=== PATIENT | female | born 1965 | race Caucasian/White ===

== ENCOUNTER 2018-09-24 14:44 | Inpatient (IN) | payer SELFPAY ==
[2018-09-24] MEDS ORDERED: NA CHLORIDE 0.9% 1,000 ML ONE ×2 (15:12→19:22)
[2018-09-24] MEDS ORDERED: ONDANSETRON 4 MG/2 ML VIAL ONE ×2 (15:12→19:22)
[2018-09-24 15:22] LABS: Absolute Lymphocytes (CBC) 2.1 K/uL (0.7-4.9); Absolute Monocytes 0.4 K/uL (0.1-1.3); Absolute Neutrophil 9.5 K/uL (1.8-8.0); Basophils % 0.3 % (0-1.3); Eosinophils % 0.6 % (0-4.4); Hematocrit 41.5 % (36.0-45.0); Lymphocytes % 17.1 % (15.3-44.8); MPV 9.3 fL (7.6-11.3); Monocytes % 3.3 % (3.3-12.3); RBC Red Blood Cell Count 4.85 M/uL (3.86-4.86)
[2018-09-24 16:09] LABS: ALT/SGPT 73 U/L (12-78); AST/SGOT 48 U/L (15-37); Albumin 3.5 g/dL (3.4-5.0); Alkaline Phosphatase 233 U/L (45-117); BUN Blood Urea Nitrogen 11 mg/dL (7-18); Bicarbonate 27 mmol/L (21-32); Bilirubin Direct 0.2 mg/dL (0-0.2); Bilirubin Total 0.4 mg/dL (0.2-1.0); Glucose Level 387 mg/dL (74-106); Lipase 3653 U/L (73-393); Potassium 3.9 mmol/L (3.5-5.1); Protein, Total 8.1 g/dL (6.4-8.2); Sodium Level 139 mmol/L (136-145)
[2018-09-24] MEDS ORDERED: MORPHINE 4 MG/ML SYR ONE (16:24)
[2018-09-24] MEDS ORDERED: PROMETHAZINE 25 MG/ML VIAL ONE (16:44)
--- NOTE | 2018-09-24 18:29 | EDPHYS ---
Physician Documentation [facility] Name: Sunita Donohue Age: 52 yrs Sex: Female : 1965 Arrival Date: 09/24/2018 Time: 14:47 Bed 30 Private MD: ED Physician Graham Mccartney HPI: 09/24 15:29 This 52 yrs old Female presents to ER via Ambulatory with complaints of rn Abdominal Pain, Vomiting. 15:29 The patient presents to the emergency department with nausea, vomiting, diarrhea, rn abdominal pain. Onset: The symptoms/episode began/occurred this morning. Possible causes: unknown. The symptoms are aggravated by nothing. The symptoms are alleviated by nothing. Associated signs and symptoms: Pertinent positives: abdominal pain, diarrhea, nausea, vomiting. Severity of symptoms: At their worst the symptoms were moderate in the emergency department the symptoms are unchanged. The patient has not experienced similar symptoms in the past. The patient has not recently seen a physician. Historical: - Allergies: 15:06 No Known Allergies; ph - Home Meds: 15:16 lisinopril 20 mg Oral tab 1 tab once daily [Active]; rv - PMHx: 15:06 Diabetes - NIDDM; Hypertension; ph - PSHx: 15:06 Tubal ligation; ph - Immunization history:: Adult Immunizations unknown. - Social history:: Smoking status: Patient/guardian denies using tobacco. - Ebola Screening: : No symptoms or risks identified at this time. - Family history:: not pertinent. - Hospitalizations: : No recent hospitalization is reported. ROS: 15:38 Constitutional: Negative for fever, chills, and weight loss, Eyes: Negative for injury, rn pain, redness, and discharge, Neck: Negative for injury, pain, and swelling, Cardiovascular: Negative for chest pain, palpitations, and edema, Respiratory: Negative for shortness of breath, cough, wheezing, and pleuritic chest pain, Abdomen/GI: Negative for constipation, MS/Extremity: Negative for injury and deformity, Skin: Negative for injury, rash, and discoloration, Neuro: Negative for headache, weakness, numbness, tingling, and seizure. Exam: 15:38 Constitutional: This is a well developed, well nourished patient who is awake, alert, rn holding emesis bag and stomach Head/Face: Normocephalic, atraumatic. Eyes: Pupils equal round and reactive to light, extra-ocular motions intact. Lids and lashes normal. Conjunctiva and sclera are non-icteric and not injected. Cornea within normal limits. Periorbital areas with no swelling, redness, or edema. Cardiovascular: Regular rate and rhythm, No pulse deficits. Respiratory: Lungs have equal breath sounds bilaterally, clear to auscultation, No increased work of breathing, no retractions or nasal flaring. Abdomen/GI: soft, mild epigastric tenderness, no rebound Skin: Warm, dry with normal turgor. Normal color with no rashes, no lesions, and no evidence of cellulitis. MS/ Extremity: Pulses equal, no cyanosis. Neurovascular intact. Full, normal range of motion. Equal circumference. Neuro: Awake and alert, GCS 15, oriented to person, place, time, and situation. Cranial nerves II-XII grossly intact. Motor strength 5/5 in all extremities. Sensory grossly intact. Cerebellar exam normal. Vital Signs: 15:06 BP 139 / 73; Pulse 66; Resp 22; Temp 98.2(O); Pulse Ox 99% on R/A; Weight 90.72 kg; ph Height 5 ft. 4 in. (162.56 cm); Pain 10/10; 15:34 BP 145 / 66; Pulse 73; Resp 18 S; Pulse Ox 100% on R/A; rv 16:00 BP 143 / 68; Pulse 75; Resp 17 S; Pulse Ox 100% on R/A; rv 16:38 BP 139 / 65; Pulse 81; Resp 18 S; Pulse Ox 99% on R/A; rv 17:00 BP 141 / 74; Pulse 79; Resp 18; Pulse Ox 100% on R/A; rv 18:00 BP 145 / 75; Pulse 81; Resp 18 S; Pulse Ox 97% on R/A; rv 20:31 BP 138 / 72; Pulse 86; Resp 18; Pulse Ox 100% on R/A; rv 15:06 Body Mass Index 34.33 (90.72 kg, 162.56 cm) ph MDM: 14:57 Patient medically screened. rn 18:23 Data reviewed: vital signs, nurses notes. Counseling: I had a detailed discussion with tw4 the patient and/or guardian regarding: the historical points, exam findings, and any diagnostic results supporting the discharge/admit diagnosis. Physician consultation: Karli Perez MD was called at 18:22, was contacted at 18:22, regarding admission, patient's condition, need to evaluate the patient as soon as possible, and will see patient in inpatient room. 09/24 15:04 Order name: Basic Metabolic Panel rn 09/24 15:04 Order name: CBC with Diff; Complete Time: 16:09 rn 09/24 15:04 Order name: Hepatic Function rn 09/24 15:04 Order name: Lipase rn 09/24 16:42 Order name: Urine Dipstick--Ancillary (enter results) 09/24 16:50 Order name: Urine --Ancillary (enter results) 09/24 15:04 Order name: US Abdomen Limited rn 09/24 15:04 Order name: CT Abd/Pelvis - W/Contrast rn 09/24 18:33 Order name: Triglycerides Level EDNM 09/24 20:01 Order name: Triglycerides Level [facility] 09/24 15:04 Order name: IV Saline Lock; Complete Time: 15:13 rn 09/24 15:04 Order name: Labs collected and sent; Complete Time: 15:13 rn 09/24 15:04 Order name: EKG; Complete Time: 15:07 rn 09/24 15:04 Order name: EKG - Nurse/Tech; Complete Time: 15:12 rn Administered Medications: 15:10 Drug: Zofran 4 mg Route: IVP; Site: right antecubital; rv 16:43 Follow up: Response: Nausea unchanged rv 15:10 Drug: NS 0.9% 1000 ml Route: IV; Rate: 1000 ml; Site: right antecubital; rv 16:43 Follow up: IV Status: Completed infusion rv 16:17 Drug: morphine 4 mg Route: IVP; Site: right antecubital; rv 16:43 Follow up: Response: Pain is decreased rv 16:43 Drug: Phenergan 12.5 mg Route: IVP; Site: right antecubital; rv 20:30 Follow up: Response: Nausea unchanged rv 19:16 Drug: NS 0.9% 1000 ml Route: IV; Rate: 1 bolus; Site: right antecubital; rv 20:29 Follow up: IV Status: Completed infusion rv 19:16 Drug: Zofran 4 mg Route: IVP; Site: right antecubital; rv 20:29 Follow up: Response: Nausea is decreased rv Disposition: 09/24/18 18:28 Hospitalization ordered by Karli Perez for Inpatient Admission. Preliminary diagnosis is Acute pancreatitis, unspecified. - Bed requested for Telemetry/MedSurg (Inpatient). - Status is Inpatient Admission. rv - Condition is Stable. - Problem is new. - Symptoms have improved. UTI on Admission? No Signatures: Dispatcher [employer] EDMS Johanny reyes Graham Roland MD MD rn Hall, Patricia, RN RN Carson Hilliard MD MD tw4 Spencer Rivera RN RN rv Corrections: (The following items were deleted from the chart) 18:47 18:28 Hospitalization Ordered by Karli Perez MD for Inpatient Admission. Preliminary bd diagnosis is Acute pancreatitis, unspecified. Bed requested for Telemetry/MedSurg (Inpatient). Status is Inpatient Admission. Condition is Stable. Problem is new. Symptoms have improved. UTI on Admission? No. tw4 20:43 18:47 09/24/2018 18:28 Hospitalization Ordered by Karli Perez MD for Inpatient rv Admission. Preliminary diagnosis is Acute pancreatitis, unspecified. Bed requested for Telemetry/MedSurg (Inpatient). Status is Inpatient Admission. Condition is Stable. Problem is new. Symptoms have improved. UTI on Admission? No. bd
--- NOTE | 2018-09-24 18:29 | ER ---
Nurse's Notes [facility] Name: Sunita Donohue Age: 52 yrs Sex: Female : 1965 Arrival Date: 09/24/2018 Time: 14:47 Bed 30 Private MD: Diagnosis: Acute pancreatitis, unspecified Presentation: 09/24 15:03 Presenting complaint: Patient states: N/V and abdominal pain since this morning, c/o ph pain in umbilical region, also reports diarrhea yesterday, denies fever or chills. Transition of care: patient was not received from another setting of care. Onset of symptoms was September 24, 2018. Risk Assessment: Do you want to hurt yourself or someone else? Patient reports no desire to harm self or others. Initial Sepsis Screen: Does the patient meet any 2 criteria? No. Patient's initial sepsis screen is negative. Does the patient have a suspected source of infection? No. Patient's initial sepsis screen is negative. Care prior to arrival: None. 15:03 Method Of Arrival: Ambulatory ph 15:03 Acuity: RIKI 3 ph Historical: - Allergies: 15:06 No Known Allergies; ph - Home Meds: 15:16 lisinopril 20 mg Oral tab 1 tab once daily [Active]; rv - PMHx: 15:06 Diabetes - NIDDM; Hypertension; ph - PSHx: 15:06 Tubal ligation; ph - Immunization history:: Adult Immunizations unknown. - Social history:: Smoking status: Patient/guardian denies using tobacco. - Ebola Screening: : No symptoms or risks identified at this time. - Family history:: not pertinent. - Hospitalizations: : No recent hospitalization is reported. Screenin:15 Abuse screen: Denies threats or abuse. Denies injuries from another. Nutritional rv screening: No deficits noted. Tuberculosis screening: No symptoms or risk factors identified. Fall Risk None identified. Assessment: 15:14 General: Appears in no apparent distress. uncomfortable, Behavior is calm, cooperative. rv Pain: Complains of pain in abdomen. Neuro: Level of Consciousness is awake, alert, obeys commands, Oriented to person, place, time, situation. Cardiovascular: Capillary refill < 3 seconds. Respiratory: Airway is patent. GI: Bowel sounds present X 4 quads. Abd is soft in epigastric area Abdomen is tender to palpation. : No signs and/or symptoms were reported regarding the genitourinary system. EENT: No signs and/or symptoms were reported regarding the EENT system. Derm: Skin is intact. Musculoskeletal: No signs and/or symptoms reported regarding the musculoskeletal system. 16:45 Reassessment: Patient appears in no apparent distress at this time. pain is decreased. rv patient still with nausea. 18:05 Reassessment: Patient appears in no apparent distress at this time. awaiting ct scan. rv Vital Signs: 15:06 BP 139 / 73; Pulse 66; Resp 22; Temp 98.2(O); Pulse Ox 99% on R/A; Weight 90.72 kg; ph Height 5 ft. 4 in. (162.56 cm); Pain 10/10; 15:34 BP 145 / 66; Pulse 73; Resp 18 S; Pulse Ox 100% on R/A; rv 16:00 BP 143 / 68; Pulse 75; Resp 17 S; Pulse Ox 100% on R/A; rv 16:38 BP 139 / 65; Pulse 81; Resp 18 S; Pulse Ox 99% on R/A; rv 17:00 BP 141 / 74; Pulse 79; Resp 18; Pulse Ox 100% on R/A; rv 18:00 BP 145 / 75; Pulse 81; Resp 18 S; Pulse Ox 97% on R/A; rv 20:31 BP 138 / 72; Pulse 86; Resp 18; Pulse Ox 100% on R/A; rv 15:06 Body Mass Index 34.33 (90.72 kg, 162.56 cm) ph ED Course: 14:47 Patient arrived in ED. mr 14:57 Graham Mccartney MD is Attending Physician. rn 15:05 Triage completed. ph 15:06 Arm band placed on Patient placed in an exam room, on a stretcher, on pulse oximetry. ph 15:10 Inserted saline lock: 18 gauge in right antecubital area, using aseptic technique. rv Blood collected. 15:13 Basic Metabolic Panel Sent. rv 15:13 CBC with Diff Sent. rv 15:13 Hepatic Function Sent. rv 15:13 Lipase Sent. rv 15:13 US Abdomen Limited Sent. rv 15:14 EKG done, by driver service technician. reviewed by Graham Mccartney MD. at1 15:15 Patient has correct armband on for positive identification. Bed in low position. Call rv light in reach. Side rails up X 1. Adult w/ patient. Pulse ox on. NIBP on. 15:19 US Abdomen Limited In Process Unspecified. EDMS 18:[address] sj 18:17 CT completed. Patient tolerated procedure well. Patient moved back from CT. vm2 18:17 CT Abd/Pelvis - W/Contrast In Process Unspecified. EDMS 18:27 Karli Perez MD is Hospitalizing Provider. tw4 20:31 No provider procedures requiring assistance completed. Patient admitted, IV remains in rv place. intact. Administered Medications: 15:10 Drug: Zofran 4 mg Route: IVP; Site: right antecubital; rv 16:43 Follow up: Response: Nausea unchanged rv 15:10 Drug: NS 0.9% 1000 ml Route: IV; Rate: 1000 ml; Site: right antecubital; rv 16:43 Follow up: IV Status: Completed infusion rv 16:17 Drug: morphine 4 mg Route: IVP; Site: right antecubital; rv 16:43 Follow up: Response: Pain is decreased rv 16:43 Drug: Phenergan 12.5 mg Route: IVP; Site: right antecubital; rv 20:30 Follow up: Response: Nausea unchanged rv 19:16 Drug: NS 0.9% 1000 ml Route: IV; Rate: 1 bolus; Site: right antecubital; rv 20:29 Follow up: IV Status: Completed infusion rv 19:16 Drug: Zofran 4 mg Route: IVP; Site: right antecubital; rv 20:29 Follow up: Response: Nausea is decreased rv Outcome: 18:28 Decision to Hospitalize by Provider. tw4 20:32 Admitted to Med/surg accompanied by tech, via wheelchair, room 209, with chart, Report rv called to SAMARA TYLER 20:32 Condition: good 20:32 Instructed on the need for admit. 20:43 Patient left the ED. rv Signatures: Dispatcher [employer] EDDE Leija, Gely RamirezShabana Roman, MD MD rn Gonzales, Amanda, channel marketing specialist EKG Tat1 Meagn Isaac RN RN Any Mata 2 Carson Hilliard MD MD tw4 Spencer Rivera, RN RN rv
--- NOTE | 2018-09-24 18:32 | RAD REPORT ---
EXAM DESCRIPTION: CT - Abdomen Pelvis W Contrast - 09/24/2018 6:17 pm CLINICAL HISTORY: Abdominal pain with vomiting COMPARISON: 2016 TECHNIQUE: Computed axial tomography of the abdomen pelvis was obtained. 100 cc Isovue-300 was admin istered intravenously. Oral contrast was given All CT scans are performed using dose optimization technique as appropriate and may include automated exposure control or mA/KV adjustment according to patient size. FINDINGS: Fatty liver Moderate stranding is present within the fat adjacent to the pancreas. A pseudocyst is not seen. A sm all amount of ill-defined peripancreatic fluid is present. . There is no evidence of diverticulitis. Small umbilical hernia IMPRESSION: Moderate pancreatitis.
--- NOTE | 2018-09-24 18:33 | RAD REPORT ---
EXAM DESCRIPTION: US - Abdomen Exam Limited - 09/24/2018 3:20 pm CLINICAL HISTORY: Abdominal pain. COMPARISON: None. FINDINGS: The gallbladder wall is not thickened. A gallstone is not seen. The biliary tree is normal caliber. IMPRESSION: Unremarkable gallbladder ultrasound.
--- NOTE | 2018-09-24 19:38 | EKG ---
Test Date: 2018-09-24 Test Time: 15:06:31 Business Continuity Specialist: MIGDALIA MEASUREMENT RESULTS: Intervals: Rate: 67 [place]: 158 QRSD: 90 QT: 436 QTc: 460 [place]: P: 48 [place]: 158 QRS: 43 T: 36 INTERPRETIVE STATEMENTS: Normal sinus rhythm Normal ECG Compared to ECG 04/19/2017 20:05:24 No significant changes Electronically Signed On 09-24-18 19:37:14 CARAMEL CUTTER HELPER by Juaquin Oliveira
[2018-09-24 20:03] LABS: Urine Blood TRACE (NEG); Urine Glucose 2+ (NEG); Urine Protein NEGATIVE (NEG); Urine Specific Gravity 1.015 (1.005-1.030); Urine pH 6.5 (5.0-7.0)
[2018-09-24 20:03] LABS: Urine Specific Gravity 1.015 (1.005-1.030)
[2018-09-24] MEDS ORDERED: MORPHINE 2 MG/ML SYR IV PRN (21:31)
--- NOTE | 2018-09-24 21:41 | P.HP ---
Certification for Inpatient Patient admitted to: Inpatient With expected LOS: >2 Midnights Practitioner: I am a practitioner with admitting privileges, knowledge of patient current condition, hospital course, and medical plan of care. Services: Services provided to patient in accordance with Admission requirements found in Title 42 Section 412.3 of the Code of Federal Regulations Patient History Date of Service: 09/24/18 Reason for admission: acute pancreatitis History of Present Illness: Ms Donohue is a 52 yeas old woman with history of DM II, HTN, who start a couple of days ago with some nausea and vomiting. This morning she start complaining of severe abdominal pain, localized in epigastric area, radiated to left upper quadrant, 10/10 of intensity. N/V got worse today. No history of fever but has had chills. She has never had this kind of pain in the past. She does not drink alcohol. Lab work remarkable for leukocytosis with elevated lipase. CT abd/pelvis consistent with acute pancreatitis. Abd US is negative for cholelithiasis, biliary tree with normal caliber, normal gallbladder. Allergies No Known Allergy (Uncoded 09/24/18 21:33) Unknown No Known Al Allergy (Uncoded 04/18/17 18:14) Unknown No Known All Allergy (Uncoded 04/19/17 23:26) Unknown Home medications list reviewed: Yes Home Medications: Lisinopril 20 mg PO DAILY 09/24/18 - Past Medical/Surgical History -: HTN -: diabetes mellitus II -: tubal ligation - Family History Family History: Reviewed- Non-Contributory - Social History Smoking Status: Former smoker Alcohol use: No CD- Drugs: No Place of Residence: Home Review of Systems 10-point ROS is otherwise unremarkable Physical Examination - Vital Signs Temperature: 98.8 F Blood Pressure: 138/72 Pulse: 86 Respirations: 18 Pulse Ox (%): 97 - Physical Exam General: Alert, In no apparent distress HEENT: Atraumatic, PERRLA, Mucous membr. moist/pink, EOMI, Sclerae nonicteric Neck: Supple, 2+ carotid pulse no bruit, No LAD, Without JVD or thyroid abnormality Respiratory: Clear to auscultation bilaterally, Normal air movement Cardiovascular: Regular rate/rhythm, Normal S1 S2 Gastrointestinal: Normal bowel sounds, Tenderness (epigastric area) Musculoskeletal: No tenderness Integumentary: No rashes Neurological: Normal speech, Normal strength at 5/5 x4 extr, Normal tone, Normal affect Lymphatics: No axilla or inguinal lymphadenopathy - Studies Laboratory Data (last 24 hrs) 09/24/18 15:10: WBC 12.1 H, Hgb 13.7, Hct 41.5, Plt Count 258 09/24/18 15:10: Sodium 139, Potassium 3.9, BUN 11, Creatinine 0.69, Glucose 387 H, Total Bilirubin 0.4, AST 48 H, ALT 73, Alkaline Phosphatase 233 H, Triglycerides 163 H, Lipase 3653 H Assessment and Plan - Problems (Diagnosis) (1) Acute pancreatitis Current Visit: Yes Status: Acute Qualifiers: Pancreatitis type: idiopathic Acute pancreatitis complication: no infection or necrosis Qualified Code(s): K85.00 - Idiopathic acute pancreatitis without necrosis or infection (2) HTN (hypertension) Current Visit: Yes Status: Acute Qualifiers: Hypertension type: essential hypertension Qualified Code(s): I10 - Essential (primary) hypertension (3) Diabetes mellitus Current Visit: Yes Status: Acute Qualifiers: Diabetes mellitus type: type 2 Diabetes mellitus long-term insulin use: without long term care social worker use Diabetes mellitus complication status: with unspecified complications Qualified Code(s): E11.8 - Type 2 diabetes mellitus with unspecified complications - Plan The patient will be admitted to the hospital due to acute pancreatitis. She has elevated but relatively low triglycerides to induce pancreatitis, no obvious gallstones, no alcohol intake history. Etiology is not clear at this point. Will continue with IV fluids, bowel rest, pain medication, repeat lab work in AM. - Advance Directives Does patient have a Living Will: No Does patient have a Durable POA for Healthcare: No - Code Status/Comfort Care Code Status Assessed: Yes Code Status: Full Code
[2018-09-24] MEDS: NA CHLORIDE 0.9% 1,000 ML IV SCH (22:05)
[2018-09-24] MEDS: MORPHINE 4 MG/ML SYR IV PRN (22:31)
[2018-09-25] MEDS: INSULIN -REGULAR HUMAN 50 UNIT/0.5 ML ML SQ SCH ×4 (00:36→18:00)
[2018-09-25] MEDS: ONDANSETRON 4 MG/2 ML VIAL IV PRN ×5 (00:37→23:08)
[2018-09-25 01:13] LABS: Urine Appearance CLEAR; Urine Bilirubin NEGATIVE (NEG); Urine Blood TRACE (NEG); Urine Color YELLOW; Urine Glucose 3+ (NEG); Urine Protein NEGATIVE (NEG); Urine Specific Gravity >=1.030 (1.005-1.030); Urine pH 5.5 (5.0-7.0)
[2018-09-25 01:18] LABS: Urine Microscopic Reflex ORDER UMIC
[2018-09-25 01:57] LABS: Urine Bacteria <20 /HPF (<20); Urine Culture Reflex Order NOT NEEDED; Urine RBC <5 /HPF (NONE SEEN)
[2018-09-25] MEDS: MORPHINE 4 MG/ML SYR IV PRN ×4 (05:41→22:42)
[2018-09-25] MEDS: NA CHLORIDE 0.9% 1,000 ML IV SCH ×4 (05:42→23:45)
[2018-09-25 06:16] LABS: Absolute Lymphocytes (CBC) 1.9 K/uL (0.7-4.9); Absolute Monocytes 0.4 K/uL (0.1-1.3); Absolute Neutrophil 7.6 K/uL (1.8-8.0); Basophils % 0.2 % (0-1.3); Eosinophils % 0.2 % (0-4.4); Hematocrit 39.1 % (36.0-45.0); Lymphocytes % 18.7 % (15.3-44.8); Monocytes % 4.1 % (3.3-12.3); RBC Red Blood Cell Count 4.56 M/uL (3.86-4.86)
[2018-09-25 06:48] LABS: ALT/SGPT 59 U/L (12-78); AST/SGOT 31 U/L (15-37); Alkaline Phosphatase 190 U/L (45-117); BUN Blood Urea Nitrogen 10 mg/dL (7-18); Bicarbonate 27 mmol/L (21-32); Bilirubin Total 0.4 mg/dL (0.2-1.0); Glucose Level 247 mg/dL (74-106); Lipase 2039 U/L (73-393); Magnesium 1.8 mg/dL (1.8-2.4); Potassium 3.8 mmol/L (3.5-5.1); Protein, Total 7.2 g/dL (6.4-8.2); Sodium Level 140 mmol/L (136-145)
[2018-09-25] MEDS ORDERED: MAGNESIUM SULFATE 1 gm IVPB 1 GM/100 ML BAG IV ONE (08:00)
[2018-09-25] MEDS: ENOXAPARIN 40 MG/0.4 ML SQ SCH (08:46)
[2018-09-25] MEDS: LISINOPRIL 20 MG TAB PO SCH (08:51)
[2018-09-25] MEDS ORDERED: INFLUENZA VACCINE (for 3y+) 0.5 ML DOSE IMVAC ONE (09:00)
[2018-09-25] MEDS ORDERED: KCL 20 MEQ/100 mL IVPB 20 MEQ/100 ML BAG IV SCH (09:00)
[2018-09-25] MEDS: NYSTATIN 500,000 UNIT/5 ML UDC PO SCH ×4 (10:09→20:42)
--- NOTE | 2018-09-25 12:31 | PN ---
Date of Progress Note: 09/25/2018 Subjective: The patient is seen and examined. Chart reviewed, and case discussed with RN. Family at the bedside. Treatment plan explained. All questions were answered. The patient states that she continues to have some nausea. No significant amount of vomiting. Does report some abdominal pain. Medications: List reviewed. Physical Examination: Vital Signs: Temperature 98.5, heart rate 82, blood pressure 179/81, respirations 16, O2 of 98% on room air. General: Awake, alert, oriented x3. An ill-appearing obese female. CV: S1, S2. Peripheral pulses present. No murmurs. Respiratory: Moving air well bilaterally. No wheezing or stridor. Gastrointestinal: Abdomen is soft. Tenderness to palpation in the epigastric region. No guarding or rigidity. Bowel sounds positive. Extremities: No clubbing, cyanosis, or edema. Neuro: Cranial nerves 2 through 12 intact grossly. No focal neurological deficit. Speech is normal. Laboratory Data: Sodium 140, potassium 3.8, chloride 108, CO2 of 27, BUN 10, creatinine 0.57, glucose 247, calcium 8.3, magnesium 1.8, albumin 3, lipase 2039. WBC 10, H and H 12.9 and 39.1, platelets 239, neutrophils 76%. Assessment: A 52-year-old female with: 1. Acute pancreatitis, likely idiopathic. No infection or necrosis. CT scan consistent with pancreatitis. Ultrasound is negative for any gallbladder issues or stones. We will continue with IV fluids, pain medications. We will start on clear liquid diet. 2. Essential hypertension, stable. We will adjust medications. 3. Diabetes mellitus type 2 without long-term use of insulin with hyperglycemia. The patient has not been taking any medications, did not see any doctor. The patient was counseled. We will need diabetic education and diabetic supplies. thoroughbred horse farm manager informed, she will provide resources to the patient. 4. Obesity, BMI 31. 5. Noncompliance, intentional. 6. Thrush: nystatin Plan: We will continue to monitor lipase levels. Advanced diet as tolerated. Likely discharge in the next 24 to 48 hours once the pain is improved and tolerating diet. /MODTrevon Voice ID: [id number] Report ID: [id number] [facility]ALKap[facility]
[2018-09-26] MEDS: INSULIN -REGULAR HUMAN 50 UNIT/0.5 ML ML SQ SCH ×6 (00:34→23:39)
[2018-09-26] MEDS: NA CHLORIDE 0.9% 1,000 ML IV SCH ×3 (06:03→21:32)
[2018-09-26] MEDS: MORPHINE 4 MG/ML SYR IV PRN ×4 (06:09→23:38)
[2018-09-26] MEDS: ONDANSETRON 4 MG/2 ML VIAL IV PRN ×3 (06:09→17:46)
[2018-09-26 06:22] LABS: BUN Blood Urea Nitrogen 7 mg/dL (7-18); Bicarbonate 23 mmol/L (21-32); Glucose Level 166 mg/dL (74-106); Lipase 267 U/L (73-393); Magnesium 1.9 mg/dL (1.8-2.4); Potassium 3.4 mmol/L (3.5-5.1); Sodium Level 139 mmol/L (136-145)
[2018-09-26] MEDS: KCL 20 MEQ/100 mL IVPB 20 MEQ/100 ML BAG IV SCH ×2 (08:36→11:21)
[2018-09-26] MEDS: NYSTATIN 500,000 UNIT/5 ML UDC PO SCH ×4 (08:37→21:32)
[2018-09-26] MEDS: ENOXAPARIN 40 MG/0.4 ML SQ SCH (08:37)
[2018-09-26] MEDS: LISINOPRIL 20 MG TAB PO SCH ×2 (08:43→13:48)
--- NOTE | 2018-09-26 13:32 | RAD REPORT ---
EXAM DESCRIPTION: MRI - Cholangiogram - 09/26/2018 1:23 pm CLINICAL HISTORY: Abdominal pain, nausea and vomiting COMPARISON: CT study September 24, abdomen ultrasound September 24 TECHNIQUE: Axial and coronal heavily T2 weighted sequences were obtained. Coronal T2 HASTE fat satur ation static and coronal multiplane reconstruction imaging generated and reviewed. Horizontal and vida tical axis rotational views obtained using maximum intensity projection (MIP) protocol. FINDINGS: No gallbladder abnormality identified. Biliary tree is normal size at 5- 6 mm maximum diam eter. No duct stone identifiable. No stricture, mass or suspicious finding identifiable. Pancreatic d uct is not visualized. IMPRESSION: Unremarkable MRCP examination.
--- NOTE | 2018-09-26 13:45 | RAD REPORT ---
EXAM DESCRIPTION: RAD - Chest Pa And Lat (2 Views) - 09/26/2018 1:34 pm CLINICAL HISTORY: Abdominal pain, smoking history, nausea and vomiting COMPARISON: April 2017 TECHNIQUE: PA and lateral views of the chest were obtained. FINDINGS: The lungs are clear. Heart size is normal and central vasculature is within normal limit s. No pleural effusion or pneumothorax seen. No acute bony finding noted. No aortic abnormality. IMPRESSION: No acute cardiopulmonary process. No significant interval changes.
[2018-09-26] MEDS: METOCLOPRAMIDE 10 MG/2mL INJ IV PRN ×2 (15:45→23:38)
--- NOTE | 2018-09-26 16:32 | PN ---
Date of Progress Note: 09/26/2018 Subjective: The patient is seen and examined. Chart reviewed and case discussed with RN. The patient states her nausea and vomiting have improved, yesterday was unable to tolerate clear liquids. Medications: List reviewed. Physical Examination: Vital Signs: Temperature 97.3, heart rate 79, blood pressure 119/59, respirations 18, O2 98% on room air. General: Awake, alert, oriented x3. Some distress due to pain, ill-appearing, older than stated age, obese female. CV: S1, S2. Regular rate and rhythm. Peripheral pulses present. Respiratory: Moving air well bilaterally. No wheezing or stridor. Gastrointestinal: Abdomen is soft. Mild tenderness to palpation in the epigastric region, however, improved. No distention. No rebound or guarding. Bowel sounds are positive. Extremities: No clubbing, cyanosis, or edema. Neurologic: Nonfocal. Laboratory Data: Sodium 139, potassium 3.4, chloride 108, CO2 23, BUN 7, creatinine 0.39, glucose 156. Hemoglobin A1c 13.3%. Calcium is 8, lipase 267. Assessment: A 52-year-old female with: 1. Acute pancreatitis, likely idiopathic. CT scan did not show any infection or necrosis. GI has been consulted. Lipase is normalized. The patient's symptoms are improving. We will start on clear liquid diet. Continue IV fluids and pain medications. 2. Diabetes mellitus type 2 without long-term use of insulin with hyperglycemia, uncontrolled. Hemoglobin A1c is 13%. Continue with sliding scale insulin and monitor Accu-Cheks. The patient to be set up with diabetic education as an outpatient. 3. Essential hypertension, stable. 4. Obesity, BMI 31. 5. Noncompliance, intentional. 6. Thrush. We will continue nystatin swish and swallow. 7. Gastrointestinal and deep venous thrombosis prophylaxis with Lovenox. 8. Hypokalemia: replace and monitor. Plan: Start on clear liquid diet and advance as tolerated. We will anticipate discharge in the next 24 hours if continues to improve. Appreciate GI recommendations. ADDENDUM: Patient continues to have vomiting despite zofran. Likely has diabetic gastroparesis. Trial of reglan. SA/MODL Voice ID: [id number] Report ID: [id number] [facility]
[2018-09-27] MEDS ORDERED: D50W 25 GM/50 ML SYRINGE IV PRN (00:15)
[2018-09-27] MEDS ORDERED: GLUCAGON 1 MG/VIAL IM PRN (00:15)
[2018-09-27] MEDS: NA CHLORIDE 0.9% 1,000 ML IV SCH ×4 (03:36→20:49)
[2018-09-27 04:59] LABS: BUN Blood Urea Nitrogen 6 mg/dL (7-18); Bicarbonate 25 mmol/L (21-32); Glucose Level 122 mg/dL (74-106); Lipase 141 U/L (73-393); Potassium 3.4 mmol/L (3.5-5.1); Sodium Level 142 mmol/L (136-145)
[2018-09-27] MEDS: INSULIN -REGULAR HUMAN 50 UNIT/0.5 ML ML SQ SCH ×4 (07:30→20:51)
[2018-09-27] MEDS: METOCLOPRAMIDE 10 MG/2mL INJ IV PRN (08:22)
[2018-09-27] MEDS: MORPHINE 4 MG/ML SYR IV PRN ×2 (08:22→20:50)
[2018-09-27] MEDS: NYSTATIN 500,000 UNIT/5 ML UDC PO SCH ×4 (09:00→20:50)
[2018-09-27] MEDS ORDERED: POTASSIUM CL SA 10 MEQ TAB PO ONE ×2 (09:00→17:00)
[2018-09-27] MEDS: LISINOPRIL 20 MG TAB PO SCH (09:01)
[2018-09-27] MEDS: ENOXAPARIN 40 MG/0.4 ML SQ SCH (09:01)
[2018-09-27] MEDS: ONDANSETRON 4 MG/2 ML VIAL IV PRN (10:03)
[2018-09-27] MEDS: METOCLOPRAMIDE 10 MG/2mL INJ IV SCH ×3 (12:33→20:50)
--- NOTE | 2018-09-27 18:11 | P.PN ---
Subjective Date of Service: 09/27/18 Chief Complaint: acute pancreatitis Subjective: Improving (Pancreatitis largely resolved with normal lipase and no abdominal pain now. But still with N/V and HgbA1c elevated at 13.3. Reglan started at 5 mg IV tid.) Review of Systems 10-point ROS is otherwise unremarkable Gastrointestinal: Nausea, Vomiting Physical Examination - Vital Signs Temperature: 98.7 F Blood Pressure: 191/88 Pulse: 89 Respirations: 18 Pulse Ox (%): 96 - Physical Exam General: Alert, In no apparent distress, Oriented x3, Cooperative, Disheveled HEENT: Atraumatic, Normocephalic, PERRLA, EOMI Neck: Supple Respiratory: Normal air movement Cardiovascular: Normal pulses, Regular rate/rhythm Gastrointestinal: Soft and benign, No tenderness, No rebound, No guarding Neurological: Normal speech, Normal strength at 5/5 x4 extr Assessment And Plan - Current Problems (Diagnosis) (1) Epigastric abdominal pain Current Visit: Yes Status: Acute Comment: Resolved. (2) Nausea & vomiting Current Visit: Yes Status: Acute Comment: Possibly due to DM gastroparesis. (3) Obesity Current Visit: Yes Status: Acute (4) Weight loss Current Visit: Yes Status: Acute Comment: 15 lbs in one month, unexplained. Needs MMG, pap smear. (5) Acute pancreatitis Onset Date: 09/25/18 Current Visit: Yes Status: Acute Comment: Resolved. Qualifiers: Pancreatitis type: idiopathic Acute pancreatitis complication: no infection or necrosis Qualified Code(s): K85.00 - Idiopathic acute pancreatitis without necrosis or infection (6) Diabetes mellitus Onset Date: 09/25/18 Current Visit: Yes Status: Acute Comment: HgbA1c elevated at 13.3 Qualifiers: Diabetes mellitus type: type 2 Diabetes mellitus residential insulin use: without residential use Diabetes mellitus complication status: with unspecified complications Qualified Code(s): E11.8 - Type 2 diabetes mellitus with unspecified complications (7) HTN (hypertension) Onset Date: 09/25/18 Current Visit: Yes Status: Acute Qualifiers: Hypertension type: essential hypertension Qualified Code(s): I10 - Essential (primary) hypertension - Plan REC: 1) Increase Reglan from 5 to 10 mg IV qac/qhs 2) Zofran scheduled 3) DM diet and increase exercise
--- NOTE | 2018-09-27 18:53 | PN ---
Date of Progress Note: 09/27/2018 Subjective: The patient is seen and examined. Chart reviewed, and case discussed with RN. The patient is still having significant amount of nausea and vomiting, unable to keep any of her food down. Pain is well controlled. Medications: List reviewed. Physical Examination: Vital Signs: Temperature 98, heart rate 81, blood pressure 136/73, respirations 18, O2 of 98% on room air. General: Awake, alert, oriented x3. Some mild distress. Appears older than stated age. An obese female. CV: S1, S2. Sinus rhythm. Rhythm regular rate. No murmurs. Respiratory: Moving air well bilaterally. No wheezing or stridor. Gastrointestinal: Abdomen is soft. Mild tenderness to palpation in the epigastric region. No rebound or guarding. Nondistended. Positive bowel sounds. Extremities: No clubbing, cyanosis, or edema. Neurologic: Nonfocal. Laboratory Data: Sodium 142, potassium 3.4, chloride 111, CO2 of 25, BUN 6, creatinine 0.37, glucose 122, calcium 8.2, lipase 141. MRCP shows unremarkable findings. No stone or stricture. Assessment: A 52-year-old female with: 1. Acute pancreatitis, likely idiopathic. CT scan, ultrasound, and magnetic resonance cholangiopancreatography negative for any ductal dilatation. CT scan did show pancreatitis without any infection or necrosis. Lipase is normalized. The patient's pain is improved, however, unable to tolerate a diet, which may be more related to her diabetes and gastroparesis. 2. Diabetes mellitus type 2 without long-term use of insulin with hyperglycemia, uncontrolled. Hemoglobin A1c 13%. We will continue with sliding scale insulin. Add long-acting insulin. 3. Hypokalemia, replace. 4. Diabetic gastroparesis. We will add Reglan with meals scheduled. 5. Obesity, BMI 31. 6. Noncompliance, intentional. 7. Thrush. Nystatin swish and swallow. 8. Gastrointestinal and deep venous thrombosis prophylaxis, PPI and Lovenox. 9. Intractable N/V: anti-emetics Plan: Trial of Reglan. The patient is still unable to tolerate her diet. We will discharge once the patient is able to tolerate diet and improved clinically. SA/MODL Voice ID: [id number] Report ID: [id number] MTDKapil
[2018-09-28] MEDS: MORPHINE 4 MG/ML SYR IV PRN ×2 (03:28→08:30)
[2018-09-28] MEDS: ONDANSETRON 4 MG/2 ML VIAL IV PRN ×2 (03:28→14:44)
[2018-09-28] MEDS: NA CHLORIDE 0.9% 1,000 ML IV SCH ×4 (04:38→20:35)
[2018-09-28 05:29] LABS: Magnesium 1.9 mg/dL (1.8-2.4); Potassium 3.1 mmol/L (3.5-5.1)
[2018-09-28] MEDS: ENOXAPARIN 40 MG/0.4 ML SQ SCH (08:29)
[2018-09-28] MEDS: KCL 20 MEQ/100 mL IVPB 20 MEQ/100 ML BAG IV SCH ×3 (08:29→11:56)
[2018-09-28] MEDS: METOCLOPRAMIDE 10 MG/2mL INJ IV SCH ×4 (08:29→20:36)
[2018-09-28] MEDS: NYSTATIN 500,000 UNIT/5 ML UDC PO SCH ×4 (08:29→20:36)
[2018-09-28] MEDS: INSULIN -REGULAR HUMAN 50 UNIT/0.5 ML ML SQ SCH ×4 (08:29→20:45)
[2018-09-28] MEDS: LISINOPRIL 20 MG TAB PO SCH (08:30)
--- NOTE | 2018-09-28 14:40 | PN ---
Date of Progress Note: 09/28/2018 Subjective: Patient is seen and examined. Chart reviewed and case was discussed with RN and Dr. Eugenio vernon. The patient continues to have significant amount of nausea and vomiting. Not able to tolerate any of her food. Does report some mild pain. Medication: List reviewed. Physical Examination: Vital Signs: Temperature 97.9, heart rate 150/75, respirations 18, O2 97% on room air, heart rate 75 . General: Awake, alert, oriented x3. Appears older than stated age. Obese female. CV: S1, S2. Regular rate and rhythm. Peripheral pulses present. Respiratory: Moving air well bilaterally. No wheezing or stridor. Gastrointestinal: Abdomen is soft. Mild tenderness to palpation. No rebound or guarding. Positive bowel sounds. No masses. No hepatosplenomegaly. Extremities: No clubbing, cyanosis, or edema. Neurologic: Nonfocal. Laboratory Data: Potassium 3.1, magnesium 1.9. Lipase 103. Assessment And Plan: A 52-year-old female with, 1.Acute pancreatitis, likely idiopathic. Lipase has normalized. Significantly improved. Still has some pain. We will discontinue morphine, switch to p.o. pain medications. Continue IV fluids. Ferdinand reciate Dr. Mendes's input. 2.Intractable nausea and vomiting, likely related to diabetic gastroparesis. Reglan dose has been i ncreased to 10 mg IV with meals. Continue Zofran alternatively. We will encourage patient to increa se p.o. intake. 3.Hypokalemia. Replace and monitor. 4.Diabetes mellitus type 2 with long-term use of insulin with hyperglycemia. Continue sliding scale insulin. Monitor Accu-Cheks. 5.Obesity, BMI 31. Counseled. 6.Weight loss, likely secondary to untreated diabetes. The patient is unable to utilize sugar and c irculating in the bloodstream causing neuropathy, nephropathy, etc. The patient was counseled regard ing obtaining cancer screenings including Pap smear, mammogram, and colon cancer screening. The CA19 -9 is pending. Chest x-ray is clear. 7.Noncompliance, intentional. 8.Thrush, improved. Continue nystatin. 9.Diabetic gastroparesis. Reglan dose increased. 10.Gastrointestinal and deep venous thrombosis prophylaxis addressed. /NEAL Voice ID: [id number] Report ID: [id number]
--- NOTE | 2018-09-28 16:24 | P.PN ---
Subjective Date of Service: 09/28/18 Chief Complaint: acute pancreatitis, N/V Subjective: No new changes (N/V unchanged though Reglan increased from 5 to 10 mg. Pancreatitis resolved with normal lipase. She reports occasional MICHELET pain today. Obese with recent 15 lbs weight loss.) Review of Systems 10-point ROS is otherwise unremarkable Gastrointestinal: Nausea, Vomiting, Abdominal Pain Physical Examination - Vital Signs Temperature: 98.7 F Blood Pressure: 178/83 Pulse: 76 Respirations: 18 Pulse Ox (%): 96 - Physical Exam General: Alert, In no apparent distress, Oriented x3, Cooperative HEENT: Atraumatic, Normocephalic, PERRLA, EOMI Neck: Supple Respiratory: Normal air movement Cardiovascular: Normal pulses Gastrointestinal: Soft and benign, No tenderness, No rebound, No guarding Neurological: Normal speech, Normal strength at 5/5 x4 extr Assessment And Plan - Current Problems (Diagnosis) (1) Epigastric abdominal pain Current Visit: Yes Status: Acute Comment: Occasional (2) Nausea & vomiting Current Visit: Yes Status: Acute Comment: Possibly due to DM gastroparesis, but not responsive to increased Reglan dose 5 to 10 mg (3) Obesity Current Visit: Yes Status: Acute (4) Weight loss Current Visit: Yes Status: Acute Comment: 15 lbs in one month, unexplained. Needs MMG, pap smear. (5) Acute pancreatitis Onset Date: 09/25/18 Current Visit: Yes Status: Acute Comment: Resolved. Qualifiers: Pancreatitis type: idiopathic Acute pancreatitis complication: no infection or necrosis Qualified Code(s): K85.00 - Idiopathic acute pancreatitis without necrosis or infection (6) Diabetes mellitus Onset Date: 09/25/18 Current Visit: Yes Status: Acute Comment: HgbA1c elevated at 13.3 Qualifiers: Diabetes mellitus type: type 2 Diabetes mellitus distribution estimator insulin use: without distribution estimator use Diabetes mellitus complication status: with unspecified complications Qualified Code(s): E11.8 - Type 2 diabetes mellitus with unspecified complications (7) HTN (hypertension) Onset Date: 09/25/18 Current Visit: Yes Status: Acute Qualifiers: Hypertension type: essential hypertension Qualified Code(s): I10 - Essential (primary) hypertension - Plan REC: 1) EGD in AM 2) DM diet and increase exercise
[2018-09-28] MEDS: HYDROCODONE/APAP 5/325 MG TAB PO PRN (19:35)
[2018-09-29] MEDS: HYDROCODONE/APAP 5/325 MG TAB PO PRN ×2 (04:34→18:59)
[2018-09-29] MEDS: ONDANSETRON 4 MG/2 ML VIAL IV PRN ×2 (04:34→13:43)
[2018-09-29 05:48] LABS: ALT/SGPT 43 U/L (12-78); AST/SGOT 23 U/L (15-37); Albumin 2.9 g/dL (3.4-5.0); Alkaline Phosphatase 195 U/L (45-117); BUN Blood Urea Nitrogen 5 mg/dL (7-18); Bicarbonate 19 mmol/L (21-32); Bilirubin Total 0.6 mg/dL (0.2-1.0); Glucose Level 138 mg/dL (74-106); Potassium 3.1 mmol/L (3.5-5.1); Protein, Total 7.5 g/dL (6.4-8.2); Sodium Level 137 mmol/L (136-145)
[2018-09-29 05:57] LABS: Absolute Lymphocytes (CBC) 3.1 K/uL (0.7-4.9); Absolute Monocytes 0.6 K/uL (0.1-1.3); Basophils % 0.6 % (0-1.3); Eosinophils % 1.5 % (0-4.4); Hematocrit 39.2 % (36.0-45.0); Lymphocytes % 28.6 % (15.3-44.8); MPV 8.9 fL (7.6-11.3); Monocytes % 5.5 % (3.3-12.3); RBC Red Blood Cell Count 4.69 M/uL (3.86-4.86)
[2018-09-29] MEDS: NYSTATIN 500,000 UNIT/5 ML UDC PO SCH ×4 (08:09→21:11)
[2018-09-29] MEDS: METOCLOPRAMIDE 10 MG/2mL INJ IV SCH ×4 (08:10→21:11)
[2018-09-29] MEDS: INSULIN -REGULAR HUMAN 50 UNIT/0.5 ML ML SQ SCH ×4 (08:10→21:00)
[2018-09-29] MEDS: LISINOPRIL 20 MG TAB PO SCH (08:11)
[2018-09-29] MEDS: NA CHLORIDE 0.9% 1,000 ML IV SCH ×4 (08:11→21:12)
[2018-09-29] MEDS ORDERED: KCL 20 MEQ/100 mL IVPB 20 MEQ/100 ML BAG IV SCH (09:00)
[2018-09-29] MEDS ORDERED: HYDRALAZINE HCL 20 MG/ML VIAL IV PRN (13:25)
--- NOTE | 2018-09-29 14:26 | PN ---
Date of Progress Note: 09/29/2018 Subjective: The patient seen and examined. Chart reviewed and case discussed with RN and Dr. Mendes . The patient unable to tolerate any of her diet, Dr. Mendes recommended schedule for EGD this kirit bautista. Medications: List reviewed. Physical Examination: Vital Signs: Temperature 97.9, heart rate 80, blood pressure 192/87, respirations 20, O2 97% on room air. General: Awake, alert, oriented x3. Some mild distress, ill-appearing, older than stated age. Obes e female. CV: S1 and S2. Regular rate and rhythm. Peripheral pulses present. Respiratory: Moving air well bilaterally. No wheezing. Gastrointestinal: Abdomen is soft. Tenderness to palpation. No rebound or guarding. No masses. N o hepatosplenomegaly. Bowel sounds present. Extremities: No clubbing, cyanosis, or edema. Neurologic: Nonfocal. Laboratory Data: Sodium 137, potassium 3.1 and repeat potassium is 3.5, chloride 106, CO2 19, BUN 5, creatinine 0.36, glucose 138, calcium 8.6. CA19-9 is pending. GGT is 150. WBC 11, H and H 13.1 an d 39.2, platelets 294. Assessment And Plan: A 52-year-old female with: 1.Acute pancreatitis, likely idiopathic. MRCP is negative. No biliary tree abnormality. Triglycer ides obtained, improving. Lipase is normalized. Appreciate Dr. Mendes's input. Unable to tolerate diet, however. 2.Intractable nausea and vomiting. Perhaps related to diabetic gastroparesis or blockage. The nimesh ent is going for EGD today. We will continue with Reglan with meals. 3.Hypokalemia. Replace and monitor secondary to above. 4.Diabetes mellitus type 2 with long-term use of insulin with hyperglycemia. Continue sliding scale insulin. We will monitor blood glucose levels. 5.Obesity, BMI 31. 6.Weight loss unintentional, likely secondary to untreated diabetes. CA19-9 is pending. The patien t will need cancer screening as an outpatient. 7.Noncompliance, intentional. 8.Thrush, improved. 9.Diabetic gastroparesis. Continue Reglan. 10.Elevated blood pressure without diagnosis of hypertension. We will add p.r.n. medications. 11.Gastrointestinal and deep venous thrombosis prophylaxis addressed. Plan: Follow up on EGD results. /NEAL Voice ID: [id number] Report ID: [id number]
[2018-09-29] MEDS ORDERED: LIDOCAINE 1% MPF 5 ML VIAL ONE (17:36)
[2018-09-29] MEDS ORDERED: PROPOFOL 200 MG/20 ML VIAL IV ONE (17:36)
[2018-09-29] MEDS: ONDANSETRON 4 MG/2 ML VIAL IV SCH (18:46)
[2018-09-29] MEDS: PANTOPRAZOLE 40MG TABLET PO SCH (18:47)
--- NOTE | 2018-09-29 19:24 | ENDO RPT ---
[address], [address] EGD PROCEDURE REPORT EXAM DATE: 09/29/2018 PATIENT NAME: Sunita Donohue MR#: [id number] BIRTHDATE: 1965 ATTENDING: Toñito Mendes Dr STATUS: inpatient TRANSPORT ANALYST: Danya Dunlap and Clari Tobar RN INDICATIONS: The patient is a 52 yr old Female here for an EGD due to nausea and vomiting and mid epigastric abdominal pain PROCEDURE PERFORMED: EGD with biopsy MEDICATIONS: Per Anesthesia. TOPICAL ANESTHETIC: none CONSENT: The patient understands the risks and benefits of the procedure and understands that these risks include, but are not limited to: sedation, allergic reaction, infection, perforation and/or bleeding. Alternative means of evaluation and treatment include, among others: physical exam, x-rays, and/or surgical intervention. The patient elects to proceed with this endoscopic procedure. DESCRIPTION OF PROCEDURE: During intra-op preparation period all mechanical medical equipment was checked for proper function. Hand hygiene and appropriate measures for infection prevention was taken. Procedure, possible complications, and alternatives including but not limited to the possibility of bleeding, perforation, tear, infection, sepsis, need for surgery, need for blood transfusion, and anesthesia related complications were explained to the patient. After the risks, benefits and alternatives of the procedure were thoroughly explained, Informed consent was verified, confirmed and timeout was successfully executed by the treatment team. The patient was placed in the left lateral position. The patient was anesthetized with topical anesthesia. Through the anesthetized oropharyngeal area, the scope was passed without any difficulty. The Pentax EG-[id number] ([id number]) endoscope was introduced through the mouth and advanced to the third portion of the duodenum. Retroflexed views revealed a small hiatal hernia. The gastroscope was then slowly withdrawn and removed. LA Class C esophagitis was found in the lower esophagus. A small hiatal hernia was found Mild gastritis was found in the body and the antrum of the stomach. Multiple biopsies were obtained and sent to pathology. Multiple erosions were found in the antrum. Duodenitis was found in the descending duodenum. ADVERSE EVENTS: There were no complications. IMPRESSIONS: 1. LA Class C esophagitis in the lower esophagus 2. Small hiatal hernia 3. Mild gastritis in the body and the antrum of the stomach, s/p biopsies 4. Multiple ( 10) erosions with associated specks of dark heme in the antrum 5. Duodenitis in the descending duodenum RECOMMENDATIONS: 1. await biopsy results 2. acid suppression therapy REPEAT EXAM: Toñito Mendes Dr eSigned: Toñito Mendes Dr 09/29/2018 6:11 PM cc: CPT CODES: ICD9 CODES: PATIENT NAME: Sunita Donohue MR#: [id number]
--- NOTE | 2018-09-29 22:41 | CON ---
Date of Consultation: 09/26/2018 Reason For Consultation: Acute pancreatitis with midepigastric pain, nausea, vomiting. History Of Present Illness: The patient is a 52-year-old white female with history of diabetes, hype rtension, who came to the hospital with midepigastric pain with nausea and vomiting, found to have ac iqugmiut pancreatitis. The patient stated pain is in the mid epigastric, left upper quadrant, right upper quadrant area with 10/10 intensity, now down to 8/10, with persistent nausea, vomiting. The patient states she lost 15 pounds over the past month for unexplained reasons. She is a former smoker. Her last mammogram and Pap smear were plus 2 to 5 years ago and has not had that repeated. She denies a ny fevers, chills. Triglycerides have been normal. Ultrasound has been unremarkable. She has no hi story of alcohol abuse. No gallstones noted on imaging of the abdomen. No trauma, infection, or oth er likely causes of pancreatitis noted as of yet. Past Medical History: Significant for diabetes, hypertension, obesity. She has a tubal ligation as well. Home Medications: Include lisinopril. Allergies: NKDA. Social History: She is single, 3 kids. Quit tobacco in 2002. No alcohol. Family History: Father alive with diabetes, hypertension. Mother alive with diabetes, hypertension. Mother is Andria Donohue. Physical Examination: Vital Signs: The patient is 5 feet 4 inches, 185 pounds. BMI of 32 kg/m2. She has a temperature of 97.3 degrees Fahrenheit, pulse 79, respirations 18, blood pressure 119/59, O2 saturation 95%. HEENT: Normocephalic, atraumatic. Anicteric. Pupils equal, round, and reactive to light. Extraocu lar movements intact. Oropharynx is clear. Neck: Supple. No masses. Lungs: Respirations clear to auscultation bilaterally. Cardiac: Regular rate and rhythm. No gallops or rubs. Abdomen: Positive bowel sounds. Soft, nondistended, obese. Midepigastric pain extending to the rig ht and left upper quadrants. No peritoneal or Kumar signs. Some slight guarding. No rebound. Extremities: No clubbing, cyanosis, or edema. 2+ pulses. Neuro: Alert and oriented x3, grossly nonfocal. 5/5 motor strength. Sensation intact to light touc h. Laboratory Data: The patient yesterday had a white count of 10.0, down from 12.1; hemoglobin of 12.9 ; hematocrit 39.1; MCV of 86; platelet count of 239; polys of 77%; lymphocytes 19%; monocytes 4%. Th e patient has a sodium of 139, potassium 3.4, chloride 108, bicarb 23, BUN 7, creatinine 0.4, glucose 166. Hemoglobin A1c of 13.3, calcium 8.0, magnesium 1.9, lipase 267 , lipase on admission was 2039 with an AST of 31, ALT 59, alkaline phosphatase 190, total protein 7.2, albumin 3.0. Urina lysis 3+ glucose, 3+ ketones, trace blood, negative leukocyte esterase, negative nitrite. Negative w noel blood cells, bacteria, and squamous epithelial cells. Ultrasound of the abdomen was unremarkable. No gallstones, Normal gallbladder with normal biliary tr ee and normal gallbladder wall. CT abdomen and pelvis reveals moderate pancreatitis and fatty liver. Impression: Acute pancreatitis, etiology unclear. The patient has lost 15 pounds over the past alfredo h which has been unexplained. She is a former smoker. Her last mammogram and Pap smear were anywher e from 2 to 5 years ago. She does have midepigastric pain 10/10 maximum, now down to 8/10 with nause a, vomiting. No fevers, chills. Ultrasound of abdomen did not reveal gallstones. She has no histor y of alcohol. No trauma or infection, and with normal triglycerides at 163. Therefore, no clear raiza ology for pancreatitis is noted, but it is interesting she has lost 15 pounds over the past month, wh ich is unexplained in a former smoker. So, we need to investigate the reasons for that, and possible microlithiasis or crystals in bile fluid may be inducing pancreatitis. Recommendations: 1.IV fluids. 2.P.r.n. pain medications and antiemetics. 3.Check MRCP, CA-19-9. 4.Check mammogram, Pap smear. 5.Check chest x-ray. MADIHA/NEAL Voice ID: [id number] Report ID: [id number]
[2018-09-30] MEDS: ONDANSETRON 4 MG/2 ML VIAL IV SCH ×2 (00:02→06:41)
[2018-09-30] MEDS: HYDROCODONE/APAP 5/325 MG TAB PO PRN ×2 (00:02→06:41)
[2018-09-30] MEDS: NA CHLORIDE 0.9% 1,000 ML IV SCH (01:44)
[2018-09-30 06:57] LABS: BUN Blood Urea Nitrogen 6 mg/dL (7-18); Bicarbonate 24 mmol/L (21-32); Glucose Level 139 mg/dL (74-106); Potassium 3.4 mmol/L (3.5-5.1); Sodium Level 140 mmol/L (136-145)
[2018-09-30] MEDS: INSULIN -REGULAR HUMAN 50 UNIT/0.5 ML ML SQ SCH (07:30)
[2018-09-30] MEDS ORDERED: KCL 20 MEQ/100 mL IVPB 20 MEQ/100 ML BAG IV SCH (08:00)
[2018-09-30] MEDS: KCL 20 MEQ/100 mL IVPB 20 MEQ/100 ML BAG IV SCH ×2 (08:40→11:56)
[2018-09-30] MEDS: LISINOPRIL 20 MG TAB PO SCH (08:40)
[2018-09-30] MEDS: NYSTATIN 500,000 UNIT/5 ML UDC PO SCH (08:40)
[2018-09-30] MEDS: METOCLOPRAMIDE 10 MG/2mL INJ IV SCH (08:41)
[2018-09-30] MEDS: PANTOPRAZOLE 40MG TABLET PO SCH (08:41)
[2018-09-30] MEDS ORDERED: LOPERAMIDE HCL 2 MG CAPSULE PO STA (11:35)
--- NOTE | 2018-10-01 05:07 | DS ---
Date of Discharge: 09/30/2018 Consultants: Dr. Mendes with GI. Procedures: Endoscopy on 09/29/2018, results showing esophagitis, gastritis, gastric ulcers within 1 0 with some dark heme, duodenitis. Admitting Diagnoses: 1.Acute pancreatitis. 2.Essential hypertension. 3.Diabetes mellitus type 2, without long-term use of insulin, with hyperglycemia. Discharge Diagnoses: 1.Acute pancreatitis without infection or necrosis, likely idiopathic, resolved. 2.Intractable nausea and vomiting, resolved. 3.Hypokalemia, replaced. 4.Diabetes mellitus type 2 with long-term use of insulin, with hyperglycemia. 5.Obesity, body mass index 31. 6.Diabetic gastroparesis, on Reglan. 7.Unintentional weight loss, likely secondary to untreated diabetes, CA-19-9 elevated. 8.Noncompliance, intentional. 9.Thrush, treated with nystatin. 10.Essential hypertension, uncontrolled. Hospital Course: The patient is a 52-year-old female, does not follow with a physician, has history of diabetes, hypertension, comes in with nausea and vomiting. CT scan showed acute pancreatitis. Sh e had some elevated lipase levels, and WBC count was elevated. The patient was started on IV fluids, pain medications. Lipase level trended down with conservative management. There was no infection o r necrosis. The patient's MRCP was done, which did not show any biliary tree abnormality. She was s een by Dr. Mendes with GI. She did have some intractable nausea and vomiting, which was thought to b e due to her diabetic gastroparesis. The patient does have a hemoglobin A1c of 13.3%, has not been t aking her medications. Overall, the patient did well over the course of the hospital stay. Her path ology report is pending. The patient was counseled regarding her diabetes and hypertension. She was given a list of primary care physicians in the area. 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 She understands t he importance of continuing on her medications. The patient was also counseled to continue with and obtain cancer screening including mammography, Pap smear, and colonoscopy. The patient did report so me unintentional weight loss, which was likely secondary to untreated diabetes. However, CA-19-9 was high. This is a nonspecific marker in the absence of any masses. She again will need screening col onoscopy as she has 50. On her esophagogastroduodenoscopy, she was found to have multiple ulcers, ga stritis, esophagitis, and duodenitis. She will be given a PPI trial for 1 month and will need to be reassessed by GI for continued use and will need repeat EGD to ensure that these ulcers have healed. The patient was then cleared for discharge. She was able to tolerate her diet. She was able to amb ulate without difficulty. Medications: As per medication reconciliation list. Followup: Follow up with primary care physician in 1 week. Follow up with GI, Dr. Mendes, in 2 week s. Return to ER for worsening condition. Diet: Diabetic. Activity: As tolerated. Physical Examination: General: Awake, alert, oriented x3. No acute distress. Obese female. CV: S1, S2. No murmurs. Respiratory: Moving air well bilaterally. No wheezing. Gastrointestinal: Abdomen is soft, nontender, nondistended. Positive bowel sounds. Extremities: No clubbing, cyanosis, or edema. Neurologic: Nonfocal. Total time spent discharging the patient was 35 minutes. /NEAL Voice ID: [id number] Report ID: [id number]
== END 2018-09-30 12:38 | disposition home or self-care (01) | DRG 439 ==
LOC: ER 14:44 → ERHOLD 18:29 → 2ND 20:30
PROVIDERS: ADMIT Family Medicine; ATTEND Family Medicine
PROC: 0DB78ZX Excision of Stomach, Pylorus, Via Natural or Artificial Opening Endoscopic, Diagnostic (ICD-10-PCS; 2018-09-29)
PROC: 0DB68ZX Excision of Stomach, Via Natural or Artificial Opening Endoscopic, Diagnostic (ICD-10-PCS; principal; 2018-09-29 13:00)
DX: K85.00 Idiopathic acute pancreatitis without necrosis or infection (principal); B37.0 Candidal stomatitis; K25.3 Acute gastric ulcer without hemorrhage or perforation; E87.6 Hypokalemia; E11.43 Type 2 diabetes mellitus with diabetic autonomic (poly)neuropathy; E11.65 Type 2 diabetes mellitus with hyperglycemia; K31.84 Gastroparesis; Z79.4 Long term (current) use of insulin; E66.9 Obesity, unspecified; Z68.31 Body mass index [BMI] 31.0-31.9, adult; R63.4 Abnormal weight loss; Z91.128 Patient's intentional underdosing of medication regimen for other reason; I10 Essential (primary) hypertension; K29.70 Gastritis, unspecified, without bleeding; K20.9 Esophagitis, unspecified; K29.80 Duodenitis without bleeding; R11.2 Nausea with vomiting, unspecified; K44.9 Diaphragmatic hernia without obstruction or gangrene; Z87.891 Personal history of nicotine dependence; K76.0 Fatty (change of) liver, not elsewhere classified
CPT/HCPCS: 36415; 71046; 74177; 74181; 76705; 80048; 80053; 80076; 81003; 81015; 81025; 82962; 82977; 83036; 83690; 83735; 84132; 84478; 85025; 86301; 88305; 88312; 93005; 96361; 96374; 96375; 99285; G0008; J0360; J1650; J2405; J2550; J2704; J2765; J3475; J7030; Q2035; Q9967

== ENCOUNTER 2018-10-19 22:58 | Emergency (ER) | payer SELFPAY ==
[2018-10-19] MEDS ORDERED: METOCLOPRAMIDE 10 MG/2mL INJ ONE (23:36)
[2018-10-19] MEDS ORDERED: NA CHLORIDE 0.9% 1,000 ML ONE (23:36)
[2018-10-19 23:37] LABS: Absolute Lymphocytes (CBC) 2.8 K/uL (0.7-4.9); Absolute Monocytes 0.5 K/uL (0.1-1.3); Basophils % 0.6 % (0-1.3); Eosinophils % 2.7 % (0-4.4); Hematocrit 41.9 % (36.0-45.0); Lymphocytes % 29.3 % (15.3-44.8); Monocytes % 4.9 % (3.3-12.3); RBC Red Blood Cell Count 5.01 M/uL (3.86-4.86)
[2018-10-19 23:48] LABS: ALT/SGPT 60 U/L (12-78); AST/SGOT 39 U/L (15-37); Albumin 3.7 g/dL (3.4-5.0); Alkaline Phosphatase 189 U/L (45-117); BUN Blood Urea Nitrogen 17 mg/dL (7-18); Bicarbonate 24 mmol/L (21-32); Bilirubin Direct 0.2 mg/dL (0-0.2); Bilirubin Total 0.7 mg/dL (0.2-1.0); Glucose Level 258 mg/dL (74-106); Lipase 97 U/L (73-393); Potassium 3.6 mmol/L (3.5-5.1); Protein, Total 8.4 g/dL (6.4-8.2); Sodium Level 136 mmol/L (136-145)
--- NOTE | 2018-10-20 00:16 | ER ---
Nurse's Notes [facility] Name: Sunita Donoheu Age: 52 yrs Sex: Female : 1965 Arrival Date: 10/19/2018 Time: 23:01 Bed 5 Private MD: Diagnosis: Gastroparesis;Nausea and vomiting Presentation: 10/19 23:01 Presenting complaint: EMS states: Abdominal pain since Sunday, with N/V, diarrhea that lp1 began yesterday; Patient states diagnosed with gastroparesis and released from hospital on 09/30/18. Transition of care: patient was not received from another setting of care. Onset of symptoms was October 19, 2018. Risk Assessment: Do you want to hurt yourself or someone else? Patient reports no desire to harm self or others. Initial Sepsis Screen: Does the patient meet any 2 criteria? No. Patient's initial sepsis screen is negative. Does the patient have a suspected source of infection? No. Patient's initial sepsis screen is negative. Care prior to arrival: None. 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 - Social history:: Smoking status: Patient/guardian denies using tobacco. - Ebola Screening: : No symptoms or risks identified at this time. Screenin:07 Abuse screen: Denies threats or abuse. Denies injuries from another. Nutritional lp1 screening: No deficits noted. Tuberculosis screening: No symptoms or risk factors identified. Fall Risk None identified. Assessment: 23:10 General: Appears uncomfortable, Behavior is calm, cooperative. Pain: Complains of pain ed1 in left upper quadrant Pain does not radiate. Pain currently is 8 out of 10 on a pain scale. Pain began 2-3 days ago. Is continuous. Neuro: Level of Consciousness is awake, alert, obeys commands, Oriented to person, place, time, situation. Cardiovascular: Denies chest pain, Heart tones S1 S2 present. Respiratory: Airway is patent Respiratory effort is even, unlabored, Respiratory pattern is regular, symmetrical, Breath sounds are clear bilaterally. GI: Abdomen is non-distended, Bowel sounds present X 4 quads. Abd is soft and non tender X 4 quads. Reports diarrhea, nausea, vomiting. : No signs and/or symptoms were reported regarding the genitourinary system. EENT: No signs and/or symptoms were reported regarding the EENT system. Derm: Skin is intact, is healthy with good turgor, Skin is dry, Skin is normal, Skin temperature is warm. Musculoskeletal: Circulation, motion, and sensation intact. 10/20 00:07 Reassessment: Patient appears in no apparent distress at this time. No changes from ed1 previously documented assessment. Patient and/or family updated on plan of care and expected duration. Pain level reassessed. Patient is alert, oriented x 3, equal unlabored respirations, skin warm/dry/pink. Patient states symptoms have not improved. Vital Signs: 10/19 23:05 BP 150 / 88; Pulse 88; Resp 18; Temp 97(TE); Pulse Ox 98% on R/A; Weight 82.55 kg; lp1 Height 5 ft. 4 in. (162.56 cm); Pain 8/10; 10/20 00:07 BP 161 / 82; Pulse 76; Resp 17; Pulse Ox 100% on R/A; Pain 8/10; ed1 10/19 23:05 Body Mass Index 31.24 (82.55 kg, 162.56 cm) lp1 ED Course: 10/19 23:01 Patient arrived in ED. ds1 23:04 Gilson Prescott PA is PHCP. jr8 23:04 Toan Esparza MD is Attending Physician. jr8 23:04 Aurelia Charles RN is Primary Nurse. ed1 23:04 Initial lab(s) drawn, by me, held in ED. Inserted saline lock: 20 gauge in right ed1 forearm, using aseptic technique. Blood collected. 23:05 Triage completed. lp1 23:05 Arm band placed on left wrist. lp1 23:08 Patient has correct armband on for positive identification. Placed in gown. Bed in low lp1 position. Pulse ox on. NIBP on. 02 00:14 Toñito Mendes MD is Referral Physician. jr8 00:22 No provider procedures requiring assistance completed. IV discontinued, intact, ed1 bleeding controlled, No redness/swelling at site. Pressure dressing applied. Administered Medications: 10/19 23:40 Drug: NS 0.9% 1000 ml Route: IV; Rate: 1000 ml; Site: right forearm; ed1 10/20 00:23 Follow up: IV Status: Completed infusion; IV Intake: 1000ml ed1 10/19 23:40 Drug: Reglan 10 mg Route: IVP; Site: right forearm; ed1 10/20 00:23 Follow up: Response: No adverse reaction; Nausea is decreased ed1 Point of Care Testing: Blood Glucose: 10/19 23:05 Blood Glucose: 265 mg/dL; lp1 Ranges: Intake: 10/20 00:23 IV: 1000ml; Total: 1000ml. ed1 Outcome: 00:14 Discharge ordered by . jr8 00:22 Discharged to home ambulatory. ed1 00:22 Condition: good 00:22 Discharge instructions given to patient, Instructed on discharge instructions, follow up and referral plans. medication usage, Demonstrated understanding of instructions, follow-up care, medications, Prescriptions given X 1. 00:24 Patient left the ED. ed1 Signatures: Marilin Hudson ds1 Aurelia Charles, RN RN ed1 Ingrid Leon RN RN lp1 Gilson Prescott PA PA jr8
--- NOTE | 2018-10-20 00:17 | EDPHYS ---
Physician Documentation [facility] Name: Sunita Donohue Age: 52 yrs Sex: Female : 1965 Arrival Date: 10/19/2018 Time: 23:01 Bed 5 Private MD: ED Physician Toan Esparza HPI: 10/19 23:19 This 52 yrs old Female presents to ER via EMS with complaints of Abdominal jr8 Pain. 23:19 The patient presents with abdominal pain in the upper abdomen. Onset: The jr8 symptoms/episode began/occurred gradually, 1 week(s) ago, and became worse and became persistent. The symptoms do not radiate. Associated signs and symptoms: Pertinent positives: nausea, vomiting, and diarrhea. The symptoms are described as crampy. Modifying factors: The symptoms are alleviated by nothing, the symptoms are aggravated by food. Severity of pain: At its worst the pain was moderate in the emergency department the pain is unchanged. It is unknown whether or not the patient has had similar symptoms in the past. The patient has been recently seen by a physician:. Patient had been d/c'd from hospital about a month ago for similar symptoms. Diagnosed with gastroparesis and pancreatitis. Started to have similar symptoms again this week that are not going away. Now unable to tolerate fluids and food . 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 - Social history:: Smoking status: Patient/guardian denies using tobacco. - Ebola Screening: : No symptoms or risks identified at this time. ROS: 23:19 Eyes: Negative for injury, pain, redness, and discharge, ENT: Negative for injury, jr8 pain, and discharge, Neck: Negative for injury, pain, and swelling, Cardiovascular: Negative for chest pain, palpitations, and edema, Respiratory: Negative for shortness of breath, cough, wheezing, and pleuritic chest pain, Back: Negative for injury and pain, MS/Extremity: Negative for injury and deformity, Skin: Negative for injury, rash, and discoloration, Neuro: Negative for headache, weakness, numbness, tingling, and seizure. 23:19 Abdomen/GI: Positive for abdominal pain, nausea, vomiting, and diarrhea, Negative for abdominal distension, anorexia, dysphagia, hematemesis, black/tarry stool, rectal pain, rectal bleeding, bowel incontinence, flatulence. Exam: 23:19 Eyes: Pupils equal round and reactive to light, extra-ocular motions intact. Lids and jr8 lashes normal. Conjunctiva and sclera are non-icteric and not injected. Cornea within normal limits. Periorbital areas with no swelling, redness, or edema. ENT: Nares patent. No nasal discharge, no septal abnormalities noted. Tympanic membranes are normal and external auditory canals are clear. Oropharynx with no redness, swelling, or masses, exudates, or evidence of obstruction, uvula midline. Mucous membranes moist. Neck: Trachea midline, no thyromegaly or masses palpated, and no cervical lymphadenopathy. Supple, full range of motion without nuchal rigidity, or vertebral point tenderness. No Meningismus. Cardiovascular: Regular rate and rhythm with a normal S1 and S2. No gallops, murmurs, or rubs. Normal PMI, no JVD. No pulse deficits. Respiratory: Lungs have equal breath sounds bilaterally, clear to auscultation and percussion. No rales, rhonchi or wheezes noted. No increased work of breathing, no retractions or nasal flaring. Back: No spinal tenderness. No costovertebral tenderness. Full range of motion. Skin: Warm, dry with normal turgor. Normal color with no rashes, no lesions, and no evidence of cellulitis. MS/ Extremity: Pulses equal, no cyanosis. Neurovascular intact. Full, normal range of motion. Neuro: Awake and alert, GCS 15, oriented to person, place, time, and situation. Cranial nerves II-XII grossly intact. Motor strength 5/5 in all extremities. Sensory grossly intact. Cerebellar exam normal. Normal gait. 23:19 Abdomen/GI: Inspection: abdomen appears normal, Bowel sounds: active, all quadrants, Palpation: soft, in all quadrants, mild abdominal tenderness, in the left upper quadrant, mass, is not appreciated, rebound tenderness, is not appreciated, voluntary guarding, is not appreciated, involuntary guarding, is not appreciated, no appreciated organomegaly, Indicators: McBurney's point is not tender, Kumar's sign is negative, Rovsing's sign is negative, Liver: tenderness, is not appreciated. Vital Signs: 23:05 BP 150 / 88; Pulse 88; Resp 18; Temp 97(TE); Pulse Ox 98% on R/A; Weight 82.55 kg; lp1 Height 5 ft. 4 in. (162.56 cm); Pain 8/10; 10/20 00:07 BP 161 / 82; Pulse 76; Resp 17; Pulse Ox 100% on R/A; Pain 8/10; ed1 10/19 23:05 Body Mass Index 31.24 (82.55 kg, 162.56 cm) lp1 MDM: 10/19 23:04 Patient medically screened. jr8 10/20 00:13 Data reviewed: vital signs, nurses notes, lab test result(s), and as a result, I will jr8 discharge patient. Data interpreted: Pulse oximetry: on room air is 100 %. Interpretation: normal. Counseling: I had a detailed discussion with the patient and/or guardian regarding: the historical points, exam findings, and any diagnostic results supporting the discharge/admit diagnosis, lab results, the need for outpatient follow up, a band nailer, to return to the emergency department if symptoms worsen or persist or if there are any questions or concerns that arise at home. Response to treatment: the patient's symptoms have resolved after treatment, patient is well hydrated. ED course: No vomiting while in ED . 10/19 23:15 Order name: Basic Metabolic Panel; Complete Time: 23:49 jr8 10/19 23:15 Order name: CBC with Diff; Complete Time: 23:49 jr8 10/19 23:15 Order name: Creatinine for Radiology; Complete Time: 23:49 jr8 10/19 23:15 Order name: Hepatic Function; Complete Time: 23:49 jr8 10/19 23:15 Order name: Lipase; Complete Time: 23:49 jr8 10/19 23:15 Order name: IV Saline Lock; Complete Time: 23:17 jr8 10/19 23:15 Order name: Labs collected and sent; Complete Time: 23: Administered Medications: 10/19 23:40 Drug: NS 0.9% 1000 ml Route: IV; Rate: 1000 ml; Site: right forearm; ed1 10/20 00:23 Follow up: IV Status: Completed infusion; IV Intake: 1000ml ed1 10/19 23:40 Drug: Reglan 10 mg Route: IVP; Site: right forearm; ed1 10/20 00:23 Follow up: Response: No adverse reaction; Nausea is decreased ed1 Point of Care Testing: Blood Glucose: 10/19 23:05 Blood Glucose: 265 mg/dL; lp1 Ranges: Critical Glucose Levels:Adult <50 mg/dl or >400 mg/dl <40 mg/dl or >180 mg/dl Disposition: 10/20 01:39 Co-signature as Attending Physician, Toan Esparza MD I agree with the assessment and kdr plan of care. Disposition: 10/20/18 00:14 Discharged to Home. Impression: Gastroparesis, Nausea and vomiting. - Condition is Stable. - Discharge Instructions: Nausea and Vomiting, Adult, Gastroparesis. - Prescriptions for Reglan 10 mg Oral Tablet - take 1 tablet by ORAL route every 6 hours take 30 minutes before meals and at bedtime; 20 tablet. - Medication Reconciliation Form, Thank You Letter, Antibiotic Education, Prescription Opioid Use form. - Follow up: Toñito Mendes MD; When: 2 - 3 days; Reason: Recheck today's complaints, Continuance of care, Re-evaluation by your physician. - Problem is new. - Symptoms have improved. Signatures: Dispatcher [employer] EDOR Toan Esparza MD MD kdr Aurelia Charles RN RN ed1 Ingrid Leon RN RN lp1 Gilson Prescott PA PA jr8 Corrections: (The following items were deleted from the chart) 00:24 00:14 10/20/2018 00:14 Discharged to Home. Impression: Gastroparesis; Nausea and ed1 vomiting. Condition is Stable. Forms are Medication Reconciliation Form, Thank You Letter, Antibiotic Education, Prescription Opioid Use. Follow up: Toñito Mendes; When: 2 - 3 days; Reason: Recheck today's complaints, Continuance of care, Re-evaluation by your physician. Problem is new. Symptoms have improved. jr8
== END 2018-10-20 00:24 | disposition home or self-care (01) ==
LOC: ER 22:58
DX: K31.84 Gastroparesis (principal); E11.43 Type 2 diabetes mellitus with diabetic autonomic (poly)neuropathy; I10 Essential (primary) hypertension
CPT/HCPCS: 36415; 80048; 80076; 82962; 83690; 85025; 96361; 96374; 99284; J2765; J7030

== ENCOUNTER 2018-12-14 11:47 | Emergency (ER) | payer SELFPAY ==
--- OUTSIDE RECORDS SUMMARY | 2018-12-14 11:48 | XMS REPORT ---
:1965 [facility] Address [address] [place] [address] [address] [place] [address] Care Team Providers Name Role Phone Unavailable Unavailable Unavailable Problems This patient has no known problems. Allergies, Adverse Reactions, Alerts This patient has no known allergies or adverse reactions. Medications This patient has no known medications.
[2018-12-14 12:18] LABS: Absolute Lymphocytes (CBC) 2.2 K/uL (0.7-4.9); Absolute Monocytes 0.5 K/uL (0.1-1.3); Absolute Neutrophil 10.2 K/uL (1.8-8.0); Basophils % 0.6 % (0-1.3); Eosinophils % 0.5 % (0-4.4); Lymphocytes % 16.7 % (15.3-44.8); MPV 9.1 fL (7.6-11.3); Monocytes % 3.7 % (3.3-12.3); RBC Red Blood Cell Count 5.15 M/uL (3.86-4.86)
[2018-12-14 12:35] LABS: Albumin 4.1 g/dL (3.4-5.0); Bilirubin Direct 0.2 mg/dL (0-0.2); Bilirubin Total 0.9 mg/dL (0.2-1.0); Protein, Total 9.2 g/dL (6.4-8.2)
[2018-12-14] MEDS ORDERED: FENTANYL CITR 100 MCG/2 ML ONE (12:51)
[2018-12-14] MEDS ORDERED: PROMETHAZINE 25 MG/ML VIAL ONE (12:51)
[2018-12-14] MEDS ORDERED: NA CHLORIDE 0.9% 1,000 ML ONE (12:51)
--- NOTE | 2018-12-14 13:24 | RAD REPORT ---
EXAM DESCRIPTION: US - Abdomen Exam Limited - 12/14/2018 12:53 pm CLINICAL HISTORY: Abdominal pain. COMPARISON: September 2018 FINDINGS: The gallbladder wall is not thickened. A gallstone is not seen. The biliary tree is normal caliber. Fatty liver IMPRESSION: Unremarkable gallbladder ultrasound.
--- NOTE | 2018-12-14 14:00 | RAD REPORT ---
EXAM DESCRIPTION: CT - Stone Protocol - 12/14/2018 1:49 pm CLINICAL HISTORY: Abdominal pain. Vomiting COMPARISON: September 2018 TECHNIQUE: Computed axial tomography of the abdomen pelvis was obtained without oral or IV contrast. Lack of IV and oral contrast limits evaluation of solid organs, bowel, and vessels. Coronal reformat delaney images were obtained and reviewed. All CT scans are performed using dose optimization technique as appropriate and may include automated exposure control or mA/KV adjustment according to patient size. FINDINGS: 1 millimeter left renal calculus. No hydronephrosis. A right renal calculus is not seen. U reteral calculus is not visualized. A bladder calculus is not noted. Mild right renal cortical thinni ng may be secondary prior inflammation Prominent caudate lobe of the liver may indicate chronic disease. Spleen, pancreas and adrenals appear grossly normal There is no evidence of diverticulitis. The appendix appears normal Small umbilical hernia IMPRESSION: Tiny nonobstructing left renal calculus
--- NOTE | 2018-12-14 14:32 | ER ---
Nurse's Notes [facility] Name: Sunita Donohue Age: 53 yrs Sex: Female : 1965 Arrival Date: 12/14/2018 Time: 11:48 Bed 7 Private MD: Diagnosis: Urinary tract infection, site not specified;Unspecified abdominal pain;Nausea Presentation: 12/14 11:48 Presenting complaint: Patient states: nausea/vomiting and epigastric pain that began aa5 . Pt states "I haven't had diarrhea since Sunday". 11:48 Transition of care: patient was not received from another setting of care. Onset of aa5 symptoms was December 2018. Risk Assessment: Do you want to hurt yourself or someone else? Patient reports no desire to harm self or others. Initial Sepsis Screen: Does the patient meet any 2 criteria? No. Patient's initial sepsis screen is negative. Does the patient have a suspected source of infection? No. Patient's initial sepsis screen is negative. Care prior to arrival: Glucose check: 220. 11:48 Method Of Arrival: EMS: [facility] aa5 11:48 Acuity: RIKI 3 aa5 Triage Assessment: 11:50 General: Appears in no apparent distress. uncomfortable, obese, Behavior is bp cooperative, appropriate for age, anxious. GI: Abdomen is non-distended. 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 - Ebola Screening: : No symptoms or risks identified at this time. - Social history:: Smoking status: Patient/guardian denies using tobacco. Screenin:54 Abuse screen: Denies threats or abuse. Nutritional screening: No deficits noted. aa5 Tuberculosis screening: No symptoms or risk factors identified. Fall Risk None identified. Assessment: 11:30 General: Appears uncomfortable, Behavior is calm, cooperative. Pain: Complains of pain aa5 in epigastric area Pain does not radiate. Pain currently is 9 out of 10 on a pain scale. Quality of pain is described as crampy, sharp, Pain began 2-3 days ago. Is continuous. Neuro: Level of Consciousness is awake, alert, obeys commands, Oriented to person, place, time, situation. Cardiovascular: Heart tones S1 S2 present Rhythm is regular. Respiratory: Airway is patent Respiratory effort is even, unlabored, Respiratory pattern is regular, symmetrical, Breath sounds are clear bilaterally. GI: Abdomen is round non-distended, Bowel sounds present X 4 quads. Abd is soft X 4 quads Abd is non tender in right lower quadrant and left lower quadrant Abdomen is tender to palpation in epigastric area, right upper quadrant and left upper quadrant Reports nausea, vomiting. : No signs and/or symptoms were reported regarding the genitourinary system. EENT: No signs and/or symptoms were reported regarding the EENT system. Derm: Skin is pink, warm \\T\\ dry. Musculoskeletal: Range of motion: intact in all extremities. 12:40 Reassessment: Patient is alert, oriented x 3, equal unlabored respirations, skin aa5 warm/dry/pink. US at bedside . 13:15 Reassessment: Patient and/or family updated on plan of care and expected duration. Pain aa5 level reassessed. Patient is alert, oriented x 3, equal unlabored respirations, skin warm/dry/pink. 14:00 Reassessment: Patient and/or family updated on plan of care and expected duration. Pain aa5 level reassessed. Patient is alert, oriented x 3, equal unlabored respirations, skin warm/dry/pink. Pain: Pain currently is 6 out of 10 on a pain scale. 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 . 15:14 Reassessment: PT D/C HOME VIA W/C, DX WITH UTI. bp Vital Signs: 11:48 BP 167 / 97; Pulse 93; Resp 16 S; Temp 98.5(O); Pulse Ox 98% on R/A; aa5 12:52 BP 148 / 88; Pulse 87; Resp 20 S; Pulse Ox 98% on R/A; aa5 13:15 BP 164 / 82; Pulse 88; Resp 16 S; Pulse Ox 97% on R/A; aa5 14:00 BP 174 / 88; Pulse 89; Resp 16 S; Pulse Ox 97% on R/A; aa5 15:00 BP 167 / 88; Pulse 87; Resp 16; Pulse Ox 98% ; bp ED Course: 11:48 Patient arrived in ED. aa5 11:48 Arm band placed on Patient placed in an exam room, on a stretcher. aa5 11:48 Patient has correct armband on for positive identification. Placed in gown. Bed in low aa5 position. Call light in reach. Side rails up X2. 11:50 Triage completed. aa5 11:55 Peir Peters FNP-C is PHCP. snw 11:55 Zack Velásquez MD is Attending Physician. snw 12:00 Rey Dodd RN is Primary Nurse. bp 12:00 Initial lab(s) drawn, by me, sent to lab. Inserted saline lock: 20 gauge in right aa5 antecubital area, using aseptic technique. Blood collected. 12:03 Primary Nurse role handed off by Rey Dodd RN aa5 12:03 Carmela Jane RN is Primary Nurse. aa5 12:03 Carmela Jane RN is Primary Nurse. aa5 12:52 Ultrasound completed. Patient tolerated well. sg3 12:54 US Abdomen Limited In Process Unspecified. EDMS 13:36 CT completed. Patient tolerated procedure well. Patient moved to CT. Patient moved back mw3 from CT. 13:50 CT Stone Protocol In Process Unspecified. EDMS 14:20 Straight cath inserted, using sterile technique, 16 Fr. Specimen obtained. Returned aa5 cloudy urine. Patient tolerated well. 15:14 No provider procedures requiring assistance completed. IV discontinued, intact, bp bleeding controlled, No redness/swelling at site. Pressure dressing applied. Administered Medications: 12:40 Drug: NS 0.9% 1000 ml Route: IV; Rate: 125 ml/hr; Site: right antecubital; aa5 14:30 Follow up: IV Status: Infusion continued aa5 12:40 Drug: Phenergan 6.25 mg Route: IVP; Site: right antecubital; aa5 12:50 Follow up: Response: No adverse reaction aa5 12:42 Drug: fentaNYL (PF) 25 mcg Route: IVP; Site: right antecubital; aa5 12:50 Follow up: Response: No adverse reaction aa5 14:30 Drug: Rocephin 1 grams Route: IV; Rate: calculated rate; Site: right antecubital; aa5 15:17 Follow up: IV Status: Completed infusion; IV Intake: 20ml bp Intake: 12:00 IV: 1000ml; Total: 1000ml. bp 15:17 IV: 20ml; Total: 1020ml. bp Output: 14:20 Urine: 110ml (Straight Cath); Total: 110ml. aa5 Outcome: 14:32 Discharge ordered by . matt 15:16 Discharged to home via wheelchair, with family. bp 15:16 Condition: stable 15:16 Discharge instructions given to patient, Instructed on discharge instructions, follow up and referral plans. medication usage, Demonstrated understanding of instructions, follow-up care, medications, Prescriptions given X 2. 15:18 Patient left the ED. bp Signatures: Dispatcher [employer] EDMS Peri Peters, COMMUNITY SERVICE PATROL OFFICER-C COMMUNITY SERVICE PATROL OFFICER-Csnw Carmela Jane RN RN aa5 Rey Dodd RN RN bp Torie Merrill sg3 Nathaly Albrecht mw3 Corrections: (The following items were deleted from the chart) 11:50 11:48 Care prior to arrival: None. aa5 aa5
--- NOTE | 2018-12-14 14:32 | EDPHYS ---
Physician Documentation [facility] Name: Sunita Donohue Age: 53 yrs Sex: Female : 1965 Arrival Date: 12/14/2018 Time: 11:48 Bed 7 Private MD: ED Physician Zack Velásquez HPI: 12/14 12:38 This 53 yrs old Female presents to ER via EMS with complaints of snw Nausea/Vomiting, Abdominal Pain. 12:38 The patient presents to the emergency department with nausea, vomiting. Onset: The snw symptoms/episode began/occurred gradually, today. Possible causes: unknown. Associated signs and symptoms: Pertinent positives: nausea, vomiting. Severity of symptoms: At their worst the symptoms were mild moderate. The patient has experienced similar episodes in the past. It is unknown whether or not the patient has recently seen a physician. 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 - Ebola Screening: : No symptoms or risks identified at this time. - Social history:: Smoking status: Patient/guardian denies using tobacco. ROS: 12:37 Constitutional: Negative for fever, chills, and weight loss, Eyes: Negative for injury, snw pain, redness, and discharge, ENT: Negative for injury, pain, and discharge, Neck: Negative for injury, pain, and swelling, Cardiovascular: Negative for chest pain, palpitations, and edema, Respiratory: Negative for shortness of breath, cough, wheezing, and pleuritic chest pain, Back: Negative for injury and pain, : Negative for injury, bleeding, discharge, and swelling, MS/Extremity: Negative for injury and deformity, Skin: Negative for injury, rash, and discoloration, Neuro: Negative for headache, weakness, numbness, tingling, and seizure. 12:37 Abdomen/GI: Positive for abdominal pain, nausea. Exam: 12:36 Constitutional: This is a well developed, well nourished patient who is awake, alert, snw and in no acute distress. Head/Face: Normocephalic, atraumatic. Eyes: Pupils equal round and reactive to light, extra-ocular motions intact. Lids and lashes normal. Conjunctiva and sclera are non-icteric and not injected. Cornea within normal limits. Periorbital areas with no swelling, redness, or edema. ENT: Nares patent. No nasal discharge, no septal abnormalities noted. Tympanic membranes are normal and external auditory canals are clear. Oropharynx with no redness, swelling, or masses, exudates, or evidence of obstruction, uvula midline. Mucous membranes moist. Neck: Trachea midline, no thyromegaly or masses palpated, and no cervical lymphadenopathy. Supple, full range of motion without nuchal rigidity, or vertebral point tenderness. No Meningismus. Chest/axilla: Normal chest wall appearance and motion. Nontender with no deformity. No lesions are appreciated. Cardiovascular: Regular rate and rhythm with a normal S1 and S2. No gallops, murmurs, or rubs. Normal PMI, no JVD. No pulse deficits. Respiratory: Lungs have equal breath sounds bilaterally, clear to auscultation and percussion. No rales, rhonchi or wheezes noted. No increased work of breathing, no retractions or nasal flaring. Back: No spinal tenderness. No costovertebral tenderness. Full range of motion. Skin: Warm, dry with normal turgor. Normal color with no rashes, no lesions, and no evidence of cellulitis. MS/ Extremity: Pulses equal, no cyanosis. Neurovascular intact. Full, normal range of motion. Neuro: Awake and alert, GCS 15, oriented to person, place, time, and situation. Cranial nerves II-XII grossly intact. Motor strength 5/5 in all extremities. Sensory grossly intact. Cerebellar exam normal. Normal gait. 12:36 Abdomen/GI: Inspection: abdomen appears normal, Bowel sounds: normal, Palpation: soft, in all quadrants, moderate abdominal tenderness, in the epigastric area. Vital Signs: 11:48 BP 167 / 97; Pulse 93; Resp 16 S; Temp 98.5(O); Pulse Ox 98% on R/A; aa5 12:52 BP 148 / 88; Pulse 87; Resp 20 S; Pulse Ox 98% on R/A; aa5 13:15 BP 164 / 82; Pulse 88; Resp 16 S; Pulse Ox 97% on R/A; aa5 14:00 BP 174 / 88; Pulse 89; Resp 16 S; Pulse Ox 97% on R/A; aa5 15:00 BP 167 / 88; Pulse 87; Resp 16; Pulse Ox 98% ; bp MDM: 11:55 Patient medically screened. snw 14:40 Data reviewed: vital signs, nurses notes. Data interpreted: Pulse oximetry: on room air snw is 97 %. Interpretation: normal. Counseling: I had a detailed discussion with the patient and/or guardian regarding: the historical points, exam findings, and any diagnostic results supporting the discharge/admit diagnosis, the presence of at least one elevated blood pressure reading (>120/80) during this emergency department visit, lab results, radiology results, the need for outpatient follow up, to return to the emergency department if symptoms worsen or persist or if there are any questions or concerns that arise at home. Special discussion: Based on the patient's Hx, exam, and Dx evaluation, there is no indication for emergent surgery or inpatient Tx. It is understood by the patient/guardian that if the Sx's persist or worsen they need to return immediately for re-evaluation. I have referred the patient to see his PCP for further evaluation of high blood pressure. Based on the history and exam findings, there is no indication for further emergent testing or inpatient evaluation. I discussed with the patient/guardian the need to see the primary care provider for further evaluation of the symptoms. 12/14 11:57 Order name: Basic Metabolic Panel; Complete Time: 12:48 snw 12/14 11:57 Order name: CBC with Diff; Complete Time: 12:26 w 12/14 11:57 Order name: Creatinine for Radiology; Complete Time: 12:36 snw 12/14 11:57 Order name: Hepatic Function; Complete Time: 12:48 snw 12/14 11:57 Order name: Lipase; Complete Time: 12:48 snw 12/14 11:57 Order name: Urine Culture w 12/14 11:57 Order name: Urine Microscopic Only; Complete Time: 14:59 snw 12/14 11:57 Order name: US Abdomen Limited; Complete Time: 13:25 snw 12/14 13:27 Order name: CT Stone Protocol; Complete Time: 14:02 w 12/14 14:23 Order name: Urine Dipstick--Ancillary (enter results); Complete Time: 14:50 eb 12/14 11:57 Order name: IV Saline Lock; Complete Time: 12:02 snw 12/14 11:57 Order name: Labs collected and sent; Complete Time: 12:02 w 12/14 11:57 Order name: Urine Dipstick-Ancillary (obtain specimen); Complete Time: 14:22 snw 12/14 14:22 Order name: Straight Cath - Urine; Complete Time: 14:22 ss Administered Medications: 12:40 Drug: NS 0.9% 1000 ml Route: IV; Rate: 125 ml/hr; Site: right antecubital; aa5 14:30 Follow up: IV Status: Infusion continued aa5 12:40 Drug: Phenergan 6.25 mg Route: IVP; Site: right antecubital; aa5 12:50 Follow up: Response: No adverse reaction aa5 12:42 Drug: fentaNYL (PF) 25 mcg Route: IVP; Site: right antecubital; aa5 12:50 Follow up: Response: No adverse reaction aa5 14:30 Drug: Rocephin 1 grams Route: IV; Rate: calculated rate; Site: right antecubital; aa5 15:17 Follow up: IV Status: Completed infusion; IV Intake: 20ml bp Disposition: 12/14/18 14:32 Discharged to Home. Impression: Urinary tract infection, site not specified, Unspecified abdominal pain, Nausea. - Condition is Stable. - Discharge Instructions: Abdominal Pain, Adult, Hypertension, Nausea, Adult, Urinary Tract Infection, Adult, Rehydration, Adult. - Prescriptions for Macrobid 100 mg Oral Capsule - take 1 capsule by ORAL route every 12 hours for 10 days; 20 capsule. promethazine 25 mg Oral Tablet - take 1 tablet by ORAL route every 6 hours As needed; 20 tablet. - Work release form, Medication Reconciliation Form, Thank You Letter, Antibiotic Education, Prescription Opioid Use form. - Follow up: Private Physician; When: 2 - 3 days; Reason: Recheck today's complaints, Continuance of care, Re-evaluation by your physician. Follow up: Emergency Department; When: As needed; Reason: Worsening of condition. Addendum: 12/16/2018 08:02 Co-signature as Attending Physician, Zack Velásquez MD Available for consultation at p s1 all times. . Signatures: Dispatcher [employer] EDMS Peri Peters, FLORIST'S DECORATOR-C FLORIST'S DECORATOR-Csnw Carmela Jane, RN RN aa5 Amanda Delgado RN RN ss Rey Dodd RN RN bp Zack Velásquez MD MD ps1 Corrections: (The following items were deleted from the chart) 12/14 15:18 14:32 12/14/2018 14:32 Discharged to Home. Impression: Urinary tract infection, site bp not specified; Unspecified abdominal pain; Nausea. Condition is Stable. Forms are Medication Reconciliation Form, Thank You Letter, Antibiotic Education, Prescription Opioid Use. Follow up: Private Physician; When: 2 - 3 days; Reason: Recheck today's complaints, Continuance of care, Re-evaluation by your physician. Follow up: Emergency Department; When: As needed; Reason: Worsening of condition. snw
[2018-12-14] MEDS ORDERED: CEFTRIAXONE/SWI 1gm 1 GM/10 ML SYR ONE (14:35)
[2018-12-14 14:49] LABS: Urine Blood 2+ (NEG); Urine Glucose NEGATIVE (NEG); Urine Protein 2+ (NEG); Urine Specific Gravity 1.025 (1.005-1.030); Urine pH 5.5 (5.0-7.0)
[2018-12-14 14:53] LABS: Urine Bacteria LOADED /HPF (<20); Urine RBC <5 /HPF (NONE SEEN)
[2018-12-14 14:54] LABS: Urine Culture Reflex Order NOT NEEDED
--- NOTE | 2018-12-16 05:56 | EKG ---
Test Date: 2018-12-14 Test Time: 11:59:55 Patent Solicitor: GISELA MEASUREMENT RESULTS: Intervals: Rate: 87 HI: 140 QRSD: 80 QT: 386 QTc: 464 [place]: P: 62 HI: 140 QRS: 47 T: 14 INTERPRETIVE STATEMENTS: Normal sinus rhythm Normal ECG Compared to ECG 09/24/2018 15:06:31 No significant changes Electronically Signed On 12-16-18 05:56:12 CDT by Kendall Dillon
== END 2018-12-14 15:18 | disposition home or self-care (01) ==
LOC: ER 11:47
DX: R11.2 Nausea with vomiting, unspecified (principal); N39.0 Urinary tract infection, site not specified; I11.0 Hypertensive heart disease with heart failure; I50.9 Heart failure, unspecified; E11.9 Type 2 diabetes mellitus without complications; Z79.4 Long term (current) use of insulin
CPT/HCPCS: 36415; 51702; 74176; 76377; 76705; 80048; 80076; 81003; 81015; 83690; 85025; 87077; 87086; 87088; 87186; 93005; 96361; 96365; 96375; 99284; J0696; J2550; J3010; J7030; Q9967

== ENCOUNTER 2021-09-05 14:05 | Emergency (ER) | payer OTHER, SELFPAY ==
[2021-09-05 16:10] LABS: SARS-COV-2 RT PCR NEGATIVE (NEGATIVE)
--- NOTE | 2021-09-05 16:17 | EDPHYS ---
Physician Documentation [facility] Name: Sunita Donohue Age: 55 yrs Sex: Female : 1965 Arrival Date: 09/05/2021 Time: 14:06 Bed Waiting Private MD: JOSE C Physician Sanchez Mclean HPI: 09/05 15:32 This 55 yrs old Female presents to ER via Ambulatory with complaints of r/o covid. kb 15:32 The patient or guardian reports cough, that is intermittent, described as mild. Onset: kb The symptoms/episode began/occurred 2 day(s) ago. Severity of symptoms: At their worst the symptoms were mild, in the emergency department the symptoms are unchanged. Modifying factors: The symptoms are alleviated by nothing, the symptoms are aggravated by nothing. Associated signs and symptoms: Pertinent positives: rhinorrhea, sore throat, Pertinent negatives: chest pain, diarrhea, ear ache, fever, nausea, vomiting. The patient has not experienced similar symptoms in the past. The patient has not recently seen a physician. 15:33 cough, shortness of breath, runny nose and sore throat for 2 days. Son positive for kb covid. Historical: - Allergies: 15:08 No Known Allergies; iw - PMHx: 15:08 CHF; Gastroparesis; Hypertension; Diabetes - IDDM; iw - PSHx: 15:08 Ligation of fallopian tube; iw - Immunization history:: Adult Immunizations up to date, Client reports receiving the 2nd dose of the Covid vaccine. - Social history:: Smoking status: Patient reports the use of cigarette tobacco products, smokes one-half pack cigarettes per day. ROS: 15:32 Constitutional: Negative for fever, chills, and weight loss. kb 15:32 ENT: Positive for rhinorrhea, sore throat. 15:32 Respiratory: Positive for cough, shortness of breath. 15:32 All other systems are negative. Exam: 15:32 Constitutional: This is a well developed, well nourished patient who is awake, alert, kb and in no acute distress. Head/Face: Normocephalic, atraumatic. ENT: Moist Mucous membranes Cardiovascular: Regular rate and rhythm with a normal S1 and S2. No gallops, murmurs, or rubs. No pulse deficits. Respiratory: Respirations even and unlabored. No increased work of breathing. Talking in full sentences Skin: Warm, dry with normal turgor. Normal color. MS/ Extremity: Pulses equal, no cyanosis. Neurovascular intact. Full, normal range of motion. Neuro: Awake and alert, GCS 15, oriented to person, place, time, and situation. Moves all extremities. Normal gait. Psych: Awake, alert, with orientation to person, place and time. Behavior, mood, and affect are within normal limits. Vital Signs: 15:06 BP 132 / 78; Pulse 90; Resp 20; Temp 99.2; Pulse Ox 100% ; Weight 77.11 kg; Height 5 iw ft. 4 in. (162.56 cm); Pain 0/10; 15:06 Body Mass Index 29.18 (77.11 kg, 162.56 cm) iw MDM: 15:04 Patient medically screened. kb 15:32 Data reviewed: vital signs, nurses notes. Data interpreted: Pulse oximetry: on room air kb is 100 %. Interpretation: normal. 16:16 Counseling: I had a detailed discussion with the patient and/or guardian regarding: the kb historical points, exam findings, and any diagnostic results supporting the discharge/admit diagnosis, lab results, the need for outpatient follow up, a family practitioner, to return to the emergency department if symptoms worsen or persist or if there are any questions or concerns that arise at home. 09/05 15:09 Order name: COVID-19/FLU A+B (Document "Date of Onset" if Symptomatic); Complete Time: iw 16:16 Administered Medications: No medications were administered Disposition: 09/06 08:45 Co-signature as Attending Physician, Sanchez Mclean MD I agree with the assessment and huey plan of care. Disposition Summary: 09/05/21 16:16 Discharge Ordered Location: Home kb Condition: Stable kb Diagnosis - Acute upper respiratory infection, unspecified kb Followup: kb - With: Emergency Department - When: As needed - Reason: Worsening of condition Followup: kb - With: Private Physician - When: 2 - 3 days - Reason: Recheck today's complaints, Continuance of care, Re-evaluation by your physician Discharge Instructions: - Discharge Summary Sheet kb - Upper Respiratory Infection, Adult, [id number] kb - Viral Respiratory Infection, [id number] kb Forms: - Medication Reconciliation Form kb - Thank You Letter kb - Antibiotic Education kb - Prescription Opioid Use kb Signatures: Dispatcher [employer] Betty Pratt, DONOR SERVICES MANAGER-C DONOR SERVICES MANAGER-Ckb Sanchez Mclean MD MD cha Williams, Irene, RN RN iw
--- NOTE | 2021-09-05 16:17 | ER ---
Nurse's Notes [facility] Name: Sunita Donohue Age: 55 yrs Sex: Female : 1965 Arrival Date: 09/05/2021 Time: 14:06 Bed Waiting Private MD: Diagnosis: Acute upper respiratory infection, unspecified Presentation: 09/05 15:06 Chief complaint: Patient states: cough, shortness of breath, runny nose and sore throat iw for 2 days. Son tested positive. Ebola Screen: Patient negative for fever greater than or equal to 101.5 degrees Fahrenheit, and additional compatible Ebola Virus Disease symptoms Patient denies exposure to infectious person. Patient denies travel to an Ebola-affected area in the 21 days before illness onset. No symptoms or risks identified at this time. Risk Assessment: Do you want to hurt yourself or someone else? Patient reports no desire to harm self or others. Onset of symptoms was September 03, 2021. 15:06 Method Of Arrival: Ambulatory iw 15:06 Acuity: RIKI 4 iw 15:06 Coronavirus screen: Vaccine status: Patient reports receiving the 2nd dose of the covid iw vaccine. Initial Sepsis Screen: Does the patient meet any 2 criteria? No. Patient's initial sepsis screen is negative. Does the patient have a suspected source of infection? No. Patient's initial sepsis screen is negative. Triage Assessment: 15:08 General: Appears in no apparent distress. comfortable, Behavior is calm, cooperative. iw Pain: Denies pain. Historical: - Allergies: 15:08 No Known Allergies; iw - PMHx: 15:08 CHF; Gastroparesis; Hypertension; Diabetes - IDDM; iw - PSHx: 15:08 Ligation of fallopian tube; iw - Immunization history:: Adult Immunizations up to date, Client reports receiving the 2nd dose of the Covid vaccine. - Social history:: Smoking status: Patient reports the use of cigarette tobacco products, smokes one-half pack cigarettes per day. Vital Signs: 15:06 BP 132 / 78; Pulse 90; Resp 20; Temp 99.2; Pulse Ox 100% ; Weight 77.11 kg; Height 5 iw ft. 4 in. (162.56 cm); Pain 0/10; 15:06 Body Mass Index 29.18 (77.11 kg, 162.56 cm) iw ED Course: 14:06 Patient arrived in ED. as 15:04 Betty Atkinson FNP-C is [facility]. kb 15:04 Sanchez Mclean MD is Attending Physician. kb 15:07 Triage completed. iw 15:09 Arm band placed on left wrist. iw 16:20 Jennifer Harp, RN is Primary Nurse. iw Administered Medications: No medications were administered Outcome: 16:16 Discharge ordered by . kb 16:20 Patient left the ED. iw Signatures: Betty Atkinson FNP-C FNP-Sonya Villegas as Jennifer Harp, RN RN iw
[2021-09-05 16:45] VITALS: BP 132/78; TEMP 99.2; O2SAT 100
== END 2021-09-05 16:20 | disposition home or self-care (01) ==
LOC: ER 14:05
DX: J06.9 Acute upper respiratory infection, unspecified (principal); Z20.822 Contact with and (suspected) exposure to COVID-19; F17.210 Nicotine dependence, cigarettes, uncomplicated; I10 Essential (primary) hypertension
CPT/HCPCS: 0240U; 99281

== ENCOUNTER 2021-11-02 12:01 | Inpatient (IN) | payer OTHER ==
--- OUTSIDE RECORDS SUMMARY | 2021-11-02 12:05 | XMS REPORT | Continuity of Care Document ---
:1965 Author Organization [facility] t Address [address] [place] [address] Care Team Providers Name Role Phone PCP, DOES NOT HAVE A Primary Care Physician Unavailable Hernandez ROMAN Attending Clinician Unavailable Hernandez Florian Attending Clinician Doctor Unassigned, Name Attending Clinician Unavailable Murali Madrigal DO Attending Clinician Visit, Nurse Attending Clinician Unavailable FAN Attending Clinician Unavailable Pcp, Does Not Have A Attending Clinician FAN Admitting Clinician Unavailable Payers Payer Name Policy Type Policy Number Effective Date Expiration Date Elder KIMBALL [id number] 2020 PLUS CLASSIC/VALUE 00:00:00 Problems Condition Condition Condition Status Onset Resolution Last Treating Co mments Source Name Details Category Date Date Treatment Clinician Date Nausea and Nausea and Disease Active U nivers vomiting vomiting 4-19 ity of 00:00: [address] Acute Acute Disease Active Univers gastroente gastroente 4-18 it y of ritis ritis 00:00: [address] ANTHONY (acute ANTHONY (acute Disease Active U nivers kidney kidney 3-19 ity of injury) injury) 00:00: [address] DKA DKA Disease Active Univers (diabetic (diabetic 2-18 ity of ketoacidos [place] [address] [place] [address] Screening Screening Disease Active Overview: Univers for STD for STD 9-29 ICD10 ity of (sexually (sexually 00:00: Diagnosis [place] transmitte transmitte 00 Term Me dical d disease) d disease) 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 Utility Essential Essential Disease Active Overview: [facility] hypertensi hypertensi 06-01 ICD10 it y of on on 00:00: Diagnosis [place] 00 Term Medical 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 Utility Need for Need for Disease Active Unive rs Tdap Tdap 06-01 ity of vaccinatio vaccinatio 00:[place] n n 00 Medical Branch Type 2 Type 2 Disease Active Overview: [facility] s diabetes diabetes 06-01 ICD10 ity of mellitus mellitus 00:00: Diagnosis [place] without without 00 Term Medical complicati complicati 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 ons ons Utility Obesity Obesity Disease Active Overview: Univ ers 06-01 ICD10 ity of 00:00: Diagnosis [place] 00 Term Medical 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 Utility Yeast Yeast Disease Active Univers infection infection 06-01 ity of of the of the 00:00: [place] vagina vagina 00 Medical Branch Allergies, Adverse Reactions, Alerts Allergy Allergy Status Severity Reaction(s) Onset Inactive Treating Comm ents Source Name Type Date Date Clinician NO KNOWN Drug Active Univers ALLERGIE Class ity of S [facility] Social History Social Habit Start Date Stop Date Quantity Comments Source Exposure to Not sure [facility] SARS-CoV-2 [facility] (event) Branch Tobacco use and 2020-12-24 2020-12-24 Never used Universit y of exposure 00:00:00 00:00:00 [facility] Alcohol intake 2020-12-24 2020-12-24 Current University of 00:00:00 00:00:00 non-drinker of [facility] alcohol Branch (finding) History of 2004-09-03 Smoker [facility] tobacco use 00:00:00 [facility] Sex Assigned At [birth year] Universit y of 00:00:00 00:00:00 [facility] Smoking Status Start Date Stop Date Source Former smoker 2020-12-24 00:00:00 2020-12-24 00:00:00 Universi ty of [facility] Medications Ordered Filled Start Stop Current Ordering Indication Dosage Frequency Signature Comments Components Source Medication Medication Date Date Medication? Clinician (SIG) Name Name clotrimazol Yes [id number] 1{appli Insert 1 Univers e 1 % 4-23 cator} Applicator ity of vaginal 00:00: into [place] cream 00 vagina at Medical bedtime. [place] clotrimazol Yes [id number] 1{appli Insert 1 Univers e 1 % 4-23 cator} Applicator ity of vaginal 00:00: into [place] cream 00 vagina at Medical bedtime. Branch fluconazole 2020- No [id number] 150mg Take 1 Univers (DIFLUCAN) 4-23 05-16 tablet by ity of 150 mg 00:00: 04:59 mouth [place] tablet 00 :00 weekly for Medical 4 doses. Branch fluconazole 2020- No [id number] 150mg Take 1 Univers (DIFLUCAN) 4-23 05-16 tablet by ity of 150 mg 00:00: 04:59 mouth [place] tablet 00 :00 weekly for Medical 4 doses. [place] JARDIANCE Yes Univers 3-05 ity of 00:00: [place] 00 [facility] lisinopriL Yes Univers 10 mg 3-05 ity of tablet 00:00: [place] [facility] JARDIANCE 0 Yes Univers 3-05 ity of 00:00: [place] 00 Medical [place] lisinopriL 0 Yes Univers 10 mg 3-05 ity of tablet 00:00: [place] 00 [facility] clotrimazol 0 Yes [id number] 1{appli Insert 1 Univers e 1 % 6-24 cator} Applicator ity of vaginal 00:00: into [place] cream 00 vagina at Medical bedtime. [place] clotrimazol Yes [id number] 1{appli Insert 1 Univers e 1 % 6-24 cator} Applicator ity of vaginal 00:00: into [place] cream 00 vagina at Medical bedtime. [place] clotrimazol Yes [id number] 1{appli Insert 1 Univers e 1 % 6-24 cator} Applicator ity of vaginal 00:00: into [place] cream 00 vagina at Medical bedtime. [place] clotrimazol Yes [id number] 1{appli Insert 1 Univers e 1 % 6-24 cator} Applicator ity of vaginal 00:00: into [place] cream 00 vagina at Medical bedtime. Branch clotrimazol Yes [id number] 1{appli Insert 1 Univers e 1 % 6-24 cator} Applicator ity of vaginal 00:00: into [place] cream 00 vagina at Medical bedtime. [place] clotrimazol Yes [id number] 1{appli Insert 1 Univers e 1 % 6-24 cator} Applicator ity of vaginal 00:00: into [place] cream 00 vagina at Medical bedtime. [place] fluconazole 2020- No [id number] 150mg Take 1 Univers (DIFLUCAN) 02-24-25 tablet by ity of 150 mg 00:00: 04:59 [place] tablet 00 :00 now for 1 Medical dose. [place] fluconazole 2019- No [id number] 150mg Take 1 Univers (DIFLUCAN) 02-2425 tablet by ity of 150 mg 00:00: 04:59 [place] tablet 00 :00 now for 1 Medical dose. [place] clotrimazol Yes [id number] 1{appli Insert 1 Univers e 1 % 5-18 cator} Applicator ity of vaginal 00:00: into [place] cream 00 vagina at Medical bedtime. [place] clotrimazol Yes [id number] 1{appli Insert 1 Univers e 1 % 5-18 cator} Applicator ity of vaginal 00:00: into [place] cream 00 vagina at Medical bedtime. [place] clotrimazol Yes [id number] 1{appli Insert 1 Univers e 1 % 5-18 cator} Applicator ity of vaginal 00:00: into [place] cream 00 vagina at Medical bedtime. [place] clotrimazol Yes [id number] 1{appli Insert 1 Univers e 1 % 5-18 cator} Applicator ity of vaginal 00:00: into [place] cream 00 vagina at Medical bedtime. [place] clotrimazol Yes [id number] 1{appli Insert 1 Univers e 1 % 5-18 cator} Applicator ity of vaginal 00:00: into [place] cream 00 vagina at Medical bedtime. [place] clotrimazol Yes [id number] 1{appli Insert 1 Univers e 1 % 5-18 cator} Applicator ity of vaginal 00:00: into [place] cream 00 vagina at Medical bedtime. Branch clotrimazol 2020- No [id number] 1{appli Insert 1 Univers e 1 % 512-24 cator} Applicator ity o f vaginal 00:00: 00:00 into [place] cream 00 :00 vagina at Medical bedtime. Branch clotrimazol 2020- No [id number] 1{appli Insert 1 Univers e 1 % 512-24 cator} Applicator ity o f vaginal 00:00: 00:00 into [place] cream 00 :00 vagina at Medical bedtime. Branch azithromyci Yes [id number] 250mg Take 1 Univers n 4-25 tablet by ity of (ZITHROMAX 00:00: mouth [place] Z-KANNAN) 250 00 SEE-INSTRU Med ical mg tablet CTIONS. Branch Take 500 mg day 1, then 250 mg days 2 to 5. albuterol Yes [id number] 2{puff} Inhale 2 Univers 90 4-25 Puffs ity of mcg/actuati 00:00: every 4 [place] on inhaler 00 (four) Medical hours as Branch needed for Wheezing or Shortness of Breath. predniSONE 2019- Yes [id number] 10mg Take 1 U nivers 10 mg 4-25 tablet by ity of tablet 00:00: mouth [place] 00 daily. Medical Branch azithromyci Yes [id number] 250mg Take 1 Univers n 4-25 tablet by ity of (ZITHROMAX 00:00: mouth [place] Z-KANNAN) 250 00 SEE-INSTRU Med ical mg tablet CTIONS. Branch Take 500 mg day 1, then 250 mg days 2 to 5. albuterol 2019- Yes [id number] 2{puff} Inhale 2 Univers 90 4-25 Puffs ity of mcg/actuati 00:00: every 4 [place] on inhaler 00 (four) Medical hours as Branch needed for Wheezing or Shortness of Breath. predniSONE 2020-0 Yes [id number] 10mg Take 1 U nivers 10 mg 4-25 tablet by ity of tablet 00:00: mouth [place] 00 daily. Medical Branch azithromyci Yes [id number] 250mg Take 1 Univers n 4-25 tablet by ity of (ZITHROMAX 00:00: mouth [place] Z-KANNAN) 250 00 SEE-INSTRU Med ical mg tablet CTIONS. Branch Take 500 mg day 1, then 250 mg days 2 to 5. albuterol 2020-0 Yes [id number] 2{puff} Inhale 2 Univers 90 4-25 Puffs ity of mcg/actuati 00:00: every 4 [place] on inhaler 00 (four) Medical hours as Branch needed for Wheezing or Shortness of Breath. predniSONE 2020-0 Yes [id number] 10mg Take 1 U nivers 10 mg 4-25 tablet by ity of tablet 00:00: mouth [place] 00 daily. Medical Branch azithromyci 2020-0 Yes [id number] 250mg Take 1 Univers n 4-25 tablet by ity of (ZITHROMAX 00:00: mouth [place] Z-KANNAN) 250 00 SEE-INSTRU Med ical mg tablet CTIONS. Branch Take 500 mg day 1, then 250 mg days 2 to 5. albuterol 2020-0 Yes [id number] 2{puff} Inhale 2 Univers 90 4-25 Puffs ity of mcg/actuati 00:00: every 4 [place] on inhaler 00 (four) Medical hours as Branch needed for Wheezing or Shortness of Breath. predniSONE 2020-0 Yes [id number] 10mg Take 1 U nivers 10 mg 4-25 tablet by ity of tablet 00:00: mouth [place] 00 daily. Medical Branch albuterol 2020-0 Yes [id number] 2{puff} Inhale 2 Univers 90 4-25 Puffs ity of mcg/actuati 00:00: every 4 [place] on inhaler 00 (four) Medical hours as Branch needed for Wheezing or Shortness of Breath. albuterol 2020-0 Yes [id number] 2{puff} Inhale 2 Univers 90 4-25 Puffs ity of mcg/actuati 00:00: every 4 [place] on inhaler 00 (four) Medical hours as Branch needed for Wheezing or Shortness of Breath. azithromyci 2020-0 Yes [id number] 250mg Take 1 Univers n 4-25 tablet by ity of (ZITHROMAX 00:00: mouth [place] Z-KANNAN) 250 00 SEE-INSTRU Med ical mg tablet CTIONS. Branch Take 500 mg day 1, then 250 mg days 2 to 5. albuterol 2020-0 Yes [id number] 2{puff} Inhale 2 Univers 90 4-25 Puffs ity of mcg/actuati 00:00: every 4 [place] on inhaler 00 (four) Medical hours as Branch needed for Wheezing or Shortness of Breath. predniSONE 2020-0 Yes [id number] 10mg Take 1 U nivers 10 mg 4-25 tablet by ity of tablet 00:00: mouth [place] 00 daily. Medical Branch azithromyci 2020-0 Yes [id number] 250mg Take 1 Univers n 4-25 tablet by ity of (ZITHROMAX 00:00: mouth [place] Z-KANNAN) 250 00 SEE-INSTRU Med ical mg tablet CTIONS. Branch Take 500 mg day 1, then 250 mg days 2 to 5. albuterol 2020-0 Yes [id number] 2{puff} Inhale 2 Univers 90 4-25 Puffs ity of mcg/actuati 00:00: every 4 [place] on inhaler 00 (four) Medical hours as Branch needed for Wheezing or Shortness of Breath. predniSONE 2020-0 Yes [id number] 10mg Take 1 U nivers 10 mg 4-25 tablet by ity of tablet 00:00: mouth [place] 00 daily. Medical Branch azithromyci 2019-0 Yes [id number] 250mg Take 1 Univers n 4-25 tablet by ity of (ZITHROMAX 00:00: mouth [place] Z-KANNAN) 250 00 SEE-INSTRU Med ical mg tablet CTIONS. Branch Take 500 mg day 1, then 250 mg days 2 to 5. albuterol 2020-0 Yes [id number] 2{puff} Inhale 2 Univers 90 4-25 Puffs ity of mcg/actuati 00:00: every 4 [place] on inhaler 00 (four) Medical hours as Branch needed for Wheezing or Shortness of Breath. predniSONE 2020-0 Yes [id number] 10mg Take 1 U nivers 10 mg 4-25 tablet by ity of tablet 00:00: mouth [place] 00 daily. Medical Branch azithromyci 2020-0 2021- No [id number] 250mg Take 1 Univers n 4-25 04-23 tablet by ity of (ZITHROMAX 00:00: 00:00 mouth [place] Z-KANNAN) 250 00 :00 SEE-INSTRU Med ical mg tablet CTIONS. Branch Take 500 mg day 1, then 250 mg days 2 to 5. predniSONE 2020- No [id number] 10mg Take 1 Univers 10 mg 4-25 04-23 tablet by ity of tablet 00:00: 00:00 mouth [place] 00 :00 daily. Medical Branch azithromyci 2020- No [id number] 250mg Take 1 Univers n 4-25 04-23 tablet by ity of (ZITHROMAX 00:00: 00:00 mouth [place] Z-KANNAN) 250 00 :00 SEE-INSTRU Med ical mg tablet CTIONS. Branch Take 500 mg day 1, then 250 mg days 2 to 5. predniSONE 2020- No [id number] 10mg Take 1 Univers 10 mg 4-25 -23 tablet by ity of tablet 00:00: 00:00 mouth [place] 00 :00 daily. Medical Branch metoclopram 2018-0 Yes [id number] 10mg Take 1 Univers stephany HCl 10 4-20 tablet by ity of mg tablet 00:00: mouth [place] 00 every 6 Medical (six) Branch hours as needed for Nausea and Vomiting (N/V). metoclopram 2019-0 Yes [id number] 10mg Take 1 Univers stephany HCl 10 4-20 tablet by ity of mg tablet 00:00: mouth [place] 00 every 6 Medical (six) Branch hours as needed for Nausea and Vomiting (N/V). metoclopram 2019-0 Yes [id number] 10mg Take 1 Univers stephany HCl 10 4-20 tablet by ity of mg tablet 00:00: mouth [place] 00 every 6 Medical (six) Branch hours as needed for Nausea and Vomiting (N/V). metoclopram 2019-0 Yes [id number] 10mg Take 1 Univers stephany HCl 10 4-20 tablet by ity of mg tablet 00:00: mouth [place] 00 every 6 Medical (six) Branch hours as needed for Nausea and Vomiting (N/V). metoclopram 2019-0 Yes [id number] 10mg Take 1 Univers stephany HCl 10 4-20 tablet by ity of mg tablet 00:00: mouth [place] 00 every 6 Medical (six) Branch hours as needed for Nausea and Vomiting (N/V). metoclopram 2019-0 Yes [id number] 10mg Take 1 Univers stephany HCl 10 4-20 tablet by ity of mg tablet 00:00: mouth [place] 00 every 6 Medical (six) Branch hours as needed for Nausea and Vomiting (N/V). metoclopram 2019-0 Yes [id number] 10mg Take 1 Univers stephany HCl 10 4-20 tablet by ity of mg tablet 00:00: mouth [place] 00 every 6 Medical (six) Branch hours as needed for Nausea and Vomiting (N/V). metoclopram 2019-0 Yes [id number] 10mg Take 1 Univers stephany HCl 10 4-20 tablet by ity of mg tablet 00:00: mouth [place] 00 every 6 Medical (six) Branch hours as needed for Nausea and Vomiting (N/V). metoclopram 2019-0 Yes [id number] 10mg Take 1 Univers stephany HCl 10 4-20 tablet by ity of mg tablet 00:00: mouth [place] 00 every 6 Medical (six) Branch hours as needed for Nausea and Vomiting (N/V). metoclopram 2018-0 Yes [id number] 10mg Take 1 Univers stephany HCl 10 4-20 tablet by ity of mg tablet 00:00: mouth [place] 00 every 6 Medical (six) Branch hours as needed for Nausea and Vomiting (N/V). lactobacill Yes [id number] 1{tbl} Take 1 Univers us 3-21 tablet by ity of acidophilus 00:00: mouth 2 [place] 25 million 00 (two) Medical cell -100 times Branch mg captab daily. lactobacill Yes [id number] 1{tbl} Take 1 Univers us 3-21 tablet by ity of acidophilus 00:00: mouth 2 [place] 25 million 00 (two) Medical cell -100 times Branch mg captab daily. lactobacill 2019-0 Yes [id number] 1{tbl} Take 1 Univers us 3-21 tablet by ity of acidophilus 00:00: mouth 2 [place] 25 million 00 (two) Medical cell -100 times Branch mg captab daily. lactobacill 2019-0 Yes [id number] 1{tbl} Take 1 Univers us 3-21 tablet by ity of acidophilus 00:00: mouth 2 [place] 25 million 00 (two) Medical cell -100 times Branch mg captab daily. lactobacill Yes [id number] 1{tbl} Take 1 Univers us 3-21 tablet by ity of acidophilus 00:00: mouth 2 [place] 25 million 00 (two) Medical cell -100 times Branch mg captab daily. lactobacill 0 Yes [id number] 1{tbl} Take 1 Univers us 3-21 tablet by ity of acidophilus 00:00: mouth 2 [place] 25 million 00 (two) Medical cell -100 times Branch mg captab daily. lactobacill 2018- Yes [id number] 1{tbl} Take 1 Univers us 3-21 tablet by ity of acidophilus 00:00: mouth 2 [place] 25 million 00 (two) Medical cell -100 times Branch mg captab daily. lactobacill Yes [id number] 1{tbl} Take 1 Univers us 3-21 tablet by ity of acidophilus 00:00: mouth 2 [place] 25 million 00 (two) Medical cell -100 times Branch mg captab daily. lactobacill Yes [id number] 1{tbl} Take 1 Univers us 3-21 tablet by ity of acidophilus 00:00: mouth 2 [place] 25 million 00 (two) Medical cell -100 times Branch mg captab daily. lactobacill Yes [id number] 1{tbl} Take 1 Univers us 3-21 tablet by ity of acidophilus 00:00: mouth 2 [place] 25 million 00 (two) Medical cell -100 times Branch mg captab daily. aspirin 81 2018- Yes [id number] 81mg Take 1 Univers mg chewable 2-21 tablet by ity of tablet 00:00: mouth [place] 00 daily. Medical Branch pantoprazol 2019-0 Yes [id number] 40mg Take 1 Univers e 40 mg EC 2-21 tablet by ity of tablet 00:00: mouth [place] 00 daily. Medical Branch aspirin 81 2018-0 Yes [id number] 81mg Take 1 Univers mg chewable 2-21 tablet by ity of tablet 00:00: mouth [place] 00 daily. Medical Branch pantoprazol 2019-0 Yes [id number] 40mg Take 1 Univers e 40 mg EC 2-21 tablet by ity of tablet 00:00: mouth [place] 00 daily. [facility] Branch aspirin 81 2019-0 Yes [id number] 81mg Take 1 Univers mg chewable 2-21 tablet by ity of tablet 00:00: mouth [place] 00 daily. Medical Branch pantoprazol 2019-0 Yes [id number] 40mg Take 1 Univers e 40 mg EC 2-21 tablet by ity of tablet 00:00: mouth [place] 00 daily. Medical Branch aspirin 81 2019-0 Yes [id number] 81mg Take 1 Univers mg chewable 2-21 tablet by ity of tablet 00:00: mouth [place] 00 daily. Medical Branch pantoprazol 2019-0 Yes [id number] 40mg Take 1 Univers e 40 mg EC 2-21 tablet by ity of tablet 00:00: mouth [place] 00 daily. Medical Branch aspirin 81 2018-0 Yes [id number] 81mg Take 1 Univers mg chewable 2-21 tablet by ity of tablet 00:00: mouth [place] 00 daily. Medical Branch pantoprazol 2019-0 Yes [id number] 40mg Take 1 Univers e 40 mg EC 2-21 tablet by ity of tablet 00:00: mouth [place] 00 daily. Medical Branch aspirin 81 2018-0 Yes [id number] 81mg Take 1 Univers mg chewable 2-21 tablet by ity of tablet 00:00: mouth [place] 00 daily. Medical Branch pantoprazol 2018-0 Yes [id number] 40mg Take 1 Univers e 40 mg EC 2-21 tablet by ity of tablet 00:00: mouth [place] 00 daily. Medical Branch aspirin 81 2018-0 Yes [id number] 81mg Take 1 Univers mg chewable 2-21 tablet by ity of tablet 00:00: mouth [place] 00 daily. Medical Branch pantoprazol 2019-0 Yes [id number] 40mg Take 1 Univers e 40 mg EC 2-21 tablet by ity of tablet 00:00: mouth [place] 00 daily. Medical Branch aspirin 81 2019-0 Yes [id number] 81mg Take 1 Univers mg chewable 2-21 tablet by ity of tablet 00:00: mouth [place] 00 daily. Medical Branch pantoprazol 2019-0 Yes [id number] 40mg Take 1 Univers e 40 mg EC 2-21 tablet by ity of tablet 00:00: mouth [place] 00 daily. Medical Branch aspirin 81 2019-0 Yes [id number] 81mg Take 1 Univers mg chewable 2-21 tablet by ity of tablet 00:00: mouth [place] 00 daily. Medical Branch pantoprazol 2019-0 Yes [id number] 40mg Take 1 Univers e 40 mg EC 2-21 tablet by ity of tablet 00:00: mouth [place] 00 daily. Medical Branch aspirin 81 2019-0 Yes [id number] 81mg Take 1 Univers mg chewable 2-21 tablet by ity of tablet 00:00: mouth [place] 00 daily. Medical Branch pantoprazol 2019-0 Yes [id number] 40mg Take 1 Univers e 40 mg EC 2-21 tablet by ity of tablet 00:00: mouth [place] 00 daily. Medical Branch insulin NPH 2018-0 Yes [id number] 14U inject 14 Univers 100 unit/mL 2-20 Units ity of injection 00:00: under the [place] 00 skin every Medical morning. Branch insulin NPH 0 Yes [id number] 10U inject 10 Univers 100 unit/mL 2-20 Units ity of injection 00:00: under the [place] 00 skin every Medical evening. Branch metoclopram 0 Yes [id number] 10mg Take 1 Univers stephany HCl 10 2-20 tablet by ity of mg tablet 00:00: mouth [place] 00 every 6 Medical (six) Branch hours as needed for Nausea and Vomiting (N/V). insulin Yes [id number] Use as Uni vers syringe-nee 2-20 directed ity of dle U-100 1 00:00: [place] ml (INSULIN 00 Medical SYRINGE) 1 Branch mL 29 gauge x 1/2" Syrg metformin 2018-0 Yes [id number] 750mg Take 1 Univers ER 750 mg 2-20 tablet by ity o f 24 hr 00:00: mouth [place] tablet 00 daily with Medical breakfast. Branch atorvastati 2018-0 Yes [id number] 40mg Take 1 Univers n 40 mg 2-20 tablet by ity of tablet 00:00: mouth at [place] 00 bedtime. Medical Branch insulin NPH 0 Yes [id number] 14U inject 14 Univers 100 unit/mL 2-20 Units ity of injection 00:00: under the [place] 00 skin every Medical morning. Branch insulin NPH 0 Yes [id number] 10U inject 10 Univers 100 unit/mL 2-20 Units ity of injection 00:00: under the [place] 00 skin every Medical evening. Branch metoclopram 0 Yes [id number] 10mg Take 1 Univers stephany HCl 10 2-20 tablet by ity of mg tablet 00:00: mouth [place] 00 every 6 Medical (six) Branch hours as needed for Nausea and Vomiting (N/V). insulin 2019-0 Yes [id number] Use as Uni vers syringe-nee 2-20 directed ity of dle U-100 1 00:00: [place] ml (INSULIN 00 Medical SYRINGE) 1 Branch mL 29 gauge x 1/2" Syrg metformin 2018-0 Yes [id number] 750mg Take 1 Univers ER 750 mg 2-20 tablet by ity o f 24 hr 00:00: mouth [place] tablet 00 daily with Medical breakfast. Branch atorvastati 2018-0 Yes [id number] 40mg Take 1 Univers n 40 mg 2-20 tablet by ity of tablet 00:00: mouth at [place] 00 bedtime. Medical Branch insulin NPH 2018-0 Yes [id number] 14U inject 14 Univers 100 unit/mL 2-20 Units ity of injection 00:00: under the [place] 00 skin every Medical morning. Branch insulin NPH 0 Yes [id number] 10U inject 10 Univers 100 unit/mL 2-20 Units ity of injection 00:00: under the [place] 00 skin every Medical evening. Branch metoclopram 0 Yes [id number] 10mg Take 1 Univers stephany HCl 10 2-20 tablet by ity of mg tablet 00:00: mouth [place] 00 every 6 Medical (six) Branch hours as needed for Nausea and Vomiting (N/V). insulin 2018-0 Yes [id number] Use as Uni vers syringe-nee 2-20 directed ity of dle U-100 1 00:00: [place] ml (INSULIN 00 Medical SYRINGE) 1 Branch mL 29 gauge x 1/2" Syrg metformin 2018-0 Yes [id number] 750mg Take 1 Univers ER 750 mg 2-20 tablet by ity o f 24 hr 00:00: mouth [place] tablet 00 daily with Medical breakfast. Branch atorvastati 2019-0 Yes [id number] 40mg Take 1 Univers n 40 mg 2-20 tablet by ity of tablet 00:00: mouth at [place] 00 bedtime. Medical Branch insulin NPH 2018-0 Yes [id number] 14U inject 14 Univers 100 unit/mL 2-20 Units ity of injection 00:00: under the [place] 00 skin every Medical morning. Branch insulin NPH 2018-0 Yes [id number] 10U inject 10 Univers 100 unit/mL 2-20 Units ity of injection 00:00: under the [place] 00 skin every Medical evening. Branch metoclopram 2018- Yes [id number] 10mg Take 1 Univers stephany HCl 10 2-20 tablet by ity of mg tablet 00:00: mouth [place] 00 every 6 Medical (six) Branch hours as needed for Nausea and Vomiting (N/V). insulin Yes [id number] Use as Uni vers syringe-nee 2-20 directed ity of dle U-100 1 00:00: [place] ml (INSULIN 00 Medical SYRINGE) 1 Branch mL 29 gauge x 1/2" Syrg metformin Yes [id number] 750mg Take 1 Univers ER 750 mg 2-20 tablet by ity o f 24 hr 00:00: mouth [place] tablet 00 daily with Medical breakfast. Branch atorvastati Yes [id number] 40mg Take 1 Univers n 40 mg 2-20 tablet by ity of tablet 00:00: mouth at [place] 00 bedtime. Medical Branch insulin NPH 2018- Yes [id number] 14U inject 14 Univers 100 unit/mL 2-20 Units ity of injection 00:00: under the [place] 00 skin every Medical morning. Branch metoclopram Yes [id number] 10mg Take 1 Univers stephany HCl 10 2-20 tablet by ity of mg tablet 00:00: mouth [place] 00 every 6 Medical (six) Branch hours as needed for Nausea and Vomiting (N/V). insulin 2018- Yes [id number] Use as Uni vers syringe-nee 2-20 directed ity of dle U-100 1 00:00: [place] ml (INSULIN 00 Medical SYRINGE) 1 Branch mL 29 gauge x 1/2" Syrg metformin 2018- Yes [id number] 750mg Take 1 Univers ER 750 mg 2-20 tablet by ity o f 24 hr 00:00: mouth [place] tablet 00 daily with Medical breakfast. Branch atorvastati 2018- Yes [id number] 40mg Take 1 Univers n 40 mg 2-20 tablet by ity of tablet 00:00: mouth at [place] 00 bedtime. Medical Branch insulin NPH 2018- Yes [id number] 14U inject 14 Univers 100 unit/mL 2-20 Units ity of injection 00:00: under the [place] 00 skin every Medical morning. Branch metoclopram 2018- Yes [id number] 10mg Take 1 Univers stephany HCl 10 2-20 tablet by ity of mg tablet 00:00: mouth [place] 00 every 6 Medical (six) Branch hours as needed for Nausea and Vomiting (N/V). insulin 0 Yes [id number] Use as Uni vers syringe-nee 2-20 directed ity of dle U-100 1 00:00: [place] ml (INSULIN 00 Medical SYRINGE) 1 Branch mL 29 gauge x 1/2" Syrg metformin 2018-0 Yes [id number] 750mg Take 1 Univers ER 750 mg 2-20 tablet by ity o f 24 hr 00:00: mouth [place] tablet 00 daily with Medical breakfast. Branch atorvastati Yes [id number] 40mg Take 1 Univers n 40 mg 2-20 tablet by ity of tablet 00:00: mouth at [place] 00 bedtime. Medical Branch insulin NPH 0 Yes [id number] 14U inject 14 [facility] 100 unit/mL 2-20 Units ity of injection 00:00: under the [place] 00 skin every Medical morning. Branch insulin NPH Yes [id number] 10U inject 10 [facility] 100 unit/mL 2-20 Units ity of injection 00:00: under the [place] 00 skin every Medical evening. Branch metoclopram Yes [id number] 10mg Take 1 Univers stephany HCl 10 2-20 tablet by ity of mg tablet 00:00: mouth [place] 00 every 6 Medical (six) Branch hours as needed for Nausea and Vomiting (N/V). insulin 0 Yes [id number] Use as Uni vers syringe-nee 2-20 directed ity of dle U-100 1 00:00: [place] ml (INSULIN 00 Medical SYRINGE) 1 Branch mL 29 gauge x 1/2" Syrg metformin 2018-0 Yes [id number] 750mg Take 1 [facility] ER 750 mg 2-20 tablet by ity o f 24 hr 00:00: mouth [place] tablet 00 daily with Medical breakfast. Branch atorvastati 0 Yes [id number] 40mg Take 1 Univers n 40 mg 2-20 tablet by ity of tablet 00:00: mouth at [place] 00 bedtime. Medical Branch insulin NPH Yes [id number] 14U inject 14 [facility] 100 unit/mL 2-20 Units ity of injection 00:00: under the [place] 00 skin every Medical morning. Branch insulin NPH Yes [id number] 10U inject 10 [facility] 100 unit/mL 2-20 Units ity of injection 00:00: under the [place] 00 skin every Medical evening. Branch metoclopram 2018- Yes [id number] 10mg Take 1 [facility] stephany HCl 10 2-20 tablet by ity of mg tablet 00:00: mouth [place] 00 every 6 Medical (six) Branch hours as needed for Nausea and Vomiting (N/V). insulin 2018- Yes [id number] Use as Uni vers syringe-nee 2-20 directed ity of dle U-100 1 00:00: [place] ml (INSULIN 00 Medical SYRINGE) 1 Branch mL 29 gauge x 1/2" Syrg metformin Yes [id number] 750mg Take 1 [facility] ER 750 mg 2-20 tablet by ity o f 24 hr 00:00: mouth [place] tablet 00 daily with Medical breakfast. Branch atorvastati Yes [id number] 40mg Take 1 Univers n 40 mg 2-20 tablet by ity of tablet 00:00: mouth at [place] 00 bedtime. Medical Branch insulin NPH Yes [id number] 14U inject 14 [facility] 100 unit/mL 2-20 Units ity of injection 00:00: under the [place] 00 skin every Medical morning. Branch insulin NPH Yes [id number] 10U inject 10 [facility] 100 unit/mL 2-20 Units ity of injection 00:00: under the [place] 00 skin every Medical evening. Branch metoclopram Yes [id number] 10mg Take 1 [facility] stephany HCl 10 2-20 tablet by ity of mg tablet 00:00: mouth [place] 00 every 6 Medical (six) Branch hours as needed for Nausea and Vomiting (N/V). insulin Yes [id number] Use as Uni vers syringe-nee 2-20 directed ity of dle U-100 1 00:00: [place] ml (INSULIN 00 Medical SYRINGE) 1 Branch mL 29 gauge x 1/2" Syrg metformin 2018-0 Yes [id number] 750mg Take 1 [facility] ER 750 mg 2-20 tablet by ity o f 24 hr 00:00: mouth [place] tablet 00 daily with Medical breakfast. Branch atorvastati Yes [id number] 40mg Take 1 [facility] n 40 mg 2-20 tablet by ity of tablet 00:00: mouth at [place] 00 bedtime. Medical Branch insulin NPH Yes [id number] 14U inject 14 [facility] 100 unit/mL 2-20 Units ity of injection 00:00: under the [place] 00 skin every Medical morning. Branch insulin NPH Yes [id number] 10U inject 10 [facility] 100 unit/mL 2-20 Units ity of injection 00:00: under the [place] 00 skin every Medical evening. Branch metoclopram Yes [id number] 10mg Take 1 Univers stephany HCl 10 2-20 tablet by ity of mg tablet 00:00: mouth [place] 00 every 6 Medical (six) Branch hours as needed for Nausea and Vomiting (N/V). insulin Yes [id number] Use as Uni vers syringe-nee 2-20 directed ity of dle U-100 1 00:00: [place] ml (INSULIN 00 Medical SYRINGE) 1 Branch mL 29 gauge x 1/2" Syrg metformin Yes [id number] 750mg Take 1 [facility] ER 750 mg 2-20 tablet by ity o f 24 hr 00:00: mouth [place] tablet 00 daily with Medical breakfast. [place] atorvastati Yes [id number] 40mg Take 1 Univers n 40 mg 2-20 tablet by ity of tablet 00:00: mouth at [place] 00 bedtime. [facility] insulin NPH 2020- No [id number] 10U inject 10 [facility] 100 unit/mL 2-20 04-23 Units ity of injection 00:00: 00:00 under the [place] 00 :00 skin every Medical evening. [place] insulin NPH 2020- No [id number] 10U inject 10 [facility] 100 unit/mL 2-20 04-23 Units ity of injection 00:00: 00:00 [place] :00 skin every Medical evening. [place] clotrimazol Yes [id number] 1{appli Insert 1 Univers e 06-01 cator} Applicator ity of (CLOTRIMAZO 00:00: into [place] LE-7) 1 % 00 vagina at Medic al vaginal bedtime. [place] cream clotrimazol Yes [id number] 1{appli Insert 1 Univers e 06-01 cator} Applicator ity of (CLOTRIMAZO 00:00: into [place] LE-7) 1 % 00 vagina at Medic al vaginal bedtime. Branch cream clotrimazol Yes [id number] 1{appli Insert 1 Univers e 06-01 cator} Applicator ity of (CLOTRIMAZO 00:00: into [place] LE-7) 1 % 00 vagina at Medic al vaginal bedtime. Branch cream clotrimazol Yes [id number] 1{appli Insert 1 Univers e 06-01 cator} Applicator ity of (CLOTRIMAZO 00:00: into [place] LE-7) 1 % 00 vagina at Medic al vaginal bedtime. Branch cream clotrimazol Yes [id number] 1{appli Insert 1 Univers e 06-01 cator} Applicator ity of (CLOTRIMAZO 00:00: into [place] LE-7) 1 % 00 vagina at Medic al vaginal bedtime. Branch cream clotrimazol Yes [id number] 1{appli Insert 1 Univers e 06-01 cator} Applicator ity of (CLOTRIMAZO 00:00: into [place] LE-7) 1 % 00 vagina at Medic al vaginal bedtime. Branch cream clotrimazol Yes [id number] 1{appli Insert 1 Univers e 06-01 cator} Applicator ity of (CLOTRIMAZO 00:00: into [place] LE-7) 1 % 00 vagina at Medic al vaginal bedtime. Branch cream clotrimazol Yes [id number] 1{appli Insert 1 Univers e 06-01 cator} Applicator ity of (CLOTRIMAZO 00:00: into [place] LE-7) 1 % 00 vagina at Medic al vaginal bedtime. Branch cream clotrimazol Yes [id number] 1{appli Insert 1 Univers e 06-01 cator} Applicator ity of (CLOTRIMAZO 00:00: into [place] LE-7) 1 % 00 vagina at Medic al vaginal bedtime. Branch cream clotrimazol Yes [id number] 1{appli Insert 1 Univers e 06-01 cator} Applicator ity of (CLOTRIMAZO 00:00: into [place] LE-7) 1 % 00 vagina at Medic al vaginal bedtime. Branch cream Immunizations Ordered Filled Immunization Date Status Comments Sourc e Immunization Name Name TDAP 2015-06-01 Completed University of 00:00:00 [place] [facility] TDAP 2015-06-01 Completed University of 00:00:00 [place] [facility] TDAP 2015-06-01 Completed [facility] of 00:00:00 [place] [facility] TDAP 2015-06-01 Completed University of 00:00:00 [place] [facility] TDAP 2015-06-01 Completed University of 00:00:00 [place] [facility] TDAP 2015-06-01 Completed University of 00:00:00 [place] [facility] Tdap 2015-06-01 Completed University of 00:00:00 [place] [facility] Tdap 2015-06-01 Completed University of 00:00:00 [place] [facility] Tdap 2015-06-01 Completed University of 00:00:00 [place] [facility] Tdap 2015-06-01 Completed University of 00:00:00 [facility] Vital Signs Vital Name Observation Time Observation Value Comments Source Systolic blood 2020-12-24 14:35:00 126 mm[Hg] Univer sity of pressure [facility] Diastolic blood 2020-12-24 14:35:00 79 mm[Hg] Unive rsity of [facility] Heart rate 2020-12-24 14:35:00 72 /min [facility] Body temperature 2020-12-24 14:35:00 37.28 [facility] Respiratory rate 2020-12-24 14:35:00 16 /min [facility] Body height 2020-12-24 14:35:00 162.6 cm [facility] Body weight 2020-12-24 14:35:00 81.103 kg [facility] BMI 2020-12-24 14:35:00 30.69 kg/m2 [facility] Systolic blood 2020-02-25 18:20:00 139 mm[Hg] Univer sity of pressure [facility] Diastolic blood 2020-02-25 18:20:00 87 mm[Hg] Unive rsity of pressure [facility] Heart rate 2020-02-25 18:20:00 88 /min [facility] Body temperature 2020-02-25 18:20:00 37 [facility] Respiratory rate 2020-02-25 18:20:00 16 /min Univ ersity of [facility] Body height 2020-02-25 18:20:00 162.6 cm Universi ty of [facility] Body weight 2020-02-25 18:20:00 84.879 kg Universi ty of [facility] Branch BMI 2020-02-25 18:20:00 32.12 kg/m2 Universi ty of [facility] Heart rate 2020-01-19 19:44:00 89 /min Universi ty of [facility] Body temperature 2020-01-19 19:44:00 36.5 Joanna Univ ersity of [facility] Respiratory rate 2020-01-19 19:44:00 16 /min Univ ersity of [facility] Body height 2020-01-19 19:44:00 162.6 cm Universi ty of [facility] Body weight 2020-01-19 19:44:00 83.604 kg Universi ty of [facility] BMI 2020-01-19 19:44:00 31.64 kg/m2 Universi ty of [facility] Systolic blood 2020-01-19 19:44:00 132 mm[Hg] Univer sity of pressure [facility] Diastolic blood 2020-01-19 19:44:00 88 mm[Hg] Unive rsity of pressure [facility] Procedures Procedure Date / Time Performing Clinician Source Performed ASSIGNMENT OF BENEFITS 2020-12-24 14:09:37 Doctor Unassigned, No [facility] Branch BCCS-RELATED 2020-01-16 05:01:00 Doctor Unassigned, No [facility] DOCUMENTATION [facility] Encounters Start End Encounter Admission Attending Care Care Encounter Source Date/Time Date/Time Type Type Clinicians Facility Department ID 2021-01-04 2021-01-04 Outpatient R AKINSIPE, [facility] [id number] 3P-20 Univers 13:45:00 13:45:00 MAGDALENA [id number] sylvia o cm [facility] 2021-01-04 2021-01-04 Outpatient R AKINSIPE, [facility] [id number] Univers 13:45:00 13:45:00 MAGDALENA ward o cm [facility] 2020-12-24 2020-12-24 Office Akinjavier, [facility] [id number] Univers 09:16:09 10:04:56 Visit Magdalena Ng PACKAGING OPERATOR [id number] ity of [facility] [id number] [place] MATERNAL [id number] Med ical & CHILD [address] [place] [address] 2020-12-24 2020-12-24 Outpatient R NAVIN, [facility] [id number] 3P-20 Univers 09:00:00 09:00:00 MAGDALENA [id number] sylvia o [facility] 2020-12-24 2020-12-24 Outpatient R NAVIN, [facility] [id number] Univers 09:00:00 09:00:00 MAGDALENA nevarezy o [facility] 2020-12-24 2020-12-24 Orders Doctor CHRIS [id number] Univers 00:00:00 00:00:00 Only Unassigned, ELLEN [id number] ity of [place] [facility] [id number] [place] [phone] [address] 2020-11-16 2020-11-16 Patient [facility] [id number] Univers 00:00:00 00:00:00 Outreach Leandro PRIMARY [id number] i ty of [facility] [id number] [place] [id number] [address] 2020-05-27 2020-05-27 Outpatient R NAVIN, [facility] [id number] 3P-20 Univers 08:15:00 08:15:00 MAGDALENA [id number] geriy o [facility] 2020-05-27 2020-05-27 Outpatient R NAVIN, [facility] [id number] Univers 08:15:00 08:15:00 MAGDALENA nevarezy o [facility] 2020-05-27 2020-05-27 Outpatient R NAVIN, [facility] [id number] Univers 08:15:00 08:15:00 MAGDALENA nevarezy o [facility] 2020-05-27 2020-05-27 Outpatient R [facility] [id number] Univers 07:45:00 07:45:00 ity of [facility] 2020-02-25 2020-02-25 [facility] [id number] Univers 13:05:53 13:56:05 Visit Magdalena Ng PACKAGING OPERATOR [id number] ity of [facility] [id number] [place] as MATERNAL [id number] [facility] & CHILD [address] [place] [address] 2020-02-25 2020-02-25 Outpatient R AKINSIPE, [facility] [id number] 3P-20 Univers 13:15:00 13:15:00 MAGDALENA [id number] ity o f [facility] 2020-02-25 2020-02-25 Outpatient R AKINSIPE, [facility] [id number] Univers 13:15:00 13:15:00 MAGDALENA ity o [facility] 2020-02-25 2020-02-25 Outpatient R AKINSIPE, [facility] [id number] Univers 13:15:00 13:15:00 MAGDALENA ity o [facility] 2020-02-25 2020-02-25 Outpatient R AKINSIPE, [facility] [id number] Univers 13:15:00 13:15:00 MAGDALENA ward o [facility] 2020-01-19 2020-01-19 Nurse Visit, [facility] Nurse [facility] [id number] Univers 14:11:10 14:26:10 Visit Magdalena Roman PACKAGING OPERATOR [id number]. 10 ity of [facility] [id number] [place] MATERNAL [id number] [facility] & [address] 2020-01-19 2020-01-19 [facility] [id number] Univers 08:10:27 11:02:57 ne Visit Magdalena C PACKAGING OPERATOR [id number] ity of [facility] [id number] [place] MATERNAL [id number] [facility] & CHILD [address] [place] [address] 2020-01-19 2020-01-19 Outpatient R AKINSIPE, [facility] [id number] 3P-20 Univers 10:45:00 10:45:00 MAGDALENA [id number] ity o [facility] 2020-01-19 2020-01-19 Outpatient R NAVIN [facility] [id number] Univers 10:45:00 10:45:00 MAGDALENA ward o f [facility] 2020-01-19 2020-01-19 Outpatient R NAVIN [facility] [id number] Univers 10:45:00 10:45:00 MAGDALENA ward o f [facility] 2020-01-16 2020-01-16 Orders Doctor CHRIS [id number] Univers 00:00:00 00:00:00 Only Unassigned, ELLEN [id number] ity of [place] [facility] [id number] [place] [phone] [address] 2019-12-27 2019-12-27 Emergency X FAN [facility] ERT [id number] Univers 10:42:28 13:30:00 MARYBEL ward of [facility] 2019-12-19 2019-12-19 Telephone Pcp, [facility] [id number] Univers 00:00:00 00:00:00 Patient PACKAGING OPERATOR [id number] it y of [place] Not [id number] MATERNAL [id number] Med ical & CHILD [address] [place] [address] Results This patient has no known results.
--- NOTE | 2021-11-02 12:31 | RAD REPORT ---
EXAM DESCRIPTION: CT - Ct Stroke Brain Wo Cont - 11/02/2021 12:23 pm CLINICAL HISTORY: CONFUSED COMPARISON: HEAD BRAIN W O CONTRAST dated 07/04/2013 TECHNIQUE: All CT scans are performed using dose optimization technique as appropriate and may inclu de automated exposure control or mA/KV adjustment according to patient size. FINDINGS: No intracranial hemorrhage, hydrocephalus or extra-axial fluid collection.Remote appearing left base basal ganglia lacunar infarct. Circumferential thickening right maxillary sinus. The calvarium is intact. IMPRESSION: No acute intracranial abnormality.
[2021-11-02 12:40] LABS: Absolute Lymphocytes (CBC) 3.5 K/uL (0.7-4.9); Hematocrit 43.6 % (36.0-45.0); Lymphocytes % 34.3 % (15.3-44.8); MPV 8.8 fL (7.6-11.3)
[2021-11-02 12:46] LABS: Protime INR 1.03
[2021-11-02 13:00] LABS: Albumin 3.8 g/dL (3.4-5.0); Bilirubin Direct 0.1 mg/dL (0-0.2); Bilirubin Total 0.6 mg/dL (0.2-1.0); Potassium 4.1 mmol/L (3.5-5.1); Protein, Total 8.1 g/dL (6.4-8.2)
[2021-11-02 13:07] LABS: Urine Blood 2+ (Negative); Urine Glucose 2+ (Negative); Urine Protein 1+ (Negative); Urine Specific Gravity >=1.030 (1.005-1.030); Urine pH 5.5 (5.0-7.0)
--- NOTE | 2021-11-02 13:15 | RAD REPORT ---
EXAM DESCRIPTION: RAD - Chest Single View - 11/02/2021 12:33 pm CLINICAL HISTORY: CONGESTION Chest pain. COMPARISON: Chest Pa And Lat (2 Views) dated 09/26/2018; Chest Single View dated 04/19/2017; CHEST PA AND LAT 2 VIEW dated 07/04/2013; CHEST PA AND LAT 2 VIEW dated 03/05/2011 FINDINGS: Portable technique limits examination quality. The lungs are grossly clear. The heart is normal in size. No displaced fractures. IMPRESSION: No acute intrathoracic process suspected.
[2021-11-02 13:20] LABS: Urine Specific Gravity/Preg >1.030 (1.005-1.030)
[2021-11-02 13:27] LABS: Barbiturates NEGATIVE (NEGATIVE); Benzodiazepines NEGATIVE (NEGATIVE); Cocaine NEGATIVE (NEGATIVE); METHAMPHETAM NEGATIVE (NEGATIVE); Methadone NEGATIVE (NEGATIVE); Opiates NEGATIVE (NEGATIVE); Phencyclidine NEGATIVE (NEGATIVE); THC Cannibis NEGATIVE (NEGATIVE)
[2021-11-02] MEDS ORDERED: ASPIRIN 325 MG TAB ONE (13:57)
--- NOTE | 2021-11-02 14:29 | ER ---
Nurse's Notes [facility] Name: Sunita Donohue Age: 55 yrs Sex: Female : 1965 Arrival Date: 11/02/2021 Time: 12:09 Bed 26 Private MD: Diagnosis: Weakness-Right upper and lower extremities Presentation: 11/02 12:15 Chief complaint: Patient states: left sided weakness since Sunday worsening x2 days, jg9 slurred speech and disorientation reported earlier by friend-that has resolved. Coronavirus screen: Vaccine status: Patient reports receiving the 2nd dose of the covid vaccine. Tok3n. Ebola Screen: Patient negative for fever greater than or equal to 101.5 degrees Fahrenheit, and additional compatible Ebola Virus Disease symptoms Patient denies exposure to infectious person. Patient denies travel to an Ebola-affected area in the 21 days before illness onset. Pre-hospital glucose is not applicable to this patient. Initial Sepsis Screen: Does the patient meet any 2 criteria? No. Patient's initial sepsis screen is negative. Does the patient have a suspected source of infection? No. Patient's initial sepsis screen is negative. Risk Assessment: Do you want to hurt yourself or someone else? Patient reports no desire to harm self or others. Onset of symptoms was October 31, 2021 at 00:00. 12:15 Method Of Arrival: Wheelchair jg9 12:15 Acuity: RIKI 2 jg9 Triage Assessment: 12:15 The onset of the patients symptoms was more than six hours ago. General: Appears in no jg9 apparent distress. Behavior is calm, cooperative. Pain: Denies pain. Neuro: Reports weakness in right hand, right foot, right arm and right leg. 12:46 The onset of the patients symptoms was more than six hours ago. jg9 12:46 The onset of the patients symptoms was. jg9 13:33 The onset of the patients symptoms was November 01, 2021 at 17:00. lr4 FINANCIAL INTERN: 12:43 LMP N/A - Post-menopause jg9 Stroke Activation: Physician: Stroke Attending; Name: ; Notified At: ; Arrived At: Physician: Chief Stroke Resident; Name: ; Notified At: ; Arrived At: Physician: Stroke Resident; Name: ; Notified At: ; Arrived At: Physician: ED Attending; Name: alzahri; Notified At: 12:15; Arrived At: 12:15 Physician: ED Resident; Name: ; Notified At: ; Arrived At: Historical: - Allergies: 12:40 No Known Allergies; jg9 - Home Meds: 13:15 lisinopril 20 mg Oral tab 1 tab once daily [Active]; Metformin Oral [Active]; lr4 - PMHx: 12:40 CHF; Diabetes - IDDM; Gastroparesis; Hypertension; jg9 13:15 Diabetes - NIDDM; lr4 - PSHx: 13:15 Ligation of fallopian tube; lr4 - Immunization history:: Adult Immunizations Client reports receiving the 2nd dose of the Covid vaccine, Pneumococcal vaccine is not up to date, Flu vaccine is up to date. - Social history:: Smoking status: Patient reports the use of cigarette tobacco products, smokes one-half pack cigarettes per day. - Family history:: not pertinent. Screenin:41 Abuse screen: Denies threats or abuse. Denies injuries from another. Nutritional jg9 screening: No deficits noted. Tuberculosis screening: No symptoms or risk factors identified. Fall Risk Fall in past 12 months (25 points). No secondary diagnosis (0 pts). Assessment: 12:15 VAN Scoring: Arm Drift: Minor drift Visual Disturbance: No visual disturbance noted. jg9 Aphasia: No aphasia noted. Neglect: No neglect noted. 12:16 Reassessment: Pt to CT now VIA wheelchair. ss 13:13 The patient has not been NPO before screening. The patient is alert, and able to follow lr4 commands. The patient exhibits slurred or garbled speech. The patient is not exhibiting difficulty speaking. The patient does not exhibit difficulty understanding words. The patient is able to swallow own secretions with no drooling or need for suction. Patient tolerated one teaspoon of water. No drooling, immediate coughing, gurgling, or clearing of the throat was noted. The patient tolerated 90mL of water. No drooling, immediate coughing, gurgling, or clearing of the throat was noted. The patient passed the bedside swallow screening. Oral medications may be given as ordered. Contact Physician for further diet orders. Provider notified of bedside swallow screening results: Sophia Steinberg MD. T-PA (Activase) Screening: Contraindications: Patient reports onset of signs and symptoms of stroke greater than 6 hours ago: Yes. 13:16 Reassessment: No changes from previously documented assessment. General: Appears in no lr4 apparent distress. comfortable, Behavior is calm, cooperative, appropriate for age. 20:43 General: Attempted to call report twice, the line is busy. 5 Vital Signs: 12:15 BP 105 / 69; Pulse 73; Resp 17 S; Temp 97.3(TE); Pulse Ox 98% on R/A; Weight 76.2 kg jg9 (R); Height 5 ft. 4 in. (162.56 cm) (R); 14:11 BP 126 / 65; Pulse 63; Resp 18; Pulse Ox 100% on R/A; lr4 15:15 BP 132 / 99; Pulse 69; Resp 18; Pulse Ox 96% on R/A; ss7 16:00 BP 133 / 70; Pulse 79; Resp 18; Pulse Ox 96% on R/A; ss7 17:00 BP 123 / 63; Pulse 67; Resp 18; Pulse Ox 100% on R/A; ss7 18:30 BP 147 / 79; Pulse 70; Resp 18; Pulse Ox 99% on R/A; ss7 21:06 BP 147 / 79; Pulse 69; Resp 16; Pulse Ox 98% on R/A; sm5 12:15 Body Mass Index 28.84 (76.20 kg, 162.56 cm) jg9 NIH Stroke Scale Scores: 12:15 NIHSS Score: 4 jg9 13:16 NIHSS Score: 6 lr4 ED Course: 12:09 Patient arrived in ED. kz 12:16 Sophia Steinberg MD is Attending Physician. ma2 12:24 CT Stroke Brain w/o Contrast In Process Unspecified. EDMS 12:33 Stroke CXR 1 View In Process Unspecified. EDMS 12:37 Elaine Camarena, RN is Primary Nurse. jg9 12:40 Triage completed. jg9 12:46 Arm band placed on right wrist. jg9 13:10 Rosangela Jeong, NAYELI is Primary Nurse. lr4 13:10 Urine --Ancillary (enter results) Sent. lr4 13:11 UDS Sent. lr4 13:13 Inserted saline lock: 20 gauge in right forearm, using aseptic technique. lr4 13:14 Patient has correct armband on for positive identification. Bed in low position. Call lr4 light in reach. Side rails up X2. Adult w/ patient. flight coordinator on. Pulse ox on. NIBP on. Door closed. Noise minimized. 13:34 No provider procedures requiring assistance completed. lr4 14:28 Prince Zarco MD is Hospitalizing Provider. ma2 18:32 COVID-19 SARS RT PCR (Document "Date of Onset" if Symptomatic) Sent. lr4 20:46 Pto to room 206 via wheelchair with all personal effects, vss, resp even and unlabored, sm5 transport pending nurse call back. 21:06 Report given to naldo Gonzalez awaiting transport to room in [facility]. ss7 Administered Medications: 13:58 Drug: Aspirin 325 mg Route: PO; lr4 15:03 Follow up: Response: No adverse reaction lr4 Point of Care Testing: Blood Glucose: 13:12 Blood Glucose: 114 mg/dL; lr4 Ranges: Outcome: 14:28 Decision to Hospitalize by Provider. ma2 21:05 Condition: stable sm5 21:07 Patient left the ED. sm5 NIH Stroke Scale - NIH Stroke Score Date: 11/02/2021 Time: 12:15 Total Score = 4 1a. Level of Consciousness (LOC) - 0(Alert) 1b. Level of Consciousness (LOC) (Month \\T\\ Age) - 0(Both) 1c. LOC Commands (Open \\T\\ Closes Eyes/Toggler) - 0(Both) 2. Best Gaze (Lateral Gaze Paresis) - 0(Normal) 3. Visual Field Loss - 0(No visual loss) 4. Facial Palsy - 0(Normal) 5a. Left Arm: Motor (10-second hold) - 0(No drift) 5b. Right Arm: Motor (10-second hold) - 2(Drift, some effort against gravity) 6a. Left Leg: Motor (5-second hold - always test supine) - 0(No drift) 6b. Right Leg: Motor (5-second hold - always test supine) - 2(Drift, some effort against gravity) 7. Limb Ataxia (finger/nose \\T\\ heel/hein - test with eyes open) - 0(Absent) 8. Sensory Loss (pinprick arms/legs/face) - 0(Normal) 9. Best Language: Aphasia (description/naming/reading) - 0(No aphasia) 10. Dysarthria (speech clarity - read or repeat words) - 0(Normal) 11. Extinction and Inattention (visual/tactile/auditory/spatial/personal) - 0(No abnormality) Initials: jg9 NIH Stroke Scale - NIH Stroke Score Date: 11/02/2021 Time: 13:16 Total Score = 6 1a. Level of Consciousness (LOC) - 0(Alert) 1b. Level of Consciousness (LOC) (Month \\T\\ Age) - 0(Both) 1c. LOC Commands (Open \\T\\ Closes Eyes/Toggler) - 0(Both) 2. Best Gaze (Lateral Gaze Paresis) - 0(Normal) 3. Visual Field Loss - 0(No visual loss) 4. Facial Palsy - 1(Minor Paralysis) 5a. Left Arm: Motor (10-second hold) - 0(No drift) 5b. Right Arm: Motor (10-second hold) - 1(Drift) 6a. Left Leg: Motor (5-second hold - always test supine) - 0(No drift) 6b. Right Leg: Motor (5-second hold - always test supine) - 2(Drift, some effort against gravity) 7. Limb Ataxia (finger/nose \\T\\ heel/hein - test with eyes open) - 1(Present in one limb) 8. Sensory Loss (pinprick arms/legs/face) - 0(Normal) 9. Best Language: Aphasia (description/naming/reading) - 0(No aphasia) 10. Dysarthria (speech clarity - read or repeat words) - 1(Mild to Moderate) 11. Extinction and Inattention (visual/tactile/auditory/spatial/personal) - 0(No abnormality) Initials: lr4 Signatures: Dispatcher [employer] EDMS Amanda Delgado, RN Sophia Moore MD MD co2 Torie Tamayo RN RN sm5 Elaine Camarena RN RN jg9 Mary Rushing RN RN ss7 Rosangela Jeong RN RN lr4 Lizett Aguero
--- NOTE | 2021-11-02 14:29 | EDPHYS ---
Physician Documentation [facility] Name: Sunita Donohue Age: 55 yrs Sex: Female : 1965 Arrival Date: 11/02/2021 Time: 12:09 Bed 26 Private MD: ED Physician Sophia Steinberg HPI: 11/02 14:25 This 55 yrs old Female presents to ER via Wheelchair with complaints of Weakness - ma2 right side. 14:25 The patient presents to the emergency department with weakness of the. Onset: The ma2 symptoms/episode began/occurred gradually, 3 day(s) ago. Associated signs and symptoms: Pertinent negatives: dizziness, headache, neck stiffness, paresthesias, syncope, loss of vision. 55-year-old female with gradual right-sided weakness for 3 days, patient said that she never had that before. Has history of CHF diabetes hypertension. No headache or facial symptoms.. 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 - Social history:: Smoking status: Patient reports the use of cigarette tobacco products, smokes one-half pack cigarettes per day. - Family history:: not pertinent. ROS: 14:25 Constitutional: Negative for fever, chills, and weight loss. ma2 14:25 All other systems are negative. Exam: 14:25 Constitutional: This is a well developed, well nourished patient who is awake, alert, ma2 and in no acute distress. ENT: Nares patent. No nasal discharge, no septal abnormalities noted. Tympanic membranes are normal and external auditory canals are clear. Oropharynx with no redness, swelling, or masses, exudates, or evidence of obstruction, uvula midline. Mucous membranes moist. Neck: Trachea midline, no thyromegaly or masses palpated, and no cervical lymphadenopathy. Supple, full range of motion without nuchal rigidity, or vertebral point tenderness. No Meningismus. Chest/axilla: Normal chest wall appearance and motion. Nontender with no deformity. No lesions are appreciated. Cardiovascular: Regular rate and rhythm with a normal S1 and S2. No gallops, murmurs, or rubs. Normal PMI, no JVD. No pulse deficits. Respiratory: Lungs have equal breath sounds bilaterally, clear to auscultation and percussion. No rales, rhonchi or wheezes noted. No increased work of breathing, no retractions or nasal flaring. Abdomen/GI: Soft, non-tender, with normal bowel sounds. No distension or tympany. No guarding or rebound. No evidence of tenderness throughout. Back: No spinal tenderness. No costovertebral tenderness. Full range of motion. Skin: Warm, dry with normal turgor. Normal color with no rashes, no lesions, and no evidence of cellulitis. MS/ Extremity: Pulses equal, no cyanosis. Neurovascular intact. Full, normal range of motion. Neuro: Strength is 3 out of 5 on both right upper and lower extremity, otherwise wake and alert, GCS 15, oriented to person, place, time, and situation. Cranial nerves II-XII grossly intact. Motor strength 5/5 in both left upper and lower extremities. Sensory grossly intact. Cerebellar exam normal. Normal gait. Vital Signs: 12:15 BP 105 / 69; Pulse 73; Resp 17 S; Temp 97.3(TE); Pulse Ox 98% on R/A; Weight 76.2 kg jg9 (R); Height 5 ft. 4 in. (162.56 cm) (R); 14:11 BP 126 / 65; Pulse 63; Resp 18; Pulse Ox 100% on R/A; lr4 15:15 BP 132 / 99; Pulse 69; Resp 18; Pulse Ox 96% on R/A; ss7 16:00 BP 133 / 70; Pulse 79; Resp 18; Pulse Ox 96% on R/A; ss7 17:00 BP 123 / 63; Pulse 67; Resp 18; Pulse Ox 100% on R/A; ss7 18:30 BP 147 / 79; Pulse 70; Resp 18; Pulse Ox 99% on R/A; ss7 21:06 BP 147 / 79; Pulse 69; Resp 16; Pulse Ox 98% on R/A; sm5 12:15 Body Mass Index 28.84 (76.20 kg, 162.56 cm) jg9 NIH Stroke Scale Scores: 12:15 NIHSS Score: 4 jg9 13:16 NIHSS Score: 6 lr4 MDM: 12:17 Patient medically screened. [facility] 14:25 Data reviewed: vital signs, nurses notes. Counseling: I had a detailed discussion with maSwetha the patient and/or guardian regarding: the historical points, exam findings, and any diagnostic results supporting the discharge/admit diagnosis, the presence of at least one elevated blood pressure reading (>120/80) during this emergency department visit, the need for outpatient follow up. Response to treatment: the patient's symptoms have markedly improved after treatment. ED course: Discussed with Dr. Richey, he advised this is unlikely acute stroke as patient had gradual symptom of weakness over 3 days, and CT head is unremarkable. He will see the patient. Advised to admit patient.. 11/02 12:19 Order name: Amylase, Serum; Complete Time: 13:16 ma2 11/02 12:19 Order name: Basic Metabolic Panel; Complete Time: 13:16 ma2 11/02 12:19 Order name: CBC with Diff; Complete Time: 13:16 ma2 11/02 12:19 Order name: Ckmb; Complete Time: 13:16 ma2 11/02 12:19 Order name: Hepatic Function; Complete Time: 13:16 ma2 11/02 12:19 Order name: Lipase; Complete Time: 13:16 ma2 11/02 12:19 Order name: Magnesium; Complete Time: 13:16 ma2 11/02 12:19 Order name: Protime (+inr); Complete Time: 13:16 ma2 11/02 12:19 Order name: Ptt, Activated; Complete Time: 13:16 ma2 11/02 12:19 Order name: UDS; Complete Time: 13:55 ma2 11/02 12:58 Order name: Glucose, Ancillary Testing; Complete Time: 13:16 EDMS 11/02 13:07 Order name: Urine Dipstick-Ancillary; Complete Time: 13:16 EDMS 11/02 13:09 Order name: Urine --Ancillary (enter results); Complete Time: 13:55 11/02 18:16 Order name: COVID-19 SARS RT PCR (Document "Date of Onset" if Symptomatic) bd 11/02 12:19 Order name: CT Stroke Brain w/o Contrast; Complete Time: 13:16 nc2 11/02 12:19 Order name: Stroke CXR 1 View; Complete Time: 13:16 nc2 11/02 12:19 Order name: EKG; Complete Time: 12:19 nc2 11/02 12:19 Order name: Accucheck; Complete Time: 13:10 nc2 11/02 12:19 Order name: Cardiac monitoring; Complete Time: 13:10 nc2 11/02 12:19 Order name: EKG - Nurse/Tech; Complete Time: 13:10 nc2 11/02 12:19 Order name: IV Saline Lock; Complete Time: 13:10 nc2 11/02 12:19 Order name: Labs collected and sent; Complete Time: 13:10 nc2 11/02 12:19 Order name: NPO; Complete Time: 13:10 nc2 11/02 12:19 Order name: O2 Per Protocol; Complete Time: 13:10 nc2 11/02 12:19 Order name: O2 Sat Monitoring; Complete Time: 13:11 nc2 11/02 12:19 Order name: Stroke Swallow Screen; Complete Time: 13:11 nc2 11/02 15:31 Order name: Physical Therapy Consult [facility] 11/02 15:31 Order name: Echo with Doppler [facility] 11/02 20:19 Order name: SARS-COV-2 RT PCR [facility] Administered Medications: 13:58 Drug: Aspirin 325 mg Route: PO; lr4 15:03 Follow up: Response: No adverse reaction lr4 Point of Care Testing: Blood Glucose: 13:12 Blood Glucose: 114 mg/dL; lr4 Ranges: Critical Glucose Levels:Adult <50 mg/dl or >400 mg/dl <40 mg/dl or >180 mg/dl Disposition Summary: 11/02/21 14:28 Hospitalization Ordered Hospitalization Status: Inpatient Admission [facility] Provider: Prince laverne Zarco Location: Telemetry/MedSur (Inpatient) ma2 Condition: Stable ma2 Problem: new ma2 Symptoms: are unchanged nc2 Bed/Room Type: Standard [facility] Room Assignment: 206(11/02/21 20:06) cg Diagnosis - Weakness - Right upper and lower extremities [facility] Forms: - Medication Reconciliation Form ma2 - SBAR form nc2 NIH Stroke Scale - NIH Stroke Score Date: 11/02/2021 Time: 12:15 Total Score = 4 1a. Level of Consciousness (LOC) - 0(Alert) 1b. Level of Consciousness (LOC) (Month \\T\\ Age) - 0(Both) 1c. LOC Commands (Open \\T\\ Closes Eyes/Defensive Driving Instructor) - 0(Both) 2. Best Gaze (Lateral Gaze Paresis) - 0(Normal) 3. Visual Field Loss - 0(No visual loss) 4. Facial Palsy - 0(Normal) 5a. Left Arm: Motor (10-second hold) - 0(No drift) 5b. Right Arm: Motor (10-second hold) - 2(Drift, some effort against gravity) 6a. Left Leg: Motor (5-second hold - always test supine) - 0(No drift) 6b. Right Leg: Motor (5-second hold - always test supine) - 2(Drift, some effort against gravity) 7. Limb Ataxia (finger/nose \\T\\ heel/hein - test with eyes open) - 0(Absent) 8. Sensory Loss (pinprick arms/legs/face) - 0(Normal) 9. Best Language: Aphasia (description/naming/reading) - 0(No aphasia) 10. Dysarthria (speech clarity - read or repeat words) - 0(Normal) 11. Extinction and Inattention (visual/tactile/auditory/spatial/personal) - 0(No abnormality) Initials: jg9 NIH Stroke Scale - NIH Stroke Score Date: 11/02/2021 Time: 13:16 Total Score = 6 1a. Level of Consciousness (LOC) - 0(Alert) 1b. Level of Consciousness (LOC) (Month \\T\\ Age) - 0(Both) 1c. LOC Commands (Open \\T\\ Closes Eyes/Defensive Driving Instructor) - 0(Both) 2. Best Gaze (Lateral Gaze Paresis) - 0(Normal) 3. Visual Field Loss - 0(No visual loss) 4. Facial Palsy - 1(Minor Paralysis) 5a. Left Arm: Motor (10-second hold) - 0(No drift) 5b. Right Arm: Motor (10-second hold) - 1(Drift) 6a. Left Leg: Motor (5-second hold - always test supine) - 0(No drift) 6b. Right Leg: Motor (5-second hold - always test supine) - 2(Drift, some effort against gravity) 7. Limb Ataxia (finger/nose \\T\\ heel/hein - test with eyes open) - 1(Present in one limb) 8. Sensory Loss (pinprick arms/legs/face) - 0(Normal) 9. Best Language: Aphasia (description/naming/reading) - 0(No aphasia) 10. Dysarthria (speech clarity - read or repeat words) - 1(Mild to Moderate) 11. Extinction and Inattention (visual/tactile/auditory/spatial/personal) - 0(No abnormality) Initials: lr4 Signatures: Dispatcher [employer] Missy Schmidt, RN RN Sophia Dias MD MD ma2 Elaine Camarena RN RN jg9 Rosangela Jeong RN RN lr4 Corrections: (The following items were deleted from the chart) 20:06 14:28 laverne ingram
--- NOTE | 2021-11-02 15:27 | P.HP ---
Certification for Inpatient Patient admitted to: Observation With expected LOS: <2 Midnights Practitioner: I am a practitioner with admitting privileges, knowledge of patient current condition, hospital course, and medical plan of care. Services: Services provided to patient in accordance with Admission requirements found in Title 42 Section 412.3 of the Code of Federal Regulations Patient History Date of Service: 11/02/21 Reason for admission: R sided weakness History of Present Illness: Patient is a 55 year old female with a PMH of HTN, TYPE II diabetes mellitus and CHF. She presents to the ER accompanied by her sister for evaluation of weakness. Patient is reporting an acute onset of right sided upper and lower extremity weakness. Her symptoms started less than 24 hours prior to presentation. Sister suspect that her speech was slurred today. This is the reason why they decided to present to the ER. Denies any history of recent falls. Allergies No Known Allergy (Uncoded 09/24/18 21:33) Unknown No Known Al Allergy (Uncoded 04/18/17 18:14) Unknown No Known All Allergy (Uncoded 04/19/17 23:26) Unknown Home Medications: Metformin HCl 500 mg PO DAILY #30 tablet 09/27/18 Metoclopramide HCl [Reglan] 5 mg PO TIDWM #60 tablet 09/27/18 lisinopriL [Lisinopril] 20 mg PO DAILY #30 tablet 09/27/18 Pantoprazole [Protonix Tab*] 40 mg PO BIDAC #60 tab 09/30/18 - Past Medical/Surgical History Diabetic: Yes -: HTN -: diabetes mellitus II -: tubal ligation - Family History Mother -: Hypertension, Diabetes Father -: Hypertension, Diabetes - Social History Alcohol use: No CD- Drugs: No Caffeine use: Yes Physical Examination - Physical Exam General: Alert, In no apparent distress, Cooperative HEENT: Atraumatic, Normocephalic Neck: Supple Respiratory: Clear to auscultation bilaterally, Normal air movement Cardiovascular: No edema, Regular rate/rhythm, Normal S1 S2 Gastrointestinal: Soft and benign, Non-distended Neurological: Normal affect, Other (Right-sided weakness) - Studies Laboratory Data (last 24 hrs) 11/02/21 12:30: PT 11.9, INR 1.03, APTT 33.5 11/02/21 12:30: WBC 10.20, Hgb 14.5, Hct 43.6, Plt Count 356 11/02/21 12:30: Sodium 139, Potassium 4.1, BUN 32 H, Creatinine 0.74, Glucose 146 H, Magnesium 2.0, Total Bilirubin 0.6, AST 25, ALT 36, Alkaline Phosphatase 122 H, Amylase 43, Lipase 50 L Assessment and Plan - Problems (Diagnosis) (1) Diabetes mellitus Onset Date: 09/25/18 Current Visit: No Status: Acute Qualifiers: Diabetes mellitus type: type 2 Diabetes mellitus [facility] insulin use: without [facility] use Diabetes mellitus complication status: with unspecified complications (2) HTN (hypertension) Onset Date: 09/25/18 Current Visit: No Status: Acute Qualifiers: Hypertension type: essential hypertension Qualified Code(s): I10 - Essential (primary) hypertension (3) Obesity Current Visit: No Status: Acute - Advance Directives Does patient have a Living Will: No Does patient have a Durable POA for Healthcare: No Physician Review Additional Text: Assessment Patient is a 55-year-old female who is currently being admitted for stroke work-up after she presented with acute onset of right-sided weakness. Her CT head was unremarkable for acute stroke. Right-sided weakness Hypertension Type 2 diabetes mellitus Hyperlipidemia Plan: Admit under observation with telemetry I will obtain a brain MRI and carotid Doppler Also obtain a 2D echo Follow-up lipid panel and hemoglobin A1c PT/OT ordered Patient can be discharged tomorrow if above work-up is negative.
[2021-11-02] MEDS ORDERED: GLUCAGON 1 MG/VIAL IM PRN (21:24)
[2021-11-02] MEDS ORDERED: D50W 25 GM/50 ML SYRINGE IV PRN (21:24)
[2021-11-02 22:18] VITALS: BMI 29.0
[2021-11-03] MEDS: INSULIN -REGULAR HUMAN 50 UNIT/0.5 ML ML SQ SCH ×4 (07:30→20:44)
[2021-11-03] MEDS ORDERED: INFLUENZA VACCINE (for 6+ mo) 0.5 ML DOSE IMVAC ONE (08:00)
[2021-11-03] MEDS ORDERED: PNEUMOCOCCAL VACCINE 0.5 ML IMVAC ONE (08:00)
--- NOTE | 2021-11-03 08:25 | RAD REPORT ---
EXAM DESCRIPTION: US - CP - 11/03/2021 12:11 am CLINICAL HISTORY: r/o cva Headache, drowsiness COMPARISON: No comparisons TECHNIQUE: Real-time sonographic evaluation of both carotid systems was performed. Doppler interroga tion was performed with waveform tracing bilaterally. FINDINGS: Normal high resistance waveforms are noted in both external carotid arteries. The common c arotid arteries and internal carotid arteries show normal low resistance waveforms. Soft plaque is no delaney right mid common carotid artery extending to right distal common carotid artery. Soft plaque is a lso noted left mid to distal common carotid artery. Mild to moderate mixed plaque is seen in both carotid bulbs. Peak systolic and end diastolic velocity values and the ICA/CCA ratios are in the non-hemodynamically significant range. Antegrade flow seen in both vertebral arteries. IMPRESSION: Mild to moderate mixed plaque is seen both carotid bulbs. No evidence of a hemodynamically significant stenosis.
--- NOTE | 2021-11-03 08:30 | RAD REPORT ---
EXAM DESCRIPTION: MRI - Brain Wo Cont - 11/03/2021 7:43 am CLINICAL HISTORY: r/o cva Headache, drowsiness, CVA symptomology COMPARISON: Ct Stroke Brain Wo Cont dated 11/02/2021 TECHNIQUE: Multi-sequence, multiplanar MR imaging of the brain was performed without contrast. FINDINGS: No intracranial hemorrhage, hydrocephalus or extra-axial fluid collections. No edema or sh ift of midline structures. No findings to suspect brain mass.Several small old infarcts are noted ant erior basal ganglia. There is nonhemorrhagic 8 x 7 mm acute infarct noted in the lisandra. Midline structures are normally formed. Mild fluid is seen in both mastoid air cells. IMPRESSION: 8 x 7 mm acute infarct is noted in the lisandra, just to the left of midline. No hemorrhage or midline shift is evident.
[2021-11-03] MEDS: HOME MED 1 EA UNK (Dapagliflozin Propanediol [Farxiga] 5 MG Tablet) PO SCH (09:00)
[2021-11-03] MEDS ORDERED: HOME MED 1 EA UNK (Omeprazole [Omeprazole] 20 MG Capsule.Dr) PO SCH (09:00)
[2021-11-03] MEDS: ASPIRIN EC 81 MG TAB PO SCH (09:32)
[2021-11-03] MEDS: PANTOPRAZOLE 40MG TABLET PO SCH (09:32)
[2021-11-03 12:29] VITALS: O2SAT 16
--- NOTE | 2021-11-03 12:31 | P.PN ---
Subjective Date of Service: 11/03/21 Primary Care Provider: Jordy Chief Complaint: R sided weakness Subjective: No new changes (Patient has difficulty ambulating with a walker) Review of Systems 10-point ROS is otherwise unremarkable General: Weakness Physical Examination - Vital Signs Temperature: 97.0 F Blood Pressure: 157/79 Pulse: 67 Respirations: 14 Pulse Ox (%): 100 - Physical Exam General: Alert, In no apparent distress HEENT: Atraumatic, PERRLA, EOMI Neck: Supple, JVD not distended Respiratory: Clear to auscultation bilaterally, Normal air movement Cardiovascular: Regular rate/rhythm, Normal S1 S2 Gastrointestinal: Normal bowel sounds, No tenderness Musculoskeletal: No tenderness Integumentary: No rashes Neurological: Normal speech, Normal tone, Normal affect Lymphatics: No axilla or inguinal lymphadenopathy - Studies Laboratory Data (last 24 hrs) 11/03/21 05:37: Triglycerides 100, Cholesterol 211 H, HDL Cholesterol 35 L, Cholesterol/HDL Ratio 6.03 11/02/21 12:30: PT 11.9, INR 1.03, APTT 33.5 11/02/21 12:30: WBC 10.20, Hgb 14.5, Hct 43.6, Plt Count 356 11/02/21 12:30: Sodium 139, Potassium 4.1, BUN 32 H, Creatinine 0.74, Glucose 146 H, Magnesium 2.0, Total Bilirubin 0.6, AST 25, ALT 36, Alkaline Phosphatase 122 H, Amylase 43, Lipase 50 L Assessment And Plan - Current Problems (Diagnosis) (1) CVA (cerebral vascular accident) Current Visit: Yes Status: Acute Plan: left lisandra stroke. She is not ambulating well. The patient is to be seen by Dr. Richey. Will consult social media executive. She had difficulty ambulating the length of the hallway. Will see about in patient vs outpatient rehab. Qualifiers: Laterality of affected vessel: left (2) Diabetes mellitus Onset Date: 09/25/18 Current Visit: No Status: Acute Plan: restart farxiga and start a sliding scale. She is on a diabetic diet. Qualifiers: Diabetes mellitus type: type 2 Diabetes mellitus intermediate insulin use: without intermediate use Diabetes mellitus complication status: with unspecified complications (3) HTN (hypertension) Onset Date: 09/25/18 Current Visit: No Status: Acute Plan: restart home medications. Consider doc and arbs Qualifiers: Hypertension type: primary hypertension Qualified Code(s): I10 - Essential (primary) hypertension Discharge Plan: Home Plan to discharge in: 24 Hours - Code Status/Comfort Care Code Status Assessed: No Physician Review: Patient Assessed, Agree with Above Assessment and Plan Critical Care: No Time Spent Managing PTS Care (In Minutes): 20
[2021-11-03] MEDS ORDERED: D50W 25 GM/50 ML SYRINGE IV PRN (12:32)
[2021-11-03] MEDS ORDERED: GLUCAGON 1 MG/VIAL IM PRN (12:32)
[2021-11-03] MEDS ORDERED: D10W 250 ML IV PRN (12:43)
[2021-11-03] MEDS: CLOPIDOGREL 75 MG TABLET PO SCH (13:08)
[2021-11-03] MEDS: FOLIC ACID 1 MG TABLET PO SCH (13:08)
[2021-11-03] MEDS ORDERED: ATORVASTATIN 80 MG TAB PO SCH (21:00)
[2021-11-03] MEDS ORDERED: BISMUTH SUBSALICYL 262MG/15ML-240 ML BTL PO PRN (21:12)
[2021-11-03] MEDS ORDERED: ACETAMINOPHEN 500 MG TAB PO PRN (21:12)
--- NOTE | 2021-11-04 00:27 | CON ---
Reason For Consultation: Consultation called because of stroke. History Of Present Illness: Ms. Donohue is a 55-year-old right-handed patient with hyperte nsion, dyslipidemia, and diabetes mellitus who comes to [facility] after onset of right-side d weakness in the upper and lower extremities earlier this week, around Sunday, but she did not come to the hospital until actually more than 24 hours after onset of symptoms. She did have along with the weakness, slurred speech and some difficulty getting some words out. At [facility], she had a head CT scan done at 12:23 p.m. Her arrival time in the emergency room was 12:09 p.m. and ons et of her symptoms was around 2 days prior to coming to the hospital. Head CT scan, however, did not show any acute ischemic or hemorrhagic changes. Her subsequent brain MRI done today, the following day, shows an 8 x 7 mm acute infarct in the left midline pontine region. There is no hemorrhagic tra nsformation. Carotid artery ultrasound shows [id number] mixed plaque in both carotid bulbs, bu t no evidence of hemodynamically significant stenosis. She has not had a MRA of the head and neck. In terms of her deficits, she still has some persistent right upper and lower extremity weakness, whi ch has improved. She was evaluated earlier by Physical Therapy and was able to transfer independentl y, but did require a rolling walker due to a tendency to fall towards the right side. The physical t herapist did recommend inpatient rehabilitation as the patient is a high fall risk. She was treated from her admission with aspirin 81 mg daily, Plavix 75 mg daily, Lipitor 80 mg at bed time, folic acid 1 mg daily, and DVT prophylaxis. Past Medical History: As noted. Allergies: NO KNOWN DRUG ALLERGIES. Home Medications: Metformin 500 mg daily, Reglan 5 mg 3 times daily, lisinopril 20 mg daily, Protoni x 40 mg twice daily. Family History: Hypertension and diabetes in mother. Father also with hypertension and diabetes. Social History: The patient denies alcohol, tobacco, or IV drug use. Review of Systems: Aside from mentioned above, she denies recent fevers, chills, nausea, vomiting, myalgias, arthralgias , headache, weight change, rash, psychiatric complaints, or gastrointestinal or genitourinary issues. Physical Examination: Vital Signs: Blood pressure 136/68, pulse 69, respiratory rate 14-16, temperature 97.4, oxygen satur ation 98% on room air. Weight 168 pounds, height 5 feet 4 inches, BMI 29. General: Ms. Donohue is resting in bed. She is in no acute distress. HEENT: She is normocephalic, atraumatic. Sclerae anicteric. Oropharynx pink and moist. Neck: Supple. Chest: Clear. Heart: Regular. Extremities: No clubbing, cyanosis, or edema. Neurological: She is alert and oriented to person, place, time, and situation. She has no expressiv e or receptive aphasia. She has mild difficulty with lingual and guttural sounds. She does have sub tle weakness of the right nasolabial fold with good excursions. In terms of motor, she has at least 4/5 strength in the right upper and lower extremity compared to 5/5 on the left. Sensation is intact in upper and lower extremities. Coordination intact except for a slight tendency towards dysmetria in the right upper and lower extremities. Gait, she has a tendency to fall to the right when ambulat ing. Assessment: Ms. Donohue is a 55-year-old patient with a left of midline pontine infarct who has resi dual deficits of right-sided weakness, incoordination, unsteady gait, along with mild dysarthria. Sh e was cleared by swallow evaluation at bedside. She has risk factors of hypertension, diabetes, and dyslipidemia. Plan: 1.Aggressive inpatient rehabilitation. 2.Continue medications as indicated of aspirin, Plavix, folic acid, and statin. 3.The patient is instructed on modifications in diet and exercise to decrease the risk of additional strokes. 4.She will be followed in hospital in the rehabilitation unit, if accepted. LILLIAM/NEAL Voice ID: [id number] Report ID: [id number]
[2021-11-04 05:21] LABS: Absolute Lymphocytes (CBC) 4.3 K/uL (0.7-4.9); Hematocrit 40.3 % (36.0-45.0); Lymphocytes % 47.2 % (15.3-44.8); MPV 9.2 fL (7.6-11.3); RBC Red Blood Cell Count 4.69 M/uL (3.86-4.86)
[2021-11-04 05:49] LABS: BUN Blood Urea Nitrogen 31 mg/dL (7-18); Bicarbonate 25 mmol/L (21-32); Glucose Level 163 mg/dL (74-106); HDL Cholesterol 37 mg/dL (40-60); LDL Cholesterol, Calculated 152 (<130); Sodium Level 139 mmol/L (136-145)
--- NOTE | 2021-11-04 06:58 | ECHO ---
HEIGHT: 5 ft 4 in WEIGHT: 168 lb 12.8 oz DATE OF STUDY: 11/03/[address]: Prince Becca Zarco MD 2-DIMENSIONAL: YES M.MODE: YES DOPPLER: YES COLOR FLOW: YES TDS: NO PORTABLE: NO DEFINITY: NO BUBBLE STUDY: NO DIAGNOSIS: CEREBRAL VASCULAR ACCIDENT CARDIAC HISTORY: CATHERIZATION: NO SURGERY: NO PROSTHETIC VALVE: NO PACEMAKER: NO MEASUREMENTS (cm) DIASTOLIC (NORMALS) SYSTOLIC (NORMALS) IVSd 1.0 (0.6-1.2) LA Diam 2.9 (1.9-4.0) LVEF 60% LVIDd 4.5 (3.5-5.7) LVIDs 3.1 (2.0-3.5) %FS 32% LVPWd 1.1 (0.6-1.2) Ao Diam 2.9 (2.0-3.7) 2 DIMENSIONAL ASSESSMENT: RIGHT ATRIUM: NORMAL LEFT ATRIUM: NORMAL RIGHT VENTRICLE: NORMAL LEFT VENTRICLE: NORMAL TRICUSPID VALVE: NORMAL MITRAL VALVE: NORMAL PULMONIC VALVE: NORMAL AORTIC VALVE: NORMAL PERICARDIAL EFFUSION: NONE AORTIC ROOT: NORMAL LEFT VENTRICULAR WALL MOTION: NORMAL. DOPPLER/COLOR FLOW: MILD AORTIC REGURGITATION, MILD TRICUSPID REGURGITAITON. COMMENTS: NORMAL LEFT VENTRICULAR EJECTION FRACTION 55-60%. NORAML WALL MOTION. MILD AORTIC REGURGITATION, MILD TRICUSPID REGURGITATION. TECHNOLOGIST: ROMELIA FRITZ
[2021-11-04] MEDS: INSULIN -REGULAR HUMAN 50 UNIT/0.5 ML ML SQ SCH ×3 (07:30→16:21)
[2021-11-04] MEDS: ASPIRIN EC 81 MG TAB PO SCH (08:45)
[2021-11-04] MEDS: PANTOPRAZOLE 40MG TABLET PO SCH (08:45)
[2021-11-04] MEDS: CLOPIDOGREL 75 MG TABLET PO SCH (08:45)
[2021-11-04] MEDS: FOLIC ACID 1 MG TABLET PO SCH (08:45)
[2021-11-04] MEDS: HOME MED 1 EA UNK (Dapagliflozin Propanediol [Farxiga] 5 MG Tablet) PO SCH (08:46)
[2021-11-04] MEDS ORDERED: METFORMIN HCL 750 MG PO SCH (09:00)
--- NOTE | 2021-11-04 11:45 | P.PN ---
Subjective Date of Service: 11/04/21 Primary Care Provider: Jordy Chief Complaint: R sided weakness Subjective: Ambulating (was able to walk farther with PT today), Improving Review of Systems 10-point ROS is otherwise unremarkable General: Weakness Physical Examination - Vital Signs Temperature: 97.0 F Blood Pressure: 111/70 Pulse: 59 Respirations: 18 Pulse Ox (%): 97 - Physical Exam General: Alert, In no apparent distress HEENT: Atraumatic, PERRLA, EOMI Neck: Supple, JVD not distended Respiratory: Clear to auscultation bilaterally, Normal air movement Cardiovascular: Regular rate/rhythm, Normal S1 S2 Gastrointestinal: Normal bowel sounds, No tenderness Musculoskeletal: No tenderness Integumentary: No rashes Neurological: Normal speech, Normal tone, Normal affect Lymphatics: No axilla or inguinal lymphadenopathy Assessment And Plan - Current Problems (Diagnosis) (1) CVA (cerebral vascular accident) Current Visit: Yes Status: Acute Plan: left lisandra stroke. She is not ambulating well. The patient is to be seen by Dr. Richey. Will consult social services technician. She had difficulty ambulating the length of the hallway. Will see about in patient vs outpatient rehab. 3/4 Plans for placement vs outpatient rehab. Will await notes from PT and social services technician. Continue asa, statin, ACEI. Qualifiers: Laterality of affected vessel: left (2) Diabetes mellitus Onset Date: 09/25/18 Current Visit: No Status: Acute Plan: restart farxiga and start a sliding scale. She is on a diabetic diet. 3/4 Continue metformin and farxiga. Start low dose insulin. consider ozempic as an outpatient Qualifiers: Diabetes mellitus type: type 2 Diabetes mellitus supervisor intermediates insulin use: without care home use Diabetes mellitus complication status: with unspecified complications (3) HTN (hypertension) Onset Date: 09/25/18 Current Visit: No Status: Acute Plan: restart home medications. Consider doc and arbs Qualifiers: Hypertension type: primary hypertension Qualified Code(s): I10 - Essential (primary) hypertension Discharge Plan: Home Plan to discharge in: 24 Hours - Code Status/Comfort Care Code Status Assessed: No Physician Review: Patient Assessed, Agree with Above Assessment and Plan Critical Care: No Time Spent Managing PTS Care (In Minutes): 25
[2021-11-04 17:32] VITALS: BP 112/73; TEMP 97.1
[2021-11-05] MEDS ORDERED: METFORMIN HCL 750 MG PO SCH (08:00)
[2021-11-05] MEDS ORDERED: HOME MED 1 EA UNK (Dapagliflozin Propanediol [Farxiga] 5 MG Tablet) PO SCH (09:00)
[2021-11-05] MEDS ORDERED: lisinopriL 5 MG TAB PO SCH (09:00)
[2021-11-05] MEDS ORDERED: INSULIN GLARGINE 100 UNIT/ML SQ SCH (09:00)
--- NOTE | 2021-11-05 11:00 | P.DS ---
Admission Date: 11/03/21 Discharge Date: 11/04/21 Primary Care Provider: Jordy Disposition: ROUTINE DISCHARGE Discharge Condition: GOOD Reason for Admission: R sided weakness - Problems (1) CVA (cerebral vascular accident) Status: Acute Qualifiers: Laterality of affected vessel: left (2) Diabetes mellitus Onset Date: 09/25/18 Status: Acute Qualifiers: Diabetes mellitus type: type 2 Diabetes mellitus terminal gauger insulin use: w ithout terminal gauger use Diabetes mellitus complication status: with unspecified complications (3) HTN (hypertension) Onset Date: 09/25/18 Status: Acute Qualifiers: Hypertension type: primary hypertension Qualified Code(s): I10 - Essential (primary) hypertension Brief History of Present Illness: Patient was admitted with weakness. Was found to have a left pontine stroke and was admitted to the hospital. Please see the Hospitalist note for the full H& P. Hospital Course: Patient was admitted with weakness. She had a normal CT. However MRI showed a small Pontine stroke. She was started on statin, ACEI, aspirin. Her weakness improved with PT. She chose to go home. disussed the patient with Dr Richey. Would have her follow up in the office Vital Signs/Physical Exam: Temp Pulse Resp BP Pulse Ox 97.1 F 65 18 112/73 99 11/04/21 16:00 11/04/21 16:00 11/04/21 16:00 11/04/21 16:00 11/04/21 16:00 General: Alert, In no apparent distress HEENT: Atraumatic, PERRLA, EOMI Neck: Supple, JVD not distended Respiratory: Clear to auscultation bilaterally, Normal air movement Cardiovascular: Regular rate/rhythm, Normal S1 S2 Gastrointestinal: Normal bowel sounds, No tenderness Musculoskeletal: No tenderness Integumentary: No rashes Neurological: Normal speech, Normal tone, Normal affect Lymphatics: No axilla or inguinal lymphadenopathy Laboratory Data at Discharge: WBC 9.20 K/uL (4.3-10.9) 11/04/21 05:09 Hgb 13.5 g/dL (12.0-15.0) 11/04/21 05:09 Hct 40.3 % (36.0-45.0) 11/04/21 05:09 Plt Count 311 K/uL (152-406) 11/04/21 05:09 PT 11.9 SECONDS (9.5-12.5) 11/02/21 12:30 INR 1.03 11/02/21 12:30 APTT 33.5 SECONDS (24.3-36.9) 11/02/21 12:30 Sodium 139 mmol/L (136-145) 11/04/21 05:09 Potassium 4.0 mmol/L (3.5-5.1) 11/04/21 05:09 BUN 31 mg/dL (7-18) H 11/04/21 05:09 Creatinine 0.60 mg/dL (0.55-1.3) 11/04/21 05:09 Glucose 163 mg/dL (74-106) H 11/04/21 05:09 Magnesium 2.0 mg/dL (1.8-2.4) 11/02/21 12:30 Total Bilirubin 0.6 mg/dL (0.2-1.0) 11/02/21 12:30 AST 25 U/L (15-37) 11/02/21 12:30 ALT 36 U/L (12-78) 11/02/21 12:30 Alkaline Phosphatase 122 U/L (45-117) H 11/02/21 12:30 Triglycerides Cancelled 11/04/21 06:00 Cholesterol Cancelled 11/04/21 06:00 HDL Cholesterol Cancelled 11/04/21 06:00 Cholesterol/HDL Ratio Cancelled 11/04/21 06:00 Amylase 43 U/L (25-115) 11/02/21 12:30 Lipase 50 U/L (73-393) L 11/02/21 12:30 Home Medications: Dapagliflozin Propanediol [Farxiga] 5 mg PO DAILY 11/03/21 Metformin HCl [Metformin HCl ER] 750 mg PO DAILY 11/03/21 Omeprazole 20 mg PO DAILY 11/03/21 Aspirin [Aspirin EC] 81 mg PO BEDTIME 90 Days #90 tablet. 11/04/21 Atorvastatin Calcium [Lipitor] 40 mg PO BEDTIME 90 Days #90 tablet 11/04/21 Folic Acid 1 mg PO DAILY 90 Days #90 tablet 11/04/21 Lisinopril [Zestril] 2.5 mg PO DAILY 90 Days #90 tablet 11/04/21 New Medications: Aspirin [Aspirin EC] 81 mg PO BEDTIME 90 Days #90 tablet. Folic Acid 1 mg PO DAILY 90 Days #90 tablet Atorvastatin Calcium [Lipitor] 40 mg PO BEDTIME 90 Days #90 tablet Lisinopril [Zestril] 2.5 mg PO DAILY 90 Days #90 tablet Diet: ADA Activity: Ad amalia Followup: Jim Richey MD [ASSOCIATE-ACTIVE - CAN ADMIT] - 1-2 Weeks (Call to schedule appointment) Michael Spence MD [Primary Care Provider] - 1 Week (Call to schedule appointment) Physician Review: Patient Assessed, Agree with Above Assessment and Plan Time spent managing pt's care (in minutes): 30
== END 2021-11-04 18:10 | disposition home or self-care (01) | DRG 65 ==
LOC: ER 12:01 → ERHOLD 15:43 → 2ND 20:44 → OBSVTOIN 11-03 08:49
PROVIDERS: ADMIT Internal Medicine; ATTEND Internal Medicine
DX: I63.9 Cerebral infarction, unspecified (principal); I69.351 Hemiplegia and hemiparesis following cerebral infarction affecting right dominant side; I10 Essential (primary) hypertension; E11.8 Type 2 diabetes mellitus with unspecified complications; E66.9 Obesity, unspecified; E78.5 Hyperlipidemia, unspecified; F17.210 Nicotine dependence, cigarettes, uncomplicated; I69.322 Dysarthria following cerebral infarction; R29.704 NIHSS score 4; R47.81 Slurred speech; Z68.29 Body mass index [BMI] 29.0-29.9, adult; Z79.899 Other long term (current) drug therapy; Z98.51 Tubal ligation status; Z79.82 Long term (current) use of aspirin; Z79.84 Long term (current) use of oral hypoglycemic drugs; Z20.822 Contact with and (suspected) exposure to COVID-19
CPT/HCPCS: 36415; 70450; 70551; 71045; 80048; 80061; 80076; 80307; 81003; 81025; 82150; 82553; 82947; 83036; 83690; 83735; 84443; 85025; 85610; 85730; 93005; 93306; 93880; 97110; 97112; 97116; 97161; 97530; 99284; G0378; U0003

== ENCOUNTER 2022-07-25 11:41 | Emergency (ER) | payer OTHER ==
--- OUTSIDE RECORDS SUMMARY | 2022-07-25 11:52 | XMS REPORT | Continuity of Care Document ---
:1965 Author Organization [facility] t Address [address] [place] [address] Care Team Providers Name Role Phone MUSA HOLDEN Primary Care Physician Unavailable LINWOOD MORTON Attending Clinician Unavailable NEFTALI LEVI Attending Clinician Unavailable Neftali Levi Attending Clinician ALIZA TONEY Attending Clinician Unavailable Aliza Toney Attending Clinician Britney Guzmán Attending Clinician BRITNEY GUZMÁN Attending Clinician Unavailable JUANA RODRIGUEZ Attending Clinician Unavailable Juana Rodriguez DO Attending Clinician MUSA HOLDEN Attending Clinician Unavailable Musa Florian Attending Clinician [phone] Doctor Unassigned, [place] Attending Clinician Unavailable Leandro Madrigal DO Attending Clinician Visit, [facility] Nurse Attending Clinician Unavailable MARYBEL CHAVIRA Attending Clinician Unavailable Pcp, Patient Does Not Have A Attending Clinician [phone] TRACEY GARCIA Admitting Clinician Unavailable Tracey Garcia Admitting Clinician MAX GUADALUPE Admitting Clinician Unavailable Max Guadalupe Admitting Clinician JUANA RODRIGUEZ Admitting Clinician Unavailable MARYBEL CHAVIRA Admitting Clinician Unavailable Payers Payer Name Policy Type Policy Number Effective Date Expiration Date S reji [employer] MEDICARE [id number] 2021 ADVANTAGE PPO 00:00:00 [employer] GOLD PLS [id number] 2021 HMO 00:00:00 [place]ICAID OF [place] [id number] 2022 00:00:00 [facility] JIGAR [id number] 2020 PLUS CLASSIC/VALUE 00:00:00 Problems Condition Condition Condition Status Onset Resolution Last Treating Co mments Source Name Details Category Date Date Treatment Clinician Date POSSIBLE POSSIBLE Diagnosis Active 2021-092022-07-05 Memoria PERFORATED PERFORATED 0-21 21:52:00 l ESOPHAGUS ESOPHAGUS 00:00: Herm alberto Active 00 06/23/2022 [facility] GI BLEED GI BLEED Diagnosis Active 2021-092022-06-21 Memoria UPPER UPPER 0-19 04:10:00 l Active 00:00: [place] 06/21/2022 [facility] UPPER UPPER Diagnosis Active 2021-092022-06-30 Mem oria GASTROINTE GASTROINTE 0-19 21:46:00 l STINAL STINAL 00:00: [place] BLEED;ESOP BLEED;ESOP 00 HAGEAL HAGEAL Active 06/21/2022 [facility] VOMITING VOMITING Diagnosis Active 2021-092022-07-04 Memoria BLOOD BLOOD 0-18 21:48:00 l Active 00:00: [place] 06/20/[address] [place] [address] Nausea and Nausea and Disease Active 2019- U nivers vomiting vomiting 4-19 ity of 00:00: [address] Acute Acute Disease Active 2019-0 Univers gastroente gastroente 4-18 it y of ritis ritis 00:00: [place] 00 Medical Branch ANTHONY (acute ANTHONY (acute Disease Active U nivers kidney kidney 3-19 ity of injury) injury) 00:00: [place] 00 Medical Branch DKA DKA Disease Active Univers (diabetic (diabetic 2-18 ity of ketoacidos [place]etoac[place] is[place] is[place] 00 Medical [place] Screening Screening Disease Active Overview: Univers for STD for STD 06-01 Formattin ity o f (sexually (sexually 00:00: [place] of this [place] transmitte transmitte 00 note Me dical d disease) d disease) might be Branch different from the original. ICD10 Diagnosis Term [place] Opener Utility Essential Essential Disease Active Overview: Univers hypertensi hypertensi 06-01 Formattin ity of on on 00:00: g of this [place] 00 note Medical might be Branch different from the original. ICD10 Diagnosis Term [place] Opener Utility Need for Need for Disease Active Unive rs Tdap Tdap 06-01 ity of vaccin[place] vaccin[place] 00 [place] Type 2 Type 2 Disease Active Overview: Univer s diabetes diabetes 06-01 Formattin ity of mellitus mellitus 00:00: g of this [place] as without without 00 note Medical complicati complicati might be Branch ons ons different from the original. ICD10 Diagnosis Term [place] Opener Utility Obesity Obesity Disease Active Overview: Univ ers 06-01 Formattin ity of 00:00: g of this [place] 00 note Medical might be Branch different from the original. ICD10 Diagnosis Term [place] Opener Utility Yeast Yeast Disease Active Univers infection infection 06-01 ity of of the of the 00:00: [place] vagina vagina 00 Medical Branch Acute Acute Problem Active 2022-07-04 Yung ami posthemorr posthemorr 22:14:18 l hagic hagic [place] anemia anemia (disorder) (disorder) Active Problem 07/04/2022 [facility], [facility] Acute Acute Problem Active 2022-07-04 Yung ami urinary urinary 22:14:18 l tract tract [place] infection infection (disorder) (disorder) Active Problem 07/04/2022 [facility], [facility] Diabetes Diabetes Problem Active 2022-07-04 Memoria mellitus mellitus 22:14:18 l (disorder) (disorder) [place] r[place] Active Problem 07/04/2022 [facility] Hypokalemi Hypokalem Problem Active 2022-07-04 Memoria a ia 22:14:18 l (disorder) (disorder) [place] Active Problem 07/04/2022 [facility] Hypophosph Hypophosp Problem Active 2022-07-04 Memoria atemia hatemia 22:14:18 l (disorder) (disorder) [place] Active Problem 07/04/2022 [facility] Moderate Moderate Problem Active 2022-07-04 Memoria protein-ca protein-ca 22:14:18 l christie Oshea malnutriti malnutriti on (weight on (weight for age for age 60-74% of 60-74% of standard) standard) (disorder) (disorder) Active Problem 07/04/2022 [facility] ILLNESS, ILLNESS, Diagnosis Active 2022-06-21 Memoria UNSPECIFIE UNSPECIFIE 04:10:00 l D D Active Day[place] [facility] GASTROINTE GASTROINT Diagnosis Active 2022-06-30 Memoria STINAL ESTINAL 21:46:00 l HEMORRHAGE HEMORRHAGE He rmann , , UNSPECIFIE UNSPECIFIE D D Active [facility] OTHER OTHER Diagnosis Active 2022-06-30 Mem oria SPECIFIED SPECIFIED 21:46:00 l DISEASE OF DISEASE OF He rmann ESOPHAGUS ESOPHAGUS Active [facility] Illness Illness Diagnosis 2022-06-25 Memoria (finding) (finding) 22:47:29 l Diagnosis [place] 06/25/2022 [facility] Allergies, Adverse Reactions, Alerts Allergy Allergy Status Severity Reaction(s) Onset Inactive Treating Comm ents Source Name Type Date Date Clinician NO KNOWN Drug Active Iris ALLERGRONI ward of [facility] Social History Social Habit Start Date Stop Date Quantity Comments Source Social History 2022-06-21 2022-06-21 [facility] Olegario ermalberto 08:35:01 08:35:01 Exposure to 2022-04-07 2022-04-17 Not sure University of SARS-CoV-2 00:00:00 16:10:00 [facility] (event) [place] Alcohol intake 2022-04-17 2022-04-17 0 /d [facility] 00:00:00 00:00:00 [facility] Tobacco use and 2015-06-01 2015-06-01 Smokeless tobacco Un iversity of exposure 00:00:00 00:00:00 non-user [facility] History of 2004-09-03 Cigarette Smoker [facility] of tobacco use 00:00:00 [facility] Sex [birth year] At [birth year] Universit y of 00:00:00 00:00:00 [facility] Smoking Status Start Date Stop Date Source Tobacco smoking status 2022-06-21 08:34:33 Darvin Oshea Ex-smoker 2015-06-01 00:00:00 2015-06-01 00:00:00 [facility] Medications Ordered Filled Start Stop Current Ordering Indication Dosage Frequency Signature Comments Components Source Medication Medication Date Date Medication? Clinician (SIG) Name Name acetaminoph 2021-09 Yes 1,000 mg = Memoria en 500 mg 0-30 2 tab, PO, l oral 18:54: Q6H, PRN [place] tablet. 00 Fever, X 10 day, # 80 tab, 0 Refill(s), Pharmacy: [facility], 162.56, cm, 06/23/22 15:26:00 CDT, Height, 69.001, kg, 06/23/22 15:26:00 CDT, Weight methocarbam 2021-09 Yes 500 mg = 1 Memoria ol 500 mg 0-30 tab, PO, l oral tablet 18:49: TID, X 14 H ermann 00 day, # 42 tab, 0 Refill(s), Pharmacy: [facility], 162.56, cm, 06/23/22 15:26:00 CDT, Height, 69.001, kg, 06/23/22 15:26:00 CDT, Weight ceFAZolin 2 2021-09 Yes IV, Memori a g/20 mL 0-29 Q8H-06, 0 l intravenous 21:18: Refill(s) H ermann solution 00 folic acid 2021-09 Yes 1 mg = 1 Mem oria 1 mg oral 0-29 tab, PO, l tablet 21:18: Daily, # [place] 00 90 tab, 0 Refill(s), Pharmacy: [facility], 162.56, cm, 06/23/22 15:26:00 CDT, Height, 69.001, kg, 06/23/22 15:26:00 CDT, Weight pantoprazol 2021-09 Yes 40 mg = 1 M emoria e 40 mg 0-29 tab, PO, l oral 21:18: Daily, # [place] enteric 00 90 tab, 0 coated Refill(s), tablet Pharmacy: [facility], 162.56, cm, 06/23/22 15:26:00 CDT, Height, 69.001, kg, 06/23/22 15:26:00 CDT, Weight Adult 2021-09 Yes Notes: Memoria Parenteral 0-24 Must use l Nutrition 03:00: 1.2 micron [place] Custom - 00 filter AND Peripheral Lipids (PPN not should not TPN) 2,000 be mL administer ed to patients who are allergic to soy, fish, egg or peanuts. Dextrose 2021-09 Yes 12.5 gm, Memor ia 50% Syringe 0-23 25 mL, l (D50W) 20:52: Route: IVP, Drug Form: INJ, Dosing Weight 69.001, kg, PRN, PRN Blood Glucose Results, Start date: 06/25/22 15:52:00 CDT, Duration: 30 day, Stop date: 07/25/22 14:51:00 BOOKS BINDER, 0 glucagon 2021-09 Yes 1 mg, Memoria 0-23 Route: IM, l 20:52: Drug form: PDR/INJ, PRN, Dosing Weight 69.001, kg, PRN Blood Glucose Results, Start date: 06/25/22 15:52:00 CDT, Duration: 30 day, Stop date: 07/25/22 14:51:00 BOOKS BINDER, 0 insulin 2021-09 Yes Notes: Memoria lispro 0-23 (Same as: l 20:52: Humalog) Roll in palms of hands gently; Do not shake vigorously . WASTE: F/P - Black; E - Municipal Trash Bin Stable for 28 days at room temperatur e. Expires in days from ____Date potassium 2021-09 No Notes: Memori a chloride 0-23 (Same as: l 13:00: KCL) [place] 00 Infuse over 2 hours. Adult 2021-09 No 1 mL, Memoria Parenteral 0-23 Rate: l Nutrition 03:00: Titrate, Herm alberto Standard - Dosing Peripheral Weight (PPN not 69.001, TPN) 1 mL kg, Route: IV, Total Volume: 1 mL, Start Date: 06/24/22 22:00:00 CDT, Duration: 24 hr, Stop date: 06/25/22 21:59:00 CDT, Replace Every: 24 hr Adult 2021-09 No 1 mL, Memoria Parenteral 0-23 Rate: l Nutrition 03:00: Titrate, Herm alberto Custom - Dosing Peripheral Weight (PPN not 69.001, TPN) 1 mL kg, Route: IV, Total Volume: 1 mL, Start Date: 06/24/22 22:00:00 CDT, Duration: 24 hr, Stop date: 06/25/22 21:59:00 CDT, Replace Every: 24 hr Adult 2021-09 No Notes: Memoria Parenteral 0-23 Must use l Nutrition 03:00: 1.2 micron [place] r[place] Custom - filter AND Peripheral Lipids (PPN not should not TPN) 2,000 be mL administer ed to patients who are allergic to soy, fish, egg or peanuts. vancomycin 2021-09 Yes 2000 mg: Me moria 0-22 infuse l 23:00: over 2.5 [place] 00 hours For adult patients only: Round to nearest 250 mg per Medical Staff approval MEDICATION WASTE Product Size: 1000 mg Product Wasted: ___ mg D5LR 1,000 2021-09 No 1,000 mL, Me moria mL 0-22 Rate: 100 l 18:52: ml/hr, Infuse over: 10 hr, Route: IV, Dosing Weight 69.001 kg, Total Volume: 1,000, Start date: 06/24/22 13:52:00 CDT, Duration: 30 day, Stop date: 07/24/22 13:51:00 BOOKS BINDER, BSA: 1.78 m2, 0 D5W 1,000 2021-09 No 1,000 mL, Mem oria mL 0-22 Rate: 125 l 18:09: ml/hr, Infuse over: 8 hr, Route: IV, Dosing Weight 69.001 kg, Total Volume: 1,000, Start date: 06/24/22 13:09:00 CDT, Duration: 30 day, Stop date: 07/24/22 13:08:00 BOOKS BINDER, BSA: 1.78 m2, 0 potassium 2021-09 No Notes: Memori a chloride 0-22 (Same as: l 14:00: KCL) [place] 00 Infuse over 2 hours. folic acid 2021-09 Yes Notes: Memor ia + Sodium 0-22 (Same as: l Chloride 14:00: Folvite) [place] nn 0.9% IV 50 00 mL polyethylen 2021-09 Yes Notes: Yung ami e glycol 0-22 Dissolve l 3350 14:00: in 8 oz of water or juice. (Same as: Miralax) Dilaudid 2021-09 Yes Notes: Memoria 0-22 Same as: l 13:46: Dilaudid [place] 00 Adult 2021-09 No 1 mL, Memoria Parenteral 0-22 Rate: l Nutrition 13:11: Titrate, Herm Dosing Peripheral Weight (PPN not 69.001, TPN) 1 mL kg, Route: IV, Total Volume: 1 mL, Start Date: 06/24/22 8:11:00 CDT, Duration: 24 hr, Stop date: 06/25/22 8:10:00 CDT vancomycin 2021-09 No 2000 mg: Me moria 0-22 infuse l 11:00: over 2.5 [place] 00 hours senna 2021-09 Yes Notes: Memoria 0-22 (Same as: l 02:00: Senokot) Reglan 2021-09 Yes Notes: Memoria 0-21 (Same as: l 23:00: Reglan) cefepime + 2021-09 Yes Notes: Memor ia sterile 0-21 (Same As: l water 10 mL 21:00: Maxipime) H erm MEDICATION WASTE Product Size: 1000 mg Product Wasted: ___ mg Flagyl 2021-09 Yes Notes: Memoria 0-21 (Same as: l 21:00: Flagyl) [place] Avoid alcohol. vancomycin 2021-09 No 2000 mg: Me moria + Sodium 0-21 infuse l Chloride 21:00: over 2.5 [place] nn 0.9% IV 250 00 hours For mL adult patients only: Round to nearest 250 mg per Medical Staff approval MEDICATION WASTE Product Size: 1000 mg Product Wasted: ___ mg Vancomycin 2021-09 Yes Notes: Memor ia Pharmacy 0-21 Vancomycin l Dosing 20:27: Pharmacy [place] Consult 14 Dosing Protocol PHARMAC Y USE ONLY Note: This is not a medication order. This is a consultati on order. Lactated 2021-09 No 1,000 mL, Yung ami Ringers IV 0-21 Rate: 100 l 1,000 mL 20:23: ml/hr, [place] 00 Infuse over: 10 hr, Route: IV, Dosing Weight 69.001 kg, Total Volume: 1,000, Start date: 06/23/22 15:23:00 CDT, Duration: 2 day, Stop date: 06/25/22 15:22:00 CDT, BSA: 1.78 m2, 0 pantoprazol 2021-09 Yes Notes: For Memoria e additive 0-21 IV push l 80 mg + 20:21: reconstitu Herm alberto Sodium 00 te with 10 Chloride ml 0.9% 0.9% IV 100 sodium mL chloride and push over 2 minutes. (Same as: Protonix) Dextrose 2021-09 Yes 12.5 gm, Memor ia 50% Syringe 0-21 25 mL, l (D50W) 20:18: Route: [place] 00 IVP, Drug Form: INJ, Dosing Weight 69.001, kg, PRN, PRN Blood Glucose Results, Start date: 06/23/22 15:18:00 CDT, Duration: 30 day, Stop date: 07/23/22 14:17:00 BOOKS BINDER, 0 glucagon 2021-09 Yes 1 mg, Memoria 0-21 Route: IM, l 20:18: Drug form: [place] 00 PDR/INJ, PRN, Dosing Weight 69.001, kg, PRN Blood Glucose Results, Start date: 06/23/22 15:18:00 CDT, Duration: 30 day, Stop date: 07/23/22 14:17:00 BOOKS BINDER, 0 ondansetron 2021-09 Yes Notes: Yung ami 0-21 (Same as: l 20:18: Zofran) [place] MEDICATION WASTE Product Size: 4 mg Product Wasted: ___ mg melatonin 2021-09 Yes Notes: Memori a 0-21 (Same as: l 20:18: Melatonin) [place] fluconazole 2021-09 Yes 200 mg = Me moria 0-21 100 mL, l 15:15: IV, [place] 00 [id number], 0 Refill(s) metFORMIN 2021-09 Yes 750 mg = 1 Me moria 750 mg oral 0-19 tab, PO, l tablet, 08:47: Daily, [place] extended 00 with release evening meal, # 30 tab, 0 Refill(s) Saline 2021-09 No Notes: Memoria Flush 0.9% 0-19 (Same as: l 03:29: BD [place] 00 Posiflush) pantoprazol 2021-09 No Notes: For Memoria e 0-19 IV push l 03:29: reconstitu [place] 00 te with 10 ml 0.9% sodium chloride and push over 2 minutes. (Same as: Protonix) pantoprazol 2021-09 No Notes: For Memoria e additive 0-19 IV push l 80 mg + 03:29: reconstitu Herm alberto Sodium 00 te with 10 Chloride ml 0.9% 0.9% IV 100 sodium mL chloride and push over 2 minutes. (Same as: Protonix) octreotide 2021-09 No Notes: Memor ia 0-19 (Same As: l 03:29: SandoSTATI [place] 00 N). Refrigerat e. MEDICATION WASTE Product Size: 100 microgram Product Wasted: ___ microgram octreotide 2021-09 No 99 mL, Memor ia 500 0-19 Rate: 10 l microgram + 03:29: ml/hr, Herm alberto Sodium 00 Infuse Chloride over: 10 0.9% IV 99 hr, Route: mL IV, Dosing Weight 77.273 kg, Total Volume: 100 mL, Start date: 06/20/22 22:29:00 CDT, Duration: 72 hr, Stop date: 06/23/22 22:28:00 CDT, BSA: 1.89 m2, 0 ondansetron 2021-09 No Notes: Yung ami 0-19 (Same as: l 02:08: Zofran) [place] 00 MEDICATION WASTE Product Size: 4 mg Product Wasted: ___ mg ondansetron No 4mg 4 mg, Slow Univers (ZOFRAN 04-17 IV Push, ity of (PF)) 23:00: 23:46 ONCE, 1 [place] injection 4 00 :00 dose, On Medi lamine mg [facility] 04/17/22 at 1800, LISA morpHINE (4 No 4mg 4 mg, Slow Univers mg/mL) 04-17 IV Push, ity of injection 4 23:00: 23:50 [place]CE, 1 [place] mg 00 :00 dose, On Medical [facility] 04/17/22 at 1800, STAT NaCl 0.9% 1000mL at 999 Uni vers (NS) bolus 04-17 mL/hr, ity of infusion 22:45: 23:45 1,000 mL, [place] as 1,000 mL 00 :00 IV Medical Infusion, Branch ONCE, 1 dose, On [facility] 04/17/22 at 1745, LISA ketorolac 30mg 30 mg, Unive rs (TORADOL) 04-17 Slow IV ity of injection 22:15: 22:13 Push, [place] 30 mg 00 :00 ONCE, 1 Medical dose, On Branch [facility] 04/17/22 at 1715, LISA clotrimazol Yes [id number] 1{appli Insert 1 Univers e 1 % 4-23 cator} Applicator ity of vaginal 00:00: into [place] cream 00 vagina at Medical bedtime. [place] clotrimazol Yes [id number] 1{appli Insert 1 Univers e 1 % 4-23 cator} Applicator ity of vaginal 00:00: into [place] cream 00 vagina at Medical bedtime. [place] clotrimazol Yes [id number] 1{appli Insert 1 Univers e 1 % 4-23 cator} Applicator ity of vaginal 00:00: into [place] cream 00 vagina at Medical bedtime. Branch fluconazole 2020- No [id number] 150mg Take 1 Univers (DIFLUCAN) 4-23 05-16 tablet by ity of 150 mg 00:00: 04:59 mouth [place] tablet 00 :00 weekly for Medical 4 doses. Branch fluconazole 2020- No [id number] 150mg Take 1 Univers (DIFLUCAN) 4-23 05-16 tablet by ity of 150 mg 00:00: 04:59 mouth [place] tablet 00 :00 weekly for Medical 4 doses. Branch JARDIANCE Yes Univers 3-05 ity of 00:00: [place] 00 Medical Branch lisinopriL 2020-0 Yes Univers 10 mg 3-05 ity of tablet 00:00: [place] [facility] Branch JARDIANCE 2020-0 Yes Univers 3-05 ity of 00:00: [place] 00 Medical Branch lisinopriL 2020-0 Yes Univers 10 mg 3-05 ity of tablet 00:00: [place] Medical Branch JARDIANCE 2020-0 Yes Univers 3-05 ity of 00:00: [place] 00 Medical Branch lisinopriL 2020-0 Yes Univers 10 mg 3-05 ity of tablet 00:00: [place] 00 [facility] Branch clotrimazol 2019-0 Yes [id number] 1{appli Insert 1 Univers e 1 % 6-24 cator} Applicator ity of vaginal 00:00: into [place] cream 00 vagina at Medical bedtime. Branch clotrimazol 2019-0 Yes [id number] 1{appli Insert 1 Univers e 1 % 6-24 cator} Applicator ity of vaginal 00:00: into [place] cream 00 vagina at Medical bedtime. Branch clotrimazol 2019-0 Yes [id number] 1{appli Insert 1 Univers e 1 % 6-24 cator} Applicator ity of vaginal 00:00: into [place] cream 00 vagina at Medical bedtime. Branch clotrimazol 0 Yes [id number] 1{appli Insert 1 Univers e 1 % 6-24 cator} Applicator ity of vaginal 00:00: into [place] cream 00 vagina at Medical bedtime. Branch clotrimazol 0 Yes [id number] 1{appli Insert 1 Univers e 1 % 6-24 cator} Applicator ity of vaginal 00:00: into [place] cream 00 vagina at Medical bedtime. [place] clotrimazol Yes [id number] 1{appli Insert 1 Univers e 1 % 6-24 cator} Applicator ity of vaginal 00:00: into [place] cream 00 vagina at Medical bedtime. Branch clotrimazol Yes [id number] 1{appli Insert 1 Univers e 1 % 6-24 cator} Applicator ity of vaginal 00:00: into [place] cream 00 vagina at Medical bedtime. Branch fluconazole 2020- No [id number] 150mg Take 1 Univers (DIFLUCAN) 02-24-25 tablet by ity of 150 mg 00:00: 04:59 mouth [place] tablet 00 :00 now for 1 Medical dose. [place] fluconazole 2020- No [id number] 150mg Take 1 Univers (DIFLUCAN) 02-24-25 tablet by ity of 150 mg 00:00: 04:59 mouth [place] tablet 00 :00 now for 1 Medical dose. [place] clotrimazol Yes [id number] 1{appli Insert 1 Univers e 1 % 5-18 cator} Applicator ity of vaginal 00:00: into [place] cream 00 vagina at Medical bedtime. [place] clotrimazol Yes [id number] 1{appli Insert 1 Univers e 1 % 5-18 cator} Applicator ity of vaginal 00:00: into [place] cream 00 vagina at Medical bedtime. [place] clotrimazol Yes [id number] 1{appli Insert 1 Univers e 1 % 5-18 cator} Applicator ity of vaginal 00:00: into [place] cream 00 vagina at Medical bedtime. [place] clotrimazol Yes [id number] 1{appli Insert 1 Univers e 1 % 5-18 cator} Applicator ity of vaginal 00:00: into [place] cream 00 vagina at Medical bedtime. [place] clotrimazol Yes [id number] 1{appli Insert 1 Univers e 1 % 5-18 cator} Applicator ity of vaginal 00:00: into [place] cream 00 vagina at Medical bedtime. Branch clotrimazol Yes [id number] 1{appli Insert 1 Univers e 1 % 5-18 cator} Applicator ity of vaginal 00:00: into [place] cream 00 vagina at Medical bedtime. Branch clotrimazol 2020- No [id number] 1{appli Insert 1 Univers e 1 % 5-18 04-23 cator} Applicator ity o f vaginal 00:00: 00:00 into [place] cream 00 :00 vagina at Medical bedtime. Branch clotrimazol 2020- No [id number] 1{appli Insert 1 Univers e 1 % 5-18 -23 cator} Applicator ity o f vaginal 00:00: 00:00 into [place] cream 00 :00 vagina at Medical bedtime. Branch azithromyci Yes [id number] 250mg Take 1 Univers n 4-25 tablet by ity of (ZITHROMAX 00:00: mouth [place] Z-KANNAN) 250 00 SEE-INSTRU Med ical mg tablet CTIONS. Branch Take 500 mg day 1, then 250 mg days 2 to 5. albuterol Yes [id number] 2{puff} Inhale 2 Univers 90 4-25 Puffs ity of mcg/actuati 00:00: every 4 [place] on inhaler 00 (four) Medical hours as Branch needed for Wheezing or Shortness of Breath. predniSONE Yes [id number] 10mg Take 1 U nivers 10 mg 4-25 tablet by ity of tablet 00:00: mouth [place] 00 daily. Medical Branch azithromyci Yes [id number] 250mg Take 1 Univers n 4-25 tablet by ity of (ZITHROMAX 00:00: mouth [place] Z-KANNAN) 250 00 SEE-INSTRU Med ical mg tablet CTIONS. Branch Take 500 mg day 1, then 250 mg days 2 to 5. albuterol Yes [id number] 2{puff} Inhale 2 Univers 90 4-25 Puffs ity of mcg/actuati 00:00: every 4 [place] as on inhaler 00 (four) Medical hours as Branch needed for Wheezing or Shortness of Breath. predniSONE 2020- Yes [id number] 10mg Take 1 U nivers 10 mg 4-25 tablet by ity of tablet 00:00: mouth [place] 00 daily. Medical Branch azithromyci 2020-0 Yes [id number] 250mg Take 1 Univers n 4-25 tablet by ity of (ZITHROMAX 00:00: mouth [place] Z-KANNAN) 250 00 SEE-INSTRU Med ical mg tablet CTIONS. Branch Take 500 mg day 1, then 250 mg days 2 to 5. albuterol 2020-0 Yes [id number] 2{puff} Inhale 2 Univers 90 4-25 Puffs ity of mcg/actuati 00:00: every 4 [place] on inhaler 00 (four) Medical hours as Branch needed for Wheezing or Shortness of Breath. predniSONE 2020-0 Yes [id number] 10mg Take 1 U nivers 10 mg 4-25 tablet by ity of tablet 00:00: mouth [place] 00 daily. Medical Branch azithromyci 2020-0 Yes [id number] 250mg Take 1 Univers n 4-25 tablet by ity of (ZITHROMAX 00:00: mouth [place] Z-KANNAN) 250 00 SEE-INSTRU Med ical mg tablet CTIONS. Branch Take 500 mg day 1, then 250 mg days 2 to 5. albuterol 2020-0 Yes [id number] 2{puff} Inhale 2 Univers 90 4-25 Puffs ity of mcg/actuati 00:00: every 4 [place] on inhaler 00 (four) Medical hours as Branch needed for Wheezing or Shortness of Breath. predniSONE 2020-0 Yes [id number] 10mg Take 1 U nivers 10 mg 4-25 tablet by ity of tablet 00:00: mouth [place] 00 daily. Medical Branch albuterol 2020-0 Yes [id number] 2{puff} Inhale 2 Univers 90 4-25 Puffs ity of mcg/actuati 00:00: every 4 [place] as on inhaler 00 (four) Medical hours as Branch needed for Wheezing or Shortness of Breath. albuterol 2020-0 Yes [id number] 2{puff} Inhale 2 Univers 90 4-25 Puffs ity of mcg/actuati 00:00: every 4 [place] as on inhaler 00 (four) Medical hours as Branch needed for Wheezing or Shortness of Breath. albuterol 2020-0 Yes [id number] 2{puff} Inhale 2 Univers 90 4-25 Puffs ity of mcg/actuati 00:00: every 4 [place] as on inhaler 00 (four) Medical hours as Branch needed for Wheezing or Shortness of Breath. azithromyci 2020-0 Yes [id number] 250mg Take 1 Univers n 4-25 tablet by ity of (ZITHROMAX 00:00: mouth [place] Z-KANNAN) 250 00 SEE-INSTRU Med ical mg tablet CTIONS. Branch Take 500 mg day 1, then 250 mg days 2 to 5. albuterol 2020-0 Yes [id number] 2{puff} Inhale 2 Univers 90 4-25 Puffs ity of mcg/actuati 00:00: every 4 [place] as on inhaler 00 (four) Medical hours as Branch needed for Wheezing or Shortness of Breath. predniSONE 2020-0 Yes [id number] 10mg Take 1 U nivers 10 mg 4-25 tablet by ity of tablet 00:00: mouth [place] 00 daily. Medical Branch azithromyci 2020-0 Yes [id number] 250mg Take 1 [facility] n 4-25 tablet by ity of (ZITHROMAX 00:00: mouth [place] Z-KANNAN) 250 00 SEE-INSTRU Med ical mg tablet CTIONS. Branch Take 500 mg day 1, then 250 mg days 2 to 5. albuterol 2020-0 Yes [id number] 2{puff} Inhale 2 [facility] 90 4-25 Puffs ity of mcg/actuati 00:00: every 4 [place] on inhaler 00 (four) Medical hours as Branch needed for Wheezing or Shortness of Breath. predniSONE 2020-0 Yes [id number] 10mg Take 1 U nivers 10 mg 4-25 tablet by ity of tablet 00:00: mouth [place] 00 daily. Medical Branch azithromyci 2020-0 Yes [id number] 250mg Take 1 [facility] n 4-25 tablet by ity of (ZITHROMAX 00:00: mouth [place] Z-KANNAN) 250 00 SEE-INSTRU Med ical mg tablet CTIONS. Branch Take 500 mg day 1, then 250 mg days 2 to 5. albuterol 2020-0 Yes [id number] 2{puff} Inhale 2 [facility] 90 4-25 Puffs ity of mcg/actuati 00:00: every 4 [place] on inhaler 00 (four) Medical hours as Branch needed for Wheezing or Shortness of Breath. predniSONE Yes [id number] 10mg Take 1 U nivers 10 mg 4-25 tablet by ity of tablet 00:00: mouth [place] 00 daily. Medical Branch azithromyci 2020- No [id number] 250mg Take 1 [facility] n 4-25 04-23 tablet by ity of (ZITHROMAX 00:00: 00:00 mouth [place] Z-KANNAN) 250 00 :00 SEE-INSTRU Med ical mg tablet CTIONS. Branch Take 500 mg day 1, then 250 mg days 2 to 5. predniSONE 2020- No [id number] 10mg Take 1 [facility] 10 mg 4-25 04-23 tablet by ity of tablet 00:00: 00:00 mouth [place] 00 :00 daily. Medical Branch azithromyci 2020- No [id number] 250mg Take 1 [facility] n 4-25 04-23 tablet by ity of (ZITHROMAX 00:00: 00:00 mouth [place] Z-KANNAN) 250 00 :00 SEE-INSTRU Med ical mg tablet CTIONS. Branch Take 500 mg day 1, then 250 mg days 2 to 5. predniSONE 2020- No [id number] 10mg Take 1 [facility] 10 mg 4-25 04-23 tablet by ity of tablet 00:00: 00:00 mouth [place] 00 :00 daily. Medical Branch metoclopram Yes [id number] 10mg Take 1 [facility] stephany HCl 10 4-20 tablet by ity of mg tablet 00:00: mouth [place] 00 every 6 Medical (six) Branch hours as needed for Nausea and Vomiting (N/V). metoclopram Yes [id number] 10mg Take 1 [facility] stephany HCl 10 4-20 tablet by ity of mg tablet 00:00: mouth [place] 00 every 6 Medical (six) Branch hours as needed for Nausea and Vomiting (N/V). metoclopram Yes [id number] 10mg Take 1 [facility] stephany HCl 10 4-20 tablet by ity of mg tablet 00:00: mouth [place] 00 every 6 Medical (six) Branch hours as needed for Nausea and Vomiting (N/V). metoclopram 2018- Yes [id number] 10mg Take 1 [facility] stephany HCl 10 4-20 tablet by ity of mg tablet 00:00: mouth [place] 00 every 6 Medical (six) Branch hours as needed for Nausea and Vomiting (N/V). metoclopram 2019-0 Yes [id number] 10mg Take 1 [facility] stephany HCl 10 4-20 tablet by ity of mg tablet 00:00: mouth [place] 00 every 6 Medical (six) Branch hours as needed for Nausea and Vomiting (N/V). metoclopram 2019-0 Yes [id number] 10mg Take 1 [facility] stephany HCl 10 4-20 tablet by ity of mg tablet 00:00: mouth [place] 00 every 6 Medical (six) Branch hours as needed for Nausea and Vomiting (N/V). metoclopram 2019-0 Yes [id number] 10mg Take 1 [facility] stephany HCl 10 4-20 tablet by ity of mg tablet 00:00: mouth [place] 00 every 6 Medical (six) Branch hours as needed for Nausea and Vomiting (N/V). metoclopram 2019-0 Yes [id number] 10mg Take 1 [facility] stephany HCl 10 4-20 tablet by ity of mg tablet 00:00: mouth [place] 00 every 6 Medical (six) Branch hours as needed for Nausea and Vomiting (N/V). metoclopram 2019-0 Yes [id number] 10mg Take 1 [facility] stephany HCl 10 4-20 tablet by ity of mg tablet 00:00: mouth [place] 00 every 6 Medical (six) Branch hours as needed for Nausea and Vomiting (N/V). metoclopram 2019-0 Yes [id number] 10mg Take 1 [facility] stephany HCl 10 4-20 tablet by ity of mg tablet 00:00: mouth [place] 00 every 6 Medical (six) Branch hours as needed for Nausea and Vomiting (N/V). metoclopram 2019-0 Yes [id number] 10mg Take 1 [facility] stephany HCl 10 4-20 tablet by ity of mg tablet 00:00: mouth [place] 00 every 6 Medical (six) Branch hours as needed for Nausea and Vomiting (N/V). lactobacill 2019-0 Yes [id number] 1{tbl} Take 1 [facility] us 3-21 tablet by ity of acidophilus 00:00: mouth 2 [place] as 25 million 00 (two) Medical cell -100 times Branch mg captab daily. lactobacill 2019-0 Yes [id number] 1{tbl} Take 1 [facility] us 3-21 tablet by ity of acidophilus 00:00: mouth 2 [place] as 25 million 00 (two) Medical cell -100 times Branch mg captab daily. lactobacill Yes [id number] 1{tbl} Take 1 [facility] us 3-21 tablet by ity of acidophilus 00:00: mouth 2 [place] as 25 million 00 (two) Medical cell -100 times Branch mg captab daily. lactobacill Yes [id number] 1{tbl} Take 1 [facility] us 3-21 tablet by ity of acidophilus 00:00: mouth 2 [place] as 25 million 00 (two) Medical cell -100 times Branch mg captab daily. lactobacill Yes [id number] 1{tbl} Take 1 [facility] us 3-21 tablet by ity of acidophilus 00:00: mouth 2 [place] 25 million 00 (two) Medical cell -100 times Branch mg captab daily. lactobacill Yes [id number] 1{tbl} Take 1 [facility] us 3-21 tablet by ity of acidophilus 00:00: mouth 2 [place] 25 million 00 (two) Medical cell -100 times Branch mg captab daily. lactobacill Yes [id number] 1{tbl} Take 1 [facility] us 3-21 tablet by ity of acidophilus 00:00: mouth 2 [place] 25 million 00 (two) Medical cell -100 times Branch mg captab daily. lactobacill Yes [id number] 1{tbl} Take 1 [facility] us 3-21 tablet by ity of acidophilus 00:00: mouth 2 [place] 25 million 00 (two) Medical cell -100 times Branch mg captab daily. lactobacill Yes [id number] 1{tbl} Take 1 [facility] us 3-21 tablet by ity of acidophilus 00:00: mouth 2 [place] 25 million 00 (two) Medical cell -100 times Branch mg captab daily. lactobacill Yes [id number] 1{tbl} Take 1 [facility] us 3-21 tablet by ity of acidophilus 00:00: mouth 2 [place] 25 million 00 (two) Medical cell -100 times Branch mg captab daily. lactobacill Yes [id number] 1{tbl} Take 1 [facility] us 3-21 tablet by ity of acidophilus 00:00: mouth 2 [place] 25 million 00 (two) Medical cell -100 times Branch mg captab daily. aspirin 81 2018-0 Yes [id number] 81mg Take 1 [facility] mg chewable 2-21 tablet by ity of tablet 00:00: mouth [place] 00 daily. Medical Branch pantoprazol 2019-0 Yes [id number] 40mg Take 1 [facility] e 40 mg EC 2-21 tablet by ity of tablet 00:00: mouth [place] 00 daily. Medical Branch aspirin 81 2018-0 Yes [id number] 81mg Take 1 [facility] mg chewable 2-21 tablet by ity of tablet 00:00: mouth [place] 00 daily. Medical Branch pantoprazol 2019- Yes [id number] 40mg Take 1 [facility] e 40 mg EC 2-21 tablet by ity of tablet 00:00: mouth [place] 00 daily. Medical Branch aspirin 81 2018-0 Yes [id number] 81mg Take 1 [facility] mg chewable 2-21 tablet by ity of tablet 00:00: mouth [place] 00 daily. Medical Branch pantoprazol 2019- Yes [id number] 40mg Take 1 [facility] e 40 mg EC 2-21 tablet by ity of tablet 00:00: mouth [place] 00 daily. Medical Branch aspirin 81 2018- Yes [id number] 81mg Take 1 [facility] mg chewable 2-21 tablet by ity of tablet 00:00: mouth [place] 00 daily. Medical Branch pantoprazol 2019-0 Yes [id number] 40mg Take 1 [facility] e 40 mg EC 2-21 tablet by ity of tablet 00:00: mouth [place] 00 daily. Medical Branch aspirin 81 2018-0 Yes [id number] 81mg Take 1 [facility] mg chewable 2-21 tablet by ity of tablet 00:00: mouth [place] 00 daily. Medical Branch pantoprazol 2019-0 Yes [id number] 40mg Take 1 [facility] e 40 mg EC 2-21 tablet by ity of tablet 00:00: mouth [place] 00 daily. Medical Branch aspirin 81 2019-0 Yes [id number] 81mg Take 1 [facility] mg chewable 2-21 tablet by ity of tablet 00:00: mouth [place] 00 daily. Medical Branch pantoprazol 2019-0 Yes [id number] 40mg Take 1 [facility] e 40 mg EC 2-21 tablet by ity of tablet 00:00: mouth [place] 00 daily. Medical Branch aspirin 81 2018- Yes [id number] 81mg Take 1 [facility] mg chewable 2-21 tablet by ity of tablet 00:00: mouth [place] 00 daily. Medical Branch pantoprazol Yes [id number] 40mg Take 1 [facility] e 40 mg EC 2-21 tablet by ity of tablet 00:00: mouth [place] 00 daily. Medical Branch aspirin 81 0 Yes [id number] 81mg Take 1 [facility] mg chewable 2-21 tablet by ity of tablet 00:00: mouth [place] 00 daily. Medical Branch pantoprazol Yes [id number] 40mg Take 1 [facility] e 40 mg EC 2-21 tablet by ity of tablet 00:00: mouth [place] 00 daily. Medical Branch aspirin 81 Yes [id number] 81mg Take 1 [facility] mg chewable 2-21 tablet by ity of tablet 00:00: mouth [place] 00 daily. Medical Branch pantoprazol Yes [id number] 40mg Take 1 [facility] e 40 mg EC 2-21 tablet by ity of tablet 00:00: mouth [place] 00 daily. Medical Branch aspirin 81 Yes [id number] 81mg Take 1 [facility] mg chewable 2-21 tablet by ity of tablet 00:00: mouth [place] 00 daily. Medical Branch pantoprazol Yes [id number] 40mg Take 1 [facility] e 40 mg EC 2-21 tablet by ity of tablet 00:00: mouth [place] 00 daily. Medical Branch aspirin 81 0 Yes [id number] 81mg Take 1 [facility] mg chewable 2-21 tablet by ity of tablet 00:00: mouth [place] 00 daily. Medical Branch pantoprazol Yes [id number] 40mg Take 1 [facility] e 40 mg EC 2-21 tablet by ity of tablet 00:00: mouth [place] 00 daily. Medical Branch insulin NPH Yes [id number] 14U inject 14 [facility] 100 unit/mL 2-20 Units ity of injection 00:00: under the [place] as 00 skin every Medical morning. Branch insulin NPH Yes [id number] 10U inject 10 [facility] 100 unit/mL 2-20 Units ity of injection 00:00: under the [place] as 00 skin every Medical evening. Branch metoclopram Yes [id number] 10mg Take 1 [facility] stephany HCl 10 2-20 tablet by ity of mg tablet 00:00: mouth [place] 00 every 6 Medical (six) Branch hours as needed for Nausea and Vomiting (N/V). insulin 2018-0 Yes [id number] Use as Uni vers syringe-nee 2-20 directed ity of dle U-100 1 00:00: [place] ml (INSULIN 00 Medical SYRINGE) 1 Branch mL 29 gauge x 1/2" Syrg metformin 2018-0 Yes [id number] 750mg Take 1 [facility] ER 750 mg 2-20 tablet by ity o f 24 hr 00:00: mouth [place] tablet 00 daily with Medical breakfast. Branch atorvastati 0 Yes [id number] 40mg Take 1 [facility] n 40 mg 2-20 tablet by ity of tablet 00:00: mouth at [place] 00 bedtime. Medical Branch insulin NPH 0 Yes [id number] 14U inject 14 [facility] 100 unit/mL 2-20 Units ity of injection 00:00: under the [place] 00 skin every Medical morning. Branch insulin NPH Yes [id number] 10U inject 10 [facility] 100 unit/mL 2-20 Units ity of injection 00:00: under the [place] 00 skin every Medical evening. Branch metoclopram 0 Yes [id number] 10mg Take 1 [facility] stephany HCl 10 2-20 tablet by ity of mg tablet 00:00: mouth [place] 00 every 6 Medical (six) Branch hours as needed for Nausea and Vomiting (N/V). insulin 0 Yes [id number] Use as [facility] vers syringe-nee 2-20 directed ity of dle U-100 1 00:00: [place] ml (INSULIN 00 Medical SYRINGE) 1 Branch mL 29 gauge x 1/2" Syrg metformin 0 Yes [id number] 750mg Take 1 [facility] ER 750 mg 2-20 tablet by ity o f 24 hr 00:00: mouth [place] tablet 00 daily with Medical breakfast. Branch atorvastati 0 Yes [id number] 40mg Take 1 [facility] n 40 mg 2-20 tablet by ity of tablet 00:00: mouth at [place] 00 bedtime. Medical Branch insulin NPH 0 Yes [id number] 14U inject 14 [facility] 100 unit/mL 2-20 Units ity of injection 00:00: under the [place] 00 skin every Medical morning. Branch insulin NPH 0 Yes [id number] 10U inject 10 [facility] 100 unit/mL 2-20 Units ity of injection 00:00: under the [place] 00 skin every Medical evening. Branch metoclopram Yes [id number] 10mg Take 1 [facility] stephany HCl 10 2-20 tablet by ity of mg tablet 00:00: mouth [place] 00 every 6 Medical (six) Branch hours as needed for Nausea and Vomiting (N/V). insulin Yes [id number] Use as [facility] vers syringe-nee 2-20 directed ity of dle U-100 1 00:00: [place] ml (INSULIN 00 Medical SYRINGE) 1 Branch mL 29 gauge x 1/2" Syrg metformin 2018- Yes [id number] 750mg Take 1 [facility] ER 750 mg 2-20 tablet by ity o f 24 hr 00:00: mouth [place] tablet 00 daily with Medical breakfast. Branch atorvastati Yes [id number] 40mg Take 1 [facility] n 40 mg 2-20 tablet by ity of tablet 00:00: mouth at [place] 00 bedtime. Medical Branch insulin NPH Yes [id number] 14U inject 14 [facility] 100 unit/mL 2-20 Units ity of injection 00:00: under the [place] 00 skin every Medical morning. Branch insulin NPH Yes [id number] 10U inject 10 [facility] 100 unit/mL 2-20 Units ity of injection 00:00: under the [place] 00 skin every Medical evening. Branch metoclopram Yes [id number] 10mg Take 1 [facility] stephany HCl 10 2-20 tablet by ity of mg tablet 00:00: mouth [place] 00 every 6 Medical (six) Branch hours as needed for Nausea and Vomiting (N/V). insulin Yes [id number] Use as [facility] vers syringe-nee 2-20 directed ity of dle U-100 1 00:00: [place] ml (INSULIN 00 Medical SYRINGE) 1 Branch mL 29 gauge x 1/2" Syrg metformin 2018-0 Yes [id number] 750mg Take 1 [facility] ER 750 mg 2-20 tablet by ity o f 24 hr 00:00: mouth [place] tablet 00 daily with Medical breakfast. Branch atorvastati Yes [id number] 40mg Take 1 [facility] n 40 mg 2-20 tablet by ity of tablet 00:00: mouth at [place] 00 bedtime. Medical Branch insulin NPH Yes [id number] 14U inject 14 [facility] 100 unit/mL 2-20 Units ity of injection 00:00: under the [place] 00 skin every Medical morning. Branch metoclopram Yes [id number] 10mg Take 1 [facility] stephany HCl 10 2-20 tablet by ity of mg tablet 00:00: mouth [place] 00 every 6 Medical (six) Branch hours as needed for Nausea and Vomiting (N/V). insulin Yes [id number] Use as [facility] vers syringe-nee 2-20 directed ity of dle U-100 1 00:00: [place] ml (INSULIN 00 Medical SYRINGE) 1 Branch mL 29 gauge x 1/2" Syrg metformin Yes [id number] 750mg Take 1 [facility] ER 750 mg 2-20 tablet by ity o f 24 hr 00:00: mouth [place] tablet 00 daily with Medical breakfast. Branch atorvastati Yes [id number] 40mg Take 1 [facility] n 40 mg 2-20 tablet by ity of tablet 00:00: mouth at [place] 00 bedtime. Medical Branch insulin NPH Yes [id number] 14U inject 14 [facility] 100 unit/mL 2-20 Units ity of injection 00:00: under the [place] 00 skin every Medical morning. Branch metoclopram Yes [id number] 10mg Take 1 [facility] stephany HCl 10 2-20 tablet by ity of mg tablet 00:00: mouth [place] 00 every 6 Medical (six) Branch hours as needed for Nausea and Vomiting (N/V). insulin Yes [id number] Use as [facility] vers syringe-nee 2-20 directed ity of dle U-100 1 00:00: [place] ml (INSULIN 00 Medical SYRINGE) 1 Branch mL 29 gauge x 1/2" Syrg metformin Yes [id number] 750mg Take 1 [facility] ER 750 mg 2-20 tablet by ity o f 24 hr 00:00: mouth [place] tablet 00 daily with Medical breakfast. Branch atorvastati Yes [id number] 40mg Take 1 [facility] n 40 mg 2-20 tablet by ity of tablet 00:00: mouth at [place] 00 bedtime. Medical Branch insulin NPH Yes [id number] 14U inject 14 [facility] 100 unit/mL 2-20 Units ity of injection 00:00: under the [place] 00 skin every Medical morning. Branch insulin NPH Yes [id number] 14U inject 14 [facility] 100 unit/mL 2-20 Units ity of injection 00:00: under the [place] 00 skin every Medical morning. Branch metoclopram Yes [id number] 10mg Take 1 [facility] stephany HCl 10 2-20 tablet by ity of mg tablet 00:00: mouth [place] 00 every 6 Medical (six) Branch hours as needed for Nausea and Vomiting (N/V). insulin Yes [id number] Use as [facility] vers syringe-nee 2-20 directed ity of dle U-100 1 00:00: [place] ml (INSULIN 00 Medical SYRINGE) 1 Branch mL 29 gauge x 1/2" Syrg metformin 2018- Yes [id number] 750mg Take 1 [facility] ER 750 mg 2-20 tablet by ity o f 24 hr 00:00: mouth [place] tablet 00 daily with Medical breakfast. Branch atorvastati Yes [id number] 40mg Take 1 [facility] n 40 mg 2-20 tablet by ity of tablet 00:00: mouth at [place] 00 bedtime. Medical Branch insulin NPH Yes [id number] 10U inject 10 [facility] 100 unit/mL 2-20 Units ity of injection 00:00: under the [place] 00 skin every Medical evening. Branch metoclopram Yes [id number] 10mg Take 1 [facility] stephany HCl 10 2-20 tablet by ity of mg tablet 00:00: mouth [place] 00 every 6 Medical (six) Branch hours as needed for Nausea and Vomiting (N/V). insulin Yes [id number] Use as [facility] vers syringe-nee 2-20 directed ity of dle U-100 1 00:00: [place] ml (INSULIN 00 Medical SYRINGE) 1 Branch mL 29 gauge x 1/2" Syrg metformin 2018-0 Yes [id number] 750mg Take 1 [facility] ER 750 mg 2-20 tablet by ity o f 24 hr 00:00: mouth [place] tablet 00 daily with Medical breakfast. Branch atorvastati 2018-0 Yes [id number] 40mg Take 1 [facility] n 40 mg 2-20 tablet by ity of tablet 00:00: mouth at [place] 00 bedtime. Medical Branch insulin NPH Yes [id number] 14U inject 14 [facility] 100 unit/mL 2-20 Units ity of injection 00:00: under the [place] 00 skin every Medical morning. Branch insulin NPH 2018-0 Yes [id number] 10U inject 10 [facility] 100 unit/mL 2-20 Units ity of injection 00:00: under the [place] 00 skin every Medical evening. Branch metoclopram 2019-0 Yes [id number] 10mg Take 1 [facility] stephany HCl 10 2-20 tablet by ity of mg tablet 00:00: mouth [place] 00 every 6 Medical (six) Branch hours as needed for Nausea and Vomiting (N/V). insulin 2018-0 Yes [id number] Use as [facility] vers syringe-nee 2-20 directed ity of dle U-100 1 00:00: [place] ml (INSULIN 00 Medical SYRINGE) 1 Branch mL 29 gauge x 1/2" Syrg metformin 2018-0 Yes [id number] 750mg Take 1 [facility] ER 750 mg 2-20 tablet by ity o f 24 hr 00:00: mouth [place] tablet 00 daily with Medical breakfast. Branch atorvastati Yes [id number] 40mg Take 1 [facility] n 40 mg 2-20 tablet by ity of tablet 00:00: mouth at [place] 00 bedtime. Medical Branch insulin NPH 2018-0 Yes [id number] 14U inject 14 [facility] 100 unit/mL 2-20 Units ity of injection 00:00: under the [place] 00 skin every Medical morning. Branch insulin NPH 2018-0 Yes [id number] 10U inject 10 [facility] 100 unit/mL 2-20 Units ity of injection 00:00: under the [place] 00 skin every Medical evening. Branch metoclopram 2018-0 Yes [id number] 10mg Take 1 [facility] stephany HCl 10 2-20 tablet by ity of mg tablet 00:00: mouth [place] 00 every 6 Medical (six) Branch hours as needed for Nausea and Vomiting (N/V). insulin 2018-0 Yes [id number] Use as [facility] vers syringe-nee 2-20 directed ity of dle U-100 1 00:00: [place] ml (INSULIN 00 Medical SYRINGE) 1 Branch mL 29 gauge x 1/2" Syrg metformin 2019-0 Yes [id number] 750mg Take 1 [facility] ER 750 mg 2-20 tablet by ity o f 24 hr 00:00: mouth [place] tablet 00 daily with Medical breakfast. Branch atorvastati 2019-0 Yes [id number] 40mg Take 1 [facility] n 40 mg 2-20 tablet by ity of tablet 00:00: mouth at [place] 00 bedtime. Medical Branch insulin NPH Yes [id number] 14U inject 14 [facility] 100 unit/mL 2-20 Units ity of injection 00:00: under the [place] 00 skin every Medical morning. Branch insulin NPH Yes [id number] 10U inject 10 [facility] 100 unit/mL 2-20 Units ity of injection 00:00: under the [place] 00 skin every Medical evening. Branch metoclopram Yes [id number] 10mg Take 1 [facility] stephany HCl 10 2-20 tablet by ity of mg tablet 00:00: mouth [place] 00 every 6 Medical (six) Branch hours as needed for Nausea and Vomiting (N/V). insulin Yes [id number] Use as [facility] vers syringe-nee 2-20 directed ity of dle U-100 1 00:00: [place] ml (INSULIN 00 Medical SYRINGE) 1 Branch mL 29 gauge x 1/2" Syrg metformin Yes [id number] 750mg Take 1 [facility] ER 750 mg 2-20 tablet by ity o f 24 hr 00:00: mouth [place] tablet 00 daily with Medical breakfast. Branch atorvastati Yes [id number] 40mg Take 1 [facility] n 40 mg 2-20 tablet by ity of tablet 00:00: mouth at [place] 00 bedtime. Medical Branch insulin NPH 2020- No [id number] 10U inject 10 [facility] 100 unit/mL 2-20 04-23 Units ity of injection 00:00: 00:00 under the [place] 00 :00 skin every Medical evening. Branch insulin NPH 2020- No [id number] 10U inject 10 [facility] 100 unit/mL 2-20 04-23 Units ity of injection 00:00: 00:00 under the [place] 00 :00 skin every Medical evening. Branch clotrimazol Yes [id number] 1{appli Insert 1 [facility] e 06-01 cator} Applicator ity of (CLOTRIMAZO 00:00: into [place] LE-7) 1 % 00 vagina at Medic al vaginal bedtime. [place] cream clotrimazol Yes [id number] 1{appli Insert 1 [facility] e 06-01 cator} Applicator ity of (CLOTRIMAZO 00:00: into [place] LE-7) 1 % 00 vagina at Medic al vaginal bedtime. Branch cream clotrimazol Yes [id number] 1{appli Insert 1 [facility] e 06-01 cator} Applicator ity of (CLOTRIMAZO 00:00: into [place] LE-7) 1 % 00 vagina at Medic al vaginal bedtime. Branch cream clotrimazol Yes [id number] 1{appli Insert 1 [facility] e 06-01 cator} Applicator ity of (CLOTRIMAZO 00:00: into [place] LE-7) 1 % 00 vagina at Medic al vaginal bedtime. Branch cream clotrimazol Yes [id number] 1{appli Insert 1 [facility] e 06-01 cator} Applicator ity of (CLOTRIMAZO 00:00: into [place] LE-7) 1 % 00 vagina at Medic al vaginal bedtime. Branch cream clotrimazol Yes [id number] 1{appli Insert 1 [facility] e 06-01 cator} Applicator ity of (CLOTRIMAZO 00:00: into [place] LE-7) 1 % 00 vagina at Medic al vaginal bedtime. Branch cream clotrimazol Yes [id number] 1{appli Insert 1 [facility] e 06-01 cator} Applicator ity of (CLOTRIMAZO 00:00: into [place] LE-7) 1 % 00 vagina at Medic al vaginal bedtime. Branch cream clotrimazol Yes [id number] 1{appli Insert 1 [facility] e 06-01 cator} Applicator ity of (CLOTRIMAZO 00:00: into [place] LE-7) 1 % 00 vagina at Medic al vaginal bedtime. Branch cream clotrimazol Yes [id number] 1{appli Insert 1 [facility] e 06-01 cator} Applicator ity of (CLOTRIMAZO 00:00: into [place] LE-7) 1 % 00 vagina at Medic al vaginal bedtime. Branch cream clotrimazol Yes [id number] 1{appli Insert 1 [facility] e 06-01 cator} Applicator ity of (CLOTRIMAZO 00:00: into [place] LE-7) 1 % 00 vagina at Medic al vaginal bedtime. Branch cream clotrimazol 2015-0 Yes [id number] 1{appli Insert [address] [facility] e 06-01 cator} Applicator ity of (CLOTRIMAZO 00:00: into [place] LE-7) 1 % 00 vagina at Medic al vaginal bedtime. Branch cream Immunizations Ordered Filled Immunization Date Status Comments Sour e Immunization Name Name [facility] 2015-06-01 Completed [facility] 00:00:00 [facility] [place] [facility] 2015-06-01 Completed [facility] 00:00:00 [facility] [place] [facility] 2015-06-01 Completed [facility] 00[facility]00:00 [facility] [place] [facility] 2015-06-01 Completed [facility] of 00:00:00 [facility] [place] [facility] 2015-06-01 Completed [facility] of 00:00:00 [facility] [place] [facility] 2015-06-01 Completed [facility] of 00:00:00 [facility] [place] [facility] 2015-06-01 Completed [facility] of 00:00:00 [facility] 2015-06-01 Completed [facility] of 00:00:00 [facility] 2015-06-01 Completed [facility] of 00:00:00 [facility] 2015-06-01 Completed [facility] of 00:00:00 [facility] 2015-06-01 Completed [facility] of 00:00:00 [facility] Vital Signs Vital Name Observation Time Observation Value Comments Source Systolic blood 2022-04-17 21:30:00 108 mm[Hg] Univer sity of pressure [facility] Diastolic blood 2022-04-17 21:30:00 77 mm[Hg] Unive rsity of pressure [facility] Heart rate 2022-04-17 21:30:00 74 /min [facility] Respiratory rate 2022-04-17 21:30:00 24 /min [facility] Oxygen saturation in 2022-04-17 21:30:00 97 /min [facility] Arterial blood by [facility] Pulse oximetry Branch Body temperature 2022-04-17 21:14:00 37.33 [facility] 2022-04-17 21:14:00 162.6 cm [facility] Body weight 2022-04-17 21:14:00 78.472 kg [facility] BMI 2022-04-17 21:14:00 29.70 kg/m2 [facility] [place] [facility] Systolic blood 2020-12-24 14:35:00 126 mm[Hg] Univer sity of pressure [place] [facility] Diastolic blood 2020-12-24 14:35:00 79 mm[Hg] Unive rsity of pressure [place] [facility] Heart rate 2020-12-24 14:35:00 72 /min [facility] [place] [facility] Body temperature 2020-12-24 14:35:00 37.28 Joanna [facility] [place] [facility] Respiratory rate 2020-12-24 14:35:00 16 /min [facility] [place] [facility] Body height 2020-12-24 14:35:00 162.6 cm [facility] [place] [facility] Body weight 2020-12-24 14:35:00 81.103 kg [facility] [place] [facility] BMI 2020-12-24 14:35:00 30.69 kg/m2 [facility] [place] [facility] Systolic blood 2020-02-25 18:20:00 139 mm[Hg] Univer sity of pressure [place] [facility] Diastolic blood 2020-02-25 18:20:00 87 mm[Hg] Unive rsity of pressure [place] [facility] Heart rate 2020-02-25 18:20:00 88 /min [facility] Body temperature 2020-02-25 18:20:00 37 Joanna [facility] Respiratory rate 2020-02-25 18:20:00 16 /min [facility] Body height 2020-02-25 18:20:00 162.6 cm [facility] Body weight 2020-02-25 18:20:00 84.879 kg [facility] BMI 2020-02-25 18:20:00 32.12 kg/m2 [facility] Heart rate 2020-01-19 19:44:00 89 /min [facility] Body temperature 2020-01-19 19:44:00 36.5 Joanna [facility] Respiratory rate 2020-01-19 19:44:00 16 /min [facility] Body height 2020-01-19 19:44:00 162.6 cm [facility] Body weight 2020-01-19 19:44:00 83.604 kg [facility] BMI 2020-01-19 19:44:00 31.64 kg/m2 [facility] Systolic blood 2020-01-19 19:44:00 132 mm[Hg] [facility] Diastolic blood 2020-01-19 19:44:00 88 mm[Hg] Unive rsity of pressure [facility] Heart Rate 2022-07-02 16:41:41 [facility] Temperature Oral (F) 2022-07-02 16:41:35 99.3 F [facility] Systolic (mm Hg) 2022-07-02 16:41:28 [facility] [place] Diastolic (mm Hg) 2022-07-02 16:41:28 [facility] [place] Temperature Oral (F) 2022-06-30 21:00:00 97.7 F [facility] Systolic (mm Hg) 2022-06-26 04:00:00 [facility] [place] Diastolic (mm Hg) 2022-06-26 04:00:00 [facility] Respitory Rate 2022-06-26 04:00:00 [facility] [place] Respitory Rate 2022-06-26 03:00:00 [facility] Systolic (mm Hg) 2022-06-26 03:00:00 [facility] [place] Diastolic (mm Hg) 2022-06-26 03:00:00 [facility] Respitory Rate 2022-06-26 02:00:00 [facility] [place] Systolic (mm Hg) 2022-06-26 02:00:00 [facility] [place] Diastolic (mm Hg) 2022-06-26 02:00:00 [facility] Temperature Oral (F) 2022-06-25 21:00:00 97.2 F [facility] Temperature Oral (F) 2022-06-25 17:05:00 97.8 F [facility] Temperature Oral (F) 2022-06-25 13:19:00 97.9 F [facility] Height 2022-06-23 20:26:00 162.56 cm [facility] Weight 2022-06-23 20:26:00 [facility] Height 2022-06-23 19:00:00 5 [ft_i] [facility] Weight 2022-06-23 19:00:00 [facility] BMI Calculated 2022-06-23 19:00:00 [facility] Heart Rate 2022-06-23 16:07:59 [facility] Systolic (mm Hg) 2022-06-23 16:07:38 [facility] [place] Diastolic (mm Hg) 2022-06-23 16:07:38 [facility] Temperature Oral (F) 2022-06-23 16:07:36 99.1 F [facility] Temperature Oral (F) 2022-06-21 21:10:00 97.8 F [facility] Height 2022-06-21 08:42:00 5 [ft_i] [facility] Weight 2022-06-21 08:42:00 [facility] BMI Calculated 2022-06-21 08:42:00 [facility] Systolic (mm Hg) 2022-06-21 06:59:00 [facility] [place] Diastolic (mm Hg) 2022-06-21 06:59:00 [facility] [place] Respitory Rate 2022-06-21 06:59:00 [facility] Respitory Rate 2022-06-21 06:00:00 [facility] [place] Systolic (mm Hg) 2022-06-21 06:00:00 [facility] Diastolic (mm Hg) 2022-06-21 06:00:00 [facility] [place] Respitory Rate 2022-06-21 05:00:00 [facility] [place] Systolic (mm Hg) 2022-06-21 05:00:00 [facility] Diastolic (mm Hg) 2022-06-21 05:00:00 [facility] Heart Rate 2022-06-21 02:58:00 [facility] Heart Rate 2022-06-21 00:55:00 [facility] Height 2022-06-21 00:32:00 162.56 cm [facility] BMI Calculated 2022-06-21 00:32:00 [facility] Weight 2022-06-21 00:32:00 [facility] Temperature Oral (F) 2022-06-21 00:32:00 98.5 F [facility] Heart Rate 2022-06-21 00:32:00 [facility] Procedures Procedure Date / Time Performing Clinician Source Performed XR CHEST 1 VW 2022-04-17 22:08:00 Juana Rodriguez [facility] TROPONIN I 2022-04-17 21:50:00 Juana Rodriguez [facility] COMP. METABOLIC PANEL 2022-04-17 21:50:00 Juana Rodriguez Uni [facility] ([id number]) [facility] CBC WITH DIFF 2022-04-17 21:50:00 Juana Rodriguez [facility] LACTIC ACID WHOLE BLOOD 2022-04-17 21:50:00 Juana Rodriguez U [facility] ASSIGNMENT OF BENEFITS 2020-12-24 14:09:37 Doctor Unassigned, No [facility] Name [facility] BCCS-RELATED 2020-01-16 05:01:00 Doctor Unassigned, No [facility] DOCUMENTATION Name [facility] Surgery [facility] Encounters Start End Encounter Admission Attending Care Care Encounter Source Date/Time Date/Time Type Type Clinicians Facility Department ID 2022-07-24 Outpatient [facility] [id number] [place] 11:32:56 [id number] [facility] 2022-07-19 Outpatient [facility] [id number] [place] 16:06:29 [id number] [facility] 2022-08-07 2022-08-07 Outpatient [facility] [id number] [place] 11:00:00 [facility]:00:00 [facility] 2022-06-23 2022-07-02 Inpatient [facility] [id number] Memoria 19:30:00 20:45:00 islvana Oshea 94 l [facility] 2022-06-23 2022-07-02 Inpatient U [facility] MED [id number] [facility] 14:30:00 15:45:00 NEFTALI 2022-06-23 2022-07-02 Outpatient Mary [facility] [id number] 14:30:00 15:45:00 Neftlai Lopes 2022-06-21 2022-06-23 Inpatient [facility] [id number] Memoria 08:19:00 19:00:00 silvana Oshea 92 l [facility] 2022-06-232022-06-23 Outpatient Mary [facility] [id number] 14:30:00 14:30:00 Neftali 94 Moses 2022-06-21 2022-06-23 Inpatient U [facility] MED [id number] MHNW 03:19:00 14:00:00 ALIZA 2022-06-21 2022-06-23 [facility] [id number] 03:19:00 14:00:00 Aliza 92 Shireen 2022-06-21 2022-06-21 Emergency [facility] [id number] Memoria 00:31:51 07:22:00 [place] [address] l [facility] 2022-06-20 2022-06-21 Outpatient Iheme, Britney MHPL MHPL [id number] 19:31:51 02:22:00 U 00 2022-06-20 2022-06-21 Outpatient Iheme, Britney MHPL MHPL [id number] 19:31:51 02:22:00 U 00 2022-06-20 2022-06-21 Emergency E IHEME, BRITNEY MHBL MHBL [id number] MHBL 19:31:00 02:22:00 2022-04-17 2022-04-17 Emergency X MICHAEL [facility] ERT [id number] Univers 16:08:00 19:03:00 JUANA ward [facility] 2022-04-17 2022-04-17 Emergency [facility] [id number] Univers 16:08:00 19:03:00 [address] [id number] [facility] [id number] [facility] [phone] [place] [address] Branch 2021-01-04 2021-01-04 Outpatient R NAVIN [facility] [id number] Univers 13:45:00 13:45:00 MUSA pabon [facility] 2020-12-24 2020-12-24 Office [facility] [id number] Univers 09:16:09 10:04:56 Visit Musa Ng GELATIN [employer] [id number] ity of [facility] [id number] Farooq as MATERNAL [phone] Med ical & CHILD [facility] 2020-12-24 2020-12-24 Outpatient R NAVIN, [facility] [id number] Univers 09:00:00 09:00:00 MUSA donnelly f [facility] 2020-12-24 2020-12-24 Orders Doctor CHRIS [id number] Univers 00:00:00 00:00:00 Only Unassigned, ELLEN [id number] ity of [place] [facility] [id number] [place]q as [phone] [address] 2020-11-16 2020-11-16 Patient Rohan [facility] [id number] Univers 00:00:00 00:00:00 [facility] [id number] i ty of [facility] [id number] [place] [phone] Ct dical [address] [place] [address] 2020-05-27 2020-05-27 Outpatient R NAVIN, [facility] [id number] Univers 08:15:00 08:15:00 MUSA pabon [facility] 2020-05-27 2020-05-27 Outpatient R AKINGIAPE, [facility] [id number] Univers 08:15:00 08:15:00 MUSA pabon [facility] 2020-05-27 2020-05-27 Outpatient R [facility] [id number] Univers 07:45:00 07:45:00 ity of [facility] 2020-02-25 2020-02-25 Office [facility] [id number] Univers 13:05:53 13:56:05 Visit Musa Ng [employer] [id number] ity [facility] [id number] Farooq as MATERNAL [phone] [facility] ical & CHILD 107 [facility] 2020-02-25 2020-02-25 Outpatient R AKINDANIELA, [facility] [id number] Univers 13:15:00 13:15:00 MUSA pabon [facility] 2020-02-25 2020-02-25 Outpatient R NAVIN, [facility] [id number] Univers 13:15:00 13:15:00 MUSA pabon [facility] 2020-02-25 2020-02-25 Outpatient R NAVIN, [facility] [id number] Univers 13:15:00 13:15:00 MUSA donnelly [facility] 2020-01-19 2020-01-19 [facility] [id number] .[id number] Univers 14:11:10 14:26:10 Visit Musa Holden Hernandez [employer] 350.1.13. 10 ity of [facility] [id number] Farooq as MATERNAL [phone] [facility] ical & CHILD [address] [place] [address] 2020-01-19 2020-01-19 Telemedici [facility] [id number] Univers 08:10:27 11:02:57 ne Visit Musa Ng [employer] [id number] ity [facility] [id number] Farooq as MATERNAL [phone] [facility] & CHILD [address] [place] [address] 2020-01-19 2020-01-19 Outpatient R NAVIN, [facility] [id number] Univers 10:45:00 10:45:00 MUSA donnelly [facility] 2020-01-19 2020-01-19 Outpatient R NAVIN, [facility] [id number] Univers 10:45:00 10:45:00 MUSA donnelly [facility] 2020-01-16 2020-01-16 Orders Doctor CHRIS [id number] Univers 00:00:00 00:00:00 Only Unassigned, ELLEN [id number] ity of [facility] [id number] Farooq as [phone] [address] 2019-12-27 2019-12-27 Emergency X FAN [facility] ERT [id number] Univers 10:42:28 13:30:00 MARYBEL ward [facility] 2019-12-19 2019-12-19 Telephone Pcp, [facility] [id number] Univers 00:00:00 00:00:00 Patient GELATIN [employer] [id number] it y of Does Not REGIONAL [id number] Matthew nielson Have A MATERNAL [phone] Med ical & CHILD [address] [place] [address] Results Test Description Test Time Test Comments Results Result Comments Source POINT OF CARE 2022-07-02 16:40:00 Test Item Value Reference Range Interpretation Comme nts Glucose POC (test code = Glucose POC) 180 70-99 [facility]2022-10-30 16:40:00 Test Item Value Reference Range Interpretation Comments Gluc POC Comment 1 (test code Notified RN/MD = Gluc POC Comment 1) [facility]64 10:15:00 Test Item Value Reference Range Interpretation Comments Glucose Lvl (test code = Glucose Lvl) 141 70-99 [facility]SnnbhhaDGVBKEUWF3722-02-28 10:15:00 Test Item Value Reference Range Interpretation Comments BUN (test code = BUN) 12 7-22 [facility]PwqesljTIVAYLOAI2269-97-96 10:15:00 Test Item Value Reference Range Interpretation Comments Creatinine Lvl (test code = Creatinine 0.42 0.50-1.40 Lvl) [facility]HhanceoADNBWNILO2017-78-92 10:15:00 Test Item Value Reference Range Interpretation Comments Sodium Lvl (test code = Sodium Lvl) 135 135-145 [facility]YggymiiXFHCLUCIP0976-90-47 10:15:00 Test Item Value Reference Range Interpretation Comments Potassium Lvl (test code = Potassium 4.2 3.5-5.1 Lvl) [facility] HospitalWnczdptQCLOERTQN1200-41-82 10:15:00 Test Item Value Reference Range Interpretation Comments Chloride Lvl (test code = Chloride Lvl) 101 95-109 [facility] HospitalAcprujgQNRRJOFLE0865-66-31 10:15:00 Test Item Value Reference Range Interpretation Comments CO2 (test code = CO2) 30 24-32 [facility] HospitalTcvwjdmJPZIZXSVI9031-98-57 10:15:00 Test Item Value Reference Range Interpretation Comments AGAP (test code = AGAP) 8.2 10.0-20.0 [facility] HospitalRcpjowqSKJLHLUUQ6193-45-19 10:15:00 Test Item Value Reference Range Interpretation Comments Calcium Lvl (test code = Calcium Lvl) 8.9 8.5-10.5 [place] 119502-10-30 10:15:00 Test Item Value Reference Range Interpretation Comments eGFR (test code = eGFR) 116 [facility] HospitalOnrsnqxKDCHYVAYH1119-69-07 10:15:00 Test Item Value Reference Range Interpretation Comments Magnesium Lvl (test code = Magnesium 1.9 1.8-2.4 Lvl) [facility] HospitalFdbrkhoACWQOBYVT1298-29-57 10:15:00 Test Item Value Reference Range Interpretation Comments Phosphorus (test code = Phosphorus) 4.2 2.5-4.5 [facility] HospitalZmpgujmEEPCPBUTX6647-86-53 10:15:00 Test Item Value Reference Range Interpretation Comments Ca Ion WB (test code = Ca Ion WB) 1.23 1.05-1.25 [place] 119502-10-30 10:15:00 Test Item Value Reference Range Interpretation Comments Ca Ion at pH 7.4 WB (test code = Ca Ion 1.19 1.05-1.25 at pH 7.4 WB) [facility]jerczEWDVJKMLVI7099-33-42 10:15:00 Test Item Value Reference Range Interpretation Comments WBC (test code = WBC) 10.9 3.7-10.4 [facility] HospitalAoclejrFNIIUCYERV5318-84-60 10:15:00 Test Item Value Reference Range Interpretation Comments RBC (test code = RBC) 2.89 4.20-5.40 [place] 646402-10-30 10:15:00 Test Item Value Reference Range Interpretation Comments Hgb (test code = Hgb) 8.2 12.0-16.0 [place] 646402-10-30 10:15:00 Test Item Value Reference Range Interpretation Comments Hct (test code = Hct) 24.5 36.0-48.0 [place] [address]-10-30 10:15:00 Test Item Value Reference Range Interpretation Comments MCV (test code = MCV) 84.7 80.0-98.0 [place] [address]-10-30 10:15:00 Test Item Value Reference Range Interpretation Comments MCH (test code = MCH) 28.4 pg 27.0-31.0 [facility] HospitalThaiqbrAPHOAAOCLA7029-76-29 10:15:00 Test Item Value Reference Range Interpretation Comments MCHC (test code = MCHC) 33.5 32.0-36.0 [place] 646402-10-30 10:15:00 Test Item Value Reference Range Interpretation Comments RDW (test code = RDW) 13.5 11.5-14.5 [place] 646402-10-30 10:15:00 Test Item Value Reference Range Interpretation Comments Platelet (test code = Platelet) 459 133-450 [place] 646402-10-30 10:15:00 Test Item Value Reference Range Interpretation Comments MPV (test code = MPV) 8.1 7.4-10.4 [place] 646402-10-30 10:15:00 Test Item Value Reference Range Interpretation Comments Segs (test code = Segs) 59.9 45.0-75.0 [place] 646402-10-30 10:15:00 Test Item Value Reference Range Interpretation Comments Lymphocytes (test code = Lymphocytes) 31.3 20.0-40.0 [place] 646402-10-30 10:15:00 Test Item Value Reference Range Interpretation Comments Monocytes (test code = Monocytes) 4.9 2.0-12.0 [facility] HospitalSbczpcwZIFFZGAYER6375-21-62 10:15:00 Test Item Value Reference Range Interpretation Comments Eosinophils (test code = 3.3 See_Comment [A utomated message] The Eosinophils) system which ge nerated this result tra nsmitted reference range : <=4.0. The reference r kyle was not used to int erpret this result as normal/abnormal . [facility] HospitalMfopzbnXWPPTCUOGK1955-06-26 10:15:00 Test Item Value Reference Range Interpretation Comments Basophils (test code = 0.6 See_Comment [Aut omated message] The Basophils) system which ge nerated this result tra nsmitted reference range : <=1.0. The reference r kyle was not used to int erpret this result as normal/abnormal . [place] 646402-10-30 10:15:00 Test Item Value Reference Range Interpretation Comments Neutrophils # (test code = Neutrophils 6.5 1.5-8.1 #) [facility] HospitalBesjudkYMYUAOIPMZ3443-98-93 10:15:00 Test Item Value Reference Range Interpretation Comments Lymphocytes # (test code = Lymphocytes 3.4 1.0-5.5 #) [facility] HospitalPwuukbrJNUJVHXXQO8608-56-87 10:15:00 Test Item Value Reference Range Interpretation Comments Monocytes # (test code 0.5 See_Comment [Aut omated message] The = Monocytes #) system which generated this result tra nsmitted reference range : <=0.8. The reference r kyle was not used to int erpret this result as normal/abnormal . [facility] HospitalQiyooodWKFFZGAKKU3759-08-60 10:15:00 Test Item Value Reference Range Interpretation Comments Eosinophils # (test code 0.4 See_Comment [A utomated message] The = Eosinophils #) system whic h generated this result tra nsmitted reference range : <=0.5. The reference r kyle was not used to int erpret this result as normal/abnormal . [facility] HospitalTxskyzuSYXOPDNHIS1576-82-08 10:15:00 Test Item Value Reference Range Interpretation Comments Basophils # (test code 0.1 See_Comment [Aut omated message] The = Basophils #) system which generated this result tra nsmitted reference range : <=0.2. The reference r kyle was not used to int erpret this result as normal/abnormal . [facility] CenterKoaizrtNAQMMP5945-91-12 16:38:43 Test Item Value Reference Range Interpretation Comments RADRPT (test code = EXAM: MRI CERVICAL SPINE RADRPT) WITHOUT AND WITH CONTRASTDATE: 06/30/2022INDICATION: - infection.COMPARISON: NoneTECHNIQUE: Multiplanar, multisequence, precontrast and postcontrast MR imaging of the cervical spine.IV contrast: Refer to clinical technologist documentationFINDINGS: Numbering: There are 7 cervical, nonrib-bearing vertebrae.Alignment: Grade 1 retrolisthesis of C6 on C7.Bones: Within normal limits for age. No edema or aggressive osseous lesion. Vertebral body heights are maintained.Spinal cord: Normal in size and signal.Disc: Multilevel disc height and signal loss in keeping with degenerative disc disease.Individual levels:Craniocervical junction: Intact.C2-C3: Bilateral uncovertebral hypertrophy and mild facet arthropathy. No neural foraminal or spinal canal stenosis.C3-C4: Bilateral uncovertebral hypertrophy and mild facet arthropathy results in mild bilateral neural foraminal stenosis.C4-C5: Central disc osteophyte complex indents the anterior thecal sac. This results in mild spinal canal stenosis. No neural foraminal stenosis.C5-C6: Disc osteophyte complex, bilateral uncovertebral hypertrophy, and mild facet arthropathy. Disc osteophyte complex indents the anterior thecal sac resulting in mild spinal canal stenosis. No neural foraminal stenosis.C6-C7: Grade 1 retrolisthesis of C6 on C7. There is a disc osteophyte complex and bilateral uncovertebral hypertrophy resulting in anterior effacement of the thecal sac. Moderate right neural foraminal stenosis. Mild left neural foraminal stenosis. Moderate spinal canal stenosis.C7-T1: No significant spinal canal or foraminal narrowing.Other: The included soft tissues are unremarkable. The normal T2 hypointense flow voids of the larger arteries in the neck are maintained.Postcontrast: No pathologic intramedullary or leptomeningeal enhancement.IMPRESSION:1. No evidence of infection of the cervical spine.2. Moderate spinal canal stenosis C6/C7. Mild spinal canal stenosis C4-C5 and C5-C6. Most pronounced degenerative changes are seen at C5-C6 level with disc osteophyte complex contacting/slightly deforming the ventral cord margin. No convincing cord signal abnormality is noted. The subtle T2 hyperintensity seen in the sagittal image at C5-C6 and C6-C7 levels are not corroborated on the axial images, presumably artifactual. No abnormal cord enhancement.3. Moderate right neural foraminal stenosis C6-C7 [facility] CenterBiaoplgLTRFMG4583-83-90 07:33:51 Test Item Value Reference Range Interpretation Comments RADRPT (test code = EXAM: XR THORACIC SPINE 2 RADRPT) VIEWSDATE: 06/30/2022 19:25INDICATION: - uprights. PainCOMPARISON: MRI from July 29, 2022TECHNIQUE: AP and lateral radiographs of the thoracic spineIMPRESSION: * The wedge which compression deformity wedge compression deformity seen involving T12 with focal kyphosis. Vertebral augmentation at this level is again seen.* No significant change since previous examination* Multilevel diffuse degenerative changes are present. [facility] CenterZfbkoloYNCAYC0874-48-14 19:34:11 Test Item Value Reference Range Interpretation Comments RADRPT (test code EXAM: XR CHEST 1 VIEWDATE: = RADRPT) 06/29/2022 12:24INDICATION: Line Placement - RUE PICC line placementCOMPARISON: June 26, 2022TECHNIQUE: AP chestIMPRESSION: Interval placement of left PICC it is tip projecting over the cavoatrial junction.The cardiomediastinal silhouette is normal in size for technique. Mild bibasilar platelike atelectasis, otherwise the lungs are clear. No definitive pleural effusions. No pneumothorax in this portable radiograph. Osseous structures are unchanged. [facility] CenterMlekkudFMOBNNPUXJ6799-78-02 05:23:00 Test Item Value Reference Range Interpretation Comments C-REACTIVE PROTEIN (test code = 22.5 C-REACTIVE PROTEIN) [facility] CenterAsmfpeuWVFDZNUVGW0060-35-82 23:15:00 Test Item Value Reference Range Interpretation Comments Sed Rate (test code = 90 See_Comment [Auto mated message] The Sed Rate) system which KLab nerated this result transmit delaney reference range : <=20. The reference range was not used to interpr et this result as kiarra l/abnormal. [facility]hamUxrgaqkOZTAUP1122-33-27 14:43:31 Test Item Value Reference Range Interpretation Comments RADRPT (test code = EXAM: MRI THORACIC SPINE RADRPT) WITHOUT AND WITH CONTRASTEXAM: MRI LUMBAR SPINE WITHOUT AND WITH CONTRASTDATE: 06/27/2022INDICATION: - Recent Surgery, Possible infection, rule out of abscess.COMPARISON: CT CAP performed at outside facility 06/20/2022.TECHNIQUE: Multisequence, multiplanar, pre and postcontrast MR images were obtained through the thoracic and lumbar spine.IV contrast: See technologist noteFINDINGS: Standard numbering with 12 thoracic and 5 lumbar type vertebral bodies.THORACIC SPINE:Alignment: The normal kyphosis is preserved.Bones: Compression deformity of T12 with postprocedural changes of kyphoplasty. There is increased T2W signal along the inferior aspect of T11 and throughout T12. There is corresponding decreased T1W signal in these regions and avid contrast enhancement. There is also associated adjacent intradiscal fluid collection and perivertebral soft tissue swelling, in keeping with discitis/osteomyelitis. Vertebral body heights are otherwise maintained.Spinal cord: Normal in size and signal.Individual levels: 0.7 cm perineural cyst at the right neural foramen at T7 (series 801, image 27). Multilevel anterior disc osteophyte complex formation throughout the thoracic spine. No disc herniation, spinal canal stenosis, or neural foraminal narrowing.LUMBAR SPINE:Alignment: Normal.Bones: No marrow edema. No aggressive osseous lesion. Vertebral body heights are maintained.Conus medullaris: Normal in size and signal. Terminates at a normal level.Cauda equina: The cauda equina nerve roots are normal.Individual levels: No disc herniation, spinal canal stenosis, or neural foraminal narrowing.Other: Small right pleural effusion and trace left pleural effusion.Postcontrast: There is contrast enhancement within the epidural space at T11-T12 and in the surrounding paraspinal soft tissues and along the posterior elements.IMPRESSION: 1. Discitis-osteomyelitis at T11-T12 with ventral epidural inflammatory phlegmon and prevertebral soft tissue swelling, resulting in mild spinal canal stenosis. No cord compression or cord signal abnormalities.2. Compression deformity with postprocedural changes of kyphoplasty at T12.3. Small right and trace left pleural effusions.4. Diffuse esophageal wall thickening, improved since the prior CT 06/20/2022 although comparison is limited due to differences in technique.Critical finding of discitis-osteomyelitis at T11-12 with paraspinous extension was communicated to and acknowledged by Dr. Lozoya via telephone at 06/28/2022 10:15 by Gerald Pop MD [facility] CenterJonafhkRHFZGR5282-11-46 14:43:31 Test Item Value Reference Range Interpretation Comments RADRPT (test code = EXAM: MRI THORACIC SPINE RADRPT) WITHOUT AND WITH CONTRASTEXAM: MRI LUMBAR SPINE WITHOUT AND WITH CONTRASTDATE: 06/27/2022INDICATION: - Recent Surgery, Possible infection, rule out of abscess.COMPARISON: CT CAP performed at outside facility 06/20/2022.TECHNIQUE: Multisequence, multiplanar, pre and postcontrast MR images were obtained through the thoracic and lumbar spine.IV contrast: See technologist noteFINDINGS: Standard numbering with 12 thoracic and 5 lumbar type vertebral bodies.THORACIC SPINE:Alignment: The normal kyphosis is preserved.Bones: Compression deformity of T12 with postprocedural changes of kyphoplasty. There is increased T2W signal along the inferior aspect of T11 and throughout T12. There is corresponding decreased T1W signal in these regions and avid contrast enhancement. There is also associated adjacent intradiscal fluid collection and perivertebral soft tissue swelling, in keeping with discitis/osteomyelitis. Vertebral body heights are otherwise maintained.Spinal cord: Normal in size and signal.Individual levels: 0.7 cm perineural cyst at the right neural foramen at T7 (series 801, image 27). Multilevel anterior disc osteophyte complex formation throughout the thoracic spine. No disc herniation, spinal canal stenosis, or neural foraminal narrowing.LUMBAR SPINE:Alignment: Normal.Bones: No marrow edema. No aggressive osseous lesion. Vertebral body heights are maintained.Conus medullaris: Normal in size and signal. Terminates at a normal level.Cauda equina: The cauda equina nerve roots are normal.Individual levels: No disc herniation, spinal canal stenosis, or neural foraminal narrowing.Other: Small right pleural effusion and trace left pleural effusion.Postcontrast: There is contrast enhancement within the epidural space at T11-T12 and in the surrounding paraspinal soft tissues and along the posterior elements.IMPRESSION: 1. Discitis-osteomyelitis at T11-T12 with ventral epidural inflammatory phlegmon and prevertebral soft tissue swelling, resulting in mild spinal canal stenosis. No cord compression or cord signal abnormalities.2. Compression deformity with postprocedural changes of kyphoplasty at T12.3. Small right and trace left pleural effusions.4. Diffuse esophageal wall thickening, improved since the prior CT 06/20/2022 although comparison is limited due to differences in technique.Critical finding of discitis-osteomyelitis at T11-12 with paraspinous extension was communicated to and acknowledged by Dr. Lozoya via telephone at 06/28/2022 10:15 by Gerald Pop MD [facility]2022-10-25 11:00:00 Test Item Value Reference Range Interpretation Comments Gluc POC Comment 2 (test code = Sent to lab Gluc POC Comment 2) [facility] CenterGnllekvKDVCVR7755-06-59 18:45:51 Test Item Value Reference Range Interpretation Comments RADRPT (test code = EXAM: XR ABDOMEN 2 RADRPT) VIEWSEXAM: CHEST 1 VIEWDATE: 06/26/2022 at 1305 hours INDICATION: - Abdominal pain and shortness of breath ADDITIONAL INFORMATION: None.COMPARISON: * Radiograph abdomen of 06/23/2022 at 1556 hours* Radiograph chest of 06/23/2022 at 1556 hours* Fluoroscopy upper GI of 06/22/2022 at 1653 hours. TECHNIQUE: Upright and supine abdominal radiographs, and a single frontal view of the chest.FINDINGS: Lines, tubes and hardware: EKG leads overlie the patient.Lungs and pleura: Pulmonary vascularity is normal. Scattered platelike atelectasis is present. The costophrenic sulci are sharp without effusion. No pneumothorax is identified.Heart and mediastinum: The heart size is normal. Vascular calcifications are present at the aorta. Abdomen and bowel: Enteric contrast material is present within normal caliber bowel. No free air. No differential air fluid levels.Bones and soft tissues: Regional skeleton and lower thoracic vertebroplasty are unchanged.IMPRESSION: 1. No abdominal abnormalities.2. Hardware as above. [facility]Jhk[facility]lXORLFMEYG9890[facility]41-34 16:44:00 Test Item Value Reference Range Interpretation Comments POC V Source (test code = POC V Source) BRUNA [place] 119502-10-24 16:44:00 Test Item Value Reference Range Interpretation Comments POC V Temp (test code = POC V Temp) 37.0 [facility] HospitalOnkfmvsRNHRKRICY6256-00-41 16:44:00 Test Item Value Reference Range Interpretation Comments POC V Ion Ca (test code = POC V Ion Ca) 1.20 1.05-1.25 [facility] HospitalNqijaosWOHOVOMLW8433-55-90 16:44:00 Test Item Value Reference Range Interpretation Comments POC V K (test code = POC V K) 4.0 3.5-5.1 [place] 119502-10-24 16:44:00 Test Item Value Reference Range Interpretation Comments POC V Na (test code = POC V Na) 130 135-145 [facility] HospitalMsaciszCLMGNPLYR0765-72-49 16:44:00 Test Item Value Reference Range Interpretation Comments POC V LA (test code = POC V LA) 1.1 0.5-2.2 [facility] HospitalQpxsruzQSZHINGYN1992-59-12 16:44:00 Test Item Value Reference Range Interpretation Comments POC V pH (test code = POC V pH) 7.41 1 7.28-7.42 [place] 119502-10-24 16:44:00 Test Item Value Reference Range Interpretation Comments POC V PCO2 (test code = POC V PCO2) 40 38-52 [facility] HospitalVhnobdbGYUPYKXDG1335-61-39 16:44:00 Test Item Value Reference Range Interpretation Comments POC V PO2 (test code = POC V PO2) 41 20-49 [facility] HospitalFahjrzqFDIQQJMGB2054-01-89 16:44:00 Test Item Value Reference Range Interpretation Comments POC V HCO3 (test code = POC V HCO3) 25 22-26 [facility] HospitalWiaacbtGBFVJJZHN4961-11-37 16:44:00 Test Item Value Reference Range Interpretation Comments POC V BE (test code = POC V BE) 1 -2-2 [facility] HospitalQbwaijdDXCGKAZWZ6648-99-27 16:44:00 Test Item Value Reference Range Interpretation Comments POC V O2 Sat (calc) (test code = POC V 76.8 40.0-70.0 O2 Sat (calc)) [facility] HospitalUfgnxqbIPWYWQKIZ8583-53-53 16:44:00 Test Item Value Reference Range Interpretation Comments POC V Hgb Tot (test code = POC V Hgb 9.6 12.0-16.0 Tot) [facility] HospitalQqaewkrVWKQANBVZ7625-41-32 16:44:00 Test Item Value Reference Range Interpretation Comments POC V Glu (test code = POC V Glu) 185 70-99 [facility] HospitalYezrnslTCWULIPAZ5460-66-63 16:44:00 Test Item Value Reference Range Interpretation Comments POC V Hct (calc) (test code = POC V Hct 29.0 36.0-48.0 (calc)) [facility] HospitalAcqaakqLXQZVDDQM0582-04-06 16:44:00 Test Item Value Reference Range Interpretation Comments POC V Cl (test code = POC V Cl) 100 95-109 [facility] HospitalMryfwvaXXBTBXSOH6035-53-11 16:44:00 Test Item Value Reference Range Interpretation Comments POC V Ca Ion at pH 7.4 (test code = POC 1.20 1.05-1.25 V Ca Ion at pH 7.4) [facility] HospitalUebcwaaQDISKJSIZ7719-31-36 09:27:00 Test Item Value Reference Range Interpretation Comments Vancomycin AUC (test code = Vancomycin 13.5 AUC) [facility]QmhpbquDCDECVVXCP5402-48-43 03:00:00 Test Item Value Reference Range Interpretation Comments Hgb (test code = Hgb) 7.6 12.0-16.0 [facility] HospitalGhbvxizKEYXZVWBXG8828-09-64 03:00:00 Test Item Value Reference Range Interpretation Comments Hct (test code = Hct) 23.1 36.0-48.0 [facility] CenterCulture: [id number] 15:20:00 Test Item Value Reference Range Interpretation Comments Culture: Blood (test code No Growth At 5 Days = Culture: Blood) [place] 806342-10-23 09:39:00 Test Item Value Reference Range Interpretation Comments Glucose Lvl (test code = Glucose Lvl) 150 70-99 [facility]2022-10-23 09:39:00 Test Item Value Reference Range Interpretation Comments BUN (test code = BUN) 9 7-22 [place] 806342-10-23 09:39:00 Test Item Value Reference Range Interpretation Comments Creatinine Lvl (test code = Creatinine 0.42 0.50-1.40 Lvl) [facility]2022-10-23 09:39:00 Test Item Value Reference Range Interpretation Comments Sodium Lvl (test code = Sodium Lvl) 134 135-145 [facility]2022-10-23 09:39:00 Test Item Value Reference Range Interpretation Comments Potassium Lvl (test code = Potassium 3.3 3.5-5.1 Lvl) [facility]2022-10-23 09:39:00 Test Item Value Reference Range Interpretation Comments Chloride Lvl (test code = Chloride Lvl) 102 95-109 [facility]2022-10-23 09:39:00 Test Item Value Reference Range Interpretation Comments CO2 (test code = CO2) 25 24-32 [facility]2022-10-23 09:39:00 Test Item Value Reference Range Interpretation Comments Calcium Lvl (test code = Calcium Lvl) 8.7 8.5-10.5 [place] 806342-10-23 09:39:00 Test Item Value Reference Range Interpretation Comments AGAP (test code = AGAP) 10.3 10.0-20.0 [place] 806342-10-23 09:39:00 Test Item Value Reference Range Interpretation Comments eGFR (test code = eGFR) 116 [facility]2022-10-23 09:39:00 Test Item Value Reference Range Interpretation Comments Magnesium Lvl (test code = Magnesium 1.9 1.8-2.4 Lvl) [place] 806342-10-23 09:39:00 Test Item Value Reference Range Interpretation Comments Phosphorus (test code = Phosphorus) 2.6 2.5-4.5 [place] [address]-10-23 09:39:00 Test Item Value Reference Range Interpretation Comments Segs (test code = Segs) 68.1 45.0-75.0 [place] 646402-10-23 09:39:00 Test Item Value Reference Range Interpretation Comments Lymphocytes (test code = Lymphocytes) 20.4 20.0-40.0 [place] [address]-10-23 09:39:00 Test Item Value Reference Range Interpretation Comments Monocytes (test code = Monocytes) 6.7 2.0-12.0 [place] [address]-10-23 09:39:00 Test Item Value Reference Range Interpretation Comments Eosinophils (test code = 4.1 See_Comment [A utomated message] The Eosinophils) system which ge nerated this result tra nsmitted reference range : <=4.0. The reference r kyle was not used to int erpret this result as normal/abnormal . [place] [address]-10-23 09:39:00 Test Item Value Reference Range Interpretation Comments Basophils (test code = 0.7 See_Comment [Aut omated message] The Basophils) system which ge nerated this result tra nsmitted reference range : <=1.0. The reference r kyle was not used to int erpret this result as normal/abnormal . [place] 646402-10-23 09:39:00 Test Item Value Reference Range Interpretation Comments Neutrophils # (test code = Neutrophils 6.7 1.5-8.1 #) [place] [address]-10-23 09:39:00 Test Item Value Reference Range Interpretation Comments Lymphocytes # (test code = Lymphocytes 2.0 1.0-5.5 #) [place] [address]-10-23 09:39:00 Test Item Value Reference Range Interpretation Comments Monocytes # (test code 0.7 See_Comment [Aut omated message] The = Monocytes #) system which generated this result tra nsmitted reference range : <=0.8. The reference r kyle was not used to int erpret this result as normal/abnormal . [place] [address]-10-23 09:39:00 Test Item Value Reference Range Interpretation Comments Eosinophils # (test code 0.4 See_Comment [A utomated message] The = Eosinophils #) system whic h generated this result tra nsmitted reference range : <=0.5. The reference r kyle was not used to int erpret this result as normal/abnormal . [facility] HospitalTyptixdTFVMTDDSXK2979-82-94 09:39:00 Test Item Value Reference Range Interpretation Comments Basophils # (test code 0.1 See_Comment [Aut omated message] The = Basophils #) system which generated this result tra nsmitted reference range : <=0.2. The reference r kyle was not used to int erpret this result as normal/abnormal . [facility] HospitalJklbwfuJSGZFIJHAT0801-29-12 09:39:00 Test Item Value Reference Range Interpretation Comments WBC (test code = WBC) 9.9 3.7-10.4 [place] 646402-10-23 09:39:00 Test Item Value Reference Range Interpretation Comments RBC (test code = RBC) 3.05 4.20-5.40 [facility] HospitalSbyjuonZLIIYWEPQX3471-55-79 09:39:00 Test Item Value Reference Range Interpretation Comments Hgb (test code = Hgb) 8.5 12.0-16.0 [facility] HospitalRufkcnpEPGGGWZICJ0450-57-66 09:39:00 Test Item Value Reference Range Interpretation Comments Hct (test code = Hct) 25.6 36.0-48.0 [facility] HospitalLqvpscsTWQNCFACQX7541-15-05 09:39:00 Test Item Value Reference Range Interpretation Comments MCV (test code = MCV) 83.9 80.0-98.0 [facility] HospitalGmsyjhbOJBIUDPGFR3626-07-84 09:39:00 Test Item Value Reference Range Interpretation Comments MCH (test code = MCH) 27.9 pg 27.0-31.0 [facility] HospitalWtbepgwEVZRMYSDWP4461-16-00 09:39:00 Test Item Value Reference Range Interpretation Comments MCHC (test code = MCHC) 33.2 32.0-36.0 [facility] HospitalKmulbpsHKKBKMWYVO5513-76-08 09:39:00 Test Item Value Reference Range Interpretation Comments RDW (test code = RDW) 12.6 11.5-14.5 [place] 646402-10-23 09:39:00 Test Item Value Reference Range Interpretation Comments Platelet (test code = Platelet) 358 133-450 [facility] HospitalIoqldutBNRJSEDOQA2303-51-37 09:39:00 Test Item Value Reference Range Interpretation Comments MPV (test code = MPV) 8.1 7.4-10.4 [place] 469342-10-23 09:39:00 Test Item Value Reference Range Interpretation Comments Ca Ion WB (test code = Ca Ion WB) 1.11 1.05-1.25 [place] 469342-10-23 09:39:00 Test Item Value Reference Range Interpretation Comments Ca Ion at pH 7.4 WB (test code = Ca Ion 1.13 1.05-1.25 at pH 7.4 WB) [place] 646402-10-23 04:10:00 Test Item Value Reference Range Interpretation Comments Hgb (test code = Hgb) 9.1 12.0-16.0 [place] [address]-10-23 04:10:00 Test Item Value Reference Range Interpretation Comments Hct (test code = Hct) 27.1 36.0-48.0 [place] 806342-10-22 08:53:00 Test Item Value Reference Range Interpretation Comments Glucose Lvl (test code = Glucose Lvl) 93 70-99 [place] 806342-10-22 08:53:00 Test Item Value Reference Range Interpretation Comments BUN (test code = BUN) 12 - [place] 806342-10-22 08:53:00 Test Item Value Reference Range Interpretation Comments Creatinine Lvl (test code = Creatinine 0.36 0.50-1.40 Lvl) [place] 806342-10-22 08:53:00 Test Item Value Reference Range Interpretation Comments Sodium Lvl (test code = Sodium Lvl) 137 135-145 [place] 806342-10-22 08:53:00 Test Item Value Reference Range Interpretation Comments Potassium Lvl (test code = Potassium 3.4 3.5-5.1 Lvl) [place] 806342-10-22 08:53:00 Test Item Value Reference Range Interpretation Comments Chloride Lvl (test code = Chloride Lvl) 105 95-109 [place] 806342-10-22 08:53:00 Test Item Value Reference Range Interpretation Comments CO2 (test code = CO2) 22 24-32 [place] 806342-10-22 08:53:00 Test Item Value Reference Range Interpretation Comments Calcium Lvl (test code = Calcium Lvl) 8.4 8.5-10.5 [place] [address]-10-22 08:53:00 Test Item Value Reference Range Interpretation Comments AGAP (test code = AGAP) 13.4 10.0-20.0 [place] [address]-10-22 08:53:00 Test Item Value Reference Range Interpretation Comments eGFR (test code = eGFR) 120 [place] [address]-10-22 08:53:00 Test Item Value Reference Range Interpretation Comments Magnesium Lvl (test code = Magnesium 2.0 1.8-2.4 Lvl) [place] [address]-10-22 08:53:00 Test Item Value Reference Range Interpretation Comments Phosphorus (test code = Phosphorus) 2.9 2.5-4.5 [place] [address]-10-22 08:53:00 Test Item Value Reference Range Interpretation Comments Segs (test code = Segs) 65.7 45.0-75.0 [place] [address]-10-22 08:53:00 Test Item Value Reference Range Interpretation Comments Lymphocytes (test code = Lymphocytes) 25.5 20.0-40.0 [address]10-22 08:53:00 Test Item Value Reference Range Interpretation Comments Monocytes (test code = Monocytes) 5.3 2.0-12.0 [place] [address]-10-22 08:53:00 Test Item Value Reference Range Interpretation Comments Eosinophils (test code = 3.1 See_Comment [A utomated message] The Eosinophils) system which ge nerated this result tra nsmitted reference range : <=4.0. The reference r kyle was not used to int erpret this result as normal/abnormal . [place] [address]-10-22 08:53:00 Test Item Value Reference Range Interpretation Comments Basophils (test code = 0.4 See_Comment [Aut omated message] The Basophils) system which ge nerated this result tra nsmitted reference range : <=1.0. The reference r kyle was not used to int erpret this result as normal/abnormal . [place] [address]-10-22 08:53:00 Test Item Value Reference Range Interpretation Comments Neutrophils # (test code = Neutrophils 7.1 1.5-8.1 #) [facility] HospitalNlimltbXNKRTHNTIS0936-57-54 08:53:00 Test Item Value Reference Range Interpretation Comments Lymphocytes # (test code = Lymphocytes 2.8 1.0-5.5 #) [facility] HospitalLceebmeKOGDYAWKML2860-09-26 08:53:00 Test Item Value Reference Range Interpretation Comments Monocytes # (test code 0.6 See_Comment [Aut omated message] The = Monocytes #) system which generated this result tra nsmitted reference range : <=0.8. The reference r kyle was not used to int erpret this result as normal/abnormal . [place] 646402-10-22 08:53:00 Test Item Value Reference Range Interpretation Comments Eosinophils # (test code 0.3 See_Comment [A utomated message] The = Eosinophils #) system whic h generated this result tra nsmitted reference range : <=0.5. The reference r kyle was not used to int erpret this result as normal/abnormal . [facility] HospitalLblgqnwANWXNLCCND0022-19-79 08:53:00 Test Item Value Reference Range Interpretation Comments WBC (test code = WBC) 10.8 3.7-10.4 [place] 646402-10-22 08:53:00 Test Item Value Reference Range Interpretation Comments RBC (test code = RBC) 2.80 4.20-5.40 [facility] HospitalLprbazhPUZTMUFUMR8022-06-22 08:53:00 Test Item Value Reference Range Interpretation Comments MCV (test code = MCV) 84.6 80.0-98.0 [facility] HospitalXmjpdrgWCESQICUGE4408-26-87 08:53:00 Test Item Value Reference Range Interpretation Comments MCH (test code = MCH) 28.1 pg 27.0-31.0 [place] 646402-10-22 08:53:00 Test Item Value Reference Range Interpretation Comments MCHC (test code = MCHC) 33.2 32.0-36.0 [place] 646402-10-22 08:53:00 Test Item Value Reference Range Interpretation Comments RDW (test code = RDW) 12.6 11.5-14.5 [place] 646402-10-22 08:53:00 Test Item Value Reference Range Interpretation Comments Platelet (test code = Platelet) 330 133-450 [place] 646402-10-22 08:53:00 Test Item Value Reference Range Interpretation Comments MPV (test code = MPV) 8.1 7.4-10.4 [facility] T[facility]CAKM7380[facility] 08:53:00 Test Item Value Reference Range Interpretation Comments Ca Ion WB (test code = Ca Ion WB) 1.17 1.05-1.25 [facility]2022-10-22 08:53:00 Test Item Value Reference Range Interpretation Comments Ca Ion at pH 7.4 WB (test code = Ca Ion 1.17 1.05-1.25 at pH 7.4 WB) [facility] CenterNtnibqbINDYVGFMXD9260-84-14 08:53:00 Test Item Value Reference Range Interpretation Comments Vancomycin AUC (test code = Vancomycin 16.5 AUC) [facility]: Ryxfv0334-67-55 04:19:00 Test Item Value Reference Range Interpretation Comments Culture: Urine (test code No Growth; Holding = Culture: Urine) [facility]: Aqiil7793-08-78 04:19:00 Test Item Value Reference Range Interpretation Comments Culture: Urine (test code = No Growth Culture: Urine) [facility]2022-10-21 23:09:00 Test Item Value Reference Range Interpretation Comments Vitamin B12 Lvl (test code = Vitamin 276 B12 Lvl) [facility]2022-10-21 23:09:00 Test Item Value Reference Range Interpretation Comments Folate Lvl (test code = Folate Lvl) 3.7 [facility]2022-10-21 23:09:00 Test Item Value Reference Range Interpretation Comments Ferritin Lvl (test code = Ferritin Lvl) 108 5-204 [facility]2022-10-21 23:09:00 Test Item Value Reference Range Interpretation Comments Iron (test code = Iron) 26 [facility]2022-10-21 23:09:00 Test Item Value Reference Range Interpretation Comments TIBC (test code = TIBC) 198 [facility]2022-10-21 23:09:00 Test Item Value Reference Range Interpretation Comments % Satur Fe (test code = % Satur Fe) 13 [facility] HFQOU8074-05-15 23:09:00 Test Item Value Reference Range Interpretation Comments Glucose Lvl (test code = Glucose Lvl) 98 70-99 [facility]2022-10-21 23:09:00 Test Item Value Reference Range Interpretation Comments BUN (test code = BUN) 12 7-22 [place] 806342-10-21 23:09:00 Test Item Value Reference Range Interpretation Comments Creatinine Lvl (test code = Creatinine 0.39 0.50-1.40 Lvl) [facility]2022-10-21 23:09:00 Test Item Value Reference Range Interpretation Comments Sodium Lvl (test code = Sodium Lvl) 134 135-145 [place] 806342-10-21 23:09:00 Test Item Value Reference Range Interpretation Comments Potassium Lvl (test code = Potassium 3.5 3.5-5.1 Lvl) [facility]2022-10-21 23:09:00 Test Item Value Reference Range Interpretation Comments Chloride Lvl (test code = Chloride Lvl) 102 95-109 [place] 806342-10-21 23:09:00 Test Item Value Reference Range Interpretation Comments CO2 (test code = CO2) 23 24-32 [place] 806342-10-21 23:09:00 Test Item Value Reference Range Interpretation Comments AGAP (test code = AGAP) 12.5 10.0-20.0 [place] 806342-10-21 23:09:00 Test Item Value Reference Range Interpretation Comments Calcium Lvl (test code = Calcium Lvl) 9.2 8.5-10.5 [facility]2022-10-21 23:09:00 Test Item Value Reference Range Interpretation Comments eGFR (test code = eGFR) 118 [facility]2022-10-21 23:09:00 Test Item Value Reference Range Interpretation Comments Magnesium Lvl (test code = Magnesium 2.0 1.8-2.4 Lvl) [facility]2022-10-21 23:09:00 Test Item Value Reference Range Interpretation Comments Phosphorus (test code = Phosphorus) 2.5 2.5-4.5 [place] 806342-10-21 23:09:00 Test Item Value Reference Range Interpretation Comments Total Protein (test code = Total 6.5 6.4-8.4 Protein) [facility]2022-10-21 23:09:00 Test Item Value Reference Range Interpretation Comments Albumin Lvl (test code = Albumin Lvl) 2.2 3.5-5.0 [place] [address]-10-21 23:09:00 Test Item Value Reference Range Interpretation Comments Globulin (test code = Globulin) 4.3 2.7-4.2 [place] [address]-10-21 23:09:00 Test Item Value Reference Range Interpretation Comments A/G Ratio (test code = A/G Ratio) 0.5 1 0.7-1.6 [place] [address]-10-21 23:09:00 Test Item Value Reference Range Interpretation Comments ALT (test code = ALT) 10 See_Comment [Auto mated message] The system which ge nerated this result transmit delaney reference range : <=65. The reference range was not used to interpr et this result as kiarra l/abnormal. [place] [address]-10-21 23:09:00 Test Item Value Reference Range Interpretation Comments AST (test code = AST) 8 See_Comment [Auto mated message] The system which ge nerated this result transmit delaney reference range : <=37. The reference range was not used to interpr et this result as kiarra l/abnormal. [place] 07[address]-10-21 23:09:00 Test Item Value Reference Range Interpretation Comments Alk Phos (test code = Alk Phos) 105 39-136 [place] [address]-10-21 23:09:00 Test Item Value Reference Range Interpretation Comments Bili Total (test code = Bili Total) 0.3 0.2-1.3 [place] [address]-10-21 23:09:00 Test Item Value Reference Range Interpretation Comments Bili Direct (test code no gt See_Comment [Aut omated message] The = Bili Direct) system which generated this result tra nsmitted reference range : <=0.3. The reference r kyle was not used to int erpret this result as kiarra l/abnormal. [facility] CenterChatterfly [id number] 23:09:00 Test Item Value Reference Range Interpretation Comments Bili Indirect Unable to See_Comment [Automated (test code = Bili Calculate message] T he system Indirect) which generated this result transmitted reference range : <=1.0. The reference range was not used to interpret this result as normal/abnormal . [facility] DdqwucoRBESDSYSQ8457-05-71 23:09:00 Test Item Value Reference Range Interpretation Comments Total Protein (test code = Total 6.5 6.4-8.4 Protein) [facility]OqtyfuhGOYVDDGCC1277-83-89 23:09:00 Test Item Value Reference Range Interpretation Comments Albumin Lvl (test code = Albumin Lvl) 2.2 3.5-5.0 [facility] CenterTaezuuqSGFDRDGXS9242-83-33 23:09:00 Test Item Value Reference Range Interpretation Comments Globulin (test code = Globulin) 4.3 2.7-4.2 [facility] CenterClsczxdERECGTJNG2243-29-27 23:09:00 Test Item Value Reference Range Interpretation Comments A/G Ratio (test code = A/G Ratio) 0.5 1 0.7-1.6 [facility] CenterKmcharoLWJQQAFAY6557-81-65 23:09:00 Test Item Value Reference Range Interpretation Comments ALT (test code = ALT) 10 See_Comment [Auto mated message] The system which ge nerated this result transmit delaney reference range : <=65. The reference range was not used to interpr et this result as kiarra l/abnormal. [facility] GwihmtoJQDUGWPNT8188-35-26 23:09:00 Test Item Value Reference Range Interpretation Comments AST (test code = AST) 8 See_Comment [Auto mated message] The system which ge nerated this result transmit delaney reference range : <=37. The reference range was not used to interpr et this result as kiarra l/abnormal. [facility] NsgiethNBBWFSQUZ9255-77-03 23:09:00 Test Item Value Reference Range Interpretation Comments Alk Phos (test code = Alk Phos) 105 39-136 [facility] CenterLvtysttCEAYPFFEL0921-54-35 23:09:00 Test Item Value Reference Range Interpretation Comments Bili Total (test code = Bili Total) 0.3 0.2-1.3 [facility] CenterEoxfqwqDFZQHYAIK3782-90-78 23:09:00 Test Item Value Reference Range Interpretation Comments Bili Direct (test code no gt See_Comment [Aut omated message] The = Bili Direct) system which generated this result tra nsmitted reference range : <=0.3. The reference r kyle was not used to int erpret this result as kiarra l/abnormal. [facility]CkgdkzsASKTAUBDR1321-98-34 23:09:00 Test Item Value Reference Range Interpretation Comments Bili Indirect Unable to See_Comment [Automated (test code = Bili Calculate message] T he system Indirect) which generated this result transmitted reference range : <=1.0. The reference range was not used to interpret this result as normal/abnormal . [facility] HospitalLcswklyYLQYXBQPW6193-99-02 23:09:00 Test Item Value Reference Range Interpretation Comments Vitamin B12 Lvl (test code = Vitamin [phone] B12 Lvl) [facility] HospitalJsocmwrZVIFJCDLB0718-99-72 23:09:00 Test Item Value Reference Range Interpretation Comments Folate Lvl (test code = Folate Lvl) 3.7 [facility] HospitalVmojrdmWKUSMCOFL0436-81-27 23:09:00 Test Item Value Reference Range Interpretation Comments Ferritin Lvl (test code = Ferritin Lvl) 108 5-204 [facility] HospitalMjmlbhgUKEWSQGZW6712-98-23 23:09:00 Test Item Value Reference Range Interpretation Comments Iron (test code = Iron) 26 45-160 [facility] HospitalAhqsixzLSXSGAYDH4479-86-72 23:09:00 Test Item Value Reference Range Interpretation Comments TIBC (test code = TIBC) 198 250-450 [facility] HospitalLvcivzvOACIQAGYY1040-96-02 23:09:00 Test Item Value Reference Range Interpretation Comments % Satur Fe (test code = % Satur Fe) 13 16-45 [facility] HospitalMzsespwTERXIWADOJ8806-03-92 23:09:00 Test Item Value Reference Range Interpretation Comments Segs (test code = Segs) 68.9 45.0-75.0 [facility] HospitalHbwqmasTPWRPFWIVX3135-35-84 23:09:00 Test Item Value Reference Range Interpretation Comments Lymphocytes (test code = Lymphocytes) 22.4 20.0-40.0 [facility] HospitalDdobuufODFERIIHTC1971-10-55 23:09:00 Test Item Value Reference Range Interpretation Comments Monocytes (test code = Monocytes) 5.7 2.0-12.0 [facility] HospitalGppjxbrOAPUZFJEMX3653-68-09 23:09:00 Test Item Value Reference Range Interpretation Comments Eosinophils (test code = 2.6 See_Comment [A utomated message] The Eosinophils) system which ge nerated this result tra nsmitted reference range : <=4.0. The reference r kyle was not used to int erpret this result as normal/abnormal . [facility] HospitalIjxuekhCKAOOMMLJS4045-08-65 23:09:00 Test Item Value Reference Range Interpretation Comments Basophils (test code = 0.4 See_Comment [Aut omated message] The Basophils) system which ge nerated this result tra nsmitted reference range : <=1.0. The reference r kyle was not used to int erpret this result as normal/abnormal . [facility] HospitalTygmgnuEJGGIYKYLE8563-84-44 23:09:00 Test Item Value Reference Range Interpretation Comments Neutrophils # (test code = Neutrophils 8.7 1.5-8.1 #) [facility] HospitalTcmvnzyMLSFLLKIUG1667-19-43 23:09:00 Test Item Value Reference Range Interpretation Comments Lymphocytes # (test code = Lymphocytes 2.8 1.0-5.5 #) [facility] HospitalFljosnnLPLXSHXXUG1460-49-74 23:09:00 Test Item Value Reference Range Interpretation Comments Monocytes # (test code 0.7 See_Comment [Aut omated message] The = Monocytes #) system which generated this result tra nsmitted reference range : <=0.8. The reference r kyle was not used to int erpret this result as normal/abnormal . [facility] HospitalCawbyzwVWAAGKNDSX9254-89-68 23:09:00 Test Item Value Reference Range Interpretation Comments Eosinophils # (test code 0.3 See_Comment [A utomated message] The = Eosinophils #) system whic h generated this result tra nsmitted reference range : <=0.5. The reference r kyle was not used to int erpret this result as normal/abnormal . [facility] HospitalKpptfhbVWXXBZIUCO6759-99-93 23:09:00 Test Item Value Reference Range Interpretation Comments WBC (test code = WBC) 12.6 3.7-10.4 [place] 646402-10-21 23:09:00 Test Item Value Reference Range Interpretation Comments RBC (test code = RBC) 3.13 4.20-5.40 [place] 646402-10-21 23:09:00 Test Item Value Reference Range Interpretation Comments MCV (test code = MCV) 85.6 80.0-98.0 [place] 646402-10-21 23:09:00 Test Item Value Reference Range Interpretation Comments MCH (test code = MCH) 27.2 pg 27.0-31.0 [place] 646402-10-21 23:09:00 Test Item Value Reference Range Interpretation Comments MCHC (test code = MCHC) 31.8 32.0-36.0 [facility] HospitalTxpxtdoGDXOOHIRZB1962-24-80 23:09:00 Test Item Value Reference Range Interpretation Comments RDW (test code = RDW) 12.4 11.5-14.5 [facility] HospitalPaaaewhSOPYYUQQQQ9348-90-54 23:09:00 Test Item Value Reference Range Interpretation Comments Platelet (test code = Platelet) 373 133-450 [facility] HospitalNxazzcdWYKDXWYCYO5728-86-36 23:09:00 Test Item Value Reference Range Interpretation Comments MPV (test code = MPV) 8.2 7.4-10.4 [facility]:SUSC:PT:ISOLATE:ORDQN:[id number] 23:09:00 Test Item Value Reference Range Interpretation Comments Culture: Blood Aerobic Bottle: (test code = Staphylococcus epidermidis Culture: Blood) . Critical Results Called To: Gabe Cantu [facility] [place]: 06/25/2022 06:39 Called By: YAKOV Read Back Ok . Critical Results Called To: DR. LOZOYA AND Paolo CHRISTIAN RN At: 06/25/2022 07:20 Called By: ELIAS Read Back Ok [facility]woodIP[facility]EM:SUSC:PT:ISOLATE:ORDQN:[id number] 23:09:00 Test Item Value Reference Range Interpretation Comments Staphylococcus Staphylococcus epidermidis (test code epidermidis = Staphylococcus epidermidis) [facility] HospitalUmzvcimWLTRKPRNPO4071-29-73 23:09:00 Test Item Value Reference Range Interpretation Comments HIV Ag/Ab 4th Gen Negative *NA*(06/23/22 (test code = HIV 6:09 PM) Ag/Ab 4th Gen) [facility] HospitalGatgftwLBSXRNWYXM9039-40-93 23:09:00 Test Item Value Reference Range Interpretation Comments RPR (test code = RPR) Non Reactive (06/23/22 6:09 PM) [facility] HospitalOydxsvfGRPMMZZOGT7323-63-24 23:09:00 Test Item Value Reference Range Interpretation Comments Hep A IgM (test code = Hep A NON-REACTIVE IgM) [facility] HospitalPgupllfQGOJJXUNUY8029-43-11 23:09:00 Test Item Value Reference Range Interpretation Comments Hep Bs Ag (test code = Hep Bs NON-REACTIVE Ag) [facility] HospitalOtpkqyaJTDAEQAVGD1769-73-40 23:09:00 Test Item Value Reference Range Interpretation Comments Hep B Core IgM (test code = Hep NON-REACTIVE B Core IgM) [facility] CenterMjsqdmkJNKVASVQZO9835-68-68 23:09:00 Test Item Value Reference Range Interpretation Comments Hep C Ab (test code = Hep C Ab) NON-REACTIVE [facility] CenterVktqejkJVSWEIPWYA9029-89-76 23:09:00 Test Item Value Reference Range Interpretation Comments Hep Signal to Cut-Off (test code = Hep 0.07 1 Signal to Cut-Off) [facility] HospitalHpariteRZAOEQKWWW5595-48-06 23:09:00 Test Item Value Reference Range Interpretation Comments HIV Ag/Ab 4th Gen Negative *NA*(06/23/22 (test code = HIV 6:09 PM) Ag/Ab 4th Gen) [facility] HospitalMrpsvimMUXEALPYRR9521-33-77 23:09:00 Test Item Value Reference Range Interpretation Comments RPR (test code = RPR) Non Reactive (06/23/22 6:09 PM) [facility] CenterCulture: [id number] 23:09:00 Test Item Value Reference Range Interpretation Comments Culture: Blood Anaerobic Bottle: (test code = Staphylococcus epidermidis Culture: Blood) , Refer To Culture # [id number] for call notification. [facility] HospitalTunwqoyWSBUAZJHBQ6048-94-86 21:40:00 Test Item Value Reference Range Interpretation Comments Coronavirus (COVID-19) Not Detected NORMAN (test code = (06/23/22 4:40 PM) Coronavirus (COVID-19) NORMAN) [facility] HospitalJdahwclFQAOIHYRVL0727-63-36 21:40:00 Test Item Value Reference Range Interpretation Comments Coronavirus (COVID-19) Not Detected NORMAN (test code = (06/23/22 4:40 PM) Coronavirus (COVID-19) NORMAN) [facility] AND [id number] 21:40:00 Test Item Value Reference Range Interpretation Comments UA Color (test code = Yellow *NA*(06/23/22 UA Color) 4:40 PM) [facility] AND [id number] 21:40:00 Test Item Value Reference Range Interpretation Comments UA Turbidity (test code Slight *ABN*(06/23/22 = UA Turbidity) 4:40 PM) [facility] AND [id number] 21:40:00 Test Item Value Reference Range Interpretation Comments UA Spec Grav (test code = UA Spec 1.018 1 Grav) [facility] AND [id number] 21:40:00 Test Item Value Reference Range Interpretation Comments UA pH (test code = UA pH) 7.0 1 5.0-8.0 [facility] AND [id number] 21:40:00 Test Item Value Reference Range Interpretation Comments UA Protein (test code = UA Negative mg/dL Protein) [facility] AND [id number] 21:40:00 Test Item Value Reference Range Interpretation Comments UA Glucose (test code = UA Negative mg/dL Glucose) [facility] AND [id number] 21:40:00 Test Item Value Reference Range Interpretation Comments UA Ketones (test code = UA Ketones) 20 mg/dL [facility] AND [id number] 21:40:00 Test Item Value Reference Range Interpretation Comments UA Bili (test code = Negative *NA*(06/23/22 UA Bili) 4:40 PM) [facility] AND [id number] 21:40:00 Test Item Value Reference Range Interpretation Comments UA Blood (test code = Negative (06/23/22 4:40 UA Blood) PM) [facility] AND [id number] 21:40:00 Test Item Value Reference Range Interpretation Comments UA Urobilinogen (test code = UA no gt 0.1-1.0 Urobilinogen) [facility] AND [id number] 21:40:00 Test Item Value Reference Range Interpretation Comments UA Nitrite (test code Negative (06/23/22 4:40 = UA Nitrite) PM) [facility] AND [id number] 21:40:00 Test Item Value Reference Range Interpretation Comments UA Leuk Est (test code Small *ABN*(06/23/22 = UA Leuk Est) 4:40 PM) [facility] AND [id number] 21:40:00 Test Item Value Reference Range Interpretation Comments UA Sq Epi (test code = UA Sq Epi) Many /LPF [facility] AND [id number] 21:40:00 Test Item Value Reference Range Interpretation Comments UA WBC (test code = 26 See_Comment [Automa delaney message] The UA WBC) system which ge nerated this result transmit delaney reference range : <=5. The reference range was not used to interpr et this result as kiarra l/abnormal. [facility] [id number] 21:40:00 Test Item Value Reference Range Interpretation Comments UA RBC (test code = 5 See_Comment [Automa delaney message] The UA RBC) system which ge nerated this result transmit delaney reference range : <=2. The reference range was not used to interpr et this result as kiarra l/abnormal. [facility] [id number] 21:40:00 Test Item Value Reference Range Interpretation Comments UA Color (test code = Yellow *NA*(06/23/22 UA Color) 4:40 PM) [facility] [id number] 21:40:00 Test Item Value Reference Range Interpretation Comments UA Turbidity (test code Slight *ABN*(06/23/22 = UA Turbidity) 4:40 PM) [facility] AND [id number] 21:40:00 Test Item Value Reference Range Interpretation Comments UA Spec Grav (test code = UA Spec 1.018 1 Grav) [facility] AND [id number] 21:40:00 Test Item Value Reference Range Interpretation Comments UA pH (test code = UA pH) 7.0 1 5.0-8.0 [facility] [id number] 21:40:00 Test Item Value Reference Range Interpretation Comments UA Protein (test code = UA Negative mg/dL Protein) [facility] AND [id number] 21:40:00 Test Item Value Reference Range Interpretation Comments UA Glucose (test code = UA Negative mg/dL Glucose) [facility] [id number] 21:40:00 Test Item Value Reference Range Interpretation Comments UA Ketones (test code = UA Ketones) 20 mg/dL [facility] AND [id number] 21:40:00 Test Item Value Reference Range Interpretation Comments UA Bili (test code = Negative *NA*(06/23/22 UA Bili) 4:40 PM) [facility] AND [id number] 21:40:00 Test Item Value Reference Range Interpretation Comments UA Blood (test code = Negative (06/23/22 4:40 UA Blood) PM) [facility] AND [id number] 21:40:00 Test Item Value Reference Range Interpretation Comments UA Urobilinogen (test code = UA no gt 0.1-1.0 Urobilinogen) [facility] AND [id number] 21:40:00 Test Item Value Reference Range Interpretation Comments UA Nitrite (test code Negative (06/23/22 4:40 = UA Nitrite) PM) [facility] AND [id number] 21:40:00 Test Item Value Reference Range Interpretation Comments UA Leuk Est (test code Small *ABN*(06/23/22 = UA Leuk Est) 4:40 PM) [facility] AND [id number] 21:40:00 Test Item Value Reference Range Interpretation Comments UA Sq Epi (test code = UA Sq Epi) Many /LPF [facility] AND [id number] 21:40:00 Test Item Value Reference Range Interpretation Comments UA WBC (test code = 26 See_Comment [Automa delaney message] The UA WBC) system which ge nerated this result transmit delaney reference range : <=5. The reference range was not used to interpr et this result as kiarra l/abnormal. [facility] Oswaldo AND [id number] 21:40:00 Test Item Value Reference Range Interpretation Comments UA RBC (test code = 5 See_Comment [Automa delaney message] The UA RBC) system which ge nerated this result transmit delaney reference range : <=2. The reference range was not used to interpr et this result as kiarra l/abnormal. [facility] CenterXzdhsflMKICUX5732-92-69 21:33:15 Test Item Value Reference Range Interpretation Comments RADRPT (test code EXAM: XR ABDOMEN 1 = RADRPT) VIEWDATE: 06/23/2022 15:24 INDICATION: - perforationCOMPARISON: Upper GI series dated 06/22/2022 TECHNIQUE: AP abdomen. Exam quality limited by body habitus.FINDINGS: Lines, tubes and hardware: Telemetry leads overlie the visualized thorax and abdomen. Postoperative changes from prior vertebroplasty present at T11-T12.Lower thorax: Unremarkable where visible.Abdomen and bowel: The bowel appears normal in caliber. Oral contrast and stool are identified within the ascending colon. No subdiaphragmatic air or contrast extravasation to suggest perforation. Phleboliths present within the pelvis..Bones and soft tissues: No acute abnormality. Moderate degenerative changes.IMPRESSION: 1. Nonobstructive bowel gas pattern. Evaluation for free air limited on supine abdominal radiograph.2. Oral contrast and stool are identified within the ascending colon. No pathologic dilation of the bowel loops.3. Hardware as above. [place] [id number] 21:22:43 Test Item Value Reference Range Interpretation Comments RADRPT (test code EXAM: XR CHEST 1 VIEWDATE: = RADRPT) 06/23/2022 15:24INDICATION: - PNACOMPARISON: June 20, 2022TECHNIQUE: AP chestIMPRESSION: The cardiomediastinal silhouette is normal in size. Calcifications in the aortic knob. No pleural effusions or pneumothorax. The lungs are clear. 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 Degenerative changes along the thoracic spine. [place] [id number] 11:58:38 Test Item Value Reference Range Interpretation Comments RADRPT (test code PROCEDURE INFORMATION: = RADRPT) Exam: FL Upper Gastrointestinal Tract without KUB Exam date and time: 06/22/2022 4:53 PM Age: 56 years old Clinical indication: /r/o esophageal leak TECHNIQUE: Imaging protocol: Radiologic examination, gastrointestinal tract, upper with or without delayed images, without KUB. Guided with fluoroscopy. COMPARISON: CHEST ABDOMEN PELVIS W CONTRAST CT 06/20/2022 9:15 PM RADIATION DOSE METRICS: Fluoroscopy time (seconds): seconds= 39 Number of fluoro spot images: images= 14 Reference air kerma (IRVIN): 17.49 mGy FINDINGS: In the semi-erect supine position, dilute Omnipaque was ingested and multiple digital images were obtained.The upper cervical esophagus appears normal. Beginning at the level of the aortic arch, there is minimal opacification of the remainder of the esophagus which appears dilated with apparent large intraluminal filling defect. This corresponds to the hemorrhagic clot noted at endoscopy.Small amount of contrast bypasses this area to minimally opacify the stomach.No mediastinal contrast extravasation.IMPRESSION: Grossly abnormal esophagus. See above.Findings discussed with Dr. Salcedo.Toñito Weiss MD On 06/23/2022 06:57:24; [id number] [facility]2022-10-21 11:00:00 Test Item Value Reference Range Interpretation Comments Glucose POC (test code = Glucose POC) 140 70-99 [place] [id number] 11:00:00 Test Item Value Reference Range Interpretation Comments Gluc POC Comment 1 (test code Notified RN/MD = Gluc POC Comment 1) [place] [id number] 11:00:00 Test Item Value Reference Range Interpretation Comments Gluc POC Comment 2 (test code = Cleaned Meter Gluc POC Comment 2) [facility]egzdhkAGTJZACUZ4145-41-33 08:40:00 Test Item Value Reference Range Interpretation Comments Phosphorus (test code = Phosphorus) 1.7 2.5-4.5 [place] 119502-10-21 08:40:00 Test Item Value Reference Range Interpretation Comments Magnesium Lvl (test code = Magnesium 1.8 1.8-2.4 Lvl) [facility] HospitalHyqgiokLKGUEWEEB5992-22-99 08:40:00 Test Item Value Reference Range Interpretation Comments Glucose Lvl (test code = Glucose Lvl) 155 70-99 [place] [address]-10-21 08:40:00 Test Item Value Reference Range Interpretation Comments BUN (test code = BUN) 10 7-22 [facility] HospitalItroastVDMDUQNPS1448-45-39 08:40:00 Test Item Value Reference Range Interpretation Comments Creatinine Lvl (test code = Creatinine 0.41 0.50-1.40 Lvl) [facility] HospitalZqndzuaEYQNSYBTA9325-74-36 08:40:00 Test Item Value Reference Range Interpretation Comments Sodium Lvl (test code = Sodium Lvl) 135 135-145 [facility] HospitalQketoecFQKFUHXRR2811-42-23 08:40:00 Test Item Value Reference Range Interpretation Comments Potassium Lvl (test code = Potassium 3.1 3.5-5.1 Lvl) [facility] HospitalGksveatTAYFGQXEY9589-17-42 08:40:00 Test Item Value Reference Range Interpretation Comments Chloride Lvl (test code = Chloride Lvl) 103 95-109 [place] 119502-10-21 08:40:00 Test Item Value Reference Range Interpretation Comments CO2 (test code = CO2) 24 24-32 [place] 119502-10-21 08:40:00 Test Item Value Reference Range Interpretation Comments Calcium Lvl (test code = Calcium Lvl) 8.1 8.5-10.5 [place] 119502-10-21 08:40:00 Test Item Value Reference Range Interpretation Comments AGAP (test code = AGAP) 11.1 10.0-20.0 [place] 119502-10-21 08:40:00 Test Item Value Reference Range Interpretation Comments eGFR (test code = eGFR) 117 [facility] HospitalWhutorhXISBPAZPVI4028-89-35 08:40:00 Test Item Value Reference Range Interpretation Comments Hgb (test code = Hgb) 8.5 12.0-16.0 [place] 646402-10-21 08:40:00 Test Item Value Reference Range Interpretation Comments Hct (test code = Hct) 25.6 36.0-48.0 [place] 646402-10-21 08:40:00 Test Item Value Reference Range Interpretation Comments WBC (test code = WBC) 15.4 3.7-10.4 [place] 646402-10-21 08:40:00 Test Item Value Reference Range Interpretation Comments RBC (test code = RBC) 3.02 4.20-5.40 [facility] HospitalMomvsdiCPVWERSNKS0914-14-41 08:40:00 Test Item Value Reference Range Interpretation Comments MCV (test code = MCV) 84.7 80.0-98.0 [place] 646402-10-21 08:40:00 Test Item Value Reference Range Interpretation Comments MCH (test code = MCH) 28.6 pg 27.0-31.0 [facility] HospitalKzrimhxPCWAKFYRBB3541-39-69 08:40:00 Test Item Value Reference Range Interpretation Comments MCHC (test code = MCHC) 33.7 32.0-36.0 [facility] HospitalQujmwzhANXHECSDFJ0767-96-26 08:40:00 Test Item Value Reference Range Interpretation Comments RDW (test code = RDW) 12.4 11.5-14.5 [place] 646402-10-21 08:40:00 Test Item Value Reference Range Interpretation Comments Platelet (test code = Platelet) 378 133-450 [facility] HospitalMoxlvmuHBZXRAYYMS0437-78-06 08:40:00 Test Item Value Reference Range Interpretation Comments MPV (test code = MPV) 8.0 7.4-10.4 [place] 646402-10-21 08:40:00 Test Item Value Reference Range Interpretation Comments Segs (test code = Segs) 67.3 45.0-75.0 [place] 646402-10-21 08:40:00 Test Item Value Reference Range Interpretation Comments Lymphocytes (test code = Lymphocytes) 25.2 20.0-40.0 [place] 229[address]-10-21 08:40:00 Test Item Value Reference Range Interpretation Comments Monocytes (test code = Monocytes) 4.2 2.0-12.0 [place] [address]-10-21 08:40:00 Test Item Value Reference Range Interpretation Comments Eosinophils (test code = 2.8 See_Comment [A utomated message] The Eosinophils) system which ge nerated this result tra nsmitted reference range : <=4.0. The reference r kyle was not used to int erpret this result as normal/abnormal . [place] [address]-10-21 08:40:00 Test Item Value Reference Range Interpretation Comments Basophils (test code = 0.5 See_Comment [Aut omated message] The Basophils) system which ge nerated this result tra nsmitted reference range : <=1.0. The reference r kyle was not used to int erpret this result as normal/abnormal . [place] [id number] 08:40:00 Test Item Value Reference Range Interpretation Comments Neutrophils # (test code = Neutrophils 10.3 1.5-8.1 #) [place] [address]-10-21 08:40:00 Test Item Value Reference Range Interpretation Comments Lymphocytes # (test code = Lymphocytes 3.9 1.0-5.5 #) [place] [address]-10-21 08:40:00 Test Item Value Reference Range Interpretation Comments Monocytes # (test code 0.6 See_Comment [Aut omated message] The = Monocytes #) system which generated this result tra nsmitted reference range : <=0.8. The reference r kyle was not used to int erpret this result as normal/abnormal . [place] [address]-10-21 08:40:00 Test Item Value Reference Range Interpretation Comments Eosinophils # (test code 0.4 See_Comment [A utomated message] The = Eosinophils #) system whic h generated this result tra nsmitted reference range : <=0.5. The reference r kyle was not used to int erpret this result as normal/abnormal . [facility] [id number] 08:40:00 Test Item Value Reference Range Interpretation Comments Basophils # (test code 0.1 See_Comment [Aut omated message] The = Basophils #) system which generated this result tra nsmitted reference range : <=0.2. The reference r kyle was not used to int erpret this result as normal/abnormal . [id number] 17:06:00 Test Item Value Reference Range Interpretation Comments Trig (test code = Trig) 94 [facility]annaannTOBRAMYCIN:SUSC:PT:ISOLATE:ORDQN:[id number] 15:03:00 Test Item Value Reference Range Interpretation Comments Culture: Urine (test >100,000 CFU/mL code = Culture: Escherichia coli Urine) [facility] JoannaannTOBRAMYCIN:SUSC:PT:ISOLATE:ORDQN:[id number] 15:03:00 Test Item Value Reference Range Interpretation Comments Escherichia coli (test code Escherichia coli = Escherichia coli) [facility] [id number] 15:03:00 Test Item Value Reference Range Interpretation Comments UA Color (test code = Yellow *NA*(06/22/22 UA Color) 10:03 AM) [facility] AND [id number] 15:03:00 Test Item Value Reference Range Interpretation Comments UA Turbidity (test code Slight Cloudy = UA Turbidity) (06/22/22 10:03 AM) [facility] [id number] 15:03:00 Test Item Value Reference Range Interpretation Comments UA Spec Grav (test code = UA Spec 1.020 1 Grav) [facility] AND [id number] 15:03:00 Test Item Value Reference Range Interpretation Comments UA pH (test code = UA pH) 6.0 1 5.0-8.0 [facility] [id number] 15:03:00 Test Item Value Reference Range Interpretation Comments UA Protein (test code Negative (06/22/22 = UA Protein) 10:03 AM) [facility] [id number] 15:03:00 Test Item Value Reference Range Interpretation Comments UA Glucose (test code Negative (06/22/22 = UA Glucose) 10:03 AM) [facility] [id number] 15:03:00 Test Item Value Reference Range Interpretation Comments UA Ketones (test code Negative *NA*(06/22/22 = UA Ketones) 10:03 AM) [facility] [id number] 15:03:00 Test Item Value Reference Range Interpretation Comments UA Bili (test code = Negative *NA*(06/22/22 UA Bili) 10:03 AM) [facility] [id number] 15:03:00 Test Item Value Reference Range Interpretation Comments UA Blood (test code = Negative (06/22/22 10:03 UA Blood) AM) [facility] [id number] 15:03:00 Test Item Value Reference Range Interpretation Comments UA Urobilinogen (test code = UA 0.2 0.1-1.0 Urobilinogen) [facility] [id number] 15:03:00 Test Item Value Reference Range Interpretation Comments UA Nitrite (test code Negative (06/22/22 = UA Nitrite) 10:03 AM) [facility] [id number] 15:03:00 Test Item Value Reference Range Interpretation Comments UA Leuk Est (test Moderate *ABN*(06/22/22 code = UA Leuk Est) 10:03 AM) [facility] [id number] 15:03:00 Test Item Value Reference Range Interpretation Comments UA Sq Epi (test code = None Seen (06/22/22 UA Sq Epi) 10:03 AM) [facility] [id number] 15:03:00 Test Item Value Reference Range Interpretation Comments UA WBC (test code = UA WBC) 21-50 /HPF [facility] [id number] 15:03:00 Test Item Value Reference Range Interpretation Comments UA RBC (test None Seen See_Comment [Automated mes taj] code = UA RBC) (06/22/22 10:03 The system which AM) generated this result transmitted ref erence range: <=2. The reference range was not used to int erpret this result as normal/abnormal . [facility] [id number] 15:03:00 Test Item Value Reference Range Interpretation Comments UA Bacteria (test code = UA Many /HPF Bacteria) [facility] [id number] 15:03:00 Test Item Value Reference Range Interpretation Comments UA Mucus (test code = None Seen (06/22/22 UA Mucus) 10:03 AM) [facility] [id number] 02:44:00 Test Item Value Reference Range Interpretation Comments S. aureus (test code = Not Detected (06/21/22 S. aureus) 9:44 PM) [facility] [id number] 02:44:00 Test Item Value Reference Range Interpretation Comments S. epidermidis (test Detected code = S. epidermidis) *ABN*(06/21/22 9:44 PM) [facility]annHILE[facility]ULAR [id number] 02:44:00 Test Item Value Reference Range Interpretation Comments S. lugdunensis (test Not Detected code = S. lugdunensis) (06/21/22 9:44 PM) [facility]ann[facility]LE[facility] [id number] 02:44:00 Test Item Value Reference Range Interpretation Comments S. anginosus grp (test Not Detected (06/21/22 code = S. anginosus 9:44 PM) grp) [facility]ann[facility]LE[facility] [id number] 02:44:00 Test Item Value Reference Range Interpretation Comments S. agalactiae (test code Not Detected = S. agalactiae) (06/21/22 9:44 PM) [facility] [id number] 02:44:00 Test Item Value Reference Range Interpretation Comments S. pneumoniae (test code Not Detected = S. pneumoniae) (06/21/22 9:44 PM) [facility]ann[facility]LE[facility] [id number] 02:44:00 Test Item Value Reference Range Interpretation Comments S. pyogenes (test code Not Detected (06/21/22 = S. pyogenes) 9:44 PM) [facility]annHILE[facility] [id number] 02:44:00 Test Item Value Reference Range Interpretation Comments E. faecalis (test code Not Detected (06/21/22 = E. faecalis) 9:44 PM) [facility] [id number] 02:44:00 Test Item Value Reference Range Interpretation Comments E. faecium (test code Not Detected (06/21/22 = E. faecium) 9:44 PM) [facility] [id number] 02:44:00 Test Item Value Reference Range Interpretation Comments Staphylococcus spp. (test Detected code = Staphylococcus *ABN*(06/21/22 9:44 spp.) PM) [facility] [id number] 02:44:00 Test Item Value Reference Range Interpretation Comments Streptococcus spp. (test Not Detected code = Streptococcus (06/21/22 9:44 PM) spp.) [facility] [id number] 02:44:00 Test Item Value Reference Range Interpretation Comments Listeria spp. (test Not Detected (06/21/22 code = Listeria spp.) 9:44 PM) [facility] [id number] 02:44:00 Test Item Value Reference Range Interpretation Comments mecA Methicillin Not Detected Resistance (test code = (06/21/22 9:44 PM) mecA Methicillin Resistance) [facility] [id number] 02:44:00 Test Item Value Reference Range Interpretation Comments Neela Vancomycin Not Detected Resistance (test code = (06/21/22 9:44 PM) Neela Vancomycin Resistance) [facility] [id number] 02:44:00 Test Item Value Reference Range Interpretation Comments vanB Vancomycin Not Detected Resistance (test code = (06/21/22 9:44 PM) vanB Vancomycin Resistance) [facility] [id number] 02:44:00 Test Item Value Reference Range Interpretation Comments Culture: Blood Staphylococcus species, not (test code = aureus, not S. lugdunensis, Culture: Blood) DETECTED by Verigene nucleic acid test. . Aerobic Bottle: Staphylococcus epidermidis . Critical Results Called To: Rochelle@ DN6N At: 06/23/2022 08:15 Called By: MS Read Back Ok [facility] CenterannStaphylococcus [id number] 02:44:00 Test Item Value Reference Range Interpretation Comments Staphylococcus Staphylococcus epidermidis (test code epidermidis = Staphylococcus epidermidis) [facility] Center[facility]: [id number] 02:22:00 Test Item Value Reference Range Interpretation Comments Culture: Blood (test code No Growth At 3 Days = Culture: Blood) [facility] BANK [id number] 10:05:00 Test Item Value Reference Range Interpretation Comments ABO/Rh (test code = ABO/Rh) O POS [facility] [employer] [facility] [id number] 10:05:00 Test Item Value Reference Range Interpretation Comments Antibody Scrn (test Negative (06/21/22 code = Antibody Scrn) 5:05 AM) [facility] AND [id number] 05:51:00 Test Item Value Reference Range Interpretation Comments Occult Bld Stl (test Negative (06/21/22 code = Occult Bld Stl) 12:51 AM) [facility] AND [id number] 05:51:00 Test Item Value Reference Range Interpretation Comments Occult Bld Stl (test Negative (06/21/22 code = Occult Bld Stl) 12:51 AM) [facility] [employer] [id number] 03:57:00 Test Item Value Reference Range Interpretation Comments Glucose Lvl (test code = Glucose Lvl) 182 70-99 [facility] [employer] [id number] 03:57:00 Test Item Value Reference Range Interpretation Comments BUN (test code = BUN) 16 7-22 [facility] [employer] [id number] 03:57:00 Test Item Value Reference Range Interpretation Comments Creatinine Lvl (test code = Creatinine 0.59 0.50-1.40 Lvl) [facility] [employer] [id number] 03:57:00 Test Item Value Reference Range Interpretation Comments Sodium Lvl (test code = Sodium Lvl) 136 135-145 [facility] [employer] [id number] 03:57:00 Test Item Value Reference Range Interpretation Comments Potassium Lvl (test code = Potassium 3.7 3.5-5.1 Lvl) [facility] [employer] [id number] 03:57:00 Test Item Value Reference Range Interpretation Comments Chloride Lvl (test code = Chloride Lvl) 96 95-109 [facility] [employer] [id number] 03:57:00 Test Item Value Reference Range Interpretation Comments CO2 (test code = CO2) 34 24-32 [facility] [employer] [id number] 03:57:00 Test Item Value Reference Range Interpretation Comments Calcium Lvl (test code = Calcium Lvl) 9.5 8.5-10.5 [facility] [employer] [id number] 03:57:00 Test Item Value Reference Range Interpretation Comments Total Protein (test code = Total 8.4 6.4-8.4 Protein) [facility] CenterDecide.com [id number] 03:57:00 Test Item Value Reference Range Interpretation Comments Albumin Lvl (test code = Albumin Lvl) 2.6 3.5-5.0 [facility] [employer] [id number] 03:57:00 Test Item Value Reference Range Interpretation Comments ALT (test code = ALT) 21 See_Comment [Auto mated message] The system which ge nerated this result transmit delaney reference range : <=65. The reference range was not used to interpr et this result as kiarra l/abnormal. [facility] [employer] [id number] 03:57:00 Test Item Value Reference Range Interpretation Comments AST (test code = AST) 13 See_Comment [Auto mated message] The system which ge nerated this result transmit delaney reference range : <=37. The reference range was not used to interpr et this result as kiarra l/abnormal. [facility] [employer] [id number] 03:57:00 Test Item Value Reference Range Interpretation Comments Alk Phos (test code = Alk Phos) 171 39-136 [facility] [employer] [id number] 03:57:00 Test Item Value Reference Range Interpretation Comments Bili Total (test code = Bili Total) 0.3 0.2-1.3 [facility] [employer] [id number] 03:57:00 Test Item Value Reference Range Interpretation Comments AGAP (test code = AGAP) 9.7 10.0-20.0 [facility] [employer] [id number] 03:57:00 Test Item Value Reference Range Interpretation Comments B/C Ratio (test code = B/C Ratio) 27 1 6-25 [facility] [employer] [id number] 03:57:00 Test Item Value Reference Range Interpretation Comments Globulin (test code = Globulin) 5.8 2.7-4.2 [facility] [employer] [id number] 03:57:00 Test Item Value Reference Range Interpretation Comments A/G Ratio (test code = A/G Ratio) 0.4 1 0.7-1.6 [facility] [employer] [id number] 03:57:00 Test Item Value Reference Range Interpretation Comments eGFR (test code = eGFR) 107 [facility]wPDQQECWHF5899-51-27 03:57:00 Test Item Value Reference Range Interpretation Comments Glucose Lvl (test code = Glucose Lvl) 182 70-99 [facility] [id number] 03:57:00 Test Item Value Reference Range Interpretation Comments BUN (test code = BUN) 16 7-22 [facility] HospitalHllvuzsNDPYVGXJF9505-05-01 03:57:00 Test Item Value Reference Range Interpretation Comments Creatinine Lvl (test code = Creatinine 0.59 0.50-1.40 Lvl) [facility] [id number] 03:57:00 Test Item Value Reference Range Interpretation Comments Sodium Lvl (test code = Sodium Lvl) 136 135-145 [facility] HospitalQxhnzpnMYDYIABPB5980-43-25 03:57:00 Test Item Value Reference Range Interpretation Comments Potassium Lvl (test code = Potassium 3.7 3.5-5.1 Lvl) [facility] Ho[id number] 03:57:00 Test Item Value Reference Range Interpretation Comments Chloride Lvl (test code = Chloride Lvl) 96 95-109 [facility] HospitalOshoumtPWDZZQKVI3086-25-70 03:57:00 Test Item Value Reference Range Interpretation Comments CO2 (test code = CO2) 34 24-32 [facility] H[id number] 03:57:00 Test Item Value Reference Range Interpretation Comments Calcium Lvl (test code = Calcium Lvl) 9.5 8.5-10.5 [facility] HospitalSvrdlewGUMDOYIUC1814-85-18 03:57:00 Test Item Value Reference Range Interpretation Comments Total Protein (test code = Total 8.4 6.4-8.4 Protein) [facility] HospitalMebhmlgTNLBSPUSH1402-37-22 03:57:00 Test Item Value Reference Range Interpretation Comments Albumin Lvl (test code = Albumin Lvl) 2.6 3.5-5.0 [facility] HospitalJliwqgtAUVSSFMMG5414-52-73 03:57:00 Test Item Value Reference Range Interpretation Comments ALT (test code = ALT) 21 See_Comment [Auto mated message] The system which ge nerated this result transmit delaney reference range : <=65. The reference range was not used to interpr et this result as kiarra l/abnormal. [facility] HospitalSkihvsvROBLYODDO0361-66-90 03:57:00 Test Item Value Reference Range Interpretation Comments AST (test code = AST) 13 See_Comment [Auto mated message] The system which ge nerated this result transmit delaney reference range : <=37. The reference range was not used to interpr et this result as kiarra l/abnormal. [facility] CenterKbkmqprUJMERGEDP3386-94-28 03:57:00 Test Item Value Reference Range Interpretation Comments Alk Phos (test code = Alk Phos) 171 39-136 [facility] CenterXvgehzcIQQXILRFE1130-71-86 03:57:00 Test Item Value Reference Range Interpretation Comments Bili Total (test code = Bili Total) 0.3 0.2-1.3 [facility] CenterWdoqeauKWEGPEQGW0068-44-39 03:57:00 Test Item Value Reference Range Interpretation Comments AGAP (test code = AGAP) 9.7 10.0-20.0 [facility] [id number] 03:57:00 Test Item Value Reference Range Interpretation Comments B/C Ratio (test code = B/C Ratio) 27 1 6-25 [facility] CenterRpdojbcTSVNTDNCT0689-63-18 03:57:00 Test Item Value Reference Range Interpretation Comments Globulin (test code = Globulin) 5.8 2.7-4.2 [facility] [id number] 03:57:00 Test Item Value Reference Range Interpretation Comments A/G Ratio (test code = A/G Ratio) 0.4 1 0.7-1.6 [facility] CenterDxngpjxSLNOSDXYX8539-51-45 03:57:00 Test Item Value Reference Range Interpretation Comments eGFR (test code = eGFR) 107 [facility] CenterHtmnvrxYOYXYQTJPL7004-63-29 03:57:00 Test Item Value Reference Range Interpretation Comments PT (test code = PT) 13.8 s 12.0-14.7 [facility] CenterUwzdeulDOVBPVMMPH5433-71-02 03:57:00 Test Item Value Reference Range Interpretation Comments INR (test code = INR) 1.07 1 0.85-1.17 [facility] CenterUxjwzvnGYEAQJLAWI3315-59-39 03:57:00 Test Item Value Reference Range Interpretation Comments PTT (test code = PTT) 29.4 s 22.9-35.8 [facility] CenterDphuiguJUOFLGAHSS5605-68-73 03:57:00 Test Item Value Reference Range Interpretation Comments PT (test code = PT) 13.8 s 12.0-14.7 [facility]IkyskxwMGUXYLAUNR7940-02-93 03:57:00 Test Item Value Reference Range Interpretation Comments INR (test code = INR) 1.07 1 0.85-1.17 [facility] HospitalEupbhjaAAFRCWPYEY5342-67-92 03:57:00 Test Item Value Reference Range Interpretation Comments PTT (test code = PTT) 29.4 s 22.9-35.8 [facility] [id number] 02:57:46 Test Item Value Reference Range Interpretation Comments RADRPT (test code Radiation Dose CTDIVOL = 0 = RADRPT) (mGy): DLP = 853.1 (mGy-cm)PROCEDURE INFORMATION: Exam: CT Chest With Contrast; Diagnostic Exam date and time: 06/20/2022 9:15 PM Age: 56 years old Clinical indication: Nausea and vomiting; Cough; Additional info: /hemoptysis, cough, nausea TECHNIQUE: Imaging protocol: Diagnostic computed tomography of the chest with contrast. Radiation optimization: All CT scans at this facility use at least one of these dose optimization techniques: automated exposure control; mA and/or kV adjustment per patient size (includes targeted exams where dose is matched to clinical indication); or iterative reconstruction. Contrast material: OMNI 350; Contrast volume: 85 ml; Contrast route: INTRAVENOUS (IV); COMPARISON: CHEST 1VIEW DX 06/20/2022 8:28 PM RADIATION DOSE METRICS: Total DLP (mGy-cm): 853.1 FINDINGS: Lungs: No consolidation. No masses. Pleural spaces: Unremarkable. No pneumothorax. No pleural effusion. Heart: No cardiomegaly. No pericardial effusion. Mediastinal space: Marked circumferential wall thickening seen diffusely in the esophagus, compressing the lumen. Mild edematous changes surround the esophagus. Lymph nodes: No enlarged lymph nodes. Vasculature: Unremarkable. No aortic aneurysm. Bones/joints: Vertebral cement augmentation changes of T12. Remaining osseous structures appear grossly unremarkable. Soft tissues: Within normal limits. No detected fluid collection. MS OCEDURE INFORMATION: Exam: CT Abdomen And Pelvis With Contrast Exam date and time: 06/20/2022 9:15 PM Age: 56 years old Clinical indication: Nausea and vomiting; Cough; Additional info: /hemoptysis, cough, nausea TECHNIQUE: Imaging protocol: Computed tomography of the abdomen and pelvis with contrast. Radiation optimization: All CT scans at this facility use at least one of these dose optimization techniques: automated exposure control; mA and/or kV adjustment per patient size (includes targeted exams where dose is matched to clinical indication); or iterative reconstruction. Contrast material: OMNI 350; Contrast volume: 85 ml; Contrast route: INTRAVENOUS (IV); COMPARISON: CHEST 1VIEW DX 06/20/2022 8:28 PM RADIATION DOSE METRICS: Total DLP (mGy-cm): 853.1 FINDINGS: Liver: Contours appear normal. Gallbladder and bile ducts: No radiodense gallstones. No pericholecystic fluid. No detected ductal dilatation. Pancreas: No surrounding inflammation. Spleen: Diffusely lobular contours and heterogeneous parenchyma. Adrenal glands: No detected lesions. Kidneys and ureters: Kidneys normal in size and contour. No renal stones. Visualized portions of bilateral collecting systems demonstrate no hydronephrosis. Distal ureters not well assessed, but no obvious calcifications along the expected courses. Stomach and bowel: No obstructive or inflammatory pattern detected. Appendix: No inflammatory changes. Intraperitoneal space: No detected organized fluid collection. No free air. Vasculature: Hgpz-rz-nxoyplzj aortic atherosclerosis. No aneurysmal dilatation. Lymph nodes: No pathologically enlarged lymph nodes detected. Urinary bladder: Mild amount of air present in the anterior urinary bladder lumen. Reproductive: Uterus and bilateral ovaries appear grossly normal in size and contour. Bones/joints: No detected acute or aggressive bone abnormality. Soft tissues: Tiny fat filled midline umbilical hernia without inflammation of the herniated fat. Otherwise unremarkable. IM PRESSION: CT Chest With Contrast; Diagnostic Marked circumferential wall thickening seen diffusely in the esophagus, compressing the lumen. Mild edematous changes surround the esophagus. Please evaluate clinically. If indicated, further assessment of the esophageal mucosa can be performed with endoscopy. CT Abdomen And Pelvis With Contrast 1. Mild amount of air present in the anterior urinary bladder lumen. If there has not been a recent history of catheterization, findings are concerning for gas-forming organism. 2. Nonspecific changes of the spleen, including heterogeneous parenchymal appearance and lobulated contours. Findings appear chronic in nature. Please evaluate clinically. Dontae Croft MD On 06/20/2022 21:57:25; [id number] [facility] NilvgvqFTZVJEXZIY3017-03-62 02:33:00 Test Item Value Reference Range Interpretation Comments Coronavirus (COVID-19) Not Detected NORMAN (test code = (06/20/22 9:33 PM) Coronavirus (COVID-19) NORMAN) [facility] CenterSfdyautSJJYPSDZXF9544-73-05 02:33:00 Test Item Value Reference Range Interpretation Comments Coronavirus (COVID-19) Not Detected NORMAN (test code = (06/20/22 9:33 PM) Coronavirus (COVID-19) NORMAN) [facility] CenterZquaenvNOEOWZ8493-66-75 02:07:43 Test Item Value Reference Range Interpretation Comments RADRPT (test code PROCEDURE INFORMATION: = RADRPT) Exam: XR Chest Exam date and time: 06/20/2022 8:28 PM Age: 56 years old Clinical indication: /cp; Chest pain. TECHNIQUE: Imaging protocol: Radiologic exam of the chest. Views: 1 view. COMPARISON: No relevant prior studies available. FINDINGS: Lungs: Well inflated without consolidation. Pleural spaces: Unremarkable. No pleural effusion. No pneumothorax. Heart/Mediastinum: Normal without cardiomegaly or mass. Bones/joints: No acute osseous abnormality. IMPRESSION: No acute cardiopulmonary findings. Kwadwo Tran MD On 06/20/2022 21:06:20; [id number] [facility] [employer] [id number] 00:50:00 Test Item Value Reference Range Interpretation Comments ABO/Rh (test code = ABO/Rh) O POS [employer] [id number] 00:50:00 Test Item Value Reference Range Interpretation Comments Antibody Scrn (test Negative (06/20/22 code = Antibody Scrn) 7:50 PM) [facility] [id number] 00:50:00 Test Item Value Reference Range Interpretation Comments ABO/Rh (test code = ABO/Rh) O POS [place] [id number] 00:50:00 Test Item Value Reference Range Interpretation Comments Antibody Scrn (test Negative (06/20/22 code = Antibody Scrn) 7:50 PM) [facility] [employer] [id number] 00:50:00 Test Item Value Reference Range Interpretation Comments Glucose Lvl (test code = Glucose Lvl) 154 70-99 [place] [id number] 00:50:00 Test Item Value Reference Range Interpretation Comments BUN (test code = BUN) 18 7-22 [facility]2022-10-19 00:50:00 Test Item Value Reference Range Interpretation Comments Creatinine Lvl (test code = Creatinine 0.65 0.50-1.40 Lvl) [facility]2022-10-19 00:50:00 Test Item Value Reference Range Interpretation Comments Sodium Lvl (test code = Sodium Lvl) 137 135-145 [place] [id number] 00:50:00 Test Item Value Reference Range Interpretation Comments Potassium Lvl (test code = Potassium 3.9 3.5-5.1 Lvl) [facility]2022-10-19 00:50:00 Test Item Value Reference Range Interpretation Comments Chloride Lvl (test code = Chloride Lvl) 99 95-109 [facility]2022-10-19 00:50:00 Test Item Value Reference Range Interpretation Comments CO2 (test code = CO2) 31 24-32 [place] [id number] 00:50:00 Test Item Value Reference Range Interpretation Comments Calcium Lvl (test code = Calcium Lvl) 9.9 8.5-10.5 [facility]2022-10-19 00:50:00 Test Item Value Reference Range Interpretation Comments Total Protein (test code = Total 9.0 6.4-8.4 Protein) [place] [id number] 00:50:00 Test Item Value Reference Range Interpretation Comments Albumin Lvl (test code = Albumin Lvl) 2.6 3.5-5.0 [place] [id number] 00:50:00 Test Item Value Reference Range Interpretation Comments ALT (test code = ALT) 23 See_Comment [Auto mated message] The system which ge nerated this result transmit delaney reference range : <=65. The reference range was not used to interpr et this result as kiarra l/abnormal. [place] [id number] 00:50:00 Test Item Value Reference Range Interpretation Comments AST (test code = AST) 26 See_Comment [Auto mated message] The system which ge nerated this result transmit delaney reference range : <=37. The reference range was not used to interpr et this result as kiarra l/abnormal. [facility] [id number] 00:50:00 Test Item Value Reference Range Interpretation Comments Alk Phos (test code = Alk Phos) 181 39-136 [facility]2022-10-19 00:50:00 Test Item Value Reference Range Interpretation Comments Bili Total (test code = Bili Total) 0.4 0.2-1.3 [facility]2022-10-19 00:50:00 Test Item Value Reference Range Interpretation Comments AGAP (test code = AGAP) 10.9 10.0-20.0 [facility]2022-10-19 00:50:00 Test Item Value Reference Range Interpretation Comments B/C Ratio (test code = B/C Ratio) 28 1 6-25 [facility]2022-10-19 00:50:00 Test Item Value Reference Range Interpretation Comments Globulin (test code = Globulin) 6.4 2.7-4.2 [facility] [id number] 00:50:00 Test Item Value Reference Range Interpretation Comments A/G Ratio (test code = A/G Ratio) 0.4 1 0.7-1.6 [facility] [id number] 00:50:00 Test Item Value Reference Range Interpretation Comments eGFR (test code = eGFR) 105 [facility]76 00:50:00 Test Item Value Reference Range Interpretation Comments S Preg (test code = S Negative *NA*(06/20/22 Preg) 7:50 PM) [facility] CenterEebtxsdAYONQPQQHOOZL1801-16-70 00:50:00 Test Item Value Reference Range Interpretation Comments S Preg (test code = S Negative *NA*(06/20/22 Preg) 7:50 PM) [facility]WbwieaaLIRFMKUMXQ6059-80-57 00:50:00 Test Item Value Reference Range Interpretation Comments WBC (test code = WBC) 16.9 3.7-10.4 [facility] HospitalIaxchcxUVZNDCPAGX1671-66-94 00:50:00 Test Item Value Reference Range Interpretation Comments RBC (test code = RBC) 4.52 4.20-5.40 [facility] HospitalYawystoITCXACIYJV1168-17-36 00:50:00 Test Item Value Reference Range Interpretation Comments Hgb (test code = Hgb) 13.0 12.0-16.0 [facility] HospitalAfnblkwWJMDXFZZCN8082-04-63 00:50:00 Test Item Value Reference Range Interpretation Comments Hct (test code = Hct) 39.0 36.0-48.0 [facility] HospitalLzggeatVUPZDBVIHZ9341-26-37 00:50:00 Test Item Value Reference Range Interpretation Comments MCV (test code = MCV) 86.1 80.0-98.0 [facility] HospitalTqqlvpcPUEMAWFWUB5235-31-06 00:50:00 Test Item Value Reference Range Interpretation Comments MCH (test code = MCH) 28.7 pg 27.0-31.0 [facility] HospitalTqbbkcvBOQDLQZLRT6201-98-04 00:50:00 Test Item Value Reference Range Interpretation Comments MCHC (test code = MCHC) 33.3 32.0-36.0 [facility] HospitalEwapyfcSZRNVMFFBD4412-90-20 00:50:00 Test Item Value Reference Range Interpretation Comments RDW (test code = RDW) 12.8 11.5-14.5 [facility] H[id number] 00:50:00 Test Item Value Reference Range Interpretation Comments Platelet (test code = Platelet) 488 133-450 [facility] HospitalSsvakvrRSUKXTDYCC5996-83-97 00:50:00 Test Item Value Reference Range Interpretation Comments MPV (test code = MPV) 8.3 7.4-10.4 [facility] HospitalZrraxpiMCBBYZEUYN8692-40-04 00:50:00 Test Item Value Reference Range Interpretation Comments Segs (test code = Segs) 72.4 45.0-75.0 [facility] HospitalGfzjuvbVOPMIYGSGR6239-19-33 00:50:00 Test Item Value Reference Range Interpretation Comments Lymphocytes (test code = Lymphocytes) 19.8 20.0-40.0 [facility] HospitalZgsvgobYXUUQAHZNY5183-48-40 00:50:00 Test Item Value Reference Range Interpretation Comments Monocytes (test code = Monocytes) 6.4 2.0-12.0 [facility] HospitalHddpbgnKMJDGXXYYK7666-08-44 00:50:00 Test Item Value Reference Range Interpretation Comments Eosinophils (test code = 0.9 See_Comment [A utomated message] The Eosinophils) system which ge nerated this result tra nsmitted reference range : <=4.0. The reference r kyle was not used to int erpret this result as normal/abnormal . [facility] HospitalBvtxiomSZZPLUSVJU8838-89-61 00:50:00 Test Item Value Reference Range Interpretation Comments Basophils (test code = 0.5 See_Comment [Aut omated message] The Basophils) system which ge nerated this result tra nsmitted reference range : <=1.0. The reference r kyle was not used to int erpret this result as normal/abnormal . [facility] HospitalXhjualrYYVFCITRZQ3167-29-10 00:50:00 Test Item Value Reference Range Interpretation Comments Neutrophils # (test code = Neutrophils 12.2 1.5-8.1 #) [facility] HospitalNzyadnpHSISESSCKS4464-36-31 00:50:00 Test Item Value Reference Range Interpretation Comments Lymphocytes # (test code = Lymphocytes 3.4 1.0-5.5 #) [facility] HospitalFvjvxrdLTUOHSFOYQ7775-53-90 00:50:00 Test Item Value Reference Range Interpretation Comments Monocytes # (test code 1.1 See_Comment [Aut omated message] The = Monocytes #) system which generated this result tra nsmitted reference range : <=0.8. The reference r kyle was not used to int erpret this result as normal/abnormal . [facility] HospitalHzzvjsvBUQPJBJJPG3048-29-62 00:50:00 Test Item Value Reference Range Interpretation Comments Eosinophils # (test code 0.2 See_Comment [A utomated message] The = Eosinophils #) system whic h generated this result tra nsmitted reference range : <=0.5. The reference r kyle was not used to int erpret this result as normal/abnormal . [facility] HospitalKtaisukOVXESIECUD7252-85-12 00:50:00 Test Item Value Reference Range Interpretation Comments Basophils # (test code 0.1 See_Comment [Aut omated message] The = Basophils #) system which generated this result tra nsmitted reference range : <=0.2. The reference r kyle was not used to int erpret this result as normal/abnormal . [facility] HospitalPtyyeniQMSVQJOFOK0514-27-77 00:50:00 Test Item Value Reference Range Interpretation Comments WBC (test code = WBC) 16.9 3.7-10.4 [facility] HospitalYnqzaneTIYHRSOPZA3615-80-88 00:50:00 Test Item Value Reference Range Interpretation Comments RBC (test code = RBC) 4.52 4.20-5.40 [facility]NynlkyuFQXEDPLBQJ5904-96-96 00:50:00 Test Item Value Reference Range Interpretation Comments Hgb (test code = Hgb) 13.0 12.0-16.0 [facility] HospitalEjypzxzKSQBAAPYKN7289-71-48 00:50:00 Test Item Value Reference Range Interpretation Comments Hct (test code = Hct) 39.0 36.0-48.0 [facility] HospitalRoijvfeSOBNUHMKVT3004-65-17 00:50:00 Test Item Value Reference Range Interpretation Comments MCV (test code = MCV) 86.1 80.0-98.0 [facility] HospitalFrtbynpTBITBSETZX9405-68-99 00:50:00 Test Item Value Reference Range Interpretation Comments MCH (test code = MCH) 28.7 pg 27.0-31.0 [facility] HospitalMqhzgbkUANDWIBHIW2405-23-70 00:50:00 Test Item Value Reference Range Interpretation Comments MCHC (test code = MCHC) 33.3 32.0-36.0 [facility] HospitalSfzznkkHTSBFYEFPC8324-47-10 00:50:00 Test Item Value Reference Range Interpretation Comments RDW (test code = RDW) 12.8 11.5-14.5 [facility] HospitalSxendgjRRDHBJRVIJ1962-16-86 00:50:00 Test Item Value Reference Range Interpretation Comments Platelet (test code = Platelet) 488 133-450 [facility] HospitalHmwfycrUOUGEBBYPO8186-58-25 00:50:00 Test Item Value Reference Range Interpretation Comments MPV (test code = MPV) 8.3 7.4-10.4 [facility] HospitalKvfrpmeFECPJBOIDY0661-50-78 00:50:00 Test Item Value Reference Range Interpretation Comments PT (test code = PT) 13.5 s 12.0-14.7 [facility] HospitalHvioggwAODVXDRKPF6283-91-27 00:50:00 Test Item Value Reference Range Interpretation Comments INR (test code = INR) 1.04 1 0.85-1.17 [facility] HospitalGucudkqLEAYRVCHWW8843-92-15 00:50:00 Test Item Value Reference Range Interpretation Comments PTT (test code = PTT) 31.2 s 22.9-35.8 [facility] HospitalFlqaynwEWROANXYZY2912-47-44 00:50:00 Test Item Value Reference Range Interpretation Comments Segs (test code = Segs) 72.4 45.0-75.0 [place] [id number] 00:50:00 Test Item Value Reference Range Interpretation Comments Lymphocytes (test code = Lymphocytes) 19.8 20.0-40.0 [facility] HospitalWyknagjVQUTQAWGFO4912-49-96 00:50:00 Test Item Value Reference Range Interpretation Comments Monocytes (test code = Monocytes) 6.4 2.0-12.0 [facility] HospitalLskqtbdQLAQSPQDMM4223-18-75 00:50:00 Test Item Value Reference Range Interpretation Comments Eosinophils (test code = 0.9 See_Comment [A utomated message] The Eosinophils) system which ge nerated this result tra nsmitted reference range : <=4.0. The reference r kyle was not used to int erpret this result as normal/abnormal . [facility] HospitalYpaaioxMMZTZFZFTD5157-88-78 00:50:00 Test Item Value Reference Range Interpretation Comments Basophils (test code = 0.5 See_Comment [Aut omated message] The Basophils) system which ge nerated this result tra nsmitted reference range : <=1.0. The reference r kyle was not used to int erpret this result as normal/abnormal . [facility] HospitalNbcmemaHTMWULRDGP3251-07-91 00:50:00 Test Item Value Reference Range Interpretation Comments Neutrophils # (test code = Neutrophils 12.2 1.5-8.1 #) [facility] HospitalBrznqiuORATQYTMXA5673-92-10 00:50:00 Test Item Value Reference Range Interpretation Comments Lymphocytes # (test code = Lymphocytes 3.4 1.0-5.5 #) [facility] HospitalNavpnzlCUFSTFSQXV2569-38-62 00:50:00 Test Item Value Reference Range Interpretation Comments Monocytes # (test code 1.1 See_Comment [Aut omated message] The = Monocytes #) system which generated this result tra nsmitted reference range : <=0.8. The reference r kyle was not used to int erpret this result as normal/abnormal . [facility] HospitalNzweldlWUKHTAOBNR1021-03-34 00:50:00 Test Item Value Reference Range Interpretation Comments Eosinophils # (test code 0.2 See_Comment [A utomated message] The = Eosinophils #) system whic h generated this result tra nsmitted reference range : <=0.5. The reference r kyle was not used to int erpret this result as normal/abnormal . [facility] HospitalUvgussbEULIHBEPDQ4683-31-23 00:50:00 Test Item Value Reference Range Interpretation Comments Basophils # (test code 0.1 See_Comment [Aut omated message] The = Basophils #) system which generated this result tra nsmitted reference range : <=0.2. The reference r kyle was not used to int erpret this result as normal/abnormal . Rich Oshea
[2022-07-25] MEDS ORDERED: NA CHLORIDE 0.9% 1,000 ML ONE (12:25)
[2022-07-25] MEDS ORDERED: MORPHINE 4 MG/ML SYR ONE (12:25)
[2022-07-25] MEDS ORDERED: ONDANSETRON 4 MG/2 ML VIAL ONE (12:25)
[2022-07-25 12:57] LABS: Absolute Lymphocytes (CBC) 2.8 K/uL (0.7-4.9); Hematocrit 41.1 % (36.0-45.0); Lymphocytes % 12.8 % (15.3-44.8); MCV 83.6 fL (80-100); MPV 9.2 fL (7.6-11.3); RBC Red Blood Cell Count 4.91 M/uL (3.86-4.86)
[2022-07-25 13:11] LABS: Albumin 2.8 g/dL (3.4-5.0); Bilirubin Total 0.5 mg/dL (0.2-1.0); Potassium 3.7 mmol/L (3.5-5.1); Protein, Total 7.4 g/dL (6.4-8.2)
--- NOTE | 2022-07-25 15:00 | RAD REPORT ---
EXAM DESCRIPTION: US - Abdomen Exam Limited - 07/25/2022 2:51 pm CLINICAL HISTORY: ABD PAIN COMPARISON: Stone Protocol dated 12/14/2018 FINDINGS: The gallbladder demonstrates sludge with no shadowing stones No pericholecystic fluid or g allbladder wall thickening. The common bile duct is normal measuring 4 mm. The liver demonstrates no findings of intrahepatic biliary dilatation. IMPRESSION: Gallbladder sludge. No sonographic evidence of cholecystitis or biliary ductal dilatatio n.
[2022-07-25 15:48] LABS: Blood Morphology Comment NOT SEEN (NOT SEEN); Platelet Estimate INCR
--- NOTE | 2022-07-25 16:01 | ER ---
Nurse's Notes [facility] Name: Sunita Donohue Age: 56 yrs Sex: Female : 1965 Arrival Date: 07/25/2022 Time: 11:46 Bed 23 Private MD: Michael Spence Diagnosis: Nausea with vomiting, unspecified;Diarrhea, unspecified;Elevated white blood cell count Presentation: 07/25 11:58 Chief complaint: Patient states: N/V/D X 1 month - hasn't eaten since Sunday. Spinal ld1 cement done by Dr. Ramirez 1 month ago. Coronavirus screen: At this time, the client does not indicate any symptoms associated with coronavirus-19. Ebola Screen: No symptoms or risks identified at this time. Initial Sepsis Screen: Does the patient meet any 2 criteria? No. Patient's initial sepsis screen is negative. Does the patient have a suspected source of infection? No. Patient's initial sepsis screen is negative. Risk Assessment: Do you want to hurt yourself or someone else? Patient reports no desire to harm self or others. Onset of symptoms was July 25, 2022. 11:58 Method Of Arrival: Wheelchair ld1 11:58 Acuity: RIKI 3 ld1 Triage Assessment: 12:00 General: Appears in no apparent distress. comfortable, Behavior is calm, cooperative, ld1 appropriate for age. Pain: Complains of pain in back Pain does not radiate. Pain currently is 7 out of 10 on a pain scale. EENT: No signs and/or symptoms were reported regarding the EENT system. Neuro: Level of Consciousness is awake, alert, obeys commands, Oriented to person, place, time, situation, Appropriate for age. Cardiovascular: Capillary refill < 3 seconds Patient's skin is warm and dry. Respiratory: Airway is patent Respiratory effort is even, unlabored. GI: Abdomen is flat, non-distended, Reports diarrhea, nausea. : No signs and/or symptoms were reported regarding the genitourinary system. Derm: No signs and/or symptoms reported regarding the dermatologic system. Musculoskeletal: No signs and/or symptoms reported regarding the musculoskeletal system. 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 - Social history:: Smoking status: Patient denies any tobacco usage or history of. Patient/guardian denies using alcohol. Screenin:17 Abuse screen: Denies threats or abuse. Denies injuries from another. Nutritional eh3 screening: No deficits noted. Tuberculosis screening: No symptoms or risk factors identified. Fall Risk IV access (20 points). Ambulatory Aid- None/Bed Rest/Nurse Assist (0 pts). Gait- Weak (10 pts.). Total Rose Fall Scale indicates Low Risk Score (25-44 pts). Fall prevention measures have been instituted. Side Rails Up X 2 Placed close to Nursing Station Frequent Obs/Assesments occuring Family Present and informed to notify staff if they need to leave bedside As available Patient and Family Educated on Fall Prevention Program and strategies. Assessment: 12:17 General: Appears in no apparent distress. uncomfortable, Behavior is calm, cooperative, eh3 appropriate for age. Pain: Complains of pain in thoracic area, lumbar area, left mid back and right mid back Pain currently is 7 out of 10 on a pain scale. Neuro: Level of Consciousness is awake, alert, obeys commands, Oriented to person, place, time, situation. Cardiovascular: Capillary refill < 3 seconds Patient's skin is warm and dry. Respiratory: Airway is patent Respiratory effort is even, unlabored, Respiratory pattern is regular, symmetrical. GI: Abdomen is round non-distended, Last meal was July 21, 2022. Bowel sounds present X 4 quads. GI: Reports diarrhea, nausea. : No signs and/or symptoms were reported regarding the genitourinary system. EENT: No signs and/or symptoms were reported regarding the EENT system. Derm: No signs and/or symptoms reported regarding the dermatologic system. Musculoskeletal: No signs and/or symptoms reported regarding the musculoskeletal system. Circulation, motion, and sensation intact. Range of motion: intact in all extremities. 13:30 Reassessment: Patient appears in no apparent distress at this time. Patient and/or eh3 family updated on plan of care and expected duration. Pain level reassessed. Patient is alert, oriented x 3, equal unlabored respirations, skin warm/dry/pink. 14:30 Reassessment: Pt out of room for ultrasound at this time. eh3 15:15 Reassessment: Patient appears in no apparent distress at this time. Patient and/or eh3 family updated on plan of care and expected duration. Pain level reassessed. Patient is alert, oriented x 3, equal unlabored respirations, skin warm/dry/pink. 16:15 Reassessment: Patient appears in no apparent distress at this time. Patient and/or eh3 family updated on plan of care and expected duration. Pain level reassessed. Patient is alert, oriented x 3, equal unlabored respirations, skin warm/dry/pink. Vital Signs: 11:58 BP 112 / 77; Pulse 113; Resp 18; Temp 97.8(TE); Pulse Ox 97% on R/A; Weight 65.77 kg; ld1 Height 5 ft. 4 in. (162.56 cm); Pain 7/10; 12:45 BP 114 / 84; Pulse 92; Resp 18; Pulse Ox 98% on R/A; eh3 13:30 BP 121 / 68; Pulse 88; Resp 16; Pulse Ox 98% on R/A; eh3 15:15 BP 126 / 85; Pulse 91; Resp 18; Pulse Ox 100% on R/A; eh3 16:15 BP 122 / 78; Pulse 95; Resp 18; Pulse Ox 99% on R/A; eh3 11:58 Body Mass Index 24.89 (65.77 kg, 162.56 cm) ld1 ED Course: 11:46 Patient arrived in ED. mr 11:47 Michael Spence MD is Private Physician. mr 11:47 Betty Atkinson FNP-C is PHCP. kb 11:47 Edgardo Masters MD is Attending Physician. kb 11:48 Betty Atkinson FNP-C is PHCP. kb 11:48 Edgardo Masters MD is Attending Physician. kb 12:00 Triage completed. ld1 12:00 Arm band placed on right wrist. ld1 12:16 Aziza Isaac, RN is Primary Nurse. eh3 12:17 Patient has correct armband on for positive identification. Bed in low position. Call eh3 light in reach. Side rails up X2. Adult w/ patient. Pulse ox on. NIBP on. Door closed. Noise minimized. Lights dimmed. Warm blanket given. Pillow given. 12:17 Inserted saline lock: 20 gauge in right antecubital area, using aseptic technique. eh3 Blood collected. 14:52 US Abdomen Limited In Process Unspecified. EDMS 15:44 Diet: Patient given water. Tolerated well. eh3 16:51 No provider procedures requiring assistance completed. IV discontinued, intact, eh3 bleeding controlled, No redness/swelling at site. Pressure dressing applied. Administered Medications: 12:20 Drug: NS 0.9% 1000 ml Route: IV; Rate: 1 bolus; Site: right antecubital; eh3 13:43 Follow up: IV Status: Completed infusion; IV Intake: 1000ml eh3 12:22 Drug: Zofran (Ondansetron) 4 mg Route: IVP; Site: right antecubital; eh3 13:44 Follow up: Response: Nausea unchanged eh3 12:24 Drug: morphine 4 mg Route: IVP; Infused Over: 4 mins; Site: right antecubital; eh3 13:44 Follow up: Response: Pain is decreased eh3 17:10 Drug: Zofran (Ondansetron) 4 mg Route: IVP; Site: right antecubital; eh3 17:16 Follow up: Response: No adverse reaction eh3 Medication: 16:51 VIS not applicable for this client. eh3 Intake: 13:43 IV: 1000ml; Total: 1000ml. eh3 Outcome: 16:01 Discharge ordered by MD. lemus 17:17 Discharged to home via wheelchair, with family. eh3 17:17 Condition: stable 17:17 Discharge instructions given to patient, family, Instructed on discharge instructions, follow up and referral plans. medication usage, Demonstrated understanding of instructions, follow-up care, medications, Prescriptions given X 1. 17:17 Patient left the ED. eh3 Signatures: Dispatcher [employer] EDMS Betty Atkinson, [place] JASSO-Celine LindseyaGely mr Bobbi Ingram RN RN ld1 Aziza Isaac RN RN eh3 Corrections: (The following items were deleted from the chart) 13:45 13:15 Reassessment: Patient appears in no apparent distress at this time. Patient eh3 and/or family updated on plan of care and expected duration. Pain level reassessed. Patient is alert, oriented x 3, equal unlabored respirations, skin warm/dry/pink. eh3 15:22 14:30 Reassessment: Patient appears in no apparent distress at this time. Patient eh3 and/or family updated on plan of care and expected duration. Pain level reassessed. Patient is alert, oriented x 3, equal unlabored respirations, skin warm/dry/pink. eh3
--- NOTE | 2022-07-25 16:01 | EDPHYS ---
Physician Documentation [facility] Name: Sunita Donohue Age: 56 yrs Sex: Female : 1965 Arrival Date: 07/25/2022 Time: 11:46 Bed 23 Private MD: Michael Spence ED Physician Edgardo Masters HPI: 07/25 16:11 This 56 yrs old Female presents to ER via Wheelchair with complaints of kb Vomiting/Diarrhea. 16:11 The patient presents to the emergency department with nausea, vomiting, diarrhea. kb Onset: The symptoms/episode began/occurred 1 month(s) ago. Possible causes: unknown. The symptoms are aggravated by nothing. The symptoms are alleviated by nothing. Associated signs and symptoms: Pertinent positives: diarrhea, nausea, vomiting, Pertinent negatives: fever. Severity of symptoms: At their worst the symptoms were moderate in the emergency department the symptoms are unchanged. The patient has not experienced similar symptoms in the past. The patient has not recently seen a physician. Pt reports n/v/d since having back surgery 1 month ago. States her home health nurse recommended she come to the ER for rehab placement so that is what prompted her visit today. Reports she is infusing an antibiotic through PICC 3 times per day and it makes her nauseated.. [employer]: 12:00 LMP N/A - Post-menopause ld1 Historical: - Allergies: 12:00 No Known Allergies; ld1 - Home Meds: 12:00 lisinopril 20 mg Oral tab 1 tab once daily [Active]; ld1 - PMHx: 12:00 CHF; Diabetes - IDDM; Diabetes - NIDDM; Gastroparesis; Hypertension; ld1 - PSHx: 12:00 Ligation of fallopian tube; ld1 - Immunization history:: Adult Immunizations up to date, Client reports receiving the 2nd dose of the Covid vaccine. - Social history:: Smoking status: Patient denies any tobacco usage or history of. Patient/guardian denies using alcohol. ROS: 16:10 Constitutional: Negative for fever, chills, and weight loss. kb 16:10 Abdomen/GI: Positive for nausea, vomiting, and diarrhea, Negative for abdominal pain. 16:10 All other systems are negative. Exam: 16:10 Constitutional: This is a well developed, well nourished patient who is awake, alert, kb and in no acute distress. Head/Face: Normocephalic, atraumatic. ENT: Moist Mucous membranes Cardiovascular: Regular rate and rhythm with a normal S1 and S2. No gallops, murmurs, or rubs. No pulse deficits. Respiratory: Respirations even and unlabored. No increased work of breathing. Talking in full sentences Skin: Warm, dry with normal turgor. Normal color. MS/ Extremity: Pulses equal, no cyanosis. Neurovascular intact. Full, normal range of motion. Neuro: Awake and alert, GCS 15, oriented to person, place, time, and situation. Moves all extremities. Normal gait. 16:10 Abdomen/GI: Inspection: abdomen appears normal, Bowel sounds: normal, Palpation: soft, in all quadrants, mild abdominal tenderness, in the right upper quadrant. Vital Signs: 11:58 BP 112 / 77; Pulse 113; Resp 18; Temp 97.8(TE); Pulse Ox 97% on R/A; Weight 65.77 kg; ld1 Height 5 ft. 4 in. (162.56 cm); Pain 7/10; 12:45 BP 114 / 84; Pulse 92; Resp 18; Pulse Ox 98% on R/A; eh3 13:30 BP 121 / 68; Pulse 88; Resp 16; Pulse Ox 98% on R/A; eh3 15:15 BP 126 / 85; Pulse 91; Resp 18; Pulse Ox 100% on R/A; eh3 16:15 BP 122 / 78; Pulse 95; Resp 18; Pulse Ox 99% on R/A; eh3 11:58 Body Mass Index 24.89 (65.77 kg, 162.56 cm) ld1 MDM: 11:59 Patient medically screened. kb 16:08 Data reviewed: vital signs, nurses notes. Data interpreted: Pulse oximetry: on room air kb is 100 %. Interpretation: normal. Counseling: I had a detailed discussion with the patient and/or guardian regarding: the historical points, exam findings, and any diagnostic results supporting the discharge/admit diagnosis, lab results, radiology results, the need for outpatient follow up, a family practitioner, to return to the emergency department if symptoms worsen or persist or if there are any questions or concerns that arise at home. ED course: Spoke with Dr Spence regarding pt. Recommends pt follow up with him in office to determine appropriate placement. Pt tolerating po intake. Pt educated to plan of care. Verbal understanding received. . 07/25 12:00 Order name: CBC with Diff; Complete Time: 15:55 kb 07/25 12:00 Order name: CMP; Complete Time: 13:15 kb 07/25 12:00 Order name: Lipase; Complete Time: 13:15 kb 07/25 13:03 Order name: Manual Differential; Complete Time: 15:55 EDMS 07/25 13:22 Order name: US Abdomen Limited; Complete Time: 15:06 kb 07/25 12:00 Order name: IV Saline Lock; Complete Time: 12:47 kb 07/25 12:00 Order name: Labs collected and sent; Complete Time: 12:47 kb 07/25 15:06 Order name: PO challenge; Complete Time: 15:44 kb Administered Medications: 12:20 Drug: NS 0.9% 1000 ml Route: IV; Rate: 1 bolus; Site: right antecubital; eh3 13:43 Follow up: IV Status: Completed infusion; IV Intake: 1000ml eh3 12:22 Drug: Zofran (Ondansetron) 4 mg Route: IVP; Site: right antecubital; eh3 13:44 Follow up: Response: Nausea unchanged eh3 12:24 Drug: morphine 4 mg Route: IVP; Infused Over: 4 mins; Site: right antecubital; eh3 13:44 Follow up: Response: Pain is decreased eh3 17:10 Drug: Zofran (Ondansetron) 4 mg Route: IVP; Site: right antecubital; eh3 17:16 Follow up: Response: No adverse reaction eh3 Disposition: 16:17 Co-signature as Attending Physician, Edgardo Masters MD I agree with the assessment and rt plan of care. Disposition Summary: 07/25/22 16:01 Discharge Ordered Location: Home kb Condition: Stable kb Diagnosis - Nausea with vomiting, unspecified kb - Diarrhea, unspecified kb - Elevated white blood cell count kb Followup: kb - With: Emergency Department - When: As needed - Reason: Worsening of condition Followup: kb - With: Private Physician - When: 2 - 3 days - Reason: Recheck today's complaints, Continuance of care, Re-evaluation by your physician Discharge Instructions: - Discharge Summary Sheet kb - Nausea and Vomiting, Adult, [id number] kb - Diarrhea, Adult, [id number] kb Forms: - Medication Reconciliation Form kb - Thank You Letter kb - Antibiotic Education kb - Prescription Opioid Use kb Prescriptions: - Zofran 4 mg Oral Tablet - take 1 tablet by ORAL route every 8 hours As needed; 20 tablet; Refills: 0, kb Product Selection Permitted Signatures: Dispatcher [employer] EDMS Betty Atkinson, [place] JASSO-Bobbi Mercado RN RN ld1 Aziza Isaac RN RN eh3 Edgardo Masters MD MD rt Corrections: (The following items were deleted from the chart) 17:05 16:08 ED course: Spoke with Dr Spence regarding pt. Recommends pt follow up with him in kb office to determine appropriate placement. Pt tolerating po intake. Pt educated to plan of care. Verbal understanding received. . kb 17:06 16:11 Pt reports n/v/d since having back surgery 1 month ago. States her home health kb nurse recommended she come to the ER for rehab placement so that is what prompted her visit today. kb
[2022-07-25 17:23] VITALS: TEMP 97.8
[2022-07-25 17:28] VITALS: BP 122/78; O2SAT 99
== END 2022-07-25 17:17 | disposition home or self-care (01) ==
LOC: ER 11:41
DX: R11.2 Nausea with vomiting, unspecified (principal); D72.829 Elevated white blood cell count, unspecified; R19.7 Diarrhea, unspecified; E11.9 Type 2 diabetes mellitus without complications; I10 Essential (primary) hypertension
CPT/HCPCS: 96361; 85025; 36415; 83690; 80053; 76705; 96375; 96374; 99284; J7030; J2405

== ENCOUNTER 2022-08-19 12:13 | Inpatient (IN) | payer OTHER ==
[2022-08-19] MEDS ORDERED: FAMOTIDINE 20 MG/2 ML VIAL IV ONE (12:24)
[2022-08-19] MEDS ORDERED: NA CHLORIDE 0.9% 1,000 ML ONE (12:25)
--- OUTSIDE RECORDS SUMMARY | 2022-08-19 12:28 | XMS REPORT | Continuity of Care Document ---
:1965 Author Organization [facility] t Address [address] [place] [address] Care Team Providers Name Role Phone MUSA HOLDEN Primary Care Physician Unavailable LINWOOD MORTON Attending Clinician Unavailable Neftali Levi Attending Clinician NEFTALI LEVI Attending Clinician Unavailable Aliza Toney Attending Clinician ALIZA TONEY Attending Clinician Unavailable Britney Guzmán Attending Clinician BRITNEY GUZMÁN Attending Clinician Unavailable JUANA RODRIGUEZ Attending Clinician Unavailable Juana Rodriguez DO Attending Clinician MUSA HOLDEN Attending Clinician Unavailable Musa Florian Attending Clinician [phone] Doctor Unassigned, [place] Attending Clinician Unavailable Leandro Madrigal DO Attending Clinician Visit, [facility] Nurse Attending Clinician Unavailable MARYBEL CHAVIRA Attending Clinician Unavailable Pcp, Patient Does Not Have A Attending Clinician [phone] Tracey Garcia Admitting Clinician TRACEY GARCIA Admitting Clinician Unavailable Max Guadalupe Admitting Clinician MAX GUADALUPE Admitting Clinician Unavailable JUANA RODRIGUEZ Admitting Clinician Unavailable MARYBEL CHAVIRA Admitting Clinician Unavailable Payers Payer Name Policy Type Policy Number Effective Date Expiration Date S ourxochitl [employer] MEDICARE [id number] 2021 ADVANTAGE PPO 00:00:00 [employer] GOLD PLS [id number] 2021 HMO 00:00:00 MEDICAID OF [place] [id number] 2022 00:00:00 WELLCARE JIGAR [id number] 2020 PLUS CLASSIC/VALUE 00:00:00 Problems Condition Condition Condition Status Onset Resolution Last Treating Co mments Source Name Details Category Date Date Treatment Clinician Date POSSIBLE POSSIBLE Diagnosis Active 2021-092022-07-05 Memoria PERFORATED PERFORATED 0-21 21:52:00 l ESOPHAGUS ESOPHAGUS 00:00: Herm alberto Active 00 06/23/2022 [facility] UPPER UPPER Diagnosis Active 2021-092022-06-30 Mem oria GASTROINTE GASTROINTE 0-19 21:46:00 l STINAL STINAL 00:00: [place] BLEED;ESOP BLEED;ESOP 00 HAGEAL HAGEAL Active 06/21/2022 [facility] GI BLEED GI BLEED Diagnosis Active 2021-092022-06-21 Memoria UPPER UPPER 0-19 04:10:00 l Active 00:00: [place] 06/21/2022 [facility] VOMITING VOMITING Diagnosis Active 2021-092022-07-04 Memoria BLOOD BLOOD 0-18 21:48:00 l Active 00:00: [place] 06/20/[address] [place] [address] Nausea and Nausea and Disease Active 2019-0 U nivers vomiting vomiting 4-19 ity of 00:00: [address] Acute Acute Disease Active 2019-0 Univers gastroente gastroente 4-18 it y of ritis ritis 00:00: [address] ANTHONY (acute ANTHONY (acute Disease Active U nivers kidney kidney 3-19 ity of injury) injury) 00:00: 00 Medical Branch DKA DKA Disease Active Univers (diabetic (diabetic 2-18 ity of ketoacidos ketoacidos [place] is[place] 00 [facility] Type 2 Type 2 Disease Active Overview: Univer s diabetes diabetes 06-01 Formattin ity of mellitus mellitus 00:00: g of this [place] as without without 00 note Medical complicati complicati might be Branch ons ons different from the original. ICD10 Diagnosis Term Recharger Utility Obesity Obesity Disease Active Overview: Univ ers 06-01 Formattin ity of 00:00: g of this note Medical might be Branch different from the original. ICD10 Diagnosis Term Recharger Utility Yeast Yeast Disease Active Univers infection infection 06-01 ity of of the of the 00:00: [place] vagina vagina 00 Medical Branch Screening Screening Disease Active Overview: Univers for STD for STD 06-01 Formattin ity o f (sexually (sexually 00:00: g of this [place] transmitte transmitte 00 note Me dical d disease) d disease) might be Branch different from the original. ICD10 Diagnosis Term Recharger Utility Essential Essential Disease Active Overview: Univers hypertensi hypertensi 06-01 Formattin ity of on on 00:00: g of this 00 note Medical might be Branch different from the original. ICD10 Diagnosis Term Recharger Utility Need for Need for Disease Active Unive rs Tdap Tdap 06-01 ity of vaccin[place] 00 [facility] [place] Acute Acute Problem Active 2022-07-04 Memor ia posthemorr posthemorr 22:14:18 l hagic hagic [place] anemia anemia (disorder) (disorder) Active Problem 07/04/2022 [facility], Gabe Gómez [facility] Acute Acute Problem Active 2022-07-04 Memor ia urinary urinary 22:14:18 l tract tract [place] infection infection (disorder) (disorder) Active Problem 07/04/2022 [facility], Gabe Gómez [facility] Diabetes Diabetes Problem Active 2022-07-04 Memoria mellitus mellitus 22:14:18 l (disorder) (disorder) He rmann Active Problem 07/04/2022 [facility], RicoM [facility] Hypokalemi Hypokalem Problem Active 2022-07-04 Memoria a ia 22:14:18 l (disorder) (disorder) He rmann Active Problem 07/04/2022 [facility], Rico,M [facility] Hypophosph Hypophosp Problem Active 2022-07-04 Memoria atemia hatemia 22:14:18 l (disorder) (disorder) He rmann Active Problem 07/04/2022 [facility], Rico,M [facility] Moderate Moderate Problem Active 2022-07-04 Memoria protein-ca protein-ca 22:14:18 l christieyessenia Oshea malnutriti malnutriti on (weight on (weight for age for age 60-74% of 60-74% of standard) standard) (disorder) (disorder) Active Problem 07/04/2022 [facility] ILLNESS, ILLNESS, Diagnosis Active 2022-06-21 Memoria UNSPECIFIE UNSPECIFIE 04:10:00 l D D Active Day[place] [facility] GASTROINTE Diagnosis Active 2022-06-30 Memoria STINAL GASTROINTE 21:46:00 l HEMORRHAGE STINAL Brock n , HEMORRHAGE UNSPECIFIE , D UNSPECIFIE D Active [facility] OTHER OTHER Diagnosis Active 2022-06-30 Mem oria SPECIFIED SPECIFIED 21:46:00 l DISEASE OF DISEASE OF He [facility] ESOPHAGUS ESOPHAGUS Active [facility] Illness Illness Diagnosis 2022-06-25 Memoria (finding) (finding) 22:47:29 l Diagnosis [place] 06/25/2022 [facility] Allergies, Adverse Reactions, Alerts Allergy Allergy Status Severity Reaction(s) Onset Inactive Treating Comm ents Source Name Type Date Date Clinician NO KNOWN Drug Active Univers ALLERGIE Davey ity of S [facility] Branch Social History Social Habit Start Date Stop Date Quantity Comments Source Social History 2022-06-21 2022-06-21 [facility] javid 08:35:01 08:35:01 Exposure to 2022-04-07 2022-04-17 Not sure [facility]-CoV-2 00:00:00 16:10:00 [facility] (event) Branch Alcohol intake 2022-04-17 2022-04-17 0 /d University of 00:00:00 00:00:00 [facility] Tobacco use and 2015-06-01 2015-06-01 Smokeless tobacco Un iversity of exposure 00:00:00 00:00:00 non-user [facility] History of 2004-09-03 Cigarette Smoker [facility] of tobacco use 00:00:00 [facility] Sex Ass[birth year] At [birth year] Universit y of 00:00:00 00:00:00 [facility] Smoking Status Start Date Stop Date Source Tobacco smoking status 2022-06-21 08:34:33 Memor miguel ángel Marshallann Ex-smoker 2015-06-01 00:00:00 2015-06-01 00:00:00 [facility] Medications Ordered Filled Start Stop Current Ordering Indication Dosage Frequency Signature Comments Components Source Medication Medication Date Date Medication? Clinician (SIG) Name Name [facility] 2021-09 Yes 1,000 mg = Memoria en 500 mg 0-30 2 tab, PO, l oral 18:54: Q6H, PRN [place] tablet. 00 Fever, X 10 day, # 80 tab, 0 Refill(s), Pharmacy: [facility], 162.56, cm, 06/23/22 15:26:00 CDT, Height, 69.001, kg, 06/23/22 15:26:00 CDT, Weight acetaminoph 2021-09 Yes 1,000 mg = Memoria en 500 mg 0-30 2 tab, PO, l oral 18:54: Q6H, PRN [place] tablet. 00 Fever, X 10 day, # 80 tab, 0 Refill(s), Pharmacy: [facility], 162.56, cm, 06/23/22 15:26:00 CDT, Height, 69.001, kg, 06/23/22 15:26:00 CDT, Weight methocarbam 2021-09 Yes 500 mg = 1 Memoria ol 500 mg 0-30 tab, PO, l oral tablet 18:49: TID, X 14 H ermann 00 day, # 42 tab, 0 Refill(s), Pharmacy: [facility], 162.56, cm, 06/23/22 15:26:00 CDT, Height, 69.001, kg, 06/23/22 15:26:00 CDT, Weight methocarbam 2021-09 Yes 500 mg = 1 Memoria ol 500 mg 0-30 tab, PO, l oral tablet 18:49: TID, X 14 H ermann day, # 42 tab, 0 Refill(s), Pharmacy: [facility], 162.56, cm, 06/23/22 15:26:00 CDT, Height, 69.001, kg, 06/23/22 15:26:00 CDT, Weight ceFAZolin 2 2021-09 Yes IV, Memori a g/20 mL 0-29 Q8H-06, 0 l intravenous 21:18: Refill(s) H ermann solution 00 folic acid 2021-09 Yes 1 mg = 1 Mem oria 1 mg oral 0-29 tab, PO, l tablet 21:18: Daily, # [place] 00 90 tab, 0 Refill(s), Pharmacy: [facility], 162.56, cm, 06/23/22 15:26:00 CDT, Height, 69.001, kg, 06/23/22 15:26:00 CDT, Weight pantoprazol 2021-09 Yes 40 mg = 1 M emoria e 40 mg 0-29 tab, PO, l oral 21:18: Daily, # [place] enteric 00 90 tab, 0 coated Refill(s), tablet Pharmacy: [facility], 162.56, cm, 06/23/22 15:26:00 CDT, Height, 69.001, kg, 06/23/22 15:26:00 CDT, Weight ceFAZolin 2 2021-09 Yes IV, Memori a g/20 mL 0-29 Q8H-06, 0 l intravenous 21:18: Refill(s) H ermann solution 00 folic acid 2021-09 Yes 1 mg = 1 Mem oria 1 mg oral 0-29 tab, PO, l tablet 21:18: Daily, # [place] 00 90 tab, 0 Refill(s), Pharmacy: [facility], 162.56, cm, 06/23/22 15:26:00 CDT, Height, 69.001, kg, 06/23/22 15:26:00 CDT, Weight pantoprazol 2021-09 Yes 40 mg = 1 M emoria e 40 mg 0-29 tab, PO, l oral 21:18: Daily, # [place] enteric 00 90 tab, 0 coated Refill(s), tablet Pharmacy: [facility], 162.56, cm, 06/23/22 15:26:00 CDT, Height, 69.001, kg, 06/23/22 15:26:00 CDT, Weight Adult 2021-09 Yes Notes: Memoria Parenteral 0-24 Must use l Nutrition 03:00: 1.2 micron He rmann Custom - 00 filter AND Peripheral Lipids (PPN not should not TPN) 2,000 be mL administer ed to patients who are allergic to soy, fish, egg or peanuts. Adult 2021-09 Yes Notes: Memoria Parenteral 0-24 [...] Duration: 30 day, Stop date: 07/25/22 14:51:00 DRUG WORKER, 0 glucagon 2021-09 Yes 1 mg, Memoria 0-23 Route: IM, l 20:52: Drug form: PDR/INJ, PRN, Dosing Weight 69.001, kg, PRN Blood Glucose Results, Start date: 06/25/22 15:52:00 CDT, Duration: 30 day, Stop date: 07/25/22 14:51:00 DRUG WORKER, 0 insulin 2021-09 Yes Notes: Memoria lispro 0-23 (Same as: l 20:52: Humalog) Roll in palms of hands gently; Do not shake vigorously . WASTE: F/P - Black; E - Municipal Trash Bin Stable for 28 days at room temperatur e. Expires in days from ____Date Dextrose 2021-09 Yes 12.5 gm, Memor ia 50% Syringe 0-23 25 mL, l (D50W) 20:52: Route: [place] 00 IVP, Drug Form: INJ, Dosing Weight 69.001, kg, PRN, PRN Blood Glucose Results, Start date: 06/25/22 15:52:00 CDT, Duration: 30 day, Stop date: 07/25/22 14:51:00 DRUG WORKER, 0 glucagon 2021-09 Yes 1 mg, Memoria 0-23 Route: IM, l 20:52: Drug form: [place] 00 PDR/INJ, PRN, Dosing Weight 69.001, kg, PRN Blood Glucose Results, Start date: 06/25/22 15:52:00 CDT, Duration: 30 day, Stop date: 07/25/22 14:51:00 DRUG WORKER, 0 insulin 2021-09 Yes Notes: Memoria lispro 0-23 (Same as: l 20:52: Humalog) [place] 00 Roll in palms of hands gently; Do not shake vigorously . WASTE: F/P - Black; E - Municipal Trash Bin Stable for 28 days at room temperatur e. Expires in days from ____Date potassium 2021-09 No Notes: Memori a chloride 0-23 (Same as: l 13:00: KCL) [place] 00 Infuse over 2 hours. potassium 2021-09 No Notes: Memori a chloride 0-23 (Same as: l 13:00: KCL) [place] 00 Infuse over 2 hours. Adult 2021-09 No 1 mL, Memoria Parenteral 0-23 Rate: l Nutrition 03:00: Titrate, Herm alberto Dosing Peripheral Weight (PPN not 69.001, TPN) 1 mL kg, Route: IV, Total Volume: 1 mL, Start Date: 06/24/22 22:00:00 CDT, Duration: 24 hr, Stop date: 06/25/22 21:59:00 CDT, Replace Every: 24 hr Adult 2021-09 No 1 mL, Memoria Parenteral 0-23 Rate: l Nutrition 03:00: Titrate, Herm alberto Custom - 00 Dosing Peripheral Weight (PPN not 69.001, TPN) [...] allergic to soy, fish, egg or peanuts. Adult 2021-09 No 1 mL, Memoria Parenteral 0-23 Rate: l Nutrition 03:00: Titrate, Herm alberto Standard - 00 Dosing Peripheral Weight (PPN not 69.001, TPN) 1 mL kg, Route: IV, Total Volume: 1 mL, Start Date: 06/24/22 22:00:00 CDT, Duration: 24 hr, Stop date: 06/25/22 21:59:00 CDT, Replace Every: 24 hr Adult 2021-09 No 1 mL, Memoria Parenteral 0-23 Rate: l Nutrition 03:00: Titrate, Herm alberto Custom - 00 Dosing Peripheral Weight (PPN not 69.001, TPN) [...] moria 0-22 infuse l 23:00: over 2.5 [place] 00 hours For adult patients only: Round to nearest 250 mg per Medical Staff approval MEDICATION WASTE Product Size: 1000 mg Product Wasted: ___ mg vancomycin 2021-09 Yes 2000 mg: Me moria 0-22 infuse l 23:00: over 2.5 [place] 00 hours For adult patients only: Round to nearest 250 mg per Medical Staff approval MEDICATION WASTE Product Size: 1000 mg Product Wasted: ___ mg D5LR 1,000 2021-09 No 1,000 mL, Me moria mL 0-22 Rate: 100 l 18:52: ml/hr, [place] 00 Infuse over: 10 hr, Route: IV, Dosing Weight 69.001 kg, Total Volume: 1,000, Start date: 06/24/22 13:52:00 CDT, Duration: 30 day, Stop date: 07/24/22 13:51:00 DRUG WORKER, BSA: 1.78 m2, 0 D5LR 1,000 2021-09 No 1,000 mL, Me moria mL 0-22 Rate: 100 l 18:52: ml/hr, [place] 00 Infuse over: 10 hr, Route: IV, Dosing Weight 69.001 kg, Total Volume: 1,000, Start date: 06/24/22 13:52:00 CDT, Duration: 30 day, Stop date: 07/24/22 13:51:00 DRUG WORKER, BSA: 1.78 m2, 0 D5W 1,000 2021-09 No 1,000 mL, Mem oria mL 0-22 Rate: 125 l 18:09: ml/hr, [place] 00 Infuse over: 8 hr, Route: IV, Dosing Weight 69.001 kg, Total Volume: 1,000, Start date: 06/24/22 13:09:00 CDT, Duration: 30 day, Stop date: 07/24/22 13:08:00 DRUG WORKER, BSA: 1.78 m2, 0 D5W 1,000 2021-09 No 1,000 mL, Mem oria mL 0-22 Rate: 125 l 18:09: ml/hr, [place] 00 Infuse over: 8 hr, Route: IV, Dosing Weight 69.001 kg, Total Volume: 1,000, Start date: 06/24/22 13:09:00 CDT, Duration: 30 day, Stop date: 07/24/22 13:08:00 DRUG WORKER, BSA: 1.78 m2, 0 potassium 2021-09 No Notes: Memori a chloride 0-22 (Same as: l 14:00: KCL) [place] 00 Infuse over 2 hours. folic acid 2021-09 Yes Notes: Memor ia + Sodium 0-22 (Same as: l Chloride 14:00: Folvite) Monica nn 0.9% IV 50 00 mL polyethylen 2021-09 Yes Notes: Yung ami e glycol 0-22 Dissolve l 3350 14:00: in 8 oz of [place] 00 water or juice. (Same as: Miralax) potassium 2021-09 No Notes: Memori a chloride 0-22 (Same as: l 14:00: KCL) [place] 00 Infuse over 2 hours. folic acid 2021-09 Yes Notes: Memor ia + Sodium 0-22 (Same as: l Chloride 14:00: Folvite) Monica nn 0.9% IV 50 00 mL polyethylen 2021-09 Yes Notes: Yung ami e glycol 0-22 Dissolve l 3350 14:00: in 8 oz of [place] 00 water or juice. (Same as: Miralax) Dilaudid 2021-09 Yes Notes: Memoria 0-22 Same as: l 13:46: Dilaudid [place] 00 Dilaudid 2021-09 Yes Notes: Memoria 0-22 Same as: l 13:46: Dilaudid [place] 00 Adult 2021-09 No 1 mL, Memoria Parenteral 0-22 Rate: l Nutrition 13:11: Titrate, Herm alberto Standard - 00 Dosing Peripheral Weight (PPN not 69.001, TPN) 1 mL kg, Route: IV, Total Volume: 1 mL, Start Date: 06/24/22 8:11:00 CDT, Duration: 24 hr, Stop date: 06/25/22 8:10:00 CDT Adult 2021-09 No 1 mL, Memoria Parenteral 0-22 Rate: l Nutrition 13:11: Titrate, Herm alberto Standard - 00 Dosing Peripheral Weight (PPN not 69.001, TPN) 1 mL kg, Route: IV, Total Volume: 1 mL, Start Date: 06/24/22 8:11:00 CDT, Duration: 24 hr, Stop date: 06/25/22 8:10:00 CDT vancomycin 2021-09 mg: Me moria 0-22 infuse l 11:00: over 2.5 [place] 00 hours vancomycin 2021-09 No 2000 mg: Me moria 0-22 infuse l 11:00: over 2.5 [place] 00 hours senna 2021-09 Yes Notes: Memoria 0-22 (Same as: l 02:00: Senokot) [place] 00 senna 2021-09 Yes Notes: Memoria 0-22 (Same as: l 02:00: Senokot) Reglan 2021-09 Yes Notes: Memoria 0-21 (Same as: l 23:00: Reglan) [place] 00 Reglan 2021-09 Yes Notes: Memoria 0-21 (Same as: l 23:00: Reglan) cefepime + 2021-09 Yes Notes: Memor ia sterile 0-21 (Same As: l water 10 mL 21:00: Maxipime) H MEDICATION WASTE Product Size: 1000 mg Product Wasted: ___ mg Flagyl 2021-09 Yes Notes: Memoria 0-21 (Same as: l 21:00: Flagyl) Avoid alcohol. vancomycin 2021-09 No 2000 mg: Me moria + Sodium 0-21 infuse l Chloride 21:00: over 2.5 [place] nn 0.9% IV 250 00 hours For mL adult patients only: Round to nearest 250 mg per Medical Staff approval MEDICATION WASTE Product Size: 1000 mg Product Wasted: ___ mg cefepime + 2021-09 Yes Notes: Memor ia sterile 0-21 (Same As: l water 10 mL 21:00: Maxipime) MEDICATION WASTE Product Size: 1000 mg Product Wasted: ___ mg Flagyl 2021-09 Yes Notes: Memoria 0-21 (Same as: l 21:00: Flagyl) Avoid alcohol. vancomycin 2021-09 No 2000 mg: Me moria + Sodium 0-21 infuse l Chloride 21:00: over 2.5 [place] nn 0.9% IV 250 00 hours For mL adult patients only: Round to nearest 250 mg per Medical Staff approval MEDICATION WASTE Product Size: 1000 mg Product Wasted: ___ mg Vancomycin 2021-09 Yes Notes: Memor ia Pharmacy 0-21 Vancomycin l Dosing 20:27: Pharmacy [place] Consult 14 Dosing Protocol PHARMAC Y USE ONLY Note: This is not a medication order. This is a consultati on order. Vancomycin 2021-09 Yes Notes: Memor ia Pharmacy 0-21 Vancomycin l Dosing 20:27: Pharmacy [place] Consult 14 Dosing Protocol PHARMAC Y USE ONLY Note: This is not a medication order. This is a consultati on order. Lactated 2021-09 No 1,000 mL, Yung ami Ringers IV 0-21 Rate: 100 l 1,000 mL 20:23: ml/hr, [place] 00 Infuse over: 10 hr, Route: IV, Dosing Weight 69.001 kg, Total Volume: 1,000, Start date: 06/23/22 15:23:00 CDT, Duration: 2 day, Stop date: 06/25/22 15:22:00 CDT, BSA: 1.78 m2, 0 Lactated 2021-09 No 1,000 mL, Yung ami Ringers IV 0-21 Rate: 100 l 1,000 mL 20:23: ml/hr, [place] 00 Infuse over: 10 hr, Route: IV, [...] 2 minutes. (Same as: Protonix) pantoprazol 2021-09 Yes Notes: For Memoria e additive 0-21 IV push l 80 mg + 20:21: reconstitu Herm alberto Sodium 00 te with 10 Chloride ml 0.9% 0.9% IV 100 sodium mL chloride and push over 2 minutes. (Same as: Protonix) Dextrose 2021-09 Yes 12.5 gm, Memor ia 50% Syringe 0-21 25 mL, l (D50W) 20:18: Route: [place] 00 IVP, Drug Form: INJ, Dosing Weight 69.001, kg, PRN, PRN Blood Glucose Results, Start date: 06/23/22 15:18:00 CDT, Duration: 30 day, Stop date: 07/23/22 14:17:00 DRUG WORKER, 0 glucagon 2021-09 Yes 1 mg, Memoria 0-21 Route: IM, l 20:18: Drug form: [place] 00 PDR/INJ, PRN, Dosing Weight 69.001, kg, PRN Blood Glucose Results, Start date: 06/23/22 15:18:00 CDT, Duration: 30 day, Stop date: 07/23/22 14:17:00 DRUG WORKER, 0 ondansetron 2021-09 Yes Notes: Yung ami 0-21 (Same as: l 20:18: Zofran) MEDICATION WASTE Product Size: 4 mg Product Wasted: ___ mg melatonin 2021-09 Yes Notes: Memori a 0-21 (Same as: l 20:18: Melatonin) Dextrose 2021-09 Yes 12.5 gm, Memor ia 50% Syringe 0-21 25 mL, l (D50W) 20:18: Route: IVP, Drug Form: INJ, Dosing Weight 69.001, kg, PRN, PRN Blood Glucose Results, Start date: 06/23/22 15:18:00 CDT, Duration: 30 day, Stop date: 07/23/22 14:17:00 DRUG WORKER, 0 glucagon 2021-09 Yes 1 mg, Memoria 0-21 Route: IM, l 20:18: Drug form: PDR/INJ, PRN, Dosing Weight 69.001, kg, PRN Blood Glucose Results, Start date: 06/23/22 15:18:00 CDT, Duration: 30 day, Stop date: 07/23/22 14:17:00 DRUG WORKER, 0 ondansetron 2021-09 Yes Notes: Yung ami 0-21 (Same as: l 20:18: Zofran) MEDICATION WASTE Product Size: 4 mg Product Wasted: ___ mg melatonin 2021-09 Yes Notes: Memori a 0-21 (Same as: l 20:18: Melatonin) fluconazole 2021-09 Yes 200 mg = Me moria 0-21 100 mL, l 15:15: IV, [place] 00 [id number], 0 Refill(s) fluconazole 2021-09 Yes 200 mg = Me moria 0-21 100 mL, l 15:15: IV, [place] 00 [id number], 0 Refill(s) metFORMIN 2021-09 Yes 750 mg = 1 Me moria 750 mg oral 0-19 tab, PO, l tablet, 08:47: Daily, [place] extended 00 with release evening meal, # 30 tab, 0 Refill(s) metFORMIN 2021-09 Yes 750 mg = 1 Me moria 750 mg oral 0-19 tab, PO, l tablet, 08:47: Daily, [place] extended 00 with release evening meal, # 30 tab, 0 Refill(s) Saline 2021-09 No Notes: Memoria Flush 0.9% 0-19 (Same as: l 03:29: BD [place] 00 Posiflush) pantoprazol 2021-09 No Notes: For [...] ia 0-19 (Same As: l 03:29: SandoSTATI [place] 00 N). Refrigerat e. MEDICATION WASTE Product [...] 06/23/22 22:28:00 CDT, BSA: 1.89 m2, 0 Saline 2021-09 No Notes: Memoria Flush 0.9% 0-19 (Same as: l 03:29: BD [place] 00 Posiflush) pantoprazol 2021-09 No Notes: For [...] ia 0-19 (Same As: l 03:29: SandoSTATI [place] 00 N). Refrigerat e. MEDICATION WASTE Product [...] 0-19 (Same as: l 02:08: Zofran) [place] MEDICATION WASTE Product Size: 4 mg Product Wasted: ___ mg ondansetron 2021-09 No Notes: Yung ami 0-19 (Same as: l 02:08: Zofran) [place] MEDICATION WASTE Product Size: 4 mg Product Wasted: ___ mg ondansetron No 4mg 4 mg, Slow Univers (ZOFRAN 04-17 IV Push, ity of (PF)) 23:00: 23:46 ONCE, 1 [place] injection 4 00 :00 dose, On Medi lamine mg Mon Branch 04/17/22 at 1800, LISA morpHINE (4 2022-0 2022- No 4mg 4 mg, Slow Univers mg/mL) 04-17 IV Push, ity of injection 4 23:00: 23:50 ONCE, 1 [place] mg 00 :00 dose, On Medical Mon Branch 04/17/22 at 1800, STAT NaCl 0.9% No 1000mL at 999 Uni vers (NS) bolus 04-17 mL/hr, ity of infusion 22:45: 23:45 1,000 mL, Farooq as 1,000 mL 00 :00 IV Medical Infusion, Branch ONCE, 1 dose, On [facility] 04/17/22 at 1745, LISA ketorolac No 30mg 30 mg, Unive rs (TORADOL) 04-17 Slow IV ity of injection 22:15: 22:13 Push, [place] 30 mg 00 :00 ONCE, 1 Medical dose, On Branch [facility] 04/17/22 at 1715, LISA clotrimazol Yes [id number] 1{appli Insert 1 Univers e 1 % 4-23 cator} Applicator ity of vaginal 00:00: into [place] cream 00 vagina at Medical bedtime. [place] clotrimazol Yes [id number] 1{appli Insert 1 Univers e 1 % 4-23 cator} Applicator ity of vaginal 00:00: into [place] cream 00 vagina at Medical bedtime. [place] clotrimazol Yes [id number] 1{appli Insert 1 Univers e 1 % 4-23 cator} Applicator ity of vaginal 00:00: into [place] cream 00 vagina at Medical bedtime. Branch fluconazole 2020- No [id number] 150mg Take 1 Univers (DIFLUCAN) - 05-16 tablet by ity of 150 mg 00:00: 04:59 mouth [place] tablet 00 :00 weekly for Medical 4 doses. Branch fluconazole 2020- No [id number] 150mg Take 1 Univers (DIFLUCAN) 4-23 05-16 tablet by ity of 150 mg 00:00: 04:59 mouth [place] tablet 00 :00 weekly for Medical 4 doses. Branch JARDIANCE Yes Univers 3-05 ity of 00:00: [place] 00 Medical Branch lisinopriL Yes Univers 10 mg 3-05 ity of tablet 00:00: [place] [facility] JARDIANCE 0 Yes Univers 3-05 ity of 00:00: Medical Branch lisinopriL 0 Yes Univers 10 mg 3-05 ity of tablet 00:00: Medical Branch JARDIANCE 0 Yes Univers 3-05 ity of 00:00: Medical Branch lisinopriL Yes Univers 10 mg 3-05 ity of tablet 00:00: Medical Branch clotrimazol Yes [id number] 1{appli Insert 1 Univers e 1 % 6-24 cator} Applicator ity of vaginal 00:00: into [place] cream 00 vagina at Medical bedtime. [place] clotrimazol Yes [id number] 1{appli Insert 1 Univers e 1 % 6-24 cator} Applicator ity of vaginal 00:00: into [place] cream 00 vagina at Medical bedtime. [place] clotrimazol Yes [id number] 1{appli Insert 1 Univers e 1 % 6-24 cator} Applicator ity of vaginal 00:00: into [place] cream 00 vagina at Medical bedtime. [place] clotrimazol Yes [id number] 1{appli Insert 1 Univers e 1 % 6-24 cator} Applicator ity of vaginal 00:00: into [place] cream 00 vagina at Medical bedtime. [place] clotrimazol Yes [id number] 1{appli Insert 1 Univers e 1 % 6-24 cator} Applicator ity of vaginal 00:00: into [place] cream 00 vagina at Medical bedtime. [place] clotrimazol Yes [id number] 1{appli Insert 1 Univers e 1 % 6-24 cator} Applicator ity of vaginal 00:00: into [place] cream 00 vagina at Medical bedtime. [place] clotrimazol Yes [id number] 1{appli Insert 1 [facility] e 1 % 6-24 cator} Applicator ity of vaginal 00:00: into [place] cream 00 vagina at Medical bedtime. [place] fluconazole 2020- No [id number] 150mg Take 1 [facility] (DIFLUCAN) 6-24 06-25 tablet by ity of 150 mg 00:00: 04:59 [place] tablet 00 :00 now for 1 Medical dose. [place] fluconazole 2020- No [id number] 150mg Take 1 [facility] (DIFLUCAN) 02-24-25 tablet by ity of 150 mg 00:00: 04:59 mouth [place] tablet 00 :00 now for 1 Medical dose. [place] clotrimazol Yes [id number] 1{appli Insert 1 [facility] e 1 % 5-18 cator} Applicator ity of vaginal 00:00: into [place] cream 00 vagina at Medical bedtime. [place] clotrimazol Yes [id number] 1{appli Insert 1 [facility] e 1 % 5-18 cator} Applicator ity of vaginal 00:00: into [place] cream 00 vagina at Medical bedtime. [place] clotrimazol Yes [id number] 1{appli Insert 1 [facility] e 1 % 5-18 cator} Applicator ity of vaginal 00:00: into [place] cream 00 vagina at Medical bedtime. [place] clotrimazol Yes [id number] 1{appli Insert 1 [facility] e 1 % 5-18 cator} Applicator ity of vaginal 00:00: into [place] cream 00 vagina at Medical bedtime. [place] clotrimazol Yes [id number] 1{appli Insert 1 [facility] e 1 % 5-18 cator} Applicator ity of vaginal 00:00: into [place] cream 00 vagina at Medical bedtime. [place] clotrimazol Yes [id number] 1{appli Insert 1 [facility] e 1 % 5-18 cator} Applicator ity of vaginal 00:00: into [place] cream 00 vagina at Medical bedtime. [place] clotrimazol 2020- No [id number] 1{appli Insert 1 [facility] e 1 % 5-18 04-23 cator} Applicator ity o f vaginal 00:00: 00:00 into [place] cream 00 :00 vagina at Medical bedtime. [place] clotrimazol 2020- No [id number] 1{appli Insert 1 [facility] e 1 % 5-18 04-23 cator} Applicator ity o f vaginal 00:00: 00:00 into [place] cream 00 :00 vagina at Medical bedtime. Branch azithromyci 2020-0 Yes [id number] 250mg Take 1 [facility] n 4-25 tablet by ity of (ZITHROMAX 00:00: mouth [place] Z-KANNAN) 250 00 SEE-INSTRU Med ical mg tablet CTIONS. Branch Take 500 mg day 1, then 250 mg days 2 to 5. albuterol 2020-0 Yes [id number] 2{puff} Inhale 2 [facility] 90 4-25 Puffs ity of mcg/actuati 00:00: every 4 [place] inhaler 00 (four) Medical hours as Branch needed for Wheezing or Shortness of Breath. predniSONE 2020-0 Yes [id number] 10mg Take 1 [facility] nivers 10 mg 4-25 tablet by ity of tablet 00:00: mouth [place] 00 daily. Medical Branch azithromyci 2020-0 Yes [id number] 250mg Take 1 [facility] n 4-25 tablet by ity of (ZITHROMAX 00:00: mouth [place] Z-KANNAN) 250 00 SEE-INSTRU Med ical mg tablet CTIONS. Branch Take 500 mg day 1, then 250 mg days 2 to 5. albuterol 2020-0 Yes [id number] 2{puff} Inhale 2 [facility] 90 4-25 Puffs ity of mcg/actuati 00:00: every 4 [place] inhaler 00 (four) Medical hours as Branch needed for Wheezing or Shortness of Breath. predniSONE 2020-0 Yes [id number] 10mg Take 1 U nivers 10 mg 4-25 tablet by ity of tablet 00:00: mouth [place] 00 daily. Medical Branch azithromyci 2020-0 Yes [id number] 250mg Take 1 [facility] n 4-25 tablet by ity of (ZITHROMAX 00:00: mouth [place] Z-KANNAN) 250 00 SEE-INSTRU Med ical mg tablet CTIONS. Branch Take 500 mg day 1, then 250 mg days 2 to 5. albuterol 2020-0 Yes [id number] 2{puff} Inhale 2 [facility] 90 4-25 Puffs ity of mcg/actuati 00:00: every 4 [place] inhaler 00 (four) Medical hours as Branch needed for Wheezing or Shortness of Breath. predniSONE 2020-0 Yes [id number] 10mg Take 1 U nivers 10 mg 4-25 tablet by ity of tablet 00:00: mouth [place] 00 daily. Medical Branch azithromyci 2020-0 Yes [id number] 250mg Take 1 [facility] n 4-25 tablet by ity of (ZITHROMAX 00:00: mouth [place] Z-KANNAN) 250 00 SEE-INSTRU Med ical mg tablet CTIONS. Branch Take 500 mg day 1, then 250 mg days 2 to 5. albuterol 2020-0 Yes [id number] 2{puff} Inhale 2 [facility] 90 4-25 Puffs ity of mcg/actuati 00:00: every 4 [place] inhaler 00 (four) Medical hours as Branch needed for Wheezing or Shortness of Breath. predniSONE 2020-0 Yes [id number] 10mg Take 1 U nivers 10 mg 4-25 tablet by ity of tablet 00:00: mouth [place] 00 daily. Medical Branch albuterol 2019-0 Yes [id number] 2{puff} Inhale 2 [facility] 90 4-25 Puffs ity of mcg/actuati 00:00: every 4 [place] inhaler 00 (four) Medical hours as Branch needed for Wheezing or Shortness of Breath. albuterol 2019-0 Yes [id number] 2{puff} Inhale 2 [facility] 90 4-25 Puffs ity of mcg/actuati 00:00: every 4 [place] inhaler 00 (four) Medical hours as Branch needed for Wheezing or Shortness of Breath. albuterol 2019-0 Yes [id number] 2{puff} Inhale 2 [facility] 90 4-25 Puffs ity of mcg/actuati 00:00: every 4 [place] inhaler 00 (four) Medical hours as Branch needed for Wheezing or Shortness of Breath. azithromyci 2020-0 Yes [id number] 250mg Take 1 [facility] n 4-25 tablet by ity of (ZITHROMAX 00:00: mouth [place] Z-KANNAN) 250 00 SEE-INSTRU Med ical mg tablet CTIONS. Branch Take 500 mg day 1, then 250 mg days 2 to 5. albuterol 2020-0 Yes [id number] 2{puff} Inhale 2 [facility] 90 4-25 Puffs ity of mcg/actuati 00:00: every 4 [place] inhaler 00 (four) Medical hours as Branch needed for Wheezing or Shortness of Breath. predniSONE 2020-0 Yes [id number] 10mg Take 1 U nivers 10 mg 4-25 tablet by ity of tablet 00:00: mouth [place] 00 daily. Medical Branch azithromyci 2020-0 Yes [id number] 250mg Take 1 [facility] n 4-25 tablet by ity of (ZITHROMAX 00:00: mouth [place] Z-KANNAN) 250 00 SEE-INSTRU Med ical mg tablet CTIONS. Branch Take 500 mg day 1, then 250 mg days 2 to 5. albuterol 2020-0 Yes [id number] 2{puff} Inhale 2 [facility] 90 4-25 Puffs ity of mcg/actuati 00:00: every 4 [place] inhaler 00 (four) Medical hours as Branch needed for Wheezing or Shortness of Breath. predniSONE 2020-0 Yes [id number] 10mg Take 1 U nivers 10 mg 4-25 tablet by ity of tablet 00:00: mouth [place] 00 daily. Medical Branch azithromyci 2020-0 Yes [id number] 250mg Take 1 [facility] n 4-25 tablet by ity of (ZITHROMAX 00:00: mouth [place] Z-KANNAN) 250 00 SEE-INSTRU Med ical mg tablet CTIONS. Branch Take 500 mg day 1, then 250 mg days 2 to 5. albuterol 2020-0 Yes [id number] 2{puff} Inhale 2 [facility] 90 4-25 Puffs ity of mcg/actuati 00:00: every 4 [place] inhaler 00 (four) Medical hours as Branch needed for Wheezing or Shortness of Breath. predniSONE 2020-0 Yes [id number] 10mg Take 1 U nivers 10 mg 4-25 tablet by ity of tablet 00:00: mouth [place] 00 daily. Medical Branch azithromyci 2020-0 2020- No [id number] 250mg Take 1 [facility] n 4-25 04-23 tablet by ity of (ZITHROMAX 00:00: 00:00 mouth [place] Z-KANNAN) 250 00 :00 SEE-INSTRU Med ical mg tablet CTIONS. Branch Take 500 mg day 1, then 250 mg days 2 to 5. predniSONE 2020-0 2020- No [id number] 10mg Take 1 [facility] 10 mg 4-25 04-23 tablet by ity of tablet 00:00: 00:00 mouth [place] 00 :00 daily. Medical Branch azithromyci 2019-2020- No [id number] 250mg Take 1 [facility] n 4-25 04-23 tablet by ity of (ZITHROMAX 00:00: 00:00 mouth [place] Z-KANNAN) 250 00 :00 SEE-INSTRU Med ical mg tablet CTIONS. Branch Take 500 mg day 1, then 250 mg days 2 to 5. predniSONE 2019-2020- No [id number] 10mg Take 1 [facility] 10 mg 4-25 04-23 tablet by ity of tablet 00:00: 00:00 [facility] 00 :00 daily. Medical Branch metoclopram 2018- Yes [id number] 10mg Take 1 [facility] stephany HCl 10 4-20 tablet by ity of mg tablet 00:00: mouth [place] 00 every 6 Medical (six) Branch hours as needed for Nausea and Vomiting (N/V). metoclopram 2019- Yes [id number] 10mg Take 1 [facility] stephany HCl 10 4-20 tablet by ity of mg tablet 00:00: [facility] 00 every 6 Medical (six) Branch hours as needed for Nausea and Vomiting (N/V). metoclopram 2019-0 Yes [id number] 10mg Take 1 [facility] stephany HCl 10 4-20 tablet by ity of mg tablet 00:00: mouth [place] 00 every 6 Medical (six) Branch hours as needed for Nausea and Vomiting (N/V). metoclopram 2019-0 Yes [id number] 10mg Take 1 [facility] stephany HCl 10 4-20 tablet by ity of mg tablet 00:00: [facility] 00 every 6 Medical (six) Branch hours as needed for Nausea and Vomiting (N/V). metoclopram 2019-0 Yes [id number] 10mg Take 1 [facility] stephany HCl 10 4-20 tablet by ity of mg tablet 00:00: mouth [place] 00 every 6 Medical (six) Branch hours as needed for Nausea and Vomiting (N/V). metoclopram 2019-0 Yes [id number] 10mg Take 1 [facility] stephany HCl 10 4-20 tablet by ity of mg tablet 00:00: mouth [place] 00 every 6 Medical (six) Branch hours as needed for Nausea and Vomiting (N/V). metoclopram 2019-0 Yes [id number] 10mg Take 1 [facility] stephany HCl 10 4-20 tablet by ity of mg tablet 00:00: mouth [place] 00 every 6 Medical (six) Branch hours as needed for Nausea and Vomiting (N/V). metoclopram 2019-0 Yes [id number] 10mg Take 1 [facility] stephany HCl 10 4-20 tablet by ity of mg tablet 00:00: mouth [place] 00 every 6 Medical (six) Branch hours as needed for Nausea and Vomiting (N/V). metoclopram 2019-0 Yes [id number] 10mg Take 1 [facility] stephany HCl 10 4-20 tablet by ity of mg tablet 00:00: mouth [place] 00 every 6 Medical (six) Branch hours as needed for Nausea and Vomiting (N/V). metoclopram 2019-0 Yes [id number] 10mg Take 1 [facility] stephany HCl 10 4-20 tablet by ity of mg tablet 00:00: mouth [place] 00 every 6 Medical (six) Branch hours as needed for Nausea and Vomiting (N/V). metoclopram 2019-0 Yes [id number] 10mg Take 1 [facility] stephany HCl 10 4-20 tablet by ity of mg tablet 00:00: mouth [place] 00 every 6 Medical (six) Branch hours as needed for Nausea and Vomiting (N/V). lactobacill 2019- Yes [id number] 1{tbl} Take 1 [facility] us 3-21 tablet by ity of acidophilus 00:00: mouth 2 [place] 25 million 00 (two) Medical cell -100 times Branch mg captab daily. lactobacill 2019-0 Yes [id number] 1{tbl} Take 1 [facility] us 3-21 tablet by ity of acidophilus 00:00: mouth 2 [place] 25 million 00 (two) Medical cell -100 times Branch mg captab daily. lactobacill 2019-0 Yes [id number] 1{tbl} Take 1 [facility] us 3-21 tablet by ity of acidophilus 00:00: mouth 2 [place] 25 million 00 (two) Medical cell -100 times Branch mg captab daily. lactobacill 2019-0 Yes [id number] 1{tbl} Take 1 [facility] us 3-21 tablet by ity of acidophilus 00:00: mouth 2 [place] 25 million 00 (two) Medical cell -100 times Branch mg captab daily. lactobacill 2019-0 Yes [id number] 1{tbl} Take 1 [facility] us 3-21 tablet by ity of acidophilus 00:00: mouth 2 [place] 25 million 00 (two) Medical cell -100 times Branch mg captab daily. lactobacill Yes [id number] 1{tbl} Take 1 [facility] us 3-21 tablet by ity of acidophilus 00:00: mouth 2 [place] 25 million 00 (two) Medical cell -100 times Branch mg captab daily. lactobacill Yes [id number] 1{tbl} Take 1 [facility] us 3-21 tablet by ity of acidophilus 00:00: mouth 2 [place] 25 million 00 (two) Medical cell -100 times Branch mg captab daily. lactobacill Yes [id number] 1{tbl} Take 1 [facility] us 3-21 tablet by ity of acidophilus 00:00: mouth 2 [place] 25 million 00 (two) Medical cell -100 times Branch mg captab daily. lactobacill Yes [id number] 1{tbl} Take 1 [facility] us 3-21 tablet by ity of acidophilus 00:00: mouth 2 [place] 25 million 00 (two) Medical cell -100 times Branch mg captab daily. lactobacill Yes [id number] 1{tbl} Take 1 [facility] us 3-21 tablet by ity of acidophilus 00:00: mouth 2 [place] 25 million 00 (two) Medical cell -100 times Branch mg captab daily. lactobacill Yes [id number] 1{tbl} Take 1 [facility] us 3-21 tablet by ity of acidophilus 00:00: mouth 2 [place] 25 million 00 (two) Medical cell -100 times Branch mg captab daily. aspirin 81 2018- Yes [id number] 81mg Take 1 [facility] mg chewable 2-21 tablet by ity of tablet 00:00: mouth [place] 00 daily. Medical Branch pantoprazol 2018- Yes [id number] 40mg Take 1 [facility] e 40 mg EC 2-21 tablet by ity of tablet 00:00: mouth [place] 00 daily. Medical Branch aspirin 81 2018-0 Yes [id number] 81mg Take 1 [facility] mg chewable 2-21 tablet by ity of tablet 00:00: mouth [place] 00 daily. Medical Branch pantoprazol 2019- Yes [id number] 40mg Take 1 [facility] e 40 mg EC 2-21 tablet by ity of tablet 00:00: mouth [place] 00 daily. Medical Branch aspirin 81 2019-0 Yes [id number] 81mg Take 1 [facility] mg chewable 2-21 tablet by ity of tablet 00:00: mouth [place] 00 daily. Medical Branch pantoprazol 2019-0 Yes [id number] 40mg Take 1 [facility] e 40 mg EC 2-21 tablet by ity of tablet 00:00: mouth [place] 00 daily. Medical Branch aspirin 81 2019-0 Yes [id number] 81mg Take 1 [facility] mg chewable 2-21 tablet by ity of tablet 00:00: mouth [place] 00 daily. Medical Branch pantoprazol 2019-0 Yes [id number] 40mg Take 1 [facility] e 40 mg EC 2-21 tablet by ity of tablet 00:00: mouth [place] 00 daily. Medical Branch aspirin 81 2019-0 Yes [id number] 81mg Take 1 [facility] mg chewable 2-21 tablet by ity of tablet 00:00: mouth [place] 00 daily. Medical Branch pantoprazol 2019-0 Yes [id number] 40mg Take 1 [facility] e 40 mg EC 2-21 tablet by ity of tablet 00:00: mouth [place] 00 daily. Medical Branch aspirin 81 2019-0 Yes [id number] 81mg Take 1 [facility] mg chewable 2-21 tablet by ity of tablet 00:00: mouth [place] 00 daily. Medical Branch pantoprazol 2019-0 Yes [id number] 40mg Take 1 [facility] e 40 mg EC 2-21 tablet by ity of tablet 00:00: mouth [place] 00 daily. Medical Branch aspirin 81 2019-0 Yes [id number] 81mg Take 1 [facility] mg chewable 2-21 tablet by ity of tablet 00:00: mouth [place] 00 daily. Medical Branch pantoprazol 2019-0 Yes [id number] 40mg Take 1 [facility] e 40 mg EC 2-21 tablet by ity of tablet 00:00: mouth [place] 00 daily. Medical Branch aspirin 81 2019-0 Yes [id number] 81mg Take 1 [facility] mg chewable 2-21 tablet by ity of tablet 00:00: mouth [place] 00 daily. Medical Branch pantoprazol 2019-0 Yes [id number] 40mg Take 1 [facility] e 40 mg EC 2-21 tablet by ity of tablet 00:00: mouth [place] 00 daily. Medical Branch aspirin 81 2019-0 Yes [id number] 81mg Take 1 [facility] mg chewable 2-21 tablet by ity of tablet 00:00: mouth [place] 00 daily. Medical Branch pantoprazol Yes [id number] 40mg Take 1 [facility] e 40 mg EC 2-21 tablet by ity of tablet 00:00: mouth [place] 00 daily. Medical Branch aspirin 81 0 Yes [id number] 81mg Take 1 [facility] mg chewable 2-21 tablet by ity of tablet 00:00: mouth [place] 00 daily. Medical Branch pantoprazol Yes [id number] 40mg Take 1 [facility] e 40 mg EC 2-21 tablet by ity of tablet 00:00: mouth [place] 00 daily. Medical Branch aspirin 81 Yes [id number] 81mg Take 1 [facility] mg chewable 2-21 tablet by ity of tablet 00:00: mouth [place] 00 daily. Medical Branch pantoprazol Yes [id number] 40mg Take 1 [facility] e 40 mg EC 2-21 tablet by ity of tablet 00:00: mouth [place] 00 daily. Medical Branch insulin NPH Yes [id number] 14U inject 14 [facility] 100 unit/mL 2-20 Units ity of injection 00:00: under the [place] 00 skin every Medical morning. Branch insulin NPH Yes [id number] 10U inject 10 [facility] 100 unit/mL 2-20 Units ity of injection 00:00: under the [place] 00 skin every Medical evening. Branch metoclopram Yes [id number] 10mg Take 1 [facility] stephany HCl 10 2-20 tablet by ity of mg tablet 00:00: mouth [place] 00 every 6 Medical (six) Branch hours as needed for Nausea and Vomiting (N/V). insulin Yes [id number] Use as Uni vers syringe-nee 2-20 directed ity of dle U-100 1 00:00: [place] ml (INSULIN 00 Medical SYRINGE) 1 Branch mL 29 gauge x 1/2" Syrg metformin Yes [id number] 750mg Take 1 [facility] ER 750 mg 2-20 tablet by ity o f 24 hr 00:00: mouth [place] tablet 00 daily with Medical breakfast. Branch atorvastati Yes [id number] 40mg Take 1 [facility] n 40 mg 2-20 tablet by ity of tablet 00:00: mouth at [place] 00 bedtime. Medical Branch insulin NPH Yes [id number] 14U inject 14 [facility] 100 unit/mL 2-20 Units ity of injection 00:00: under the [place] 00 skin every Medical morning. Branch insulin NPH Yes [id number] 10U inject 10 [facility] 100 unit/mL 2-20 Units ity of injection 00:00: under the [place] 00 skin every Medical evening. Branch metoclopram Yes [id number] 10mg Take 1 [facility] stephany HCl 10 2-20 tablet by ity of mg tablet 00:00: mouth [place] 00 every 6 Medical (six) Branch hours as needed for Nausea and Vomiting (N/V). insulin Yes [id number] Use as [facility] vers syringe-nee 2-20 directed ity of dle U-100 1 00:00: [place] ml (INSULIN 00 Medical SYRINGE) 1 Branch mL 29 gauge x 1/2" Syrg metformin 2018-0 Yes [id number] 750mg Take 1 [facility] ER 750 mg 2-20 tablet by ity o f 24 hr 00:00: mouth [place] tablet 00 daily with Medical breakfast. Branch atorvastati Yes [id number] 40mg Take 1 [facility] n 40 mg 2-20 tablet by ity of tablet 00:00: mouth at [place] 00 bedtime. Medical Branch insulin NPH Yes [id number] 14U inject 14 [facility] 100 unit/mL 2-20 Units ity of injection 00:00: under the [place] 00 skin every Medical morning. Branch insulin NPH Yes [id number] 10U inject 10 [facility] 100 unit/mL 2-20 Units ity of injection 00:00: under the [place] 00 skin every Medical evening. Branch metoclopram Yes [id number] 10mg Take 1 [facility] stephany HCl 10 2-20 tablet by ity of mg tablet 00:00: mouth [place] 00 every 6 Medical (six) Branch hours as needed for Nausea and Vomiting (N/V). insulin 2018- Yes [id number] Use as [facility] vers syringe-nee 2-20 directed ity of dle U-100 1 00:00: [place] ml (INSULIN 00 Medical SYRINGE) 1 Branch mL 29 gauge x 1/2" Syrg metformin 2018-0 Yes [id number] 750mg Take 1 [facility] ER 750 mg 2-20 tablet by ity o f 24 hr 00:00: mouth [place] tablet 00 daily with Medical breakfast. Branch atorvastati Yes [id number] 40mg Take 1 [facility] n 40 mg 2-20 tablet by ity of tablet 00:00: mouth at [place] 00 bedtime. Medical Branch insulin NPH Yes [id number] 14U inject 14 [facility] 100 unit/mL 2-20 Units ity of injection 00:00: under the [place] 00 skin every Medical morning. Branch insulin NPH Yes [id number] 10U inject 10 [facility] 100 unit/mL 2-20 Units ity of injection 00:00: under the [place] 00 skin every Medical evening. Branch metoclopram Yes [id number] 10mg Take 1 [facility] stephany HCl 10 2-20 tablet by ity of mg tablet 00:00: mouth [place] 00 every 6 Medical (six) Branch hours as needed for Nausea and Vomiting (N/V). insulin Yes [id number] Use as [facility] vers syringe-nee 2-20 directed ity of dle U-100 1 00:00: [place] ml (INSULIN 00 Medical SYRINGE) 1 Branch mL 29 gauge x 1/2" Syrg metformin 2018- Yes [id number] 750mg Take 1 [facility] ER 750 mg 2-20 tablet by ity o f 24 hr 00:00: mouth [place] tablet 00 daily with Medical breakfast. Branch atorvastati Yes [id number] 40mg Take 1 [facility] n 40 mg 2-20 tablet by ity of tablet 00:00: mouth at [place] 00 bedtime. Medical Branch insulin NPH Yes [id number] 14U inject 14 [facility] 100 unit/mL 2-20 Units ity of injection 00:00: under the [place] 00 skin every Medical morning. Branch metoclopram Yes [id number] 10mg Take 1 [facility] stephany HCl 10 2-20 tablet by ity of mg tablet 00:00: mouth [place] 00 every 6 Medical (six) Branch hours as needed for Nausea and Vomiting (N/V). insulin 2018- Yes [id number] Use as [facility] vers syringe-nee 2-20 directed ity of dle U-100 1 00:00: [place] ml (INSULIN 00 Medical SYRINGE) 1 Branch mL 29 gauge x 1/2" Syrg metformin 2018-0 Yes [id number] 750mg Take 1 [facility] ER 750 mg 2-20 tablet by ity o f 24 hr 00:00: mouth [place] tablet 00 daily with Medical breakfast. Branch atorvastati 2019-0 Yes [id number] 40mg Take 1 [facility] n 40 mg 2-20 tablet by ity of tablet 00:00: mouth at [place] 00 bedtime. Medical Branch insulin NPH 2018-0 Yes [id number] 14U inject 14 [facility] 100 unit/mL 2-20 Units ity of injection 00:00: under the [place] 00 skin every Medical morning. Branch metoclopram 2018-0 Yes [id number] 10mg Take 1 [facility] stephany HCl 10 2-20 tablet by ity of mg tablet 00:00: mouth [place] 00 every 6 Medical (six) Branch hours as needed for Nausea and Vomiting (N/V). insulin 2018- Yes [id number] Use as [facility] vers syringe-nee 2-20 directed ity of dle U-100 1 00:00: [place] ml (INSULIN 00 Medical SYRINGE) 1 Branch mL 29 gauge x 1/2" Syrg metformin 2018-0 Yes [id number] 750mg Take 1 [facility] ER 750 mg 2-20 tablet by ity o f 24 hr 00:00: mouth [place] tablet 00 daily with Medical breakfast. Branch atorvastati 0 Yes [id number] 40mg Take 1 [facility] n 40 mg 2-20 tablet by ity of tablet 00:00: mouth at [place] 00 bedtime. Medical Branch insulin NPH 2018-0 Yes [id number] 14U inject 14 [facility] 100 unit/mL 2-20 Units ity of injection 00:00: under the [place] 00 skin every Medical morning. Branch insulin NPH 2018-0 Yes [id number] 14U inject 14 [facility] 100 unit/mL 2-20 Units ity of injection 00:00: under the [place] 00 skin every Medical morning. Branch metoclopram 2018-0 Yes [id number] 10mg Take 1 [facility] stephany HCl 10 2-20 tablet by ity of mg tablet 00:00: mouth [place] 00 every 6 Medical (six) Branch hours as needed for Nausea and Vomiting (N/V). insulin 2018-0 Yes [id number] Use as [facility] vers syringe-nee 2-20 directed ity of dle U-100 1 00:00: [place] ml (INSULIN 00 Medical SYRINGE) 1 Branch mL 29 gauge x 1/2" Syrg metformin 2018-0 Yes [id number] 750mg Take 1 [facility] ER 750 mg 2-20 tablet by ity o f 24 hr 00:00: mouth [place] tablet 00 daily with Medical breakfast. Branch atorvastati Yes [id number] 40mg Take 1 [facility] n 40 mg 2-20 tablet by ity of tablet 00:00: mouth at [place] 00 bedtime. Medical Branch insulin NPH Yes [id number] 10U inject 10 [facility] 100 unit/mL 2-20 Units ity of injection 00:00: under the [place] 00 skin every Medical evening. Branch metoclopram Yes [id number] 10mg Take 1 [facility] stephany HCl 10 2-20 tablet by ity of mg tablet 00:00: mouth [place] 00 every 6 Medical (six) Branch hours as needed for Nausea and Vomiting (N/V). insulin Yes [id number] Use as [facility] vers syringe-nee 2-20 directed ity of dle U-100 1 00:00: [place] ml (INSULIN 00 Medical SYRINGE) 1 Branch mL 29 gauge x 1/2" Syrg metformin Yes [id number] 750mg Take 1 [facility] ER 750 mg 2-20 tablet by ity o f 24 hr 00:00: mouth [place] tablet 00 daily with Medical breakfast. Branch atorvastati Yes [id number] 40mg Take 1 [facility] n 40 mg 2-20 tablet by ity of tablet 00:00: mouth at [place] 00 bedtime. Medical Branch insulin NPH Yes [id number] 14U inject 14 [facility] 100 unit/mL 2-20 Units ity of injection 00:00: under the [place] 00 skin every Medical morning. Branch insulin NPH Yes [id number] 10U inject 10 [facility] 100 unit/mL 2-20 Units ity of injection 00:00: under the [place] 00 skin every Medical evening. Branch metoclopram Yes [id number] 10mg Take 1 [facility] stephany HCl 10 2-20 tablet by ity of mg tablet 00:00: mouth [place] 00 every 6 Medical (six) Branch hours as needed for Nausea and Vomiting (N/V). insulin Yes [id number] Use as [facility] vers syringe-nee 2-20 directed ity of dle U-100 1 00:00: [place] ml (INSULIN 00 Medical SYRINGE) 1 Branch mL 29 gauge x 1/2" Syrg metformin 2018- Yes [id number] 750mg Take 1 [facility] ER 750 mg 2-20 tablet by ity o f 24 hr 00:00: mouth [place] tablet 00 daily with Medical breakfast. Branch atorvastati 2019-0 Yes [id number] 40mg Take 1 [facility] n 40 mg 2-20 tablet by ity of tablet 00:00: mouth at [place] 00 bedtime. Medical Branch insulin NPH 0 Yes [id number] 14U inject 14 [facility] 100 unit/mL 2-20 Units ity of injection 00:00: under the [place] 00 skin every Medical morning. Branch insulin NPH Yes [id number] 10U inject 10 [facility] 100 unit/mL 2-20 Units ity of injection 00:00: under the [place] 00 skin every Medical evening. Branch metoclopram Yes [id number] 10mg Take 1 [facility] stephany HCl 10 2-20 tablet by ity of mg tablet 00:00: mouth [place] 00 every 6 Medical (six) Branch hours as needed for Nausea and Vomiting (N/V). insulin Yes [id number] Use as [facility] vers syringe-nee 2-20 directed ity of dle U-100 1 00:00: [place] ml (INSULIN 00 Medical SYRINGE) 1 Branch mL 29 gauge x 1/2" Syrg metformin 2018-0 Yes [id number] 750mg Take 1 [facility] ER 750 mg 2-20 tablet by ity o f 24 hr 00:00: mouth [place] tablet 00 daily with Medical breakfast. Branch atorvastati 2018-0 Yes [id number] 40mg Take 1 [facility] n 40 mg 2-20 tablet by ity of tablet 00:00: mouth at [place] 00 bedtime. Medical Branch insulin NPH Yes [id number] 14U inject 14 [facility] 100 unit/mL 2-20 Units ity of injection 00:00: under the [place] 00 skin every Medical morning. Branch insulin NPH 0 Yes [id number] 10U inject 10 [facility] 100 unit/mL 2-20 Units ity of injection 00:00: under the [place] 00 skin every Medical evening. Branch metoclopram Yes [id number] 10mg Take 1 [facility] stephany HCl 10 2-20 tablet by ity of mg tablet 00:00: mouth [place] 00 every 6 Medical (six) Branch hours as needed for Nausea and Vomiting (N/V). insulin Yes [id number] Use as [facility] vers syringe-nee 2-20 directed ity of dle U-100 1 00:00: [place] ml (INSULIN 00 Medical SYRINGE) 1 Branch mL 29 gauge x 1/2" Syrg metformin Yes [id number] 750mg Take 1 [facility] ER 750 mg 2-20 tablet by ity o f 24 hr 00:00: mouth [place] tablet 00 daily with Medical breakfast. Branch atorvastati Yes [id number] 40mg Take 1 Univers n 40 mg 2-20 tablet by ity of tablet 00:00: mouth at [place] 00 bedtime. Medical Branch insulin NPH 2020- No [id number] 10U inject 10 Univers 100 unit/mL 2-20 04-23 Units ity of injection 00:00[place] :[place] skin every Medical evening. [place] insulin NPH 2020- No [id number] 10U inject 10 Univers 100 unit/mL 2-20 04-23 Units ity of injection 00:00[place] skin every Medical evening. [place] clotrimazol Yes [id number] 1{appli Insert 1 Univers e 06-01 cator} Applicator ity of (CLOTRIMAZO 00:00: into [place] LE-7) 1 % 00 vagina at Medic al vaginal bedtime. [place] cream clotrimazol Yes [id number] 1{appli Insert 1 Univers e 06-01 cator} Applicator ity of (CLOTRIMAZO 00:00: into [place] LE-7) 1 % 00 vagina at Medic al vaginal bedtime. [place] cream clotrimazol Yes [id number] 1{appli Insert 1 Univers e 06-01 cator} Applicator ity of (CLOTRIMAZO 00:00: into [place] LE-7) 1 % 00 vagina at Medic al vaginal bedtime. [place] cream clotrimazol Yes [id number] 1{appli Insert 1 Univers e 06-01 cator} Applicator ity of (CLOTRIMAZO 00:00: into [place] LE-7) 1 % 00 vagina at Medic al vaginal bedtime. [place] cream clotrimazol Yes [id number] 1{appli Insert 1 Univers e 06-01 cator} Applicator ity of (CLOTRIMAZO 00:00: into [place] LE-7) 1 % 00 vagina at Medic al vaginal bedtime. Branch cream clotrimazol Yes [id number] 1{appli Insert 1 Univers e 06-01 cator} Applicator ity of (CLOTRIMAZO 00:00: into [place] LE-7) 1 % 00 vagina at Medic al vaginal bedtime. Branch cream clotrimazol Yes [id number] 1{appli Insert 1 Univers e 06-01 cator} Applicator ity of (CLOTRIMAZO 00:00: into [place] LE-7) 1 % 00 vagina at Medic al vaginal bedtime. Branch cream clotrimazol Yes [id number] 1{appli Insert 1 Univers e 06-01 cator} Applicator ity of (CLOTRIMAZO 00:00: into [place] LE-7) 1 % 00 vagina at Medic al vaginal bedtime. Branch cream clotrimazol Yes [id number] 1{appli Insert 1 Univers 06-01 cator} Applicator ity of (CLOTRIMAZO 00:00: into [place] LE-7) 1 % 00 vagina at Medic al vaginal bedtime. Branch cream clotrimazol Yes [id number] 1{appli Insert 1 Univers e 06-01 cator} Applicator ity of (CLOTRIMAZO 00:00: into [place] LE-7) 1 % 00 vagina at Medic al vaginal bedtime. Branch cream clotrimazol Yes [id number] 1{appli Insert 1 Univers e 06-01 cator} Applicator ity of (CLOTRIMAZO 00:00: into [place] LE-7) 1 % 00 vagina at Medic al vaginal bedtime. Branch cream Immunizations Ordered Filled Immunization Date Status Comments [facility] e Immunization Name Name TDAP 2015-06-01 Completed [facility] 00:00:00 [facility] TDAP 2015-06-01 Completed [facility] 00:00:00 [facility] TDAP 2015-06-01 Completed University 00:00:00 [facility] TDAP 2015-06-01 Completed [facility] 00:00:00 [facility] TDAP 2015-06-01 Completed University of 00:00:00 [place] [facility] TDAP 2015-06-01 Completed University of 00:00:00 [place] [facility] TDAP 2015-06-01 Completed University of 00:00:00 [place] [facility] Tdap 2015-06-01 Completed University of 00:00:00 [place] [facility] Tdap 2015-06-01 Completed University of 00:00:00 [place] [facility] Tdap 2015-06-01 Completed University of 00:00:00 [place] [facility] Tdap 2015-06-01 Completed University of 00:00:00 [facility] Vital Signs Vital Name Observation Time Observation Value Comments Source Systolic blood 2022-04-17 21:30:00 108 mm[Hg] Univer sity of pressure [facility] Diastolic blood 2022-04-17 21:30:00 77 mm[Hg] Unive rsity of pressure [facility] Heart rate 2022-04-17 21:30:00 74 /min [facility] Respiratory rate 2022-04-17 21:30:00 24 /min [facility] saturation in 2022-04-17 21:30:00 97 /min [facility] Arterial blood by [facility] Pulse oximetry [place] Body temperature 2022-04-17 21:14:[address] [facility] Body height 2022-04-17 21:14:[address] [facility] Body weight 2022-04-17 21:14:[address] [facility] BMI 2022-04-17 21:14:00 29.70 kg/m2 [facility] Systolic blood 2020-12-24 14:35:00 126 mm[Hg] Univer sity of pressure [facility] Diastolic blood 2020-12-24 14:35:00 79 mm[Hg] Unive rsity of pressure [facility] Heart rate 2020-12-24 14:35:00 72 /min [facility] Body temperature 2020-12-24 14:35:00 37.28 Joanna [facility] Respiratory rate 2020-12-24 14:35:00 16 /min [facility] Body height 2020-12-24 14:35:[address] [facility] Body weight 2020-12-24 14:35:00 81.103 kg [facility] [place] [facility] BMI 2020-12-24 14:35:00 30.69 kg/m2 [facility] [place] [facility] Systolic blood 2020-02-25 18:20:00 139 mm[Hg] Univer sity of pressure [place] [facility] Diastolic blood 2020-02-25 18:20:00 87 mm[Hg] Unive rsity of pressure [place] [facility] Heart rate 2020-02-25 18:20:00 88 /min [facility] [place] [facility] Body temperature 2020-02-25 18:20:00 37 Joanna Univ ersity [facility] [place] [facility] Respiratory rate 2020-02-25 18:20:00 16 /min Univ ersity [facility] [place] [facility] Body height 2020-02-25 18:20:00 162.6 cm [facility] [place] [facility] Body weight 2020-02-25 18:20:00 84.879 kg [facility] [place] [facility] BMI 2020-02-25 18:20:00 32.12 kg/m2 [facility] [place] [facility] Heart rate 2020-01-19 19:44:00 89 /min [facility] [place] [facility] Body temperature 2020-01-19 19:44:00 36.5 Joanna Univ ersity [facility] [place] [facility] Respiratory rate 2020-01-19 19:44:00 16 /min Univ ersity [facility] [place] [facility] Body height 2020-01-19 19:44:00 162.6 cm [facility] [place] [facility] Body weight 2020-01-19 19:44:00 83.604 kg [facility] [place] [facility] BMI 2020-01-19 19:44:00 31.64 kg/m2 [facility] [place] [facility] Systolic blood 2020-01-19 19:44:00 132 mm[Hg] Univer sity of pressure [place] [facility] Diastolic blood 2020-01-19 19:44:00 88 mm[Hg] Unive rsity of pressure [place] [facility] Heart Rate 2022-07-02 16:41:41 [facility] [place] Temperature Oral (F) 2022-07-02 16:41:35 99.3 F [facility] Systolic (mm Hg) 2022-07-02 16:41:28 [facility] Diastolic (mm Hg) 2022-07-02 16:41:28 Mem o[facility] [place] Temperature Oral (F) 2022-06-30 21:00:00 97.7 F [facility] Systolic (mm Hg) 2022-06-26 04:00:00 Yung rial [facility] Diastolic (mm Hg) 2022-06-26 04:00:00 Mem orial [place] Respitory Rate 2022-06-26 04:00:00 [facility] [place] Respitory Rate 2022-06-26 03:00:00 Memori al [facility] Systolic (mm Hg) 2022-06-26 03:00:00 Yung rial [place] Diastolic (mm Hg) 2022-06-26 03:00:00 Mem orial [place] Respitory Rate 2022-06-26 02:00:00 [facility] [place] Systolic (mm Hg) 2022-06-26 02:00:00 Yung rial [place] Diastolic (mm Hg) 2022-06-26 02:00:00 Mem [facility] [place] Temperature Oral (F) 2022-06-25 21:00:00 97.2 F [facility] [place] Temperature Oral (F) 2022-06-25 17:05:00 97.8 F [facility] Temperature Oral (F) 2022-06-25 13:19:00 97.9 F [facility] Height 2022-06-23 20:26:00 162.56 cm [facility] [place] Weight 2022-06-23 20:26:00 [facility] [place] Height 2022-06-23 19:00:00 5 [ft_i] [facility] Weight 2022-06-23 19:00:00 [facility] [place] BMI Calculated 2022-06-23 19:00:00 [facility] [place] Heart Rate 2022-06-23 16:07:59 [facility] Systolic (mm Hg) 2022-06-23 16:07:38 Yung rial [facility] Diastolic (mm Hg) 2022-06-23 16:07:38 Mem [facility] [place] Temperature Oral (F) 2022-06-23 16:07:36 99.1 F [facility] Temperature Oral (F) 2022-06-21 21:10:00 97.8 F [facility] Height 2022-06-21 08:42:00 5 [ft_i] [facility] Weight 2022-06-21 08:42:00 [facility] BMI Calculated 2022-06-21 08:42:00 [facility] [place] Systolic (mm Hg) 2022-06-21 06:59:00 Yung rial [place] Diastolic (mm Hg) 2022-06-21 06:59:00 [facility] [place] Respitory Rate 2022-06-21 06:59:00 Memori al [facility] Respitory Rate 2022-06-21 06:00:00 [facility] [place] Systolic (mm Hg) 2022-06-21 06:00:00 Yung rial [place] Diastolic (mm Hg) 2022-06-21 06:00:00 [facility] [place] Respitory Rate 2022-06-21 05:00:00 [facility] [place] Systolic (mm Hg) 2022-06-21 05:00:00 Yung rial [place] Diastolic (mm Hg) 2022-06-21 05:00:00 [facility] [place] Heart Rate 2022-06-21 02:58:00 [facility] [place] Heart Rate 2022-06-21 00:55:00 [facility] [place] Height 2022-06-21 00:32:00 162.56 cm [facility] BMI Calculated 2022-06-21 00:32:00 Memori al [facility] Weight 2022-06-21 00:32:00 [facility] [place] Temperature Oral (F) 2022-06-21 00:32:00 98.5 F [facility] Heart Rate 2022-06-21 00:32:00 [facility] Procedure Date / Time Performing Clinician Source Performed XR CHEST 1 VW 2022-04-17 22:08:00 Juana Rodriguez [facility] TROPONIN I 2022-04-17 21:50:00 Juana Rodriguez [facility] COMP. METABOLIC PANEL 2022-04-17 21:50:00 Juana Rodriguez [facility] ([id number]) [facility] CBC WITH DIFF 2022-04-17 21:50:00 Juana Rodriguez [facility] LACTIC ACID WHOLE BLOOD 2022-04-17 21:50:00 Juana Rodriguez [facility] ASSIGNMENT OF BENEFITS 2020-12-24 14:09:37 Doctor Unassigned, No [facility] Name Medical Branch BCCS-RELATED 2020-01-16 05:01:00 Doctor Unassigned, No [facility] DOCUMENTATION Name Medical [place] [facility] [place] [facility] Encounters Start End Encounter Admission Attending Care Care Encounter Source Date/Time Date/Time Type Type Clinicians Facility Department ID 2022-08-07 Outpatient [facility] [id number] [place] 08:32:58 [id number] [facility] 2022-07-24 Outpatient [facility] [id number] [place] 11:32:56 [id number] [facility] 2022-07-19 Outpatient [facility] [id number] [place] 16:06:29 [id number] [facility] 2022-08-07 2022-08-07 Outpatient PRAVEEN [facility] [id number] [place] 11:00:00 11:00:00 [facility] 2022-06-23 2022-07-02 Inpatient nullFlavo [facility] [id number] Memoria 19:30:00 20:45:00 [place] 94 l [facility] 2022-06-23 2022-07-02 Inpatient nullFlavo [facility] [id number] Memoria 19:30:00 20:45:00 r [place] 94 [facility] 2022-06-23 2022-07-02 Outpatient [facility] [id number] 14:30:00 15:45:00 Neftali Lopes 2022-06-23 2022-07-02 Inpatient MARY [facility] MED [id number] [facility] 14:30:00 15:45:00 NEFTALI 2022-06-21 2022-06-23 Inpatient nullFlavo [facility] [id number] Memoria 08:19:00 19:00:00 [place] 92 l [facility] 2022-06-21 2022-06-23 Inpatient nullFlavo [facility] [id number] Memoria 08:19:00 19:00:00 r Dayo 92 l [facility] 2022-06-23 2022-06-23 Outpatient Mary [facility] [id number] 14:30:00 14:30:00 Neftali 94 [place] 2022-06-21 2022-06-23 Outpatient Shanw [facility] [id number] 03:19:00 14:00:00 Aliza 92 Shireen 2022-06-21 2022-06-23 Inpatient [id number] [facility] 03:19:00 14:00:00 ALIZA 2022-06-21 2022-06-21 Emergency nullFlavo [facility] [id number] Memoria 00:31:51 07:22:00 [place] 00 l [facility] 2022-06-21 2022-06-21 Emergency trihealthFlavo [facility] [id number] Memoria 00:31:51 07:22:00 r [place] 00 l [facility] 2022-06-20 2022-06-21 Outpatient Iheme, Britney [facility] [id number] 19:31:51 02:22:00 U 00 2022-06-20 2022-06-21 Outpatient Iheme, Britney [facility]PL MHPL [id number] 19:31:51 02:22:00 U 00 2022-06-20 2022-06-21 Emergency E IHEME, BRITNEY MHBL MHBL [id number] MHBL 19:31:00 02:22:00 2022-04-17 2022-04-17 Emergency [facility] [id number] Univers 16:08:00 19:03:00 JUANA ward [facility] [place] [facility] 2022-04-17 2022-04-17 [facility] [id number] Univers 16:08:00 19:03:00 Ju[address] [facility] [id number] [facility] [id number] [facility] [phone] [place] [id number] Branch 2021-01-04 2021-01-04 Outpatient R NAVIN, [facility] [id number] Univers 13:45:00 13:45:00 MUSA pabon [facility] 2020-12-24 2020-12-24 Office Navin, [facility] [id number] Univers 09:16:09 10:04:56 Visit Musa Ng [employer]ICA [employer] [employer]ER [id number] ity [facility] [id number] [place] as MATERNAL [phone] Med ical & CHILD [address] [facility] [place] [place] 2020-12-24 2020-12-24 Outpatient R AKINDANIELA, [facility] [id number] Univers 09:00:00 09:00:00 MUSA nevarezy o f [facility] 2020-12-24 2020-12-24 Orders Doctor CHRIS [id number] Univers 00:00:00 00:00:00 Only Unassigned, ELLEN [id number] ity of [facility] [id number] [place] as [phone] [address] 2020-11-16 2020-11-16 Patient Rohan [facility] [id number] Univers 00:00:00 00:00:00 Outreach [facility] [id number] i ty [facility] [id number] [place] [phone] Or dic[address] 2020-05-27 2020-05-27 Outpatient R AKINSIPE, [facility] [id number] Univers 08:15:00 08:15:00 MUSA ward o f [facility] 2020-05-27 2020-05-27 [facility] [id number] Univers 08:15:00 08:15:00 MUSA ward o f [facility] 2020-05-27 2020-05-27 Outpatient R [facility] [id number] Univers 07:45:00 07:45:00 ity of [facility] 2020-02-25 2020-02-25 Office [facility], [facility] [id number] Univers 13:05:53 13:56:05 Visit Musa Ng [employer] [id number] ity [facility] [id number] [place] as MATERNAL [phone] [facility] ical & CHILD [address] [place] [address] 2020-02-25 2020-02-25 Outpatient R AKINSIPE, [facility] [id number] Univers 13:15:00 13:15:00 MUSA nevarezy o f [facility] 2020-02-25 2020-02-25 Outpatient R NAVIN [facility] [id number] Univers 13:15:00 13:15:00 MUSA ward o cm [facility] 2020-02-25 2020-02-25 Outpatient R NAVIN [facility] [id number] Univers 13:15:00 13:15:00 MUSA ward o cm [facility] 2020-01-19 2020-01-19 Nurse Visit, Ang-Rmchp Nurse [facility] [id number] Univers 14:11:10 14:26:10 Visit Musa Holden Hernandez [employer] [id number]. 10 ity of [facility] [id number] [place] as MATERNAL [phone] [facility] ical & CHILD [address] [place] [address] 2020-01-19 2020-01-19 [facility]ici [facility] [id number] Univers 08:10:27 11:02:57 ne Visit Musa Hernandez [employer] [id number] ity of [facility] [id number] [place] as MATERNAL [phone] [facility] & [address] 2020-01-19 2020-01-19 Outpatient R NAVIN [facility] [id number] Univers 10:45:00 10:45:00 MUSA pabon [facility] 2020-01-19 2020-01-19 Outpatient R NAVIN [facility] [id number] Univers 10:45:00 10:45:00 MUSA pabon [facility] 2020-01-16 2020-01-16 Orders Doctor CHRIS [id number] Univers 00:00:00 00:00:00 Only Unassigned, ELLEN [id number] [facility] [id number] [place] as [phone] [address] 2019-12-27 2019-12-27 Emergency X FAN [facility] ERT [id number] Univers 10:42:28 13:30:00 MARYBEL ward of [facility] 2019-12-19 2019-12-19 Telephone Pcp, [facility] [id number] Univers 00:00:00 00:00:00 Patient [employer] [id number] it y of Does Not REGIONAL [id number] [place] n[place]son Have A MATERNAL [phone] [facility] ical & CHILD [address] [place] [address] Results Test Description Test Time Test Comments Results Result Comments Source POINT OF CARE 2022-07-02 16:40:00 Test Item Value Reference Range Interpretation Comme nts Glucose POC (test code = Glucose POC) 180 70-99 [facility]2022-10-30 16:40:00 Test Item Value Reference Range Interpretation Comments Gluc POC Comment 1 (test code Notified RN/MD = Gluc POC Comment 1) [facility]2022-10-30 16:40:00 Test Item Value Reference Range Interpretation Comments Glucose POC (test code = Glucose POC) 180 70-99 [facility]2022-10-30 16:40:00 Test Item Value Reference Range Interpretation Comments Gluc POC Comment 1 (test code Notified RN/MD = Gluc POC Comment 1) [facility]COF[facility]CL8350-86-67 10:15:00 Test Item Value Reference Range Interpretation Comments Glucose Lvl (test code = Glucose Lvl) 141 70-99 [facility] CenterKaiscjlYSRSDPJCB8759-41-75 10:15:00 Test Item Value Reference Range Interpretation Comments BUN (test code = BUN) 12 7-22 [facility] CenterUpuekupZCUEAEYJM0323-78-36 10:15:00 Test Item Value Reference Range Interpretation Comments Creatinine Lvl (test code = Creatinine 0.42 0.50-1.40 Lvl) [facility] CenterNytgemhTUBYUBKMT1953-02-04 10:15:00 Test Item Value Reference Range Interpretation Comments Sodium Lvl (test code = Sodium Lvl) 135 135-145 [facility] CenterYdxicaaRYVIJAVXP2471-75-80 10:15:00 Test Item Value Reference Range Interpretation Comments Potassium Lvl (test code = Potassium 4.2 3.5-5.1 Lvl) [facility] CenterRkqeuavROLFMARKS6222-90-20 10:15:00 Test Item Value Reference Range Interpretation Comments Chloride Lvl (test code = Chloride Lvl) 101 95-109 [facility] CenterRfiqkhaFJEGHLBZW4966-36-88 10:15:00 Test Item Value Reference Range Interpretation Comments CO2 (test code = CO2) 30 24-32 [facility] CenterWrcznylFPWHVHKEV3712-41-81 10:15:00 Test Item Value Reference Range Interpretation Comments AGAP (test code = AGAP) 8.2 10.0-20.0 [facility] CenterJggpanlKQZESHAMH8406-76-91 10:15:00 Test Item Value Reference Range Interpretation Comments Calcium Lvl (test code = Calcium Lvl) 8.9 8.5-10.5 [facility] CenterNebqypxTQAGIQOZI6406-20-51 10:15:00 Test Item Value Reference Range Interpretation Comments eGFR (test code = eGFR) 116 [facility] CenterWtxfpyxKVYVGLDOW0294-76-57 10:15:00 Test Item Value Reference Range Interpretation Comments Magnesium Lvl (test code = Magnesium 1.9 1.8-2.4 Lvl) [facility] CenterOqpeqymAQQRFUHSR8383-25-33 10:15:00 Test Item Value Reference Range Interpretation Comments Phosphorus (test code = Phosphorus) 4.2 2.5-4.5 [facility] CenterQrqkjkeJAZLHZUWS9070-10-38 10:15:00 Test Item Value Reference Range Interpretation Comments Ca Ion WB (test code = Ca Ion WB) 1.23 1.05-1.25 [facility] CenterAiojpfxYKRHZWMKX1009-06-84 10:15:00 Test Item Value Reference Range Interpretation Comments Ca Ion at pH 7.4 WB (test code = Ca Ion 1.19 1.05-1.25 at pH 7.4 WB) [facility] [place] [facility] CenterWympllnOQOXULFCVA1144-48-37 10:15:00 Test Item Value Reference Range Interpretation Comments WBC (test code = WBC) 10.9 3.7-10.4 [facility] [place] [facility] CenterMazwnlcHZOHNMNTTP6518-87-83 10:15:00 Test Item Value Reference Range Interpretation Comments RBC (test code = RBC) 2.89 4.20-5.40 [facility] [place] [facility] CenterZcuvgjtAONHNTPEEL6256-51-32 10:15:00 Test Item Value Reference Range Interpretation Comments Hgb (test code = Hgb) 8.2 12.0-16.0 [place] 676052-10-30 10:15:00 Test Item Value Reference Range Interpretation Comments Hct (test code = Hct) 24.5 36.0-48.0 [facility] [place] [facility] CenterHuynflxAWPVGYVXDF5048-52-25 10:15:00 Test Item Value Reference Range Interpretation Comments MCV (test code = MCV) 84.7 80.0-98.0 [facility] [place] [facility] CenterRppkpvkUKQIDDCJIS1579-61-40 10:15:00 Test Item Value Reference Range Interpretation Comments MCH (test code = MCH) 28.4 pg 27.0-31.0 [facility] [place] [facility] CenterPkxvpdiOOGJKKZREJ7334-39-40 10:15:00 Test Item Value Reference Range Interpretation Comments MCHC (test code = MCHC) 33.5 32.0-36.0 [facility] [place] [facility] CenterXcmkvchNRMQHFECHS3546-46-82 10:15:00 Test Item Value Reference Range Interpretation Comments RDW (test code = RDW) 13.5 11.5-14.5 [facility] [place] [facility] CenterLxkqxabXMURVIMSIU8524-21-61 10:15:00 Test Item Value Reference Range Interpretation Comments Platelet (test code = Platelet) 459 133-450 [facility] [place] [facility] CenterAzjogcrTDOYXBOKYW8923-47-58 10:15:00 Test Item Value Reference Range Interpretation Comments MPV (test code = MPV) 8.1 7.4-10.4 [facility] [place] [facility] CenterGzibhdnRPQTFHTRXV0764-65-65 10:15:00 Test Item Value Reference Range Interpretation Comments Segs (test code = Segs) 59.9 45.0-75.0 [facility] [place] [facility] CenterZpthxsnBWUZOJFUPH7701-13-75 10:15:00 Test Item Value Reference Range Interpretation Comments Lymphocytes (test code = Lymphocytes) 31.3 20.0-40.0 [facility] [place] [facility] CenterUufdmwcMVEYZLMJPC2845-80-76 10:15:00 Test Item Value Reference Range Interpretation Comments Monocytes (test code = Monocytes) 4.9 2.0-12.0 [facility] [place] [facility] CenterGayfqqcXVEARCSEJE6284-83-97 10:15:00 Test Item Value Reference Range Interpretation Comments Eosinophils (test code = 3.3 See_Comment [A utomated message] The Eosinophils) system which ge nerated this result tra nsmitted reference range : <=4.0. The reference r kyle was not used to int erpret this result as normal/abnormal . [facility] [place] [facility] CenterOdoxpbnTYLOQFQBEK7393-06-14 10:15:00 Test Item Value Reference Range Interpretation Comments Basophils (test code = 0.6 See_Comment [Aut omated message] The Basophils) system which ge nerated this result tra nsmitted reference range : <=1.0. The reference r kyle was not used to int erpret this result as normal/abnormal . [place] [address]-10-30 10:15:00 Test Item Value Reference Range Interpretation Comments Neutrophils # (test code = Neutrophils 6.5 1.5-8.1 #) [facility] [place] [facility] CenterTwlwluiPTGAONCQIP5272-53-05 10:15:00 Test Item Value Reference Range Interpretation Comments Lymphocytes # (test code = Lymphocytes 3.4 1.0-5.5 #) [facility] [place] [facility] CenterQxvqljlXWVLJFPRSZ5353-91-43 10:15:00 Test Item Value Reference Range Interpretation Comments Monocytes # (test code 0.5 See_Comment [Aut omated message] The = Monocytes #) system which generated this result tra nsmitted reference range : <=0.8. The reference r kyle was not used to int erpret this result as normal/abnormal . [facility] [place] [facility] CenterXylnefpLRFKAHCEWB4694-64-03 10:15:00 Test Item Value Reference Range Interpretation Comments Eosinophils # (test code 0.4 See_Comment [A utomated message] The = Eosinophils #) system whic h generated this result tra nsmitted reference range : <=0.5. The reference r kyle was not used to int erpret this result as normal/abnormal . [facility] [place] [facility] CenterUivbkleOBVFFKWJZZ5610-69-82 10:15:00 Test Item Value Reference Range Interpretation Comments Basophils # (test code 0.1 See_Comment [Aut omated message] The = Basophils #) system which generated this result tra nsmitted reference range : <=0.2. The reference r kyle was not used to int erpret this result as normal/abnormal . [facility]KqheaiuXCPUHDZRO6477-40-70 10:15:00 Test Item Value Reference Range Interpretation Comments Glucose Lvl (test code = Glucose Lvl) 141 70-99 [facility] CenterGtvtgsvCYOBNHYBF3608-88-86 10:15:00 Test Item Value Reference Range Interpretation Comments BUN (test code = BUN) 12 7-22 [facility] CenterUkkthzdSVEGEIYEK5604-74-52 10:15:00 Test Item Value Reference Range Interpretation Comments Creatinine Lvl (test code = Creatinine 0.42 0.50-1.40 Lvl) [facility] CenterRhfrpicWYVIPMCOA4157-59-65 10:15:00 Test Item Value Reference Range Interpretation Comments Sodium Lvl (test code = Sodium Lvl) 135 135-145 [facility] CenterKciyxyoOBBDIPEFV0502-07-66 10:15:00 Test Item Value Reference Range Interpretation Comments Potassium Lvl (test code = Potassium 4.2 3.5-5.1 Lvl) [facility] CenterNecjmzwLVNRYSEFB6190-00-84 10:15:00 Test Item Value Reference Range Interpretation Comments Chloride Lvl (test code = Chloride Lvl) 101 95-109 [facility] CenterNpwqltjRLXRCTRAL7420-74-66 10:15:00 Test Item Value Reference Range Interpretation Comments CO2 (test code = CO2) 30 24-32 [facility] CenterUqztoqzGUSCUJMPW5286-84-25 10:15:00 Test Item Value Reference Range Interpretation Comments AGAP (test code = AGAP) 8.2 10.0-20.0 [facility] CenterZomqwqxJBTJGKRIA4774-60-59 10:15:00 Test Item Value Reference Range Interpretation Comments Calcium Lvl (test code = Calcium Lvl) 8.9 8.5-10.5 [facility] CenterQbunlwcWQICSLSTE5386-75-53 10:15:00 Test Item Value Reference Range Interpretation Comments eGFR (test code = eGFR) 116 [facility] CenterRxrdbwhKJQTULKHH6434-57-38 10:15:00 Test Item Value Reference Range Interpretation Comments Magnesium Lvl (test code = Magnesium 1.9 1.8-2.4 Lvl) [facility] CenterBwpieguCBIWWXZDM9260-19-07 10:15:00 Test Item Value Reference Range Interpretation Comments Phosphorus (test code = Phosphorus) 4.2 2.5-4.5 [facility] CenterLjvigirYZVCIWGXX4271-19-96 10:15:00 Test Item Value Reference Range Interpretation Comments Ca Ion WB (test code = Ca Ion WB) 1.23 1.05-1.25 [facility] CenterXwywwtqQHSYQTCNI5862-24-57 10:15:00 Test Item Value Reference Range Interpretation Comments Ca Ion at pH 7.4 WB (test code = Ca Ion 1.19 1.05-1.25 at pH 7.4 WB) [facility] CenterPfqztrvRDVHACVORK1851-69-34 10:15:00 Test Item Value Reference Range Interpretation Comments WBC (test code = WBC) 10.9 3.7-10.4 [facility] CenterKsrnpiyXQLGNNMQTS8095-01-09 10:15:00 Test Item Value Reference Range Interpretation Comments RBC (test code = RBC) 2.89 4.20-5.40 [facility] CenterOysshyjYNJTMFWIOW6869-59-17 10:15:00 Test Item Value Reference Range Interpretation Comments Hgb (test code = Hgb) 8.2 12.0-16.0 [facility] CenterNxzfobdXYUJEIMTKW6436-66-87 10:15:00 Test Item Value Reference Range Interpretation Comments Hct (test code = Hct) 24.5 36.0-48.0 [facility] CenterUuieomuNAICFOELEJ3342-97-21 10:15:00 Test Item Value Reference Range Interpretation Comments MCV (test code = MCV) 84.7 80.0-98.0 [facility] CenterHtdhvexZQTCABNUXZ9755-78-16 10:15:00 Test Item Value Reference Range Interpretation Comments MCH (test code = MCH) 28.4 pg 27.0-31.0 [facility] CenterLcqhwryMFQAZONHCR9298-99-03 10:15:00 Test Item Value Reference Range Interpretation Comments MCHC (test code = MCHC) 33.5 32.0-36.0 [facility] CenterUlilqmsSHQNBIBFLB3743-19-20 10:15:00 Test Item Value Reference Range Interpretation Comments RDW (test code = RDW) 13.5 11.5-14.5 [facility] CenterLkxpsfzAHIXGTGHAL1293-25-56 10:15:00 Test Item Value Reference Range Interpretation Comments Platelet (test code = Platelet) 459 133-450 [facility] CenterCqfpwueSNOAUSHGRI8847-05-96 10:15:00 Test Item Value Reference Range Interpretation Comments MPV (test code = MPV) 8.1 7.4-10.4 [facility] CenterTvhpboaIWTTRXMCQG0430-73-51 10:15:00 Test Item Value Reference Range Interpretation Comments Segs (test code = Segs) 59.9 45.0-75.0 [facility] CenterLmupfbuAIQHQUTJFV0934-48-50 10:15:00 Test Item Value Reference Range Interpretation Comments Lymphocytes (test code = Lymphocytes) 31.3 20.0-40.0 [place] 676052-10-30 10:15:00 Test Item Value Reference Range Interpretation Comments Monocytes (test code = Monocytes) 4.9 2.0-12.0 [place] 676052-10-30 10:15:00 Test Item Value Reference Range Interpretation Comments Eosinophils (test code = 3.3 See_Comment [A utomated message] The Eosinophils) system which ge nerated this result tra nsmitted reference range : <=4.0. The reference r kyle was not used to int erpret this result as normal/abnormal . [facility] CenterZwdlutdWMLTWBACNF5352-02-82 10:15:00 Test Item Value Reference Range Interpretation Comments Basophils (test code = 0.6 See_Comment [Aut omated message] The Basophils) system which ge nerated this result tra nsmitted reference range : <=1.0. The reference r kyle was not used to int erpret this result as normal/abnormal . [facility] CenterLiavlwqNWRXKBVAFG5059-33-80 10:15:00 Test Item Value Reference Range Interpretation Comments Neutrophils # (test code = Neutrophils 6.5 1.5-8.1 #) [facility] CenterRrirgusHNTRMPSXCN3528-53-76 10:15:00 Test Item Value Reference Range Interpretation Comments Lymphocytes # (test code = Lymphocytes 3.4 1.0-5.5 #) [facility] CenterZsccerpGQRQPMTZTL2905-12-91 10:15:00 Test Item Value Reference Range Interpretation Comments Monocytes # (test code 0.5 See_Comment [Aut omated message] The = Monocytes #) system which generated this result tra nsmitted reference range : <=0.8. The reference r kyle was not used to int erpret this result as normal/abnormal . [facility] CenterTpgtlgyAUTCZCMIEG1249-05-07 10:15:00 Test Item Value Reference Range Interpretation Comments Eosinophils # (test code 0.4 See_Comment [A utomated message] The = Eosinophils #) system whic h generated this result tra nsmitted reference range : <=0.5. The reference r kyle was not used to int erpret this result as normal/abnormal . [facility] CenterIxdkllhOUHAPVHACU6830-32-55 10:15:00 Test Item Value Reference Range Interpretation Comments Basophils # (test code 0.1 See_Comment [Aut omated message] The = Basophils #) system which generated this result tra nsmitted reference range : <=0.2. The reference r kyle was not used to int erpret this result as normal/abnormal . [place] 73326022-10-29 16:38:43 Test Item Value Reference Range Interpretation Comments RADRPT (test code = EXAM: MRI CERVICAL SPINE RADRPT) WITHOUT AND WITH CONTRASTDATE: 06/30/2022INDICATION: - infection.COMPARISON: NoneTECHNIQUE: Multiplanar, multisequence, precontrast and postcontrast MR imaging of the cervical spine.IV contrast: Refer to electrical engineering technologist documentationFINDINGS: Numbering: There are 7 cervical, [...] enhancement.3. Moderate right neural foraminal stenosis C6-C7 [facility]CzueqquOBCYMU5227-39-68 16:38:43 Test Item Value Reference Range Interpretation Comments RADRPT (test code = EXAM: MRI CERVICAL SPINE RADRPT) WITHOUT AND WITH CONTRASTDATE: 06/30/2022INDICATION: - infection.COMPARISON: NoneTECHNIQUE: Multiplanar, multisequence, precontrast and postcontrast MR imaging of the cervical spine.IV contrast: Refer to electrical engineering technologist documentationFINDINGS: Numbering: There are 7 cervical, [...] enhancement.3. Moderate right neural foraminal stenosis C6-C7 [facility]JyegqyjCWWMGY8270-89-45 07:33:51 Test Item Value Reference Range Interpretation [...] examination* Multilevel diffuse degenerative changes are present. [facility]DzmmnwjLVAVVT0814-16-[facility] 07:33:51 Test Item Value Reference Range Interpretation [...] examination* Multilevel diffuse degenerative changes are present. [facility] HospitalVsaocyiYHYMBG6633-04-19 19:34:11 Test Item Value Reference Range Interpretation [...] this portable radiograph. Osseous structures are unchanged. [facility] HospitalUbwsjxhNHFUDD3529-82-17 19:34:11 Test Item Value Reference Range Interpretation [...] this portable radiograph. Osseous structures are unchanged. [facility]burgDhnspoiTBNNSAWRXG8010-27-76 05:23:00 Test Item Value Reference Range Interpretation Comments C-REACTIVE PROTEIN (test code = 22.5 C-REACTIVE PROTEIN) [facility]burgHrmnfqkEXQZAORNHM4624-98-41 05:23:00 Test Item Value Reference Range Interpretation Comments C-REACTIVE PROTEIN (test code = 22.5 C-REACTIVE PROTEIN) [facility]KnsonvwQBPTOBBBMQ0985-90-34 23:15:00 Test Item Value Reference Range Interpretation Comments Sed Rate (test code = 90 See_Comment [Auto mated message] The Sed Rate) system which [employer] nerated this result transmit delaney reference range : <=20. The reference range was not used to interpr et this result as kiarra l/abnormal. [facility] CenterZhayizzQOSLOTELPA1858-18-96 23:15:00 Test Item Value Reference Range Interpretation Comments Sed Rate (test code = 90 See_Comment [Auto mated message] The Sed Rate) system which [employer] nerated this result transmit delaney reference range : <=20. The reference range was not used to interpr et this result as kiarra l/abnormal. [place] 73326022-10-26 14:43:31 Test Item Value Reference Range Interpretation [...] at 06/28/2022 10:15 by Gerald Pop MD [facility] HospitalLejtwnzZEYUIN5441-06-19 14:43:31 Test Item Value Reference Range Interpretation [...] at 06/28/2022 10:15 by Gerald Pop MD [facility] HospitalXzpxksmJJKEIK0666-13-39 14:43:31 Test Item Value Reference Range Interpretation [...] at 06/28/2022 10:15 by Gerald Pop [facility]burgVjcizagDVZWJQ3168-46-01 14:43:31 Test Item Value Reference Range Interpretation [...] at 06/28/2022 10:15 by Gerald Pop MD [facility]2022-10-25 11:00:00 Test Item Value Reference Range Interpretation Comments Gluc POC Comment 2 (test code = Sent to lab Gluc POC Comment 2) [facility]2022-10-25 11:00:00 Test Item Value Reference Range Interpretation Comments Gluc POC Comment 2 (test code = Sent to lab Gluc POC Comment 2) [place] 73326022-10-24 18:45:51 Test Item Value Reference Range Interpretation [...] 1. No abdominal abnormalities.2. Hardware as above. [place] 73326022-10-24 18:45:51 Test Item Value Reference Range Interpretation [...] 1. No abdominal abnormalities.2. Hardware as above. [facility] CenterSwboxuxKPWZXOIRF8851-70-87 16:44:00 Test Item Value Reference Range Interpretation Comments POC V Hct (calc) (test code = POC V Hct 29.0 36.0-48.0 (calc)) [facility] CenterHviqmkqLSVNZWFBX6221-75-65 16:44:00 Test Item Value Reference Range Interpretation Comments POC V Cl (test code = POC V Cl) 100 95-109 [facility] CenterQdllmoeKVOLIIPHP4751-27-95 16:44:00 Test Item Value Reference Range Interpretation Comments POC V Ca Ion at pH 7.4 (test code = POC 1.20 1.05-1.25 V Ca Ion at pH 7.4) [facility] CenterTjneqswUSMHRBLYC7644-08-80 16:44:00 Test Item Value Reference Range Interpretation Comments POC V Source (test code = POC V Source) BRUNA [facility] CenterIlfcbxsWTBSLIGWS9042-49-29 16:44:00 Test Item Value Reference Range Interpretation Comments POC V Temp (test code = POC V Temp) 37.0 [place] 610982-10-24 16:44:00 Test Item Value Reference Range Interpretation Comments POC V Ion Ca (test code = POC V Ion Ca) 1.20 1.05-1.25 [facility] CenterBrqjtvfOZDRSMCTY0769-81-37 16:44:00 Test Item Value Reference Range Interpretation Comments POC V K (test code = POC V K) 4.0 3.5-5.1 [facility] CenterIkxkiqwFDZOMIXQR7158-46-64 16:44:00 Test Item Value Reference Range Interpretation Comments POC V Na (test code = POC V Na) 130 135-145 [facility] CenterXsuunohQLPMYRLRV0222-53-96 16:44:00 Test Item Value Reference Range Interpretation Comments POC V LA (test code = POC V LA) 1.1 0.5-2.2 [facility] CenterZrdyqxiYINPROBMC8789-35-47 16:44:00 Test Item Value Reference Range Interpretation Comments POC V pH (test code = POC V pH) 7.41 1 7.28-7.42 [facility] CenterQgfzeobUPRUYZTZR8646-24-98 16:44:00 Test Item Value Reference Range Interpretation Comments POC V PCO2 (test code = POC V PCO2) 40 38-52 [facility] CenterGkynziaROPPGAABR0670-98-67 16:44:00 Test Item Value Reference Range Interpretation Comments POC V PO2 (test code = POC V PO2) 41 20-49 [facility] CenterPkgtlbgBWPQSLXJB0892-96-71 16:44:00 Test Item Value Reference Range Interpretation Comments POC V HCO3 (test code = POC V HCO3) 25 22-26 [facility] CenterMioksuaTVFTEJERH2524-38-47 16:44:00 Test Item Value Reference Range Interpretation Comments POC V BE (test code = POC V BE) 1 -2-2 [facility] CenterUigrvbyCVYZONYOU3255-08-84 16:44:00 Test Item Value Reference Range Interpretation Comments POC V O2 Sat (calc) (test code = POC V 76.8 40.0-70.0 O2 Sat (calc)) [facility] CenterPipcsfmYZSYRFJUN4710-45-46 16:44:00 Test Item Value Reference Range Interpretation Comments POC V Hgb Tot (test code = POC V Hgb 9.6 12.0-16.0 Tot) [facility] CenterXzynssyMXALSIRLU5779-04-13 16:44:00 Test Item Value Reference Range Interpretation Comments POC V Glu (test code = POC V Glu) 185 70-99 [facility] CenterEkaxiobNWWEHOBDB1471-99-65 16:44:00 Test Item Value Reference Range Interpretation Comments POC V Hct (calc) (test code = POC V Hct 29.0 36.0-48.0 (calc)) [facility] CenterAwjqhegBYEEDJVSO3416-80-65 16:44:00 Test Item Value Reference Range Interpretation Comments POC V Cl (test code = POC V Cl) 100 95-109 [facility] CenterRilhjpzDAVWXJMJH0384-10-31 16:44:00 Test Item Value Reference Range Interpretation Comments POC V Ca Ion at pH 7.4 (test code = POC 1.20 1.05-1.25 V Ca Ion at pH 7.4) [facility] CenterWzjvrwwUSTDOTEHX8132-48-01 16:44:00 Test Item Value Reference Range Interpretation Comments POC V Source (test code = POC V Source) BRUNA [facility] CenterWcnkkwvHUPOLCMIQ4288-33-30 16:44:00 Test Item Value Reference Range Interpretation Comments POC V Temp (test code = POC V Temp) 37.0 [facility] CenterEkekwssIVPQZMZOW9741-39-27 16:44:00 Test Item Value Reference Range Interpretation Comments POC V Ion Ca (test code = POC V Ion Ca) 1.20 1.05-1.25 [facility] CenterYsywkckWEBHICYBA2405-73-05 16:44:00 Test Item Value Reference Range Interpretation Comments POC V K (test code = POC V K) 4.0 3.5-5.1 [facility] CenterCqwglubEJZUJYLOQ9179-35-60 16:44:00 Test Item Value Reference Range Interpretation Comments POC V Na (test code = POC V Na) 130 135-145 [facility] CenterKhgtlbcIIKKIFEHD3337-70-77 16:44:00 Test Item Value Reference Range Interpretation Comments POC V LA (test code = POC V LA) 1.1 0.5-2.2 [facility] CenterRghswhlEWOCYPBNN6775-93-87 16:44:00 Test Item Value Reference Range Interpretation Comments POC V pH (test code = POC V pH) 7.41 1 7.28-7.42 [facility] CenterLnwaywoWAURBQVNP4998-23-46 16:44:00 Test Item Value Reference Range Interpretation Comments POC V PCO2 (test code = POC V PCO2) 40 38-52 [facility] CenterAgukevsMZGFISEBW2710-33-67 16:44:00 Test Item Value Reference Range Interpretation Comments POC V PO2 (test code = POC V PO2) 41 20-49 [facility] CenterBwkfzhrHADNGPAPB5536-25-61 16:44:00 Test Item Value Reference Range Interpretation Comments POC V HCO3 (test code = POC V HCO3) 25 22-26 [facility] CenterFuhrkwpCNBDDSNWP1988-78-54 16:44:00 Test Item Value Reference Range Interpretation Comments POC V BE (test code = POC V BE) 1 -2-2 [facility] CenterYobpxlsLMUPPDMST0253-84-79 16:44:00 Test Item Value Reference Range Interpretation Comments POC V O2 Sat (calc) (test code = POC V 76.8 40.0-70.0 O2 Sat (calc)) [facility] CenterMxaktdmGXIQFUGTT2063-30-42 16:44:00 Test Item Value Reference Range Interpretation Comments POC V Hgb Tot (test code = POC V Hgb 9.6 12.0-16.0 Tot) [facility] CenterCumzvduBQFFHCGNL9790-79-80 16:44:00 Test Item Value Reference Range Interpretation Comments POC V Glu (test code = POC V Glu) 185 70-99 [facility] CenterCakmhkeFXLBYBFEV2022-12-43 09:27:00 Test Item Value Reference Range Interpretation Comments Vancomycin AUC (test code = Vancomycin 13.5 AUC) [facility] CenterOjtstbzYXMEVRWMT0709-58-56 09:27:00 Test Item Value Reference Range Interpretation Comments Vancomycin AUC (test code = Vancomycin 13.5 AUC) [facility] CenterPqmlaamGKWZGGYIEV0964-29-44 03:00:00 Test Item Value Reference Range Interpretation Comments Hgb (test code = Hgb) 7.6 12.0-16.0 [facility] CenterVjbwcrjVTOEPKKPSV0493-24-30 03:00:00 Test Item Value Reference Range Interpretation Comments Hct (test code = Hct) 23.1 36.0-48.0 [facility] CenterWuwpiwfCENCOJQTCE8485-79-48 03:00:00 Test Item Value Reference Range Interpretation Comments Hgb (test code = Hgb) 7.6 12.0-16.0 [facility] CenterKheufrgXQWTEFRRPG3856-24-23 03:00:00 Test Item Value Reference Range Interpretation Comments Hct (test code = Hct) 23.1 36.0-48.0 [facility]: Yrvvy4482-56-59 15:20:00 Test Item Value Reference Range Interpretation Comments Culture: Blood (test code No Growth At 5 Days = Culture: Blood) [facility] Odsqt0712-57-49 15:20:00 Test Item Value Reference Range Interpretation Comments Culture: Blood (test code No Growth At 5 Days = Culture: Blood) [facility] MTUUN6668-29-69 09:39:00 Test Item Value Reference Range Interpretation Comments Glucose Lvl (test code = Glucose Lvl) 150 70-99 [facility]2022-10-23 09:39:00 Test Item Value Reference Range Interpretation Comments BUN (test code = BUN) 9 03-24 [facility]2022-10-23 09:39:00 Test Item Value Reference Range Interpretation Comments Creatinine Lvl (test code = Creatinine 0.42 0.50-1.40 Lvl) [facility]2022-10-23 09:39:00 Test Item Value Reference Range Interpretation Comments Sodium Lvl (test code = Sodium Lvl) 134 135-145 [place] 172312-10-23 09:39:00 Test Item Value Reference Range Interpretation Comments Glucose Lvl (test code = Glucose Lvl) 150 70-99 [facility]2022-10-23 09:39:00 Test Item Value Reference Range Interpretation Comments BUN (test code = BUN) 9 03-24 [facility]2022-10-23 09:39:00 Test Item Value Reference Range Interpretation Comments Creatinine Lvl (test code = Creatinine 0.42 0.50-1.40 Lvl) [facility]2022-10-23 09:39:00 Test Item Value Reference Range Interpretation Comments Potassium Lvl (test code = Potassium 3.3 3.5-5.1 Lvl) [facility]2022-10-23 09:39:00 Test Item Value Reference Range Interpretation Comments Sodium Lvl (test code = Sodium Lvl) 134 135-145 [place] 172312-10-23 09:39:00 Test Item Value Reference Range Interpretation Comments Potassium Lvl (test code = Potassium 3.3 3.5-5.1 Lvl) [facility]2022-10-23 09:39:00 Test Item Value Reference Range Interpretation Comments Chloride Lvl (test code = Chloride Lvl) 102 95-109 [facility]2022-10-23 09:39:00 Test Item Value Reference Range Interpretation Comments CO2 (test code = CO2) 25 24-32 [place] 172312-10-23 09:39:00 Test Item Value Reference Range Interpretation Comments Calcium Lvl (test code = Calcium Lvl) 8.7 8.5-10.5 [place] 172312-10-23 09:39:00 Test Item Value Reference Range Interpretation Comments AGAP (test code = AGAP) 10.3 10.0-20.0 [address]10-23 09:39:00 Test Item Value Reference Range Interpretation Comments eGFR (test code = eGFR) 116 [place] [address]-10-23 09:39:00 Test Item Value Reference Range Interpretation Comments Magnesium Lvl (test code = Magnesium 1.9 1.8-2.4 Lvl) [place] [address]-10-23 09:39:00 Test Item Value Reference Range Interpretation Comments Phosphorus (test code = Phosphorus) 2.6 2.5-4.5 [place] [address]-10-23 09:39:00 Test Item Value Reference Range Interpretation Comments Segs (test code = Segs) 68.1 45.0-75.0 [address]10-23 09:39:00 Test Item Value Reference Range Interpretation Comments Chloride Lvl (test code = Chloride Lvl) 102 95-109 [place] [address]-10-23 09:39:00 Test Item Value Reference Range Interpretation Comments Lymphocytes (test code = Lymphocytes) 20.4 20.0-40.0 [address]10-23 09:39:00 Test Item Value Reference Range Interpretation Comments Monocytes (test code = Monocytes) 6.7 2.0-12.0 [place] [address]-10-23 09:39:00 Test Item Value Reference Range Interpretation Comments Eosinophils (test code = 4.1 See_Comment [A utomated message] The Eosinophils) system which ge nerated this result tra nsmitted reference range : <=4.0. The reference r kyle was not used to int erpret this result as normal/abnormal . [place] [address]-10-23 09:39:00 Test Item Value Reference Range Interpretation Comments Basophils (test code = 0.7 See_Comment [Aut omated message] The Basophils) system which ge nerated this result tra nsmitted reference range : <=1.0. The reference r kyle was not used to int erpret this result as normal/abnormal . [place] [address]-10-23 09:39:00 Test Item Value Reference Range Interpretation Comments Neutrophils # (test code = Neutrophils 6.7 1.5-8.1 #) [place] 676052-10-23 09:39:00 Test Item Value Reference Range Interpretation Comments Lymphocytes # (test code = Lymphocytes 2.0 1.0-5.5 #) [place] 676052-10-23 09:39:00 Test Item Value Reference Range Interpretation Comments Monocytes # (test code 0.7 See_Comment [Aut omated message] The = Monocytes #) system which generated this result tra nsmitted reference range : <=0.8. The reference r kyle was not used to int erpret this result as normal/abnormal . [place] [address]-10-23 09:39:00 Test Item Value Reference Range Interpretation Comments Eosinophils # (test code 0.4 See_Comment [A utomated message] The = Eosinophils #) system whic h generated this result tra nsmitted reference range : <=0.5. The reference r kyle was not used to int erpret this result as normal/abnormal . [facility] CenterTwvlyebXMOHOOFFRZ5440-31-15 09:39:00 Test Item Value Reference Range Interpretation Comments Basophils # (test code 0.1 See_Comment [Aut omated message] The = Basophils #) system which generated this result tra nsmitted reference range : <=0.2. The reference r kyle was not used to int erpret this result as normal/abnormal . [facility] CenterPgmcrtxOTHZQQWVPI9976-65-92 09:39:00 Test Item Value Reference Range Interpretation Comments WBC (test code = WBC) 9.9 3.7-10.4 [facility]2022-10-23 09:39:00 Test Item Value Reference Range Interpretation Comments CO2 (test code = CO2) 25 24-32 [place] [address]-10-23 09:39:00 Test Item Value Reference Range Interpretation Comments RBC (test code = RBC) 3.05 4.20-5.40 [place] [address]-10-23 09:39:00 Test Item Value Reference Range Interpretation Comments Hgb (test code = Hgb) 8.5 12.0-16.0 [place] [address]-10-23 09:39:00 Test Item Value Reference Range Interpretation Comments Hct (test code = Hct) 25.6 36.0-48.0 [place] [address]-10-23 09:39:00 Test Item Value Reference Range Interpretation Comments MCV (test code = MCV) 83.9 80.0-98.0 [facility] [facility] C[id number] 09:39:00 Test Item Value Reference Range Interpretation Comments MCH (test code = MCH) 27.9 pg 27.0-31.0 [facility] CenterFmqkiukNHXFSDNBOB9143-43-07 09:39:00 Test Item Value Reference Range Interpretation Comments MCHC (test code = MCHC) 33.2 32.0-36.0 [facility] CenterVfomtkuQFYOXLYWJV3457-60-83 09:39:00 Test Item Value Reference Range Interpretation Comments RDW (test code = RDW) 12.6 11.5-14.5 [facility] CenterQxlmbylGUMJHRZVBU6387-67-19 09:39:00 Test Item Value Reference Range Interpretation Comments Platelet (test code = Platelet) 358 133-450 [facility] CenterLdnxeejXPGZETNCSZ2708-46-78 09:39:00 Test Item Value Reference Range Interpretation Comments MPV (test code = MPV) 8.1 7.4-10.[address] [facility]2022-10-23 09:39:00 Test Item Value Reference Range Interpretation Comments Ca Ion WB (test code = Ca Ion WB) 1.11 1.05-1.25 [facility]2022-10-23 09:39:00 Test Item Value Reference Range Interpretation Comments Calcium Lvl (test code = Calcium Lvl) 8.7 8.5-10.[address] [facility]2022-10-23 09:39:00 Test Item Value Reference Range Interpretation Comments Ca Ion at pH 7.4 WB (test code = Ca Ion 1.13 1.05-1.25 at pH 7.4 WB) [facility]2022-10-23 09:39:00 Test Item Value Reference Range Interpretation Comments AGAP (test code = AGAP) 10.3 10.0-20.0 [facility]2022-10-23 09:39:00 Test Item Value Reference Range Interpretation Comments eGFR (test code = eGFR) 116 [facility]2022-10-23 09:39:00 Test Item Value Reference Range Interpretation Comments Magnesium Lvl (test code = Magnesium 1.9 1.8-2.4 Lvl) [address]10-23 09:39:00 Test Item Value Reference Range Interpretation Comments Phosphorus (test code = Phosphorus) 2.6 2.5-4.5 [place] [address]-10-23 09:39:00 Test Item Value Reference Range Interpretation Comments Segs (test code = Segs) 68.1 45.0-75.0 [place] [address]-10-23 09:39:00 Test Item Value Reference Range Interpretation Comments Lymphocytes (test code = Lymphocytes) 20.4 20.0-40.0 [place] [address]-10-23 09:39:00 Test Item Value Reference Range Interpretation Comments Monocytes (test code = Monocytes) 6.7 2.0-12.0 [place] [address]-10-23 09:39:00 Test Item Value Reference Range Interpretation Comments Eosinophils (test code = 4.1 See_Comment [A utomated message] The Eosinophils) system which ge nerated this result tra nsmitted reference range : <=4.0. The reference r kyle was not used to int erpret this result as normal/abnormal . [place] [address]-10-23 09:39:00 Test Item Value Reference Range Interpretation Comments Basophils (test code = 0.7 See_Comment [Aut omated message] The Basophils) system which ge nerated this result tra nsmitted reference range : <=1.0. The reference r kyle was not used to int erpret this result as normal/abnormal . [place] [address]-10-23 09:39:00 Test Item Value Reference Range Interpretation Comments Neutrophils # (test code = Neutrophils 6.7 1.5-8.1 #) [place] [address]-10-23 09:39:00 Test Item Value Reference Range Interpretation Comments Lymphocytes # (test code = Lymphocytes 2.0 1.0-5.5 #) [place] [address]-10-23 09:39:00 Test Item Value Reference Range Interpretation Comments Monocytes # (test code 0.7 See_Comment [Aut omated message] The = Monocytes #) system which generated this result tra nsmitted reference range : <=0.8. The reference r kyle was not used to int erpret this result as normal/abnormal . [place] [address]-10-23 09:39:00 Test Item Value Reference Range Interpretation Comments Eosinophils # (test code 0.4 See_Comment [A utomated message] The = Eosinophils #) system whic h generated this result tra nsmitted reference range : <=0.5. The reference r kyle was not used to int erpret this result as normal/abnormal . [facility] CenterVtwqrlcXVZSUOTFIF6465-30-84 09:39:00 Test Item Value Reference Range Interpretation Comments Basophils # (test code 0.1 See_Comment [Aut omated message] The = Basophils #) system which generated this result tra nsmitted reference range : <=0.2. The reference r kyle was not used to int erpret this result as normal/abnormal . [facility] CenterDugyhlsELWZKXGVEF0436-15-33 09:39:00 Test Item Value Reference Range Interpretation Comments WBC (test code = WBC) 9.9 3.7-10.4 [facility] CenterVtzbdvpRYXPZQUCTO5223-63-69 09:39:00 Test Item Value Reference Range Interpretation Comments RBC (test code = RBC) 3.05 4.20-5.40 [facility] CenterIelqhbaIPBZUHHZNN1574-98-26 09:39:00 Test Item Value Reference Range Interpretation Comments Hgb (test code = Hgb) 8.5 12.0-16.0 [facility] CenterBaokybnAJCHHFUQOA0420-00-18 09:39:00 Test Item Value Reference Range Interpretation Comments Hct (test code = Hct) 25.6 36.0-48.0 [facility] CenterUxxvhdoHAZZRUXSUI2131-45-53 09:39:00 Test Item Value Reference Range Interpretation Comments MCV (test code = MCV) 83.9 80.0-98.0 [facility] CenterCupqiblTRYAITBUJL5805-47-34 09:39:00 Test Item Value Reference Range Interpretation Comments MCH (test code = MCH) 27.9 pg 27.0-31.0 [facility] CenterUczvatmVRPYZASBFX9090-08-26 09:39:00 Test Item Value Reference Range Interpretation Comments MCHC (test code = MCHC) 33.2 32.0-36.0 [facility] CenterOjeardpXFIMTRYIJQ3318-11-04 09:39:00 Test Item Value Reference Range Interpretation Comments RDW (test code = RDW) 12.6 11.5-14.5 [facility] CenterHzovakbIANYDFZTGT9750-69-71 09:39:00 Test Item Value Reference Range Interpretation Comments Platelet (test code = Platelet) 358 133-450 [place] 676052-10-23 09:39:00 Test Item Value Reference Range Interpretation Comments MPV (test code = MPV) 8.1 7.4-10.[address] [facility]2022-10-23 09:39:00 Test Item Value Reference Range Interpretation Comments Ca Ion WB (test code = Ca Ion WB) 1.11 1.05-1.25 [place] 534192-10-23 09:39:00 Test Item Value Reference Range Interpretation Comments Ca Ion at pH 7.4 WB (test code = Ca Ion 1.13 1.05-1.25 at pH 7.4 WB) [place] 676052-10-23 04:10:00 Test Item Value Reference Range Interpretation Comments Hgb (test code = Hgb) 9.1 12.0-16.0 [place] [address]-10-23 04:10:00 Test Item Value Reference Range Interpretation Comments Hct (test code = Hct) 27.1 36.0-48.0 [place] [address]-10-23 04:10:00 Test Item Value Reference Range Interpretation Comments Hgb (test code = Hgb) 9.1 12.0-16.0 [place] [address]-10-23 04:10:00 Test Item Value Reference Range Interpretation Comments Hct (test code = Hct) 27.1 36.0-48.0 [facility]2022-10-22 08:53:00 Test Item Value Reference Range Interpretation Comments Glucose Lvl (test code = Glucose Lvl) 93 70-99 [place] 172312-10-22 08:53:00 Test Item Value Reference Range Interpretation Comments BUN (test code = BUN) 12 7-22 [place] 172312-10-22 08:53:00 Test Item Value Reference Range Interpretation Comments Creatinine Lvl (test code = Creatinine 0.36 0.50-1.40 Lvl) [place] 172312-10-22 08:53:00 Test Item Value Reference Range Interpretation Comments Sodium Lvl (test code = Sodium Lvl) 137 135-145 [place] 172312-10-22 08:53:00 Test Item Value Reference Range Interpretation Comments Potassium Lvl (test code = Potassium 3.4 3.5-5.1 Lvl) [place] 172312-10-22 08:53:00 Test Item Value Reference Range Interpretation Comments Chloride Lvl (test code = Chloride Lvl) 105 95-109 [place] 172312-10-22 08:53:00 Test Item Value Reference Range Interpretation Comments CO2 (test code = CO2) 22 24-32 [place] 172312-10-22 08:53:00 Test Item Value Reference Range Interpretation Comments Calcium Lvl (test code = Calcium Lvl) 8.4 8.5-10.5 [place] 172312-10-22 08:53:00 Test Item Value Reference Range Interpretation Comments AGAP (test code = AGAP) 13.4 10.0-20.0 [place] 172312-10-22 08:53:00 Test Item Value Reference Range Interpretation Comments eGFR (test code = eGFR) 120 [place] 172312-10-22 08:53:00 Test Item Value Reference Range Interpretation Comments Magnesium Lvl (test code = Magnesium 2.0 1.8-2.4 Lvl) [place] 172312-10-22 08:53:00 Test Item Value Reference Range Interpretation Comments Phosphorus (test code = Phosphorus) 2.9 2.5-4.5 [place] 676052-10-22 08:53:00 Test Item Value Reference Range Interpretation Comments Segs (test code = Segs) 65.7 45.0-75.0 [place] 676052-10-22 08:53:00 Test Item Value Reference Range Interpretation Comments Lymphocytes (test code = Lymphocytes) 25.5 20.0-40.0 [place] [address]-10-22 08:53:00 Test Item Value Reference Range Interpretation Comments Monocytes (test code = Monocytes) 5.3 2.0-12.0 [place] [address]-10-22 08:53:00 Test Item Value Reference Range Interpretation Comments Eosinophils (test code = 3.1 See_Comment [A utomated message] The Eosinophils) system which ge nerated this result tra nsmitted reference range : <=4.0. The reference r kyle was not used to int erpret this result as normal/abnormal . [place] 676052-10-22 08:53:00 Test Item Value Reference Range Interpretation Comments Basophils (test code = 0.4 See_Comment [Aut omated message] The Basophils) system which ge nerated this result tra nsmitted reference range : <=1.0. The reference r kyle was not used to int erpret this result as normal/abnormal . [place] 676052-10-22 08:53:00 Test Item Value Reference Range Interpretation Comments Neutrophils # (test code = Neutrophils 7.1 1.5-8.1 #) [place] 676052-10-22 08:53:00 Test Item Value Reference Range Interpretation Comments Lymphocytes # (test code = Lymphocytes 2.8 1.0-5.5 #) [place] 676052-10-22 08:53:00 Test Item Value Reference Range Interpretation Comments Monocytes # (test code 0.6 See_Comment [Aut omated message] The = Monocytes #) system which generated this result tra nsmitted reference range : <=0.8. The reference r kyle was not used to int erpret this result as normal/abnormal . [place] 676052-10-22 08:53:00 Test Item Value Reference Range Interpretation Comments Eosinophils # (test code 0.3 See_Comment [A utomated message] The = Eosinophils #) system whic h generated this result tra nsmitted reference range : <=0.5. The reference r kyle was not used to int erpret this result as normal/abnormal . [place] 676052-10-22 08:53:00 Test Item Value Reference Range Interpretation Comments WBC (test code = WBC) 10.8 3.7-10.4 [place] [address]-10-22 08:53:00 Test Item Value Reference Range Interpretation Comments RBC (test code = RBC) 2.80 4.20-5.40 [place] [address]-10-22 08:53:00 Test Item Value Reference Range Interpretation Comments MCV (test code = MCV) 84.6 80.0-98.0 [place] [address]-10-22 08:53:00 Test Item Value Reference Range Interpretation Comments MCH (test code = MCH) 28.1 pg 27.0-31.0 [place] 676052-10-22 08:53:00 Test Item Value Reference Range Interpretation Comments MCHC (test code = MCHC) 33.2 32.0-36.0 [place] 676052-10-22 08:53:00 Test Item Value Reference Range Interpretation Comments RDW (test code = RDW) 12.6 11.5-14.5 [place] 676052-10-22 08:53:00 Test Item Value Reference Range Interpretation Comments Platelet (test code = Platelet) 330 133-450 [facility] CenterJkczckmETLQSGGZRO2226-11-17 08:53:00 Test Item Value Reference Range Interpretation Comments MPV (test code = MPV) 8.1 7.4-10.4 [facility] [id number] 08:53:00 Test Item Value Reference Range Interpretation Comments Ca Ion WB (test code = Ca Ion WB) 1.17 1.05-1.[address] [facility]2022-10-22 08:53:00 Test Item Value Reference Range Interpretation Comments Ca Ion at pH 7.4 WB (test code = Ca Ion 1.17 1.05-1.25 at pH 7.4 WB) [facility]OjhkfnfQUKQBHGXKJ4352-82-04 08:53:00 Test Item Value Reference Range Interpretation Comments Vancomycin AUC (test code = Vancomycin 16.5 AUC) [facility]2022-10-22 08:53:00 Test Item Value Reference Range Interpretation Comments Glucose Lvl (test code = Glucose Lvl) 93 70-99 [facility]2022-10-22 08:53:00 Test Item Value Reference Range Interpretation Comments BUN (test code = BUN) 12 -22 [place] 172312-10-22 08:53:00 Test Item Value Reference Range Interpretation Comments Creatinine Lvl (test code = Creatinine 0.36 0.50-1.40 Lvl) [facility]2022-10-22 08:53:00 Test Item Value Reference Range Interpretation Comments Sodium Lvl (test code = Sodium Lvl) 137 135-145 [facility]2022-10-22 08:53:00 Test Item Value Reference Range Interpretation Comments Potassium Lvl (test code = Potassium 3.4 3.5-5.1 Lvl) [facility]2022-10-22 08:53:00 Test Item Value Reference Range Interpretation Comments Chloride Lvl (test code = Chloride Lvl) 105 95-109 [place] 172312-10-22 08:53:00 Test Item Value Reference Range Interpretation Comments CO2 (test code = CO2) 22 24-32 [place] 172312-10-22 08:53:00 Test Item Value Reference Range Interpretation Comments Calcium Lvl (test code = Calcium Lvl) 8.4 8.5-10.5 [place] 172312-10-22 08:53:00 Test Item Value Reference Range Interpretation Comments AGAP (test code = AGAP) 13.4 10.0-20.0 [place] 172312-10-22 08:53:00 Test Item Value Reference Range Interpretation Comments eGFR (test code = eGFR) 120 [place] 172312-10-22 08:53:00 Test Item Value Reference Range Interpretation Comments Magnesium Lvl (test code = Magnesium 2.0 1.8-2.4 Lvl) [place] 172312-10-22 08:53:00 Test Item Value Reference Range Interpretation Comments Phosphorus (test code = Phosphorus) 2.9 2.5-4.5 [place] [address]-10-22 08:53:00 Test Item Value Reference Range Interpretation Comments Segs (test code = Segs) 65.7 45.0-75.0 [place] [address]-10-22 08:53:00 Test Item Value Reference Range Interpretation Comments Lymphocytes (test code = Lymphocytes) 25.5 20.0-40.0 [place] 676052-10-22 08:53:00 Test Item Value Reference Range Interpretation Comments Monocytes (test code = Monocytes) 5.3 2.0-12.0 [place] [address]-10-22 08:53:00 Test Item Value Reference Range Interpretation Comments Eosinophils (test code = 3.1 See_Comment [A utomated message] The Eosinophils) system which ge nerated this result tra nsmitted reference range : <=4.0. The reference r kyle was not used to int erpret this result as normal/abnormal . [place] 676052-10-22 08:53:00 Test Item Value Reference Range Interpretation Comments Basophils (test code = 0.4 See_Comment [Aut omated message] The Basophils) system which ge nerated this result tra nsmitted reference range : <=1.0. The reference r kyle was not used to int erpret this result as normal/abnormal . [place] 676052-10-22 08:53:00 Test Item Value Reference Range Interpretation Comments Neutrophils # (test code = Neutrophils 7.1 1.5-8.1 #) [place] 676052-10-22 08:53:00 Test Item Value Reference Range Interpretation Comments Lymphocytes # (test code = Lymphocytes 2.8 1.0-5.5 #) [place] [address]-10-22 08:53:00 Test Item Value Reference Range Interpretation Comments Monocytes # (test code 0.6 See_Comment [Aut omated message] The = Monocytes #) system which generated this result tra nsmitted reference range : <=0.8. The reference r kyle was not used to int erpret this result as normal/abnormal . [place] 676052-10-22 08:53:00 Test Item Value Reference Range Interpretation Comments Eosinophils # (test code 0.3 See_Comment [A utomated message] The = Eosinophils #) system whic h generated this result tra nsmitted reference range : <=0.5. The reference r kyle was not used to int erpret this result as normal/abnormal . [facility] CenterSkanfljCFMDPFQNJH6329-56-60 08:53:00 Test Item Value Reference Range Interpretation Comments WBC (test code = WBC) 10.8 3.7-10.4 [place] 676052-10-22 08:53:00 Test Item Value Reference Range Interpretation Comments RBC (test code = RBC) 2.80 4.20-5.40 [place] [address]-10-22 08:53:00 Test Item Value Reference Range Interpretation Comments MCV (test code = MCV) 84.6 80.0-98.0 [place] 676052-10-22 08:53:00 Test Item Value Reference Range Interpretation Comments MCH (test code = MCH) 28.1 pg 27.0-31.0 [place] 676052-10-22 08:53:00 Test Item Value Reference Range Interpretation Comments MCHC (test code = MCHC) 33.2 32.0-36.0 [place] [address]-10-22 08:53:00 Test Item Value Reference Range Interpretation Comments RDW (test code = RDW) 12.6 11.5-14.5 [facility] CenterIggtynyCEQNBAEOIV4655-64-68 08:53:00 Test Item Value Reference Range Interpretation Comments Platelet (test code = Platelet) 330 133-450 [facility] CenterDthmnyxNYWJGWVJQU2933-37-73 08:53:00 Test Item Value Reference Range Interpretation Comments MPV (test code = MPV) 8.1 7.4-10.[address] [facility]2022-10-22 08:53:00 Test Item Value Reference Range Interpretation Comments Ca Ion WB (test code = Ca Ion WB) 1.17 1.05-1.[address] [facility]2022-10-22 08:53:00 Test Item Value Reference Range Interpretation Comments Ca Ion at pH 7.4 WB (test code = Ca Ion 1.17 1.05-1.25 at pH 7.4 WB) [facility]AmemihsUVRKOCHYOI9092-78-52 08:53:00 Test Item Value Reference Range Interpretation Comments Vancomycin AUC (test code = Vancomycin 16.5 AUC) [facility]: [id number] 04:19:00 Test Item Value Reference Range Interpretation Comments Culture: Urine (test code No Growth; Holding = Culture: Urine) [facility]: [id number] 04:19:00 Test Item Value Reference Range Interpretation Comments Culture: Urine (test code = No Growth Culture: Urine) [facility]: [id number] 04:19:00 Test Item Value Reference Range Interpretation Comments Culture: Urine (test code No Growth; Holding = Culture: Urine) [facility]: [id number] 04:19:00 Test Item Value Reference Range Interpretation Comments Culture: Urine (test code = No Growth Culture: Urine) [facility]2022-10-21 23:09:00 Test Item Value Reference Range Interpretation Comments Vitamin B12 Lvl (test code = Vitamin 276 B12 Lvl) [facility]2022-10-21 23:09:00 Test Item Value Reference Range Interpretation Comments Folate Lvl (test code = Folate Lvl) 3.7 [facility]2022-10-21 23:09:00 Test Item Value Reference Range Interpretation Comments Ferritin Lvl (test code = Ferritin Lvl) 108 5-204 [place] 368912-10-21 23:09:00 Test Item Value Reference Range Interpretation Comments Iron (test code = Iron) 26 [place] 368912-10-21 23:09:00 Test Item Value Reference Range Interpretation Comments TIBC (test code = TIBC) 198 [place] 368912-10-21 23:09:00 Test Item Value Reference Range Interpretation Comments % Satur Fe (test code = % Satur Fe) 13 [facility]2022-10-21 23:09:00 Test Item Value Reference Range Interpretation Comments Glucose Lvl (test code = Glucose Lvl) 98 70-99 [place] 172312-10-21 23:09:00 Test Item Value Reference Range Interpretation Comments BUN (test code = BUN) 12 7-22 [place] 172312-10-21 23:09:00 Test Item Value Reference Range Interpretation Comments Creatinine Lvl (test code = Creatinine 0.39 0.50-1.40 Lvl) [place] 172312-10-21 23:09:00 Test Item Value Reference Range Interpretation Comments Sodium Lvl (test code = Sodium Lvl) 134 135-145 [place] 172312-10-21 23:09:00 Test Item Value Reference Range Interpretation Comments Potassium Lvl (test code = Potassium 3.5 3.5-5.1 Lvl) [place] 172312-10-21 23:09:00 Test Item Value Reference Range Interpretation Comments Chloride Lvl (test code = Chloride Lvl) 102 95-109 [place] 172312-10-21 23:09:00 Test Item Value Reference Range Interpretation Comments CO2 (test code = CO2) 23 24-32 [place] 172312-10-21 23:09:00 Test Item Value Reference Range Interpretation Comments AGAP (test code = AGAP) 12.5 10.0-20.0 [place] 172312-10-21 23:09:00 Test Item Value Reference Range Interpretation Comments Calcium Lvl (test code = Calcium Lvl) 9.2 8.5-10.5 [place] 172312-10-21 23:09:00 Test Item Value Reference Range Interpretation Comments eGFR (test code = eGFR) 118 [place] 172312-10-21 23:09:00 Test Item Value Reference Range Interpretation Comments Magnesium Lvl (test code = Magnesium 2.0 1.8-2.4 Lvl) [place] [address]-10-21 23:09:00 Test Item Value Reference Range Interpretation Comments Phosphorus (test code = Phosphorus) 2.5 2.5-4.5 [place] 172312-10-21 23:09:00 Test Item Value Reference Range Interpretation Comments Total Protein (test code = Total 6.5 6.4-8.4 Protein) [place] 172312-10-21 23:09:00 Test Item Value Reference Range Interpretation Comments Albumin Lvl (test code = Albumin Lvl) 2.2 3.5-5.0 [place] [address]-10-21 23:09:00 Test Item Value Reference Range Interpretation Comments Globulin (test code = Globulin) 4.3 2.7-4.2 [place] 172312-10-21 23:09:00 Test Item Value Reference Range Interpretation Comments A/G Ratio (test code = A/G Ratio) 0.5 1 0.7-1.6 [place] [address]-10-21 23:09:00 Test Item Value Reference Range Interpretation Comments ALT (test code = ALT) 10 See_Comment [Auto mated message] The system which ge nerated this result transmit delaney reference range : <=65. The reference range was not used to interpr et this result as kiarra l/abnormal. [place] [address]-10-21 23:09:00 Test Item Value Reference Range Interpretation Comments AST (test code = AST) 8 See_Comment [Auto mated message] The system which ge nerated this result transmit delaney reference range : <=37. The reference range was not used to interpr et this result as kiarra l/abnormal. [place] [address]-10-21 23:09:00 Test Item Value Reference Range Interpretation Comments Alk Phos (test code = Alk Phos) 105 39-136 [place] 172312-10-21 23:09:00 Test Item Value Reference Range Interpretation Comments Bili Total (test code = Bili Total) 0.3 0.2-1.3 [facility] [employer] [id number] 23:09:00 Test Item Value Reference Range Interpretation Comments Bili Direct (test code no gt See_Comment [Aut omated message] The = Bili Direct) system which generated this result tra nsmitted reference range : <=0.3. The reference r kyle was not used to int erpret this result as kiarra l/abnormal. [facility] [id number] 23:09:00 Test Item Value Reference Range Interpretation Comments Bili Indirect Unable to See_Comment [Automated (test code = Bili Calculate message] T he system Indirect) which generated this result transmitted reference range : <=1.0. The reference range was not used to interpret this result as normal/abnormal . [facility] CenterJuovpxhXHLKVPNPT3761-45-79 23:09:00 Test Item Value Reference Range Interpretation Comments Total Protein (test code = Total 6.5 6.4-8.4 Protein) [facility] CenterAbyhdcqGNPXCQHXE2687-61-03 23:09:00 Test Item Value Reference Range Interpretation Comments Albumin Lvl (test code = Albumin Lvl) 2.2 3.5-5.0 [facility] CenterAlmkbdoUJOLJZLDC4917-18-60 23:09:00 Test Item Value Reference Range Interpretation Comments Globulin (test code = Globulin) 4.3 2.7-4.2 [facility] CenterNunicwaKDOUEJQHA0997-93-64 23:09:00 Test Item Value Reference Range Interpretation Comments A/G Ratio (test code = A/G Ratio) 0.5 1 0.7-1.6 [facility] CenterAlcnemtOZTFFWYBR3787-72-52 23:09:00 Test Item Value Reference Range Interpretation Comments ALT (test code = ALT) 10 See_Comment [Auto mated message] The system which ge nerated this result transmit delaney reference range : <=65. The reference range was not used to interpr et this result as kiarra l/abnormal. [facility] XtkdddmDXVCPFDOA6869-27-17 23:09:00 Test Item Value Reference Range Interpretation Comments AST (test code = AST) 8 See_Comment [Auto mated message] The system which ge nerated this result transmit delaney reference range : <=37. The reference range was not used to interpr et this result as kiarra l/abnormal. [facility] JfnlwxiYCSGXQTCF8786-25-62 23:09:00 Test Item Value Reference Range Interpretation Comments Alk Phos (test code = Alk Phos) 105 39-136 [facility]HbgepmsVPOHFDRLX5863-77-97 23:09:00 Test Item Value Reference Range Interpretation Comments Bili Total (test code = Bili Total) 0.3 0.2-1.3 [facility] CenterZhnculfJUZKDFSMG1387-41-72 23:09:00 Test Item Value Reference Range Interpretation Comments Bili Direct (test code no gt See_Comment [Aut omated message] The = Bili Direct) system which generated this result tra nsmitted reference range : <=0.3. The reference r kyle was not used to int erpret this result as kiarra l/abnormal. [facility] CenterGjrithcBLEAYHMYW3795-69-82 23:09:00 Test Item Value Reference Range Interpretation Comments Bili Indirect Unable to See_Comment [Automated (test code = Bili Calculate message] T he system Indirect) which generated this result transmitted reference range : <=1.0. The reference range was not used to interpret this result as normal/abnormal . [facility] CenterUvdzgqlZKNLBSPKO5377-87-58 23:09:00 Test Item Value Reference Range Interpretation Comments Vitamin B12 Lvl (test code = Vitamin 906 227-1515 B12 Lvl) [facility] CenterDxivcxzJBHYOKUFQ8595-79-19 23:09:00 Test Item Value Reference Range Interpretation Comments Folate Lvl (test code = Folate Lvl) 3.7 [facility] CenterDexnzvaFBMAHEXMT2698-97-89 23:09:00 Test Item Value Reference Range Interpretation Comments Ferritin Lvl (test code = Ferritin Lvl) 108 5-204 [facility] CenterZlmqfkxFCDEWNLMO9600-79-03 23:09:00 Test Item Value Reference Range Interpretation Comments Iron (test code = Iron) 26 45-160 [facility] CenterDriklibPAMBIMJXM9709-20-09 23:09:00 Test Item Value Reference Range Interpretation Comments TIBC (test code = TIBC) 198 250-450 [facility] CenterPsfwfekABWSVBVLI8130-70-38 23:09:00 Test Item Value Reference Range Interpretation Comments % Satur Fe (test code = % Satur Fe) 13 16-45 [facility] CenterSlayupwXRULXDJYYG3470-92-59 23:09:00 Test Item Value Reference Range Interpretation Comments Segs (test code = Segs) 68.9 45.0-75.0 [facility] CenterNfwtydjGDZVDUGFQH2247-49-63 23:09:00 Test Item Value Reference Range Interpretation Comments Lymphocytes (test code = Lymphocytes) 22.4 20.0-40.0 [place] 676052-10-21 23:09:00 Test Item Value Reference Range Interpretation Comments Monocytes (test code = Monocytes) 5.7 2.0-12.0 [place] 676052-10-21 23:09:00 Test Item Value Reference Range Interpretation Comments Eosinophils (test code = 2.6 See_Comment [A utomated message] The Eosinophils) system which ge nerated this result tra nsmitted reference range : <=4.0. The reference r kyle was not used to int erpret this result as normal/abnormal . [place] 676052-10-21 23:09:00 Test Item Value Reference Range Interpretation Comments Basophils (test code = 0.4 See_Comment [Aut omated message] The Basophils) system which ge nerated this result tra nsmitted reference range : <=1.0. The reference r kyle was not used to int erpret this result as normal/abnormal . [facility] CenterRmvvpdfMRFXYDDERP7231-54-35 23:09:00 Test Item Value Reference Range Interpretation Comments Neutrophils # (test code = Neutrophils 8.7 1.5-8.1 #) [place] 676052-10-21 23:09:00 Test Item Value Reference Range Interpretation Comments Lymphocytes # (test code = Lymphocytes 2.8 1.0-5.5 #) [place] 676052-10-21 23:09:00 Test Item Value Reference Range Interpretation Comments Monocytes # (test code 0.7 See_Comment [Aut omated message] The = Monocytes #) system which generated this result tra nsmitted reference range : <=0.8. The reference r kyle was not used to int erpret this result as normal/abnormal . [place] 676052-10-21 23:09:00 Test Item Value Reference Range Interpretation Comments Eosinophils # (test code 0.3 See_Comment [A utomated message] The = Eosinophils #) system whic h generated this result tra nsmitted reference range : <=0.5. The reference r kyle was not used to int erpret this result as normal/abnormal . [place] 676052-10-21 23:09:00 Test Item Value Reference Range Interpretation Comments WBC (test code = WBC) 12.6 3.7-10.4 [facility]PzhigxbFFGJQHHPCD8060-99-48 23:09:00 Test Item Value Reference Range Interpretation Comments RBC (test code = RBC) 3.13 4.20-5.40 [facility] HospitalAhunrhzKFROIJZKUA6006-88-96 23:09:00 Test Item Value Reference Range Interpretation Comments MCV (test code = MCV) 85.6 80.0-98.0 [facility] HospitalRwuuytgBRLPNWLGKZ5512-59-59 23:09:00 Test Item Value Reference Range Interpretation Comments MCH (test code = MCH) 27.2 pg 27.0-31.0 [facility] HospitalEwrmaqaQDPYZCXLBM9064-97-67 23:09:00 Test Item Value Reference Range Interpretation Comments MCHC (test code = MCHC) 31.8 32.0-36.0 [facility] HospitalTsvtznaWQKXARPXDE3129-24-75 23:09:00 Test Item Value Reference Range Interpretation Comments RDW (test code = RDW) 12.4 11.5-14.5 [facility] HospitalQrlsxzsBEJRPKSGYW2357-18-92 23:09:00 Test Item Value Reference Range Interpretation Comments Platelet (test code = Platelet) 373 133-450 [facility] CenterMqnovquJYPLEKUKRH2573-32-34 23:09:00 Test Item Value Reference Range Interpretation Comments MPV (test code = MPV) 8.2 7.4-10.4 [facility]IM[facility]:SUSC:PT:ISOLATE:ORDQN:[id number] 23:09:00 Test Item Value Reference Range Interpretation Comments Culture: Blood Aerobic Bottle: (test code = Staphylococcus epidermidis Culture: Blood) . Critical Results Called To: Gabe NORMAN At: 06/25/2022 06:39 Called By: YAKOV Read Back Ok . Critical Results Called To: DR. LOZOYA AND Paolo CHRISTIAN RN At: 06/25/2022 07:20 Called By: ELIAS Read Back Ok [facility]annIMIPENEM:SUSC:PT:ISOLATE:ORDQN:[id number] 23:09:00 Test Item Value Reference Range Interpretation Comments Staphylococcus Staphylococcus epidermidis (test code epidermidis = Staphylococcus epidermidis) [facility]burgMxlmqerIFVHEYYDRD1583-20-53 23:09:00 Test Item Value Reference Range Interpretation Comments HIV Ag/Ab 4th Gen Negative *NA*(06/23/22 (test code = HIV 6:09 PM) Ag/Ab 4th Gen) [facility]VnfubjpUZMYWGDUDJ5779-44-88 23:09:00 Test Item Value Reference Range Interpretation Comments RPR (test code = RPR) Non Reactive (06/23/22 6:09 PM) [facility]viewJldegcdIGQFVRBRVO4838-17-69 23:09:00 Test Item Value Reference Range Interpretation Comments Hep A IgM (test code = Hep A NON-REACTIVE IgM) [facility] LongviewApsyhgzKWIFLUTUUX6042-15-36 23:09:00 Test Item Value Reference Range Interpretation Comments Hep Bs Ag (test code = Hep Bs NON-REACTIVE Ag) [facility]burgLjocdvtPAWPDHWYSF5745-91-27 23:09:00 Test Item Value Reference Range Interpretation Comments Hep B Core IgM (test code = Hep NON-REACTIVE B Core IgM) [facility]viewPxesrxfVNRHVQTKAV6342-48-49 23:09:00 Test Item Value Reference Range Interpretation Comments Hep C Ab (test code = Hep C Ab) NON-REACTIVE [facility]viewEgzumxxBKXVVFFBGJ6871-38-32 23:09:00 Test Item Value Reference Range Interpretation Comments Hep Signal to Cut-Off (test code = Hep 0.07 1 Signal to Cut-Off) [facility] LongviewGulpoqmQVIITENIXG3606-74-71 23:09:00 Test Item Value Reference Range Interpretation Comments HIV Ag/Ab 4th Gen Negative *NA*(06/23/22 (test code = HIV 6:09 PM) Ag/Ab 4th Gen) [facility]viewMypuipuKEKEDEUPAH6638-91-19 23:09:00 Test Item Value Reference Range Interpretation Comments RPR (test code = RPR) Non Reactive (06/23/22 6:09 PM) [facility]burg[facility]: Avttc7637-14-02 23:09:00 Test Item Value Reference Range Interpretation Comments Culture: Blood Anaerobic Bottle: (test code = Staphylococcus epidermidis Culture: Blood) , Refer To Culture # [phone] for call notification. [facility]2022-10-21 23:09:00 Test Item Value Reference Range Interpretation Comments Vitamin B12 Lvl (test code = Vitamin 276 B12 Lvl) [facility]2022-10-21 23:09:00 Test Item Value Reference Range Interpretation Comments Folate Lvl (test code = Folate Lvl) 3.7 [facility]2022-10-21 23:09:00 Test Item Value Reference Range Interpretation Comments Ferritin Lvl (test code = Ferritin Lvl) 108 5-204 [facility]2022-10-21 23:09:00 Test Item Value Reference Range Interpretation Comments Iron (test code = Iron) 26 [facility]2022-10-21 23:09:00 Test Item Value Reference Range Interpretation Comments TIBC (test code = TIBC) 198 [place] 368912-10-21 23:09:00 Test Item Value Reference Range Interpretation Comments % Satur Fe (test code = % Satur Fe) 13 [facility]2022-10-21 23:09:00 Test Item Value Reference Range Interpretation Comments Glucose Lvl (test code = Glucose Lvl) 98 70-99 [facility]2022-10-21 23:09:00 Test Item Value Reference Range Interpretation Comments BUN (test code = BUN) 12 7-22 [facility]2022-10-21 23:09:00 Test Item Value Reference Range Interpretation Comments Creatinine Lvl (test code = Creatinine 0.39 0.50-1.40 Lvl) [facility]2022-10-21 23:09:00 Test Item Value Reference Range Interpretation Comments Sodium Lvl (test code = Sodium Lvl) 134 135-145 [facility]2022-10-21 23:09:00 Test Item Value Reference Range Interpretation Comments Potassium Lvl (test code = Potassium 3.5 3.5-5.1 Lvl) [facility]2022-10-21 23:09:00 Test Item Value Reference Range Interpretation Comments Chloride Lvl (test code = Chloride Lvl) 102 95-109 [place] 172312-10-21 23:09:00 Test Item Value Reference Range Interpretation Comments CO2 (test code = CO2) 23 24-32 [facility]2022-10-21 23:09:00 Test Item Value Reference Range Interpretation Comments AGAP (test code = AGAP) 12.5 10.0-20.0 [place] 172312-10-21 23:09:00 Test Item Value Reference Range Interpretation Comments Calcium Lvl (test code = Calcium Lvl) 9.2 8.5-10.5 [place] 172312-10-21 23:09:00 Test Item Value Reference Range Interpretation Comments eGFR (test code = eGFR) 118 [place] [address]-10-21 23:09:00 Test Item Value Reference Range Interpretation Comments Magnesium Lvl (test code = Magnesium 2.0 1.8-2.4 Lvl) [place] [address]-10-21 23:09:00 Test Item Value Reference Range Interpretation Comments Phosphorus (test code = Phosphorus) 2.5 2.5-4.5 [place] [address]-10-21 23:09:00 Test Item Value Reference Range Interpretation Comments Total Protein (test code = Total 6.5 6.4-8.4 Protein) [place] [address]-10-21 23:09:00 Test Item Value Reference Range Interpretation Comments Albumin Lvl (test code = Albumin Lvl) 2.2 3.5-5.0 [place] [address]-10-21 23:09:00 Test Item Value Reference Range Interpretation Comments Globulin (test code = Globulin) 4.3 2.7-4.2 [place] [address]-10-21 23:09:00 Test Item Value Reference Range Interpretation Comments A/G Ratio (test code = A/G Ratio) 0.5 1 0.7-1.6 [place] [address]-10-21 23:09:00 Test Item Value Reference Range Interpretation Comments ALT (test code = ALT) 10 See_Comment [Auto mated message] The system which ge nerated this result transmit delaney reference range : <=65. The reference range was not used to interpr et this result as kiarra l/abnormal. [place] 172312-10-21 23:09:00 Test Item Value Reference Range Interpretation Comments AST (test code = AST) 8 See_Comment [Auto mated message] The system which ge nerated this result transmit delaney reference range : <=37. The reference range was not used to interpr et this result as kiarra l/abnormal. [place] [address]-10-21 23:09:00 Test Item Value Reference Range Interpretation Comments Alk Phos (test code = Alk Phos) 105 39-136 [place] 172312-10-21 23:09:00 Test Item Value Reference Range Interpretation Comments Bili Total (test code = Bili Total) 0.3 0.2-1.3 [facility] [employer] [id number] 23:09:00 Test Item Value Reference Range Interpretation Comments Bili Direct (test code no gt See_Comment [Aut omated message] The = Bili Direct) system which generated this result tra nsmitted reference range : <=0.3. The reference r kyle was not used to int erpret this result as kiarra l/abnormal. [facility] [employer] [id number] 23:09:00 Test Item Value Reference Range Interpretation Comments Bili Indirect Unable to See_Comment [Automated (test code = Bili Calculate message] T he system Indirect) which generated this result transmitted reference range : <=1.0. The reference range was not used to interpret this result as normal/abnormal . [facility] JcegvbyQYIJDXMDJ9719-05-36 23:09:00 Test Item Value Reference Range Interpretation Comments Total Protein (test code = Total 6.5 6.4-8.4 Protein) [facility] CenterJrwsodkTEDDVSZWF7268-23-63 23:09:00 Test Item Value Reference Range Interpretation Comments Albumin Lvl (test code = Albumin Lvl) 2.2 3.5-5.0 [facility] NdbisldIWPWZOIYR5001-93-43 23:09:00 Test Item Value Reference Range Interpretation Comments Globulin (test code = Globulin) 4.3 2.7-4.2 [facility] PznzxdzZTPSHNOHJ5981-21-94 23:09:00 Test Item Value Reference Range Interpretation Comments A/G Ratio (test code = A/G Ratio) 0.5 1 0.7-1.6 [facility] CenterEeymrcfVGIJKDXZW1007-51-90 23:09:00 Test Item Value Reference Range Interpretation Comments ALT (test code = ALT) 10 See_Comment [Auto mated message] The system which ge nerated this result transmit delaney reference range : <=65. The reference range was not used to interpr et this result as kiarra l/abnormal. [facility] EriqhbcBGDDAHCWZ9927-32-02 23:09:00 Test Item Value Reference Range Interpretation Comments AST (test code = AST) 8 See_Comment [Auto mated message] The system which ge nerated this result transmit delaney reference range : <=37. The reference range was not used to interpr et this result as kiarra l/abnormal. [facility] CenterImttaqmLANWQGGEH9609-77-47 23:09:00 Test Item Value Reference Range Interpretation Comments Alk Phos (test code = Alk Phos) 105 39-136 [facility] CenterQxingnmGSQVHBPNE9513-96-20 23:09:00 Test Item Value Reference Range Interpretation Comments Bili Total (test code = Bili Total) 0.3 0.2-1.3 [facility] CenterKqpskkiXUHCOUBWQ1955-22-41 23:09:00 Test Item Value Reference Range Interpretation Comments Bili Direct (test code no gt See_Comment [Aut omated message] The = Bili Direct) system which generated this result tra nsmitted reference range : <=0.3. The reference r kyle was not used to int erpret this result as kiarra l/abnormal. [facility] CenterNzxalfiQHASLQRSI6134-00-37 23:09:00 Test Item Value Reference Range Interpretation Comments Bili Indirect Unable to See_Comment [Automated (test code = Bili Calculate message] T he system Indirect) which generated this result transmitted reference range : <=1.0. The reference range was not used to interpret this result as normal/abnormal . [facility] CenterTcsesnpAZRHCKOUJ5078-53-28 23:09:00 Test Item Value Reference Range Interpretation Comments Vitamin B12 Lvl (test code = Vitamin [phone] B12 Lvl) [facility] CenterQncrtfyBOFDTAHQU1230-79-62 23:09:00 Test Item Value Reference Range Interpretation Comments Folate Lvl (test code = Folate Lvl) 3.7 [facility] CenterWanjwnrBRXXBDOSP7777-23-47 23:09:00 Test Item Value Reference Range Interpretation Comments Ferritin Lvl (test code = Ferritin Lvl) 108 5-204 [facility] CenterTncaaifVXETTAGQV7252-50-86 23:09:00 Test Item Value Reference Range Interpretation Comments Iron (test code = Iron) 26 45-160 [facility] CenterHeuzvqxAZEVQVYAS3425-69-77 23:09:00 Test Item Value Reference Range Interpretation Comments TIBC (test code = TIBC) 198 250-450 [facility] CenterUghwyayDZBSQSLWR2240-72-98 23:09:00 Test Item Value Reference Range Interpretation Comments % Satur Fe (test code = % Satur Fe) 13 16-45 [facility] CenterOncwdmbFSKCMFXTAA1977-45-25 23:09:00 Test Item Value Reference Range Interpretation Comments Segs (test code = Segs) 68.9 45.0-75.0 [facility] CenterLnehascPZFNVOXMGM1185-10-04 23:09:00 Test Item Value Reference Range Interpretation Comments Lymphocytes (test code = Lymphocytes) 22.4 20.0-40.0 [facility] CenterJiyviqcJLAPZLPMJZ9774-45-57 23:09:00 Test Item Value Reference Range Interpretation Comments Monocytes (test code = Monocytes) 5.7 2.0-12.0 [facility] CenterDfxbhifQKSUHCAZKO5796-43-30 23:09:00 Test Item Value Reference Range Interpretation Comments Eosinophils (test code = 2.6 See_Comment [A utomated message] The Eosinophils) system which ge nerated this result tra nsmitted reference range : <=4.0. The reference r kyle was not used to int erpret this result as normal/abnormal . [facility] CenterLdstsdsBNLEQXFXDX2817-58-36 23:09:00 Test Item Value Reference Range Interpretation Comments Basophils (test code = 0.4 See_Comment [Aut omated message] The Basophils) system which ge nerated this result tra nsmitted reference range : <=1.0. The reference r kyle was not used to int erpret this result as normal/abnormal . [facility] CenterDeuyzjgVIOJNQUPHN9261-32-96 23:09:00 Test Item Value Reference Range Interpretation Comments Neutrophils # (test code = Neutrophils 8.7 1.5-8.1 #) [facility] CenterHkiblbeRCNAJDZQOC8681-41-94 23:09:00 Test Item Value Reference Range Interpretation Comments Lymphocytes # (test code = Lymphocytes 2.8 1.0-5.5 #) [facility] CenterAafjhxrXUOMLZZOEG3520-87-48 23:09:00 Test Item Value Reference Range Interpretation Comments Monocytes # (test code 0.7 See_Comment [Aut omated message] The = Monocytes #) system which generated this result tra nsmitted reference range : <=0.8. The reference r kyle was not used to int erpret this result as normal/abnormal . [facility] CenterXdfrnffIZOKZVUNIC1309-08-06 23:09:00 Test Item Value Reference Range Interpretation Comments Eosinophils # (test code 0.3 See_Comment [A utomated message] The = Eosinophils #) system whic h generated this result tra nsmitted reference range : <=0.5. The reference r kyle was not used to int erpret this result as normal/abnormal . [place] 676052-10-21 23:09:00 Test Item Value Reference Range Interpretation Comments WBC (test code = WBC) 12.6 3.7-10.4 [facility] CenterFcbkhqeATKIPJUSXB2023-03-49 23:09:00 Test Item Value Reference Range Interpretation Comments RBC (test code = RBC) 3.13 4.20-5.40 [facility] CenterOwdobjzRVGLLHZMAO5394-32-58 23:09:00 Test Item Value Reference Range Interpretation Comments MCV (test code = MCV) 85.6 80.0-98.0 [facility] CenterRluotztCQNXMXUDHO0031-81-55 23:09:00 Test Item Value Reference Range Interpretation Comments MCH (test code = MCH) 27.2 pg 27.0-31.0 [facility] CenterFatzrteECKHAWYQMJ7967-36-78 23:09:00 Test Item Value Reference Range Interpretation Comments MCHC (test code = MCHC) 31.8 32.0-36.0 [facility] CenterPzenvsoDGSFUMBPIO8235-07-71 23:09:00 Test Item Value Reference Range Interpretation Comments RDW (test code = RDW) 12.4 11.5-14.5 [facility] HospitalYzvwnjjINBNKXDIIL3315-48-37 23:09:00 Test Item Value Reference Range Interpretation Comments Platelet (test code = Platelet) 373 133-450 [facility] CenterHuwdlrkGHFMCYMLNC2037-32-01 23:09:00 Test Item Value Reference Range Interpretation Comments MPV (test code = MPV) 8.2 7.4-10.4 [facility]burgIMIPENEM:SUSC:PT:ISOLATE:ORDQN:[id number] 23:09:00 Test Item Value Reference Range Interpretation Comments Culture: Blood Aerobic Bottle: (test code = Staphylococcus epidermidis Culture: Blood) . Critical Results Called To: Gabe CHONG At: 06/25/2022 06:39 Called By: YAKOV Read Back Ok . Critical Results Called To: DR. LOZOYA AND Paolo CHRISTIAN RN At: 06/25/2022 07:20 Called By: ELIAS Read Back Ok [facility]burgIMIPENEM:SUSC:PT:ISOLATE:ORDQN:[id number] 23:09:00 Test Item Value Reference Range Interpretation Comments Staphylococcus Staphylococcus epidermidis (test code epidermidis = Staphylococcus epidermidis) [facility]inburgSdvrzzgOLFTWROLCY5901-42-70 23:09:00 Test Item Value Reference Range Interpretation Comments HIV Ag/Ab 4th Gen Negative *NA*(06/23/22 (test code = HIV 6:09 PM) Ag/Ab 4th Gen) [facility]viewQbetcieXDBGNVKNUL1765-19-10 23:09:00 Test Item Value Reference Range Interpretation Comments RPR (test code = RPR) Non Reactive (06/23/22 6:09 PM) [facility] LongviewXecofinRWKZDJFILX2645-92-49 23:09:00 Test Item Value Reference Range Interpretation Comments Hep A IgM (test code = Hep A NON-REACTIVE IgM) [facility] LongviewLjlebauMTYQHUBCCY6999-68-93 23:09:00 Test Item Value Reference Range Interpretation Comments Hep Bs Ag (test code = Hep Bs NON-REACTIVE Ag) [facility] LongviewLxwtovnVMFUDEICJX9001-49-64 23:09:00 Test Item Value Reference Range Interpretation Comments Hep B Core IgM (test code = Hep NON-REACTIVE B Core IgM) [facility] LongviewEcnvcpbCBEHLGINMG7980-03-01 23:09:00 Test Item Value Reference Range Interpretation Comments Hep C Ab (test code = Hep C Ab) NON-REACTIVE [facility] LongviewGivaddkYLOZBGCBQZ4592-22-21 23:09:00 Test Item Value Reference Range Interpretation Comments Hep Signal to Cut-Off (test code = Hep 0.07 1 Signal to Cut-Off) [facility] LongviewLtlcbrmQPDBRSJVHZ1204-34-85 23:09:00 Test Item Value Reference Range Interpretation Comments HIV Ag/Ab 4th Gen Negative *NA*(06/23/22 (test code = HIV 6:09 PM) Ag/Ab 4th Gen) [facility] LongviewDnqdnhzNZDUJCMLDS5159-16-20 23:09:00 Test Item Value Reference Range Interpretation Comments RPR (test code = RPR) Non Reactive (06/23/22 6:09 PM) [facility]: Ymfye1179-29-59 23:09:00 Test Item Value Reference Range Interpretation Comments Culture: Blood Anaerobic Bottle: (test code = Staphylococcus epidermidis Culture: Blood) , Refer To Culture # [phone] for call notification. [facility] LongviewImnzhnuGSZVERIIFP4133-46-74 21:40:00 Test Item Value Reference Range Interpretation Comments Coronavirus (COVID-19) Not Detected NORMAN (test code = (06/23/22 4:40 PM) Coronavirus (COVID-19) NORMAN) [address]10-21 21:40:00 Test Item Value Reference Range Interpretation Comments Coronavirus (COVID-19) Not Detected NORMAN (test code = (06/23/22 4:40 PM) Coronavirus (COVID-19) NORMAN) [employer] AND IOUWE8108-67-12 21:40:00 Test Item Value Reference Range Interpretation Comments UA Color (test code = Yellow *NA*(06/23/22 UA Color) 4:40 PM) [facility] [id number] 21:40:00 Test Item Value Reference Range Interpretation Comments UA Turbidity (test code Slight *ABN*(06/23/22 = UA Turbidity) 4:40 PM) [facility] [id number] 21:40:00 Test Item Value Reference Range Interpretation Comments UA Spec Grav (test code = UA Spec 1.018 1 Grav) [facility] AND [id number] 21:40:00 Test Item Value Reference Range Interpretation Comments UA pH (test code = UA pH) 7.0 1 5.0-8.0 [facility] [id number] 21:40:00 Test Item Value Reference Range Interpretation Comments UA Protein (test code = UA Negative mg/dL Protein) [facility] [id number] 21:40:00 Test Item Value Reference Range Interpretation Comments UA Glucose (test code = UA Negative mg/dL Glucose) [facility] AND [id number] 21:40:00 Test Item Value Reference Range Interpretation Comments UA Ketones (test code = UA Ketones) 20 mg/dL [facility] AND [id number] 21:40:00 Test Item Value Reference Range Interpretation Comments UA Bili (test code = Negative *NA*(06/23/22 UA Bili) 4:40 PM) [facility] [id number] 21:40:00 Test Item Value Reference Range Interpretation Comments UA Blood (test code = Negative (06/23/22 4:40 UA Blood) PM) [facility] [id number] 21:40:00 Test Item Value Reference Range Interpretation Comments UA Urobilinogen (test code = UA no gt 0.1-1.0 Urobilinogen) [facility] [id number] 21:40:00 Test Item Value Reference Range Interpretation Comments UA Nitrite (test code Negative (06/23/22 4:40 = UA Nitrite) PM) [facility] [id number] 21:40:00 Test Item Value Reference Range Interpretation Comments UA Leuk Est (test code Small *ABN*(06/23/22 = UA Leuk Est) 4:40 PM) [facility] [id number] 21:40:00 Test Item Value Reference Range Interpretation Comments UA Sq Epi (test code = UA Sq Epi) Many /LPF [facility] [id number] 21:40:00 Test Item Value Reference Range Interpretation Comments UA WBC (test code = 26 See_Comment [Automa delaney message] The UA WBC) system which ge nerated this result transmit delaney reference range : <=5. The reference range was not used to interpr et this result as kiarra l/abnormal. [facility] [id number] 21:40:00 Test Item Value Reference Range Interpretation Comments UA RBC (test code = 5 See_Comment [Automa delaney message] The UA RBC) system which ge nerated this result transmit delaney reference range : <=2. The reference range was not used to interpr et this result as kiarra l/abnormal. [facility] [id number] 21:40:00 Test Item Value Reference Range Interpretation Comments UA Color (test code = Yellow *NA*(06/23/22 UA Color) 4:40 PM) [facility] [id number] 21:40:00 Test Item Value Reference Range Interpretation Comments UA Turbidity (test code Slight *ABN*(06/23/22 = UA Turbidity) 4:40 PM) [facility] [id number] 21:40:00 Test Item Value Reference Range Interpretation Comments UA Spec Grav (test code = UA Spec 1.018 1 Grav) [facility] [id number] 21:40:00 Test Item Value Reference Range Interpretation Comments UA pH (test code = UA pH) 7.0 1 5.0-8.0 [facility] [id number] 21:40:00 Test Item Value Reference Range Interpretation Comments UA Protein (test code = UA Negative mg/dL Protein) [facility] [id number] 21:40:00 Test Item Value Reference Range Interpretation Comments UA Glucose (test code = UA Negative mg/dL Glucose) [facility] AND [id number] 21:40:00 Test Item Value Reference Range Interpretation Comments UA Ketones (test code = UA Ketones) 20 mg/dL [facility] AND [id number] 21:40:00 Test Item Value Reference Range Interpretation Comments UA Bili (test code = Negative *NA*(06/23/22 UA Bili) 4:40 PM) [facility] AND [id number] 21:40:00 Test Item Value Reference Range Interpretation Comments UA Blood (test code = Negative (06/23/22 4:40 UA Blood) PM) [facility] AND [id number] 21:40:00 Test Item Value Reference Range Interpretation Comments UA Urobilinogen (test code = UA no gt 0.1-1.0 Urobilinogen) [facility] AND [id number] 21:40:00 Test Item Value Reference Range Interpretation Comments UA Nitrite (test code Negative (06/23/22 4:40 = UA Nitrite) PM) [facility] AND [id number] 21:40:00 Test Item Value Reference Range Interpretation Comments UA Leuk Est (test code Small *ABN*(06/23/22 = UA Leuk Est) 4:40 PM) [facility] AND [id number] 21:40:00 Test Item Value Reference Range Interpretation Comments UA Sq Epi (test code = UA Sq Epi) Many /LPF [facility] AND [id number] 21:40:00 Test Item Value Reference Range Interpretation Comments UA WBC (test code = 26 See_Comment [Automa delaney message] The UA WBC) system which ge nerated this result transmit delaney reference range : <=5. The reference range was not used to interpr et this result as kiarra l/abnormal. [facility] AND [id number] 21:40:00 Test Item Value Reference Range Interpretation Comments UA RBC (test code = 5 See_Comment [Automa delaney message] The UA RBC) system which ge nerated this result transmit delaney reference range : <=2. The reference range was not used to interpr et this result as kiarra l/abnormal. [id number] 21:40:00 Test Item Value Reference Range Interpretation Comments Coronavirus (COVID-19) Not Detected NORMAN (test code = (06/23/22 4:40 PM) Coronavirus (COVID-19) NORMAN) [id number] 21:40:00 Test Item Value Reference Range Interpretation Comments Coronavirus (COVID-19) Not Detected NORMAN (test code = (06/23/22 4:40 PM) Coronavirus (COVID-19) NORMAN) [facility] AND [id number] 21:40:00 Test Item Value Reference Range Interpretation Comments UA Color (test code = Yellow *NA*(06/23/22 UA Color) 4:40 PM) [facility] AND [id number] 21:40:00 Test Item Value Reference Range Interpretation Comments UA Turbidity (test code Slight *ABN*(06/23/22 = UA Turbidity) 4:40 PM) [facility] AND [id number] 21:40:00 Test Item Value Reference Range Interpretation Comments UA Spec Grav (test code = UA Spec 1.018 1 Grav) [facility] AND [id number] 21:40:00 Test Item Value Reference Range Interpretation Comments UA pH (test code = UA pH) 7.0 1 5.0-8.0 [facility] AND [id number] 21:40:00 Test Item Value Reference Range Interpretation Comments UA Protein (test code = UA Negative mg/dL Protein) [facility] AND [id number] 21:40:00 Test Item Value Reference Range Interpretation Comments UA Glucose (test code = UA Negative mg/dL Glucose) [facility] AND [id number] 21:40:00 Test Item Value Reference Range Interpretation Comments UA Ketones (test code = UA Ketones) 20 mg/dL [facility] AND [id number] 21:40:00 Test Item Value Reference Range Interpretation Comments UA Bili (test code = Negative *NA*(06/23/22 UA Bili) 4:40 PM) [facility] AND [id number] 21:40:00 Test Item Value Reference Range Interpretation Comments UA Blood (test code = Negative (06/23/22 4:40 UA Blood) PM) [facility] [id number] 21:40:00 Test Item Value Reference Range Interpretation Comments UA Urobilinogen (test code = UA no gt 0.1-1.0 Urobilinogen) [facility] [id number] 21:40:00 Test Item Value Reference Range Interpretation Comments UA Nitrite (test code Negative (06/23/22 4:40 = UA Nitrite) PM) [facility] [id number] 21:40:00 Test Item Value Reference Range Interpretation Comments UA Leuk Est (test code Small *ABN*(06/23/22 = UA Leuk Est) 4:40 PM) [facility] [id number] 21:40:00 Test Item Value Reference Range Interpretation Comments UA Sq Epi (test code = UA Sq Epi) Many /LPF [facility] [id number] 21:40:00 Test Item Value Reference Range Interpretation Comments UA WBC (test code = 26 See_Comment [Automa delaney message] The UA WBC) system which ge nerated this result transmit delaney reference range : <=5. The reference range was not used to interpr et this result as kiarra l/abnormal. [facility] [id number] 21:40:00 Test Item Value Reference Range Interpretation Comments UA RBC (test code = 5 See_Comment [Automa delaney message] The UA RBC) system which ge nerated this result transmit delaney reference range : <=2. The reference range was not used to interpr et this result as kiarra l/abnormal. [facility] [id number] 21:40:00 Test Item Value Reference Range Interpretation Comments UA Color (test code = Yellow *NA*(06/23/22 UA Color) 4:40 PM) [facility] [id number] 21:40:00 Test Item Value Reference Range Interpretation Comments UA Turbidity (test code Slight *ABN*(06/23/22 = UA Turbidity) 4:40 PM) [facility] [id number] 21:40:00 Test Item Value Reference Range Interpretation Comments UA Spec Grav (test code = UA Spec 1.018 1 Grav) [facility] [id number] 21:40:00 Test Item Value Reference Range Interpretation Comments UA pH (test code = UA pH) 7.0 1 5.0-8.0 [facility] AND [id number] 21:40:00 Test Item Value Reference Range Interpretation Comments UA Protein (test code = UA Negative mg/dL Protein) [facility] AND [id number] 21:40:00 Test Item Value Reference Range Interpretation Comments UA Glucose (test code = UA Negative mg/dL Glucose) [facility] AND [id number] 21:40:00 Test Item Value Reference Range Interpretation Comments UA Ketones (test code = UA Ketones) 20 mg/dL [facility] AND [id number] 21:40:00 Test Item Value Reference Range Interpretation Comments UA Bili (test code = Negative *NA*(06/23/22 UA Bili) 4:40 PM) [facility] AND [id number] 21:40:00 Test Item Value Reference Range Interpretation Comments UA Blood (test code = Negative (06/23/22 4:40 UA Blood) PM) [facility] AND [id number] 21:40:00 Test Item Value Reference Range Interpretation Comments UA Urobilinogen (test code = UA no gt 0.1-1.0 Urobilinogen) [facility] AND [id number] 21:40:00 Test Item Value Reference Range Interpretation Comments UA Nitrite (test code Negative (06/23/22 4:40 = UA Nitrite) PM) [facility] AND [id number] 21:40:00 Test Item Value Reference Range Interpretation Comments UA Leuk Est (test code Small *ABN*(06/23/22 = UA Leuk Est) 4:40 PM) [facility] AND [id number] 21:40:00 Test Item Value Reference Range Interpretation Comments UA Sq Epi (test code = UA Sq Epi) Many /LPF [facility] AND [id number] 21:40:00 Test Item Value Reference Range Interpretation Comments UA WBC (test code = 26 See_Comment [Automa delaney message] The UA WBC) system which ge nerated this result transmit delaney reference range : <=5. The reference range was not used to interpr et this result as kiarra l/abnormal. [facility] [id number] 21:40:00 Test Item Value Reference Range Interpretation Comments UA RBC (test code = 5 See_Comment [Automa delaney message] The UA RBC) system which ge nerated this result transmit delaney reference range : <=2. The reference range was not used to interpr et this result as kiarra l/abnormal. [place] [id number] 21:33:15 Test Item Value Reference Range Interpretation [...] of the bowel loops.3. Hardware as above. [place] [id number] 21:33:15 Test Item Value Reference Range Interpretation [...] of the bowel loops.3. Hardware as above. [id number] 21:22:43 Test Item Value Reference Range Interpretation Comments RADRPT (test code EXAM: XR CHEST 1 VIEWDATE: = RADRPT) 06/23/2022 15:24INDICATION: - PNACOMPARISON: June 20, 2022TECHNIQUE: AP chestIMPRESSION: The cardiomediastinal silhouette is normal in size. Calcifications in the aortic knob. No pleural effusions or pneumothorax. The lungs are clear. 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 Degenerative changes along the thoracic spine. [id number] 21:22:43 Test Item Value Reference Range Interpretation Comments RADRPT (test code EXAM: XR CHEST 1 VIEWDATE: = RADRPT) 06/23/2022 15:24INDICATION: - PNACOMPARISON: June 20, 2022TECHNIQUE: AP chestIMPRESSION: The cardiomediastinal silhouette is normal in size. Calcifications in the aortic knob. No pleural effusions or pneumothorax. The lungs are clear. 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 Degenerative changes along the thoracic spine. [facility]burgIebmactPMYPMH0752-01-87 11:58:38 Test Item Value Reference Range Interpretation [...] abnormal esophagus. See above.Findings discussed with Dr. Josephine Weiss MD On 06/23/2022 06:57:24; [id number] [facility] [id number] 11:58:38 Test Item Value Reference Range Interpretation [...] abnormal esophagus. See above.Findings discussed with Dr. Josephine Weiss MD On 06/23/2022 06:57:24; [id number] [facility]2022-10-21 11:00:00 Test Item Value Reference Range Interpretation Comments Glucose POC (test code = Glucose POC) 140 70-99 [facility]2022-10-21 11:00:00 Test Item Value Reference Range Interpretation Comments Gluc POC Comment 1 (test code Notified RN/MD = Gluc POC Comment 1) [facility]2022-10-21 11:00:00 Test Item Value Reference Range Interpretation Comments Gluc POC Comment 2 (test code = Cleaned Meter Gluc POC Comment 2) [place] 94[address]-10-21 11:00:00 Test Item Value Reference Range Interpretation Comments Glucose POC (test code = Glucose POC) 140 70-99 [place] 688322-10-21 11:00:00 Test Item Value Reference Range Interpretation Comments Gluc POC Comment 1 (test code Notified RN/MD = Gluc POC Comment 1) [place] 688322-10-21 11:00:00 Test Item Value Reference Range Interpretation Comments Gluc POC Comment 2 (test code = Cleaned Meter Gluc POC Comment 2) [facility]DhtokvbHQBNKCFTS7846-08-[facility] 08:40:00 Test Item Value Reference Range Interpretation Comments Phosphorus (test code = Phosphorus) 1.7 2.5-4.5 [place] 610982-10-21 08:40:00 Test Item Value Reference Range Interpretation Comments Magnesium Lvl (test code = Magnesium 1.8 1.8-2.4 Lvl) [place] [address]-10-21 08:40:00 Test Item Value Reference Range Interpretation Comments Glucose Lvl (test code = Glucose Lvl) 155 70-99 [place] [address]-10-21 08:40:00 Test Item Value Reference Range Interpretation Comments BUN (test code = BUN) 10 7-22 [place] 610982-10-21 08:40:00 Test Item Value Reference Range Interpretation Comments Creatinine Lvl (test code = Creatinine 0.41 0.50-1.40 Lvl) [facility] [id number] 08:40:00 Test Item Value Reference Range Interpretation Comments Sodium Lvl (test code = Sodium Lvl) 135 135-145 [place] 610982-10-21 08:40:00 Test Item Value Reference Range Interpretation Comments Potassium Lvl (test code = Potassium 3.1 3.5-5.1 Lvl) [place] [address]-10-21 08:40:00 Test Item Value Reference Range Interpretation Comments Chloride Lvl (test code = Chloride Lvl) 103 95-109 [place] 610982-10-21 08:40:00 Test Item Value Reference Range Interpretation Comments CO2 (test code = CO2) 24 24-32 [place] 610982-10-21 08:40:00 Test Item Value Reference Range Interpretation Comments Calcium Lvl (test code = Calcium Lvl) 8.1 8.5-10.5 [facility] CenterEdxhilgSTKAPGDYB3394-04-12 08:40:00 Test Item Value Reference Range Interpretation Comments AGAP (test code = AGAP) 11.1 10.0-20.0 [facility] CenterVkifebwTHJHJXIMS8070-33-41 08:40:00 Test Item Value Reference Range Interpretation Comments eGFR (test code = eGFR) 117 [facility] CenterTajopgwSETBOJPVKW8010-31-79 08:40:00 Test Item Value Reference Range Interpretation Comments Hgb (test code = Hgb) 8.5 12.0-16.0 [place] 676052-10-21 08:40:00 Test Item Value Reference Range Interpretation Comments Hct (test code = Hct) 25.6 36.0-48.0 [facility] CenterVkcdhyeJMIIDLKNUF5331-05-00 08:40:00 Test Item Value Reference Range Interpretation Comments WBC (test code = WBC) 15.4 3.7-10.4 [facility] CenterHspjuhzNXXCYCGFFR8108-36-05 08:40:00 Test Item Value Reference Range Interpretation Comments RBC (test code = RBC) 3.02 4.20-5.40 [facility] CenterGpqpolvEZTCPJKBAK3669-98-40 08:40:00 Test Item Value Reference Range Interpretation Comments MCV (test code = MCV) 84.7 80.0-98.0 [facility] CenterLdvcbpyCPJELPUTSX0350-54-61 08:40:00 Test Item Value Reference Range Interpretation Comments MCH (test code = MCH) 28.6 pg 27.0-31.0 [facility] CenterYhimtlfCXEOVNRHGA0780-00-89 08:40:00 Test Item Value Reference Range Interpretation Comments MCHC (test code = MCHC) 33.7 32.0-36.0 [facility] CenterPcpeeqyCZWFWOVMZO1048-26-32 08:40:00 Test Item Value Reference Range Interpretation Comments RDW (test code = RDW) 12.4 11.5-14.5 [place] 676052-10-21 08:40:00 Test Item Value Reference Range Interpretation Comments Platelet (test code = Platelet) 378 133-450 [facility] CenterWmltlgnPBXRQZFMHA4003-43-54 08:40:00 Test Item Value Reference Range Interpretation Comments MPV (test code = MPV) 8.0 7.4-10.4 [facility] CenterBideuasRUSUODQIYU5878-82-71 08:40:00 Test Item Value Reference Range Interpretation Comments Segs (test code = Segs) 67.3 45.0-75.0 [place] 676052-10-21 08:40:00 Test Item Value Reference Range Interpretation Comments Lymphocytes (test code = Lymphocytes) 25.2 20.0-40.0 [place] 676052-10-21 08:40:00 Test Item Value Reference Range Interpretation Comments Monocytes (test code = Monocytes) 4.2 2.0-12.0 [place] [address]-10-21 08:40:00 Test Item Value Reference Range Interpretation Comments Eosinophils (test code = 2.8 See_Comment [A utomated message] The Eosinophils) system which ge nerated this result tra nsmitted reference range : <=4.0. The reference r kyle was not used to int erpret this result as normal/abnormal . [place] [address]-10-21 08:40:00 Test Item Value Reference Range Interpretation Comments Basophils (test code = 0.5 See_Comment [Aut omated message] The Basophils) system which ge nerated this result tra nsmitted reference range : <=1.0. The reference r kyle was not used to int erpret this result as normal/abnormal . [place] 676052-10-21 08:40:00 Test Item Value Reference Range Interpretation Comments Neutrophils # (test code = Neutrophils 10.3 1.5-8.1 #) [place] [address]-10-21 08:40:00 Test Item Value Reference Range Interpretation Comments Lymphocytes # (test code = Lymphocytes 3.9 1.0-5.5 #) [place] [address]-10-21 08:40:00 Test Item Value Reference Range Interpretation Comments Monocytes # (test code 0.6 See_Comment [Aut omated message] The = Monocytes #) system which generated this result tra nsmitted reference range : <=0.8. The reference r kyle was not used to int erpret this result as normal/abnormal . [place] [address]-10-21 08:40:00 Test Item Value Reference Range Interpretation Comments Eosinophils # (test code 0.4 See_Comment [A utomated message] The = Eosinophils #) system whic h generated this result tra nsmitted reference range : <=0.5. The reference r kyle was not used to int erpret this result as normal/abnormal . [facility] CenterCcblvhuXTCMOZVHWL7200-71-37 08:40:00 Test Item Value Reference Range Interpretation Comments Basophils # (test code 0.1 See_Comment [Aut omated message] The = Basophils #) system which generated this result tra nsmitted reference range : <=0.2. The reference r kyle was not used to int erpret this result as normal/abnormal . [facility] CenterYzavymrQTYFNVGWU1475-40-76 08:40:00 Test Item Value Reference Range Interpretation Comments Phosphorus (test code = Phosphorus) 1.7 2.5-4.5 [place] 610982-10-21 08:40:00 Test Item Value Reference Range Interpretation Comments Magnesium Lvl (test code = Magnesium 1.8 1.8-2.4 Lvl) [place] 610982-10-21 08:40:00 Test Item Value Reference Range Interpretation Comments Glucose Lvl (test code = Glucose Lvl) 155 70-99 [facility] CenterZqfscyrSVALQIOTB9741-77-32 08:40:00 Test Item Value Reference Range Interpretation Comments BUN (test code = BUN) 10 7-22 [place] 610982-10-21 08:40:00 Test Item Value Reference Range Interpretation Comments Creatinine Lvl (test code = Creatinine 0.41 0.50-1.40 Lvl) [place] 610982-10-21 08:40:00 Test Item Value Reference Range Interpretation Comments Sodium Lvl (test code = Sodium Lvl) 135 135-145 [facility] CenterBzexxkmZPCJKUQQU6917-59-29 08:40:00 Test Item Value Reference Range Interpretation Comments Potassium Lvl (test code = Potassium 3.1 3.5-5.1 Lvl) [facility] CenterZsfchzlFIFMFADDC1676-24-17 08:40:00 Test Item Value Reference Range Interpretation Comments Chloride Lvl (test code = Chloride Lvl) 103 95-109 [place] 610982-10-21 08:40:00 Test Item Value Reference Range Interpretation Comments CO2 (test code = CO2) 24 24-32 [place] 610982-10-21 08:40:00 Test Item Value Reference Range Interpretation Comments Calcium Lvl (test code = Calcium Lvl) 8.1 8.5-10.5 [facility] CenterSzouaysMHHISXHGS5711-84-72 08:40:00 Test Item Value Reference Range Interpretation Comments AGAP (test code = AGAP) 11.1 10.0-20.0 [place] 610982-10-21 08:40:00 Test Item Value Reference Range Interpretation Comments eGFR (test code = eGFR) 117 [facility] CenterXigqeamFDSDNTNVPZ0765-10-99 08:40:00 Test Item Value Reference Range Interpretation Comments Hgb (test code = Hgb) 8.5 12.0-16.0 [facility] CenterQxtoeymWGBHKXPBVR5384-37-00 08:40:00 Test Item Value Reference Range Interpretation Comments Hct (test code = Hct) 25.6 36.0-48.0 [facility] CenterLlglovdTWFFMKLKRZ2252-95-95 08:40:00 Test Item Value Reference Range Interpretation Comments WBC (test code = WBC) 15.4 3.7-10.4 [facility] CenterFsryyxzVASZYWDTJO2174-77-76 08:40:00 Test Item Value Reference Range Interpretation Comments RBC (test code = RBC) 3.02 4.20-5.40 [facility] CenterXfgtzbmTNSRWDZPSE2877-68-42 08:40:00 Test Item Value Reference Range Interpretation Comments MCV (test code = MCV) 84.7 80.0-98.0 [facility] CenterBibgcllMKOYJXCDZD7110-65-46 08:40:00 Test Item Value Reference Range Interpretation Comments MCH (test code = MCH) 28.6 pg 27.0-31.0 [facility] CenterImuhoonZNRQZVRRUT6692-18-49 08:40:00 Test Item Value Reference Range Interpretation Comments MCHC (test code = MCHC) 33.7 32.0-36.0 [facility] [facility] [id number] 08:40:00 Test Item Value Reference Range Interpretation Comments RDW (test code = RDW) 12.4 11.5-14.5 [place] [id number] 08:40:00 Test Item Value Reference Range Interpretation Comments Platelet (test code = Platelet) 378 133-450 [facility] CenterDitaaezUCNWLGEXKR1689-18-15 08:40:00 Test Item Value Reference Range Interpretation Comments MPV (test code = MPV) 8.0 7.4-10.4 [facility] [id number] 08:40:00 Test Item Value Reference Range Interpretation Comments Segs (test code = Segs) 67.3 45.0-75.0 [place] [address]-10-21 08:40:00 Test Item Value Reference Range Interpretation Comments Lymphocytes (test code = Lymphocytes) 25.2 20.0-40.0 [place] [address]-10-21 08:40:00 Test Item Value Reference Range Interpretation Comments Monocytes (test code = Monocytes) 4.2 2.0-12.0 [place] [address]-10-21 08:40:00 Test Item Value Reference Range Interpretation Comments Eosinophils (test code = 2.8 See_Comment [A utomated message] The Eosinophils) system which ge nerated this result tra nsmitted reference range : <=4.0. The reference r kyle was not used to int erpret this result as normal/abnormal . [place] [address]-10-21 08:40:00 Test Item Value Reference Range Interpretation Comments Basophils (test code = 0.5 See_Comment [Aut omated message] The Basophils) system which ge nerated this result tra nsmitted reference range : <=1.0. The reference r kyle was not used to int erpret this result as normal/abnormal . [place] [address]-10-21 08:40:00 Test Item Value Reference Range Interpretation Comments Neutrophils # (test code = Neutrophils 10.3 1.5-8.1 #) [place] [address]-10-21 08:40:00 Test Item Value Reference Range Interpretation Comments Lymphocytes # (test code = Lymphocytes 3.9 1.0-5.5 #) [place] [address]-10-21 08:40:00 Test Item Value Reference Range Interpretation Comments Monocytes # (test code 0.6 See_Comment [Aut omated message] The = Monocytes #) system which generated this result tra nsmitted reference range : <=0.8. The reference r kyle was not used to int erpret this result as normal/abnormal . [place] [address]-10-21 08:40:00 Test Item Value Reference Range Interpretation Comments Eosinophils # (test code 0.4 See_Comment [A utomated message] The = Eosinophils #) system wh h generated this result tra nsmitted reference range : <=0.5. The reference r kyle was not used to int erpret this result as normal/abnormal . [facility] [id number] 08:40:00 Test Item Value Reference Range Interpretation Comments Basophils # (test code 0.1 See_Comment [Aut omated message] The = Basophils #) system which generated this result tra nsmitted reference range : <=0.2. The reference r kyle was not used to int erpret this result as normal/abnormal . [facility] [id number] 17:06:00 Test Item Value Reference Range Interpretation Comments Trig (test code = Trig) 94 [facility] [id number] 17:06:00 Test Item Value Reference Range Interpretation Comments Trig (test code = Trig) 94 [facility]TOBRAMYCIN:SUSC:PT:ISOLATE:ORDQN:[id number] 15:03:00 Test Item Value Reference Range Interpretation Comments Culture: Urine (test >100,000 CFU/mL code = Culture: Escherichia coli Urine) [facility] JoannaannTOBRAMYCIN:SUSC:PT:ISOLATE:ORDQN:[id number] 15:03:00 Test Item Value Reference Range Interpretation Comments Escherichia coli (test code Escherichia coli = Escherichia coli) [facility] [id number] 15:03:00 Test Item Value Reference Range Interpretation Comments UA Color (test code = Yellow *NA*(06/22/22 UA Color) 10:03 AM) [facility] [id number] 15:03:00 Test Item Value Reference Range Interpretation Comments UA Turbidity (test code Slight Cloudy = UA Turbidity) (06/22/22 10:03 AM) [facility] [id number] 15:03:00 Test Item Value Reference Range Interpretation Comments UA Spec Grav (test code = UA Spec 1.020 1 Grav) [facility] [id number] 15:03:00 Test Item Value Reference Range Interpretation Comments UA pH (test code = UA pH) 6.0 1 5.0-8.0 [facility] [id number] 15:03:00 Test Item Value Reference Range Interpretation Comments UA Protein (test code Negative (06/22/22 = UA Protein) 10:03 AM) [facility] [id number] 15:03:00 Test Item Value Reference Range Interpretation Comments UA Glucose (test code Negative (06/22/22 = UA Glucose) 10:03 AM) [facility] [id number] 15:03:00 Test Item Value Reference Range Interpretation Comments UA Ketones (test code Negative *NA*(06/22/22 = UA Ketones) 10:03 AM) [facility] [id number] 15:03:00 Test Item Value Reference Range Interpretation Comments UA Bili (test code = Negative *NA*(06/22/22 UA Bili) 10:03 AM) [facility] [id number] 15:03:00 Test Item Value Reference Range Interpretation Comments UA Blood (test code = Negative (06/22/22 10:03 UA Blood) AM) [facility] [id number] 15:03:00 Test Item Value Reference Range Interpretation Comments UA Urobilinogen (test code = UA 0.2 0.1-1.0 Urobilinogen) [facility] [id number] 15:03:00 Test Item Value Reference Range Interpretation Comments UA Nitrite (test code Negative (06/22/22 = UA Nitrite) 10:03 AM) [facility] [id number] 15:03:00 Test Item Value Reference Range Interpretation Comments UA Leuk Est (test Moderate *ABN*(06/22/22 code = UA Leuk Est) 10:03 AM) [facility] [id number] 15:03:00 Test Item Value Reference Range Interpretation Comments UA Sq Epi (test code = None Seen (06/22/22 UA Sq Epi) 10:03 AM) [facility] [id number] 15:03:00 Test Item Value Reference Range Interpretation Comments UA WBC (test code = UA WBC) 21-50 /HPF [facility] [id number] 15:03:00 Test Item Value Reference Range Interpretation Comments UA RBC (test None Seen See_Comment [Automated mes taj] code = UA RBC) (06/22/22 10:03 The system which AM) generated this result transmitted ref erence range: <=2. The reference range was not used to int erpret this result as normal/abnormal . [facility] [id number] 15:03:00 Test Item Value Reference Range Interpretation Comments UA Bacteria (test code = UA Many /HPF Bacteria) [facility] [id number] 15:03:00 Test Item Value Reference Range Interpretation Comments UA Mucus (test code = None Seen (06/22/22 UA Mucus) 10:03 AM) [facility]annTOBRAMYCIN:SUSC:PT:ISOLATE:ORDQN:[id number] 15:03:00 Test Item Value Reference Range Interpretation Comments Culture: Urine (test >100,000 CFU/mL code = Culture: Escherichia coli Urine) [facility]annTOBRAMYCIN:SUSC:PT:ISOLATE:ORDQN:[id number] 15:03:00 Test Item Value Reference Range Interpretation Comments Escherichia coli (test code Escherichia coli = Escherichia coli) [facility] [id number] 15:03:00 Test Item Value Reference Range Interpretation Comments UA Color (test code = Yellow *NA*(06/22/22 UA Color) 10:03 AM) [facility] [id number] 15:03:00 Test Item Value Reference Range Interpretation Comments UA Turbidity (test code Slight Cloudy = UA Turbidity) (06/22/22 10:03 AM) [facility] [id number] 15:03:00 Test Item Value Reference Range Interpretation Comments UA Spec Grav (test code = UA Spec 1.020 1 Grav) [facility] [id number] 15:03:00 Test Item Value Reference Range Interpretation Comments UA pH (test code = UA pH) 6.0 1 5.0-8.0 [facility] [id number] 15:03:00 Test Item Value Reference Range Interpretation Comments UA Protein (test code Negative (06/22/22 = UA Protein) 10:03 AM) [facility] [id number] 15:03:00 Test Item Value Reference Range Interpretation Comments UA Glucose (test code Negative (06/22/22 = UA Glucose) 10:03 AM) [facility] [id number] 15:03:00 Test Item Value Reference Range Interpretation Comments UA Ketones (test code Negative *NA*(06/22/22 = UA Ketones) 10:03 AM) [facility] [id number] 15:03:00 Test Item Value Reference Range Interpretation Comments UA Bili (test code = Negative *NA*(06/22/22 UA Bili) 10:03 AM) [facility] [id number] 15:03:00 Test Item Value Reference Range Interpretation Comments UA Blood (test code = Negative (06/22/22 10:03 UA Blood) AM) [facility] [id number] 15:03:00 Test Item Value Reference Range Interpretation Comments UA Urobilinogen (test code = UA 0.2 0.1-1.0 Urobilinogen) [facility] [id number] 15:03:00 Test Item Value Reference Range Interpretation Comments UA Nitrite (test code Negative (06/22/22 = UA Nitrite) 10:03 AM) [facility] [id number] 15:03:00 Test Item Value Reference Range Interpretation Comments UA Leuk Est (test Moderate *ABN*(06/22/22 code = UA Leuk Est) 10:03 AM) [facility] [id number] 15:03:00 Test Item Value Reference Range Interpretation Comments UA Sq Epi (test code = None Seen (06/22/22 UA Sq Epi) 10:03 AM) [facility] [id number] 15:03:00 Test Item Value Reference Range Interpretation Comments UA WBC (test code = UA WBC) 21-50 /HPF [facility] [id number] 15:03:00 Test Item Value Reference Range Interpretation Comments UA RBC (test None Seen See_Comment [Automated mes taj] code = UA RBC) (06/22/22 10:03 The system which AM) generated this result transmitted ref erence range: <=2. The reference range was not used to int erpret this result as normal/abnormal . [facility] [id number] 15:03:00 Test Item Value Reference Range Interpretation Comments UA Bacteria (test code = UA Many /HPF Bacteria) [facility] [id number] 15:03:00 Test Item Value Reference Range Interpretation Comments UA Mucus (test code = None Seen (06/22/22 UA Mucus) 10:03 AM) [facility]LE[facility] [id number] 02:44:00 Test Item Value Reference Range Interpretation Comments S. aureus (test code = Not Detected (06/21/22 S. aureus) 9:44 PM) [facility]2022-10-20 02:44:00 Test Item Value Reference Range Interpretation Comments S. epidermidis (test Detected code = S. epidermidis) *ABN*(06/21/22 9:44 PM) [facility]2022-10-20 02:44:00 Test Item Value Reference Range Interpretation Comments S. lugdunensis (test Not Detected code = S. lugdunensis) (06/21/22 9:44 PM) [facility]2022-10-20 02:44:00 Test Item Value Reference Range Interpretation Comments S. anginosus grp (test Not Detected (06/21/22 code = S. anginosus 9:44 PM) grp) [facility]2022-10-20 02:44:00 Test Item Value Reference Range Interpretation Comments S. agalactiae (test code Not Detected = S. agalactiae) (06/21/22 9:44 PM) [facility]2022-10-20 02:44:00 Test Item Value Reference Range Interpretation Comments S. pneumoniae (test code Not Detected = S. pneumoniae) (06/21/22 9:44 PM) [facility]2022-10-20 02:44:00 Test Item Value Reference Range Interpretation Comments S. pyogenes (test code Not Detected (06/21/22 = S. pyogenes) 9:44 PM) [facility]2022-10-20 02:44:00 Test Item Value Reference Range Interpretation Comments E. faecalis (test code Not Detected (06/21/22 = E. faecalis) 9:44 PM) [facility]2022-10-20 02:44:00 Test Item Value Reference Range Interpretation Comments E. faecium (test code Not Detected (06/21/22 = E. faecium) 9:44 PM) [facility]2022-10-20 02:44:00 Test Item Value Reference Range Interpretation Comments Staphylococcus spp. (test Detected code = Staphylococcus *ABN*(06/21/22 9:44 spp.) PM) [facility] [id number] 02:44:00 Test Item Value Reference Range Interpretation Comments Streptococcus spp. (test Not Detected code = Streptococcus (06/21/22 9:44 PM) spp.) [facility]annILLECULAR [id number] 02:44:00 Test Item Value Reference Range Interpretation Comments Listeria spp. (test Not Detected (06/21/22 code = Listeria spp.) 9:44 PM) [facility]IL[facility] [id number] 02:44:00 Test Item Value Reference Range Interpretation Comments mecA Methicillin Not Detected Resistance (test code = (06/21/22 9:44 PM) mecA Methicillin Resistance) [facility]IL[facility] [id number] 02:44:00 Test Item Value Reference Range Interpretation Comments Neela Vancomycin Not Detected Resistance (test code = (06/21/22 9:44 PM) Neela Vancomycin Resistance) [facility] [id number] 02:44:00 Test Item Value Reference Range Interpretation Comments vanB Vancomycin Not Detected Resistance (test code = (06/21/22 9:44 PM) vanB Vancomycin Resistance) [facility] [id number] 02:44:00 Test Item Value Reference Range Interpretation Comments Culture: Blood Staphylococcus species, not (test code = aureus, not S. lugdunensis, Culture: Blood) DETECTED by [employer] nucleic acid test. . Aerobic Bottle: Staphylococcus epidermidis . Critical Results Called To: Rochelle@ DN6N At: 06/23/2022 08:15 Called By: MS Read Back Ok [facility]annSt[facility] [id number] 02:44:00 Test Item Value Reference Range Interpretation Comments Staphylococcus Staphylococcus epidermidis (test code epidermidis = Staphylococcus epidermidis) [facility]annMOLE[facility]ULAR [id number] 02:44:00 Test Item Value Reference Range Interpretation Comments S. aureus (test code = Not Detected (06/21/22 S. aureus) 9:44 PM) [facility] [id number] 02:44:00 Test Item Value Reference Range Interpretation Comments S. epidermidis (test Detected code = S. epidermidis) *ABN*(06/21/22 9:44 PM) [facility]2022-10-20 02:44:00 Test Item Value Reference Range Interpretation Comments S. lugdunensis (test Not Detected code = S. lugdunensis) (06/21/22 9:44 PM) [facility]2022-10-20 02:44:00 Test Item Value Reference Range Interpretation Comments S. anginosus grp (test Not Detected (06/21/22 code = S. anginosus 9:44 PM) grp) [facility]2022-10-20 02:44:00 Test Item Value Reference Range Interpretation Comments S. agalactiae (test code Not Detected = S. agalactiae) (06/21/22 9:44 PM) [facility]2022-10-20 02:44:00 Test Item Value Reference Range Interpretation Comments S. pneumoniae (test code Not Detected = S. pneumoniae) (06/21/22 9:44 PM) [place] [id number] 02:44:00 Test Item Value Reference Range Interpretation Comments S. pyogenes (test code Not Detected (06/21/22 = S. pyogenes) 9:44 PM) [facility]2022-10-20 02:44:00 Test Item Value Reference Range Interpretation Comments E. faecalis (test code Not Detected (06/21/22 = E. faecalis) 9:44 PM) [facility]2022-10-20 02:44:00 Test Item Value Reference Range Interpretation Comments E. faecium (test code Not Detected (06/21/22 = E. faecium) 9:44 PM) [place] [id number] 02:44:00 Test Item Value Reference Range Interpretation Comments Staphylococcus spp. (test Detected code = Staphylococcus *ABN*(06/21/22 9:44 spp.) PM) [facility]2022-10-20 02:44:00 Test Item Value Reference Range Interpretation Comments Streptococcus spp. (test Not Detected code = Streptococcus (06/21/22 9:44 PM) spp.) [facility]2022-10-20 02:44:00 Test Item Value Reference Range Interpretation Comments Listeria spp. (test Not Detected (06/21/22 code = Listeria spp.) 9:44 PM) [facility] [id number] 02:44:00 Test Item Value Reference Range Interpretation Comments mecA Methicillin Not Detected Resistance (test code = (06/21/22 9:44 PM) mecA Methicillin Resistance) [facility] [id number] 02:44:00 Test Item Value Reference Range Interpretation Comments Neela Vancomycin Not Detected Resistance (test code = (06/21/22 9:44 PM) Neela Vancomycin Resistance) [facility] [id number] 02:44:00 Test Item Value Reference Range Interpretation Comments vanB Vancomycin Not Detected Resistance (test code = (06/21/22 9:44 PM) vanB Vancomycin Resistance) [facility]: [id number] 02:44:00 Test Item Value Reference Range Interpretation Comments Culture: Blood Staphylococcus species, not (test code = aureus, not S. lugdunensis, Culture: Blood) DETECTED by [employer] nucleic acid test. . Aerobic Bottle: Staphylococcus epidermidis . Critical Results Called To: Rochelle@ DN6N At: 06/23/2022 08:15 Called By: MS Read Back Ok [facility] CenterannStaphylococcus [id number] 02:44:00 Test Item Value Reference Range Interpretation Comments Staphylococcus Staphylococcus epidermidis (test code epidermidis = Staphylococcus epidermidis) [facility]: [id number] 02:22:00 Test Item Value Reference Range Interpretation Comments Culture: Blood (test code No Growth At 3 Days = Culture: Blood) [facility]: [id number] 02:22:00 Test Item Value Reference Range Interpretation Comments Culture: Blood (test code No Growth At 3 Days = Culture: Blood) [facility] CenterNetProspexPlurality [facility] [id number] 10:05:00 Test Item Value Reference Range Interpretation Comments ABO/Rh (test code = ABO/Rh) O POS [facility] [employer] [id number] 10:05:00 Test Item Value Reference Range Interpretation Comments Antibody Scrn (test Negative (06/21/22 code = Antibody Scrn) 5:05 AM) [facility] CenterGrovac [id number] 10:05:00 Test Item Value Reference Range Interpretation Comments ABO/Rh (test code = ABO/Rh) O POS [facility] B[facility] [id number] 10:05:00 Test Item Value Reference Range Interpretation Comments Antibody Scrn (test Negative (06/21/22 code = Antibody Scrn) 5:05 AM) [facility] AND [id number] 05:51:00 Test Item Value Reference Range Interpretation Comments Occult Bld Stl (test Negative (06/21/22 code = Occult Bld Stl) 12:51 AM) [facility] AND [id number] 05:51:00 Test Item Value Reference Range Interpretation Comments Occult Bld Stl (test Negative (06/21/22 code = Occult Bld Stl) 12:51 AM) [facility] AND [id number] 05:51:00 Test Item Value Reference Range Interpretation Comments Occult Bld Stl (test Negative (06/21/22 code = Occult Bld Stl) 12:51 AM) [facility] AND [id number] 05:51:00 Test Item Value Reference Range Interpretation Comments Occult Bld Stl (test Negative (06/21/22 code = Occult Bld Stl) 12:51 AM) [facility] [employer] [id number] 03:57:00 Test Item Value Reference Range Interpretation Comments Glucose Lvl (test code = Glucose Lvl) 182 70-99 [facility] CenterEquityZen [id number] 03:57:00 Test Item Value Reference Range Interpretation Comments BUN (test code = BUN) 16 7-22 [facility] CenterEquityZen [id number] 03:57:00 Test Item Value Reference Range Interpretation Comments Creatinine Lvl (test code = Creatinine 0.59 0.50-1.40 Lvl) [facility] CenterEquityZ[facility] [id number] 03:57:00 Test Item Value Reference Range Interpretation Comments Sodium Lvl (test code = Sodium Lvl) 136 135-145 [facility] CenterEquityZ[facility] [id number] 03:57:00 Test Item Value Reference Range Interpretation Comments Potassium Lvl (test code = Potassium 3.7 3.5-5.1 Lvl) [facility] Center[facility]ity[facility] [id number] 03:57:00 Test Item Value Reference Range Interpretation Comments Chloride Lvl (test code = Chloride Lvl) 96 95-109 [place] [id number] 03:57:00 Test Item Value Reference Range Interpretation Comments CO2 (test code = CO2) 34 24-32 [place] 172312-10-19 03:57:00 Test Item Value Reference Range Interpretation Comments Calcium Lvl (test code = Calcium Lvl) 9.5 8.5-10.5 [place] 172312-10-19 03:57:00 Test Item Value Reference Range Interpretation Comments Total Protein (test code = Total 8.4 6.4-8.4 Protein) [place] [address]-10-19 03:57:00 Test Item Value Reference Range Interpretation Comments Albumin Lvl (test code = Albumin Lvl) 2.6 3.5-5.0 [facility] CenterNetProspexCHRISTINA [place] [id number] 03:57:00 Test Item Value Reference Range Interpretation Comments ALT (test code = ALT) 21 See_Comment [Auto mated message] The system which ge nerated this result transmit delaney reference range : <=65. The reference range was not used to interpr et this result as kiarra l/abnormal. [facility] [id number] 03:57:00 Test Item Value Reference Range Interpretation Comments AST (test code = AST) 13 See_Comment [Auto mated message] The system which ge nerated this result transmit delaney reference range : <=37. The reference range was not used to interpr et this result as kiarra l/abnormal. [place] 172312-10-19 03:57:00 Test Item Value Reference Range Interpretation Comments Alk Phos (test code = Alk Phos) 171 39-136 [facility] [id number] 03:57:00 Test Item Value Reference Range Interpretation Comments Bili Total (test code = Bili Total) 0.3 0.2-1.3 [place] [address]-10-19 03:57:00 Test Item Value Reference Range Interpretation Comments AGAP (test code = AGAP) 9.7 10.0-20.0 [place] [address]-10-19 03:57:00 Test Item Value Reference Range Interpretation Comments B/C Ratio (test code = B/C Ratio) 27 1 6-25 [facility] [id number] 03:57:00 Test Item Value Reference Range Interpretation Comments Globulin (test code = Globulin) 5.8 2.7-4.2 [facility]2022-10-19 03:57:00 Test Item Value Reference Range Interpretation Comments A/G Ratio (test code = A/G Ratio) 0.4 1 0.7-1.6 [facility]2022-10-19 03:57:00 Test Item Value Reference Range Interpretation Comments eGFR (test code = eGFR) 107 [facility] CenterZokkgweBPHTSLMNG1429-04-66 03:57:00 Test Item Value Reference Range Interpretation Comments Glucose Lvl (test code = Glucose Lvl) 182 70-99 [place] [id number] 03:57:00 Test Item Value Reference Range Interpretation Comments BUN (test code = BUN) 16 7-22 [facility] [id number] 03:57:00 Test Item Value Reference Range Interpretation Comments Creatinine Lvl (test code = Creatinine 0.59 0.50-1.40 Lvl) [facility] [id number] 03:57:00 Test Item Value Reference Range Interpretation Comments Sodium Lvl (test code = Sodium Lvl) 136 135-145 [facility] CenterDoerpmkALSLIEDEF6300-63-44 03:57:00 Test Item Value Reference Range Interpretation Comments Potassium Lvl (test code = Potassium 3.7 3.5-5.1 Lvl) [facility] [id number] 03:57:00 Test Item Value Reference Range Interpretation Comments Chloride Lvl (test code = Chloride Lvl) 96 95-109 [facility] CenterMaubfljNICLYPGJW9502-45-94 03:57:00 Test Item Value Reference Range Interpretation Comments CO2 (test code = CO2) 34 24-32 [facility] CenterQdycdboFXYTLLXTT8286-95-37 03:57:00 Test Item Value Reference Range Interpretation Comments Calcium Lvl (test code = Calcium Lvl) 9.5 8.5-10.5 [facility] CenterIplbhcrZQSEIWYSD8196-46-26 03:57:00 Test Item Value Reference Range Interpretation Comments Total Protein (test code = Total 8.4 6.4-8.4 Protein) [facility] CenterSyuedifYQTCITPTE6934-52-89 03:57:00 Test Item Value Reference Range Interpretation Comments Albumin Lvl (test code = Albumin Lvl) 2.6 3.5-5.0 [facility]ouezjXEPGKTTYC3348-69-34 03:57:00 Test Item Value Reference Range Interpretation Comments ALT (test code = ALT) 21 See_Comment [Auto mated message] The system which ge nerated this result transmit delaney reference range : <=65. The reference range was not used to interpr et this result as kiarra l/abnormal. [facility] HwpooynSKIKYQTPT8680-97-31 03:57:00 Test Item Value Reference Range Interpretation Comments AST (test code = AST) 13 See_Comment [Auto mated message] The system which ge nerated this result transmit delaney reference range : <=37. The reference range was not used to interpr et this result as kiarra l/abnormal. [facility] RpugnjyGDBLIXRZG9281-82-92 03:57:00 Test Item Value Reference Range Interpretation Comments Alk Phos (test code = Alk Phos) 171 39-136 [facility] AxfjhksBKGWZALKS9286-21-96 03:57:00 Test Item Value Reference Range Interpretation Comments Bili Total (test code = Bili Total) 0.3 0.2-1.3 [facility] HusyjznNFQQWVCQN7799-93-77 03:57:00 Test Item Value Reference Range Interpretation Comments AGAP (test code = AGAP) 9.7 10.0-20.0 [facility] GjbzgwdYKFUDKDZI2313-23-91 03:57:00 Test Item Value Reference Range Interpretation Comments B/C Ratio (test code = B/C Ratio) 27 1 6-25 [facility] XkcwqjaQMMXJLNCM6788-47-98 03:57:00 Test Item Value Reference Range Interpretation Comments Globulin (test code = Globulin) 5.8 2.7-4.2 [facility] UwjmcpvXRRVZPLXX0530-97-81 03:57:00 Test Item Value Reference Range Interpretation Comments A/G Ratio (test code = A/G Ratio) 0.4 1 0.7-1.6 [facility] DjdvpkkEJEHZHGBB2334-97-00 03:57:00 Test Item Value Reference Range Interpretation Comments eGFR (test code = eGFR) 107 [facility] ZbgomqpQHHWFFAFSB5057-33-75 03:57:00 Test Item Value Reference Range Interpretation Comments PT (test code = PT) 13.8 s 12.0-14.7 [facility] RphrqseGPTRJAMTGD6497-71-78 03:57:00 Test Item Value Reference Range Interpretation Comments INR (test code = INR) 1.07 1 0.85-1.17 [place] [address]-10-19 03:57:00 Test Item Value Reference Range Interpretation Comments PTT (test code = PTT) 29.4 s 22.9-35.8 [place] [address]-10-19 03:57:00 Test Item Value Reference Range Interpretation Comments PT (test code = PT) 13.8 s 12.0-14.7 [place] [address]-10-19 03:57:00 Test Item Value Reference Range Interpretation Comments INR (test code = INR) 1.07 1 0.85-1.17 [place] [address]-10-19 03:57:00 Test Item Value Reference Range Interpretation Comments PTT (test code = PTT) 29.4 s 22.9-35.8 [place] 172312-10-19 03:57:00 Test Item Value Reference Range Interpretation Comments Glucose Lvl (test code = Glucose Lvl) 182 70-99 [place] 172312-10-19 03:57:00 Test Item Value Reference Range Interpretation Comments BUN (test code = BUN) 16 7-22 [place] [address]-10-19 03:57:00 Test Item Value Reference Range Interpretation Comments Creatinine Lvl (test code = Creatinine 0.59 0.50-1.40 Lvl) [facility]2022-10-19 03:57:00 Test Item Value Reference Range Interpretation Comments Sodium Lvl (test code = Sodium Lvl) 136 135-145 [place] 172312-10-19 03:57:00 Test Item Value Reference Range Interpretation Comments Potassium Lvl (test code = Potassium 3.7 3.5-5.1 Lvl) [place] 172312-10-19 03:57:00 Test Item Value Reference Range Interpretation Comments Chloride Lvl (test code = Chloride Lvl) 96 95-109 [place] 172312-10-19 03:57:00 Test Item Value Reference Range Interpretation Comments CO2 (test code = CO2) 34 24-32 [place] 172312-10-19 03:57:00 Test Item Value Reference Range Interpretation Comments Calcium Lvl (test code = Calcium Lvl) 9.5 8.5-10.5 [place] 172312-10-19 03:57:00 Test Item Value Reference Range Interpretation Comments Total Protein (test code = Total 8.4 6.4-8.4 Protein) [facility] RKQWC0862-68-13 03:57:00 Test Item Value Reference Range Interpretation Comments Albumin Lvl (test code = Albumin Lvl) 2.6 3.5-5.0 [facility] [id number] 03:57:00 Test Item Value Reference Range Interpretation Comments ALT (test code = ALT) 21 See_Comment [Auto mated message] The system which ge nerated this result transmit delaney reference range : <=65. The reference range was not used to interpr et this result as kiarra l/abnormal. [facility] [employer] [id number] 03:57:00 Test Item Value Reference Range Interpretation Comments AST (test code = AST) 13 See_Comment [Auto mated message] The system which ge nerated this result transmit delaney reference range : <=37. The reference range was not used to interpr et this result as kiarra l/abnormal. [facility] [employer] [id number] 03:57:00 Test Item Value Reference Range Interpretation Comments Alk Phos (test code = Alk Phos) 171 39-136 [facility] [employer] [id number] 03:57:00 Test Item Value Reference Range Interpretation Comments Bili Total (test code = Bili Total) 0.3 0.2-1.3 [facility] [employer] [id number] 03:57:00 Test Item Value Reference Range Interpretation Comments AGAP (test code = AGAP) 9.7 10.0-20.0 [facility] [employer] [id number] 03:57:00 Test Item Value Reference Range Interpretation Comments B/C Ratio (test code = B/C Ratio) 27 1 6-25 [facility] [employer] [id number] 03:57:00 Test Item Value Reference Range Interpretation Comments Globulin (test code = Globulin) 5.8 2.7-4.2 [facility] [employer] [id number] 03:57:00 Test Item Value Reference Range Interpretation Comments A/G Ratio (test code = A/G Ratio) 0.4 1 0.7-1.6 [facility] [employer] [id number] 03:57:00 Test Item Value Reference Range Interpretation Comments eGFR (test code = eGFR) 107 [facility] CenterHfymohuPAPGRFOXR3227-98-76 03:57:00 Test Item Value Reference Range Interpretation Comments Glucose Lvl (test code = Glucose Lvl) 182 70-99 [place] [address]-10-19 03:57:00 Test Item Value Reference Range Interpretation Comments BUN (test code = BUN) 16 7-22 [place] 610982-10-19 03:57:00 Test Item Value Reference Range Interpretation Comments Creatinine Lvl (test code = Creatinine 0.59 0.50-1.40 Lvl) [facility] CenterBvtzbzqRUVUIZPPE9728-25-75 03:57:00 Test Item Value Reference Range Interpretation Comments Sodium Lvl (test code = Sodium Lvl) 136 135-145 [facility] CenterZuyuhibUUULFAEFL2483-40-20 03:57:00 Test Item Value Reference Range Interpretation Comments Potassium Lvl (test code = Potassium 3.7 3.5-5.1 Lvl) [facility] CenterOcelmcbFSIMHBSQH3080-38-82 03:57:00 Test Item Value Reference Range Interpretation Comments Chloride Lvl (test code = Chloride Lvl) 96 95-109 [facility] CenterQjlzlxfRCVOKIIYH9876-40-09 03:57:00 Test Item Value Reference Range Interpretation Comments CO2 (test code = CO2) 34 24-32 [facility] CenterEumodckEZXSKVJHS5008-01-49 03:57:00 Test Item Value Reference Range Interpretation Comments Calcium Lvl (test code = Calcium Lvl) 9.5 8.5-10.5 [facility] CenterGmexlmvYQIAKYQLW7252-97-48 03:57:00 Test Item Value Reference Range Interpretation Comments Total Protein (test code = Total 8.4 6.4-8.4 Protein) [facility] CenterAdrrltxVACAVODXX5652-51-31 03:57:00 Test Item Value Reference Range Interpretation Comments Albumin Lvl (test code = Albumin Lvl) 2.6 3.5-5.0 [facility] CenterNdrgaccWESOOEEAL8054-18-50 03:57:00 Test Item Value Reference Range Interpretation Comments ALT (test code = ALT) 21 See_Comment [Auto mated message] The system which ge nerated this result transmit delaney reference range : <=65. The reference range was not used to interpr et this result as kiarra l/abnormal. [facility] CenterJypjnplAPKGPQSMY3503-24-89 03:57:00 Test Item Value Reference Range Interpretation Comments AST (test code = AST) 13 See_Comment [Auto mated message] The system which ge nerated this result transmit delaney reference range : <=37. The reference range was not used to interpr et this result as kiarra l/abnormal. [facility] CenterTrwqzflPFOLLGBVN4168-66-90 03:57:00 Test Item Value Reference Range Interpretation Comments Alk Phos (test code = Alk Phos) 171 39-136 [facility] CenterHvxzqgjHDNZIUFPY0875-62-10 03:57:00 Test Item Value Reference Range Interpretation Comments Bili Total (test code = Bili Total) 0.3 0.2-1.3 [facility] CenterSxqiwfrRPQIYKAFQ6917-95-17 03:57:00 Test Item Value Reference Range Interpretation Comments AGAP (test code = AGAP) 9.7 10.0-20.0 [facility] CenterQgtcasjBBSJUDOKK5129-44-72 03:57:00 Test Item Value Reference Range Interpretation Comments B/C Ratio (test code = B/C Ratio) 27 1 6-25 [facility] CenterHactgsjAFUJGZGGS7016-10-77 03:57:00 Test Item Value Reference Range Interpretation Comments Globulin (test code = Globulin) 5.8 2.7-4.2 [facility] CenterBgaxidkEMDMGXRMM3069-22-22 03:57:00 Test Item Value Reference Range Interpretation Comments A/G Ratio (test code = A/G Ratio) 0.4 1 0.7-1.6 [facility] CenterNjubpvfDDHWUSAGC4432-11-44 03:57:00 Test Item Value Reference Range Interpretation Comments eGFR (test code = eGFR) 107 [facility]YflogdjTTSLHXDOUA6543-32-26 03:57:00 Test Item Value Reference Range Interpretation Comments PT (test code = PT) 13.8 s 12.0-14.7 [facility] CenterJwqotupCUDAYGADQU3582-94-60 03:57:00 Test Item Value Reference Range Interpretation Comments INR (test code = INR) 1.07 1 0.85-1.17 [facility] CenterGrubdhxRTFEOPTIZL7936-29-50 03:57:00 Test Item Value Reference Range Interpretation Comments PTT (test code = PTT) 29.4 s 22.9-35.8 [facility] CenterGimhrgpUCBAANMEPB9295-54-75 03:57:00 Test Item Value Reference Range Interpretation Comments PT (test code = PT) 13.8 s 12.0-14.7 [facility] HospitalCaoyfucVLYWGZFBRX8907-38-34 03:57:00 Test Item Value Reference Range Interpretation Comments INR (test code = INR) 1.07 1 0.85-1.17 [facility] CenterVgogoquFQLCZYWYAL2225-67-11 03:57:00 Test Item Value Reference Range Interpretation Comments PTT (test code = PTT) 29.4 s 22.9-35.8 [place] 73326022-10-19 02:57:46 Test Item Value Reference Range Interpretation [...] organized fluid collection. No free air. Vasculature: Axcb-fr-hlibgbuo aortic atherosclerosis. No aneurysmal dilatation. Lymph nodes: [...] clinically. Dontae Croft MD On 06/20/2022 21:57:25; [id number] [facility] CenterIqhvkacSPCAJI8326-35-27 02:57:46 Test Item Value Reference Range Interpretation [...] organized fluid collection. No free air. Vasculature: Glns-mq-sotiraem aortic atherosclerosis. No aneurysmal dilatation. Lymph nodes: [...] clinically. Dontae Croft MD On 06/20/2022 21:57:25; [id number] [place] 125182-10-19 02:33:00 Test Item Value Reference Range Interpretation Comments Coronavirus (COVID-19) Not Detected NORMAN (test code = (06/20/22 9:33 PM) Coronavirus (COVID-19) NORMAN) [facility]kesoibKJITJYIKPI4229-53-36 02:33:00 Test Item Value Reference Range Interpretation Comments Coronavirus (COVID-19) Not Detected NORMAN (test code = (06/20/22 9:33 PM) Coronavirus (COVID-19) NORMAN) [facility]viewKkaypqtHNHMIZTMLM9696-51-23 02:33:00 Test Item Value Reference Range Interpretation Comments Coronavirus (COVID-19) Not Detected NORMAN (test code = (06/20/22 9:33 PM) Coronavirus (COVID-19) NORMAN) [facility]viewInkwptiVQDGELEFOE4295-64-24 02:33:00 Test Item Value Reference Range Interpretation Comments Coronavirus (COVID-19) Not Detected NORMAN (test code = (06/20/22 9:33 PM) Coronavirus (COVID-19) NORMAN) [place] 73326022-10-19 02:07:43 Test Item Value Reference Range Interpretation [...] findings. Kwadwo Tran MD On 06/20/2022 21:06:20; [id number] [place] 73326022-10-19 02:07:43 Test Item Value Reference Range Interpretation [...] findings. Kwadwo Tran MD On 06/20/2022 21:06:20; [id number] [facility] [employer] [id number] 00:50:00 Test Item Value Reference Range Interpretation Comments ABO/Rh (test code = ABO/Rh) O POS [facility] [employer] [id number] 00:50:00 Test Item Value Reference Range Interpretation Comments Antibody Scrn (test Negative (06/20/22 code = Antibody Scrn) 7:50 PM) [facility] [employer] HGLIXEW1444-83-00 00:50:00 Test Item Value Reference Range Interpretation Comments ABO/Rh (test code = ABO/Rh) O POS [employer] [id number] 00:50:00 Test Item Value Reference Range Interpretation Comments Antibody Scrn (test Negative (06/20/22 code = Antibody Scrn) 7:50 PM) [employer] [id number] 00:50:00 Test Item Value Reference Range Interpretation Comments Glucose Lvl (test code = Glucose Lvl) 154 70-99 [employer] [id number] 00:50:00 Test Item Value Reference Range Interpretation Comments BUN (test code = BUN) 18 7-22 [employer] [id number] 00:50:00 Test Item Value Reference Range Interpretation Comments Creatinine Lvl (test code = Creatinine 0.65 0.50-1.40 Lvl) [employer]2022-10-19 00:50:00 Test Item Value Reference Range Interpretation Comments Sodium Lvl (test code = Sodium Lvl) 137 135-145 [employer]2022-10-19 00:50:00 Test Item Value Reference Range Interpretation Comments Potassium Lvl (test code = Potassium 3.9 3.5-5.1 Lvl) [employer]2022-10-19 00:50:00 Test Item Value Reference Range Interpretation Comments Chloride Lvl (test code = Chloride Lvl) 99 95-109 [employer]2022-10-19 00:50:00 Test Item Value Reference Range Interpretation Comments CO2 (test code = CO2) 31 24-32 [employer]2022-10-19 00:50:00 Test Item Value Reference Range Interpretation Comments Calcium Lvl (test code = Calcium Lvl) 9.9 8.5-10.5 [employer] WKMED7317-97-66 00:50:00 Test Item Value Reference Range Interpretation Comments Total Protein (test code = Total 9.0 6.4-8.4 Protein) [facility] [id number] 00:50:00 Test Item Value Reference Range Interpretation Comments Albumin Lvl (test code = Albumin Lvl) 2.6 3.5-5.0 [facility] [employer] [id number] 00:50:00 Test Item Value Reference Range Interpretation Comments ALT (test code = ALT) 23 See_Comment [Auto mated message] The system which ge nerated this result transmit delaney reference range : <=65. The reference range was not used to interpr et this result as kiarra l/abnormal. [facility] [employer] [id number] 00:50:00 Test Item Value Reference Range Interpretation Comments AST (test code = AST) 26 See_Comment [Auto mated message] The system which ge nerated this result transmit delaney reference range : <=37. The reference range was not used to interpr et this result as kiarra l/abnormal. [facility] [employer] [id number] 00:50:00 Test Item Value Reference Range Interpretation Comments Alk Phos (test code = Alk Phos) 181 39-136 [facility] [employer] [id number] 00:50:00 Test Item Value Reference Range Interpretation Comments Bili Total (test code = Bili Total) 0.4 0.2-1.3 [facility] [employer] [id number] 00:50:00 Test Item Value Reference Range Interpretation Comments AGAP (test code = AGAP) 10.9 10.0-20.0 [facility] [employer] [id number] 00:50:00 Test Item Value Reference Range Interpretation Comments B/C Ratio (test code = B/C Ratio) 28 1 6-25 [facility] [employer] [id number] 00:50:00 Test Item Value Reference Range Interpretation Comments Globulin (test code = Globulin) 6.4 2.7-4.2 [facility] [employer] [id number] 00:50:00 Test Item Value Reference Range Interpretation Comments A/G Ratio (test code = A/G Ratio) 0.4 1 0.7-1.6 [facility] [employer] [id number] 00:50:00 Test Item Value Reference Range Interpretation Comments eGFR (test code = eGFR) 105 [facility]VeiwlfjRLQFPUHBY3098-85-64 00:50:00 Test Item Value Reference Range Interpretation Comments S Preg (test code = S Negative *NA*(06/20/22 Preg) 7:50 PM) [facility]ZtukoabOERNCZYCORUAD4943-54-84 00:50:00 Test Item Value Reference Range Interpretation Comments S Preg (test code = S Negative *NA*(06/20/22 Preg) 7:50 PM) [facility]burgXjgwtpxUWQCIEZGUT8972-46-02 00:50:00 Test Item Value Reference Range Interpretation Comments WBC (test code = WBC) 16.9 3.7-10.4 [facility] CenterTrgkbrsWOTGOARSLC8997-81-85 00:50:00 Test Item Value Reference Range Interpretation Comments RBC (test code = RBC) 4.52 4.20-5.40 [facility] CenterOthxarqMDOQOETZGB9966-22-23 00:50:00 Test Item Value Reference Range Interpretation Comments Hgb (test code = Hgb) 13.0 12.0-16.0 [facility] HospitalPmsmgwbWUWCCPYVQX9858-51-04 00:50:00 Test Item Value Reference Range Interpretation Comments Hct (test code = Hct) 39.0 36.0-48.0 [facility] HospitalVwxynzuWHDRCFSARJ3435-87-96 00:50:00 Test Item Value Reference Range Interpretation Comments MCV (test code = MCV) 86.1 80.0-98.0 [facility] HospitalRyxpetfCCOJAVAMNU8986-99-54 00:50:00 Test Item Value Reference Range Interpretation Comments MCH (test code = MCH) 28.7 pg 27.0-31.0 [facility]burgYtssdolTZKBXMZAKY9645-74-64 00:50:00 Test Item Value Reference Range Interpretation Comments MCHC (test code = MCHC) 33.3 32.0-36.0 [facility] HospitalSvlgaalNQVJQCXYVV7664-68-77 00:50:00 Test Item Value Reference Range Interpretation Comments RDW (test code = RDW) 12.8 11.5-14.5 [facility] HospitalMnuxcpmJEHCZQBTTO2678-80-61 00:50:00 Test Item Value Reference Range Interpretation Comments Platelet (test code = Platelet) 488 133-450 [facility]burgLpabjzkGLIGWOLAXJ5875-02-40 00:50:00 Test Item Value Reference Range Interpretation Comments MPV (test code = MPV) 8.3 7.4-10.4 [facility] CenterBykgviqLPAXSEREAZ2110-41-62 00:50:00 Test Item Value Reference Range Interpretation Comments Segs (test code = Segs) 72.4 45.0-75.0 [facility] CenterPdyniweBAXBNGWQNV8209-49-97 00:50:00 Test Item Value Reference Range Interpretation Comments Lymphocytes (test code = Lymphocytes) 19.8 20.0-40.0 [facility] CenterRdbdzssIAYYYTBYUW1965-02-93 00:50:00 Test Item Value Reference Range Interpretation Comments Monocytes (test code = Monocytes) 6.4 2.0-12.0 [facility] CenterWrstastYABMKOYPWH2517-19-77 00:50:00 Test Item Value Reference Range Interpretation Comments Eosinophils (test code = 0.9 See_Comment [A utomated message] The Eosinophils) system which ge nerated this result tra nsmitted reference range : <=4.0. The reference r kyle was not used to int erpret this result as normal/abnormal . [facility] CenterYwvwfokBOQZQGASNM5126-64-50 00:50:00 Test Item Value Reference Range Interpretation Comments Basophils (test code = 0.5 See_Comment [Aut omated message] The Basophils) system which ge nerated this result tra nsmitted reference range : <=1.0. The reference r kyle was not used to int erpret this result as normal/abnormal . [facility] CenterYavwxwkZVHYPKTLGB5256-52-21 00:50:00 Test Item Value Reference Range Interpretation Comments Neutrophils # (test code = Neutrophils 12.2 1.5-8.1 #) [facility] CenterWktyzwcWRMEHQMFSW2787-92-92 00:50:00 Test Item Value Reference Range Interpretation Comments Lymphocytes # (test code = Lymphocytes 3.4 1.0-5.5 #) [facility] CenterEzwyglgIQFCCUFVYZ5601-66-57 00:50:00 Test Item Value Reference Range Interpretation Comments Monocytes # (test code 1.1 See_Comment [Aut omated message] The = Monocytes #) system which generated this result tra nsmitted reference range : <=0.8. The reference r kyle was not used to int erpret this result as normal/abnormal . [facility] CenterCklxzpeLCNHBUYUSI4345-81-99 00:50:00 Test Item Value Reference Range Interpretation Comments Eosinophils # (test code 0.2 See_Comment [A utomated message] The = Eosinophils #) system whic h generated this result tra nsmitted reference range : <=0.5. The reference r kyle was not used to int erpret this result as normal/abnormal . [facility] CenterNiovdxdMWASWZDSFM8564-72-74 00:50:00 Test Item Value Reference Range Interpretation Comments Basophils # (test code 0.1 See_Comment [Aut omated message] The = Basophils #) system which generated this result tra nsmitted reference range : <=0.2. The reference r kyle was not used to int erpret this result as normal/abnormal . [facility] CenterMrgqsjeHDBPETVESV4557-58-60 00:50:00 Test Item Value Reference Range Interpretation Comments WBC (test code = WBC) 16.9 3.7-10.4 [facility] CenterYpbvghyUTECIVMMEH1833-98-64 00:50:00 Test Item Value Reference Range Interpretation Comments RBC (test code = RBC) 4.52 4.20-5.40 [facility] CenterDreomcgQIDIQAWPQD6676-55-82 00:50:00 Test Item Value Reference Range Interpretation Comments Hgb (test code = Hgb) 13.0 12.0-16.0 [facility] CenterKjbmrylMESCYWJWPL8809-60-04 00:50:00 Test Item Value Reference Range Interpretation Comments Hct (test code = Hct) 39.0 36.0-48.0 [facility] CenterNkevivjEMJHRGTDVX6748-25-62 00:50:00 Test Item Value Reference Range Interpretation Comments MCV (test code = MCV) 86.1 80.0-98.0 [facility] CenterRactbbaZLNOUNHTYA8964-51-56 00:50:00 Test Item Value Reference Range Interpretation Comments MCH (test code = MCH) 28.7 pg 27.0-31.0 [facility] CenterWqmiqpdKWPYPYRQBO6121-58-13 00:50:00 Test Item Value Reference Range Interpretation Comments MCHC (test code = MCHC) 33.3 32.0-36.0 [facility] CenterCxkhezgSICUFLWKGX6037-30-61 00:50:00 Test Item Value Reference Range Interpretation Comments RDW (test code = RDW) 12.8 11.5-14.5 [facility] HospitalSplpkdvJWGCYRSBQO8110-61-86 00:50:00 Test Item Value Reference Range Interpretation Comments Platelet (test code = Platelet) 488 133-450 [place] 676052-10-19 00:50:00 Test Item Value Reference Range Interpretation Comments MPV (test code = MPV) 8.3 7.4-10.4 [facility] CenterMkqwmqmRHWNVFEHOE5492-43-08 00:50:00 Test Item Value Reference Range Interpretation Comments PT (test code = PT) 13.5 s 12.0-14.7 [facility] CenterDktfnxpUDWFSYXKQU2640-50-49 00:50:00 Test Item Value Reference Range Interpretation Comments INR (test code = INR) 1.04 1 0.85-1.17 [place] [address]-10-19 00:50:00 Test Item Value Reference Range Interpretation Comments PTT (test code = PTT) 31.2 s 22.9-35.8 [place] 676052-10-19 00:50:00 Test Item Value Reference Range Interpretation Comments Segs (test code = Segs) 72.4 45.0-75.0 [facility] CenterCzpopijBHPOWZVEKW1666-87-54 00:50:00 Test Item Value Reference Range Interpretation Comments Lymphocytes (test code = Lymphocytes) 19.8 20.0-40.0 [facility] CenterJnwlvbiKGJDBCZSYG7443-00-73 00:50:00 Test Item Value Reference Range Interpretation Comments Monocytes (test code = Monocytes) 6.4 2.0-12.0 [facility] [facility]QhkfzcsUZIFLEWFIN1542-69-64 00:50:00 Test Item Value Reference Range Interpretation Comments Eosinophils (test code = 0.9 See_Comment [A utomated message] The Eosinophils) system which ge nerated this result tra nsmitted reference range : <=4.0. The reference r kyle was not used to int erpret this result as normal/abnormal . [facility] CenterHrpdydfKXRBMVANFD6017-44-84 00:50:00 Test Item Value Reference Range Interpretation Comments Basophils (test code = 0.5 See_Comment [Aut omated message] The Basophils) system which ge nerated this result tra nsmitted reference range : <=1.0. The reference r kyle was not used to int erpret this result as normal/abnormal . [facility] CenterWrysbkvRDAISEJRCZ8597-90-92 00:50:00 Test Item Value Reference Range Interpretation Comments Neutrophils # (test code = Neutrophils 12.2 1.5-8.1 #) [facility] CenterHatxmvlRBVJIEMUXB5711-67-65 00:50:00 Test Item Value Reference Range Interpretation Comments Lymphocytes # (test code = Lymphocytes 3.4 1.0-5.5 #) [facility]pvvmpVDIXPQWCMU3638-97-29 00:50:00 Test Item Value Reference Range Interpretation Comments Monocytes # (test code 1.1 See_Comment [Aut omated message] The = Monocytes #) system which generated this result tra nsmitted reference range : <=0.8. The reference r kyle was not used to int erpret this result as normal/abnormal . [facility] CenterIjcdmemYTLWAPUQQP0428-15-81 00:50:00 Test Item Value Reference Range Interpretation Comments Eosinophils # (test code 0.2 See_Comment [A utomated message] The = Eosinophils #) system whic h generated this result tra nsmitted reference range : <=0.5. The reference r kyle was not used to int erpret this result as normal/abnormal . [facility]burgYpeveicOZWLHSLAUP0779-42-82 00:50:00 Test Item Value Reference Range Interpretation Comments Basophils # (test code 0.1 See_Comment [Aut omated message] The = Basophils #) system which generated this result tra nsmitted reference range : <=0.2. The reference r kyle was not used to int erpret this result as normal/abnormal . [employer] [id number] 00:50:00 Test Item Value Reference Range Interpretation Comments ABO/Rh (test code = ABO/Rh) O POS [facility] [employer] [id number] 00:50:00 Test Item Value Reference Range Interpretation Comments Antibody Scrn (test Negative (06/20/22 code = Antibody Scrn) 7:50 PM) [facility] [employer] [id number] 00:50:00 Test Item Value Reference Range Interpretation Comments ABO/Rh (test code = ABO/Rh) O POS [employer] [id number] 00:50:00 Test Item Value Reference Range Interpretation Comments Antibody Scrn (test Negative (06/20/22 code = Antibody Scrn) 7:50 PM) [facility] [employer]2022-10-19 00:50:00 Test Item Value Reference Range Interpretation Comments Glucose Lvl (test code = Glucose Lvl) 154 70-99 [facility] [employer]2022-10-19 00:50:00 Test Item Value Reference Range Interpretation Comments BUN (test code = BUN) 18 7-22 [facility]2022-10-19 00:50:00 Test Item Value Reference Range Interpretation Comments Creatinine Lvl (test code = Creatinine 0.65 0.50-1.40 Lvl) [facility]2022-10-19 00:50:00 Test Item Value Reference Range Interpretation Comments Sodium Lvl (test code = Sodium Lvl) 137 135-145 [facility]2022-10-19 00:50:00 Test Item Value Reference Range Interpretation Comments Potassium Lvl (test code = Potassium 3.9 3.5-5.1 Lvl) [facility]2022-10-19 00:50:00 Test Item Value Reference Range Interpretation Comments Chloride Lvl (test code = Chloride Lvl) 99 95-109 [facility]2022-10-19 00:50:00 Test Item Value Reference Range Interpretation Comments CO2 (test code = CO2) 31 24-32 [facility]2022-10-19 00:50:00 Test Item Value Reference Range Interpretation Comments Calcium Lvl (test code = Calcium Lvl) 9.9 8.5-10.5 [facility]2022-10-19 00:50:00 Test Item Value Reference Range Interpretation Comments Total Protein (test code = Total 9.0 6.4-8.4 Protein) [facility]2022-10-19 00:50:00 Test Item Value Reference Range Interpretation Comments Albumin Lvl (test code = Albumin Lvl) 2.6 3.5-5.0 [place] 172312-10-19 00:50:00 Test Item Value Reference Range Interpretation Comments ALT (test code = ALT) 23 See_Comment [Auto mated message] The system which ge nerated this result transmit delaney reference range : <=65. The reference range was not used to interpr et this result as kiarra l/abnormal. [facility] [id number] 00:50:00 Test Item Value Reference Range Interpretation Comments AST (test code = AST) 26 See_Comment [Auto mated message] The system which ge nerated this result transmit delaney reference range : <=37. The reference range was not used to interpr et this result as kiarra l/abnormal. [facility] [id number] 00:50:00 Test Item Value Reference Range Interpretation Comments Alk Phos (test code = Alk Phos) 181 39-136 [facility] [id number] 00:50:00 Test Item Value Reference Range Interpretation Comments Bili Total (test code = Bili Total) 0.4 0.2-1.3 [facility] [id number] 00:50:00 Test Item Value Reference Range Interpretation Comments AGAP (test code = AGAP) 10.9 10.0-20.0 [facility] [id number] 00:50:00 Test Item Value Reference Range Interpretation Comments B/C Ratio (test code = B/C Ratio) 28 1 6-25 [facility] [id number] 00:50:00 Test Item Value Reference Range Interpretation Comments Globulin (test code = Globulin) 6.4 2.7-4.2 [facility] [id number] 00:50:00 Test Item Value Reference Range Interpretation Comments A/G Ratio (test code = A/G Ratio) 0.4 1 0.7-1.6 [facility] [id number] 00:50:00 Test Item Value Reference Range Interpretation Comments eGFR (test code = eGFR) 105 [facility]LmvjnfxNKHKIOCRR0254-86-24 00:50:00 Test Item Value Reference Range Interpretation Comments S Preg (test code = S Negative *NA*(06/20/22 Preg) 7:50 PM) [facility]WiomuowLHRKLWVMMHSUS4564-64-79 00:50:00 Test Item Value Reference Range Interpretation Comments S Preg (test code = S Negative *NA*(06/20/22 Preg) 7:50 PM) [facility] CenterNqvoorqOXSCKFYVWA1856-95-84 00:50:00 Test Item Value Reference Range Interpretation Comments WBC (test code = WBC) 16.9 3.7-10.4 [facility]burgDoaoavzPVFNBGEATP0897-08-68 00:50:00 Test Item Value Reference Range Interpretation Comments RBC (test code = RBC) 4.52 4.20-5.40 [facility] CenterUolcdcqKWUQKUQJRT9304-75-11 00:50:00 Test Item Value Reference Range Interpretation Comments Hgb (test code = Hgb) 13.0 12.0-16.0 [facility] CenterOcxhgaoSRNURKPNBP2489-82-65 00:50:00 Test Item Value Reference Range Interpretation Comments Hct (test code = Hct) 39.0 36.0-48.0 [facility] CenterRbmedilBSFEFKOOIH9752-22-82 00:50:00 Test Item Value Reference Range Interpretation Comments MCV (test code = MCV) 86.1 80.0-98.0 [facility] CenterGnkqzxrXIRNOURVUU3103-99-13 00:50:00 Test Item Value Reference Range Interpretation Comments MCH (test code = MCH) 28.7 pg 27.0-31.0 [facility] CenterNynogryLZABYHEXBD1178-80-94 00:50:00 Test Item Value Reference Range Interpretation Comments MCHC (test code = MCHC) 33.3 32.0-36.0 [facility] CenterGdeylkwZPOZBWJTOZ6089-57-55 00:50:00 Test Item Value Reference Range Interpretation Comments RDW (test code = RDW) 12.8 11.5-14.5 [facility] CenterNfrgilxFUTRYCGOIO8038-02-56 00:50:00 Test Item Value Reference Range Interpretation Comments Platelet (test code = Platelet) 488 133-450 [facility] CenterWnrdrylWCEIPXEPDM9006-87-07 00:50:00 Test Item Value Reference Range Interpretation Comments MPV (test code = MPV) 8.3 7.4-10.4 [facility] CenterCodsyyuNUOWRBQPUO6038-30-97 00:50:00 Test Item Value Reference Range Interpretation Comments Segs (test code = Segs) 72.4 45.0-75.0 [facility] CenterUyptebmMUPUQGJRYS0945-21-32 00:50:00 Test Item Value Reference Range Interpretation Comments Lymphocytes (test code = Lymphocytes) 19.8 20.0-40.0 [facility] CenterWebznmnPLPOYJSYTF6000-64-98 00:50:00 Test Item Value Reference Range Interpretation Comments Monocytes (test code = Monocytes) 6.4 2.0-12.0 [facility] CenterLmorjqdRNYEEIIEHT3288-37-46 00:50:00 Test Item Value Reference Range Interpretation Comments Eosinophils (test code = 0.9 See_Comment [A utomated message] The Eosinophils) system which ge nerated this result tra nsmitted reference range : <=4.0. The reference r kyle was not used to int erpret this result as normal/abnormal . [facility] CenterIslzhjvWMEJVCMYHA8692-43-47 00:50:00 Test Item Value Reference Range Interpretation Comments Basophils (test code = 0.5 See_Comment [Aut omated message] The Basophils) system which ge nerated this result tra nsmitted reference range : <=1.0. The reference r kyle was not used to int erpret this result as normal/abnormal . [facility] CenterLhfxkyoNFZFJEQMCO4221-81-74 00:50:00 Test Item Value Reference Range Interpretation Comments Neutrophils # (test code = Neutrophils 12.2 1.5-8.1 #) [facility] CenterFilnfufNTVREKUSYD8494-36-65 00:50:00 Test Item Value Reference Range Interpretation Comments Lymphocytes # (test code = Lymphocytes 3.4 1.0-5.5 #) [facility] CenterHzmqpzeEBXUTBHWLE8198-79-49 00:50:00 Test Item Value Reference Range Interpretation Comments Monocytes # (test code 1.1 See_Comment [Aut omated message] The = Monocytes #) system which generated this result tra nsmitted reference range : <=0.8. The reference r kyle was not used to int erpret this result as normal/abnormal . [facility] CenterCqojwawCIFABJQREL6180-85-92 00:50:00 Test Item Value Reference Range Interpretation Comments Eosinophils # (test code 0.2 See_Comment [A utomated message] The = Eosinophils #) system whic h generated this result tra nsmitted reference range : <=0.5. The reference r kyle was not used to int erpret this result as normal/abnormal . [facility] CenterIukqbziRYBCXRNEKE8450-60-79 00:50:00 Test Item Value Reference Range Interpretation Comments Basophils # (test code 0.1 See_Comment [Aut omated message] The = Basophils #) system which generated this result tra nsmitted reference range : <=0.2. The reference r kyle was not used to int erpret this result as normal/abnormal . [facility] CenterTycwtxpYWKIMTTAIL1247-15-47 00:50:00 Test Item Value Reference Range Interpretation Comments WBC (test code = WBC) 16.9 3.7-10.4 [facility] CenterRwnkzybUPLXJRHVRZ3785-35-51 00:50:00 Test Item Value Reference Range Interpretation Comments RBC (test code = RBC) 4.52 4.20-5.40 [facility] CenterIqzcfjuFYATMLLSAF3247-98-08 00:50:00 Test Item Value Reference Range Interpretation Comments Hgb (test code = Hgb) 13.0 12.0-16.0 [facility] CenterSxivatrZKENBOKMPH7659-17-24 00:50:00 Test Item Value Reference Range Interpretation Comments Hct (test code = Hct) 39.0 36.0-48.0 [facility] CenterQtvkmtgOTCFYPCLUJ8551-32-60 00:50:00 Test Item Value Reference Range Interpretation Comments MCV (test code = MCV) 86.1 80.0-98.0 [facility] CenterPaotgrhTYKSVAXPTG3556-57-99 00:50:00 Test Item Value Reference Range Interpretation Comments MCH (test code = MCH) 28.7 pg 27.0-31.0 [facility] CenterHumtkkgNUJYAGRYXH8941-36-55 00:50:00 Test Item Value Reference Range Interpretation Comments MCHC (test code = MCHC) 33.3 32.0-36.0 [facility] CenterLkejdpoUEJYPXKECJ7933-65-08 00:50:00 Test Item Value Reference Range Interpretation Comments RDW (test code = RDW) 12.8 11.5-14.5 [facility] CenterAbrddrnOMAFCZHNUN7316-81-27 00:50:00 Test Item Value Reference Range Interpretation Comments Platelet (test code = Platelet) 488 133-450 [facility] CenterLiwgczaIKCGVFWMEQ6013-60-07 00:50:00 Test Item Value Reference Range Interpretation Comments MPV (test code = MPV) 8.3 7.4-10.4 [facility] CenterFwcchykYXMLSAVPOW0040-22-62 00:50:00 Test Item Value Reference Range Interpretation Comments PT (test code = PT) 13.5 s 12.0-14.7 [facility] CenterCdpvdjfQDQAPWOEVW6432-74-85 00:50:00 Test Item Value Reference Range Interpretation Comments INR (test code = INR) 1.04 1 0.85-1.17 [facility] CenterEbnbexaWGWMJUFEWQ8729-48-28 00:50:00 Test Item Value Reference Range Interpretation Comments PTT (test code = PTT) 31.2 s 22.9-35.8 [facility] CenterFxwhnepPDOLGPEEFM5741-59-08 00:50:00 Test Item Value Reference Range Interpretation Comments Segs (test code = Segs) 72.4 45.0-75.0 [place] 676052-10-19 00:50:00 Test Item Value Reference Range Interpretation Comments Lymphocytes (test code = Lymphocytes) 19.8 20.0-40.0 [place] 676052-10-19 00:50:00 Test Item Value Reference Range Interpretation Comments Monocytes (test code = Monocytes) 6.4 2.0-12.0 [facility] CenterMtkdepoSFVYGEXUQA8614-87-99 00:50:00 Test Item Value Reference Range Interpretation Comments Eosinophils (test code = 0.9 See_Comment [A utomated message] The Eosinophils) system which ge nerated this result tra nsmitted reference range : <=4.0. The reference r kyle was not used to int erpret this result as normal/abnormal . [facility] CenterFqvygkbXRODBNLNBB7499-09-10 00:50:00 Test Item Value Reference Range Interpretation Comments Basophils (test code = 0.5 See_Comment [Aut omated message] The Basophils) system which ge nerated this result tra nsmitted reference range : <=1.0. The reference r kyle was not used to int erpret this result as normal/abnormal . [facility] CenterRcarhazDGBCKPZOPM4907-42-26 00:50:00 Test Item Value Reference Range Interpretation Comments Neutrophils # (test code = Neutrophils 12.2 1.5-8.1 #) [facility] CenterXtvvdowLVGEIYQMKJ4615-45-45 00:50:00 Test Item Value Reference Range Interpretation Comments Lymphocytes # (test code = Lymphocytes 3.4 1.0-5.5 #) [facility] CenterQhmawnoAJZVMXJOTL9818-36-41 00:50:00 Test Item Value Reference Range Interpretation Comments Monocytes # (test code 1.1 See_Comment [Aut omated message] The = Monocytes #) system which generated this result tra nsmitted reference range : <=0.8. The reference r kyle was not used to int erpret this result as normal/abnormal . [facility] CenterCnacuupKIWXFMTXVE1773-35-22 00:50:00 Test Item Value Reference Range Interpretation Comments Eosinophils # (test code 0.2 See_Comment [A utomated message] The = Eosinophils #) system whic h generated this result tra nsmitted reference range : <=0.5. The reference r kyle was not used to int erpret this result as normal/abnormal . [facility] CenterUllhfxzHOCRVAGNNJ9780-96-77 00:50:00 Test Item Value Reference Range Interpretation Comments Basophils # (test code 0.1 See_Comment [Aut omated message] The = Basophils #) system which generated this result tra nsmitted reference range : <=0.2. The reference r kyle was not used to int erpret this result as normal/abnormal . [facility]
[2022-08-19 12:34] LABS: Hematocrit 34.7 % (36.0-45.0); Lymphocytes % 38.7 % (15.3-44.8); MCV 82.8 fL (80-100); RBC Red Blood Cell Count 4.19 M/uL (3.86-4.86)
[2022-08-19 12:50] LABS: Albumin 2.6 g/dL (3.4-5.0); Bilirubin Total 0.6 mg/dL (0.2-1.0); Potassium 3.5 mmol/L (3.5-5.1); Protein, Total 6.5 g/dL (6.4-8.2)
--- NOTE | 2022-08-19 13:34 | RAD REPORT ---
EXAM DESCRIPTION: CT - Abdomen Pelvis W Contrast - 08/19/2022 1:05 pm CLINICAL HISTORY: Abdominal pain/vomiting COMPARISON: 2018 TECHNIQUE: Computed axial tomography of the abdomen pelvis was obtained. 100 cc Isovue-300 was admin istered intravenously. Oral contrast was not requested which limits evaluation of bowel and appendix All CT scans are performed using dose optimization technique as appropriate and may include automated exposure control or mA/KV adjustment according to patient size. FINDINGS: Fatty liver Pancreas, adrenals and kidneys are unremarkable. 1 centimeter splenic cyst. Several low-density areas within the spleen reaching the periphery. The spleen has decreased in size since the prior exam. There is retraction of the splenic capsule. Th is is most likely secondary to old splenic infarction. Low-density within the periphery of the distal splenic artery compatible with thrombus Normal appendix. No evidence of diverticulitis. No adnexal mass. Retroverted uterus. Bladder wall appears thickened. This could be secondary to incomplete distention or inflammation Cement has been placed into a T12 vertebral body fracture. Osteolysis isurrounds the cement. Retropul nanda of bone results in approximately 45% narrowing of the thecal sac. 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 Several additional low-density areas within the spleen could be acute or chronic infarct.
[2022-08-19 15:26] LABS: Urine Blood 1+ (Negative); Urine Glucose Negative (Negative); Urine Protein Trace (Negative); Urine Specific Gravity 1.015 (1.005-1.030)
[2022-08-19] MEDS ORDERED: CIPROFLOXACIN 400mg IV 400 MG/200 ML BAG IV ONE (15:32)
[2022-08-19 15:37] LABS: Urine Bacteria <20 /HPF (<20); Urine Mucus 1+ /HPF (None Seen); Urine RBC >50 /HPF (None Seen)
--- NOTE | 2022-08-19 15:59 | EDPHYS ---
Physician Documentation [facility] Name: Sunita Donohue Age: 56 yrs Sex: Female : 1965 Arrival Date: 08/19/2022 Time: 12:16 Bed 4 Private MD: ED Physician Graham Mccartney HPI: 08/19 13:46 This 56 yrs old Female presents to ER via EMS with complaints of nausea/vomiting. rn 13:46 The patient presents to the emergency department with nausea, vomiting. Onset: The rn symptoms/episode began/occurred 4 day(s) ago. Possible causes: unknown. The symptoms are aggravated by nothing. The symptoms are alleviated by nothing. Associated signs and symptoms: Pertinent positives: constipation, nausea, vomiting, Pertinent negatives: fever, GI bleeding. Severity of symptoms: At their worst the symptoms were moderate in the emergency department the symptoms are unchanged. The patient has experienced similar episodes in the past. The patient has not recently seen a physician. Pt reports nausea/vomiting for 4 days, felt weak, called 911 and passed out when stood up. No fall or trauma, caught by EMS. Reports chronic back pain but denies acute abd or flank pain. No fever. No blood in stool or emesis. Reports chronic back pain and also reports "here a lot" for abdominal complaints. . 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 - Social history:: Smoking status: Patient reports the use of cigarette tobacco products, denies chronic smoking, but will smoke occasionally. - Family history:: not pertinent. - Hospitalizations: : No recent hospitalization is reported. ROS: 13:46 Constitutional: Negative for fever, chills, and weight loss, Eyes: Negative for injury, rn pain, redness, and discharge, Neck: Negative for injury, pain, and swelling, Cardiovascular: Negative for chest pain, palpitations, and edema, Respiratory: Negative for shortness of breath, cough, wheezing, and pleuritic chest pain, Abdomen/GI: Negative for abdominal pain, diarrhea Back: Negative for injury MS/Extremity: Negative for injury and deformity, Skin: Negative for injury, rash, and discoloration, Neuro: Negative for headache, weakness, numbness, tingling, and seizure. Exam: 13:04 ECG was reviewed by the Attending Physician. rn 13:46 Constitutional: This is a well developed, well nourished patient who is awake, alert, rn and in no acute distress. Head/Face: Normocephalic, atraumatic. ENT: dry MM Neck: Trachea midline, no thyromegaly or masses palpated, and no cervical lymphadenopathy. Supple, full range of motion without nuchal rigidity, or vertebral point tenderness. No Meningismus. Chest/axilla: Normal chest wall appearance and motion. Nontender with no deformity. No lesions are appreciated. Cardiovascular: Regular rate and rhythm. No pulse deficits. Respiratory: No increased work of breathing, no retractions or nasal flaring. Abdomen/GI: Soft, non-tender, no peritoneal signs Back: No spinal tenderness. Skin: Warm, dry MS/ Extremity: Pulses equal, no cyanosis. Neuro: Awake and alert, GCS 15 Vital Signs: 12:21 BP 132 / 73; Pulse 97; Resp 18 S; Temp 98.7(O); Pulse Ox 99% on R/A; Weight 63.5 kg jd3 (R); Height 5 ft. 4 in. (162.56 cm) (R); Pain 7/10; 12:43 BP 124 / 91; Pulse 92; Resp 15; Pulse Ox 99% on R/A; hb 13:42 BP 159 / 86; Pulse 98; Resp 15 S; Pulse Ox 100% on R/A; hb 14:42 BP 135 / 81; Pulse 93; Resp 18 S; Pulse Ox 97% on R/A; hb 15:49 BP 161 / 90; Pulse 90; Resp 14 S; Pulse Ox 100% on R/A; hb 18:25 BP 167 / 88; Pulse 94; Resp 17 S; Pulse Ox 99% on R/A; kc6 20:23 BP 168 / 91; Pulse 93; Resp 13; Pulse Ox 98% on R/A; ll3 12:21 Body Mass Index 24.03 (63.50 kg, 162.56 cm) jd3 MDM: 12:16 Patient medically screened. rn 15:55 Differential diagnosis: diverticulitis, viral gastroenteritis, gastroenteritis, UTI, rn dehydration, syncope. Data reviewed: vital signs, nurses notes, lab test result(s), radiologic studies, CT scan, and as a result, I will admit patient. Counseling: I had a detailed discussion with the patient and/or guardian regarding: the historical points, exam findings, and any diagnostic results supporting the discharge/admit diagnosis, lab results, radiology results, the need for further work-up and treatment in the hospital. Response to treatment: the patient's symptoms have mildly improved after treatment, and as a result, I will admit patient. Admission orders: after a detailed discussion of the patient's condition and case, the admit orders are written by me. ED course: Pt still feels bad, very nauseated when trying to PO challenge, 4+ ketones in urine, +UTI, will admit for abx and further care. . 08/19 12:18 Order name: CBC with Diff; Complete Time: 13:42 rn 08/19 12:18 Order name: CMP; Complete Time: 13:42 rn 08/19 12:18 Order name: Lipase; Complete Time: 13:42 rn 08/19 12:18 Order name: Urine Microscopic Only; Complete Time: 15:52 rn 08/19 15:26 Order name: Urine Dipstick-Ancillary; Complete Time: 15:52 EDME 08/19 15:40 Order name: Urine Culture [facility] 08/19 12:18 Order name: CT Abd/Pelvis - IV Contrast Only; Complete Time: 13:42 rn 08/19 12:18 Order name: EKG; Complete Time: 12:19 rn 17 18:23 Order name: SARS RAPID eb 08/19 19:03 Order name: SARS-COV-2 Antigen Rapid [facility] 08/19 12:18 Order name: IV Saline Lock; Complete Time: 12:21 rn 08/19 12:18 Order name: Labs collected and sent; Complete Time: 12:30 rn 08/19 12:18 Order name: Urine Dipstick-Ancillary (obtain specimen); Complete Time: 15:27 rn 08/19 12:18 Order name: EKG - Nurse/Tech; Complete Time: 12:40 rn 08/19 12:18 Order name: Cardiac monitoring; Complete Time: 12:21 rn 08/19 12:18 Order name: O2 Sat Monitoring; Complete Time: 12:21 rn EC:04 Rate is 90 beats/min. Rhythm is regular. QRS [place] is Normal. ID interval is normal. QRS rn interval is normal. QT interval is prolonged at 484 msec. No Q waves. T waves are Normal. No ST changes noted. Clinical impression: NSR w/ Non-specific ST/T Changes. Interpreted by me. Reviewed by me. Administered Medications: 12:30 Drug: NS 0.9% 1000 ml Route: IV; Rate: 1 bolus; Site: right antecubital; hb 13:30 Follow up: Response: No adverse reaction; IV Status: Completed infusion; IV Intake: hb 1000ml 12:30 Drug: Pepcid (famotidine) 20 mg Route: IVP; Site: right antecubital; hb 13:30 Follow up: Response: No adverse reaction hb 15:36 Drug: Cipro (ciprofloxacin) 400 mg Volume: 200 ml; Route: IVPB; Infused Over: 60 mins; hb Site: right antecubital; 18:26 Follow up: Response: No adverse reaction; IV Status: Completed infusion kc6 16:45 Drug: Phenergan (promethazine) 12.5 mg Route: IVP; Site: right antecubital; kc6 18:26 Follow up: Response: No adverse reaction; Nausea is decreased kc6 Disposition Summary: 08/19/22 15:59 Hospitalization Ordered Hospitalization Status: Observation rn Provider: Michael Spence rn Location: Telemetry/MedSurg (observation) rn Condition: Stable rn Problem: new rn Symptoms: have improved rn Bed/Room Type: Standard rn Room Assignment: 220(08/19/22 19:43) mw Diagnosis - UTI/ Urinary tract infection, site not specified rn - Intractable vomiting rn - Syncope rn - Dehydration rn Forms: - Medication Reconciliation Form rn - SBAR form rn Signatures: Dispatcher [employer] Nidhi Montez RN RN Graham Mccartney MD MD rn Baxter, Heather, RN RN Loy Matamoros RN RN jd3 Campbell, Kaitlyn, RN RN kc6 Corrections: (The following items were deleted from the chart) 19:43 15:59 rn mw
--- NOTE | 2022-08-19 15:59 | ER ---
Nurse's Notes [facility] Name: Sunita Donohue Age: 56 yrs Sex: Female : 1965 Arrival Date: 08/19/2022 Time: 12:16 Bed 4 Private MD: Diagnosis: UTI/ Urinary tract infection, site not specified;Intractable vomiting;Syncope;Dehydration Presentation: 08/19 12:18 Chief complaint: EMS states: "pt is reporting nausea and vomiting since Sunday. she jd3 stood up to go to our EMS stretcher and she passed out for about 15 sec. we gave 250 bolus and started a 20 G IV to her right AC. we gave 4 mg of Zofran. she os reporting back pain as well.". Coronavirus screen: At this time, the client does not indicate any symptoms associated with coronavirus-19. Ebola Screen: No symptoms or risks identified at this time. Initial Sepsis Screen: Does the patient meet any 2 criteria? No. Patient's initial sepsis screen is negative. Does the patient have a suspected source of infection? No. Patient's initial sepsis screen is negative. Risk Assessment: Do you want to hurt yourself or someone else? Patient reports no desire to harm self or others. Onset of symptoms was August 16, 2022. 12:18 Method Of Arrival: EMS: [place] [id number] 12:18 Acuity: RIKI 3 jd3 12:20 Risk Assessment: Do you want to hurt yourself or someone else? Patient reports no kc6 desire to harm self or others. 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 - Social history:: Smoking status: Patient reports the use of cigarette tobacco products, denies chronic smoking, but will smoke occasionally. - Family history:: not pertinent. - Hospitalizations: : No recent hospitalization is reported. Screenin:17 [facility] ED Fall Risk Assessment (Adult) History of falling in the last 3 months, kc6 including since admission Yes- physiologic fall (2 pts) Confusion or Disorientation No (0 pts) Intoxicated or Sedated No (0 pts) Impaired Gait No (0 pts) Mobility Assist Device Used No (0 pt) Altered Elimination No (0 pt) Score/Fall Risk Level 0 - 2 = Low Risk Oriented to surroundings, Maintained a safe environment, Educated pt \\T\\ family on fall prevention, incl call for assistance when getting out of bed, Assessed \\T\\ reinforced patient's understanding of fall precautions, Provided non-skid footwear, Hourly rounding (assess needs \\T\\ fall precautionary measures) done, Used ambulatory aids as needed (educated on \\T\\ assisted with), Used gait belt as appropriate. Abuse screen: Denies threats or abuse. Denies injuries from another. Nutritional screening: No deficits noted. Tuberculosis screening: No symptoms or risk factors identified. 20:23 Humpty Dumpty Scale Fall Assessment Tool (age< 18yrs) Age 13 years and above (1 pt). ll3 Fall Risk No fall in past 12 months (0 pts). No secondary diagnosis (0 pts). IV access (20 points). Ambulatory Aid- None/Bed Rest/Nurse Assist (0 pts). Gait- Normal/Bed Rest/Wheelchair (0 pts) Mental Status- Oriented to own ability (0 pts). Total Rose Fall Scale indicates No Risk (0-24 pts). Assessment: 12:17 General: Appears in no apparent distress. comfortable, Behavior is calm, cooperative, kc6 appropriate for age. Pain: Complains of pain in back Pain does not radiate. Pain currently is 7 out of 10 on a pain scale. Quality of pain is described as aching, dull, Pain began gradually, Is chronic, Alleviated by rest, Aggravated by increased activity, repositioning, Also complains of no other associated symptoms. Neuro: Tom Agitation-Sedation Scale (RASS): 0 - Alert and Calm Level of Consciousness is awake, alert, obeys commands, Oriented to person, place, time, situation, Appropriate for age. Cardiovascular: Heart tones S1 S2 present Capillary refill < 3 seconds. Respiratory: Airway is patent Trachea midline Respiratory effort is even, unlabored, Respiratory pattern is regular, symmetrical, Breath sounds are clear bilaterally. GI: Abdomen is flat, non-distended, Last BM was August 12, 2022. Bowel sounds present X 4 quads. Reports nausea, vomiting, since Sunday Patient currently denies diarrhea. : No signs and/or symptoms were reported regarding the genitourinary system. EENT: No signs and/or symptoms were reported regarding the EENT system. Derm: No signs and/or symptoms reported regarding the dermatologic system. Skin is intact, Skin is pink, warm \\T\\ dry. Musculoskeletal: No signs and/or symptoms reported regarding the musculoskeletal system. Circulation, motion, and sensation intact. Capillary refill < 3 seconds, Range of motion: intact in all extremities. 13:17 Reassessment: Patient appears in no apparent distress at this time. No changes from hb previously documented assessment. Patient and/or family updated on plan of care and expected duration. Pain level reassessed. Patient is alert, oriented x 3, equal unlabored respirations, skin warm/dry/pink. 14:17 Reassessment: Patient appears in no apparent distress at this time. No changes from hb previously documented assessment. Patient and/or family updated on plan of care and expected duration. Pain level reassessed. Patient is alert, oriented x 3, equal unlabored respirations, skin warm/dry/pink. 15:17 Reassessment: Patient appears in no apparent distress at this time. No changes from hb previously documented assessment. Patient and/or family updated on plan of care and expected duration. Pain level reassessed. Patient is alert, oriented x 3, equal unlabored respirations, skin warm/dry/pink. 16:17 Reassessment: Patient appears in no apparent distress at this time. No changes from kc6 previously documented assessment. Patient and/or family updated on plan of care and expected duration. Pain level reassessed. Patient is alert, oriented x 3, equal unlabored respirations, skin warm/dry/pink. 17:17 Reassessment: Patient appears in no apparent distress at this time. No changes from kc6 previously documented assessment. Patient and/or family updated on plan of care and expected duration. Pain level reassessed. Patient is alert, oriented x 3, equal unlabored respirations, skin warm/dry/pink. 18:17 Reassessment: Patient appears in no apparent distress at this time. No changes from kc6 previously documented assessment. Patient and/or family updated on plan of care and expected duration. Pain level reassessed. Patient is alert, oriented x 3, equal unlabored respirations, skin warm/dry/pink. Vital Signs: 12:21 BP 132 / 73; Pulse 97; Resp 18 S; Temp 98.7(O); Pulse Ox 99% on R/A; Weight 63.5 kg jd3 (R); Height 5 ft. 4 in. (162.56 cm) (R); Pain 7/10; 12:43 BP 124 / 91; Pulse 92; Resp 15; Pulse Ox 99% on R/A; hb 13:42 BP 159 / 86; Pulse 98; Resp 15 S; Pulse Ox 100% on R/A; hb 14:42 BP 135 / 81; Pulse 93; Resp 18 S; Pulse Ox 97% on R/A; hb 15:49 BP 161 / 90; Pulse 90; Resp 14 S; Pulse Ox 100% on R/A; hb 18:25 BP 167 / 88; Pulse 94; Resp 17 S; Pulse Ox 99% on R/A; kc6 20:23 BP 168 / 91; Pulse 93; Resp 13; Pulse Ox 98% on R/A; ll3 12:21 Body Mass Index 24.03 (63.50 kg, 162.56 cm) jd3 ED Course: 12:16 Patient arrived in ED. 6 12:16 Graham Mccartney MD is Attending Physician. rn 12:16 Alissa Moulton RN is Primary Nurse. kc6 12:20 Arm band placed on. kc6 12:20 Patient has correct armband on for positive identification. Bed in low position. Call [facility] light in reach. Side rails up X2. 12:21 Triage completed. jd3 12:22 Maintain EMS IV. Dressing intact. Good blood return noted. Site clean \\T\\ dry. Gauge \\T\\ mary 3 site: 20 G noted to right AC. 13:07 CT Abd/Pelvis - IV Contrast Only In Process Unspecified. EDMS 15:27 Urine Microscopic Only Sent. hb 15:58 Michael Spence MD is Hospitalizing Provider. rn 16:18 No provider procedures requiring assistance completed. Patient admitted, IV remains in kc6 place. Administered Medications: 12:30 Drug: NS 0.9% 1000 ml Route: IV; Rate: 1 bolus; Site: right antecubital; hb 13:30 Follow up: Response: No adverse reaction; IV Status: Completed infusion; IV Intake: hb 1000ml 12:30 Drug: Pepcid (famotidine) 20 mg Route: IVP; Site: right antecubital; hb 13:30 Follow up: Response: No adverse reaction hb 15:36 Drug: Cipro (ciprofloxacin) 400 mg Volume: 200 ml; Route: IVPB; Infused Over: 60 mins; hb Site: right antecubital; 18:26 Follow up: Response: No adverse reaction; IV Status: Completed infusion kc6 16:45 Drug: Phenergan (promethazine) 12.5 mg Route: IVP; Site: right antecubital; kc6 18:26 Follow up: Response: No adverse reaction; Nausea is decreased kc6 Medication: 12:54 VIS not applicable for this client. hb Intake: 13:30 IV: 1000ml; Total: 1000ml. hb Outcome: 15:59 Decision to Hospitalize by Provider. rn 16:19 Condition: stable kc6 16:19 Instructed on the need for admit. 20:23 Admitted to Med/surg accompanied by tech, via wheelchair, room 220. ll3 20:23 Condition: stable 20:23 Instructed on the need for admit. 20:24 Patient left the ED. ll3 Signatures: Dispatcher [employer] EDGraham Capone MD MD rn Baxter, Heather, RN RN hb Davies, Jonathon, RN RN jd3 Loubet, Lynsea, RN RN ll3 Alissa Moulton RN RN kc6
[2022-08-19] MEDS ORDERED: ONDANSETRON 4 MG/2 ML VIAL ONE (16:34)
[2022-08-19] MEDS ORDERED: PROMETHAZINE INJ 25 MG/ML AMP ONE (16:39)
[2022-08-19 19:03] LABS: SARS-CoV-2 Antigen Rapid Res Negative (Negative)
--- NOTE | 2022-08-19 19:44 | P.HP ---
Certification for Inpatient Patient admitted to: Inpatient With expected LOS: >2 Midnights Patient will require the following post-hospital care: None Practitioner: I am a practitioner with admitting privileges, knowledge of patient current condition, hospital course, and medical plan of care. 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 She has a history of dm2, htn, She is very non compliant with her medication Specifically her insulin. She has recently been on a 6 week course of cefazolin. The patient states there was an infection in all her orgins. We have not recieved the records from [facility] yet. The patient has been having nausea and vomiting for the past 3 days. Her home health nurse called us yesterday. Called the patient. States she was not able to eat. Stopped taking her insulin. She was directed to come to the ER Yesterday. She came today. Was found to have a uti. Will admit her for treatment Allergies No Known Allergies Allergy (Unverified 11/03/21 07:18) Home Medications: Dapagliflozin Propanediol [Farxiga] 5 mg PO DAILY 11/03/21 Metformin HCl [Metformin HCl ER] 750 mg PO DAILY 11/03/21 Omeprazole 20 mg PO DAILY 11/03/21 Aspirin [Aspirin EC] 81 mg PO BEDTIME 90 Days #90 tablet. 11/04/21 Atorvastatin Calcium [Lipitor] 40 mg PO BEDTIME 90 Days #90 tablet 11/04/21 Folic Acid 1 mg PO DAILY 90 Days #90 tablet 11/04/21 Lisinopril [Zestril] 2.5 mg PO DAILY 90 Days #90 tablet 11/04/21 - Past Medical/Surgical History Diabetic: Yes -: HTN -: diabetes mellitus II -: tubal ligation - Family History Mother -: Hypertension, Diabetes Father -: Hypertension, Diabetes - Social History Alcohol use: No CD- Drugs: No Caffeine use: Yes Review of Systems 10-point ROS is otherwise unremarkable General: Malaise Gastrointestinal: Nausea, Vomiting Physical Examination - Physical Exam General: Alert, In no apparent distress HEENT: Atraumatic, PERRLA, Mucous membr. moist/pink, EOMI, Sclerae nonicteric Neck: Supple, 2+ carotid pulse no bruit, No LAD, Without JVD or thyroid abnormality Respiratory: Clear to auscultation bilaterally, Normal air movement Cardiovascular: Regular rate/rhythm, Normal S1 S2 Gastrointestinal: Normal bowel sounds, No tenderness Musculoskeletal: No tenderness Integumentary: No rashes Neurological: Normal gait, Normal speech, Normal strength at 5/5 x4 extr, Normal tone, Normal affect Lymphatics: No axilla or inguinal lymphadenopathy - Studies Laboratory Data (last 24 hrs) 08/19/22 12:27: Sodium 136, Potassium 3.5, BUN 21 H, Creatinine 0.62, Glucose 100, Total Bilirubin 0.6, AST 18, ALT 18, Alkaline Phosphatase 108, Lipase 75 08/19/22 12:27: WBC 10.30, Hgb 11.1 L, Hct 34.7 L, Plt Count 487 H Assessment and Plan - Problems (Diagnosis) (1) UTI (urinary tract infection) Current Visit: Yes Status: Acute Plan: will treat this as a complicated uti. Start her on levaquin. Will await cultures before discharging the patient Qualifiers: Urinary tract infection type: acute cystitis (2) Diabetes mellitus Onset Date: 09/25/18 Current Visit: No Status: Acute Plan: start her on low dose insulin and sliding scale. 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 Adjust as necessary Qualifiers: Hypertension type: primary hypertension Qualified Code(s): I10 - Essential (primary) hypertension (4) Bipolar 1 disorder, depressed Current Visit: Yes Status: Chronic Plan: Patient has a long history of drug abuse and non compliance with her medications. She normally asks for pain medications in the office. Will start with prn alprazolam while she is inpatient Discharge Plan: Home Plan to discharge in: Greater than 2 days - Advance Directives Does patient have a Living Will: No Does patient have a Durable POA for Healthcare: No - Code Status/Comfort Care Code Status Assessed: Yes Code Status: Full Code Physician Review: Patient Assessed, Agree with Above Assessment and Plan Critical Care: No Time Spent Managing Pts Care (In Minutes): 50
[2022-08-19] MEDS ORDERED: D50W 25 GM/50 ML SYRINGE IV PRN (19:49)
[2022-08-19] MEDS ORDERED: GLUCAGON 1 MG/VIAL IM PRN (19:49)
[2022-08-19] MEDS ORDERED: ONDANSETRON 4 MG/2 ML VIAL IV PRN (20:22)
[2022-08-19] MEDS ORDERED: NA CHLORIDE 0.9% 1,000 ML IV SCH (20:22)
[2022-08-19] MEDS ORDERED: Levofloxacin 750mg IV 750 MG/150 ML BAG IV SCH (20:22)
[2022-08-19] MEDS: INSULIN -REGULAR HUMAN 50 UNIT/0.5 ML ML SQ SCH (21:00)
[2022-08-19] MEDS ORDERED: D10W 125 ML IV PRN (21:11)
[2022-08-19] MEDS: NA CHLORIDE 0.9% 1,000 ML IV SCH (21:24)
[2022-08-19] MEDS: ATORVASTATIN 40 MG TAB PO SCH (21:41)
[2022-08-19] MEDS: Levofloxacin500mg IV 500 MG/100 ML BAG IV SCH (21:41)
[2022-08-19] MEDS: ALPRAZOLAM 0.25 MG TABLET PO PRN (21:42)
[2022-08-19] MEDS: ASPIRIN EC 81 MG TAB PO SCH (21:42)
[2022-08-20 04:11] LABS: Absolute Lymphocytes (CBC) 4.1 K/uL (0.7-4.9); Hematocrit 31.7 % (36.0-45.0); Lymphocytes % 42.2 % (15.3-44.8); MCV 82.3 fL (80-100); MPV 8.5 fL (7.6-11.3); RBC Red Blood Cell Count 3.85 M/uL (3.86-4.86)
[2022-08-20 04:26] LABS: Albumin 2.3 g/dL (3.4-5.0); Bilirubin Total 0.6 mg/dL (0.2-1.0); Potassium 3.2 mmol/L (3.5-5.1); Protein, Total 5.8 g/dL (6.4-8.2)
[2022-08-20] MEDS: INSULIN -REGULAR HUMAN 50 UNIT/0.5 ML ML SQ SCH ×4 (07:30→21:21)
[2022-08-20] MEDS: ONDANSETRON 4 MG/2 ML VIAL IV PRN ×2 (07:50→18:39)
[2022-08-20] MEDS: PANTOPRAZOLE 40MG TABLET PO SCH (07:50)
[2022-08-20] MEDS: FOLIC ACID 1 MG TABLET PO SCH (07:50)
[2022-08-20] MEDS: NA CHLORIDE 0.9% 1,000 ML IV SCH (07:52)
--- NOTE | 2022-08-20 08:41 | P.PN ---
Subjective Date of Service: 08/20/22 Primary Care Provider: Jordy Chief Complaint: UTI Subjective: No new changes Review of Systems 10-point ROS is otherwise unremarkable Gastrointestinal: Nausea Physical Examination - Vital Signs Temperature: 97.6 F Blood Pressure: 175/84 Pulse: 94 Respirations: 18 Pulse Ox (%): 97 - Physical Exam General: Alert, In no apparent distress HEENT: Atraumatic, PERRLA, EOMI Neck: Supple, JVD not distended Respiratory: Clear to auscultation bilaterally, Normal air movement Cardiovascular: Regular rate/rhythm, Normal S1 S2 Gastrointestinal: Normal bowel sounds, No tenderness Musculoskeletal: No tenderness Integumentary: No rashes Neurological: Normal speech, Normal tone, Normal affect Lymphatics: No axilla or inguinal lymphadenopathy - Studies Laboratory Data (last 24 hrs) 08/19/22 12:27: Sodium 136, Potassium 3.5, BUN 21 H, Creatinine 0.62, Glucose 100, Total Bilirubin 0.6, AST 18, ALT 18, Alkaline Phosphatase 108, Lipase 75 08/19/22 12:27: WBC 10.30, Hgb 11.1 L, Hct 34.7 L, Plt Count 487 H Assessment And Plan - Current Problems (Diagnosis) (1) UTI (urinary tract infection) Current Visit: Yes Status: Acute Plan: will treat this as a complicated uti. Start her on levaquin. Will await cultures before discharging the patient Qualifiers: Urinary tract infection type: acute cystitis (2) Diabetes mellitus Onset Date: 09/25/18 Current Visit: No Status: Acute Plan: start her on low dose insulin and sliding scale. ADA diet Qualifiers: Diabetes mellitus type: type 2 Diabetes mellitus longterm insulin use: without continuous churn buttermaker use Diabetes mellitus complication status: without complication Qualified Code(s): E11.9 - Type 2 diabetes mellitus without complications (3) HTN (hypertension) Onset Date: 09/25/18 Current Visit: No Status: Acute Plan: restart her home meds. Adjust as necessary Qualifiers: Hypertension type: primary hypertension Qualified Code(s): I10 - Essential (primary) hypertension (4) Bipolar 1 disorder, depressed Current Visit: Yes Status: Chronic Plan: Patient has a long history of drug abuse and non compliance with her medications. She normally asks for pain medications in the office. Will start with prn alprazolam while she is inpatient Discharge Plan: Home Plan to discharge in: 48 Hours - Code Status/Comfort Care Code Status Assessed: No Physician Review: Patient Assessed, Agree with Above Assessment and Plan Critical Care: No Time Spent Managing PTS Care (In Minutes): 20
[2022-08-20] MEDS ORDERED: lisinopriL 5 MG TAB PO SCH (09:00)
[2022-08-20] MEDS: lisinopriL 5 MG TAB PO SCH (10:49)
--- NOTE | 2022-08-20 15:51 | EKG ---
Test Date: 2022-08-19 Test Time: 12:35:21 Marketing Development Manager: HB MEASUREMENT RESULTS: Intervals: Rate: 90 NV: 148 QRSD: 88 QT: 396 QTc: 484 [place]: P: 55 NV: 148 QRS: 65 T: 19 INTERPRETIVE STATEMENTS: Normal sinus rhythm Nonspecific ST abnormality Prolonged QT Abnormal ECG Compared to ECG 11/02/2021 12:35:35 ST (T wave) deviation now present Prolonged QT interval now present Electronically Signed On 08-20-22 15:50:29 ESCROW ASSISTANT by Trell Aquino
[2022-08-20] MEDS: ENOXAPARIN 40 MG/0.4 ML SQ SCH (16:31)
[2022-08-20] MEDS: ATORVASTATIN 40 MG TAB PO SCH (20:09)
[2022-08-20] MEDS: ASPIRIN EC 81 MG TAB PO SCH (20:09)
[2022-08-20] MEDS: ALPRAZOLAM 0.25 MG TABLET PO PRN (20:09)
[2022-08-20] MEDS: Levofloxacin500mg IV 500 MG/100 ML BAG IV SCH (20:11)
[2022-08-20] MEDS: ACETAMINOPHEN 500 MG TAB PO PRN (21:21)
[2022-08-21] MEDS: NA CHLORIDE 0.9% 1,000 ML IV SCH ×2 (00:31→15:35)
[2022-08-21] MEDS ORDERED: NA CHLORIDE 0.9% 250 ML IV ONE (01:02)
[2022-08-21 06:39] LABS: Absolute Lymphocytes (CBC) 3.9 K/uL (0.7-4.9); Hematocrit 28.7 % (36.0-45.0); Lymphocytes % 47.8 % (15.3-44.8); MCV 82.3 fL (80-100); MPV 7.9 fL (7.6-11.3); RBC Red Blood Cell Count 3.49 M/uL (3.86-4.86)
[2022-08-21] MEDS: ACETAMINOPHEN 500 MG TAB PO PRN (06:54)
[2022-08-21 07:00] LABS: Bilirubin Total 0.3 mg/dL (0.2-1.0); Potassium 3.3 mmol/L (3.5-5.1)
[2022-08-21] MEDS: INSULIN -REGULAR HUMAN 50 UNIT/0.5 ML ML SQ SCH ×4 (07:30→21:00)
--- NOTE | 2022-08-21 08:12 | P.PN ---
Subjective Date of Service: 08/21/22 Primary Care Provider: Jordy Chief Complaint: UTI Subjective: No new changes Review of Systems 10-point ROS is otherwise unremarkable Gastrointestinal: Abdominal Pain, Constipation Physical Examination - Vital Signs Temperature: 97.2 F Blood Pressure: 101/55 Pulse: 77 Respirations: 18 Pulse Ox (%): 98 - Physical Exam General: Alert, In no apparent distress HEENT: Atraumatic, PERRLA, EOMI Neck: Supple, JVD not distended Respiratory: Clear to auscultation bilaterally, Normal air movement Cardiovascular: Regular rate/rhythm, Normal S1 S2 Gastrointestinal: Normal bowel sounds, No tenderness Musculoskeletal: No tenderness Integumentary: No rashes Neurological: Normal speech, Normal tone, Normal affect Lymphatics: No axilla or inguinal lymphadenopathy - Studies Microbiology Data (last 24 hrs): 08/19/22 15:24 Clean Catch Urine [place] Count - Final >100,000 CFU/ML. 08/19/22 15:24 Clean Catch Urine - Final Escherichia Coli Esbl Assessment And Plan - Current Problems (Diagnosis) (1) UTI (urinary tract infection) Current Visit: Yes Status: Acute Plan: will treat this as a complicated uti. Start her on levaquin. Will await cultures before discharging the patient 08/21 has esbl e coli. Will start her on meropenem in house. We can send her home on bactrim and nitrofurantin. Both of which she is sensitive to. Qualifiers: Urinary tract infection type: acute cystitis (2) Diabetes mellitus Onset Date: 09/25/18 Current Visit: No Status: Acute Plan: start her on low dose insulin and sliding scale. ADA diet Qualifiers: Diabetes mellitus type: type 2 Diabetes mellitus intermediate manager insulin use: without detention use Diabetes mellitus complication status: without c omplication Qualified Code(s): E11.9 - Type 2 diabetes mellitus without complications (3) HTN (hypertension) Onset Date: 09/25/18 Current Visit: No Status: Acute Plan: restart her home meds. Adjust as necessary Qualifiers: Hypertension type: primary hypertension Qualified Code(s): I10 - Essential (primary) hypertension (4) Bipolar 1 disorder, depressed Current Visit: Yes Status: Chronic Plan: Patient has a long history of drug abuse and non compliance with her medications. She normally asks for pain medications in the office. Will start with prn alprazolam while she is inpatient (5) Constipation Current Visit: Yes Status: Acute Plan: will start her on docusate. Will have have her ambulated by PT. the patient is asking for pain meds. Which would worsen constipation. Her back pain would improve with movement. However she has taken the sick role for a long time. Patient participation in her care is lacking Qualifiers: Constipation type: unspecified constipation type Qualified Code(s): K59.00 - Constipation, unspecified Discharge Plan: Home Plan to discharge in: 24 Hours - Code Status/Comfort Care Code Status Assessed: No Physician Review: Patient Assessed, Agree with Above Assessment and Plan Critical Care: No Time Spent Managing PTS Care (In Minutes): 25
[2022-08-21] MEDS: PANTOPRAZOLE 40MG TABLET PO SCH (08:52)
[2022-08-21] MEDS: lisinopriL 5 MG TAB PO SCH (08:52)
[2022-08-21] MEDS: FOLIC ACID 1 MG TABLET PO SCH (08:52)
[2022-08-21] MEDS: DOCUSATE NA 100 MG CAP PO SCH ×2 (08:53→19:59)
[2022-08-21] MEDS ORDERED: Meropenem 500 MG in NA CHLORIDE 0.9% 100 ML IV SCH (09:00)
[2022-08-21] MEDS: ONDANSETRON 4 MG/2 ML VIAL IV PRN ×2 (09:46→16:12)
[2022-08-21] MEDS: TRAMADOL 37.5mg/APAP 325mg PER TAB PO PRN (16:12)
[2022-08-21] MEDS: Meropenem 1,000 MG in NA CHLORIDE 0.9% 100 ML IV SCH (16:12)
[2022-08-21] MEDS: ENOXAPARIN 40 MG/0.4 ML SQ SCH (16:13)
[2022-08-21] MEDS: ASPIRIN EC 81 MG TAB PO SCH (19:59)
[2022-08-21] MEDS: ATORVASTATIN 40 MG TAB PO SCH (19:59)
[2022-08-22] MEDS: Meropenem 1,000 MG in NA CHLORIDE 0.9% 100 ML IV SCH ×3 (00:12→17:30)
[2022-08-22 06:17] LABS: Absolute Lymphocytes (CBC) 3.6 K/uL (0.7-4.9); Hematocrit 29.2 % (36.0-45.0); Lymphocytes % 56.2 % (15.3-44.8); MCV 82.3 fL (80-100); MPV 8.4 fL (7.6-11.3); RBC Red Blood Cell Count 3.55 M/uL (3.86-4.86)
[2022-08-22 06:24] LABS: Bilirubin Total 0.2 mg/dL (0.2-1.0); Potassium 3.2 mmol/L (3.5-5.1)
[2022-08-22] MEDS: INSULIN -REGULAR HUMAN 50 UNIT/0.5 ML ML SQ SCH ×4 (07:30→21:00)
[2022-08-22] MEDS: lisinopriL 5 MG TAB PO SCH (09:56)
[2022-08-22] MEDS: PANTOPRAZOLE 40MG TABLET PO SCH (09:56)
[2022-08-22] MEDS: FOLIC ACID 1 MG TABLET PO SCH (09:57)
[2022-08-22] MEDS: DOCUSATE NA 100 MG CAP PO SCH ×2 (09:57→20:59)
--- NOTE | 2022-08-22 12:14 | P.PN ---
Subjective Date of Service: 08/22/22 Primary Care Provider: Jordy Chief Complaint: UTI Subjective: No new changes Review of Systems 10-point ROS is otherwise unremarkable General: Weakness Physical Examination - Vital Signs Temperature: 97.0 F Blood Pressure: 147/65 Pulse: 76 Respirations: 14 Pulse Ox (%): 99 - Physical Exam General: Alert, In no apparent distress HEENT: Atraumatic, PERRLA, EOMI Neck: Supple, JVD not distended Respiratory: Clear to auscultation bilaterally, Normal air movement Cardiovascular: Regular rate/rhythm, Normal S1 S2 Gastrointestinal: Normal bowel sounds, No tenderness Musculoskeletal: No tenderness Integumentary: No rashes Neurological: Normal speech, Normal tone, Normal affect Lymphatics: No axilla or inguinal lymphadenopathy - Studies Microbiology Data (last 24 hrs): 08/19/22 15:24 Clean Catch Urine [place] Count - Final >100,000 CFU/ML. 08/19/22 15:24 Clean Catch Urine - Final Escherichia Coli Esbl Assessment And Plan - Current Problems (Diagnosis) (1) UTI (urinary tract infection) Current Visit: Yes Status: Acute Plan: will treat this as a complicated uti. Start her on levaquin. Will await cultures before discharging the patient 08/21 has esbl e coli. Will start her on meropenem in house. We can send her home on bactrim and nitrofurantin. Both of which she is sensitive to. day 2 of meropene m Qualifiers: Urinary tract infection type: acute cystitis (2) Diabetes mellitus Onset Date: 09/25/18 Current Visit: No Status: Acute Plan: start her on low dose insulin and sliding scale. ADA diet Qualifiers: Diabetes mellitus type: type 2 Diabetes mellitus terminal superintendent insulin use: without terminal superintendent use Diabetes mellitus complication status: without complication Qualified Code(s): E11.9 - Type 2 diabetes mellitus without complications (3) HTN (hypertension) Onset Date: 09/25/18 Current Visit: No Status: Acute Plan: restart her home meds. Adjust as necessary Qualifiers: Hypertension type: primary hypertension Qualified Code(s): I10 - Essential (primary) hypertension (4) Bipolar 1 disorder, depressed Current Visit: Yes Status: Chronic Plan: Patient has a long history of drug abuse and non compliance with her medications. She normally asks for pain medications in the office. Will start with prn alprazolam while she is inpatient (5) Constipation Current Visit: Yes Status: Acute Plan: will start her on docusate. Will have have her ambulated by PT. the patient is asking for pain meds. Which would worsen constipation. Her back pain would improve with movement. However she has taken the sick role for a long time. Patient participation in her care is lacking Qualifiers: Constipation type: unspecified constipation type Qualified Code(s): K59.00 - Constipation, unspecified Discharge Plan: Home Plan to discharge in: 24 Hours - Code Status/Comfort Care Code Status Assessed: No Physician Review: Patient Assessed, Agree with Above Assessment and Plan Critical Care: No Time Spent Managing PTS Care (In Minutes): 20
[2022-08-22] MEDS: NA CHLORIDE 0.9% 1,000 ML IV SCH ×2 (14:40→20:58)
[2022-08-22] MEDS: ENOXAPARIN 40 MG/0.4 ML SQ SCH (17:00)
[2022-08-22] MEDS: ASPIRIN EC 81 MG TAB PO SCH (20:59)
[2022-08-22] MEDS: ATORVASTATIN 40 MG TAB PO SCH (20:59)
[2022-08-22] MEDS: TRAMADOL 37.5mg/APAP 325mg PER TAB PO PRN (21:06)
[2022-08-23 01:06] VITALS: BMI 23.8
[2022-08-23 01:07] VITALS: TEMP 97.3
[2022-08-23] MEDS: Meropenem 1,000 MG in NA CHLORIDE 0.9% 100 ML IV SCH ×2 (01:10→08:58)
[2022-08-23] MEDS: NA CHLORIDE 0.9% 1,000 ML IV SCH (04:00)
[2022-08-23] MEDS: ONDANSETRON 4 MG/2 ML VIAL IV PRN (05:01)
[2022-08-23] MEDS: INSULIN -REGULAR HUMAN 50 UNIT/0.5 ML ML SQ SCH ×2 (07:30→12:18)
[2022-08-23 08:09] VITALS: BP 142/78
--- NOTE | 2022-08-23 08:14 | P.PN ---
Subjective Date of Service: 08/23/22 Primary Care Provider: Jordy Chief Complaint: UTI Subjective: No new changes Review of Systems 10-point ROS is otherwise unremarkable Physical Examination - Vital Signs Temperature: 97.3 F Blood Pressure: 142/78 Pulse: 77 Respirations: 16 Pulse Ox (%): 97 - Physical Exam General: Alert, In no apparent distress HEENT: Atraumatic, PERRLA, EOMI Neck: Supple, JVD not distended Respiratory: Clear to auscultation bilaterally, Normal air movement Cardiovascular: Regular rate/rhythm, Normal S1 S2 Gastrointestinal: Normal bowel sounds, No tenderness Musculoskeletal: No tenderness Integumentary: No rashes Neurological: Normal speech, Normal tone, Normal affect Lymphatics: No axilla or inguinal lymphadenopathy Assessment And Plan - Current Problems (Diagnosis) (1) UTI (urinary tract infection) Current Visit: Yes Status: Acute Plan: will treat this as a complicated uti. Start her on levaquin. Will await cultures before discharging the patient 08/21 has esbl e coli. Will start her on meropenem in house. We can send her home on bactrim and nitrofurantin. Both of which she is sensitive to. day 3 of meropenem Qualifiers: Urinary tract infection type: acute cystitis (2) Diabetes mellitus Onset Date: 09/25/18 Current Visit: No Status: Acute Plan: start her on low dose insulin and sliding scale. ADA diet Qualifiers: Diabetes mellitus type: type 2 Diabetes mellitus chief engineer insulin use: without chief engineer use Diabetes mellitus complication status: without complication Qualified Code(s): E11.9 - Type 2 diabetes mellitus without complications (3) HTN (hypertension) Onset Date: 09/25/18 Current Visit: No Status: Acute Plan: restart her home meds. Adjust as necessary Qualifiers: Hypertension type: primary hypertension Qualified Code(s): I10 - Essential (primary) hypertension (4) Bipolar 1 disorder, depressed Current Visit: Yes Status: Chronic Plan: Patient has a long history of drug abuse and non compliance with her medications. She normally asks for pain medications in the office. Will start with prn alprazolam while she is inpatient (5) Constipation Current Visit: Yes Status: Acute Plan: will start her on docusate. Will have have her ambulated by PT. the patient is asking for pain meds. Which would worsen constipation. Her back pain would improve with movement. However she has taken the sick role for a long time. Patient participation in her care is lacking Qualifiers: Constipation type: unspecified constipation type Qualified Code(s): K59.00 - Constipation, unspecified Discharge Plan: Home Plan to discharge in: 24 Hours - Code Status/Comfort Care Code Status Assessed: No Physician Review: Patient Assessed, Agree with Above Assessment and Plan Critical Care: No Time Spent Managing PTS Care (In Minutes): 20
[2022-08-23] MEDS ORDERED: NA CHLORIDE 0.9% 100 ML ONE (08:24)
[2022-08-23] MEDS ORDERED: Meropenem 1000 MG/VIAL IV ONE (08:34)
[2022-08-23] MEDS: DOCUSATE NA 100 MG CAP PO SCH (08:57)
[2022-08-23] MEDS: FOLIC ACID 1 MG TABLET PO SCH (08:58)
[2022-08-23] MEDS: lisinopriL 5 MG TAB PO SCH (08:58)
[2022-08-23] MEDS: PANTOPRAZOLE 40MG TABLET PO SCH (08:58)
--- NOTE | 2022-08-23 09:51 | P.DS ---
Admission Date: 08/19/22 Discharge Date: 08/23/22 Primary Care Provider: Jordy Disposition: ROUTINE DISCHARGE Discharge Condition: GOOD Reason for Admission: UTI - Problems (1) UTI (urinary tract infection) Current Visit: Yes Status: Acute Qualifiers: Urinary tract infection type: acute cystitis (2) Diabetes mellitus Onset Date: 09/25/18 Current Visit: No Status: Acute Qualifiers: Diabetes mellitus type: type 2 Diabetes mellitus intermediate teacher insulin use: without intermediate teacher use Diabetes mellitus complication status: without complication Qualified Code(s): E11.9 - Type 2 diabetes mellitus without complications (3) HTN (hypertension) Onset Date: 09/25/18 Current Visit: No Status: Acute Qualifiers: Hypertension type: primary hypertension Qualified Code(s): I10 - Essential (primary) hypertension (4) Bipolar 1 disorder, depressed Current Visit: Yes Status: Chronic (5) Constipation Current Visit: Yes Status: Acute Qualifiers: Constipation type: unspecified constipation type Qualified Code(s): K59.00 - Constipation, unspecified Brief History of Present Illness: Office patient of [facility]. She has a history of dm2, htn, She is very non compliant with her medication Specifically her insulin. She has recently been on a 6 week course of cefazolin. The patient states there was an infection in all her orgins. We have not recieved the records from [facility] yet. The patient has been having nausea and vomiting for the past 3 days. Her home health nurse called us yesterday. Called the patient. States she was not able to eat. Stopped taking her insulin. She was directed to come to the ER Yesterday. She came today. Was found to have a uti. Will admit her for treatment Hospital Course: Patient was admitted for UTI. She was found to have ESBL E coli. Started on meropenem. Was sensitive to bactrim and nitrofurantin. The patient family wondered about sNF. The patient is non compliant with her self care. Such as administering her insulin. Had a conversation with her son about her not being very mobile or good at taking her meds at home. He has 2 small children and has difficulty caring for her. I have heard this from both her mother and sister as well. The patient was assessed for sNF. Was not accepted by insurance. We will send her home with home health Vital Signs/Physical Exam: Temp Pulse Resp BP Pulse Ox 97.3 F 77 16 142/78 H 97 08/23/22 08:13 08/23/22 08:13 08/23/22 08:13 08/23/22 08:13 08/23/22 08:13 General: Alert, In no apparent distress HEENT: Atraumatic, PERRLA, EOMI Neck: Supple, JVD not distended Respiratory: Clear to auscultation bilaterally, Normal air movement Cardiovascular: Regular rate/rhythm, Normal S1 S2 Gastrointestinal: Normal bowel sounds, No tenderness Musculoskeletal: No tenderness Integumentary: No rashes Neurological: Normal speech, Normal tone, Normal affect Lymphatics: No axilla or inguinal lymphadenopathy Laboratory Data at Discharge: WBC 6.40 K/uL (4.3-10.9) 08/22/22 05:46 Hgb 9.4 g/dL (12.0-15.0) L 08/22/22 05:46 Hct 29.2 % (36.0-45.0) L 08/22/22 05:46 Plt Count 334 K/uL (152-406) 08/22/22 05:46 Sodium 140 mmol/L (136-145) 08/22/22 05:46 Potassium 3.2 mmol/L (3.5-5.1) L 08/22/22 05:46 BUN 8 mg/dL (7-18) 08/22/22 05:46 Creatinine 0.36 mg/dL (0.55-1.02) L 08/22/22 05:46 Glucose 151 mg/dL (74-106) H 08/22/22 05:46 Total Bilirubin 0.2 mg/dL (0.2-1.0) 08/22/22 05:46 AST 31 U/L (15-37) 08/22/22 05:46 ALT 24 U/L (13-56) 08/22/22 05:46 Alkaline Phosphatase 115 U/L (45-117) D 08/22/22 05:46 Lipase 75 U/L (73-393) 08/19/22 12:27 Home Medications: Folic Acid 1 mg PO DAILY 08/19/22 Insulin Glargine,Hum.rec.anlog [Yolie Kat] 28 unit SQ DAILY 08/19/22 Metformin HCl [Metformin HCl ER] 750 mg PO DAILY 08/19/22 Pantoprazole [Protonix Tab*] 40 mg PO DAILY 08/19/22 Semaglutide [Ozempic] 0.5 mg pe SQ EVERY 7TH DAY 08/19/22 Nitrofurantoin Macrocrystal [Macrodantin] 100 mg PO BID 5 Days #10 tab 08/23/22 Smz./Tmp. [Bactrim Ds 800 MG/160 MG] 1 tab PO BID 5 Days #10 tab 08/23/22 New Medications: Smz./Tmp. [Bactrim Ds 800 MG/160 MG] 1 tab PO BID 5 Days #10 tab Nitrofurantoin Macrocrystal [Macrodantin] 100 mg PO BID 5 Days #10 tab Diet: ADA Activity: Ad amalia Followup: Michael Spence MD [Primary Care Provider] - Physician Review: Patient Assessed, Agree with Above Assessment and Plan Time spent managing pt's care (in minutes): 40
[2022-08-23 10:17] VITALS: O2SAT 97
== END 2022-08-23 12:41 | disposition home health service (06) | DRG 690 ==
LOC: ER 12:13 → ERHOLD 17:24 → 2ND 19:45
PROVIDERS: ADMIT Internal Medicine; ATTEND Internal Medicine
DX: N30.00 Acute cystitis without hematuria (principal); Z16.12 Extended spectrum beta lactamase (ESBL) resistance; E11.43 Type 2 diabetes mellitus with diabetic autonomic (poly)neuropathy; K31.84 Gastroparesis; F19.19 Other psychoactive substance abuse with unspecified psychoactive substance-induced disorder; E86.0 Dehydration; B96.20 Unspecified Escherichia coli [E. coli] as the cause of diseases classified elsewhere; F31.9 Bipolar disorder, unspecified; R11.10 Vomiting, unspecified; K59.00 Constipation, unspecified; R55 Syncope and collapse
CPT/HCPCS: 36415; 74177; 80053; 81003; 81015; 82947; 83036; 83690; 85025; 87077; 87086; 87088; 87186; 87811; 93005; 96361; 96365; 96366; 96375; 97116; 97161; 97530; 99285; J0744; J1650; J1815; J2185; J2405; J2550; J7030; J7050; Q9967

== ENCOUNTER 2022-10-22 10:46 | Emergency (ER) | payer OTHER ==
[2022-10-22] MEDS ORDERED: NA CHLORIDE 0.9% 1,000 ML ONE (11:04)
[2022-10-22] MEDS ORDERED: FAMOTIDINE 20 MG/2 ML VIAL IV ONE (11:04)
[2022-10-22 11:22] LABS: Absolute Lymphocytes (CBC) 3.5 K/uL (0.7-4.9); Hematocrit 42.6 % (36.0-45.0); Lymphocytes % 24.8 % (15.3-44.8); MCV 82.1 fL (80-100); MPV 8.6 fL (7.6-11.3); RBC Red Blood Cell Count 5.19 M/uL (3.86-4.86)
--- OUTSIDE RECORDS SUMMARY | 2022-10-22 11:22 | XMS REPORT | Continuity of Care Document ---
:1965 Author Organization [facility] t Address [address] [place] [address] Care Team Providers Name Role Phone MUSA HOLDEN Primary Care Physician Unavailable JACKSON RODRIGUEZ Attending Clinician Unavailable ZEKE BETTENCOURT Attending Clinician Unavailable NEETU HUERTA Attending Clinician Unavailable RADHIKA SAENZ Attending Clinician Unavailable ALEENA KAPOOR Attending Clinician Unavailable CORAZON LÓPEZ Attending Clinician Unavailable FRANCOIS SOLER Attending Clinician Unavailable LAB90 Attending Clinician Unavailable MD BRENNAN Attending Clinician Unavailable LINWOOD MORTON Attending Clinician Unavailable Neftali Levi Attending Clinician NEFTALI LEVI Attending Clinician Unavailable ALIZA TONEY Attending Clinician Unavailable Aliza Toney Attending Clinician YAHAIRA SALCEDO Attending Clinician Unavailable Britney Guzmán Attending Clinician BRITNEY GUZMÁN Attending Clinician Unavailable JUANA RODRIGUEZ Attending Clinician Unavailable Juana Rodriguez DO Attending Clinician MUSA HOLDEN Attending Clinician Unavailable Musa Florian Attending Clinician [phone] Doctor Unassigned, [place] Attending Clinician Unavailable Leandro Madrigal DO Attending Clinician Visit, [facility] Nurse Attending Clinician Unavailable MARYBEL CHAVIRA Attending Clinician Unavailable Pcp, Patient Does Not Have A Attending Clinician [phone] Tracey Garcia Admitting Clinician TRACEY GARCIA Admitting Clinician Unavailable MAX GUADALUPE Admitting Clinician Unavailable Max Guadalupe Admitting Clinician JUANA RODRIGUEZ Admitting Clinician Unavailable MARYBEL CHAVIRA Admitting Clinician Unavailable Payers Payer Name Policy Type Policy Number Effective Date Expiration Date S ource [employer] MEDICARE [id number] 2021 ADVANTAGE PPO 00:00:00 HU[employer]NA MA GOLD 7 [id number] 2022 PLUS 33 D-SNP OA 00:00:00 HUMANA GOLD PLS [id number] 2021 HMO 00:00:00 MEDICAID OF [place] [id number] 2022 00:00:00 [facility] JIGAR [id number] 2020 PLUS CLASSIC/VALUE 00:00:00 Problems Condition Condition Condition Status Onset Resolution Last Treating Co mments Source Name Details Category Date Date Treatment Clinician Date Chronic Chronic Disease Active Rachna bilateral bilateral 1-11 Seyb old low back low back 00:00: - pain pain 00 Externa without without l sciatica sciatica Type 2 Type 2 Disease Active Rachna diabetes diabetes 1-11 Seybol d mellitus mellitus 00:00: - with with 00 Externa hyperglyce hyperglyce l dwight, with dwight, with long-term long-term current current use of use of insulin insulin Primary Primary Disease Active Rachna hypertensi hypertensi 1-11 Se ybold on on 00:00: - 00 Externa l Gastroesop Gastroesop Disease Active K elsey hageal hageal - Sey[place] reflux reflux 00:00: - disease disease 00 Externa without without l esophagiti esophagiti s s 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 Seybol d residual residual 00:00: - deficit deficit 00 Externa l History of History of Disease Active K elsey spinal spinal 1- Seybold fracture fracture 00:00: - 00 Externa l History of History of Disease Active K elsey osteomyeli osteomyeli - Se ybold tis tis 00:00: - 00 Externa l POSSIBLE POSSIBLE Diagnosis Active 2021-092022-07-05 Memoria PERFORATED PERFORATED 0-21 21:52:00 l ESOPHAGUS ESOPHAGUS 00:00: Herm alberto Active 00 06/23/2022 [facility] [place] [facility] UPPER UPPER Diagnosis Active 2021-092022-06-30 Mem oria GASTROINTE GASTROINTE 0-19 21:46:00 l STINAL STINAL 00:00: Dayo BLEED;ESOP BLEED;ESOP 00 HAGEAL HAGEAL Active 06/21/[address] [facility] GI BLEED GI BLEED Diagnosis Active 2021-092022-06-21 Memoria UPPER UPPER 0-19 04:10:00 l Active 00:00: [place] 06/21/[address] [facility] VOMITING VOMITING Diagnosis Active 2021-092022-07-04 Memoria BLOOD BLOOD 0-18 21:48:00 l Active 00:00: Dayo 06/20/[address] [place] [address] Nausea and Nausea and Disease Active 2019- U nivers vomiting vomiting 4-19 ity of 00:00: [place] [address] [facility] Acute Acute Disease Active 2018- Univers gastroente gastroente 4-18 it y of ritis ritis 00:00: [place] [address] [facility] ANTHONY (acute ANTHONY (acute Disease Active 2019- U nivers kidney kidney 3-19 ity of injury) injury) 00:00: [place] [address] [facility] Branch DKA DKA Disease Active 2018- Univers (diabetic (diabetic 2-18 ity of [place] is[place] 00 [facility] Screening Screening Disease Active Overview: Univers for STD for STD 06-01 Formattin ity o f (sexually (sexually 00:00: g of this [place] transmitte transmitte 00 note Me dical d disease) d disease) might be Branch different from the original. ICD10 Diagnosis Term Structures Mechanic Utility Essential Essential Disease Active Overview: Univers hypertensi hypertensi 06-01 Formattin ity of on on 00:00: g of this [place] 00 note Medical might be Branch different from the original. ICD10 Diagnosis Term Structures Mechanic Utility Need for Need for Disease Active [...] different from the original. ICD10 Diagnosis Term Structures Mechanic Utility Obesity Obesity Disease Active Overview: Univ ers 06-01 Formattin ity of 00:00: g of this [place] 00 note Medical might be Branch different from the original. ICD10 Diagnosis Term Structures Mechanic Utility Yeast Yeast Disease Active Univers infection infection 06-01 ity of of the of the 00:00: [place] vagina vagina 00 Medical Branch Acute Acute Problem Active 2022-07-04 Memor ia posthemorr posthemorr 22:14:18 l hagic hagic [place] anemia anemia (disorder) (disorder) Active Problem 07/04/2022 [facility] [place] [facility] Acute Acute Problem Active 2022-07-04 Memor ia urinary urinary 22:14:18 l tract tract [place] infection infection (disorder) (disorder) Active Problem 07/04/2022 [facility] [place] [facility], [facility] Diabetes Diabetes Problem Active 2022-07-04 Memoria mellitus mellitus 22:14:18 l (disorder) (disorder) He rmann Active Problem 07/04/2022 [facility], [facility] Hypokalemi Hypokalem Problem Active 2022-07-04 Memoria a ia 22:14:18 l (disorder) (disorder) He rmann Active Problem 07/04/2022 [facility] [place] [facility], [place],[facility] Hypophosph Hypophosp Problem Active 2022-07-04 Memoria atemia hatemia 22:14:18 l (disorder) (disorder) He rmann Active Problem 07/04/2022 [facility] [place] [facility], [place],[facility] Moderate Moderate Problem Active 2022-07-04 Memoria protein-ca protein-ca 22:14:18 l christie Oshea malnutriti malnutriti on (weight on (weight for age for age 60-74% of 60-74% of standard) standard) (disorder) (disorder) Active Problem 07/04/2022 [facility] [place] [facility] ILLNESS, ILLNESS, Diagnosis Active 2022-06-21 Memoria UNSPECIFIE UNSPECIFIE 04:10:00 l D D Active Dayo [facility] GASTROINTE GASTROINT Diagnosis Active 2022-06-30 Memoria STINAL ESTINAL 21:46:00 l HEMORRHAGE HEMORRHAGE He rmann , , UNSPECIFIE UNSPECIFIE D D Active [facility] OTHER OTHER Diagnosis Active 2022-06-30 Mem oria SPECIFIED SPECIFIED 21:46:00 l DISEASE OF DISEASE OF He ann ESOPHAGUS ESOPHAGUS Active [facility] Illness Illness Diagnosis 2022-06-25 Memoria (finding) (finding) 22:47:29 l Diagnosis Dayo 06/25/[address] [facility] Allergies, Adverse Reactions, Alerts Allergy Allergy Status Severity Reaction(s) Onset Inactive Treating Comm ents Source Name Type Date Date Clinician NO KNOWN Drug Active Univers ALLERGIE Class ity of S [facility] Social History Social Habit Start Date Stop Date Quantity Comments Source Alcohol intake 2022-09-21 2022-09-21 Lifetime Rachna Loepz bold - 00:00:00 00:00:00 non-drinker External (finding) Tobacco use and 2022-09-13 2022-09-13 Smokeless tobacco Myron Campbellold - exposure 00:00:00 00:00:00 non-user External Social History 2022-06-21 2022-06-21 [facility] Olegario javid 08:35:01 08:35:01 Exposure to 2022-04-07 2022-04-17 Not sure University SARS-CoV-2 00:00:00 16:10:00 [facility] (event) Branch History of 2004-09-03 Cigarette Smoker [facility] of tobacco use 00:00:00 [facility] Sex Ass[birth year] At [birth year] Rachna Se ybold - 00:00:00 00:00:00 External Smoking Status Start Date Stop Date Source Never smoked tobacco Rachna Seyb old - External Tobacco smoking status 2022-06-21 08:34:33 Damontiffany Oshea Ex-smoker 2015-06-01 00:00:00 2015-06-01 00:00:00 [facility] of [facility] Medications Ordered Filled Start Stop Current Ordering Indication Dosage Frequency Signature Comments Components Source Medication Medication Date Date Medication? Clinician (SIG) Name Name Meloxicam Yes [id number] 15mg Take 1 K elsey 15 MG oral 1-31 tablet (15 Sey bold Tablet 00:00: mg total) - 00 by mouth Externa daily l Nitrofurant 2022- Yes [id number] 100mg Take 1 Rachna oin Monohyd 09-22 capsule Seyb old Macro 100 00:00: 05:59 (100 mg - MG oral 00 :00 total) by Externa Capsule mouth 2 l times daily for 5 days Insulin Yes [id number] 28U Inject 28 K elsey Glargine, 2 1-11 units into Se ybold Unit Dial, 00:00: the skin - (Toujeo Max 00 daily Externa SoloStar) l 300 UNIT/ML subcutaneou s Solution Pen-injecto r Tramadol Yes [id number] 50mg Q.5D Take 1 Ke lsey HCl 50 MG 1-11 tablet (50 Seyb old oral Tablet 00:00: mg total) - 00 by mouth 2 Externa times l daily as needed for pain Ondansetron Yes [id number] 4mg Q.[id number] Take 1 Rachna HCl 4 MG 1-11 [id number] tablet (4 Seybold oral Tablet 00:00: 3D mg total) - 00 by mouth Externa every 8 l hours as needed for nausea Insulin Yes [id number] 28U Inject 28 K elsey Glargine, 2 1-11 units into Se ybold Unit Dial, 00:00: the skin - (Toujeo Max 00 daily Externa SoloStar) l 300 UNIT/ML subcutaneou s Solution Pen-injecto r Tramadol 2022-0 Yes [id number] 50mg Q.5D Take 1 Ke lsey HCl 50 MG 1-11 tablet (50 Seyb old oral Tablet 00:00: mg total) - 00 by mouth 2 Externa times l daily as needed for pain Ondansetron 2022-0 Yes [id number] 4mg Q.[id number] Take 1 Rachna HCl 4 MG 1-11 [id number] tablet (4 Seybold oral Tablet 00:00: 3D mg total) - 00 by mouth Externa every 8 l hours as needed for nausea Insulin 2022-0 Yes [id number] 28U Inject 28 K elsey Glargine, 2 1-11 units into Se ybold Unit Dial, 00:00: the skin - (Toujeo Max 00 daily Externa SoloStar) l 300 UNIT/ML subcutaneou s Solution Pen-injecto r Tramadol 2022-0 Yes [id number] 50mg Q.5D Take 1 Ke lsey HCl 50 MG 1-11 tablet (50 Seyb old oral Tablet 00:00: mg total) - 00 by mouth 2 Externa times l daily as needed for pain Ondansetron 2022-0 Yes [id number] 4mg Q.[id number] Take 1 Rachna HCl 4 MG 1-11 [id number] tablet (4 Seybold oral Tablet 00:00: 3D mg total) - 00 by mouth Externa every 8 l hours as needed for nausea Insulin 2022-0 Yes [id number] 28U Inject 28 K elsey Glargine, 2 1-11 units into Se ybold Unit Dial, 00:00: the skin - (Toujeo Max 00 daily Externa SoloStar) l 300 UNIT/ML subcutaneou s Solution Pen-injecto r Tramadol 2022-0 Yes [id number] 50mg Q.5D Take 1 Ke lsey HCl 50 MG 1-11 tablet (50 Seyb old oral Tablet 00:00: mg total) - 00 by mouth 2 Externa times l daily as needed for pain Ondansetron 2022-0 Yes [id number] 4mg Q.[id number] Take 1 Rachna HCl 4 MG 09-13 [id number] tablet (4 Seybold oral Tablet 00:00: 3D mg total) - 00 by mouth Externa every 8 l hours as needed for nausea Lisinopril 2021-09 Yes 20mg Take 20 mg K elsey 20 MG oral 04 by mouth Seybo ld Tablet 00:00: daily - Externa l Lisinopril 2021-09 Yes 20mg Take 20 mg K elsey 20 MG oral 04 by mouth Seybo ld Tablet 00:00: daily - Externa l Lisinopril 2021-09 Yes 20mg Take 20 mg K elsey 20 MG oral 04 by mouth Seybo ld Tablet 00:00: daily Externa l Lisinopril 2021-09 Yes 20mg Take 20 mg K elsey 20 MG oral 04 by mouth Seybo ld Tablet 00:00: daily - Externa l Toujeo Max 2021-09- No 28U Inject 28 K elsey SoloStar 09-06-11 units into Seyb old 300 UNIT/ML 00:00: 00:00 the skin - subcutaneou 00 :00 once Externa s Solution l Pen-injecto r acetaminoph 2021-09 Yes 1,000 mg = Memoria en 500 mg 0-30 2 tab, PO, l oral 18:54: Q6H, PRN [place] tablet. 00 Fever, X 10 day, # 80 tab, 0 Refill(s), Pharmacy: [facility], 162.56, cm, 06/23/22 15:26:00 CDT, Height, 69.001, kg, 06/23/22 15:26:00 CDT, Weight acetaminoph 2021-09 Yes 1,000 mg = Memoria en 500 mg 0-30 2 tab, PO, l oral 18:54: Q6H, PRN Dayo tablet. 00 Fever, X 10 day, # 80 tab, 0 Refill(s), Pharmacy: [facility], 162.56, cm, 06/23/22 15:26:00 CDT, Height, 69.001, kg, 06/23/22 15:26:00 CDT, Weight acetaminoph 2022-1 Yes 1,000 mg = Memoria en 500 mg 0-30 2 tab, PO, l oral 18:54: Q6H, PRN [place] tablet. 00 Fever, X 10 day, # 80 tab, 0 Refill(s), Pharmacy: [facility], 162.56, cm, 06/23/22 15:26:00 CDT, Height, 69.001, kg, 06/23/22 15:26:00 CDT, Weight acetaminoph 2021-09 Yes 1,000 mg = Memoria en 500 mg 0-30 2 tab, PO, l oral 18:54: Q6H, PRN Dayo tablet. 00 Fever, X 10 day, # 80 tab, 0 Refill(s), Pharmacy: [facility], 162.56, cm, 06/23/22 15:26:00 CDT, Height, 69.001, kg, 06/23/22 15:26:00 CDT, Weight acetaminoph 2021-09 Yes 1,000 mg = Memoria en 500 mg 0-30 2 tab, PO, l oral 18:54: Q6H, PRN Dayo tablet. 00 Fever, X 10 day, # 80 tab, 0 Refill(s), Pharmacy: [facility], 162.56, cm, 06/23/22 15:26:00 CDT, Height, 69.001, kg, 06/23/22 15:26:00 CDT, Weight acetaminoph 2021-09 Yes 1,000 mg = Memoria en 500 mg 0-30 2 tab, PO, l oral 18:54: Q6H, PRN Dayo tablet. 00 Fever, X 10 day, # 80 tab, 0 Refill(s), Pharmacy: [facility], 162.56, cm, 06/23/22 15:26:00 CDT, Height, 69.001, kg, 06/23/22 15:26:00 CDT, Weight acetaminoph 2021-09 Yes 1,000 mg = Memoria en 500 mg 0-30 2 tab, PO, l oral 18:54: Q6H, PRN Dayo tablet. 00 Fever, X 10 day, # 80 tab, 0 Refill(s), Pharmacy: [facility], 162.56, cm, 06/23/22 15:26:00 CDT, Height, 69.001, kg, 06/23/22 15:26:00 CDT, Weight methocarbam 2021-09 Yes 500 mg = 1 Memoria ol 500 mg 0-30 tab, PO, l oral tablet 18:49: TID, X 14 H ermann 00 day, # 42 tab, 0 Refill(s), Pharmacy: [facility], 162.56, cm, 06/23/22 15:26:00 CDT, Height, 69.001, kg, 06/23/22 15:26:00 CDT, Weight methocarbam 2021-09 Yes 500 mg = 1 Memoria ol 500 mg 0-30 tab, PO, l oral tablet 18:49: TID, X 14 H ermann 00 day, # 42 tab, 0 Refill(s), Pharmacy: [facility], 162.56, cm, 06/23/22 15:26:00 CDT, Height, 69.001, kg, 06/23/22 15:26:00 CDT, Weight methocarbam 2021-09 Yes 500 mg = 1 Memoria ol 500 mg 0-30 tab, PO, l oral tablet 18:49: TID, X 14 H ermann 00 day, # 42 tab, 0 Refill(s), Pharmacy: [facility], 162.56, cm, 06/23/22 15:26:00 CDT, Height, 69.001, kg, 06/23/22 15:26:00 CDT, Weight methocarbam 2021-09 Yes 500 mg = 1 Memoria ol 500 mg 0-30 tab, PO, l oral tablet 18:49: TID, X 14 H ermann 00 day, # 42 tab, 0 Refill(s), Pharmacy: [facility], 162.56, cm, 06/23/22 15:26:00 CDT, Height, 69.001, kg, 06/23/22 15:26:00 CDT, Weight methocarbam 2021-09 Yes 500 mg = 1 Memoria ol 500 mg 0-30 tab, PO, l oral tablet 18:49: TID, X 14 H ermann 00 day, # 42 tab, 0 Refill(s), Pharmacy: [facility], 162.56, cm, 06/23/22 15:26:00 CDT, Height, 69.001, kg, 06/23/22 15:26:00 CDT, Weight methocarbam 2021-09 Yes 500 mg = 1 Memoria ol 500 mg 0-30 tab, PO, l oral tablet 18:49: TID, X 14 H erm day, # 42 tab, 0 Refill(s), Pharmacy: [facility], 162.56, cm, 06/23/22 15:26:00 CDT, Height, 69.001, kg, 06/23/22 15:26:00 CDT, Weight methocarbam 2021-09 Yes 500 mg = 1 Memoria ol 500 mg 0-30 tab, PO, l oral tablet 18:49: TID, X 14 H erm day, # 42 tab, 0 Refill(s), Pharmacy: [facility], 162.56, cm, 06/23/22 15:26:00 CDT, Height, 69.001, kg, 06/23/22 15:26:00 CDT, Weight ceFAZolin 2 2021-09 Yes IV, Memori a g/20 mL 0-29 Q8H-06, 0 l intravenous 21:18: Refill(s) H ermann 00 folic acid 2021-09 Yes 1 mg = 1 Mem oria 1 mg oral 0-29 tab, PO, l tablet 21:18: Daily, # Dayo 00 90 tab, 0 Refill(s), Pharmacy: [facility], 162.56, cm, 06/23/22 15:26:00 CDT, Height, 69.001, kg, 06/23/22 15:26:00 CDT, Weight pantoprazol 2021-09 Yes 40 mg = 1 M emoria e 40 mg 0-29 tab, PO, l oral 21:18: Daily, # Hewitt enteric 00 90 tab, 0 coated Refill(s), tablet Pharmacy: [facility], 162.56, cm, 06/23/22 15:26:00 CDT, Height, 69.001, kg, 06/23/22 15:26:00 CDT, Weight ceFAZolin 2 2021-09 Yes IV, Memori a g/20 mL 0-29 Q8H-06, 0 l intravenous 21:18: Refill(s) H ermann solution 00 folic acid 2021-09 Yes 1 mg = 1 Mem oria 1 mg oral 0-29 tab, PO, l tablet 21:18: Daily, # Dayo 00 90 tab, 0 Refill(s), Pharmacy: [facility], 162.56, cm, 06/23/22 15:26:00 CDT, Height, 69.001, kg, 06/23/22 15:26:00 CDT, Weight pantoprazol 2021-09 Yes 40 mg = 1 M emoria e 40 mg 0-29 tab, PO, l oral 21:18: Daily, # Hew[place] enteric 00 90 tab, 0 coated Refill(s), tablet Pharmacy: [facility], 162.56, cm, 06/23/22 15:26:00 CDT, Height, 69.001, kg, 06/23/22 15:26:00 CDT, Weight ceFAZolin 2 2021-09 Yes IV, Memori a g/20 mL 0-29 Q8H-06, 0 l intravenous 21:18: Refill(s) H ermann solution folic acid 2021-09 Yes 1 mg = 1 Mem oria 1 mg oral 0-29 tab, PO, l tablet 21:18: Daily, # Hewitt 00 90 tab, 0 Refill(s), Pharmacy: [facility], 162.56, cm, 06/23/22 15:26:00 CDT, Height, 69.001, kg, 06/23/22 15:26:00 CDT, Weight pantoprazol 2021-09 Yes 40 mg = 1 M emoria e 40 mg 0-29 tab, PO, l oral 21:18: Daily, # [place] enteric 00 90 tab, 0 coated Refill(s), tablet Pharmacy: [facility], 162.56, cm, 06/23/22 15:26:00 CDT, Height, 69.001, kg, 06/23/22 15:26:00 CDT, Weight ceFAZolin 2 2021-09 Yes IV, Memori a g/20 mL 0-29 Q8H-06, 0 l intravenous 21:18: Refill(s) H ermann solution 00 folic acid 2021-09 Yes 1 mg = 1 Mem oria 1 mg oral 0-29 tab, PO, l tablet 21:18: Daily, # Dayo 00 90 tab, 0 Refill(s), Pharmacy: [facility], 162.56, cm, 06/23/22 15:26:00 CDT, Height, 69.001, kg, 06/23/22 15:26:00 CDT, Weight ceFAZolin 2 2021-09 Yes IV, Memori a g/20 mL 0-29 Q8H-06, 0 l intravenous 21:18: Refill(s) H ermann solution 00 folic acid 2021-09 Yes 1 mg = 1 Mem oria 1 mg oral 0-29 tab, PO, l tablet 21:18: Daily, # Hewitt 00 90 tab, 0 Refill(s), Pharmacy: [facility], 162.56, cm, 06/23/22 15:26:00 CDT, Height, 69.001, kg, 06/23/22 15:26:00 CDT, Weight pantoprazol 2021-09 Yes 40 mg = 1 M emoria e 40 mg 0-29 tab, PO, l oral 21:18: Daily, # Dayo enteric 00 90 tab, 0 coated Refill(s), tablet Pharmacy: [facility], 162.56, cm, 06/23/22 15:26:00 CDT, Height, 69.001, kg, 06/23/22 15:26:00 CDT, Weight pantoprazol 2021-09 Yes 40 mg = 1 M emoria e 40 mg 0-29 tab, PO, l oral 21:18: Daily, # [place] enteric 00 90 tab, 0 coated Refill(s), tablet Pharmacy: [facility], 162.56, cm, 06/23/22 15:26:00 CDT, Height, 69.001, kg, 06/23/22 15:26:00 CDT, Weight ceFAZolin 2 2021-09 Yes IV, Memori a g/20 mL 0-29 Q8H-06, 0 l intravenous 21:18: Refill(s) H ermann solution 00 folic acid 2021-09 Yes 1 mg = 1 Mem oria 1 mg oral 0-29 tab, PO, l tablet 21:18: Daily, # Hewitt 00 90 tab, 0 Refill(s), Pharmacy: [facility], 162.56, cm, 06/23/22 15:26:00 CDT, Height, 69.001, kg, 06/23/22 15:26:00 CDT, Weight pantoprazol 2021-09 Yes 40 mg = 1 M emoria e 40 mg 0-29 tab, PO, l oral 21:18: Daily, # Hew[place] enteric 00 90 tab, 0 coated Refill(s), tablet Pharmacy: [facility], 162.56, cm, 06/23/22 15:26:00 CDT, Height, 69.001, kg, 06/23/22 15:26:00 CDT, Weight ceFAZolin 2 2021-09 Yes IV, Memori a g/20 mL 0-29 Q8H-06, 0 l intravenous 21:18: Refill(s) H ermann solution folic acid 2021-09 Yes 1 mg = 1 Mem oria 1 mg oral 0-29 tab, PO, l tablet 21:18: Daily, # Hewitt 00 90 tab, 0 Refill(s), Pharmacy: [facility], 162.56, cm, 06/23/22 15:26:00 CDT, Height, 69.001, kg, 06/23/22 15:26:00 CDT, Weight pantoprazol 2021-09 Yes 40 mg = 1 M emoria e 40 mg 0-29 tab, PO, l oral 21:18: Daily, # Dayo enteric 00 90 tab, 0 coated Refill(s), tablet Pharmacy: [facility], 162.56, cm, 06/23/22 15:26:00 CDT, Height, 69.001, kg, 06/23/22 15:26:00 CDT, Weight Folic Acid 2021-09 Yes 1mg Take 1 mg Ke lsey 1 MG oral 0-29 by mouth Seybol d tablet 00:00: daily - 00 Externa l Pantoprazol 2021-09 Yes 40mg Take 40 mg Rachna e Sodium 40 0-29 by mouth Seyb old MG oral 00:00: daily - Tablet 00 Externa Delayed l Response Folic Acid 2021-09 Yes 1mg Take 1 mg Ke lsey 1 MG oral 0-29 by mouth Seybol d tablet 00:00: daily - 00 Externa l Pantoprazol 2021-09 Yes 40mg Take 40 mg Rachna e Sodium 40 0-29 by mouth Seyb old MG oral 00:00: daily - Tablet Externa Delayed l Response Folic Acid 2021-09 Yes 1mg Take 1 mg Ke lsey 1 MG oral 0-29 by mouth Seybol d tablet 00:00: daily 00 Externa l Pantoprazol 2021-09 Yes 40mg Take 40 mg Rachna e Sodium 40 0-29 by mouth Seyb old MG oral 00:00: daily - Tablet Externa Delayed l Response Folic Acid 2021-09 Yes 1mg Take 1 mg Ke lsey 1 MG oral 0-29 by mouth Seybol d tablet 00:00: daily Externa l Pantoprazol 2021-09 Yes 40mg Take 40 mg Rachna e Sodium 40 0-29 by mouth Seyb old MG oral 00:00: daily - Tablet 00 Externa Delayed l Response Adult 2021-09 Yes Notes: Memoria Parenteral 0-24 Must use l Nutrition 03:00: 1.2 micron He [employer] Custom - 00 filter AND Peripheral Lipids [...] Duration: 30 day, Stop date: 07/25/22 14:51:00 COMMODITY ANALYST, 0 glucagon 2021-09 Yes 1 mg, Memoria 0-23 Route: IM, l 20:52: Drug form: PDR/INJ, PRN, Dosing Weight 69.001, kg, PRN Blood Glucose Results, Start date: 06/25/22 15:52:00 CDT, Duration: 30 day, Stop date: 07/25/22 14:51:00 COMMODITY ANALYST, 0 insulin 2021-09 Yes Notes: Memoria lispro 0-23 (Same as: l 20:52: Humalog) Roll in palms of hands gently; Do not shake vigorously . WASTE: F/P - Black; E - Municipal Trash Bin Stable for 28 days at room temperatur e. 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 ANALYST, 0 glucagon 2021-09 Yes 1 mg, Memoria 0-23 Route: IM, l 20:52: Drug form: Hewitt 00 PDR/INJ, PRN, Dosing Weight 69.001, kg, PRN Blood Glucose Results, Start date: 06/25/22 15:52:00 CDT, Duration: 30 day, Stop date: 07/25/22 14:51:00 COMMODITY ANALYST, 0 insulin 2021-09 Yes Notes: Memoria lispro 0-23 (Same as: l 20:52: Humalog) Roll in palms of hands gently; Do not shake vigorously . WASTE: F/P - Black; E - Municipal Trash Bin Stable for 28 days at room temperatur e. 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 ANALYST, 0 glucagon 2021-09 Yes 1 mg, Memoria 0-23 Route: IM, l 20:52: Drug form: Hewitt 00 PDR/INJ, PRN, Dosing Weight 69.001, kg, PRN Blood Glucose Results, Start date: 06/25/22 15:52:00 CDT, Duration: 30 day, Stop date: 07/25/22 14:51:00 COMMODITY ANALYST, 0 insulin 2021-09 Yes Notes: Memoria lispro [...] Duration: 30 day, Stop date: 07/25/22 14:51:00 COMMODITY ANALYST, 0 glucagon 2021-09 Yes 1 mg, Memoria 0-23 Route: IM, l 20:52: Drug form: [place] 00 PDR/INJ, PRN, Dosing Weight 69.001, kg, PRN Blood Glucose Results, Start date: 06/25/22 15:52:00 CDT, Duration: 30 day, Stop date: 07/25/22 14:51:00 COMMODITY ANALYST, 0 insulin 2021-09 Yes Notes: Memoria lispro [...] 0-23 25 mL, l (D50W) 20:52: Route: [place] 00 IVP, Drug Form: INJ, Dosing Weight 69.001, kg, PRN, PRN Blood Glucose Results, Start date: 06/25/22 15:52:00 CDT, Duration: 30 day, Stop date: 07/25/22 14:51:00 COMMODITY ANALYST, 0 glucagon 2021-09 Yes 1 mg, Memoria 0-23 Route: IM, l 20:52: Drug form: [place] 00 PDR/INJ, PRN, Dosing Weight 69.001, kg, PRN Blood Glucose Results, Start date: 06/25/22 15:52:00 CDT, Duration: 30 day, Stop date: 07/25/22 14:51:00 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 WASTE: F/P - Black; E - Municipal Trash Bin Stable for 28 days at room temperatur e. 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 WASTE: F/P - Black; E - Municipal Trash Bin Stable for 28 days at room temperatur e. Expires in days from ____Date potassium 2021-09 No Notes: Memori a chloride 0-23 (Same as: l 13:00: KCL) [place] 00 Infuse over 2 hours. potassium 2021-09 No Notes: Memori a chloride 0-23 (Same as: l 13:00: KCL) [place] 00 Infuse over 2 hours. potassium 2021-09 No Notes: Memori a chloride 0-23 (Same as: l 13:00: KCL) [place] 00 Infuse over 2 hours. potassium 2021-09 No Notes: Memori a chloride 0-23 (Same as: l 13:00: KCL) [place] 00 Infuse over 2 hours. potassium 2021-09 No Notes: Memori a chloride 0-23 (Same as: l 13:00: KCL) [place] 00 Infuse over 2 hours. potassium 2021-09 No Notes: Memori a chloride 0-23 (Same as: l 13:00: KCL) [place] 00 Infuse over 2 hours. potassium 2021-09 No Notes: [facility]ori a chloride 0-23 (Same as: l 13:00: KCL) [place] 00 Infuse over 2 hours. Adult 2021-09 No 1 mL, Memoria Parenteral 0-23 Rate: l Nutrition 03:00: Titrate, Herm alebrto Dosing Peripheral Weight (PPN not 69.001, TPN) [...] 22:00:00 CDT, Duration: 24 hr, Stop date: 06/25/22:59:00 CDT, Replace Every: 24 hr Adult 2021-09 [...] 22:00:00 CDT, Duration: 24 hr, Stop date: 06/25/22:59:00 CDT, Replace Every: 24 hr Adult 2021-09 [...] moria 0-22 infuse l 23:00: over 2.5 [place] 00 hours For adult patients only: Round to nearest 250 mg per Medical Staff approval MEDICATION WASTE Product Size: 1000 mg Product Wasted: ___ mg vancomycin 2021-09 Yes 2000 mg: Me moria 0-22 infuse l 23:00: over 2.5 [place] 00 hours For adult patients only: Round to nearest 250 mg per Medical Staff approval MEDICATION WASTE Product Size: 1000 mg Product Wasted: ___ mg vancomycin 2021-09 Yes 2000 mg: Me moria 0-22 infuse l 23:00: over 2.5 [place] 00 hours For adult patients only: Round to nearest 250 mg per Medical Staff approval MEDICATION WASTE Product Size: 1000 mg Product Wasted: ___ mg vancomycin 2021-09 Yes 2000 mg: Me moria 0-22 infuse l 23:00: over 2.5 [place] 00 hours For adult patients only: Round to nearest 250 mg per Medical Staff approval MEDICATION WASTE Product Size: 1000 mg Product Wasted: ___ mg vancomycin 2021-09 Yes 2000 mg: Me moria 0-22 infuse l 23:00: over 2.5 [place] 00 hours For adult patients only: Round to nearest 250 mg per Medical Staff approval MEDICATION WASTE Product Size: 1000 mg Product Wasted: ___ mg vancomycin 2021-09 Yes 2000 mg: Me moria 0-22 infuse l 23:00: over 2.5 [place] 00 hours For adult patients only: Round to nearest 250 mg per Medical Staff approval MEDICATION WASTE Product Size: 1000 mg Product Wasted: ___ mg vancomycin 2021-09 Yes 2000 mg: Me moria 0-22 infuse l 23:00: over 2.5 [place] 00 hours For adult patients only: Round to nearest 250 mg per Medical Staff approval MEDICATION WASTE Product Size: 1000 mg Product Wasted: ___ mg D5LR 1,000 2021-09 No 1,000 mL, Me moria mL 0-22 Rate: 100 l 18:52: ml/hr, [place] 00 Infuse over: 10 hr, Route: IV, Dosing Weight 69.001 kg, Total Volume: 1,000, Start date: 06/24/22 13:52:00 CDT, Duration: 30 day, Stop date: 07/24/22 13:51:00 COMMODITY ANALYST, BSA: 1.78 m2, 0 D5LR 1,000 2021-09 No 1,000 mL, Me moria mL 0-22 Rate: 100 l 18:52: ml/hr, [place] 00 Infuse over: 10 hr, Route: IV, Dosing Weight 69.001 kg, Total Volume: 1,000, Start date: 06/24/22 13:52:00 CDT, Duration: 30 day, Stop date: 07/24/22 13:51:00 COMMODITY ANALYST, BSA: 1.78 m2, 0 D5LR 1,000 2021-09 No 1,000 mL, Me moria mL 0-22 Rate: 100 l 18:52: ml/hr, [place] 00 Infuse over: 10 hr, Route: IV, Dosing Weight 69.001 kg, Total Volume: 1,000, Start date: 06/24/22 13:52:00 CDT, Duration: 30 day, Stop date: 07/24/22 13:51:00 COMMODITY ANALYST, BSA: 1.78 m2, 0 D5LR 1,000 2021-09 No 1,000 mL, Me moria mL 0-22 Rate: 100 l 18:52: ml/hr, [place] 00 Infuse over: 10 hr, Route: IV, Dosing Weight 69.001 kg, Total Volume: 1,000, Start date: 06/24/22 13:52:00 CDT, Duration: 30 day, Stop date: 07/24/22 13:51:00 COMMODITY ANALYST, BSA: 1.78 m2, 0 D5LR 1,000 2021-09 No 1,000 mL, Me moria mL 0-22 Rate: 100 l 18:52: ml/hr, [place] 00 Infuse over: 10 hr, Route: IV, Dosing Weight 69.001 kg, Total Volume: 1,000, Start date: 06/24/22 13:52:00 CDT, Duration: 30 day, Stop date: 07/24/22 13:51:00 COMMODITY ANALYST, BSA: 1.78 m2, 0 D5LR 1,000 2021-09 No 1,000 mL, Me moria mL 0-22 Rate: 100 l 18:52: ml/hr, [place] 00 Infuse over: 10 hr, Route: IV, Dosing Weight 69.001 kg, Total Volume: 1,000, Start date: 06/24/22 13:52:00 CDT, Duration: 30 day, Stop date: 07/24/22 13:51:00 COMMODITY ANALYST, BSA: 1.78 m2, 0 D5LR 1,000 2021-09 No 1,000 mL, Me moria mL 0-22 Rate: 100 l 18:52: ml/hr, [place] 00 Infuse over: 10 hr, Route: IV, Dosing Weight 69.001 kg, Total Volume: 1,000, Start date: 06/24/22 13:52:00 CDT, Duration: 30 day, Stop date: 07/24/22 13:51:00 COMMODITY ANALYST, BSA: 1.78 m2, 0 D5W 1,000 2021- No 1,000 mL, Mem oria mL 0-22 Rate: 125 l 18:09: ml/hr, [place] 00 Infuse over: 8 hr, Route: IV, Dosing Weight 69.001 kg, Total Volume: 1,000, Start date: 06/24/22 13:09:00 CDT, Duration: 30 day, Stop date: 07/24/22 13:08:00 COMMODITY ANALYST, BSA: 1.78 m2, 0 D5W 1,000 2021- No 1,000 mL, Mem oria mL 0-22 Rate: 125 l 18:09: ml/hr, [place] 00 Infuse over: 8 hr, Route: IV, Dosing Weight 69.001 kg, Total Volume: 1,000, Start date: 06/24/22 13:09:00 CDT, Duration: 30 day, Stop date: 07/24/22 13:08:00 COMMODITY ANALYST, BSA: 1.78 m2, 0 D5W 1,000 2021-09 No 1,000 mL, Mem oria mL 0-22 Rate: 125 l 18:09: ml/hr, [place] 00 Infuse over: 8 hr, Route: IV, Dosing Weight 69.001 kg, Total Volume: 1,000, Start date: 06/24/22 13:09:00 CDT, Duration: 30 day, Stop date: 07/24/22 13:08:00 COMMODITY ANALYST, BSA: 1.78 m2, 0 D5W 1,000 2021-09 No 1,000 mL, Mem oria mL 0-22 Rate: 125 l 18:09: ml/hr, [place] 00 Infuse over: 8 hr, Route: IV, Dosing Weight 69.001 kg, Total Volume: 1,000, Start date: 06/24/22 13:09:00 CDT, Duration: 30 day, Stop date: 07/24/22 13:08:00 COMMODITY ANALYST, BSA: 1.78 m2, 0 D5W 1,000 2021-09 No 1,000 mL, Mem oria mL 0-22 Rate: 125 l 18:09: ml/hr, [place] 00 Infuse over: 8 hr, Route: IV, Dosing Weight 69.001 kg, Total Volume: 1,000, Start date: 06/24/22 13:09:00 CDT, Duration: 30 day, Stop date: 07/24/22 13:08:00 COMMODITY ANALYST, BSA: 1.78 m2, 0 D5W 1,000 2021-09 No 1,000 mL, Mem oria mL 0-22 Rate: 125 l 18:09: ml/hr, [place] 00 Infuse over: 8 hr, Route: IV, Dosing Weight 69.001 kg, Total Volume: 1,000, Start date: 06/24/22 13:09:00 CDT, Duration: 30 day, Stop date: 07/24/22 13:08:00 COMMODITY ANALYST, BSA: 1.78 m2, 0 D5W 1,000 2021-09 No 1,000 mL, Mem oria mL 0-22 Rate: 125 l 18:09: ml/hr, [place] 00 Infuse over: 8 hr, Route: IV, Dosing Weight 69.001 kg, Total Volume: 1,000, Start date: 06/24/22 13:09:00 CDT, Duration: 30 day, Stop date: 07/24/22 13:08:00 COMMODITY ANALYST, BSA: 1.78 m2, 0 potassium 2021-09 No Notes: Memori a chloride 0-22 (Same as: l 14:00: KCL) [place] 00 Infuse over 2 hours. folic acid 2021-09 Yes Notes: Memor ia + Sodium 0-22 (Same as: l Chloride 14:00: Folvite) Monica nn 0.9% IV 50 00 mL polyethylen 2021-09 Yes Notes: Yung ami e glycol 0-22 Dissolve l 3350 14:00: in 8 oz of [place] 00 water or juice. (Same as: Miralax) potassium 2021-09 No Notes: Memori a chloride 0-22 (Same as: l 14:00: KCL) [place] 00 Infuse over 2 hours. folic acid 2021-09 Yes Notes: Memor ia + Sodium 0-22 (Same as: l Chloride 14:00: Folvite) Monica nn 0.9% IV 50 00 mL polyethylen 2021-09 Yes Notes: Yung ami e glycol 0-22 Dissolve l 3350 14:00: in 8 oz of [place] 00 water or juice. (Same as: Miralax) [...] l 3350 14:00: in 8 oz of [place] 00 water or juice. (Same as: Miralax) [...] chloride 0-22 (Same as: l 14:00: KCL) [place] 00 Infuse over 2 hours. folic acid 2021-09 Yes Notes: Memor ia + Sodium 0-22 (Same as: l Chloride 14:00: Folvite) Monica nn 0.9% IV 50 00 mL polyethylen 2021-09 Yes Notes: Yung ami e glycol 0-22 Dissolve l 3350 14:00: in 8 oz of [place] 00 water or juice. (Same as: Miralax) potassium 2021-09 No Notes: Memori a chloride 0-22 (Same as: l 14:00: KCL) [place] 00 Infuse over 2 hours. folic acid [...] chloride 0-22 (Same as: l 14:00: KCL) [place] 00 Infuse over 2 hours. folic acid 2021-09 Yes Notes: Memor ia + Sodium 0-22 (Same as: l Chloride 14:00: Folvite) Monica nn 0.9% IV 50 00 mL polyethylen 2021-09 Yes Notes: Yung ami e glycol 0-22 Dissolve l 3350 14:00: in 8 oz of [place] 00 water or juice. (Same as: Miralax) Dilaudid 2021-09 Yes Notes: Memoria 0-22 Same as: l 13:46: Dilaudid [place] 00 Dilaudid 2021-09 Yes Notes: Memoria 0-22 Same as: l 13:46: Dilaudid [place] 00 Dilaudid 2021-09 Yes Notes: Memoria 0-22 Same as: l 13:46: Dilaudid [place] 00 Dilaudid 2021-09 Yes Notes: Memoria 0-22 Same as: l 13:46: Dilaudid [place] 00 Dilaudid 2021-09 Yes Notes: Memoria 0-22 Same as: l 13:46: Dilaudid [place] 00 Dilaudid 2021-09 Yes Notes: Memoria 0-22 Same as: l 13:46: Dilaudid [place] 00 Dilaudid 2021-09 Yes Notes: Memoria 0-22 Same as: l 13:46: Dilaudid [place] 00 Adult 2021-09 No 1 mL, Memoria [...] moria 0-22 infuse l 11:00: over 2.5 [place] 00 hours vancomycin 2021-09 No 2000 mg: Me moria 0-22 infuse l 11:00: over 2.5 [place] 00 hours vancomycin 2021-09 No 2000 mg: Me moria 0-22 infuse l 11:00: over 2.5 [place] 00 hours vancomycin 2021-09 No 2000 mg: Me moria 0-22 infuse l 11:00: over 2.5 [place] 00 hours vancomycin 2021-09 No 2000 mg: Me moria 0-22 infuse l 11:00: over 2.5 [place] 00 hours vancomycin 2021-09 No 2000 mg: Me moria 0-22 infuse l 11:00: over 2.5 [place] 00 hours senna 2021-09 Yes Notes: Memoria 0-22 (Same as: l 02:00: Senokot) [place] 00 senna 2021-09 Yes Notes: Memoria 0-22 (Same as: l 02:00: Senokot) [place] 00 senna 2021-09 Yes Notes: Memoria 0-22 (Same as: l 02:00: Senokot) [place] 00 senna 2021-09 Yes Notes: Memoria 0-22 (Same as: l 02:00: Senokot) senna 2021-09 Yes Notes: Memoria 0-22 (Same as: l 02:00: Senokot) [place] 00 senna 2021-09 Yes Notes: Memoria 0-22 (Same as: l 02:00: Senokot) [place] 00 senna 2021-09 Yes Notes: Memoria 0-22 (Same as: l 02:00: Senokot) [place] 00 Reglan 2021-09 Yes Notes: Memoria 0-21 (Same as: l 23:00: Reglan) [place] 00 Reglan 2021-09 Yes Notes: Memoria 0-21 (Same as: l 23:00: Reglan) [place] 00 Reglan 2021-09 Yes Notes: Memoria 0-21 (Same as: l 23:00: Reglan) [place] 00 Reglan 2021-09 Yes Notes: Memoria 0-21 (Same as: l 23:00: Reglan) [place] 00 Reglan 2021-09 Yes Notes: Memoria 0-21 (Same as: l 23:00: Reglan) [place] 00 Reglan 2021-09 Yes Notes: Memoria 0-21 (Same as: l 23:00: Reglan) [place] 00 Reglan 2021-09 Yes Notes: Memoria 0-21 (Same as: l 23:00: Reglan) cefepime + 2021-09 Yes Notes: Memor ia sterile 0-21 (Same As: l water 10 mL 21:00: Maxipime) H ermann 00 MEDICATION WASTE Product Size: 1000 mg Product [...] l water 10 mL 21:00: Maxipime) H ermann 00 MEDICATION WASTE Product Size: 1000 mg Product Wasted: ___ mg Flagyl 2021-09 Yes Notes: Memoria 0-21 (Same as: l 21:00: Flagyl) Avoid alcohol. vancomycin 2021-09 No 2001 mg: Me moria + Sodium 0-21 infuse l Chloride 21:00: over 2.5 Monica nn 0.9% IV 250 00 hours For mL adult patients only: Round to nearest 250 mg per Medical Staff approval MEDICATION WASTE Product Size: 1000 mg Product Wasted: ___ mg cefepime + 2021-09 Yes Notes: Memor ia sterile 0-21 (Same As: l water 10 mL 21:00: Maxipime) H ermann 00 MEDICATION WASTE Product Size: 1000 mg Product [...] Memoria 0-21 (Same as: l 21:00: Flagyl) [place] 00 Avoid alcohol. vancomycin 2021-09 No 2000 mg: [...] Memoria 0-21 (Same as: l 21:00: Flagyl) Dayo 00 Avoid alcohol. vancomycin 2021-09 No 2000 mg: Me moria + Sodium 0-21 infuse l Chloride 21:00: over 2.5 Monica nn 0.9% IV 250 00 hours For mL adult patients only: Round to nearest 250 mg per Medical Staff approval MEDICATION WASTE Product Size: 1000 mg Product Wasted: ___ mg Vancomycin 2021-09 Yes Notes: [facility] Pharmacy 0-21 Vancomycin l Dosing 20:27: Pharmacy [facility] Consult 14 Dosing Protocol PHARMAC Y USE ONLY Note: This is not a medication order. This is a consultati on order. Vancomycin 2021-09 Yes Notes: [facility] 0-21 Vancomycin l Dosing 20:27: Pharmacy [facility] Consult 14 Dosing Protocol PHARMAC Y USE ONLY Note: This is not a medication order. This is a consultati on order. Vancomycin 2021-09 Yes Notes: [facility] 0-21 Vancomycin l Dosing 20:27: Pharmacy [place] Consult 14 Dosing Protocol PHARMAC Y USE ONLY Note: This is not a medication order. This is a consultati on order. Vancomycin 2021-09 Yes Notes: [facility] 0-21 Vancomycin l Dosing 20:27: Pharmacy [place] Consult 14 Dosing Protocol PHARMAC Y USE ONLY Note: This is not a medication order. This is a consultati on order. Vancomycin 2021-09 Yes Notes: [facility] 0-21 Vancomycin l Dosing 20:27: Pharmacy [place] Consult 14 Dosing Protocol PHARMAC Y USE ONLY Note: This is not a medication order. This is a consultati on order. Vancomycin 2021-09 Yes Notes: [facility] 0-21 Vancomycin l Dosing 20:27: Pharmacy [place] Consult 14 Dosing Protocol PHARMAC Y USE ONLY Note: This is not a medication order. This is a consultati on order. Vancomycin 2021-09 Yes Notes: [facility] 0-21 Vancomycin l Dosing 20:27: Pharmacy [place] Consult 14 Dosing Protocol PHARMAC Y USE [...] Rate: 100 l 1,000 mL 20:23: ml/hr, [place] 00 Infuse over: 10 hr, Route: IV, [...] Rate: 100 l 1,000 mL 20:23: ml/hr, [place] 00 Infuse over: 10 hr, Route: IV, [...] 0-21 25 mL, l (D50W) 20:18: Route: [place] 00 IVP, Drug Form: INJ, Dosing Weight 69.001, kg, PRN, PRN Blood Glucose Results, Start date: 06/23/22 15:18:00 CDT, Duration: 30 day, Stop date: 07/23/22 14:17:00 COMMODITY ANALYST, 0 glucagon 2021-09 Yes 1 mg, Memoria 0-21 Route: IM, l 20:18: Drug form: [place] PDR/INJ, PRN, Dosing Weight 69.001, kg, PRN Blood Glucose Results, Start date: 06/23/22 15:18:00 CDT, Duration: 30 day, Stop date: 07/23/22 14:17:00 COMMODITY ANALYST, 0 ondansetron 2021-09 Yes Notes: Yung ami [...] Duration: 30 day, Stop date: 07/23/22 14:17:00 COMMODITY ANALYST, 0 glucagon 2021-09 Yes 1 mg, Memoria 0-21 Route: IM, l 20:18: Drug form: PDR/INJ, PRN, Dosing Weight 69.001, kg, PRN Blood Glucose Results, Start date: 06/23/22 15:18:00 CDT, Duration: 30 day, Stop date: 07/23/22 14:17:00 COMMODITY ANALYST, 0 ondansetron 2021-09 Yes Notes: Yung ami [...] Duration: 30 day, Stop date: 07/23/22 14:17:00 COMMODITY ANALYST, 0 glucagon 2021-09 Yes 1 mg, Memoria 0-21 Route: IM, l 20:18: Drug form: [place] 00 PDR/INJ, PRN, Dosing Weight 69.001, kg, PRN Blood Glucose Results, Start date: 06/23/22 15:18:00 CDT, Duration: 30 day, Stop date: 07/23/22 14:17:00 COMMODITY ANALYST, 0 ondansetron 2021-09 Yes Notes: Yung ami 0-21 (Same as: l 20:18: Zofran) MEDICATION WASTE Product Size: 4 mg Product Wasted: ___ mg melatonin 2021-09 Yes Notes: Memori a 0-21 (Same as: l 20:18: Melatonin) Dextrose 2021-09 Yes 12.5 gm, Memor ia 50% Syringe 0-21 25 mL, l (D50W) 20:18: Route: [place]o IVP, Drug Form: INJ, Dosing Weight 69.001, kg, PRN, PRN Blood Glucose Results, Start date: 06/23/22 15:18:00 CDT, Duration: 30 day, Stop date: 07/23/22 14:17:00 COMMODITY ANALYST, 0 glucagon 2021-09 Yes 1 mg, Memoria 0-21 Route: IM, l 20:18: Drug form: [place] 00 PDR/INJ, PRN, Dosing Weight 69.001, kg, PRN Blood Glucose Results, Start date: 06/23/22 15:18:00 CDT, Duration: 30 day, Stop date: 07/23/22 14:17:00 COMMODITY ANALYST, 0 ondansetron 2021-09 Yes Notes: Yung ami [...] Duration: 30 day, Stop date: 07/23/22 14:17:00 COMMODITY ANALYST, 0 glucagon 2021-09 Yes 1 mg, Memoria 0-21 Route: IM, l 20:18: Drug form: [place] 00 PDR/INJ, PRN, Dosing Weight 69.001, kg, PRN Blood Glucose Results, Start date: 06/23/22 15:18:00 CDT, Duration: 30 day, Stop date: 07/23/22 14:17:00 COMMODITY ANALYST, 0 ondansetron 2021-09 Yes Notes: Yung ami [...] Duration: 30 day, Stop date: 07/23/22 14:17:00 COMMODITY ANALYST, 0 glucagon 2021-09 Yes 1 mg, Memoria 0-21 Route: IM, l 20:18: Drug form: [place] 00 PDR/INJ, PRN, Dosing Weight 69.001, kg, PRN Blood Glucose Results, Start date: 06/23/22 15:18:00 CDT, Duration: 30 day, Stop date: 07/23/22 14:17:00 COMMODITY ANALYST, 0 ondansetron 2021-09 Yes Notes: Yung ami [...] Duration: 30 day, Stop date: 07/23/22 14:17:00 COMMODITY ANALYST, 0 glucagon 2021-09 Yes 1 mg, Memoria 0-21 Route: IM, l 20:18: Drug form: PDR/INJ, PRN, Dosing Weight 69.001, kg, PRN Blood Glucose Results, Start date: 06/23/22 15:18:00 CDT, Duration: 30 day, Stop date: 07/23/22 14:17:00 COMMODITY ANALYST, 0 ondansetron 2021-09 Yes Notes: Yung ami 0-21 (Same as: l 20:18: Zofran) MEDICATION WASTE Product Size: 4 mg Product Wasted: ___ mg melatonin 2021-09 Yes Notes: Memori a 0-21 (Same as: l 20:18: Melatonin) fluconazole 2021-09 Yes 200 mg = Me moria 0-21 100 mL, l 15:15: IV, [id number], 0 Refill(s) fluconazole 2021-09 Yes 200 mg = Me moria 0-21 100 mL, l 15:15: IV, [id number], 0 Refill(s) fluconazole 2021-09 Yes 200 mg = Me moria 0-21 100 mL, l 15:15: IV, [id number], 0 Refill(s) fluconazole 2021-09 Yes 200 mg = Me moria 0-21 100 mL, l 15:15: IV, [id number], 0 Refill(s) fluconazole 2021-09 Yes 200 mg = Me moria 0-21 100 mL, l 15:15: IV, [id number], 0 Refill(s) fluconazole 2021-09 Yes 200 mg = Me moria 0-21 100 mL, l 15:15: IV, [id number], 0 Refill(s) fluconazole 2021-09 Yes 200 mg = Me moria 0-21 100 mL, l 15:15: IV, [id number], 0 Refill(s) metFORMIN 2021-09 Yes 750 mg = 1 Me moria 750 mg oral 0-19 tab, PO, l tablet, 08:47: Daily, extended with release evening meal, # 30 tab, 0 Refill(s) metFORMIN 2021-09 Yes 750 mg = 1 Me moria 750 mg oral 0-19 tab, PO, l tablet, 08:47: Daily, with release evening meal, # 30 tab, 0 Refill(s) metFORMIN 2021-09 Yes 750 mg = 1 Me moria 750 mg oral 0-19 tab, PO, l tablet, 08:47: Daily, Dayo with release evening meal, # 30 tab, 0 Refill(s) metFORMIN 2021-09 Yes 750 mg = 1 Me moria 750 mg oral 0-19 tab, PO, l tablet, 08:47: Daily, Dayo with release evening meal, # 30 tab, 0 Refill(s) metFORMIN 2021-09 Yes 750 mg = 1 Me moria 750 mg oral 0-19 tab, PO, l tablet, 08:47: Daily, with release evening meal, # 30 tab, 0 Refill(s) metFORMIN 2021-09 Yes 750 mg = 1 Me moria 750 mg oral 0-19 tab, PO, l tablet, 08:47: Daily, with release evening meal, # 30 tab, 0 Refill(s) metFORMIN 2021-09 Yes 750 mg = 1 Me moria 750 mg oral 0-19 tab, PO, l tablet, 08:47: Daily, with release evening meal, # 30 tab, 0 Refill(s) Saline 2021-09 No Notes: Memoria Flush 0.9% 0-19 (Same as: l 03:29: BD Posiflush) pantoprazol 2021-09 No Notes: For Memoria e 0-19 IV push l 03:29: reconstitu te with 10 ml 0.9% sodium chloride [...] ia 0-19 (Same As: l 03:29: SandoSTATI [place] 00 N). Refrigerat e. MEDICATION WASTE Product [...] e 0-19 IV push l 03:29: reconstitu [place] 00 te with 10 ml 0.9% sodium chloride and push over 2 minutes. (Same as: Protonix) pantoprazol 2021-09 No Notes: For Memoria e additive 0-19 IV push l 80 mg + 03:29: reconstitu Herm alebrto Sodium 00 te with 10 Chloride ml [...] e 0-19 IV push l 03:29: reconstitu [place] 00 te with 10 ml 0.9% sodium [...] ia 0-19 (Same As: l 03:29: SandoSTATI [place] 00 N). Refrigerat e. MEDICATION WASTE Product [...] e 0-19 IV push l 03:29: reconstitu [place] 00 te with 10 ml 0.9% sodium [...] ia 0-19 (Same As: l 03:29: SandoSTATI [place] 00 N). Refrigerat e. MEDICATION WASTE Product [...] 0.9% 0-19 (Same as: l 03:29: BD [place] 00 Posiflush) pantoprazol 2021-09 No Notes: For Memoria e 0-19 IV push l 03:29: reconstitu [place]o 00 te with 10 ml 0.9% sodium chloride and push over 2 minutes. (Same as: Protonix) Saline 2021-09 No Notes: Memoria Flush 0.9% [...] 06/23/22 22:28:00 CDT, BSA: 1.89 m2, 0 pantoprazol 2021-09 No Notes: For Memoria e [...] No Notes: Yung ami 0-19 (Same as: 02:08: Zo) Dayo 00 MEDICATION WASTE Product Size: 4 mg Product Wasted: ___ mg ondansetron 2021-09 No Notes: Yung ami 0-19 (Same as: l 02:08: Zofran) [place]o 00 MEDICATION WASTE Product Size: 4 mg Product Wasted: ___ mg ondansetron 2021-09 No Notes: Yung ami 0-19 (Same as: l 02:08: Zofr) [place] 00 MEDICATION WASTE Product Size: 4 [...] ami 0-19 (Same as: l 02:08: Zofran) [place] 00 MEDICATION WASTE Product Size: 4 mg Product Wasted: ___ mg Metformin 2021-09 Yes 750mg Take 750 Lalo sey HCl ER 750 0-19 mg by Seybold MG oral 00:00: mouth - TABLET SR 00 daily Externa 24 HR l Metformin 2021-09 Yes 750mg Take 750 Lalo sey HCl ER 750 0-19 mg by Seybold MG oral 00:00: mouth - TABLET SR 00 daily Externa 24 HR l Metformin 2021-09 Yes 750mg Take 750 Lalo sey HCl ER 750 0-19 mg by Seybold MG oral 00:00: mouth - TABLET SR daily Externa 24 HR l Metformin 2021-09 Yes 750mg Take 750 Lalo sey HCl ER 750 0-19 mg by Seybold MG oral 00:00: mouth - TABLET SR 00 daily Externa 24 HR l ondansetron No 4mg 4 mg, Slow Univers (ZOFRAN 04-17 IV Push, ity of (PF)) 23:00: 23:46 ONCE, 1 [place] injection 4 00 :00 dose, On Medi lamine mg [facility] 04/17/22 at 1800, LISA morpHINE (4 No 4mg 4 mg, Slow Univers mg/mL) 04-17 IV Push, ity of injection 4 23:00: 23:50 [place]CE[place] 1 [place] 00 :00 dose, On Medical [facility] 04/17/22 at 1800, STAT NaCl 0.9% No 1000mL at 999 Uni vers (NS) bolus 04-17 mL/hr, ity of infusion 22:45: 23:45 1,000 mL, [place] as 1,000 mL 00 :00 IV Medical Infusion, Branch ONCE, 1 dose, On [facility] 04/17/22 at 1745, LISA ketorolac No 30mg 30 mg, Unive rs (TORADOL) 04-17 Slow IV ity of injection 22:15: 22:13 Push, [place] 30 mg 00 :00 ONCE, 1 Medical dose, On [place] 04/17/22 at 1715, LISA clotrimazol Yes [id number] 1{appli Insert 1 Univers e 1 % 4-23 cator} Applicator ity of vaginal 00:00: into [place] cream 00 vagina at Medical bedtime. [place] clotrimazol Yes [id number] 1{appli Insert 1 Univers e 1 % 4-23 cator} Applicator ity of vaginal 00:00: into [place] cream 00 vagina at Medical bedtime. [place] clotrimazol Yes [id number] 1{appli Insert 1 Univers e 1 % 4-23 cator} Applicator ity of vaginal 00:00: into [place] cream 00 vagina at Medical bedtime. [place] fluconazole 2020- No [id number] 150mg Take 1 Univers (DIFLUCAN) 4-23 05-16 tablet by ity of 150 mg 00:00: 04:59 mouth [place] tablet 00 :00 weekly for Medical 4 doses. [place] fluconazole 2020- No [id number] 150mg Take 1 [facility] (DIFLUCAN) 4-23 05-16 tablet by ity of 150 mg 00:00: 04:59 mouth [place] tablet 00 :00 weekly for Medical 4 doses. [place] JARDIANCE Yes Univers 3-05 ity of 00:00: [place] [facility] lisinopriL Yes Univers 10 mg 3-05 ity of tablet 00:00: [place] [facility] JARDIANCE 0 Yes Univers 3-05 ity of 00:00: [place] [facility] lisinopriL Yes Univers 10 mg 3-05 ity of tablet 00:00: [place] [facility] JARDIANCE 0 Yes Univers 3-05 ity of 00:00: [place] [facility] lisinopriL Yes [facility] 10 mg 3-05 ity of tablet 00:00: [place] [facility] clotrimazol Yes [id number] 1{appli Insert 1 Univers e 1 % 6-24 cator} Applicator ity of vaginal 00:00: into [place] cream 00 vagina at Medical bedtime. [place] clotrimazol Yes [id number] 1{appli Insert 1 Univers e 1 % 6-24 cator} Applicator ity of vaginal 00:00: into [place] cream 00 vagina at Medical bedtime. Branch clotrimazol 0 Yes [id number] 1{appli Insert 1 [facility] e 1 % 6-24 cator} Applicator ity of vaginal 00:00: into [place] cream 00 vagina at Medical bedtime. Branch clotrimazol Yes [id number] 1{appli Insert 1 [facility] e 1 % 6-24 cator} Applicator ity of vaginal 00:00: into [place] cream 00 vagina at Medical bedtime. Branch clotrimazol Yes [id number] 1{appli Insert 1 [facility] e 1 % 6-24 cator} Applicator ity of vaginal 00:00: into [place] cream 00 vagina at Medical bedtime. Branch clotrimazol Yes [id number] 1{appli Insert 1 [facility] e 1 % 6-24 cator} Applicator ity of vaginal 00:00: into [place] cream 00 vagina at Medical bedtime. Branch clotrimazol Yes [id number] 1{appli Insert 1 [facility] e 1 % 6-24 cator} Applicator ity of vaginal 00:00: into [place] cream 00 vagina at Medical bedtime. Branch fluconazole 2020- No [id number] 150mg Take 1 [facility] (DIFLUCAN) 6-24 06-25 tablet by ity of 150 mg 00:00: 04:59 mouth [place] tablet 00 :00 now for 1 Medical dose. [place] fluconazole 2020- No [id number] 150mg Take 1 [facility] (DIFLUCAN) 6-24 06-25 tablet by ity of 150 mg 00:00: 04:59 mouth [place] tablet 00 :00 now for 1 Medical dose. Branch clotrimazol Yes [id number] 1{appli Insert 1 [facility] e 1 % 5-18 cator} Applicator ity of vaginal 00:00: into [place] cream 00 vagina at Medical bedtime. [place] clotrimazol Yes [id number] 1{appli Insert 1 [facility] e 1 % 5-18 cator} Applicator ity of vaginal 00:00: into [place] cream 00 vagina at Medical bedtime. Branch clotrimazol Yes [id number] 1{appli Insert 1 [facility] e 1 % 5-18 cator} Applicator ity of vaginal 00:00: into [place] cream 00 vagina at Medical bedtime. Branch clotrimazol Yes [id number] 1{appli Insert 1 [facility] e 1 % 5-18 cator} Applicator ity of vaginal 00:00: into [place] cream 00 vagina at Medical bedtime. Branch clotrimazol Yes [id number] 1{appli Insert 1 [facility] e 1 % 5-18 cator} Applicator ity of vaginal 00:00: into [place] cream 00 vagina at Medical bedtime. [place] clotrimazol Yes [id number] 1{appli Insert 1 [facility] e 1 % 5-18 cator} Applicator ity of vaginal 00:00: into [place] cream 00 vagina at Medical bedtime. [place] clotrimazol 2020- No [id number] 1{appli Insert 1 [facility] e 1 % 5-18 04-23 cator} Applicator ity o f vaginal 00:00: 00:00 into [place] cream 00 :00 vagina at Medical bedtime. [place] clotrimazol 2020- No [id number] 1{appli Insert 1 [facility] e 1 % 5-18 04-23 cator} Applicator ity o f vaginal 00:00: 00:00 into [place] cream 00 :00 vagina at Medical bedtime. [place] azithromyci Yes [id number] 250mg Take 1 [facility] n 4-25 tablet by ity of (ZITHROMAX 00:00: mouth [place] Z-KANNAN) 250 00 SEE-INSTRU Med ical mg tablet CTIONS. Branch Take 500 mg day 1, then 250 mg days 2 to 5. albuterol Yes [id number] 2{puff} Inhale 2 [facility] 90 4-25 Puffs ity of mcg/actuati 00:00: every 4 [place] inhaler 00 (four) Medical hours as Branch needed for Wheezing or Shortness of Breath. predniSONE Yes [id number] 10mg Take 1 U nivers 10 mg 4-25 tablet by ity of tablet 00:00: mouth [place] 00 daily. Medical Branch azithromyci Yes [id number] 250mg Take 1 [facility] n 4-25 tablet by ity of (ZITHROMAX 00:00: mouth [place] Z-KANNAN) 250 00 SEE-INSTRU Med ical mg tablet CTIONS. Branch Take 500 mg day 1, then 250 mg days 2 to 5. albuterol 2020-0 Yes [id number] 2{puff} Inhale 2 [facility] 90 4-25 Puffs ity of mcg/actuati 00:00: every 4 [place] inhaler 00 (four) Medical hours as Branch needed for Wheezing or Shortness of Breath. predniSONE 2020-0 Yes [id number] 10mg Take 1 U nivers 10 mg 4-25 tablet by ity of tablet 00:00: mouth [place] 00 daily. Medical Branch azithromyci 2020-0 Yes [id number] 250mg Take 1 [facility] n 4-25 tablet by ity of (ZITHROMAX 00:00: mouth [place] Z-KANNAN) 250 00 SEE-INSTRU Med ical mg tablet CTIONS. Branch Take 500 mg day 1, then 250 mg days 2 to 5. albuterol 2020-0 Yes [id number] 2{puff} Inhale 2 [facility] 90 4-25 Puffs ity of mcg/actuati 00:00: every 4 [place] inhaler 00 (four) Medical hours as Branch needed for Wheezing or Shortness of Breath. predniSONE 2020-0 Yes [id number] 10mg Take 1 U nivers 10 mg 4-25 tablet by ity of tablet 00:00: mouth [place] 00 daily. Medical Branch azithromyci 2020-0 Yes [id number] 250mg Take 1 [facility] n 4-25 tablet by ity of (ZITHROMAX 00:00: mouth [place] Z-KANNAN) 250 00 SEE-INSTRU Med ical mg tablet CTIONS. Branch Take 500 mg day 1, then 250 mg days 2 to 5. albuterol 2020-0 Yes [id number] 2{puff} Inhale 2 [facility] 90 4-25 Puffs ity of mcg/actuati 00:00: every 4 [place] inhaler 00 (four) Medical hours as Branch needed for Wheezing or Shortness of Breath. predniSONE 2020-0 Yes [id number] 10mg Take 1 U nivers 10 mg 4-25 tablet by ity of tablet 00:00: mouth [place] 00 daily. Medical Branch albuterol 2020-0 Yes [id number] 2{puff} Inhale 2 [facility] 90 4-25 Puffs ity of mcg/actuati 00:00: every 4 [place] on inhaler 00 (four) Medical hours as Branch needed for Wheezing or Shortness of Breath. albuterol 2019-0 Yes [id number] 2{puff} Inhale 2 [facility] 90 4-25 Puffs ity of mcg/actuati 00:00: every 4 [place] inhaler 00 (four) Medical hours as Branch needed for Wheezing or Shortness of Breath. albuterol 2019-0 Yes [id number] 2{puff} Inhale 2 [facility] 90 4-25 Puffs ity of mcg/actuati 00:00: every 4 [place] inhaler 00 (four) Medical hours as Branch needed for Wheezing or Shortness of Breath. azithromyci 2020-0 Yes [id number] 250mg Take 1 [facility] n 4-25 tablet by ity of (ZITHROMAX 00:00: mouth [place] Z-KANNAN) 250 00 SEE-INSTRU Med ical mg tablet CTIONS. Branch Take 500 mg day 1, then 250 mg days 2 to 5. albuterol 2019-0 Yes [id number] 2{puff} Inhale 2 [facility] 90 4-25 Puffs ity of mcg/actuati 00:00: every 4 [place] on inhaler 00 (four) Medical hours as Branch needed for Wheezing or Shortness of Breath. predniSONE 2020-0 Yes [id number] 10mg Take 1 U nivers 10 mg 4-25 tablet by ity of tablet 00:00: mouth [place] 00 daily. Medical Branch azithromyci 2020-0 Yes [id number] 250mg Take 1 [facility] n 4-25 tablet by ity of (ZITHROMAX 00:00: mouth [place] Z-KANNAN) 250 00 SEE-INSTRU Med ical mg tablet CTIONS. Branch Take 500 mg day 1, then 250 mg days 2 to 5. albuterol 2020-0 Yes [id number] 2{puff} Inhale 2 [facility] 90 4-25 Puffs ity of mcg/actuati 00:00: every 4 [place] on inhaler 00 (four) Medical hours as Branch needed for Wheezing or Shortness of Breath. predniSONE 2020-0 Yes [id number] 10mg Take 1 U nivers 10 mg 4-25 tablet by ity of tablet 00:00: mouth [place] 00 daily. Medical Branch azithromyci Yes [id number] 250mg Take 1 [facility] n 4-25 tablet by ity of (ZITHROMAX 00:00: mouth [place] Z-KANNAN) 250 00 SEE-INSTRU Med ical mg tablet CTIONS. Branch Take 500 mg day 1, then 250 mg days 2 to 5. albuterol Yes [id number] 2{puff} Inhale 2 [facility] 90 4-25 Puffs ity of mcg/actuati 00:00: every 4 [place] on inhaler 00 (four) Medical hours as Branch needed for Wheezing or Shortness of Breath. predniSONE Yes [id number] 10mg Take 1 U nivers 10 mg 4-25 tablet by ity of tablet 00:00: mouth [place] 00 daily. Medical Branch azithromyci 2020- No [id number] 250mg Take 1 [facility] n 4-25 04-23 tablet by ity of (ZITHROMAX 00:00: 00:00 mouth [place] Z-KANNAN) 250 00 :00 SEE-INSTRU Med ical mg tablet CTIONS. Branch Take 500 mg day 1, then 250 mg days 2 to 5. predniSONE 2020- No [id number] 10mg Take 1 [facility] 10 mg 4-25 04-23 tablet by ity of tablet 00:00: 00:00 mouth [place] 00 :00 daily. Medical Branch azithromyci 2020- No [id number] 250mg Take 1 [facility] n 4-25 04-23 tablet by ity of (ZITHROMAX 00:00: 00:00 mouth [place] Z-KANNAN) 250 00 :00 SEE-INSTRU Med ical mg tablet CTIONS. Branch Take 500 mg day 1, then 250 mg days 2 to 5. predniSONE 2020- No [id number] 10mg Take 1 [facility] 10 mg 4-25 04-23 tablet by ity of tablet 00:00: 00:00 mouth [place] 00 :00 daily. Medical Branch metoclopram Yes [id number] 10mg Take 1 [facility] stephany HCl 10 4-20 tablet by ity of mg tablet 00:00: mouth [place] 00 every 6 Medical (six) Branch hours as needed for Nausea and Vomiting (N/V). metoclopram 2019-0 Yes [id number] 10mg Take 1 [facility] stephany HCl 10 4-20 tablet by ity of mg tablet 00:00: mouth [place] 00 every 6 Medical (six) Branch hours as needed for Nausea and Vomiting (N/V). metoclopram 2019-0 Yes [id number] 10mg Take 1 [facility] stephany HCl 10 4-20 tablet by ity of mg tablet 00:00: mouth [place] 00 every 6 Medical (six) Branch hours as needed for Nausea and Vomiting (N/V). metoclopram 2019-0 Yes [id number] 10mg Take 1 [facility] stephany HCl 10 4-20 tablet by ity of mg tablet 00:00: mouth [place] 00 every 6 Medical (six) Branch hours as needed for Nausea and Vomiting (N/V). metoclopram 2019-0 Yes [id number] 10mg Take 1 [facility] stephany HCl 10 4-20 tablet by ity of mg tablet 00:00: mouth [place] 00 every 6 Medical (six) Branch hours as needed for Nausea and Vomiting (N/V). metoclopram 2019-0 Yes [id number] 10mg Take 1 [facility] stephany HCl 10 4-20 tablet by ity of mg tablet 00:00: mouth [place] 00 every 6 Medical (six) Branch hours as needed for Nausea and Vomiting (N/V). metoclopram 2019-0 Yes [id number] 10mg Take 1 [facility] stephany HCl 10 4-20 tablet by ity of mg tablet 00:00: mouth [place] 00 every 6 Medical (six) Branch hours as needed for Nausea and Vomiting (N/V). metoclopram 2019-0 Yes [id number] 10mg Take 1 [facility] stephany HCl 10 4-20 tablet by ity of mg tablet 00:00: mouth [place] 00 every 6 Medical (six) Branch hours as needed for Nausea and Vomiting (N/V). metoclopram 2019-0 Yes [id number] 10mg Take 1 [facility] stephany HCl 10 4-20 tablet by ity of mg tablet 00:00: mouth [place] 00 every 6 Medical (six) Branch hours as needed for Nausea and Vomiting (N/V). metoclopram 2019-0 Yes [id number] 10mg Take 1 [facility] stephany HCl 10 4-20 tablet by ity of mg tablet 00:00: mouth [place] 00 every 6 Medical (six) Branch hours as needed for Nausea and Vomiting (N/V). metoclopram 2019- Yes [id number] 10mg Take 1 [facility] stephany HCl 10 4-20 tablet by ity of mg tablet 00:00: mouth [place] 00 every 6 Medical (six) Branch hours as needed for Nausea and Vomiting (N/V). lactobacill Yes [id number] 1{tbl} Take 1 [facility] us 3-21 tablet by ity of acidophilus 00:00: mouth 2 [place] 25 million 00 (two) Medical cell -100 times Branch mg captab daily. lactobacill Yes [id number] 1{tbl} Take 1 [facility] us 3-21 tablet by ity of acidophilus 00:00: mouth 2 [place] 25 million 00 (two) Medical cell -100 times Branch mg captab daily. lactobacill Yes [id number] 1{tbl} Take 1 [facility] us 3-21 tablet by ity of acidophilus 00:00: mouth 2 [place] 25 million 00 (two) Medical cell -100 times Branch mg captab daily. lactobacill Yes [id number] 1{tbl} Take 1 [facility] us 3-21 tablet by ity of acidophilus 00:00: mouth 2 [place] 25 million 00 (two) Medical cell -100 times Branch mg captab daily. lactobacill Yes [id number] 1{tbl} Take 1 [facility] us 3-21 tablet by ity of acidophilus 00:00: mouth 2 [place] 25 million 00 (two) Medical cell -100 times Branch mg captab daily. lactobacill Yes [id number] 1{tbl} Take 1 [facility] us 3-21 tablet by ity of acidophilus 00:00: mouth 2 [place] 25 million 00 (two) Medical cell -100 times Branch mg captab daily. lactobacill Yes [id number] 1{tbl} Take 1 [facility] us 3-21 tablet by ity of acidophilus 00:00: mouth 2 [place] 25 million 00 (two) Medical cell -100 times Branch mg captab daily. lactobacill Yes [id number] 1{tbl} Take 1 [facility] us 3-21 tablet by ity of acidophilus 00:00: mouth 2 [place] 25 million 00 (two) Medical cell -100 times Branch mg captab daily. lactobacill 2019-0 Yes [id number] 1{tbl} Take 1 [facility] us 3-21 tablet by ity of acidophilus 00:00: mouth 2 [place] 25 million 00 (two) Medical cell -100 times Branch mg captab daily. lactobacill 2018-0 Yes [id number] 1{tbl} Take 1 [facility] us 3-21 tablet by ity of acidophilus 00:00: mouth 2 [place] 25 million 00 (two) Medical cell -100 times Branch mg captab daily. lactobacill 2018-0 Yes [id number] 1{tbl} Take 1 [facility] us 3-21 tablet by ity of acidophilus 00:00: mouth 2 [place] 25 million 00 (two) Medical cell -100 times Branch mg captab daily. aspirin 81 2018-0 Yes [id number] 81mg Take 1 [facility] mg chewable 2-21 tablet by ity of tablet 00:00: mouth [place] 00 daily. Medical Branch pantoprazol 2018-0 Yes [id number] 40mg Take 1 [facility] e 40 mg EC 2-21 tablet by ity of tablet 00:00: mouth [place] 00 daily. Medical Branch aspirin 81 2018-0 Yes [id number] 81mg Take 1 [facility] mg chewable 2-21 tablet by ity of tablet 00:00: mouth [place] 00 daily. Medical Branch pantoprazol 2019-0 Yes [id number] 40mg Take 1 [facility] e 40 mg EC 2-21 tablet by ity of tablet 00:00: mouth [place] 00 daily. Medical Branch aspirin 81 2018-0 Yes [id number] 81mg Take 1 [facility] mg chewable 2-21 tablet by ity of tablet 00:00: mouth [place] 00 daily. Medical Branch pantoprazol 2019-0 Yes [id number] 40mg Take 1 [facility] e 40 mg EC 2-21 tablet by ity of tablet 00:00: mouth [place] 00 daily. Medical Branch aspirin 81 2019-0 Yes [id number] 81mg Take 1 [facility] mg chewable 2-21 tablet by ity of tablet 00:00: mouth [place] 00 daily. Medical Branch pantoprazol 2019-0 Yes [id number] 40mg Take 1 [facility] e 40 mg EC 2-21 tablet by ity of tablet 00:00: mouth [place] 00 daily. Medical Branch aspirin 81 2018-0 Yes [id number] 81mg Take 1 [facility] mg chewable 2-21 tablet by ity of tablet 00:00: mouth [place] 00 daily. Medical Branch pantoprazol 2018-0 Yes [id number] 40mg Take 1 [facility] e 40 mg EC 2-21 tablet by ity of tablet 00:00: mouth [place] 00 daily. Medical Branch aspirin 81 2019-0 Yes [id number] 81mg Take 1 [facility] mg chewable 2-21 tablet by ity of tablet 00:00: mouth [place] 00 daily. Medical Branch pantoprazol 2018-0 Yes [id number] 40mg Take 1 [facility] e 40 mg EC 2-21 tablet by ity of tablet 00:00: mouth [place] 00 daily. Medical Branch aspirin 81 2018-0 Yes [id number] 81mg Take 1 [facility] mg chewable 2-21 tablet by ity of tablet 00:00: mouth [place] 00 daily. Medical Branch pantoprazol 2018-0 Yes [id number] 40mg Take 1 [facility] e 40 mg EC 2-21 tablet by ity of tablet 00:00: mouth [place] 00 daily. Medical Branch aspirin 81 2018-0 Yes [id number] 81mg Take 1 [facility] mg chewable 2-21 tablet by ity of tablet 00:00: mouth [place] 00 daily. Medical Branch pantoprazol 2018-0 Yes [id number] 40mg Take 1 [facility] e 40 mg EC 2-21 tablet by ity of tablet 00:00: mouth [place] 00 daily. Medical Branch aspirin 81 2018-0 Yes [id number] 81mg Take 1 [facility] mg chewable 2-21 tablet by ity of tablet 00:00: mouth [place] 00 daily. Medical Branch pantoprazol 2018-0 Yes [id number] 40mg Take 1 [facility] e 40 mg EC 2-21 tablet by ity of tablet 00:00: mouth [place] 00 daily. Medical Branch aspirin 81 2018-0 Yes [id number] 81mg Take 1 [facility] mg chewable 2-21 tablet by ity of tablet 00:00: mouth [place] 00 daily. Medical Branch pantoprazol 2019-0 Yes [id number] 40mg Take 1 [facility] e 40 mg EC 2-21 tablet by ity of tablet 00:00: mouth [place] 00 daily. Medical Branch aspirin 81 2018-0 Yes [id number] 81mg Take 1 [facility] mg chewable 2-21 tablet by ity of tablet 00:00: mouth [place] 00 daily. Medical Branch pantoprazol 2018-0 Yes [id number] 40mg Take 1 [facility] e 40 mg EC 2-21 tablet by ity of tablet 00:00: mouth [place] 00 daily. Medical Branch insulin NPH 0 Yes [id number] 14U inject 14 [facility] 100 unit/mL 2-20 Units ity of injection 00:00: under the [place] 00 skin every Medical morning. Branch insulin NPH 0 Yes [id number] 10U inject 10 [facility] 100 unit/mL 2-20 Units ity of injection 00:00: under the [place] 00 skin every Medical evening. Branch metoclopram Yes [id number] 10mg Take 1 [facility] stephany HCl 10 2-20 tablet by ity of mg tablet 00:00: mouth [place] 00 every 6 Medical (six) Branch hours as needed for Nausea and Vomiting (N/V). insulin 2018- Yes [id number] Use as Uni vers syringe-nee 2-20 directed ity of dle U-100 1 00:00: [place] ml (INSULIN 00 Medical SYRINGE) 1 Branch mL 29 gauge x 1/2" Syrg metformin Yes [id number] 750mg Take 1 [facility] ER 750 mg 2-20 tablet by ity o f 24 hr 00:00: mouth [place] tablet 00 daily with Medical breakfast. Branch atorvastati Yes [id number] 40mg Take 1 [facility] n 40 mg 2-20 tablet by ity of tablet 00:00: mouth at [place] 00 bedtime. [facility] Branch insulin NPH Yes [id number] 14U inject 14 [facility] 100 unit/mL 2-20 Units ity of injection 00:00: under the [place] 00 skin every Medical morning. Branch insulin NPH Yes [id number] 10U inject 10 [facility] 100 unit/mL 2-20 Units ity of injection 00:00: under the [place] 00 skin every Medical evening. Branch metoclopram Yes [id number] 10mg Take 1 [facility] stephany HCl 10 2-20 tablet by ity of mg tablet 00:00: mouth [place] 00 every 6 Medical (six) Branch hours as needed for Nausea and Vomiting (N/V). insulin Yes [id number] Use as [facility] vers syringe-nee 2-20 directed ity of dle U-100 1 00:00: [place] ml (INSULIN 00 Medical SYRINGE) 1 Branch mL 29 gauge x 1/2" Syrg metformin 2018-0 Yes [id number] 750mg Take 1 [facility] ER 750 mg 2-20 tablet by ity o f 24 hr 00:00: mouth [place] tablet 00 daily with Medical breakfast. Branch atorvastati 2019-0 Yes [id number] 40mg Take 1 [facility] n 40 mg 2-20 tablet by ity of tablet 00:00: mouth at [place] 00 bedtime. Medical Branch insulin NPH 2019-0 Yes [id number] 14U inject 14 [facility] 100 unit/mL 2-20 Units ity of injection 00:00: under the [place] 00 skin every Medical morning. Branch insulin NPH 2018-0 Yes [id number] 10U inject 10 [facility] 100 unit/mL 2-20 Units ity of injection 00:00: under the [place] 00 skin every Medical evening. Branch metoclopram 2018-0 Yes [id number] 10mg Take 1 [facility] stephany HCl 10 2-20 tablet by ity of mg tablet 00:00: mouth [place] 00 every 6 Medical (six) Branch hours as needed for Nausea and Vomiting (N/V). insulin 2018- Yes [id number] Use as [facility] vers syringe-nee 2-20 directed ity of dle U-100 1 00:00: [place] ml (INSULIN 00 Medical SYRINGE) 1 Branch mL 29 gauge x 1/2" Syrg metformin 2018-0 Yes [id number] 750mg Take 1 [facility] ER 750 mg 2-20 tablet by ity o f 24 hr 00:00: mouth [place] tablet 00 daily with Medical breakfast. Branch atorvastati 2019-0 Yes [id number] 40mg Take 1 [facility] n 40 mg 2-20 tablet by ity of tablet 00:00: mouth at [place] 00 bedtime. Medical Branch insulin NPH 2019-0 Yes [id number] 14U inject 14 [facility] 100 unit/mL 2-20 Units ity of injection 00:00: under the [place] 00 skin every Medical morning. Branch insulin NPH 2018-0 Yes [id number] 10U inject 10 [facility] 100 unit/mL 2-20 Units ity of injection 00:00: under the [place] 00 skin every Medical evening. Branch metoclopram 2019-0 Yes [id number] 10mg Take 1 [facility] stephany HCl 10 2-20 tablet by ity of mg tablet 00:00: mouth [place] 00 every 6 Medical (six) Branch hours as needed for Nausea and Vomiting (N/V). insulin 2018-0 Yes [id number] Use as [facility] vers syringe-nee 2-20 directed ity of dle U-100 1 00:00: [place] ml (INSULIN 00 Medical SYRINGE) 1 Branch mL 29 gauge x 1/2" Syrg metformin 2018-0 Yes [id number] 750mg Take 1 [facility] ER 750 mg 2-20 tablet by ity o f 24 hr 00:00: mouth [place] tablet 00 daily with Medical breakfast. Branch atorvastati Yes [id number] 40mg Take 1 [facility] n 40 mg 2-20 tablet by ity of tablet 00:00: mouth at [place] 00 bedtime. Medical Branch insulin NPH Yes [id number] 14U inject 14 [facility] 100 unit/mL 2-20 Units ity of injection 00:00: under the [place] 00 skin every Medical morning. Branch metoclopram Yes [id number] 10mg Take 1 [facility] stephany HCl 10 2-20 tablet by ity of mg tablet 00:00: mouth [place] 00 every 6 Medical (six) Branch hours as needed for Nausea and Vomiting (N/V). insulin Yes [id number] Use as [facility] vers syringe-nee 2-20 directed ity of dle U-100 1 00:00: [place] ml (INSULIN 00 Medical SYRINGE) 1 Branch mL 29 gauge x 1/2" Syrg metformin 2018- Yes [id number] 750mg Take 1 [facility] ER 750 mg 2-20 tablet by ity o f 24 hr 00:00: mouth [place] tablet 00 daily with Medical breakfast. Branch atorvastati Yes [id number] 40mg Take 1 [facility] n 40 mg 2-20 tablet by ity of tablet 00:00: mouth at [place] 00 bedtime. Medical Branch insulin NPH Yes [id number] 14U inject 14 [facility] 100 unit/mL 2-20 Units ity of injection 00:00: under the [place] 00 skin every Medical morning. Branch metoclopram Yes [id number] 10mg Take 1 [facility] stephany HCl 10 2-20 tablet by ity of mg tablet 00:00: mouth [place] 00 every 6 Medical (six) Branch hours as needed for Nausea and Vomiting (N/V). insulin 2018- Yes [id number] Use as [facility] vers syringe-nee 2-20 directed ity of dle U-100 1 00:00: [place] ml (INSULIN 00 Medical SYRINGE) 1 Branch mL 29 gauge x 1/2" Syrg metformin 2019-0 Yes [id number] 750mg Take 1 [facility] ER 750 mg 2-20 tablet by ity o f 24 hr 00:00: mouth [place] tablet 00 daily with Medical breakfast. Branch atorvastati 2018-0 Yes [id number] 40mg Take 1 [facility] n 40 mg 2-20 tablet by ity of tablet 00:00: mouth at [place] 00 bedtime. Medical Branch insulin NPH 2018- Yes [id number] 14U inject 14 [facility] 100 unit/mL 2-20 Units ity of injection 00:00: under the [place] 00 skin every Medical morning. Branch insulin NPH Yes [id number] 14U inject 14 [facility] 100 unit/mL 2-20 Units ity of injection 00:00: under the [place] 00 skin every Medical morning. Branch metoclopram Yes [id number] 10mg Take 1 [facility] stephany HCl 10 2-20 tablet by ity of mg tablet 00:00: mouth [place] 00 every 6 Medical (six) Branch hours as needed for Nausea and Vomiting (N/V). insulin Yes [id number] Use as [facility] vers syringe-nee 2-20 directed ity of dle U-100 1 00:00: [place] ml (INSULIN 00 Medical SYRINGE) 1 Branch mL 29 gauge x 1/2" Syrg metformin 2018-0 Yes [id number] 750mg Take 1 [facility] ER 750 mg 2-20 tablet by ity o f 24 hr 00:00: mouth [place] tablet 00 daily with Medical breakfast. Branch atorvastati 2018-0 Yes [id number] 40mg Take 1 [facility] n 40 mg 2-20 tablet by ity of tablet 00:00: mouth at [place] 00 bedtime. Medical Branch insulin NPH Yes [id number] 10U inject 10 [facility] 100 unit/mL 2-20 Units ity of injection 00:00: under the [place] 00 skin every Medical evening. Branch metoclopram 2018-0 Yes [id number] 10mg Take 1 [facility] stephany HCl 10 2-20 tablet by ity of mg tablet 00:00: mouth [place] 00 every 6 Medical (six) Branch hours as needed for Nausea and Vomiting (N/V). insulin 2018- Yes [id number] Use as [facility] vers syringe-nee 2-20 directed ity of dle U-100 1 00:00: [place] ml (INSULIN 00 Medical SYRINGE) 1 Branch mL 29 gauge x 1/2" Syrg metformin 2019-0 Yes [id number] 750mg Take 1 [facility] ER 750 mg 2-20 tablet by ity o f 24 hr 00:00: mouth [place] tablet 00 daily with Medical breakfast. Branch atorvastati 2018- Yes [id number] 40mg Take 1 [facility] n 40 mg 2-20 tablet by ity of tablet 00:00: mouth at [place] 00 bedtime. Medical Branch insulin NPH Yes [id number] 14U inject 14 [facility] 100 unit/mL 2-20 Units ity of injection 00:00: under the [place] 00 skin every Medical morning. Branch insulin NPH Yes [id number] 10U inject 10 [facility] 100 unit/mL 2-20 Units ity of injection 00:00: under the [place] 00 skin every Medical evening. Branch metoclopram Yes [id number] 10mg Take 1 [facility] stephany HCl 10 2-20 tablet by ity of mg tablet 00:00: mouth [place] 00 every 6 Medical (six) Branch hours as needed for Nausea and Vomiting (N/V). insulin Yes [id number] Use as [facility] vers syringe-nee 2-20 directed ity of dle U-100 1 00:00: [place] ml (INSULIN 00 Medical SYRINGE) 1 Branch mL 29 gauge x 1/2" Syrg metformin 2018-0 Yes [id number] 750mg Take 1 [facility] ER 750 mg 2-20 tablet by ity o f 24 hr 00:00: mouth [place] tablet 00 daily with Medical breakfast. Branch atorvastati Yes [id number] 40mg Take 1 [facility] n 40 mg 2-20 tablet by ity of tablet 00:00: mouth at [place] 00 bedtime. Medical Branch insulin NPH Yes [id number] 14U inject 14 [facility] 100 unit/mL 2-20 Units ity of injection 00:00: under the [place] 00 skin every Medical morning. Branch insulin NPH Yes [id number] 10U inject 10 [facility] 100 unit/mL 2-20 Units ity of injection 00:00: under the [place] 00 skin every Medical evening. Branch metoclopram Yes [id number] 10mg Take 1 [facility] stephany HCl 10 2-20 tablet by ity of mg tablet 00:00: mouth [place] 00 every 6 Medical (six) Branch hours as needed for Nausea and Vomiting (N/V). insulin Yes [id number] Use as Uni vers syringe-nee 2-20 directed ity of dle U-100 1 00:00: [place] ml (INSULIN 00 Medical SYRINGE) 1 Branch mL 29 gauge x 1/2" Syrg metformin Yes [id number] 750mg Take 1 Univers ER 750 mg 2-20 tablet by ity o f 24 hr 00:00: mouth [place] tablet 00 daily with Medical breakfast. Branch atorvastati Yes [id number] 40mg Take 1 Univers n 40 mg 2-20 tablet by ity of tablet 00:00: mouth at [place] 00 bedtime. Medical Branch insulin NPH Yes [id number] 14U inject 14 Univers 100 unit/mL 2-20 Units ity of injection 00:00: under the [place] 00 skin every Medical morning. Branch insulin NPH Yes [id number] 10U inject 10 Univers 100 unit/mL 2-20 Units ity of injection 00:00: under the [place] 00 skin every Medical evening. Branch metoclopram Yes [id number] 10mg Take 1 Univers stephany HCl 10 2-20 tablet by ity of mg tablet 00:00: mouth [place] 00 every 6 Medical (six) Branch hours as needed for Nausea and Vomiting (N/V). insulin Yes [id number] Use as Uni vers syringe-nee 2-20 directed ity of dle U-100 1 00:00: [place] ml (INSULIN 00 Medical SYRINGE) 1 Branch mL 29 gauge x 1/2" Syrg metformin Yes [id number] 750mg Take 1 Univers ER 750 mg 2-20 tablet by ity o f 24 hr 00:00: mouth [place] tablet 00 daily with Medical breakfast. Branch atorvastati Yes [id number] 40mg Take 1 Univers n 40 mg 2-20 tablet by ity of tablet 00:00: mouth at [place] 00 bedtime. Medical Branch insulin NPH 1- No [id number] 10U inject 10 Univers 100 unit/mL 2-20 04-23 Units ity of injection 00:00: 00:[place] 00 :00 skin every Medical evening. [place] insulin NPH 2021- No [id number] 10U inject 10 Univers 100 unit/mL 2-20 04-23 Units ity of injection 00:00: [place] :[place] skin every Medical evening. Branch clotrimazol Yes [id number] 1{appli Insert 1 Univers e 06-01 cator} Applicator ity of (CLOTRIMAZO 00:00: into [place] LE-7) 1 % 00 vagina at Medic al vaginal bedtime. [place] cream clotrimazol Yes [id number] 1{appli Insert 1 Univers e 06-01 cator} Applicator ity of (CLOTRIMAZO 00:00: into [place] LE-7) 1 % 00 vagina at Medic al vaginal bedtime. [place] cream clotrimazol Yes [id number] 1{appli Insert 1 Univers e 06-01 cator} Applicator ity of (CLOTRIMAZO 00:00: into [place] LE-7) 1 % 00 vagina at Medic al vaginal bedtime. [place] cream clotrimazol Yes [id number] 1{appli Insert 1 Univers e 06-01 cator} Applicator ity of (CLOTRIMAZO 00:00: into [place] LE-7) 1 % 00 vagina at Medic al vaginal bedtime. [place] cream clotrimazol Yes [id number] 1{appli Insert 1 Univers e 06-01 cator} Applicator ity of (CLOTRIMAZO 00:00: into [place] LE-7) 1 % 00 vagina at Medic al vaginal bedtime. [place] cream clotrimazol Yes [id number] 1{appli Insert 1 Univers e 06-01 cator} Applicator ity of (CLOTRIMAZO 00:00: into [place] LE-7) 1 % 00 vagina at Medic al vaginal bedtime. [place] cream clotrimazol Yes [id number] 1{appli Insert 1 Univers e 06-01 cator} Applicator ity of (CLOTRIMAZO 00:00: into [place] LE-7) 1 % 00 vagina at Medic al vaginal bedtime. [place] cream clotrimazol Yes [id number] 1{appli Insert 1 Univers e 06-01 cator} Applicator ity of (CLOTRIMAZO 00:00: into [place] LE-7) 1 % 00 vagina at Medic al vaginal bedtime. Branch cream clotrimazol Yes [id number] 1{appli Insert [address] [facility] e 06-01 cator} Applicator ity of (CLOTRIMAZO 00:00: into [place] LE-7) 1 % 00 vagina at Medic al vaginal bedtime. Branch cream clotrimazol Yes [id number] 1{appli Insert [address] [facility] e 06-01 cator} Applicator ity of (CLOTRIMAZO 00:00: into [place] LE-7) 1 % 00 vagina at Medic al vaginal bedtime. Branch cream clotrimazol Yes [id number] 1{appli Insert [address] [facility] e 06-01 cator} Applicator ity of (CLOTRIMAZO 00:00: into [place] LE-7) 1 % 00 vagina at Medic al vaginal bedtime. Branch cream Immunizations Ordered Filled Immunization Date Status Comments [facility] e Immunization Name Name Influenza, 2018-09-25 Completed Rachna Castañeda - Seasonal, 00:00:00 External Injectable, Preservative Free Influenza, 2018-09-25 Completed Rachna Cantu Seasonal, 00:00:00 External Injectable, Preservative Free Influenza, 2018-09-25 Completed Rachna Cantu Seasonal, 00:00:00 External Injectable, Preservative Free Influenza, 2018-09-25 Completed Rachna Cantu Seasonal, 00:00:00 External Injectable, Preservative Free Tdap- (Boostrix, 2015-06-01 Completed Rachna evansbogenesis - Adacel) 00:00:00 External Tdap- (Boostrix, 2015-06-01 Completed Rachna evansbogenesis - Adacel) 00:00:00 External Tdap- (Boostrix, 2015-06-01 Completed Rachna riley - Adacel) 00:00:00 External Tdap- (Boostrix, 2015-06-01 Completed Rachna riley - Adacel) 00:00:00 External TDAP 2015-06-01 Completed [facility] 00:00:00 [facility] TDAP 2015-06-01 Completed [facility] 00:00:00 [facility] TDAP 2015-06-01 Completed University of 00:00:00 [place] [facility] TDAP 2015-06-01 Completed University of 00:00:00 [place] [facility] TDAP 2015-06-01 Completed University of 00:00:00 [place] [facility] TDAP 2015-06-01 Completed University of 00:00:00 [place] [facility] TDAP 2015-06-01 Completed University of 00:00:00 [place] [facility] Tdap 2015-06-01 Completed University of 00:00:00 [place] [facility] Tdap 2015-06-01 Completed University of 00:00:00 [place] [facility] Tdap 2015-06-01 Completed University of 00:00:00 [facility] Tdap 2015-06-01 Completed University of 00:00:00 [facility] Vital Signs Vital Name Observation Time Observation Value Comments Source Body height 2022-09-21 19:22:00 162.6 cm Rachna Elder cristinabold - External Systolic blood 2022-09-13 21:37:00 140 mm[Hg] Rachna Seybold - pressure External Diastolic blood 2022-09-13 21:37:00 79 mm[Hg] Tyrone esparza Seybold - pressure External Heart rate 2022-09-13 21:37:00 84 /min Rachna Elder evansbold - External Body temperature 2022-09-13 21:37:00 37.06 Joanna Trinh evans Seybold - External Respiratory rate 2022-09-13 21:37:00 14 /min Trinh evans Seybold - External Body height 2022-09-13 21:37:00 162.6 cm Rachna Elder eybold - External Body weight 2022-09-13 21:37:00 58.786 kg Rachna Elder eybold - External BMI 2022-09-13 21:37:00 22.25 kg/m2 Rachna Elder eybold - External Oxygen saturation in 2022-09-13 21:37:00 99 /min Rachna Castañeda - Arterial blood by External Pulse oximetry Systolic blood 2022-04-17 21:30:00 108 mm[Hg] Univer sity of pressure [facility] Diastolic blood 2022-04-17 21:30:00 77 mm[Hg] Unive rsity of pressure [facility] Heart rate 2022-04-17 21:30:00 74 /min Universi ty of [place] [facility] Respiratory rate 2022-04-17 21:30:00 24 /min Univ ersity of [facility] Oxygen saturation in 2022-04-17 21:30:00 97 /min University Arterial blood by [facility] Pulse oximetry Branch Body temperature 2022-04-17 21:14:00 37.33 Joanna Univ ersity of [facility] Body height 2022-04-17 21:14:00 162.6 cm Universi ty of [place] [facility] Body weight 2022-04-17 21:14:00 78.472 kg Universi ty of [place] [facility] BMI 2022-04-17 21:14:00 29.70 kg/m2 Universi ty of [facility] Systolic blood 2020-12-24 14:35:00 126 mm[Hg] Univer sity of pressure [place] [facility] Diastolic blood 2020-12-24 14:35:00 79 mm[Hg] Unive rsity of pressure [facility] Heart rate 2020-12-24 14:35:00 72 /min Universi ty of [facility] Body temperature 2020-12-24 14:35:00 37.28 Joanna Univ ersity of [facility] Respiratory rate 2020-12-24 14:35:00 16 /min Univ ersity of [facility] Body height 2020-12-24 14:35:00 162.6 cm Universi ty of [place] [facility] Body weight 2020-12-24 14:35:00 81.103 kg Universi ty of [place] [facility] BMI 2020-12-24 14:35:00 30.69 kg/m2 Universi ty of [place] [facility] Systolic blood 2020-02-25 18:20:00 139 mm[Hg] Univer sity of pressure [facility] Diastolic blood 2020-02-25 18:20:00 87 mm[Hg] Unive rsity of pressure [facility] Heart rate 2020-02-25 18:20:00 88 /min Universi ty of [place] [facility] Body temperature 2020-02-25 18:20:00 37 Joanna Univ ersity of [place] [facility] Respiratory rate 2020-02-25 18:20:00 16 /min Univ ersity of [facility] Body height 2020-02-25 18:20:00 162.6 cm Universi ty [facility] [place] [facility] Body weight 2020-02-25 18:20:[address] [facility] BMI 2020-02-25 18:20:00 32.12 kg/m2 [facility] Heart rate 2020-01-19 19:44:00 89 /min [facility] Body temperature 2020-01-19 19:44:00 36.5 Joanna [facility] Respiratory rate 2020-01-19 19:44:00 16 /min [facility] Body height 2020-01-19 19:44:[address] [facility] Body weight 2020-01-19 19:44:[address] [facility] BMI 2020-01-19 19:44:00 31.64 kg/m2 [facility] Systolic blood 2020-01-19 19:44:00 132 mm[Hg] [facility] Di[facility] blood 2020-01-19 19:44:00 88 mm[Hg] [place] [facility] 2022-07-02 16:41:41 [facility] Temperature Oral (F) 2022-07-02 16:41:35 99.3 F [facility] Systolic (mm Hg) 2022-07-02 16:41:28 Yung [facility] Diastolic (mm Hg) 2022-07-02 16:41:28 Mem orial [facility] Temperature Oral (F) 2022-06-30 21:00:00 97.7 F [facility] Systolic (mm Hg) 2022-06-26 04:00:00 Yung [facility] Diastolic (mm Hg) 2022-06-26 04:00:00 Mem orial [facility] Respitory Rate 2022-06-26 04:00:00 Memori al [facility] Respitory Rate 2022-06-26 03:00:00 Memori al [facility] Systolic (mm Hg) 2022-06-26 03:00:00 Yung [facility] Diastolic (mm Hg) 2022-06-26 03:00:00 Mem [facility] Respitory Rate 2022-06-26 02:00:00 Memori al [facility] Systolic (mm Hg) 2022-06-26 02:00:00 Yung [facility] Diastolic (mm Hg) 2022-06-26 02:00:00 Mem [facility] Temperature Oral (F) 2022-06-25 21:00:00 97.2 F [facility] Temperature Oral (F) 2022-06-25 17:05:00 97.8 F [facility] Temperature Oral (F) 2022-06-25 13:19:00 97.9 F [facility] Height 2022-06-23 20:26:00 162.56 cm [facility] Weight 2022-06-23 20:26:00 [facility] Height 2022-06-23 19:00:00 5 [ft_i] [facility] Weight 2022-06-23 19:00:00 [facility] BMI Calculated 2022-06-23 19:00:00 [facility] Heart Rate 2022-06-23 16:07:59 [facility] Systolic (mm Hg) 2022-06-23 16:07:38 Yung [facility] Diastolic (mm Hg) 2022-06-23 16:07:38 Mem [facility] Temperature Oral (F) 2022-06-23 16:07:36 99.1 F [facility] Temperature Oral (F) 2022-06-21 21:10:00 97.8 F [facility] Height 2022-06-21 08:42:00 5 [ft_i] [facility] Weight 2022-06-21 08:42:00 [facility] BMI Calculated 2022-06-21 08:42:00 Memori al [facility] Systolic (mm Hg) 2022-06-21 06:59:00 Yung rial [facility] Diastolic (mm Hg) 2022-06-21 06:59:00 Mem [facility] Respitory Rate 2022-06-21 06:59:00 Memori [facility] Respitory Rate 2022-06-21 06:00:00 Memori [facility] Systolic (mm Hg) 2022-06-21 06:00:00 Yung rial [facility] Diastolic (mm Hg) 2022-06-21 06:00:00 Mem orial [facility] Respitory Rate 2022-06-21 05:00:00 Memori al [facility] Systolic (mm Hg) 2022-06-21 05:00:00 Yung [facility] Diastolic (mm Hg) 2022-06-21 05:00:00 Mem [facility] Heart Rate 2022-06-21 02:58:00 [facility] Dayo Heart Rate 2022-06-21 00:55:00 [facility] Dayo Height 2022-06-21 00:32:00 162.56 [facility] Calculated 2022-06-21 00:32:00 Toya al [facility] Weight 2022-06-21 00:32:00 [facility] Temperature Oral (F) 2022-06-21 00:32:00 98.5 F [facility] Heart Rate 2022-06-21 00:32:00 [facility] Procedures Procedure Date / Time Performing Clinician Source Performed XR CHEST 1 VW 2022-04-17 22:08:00 Juana Rodriguez [facility] TROPONIN I 2022-04-17 21:50:00 Juana Rodriguez [facility] COMP. METABOLIC PANEL 2022-04-17 21:50:00 Juana Rodriguez [facility] ([id number]) [facility] CBC WITH DIFF 2022-04-17 21:50:00 Juana Rodriguez [facility] LACTIC ACID WHOLE BLOOD 2022-04-17 21:50:00 Juana Rodriguez [facility] ASSIGNMENT OF BENEFITS 2020-12-24 14:09:37 Doctor Unassigned, No [facility] BCCS-RELATED 2020-01-16 05:01:00 Doctor Unassigned, No [facility] DOCUMENTATION Name [facility] Surgery [facility] Encounters Start End Encounter Admission Attending Care Care Encounter Source Date/Time Date/Time Type Type Clinicians Facility Department ID 2022-10-05 Outpatient [facility] [id number] [place] 10:08:58 [id number] [facility] 2022-08-07 Outpatient [facility] [id number] [place] 08:32:58 [id number] [facility] 2022-07-24 Outpatient [facility] [id number] [place] 11:32:56 [id number] [facility] 2022-07-19 Outpatient [facility] [id number] [place] 16:06:29 [id number] [facility] 2022-11-21 2022-11-21 Outpatient RACHNA RODRIGUEZ RACHNA [id number] Rachna 10:00:00 10:00:00 AHMED Seybol d 2022-11-13 2022-11-13 Outpatient ZEKE BETTENCOURT RACHNA GORMAN [id number] Rachna 09:30:00 09:30:00 Seybol d 2022-11-02 2022-11-02 Outpatient DEANNA RACHNA GORMAN [id number] Rachna 10:00:00 10:00:00 NEETU Seybol d 2022-10-24 2022-10-24 Outpatient JHONGABRIELAOSRACHNA [id number] Rachna 09:45:00 09:45:00 RADHIKA Seybo ld 2022-10-20 2022-10-20 Outpatient PRERACHNA FUENTES [id number] Rachna 00:00:00 00:00:00 ALEENA Seybol d 2022-10-17 2022-10-17 Outpatient MICHAEL RACHNA GORMAN [id number] Rachna 09:30:00 09:30:00 AHMED Seybol d 2022-10-03 2022-10-03 Outpatient MARIBELRACHNA LEUNG [id number] Rachna 11:00:00 11:00:00 CORAZON Seybol d 2022-10-03 2022-10-03 Outpatient PREZARACHNA Friedman [id number] Rachna 00:00:00 00:00:00 ALEENA Seybol d 2022-09-28 2022-09-28 Outpatient PRERACHNA FUENTES [id number] Rachna 00:00:00 00:00:00 ALEENA Seybol d 2022-09-27 2022-09-27 Outpatient PREZARAHCNA Friedman [id number] Rachna 00:00:00 00:00:00 ALEENA Seybol d 2022-09-22 2022-09-22 Outpatient HOBRACHNA SCHNEIDER [id number] Rachna 10:45:00 10:45:00 CHRISTOPHRODERICK Se ybold 2022-09-22 2022-09-22 Outpatient PREZARACHNA Friedman [id number] Rachna 00:00:00 00:00:00 ALEENA Seybol d 2022-09-22 2022-09-22 Outpatient PREZASRACHNA RACHNA [id number] Rachna 00:00:00 00:00:00 ALEENA Seybol d 2022-09-21 2022-09-21 Outpatient RACHNA HUERTA RACHNA [id number] Rachna 13:30:00 13:30:00 NEETU Seybol d 2022-09-21 2022-09-21 Outpatient LAB90 RACHNA GORMAN [id number] Rachna 09:35:00 09:35:00 Seybol d 2022-09-21 2022-09-21 Outpatient ISSACSEYONTrevon RACHNA GORMAN [id number] Rachna 00:00:00 00:00:00 MD FRANCESCO Seybol d 2022-09-20 2022-09-20 Outpatient PREZAS RACHNA GORMAN [id number] Rachna 00:00:00 00:00:00 ALEENA Seybol d 2022-09-14 2022-09-14 Outpatient MICHAEL RACHNA GORMAN [id number] Rachna 00:00:00 00:00:00 AHMED Seybol d 2022-09-14 2022-09-14 Outpatient PREZAS RACHNA GORMAN [id number] Rachna 00:00:00 00:00:00 ALEENA Seybol d 2022-09-13 2022-09-13 Outpatient PREZAElder RACHNA GORMAN [id number] Rachna 15:45:00 15:45:00 ALEENA Seybol d 2022-08-07 2022-08-07 Outpatient [facility] [id number] [place] 11:00:00 11:00:00 [facility] 2022-06-23 2022-07-02 Inpatient nullFlavo [facility] [id number] Memoria 19:30:00 20:45:00 [facility] 94 [facility] 2022-06-23 2022-07-02 Inpatient nullFlavo [facility] [id number] Memoria 19:30:00 20:45:00 [facility] 94 [facility] 2022-06-23 2022-07-02 [facility] [id number] 14:30:00 15:45:[address] 2022-06-23 2022-07-02 Inpatient U [facility] MED [id number] [facility] 14:30:00 15:45:00 NEFTALI 2022-06-21 2022-06-23 Inpatient nullFlavo [facility] [id number] Memoria 08:19:00 19:00:00 r Dayo 92 l [facility] 2022-06-21 2022-06-23 Inpatient nullFlavo [facility] [id number] Memoria 08:19:00 19:00:00 r Dayo 92 l [facility] 2022-06-23 2022-06-23 Outpatient Mary [facility] [id number] 14:30:00 14:30:00 Neftali Tonia Moses 2022-06-21 2022-06-23 Inpatient U [facility] [id number] [facility] 03:19:00 14:00:00 ALIZA 2022-06-21 2022-06-23 [address] [facility] [id number] 03:19:00 14:00:00 Aliza 92 Shireen 2022-06-21 2022-06-21 Outpatient [facility] [id number] [place] 12:30:00 12:30:00 YAHAIRA Zurita 2022-06-21 2022-06-21 Emergency nullFlavo [facility] [id number] Memoria 00:31:51 07:22:00 r Dayo 00 l [facility] 2022-06-21 2022-06-21 Emergency nullFlavo [facility] [id number] Memoria 00:31:51 07:22:00 r Dayo 00 l [facility] 2022-06-20 2022-06-21 Outpatient Iheme, Britney [facility] MHPL [id number] 19:31:51 02:22:00 U 00 2022-06-20 2022-06-21 Outpatient Iheme, Britney [facility]PL [facility]PL [id number] 19:31:51 02:22:00 U 00 2022-06-20 2022-06-21 Emergency E IHEME, BRITNEY MHBL MHBL [id number] MHBL 19:31:00 02:22:00 2022-04-17 2022-04-17 Emergency X MICHAEL MIMB ERT [id number] Univers 16:08:00 19:03:00 JUANA ward of [facility] 2022-04-17 2022-04-17 [facility] [id number] Univers 16:08:00 19:03:[address] [id number] ity of [id number] [id number] [facility] 084 [place] 2021-01-04 2021-01-04 Outpatient R NAVIN, [facility] [id number] Univers 13:45:00 13:45:00 MUSA pabon [facility] 2020-12-24 2020-12-24 [facility] [id number] Univers 09:16:09 10:04:56 Visit Musa Ng IT COMPLIANCE MANAGER [id number] ity [facility] [id number] [place] MATERNAL [phone] Med ical & CHILD [address] [place] [address] 2020-12-24 2020-12-24 Outpatient R NAVIN, [facility] [id number] Univers 09:00:00 09:00:00 MUSA pabon [facility] 2020-12-24 2020-12-24 Orders Doctor CHRIS [id number] Univers 00:00:00 00:00:00 Only Unassigned, ELLEN [id number] ity of [place] [facility] [id number] [place] [phone] [facility] 009 Branch 2020-11-16 2020-11-16 Patient Rohan [facility] [id number] Univers 00:00:00 00:00:00 Outreach Leandro GRAY [id number] i ty of [facility] [id number] [phone] [address] 2020-05-27 2020-05-27 Outpatient R AKINDANIELA, [facility] [id number] Univers 08:15:00 08:15:00 MUSA pabon [facility] 2020-05-27 2020-05-27 Outpatient R AKINDANIELA, [facility] [id number] Univers 08:15:00 08:15:00 MUSA ward o f [facility] 2020-05-27 2020-05-27 Outpatient R [facility] [id number] Univers 07:45:00 07:45:00 ity of [facility] 2020-02-25 2020-02-25 Office Janinejhongalen, [facility] [id number] Univers 13:05:53 13:56:05 Visit Musa C IT COMPLIANCE MANAGER [id number] ity of [facility] [id number] [place] MATERNAL [phone] [facility] & CHILD [address] [place] [address] 2020-02-25 2020-02-25 Outpatient R NAVIN, [facility] [id number] Univers 13:15:00 13:15:00 MUSA ward o [facility] [place] 2020-02-25 2020-02-25 Outpatient R AKINSIPE, [facility] [id number] Univers 13:15:00 13:15:00 MUSA ward o [facility] [place] 2020-02-25 2020-02-25 Outpatient R JANINESIGALEN, [facility] [id number] Univers 13:15:00 13:15:00 MUSA ward o [facility] [place] 2020-01-19 2020-01-19 Nurse Visit, Ang-Rmchp Nurse [facility] [id number] Univers 14:11:10 14:26:10 Visit Musa Holden IT COMPLIANCE MANAGER [id number]. 10 ity of [facility] [id number] [place] MATERNAL [id number] [facility] & CHILD [address] [place] [address] 2020-01-19 2020-01-19 [facility] [id number] Univers 08:10:27 11:02:57 ne Visit Musa C IT COMPLIANCE MANAGER [id number] ity of [facility] [id number] [place] MATERNAL [id number] [facility] ical & CHILD [address] [place] [address] 2020-01-19 2020-01-19 Outpatient R NAVIN, [facility] [id number] Univers 10:45:00 10:45:00 MUSA ward o f [facility] 2020-01-19 2020-01-19 Outpatient R NAVIN, [facility] [id number] Univers 10:45:00 10:45:00 MUSA geriy o f [facility] 2020-01-16 2020-01-16 Orders Doctor CHRIS [id number] Univers 00:00:00 00:00:00 Only Unassigned, ELLEN [id number] ity of [place] [facility] [id number] [place] [id number] [address] 2019-12-27 2019-12-27 Emergency X FAN, [facility] ERT [id number] Univers 10:42:28 13:30:00 MARYBEL [facility] 2019-12-19 2019-12-19 Telephone Pcp, [facility] [id number] Univers 00:00:00 00:00:00 Patient IT COMPLIANCE MANAGER [id number] it y of [id number]NAL [phone] Med ical & CHILD 107 [facility] Results Test Description Test Time Test Comments Results Result Comments Source POINT OF CARE 2022-07-02 16:40:00 Test Item Value Reference Range Interpretation Comme nts Glucose POC (test code = Glucose POC) 180 [facility]2022-10-30 16:40:00 Test Item Value Reference Range Interpretation Comments Gluc POC Comment 1 (test code Notified RN/MD = Gluc POC Comment 1) [facility]2022-10-30 16:40:00 Test Item Value Reference Range Interpretation Comments Glucose POC (test code = Glucose POC) 180 70- [facility]2022-10-30 16:40:00 Test Item Value Reference Range Interpretation Comments Gluc POC Comment 1 (test code Notified RN/MD = Gluc POC Comment 1) [facility]2022-10-30 16:40:00 Test Item Value Reference Range Interpretation Comments Glucose POC (test code = Glucose POC) 180 70- [place] [id number] 16:40:00 Test Item Value Reference Range Interpretation Comments Gluc POC Comment 1 (test code Notified RN/MD = Gluc POC Comment 1) [place] 013132-10-30 16:40:00 Test Item Value Reference Range Interpretation Comments Glucose POC (test code = Glucose POC) 180 [place] [address]-10-30 16:40:00 Test Item Value Reference Range Interpretation Comments Gluc POC Comment 1 (test code Notified RN/MD = Gluc POC Comment 1) [place] 013132-10-30 16:40:00 Test Item Value Reference Range Interpretation Comments Glucose POC (test code = Glucose POC) 180 [place] 777[address]-10-30 16:40:00 Test Item Value Reference Range Interpretation Comments Gluc POC Comment 1 (test code Notified RN/MD = Gluc POC Comment 1) [place] [id number] 16:40:00 Test Item Value Reference Range Interpretation Comments Glucose POC (test code = Glucose POC) 180 [place] 013132-10-30 16:40:00 Test Item Value Reference Range Interpretation Comments Gluc POC Comment 1 (test code Notified RN/MD = Gluc POC Comment 1) [place] 013132-10-30 16:40:00 Test Item Value Reference Range Interpretation Comments Glucose POC (test code = Glucose POC) [address] [place] 013132-10-30 16:40:00 Test Item Value Reference Range Interpretation Comments Gluc POC Comment 1 (test code Notified RN/MD = Gluc POC Comment 1) [place] 286112-10-30 10:15:00 Test Item Value Reference Range Interpretation Comments Glucose Lvl (test code = Glucose Lvl) 141 [place] 286112-10-30 10:15:00 Test Item Value Reference Range Interpretation Comments BUN (test code = BUN) 12 03-24 [place] 286112-10-30 10:15:00 Test Item Value Reference Range Interpretation Comments Creatinine Lvl (test code = Creatinine 0.42 0.50-1.40 Lvl) [place] 286112-10-30 10:15:00 Test Item Value Reference Range Interpretation Comments Sodium Lvl (test code = Sodium Lvl) 135 135-145 [facility]TdusarmSGDTCCTCT9991-64-78 10:15:00 Test Item Value Reference Range Interpretation Comments Potassium Lvl (test code = Potassium 4.2 3.5-5.1 Lvl) [facility] HospitalVuxvoibDENMEESCY8653-14-15 10:15:00 Test Item Value Reference Range Interpretation Comments Chloride Lvl (test code = Chloride Lvl) 101 95-109 [facility] HospitalLtkjnjbZNGSPNAFQ2820-56-59 10:15:00 Test Item Value Reference Range Interpretation Comments CO2 (test code = CO2) 30 24-32 [facility] HospitalPukgezyUPLLDLMER1716-89-17 10:15:00 Test Item Value Reference Range Interpretation Comments AGAP (test code = AGAP) 8.2 10.0-20.0 [facility] HospitalIrcqrsrRIOZYZFSD6643-98-86 10:15:00 Test Item Value Reference Range Interpretation Comments Calcium Lvl (test code = Calcium Lvl) 8.9 8.5-10.5 [facility] HospitalKxqtrbzGRRXMJUTN1637-58-82 10:15:00 Test Item Value Reference Range Interpretation Comments eGFR (test code = eGFR) 116 [facility] HospitalOozyalhHEOAGFQMD3574-26-06 10:15:00 Test Item Value Reference Range Interpretation Comments Magnesium Lvl (test code = Magnesium 1.9 1.8-2.4 Lvl) [facility] HospitalZibrojiKZCNOULJC2939-20-15 10:15:00 Test Item Value Reference Range Interpretation Comments Phosphorus (test code = Phosphorus) 4.2 2.5-4.5 [facility] HospitalThguddpRUQGXVXTK4847-95-62 10:15:00 Test Item Value Reference Range Interpretation Comments Ca Ion WB (test code = Ca Ion WB) 1.23 1.05-1.25 [facility] HospitalCmzjbmrVOPLPSVLU8296-08-84 10:15:00 Test Item Value Reference Range Interpretation Comments Ca Ion at pH 7.4 WB (test code = Ca Ion 1.19 1.05-1.25 at pH 7.4 WB) [facility] HospitalBkmwjwdXVTAUESFME0607-88-07 10:15:00 Test Item Value Reference Range Interpretation Comments WBC (test code = WBC) 10.9 3.7-10.4 [facility] HospitalNioyznsVPBJEZOHNP2717-17-27 10:15:00 Test Item Value Reference Range Interpretation Comments RBC (test code = RBC) 2.89 4.20-5.40 [facility] HospitalEhxxestUNYGJTIPPB2428-95-19 10:15:00 Test Item Value Reference Range Interpretation Comments Hgb (test code = Hgb) 8.2 12.0-16.0 [facility] HospitalEqfcrkwZNNUXOTQCI9565-95-50 10:15:00 Test Item Value Reference Range Interpretation Comments Hct (test code = Hct) 24.5 36.0-48.0 [facility] HospitalVnkbhzvUJCZRJRVBC5365-67-33 10:15:00 Test Item Value Reference Range Interpretation Comments MCV (test code = MCV) 84.7 80.0-98.0 [facility] HospitalXpbzeevDOJZOMDRQK5672-22-28 10:15:00 Test Item Value Reference Range Interpretation Comments MCH (test code = MCH) 28.4 pg 27.0-31.0 [facility] HospitalWdzjsvwGBEMRZDMIK2645-68-17 10:15:00 Test Item Value Reference Range Interpretation Comments MCHC (test code = MCHC) 33.5 32.0-36.0 [facility] HospitalGizjurrCTFQAAVPVG5389-19-84 10:15:00 Test Item Value Reference Range Interpretation Comments RDW (test code = RDW) 13.5 11.5-14.5 [facility] HospitalJjlklhuYWNWBHGEFN9556-14-62 10:15:00 Test Item Value Reference Range Interpretation Comments Platelet (test code = Platelet) 459 370-450 [facility] HospitalMwqwdokRHEECCFADL6337-66-40 10:15:00 Test Item Value Reference Range Interpretation Comments MPV (test code = MPV) 8.1 7.4-10.4 [place] 587612-10-30 10:15:00 Test Item Value Reference Range Interpretation Comments Segs (test code = Segs) 59.9 45.0-75.0 [facility] HospitalTubgidgIDQRRIECAS7724-82-84 10:15:00 Test Item Value Reference Range Interpretation Comments Lymphocytes (test code = Lymphocytes) 31.3 20.0-40.0 [place] 587612-10-30 10:15:00 Test Item Value Reference Range Interpretation Comments Monocytes (test code = Monocytes) 4.9 2.0-12.0 [place] 587612-10-30 10:15:00 Test Item Value Reference Range Interpretation Comments Eosinophils (test code = 3.3 See_Comment [A utomated message] The Eosinophils) system which ge nerated this result tra nsmitted reference range : <=4.0. The reference r kyle was not used to int erpret this result as normal/abnormal . [facility] HospitalNmftwzxKBRQGJPXAD7541-40-20 10:15:00 Test Item Value Reference Range Interpretation Comments Basophils (test code = 0.6 See_Comment [Aut omated message] The Basophils) system which ge nerated this result tra nsmitted reference range : <=1.0. The reference r kyle was not used to int erpret this result as normal/abnormal . [facility] HospitalMnnbelyCITFMQGFXF0070-66-28 10:15:00 Test Item Value Reference Range Interpretation Comments Neutrophils # (test code = Neutrophils 6.5 1.5-8.1 #) [facility] HospitalOccenhgECOCZQXDTA8991-51-67 10:15:00 Test Item Value Reference Range Interpretation Comments Lymphocytes # (test code = Lymphocytes 3.4 1.0-5.5 #) [facility] HospitalHyasifyRJSQPOMSMG8009-42-38 10:15:00 Test Item Value Reference Range Interpretation Comments Monocytes # (test code 0.5 See_Comment [Aut omated message] The = Monocytes #) system which generated this result tra nsmitted reference range : <=0.8. The reference r kyle was not used to int erpret this result as normal/abnormal . [facility] HospitalPlcsapoFBJREUMGZN2908-78-26 10:15:00 Test Item Value Reference Range Interpretation Comments Eosinophils # (test code 0.4 See_Comment [A utomated message] The = Eosinophils #) system ic h generated this result tra nsmitted reference range : <=0.5. The reference r kyle was not used to int erpret this result as normal/abnormal . [facility] HospitalHacjtbcWTKXMZULPQ1670-12-81 10:15:00 Test Item Value Reference Range Interpretation Comments Basophils # (test code 0.1 See_Comment [Aut omated message] The = Basophils #) system which generated this result tra nsmitted reference range : <=0.2. The reference r kyle was not used to int erpret this result as normal/abnormal . [facility] HospitalZtpxlgaTWPYBWJSP1601-92-82 10:15:00 Test Item Value Reference Range Interpretation Comments Glucose Lvl (test code = Glucose Lvl) 141 70-99 [facility] HospitalQjntaciPKIKIDSBH0098-23-87 10:15:00 Test Item Value Reference Range Interpretation Comments BUN (test code = BUN) 12 7-22 [facility] HospitalPkiooghXXQYVUZPH5848-01-79 10:15:00 Test Item Value Reference Range Interpretation Comments Creatinine Lvl (test code = Creatinine 0.42 0.50-1.40 Lvl) [facility] HospitalLgtonqjFJWLHSSUJ8854-78-31 10:15:00 Test Item Value Reference Range Interpretation Comments Sodium Lvl (test code = Sodium Lvl) 135 135-145 [facility] HospitalUmklxwgGHRCWSCBE5129-09-93 10:15:00 Test Item Value Reference Range Interpretation Comments Potassium Lvl (test code = Potassium 4.2 3.5-5.1 Lvl) [facility] HospitalHvcozcqVBONSJGOA9740-86-13 10:15:00 Test Item Value Reference Range Interpretation Comments Chloride Lvl (test code = Chloride Lvl) 101 95-109 [facility] HospitalKfxhbsmTFQJSOLRZ4935-75-31 10:15:00 Test Item Value Reference Range Interpretation Comments CO2 (test code = CO2) 30 24-32 [facility] HospitalBchzwbmHBQHVLTBM0496-26-63 10:15:00 Test Item Value Reference Range Interpretation Comments AGAP (test code = AGAP) 8.2 10.0-20.0 [facility] HospitalZeundmvAGKEQGUDL5467-06-21 10:15:00 Test Item Value Reference Range Interpretation Comments Calcium Lvl (test code = Calcium Lvl) 8.9 8.5-10.5 [facility] HospitalMzmjxteTGAYRWPPE8165-52-77 10:15:00 Test Item Value Reference Range Interpretation Comments eGFR (test code = eGFR) 116 [facility] HospitalIlbbmnhYJEUFQNJH2523-59-61 10:15:00 Test Item Value Reference Range Interpretation Comments Magnesium Lvl (test code = Magnesium 1.9 1.8-2.4 Lvl) [facility] HospitalVollihpGHAWEIEHK2012-80-87 10:15:00 Test Item Value Reference Range Interpretation Comments Phosphorus (test code = Phosphorus) 4.2 2.5-4.5 [facility] HospitalVqhqousQYTACJLZX2077-42-37 10:15:00 Test Item Value Reference Range Interpretation Comments Ca Ion WB (test code = Ca Ion WB) 1.23 1.05-1.25 [facility] HospitalJbqmoywUWZDSQEDM9266-53-99 10:15:00 Test Item Value Reference Range Interpretation Comments Ca Ion at pH 7.4 WB (test code = Ca Ion 1.19 1.05-1.25 at pH 7.4 WB) [facility] HospitalRhqzakqRAEUYHMTXN2155-00-31 10:15:00 Test Item Value Reference Range Interpretation Comments WBC (test code = WBC) 10.9 3.7-10.4 [facility] HospitalEcrrwjuKDOUVUIZMW4121-55-14 10:15:00 Test Item Value Reference Range Interpretation Comments RBC (test code = RBC) 2.89 4.20-5.40 [facility] HospitalCxbepwkIUTOIJDYOH1652-77-52 10:15:00 Test Item Value Reference Range Interpretation Comments Hgb (test code = Hgb) 8.2 12.0-16.0 [facility] HospitalHkiiitrOZWYHJWYLA8424-50-92 10:15:00 Test Item Value Reference Range Interpretation Comments Hct (test code = Hct) 24.5 36.0-48.0 [facility] HospitalVvhgeulZCNIHSNDJU4444-85-84 10:15:00 Test Item Value Reference Range Interpretation Comments MCV (test code = MCV) 84.7 80.0-98.0 [facility] HospitalTzknnkgKQYPKXIXGW4121-50-10 10:15:00 Test Item Value Reference Range Interpretation Comments MCH (test code = MCH) 28.4 pg 27.0-31.0 [facility] HospitalUpjbesfVRKZYBEYYC7037-77-79 10:15:00 Test Item Value Reference Range Interpretation Comments MCHC (test code = MCHC) 33.5 32.0-36.0 [facility] HospitalUdbquciJJJCXVBGQT1076-59-21 10:15:00 Test Item Value Reference Range Interpretation Comments RDW (test code = RDW) 13.5 11.5-14.5 [facility] HospitalNcixxdcHBOENTFSKH2711-74-99 10:15:00 Test Item Value Reference Range Interpretation Comments Platelet (test code = Platelet) 459 982-450 [facility] HospitalTssegurTSHPVDERSQ5066-85-02 10:15:00 Test Item Value Reference Range Interpretation Comments MPV (test code = MPV) 8.1 7.4-10.4 [place] 587612-10-30 10:15:00 Test Item Value Reference Range Interpretation Comments Segs (test code = Segs) 59.9 45.0-75.0 [facility] HospitalYfshfipGVPUBMGYRD3173-18-52 10:15:00 Test Item Value Reference Range Interpretation Comments Lymphocytes (test code = Lymphocytes) 31.3 20.0-40.0 [place] [address]-10-30 10:15:00 Test Item Value Reference Range Interpretation Comments Monocytes (test code = Monocytes) 4.9 2.0-12.0 [place] [address]-10-30 10:15:00 Test Item Value Reference Range Interpretation Comments Eosinophils (test code = 3.3 See_Comment [A utomated message] The Eosinophils) system which ge nerated this result tra nsmitted reference range : <=4.0. The reference r kyle was not used to int erpret this result as normal/abnormal . [place] [address]-10-30 10:15:00 Test Item Value Reference Range Interpretation Comments Basophils (test code = 0.6 See_Comment [Aut omated message] The Basophils) system which ge nerated this result tra nsmitted reference range : <=1.0. The reference r kyle was not used to int erpret this result as normal/abnormal . [place] 587612-10-30 10:15:00 Test Item Value Reference Range Interpretation Comments Neutrophils # (test code = Neutrophils 6.5 1.5-8.1 #) [place] [address]-10-30 10:15:00 Test Item Value Reference Range Interpretation Comments Lymphocytes # (test code = Lymphocytes 3.4 1.0-5.5 #) [place] 587612-10-30 10:15:00 Test Item Value Reference Range Interpretation Comments Monocytes # (test code 0.5 See_Comment [Aut omated message] The = Monocytes #) system which generated this result tra nsmitted reference range : <=0.8. The reference r kyle was not used to int erpret this result as normal/abnormal . [place] [address]-10-30 10:15:00 Test Item Value Reference Range Interpretation Comments Eosinophils # (test code 0.4 See_Comment [A utomated message] The = Eosinophils #) system whic h generated this result tra nsmitted reference range : <=0.5. The reference r kyle was not used to int erpret this result as normal/abnormal . [place] 587612-10-30 10:15:00 Test Item Value Reference Range Interpretation Comments Basophils # (test code 0.1 See_Comment [Aut omated message] The = Basophils #) system which generated this result tra nsmitted reference range : <=0.2. The reference r kyle was not used to int erpret this result as normal/abnormal . [facility] HospitalPmdvpcgUAKEUUMAD5946-45-58 10:15:00 Test Item Value Reference Range Interpretation Comments Glucose Lvl (test code = Glucose Lvl) 141 70-99 [facility] HospitalXhonsxiMDPMUKIQC5882-64-58 10:15:00 Test Item Value Reference Range Interpretation Comments BUN (test code = BUN) 12 7-22 [facility] HospitalPfizvrvNARGBOOFF7107-14-79 10:15:00 Test Item Value Reference Range Interpretation Comments Creatinine Lvl (test code = Creatinine 0.42 0.50-1.40 Lvl) [facility] HospitalRihumsfZLHVEKOFC5433-09-96 10:15:00 Test Item Value Reference Range Interpretation Comments Sodium Lvl (test code = Sodium Lvl) 135 135-145 [facility] HospitalIvfwtnmPYVEHSCDZ0078-09-71 10:15:00 Test Item Value Reference Range Interpretation Comments Potassium Lvl (test code = Potassium 4.2 3.5-5.1 Lvl) [facility] HospitalAdngthvMYPLWTCBM7372-69-39 10:15:00 Test Item Value Reference Range Interpretation Comments Chloride Lvl (test code = Chloride Lvl) 101 95-109 [facility] HospitalHmkhwtsPWNHLMBGS9410-23-89 10:15:00 Test Item Value Reference Range Interpretation Comments CO2 (test code = CO2) 30 24-32 [facility] HospitalEjwxjkdWHSHEHMRK8097-35-94 10:15:00 Test Item Value Reference Range Interpretation Comments AGAP (test code = AGAP) 8.2 10.0-20.0 [facility] HospitalWjezfsyTIGWMIIZW4851-50-30 10:15:00 Test Item Value Reference Range Interpretation Comments Calcium Lvl (test code = Calcium Lvl) 8.9 8.5-10.5 [facility] HospitalWodbyjxKVGDBHIJL2396-19-68 10:15:00 Test Item Value Reference Range Interpretation Comments eGFR (test code = eGFR) 116 [facility] HospitalVztkixzZGQUANIJR2032-78-17 10:15:00 Test Item Value Reference Range Interpretation Comments Magnesium Lvl (test code = Magnesium 1.9 1.8-2.4 Lvl) [facility] HospitalLejjogaLMHTYGUFQ5042-35-05 10:15:00 Test Item Value Reference Range Interpretation Comments Phosphorus (test code = Phosphorus) 4.2 2.5-4.5 [facility] HospitalUpqdmmfQXLNSAZSZ7614-42-06 10:15:00 Test Item Value Reference Range Interpretation Comments Ca Ion WB (test code = Ca Ion WB) 1.23 1.05-1.25 [facility] HospitalKdukodiGGKDRZSCI4652-18-19 10:15:00 Test Item Value Reference Range Interpretation Comments Ca Ion at pH 7.4 WB (test code = Ca Ion 1.19 1.05-1.25 at pH 7.4 WB) [facility] HospitalEokmwuvMGKELZYCBG6837-00-90 10:15:00 Test Item Value Reference Range Interpretation Comments WBC (test code = WBC) 10.9 3.7-10.4 [facility] HospitalYuakkkkJENLBQEZAA4040-81-27 10:15:00 Test Item Value Reference Range Interpretation Comments RBC (test code = RBC) 2.89 4.20-5.40 [facility] HospitalFqafaxdXEANZMJRJV4519-91-48 10:15:00 Test Item Value Reference Range Interpretation Comments Hgb (test code = Hgb) 8.2 12.0-16.0 [facility] HospitalXglzmvfXJAHTWUKRN7244-57-25 10:15:00 Test Item Value Reference Range Interpretation Comments Hct (test code = Hct) 24.5 36.0-48.0 [facility] HospitalHhrsuqqVYTZJYLGHM8392-02-11 10:15:00 Test Item Value Reference Range Interpretation Comments MCV (test code = MCV) 84.7 80.0-98.0 [facility] HospitalYbxypfnCDUHJDNPWA7456-64-19 10:15:00 Test Item Value Reference Range Interpretation Comments MCH (test code = MCH) 28.4 pg 27.0-31.0 [facility] HospitalFfixjriTSHOVRCBWY1129-86-72 10:15:00 Test Item Value Reference Range Interpretation Comments MCHC (test code = MCHC) 33.5 32.0-36.0 [facility] HospitalUaqhfnfDNNCYGSIQO6591-45-45 10:15:00 Test Item Value Reference Range Interpretation Comments RDW (test code = RDW) 13.5 11.5-14.5 [facility] HospitalOpziwtoCYBPGUPCEE0621-26-91 10:15:00 Test Item Value Reference Range Interpretation Comments Platelet (test code = Platelet) 459 579-450 [facility] HospitalYcnsojtWRUPIJEKAB9434-47-42 10:15:00 Test Item Value Reference Range Interpretation Comments MPV (test code = MPV) 8.1 7.4-10.4 [place] 587612-10-30 10:15:00 Test Item Value Reference Range Interpretation Comments Segs (test code = Segs) 59.9 45.0-75.0 [place] 587612-10-30 10:15:00 Test Item Value Reference Range Interpretation Comments Lymphocytes (test code = Lymphocytes) 31.3 20.0-40.0 [place] 587612-10-30 10:15:00 Test Item Value Reference Range Interpretation Comments Monocytes (test code = Monocytes) 4.9 2.0-12.0 [place] [address]-10-30 10:15:00 Test Item Value Reference Range Interpretation Comments Eosinophils (test code = 3.3 See_Comment [A utomated message] The Eosinophils) system which ge nerated this result tra nsmitted reference range : <=4.0. The reference r kyle was not used to int erpret this result as normal/abnormal . [place] 587612-10-30 10:15:00 Test Item Value Reference Range Interpretation Comments Basophils (test code = 0.6 See_Comment [Aut omated message] The Basophils) system which ge nerated this result tra nsmitted reference range : <=1.0. The reference r kyle was not used to int erpret this result as normal/abnormal . [facility] HospitalDbsolcsQUFUUTBPRB7900-37-09 10:15:00 Test Item Value Reference Range Interpretation Comments Neutrophils # (test code = Neutrophils 6.5 1.5-8.1 #) [place] 587612-10-30 10:15:00 Test Item Value Reference Range Interpretation Comments Lymphocytes # (test code = Lymphocytes 3.4 1.0-5.5 #) [place] [address]-10-30 10:15:00 Test Item Value Reference Range Interpretation Comments Monocytes # (test code 0.5 See_Comment [Aut omated message] The = Monocytes #) system which generated this result tra nsmitted reference range : <=0.8. The reference r kyle was not used to int erpret this result as normal/abnormal . [place] [address]-10-30 10:15:00 Test Item Value Reference Range Interpretation Comments Eosinophils # (test code 0.4 See_Comment [A utomated message] The = Eosinophils #) system whic h generated this result tra nsmitted reference range : <=0.5. The reference r kyle was not used to int erpret this result as normal/abnormal . [facility] HospitalBlvaeccHUCDQQBPWU7877-32-56 10:15:00 Test Item Value Reference Range Interpretation Comments Basophils # (test code 0.1 See_Comment [Aut omated message] The = Basophils #) system which generated this result tra nsmitted reference range : <=0.2. The reference r kyle was not used to int erpret this result as normal/abnormal . [facility] HospitalPzmkdjqBCHKNWEQQ2077-63-12 10:15:00 Test Item Value Reference Range Interpretation Comments Glucose Lvl (test code = Glucose Lvl) 141 70-99 [facility] HospitalAhjtbhwXBXCMDPNM0749-94-07 10:15:00 Test Item Value Reference Range Interpretation Comments BUN (test code = BUN) 12 7-22 [facility] HospitalGkjhiuuJRJTHFALG5963-06-88 10:15:00 Test Item Value Reference Range Interpretation Comments Creatinine Lvl (test code = Creatinine 0.42 0.50-1.40 Lvl) [facility] HospitalRkeleuaTIWYZKWDG3810-27-97 10:15:00 Test Item Value Reference Range Interpretation Comments Sodium Lvl (test code = Sodium Lvl) 135 135-145 [facility] HospitalTewozeiWKTGHQJTV8809-52-57 10:15:00 Test Item Value Reference Range Interpretation Comments Potassium Lvl (test code = Potassium 4.2 3.5-5.1 Lvl) [facility] HospitalXfdntumJEODKEJQC9796-02-14 10:15:00 Test Item Value Reference Range Interpretation Comments Chloride Lvl (test code = Chloride Lvl) 101 95-109 [facility] HospitalRfbflcnMECJJZFNO0316-78-20 10:15:00 Test Item Value Reference Range Interpretation Comments CO2 (test code = CO2) 30 24-32 [facility] HospitalKzskoleMSXTIQGIU8307-25-78 10:15:00 Test Item Value Reference Range Interpretation Comments AGAP (test code = AGAP) 8.2 10.0-20.0 [facility] HospitalFleijnjIWDRRNMZY2499-61-35 10:15:00 Test Item Value Reference Range Interpretation Comments Calcium Lvl (test code = Calcium Lvl) 8.9 8.5-10.5 [facility] HospitalZmekyjzJQDQUGDVD5302-09-84 10:15:00 Test Item Value Reference Range Interpretation Comments eGFR (test code = eGFR) 116 [facility] HospitalDhceigxAJOLQUMQB5422-34-07 10:15:00 Test Item Value Reference Range Interpretation Comments Magnesium Lvl (test code = Magnesium 1.9 1.8-2.4 Lvl) [facility] HospitalImeliiiRIETCTOPA3997-30-10 10:15:00 Test Item Value Reference Range Interpretation Comments Phosphorus (test code = Phosphorus) 4.2 2.5-4.5 [facility] HospitalCzyxurwEIZKGQRQN2126-73-92 10:15:00 Test Item Value Reference Range Interpretation Comments Ca Ion WB (test code = Ca Ion WB) 1.23 1.05-1.25 [facility] HospitalPtnmtoaJVYENFTMF6568-13-32 10:15:00 Test Item Value Reference Range Interpretation Comments Ca Ion at pH 7.4 WB (test code = Ca Ion 1.19 1.05-1.25 at pH 7.4 WB) [facility] HospitalGdoycxmZGPSAJFXTI1938-88-57 10:15:00 Test Item Value Reference Range Interpretation Comments WBC (test code = WBC) 10.9 3.7-10.4 [facility] HospitalEkloykdAQJMHWJYVL3011-24-90 10:15:00 Test Item Value Reference Range Interpretation Comments RBC (test code = RBC) 2.89 4.20-5.40 [facility] HospitalHedlfdsLELYICITSJ2764-61-97 10:15:00 Test Item Value Reference Range Interpretation Comments Hgb (test code = Hgb) 8.2 12.0-16.0 [facility] HospitalOetrrrxZAGMQEKNKE0676-54-65 10:15:00 Test Item Value Reference Range Interpretation Comments Hct (test code = Hct) 24.5 36.0-48.0 [facility] HospitalFzyluyyIQLZLIYTLV2915-71-35 10:15:00 Test Item Value Reference Range Interpretation Comments MCV (test code = MCV) 84.7 80.0-98.0 [place] 587612-10-30 10:15:00 Test Item Value Reference Range Interpretation Comments MCH (test code = MCH) 28.4 pg 27.0-31.0 [facility] HospitalBhsnyoxYSZPOHRZUN1049-81-57 10:15:00 Test Item Value Reference Range Interpretation Comments MCHC (test code = MCHC) 33.5 32.0-36.0 [facility] HospitalDptyqknLUKIYACCUK7437-59-43 10:15:00 Test Item Value Reference Range Interpretation Comments RDW (test code = RDW) 13.5 11.5-14.5 [place] 587612-10-30 10:15:00 Test Item Value Reference Range Interpretation Comments Platelet (test code = Platelet) 459 133450 [place] 587612-10-30 10:15:00 Test Item Value Reference Range Interpretation Comments MPV (test code = MPV) 8.1 7.4-10.4 [place] 587612-10-30 10:15:00 Test Item Value Reference Range Interpretation Comments Segs (test code = Segs) 59.9 45.0-75.0 [place] 587612-10-30 10:15:00 Test Item Value Reference Range Interpretation Comments Lymphocytes (test code = Lymphocytes) 31.3 20.0-40.0 [place] 587612-10-30 10:15:00 Test Item Value Reference Range Interpretation Comments Monocytes (test code = Monocytes) 4.9 2.0-12.0 [place] 587612-10-30 10:15:00 Test Item Value Reference Range Interpretation Comments Eosinophils (test code = 3.3 See_Comment [A utomated message] The Eosinophils) system which ge nerated this result tra nsmitted reference range : <=4.0. The reference r kyle was not used to int erpret this result as normal/abnormal . [place] [facility]bjadriWEAGNTNMHH6128-09-57 10:15:00 Test Item Value Reference Range Interpretation Comments Basophils (test code = 0.6 See_Comment [Aut omated message] The Basophils) system which ge nerated this result tra nsmitted reference range : <=1.0. The reference r kyle was not used to int erpret this result as normal/abnormal . [facility]NznahpqMBFFTHZZNA3618-14-59 10:15:00 Test Item Value Reference Range Interpretation Comments Neutrophils # (test code = Neutrophils 6.5 1.5-8.1 #) [place] 587612-10-30 10:15:00 Test Item Value Reference Range Interpretation Comments Lymphocytes # (test code = Lymphocytes 3.4 1.0-5.5 #) [place] 587612-10-30 10:15:00 Test Item Value Reference Range Interpretation Comments Monocytes # (test code 0.5 See_Comment [Aut omated message] The = Monocytes #) system which generated this result tra nsmitted reference range : <=0.8. The reference r kyle was not used to int erpret this result as normal/abnormal . [facility]PgdxslrIUVUGUWYGR3223-23-53 10:15:00 Test Item Value Reference Range Interpretation Comments Eosinophils # (test code 0.4 See_Comment [A utomated message] The = Eosinophils #) system whic h generated this result tra nsmitted reference range : <=0.5. The reference r kyle was not used to int erpret this result as normal/abnormal . [facility] CenterVpmuknfLATSGOOEZF0938-89-07 10:15:00 Test Item Value Reference Range Interpretation Comments Basophils # (test code 0.1 See_Comment [Aut omated message] The = Basophils #) system which generated this result tra nsmitted reference range : <=0.2. The reference r kyle was not used to int erpret this result as normal/abnormal . [facility] CenterRsiiiouQBWNRVHAY9711-53-27 10:15:00 Test Item Value Reference Range Interpretation Comments Glucose Lvl (test code = Glucose Lvl) 141 70-99 [facility] CenterAodhgidJMOWOVFSJ3651-40-54 10:15:00 Test Item Value Reference Range Interpretation Comments BUN (test code = BUN) 12 7-22 [facility] CenterRukgvxrQVIEFQDCM9525-37-35 10:15:00 Test Item Value Reference Range Interpretation Comments Creatinine Lvl (test code = Creatinine 0.42 0.50-1.40 Lvl) [facility] CenterJixcnelOPYNBKUKP1400-15-68 10:15:00 Test Item Value Reference Range Interpretation Comments Sodium Lvl (test code = Sodium Lvl) 135 135-145 [facility] CenterWionfwqOXYGTCWXT2034-02-40 10:15:00 Test Item Value Reference Range Interpretation Comments Potassium Lvl (test code = Potassium 4.2 3.5-5.1 Lvl) [facility] CenterMyytldgZRCBBVFQP3470-44-30 10:15:00 Test Item Value Reference Range Interpretation Comments Chloride Lvl (test code = Chloride Lvl) 101 95-109 [facility] CenterZhdtrflAHBJCQWJR2208-17-59 10:15:00 Test Item Value Reference Range Interpretation Comments CO2 (test code = CO2) 30 24-32 [facility] CenterXhqhcokHARWBWTXG3291-15-16 10:15:00 Test Item Value Reference Range Interpretation Comments AGAP (test code = AGAP) 8.2 10.0-20.0 [place] 286112-10-30 10:15:00 Test Item Value Reference Range Interpretation Comments Calcium Lvl (test code = Calcium Lvl) 8.9 8.5-10.5 [place] 286112-10-30 10:15:00 Test Item Value Reference Range Interpretation Comments eGFR (test code = eGFR) 116 [facility]OnitnvfQWPBKPQOY4236-71-43 10:15:00 Test Item Value Reference Range Interpretation Comments Magnesium Lvl (test code = Magnesium 1.9 1.8-2.4 Lvl) [facility] HospitalHesvvewFQXBPXBHJ8310-85-64 10:15:00 Test Item Value Reference Range Interpretation Comments Phosphorus (test code = Phosphorus) 4.2 2.5-4.5 [facility] HospitalObkyjebGQDBNFXEQ3965-60-27 10:15:00 Test Item Value Reference Range Interpretation Comments Ca Ion WB (test code = Ca Ion WB) 1.23 1.05-1.25 [place] 286112-10-30 10:15:00 Test Item Value Reference Range Interpretation Comments Ca Ion at pH 7.4 WB (test code = Ca Ion 1.19 1.05-1.25 at pH 7.4 WB) [facility] HospitalWizitypZMMWGGEKGW3346-32-54 10:15:00 Test Item Value Reference Range Interpretation Comments WBC (test code = WBC) 10.9 3.7-10.4 [facility] HospitalNvxylutXYZJPXMEHY1855-38-58 10:15:00 Test Item Value Reference Range Interpretation Comments RBC (test code = RBC) 2.89 4.20-5.40 [place] 587612-10-30 10:15:00 Test Item Value Reference Range Interpretation Comments Hgb (test code = Hgb) 8.2 12.0-16.0 [place] [address]-10-30 10:15:00 Test Item Value Reference Range Interpretation Comments Hct (test code = Hct) 24.5 36.0-48.0 [place] 587612-10-30 10:15:00 Test Item Value Reference Range Interpretation Comments MCV (test code = MCV) 84.7 80.0-98.0 [place] 587612-10-30 10:15:00 Test Item Value Reference Range Interpretation Comments MCH (test code = MCH) 28.4 pg 27.0-31.0 [place] 587612-10-30 10:15:00 Test Item Value Reference Range Interpretation Comments MCHC (test code = MCHC) 33.5 32.0-36.0 [facility] HospitalYxmxgzrYAIYYTMOWJ5000-68-93 10:15:00 Test Item Value Reference Range Interpretation Comments RDW (test code = RDW) 13.5 11.5-14.5 [facility] HospitalUwjtnrzHLBIGQMNVB0438-21-95 10:15:00 Test Item Value Reference Range Interpretation Comments Platelet (test code = Platelet) 459 133-450 [facility] HospitalQdbiopvUEGBGIVKYA9393-68-52 10:15:00 Test Item Value Reference Range Interpretation Comments MPV (test code = MPV) 8.1 7.4-10.4 [place] 587612-10-30 10:15:00 Test Item Value Reference Range Interpretation Comments Segs (test code = Segs) 59.9 45.0-75.0 [facility] HospitalYjkdxauYAVQAUQLYE3149-29-44 10:15:00 Test Item Value Reference Range Interpretation Comments Lymphocytes (test code = Lymphocytes) 31.3 20.0-40.0 [place] 587612-10-30 10:15:00 Test Item Value Reference Range Interpretation Comments Monocytes (test code = Monocytes) 4.9 2.0-12.0 [facility] HospitalRzkmvrnKQXCVZTUGP7991-05-04 10:15:00 Test Item Value Reference Range Interpretation Comments Eosinophils (test code = 3.3 See_Comment [A utomated message] The Eosinophils) system which ge nerated this result tra nsmitted reference range : <=4.0. The reference r kyle was not used to int erpret this result as normal/abnormal . [facility] HospitalLgdidhyJWLBFYWHMM1382-21-57 10:15:00 Test Item Value Reference Range Interpretation Comments Basophils (test code = 0.6 See_Comment [Aut omated message] The Basophils) system which ge nerated this result tra nsmitted reference range : <=1.0. The reference r kyle was not used to int erpret this result as normal/abnormal . [place] 587612-10-30 10:15:00 Test Item Value Reference Range Interpretation Comments Neutrophils # (test code = Neutrophils 6.5 1.5-8.1 #) [facility] HospitalErqbkzsLTCPBEIWWR8982-08-15 10:15:00 Test Item Value Reference Range Interpretation Comments Lymphocytes # (test code = Lymphocytes 3.4 1.0-5.5 #) [facility] HospitalWgeafkbGRCSYWULAD3105-75-27 10:15:00 Test Item Value Reference Range Interpretation Comments Monocytes # (test code 0.5 See_Comment [Aut omated message] The = Monocytes #) system which generated this result tra nsmitted reference range : <=0.8. The reference r kyle was not used to int erpret this result as normal/abnormal . [facility] HospitalDszumwkBSNGXDEVUH8121-66-78 10:15:00 Test Item Value Reference Range Interpretation Comments Eosinophils # (test code 0.4 See_Comment [A utomated message] The = Eosinophils #) system whic h generated this result tra nsmitted reference range : <=0.5. The reference r kyle was not used to int erpret this result as normal/abnormal . [facility] HospitalIuxsxwvOSWZLBIKDM6715-79-77 10:15:00 Test Item Value Reference Range Interpretation Comments Basophils # (test code 0.1 See_Comment [Aut omated message] The = Basophils #) system which generated this result tra nsmitted reference range : <=0.2. The reference r kyle was not used to int erpret this result as normal/abnormal . [facility] HospitalAzzsmgbXWWRKLIKO1266-79-41 10:15:00 Test Item Value Reference Range Interpretation Comments Glucose Lvl (test code = Glucose Lvl) 141 70-99 [facility] HospitalCtxepcwDICXHNSVK1610-96-40 10:15:00 Test Item Value Reference Range Interpretation Comments BUN (test code = BUN) 12 7-22 [facility] HospitalOwewpdnHJDOPXTOC7931-87-16 10:15:00 Test Item Value Reference Range Interpretation Comments Creatinine Lvl (test code = Creatinine 0.42 0.50-1.40 Lvl) [facility] HospitalMyaejtfOEXLZRAVW1201-07-93 10:15:00 Test Item Value Reference Range Interpretation Comments Sodium Lvl (test code = Sodium Lvl) 135 135-145 [facility] HospitalUxgzztmQRAMFQWPF3888-07-78 10:15:00 Test Item Value Reference Range Interpretation Comments Potassium Lvl (test code = Potassium 4.2 3.5-5.1 Lvl) [facility] HospitalBkedskuKXZWXUUNO2876-18-81 10:15:00 Test Item Value Reference Range Interpretation Comments Chloride Lvl (test code = Chloride Lvl) 101 95-109 [facility] HospitalKqfxrrxYMIMUOYMB3436-64-43 10:15:00 Test Item Value Reference Range Interpretation Comments CO2 (test code = CO2) 30 24-32 [facility] HospitalZqbweahIKLRMURJQ5788-65-25 10:15:00 Test Item Value Reference Range Interpretation Comments AGAP (test code = AGAP) 8.2 10.0-20.0 [facility] HospitalJqdqxhvIEOPZVQMK6534-00-76 10:15:00 Test Item Value Reference Range Interpretation Comments Calcium Lvl (test code = Calcium Lvl) 8.9 8.5-10.5 [facility] HospitalEhnbovbHLICDQUDF0099-52-73 10:15:00 Test Item Value Reference Range Interpretation Comments eGFR (test code = eGFR) 116 [facility] HospitalPfsjrxxRHKEFDCBA5221-58-99 10:15:00 Test Item Value Reference Range Interpretation Comments Magnesium Lvl (test code = Magnesium 1.9 1.8-2.4 Lvl) [facility] HospitalVbmcsavXDULPVSQM4222-10-24 10:15:00 Test Item Value Reference Range Interpretation Comments Phosphorus (test code = Phosphorus) 4.2 2.5-4.5 [facility] HospitalOynftvgRNNFAKTPJ8250-25-44 10:15:00 Test Item Value Reference Range Interpretation Comments Ca Ion WB (test code = Ca Ion WB) 1.23 1.05-1.25 [facility] HospitalJxmcnqmMXEVFCENA1990-40-51 10:15:00 Test Item Value Reference Range Interpretation Comments Ca Ion at pH 7.4 WB (test code = Ca Ion 1.19 1.05-1.25 at pH 7.4 WB) [facility] HospitalAmqtveoJJAGIPAXND1397-31-80 10:15:00 Test Item Value Reference Range Interpretation Comments WBC (test code = WBC) 10.9 3.7-10.4 [facility] HospitalIlnjqqqWUAVVMBDXV0768-24-42 10:15:00 Test Item Value Reference Range Interpretation Comments RBC (test code = RBC) 2.89 4.20-5.40 [facility] HospitalOcodzwzDHAZGOJXQR5081-60-31 10:15:00 Test Item Value Reference Range Interpretation Comments Hgb (test code = Hgb) 8.2 12.0-16.0 [facility] HospitalHabvuimFAAMNFZLIC4772-99-85 10:15:00 Test Item Value Reference Range Interpretation Comments Hct (test code = Hct) 24.5 36.0-48.0 [facility] HospitalIlflhviNGKOEAGNYD6450-12-65 10:15:00 Test Item Value Reference Range Interpretation Comments MCV (test code = MCV) 84.7 80.0-98.0 [place] 587612-10-30 10:15:00 Test Item Value Reference Range Interpretation Comments MCH (test code = MCH) 28.4 pg 27.0-31.0 [facility] HospitalDjheqwqSQJWYGWXXZ8732-27-94 10:15:00 Test Item Value Reference Range Interpretation Comments MCHC (test code = MCHC) 33.5 32.0-36.0 [facility] HospitalYihdvhiBADWEULYPU1575-55-42 10:15:00 Test Item Value Reference Range Interpretation Comments RDW (test code = RDW) 13.5 11.5-14.5 [facility] HospitalZycvhqbASZDLOEJWJ8637-43-71 10:15:00 Test Item Value Reference Range Interpretation Comments Platelet (test code = Platelet) 459 133450 [facility] HospitalIcjvmjcZLGJZZZZZQ3089-77-28 10:15:00 Test Item Value Reference Range Interpretation Comments MPV (test code = MPV) 8.1 7.4-10.4 [facility] HospitalSnhggfiWUHAVSNIFE6510-78-03 10:15:00 Test Item Value Reference Range Interpretation Comments Segs (test code = Segs) 59.9 45.0-75.0 [facility] HospitalHlnkipfJGGHCOINBM8755-04-23 10:15:00 Test Item Value Reference Range Interpretation Comments Lymphocytes (test code = Lymphocytes) 31.3 20.0-40.0 [facility] HospitalFbyennkFJKHMMUTOD0776-28-09 10:15:00 Test Item Value Reference Range Interpretation Comments Monocytes (test code = Monocytes) 4.9 2.0-12.0 [place] 587612-10-30 10:15:00 Test Item Value Reference Range Interpretation Comments Eosinophils (test code = 3.3 See_Comment [A utomated message] The Eosinophils) system which ge nerated this result tra nsmitted reference range : <=4.0. The reference r kyle was not used to int erpret this result as normal/abnormal . [facility] HospitalSofhxcmVYBOHNGZHH6965-98-02 10:15:00 Test Item Value Reference Range Interpretation Comments Basophils (test code = 0.6 See_Comment [Aut omated message] The Basophils) system which ge nerated this result tra nsmitted reference range : <=1.0. The reference r kyle was not used to int erpret this result as normal/abnormal . [facility] HospitalKwldgqiTYLVZQBYHW8135-89-37 10:15:00 Test Item Value Reference Range Interpretation Comments Neutrophils # (test code = Neutrophils 6.5 1.5-8.1 #) [facility] HospitalKoezhylJLATQZSFTO4899-35-31 10:15:00 Test Item Value Reference Range Interpretation Comments Lymphocytes # (test code = Lymphocytes 3.4 1.0-5.5 #) [facility] HospitalDbtoqlhRMVTFLNQLC6845-30-67 10:15:00 Test Item Value Reference Range Interpretation Comments Monocytes # (test code 0.5 See_Comment [Aut omated message] The = Monocytes #) system which generated this result tra nsmitted reference range : <=0.8. The reference r kyle was not used to int erpret this result as normal/abnormal . [facility] HospitalIcguwpeQFMFIKVXQM3575-54-73 10:15:00 Test Item Value Reference Range Interpretation Comments Eosinophils # (test code 0.4 See_Comment [A utomated message] The = Eosinophils #) system whic h generated this result tra nsmitted reference range : <=0.5. The reference r kyle was not used to int erpret this result as normal/abnormal . [facility] HospitalDviyxzeBWMQQLMFEB2561-84-44 10:15:00 Test Item Value Reference Range Interpretation Comments Basophils # (test code 0.1 See_Comment [Aut omated message] The = Basophils #) system which generated this result tra nsmitted reference range : <=0.2. The reference r kyle was not used to int erpret this result as normal/abnormal . [facility] HospitalYktituwZLWKMAYRH9119-42-35 10:15:00 Test Item Value Reference Range Interpretation Comments Glucose Lvl (test code = Glucose Lvl) 141 70-99 [facility] HospitalUzqcigxYENPPZVVX2731-49-16 10:15:00 Test Item Value Reference Range Interpretation Comments BUN (test code = BUN) 12 7-22 [facility] HospitalFbdjyqgBBNXJWHRW7363-68-46 10:15:00 Test Item Value Reference Range Interpretation Comments Creatinine Lvl (test code = Creatinine 0.42 0.50-1.40 Lvl) [facility] HospitalJdxcegjOZLEZXZAT8805-09-48 10:15:00 Test Item Value Reference Range Interpretation Comments Sodium Lvl (test code = Sodium Lvl) 135 135-145 [facility] HospitalWzeqgqeTOLBQMXBN8264-33-14 10:15:00 Test Item Value Reference Range Interpretation Comments Potassium Lvl (test code = Potassium 4.2 3.5-5.1 Lvl) [facility] HospitalWqhbwtqEGSHHZYES0319-75-28 10:15:00 Test Item Value Reference Range Interpretation Comments Chloride Lvl (test code = Chloride Lvl) 101 95-109 [facility] HospitalYbcrkdfYGQPPEEQV6722-00-91 10:15:00 Test Item Value Reference Range Interpretation Comments CO2 (test code = CO2) 30 24-32 [facility] HospitalDdmkwvaJITCEQEBW6156-69-62 10:15:00 Test Item Value Reference Range Interpretation Comments AGAP (test code = AGAP) 8.2 10.0-20.0 [facility] HospitalJieeuaeMSIZTLGMI3583-65-07 10:15:00 Test Item Value Reference Range Interpretation Comments Calcium Lvl (test code = Calcium Lvl) 8.9 8.5-10.5 [facility] HospitalCfxmirmITGQMBKOL1105-52-76 10:15:00 Test Item Value Reference Range Interpretation Comments eGFR (test code = eGFR) 116 [facility] HospitalIdtpgckRULOBWMVZ8032-01-62 10:15:00 Test Item Value Reference Range Interpretation Comments Magnesium Lvl (test code = Magnesium 1.9 1.8-2.4 Lvl) [facility] HospitalFizebhvVYZYRDRBG5839-36-80 10:15:00 Test Item Value Reference Range Interpretation Comments Phosphorus (test code = Phosphorus) 4.2 2.5-4.5 [facility] HospitalZguzlnvUGNIPKKVI6562-94-02 10:15:00 Test Item Value Reference Range Interpretation Comments Ca Ion WB (test code = Ca Ion WB) 1.23 1.05-1.25 [facility] HospitalDlhnuzbNCWYRNQMI6666-20-21 10:15:00 Test Item Value Reference Range Interpretation Comments Ca Ion at pH 7.4 WB (test code = Ca Ion 1.19 1.05-1.25 at pH 7.4 WB) [facility] HospitalHhkajmoEJFWNMZKHQ5700-24-24 10:15:00 Test Item Value Reference Range Interpretation Comments WBC (test code = WBC) 10.9 3.7-10.4 [facility] HospitalJedmorzHQDBWFNYGG7453-40-25 10:15:00 Test Item Value Reference Range Interpretation Comments RBC (test code = RBC) 2.89 4.20-5.40 [facility] HospitalQncbhroJYAETGRRRG3609-36-01 10:15:00 Test Item Value Reference Range Interpretation Comments Hgb (test code = Hgb) 8.2 12.0-16.0 [facility] HospitalTkbiifeHOLYQBHVYI0383-69-76 10:15:00 Test Item Value Reference Range Interpretation Comments Hct (test code = Hct) 24.5 36.0-48.0 [facility] HospitalVfhkkwhXSISUHUIZD4501-99-16 10:15:00 Test Item Value Reference Range Interpretation Comments MCV (test code = MCV) 84.7 80.0-98.0 [facility] HospitalNkwkwwaIXDHGUEMAO8666-24-43 10:15:00 Test Item Value Reference Range Interpretation Comments MCH (test code = MCH) 28.4 pg 27.0-31.0 [facility] HospitalYgqgwdjDXSKFDFRAF0527-05-78 10:15:00 Test Item Value Reference Range Interpretation Comments MCHC (test code = MCHC) 33.5 32.0-36.0 [facility] HospitalMmlaptuQTYQCCHJVE6414-02-07 10:15:00 Test Item Value Reference Range Interpretation Comments RDW (test code = RDW) 13.5 11.5-14.5 [facility] HospitalMfwfwltCLFJLALUEC6345-94-15 10:15:00 Test Item Value Reference Range Interpretation Comments Platelet (test code = Platelet) 459 965-450 [facility] HospitalPqppytrJDBBEHIYWM1851-24-41 10:15:00 Test Item Value Reference Range Interpretation Comments MPV (test code = MPV) 8.1 7.4-10.4 [facility] HospitalAdtulrkRKEQNZIWOS9253-09-81 10:15:00 Test Item Value Reference Range Interpretation Comments Segs (test code = Segs) 59.9 45.0-75.0 [place] 587612-10-30 10:15:00 Test Item Value Reference Range Interpretation Comments Lymphocytes (test code = Lymphocytes) 31.3 20.0-40.0 [place] 587612-10-30 10:15:00 Test Item Value Reference Range Interpretation Comments Monocytes (test code = Monocytes) 4.9 2.0-12.0 [place] 587612-10-30 10:15:00 Test Item Value Reference Range Interpretation Comments Eosinophils (test code = 3.3 See_Comment [A utomated message] The Eosinophils) system which ge nerated this result tra nsmitted reference range : <=4.0. The reference r kyle was not used to int erpret this result as normal/abnormal . [facility] HospitalYghdywmIDSKOBNKMV6479-73-74 10:15:00 Test Item Value Reference Range Interpretation Comments Basophils (test code = 0.6 See_Comment [Aut omated message] The Basophils) system which ge nerated this result tra nsmitted reference range : <=1.0. The reference r kyle was not used to int erpret this result as normal/abnormal . [facility] HospitalXdyvlsdDYQFRNFOAO8081-79-34 10:15:00 Test Item Value Reference Range Interpretation Comments Neutrophils # (test code = Neutrophils 6.5 1.5-8.1 #) [place] 587612-10-30 10:15:00 Test Item Value Reference Range Interpretation Comments Lymphocytes # (test code = Lymphocytes 3.4 1.0-5.5 #) [facility] HospitalZvwurnzTEMIDZAFPD5919-61-55 10:15:00 Test Item Value Reference Range Interpretation Comments Monocytes # (test code 0.5 See_Comment [Aut omated message] The = Monocytes #) system which generated this result tra nsmitted reference range : <=0.8. The reference r kyle was not used to int erpret this result as normal/abnormal . [facility] HospitalXxsxusjPPMEWXMDVC5310-04-75 10:15:00 Test Item Value Reference Range Interpretation Comments Eosinophils # (test code 0.4 See_Comment [A utomated message] The = Eosinophils #) system whic h generated this result tra nsmitted reference range : <=0.5. The reference r kyle was not used to int erpret this result as normal/abnormal . [facility] HospitalKgcxwobTFOQMWZABW8788-88-68 10:15:00 Test Item Value Reference Range Interpretation Comments Basophils # (test code 0.1 See_Comment [Aut omated message] The = Basophils #) system which generated this result tra nsmitted reference range : <=0.2. The reference r kyle was not used to int erpret this result as normal/abnormal . [place] 46645022-10-29 16:38:43 Test Item Value Reference Range Interpretation Comments RADRPT (test code = EXAM: MRI CERVICAL SPINE RADRPT) WITHOUT AND WITH CONTRASTDATE: 06/30/2022INDICATION: - infection.COMPARISON: NoneTECHNIQUE: Multiplanar, multisequence, precontrast and postcontrast MR imaging of the cervical spine.IV contrast: Refer to polysomnography technologist documentationFINDINGS: Numbering: There are 7 cervical, [...] enhancement.3. Moderate right neural foraminal stenosis C6-C7 [facility] CenterAioounsWYZKYK4403-94-63 16:38:43 Test Item Value Reference Range Interpretation Comments RADRPT (test code = EXAM: MRI CERVICAL SPINE RADRPT) WITHOUT AND WITH CONTRASTDATE: 06/30/2022INDICATION: - infection.COMPARISON: NoneTECHNIQUE: Multiplanar, multisequence, precontrast and postcontrast MR imaging of the cervical spine.IV contrast: Refer to polysomnography technologist documentationFINDINGS: Numbering: There are 7 cervical, [...] enhancement.3. Moderate right neural foraminal stenosis C6-C7 [facility] WaenjiaJDIWSN6827-13-73 16:38:43 Test Item Value Reference Range Interpretation Comments RADRPT (test code = EXAM: MRI CERVICAL SPINE RADRPT) WITHOUT AND WITH CONTRASTDATE: 06/30/2022INDICATION: - infection.COMPARISON: NoneTECHNIQUE: Multiplanar, multisequence, precontrast and postcontrast MR imaging of the cervical spine.IV contrast: Refer to polysomnography technologist documentationFINDINGS: Numbering: There are 7 cervical, [...] enhancement.3. Moderate right neural foraminal stenosis C6-C7 [facility] CenterFabzelqWKISPW5752-19-57 16:38:43 Test Item Value Reference Range Interpretation Comments RADRPT (test code = EXAM: MRI CERVICAL SPINE RADRPT) WITHOUT AND WITH CONTRASTDATE: 06/30/2022INDICATION: - infection.COMPARISON: NoneTECHNIQUE: Multiplanar, multisequence, precontrast and postcontrast MR imaging of the cervical spine.IV contrast: Refer to polysomnography technologist documentationFINDINGS: Numbering: There are 7 cervical, [...] enhancement.3. Moderate right neural foraminal stenosis C6-C7 [facility] HospitalYzqiqrlQFSHJV4697-77-07 16:38:43 Test Item Value Reference Range Interpretation Comments RADRPT (test code = EXAM: MRI CERVICAL SPINE RADRPT) WITHOUT AND WITH CONTRASTDATE: 06/30/2022INDICATION: - infection.COMPARISON: NoneTECHNIQUE: Multiplanar, multisequence, precontrast and postcontrast MR imaging of the cervical spine.IV contrast: Refer to polysomnography technologist documentationFINDINGS: Numbering: There are 7 cervical, [...] enhancement.3. Moderate right neural foraminal stenosis C6-C7 [facility] HospitalLrpggrvXCHGGZ6154-23-07 16:38:43 Test Item Value Reference Range Interpretation Comments RADRPT (test code = EXAM: MRI CERVICAL SPINE RADRPT) WITHOUT AND WITH CONTRASTDATE: 06/30/2022INDICATION: - infection.COMPARISON: NoneTECHNIQUE: Multiplanar, multisequence, precontrast and postcontrast MR imaging of the cervical spine.IV contrast: Refer to polysomnography technologist documentationFINDINGS: Numbering: There are 7 cervical, [...] enhancement.3. Moderate right neural foraminal stenosis C6-C7 [facility] HospitalGdhkewcADBTJP7213-78-78 16:38:43 Test Item Value Reference Range Interpretation Comments RADRPT (test code = EXAM: MRI CERVICAL SPINE RADRPT) WITHOUT AND WITH CONTRASTDATE: 06/30/2022INDICATION: - infection.COMPARISON: NoneTECHNIQUE: Multiplanar, multisequence, precontrast and postcontrast MR imaging of the cervical spine.IV contrast: Refer to polysomnography technologist documentationFINDINGS: Numbering: There are 7 cervical, [...] enhancement.3. Moderate right neural foraminal stenosis C6-C7 [facility] CenterBmixrvdBJFYPZ3732-76-30 07:33:51 Test Item Value Reference Range Interpretation [...] examination* Multilevel diffuse degenerative changes are present. [facility] CenterPvcorfvAAEMTY2184-97-35 07:33:51 Test Item Value Reference Range Interpretation [...] examination* Multilevel diffuse degenerative changes are present. [facility] CenterHihgyjaAEPTMU8210-46-83 07:33:51 Test Item Value Reference Range Interpretation [...] examination* Multilevel diffuse degenerative changes are present. [facility] HospitalEuablmpRAOJNF5984-80-25 07:33:51 Test Item Value Reference Range Interpretation [...] examination* Multilevel diffuse degenerative changes are present. [facility] HospitalAlrxxccYHJUYR0743-77-02 07:33:51 Test Item Value Reference Range Interpretation [...] examination* Multilevel diffuse degenerative changes are present. [facility] HospitalHwmhwptJZVHHU1292-18-34 07:33:51 Test Item Value Reference Range Interpretation [...] examination* Multilevel diffuse degenerative changes are present. [facility] HospitalGoyewzdWMEWEW3317-55-45 07:33:51 Test Item Value Reference Range Interpretation [...] examination* Multilevel diffuse degenerative changes are present. [facility] HospitalHfquraxJRNOVN0639-49-60 19:34:11 Test Item Value Reference Range Interpretation [...] this portable radiograph. Osseous structures are unchanged. [facility] HospitalHtjjjksVMJBXF7802-99-67 19:34:11 Test Item Value Reference Range Interpretation [...] this portable radiograph. Osseous structures are unchanged. [facility] HospitalCdtusrpVVCFML2698-13-89 19:34:11 Test Item Value Reference Range Interpretation [...] this portable radiograph. Osseous structures are unchanged. [facility] HospitalCdhwarvFZJNJX0953-99-07 19:34:11 Test Item Value Reference Range Interpretation [...] this portable radiograph. Osseous structures are unchanged. [facility] HospitalRgdtcirWFNAIX5896-73-21 19:34:11 Test Item Value Reference Range Interpretation [...] this portable radiograph. Osseous structures are unchanged. [place] 46645022-10-27 19:34:11 Test Item Value Reference Range Interpretation [...] this portable radiograph. Osseous structures are unchanged. [place] 46645022-10-27 19:34:11 Test Item Value Reference Range Interpretation [...] this portable radiograph. Osseous structures are unchanged. [facility] CenterUsmhvpaXODSQRSBRG4724-04-44 05:23:00 Test Item Value Reference Range Interpretation Comments C-REACTIVE PROTEIN (test code = 22.5 C-REACTIVE PROTEIN) [facility] CenterQdfcpdnQVGZCUVJOU6949-91-72 05:23:00 Test Item Value Reference Range Interpretation Comments C-REACTIVE PROTEIN (test code = 22.5 C-REACTIVE PROTEIN) [facility] CenterGhxvoatMJSKUFXBUV1280-35-82 05:23:00 Test Item Value Reference Range Interpretation Comments C-REACTIVE PROTEIN (test code = 22.5 C-REACTIVE PROTEIN) [facility] CenterJoxotzoLJLXCPHNDX5092-97-72 05:23:00 Test Item Value Reference Range Interpretation Comments C-REACTIVE PROTEIN (test code = 22.5 C-REACTIVE PROTEIN) [facility] CenterXdhcwdxDYWIPDBFUB5389-66-24 05:23:00 Test Item Value Reference Range Interpretation Comments C-REACTIVE PROTEIN (test code = 22.5 C-REACTIVE PROTEIN) [address]10-27 05:23:00 Test Item Value Reference Range Interpretation Comments C-REACTIVE PROTEIN (test code = 22.5 C-REACTIVE PROTEIN) [address]10-27 05:23:00 Test Item Value Reference Range Interpretation Comments C-REACTIVE PROTEIN (test code = 22.5 C-REACTIVE PROTEIN) [address]10-26 23:15:00 Test Item Value Reference Range Interpretation Comments Sed Rate (test code = 90 See_Comment [Auto mated message] The Sed Rate) system which ge nerated this result transmit delaney reference range : <=20. The reference range was not used to interpr et this result as kiarra l/abnormal. [address]10-26 23:15:00 Test Item Value Reference Range Interpretation Comments Sed Rate (test code = 90 See_Comment [Auto mated message] The Sed Rate) system which ge nerated this result transmit delaney reference range : <=20. The reference range was not used to interpr et this result as kiarra l/abnormal. [address]10-26 23:15:00 Test Item Value Reference Range Interpretation Comments Sed Rate (test code = 90 See_Comment [Auto mated message] The Sed Rate) system which ge nerated this result transmit delaney reference range : <=20. The reference range was not used to interpr et this result as kiarra l/abnormal. [address]10-26 23:15:00 Test Item Value Reference Range Interpretation Comments Sed Rate (test code = 90 See_Comment [Auto mated message] The Sed Rate) system which ge nerated this result transmit delaney reference range : <=20. The reference range was not used to interpr et this result as kiarra l/abnormal. [address]10-26 23:15:00 Test Item Value Reference Range Interpretation Comments Sed Rate (test code = 90 See_Comment [Auto mated message] The Sed Rate) system which ge nerated this result transmit delaney reference range : <=20. The reference range was not used to interpr et this result as kiarra l/abnormal. [place] [address]-26 23:15:00 Test Item Value Reference Range Interpretation Comments Sed Rate (test code = 90 See_Comment [Auto mated message] The Sed Rate) system which ge nerated this result transmit delaney reference range : <=20. The reference range was not used to interpr et this result as kiarra l/abnormal. [facility] CenterJztfhtfSYJYVFZJLN3964-28-59 23:15:00 Test Item Value Reference Range Interpretation Comments Sed Rate (test code = 90 See_Comment [Auto mated message] The Sed Rate) system which ge nerated this result transmit delaney reference range : <=20. The reference range was not used to interpr et this result as kiarra l/abnormal. [facility] CenterZwaxnaaLMGEHH8374-08-13 14:43:31 Test Item Value Reference Range Interpretation [...] at 06/28/2022 10:15 by Gerald Pop MD [facility] HospitalChtafouQGXONU4206-70-47 14:43:31 Test Item Value Reference Range Interpretation [...] at 06/28/2022 10:15 by Gerald Pop MD [facility] HospitalDnldyfnPRTJNN7770-61-27 14:43:31 Test Item Value Reference Range Interpretation [...] at 06/28/2022 10:15 by Gerald Pop MD [facility] HospitalMdhclgoSCKTHP7238-05-29 14:43:31 Test Item Value Reference Range Interpretation [...] at 06/28/2022 10:15 by Gerald Pop MD [facility] HospitalRutvybsLJGQZM9244-77-29 14:43:31 Test Item Value Reference Range Interpretation [...] at 06/28/2022 10:15 by Gerald Pop MD [facility] HospitalLwsgtxsWWJHQG0591-84-99 14:43:31 Test Item Value Reference Range Interpretation [...] at 06/28/2022 10:15 by Gerald Pop MD [facility] HospitalGbtvdxkQKAHST0301-95-54 14:43:31 Test Item Value Reference Range Interpretation [...] at 06/28/2022 10:15 by Gerald Pop MD [facility] HospitalTmqgqzoKAIYUQ9870-50-23 14:43:31 Test Item Value Reference Range Interpretation [...] at 06/28/2022 10:15 by Gerald Pop MD [facility] HospitalGmvjechDBLCYY9657-82-77 14:43:31 Test Item Value Reference Range Interpretation [...] at 06/28/2022 10:15 by Gerald Pop MD [facility] HospitalZdiwaaxJVSKBV7644-54-89 14:43:31 Test Item Value Reference Range Interpretation [...] at 06/28/2022 10:15 by Gerald Pop MD [facility] HospitalMxarnwlBRUAIH6241-69-20 14:43:31 Test Item Value Reference Range Interpretation [...] at 06/28/2022 10:15 by Gerald Pop MD [facility] CenterTqznohmMIRYOM1337-11-95 14:43:31 Test Item Value Reference Range Interpretation [...] at 06/28/2022 10:15 by Gerald Pop MD [facility] HospitalCibmuefIKAFUO8851-57-11 14:43:31 Test Item Value Reference Range Interpretation [...] at 06/28/2022 10:15 by [facility] CenterAgcestzPNCPBS2160-82-20 14:43:31 Test Item Value Reference Range Interpretation [...] at 06/28/2022 10:15 by Gerald Pop MD [place] 013132-10-25 11:00:00 Test Item Value Reference Range Interpretation Comments Gluc POC Comment 2 (test code = Sent to lab Gluc POC Comment 2) [place] [address]-10-25 11:00:00 Test Item Value Reference Range Interpretation Comments Gluc POC Comment 2 (test code = Sent to lab Gluc POC Comment 2) [facility]2022-10-25 11:00:00 Test Item Value Reference Range Interpretation Comments Gluc POC Comment 2 (test code = Sent to lab Gluc POC Comment 2) [place] 013132-10-25 11:00:00 Test Item Value Reference Range Interpretation Comments Gluc POC Comment 2 (test code = Sent to lab Gluc POC Comment 2) [place] 013132-10-25 11:00:00 Test Item Value Reference Range Interpretation Comments Gluc POC Comment 2 (test code = Sent to lab Gluc POC Comment 2) [place] 013132-10-25 11:00:00 Test Item Value Reference Range Interpretation Comments Gluc POC Comment 2 (test code = Sent to lab Gluc POC Comment 2) [place] 013132-10-25 11:00:00 Test Item Value Reference Range Interpretation Comments Gluc POC Comment 2 (test code = Sent to lab Gluc POC Comment 2) [place] [id number] 18:45:51 Test Item Value Reference Range Interpretation [...] 1. No abdominal abnormalities.2. Hardware as above. [facility] HospitalAepmdacGRKBGW1317-78-86 18:45:51 Test Item Value Reference Range Interpretation [...] 1. No abdominal abnormalities.2. Hardware as above. [facility] HospitalRazsvjmTIQQXB9248-94-04 18:45:51 Test Item Value Reference Range Interpretation [...] 1. No abdominal abnormalities.2. Hardware as above. [facility] HospitalMknnegaLNJYOU3154-93-64 18:45:51 Test Item Value Reference Range Interpretation [...] 1. No abdominal abnormalities.2. Hardware as above. [facility] HospitalZbixtdzXQFXKJ9058-92-53 18:45:51 Test Item Value Reference Range Interpretation [...] 1. No abdominal abnormalities.2. Hardware as above. [facility] HospitalNzicfxnVDBJDO7186-86-04 18:45:51 Test Item Value Reference Range Interpretation [...] 1. No abdominal abnormalities.2. Hardware as above. [facility] HospitalObreidvNGFAGX0218-75-40 18:45:51 Test Item Value Reference Range Interpretation [...] 1. No abdominal abnormalities.2. Hardware as above. [facility]HzmqlwvXXUYQISJC4398-32-94 16:44:00 Test Item Value Reference Range Interpretation Comments POC V Source (test code = POC V Source) BRUNA [facility] HospitalTsghyepUWUULHGVL4410-93-65 16:44:00 Test Item Value Reference Range Interpretation Comments POC V Temp (test code = POC V Temp) 37.0 [facility] HospitalLppvekvUHIAFZAEA3799-19-39 16:44:00 Test Item Value Reference Range Interpretation Comments POC V Ion Ca (test code = POC V Ion Ca) 1.20 1.05-1.25 [facility] HospitalMsasxqkSDIRPQLFA2932-94-50 16:44:00 Test Item Value Reference Range Interpretation Comments POC V K (test code = POC V K) 4.0 3.5-5.1 [facility] HospitalDvarjftCPPOHKRHY6698-49-88 16:44:00 Test Item Value Reference Range Interpretation Comments POC V Na (test code = POC V Na) 130 135-145 [place] 286112-10-24 16:44:00 Test Item Value Reference Range Interpretation Comments POC V LA (test code = POC V LA) 1.1 0.5-2.2 [facility] HospitalQgklxreCZVCGJTUW8812-87-72 16:44:00 Test Item Value Reference Range Interpretation Comments POC V pH (test code = POC V pH) 7.41 1 7.28-7.42 [facility] HospitalYavvmsuSFGLOSNXU3479-83-27 16:44:00 Test Item Value Reference Range Interpretation Comments POC V PCO2 (test code = POC V PCO2) 40 38-52 [facility] HospitalUedsqabUPUFXLVXH1270-69-42 16:44:00 Test Item Value Reference Range Interpretation Comments POC V PO2 (test code = POC V PO2) 41 20-49 [facility] HospitalXtxkzgpKZHLPTILB6587-54-94 16:44:00 Test Item Value Reference Range Interpretation Comments POC V HCO3 (test code = POC V HCO3) 25 22-26 [facility] HospitalUphkaitRDREBPPVA7209-15-62 16:44:00 Test Item Value Reference Range Interpretation Comments POC V BE (test code = POC V BE) 1 -2-2 [facility] HospitalHmcddgvOZWVHPEUR5360-38-73 16:44:00 Test Item Value Reference Range Interpretation Comments POC V O2 Sat (calc) (test code = POC V 76.8 40.0-70.0 O2 Sat (calc)) [facility] HospitalUqxhjgoUKYAHWPQC5603-76-48 16:44:00 Test Item Value Reference Range Interpretation Comments POC V Hgb Tot (test code = POC V Hgb 9.6 12.0-16.0 Tot) [facility] HospitalWktlyyfVDLIUVSLO4990-62-52 16:44:00 Test Item Value Reference Range Interpretation Comments POC V Glu (test code = POC V Glu) 185 70-99 [facility] HospitalVauxkjkAOBIHQMDY8687-15-63 16:44:00 Test Item Value Reference Range Interpretation Comments POC V Hct (calc) (test code = POC V Hct 29.0 36.0-48.0 (calc)) [facility] HospitalOgkxweeRMDJMBQPP3225-77-14 16:44:00 Test Item Value Reference Range Interpretation Comments POC V Cl (test code = POC V Cl) 100 95-109 [facility] HospitalWvzgmvjDAQIPHACU6236-84-35 16:44:00 Test Item Value Reference Range Interpretation Comments POC V Ca Ion at pH 7.4 (test code = POC 1.20 1.05-1.25 V Ca Ion at pH 7.4) [facility] HospitalBsatyfyLBNBGOSKC3338-09-01 16:44:00 Test Item Value Reference Range Interpretation Comments POC V Source (test code = POC V Source) BRUNA [facility] HospitalBjetydgAWLEWDLTW2179-65-41 16:44:00 Test Item Value Reference Range Interpretation Comments POC V Temp (test code = POC V Temp) 37.0 [facility] HospitalLbvdbmiNVZKLPXZW6485-21-12 16:44:00 Test Item Value Reference Range Interpretation Comments POC V Ion Ca (test code = POC V Ion Ca) 1.20 1.05-1.25 [facility] HospitalEljvjclXDFFWLGOR5841-44-10 16:44:00 Test Item Value Reference Range Interpretation Comments POC V K (test code = POC V K) 4.0 3.5-5.1 [facility] HospitalHmjllofPWXQBGZXK3160-02-23 16:44:00 Test Item Value Reference Range Interpretation Comments POC V Source (test code = POC V Source) [facility]2022-10-24 16:44:00 Test Item Value Reference Range Interpretation Comments POC V Temp (test code = POC V Temp) 37.0 [facility] HospitalDegmxxjPWVEQODLG6081-04-76 16:44:00 Test Item Value Reference Range Interpretation Comments POC V Ion Ca (test code = POC V Ion Ca) 1.20 1.05-1.25 [facility] HospitalGcibobqIOBPQMZFM6729-17-31 16:44:00 Test Item Value Reference Range Interpretation Comments POC V K (test code = POC V K) 4.0 3.5-5.1 [facility] HospitalKydtpfmJJXMQMARQ5353-32-54 16:44:00 Test Item Value Reference Range Interpretation Comments POC V Na (test code = POC V Na) 130 135-145 [facility] HospitalSflsxvsXBXNYIMZW2070-21-85 16:44:00 Test Item Value Reference Range Interpretation Comments POC V LA (test code = POC V LA) 1.1 0.5-2.2 [facility] HospitalSurnjiwHFHVXIJQG8547-58-78 16:44:00 Test Item Value Reference Range Interpretation Comments POC V pH (test code = POC V pH) 7.41 1 7.28-7.42 [facility] HospitalZbxffvlDCKGTLEOY8250-06-37 16:44:00 Test Item Value Reference Range Interpretation Comments POC V Na (test code = POC V Na) 130 135-145 [facility] HospitalRwbkhhrTCTYALOLK9254-13-63 16:44:00 Test Item Value Reference Range Interpretation Comments POC V PCO2 (test code = POC V PCO2) 40 38-52 [place] [address]-10-24 16:44:00 Test Item Value Reference Range Interpretation Comments POC V PO2 (test code = POC V PO2) 41 20-49 [facility] HospitalYoigohwEDDCAIBOC9500-74-16 16:44:00 Test Item Value Reference Range Interpretation Comments POC V HCO3 (test code = POC V HCO3) 25 22-26 [facility] HospitalAobntunIWXQKXQMV1990-82-97 16:44:00 Test Item Value Reference Range Interpretation Comments POC V BE (test code = POC V BE) 1 -2-2 [facility] HospitalHteafiwIQTQYOSTM7037-40-20 16:44:00 Test Item Value Reference Range Interpretation Comments POC V O2 Sat (calc) (test code = POC V 76.8 40.0-70.0 O2 Sat (calc)) [facility] HospitalSdzddakVRUSEKDXO7772-00-05 16:44:00 Test Item Value Reference Range Interpretation Comments POC V Hgb Tot (test code = POC V Hgb 9.6 12.0-16.0 Tot) [facility] HospitalRzlosfeATBLQSCDU6666-52-26 16:44:00 Test Item Value Reference Range Interpretation Comments POC V Glu (test code = POC V Glu) 185 70-99 [facility] HospitalDxpebyqYKDTXSQKD5538-48-64 16:44:00 Test Item Value Reference Range Interpretation Comments POC V Hct (calc) (test code = POC V Hct 29.0 36.0-48.0 (calc)) [facility] HospitalAvbsivlVFVIZYIWJ6857-15-04 16:44:00 Test Item Value Reference Range Interpretation Comments POC V Cl (test code = POC V Cl) 100 95-109 [facility] HospitalNhdwqxxGLRGKYBWT1578-39-86 16:44:00 Test Item Value Reference Range Interpretation Comments POC V Ca Ion at pH 7.4 (test code = POC 1.20 1.05-1.25 V Ca Ion at pH 7.4) [facility] HospitalAmqmsrxNBFZRVUEX5659-40-39 16:44:00 Test Item Value Reference Range Interpretation Comments POC V LA (test code = POC V LA) 1.1 0.5-2.2 [facility] HospitalGfwttdrWSLQPXIBJ7420-60-43 16:44:00 Test Item Value Reference Range Interpretation Comments POC V pH (test code = POC V pH) 7.41 1 7.28-7.42 [facility] HospitalOytbhqkWYSEZPSFS5809-84-50 16:44:00 Test Item Value Reference Range Interpretation Comments POC V PCO2 (test code = POC V PCO2) 40 38-52 [facility] HospitalLbhbxkrMGIMMJMBP1804-77-26 16:44:00 Test Item Value Reference Range Interpretation Comments POC V PO2 (test code = POC V PO2) 41 20-49 [facility] HospitalHjgnxroVRCWPUUSR1086-70-17 16:44:00 Test Item Value Reference Range Interpretation Comments POC V HCO3 (test code = POC V HCO3) 25 22-26 [facility] HospitalGlwuqwkNGMINRPDV2040-53-26 16:44:00 Test Item Value Reference Range Interpretation Comments POC V BE (test code = POC V BE) 1 -2-2 [facility] HospitalHjxoclwIRESTJHFL7570-35-16 16:44:00 Test Item Value Reference Range Interpretation Comments POC V O2 Sat (calc) (test code = POC V 76.8 40.0-70.0 O2 Sat (calc)) [facility] HospitalBmzllbsKFRAZOSBX4417-30-80 16:44:00 Test Item Value Reference Range Interpretation Comments POC V Hgb Tot (test code = POC V Hgb 9.6 12.0-16.0 Tot) [facility] HospitalWwzxqevFXEPJEPLZ8060-82-85 16:44:00 Test Item Value Reference Range Interpretation Comments POC V Glu (test code = POC V Glu) 185 70-99 [facility] HospitalGezwnuzTHQTBRBTP1019-15-41 16:44:00 Test Item Value Reference Range Interpretation Comments POC V Hct (calc) (test code = POC V Hct 29.0 36.0-48.0 (calc)) [facility] HospitalZwvxosnGZXBUJWQZ0033-37-05 16:44:00 Test Item Value Reference Range Interpretation Comments POC V Cl (test code = POC V Cl) 100 95-109 [facility] HospitalVbeykrcACWOMXOYW8387-56-14 16:44:00 Test Item Value Reference Range Interpretation Comments POC V Ca Ion at pH 7.4 (test code = POC 1.20 1.05-1.25 V Ca Ion at pH 7.4) [facility] HospitalHopcmbqEZDPBAWHR2999-00-13 16:44:00 Test Item Value Reference Range Interpretation Comments POC V Source (test code = POC V Source) BRUNA [facility] HospitalYmyejaeRGIGJRFWL0891-24-04 16:44:00 Test Item Value Reference Range Interpretation Comments POC V Temp (test code = POC V Temp) 37.0 [facility] HospitalMoadnzcHTCJKIVZE0535-04-60 16:44:00 Test Item Value Reference Range Interpretation Comments POC V Ion Ca (test code = POC V Ion Ca) 1.20 1.05-1.25 [facility] HospitalMcrcsfxCGQUGFLGP3641-32-30 16:44:00 Test Item Value Reference Range Interpretation Comments POC V K (test code = POC V K) 4.0 3.5-5.1 [facility] HospitalKujcvggJUUIFPRYM0950-67-46 16:44:00 Test Item Value Reference Range Interpretation Comments POC V Na (test code = POC V Na) 130 135-145 [facility] HospitalEqlfgyeRSCYVKABY3831-67-63 16:44:00 Test Item Value Reference Range Interpretation Comments POC V LA (test code = POC V LA) 1.1 0.5-2.2 [facility] HospitalKaugndcDUPEYPSQW8235-59-93 16:44:00 Test Item Value Reference Range Interpretation Comments POC V pH (test code = POC V pH) 7.41 1 7.28-7.42 [facility] HospitalNionjbdURRQLQTIB8637-95-65 16:44:00 Test Item Value Reference Range Interpretation Comments POC V PCO2 (test code = POC V PCO2) 40 38-52 [facility] HospitalIhmsezqYTDONOJHE0257-31-09 16:44:00 Test Item Value Reference Range Interpretation Comments POC V PO2 (test code = POC V PO2) 41 20-49 [facility] HospitalYznyhzcVRSLGLNMU1643-14-57 16:44:00 Test Item Value Reference Range Interpretation Comments POC V HCO3 (test code = POC V HCO3) 25 22-26 [facility] HospitalHjpjouzUBJAZNHEJ8610-14-11 16:44:00 Test Item Value Reference Range Interpretation Comments POC V BE (test code = POC V BE) 1 -2-2 [facility] HospitalLnwvmtmGIEXHDCFW1882-40-45 16:44:00 Test Item Value Reference Range Interpretation Comments POC V O2 Sat (calc) (test code = POC V 76.8 40.0-70.0 O2 Sat (calc)) [facility] HospitalAmdnswzADHHDLNZG9435-89-61 16:44:00 Test Item Value Reference Range Interpretation Comments POC V Hgb Tot (test code = POC V Hgb 9.6 12.0-16.0 Tot) [facility] HospitalGusajlyUOSSRSRXP4045-41-36 16:44:00 Test Item Value Reference Range Interpretation Comments POC V Glu (test code = POC V Glu) 185 70-99 [place] 286112-10-24 16:44:00 Test Item Value Reference Range Interpretation Comments POC V Hct (calc) (test code = POC V Hct 29.0 36.0-48.0 (calc)) [facility] HospitalJherytaYEOAYMBKI3742-43-32 16:44:00 Test Item Value Reference Range Interpretation Comments POC V Cl (test code = POC V Cl) 100 95-109 [facility] HospitalVdvvhdySBFFSBQCG7635-71-64 16:44:00 Test Item Value Reference Range Interpretation Comments POC V Ca Ion at pH 7.4 (test code = POC 1.20 1.05-1.25 V Ca Ion at pH 7.4) [facility] HospitalCqossqsBXRWFANLE3768-39-72 16:44:00 Test Item Value Reference Range Interpretation Comments POC V Source (test code = POC V Source) BRUNA [facility] HospitalAivmbptRNBZUUDPK5946-87-11 16:44:00 Test Item Value Reference Range Interpretation Comments POC V Temp (test code = POC V Temp) 37.0 [facility] HospitalRzlbvcrYKISGRRXK6832-46-43 16:44:00 Test Item Value Reference Range Interpretation Comments POC V Ion Ca (test code = POC V Ion Ca) 1.20 1.05-1.25 [facility] HospitalItsuioaGQQWZNDRG1571-64-16 16:44:00 Test Item Value Reference Range Interpretation Comments POC V K (test code = POC V K) 4.0 3.5-5.1 [place] 286112-10-24 16:44:00 Test Item Value Reference Range Interpretation Comments POC V Na (test code = POC V Na) 130 135-145 [facility] HospitalElprhhsIBZVIDLJD6791-54-90 16:44:00 Test Item Value Reference Range Interpretation Comments POC V LA (test code = POC V LA) 1.1 0.5-2.2 [facility] HospitalGunrvfyKDKVDCLNO2265-86-35 16:44:00 Test Item Value Reference Range Interpretation Comments POC V pH (test code = POC V pH) 7.41 1 7.28-7.42 [facility] HospitalTqzxmniWMURJEVOI3464-53-88 16:44:00 Test Item Value Reference Range Interpretation Comments POC V PCO2 (test code = POC V PCO2) 40 38-52 [facility]RgpvxoqBTUUVHRYV8461-73-32 16:44:00 Test Item Value Reference Range Interpretation Comments POC V PO2 (test code = POC V PO2) 41 20-49 [facility] HospitalBabxsinQZOJTTWTB6377-47-53 16:44:00 Test Item Value Reference Range Interpretation Comments POC V HCO3 (test code = POC V HCO3) 25 22-26 [facility] HospitalMnuqvfjTAUDGXATS5359-64-84 16:44:00 Test Item Value Reference Range Interpretation Comments POC V BE (test code = POC V BE) 1 -2-2 [facility] HospitalYvaggryWPXJCZUGJ5638-75-55 16:44:00 Test Item Value Reference Range Interpretation Comments POC V O2 Sat (calc) (test code = POC V 76.8 40.0-70.0 O2 Sat (calc)) [facility] HospitalYleqmkvLOMYAEVZD8193-76-29 16:44:00 Test Item Value Reference Range Interpretation Comments POC V Hgb Tot (test code = POC V Hgb 9.6 12.0-16.0 Tot) [facility] HospitalPzclbiwMUULKBZYQ4270-00-72 16:44:00 Test Item Value Reference Range Interpretation Comments POC V Glu (test code = POC V Glu) 185 70-99 [facility] HospitalImulyskCZSBORGOO0735-52-97 16:44:00 Test Item Value Reference Range Interpretation Comments POC V Hct (calc) (test code = POC V Hct 29.0 36.0-48.0 (calc)) [facility] HospitalRjqylbtLORNNWYWK2053-05-01 16:44:00 Test Item Value Reference Range Interpretation Comments POC V Cl (test code = POC V Cl) 100 95-109 [facility] HospitalMrrqnovVQLUMKLZH4723-52-14 16:44:00 Test Item Value Reference Range Interpretation Comments POC V Ca Ion at pH 7.4 (test code = POC 1.20 1.05-1.25 V Ca Ion at pH 7.4) [facility] HospitalPqfogrsEPSPUWPJW5861-50-64 16:44:00 Test Item Value Reference Range Interpretation Comments POC V Source (test code = POC V Source) BRUNA [facility] HospitalFadxgjzKFINKSQWL0850-57-07 16:44:00 Test Item Value Reference Range Interpretation Comments POC V Temp (test code = POC V Temp) 37.0 [facility] HospitalSwyzpuqCEKSXUQRG8893-49-30 16:44:00 Test Item Value Reference Range Interpretation Comments POC V Ion Ca (test code = POC V Ion Ca) 1.20 1.05-1.25 [facility] HospitalNlusmbsDBIFVCIGT4379-39-49 16:44:00 Test Item Value Reference Range Interpretation Comments POC V K (test code = POC V K) 4.0 3.5-5.1 [facility] HospitalHtpaapgERSSVXXVI6248-40-46 16:44:00 Test Item Value Reference Range Interpretation Comments POC V Na (test code = POC V Na) 130 135-145 [facility] HospitalYlmslnuBJEVYXODO6031-89-66 16:44:00 Test Item Value Reference Range Interpretation Comments POC V LA (test code = POC V LA) 1.1 0.5-2.2 [facility] HospitalJsbyehkLAJYBYIAD6493-63-32 16:44:00 Test Item Value Reference Range Interpretation Comments POC V pH (test code = POC V pH) 7.41 1 7.28-7.42 [facility] HospitalMdtvbntHIMGFMURP4520-38-75 16:44:00 Test Item Value Reference Range Interpretation Comments POC V PCO2 (test code = POC V PCO2) 40 38-52 [facility] HospitalGlmhcczMDNWLLMAT6299-85-66 16:44:00 Test Item Value Reference Range Interpretation Comments POC V PO2 (test code = POC V PO2) 41 20-49 [facility] HospitalBaskpqwPROQINRFJ2344-51-94 16:44:00 Test Item Value Reference Range Interpretation Comments POC V HCO3 (test code = POC V HCO3) 25 22-26 [facility] HospitalPwbphngDVQYMXJXA1796-99-57 16:44:00 Test Item Value Reference Range Interpretation Comments POC V BE (test code = POC V BE) 1 -2-2 [facility] HospitalAukyjqsRDCOEZOTV9990-22-64 16:44:00 Test Item Value Reference Range Interpretation Comments POC V O2 Sat (calc) (test code = POC V 76.8 40.0-70.0 O2 Sat (calc)) [facility] HospitalNnwtcxrLLZYTSQWD6775-01-17 16:44:00 Test Item Value Reference Range Interpretation Comments POC V Hgb Tot (test code = POC V Hgb 9.6 12.0-16.0 Tot) [facility] HospitalOqfyhtgGWDKIMPGF5945-98-47 16:44:00 Test Item Value Reference Range Interpretation Comments POC V Glu (test code = POC V Glu) 185 70-99 [facility] HospitalVurtimjFGVVENLBE8667-53-27 16:44:00 Test Item Value Reference Range Interpretation Comments POC V Hct (calc) (test code = POC V Hct 29.0 36.0-48.0 (calc)) [facility] HospitalEzdhwtoKTTWKPLXH7042-81-63 16:44:00 Test Item Value Reference Range Interpretation Comments POC V Cl (test code = POC V Cl) 100 95-109 [facility] HospitalEsuilkqVFDNMXMCI4697-63-37 16:44:00 Test Item Value Reference Range Interpretation Comments POC V Ca Ion at pH 7.4 (test code = POC 1.20 1.05-1.25 V Ca Ion at pH 7.4) [facility] HospitalUanaplnCMGSSUVYW6109-17-81 16:44:00 Test Item Value Reference Range Interpretation Comments POC V Source (test code = POC V Source) BRUNA [facility] HospitalNavqdphDKLKXSVVT2049-83-59 16:44:00 Test Item Value Reference Range Interpretation Comments POC V Temp (test code = POC V Temp) 37.0 [facility] HospitalFshabgkEBXWRXAYF8143-03-52 16:44:00 Test Item Value Reference Range Interpretation Comments POC V Ion Ca (test code = POC V Ion Ca) 1.20 1.05-1.25 [facility] HospitalDdomfqrQDPHBXNDW3204-67-23 16:44:00 Test Item Value Reference Range Interpretation Comments POC V K (test code = POC V K) 4.0 3.5-5.1 [facility] HospitalHywpwwxQPDRBQFWV7136-26-41 16:44:00 Test Item Value Reference Range Interpretation Comments POC V Na (test code = POC V Na) 130 135-145 [facility] HospitalLianmuaBKQHFWLKO4101-61-72 16:44:00 Test Item Value Reference Range Interpretation Comments POC V LA (test code = POC V LA) 1.1 0.5-2.2 [facility] HospitalLbapxxaZDUADQAUJ4318-53-90 16:44:00 Test Item Value Reference Range Interpretation Comments POC V pH (test code = POC V pH) 7.41 1 7.28-7.42 [facility] HospitalUglkmbpLBNGIFDLF4686-96-95 16:44:00 Test Item Value Reference Range Interpretation Comments POC V PCO2 (test code = POC V PCO2) 40 38-52 [facility] HospitalLbgkiewVQBLUNHHZ3462-57-45 16:44:00 Test Item Value Reference Range Interpretation Comments POC V PO2 (test code = POC V PO2) 41 20-49 [facility] HospitalHkaccxpCRUAPZROT3448-58-81 16:44:00 Test Item Value Reference Range Interpretation Comments POC V HCO3 (test code = POC V HCO3) 25 22-26 [facility] HospitalDlvlkebZVEEJTPNN2483-80-93 16:44:00 Test Item Value Reference Range Interpretation Comments POC V BE (test code = POC V BE) 1 -2-2 [facility] HospitalLlalwnkWVUTXCLFH5792-58-25 16:44:00 Test Item Value Reference Range Interpretation Comments POC V O2 Sat (calc) (test code = POC V 76.8 40.0-70.0 O2 Sat (calc)) [facility] HospitalPrnlufmOJFAIULMS5043-18-55 16:44:00 Test Item Value Reference Range Interpretation Comments POC V Hgb Tot (test code = POC V Hgb 9.6 12.0-16.0 Tot) [facility] HospitalNonmgouXBZSCICHG4567-72-92 16:44:00 Test Item Value Reference Range Interpretation Comments POC V Glu (test code = POC V Glu) 185 70-99 [facility] HospitalLpraikiEHBXUSTAM6356-68-73 16:44:00 Test Item Value Reference Range Interpretation Comments POC V Hct (calc) (test code = POC V Hct 29.0 36.0-48.0 (calc)) [facility] HospitalAgylkqoPVACLYXCE6816-44-20 16:44:00 Test Item Value Reference Range Interpretation Comments POC V Cl (test code = POC V Cl) 100 95-109 [facility] HospitalUsewnquUTLKUQQMV5768-50-34 16:44:00 Test Item Value Reference Range Interpretation Comments POC V Ca Ion at pH 7.4 (test code = POC 1.20 1.05-1.25 V Ca Ion at pH 7.4) [facility] HospitalWcjmiawZOADUTLGD5173-31-22 09:27:00 Test Item Value Reference Range Interpretation Comments Vancomycin AUC (test code = Vancomycin 13.5 AUC) [facility] HospitalWyhuwuqRANVHTEAD6327-19-81 09:27:00 Test Item Value Reference Range Interpretation Comments Vancomycin AUC (test code = Vancomycin 13.5 AUC) [facility] HospitalUbwkkbeKUENVXYDL0262-32-68 09:27:00 Test Item Value Reference Range Interpretation Comments Vancomycin AUC (test code = Vancomycin 13.5 AUC) [facility] HospitalVfcadwyTIIOAMFYB3908-72-14 09:27:00 Test Item Value Reference Range Interpretation Comments Vancomycin AUC (test code = Vancomycin 13.5 AUC) [facility] HospitalHvxtiakWYRRBEEAH7184-87-40 09:27:00 Test Item Value Reference Range Interpretation Comments Vancomycin AUC (test code = Vancomycin 13.5 AUC) [place] 286112-10-24 09:27:00 Test Item Value Reference Range Interpretation Comments Vancomycin AUC (test code = Vancomycin 13.5 AUC) [facility] HospitalUnozpdmOPXOXZSYC8411-38-61 09:27:00 Test Item Value Reference Range Interpretation Comments Vancomycin AUC (test code = Vancomycin 13.5 AUC) [facility]QujldzdWFFNJCWEEJ6536-35-55 03:00:00 Test Item Value Reference Range Interpretation Comments Hgb (test code = Hgb) 7.6 12.0-16.0 [place] 587612-10-24 03:00:00 Test Item Value Reference Range Interpretation Comments Hct (test code = Hct) 23.1 36.0-48.0 [facility] HospitalKztwmqjGGAWVKEFVL3946-29-10 03:00:00 Test Item Value Reference Range Interpretation Comments Hgb (test code = Hgb) 7.6 12.0-16.0 [facility] HospitalFfvetgpFEJHPKGIJH5789-73-53 03:00:00 Test Item Value Reference Range Interpretation Comments Hct (test code = Hct) 23.1 36.0-48.0 [facility] HospitalExmfppuCRKNAHMXXS3469-92-62 03:00:00 Test Item Value Reference Range Interpretation Comments Hgb (test code = Hgb) 7.6 12.0-16.0 [facility] HospitalJkjfyvlMLKQHQMWQH1482-77-10 03:00:00 Test Item Value Reference Range Interpretation Comments Hct (test code = Hct) 23.1 36.0-48.0 [facility] HospitalRjnlodxJVVAKJTNNX7653-42-62 03:00:00 Test Item Value Reference Range Interpretation Comments Hgb (test code = Hgb) 7.6 12.0-16.0 [facility] HospitalQlylomaJEIYMVDSOI2232-75-72 03:00:00 Test Item Value Reference Range Interpretation Comments Hct (test code = Hct) 23.1 36.0-48.0 [facility] HospitalTlornjvURFIFTLKVV4778-35-46 03:00:00 Test Item Value Reference Range Interpretation Comments Hgb (test code = Hgb) 7.6 12.0-16.0 [facility] HospitalMsyaysqERZCYQFEOS8725-99-56 03:00:00 Test Item Value Reference Range Interpretation Comments Hct (test code = Hct) 23.1 36.0-48.0 [place] 587612-10-24 03:00:00 Test Item Value Reference Range Interpretation Comments Hgb (test code = Hgb) 7.6 12.0-16.0 [facility]W4084[facility] 03:00:00 Test Item Value Reference Range Interpretation Comments Hct (test code = Hct) 23.1 36.0-48.0 [facility]EmtquicZCYXBPYQUP0456-78-09 03:00:00 Test Item Value Reference Range Interpretation Comments Hgb (test code = Hgb) 7.6 12.0-16.0 [facility] HospitalXadbtqcWGYXFHJKPJ2011-57-50 03:00:00 Test Item Value Reference Range Interpretation Comments Hct (test code = Hct) 23.1 36.0-48.0 [facility]: Mltfw7311-34-00 15:20:00 Test Item Value Reference Range Interpretation Comments Culture: Blood (test code No Growth At 5 Days = Culture: Blood) [facility]: Iwzuz2175-72-03 15:20:00 Test Item Value Reference Range Interpretation Comments Culture: Blood (test code No Growth At 5 Days = Culture: Blood) [facility]: Ldofg1185-80-73 15:20:00 Test Item Value Reference Range Interpretation Comments Culture: Blood (test code No Growth At 5 Days = Culture: Blood) [facility]: Iyngj7265-30-81 15:20:00 Test Item Value Reference Range Interpretation Comments Culture: Blood (test code No Growth At 5 Days = Culture: Blood) [facility]: Zvtqe9756-96-39 15:20:00 Test Item Value Reference Range Interpretation Comments Culture: Blood (test code No Growth At 5 Days = Culture: Blood) [facility]: Ndrtm2975-32-58 15:20:00 Test Item Value Reference Range Interpretation Comments Culture: Blood (test code No Growth At 5 Days = Culture: Blood) [facility]: Npmii6244-10-19 15:20:00 Test Item Value Reference Range Interpretation Comments Culture: Blood (test code No Growth At 5 Days = Culture: Blood) [facility] HospitalOmzwvooWLPJBKANQZ6117-78-45 09:39:00 Test Item Value Reference Range Interpretation Comments MCH (test code = MCH) 27.9 pg 27.0-31.0 [facility] HospitalCmdwhwyOAXRUJEWZQ1071-37-48 09:39:00 Test Item Value Reference Range Interpretation Comments MCHC (test code = MCHC) 33.2 32.0-36.0 [place] [address]-10-23 09:39:00 Test Item Value Reference Range Interpretation Comments RDW (test code = RDW) 12.6 11.5-14.5 [place] [address]-10-23 09:39:00 Test Item Value Reference Range Interpretation Comments Platelet (test code = Platelet) 358 133-450 [place] [address]-10-23 09:39:00 Test Item Value Reference Range Interpretation Comments MPV (test code = MPV) 8.1 7.4-10.[address]10-23 09:39:00 Test Item Value Reference Range Interpretation Comments Ca Ion WB (test code = Ca Ion WB) 1.11 1.05-1.[address]10-23 09:39:00 Test Item Value Reference Range Interpretation Comments Ca Ion at pH 7.4 WB (test code = Ca Ion 1.13 1.05-1.25 at pH 7.4 WB) [place] 604762-10-23 09:39:00 Test Item Value Reference Range Interpretation Comments Glucose Lvl (test code = Glucose Lvl) 150 70-99 [place] 604762-10-23 09:39:00 Test Item Value Reference Range Interpretation Comments BUN (test code = BUN) 9 7-22 [place] 604762-10-23 09:39:00 Test Item Value Reference Range Interpretation Comments Creatinine Lvl (test code = Creatinine 0.42 0.50-1.40 Lvl) [place] 604762-10-23 09:39:00 Test Item Value Reference Range Interpretation Comments Sodium Lvl (test code = Sodium Lvl) 134 135-145 [place] 604762-10-23 09:39:00 Test Item Value Reference Range Interpretation Comments Potassium Lvl (test code = Potassium 3.3 3.5-5.1 Lvl) [place] 604762-10-23 09:39:00 Test Item Value Reference Range Interpretation Comments Chloride Lvl (test code = Chloride Lvl) 102 95-109 [place] 604762-10-23 09:39:00 Test Item Value Reference Range Interpretation Comments CO2 (test code = CO2) 25 24-32 [place] 604762-10-23 09:39:00 Test Item Value Reference Range Interpretation Comments Calcium Lvl (test code = Calcium Lvl) 8.7 8.5-10.5 [place] [address]-10-23 09:39:00 Test Item Value Reference Range Interpretation Comments AGAP (test code = AGAP) 10.3 10.0-20.0 [place] 604762-10-23 09:39:00 Test Item Value Reference Range Interpretation Comments eGFR (test code = eGFR) 116 [place] [address]-10-23 09:39:00 Test Item Value Reference Range Interpretation Comments Magnesium Lvl (test code = Magnesium 1.9 1.8-2.4 Lvl) [place] 604762-10-23 09:39:00 Test Item Value Reference Range Interpretation Comments Phosphorus (test code = Phosphorus) 2.6 2.5-4.5 [place] 587612-10-23 09:39:00 Test Item Value Reference Range Interpretation Comments Segs (test code = Segs) 68.1 45.0-75.0 [place] [address]-10-23 09:39:00 Test Item Value Reference Range Interpretation Comments Lymphocytes (test code = Lymphocytes) 20.4 20.0-40.0 [place] [address]-10-23 09:39:00 Test Item Value Reference Range Interpretation Comments Monocytes (test code = Monocytes) 6.7 2.0-12.0 [place] [address]-10-23 09:39:00 Test Item Value Reference Range Interpretation Comments Eosinophils (test code = 4.1 See_Comment [A utomated message] The Eosinophils) system which nerated this result tra nsmitted reference range : <=4.0. The reference r kyle was not used to int erpret this result as normal/abnormal . [place] [address]-10-23 09:39:00 Test Item Value Reference Range Interpretation Comments Basophils (test code = 0.7 See_Comment [Aut omated message] The Basophils) system which ge nerated this result tra nsmitted reference range : <=1.0. The reference r kyle was not used to int erpret this result as normal/abnormal . [place] [address]-10-23 09:39:00 Test Item Value Reference Range Interpretation Comments Neutrophils # (test code = Neutrophils 6.7 1.5-8.1 #) [facility] HospitalNkrkyolJLZGEDKCST4419-37-23 09:39:00 Test Item Value Reference Range Interpretation Comments Lymphocytes # (test code = Lymphocytes 2.0 1.0-5.5 #) [place] 587612-10-23 09:39:00 Test Item Value Reference Range Interpretation Comments Monocytes # (test code 0.7 See_Comment [Aut omated message] The = Monocytes #) system which generated this result tra nsmitted reference range : <=0.8. The reference r kyle was not used to int erpret this result as normal/abnormal . [place] 587612-10-23 09:39:00 Test Item Value Reference Range Interpretation Comments Eosinophils # (test code 0.4 See_Comment [A utomated message] The = Eosinophils #) system whic h generated this result tra nsmitted reference range : <=0.5. The reference r kyle was not used to int erpret this result as normal/abnormal . [facility] HospitalAtnkhikQOXYFOWFQU5826-23-57 09:39:00 Test Item Value Reference Range Interpretation Comments Basophils # (test code 0.1 See_Comment [Aut omated message] The = Basophils #) system which generated this result tra nsmitted reference range : <=0.2. The reference r kyle was not used to int erpret this result as normal/abnormal . [place] 587612-10-23 09:39:00 Test Item Value Reference Range Interpretation Comments WBC (test code = WBC) 9.9 3.7-10.4 [place] [address]-10-23 09:39:00 Test Item Value Reference Range Interpretation Comments RBC (test code = RBC) 3.05 4.20-5.40 [place] [address]-10-23 09:39:00 Test Item Value Reference Range Interpretation Comments Hgb (test code = Hgb) 8.5 12.0-16.0 [place] [address]-10-23 09:39:00 Test Item Value Reference Range Interpretation Comments Hct (test code = Hct) 25.6 36.0-48.0 [place] [address]-10-23 09:39:00 Test Item Value Reference Range Interpretation Comments MCV (test code = MCV) 83.9 80.0-98.0 [place] 587612-10-23 09:39:00 Test Item Value Reference Range Interpretation Comments MCH (test code = MCH) 27.9 pg 27.0-31.0 [facility] HospitalNecvmulYIBKEIKNRR3994-38-88 09:39:00 Test Item Value Reference Range Interpretation Comments MCHC (test code = MCHC) 33.2 32.0-36.0 [place] 587612-10-23 09:39:00 Test Item Value Reference Range Interpretation Comments RDW (test code = RDW) 12.6 11.5-14.5 [place] 587612-10-23 09:39:00 Test Item Value Reference Range Interpretation Comments Platelet (test code = Platelet) 358 752-450 [facility] HospitalQxlrkbkWNBPXSIULA8212-20-68 09:39:00 Test Item Value Reference Range Interpretation Comments MPV (test code = MPV) 8.1 7.4-10.4 [facility]PARATHY[facility]ID BBVSQHX0051-70-95 09:39:00 Test Item Value Reference Range Interpretation Comments Ca Ion WB (test code = Ca Ion WB) 1.11 1.05-1.25 [facility]2022-10-23 09:39:00 Test Item Value Reference Range Interpretation Comments Glucose Lvl (test code = Glucose Lvl) 150 70-99 [facility]2022-10-23 09:39:00 Test Item Value Reference Range Interpretation Comments BUN (test code = BUN) 9 7-22 [place] 604762-10-23 09:39:00 Test Item Value Reference Range Interpretation Comments Creatinine Lvl (test code = Creatinine 0.42 0.50-1.40 Lvl) [facility]2022-10-23 09:39:00 Test Item Value Reference Range Interpretation Comments Sodium Lvl (test code = Sodium Lvl) 134 135-145 [facility]2022-10-23 09:39:00 Test Item Value Reference Range Interpretation Comments Potassium Lvl (test code = Potassium 3.3 3.5-5.1 Lvl) [place] 604762-10-23 09:39:00 Test Item Value Reference Range Interpretation Comments Chloride Lvl (test code = Chloride Lvl) 102 95-109 [facility]2022-10-23 09:39:00 Test Item Value Reference Range Interpretation Comments CO2 (test code = CO2) 25 24-32 [facility] CenterPARATHYROID PPBESAW0938-70-80 09:39:00 Test Item Value Reference Range Interpretation Comments Ca Ion at pH 7.4 WB (test code = Ca Ion 1.13 1.05-1.25 at pH 7.4 WB) [facility]2022-10-23 09:39:00 Test Item Value Reference Range Interpretation Comments Calcium Lvl (test code = Calcium Lvl) 8.7 8.5-10.5 [facility]2022-10-23 09:39:00 Test Item Value Reference Range Interpretation Comments AGAP (test code = AGAP) 10.3 10.0-20.0 [facility]2022-10-23 09:39:00 Test Item Value Reference Range Interpretation Comments eGFR (test code = eGFR) 116 [facility]2022-10-23 09:39:00 Test Item Value Reference Range Interpretation Comments Magnesium Lvl (test code = Magnesium 1.9 1.8-2.4 Lvl) [facility]2022-10-23 09:39:00 Test Item Value Reference Range Interpretation Comments Phosphorus (test code = Phosphorus) 2.6 2.5-4.5 [facility] HospitalVkazcygLFTBCQTMOA3818-17-21 09:39:00 Test Item Value Reference Range Interpretation Comments Segs (test code = Segs) 68.1 45.0-75.0 [facility] HospitalLqopzdhAIRVBUKXCE5722-98-78 09:39:00 Test Item Value Reference Range Interpretation Comments Lymphocytes (test code = Lymphocytes) 20.4 20.0-40.0 [place] [address]-10-23 09:39:00 Test Item Value Reference Range Interpretation Comments Monocytes (test code = Monocytes) 6.7 2.0-12.0 [place] [address]-10-23 09:39:00 Test Item Value Reference Range Interpretation Comments Eosinophils (test code = 4.1 See_Comment [A utomated message] The Eosinophils) system which ge nerated this result tra nsmitted reference range : <=4.0. The reference r kyle was not used to int erpret this result as normal/abnormal . [place] [address]-10-23 09:39:00 Test Item Value Reference Range Interpretation Comments Basophils (test code = 0.7 See_Comment [Aut omated message] The Basophils) system which ge nerated this result tra nsmitted reference range : <=1.0. The reference r kyle was not used to int erpret this result as normal/abnormal . [place] 587612-10-23 09:39:00 Test Item Value Reference Range Interpretation Comments Neutrophils # (test code = Neutrophils 6.7 1.5-8.1 #) [place] [address]-10-23 09:39:00 Test Item Value Reference Range Interpretation Comments Lymphocytes # (test code = Lymphocytes 2.0 1.0-5.5 #) [place] 587612-10-23 09:39:00 Test Item Value Reference Range Interpretation Comments Monocytes # (test code 0.7 See_Comment [Aut omated message] The = Monocytes #) system which generated this result tra nsmitted reference range : <=0.8. The reference r kyle was not used to int erpret this result as normal/abnormal . [place] 587612-10-23 09:39:00 Test Item Value Reference Range Interpretation Comments Eosinophils # (test code 0.4 See_Comment [A utomated message] The = Eosinophils #) system whic h generated this result tra nsmitted reference range : <=0.5. The reference r kyle was not used to int erpret this result as normal/abnormal . [facility] HospitalOityjfdNWMNXQFARB1734-13-09 09:39:00 Test Item Value Reference Range Interpretation Comments Basophils # (test code 0.1 See_Comment [Aut omated message] The = Basophils #) system which generated this result tra nsmitted reference range : <=0.2. The reference r kyle was not used to int erpret this result as normal/abnormal . [place] 587612-10-23 09:39:00 Test Item Value Reference Range Interpretation Comments WBC (test code = WBC) 9.9 3.7-10.4 [place] 587612-10-23 09:39:00 Test Item Value Reference Range Interpretation Comments RBC (test code = RBC) 3.05 4.20-5.40 [place] [address]-10-23 09:39:00 Test Item Value Reference Range Interpretation Comments Hgb (test code = Hgb) 8.5 12.0-16.0 [place] [address]-10-23 09:39:00 Test Item Value Reference Range Interpretation Comments Hct (test code = Hct) 25.6 36.0-48.0 [facility] HospitalJqhkoqxEKHEZDXMDP5010-92-51 09:39:00 Test Item Value Reference Range Interpretation Comments MCV (test code = MCV) 83.9 80.0-98.0 [place] 587612-10-23 09:39:00 Test Item Value Reference Range Interpretation Comments MCH (test code = MCH) 27.9 pg 27.0-31.0 [facility] HospitalRoempwlBSOSRRVADY8440-77-02 09:39:00 Test Item Value Reference Range Interpretation Comments MCHC (test code = MCHC) 33.2 32.0-36.0 [facility] [facility]OP7272-43-49 09:39:00 Test Item Value Reference Range Interpretation Comments RDW (test code = RDW) 12.6 11.5-14.5 [place] 587612-10-23 09:39:00 Test Item Value Reference Range Interpretation Comments Platelet (test code = Platelet) 358 133-450 [facility]NWLL[facility]9470[facility]69-39 09:39:00 Test Item Value Reference Range Interpretation Comments MPV (test code = MPV) 8.1 7.4-10.4 [facility]2022-10-23 09:39:00 Test Item Value Reference Range Interpretation Comments Ca Ion WB (test code = Ca Ion WB) 1.11 1.05-1.25 [place] 854862-10-23 09:39:00 Test Item Value Reference Range Interpretation Comments Ca Ion at pH 7.4 WB (test code = Ca Ion 1.13 1.05-1.25 at pH 7.4 WB) [place] 604762-10-23 09:39:00 Test Item Value Reference Range Interpretation Comments Glucose Lvl (test code = Glucose Lvl) 150 70-99 [facility]2022-10-23 09:39:00 Test Item Value Reference Range Interpretation Comments BUN (test code = BUN) 9 7-22 [place] 604762-10-23 09:39:00 Test Item Value Reference Range Interpretation Comments Creatinine Lvl (test code = Creatinine 0.42 0.50-1.40 Lvl) [place] [address]-10-23 09:39:00 Test Item Value Reference Range Interpretation Comments Sodium Lvl (test code = Sodium Lvl) 134 135-145 [place] 604762-10-23 09:39:00 Test Item Value Reference Range Interpretation Comments Potassium Lvl (test code = Potassium 3.3 3.5-5.1 Lvl) [place] 604762-10-23 09:39:00 Test Item Value Reference Range Interpretation Comments Chloride Lvl (test code = Chloride Lvl) 102 95-109 [place] 604762-10-23 09:39:00 Test Item Value Reference Range Interpretation Comments CO2 (test code = CO2) 25 24-32 [place] 604762-10-23 09:39:00 Test Item Value Reference Range Interpretation Comments Calcium Lvl (test code = Calcium Lvl) 8.7 8.5-10.5 [place] 604762-10-23 09:39:00 Test Item Value Reference Range Interpretation Comments AGAP (test code = AGAP) 10.3 10.0-20.0 [place] 604762-10-23 09:39:00 Test Item Value Reference Range Interpretation Comments eGFR (test code = eGFR) 116 [place] [address]-10-23 09:39:00 Test Item Value Reference Range Interpretation Comments Magnesium Lvl (test code = Magnesium 1.9 1.8-2.4 Lvl) [place] 604762-10-23 09:39:00 Test Item Value Reference Range Interpretation Comments Phosphorus (test code = Phosphorus) 2.6 2.5-4.5 [place] [address]-10-23 09:39:00 Test Item Value Reference Range Interpretation Comments Segs (test code = Segs) 68.1 45.0-75.0 [place] [address]-10-23 09:39:00 Test Item Value Reference Range Interpretation Comments Lymphocytes (test code = Lymphocytes) 20.4 20.0-40.0 [place] [address]-10-23 09:39:00 Test Item Value Reference Range Interpretation Comments Monocytes (test code = Monocytes) 6.7 2.0-12.0 [place] [address]-10-23 09:39:00 Test Item Value Reference Range Interpretation Comments Eosinophils (test code = 4.1 See_Comment [A utomated message] The Eosinophils) system which ge nerated this result tra nsmitted reference range : <=4.0. The reference r kyle was not used to int erpret this result as normal/abnormal . [place] [address]-10-23 09:39:00 Test Item Value Reference Range Interpretation Comments Basophils (test code = 0.7 See_Comment [Aut omated message] The Basophils) system which ge nerated this result tra nsmitted reference range : <=1.0. The reference r kyle was not used to int erpret this result as normal/abnormal . [place] [address]-10-23 09:39:00 Test Item Value Reference Range Interpretation Comments Neutrophils # (test code = Neutrophils 6.7 1.5-8.1 #) [address]10-23 09:39:00 Test Item Value Reference Range Interpretation Comments Lymphocytes # (test code = Lymphocytes 2.0 1.0-5.5 #) [address]10-23 09:39:00 Test Item Value Reference Range Interpretation Comments Monocytes # (test code 0.7 See_Comment [Aut omated message] The = Monocytes #) system which generated this result tra nsmitted reference range : <=0.8. The reference r kyle was not used to int erpret this result as normal/abnormal . [place] [address]-10-23 09:39:00 Test Item Value Reference Range Interpretation Comments Eosinophils # (test code 0.4 See_Comment [A utomated message] The = Eosinophils #) system whic h generated this result tra nsmitted reference range : <=0.5. The reference r kyle was not used to int erpret this result as normal/abnormal . [place] [address]-10-23 09:39:00 Test Item Value Reference Range Interpretation Comments Basophils # (test code 0.1 See_Comment [Aut omated message] The = Basophils #) system which generated this result tra nsmitted reference range : <=0.2. The reference r kyle was not used to int erpret this result as normal/abnormal . [facility]PzhegewAOKMEDBJUV9094-72-40 09:39:00 Test Item Value Reference Range Interpretation Comments WBC (test code = WBC) 9.9 3.7-10.4 [place] 587612-10-23 09:39:00 Test Item Value Reference Range Interpretation Comments RBC (test code = RBC) 3.05 4.20-5.40 [place] 587612-10-23 09:39:00 Test Item Value Reference Range Interpretation Comments Hgb (test code = Hgb) 8.5 12.0-16.0 [place] 587612-10-23 09:39:00 Test Item Value Reference Range Interpretation Comments Hct (test code = Hct) 25.6 36.0-48.0 [facility] HospitalCmlsnyvNLIUKJWYJC3374-77-56 09:39:00 Test Item Value Reference Range Interpretation Comments MCV (test code = MCV) 83.9 80.0-98.0 [place] 587612-10-23 09:39:00 Test Item Value Reference Range Interpretation Comments MCH (test code = MCH) 27.9 pg 27.0-31.0 [facility] HospitalNautvczMWHKNVSNGK8315-64-50 09:39:00 Test Item Value Reference Range Interpretation Comments MCHC (test code = MCHC) 33.2 32.0-36.0 [facility] HospitalJlvaunyIKLECOHBDZ2736-91-81 09:39:00 Test Item Value Reference Range Interpretation Comments RDW (test code = RDW) 12.6 11.5-14.5 [place] 587612-10-23 09:39:00 Test Item Value Reference Range Interpretation Comments Platelet (test code = Platelet) 358 133-450 [facility] HospitalWknvyjqIYOLJRQEUH8450-89-09 09:39:00 Test Item Value Reference Range Interpretation Comments MPV (test code = MPV) 8.1 7.4-10.4 [facility]PAR[facility] DGJFWYR4365-82-02 09:39:00 Test Item Value Reference Range Interpretation Comments Ca Ion WB (test code = Ca Ion WB) 1.11 1.05-1.25 [facility]ATHY[facility] BYUCPAD4115-31-90 09:39:00 Test Item Value Reference Range Interpretation Comments Ca Ion at pH 7.4 WB (test code = Ca Ion 1.13 1.05-1.25 at pH 7.4 WB) [place] 604762-10-23 09:39:00 Test Item Value Reference Range Interpretation Comments Glucose Lvl (test code = Glucose Lvl) 150 70-99 [place] 604762-10-23 09:39:00 Test Item Value Reference Range Interpretation Comments BUN (test code = BUN) 9 7-22 [place] 604762-10-23 09:39:00 Test Item Value Reference Range Interpretation Comments Creatinine Lvl (test code = Creatinine 0.42 0.50-1.40 Lvl) [place] 604762-10-23 09:39:00 Test Item Value Reference Range Interpretation Comments Sodium Lvl (test code = Sodium Lvl) 134 135-145 [place] 604762-10-23 09:39:00 Test Item Value Reference Range Interpretation Comments Potassium Lvl (test code = Potassium 3.3 3.5-5.1 Lvl) [place] 604762-10-23 09:39:00 Test Item Value Reference Range Interpretation Comments Chloride Lvl (test code = Chloride Lvl) 102 95-109 [place] 604762-10-23 09:39:00 Test Item Value Reference Range Interpretation Comments CO2 (test code = CO2) 25 24-32 [place] 604762-10-23 09:39:00 Test Item Value Reference Range Interpretation Comments Calcium Lvl (test code = Calcium Lvl) 8.7 8.5-10.5 [place] 604762-10-23 09:39:00 Test Item Value Reference Range Interpretation Comments AGAP (test code = AGAP) 10.3 10.0-20.0 [place] 604762-10-23 09:39:00 Test Item Value Reference Range Interpretation Comments eGFR (test code = eGFR) 116 [place] 604762-10-23 09:39:00 Test Item Value Reference Range Interpretation Comments Magnesium Lvl (test code = Magnesium 1.9 1.8-2.4 Lvl) [place] 604762-10-23 09:39:00 Test Item Value Reference Range Interpretation Comments Phosphorus (test code = Phosphorus) 2.6 2.5-4.5 [facility]150[facility]27 09:39:00 Test Item Value Reference Range Interpretation Comments Segs (test code = Segs) 68.1 45.0-75.0 [place] [address]-10-23 09:39:00 Test Item Value Reference Range Interpretation Comments Lymphocytes (test code = Lymphocytes) 20.4 20.0-40.0 [place] [address]-10-23 09:39:00 Test Item Value Reference Range Interpretation Comments Monocytes (test code = Monocytes) 6.7 2.0-12.0 [place] [address]-10-23 09:39:00 Test Item Value Reference Range Interpretation Comments Eosinophils (test code = 4.1 See_Comment [A utomated message] The Eosinophils) system which ge nerated this result tra nsmitted reference range : <=4.0. The reference r kyle was not used to int erpret this result as normal/abnormal . [place] [address]-10-23 09:39:00 Test Item Value Reference Range Interpretation Comments Basophils (test code = 0.7 See_Comment [Aut omated message] The Basophils) system which ge nerated this result tra nsmitted reference range : <=1.0. The reference r kyle was not used to int erpret this result as normal/abnormal . [place] 587612-10-23 09:39:00 Test Item Value Reference Range Interpretation Comments Neutrophils # (test code = Neutrophils 6.7 1.5-8.1 #) [place] [address]-10-23 09:39:00 Test Item Value Reference Range Interpretation Comments Lymphocytes # (test code = Lymphocytes 2.0 1.0-5.5 #) [place] [address]-10-23 09:39:00 Test Item Value Reference Range Interpretation Comments Monocytes # (test code 0.7 See_Comment [Aut omated message] The = Monocytes #) system which generated this result tra nsmitted reference range : <=0.8. The reference r kyle was not used to int erpret this result as normal/abnormal . [place] [address]-10-23 09:39:00 Test Item Value Reference Range Interpretation Comments Eosinophils # (test code 0.4 See_Comment [A utomated message] The = Eosinophils #) system whic h generated this result tra nsmitted reference range : <=0.5. The reference r kyle was not used to int erpret this result as normal/abnormal . [facility] HospitalYwfpkbaPDHFDFPIMI6721-18-37 09:39:00 Test Item Value Reference Range Interpretation Comments Basophils # (test code 0.1 See_Comment [Aut omated message] The = Basophils #) system which generated this result tra nsmitted reference range : <=0.2. The reference r kyle was not used to int erpret this result as normal/abnormal . [facility] HospitalYlinvpbGOSSMGKZKC7957-06-41 09:39:00 Test Item Value Reference Range Interpretation Comments WBC (test code = WBC) 9.9 3.7-10.4 [facility] HospitalXmxljtyZGYEYCJEIN2258-84-73 09:39:00 Test Item Value Reference Range Interpretation Comments RBC (test code = RBC) 3.05 4.20-5.40 [facility] HospitalMzznonnHWYEXSYULY0095-87-27 09:39:00 Test Item Value Reference Range Interpretation Comments Hgb (test code = Hgb) 8.5 12.0-16.0 [facility] HospitalKwmskxiSWPULNDPPV2795-41-93 09:39:00 Test Item Value Reference Range Interpretation Comments Hct (test code = Hct) 25.6 36.0-48.0 [facility] HospitalFetraiiCEGBNUAEUJ6498-14-89 09:39:00 Test Item Value Reference Range Interpretation Comments MCV (test code = MCV) 83.9 80.0-98.0 [facility] HospitalFqjcvxmRFJVRFDPEE5921-57-64 09:39:00 Test Item Value Reference Range Interpretation Comments MCH (test code = MCH) 27.9 pg 27.0-31.0 [facility] HospitalEzwnjzvINPTXSLLRZ3744-91-88 09:39:00 Test Item Value Reference Range Interpretation Comments MCHC (test code = MCHC) 33.2 32.0-36.0 [facility] HospitalRsoabxfLRHNBDYRVS5940-16-51 09:39:00 Test Item Value Reference Range Interpretation Comments RDW (test code = RDW) 12.6 11.5-14.5 [facility] HospitalRzdaaerEUHDKROGPG2174-38-56 09:39:00 Test Item Value Reference Range Interpretation Comments Platelet (test code = Platelet) 358 133-450 [facility] HospitalHjuyogfKSSKVDBEVB7029-57-61 09:39:00 Test Item Value Reference Range Interpretation Comments MPV (test code = MPV) 8.1 7.4-10.4 [place] 854862-10-23 09:39:00 Test Item Value Reference Range Interpretation Comments Ca Ion WB (test code = Ca Ion WB) 1.11 1.05-1.25 [place] 854862-10-23 09:39:00 Test Item Value Reference Range Interpretation Comments Ca Ion at pH 7.4 WB (test code = Ca Ion 1.13 1.05-1.25 at pH 7.4 WB) [place] 604762-10-23 09:39:00 Test Item Value Reference Range Interpretation Comments Glucose Lvl (test code = Glucose Lvl) 150 70-99 [place] 604762-10-23 09:39:00 Test Item Value Reference Range Interpretation Comments BUN (test code = BUN) 9 7-22 [place] 604762-10-23 09:39:00 Test Item Value Reference Range Interpretation Comments Creatinine Lvl (test code = Creatinine 0.42 0.50-1.40 Lvl) [place] 604762-10-23 09:39:00 Test Item Value Reference Range Interpretation Comments Sodium Lvl (test code = Sodium Lvl) 134 135-145 [place] 604762-10-23 09:39:00 Test Item Value Reference Range Interpretation Comments Potassium Lvl (test code = Potassium 3.3 3.5-5.1 Lvl) [facility]2022-10-23 09:39:00 Test Item Value Reference Range Interpretation Comments Chloride Lvl (test code = Chloride Lvl) 102 95-109 [facility]2022-10-23 09:39:00 Test Item Value Reference Range Interpretation Comments CO2 (test code = CO2) 25 24-32 [place] 604762-10-23 09:39:00 Test Item Value Reference Range Interpretation Comments Calcium Lvl (test code = Calcium Lvl) 8.7 8.5-10.5 [place] 604762-10-23 09:39:00 Test Item Value Reference Range Interpretation Comments AGAP (test code = AGAP) 10.3 10.0-20.0 [place] 604762-10-23 09:39:00 Test Item Value Reference Range Interpretation Comments eGFR (test code = eGFR) 116 [place] 604762-10-23 09:39:00 Test Item Value Reference Range Interpretation Comments Magnesium Lvl (test code = Magnesium 1.9 1.8-2.4 Lvl) [facility]2022-10-23 09:39:00 Test Item Value Reference Range Interpretation Comments Phosphorus (test code = Phosphorus) 2.6 2.5-4.5 [place] [address]-10-23 09:39:00 Test Item Value Reference Range Interpretation Comments Segs (test code = Segs) 68.1 45.0-75.0 [place] [address]-10-23 09:39:00 Test Item Value Reference Range Interpretation Comments Lymphocytes (test code = Lymphocytes) 20.4 20.0-40.0 [place] [address]-10-23 09:39:00 Test Item Value Reference Range Interpretation Comments Monocytes (test code = Monocytes) 6.7 2.0-12.0 [place] [address]-10-23 09:39:00 Test Item Value Reference Range Interpretation Comments Eosinophils (test code = 4.1 See_Comment [A utomated message] The Eosinophils) system which ge nerated this result tra nsmitted reference range : <=4.0. The reference r kyle was not used to int erpret this result as normal/abnormal . [facility] HospitalVyqpadoCGURAMMQZW4604-63-97 09:39:00 Test Item Value Reference Range Interpretation Comments Basophils (test code = 0.7 See_Comment [Aut omated message] The Basophils) system which ge nerated this result tra nsmitted reference range : <=1.0. The reference r kyle was not used to int erpret this result as normal/abnormal . [place] 587612-10-23 09:39:00 Test Item Value Reference Range Interpretation Comments Neutrophils # (test code = Neutrophils 6.7 1.5-8.1 #) [place] [address]-10-23 09:39:00 Test Item Value Reference Range Interpretation Comments Lymphocytes # (test code = Lymphocytes 2.0 1.0-5.5 #) [place] [address]-10-23 09:39:00 Test Item Value Reference Range Interpretation Comments Monocytes # (test code 0.7 See_Comment [Aut omated message] The = Monocytes #) system which generated this result tra nsmitted reference range : <=0.8. The reference r kyle was not used to int erpret this result as normal/abnormal . [facility] HospitalRuxaxlmGVWXXVIQOC2379-00-56 09:39:00 Test Item Value Reference Range Interpretation Comments Eosinophils # (test code 0.4 See_Comment [A utomated message] The = Eosinophils #) system whic h generated this result tra nsmitted reference range : <=0.5. The reference r kyle was not used to int erpret this result as normal/abnormal . [facility] HospitalLbclcbwMZEXQCIZEO4692-45-22 09:39:00 Test Item Value Reference Range Interpretation Comments Basophils # (test code 0.1 See_Comment [Aut omated message] The = Basophils #) system which generated this result tra nsmitted reference range : <=0.2. The reference r kyle was not used to int erpret this result as normal/abnormal . [facility] HospitalMcdmzhpLTMRCNDLXP4827-46-61 09:39:00 Test Item Value Reference Range Interpretation Comments WBC (test code = WBC) 9.9 3.7-10.4 [place] 587612-10-23 09:39:00 Test Item Value Reference Range Interpretation Comments RBC (test code = RBC) 3.05 4.20-5.40 [facility] HospitalQfhvxqwPDFQSJTNUZ9719-58-55 09:39:00 Test Item Value Reference Range Interpretation Comments Hgb (test code = Hgb) 8.5 12.0-16.0 [place] 587612-10-23 09:39:00 Test Item Value Reference Range Interpretation Comments Hct (test code = Hct) 25.6 36.0-48.0 [place] 587612-10-23 09:39:00 Test Item Value Reference Range Interpretation Comments MCV (test code = MCV) 83.9 80.0-98.0 [place] [address]-10-23 09:39:00 Test Item Value Reference Range Interpretation Comments MCH (test code = MCH) 27.9 pg 27.0-31.0 [facility] HospitalUvikgcpYTLVHZCGLR1855-13-95 09:39:00 Test Item Value Reference Range Interpretation Comments MCHC (test code = MCHC) 33.2 32.0-36.0 [place] 587612-10-23 09:39:00 Test Item Value Reference Range Interpretation Comments RDW (test code = RDW) 12.6 11.5-14.5 [place] [address]-10-23 09:39:00 Test Item Value Reference Range Interpretation Comments Platelet (test code = Platelet) 358 133-450 [place] 587612-10-23 09:39:00 Test Item Value Reference Range Interpretation Comments MPV (test code = MPV) 8.1 7.4-10.4 [place] 854862-10-23 09:39:00 Test Item Value Reference Range Interpretation Comments Ca Ion WB (test code = Ca Ion WB) 1.11 1.05-1.25 [place] [address]-10-23 09:39:00 Test Item Value Reference Range Interpretation Comments Ca Ion at pH 7.4 WB (test code = Ca Ion 1.13 1.05-1.25 at pH 7.4 WB) [place] 604762-10-23 09:39:00 Test Item Value Reference Range Interpretation Comments Glucose Lvl (test code = Glucose Lvl) 150 70-99 [place] 604762-10-23 09:39:00 Test Item Value Reference Range Interpretation Comments BUN (test code = BUN) 9 7-22 [place] [address]-10-23 09:39:00 Test Item Value Reference Range Interpretation Comments Creatinine Lvl (test code = Creatinine 0.42 0.50-1.40 Lvl) [place] 604762-10-23 09:39:00 Test Item Value Reference Range Interpretation Comments Sodium Lvl (test code = Sodium Lvl) 134 135-145 [place] 604762-10-23 09:39:00 Test Item Value Reference Range Interpretation Comments Potassium Lvl (test code = Potassium 3.3 3.5-5.1 Lvl) [place] 604762-10-23 09:39:00 Test Item Value Reference Range Interpretation Comments Chloride Lvl (test code = Chloride Lvl) 102 95-109 [place] 604762-10-23 09:39:00 Test Item Value Reference Range Interpretation Comments CO2 (test code = CO2) 25 24-32 [place] 604762-10-23 09:39:00 Test Item Value Reference Range Interpretation Comments Calcium Lvl (test code = Calcium Lvl) 8.7 8.5-10.5 [address]10-23 09:39:00 Test Item Value Reference Range Interpretation Comments AGAP (test code = AGAP) 10.3 10.0-20.0 [place] [address]-10-23 09:39:00 Test Item Value Reference Range Interpretation Comments eGFR (test code = eGFR) 116 [place] [address]-10-23 09:39:00 Test Item Value Reference Range Interpretation Comments Magnesium Lvl (test code = Magnesium 1.9 1.8-2.4 Lvl) [address]10-23 09:39:00 Test Item Value Reference Range Interpretation Comments Phosphorus (test code = Phosphorus) 2.6 2.5-4.5 [place] [address]-10-23 09:39:00 Test Item Value Reference Range Interpretation Comments Segs (test code = Segs) 68.1 45.0-75.0 [address]10-23 09:39:00 Test Item Value Reference Range Interpretation Comments Lymphocytes (test code = Lymphocytes) 20.4 20.0-40.[address]10-23 09:39:00 Test Item Value Reference Range Interpretation Comments Monocytes (test code = Monocytes) 6.7 2.0-12.0 [place] [address]-10-23 09:39:00 Test Item Value Reference Range Interpretation Comments Eosinophils (test code = 4.1 See_Comment [A utomated message] The Eosinophils) system which ge nerated this result tra nsmitted reference range : <=4.0. The reference r kyle was not used to int erpret this result as normal/abnormal . [place] [address]-10-23 09:39:00 Test Item Value Reference Range Interpretation Comments Basophils (test code = 0.7 See_Comment [Aut omated message] The Basophils) system which ge nerated this result tra nsmitted reference range : <=1.0. The reference r kyle was not used to int erpret this result as normal/abnormal . [place] [address]-10-23 09:39:00 Test Item Value Reference Range Interpretation Comments Neutrophils # (test code = Neutrophils 6.7 1.5-8.1 #) [place] [address]-10-23 09:39:00 Test Item Value Reference Range Interpretation Comments Lymphocytes # (test code = Lymphocytes 2.0 1.0-5.5 #) [place] 587612-10-23 09:39:00 Test Item Value Reference Range Interpretation Comments Monocytes # (test code 0.7 See_Comment [Aut omated message] The = Monocytes #) system which generated this result tra nsmitted reference range : <=0.8. The reference r kyle was not used to int erpret this result as normal/abnormal . [place] [address]-10-23 09:39:00 Test Item Value Reference Range Interpretation Comments Eosinophils # (test code 0.4 See_Comment [A utomated message] The = Eosinophils #) system whic h generated this result tra nsmitted reference range : <=0.5. The reference r kyle was not used to int erpret this result as normal/abnormal . [place] [address]-10-23 09:39:00 Test Item Value Reference Range Interpretation Comments Basophils # (test code 0.1 See_Comment [Aut omated message] The = Basophils #) system which generated this result tra nsmitted reference range : <=0.2. The reference r kyle was not used to int erpret this result as normal/abnormal . [place] 587612-10-23 09:39:00 Test Item Value Reference Range Interpretation Comments WBC (test code = WBC) 9.9 3.7-10.4 [place] [address]-10-23 09:39:00 Test Item Value Reference Range Interpretation Comments RBC (test code = RBC) 3.05 4.20-5.40 [place] [address]-10-23 09:39:00 Test Item Value Reference Range Interpretation Comments Hgb (test code = Hgb) 8.5 12.0-16.0 [place] [address]-10-23 09:39:00 Test Item Value Reference Range Interpretation Comments Hct (test code = Hct) 25.6 36.0-48.0 [place] [address]-10-23 09:39:00 Test Item Value Reference Range Interpretation Comments MCV (test code = MCV) 83.9 80.0-98.0 [place] [address]-10-23 09:39:00 Test Item Value Reference Range Interpretation Comments MCH (test code = MCH) 27.9 pg 27.0-31.0 [place] [address]-10-23 09:39:00 Test Item Value Reference Range Interpretation Comments MCHC (test code = MCHC) 33.2 32.0-36.0 [place] 587612-10-23 09:39:00 Test Item Value Reference Range Interpretation Comments RDW (test code = RDW) 12.6 11.5-14.5 [place] [address]-10-23 09:39:00 Test Item Value Reference Range Interpretation Comments Platelet (test code = Platelet) 358 133-450 [place] 587612-10-23 09:39:00 Test Item Value Reference Range Interpretation Comments MPV (test code = MPV) 8.1 7.4-10.4 [facility] QGEEJUW3785-35-96 09:39:00 Test Item Value Reference Range Interpretation Comments Ca Ion WB (test code = Ca Ion WB) 1.11 1.05-1.25 [place] [address]-10-23 09:39:00 Test Item Value Reference Range Interpretation Comments Ca Ion at pH 7.4 WB (test code = Ca Ion 1.13 1.05-1.25 at pH 7.4 WB) [place] 604762-10-23 09:39:00 Test Item Value Reference Range Interpretation Comments Glucose Lvl (test code = Glucose Lvl) 150 70-99 [place] 604762-10-23 09:39:00 Test Item Value Reference Range Interpretation Comments BUN (test code = BUN) 9 7-22 [place] 604762-10-23 09:39:00 Test Item Value Reference Range Interpretation Comments Creatinine Lvl (test code = Creatinine 0.42 0.50-1.40 Lvl) [place] 604762-10-23 09:39:00 Test Item Value Reference Range Interpretation Comments Sodium Lvl (test code = Sodium Lvl) 134 135-145 [place] 604762-10-23 09:39:00 Test Item Value Reference Range Interpretation Comments Potassium Lvl (test code = Potassium 3.3 3.5-5.1 Lvl) [place] 604762-10-23 09:39:00 Test Item Value Reference Range Interpretation Comments Chloride Lvl (test code = Chloride Lvl) 102 95-109 [place] 604762-10-23 09:39:00 Test Item Value Reference Range Interpretation Comments CO2 (test code = CO2) 25 24-32 [place] 604762-10-23 09:39:00 Test Item Value Reference Range Interpretation Comments Calcium Lvl (test code = Calcium Lvl) 8.7 8.5-10.5 [place] 604762-10-23 09:39:00 Test Item Value Reference Range Interpretation Comments AGAP (test code = AGAP) 10.3 10.0-20.0 [place] 604762-10-23 09:39:00 Test Item Value Reference Range Interpretation Comments eGFR (test code = eGFR) 116 [place] 604762-10-23 09:39:00 Test Item Value Reference Range Interpretation Comments Magnesium Lvl (test code = Magnesium 1.9 1.8-2.4 Lvl) [place] 604762-10-23 09:39:00 Test Item Value Reference Range Interpretation Comments Phosphorus (test code = Phosphorus) 2.6 2.5-4.5 [place] [address]-10-23 09:39:00 Test Item Value Reference Range Interpretation Comments Segs (test code = Segs) 68.1 45.0-75.0 [place] [address]-10-23 09:39:00 Test Item Value Reference Range Interpretation Comments Lymphocytes (test code = Lymphocytes) 20.4 20.0-40.0 [place] [address]-10-23 09:39:00 Test Item Value Reference Range Interpretation Comments Monocytes (test code = Monocytes) 6.7 2.0-12.0 [place] [address]-10-23 09:39:00 Test Item Value Reference Range Interpretation Comments Eosinophils (test code = 4.1 See_Comment [A utomated message] The Eosinophils) system which ge nerated this result tra nsmitted reference range : <=4.0. The reference r kyle was not used to int erpret this result as normal/abnormal . [place] [address]-10-23 09:39:00 Test Item Value Reference Range Interpretation Comments Basophils (test code = 0.7 See_Comment [Aut omated message] The Basophils) system which ge nerated this result tra nsmitted reference range : <=1.0. The reference r kyle was not used to int erpret this result as normal/abnormal . [place] 587612-10-23 09:39:00 Test Item Value Reference Range Interpretation Comments Neutrophils # (test code = Neutrophils 6.7 1.5-8.1 #) [place] 587612-10-23 09:39:00 Test Item Value Reference Range Interpretation Comments Lymphocytes # (test code = Lymphocytes 2.0 1.0-5.5 #) [place] [address]-10-23 09:39:00 Test Item Value Reference Range Interpretation Comments Monocytes # (test code 0.7 See_Comment [Aut omated message] The = Monocytes #) system which generated this result tra nsmitted reference range : <=0.8. The reference r kyle was not used to int erpret this result as normal/abnormal . [place] [address]-10-23 09:39:00 Test Item Value Reference Range Interpretation Comments Eosinophils # (test code 0.4 See_Comment [A utomated message] The = Eosinophils #) system whic h generated this result tra nsmitted reference range : <=0.5. The reference r kyle was not used to int erpret this result as normal/abnormal . [place] [address]-10-23 09:39:00 Test Item Value Reference Range Interpretation Comments Basophils # (test code 0.1 See_Comment [Aut omated message] The = Basophils #) system which generated this result tra nsmitted reference range : <=0.2. The reference r kyle was not used to int erpret this result as normal/abnormal . [place] 587612-10-23 09:39:00 Test Item Value Reference Range Interpretation Comments WBC (test code = WBC) 9.9 3.7-10.4 [place] [address]-10-23 09:39:00 Test Item Value Reference Range Interpretation Comments RBC (test code = RBC) 3.05 4.20-5.40 [place] [address]-10-23 09:39:00 Test Item Value Reference Range Interpretation Comments Hgb (test code = Hgb) 8.5 12.0-16.0 [place] [address]-10-23 09:39:00 Test Item Value Reference Range Interpretation Comments Hct (test code = Hct) 25.6 36.0-48.0 [facility]oz[facility]th[facility]UVOUVHMPF8217-48-07 09:39:00 Test Item Value Reference Range Interpretation Comments MCV (test code = MCV) 83.9 80.0-98.0 [place] 587612-10-23 04:10:00 Test Item Value Reference Range Interpretation Comments Hgb (test code = Hgb) 9.1 12.0-16.0 [place] [address]-10-23 04:10:00 Test Item Value Reference Range Interpretation Comments Hct (test code = Hct) 27.1 36.0-48.0 [facility]AlcjgviKUWMFJLWQA4508-30-64 04:10:00 Test Item Value Reference Range Interpretation Comments Hgb (test code = Hgb) 9.1 12.0-16.0 [facility] HospitalClesidaOTZDNTOHBT4944-44-24 04:10:00 Test Item Value Reference Range Interpretation Comments Hct (test code = Hct) 27.1 36.0-48.0 [facility] HospitalUczlyuvVGJVHLHLES1297-57-09 04:10:00 Test Item Value Reference Range Interpretation Comments Hgb (test code = Hgb) 9.1 12.0-16.0 [facility] HospitalWvnhofzKEBPHSCGUY4562-30-96 04:10:00 Test Item Value Reference Range Interpretation Comments Hct (test code = Hct) 27.1 36.0-48.0 [facility] HospitalZgjwhzsECDCNFEJBO7268-01-67 04:10:00 Test Item Value Reference Range Interpretation Comments Hgb (test code = Hgb) 9.1 12.0-16.0 [facility] HospitalBddhbvbNXJBMWTRCC9863-18-09 04:10:00 Test Item Value Reference Range Interpretation Comments Hct (test code = Hct) 27.1 36.0-48.0 [facility] HospitalHdsqsxqPHBZTWNWRQ8363-80-93 04:10:00 Test Item Value Reference Range Interpretation Comments Hgb (test code = Hgb) 9.1 12.0-16.0 [place] [address]-10-23 04:10:00 Test Item Value Reference Range Interpretation Comments Hct (test code = Hct) 27.1 36.0-48.0 [place] 587612-10-23 04:10:00 Test Item Value Reference Range Interpretation Comments Hgb (test code = Hgb) 9.1 12.0-16.0 [place] [address]-10-23 04:10:00 Test Item Value Reference Range Interpretation Comments Hct (test code = Hct) 27.1 36.0-48.0 [place] 587612-10-23 04:10:00 Test Item Value Reference Range Interpretation Comments Hgb (test code = Hgb) 9.1 12.0-16.0 [place] [address]-10-23 04:10:00 Test Item Value Reference Range Interpretation Comments Hct (test code = Hct) 27.1 36.0-48.0 [place] 604762-10-22 08:53:00 Test Item Value Reference Range Interpretation Comments Glucose Lvl (test code = Glucose Lvl) 93 70-99 [place] 604762-10-22 08:53:00 Test Item Value Reference Range Interpretation Comments BUN (test code = BUN) 12 -22 [place] 604762-10-22 08:53:00 Test Item Value Reference Range Interpretation Comments Creatinine Lvl (test code = Creatinine 0.36 0.50-1.40 Lvl) [facility]2022-10-22 08:53:00 Test Item Value Reference Range Interpretation Comments Sodium Lvl (test code = Sodium Lvl) 137 135-145 [facility]2022-10-22 08:53:00 Test Item Value Reference Range Interpretation Comments Potassium Lvl (test code = Potassium 3.4 3.5-5.1 Lvl) [place] [address]762-10-22 08:53:00 Test Item Value Reference Range Interpretation Comments Chloride Lvl (test code = Chloride Lvl) 105 95-109 [place] 604762-10-22 08:53:00 Test Item Value Reference Range Interpretation Comments CO2 (test code = CO2) 22 24-32 [facility]2022-10-22 08:53:00 Test Item Value Reference Range Interpretation Comments Calcium Lvl (test code = Calcium Lvl) 8.4 8.5-10.5 [place] 604762-10-22 08:53:00 Test Item Value Reference Range Interpretation Comments AGAP (test code = AGAP) 13.4 10.0-20.0 [address]10-22 08:53:00 Test Item Value Reference Range Interpretation Comments eGFR (test code = eGFR) 120 [place] [address]-10-22 08:53:00 Test Item Value Reference Range Interpretation Comments Magnesium Lvl (test code = Magnesium 2.0 1.8-2.4 Lvl) [address]10-22 08:53:00 Test Item Value Reference Range Interpretation Comments Phosphorus (test code = Phosphorus) 2.9 2.5-4.5 [address]10-22 08:53:00 Test Item Value Reference Range Interpretation Comments Segs (test code = Segs) 65.7 45.0-75.0 [address]10-22 08:53:00 Test Item Value Reference Range Interpretation Comments Lymphocytes (test code = Lymphocytes) 25.5 20.0-40.0 [address]10-22 08:53:00 Test Item Value Reference Range Interpretation Comments Monocytes (test code = Monocytes) 5.3 2.0-12.0 [address]10-22 08:53:00 Test Item Value Reference Range Interpretation Comments Eosinophils (test code = 3.1 See_Comment [A utomated message] The Eosinophils) system which ge nerated this result tra nsmitted reference range : <=4.0. The reference r kyle was not used to int erpret this result as normal/abnormal . [place] [address]-10-22 08:53:00 Test Item Value Reference Range Interpretation Comments Basophils (test code = 0.4 See_Comment [Aut omated message] The Basophils) system which ge nerated this result tra nsmitted reference range : <=1.0. The reference r kyle was not used to int erpret this result as normal/abnormal . [place] [address]-10-22 08:53:00 Test Item Value Reference Range Interpretation Comments Neutrophils # (test code = Neutrophils 7.1 1.5-8.1 #) [address]10-22 08:53:00 Test Item Value Reference Range Interpretation Comments Lymphocytes # (test code = Lymphocytes 2.8 1.0-5.5 #) [address]10-22 08:53:00 Test Item Value Reference Range Interpretation Comments Monocytes # (test code 0.6 See_Comment [Aut omated message] The = Monocytes #) system which generated this result tra nsmitted reference range : <=0.8. The reference r kyle was not used to int erpret this result as normal/abnormal . [facility]UEMURXPOBZ9137[facility] 08:53:00 Test Item Value Reference Range Interpretation Comments Eosinophils # (test code 0.3 See_Comment [A utomated message] The = Eosinophils #) system whic h generated this result tra nsmitted reference range : <=0.5. The reference r kyle was not used to int erpret this result as normal/abnormal . [facility]FtcbwqwHJIWFIERXN7359-09-81 08:53:00 Test Item Value Reference Range Interpretation Comments WBC (test code = WBC) 10.8 3.7-10.4 [facility]ZlimdauBDHFVYOQKD1871-30-96 08:53:00 Test Item Value Reference Range Interpretation Comments RBC (test code = RBC) 2.80 4.20-5.40 [facility]VgugtwcQITXOXSRBK8655-78-11 08:53:00 Test Item Value Reference Range Interpretation Comments MCV (test code = MCV) 84.6 80.0-98.0 [facility]ZqebsyfNWCLDCFNOM6003-62-44 08:53:00 Test Item Value Reference Range Interpretation Comments MCH (test code = MCH) 28.1 pg 27.0-31.0 [facility] CenterNpwsmsoTXVOMYPVDI1278-13-98 08:53:00 Test Item Value Reference Range Interpretation Comments MCHC (test code = MCHC) 33.2 32.0-36.0 [facility]AbmranmHJCTMDWQWJ8869-12-21 08:53:00 Test Item Value Reference Range Interpretation Comments RDW (test code = RDW) 12.6 11.5-14.5 [facility] CenterMlygxkiCJUWIEUZLP3923-95-77 08:53:00 Test Item Value Reference Range Interpretation Comments Platelet (test code = Platelet) 330 133-450 [facility] CenterLdohwwoLXONXUMRBC0127-63-03 08:53:00 Test Item Value Reference Range Interpretation Comments MPV (test code = MPV) 8.1 7.4-10.4 [facility] CenterPARATHYROID GFCMFOI2630-09-04 08:53:00 Test Item Value Reference Range Interpretation Comments Ca Ion WB (test code = Ca Ion WB) 1.17 1.05-1.25 [facility] CenterPARATHYROID SZJIUMR6971-79-75 08:53:00 Test Item Value Reference Range Interpretation Comments Ca Ion at pH 7.4 WB (test code = Ca Ion 1.17 1.05-1.25 at pH 7.4 WB) [facility] CenterWzcdbsdDJZZCMOIFJ7762-76-72 08:53:00 Test Item Value Reference Range Interpretation Comments Vancomycin AUC (test code = Vancomycin 16.5 AUC) [facility]2022-10-22 08:53:00 Test Item Value Reference Range Interpretation Comments Glucose Lvl (test code = Glucose Lvl) 93 70-99 [place] [address]762-10-22 08:53:00 Test Item Value Reference Range Interpretation Comments Glucose Lvl (test code = Glucose Lvl) 93 70-99 [facility]2022-10-22 08:53:00 Test Item Value Reference Range Interpretation Comments BUN (test code = BUN) 12 03-24 [facility]2022-10-22 08:53:00 Test Item Value Reference Range Interpretation Comments Creatinine Lvl (test code = Creatinine 0.36 0.50-1.40 Lvl) [facility]2022-10-22 08:53:00 Test Item Value Reference Range Interpretation Comments Sodium Lvl (test code = Sodium Lvl) 137 135-145 [facility]2022-10-22 08:53:00 Test Item Value Reference Range Interpretation Comments Potassium Lvl (test code = Potassium 3.4 3.5-5.1 Lvl) [facility]2022-10-22 08:53:00 Test Item Value Reference Range Interpretation Comments Chloride Lvl (test code = Chloride Lvl) 105 95-109 [place] 604762-10-22 08:53:00 Test Item Value Reference Range Interpretation Comments CO2 (test code = CO2) 22 24-32 [place] 604762-10-22 08:53:00 Test Item Value Reference Range Interpretation Comments Calcium Lvl (test code = Calcium Lvl) 8.4 8.5-10.5 [facility]2022-10-22 08:53:00 Test Item Value Reference Range Interpretation Comments AGAP (test code = AGAP) 13.4 10.0-20.0 [place] [address]-10-22 08:53:00 Test Item Value Reference Range Interpretation Comments eGFR (test code = eGFR) 120 [place] [address]762-10-22 08:53:00 Test Item Value Reference Range Interpretation Comments Magnesium Lvl (test code = Magnesium 2.0 1.8-2.4 Lvl) [place] [address]762-10-22 08:53:00 Test Item Value Reference Range Interpretation Comments BUN (test code = BUN) 12 7-22 [place] [address]-10-22 08:53:00 Test Item Value Reference Range Interpretation Comments Phosphorus (test code = Phosphorus) 2.9 2.5-4.5 [place] [address]-10-22 08:53:00 Test Item Value Reference Range Interpretation Comments Segs (test code = Segs) 65.7 45.0-75.0 [place] [address]-10-22 08:53:00 Test Item Value Reference Range Interpretation Comments Lymphocytes (test code = Lymphocytes) 25.5 20.0-40.0 [place] [address]-10-22 08:53:00 Test Item Value Reference Range Interpretation Comments Monocytes (test code = Monocytes) 5.3 2.0-12.0 [place] [address]-10-22 08:53:00 Test Item Value Reference Range Interpretation Comments Eosinophils (test code = 3.1 See_Comment [A utomated message] The Eosinophils) system which ge nerated this result tra nsmitted reference range : <=4.0. The reference r kyle was not used to int erpret this result as normal/abnormal . [place] [address]-10-22 08:53:00 Test Item Value Reference Range Interpretation Comments Basophils (test code = 0.4 See_Comment [Aut omated message] The Basophils) system which ge nerated this result tra nsmitted reference range : <=1.0. The reference r kyle was not used to int erpret this result as normal/abnormal . [place] [address]-10-22 08:53:00 Test Item Value Reference Range Interpretation Comments Neutrophils # (test code = Neutrophils 7.1 1.5-8.1 #) [place] [address]-10-22 08:53:00 Test Item Value Reference Range Interpretation Comments Lymphocytes # (test code = Lymphocytes 2.8 1.0-5.5 #) [place] 587612-10-22 08:53:00 Test Item Value Reference Range Interpretation Comments Monocytes # (test code 0.6 See_Comment [Aut omated message] The = Monocytes #) system which generated this result tra nsmitted reference range : <=0.8. The reference r kyle was not used to int erpret this result as normal/abnormal . [place] 587612-10-22 08:53:00 Test Item Value Reference Range Interpretation Comments Eosinophils # (test code 0.3 See_Comment [A utomated message] The = Eosinophils #) system whic h generated this result tra nsmitted reference range : <=0.5. The reference r kyle was not used to int erpret this result as normal/abnormal . [facility]2022-10-22 08:53:00 Test Item Value Reference Range Interpretation Comments Creatinine Lvl (test code = Creatinine 0.36 0.50-1.40 Lvl) [place] 587612-10-22 08:53:00 Test Item Value Reference Range Interpretation Comments WBC (test code = WBC) 10.8 3.7-10.4 [place] [address]-10-22 08:53:00 Test Item Value Reference Range Interpretation Comments RBC (test code = RBC) 2.80 4.20-5.40 [place] 587612-10-22 08:53:00 Test Item Value Reference Range Interpretation Comments MCV (test code = MCV) 84.6 80.0-98.0 [place] [address]-10-22 08:53:00 Test Item Value Reference Range Interpretation Comments MCH (test code = MCH) 28.1 pg 27.0-31.0 [place] [address]-10-22 08:53:00 Test Item Value Reference Range Interpretation Comments MCHC (test code = MCHC) 33.2 32.0-36.0 [place] [address]-10-22 08:53:00 Test Item Value Reference Range Interpretation Comments RDW (test code = RDW) 12.6 11.5-14.5 [place] [address]-10-22 08:53:00 Test Item Value Reference Range Interpretation Comments Platelet (test code = Platelet) 330 133-450 [facility] CenterCtoqfsmEMKHDWSNST6970-06-35 08:53:00 Test Item Value Reference Range Interpretation Comments MPV (test code = MPV) 8.1 7.4-10.4 [facility]RO[facility] UHFNULD4160-86-74 08:53:00 Test Item Value Reference Range Interpretation Comments Ca Ion WB (test code = Ca Ion WB) 1.17 1.05-1.25 [facility] HospitalROID AUZJFPW7871-86-77 08:53:00 Test Item Value Reference Range Interpretation Comments Ca Ion at pH 7.4 WB (test code = Ca Ion 1.17 1.05-1.25 at pH 7.4 WB) [facility]2022-10-22 08:53:00 Test Item Value Reference Range Interpretation Comments Sodium Lvl (test code = Sodium Lvl) 137 135-145 [facility] CenterVoecrlcPHXVYHBTWM3305-64-88 08:53:00 Test Item Value Reference Range Interpretation Comments Vancomycin AUC (test code = Vancomycin 16.5 AUC) [facility]2022-10-22 08:53:00 Test Item Value Reference Range Interpretation Comments Potassium Lvl (test code = Potassium 3.4 3.5-5.1 Lvl) [facility]2022-10-22 08:53:00 Test Item Value Reference Range Interpretation Comments Chloride Lvl (test code = Chloride Lvl) 105 95-109 [facility]2022-10-22 08:53:00 Test Item Value Reference Range Interpretation Comments CO2 (test code = CO2) 22 24-32 [place] 604762-10-22 08:53:00 Test Item Value Reference Range Interpretation Comments Calcium Lvl (test code = Calcium Lvl) 8.4 8.5-10.5 [facility]2022-10-22 08:53:00 Test Item Value Reference Range Interpretation Comments AGAP (test code = AGAP) 13.4 10.0-20.0 [place] 604762-10-22 08:53:00 Test Item Value Reference Range Interpretation Comments eGFR (test code = eGFR) 120 [place] 604762-10-22 08:53:00 Test Item Value Reference Range Interpretation Comments Magnesium Lvl (test code = Magnesium 2.0 1.8-2.4 Lvl) [facility]2022-10-22 08:53:00 Test Item Value Reference Range Interpretation Comments Phosphorus (test code = Phosphorus) 2.9 2.5-4.5 [place] 587612-10-22 08:53:00 Test Item Value Reference Range Interpretation Comments Segs (test code = Segs) 65.7 45.0-75.0 [place] 587612-10-22 08:53:00 Test Item Value Reference Range Interpretation Comments Lymphocytes (test code = Lymphocytes) 25.5 20.0-40.0 [place] [address]-10-22 08:53:00 Test Item Value Reference Range Interpretation Comments Monocytes (test code = Monocytes) 5.3 2.0-12.0 [place] 587612-10-22 08:53:00 Test Item Value Reference Range Interpretation Comments Eosinophils (test code = 3.1 See_Comment [A utomated message] The Eosinophils) system which ge nerated this result tra nsmitted reference range : <=4.0. The reference r kyle was not used to int erpret this result as normal/abnormal . [facility] HospitalBzyttbyNOKQGJTSBB2292-90-30 08:53:00 Test Item Value Reference Range Interpretation Comments Basophils (test code = 0.4 See_Comment [Aut omated message] The Basophils) system which ge nerated this result tra nsmitted reference range : <=1.0. The reference r kyle was not used to int erpret this result as normal/abnormal . [facility] HospitalGlfforeVBHNSYWFUR2184-50-04 08:53:00 Test Item Value Reference Range Interpretation Comments Neutrophils # (test code = Neutrophils 7.1 1.5-8.1 #) [place] [address]-10-22 08:53:00 Test Item Value Reference Range Interpretation Comments Lymphocytes # (test code = Lymphocytes 2.8 1.0-5.5 #) [place] [address]-10-22 08:53:00 Test Item Value Reference Range Interpretation Comments Monocytes # (test code 0.6 See_Comment [Aut omated message] The = Monocytes #) system which generated this result tra nsmitted reference range : <=0.8. The reference r kyle was not used to int erpret this result as normal/abnormal . [place] [address]-10-22 08:53:00 Test Item Value Reference Range Interpretation Comments Eosinophils # (test code 0.3 See_Comment [A utomated message] The = Eosinophils #) system whic h generated this result tra nsmitted reference range : <=0.5. The reference r kyle was not used to int erpret this result as normal/abnormal . [place] 587612-10-22 08:53:00 Test Item Value Reference Range Interpretation Comments WBC (test code = WBC) 10.8 3.7-10.4 [place] [address]-10-22 08:53:00 Test Item Value Reference Range Interpretation Comments RBC (test code = RBC) 2.80 4.20-5.40 [place] 587612-10-22 08:53:00 Test Item Value Reference Range Interpretation Comments MCV (test code = MCV) 84.6 80.0-98.0 [place] 587612-10-22 08:53:00 Test Item Value Reference Range Interpretation Comments MCH (test code = MCH) 28.1 pg 27.0-31.0 [place] 587612-10-22 08:53:00 Test Item Value Reference Range Interpretation Comments MCHC (test code = MCHC) 33.2 32.0-36.0 [place] 587612-10-22 08:53:00 Test Item Value Reference Range Interpretation Comments RDW (test code = RDW) 12.6 11.5-14.5 [place] 587612-10-22 08:53:00 Test Item Value Reference Range Interpretation Comments Platelet (test code = Platelet) 330 133-450 [facility] HospitalFhsghaxZCKWKFHRYL6856-02-18 08:53:00 Test Item Value Reference Range Interpretation Comments MPV (test code = MPV) 8.1 7.4-10.4 [facility] CenterPARATHYROID KTSNVYJ4090-13-29 08:53:00 Test Item Value Reference Range Interpretation Comments Ca Ion WB (test code = Ca Ion WB) 1.17 1.05-1.25 [facility] CenterPARATHYROID JKUORRD8023-66-11 08:53:00 Test Item Value Reference Range Interpretation Comments Ca Ion at pH 7.4 WB (test code = Ca Ion 1.17 1.05-1.25 at pH 7.4 WB) [facility] CenterNomhuzuXXPMBLMKWC9493-91-18 08:53:00 Test Item Value Reference Range Interpretation Comments Vancomycin AUC (test code = Vancomycin 16.5 AUC) [place] [address]762-10-22 08:53:00 Test Item Value Reference Range Interpretation Comments Glucose Lvl (test code = Glucose Lvl) 93 70-99 [place] 604762-10-22 08:53:00 Test Item Value Reference Range Interpretation Comments BUN (test code = BUN) 12 7-22 [place] 604762-10-22 08:53:00 Test Item Value Reference Range Interpretation Comments Creatinine Lvl (test code = Creatinine 0.36 0.50-1.40 Lvl) [place] 604762-10-22 08:53:00 Test Item Value Reference Range Interpretation Comments Sodium Lvl (test code = Sodium Lvl) 137 135-145 [place] 604762-10-22 08:53:00 Test Item Value Reference Range Interpretation Comments Potassium Lvl (test code = Potassium 3.4 3.5-5.1 Lvl) [facility]2022-10-22 08:53:00 Test Item Value Reference Range Interpretation Comments Chloride Lvl (test code = Chloride Lvl) 105 95-109 [facility]2022-10-22 08:53:00 Test Item Value Reference Range Interpretation Comments CO2 (test code = CO2) 22 24-32 [place] 604762-10-22 08:53:00 Test Item Value Reference Range Interpretation Comments Calcium Lvl (test code = Calcium Lvl) 8.4 8.5-10.5 [place] 604762-10-22 08:53:00 Test Item Value Reference Range Interpretation Comments AGAP (test code = AGAP) 13.4 10.0-20.0 [place] 604762-10-22 08:53:00 Test Item Value Reference Range Interpretation Comments eGFR (test code = eGFR) 120 [place] 604762-10-22 08:53:00 Test Item Value Reference Range Interpretation Comments Magnesium Lvl (test code = Magnesium 2.0 1.8-2.4 Lvl) [place] 604762-10-22 08:53:00 Test Item Value Reference Range Interpretation Comments Phosphorus (test code = Phosphorus) 2.9 2.5-4.5 [place] 587612-10-22 08:53:00 Test Item Value Reference Range Interpretation Comments Segs (test code = Segs) 65.7 45.0-75.0 [place] 587612-10-22 08:53:00 Test Item Value Reference Range Interpretation Comments Lymphocytes (test code = Lymphocytes) 25.5 20.0-40.0 [place] [address]-10-22 08:53:00 Test Item Value Reference Range Interpretation Comments Monocytes (test code = Monocytes) 5.3 2.0-12.0 [place] [address]-10-22 08:53:00 Test Item Value Reference Range Interpretation Comments Eosinophils (test code = 3.1 See_Comment [A utomated message] The Eosinophils) system which ge nerated this result tra nsmitted reference range : <=4.0. The reference r kyle was not used to int erpret this result as normal/abnormal . [place] [address]-10-22 08:53:00 Test Item Value Reference Range Interpretation Comments Basophils (test code = 0.4 See_Comment [Aut omated message] The Basophils) system which ge nerated this result tra nsmitted reference range : <=1.0. The reference r kyle was not used to int erpret this result as normal/abnormal . [place] 587612-10-22 08:53:00 Test Item Value Reference Range Interpretation Comments Neutrophils # (test code = Neutrophils 7.1 1.5-8.1 #) [place] 587612-10-22 08:53:00 Test Item Value Reference Range Interpretation Comments Lymphocytes # (test code = Lymphocytes 2.8 1.0-5.5 #) [place] [address]-10-22 08:53:00 Test Item Value Reference Range Interpretation Comments Monocytes # (test code 0.6 See_Comment [Aut omated message] The = Monocytes #) system which generated this result tra nsmitted reference range : <=0.8. The reference r kyle was not used to int erpret this result as normal/abnormal . [place] [address]-10-22 08:53:00 Test Item Value Reference Range Interpretation Comments Eosinophils # (test code 0.3 See_Comment [A utomated message] The = Eosinophils #) system whic h generated this result tra nsmitted reference range : <=0.5. The reference r kyle was not used to int erpret this result as normal/abnormal . [facility]JJSFRHUN4536[facility]-38 08:53:00 Test Item Value Reference Range Interpretation Comments WBC (test code = WBC) 10.8 3.7-10.4 [facility]JhqoqfhBXCQUTFHMC6694-16-05 08:53:00 Test Item Value Reference Range Interpretation Comments RBC (test code = RBC) 2.80 4.20-5.40 [facility] HospitalTncxsgrANEFMUJUJO2079-47-78 08:53:00 Test Item Value Reference Range Interpretation Comments MCV (test code = MCV) 84.6 80.0-98.0 [facility] HospitalRfnurksEZQZKCCMDR9031-74-45 08:53:00 Test Item Value Reference Range Interpretation Comments MCH (test code = MCH) 28.1 pg 27.0-31.0 [facility] HospitalYffzqxhVQHGJBSSIE1328-69-04 08:53:00 Test Item Value Reference Range Interpretation Comments MCHC (test code = MCHC) 33.2 32.0-36.0 [facility] HospitalDhbeevfYMODKTTWLJ5109-90-19 08:53:00 Test Item Value Reference Range Interpretation Comments RDW (test code = RDW) 12.6 11.5-14.5 [facility] HospitalGbuehbhAAZNWPHNCW0913-12-09 08:53:00 Test Item Value Reference Range Interpretation Comments Platelet (test code = Platelet) 330 133-450 [facility] HospitalCqvcvcdCOWTIXOSNT5281-38-38 08:53:00 Test Item Value Reference Range Interpretation Comments MPV (test code = MPV) 8.1 7.4-10.4 [facility] CenterPARATHYROID YLPGCVA2472-66-55 08:53:00 Test Item Value Reference Range Interpretation Comments Ca Ion WB (test code = Ca Ion WB) 1.17 1.05-1.25 [facility] CenterPARATHYROID PLFAGGD6836-13-49 08:53:00 Test Item Value Reference Range Interpretation Comments Ca Ion at pH 7.4 WB (test code = Ca Ion 1.17 1.05-1.25 at pH 7.4 WB) [facility] CenterRpfuvflXTNEMRUNDU6615-09-75 08:53:00 Test Item Value Reference Range Interpretation Comments Vancomycin AUC (test code = Vancomycin 16.5 AUC) [facility]2022-10-22 08:53:00 Test Item Value Reference Range Interpretation Comments Glucose Lvl (test code = Glucose Lvl) 93 70-99 [place] 604762-10-22 08:53:00 Test Item Value Reference Range Interpretation Comments BUN (test code = BUN) 12 7-22 [place] 604762-10-22 08:53:00 Test Item Value Reference Range Interpretation Comments Creatinine Lvl (test code = Creatinine 0.36 0.50-1.40 Lvl) [facility]2022-10-22 08:53:00 Test Item Value Reference Range Interpretation Comments Sodium Lvl (test code = Sodium Lvl) 137 135-145 [place] 604762-10-22 08:53:00 Test Item Value Reference Range Interpretation Comments Potassium Lvl (test code = Potassium 3.4 3.5-5.1 Lvl) [place] 604762-10-22 08:53:00 Test Item Value Reference Range Interpretation Comments Chloride Lvl (test code = Chloride Lvl) 105 95-109 [place] 604762-10-22 08:53:00 Test Item Value Reference Range Interpretation Comments CO2 (test code = CO2) 22 24-32 [place] 604762-10-22 08:53:00 Test Item Value Reference Range Interpretation Comments Calcium Lvl (test code = Calcium Lvl) 8.4 8.5-10.5 [facility]2022-10-22 08:53:00 Test Item Value Reference Range Interpretation Comments AGAP (test code = AGAP) 13.4 10.0-20.0 [place] 604762-10-22 08:53:00 Test Item Value Reference Range Interpretation Comments eGFR (test code = eGFR) 120 [facility]2022-10-22 08:53:00 Test Item Value Reference Range Interpretation Comments Magnesium Lvl (test code = Magnesium 2.0 1.8-2.4 Lvl) [facility]2022-10-22 08:53:00 Test Item Value Reference Range Interpretation Comments Phosphorus (test code = Phosphorus) 2.9 2.5-4.5 [facility]ertcyuBACYDGGJVN2878-63-28 08:53:00 Test Item Value Reference Range Interpretation Comments Segs (test code = Segs) 65.7 45.0-75.0 [place] [address]-10-22 08:53:00 Test Item Value Reference Range Interpretation Comments Lymphocytes (test code = Lymphocytes) 25.5 20.0-40.0 [place] [address]-10-22 08:53:00 Test Item Value Reference Range Interpretation Comments Monocytes (test code = Monocytes) 5.3 2.0-12.0 [place] [address]-10-22 08:53:00 Test Item Value Reference Range Interpretation Comments Eosinophils (test code = 3.1 See_Comment [A utomated message] The Eosinophils) system which ge nerated this result tra nsmitted reference range : <=4.0. The reference r kyle was not used to int erpret this result as normal/abnormal . [place] [address]-10-22 08:53:00 Test Item Value Reference Range Interpretation Comments Basophils (test code = 0.4 See_Comment [Aut omated message] The Basophils) system which ge nerated this result tra nsmitted reference range : <=1.0. The reference r kyle was not used to int erpret this result as normal/abnormal . [place] 587612-10-22 08:53:00 Test Item Value Reference Range Interpretation Comments Neutrophils # (test code = Neutrophils 7.1 1.5-8.1 #) [place] [address]-10-22 08:53:00 Test Item Value Reference Range Interpretation Comments Lymphocytes # (test code = Lymphocytes 2.8 1.0-5.5 #) [place] [address]-10-22 08:53:00 Test Item Value Reference Range Interpretation Comments Monocytes # (test code 0.6 See_Comment [Aut omated message] The = Monocytes #) system which generated this result tra nsmitted reference range : <=0.8. The reference r kyle was not used to int erpret this result as normal/abnormal . [place] [address]-10-22 08:53:00 Test Item Value Reference Range Interpretation Comments Eosinophils # (test code 0.3 See_Comment [A utomated message] The = Eosinophils #) system whic h generated this result tra nsmitted reference range : <=0.5. The reference r kyle was not used to int erpret this result as normal/abnormal . [facility] CenterKsmlgstJIHJZRPSFB8229-22-98 08:53:00 Test Item Value Reference Range Interpretation Comments WBC (test code = WBC) 10.8 3.7-10.4 [facility] CenterQbzmgoiGDEFLIYSWP6340-89-31 08:53:00 Test Item Value Reference Range Interpretation Comments RBC (test code = RBC) 2.80 4.20-5.40 [facility]IcryfppPOVKZUNFCM7462-67-61 08:53:00 Test Item Value Reference Range Interpretation Comments MCV (test code = MCV) 84.6 80.0-98.0 [facility] CenterWqnorvsATBAHSMMQQ7916-79-83 08:53:00 Test Item Value Reference Range Interpretation Comments MCH (test code = MCH) 28.1 pg 27.0-31.0 [facility] CenterUpczjsfUSOZGJVNES5761-68-49 08:53:00 Test Item Value Reference Range Interpretation Comments MCHC (test code = MCHC) 33.2 32.0-36.0 [facility] CenterIxneepyQQNCHXAKWH7328-45-14 08:53:00 Test Item Value Reference Range Interpretation Comments RDW (test code = RDW) 12.6 11.5-14.5 [facility] CenterEjavxfaBYPOXAGIHJ0429-91-48 08:53:00 Test Item Value Reference Range Interpretation Comments Platelet (test code = Platelet) 330 133-450 [facility] CenterSgyxsozGHDYLJJZWZ8317-53-80 08:53:00 Test Item Value Reference Range Interpretation Comments MPV (test code = MPV) 8.1 7.4-10.4 [facility]annPARATHYROID JRYXWIX1093-35-21 08:53:00 Test Item Value Reference Range Interpretation Comments Ca Ion WB (test code = Ca Ion WB) 1.17 1.05-1.25 [facility] CenterannPARATHYROID TUZNFST5195-75-70 08:53:00 Test Item Value Reference Range Interpretation Comments Ca Ion at pH 7.4 WB (test code = Ca Ion 1.17 1.05-1.25 at pH 7.4 WB) [facility] CenterCxvfqzuCOSFXYCOQQ3276-15-83 08:53:00 Test Item Value Reference Range Interpretation Comments Vancomycin AUC (test code = Vancomycin 16.5 AUC) [facility] CenterCHEM IDEVZ0723-26-49 08:53:00 Test Item Value Reference Range Interpretation Comments Glucose Lvl (test code = Glucose Lvl) 93 70-99 [place] 604762-10-22 08:53:00 Test Item Value Reference Range Interpretation Comments BUN (test code = BUN) 12 7-22 [place] 604762-10-22 08:53:00 Test Item Value Reference Range Interpretation Comments Creatinine Lvl (test code = Creatinine 0.36 0.50-1.40 Lvl) [place] 604762-10-22 08:53:00 Test Item Value Reference Range Interpretation Comments Sodium Lvl (test code = Sodium Lvl) 137 135-145 [place] 604762-10-22 08:53:00 Test Item Value Reference Range Interpretation Comments Potassium Lvl (test code = Potassium 3.4 3.5-5.1 Lvl) [facility]2022-10-22 08:53:00 Test Item Value Reference Range Interpretation Comments Chloride Lvl (test code = Chloride Lvl) 105 95-109 [place] 604762-10-22 08:53:00 Test Item Value Reference Range Interpretation Comments CO2 (test code = CO2) 22 24-32 [place] 604762-10-22 08:53:00 Test Item Value Reference Range Interpretation Comments Calcium Lvl (test code = Calcium Lvl) 8.4 8.5-10.5 [place] 604762-10-22 08:53:00 Test Item Value Reference Range Interpretation Comments AGAP (test code = AGAP) 13.4 10.0-20.0 [place] 604762-10-22 08:53:00 Test Item Value Reference Range Interpretation Comments eGFR (test code = eGFR) 120 [place] 604762-10-22 08:53:00 Test Item Value Reference Range Interpretation Comments Magnesium Lvl (test code = Magnesium 2.0 1.8-2.4 Lvl) [facility]2022-10-22 08:53:00 Test Item Value Reference Range Interpretation Comments Phosphorus (test code = Phosphorus) 2.9 2.5-4.5 [place] 587612-10-22 08:53:00 Test Item Value Reference Range Interpretation Comments Segs (test code = Segs) 65.7 45.0-75.0 [place] 587612-10-22 08:53:00 Test Item Value Reference Range Interpretation Comments Lymphocytes (test code = Lymphocytes) 25.5 20.0-40.0 [place] 587612-10-22 08:53:00 Test Item Value Reference Range Interpretation Comments Monocytes (test code = Monocytes) 5.3 2.0-12.0 [place] 587612-10-22 08:53:00 Test Item Value Reference Range Interpretation Comments Eosinophils (test code = 3.1 See_Comment [A utomated message] The Eosinophils) system which ge nerated this result tra nsmitted reference range : <=4.0. The reference r kyle was not used to int erpret this result as normal/abnormal . [place] 587612-10-22 08:53:00 Test Item Value Reference Range Interpretation Comments Basophils (test code = 0.4 See_Comment [Aut omated message] The Basophils) system which ge nerated this result tra nsmitted reference range : <=1.0. The reference r kyle was not used to int erpret this result as normal/abnormal . [facility] HospitalCgkyqqpGSAEHMZKVF5725-25-84 08:53:00 Test Item Value Reference Range Interpretation Comments Neutrophils # (test code = Neutrophils 7.1 1.5-8.1 #) [place] 587612-10-22 08:53:00 Test Item Value Reference Range Interpretation Comments Lymphocytes # (test code = Lymphocytes 2.8 1.0-5.5 #) [place] 587612-10-22 08:53:00 Test Item Value Reference Range Interpretation Comments Monocytes # (test code 0.6 See_Comment [Aut omated message] The = Monocytes #) system which generated this result tra nsmitted reference range : <=0.8. The reference r kyle was not used to int erpret this result as normal/abnormal . [place] 587612-10-22 08:53:00 Test Item Value Reference Range Interpretation Comments Eosinophils # (test code 0.3 See_Comment [A utomated message] The = Eosinophils #) system whic h generated this result tra nsmitted reference range : <=0.5. The reference r kyle was not used to int erpret this result as normal/abnormal . [place] 587612-10-22 08:53:00 Test Item Value Reference Range Interpretation Comments WBC (test code = WBC) 10.8 3.7-10.4 [place] [address]-10-22 08:53:00 Test Item Value Reference Range Interpretation Comments RBC (test code = RBC) 2.80 4.20-5.40 [place] 587612-10-22 08:53:00 Test Item Value Reference Range Interpretation Comments MCV (test code = MCV) 84.6 80.0-98.0 [place] 587612-10-22 08:53:00 Test Item Value Reference Range Interpretation Comments MCH (test code = MCH) 28.1 pg 27.0-31.0 [place] 587612-10-22 08:53:00 Test Item Value Reference Range Interpretation Comments MCHC (test code = MCHC) 33.2 32.0-36.0 [place] 587612-10-22 08:53:00 Test Item Value Reference Range Interpretation Comments RDW (test code = RDW) 12.6 11.5-14.5 [place] 587612-10-22 08:53:00 Test Item Value Reference Range Interpretation Comments Platelet (test code = Platelet) 330 133-450 [facility] HospitalDvhnwtfIBHRCINZRJ1853-37-45 08:53:00 Test Item Value Reference Range Interpretation Comments MPV (test code = MPV) 8.1 7.4-10.4 [facility] CenterPARATHYROID ZPRELGP4490-13-68 08:53:00 Test Item Value Reference Range Interpretation Comments Ca Ion WB (test code = Ca Ion WB) 1.17 1.05-1.25 [facility]ROID YEIPZFA0804-26-79 08:53:00 Test Item Value Reference Range Interpretation Comments Ca Ion at pH 7.4 WB (test code = Ca Ion 1.17 1.05-1.25 at pH 7.4 WB) [facility] CenterXgqxrnaBIVPETBPPK7130-96-38 08:53:00 Test Item Value Reference Range Interpretation Comments Vancomycin AUC (test code = Vancomycin 16.5 AUC) [facility]2022-10-22 08:53:00 Test Item Value Reference Range Interpretation Comments Glucose Lvl (test code = Glucose Lvl) 93 70-99 [place] 604762-10-22 08:53:00 Test Item Value Reference Range Interpretation Comments BUN (test code = BUN) 12 7-22 [place] 604762-10-22 08:53:00 Test Item Value Reference Range Interpretation Comments Creatinine Lvl (test code = Creatinine 0.36 0.50-1.40 Lvl) [place] 604762-10-22 08:53:00 Test Item Value Reference Range Interpretation Comments Sodium Lvl (test code = Sodium Lvl) 137 135-145 [place] 604762-10-22 08:53:00 Test Item Value Reference Range Interpretation Comments Potassium Lvl (test code = Potassium 3.4 3.5-5.1 Lvl) [place] 604762-10-22 08:53:00 Test Item Value Reference Range Interpretation Comments Chloride Lvl (test code = Chloride Lvl) 105 95-109 [place] 604762-10-22 08:53:00 Test Item Value Reference Range Interpretation Comments CO2 (test code = CO2) 22 24-32 [place] 604762-10-22 08:53:00 Test Item Value Reference Range Interpretation Comments Calcium Lvl (test code = Calcium Lvl) 8.4 8.5-10.5 [place] 604762-10-22 08:53:00 Test Item Value Reference Range Interpretation Comments AGAP (test code = AGAP) 13.4 10.0-20.0 [place] 604762-10-22 08:53:00 Test Item Value Reference Range Interpretation Comments eGFR (test code = eGFR) 120 [place] 604762-10-22 08:53:00 Test Item Value Reference Range Interpretation Comments Magnesium Lvl (test code = Magnesium 2.0 1.8-2.4 Lvl) [place] 604762-10-22 08:53:00 Test Item Value Reference Range Interpretation Comments Phosphorus (test code = Phosphorus) 2.9 2.5-4.5 [place] 587612-10-22 08:53:00 Test Item Value Reference Range Interpretation Comments Segs (test code = Segs) 65.7 45.0-75.0 [place] 587612-10-22 08:53:00 Test Item Value Reference Range Interpretation Comments Lymphocytes (test code = Lymphocytes) 25.5 20.0-40.0 [place] 587612-10-22 08:53:00 Test Item Value Reference Range Interpretation Comments Monocytes (test code = Monocytes) 5.3 2.0-12.0 [place] [address]-10-22 08:53:00 Test Item Value Reference Range Interpretation Comments Eosinophils (test code = 3.1 See_Comment [A utomated message] The Eosinophils) system which ge nerated this result tra nsmitted reference range : <=4.0. The reference r kyle was not used to int erpret this result as normal/abnormal . [place] [address]-10-22 08:53:00 Test Item Value Reference Range Interpretation Comments Basophils (test code = 0.4 See_Comment [Aut omated message] The Basophils) system which ge nerated this result tra nsmitted reference range : <=1.0. The reference r kyle was not used to int erpret this result as normal/abnormal . [place] [address]-10-22 08:53:00 Test Item Value Reference Range Interpretation Comments Neutrophils # (test code = Neutrophils 7.1 1.5-8.1 #) [address]10-22 08:53:00 Test Item Value Reference Range Interpretation Comments Lymphocytes # (test code = Lymphocytes 2.8 1.0-5.5 #) [place] [address]-10-22 08:53:00 Test Item Value Reference Range Interpretation Comments Monocytes # (test code 0.6 See_Comment [Aut omated message] The = Monocytes #) system which generated this result tra nsmitted reference range : <=0.8. The reference r kyle was not used to int erpret this result as normal/abnormal . [place] [address]-10-22 08:53:00 Test Item Value Reference Range Interpretation Comments Eosinophils # (test code 0.3 See_Comment [A utomated message] The = Eosinophils #) system whic h generated this result tra nsmitted reference range : <=0.5. The reference r kyle was not used to int erpret this result as normal/abnormal . [place] [address]-10-22 08:53:00 Test Item Value Reference Range Interpretation Comments WBC (test code = WBC) 10.8 3.7-10.4 [place] [address]-10-22 08:53:00 Test Item Value Reference Range Interpretation Comments RBC (test code = RBC) 2.80 4.20-5.40 [facility] CenterVoasnngJKRHNLRSFJ4710-89-10 08:53:00 Test Item Value Reference Range Interpretation Comments MCV (test code = MCV) 84.6 80.0-98.0 [facility]WsdodchJXSKRMHKJP3246-09-80 08:53:00 Test Item Value Reference Range Interpretation Comments MCH (test code = MCH) 28.1 pg 27.0-31.0 [facility] CenterAakxiasKVYZMWWBXQ6233-62-54 08:53:00 Test Item Value Reference Range Interpretation Comments MCHC (test code = MCHC) 33.2 32.0-36.0 [facility] CenterZhkzxguFTNHNUMKVU3685-67-15 08:53:00 Test Item Value Reference Range Interpretation Comments RDW (test code = RDW) 12.6 11.5-14.5 [facility] CenterFihfnvkNAUBVBEQTD1211-50-25 08:53:00 Test Item Value Reference Range Interpretation Comments Platelet (test code = Platelet) 330 133-450 [facility] CenterBcbmyakYWFXDSXUPO9163-92-67 08:53:00 Test Item Value Reference Range Interpretation Comments MPV (test code = MPV) 8.1 7.4-10.4 [facility] CenterPARATHYROID VTXJANA6943-45-30 08:53:00 Test Item Value Reference Range Interpretation Comments Ca Ion WB (test code = Ca Ion WB) 1.17 1.05-1.25 [facility] CenterPARWEILL [facility] MED[facility] CENTERROID SPRTCOW5122-37-16 08:53:00 Test Item Value Reference Range Interpretation Comments Ca Ion at pH 7.4 WB (test code = Ca Ion 1.17 1.05-1.25 at pH 7.4 WB) [facility] CenterIbachetMDGMDHYHGK7523-30-31 08:53:00 Test Item Value Reference Range Interpretation Comments Vancomycin AUC (test code = Vancomycin 16.5 AUC) [facility]: [id number] 04:19:00 Test Item Value Reference Range Interpretation Comments Culture: Urine (test code No Growth; Holding = Culture: Urine) [facility] [id number] 04:19:00 Test Item Value Reference Range Interpretation Comments Culture: Urine (test code = No Growth Culture: Urine) [facility] [id number] 04:19:00 Test Item Value Reference Range Interpretation Comments Culture: Urine (test code No Growth; Holding = Culture: Urine) [facility]: [id number] 04:19:00 Test Item Value Reference Range Interpretation Comments Culture: Urine (test code = No Growth Culture: Urine) [facility]: [id number] 04:19:00 Test Item Value Reference Range Interpretation Comments Culture: Urine (test code No Growth; Holding = Culture: Urine) [facility] [id number] 04:19:00 Test Item Value Reference Range Interpretation Comments Culture: Urine (test code = No Growth Culture: Urine) [facility]: [id number] 04:19:00 Test Item Value Reference Range Interpretation Comments Culture: Urine (test code No Growth; Holding = Culture: Urine) [facility]: [id number] 04:19:00 Test Item Value Reference Range Interpretation Comments Culture: Urine (test code = No Growth Culture: Urine) [facility]: [id number] 04:19:00 Test Item Value Reference Range Interpretation Comments Culture: Urine (test code No Growth; Holding = Culture: Urine) [facility]: [id number] 04:19:00 Test Item Value Reference Range Interpretation Comments Culture: Urine (test code = No Growth Culture: Urine) [facility]: [id number] 04:19:00 Test Item Value Reference Range Interpretation Comments Culture: Urine (test code No Growth; Holding = Culture: Urine) [facility] [id number] 04:19:00 Test Item Value Reference Range Interpretation Comments Culture: Urine (test code = No Growth Culture: Urine) [facility]: [id number] 04:19:00 Test Item Value Reference Range Interpretation Comments Culture: Urine (test code No Growth; Holding = Culture: Urine) [facility]: [id number] 04:19:00 Test Item Value Reference Range Interpretation Comments Culture: Urine (test code = No Growth Culture: Urine) [facility]2022-10-21 23:09:00 Test Item Value Reference Range Interpretation Comments Vitamin B12 Lvl (test code = Vitamin 276 B12 Lvl) [facility]2022-10-21 23:09:00 Test Item Value Reference Range Interpretation Comments Folate Lvl (test code = Folate Lvl) 3.7 [facility]2022-10-21 23:09:00 Test Item Value Reference Range Interpretation Comments Ferritin Lvl (test code = Ferritin Lvl) 108 5-204 [facility]2022-10-21 23:09:00 Test Item Value Reference Range Interpretation Comments Iron (test code = Iron) 26 [facility]2022-10-21 23:09:00 Test Item Value Reference Range Interpretation Comments TIBC (test code = TIBC) 198 [facility]2022-10-21 23:09:00 Test Item Value Reference Range Interpretation Comments % Satur Fe (test code = % Satur Fe) 13 [facility] [facility] 23:09:00 Test Item Value Reference Range Interpretation Comments Glucose Lvl (test code = Glucose Lvl) 98 70-99 [facility]2022-10-21 23:09:00 Test Item Value Reference Range Interpretation Comments BUN (test code = BUN) 12 7-22 [facility]2022-10-21 23:09:00 Test Item Value Reference Range Interpretation Comments Creatinine Lvl (test code = Creatinine 0.39 0.50-1.40 Lvl) [facility]2022-10-21 23:09:00 Test Item Value Reference Range Interpretation Comments Sodium Lvl (test code = Sodium Lvl) 134 135-145 [facility]2022-10-21 23:09:00 Test Item Value Reference Range Interpretation Comments Potassium Lvl (test code = Potassium 3.5 3.5-5.1 Lvl) [facility]2022-10-21 23:09:00 Test Item Value Reference Range Interpretation Comments Chloride Lvl (test code = Chloride Lvl) 102 95-109 [facility]2022-10-21 23:09:00 Test Item Value Reference Range Interpretation Comments CO2 (test code = CO2) 23 24-32 [facility]2022-10-21 23:09:00 Test Item Value Reference Range Interpretation Comments AGAP (test code = AGAP) 12.5 10.0-20.0 [place] 604762-10-21 23:09:00 Test Item Value Reference Range Interpretation Comments Calcium Lvl (test code = Calcium Lvl) 9.2 8.5-10.5 [place] [address]-10-21 23:09:00 Test Item Value Reference Range Interpretation Comments eGFR (test code = eGFR) 118 [place] 604762-10-21 23:09:00 Test Item Value Reference Range Interpretation Comments Magnesium Lvl (test code = Magnesium 2.0 1.8-2.4 Lvl) [place] 604762-10-21 23:09:00 Test Item Value Reference Range Interpretation Comments Phosphorus (test code = Phosphorus) 2.5 2.5-4.5 [facility] [id number] 23:09:00 Test Item Value Reference Range Interpretation Comments Total Protein (test code = Total 6.5 6.4-8.4 Protein) [place] 604762-10-21 23:09:00 Test Item Value Reference Range Interpretation Comments Albumin Lvl (test code = Albumin Lvl) 2.2 3.5-5.0 [facility] [id number] 23:09:00 Test Item Value Reference Range Interpretation Comments Globulin (test code = Globulin) 4.3 2.7-4.2 [facility] [id number] 23:09:00 Test Item Value Reference Range Interpretation Comments A/G Ratio (test code = A/G Ratio) 0.5 1 0.7-1.6 [place] [address]-10-21 23:09:00 Test Item Value Reference Range Interpretation Comments ALT (test code = ALT) 10 See_Comment [Auto mated message] The system which Moonbasa nerated this result transmit delaney reference range : <=65. The reference range was not used to interpr et this result as kiarra l/abnormal. [facility] [id number] 23:09:00 Test Item Value Reference Range Interpretation Comments AST (test code = AST) 8 See_Comment [Auto mated message] The system which ge nerated this result transmit delaney reference range : <=37. The reference range was not used to interpr et this result as kiarra l/abnormal. [facility] [address] [id number] 23:09:00 Test Item Value Reference Range Interpretation Comments Alk Phos (test code = Alk Phos) 105 39-136 [facility]2022-10-21 23:09:00 Test Item Value Reference Range Interpretation Comments Bili Total (test code = Bili Total) 0.3 0.2-1.3 [place] 604762-10-21 23:09:00 Test Item Value Reference Range Interpretation Comments Bili Direct (test code no gt See_Comment [Aut omated message] The = Bili Direct) system which generated this result tra nsmitted reference range : <=0.3. The reference r kyle was not used to int erpret this result as kiarra l/abnormal. [facility] [id number] 23:09:00 Test Item Value Reference Range Interpretation Comments Bili Indirect Unable to See_Comment [Automated (test code = Bili Calculate message] T he system Indirect) which generated this result transmitted reference range : <=1.0. The reference range was not used to interpret this result as normal/abnormal . [facility] CenterArfgniyONJLHOUUQ2294-33-49 23:09:00 Test Item Value Reference Range Interpretation Comments Total Protein (test code = Total 6.5 6.4-8.4 Protein) [place] [address]-10-21 23:09:00 Test Item Value Reference Range Interpretation Comments Albumin Lvl (test code = Albumin Lvl) 2.2 3.5-5.0 [place] [address]-10-21 23:09:00 Test Item Value Reference Range Interpretation Comments Globulin (test code = Globulin) 4.3 2.7-4.2 [place] [address]-10-21 23:09:00 Test Item Value Reference Range Interpretation Comments A/G Ratio (test code = A/G Ratio) 0.5 1 0.7-1.6 [place] [address]-10-21 23:09:00 Test Item Value Reference Range Interpretation Comments ALT (test code = ALT) 10 See_Comment [Auto mated message] The system which ge nerated this result transmit delaney reference range : <=65. The reference range was not used to interpr et this result as kiarra l/abnormal. [facility] CenterDzllqtuTAFYIHIKG4350-85-63 23:09:00 Test Item Value Reference Range Interpretation Comments AST (test code = AST) 8 See_Comment [Auto mated message] The system which ge nerated this result transmit delaney reference range : <=37. The reference range was not used to interpr et this result as kiarra l/abnormal. [facility] CenterIhlkpocMGCCFJWGE5247-54-81 23:09:00 Test Item Value Reference Range Interpretation Comments Alk Phos (test code = Alk Phos) 105 39-136 [facility]IkprpqtEJRXCTTOC0185-82-54 23:09:00 Test Item Value Reference Range Interpretation Comments Bili Total (test code = Bili Total) 0.3 0.2-1.3 [facility] HospitalCpzyvksOWYCBHWAG1724-47-46 23:09:00 Test Item Value Reference Range Interpretation Comments Bili Direct (test code no gt See_Comment [Aut omated message] The = Bili Direct) system which generated this result tra nsmitted reference range : <=0.3. The reference r kyle was not used to int erpret this result as kiarra l/abnormal. [facility] CenterXeluhiwOGDDSWHWV7480-65-51 23:09:00 Test Item Value Reference Range Interpretation Comments Bili Indirect Unable to See_Comment [Automated (test code = Bili Calculate message] T he system Indirect) which generated this result transmitted reference range : <=1.0. The reference range was not used to interpret this result as normal/abnormal . [facility] CenterWdaklvlUMTVJGRJJ4626-48-63 23:09:00 Test Item Value Reference Range Interpretation Comments Vitamin B12 Lvl (test code = Vitamin [phone] B12 Lvl) [facility] HospitalEuepasaLDAACSVLG0819-84-35 23:09:00 Test Item Value Reference Range Interpretation Comments Folate Lvl (test code = Folate Lvl) 3.7 [facility] CenterJchrsqoZDZLCNYLH9969-13-60 23:09:00 Test Item Value Reference Range Interpretation Comments Ferritin Lvl (test code = Ferritin Lvl) 108 5-204 [facility] CenterMfyzqzsPGEFUFUIW9200-37-54 23:09:00 Test Item Value Reference Range Interpretation Comments Iron (test code = Iron) 26 45-160 [facility] CenterQbrghyvRXGLHXSQG0043-28-11 23:09:00 Test Item Value Reference Range Interpretation Comments TIBC (test code = TIBC) 198 250-450 [facility] HospitalOaimykwMLRLYCJSU4971-08-44 23:09:00 Test Item Value Reference Range Interpretation Comments % Satur Fe (test code = % Satur Fe) 13 16-45 [facility] HospitalVozulamWVFKPYTONE2487-04-97 23:09:00 Test Item Value Reference Range Interpretation Comments Segs (test code = Segs) 68.9 45.0-75.0 [facility] HospitalGnuhcpdNMJZGMQBYI1523-98-04 23:09:00 Test Item Value Reference Range Interpretation Comments Lymphocytes (test code = Lymphocytes) 22.4 20.0-40.0 [place] 587612-10-21 23:09:00 Test Item Value Reference Range Interpretation Comments Monocytes (test code = Monocytes) 5.7 2.0-12.0 [place] 587612-10-21 23:09:00 Test Item Value Reference Range Interpretation Comments Eosinophils (test code = 2.6 See_Comment [A utomated message] The Eosinophils) system which ge nerated this result tra nsmitted reference range : <=4.0. The reference r kyle was not used to int erpret this result as normal/abnormal . [facility] HospitalJoqeefnPDHCVVIDFZ2699-09-78 23:09:00 Test Item Value Reference Range Interpretation Comments Basophils (test code = 0.4 See_Comment [Aut omated message] The Basophils) system which ge nerated this result tra nsmitted reference range : <=1.0. The reference r kyle was not used to int erpret this result as normal/abnormal . [facility] HospitalTbbwocxMYRMZKHWSM7377-31-45 23:09:00 Test Item Value Reference Range Interpretation Comments Neutrophils # (test code = Neutrophils 8.7 1.5-8.1 #) [place] 587612-10-21 23:09:00 Test Item Value Reference Range Interpretation Comments Lymphocytes # (test code = Lymphocytes 2.8 1.0-5.5 #) [place] 587612-10-21 23:09:00 Test Item Value Reference Range Interpretation Comments Monocytes # (test code 0.7 See_Comment [Aut omated message] The = Monocytes #) system which generated this result tra nsmitted reference range : <=0.8. The reference r kyle was not used to int erpret this result as normal/abnormal . [facility] HospitalXsrbcgyDGNVAHCVKO5352-37-07 23:09:00 Test Item Value Reference Range Interpretation Comments Eosinophils # (test code 0.3 See_Comment [A utomated message] The = Eosinophils #) system whic h generated this result tra nsmitted reference range : <=0.5. The reference r kyle was not used to int erpret this result as normal/abnormal . [facility] HospitalVoweeopKXPSSCPNXS4831-85-02 23:09:00 Test Item Value Reference Range Interpretation Comments WBC (test code = WBC) 12.6 3.7-10.4 [facility] HospitalDfomnlfDFTNXJAMBN3452-77-77 23:09:00 Test Item Value Reference Range Interpretation Comments RBC (test code = RBC) 3.13 4.20-5.40 [place] 587612-10-21 23:09:00 Test Item Value Reference Range Interpretation Comments MCV (test code = MCV) 85.6 80.0-98.0 [facility] HospitalYpdohunXNEKSWAPVS4577-02-58 23:09:00 Test Item Value Reference Range Interpretation Comments MCH (test code = MCH) 27.2 pg 27.0-31.0 [facility] HospitalPbonoczMPUIAUYWFE8524-46-27 23:09:00 Test Item Value Reference Range Interpretation Comments MCHC (test code = MCHC) 31.8 32.0-36.0 [facility] HospitalSxmtsamFMTITJKVBB0794-05-52 23:09:00 Test Item Value Reference Range Interpretation Comments RDW (test code = RDW) 12.4 11.5-14.5 [facility] HospitalOkvzarfZGLDCRGFUX5688-02-30 23:09:00 Test Item Value Reference Range Interpretation Comments Platelet (test code = Platelet) 373 133-450 [facility] HospitalWwazewtOPFXFZLOHC8369-01-18 23:09:00 Test Item Value Reference Range Interpretation Comments MPV (test code = MPV) 8.2 7.4-10.4 [facility] CenterIMIPENEM:SUSC:PT:ISOLATE:ORDQN:[id number] 23:09:00 Test Item Value Reference Range Interpretation Comments Culture: Blood Aerobic Bottle: (test code = Staphylococcus epidermidis Culture: Blood) . Critical Results Called To: Gabe CHONG At: 06/25/2022 06:39 Called By: YAKOV Read Back Ok . Critical Results Called To: DR. LOZOYA AND Paolo CHRISTIAN RN At: 06/25/2022 07:20 Called By: ELIAS Read Back Ok [facility] CenterIMIPENEM:SUSC:PT:ISOLATE:ORDQN:[id number] 23:09:00 Test Item Value Reference Range Interpretation Comments Staphylococcus Staphylococcus epidermidis (test code epidermidis = Staphylococcus epidermidis) [facility] CenterLaizjkvOFUSZNOCOL4198-51-36 23:09:00 Test Item Value Reference Range Interpretation Comments HIV Ag/Ab 4th Gen Negative *NA*(06/23/22 (test code = HIV 6:09 PM) Ag/Ab 4th Gen) [facility] CenterElgbestLDBBWMYKWL5043-55-23 23:09:00 Test Item Value Reference Range Interpretation Comments RPR (test code = RPR) Non Reactive (06/23/22 6:09 PM) [facility] CenterCbipgcdXYHGBAJENH7840-65-29 23:09:00 Test Item Value Reference Range Interpretation Comments Hep A IgM (test code = Hep A NON-REACTIVE IgM) [facility] CenterXbanzfnZILQYSITBR2690-40-19 23:09:00 Test Item Value Reference Range Interpretation Comments Hep Bs Ag (test code = Hep Bs NON-REACTIVE Ag) [facility] CenterTkqsidaOVKGQHFHLP7468-54-66 23:09:00 Test Item Value Reference Range Interpretation Comments Hep B Core IgM (test code = Hep NON-REACTIVE B Core IgM) [facility] CenterLpvqpxdEGYJQNAVUR2126-46-00 23:09:00 Test Item Value Reference Range Interpretation Comments Hep C Ab (test code = Hep C Ab) NON-REACTIVE [facility] CenterJlylxzbQJLVQKPNZH1148-27-83 23:09:00 Test Item Value Reference Range Interpretation Comments Hep Signal to Cut-Off (test code = Hep 0.07 1 Signal to Cut-Off) [facility] CenterBvhjuzxWPTFLMCLLP6641-74-59 23:09:00 Test Item Value Reference Range Interpretation Comments HIV Ag/Ab 4th Gen Negative *NA*(06/23/22 (test code = HIV 6:09 PM) Ag/Ab 4th Gen) [facility] CenterKfcqxbhUBIUTVUORZ2676-45-46 23:09:00 Test Item Value Reference Range Interpretation Comments RPR (test code = RPR) Non Reactive (06/23/22 6:09 PM) [facility] CenterCulture: [id number] 23:09:00 Test Item Value Reference Range Interpretation Comments Culture: Blood Anaerobic Bottle: (test code = Staphylococcus epidermidis Culture: Blood) , Refer To Culture # [phone] for call notification. [facility] HTRUF8632-06-41 23:09:00 Test Item Value Reference Range Interpretation Comments Vitamin B12 Lvl (test code = Vitamin 276 B12 Lvl) [place] 153112-10-21 23:09:00 Test Item Value Reference Range Interpretation Comments Folate Lvl (test code = Folate Lvl) 3.7 [place] 153112-10-21 23:09:00 Test Item Value Reference Range Interpretation Comments Ferritin Lvl (test code = Ferritin Lvl) 108 5-204 [place] 153112-10-21 23:09:00 Test Item Value Reference Range Interpretation Comments Iron (test code = Iron) 26 [place] 153112-10-21 23:09:00 Test Item Value Reference Range Interpretation Comments TIBC (test code = TIBC) 198 [place] 153112-10-21 23:09:00 Test Item Value Reference Range Interpretation Comments % Satur Fe (test code = % Satur Fe) 13 [place] 604762-10-21 23:09:00 Test Item Value Reference Range Interpretation Comments Glucose Lvl (test code = Glucose Lvl) 98 70-99 [place] 604762-10-21 23:09:00 Test Item Value Reference Range Interpretation Comments BUN (test code = BUN) 12 7-22 [place] 604762-10-21 23:09:00 Test Item Value Reference Range Interpretation Comments Creatinine Lvl (test code = Creatinine 0.39 0.50-1.40 Lvl) [place] 604762-10-21 23:09:00 Test Item Value Reference Range Interpretation Comments Sodium Lvl (test code = Sodium Lvl) 134 135-145 [place] 604762-10-21 23:09:00 Test Item Value Reference Range Interpretation Comments Potassium Lvl (test code = Potassium 3.5 3.5-5.1 Lvl) [place] 604762-10-21 23:09:00 Test Item Value Reference Range Interpretation Comments Chloride Lvl (test code = Chloride Lvl) 102 95-109 [place] 604762-10-21 23:09:00 Test Item Value Reference Range Interpretation Comments CO2 (test code = CO2) 23 24-32 [place] 604762-10-21 23:09:00 Test Item Value Reference Range Interpretation Comments AGAP (test code = AGAP) 12.5 10.0-20.0 [place] 604762-10-21 23:09:00 Test Item Value Reference Range Interpretation Comments Calcium Lvl (test code = Calcium Lvl) 9.2 8.5-10.5 [place] 604762-10-21 23:09:00 Test Item Value Reference Range Interpretation Comments eGFR (test code = eGFR) 118 [place] 604762-10-21 23:09:00 Test Item Value Reference Range Interpretation Comments Magnesium Lvl (test code = Magnesium 2.0 1.8-2.4 Lvl) [place] [address]-10-21 23:09:00 Test Item Value Reference Range Interpretation Comments Phosphorus (test code = Phosphorus) 2.5 2.5-4.5 [place] 604762-10-21 23:09:00 Test Item Value Reference Range Interpretation Comments Total Protein (test code = Total 6.5 6.4-8.4 Protein) [place] 604762-10-21 23:09:00 Test Item Value Reference Range Interpretation Comments Albumin Lvl (test code = Albumin Lvl) 2.2 3.5-5.0 [place] [address]-10-21 23:09:00 Test Item Value Reference Range Interpretation Comments Globulin (test code = Globulin) 4.3 2.7-4.2 [place] 604762-10-21 23:09:00 Test Item Value Reference Range Interpretation Comments A/G Ratio (test code = A/G Ratio) 0.5 1 0.7-1.6 [place] [address]-10-21 23:09:00 Test Item Value Reference Range Interpretation Comments ALT (test code = ALT) 10 See_Comment [Auto mated message] The system which ge nerated this result transmit delaney reference range : <=65. The reference range was not used to interpr et this result as kiarra l/abnormal. [place] [address]-10-21 23:09:00 Test Item Value Reference Range Interpretation Comments AST (test code = AST) 8 See_Comment [Auto mated message] The system which ge nerated this result transmit delaney reference range : <=37. The reference range was not used to interpr et this result as kiarra l/abnormal. [facility] Centermy[facility]Club[facility] [id number] 23:09:00 Test Item Value Reference Range Interpretation Comments Alk Phos (test code = Alk Phos) 105 39-136 [facility] [place] [address] [id number] 23:09:00 Test Item Value Reference Range Interpretation Comments Bili Total (test code = Bili Total) 0.3 0.2-1.3 [facility] [place] [address] [id number] 23:09:00 Test Item Value Reference Range Interpretation Comments Bili Direct (test code no gt See_Comment [Aut omated message] The = Bili Direct) system which generated this result tra nsmitted reference range : <=0.3. The reference r kyle was not used to int erpret this result as kiarra l/abnormal. [facility] [place] [address] [id number] 23:09:00 Test Item Value Reference Range Interpretation Comments Bili Indirect Unable to See_Comment [Automated (test code = Bili Calculate message] T he system Indirect) which generated this result transmitted reference range : <=1.0. The reference range was not used to interpret this result as normal/abnormal . [facility] [place] LqsxshtRHJALYBXQ7960-71-36 23:09:00 Test Item Value Reference Range Interpretation Comments Total Protein (test code = Total 6.5 6.4-8.4 Protein) [facility] CenterGpiqzqzTTXIJTUNH9527-74-55 23:09:00 Test Item Value Reference Range Interpretation Comments Albumin Lvl (test code = Albumin Lvl) 2.2 3.5-5.0 [facility] CenterAnhfsbgXKHGLMUVU1464-01-89 23:09:00 Test Item Value Reference Range Interpretation Comments Globulin (test code = Globulin) 4.3 2.7-4.2 [facility] CenterJkcketgYRNEWLOZI3408-53-25 23:09:00 Test Item Value Reference Range Interpretation Comments A/G Ratio (test code = A/G Ratio) 0.5 1 0.7-1.6 [facility] CenterRrloyvdHUIIBYZSP9686-88-62 23:09:00 Test Item Value Reference Range Interpretation Comments ALT (test code = ALT) 10 See_Comment [Auto mated message] The system which ge nerated this result transmit delaney reference range : <=65. The reference range was not used to interpr et this result as kiarra l/abnormal. [facility] IslyxqfPNHISVVIN2330-68-36 23:09:00 Test Item Value Reference Range Interpretation Comments AST (test code = AST) 8 See_Comment [Auto mated message] The system which ge nerated this result transmit delaney reference range : <=37. The reference range was not used to interpr et this result as kiarra l/abnormal. [facility] CenterSyjhqvyTMSBYJPUU1748-22-01 23:09:00 Test Item Value Reference Range Interpretation Comments Alk Phos (test code = Alk Phos) 105 39-136 [facility] HospitalBilyyvwDFPXNTGEW1971-86-95 23:09:00 Test Item Value Reference Range Interpretation Comments Bili Total (test code = Bili Total) 0.3 0.2-1.3 [facility] CenterRinwurhVSCKGDOEZ2609-81-62 23:09:00 Test Item Value Reference Range Interpretation Comments Bili Direct (test code no gt See_Comment [Aut omated message] The = Bili Direct) system which generated this result tra nsmitted reference range : <=0.3. The reference r kyle was not used to int erpret this result as kiarra l/abnormal. [facility] CenterKuuzawgOOQPVVNQX6680-90-81 23:09:00 Test Item Value Reference Range Interpretation Comments Bili Indirect Unable to See_Comment [Automated (test code = Bili Calculate message] T he system Indirect) which generated this result transmitted reference range : <=1.0. The reference range was not used to interpret this result as normal/abnormal . [facility] CenterHigmacgQBYDGLRDI7714-88-23 23:09:00 Test Item Value Reference Range Interpretation Comments Vitamin B12 Lvl (test code = Vitamin 424 776-1089 B12 Lvl) [facility] CenterLghbohvXOPENMLED1986-04-28 23:09:00 Test Item Value Reference Range Interpretation Comments Folate Lvl (test code = Folate Lvl) 3.7 [facility] CenterGbndzflSITXRCDUR7258-11-30 23:09:00 Test Item Value Reference Range Interpretation Comments Ferritin Lvl (test code = Ferritin Lvl) 108 5-204 [facility] CenterBatvpyqONPALBLIW4046-65-17 23:09:00 Test Item Value Reference Range Interpretation Comments Iron (test code = Iron) 26 45-160 [facility] CenterQqjslfhJEFDMQAEG6597-90-17 23:09:00 Test Item Value Reference Range Interpretation Comments TIBC (test code = TIBC) 198 250-450 [facility] HospitalBdlwpvmXDHFQUOVN4407-54-58 23:09:00 Test Item Value Reference Range Interpretation Comments % Satur Fe (test code = % Satur Fe) 13 16-45 [facility] HospitalOlhvmznMFWNJFXRTD8343-99-31 23:09:00 Test Item Value Reference Range Interpretation Comments Segs (test code = Segs) 68.9 45.0-75.0 [place] 587612-10-21 23:09:00 Test Item Value Reference Range Interpretation Comments Lymphocytes (test code = Lymphocytes) 22.4 20.0-40.0 [place] 587612-10-21 23:09:00 Test Item Value Reference Range Interpretation Comments Monocytes (test code = Monocytes) 5.7 2.0-12.0 [facility] HospitalSkltckhQIJGPBZCSY6923-78-63 23:09:00 Test Item Value Reference Range Interpretation Comments Eosinophils (test code = 2.6 See_Comment [A utomated message] The Eosinophils) system which ge nerated this result tra nsmitted reference range : <=4.0. The reference r kyle was not used to int erpret this result as normal/abnormal . [facility] HospitalNhcesfkZUYHOWRAPP0414-82-31 23:09:00 Test Item Value Reference Range Interpretation Comments Basophils (test code = 0.4 See_Comment [Aut omated message] The Basophils) system which ge nerated this result tra nsmitted reference range : <=1.0. The reference r kyle was not used to int erpret this result as normal/abnormal . [facility] HospitalZsgtboqRVWPPYJZIE6560-14-01 23:09:00 Test Item Value Reference Range Interpretation Comments Neutrophils # (test code = Neutrophils 8.7 1.5-8.1 #) [facility] HospitalKayzjcySKVERACBSQ5377-68-17 23:09:00 Test Item Value Reference Range Interpretation Comments Lymphocytes # (test code = Lymphocytes 2.8 1.0-5.5 #) [place] 587612-10-21 23:09:00 Test Item Value Reference Range Interpretation Comments Monocytes # (test code 0.7 See_Comment [Aut omated message] The = Monocytes #) system which generated this result tra nsmitted reference range : <=0.8. The reference r kyle was not used to int erpret this result as normal/abnormal . [facility] HospitalVtkvzszLEHHFQDXGR5750-77-04 23:09:00 Test Item Value Reference Range Interpretation Comments Eosinophils # (test code 0.3 See_Comment [A utomated message] The = Eosinophils #) system [employer] h generated this result tra nsmitted reference range : <=0.5. The reference r kyle was not used to int erpret this result as normal/abnormal . [facility] HospitalLobtoetNOEXRKVFKI0325-08-30 23:09:00 Test Item Value Reference Range Interpretation Comments WBC (test code = WBC) 12.6 3.7-10.4 [facility] HospitalLyfigccISURQBEVOD4700-27-43 23:09:00 Test Item Value Reference Range Interpretation Comments RBC (test code = RBC) 3.13 4.20-5.40 [facility] HospitalIutipstYOUTQXAROX7764-26-32 23:09:00 Test Item Value Reference Range Interpretation Comments MCV (test code = MCV) 85.6 80.0-98.0 [facility]FtwxzwtVDPVVUKOEM4067-53-74 23:09:00 Test Item Value Reference Range Interpretation Comments MCH (test code = MCH) 27.2 pg 27.0-31.0 [facility] HospitalEnnpxioMXTEGJEPZD0891-04-43 23:09:00 Test Item Value Reference Range Interpretation Comments MCHC (test code = MCHC) 31.8 32.0-36.0 [facility] HospitalIbokzqxCVSVZUHHDH2665-77-71 23:09:00 Test Item Value Reference Range Interpretation Comments RDW (test code = RDW) 12.4 11.5-14.5 [facility] CenterVqpepuwZESBOYEIBT0675-25-29 23:09:00 Test Item Value Reference Range Interpretation Comments Platelet (test code = Platelet) 373 133-450 [facility] HospitalVeessoeFKAHURHSSV7479-08-55 23:09:00 Test Item Value Reference Range Interpretation Comments MPV (test code = MPV) 8.2 7.4-10.4 [facility]annIMIPENEM:SUSC:PT:ISOLATE:ORDQN:[id number] 23:09:00 Test Item Value Reference Range Interpretation Comments Culture: Blood Aerobic Bottle: (test code = Staphylococcus epidermidis Culture: Blood) . Critical Results Called To: Gabe CHONG At: 06/25/2022 06:39 Called By: YAKOV Read Back Ok . Critical Results Called To: DR. LOZOYA AND Paolo CHRISTIAN RN At: 06/25/2022 07:20 Called By: ELIAS Read Back Ok [facility]annIMIPENEM:SUSC:PT:ISOLATE:ORDQN:[id number] 23:09:00 Test Item Value Reference Range Interpretation Comments Staphylococcus Staphylococcus epidermidis (test code epidermidis = Staphylococcus epidermidis) [facility] CenterAeifzgqKBOLZTBPSC2641-70-94 23:09:00 Test Item Value Reference Range Interpretation Comments HIV Ag/Ab 4th Gen Negative *NA*(06/23/22 (test code = HIV 6:09 PM) Ag/Ab 4th Gen) [facility] CenterPyesqbvERPFSNNPFE8441-56-55 23:09:00 Test Item Value Reference Range Interpretation Comments RPR (test code = RPR) Non Reactive (06/23/22 6:09 PM) [facility] CenterKeefiesKRMEABLIBL3772-19-46 23:09:00 Test Item Value Reference Range Interpretation Comments Hep A IgM (test code = Hep A NON-REACTIVE IgM) [facility] CenterOgzljiqLPBYKENMYU9138-38-85 23:09:00 Test Item Value Reference Range Interpretation Comments Hep Bs Ag (test code = Hep Bs NON-REACTIVE Ag) [facility] CenterDhnexenIAEDHMZJUR6327-76-47 23:09:00 Test Item Value Reference Range Interpretation Comments Hep B Core IgM (test code = Hep NON-REACTIVE B Core IgM) [facility] CenterLswejytISZULADAEW3222-18-84 23:09:00 Test Item Value Reference Range Interpretation Comments Hep C Ab (test code = Hep C Ab) NON-REACTIVE [facility] CenterMsxmyqlHWARUNWDYI7672-13-52 23:09:00 Test Item Value Reference Range Interpretation Comments Hep Signal to Cut-Off (test code = Hep 0.07 1 Signal to Cut-Off) [facility] CenterZaxzdfbCBQTTYKWFY2136-52-37 23:09:00 Test Item Value Reference Range Interpretation Comments HIV Ag/Ab 4th Gen Negative *NA*(06/23/22 (test code = HIV 6:09 PM) Ag/Ab 4th Gen) [facility] CenterNmajimtFUGVVQEGSY8796-48-76 23:09:00 Test Item Value Reference Range Interpretation Comments RPR (test code = RPR) Non Reactive (06/23/22 6:09 PM) [facility] CenterCulture: [id number] 23:09:00 Test Item Value Reference Range Interpretation Comments Culture: Blood Anaerobic Bottle: (test code = Staphylococcus epidermidis Culture: Blood) , Refer To Culture # [id number] for call notification. [facility]2022-10-21 23:09:00 Test Item Value Reference Range Interpretation Comments Vitamin B12 Lvl (test code = Vitamin 276 B12 Lvl) [facility]2022-10-21 23:09:00 Test Item Value Reference Range Interpretation Comments Folate Lvl (test code = Folate Lvl) 3.7 [place] 153112-10-21 23:09:00 Test Item Value Reference Range Interpretation Comments Ferritin Lvl (test code = Ferritin Lvl) 108 5-204 [place] 153112-10-21 23:09:00 Test Item Value Reference Range Interpretation Comments Iron (test code = Iron) 26 [facility]2022-10-21 23:09:00 Test Item Value Reference Range Interpretation Comments TIBC (test code = TIBC) 198 [facility]2022-10-21 23:09:00 Test Item Value Reference Range Interpretation Comments % Satur Fe (test code = % Satur Fe) 13 [facility]2022-10-21 23:09:00 Test Item Value Reference Range Interpretation Comments Glucose Lvl (test code = Glucose Lvl) 98 70-99 [place] 604762-10-21 23:09:00 Test Item Value Reference Range Interpretation Comments BUN (test code = BUN) 12 7-22 [place] 604762-10-21 23:09:00 Test Item Value Reference Range Interpretation Comments Creatinine Lvl (test code = Creatinine 0.39 0.50-1.40 Lvl) [facility]2022-10-21 23:09:00 Test Item Value Reference Range Interpretation Comments Sodium Lvl (test code = Sodium Lvl) 134 135-145 [place] 604762-10-21 23:09:00 Test Item Value Reference Range Interpretation Comments Potassium Lvl (test code = Potassium 3.5 3.5-5.1 Lvl) [place] 604762-10-21 23:09:00 Test Item Value Reference Range Interpretation Comments Chloride Lvl (test code = Chloride Lvl) 102 95-109 [place] 604762-10-21 23:09:00 Test Item Value Reference Range Interpretation Comments CO2 (test code = CO2) 23 24-32 [place] 604762-10-21 23:09:00 Test Item Value Reference Range Interpretation Comments AGAP (test code = AGAP) 12.5 10.0-20.0 [place] 604762-10-21 23:09:00 Test Item Value Reference Range Interpretation Comments Calcium Lvl (test code = Calcium Lvl) 9.2 8.5-10.5 [facility]2022-10-21 23:09:00 Test Item Value Reference Range Interpretation Comments eGFR (test code = eGFR) 118 [facility]2022-10-21 23:09:00 Test Item Value Reference Range Interpretation Comments Magnesium Lvl (test code = Magnesium 2.0 1.8-2.4 Lvl) [facility]2022-10-21 23:09:00 Test Item Value Reference Range Interpretation Comments Phosphorus (test code = Phosphorus) 2.5 2.5-4.5 [facility]2022-10-21 23:09:00 Test Item Value Reference Range Interpretation Comments Vitamin B12 Lvl (test code = Vitamin 276 B12 Lvl) [facility]2022-10-21 23:09:00 Test Item Value Reference Range Interpretation Comments Folate Lvl (test code = Folate Lvl) 3.7 [facility]2022-10-21 23:09:00 Test Item Value Reference Range Interpretation Comments Ferritin Lvl (test code = Ferritin Lvl) 108 5-204 [facility]2022-10-21 23:09:00 Test Item Value Reference Range Interpretation Comments Iron (test code = Iron) 26 [facility]2022-10-21 23:09:00 Test Item Value Reference Range Interpretation Comments TIBC (test code = TIBC) 198 [facility]2022-10-21 23:09:00 Test Item Value Reference Range Interpretation Comments % Satur Fe (test code = % Satur Fe) 13 [facility]2022-10-21 23:09:00 Test Item Value Reference Range Interpretation Comments Glucose Lvl (test code = Glucose Lvl) 98 70-99 [facility]2022-10-21 23:09:00 Test Item Value Reference Range Interpretation Comments BUN (test code = BUN) 12 7-22 [place] 604762-10-21 23:09:00 Test Item Value Reference Range Interpretation Comments Total Protein (test code = Total 6.5 6.4-8.4 Protein) [facility]2022-10-21 23:09:00 Test Item Value Reference Range Interpretation Comments Creatinine Lvl (test code = Creatinine 0.39 0.50-1.40 Lvl) [facility]2022-10-21 23:09:00 Test Item Value Reference Range Interpretation Comments Sodium Lvl (test code = Sodium Lvl) 134 135-145 [place] 604762-10-21 23:09:00 Test Item Value Reference Range Interpretation Comments Potassium Lvl (test code = Potassium 3.5 3.5-5.1 Lvl) [facility] CenterSeenWATAUGA MEDICAL CENTERVDTQQ7243-32-88 23:09:00 Test Item Value Reference Range Interpretation Comments Chloride Lvl (test code = Chloride Lvl) 102 95-109 [facility]2022-10-21 23:09:00 Test Item Value Reference Range Interpretation Comments CO2 (test code = CO2) 23 24-32 [place] 604762-10-21 23:09:00 Test Item Value Reference Range Interpretation Comments AGAP (test code = AGAP) 12.5 10.0-20.0 [place] 604762-10-21 23:09:00 Test Item Value Reference Range Interpretation Comments Calcium Lvl (test code = Calcium Lvl) 9.2 8.5-10.5 [facility] CenterSeenWATAUGA MEDICAL CENTEROEEEW9158-27-83 23:09:00 Test Item Value Reference Range Interpretation Comments eGFR (test code = eGFR) 118 [facility]2022-10-21 23:09:00 Test Item Value Reference Range Interpretation Comments Magnesium Lvl (test code = Magnesium 2.0 1.8-2.4 Lvl) [facility]2022-10-21 23:09:00 Test Item Value Reference Range Interpretation Comments Phosphorus (test code = Phosphorus) 2.5 2.5-4.5 [facility] CenterBobber [facility] Corporation [id number] 23:09:00 Test Item Value Reference Range Interpretation Comments Albumin Lvl (test code = Albumin Lvl) 2.2 3.5-5.0 [facility] CenterBobber Interactive Corporation [id number] 23:09:00 Test Item Value Reference Range Interpretation Comments Total Protein (test code = Total 6.5 6.4-8.4 Protein) [place] 604762-10-21 23:09:00 Test Item Value Reference Range Interpretation Comments Albumin Lvl (test code = Albumin Lvl) 2.2 3.5-5.[address]10-21 23:09:00 Test Item Value Reference Range Interpretation Comments Globulin (test code = Globulin) 4.3 2.7-4.[address]10-21 23:09:00 Test Item Value Reference Range Interpretation Comments A/G Ratio (test code = A/G Ratio) 0.5 1 0.7-1.[address]10-21 23:09:00 Test Item Value Reference Range Interpretation Comments ALT (test code = ALT) 10 See_Comment [Auto mated message] The system which ge nerated this result transmit delaney reference range : <=65. The reference range was not used to interpr et this result as kiarra l/abnormal. [facility] CentermyShavingClub.com [id number] 23:09:00 Test Item Value Reference Range Interpretation Comments AST (test code = AST) 8 See_Comment [Auto mated message] The system which ge nerated this result transmit delaney reference range : <=37. The reference range was not used to interpr et this result as kiarra l/abnormal. [facility] CentermyShavingClub.com FCJYL7055-40-24 23:09:00 Test Item Value Reference Range Interpretation Comments Alk Phos (test code = Alk Phos) 105 39-136 [facility] CentermyShavingClub.com TRFJT9131-83-10 23:09:00 Test Item Value Reference Range Interpretation Comments Bili Total (test code = Bili Total) 0.3 0.2-1.3 [facility] CentermyShavingClub[facility]com [id number] 23:09:00 Test Item Value Reference Range Interpretation Comments Bili Direct (test code no gt See_Comment [Aut omated message] The = Bili Direct) system which generated this result tra nsmitted reference range : <=0.3. The reference r kyle was not used to int erpret this result as kiarra l/abnormal. [facility] CenterBob[facility] Corporation [id number] 23:09:00 Test Item Value Reference Range Interpretation Comments Bili Indirect Unable to See_Comment [Automated (test code = Bili Calculate message] T he system Indirect) which generated this result transmitted reference range : <=1.0. The reference range was not used to interpret this result as normal/abnormal . [facility]2022-10-21 23:09:00 Test Item Value Reference Range Interpretation Comments Globulin (test code = Globulin) 4.3 2.7-4.2 [facility] HospitalHwqrhstGRXDXVXBY9385-40-62 23:09:00 Test Item Value Reference Range Interpretation Comments Total Protein (test code = Total 6.5 6.4-8.4 Protein) [facility] HospitalNlwqwekAXJTRNELJ4842-72-23 23:09:00 Test Item Value Reference Range Interpretation Comments Albumin Lvl (test code = Albumin Lvl) 2.2 3.5-5.0 [facility] HospitalBqpiuacWYNBXRAJP4345-35-32 23:09:00 Test Item Value Reference Range Interpretation Comments Globulin (test code = Globulin) 4.3 2.7-4.2 [facility] HospitalKovsvdfCWBKBODLV2240-94-58 23:09:00 Test Item Value Reference Range Interpretation Comments A/G Ratio (test code = A/G Ratio) 0.5 1 0.7-1.6 [facility] HospitalYstuklwEPRIJJAOA5634-85-77 23:09:00 Test Item Value Reference Range Interpretation Comments ALT (test code = ALT) 10 See_Comment [Auto mated message] The system which ge nerated this result transmit delaney reference range : <=65. The reference range was not used to interpr et this result as kiarra l/abnormal. [facility] HospitalQvlbfraSDORWINIK6255-61-82 23:09:00 Test Item Value Reference Range Interpretation Comments AST (test code = AST) 8 See_Comment [Auto mated message] The system which ge nerated this result transmit delaney reference range : <=37. The reference range was not used to interpr et this result as kiarra l/abnormal. [facility] CenterNzhxdpxQGSWEIITR9353-66-81 23:09:00 Test Item Value Reference Range Interpretation Comments Alk Phos (test code = Alk Phos) 105 39-136 [facility] HospitalMamrfvfKSINFCJSQ0533-01-08 23:09:00 Test Item Value Reference Range Interpretation Comments Bili Total (test code = Bili Total) 0.3 0.2-1.3 [facility] HospitalAsvstneJKLYCHOAY8786-89-74 23:09:00 Test Item Value Reference Range Interpretation Comments Bili Direct (test code no gt See_Comment [Aut omated message] The = Bili Direct) system which generated this result tra nsmitted reference range : <=0.3. The reference r kyle was not used to int erpret this result as kiarra l/abnormal. [facility] HospitalAvhwcjqKSTEJBURY1597-83-59 23:09:00 Test Item Value Reference Range Interpretation Comments Bili Indirect Unable to See_Comment [Automated (test code = Bili Calculate message] T he system Indirect) which generated this result transmitted reference range : <=1.0. The reference range was not used to interpret this result as normal/abnormal . [facility]2022-10-21 23:09:00 Test Item Value Reference Range Interpretation Comments A/G Ratio (test code = A/G Ratio) 0.5 1 0.7-1.6 [facility] HospitalTlniblyLPHDUZQLV5482-30-59 23:09:00 Test Item Value Reference Range Interpretation Comments Vitamin B12 Lvl (test code = Vitamin 414 079-1745 B12 Lvl) [facility] HospitalZntixhcQGYEEFGSY7731-23-80 23:09:00 Test Item Value Reference Range Interpretation Comments Folate Lvl (test code = Folate Lvl) 3.7 [place] 286112-10-21 23:09:00 Test Item Value Reference Range Interpretation Comments Ferritin Lvl (test code = Ferritin Lvl) 108 5-204 [facility] HospitalRxqqfqrFSVKHTLFY6261-41-38 23:09:00 Test Item Value Reference Range Interpretation Comments Iron (test code = Iron) 26 45-160 [facility] HospitalJnuschpDORAOYZLD9343-50-71 23:09:00 Test Item Value Reference Range Interpretation Comments TIBC (test code = TIBC) 198 250-450 [facility] HospitalFkrzohlFTXYOACIT0583-80-66 23:09:00 Test Item Value Reference Range Interpretation Comments % Satur Fe (test code = % Satur Fe) 13 16-45 [facility] HospitalHfirqewAWCOBJWGFM7561-18-62 23:09:00 Test Item Value Reference Range Interpretation Comments Segs (test code = Segs) 68.9 45.0-75.0 [facility] HospitalZzoxnewKMRKDRJXLO1578-74-52 23:09:00 Test Item Value Reference Range Interpretation Comments Lymphocytes (test code = Lymphocytes) 22.4 20.0-40.0 [facility] HospitalZxxlsuePPCJZRAFET1476-65-31 23:09:00 Test Item Value Reference Range Interpretation Comments Monocytes (test code = Monocytes) 5.7 2.0-12.0 [place] 587612-10-21 23:09:00 Test Item Value Reference Range Interpretation Comments Eosinophils (test code = 2.6 See_Comment [A utomated message] The Eosinophils) system which ge nerated this result tra nsmitted reference range : <=4.0. The reference r kyle was not used to int erpret this result as normal/abnormal . [facility]2022-10-21 23:09:00 Test Item Value Reference Range Interpretation Comments ALT (test code = ALT) 10 See_Comment [Auto mated message] The system which ge nerated this result transmit delaney reference range : <=65. The reference range was not used to interpr et this result as kiarra l/abnormal. [place] [address]-10-21 23:09:00 Test Item Value Reference Range Interpretation Comments Basophils (test code = 0.4 See_Comment [Aut omated message] The Basophils) system which ge nerated this result tra nsmitted reference range : <=1.0. The reference r kyle was not used to int erpret this result as normal/abnormal . [place] [address]-10-21 23:09:00 Test Item Value Reference Range Interpretation Comments Neutrophils # (test code = Neutrophils 8.7 1.5-8.1 #) [place] [address]-10-21 23:09:00 Test Item Value Reference Range Interpretation Comments Lymphocytes # (test code = Lymphocytes 2.8 1.0-5.5 #) [place] [address]-10-21 23:09:00 Test Item Value Reference Range Interpretation Comments Monocytes # (test code 0.7 See_Comment [Aut omated message] The = Monocytes #) system which generated this result tra nsmitted reference range : <=0.8. The reference r kyle was not used to int erpret this result as normal/abnormal . [place] [address]-10-21 23:09:00 Test Item Value Reference Range Interpretation Comments Eosinophils # (test code 0.3 See_Comment [A utomated message] The = Eosinophils #) system whic h generated this result tra nsmitted reference range : <=0.5. The reference r kyle was not used to int erpret this result as normal/abnormal . [facility] CenterYgrjqacEYRDYHXNAK0750-59-80 23:09:00 Test Item Value Reference Range Interpretation Comments WBC (test code = WBC) 12.6 3.7-10.4 [facility]YblnvbbHQFKEAPZOQ1016-57-19 23:09:00 Test Item Value Reference Range Interpretation Comments RBC (test code = RBC) 3.13 4.20-5.40 [facility] CenterXmnkgwmMGEDSAYTTB2337-08-85 23:09:00 Test Item Value Reference Range Interpretation Comments MCV (test code = MCV) 85.6 80.0-98.0 [facility] CenterEnifnyjMUHXJTLIWZ0552-45-71 23:09:00 Test Item Value Reference Range Interpretation Comments MCH (test code = MCH) 27.2 pg 27.0-31.0 [facility] CenterCqgvtxjNCNOTYYJFU6172-57-51 23:09:00 Test Item Value Reference Range Interpretation Comments MCHC (test code = MCHC) 31.8 32.0-36.0 [facility]2022-10-21 23:09:00 Test Item Value Reference Range Interpretation Comments AST (test code = AST) 8 See_Comment [Auto mated message] The system which ge nerated this result transmit delaney reference range : <=37. The reference range was not used to interpr et this result as kiarra l/abnormal. [facility] HospitalQuzvruhJSETVDOZXL9578-48-80 23:09:00 Test Item Value Reference Range Interpretation Comments RDW (test code = RDW) 12.4 11.5-14.5 [facility] CenterJsrmhicOWTFHWJDKP0658-69-78 23:09:00 Test Item Value Reference Range Interpretation Comments Platelet (test code = Platelet) 373 133-450 [facility] CenterYxeaydkYFVJANOEHG7492-60-79 23:09:00 Test Item Value Reference Range Interpretation Comments MPV (test code = MPV) 8.2 7.4-10.4 [facility] CenterIPENEM:SUSC:PT:ISOLATE:ORDQN:[id number] 23:09:00 Test Item Value Reference Range Interpretation Comments Culture: Blood Aerobic Bottle: (test code = Staphylococcus epidermidis Culture: Blood) . Critical Results Called To: Gabe CHONG At: 06/25/2022 06:39 Called By: CJB Read Back Ok . Critical Results Called To: DR. LOZOYA AND AChanel CHRISTIAN RN At: 06/25/2022 07:20 Called By: ELIAS Read Back Ok [facility] CenterIPENEM:SUSC:PT:ISOLATE:ORDQN:[id number] 23:09:00 Test Item Value Reference Range Interpretation Comments Staphylococcus Staphylococcus epidermidis (test code epidermidis = Staphylococcus epidermidis) [facility] CenterAqvcpcaJHDIDPKEWO5621-00-95 23:09:00 Test Item Value Reference Range Interpretation Comments HIV Ag/Ab 4th Gen Negative *NA*(06/23/22 (test code = HIV 6:09 PM) Ag/Ab 4th Gen) [facility] CenterHjlfpmdUOTQWJQKXD7797-86-73 23:09:00 Test Item Value Reference Range Interpretation Comments RPR (test code = RPR) Non Reactive (06/23/22 6:09 PM) [facility] CenterDnmcitmAXUQARFLBF4887-06-53 23:09:00 Test Item Value Reference Range Interpretation Comments Hep A IgM (test code = Hep A NON-REACTIVE IgM) [facility] CenterUqbsszyIQCAPNBKLT2685-37-96 23:09:00 Test Item Value Reference Range Interpretation Comments Hep Bs Ag (test code = Hep Bs NON-REACTIVE Ag) [facility] CenterCumhokqYRDCJCVRAN5596-61-56 23:09:00 Test Item Value Reference Range Interpretation Comments Hep B Core IgM (test code = Hep NON-REACTIVE B Core IgM) [facility]2022-10-21 23:09:00 Test Item Value Reference Range Interpretation Comments Alk Phos (test code = Alk Phos) 105 39-136 [facility] CenterBoaltxyYBYKBFWVKZ7296-85-88 23:09:00 Test Item Value Reference Range Interpretation Comments Hep C Ab (test code = Hep C Ab) NON-REACTIVE [facility] CenterTxainxmOCPWNJEVPB6370-70-55 23:09:00 Test Item Value Reference Range Interpretation Comments Hep Signal to Cut-Off (test code = Hep 0.07 1 Signal to Cut-Off) [facility] CenterEvvdzpuLHTIPIFDEO4956-50-37 23:09:00 Test Item Value Reference Range Interpretation Comments HIV Ag/Ab 4th Gen Negative *NA*(06/23/22 (test code = HIV 6:09 PM) Ag/Ab 4th Gen) [facility] CenterOfbqatwPASXXRJXOP9680-85-20 23:09:00 Test Item Value Reference Range Interpretation Comments RPR (test code = RPR) Non Reactive (06/23/22 6:09 PM) [facility] Ccnuh1260-67-56 23:09:00 Test Item Value Reference Range Interpretation Comments Culture: Blood Anaerobic Bottle: (test code = Staphylococcus epidermidis Culture: Blood) , Refer To Culture # [id number] for call notification. [facility] UOKAN8802-71-99 23:09:00 Test Item Value Reference Range Interpretation Comments Bili Total (test code = Bili Total) 0.3 0.2-1.3 [facility]2022-10-21 23:09:00 Test Item Value Reference Range Interpretation Comments Bili Direct (test code no gt See_Comment [Aut omated message] The = Bili Direct) system which generated this result tra nsmitted reference range : <=0.3. The reference r kyle was not used to int erpret this result as kiarra l/abnormal. [facility]2022-10-21 23:09:00 Test Item Value Reference Range Interpretation Comments Bili Indirect Unable to See_Comment [Automated (test code = Bili Calculate message] T he system Indirect) which generated this result transmitted reference range : <=1.0. The reference range was not used to interpret this result as normal/abnormal . [facility] HospitalNretyliNZDOCOJVH6613-67-89 23:09:00 Test Item Value Reference Range Interpretation Comments Total Protein (test code = Total 6.5 6.4-8.4 Protein) [facility] HospitalFoajvfiYZLUZWAZL3203-45-17 23:09:00 Test Item Value Reference Range Interpretation Comments Albumin Lvl (test code = Albumin Lvl) 2.2 3.5-5.0 [facility] HospitalKttemmaRLDAINXHV0913-16-57 23:09:00 Test Item Value Reference Range Interpretation Comments Globulin (test code = Globulin) 4.3 2.7-4.2 [facility] HospitalDedwqkjHAXWFLQFO4656-20-68 23:09:00 Test Item Value Reference Range Interpretation Comments A/G Ratio (test code = A/G Ratio) 0.5 1 0.7-1.6 [facility] HospitalEdqzplzRTAAUDYUC4911-06-93 23:09:00 Test Item Value Reference Range Interpretation Comments ALT (test code = ALT) 10 See_Comment [Auto mated message] The system which ge nerated this result transmit delaney reference range : <=65. The reference range was not used to interpr et this result as kiarra l/abnormal. [facility] CenterXwhiohwDHPILDCIN9396-32-73 23:09:00 Test Item Value Reference Range Interpretation Comments AST (test code = AST) 8 See_Comment [Auto mated message] The system which ge nerated this result transmit delaney reference range : <=37. The reference range was not used to interpr et this result as kiarra l/abnormal. [facility] CenterImnfhrmHMOIHAIPB6082-67-60 23:09:00 Test Item Value Reference Range Interpretation Comments Alk Phos (test code = Alk Phos) 105 39-136 [facility] HospitalGsdeiciYSOLFNTNN5329-50-30 23:09:00 Test Item Value Reference Range Interpretation Comments Bili Total (test code = Bili Total) 0.3 0.2-1.3 [facility] HospitalEvfbyozFCZQUCBFJ3488-38-48 23:09:00 Test Item Value Reference Range Interpretation Comments Bili Direct (test code no gt See_Comment [Aut omated message] The = Bili Direct) system which generated this result tra nsmitted reference range : <=0.3. The reference r kyle was not used to int erpret this result as kiarra l/abnormal. [facility] CenterFqwpllvTAFZUNAZT2822-61-75 23:09:00 Test Item Value Reference Range Interpretation Comments Bili Indirect Unable to See_Comment [Automated (test code = Bili Calculate message] T he system Indirect) which generated this result transmitted reference range : <=1.0. The reference range was not used to interpret this result as normal/abnormal . [facility] CenterAriywhdUVCJVQEGV8950-06-66 23:09:00 Test Item Value Reference Range Interpretation Comments Vitamin B12 Lvl (test code = Vitamin 215 751-1725 B12 Lvl) [facility] HospitalBtxyoibAVRCIWVZY4490-76-41 23:09:00 Test Item Value Reference Range Interpretation Comments Folate Lvl (test code = Folate Lvl) 3.7 [facility] HospitalAunizliJAYLNFYPH0774-26-76 23:09:00 Test Item Value Reference Range Interpretation Comments Ferritin Lvl (test code = Ferritin Lvl) 108 5-204 [facility] HospitalJleanjgQNNHSJMDB2908-19-70 23:09:00 Test Item Value Reference Range Interpretation Comments Iron (test code = Iron) 26 45-160 [facility] HospitalGhtlttgITGVZDLUP0402-21-77 23:09:00 Test Item Value Reference Range Interpretation Comments TIBC (test code = TIBC) 198 250-450 [facility] HospitalIyuocosDXGMQJFSU5444-80-71 23:09:00 Test Item Value Reference Range Interpretation Comments % Satur Fe (test code = % Satur Fe) 13 16-45 [facility]XcmctmxVDVGZESGWH5771-23-32 23:09:00 Test Item Value Reference Range Interpretation Comments Segs (test code = Segs) 68.9 45.0-75.0 [facility] HospitalDgxtlirWSKADRWRYQ0403-40-08 23:09:00 Test Item Value Reference Range Interpretation Comments Lymphocytes (test code = Lymphocytes) 22.4 20.0-40.0 [facility] HospitalPefugikYAPABRYRHB3510-57-54 23:09:00 Test Item Value Reference Range Interpretation Comments Monocytes (test code = Monocytes) 5.7 2.0-12.0 [facility] HospitalWzlqainXNRBUOOUCX1205-98-94 23:09:00 Test Item Value Reference Range Interpretation Comments Eosinophils (test code = 2.6 See_Comment [A utomated message] The Eosinophils) system which ge nerated this result tra nsmitted reference range : <=4.0. The reference r kyle was not used to int erpret this result as normal/abnormal . [facility] HospitalAzpsqdjGZEOTYVGKJ4774-29-20 23:09:00 Test Item Value Reference Range Interpretation Comments Basophils (test code = 0.4 See_Comment [Aut omated message] The Basophils) system which ge nerated this result tra nsmitted reference range : <=1.0. The reference r kyle was not used to int erpret this result as normal/abnormal . [facility] HospitalPloojsjJXLGOWCTGQ1360-22-81 23:09:00 Test Item Value Reference Range Interpretation Comments Neutrophils # (test code = Neutrophils 8.7 1.5-8.1 #) [facility] HospitalGszqrayXUWPRUOGIL0463-81-43 23:09:00 Test Item Value Reference Range Interpretation Comments Lymphocytes # (test code = Lymphocytes 2.8 1.0-5.5 #) [facility] HospitalUpalvkdBJTRNHRSIW6638-49-99 23:09:00 Test Item Value Reference Range Interpretation Comments Monocytes # (test code 0.7 See_Comment [Aut omated message] The = Monocytes #) system which generated this result tra nsmitted reference range : <=0.8. The reference r kyle was not used to int erpret this result as normal/abnormal . [place] 587612-10-21 23:09:00 Test Item Value Reference Range Interpretation Comments Eosinophils # (test code 0.3 See_Comment [A utomated message] The = Eosinophils #) system [employer] h generated this result tra nsmitted reference range : <=0.5. The reference r kyle was not used to int erpret this result as normal/abnormal . [facility] HospitalZvqwijiBLXINGOTDI8244-74-01 23:09:00 Test Item Value Reference Range Interpretation Comments WBC (test code = WBC) 12.6 3.7-10.4 [facility] HospitalHhyadszSQNRKUMVMU0171-00-52 23:09:00 Test Item Value Reference Range Interpretation Comments RBC (test code = RBC) 3.13 4.20-5.40 [facility] HospitalZlyjfcrCGGRERPLFQ5332-46-09 23:09:00 Test Item Value Reference Range Interpretation Comments MCV (test code = MCV) 85.6 80.0-98.0 [facility] HospitalNbjldsaBYGKWHDNYU6299-86-68 23:09:00 Test Item Value Reference Range Interpretation Comments MCH (test code = MCH) 27.2 pg 27.0-31.0 [facility] HospitalQylqwncHMUZLAEEAJ8051-60-74 23:09:00 Test Item Value Reference Range Interpretation Comments MCHC (test code = MCHC) 31.8 32.0-36.0 [facility] HospitalJgwhaeeQSPIRNNAGH3709-69-73 23:09:00 Test Item Value Reference Range Interpretation Comments RDW (test code = RDW) 12.4 11.5-14.5 [facility] HospitalWudeiedVIDITLBPQN8443-74-23 23:09:00 Test Item Value Reference Range Interpretation Comments Platelet (test code = Platelet) 373 133-450 [facility] HospitalEnxpfskGCVTCSYUTU2720-78-69 23:09:00 Test Item Value Reference Range Interpretation Comments MPV (test code = MPV) 8.2 7.4-10.4 [facility]IPENEM:SUSC:PT:ISOLATE:ORDQN:[id number] 23:09:00 Test Item Value Reference Range Interpretation Comments Culture: Blood Aerobic Bottle: (test code = Staphylococcus epidermidis Culture: Blood) . Critical Results Called To: Gabe CHONG At: 06/25/2022 06:39 Called By: CJB Read Back Ok . Critical Results Called To: DR. LOZOYA ALEXIS CHRISTIAN RN At: 06/25/2022 07:20 Called By: ELIAS Read Back Ok [facility]IPENEM:SUSC:PT:ISOLATE:ORDQN:[id number] 23:09:00 Test Item Value Reference Range Interpretation Comments Staphylococcus Staphylococcus epidermidis (test code epidermidis = Staphylococcus epidermidis) [facility] CenterMqqrdvoNWSTOQVIJD4438-84-74 23:09:00 Test Item Value Reference Range Interpretation Comments HIV Ag/Ab 4th Gen Negative *NA*(06/23/22 (test code = HIV 6:09 PM) Ag/Ab 4th Gen) [facility] CenterBzggvciKOCBUQSRTW5206-60-06 23:09:00 Test Item Value Reference Range Interpretation Comments RPR (test code = RPR) Non Reactive (06/23/22 6:09 PM) [facility] CenterBwgmnweUTEKNCURPR5093-67-18 23:09:00 Test Item Value Reference Range Interpretation Comments Hep A IgM (test code = Hep A NON-REACTIVE IgM) [facility]2022-10-21 23:09:00 Test Item Value Reference Range Interpretation Comments Vitamin B12 Lvl (test code = Vitamin 276 B12 Lvl) [facility]2022-10-21 23:09:00 Test Item Value Reference Range Interpretation Comments Folate Lvl (test code = Folate Lvl) 3.7 [facility]2022-10-21 23:09:00 Test Item Value Reference Range Interpretation Comments Ferritin Lvl (test code = Ferritin Lvl) 108 5-204 [facility]2022-10-21 23:09:00 Test Item Value Reference Range Interpretation Comments Iron (test code = Iron) 26 [facility]2022-10-21 23:09:00 Test Item Value Reference Range Interpretation Comments TIBC (test code = TIBC) 198 [facility]2022-10-21 23:09:00 Test Item Value Reference Range Interpretation Comments % Satur Fe (test code = % Satur Fe) 13 [facility]2022-10-21 23:09:00 Test Item Value Reference Range Interpretation Comments Glucose Lvl (test code = Glucose Lvl) 98 70-99 [facility]2022-10-21 23:09:00 Test Item Value Reference Range Interpretation Comments BUN (test code = BUN) 12 - [facility]2022-10-21 23:09:00 Test Item Value Reference Range Interpretation Comments Creatinine Lvl (test code = Creatinine 0.39 0.50-1.40 Lvl) [facility] CenterWdphihvEVVJFNECXD3746-11-43 23:09:00 Test Item Value Reference Range Interpretation Comments Hep Bs Ag (test code = Hep Bs NON-REACTIVE Ag) [facility]2022-10-21 23:09:00 Test Item Value Reference Range Interpretation Comments Sodium Lvl (test code = Sodium Lvl) 134 135-145 [place] 604762-10-21 23:09:00 Test Item Value Reference Range Interpretation Comments Potassium Lvl (test code = Potassium 3.5 3.5-5.1 Lvl) [facility] CentermySh[facility]Club[facility] GNLJW4025-10-51 23:09:00 Test Item Value Reference Range Interpretation Comments Chloride Lvl (test code = Chloride Lvl) 102 95-109 [facility] Centerm[facility] TFUQF8494-43-66 23:09:00 Test Item Value Reference Range Interpretation Comments CO2 (test code = CO2) 23 24-32 [place] 604762-10-21 23:09:00 Test Item Value Reference Range Interpretation Comments AGAP (test code = AGAP) 12.5 10.0-20.0 [facility]erm[facility] HPBBW4549-66-07 23:09:00 Test Item Value Reference Range Interpretation Comments Calcium Lvl (test code = Calcium Lvl) 9.2 8.5-10.5 [facility]erm[facility] [id number] 23:09:00 Test Item Value Reference Range Interpretation Comments eGFR (test code = eGFR) 118 [place] 604762-10-21 23:09:00 Test Item Value Reference Range Interpretation Comments Magnesium Lvl (test code = Magnesium 2.0 1.8-2.4 Lvl) [facility]2022-10-21 23:09:00 Test Item Value Reference Range Interpretation Comments Phosphorus (test code = Phosphorus) 2.5 2.5-4.5 [place] 604762-10-21 23:09:00 Test Item Value Reference Range Interpretation Comments Total Protein (test code = Total 6.5 6.4-8.4 Protein) [facility] CenterTkddjniPKOWITUVNU4605-55-17 23:09:00 Test Item Value Reference Range Interpretation Comments Hep B Core IgM (test code = Hep NON-REACTIVE B Core IgM) [place] 604762-10-21 23:09:00 Test Item Value Reference Range Interpretation Comments Albumin Lvl (test code = Albumin Lvl) 2.2 3.5-5.0 [facility]2022-10-21 23:09:00 Test Item Value Reference Range Interpretation Comments Globulin (test code = Globulin) 4.3 2.7-4.2 [facility] [id number] 23:09:00 Test Item Value Reference Range Interpretation Comments A/G Ratio (test code = A/G Ratio) 0.5 1 0.7-1.6 [facility] [id number] 23:09:00 Test Item Value Reference Range Interpretation Comments ALT (test code = ALT) 10 See_Comment [Auto mated message] The system which ge nerated this result transmit delaney reference range : <=65. The reference range was not used to interpr et this result as kiarra l/abnormal. [facility] [id number] 23:09:00 Test Item Value Reference Range Interpretation Comments AST (test code = AST) 8 See_Comment [Auto mated message] The system which ge nerated this result transmit delaney reference range : <=37. The reference range was not used to interpr et this result as kiarra l/abnormal. [facility] [id number] 23:09:00 Test Item Value Reference Range Interpretation Comments Alk Phos (test code = Alk Phos) 105 39-136 [facility] [id number] 23:09:00 Test Item Value Reference Range Interpretation Comments Bili Total (test code = Bili Total) 0.3 0.2-1.3 [facility] [id number] 23:09:00 Test Item Value Reference Range Interpretation Comments Bili Direct (test code no gt See_Comment [Aut omated message] The = Bili Direct) system which generated this result tra nsmitted reference range : <=0.3. The reference r kyle was not used to int erpret this result as kiarra l/abnormal. [facility] CenterBobber Interactive Corporation [id number] 23:09:00 Test Item Value Reference Range Interpretation Comments Bili Indirect Unable to See_Comment [Automated (test code = Bili Calculate message] T he system Indirect) which generated this result transmitted reference range : <=1.0. The reference range was not used to interpret this result as normal/abnormal . [facility] CenterRwmfwkbBBEZEOLKM9120-97-07 23:09:00 Test Item Value Reference Range Interpretation Comments Total Protein (test code = Total 6.5 6.4-8.4 Protein) [facility] CenterYmshxwiSWZJCGIRXW6472-45-44 23:09:00 Test Item Value Reference Range Interpretation Comments Hep C Ab (test code = Hep C Ab) NON-REACTIVE [facility] CenterAexcnpdMPBBXHJZM2638-71-77 23:09:00 Test Item Value Reference Range Interpretation Comments Albumin Lvl (test code = Albumin Lvl) 2.2 3.5-5.0 [facility] CenterDrxnqejCNRVZECFX7611-11-11 23:09:00 Test Item Value Reference Range Interpretation Comments Globulin (test code = Globulin) 4.3 2.7-4.2 [facility] HospitalFqrywzbVGKJAVKPM5166-31-56 23:09:00 Test Item Value Reference Range Interpretation Comments A/G Ratio (test code = A/G Ratio) 0.5 1 0.7-1.6 [facility] HospitalJiobshhUDNSWZQGV1774-79-97 23:09:00 Test Item Value Reference Range Interpretation Comments ALT (test code = ALT) 10 See_Comment [Auto mated message] The system which ge nerated this result transmit delaney reference range : <=65. The reference range was not used to interpr et this result as kiarra l/abnormal. [facility] CenterOrfmxeuVJQLMBLEL3304-18-21 23:09:00 Test Item Value Reference Range Interpretation Comments AST (test code = AST) 8 See_Comment [Auto mated message] The system which ge nerated this result transmit delaney reference range : <=37. The reference range was not used to interpr et this result as kiarra l/abnormal. [facility] CenterAjhzaqvXTVZLUPKS0758-05-97 23:09:00 Test Item Value Reference Range Interpretation Comments Alk Phos (test code = Alk Phos) 105 39-136 [facility] HospitalTxlzbugYLLXVBFCN6733-03-74 23:09:00 Test Item Value Reference Range Interpretation Comments Bili Total (test code = Bili Total) 0.3 0.2-1.3 [facility] CenterBquxyrxUVZOXPBWF5087-73-86 23:09:00 Test Item Value Reference Range Interpretation Comments Bili Direct (test code no gt See_Comment [Aut omated message] The = Bili Direct) system which generated this result tra nsmitted reference range : <=0.3. The reference r kyle was not used to int erpret this result as kiarra l/abnormal. [facility] HospitalSaempesHCXSSDBWL7621-58-17 23:09:00 Test Item Value Reference Range Interpretation Comments Bili Indirect Unable to See_Comment [Automated (test code = Bili Calculate message] T he system Indirect) which generated this result transmitted reference range : <=1.0. The reference range was not used to interpret this result as normal/abnormal . [facility] HospitalNhygbjgETNJVESQR6952-88-08 23:09:00 Test Item Value Reference Range Interpretation Comments Vitamin B12 Lvl (test code = Vitamin 891 129-8984 B12 Lvl) [facility] CenterOfdypclCTMPDBGMUQ3791-69-77 23:09:00 Test Item Value Reference Range Interpretation Comments Hep Signal to Cut-Off (test code = Hep 0.07 1 Signal to Cut-Off) [facility] HospitalKrnfhicXAIMRTTFC7390-54-24 23:09:00 Test Item Value Reference Range Interpretation Comments Folate Lvl (test code = Folate Lvl) 3.7 [facility] HospitalCkqpcngDWPFTBNHQ5986-94-15 23:09:00 Test Item Value Reference Range Interpretation Comments Ferritin Lvl (test code = Ferritin Lvl) 108 5-204 [facility] HospitalXbkxaosZQFWYZRSF4309-90-24 23:09:00 Test Item Value Reference Range Interpretation Comments Iron (test code = Iron) 26 45-160 [facility] HospitalQtfvvffKJXWOWSSY9657-35-75 23:09:00 Test Item Value Reference Range Interpretation Comments TIBC (test code = TIBC) 198 250-450 [facility] HospitalAgsouczKNSXOINOE4214-51-68 23:09:00 Test Item Value Reference Range Interpretation Comments % Satur Fe (test code = % Satur Fe) 13 16-45 [facility] HospitalAgcxrzxFNJQUZNXPW4125-73-11 23:09:00 Test Item Value Reference Range Interpretation Comments Segs (test code = Segs) 68.9 45.0-75.0 [place] 587612-10-21 23:09:00 Test Item Value Reference Range Interpretation Comments Lymphocytes (test code = Lymphocytes) 22.4 20.0-40.0 [facility] HospitalPjlvqzoCXVUJZYOSK7178-77-10 23:09:00 Test Item Value Reference Range Interpretation Comments Monocytes (test code = Monocytes) 5.7 2.0-12.0 [facility] HospitalMekmuqiAGQRVOCRYE6000-26-01 23:09:00 Test Item Value Reference Range Interpretation Comments Eosinophils (test code = 2.6 See_Comment [A utomated message] The Eosinophils) system which ge nerated this result tra nsmitted reference range : <=4.0. The reference r kyle was not used to int erpret this result as normal/abnormal . [facility] HospitalEueajkvSBDVUTVRUM9809-81-52 23:09:00 Test Item Value Reference Range Interpretation Comments Basophils (test code = 0.4 See_Comment [Aut omated message] The Basophils) system which ge nerated this result tra nsmitted reference range : <=1.0. The reference r kyle was not used to int erpret this result as normal/abnormal . [facility] CenterFpwdbkrXMTKGBRQEJ6215-98-41 23:09:00 Test Item Value Reference Range Interpretation Comments HIV Ag/Ab 4th Gen Negative *NA*(06/23/22 (test code = HIV 6:09 PM) Ag/Ab 4th Gen) [place] 587612-10-21 23:09:00 Test Item Value Reference Range Interpretation Comments Neutrophils # (test code = Neutrophils 8.7 1.5-8.1 #) [facility] HospitalTsteiplQESVKRWGES5191-12-17 23:09:00 Test Item Value Reference Range Interpretation Comments Lymphocytes # (test code = Lymphocytes 2.8 1.0-5.5 #) [facility] HospitalPbdofbcCSOXBDWTQJ4946-61-83 23:09:00 Test Item Value Reference Range Interpretation Comments Monocytes # (test code 0.7 See_Comment [Aut omated message] The = Monocytes #) system which generated this result tra nsmitted reference range : <=0.8. The reference r kyle was not used to int erpret this result as normal/abnormal . [facility] HospitalFpddlprENPYGKDVSE9540-87-87 23:09:00 Test Item Value Reference Range Interpretation Comments Eosinophils # (test code 0.3 See_Comment [A utomated message] The = Eosinophils #) system whic h generated this result tra nsmitted reference range : <=0.5. The reference r kyle was not used to int erpret this result as normal/abnormal . [facility] HospitalNfqxwwxAJIXSLZEUS4031-14-32 23:09:00 Test Item Value Reference Range Interpretation Comments WBC (test code = WBC) 12.6 3.7-10.4 [facility]FlewhhqIRPICLEYAA2804-02-57 23:09:00 Test Item Value Reference Range Interpretation Comments RBC (test code = RBC) 3.13 4.20-5.40 [facility] HospitalOpnmkauAWQDSDWCFU1768-84-35 23:09:00 Test Item Value Reference Range Interpretation Comments MCV (test code = MCV) 85.6 80.0-98.0 [facility] HospitalZbkhfroQAACRDCTON7776-79-90 23:09:00 Test Item Value Reference Range Interpretation Comments MCH (test code = MCH) 27.2 pg 27.0-31.0 [facility] HospitalGbkezyxQAPQZFKMPB8376-74-87 23:09:00 Test Item Value Reference Range Interpretation Comments MCHC (test code = MCHC) 31.8 32.0-36.0 [facility] HospitalJkcuydcKIBYMTGVWW3430-53-87 23:09:00 Test Item Value Reference Range Interpretation Comments RDW (test code = RDW) 12.4 11.5-14.5 [facility] CenterHtfafceCXOIGNRPIP4577-31-53 23:09:00 Test Item Value Reference Range Interpretation Comments RPR (test code = RPR) Non Reactive (06/23/22 6:09 PM) [facility] HospitalXrlsayzMAPVZAHGRS2037-73-46 23:09:00 Test Item Value Reference Range Interpretation Comments Platelet (test code = Platelet) 373 133-450 [facility] HospitalNfwniphYHODMRGPKF6853-91-80 23:09:00 Test Item Value Reference Range Interpretation Comments MPV (test code = MPV) 8.2 7.4-10.4 [facility]IPENEM:SUSC:PT:ISOLATE:ORDQN:[id number] 23:09:00 Test Item Value Reference Range Interpretation Comments Culture: Blood Aerobic Bottle: (test code = Staphylococcus epidermidis Culture: Blood) . Critical Results Called To: Gabe CHONG At: 06/25/2022 06:39 Called By: YAKOV Read Back Ok . Critical Results Called To: DR. LOZOYA AND Paolo CHRISTIAN RN At: 06/25/2022 07:20 Called By: ELIAS Read Back Ok [facility]IPENEM:SUSC:PT:ISOLATE:ORDQN:[id number] 23:09:00 Test Item Value Reference Range Interpretation Comments Staphylococcus Staphylococcus epidermidis (test code epidermidis = Staphylococcus epidermidis) [facility] CenterYwyceqpRTNZDTLPNF8029-27-86 23:09:00 Test Item Value Reference Range Interpretation Comments HIV Ag/Ab 4th Gen Negative *NA*(06/23/22 (test code = HIV 6:09 PM) Ag/Ab 4th Gen) [facility] CenterFrqypweMDQDAAITZQ5435-14-20 23:09:00 Test Item Value Reference Range Interpretation Comments RPR (test code = RPR) Non Reactive (06/23/22 6:09 PM) [facility] CenterSbenczwDATKCUNGWE9747-59-39 23:09:00 Test Item Value Reference Range Interpretation Comments Hep A IgM (test code = Hep A NON-REACTIVE IgM) [facility] CenterPfdnpqqSWOADCFMTD3232-77-60 23:09:00 Test Item Value Reference Range Interpretation Comments Hep Bs Ag (test code = Hep Bs NON-REACTIVE Ag) [facility] CenterDnaguenPCWSCRBNJZ3417-61-20 23:09:00 Test Item Value Reference Range Interpretation Comments Hep B Core IgM (test code = Hep NON-REACTIVE B Core IgM) [facility] CenterSurazdjATAYKHSQJW6615-24-56 23:09:00 Test Item Value Reference Range Interpretation Comments Hep C Ab (test code = Hep C Ab) NON-REACTIVE [facility] [id number] 23:09:00 Test Item Value Reference Range Interpretation Comments Culture: Blood Anaerobic Bottle: (test code = Staphylococcus epidermidis Culture: Blood) , Refer To Culture # [phone] for call notification. [facility] CenterPutzmirTVDPFMTATS0675-68-12 23:09:00 Test Item Value Reference Range Interpretation Comments Hep Signal to Cut-Off (test code = Hep 0.07 1 Signal to Cut-Off) [facility] CenterQocxphdASJMDDOQFI0260-26-18 23:09:00 Test Item Value Reference Range Interpretation Comments HIV Ag/Ab 4th Gen Negative *NA*(06/23/22 (test code = HIV 6:09 PM) Ag/Ab 4th Gen) [facility] CenterEdlabueQLFOTDTLHS4331-43-22 23:09:00 Test Item Value Reference Range Interpretation Comments RPR (test code = RPR) Non Reactive (06/23/22 6:09 PM) [facility]allt[facility]: [id number] 23:09:00 Test Item Value Reference Range Interpretation Comments Culture: Blood Anaerobic Bottle: (test code = Staphylococcus epidermidis Culture: Blood) , Refer To Culture # [id number] for call notification. [facility]2022-10-21 23:09:00 Test Item Value Reference Range Interpretation Comments Vitamin B12 Lvl (test code = Vitamin 276 B12 Lvl) [facility]2022-10-21 23:09:00 Test Item Value Reference Range Interpretation Comments Folate Lvl (test code = Folate Lvl) 3.7 [place] 153112-10-21 23:09:00 Test Item Value Reference Range Interpretation Comments Ferritin Lvl (test code = Ferritin Lvl) 108 5-204 [facility]2022-10-21 23:09:00 Test Item Value Reference Range Interpretation Comments Iron (test code = Iron) 26 [facility]2022-10-21 23:09:00 Test Item Value Reference Range Interpretation Comments TIBC (test code = TIBC) 198 [facility]2022-10-21 23:09:00 Test Item Value Reference Range Interpretation Comments % Satur Fe (test code = % Satur Fe) 13 [facility]2022-10-21 23:09:00 Test Item Value Reference Range Interpretation Comments Glucose Lvl (test code = Glucose Lvl) 98 70-99 [facility]2022-10-21 23:09:00 Test Item Value Reference Range Interpretation Comments BUN (test code = BUN) 12 7-22 [facility]2022-10-21 23:09:00 Test Item Value Reference Range Interpretation Comments Creatinine Lvl (test code = Creatinine 0.39 0.50-1.40 Lvl) [facility]2022-10-21 23:09:00 Test Item Value Reference Range Interpretation Comments Sodium Lvl (test code = Sodium Lvl) 134 135-145 [facility]2022-10-21 23:09:00 Test Item Value Reference Range Interpretation Comments Potassium Lvl (test code = Potassium 3.5 3.5-5.1 Lvl) [place] 604762-10-21 23:09:00 Test Item Value Reference Range Interpretation Comments Chloride Lvl (test code = Chloride Lvl) 102 95-109 [place] 604762-10-21 23:09:00 Test Item Value Reference Range Interpretation Comments CO2 (test code = CO2) 23 24-32 [place] 604762-10-21 23:09:00 Test Item Value Reference Range Interpretation Comments AGAP (test code = AGAP) 12.5 10.0-20.0 [place] 604762-10-21 23:09:00 Test Item Value Reference Range Interpretation Comments Calcium Lvl (test code = Calcium Lvl) 9.2 8.5-10.5 [place] 604762-10-21 23:09:00 Test Item Value Reference Range Interpretation Comments eGFR (test code = eGFR) 118 [place] 604762-10-21 23:09:00 Test Item Value Reference Range Interpretation Comments Magnesium Lvl (test code = Magnesium 2.0 1.8-2.4 Lvl) [place] 604762-10-21 23:09:00 Test Item Value Reference Range Interpretation Comments Phosphorus (test code = Phosphorus) 2.5 2.5-4.5 [place] 604762-10-21 23:09:00 Test Item Value Reference Range Interpretation Comments Total Protein (test code = Total 6.5 6.4-8.4 Protein) [place] 604762-10-21 23:09:00 Test Item Value Reference Range Interpretation Comments Albumin Lvl (test code = Albumin Lvl) 2.2 3.5-5.0 [place] 604762-10-21 23:09:00 Test Item Value Reference Range Interpretation Comments Globulin (test code = Globulin) 4.3 2.7-4.2 [place] 604762-10-21 23:09:00 Test Item Value Reference Range Interpretation Comments A/G Ratio (test code = A/G Ratio) 0.5 1 0.7-1.6 [place] [address]-10-21 23:09:00 Test Item Value Reference Range Interpretation Comments ALT (test code = ALT) 10 See_Comment [Auto mated message] The system which ge nerated this result transmit delaney reference range : <=65. The reference range was not used to interpr et this result as kiarra l/abnormal. [place] 604762-10-21 23:09:00 Test Item Value Reference Range Interpretation Comments AST (test code = AST) 8 See_Comment [Auto mated message] The system which ge nerated this result transmit delaney reference range : <=37. The reference range was not used to interpr et this result as kiarra l/abnormal. [facility] [address] [id number] 23:09:00 Test Item Value Reference Range Interpretation Comments Alk Phos (test code = Alk Phos) 105 39-136 [facility] [address] [id number] 23:09:00 Test Item Value Reference Range Interpretation Comments Bili Total (test code = Bili Total) 0.3 0.2-1.3 [facility] [address] [id number] 23:09:00 Test Item Value Reference Range Interpretation Comments Bili Direct (test code no gt See_Comment [Aut omated message] The = Bili Direct) system which generated this result tra nsmitted reference range : <=0.3. The reference r kyle was not used to int erpret this result as kiarra l/abnormal. [facility] [address] [id number] 23:09:00 Test Item Value Reference Range Interpretation Comments Bili Indirect Unable to See_Comment [Automated (test code = Bili Calculate message] T he system Indirect) which generated this result transmitted reference range : <=1.0. The reference range was not used to interpret this result as normal/abnormal . [facility] KozwybcSENLJKSCD4255-94-82 23:09:00 Test Item Value Reference Range Interpretation Comments Total Protein (test code = Total 6.5 6.4-8.4 Protein) [facility]rz[facility]vbkMXSDSXGAU3650-71-99 23:09:00 Test Item Value Reference Range Interpretation Comments Albumin Lvl (test code = Albumin Lvl) 2.2 3.5-5.0 [facility] AymwsucPKIDGMCDS2936-13-07 23:09:00 Test Item Value Reference Range Interpretation Comments Globulin (test code = Globulin) 4.3 2.7-4.2 [facility] JikicnlVFEFWMIUT1439-01-22 23:09:00 Test Item Value Reference Range Interpretation Comments A/G Ratio (test code = A/G Ratio) 0.5 1 0.7-1.6 [facility] CenterIqwxtkrOIVRWMTQK0917-68-17 23:09:00 Test Item Value Reference Range Interpretation Comments ALT (test code = ALT) 10 See_Comment [Auto mated message] The system which ge nerated this result transmit delaney reference range : <=65. The reference range was not used to interpr et this result as kiarra l/abnormal. [facility] CefqaqoDQQCUJFGT6091-04-70 23:09:00 Test Item Value Reference Range Interpretation Comments AST (test code = AST) 8 See_Comment [Auto mated message] The system which ge nerated this result transmit delaney reference range : <=37. The reference range was not used to interpr et this result as kiarra l/abnormal. [facility] DercnvqBWCLIRPDW8858-50-91 23:09:00 Test Item Value Reference Range Interpretation Comments Alk Phos (test code = Alk Phos) 105 39-136 [facility] CenterAifnwosFDNZAFNVU0417-83-25 23:09:00 Test Item Value Reference Range Interpretation Comments Bili Total (test code = Bili Total) 0.3 0.2-1.3 [facility] JngtnwfVHTGYRFFR0209-06-20 23:09:00 Test Item Value Reference Range Interpretation Comments Bili Direct (test code no gt See_Comment [Aut omated message] The = Bili Direct) system which generated this result tra nsmitted reference range : <=0.3. The reference r kyle was not used to int erpret this result as kiarra l/abnormal. [facility] UezgzieLYTBYGPHN0003-47-57 23:09:00 Test Item Value Reference Range Interpretation Comments Bili Indirect Unable to See_Comment [Automated (test code = Bili Calculate message] T he system Indirect) which generated this result transmitted reference range : <=1.0. The reference range was not used to interpret this result as normal/abnormal . [facility] RfjrtbvBYZBUGOMM3177-38-50 23:09:00 Test Item Value Reference Range Interpretation Comments Vitamin B12 Lvl (test code = Vitamin 559 346-3765 B12 Lvl) [facility] CenterInidpueKTUOPKZOV9491-88-79 23:09:00 Test Item Value Reference Range Interpretation Comments Folate Lvl (test code = Folate Lvl) 3.7 [facility] YamwqjvLSEHTPAUR9758-08-82 23:09:00 Test Item Value Reference Range Interpretation Comments Ferritin Lvl (test code = Ferritin Lvl) 108 5-204 [facility] CenterLwazzveWIUEUZVQO5465-65-83 23:09:00 Test Item Value Reference Range Interpretation Comments Iron (test code = Iron) 26 45-160 [facility]PolljqkGDHJRUOIO3406-70-84 23:09:00 Test Item Value Reference Range Interpretation Comments TIBC (test code = TIBC) 198 250-450 [facility] HospitalDuvjhklPWLMOTSAV2137-43-48 23:09:00 Test Item Value Reference Range Interpretation Comments % Satur Fe (test code = % Satur Fe) 13 16-45 [facility]TjseycqCGNWLXQCOP5892-62-02 23:09:00 Test Item Value Reference Range Interpretation Comments Segs (test code = Segs) 68.9 45.0-75.0 [facility] HospitalBybdihqZNHZALSJSN9220-10-58 23:09:00 Test Item Value Reference Range Interpretation Comments Lymphocytes (test code = Lymphocytes) 22.4 20.0-40.0 [facility] HospitalAytjlbcHFXDFQIFMH5594-30-71 23:09:00 Test Item Value Reference Range Interpretation Comments Monocytes (test code = Monocytes) 5.7 2.0-12.0 [facility] HospitalVvkybzzZEBHJKNDLB5566-69-36 23:09:00 Test Item Value Reference Range Interpretation Comments Eosinophils (test code = 2.6 See_Comment [A utomated message] The Eosinophils) system which ge nerated this result tra nsmitted reference range : <=4.0. The reference r kyle was not used to int erpret this result as normal/abnormal . [facility] HospitalNskktikFBWRFBFKHE9414-27-61 23:09:00 Test Item Value Reference Range Interpretation Comments Basophils (test code = 0.4 See_Comment [Aut omated message] The Basophils) system which ge nerated this result tra nsmitted reference range : <=1.0. The reference r kyle was not used to int erpret this result as normal/abnormal . [facility] HospitalMaprbrdGHPCWOVQEX4526-82-86 23:09:00 Test Item Value Reference Range Interpretation Comments Neutrophils # (test code = Neutrophils 8.7 1.5-8.1 #) [facility] HospitalYfzilhiGOHZMERYDS7407-26-97 23:09:00 Test Item Value Reference Range Interpretation Comments Lymphocytes # (test code = Lymphocytes 2.8 1.0-5.5 #) [facility] HospitalJetitxeQHZRTPWLCT1949-07-62 23:09:00 Test Item Value Reference Range Interpretation Comments Monocytes # (test code 0.7 See_Comment [Aut omated message] The = Monocytes #) system which generated this result tra nsmitted reference range : <=0.8. The reference r klye was not used to int erpret this result as normal/abnormal . [facility] HospitalTrrvxlzLQFDFSYQMM5290-77-32 23:09:00 Test Item Value Reference Range Interpretation Comments Eosinophils # (test code 0.3 See_Comment [A utomated message] The = Eosinophils #) system [employer]com[employer] h generated this result tra nsmitted reference range : <=0.5. The reference r kyle was not used to int erpret this result as normal/abnormal . [facility] HospitalTjfatwyZINQSSJUZZ6629-44-90 23:09:00 Test Item Value Reference Range Interpretation Comments WBC (test code = WBC) 12.6 3.7-10.4 [facility] HospitalVofjhtfJHLOUWTZZE0719-36-02 23:09:00 Test Item Value Reference Range Interpretation Comments RBC (test code = RBC) 3.13 4.20-5.40 [facility] HospitalQjmgmeaFYANQAPOZX1881-63-03 23:09:00 Test Item Value Reference Range Interpretation Comments MCV (test code = MCV) 85.6 80.0-98.0 [facility]HB[facility]UTVFDJ5384[facility]40[facility]39 23:09:00 Test Item Value Reference Range Interpretation Comments MCH (test code = MCH) 27.2 pg 27.0-31.0 [facility]DliplvxPUXKJNIWWM9844-53-45 23:09:00 Test Item Value Reference Range Interpretation Comments MCHC (test code = MCHC) 31.8 32.0-36.0 [facility] HospitalDwmxwzbCSTHLCRTOC4846-21-00 23:09:00 Test Item Value Reference Range Interpretation Comments RDW (test code = RDW) 12.4 11.5-14.5 [facility] HospitalBzszhupTPWXQGNKQE1595-83-56 23:09:00 Test Item Value Reference Range Interpretation Comments Platelet (test code = Platelet) 373 133-450 [facility] HospitalGxukixlCRIXMQZYMF7867-76-94 23:09:00 Test Item Value Reference Range Interpretation Comments MPV (test code = MPV) 8.2 7.4-10.4 [facility]IPENEM:SUSC:PT:ISOLATE:ORDQN:[id number] 23:09:00 Test Item Value Reference Range Interpretation Comments Culture: Blood Aerobic Bottle: (test code = Staphylococcus epidermidis Culture: Blood) . Critical Results Called To: Gabe Cantu [facility] [place]: [place]25[place] 06:39 Called By: YAKOV Read Back Ok . Critical Results Called To: DR. LOZOYA AND Paolo CHRISTIAN RN At: 06/25/2022 07:20 Called By: ELIAS Read Back Ok [facility]IP[facility]USC:PT:ISOLATE:ORDQN:[id number] 23:09:00 Test Item Value Reference Range Interpretation Comments Staphylococcus Staphylococcus epidermidis (test code epidermidis = Staphylococcus epidermidis) [facility] CenterEzycrkxYGMTHZIBHZ2492-37-54 23:09:00 Test Item Value Reference Range Interpretation Comments HIV Ag/Ab 4th Gen Negative *NA*(06/23/22 (test code = HIV 6:09 PM) Ag/Ab 4th Gen) [facility] CenterKqwprusANUKBFUWUU2113-37-89 23:09:00 Test Item Value Reference Range Interpretation Comments RPR (test code = RPR) Non Reactive (06/23/22 6:09 PM) [facility] CenterBiifjieRZMRKFVXPU3009-90-98 23:09:00 Test Item Value Reference Range Interpretation Comments Hep A IgM (test code = Hep A NON-REACTIVE IgM) [facility] CenterEuormdsYAOWZCBVVQ8475-50-56 23:09:00 Test Item Value Reference Range Interpretation Comments Hep Bs Ag (test code = Hep Bs NON-REACTIVE Ag) [facility] CenterSzjysmwIPJBFUOZRN4312-68-37 23:09:00 Test Item Value Reference Range Interpretation Comments Hep B Core IgM (test code = Hep NON-REACTIVE B Core IgM) [facility] CenterRcpnvheUSZHXDZVYA6796-29-99 23:09:00 Test Item Value Reference Range Interpretation Comments Hep C Ab (test code = Hep C Ab) NON-REACTIVE [facility] CenterAifoongRGOLQPTHGK3998-72-10 23:09:00 Test Item Value Reference Range Interpretation Comments Hep Signal to Cut-Off (test code = Hep 0.07 1 Signal to Cut-Off) [facility] CenterOnhbgzvNXMMFMFWPP5423-49-43 23:09:00 Test Item Value Reference Range Interpretation Comments HIV Ag/Ab 4th Gen Negative *NA*(06/23/22 (test code = HIV 6:09 PM) Ag/Ab 4th Gen) [facility] CenterGiyqvtnVNLAQALCUL1516-82-02 23:09:00 Test Item Value Reference Range Interpretation Comments RPR (test code = RPR) Non Reactive (06/23/22 6:09 PM) [facility] CenterCulture: [id number] 23:09:00 Test Item Value Reference Range Interpretation Comments Culture: Blood Anaerobic Bottle: (test code = Staphylococcus epidermidis Culture: Blood) , Refer To Culture # [id number] for call notification. [facility]2022-10-21 23:09:00 Test Item Value Reference Range Interpretation Comments Vitamin B12 Lvl (test code = Vitamin 276 B12 Lvl) [facility]2022-10-21 23:09:00 Test Item Value Reference Range Interpretation Comments Folate Lvl (test code = Folate Lvl) 3.7 [place] 153112-10-21 23:09:00 Test Item Value Reference Range Interpretation Comments Ferritin Lvl (test code = Ferritin Lvl) 108 5-204 [facility]2022-10-21 23:09:00 Test Item Value Reference Range Interpretation Comments Iron (test code = Iron) 26 [facility]2022-10-21 23:09:00 Test Item Value Reference Range Interpretation Comments TIBC (test code = TIBC) 198 [facility]2022-10-21 23:09:00 Test Item Value Reference Range Interpretation Comments % Satur Fe (test code = % Satur Fe) 13 [facility]2022-10-21 23:09:00 Test Item Value Reference Range Interpretation Comments Glucose Lvl (test code = Glucose Lvl) 98 70-99 [facility]2022-10-21 23:09:00 Test Item Value Reference Range Interpretation Comments BUN (test code = BUN) 12 7-22 [facility]2022-10-21 23:09:00 Test Item Value Reference Range Interpretation Comments Creatinine Lvl (test code = Creatinine 0.39 0.50-1.40 Lvl) [facility]2022-10-21 23:09:00 Test Item Value Reference Range Interpretation Comments Sodium Lvl (test code = Sodium Lvl) 134 135-145 [facility]2022-10-21 23:09:00 Test Item Value Reference Range Interpretation Comments Potassium Lvl (test code = Potassium 3.5 3.5-5.1 Lvl) [facility]2022-10-21 23:09:00 Test Item Value Reference Range Interpretation Comments Chloride Lvl (test code = Chloride Lvl) 102 95-109 [place] 604762-10-21 23:09:00 Test Item Value Reference Range Interpretation Comments CO2 (test code = CO2) 23 24-32 [place] 604762-10-21 23:09:00 Test Item Value Reference Range Interpretation Comments AGAP (test code = AGAP) 12.5 10.0-20.0 [place] 604762-10-21 23:09:00 Test Item Value Reference Range Interpretation Comments Calcium Lvl (test code = Calcium Lvl) 9.2 8.5-10.5 [place] 604762-10-21 23:09:00 Test Item Value Reference Range Interpretation Comments eGFR (test code = eGFR) 118 [place] 604762-10-21 23:09:00 Test Item Value Reference Range Interpretation Comments Magnesium Lvl (test code = Magnesium 2.0 1.8-2.4 Lvl) [place] 604762-10-21 23:09:00 Test Item Value Reference Range Interpretation Comments Phosphorus (test code = Phosphorus) 2.5 2.5-4.5 [place] 604762-10-21 23:09:00 Test Item Value Reference Range Interpretation Comments Total Protein (test code = Total 6.5 6.4-8.4 Protein) [place] 604762-10-21 23:09:00 Test Item Value Reference Range Interpretation Comments Albumin Lvl (test code = Albumin Lvl) 2.2 3.5-5.0 [place] 604762-10-21 23:09:00 Test Item Value Reference Range Interpretation Comments Globulin (test code = Globulin) 4.3 2.7-4.2 [facility] CentermyShavingClub.[facility] AUVTD8906-23-55 23:09:00 Test Item Value Reference Range Interpretation Comments A/G Ratio (test code = A/G Ratio) 0.5 1 0.7-1.6 [place] 604762-10-21 23:09:00 Test Item Value Reference Range Interpretation Comments ALT (test code = ALT) 10 See_Comment [Auto mated message] The system which ge nerated this result transmit delaney reference range : <=65. The reference range was not used to interpr et this result as kiarra l/abnormal. [facility] CentermyShavingClub.[facility] OLIMZ9605-89-90 23:09:00 Test Item Value Reference Range Interpretation Comments AST (test code = AST) 8 See_Comment [Auto mated message] The system which ge nerated this result transmit delaney reference range : <=37. The reference range was not used to interpr et this result as kiarra l/abnormal. [facility] [address] QCXGX0190-54-05 23:09:00 Test Item Value Reference Range Interpretation Comments Alk Phos (test code = Alk Phos) 105 39-136 [facility] CenterBob[facility] Corporation NWWUJ8918-11-06 23:09:00 Test Item Value Reference Range Interpretation Comments Bili Total (test code = Bili Total) 0.3 0.2-1.3 [facility] CenterBob[facility] Corporation YSKWP9009-74-57 23:09:00 Test Item Value Reference Range Interpretation Comments Bili Direct (test code no gt See_Comment [Aut omated message] The = Bili Direct) system which generated this result tra nsmitted reference range : <=0.3. The reference r kyle was not used to int erpret this result as kiarra l/abnormal. [facility] [address] NLKUQ3285-94-40 23:09:00 Test Item Value Reference Range Interpretation Comments Bili Indirect Unable to See_Comment [Automated (test code = Bili Calculate message] T he system Indirect) which generated this result transmitted reference range : <=1.0. The reference range was not used to interpret this result as normal/abnormal . [facility] CenterIrhdlifOBVCNFORN7272-84-68 23:09:00 Test Item Value Reference Range Interpretation Comments Total Protein (test code = Total 6.5 6.4-8.4 Protein) [facility] CenterHpxiclaEOOOUWIKA2617-06-31 23:09:00 Test Item Value Reference Range Interpretation Comments Albumin Lvl (test code = Albumin Lvl) 2.2 3.5-5.0 [facility] CenterZzcpgtkOQOELKWZX5575-03-46 23:09:00 Test Item Value Reference Range Interpretation Comments Globulin (test code = Globulin) 4.3 2.7-4.2 [facility] CenterJvwpykfTNQHHFWXM8422-82-57 23:09:00 Test Item Value Reference Range Interpretation Comments A/G Ratio (test code = A/G Ratio) 0.5 1 0.7-1.6 [facility] CenterSindyibFZEUKYDBI9970-57-91 23:09:00 Test Item Value Reference Range Interpretation Comments ALT (test code = ALT) 10 See_Comment [Auto mated message] The system which ge nerated this result transmit delaney reference range : <=65. The reference range was not used to interpr et this result as kiarra l/abnormal. [facility] IothhidKRDMFXPKX4323-00-53 23:09:00 Test Item Value Reference Range Interpretation Comments AST (test code = AST) 8 See_Comment [Auto mated message] The system which ge nerated this result transmit delaney reference range : <=37. The reference range was not used to interpr et this result as kiarra l/abnormal. [facility] YxccdgnKTHYPTZWP3634-75-33 23:09:00 Test Item Value Reference Range Interpretation Comments Alk Phos (test code = Alk Phos) 105 39-136 [facility] CenterBmnewhqONZMWODLW1035-19-20 23:09:00 Test Item Value Reference Range Interpretation Comments Bili Total (test code = Bili Total) 0.3 0.2-1.3 [facility] GjvesayIDKFJNPHC9467-15-74 23:09:00 Test Item Value Reference Range Interpretation Comments Bili Direct (test code no gt See_Comment [Aut omated message] The = Bili Direct) system which generated this result tra nsmitted reference range : <=0.3. The reference r kyle was not used to int erpret this result as kiarra l/abnormal. [facility] HgieeblFXYVTSQMH1756-96-68 23:09:00 Test Item Value Reference Range Interpretation Comments Bili Indirect Unable to See_Comment [Automated (test code = Bili Calculate message] T he system Indirect) which generated this result transmitted reference range : <=1.0. The reference range was not used to interpret this result as normal/abnormal . [facility] RndphekSKBQUSHQV4328-99-89 23:09:00 Test Item Value Reference Range Interpretation Comments Vitamin B12 Lvl (test code = Vitamin 759 736-9375 B12 Lvl) [facility] CenterMztlylzILOEQXVBO0721-28-02 23:09:00 Test Item Value Reference Range Interpretation Comments Folate Lvl (test code = Folate Lvl) 3.7 [facility] CenterJuteqajRLMTTPHQX4539-94-50 23:09:00 Test Item Value Reference Range Interpretation Comments Ferritin Lvl (test code = Ferritin Lvl) 108 5-204 [facility] CenterDhybfncPGPPVGWZO5767-50-33 23:09:00 Test Item Value Reference Range Interpretation Comments Iron (test code = Iron) 26 45-160 [facility] HospitalEodvobgIUBEYOENY9726-40-93 23:09:00 Test Item Value Reference Range Interpretation Comments TIBC (test code = TIBC) 198 250-450 [facility] HospitalNpufpmoXATEXWIOQ4989-23-09 23:09:00 Test Item Value Reference Range Interpretation Comments % Satur Fe (test code = % Satur Fe) 13 16-45 [facility] HospitalTirnxuaPEOSNTLJGV7189-07-29 23:09:00 Test Item Value Reference Range Interpretation Comments Segs (test code = Segs) 68.9 45.0-75.0 [place] 587612-10-21 23:09:00 Test Item Value Reference Range Interpretation Comments Lymphocytes (test code = Lymphocytes) 22.4 20.0-40.0 [id number] 23:09:00 Test Item Value Reference Range Interpretation Comments Monocytes (test code = Monocytes) 5.7 2.0-12.0 [place] [id number] 23:09:00 Test Item Value Reference Range Interpretation Comments Eosinophils (test code = 2.6 See_Comment [A utomated message] The Eosinophils) system which ge nerated this result tra nsmitted reference range : <=4.0. The reference r kyle was not used to int erpret this result as normal/abnormal . [facility] Hos[id number] 23:09:00 Test Item Value Reference Range Interpretation Comments Basophils (test code = 0.4 See_Comment [Aut omated message] The Basophils) system which ge nerated this result tra nsmitted reference range : <=1.0. The reference r kyle was not used to int erpret this result as normal/abnormal . [facility] HospitalSddhvbhTRHAPLLEXR7163-15-04 23:09:00 Test Item Value Reference Range Interpretation Comments Neutrophils # (test code = Neutrophils 8.7 1.5-8.1 #) [place] [id number] 23:09:00 Test Item Value Reference Range Interpretation Comments Lymphocytes # (test code = Lymphocytes 2.8 1.0-5.5 #) [facility] H[id number] 23:09:00 Test Item Value Reference Range Interpretation Comments Monocytes # (test code 0.7 See_Comment [Aut omated message] The = Monocytes #) system which generated this result tra nsmitted reference range : <=0.8. The reference r kyle was not used to int erpret this result as normal/abnormal . [facility] HospitalHpklfrwWNHWIDHBOH4011-87-18 23:09:00 Test Item Value Reference Range Interpretation Comments Eosinophils # (test code 0.3 See_Comment [A utomated message] The = Eosinophils #) system whic h generated this result tra nsmitted reference range : <=0.5. The reference r kyle was not used to int erpret this result as normal/abnormal . [facility] HospitalQguuzwmSXDOLKMQAI6113-15-55 23:09:00 Test Item Value Reference Range Interpretation Comments WBC (test code = WBC) 12.6 3.7-10.4 [facility] HospitalCrwnzfaSFJCJDJUKA0438-53-27 23:09:00 Test Item Value Reference Range Interpretation Comments RBC (test code = RBC) 3.13 4.20-5.40 [facility] HospitalOfbmujxMFXFGMIQAY2893-75-04 23:09:00 Test Item Value Reference Range Interpretation Comments MCV (test code = MCV) 85.6 80.0-98.0 [facility] HospitalOttrswpBMQAXROZHD3124-84-41 23:09:00 Test Item Value Reference Range Interpretation Comments MCH (test code = MCH) 27.2 pg 27.0-31.0 [facility] HospitalCzipynkNPEYWMJBHE0595-22-57 23:09:00 Test Item Value Reference Range Interpretation Comments MCHC (test code = MCHC) 31.8 32.0-36.0 [facility] HospitalTnwezipLOVHVFEXZK7373-49-05 23:09:00 Test Item Value Reference Range Interpretation Comments RDW (test code = RDW) 12.4 11.5-14.5 [facility] HospitalMprdtttTYWNQHRMJT7424-43-20 23:09:00 Test Item Value Reference Range Interpretation Comments Platelet (test code = Platelet) 373 133-450 [facility] HospitalWovjqgyKUNIHGWNUH2070-26-29 23:09:00 Test Item Value Reference Range Interpretation Comments MPV (test code = MPV) 8.2 7.4-10.4 [facility]PT:ISOLATE:ORDQN:[id number] 23:09:00 Test Item Value Reference Range Interpretation Comments Culture: Blood Aerobic Bottle: (test code = Staphylococcus epidermidis Culture: Blood) . Critical Results Called To: Gabe NORMAN At: 06/25/2022 06:39 Called By: YAKOV Read Back Ok . Critical Results Called To: DR. LOZOYA AND Paolo CHRISTIAN RN At: 06/25/2022 07:20 Called By: ELIAS Read Back Ok [facility]IP[facility]USC:PT:ISOLATE:ORDQN:[id number] 23:09:00 Test Item Value Reference Range Interpretation Comments Staphylococcus Staphylococcus epidermidis (test code epidermidis = Staphylococcus epidermidis) [facility] CenterExnjledOZNOBWGWZS9232-25-06 23:09:00 Test Item Value Reference Range Interpretation Comments HIV Ag/Ab 4th Gen Negative *NA*(06/23/22 (test code = HIV 6:09 PM) Ag/Ab 4th Gen) [facility] CenterLtkcjykTXIVBQIMOP6819-85-57 23:09:00 Test Item Value Reference Range Interpretation Comments RPR (test code = RPR) Non Reactive (06/23/22 6:09 PM) [facility] CenterMlvckfhJFNDFAILCM2456-75-17 23:09:00 Test Item Value Reference Range Interpretation Comments Hep A IgM (test code = Hep A NON-REACTIVE IgM) [facility] CenterMlrbuxuJRZYZAWEJC8368-07-72 23:09:00 Test Item Value Reference Range Interpretation Comments Hep Bs Ag (test code = Hep Bs NON-REACTIVE Ag) [facility] C[id number] 23:09:00 Test Item Value Reference Range Interpretation Comments Hep B Core IgM (test code = Hep NON-REACTIVE B Core IgM) [facility] CenterTzdlaogEGYWLHXTXD9981-61-10 23:09:00 Test Item Value Reference Range Interpretation Comments Hep C Ab (test code = Hep C Ab) NON-REACTIVE [facility] CenterPyskiiyCQPWQCJXLT7441-62-83 23:09:00 Test Item Value Reference Range Interpretation Comments Hep Signal to Cut-Off (test code = Hep 0.07 1 Signal to Cut-Off) [facility] CenterSppjkwiDMPOHEGNBI2939-71-51 23:09:00 Test Item Value Reference Range Interpretation Comments HIV Ag/Ab 4th Gen Negative *NA*(06/23/22 (test code = HIV 6:09 PM) Ag/Ab 4th Gen) [facility] CenterJcriicqCEIEXKZXOI9477-09-06 23:09:00 Test Item Value Reference Range Interpretation Comments RPR (test code = RPR) Non Reactive (06/23/22 6:09 PM) [facility] [id number] 23:09:00 Test Item Value Reference Range Interpretation Comments Culture: Blood Anaerobic Bottle: (test code = Staphylococcus epidermidis Culture: Blood) , Refer To Culture # [phone] for call notification. [facility] CenterTfmvovlWTRWOCQBIE2390-09-68 21:40:00 Test Item Value Reference Range Interpretation Comments Coronavirus (COVID-19) Not Detected NORMAN (test code = (06/23/22 4:40 PM) Coronavirus (COVID-19) NORMAN) [facility] CenterWbhrifzJMWGXYVVHT6302-65-53 21:40:00 Test Item Value Reference Range Interpretation Comments Coronavirus (COVID-19) Not Detected NORMAN (test code = (06/23/22 4:40 PM) Coronavirus (COVID-19) NORMAN) [facility] AND [id number] 21:40:00 Test Item Value Reference Range Interpretation Comments UA Color (test code = Yellow *NA*(06/23/22 UA Color) 4:40 PM) [facility] AND [id number] 21:40:00 Test Item Value Reference Range Interpretation Comments UA Turbidity (test code Slight *ABN*(06/23/22 = UA Turbidity) 4:40 PM) [facility] AND [id number] 21:40:00 Test Item Value Reference Range Interpretation Comments UA Spec Grav (test code = UA Spec 1.018 1 Grav) [facility] AND [id number] 21:40:00 Test Item Value Reference Range Interpretation Comments UA pH (test code = UA pH) 7.0 1 5.0-8.0 [facility] AND [id number] 21:40:00 Test Item Value Reference Range Interpretation Comments UA Protein (test code = UA Negative mg/dL Protein) [facility] AND [id number] 21:40:00 Test Item Value Reference Range Interpretation Comments UA Glucose (test code = UA Negative mg/dL Glucose) [facility] AND [id number] 21:40:00 Test Item Value Reference Range Interpretation Comments UA Ketones (test code = UA Ketones) 20 mg/dL [facility] AND [id number] 21:40:00 Test Item Value Reference Range Interpretation Comments UA Bili (test code = Negative *NA*(06/23/22 UA Bili) 4:40 PM) [facility] [id number] 21:40:00 Test Item Value Reference Range Interpretation Comments UA Blood (test code = Negative (06/23/22 4:40 UA Blood) PM) [facility] [id number] 21:40:00 Test Item Value Reference Range Interpretation Comments UA Urobilinogen (test code = UA no gt 0.1-1.0 Urobilinogen) [facility] [id number] 21:40:00 Test Item Value Reference Range Interpretation Comments UA Nitrite (test code Negative (06/23/22 4:40 = UA Nitrite) PM) [facility] [id number] 21:40:00 Test Item Value Reference Range Interpretation Comments UA Leuk Est (test code Small *ABN*(06/23/22 = UA Leuk Est) 4:40 PM) [facility] [id number] 21:40:00 Test Item Value Reference Range Interpretation Comments UA Sq Epi (test code = UA Sq Epi) Many /LPF [facility] [id number] 21:40:00 Test Item Value Reference Range Interpretation Comments UA WBC (test code = 26 See_Comment [Automa delaney message] The UA WBC) system which ge nerated this result transmit delaney reference range : <=5. The reference range was not used to interpr et this result as kiarra l/abnormal. [facility] [id number] 21:40:00 Test Item Value Reference Range Interpretation Comments UA RBC (test code = 5 See_Comment [Automa delaney message] The UA RBC) system which ge nerated this result transmit delaney reference range : <=2. The reference range was not used to interpr et this result as kiarra l/abnormal. [facility] [id number] 21:40:00 Test Item Value Reference Range Interpretation Comments UA Color (test code = Yellow *NA*(06/23/22 UA Color) 4:40 PM) [facility] [id number] 21:40:00 Test Item Value Reference Range Interpretation Comments UA Turbidity (test code Slight *ABN*(06/23/22 = UA Turbidity) 4:40 PM) [facility] [id number] 21:40:00 Test Item Value Reference Range Interpretation Comments UA Spec Grav (test code = UA Spec 1.018 1 Grav) [facility] AND [id number] 21:40:00 Test Item Value Reference Range Interpretation Comments UA pH (test code = UA pH) 7.0 1 5.0-8.0 [facility] AND [id number] 21:40:00 Test Item Value Reference Range Interpretation Comments UA Protein (test code = UA Negative mg/dL Protein) [facility] AND [id number] 21:40:00 Test Item Value Reference Range Interpretation Comments UA Glucose (test code = UA Negative mg/dL Glucose) [facility] AND [id number] 21:40:00 Test Item Value Reference Range Interpretation Comments UA Ketones (test code = UA Ketones) 20 mg/dL [facility] AND [id number] 21:40:00 Test Item Value Reference Range Interpretation Comments UA Bili (test code = Negative *NA*(06/23/22 UA Bili) 4:40 PM) [facility] AND [id number] 21:40:00 Test Item Value Reference Range Interpretation Comments UA Blood (test code = Negative (06/23/22 4:40 UA Blood) PM) [facility] AND [id number] 21:40:00 Test Item Value Reference Range Interpretation Comments UA Urobilinogen (test code = UA no gt 0.1-1.0 Urobilinogen) [facility] AND [id number] 21:40:00 Test Item Value Reference Range Interpretation Comments UA Nitrite (test code Negative (06/23/22 4:40 = UA Nitrite) PM) [facility] AND [id number] 21:40:00 Test Item Value Reference Range Interpretation Comments UA Leuk Est (test code Small *ABN*(06/23/22 = UA Leuk Est) 4:40 PM) [facility] AND [id number] 21:40:00 Test Item Value Reference Range Interpretation Comments UA Sq Epi (test code = UA Sq Epi) Many /LPF [facility] AND [id number] 21:40:00 Test Item Value Reference Range Interpretation Comments UA WBC (test code = 26 See_Comment [Automa delaney message] The UA WBC) system which ge nerated this result transmit delaney reference range : <=5. The reference range was not used to interpr et this result as kiarra l/abnormal. [facility] [id number] 21:40:00 Test Item Value Reference Range Interpretation Comments UA RBC (test code = 5 See_Comment [Automa delaney message] The UA RBC) system which ge nerated this result transmit delaney reference range : <=2. The reference range was not used to interpr et this result as kiarra l/abnormal. [facility] C[id number] 21:40:00 Test Item Value Reference Range Interpretation Comments Coronavirus (COVID-19) Not Detected NORMAN (test code = (06/23/22 4:40 PM) Coronavirus (COVID-19) NORMAN) [facility] Ce[id number] 21:40:00 Test Item Value Reference Range Interpretation Comments Coronavirus (COVID-19) Not Detected NORMAN (test code = (06/23/22 4:40 PM) Coronavirus (COVID-19) NORMAN) [facility] AND [id number] 21:40:00 Test Item Value Reference Range Interpretation Comments UA Color (test code = Yellow *NA*(06/23/22 UA Color) 4:40 PM) [facility] AND [id number] 21:40:00 Test Item Value Reference Range Interpretation Comments UA Turbidity (test code Slight *ABN*(06/23/22 = UA Turbidity) 4:40 PM) [facility] AND [id number] 21:40:00 Test Item Value Reference Range Interpretation Comments UA Spec Grav (test code = UA Spec 1.018 1 Grav) [facility] AND [id number] 21:40:00 Test Item Value Reference Range Interpretation Comments UA pH (test code = UA pH) 7.0 1 5.0-8.0 [facility] AND [id number] 21:40:00 Test Item Value Reference Range Interpretation Comments UA Protein (test code = UA Negative mg/dL Protein) [facility] AND [id number] 21:40:00 Test Item Value Reference Range Interpretation Comments UA Glucose (test code = UA Negative mg/dL Glucose) [facility] AND [id number] 21:40:00 Test Item Value Reference Range Interpretation Comments UA Ketones (test code = UA Ketones) 20 mg/dL [facility] [id number] 21:40:00 Test Item Value Reference Range Interpretation Comments UA Bili (test code = Negative *NA*(06/23/22 UA Bili) 4:40 PM) [facility] [id number] 21:40:00 Test Item Value Reference Range Interpretation Comments UA Blood (test code = Negative (06/23/22 4:40 UA Blood) PM) [facility] [id number] 21:40:00 Test Item Value Reference Range Interpretation Comments UA Urobilinogen (test code = UA no gt 0.1-1.0 Urobilinogen) [facility] AND [id number] 21:40:00 Test Item Value Reference Range Interpretation Comments UA Nitrite (test code Negative (06/23/22 4:40 = UA Nitrite) PM) [facility] AND [id number] 21:40:00 Test Item Value Reference Range Interpretation Comments UA Leuk Est (test code Small *ABN*(06/23/22 = UA Leuk Est) 4:40 PM) [facility] AND [id number] 21:40:00 Test Item Value Reference Range Interpretation Comments UA Sq Epi (test code = UA Sq Epi) Many /LPF [facility] AND [id number] 21:40:00 Test Item Value Reference Range Interpretation Comments UA WBC (test code = 26 See_Comment [Automa delaney message] The UA WBC) system which ge nerated this result transmit delaney reference range : <=5. The reference range was not used to interpr et this result as kiarra l/abnormal. [facility] [id number] 21:40:00 Test Item Value Reference Range Interpretation Comments UA RBC (test code = 5 See_Comment [Automa delaney message] The UA RBC) system which ge nerated this result transmit delaney reference range : <=2. The reference range was not used to interpr et this result as kiarra l/abnormal. [facility] [id number] 21:40:00 Test Item Value Reference Range Interpretation Comments UA Color (test code = Yellow *NA*(06/23/22 UA Color) 4:40 PM) [facility] AND [id number] 21:40:00 Test Item Value Reference Range Interpretation Comments UA Turbidity (test code Slight *ABN*(06/23/22 = UA Turbidity) 4:40 PM) [facility] AND [id number] 21:40:00 Test Item Value Reference Range Interpretation Comments UA Spec Grav (test code = UA Spec 1.018 1 Grav) [facility] AND [id number] 21:40:00 Test Item Value Reference Range Interpretation Comments UA pH (test code = UA pH) 7.0 1 5.0-8.0 [facility] AND [id number] 21:40:00 Test Item Value Reference Range Interpretation Comments UA Protein (test code = UA Negative mg/dL Protein) [facility] AND [id number] 21:40:00 Test Item Value Reference Range Interpretation Comments UA Glucose (test code = UA Negative mg/dL Glucose) [facility] AND [id number] 21:40:00 Test Item Value Reference Range Interpretation Comments UA Ketones (test code = UA Ketones) 20 mg/dL [facility] AND [id number] 21:40:00 Test Item Value Reference Range Interpretation Comments UA Bili (test code = Negative *NA*(06/23/22 UA Bili) 4:40 PM) [facility] AND [id number] 21:40:00 Test Item Value Reference Range Interpretation Comments UA Blood (test code = Negative (06/23/22 4:40 UA Blood) PM) [facility] AND [id number] 21:40:00 Test Item Value Reference Range Interpretation Comments UA Urobilinogen (test code = UA no gt 0.1-1.0 Urobilinogen) [facility] AND [id number] 21:40:00 Test Item Value Reference Range Interpretation Comments UA Nitrite (test code Negative (06/23/22 4:40 = UA Nitrite) PM) [facility] AND [id number] 21:40:00 Test Item Value Reference Range Interpretation Comments UA Leuk Est (test code Small *ABN*(06/23/22 = UA Leuk Est) 4:40 PM) [facility] [id number] 21:40:00 Test Item Value Reference Range Interpretation Comments UA Sq Epi (test code = UA Sq Epi) Many /LPF [facility] [id number] 21:40:00 Test Item Value Reference Range Interpretation Comments UA WBC (test code = 26 See_Comment [Automa delnaey message] The UA WBC) system which ge nerated this result transmit delaney reference range : <=5. The reference range was not used to interpr et this result as kiarra l/abnormal. [facility] [id number] 21:40:00 Test Item Value Reference Range Interpretation Comments UA RBC (test code = 5 See_Comment [Automa delaney message] The UA RBC) system which ge nerated this result transmit delaney reference range : <=2. The reference range was not used to interpr et this result as kiarra l/abnormal. [facility] [id number] 21:40:00 Test Item Value Reference Range Interpretation Comments Coronavirus (COVID-19) Not Detected NORMAN (test code = (06/23/22 4:40 PM) Coronavirus (COVID-19) NORMAN) [facility] [id number] 21:40:00 Test Item Value Reference Range Interpretation Comments Coronavirus (COVID-19) Not Detected NORMAN (test code = (06/23/22 4:40 PM) Coronavirus (COVID-19) NORMAN) [facility] [id number] 21:40:00 Test Item Value Reference Range Interpretation Comments UA Color (test code = Yellow *NA*(06/23/22 UA Color) 4:40 PM) [facility] [id number] 21:40:00 Test Item Value Reference Range Interpretation Comments UA Turbidity (test code Slight *ABN*(06/23/22 = UA Turbidity) 4:40 PM) [facility] [id number] 21:40:00 Test Item Value Reference Range Interpretation Comments UA Spec Grav (test code = UA Spec 1.018 1 Grav) [facility] [id number] 21:40:00 Test Item Value Reference Range Interpretation Comments UA pH (test code = UA pH) 7.0 1 5.0-8.0 [facility] [id number] 21:40:00 Test Item Value Reference Range Interpretation Comments UA Protein (test code = UA Negative mg/dL Protein) [facility] AND [id number] 21:40:00 Test Item Value Reference Range Interpretation Comments UA Glucose (test code = UA Negative mg/dL Glucose) [facility] AND [id number] 21:40:00 Test Item Value Reference Range Interpretation Comments UA Ketones (test code = UA Ketones) 20 mg/dL [facility] AND [id number] 21:40:00 Test Item Value Reference Range Interpretation Comments UA Bili (test code = Negative *NA*(06/23/22 UA Bili) 4:40 PM) [facility] AND [id number] 21:40:00 Test Item Value Reference Range Interpretation Comments UA Blood (test code = Negative (06/23/22 4:40 UA Blood) PM) [facility] AND [id number] 21:40:00 Test Item Value Reference Range Interpretation Comments UA Urobilinogen (test code = UA no gt 0.1-1.0 Urobilinogen) [facility] AND [id number] 21:40:00 Test Item Value Reference Range Interpretation Comments UA Nitrite (test code Negative (06/23/22 4:40 = UA Nitrite) PM) [facility] AND [id number] 21:40:00 Test Item Value Reference Range Interpretation Comments UA Leuk Est (test code Small *ABN*(06/23/22 = UA Leuk Est) 4:40 PM) [facility] AND [id number] 21:40:00 Test Item Value Reference Range Interpretation Comments UA Sq Epi (test code = UA Sq Epi) Many /LPF [facility] AND [id number] 21:40:00 Test Item Value Reference Range Interpretation Comments UA WBC (test code = 26 See_Comment [Automa delaney message] The UA WBC) system which ge nerated this result transmit delaney reference range : <=5. The reference range was not used to interpr et this result as kiarra l/abnormal. [facility] AND [id number] 21:40:00 Test Item Value Reference Range Interpretation Comments UA RBC (test code = 5 See_Comment [Automa delaney message] The UA RBC) system which ge nerated this result transmit delaney reference range : <=2. The reference range was not used to interpr et this result as kiarra l/abnormal. [facility] AND [id number] 21:40:00 Test Item Value Reference Range Interpretation Comments UA Color (test code = Yellow *NA*(06/23/22 UA Color) 4:40 PM) [facility] AND [id number] 21:40:00 Test Item Value Reference Range Interpretation Comments UA Turbidity (test code Slight *ABN*(06/23/22 = UA Turbidity) 4:40 PM) [facility] AND [id number] 21:40:00 Test Item Value Reference Range Interpretation Comments UA Spec Grav (test code = UA Spec 1.018 1 Grav) [facility] AND [id number] 21:40:00 Test Item Value Reference Range Interpretation Comments UA pH (test code = UA pH) 7.0 1 5.0-8.0 [facility] AND [id number] 21:40:00 Test Item Value Reference Range Interpretation Comments UA Protein (test code = UA Negative mg/dL Protein) [facility] AND [id number] 21:40:00 Test Item Value Reference Range Interpretation Comments UA Glucose (test code = UA Negative mg/dL Glucose) [facility] AND [id number] 21:40:00 Test Item Value Reference Range Interpretation Comments UA Ketones (test code = UA Ketones) 20 mg/dL [facility] AND [id number] 21:40:00 Test Item Value Reference Range Interpretation Comments UA Bili (test code = Negative *NA*(06/23/22 UA Bili) 4:40 PM) [facility] AND [id number] 21:40:00 Test Item Value Reference Range Interpretation Comments UA Blood (test code = Negative (06/23/22 4:40 UA Blood) PM) [facility] AND [id number] 21:40:00 Test Item Value Reference Range Interpretation Comments UA Urobilinogen (test code = UA no gt 0.1-1.0 Urobilinogen) [facility] AND [id number] 21:40:00 Test Item Value Reference Range Interpretation Comments UA Nitrite (test code Negative (06/23/22 4:40 = UA Nitrite) PM) [facility] AND [id number] 21:40:00 Test Item Value Reference Range Interpretation Comments UA Leuk Est (test code Small *ABN*(06/23/22 = UA Leuk Est) 4:40 PM) [facility] AND [id number] 21:40:00 Test Item Value Reference Range Interpretation Comments UA Sq Epi (test code = UA Sq Epi) Many /LPF [facility] AND [id number] 21:40:00 Test Item Value Reference Range Interpretation Comments UA WBC (test code = 26 See_Comment [Automa delaney message] The UA WBC) system which ge nerated this result transmit delaney reference range : <=5. The reference range was not used to interpr et this result as kiarra l/abnormal. [facility] AND [id number] 21:40:00 Test Item Value Reference Range Interpretation Comments UA RBC (test code = 5 See_Comment [Automa delaney message] The UA RBC) system which ge nerated this result transmit delaney reference range : <=2. The reference range was not used to interpr et this result as kiarra l/abnormal. [facility] [id number] 21:40:00 Test Item Value Reference Range Interpretation Comments Coronavirus (COVID-19) Not Detected NORMAN (test code = (06/23/22 4:40 PM) Coronavirus (COVID-19) NORMAN) [id number] 21:40:00 Test Item Value Reference Range Interpretation Comments Coronavirus (COVID-19) Not Detected NORMAN (test code = (06/23/22 4:40 PM) Coronavirus (COVID-19) NORMAN) [facility] AND [id number] 21:40:00 Test Item Value Reference Range Interpretation Comments UA Color (test code = Yellow *NA*(06/23/22 UA Color) 4:40 PM) [facility] AND [id number] 21:40:00 Test Item Value Reference Range Interpretation Comments UA Turbidity (test code Slight *ABN*(06/23/22 = UA Turbidity) 4:40 PM) [facility] AND [id number] 21:40:00 Test Item Value Reference Range Interpretation Comments UA Spec Grav (test code = UA Spec 1.018 1 Grav) [facility] AND [id number] 21:40:00 Test Item Value Reference Range Interpretation Comments UA pH (test code = UA pH) 7.0 1 5.0-8.0 [facility] [id number] 21:40:00 Test Item Value Reference Range Interpretation Comments Coronavirus (COVID-19) Not Detected NORMAN (test code = (06/23/22 4:40 PM) Coronavirus (COVID-19) NORMAN) [facility] AND [id number] 21:40:00 Test Item Value Reference Range Interpretation Comments UA Protein (test code = UA Negative mg/dL Protein) [facility] AND [id number] 21:40:00 Test Item Value Reference Range Interpretation Comments UA Glucose (test code = UA Negative mg/dL Glucose) [facility] AND [id number] 21:40:00 Test Item Value Reference Range Interpretation Comments UA Ketones (test code = UA Ketones) 20 mg/dL [facility] AND [id number] 21:40:00 Test Item Value Reference Range Interpretation Comments UA Bili (test code = Negative *NA*(06/23/22 UA Bili) 4:40 PM) [facility] AND [id number] 21:40:00 Test Item Value Reference Range Interpretation Comments UA Blood (test code = Negative (06/23/22 4:40 UA Blood) PM) [facility] AND [id number] 21:40:00 Test Item Value Reference Range Interpretation Comments UA Urobilinogen (test code = UA no gt 0.1-1.0 Urobilinogen) [facility] AND [id number] 21:40:00 Test Item Value Reference Range Interpretation Comments UA Nitrite (test code Negative (06/23/22 4:40 = UA Nitrite) PM) [facility] [id number] 21:40:00 Test Item Value Reference Range Interpretation Comments UA Leuk Est (test code Small *ABN*(06/23/22 = UA Leuk Est) 4:40 PM) [facility] AND [id number] 21:40:00 Test Item Value Reference Range Interpretation Comments UA Sq Epi (test code = UA Sq Epi) Many /LPF [facility] [id number] 21:40:00 Test Item Value Reference Range Interpretation Comments UA WBC (test code = 26 See_Comment [Automa delaney message] The UA WBC) system which ge nerated this result transmit delaney reference range : <=5. The reference range was not used to interpr et this result as kiarra l/abnormal. [facility] [id number] 21:40:00 Test Item Value Reference Range Interpretation Comments Coronavirus (COVID-19) Not Detected NORMAN (test code = (06/23/22 4:40 PM) Coronavirus (COVID-19) NORMAN) [facility] AND [id number] 21:40:00 Test Item Value Reference Range Interpretation Comments UA RBC (test code = 5 See_Comment [Automa delaney message] The UA RBC) system which ge nerated this result transmit delaney reference range : <=2. The reference range was not used to interpr et this result as kiarra l/abnormal. [facility] AND [id number] 21:40:00 Test Item Value Reference Range Interpretation Comments UA Color (test code = Yellow *NA*(06/23/22 UA Color) 4:40 PM) [facility] [id number] 21:40:00 Test Item Value Reference Range Interpretation Comments UA Turbidity (test code Slight *ABN*(06/23/22 = UA Turbidity) 4:40 PM) [facility] [id number] 21:40:00 Test Item Value Reference Range Interpretation Comments UA Spec Grav (test code = UA Spec 1.018 1 Grav) [facility] [id number] 21:40:00 Test Item Value Reference Range Interpretation Comments UA pH (test code = UA pH) 7.0 1 5.0-8.0 [facility] [id number] 21:40:00 Test Item Value Reference Range Interpretation Comments UA Protein (test code = UA Negative mg/dL Protein) [facility] [id number] 21:40:00 Test Item Value Reference Range Interpretation Comments UA Glucose (test code = UA Negative mg/dL Glucose) [facility] [id number] 21:40:00 Test Item Value Reference Range Interpretation Comments UA Ketones (test code = UA Ketones) 20 mg/dL [facility] [id number] 21:40:00 Test Item Value Reference Range Interpretation Comments UA Bili (test code = Negative *NA*(06/23/22 UA Bili) 4:40 PM) [facility] [id number] 21:40:00 Test Item Value Reference Range Interpretation Comments UA Blood (test code = Negative (06/23/22 4:40 UA Blood) PM) [facility] [id number] 21:40:00 Test Item Value Reference Range Interpretation Comments UA Color (test code = Yellow *NA*(06/23/22 UA Color) 4:40 PM) [facility] AND [id number] 21:40:00 Test Item Value Reference Range Interpretation Comments UA Urobilinogen (test code = UA no gt 0.1-1.0 Urobilinogen) [facility] AND [id number] 21:40:00 Test Item Value Reference Range Interpretation Comments UA Nitrite (test code Negative (06/23/22 4:40 = UA Nitrite) PM) [facility] AND [id number] 21:40:00 Test Item Value Reference Range Interpretation Comments UA Leuk Est (test code Small *ABN*(06/23/22 = UA Leuk Est) 4:40 PM) [facility] AND [id number] 21:40:00 Test Item Value Reference Range Interpretation Comments UA Sq Epi (test code = UA Sq Epi) Many /LPF [facility] AND [id number] 21:40:00 Test Item Value Reference Range Interpretation Comments UA WBC (test code = 26 See_Comment [Automa delaney message] The UA WBC) system which ge nerated this result transmit delaney reference range : <=5. The reference range was not used to interpr et this result as kiarra l/abnormal. [facility] [id number] 21:40:00 Test Item Value Reference Range Interpretation Comments UA RBC (test code = 5 See_Comment [Automa delaney message] The UA RBC) system which ge nerated this result transmit delaney reference range : <=2. The reference range was not used to interpr et this result as kiarra l/abnormal. [facility] [id number] 21:40:00 Test Item Value Reference Range Interpretation Comments UA Turbidity (test code Slight *ABN*(06/23/22 = UA Turbidity) 4:40 PM) [facility] AND [id number] 21:40:00 Test Item Value Reference Range Interpretation Comments UA Spec Grav (test code = UA Spec 1.018 1 Grav) [facility] AND [id number] 21:40:00 Test Item Value Reference Range Interpretation Comments UA pH (test code = UA pH) 7.0 1 5.0-8.0 [facility] AND [id number] 21:40:00 Test Item Value Reference Range Interpretation Comments UA Protein (test code = UA Negative mg/dL Protein) [facility] AND [id number] 21:40:00 Test Item Value Reference Range Interpretation Comments UA Glucose (test code = UA Negative mg/dL Glucose) [facility] AND [id number] 21:40:00 Test Item Value Reference Range Interpretation Comments UA Ketones (test code = UA Ketones) 20 mg/dL [facility] AND [id number] 21:40:00 Test Item Value Reference Range Interpretation Comments UA Bili (test code = Negative *NA*(06/23/22 UA Bili) 4:40 PM) [facility] AND [id number] 21:40:00 Test Item Value Reference Range Interpretation Comments UA Blood (test code = Negative (06/23/22 4:40 UA Blood) PM) [facility] AND [id number] 21:40:00 Test Item Value Reference Range Interpretation Comments UA Urobilinogen (test code = UA no gt 0.1-1.0 Urobilinogen) [facility] AND [id number] 21:40:00 Test Item Value Reference Range Interpretation Comments UA Nitrite (test code Negative (06/23/22 4:40 = UA Nitrite) PM) [facility] AND [id number] 21:40:00 Test Item Value Reference Range Interpretation Comments UA Leuk Est (test code Small *ABN*(06/23/22 = UA Leuk Est) 4:40 PM) [facility] AND [id number] 21:40:00 Test Item Value Reference Range Interpretation Comments UA Sq Epi (test code = UA Sq Epi) Many /LPF [facility] AND [id number] 21:40:00 Test Item Value Reference Range Interpretation Comments UA WBC (test code = 26 See_Comment [Automa delaney message] The UA WBC) system which ge nerated this result transmit delaney reference range : <=5. The reference range was not used to interpr et this result as kiarra l/abnormal. [facility] AND [id number] 21:40:00 Test Item Value Reference Range Interpretation Comments UA RBC (test code = 5 See_Comment [Automa delaney message] The UA RBC) system which ge nerated this result transmit delaney reference range : <=2. The reference range was not used to interpr et this result as kiarra l/abnormal. [facility] AND [id number] 21:40:00 Test Item Value Reference Range Interpretation Comments UA Color (test code = Yellow *NA*(06/23/22 UA Color) 4:40 PM) [facility] AND [id number] 21:40:00 Test Item Value Reference Range Interpretation Comments UA Turbidity (test code Slight *ABN*(06/23/22 = UA Turbidity) 4:40 PM) [facility] AND [id number] 21:40:00 Test Item Value Reference Range Interpretation Comments UA Spec Grav (test code = UA Spec 1.018 1 Grav) [facility] AND [id number] 21:40:00 Test Item Value Reference Range Interpretation Comments UA pH (test code = UA pH) 7.0 1 5.0-8.0 [facility] AND [id number] 21:40:00 Test Item Value Reference Range Interpretation Comments UA Protein (test code = UA Negative mg/dL Protein) [facility] AND [id number] 21:40:00 Test Item Value Reference Range Interpretation Comments UA Glucose (test code = UA Negative mg/dL Glucose) [facility] AND [id number] 21:40:00 Test Item Value Reference Range Interpretation Comments UA Ketones (test code = UA Ketones) 20 mg/dL [facility] AND [id number] 21:40:00 Test Item Value Reference Range Interpretation Comments UA Bili (test code = Negative *NA*(06/23/22 UA Bili) 4:40 PM) [facility] AND [id number] 21:40:00 Test Item Value Reference Range Interpretation Comments UA Blood (test code = Negative (06/23/22 4:40 UA Blood) PM) [facility] AND [id number] 21:40:00 Test Item Value Reference Range Interpretation Comments UA Urobilinogen (test code = UA no gt 0.1-1.0 Urobilinogen) [facility] AND [id number] 21:40:00 Test Item Value Reference Range Interpretation Comments UA Nitrite (test code Negative (06/23/22 4:40 = UA Nitrite) PM) [facility] AND [id number] 21:40:00 Test Item Value Reference Range Interpretation Comments UA Leuk Est (test code Small *ABN*(06/23/22 = UA Leuk Est) 4:40 PM) [facility] AND [id number] 21:40:00 Test Item Value Reference Range Interpretation Comments UA Sq Epi (test code = UA Sq Epi) Many /LPF [facility] AND [id number] 21:40:00 Test Item Value Reference Range Interpretation Comments UA WBC (test code = 26 See_Comment [Automa delaney message] The UA WBC) system which ge nerated this result transmit delaney reference range : <=5. The reference range was not used to interpr et this result as kiarra l/abnormal. [facility] AND [id number] 21:40:00 Test Item Value Reference Range Interpretation Comments UA RBC (test code = 5 See_Comment [Automa delaney message] The UA RBC) system which ge nerated this result transmit delaney reference range : <=2. The reference range was not used to interpr et this result as kiarra l/abnormal. [facility] [id number] 21:40:00 Test Item Value Reference Range Interpretation Comments Coronavirus (COVID-19) Not Detected NORMAN (test code = (06/23/22 4:40 PM) Coronavirus (COVID-19) NORMAN) [facility] [id number] 21:40:00 Test Item Value Reference Range Interpretation Comments Coronavirus (COVID-19) Not Detected NORMAN (test code = (06/23/22 4:40 PM) Coronavirus (COVID-19) NORMAN) [facility] AND [id number] 21:40:00 Test Item Value Reference Range Interpretation Comments UA Color (test code = Yellow *NA*(06/23/22 UA Color) 4:40 PM) [facility] AND [id number] 21:40:00 Test Item Value Reference Range Interpretation Comments UA Turbidity (test code Slight *ABN*(06/23/22 = UA Turbidity) 4:40 PM) [facility] AND [id number] 21:40:00 Test Item Value Reference Range Interpretation Comments UA Spec Grav (test code = UA Spec 1.018 1 Grav) [facility] AND [id number] 21:40:00 Test Item Value Reference Range Interpretation Comments UA pH (test code = UA pH) 7.0 1 5.0-8.0 [facility] AND [id number] 21:40:00 Test Item Value Reference Range Interpretation Comments UA Protein (test code = UA Negative mg/dL Protein) [facility] AND [id number] 21:40:00 Test Item Value Reference Range Interpretation Comments UA Glucose (test code = UA Negative mg/dL Glucose) [facility] AND [id number] 21:40:00 Test Item Value Reference Range Interpretation Comments UA Ketones (test code = UA Ketones) 20 mg/dL [facility] AND [id number] 21:40:00 Test Item Value Reference Range Interpretation Comments UA Bili (test code = Negative *NA*(06/23/22 UA Bili) 4:40 PM) [facility] AND [id number] 21:40:00 Test Item Value Reference Range Interpretation Comments UA Blood (test code = Negative (06/23/22 4:40 UA Blood) PM) [facility] AND [id number] 21:40:00 Test Item Value Reference Range Interpretation Comments UA Urobilinogen (test code = UA no gt 0.1-1.0 Urobilinogen) [facility] AND [id number] 21:40:00 Test Item Value Reference Range Interpretation Comments UA Nitrite (test code Negative (06/23/22 4:40 = UA Nitrite) PM) [facility] AND [id number] 21:40:00 Test Item Value Reference Range Interpretation Comments UA Leuk Est (test code Small *ABN*(06/23/22 = UA Leuk Est) 4:40 PM) [facility] AND [id number] 21:40:00 Test Item Value Reference Range Interpretation Comments UA Sq Epi (test code = UA Sq Epi) Many /LPF [facility] AND [id number] 21:40:00 Test Item Value Reference Range Interpretation Comments UA WBC (test code = 26 See_Comment [Automa delaney message] The UA WBC) system which ge nerated this result transmit delaney reference range : <=5. The reference range was not used to interpr et this result as kiarra l/abnormal. [facility] [id number] 21:40:00 Test Item Value Reference Range Interpretation Comments UA RBC (test code = 5 See_Comment [Automa delaney message] The UA RBC) system which ge nerated this result transmit delaney reference range : <=2. The reference range was not used to interpr et this result as kiarra l/abnormal. [facility] AND [id number] 21:40:00 Test Item Value Reference Range Interpretation Comments UA Color (test code = Yellow *NA*(06/23/22 UA Color) 4:40 PM) [facility] AND [id number] 21:40:00 Test Item Value Reference Range Interpretation Comments UA Turbidity (test code Slight *ABN*(06/23/22 = UA Turbidity) 4:40 PM) [facility] AND [id number] 21:40:00 Test Item Value Reference Range Interpretation Comments UA Spec Grav (test code = UA Spec 1.018 1 Grav) [facility] AND [id number] 21:40:00 Test Item Value Reference Range Interpretation Comments UA pH (test code = UA pH) 7.0 1 5.0-8.0 [facility] AND [id number] 21:40:00 Test Item Value Reference Range Interpretation Comments UA Protein (test code = UA Negative mg/dL Protein) [facility] AND [id number] 21:40:00 Test Item Value Reference Range Interpretation Comments UA Glucose (test code = UA Negative mg/dL Glucose) [facility] AND [id number] 21:40:00 Test Item Value Reference Range Interpretation Comments UA Ketones (test code = UA Ketones) 20 mg/dL [facility] AND [id number] 21:40:00 Test Item Value Reference Range Interpretation Comments UA Bili (test code = Negative *NA*(06/23/22 UA Bili) 4:40 PM) [facility] AND [id number] 21:40:00 Test Item Value Reference Range Interpretation Comments UA Blood (test code = Negative (06/23/22 4:40 UA Blood) PM) [facility] AND [id number] 21:40:00 Test Item Value Reference Range Interpretation Comments UA Urobilinogen (test code = UA no gt 0.1-1.0 Urobilinogen) [facility] AND [id number] 21:40:00 Test Item Value Reference Range Interpretation Comments UA Nitrite (test code Negative (06/23/22 4:40 = UA Nitrite) PM) [facility] AND [id number] 21:40:00 Test Item Value Reference Range Interpretation Comments UA Leuk Est (test code Small *ABN*(06/23/22 = UA Leuk Est) 4:40 PM) [facility] AND [id number] 21:40:00 Test Item Value Reference Range Interpretation Comments UA Sq Epi (test code = UA Sq Epi) Many /LPF [facility] AND [id number] 21:40:00 Test Item Value Reference Range Interpretation Comments UA WBC (test code = 26 See_Comment [Automa delaney message] The UA WBC) system which ge nerated this result transmit delaney reference range : <=5. The reference range was not used to interpr et this result as kiarra l/abnormal. [facility] AND [id number] 21:40:00 Test Item Value Reference Range Interpretation Comments UA RBC (test code = 5 See_Comment [Automa delaney message] The UA RBC) system which ge nerated this result transmit delaney reference range : <=2. The reference range was not used to interpr et this result as kiarra l/abnormal. [facility] [id number] 21:40:00 Test Item Value Reference Range Interpretation Comments Coronavirus (COVID-19) Not Detected NORMAN (test code = (06/23/22 4:40 PM) Coronavirus (COVID-19) NORMAN) [facility] [id number] 21:40:00 Test Item Value Reference Range Interpretation Comments Coronavirus (COVID-19) Not Detected NORMAN (test code = (06/23/22 4:40 PM) Coronavirus (COVID-19) NORMAN) [facility] [id number] 21:40:00 Test Item Value Reference Range Interpretation Comments UA Color (test code = Yellow *NA*(06/23/22 UA Color) 4:40 PM) [facility] [id number] 21:40:00 Test Item Value Reference Range Interpretation Comments UA Turbidity (test code Slight *ABN*(06/23/22 = UA Turbidity) 4:40 PM) [facility] [id number] 21:40:00 Test Item Value Reference Range Interpretation Comments UA Spec Grav (test code = UA Spec 1.018 1 Grav) [facility] [id number] 21:40:00 Test Item Value Reference Range Interpretation Comments UA pH (test code = UA pH) 7.0 1 5.0-8.0 [facility] [id number] 21:40:00 Test Item Value Reference Range Interpretation Comments UA Protein (test code = UA Negative mg/dL Protein) [facility] [id number] 21:40:00 Test Item Value Reference Range Interpretation Comments UA Glucose (test code = UA Negative mg/dL Glucose) [facility] [id number] 21:40:00 Test Item Value Reference Range Interpretation Comments UA Ketones (test code = UA Ketones) 20 mg/dL [facility] [id number] 21:40:00 Test Item Value Reference Range Interpretation Comments UA Bili (test code = Negative *NA*(06/23/22 UA Bili) 4:40 PM) [facility] [id number] 21:40:00 Test Item Value Reference Range Interpretation Comments UA Blood (test code = Negative (06/23/22 4:40 UA Blood) PM) [facility] [id number] 21:40:00 Test Item Value Reference Range Interpretation Comments UA Urobilinogen (test code = UA no gt 0.1-1.0 Urobilinogen) [facility] [id number] 21:40:00 Test Item Value Reference Range Interpretation Comments UA Nitrite (test code Negative (06/23/22 4:40 = UA Nitrite) PM) [facility] [id number] 21:40:00 Test Item Value Reference Range Interpretation Comments UA Leuk Est (test code Small *ABN*(06/23/22 = UA Leuk Est) 4:40 PM) [facility] [id number] 21:40:00 Test Item Value Reference Range Interpretation Comments UA Sq Epi (test code = UA Sq Epi) Many /LPF [facility] AND [id number] 21:40:00 Test Item Value Reference Range Interpretation Comments UA WBC (test code = 26 See_Comment [Automa delaney message] The UA WBC) system which ge nerated this result transmit delaney reference range : <=5. The reference range was not used to interpr et this result as kiarra l/abnormal. [facility] AND [id number] 21:40:00 Test Item Value Reference Range Interpretation Comments UA RBC (test code = 5 See_Comment [Automa delaney message] The UA RBC) system which ge nerated this result transmit delaney reference range : <=2. The reference range was not used to interpr et this result as kiarra l/abnormal. [facility] AND [id number] 21:40:00 Test Item Value Reference Range Interpretation Comments UA Color (test code = Yellow *NA*(06/23/22 UA Color) 4:40 PM) [facility] [id number] 21:40:00 Test Item Value Reference Range Interpretation Comments UA Turbidity (test code Slight *ABN*(06/23/22 = UA Turbidity) 4:40 PM) [facility] [id number] 21:40:00 Test Item Value Reference Range Interpretation Comments UA Spec Grav (test code = UA Spec 1.018 1 Grav) [facility] AND [id number] 21:40:00 Test Item Value Reference Range Interpretation Comments UA pH (test code = UA pH) 7.0 1 5.0-8.0 [facility] AND [id number] 21:40:00 Test Item Value Reference Range Interpretation Comments UA Protein (test code = UA Negative mg/dL Protein) [facility] [id number] 21:40:00 Test Item Value Reference Range Interpretation Comments UA Glucose (test code = UA Negative mg/dL Glucose) [facility] AND [id number] 21:40:00 Test Item Value Reference Range Interpretation Comments UA Ketones (test code = UA Ketones) 20 mg/dL [facility] [id number] 21:40:00 Test Item Value Reference Range Interpretation Comments UA Bili (test code = Negative *NA*(06/23/22 UA Bili) 4:40 PM) [facility] AND [id number] 21:40:00 Test Item Value Reference Range Interpretation Comments UA Blood (test code = Negative (06/23/22 4:40 UA Blood) PM) [facility] AND [id number] 21:40:00 Test Item Value Reference Range Interpretation Comments UA Urobilinogen (test code = UA no gt 0.1-1.0 Urobilinogen) [facility] AND [id number] 21:40:00 Test Item Value Reference Range Interpretation Comments UA Nitrite (test code Negative (06/23/22 4:40 = UA Nitrite) PM) [facility] AND [id number] 21:40:00 Test Item Value Reference Range Interpretation Comments UA Leuk Est (test code Small *ABN*(06/23/22 = UA Leuk Est) 4:40 PM) [facility] AND [id number] 21:40:00 Test Item Value Reference Range Interpretation Comments UA Sq Epi (test code = UA Sq Epi) Many /LPF [facility] AND [id number] 21:40:00 Test Item Value Reference Range Interpretation Comments UA WBC (test code = 26 See_Comment [Automa delaney message] The UA WBC) system which ge nerated this result transmit delaney reference range : <=5. The reference range was not used to interpr et this result as kiarra l/abnormal. [facility] AND [id number] 21:40:00 Test Item Value Reference Range Interpretation Comments UA RBC (test code = 5 See_Comment [Automa delaney message] The UA RBC) system which ge nerated this result transmit delaney reference range : <=2. The reference range was not used to interpr et this result as kiarra l/abnormal. [facility]TckjdmzRONMOQ7016-81-36 21:33:15 Test Item Value Reference Range Interpretation [...] of the bowel loops.3. Hardware as above. [facility] HospitalMioodsvRLVRLQ4053-22-82 21:33:15 Test Item Value Reference Range Interpretation [...] of the bowel loops.3. Hardware as above. [facility] HospitalRdjklicHTOSFY2668-85-53 21:33:15 Test Item Value Reference Range Interpretation [...] of the bowel loops.3. Hardware as above. [facility] HospitalGahaesxPRRCXH1144-50-49 21:33:15 Test Item Value Reference Range Interpretation [...] of the bowel loops.3. Hardware as above. [facility] HospitalHrzonkuYTDACO7384-71-33 21:33:15 Test Item Value Reference Range Interpretation [...] of the bowel loops.3. Hardware as above. [place] [address]-10-21 21:33:15 Test Item Value Reference Range Interpretation [...] of the bowel loops.3. Hardware as above. [facility] HospitalBzqtihgXJSBBG3270-31-86 21:33:15 Test Item Value Reference Range Interpretation [...] of the bowel loops.3. Hardware as above. [facility] HospitalWuvuianKKHGFX0403-11-18 21:22:43 Test Item Value Reference Range Interpretation Comments RADRPT (test code EXAM: XR CHEST 1 VIEWDATE: = RADRPT) 06/23/2022 15:24INDICATION: - PNACOMPARISON: June 20, 2022TECHNIQUE: AP chestIMPRESSION: The cardiomediastinal silhouette is normal in size. Calcifications in the aortic knob. No pleural effusions or pneumothorax. The lungs are clear. 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 Degenerative changes along the thoracic spine. [facility] HospitalCrgezhsUXYVYQ4102-08-04 21:22:43 Test Item Value Reference Range Interpretation Comments RADRPT (test code EXAM: XR CHEST 1 VIEWDATE: = RADRPT) 06/23/2022 15:24INDICATION: - PNACOMPARISON: June 20, 2022TECHNIQUE: AP chestIMPRESSION: The cardiomediastinal silhouette is normal in size. Calcifications in the aortic knob. No pleural effusions or pneumothorax. The lungs are clear. 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 Degenerative changes along the thoracic spine. [facility] HospitalHeknzfbKOIIKM4943-88-82 21:22:43 Test Item Value Reference Range Interpretation Comments RADRPT (test code EXAM: XR CHEST 1 VIEWDATE: = RADRPT) 06/23/2022 15:24INDICATION: - PNACOMPARISON: June 20, 2022TECHNIQUE: AP chestIMPRESSION: The cardiomediastinal silhouette is normal in size. Calcifications in the aortic knob. No pleural effusions or pneumothorax. The lungs are clear. 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 Degenerative changes along the thoracic spine. [facility] CenterJpwwmhkIPLRXO2503-73-03 21:22:43 Test Item Value Reference Range Interpretation Comments RADRPT (test code EXAM: XR CHEST 1 VIEWDATE: = RADRPT) 06/23/2022 15:24INDICATION: - PNACOMPARISON: June 20, 2022TECHNIQUE: AP chestIMPRESSION: The cardiomediastinal silhouette is normal in size. Calcifications in the aortic knob. No pleural effusions or pneumothorax. The lungs are clear. 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 Degenerative changes along the thoracic spine. [facility] HospitalAqvuqnnJUPFJF5493-38-17 21:22:43 Test Item Value Reference Range Interpretation Comments RADRPT (test code EXAM: XR CHEST 1 VIEWDATE: = RADRPT) 06/23/2022 15:24INDICATION: - PNACOMPARISON: June 20, 2022TECHNIQUE: AP chestIMPRESSION: The cardiomediastinal silhouette is normal in size. Calcifications in the aortic knob. No pleural effusions or pneumothorax. The lungs are clear. 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 Degenerative changes along the thoracic spine. [facility] CenterHhlbzmdPSYIJU4015-59-38 21:22:43 Test Item Value Reference Range Interpretation Comments RADRPT (test code EXAM: XR CHEST 1 VIEWDATE: = RADRPT) 06/23/2022 15:24INDICATION: - PNACOMPARISON: June 20, 2022TECHNIQUE: AP chestIMPRESSION: The cardiomediastinal silhouette is normal in size. Calcifications in the aortic knob. No pleural effusions or pneumothorax. The lungs are clear. 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 Degenerative changes along the thoracic spine. [facility] CenterGzsxhzhOTWQZQ4953-02-00 21:22:43 Test Item Value Reference Range Interpretation Comments RADRPT (test code EXAM: XR CHEST 1 VIEWDATE: = RADRPT) 06/23/2022 15:24INDICATION: - PNACOMPARISON: June 20, 2022TECHNIQUE: AP chestIMPRESSION: The cardiomediastinal silhouette is normal in size. Calcifications in the aortic knob. No pleural effusions or pneumothorax. The lungs are clear. 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 Degenerative changes along the thoracic spine. [facility] CenterEcpafqiKLGJUF5253-44-57 11:58:38 Test Item Value Reference Range Interpretation [...] Salcedo.Toñito Weiss MD On 06/23/2022 06:57:24; [id number] [facility] CenterZetuiwjBSRRSO9628-09-67 11:58:38 Test Item Value Reference Range Interpretation [...] Josephine Weiss MD On 06/23/2022 06:57:24; VR-[id number] [facility] HospitalBjyuwmpKRZNDH1521-80-20 11:58:38 Test Item Value Reference Range Interpretation [...] Salcedo.Toñito Weiss MD On 06/23/2022 06:57:24; [id number] [facility] HospitalKibntsjEFSTER4662-92-85 11:58:38 Test Item Value Reference Range Interpretation [...] Salcedo.Toñito Weiss MD On 06/23/2022 06:57:24; VR-[id number] [facility] HospitalPtdydsxZKMTBD8879-79-49 11:58:38 Test Item Value Reference Range Interpretation [...] Salcedo.Toñito Weiss MD On 06/23/2022 06:57:24; VR[facility][id number] [facility] CenterFhydxiqMWWCYC1122-79-78 11:58:38 Test Item Value Reference Range Interpretation [...] Salcedo.Toñito Weiss MD On 06/23/2022 06:57:24; VR-[id number] [facility] CenterJgviltkNFMMXT8329-52-43 11:58:38 Test Item Value Reference Range Interpretation [...] Salcedo.Toñito Weiss MD On 06/23/2022 06:57:24; [id number] [place] [address]-10-21 11:00:00 Test Item Value Reference Range Interpretation Comments Glucose POC (test code = Glucose POC) 140 70-99 [place] 013132-10-21 11:00:00 Test Item Value Reference Range Interpretation Comments Gluc POC Comment 1 (test code Notified RN/MD = Gluc POC Comment 1) [place] [address]-10-21 11:00:00 Test Item Value Reference Range Interpretation Comments Gluc POC Comment 2 (test code = Cleaned Meter Gluc POC Comment 2) [place] 013132-10-21 11:00:00 Test Item Value Reference Range Interpretation Comments Glucose POC (test code = Glucose POC) 140 70-99 [place] 013132-10-21 11:00:00 Test Item Value Reference Range Interpretation Comments Gluc POC Comment 1 (test code Notified RN/MD = Gluc POC Comment 1) [place] 013132-10-21 11:00:00 Test Item Value Reference Range Interpretation Comments Gluc POC Comment 2 (test code = Cleaned Meter Gluc POC Comment 2) [place] 013132-10-21 11:00:00 Test Item Value Reference Range Interpretation Comments Glucose POC (test code = Glucose POC) 140 70-99 [place] [address]-10-21 11:00:00 Test Item Value Reference Range Interpretation Comments Gluc POC Comment 1 (test code Notified RN/MD = Gluc POC Comment 1) [place] 013132-10-21 11:00:00 Test Item Value Reference Range Interpretation Comments Gluc POC Comment 2 (test code = Cleaned Meter Gluc POC Comment 2) [place] 013132-10-21 11:00:00 Test Item Value Reference Range Interpretation Comments Glucose POC (test code = Glucose POC) 140 70-99 [address]10-21 11:00:00 Test Item Value Reference Range Interpretation Comments Gluc POC Comment 1 (test code Notified RN/MD = Gluc POC Comment 1) [place] 013132-10-21 11:00:00 Test Item Value Reference Range Interpretation Comments Gluc POC Comment 2 (test code = Cleaned Meter Gluc POC Comment 2) [place] 013132-10-21 11:00:00 Test Item Value Reference Range Interpretation Comments Glucose POC (test code = Glucose POC) 140 70-99 [place] 013132-10-21 11:00:00 Test Item Value Reference Range Interpretation Comments Gluc POC Comment 1 (test code Notified RN/MD = Gluc POC Comment 1) [place] [address]-10-21 11:00:00 Test Item Value Reference Range Interpretation Comments Gluc POC Comment 2 (test code = Cleaned Meter Gluc POC Comment 2) [place] 013132-10-21 11:00:00 Test Item Value Reference Range Interpretation Comments Glucose POC (test code = Glucose POC) 140 70-99 [place] 013132-10-21 11:00:00 Test Item Value Reference Range Interpretation Comments Gluc POC Comment 1 (test code Notified RN/MD = Gluc POC Comment 1) [place] 013132-10-21 11:00:00 Test Item Value Reference Range Interpretation Comments Gluc POC Comment 2 (test code = Cleaned Meter Gluc POC Comment 2) [place] 013132-10-21 11:00:00 Test Item Value Reference Range Interpretation Comments Glucose POC (test code = Glucose POC) 140 70-99 [place] 013132-10-21 11:00:00 Test Item Value Reference Range Interpretation Comments Gluc POC Comment 1 (test code Notified RN/MD = Gluc POC Comment 1) [place] 013132-10-21 11:00:00 Test Item Value Reference Range Interpretation Comments Gluc POC Comment 2 (test code = Cleaned Meter Gluc POC Comment 2) [place] [address]-10-21 08:40:00 Test Item Value Reference Range Interpretation Comments Phosphorus (test code = Phosphorus) 1.7 2.5-4.5 [place] 286112-10-21 08:40:00 Test Item Value Reference Range Interpretation Comments Magnesium Lvl (test code = Magnesium 1.8 1.8-2.4 Lvl) [facility]YsctcarRDRRYAZXT3903-79-18 08:40:00 Test Item Value Reference Range Interpretation Comments Glucose Lvl (test code = Glucose Lvl) 155 70-99 [facility] HospitalTuqecaxDPGFQUZBP9664-99-39 08:40:00 Test Item Value Reference Range Interpretation Comments BUN (test code = BUN) 10 7-22 [facility] HospitalAophhnpWHZPAIOTE8654-59-12 08:40:00 Test Item Value Reference Range Interpretation Comments Creatinine Lvl (test code = Creatinine 0.41 0.50-1.40 Lvl) [facility] HospitalPdexihzKZJLMPFMK6503-89-94 08:40:00 Test Item Value Reference Range Interpretation Comments Sodium Lvl (test code = Sodium Lvl) 135 135-145 [facility] HospitalMcncmunNIDPQQEGQ3330-73-87 08:40:00 Test Item Value Reference Range Interpretation Comments Potassium Lvl (test code = Potassium 3.1 3.5-5.1 Lvl) [facility] HospitalXfgpdczTTHZXKMIE6723-50-15 08:40:00 Test Item Value Reference Range Interpretation Comments Chloride Lvl (test code = Chloride Lvl) 103 95-109 [facility] HospitalMdachfzVVRCXEGFO4405-85-77 08:40:00 Test Item Value Reference Range Interpretation Comments CO2 (test code = CO2) 24 24-32 [facility] HospitalBruwvjzBNQIOGIAW5079-32-89 08:40:00 Test Item Value Reference Range Interpretation Comments Calcium Lvl (test code = Calcium Lvl) 8.1 8.5-10.5 [facility] HospitalTtcrhixNDHMRSZIG9981-83-87 08:40:00 Test Item Value Reference Range Interpretation Comments AGAP (test code = AGAP) 11.1 10.0-20.0 [facility] HospitalJwpzqbcIZLDMBHTE2907-79-19 08:40:00 Test Item Value Reference Range Interpretation Comments eGFR (test code = eGFR) 117 [facility] HospitalCvpfyolKDTEHIJHTF5597-18-86 08:40:00 Test Item Value Reference Range Interpretation Comments Hgb (test code = Hgb) 8.5 12.0-16.0 [place] 587612-10-21 08:40:00 Test Item Value Reference Range Interpretation Comments Hct (test code = Hct) 25.6 36.0-48.0 [facility] HospitalYxnrmvwKOSKURKBOJ2405-33-95 08:40:00 Test Item Value Reference Range Interpretation Comments WBC (test code = WBC) 15.4 3.7-10.4 [place] 587612-10-21 08:40:00 Test Item Value Reference Range Interpretation Comments RBC (test code = RBC) 3.02 4.20-5.40 [place] 587612-10-21 08:40:00 Test Item Value Reference Range Interpretation Comments MCV (test code = MCV) 84.7 80.0-98.0 [place] 587612-10-21 08:40:00 Test Item Value Reference Range Interpretation Comments MCH (test code = MCH) 28.6 pg 27.0-31.0 [place] 587612-10-21 08:40:00 Test Item Value Reference Range Interpretation Comments MCHC (test code = MCHC) 33.7 32.0-36.0 [place] 587612-10-21 08:40:00 Test Item Value Reference Range Interpretation Comments RDW (test code = RDW) 12.4 11.5-14.5 [place] 587612-10-21 08:40:00 Test Item Value Reference Range Interpretation Comments Platelet (test code = Platelet) 378 133-450 [facility] HospitalJgkxxxeOOHOFGIOXP0285-92-26 08:40:00 Test Item Value Reference Range Interpretation Comments MPV (test code = MPV) 8.0 7.4-10.4 [place] 587612-10-21 08:40:00 Test Item Value Reference Range Interpretation Comments Segs (test code = Segs) 67.3 45.0-75.0 [place] 587612-10-21 08:40:00 Test Item Value Reference Range Interpretation Comments Lymphocytes (test code = Lymphocytes) 25.2 20.0-40.0 [place] 587612-10-21 08:40:00 Test Item Value Reference Range Interpretation Comments Monocytes (test code = Monocytes) 4.2 2.0-12.0 [place] [address]-10-21 08:40:00 Test Item Value Reference Range Interpretation Comments Eosinophils (test code = 2.8 See_Comment [A utomated message] The Eosinophils) system which ge nerated this result tra nsmitted reference range : <=4.0. The reference r kyle was not used to int erpret this result as normal/abnormal . [facility] HospitalCfjaenfEZVWATLWBF9665-26-08 08:40:00 Test Item Value Reference Range Interpretation Comments Basophils (test code = 0.5 See_Comment [Aut omated message] The Basophils) system which ge nerated this result tra nsmitted reference range : <=1.0. The reference r kyle was not used to int erpret this result as normal/abnormal . [place] 587612-10-21 08:40:00 Test Item Value Reference Range Interpretation Comments Neutrophils # (test code = Neutrophils 10.3 1.5-8.1 #) [facility] HospitalFiictlsMUWDLXXWEP3371-44-02 08:40:00 Test Item Value Reference Range Interpretation Comments Lymphocytes # (test code = Lymphocytes 3.9 1.0-5.5 #) [facility] HospitalWvvtcytTFPAHSUMLG0776-21-67 08:40:00 Test Item Value Reference Range Interpretation Comments Monocytes # (test code 0.6 See_Comment [Aut omated message] The = Monocytes #) system which generated this result tra nsmitted reference range : <=0.8. The reference r kyle was not used to int erpret this result as normal/abnormal . [facility] HospitalTdlzubjLGWHWMNTOL8001-63-62 08:40:00 Test Item Value Reference Range Interpretation Comments Eosinophils # (test code 0.4 See_Comment [A utomated message] The = Eosinophils #) system whic h generated this result tra nsmitted reference range : <=0.5. The reference r kyle was not used to int erpret this result as normal/abnormal . [facility] HospitalJohqsloNXVQELHLUU3253-83-79 08:40:00 Test Item Value Reference Range Interpretation Comments Basophils # (test code 0.1 See_Comment [Aut omated message] The = Basophils #) system which generated this result tra nsmitted reference range : <=0.2. The reference r kyle was not used to int erpret this result as normal/abnormal . [place] 286112-10-21 08:40:00 Test Item Value Reference Range Interpretation Comments Phosphorus (test code = Phosphorus) 1.7 2.5-4.5 [place] 286112-10-21 08:40:00 Test Item Value Reference Range Interpretation Comments Magnesium Lvl (test code = Magnesium 1.8 1.8-2.4 Lvl) [facility] HospitalAqrdwiqRUQKXTDER6128-98-72 08:40:00 Test Item Value Reference Range Interpretation Comments Glucose Lvl (test code = Glucose Lvl) 155 70-99 [place] [address]-10-21 08:40:00 Test Item Value Reference Range Interpretation Comments BUN (test code = BUN) 10 7-22 [place] 286112-10-21 08:40:00 Test Item Value Reference Range Interpretation Comments Creatinine Lvl (test code = Creatinine 0.41 0.50-1.40 Lvl) [place] 286112-10-21 08:40:00 Test Item Value Reference Range Interpretation Comments Sodium Lvl (test code = Sodium Lvl) 135 135-145 [place] 286112-10-21 08:40:00 Test Item Value Reference Range Interpretation Comments Potassium Lvl (test code = Potassium 3.1 3.5-5.1 Lvl) [place] 286112-10-21 08:40:00 Test Item Value Reference Range Interpretation Comments Chloride Lvl (test code = Chloride Lvl) 103 95-109 [place] 286112-10-21 08:40:00 Test Item Value Reference Range Interpretation Comments CO2 (test code = CO2) 24 24-32 [place] 286112-10-21 08:40:00 Test Item Value Reference Range Interpretation Comments Calcium Lvl (test code = Calcium Lvl) 8.1 8.5-10.5 [place] 286112-10-21 08:40:00 Test Item Value Reference Range Interpretation Comments AGAP (test code = AGAP) 11.1 10.0-20.0 [place] 286112-10-21 08:40:00 Test Item Value Reference Range Interpretation Comments eGFR (test code = eGFR) 117 [place] 587612-10-21 08:40:00 Test Item Value Reference Range Interpretation Comments Hgb (test code = Hgb) 8.5 12.0-16.0 [place] 587612-10-21 08:40:00 Test Item Value Reference Range Interpretation Comments Hct (test code = Hct) 25.6 36.0-48.0 [place] 587612-10-21 08:40:00 Test Item Value Reference Range Interpretation Comments WBC (test code = WBC) 15.4 3.7-10.4 [facility] HospitalLlryyegMJXGPLLXCQ8677-77-98 08:40:00 Test Item Value Reference Range Interpretation Comments RBC (test code = RBC) 3.02 4.20-5.40 [facility] HospitalRyhffhoOMUJNOSICL2881-79-78 08:40:00 Test Item Value Reference Range Interpretation Comments MCV (test code = MCV) 84.7 80.0-98.0 [facility] HospitalCotbvcpRDTKSQVYBT9909-12-82 08:40:00 Test Item Value Reference Range Interpretation Comments MCH (test code = MCH) 28.6 pg 27.0-31.0 [facility] HospitalJqblqvuSQPBGAQGPU2844-51-58 08:40:00 Test Item Value Reference Range Interpretation Comments MCHC (test code = MCHC) 33.7 32.0-36.0 [facility] HospitalPhjxyenVYOVLNOOWE9934-23-78 08:40:00 Test Item Value Reference Range Interpretation Comments RDW (test code = RDW) 12.4 11.5-14.5 [facility] HospitalKhdowiwOLISSNWHLS5871-90-61 08:40:00 Test Item Value Reference Range Interpretation Comments Platelet (test code = Platelet) 378 133-450 [facility] HospitalGshvpedTXUYMSNVCK6511-18-03 08:40:00 Test Item Value Reference Range Interpretation Comments MPV (test code = MPV) 8.0 7.4-10.4 [facility] HospitalVoeobqgRNRINRFUCT2228-05-66 08:40:00 Test Item Value Reference Range Interpretation Comments Segs (test code = Segs) 67.3 45.0-75.0 [facility] HospitalMyicssxSJZPRRMWYZ7801-00-95 08:40:00 Test Item Value Reference Range Interpretation Comments Lymphocytes (test code = Lymphocytes) 25.2 20.0-40.0 [place] 587612-10-21 08:40:00 Test Item Value Reference Range Interpretation Comments Monocytes (test code = Monocytes) 4.2 2.0-12.0 [place] 587612-10-21 08:40:00 Test Item Value Reference Range Interpretation Comments Eosinophils (test code = 2.8 See_Comment [A utomated message] The Eosinophils) system which ge nerated this result tra nsmitted reference range : <=4.0. The reference r klye was not used to int erpret this result as normal/abnormal . [place] [address]-10-21 08:40:00 Test Item Value Reference Range Interpretation Comments Basophils (test code = 0.5 See_Comment [Aut omated message] The Basophils) system which ge nerated this result tra nsmitted reference range : <=1.0. The reference r kyle was not used to int erpret this result as normal/abnormal . [place] 587612-10-21 08:40:00 Test Item Value Reference Range Interpretation Comments Neutrophils # (test code = Neutrophils 10.3 1.5-8.1 #) [place] 587612-10-21 08:40:00 Test Item Value Reference Range Interpretation Comments Lymphocytes # (test code = Lymphocytes 3.9 1.0-5.5 #) [place] 587612-10-21 08:40:00 Test Item Value Reference Range Interpretation Comments Monocytes # (test code 0.6 See_Comment [Aut omated message] The = Monocytes #) system which generated this result tra nsmitted reference range : <=0.8. The reference r kyle was not used to int erpret this result as normal/abnormal . [place] 587612-10-21 08:40:00 Test Item Value Reference Range Interpretation Comments Eosinophils # (test code 0.4 See_Comment [A utomated message] The = Eosinophils #) system whic h generated this result tra nsmitted reference range : <=0.5. The reference r kyle was not used to int erpret this result as normal/abnormal . [facility] HospitalPovtuapCIDOWANOFK3409-00-30 08:40:00 Test Item Value Reference Range Interpretation Comments Basophils # (test code 0.1 See_Comment [Aut omated message] The = Basophils #) system which generated this result tra nsmitted reference range : <=0.2. The reference r kyle was not used to int erpret this result as normal/abnormal . [place] 286112-10-21 08:40:00 Test Item Value Reference Range Interpretation Comments Phosphorus (test code = Phosphorus) 1.7 2.5-4.5 [place] 286112-10-21 08:40:00 Test Item Value Reference Range Interpretation Comments Magnesium Lvl (test code = Magnesium 1.8 1.8-2.4 Lvl) [place] [address]-10-21 08:40:00 Test Item Value Reference Range Interpretation Comments Glucose Lvl (test code = Glucose Lvl) 155 70-99 [place] 286112-10-21 08:40:00 Test Item Value Reference Range Interpretation Comments BUN (test code = BUN) 10 7-22 [place] 286112-10-21 08:40:00 Test Item Value Reference Range Interpretation Comments Creatinine Lvl (test code = Creatinine 0.41 0.50-1.40 Lvl) [facility] HospitalJunrvgrKJHUCPYVS4878-66-79 08:40:00 Test Item Value Reference Range Interpretation Comments Sodium Lvl (test code = Sodium Lvl) 135 135-145 [place] 286112-10-21 08:40:00 Test Item Value Reference Range Interpretation Comments Potassium Lvl (test code = Potassium 3.1 3.5-5.1 Lvl) [facility] HospitalVnlzocfHUMYYQMPT8667-30-68 08:40:00 Test Item Value Reference Range Interpretation Comments Chloride Lvl (test code = Chloride Lvl) 103 95-109 [facility] HospitalDvpzmmmKQLJFFUII8644-78-79 08:40:00 Test Item Value Reference Range Interpretation Comments CO2 (test code = CO2) 24 24-32 [facility] HospitalKdatuxsTPDTAWJRH8178-20-70 08:40:00 Test Item Value Reference Range Interpretation Comments Calcium Lvl (test code = Calcium Lvl) 8.1 8.5-10.5 [place] 286112-10-21 08:40:00 Test Item Value Reference Range Interpretation Comments AGAP (test code = AGAP) 11.1 10.0-20.0 [place] 286112-10-21 08:40:00 Test Item Value Reference Range Interpretation Comments eGFR (test code = eGFR) 117 [facility] HospitalSgqgcipNLKHILSLLL0062-56-39 08:40:00 Test Item Value Reference Range Interpretation Comments Hgb (test code = Hgb) 8.5 12.0-16.0 [place] 587612-10-21 08:40:00 Test Item Value Reference Range Interpretation Comments Hct (test code = Hct) 25.6 36.0-48.0 [place] 587612-10-21 08:40:00 Test Item Value Reference Range Interpretation Comments WBC (test code = WBC) 15.4 3.7-10.4 [place] [address]-10-21 08:40:00 Test Item Value Reference Range Interpretation Comments RBC (test code = RBC) 3.02 4.20-5.40 [place] [address]-10-21 08:40:00 Test Item Value Reference Range Interpretation Comments MCV (test code = MCV) 84.7 80.0-98.0 [place] 66519-10-21 08:40:00 Test Item Value Reference Range Interpretation Comments MCH (test code = MCH) 28.6 pg 27.0-31.0 [place] [address]-10-21 08:40:00 Test Item Value Reference Range Interpretation Comments MCHC (test code = MCHC) 33.7 32.0-36.0 [place] 587612-10-21 08:40:00 Test Item Value Reference Range Interpretation Comments RDW (test code = RDW) 12.4 11.5-14.5 [place] [address]-10-21 08:40:00 Test Item Value Reference Range Interpretation Comments Platelet (test code = Platelet) 378 133-450 [place] 587612-10-21 08:40:00 Test Item Value Reference Range Interpretation Comments MPV (test code = MPV) 8.0 7.4-10.4 [place] 587612-10-21 08:40:00 Test Item Value Reference Range Interpretation Comments Segs (test code = Segs) 67.3 45.0-75.0 [place] 587612-10-21 08:40:00 Test Item Value Reference Range Interpretation Comments Lymphocytes (test code = Lymphocytes) 25.2 20.0-40.0 [place] [address]-10-21 08:40:00 Test Item Value Reference Range Interpretation Comments Monocytes (test code = Monocytes) 4.2 2.0-12.0 [place] [address]-10-21 08:40:00 Test Item Value Reference Range Interpretation Comments Eosinophils (test code = 2.8 See_Comment [A utomated message] The Eosinophils) system which ge nerated this result tra nsmitted reference range : <=4.0. The reference r kyle was not used to int erpret this result as normal/abnormal . [place] 587612-10-21 08:40:00 Test Item Value Reference Range Interpretation Comments Basophils (test code = 0.5 See_Comment [Aut omated message] The Basophils) system which ge nerated this result tra nsmitted reference range : <=1.0. The reference r kyle was not used to int erpret this result as normal/abnormal . [place] 587612-10-21 08:40:00 Test Item Value Reference Range Interpretation Comments Neutrophils # (test code = Neutrophils 10.3 1.5-8.1 #) [facility]ouDBANYRBUZR2842-91-32 08:40:00 Test Item Value Reference Range Interpretation Comments Lymphocytes # (test code = Lymphocytes 3.9 1.0-5.5 #) [facility]QfrhfzfDVVKDNIWMW8555-93-23 08:40:00 Test Item Value Reference Range Interpretation Comments Monocytes # (test code 0.6 See_Comment [Aut omated message] The = Monocytes #) system which generated this result tra nsmitted reference range : <=0.8. The reference r kyle was not used to int erpret this result as normal/abnormal . [facility] HospitalHelhqcyZGSNSHLDXC4454-20-76 08:40:00 Test Item Value Reference Range Interpretation Comments Eosinophils # (test code 0.4 See_Comment [A utomated message] The = Eosinophils #) system whic h generated this result tra nsmitted reference range : <=0.5. The reference r kyle was not used to int erpret this result as normal/abnormal . [facility] HospitalIzgpynkZMPYKRAFLC6758-99-70 08:40:00 Test Item Value Reference Range Interpretation Comments Basophils # (test code 0.1 See_Comment [Aut omated message] The = Basophils #) system which generated this result tra nsmitted reference range : <=0.2. The reference r kyle was not used to int erpret this result as normal/abnormal . [facility]SektwmuARBEWPDUW2531-88-47 08:40:00 Test Item Value Reference Range Interpretation Comments Phosphorus (test code = Phosphorus) 1.7 2.5-4.5 [place] 286112-10-21 08:40:00 Test Item Value Reference Range Interpretation Comments Magnesium Lvl (test code = Magnesium 1.8 1.8-2.4 Lvl) [place] 286112-10-21 08:40:00 Test Item Value Reference Range Interpretation Comments Glucose Lvl (test code = Glucose Lvl) 155 70-99 [facility] HospitalZtzcdgjYPNXMTGTG2316-14-12 08:40:00 Test Item Value Reference Range Interpretation Comments BUN (test code = BUN) 10 7-22 [facility] HospitalKfxikggHLBHLQKBU3343-43-77 08:40:00 Test Item Value Reference Range Interpretation Comments Creatinine Lvl (test code = Creatinine 0.41 0.50-1.40 Lvl) [facility] HospitalHewpireFARFFHOIK2480-83-19 08:40:00 Test Item Value Reference Range Interpretation Comments Sodium Lvl (test code = Sodium Lvl) 135 135-145 [place] 286112-10-21 08:40:00 Test Item Value Reference Range Interpretation Comments Potassium Lvl (test code = Potassium 3.1 3.5-5.1 Lvl) [facility] HospitalLmsrgfySUHQGHQFP6725-72-31 08:40:00 Test Item Value Reference Range Interpretation Comments Chloride Lvl (test code = Chloride Lvl) 103 95-109 [facility] HospitalVfdzyfuSUGVXTNUJ8015-70-67 08:40:00 Test Item Value Reference Range Interpretation Comments CO2 (test code = CO2) 24 24-32 [facility] HospitalVvxvuuaMXOATUTZF1137-77-81 08:40:00 Test Item Value Reference Range Interpretation Comments Calcium Lvl (test code = Calcium Lvl) 8.1 8.5-10.5 [facility] HospitalLrjwsqtAEHJNCQFE5984-06-90 08:40:00 Test Item Value Reference Range Interpretation Comments AGAP (test code = AGAP) 11.1 10.0-20.0 [facility] HospitalUaoxwuqZRXDTXGST8761-37-76 08:40:00 Test Item Value Reference Range Interpretation Comments eGFR (test code = eGFR) 117 [facility] HospitalFjxkadgJVUQRYHOIX1127-26-15 08:40:00 Test Item Value Reference Range Interpretation Comments Hgb (test code = Hgb) 8.5 12.0-16.0 [place] 587612-10-21 08:40:00 Test Item Value Reference Range Interpretation Comments Hct (test code = Hct) 25.6 36.0-48.0 [place] 587612-10-21 08:40:00 Test Item Value Reference Range Interpretation Comments WBC (test code = WBC) 15.4 3.7-10.4 [place] 587612-10-21 08:40:00 Test Item Value Reference Range Interpretation Comments RBC (test code = RBC) 3.02 4.20-5.40 [place] 587612-10-21 08:40:00 Test Item Value Reference Range Interpretation Comments MCV (test code = MCV) 84.7 80.0-98.0 [place] 587612-10-21 08:40:00 Test Item Value Reference Range Interpretation Comments MCH (test code = MCH) 28.6 pg 27.0-31.0 [place] 587612-10-21 08:40:00 Test Item Value Reference Range Interpretation Comments MCHC (test code = MCHC) 33.7 32.0-36.0 [place] 587612-10-21 08:40:00 Test Item Value Reference Range Interpretation Comments RDW (test code = RDW) 12.4 11.5-14.5 [facility] HospitalWkqmnnkCNADWPPNEU4843-87-70 08:40:00 Test Item Value Reference Range Interpretation Comments Platelet (test code = Platelet) 378 133-450 [facility] HospitalEjvsfyiDZGKADXNVP7332-80-26 08:40:00 Test Item Value Reference Range Interpretation Comments MPV (test code = MPV) 8.0 7.4-10.4 [facility] HospitalUvnzggdROGOHUPJUG2355-99-57 08:40:00 Test Item Value Reference Range Interpretation Comments Segs (test code = Segs) 67.3 45.0-75.0 [facility] HospitalJnxkmueNFDDOBMOCT3101-42-01 08:40:00 Test Item Value Reference Range Interpretation Comments Lymphocytes (test code = Lymphocytes) 25.2 20.0-40.0 [place] 587612-10-21 08:40:00 Test Item Value Reference Range Interpretation Comments Monocytes (test code = Monocytes) 4.2 2.0-12.0 [place] [address]-10-21 08:40:00 Test Item Value Reference Range Interpretation Comments Eosinophils (test code = 2.8 See_Comment [A utomated message] The Eosinophils) system which ge nerated this result tra nsmitted reference range : <=4.0. The reference r kyle was not used to int erpret this result as normal/abnormal . [facility] HospitalGidhagtRTEZOCUJAL4381-57-53 08:40:00 Test Item Value Reference Range Interpretation Comments Basophils (test code = 0.5 See_Comment [Aut omated message] The Basophils) system which ge nerated this result tra nsmitted reference range : <=1.0. The reference r kyle was not used to int erpret this result as normal/abnormal . [place] [address]-10-21 08:40:00 Test Item Value Reference Range Interpretation Comments Neutrophils # (test code = Neutrophils 10.3 1.5-8.1 #) [place] 587612-10-21 08:40:00 Test Item Value Reference Range Interpretation Comments Lymphocytes # (test code = Lymphocytes 3.9 1.0-5.5 #) [place] 587612-10-21 08:40:00 Test Item Value Reference Range Interpretation Comments Monocytes # (test code 0.6 See_Comment [Aut omated message] The = Monocytes #) system which generated this result tra nsmitted reference range : <=0.8. The reference r kyle was not used to int erpret this result as normal/abnormal . [place] [address]-10-21 08:40:00 Test Item Value Reference Range Interpretation Comments Eosinophils # (test code 0.4 See_Comment [A utomated message] The = Eosinophils #) system whic h generated this result tra nsmitted reference range : <=0.5. The reference r kyle was not used to int erpret this result as normal/abnormal . [place] [address]-10-21 08:40:00 Test Item Value Reference Range Interpretation Comments Basophils # (test code 0.1 See_Comment [Aut omated message] The = Basophils #) system which generated this result tra nsmitted reference range : <=0.2. The reference r kyle was not used to int erpret this result as normal/abnormal . [place] 286112-10-21 08:40:00 Test Item Value Reference Range Interpretation Comments Phosphorus (test code = Phosphorus) 1.7 2.5-4.5 [place] 286112-10-21 08:40:00 Test Item Value Reference Range Interpretation Comments Magnesium Lvl (test code = Magnesium 1.8 1.8-2.4 Lvl) [place] 8[address]-10-21 08:40:00 Test Item Value Reference Range Interpretation Comments Glucose Lvl (test code = Glucose Lvl) 155 70-99 [facility] HospitalXaetoyeHZCAZKCIW2055-91-95 08:40:00 Test Item Value Reference Range Interpretation Comments BUN (test code = BUN) 10 7-22 [place] 286112-10-21 08:40:00 Test Item Value Reference Range Interpretation Comments Creatinine Lvl (test code = Creatinine 0.41 0.50-1.40 Lvl) [facility] HospitalXfxbbphAGMOOOGAY2384-61-63 08:40:00 Test Item Value Reference Range Interpretation Comments Sodium Lvl (test code = Sodium Lvl) 135 135-145 [place] 8[address]-10-21 08:40:00 Test Item Value Reference Range Interpretation Comments Potassium Lvl (test code = Potassium 3.1 3.5-5.1 Lvl) [facility] HospitalWswzvrvPKNSVEVIE4423-03-11 08:40:00 Test Item Value Reference Range Interpretation Comments Chloride Lvl (test code = Chloride Lvl) 103 95-109 [place] 286112-10-21 08:40:00 Test Item Value Reference Range Interpretation Comments CO2 (test code = CO2) 24 24-32 [place] 286112-10-21 08:40:00 Test Item Value Reference Range Interpretation Comments Calcium Lvl (test code = Calcium Lvl) 8.1 8.5-10.5 [facility] HospitalYvkxaeeDUWUPHLHB8165-58-07 08:40:00 Test Item Value Reference Range Interpretation Comments AGAP (test code = AGAP) 11.1 10.0-20.0 [facility] HospitalInkrjdyUHEBRAANF2777-38-91 08:40:00 Test Item Value Reference Range Interpretation Comments eGFR (test code = eGFR) 117 [place] 587612-10-21 08:40:00 Test Item Value Reference Range Interpretation Comments Hgb (test code = Hgb) 8.5 12.0-16.0 [place] [address]-10-21 08:40:00 Test Item Value Reference Range Interpretation Comments Hct (test code = Hct) 25.6 36.0-48.0 [place] 587612-10-21 08:40:00 Test Item Value Reference Range Interpretation Comments WBC (test code = WBC) 15.4 3.7-10.4 [place] 587612-10-21 08:40:00 Test Item Value Reference Range Interpretation Comments RBC (test code = RBC) 3.02 4.20-5.40 [place] 587612-10-21 08:40:00 Test Item Value Reference Range Interpretation Comments MCV (test code = MCV) 84.7 80.0-98.0 [place] [address]-10-21 08:40:00 Test Item Value Reference Range Interpretation Comments MCH (test code = MCH) 28.6 pg 27.0-31.0 [place] [address]-10-21 08:40:00 Test Item Value Reference Range Interpretation Comments MCHC (test code = MCHC) 33.7 32.0-36.0 [place] [address]-10-21 08:40:00 Test Item Value Reference Range Interpretation Comments RDW (test code = RDW) 12.4 11.5-14.5 [place] [address]-10-21 08:40:00 Test Item Value Reference Range Interpretation Comments Platelet (test code = Platelet) 378 133-450 [place] 587612-10-21 08:40:00 Test Item Value Reference Range Interpretation Comments MPV (test code = MPV) 8.0 7.4-10.4 [place] [address]-10-21 08:40:00 Test Item Value Reference Range Interpretation Comments Segs (test code = Segs) 67.3 45.0-75.0 [place] [address]-10-21 08:40:00 Test Item Value Reference Range Interpretation Comments Lymphocytes (test code = Lymphocytes) 25.2 20.0-40.0 [place] [address]-10-21 08:40:00 Test Item Value Reference Range Interpretation Comments Monocytes (test code = Monocytes) 4.2 2.0-12.0 [place] [address]-10-21 08:40:00 Test Item Value Reference Range Interpretation Comments Eosinophils (test code = 2.8 See_Comment [A utomated message] The Eosinophils) system which ge nerated this result tra nsmitted reference range : <=4.0. The reference r kyle was not used to int erpret this result as normal/abnormal . [place] 587612-10-21 08:40:00 Test Item Value Reference Range Interpretation Comments Basophils (test code = 0.5 See_Comment [Aut omated message] The Basophils) system which ge nerated this result tra nsmitted reference range : <=1.0. The reference r kyle was not used to int erpret this result as normal/abnormal . [facility] HospitalOfahvskZAEBFBNZKF9518-00-91 08:40:00 Test Item Value Reference Range Interpretation Comments Neutrophils # (test code = Neutrophils 10.3 1.5-8.1 #) [facility] HospitalNejohfaVTUWLDZIUA6882-73-55 08:40:00 Test Item Value Reference Range Interpretation Comments Lymphocytes # (test code = Lymphocytes 3.9 1.0-5.5 #) [facility] HospitalPkrogabENPNGVFXZY5270-69-30 08:40:00 Test Item Value Reference Range Interpretation Comments Monocytes # (test code 0.6 See_Comment [Aut omated message] The = Monocytes #) system which generated this result tra nsmitted reference range : <=0.8. The reference r kyle was not used to int erpret this result as normal/abnormal . [facility] HospitalCcregxmMPMLQEKWRU0217-85-16 08:40:00 Test Item Value Reference Range Interpretation Comments Eosinophils # (test code 0.4 See_Comment [A utomated message] The = Eosinophils #) system whic h generated this result tra nsmitted reference range : <=0.5. The reference r kyle was not used to int erpret this result as normal/abnormal . [facility] HospitalZgwyqmwTLPISKNAHV5832-25-72 08:40:00 Test Item Value Reference Range Interpretation Comments Basophils # (test code 0.1 See_Comment [Aut omated message] The = Basophils #) system which generated this result tra nsmitted reference range : <=0.2. The reference r kyle was not used to int erpret this result as normal/abnormal . [facility]MzcztuhZLHFTQNCE5138-82-14 08:40:00 Test Item Value Reference Range Interpretation Comments Phosphorus (test code = Phosphorus) 1.7 2.5-4.5 [place] 286112-10-21 08:40:00 Test Item Value Reference Range Interpretation Comments Magnesium Lvl (test code = Magnesium 1.8 1.8-2.4 Lvl) [facility] HospitalTzrqflmNWYBMTGLO9248-55-10 08:40:00 Test Item Value Reference Range Interpretation Comments Glucose Lvl (test code = Glucose Lvl) 155 70-99 [place] 8[address]-10-21 08:40:00 Test Item Value Reference Range Interpretation Comments BUN (test code = BUN) 10 7-22 [facility] HospitalFnnvyylXLZAVSOGJ9729-87-66 08:40:00 Test Item Value Reference Range Interpretation Comments Creatinine Lvl (test code = Creatinine 0.41 0.50-1.40 Lvl) [facility] HospitalGssgyvlFCGXDXOEH0790-40-77 08:40:00 Test Item Value Reference Range Interpretation Comments Sodium Lvl (test code = Sodium Lvl) 135 135-145 [place] 286112-10-21 08:40:00 Test Item Value Reference Range Interpretation Comments Potassium Lvl (test code = Potassium 3.1 3.5-5.1 Lvl) [facility] HospitalDtfubmxENPIOCKYR6386-23-48 08:40:00 Test Item Value Reference Range Interpretation Comments Chloride Lvl (test code = Chloride Lvl) 103 95-109 [facility] HospitalBgagiihAQSCLTKKL5912-93-19 08:40:00 Test Item Value Reference Range Interpretation Comments CO2 (test code = CO2) 24 24-32 [place] 286112-10-21 08:40:00 Test Item Value Reference Range Interpretation Comments Calcium Lvl (test code = Calcium Lvl) 8.1 8.5-10.5 [facility] HospitalPqktyjgRZVZDRYKM2356-65-08 08:40:00 Test Item Value Reference Range Interpretation Comments AGAP (test code = AGAP) 11.1 10.0-20.0 [facility] HospitalBqiwyzvBLGCVJZGT3608-47-21 08:40:00 Test Item Value Reference Range Interpretation Comments eGFR (test code = eGFR) 117 [facility] HospitalOdsoxvvMWIDTDSWVF3228-46-82 08:40:00 Test Item Value Reference Range Interpretation Comments Hgb (test code = Hgb) 8.5 12.0-16.0 [place] [address]-10-21 08:40:00 Test Item Value Reference Range Interpretation Comments Hct (test code = Hct) 25.6 36.0-48.0 [place] 587612-10-21 08:40:00 Test Item Value Reference Range Interpretation Comments WBC (test code = WBC) 15.4 3.7-10.4 [place] 587612-10-21 08:40:00 Test Item Value Reference Range Interpretation Comments RBC (test code = RBC) 3.02 4.20-5.40 [facility] HospitalYgmgucxTRFDCGVNWM8352-22-03 08:40:00 Test Item Value Reference Range Interpretation Comments MCV (test code = MCV) 84.7 80.0-98.0 [place] 587612-10-21 08:40:00 Test Item Value Reference Range Interpretation Comments MCH (test code = MCH) 28.6 pg 27.0-31.0 [place] 587612-10-21 08:40:00 Test Item Value Reference Range Interpretation Comments MCHC (test code = MCHC) 33.7 32.0-36.0 [place] 587612-10-21 08:40:00 Test Item Value Reference Range Interpretation Comments RDW (test code = RDW) 12.4 11.5-14.5 [place] 587612-10-21 08:40:00 Test Item Value Reference Range Interpretation Comments Platelet (test code = Platelet) 378 133-450 [facility] HospitalZzpowuhARBZITPUCX2818-61-50 08:40:00 Test Item Value Reference Range Interpretation Comments MPV (test code = MPV) 8.0 7.4-10.4 [place] 587612-10-21 08:40:00 Test Item Value Reference Range Interpretation Comments Segs (test code = Segs) 67.3 45.0-75.0 [facility] HospitalFcqhvupMZJHLLEOIN6712-27-37 08:40:00 Test Item Value Reference Range Interpretation Comments Lymphocytes (test code = Lymphocytes) 25.2 20.0-40.0 [place] 587612-10-21 08:40:00 Test Item Value Reference Range Interpretation Comments Monocytes (test code = Monocytes) 4.2 2.0-12.0 [place] [address]-10-21 08:40:00 Test Item Value Reference Range Interpretation Comments Eosinophils (test code = 2.8 See_Comment [A utomated message] The Eosinophils) system which ge nerated this result tra nsmitted reference range : <=4.0. The reference r kyle was not used to int erpret this result as normal/abnormal . [place] 587612-10-21 08:40:00 Test Item Value Reference Range Interpretation Comments Basophils (test code = 0.5 See_Comment [Aut omated message] The Basophils) system which ge nerated this result tra nsmitted reference range : <=1.0. The reference r kyle was not used to int erpret this result as normal/abnormal . [place] [address]-10-21 08:40:00 Test Item Value Reference Range Interpretation Comments Neutrophils # (test code = Neutrophils 10.3 1.5-8.1 #) [place] 587612-10-21 08:40:00 Test Item Value Reference Range Interpretation Comments Lymphocytes # (test code = Lymphocytes 3.9 1.0-5.5 #) [place] [address]-10-21 08:40:00 Test Item Value Reference Range Interpretation Comments Monocytes # (test code 0.6 See_Comment [Aut omated message] The = Monocytes #) system which generated this result tra nsmitted reference range : <=0.8. The reference r kyle was not used to int erpret this result as normal/abnormal . [place] [address]-10-21 08:40:00 Test Item Value Reference Range Interpretation Comments Eosinophils # (test code 0.4 See_Comment [A utomated message] The = Eosinophils #) system whic h generated this result tra nsmitted reference range : <=0.5. The reference r kyle was not used to int erpret this result as normal/abnormal . [place] [address]-10-21 08:40:00 Test Item Value Reference Range Interpretation Comments Basophils # (test code 0.1 See_Comment [Aut omated message] The = Basophils #) system which generated this result tra nsmitted reference range : <=0.2. The reference r kyle was not used to int erpret this result as normal/abnormal . [place] 8[address]-10-21 08:40:00 Test Item Value Reference Range Interpretation Comments Phosphorus (test code = Phosphorus) 1.7 2.5-4.5 [place] [address]-10-21 08:40:00 Test Item Value Reference Range Interpretation Comments Magnesium Lvl (test code = Magnesium 1.8 1.8-2.4 Lvl) [place] 8[address]-10-21 08:40:00 Test Item Value Reference Range Interpretation Comments Glucose Lvl (test code = Glucose Lvl) 155 70-99 [place] 8[address]-10-21 08:40:00 Test Item Value Reference Range Interpretation Comments BUN (test code = BUN) 10 7-22 [facility] HospitalTukkaczNMEFRHYAS1338-38-06 08:40:00 Test Item Value Reference Range Interpretation Comments Creatinine Lvl (test code = Creatinine 0.41 0.50-1.40 Lvl) [facility] HospitalVhpdmenAPYITMQLI2712-42-00 08:40:00 Test Item Value Reference Range Interpretation Comments Sodium Lvl (test code = Sodium Lvl) 135 135-145 [facility] HospitalTtkappvSCNHANENW4926-69-37 08:40:00 Test Item Value Reference Range Interpretation Comments Potassium Lvl (test code = Potassium 3.1 3.5-5.1 Lvl) [facility] HospitalFdpdikaJKJFJUHEX3909-48-34 08:40:00 Test Item Value Reference Range Interpretation Comments Chloride Lvl (test code = Chloride Lvl) 103 95-109 [facility] HospitalQzbkdlkZSJLIKZJS4759-82-59 08:40:00 Test Item Value Reference Range Interpretation Comments CO2 (test code = CO2) 24 24-32 [facility] HospitalJkwnmqdKOTIJVTMZ3312-71-55 08:40:00 Test Item Value Reference Range Interpretation Comments Calcium Lvl (test code = Calcium Lvl) 8.1 8.5-10.5 [facility] HospitalJojoesuAZIIDOEKW5066-68-13 08:40:00 Test Item Value Reference Range Interpretation Comments AGAP (test code = AGAP) 11.1 10.0-20.0 [facility] HospitalUowwooeZYXGWCUGZ1367-95-05 08:40:00 Test Item Value Reference Range Interpretation Comments eGFR (test code = eGFR) 117 [facility] HospitalGhrksmfGILLCDIVJF6935-69-40 08:40:00 Test Item Value Reference Range Interpretation Comments Hgb (test code = Hgb) 8.5 12.0-16.0 [place] 587612-10-21 08:40:00 Test Item Value Reference Range Interpretation Comments Hct (test code = Hct) 25.6 36.0-48.0 [place] 587612-10-21 08:40:00 Test Item Value Reference Range Interpretation Comments WBC (test code = WBC) 15.4 3.7-10.4 [facility] HospitalLyftfgvPOYGPTLGQE5465-83-62 08:40:00 Test Item Value Reference Range Interpretation Comments RBC (test code = RBC) 3.02 4.20-5.40 [place] 587612-10-21 08:40:00 Test Item Value Reference Range Interpretation Comments MCV (test code = MCV) 84.7 80.0-98.0 [place] [address]-10-21 08:40:00 Test Item Value Reference Range Interpretation Comments MCH (test code = MCH) 28.6 pg 27.0-31.0 [place] [address]-10-21 08:40:00 Test Item Value Reference Range Interpretation Comments MCHC (test code = MCHC) 33.7 32.0-36.0 [place] [address]-10-21 08:40:00 Test Item Value Reference Range Interpretation Comments RDW (test code = RDW) 12.4 11.5-14.5 [place] 587612-10-21 08:40:00 Test Item Value Reference Range Interpretation Comments Platelet (test code = Platelet) 378 133-450 [place] 587612-10-21 08:40:00 Test Item Value Reference Range Interpretation Comments MPV (test code = MPV) 8.0 7.4-10.4 [place] [address]-10-21 08:40:00 Test Item Value Reference Range Interpretation Comments Segs (test code = Segs) 67.3 45.0-75.0 [place] [address]-10-21 08:40:00 Test Item Value Reference Range Interpretation Comments Lymphocytes (test code = Lymphocytes) 25.2 20.0-40.0 [place] [address]-10-21 08:40:00 Test Item Value Reference Range Interpretation Comments Monocytes (test code = Monocytes) 4.2 2.0-12.0 [place] [address]-10-21 08:40:00 Test Item Value Reference Range Interpretation Comments Eosinophils (test code = 2.8 See_Comment [A utomated message] The Eosinophils) system which ge nerated this result tra nsmitted reference range : <=4.0. The reference r kyle was not used to int erpret this result as normal/abnormal . [place] [address]-10-21 08:40:00 Test Item Value Reference Range Interpretation Comments Basophils (test code = 0.5 See_Comment [Aut omated message] The Basophils) system which ge nerated this result tra nsmitted reference range : <=1.0. The reference r kyle was not used to int erpret this result as normal/abnormal . [id number] 08:40:00 Test Item Value Reference Range Interpretation Comments Neutrophils # (test code = Neutrophils 10.3 1.5-8.1 #) [id number] 08:40:00 Test Item Value Reference Range Interpretation Comments Lymphocytes # (test code = Lymphocytes 3.9 1.0-5.5 #) [facility] H[id number] 08:40:00 Test Item Value Reference Range Interpretation Comments Monocytes # (test code 0.6 See_Comment [Aut omated message] The = Monocytes #) system which generated this result tra nsmitted reference range : <=0.8. The reference r kyle was not used to int erpret this result as normal/abnormal . [id number] 08:40:00 Test Item Value Reference Range Interpretation Comments Eosinophils # (test code 0.4 See_Comment [A utomated message] The = Eosinophils #) system whic h generated this result tra nsmitted reference range : <=0.5. The reference r kyle was not used to int erpret this result as normal/abnormal . [facility] H[id number] 08:40:00 Test Item Value Reference Range Interpretation Comments Basophils # (test code 0.1 See_Comment [Aut omated message] The = Basophils #) system which generated this result tra nsmitted reference range : <=0.2. The reference r kyle was not used to int erpret this result as normal/abnormal . [id number] 17:06:00 Test Item Value Reference Range Interpretation Comments Trig (test code = Trig) 94 [facility] [id number] 17:06:00 Test Item Value Reference Range Interpretation Comments Trig (test code = Trig) 94 [facility] H[id number] 17:06:00 Test Item Value Reference Range Interpretation Comments Trig (test code = Trig) 94 [facility] Ho[id number] 17:06:00 Test Item Value Reference Range Interpretation Comments Trig (test code = Trig) 94 [facility] Hospi[id number] 17:06:00 Test Item Value Reference Range Interpretation Comments Trig (test code = Trig) 94 [facility] [id number] 17:06:00 Test Item Value Reference Range Interpretation Comments Trig (test code = Trig) 94 [facility] [id number] 17:06:00 Test Item Value Reference Range Interpretation Comments Trig (test code = Trig) 94 [facility]TOBR[facility]YC[facility]C:PT:ISOLATE:ORDQN:[id number] 15:03:00 Test Item Value Reference Range Interpretation Comments Culture: Urine (test >100,000 CFU/mL code = Culture: Escherichia coli Urine) [facility]TOBRAMYCIN:[facility]USC:PT:ISOLATE:ORDQN:[id number] 15:03:00 Test Item Value Reference Range Interpretation Comments Escherichia coli (test code Escherichia coli = Escherichia coli) [facility] [id number] 15:03:00 Test Item Value Reference Range Interpretation Comments UA Color (test code = Yellow *NA*(06/22/22 UA Color) 10:03 AM) [facility] [id number] 15:03:00 Test Item Value Reference Range Interpretation Comments UA Turbidity (test code Slight Cloudy = UA Turbidity) (06/22/22 10:03 AM) [facility] [id number] 15:03:00 Test Item Value Reference Range Interpretation Comments UA Spec Grav (test code = UA Spec 1.020 1 Grav) [facility] [id number] 15:03:00 Test Item Value Reference Range Interpretation Comments UA pH (test code = UA pH) 6.0 1 5.0-8.0 [facility] [id number] 15:03:00 Test Item Value Reference Range Interpretation Comments UA Protein (test code Negative (06/22/22 = UA Protein) 10:03 AM) [facility] [id number] 15:03:00 Test Item Value Reference Range Interpretation Comments UA Glucose (test code Negative (06/22/22 = UA Glucose) 10:03 AM) [facility] [id number] 15:03:00 Test Item Value Reference Range Interpretation Comments UA Ketones (test code Negative *NA*(06/22/22 = UA Ketones) 10:03 AM) [facility] [id number] 15:03:00 Test Item Value Reference Range Interpretation Comments UA Bili (test code = Negative *NA*(06/22/22 UA Bili) 10:03 AM) [facility] [id number] 15:03:00 Test Item Value Reference Range Interpretation Comments UA Blood (test code = Negative (06/22/22 10:03 UA Blood) AM) [facility] [id number] 15:03:00 Test Item Value Reference Range Interpretation Comments UA Urobilinogen (test code = UA 0.2 0.1-1.0 Urobilinogen) [facility] [id number] 15:03:00 Test Item Value Reference Range Interpretation Comments UA Nitrite (test code Negative (06/22/22 = UA Nitrite) 10:03 AM) [facility] [id number] 15:03:00 Test Item Value Reference Range Interpretation Comments UA Leuk Est (test Moderate *ABN*(06/22/22 code = UA Leuk Est) 10:03 AM) [facility] [id number] 15:03:00 Test Item Value Reference Range Interpretation Comments UA Sq Epi (test code = None Seen (06/22/22 UA Sq Epi) 10:03 AM) [facility] [id number] 15:03:00 Test Item Value Reference Range Interpretation Comments UA WBC (test code = UA WBC) 21-50 /HPF [facility] [id number] 15:03:00 Test Item Value Reference Range Interpretation Comments UA RBC (test None Seen See_Comment [Automated mes taj] code = UA RBC) (06/22/22 10:03 The system which AM) generated this result transmitted ref erence range: <=2. The reference range was not used to int erpret this result as normal/abnormal . [facility] [id number] 15:03:00 Test Item Value Reference Range Interpretation Comments UA Bacteria (test code = UA Many /HPF Bacteria) [facility] [id number] 15:03:00 Test Item Value Reference Range Interpretation Comments UA Mucus (test code = None Seen (06/22/22 UA Mucus) 10:03 AM) [facility]TOBRAMYCIN:SUSC:PT:ISOLATE:ORDQN:[id number] 15:03:00 Test Item Value Reference Range Interpretation Comments Culture: Urine (test >100,000 CFU/mL code = Culture: Escherichia coli Urine) [facility] OsheaTOBRAMYCIN:SUSC:PT:ISOLATE:ORDQN:[id number] 15:03:00 Test Item Value Reference Range Interpretation Comments Escherichia coli (test code Escherichia coli = Escherichia coli) [facility] [id number] 15:03:00 Test Item Value Reference Range Interpretation Comments UA Color (test code = Yellow *NA*(06/22/22 UA Color) 10:03 AM) [facility] [id number] 15:03:00 Test Item Value Reference Range Interpretation Comments UA Turbidity (test code Slight Cloudy = UA Turbidity) (06/22/22 10:03 AM) [facility] [id number] 15:03:00 Test Item Value Reference Range Interpretation Comments UA Spec Grav (test code = UA Spec 1.020 1 Grav) [facility] [id number] 15:03:00 Test Item Value Reference Range Interpretation Comments UA pH (test code = UA pH) 6.0 1 5.0-8.0 [facility] [id number] 15:03:00 Test Item Value Reference Range Interpretation Comments UA Protein (test code Negative (06/22/22 = UA Protein) 10:03 AM) [facility] [id number] 15:03:00 Test Item Value Reference Range Interpretation Comments UA Glucose (test code Negative (06/22/22 = UA Glucose) 10:03 AM) [facility] [id number] 15:03:00 Test Item Value Reference Range Interpretation Comments UA Ketones (test code Negative *NA*(06/22/22 = UA Ketones) 10:03 AM) [facility] [id number] 15:03:00 Test Item Value Reference Range Interpretation Comments UA Bili (test code = Negative *NA*(06/22/22 UA Bili) 10:03 AM) [facility] [id number] 15:03:00 Test Item Value Reference Range Interpretation Comments UA Blood (test code = Negative (06/22/22 10:03 UA Blood) AM) [facility] [id number] 15:03:00 Test Item Value Reference Range Interpretation Comments UA Urobilinogen (test code = UA 0.2 0.1-1.0 Urobilinogen) [facility] [id number] 15:03:00 Test Item Value Reference Range Interpretation Comments UA Nitrite (test code Negative (06/22/22 = UA Nitrite) 10:03 AM) [facility] [id number] 15:03:00 Test Item Value Reference Range Interpretation Comments UA Leuk Est (test Moderate *ABN*(06/22/22 code = UA Leuk Est) 10:03 AM) [facility] [id number] 15:03:00 Test Item Value Reference Range Interpretation Comments UA Sq Epi (test code = None Seen (06/22/22 UA Sq Epi) 10:03 AM) [facility] [id number] 15:03:00 Test Item Value Reference Range Interpretation Comments UA WBC (test code = UA WBC) 21-50 /HPF [facility] [id number] 15:03:00 Test Item Value Reference Range Interpretation Comments UA RBC (test None Seen See_Comment [Automated mes taj] code = UA RBC) (06/22/22 10:03 The system which AM) generated this result transmitted ref erence range: <=2. The reference range was not used to int erpret this result as normal/abnormal . [facility] [id number] 15:03:00 Test Item Value Reference Range Interpretation Comments UA Bacteria (test code = UA Many /HPF Bacteria) [facility] [id number] 15:03:00 Test Item Value Reference Range Interpretation Comments UA Mucus (test code = None Seen (06/22/22 UA Mucus) 10:03 AM) [facility]TOBRAMYCIN:SUSC:PT:ISOLATE:ORDQN:[id number] 15:03:00 Test Item Value Reference Range Interpretation Comments Culture: Urine (test >100,000 CFU/mL code = Culture: Escherichia coli Urine) [facility]TOBRAMYCIN:SUSC:PT:ISOLATE:ORDQN:[id number] 15:03:00 Test Item Value Reference Range Interpretation Comments Escherichia coli (test code Escherichia coli = Escherichia coli) [facility] [id number] 15:03:00 Test Item Value Reference Range Interpretation Comments UA Color (test code = Yellow *NA*(06/22/22 UA Color) 10:03 AM) [facility] [id number] 15:03:00 Test Item Value Reference Range Interpretation Comments UA Turbidity (test code Slight Cloudy = UA Turbidity) (06/22/22 10:03 AM) [facility] [id number] 15:03:00 Test Item Value Reference Range Interpretation Comments UA Spec Grav (test code = UA Spec 1.020 1 Grav) [facility] [id number] 15:03:00 Test Item Value Reference Range Interpretation Comments UA pH (test code = UA pH) 6.0 1 5.0-8.0 [facility] [id number] 15:03:00 Test Item Value Reference Range Interpretation Comments UA Protein (test code Negative (06/22/22 = UA Protein) 10:03 AM) [facility] [id number] 15:03:00 Test Item Value Reference Range Interpretation Comments UA Glucose (test code Negative (06/22/22 = UA Glucose) 10:03 AM) [facility] [id number] 15:03:00 Test Item Value Reference Range Interpretation Comments UA Ketones (test code Negative *NA*(06/22/22 = UA Ketones) 10:03 AM) [facility] [id number] 15:03:00 Test Item Value Reference Range Interpretation Comments UA Bili (test code = Negative *NA*(06/22/22 UA Bili) 10:03 AM) [facility] [id number] 15:03:00 Test Item Value Reference Range Interpretation Comments UA Blood (test code = Negative (06/22/22 10:03 UA Blood) AM) [facility] [id number] 15:03:00 Test Item Value Reference Range Interpretation Comments UA Urobilinogen (test code = UA 0.2 0.1-1.0 Urobilinogen) [facility] [id number] 15:03:00 Test Item Value Reference Range Interpretation Comments UA Nitrite (test code Negative (06/22/22 = UA Nitrite) 10:03 AM) [facility] [id number] 15:03:00 Test Item Value Reference Range Interpretation Comments UA Leuk Est (test Moderate *ABN*(06/22/22 code = UA Leuk Est) 10:03 AM) [facility] [id number] 15:03:00 Test Item Value Reference Range Interpretation Comments UA Sq Epi (test code = None Seen (06/22/22 UA Sq Epi) 10:03 AM) [facility] [id number] 15:03:00 Test Item Value Reference Range Interpretation Comments UA WBC (test code = UA WBC) 21-50 /HPF [facility] [id number] 15:03:00 Test Item Value Reference Range Interpretation Comments UA RBC (test None Seen See_Comment [Automated mes taj] code = UA RBC) (06/22/22 10:03 The system which AM) generated this result transmitted ref erence range: <=2. The reference range was not used to int erpret this result as normal/abnormal . [facility] [id number] 15:03:00 Test Item Value Reference Range Interpretation Comments UA Bacteria (test code = UA Many /HPF Bacteria) [facility] [id number] 15:03:00 Test Item Value Reference Range Interpretation Comments UA Mucus (test code = None Seen (06/22/22 UA Mucus) 10:03 AM) [facility]TOBRAMYCIN:SUSC:PT:ISOLATE:ORDQN:[id number] 15:03:00 Test Item Value Reference Range Interpretation Comments Culture: Urine (test >100,000 CFU/mL code = Culture: Escherichia coli Urine) [facility]TOBRAMYCIN:SUSC:PT:ISOLATE:ORDQN:[id number] 15:03:00 Test Item Value Reference Range Interpretation Comments Escherichia coli (test code Escherichia coli = Escherichia coli) [facility] [id number] 15:03:00 Test Item Value Reference Range Interpretation Comments UA Color (test code = Yellow *NA*(06/22/22 UA Color) 10:03 AM) [facility] [id number] 15:03:00 Test Item Value Reference Range Interpretation Comments UA Turbidity (test code Slight Cloudy = UA Turbidity) (06/22/22 10:03 AM) [facility] [id number] 15:03:00 Test Item Value Reference Range Interpretation Comments UA Spec Grav (test code = UA Spec 1.020 1 Grav) [facility] [id number] 15:03:00 Test Item Value Reference Range Interpretation Comments UA pH (test code = UA pH) 6.0 1 5.0-8.0 [facility] [id number] 15:03:00 Test Item Value Reference Range Interpretation Comments UA Protein (test code Negative (06/22/22 = UA Protein) 10:03 AM) [facility] [id number] 15:03:00 Test Item Value Reference Range Interpretation Comments UA Glucose (test code Negative (06/22/22 = UA Glucose) 10:03 AM) [facility] [id number] 15:03:00 Test Item Value Reference Range Interpretation Comments UA Ketones (test code Negative *NA*(06/22/22 = UA Ketones) 10:03 AM) [facility] [id number] 15:03:00 Test Item Value Reference Range Interpretation Comments UA Bili (test code = Negative *NA*(06/22/22 UA Bili) 10:03 AM) [facility] [id number] 15:03:00 Test Item Value Reference Range Interpretation Comments UA Blood (test code = Negative (06/22/22 10:03 UA Blood) AM) [facility] [id number] 15:03:00 Test Item Value Reference Range Interpretation Comments UA Urobilinogen (test code = UA 0.2 0.1-1.0 Urobilinogen) [facility] [id number] 15:03:00 Test Item Value Reference Range Interpretation Comments UA Nitrite (test code Negative (06/22/22 = UA Nitrite) 10:03 AM) [facility] [id number] 15:03:00 Test Item Value Reference Range Interpretation Comments UA Leuk Est (test Moderate *ABN*(06/22/22 code = UA Leuk Est) 10:03 AM) [facility] [id number] 15:03:00 Test Item Value Reference Range Interpretation Comments UA Sq Epi (test code = None Seen (06/22/22 UA Sq Epi) 10:03 AM) [facility] [id number] 15:03:00 Test Item Value Reference Range Interpretation Comments UA WBC (test code = UA WBC) 21-50 /HPF [facility] [id number] 15:03:00 Test Item Value Reference Range Interpretation Comments UA RBC (test None Seen See_Comment [Automated mes taj] code = UA RBC) (06/22/22 10:03 The system which AM) generated this result transmitted ref erence range: <=2. The reference range was not used to int erpret this result as normal/abnormal . [facility] [id number] 15:03:00 Test Item Value Reference Range Interpretation Comments UA Bacteria (test code = UA Many /HPF Bacteria) [facility] [id number] 15:03:00 Test Item Value Reference Range Interpretation Comments UA Mucus (test code = None Seen (06/22/22 UA Mucus) 10:03 AM) [facility]TOBRAMYCIN:SUSC:PT:ISOLATE:ORDQN:[id number] 15:03:00 Test Item Value Reference Range Interpretation Comments Culture: Urine (test >100,000 CFU/mL code = Culture: Escherichia coli Urine) [facility]TOBRAMYCIN:[facility]USC:PT:ISOLATE:ORDQN:[id number] 15:03:00 Test Item Value Reference Range Interpretation Comments Escherichia coli (test code Escherichia coli = Escherichia coli) [facility] [id number] 15:03:00 Test Item Value Reference Range Interpretation Comments UA Color (test code = Yellow *NA*(06/22/22 UA Color) 10:03 AM) [facility] [id number] 15:03:00 Test Item Value Reference Range Interpretation Comments UA Turbidity (test code Slight Cloudy = UA Turbidity) (06/22/22 10:03 AM) [facility] [id number] 15:03:00 Test Item Value Reference Range Interpretation Comments UA Spec Grav (test code = UA Spec 1.020 1 Grav) [facility] [id number] 15:03:00 Test Item Value Reference Range Interpretation Comments UA pH (test code = UA pH) 6.0 1 5.0-8.0 [facility] [id number] 15:03:00 Test Item Value Reference Range Interpretation Comments UA Protein (test code Negative (06/22/22 = UA Protein) 10:03 AM) [facility] [id number] 15:03:00 Test Item Value Reference Range Interpretation Comments UA Glucose (test code Negative (06/22/22 = UA Glucose) 10:03 AM) [facility] [id number] 15:03:00 Test Item Value Reference Range Interpretation Comments UA Ketones (test code Negative *NA*(06/22/22 = UA Ketones) 10:03 AM) [facility] [id number] 15:03:00 Test Item Value Reference Range Interpretation Comments UA Bili (test code = Negative *NA*(06/22/22 UA Bili) 10:03 AM) [facility] [id number] 15:03:00 Test Item Value Reference Range Interpretation Comments UA Blood (test code = Negative (06/22/22 10:03 UA Blood) AM) [facility] [id number] 15:03:00 Test Item Value Reference Range Interpretation Comments UA Urobilinogen (test code = UA 0.2 0.1-1.0 Urobilinogen) [facility] [id number] 15:03:00 Test Item Value Reference Range Interpretation Comments UA Nitrite (test code Negative (06/22/22 = UA Nitrite) 10:03 AM) [facility] [id number] 15:03:00 Test Item Value Reference Range Interpretation Comments UA Leuk Est (test Moderate *ABN*(06/22/22 code = UA Leuk Est) 10:03 AM) [facility] [id number] 15:03:00 Test Item Value Reference Range Interpretation Comments UA Sq Epi (test code = None Seen (06/22/22 UA Sq Epi) 10:03 AM) [facility] [id number] 15:03:00 Test Item Value Reference Range Interpretation Comments UA WBC (test code = UA WBC) 21-50 /HPF [facility] [id number] 15:03:00 Test Item Value Reference Range Interpretation Comments UA RBC (test None Seen See_Comment [Automated mes taj] code = UA RBC) (06/22/22 10:03 The system which AM) generated this result transmitted ref erence range: <=2. The reference range was not used to int erpret this result as normal/abnormal . [facility] [id number] 15:03:00 Test Item Value Reference Range Interpretation Comments UA Bacteria (test code = UA Many /HPF Bacteria) [facility] [id number] 15:03:00 Test Item Value Reference Range Interpretation Comments UA Mucus (test code = None Seen (06/22/22 UA Mucus) 10:03 AM) [facility]TOBRAMYCIN:SUSC:PT:ISOLATE:ORDQN:[id number] 15:03:00 Test Item Value Reference Range Interpretation Comments Culture: Urine (test >100,000 CFU/mL code = Culture: Escherichia coli Urine) [facility]TOBRAMYCIN:SUSC:PT:ISOLATE:ORDQN:[id number] 15:03:00 Test Item Value Reference Range Interpretation Comments Escherichia coli (test code Escherichia coli = Escherichia coli) [facility] [id number] 15:03:00 Test Item Value Reference Range Interpretation Comments UA Color (test code = Yellow *NA*(06/22/22 UA Color) 10:03 AM) [facility] [id number] 15:03:00 Test Item Value Reference Range Interpretation Comments UA Turbidity (test code Slight Cloudy = UA Turbidity) (06/22/22 10:03 AM) [facility] [id number] 15:03:00 Test Item Value Reference Range Interpretation Comments UA Spec Grav (test code = UA Spec 1.020 1 Grav) [facility] [id number] 15:03:00 Test Item Value Reference Range Interpretation Comments UA pH (test code = UA pH) 6.0 1 5.0-8.0 [facility] [id number] 15:03:00 Test Item Value Reference Range Interpretation Comments UA Protein (test code Negative (06/22/22 = UA Protein) 10:03 AM) [facility] [id number] 15:03:00 Test Item Value Reference Range Interpretation Comments UA Glucose (test code Negative (06/22/22 = UA Glucose) 10:03 AM) [facility] [id number] 15:03:00 Test Item Value Reference Range Interpretation Comments UA Ketones (test code Negative *NA*(06/22/22 = UA Ketones) 10:03 AM) [facility] [id number] 15:03:00 Test Item Value Reference Range Interpretation Comments UA Bili (test code = Negative *NA*(06/22/22 UA Bili) 10:03 AM) [facility] [id number] 15:03:00 Test Item Value Reference Range Interpretation Comments UA Blood (test code = Negative (06/22/22 10:03 UA Blood) AM) [facility] [id number] 15:03:00 Test Item Value Reference Range Interpretation Comments UA Urobilinogen (test code = UA 0.2 0.1-1.0 Urobilinogen) [facility] [id number] 15:03:00 Test Item Value Reference Range Interpretation Comments UA Nitrite (test code Negative (06/22/22 = UA Nitrite) 10:03 AM) [facility] [id number] 15:03:00 Test Item Value Reference Range Interpretation Comments UA Leuk Est (test Moderate *ABN*(06/22/22 code = UA Leuk Est) 10:03 AM) [facility] [id number] 15:03:00 Test Item Value Reference Range Interpretation Comments UA Sq Epi (test code = None Seen (06/22/22 UA Sq Epi) 10:03 AM) [facility] [id number] 15:03:00 Test Item Value Reference Range Interpretation Comments UA WBC (test code = UA WBC) 21-50 /HPF [facility] [id number] 15:03:00 Test Item Value Reference Range Interpretation Comments UA RBC (test None Seen See_Comment [Automated mes taj] code = UA RBC) (06/22/22 10:03 The system which AM) generated this result transmitted ref erence range: <=2. The reference range was not used to int erpret this result as normal/abnormal . [facility] [id number] 15:03:00 Test Item Value Reference Range Interpretation Comments UA Bacteria (test code = UA Many /HPF Bacteria) [facility] [id number] 15:03:00 Test Item Value Reference Range Interpretation Comments UA Mucus (test code = None Seen (06/22/22 UA Mucus) 10:03 AM) [facility]TOBRAMYCIN:SUSC:PT:ISOLATE:ORDQN:[id number] 15:03:00 Test Item Value Reference Range Interpretation Comments Culture: Urine (test >100,000 CFU/mL code = Culture: Escherichia coli Urine) [facility]TOBRAMYCIN:SUSC:PT:ISOLATE:ORDQN:[id number] 15:03:00 Test Item Value Reference Range Interpretation Comments Escherichia coli (test code Escherichia coli = Escherichia coli) [facility] [id number] 15:03:00 Test Item Value Reference Range Interpretation Comments UA Color (test code = Yellow *NA*(06/22/22 UA Color) 10:03 AM) [facility] [id number] 15:03:00 Test Item Value Reference Range Interpretation Comments UA Turbidity (test code Slight Cloudy = UA Turbidity) (06/22/22 10:03 AM) [facility] [id number] 15:03:00 Test Item Value Reference Range Interpretation Comments UA Spec Grav (test code = UA Spec 1.020 1 Grav) [facility] [id number] 15:03:00 Test Item Value Reference Range Interpretation Comments UA pH (test code = UA pH) 6.0 1 5.0-8.0 [facility] [id number] 15:03:00 Test Item Value Reference Range Interpretation Comments UA Protein (test code Negative (06/22/22 = UA Protein) 10:03 AM) [facility] [id number] 15:03:00 Test Item Value Reference Range Interpretation Comments UA Glucose (test code Negative (06/22/22 = UA Glucose) 10:03 AM) [facility] [id number] 15:03:00 Test Item Value Reference Range Interpretation Comments UA Ketones (test code Negative *NA*(06/22/22 = UA Ketones) 10:03 AM) [facility] [id number] 15:03:00 Test Item Value Reference Range Interpretation Comments UA Bili (test code = Negative *NA*(06/22/22 UA Bili) 10:03 AM) [facility] [id number] 15:03:00 Test Item Value Reference Range Interpretation Comments UA Blood (test code = Negative (06/22/22 10:03 UA Blood) AM) [facility] [id number] 15:03:00 Test Item Value Reference Range Interpretation Comments UA Urobilinogen (test code = UA 0.2 0.1-1.0 Urobilinogen) [facility] [id number] 15:03:00 Test Item Value Reference Range Interpretation Comments UA Nitrite (test code Negative (06/22/22 = UA Nitrite) 10:03 AM) [facility] [id number] 15:03:00 Test Item Value Reference Range Interpretation Comments UA Leuk Est (test Moderate *ABN*(06/22/22 code = UA Leuk Est) 10:03 AM) [facility] [id number] 15:03:00 Test Item Value Reference Range Interpretation Comments UA Sq Epi (test code = None Seen (06/22/22 UA Sq Epi) 10:03 AM) [facility] [id number] 15:03:00 Test Item Value Reference Range Interpretation Comments UA WBC (test code = UA WBC) 21-50 /HPF [facility] [id number] 15:03:00 Test Item Value Reference Range Interpretation Comments UA RBC (test None Seen See_Comment [Automated mes taj] code = UA RBC) (06/22/22 10:03 The system which AM) generated this result transmitted ref erence range: <=2. The reference range was not used to int erpret this result as normal/abnormal . [facility] [id number] 15:03:00 Test Item Value Reference Range Interpretation Comments UA Bacteria (test code = UA Many /HPF Bacteria) [facility] [id number] 15:03:00 Test Item Value Reference Range Interpretation Comments UA Mucus (test code = None Seen (06/22/22 UA Mucus) 10:03 AM) [facility]2022-10-20 02:44:00 Test Item Value Reference Range Interpretation Comments S. aureus (test code = Not Detected (06/21/22 S. aureus) 9:44 PM) [facility]2022-10-20 02:44:00 Test Item Value Reference Range Interpretation Comments S. epidermidis (test Detected code = S. epidermidis) *ABN*(06/21/22 9:44 PM) [facility]2022-10-20 02:44:00 Test Item Value Reference Range Interpretation Comments S. lugdunensis (test Not Detected code = S. lugdunensis) (06/21/22 9:44 PM) [facility]2022-10-20 02:44:00 Test Item Value Reference Range Interpretation Comments S. anginosus grp (test Not Detected (06/21/22 code = S. anginosus 9:44 PM) grp) [facility]2022-10-20 02:44:00 Test Item Value Reference Range Interpretation Comments S. agalactiae (test code Not Detected = S. agalactiae) (06/21/22 9:44 PM) [facility]2022-10-20 02:44:00 Test Item Value Reference Range Interpretation Comments S. pneumoniae (test code Not Detected = S. pneumoniae) (06/21/22 9:44 PM) [facility]2022-10-20 02:44:00 Test Item Value Reference Range Interpretation Comments S. pyogenes (test code Not Detected (06/21/22 = S. pyogenes) 9:44 PM) [facility]2022-10-20 02:44:00 Test Item Value Reference Range Interpretation Comments E. faecalis (test code Not Detected (06/21/22 = E. faecalis) 9:44 PM) [facility]2022-10-20 02:44:00 Test Item Value Reference Range Interpretation Comments E. faecium (test code Not Detected (06/21/22 = E. faecium) 9:44 PM) [facility]LE[facility]SA[facility] [id number] 02:44:00 Test Item Value Reference Range Interpretation Comments Staphylococcus spp. (test Detected code = Staphylococcus *ABN*(06/21/22 9:44 spp.) PM) [facility] [id number] 02:44:00 Test Item Value Reference Range Interpretation Comments Streptococcus spp. (test Not Detected code = Streptococcus (06/21/22 9:44 PM) spp.) [facility]annPRLE[facility] [id number] 02:44:00 Test Item Value Reference Range Interpretation Comments Listeria spp. (test Not Detected (06/21/22 code = Listeria spp.) 9:44 PM) [facility] [id number] 02:44:00 Test Item Value Reference Range Interpretation Comments mecA Methicillin Not Detected Resistance (test code = (06/21/22 9:44 PM) mecA Methicillin Resistance) [facility] [id number] 02:44:00 Test Item Value Reference Range Interpretation Comments Neela Vancomycin Not Detected Resistance (test code = (06/21/22 9:44 PM) Neela Vancomycin Resistance) [facility] [id number] 02:44:00 Test Item Value Reference Range Interpretation Comments vanB Vancomycin Not Detected Resistance (test code = (06/21/22 9:44 PM) vanB Vancomycin Resistance) [facility] CenterCulture: [id number] 02:44:00 Test Item Value Reference Range Interpretation Comments Culture: Blood Staphylococcus species, not (test code = aureus, not S. lugdunensis, Culture: Blood) DETECTED by [employer] nucleic acid test. . Aerobic Bottle: Staphylococcus epidermidis . Critical Results Called To: Rochelle@ [facility]6N At: 06/23/2022 08:15 Called By: MS Read Back Ok [facility]annSt[facility] [id number] 02:44:00 Test Item Value Reference Range Interpretation Comments Staphylococcus Staphylococcus epidermidis (test code epidermidis = Staphylococcus epidermidis) [facility]ann[facility] [id number] 02:44:00 Test Item Value Reference Range Interpretation Comments S. aureus (test code = Not Detected (06/21/22 S. aureus) 9:44 PM) [facility] [id number] 02:44:00 Test Item Value Reference Range Interpretation Comments S. epidermidis (test Detected code = S. epidermidis) *ABN*(06/21/22 9:44 PM) [facility]2022-10-20 02:44:00 Test Item Value Reference Range Interpretation Comments S. lugdunensis (test Not Detected code = S. lugdunensis) (06/21/22 9:44 PM) [facility]2022-10-20 02:44:00 Test Item Value Reference Range Interpretation Comments S. anginosus grp (test Not Detected (06/21/22 code = S. anginosus 9:44 PM) grp) [facility]2022-10-20 02:44:00 Test Item Value Reference Range Interpretation Comments S. agalactiae (test code Not Detected = S. agalactiae) (06/21/22 9:44 PM) [facility]2022-10-20 02:44:00 Test Item Value Reference Range Interpretation Comments S. pneumoniae (test code Not Detected = S. pneumoniae) (06/21/22 9:44 PM) [facility]2022-10-20 02:44:00 Test Item Value Reference Range Interpretation Comments S. pyogenes (test code Not Detected (06/21/22 = S. pyogenes) 9:44 PM) [facility]2022-10-20 02:44:00 Test Item Value Reference Range Interpretation Comments E. faecalis (test code Not Detected (06/21/22 = E. faecalis) 9:44 PM) [facility]2022-10-20 02:44:00 Test Item Value Reference Range Interpretation Comments E. faecium (test code Not Detected (06/21/22 = E. faecium) 9:44 PM) [facility]2022-10-20 02:44:00 Test Item Value Reference Range Interpretation Comments Staphylococcus spp. (test Detected code = Staphylococcus *ABN*(06/21/22 9:44 spp.) PM) [facility]2022-10-20 02:44:00 Test Item Value Reference Range Interpretation Comments Streptococcus spp. (test Not Detected code = Streptococcus (06/21/22 9:44 PM) spp.) [facility]2022-10-20 02:44:00 Test Item Value Reference Range Interpretation Comments Listeria spp. (test Not Detected (06/21/22 code = Listeria spp.) 9:44 PM) [facility]LE[facility] [id number] 02:44:00 Test Item Value Reference Range Interpretation Comments mecA Methicillin Not Detected Resistance (test code = (06/21/22 9:44 PM) mecA Methicillin Resistance) [facility] [id number] 02:44:00 Test Item Value Reference Range Interpretation Comments Neela Vancomycin Not Detected Resistance (test code = (06/21/22 9:44 PM) Neela Vancomycin Resistance) [facility] [id number] 02:44:00 Test Item Value Reference Range Interpretation Comments vanB Vancomycin Not Detected Resistance (test code = (06/21/22 9:44 PM) vanB Vancomycin Resistance) [facility] CenterCulture: [id number] 02:44:00 Test Item Value Reference Range Interpretation Comments Culture: Blood Staphylococcus species, not (test code = aureus, not S. lugdunensis, Culture: Blood) DETECTED by [employer] nucleic acid test. . Aerobic Bottle: Staphylococcus epidermidis . Critical Results Called To: Rochelle@ DN6N At: 06/23/2022 08:15 Called By: MS Read Back Ok [facility]annStaphylococcus [id number] 02:44:00 Test Item Value Reference Range Interpretation Comments Staphylococcus Staphylococcus epidermidis (test code epidermidis = Staphylococcus epidermidis) [facility] [id number] 02:44:00 Test Item Value Reference Range Interpretation Comments S. aureus (test code = Not Detected (06/21/22 S. aureus) 9:44 PM) [facility] [id number] 02:44:00 Test Item Value Reference Range Interpretation Comments S. epidermidis (test Detected code = S. epidermidis) *ABN*(06/21/22 9:44 PM) [facility] [id number] 02:44:00 Test Item Value Reference Range Interpretation Comments S. lugdunensis (test Not Detected code = S. lugdunensis) (06/21/22 9:44 PM) [facility]ann[facility]ULAR [id number] 02:44:00 Test Item Value Reference Range Interpretation Comments S. anginosus grp (test Not Detected (06/21/22 code = S. anginosus 9:44 PM) grp) [facility]2022-10-20 02:44:00 Test Item Value Reference Range Interpretation Comments S. agalactiae (test code Not Detected = S. agalactiae) (06/21/22 9:44 PM) [facility]2022-10-20 02:44:00 Test Item Value Reference Range Interpretation Comments S. pneumoniae (test code Not Detected = S. pneumoniae) (06/21/22 9:44 PM) [facility]2022-10-20 02:44:00 Test Item Value Reference Range Interpretation Comments S. pyogenes (test code Not Detected (06/21/22 = S. pyogenes) 9:44 PM) [facility]2022-10-20 02:44:00 Test Item Value Reference Range Interpretation Comments E. faecalis (test code Not Detected (06/21/22 = E. faecalis) 9:44 PM) [place] [id number] 02:44:00 Test Item Value Reference Range Interpretation Comments E. faecium (test code Not Detected (06/21/22 = E. faecium) 9:44 PM) [facility]2022-10-20 02:44:00 Test Item Value Reference Range Interpretation Comments Staphylococcus spp. (test Detected code = Staphylococcus *ABN*(06/21/22 9:44 spp.) PM) [facility]2022-10-20 02:44:00 Test Item Value Reference Range Interpretation Comments Streptococcus spp. (test Not Detected code = Streptococcus (06/21/22 9:44 PM) spp.) [facility]2022-10-20 02:44:00 Test Item Value Reference Range Interpretation Comments Listeria spp. (test Not Detected (06/21/22 code = Listeria spp.) 9:44 PM) [place] [id number] 02:44:00 Test Item Value Reference Range Interpretation Comments mecA Methicillin Not Detected Resistance (test code = (06/21/22 9:44 PM) mecA Methicillin Resistance) [place] [id number] 02:44:00 Test Item Value Reference Range Interpretation Comments Neela Vancomycin Not Detected Resistance (test code = (06/21/22 9:44 PM) Neela Vancomycin Resistance) [facility]annMOLE[facility]ULAR [id number] 02:44:00 Test Item Value Reference Range Interpretation Comments vanB Vancomycin Not Detected Resistance (test code = (06/21/22 9:44 PM) vanB Vancomycin Resistance) [facility] CenterCulture: [id number] 02:44:00 Test Item Value Reference Range Interpretation Comments Culture: Blood Staphylococcus species, not (test code = aureus, not S. lugdunensis, Culture: Blood) DETECTED by Bio[employer] Technologiesigene nucleic acid test. . Aerobic Bottle: Staphylococcus epidermidis . Critical Results Called To: Rochelle@ DNN At: 06/23/2022 08:15 Called By: MS Read Back Ok [facility]annStaphylococcus [id number] 02:44:00 Test Item Value Reference Range Interpretation Comments Staphylococcus Staphylococcus epidermidis (test code epidermidis = Staphylococcus epidermidis) [facility] [id number] 02:44:00 Test Item Value Reference Range Interpretation Comments S. aureus (test code = Not Detected (06/21/22 S. aureus) 9:44 PM) [facility]annMO[facility] [id number] 02:44:00 Test Item Value Reference Range Interpretation Comments S. epidermidis (test Detected code = S. epidermidis) *ABN*(06/21/22 9:44 PM) [facility]annPRLE[facility]ULAR [id number] 02:44:00 Test Item Value Reference Range Interpretation Comments S. lugdunensis (test Not Detected code = S. lugdunensis) (06/21/22 9:44 PM) [facility]annMO[facility] [id number] 02:44:00 Test Item Value Reference Range Interpretation Comments S. anginosus grp (test Not Detected (06/21/22 code = S. anginosus 9:44 PM) grp) [facility]annPRLECOHIO[facility] [id number] 02:44:00 Test Item Value Reference Range Interpretation Comments S. agalactiae (test code Not Detected = S. agalactiae) (06/21/22 9:44 PM) [place] [id number] 02:44:00 Test Item Value Reference Range Interpretation Comments S. pneumoniae (test code Not Detected = S. pneumoniae) (06/21/22 9:44 PM) [place] [id number] 02:44:00 Test Item Value Reference Range Interpretation Comments S. pyogenes (test code Not Detected (06/21/22 = S. pyogenes) 9:44 PM) [address]20 02:44:00 Test Item Value Reference Range Interpretation Comments E. faecalis (test code Not Detected (06/21/22 = E. faecalis) 9:44 PM) [place] [id number] 02:44:00 Test Item Value Reference Range Interpretation Comments E. faecium (test code Not Detected (06/21/22 = E. faecium) 9:44 PM) [address]20 02:44:00 Test Item Value Reference Range Interpretation Comments Staphylococcus spp. (test Detected code = Staphylococcus *ABN*(06/21/22 9:44 spp.) PM) [place] [id number] 02:44:00 Test Item Value Reference Range Interpretation Comments Streptococcus spp. (test Not Detected code = Streptococcus (06/21/22 9:44 PM) spp.) [place] [id number] 02:44:00 Test Item Value Reference Range Interpretation Comments Listeria spp. (test Not Detected (06/21/22 code = Listeria spp.) 9:44 PM) [place] [id number] 02:44:00 Test Item Value Reference Range Interpretation Comments mecA Methicillin Not Detected Resistance (test code = (06/21/22 9:44 PM) mecA Methicillin Resistance) [address]20 02:44:00 Test Item Value Reference Range Interpretation Comments Neela Vancomycin Not Detected Resistance (test code = (06/21/22 9:44 PM) Neela Vancomycin Resistance) [address]20 02:44:00 Test Item Value Reference Range Interpretation Comments vanB Vancomycin Not Detected Resistance (test code = (06/21/22 9:44 PM) vanB Vancomycin Resistance) [facility] [id number] 02:44:00 Test Item Value Reference Range Interpretation Comments Culture: Blood Staphylococcus species, not (test code = aureus, not S. lugdunensis, Culture: Blood) DETECTED by [employer] nucleic acid test. . Aerobic Bottle: Staphylococcus epidermidis . Critical Results Called To: Rochelle@ DN6N At: 06/23/2022 08:15 Called By: MS Read Back Ok [facility]annStaphylococcus [id number] 02:44:00 Test Item Value Reference Range Interpretation Comments Staphylococcus Staphylococcus epidermidis (test code epidermidis = Staphylococcus epidermidis) [facility]annMOLE[facility]ULAR [id number] 02:44:00 Test Item Value Reference Range Interpretation Comments S. aureus (test code = Not Detected (06/21/22 S. aureus) 9:44 PM) [facility] [id number] 02:44:00 Test Item Value Reference Range Interpretation Comments S. epidermidis (test Detected code = S. epidermidis) *ABN*(06/21/22 9:44 PM) [facility]annPRLE[facility]ULAR [id number] 02:44:00 Test Item Value Reference Range Interpretation Comments S. lugdunensis (test Not Detected code = S. lugdunensis) (06/21/22 9:44 PM) [facility]ann[facility]ULAR [id number] 02:44:00 Test Item Value Reference Range Interpretation Comments S. anginosus grp (test Not Detected (06/21/22 code = S. anginosus 9:44 PM) grp) [facility] [id number] 02:44:00 Test Item Value Reference Range Interpretation Comments S. agalactiae (test code Not Detected = S. agalactiae) (06/21/22 9:44 PM) [facility] [id number] 02:44:00 Test Item Value Reference Range Interpretation Comments S. pneumoniae (test code Not Detected = S. pneumoniae) (06/21/22 9:44 PM) [facility] [id number] 02:44:00 Test Item Value Reference Range Interpretation Comments S. pyogenes (test code Not Detected (06/21/22 = S. pyogenes) 9:44 PM) [place] [id number] 02:44:00 Test Item Value Reference Range Interpretation Comments E. faecalis (test code Not Detected (06/21/22 = E. faecalis) 9:44 PM) [address]10-20 02:44:00 Test Item Value Reference Range Interpretation Comments E. faecium (test code Not Detected (06/21/22 = E. faecium) 9:44 PM) [place] [id number] 02:44:00 Test Item Value Reference Range Interpretation Comments Staphylococcus spp. (test Detected code = Staphylococcus *ABN*(06/21/22 9:44 spp.) PM) [address]20 02:44:00 Test Item Value Reference Range Interpretation Comments Streptococcus spp. (test Not Detected code = Streptococcus (06/21/22 9:44 PM) spp.) [place] [id number] 02:44:00 Test Item Value Reference Range Interpretation Comments Listeria spp. (test Not Detected (06/21/22 code = Listeria spp.) 9:44 PM) [place] [id number] 02:44:00 Test Item Value Reference Range Interpretation Comments mecA Methicillin Not Detected Resistance (test code = (06/21/22 9:44 PM) mecA Methicillin Resistance) [address]20 02:44:00 Test Item Value Reference Range Interpretation Comments Neela Vancomycin Not Detected Resistance (test code = (06/21/22 9:44 PM) Neela Vancomycin Resistance) [place] [id number] 02:44:00 Test Item Value Reference Range Interpretation Comments vanB Vancomycin Not Detected Resistance (test code = (06/21/22 9:44 PM) vanB Vancomycin Resistance) [facility] CenterCulture: [id number] 02:44:00 Test Item Value Reference Range Interpretation Comments Culture: Blood Staphylococcus species, not (test code = aureus, not S. lugdunensis, Culture: Blood) DETECTED by [employer] nucleic acid test. . Aerobic Bottle: Staphylococcus epidermidis . Critical Results Called To: Rochelle@ DN6N At: 06/23/2022 08:15 Called By: MS Read Back Ok [facility] HermannStaphylococcus [id number] 02:44:00 Test Item Value Reference Range Interpretation Comments Staphylococcus Staphylococcus epidermidis (test code epidermidis = Staphylococcus epidermidis) [facility] [id number] 02:44:00 Test Item Value Reference Range Interpretation Comments S. aureus (test code = Not Detected (06/21/22 S. aureus) 9:44 PM) [facility] HermannMOLECULAR [id number] 02:44:00 Test Item Value Reference Range Interpretation Comments S. epidermidis (test Detected code = S. epidermidis) *ABN*(06/21/22 9:44 PM) [facility] [id number] 02:44:00 Test Item Value Reference Range Interpretation Comments S. lugdunensis (test Not Detected code = S. lugdunensis) (06/21/22 9:44 PM) [facility]ann[facility] [id number] 02:44:00 Test Item Value Reference Range Interpretation Comments S. anginosus grp (test Not Detected (06/21/22 code = S. anginosus 9:44 PM) grp) [facility]annMO[facility] [id number] 02:44:00 Test Item Value Reference Range Interpretation Comments S. agalactiae (test code Not Detected = S. agalactiae) (06/21/22 9:44 PM) [facility]annMOLE[facility]ULAR [id number] 02:44:00 Test Item Value Reference Range Interpretation Comments S. pneumoniae (test code Not Detected = S. pneumoniae) (06/21/22 9:44 PM) [facility] HermannMOLECULAR [id number] 02:44:00 Test Item Value Reference Range Interpretation Comments S. pyogenes (test code Not Detected (06/21/22 = S. pyogenes) 9:44 PM) [facility] [id number] 02:44:00 Test Item Value Reference Range Interpretation Comments E. faecalis (test code Not Detected (06/21/22 = E. faecalis) 9:44 PM) [facility] HermannMOLECULAR [id number] 02:44:00 Test Item Value Reference Range Interpretation Comments E. faecium (test code Not Detected (06/21/22 = E. faecium) 9:44 PM) [facility]LECOHIO[facility] [id number] 02:44:00 Test Item Value Reference Range Interpretation Comments Staphylococcus spp. (test Detected code = Staphylococcus *ABN*(06/21/22 9:44 spp.) PM) [facility] [id number] 02:44:00 Test Item Value Reference Range Interpretation Comments Streptococcus spp. (test Not Detected code = Streptococcus (06/21/22 9:44 PM) spp.) [facility]2022-10-20 02:44:00 Test Item Value Reference Range Interpretation Comments Listeria spp. (test Not Detected (06/21/22 code = Listeria spp.) 9:44 PM) [facility]2022-10-20 02:44:00 Test Item Value Reference Range Interpretation Comments mecA Methicillin Not Detected Resistance (test code = (06/21/22 9:44 PM) mecA Methicillin Resistance) [facility]2022-10-20 02:44:00 Test Item Value Reference Range Interpretation Comments Neela Vancomycin Not Detected Resistance (test code = (06/21/22 9:44 PM) Neela Vancomycin Resistance) [facility]2022-10-20 02:44:00 Test Item Value Reference Range Interpretation Comments vanB Vancomycin Not Detected Resistance (test code = (06/21/22 9:44 PM) vanB Vancomycin Resistance) [facility] CenterCulture: [id number] 02:44:00 Test Item Value Reference Range Interpretation Comments Culture: Blood Staphylococcus species, not (test code = aureus, not S. lugdunensis, Culture: Blood) DETECTED by [employer] nucleic acid test. . Aerobic Bottle: Staphylococcus epidermidis . Critical Results Called To: Rochelle@ DN6N At: 06/23/2022 08:15 Called By: MS Read Back Ok [facility]ann[facility] [id number] 02:44:00 Test Item Value Reference Range Interpretation Comments Staphylococcus Staphylococcus epidermidis (test code epidermidis = Staphylococcus epidermidis) [facility] [id number] 02:44:00 Test Item Value Reference Range Interpretation Comments S. aureus (test code = Not Detected (06/21/22 S. aureus) 9:44 PM) [place] [id number] 02:44:00 Test Item Value Reference Range Interpretation Comments S. epidermidis (test Detected code = S. epidermidis) *ABN*(06/21/22 9:44 PM) [facility]2022-10-20 02:44:00 Test Item Value Reference Range Interpretation Comments S. lugdunensis (test Not Detected code = S. lugdunensis) (06/21/22 9:44 PM) [facility]2022-10-20 02:44:00 Test Item Value Reference Range Interpretation Comments S. anginosus grp (test Not Detected (06/21/22 code = S. anginosus 9:44 PM) grp) [facility]2022-10-20 02:44:00 Test Item Value Reference Range Interpretation Comments S. agalactiae (test code Not Detected = S. agalactiae) (06/21/22 9:44 PM) [facility]2022-10-20 02:44:00 Test Item Value Reference Range Interpretation Comments S. pneumoniae (test code Not Detected = S. pneumoniae) (06/21/22 9:44 PM) [facility]2022-10-20 02:44:00 Test Item Value Reference Range Interpretation Comments S. pyogenes (test code Not Detected (06/21/22 = S. pyogenes) 9:44 PM) [facility]2022-10-20 02:44:00 Test Item Value Reference Range Interpretation Comments E. faecalis (test code Not Detected (06/21/22 = E. faecalis) 9:44 PM) [facility]2022-10-20 02:44:00 Test Item Value Reference Range Interpretation Comments E. faecium (test code Not Detected (06/21/22 = E. faecium) 9:44 PM) [facility]2022-10-20 02:44:00 Test Item Value Reference Range Interpretation Comments Staphylococcus spp. (test Detected code = Staphylococcus *ABN*(06/21/22 9:44 spp.) PM) [facility]2022-10-20 02:44:00 Test Item Value Reference Range Interpretation Comments Streptococcus spp. (test Not Detected code = Streptococcus (06/21/22 9:44 PM) spp.) [facility]annMOLE[facility]ULAR [id number] 02:44:00 Test Item Value Reference Range Interpretation Comments Listeria spp. (test Not Detected (06/21/22 code = Listeria spp.) 9:44 PM) [facility] [id number] 02:44:00 Test Item Value Reference Range Interpretation Comments mecA Methicillin Not Detected Resistance (test code = (06/21/22 9:44 PM) mecA Methicillin Resistance) [facility]annPRLECULAR [id number] 02:44:00 Test Item Value Reference Range Interpretation Comments Neela Vancomycin Not Detected Resistance (test code = (06/21/22 9:44 PM) Neela Vancomycin Resistance) [facility]annPRLECOH[facility] [id number] 02:44:00 Test Item Value Reference Range Interpretation Comments vanB Vancomycin Not Detected Resistance (test code = (06/21/22 9:44 PM) vanB Vancomycin Resistance) [facility] [id number] 02:44:00 Test Item Value Reference Range Interpretation Comments Culture: Blood Staphylococcus species, not (test code = aureus, not S. lugdunensis, Culture: Blood) DETECTED by Verigene nucleic acid test. . Aerobic Bottle: Staphylococcus epidermidis . Critical Results Called To: Rochelle@ DN6N At: 06/23/2022 08:15 Called By: MS Read Back Ok [facility]annStaphylococcus [id number] 02:44:00 Test Item Value Reference Range Interpretation Comments Staphylococcus Staphylococcus epidermidis (test code epidermidis = Staphylococcus epidermidis) [facility]annCulture: [id number] 02:22:00 Test Item Value Reference Range Interpretation Comments Culture: Blood (test code No Growth At 3 Days = Culture: Blood) [facility] HermannCulture: [id number] 02:22:00 Test Item Value Reference Range Interpretation Comments Culture: Blood (test code No Growth At 3 Days = Culture: Blood) [facility] HermannCulture: [id number] 02:22:00 Test Item Value Reference Range Interpretation Comments Culture: Blood (test code No Growth At 3 Days = Culture: Blood) [facility] HermannCulture: [id number] 02:22:00 Test Item Value Reference Range Interpretation Comments Culture: Blood (test code No Growth At 3 Days = Culture: Blood) [facility]: [id number] 02:22:00 Test Item Value Reference Range Interpretation Comments Culture: Blood (test code No Growth At 3 Days = Culture: Blood) [facility]: [id number] 02:22:00 Test Item Value Reference Range Interpretation Comments Culture: Blood (test code No Growth At 3 Days = Culture: Blood) [facility]: [id number] 02:22:00 Test Item Value Reference Range Interpretation Comments Culture: Blood (test code No Growth At 3 Days = Culture: Blood) [facility] [employer] [id number] 10:05:00 Test Item Value Reference Range Interpretation Comments ABO/Rh (test code = ABO/Rh) O POS [facility] [employer] [id number] 10:05:00 Test Item Value Reference Range Interpretation Comments Antibody Scrn (test Negative (06/21/22 code = Antibody Scrn) 5:05 AM) [facility] [employer] [id number] 10:05:00 Test Item Value Reference Range Interpretation Comments ABO/Rh (test code = ABO/Rh) O POS [facility] [employer] [id number] 10:05:00 Test Item Value Reference Range Interpretation Comments Antibody Scrn (test Negative (06/21/22 code = Antibody Scrn) 5:05 AM) [facility] [employer] [id number] 10:05:00 Test Item Value Reference Range Interpretation Comments ABO/Rh (test code = ABO/Rh) O POS [facility] [employer] [id number] 10:05:00 Test Item Value Reference Range Interpretation Comments Antibody Scrn (test Negative (06/21/22 code = Antibody Scrn) 5:05 AM) [facility] [employer] [id number] 10:05:00 Test Item Value Reference Range Interpretation Comments ABO/Rh (test code = ABO/Rh) O POS [facility] [employer] [id number] 10:05:00 Test Item Value Reference Range Interpretation Comments Antibody Scrn (test Negative (06/21/22 code = Antibody Scrn) 5:05 AM) [facility] [employer] [id number] 10:05:00 Test Item Value Reference Range Interpretation Comments ABO/Rh (test code = ABO/Rh) O POS [facility] [id number] 10:05:00 Test Item Value Reference Range Interpretation Comments Antibody Scrn (test Negative (06/21/22 code = Antibody Scrn) 5:05 AM) [facility] [id number] 10:05:00 Test Item Value Reference Range Interpretation Comments ABO/Rh (test code = ABO/Rh) O POS [facility] [id number] 10:05:00 Test Item Value Reference Range Interpretation Comments Antibody Scrn (test Negative (06/21/22 code = Antibody Scrn) 5:05 AM) [facility] [id number] 10:05:00 Test Item Value Reference Range Interpretation Comments ABO/Rh (test code = ABO/Rh) O POS [facility] [id number] 10:05:00 Test Item Value Reference Range Interpretation Comments Antibody Scrn (test Negative (06/21/22 code = Antibody Scrn) 5:05 AM) [facility] AND [id number] 05:51:00 Test Item Value Reference Range Interpretation Comments Occult Bld Stl (test Negative (06/21/22 code = Occult Bld Stl) 12:51 AM) [facility] AND [id number] 05:51:00 Test Item Value Reference Range Interpretation Comments Occult Bld Stl (test Negative (06/21/22 code = Occult Bld Stl) 12:51 AM) [facility] AND [id number] 05:51:00 Test Item Value Reference Range Interpretation Comments Occult Bld Stl (test Negative (06/21/22 code = Occult Bld Stl) 12:51 AM) [facility] AND [id number] 05:51:00 Test Item Value Reference Range Interpretation Comments Occult Bld Stl (test Negative (06/21/22 code = Occult Bld Stl) 12:51 AM) [facility] AND [id number] 05:51:00 Test Item Value Reference Range Interpretation Comments Occult Bld Stl (test Negative (06/21/22 code = Occult Bld Stl) 12:51 AM) [facility] [id number] 05:51:00 Test Item Value Reference Range Interpretation Comments Occult Bld Stl (test Negative (06/21/22 code = Occult Bld Stl) 12:51 AM) [facility] [id number] 05:51:00 Test Item Value Reference Range Interpretation Comments Occult Bld Stl (test Negative (06/21/22 code = Occult Bld Stl) 12:51 AM) [facility] [id number] 05:51:00 Test Item Value Reference Range Interpretation Comments Occult Bld Stl (test Negative (06/21/22 code = Occult Bld Stl) 12:51 AM) [facility] [id number] 05:51:00 Test Item Value Reference Range Interpretation Comments Occult Bld Stl (test Negative (06/21/22 code = Occult Bld Stl) 12:51 AM) [facility] [id number] 05:51:00 Test Item Value Reference Range Interpretation Comments Occult Bld Stl (test Negative (06/21/22 code = Occult Bld Stl) 12:51 AM) [facility] [id number] 05:51:00 Test Item Value Reference Range Interpretation Comments Occult Bld Stl (test Negative (06/21/22 code = Occult Bld Stl) 12:51 AM) [facility] [id number] 05:51:00 Test Item Value Reference Range Interpretation Comments Occult Bld Stl (test Negative (06/21/22 code = Occult Bld Stl) 12:51 AM) [facility] [id number] 05:51:00 Test Item Value Reference Range Interpretation Comments Occult Bld Stl (test Negative (06/21/22 code = Occult Bld Stl) 12:51 AM) [facility] [id number] 05:51:00 Test Item Value Reference Range Interpretation Comments Occult Bld Stl (test Negative (06/21/22 code = Occult Bld Stl) 12:51 AM) [facility]ann[facility]M [id number] 03:57:00 Test Item Value Reference Range Interpretation Comments Glucose Lvl (test code = Glucose Lvl) 182 70-99 [place] [address]-10-19 03:57:00 Test Item Value Reference Range Interpretation Comments BUN (test code = BUN) 16 7-[address]10-19 03:57:00 Test Item Value Reference Range Interpretation Comments Creatinine Lvl (test code = Creatinine 0.59 0.50-1.40 Lvl) [address]10-19 03:57:00 Test Item Value Reference Range Interpretation Comments Sodium Lvl (test code = Sodium Lvl) 136 135-145 [place] [address]-10-19 03:57:00 Test Item Value Reference Range Interpretation Comments Potassium Lvl (test code = Potassium 3.7 3.5-5.1 Lvl) [address]10-19 03:57:00 Test Item Value Reference Range Interpretation Comments Chloride Lvl (test code = Chloride Lvl) 96 95-[address]10-19 03:57:00 Test Item Value Reference Range Interpretation Comments CO2 (test code = CO2) 34 24-32 [place] [address]-10-19 03:57:00 Test Item Value Reference Range Interpretation Comments Calcium Lvl (test code = Calcium Lvl) 9.5 8.5-10.5 [place] [address]-10-19 03:57:00 Test Item Value Reference Range Interpretation Comments Total Protein (test code = Total 8.4 6.4-8.4 Protein) [place] [address]-19 03:57:00 Test Item Value Reference Range Interpretation Comments Albumin Lvl (test code = Albumin Lvl) 2.6 3.5-5.0 [place] [address]-10-19 03:57:00 Test Item Value Reference Range Interpretation Comments ALT (test code = ALT) 21 See_Comment [Auto mated message] The system which ge nerated this result transmit delaney reference range : <=65. The reference range was not used to interpr et this result as kiarra l/abnormal. [place] [address]-19 03:57:00 Test Item Value Reference Range Interpretation Comments AST (test code = AST) 13 See_Comment [Auto mated message] The system which ge nerated this result transmit delaney reference range : <=37. The reference range was not used to interpr et this result as kiarra l/abnormal. [facility]2022-10-19 03:57:00 Test Item Value Reference Range Interpretation Comments Alk Phos (test code = Alk Phos) 171 39-136 [facility]2022-10-19 03:57:00 Test Item Value Reference Range Interpretation Comments Bili Total (test code = Bili Total) 0.3 0.2-1.3 [facility]2022-10-19 03:57:00 Test Item Value Reference Range Interpretation Comments AGAP (test code = AGAP) 9.7 10.0-20.0 [facility]2022-10-19 03:57:00 Test Item Value Reference Range Interpretation Comments B/C Ratio (test code = B/C Ratio) 27 1 6-25 [facility]2022-10-19 03:57:00 Test Item Value Reference Range Interpretation Comments Globulin (test code = Globulin) 5.8 2.7-4.2 [facility]2022-10-19 03:57:00 Test Item Value Reference Range Interpretation Comments A/G Ratio (test code = A/G Ratio) 0.4 1 0.7-1.6 [place] 604762-10-19 03:57:00 Test Item Value Reference Range Interpretation Comments eGFR (test code = eGFR) 107 [facility]bdskkfLEVEGWCCF4011-77-34 03:57:00 Test Item Value Reference Range Interpretation Comments Glucose Lvl (test code = Glucose Lvl) 182 70-99 [facility] HospitalXbwsjkdIKDYZKURK0824-62-20 03:57:00 Test Item Value Reference Range Interpretation Comments BUN (test code = BUN) 16 7-22 [place] 286112-10-19 03:57:00 Test Item Value Reference Range Interpretation Comments Creatinine Lvl (test code = Creatinine 0.59 0.50-1.40 Lvl) [facility]XwxlsdxKFAVBYVYP8871-99-02 03:57:00 Test Item Value Reference Range Interpretation Comments Sodium Lvl (test code = Sodium Lvl) 136 135-145 [facility] HospitalKzoczhyDCREVDOSD8596-97-63 03:57:00 Test Item Value Reference Range Interpretation Comments Potassium Lvl (test code = Potassium 3.7 3.5-5.1 Lvl) [place] 286112-10-19 03:57:00 Test Item Value Reference Range Interpretation Comments Chloride Lvl (test code = Chloride Lvl) 96 95-109 [facility] CenterDfgrnobIWGQDQFRK6281-34-58 03:57:00 Test Item Value Reference Range Interpretation Comments CO2 (test code = CO2) 34 24-32 [facility] CenterIwcwlpyZVSQJMXCS8291-36-54 03:57:00 Test Item Value Reference Range Interpretation Comments Calcium Lvl (test code = Calcium Lvl) 9.5 8.5-10.5 [facility] CenterXjmqpncSZNBGAYSV0542-34-88 03:57:00 Test Item Value Reference Range Interpretation Comments Total Protein (test code = Total 8.4 6.4-8.4 Protein) [facility] CenterDhjugcwBRSWAOPVS9753-88-72 03:57:00 Test Item Value Reference Range Interpretation Comments Albumin Lvl (test code = Albumin Lvl) 2.6 3.5-5.0 [facility] CenterTwypgabKWTMVFVDA4148-90-26 03:57:00 Test Item Value Reference Range Interpretation Comments ALT (test code = ALT) 21 See_Comment [Auto mated message] The system which ge nerated this result transmit delaney reference range : <=65. The reference range was not used to interpr et this result as kiarra l/abnormal. [facility] CenterBctpmsqZQNJLAGGS8234-63-98 03:57:00 Test Item Value Reference Range Interpretation Comments AST (test code = AST) 13 See_Comment [Auto mated message] The system which ge nerated this result transmit delaney reference range : <=37. The reference range was not used to interpr et this result as kiarra l/abnormal. [facility] [id number] 03:57:00 Test Item Value Reference Range Interpretation Comments Alk Phos (test code = Alk Phos) 171 39-136 [facility] CenterZoiodszBBUJZOIGP9236-12-89 03:57:00 Test Item Value Reference Range Interpretation Comments Bili Total (test code = Bili Total) 0.3 0.2-1.3 [facility] CenterQxasetaUNNXLCNWV0041-40-48 03:57:00 Test Item Value Reference Range Interpretation Comments AGAP (test code = AGAP) 9.7 10.0-20.0 [facility] CenterMwuhnawNKCNMFFTM3924-81-76 03:57:00 Test Item Value Reference Range Interpretation Comments B/C Ratio (test code = B/C Ratio) 27 1 6-25 [place] [address]-10-19 03:57:00 Test Item Value Reference Range Interpretation Comments Globulin (test code = Globulin) 5.8 2.7-4.2 [place] [address]-10-19 03:57:00 Test Item Value Reference Range Interpretation Comments A/G Ratio (test code = A/G Ratio) 0.4 1 0.7-1.6 [place] [address]-10-19 03:57:00 Test Item Value Reference Range Interpretation Comments eGFR (test code = eGFR) 107 [place] [address]-10-19 03:57:00 Test Item Value Reference Range Interpretation Comments PT (test code = PT) 13.8 s 12.0-14.7 [place] [address]-10-19 03:57:00 Test Item Value Reference Range Interpretation Comments INR (test code = INR) 1.07 1 0.85-1.17 [place] [address]-10-19 03:57:00 Test Item Value Reference Range Interpretation Comments PTT (test code = PTT) 29.4 s 22.9-35.8 [place] [address]-10-19 03:57:00 Test Item Value Reference Range Interpretation Comments PT (test code = PT) 13.8 s 12.0-14.7 [place] [address]-10-19 03:57:00 Test Item Value Reference Range Interpretation Comments INR (test code = INR) 1.07 1 0.85-1.17 [place] [address]-10-19 03:57:00 Test Item Value Reference Range Interpretation Comments PTT (test code = PTT) 29.4 s 22.9-35.8 [place] 604762-10-19 03:57:00 Test Item Value Reference Range Interpretation Comments Glucose Lvl (test code = Glucose Lvl) 182 70-99 [place] 604762-10-19 03:57:00 Test Item Value Reference Range Interpretation Comments BUN (test code = BUN) 16 7-22 [place] 604762-10-19 03:57:00 Test Item Value Reference Range Interpretation Comments Creatinine Lvl (test code = Creatinine 0.59 0.50-1.40 Lvl) [place] 604762-10-19 03:57:00 Test Item Value Reference Range Interpretation Comments Sodium Lvl (test code = Sodium Lvl) 136 135-145 [facility] [id number] 03:57:00 Test Item Value Reference Range Interpretation Comments Potassium Lvl (test code = Potassium 3.7 3.5-5.1 Lvl) [place] 604762-10-19 03:57:00 Test Item Value Reference Range Interpretation Comments Chloride Lvl (test code = Chloride Lvl) 96 95-109 [facility] [id number] 03:57:00 Test Item Value Reference Range Interpretation Comments CO2 (test code = CO2) 34 24-32 [facility] [id number] 03:57:00 Test Item Value Reference Range Interpretation Comments Calcium Lvl (test code = Calcium Lvl) 9.5 8.5-10.5 [facility] [id number] 03:57:00 Test Item Value Reference Range Interpretation Comments Total Protein (test code = Total 8.4 6.4-8.4 Protein) [facility] [id number] 03:57:00 Test Item Value Reference Range Interpretation Comments Albumin Lvl (test code = Albumin Lvl) 2.6 3.5-5.0 [facility] CenterBob[facility] Corporation [id number] 03:57:00 Test Item Value Reference Range Interpretation Comments ALT (test code = ALT) 21 See_Comment [Auto mated message] The system which ge nerated this result transmit delaney reference range : <=65. The reference range was not used to interpr et this result as kiarra l/abnormal. [facility] [id number] 03:57:00 Test Item Value Reference Range Interpretation Comments AST (test code = AST) 13 See_Comment [Auto mated message] The system which ge nerated this result transmit delaney reference range : <=37. The reference range was not used to interpr et this result as kiarra l/abnormal. [facility] [id number] 03:57:00 Test Item Value Reference Range Interpretation Comments Alk Phos (test code = Alk Phos) 171 39-136 [facility] [id number] 03:57:00 Test Item Value Reference Range Interpretation Comments Bili Total (test code = Bili Total) 0.3 0.2-1.3 [place] 604762-10-19 03:57:00 Test Item Value Reference Range Interpretation Comments AGAP (test code = AGAP) 9.7 10.0-20.0 [place] 604762-10-19 03:57:00 Test Item Value Reference Range Interpretation Comments B/C Ratio (test code = B/C Ratio) 27 1 6-25 [place] 604762-10-19 03:57:00 Test Item Value Reference Range Interpretation Comments Globulin (test code = Globulin) 5.8 2.7-4.2 [place] 604762-10-19 03:57:00 Test Item Value Reference Range Interpretation Comments A/G Ratio (test code = A/G Ratio) 0.4 1 0.7-1.6 [place] 604762-10-19 03:57:00 Test Item Value Reference Range Interpretation Comments eGFR (test code = eGFR) 107 [place] 286112-10-19 03:57:00 Test Item Value Reference Range Interpretation Comments Glucose Lvl (test code = Glucose Lvl) 182 70-99 [place] [address]-10-19 03:57:00 Test Item Value Reference Range Interpretation Comments BUN (test code = BUN) 16 7-22 [facility] HospitalFhifeooHQZSHAUPR6946-33-67 03:57:00 Test Item Value Reference Range Interpretation Comments Creatinine Lvl (test code = Creatinine 0.59 0.50-1.40 Lvl) [facility] HospitalMankwcrVLGDVXFVS6220-61-69 03:57:00 Test Item Value Reference Range Interpretation Comments Sodium Lvl (test code = Sodium Lvl) 136 135-145 [facility] HospitalXohqddkPXESYGVNU3141-95-74 03:57:00 Test Item Value Reference Range Interpretation Comments Potassium Lvl (test code = Potassium 3.7 3.5-5.1 Lvl) [place] 286112-10-19 03:57:00 Test Item Value Reference Range Interpretation Comments Chloride Lvl (test code = Chloride Lvl) 96 95-109 [place] 286112-10-19 03:57:00 Test Item Value Reference Range Interpretation Comments CO2 (test code = CO2) 34 24-32 [place] 286112-10-19 03:57:00 Test Item Value Reference Range Interpretation Comments Calcium Lvl (test code = Calcium Lvl) 9.5 8.5-10.5 [facility] YgpkdwcFCGKGJLKM8364-09-76 03:57:00 Test Item Value Reference Range Interpretation Comments Total Protein (test code = Total 8.4 6.4-8.4 Protein) [facility] CenterPdyntkzCMRJNFNHD3767-97-68 03:57:00 Test Item Value Reference Range Interpretation Comments Albumin Lvl (test code = Albumin Lvl) 2.6 3.5-5.0 [facility] CenterGnxsjfmHJIDDBEYE9499-42-16 03:57:00 Test Item Value Reference Range Interpretation Comments ALT (test code = ALT) 21 See_Comment [Auto mated message] The system which ge nerated this result transmit delaney reference range : <=65. The reference range was not used to interpr et this result as kiarra l/abnormal. [facility] CenterPvsbdltJHJHWPGIA6644-50-25 03:57:00 Test Item Value Reference Range Interpretation Comments AST (test code = AST) 13 See_Comment [Auto mated message] The system which ge nerated this result transmit delaney reference range : <=37. The reference range was not used to interpr et this result as kiarra l/abnormal. [facility] SirilxgIOIBHEBXM2060-43-69 03:57:00 Test Item Value Reference Range Interpretation Comments Alk Phos (test code = Alk Phos) 171 39-136 [facility] CenterUmvqluwTCPXEAGBM4630-17-11 03:57:00 Test Item Value Reference Range Interpretation Comments Bili Total (test code = Bili Total) 0.3 0.2-1.3 [facility] CenterDrrnulyFXPVZEGUY2338-79-68 03:57:00 Test Item Value Reference Range Interpretation Comments AGAP (test code = AGAP) 9.7 10.0-20.0 [facility] CenterPgsxbznKIZWUJYYB0008-95-37 03:57:00 Test Item Value Reference Range Interpretation Comments B/C Ratio (test code = B/C Ratio) 27 1 6-25 [facility] CenterWubiritNYURQFCBN8183-71-41 03:57:00 Test Item Value Reference Range Interpretation Comments Globulin (test code = Globulin) 5.8 2.7-4.2 [facility] VzofsrfWETJNWDLD1567-48-86 03:57:00 Test Item Value Reference Range Interpretation Comments A/G Ratio (test code = A/G Ratio) 0.4 1 0.7-1.6 [place] [address]-10-19 03:57:00 Test Item Value Reference Range Interpretation Comments eGFR (test code = eGFR) 107 [place] [address]-10-19 03:57:00 Test Item Value Reference Range Interpretation Comments PT (test code = PT) 13.8 s 12.0-14.7 [place] [address]-10-19 03:57:00 Test Item Value Reference Range Interpretation Comments INR (test code = INR) 1.07 1 0.85-1.17 [place] [address]-10-19 03:57:00 Test Item Value Reference Range Interpretation Comments PTT (test code = PTT) 29.4 s 22.9-35.[address]10-19 03:57:00 Test Item Value Reference Range Interpretation Comments PT (test code = PT) 13.8 s 12.0-14.[address]10-19 03:57:00 Test Item Value Reference Range Interpretation Comments INR (test code = INR) 1.07 1 0.85-1.[address]10-19 03:57:00 Test Item Value Reference Range Interpretation Comments PTT (test code = PTT) 29.4 s 22.9-35.8 [place] [address]-10-19 03:57:00 Test Item Value Reference Range Interpretation Comments Glucose Lvl (test code = Glucose Lvl) 182 70-99 [place] [address]-10-19 03:57:00 Test Item Value Reference Range Interpretation Comments BUN (test code = BUN) 16 7-22 [place] [address]-10-19 03:57:00 Test Item Value Reference Range Interpretation Comments Creatinine Lvl (test code = Creatinine 0.59 0.50-1.40 Lvl) [place] 604762-10-19 03:57:00 Test Item Value Reference Range Interpretation Comments Sodium Lvl (test code = Sodium Lvl) 136 135-145 [place] 604762-10-19 03:57:00 Test Item Value Reference Range Interpretation Comments Potassium Lvl (test code = Potassium 3.7 3.5-5.1 Lvl) [place]762-10-19 03:57:00 Test Item Value Reference Range Interpretation Comments Chloride Lvl (test code = Chloride Lvl) 96 95-109 [facility] [address] [id number] 03:57:00 Test Item Value Reference Range Interpretation Comments CO2 (test code = CO2) 34 24-32 [facility] [id number] 03:57:00 Test Item Value Reference Range Interpretation Comments Calcium Lvl (test code = Calcium Lvl) 9.5 8.5-10.5 [facility] [address] [id number] 03:57:00 Test Item Value Reference Range Interpretation Comments Total Protein (test code = Total 8.4 6.4-8.4 Protein) [facility] [address] [id number] 03:57:00 Test Item Value Reference Range Interpretation Comments Albumin Lvl (test code = Albumin Lvl) 2.6 3.5-5.0 [facility] [address] [id number] 03:57:00 Test Item Value Reference Range Interpretation Comments ALT (test code = ALT) 21 See_Comment [Auto mated message] The system which ge nerated this result transmit delaney reference range : <=65. The reference range was not used to interpr et this result as kiarra l/abnormal. [facility] [address] [id number] 03:57:00 Test Item Value Reference Range Interpretation Comments AST (test code = AST) 13 See_Comment [Auto mated message] The system which ge nerated this result transmit delaney reference range : <=37. The reference range was not used to interpr et this result as kiarra l/abnormal. [facility] [address] [id number] 03:57:00 Test Item Value Reference Range Interpretation Comments Alk Phos (test code = Alk Phos) 171 39-136 [facility] [address] [id number] 03:57:00 Test Item Value Reference Range Interpretation Comments Bili Total (test code = Bili Total) 0.3 0.2-1.3 [facility] [address] [id number] 03:57:00 Test Item Value Reference Range Interpretation Comments AGAP (test code = AGAP) 9.7 10.0-20.0 [facility] [address] [id number] 03:57:00 Test Item Value Reference Range Interpretation Comments B/C Ratio (test code = B/C Ratio) 27 1 6-25 [place] [address]-10-19 03:57:00 Test Item Value Reference Range Interpretation Comments Globulin (test code = Globulin) 5.8 2.7-4.2 [place] 604762-10-19 03:57:00 Test Item Value Reference Range Interpretation Comments A/G Ratio (test code = A/G Ratio) 0.4 1 0.7-1.6 [place] [address]-10-19 03:57:00 Test Item Value Reference Range Interpretation Comments eGFR (test code = eGFR) 107 [place] [address]-10-19 03:57:00 Test Item Value Reference Range Interpretation Comments Glucose Lvl (test code = Glucose Lvl) 182 70-99 [place] 286112-10-19 03:57:00 Test Item Value Reference Range Interpretation Comments BUN (test code = BUN) 16 7-22 [place] 286112-10-19 03:57:00 Test Item Value Reference Range Interpretation Comments Creatinine Lvl (test code = Creatinine 0.59 0.50-1.40 Lvl) [facility] HospitalGxmboicONMFDKIJL1312-47-66 03:57:00 Test Item Value Reference Range Interpretation Comments Sodium Lvl (test code = Sodium Lvl) 136 135-145 [place] 286112-10-19 03:57:00 Test Item Value Reference Range Interpretation Comments Potassium Lvl (test code = Potassium 3.7 3.5-5.1 Lvl) [place] 286112-10-19 03:57:00 Test Item Value Reference Range Interpretation Comments Chloride Lvl (test code = Chloride Lvl) 96 95-109 [place] [address]-10-19 03:57:00 Test Item Value Reference Range Interpretation Comments CO2 (test code = CO2) 34 24-32 [place] [address]-10-19 03:57:00 Test Item Value Reference Range Interpretation Comments Calcium Lvl (test code = Calcium Lvl) 9.5 8.5-10.5 [place] 286112-10-19 03:57:00 Test Item Value Reference Range Interpretation Comments Total Protein (test code = Total 8.4 6.4-8.4 Protein) [facility] HospitalPfwgkwyRWHICJSKQ2521-72-78 03:57:00 Test Item Value Reference Range Interpretation Comments Albumin Lvl (test code = Albumin Lvl) 2.6 3.5-5.0 [facility] ZnmlgazLANZMBRVU6863-14-51 03:57:00 Test Item Value Reference Range Interpretation Comments ALT (test code = ALT) 21 See_Comment [Auto mated message] The system which ge nerated this result transmit delaney reference range : <=65. The reference range was not used to interpr et this result as kiarra l/abnormal. [facility] ChvdezhELSCCLGYA1529-09-18 03:57:00 Test Item Value Reference Range Interpretation Comments AST (test code = AST) 13 See_Comment [Auto mated message] The system which ge nerated this result transmit delaney reference range : <=37. The reference range was not used to interpr et this result as kiarra l/abnormal. [facility] KhtjgixYHBSNRTRZ7436-69-85 03:57:00 Test Item Value Reference Range Interpretation Comments Alk Phos (test code = Alk Phos) 171 39-136 [facility] NwymycwIVWOZDMIW3737-61-16 03:57:00 Test Item Value Reference Range Interpretation Comments Bili Total (test code = Bili Total) 0.3 0.2-1.3 [facility] FuumrnaIGIPHPEYV9335-66-22 03:57:00 Test Item Value Reference Range Interpretation Comments AGAP (test code = AGAP) 9.7 10.0-20.0 [facility] BfdfcrrOKTTEHSDS6144-85-67 03:57:00 Test Item Value Reference Range Interpretation Comments B/C Ratio (test code = B/C Ratio) 27 1 6-25 [facility] HepcnmsCGYIGPWXG1868-04-08 03:57:00 Test Item Value Reference Range Interpretation Comments Globulin (test code = Globulin) 5.8 2.7-4.2 [facility] QpfukwcUHRPXIMVA3180-70-15 03:57:00 Test Item Value Reference Range Interpretation Comments A/G Ratio (test code = A/G Ratio) 0.4 1 0.7-1.6 [facility] KvnzqusPDHGGJNQL1090-70-63 03:57:00 Test Item Value Reference Range Interpretation Comments eGFR (test code = eGFR) 107 [facility] BrlqiemBEVUBAMNNV9440-56-95 03:57:00 Test Item Value Reference Range Interpretation Comments PT (test code = PT) 13.8 s 12.0-14.7 [facility] WxmfrwnSCDTHSRRPI9986-16-20 03:57:00 Test Item Value Reference Range Interpretation Comments INR (test code = INR) 1.07 1 0.85-1.[address]10-19 03:57:00 Test Item Value Reference Range Interpretation Comments PTT (test code = PTT) 29.4 s 22.9-35.8 [place] [address]-10-19 03:57:00 Test Item Value Reference Range Interpretation Comments PT (test code = PT) 13.8 s 12.0-14.[address]10-19 03:57:00 Test Item Value Reference Range Interpretation Comments INR (test code = INR) 1.07 1 0.85-1.[address]10-19 03:57:00 Test Item Value Reference Range Interpretation Comments PTT (test code = PTT) 29.4 s 22.9-35.[address]10-19 03:57:00 Test Item Value Reference Range Interpretation Comments Glucose Lvl (test code = Glucose Lvl) 182 70-99 [place] [address]-10-19 03:57:00 Test Item Value Reference Range Interpretation Comments BUN (test code = BUN) 16 7-22 [place] [address]-10-19 03:57:00 Test Item Value Reference Range Interpretation Comments Creatinine Lvl (test code = Creatinine 0.59 0.50-1.40 Lvl) [place] [address]-10-19 03:57:00 Test Item Value Reference Range Interpretation Comments Sodium Lvl (test code = Sodium Lvl) 136 135-145 [place] [address]-10-19 03:57:00 Test Item Value Reference Range Interpretation Comments Potassium Lvl (test code = Potassium 3.7 3.5-5.1 Lvl) [place] [address]-10-19 03:57:00 Test Item Value Reference Range Interpretation Comments Chloride Lvl (test code = Chloride Lvl) 96 95-109 [place] 604762-10-19 03:57:00 Test Item Value Reference Range Interpretation Comments CO2 (test code = CO2) 34 24-32 [place] 604762-10-19 03:57:00 Test Item Value Reference Range Interpretation Comments Calcium Lvl (test code = Calcium Lvl) 9.5 8.5-10.5 [facility] [id number] 03:57:00 Test Item Value Reference Range Interpretation Comments Total Protein (test code = Total 8.4 6.4-8.4 Protein) [facility] [id number] 03:57:00 Test Item Value Reference Range Interpretation Comments Albumin Lvl (test code = Albumin Lvl) 2.6 3.5-5.0 [facility] [id number] 03:57:00 Test Item Value Reference Range Interpretation Comments ALT (test code = ALT) 21 See_Comment [Auto mated message] The system which ge nerated this result transmit delaney reference range : <=65. The reference range was not used to interpr et this result as kiarra l/abnormal. [facility] [address] [id number] 03:57:00 Test Item Value Reference Range Interpretation Comments AST (test code = AST) 13 See_Comment [Auto mated message] The system which ge nerated this result transmit delaney reference range : <=37. The reference range was not used to interpr et this result as kiarra l/abnormal. [facility] [address] [id number] 03:57:00 Test Item Value Reference Range Interpretation Comments Alk Phos (test code = Alk Phos) 171 39-136 [facility] [address] [id number] 03:57:00 Test Item Value Reference Range Interpretation Comments Bili Total (test code = Bili Total) 0.3 0.2-1.3 [facility] [address] [id number] 03:57:00 Test Item Value Reference Range Interpretation Comments AGAP (test code = AGAP) 9.7 10.0-20.0 [facility] [address] [id number] 03:57:00 Test Item Value Reference Range Interpretation Comments B/C Ratio (test code = B/C Ratio) 27 1 6-25 [facility] [address] [id number] 03:57:00 Test Item Value Reference Range Interpretation Comments Globulin (test code = Globulin) 5.8 2.7-4.2 [facility] [address] [id number] 03:57:00 Test Item Value Reference Range Interpretation Comments A/G Ratio (test code = A/G Ratio) 0.4 1 0.7-1.6 [facility]2022-10-19 03:57:00 Test Item Value Reference Range Interpretation Comments eGFR (test code = eGFR) 107 [place] [address]-10-19 03:57:00 Test Item Value Reference Range Interpretation Comments Glucose Lvl (test code = Glucose Lvl) 182 70-99 [place] [address]-10-19 03:57:00 Test Item Value Reference Range Interpretation Comments BUN (test code = BUN) 16 7-22 [place] [address]-10-19 03:57:00 Test Item Value Reference Range Interpretation Comments Creatinine Lvl (test code = Creatinine 0.59 0.50-1.40 Lvl) [place] 286112-10-19 03:57:00 Test Item Value Reference Range Interpretation Comments Sodium Lvl (test code = Sodium Lvl) 136 135-145 [place] 286112-10-19 03:57:00 Test Item Value Reference Range Interpretation Comments Potassium Lvl (test code = Potassium 3.7 3.5-5.1 Lvl) [facility] HospitalPaouyrfQUXESOFPO7156-91-07 03:57:00 Test Item Value Reference Range Interpretation Comments Chloride Lvl (test code = Chloride Lvl) 96 95-109 [place] [address]-10-19 03:57:00 Test Item Value Reference Range Interpretation Comments CO2 (test code = CO2) 34 24-32 [place] [address]-10-19 03:57:00 Test Item Value Reference Range Interpretation Comments Calcium Lvl (test code = Calcium Lvl) 9.5 8.5-10.5 [facility] HospitalHxobdqpJPEEDTIIT5449-82-35 03:57:00 Test Item Value Reference Range Interpretation Comments Total Protein (test code = Total 8.4 6.4-8.4 Protein) [place] [address]-10-19 03:57:00 Test Item Value Reference Range Interpretation Comments Albumin Lvl (test code = Albumin Lvl) 2.6 3.5-5.0 [facility] HospitalWlacfxxACROBVKGK8282-27-04 03:57:00 Test Item Value Reference Range Interpretation Comments ALT (test code = ALT) 21 See_Comment [Auto mated message] The system which ge nerated this result transmit delaney reference range : <=65. The reference range was not used to interpr et this result as kiarra l/abnormal. [facility] HospitalJuwpsviQFCEGVQFK2954-69-42 03:57:00 Test Item Value Reference Range Interpretation Comments AST (test code = AST) 13 See_Comment [Auto mated message] The system which ge nerated this result transmit delaney reference range : <=37. The reference range was not used to interpr et this result as kiarra l/abnormal. [facility] HospitalTdmbbhrUTZXXCWTV1098-92-80 03:57:00 Test Item Value Reference Range Interpretation Comments Alk Phos (test code = Alk Phos) 171 39-136 [facility] HospitalRfgombfBBXEORNHI1686-07-28 03:57:00 Test Item Value Reference Range Interpretation Comments Bili Total (test code = Bili Total) 0.3 0.2-1.3 [facility] HospitalKcueymhZQWKKMHUW1335-54-43 03:57:00 Test Item Value Reference Range Interpretation Comments AGAP (test code = AGAP) 9.7 10.0-20.0 [facility] HospitalGmmnadoDDFBNFETV6139-04-27 03:57:00 Test Item Value Reference Range Interpretation Comments B/C Ratio (test code = B/C Ratio) 27 1 6-25 [facility] CenterQcpzdprNUTRBFDQT3426-87-96 03:57:00 Test Item Value Reference Range Interpretation Comments Globulin (test code = Globulin) 5.8 2.7-4.2 [facility] HospitalZtnivipATFKIFDWT0568-18-67 03:57:00 Test Item Value Reference Range Interpretation Comments A/G Ratio (test code = A/G Ratio) 0.4 1 0.7-1.6 [facility] HospitalUzjjquaSSRTSCXEE8153-35-13 03:57:00 Test Item Value Reference Range Interpretation Comments eGFR (test code = eGFR) 107 [facility]UrbzrleKCFKJLVLDU9131-54-33 03:57:00 Test Item Value Reference Range Interpretation Comments PT (test code = PT) 13.8 s 12.0-14.7 [facility] CenterJzfesruKJQMNWEODO1029-44-31 03:57:00 Test Item Value Reference Range Interpretation Comments INR (test code = INR) 1.07 1 0.85-1.17 [facility] CenterLhuaplsVLEBJVIHUM9580-09-73 03:57:00 Test Item Value Reference Range Interpretation Comments PTT (test code = PTT) 29.4 s 22.9-35.8 [facility] CenterYmvfhzmICEPDOVKWT0060-24-58 03:57:00 Test Item Value Reference Range Interpretation Comments PT (test code = PT) 13.8 s 12.0-14.7 [place] [address]-10-19 03:57:00 Test Item Value Reference Range Interpretation Comments INR (test code = INR) 1.07 1 0.85-1.17 [place] [address]-10-19 03:57:00 Test Item Value Reference Range Interpretation Comments PTT (test code = PTT) 29.4 s 22.9-35.8 [place] [address]-10-19 03:57:00 Test Item Value Reference Range Interpretation Comments Glucose Lvl (test code = Glucose Lvl) 182 70-99 [place] 604762-10-19 03:57:00 Test Item Value Reference Range Interpretation Comments BUN (test code = BUN) 16 7-22 [place] [address]-10-19 03:57:00 Test Item Value Reference Range Interpretation Comments Creatinine Lvl (test code = Creatinine 0.59 0.50-1.40 Lvl) [place] 604762-10-19 03:57:00 Test Item Value Reference Range Interpretation Comments Sodium Lvl (test code = Sodium Lvl) 136 135-145 [place] 604762-10-19 03:57:00 Test Item Value Reference Range Interpretation Comments Potassium Lvl (test code = Potassium 3.7 3.5-5.1 Lvl) [place] 604762-10-19 03:57:00 Test Item Value Reference Range Interpretation Comments Chloride Lvl (test code = Chloride Lvl) 96 95-109 [place] 604762-10-19 03:57:00 Test Item Value Reference Range Interpretation Comments CO2 (test code = CO2) 34 24-32 [place] 604762-10-19 03:57:00 Test Item Value Reference Range Interpretation Comments Calcium Lvl (test code = Calcium Lvl) 9.5 8.5-10.5 [place] 604762-10-19 03:57:00 Test Item Value Reference Range Interpretation Comments Total Protein (test code = Total 8.4 6.4-8.4 Protein) [place] 604762-10-19 03:57:00 Test Item Value Reference Range Interpretation Comments Albumin Lvl (test code = Albumin Lvl) 2.6 3.5-5.0 [facility] [address] [id number] 03:57:00 Test Item Value Reference Range Interpretation Comments ALT (test code = ALT) 21 See_Comment [Auto mated message] The system which ge nerated this result transmit delaney reference range : <=65. The reference range was not used to interpr et this result as kiarra l/abnormal. [facility] [address] [id number] 03:57:00 Test Item Value Reference Range Interpretation Comments AST (test code = AST) 13 See_Comment [Auto mated message] The system which ge nerated this result transmit delaney reference range : <=37. The reference range was not used to interpr et this result as kiarra l/abnormal. [facility] [address] [id number] 03:57:00 Test Item Value Reference Range Interpretation Comments Alk Phos (test code = Alk Phos) 171 39-136 [facility] [address] [id number] 03:57:00 Test Item Value Reference Range Interpretation Comments Bili Total (test code = Bili Total) 0.3 0.2-1.3 [facility] [address] PMQMD9647-01-32 03:57:00 Test Item Value Reference Range Interpretation Comments AGAP (test code = AGAP) 9.7 10.0-20.0 [facility] [address] TIPXJ7626-91-01 03:57:00 Test Item Value Reference Range Interpretation Comments B/C Ratio (test code = B/C Ratio) 27 1 6-25 [facility] [address] [id number] 03:57:00 Test Item Value Reference Range Interpretation Comments Globulin (test code = Globulin) 5.8 2.7-4.2 [facility] [address] [id number] 03:57:00 Test Item Value Reference Range Interpretation Comments A/G Ratio (test code = A/G Ratio) 0.4 1 0.7-1.6 [facility] [address] [id number] 03:57:00 Test Item Value Reference Range Interpretation Comments eGFR (test code = eGFR) 107 [facility] TcxkzsiIROBAYXXY1206-84-69 03:57:00 Test Item Value Reference Range Interpretation Comments Glucose Lvl (test code = Glucose Lvl) 182 70-99 [facility] OrrglrgOJHICSBKV2061-07-98 03:57:00 Test Item Value Reference Range Interpretation Comments BUN (test code = BUN) 16 7-22 [place] [address]-10-19 03:57:00 Test Item Value Reference Range Interpretation Comments Creatinine Lvl (test code = Creatinine 0.59 0.50-1.40 Lvl) [place] [address]-10-19 03:57:00 Test Item Value Reference Range Interpretation Comments Sodium Lvl (test code = Sodium Lvl) 136 135-145 [place] 286112-10-19 03:57:00 Test Item Value Reference Range Interpretation Comments Potassium Lvl (test code = Potassium 3.7 3.5-5.1 Lvl) [place] [address]-10-19 03:57:00 Test Item Value Reference Range Interpretation Comments Chloride Lvl (test code = Chloride Lvl) 96 95-109 [place] 286112-10-19 03:57:00 Test Item Value Reference Range Interpretation Comments CO2 (test code = CO2) 34 24-32 [place] 286112-10-19 03:57:00 Test Item Value Reference Range Interpretation Comments Calcium Lvl (test code = Calcium Lvl) 9.5 8.5-10.5 [facility] HospitalJqrpimlZANYTGSGY3088-44-00 03:57:00 Test Item Value Reference Range Interpretation Comments Total Protein (test code = Total 8.4 6.4-8.4 Protein) [facility] HospitalLfixxsvNBYHHHISI4357-59-97 03:57:00 Test Item Value Reference Range Interpretation Comments Albumin Lvl (test code = Albumin Lvl) 2.6 3.5-5.0 [place] [address]-10-19 03:57:00 Test Item Value Reference Range Interpretation Comments ALT (test code = ALT) 21 See_Comment [Auto mated message] The system which ge nerated this result transmit delaney reference range : <=65. The reference range was not used to interpr et this result as kiarra l/abnormal. [place] [address]-10-19 03:57:00 Test Item Value Reference Range Interpretation Comments AST (test code = AST) 13 See_Comment [Auto mated message] The system which ge nerated this result transmit delaney reference range : <=37. The reference range was not used to interpr et this result as kiarra l/abnormal. [place] [address]-10-19 03:57:00 Test Item Value Reference Range Interpretation Comments Alk Phos (test code = Alk Phos) 171 39-136 [facility] HospitalRbvrdrmILEFJOTUG7966-28-36 03:57:00 Test Item Value Reference Range Interpretation Comments Bili Total (test code = Bili Total) 0.3 0.2-1.3 [facility] HospitalBkuhneiKDSLMKQJZ1184-65-55 03:57:00 Test Item Value Reference Range Interpretation Comments AGAP (test code = AGAP) 9.7 10.0-20.0 [facility] HospitalJelklskPIAPDLUZX9356-70-10 03:57:00 Test Item Value Reference Range Interpretation Comments B/C Ratio (test code = B/C Ratio) 27 1 6-25 [facility] HospitalXcnxctzAONXAUALX0447-11-13 03:57:00 Test Item Value Reference Range Interpretation Comments Globulin (test code = Globulin) 5.8 2.7-4.2 [facility] HospitalInyhxooPZQCHNDAA4694-94-27 03:57:00 Test Item Value Reference Range Interpretation Comments A/G Ratio (test code = A/G Ratio) 0.4 1 0.7-1.6 [place] [address]-10-19 03:57:00 Test Item Value Reference Range Interpretation Comments eGFR (test code = eGFR) 107 [facility]WiynoyaYGMVFEYRHN0372-19-74 03:57:00 Test Item Value Reference Range Interpretation Comments PT (test code = PT) 13.8 s 12.0-14.7 [facility]SdltowkNKLSXJLPNM8459-79-17 03:57:00 Test Item Value Reference Range Interpretation Comments INR (test code = INR) 1.07 1 0.85-1.17 [facility]XgglxsiGRVRZSFFOK0841-32-53 03:57:00 Test Item Value Reference Range Interpretation Comments PTT (test code = PTT) 29.4 s 22.9-35.8 [place] [address]-10-19 03:57:00 Test Item Value Reference Range Interpretation Comments PT (test code = PT) 13.8 s 12.0-14.7 [place] [address]-10-19 03:57:00 Test Item Value Reference Range Interpretation Comments INR (test code = INR) 1.07 1 0.85-1.17 [place] 587612-10-19 03:57:00 Test Item Value Reference Range Interpretation Comments PTT (test code = PTT) 29.4 s 22.9-35.8 [place] 604762-10-19 03:57:00 Test Item Value Reference Range Interpretation Comments Glucose Lvl (test code = Glucose Lvl) 182 70-99 [place] 604762-10-19 03:57:00 Test Item Value Reference Range Interpretation Comments BUN (test code = BUN) 16 7-22 [place] 604762-10-19 03:57:00 Test Item Value Reference Range Interpretation Comments Creatinine Lvl (test code = Creatinine 0.59 0.50-1.40 Lvl) [place] 604762-10-19 03:57:00 Test Item Value Reference Range Interpretation Comments Sodium Lvl (test code = Sodium Lvl) 136 135-145 [facility]2022-10-19 03:57:00 Test Item Value Reference Range Interpretation Comments Potassium Lvl (test code = Potassium 3.7 3.5-5.1 Lvl) [place] 604762-10-19 03:57:00 Test Item Value Reference Range Interpretation Comments Chloride Lvl (test code = Chloride Lvl) 96 95-109 [place] 604762-10-19 03:57:00 Test Item Value Reference Range Interpretation Comments CO2 (test code = CO2) 34 24-32 [place] 604762-10-19 03:57:00 Test Item Value Reference Range Interpretation Comments Calcium Lvl (test code = Calcium Lvl) 9.5 8.5-10.5 [facility]2022-10-19 03:57:00 Test Item Value Reference Range Interpretation Comments Total Protein (test code = Total 8.4 6.4-8.4 Protein) [place] 604762-10-19 03:57:00 Test Item Value Reference Range Interpretation Comments Albumin Lvl (test code = Albumin Lvl) 2.6 3.5-5.0 [place] 604762-10-19 03:57:00 Test Item Value Reference Range Interpretation Comments ALT (test code = ALT) 21 See_Comment [Auto mated message] The system which ge nerated this result transmit delaney reference range : <=65. The reference range was not used to interpr et this result as kiarra l/abnormal. [place] [address]-10-19 03:57:00 Test Item Value Reference Range Interpretation Comments AST (test code = AST) 13 See_Comment [Auto mated message] The system which ge nerated this result transmit delaney reference range : <=37. The reference range was not used to interpr et this result as kiarra l/abnormal. [facility]2022-10-19 03:57:00 Test Item Value Reference Range Interpretation Comments Alk Phos (test code = Alk Phos) 171 39-136 [facility] INSQN4687-49-05 03:57:00 Test Item Value Reference Range Interpretation Comments Bili Total (test code = Bili Total) 0.3 0.2-1.3 [facility]2022-10-19 03:57:00 Test Item Value Reference Range Interpretation Comments AGAP (test code = AGAP) 9.7 10.0-20.0 [facility]2022-10-19 03:57:00 Test Item Value Reference Range Interpretation Comments B/C Ratio (test code = B/C Ratio) 27 1 6-25 [facility]2022-10-19 03:57:00 Test Item Value Reference Range Interpretation Comments Globulin (test code = Globulin) 5.8 2.7-4.2 [facility]2022-10-19 03:57:00 Test Item Value Reference Range Interpretation Comments A/G Ratio (test code = A/G Ratio) 0.4 1 0.7-1.6 [facility]2022-10-19 03:57:00 Test Item Value Reference Range Interpretation Comments eGFR (test code = eGFR) 107 [facility]OzyckvoSYTJGNOSD6850-56-43 03:57:00 Test Item Value Reference Range Interpretation Comments Glucose Lvl (test code = Glucose Lvl) 182 70-99 [facility] HospitalDtnpvmpLVITWYWIQ1884-01-98 03:57:00 Test Item Value Reference Range Interpretation Comments BUN (test code = BUN) 16 7-22 [facility] HospitalQeirfeuSMKIVAOAU8623-98-83 03:57:00 Test Item Value Reference Range Interpretation Comments Creatinine Lvl (test code = Creatinine 0.59 0.50-1.40 Lvl) [facility] HospitalYkftabvKOHGWCYJR5522-99-31 03:57:00 Test Item Value Reference Range Interpretation Comments Sodium Lvl (test code = Sodium Lvl) 136 135-145 [facility]XnjyfuzPOJQBOAXE2881-71-38 03:57:00 Test Item Value Reference Range Interpretation Comments Potassium Lvl (test code = Potassium 3.7 3.5-5.1 Lvl) [facility] CenterCzgsamrNHDPKMWNN0705-90-32 03:57:00 Test Item Value Reference Range Interpretation Comments Chloride Lvl (test code = Chloride Lvl) 96 95-109 [facility] CenterCmvgdvmIXJWAQPEZ5064-74-14 03:57:00 Test Item Value Reference Range Interpretation Comments CO2 (test code = CO2) 34 24-32 [facility] CenterCbvvxmfUHLGAJELK3017-04-83 03:57:00 Test Item Value Reference Range Interpretation Comments Calcium Lvl (test code = Calcium Lvl) 9.5 8.5-10.5 [facility] CenterUvaocqmVFGUDCVML7070-09-07 03:57:00 Test Item Value Reference Range Interpretation Comments Total Protein (test code = Total 8.4 6.4-8.4 Protein) [facility]XhgwqpmVIGLSIDLM9487-80-91 03:57:00 Test Item Value Reference Range Interpretation Comments Albumin Lvl (test code = Albumin Lvl) 2.6 3.5-5.0 [facility] CenterKnfhotyVATPLWTBU3963-99-55 03:57:00 Test Item Value Reference Range Interpretation Comments ALT (test code = ALT) 21 See_Comment [Auto mated message] The system which Moonbasa nerated this result transmit delaney reference range : <=65. The reference range was not used to interpr et this result as kiarra l/abnormal. [facility] CenterLbiagnyBATIVVUAP2041-32-74 03:57:00 Test Item Value Reference Range Interpretation Comments AST (test code = AST) 13 See_Comment [Auto mated message] The system which ge nerated this result transmit delaney reference range : <=37. The reference range was not used to interpr et this result as kiarra l/abnormal. [facility] CenterYkwpgoeSQVACHQHT8888-60-26 03:57:00 Test Item Value Reference Range Interpretation Comments Alk Phos (test code = Alk Phos) 171 39-136 [facility] CenterMxhhglkZIKDBKGBY0520-54-66 03:57:00 Test Item Value Reference Range Interpretation Comments Bili Total (test code = Bili Total) 0.3 0.2-1.3 [facility] CenterPbvnvdhRGDKAUNHT5634-02-98 03:57:00 Test Item Value Reference Range Interpretation Comments AGAP (test code = AGAP) 9.7 10.0-20.0 [place] [address]-10-19 03:57:00 Test Item Value Reference Range Interpretation Comments B/C Ratio (test code = B/C Ratio) 27 1 6-25 [place] [address]-10-19 03:57:00 Test Item Value Reference Range Interpretation Comments Globulin (test code = Globulin) 5.8 2.7-4.2 [place] [address]-10-19 03:57:00 Test Item Value Reference Range Interpretation Comments A/G Ratio (test code = A/G Ratio) 0.4 1 0.7-1.6 [place] [address]-10-19 03:57:00 Test Item Value Reference Range Interpretation Comments eGFR (test code = eGFR) 107 [facility] HospitalKkbdljsYDHEONGEYB0334-70-64 03:57:00 Test Item Value Reference Range Interpretation Comments PT (test code = PT) 13.8 s 12.0-14.7 [facility] HospitalFfqeglaALXBMQQUEZ1650-78-67 03:57:00 Test Item Value Reference Range Interpretation Comments INR (test code = INR) 1.07 1 0.85-1.17 [facility] HospitalSksmgqaTWGRGDDNYC8259-91-94 03:57:00 Test Item Value Reference Range Interpretation Comments PTT (test code = PTT) 29.4 s 22.9-35.8 [facility] HospitalZqxxpgbGJKEBRBAHW1027-03-44 03:57:00 Test Item Value Reference Range Interpretation Comments PT (test code = PT) 13.8 s 12.0-14.7 [place] [address]-10-19 03:57:00 Test Item Value Reference Range Interpretation Comments INR (test code = INR) 1.07 1 0.85-1.17 [place] [address]-10-19 03:57:00 Test Item Value Reference Range Interpretation Comments PTT (test code = PTT) 29.4 s 22.9-35.8 [facility]2022-10-19 03:57:00 Test Item Value Reference Range Interpretation Comments Glucose Lvl (test code = Glucose Lvl) 182 70-99 [facility]2022-10-19 03:57:00 Test Item Value Reference Range Interpretation Comments BUN (test code = BUN) 16 7-22 [place] 604762-10-19 03:57:00 Test Item Value Reference Range Interpretation Comments Creatinine Lvl (test code = Creatinine 0.59 0.50-1.40 Lvl) [place] 604762-10-19 03:57:00 Test Item Value Reference Range Interpretation Comments Sodium Lvl (test code = Sodium Lvl) 136 135-145 [place] 604762-10-19 03:57:00 Test Item Value Reference Range Interpretation Comments Potassium Lvl (test code = Potassium 3.7 3.5-5.1 Lvl) [place] [address]-10-19 03:57:00 Test Item Value Reference Range Interpretation Comments Chloride Lvl (test code = Chloride Lvl) 96 95-109 [place] 604762-10-19 03:57:00 Test Item Value Reference Range Interpretation Comments CO2 (test code = CO2) 34 24-32 [place] 604762-10-19 03:57:00 Test Item Value Reference Range Interpretation Comments Calcium Lvl (test code = Calcium Lvl) 9.5 8.5-10.5 [place] 604762-10-19 03:57:00 Test Item Value Reference Range Interpretation Comments Total Protein (test code = Total 8.4 6.4-8.4 Protein) [place] 604762-10-19 03:57:00 Test Item Value Reference Range Interpretation Comments Albumin Lvl (test code = Albumin Lvl) 2.6 3.5-5.0 [place] 604762-10-19 03:57:00 Test Item Value Reference Range Interpretation Comments ALT (test code = ALT) 21 See_Comment [Auto mated message] The system which ge nerated this result transmit delaney reference range : <=65. The reference range was not used to interpr et this result as kiarra l/abnormal. [facility] YDIMW3610-93-49 03:57:00 Test Item Value Reference Range Interpretation Comments AST (test code = AST) 13 See_Comment [Auto mated message] The system which ge nerated this result transmit delaney reference range : <=37. The reference range was not used to interpr et this result as kiarra l/abnormal. [facility] ODGHU2669-27-30 03:57:00 Test Item Value Reference Range Interpretation Comments Alk Phos (test code = Alk Phos) 171 39-136 [facility]2022-10-19 03:57:00 Test Item Value Reference Range Interpretation Comments Bili Total (test code = Bili Total) 0.3 0.2-1.3 [place] 604762-10-19 03:57:00 Test Item Value Reference Range Interpretation Comments AGAP (test code = AGAP) 9.7 10.0-20.0 [facility]2022-10-19 03:57:00 Test Item Value Reference Range Interpretation Comments B/C Ratio (test code = B/C Ratio) 27 1 6-25 [place] 604762-10-19 03:57:00 Test Item Value Reference Range Interpretation Comments Globulin (test code = Globulin) 5.8 2.7-4.2 [facility]2022-10-19 03:57:00 Test Item Value Reference Range Interpretation Comments A/G Ratio (test code = A/G Ratio) 0.4 1 0.7-1.6 [facility]2022-10-19 03:57:00 Test Item Value Reference Range Interpretation Comments eGFR (test code = eGFR) 107 [facility] HospitalMlgiklmSQIEHQPKE2807-93-39 03:57:00 Test Item Value Reference Range Interpretation Comments Glucose Lvl (test code = Glucose Lvl) 182 70-99 [place] 286112-10-19 03:57:00 Test Item Value Reference Range Interpretation Comments BUN (test code = BUN) 16 7-22 [place] 286112-10-19 03:57:00 Test Item Value Reference Range Interpretation Comments Creatinine Lvl (test code = Creatinine 0.59 0.50-1.40 Lvl) [facility] HospitalJmockasGKPREUOPA4211-27-88 03:57:00 Test Item Value Reference Range Interpretation Comments Sodium Lvl (test code = Sodium Lvl) 136 135-145 [facility] HospitalFpjmhsfMZMQIOCLN2127-77-17 03:57:00 Test Item Value Reference Range Interpretation Comments Potassium Lvl (test code = Potassium 3.7 3.5-5.1 Lvl) [place] 286112-10-19 03:57:00 Test Item Value Reference Range Interpretation Comments Chloride Lvl (test code = Chloride Lvl) 96 95-109 [facility] CenterZiemayzQTEDCGWNL7812-94-65 03:57:00 Test Item Value Reference Range Interpretation Comments CO2 (test code = CO2) 34 24-32 [facility] CenterAxprhrhZUDMCIFEY3858-82-84 03:57:00 Test Item Value Reference Range Interpretation Comments Calcium Lvl (test code = Calcium Lvl) 9.5 8.5-10.5 [facility] CenterTkxvxqtLTWOOVBUX1423-95-48 03:57:00 Test Item Value Reference Range Interpretation Comments Total Protein (test code = Total 8.4 6.4-8.4 Protein) [facility] HospitalUlgbipnQZTLNESRI8635-93-98 03:57:00 Test Item Value Reference Range Interpretation Comments Albumin Lvl (test code = Albumin Lvl) 2.6 3.5-5.0 [facility] CenterJdvghwgFOABDNQSU5521-36-08 03:57:00 Test Item Value Reference Range Interpretation Comments ALT (test code = ALT) 21 See_Comment [Auto mated message] The system which ge nerated this result transmit delaney reference range : <=65. The reference range was not used to interpr et this result as kiarra l/abnormal. [facility] CenterDtannufQDZLNDHIE9235-79-98 03:57:00 Test Item Value Reference Range Interpretation Comments AST (test code = AST) 13 See_Comment [Auto mated message] The system which ge nerated this result transmit delaney reference range : <=37. The reference range was not used to interpr et this result as kiarra l/abnormal. [facility] CenterFtolqbpRCJZFGELU6137-70-16 03:57:00 Test Item Value Reference Range Interpretation Comments Alk Phos (test code = Alk Phos) 171 39-136 [facility] CenterXhxxcnsQURJJBBWO2756-65-05 03:57:00 Test Item Value Reference Range Interpretation Comments Bili Total (test code = Bili Total) 0.3 0.2-1.3 [facility] CenterXlzvlzeIIWRMNXEU2463-05-04 03:57:00 Test Item Value Reference Range Interpretation Comments AGAP (test code = AGAP) 9.7 10.0-20.0 [facility] CenterOtdrlynQIGYLNLZR8481-58-44 03:57:00 Test Item Value Reference Range Interpretation Comments B/C Ratio (test code = B/C Ratio) 27 1 6-25 [facility] CenterJhasyyiIVYTBCGPG8334-65-64 03:57:00 Test Item Value Reference Range Interpretation Comments Globulin (test code = Globulin) 5.8 2.7-4.2 [facility] CenterRtqulzqYBPIGEPZG0171-49-28 03:57:00 Test Item Value Reference Range Interpretation Comments A/G Ratio (test code = A/G Ratio) 0.4 1 0.7-1.6 [facility] HospitalWzysistVLNPFZFLJ5125-63-81 03:57:00 Test Item Value Reference Range Interpretation Comments eGFR (test code = eGFR) 107 [facility] HospitalScinvjoGGZJFXDGKF7828-09-24 03:57:00 Test Item Value Reference Range Interpretation Comments PT (test code = PT) 13.8 s 12.0-14.7 [facility]etWCLYEYYTNF4642-64-94 03:57:00 Test Item Value Reference Range Interpretation Comments INR (test code = INR) 1.07 1 0.85-1.17 [facility]JpituxlUGBOACOMMU5116-31-37 03:57:00 Test Item Value Reference Range Interpretation Comments PTT (test code = PTT) 29.4 s 22.9-35.8 [facility] HospitalEgmcoatGNBVPQVGBV5057-56-16 03:57:00 Test Item Value Reference Range Interpretation Comments PT (test code = PT) 13.8 s 12.0-14.7 [facility] HospitalPshdfroRUHKCHHQNJ7641-13-63 03:57:00 Test Item Value Reference Range Interpretation Comments INR (test code = INR) 1.07 1 0.85-1.17 [facility] HospitalZkuptoeEOOOHPKPMI7268-46-73 03:57:00 Test Item Value Reference Range Interpretation Comments PTT (test code = PTT) 29.4 s 22.9-35.8 [place] 46645022-10-19 02:57:46 Test Item Value Reference Range Interpretation [...] Within normal limits. No detected fluid collection. NE OCEDURE INFORMATION: Exam: CT Abdomen And Pelvis [...] organized fluid collection. No free air. Vasculature: Tqyw-od-exikrtov aortic atherosclerosis. No aneurysmal dilatation. Lymph nodes: [...] clinically. Dontae Croft MD On 06/20/2022 21:57:25; [id number] [facility] HospitalBisqotgCZWPZY0914-58-83 02:57:46 Test Item Value Reference Range Interpretation [...] Within normal limits. No detected fluid collection. NE OCEDURE INFORMATION: Exam: CT Abdomen And Pelvis [...] organized fluid collection. No free air. Vasculature: Yqwv-un-hqknwqyy aortic atherosclerosis. No aneurysmal dilatation. Lymph nodes: [...] clinically. Dontae Croft MD On 06/20/2022 21:57:25; [id number] [facility] CenterSpeiemsGQPGPB4536-48-23 02:57:46 Test Item Value Reference Range Interpretation [...] Within normal limits. No detected fluid collection. NE OCEDURE INFORMATION: Exam: CT Abdomen And Pelvis [...] organized fluid collection. No free air. Vasculature: Ngar-pq-wrmnndso aortic atherosclerosis. No aneurysmal dilatation. Lymph nodes: [...] clinically. Dontae Croft MD On 06/20/2022 21:57:25; [id number] [facility] CenterBzzdfwoPCDFOW8861-30-62 02:57:46 Test Item Value Reference Range Interpretation [...] Within normal limits. No detected fluid collection. NE OCEDURE INFORMATION: Exam: CT Abdomen And Pelvis [...] organized fluid collection. No free air. Vasculature: Ujjo-sq-yioazqjw aortic atherosclerosis. No aneurysmal dilatation. Lymph nodes: [...] clinically. Dontae Croft MD On 06/20/2022 21:57:25; [id number] [facility] CenterJeimpkhKFKGEW7662-80-09 02:57:46 Test Item Value Reference Range Interpretation [...] Within normal limits. No detected fluid collection. NE OCEDURE INFORMATION: Exam: CT Abdomen And Pelvis [...] organized fluid collection. No free air. Vasculature: Khis-lh-vdrzaxgl aortic atherosclerosis. No aneurysmal dilatation. Lymph nodes: [...] clinically. Dontae Croft MD On 06/20/2022 21:57:25; [id number] [facility] CenterPnsfbscYFKLJK6935-58-06 02:57:46 Test Item Value Reference Range Interpretation [...] Within normal limits. No detected fluid collection. NE OCEDURE INFORMATION: Exam: CT Abdomen And Pelvis [...] organized fluid collection. No free air. Vasculature: Narq-yh-apbjcbaf aortic atherosclerosis. No aneurysmal dilatation. Lymph nodes: [...] clinically. Dontae Croft MD On 06/20/2022 21:57:25; [id number] [facility] CenterNfuljmjOLJLLX3068-31-26 02:57:46 Test Item Value Reference Range Interpretation [...] Within normal limits. No detected fluid collection. NE OCEDURE INFORMATION: Exam: CT Abdomen And Pelvis [...] organized fluid collection. No free air. Vasculature: Xxbt-bn-dtdsiqmr aortic atherosclerosis. No aneurysmal dilatation. Lymph nodes: [...] clinically. Dontae Croft MD On 06/20/2022 21:57:25; [id number] [facility] CenterExgwojkJJCQNHNCIY3392-49-85 02:33:00 Test Item Value Reference Range Interpretation Comments Coronavirus (COVID-19) Not Detected NORMAN (test code = (06/20/22 9:33 PM) Coronavirus (COVID-19) NORMAN) [place] 871662-10-19 02:33:00 Test Item Value Reference Range Interpretation Comments Coronavirus (COVID-19) Not Detected NORMAN (test code = (06/20/22 9:33 PM) Coronavirus (COVID-19) NORMAN) [facility] CenterKtwmaudNHZJJRHMXD6138-45-07 02:33:00 Test Item Value Reference Range Interpretation Comments Coronavirus (COVID-19) Not Detected NORMAN (test code = (06/20/22 9:33 PM) Coronavirus (COVID-19) NORMAN) [place] 871662-10-19 02:33:00 Test Item Value Reference Range Interpretation Comments Coronavirus (COVID-19) Not Detected NORMAN (test code = (06/20/22 9:33 PM) Coronavirus (COVID-19) NORMAN) [place] [address]-10-19 02:33:00 Test Item Value Reference Range Interpretation Comments Coronavirus (COVID-19) Not Detected NORMAN (test code = (06/20/22 9:33 PM) Coronavirus (COVID-19) NORMAN) [place] [address]-10-19 02:33:00 Test Item Value Reference Range Interpretation Comments Coronavirus (COVID-19) Not Detected NORMAN (test code = (06/20/22 9:33 PM) Coronavirus (COVID-19) NORMAN) [address]10-19 02:33:00 Test Item Value Reference Range Interpretation Comments Coronavirus (COVID-19) Not Detected NORMAN (test code = (06/20/22 9:33 PM) Coronavirus (COVID-19) NORMAN) [place] [address]-10-19 02:33:00 Test Item Value Reference Range Interpretation Comments Coronavirus (COVID-19) Not Detected NORMAN (test code = (06/20/22 9:33 PM) Coronavirus (COVID-19) NORMAN) [address]10-19 02:33:00 Test Item Value Reference Range Interpretation Comments Coronavirus (COVID-19) Not Detected NORMAN (test code = (06/20/22 9:33 PM) Coronavirus (COVID-19) NORMAN) [place] [address]-10-19 02:33:00 Test Item Value Reference Range Interpretation Comments Coronavirus (COVID-19) Not Detected NORMAN (test code = (06/20/22 9:33 PM) Coronavirus (COVID-19) NORMAN) [place] [address]-10-19 02:33:00 Test Item Value Reference Range Interpretation Comments Coronavirus (COVID-19) Not Detected NORMAN (test code = (06/20/22 9:33 PM) Coronavirus (COVID-19) NORMAN) [place] [address]-10-19 02:33:00 Test Item Value Reference Range Interpretation Comments Coronavirus (COVID-19) Not Detected NORMAN (test code = (06/20/22 9:33 PM) Coronavirus (COVID-19) NORMAN) [facility] CenterYlljoniHFXYMUDDAY2389-91-07 02:33:00 Test Item Value Reference Range Interpretation Comments Coronavirus (COVID-19) Not Detected NORMAN (test code = (06/20/22 9:33 PM) Coronavirus (COVID-19) NORMAN) [facility] CenterOgbgsmsCANCBIFZFP1892-01-88 02:33:00 Test Item Value Reference Range Interpretation Comments Coronavirus (COVID-19) Not Detected NORMAN (test code = (06/20/22 9:33 PM) Coronavirus (COVID-19) NORMAN) [place] 46645022-10-19 02:07:43 Test Item Value Reference Range Interpretation [...] findings. Kwadwo Tran MD On 06/20/2022 21:06:20; [id number] [place] 46645022-10-19 02:07:43 Test Item Value Reference Range Interpretation [...] findings. Kwadwo Tran MD On 06/20/2022 21:06:20; [id number] [place] 46645022-10-19 02:07:43 Test Item Value Reference Range Interpretation [...] findings. Kwadwo Tran MD On 06/20/2022 21:06:20; [id number] [facility] HospitalZgaprmzCCNBSQ0063-24-36 02:07:43 Test Item Value Reference Range Interpretation [...] findings. Kwadwo Tran MD On 06/20/2022 21:06:20; [id number] [facility] HospitalImttfefMQQACV8193-97-11 02:07:43 Test Item Value Reference Range Interpretation [...] findings. Kwadwo Tran MD On 06/20/2022 21:06:20; [id number] [facility] HospitalGrzvyfpYIFIVS8570-33-80 02:07:43 Test Item Value Reference Range Interpretation [...] findings. Kwadwo Tran MD On 06/20/2022 21:06:20; [id number] [facility] HospitalYdjgvzsVNZOOT4327-90-98 02:07:43 Test Item Value Reference Range Interpretation [...] findings. Kwadwo Tran MD On 06/20/2022 21:06:20; [id number] [facility] HospitalVowdqnfUVQDZWFJGT0214-49-10 00:50:00 Test Item Value Reference Range Interpretation Comments Monocytes # (test code 1.1 See_Comment [Aut omated message] The = Monocytes #) system which generated this result tra nsmitted reference range : <=0.8. The reference r kyle was not used to int erpret this result as normal/abnormal . [facility] HospitalTyxqgzqQODLHFDZXE0455-35-60 00:50:00 Test Item Value Reference Range Interpretation Comments Eosinophils # (test code 0.2 See_Comment [A utomated message] The = Eosinophils #) system ic h generated this result tra nsmitted reference range : <=0.5. The reference r kyle was not used to int erpret this result as normal/abnormal . [facility] HospitalOutkqehJXXDWQTVYU0432-39-31 00:50:00 Test Item Value Reference Range Interpretation Comments Basophils # (test code 0.1 See_Comment [Aut omated message] The = Basophils #) system which generated this result tra nsmitted reference range : <=0.2. The reference r kyle was not used to int erpret this result as normal/abnormal . [facility] HospitalRooptzpODFHNETMJC8526-88-68 00:50:00 Test Item Value Reference Range Interpretation Comments WBC (test code = WBC) 16.9 3.7-10.4 [id number] 00:50:00 Test Item Value Reference Range Interpretation Comments RBC (test code = RBC) 4.52 4.20-5.40 [facility]FxwtjvoEVHDXPNPAC8359-66-44 00:50:00 Test Item Value Reference Range Interpretation Comments Hgb (test code = Hgb) 13.0 12.0-16.0 [facility] HospitalBjplbiySCJQELGZEE5917-33-70 00:50:00 Test Item Value Reference Range Interpretation Comments Hct (test code = Hct) 39.0 36.0-48.0 [facility] HospitalGutnhzoMMFFRCLIMD9762-86-54 00:50:00 Test Item Value Reference Range Interpretation Comments MCV (test code = MCV) 86.1 80.0-98.0 [facility] HospitalXyvvnrwZPRLIFMFPH7223-57-74 00:50:00 Test Item Value Reference Range Interpretation Comments MCH (test code = MCH) 28.7 pg 27.0-31.0 [facility] HospitalMlihccaMCJSPOGUXP4732-80-85 00:50:00 Test Item Value Reference Range Interpretation Comments MCHC (test code = MCHC) 33.3 32.0-36.0 [facility] HospitalNhmffehABSFFGEGHD2296-66-37 00:50:00 Test Item Value Reference Range Interpretation Comments RDW (test code = RDW) 12.8 11.5-14.5 [facility] HospitalJanvsazNNQTSRHSIX2325-69-12 00:50:00 Test Item Value Reference Range Interpretation Comments Platelet (test code = Platelet) 488 133-450 [facility] HospitalOkeekkkTRGUIBHBDY1917-52-93 00:50:00 Test Item Value Reference Range Interpretation Comments MPV (test code = MPV) 8.3 7.4-10.4 [facility] HospitalSiaremiKSDIWNLPBP4690-47-87 00:50:00 Test Item Value Reference Range Interpretation Comments PT (test code = PT) 13.5 s 12.0-14.7 [facility] HospitalEmrdnrmMQKPUMYEPH2199-51-19 00:50:00 Test Item Value Reference Range Interpretation Comments INR (test code = INR) 1.04 1 0.85-1.17 [facility] HospitalXdraemqENPLIOSBOQ4529-21-37 00:50:00 Test Item Value Reference Range Interpretation Comments PTT (test code = PTT) 31.2 s 22.9-35.8 [facility] HospitalBnuvkhiJQVCCZACRS3299-22-32 00:50:00 Test Item Value Reference Range Interpretation Comments Segs (test code = Segs) 72.4 45.0-75.0 [facility] HospitalUhwzcgsSMWSGYXCOW4536-45-33 00:50:00 Test Item Value Reference Range Interpretation Comments Lymphocytes (test code = Lymphocytes) 19.8 20.0-40.0 [facility] HospitalIwzjhsjNQZPAXBSQD5031-77-51 00:50:00 Test Item Value Reference Range Interpretation Comments Monocytes (test code = Monocytes) 6.4 2.0-12.0 [facility] HospitalFxmchbiGNMIINYYSI0876-21-45 00:50:00 Test Item Value Reference Range Interpretation Comments Eosinophils (test code = 0.9 See_Comment [A utomated message] The Eosinophils) system which ge nerated this result tra nsmitted reference range : <=4.0. The reference r kyle was not used to int erpret this result as normal/abnormal . [facility] HospitalJruiufpHXFKUROMDN6783-88-69 00:50:00 Test Item Value Reference Range Interpretation Comments Basophils (test code = 0.5 See_Comment [Aut omated message] The Basophils) system which ge nerated this result tra nsmitted reference range : <=1.0. The reference r kyle was not used to int erpret this result as normal/abnormal . [facility] HospitalIvxnkmlAIJMCAUMAE1895-12-14 00:50:00 Test Item Value Reference Range Interpretation Comments Neutrophils # (test code = Neutrophils 12.2 1.5-8.1 #) [facility] HospitalHxlyeyiSJZIHTUYGH7539-23-80 00:50:00 Test Item Value Reference Range Interpretation Comments Lymphocytes # (test code = Lymphocytes 3.4 1.0-5.5 #) [facility] HospitalJkmxlnhTJJWOMQBTA3273-06-83 00:50:00 Test Item Value Reference Range Interpretation Comments Monocytes # (test code 1.1 See_Comment [Aut omated message] The = Monocytes #) system which generated this result tra nsmitted reference range : <=0.8. The reference r kyle was not used to int erpret this result as normal/abnormal . [facility] JqnwousJMXFAFKIFY4358-30-91 00:50:00 Test Item Value Reference Range Interpretation Comments Eosinophils # (test code 0.2 See_Comment [A utomated message] The = Eosinophils #) system whic h generated this result tra nsmitted reference range : <=0.5. The reference r kyle was not used to int erpret this result as normal/abnormal . [facility] NyehynlWUMXWRRRSV2692-40-14 00:50:00 Test Item Value Reference Range Interpretation Comments Basophils # (test code 0.1 See_Comment [Aut omated message] The = Basophils #) system which generated this result tra nsmitted reference range : <=0.2. The reference r kyle was not used to int erpret this result as normal/abnormal . [facility] [employer] [id number] 00:50:00 Test Item Value Reference Range Interpretation Comments ABO/Rh (test code = ABO/Rh) O POS [facility] [employer] [id number] 00:50:00 Test Item Value Reference Range Interpretation Comments Antibody Scrn (test Negative (06/20/22 code = Antibody Scrn) 7:50 PM) [facility] [employer] [id number] 00:50:00 Test Item Value Reference Range Interpretation Comments ABO/Rh (test code = ABO/Rh) O POS [facility] [employer] [id number] 00:50:00 Test Item Value Reference Range Interpretation Comments Antibody Scrn (test Negative (06/20/22 code = Antibody Scrn) 7:50 PM) [employer] [id number] 00:50:00 Test Item Value Reference Range Interpretation Comments Glucose Lvl (test code = Glucose Lvl) 154 70-99 [facility] [employer] [id number] 00:50:00 Test Item Value Reference Range Interpretation Comments BUN (test code = BUN) 18 7-22 [facility]2022-10-19 00:50:00 Test Item Value Reference Range Interpretation Comments Creatinine Lvl (test code = Creatinine 0.65 0.50-1.40 Lvl) [facility] [id number] 00:50:00 Test Item Value Reference Range Interpretation Comments Sodium Lvl (test code = Sodium Lvl) 137 135-145 [facility] [id number] 00:50:00 Test Item Value Reference Range Interpretation Comments Potassium Lvl (test code = Potassium 3.9 3.5-5.1 Lvl) [facility] [id number] 00:50:00 Test Item Value Reference Range Interpretation Comments Chloride Lvl (test code = Chloride Lvl) 99 95-109 [facility] [id number] 00:50:00 Test Item Value Reference Range Interpretation Comments CO2 (test code = CO2) 31 24-32 [facility] [id number] 00:50:00 Test Item Value Reference Range Interpretation Comments Calcium Lvl (test code = Calcium Lvl) 9.9 8.5-10.5 [facility] [id number] 00:50:00 Test Item Value Reference Range Interpretation Comments Total Protein (test code = Total 9.0 6.4-8.4 Protein) [facility] [id number] 00:50:00 Test Item Value Reference Range Interpretation Comments Albumin Lvl (test code = Albumin Lvl) 2.6 3.5-5.0 [facility] [id number] 00:50:00 Test Item Value Reference Range Interpretation Comments ALT (test code = ALT) 23 See_Comment [Auto mated message] The system which ge nerated this result transmit delaney reference range : <=65. The reference range was not used to interpr et this result as kiarra l/abnormal. [facility] [id number] 00:50:00 Test Item Value Reference Range Interpretation Comments AST (test code = AST) 26 See_Comment [Auto mated message] The system which ge nerated this result transmit delaney reference range : <=37. The reference range was not used to interpr et this result as kiarra l/abnormal. [facility] [id number] 00:50:00 Test Item Value Reference Range Interpretation Comments Alk Phos (test code = Alk Phos) 181 39-136 [facility] [id number] 00:50:00 Test Item Value Reference Range Interpretation Comments Bili Total (test code = Bili Total) 0.4 0.2-1.3 [facility]2022-10-19 00:50:00 Test Item Value Reference Range Interpretation Comments AGAP (test code = AGAP) 10.9 10.0-20.0 [facility]2022-10-19 00:50:00 Test Item Value Reference Range Interpretation Comments B/C Ratio (test code = B/C Ratio) 28 1 6-25 [facility]2022-10-19 00:50:00 Test Item Value Reference Range Interpretation Comments Globulin (test code = Globulin) 6.4 2.7-4.2 [facility]2022-10-19 00:50:00 Test Item Value Reference Range Interpretation Comments A/G Ratio (test code = A/G Ratio) 0.4 1 0.7-1.6 [facility]2022-10-19 00:50:00 Test Item Value Reference Range Interpretation Comments eGFR (test code = eGFR) 105 [facility]WT[facility]31 00:50:00 Test Item Value Reference Range Interpretation Comments S Preg (test code = S Negative *NA*(06/20/22 Preg) 7:50 PM) [facility]LiqbqboIHHNSUACUDJDM5419-96-37 00:50:00 Test Item Value Reference Range Interpretation Comments S Preg (test code = S Negative *NA*(06/20/22 Preg) 7:50 PM) [facility] HospitalFxjhlypDWAXWNNENI2958-50-16 00:50:00 Test Item Value Reference Range Interpretation Comments WBC (test code = WBC) 16.9 3.7-10.4 [place] 587612-10-19 00:50:00 Test Item Value Reference Range Interpretation Comments RBC (test code = RBC) 4.52 4.20-5.40 [place] [id number] 00:50:00 Test Item Value Reference Range Interpretation Comments Hgb (test code = Hgb) 13.0 12.0-16.0 [place] 587612-10-19 00:50:00 Test Item Value Reference Range Interpretation Comments Hct (test code = Hct) 39.0 36.0-48.0 [facility] HospitalFzcmpqjJVRPFFTFDR6857-26-85 00:50:00 Test Item Value Reference Range Interpretation Comments MCV (test code = MCV) 86.1 80.0-98.0 [facility] HospitalZvabgoyGURCPXQGSN5167-08-28 00:50:00 Test Item Value Reference Range Interpretation Comments MCH (test code = MCH) 28.7 pg 27.0-31.0 [facility] HospitalMxecfyfRJWPKSZRIX6748-85-57 00:50:00 Test Item Value Reference Range Interpretation Comments MCHC (test code = MCHC) 33.3 32.0-36.0 [facility] HospitalNbhyjxyWXLUIBWNPZ1656-37-96 00:50:00 Test Item Value Reference Range Interpretation Comments RDW (test code = RDW) 12.8 11.5-14.5 [facility] HospitalCewxdxvVHNPGXZWES8984-54-66 00:50:00 Test Item Value Reference Range Interpretation Comments Platelet (test code = Platelet) 488 133-450 [facility] HospitalFterfwlDOEJUQNJZH7643-23-67 00:50:00 Test Item Value Reference Range Interpretation Comments MPV (test code = MPV) 8.3 7.4-10.4 [facility] HospitalEnerpfpHKXNOFAOBH6800-39-87 00:50:00 Test Item Value Reference Range Interpretation Comments Segs (test code = Segs) 72.4 45.0-75.0 [facility] HospitalChszvulCTBPPRDOTB0714-33-97 00:50:00 Test Item Value Reference Range Interpretation Comments Lymphocytes (test code = Lymphocytes) 19.8 20.0-40.0 [facility] HospitalDkvhuhrKDDLXESVFX4468-13-70 00:50:00 Test Item Value Reference Range Interpretation Comments Monocytes (test code = Monocytes) 6.4 2.0-12.0 [facility] HospitalGzuiwcrOOKJHSGNFJ3808-06-63 00:50:00 Test Item Value Reference Range Interpretation Comments Eosinophils (test code = 0.9 See_Comment [A utomated message] The Eosinophils) system which ge nerated this result tra nsmitted reference range : <=4.0. The reference r kyle was not used to int erpret this result as normal/abnormal . [facility] HospitalPokjsckRHAFMLQMMC5783-29-73 00:50:00 Test Item Value Reference Range Interpretation Comments Basophils (test code = 0.5 See_Comment [Aut omated message] The Basophils) system which ge nerated this result tra nsmitted reference range : <=1.0. The reference r kyle was not used to int erpret this result as normal/abnormal . [facility] HospitalXiojbpcTCCBYMZAXU7479-20-90 00:50:00 Test Item Value Reference Range Interpretation Comments Neutrophils # (test code = Neutrophils 12.2 1.5-8.1 #) [facility] HospitalWeehfdmOHPEVUOMTH0005-13-90 00:50:00 Test Item Value Reference Range Interpretation Comments Lymphocytes # (test code = Lymphocytes 3.4 1.0-5.5 #) [facility] HospitalXcuohrqEETIXAWEWI9781-42-81 00:50:00 Test Item Value Reference Range Interpretation Comments Monocytes # (test code 1.1 See_Comment [Aut omated message] The = Monocytes #) system which generated this result tra nsmitted reference range : <=0.8. The reference r kyle was not used to int erpret this result as normal/abnormal . [facility] HospitalYudygwyWKVDRUPIAG9782-01-83 00:50:00 Test Item Value Reference Range Interpretation Comments Eosinophils # (test code 0.2 See_Comment [A utomated message] The = Eosinophils #) system whic h generated this result tra nsmitted reference range : <=0.5. The reference r kyle was not used to int erpret this result as normal/abnormal . [facility] HospitalKrtsyqlAKYTSSSJQQ9786-24-53 00:50:00 Test Item Value Reference Range Interpretation Comments Basophils # (test code 0.1 See_Comment [Aut omated message] The = Basophils #) system which generated this result tra nsmitted reference range : <=0.2. The reference r kyle was not used to int erpret this result as normal/abnormal . [facility] HospitalDzpifzyQZLCGEWIYZ4196-32-18 00:50:00 Test Item Value Reference Range Interpretation Comments WBC (test code = WBC) 16.9 3.7-10.4 [facility] HospitalAlpbpcgQIGKQMBTJZ1785-25-23 00:50:00 Test Item Value Reference Range Interpretation Comments RBC (test code = RBC) 4.52 4.20-5.40 [facility] HospitalQaztjuhOMJQFGWBAI6594-88-86 00:50:00 Test Item Value Reference Range Interpretation Comments Hgb (test code = Hgb) 13.0 12.0-16.0 [place] 587612-10-19 00:50:00 Test Item Value Reference Range Interpretation Comments Hct (test code = Hct) 39.0 36.0-48.0 [facility] HospitalQshmcncSKQFYCYBZB0506-09-47 00:50:00 Test Item Value Reference Range Interpretation Comments MCV (test code = MCV) 86.1 80.0-98.0 [facility] HospitalMjbvzvkFQMYQSCLIB4810-04-57 00:50:00 Test Item Value Reference Range Interpretation Comments MCH (test code = MCH) 28.7 pg 27.0-31.0 [facility] HospitalDdgrgtdYQHXMVXAZL1704-41-50 00:50:00 Test Item Value Reference Range Interpretation Comments MCHC (test code = MCHC) 33.3 32.0-36.0 [facility] HospitalMnupombABOUAVILEX4325-17-85 00:50:00 Test Item Value Reference Range Interpretation Comments RDW (test code = RDW) 12.8 11.5-14.5 [facility] HospitalDpnjipxRKCWUDTYIX5410-86-96 00:50:00 Test Item Value Reference Range Interpretation Comments Platelet (test code = Platelet) 488 133-450 [facility] HospitalEcsemfvXPQVOSWJKM1686-39-76 00:50:00 Test Item Value Reference Range Interpretation Comments MPV (test code = MPV) 8.3 7.4-10.4 [facility] HospitalOedgkapNXRFOQKFRB0340-78-66 00:50:00 Test Item Value Reference Range Interpretation Comments PT (test code = PT) 13.5 s 12.0-14.7 [facility] HospitalPrreinjZWSHNBSWXK2818-74-17 00:50:00 Test Item Value Reference Range Interpretation Comments INR (test code = INR) 1.04 1 0.85-1.17 [facility] HospitalTrgdugkGUUCTXPUUD7454-27-47 00:50:00 Test Item Value Reference Range Interpretation Comments PTT (test code = PTT) 31.2 s 22.9-35.8 [facility] HospitalQyisbchOIKXWDMKWQ3500-01-16 00:50:00 Test Item Value Reference Range Interpretation Comments Segs (test code = Segs) 72.4 45.0-75.0 [facility] HospitalLpljzcoSPSKNLMILE6644-01-83 00:50:00 Test Item Value Reference Range Interpretation Comments Lymphocytes (test code = Lymphocytes) 19.8 20.0-40.0 [facility] HospitalKfztwmtOOEQRTWVWK5559-88-78 00:50:00 Test Item Value Reference Range Interpretation Comments Monocytes (test code = Monocytes) 6.4 2.0-12.0 [place] 587612-10-19 00:50:00 Test Item Value Reference Range Interpretation Comments Eosinophils (test code = 0.9 See_Comment [A utomated message] The Eosinophils) system which ge nerated this result tra nsmitted reference range : <=4.0. The reference r kyle was not used to int erpret this result as normal/abnormal . [facility] HospitalInyhizaTMEOCQMCXL6894-91-50 00:50:00 Test Item Value Reference Range Interpretation Comments Basophils (test code = 0.5 See_Comment [Aut omated message] The Basophils) system which ge nerated this result tra nsmitted reference range : <=1.0. The reference r kyle was not used to int erpret this result as normal/abnormal . [facility] HospitalTfunpvcXQUGELGFCP1229-91-86 00:50:00 Test Item Value Reference Range Interpretation Comments Neutrophils # (test code = Neutrophils 12.2 1.5-8.1 #) [facility] HospitalPrziczvQFADULGIXO7599-31-17 00:50:00 Test Item Value Reference Range Interpretation Comments Lymphocytes # (test code = Lymphocytes 3.4 1.0-5.5 #) [facility] HospitalQhhvxivSLUGMTXARM2482-61-52 00:50:00 Test Item Value Reference Range Interpretation Comments Monocytes # (test code 1.1 See_Comment [Aut omated message] The = Monocytes #) system which generated this result tra nsmitted reference range : <=0.8. The reference r kyle was not used to int erpret this result as normal/abnormal . [facility] HospitalVxnmquwNLAYXZKSZO2653-59-66 00:50:00 Test Item Value Reference Range Interpretation Comments Eosinophils # (test code 0.2 See_Comment [A utomated message] The = Eosinophils #) system [facility] generated this result tra nsmitted reference range : <=0.5. The reference r kyle was not used to int erpret this result as normal/abnormal . [facility] HospitalJyopperTMOCYSQNNK1445-73-74 00:50:00 Test Item Value Reference Range Interpretation Comments Basophils # (test code 0.1 See_Comment [Aut omated message] The = Basophils #) system which generated this result tra nsmitted reference range : <=0.2. The reference r kyle was not used to int erpret this result as normal/abnormal . [facility] ZJMNBXP5232-63-83 00:50:00 Test Item Value Reference Range Interpretation Comments ABO/Rh (test code = ABO/Rh) O POS [facility] [employer] HJGJYQN8825-38-84 00:50:00 Test Item Value Reference Range Interpretation Comments Antibody Scrn (test Negative (06/20/22 code = Antibody Scrn) 7:50 PM) [facility] [employer] [id number] 00:50:00 Test Item Value Reference Range Interpretation Comments ABO/Rh (test code = ABO/Rh) O POS [facility] [employer] [id number] 00:50:00 Test Item Value Reference Range Interpretation Comments Antibody Scrn (test Negative (06/20/22 code = Antibody Scrn) 7:50 PM) [employer] [id number] 00:50:00 Test Item Value Reference Range Interpretation Comments Glucose Lvl (test code = Glucose Lvl) 154 70-99 [facility] [employer] [id number] 00:50:00 Test Item Value Reference Range Interpretation Comments BUN (test code = BUN) 18 7-22 [facility] [employer] [id number] 00:50:00 Test Item Value Reference Range Interpretation Comments Creatinine Lvl (test code = Creatinine 0.65 0.50-1.40 Lvl) [employer] [id number] 00:50:00 Test Item Value Reference Range Interpretation Comments Sodium Lvl (test code = Sodium Lvl) 137 135-145 [facility] [employer] [id number] 00:50:00 Test Item Value Reference Range Interpretation Comments Potassium Lvl (test code = Potassium 3.9 3.5-5.1 Lvl) [facility] [employer] [id number] 00:50:00 Test Item Value Reference Range Interpretation Comments Chloride Lvl (test code = Chloride Lvl) 99 95-109 [employer] [id number] 00:50:00 Test Item Value Reference Range Interpretation Comments CO2 (test code = CO2) 31 24-32 [facility] [employer] [id number] 00:50:00 Test Item Value Reference Range Interpretation Comments Calcium Lvl (test code = Calcium Lvl) 9.9 8.5-10.5 [facility] [employer] [id number] 00:50:00 Test Item Value Reference Range Interpretation Comments Total Protein (test code = Total 9.0 6.4-8.4 Protein) [facility] [employer] [id number] 00:50:00 Test Item Value Reference Range Interpretation Comments Albumin Lvl (test code = Albumin Lvl) 2.6 3.5-5.0 [facility] [employer] [id number] 00:50:00 Test Item Value Reference Range Interpretation Comments ALT (test code = ALT) 23 See_Comment [Auto mated message] The system which ge nerated this result transmit delaney reference range : <=65. The reference range was not used to interpr et this result as kiarra l/abnormal. [facility] [employer] [id number] 00:50:00 Test Item Value Reference Range Interpretation Comments AST (test code = AST) 26 See_Comment [Auto mated message] The system which ge nerated this result transmit delaney reference range : <=37. The reference range was not used to interpr et this result as kiarra l/abnormal. [facility] [employer] [id number] 00:50:00 Test Item Value Reference Range Interpretation Comments Alk Phos (test code = Alk Phos) 181 39-136 [facility] [employer] [id number] 00:50:00 Test Item Value Reference Range Interpretation Comments Bili Total (test code = Bili Total) 0.4 0.2-1.3 [facility] [employer] [id number] 00:50:00 Test Item Value Reference Range Interpretation Comments AGAP (test code = AGAP) 10.9 10.0-20.0 [facility] [employer] [id number] 00:50:00 Test Item Value Reference Range Interpretation Comments B/C Ratio (test code = B/C Ratio) 28 1 6-25 [facility] [employer] [id number] 00:50:00 Test Item Value Reference Range Interpretation Comments Globulin (test code = Globulin) 6.4 2.7-4.2 [facility] [employer] [id number] 00:50:00 Test Item Value Reference Range Interpretation Comments A/G Ratio (test code = A/G Ratio) 0.4 1 0.7-1.6 [facility] [employer] [id number] 00:50:00 Test Item Value Reference Range Interpretation Comments eGFR (test code = eGFR) 105 [facility] EoakfwqBABXQIKBL7144-39-98 00:50:00 Test Item Value Reference Range Interpretation Comments S Preg (test code = S Negative *NA*(06/20/22 Preg) 7:50 PM) [facility]vvupkdRXCNTKIYBFHHT0635-26-28 00:50:00 Test Item Value Reference Range Interpretation Comments S Preg (test code = S Negative *NA*(06/20/22 Preg) 7:50 PM) [facility] HospitalIsoqikeJHZUCHXNFP1371-47-86 00:50:00 Test Item Value Reference Range Interpretation Comments WBC (test code = WBC) 16.9 3.7-10.4 [facility] HospitalGvirzrgNCMUUDUYEU4450-20-18 00:50:00 Test Item Value Reference Range Interpretation Comments RBC (test code = RBC) 4.52 4.20-5.40 [facility] HospitalVgukoebHQHNIKEDQZ1493-71-34 00:50:00 Test Item Value Reference Range Interpretation Comments Hgb (test code = Hgb) 13.0 12.0-16.0 [place] [facility]AknunupJOWNDAXFXS7328-00-34 00:50:00 Test Item Value Reference Range Interpretation Comments Hct (test code = Hct) 39.0 36.0-48.0 [facility]AhgtcdhHMQFGQFMJM8989-73-79 00:50:00 Test Item Value Reference Range Interpretation Comments MCV (test code = MCV) 86.1 80.0-98.0 [facility] HospitalFpkxfmzHGJAQLMBNU8309-04-20 00:50:00 Test Item Value Reference Range Interpretation Comments MCH (test code = MCH) 28.7 pg 27.0-31.0 [facility] HospitalMctfvdoUBKYKABGZG3715-09-11 00:50:00 Test Item Value Reference Range Interpretation Comments MCHC (test code = MCHC) 33.3 32.0-36.0 [facility] HospitalWswhbonDPMYOGSPEB4710-44-06 00:50:00 Test Item Value Reference Range Interpretation Comments RDW (test code = RDW) 12.8 11.5-14.5 [facility] HospitalBuyfgxeRSZYGFJJXD9804-60-17 00:50:00 Test Item Value Reference Range Interpretation Comments Platelet (test code = Platelet) 488 133-450 [facility] HospitalVtafoymVKTGOJTLPJ7751-39-91 00:50:00 Test Item Value Reference Range Interpretation Comments MPV (test code = MPV) 8.3 7.4-10.4 [facility] HospitalPodsjmfKMAUSAMGID6161-39-86 00:50:00 Test Item Value Reference Range Interpretation Comments Segs (test code = Segs) 72.4 45.0-75.0 [facility] HospitalDtcakpeDZVFRWWAGC7096-89-80 00:50:00 Test Item Value Reference Range Interpretation Comments Lymphocytes (test code = Lymphocytes) 19.8 20.0-40.0 [facility] HospitalOcmtzqhEIHEEFGZXJ7203-96-03 00:50:00 Test Item Value Reference Range Interpretation Comments Monocytes (test code = Monocytes) 6.4 2.0-12.0 [facility] HospitalAdqhqqsZKZTYNFPRZ9889-87-76 00:50:00 Test Item Value Reference Range Interpretation Comments Eosinophils (test code = 0.9 See_Comment [A utomated message] The Eosinophils) system which ge nerated this result tra nsmitted reference range : <=4.0. The reference r kyle was not used to int erpret this result as normal/abnormal . [facility] HospitalUzefxbjDQGCWINBKO6946-20-33 00:50:00 Test Item Value Reference Range Interpretation Comments Basophils (test code = 0.5 See_Comment [Aut omated message] The Basophils) system which ge nerated this result tra nsmitted reference range : <=1.0. The reference r kyle was not used to int erpret this result as normal/abnormal . [facility] HospitalKxipcxxVUTLBBYYWP1492-76-51 00:50:00 Test Item Value Reference Range Interpretation Comments Neutrophils # (test code = Neutrophils 12.2 1.5-8.1 #) [facility] HospitalFecbgrzRTWPSXRIWD5573-31-77 00:50:00 Test Item Value Reference Range Interpretation Comments Lymphocytes # (test code = Lymphocytes 3.4 1.0-5.5 #) [facility] HospitalPlhatsbXPKKAFFIYC7661-11-47 00:50:00 Test Item Value Reference Range Interpretation Comments Monocytes # (test code 1.1 See_Comment [Aut omated message] The = Monocytes #) system which generated this result tra nsmitted reference range : <=0.8. The reference r kyle was not used to int erpret this result as normal/abnormal . [facility] HospitalKwjokugLYJUFYPXOY2896-08-12 00:50:00 Test Item Value Reference Range Interpretation Comments Eosinophils # (test code 0.2 See_Comment [A utomated message] The = Eosinophils #) system whic h generated this result tra nsmitted reference range : <=0.5. The reference r kyle was not used to int erpret this result as normal/abnormal . [facility] HospitalAzkywxjZFEBXYHFVE5217-18-65 00:50:00 Test Item Value Reference Range Interpretation Comments Basophils # (test code 0.1 See_Comment [Aut omated message] The = Basophils #) system which generated this result tra nsmitted reference range : <=0.2. The reference r kyle was not used to int erpret this result as normal/abnormal . [facility] HospitalXwqbvjyDBESYBGCDB9354-43-85 00:50:00 Test Item Value Reference Range Interpretation Comments WBC (test code = WBC) 16.9 3.7-10.4 [facility] HospitalFcoutvnDDFKTCSPXE5136-66-86 00:50:00 Test Item Value Reference Range Interpretation Comments RBC (test code = RBC) 4.52 4.20-5.40 [facility] HospitalVhxaftwTNFBLJDHAM1647-22-82 00:50:00 Test Item Value Reference Range Interpretation Comments Hgb (test code = Hgb) 13.0 12.0-16.0 [facility] HospitalWplcpuxZTDUFGOQVN5678-71-18 00:50:00 Test Item Value Reference Range Interpretation Comments Hct (test code = Hct) 39.0 36.0-48.0 [facility] HospitalZweelfvMDPIYNHFKZ7475-94-56 00:50:00 Test Item Value Reference Range Interpretation Comments MCV (test code = MCV) 86.1 80.0-98.0 [facility] HospitalYhwpwbgUBICCZAPVX1548-03-24 00:50:00 Test Item Value Reference Range Interpretation Comments MCH (test code = MCH) 28.7 pg 27.0-31.0 [facility] HospitalWnpvdsqMIWMSHPGCX4120-38-52 00:50:00 Test Item Value Reference Range Interpretation Comments MCHC (test code = MCHC) 33.3 32.0-36.0 [facility] HospitalQoftfpdOJJJIVCWCC6167-28-01 00:50:00 Test Item Value Reference Range Interpretation Comments RDW (test code = RDW) 12.8 11.5-14.5 [facility] HospitalOohexhiGWGJLXEZAF9426-82-40 00:50:00 Test Item Value Reference Range Interpretation Comments Platelet (test code = Platelet) 488 133-450 [facility] HospitalTanjrygYHUSKJFLJW5902-39-94 00:50:00 Test Item Value Reference Range Interpretation Comments MPV (test code = MPV) 8.3 7.4-10.4 [facility] HospitalCxwotfcRSYPWCDBPB1483-34-14 00:50:00 Test Item Value Reference Range Interpretation Comments PT (test code = PT) 13.5 s 12.0-14.7 [facility] HospitalNtenndpDAGUSHITMH6508-30-57 00:50:00 Test Item Value Reference Range Interpretation Comments INR (test code = INR) 1.04 1 0.85-1.17 [facility] HospitalZrsmiknQNXQHCULYP7746-28-49 00:50:00 Test Item Value Reference Range Interpretation Comments PTT (test code = PTT) 31.2 s 22.9-35.8 [facility] HospitalZpubyqjSUCPOKBPVG5331-85-86 00:50:00 Test Item Value Reference Range Interpretation Comments Segs (test code = Segs) 72.4 45.0-75.0 [facility] HospitalJjvddosFGBEUYLQPO5744-40-26 00:50:00 Test Item Value Reference Range Interpretation Comments Lymphocytes (test code = Lymphocytes) 19.8 20.0-40.0 [facility] HospitalMlrcabzIRGWBBQASF8483-78-09 00:50:00 Test Item Value Reference Range Interpretation Comments Monocytes (test code = Monocytes) 6.4 2.0-12.0 [facility] HospitalPtjwsqkFWKYYRBEFQ4982-76-12 00:50:00 Test Item Value Reference Range Interpretation Comments Eosinophils (test code = 0.9 See_Comment [A utomated message] The Eosinophils) system which ge nerated this result tra nsmitted reference range : <=4.0. The reference r kyle was not used to int erpret this result as normal/abnormal . [facility] HospitalCaeugkgPYHPSCDHQJ0056-81-88 00:50:00 Test Item Value Reference Range Interpretation Comments Basophils (test code = 0.5 See_Comment [Aut omated message] The Basophils) system which ge nerated this result tra nsmitted reference range : <=1.0. The reference r kyle was not used to int erpret this result as normal/abnormal . [facility] HospitalQfjejqhDOXTKJUMCP3546-08-21 00:50:00 Test Item Value Reference Range Interpretation Comments Neutrophils # (test code = Neutrophils 12.2 1.5-8.1 #) [facility] HospitalRusurflBQAZPGENXX8555-32-64 00:50:00 Test Item Value Reference Range Interpretation Comments Lymphocytes # (test code = Lymphocytes 3.4 1.0-5.5 #) [facility]:50:00 Test Item Value Reference Range Interpretation Comments Monocytes # (test code 1.1 See_Comment [Aut omated message] The = Monocytes #) system which generated this result tra nsmitted reference range : <=0.8. The reference r kyle was not used to int erpret this result as normal/abnormal . [facility]HqfkcmeVUSIBGJZZE4291-86-67 00:50:00 Test Item Value Reference Range Interpretation Comments Eosinophils # (test code 0.2 See_Comment [A utomated message] The = Eosinophils #) system whic h generated this result tra nsmitted reference range : <=0.5. The reference r kyle was not used to int erpret this result as normal/abnormal . [facility] YxdahdyOJXJDHGPLU9071-99-25 00:50:00 Test Item Value Reference Range Interpretation Comments Basophils # (test code 0.1 See_Comment [Aut omated message] The = Basophils #) system which generated this result tra nsmitted reference range : <=0.2. The reference r kyle was not used to int erpret this result as normal/abnormal . [facility] [employer] UCVHSPR1931-03-36 00:50:00 Test Item Value Reference Range Interpretation Comments ABO/Rh (test code = ABO/Rh) O POS [facility] [employer] UHFVUDQ8228-16-19 00:50:00 Test Item Value Reference Range Interpretation Comments Antibody Scrn (test Negative (06/20/22 code = Antibody Scrn) 7:50 PM) [facility] [employer] [id number] 00:50:00 Test Item Value Reference Range Interpretation Comments ABO/Rh (test code = ABO/Rh) O POS [facility] [employer] [id number] 00:50:00 Test Item Value Reference Range Interpretation Comments Antibody Scrn (test Negative (06/20/22 code = Antibody Scrn) 7:50 PM) [employer] QQLVB3453-15-11 00:50:00 Test Item Value Reference Range Interpretation Comments Glucose Lvl (test code = Glucose Lvl) 154 70-99 [facility]2022-10-19 00:50:00 Test Item Value Reference Range Interpretation Comments BUN (test code = BUN) 18 7-22 [facility]2022-10-19 00:50:00 Test Item Value Reference Range Interpretation Comments Creatinine Lvl (test code = Creatinine 0.65 0.50-1.40 Lvl) [facility] TTJMZ9025-05-14 00:50:00 Test Item Value Reference Range Interpretation Comments Sodium Lvl (test code = Sodium Lvl) 137 135-145 [facility] [id number] 00:50:00 Test Item Value Reference Range Interpretation Comments Potassium Lvl (test code = Potassium 3.9 3.5-5.1 Lvl) [facility] [id number] 00:50:00 Test Item Value Reference Range Interpretation Comments Chloride Lvl (test code = Chloride Lvl) 99 95-109 [facility] [employer] [id number] 00:50:00 Test Item Value Reference Range Interpretation Comments CO2 (test code = CO2) 31 24-32 [facility] [id number] 00:50:00 Test Item Value Reference Range Interpretation Comments Calcium Lvl (test code = Calcium Lvl) 9.9 8.5-10.5 [facility] [id number] 00:50:00 Test Item Value Reference Range Interpretation Comments Total Protein (test code = Total 9.0 6.4-8.4 Protein) [facility] [employer] [id number] 00:50:00 Test Item Value Reference Range Interpretation Comments Albumin Lvl (test code = Albumin Lvl) 2.6 3.5-5.0 [facility] [id number] 00:50:00 Test Item Value Reference Range Interpretation Comments ALT (test code = ALT) 23 See_Comment [Auto mated message] The system which ge nerated this result transmit delaney reference range : <=65. The reference range was not used to interpr et this result as kiarra l/abnormal. [facility] [employer] [id number] 00:50:00 Test Item Value Reference Range Interpretation Comments AST (test code = AST) 26 See_Comment [Auto mated message] The system which ge nerated this result transmit delaney reference range : <=37. The reference range was not used to interpr et this result as kiarra l/abnormal. [facility] [employer] [id number] 00:50:00 Test Item Value Reference Range Interpretation Comments Alk Phos (test code = Alk Phos) 181 39-136 [facility]2022-10-19 00:50:00 Test Item Value Reference Range Interpretation Comments Bili Total (test code = Bili Total) 0.4 0.2-1.3 [facility]2022-10-19 00:50:00 Test Item Value Reference Range Interpretation Comments AGAP (test code = AGAP) 10.9 10.0-20.0 [facility]2022-10-19 00:50:00 Test Item Value Reference Range Interpretation Comments B/C Ratio (test code = B/C Ratio) 28 1 6-25 [facility]2022-10-19 00:50:00 Test Item Value Reference Range Interpretation Comments Globulin (test code = Globulin) 6.4 2.7-4.2 [facility]2022-10-19 00:50:00 Test Item Value Reference Range Interpretation Comments A/G Ratio (test code = A/G Ratio) 0.4 1 0.7-1.6 [place] 604762-10-19 00:50:00 Test Item Value Reference Range Interpretation Comments eGFR (test code = eGFR) 105 [facility]YlmozcfDDGRIZRCR3456-98-80 00:50:00 Test Item Value Reference Range Interpretation Comments S Preg (test code = S Negative *NA*(06/20/22 Preg) 7:50 PM) [facility]SvwcwqtKROQMSKLYPZZE3464-51-54 00:50:00 Test Item Value Reference Range Interpretation Comments S Preg (test code = S Negative *NA*(06/20/22 Preg) 7:50 PM) [place] 587612-10-19 00:50:00 Test Item Value Reference Range Interpretation Comments WBC (test code = WBC) 16.9 3.7-10.4 [facility] HospitalRgbpjwrDLCBBEDSOO9469-23-31 00:50:00 Test Item Value Reference Range Interpretation Comments RBC (test code = RBC) 4.52 4.20-5.40 [facility] HospitalCdwzysfPVTZBVXVJU6015-13-98 00:50:00 Test Item Value Reference Range Interpretation Comments Hgb (test code = Hgb) 13.0 12.0-16.0 [place] 587612-10-19 00:50:00 Test Item Value Reference Range Interpretation Comments Hct (test code = Hct) 39.0 36.0-48.0 [facility] HospitalSriqcgaSTJVKFJSKS6055-37-14 00:50:00 Test Item Value Reference Range Interpretation Comments MCV (test code = MCV) 86.1 80.0-98.0 [facility] HospitalAavwqcfUQXAASTTXQ1596-20-83 00:50:00 Test Item Value Reference Range Interpretation Comments MCH (test code = MCH) 28.7 pg 27.0-31.0 [facility] HospitalGzsnbjrTMOJDDKGIJ4648-75-72 00:50:00 Test Item Value Reference Range Interpretation Comments MCHC (test code = MCHC) 33.3 32.0-36.0 [facility] HospitalRdvrmpgMUFFYLCDKX3042-00-12 00:50:00 Test Item Value Reference Range Interpretation Comments RDW (test code = RDW) 12.8 11.5-14.5 [facility] HospitalPmvvswjHNTAWCTWTH8281-98-84 00:50:00 Test Item Value Reference Range Interpretation Comments Platelet (test code = Platelet) 488 133-450 [facility] HospitalNudgonjLQZVIGTYHI8546-65-35 00:50:00 Test Item Value Reference Range Interpretation Comments MPV (test code = MPV) 8.3 7.4-10.4 [facility] HospitalCgwubgrSPWWDZWJJN2898-33-98 00:50:00 Test Item Value Reference Range Interpretation Comments Segs (test code = Segs) 72.4 45.0-75.0 [facility] HospitalCvlsbvcCDRSWCOGQP8709-02-90 00:50:00 Test Item Value Reference Range Interpretation Comments Lymphocytes (test code = Lymphocytes) 19.8 20.0-40.0 [facility] HospitalRduohqiHIPRYRORLE0834-33-15 00:50:00 Test Item Value Reference Range Interpretation Comments Monocytes (test code = Monocytes) 6.4 2.0-12.0 [place] 587612-10-19 00:50:00 Test Item Value Reference Range Interpretation Comments Eosinophils (test code = 0.9 See_Comment [A utomated message] The Eosinophils) system which ge nerated this result tra nsmitted reference range : <=4.0. The reference r kyle was not used to int erpret this result as normal/abnormal . [facility] HospitalHscewrxQMOZTJEAWF5838-74-34 00:50:00 Test Item Value Reference Range Interpretation Comments Basophils (test code = 0.5 See_Comment [Aut omated message] The Basophils) system which ge nerated this result tra nsmitted reference range : <=1.0. The reference r kyle was not used to int erpret this result as normal/abnormal . [facility] HospitalPozkxryRJXFBSDOAM1217-39-42 00:50:00 Test Item Value Reference Range Interpretation Comments Neutrophils # (test code = Neutrophils 12.2 1.5-8.1 #) [facility] HospitalMsfwjiuQZTBBIIYCH8334-66-90 00:50:00 Test Item Value Reference Range Interpretation Comments Lymphocytes # (test code = Lymphocytes 3.4 1.0-5.5 #) [facility] HospitalHiabhqtNUSYMPARJP6482-87-16 00:50:00 Test Item Value Reference Range Interpretation Comments Monocytes # (test code 1.1 See_Comment [Aut omated message] The = Monocytes #) system which generated this result tra nsmitted reference range : <=0.8. The reference r kyle was not used to int erpret this result as normal/abnormal . [facility] HospitalCbanohfCVMZMSPWBG5999-33-17 00:50:00 Test Item Value Reference Range Interpretation Comments Eosinophils # (test code 0.2 See_Comment [A utomated message] The = Eosinophils #) system whic h generated this result tra nsmitted reference range : <=0.5. The reference r kyle was not used to int erpret this result as normal/abnormal . [facility] HospitalGixikzaRFSKFICBQL6587-28-73 00:50:00 Test Item Value Reference Range Interpretation Comments Basophils # (test code 0.1 See_Comment [Aut omated message] The = Basophils #) system which generated this result tra nsmitted reference range : <=0.2. The reference r kyle was not used to int erpret this result as normal/abnormal . [facility] HospitalQrepijuIMXWTNLNBS7886-26-73 00:50:00 Test Item Value Reference Range Interpretation Comments WBC (test code = WBC) 16.9 3.7-10.4 [facility] HospitalRcmrwavJCUFPAYGBA4029-03-88 00:50:00 Test Item Value Reference Range Interpretation Comments RBC (test code = RBC) 4.52 4.20-5.40 [facility] HospitalTuxplfvTCVWGLUFHN3577-95-59 00:50:00 Test Item Value Reference Range Interpretation Comments Hgb (test code = Hgb) 13.0 12.0-16.0 [place] 587612-10-19 00:50:00 Test Item Value Reference Range Interpretation Comments Hct (test code = Hct) 39.0 36.0-48.0 [facility] HospitalUeoynktMHMNBVAZYI3955-09-99 00:50:00 Test Item Value Reference Range Interpretation Comments MCV (test code = MCV) 86.1 80.0-98.0 [facility] HospitalCojldkeEGMFTDPVVM3865-65-02 00:50:00 Test Item Value Reference Range Interpretation Comments MCH (test code = MCH) 28.7 pg 27.0-31.0 [facility] HospitalPmawlbpQZJXWJHKKA9097-99-70 00:50:00 Test Item Value Reference Range Interpretation Comments MCHC (test code = MCHC) 33.3 32.0-36.0 [facility] HospitalCatmxzpXFJRVOFNRI7369-74-49 00:50:00 Test Item Value Reference Range Interpretation Comments RDW (test code = RDW) 12.8 11.5-14.5 [facility] HospitalZqhxtlzEANGUQLAGM2351-53-14 00:50:00 Test Item Value Reference Range Interpretation Comments Platelet (test code = Platelet) 488 133-450 [facility] HospitalLeeqgprMSMUPOLFCM7589-45-30 00:50:00 Test Item Value Reference Range Interpretation Comments MPV (test code = MPV) 8.3 7.4-10.4 [facility] HospitalFxfgnjdFYXEKCGSIK7446-73-99 00:50:00 Test Item Value Reference Range Interpretation Comments PT (test code = PT) 13.5 s 12.0-14.7 [facility] HospitalKhjnvrxVOFEAJJGYO4691-58-85 00:50:00 Test Item Value Reference Range Interpretation Comments INR (test code = INR) 1.04 1 0.85-1.17 [facility] HospitalCruxxeqACXPFNJJGQ3936-86-11 00:50:00 Test Item Value Reference Range Interpretation Comments PTT (test code = PTT) 31.2 s 22.9-35.8 [facility] HospitalZrbgspaEUTAWTZYWV9492-18-11 00:50:00 Test Item Value Reference Range Interpretation Comments Segs (test code = Segs) 72.4 45.0-75.0 [facility] HospitalJfjkxkrQMGNRXRFDQ6654-85-64 00:50:00 Test Item Value Reference Range Interpretation Comments Lymphocytes (test code = Lymphocytes) 19.8 20.0-40.0 [facility] HospitalYnlwvemHUWXGQTAAF4327-91-00 00:50:00 Test Item Value Reference Range Interpretation Comments Monocytes (test code = Monocytes) 6.4 2.0-12.0 [facility] HospitalHqeaczmJQDWCAUISI9450-37-28 00:50:00 Test Item Value Reference Range Interpretation Comments Eosinophils (test code = 0.9 See_Comment [A utomated message] The Eosinophils) system which ge nerated this result tra nsmitted reference range : <=4.0. The reference r kyle was not used to int erpret this result as normal/abnormal . [facility] HospitalIczifcwLZUUUREVSG2963-05-04 00:50:00 Test Item Value Reference Range Interpretation Comments Basophils (test code = 0.5 See_Comment [Aut omated message] The Basophils) system which ge nerated this result tra nsmitted reference range : <=1.0. The reference r kyle was not used to int erpret this result as normal/abnormal . [facility] HospitalRcqbiuzZDWAUOJCXW0961-67-32 00:50:00 Test Item Value Reference Range Interpretation Comments Neutrophils # (test code = Neutrophils 12.2 1.5-8.1 #) [facility] HospitalDtipnhqTSLNWOECCW0414-39-66 00:50:00 Test Item Value Reference Range Interpretation Comments Lymphocytes # (test code = Lymphocytes 3.4 1.0-5.5 #) [facility] HospitalPyvkjdtPQCCRPFTUU3246-29-91 00:50:00 Test Item Value Reference Range Interpretation Comments Monocytes # (test code 1.1 See_Comment [Aut omated message] The = Monocytes #) system which generated this result tra nsmitted reference range : <=0.8. The reference r kyle was not used to int erpret this result as normal/abnormal . [facility] HospitalAzndqvdGHVOLZWQWY8117-51-42 00:50:00 Test Item Value Reference Range Interpretation Comments Eosinophils # (test code 0.2 See_Comment [A utomated message] The = Eosinophils #) system whic h generated this result tra nsmitted reference range : <=0.5. The reference r kyle was not used to int erpret this result as normal/abnormal . [place] 587612-10-19 00:50:00 Test Item Value Reference Range Interpretation Comments Basophils # (test code 0.1 See_Comment [Aut omated message] The = Basophils #) system which generated this result tra nsmitted reference range : <=0.2. The reference r kyle was not used to int erpret this result as normal/abnormal . [facility] [employer] GGSSSVN2836-48-82 00:50:00 Test Item Value Reference Range Interpretation Comments ABO/Rh (test code = ABO/Rh) O POS [facility] [employer] RGFBDYC9731-55-90 00:50:00 Test Item Value Reference Range Interpretation Comments Antibody Scrn (test Negative (06/20/22 code = Antibody Scrn) 7:50 PM) [facility] [employer] [id number] 00:50:00 Test Item Value Reference Range Interpretation Comments ABO/Rh (test code = ABO/Rh) O POS [facility] [employer] [id number] 00:50:00 Test Item Value Reference Range Interpretation Comments Antibody Scrn (test Negative (06/20/22 code = Antibody Scrn) 7:50 PM) [employer] PXWCJ6897-29-21 00:50:00 Test Item Value Reference Range Interpretation Comments Glucose Lvl (test code = Glucose Lvl) 154 70-99 [employer] BSNQV7370-44-51 00:50:00 Test Item Value Reference Range Interpretation Comments BUN (test code = BUN) 18 7-22 [facility] [employer] [id number] 00:50:00 Test Item Value Reference Range Interpretation Comments Creatinine Lvl (test code = Creatinine 0.65 0.50-1.40 Lvl) [employer] XGHEQ8374-10-51 00:50:00 Test Item Value Reference Range Interpretation Comments Sodium Lvl (test code = Sodium Lvl) 137 135-145 [facility]2022-10-19 00:50:00 Test Item Value Reference Range Interpretation Comments Potassium Lvl (test code = Potassium 3.9 3.5-5.1 Lvl) [facility]2022-10-19 00:50:00 Test Item Value Reference Range Interpretation Comments Chloride Lvl (test code = Chloride Lvl) 99 95-109 [employer] OZWGF1770-21-60 00:50:00 Test Item Value Reference Range Interpretation Comments CO2 (test code = CO2) 31 24-32 [place] [id number] 00:50:00 Test Item Value Reference Range Interpretation Comments Calcium Lvl (test code = Calcium Lvl) 9.9 8.5-10.5 [facility] [place]2022-10-19 00:50:00 Test Item Value Reference Range Interpretation Comments Total Protein (test code = Total 9.0 6.4-8.4 Protein) [facility] [address] [id number] 00:50:00 Test Item Value Reference Range Interpretation Comments Albumin Lvl (test code = Albumin Lvl) 2.6 3.5-5.0 [facility] [address] [id number] 00:50:00 Test Item Value Reference Range Interpretation Comments ALT (test code = ALT) 23 See_Comment [Auto mated message] The system which ge nerated this result transmit delaney reference range : <=65. The reference range was not used to interpr et this result as kiarra l/abnormal. [facility] [address] [id number] 00:50:00 Test Item Value Reference Range Interpretation Comments AST (test code = AST) 26 See_Comment [Auto mated message] The system which ge nerated this result transmit delaney reference range : <=37. The reference range was not used to interpr et this result as kiarra l/abnormal. [facility] [address] [id number] 00:50:00 Test Item Value Reference Range Interpretation Comments Alk Phos (test code = Alk Phos) 181 39-136 [facility] [address] [id number] 00:50:00 Test Item Value Reference Range Interpretation Comments Bili Total (test code = Bili Total) 0.4 0.2-1.3 [facility] [address] [id number] 00:50:00 Test Item Value Reference Range Interpretation Comments AGAP (test code = AGAP) 10.9 10.0-20.0 [facility] [address] [id number] 00:50:00 Test Item Value Reference Range Interpretation Comments B/C Ratio (test code = B/C Ratio) 28 1 6-25 [facility] [address] [id number] 00:50:00 Test Item Value Reference Range Interpretation Comments Globulin (test code = Globulin) 6.4 2.7-4.2 [facility] [address] [id number] 00:50:00 Test Item Value Reference Range Interpretation Comments A/G Ratio (test code = A/G Ratio) 0.4 1 0.7-1.6 [facility] [address] [id number] 00:50:00 Test Item Value Reference Range Interpretation Comments eGFR (test code = eGFR) 105 [facility]FsjbkgkXHMXBPYNT8211-48-62 00:50:00 Test Item Value Reference Range Interpretation Comments S Preg (test code = S Negative *NA*(06/20/22 Preg) 7:50 PM) [facility]uvnZQWRGWBZHQPNK0359-71-37 00:50:00 Test Item Value Reference Range Interpretation Comments S Preg (test code = S Negative *NA*(06/20/22 Preg) 7:50 PM) [facility] CenterConzbcyKVXVCEIGSY0546-29-77 00:50:00 Test Item Value Reference Range Interpretation Comments WBC (test code = WBC) 16.9 3.7-10.4 [facility]minfypEYOPYVWDWS5597-04-38 00:50:00 Test Item Value Reference Range Interpretation Comments RBC (test code = RBC) 4.52 4.20-5.40 [facility] CenterRldvlfwGGCVJQKGDT3247-13-38 00:50:00 Test Item Value Reference Range Interpretation Comments Hgb (test code = Hgb) 13.0 12.0-16.0 [facility] HospitalUjbtlcqRNUBEXWFVE2951-22-91 00:50:00 Test Item Value Reference Range Interpretation Comments Hct (test code = Hct) 39.0 36.0-48.0 [facility] CenterZvumzhfNEXEDSRGWI0548-55-56 00:50:00 Test Item Value Reference Range Interpretation Comments MCV (test code = MCV) 86.1 80.0-98.0 [facility] CenterIdywuhrOKJRIDXSDG1377-45-27 00:50:00 Test Item Value Reference Range Interpretation Comments MCH (test code = MCH) 28.7 pg 27.0-31.0 [facility] CenterGinefnlKRMSPAZVIB8435-53-24 00:50:00 Test Item Value Reference Range Interpretation Comments MCHC (test code = MCHC) 33.3 32.0-36.0 [facility] CenterCxugudzFGJWQDZILX2703-75-06 00:50:00 Test Item Value Reference Range Interpretation Comments RDW (test code = RDW) 12.8 11.5-14.5 [facility] CenterMwfvnbvYTPTJGSGJX2951-12-28 00:50:00 Test Item Value Reference Range Interpretation Comments Platelet (test code = Platelet) 488 133-450 [facility] CenterWbcxgvmSYHMTHTLQP0460-16-00 00:50:00 Test Item Value Reference Range Interpretation Comments MPV (test code = MPV) 8.3 7.4-10.4 [facility] HospitalSeavdmmLIZNXRUYKJ5082-05-70 00:50:00 Test Item Value Reference Range Interpretation Comments Segs (test code = Segs) 72.4 45.0-75.0 [facility] HospitalYujzzviPEQJSUBFRD3756-78-43 00:50:00 Test Item Value Reference Range Interpretation Comments Lymphocytes (test code = Lymphocytes) 19.8 20.0-40.0 [facility] HospitalVizcpybFJKBPBKDKV6831-36-37 00:50:00 Test Item Value Reference Range Interpretation Comments Monocytes (test code = Monocytes) 6.4 2.0-12.0 [facility] HospitalPhdbhftHUVJADIVRB4455-08-86 00:50:00 Test Item Value Reference Range Interpretation Comments Eosinophils (test code = 0.9 See_Comment [A utomated message] The Eosinophils) system which ge nerated this result tra nsmitted reference range : <=4.0. The reference r kyle was not used to int erpret this result as normal/abnormal . [facility] HospitalZicyiuoIBIKDNVRAU8206-26-38 00:50:00 Test Item Value Reference Range Interpretation Comments Basophils (test code = 0.5 See_Comment [Aut omated message] The Basophils) system which ge nerated this result tra nsmitted reference range : <=1.0. The reference r kyle was not used to int erpret this result as normal/abnormal . [facility] HospitalYigmqaoHMCQWSCGSI1224-54-53 00:50:00 Test Item Value Reference Range Interpretation Comments Neutrophils # (test code = Neutrophils 12.2 1.5-8.1 #) [facility] HospitalRsvyedlWNHZTWEIJG0101-67-92 00:50:00 Test Item Value Reference Range Interpretation Comments Lymphocytes # (test code = Lymphocytes 3.4 1.0-5.5 #) [facility] HospitalWezwazcPYKWDFFCBT7644-99-43 00:50:00 Test Item Value Reference Range Interpretation Comments Monocytes # (test code 1.1 See_Comment [Aut omated message] The = Monocytes #) system which generated this result tra nsmitted reference range : <=0.8. The reference r kyle was not used to int erpret this result as normal/abnormal . [facility] HospitalUukwfflNCGEOQHJGO3638-41-19 00:50:00 Test Item Value Reference Range Interpretation Comments Eosinophils # (test code 0.2 See_Comment [A utomated message] The = Eosinophils #) system whic h generated this result tra nsmitted reference range : <=0.5. The reference r kyle was not used to int erpret this result as normal/abnormal . [facility] HospitalEsvsbhkZIEILHGGJH3568-07-05 00:50:00 Test Item Value Reference Range Interpretation Comments Basophils # (test code 0.1 See_Comment [Aut omated message] The = Basophils #) system which generated this result tra nsmitted reference range : <=0.2. The reference r kyle was not used to int erpret this result as normal/abnormal . [facility] HospitalChimgzzATYXDSFRYD8963-73-42 00:50:00 Test Item Value Reference Range Interpretation Comments WBC (test code = WBC) 16.9 3.7-10.4 [facility] HospitalNurhtnvXDALOCOBIA5170-36-98 00:50:00 Test Item Value Reference Range Interpretation Comments RBC (test code = RBC) 4.52 4.20-5.40 [facility] HospitalWdoszquLYCAAGZAPF4298-50-08 00:50:00 Test Item Value Reference Range Interpretation Comments Hgb (test code = Hgb) 13.0 12.0-16.0 [facility] HospitalKvfffyfOCVRUYLDWW7150-96-03 00:50:00 Test Item Value Reference Range Interpretation Comments Hct (test code = Hct) 39.0 36.0-48.0 [facility] HospitalMisstdvNETIXZNVQP9989-60-96 00:50:00 Test Item Value Reference Range Interpretation Comments MCV (test code = MCV) 86.1 80.0-98.0 [facility] HospitalAohjoksLLRTJXLTMW5621-58-52 00:50:00 Test Item Value Reference Range Interpretation Comments MCH (test code = MCH) 28.7 pg 27.0-31.0 [facility] HospitalSksqpsnVARFKYHWKY6776-92-82 00:50:00 Test Item Value Reference Range Interpretation Comments MCHC (test code = MCHC) 33.3 32.0-36.0 [facility] HospitalImeoquiEBTZBDJEWX8226-92-20 00:50:00 Test Item Value Reference Range Interpretation Comments RDW (test code = RDW) 12.8 11.5-14.5 [facility] HospitalUqlfkewZRTJIWUOFW6655-12-10 00:50:00 Test Item Value Reference Range Interpretation Comments Platelet (test code = Platelet) 488 133-450 [facility] HospitalEcmslvrVRMAZOFFPF0418-00-35 00:50:00 Test Item Value Reference Range Interpretation Comments MPV (test code = MPV) 8.3 7.4-10.4 [facility] HospitalOpvadjvEQFRZKJKCN3699-93-30 00:50:00 Test Item Value Reference Range Interpretation Comments PT (test code = PT) 13.5 s 12.0-14.7 [facility] HospitalLoejeilXTOMLHBPAB4349-62-79 00:50:00 Test Item Value Reference Range Interpretation Comments INR (test code = INR) 1.04 1 0.85-1.17 [facility] HospitalHhnzzzgHXLJAWCHYC6896-75-84 00:50:00 Test Item Value Reference Range Interpretation Comments PTT (test code = PTT) 31.2 s 22.9-35.8 [facility] HospitalAarzqkhHHZQOLWXMZ9479-95-54 00:50:00 Test Item Value Reference Range Interpretation Comments Segs (test code = Segs) 72.4 45.0-75.0 [facility] HospitalLcvnshbUFHJNNCNXL1726-22-37 00:50:00 Test Item Value Reference Range Interpretation Comments Lymphocytes (test code = Lymphocytes) 19.8 20.0-40.0 [facility] HospitalQymcbkiOVAOWGSFHL2657-78-27 00:50:00 Test Item Value Reference Range Interpretation Comments Monocytes (test code = Monocytes) 6.4 2.0-12.0 [facility] HospitalKqcmwhyRILPNPXIOC0032-75-44 00:50:00 Test Item Value Reference Range Interpretation Comments Eosinophils (test code = 0.9 See_Comment [A utomated message] The Eosinophils) system which ge nerated this result tra nsmitted reference range : <=4.0. The reference r kyle was not used to int erpret this result as normal/abnormal . [facility] HospitalKemlzqyHOCRZAKXTB0445-44-70 00:50:00 Test Item Value Reference Range Interpretation Comments Basophils (test code = 0.5 See_Comment [Aut omated message] The Basophils) system which ge nerated this result tra nsmitted reference range : <=1.0. The reference r kyle was not used to int erpret this result as normal/abnormal . [facility] HospitalIqnymjzOYTQERFRLA0938-38-22 00:50:00 Test Item Value Reference Range Interpretation Comments Neutrophils # (test code = Neutrophils 12.2 1.5-8.1 #) [facility] HospitalEwpiemwRJRISTZQPI4053-72-24 00:50:00 Test Item Value Reference Range Interpretation Comments Lymphocytes # (test code = Lymphocytes 3.4 1.0-5.5 #) [facility] YrszfmmLRLLSHTVIX5431-96-52 00:50:00 Test Item Value Reference Range Interpretation Comments Monocytes # (test code 1.1 See_Comment [Aut omated message] The = Monocytes #) system which generated this result tra nsmitted reference range : <=0.8. The reference r kyle was not used to int erpret this result as normal/abnormal . [facility] NtohfogBXADFDPMGG3498-73-85 00:50:00 Test Item Value Reference Range Interpretation Comments Eosinophils # (test code 0.2 See_Comment [A utomated message] The = Eosinophils #) system whic h generated this result tra nsmitted reference range : <=0.5. The reference r kyle was not used to int erpret this result as normal/abnormal . [facility] ClmatbtQPCPSMLFZM1139-48-84 00:50:00 Test Item Value Reference Range Interpretation Comments Basophils # (test code 0.1 See_Comment [Aut omated message] The = Basophils #) system which generated this result tra nsmitted reference range : <=0.2. The reference r kyle was not used to int erpret this result as normal/abnormal . [employer] QFEWKKR9353-71-56 00:50:00 Test Item Value Reference Range Interpretation Comments ABO/Rh (test code = ABO/Rh) O POS [employer] [id number] 00:50:00 Test Item Value Reference Range Interpretation Comments Antibody Scrn (test Negative (06/20/22 code = Antibody Scrn) 7:50 PM) [employer] [id number] 00:50:00 Test Item Value Reference Range Interpretation Comments ABO/Rh (test code = ABO/Rh) O POS [employer] [id number] 00:50:00 Test Item Value Reference Range Interpretation Comments Antibody Scrn (test Negative (06/20/22 code = Antibody Scrn) 7:50 PM) [employer] ITSZW7458-04-12 00:50:00 Test Item Value Reference Range Interpretation Comments Glucose Lvl (test code = Glucose Lvl) 154 70-99 [facility] [address] [id number] 00:50:00 Test Item Value Reference Range Interpretation Comments BUN (test code = BUN) 18 7-22 [place] 604762-10-19 00:50:00 Test Item Value Reference Range Interpretation Comments Creatinine Lvl (test code = Creatinine 0.65 0.50-1.40 Lvl) [facility]2022-10-19 00:50:00 Test Item Value Reference Range Interpretation Comments Sodium Lvl (test code = Sodium Lvl) 137 135-145 [place] 604762-10-19 00:50:00 Test Item Value Reference Range Interpretation Comments Potassium Lvl (test code = Potassium 3.9 3.5-5.1 Lvl) [place] 604762-10-19 00:50:00 Test Item Value Reference Range Interpretation Comments Chloride Lvl (test code = Chloride Lvl) 99 95-109 [place] 604762-10-19 00:50:00 Test Item Value Reference Range Interpretation Comments CO2 (test code = CO2) 31 24-32 [place] 604762-10-19 00:50:00 Test Item Value Reference Range Interpretation Comments Calcium Lvl (test code = Calcium Lvl) 9.9 8.5-10.5 [place] 604762-10-19 00:50:00 Test Item Value Reference Range Interpretation Comments Total Protein (test code = Total 9.0 6.4-8.4 Protein) [facility]2022-10-19 00:50:00 Test Item Value Reference Range Interpretation Comments Albumin Lvl (test code = Albumin Lvl) 2.6 3.5-5.0 [place] 604762-10-19 00:50:00 Test Item Value Reference Range Interpretation Comments ALT (test code = ALT) 23 See_Comment [Auto mated message] The system which ge nerated this result transmit delaney reference range : <=65. The reference range was not used to interpr et this result as kiarra l/abnormal. [place] 604762-10-19 00:50:00 Test Item Value Reference Range Interpretation Comments AST (test code = AST) 26 See_Comment [Auto mated message] The system which ge nerated this result transmit delaney reference range : <=37. The reference range was not used to interpr et this result as kiarra l/abnormal. [facility] MXJWS2557-16-34 00:50:00 Test Item Value Reference Range Interpretation Comments Alk Phos (test code = Alk Phos) 181 39-136 [facility] LHBJG5943-71-17 00:50:00 Test Item Value Reference Range Interpretation Comments Bili Total (test code = Bili Total) 0.4 0.2-1.3 [facility] FVIQS4797-14-24 00:50:00 Test Item Value Reference Range Interpretation Comments AGAP (test code = AGAP) 10.9 10.0-20.0 [facility] XUTJN4401-11-60 00:50:00 Test Item Value Reference Range Interpretation Comments B/C Ratio (test code = B/C Ratio) 28 1 6-25 [facility] VKRLI3581-93-09 00:50:00 Test Item Value Reference Range Interpretation Comments Globulin (test code = Globulin) 6.4 2.7-4.2 [facility] [id number] 00:50:00 Test Item Value Reference Range Interpretation Comments A/G Ratio (test code = A/G Ratio) 0.4 1 0.7-1.6 [facility] [id number] 00:50:00 Test Item Value Reference Range Interpretation Comments eGFR (test code = eGFR) 105 [facility]VdvjmopHJNWUSPAN1346-42-49 00:50:00 Test Item Value Reference Range Interpretation Comments S Preg (test code = S Negative *NA*(06/20/22 Preg) 7:50 PM) [place] 18740022-10-19 00:50:00 Test Item Value Reference Range Interpretation Comments S Preg (test code = S Negative *NA*(06/20/22 Preg) 7:50 PM) [facility] CenterCuvgburNQXAPMFYAJ0571-65-49 00:50:00 Test Item Value Reference Range Interpretation Comments WBC (test code = WBC) 16.9 3.7-10.4 [facility] HospitalSuzliksDROCCRESFB6751-42-28 00:50:00 Test Item Value Reference Range Interpretation Comments RBC (test code = RBC) 4.52 4.20-5.40 [facility] HospitalObcufukWIVANYPWHU4962-51-30 00:50:00 Test Item Value Reference Range Interpretation Comments Hgb (test code = Hgb) 13.0 12.0-16.0 [place] 587612-10-19 00:50:00 Test Item Value Reference Range Interpretation Comments Hct (test code = Hct) 39.0 36.0-48.0 [facility] HospitalWpogxdvPZEXHRHSVG4017-37-36 00:50:00 Test Item Value Reference Range Interpretation Comments MCV (test code = MCV) 86.1 80.0-98.0 [facility] HospitalTwivhadQYRNHONHXK1802-51-34 00:50:00 Test Item Value Reference Range Interpretation Comments MCH (test code = MCH) 28.7 pg 27.0-31.0 [facility] HospitalYjnjwsxEUWYJWSZOX7115-30-01 00:50:00 Test Item Value Reference Range Interpretation Comments MCHC (test code = MCHC) 33.3 32.0-36.0 [facility] HospitalUhqshcuGXPVQALFWX8157-44-72 00:50:00 Test Item Value Reference Range Interpretation Comments RDW (test code = RDW) 12.8 11.5-14.5 [facility] HospitalYtlhjdrDNSWAKXNCH4094-38-05 00:50:00 Test Item Value Reference Range Interpretation Comments Platelet (test code = Platelet) 488 133-450 [facility] HospitalXjqcbntSSKNKFOZAO2104-84-18 00:50:00 Test Item Value Reference Range Interpretation Comments MPV (test code = MPV) 8.3 7.4-10.4 [facility] HospitalKqrdaxlDHLTAXDQZE9884-52-09 00:50:00 Test Item Value Reference Range Interpretation Comments Segs (test code = Segs) 72.4 45.0-75.0 [facility] HospitalCykvuzbFNDACYTLVH9427-26-31 00:50:00 Test Item Value Reference Range Interpretation Comments Lymphocytes (test code = Lymphocytes) 19.8 20.0-40.0 [facility] HospitalUwakndiJGKQLEDXLX6939-21-70 00:50:00 Test Item Value Reference Range Interpretation Comments Monocytes (test code = Monocytes) 6.4 2.0-12.0 [facility] HospitalWpcueqkVRQSWCZLXM0038-21-42 00:50:00 Test Item Value Reference Range Interpretation Comments Eosinophils (test code = 0.9 See_Comment [A utomated message] The Eosinophils) system which ge nerated this result tra nsmitted reference range : <=4.0. The reference r kyle was not used to int erpret this result as normal/abnormal . [facility] HospitalSxifslxOQHLAPFYWW8281-80-95 00:50:00 Test Item Value Reference Range Interpretation Comments Basophils (test code = 0.5 See_Comment [Aut omated message] The Basophils) system which ge nerated this result tra nsmitted reference range : <=1.0. The reference r kyle was not used to int erpret this result as normal/abnormal . [facility] HospitalYtuqkidAXAHPOTIYE6377-06-54 00:50:00 Test Item Value Reference Range Interpretation Comments Neutrophils # (test code = Neutrophils 12.2 1.5-8.1 #) [facility] HospitalLdmvhjtUSKBGIRWWD7761-97-60 00:50:00 Test Item Value Reference Range Interpretation Comments Lymphocytes # (test code = Lymphocytes 3.4 1.0-5.5 #) [facility] HospitalClvpjaaMFRLHOFRNK6305-63-74 00:50:00 Test Item Value Reference Range Interpretation Comments Monocytes # (test code 1.1 See_Comment [Aut omated message] The = Monocytes #) system which generated this result tra nsmitted reference range : <=0.8. The reference r kyle was not used to int erpret this result as normal/abnormal . [facility] HospitalTrywnptFLXDRBGUOF8723-47-99 00:50:00 Test Item Value Reference Range Interpretation Comments Eosinophils # (test code 0.2 See_Comment [A utomated message] The = Eosinophils #) system whic h generated this result tra nsmitted reference range : <=0.5. The reference r kyle was not used to int erpret this result as normal/abnormal . [facility] HospitalTpyzoudESDNXPRWDJ8643-89-22 00:50:00 Test Item Value Reference Range Interpretation Comments Basophils # (test code 0.1 See_Comment [Aut omated message] The = Basophils #) system which generated this result tra nsmitted reference range : <=0.2. The reference r kyle was not used to int erpret this result as normal/abnormal . [facility] HospitalUdndrteFHVIOIROAP4954-00-38 00:50:00 Test Item Value Reference Range Interpretation Comments WBC (test code = WBC) 16.9 3.7-10.4 [facility] HospitalDpughhkBQXBFQDYYC5671-54-65 00:50:00 Test Item Value Reference Range Interpretation Comments RBC (test code = RBC) 4.52 4.20-5.40 [facility] HospitalQxvwydmOZLNXLOFTG3843-03-49 00:50:00 Test Item Value Reference Range Interpretation Comments Hgb (test code = Hgb) 13.0 12.0-16.0 [facility]QbvochgFQGXAHGGSD0303-11-92 00:50:00 Test Item Value Reference Range Interpretation Comments Hct (test code = Hct) 39.0 36.0-48.0 [facility] CenterByhniuzBCQBWHFBOT2817-51-61 00:50:00 Test Item Value Reference Range Interpretation Comments MCV (test code = MCV) 86.1 80.0-98.0 [facility] CenterGbweyvqQATKOYYDYM1803-25-90 00:50:00 Test Item Value Reference Range Interpretation Comments MCH (test code = MCH) 28.7 pg 27.0-31.0 [facility] CenterZqyuyivEVWONSZAIU4845-28-57 00:50:00 Test Item Value Reference Range Interpretation Comments MCHC (test code = MCHC) 33.3 32.0-36.0 [facility] CenterHnmczvzOUMBAIHMDM3786-91-90 00:50:00 Test Item Value Reference Range Interpretation Comments RDW (test code = RDW) 12.8 11.5-14.5 [facility] HospitalRngwqvaFPQBWEXLBC2676-19-46 00:50:00 Test Item Value Reference Range Interpretation Comments Platelet (test code = Platelet) 488 133-450 [facility] HospitalEnzkjbsJNGQAKBXIU6792-82-35 00:50:00 Test Item Value Reference Range Interpretation Comments MPV (test code = MPV) 8.3 7.4-10.4 [facility] HospitalJxyrdhoHAUOLIBWKB5263-11-65 00:50:00 Test Item Value Reference Range Interpretation Comments PT (test code = PT) 13.5 s 12.0-14.7 [facility] HospitalLudoxsyKFIEJOKGGY0363-02-12 00:50:00 Test Item Value Reference Range Interpretation Comments INR (test code = INR) 1.04 1 0.85-1.17 [facility] CenterYfmpnboJHXXFHYMJO0871-06-58 00:50:00 Test Item Value Reference Range Interpretation Comments PTT (test code = PTT) 31.2 s 22.9-35.8 [facility] CenterDpliynpFYQWBCLHTD6352-67-14 00:50:00 Test Item Value Reference Range Interpretation Comments Segs (test code = Segs) 72.4 45.0-75.0 [facility] CenterHuwknlpBLDDVLRPVI1260-96-62 00:50:00 Test Item Value Reference Range Interpretation Comments Lymphocytes (test code = Lymphocytes) 19.8 20.0-40.0 [place] 587612-10-19 00:50:00 Test Item Value Reference Range Interpretation Comments Monocytes (test code = Monocytes) 6.4 2.0-12.0 [facility] HospitalQfzggfpPMPSSDRRSQ9340-81-52 00:50:00 Test Item Value Reference Range Interpretation Comments Eosinophils (test code = 0.9 See_Comment [A utomated message] The Eosinophils) system which ge nerated this result tra nsmitted reference range : <=4.0. The reference r kyle was not used to int erpret this result as normal/abnormal . [place] [address]-10-19 00:50:00 Test Item Value Reference Range Interpretation Comments Basophils (test code = 0.5 See_Comment [Aut omated message] The Basophils) system which ge nerated this result tra nsmitted reference range : <=1.0. The reference r kyle was not used to int erpret this result as normal/abnormal . [facility] HospitalIupbqfmHIHFHAANFB0984-47-04 00:50:00 Test Item Value Reference Range Interpretation Comments Neutrophils # (test code = Neutrophils 12.2 1.5-8.1 #) [facility] HospitalEtbsycaCAFCCCSSGK5072-08-56 00:50:00 Test Item Value Reference Range Interpretation Comments Lymphocytes # (test code = Lymphocytes 3.4 1.0-5.5 #) [facility] HospitalUycqgtxTUVBZIDOSK7684-37-02 00:50:00 Test Item Value Reference Range Interpretation Comments Monocytes # (test code 1.1 See_Comment [Aut omated message] The = Monocytes #) system which generated this result tra nsmitted reference range : <=0.8. The reference r kyle was not used to int erpret this result as normal/abnormal . [place] [address]-10-19 00:50:00 Test Item Value Reference Range Interpretation Comments Eosinophils # (test code 0.2 See_Comment [A utomated message] The = Eosinophils #) system whic h generated this result tra nsmitted reference range : <=0.5. The reference r kyle was not used to int erpret this result as normal/abnormal . [place] 587612-10-19 00:50:00 Test Item Value Reference Range Interpretation Comments Basophils # (test code 0.1 See_Comment [Aut omated message] The = Basophils #) system which generated this result tra nsmitted reference range : <=0.2. The reference r kyle was not used to int erpret this result as normal/abnormal . [employer] [id number] 00:50:00 Test Item Value Reference Range Interpretation Comments ABO/Rh (test code = ABO/Rh) O POS [facility] [employer] [id number] 00:50:00 Test Item Value Reference Range Interpretation Comments Antibody Scrn (test Negative (06/20/22 code = Antibody Scrn) 7:50 PM) [facility] [employer] [id number] 00:50:00 Test Item Value Reference Range Interpretation Comments ABO/Rh (test code = ABO/Rh) O POS [employer] [id number] 00:50:00 Test Item Value Reference Range Interpretation Comments Antibody Scrn (test Negative (06/20/22 code = Antibody Scrn) 7:50 PM) [employer] [id number] 00:50:00 Test Item Value Reference Range Interpretation Comments Glucose Lvl (test code = Glucose Lvl) 154 70-99 [facility] [employer] [id number] 00:50:00 Test Item Value Reference Range Interpretation Comments BUN (test code = BUN) 18 7-22 [employer] [id number] 00:50:00 Test Item Value Reference Range Interpretation Comments Creatinine Lvl (test code = Creatinine 0.65 0.50-1.40 Lvl) [employer] [id number] 00:50:00 Test Item Value Reference Range Interpretation Comments Sodium Lvl (test code = Sodium Lvl) 137 135-145 [facility]2022-10-19 00:50:00 Test Item Value Reference Range Interpretation Comments Potassium Lvl (test code = Potassium 3.9 3.5-5.1 Lvl) [facility]2022-10-19 00:50:00 Test Item Value Reference Range Interpretation Comments Chloride Lvl (test code = Chloride Lvl) 99 95-109 [facility]2022-10-19 00:50:00 Test Item Value Reference Range Interpretation Comments CO2 (test code = CO2) 31 24-32 [facility] [employer] [id number] 00:50:00 Test Item Value Reference Range Interpretation Comments Calcium Lvl (test code = Calcium Lvl) 9.9 8.5-10.5 [facility] [employer] [id number] 00:50:00 Test Item Value Reference Range Interpretation Comments Total Protein (test code = Total 9.0 6.4-8.4 Protein) [facility] [id number] 00:50:00 Test Item Value Reference Range Interpretation Comments Albumin Lvl (test code = Albumin Lvl) 2.6 3.5-5.0 [facility] [employer] [id number] 00:50:00 Test Item Value Reference Range Interpretation Comments ALT (test code = ALT) 23 See_Comment [Auto mated message] The system which ge nerated this result transmit delaney reference range : <=65. The reference range was not used to interpr et this result as kiarra l/abnormal. [facility] [employer] [id number] 00:50:00 Test Item Value Reference Range Interpretation Comments AST (test code = AST) 26 See_Comment [Auto mated message] The system which ge nerated this result transmit delaney reference range : <=37. The reference range was not used to interpr et this result as kiarra l/abnormal. [facility] [employer] [id number] 00:50:00 Test Item Value Reference Range Interpretation Comments Alk Phos (test code = Alk Phos) 181 39-136 [facility] [employer] [id number] 00:50:00 Test Item Value Reference Range Interpretation Comments Bili Total (test code = Bili Total) 0.4 0.2-1.3 [facility] [employer] [id number] 00:50:00 Test Item Value Reference Range Interpretation Comments AGAP (test code = AGAP) 10.9 10.0-20.0 [facility] [employer] [id number] 00:50:00 Test Item Value Reference Range Interpretation Comments B/C Ratio (test code = B/C Ratio) 28 1 6-25 [facility] [employer] [id number] 00:50:00 Test Item Value Reference Range Interpretation Comments Globulin (test code = Globulin) 6.4 2.7-4.2 [facility] [employer] [id number] 00:50:00 Test Item Value Reference Range Interpretation Comments A/G Ratio (test code = A/G Ratio) 0.4 1 0.7-1.6 [facility]CHE[facility] [id number] 00:50:00 Test Item Value Reference Range Interpretation Comments eGFR (test code = eGFR) 105 [facility] CenterLhwghsoKECQYCQYQ3341-95-38 00:50:00 Test Item Value Reference Range Interpretation Comments S Preg (test code = S Negative *NA*(06/20/22 Preg) 7:50 PM) [facility] CenterNawhxakIOCOWPLSCWGJN5812-44-31 00:50:00 Test Item Value Reference Range Interpretation Comments S Preg (test code = S Negative *NA*(06/20/22 Preg) 7:50 PM) [facility] CenterDnrxibdFMAIFOQZIF7126-28-42 00:50:00 Test Item Value Reference Range Interpretation Comments WBC (test code = WBC) 16.9 3.7-10.4 [facility] CenterRigynvyRFVJJRJXHX2442-08-19 00:50:00 Test Item Value Reference Range Interpretation Comments RBC (test code = RBC) 4.52 4.20-5.40 [facility] CenterAzyukqnGREBOATOGB9739-84-90 00:50:00 Test Item Value Reference Range Interpretation Comments Hgb (test code = Hgb) 13.0 12.0-16.0 [facility] CenterBfllnnyAWFVOYYMEC2976-31-96 00:50:00 Test Item Value Reference Range Interpretation Comments Hct (test code = Hct) 39.0 36.0-48.0 [facility] CenterOlpkkatBXABEBLOHQ0040-61-30 00:50:00 Test Item Value Reference Range Interpretation Comments MCV (test code = MCV) 86.1 80.0-98.0 [facility] CenterRcbarybURHIVNTTMC4295-43-66 00:50:00 Test Item Value Reference Range Interpretation Comments MCH (test code = MCH) 28.7 pg 27.0-31.0 [facility] CenterPykobrdCFOWTPWOMQ2009-08-65 00:50:00 Test Item Value Reference Range Interpretation Comments MCHC (test code = MCHC) 33.3 32.0-36.0 [facility] CenterEncopyrRTLNOIQXXM2304-56-32 00:50:00 Test Item Value Reference Range Interpretation Comments RDW (test code = RDW) 12.8 11.5-14.5 [facility] CenterNgtyhkpCJWWADHUCJ4662-50-64 00:50:00 Test Item Value Reference Range Interpretation Comments Platelet (test code = Platelet) 488 133-450 [facility] CenterVlnahouAQMONTBBPG0854-93-93 00:50:00 Test Item Value Reference Range Interpretation Comments MPV (test code = MPV) 8.3 7.4-10.4 [facility] HospitalXhwjbbzAXVZTJPMRD5332-47-08 00:50:00 Test Item Value Reference Range Interpretation Comments Segs (test code = Segs) 72.4 45.0-75.0 [facility] HospitalAzvlsudSLVFCPZBSI8302-65-05 00:50:00 Test Item Value Reference Range Interpretation Comments Lymphocytes (test code = Lymphocytes) 19.8 20.0-40.0 [facility] CenterNddliqwUSWUUQPRCA4676-53-35 00:50:00 Test Item Value Reference Range Interpretation Comments Monocytes (test code = Monocytes) 6.4 2.0-12.0 [facility] HospitalIjxaqovNHZAVAFEPN7961-06-64 00:50:00 Test Item Value Reference Range Interpretation Comments Eosinophils (test code = 0.9 See_Comment [A utomated message] The Eosinophils) system which nerated this result tra nsmitted reference range : <=4.0. The reference r kyle was not used to int erpret this result as normal/abnormal . [facility] CenterZylhmpiJFRDRMXPRQ3315-82-40 00:50:00 Test Item Value Reference Range Interpretation Comments Basophils (test code = 0.5 See_Comment [Aut omated message] The Basophils) system which ge nerated this result tra nsmitted reference range : <=1.0. The reference r kyle was not used to int erpret this result as normal/abnormal . [facility] CenterEoafvsrOVBIREEXYR0136-13-37 00:50:00 Test Item Value Reference Range Interpretation Comments Neutrophils # (test code = Neutrophils 12.2 1.5-8.1 #) [facility] CenterMkjmndkZBZXNLBCMU9393-80-10 00:50:00 Test Item Value Reference Range Interpretation Comments Lymphocytes # (test code = Lymphocytes 3.4 1.0-5.5 #) [facility] [employer] [id number] 00:50:00 Test Item Value Reference Range Interpretation Comments ABO/Rh (test code = ABO/Rh) O POS [facility] [employer] [id number] 00:50:00 Test Item Value Reference Range Interpretation Comments Antibody Scrn (test Negative (06/20/22 code = Antibody Scrn) 7:50 PM) [facility] [employer] [id number] 00:50:00 Test Item Value Reference Range Interpretation Comments ABO/Rh (test code = ABO/Rh) O POS [facility] [employer] [id number] 00:50:00 Test Item Value Reference Range Interpretation Comments Antibody Scrn (test Negative (06/20/22 code = Antibody Scrn) 7:50 PM) [facility] [employer] [id number] 00:50:00 Test Item Value Reference Range Interpretation Comments Glucose Lvl (test code = Glucose Lvl) 154 70-99 [facility] [employer] [id number] 00:50:00 Test Item Value Reference Range Interpretation Comments BUN (test code = BUN) 18 7-22 [facility] [employer]2022-10-19 00:50:00 Test Item Value Reference Range Interpretation Comments Creatinine Lvl (test code = Creatinine 0.65 0.50-1.40 Lvl) [facility] [employer]2022-10-19 00:50:00 Test Item Value Reference Range Interpretation Comments Sodium Lvl (test code = Sodium Lvl) 137 135-145 [facility] [employer] [id number] 00:50:00 Test Item Value Reference Range Interpretation Comments Potassium Lvl (test code = Potassium 3.9 3.5-5.1 Lvl) [facility] [employer] [id number] 00:50:00 Test Item Value Reference Range Interpretation Comments Chloride Lvl (test code = Chloride Lvl) 99 95-109 [facility] [employer] [id number] 00:50:00 Test Item Value Reference Range Interpretation Comments CO2 (test code = CO2) 31 24-32 [facility] [employer] [id number] 00:50:00 Test Item Value Reference Range Interpretation Comments Calcium Lvl (test code = Calcium Lvl) 9.9 8.5-10.5 [facility] [employer] [id number] 00:50:00 Test Item Value Reference Range Interpretation Comments Total Protein (test code = Total 9.0 6.4-8.4 Protein) [facility] [employer] [id number] 00:50:00 Test Item Value Reference Range Interpretation Comments Albumin Lvl (test code = Albumin Lvl) 2.6 3.5-5.0 [facility] [employer]2022-10-19 00:50:00 Test Item Value Reference Range Interpretation Comments ALT (test code = ALT) 23 See_Comment [Auto mated message] The system which ge nerated this result transmit delaney reference range : <=65. The reference range was not used to interpr et this result as kiarra l/abnormal. [facility] [employer] [id number] 00:50:00 Test Item Value Reference Range Interpretation Comments AST (test code = AST) 26 See_Comment [Auto mated message] The system which ge nerated this result transmit delaney reference range : <=37. The reference range was not used to interpr et this result as kiarra l/abnormal. [facility] [employer] [id number] 00:50:00 Test Item Value Reference Range Interpretation Comments Alk Phos (test code = Alk Phos) 181 39-136 [facility] [place]2022-10-19 00:50:00 Test Item Value Reference Range Interpretation Comments Bili Total (test code = Bili Total) 0.4 0.2-1.3 [facility] [employer]2022-10-19 00:50:00 Test Item Value Reference Range Interpretation Comments AGAP (test code = AGAP) 10.9 10.0-20.0 [facility] [place]2022-10-19 00:50:00 Test Item Value Reference Range Interpretation Comments B/C Ratio (test code = B/C Ratio) 28 1 6-25 [facility] [employer] [id number] 00:50:00 Test Item Value Reference Range Interpretation Comments Globulin (test code = Globulin) 6.4 2.7-4.2 [facility] [place]2022-10-19 00:50:00 Test Item Value Reference Range Interpretation Comments A/G Ratio (test code = A/G Ratio) 0.4 1 0.7-1.6 [facility] [place]2022-10-19 00:50:00 Test Item Value Reference Range Interpretation Comments eGFR (test code = eGFR) 105 [facility] [id number] 00:50:00 Test Item Value Reference Range Interpretation Comments S Preg (test code = S Negative *NA*(06/20/22 Preg) 7:50 PM) [facility] CenterGgepcatAWIMARDJTRLTW3088-52-24 00:50:00 Test Item Value Reference Range Interpretation Comments S Preg (test code = S Negative *NA*(06/20/22 Preg) 7:50 PM) [facility] HospitalBluveoxBGQYDYVGJP5790-23-64 00:50:00 Test Item Value Reference Range Interpretation Comments WBC (test code = WBC) 16.9 3.7-10.4 [facility] HospitalWpndzolQNEAHQITGR7924-92-62 00:50:00 Test Item Value Reference Range Interpretation Comments RBC (test code = RBC) 4.52 4.20-5.40 [facility] HospitalKvkyhgvVIIHDFOKJE2766-63-47 00:50:00 Test Item Value Reference Range Interpretation Comments Hgb (test code = Hgb) 13.0 12.0-16.0 [facility] HospitalGgkehzcCQRXXWRKUX6365-88-35 00:50:00 Test Item Value Reference Range Interpretation Comments Hct (test code = Hct) 39.0 36.0-48.0 [facility] HospitalKyodcplFUSYCMGWKJ3763-29-97 00:50:00 Test Item Value Reference Range Interpretation Comments MCV (test code = MCV) 86.1 80.0-98.0 [facility] HospitalVdbzqdcTLYDBUYUAL5795-82-88 00:50:00 Test Item Value Reference Range Interpretation Comments MCH (test code = MCH) 28.7 pg 27.0-31.0 [facility] HospitalYipwvyeTFXWGWSSJQ1998-44-05 00:50:00 Test Item Value Reference Range Interpretation Comments MCHC (test code = MCHC) 33.3 32.0-36.0 [facility] HospitalYnqhrnuGNNOZXURTA9916-84-58 00:50:00 Test Item Value Reference Range Interpretation Comments RDW (test code = RDW) 12.8 11.5-14.5 [facility] HospitalFoyknilGTXPEHJQUF1457-38-43 00:50:00 Test Item Value Reference Range Interpretation Comments Platelet (test code = Platelet) 488 133-450 [facility] HospitalZkwrqbwYIJUDXNXJB6056-64-04 00:50:00 Test Item Value Reference Range Interpretation Comments MPV (test code = MPV) 8.3 7.4-10.4 [facility] HospitalQgzcgfdHWKINBGFAM2652-78-92 00:50:00 Test Item Value Reference Range Interpretation Comments Segs (test code = Segs) 72.4 45.0-75.0 [facility] HospitalBilluqrUSBFZBFOFM0317-12-82 00:50:00 Test Item Value Reference Range Interpretation Comments Lymphocytes (test code = Lymphocytes) 19.8 20.0-40.0 [facility] HospitalOiggvtyTRWYEEIZNB1259-16-20 00:50:00 Test Item Value Reference Range Interpretation Comments Monocytes (test code = Monocytes) 6.4 2.0-12.0 [facility] HospitalDtuwexnVUAKEXDSGO0349-77-52 00:50:00 Test Item Value Reference Range Interpretation Comments Eosinophils (test code = 0.9 See_Comment [A utomated message] The Eosinophils) system which ge nerated this result tra nsmitted reference range : <=4.0. The reference r kyle was not used to int erpret this result as normal/abnormal . [facility] HospitalXrjayjgXKVZYUMBFA2128-57-74 00:50:00 Test Item Value Reference Range Interpretation Comments Basophils (test code = 0.5 See_Comment [Aut omated message] The Basophils) system which ge nerated this result tra nsmitted reference range : <=1.0. The reference r kyle was not used to int erpret this result as normal/abnormal . [facility] HospitalJjgqrxvGOXPXNDKSZ9015-13-74 00:50:00 Test Item Value Reference Range Interpretation Comments Neutrophils # (test code = Neutrophils 12.2 1.5-8.1 #) [facility] HospitalOjphxftXYJDAIDGCR3031-59-44 00:50:00 Test Item Value Reference Range Interpretation Comments Lymphocytes # (test code = Lymphocytes 3.4 1.0-5.5 #) [facility] HospitalRnnchmePUPKFYLSBU3160-13-07 00:50:00 Test Item Value Reference Range Interpretation Comments Monocytes # (test code 1.1 See_Comment [Aut omated message] The = Monocytes #) system which generated this result tra nsmitted reference range : <=0.8. The reference r kyle was not used to int erpret this result as normal/abnormal . [facility] HospitalYaukhyiQRPMDFSMSI3555-71-91 00:50:00 Test Item Value Reference Range Interpretation Comments Eosinophils # (test code 0.2 See_Comment [A utomated message] The = Eosinophils #) system whic h generated this result tra nsmitted reference range : <=0.5. The reference r kyle was not used to int erpret this result as normal/abnormal . [facility] HospitalYnzhaojIBBDOHCYUI4796-51-83 00:50:00 Test Item Value Reference Range Interpretation Comments Basophils # (test code 0.1 See_Comment [Aut omated message] The = Basophils #) system which generated this result tra nsmitted reference range : <=0.2. The reference r kyle was not used to int erpret this result as normal/abnormal . [facility] HospitalAeldetkYUKSGFBBYH6544-50-23 00:50:00 Test Item Value Reference Range Interpretation Comments WBC (test code = WBC) 16.9 3.7-10.4 [facility] HospitalYdcyfxwITXIPKQTOZ5758-98-88 00:50:00 Test Item Value Reference Range Interpretation Comments RBC (test code = RBC) 4.52 4.20-5.40 [facility] HospitalVfrioolFGXLOOTKAS3717-87-81 00:50:00 Test Item Value Reference Range Interpretation Comments Hgb (test code = Hgb) 13.0 12.0-16.0 [facility] HospitalNlpwzvjIDGGXYRPMZ7280-52-63 00:50:00 Test Item Value Reference Range Interpretation Comments Hct (test code = Hct) 39.0 36.0-48.0 [place] 587612-10-19 00:50:00 Test Item Value Reference Range Interpretation Comments MCV (test code = MCV) 86.1 80.0-98.0 [facility] HospitalMawpivmULXHWFNNZJ5864-14-42 00:50:00 Test Item Value Reference Range Interpretation Comments MCH (test code = MCH) 28.7 pg 27.0-31.0 [facility] HospitalStavwivJDZQAZXGFM5108-12-87 00:50:00 Test Item Value Reference Range Interpretation Comments MCHC (test code = MCHC) 33.3 32.0-36.0 [facility] HospitalTvmaeovPCJYAUGGWY3637-07-21 00:50:00 Test Item Value Reference Range Interpretation Comments RDW (test code = RDW) 12.8 11.5-14.5 [facility] HospitalGsqyeskDSFVMUAUNE0281-22-99 00:50:00 Test Item Value Reference Range Interpretation Comments Platelet (test code = Platelet) 488 133-450 [facility] HospitalVmtoafuNNBMWWQMTU1057-55-87 00:50:00 Test Item Value Reference Range Interpretation Comments MPV (test code = MPV) 8.3 7.4-10.4 [facility] HospitalRcmryuhJDRRIDIYTP0683-96-85 00:50:00 Test Item Value Reference Range Interpretation Comments PT (test code = PT) 13.5 s 12.0-14.7 [facility] HospitalUhxpfloROTVWXCQJR6780-68-69 00:50:00 Test Item Value Reference Range Interpretation Comments INR (test code = INR) 1.04 1 0.85-1.17 [facility] HospitalIzcdrmrPENHUFUQDF8587-01-32 00:50:00 Test Item Value Reference Range Interpretation Comments PTT (test code = PTT) 31.2 s 22.9-35.8 [facility] HospitalJieqvlxKIKYFILACN2041-75-04 00:50:00 Test Item Value Reference Range Interpretation Comments Segs (test code = Segs) 72.4 45.0-75.0 [facility] HospitalCisbokkSHPWHYKUBS6628-52-64 00:50:00 Test Item Value Reference Range Interpretation Comments Lymphocytes (test code = Lymphocytes) 19.8 20.0-40.0 [facility] HospitalEarhmbnZLYQZOWGLK3336-58-73 00:50:00 Test Item Value Reference Range Interpretation Comments Monocytes (test code = Monocytes) 6.4 2.0-12.0 [facility] HospitalAkmfmwgQADFYXIARP7074-15-51 00:50:00 Test Item Value Reference Range Interpretation Comments Eosinophils (test code = 0.9 See_Comment [A utomated message] The Eosinophils) system which ge nerated this result tra nsmitted reference range : <=4.0. The reference r kyle was not used to int erpret this result as normal/abnormal . [facility] HospitalIwtgxnlZZBEKPITUB3880-91-40 00:50:00 Test Item Value Reference Range Interpretation Comments Basophils (test code = 0.5 See_Comment [Aut omated message] The Basophils) system which ge nerated this result tra nsmitted reference range : <=1.0. The reference r kyle was not used to int erpret this result as normal/abnormal . [facility] HospitalJhlfftcRPJNDQIYHL6212-49-87 00:50:00 Test Item Value Reference Range Interpretation Comments Neutrophils # (test code = Neutrophils 12.2 1.5-8.1 #) [facility] HospitalRfdcwecFAIMEUJLSA7206-10-36 00:50:00 Test Item Value Reference Range Interpretation Comments Lymphocytes # (test code = Lymphocytes 3.4 1.0-5.5 #) [facility] HospitalWuvccchHGHVMCTUMO4972-44-79 00:50:00 Test Item Value Reference Range Interpretation Comments Monocytes # (test code 1.1 See_Comment [Aut omated message] The = Monocytes #) system which generated this result tra nsmitted reference range : <=0.8. The reference r kyle was not used to int erpret this result as normal/abnormal . [facility] HospitalFzkwlyiFUTYGWTVTA7616-75-20 00:50:00 Test Item Value Reference Range Interpretation Comments Eosinophils # (test code 0.2 See_Comment [A utomated message] The = Eosinophils #) system whic h generated this result tra nsmitted reference range : <=0.5. The reference r kyle was not used to int erpret this result as normal/abnormal . [facility] HospitalAswbydfHFACCXXEWY9792-42-10 00:50:00 Test Item Value Reference Range Interpretation Comments Basophils # (test code 0.1 See_Comment [Aut omated message] The = Basophils #) system which generated this result tra nsmitted reference range : <=0.2. The reference r kyle was not used to int erpret this result as normal/abnormal . [facility]
[2022-10-22 11:39] LABS: Albumin 3.8 g/dL (3.4-5.0); Bilirubin Total 0.8 mg/dL (0.2-1.0); Potassium 3.4 mmol/L (3.5-5.1); Protein, Total 8.5 g/dL (6.4-8.2)
--- NOTE | 2022-10-22 12:16 | RAD REPORT ---
EXAM DESCRIPTION: CT - Abdomen Pelvis W Contrast - 10/22/2022 11:57 am CLINICAL HISTORY: Abdominal pain/constipation COMPARISON: 2021 TECHNIQUE: Computed axial tomography of the abdomen pelvis was obtained. 100 cc Isovue-300 was admin istered intravenously. Oral contrast was not requested which limits evaluation of bowel and appendix All CT scans are performed using dose optimization technique as appropriate and may include automated exposure control or mA/KV adjustment according to patient size. FINDINGS: Liver, pancreas, adrenals and kidneys are unremarkable Spleen contains areas of fibrosis and capsular retraction secondary to old infarcts. An acute infarct ion is not seen. No evidence of diverticulitis. Normal appendix. No adnexal mass. Osteomyelitis is surrounding cement which has been placed into the T12 vertebral body without signifi cant change. Old compression fracture with retropulsion of bone resulting in an approximately 45% shante rowing of the thecal sac. This is without significant change. Small umbilical hernia Mild amount stool within the colon IMPRESSION: Moderate amount stool within the colon. Oldl splenic infarcts.
--- NOTE | 2022-10-22 12:31 | ER ---
Nurse's Notes [facility] Name: Sunita Donohue Age: 56 yrs Sex: Female : 1965 Arrival Date: 10/22/2022 Time: 10:47 Bed 4 Private MD: Diagnosis: Nausea with vomiting, unspecified;Constipation Presentation: 10/22 10:50 Chief complaint: EMS states: N/V x 1 week. Coronavirus screen: Client presents with at hb least one sign or symptom that may indicate coronavirus-19. Standard/surgical mask placed on the client. Provider contacted for isolation considerations. Ebola Screen: No symptoms or risks identified at this time. Initial Sepsis Screen: Does the patient meet any 2 criteria? No. Patient's initial sepsis screen is negative. Does the patient have a suspected source of infection? No. Patient's initial sepsis screen is negative. Risk Assessment: Do you want to hurt yourself or someone else? Patient reports no desire to harm self or others. Onset of symptoms was October 15, 2022. 10:50 Method Of Arrival: EMS: [facility] hb 10:50 Acuity: RIKI 3 hb 10:51 Care prior to arrival: Medication(s) given: Normal saline infusion, zofran 4 mg, IV hb initiated. 22 GA, in the right antecubital area, Glucose check: 137. Triage Assessment: 10:52 General: Appears in no apparent distress. Behavior is calm, cooperative. Pain: Denies hb pain. EENT: No signs and/or symptoms were reported regarding the EENT system. Neuro: Level of Consciousness is awake, alert, obeys commands, Oriented to person, place, situation. Cardiovascular: Patient's skin is warm and dry. Respiratory: Respiratory effort is even, unlabored, Respiratory pattern is regular, symmetrical. GI: Reports nausea, vomiting. : No signs and/or symptoms were reported regarding the genitourinary system. Derm: Skin is pink, warm \T\ dry. Musculoskeletal: No signs and/or symptoms reported regarding the musculoskeletal system. 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 - Social history:: Smoking status: . Screenin:53 [facility] ED Fall Risk Assessment (Adult) Score/Fall Risk Level 0 - 2 = Low Risk hb Oriented to surroundings, Maintained a safe environment, Educated pt \T\ family on fall prevention, incl call for assistance when getting out of bed. Abuse screen: Denies threats or abuse. Denies injuries from another. Nutritional screening: No deficits noted. Tuberculosis screening: No symptoms or risk factors identified. Assessment: 10:53 General: See triage assessment. hb 12:16 Reassessment: Patient appears in no apparent distress at this time. No changes from hb previously documented assessment. Patient and/or family updated on plan of care and expected duration. Pain level reassessed. 12:28 Reassessment: Water provided for PO challenge. hb Vital Signs: 10:50 BP 123 / 98; Pulse 86; Resp 16; Temp 98.1; Pulse Ox 100% on R/A; Weight 65.77 kg; hb Height 5 ft. 4 in. (162.56 cm); Pain 0/10; 12:16 BP 158 / 90; Pulse 87; Resp 15; Pulse Ox 97% on R/A; hb 10:50 Body Mass Index 24.89 (65.77 kg, 162.56 cm) hb ED Course: 10:47 Patient arrived in ED. hb 10:50 [facility]elle[facility] 7 10:50 Toan Esparza MD is Attending Physician. 7 10:52 Triage completed. hb 10:53 Arm band placed on. hb 10:56 Genevieve Ferguson, RN is Primary Nurse. hb 11:00 Patient has correct armband on for positive identification. hb 11:07 Inserted saline lock: 20 gauge in left antecubital area, using aseptic technique. 6 13:28 No provider procedures requiring assistance completed. IV discontinued, intact, hb bleeding controlled, No redness/swelling at site. Administered Medications: 11:18 Drug: NS 0.9% 1000 ml Route: IV; Rate: 1 bolus; Site: right antecubital; ll1 11:19 Drug: Pepcid (famotidine) 20 mg Route: IVP; Site: right antecubital; ll1 12:44 Follow up: Response: No adverse reaction ll1 Medication: 10:53 VIS not applicable for this client. hb Outcome: 12:31 Discharge ordered by MD. biggs 13:28 Discharged to home ambulatory. hb 13:28 Condition: stable 13:28 Discharge instructions given to patient, Instructed on discharge instructions, follow up and referral plans. medication usage, Demonstrated understanding of instructions, follow-up care, medications, Prescriptions given X 2. 13:28 Patient left the ED. hb Signatures: Genevieve Ferguson RN RN Sarah Hahn Lynsay, RN RN ll1 Elaine Tellez, HUMAN PROJECTILE HUMAN PROJECTILE Yaneth Bateman6 Corrections: (The following items were deleted from the chart) 10:52 10:50 Care prior to arrival: Medication(s) given: Normal saline infusion, zofran 4 mg, hb IV initiated. 22 GA, in the right antecubital area, Glucose check: 137 hb 13:28 13:06 intiated a transfer with P[facility] from the [facility] at the request eb of the patient/ eb 13: 13:11 per Porsche she will have to check with her bed coordinator and will call us back ebeb
--- NOTE | 2022-10-22 12:31 | EDPHYS ---
Physician Documentation [facility] Name: Sunita Donohue Age: 56 yrs Sex: Female : 1965 Arrival Date: 10/22/2022 Time: 10:47 Bed 4 Private MD: ED Physician Toan Esparza HPI: 10/22 10:47 This 56 yrs old Female presents to ER via Unassigned with complaints of Nausea/Vomiting.jh7 10:47 The patient presents to the emergency department with nausea, vomiting. Onset: The jh7 symptoms/episode began/occurred 1 week(s) ago. Associated signs and symptoms: Pertinent positives: constipation, Pertinent negatives: abdominal pain, belching, diarrhea, dysuria, fever. Patient reports nausea and vomiting for 1 week worsening this morning. She also reports no bowel movement for 1 week. Denies any abdominal pain. EMS reports Zofran 4 mg IV was given in route. History of hypertension, GERD, and diabetes. Denies any allergies. Reports Dr. Lee is her PCP. 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 - Social history:: Smoking status: . ROS: 10:47 Constitutional: Negative for fever, chills, and weight loss, Eyes: Negative for injury, jh7 pain, redness, and discharge, Neck: Negative for injury, pain, and swelling, Cardiovascular: Negative for chest pain, palpitations, and edema, Respiratory: Negative for shortness of breath, cough, wheezing, and pleuritic chest pain, Back: Negative for injury and pain, MS/Extremity: Negative for injury and deformity, Skin: Negative for injury, rash, and discoloration, Neuro: Negative for headache, weakness, numbness, tingling, and seizure. 10:47 Abdomen/GI: Positive for nausea and vomiting, constipation, Negative for abdominal pain, diarrhea. 10:47 All other systems are negative. Exam: 10:47 Constitutional: This is a well developed, well nourished patient who is awake, alert, jh7 and in no acute distress. Head/Face: Normocephalic, atraumatic. Eyes: Pupils equal round and reactive to light, extra-ocular motions intact. Lids and lashes normal. Conjunctiva and sclera are non-icteric and not injected. Cornea within normal limits. Periorbital areas with no swelling, redness, or edema. Neck: Trachea midline, no thyromegaly or masses palpated, and no cervical lymphadenopathy. Supple, full range of motion without nuchal rigidity, or vertebral point tenderness. No Meningismus. Cardiovascular: Regular rate and rhythm with a normal S1 and S2. No gallops, murmurs, or rubs. Normal PMI, no JVD. No pulse deficits. Respiratory: Lungs have equal breath sounds bilaterally, clear to auscultation and percussion. No rales, rhonchi or wheezes noted. No increased work of breathing, no retractions or nasal flaring. Abdomen/GI: Soft, non-tender, with normal bowel sounds. No distension or tympany. No guarding or rebound. No evidence of tenderness throughout. Back: No spinal tenderness. No costovertebral tenderness. Full range of motion. Skin: Warm, dry with normal turgor. Normal color with no rashes, no lesions, and no evidence of cellulitis. MS/ Extremity: Pulses equal, no cyanosis. Neurovascular intact. Full, normal range of motion. Neuro: Awake and alert, GCS 15, oriented to person, place, time, and situation. Motor strength 5/5 in all extremities. Sensory grossly intact. Normal gait. 11:07 ECG was reviewed by the Attending Physician. [facility] Vital Signs: 10:50 BP 123 / 98; Pulse 86; Resp 16; Temp 98.1; Pulse Ox 100% on R/A; Weight 65.77 kg; hb Height 5 ft. 4 in. (162.56 cm); Pain 0/10; 12:16 BP 158 / 90; Pulse 87; Resp 15; Pulse Ox 97% on R/A; hb 10:50 Body Mass Index 24.89 (65.77 kg, 162.56 cm) MDM: 10:50 Patient medically screened. [facility] 12:40 Differential diagnosis: gastritis, cholecystitis, pancreatitis, viral gastroenteritis, [facility] Small bowel obstruction. Data reviewed: vital signs, nurses notes, lab test result(s), EKG, radiologic studies, CT scan. Consideration of Admission/Observation Escalation of care including admission/observation considered. Patient significantly improved after nausea and fluids were given, negative CT scan, patient passed p.o. challenge. I considered the following discharge prescriptions or medication management in the emergency department Medications were administered in the Emergency Department. See MAR. Independent interpretation of the following test(s) in the Emergency Department EKG: See my EKG interpretation above. Care significantly affected by the following chronic conditions: Diabetes, Hypertension, Congestive Heart Failure. Counseling: I had a detailed discussion with the patient and/or guardian regarding: the historical points, exam findings, and any diagnostic results supporting the discharge/admit diagnosis, to return to the emergency department if symptoms worsen or persist or if there are any questions or concerns that arise at home. 12:40 ED course: The patient reports that she usually has only 1 bowel movement a week and [facility] that this is normal for her. Agreed to start stool softeners.. 10/22 10:50 Order name: CBC with Diff [facility] 10/22 10:50 Order name: CMP [facility] 10/22 10:50 Order name: Lipase [facility] 10/22 10:50 Order name: Urine Microscopic Only [facility] 10/22 10:54 Order name: Troponin High Sensitivity [facility] 10/22 11:26 Order name: CBC with Automated Diff; Complete Time: 11:31 [facility] 10/22 10:50 Order name: CT Abd/Pelvis - IV Contrast Only [facility] 10/22 11:39 Order name: Comprehensive Metabolic Panel; Complete Time: 11:44 [facility] 10/22 11:39 Order name: Lipase; Complete Time: 11:44 [facility] 10/22 12:08 Order name: Troponin High Sensitivity; Complete Time: 12:23 [facility] 10/22 12:16 Order name: CT; Complete Time: 12:23 [facility] 10/22 13:09 Order name: Glucose, Ancillary Testing; Complete Time: 14:10 [facility] 10/22 10:50 Order name: IV Saline Lock; Complete Time: 11:07 [facility] 10/22 10:50 Order name: Labs collected and sent; Complete Time: 11:18 [facility] 10/22 10:54 Order name: EKG - Nurse/Tech; Complete Time: 11:07 7 10/22 12:28 Order name: PO challenge; Complete Time: 12:28 hb 10/22 12:30 Order name: Recheck Blood Sugar; Complete Time: 12:59 7 EC:07 Rate is 83 beats/min. Rhythm is regular. QRS [place] is Normal. HI interval is normal at 7 138 msec. QRS interval is normal at 82 msec. QT interval is prolonged at 410 msec. No Q waves. T waves are Normal. No ST changes noted. Clinical impression: Normal sinus rhythm with prolonged QT. Administered Medications: 11:18 Drug: NS 0.9% 1000 ml Route: IV; Rate: 1 bolus; Site: right antecubital; 1 11:19 Drug: Pepcid (famotidine) 20 mg Route: IVP; Site: right antecubital; 1 12:44 Follow up: Response: No adverse reaction [facility] Disposition: 13:39 Co-signature as Attending Physician, Toan Esparza MD I agree with the assessment and kdr plan of care. Disposition Summary: 10/22/22 12:31 Discharge Ordered Location: Home [facility] Problem: an ongoing problem [facility] Symptoms: have improved [facility] Condition: Stable [facility] Diagnosis - Nausea with vomiting, unspecified [facility] - Constipation [facility] Followup: [facility] - With: Private Physician - When: 2 - 3 days - Reason: Recheck today's complaints Discharge Instructions: - Discharge Summary Sheet [facility] - Nausea and Vomiting, Adult [facility] - Chronic Constipation [facility] Forms: - Medication Reconciliation Form [facility] - Thank You Letter [facility] Prescriptions: - Colace 100 mg Oral Tablet - take 1 tablet by ORAL route every 12 hours; 14 tablet; Refills: 0, Product [facility] Selection Permitted - ondansetron 4 mg Oral - take 4 milligrams by SUBLINGUAL route every 8 hours; 15 tablet; Refills: 0, jh7 Product Selection Permitted Signatures: Dispatcher [employer] Toan Chavarria MD MD kdr Baxter, Heather RN RN Nikkie Centeno RN RN [facility] Elaine Tellez, PALEONTOLOGY TEACHER PALEONTOLOGY TEACHER [facility]
[2022-10-22 14:03] VITALS: BP 158/90; O2SAT 97
[2022-10-22 14:05] VITALS: TEMP 98.1
--- NOTE | 2022-10-23 12:37 | EKG ---
Test Date: 2022-10-22 Test Time: 11:07:29 Teaching Dietitian: WANDY MEASUREMENT RESULTS: Intervals: Rate: 83 LA: 138 QRSD: 82 QT: 410 QTc: 481 Cowley: P: 23 LA: 138 QRS: 39 T: 43 INTERPRETIVE STATEMENTS: Normal sinus rhythm Prolonged QT Abnormal ECG Compared to ECG 08/19/2022 12:35:21 ST (T wave) deviation no longer present Electronically Signed On 10-23-22 12:35:41 USABILITY ARCHITECT by Trell Aquino
== END 2022-10-22 13:28 | disposition home or self-care (01) ==
LOC: ER 10:46
DX: R11.2 Nausea with vomiting, unspecified (principal); K59.00 Constipation, unspecified; E11.9 Type 2 diabetes mellitus without complications; I10 Essential (primary) hypertension
CPT/HCPCS: 93005; 85025; 36415; 82947; 84484; 83690; 80053; 74177; 96374; 99284; Q9967; J7030

== ENCOUNTER 2023-03-12 09:37 | Inpatient (IN) | payer OTHER ==
[2023-03-12 10:11] LABS: Absolute Lymphocytes (CBC) 4.4 K/uL (0.7-4.9); Hematocrit 32.9 % (36.0-45.0); Lymphocytes % 43.4 % (15.3-44.8); MCV 82.6 fL (80-100); MPV 8.4 fL (7.6-11.3); RBC Red Blood Cell Count 3.98 M/uL (3.86-4.86)
--- NOTE | 2023-03-12 10:30 | RAD REPORT ---
EXAM DESCRIPTION: CT - Ct Stroke Brain Wo Cont - 03/12/2023 10:12 am CLINICAL HISTORY: STROKE ALERT COMPARISON: Ct Stroke Brain Wo Cont dated 11/02/2021; HEAD BRAIN W O CONTRAST dated 07/04/2013; Neck An chery dated 03/12/2023; Head angio dated 03/12/2023 TECHNIQUE: Noncontrast head CT images were obtained without IV contrast. Multiplanar reformats were generated and reviewed. All CT scans are performed using dose optimization technique as appropriate and may include automated exposure control or mA/KV adjustment according to patient size. FINDINGS: No intracranial hemorrhage, mass, or edema. Midline structures are unremarkable. Normal ventricular caliber for age. Stable focus of hypoattenuation in the left basal ganglia region, may relate to a small remote infarc t. Alfredo-white matter differentiation is preserved, without evidence of acute infarct. No abnormal ext ra-axial fluid collections. Mastoid air cells and visualized portions of the paranasal sinuses are clear. No acute bony findings. IMPRESSION: No evidence of an acute intracranial process. The findings were communicated to Graham Mccartney on 03/12/2023 at 10:24 hours.
[2023-03-12 10:31] LABS: Magnesium 2.3 mg/dL (1.6-2.4)
--- NOTE | 2023-03-12 10:34 | RAD REPORT ---
EXAM DESCRIPTION: CT - Head angio - 03/12/2023 10:12 am CLINICAL HISTORY: WEAKNESS COMPARISON: Ct Stroke Brain Wo Cont dated 03/12/2023; Ct Stroke Brain Wo Cont dated 11/02/2021; Neck An chery dated 03/12/2023 TECHNIQUE: Axial CT angiography images of the head was performed with multiplanar and maximum intens ity projection reconstructions. Images performed following intravenous administration of 100mL Isovue 370. All CT scans are performed using dose optimization technique as appropriate and may include automated exposure control or mA/KV adjustment according to patient size. FINDINGS: Asymmetric at least moderate burden of mixed density atherosclerotic plaque along the left carotid artery Peter segment. Dense atherosclerotic calcified plaque with up to severe narrowing carolyn ng the left cavernous ICA, and moderate similar changes on the right with mild stenosis. No evidence of large vessel occlusion. There is a diminutive appearance of the left proximal P1, however the dist al vessel opacifies normally. No evidence of aneurysm or dissection flap is detected. No other flow-l imiting stenosis or vascular malformation identified. Antegrade flow is seen in the vertebral arteries. Vertebral arteries are patent, with a dominant righ t vertebral artery. Right PICA is not visualized, and may be diminutive. The visualized dural venous sinuses are grossly patent. IMPRESSION: Atherosclerotic calcifications with moderate to severe stenosis along the left Ratliff th rough cavernous ICA. No evidence of large vessel occlusion or other flow-limiting stenosis. The findings were communicated to Graham Mccartney on 03/12/2023 at 10:24 hours.
[2023-03-12 10:36] LABS: Protime INR 0.95
--- NOTE | 2023-03-12 10:43 | RAD REPORT ---
EXAM DESCRIPTION: CT - Neck Angio - 03/12/2023 10:12 am CLINICAL HISTORY: LUE weak COMPARISON: No comparisons TECHNIQUE: Axial CT angiography images of the head was performed with multiplanar and maximum intens ity projection reconstructions. Images performed following intravenous administration of 100mL Isovue 370. All CT scans are performed using dose optimization technique as appropriate and may include automated exposure control or mA/KV adjustment according to patient size. Quantification of carotid stenosis, if any, is performed according to NASCET criteria. FINDINGS: A left aortic arch is identified with normal three vessel configuration of the great vesse ls. No significant flow abnormality is seen of the common carotid bilaterally. No significant stenosis is identified involving the cervical segments of both internal carotid arteri es. Normal flow is seen within both vertebral arteries. Variant origin of the left vertebral artery, jr sing as the third vessel from the arch. IMPRESSION: No significant flow abnormality of the neck vessels is identified. CAROTID STENOSIS REFERENCE USING NASCET CRITERIA: % ICA stenosis = (1 - narrowest ICA diameter/diameter of distal cervical ICA) x 100. Mild - <50% stenosis. Moderate - 50-69% stenosis. Severe - 70-94% stenosis. Near occlusion - 95-99% stenosis. Occluded - 100% stenosis.
--- NOTE | 2023-03-12 11:11 | EDPHYS ---
Physician Documentation [facility] Name: Sunita Donohue Age: 57 yrs Sex: Female : 1965 Arrival Date: 03/12/2023 Time: 09:37 Bed 3 Private MD: ED Physician rGaham Mccartney HPI: 03/12 10:08 This 57 yrs old Female presents to ER via Ambulatory with complaints of S/S of Possible rn Stroke. 10:08 The patient's problem is reported as weakness, in the left upper extremity. Onset: The rn symptoms/episode began/occurred yesterday. The symptoms are alleviated by nothing. The symptoms are aggravated by standing, walking. Associated signs and symptoms: Pertinent positives: dizziness, weakness, Pertinent negatives: abdominal pain, chest pain, confusion, diaphoresis, headache. Severity of symptoms: At their worst the symptoms were moderate in the emergency department the symptoms have improved. The patient has not experienced similar symptoms in the past. The patient has not recently seen a physician. Pt reports yesterday around 1400 sister noticed "seizure activity", patient without hx of seizures. No head injury. Around same time patient began to notice dizziness, "walking wobbly", and left arm weakness and tingling. 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 NO fever. No chest pain.. Historical: - Allergies: 09:58 No Known Allergies; ld1 - PMHx: 09:58 CHF; Diabetes - IDDM; Diabetes - NIDDM; Gastroparesis; Hypertension; ld1 - PSHx: 09:58 Ligation of fallopian tube; ld1 - Immunization history:: Adult Immunizations up to date, Client reports receiving the 2nd dose of the Covid vaccine. - Social history:: Smoking status: Patient reports the use of cigarette tobacco products, denies chronic smoking, but will smoke occasionally, Patient/guardian denies using alcohol. - Family history:: not pertinent. - Hospitalizations: : No recent hospitalization is reported. ROS: 10:08 Constitutional: Negative for fever, chills, and weight loss, Eyes: Negative for injury, rn pain, redness, and discharge, Neck: Negative for injury, pain, and swelling, Cardiovascular: Negative for chest pain, palpitations, and edema, Respiratory: Negative for shortness of breath, cough, wheezing, and pleuritic chest pain, Abdomen/GI: Negative for abdominal pain, nausea, vomiting, diarrhea, and constipation, Back: Negative for injury and pain, MS/Extremity: Negative for injury and deformity, Skin: Negative for injury, rash, and discoloration, Neuro: + LUE weakness and numbness Exam: 10:00 ECG was reviewed by the Attending Physician. rn 10:08 Constitutional: This is a well developed, well nourished patient who is awake, alert, rn and in no acute distress. Head/Face: Normocephalic, atraumatic. Neck: Trachea midline, no masses palpated. No Meningismus. Cardiovascular: Regular rate and rhythm. No pulse deficits. Respiratory: No increased work of breathing, no retractions or nasal flaring. Abdomen/GI: soft, non-tender Skin: Warm, dry MS/ Extremity: Pulses equal, no cyanosis. Neuro: Awake and alert, GCS 15, oriented to person, place, time, and situation. Cranial nerves II-XII grossly intact. + drift with LUE. Decreased sensation to touch LUE. Gait not tested. Vital Signs: 09:56 BP 125 / 66; Pulse 77; Resp 13; Temp 98.1(O); Pulse Ox 95% on R/A; Weight 88.5 kg; ld1 Height 5 ft. 3 in. ; Pain 0/10; 10:53 Pulse 74; Resp 18; Pulse Ox 97% on R/A; ld1 10:54 BP 119 / 52; ld1 09:56 Body Mass Index 34.56 (88.50 kg, 160.02 cm) ld1 09:56 Pain Scale: Adult ld1 NIH Stroke Scale Scores: 09:59 NIHSS Score: 2 ld1 MDM: 09:42 Patient medically screened. rn 11:09 Differential diagnosis: CVA, TIA, metabolic disorder. Data reviewed: vital signs, rn nurses notes, lab test result(s), EKG, radiologic studies, CT scan, plain films, and as a result, I will admit patient. Consideration of Admission/Observation Patient was admitted/placed on observation. Escalation of care including admission/observation considered. Management of patient was discussed with the following: Hospitalist: . Counseling: I had a detailed discussion with the patient and/or guardian regarding: the historical points, exam findings, and any diagnostic results supporting the discharge/admit diagnosis, lab results, radiology results, the need for further work-up and treatment in the hospital. Response to treatment: There is no appreciated change of the patient's symptoms at this time, and as a result, I will admit patient. 03/12 09:55 Order name: Basic Metabolic Panel; Complete Time: 11:00 rn 03/12 09:55 Order name: CBC with Diff; Complete Time: 11:00 rn 03/12 09:55 Order name: High Sensitivity Troponin; Complete Time: :00 rn 03/12 09:55 Order name: Magnesium; Complete Time: 11: rn 03/12 09:55 Order name: Protime (+inr); Complete Time: :00 rn 03/12 09:55 Order name: Ptt, Activated; Complete Time: : rn 03/12 11:24 Order name: CREATININE WHOLE BLOOD; Complete Time: 11:46 [facility] 03/12 09:55 Order name: CT Stroke Brain w/o Contrast; Complete Time: 11:00 rn 03/12 09:55 Order name: Stroke CXR 1 View; Complete Time: 12:18 rn 03/12 09:55 Order name: Head Angio CT; Complete Time: 11:00 rn 03/12 09:55 Order name: Neck Angio CT; Complete Time: :00 rn 03/12 16:02 Order name: MRI EDNE 03/12 09:55 Order name: EKG; Complete Time: 09:55 rn 03/12 13:53 Order name: 60g Consistent Carbohydrate (ADA 1800/2000) EDNE 03/12 09:55 Order name: Accucheck; Complete Time: 09:56 rn 03/12 09:55 Order name: Cardiac monitoring; Complete Time: 09:55 rn 03/12 09:55 Order name: EKG - Nurse/Tech; Complete Time: 09:55 rn 03/12 09:55 Order name: IV Saline Lock; Complete Time: 09:55 rn 03/12 09:55 Order name: Labs collected and sent; Complete Time: 09:55 rn 03/12 09:55 Order name: NPO; Complete Time: 09:55 rn 03/12 09:55 Order name: O2 Per Protocol; Complete Time: 09:56 rn 03/12 09:55 Order name: O2 Sat Monitoring; Complete Time: 09:56 rn 03/12 09:55 Order name: Stroke Swallow Screen; Complete Time: 09:56 rn EC:00 Rate is 75 beats/min. Rhythm is regular. QRS [place] is Normal. CA interval is normal. QRS rn interval is normal. QT interval is normal. No Q waves. T waves are Normal. Clinical impression: Normal ECG. Interpreted by me. Reviewed by me. Administered Medications: 11:35 Drug: Aspirin PO 325 mg Route: PO; ld1 11:35 Drug: foLIC Acid IVPB 1 mg Route: IVPB; Site: left antecubital; ld1 Disposition Summary: 03/12/23 11:11 Hospitalization Ordered Hospitalization Status: Inpatient Admission rn Provider: Eduardo Mccartney rn Location: Telemetry/MedSurg (Inpatient) rn Condition: Stable rn Problem: new rn Symptoms: are unchanged rn Bed/Room Type: Standard rn Room Assignment: 211(03/12/23 14:02) em1 Diagnosis - Weakness rn - Paresthesia of skin rn - Cerebral infarction, unspecified rn Forms: - Medication Reconciliation Form rn - SBAR form rn NIH Stroke Scale - NIH Stroke Score Date: 03/12/2023 Time: 09:59 Total Score = 2 10. Dysarthria (speech clarity - read or repeat words) - 0(Normal) 11. Extinction and Inattention (visual/tactile/auditory/spatial/personal) - 0(No abnormality) 1a. Level of Consciousness (LOC) - 0(Alert) 1b. Level of Consciousness (LOC) (Month \\T\\ Age) - 0(Both) 1c. LOC Commands (Open \\T\\ Closes Eyes/Horticultural Nursery Assistant) - 0(Both) 2. Best Gaze (Lateral Gaze Paresis) - 0(Normal) 3. Visual Field Loss - 0(No visual loss) 4. Facial Palsy - 0(Normal) 5a. Left Arm: Motor (10-second hold) - 1(Drift) 5b. Right Arm: Motor (10-second hold) - 0(No drift) 6a. Left Leg: Motor (5-second hold - always test supine) - 0(No drift) 6b. Right Leg: Motor (5-second hold - always test supine) - 0(No drift) 7. Limb Ataxia (finger/nose \\T\\ heel/hein - test with eyes open) - 0(Absent) 8. Sensory Loss (pinprick arms/legs/face) - 1(Mild to moderate loss) 9. Best Language: Aphasia (description/naming/reading) - 0(No aphasia) Initials: ld1 Signatures: Dispatcher [employer] Graham Lr MD MD rn Martinez, Eric em1 Bobbi Rm RN RN ld1 Corrections: (The following items were deleted from the chart) 14:02 11:11 [email or web address] em1
--- NOTE | 2023-03-12 11:11 | ER ---
Nurse's Notes [facility] Name: Sunita Donohue Age: 57 yrs Sex: Female : 1965 Arrival Date: 03/12/2023 Time: 09:37 Bed 3 Private MD: Diagnosis: Weakness;Paresthesia of skin;Cerebral infarction, unspecified Presentation: 03/12 09:56 Chief complaint: Patient states: 1300 03/11/23 - sister asked patient "are you having a ld1 seizure." C/O possible stroke - left arm weakness, left hand numbness, impaired gait - "Stumbling around.". Coronavirus screen: At this time, the client does not indicate any symptoms associated with coronavirus-19. Ebola Screen: No symptoms or risks identified at this time. No acute neurological deficit is noted. The patients blood glucose was checked before arriving to the hospital and was found to be normal. Initial Sepsis Screen: Does the patient meet any 2 criteria? No. Patient's initial sepsis screen is negative. Does the patient have a suspected source of infection? No. Patient's initial sepsis screen is negative. Risk Assessment: Do you want to hurt yourself or someone else? Patient reports no desire to harm self or others. Onset of symptoms was March 12, 2023. 09:56 Method Of Arrival: Ambulatory ld1 09:56 Acuity: RIKI 3 ld1 Triage Assessment: 09:58 The onset of the patients symptoms was March 11, 2023 at 13:00. General: Appears in no ld1 apparent distress. comfortable, Behavior is calm, cooperative, appropriate for age. Pain: Denies pain. EENT: No signs and/or symptoms were reported regarding the EENT system. Neuro: Level of Consciousness is awake, alert, obeys commands, Oriented to person, place, time, situation, Reports dizziness, headache numbness. Cardiovascular: Capillary refill < 3 seconds Patient's skin is warm and dry. Cardiovascular: Rhythm is sinus rhythm. Respiratory: Airway is patent Respiratory effort is even, unlabored. GI: Abdomen is flat, non-distended. : No signs and/or symptoms were reported regarding the genitourinary system. Derm: No signs and/or symptoms reported regarding the dermatologic system. Musculoskeletal: No signs and/or symptoms reported regarding the musculoskeletal system. Stroke Activation: Symptom onset > 6 hours Physician: Stroke Attending; Name: ; Notified At: ; Arrived At: Physician: Chief Stroke Resident; Name: ; Notified At: ; Arrived At: Physician: Stroke Resident; Name: ; Notified At: ; Arrived At: Physician: ED Attending; Name: ; Notified At: ; Arrived At: Physician: ED Resident; Name: ; Notified At: ; Arrived At: Historical: - Allergies: 09:58 No Known Allergies; ld1 - PMHx: 09:58 CHF; Diabetes - IDDM; Diabetes - NIDDM; Gastroparesis; Hypertension; ld1 - PSHx: 09:58 Ligation of fallopian tube; ld1 - Immunization history:: Adult Immunizations up to date, Client reports receiving the 2nd dose of the Covid vaccine. - Social history:: Smoking status: Patient reports the use of cigarette tobacco products, denies chronic smoking, but will smoke occasionally, Patient/guardian denies using alcohol. - Family history:: not pertinent. - Hospitalizations: : No recent hospitalization is reported. Screenin:59 [facility] ED Fall Risk Assessment (Adult) History of falling in the last 3 months, ld1 including since admission No falls in past 3 months (0 pts). Abuse screen: Denies threats or abuse. Denies injuries from another. Nutritional screening: No deficits noted. Tuberculosis screening: No symptoms or risk factors identified. Assessment: 09:59 VAN Scoring: Arm Drift: Minor drift Visual Disturbance: No visual disturbance noted. ld1 Aphasia: No aphasia noted. Neglect: No neglect noted. TNKase (Tenecteplase) Screening: Indications: Treatment will start within 4.5 hours onset of symptoms: No. Reassessment: See triage assessment. Vital Signs: 09:56 BP 125 / 66; Pulse 77; Resp 13; Temp 98.1(O); Pulse Ox 95% on R/A; Weight 88.5 kg; ld1 Height 5 ft. 3 in. ; Pain 0/10; 10:53 Pulse 74; Resp 18; Pulse Ox 97% on R/A; ld1 10:54 BP 119 / 52; ld1 09:56 Body Mass Index 34.56 (88.50 kg, 160.02 cm) ld1 09:56 Pain Scale: Adult ld1 NIH Stroke Scale Scores: 09:59 NIHSS Score: 2 ld1 ED Course: 09:41 Patient arrived in ED. 09:41 Graham Mccartney MD is Attending Physician. rn 09:55 Bobbi Rm RN is Primary Nurse. ld1 09:58 Triage completed. ld1 09:58 Arm band placed on right wrist. EKG completed in triage. Results shown to MD. ld1 09:59 Patient has correct armband on for positive identification. Placed in gown. Bed in low ld1 position. Call light in reach. Side rails up X2. nurse monitoring on. Pulse ox on. NIBP on. Door closed. Noise minimized. Warm blanket given. 09:59 No provider procedures requiring assistance completed. ld1 10:01 Inserted saline lock: 20 gauge in right forearm, using aseptic technique. Blood ds4 collected. 10:13 CT Stroke Brain w/o Contrast In Process Unspecified. EDMS 10:[address] In Process Unspecified. EDMS 10:[address] In Process Unspecified. EDMS 10:20 Stroke CXR 1 View In Process Unspecified. EDMS 11:10 Eduardo Mccartney MD is Hospitalizing Provider. rn 16:02 Patient admitted, IV remains in place. ld1 Administered Medications: 11:35 Drug: Aspirin PO 325 mg Route: PO; ld1 11:35 Drug: foLIC Acid IVPB 1 mg Route: IVPB; Site: left antecubital; ld1 Medication: 09:59 VIS not applicable for this client. ld1 Outcome: 11:11 Decision to Hospitalize by Provider. rn 16:02 Admitted to Med/surg accompanied by tech, via wheelchair, with chart. ld1 16:02 Condition: stable 16:02 Instructed on the need for admit. 16:02 Patient left the ED. ld1 NIH Stroke Scale - NIH Stroke Score Date: 03/12/2023 Time: 09:59 Total Score = 2 10. Dysarthria (speech clarity - read or repeat words) - 0(Normal) 11. Extinction and Inattention (visual/tactile/auditory/spatial/personal) - 0(No abnormality) 1a. Level of Consciousness (LOC) - 0(Alert) 1b. Level of Consciousness (LOC) (Month \\T\\ Age) - 0(Both) 1c. LOC Commands (Open \\T\\ Closes Eyes/Environmental Field Office Manager) - 0(Both) 2. Best Gaze (Lateral Gaze Paresis) - 0(Normal) 3. Visual Field Loss - 0(No visual loss) 4. Facial Palsy - 0(Normal) 5a. Left Arm: Motor (10-second hold) - 1(Drift) 5b. Right Arm: Motor (10-second hold) - 0(No drift) 6a. Left Leg: Motor (5-second hold - always test supine) - 0(No drift) 6b. Right Leg: Motor (5-second hold - always test supine) - 0(No drift) 7. Limb Ataxia (finger/nose \\T\\ heel/hein - test with eyes open) - 0(Absent) 8. Sensory Loss (pinprick arms/legs/face) - 1(Mild to moderate loss) 9. Best Language: Aphasia (description/naming/reading) - 0(No aphasia) Initials: ld1 Signatures: Dispatcher [employer] Gely Huerta Roman, MD MD rn Swanson, Donovan ds4 Bobbi Rm RN RN ld1
[2023-03-12] MEDS ORDERED: ASPIRIN 81 MG CHEWABLE TABLET ONE (11:40)
[2023-03-12] MEDS ORDERED: FOLIC ACID 5 MG/ML VIAL ONE (11:41)
--- NOTE | 2023-03-12 12:15 | RAD REPORT ---
EXAM DESCRIPTION: RADChest Single View03/12/2023 10:19 am CLINICAL HISTORY: left arm weakness/numb COMPARISON: Chest Single View dated 11/02/2021; Chest Pa And Lat (2 Views) dated 09/26/2018; Chest Sing le View dated 04/19/2017; CHEST PA AND LAT 2 VIEW dated 07/04/2013 TECHNIQUE: Portable AP view of the chest. FINDINGS: The lungs are clear. No pneumothorax or effusion. The cardiomediastinal contours are unre markable. IMPRESSION: No acute cardiopulmonary process.
[2023-03-12] MEDS ORDERED: TRAMADOL HCL 50 MG TAB PO PRN (13:49)
[2023-03-12] MEDS ORDERED: ACETAMINOPHEN 325 MG TABLET PO PRN (13:49)
[2023-03-12] MEDS ORDERED: ONDANSETRON 4 MG/2 ML VIAL IV PRN (14:43)
[2023-03-12] MEDS ORDERED: D50W 25 GM/50 ML SYRINGE IV PRN (14:49)
[2023-03-12] MEDS ORDERED: GLUCAGON 1 MG/VIAL IM PRN (14:49)
[2023-03-12] MEDS ORDERED: D10W 125 ML IV PRN (14:59)
--- NOTE | 2023-03-12 15:02 | P.HP ---
Certification for Inpatient Patient admitted to: Inpatient With expected LOS: >2 Midnights Patient will require the following post-hospital care: None Practitioner: I am a practitioner with admitting privileges, knowledge of patient current condition, hospital course, and medical plan of care. Services: Services provided to patient in accordance with Admission requirements found in Title 42 Section 412.3 of the Code of Federal Regulations Patient History Date of Service: 03/12/23 History of Present Illness: Patient is a 57-year-old female with a past medical history significant for DM 2, hypertension, DM 2, GERD with a past medical history significant for left- sided weakness, left hand numbness and difficulty speaking onset yesterday. Patient is a poor historian and unable to provide accurate history. Patient reported that she has back surgery and since patient has surgery, patient has been having poor gait. Family reported that patient had seizure-like activity yesterday when he went for lunch. Patient denies any other signs and symptoms. Symptoms are aggravated or relieved by nothing. Patient decided to present to the hospital due to worsening symptoms. Allergies No Known Allergies Allergy (Verified 08/19/22 20:44) Home Medications: Folic Acid 1 mg PO DAILY 08/19/22 Insulin Glargine,Hum.rec.anlog [Toujeo Solostar] 28 unit SQ DAILY 08/19/22 Metformin HCl [Metformin HCl ER] 750 mg PO DAILY 08/19/22 Pantoprazole [Protonix Tab*] 40 mg PO DAILY 08/19/22 Semaglutide [Ozempic] 0.5 mg pe SQ EVERY 7TH DAY 08/19/22 Nitrofurantoin Macrocrystal [Macrodantin] 100 mg PO BID 5 Days #10 tab 08/23/22 Smz./Tmp. [Bactrim Ds 800 MG/160 MG] 1 tab PO BID 5 Days #10 tab 08/23/22 - Past Medical/Surgical History Diabetic: Yes -: HTN -: diabetes mellitus II -: tubal ligation - Family History Mother -: Hypertension, Diabetes Father -: Hypertension, Diabetes - Social History Smoking Status: Former smoker Alcohol use: No CD- Drugs: No Caffeine use: No Place of Residence: Home Review of Systems General: Weakness Eyes: Unremarkable ENT: Unremarkable Respiratory: Unremarkable Cardiovascular: Unremarkable Gastrointestinal: Unremarkable Genitourinary: Unremarkable Musculoskeletal: Other (Poor gait ) Integumentary: Unremarkable Neurological: Weakness, Numbness Lymphatics: Unremarkable Physical Examination - Physical Exam General: Alert, In no apparent distress, Oriented x3, Cooperative HEENT: Atraumatic, PERRLA, Mucous membr. moist/pink, EOMI, Sclerae nonicteric Neck: Supple, 2+ carotid pulse no bruit, No LAD, Without JVD or thyroid abnormality Respiratory: Clear to auscultation bilaterally, Normal air movement Cardiovascular: No edema, Regular rate/rhythm, Normal S1 S2 Capillary refill: <2 Seconds Gastrointestinal: Normal bowel sounds, Non-distended, No tenderness Musculoskeletal: No clubbing, No swelling, No tenderness Integumentary: No rashes, No significant lesion Neurological: Normal speech, Normal tone, Normal affect, Abnormal gait, Abnormal strength (Left sided weakness) Lymphatics: No axilla or inguinal lymphadenopathy - Studies Laboratory Data (last 24 hrs) 03/12/23 09:58: PT 10.4, INR 0.95, APTT 30.2 03/12/23 09:58: WBC 10.00, Hgb 10.2 L, Hct 32.9 L, Plt Count 421 H 03/12/23 09:58: Sodium 134 L, Potassium 5.0, BUN 20 H, Creatinine 1.03 H, Glucose 164 H, Magnesium 2.3 Assessment and Plan - Plan --Left-sided weakness\left hand paresthesias. CT head does not indicate any acute intracranial abnormality. MRI brain pending for further evaluation. PT eval and treat. Continue supportive care. --Elevated [id number]. Will trend serial troponins. Cardiology consulted. Continue aspirin and folic acid. --DM2 with hyperglycemia. BS monitoring with sliding scale insulin. Continue insulin glargine. --Hypertension. We will allow permissive hypertension pending resolution of MRI brain. We will continue to monitor blood pressure levels. -- GERD. Continue Protonix. --Class I obesity. Likely secondary to excess calories intake. Patient counseled on weight reduction, diet and exercise therapy. -- DVT prophylaxis with Lovenox subQ. Discharge Plan: Home Plan to discharge in: Greater than 2 days - Advance Directives Does patient have a Living Will: No Does patient have a Durable POA for Healthcare: No - Code Status/Comfort Care Code Status Assessed: Yes Physician Review: Patient Assessed, Agree with Above Assessment and Plan Critical Care: No
--- NOTE | 2023-03-12 16:02 | RAD REPORT ---
EXAM DESCRIPTION: MRI - Brain Wo Cont - 03/12/2023 3:37 pm CLINICAL HISTORY: R O CVA COMPARISON: Brain Wo Cont dated 11/03/2021 TECHNIQUE: Sagittal T1-weighted images were obtained along with PD/heavily T2-weighted and T2-FLAIR images. Axial DWI and ADC mapping sequences were also obtained along with coronal heavily T2-weighted images were obtained. FINDINGS: No intracranial hemorrhage, mass or acute infarction. There is no edema or shift of midlin e structures. No extra-axial fluid collections. Signal voids are seen as a normal finding in the quinn r intracranial vessels. No significant white matter disease. Small remote bilateral basal ganglia lac unar infarcts. Remote left pontine infarct. Mild chronic small vessel ischemic changes. Mastoid air cells and paranasal sinuses are clear. IMPRESSION: No acute intracranial abnormality. Specifically, no evidence of acute infarct. Sequela o f small remote infarcts.
[2023-03-12] MEDS: INSULIN -REGULAR HUMAN 50 UNIT/0.5 ML ML SQ SCH ×2 (16:30→21:00)
[2023-03-12 16:59] VITALS: BMI 29.2
[2023-03-12 17:39] LABS: Magnesium 2.3 mg/dL (1.6-2.4); Phosphorus 4.6 mg/dL (2.5-4.9); Thyroid Stimulating Hormone 0.919 uIU/mL (0.358-3.740)
--- NOTE | 2023-03-12 17:51 | CON ---
Date of Consultation: 03/12/2023 Reason For Consultation: Elevated troponin. History Of Present Illness: A 57-year-old female. Apparently, she has history of diabetes, hyperten nanda, presented with left-sided weakness and left hand numbness and slurred speech. Denies having an y chest pain. There is no shortness of breath, nausea, vomiting, diarrhea. Troponin was slightly el evated, hence I was consulted. Past Medical History: As outlined above in the HPI. Medications: Refer to reconciliation sheet for detailed list. Allergies: NO KNOWN DRUG ALLERGIES. Family History: No premature coronary artery disease or cancer. Social History: She is an ex-smoker. Does not drink or use any drugs. Review of Systems: All systems reviewed and they were negative except what mentioned in HPI. Physical Examination: Vital Signs: Reviewed. Head and Neck: Pupils are equal, reactive to light. No JVD. No cervical lymphadenopathy. Neck is supple. Thyroid is not enlarged. Lungs: Clear to auscultation bilaterally. No rhonchi, wheezing, or crackles. No accessory muscle u se. Heart: Irregular. No extra sounds. Abdomen: Soft, nontender. Bowel sounds positive. No organomegaly. No masses or hernia. No rigidi ty or rebound. Extremities: No clubbing or cyanosis. Intact pulses. Skin: No rash. Neurologic: Alert, awake, oriented x3. Mild weakness on the left side. Lymph Nodes: No cervical or axillary lymphadenopathy. Investigations: Troponin is 239 first set. Creatinine is 1.03 and hemoglobin is 10.2. Assessment And Recommendations: 1.Elevated troponin with no chest pain. The patient is not a very good historian. Trend 2 more set s of troponin and we will decide on treatment accordingly. Agree with aspirin for now and once the p atient is clinically stable from the possible stroke situation, recommend to obtain a stress test and please obtain an echocardiogram to further evaluate. 2.Hypertension. Blood pressure is controlled. Continue home medications. Thank you for the consult. /NEAL Voice ID: [id number] Report ID: [id number]
[2023-03-12] MEDS: FOLIC ACID 1 MG TABLET PO SCH (18:32)
[2023-03-12] MEDS: ASPIRIN 81 MG CHEWABLE TABLET PO SCH (18:32)
[2023-03-12 19:01] LABS: Specific Gravity > 1.030 (1.005-1.030); Urine Bacteria <20 /HPF (<20); Urine Bilirubin NEGATIVE (Negative); Urine Blood Negative (Negative); Urine Clarity Clear (Clear); Urine Color Light-Yellow (Yellow); Urine Crystals Unidentified Few /HPF (None Seen); Urine Glucose NEGATIVE (Negative); Urine Mucus Slight /HPF (None Seen); Urine Protein NEGATIVE (Negative); Urine RBC <5 /HPF (None Seen); Urine Urobilinogen Normal (Normal); Urine pH 6.5 (5.0-7.0)
--- NOTE | 2023-03-12 20:30 | P.PN ---
Date of Service: 03/13/23 Subjective: ROS: 10 point ROS as noted above, otherwise negative Physical Exam: Gen: Alert, NAD, AOx3 HEENT: normal conjunctiva, sclera anicteric CV: regular rate & rhythm, no edema Pulm: non-labored respirations on room air, clear bilaterally Abd: soft, non-tender, non-distended MSK: no joint tenderness Neuro: normal speech, normal affect, Left sided weakness Problem List: 1. Left-sided weakness\left hand paresthesias 2. Elevated troponin 3. DM2 with hyperglycemia 4. Hypertension 5. GERD 6. Class I obesity PLAN MRI brain (03/12): No acute intracranial abnormality. Specifically, no evidence of acute infarct. Sequela of small remote infarcts. PT eval and treat. trend troponins. Cardiology consulted. Continue aspirin and folic acid. Continue insulin glargine. SSI Continue home medications. Continue Protonix. Patient counseled on weight reduction, diet and exercise therapy. VTE: Lovenox sq
[2023-03-13 04:15] LABS: Absolute Lymphocytes (CBC) 3.9 K/uL (0.7-4.9); Hematocrit 31.4 % (36.0-45.0); Lymphocytes % 46.2 % (15.3-44.8); MPV 8.7 fL (7.6-11.3); RBC Red Blood Cell Count 3.82 M/uL (3.86-4.86)
[2023-03-13 05:12] LABS: Potassium 4.9 mEq/L (3.5-5.1)
[2023-03-13] MEDS: INSULIN -REGULAR HUMAN 50 UNIT/0.5 ML ML SQ SCH ×4 (07:30→20:52)
[2023-03-13] MEDS: ENOXAPARIN 40 MG/0.4 ML SQ SCH (11:08)
[2023-03-13] MEDS: FOLIC ACID 1 MG TABLET PO SCH (11:09)
[2023-03-13] MEDS: ASPIRIN 81 MG CHEWABLE TABLET PO SCH (11:09)
--- NOTE | 2023-03-13 20:26 | EKG ---
Test Date: 2023-03-12 Test Time: 09:56:06 President Practicing Urologist: EVANGELINA MEASUREMENT RESULTS: Intervals: Rate: 75 MT: 152 QRSD: 88 QT: 388 QTc: 433 [place]: P: 26 MT: 152 QRS: 82 T: 35 INTERPRETIVE STATEMENTS: Normal sinus rhythm Normal ECG Compared to ECG 10/22/2022 11:07:29 Prolonged QT interval no longer present Electronically Signed On 03-13-23 20:23:54 CDT by Juaquin Oliveira
[2023-03-14 06:34] LABS: Absolute Lymphocytes (CBC) 3.2 K/uL (0.7-4.9); Hematocrit 34.2 % (36.0-45.0); Lymphocytes % 43.3 % (15.3-44.8); MCV 81.6 fL (80-100); MPV 8.5 fL (7.6-11.3)
[2023-03-14 06:46] LABS: Potassium 4.9 mEq/L (3.5-5.1)
[2023-03-14] MEDS: INSULIN -REGULAR HUMAN 50 UNIT/0.5 ML ML SQ SCH (08:15)
[2023-03-14] MEDS: ENOXAPARIN 40 MG/0.4 ML SQ SCH (08:16)
[2023-03-14] MEDS: FOLIC ACID 1 MG TABLET PO SCH (08:16)
[2023-03-14] MEDS: ASPIRIN 81 MG CHEWABLE TABLET PO SCH (08:16)
[2023-03-14] MEDS ORDERED: REGADENOSON 0.4 MG/5 ML SYR IV ONE (08:24)
--- NOTE | 2023-03-14 11:14 | RAD REPORT ---
EXAM DESCRIPTION: NM - Rest Stress Cardiac Imaging - 03/14/2023 10:56 am CLINICAL HISTORY: CP COMPARISON: REST STRESS CARDIAC dated 03/08/2011 TECHNIQUE: The patient was administered approximately 10.5 mCi of Tc 99m Sestamibi prior to resting SPECT imaging of the heart. The patient was then administered approximately 30.8 mCi of Tc 99m Sestam ibi following exercise or pharmacologic stress. Multiplanar SPECT images were reviewed. FINDINGS: Large fixed defects involving the inferior and septal hart, the apex, as well as the late ral wall lower aspect adjacent to the inferior wall throughout its apical to basal segments. Adjacent small regions of anterior wall apical to mid segments demonstrating a defect on the rest but not the stress images, likely artifactual. No convincing regions of reversible ischemia. Hypokinesia involving the apex, inferior wall, and septal wall. The end diastolic volume is 101 ml, the end systolic volume is 61 ml, and the ejection fraction is 39 %. IMPRESSION: Large regions of fixed defect suggestive of prior infarcts involving the inferior and se ptal hart, the apex, and the lower aspect of the lateral wall. Associated hypokinesia of the inferio r and septal hart. No convincing evidence of stress-induced ischemia. Small regions of anterior wall apical to mid segme nt demonstrate loss of uptake on the rest images, likely of artifactual nature. Decreased left ventricular ejection fraction, 39%.
[2023-03-14 11:29] VITALS: BP 146/68; TEMP 97.3
[2023-03-14 13:42] VITALS: O2SAT 100
--- NOTE | 2023-03-14 23:14 | PN ---
Date of Progress Note: 03/14/2023 Subjective: Seen by bedside, doing well. No chest pain. Stress test was negative for ischemia. Review of Systems: No chest pain, shortness of breath, orthopnea, cough. No nausea, vomiting, diarrhea. All other syst ems reviewed are negative. Physical Examination: Vital signs: Reviewed. Head and Neck: Pupils are equal, reactive to light. Intact eye movements. No JVD. No cervical lymphadenopathy. Neck is supple. Thyroid is not enlarged. Lungs: Clear to auscultation bilaterally. No rhonchi, wheezing, or crackles. No accessory muscle u se. Heart: Regular rate and rhythm. No extra sounds. Abdomen: Soft, nontender. Bowel sounds positive. No organomegaly. No tenderness to rebound. Extremities: No edema, clubbing, cyanosis. Intact pulses. Skin: No rash. Neurologic: Alert, awake, oriented x3. No acute focal deficits appreciated. Investigations: Stress test was negative for acute ischemia. Assessment And Plan: 1.Elevated troponin. No chest pain and negative stress test. This is demand ischemia. No further workup is needed. 2.Hypertension. Blood pressure is controlled. Continue current therapy. Cardiology will sign off. The patient can be followed up as an outpatient. /NEAL Voice ID: [id number] Report ID: [id number]
--- NOTE | 2023-03-15 06:51 | TREADPHA ---
DX: ELEVATED TROPONIN Date of Study: 03/14/2023 Ht: 5' 4 " Wt: 170 lb 0 oz Consulting Physician: WM MEDICATIONS: TYLENOL, ASPIRIN, DEXTROSE, LOVENOX, FOLIC ACID, GLUCAGEN, NOVOLIN-R, ZOFRAN, ULTRAM HISTORY: 57 YEAR OLD FEMALE WITH COMPLAINTS OF WEAKNESS. HISTORY OF DIABETES MELLITUS, HYPERTENSION, HYPERLIPIDEMIA, BACK PAIN. NON SMOKER, NON DRINKER. PHYSICIAL EXAMINATION: RESTING B.P.: 115/70 RESTING H.R.: 78 RESTING EKG: NORMAL SINUS RHYTHM PROTOCOL: PHARMACOLOGIC EXERCISE TIME: 3:30 B.P. AT PEAK STRESS: 94/58 IMPRESSION: LEXISCAN INJECTED FOLLOWED BY CARDIOLITE PER PROTOCOL. SEE NUCLEAR MEDICINE REPORT. NO SUPRAVENTRICULAR TACHYCARDIA, VENTRICULAR TACHYCARDIA, PREMATURE ATRIAL COMPLEXES, PREMATURE VENTRICULAR COMPLEXES. PATIENT REPORTS NO CHEST PAIN. NO ELECTROCARDIOGRAM CHANGES OF ISCHEMIA WITH LEXISCAN.
== END 2023-03-14 13:44 | disposition home or self-care (01) | DRG 57 ==
LOC: ER 09:37 → ERHOLD 13:48 → 2ND 15:34
PROVIDERS: ADMIT Hospitalist; ATTEND Hospitalist
DX: I69.354 Hemiplegia and hemiparesis following cerebral infarction affecting left non-dominant side (principal); I24.8 Other forms of acute ischemic heart disease; I10 Essential (primary) hypertension; E11.65 Type 2 diabetes mellitus with hyperglycemia; E66.09 Other obesity due to excess calories; F17.210 Nicotine dependence, cigarettes, uncomplicated; R29.702 NIHSS score 2; R47.81 Slurred speech; R20.2 Paresthesia of skin; Z98.51 Tubal ligation status; K21.9 Gastro-esophageal reflux disease without esophagitis; Z79.4 Long term (current) use of insulin; Z68.29 Body mass index [BMI] 29.0-29.9, adult; Z79.84 Long term (current) use of oral hypoglycemic drugs; Z79.899 Other long term (current) drug therapy
CPT/HCPCS: 36415; 70450; 70496; 70498; 70551; 71045; 78452; 80048; 80061; 81001; 82565; 82947; 83036; 83735; 84100; 84439; 84443; 84484; 85025; 85610; 85730; 93005; 93017; 96374; 97116; 97161; 99285; A9500; J1650; J1815; J2785; Q9967

== ENCOUNTER 2023-05-15 23:18 | Emergency (ER) | payer OTHER ==
[2023-05-16 01:21] LABS: Absolute Lymphocytes (CBC) 3.4 K/uL (0.7-4.9); Hematocrit 31.3 % (36.0-45.0); Lymphocytes % 40.9 % (15.3-44.8); MCV 81.4 fL (80-100); MPV 9.3 fL (7.6-11.3); Platelets 285 thou/uL (152-406); Protime INR 1.1; RBC Red Blood Cell Count 3.85 M/uL (3.86-4.86)
[2023-05-16 01:32] LABS: Potassium 3.8 mEq/L (3.5-5.1)
--- NOTE | 2023-05-16 02:18 | EDPHYS ---
Physician Documentation [facility] Name: Sunita Donohue Age: 57 yrs Sex: Female : 1965 Arrival Date: 05/15/2023 Time: 23:18 Bed 6 Private MD: ED Physician Jason Jeong HPI: 05/15 23:25 This 57 yrs old Female presents to ER via Unassigned with complaints of Nose sp4 Bleed. Historical: - Allergies: 05/16 00:01 No Known Allergies; as6 - PMHx: 00:01 CHF; Diabetes - IDDM; Diabetes - NIDDM; Gastroparesis; Hypertension; as6 - PSHx: 00:01 Ligation of fallopian tube; as6 - Immunization history:: Client reports receiving the 2nd dose of the Covid vaccine, pfizer. - Social history:: Smoking status: Patient denies any tobacco usage or history of. Vital Signs: 05/15 23:59 BP 127 / 82; Pulse 74; Resp 18 S; Temp 97.5(TE); Pulse Ox 95% on R/A; Weight 84.37 kg as6 (R); Height 5 ft. 4 in. (R); Pain 8/10; 05/16 01:00 BP 167 / 82; Pulse 66; Resp 18 S; Pulse Ox 99% on R/A; ha1 02:00 BP 160 / 67; Pulse 64; Resp 18 S; Pulse Ox 98% on R/A; ha1 05/15 23:59 Body Mass Index 31.93 (84.37 kg, 162.56 cm) as6 05/15 23:59 Pain Scale: Adult as6 MDM: 05/15 23:34 Patient medically screened. sp4 05/16 02:12 ED course: CT report - TECHNIQUE: Images were obtained in axial, sagittal, and coronal sp4 planes. This exam was performed according to our departmental dose-optimization program which includes use of Automated Exposure Control, adjustment of the mA and/or kV according to patient size and/or use of iterative reconstruction technique. FINDINGS: Comminuted displaced left nasal bone fractures. Fracture anterior maxillary spine. Deformity nasal septum. No orbital fractures bilaterally. Mucosal thickening superior maxillary antra bilaterally. Diaphragmatic arch is intact bilaterally. No airfluid levels paranasal sinuses. Pterygoid plates are intact bilaterally. No mandibular fractures. Patient is edentulous. No abnormality visualized intracranial structures. Sclerotic changes right mastoid air cells possibly chronic inflammation. IMPRESSION: Comminuted displaced fractures left nasal bone with additional fracture anterior maxillary spine. No additional fractures seen. . 02:16 Differential diagnosis: nasal fracture, trauma, sinusitis, epistaxis r/t trauma, sp4 spontaneous epistaxis. Data reviewed: vital signs, nurses notes, old medical records, lab test result(s), radiologic studies, CT scan. Consideration of Admission/Observation Escalation of care including admission/observation considered. ED course: Nasal fractures by CT -nondisplaced nasal fractures will likely heal up by themselves. We will advised to avoid additional nasal injury. Follow-up patient cannot recall if she has had any nasal injury but there are definitely nasal fractures by CAT scan. Will prescribe as needed tramadol and ibuprofen.. 05/15 23:34 Order name: Basic Metabolic Panel; Complete Time: 02:16 sp4 05/15 23:34 Order name: CBC with Diff; Complete Time: 02:16 sp4 05/15 23:34 Order name: PT-INR; Complete Time: 02:16 sp4 05/15 23:34 Order name: CT Facial Bones W/O Con sp4 05/15 23:34 Order name: IV Saline Lock; Complete Time: 01:13 sp4 05/15 23:34 Order name: Labs collected and sent; Complete Time: 01:13 sp4 Administered Medications: No medications were administered Disposition Summary: 05/16/23 02:18 Discharge Ordered Location: Home sp4 Problem: new sp4 Symptoms: have improved sp4 Condition: Stable sp4 Diagnosis - Fracture of nasal bones sp4 - Epistaxis sp4 Followup: sp4 - With: Jaqueline Friedman MD - When: 7 - 10 days - Reason: Recheck today's complaints Discharge Instructions: - Discharge Summary Sheet sp4 - Nosebleed, Adult, [id number] sp4 Forms: - Patient Portal Instructions sp4 Prescriptions: - Tramadol 50 mg Oral Tablet - take 1 tablet by ORAL route every 8 hours as needed; 12 tablet; Refills: 0, sp4 Product Selection Permitted Signatures: Dispatcher [employer] Louis Torre RN RN as6 Jason Jeong MD MD sp4
--- NOTE | 2023-05-16 02:18 | ER ---
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 Coronavirus as6 screen: At this time, the client does not indicate any symptoms associated with coronavirus-19. Ebola Screen: No symptoms or risks identified at this time. Initial Sepsis Screen: Does the patient meet any 2 criteria? No. Patient's initial sepsis screen is negative. Does the patient have a suspected source of infection? No. Patient's initial sepsis screen is negative. Risk Assessment: Do you want to hurt yourself or someone else? Patient reports no desire to harm self or others. Onset of symptoms was May 16, 2023. 00:02 Acuity: RIKI 4 as6 00:02 Method Of Arrival: Ambulatory as6 Historical: - Allergies: 00:01 No Known Allergies; as6 - PMHx: 00:01 CHF; Diabetes - IDDM; Diabetes - NIDDM; Gastroparesis; Hypertension; as6 - PSHx: 00:01 Ligation of fallopian tube; as6 - Immunization history:: Client reports receiving the 2nd dose of the Covid vaccine, pfizer. - Social history:: Smoking status: Patient denies any tobacco usage or history of. Screenin/12 23:53 [facility] ED Fall Risk Assessment (Adult) History of falling in the last 3 months, ha1 including since admission No falls in past 3 months (0 pts) Confusion or Disorientation No (0 pts) Intoxicated or Sedated No (0 pts) Impaired Gait Yes (1 pt) Mobility Assist Device Used Yes (1 pt) Altered Elimination No (0 pt) Score/Fall Risk Level 3 or more points = High Risk Oriented to surroundings, Maintained a safe environment, Hourly rounding (assess needs \T\ fall precautionary measures) done, Used ambulatory aids as needed (educated on \T\ assisted with). Abuse screen: Denies threats or abuse. Denies injuries from another. Nutritional screening: No deficits noted. Tuberculosis screening: No symptoms or risk factors identified. Assessment: 05/16 00:15 General: Appears comfortable, Behavior is calm, cooperative. Pain: Complains of pain in ha1 back Pain does not radiate. Pain currently is 4 out of 10 on a pain scale. Neuro: Level of Consciousness is awake, alert, obeys commands, Oriented to person, place, time, situation. Cardiovascular: Patient's skin is warm and dry. Respiratory: Airway is patent Respiratory effort is even, unlabored, Respiratory pattern is regular, symmetrical. EENT: Nares are clear Reports nose bleeding . Derm: Skin is pink, warm \T\ dry. Musculoskeletal: Circulation, motion, and sensation intact. Range of motion: intact in all extremities. 01:15 Reassessment: Patient and/or family updated on plan of care and expected duration. Pain ha1 level reassessed. Patient is alert, oriented x 3, equal unlabored respirations, skin warm/dry/pink. Vital Signs: 05/15 23:59 BP 127 / 82; Pulse 74; Resp 18 S; Temp 97.5(TE); Pulse Ox 95% on R/A; Weight 84.37 kg as6 (R); Height 5 ft. 4 in. (R); Pain 8/10; 05/16 01:00 BP 167 / 82; Pulse 66; Resp 18 S; Pulse Ox 99% on R/A; ha1 02:00 BP 160 / 67; Pulse 64; Resp 18 S; Pulse Ox 98% on R/A; ha1 05/15 23:59 Body Mass Index 31.93 (84.37 kg, 162.56 cm) as6 05/15 23:59 Pain Scale: Adult as6 ED Course: 05/15 23:23 Patient arrived in ED. es 23:25 Jason Jeong MD is Attending Physician. sp4 23:53 Patient has correct armband on for positive identification. Bed in low position. Call ha1 light in reach. Side rails up X 1. Adult w/ patient. 23:59 Arm band placed on. as6 05/16 00:03 Triage completed. as6 00:31 CT Facial Bones W/O Con In Process Unspecified. EDMS 00:50 Missed attempt(s): 20 gauge in right antecubital area. ha1 01:11 No provider procedures requiring assistance completed. Inserted saline lock: 22 gauge ha1 in left forearm, using aseptic technique. Blood collected. 02:17 Jaqueline Friedman MD is Referral Physician. sp4 02:37 Provided Education on: Follow up with Dr. Friedman. how to prevent nose bleed . ha1 02:37 IV discontinued, intact, bleeding controlled, No redness/swelling at site. Pressure ha1 dressing applied. Administered Medications: No medications were administered Medication: 02:37 VIS not applicable for this client. ha1 Outcome: 02:18 Discharge ordered by . sp4 02:37 Discharged to home ambulatory. ha1 02:37 Condition: stable 02:37 Discharge instructions given to patient, family, Instructed on discharge instructions, follow up and referral plans. medication usage, Demonstrated understanding of instructions, follow-up care, medications, Prescriptions given X 1. 02:39 Patient left the ED. ha1 Signatures: Dispatcher [employer] Betsey Galindo Ashby, RN RN as6 Anahy Lowry RN RN ha1 Jason Jeong MD MD sp4
[2023-05-16 04:00] VITALS: TEMP 97.5
[2023-05-16 04:02] VITALS: BP 167/82; O2SAT 99
--- NOTE | 2023-05-16 13:13 | RAD REPORT ---
EXAM DESCRIPTION: CT - Facial Bones W/ Mpr - 05/16/2023 6:52 am CLINICAL HISTORY: 57 years Female facial pain, nose bleed COMPARISON: CT scan of the brain dated March 12, 2023 TECHNIQUE: Images were obtained in axial, sagittal, and coronal planes. This exam was performed according to our departmental dose-optimization program which includes use of Automated Exposure Control, adjustment of the mA and/or kV according to patient size and/or use of iterative reconstruction technique. FINDINGS: Comminuted displaced left nasal bone fractures. Fracture anterior maxillary spine. Deformi ty nasal septum. No orbital fractures bilaterally. Mucosal thickening superior maxillary antra bilaterally. Diaphragma tic arch is intact bilaterally. No air-fluid levels paranasal sinuses. Pterygoid plates are intact bilaterally. No mandibular fractures. Patient is edentulous. No abnormality visualized intracranial structures. Sclerotic changes right mastoid air cells possibly chronic inflammation. IMPRESSION: Comminuted displaced fractures left nasal bone with additional fracture anterior maxilla ry spine. No additional fractures seen. Electronically signed by: Starla Corona MD 05/16/2023 12:45 AM CDT Due to temporary technical issues with the PACS/Fluency reporting system, reports are being signed by the in house radiologist without review as a courtesy to ensure prompt reporting. The interpreting r adiologist is fully responsible for the content of the report.
== END 2023-05-16 02:39 | disposition home or self-care (01) ==
LOC: ER 23:18
DX: S02.2XXA Fracture of nasal bones, initial encounter for closed fracture (principal); R04.0 Epistaxis; I10 Essential (primary) hypertension; E11.9 Type 2 diabetes mellitus without complications
CPT/HCPCS: 36415; 70486; 76377; 80048; 85025; 85610; 99284

== ENCOUNTER 2023-07-15 21:27 | Emergency (ER) | payer OTHER ==
--- NOTE | 2023-07-15 21:53 | EDPHYS ---
Physician Documentation [facility] Name: Sunita Donohue Age: 57 yrs Sex: Female : 1965 Arrival Date: 07/15/2023 Time: 21:27 Bed 12 Private MD: Gene Lee ED Physician Sanam Harrison HPI: 07/15 21:49 This 57 yrs old Female presents to ER via Unassigned with complaints of pt says that sp3 she has a spot on right leg. thinks it might be something wrong. 21:49 This 57 yrs old Female presents to ER via Unassigned with complaints of redness on sp3 right ankle. 21:49 57-year-old female with a history of chronic pain, hyperlipidemia presents to the ED sp3 with chief complaint area of redness/pimple on her right foot/ankle for "several days". Patient denies any trauma, fever, injury, other spots or rashes anywhere on her body, bleeding, or any other signs or symptoms on ROS at this time. . Historical: - PMHx: 21:55 CHF; Gastroparesis; Hypertension; Diabetes - NIDDM; acid reflux (Diabetes - NIDDM); pf1 Chronic back pain; - PSHx: 21:55 Ligation of fallopian tube; back surgery; pf1 - Immunization history:: Adult Immunizations up to date, Client reports receiving the 2nd dose of the Covid vaccine, Last tetanus immunization: > 10 years ago Flu vaccine is not up to date. - Social history:: Smoking status: Patient denies any tobacco usage or history of. Patient/guardian denies using alcohol, street drugs. ROS: 21:50 Constitutional: Negative for fever, chills, and weight loss, Eyes: Negative for injury, sp3 pain, redness, and discharge, ENT: Negative for injury, pain, and discharge, Neck: Negative for injury, pain, and swelling, Cardiovascular: Negative for chest pain, palpitations, and edema, Respiratory: Negative for shortness of breath, cough, wheezing, and pleuritic chest pain, Abdomen/GI: Negative for abdominal pain, nausea, vomiting, diarrhea, and constipation, Back: Negative for injury and pain, : Negative for injury, bleeding, discharge, and swelling, MS/Extremity: Negative for injury and deformity, Neuro: Negative for headache, weakness, numbness, tingling, and seizure, Psych: Negative for depression, anxiety, suicide ideation, homicidal ideation, and hallucinations, Allergy/Immunology: Negative for hives, rash, and allergies, Endocrine: Negative for neck swelling, polydipsia, polyuria, polyphagia, and marked weight changes, Hematologic/Lymphatic: Negative for swollen nodes, abnormal bleeding, and unusual bruising, 21:50 All other systems are negative, Exam: 21:50 Constitutional: This is a well developed, well nourished patient who is awake, alert, sp3 and in no acute distress. Head/Face: Normocephalic, atraumatic. Eyes: Pupils equal round and reactive to light, extra-ocular motions intact. Lids and lashes normal. Conjunctiva and sclera are non-icteric and not injected. Cornea within normal limits. Periorbital areas with no swelling, redness, or edema. Neck: Trachea midline, no thyromegaly or masses palpated, and no cervical lymphadenopathy. Supple, full range of motion without nuchal rigidity, or vertebral point tenderness. No Meningismus. Chest/axilla: Normal chest wall appearance and motion. Nontender with no deformity. No lesions are appreciated. Cardiovascular: Regular rate and rhythm with a normal S1 and S2. No gallops, murmurs, or rubs. Normal PMI, no JVD. No pulse deficits. Respiratory: Lungs have equal breath sounds bilaterally, clear to auscultation and percussion. No rales, rhonchi or wheezes noted. No increased work of breathing, no retractions or nasal flaring. Abdomen/GI: Soft, non-tender, with normal bowel sounds. No distension or tympany. No guarding or rebound. No evidence of tenderness throughout. Back: No spinal tenderness. No costovertebral tenderness. Full range of motion. MS/ Extremity: Pulses equal, no cyanosis. Neurovascular intact. Full, normal range of motion. Neuro: Awake and alert, GCS 15, oriented to person, place, time, and situation. Cranial nerves II-XII grossly intact. Motor strength 5/5 in all extremities. Sensory grossly intact. Cerebellar exam normal. Normal gait. Psych: Awake, alert, with orientation to person, place and time. Behavior, mood, and affect are within normal limits. 21:50 Skin: 4 mm x 4 mm area of redness on the right medial ankle consistent with resolving folliculitis/pimple. No intervention required.. Vital Signs: 21:52 BP 155 / 59; Pulse 65; Resp 16; Temp 97.7; Pulse Ox 97% on R/A; Weight 79.83 kg; Height pf1 5 ft. 4 in. ; Pain 0/10; 21:52 Body Mass Index 30.21 (79.83 kg, 162.56 cm) pf1 21:52 Pain Scale: Adult pf1 MDM: 21:51 Data reviewed: vital signs, nurses notes, old medical records. ED course: 57-year-old sp3 female with this area of erythema on the right ankle. There is no sloughing and no signs of ongoing infection. No intervention required in the ED at this time and she will follow-up with her PCP.. 21:52 Patient medically screened. sp3 Administered Medications: No medications were administered Disposition Summary: 07/15/23 21:52 Discharge Ordered Notes: Location: Home sp3 Condition: Stable sp3 Diagnosis - Dry skin/rash sp3 Followup: sp3 - With: Private Physician - When: Upon discharge from the Emergency Department - Reason: Continuance of care Discharge Instructions: - Discharge Summary Sheet sp3 - Rash, Adult sp3 Forms: - Medication Reconciliation Form sp3 - Thank You Letter sp3 - Antibiotic Education sp3 - Prescription Opioid Use sp3 - Patient Portal Instructions sp3 - Leadership Thank You Letter sp3 Signatures: Sanam Harrison MD MD sp3 Ana Hinton RN RN pf1
--- NOTE | 2023-07-15 22:04 | ER ---
Nurse's Notes [facility] Name: Sunita Donohue Age: 57 yrs Sex: Female : 1965 Arrival Date: 07/15/2023 Time: 21:27 Bed 12 Private MD: Gene Lee Diagnosis: Dry skin/rash Presentation: 07/15 21:52 Chief complaint: Patient states: sore to right medial ankle,onset 3 days. No redness pf1 noted or swelling. Patient denies any itching. 21:52 Coronavirus screen: Vaccine status: Patient reports receiving the 2nd dose of the covid pf1 vaccine. pfizere Client denies travel out of the [place] in the last 14 days. At this time, the client does not indicate any symptoms associated with coronavirus-19. Ebola Screen: Patient negative for fever greater than or equal to 101.5 degrees Fahrenheit, and additional compatible Ebola Virus Disease symptoms. Initial Sepsis Screen: Does the patient meet any 2 criteria? No. Patient's initial sepsis screen is negative. Does the patient have a suspected source of infection? No. Patient's initial sepsis screen is negative. Risk Assessment: Do you want to hurt yourself or someone else? Patient reports no desire to harm self or others. 21:52 Method Of Arrival: Wheelchair pf1 21:52 Acuity: RIKI 5 pf1 Historical: - PMHx: 21:55 CHF; Gastroparesis; Hypertension; Diabetes - NIDDM; acid reflux (Diabetes - NIDDM); pf1 Chronic back pain; - PSHx: 21:55 Ligation of fallopian tube; back surgery; pf1 - Immunization history:: Adult Immunizations up to date, Client reports receiving the 2nd dose of the Covid vaccine, Last tetanus immunization: > 10 years ago Flu vaccine is not up to date. - Social history:: Smoking status: Patient denies any tobacco usage or history of. Patient/guardian denies using alcohol, street drugs. Screenin:00 [facility] ED Fall Risk Assessment (Adult) History of falling in the last 3 months, pf1 including since admission No falls in past 3 months (0 pts) Confusion or Disorientation No (0 pts) Intoxicated or Sedated No (0 pts) Impaired Gait No (0 pts) Mobility Assist Device Used No (0 pt) Altered Elimination No (0 pt) Score/Fall Risk Level 0 - 2 = Low Risk Oriented to surroundings, Maintained a safe environment, Educated pt \T\ family on fall prevention, incl call for assistance when getting out of bed, Assessed \T\ reinforced patient's understanding of fall precautions, Provided non-skid footwear, Hourly rounding (assess needs \T\ fall precautionary measures) done, Used ambulatory aids as needed (educated on \T\ assisted with), Used gait belt as appropriate. 22:00 Abuse screen: Denies threats or abuse. Nutritional screening: No deficits noted. pf1 Tuberculosis screening: No symptoms or risk factors identified. Assessment: 21:55 General: Appears in no apparent distress. comfortable, well groomed, well developed, pf1 Behavior is calm, cooperative, appropriate for age, quiet. 21:55 Pain: Denies pain. Neuro: No deficits noted. Level of Consciousness is awake, alert, pf1 obeys commands, Oriented to person, place, time, situation. Cardiovascular: No deficits noted. Capillary refill < 3 seconds Patient's skin is warm and dry. Respiratory: No deficits noted. Airway is patent Respiratory effort is even, unlabored, Respiratory pattern is regular, symmetrical. GI: No deficits noted. No signs and/or symptoms were reported involving the gastrointestinal system. : No deficits noted. No signs and/or symptoms were reported regarding the genitourinary system. EENT: No deficits noted. No signs and/or symptoms were reported regarding the EENT system. Derm: Reports small sore to right medial ankle region. Vital Signs: 21:52 BP 155 / 59; Pulse 65; Resp 16; Temp 97.7; Pulse Ox 97% on R/A; Weight 79.83 kg; Height pf1 5 ft. 4 in. ; Pain 0/10; 21:52 Body Mass Index 30.21 (79.83 kg, 162.56 cm) pf1 21:52 Pain Scale: Adult pf1 ED Course: 21:33 Patient arrived in ED. gm2 21:35 Gene Lee DO is Private Physician. gm2 21:40 Sanam Harrison MD is Attending Physician. sp3 21:55 Triage completed. pf1 21:55 Patient has correct armband on for positive identification. Bed in low position. Call pf1 light in reach. 21:55 Arm band placed on right wrist. pf1 22:00 Provided Education on: follow up. pf1 22:00 No provider procedures requiring assistance completed. pf1 22:00 Patient did not have IV access during this emergency room visit. pf1 Administered Medications: No medications were administered Medication: 22:00 VIS not applicable for this client. pf1 Outcome: 21:52 Discharge ordered by . sp3 22:03 Discharged to home via wheelchair, with family, pf1 22:03 Condition: unchanged 22:03 Discharge instructions given to patient, Instructed on discharge instructions, follow up and referral plans. Demonstrated understanding of instructions, follow-up care, 22:03 Patient left the ED. pf1 Signatures: Sanam Harrison MD MD sp3 Ana Hinton RN RN pf1 Denise King [facility]
[2023-07-15 22:22] VITALS: BP 155/59; TEMP 97.7; O2SAT 97
--- OUTSIDE RECORDS SUMMARY | 2023-07-15 22:27 | XMS REPORT | Continuity of Care Document ---
:1965 Author Organization [facility] t Address [address] [facility] [address] [place] [address] Care Team Providers Name Role Phone GENE LEE Primary Care Physician Unavailable RADU SULLIVAN Attending Clinician Unavailable MITCHELL AYERS Attending Clinician Unavailable REESE HERNANDEZ Attending Clinician Unavailable PEACE LEE Attending Clinician Unavailable GENE LEE Attending Clinician Unavailable MAGO BARRETT Attending Clinician Unavailable TAMARA ALAMO Attending Clinician Unavailable Jyoti RUDD, Chance Tolentino Attending Clinician Unavailable Marlee Botello MD Attending Clinician Unavailable Tamara Alamo MD Attending Clinician TAMARA ALAMO Attending Clinician Unavailable ZEKE SIMENTAL Attending Clinician Unavailable EDISON ASTUDILLO Attending Clinician Unavailable Natasha Chappell MD Attending Clinician Tonia RUDD, Fiona Jimenez Attending Clinician [phone] Freedom Steven Attending Clinician [phone] MARLEE BOTELLO Attending Clinician Unavailable ZOLTAN RAY Attending Clinician Unavailable Zoltan Ray MD Attending Clinician NATASHA CHAPPELL Attending Clinician Unavailable Radu Sullivan MD Attending Clinician Unavailable ROSARIO PEREZ Attending Clinician Unavailable Lizbet RUDD, Zac Argueta Attending Clinician MD BRENNAN Attending Clinician Unavailable LEA ANDERSON Attending Clinician Unavailable RADU SULLIVAN Attending Clinician Unavailable LAB90 Attending Clinician Unavailable STANFORD LANCE Attending Clinician Unavailable LAB39 Attending Clinician Unavailable RAJNI OSUNA Attending Clinician Unavailable KOLE BURRIS Attending Clinician Unavailable LESLI JONES Attending Clinician Unavailable RASHAAD MCKINNEY Attending Clinician Unavailable SONIA ROSA Attending Clinician Unavailable 1, OPTICAL COHERENCE TOMOGRAPHY Attending Clinician Unavailashwin Telles MD, Fabien Hudson Attending Clinician Doctor Unassigned, [place] Attending Clinician Unavailable JAMES ROSA Attending Clinician Unavailable MICHELLE SILVA Attending Clinician Unavailable Leonor RUDD, Malorie Garcia N Attending Clinician [phone] NEETU HUERTA Attending Clinician Unavailable SANTINO HURTADO Attending Clinician Unavailable MILADY PAZ Attending Clinician Unavailable MOLLY ROSS Attending Clinician Unavailable KAMILA FORDE Attending Clinician Unavailable DAYA SADLER Attending Clinician Unavailable RADHIKA SAENZ Attending Clinician Unavailable JACKSON RODRIGUEZ Attending Clinician Unavailable LAB45 Attending Clinician Unavailable RAGHAV TAYLOR Attending Clinician Unavailable LAB78 Attending Clinician Unavailable CORAZON LÓPEZ Attending Clinician Unavailable FRANCOIS SOLER Attending Clinician Unavailable LINWOOD MORTON Attending Clinician Unavailable Neftali Hernandez Attending Clinician NEFTALI HERNANDEZ Attending Clinician Unavailable Aliza Escobar Attending Clinician ALIZA ESCOBAR Attending Clinician Unavailable YAHAIRA SALCEDO Attending Clinician Unavailable Britney Guzmán Attending Clinician BRITNEY GUZMÁN Attending Clinician Unavailable JUANA RODRIGUEZ Attending Clinician Unavailable Juana Rodriguez DO Attending Clinician MUSA HOLDEN Attending Clinician Unavailable Musa Florian Attending Clinician Leandro Madrigal DO Attending Clinician Visit, [facility] Nurse Attending Clinician Unavailable MARYBEL CHAVIRA Attending Clinician Unavailable Pcp, Patient Does Not Have A Attending Clinician [phone] RADU SULLIVAN Admitting Clinician Unavailable MARLEE BOTELLO Admitting Clinician Unavailable ZOLTAN RAY Admitting Clinician Unavailable Tracey Garcia Admitting Clinician TRACEY GARCIA Admitting Clinician Unavailable Max Puentes Admitting Clinician MAX PUENTES Admitting Clinician Unavailable JUANA RODRIGUEZ Admitting Clinician Unavailable MARYBEL CHAVIRA Admitting Clinician Unavailable Payers Payer Name Policy Type Policy Number Effective Date Expiration Date S reji HUMANA MEDICARE [id number] 2021 ADV 00:00:00 [place]ID [place] [id number] 2023 00:00:00 HUMANA MEDICARE [id number] 2021 ADVANTAGE PPO 00:00:00 HUMANA PERFECTO LAUREANO 7 [id number] 2022 PLUS 33 D-SNP OA 00:00:00 MEDICAID-NHIC 6 [id number] 2021 00:00:00 KLEL LAUREANO PLS [id number] 2021 HMO 00:00:00 MEDICAID [place] [id number] 2022 00:00:00 WELLCARE FAROOQAMIE [id number] 2020 PLUS CLASSIC/VALUE 00:00:00 Problems Condition Condition Condition Status Onset Resolution Last Treating Co mments Source Name Details Category Date Date Treatment Clinician Date History of History of Disease Active 2022-09 Radha henry back back 09-09 [facility] surgery surgery 00:00: - 00 Externa l Other Other Disease Active 2022-09 Rachna specified specified 09-09 Seyb old anemias anemias 00:00: - 00 Externa l Type 2 Type 2 Disease Recurre 2022-[address] [facility] diabetes diabetes nce 0-28 [facility] mellitus mellitus 00:00: Medica l 00 Center Hematemesi Hematemesi Disease Active 2022-[address] [facility] 0-28 [facility] 00[facility] Center HTN HTN Disease Active 2022-[address] [facility] [address] (hypertens (hypertens 0-28 Karlie kes ion) ion) 00:00: Medical 00 Center GIB GIB Disease Active 2022-[address] [facility] [address] (gastroint (gastroint 0-28 Karlie kes estinal estinal 00:00: Medical bleeding) bleeding) 00 Cent er T12 T12 Disease Recurre 2022-[address] [facility] compressio compressio nce 0-17 Karlie kes n fracture n fracture 00:00: Me dical 00 Center 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 0-17 [facility] deformity deformity 00:00: Medi lamine of spine of spine 00 Center Spinal Spinal Disease Active 2022-09 Rachna stenosis, stenosis, 0-10 Seyb old thoracic thoracic 00:00: - region region 00 Externa l Cord Cord Disease Active 2022-09 Rachna compressio compressio 0-10 Se ybold n (multi n (multi 00:00: - HCC) HCC) 00 Externa l Class 1 Class 1 Disease Active 2022-09 Rachna obesity obesity 0-10 Seybold due to due to 00:00: - excess excess 00 Externa calories calories l with with serious serious comorbidit comorbidit y and body y and body mass index mass index (BMI) of (BMI) of 30.0 to 30.0 to 30.9 in 30.9 in adult adult Immunodefi Immunodefi Disease Active Radha henry ciency due ciency due 05-29 Se ybold to to 00:00: - conditions conditions 00 Ex terna classified classified l elsewhere elsewhere (multi (multi HCC) HCC) 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-29 Se ybold rative rative 00:00: - diabetic diabetic 00 Supervisor Mending a retinopath retinopath l y of both y of both eyes eyes associated associated with type with type 2 diabetes 2 diabetes mellitus mellitus (multi (multi HCC) HCC) Diabetic Diabetic Disease Active Kelse y macular macular 9-26 Seybold edema of edema of 00:00: - right eye right eye 00 Exte rna (multi (multi l HCC) HCC) DM type 2 DM type 2 Disease Active Jeromy sey with with 8-10 [facility]bold diabetic diabetic 00:00: - mixed mixed 00 Externa hyperlipid hyperlipid l emia emia (multi (multi HCC) HCC) Bladder Bladder Disease Active Overview: Trinh ey prolapse, prolapse, 5-24 Formattin S eybold female, female, 00:00: g of this - acquired acquired 00 note Supervisor Mending a might be l different from the original. Urology Dr. 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 5-09 Se ybold tis (multi tis (multi 00:00: - HCC) [facility]) 00 Externa l Blurry Blurry Disease Active Rachna vision, vision, 3-22 Seybold bilateral bilateral 00:00: - 00 Externa l Vitamin D Vitamin D Disease Active Jeromy sey deficiency deficiency 3-22 Se ybold 00:00: - 00 Externa l Elevated Elevated Disease Active Kelse y alkaline alkaline 3-15 Seybol d phosphatas phosphatas 00:00: - e level e level 00 Externa l Chronic Chronic Disease Active Rachna bilateral bilateral 1-11 Seyb old low back low back 00:00: - pain pain 00 Externa without without l sciatica sciatica Type 2 Type 2 Disease Active Rachna diabetes diabetes 1-11 Seybol d mellitus mellitus 00:00: - with with 00 Externa hyperglyce hyperglyce l dwight, with dwight, with long-term long-term current current use of use of insulin insulin (multi (multi HCC) HCC) Primary Primary Disease Active Rachna hypertensi hypertensi 1-11 Se ybold on on 00:00: - 00 Externa l Gastroesop Gastroesop Disease Active K elsey hageal hageal 1-11 Seybold reflux reflux 00:00: - disease disease 00 Externa without without l esophagiti esophagiti s s 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 -11 Seybol d residual residual 00:00: - deficit deficit 00 Externa l History of History of Disease Active K elsey spinal spinal 1- Seybold fracture fracture 00:00: - 00 Externa l History of History of Disease Active K elsey osteomyeli osteomyeli -11 Se ybold tis tis 00:00: - 00 Externa l POSSIBLE POSSIBLE Diagnosis Active 2021-092022-07-05 Memoria PERFORATED PERFORATED 0-21 21:52:00 l ESOPHAGUS ESOPHAGUS 00:00: Herm malorie Active 00 06/23/2022 [facility] [place] UPPER UPPER Diagnosis Active 2021-092022-06-30 Mem oria GASTROINTE GASTROINTE 0-19 21:46:00 l STINAL STINAL 00:00: Dayo BLEED;ESOP BLEED;ESOP 00 HAGEAL HAGEAL Active 06/21/2022 [facility] GI BLEED GI BLEED Diagnosis Active 2021-092022-06-21 Memoria UPPER UPPER 0-19 04:10:00 l Active 00:00: [place] 06/21/2022 [facility] [place] [facility] VOMITING VOMITING Diagnosis Active 2021-092022-07-04 Memoria BLOOD BLOOD 0-18 21:48:00 l Active 00:00: Dayo 06/20/[address] [place] [address] Nausea and Nausea and Disease Active 2019 U nivers vomiting vomiting 4-19 ity of 00:00: [place] [address] Medical Branch Acute Acute Disease Active Univers gastroente gastroente 4-18 it y of ritis ritis 00:00: [place] [address] Medical Branch ANTHONY (acute ANTHONY (acute Disease Active 2018- U nivers kidney kidney 3-19 ity of injury) injury) 00:00: [place] [address] Medical Branch DKA DKA Disease Active Univers [...] different from the original. 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 Yeast Yeast Disease Active Univers infection infection 06-01 ity of of the of the 00:00: [place] vagina vagina 00 Medical Branch Acute Acute Problem Active 2022-07-04 Memor ia posthemorr posthemorr 22:14:18 l hagic hagic Dyao anemia anemia (disorder) (disorder) Active Problem 07/04/2022 [facility] [place] Acute Acute Problem Active 2022-07-04 Memor ia urinary urinary 22:14:18 l tract tract Dayo infection infection (disorder) (disorder) Active Problem 07/04/2022 [facility] [place] Diabetes Diabetes Problem Active 2022-07-04 Memoria mellitus mellitus 22:14:18 l (disorder) (disorder) He rmann Active Problem 07/04/2022 [facility] [place] Hypokalemi Hypokalem Problem Active 2022-07-04 Memoria a ia 22:14:18 l (disorder) (disorder) He rmann Active Problem 07/04/2022 [facility] [place] Hypophosph Hypophosp Problem Active 2022-07-04 Memoria atemia hatemia 22:14:18 l (disorder) (disorder) He rmann Active Problem 07/04/2022 [facility] [place] [place] Moderate Moderate Problem Active 2022-07-04 Memoria protein-ca protein-ca 22:14:18 l christie christie Oshea malnutriti malnutriti on (weight on (weight for age for age 60-74% of 60-74% of standard) standard) (disorder) (disorder) Active Problem 07/04/2022 [facility] [place] GASTROINTE GASTROINT Diagnosis Active 2022-06-30 Memoria STINAL ESTINAL 21:46:00 l HEMORRHAGE HEMORRHAGE He rmann , , UNSPECIFIE UNSPECIFIE D D Active [facility] OTHER OTHER Diagnosis Active 2022-06-30 Mem oria SPECIFIED SPECIFIED 21:46:00 l DISEASE OF DISEASE OF He rmann ESOPHAGUS ESOPHAGUS Active [facility] ILLNESS, ILLNESS, Diagnosis Active 2022-06-21 Memoria UNSPECIFIE UNSPECIFIE 04:10:00 l D D Active [facility] Illness Illness Diagnosis 2022-06-25 Memoria (finding) (finding) 22:47:29 l Diagnosis Dayo 06/25/2022 [facility] Allergies, Adverse Reactions, Alerts Allergy Allergy Status Severity Reaction(s) Onset Inactive Treating Comm ents Source Name Type Date Date Clinician No Known No Known Active Memori a Medicati Medicati l on on [place] Allergie Allergie s s NO KNOWN Drug Active Univers ALLERGIE Class ity of S [facility] NO KNOWN Allergy Active [facility] Social History Social Habit Start Date Stop Date Quantity Comments Source Sexual orientation 2023-07-[address] [facility] 12:55:38 (finding) Medical Center History of tobacco Cigarette Smoker [facility] use Medical Center History SDOH [facility] Transport [facility]Med [facility] Gender identity [facility] Alcohol intake 2023-07-02 2023-07-[address] Ramya es 00:00:00 00:00:00 non-drinker Medical Dorcas r (finding) History of Social 2023-07-02 2023-07-[address] [facility] function 00:00:00 00:00:00 Medical Center History SDOH 2023-06-20 2023-06-20 2 AUNDREA Moreno Transport Med 00:00:00 00:00:[address] Exposure to 2023-06-09 2023-06-19 Not sure AUNDREA Moreno SARS-CoV-2 (event) 00:00:00 06:50:00 [facility] Cigarettes smoked 2023-06-18 2023-06-[address] [facility] current (pack per 00:00:00 00:00:00 Medical Center day) - Reported Tobacco use and 2023-06-18 2023-06-18 Sm[address]eless [address] [facility] exposure 00:00:00 00:00:00 non-user Medical Center Education - What 2023-06-12 2023-06-12 High school Rachna Castañeda - is the highest 00:00:00 00:00:00 graduate External level of school you have completed or the highest degree you have received? Social History 2022-06-21 2022-06-21 [facility] Olegario javid 08:35:01 08:35:01 Sex [birth year] At [birth year] F AUNDREA Strongs 00:00:00 00:00:00 [facility] Smoking Status Start Date Stop Date Source Ex-smoker 2023-06-18 00:00:00 2023-06-18 00:00:00 [facility] Never smoked tobacco Rachna betancourt - External Tobacco smoking status 2022-06-21 08:34:33 Darvin Oshea Medications Ordered Filled Start Stop Current Ordering Indication Dosage Frequency Signature Comments Components Source Medication Medication Date Date Medication? Clinician (SIG) Name Name Tramadol 2022-09 Yes 50mg [id number] Take 1 K elsey HCl 09-09 [id number] tablet (50 Sey bold (ULTRAM) 50 15:03: 3D mg total) - MG oral 29 by mouth Externa Tablet every 8 l hours as needed for pain. BD Veo 2022-09- No USE Rachna Insulin 09-09 DIRECTED 4 Seybo ld Syringe U/F 14:57: 00:00 TIMES - 31G X 15 :00 DAILY Externa 15" 0.3 NEEDED l ML does not apply Misc ASPIRIN 81 2022-09- No 1{tbl} Take 1 Ke lsey OR 09-09 tablet by Seybold 14:57: 00:00 mouth - 11 :00 daily Externa l Insulin 2022-09 Yes [id number] 40U Inject 40 K elsey Glargine, 2 -07 units into Se ybold Unit Dial, 00:00: the skin - (Toujeo Max 00 daily. Supervisor Mending a SoloStar) l 300 UNIT/ML subcutaneou s Solution Pen-injecto r Insulin 2022-09- No [id number] 6U Inject 6 K elsey Glargine, 2 09-09 units into S eybold Unit Dial, 00:00: 00:00 the skin - (Toujeo Max 00 :00 daily. Supervisor Mending a SoloStar) l 300 UNIT/ML subcutaneou s Solution Pen-injecto r glipiZIDE 5 2022-09- No 5mg Take 1 Jeromy sey MG oral 09-08 tablet (5 Seybol d Tablet 00:00: 00:00 mg total) - 00 :00 by mouth Externa daily l (before a meal). Gabapentin 2022-09 Yes 300mg Take 1 Trinh ey 300 MG oral 1-02 capsule Seybo ld Capsule 12:39: (300 mg - 10 total) by Externa mouth 3 l times daily. Gabapentin 2022-09 Yes 300mg Take 1 Trinh ey 300 MG oral 1-02 capsule Seybo ld Capsule 12:39: (300 mg - 10 total) by Externa mouth 3 l times daily. Baclofen 10 2022-09 Yes 10mg Take 1 Trinh ey MG oral 1-02 tablet (10 Seybol d Tablet 12:38: mg total) - 55 by mouth 3 Externa times l daily. Baclofen 10 2022-09 Yes 10mg Take 1 Trinh ey MG oral 1-02 tablet (10 Seybol d Tablet 12:38: mg total) - 55 by mouth 3 Externa times l daily. Ondansetron 2022-09 Yes 4mg [id number] Take 1 Racnha (ZOFRAN) 4 - [id number] tablet (4 Seybold MG oral 12:38: 3D mg total) - TABLET 29 by mouth Externa DISPERSIBLE every 8 l hours as needed for nausea. ASPIRIN 81 2022-09 Yes 1{tbl} Take 1 Jeromy sey OR -02 tablet by Seybold 12:38: mouth - 29 daily Externa l Ondansetron 2022-09 Yes 4mg [id number] Take 1 Rachna (ZOFRAN) 4 - [id number] tablet (4 Seybold MG oral 12:38: 3D mg total) - TABLET 29 by mouth Externa DISPERSIBLE every 8 l hours as needed for nausea. atorvastati 2022-09 Yes 40mg QD Take [address] [facility] n (LIPITOR) 1-02 tablet (40 Karlie kes 40 MG 12:03: mg total) Medical tablet 18 by mouth Center daily. pantoprazol 2022-09 Yes 40mg QD Take [address] [facility] [facility] e 1-02 tablet (40 [facility] (PROTONIX) 12:03: mg total) Me dical 40 MG 18 by mouth Center tablet daily. folic acid 2022-09 Yes 1mg QD Take 1 [facility]I S t (FOLVITE) 1 - tablet (1 Ramya es MG tablet 12:03: mg total) Med ical 18 by mouth Center daily. atorvastati 2022-09 Yes 40mg QD Take [address] [facility] n (LIPITOR) 1-02 tablet (40 Karlie kes 40 MG 12:03: mg total) Medical tablet 18 by mouth Center daily. pantoprazol 2022-09 Yes 40mg QD Take [address] [facility] e 1-02 tablet (40 [facility] (PROTONIX) 12:03: mg total) Me dical 40 MG 18 by mouth Center tablet daily. folic acid 2022-09 Yes 1mg QD Take 1 [facility] t (FOLVITE) 1 -02 tablet (1 Ramya es MG tablet 12:03: mg total) Med ical 18 by mouth Center daily. atorvastati 2022-09 Yes 40mg QD Take [address] [facility] n (LIPITOR) 1-02 tablet (40 Karlie kes 40 MG 12:03: mg total) Medical tablet 18 by mouth Center daily. pantoprazol 2022-09 Yes 40mg QD Take [address] [facility] [facility] e 1-02 tablet (40 [facility] (PROTONIX) 12:03: mg total) Me dical 40 MG 18 by mouth Center tablet daily. folic acid 2022-09 Yes 1mg QD Take 1 [facility] t (FOLVITE) 1 1-02 tablet (1 Ramya es MG tablet 12:03: mg total) Med ical 18 by mouth Center daily. insulin 2022-09- Yes 5U Inject 5 [facility] t lispro 09-04 12-02 Units [facility] (HumaLOG) 00:00: 23:59 subcutaneo M edical 100 unit/mL 00 :00 usly 3 Center injection (three) times daily before meals for 30 days Medium dose insulin sliding scale. If BS is greater than 400, give 12 units and call physician. insulin NPH 2022-09- Yes 15U Inject [address] (HumuLIN N) 09-04 12-02 Units [facility] 100 unit/mL 00:00: 23:59 subcutaneo Medical injection 00 :00 usly 2 Center (two) times daily before meals for 30 days Use as directed. insulin 2022-09- Yes 5U Inject 5 [facility] t lispro 09-04 12-02 Units [facility] (HumaLOG) 00:00: 23:59 subcutaneo M edical 100 unit/mL 00 :00 usly 3 Center injection (three) times daily before meals for 30 days Medium dose insulin sliding scale. If BS is greater than 400, give 12 units and call physician. insulin NPH 2022-09- Yes 15U Inject [address] (HumuLIN N) 09-04 12-02 Units [facility] 100 unit/mL 00:00: 23:59 subcutaneo Medical injection 00 :00 usly 2 Center (two) times daily before meals for 30 days Use as directed. insulin 2022-09- Yes 5U Inject 5 [facility] t lispro 09-04 12-02 Units [facility] (HumaLOG) 00:00: 23:59 subcutaneo M edical 100 unit/mL 00 :00 usly 3 Center injection (three) times daily before meals for 30 days Medium dose insulin sliding scale. If BS is greater than 400, give 12 units and call physician. insulin NPH 2022-09- Yes 15U Inject [address] (HumuLIN N) 09-04 12-02 Units [facility] 100 unit/mL 00:00: 23:59 subcutaneo Medical injection 00 :00 usly 2 Center (two) times daily before meals for 30 days Use as directed. Insulin 2022-09- No 15U Inject 15 Trinh ey NPH, 09-04 units into ybold Human,, 00:00: 00:00 the skin - Isophane, 00 :00 in the Externa 100 UNIT/ML morning l subcutaneou and 15 s units in Suspension the evening. Inject before meals. insulin NPH 2022-09- No Use as [facility] (HumuLIN N) 09-03 directed. Karlie kes 100 unit/mL 00:00: 00:00 Medic al injection 00 :00 Center insulin NPH 2022-09- No Use as [facility] (HumuLIN N) 09-03 directed. Karlie kes 100 unit/mL 00:00: 00:00 Medic al injection 00 :00 Center insulin NPH 2022-09- No Use as [facility] (HumuLIN N) 09-03 directed. Karlie kes 100 unit/mL 00:00: 00:00 Medic al injection 00 :00 Center lisinopriL 2022-09- No 40mg QD Take [address] [facility] (PRINIVIL,Z 0-30 10-30 tablet (40 L ukes ESTRIL) 40 08:42: 00:00 mg total) M edical MG tablet 54 :00 by mouth Center daily. aspirin 81 2022-09- No 81mg QD Take [address] MG EC 0-30 10-30 tablet (81 [facility] tablet 08:42: 00:00 mg total) Medic al 54 :00 by mouth Center daily. lisinopriL 2022-09- No 40mg QD Take [address] [facility] (PRINIVIL,Z 0-30 10-30 tablet (40 L ukes ESTRIL) 40 08:42: 00:00 mg total) M edical MG tablet 54 :00 by mouth Center daily. aspirin 81 2022-09- No 81mg QD Take [address] MG EC 0-30 10-30 tablet (81 [facility] tablet 08:42: 00:00 mg total) Medic al 54 :00 by mouth Center daily. lisinopriL 2022-09- No 40mg QD Take [address] [facility] (PRINIVIL,Z 0-30 10-30 tablet (40 L ukes ESTRIL) 40 08:42: 00:00 mg total) M edical MG tablet 54 :00 by mouth Center daily. aspirin 81 2022-09 No 81mg QD Take [address] [facility] MG EC 07-02 tablet (81 [facility] tablet 08:42: 00:00 mg total) Medic al 54 :00 by mouth Center daily. acetaminoph 2022-09 No 1000mg 1,000 mg, Univers en 06-30 Oral, ity of (TYLENOL) 11:30: 10:24 ONCE, 1 [place] tablet 00 :00 dose, On Medical 1,000 mg [facility] 06/30/23 at 0630, Routine vancomycin 2022-09 No 15mg/kg 1,250 mg Univers 1,250 mg in 06-30 (rounded ity of NaCl 0.9% 10:30: 11:16 from [place] () 250 mL 00 :00 1,177.5 mg Me dical VIAL-MATE = 15 mg/kg Bran ch IV ?78.5 kg), piggyback IV Piggyback, ONCE, 1 dose, On 06/30/23 at 0530, Administer over 90 Minutes, 250 mL
Reas on for Anti-Infec tive: Documented Infection& lt;br>Docu mented Infection Site: Urine
D uration of Therapy: Other (see Comments) ceFEPIme 2022-09 No 1000mg 1,000 mg, U nivers (MAXIPIME) 06-30 IV ity of injection 09:45: 09:46 Piggyback, [place] 1,000 mg 00 :00 ONCE, 1 Medical dose, On Branch [facility] 06/30/23 at 0445, LISA
Re ason for Anti-Infec tive: Documented Infection< br>Documen delaney Infection Site: Wound
D uration of Therapy: Other (see Comments) pantoprazol 2022-09 No 80mg 80 mg, IV Univers e 06-30 Push, ity of (PROTONIX) 09:00: 08:47 ONCE, 1 Farooq as 80 mg in 00 :00 dose, On Medical NaCl 0.9% [facility] (NS) 20 mL 06/30/23 syringe at 0400, Administer over 2 Minutes, 20 mL iopamidol 2022-09- No [id number] 100mL 100 mL, Univers (ISOVUE 0-28 10-28 Intravenou ity o f 370-500 mL) 06:00: 06:00 s, ONCE, 1 [place] injection 00 :00 dose, On Medica l 100 mL Sat Branch 06/30/23 at 0100, Routine Lidocaine 4 2022-09- Yes 2{patch Place 2 Rachna % apply 0-26 12-26 } patches Seybold externally 00:00: 05:59 onto the - Patch 00 :00 skin every Externa 24 hours. l Sennosides- 2022-09- Yes 2{tbl} Take 2 K elsey Docusate 0-26 12-26 tablets by Seyb old Sodium 00:00: 05:59 mouth - 8.6-50 MG 00 :00 daily with Exte rna oral Tablet lunch. l lidocaine 2022-09- Yes 2{patch Q24H Place [address] (LIDODERM) 0-26 12-25 } patches [facility] 4 % patch 00:00: 23:59 onto the Med ical 00 :00 skin daily Center for 60 days Apply to back at site of pain. Do not place directly over surgical sites. lidocaine 2022-09- Yes 2{patch Q24H Place [address] (LIDODERM) 0-26 12-25 } patches [facility] 4 % patch 00:00: 23:59 onto the Med ical 00 :00 skin daily Center for 60 days Apply to back at site of pain. Do not place directly over surgical sites. lidocaine 2022-09- Yes 2{patch Q24H Place [address] (LIDODERM) 0-26 12-25 } patches [facility] 4 % patch 00:00: 23:59 onto the Med ical 00 :00 skin daily Center for 60 days Apply to back at site of pain. Do not place directly over surgical sites. Lidocaine 4 2022-09- No 2{patch Place 2 Rachna % apply 0-26 11-07 } patches [facility] externally 00:00: 00:00 onto the - Patch 00 :00 skin every Externa 24 hours. l Sennosides- 2022-09- No 2{tbl} Take 2 K elsey Docusate 0-26 11-07 tablets by Seyb old Sodium 00:00: 00:00 mouth - 8.6-50 MG 00 :00 daily with Exte rna oral Tablet lunch. l senna-docus 2022-09- No 2{tbl} Take [address] ate 0-26 10-30 tablets by [facility] (SENOKOT S) 00:00: 00:00 mouth Medi lamine 8.6-50 mg 00 :00 daily with Cent er per tablet lunch for 60 days Hold if more than 1 bowel movement per day or diarrhea. senna-docus 2022-09- No 2{tbl} Take [address] ate 0-26 10-30 tablets by [facility] (SENOKOT S) 00:00: 00:00 mouth Medi lamine 8.6-50 mg 00 :00 daily with Cent er per tablet lunch for 60 days Hold if more than 1 bowel movement per day or diarrhea. senna-docus 2022-09- No 2{tbl} Take [address] ate 0-26 10-30 tablets by [facility] (SENOKOT S) 00:00: 00:00 mouth Medi lamine 8.6-50 mg 00 :00 daily with Cent er per tablet lunch for 60 days Hold if more than 1 bowel movement per day or diarrhea. lidocaine 2022-09 No 2{patch Q24H Place [address] (LIDODERM) 0-26 10-25 } patches [facility] 4 % patch 00:00: 00:00 onto the Med ical 00 :00 skin daily Center for 60 days Apply to back at site of pain. Do not place directly over surgical sites.. senna-docus 2022-09- No 2{tbl} Take [address] ate 0-26 10-25 tablets by [facility] (SENOKOT S) 00:00: 00:00 mouth Medi lamine 8.6-50 mg 00 :00 daily with Cent er per tablet lunch for 60 days Hold if more than 1 bowel movement per day or diarrhea.. lidocaine 2022-09- No 2{patch Q24H Place [address] (LIDODERM) 0-26 10-25 } patches [facility] 4 % patch 00:00: 00:00 onto the Med ical 00 :00 skin daily Center for 60 days Apply to back at site of pain. Do not place directly over surgical sites.. senna-docus 2022-09- No 2{tbl} Take [address] ate 0-26 10-25 tablets by [facility] (SENOKOT S) 00:00: 00:00 mouth Medi lamine 8.6-50 mg 00 :00 daily with Cent er per tablet lunch for 60 days Hold if more than 1 bowel movement per day or diarrhea.. lidocaine 2022-09- No 2{patch Q24H Place [address] (LIDODERM) 0-26 10-25 } patches [facility] 4 % patch 00:00: 00:00 onto the Med ical 00 :00 skin daily Center for 60 days Apply to back at site of pain. Do not place directly over surgical sites.. senna-docus 2022-09- No 2{tbl} Take [address] ate 0-26 10-25 tablets by [facility] (SENOKOT S) 00:00: 00:00 mouth Medi lamine 8.6-50 mg 00 :00 daily with Cent er per tablet lunch for 60 days Hold if more than 1 bowel movement per day or diarrhea.. baclofen 2022-09- No 10mg [id number] Take [address] [facility] (LIORESAL) 0-25 10-25 [id number] tablet (10 [facility] 10 MG 21:51: 00:00 3D mg total) Medica l tablet 04 :00 by mouth 3 Center (three) times daily. baclofen 2022-09- No 10mg Q.[id number] Take [address] [facility] (LIORESAL) 0-25 10-25 [id number] tablet (10 [facility] 10 MG 21:51: 00:00 3D mg total) Medica l tablet 04 :00 by mouth 3 Center (three) times daily. baclofen 2022-09- No 10mg Q.[id number] Take [address] [facility] (LIORESAL) 0-25 10-25 [id number] tablet (10 [facility] 10 MG 21:51: 00:00 3D mg total) Medica l tablet 04 :00 by mouth 3 Center (three) times daily. gabapentin 2022-09- No 400mg Q.[id number] Take [address] [facility] (NEURONTIN) 0-25 10-25 [id number] capsule [facility] 400 MG 14:21: 00:00 3D (400 mg Medical capsule 54 :00 total) by Center mouth 3 (three) times daily. glipiZIDE 2022-09- No [facility]mg Take 1 [facility] (GLUCOTROL[facility] 0-25 10-25 tablet (5 Karlie kes 5 MG tablet 14:21: 00:00 mg total) Medical 54 :00 by mouth Center daily with dinner. insulin 2022-09- No QD Inject [facility] glargine 0-25 10-25 subcutaneo [facility] U-300 conc 14:21: 00:00 usly daily Medical ([place] 54 :00 42 units. Center [facility] U-300 Insulin) 300 unit/mL (1.5 mL) syringe traMADoL 2022-09 No 50mg Take [address] [facility] (ULTRAM) 50 0-25 10-25 tablet (50 L ukes mg tablet 14:21: 00:00 mg total) Me dical 54 :00 by mouth Center every 6 (six) hours as needed for Pain. gabapentin 2022-09 No 400mg Q.[id number] Take [address] [facility] (NEURONTIN) 0-25 10-25 [id number] capsule [facility] 400 MG 14:21: 00:00 3D (400 mg Medical capsule 54 :00 total) by Center mouth 3 (three) times daily. glipiZIDE 2022-09 No 5mg Take 1 [facility] (GLUCOTROL) 0-25 10-25 tablet (5 Karlie kes 5 MG tablet 14:21: 00:00 mg total) Medical 54 :00 by mouth Center daily with dinner. insulin 2022-09- No QD Inject [facility] glargine 0-25 10-25 subcutaneo [facility] U-300 conc 14:21: 00:00 usly daily Medical ([place] 54 :00 42 units. Center [facility] U-300 Insulin) 300 unit/mL (1.5 mL) syringe traMADoL 2022-09 No 50mg Take [address] [facility] (ULTRAM) 50 0-25 10-25 tablet (50 L ukes mg tablet 14:21: 00:00 mg total) Me dical 54 :00 by mouth Center every 6 (six) hours as needed for Pain. gabapentin 2022-09- No 400mg Q.[id number] Take [address] [facility] (NEURONTIN) 0-25 10-25 [id number] capsule [facility] 400 MG 14:21: 00:00 3D (400 mg Medical capsule 54 :00 total) by Center mouth 3 (three) times daily. glipiZIDE 2022-09- No 5mg Take 1 [facility] (GLUCOTROL) 0-25 10-25 tablet (5 Karlie kes 5 MG tablet 14:21: 00:00 mg total) Medical 54 :00 by mouth Center daily with dinner. insulin 2022-09- No QD Inject [facility] glargine 0-25 10-25 subcutaneo [facility] U-300 conc 14:21: 00:00 usly daily Medical ([place] 54 :00 42 units. Center [facility] U-300 Insulin) 300 unit/mL (1.5 mL) syringe traMADoL 2022-09- No 50mg Take [address] [facility] (ULTRAM) 50 0-25 10-25 tablet (50 L [facility] mg tablet 14:21: 00:00 mg total) Me dical 54 :00 by mouth Center every 6 (six) hours as needed for Pain. Menthol-Met 2022-09- Yes 1g Apply 1 g Rachna hyl 0-25 12-25 topically [facility] Salicylate 00:00: 05:59 in the - (Muscle 00 :00 morning Externa Rub) 10-15 and 1 g in l % apply the externally evening. Cream Apply before meals. Apply to areas of pain. gabapentin 2022-09- Yes 300mg Q.[id number] Take [address] [facility] (NEURONTIN) 0-25 12-24 [id number] capsule [facility] 300 MG 00:00: 23:59 3D (300 mg Medical capsule 00 :00 total) by Center mouth 3 (three) times daily for 60 days .. gabapentin 2022-09- Yes 300mg Q.[id number] Take [address] [facility] (NEURONTIN) 0-25 12-24 [id number] capsule [facility] 300 MG 00:00: 23:59 3D (300 mg Medical capsule 00 :00 total) by Center mouth 3 (three) times daily for 60 days .. gabapentin 2022-09- Yes 300mg Q.[id number] Take [address] [facility] (NEURONTIN) 0-25 12-24 [id number] [facility] 300 MG 00:00: 23:59 3D (300 mg Medical capsule 00 :00 total) by Center mouth 3 (three) times daily for 60 days .. Bisacodyl 2022-09- Yes 10mg QD Apply 1 Trinh ey 10 MG 0-25 11-25 suppositor [facility] rectal 00:00: 05:59 y (10 mg - Suppository 00 :00 total) Supervisor Mending a rectally l daily as needed for constipati on. Insulin 2022-09- Yes 1U Inject 1 Kelse y Lispro 0-25 11-25 unit into [facility] (HUMALOG) 00:00: 05:59 the skin 4 - 100 unit/mL 00 :00 times Externa SQ daily l injection (before meals and nightly) Medium dose sliding scale. Polyethylen 2022-09- Yes 17g Take 17 g Rachna e Glycol 0-25 -25 by mouth 2 Seyb old 3350 17 g 00:00: 05:59 times - oral Pack 00 :00 daily. Externa l baclofen 2022-09- Yes 10mg Q.[id number] Take [address] [facility] (LIORESAL) 0-25 11-24 [id number] tablet (10 [facility] 10 MG 00:00: 23:59 3D mg total) Medica l tablet 00 :00 by mouth 3 Center (three) times daily for 30 days Hold dose if pt is very drowsy or lethargic. bisacodyL 2022-09- Yes 10mg Place [address] [facility] (DULCOLAX) 0-25 11-24 suppositor Karlie kes 10 mg 00:00: 23:59 y (10 mg Medical suppository 00 :00 total) Center rectally daily as needed (constipat ion or if no bowel movent in the prior 3 days.) for up to 30 days .. insulin 2022-09- Yes 1U [address] [facility] syringe-nee 0-25 11-24 Miscellane L ukes dle U-100 00:00: 23:59 ous route Me dical 0.3 mL 31 00 :00 4 (four) Center gauge x times 15/64" Syrg daily as needed for up to 30 days As needed for insulin administra tion.. polyethylen 2022-09- Yes 17g Q.5D Take [address] [facility] e glycol 0-25 11-24 by mouth 2 [facility] (GLYCOLAX) 00:00: 23:59 (two) Medic al 17 gram 00 :00 times Center packet daily for 30 days Hold if more than 1 bowel movement per day or diarrhea. baclofen 2022-09- Yes 10mg Q.[id number] Take [address] [facility] (LIORESAL) 0-25 11-24 [id number] tablet (10 [facility] 10 MG 00:00: 23:59 3D mg total) Medica l tablet 00 :00 by mouth 3 Center (three) times daily for 30 days Hold dose if pt is very drowsy or lethargic. bisacodyL 2022-09- Yes 10mg Place [address] [facility] (DULCOLAX) 0-25 -24 suppositor Karlie kes 10 mg 00:00: 23:59 y (10 mg Medical suppository 00 :00 total) Center rectally daily as needed (constipat ion or if no bowel movent in the prior 3 days.) for up to 30 days .. insulin 2022-09- Yes 1U [address] [facility] syringe-nee 0-25 11-24 Miscellane L ukes dle U-100 00:00: 23:59 ous route Me dical 0.3 mL 31 00 :00 4 (four) Center gauge x times 15/64" Syrg daily as needed for up to 30 days As needed for insulin administra tion.. polyethylen 2022-09- Yes 17g Q.5D Take [address] [facility] e glycol 0-25 11-24 by mouth 2 [facility] (GLYCOLAX) 00:00: 23:59 (two) Medic al 17 gram 00 :00 times Center packet daily for 30 days Hold if more than 1 bowel movement per day or diarrhea. baclofen 2022-09- Yes 10mg Q.[id number] Take [address] [facility] (LIORESAL) 0-25 11-24 [id number] tablet (10 [facility] 10 MG 00:00: 23:59 3D mg total) Medica l tablet 00 :00 by mouth 3 Center (three) times daily for 30 days Hold dose if pt is very drowsy or lethargic. bisacodyL 2022-09- Yes 10mg Place [address] [facility] (DULCOLAX) 0-07-27 suppositor Karlie kes 10 mg 00:00: 23:59 y (10 mg Medical suppository 00 :00 total) Center rectally daily as needed (constipat ion or if no bowel movent in the prior 3 days.) for up to 30 days .. insulin 2022-09- Yes 1U [address] [facility] syringe-nee 0-07-27 Miscellane L ukes dle U-100 00:00: 23:59 ous route Me dical 0.3 mL 31 00 :00 4 (four) Center gauge x times 15/64" Syrg daily as needed for up to 30 days As needed for insulin administra tion.. polyethylen 2022-09- Yes 17g Q.5D Take [address] [facility] e glycol 0-07-27 by mouth 2 [facility] (GLYCOLAX) 00:00: 23:59 (two) Medic al 17 gram 00 :00 times Center packet daily for 30 days Hold if more than 1 bowel movement per day or diarrhea. Acetaminoph 2022-09- Yes 650mg Take 2 Ke lsey en 0-28 07-09 tablets [facility] (TYLENOL) 00:00: 05:59 (650 mg - 325 MG oral 00 :00 total) by Ext azeb Tablet mouth 3 l tablet times daily x14 days. acetaminoph 2022-09- No 650mg Q.[id number] Take [address] [facility] en 0-25 - [id number] tablets [facility] (TYLENOL) 00:00: 23:59 3D (650 mg Medi lamine 325 MG 00 :00 total) by Center tablet mouth 3 (three) times daily for 14 days .. acetaminoph 2022-09- No 650mg Q.[id number] Take [address] [facility] en 0-25 07-11 [id number] tablets [facility] (TYLENOL) 00:00: 23:59 3D (650 mg Medi lamine 325 MG 00 :00 total) by Center tablet mouth 3 (three) times daily for 14 days .. acetaminoph 2022-09- No 650mg Q.[id number] Take [address] [facility] en 0-07-11 [id number] tablets [facility] (TYLENOL) 00:00: 23:59 3D (650 mg Medi lamine 325 MG 00 :00 total) by Center tablet mouth 3 (three) times daily for 14 days .. Acetaminoph 2022-09- No 650mg Take 2 Ke lsey en 07-10 tablets [facility] (TYLENOL) 00:00: 00:00 (650 mg - 325 MG oral 00 :00 total) by Ext azeb Tablet mouth 3 l tablet times daily x14 days. Bisacodyl 2022-09- No 10mg QD Apply 1 Trinh ey 10 MG 07-10 suppositor [facility] rectal 00:00: 00:00 y (10 mg - Suppository 00 :00 total) Supervisor Mending a rectally l daily as needed for constipati on. Insulin 2022-09- No 1U Inject 1 Kelse y Lispro 07-10 unit into [facility] (HUMALOG) 00:00: 00:00 the skin 4 - 100 unit/mL 00 :00 times Externa SQ daily l injection (before meals and nightly) Medium dose sliding scale. Menthol-Met 2022-09- No 1g Apply 1 g Rachna hyl -07-10 topically [facility] Salicylate 00:00: 00:00 in the - (Muscle 00 :00 morning Externa Rub) 10-15 and 1 g in l % apply the externally evening. Cream Apply before meals. Apply to areas of pain. Polyethylen 2022-09- No 17g Take 17 g Rachna e Glycol -07-10 by mouth 2 Seyb old 3350 17 g 00:00: 00:00 times - oral Pack 00 :00 daily. Externa l insulin 2022-09- No 0U Inject [facility] lispro 0-25 07-05 0-12 [facility] (HumaLOG) 00:00: 00:00 subcutaneo M edical 100 unit/mL 00 :00 usly 4 Center injection (four) times daily before meals and nightly for 30 days Medium dose insulin sliding scale. If BS is greater than 400, give 12 units and call physician. insulin 2022-09- No 0U Inject [facility] lispro 0-25 11-02 0-12 [facility] (HumaLOG) 00:00: 00:00 subcutaneo M edical 100 unit/mL 00 :00 usly 4 Center injection (four) times daily before meals and nightly for 30 days Medium dose insulin sliding scale. If BS is greater than 400, give 12 units and call physician. insulin 2022-09- No 0U Inject [facility] lispro 0-25 11-02 0-12 [facility] (HumaLOG) 00:00: 00:00 subcutaneo M edical 100 unit/mL 00 :00 usly 4 Center injection (four) times daily before meals and nightly for 30 days Medium dose insulin sliding scale. If BS is greater than 400, give 12 units and call physician. hydrALAZINE 2022-09- No 10mg Take [address] [facility] (APRESOLINE 0-07-04 tablet (10 L ukes ) 10 MG 00:00: 00:00 mg total) Medi lamine tablet 00 :00 by mouth 3 Center (three) times daily as needed (Systolic blood pressure over 170.) for up to 30 days .. oxyCODONE 2022-09 No 10mg Take 1 [facility] (OXY-IR) 10 0-07-04 tablet (10 L ukes mg tablet 00:00: 00:00 mg total) Me dical 00 :00 by mouth Center every 6 (six) hours as needed (see instructio ns) for up to 21 days Take 1 tablet (10 mg) PRN for severe pain. Take 0.5 tablet (5mg) PRN for moderate pain. Hold dose if pt is very drowsy or is lethargic. Max Daily Amount: 40 mg insulin 2022-09- No 6U QD Inject 6 [facility] glargine 0-25 11- Units [facility] U-300 conc 00:00: 00:00 [facility] ([place] Max 00 :00 usly Center U-300 nightly [facility]) for 30 300 unit/mL days .. (3 mL) syringe hydrALAZINE 2022-09 No 10mg Take [address] [facility] (APRESOLINE 0-25 11-01 tablet (10 L ukes ) 10 MG 00:00: 00:00 mg total) Medi lamine tablet 00 :00 by mouth 3 Center (three) times daily as needed (Systolic blood pressure over 170.) for up to 30 days .. oxyCODONE 2022-09- No 10mg Take 1 [facility] (OXY-IR) 10 0-25 11-01 tablet (10 L ukes mg tablet 00:00: 00:00 mg total) Me dical 00 :00 by mouth Center every 6 (six) hours as needed (see instructio ns) for up to 21 days Take 1 tablet (10 mg) PRN for severe pain. Take 0.5 tablet (5mg) PRN for moderate pain. Hold dose if pt is very drowsy or is lethargic. Max Daily Amount: 40 mg insulin 2022-09- No 6U QD Inject 6 [facility] glargine 0-25 11-01 [facility] conc [facility] Max 00 :00 usly Center U-300 nightly [facility]) for 30 300 unit/mL days .. (3 mL) syringe hydrALAZINE 2022-09- No 10mg Take [address] [facility] (APRESOLINE 0-25 11-01 tablet (10 L ukes ) 10 MG 00:00: 00:00 mg total) Medi lamine tablet 00 :00 by mouth 3 Center (three) times daily as needed (Systolic blood pressure over 170.) for up to 30 days .. oxyCODONE 2022-09- No 10mg Take 1 [facility] (OXY-IR) 10 0-25 11- tablet (10 L ukes mg tablet 00:00: 00:00 mg total) Me dical 00 :00 by mouth Center every 6 (six) hours as needed (see instructio ns) for up to 21 days Take 1 tablet (10 mg) PRN for severe pain. Take 0.5 tablet (5mg) PRN for moderate pain. Hold dose if pt is very drowsy or is lethargic. Max Daily Amount: 40 mg insulin 2022-09- No 6U QD Inject 6 [facility] glargine 0-25 11-01 [facility] U-300 conc 00:00[facility] 00[facility] ([place] Max 00 :00 usly Center U-300 nightly [facility]Star) for 30 300 unit/mL days .. (3 mL) syringe methyl 2022-09- No 1g Apply 1 g [facility] salicylate- 0-25 10-30 topically Karlie kes menthol 00:00: 00:00 2 (two) Medica l 15-10 % 00 :00 times Center Crea daily before meals for 60 days Apply to areas of pain. Do not apply directly to surgical wounds. ondansetron 2022-09- No 4mg Take [address] [facility] (ZOFRAN-ODT 0-25 10-30 tablet (4 Kalrie kes ) 4 MG 00:00: 00:00 mg total) Medic al disintegrat 00 :00 by mouth Cent er ing tablet every 8 (eight) hours as needed (nausea or vomitting) for up to 30 days .. methyl 2022-09- No 1g Apply 1 g [facility] salicylate- 0-25 10-30 topically Karlie kes menthol 00:00: 00:00 2 (two) Medica l 15-10 % 00 :00 times Center Crea daily before meals for 60 days Apply to areas of pain. Do not apply directly to surgical wounds. ondansetron 2022-09- No 4mg Take [address] [facility] (ZOFRAN-ODT 0-25 10-30 tablet (4 Karlie kes ) 4 MG 00:00: 00:00 mg total) Medic al disintegrat 00 :00 by mouth Cent er ing tablet every 8 (eight) hours as needed (nausea or vomitting) for up to 30 days .. methyl 2022-09- No 1g Apply 1 g [facility] salicylate- 0-25 10-30 topically Karlie kes menthol 00:00: 00:00 2 (two) Medica l 15-10 % 00 :00 times Center Crea daily before meals for 60 days Apply to areas of pain. Do not apply directly to surgical wounds. ondansetron 2022-09- No 4mg Take [address] [facility] (ZOFRAN-ODT 0-25 10-30 tablet (4 Karlie kes ) 4 MG 00:00: 00:00 mg total) Medic al disintegrat 00 :00 by mouth Cent er ing tablet every 8 (eight) hours as needed (nausea or vomitting) for up to 30 days .. baclofen 2022-09- No 10mg Q.[id number] Take [address] [facility] (LIORESAL) 0-25 10-25 [id number] tablet (10 [facility] 10 MG 00:00: 00:00 3D mg total) Medica l tablet 00 :00 by mouth 3 Center (three) times daily for 30 days Hold dose if pt is very drowsy or lethargic. . gabapentin 2022-09- No 300mg Q.[id number] Take [address] [facility] (NEURONTIN) 0-25 10-25 [id number] capsule [facility] 300 MG 00:00: 00:00 3D (300 mg Medical capsule 00 :00 total) by Center mouth 3 (three) times daily for 60 days. hydrALAZINE 2022-09- No 10mg Take [address] [facility] (APRESOLINE 0-25 10-25 tablet (10 L ukes ) 10 MG 00:00: 00:00 mg total) Medi lamine tablet 00 :00 by mouth 3 Center (three) times daily as needed (Systolic blood pressure over 170.) for up to 30 days . bisacodyL 2022-09- No 10mg Place [address] [facility] (DULCOLAX) 0-25 10-25 suppositor Karlie kes 10 mg 00:00: 00:00 y (10 mg Medical suppository 00 :00 total) Center rectally daily as needed (constipat ion or if no bowel movent in the prior 3 days.) for up to 30 days. insulin 2022-09- No 0U Inject [facility] lispro 0-25 10-25 0-12 [facility] (HumaLOG) 00:00: 00:00 subcutaneo M edical 100 unit/mL 00 :00 usly 4 Center injection (four) times daily before meals and nightly for 30 days Medium dose insulin sliding scale. If BS is greater than 400, give 12 units and call physician. . insulin 2022-09- No 1U [address] [facility] syringe-nee 0-25 10-25 Miscellane L ukes dle U-100 00:00: 00:00 ous route Me dical 0.3 mL 31 00 :00 4 (four) Center gauge x times 15/64" Syrg daily as needed for up to 30 days As needed for insulin administra tion. polyethylen 2022-09 No 17g Q.5D Take [address] [facility] e glycol 0-25 10-25 by mouth 2 [facility] (GLYCOLAX) 00:00: 00:00 (two) Medic al 17 gram 00 :00 times Center packet daily for 30 days Hold if more than 1 bowel movement per day or diarrhea.. methyl 2022-09- No 1g Apply 1 g [facility] salicylate- 0-25 10-25 topically Karlie kes menthol 00:00: 00:00 2 (two) Medica l 15-10 % 00 :00 times Center Crea daily before meals for 60 days Apply to areas of pain. Do not apply directly to surgical wounds.. ondansetron 2022-09 No 4mg Take [address] [facility] (ZOFRAN-ODT 0-25 10-25 tablet (4 Karlie kes ) 4 MG 00:00: 00:00 mg total) Medic al disintegrat 00 :00 by mouth Cent er ing tablet every 8 (eight) hours as needed (nausea or vomitting) for up to 30 days. oxyCODONE 2022-09 No 10mg Take 1 [facility] (OXY-IR) 10 0-25 10-25 tablet (10 L ukes mg tablet 00:00: 00:00 mg total) Me dical 00 :00 by mouth Center every 6 (six) hours as needed (see instructio ns) for up to 21 days Take 1 tablet (10 mg) PRN for severe pain. Take 0.5 tablet (5mg) PRN for moderate pain. Hold dose if pt is very drowsy or is lethargic. . Max Daily Amount: 40 mg acetaminoph 2022-09 No 650mg Q.[id number] Take [address] [facility] en 0-25 10-25 [id number] tablets [facility] (TYLENOL) 00:00: 00:00 3D (650 mg Medi lamine 325 MG 00 :00 total) by Center tablet mouth 3 (three) times daily for 14 days. insulin 2022-09- No 6U QD Inject 6 [facility] glargine 0-25 10-25 [facility] U-300 conc 00:00: 00:00 subcutaneo Medical ([place] Max 00 :00 usly Center U-300 nightly [facility]) for 30 300 unit/mL days. (3 mL) syringe baclofen 2022-09- No 10mg Q.[id number] Take [address] [facility] (LIORESAL) 0-25 10-25 [id number] tablet (10 [facility] 10 MG 00:00: 00:00 3D mg total) Medica l tablet 00 :00 by mouth 3 Center (three) times daily for 30 days Hold dose if pt is very drowsy or lethargic. . gabapentin 2022-09- No 300mg Q.[id number] Take [address] [facility] (NEURONTIN) 0-25 10-25 [id number] capsule [facility] 300 MG 00:00: 00:00 3D (300 mg Medical capsule 00 :00 total) by Center mouth 3 (three) times daily for 60 days. hydrALAZINE 2022-09- No 10mg Take [address] [facility] (APRESOLINE 0-25 10-25 tablet (10 L ukes ) 10 MG 00:00: 00:00 mg total) Medi lamine tablet 00 :00 by mouth 3 Center (three) times daily as needed (Systolic blood pressure over 170.) for up to 30 days . bisacodyL 2022-09- No 10mg Place [address] [facility] (DULCOLAX) 0-25 10-25 suppositor Karlie kes 10 mg 00:00: 00:00 y (10 mg Medical suppository 00 :00 total) Center rectally daily as needed (constipat ion or if no bowel movent in the prior 3 days.) for up to 30 days. insulin 2022-09- No 0U Inject [facility] lispro 0-25 10-25 0-12 [facility] (HumaLOG) 00:00: 00:00 subcutaneo M edical 100 unit/mL 00 :00 usly 4 Center injection (four) times daily before meals and nightly for 30 days Medium dose insulin sliding scale. If BS is greater than 400, give 12 units and call physician. . insulin 2022-09- No 1U [address] [facility] syringe-nee 0-25 10-25 Miscellane L ukes dle U-100 00:00: 00:00 ous route Me dical 0.3 mL 31 00 :00 4 (four) Center gauge x times 15/64" Syrg daily as needed for up to 30 days As needed for insulin administra tion. polyethylen 2022-09- No 17g Q.5D Take [address] [facility] e glycol 0-25 10-25 by mouth 2 [facility] (GLYCOLAX) 00:00: 00:00 (two) Medic al 17 gram 00 :00 times Center packet daily for 30 days Hold if more than 1 bowel movement per day or diarrhea.. methyl 2022-09 No 1g Apply 1 g [facility] salicylate- 0-25 10-25 topically Karlie kes menthol 00:00: 00:00 2 (two) Medica l 15-10 % 00 :00 times Center Crea daily before meals for 60 days Apply to areas of pain. Do not apply directly to surgical wounds.. ondansetron 2022-09- No 4mg Take [address] [facility] (ZOFRAN-ODT 0-25 10-25 tablet (4 Karlie kes ) 4 MG 00:00: 00:00 mg total) Medic al disintegrat 00 :00 by mouth Cent er ing tablet every 8 (eight) hours as needed (nausea or vomitting) for up to 30 days. oxyCODONE 2022-09- No 10mg Take 1 [facility] (OXY-IR) 10 0-25 10-25 tablet (10 L ukes mg tablet 00:00: 00:00 mg total) Me dical 00 :00 by mouth Center every 6 (six) hours as needed (see instructio ns) for up to 21 days Take 1 tablet (10 mg) PRN for severe pain. Take 0.5 tablet (5mg) PRN for moderate pain. Hold dose if pt is very drowsy or is lethargic. . Max Daily Amount: 40 mg acetaminoph 2022-09- No 650mg Q.[id number] Take [address] [facility] en 0-25 10-25 [id number] tablets [facility] (TYLENOL) 00:00: 00:00 3D (650 mg Medi lamine 325 MG 00 :00 total) by Center tablet mouth 3 (three) times daily for 14 days. insulin 2022-09- No 6U QD Inject 6 [facility] glargine 0-25 10-25 [facility] U-300 conc 00:00: 00[facility] ([place] Max 00 :00 usly Center U-300 nightly [facility]) for 30 300 unit/mL days. (3 mL) syringe baclofen 2022-09- No 10mg Q.[id number] Take [address] [facility] (LIORESAL) 0-25 10-25 [id number] tablet (10 [facility] 10 MG 00:00: 00:00 3D mg total) Medica l tablet 00 :00 by mouth 3 Center (three) times daily for 30 days Hold dose if pt is very drowsy or lethargic. . gabapentin 2022-09- No 300mg Q.[id number] Take [address] [facility] (NEURONTIN) 0-25 10-25 [id number] capsule [facility] 300 MG 00:00: 00:00 3D (300 mg Medical capsule 00 :00 total) by Center mouth 3 (three) times daily for 60 days. hydrALAZINE 2022-09- No 10mg Take [address] [facility] (APRESOLINE 0-25 10-25 tablet (10 L ukes ) 10 MG 00:00: 00:00 mg total) Medi lamine tablet 00 :00 by mouth 3 Center (three) times daily as needed (Systolic blood pressure over 170.) for up to 30 days . bisacodyL 2022-09- No 10mg Place [address] [facility] (DULCOLAX) 0-25 10-25 suppositor Karlie kes 10 mg 00:00: 00:00 y (10 mg Medical suppository 00 :00 total) Center rectally daily as needed (constipat ion or if no bowel movent in the prior 3 days.) for up to 30 days. insulin 2022-09- No 0U Inject [facility] lispro 0-25 10-25 0-12 [facility] (Huma[facility]) 00:[facility]: 00[facility]00 [facility] unit/mL 00 :00 usly 4 Center injection (four) times daily before meals and nightly for 30 days Medium dose insulin sliding scale. If BS is greater than 400, give 12 units and call physician. . insulin 2022-09- No 1U [address] [facility] syringe-nee 0-25 10-25 Miscellane L ukes dle U-100 00:00: 00:00 ous route Me dical 0.3 mL 31 00 :00 4 (four) Center gauge x times 15/64" Syrg daily as needed for up to 30 days As needed for insulin administra tion. polyethylen 2022-09- No 17g Q.5D Take [address] [facility] glycol 0-25 10-25 by mouth 2 [facility] (GLYCOLAX) 00:00: 00:00 (two) Medic al 17 gram 00 :00 times Center packet daily for 30 days Hold if more than 1 bowel movement per day or diarrhea.. methyl 2022-09- No 1g Apply 1 [facility] salicylate- 0-25 10-25 topically Karlie kes menthol 00:00: 00:00 2 (two) Medica l 15-10 % 00 :00 times Center Crea daily before meals for 60 days Apply to areas of pain. Do not apply directly to surgical wounds.. ondansetron 2022-09- No 4mg Take [address] [facility] (ZOFRAN-ODT 0-25 10-25 tablet (4 Karlie kes ) 4 MG 00:00: 00:00 mg total) Medic al disintegrat 00 :00 by mouth Cent er ing tablet every 8 (eight) hours as needed (nausea or vomitting) for up to 30 days. oxyCODONE 2022-09- No 10mg Take [facility] (OXY-IR) 10 0-25 10-25 tablet (10 L ukes mg tablet 00:00: 00:00 mg total) Me dical 00 :00 by mouth Center every 6 (six) hours as needed (see instructio ns) for up to 21 days Take 1 tablet (10 mg) PRN for severe pain. Take 0.5 tablet (5mg) PRN for moderate pain. Hold dose if pt is very drowsy or is lethargic. . Max Daily Amount: 40 mg acetaminoph 2022-09- No 650mg Q.[id number] Take [address] [facility] en 0-25 10-25 [id number] tablets [facility] (TYLENOL) 00:00: 00:00 3D (650 mg Medi lamine 325 MG 00 :00 total) by Center tablet mouth 3 (three) times daily for 14 days. insulin 2022-09- No 6U QD Inject 6 [facility] glargine 0-25 10-25 [facility] U-300 conc 00:00: 00:00 subcutaneo Medical ([place]jeo Max 00 :00 usly Center U-300 nightly SoloStar) for 30 300 unit/mL days. (3 mL) syringe glipiZIDE 2022-09 Yes 5mg Take [address] [facility] (GLUCOTROL) 0-18 tablet (5 Ramya es 5 MG tablet 09:30: mg total) M edical 44 by mouth Center daily with dinner. atorvastati 2022-09 Yes 40mg QD Take [address] [facility] (LIPITOR) 0-17 tablet (40 Karlie kes 40 MG 21:51: mg total) Medical tablet 28 by mouth Center daily. pantoprazol 2022-09 Yes 40mg QD Take [address] [facility] 0-17 tablet (40 [facility] (PROTONIX) 21:51: mg total) Me dical 40 MG 28 by mouth Center tablet daily. baclofen 2022-09 Yes 10mg Q.[id number] Take [address] (LIORESAL) 0-17 [id number] tablet (10 [facility] 10 MG 21:51: 3D mg total) Medical tablet 28 by mouth 3 Center (three) times daily. folic acid 2022-09 Yes 1mg QD Take 1 [facility] (FOLVITE) 1 0-17 tablet (1 Ramya es MG tablet 21:51: mg total) Med ical 28 by mouth Center daily. gabapentin 2022-09 Yes 400mg Q.[id number] Take [address] [facility] (NEURONTIN) 0-17 [id number] capsule [facility] 400 MG 21:51: 3D (400 mg Medical capsule 28 total) by Center mouth 3 (three) times daily. insulin 2022-09 Yes QD Inject [facility] glargine 0-17 [facility]aneo [facility] U-300 conc 21:51: usly daily M edical (Toujeo 28 42 units. Center [facility]Star U-300 Insulin) 300 unit/mL (1.5 mL) syringe traMADoL 2022-09 Yes 50mg Take [address] [facility] (ULTRAM) 50 0-17 tablet (50 Karlie kes mg tablet 21:51: mg total) Med ical 28 by mouth Center every 6 (six) hours as needed for Pain. lisinopriL 2022-09 Yes 40mg QD Take 1 [facility] (PRINIVIL,Z 0-17 tablet (40 Karlie kes ESTRIL) 40 21:51: mg total) Me dical MG tablet 28 by mouth Center daily. Bevacizumab 2022-09- No [id number] 1.25mg Rachna (AVASTIN) 0-16 10-16 Seybold 100 mg/4 mL 15:00: 14:54 - - Physician 00 :00 Externa Administere l d (J9035) Bevacizumab 2022-09- No [id number] 1.25mg 1.25 mg, Rachna (AVASTIN) 0-16 06-18 Physician Seyb old 100 mg/4 mL 15:00: 14:54 Administer - - Physician 00 :00 ed, ONCE, Ext azeb Administere 1 dose, On l d (J9035) 06/18/23 at 1000 ASPIRIN 81 2022-09 Yes 1{tbl} Take 1 Jeromy sey OR 0-16 tablet by Seybold 09:40: mouth - 27 daily Externa l ASPIRIN 81 2022-09 Yes 1{tbl} Take 1 Jeromy sey OR 0-10 tablet by Seybold 14:53: mouth - 34 daily Externa l Insulin 2022-09 Yes [id number] 42U Inject 42 K elsey Glargine, 2 0-10 units into Se ybold Unit Dial, 00:00: the skin - (Toujeo Max 00 daily. Supervisor Mending a SoloStar) l 300 UNIT/ML subcutaneou s Solution Pen-injecto r Insulin 2022-09 Yes [id number] 42U Inject 42 K elsey Glargine, 2 0-10 units into Se ybold Unit Dial, 00:00: the skin - (Toujeo Max 00 daily. Supervisor Mending a SoloStar) l 300 UNIT/ML subcutaneou s Solution Pen-injecto r glipiZIDE 5 2022-09 Yes [id number] 5mg Take 1 Rachna MG oral 0-10 tablet (5 Seybold Tablet 00:00: mg total) - 00 by mouth Externa daily l (before a meal). Insulin 2022-09 Yes [id number] 42U Inject 42 K elsey Glargine, 2 0-10 units into Se ybold Unit Dial, 00:00: the skin - (Toujeo Max 00 daily. Supervisor Mending a SoloStar) l 300 UNIT/ML subcutaneou s Solution Pen-injecto r Insulin 2022-09- No [id number] 42U Inject 42 Rachna Glargine, 2 0-10 11-07 units into S eybold Unit Dial, 00:00: 00:00 the skin - (Toujeo Max 00 :00 daily. Supervisor Mending a SoloStar) l 300 UNIT/ML subcutaneou s Solution Pen-injecto r ASPIRIN 81 Yes 1{tbl} Take 1 Jeromy sey OR 9-26 tablet by Seybold 09:39: mouth - 30 daily Externa l Continuous Yes [id number] Check with Rachna Blood Gluc 9-26 dexcom Seybold Identity Management Developer 00:00: sensors. - (Dexcom G7 00 Externa Identity Management Developer) l does not apply Device Continuous 0 Yes [id number] Change K elsey Blood Gluc 9-26 every 10 Seybo ld Sensor 00:00: days. - (Dexcom G7 00 Externa Sensor) l does not apply Misc Insulin Yes [id number] 38U Inject 38 K elsey Glargine, 2 9-26 units into Se ybold Unit Dial, 00:00: the skin - (Toujeo Max 00 daily. Supervisor Mending a SoloStar) l 300 UNIT/ML subcutaneou s Solution Pen-injecto r Continuous 0 Yes [id number] Check with Rachna Blood Gluc 9-26 dexcom Seybold Identity Management Developer 00:00: sensors. - (Dexcom G7 00 Externa Identity Management Developer) l does not apply Device Continuous 2022-0 Yes [id number] Change K elsey Blood Gluc 9-26 every 10 Seybo ld Sensor 00:00: days. - (Dexcom G7 00 Externa Sensor) l does not apply Misc Continuous 2022-0 Yes [id number] Check with Rachna Blood Gluc 9-26 dexcom Seybold Identity Management Developer 00:00: sensors. - (Dexcom G7 00 Externa Identity Management Developer) l does not apply Device Continuous 3-0 Yes [id number] Change K elsey Blood Gluc 9- every 10 Seybo ld Sensor 00:00: days. - (Dexcom G7 00 Externa Sensor) l does not apply Misc Continuous 2022-0 Yes [id number] Check with Rachna Blood Gluc 05-29 dexcom Seybold Identity Management Developer 00:00: sensors. - (Dexcom G7 00 Externa Identity Management Developer) l does not apply Device Continuous 2022-0 Yes [id number] Change K elsey Blood Gluc - every 10 Seybo ld Sensor 00:00: days. - (Dexcom G7 00 Externa Sensor) l does not apply Misc Continuous 2022-0 Yes [id number] Check with Rachna Blood Gluc 05-29 dexcom Seybold Identity Management Developer 00:00: sensors. - (Dexcom G7 00 Externa Identity Management Developer) l does not apply Device Continuous 2022-0 Yes [id number] Change K elsey Blood Gluc 9- every 10 Seybo ld Sensor 00:00: days. - (Dexcom G7 00 Externa Sensor) l does not apply Misc Insulin 2022-0 3- No [id number] 38U Inject 38 Rachna Glargine, 2 05-29 10-10 units into S eybold Unit Dial, 00:00: 00:00 the skin - (Toujeo Max 00 :00 daily. Supervisor Mending a SoloStar) l 300 UNIT/ML subcutaneou s Solution Pen-injecto r Continuous 2022- No [id number] Check with Rachna Blood Gluc -05-29 dexcom Seybol d Identity Management Developer 00:00: 00:00 sensors. - (Dexcom G7 00 :00 Externa Identity Management Developer) l does not apply Device Continuous 3-0 2023- No [id number] Change Rachna Blood Gluc -29 05- every 10 Seyb old Sensor 00:00: 00:00 days. - (Dexcom G7 00 :00 Externa Sensor) l does not apply Misc Nitrofurant 2022-0 Yes 100mg Take 1 Jeromy sey oin Monohyd 9-22 capsule Seybo ld Macro 100 00:00: (100 mg - MG oral 00 total) by Externa Capsule mouth 2 l times daily. Nitrofurant 2023-0 2023- No 100mg Take 1 Ke lsey oin Monohyd 05-25 10-10 capsule Seyb old Macro 100 00:00: 00:00 (100 mg - MG oral 00 :00 total) by Externa Capsule mouth 2 l times daily. Baclofen Yes 2 tablets K elsey MG oral - p.o. 3 Seybold Tablet 00:00: times - 00 daily as Externa needed l muscle spasms and pain. Baclofen 10 Yes 2 tablets K elsey MG oral - p.o. 3 Seybold Tablet 00:00: times - 00 daily as Externa needed l muscle spasms and pain. Baclofen Yes 2 tablets K elsey MG oral 05-24 p.o. 3 Seybold Tablet 00:00: times - 00 daily as Externa needed l muscle spasms and pain. Bevacizumab 2022- No [id number] 1.25mg Rachna (AVASTIN) 05-23 Seybold 100 mg/4 mL 15:00: 15:12 - - Physician 00 :00 Externa Administere l d (J9035) Bevacizumab 2022- No [id number] 1.25mg 1.25 mg, Rachna (AVASTIN) 05-23 Physician Seyb old 100 mg/4 mL 15:00: 15:12 Administer - - Physician 00 :00 ed, ONCE, Ext azeb Administere 1 dose, On l d (J9035) Sun05/23/23 at 1000 Bevacizumab 2022- No [id number] 1.25mg Rachna (AVASTIN) 05-23 Seybold 100 mg/4 mL 15:00: 15:12 - - Physician 00 :00 Externa Administere l d (J9035) Bevacizumab 2022- No [id number] 1.25mg 1.25 mg, Rachna (AVASTIN) 05-23 Physician Seyb old 100 mg/4 mL 15:00: 15:12 Administer - - Physician 00 :00 ed, ONCE, Ext azeb Administere 1 dose, On l d (J9035) Sun05/23/23 at 1000 ASPIRIN 81 Yes 1{tbl} Take 1 Jeromy sey OR 9-20 tablet by Seybold 10:10: mouth - 36 daily Externa l ASPIRIN 81 2022-0 Yes 1{tbl} Take 1 Jeromy sey OR 9-20 tablet by Seybold 10:10: mouth - 36 daily Externa l Gabapentin 2023-0 Yes [id number] 400mg Take 1 Rachna 400 MG oral 9-18 capsule Seybo ld Capsule 00:00: (400 mg - 00 total) by Externa mouth 3 l times daily. Gabapentin 2023-0 Yes [id number] 400mg Take 1 Rachna 400 MG oral 9-18 capsule Seybo ld Capsule 00:00: (400 mg - 00 total) by Externa mouth 3 l times daily. Gabapentin 2023-0 Yes [id number] 400mg Take 1 Rachna 400 MG oral 9-18 capsule Seybo ld Capsule 00:00: (400 mg - 00 total) by Externa mouth 3 l times daily. Gabapentin 2023-0 Yes [id number] 400mg Take 1 Rachna 400 MG oral 9-18 capsule Seybo ld Capsule 00:00: (400 mg - 00 total) by Externa mouth 3 l times daily. Gabapentin 3-0 Yes [id number] 400mg Take 1 Rachna 400 MG oral 9-18 capsule Seybo ld Capsule 00:00: (400 mg - 00 total) by Externa mouth 3 l times daily. ASPIRIN 81 2022-0 Yes 1{tbl} Take 1 Jeromy sey OR 9-07 tablet by Seybold 10:31: mouth - 56 daily Externa l ASPIRIN 81 2022-0 Yes 1{tbl} Take 1 Jeromy sey OR 9-07 tablet by Seybold 10:31: mouth - 56 daily Externa l ESTRADIOL 2022-0 Yes Apply a Kelse y VAGINAL 0.1 9-07 finger tip Se ybold MG/GM 00:00: amount to - vaginal 00 the Externa Cream vaginal l 3x/week. ESTRADIOL 2022-0 Yes Apply a Kelse y VAGINAL 0.1 9-07 finger tip Se ybold MG/GM 00:00: amount to - vaginal 00 the Externa Cream vaginal l 3x/week. ESTRADIOL 2023-0 Yes Apply a Kelse y VAGINAL 0.1 9-07 finger tip Se ybold MG/GM 00:00: amount to - vaginal 00 the Externa Cream vaginal l 3x/week. ESTRADIOL Yes Apply a Kelse y VAGINAL 0.1 9-07 finger tip Se ybold MG/GM 00:00: amount to - vaginal 00 the Externa Cream vaginal l 3x/week. ESTRADIOL 2022-0 Yes Apply a Kelse y VAGINAL 0.1 9-07 finger tip Se ybold MG/GM 00:00: amount to - vaginal 00 the Externa Cream vaginal l 3x/week. ESTRADIOL 2022-0 Yes Apply a Kelse y VAGINAL 0.1 9-07 finger tip Se ybold MG/GM 00:00: amount to - vaginal 00 the Externa Cream vaginal l 3x/week. ESTRADIOL 2022-0 Yes Apply a Kelse y VAGINAL 0.1 9-07 finger tip Se ybold MG/GM 00:00: amount to - vaginal 00 the Externa Cream vaginal l 3x/week. Aspirin-Emeterio 2022- No Take by Myron scott icylamide-C 05-08 mouth Seybol d affeine (BC 10:48: 00:00 - HEADACHE 25 :00 Externa POWDER OR) l Acetaminoph 2022- No 500mg Q.25D Take 1 K elsey en 05-0805 tablet Seybold (TYLENOL) 10:48: 00:00 (500 mg - 500 MG oral 25 :00 total) by Ext azeb Tablet mouth l every 6 hours as needed for pain. Insulin Yes 30U Inject 30 Kelse y Glargine, 2 9-05 units into Se ybold Unit Dial, 00:00: the skin - (Toujeo Max 00 daily. Supervisor Mending a SoloStar) l 300 UNIT/ML subcutaneou s Solution Pen-injecto r Insulin Yes 30U Inject 30 Kelse y Glargine, 2 9-05 units into Se ybold Unit Dial, 00:00: the skin - (Toujeo Max 00 daily. Supervisor Mending a SoloStar) l 300 UNIT/ML subcutaneou s Solution Pen-injecto r Insulin Yes 30U Inject 30 Kelse y Glargine, 2 9-05 units into Se ybold Unit Dial, 00:00: the skin - (Toujeo Max 00 daily. Supervisor Mending a SoloStar) l 300 UNIT/ML subcutaneou s Solution Pen-injecto r Insulin 0 Yes 30U Inject 30 Kelse y Glargine, 2 9-05 units into Se ybold Unit Dial, 00:00: the skin - (Toujeo Max 00 daily. Supervisor Mending a SoloStar) l 300 UNIT/ML subcutaneou s Solution Pen-injecto r Insulin 0 Yes 30U Inject 30 Kelse y Glargine, 2 9-05 units into Se ybold Unit Dial, 00:00: the skin - (Toujeo Max 00 daily. Supervisor Mending a SoloStar) l 300 UNIT/ML subcutaneou s Solution Pen-injecto r Insulin 2022- No 30U Inject 30 Trinh ey Glargine, 2 9-05 09-26 units into S eybold Unit Dial, 00:00: 00:00 the skin - (Toujeo Max 00 :00 daily. Supervisor Mending a SoloStar) l 300 UNIT/ML subcutaneou s Solution Pen-injecto r Cefpodoxime 0 2022- No 200mg Take 1 Ke lsey Proxetil 04-29 09-05 tablet Seybold 200 MG oral 00:00: 00:00 (200 mg - Tablet 00 :00 total) by Externa mouth 2 l times daily for 7 days. Bevacizumab 0 2022- No [id number] 1.25mg Rachna (AVASTIN) 04-25 Seybold 100 mg/4 mL 15:00: 14:51 - - Physician 00 :00 Externa Administere l d (J9035) Bevacizumab 2022-0 2022- No [id number] 1.25mg 1.25 mg, Rachna (AVASTIN) 04-25 Physician Seyb old 100 mg/4 mL 15:00: 14:51 Administer - - Physician 00 :00 ed, ONCE, Ext azeb Administere 1 dose, On l d (J9035) 04/25/23 at 1000 ASPIRIN 81 Yes 1{tbl} Take 1 Jeromy sey OR 04-25 tablet by Seybold 13:31: mouth - 49 daily Externa l Aspirin-Emeterio Yes Take by Jeromy sey icylamide-C 8-23 mouth Seybold affeine ( 13:31: - HEADACHE 49 Externa POWDER OR) l Acetaminoph 2023-0 Yes 500mg Q.25D Take 1 Ke lsey en 8-23 tablet Seybold (TYLENOL) 13:31: (500 mg - 500 MG oral 49 total) by Ext azeb Tablet mouth l every 6 hours as needed for pain. ASPIRIN 81 2022-0 Yes 1{tbl} Take 1 Jeromy sey OR 8-23 tablet by Seybold 13:31: mouth - 49 daily Externa l ASPIRIN 81 2022-0 Yes 1{tbl} Take 1 Jeromy sey OR 8-23 tablet by Seybold 11:31: mouth - 54 daily Externa l Aspirin-Emeterio 2022-0 Yes Take by Jeromy sey icylamide-C 8-23 mouth Seybold affeine ( 11:31: - HEADACHE 54 Externa POWDER OR) l Acetaminoph 2023-0 Yes 500mg Q.25D Take 1 Ke lsey en 8-23 tablet Seybold (TYLENOL) 11:31: (500 mg - 500 MG oral 54 total) by Ext azeb Tablet mouth l every 6 hours as needed for pain. ASPIRIN 81 2022-0 Yes 1{tbl} Take 1 Jeromy sey OR 8-23 tablet by Seybold 09:05: mouth - 50 daily Externa l Aspirin-Emeterio 2022-0 Yes Take by Jeromy sey icylamide-C 8-23 mouth Seybold affeine ( 09:05: - HEADACHE 50 Externa POWDER OR) l Acetaminoph 2023-0 Yes 500mg Q.25D Take 1 Ke lsey en 8-23 tablet Seybold (TYLENOL) 09:05: (500 mg - 500 MG oral 50 total) by Ext azeb Tablet mouth l every 6 hours as needed for pain. Insulin Pen 2022-0 Yes [id number] 1{each} 1 each by Rachna Needle (Pen 8-18 3 does not Seyb old [place]) 00:00: apply - 31G X 5 MM 00 route Externa does not daily l apply Misc Insulin Pen 2023-0 Yes [id number] 1{each} 1 each by Rachna Needle (Pen 8-18 3 does not Seyb old [place]) 00:00: apply - 31G X 5 MM 00 route Externa does not daily l apply Misc Insulin Pen 2023-0 Yes [id number] 1{each} 1 each by Rachna Needle (Pen 8-18 3 does not Seyb old [place]) 00:00: apply - 31G X 5 MM 00 route Externa does not daily l apply Misc Insulin Pen 2023-0 Yes [id number] 1{each} 1 each by Rachna Needle (Pen 8-18 3 does not Seyb old [place]) 00:00: apply - 31G X 5 MM 00 route Externa does not daily l apply Misc Insulin Pen 2023-0 Yes [id number] 1{each} 1 each by Rachna Needle (Pen 8-18 3 does not Seyb old [place]) 00:00: apply - 31G X 5 MM 00 route Externa does not daily l apply Misc Insulin Pen 2023-0 Yes [id number] 1{each} 1 each by Rachna Needle (Pen 8-18 3 does not Seyb old [place]) 00:00: apply - 31G X 5 MM 00 route Externa does not daily l apply Misc Insulin Pen 2023-0 Yes [id number] 1{each} 1 each by Rachna Needle (Pen 8-18 3 does not Seyb old [place]) 00:00: apply - 31G X 5 MM 00 route Externa does not daily l apply Misc Insulin Pen 2023-0 Yes [id number] 1{each} 1 each by Rachna Needle (Pen 8-18 3 does not Seyb old [place]) 00:00: apply - 31G X 5 MM 00 route Externa does not daily l apply Misc Insulin Pen 2023-0 Yes [id number] 1{each} 1 each by Rachna Needle (Pen 8-18 3 does not Seyb old [place]) 00:00: apply - 31G X 5 MM 00 route Externa does not daily l apply Misc Insulin Pen 2023-0 Yes [id number] 1{each} 1 each by Rachna Needle (Pen 8-18 3 does not Seyb old [place]) 00:00: apply - 31G X 5 MM 00 route Externa does not daily l apply Misc Insulin Pen 2023-0 Yes [id number] 1{each} 1 each by Rachna Needle (Pen 8-18 3 does not Seyb old [place]) 00:00: apply - 31G X 5 MM 00 route Externa does not daily l apply Misc Insulin Pen 2022-0 Yes [id number] 1{each} 1 each by Rachna Needle (Pen 8-18 3 does not Seyb old [place]) 00:00: apply - 31G X 5 MM 00 route Externa does not daily l apply Misc Insulin Pen 2022-0 Yes [id number] 1{each} 1 each by Rachna Needle (Pen 8-18 3 does not Seyb old [place]) 00:00: apply - 31G X 5 MM 00 route Externa does not daily l apply Misc Insulin 0 Yes [id number] 28U Inject 28 K elsey Glargine, 2 8-17 units into Se ybold Unit Dial, 00:00: the skin - (Toujeo Max 00 daily Externa SoloStar) l 300 UNIT/ML subcutaneou s Solution Pen-injecto r Insulin 0 Yes [id number] 28U Inject 28 K elsey Glargine, 2 8-17 units into Se ybold Unit Dial, 00:00: the skin - (Toujeo Max 00 daily Externa SoloStar) l 300 UNIT/ML subcutaneou s Solution Pen-injecto r Insulin 0 Yes [id number] 28U Inject 28 K elsey Glargine, 2 8-17 units into Se ybold Unit Dial, 00:00: the skin - (Toujeo Max 00 daily Externa SoloStar) l 300 UNIT/ML subcutaneou s Solution Pen-injecto r Insulin 2022-0 2022- No [id number] 28U Inject 28 Rachna Glargine, 2 8-17 09-05 units into S eybold Unit Dial, 00:00: 00:00 the skin - (Toujeo Max 00 :00 daily Externa SoloStar) l 300 UNIT/ML subcutaneou s Solution Pen-injecto r ASPIRIN 81 0 Yes 1{tbl} Take 1 Jeromy sey OR 8-10 tablet by Seybold 11:25: mouth - 33 daily Externa l Aspirin-Emeterio 0 Yes Take by Jeromy sey icylamide-C 8-10 mouth Seybold affeine (BC 11:25: - HEADACHE 33 Externa POWDER OR) l Acetaminoph 0 Yes 500mg Q.25D Take 1 Ke lsey en 8-10 tablet Seybold (TYLENOL) 11:25: (500 mg - 500 MG oral 33 total) by Ext azeb Tablet mouth l every 6 hours as needed for pain Atorvastati 0 Yes 40mg Take 1 Trinh ey n Calcium 8-03 tablet (40 Seyb old 40 MG oral 00:00: mg total) - Tablet 00 by mouth Externa at bedtime l Atorvastati 2022-0 Yes 40mg Take 1 Trinh ey n Calcium 8-03 tablet (40 Seyb old 40 MG oral 00:00: mg total) - Tablet 00 by mouth Externa at bedtime l Atorvastati 2022-0 Yes 40mg Take 1 Trinh ey n Calcium 8-03 tablet (40 Seyb old 40 MG oral 00:00: mg total) - Tablet 00 by mouth Externa at bedtime l Atorvastati 0 Yes 40mg Take 1 Trinh ey n Calcium 8-03 tablet (40 Seyb old 40 MG oral 00:00: mg total) - Tablet 00 by mouth Externa at bedtime l Atorvastati 0 Yes 40mg Take 1 Trinh ey n Calcium 8-03 tablet (40 Seyb old 40 MG oral 00:00: mg total) - Tablet 00 by mouth Externa at bedtime l Atorvastati 2022-0 Yes 40mg Take 1 Trinh ey n Calcium 8-03 tablet (40 Seyb old 40 MG oral 00:00: mg total) - Tablet 00 by mouth Externa at bedtime l Atorvastati 2022-0 Yes 40mg Take 1 Trinh ey n Calcium 8-03 tablet (40 Seyb old 40 MG oral 00:00: mg total) - Tablet 00 by mouth Externa at bedtime l Atorvastati 2022-0 Yes 40mg Take 1 Trinh ey n Calcium 8-03 tablet (40 Seyb old 40 MG oral 00:00: mg total) - Tablet 00 by mouth Externa at bedtime l Atorvastati 2022-0 Yes 40mg Take 1 Trinh ey n Calcium 8-03 tablet (40 Seyb old 40 MG oral 00:00: mg total) - Tablet 00 by mouth Externa at bedtime l Atorvastati 2022-0 Yes 40mg Take 1 Rtinh ey n Calcium 8-03 tablet (40 Seyb old 40 MG oral 00:00: mg total) - Tablet 00 by mouth Externa at bedtime l Atorvastati 2023-0 Yes 40mg Take 1 Trinh ey n Calcium 8-03 tablet (40 Seyb old 40 MG oral 00:00: mg total) - Tablet 00 by mouth Externa at bedtime l Atorvastati 2023-0 Yes 40mg Take 1 Trinh ey n Calcium 8-03 tablet (40 Seyb old 40 MG oral 00:00: mg total) - Tablet 00 by mouth Externa at bedtime l Atorvastati 2023-0 Yes 40mg Take 1 Trinh ey n Calcium 8-03 tablet (40 Seyb old 40 MG oral 00:00: mg total) - Tablet 00 by mouth Externa at bedtime l Atorvastati 2023-0 Yes 40mg Take 1 Trinh ey n Calcium 8-03 tablet (40 Seyb old 40 MG oral 00:00: mg total) - Tablet 00 by mouth Externa at bedtime l Folic Acid 2023-0 Yes [id number] 1mg Take 1 Rachna 1 MG oral 7-10 tablet (1 Seybo ld tablet 00:00: mg total) - 00 by mouth Externa daily l Pantoprazol 2023-0 Yes [id number] 40mg Take 1 Rachna e Sodium 40 7-10 tablet (40 Se ybold MG oral 00:00: mg total) - Tablet 00 by mouth Externa Delayed daily l Response Folic Acid 2023-0 Yes [id number] 1mg Take 1 Rachna 1 MG oral 7-10 tablet (1 Seybo ld tablet 00:00: mg total) - 00 by mouth Externa daily l Pantoprazol 2023-0 Yes [id number] 40mg Take 1 Rachna e Sodium 40 7-10 tablet (40 Se ybold MG oral 00:00: mg total) - Tablet 00 by mouth Externa Delayed daily l Response Folic Acid 2023-0 Yes [id number] 1mg Take 1 Rachna 1 MG oral 7-10 tablet (1 Seybo ld tablet 00:00: mg total) - 00 by mouth Externa daily l Pantoprazol 2023-0 Yes [id number] 40mg Take 1 Rachna e Sodium 40 7-10 tablet (40 Se ybold MG oral 00:00: mg total) - Tablet 00 by mouth Externa Delayed daily l Response Folic Acid 2023-0 Yes [id number] 1mg Take 1 Rachna 1 MG oral 7-10 tablet (1 Seybo ld tablet 00:00: mg total) - 00 by mouth Externa daily l Pantoprazol 2023-0 Yes [id number] 40mg Take 1 Rachna e Sodium 40 7-10 tablet (40 Se ybold MG oral 00:00: mg total) - Tablet 00 by mouth Externa Delayed daily l Response Folic Acid 2023-0 Yes [id number] 1mg Take 1 Rachna 1 MG oral 7-10 tablet (1 Seybo ld tablet 00:00: mg total) - 00 by mouth Externa daily l Pantoprazol 2023-0 Yes [id number] 40mg Take 1 Rachna e Sodium 40 7-10 tablet (40 Se ybold MG oral 00:00: mg total) - Tablet 00 by mouth Externa Delayed daily l Response Tramadol 3-0 Yes 50mg 1 tablet Kelse y HCl 7-10 (50 mg Seybold (ULTRAM) 50 00:00: total). - MG oral 00 Externa Tablet l Folic Acid 3-0 Yes [id number] 1mg Take 1 Rachna 1 MG oral 7-10 tablet (1 Seybo ld tablet 00:00: mg total) - 00 by mouth Externa daily l Pantoprazol 2023-0 Yes [id number] 40mg Take 1 Rachna e Sodium 40 7-10 tablet (40 Se ybold MG oral 00:00: mg total) - Tablet 00 by mouth Externa Delayed daily l Response Folic Acid 2023-0 Yes [id number] 1mg Take 1 Rachna 1 MG oral 7-10 tablet (1 Seybo ld tablet 00:00: mg total) - 00 by mouth Externa daily l Pantoprazol 2023-0 Yes [id number] 40mg Take 1 Rachna e Sodium 40 7-10 tablet (40 Se ybold MG oral 00:00: mg total) - Tablet 00 by mouth Externa Delayed daily l Response Folic Acid 2023-0 Yes [id number] 1mg Take 1 Rachna 1 MG oral 7-10 tablet (1 Seybo ld tablet 00:00: mg total) - 00 by mouth Externa daily l Pantoprazol 2023-0 Yes [id number] 40mg Take 1 Rachna e Sodium 40 7-10 tablet (40 Se ybold MG oral 00:00: mg total) - Tablet 00 by mouth Externa Delayed daily l Response Folic Acid 2023-0 Yes [id number] 1mg Take 1 Rachna 1 MG oral 7-10 tablet (1 Seybo ld tablet 00:00: mg total) - 00 by mouth Externa daily l Pantoprazol 2023-0 Yes [id number] 40mg Take 1 Rachna e Sodium 40 7-10 tablet (40 Se ybold MG oral 00:00: mg total) - Tablet 00 by mouth Externa Delayed daily l Response Folic Acid 2023-0 Yes [id number] 1mg Take 1 Rachna 1 MG oral 7-10 tablet (1 Seybo ld tablet 00:00: mg total) - 00 by mouth Externa daily l Pantoprazol 2023-0 Yes [id number] 40mg Take 1 Rachna e Sodium 40 7-10 tablet (40 Se ybold MG oral 00:00: mg total) - Tablet 00 by mouth Externa Delayed daily l Response Folic Acid 2023-0 Yes [id number] 1mg Take 1 Rachna 1 MG oral 7-10 tablet (1 Seybo ld tablet 00:00: mg total) - 00 by mouth Externa daily l Pantoprazol 2023-0 Yes [id number] 40mg Take 1 Rachna e Sodium 40 7-10 tablet (40 Se ybold MG oral 00:00: mg total) - Tablet 00 by mouth Externa Delayed daily l Response Folic Acid 2023-0 Yes [id number] 1mg Take 1 Rachna 1 MG oral 7-10 tablet (1 Seybo ld tablet 00:00: mg total) - 00 by mouth Externa daily l Pantoprazol 2023-0 Yes [id number] 40mg Take 1 Rachna e Sodium 40 7-10 tablet (40 Se ybold MG oral 00:00: mg total) - Tablet 00 by mouth Externa Delayed daily l Response Folic Acid 2023-0 Yes [id number] 1mg Take 1 Rachna 1 MG oral 7-10 tablet (1 Seybo ld tablet 00:00: mg total) - 00 by mouth Externa daily l Pantoprazol 2023-0 Yes [id number] 40mg Take 1 Rachna e Sodium 40 7-10 tablet (40 Se ybold MG oral 00:00: mg total) - Tablet 00 by mouth Externa Delayed daily l Response Folic Acid Yes [id number] 1mg Take 1 Rachna 1 MG oral 7-10 tablet (1 Seybo ld tablet 00:00: mg total) - 00 by mouth Externa daily l Pantoprazol Yes [id number] 40mg Take 1 Rachna e Sodium 40 7-10 tablet (40 Se ybold MG oral 00:00: mg total) - Tablet 00 by mouth Externa Delayed daily l Response Tramadol 2022- No 50mg 1 tablet Trinh ey HCl 03-12-05 (50 mg Seybold (ULTRAM) 50 00:00: 00:00 total). - MG oral 00 :00 Externa Tablet l Blood 2022- No [id number] Use as Kelse y Pressure 03-12 08-10 instructed Seyb old Monitor 00:00: 00:00 , once - does not 00 :00 daily Externa apply Kit l Gentamicin 2022- No [id number] 80mg Rachna Sulfate 02-21 07 Seybold (GARAMYCIN) 16:15: 16:23 - 40 mg/mL 00 :00 Externa l Gentamicin 2022- No [id number] 80mg Urology Rachna Sulfate 02-21 07 Prophylaxi Seybo ld (GARAMYCIN) 16:15: 16:23 s - 40 mg/mL 00 :00 Medication Exter na ? l Yes
80 mg, intramuscu lar, ONCE, On Sun02/21/23 at 1115, For 1 dose
In ject deeply into a large muscle mass. Do not use solutions prepared from commercial ly available premixed solutions for IM administra tion. Withdraw appropriat e dose directly from the vial of solution for injection. No dilution necessary.
TRIMETHOPRI Yes 1{tbl} Take 1 Ke lsey M-SULFAMETH - tablet by John lynn OXAZOLE 00:00: mouth - (Bactrim 00 every 12 Externa DS) 800-160 hours l MG oral Tablet Ondansetron Yes [id number] 4mg Q.[id number] Take 1 Rachna HCl 4 MG -20 [id number] tablet (4 Seybold oral Tablet 00:00: 3D mg total) - 00 by mouth Externa every 8 l hours as needed for nausea Ondansetron 2023-0 Yes [id number] 4mg Q.[id number] Take 1 Rachna HCl 4 MG 6-20 [id number] tablet (4 Seybold oral Tablet 00:00: 3D mg total) - 00 by mouth Externa every 8 l hours as needed for nausea Ondansetron 2023-0 Yes [id number] 4mg Q.[id number] Take 1 Rachna HCl 4 MG 6-20 [id number] tablet (4 Seybold oral Tablet 00:00: 3D mg total) - 00 by mouth Externa every 8 l hours as needed for nausea Ondansetron 3-0 Yes [id number] 4mg Q.[id number] Take 1 Rachna HCl 4 MG 6-20 [id number] tablet (4 Seybold oral Tablet 00:00: 3D mg total) - 00 by mouth Externa every 8 l hours as needed for nausea Ondansetron 3-0 Yes [id number] 4mg Q.[id number] Take 1 Rachna HCl 4 MG 6-20 [id number] tablet (4 Seybold oral Tablet 00:00: 3D mg total) - 00 by mouth Externa every 8 l hours as needed for nausea Ondansetron 3-0 2023- No [id number] 4mg Q.[id number] Take 1 Rachna HCl 4 MG 6-20 09-05 [id number] tablet (4 Seybold oral Tablet 00:00: 00:00 3D mg total) - 00 :00 by mouth Externa every 8 l hours as needed for nausea Gabapentin 3-0 Yes [id number] 400mg Take 1 Rachna 400 MG oral 6-14 capsule Seybo ld Capsule 00:00: (400 mg - 00 total) by Externa mouth 3 l times daily Baclofen 10 2022-0 Yes Half to 1 K elsey MG oral 6-14 tablet Seybold Tablet 00:00: p.o. 3 - 00 times Externa daily as l needed muscle spasms and pain Gabapentin 3-0 Yes [id number] 400mg Take 1 Rachna 400 MG oral 6-14 capsule Seybo ld Capsule 00:00: (400 mg - 00 total) by Externa mouth 3 l times daily Baclofen 10 Yes Half to 1 K elsey MG oral 6-14 tablet Seybold Tablet 00:00: p.o. 3 - 00 times Externa daily as l needed muscle spasms and pain Gabapentin 2022-0 Yes [id number] 400mg Take 1 Rachna 400 MG oral 6-14 capsule Seybo ld Capsule 00:00: (400 mg - 00 total) by Externa mouth 3 l times daily Baclofen 10 Yes Half to 1 K elsey MG oral 6-14 tablet Seybold Tablet 00:00: p.o. 3 - 00 times Externa daily as l needed muscle spasms and pain Gabapentin 0 Yes [id number] 400mg Take 1 Rachna 400 MG oral 6-14 capsule Seybo ld Capsule 00:00: (400 mg - 00 total) by Externa mouth 3 l times daily Baclofen 10 Yes Half to 1 K elsey MG oral 6-14 tablet Seybold Tablet 00:00: p.o. 3 - 00 times Externa daily as l needed muscle spasms and pain Gabapentin 0 Yes [id number] 400mg Take 1 Rachna 400 MG oral 6-14 capsule Seybo ld Capsule 00:00: (400 mg - 00 total) by Externa mouth 3 l times daily Baclofen Yes Half to 1 K elsey MG oral 6-14 tablet Seybold Tablet 00:00: p.o. 3 - 00 times Externa daily as l needed muscle spasms and pain Gabapentin 2022-0 Yes [id number] 400mg Take 1 Rachna 400 MG oral 6-14 capsule Seybo ld Capsule 00:00: (400 mg - 00 total) by Externa mouth 3 l times daily Baclofen 10 Yes Half to 1 K elsey MG oral 6-14 tablet Seybold Tablet 00:00: p.o. 3 - 00 times Externa daily as l needed muscle spasms and pain Gabapentin 2022-0 Yes [id number] 400mg Take 1 Rachna 400 MG oral 6-14 capsule Seybo ld Capsule 00:00: (400 mg - 00 total) by Externa mouth 3 l times daily Baclofen 10 Yes Half to 1 K elsey MG oral 6-14 tablet Seybold Tablet 00:00: p.o. 3 - 00 times Externa daily as l needed muscle spasms and pain Gabapentin Yes [id number] 400mg Take 1 Rachna 400 MG oral 6-14 capsule Seybo ld Capsule 00:00: (400 mg - 00 total) by Externa mouth 3 l times daily Baclofen 10 Yes Half to 1 K elsey MG oral 6-14 tablet Seybold Tablet 00:00: p.o. 3 - 00 times Externa daily as l needed muscle spasms and pain Gabapentin Yes [id number] 400mg Take 1 Rachna 400 MG oral 6-14 capsule Seybo ld Capsule 00:00: (400 mg - 00 total) by Externa mouth 3 l times daily Baclofen 10 Yes Half to 1 K elsey MG oral 6-14 tablet Seybold Tablet 00:00: p.o. 3 - 00 times Externa daily as l needed muscle spasms and pain Baclofen 10 Yes Half to 1 K elsey MG oral 6-14 tablet Seybold Tablet 00:00: p.o. 3 - 00 times Externa daily as l needed muscle spasms and pain Baclofen 10 Yes Half to 1 K elsey MG oral 6-14 tablet Seybold Tablet 00:00: p.o. 3 - 00 times Externa daily as l needed muscle spasms and pain TRIMETHOPRI Yes 1{tbl} Take 1 Ke lsey M-SULFAMETH 5-24 tablet by John bold OXAZOLE 00:00: mouth - (Bactrim 00 every 12 Externa DS) 800-160 hours l MG oral Tablet Blood Yes [id number] 1{each} 1 each by Rachna Glucose 01-24 does not Seybold Monitoring 00:00: apply - Suppl 00 route Externa (Accu-Chek daily Use l Guide Me) as w/Device directed does not once apply Kit daily. OneTouch Yes [id number] 1{each} 1 each by Rachna Delica 01-24 does not Seybold Lancets 30G 00:00: apply - does not 00 route Externa apply Misc daily Use l as directed once daily Glucose Yes [id number] Use as Trinh ey Blood in 5-24 directed Seybold vitro Strip 00:00: once - 00 daily. Externa Acuu-Check l Guide to go with meter TRIMETHOPRI 2022-0 Yes 1{tbl} Take 1 Ke lsey M-SULFAMETH 01-24 tablet by John lynn OXAZOLE 00:00: mouth - (Bactrim 00 every 12 Externa DS) 800-160 hours l MG oral Tablet Blood 2022-0 Yes [id number] 1{each} 1 each by Rachna Glucose 01-24 does not Seybold Monitoring 00:00: apply - Suppl 00 route Externa (Accu-Chek daily Use l Guide Me) as w/Device directed does not once apply Kit daily. OneTouch 2022-0 Yes [id number] 1{each} 1 each by Rachna Roblero 01-24 does not Seybold Lancets 30G 00:00: apply - does not 00 route Externa apply Misc daily Use l as directed once daily Glucose 2022-0 Yes [id number] Use as Trinh ey Blood in 01-24 directed Seybold vitro Strip 00:00: once - 00 daily. Externa Acuu-Check l Guide to go with meter Blood 2022-0 Yes [id number] 1{each} 1 each by Rachna Glucose 01-24 does not Seybold Monitoring 00:00: apply - Suppl 00 route Externa (Accu-Chek daily Use l Guide Me) as w/Device directed does not once apply Kit daily. OneTouch 2022-0 Yes [id number] 1{each} 1 each by Rachna Roblero 01-24 does not Seybold Lancets 30G 00:00: apply - does not 00 route Externa apply Misc daily Use l as directed once daily Glucose 2022-0 Yes [id number] Use as Trinh ey Blood in 01-24 directed Seybold vitro Strip 00:00: once - 00 daily. Externa Acuu-Check l Guide to go with meter Glucose 2022-0 Yes [id number] 1{each} 1 each by Rachna Moeller in 01-22 other Seybold vitro Strip 00:00: route - 00 daily Use Externa as l directed once daily, Uses a [employer] [employer] meter, DX: E11.65 Glucose 2022-0 Yes [id number] 1{each} 1 each by Rachna Moeller in 01-22 other Seybold vitro Strip 00:00: route - 00 daily Use Externa as l directed once daily, Uses a [employer] Classic meter, DX: E11.65 Tramadol Yes [id number] 50mg QD Take 1 Ke lsey HCl 5-19 tablet (50 Seybold (ULTRAM) 50 00:00: mg total) - MG oral 00 by mouth Externa Tablet daily as l needed for pain Tramadol Yes [id number] 50mg QD Take 1 Ke lsey HCl 5-19 tablet (50 Seybold (ULTRAM) 50 00:00: mg total) - MG oral 00 by mouth Externa Tablet daily as l needed for pain Tramadol Yes [id number] 50mg QD Take 1 Ke lsey HCl 5-19 tablet (50 Seybold (ULTRAM) 50 00:00: mg total) - MG oral 00 by mouth Externa Tablet daily as l needed for pain Tramadol Yes [id number] 50mg QD Take 1 Ke lsey HCl 5-19 tablet (50 Seybold (ULTRAM) 50 00:00: mg total) - MG oral 00 by mouth Externa Tablet daily as l needed for pain Tramadol Yes [id number] 50mg QD Take 1 Ke lsey HCl 5-19 tablet (50 Seybold (ULTRAM) 50 00:00: mg total) - MG oral 00 by mouth Externa Tablet daily as l needed for pain Tramadol Yes [id number] 50mg QD Take 1 Ke lsey HCl 5-19 tablet (50 Seybold (ULTRAM) 50 00:00: mg total) - MG oral 00 by mouth Externa Tablet daily as l needed for pain Tramadol Yes [id number] 50mg QD Take 1 Ke lsey HCl 5-19 tablet (50 Seybold (ULTRAM) 50 00:00: mg total) - MG oral 00 by mouth Externa Tablet daily as l needed for pain Tramadol 2022- Yes [id number] 50mg QD Take 1 Ke lsey HCl 5-19 tablet (50 Seybold (ULTRAM) 50 00:00: mg total) - MG oral 00 by mouth Externa Tablet daily as l needed for pain Tramadol Yes [id number] 50mg QD Take 1 Ke lsey HCl 5-19 tablet (50 Seybold (ULTRAM) 50 00:00: mg total) - MG oral 00 by mouth Externa Tablet daily as l needed for pain Tramadol Yes [id number] 50mg QD Take 1 Ke lsey HCl 5-19 tablet (50 Seybold (ULTRAM) 50 00:00: mg total) - MG oral 00 by mouth Externa Tablet daily as l needed for pain Tramadol Yes [id number] 50mg QD Take 1 Ke lsey HCl 5-19 tablet (50 Seybold (ULTRAM) 50 00:00: mg total) - MG oral 00 by mouth Externa Tablet daily as l needed for pain Tramadol Yes [id number] 50mg QD Take 1 Ke lsey HCl 5-19 tablet (50 Seybold (ULTRAM) 50 00:00: mg total) - MG oral 00 by mouth Externa Tablet daily as l needed for pain Tramadol Yes [id number] 50mg QD Take 1 Ke lsey HCl 5-19 tablet (50 Seybold (ULTRAM) 50 00:00: mg total) - MG oral 00 by mouth Externa Tablet daily as l needed for pain Tramadol Yes [id number] 50mg QD Take 1 Ke lsey HCl 5-19 tablet (50 Seybold (ULTRAM) 50 00:00: mg total) - MG oral 00 by mouth Externa Tablet daily as l needed for pain Tramadol 0 Yes [id number] 50mg QD Take 1 Ke lsey HCl 5-19 tablet (50 Seybold (ULTRAM) 50 00:00: mg total) - MG oral 00 by mouth Externa Tablet daily as l needed for pain Tramadol Yes [id number] 50mg QD Take 1 Ke lsey HCl 5-19 tablet (50 Seybold (ULTRAM) 50 00:00: mg total) - MG oral 00 by mouth Externa Tablet daily as l needed for pain Gabapentin 2022-0 Yes [id number] 400mg Take 1 Rachna 400 MG oral 5-12 capsule Seybo ld Capsule 00:00: (400 mg - 00 total) by Externa mouth 3 l times daily Gabapentin 2022-0 Yes [id number] 400mg Take 1 Rachna 400 MG oral 5-12 capsule Seybo ld Capsule 00:00: (400 mg - 00 total) by Externa mouth 3 l times daily Gabapentin 2022-0 Yes [id number] 400mg Take 1 Rachna 400 MG oral 5-12 capsule Seybo ld Capsule 00:00: (400 mg - 00 total) by Externa mouth 3 l times daily Gabapentin 2022-0 2023- No [id number] 400mg Take 1 Rachna 400 MG oral 5-12 06-13 capsule Seyb old Capsule 00:00: 00:00 (400 mg - 00 :00 total) by Externa mouth 3 l times daily Meloxicam 2022-0 Yes [id number] 15mg Take 1 K elsey 15 MG oral 5-09 tablet (15 Sey bold Tablet 00:00: mg total) - 00 by mouth Externa daily l Cholecalcif 2022-0 Yes [id number] Take 1 Rachna zach 5-09 capsule Seybold (Vitamin D) 00:00: (2,000 - 50 MCG 00 units Externa (1999) total) by l oral mouth Capsule daily Gabapentin 2022-0 Yes [id number] 400mg Take 1 Rachna 400 MG oral 5-09 capsule Seybo ld Capsule 00:00: (400 mg - 00 total) by Externa mouth 3 l times daily Meloxicam 2022-0 Yes [id number] 15mg Take 1 K elsey 15 MG oral 5-09 tablet (15 Sey bold Tablet 00:00: mg total) - 00 by mouth Externa daily l Cholecalcif 2022-0 Yes [id number] Take 1 Rachna zach 5-09 capsule Seybold (Vitamin D) 00:00: (2,000 - 50 MCG 00 units Externa (1999 UT) total) by l oral mouth Capsule daily Meloxicam 2022-0 Yes [id number] 15mg Take 1 K elsey 15 MG oral 5-09 tablet (15 Sey bold Tablet 00:00: mg total) - 00 by mouth Externa daily l Cholecalcif 2022-0 Yes [id number] Take 1 Rachna zach 5-09 capsule Seybold (Vitamin D) 00:00: (2,000 - 50 MCG 00 units Externa (1999) total) by l oral mouth Capsule daily Meloxicam 2022-0 Yes [id number] 15mg Take 1 K elsey 15 MG oral 5-09 tablet (15 Sey bold Tablet 00:00: mg total) - 00 by mouth Externa daily l Cholecalcif 2022-0 Yes [id number] Take 1 Rachna zach 5-09 capsule Seybold (Vitamin D) 00:00: (2,000 - 50 MCG 00 units Externa (1999) total) by l oral mouth Capsule daily Meloxicam Yes [id number] 15mg Take 1 K elsey 15 MG oral 5-09 tablet (15 Sey bold Tablet 00:00: mg total) - 00 by mouth Externa daily l Cholecalcif 2022-0 Yes [id number] Take 1 Rachna zach 5-09 capsule Seybold (Vitamin D) 00:00: (2,000 - 50 MCG 00 units Externa (1999 UT) total) by l oral mouth Capsule daily Meloxicam 0 Yes [id number] 15mg Take 1 K elsey 15 MG oral 5-09 tablet (15 Sey bold Tablet 00:00: mg total) - 00 by mouth Externa daily l Gabapentin 0 2022- No [id number] 300mg Take 1 Rachna 300 MG oral 5-09 05-09 capsule Seyb old Capsule 00:00: 00:00 (300 mg - 00 :00 total) by Externa mouth 3 l times daily 1 po q HS x 7 days, then 1 po BID x 7 days, then 1 po TID Gabapentin 0 2022- No [id number] 300mg Take 1 Rachna 300 MG oral 5-09 05-09 capsule Seyb old Capsule 00:00: 00:00 (300 mg - 00 :00 total) by Externa mouth 3 l times daily Sod 0 2022- No [id number] 160mL Take 160 Ke lsey Picosulfate 4-24 05-09 mL by Seybol d -Mag Ox-Cit 00:00: 00:00 mouth once - Acd 00 :00 for 1 dose Externa 10-3.5-12 l MG-GM -GM/160ML oral Solution Doxycycline 0 2022- No [id number] 100mg Take 1 Rachna Hyclate 100 4-20 06-02 capsule Seyb old MG oral 00:00: 04:59 (100 mg - Capsule 00 :00 total) by Externa mouth 2 l times daily Doxycycline 2022-0 2022- No [id number] 100mg Take 1 Rachna Hyclate 100 4-20 - capsule Seyb old MG oral 00:: 04:59 (100 mg - Capsule 00 :00 total) by Externa mouth 2 l times daily Doxycycline 2022-0 3- No [id number] 100mg Take 1 Rachna Hyclate 100 4-20 - capsule Seyb old MG oral 00:: 04:59 (100 mg - Capsule 00 :00 total) by Externa mouth 2 l times daily Doxycycline 2022-0 2022- No [id number] 100mg Take 1 Rachna Hyclate 100 -20 - capsule Seyb old MG oral 00:: 04:59 (100 mg - Capsule 00 :00 total) by Externa mouth 2 l times daily Doxycycline 2022-0 2022- No [id number] 100mg Take 1 Rachna Hyclate 100 -20 - capsule Seyb old MG oral 00:: 04:59 (100 mg - Capsule 00 :00 total) by Externa mouth 2 l times daily Ondansetron 2022-0 Yes [id number] 4mg Q.[id number] Take 1 Rachna HCl 4 MG 3-31 [id number] tablet (4 Seybold oral Tablet 00:00: 3D mg total) - 00 by mouth Externa every 8 l hours as needed for nausea Ondansetron 2022-0 3- No [id number] 4mg Q.[id number] Take 1 Rachna HCl 4 MG 3-31 05-09 [id number] tablet (4 Seybold oral Tablet 00:00: 00:00 3D mg total) - 00 :00 by mouth Externa every 8 l hours as needed for nausea Oxybutynin 2022-0 Yes [id number] 10mg Take 1 Rachna Chloride 10 3-30 tablet (10 Se ybold MG oral 00:00: mg total) - TABLET SR 00 by mouth Supervisor Mending a 24 HR daily l Oxybutynin 2022-0 Yes [id number] 10mg Take 1 Rachna Chloride 10 3-30 tablet (10 Se ybold MG oral 00:00: mg total) - TABLET SR 00 by mouth Supervisor Mending a 24 HR daily l Oxybutynin 2022-0 Yes [id number] 10mg Take 1 Rachna Chloride 10 3-30 tablet (10 Se ybold MG oral 00:00: mg total) - TABLET SR 00 by mouth Supervisor Mending a 24 HR daily l Oxybutynin 2023-0 Yes [id number] 10mg Take 1 Rachna Chloride 10 3-30 tablet (10 Se ybold MG oral 00:00: mg total) - TABLET SR 00 by mouth Supervisor Mending a 24 HR daily l Oxybutynin 2023-0 Yes [id number] 10mg Take 1 Rachna Chloride 10 3-30 tablet (10 Se ybold MG oral 00:00: mg total) - TABLET SR 00 by mouth Supervisor Mending a 24 HR daily l Oxybutynin 2023-0 Yes [id number] 10mg Take 1 Rachna Chloride 10 3-30 tablet (10 Se ybold MG oral 00:00: mg total) - TABLET SR 00 by mouth Supervisor Mending a 24 HR daily l Oxybutynin 2023-0 Yes [id number] 10mg Take 1 Rachna Chloride 10 3-30 tablet (10 Se ybold MG oral 00:00: mg total) - TABLET SR 00 by mouth Supervisor Mending a 24 HR daily l Oxybutynin 2023-0 Yes [id number] 10mg Take 1 Rachna Chloride 10 3-30 tablet (10 Se ybold MG oral 00:00: mg total) - TABLET SR 00 by mouth Supervisor Mending a 24 HR daily l Lisinopril 2023-0 Yes [id number] 40mg Take 1 K elsey 40 MG oral 3-22 tablet (40 Sey bold Tablet 00:00: mg total) - 00 by mouth Externa daily l Lisinopril 2023-0 Yes [id number] 40mg Take 1 K elsey 40 MG oral 3-22 tablet (40 Sey bold Tablet 00:00: mg total) - 00 by mouth Externa daily l Lisinopril 2023-0 Yes [id number] 40mg Take 1 K elsey 40 MG oral 3-22 tablet (40 Sey bold Tablet 00:00: mg total) - 00 by mouth Externa daily l Lisinopril 2023-0 Yes [id number] 40mg Take 1 K elsey 40 MG oral 3-22 tablet (40 Sey bold Tablet 00:00: mg total) - 00 by mouth Externa daily l Lisinopril 2023-0 Yes [id number] 40mg Take 1 K elsey 40 MG oral 3-22 tablet (40 Sey bold Tablet 00:00: mg total) - 00 by mouth Externa daily l Lisinopril 2023-0 Yes [id number] 40mg Take 1 K elsey 40 MG oral 3-22 tablet (40 Sey bold Tablet 00:00: mg total) - 00 by mouth Externa daily l Lisinopril 2023-0 Yes [id number] 40mg Take 1 K elsey 40 MG oral 3-22 tablet (40 Sey bold Tablet 00:00: mg total) - 00 by mouth Externa daily l Lisinopril 2023-0 Yes [id number] 40mg Take 1 K elsey 40 MG oral 3-22 tablet (40 Sey bold Tablet 00:00: mg total) - 00 by mouth Externa daily l Lisinopril 2023-0 Yes [id number] 40mg Take 1 K elsey 40 MG oral 3-22 tablet (40 Sey bold Tablet 00:00: mg total) - 00 by mouth Externa daily l Lisinopril 2023-0 Yes [id number] 40mg Take 1 K elsey 40 MG oral 3-22 tablet (40 Sey bold Tablet 00:00: mg total) - 00 by mouth Externa daily l Lisinopril 2023-0 Yes [id number] 40mg Take 1 K elsey 40 MG oral 3-22 tablet (40 Sey bold Tablet 00:00: mg total) - 00 by mouth Externa daily l Lisinopril 2023-0 Yes [id number] 40mg Take 1 K elsey 40 MG oral 3-22 tablet (40 Sey bold Tablet 00:00: mg total) - 00 by mouth Externa daily l Lisinopril 2023-0 Yes [id number] 40mg Take 1 K elsey 40 MG oral 3-22 tablet (40 Sey bold Tablet 00:00: mg total) - 00 by mouth Externa daily l Lisinopril 2023-0 Yes [id number] 40mg Take 1 K elsey 40 MG oral 3-22 tablet (40 Sey bold Tablet 00:00: mg total) - 00 by mouth Externa daily l Lisinopril 2023-0 Yes [id number] 40mg Take 1 K elsey 40 MG oral 3-22 tablet (40 Sey bold Tablet 00:00: mg total) - 00 by mouth Externa daily l Lisinopril 2023-0 Yes [id number] 40mg Take 1 K elsey 40 MG oral 3-22 tablet (40 Sey bold Tablet 00:00: mg total) - 00 by mouth Externa daily l Lisinopril 3-0 Yes [id number] 40mg Take 1 K elsey 40 MG oral 3-22 tablet (40 Sey bold Tablet 00:00: mg total) - 00 by mouth Externa daily l Lisinopril 2023-0 Yes [id number] 40mg Take 1 K elsey 40 MG oral 3-22 tablet (40 Sey bold Tablet 00:00: mg total) - 00 by mouth Externa daily l Lisinopril 2023-0 Yes [id number] 40mg Take 1 K elsey 40 MG oral 3-22 tablet (40 Sey bold Tablet 00:00: mg total) - 00 by mouth Externa daily l Lisinopril 3-0 Yes [id number] 40mg Take 1 K elsey 40 MG oral 3-22 tablet (40 Sey bold Tablet 00:00: mg total) - 00 by mouth Externa daily l Lisinopril 3-0 Yes [id number] 40mg Take 1 K elsey 40 MG oral 3-22 tablet (40 Sey bold Tablet 00:00: mg total) - 00 by mouth Externa daily l Lorazepam 2022-0 Yes [id number] Take half Rachna (Ativan) 1 3-21 tablet 30 Seyb old MG oral 00:00: min prior - Tablet 00 to MRI, Externa then ever l 30 min as needed up to three times. Do not combine with narcotics or other benzodiaze pines, do not drive. Lorazepam 2022-0 Yes [id number] Take half Rachna (Ativan) 1 3-21 tablet 30 Seyb old MG oral 00:00: min prior - Tablet 00 to MRI, Externa then ever l 30 min as needed up to three times. Do not combine with narcotics or other benzodiaze pines, do not drive. Lorazepam 2022-0 Yes [id number] Take half Rachna (Ativan) 1 3-21 tablet 30 Seyb old MG oral 00:00: min prior - Tablet 00 to MRI, Externa then ever l 30 min as needed up to three times. Do not combine with narcotics or other benzodiaze pines, do not drive. Lorazepam 2022- No [id number] Take half Rachna (Ativan) 1 3-21 05-09 tablet 30 Sey bold MG oral 00:00: 00:00 min prior - Tablet 00 :00 to MRI, Externa then ever l 30 min as needed up to three times. Do not combine with narcotics or other benzodiaze pines, do not drive. Vitamin D, Yes [id number] Take 1 Rachna Ergocalcife 3-16 capsule Seybo ld rol, 1.25 00:00: (50,000 - MG (95295 00 units Externa UT) oral total) by l Capsule mouth once a week Vitamin D, Yes [id number] Take 1 Rachna Ergocalcife 3-16 capsule Seybo ld rol, 1.25 00:00: (50,000 - MG (09649 00 units Externa UT) oral total) by l Capsule mouth once a week Vitamin D, Yes [id number] Take 1 Rachna Ergocalcife 3-16 capsule Seybo ld rol, 1.25 00:00: (50,000 - MG (13565 00 units Externa UT) oral total) by l Capsule mouth once a week Vitamin D, Yes [id number] Take 1 Rachna Ergocalcife 3-16 capsule Seybo ld rol, 1.25 00:00: (50,000 - MG (28942 00 units Externa UT) oral total) by l Capsule mouth once a week Vitamin D, 2022- No [id number] Take 1 Rachna Ergocalcife 3-16 -09 capsule Seyb old rol, 1.25 00:00: 00:00 (50,000 - MG (96679 00 :00 units Externa UT) oral total) by l Capsule mouth once a week Insulin Yes [id number] 28U Inject 28 K elsey Glargine, 2 3-15 units into Se ybold Unit Dial, 00:00: the skin - (Toujeo Max 00 daily Externa SoloStar) l 300 UNIT/ML subcutaneou s Solution Pen-injecto r Meloxicam 2023-0 Yes [id number] 15mg Take 1 K elsey 15 MG oral 3-15 tablet (15 Sey bold Tablet 00:00: mg total) - 00 by mouth Externa daily l Tramadol 2022-0 Yes [id number] 50mg Q.5D Take 1 Ke lsey HCl 3-15 tablet (50 Seybold (ULTRAM) 50 00:00: mg total) - MG oral 00 by mouth 2 Supervisor Mending a Tablet times l daily as needed for pain Meloxicam 0 Yes [id number] 15mg Take 1 K elsey 15 MG oral 3-15 tablet (15 Sey bold Tablet 00:00: mg total) - 00 by mouth Externa daily l Tramadol 2022-0 Yes [id number] 50mg Q.5D Take 1 Ke lsey HCl 3-15 tablet (50 Seybold (ULTRAM) 50 00:00: mg total) - MG oral 00 by mouth 2 Supervisor Mending a Tablet times l daily as needed for pain Insulin 0 Yes [id number] 28U Inject 28 K elsey Glargine, 2 3-15 units into Se ybold Unit Dial, 00:00: the skin - (Toujeo Max 00 daily Externa SoloStar) l 300 UNIT/ML subcutaneou s Solution Pen-injecto r Meloxicam 2022-0 Yes [id number] 15mg Take 1 K elsey 15 MG oral 3-15 tablet (15 Sey bold Tablet 00:00: mg total) - 00 by mouth Externa daily l Tramadol 2022-0 Yes [id number] 50mg Q.5D Take 1 Ke lsey HCl 3-15 tablet (50 Seybold (ULTRAM) 50 00:00: mg total) - MG oral 00 by mouth 2 Supervisor Mending a Tablet times l daily as needed for pain Insulin 2022-0 Yes [id number] Inject 28 K elsey Glargine, 2 3-15 units into Se ybold Unit Dial, 00:00: the skin - (Toujeo Max 00 daily Externa SoloStar) l 300 UNIT/ML subcutaneou s Solution Pen-injecto r Meloxicam 2022-0 Yes [id number] 15mg Take 1 K elsey 15 MG oral 3-15 tablet (15 Sey bold Tablet 00:00: mg total) - 00 by mouth Externa daily l Tramadol Yes [id number] 50mg Q.5D Take 1 Ke lsey HCl 3-15 tablet (50 Seybold (ULTRAM) 50 00:00: mg total) - MG oral 00 by mouth 2 Supervisor Mending a Tablet times l daily as needed for pain Insulin Yes [id number] 28U Inject 28 K elsey Glargine, 2 3-15 units into [facility] Unit Dial, 00:00: the skin - (Toujeo Max 00 daily Externa SoloStar) l 300 UNIT/ML subcutaneou s Solution Pen-injecto r Meloxicam Yes [id number] 15mg Take 1 K elsey 15 MG oral 3-15 tablet (15 Sey bold Tablet 00:00: mg total) - 00 by mouth Externa daily l Tramadol Yes [id number] 50mg Q.5D Take 1 Ke lsey HCl 3-15 tablet (50 Seybold (ULTRAM) 50 00:00: mg total) - MG oral 00 by mouth 2 Supervisor Mending a Tablet times l daily as needed for pain Insulin Yes [id number] 28U Inject 28 K elsey Glargine, 2 3-15 units into Se [facility] Unit Dial, 00:00: the skin - (Toujeo Max daily Externa SoloStar) l 300 UNIT/ML subcutaneou s Solution Pen-injecto r Insulin Yes [id number] 28U Inject 28 K elsey Glargine, 2 3-15 units into [facility] Unit Dial, 00:00: the skin - (Toujeo Max 00 daily Externa SoloStar) l 300 UNIT/ML subcutaneou s Solution Pen-injecto r Insulin Yes [id number] 28U Inject 28 K elsey Glargine, 2 3-15 units into Se [facility] Unit Dial, 00:00: the skin - (Toujeo Max 00 daily Externa SoloStar) l 300 UNIT/ML subcutaneou s Solution Pen-injecto r Insulin Yes [id number] 28U Inject 28 K elsey Glargine, 2 3-15 units into Se [facility] Unit Dial, 00:00: the skin - (Toujeo Max 00 daily Externa SoloStar) l 300 UNIT/ML subcutaneou s Solution Pen-injecto r Insulin 0 Yes [id number] 28U Inject 28 K elsey Glargine, 2 3-15 units into Se [facility] Unit Dial, 00:00: the skin - (Toujeo Max 00 daily Externa SoloStar) l 300 UNIT/ML subcutaneou s Solution Pen-injecto r Insulin Yes [id number] 28U Inject 28 K elsey Glargine, 2 3-15 units into [facility] Unit Dial, 00:00: the skin - (Toujeo Max 00 daily Externa SoloStar) l 300 UNIT/ML subcutaneou s Solution Pen-injecto r Insulin Yes [id number] 28U Inject 28 K elsey Glargine, 2 3-15 units into [facility] Unit Dial, 00:00: the skin - (Toujeo Max 00 daily Externa SoloStar) l 300 UNIT/ML subcutaneou s Solution Pen-injecto r Insulin Yes [id number] 28U Inject 28 K elsey Glargine, 2 3-15 units into [facility] Unit Dial, 00:00: the skin - (Toujeo Max 00 daily Externa SoloStar) l 300 UNIT/ML subcutaneou s Solution Pen-injecto r Meloxicam 2022- No [id number] 15mg Take 1 Rachna 15 MG oral 3-15 05-09 tablet (15 Se [facility] Tablet 00:00: 00:00 mg total) - 00 :00 by mouth Externa daily l TRIMETHOPRI 2022- No [id number] 1{tbl} Take 1 Rachna M-SULFAMETH 3-15 05-09 tablet by Se [facility] OXAZOLE 00:00: 00:00 mouth 2 - (BACTRIM 00 :00 times Externa DS) 800-160 daily for l MG oral 7 days Tablet Tramadol 2022- No [id number] 50mg Q.5D Take 1 K elsey HCl 3-15 05-09 tablet (50 Seybold (ULTRAM) 50 00:00: 00:00 mg total) - MG oral 00 :00 by mouth 2 Supervisor Mending a Tablet times l daily as needed for pain TRIMETHOPRI 2022- No [id number] 1{tbl} Take 1 Rachna M-SULFAMETH 3-15 - tablet by Se [facility] OXAZOLE 00:00: 04:59 mouth 2 - (BACTRIM 00 :00 times Externa DS) 800-160 daily for l MG oral 7 days Tablet TRIMETHOPRI 2022- No [id number] 1{tbl} Take 1 Rachna M-SULFAMETH 3-15 - tablet by Se [facility] OXAZOLE 00:00: 04:59 mouth 2 - (BACTRIM 00 :00 times Externa DS) 800-160 daily for l MG oral 7 days Tablet TRIMETHOPRI 2022- No [id number] 1{tbl} Take 1 Rachna M-SULFAMETH 3-15 11-23 tablet by Se [facility] OXAZOLE 00:00: 04:59 mouth 2 - (BACTRIM 00 :00 times Externa DS) 800-160 daily for l MG oral 7 days Tablet Tramadol 2022- No [id number] 50mg Q.5D Take 1 K elsey HCl 3-15 11-15 tablet (50 Sey[facility] (ULTRAM) 50 00:00: 00:00 mg total) - MG oral 00 :00 by mouth 2 Supervisor Mending a Tablet times l daily as needed for pain Gabapentin Yes 1 po q HS Ke lsey 300 MG oral 3-13 x 7 days, Sey bold Capsule 00:00: then 1 po - 00 BID x 7 Externa days, then l 1 po TID Gabapentin 2022-0 Yes 1 po q HS Ke lsey 300 MG oral 3-13 x 7 days, Sey bold Capsule 00:00: then 1 po - 00 BID x 7 Externa days, then l 1 po TID Gabapentin 2022-0 Yes 1 po q HS Ke lsey 300 MG oral 3-13 x 7 days, Sey bold Capsule 00:00: then 1 po - 00 BID x 7 Externa days, then l 1 po TID Gabapentin 2022-0 Yes 1 po q HS Ke lsey 300 MG oral 3-13 x 7 days, Sey bold Capsule 00:00: then 1 po - 00 BID x 7 Externa days, then l 1 po TID Gabapentin 2022-0 Yes 1 po q HS Ke lsey 300 MG oral 3-13 x 7 days, Sey bold Capsule 00:00: then 1 po - 00 BID x 7 Externa days, then l 1 po TID Gabapentin 2022-0 Yes 1 po q HS Ke lsey 300 MG oral 3-13 x 7 days, Sey bold Capsule 00:00: then 1 po - 00 BID x 7 Externa days, then l 1 po TID Gabapentin 2022-0 2023- No 1 po q HS K elsey 300 MG oral 3-13 05-09 x 7 days, Se [facility] Capsule 00:00: 00:00 then 1 po - 00 :00 BID x 7 Externa days, then l 1 po TID Gabapentin 2022-0 2023- No 1 po q HS K elsey 300 MG oral 3-13 03-13 x 7 days, Se [facility] Capsule 00:00: 00:00 then 1 po - 00 :00 BID x 7 Externa days, then l 1 po TID Folic Acid 2022-0 Yes [id number] 1mg Take 1 Rachna 1 MG oral 3-02 tablet (1 Seybo ld tablet 00:00: mg total) - 00 by mouth Externa daily l Ondansetron 2022-0 Yes [id number] 4mg Q.[id number] Take 1 Rachna HCl 4 MG 3-02 [id number] tablet (4 Sey[facility] oral Tablet 00:00: 3D mg total) - 00 by mouth Externa every 8 l hours as needed for nausea Pantoprazol 2022-0 Yes [id number] 40mg Take 1 Rachna e Sodium 40 3-02 tablet (40 Se [facility] MG oral 00:00: mg total) - Tablet 00 by mouth Externa Delayed daily l Response Folic Acid 2022-0 Yes [id number] 1mg Take 1 Rachna 1 MG oral 3-02 tablet (1 Seybo ld tablet 00:00: mg total) - 00 by mouth Externa daily l Ondansetron 2022-0 Yes [id number] 4mg Q.[id number] Take 1 Rachna HCl 4 MG 3-02 [id number] tablet (4 Sey[facility] oral Tablet 00:00: 3D mg total) - 00 by mouth Externa every 8 l hours as needed for nausea Pantoprazol 2022-0 Yes [id number] 40mg Take 1 Rachna e Sodium 40 3-02 tablet (40 Se [facility] MG oral 00:00: mg total) - Tablet 00 by mouth Externa Delayed daily l Response Folic Acid 2023-0 Yes [id number] 1mg Take 1 Rachna 1 MG oral 3-02 tablet (1 Seybo ld tablet 00:00: mg total) - 00 by mouth Externa daily l Ondansetron 2023-0 Yes [id number] 4mg Q.[id number] Take 1 Rachna HCl 4 MG 3-02 [id number] tablet (4 Sey[facility] oral Tablet 00:00: 3D mg total) - 00 by mouth Externa every 8 l hours as needed for nausea Pantoprazol 3-0 Yes [id number] 40mg Take 1 Rachna e Sodium 40 3-02 tablet (40 Se [facility] MG oral 00:00: mg total) - Tablet 00 by mouth Externa Delayed daily l Response Folic Acid 3-0 Yes [id number] 1mg Take 1 Rachna 1 MG oral 3-02 tablet (1 Seybo ld tablet 00:00: mg total) - 00 by mouth Externa daily l Ondansetron 3-0 Yes [id number] 4mg Q.[id number] Take 1 Rachna HCl 4 MG 3-02 [id number] tablet (4 Sey[facility] oral Tablet 00:00: 3D mg total) - 00 by mouth Externa every 8 l hours as needed for nausea Pantoprazol 2023-0 Yes [id number] 40mg Take 1 Rachna e Sodium 40 3-02 tablet (40 Se [facility] MG oral 00:00: mg total) - Tablet 00 by mouth Externa Delayed daily l Response Folic Acid 3-0 Yes [id number] 1mg Take 1 Rachna 1 MG oral 3-02 tablet (1 Seybo ld tablet 00:00: mg total) - 00 by mouth Externa daily l Ondansetron 2023-0 Yes [id number] 4mg Q.[id number] Take 1 Rachna HCl 4 MG 3-02 [id number] tablet (4 Sey[facility] oral Tablet 00:00: 3D mg total) - 00 by mouth Externa every 8 l hours as needed for nausea Pantoprazol 2023-0 Yes [id number] 40mg Take 1 Rachna e Sodium 40 3-02 tablet (40 Se [facility] MG oral 00:00: mg total) - Tablet 00 by mouth Externa Delayed daily l Response Folic Acid 2023-0 Yes [id number] 1mg Take 1 Rachna 1 MG oral 3-02 tablet (1 Seybo ld tablet 00:00: mg total) - 00 by mouth Externa daily l Ondansetron 3-0 Yes [id number] 4mg Q.[id number] Take 1 Rachna HCl 4 MG 3-02 [id number] tablet (4 Sey[facility] oral Tablet 00:00: 3D mg total) - 00 by mouth Externa every 8 l hours as needed for nausea Pantoprazol 2023-0 Yes [id number] 40mg Take 1 Rachna e Sodium 40 3-02 tablet (40 Se [facility] MG oral 00:00: mg total) - Tablet 00 by mouth Externa Delayed daily l Response Folic Acid 3-0 Yes [id number] 1mg Take 1 Rachna 1 MG oral 3-02 tablet (1 Seybo ld tablet 00:00: mg total) - 00 by mouth Externa daily l Pantoprazol 3-0 Yes [id number] 40mg Take 1 Rachna e Sodium 40 3-02 tablet (40 Se [facility] MG oral 00:00: mg total) - Tablet 00 by mouth Externa Delayed daily l Response Folic Acid 3-0 Yes [id number] 1mg Take 1 Rachna 1 MG oral 3-02 tablet (1 Seybo ld tablet 00:00: mg total) - 00 by mouth Externa daily l Pantoprazol 2023-0 Yes [id number] 40mg Take 1 Rachna e Sodium 40 3-02 tablet (40 Se [facility] MG oral 00:00: mg total) - Tablet 00 by mouth Externa Delayed daily l Response Folic Acid 3-0 Yes [id number] 1mg Take 1 Rachna 1 MG oral 3-02 tablet (1 Seybo ld tablet 00:00: mg total) - 00 by mouth Externa daily l Pantoprazol 2023-0 Yes [id number] 40mg Take 1 Rachna e Sodium 40 3-02 tablet (40 Se [facility] MG oral 00:00: mg total) - Tablet 00 by mouth Externa Delayed daily l Response Folic Acid 2023-0 Yes [id number] 1mg Take 1 Rachna 1 MG oral 3-02 tablet (1 Seybo ld tablet 00:00: mg total) - 00 by mouth Externa daily l Pantoprazol 2023-0 Yes [id number] 40mg Take 1 Rachna e Sodium 40 3-02 tablet (40 Se [facility] MG oral 00:00: mg total) - Tablet 00 by mouth Externa Delayed daily l Response Folic Acid 2022-0 Yes [id number] 1mg Take 1 Rachna 1 MG oral 3-02 tablet (1 Seybo ld tablet 00:00: mg total) - 00 by mouth Externa daily l Pantoprazol 3-0 Yes [id number] 40mg Take 1 Rachna e Sodium 40 3-02 tablet (40 Se [facility] MG oral 00:00: mg total) - Tablet 00 by mouth Externa Delayed daily l Response Folic Acid 2022-0 Yes [id number] 1mg Take 1 Rachna 1 MG oral 3-02 tablet (1 Seybo ld tablet 00:00: mg total) - 00 by mouth Externa daily l Pantoprazol 3-0 Yes [id number] 40mg Take 1 Rachna e Sodium 40 3-02 tablet (40 Se [facility] MG oral 00:00: mg total) - Tablet 00 by mouth Externa Delayed daily l Response Folic Acid 2022-0 Yes [id number] 1mg Take 1 Rachna 1 MG oral 3-02 tablet (1 Seybo ld tablet 00:00: mg total) - 00 by mouth Externa daily l Pantoprazol 3-0 Yes [id number] 40mg Take 1 Rachna e Sodium 40 3-02 tablet (40 Se [facility] MG oral 00:00: mg total) - Tablet 00 by mouth Externa Delayed daily l Response Sod 2022-0 2022- No [id number] 160mL Take 160 Ke lsey Picosulfate 3-02 05-09 mL by Seybol d -Mag Ox-Cit 00:00: 00:00 mouth once - Acd 00 :00 for 1 dose Externa 10-3.5-12 l MG-GM -GM/160ML oral Solution Sod 2022- No [id number] 160mL Take 160 Ke lsey Picosulfate 3-02 03-16 mL by Seybol d -Mag Ox-Cit 00:00: 04:59 mouth once - Acd 00 :00 for 1 dose Externa 10-3.5-12 l MG-GM -GM/160ML oral Solution Sod 2022- No [id number] 160mL Take 160 Ke lsey Picosulfate 11-02- mL by Seybol d -Mag Ox-Cit 00:00: 05:59 mouth once - Acd 00 :00 for 1 dose Externa 10-3.5-12 l MG-GM -GM/160ML oral Solution Na 2022- No [id number] Instructio K elsey Sulfate-K 11-02- ns Seybold Sulfate-Mg 00:00: 00:00 provided - Sulf 00 :00 to Externa (SUPREP patient. l BOWEL PREP Follow KIT) instructio 17.5-3.13-1 ns .6 GM/177ML provided oral by Solution provider. Pantoprazol 2022- No [id number] 40mg Take 1 Rachna e Sodium 40 11-02 tablet (40 S eybold MG oral 00:00: 00:00 mg total) - Tablet 00 :00 by mouth Externa Delayed daily l Response Ondansetron 2022- No [id number] 4mg Q.78067729 Take 1 Rachna HCl 4 MG 11-02 [id number] tablet (4 Sey[facility] oral Tablet 00:00: 00:00 3D mg total) - 00 :00 by mouth Externa every 8 l hours as needed for nausea Folic Acid 2022- No [id number] 1mg Take 1 Rachna 1 MG oral 11-02 tablet (1 Seyb old tablet 00:00: 00:00 mg total) - 00 :00 by mouth Externa daily l Na 2022- No [id number] Instructio K elsey Sulfate-K 11-02- ns Seybold Sulfate-Mg 00:00: 00:00 provided - Sulf 00 :00 to Externa (SUPREP patient. l BOWEL PREP Follow KIT) instructio 17.5-3.13-1 ns .6 GM/177ML provided oral by Solution provider. Tramadol Yes [id number] 50mg Q.5D Take 1 Ke lsey HCl 2-21 tablet (50 Seybold (ULTRAM) 50 00:00: mg total) - MG oral 00 by mouth 2 Supervisor Mending a Tablet times l daily as needed for pain Tramadol Yes [id number] 50mg Q.5D Take 1 Ke lsey HCl 2-21 tablet (50 Seybold (ULTRAM) 50 00:00: mg total) - MG oral 00 by mouth 2 Supervisor Mending a Tablet times l daily as needed for pain Tramadol 0 Yes [id number] 50mg Q.5D Take 1 Ke lsey HCl 2-21 tablet (50 Seybold (ULTRAM) 50 00:00: mg total) - MG oral 00 by mouth 2 Supervisor Mending a Tablet times l daily as needed for pain Tramadol 0 2022- No [id number] 50mg Q.5D Take 1 K elsey HCl 2-21 03-15 tablet (50 Seybold (ULTRAM) 50 00:00: 00:00 mg total) - MG oral 00 :00 by mouth 2 Supervisor Mending a Tablet times l daily as needed for pain Meloxicam 0 Yes [id number] 15mg Take 1 K elsey 15 MG oral 1-31 tablet (15 Sey bold Tablet 00:00: mg total) - 00 by mouth Externa daily l Meloxicam 0 Yes [id number] 15mg Take 1 K elsey 15 MG oral 1-31 tablet (15 Sey bold Tablet 00:00: mg total) - 00 by mouth Externa daily l Meloxicam 2022-0 Yes [id number] 15mg Take 1 K elsey 15 MG oral 1-31 tablet (15 Sey bold Tablet 00:00: mg total) - 00 by mouth Externa daily l Meloxicam 2022-0 Yes [id number] 15mg Take 1 K elsey 15 MG oral 1-31 tablet (15 Sey bold Tablet 00:00: mg total) - 00 by mouth Externa daily l Meloxicam 2022-0 2022- No [id number] 15mg Take 1 Rachan 15 MG oral 1-31 03-15 tablet (15 Se [facility] Tablet 00:00: 00:00 mg total) - 00 :00 by mouth Externa daily l Tramadol 2022-0 2022- No [id number] 50mg Q.5D Take 1 K elsey HCl 1-31 02-21 tablet (50 Seybold (ULTRAM) 50 00:00: 00:00 mg total) - MG oral 00 :00 by mouth 2 Supervisor Mending a Tablet times l daily as needed for pain Nitrofurant 0 2022- No [id number] 100mg Take 1 Rachna oin Monohyd 1-20 03-15 capsule Seyb old Macro 100 00:00: 00:00 (100 mg - MG oral 00 :00 total) by Externa Capsule mouth 2 l times daily for 5 days Nitrofurant 0 2022- No [id number] 100mg Take 1 Rachna oin Monohyd 1-20 01-26 capsule Seyb old Macro 100 00:00: 05:59 (100 mg - MG oral 00 :00 total) by Externa Capsule mouth 2 l times daily for 5 days Insulin Yes [id number] 28U Inject 28 K elsey Glargine, 2 1-11 units into [facility] Unit Dial, 00:00: the skin - (Toujeo Max 00 daily Externa SoloStar) l 300 UNIT/ML subcutaneou s Solution Pen-injecto r Ondansetron Yes [id number] 4mg Q.[id number] Take 1 Rachna HCl 4 MG 1-11 [id number] tablet (4 Seybold oral Tablet 00:00: 3D mg total) - 00 by mouth Externa every 8 l hours as needed for nausea Insulin Yes [id number] 28U Inject 28 K elsey Glargine, 2 1-11 units into Se [facility] Unit Dial, 00:00: the skin - (Toujeo Max 00 daily Externa SoloStar) l 300 UNIT/ML subcutaneou s Solution Pen-injecto r Insulin Yes [id number] 28U Inject 28 K elsey Glargine, 2 1-11 units into Se [facility] Unit Dial, 00:00: the skin - (Toujeo Max 00 daily Externa SoloStar) l 300 UNIT/ML subcutaneou s Solution Pen-injecto r Insulin Yes [id number] 28U Inject 28 K elsey Glargine, 2 1-11 units into Se [facility] Unit Dial, 00:00: the skin - (Toujeo Max 00 daily Externa SoloStar) l 300 UNIT/ML subcutaneou s Solution Pen-injecto r Tramadol Yes [id number] 50mg Q.5D Take 1 Ke lsey HCl 50 MG 1-11 tablet (50 Seyb old oral Tablet 00:00: mg total) - 00 by mouth 2 Externa times l daily as needed for pain Ondansetron 2022-0 Yes [id number] 4mg Q.[id number] Take 1 Rachna HCl 4 MG 1-11 [id number] tablet (4 Seybold oral Tablet 00:00: 3D mg total) - 00 by mouth Externa every 8 l hours as needed for nausea Insulin 2022-0 Yes [id number] 28U Inject 28 K elsey Glargine, 2 1-11 units into Se [facility] Unit Dial, 00:00: the skin - (Toujeo Max 00 daily Externa SoloStar) l 300 UNIT/ML subcutaneou s Solution Pen-injecto r Tramadol 2022-0 Yes [id number] 50mg Q.5D Take 1 Ke lsey HCl 50 MG 1-11 tablet (50 Seyb old oral Tablet 00:00: mg total) - 00 by mouth 2 Externa times l daily as needed for pain Ondansetron 2022-0 Yes [id number] 4mg Q.60122214 Take 1 Rachna HCl 4 MG 1-11 [id number] tablet (4 Seybold oral Tablet 00:00: 3D mg total) - 00 by mouth Externa every 8 l hours as needed for nausea Insulin 2022-0 Yes [id number] 28U Inject 28 K elsey Glargine, 2 1-11 units into Se [facility] Unit Dial, 00:00: the skin - (Toujeo Max 00 daily Externa SoloStar) l 300 UNIT/ML subcutaneou s Solution Pen-injecto r Tramadol 2022-0 Yes [id number] 50mg Q.5D Take 1 Ke lsey HCl 50 MG 1-11 tablet (50 Seyb old oral Tablet 00:00: mg total) - 00 by mouth 2 Externa times l daily as needed for pain Ondansetron 2022-0 Yes [id number] 4mg Q.[id number] Take 1 Rachna HCl 4 MG 1-11 [id number] tablet (4 Seybold oral Tablet 00:00: 3D mg total) - 00 by mouth Externa every 8 l hours as needed for nausea Insulin 2022-0 Yes [id number] 28U Inject 28 K elsey Glargine, 2 1-11 units into Se [facility]bold Unit Dial, 00:00: the skin - (Toujeo Max 00 daily Externa SoloStar) l 300 UNIT/ML subcutaneou s Solution Pen-injecto r Tramadol Yes [id number] 50mg Q.5D Take 1 Ke lsey HCl 50 MG -11 tablet (50 Seyb old oral Tablet 00:00: mg total) - 00 by mouth 2 Externa times l daily as needed for pain Ondansetron Yes [id number] 4mg Q.[id number] Take 1 Rachna HCl 4 MG -11 [id number] tablet (4 Seybold oral Tablet 00:00: 3D mg total) - 00 by mouth Externa every 8 l hours as needed for nausea Insulin 2022- No [id number] 28U Inject 28 Rachna Glargine, 2 1-11 03-15 units into S eybold Unit Dial, 00:00: 00:00 the skin - (Toujeo Max 00 :00 daily Externa SoloStar) l 300 UNIT/ML subcutaneou s Solution Pen-injecto r Ondansetron 2022- No [id number] 4mg Q.87196164 Take 1 Rachna HCl 4 MG -11 03-02 [id number] tablet (4 Seybold oral Tablet 00:00: 00:00 3D mg total) - 00 :00 by mouth Externa every 8 l hours as needed for nausea Pantoprazol 2021-09 Yes 40mg 2 tablets K elsey e Sodium 20 -17 (40 mg Seybol d MG oral 00:00: total). - Tablet 00 Externa Delayed l Response Pantoprazol 2021-09- No 40mg 2 tablets Rachna e Sodium 20 2-17 09-05 (40 mg Seybo ld MG oral 00:00: 00:00 total). - Tablet 00 :00 Externa Delayed l Response Lisinopril 2021-09 Yes 20mg Take 20 mg K elsey 20 MG oral 1-04 by mouth Seybo ld Tablet 00:00: daily - 00 Externa l Lisinopril 2021-09 Yes 20mg Take 20 mg K elsey 20 MG oral 1-04 by mouth Seybo ld Tablet 00:00: daily - 00 Externa l Lisinopril 2021-09 Yes 20mg Take 20 mg K elsey 20 MG oral 1-04 by mouth Seybo ld Tablet 00:00: daily Externa l Lisinopril 2021-09 Yes 20mg Take 20 mg K elsey 20 MG oral 1-04 by mouth Seybo ld Tablet 00:00: daily Externa l Lisinopril 2021-09 Yes 20mg Take 20 mg K elsey 20 MG oral 1-04 by mouth Seybo ld Tablet 00:00: daily - 00 Externa l Lisinopril 2021-09 Yes 20mg Take 20 mg K elsey 20 MG oral 1-04 by mouth Seybo ld Tablet 00:00: daily Externa l Lisinopril 2021-09 Yes 20mg Take 20 mg K elsey 20 MG oral 1-04 by mouth Seybo ld Tablet 00:00: daily Externa l Lisinopril 2021-09 Yes 20mg Take 20 mg K elsey 20 MG oral 1-04 by mouth Seybo ld Tablet 00:00: daily Externa l Lisinopril 2021-09 Yes 20mg Take 20 mg K elsey 20 MG oral 1-04 by mouth Seybo ld Tablet 00:00: daily Externa l Lisinopril 2021-09- No 20mg Take 20 mg Rachna 20 MG oral 1-04 -22 by mouth Seyb old Tablet 00:00: 00:00 daily - 00 :00 Externa l Toujeo Max 2021-09- No 28U Inject 28 K elsey SoloStar 04 01-11 units into Seyb old 300 UNIT/ML 00:00: 00:00 the skin - subcutaneou 00 :00 once Externa s Solution l Pen-injecto r acetaminoph 2021-09 Yes 1,000 mg = Memoria en 500 mg 0-30 2 tab, PO, l oral 18:54: Q6H, PRN [place] tablet. 00 Fever, X 10 day, # 80 tab, 0 Refill(s), Pharmacy: [id number], 162.56, cm, 06/23/22 15:26:00 CDT, Height, 69.001, kg, 06/23/22 15:26:00 CDT, Weight methocarbam 2021-09 Yes 500 mg = 1 Memoria ol 500 mg 0-30 tab, PO, l oral tablet 18:49: TID, X 14 H ermann day, # 42 tab, 0 Refill(s), Pharmacy: [id number], 162.56, cm, 06/23/22 15:26:00 CDT, Height, 69.001, kg, 06/23/22 15:26:00 CDT, Weight ceFAZolin 2 2021-09 Yes IV, Memori a g/20 mL 0-29 Q8H-06, 0 l intravenous 21:18: Refill(s) H ermann folic acid 2021-09 Yes 1 mg = 1 Mem oria 1 mg oral 0-29 tab, PO, l tablet 21:18: Daily, # Dayo 00 90 tab, 0 Refill(s), Pharmacy: [id number], 162.56, cm, 06/23/22 15:26:00 CDT, Height, 69.001, kg, 06/23/22 15:26:00 CDT, Weight pantoprazol 2021-09 Yes 40 mg = 1 M emoria e 40 mg 0-29 tab, PO, l oral 21:18: Daily, # [place] enteric 00 90 tab, 0 coated Refill(s), tablet Pharmacy: [id number], 162.56, cm, 06/23/22 15:26:00 CDT, Height, 69.001, kg, 06/23/22 15:26:00 CDT, Weight Pantoprazol 2021-09 Yes 40mg Take 40 mg [...] 00:00: daily - 00 Externa l Pantoprazol 2021-09- No 40mg Take 40 mg Rachna e Sodium 40 0-29 03-02 by mouth Sey bold MG oral 00:00: 00:00 daily - Tablet 00 :00 Externa Delayed l Response Folic Acid 2021-09- No 1mg Take 1 mg K elsey 1 MG oral 0-29 03-02 by mouth Seybo ld tablet 00:00: 00:00 daily - 00 :00 Externa l Adult 2021-09 Yes Notes: Memoria Parenteral 0-24 Must use l Nutrition 03:00: 1.2 micron He ann filter AND Peripheral Lipids (PPN not should [...] Duration: 30 day, Stop date: 07/25/22 14:51:00 COMMUNICATIONS OPERATOR, 0 glucagon 2021-09 Yes 1 mg, Memoria 0-23 Route: IM, l 20:52: Drug form: Dayo 00 PDR/INJ, PRN, Dosing Weight 69.001, kg, PRN Blood Glucose Results, Start date: 06/25/22 15:52:00 CDT, Duration: 30 day, Stop date: 07/25/22 14:51:00 COMMUNICATIONS OPERATOR, 0 insulin 2021-09 Yes Notes: Memoria lispro 0-23 (Same as: l 20:52: Humalog) Roll in palms of hands gently; Do not shake vigorously . WASTE: F/P - Black; E - Municipal Trash Bin Stable for 28 days at room temperatur e. Expires in days from ____Date potassium 2021-09 No Notes: Memori a chloride 0-23 (Same as: l 13:00: KCL) Infuse over 2 hours. Adult 2021-09 No 1 mL, Memoria Parenteral 0-23 Rate: l Nutrition 03:00: Titrate, Herm malorie Standard - Dosing Peripheral Weight (PPN not 69.001, TPN) 1 mL kg, Route: IV, Total Volume: 1 mL, Start Date: 06/24/22 22:00:00 CDT, Duration: 24 hr, Stop date: 06/25/22 21:59:00 CDT, Replace Every: 24 hr Adult 2021-09 No 1 mL, Memoria Parenteral 0-23 Rate: l Nutrition 03:00: Titrate, Herm malorie Custom - 00 Dosing Peripheral Weight (PPN [...] moria 0-22 infuse l 23:00: over 2.5 [place] 00 hours For adult patients only: Round [...] Duration: 30 day, Stop date: 07/24/22 13:51:00 COMMUNICATIONS OPERATOR, BSA: 1.78 m2, 0 D5W 1,000 2021-09 No 1,000 mL, Mem oria mL 0-22 Rate: 125 l 18:09: ml/hr, Dayo 00 Infuse over: 8 hr, Route: IV, Dosing Weight 69.001 kg, Total Volume: 1,000, Start date: 06/24/22 13:09:00 CDT, Duration: 30 day, Stop date: 07/24/22 13:08:00 COMMUNICATIONS OPERATOR, BSA: 1.78 m2, 0 potassium 2021-09 No [...] 0-22 Rate: l Nutrition 13:11: Titrate, Herm malorie Dosing Peripheral Weight (PPN not 69.001, TPN) 1 mL kg, Route: IV, Total Volume: 1 mL, Start Date: 06/24/22 8:11:00 CDT, Duration: 24 hr, Stop date: 06/25/22 8:10:00 CDT vancomycin 2021-09 No 2000 mg: Me moria 0-22 infuse l 11:00: over 2.5 Dayo 00 hours senna 2021-09 Yes Notes: Memoria 0-22 (Same as: l 02:00: Senokot) Dayo 00 Reglan 2021-09 Yes Notes: Memoria 0-21 (Same as: l 23:00: Reglan) [place] cefepime + 2021-09 Yes Notes: Memor ia sterile 0-21 (Same As: l water 10 mL 21:00: Maxipime) H ermann 00 MEDICATION WASTE Product Size: 1000 mg Product Wasted: ___ mg Flagyl 2021-09 Yes Notes: Memoria 0-21 (Same as: l 21:00: Flagyl) [place] Avoid alcohol. vancomycin 2021-09 No 2000 mg: Me moria + Sodium 0-21 infuse l Chloride 21:00: over 2.5 Monica nn 0.9% IV 250 00 hours For mL adult patients only: Round to nearest 250 mg per Medical Staff approval MEDICATION WASTE Product Size: 1000 mg Product Wasted: ___ mg Vancomycin 2021-09 Yes Notes: [facility]- Vancomycin l Dosing 20:27: Pharmacy Dayo Consult [...] l 80 mg + 20:21: reconstitu Herm malorie Sodium 00 te with 10 Chloride ml 0.9% 0.9% IV 100 sodium mL chloride and push over 2 minutes. 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, 0 ondansetron 2021-09 Yes Notes: Yung ami 0-21 (Same as: l 20:18: Zofran) MEDICATION WASTE Product Size: 4 mg Product Wasted: ___ mg melatonin 2021-09 Yes Notes: [facility] a 0-21 (Same as: l 20:18: Melatonin) fluconazole 2021-09 Yes 200 mg = Me moria 0-21 100 mL, l 15:15: IV, [id number], 0 Refill(s) metFORMIN 2021-09 Yes 750 mg = 1 Me moria 750 mg oral 0-19 tab, PO, l tablet, 08:47: Daily, 00 with release evening meal, # 30 tab, 0 Refill(s) Saline 2021-09 No Notes: [facility] Flush 0.9% 0-19 (Same as: l 03:29: BD Posiflush) pantoprazol 2021-09 No Notes: For Memoria e 0-19 IV push l 03:29: reconstitu [place] te with 10 ml 0.9% sodium chloride and push over 2 minutes. (Same as: Protonix) pantoprazol 2021-09 No Notes: For [facility]oria e additive 0-19 IV push l 80 mg + 03:29: reconstitu [facility] malorie Sodium 00 te with 10 Chloride ml [...] 10 l microgram + 03:29: ml/hr, Herm malorie Sodium Infuse Chloride over: 10 0.9% IV 99 [...] mg Metformin 2021-09 Yes 750mg Take 750 Jeromy sey HCl ER 750 0-19 mg by [place] MG oral 00:00: mouth - TABLET SR 00 daily Externa 24 HR l Metformin 2021-09 Yes 750mg Take 750 [place] sey HCl ER 750 0-19 mg by [place] MG oral 00:00: mouth - TABLET SR 00 daily Externa 24 HR l Metformin 2021-09 Yes 750mg Take 750 [place] sey HCl ER 750 0-19 mg by [place] MG oral 00:00: mouth - TABLET SR 00 daily Externa 24 HR l Metformin 2021-09 Yes 750mg Take 750 [place] sey HCl ER 750 0-19 mg by [place] MG oral 00:00: mouth - TABLET SR 00 daily Externa 24 HR l Metformin 2021-09 No 750mg Take 750 [place] HCl ER 750 0-19 02-21 mg by [place] MG oral 00:00: 00:00 mouth - TABLET SR 00 :00 daily Externa 24 HR l ondansetron No 4mg 4 mg, Slow [facility] (ZOFRAN 8-15 08-15 IV Push, ity of (PF)) 23:00: 23:46 ONCE, 1 [place] injection 4 00 :00 dose, On Medi lamine mg Mon Branch 04/17/22 at 1800, LISA morpHINE (4 2021- No 4mg 4 mg, Slow [facility] mg/mL) 04-17 IV Push, ity of injection 4 23:00: 23:50 ONCE, 1 [place] mg 00 :00 dose, On Medical Mon Branch 04/17/22 at 1800, STAT NaCl 0.9% 2021- No 1000mL at 999 Uni vers (NS) bolus 04-17 mL/hr, ity of infusion 22:45: 23:45 1,000 mL, [place] 1,000 mL 00 :00 IV Medical Infusion, Branch ONCE, 1 dose, On [facility] 04/17/22 at 1745, LISA ketorolac No 30mg 30 mg, Unive rs (TORADOL) 04-17 Slow IV ity of injection 22:15: 22:13 Push, [place] 30 mg 00 :00 ONCE, 1 Medical dose, On Branch [facility] 04/17/22 at 1715, LISA clotrimazol Yes [id number] 1{appli Insert 1 Univers e 1 % 4-23 cator} Applicator ity of vaginal 00:00: into [place] cream 00 vagina at Medical bedtime. [place] clotrimazol Yes [id number] 1{appli Insert 1 Univers e 1 % 4-23 cator} Applicator ity of vaginal 00:00: into [place] cream 00 vagina at Medical bedtime. [place] clotrimazol Yes [id number] 1{appli Insert 1 Univers e 1 % 4-23 cator} Applicator ity of vaginal 00:00: into [place] cream 00 vagina at Medical bedtime. [place] clotrimazol Yes [id number] 1{appli Insert 1 Univers e 1 % 4-23 cator} Applicator ity of vaginal 00:00: into [place] cream 00 vagina at Medical bedtime. [place] clotrimazol Yes [id number] 1{appli Insert 1 Univers e 1 % 4-23 cator} Applicator ity of vaginal 00:00: into [place] cream 00 vagina at Medical bedtime. Branch clotrimazol Yes [id number] 1{appli Insert 1 Univers e 1 % 4-23 cator} Applicator ity of vaginal 00:00: into [place] cream 00 vagina at Medical bedtime. Branch clotrimazol Yes [id number] 1{appli Insert 1 Univers e 1 % 4-23 cator} Applicator ity of vaginal 00:00: into [place] cream 00 vagina at Medical bedtime. Branch fluconazole 2020- No [id number] 150mg Take 1 [facility] (DIFLUCAN) 4-23 05-16 tablet by ity of 150 mg 00:00: 04:59 mouth [place] tablet 00 :00 weekly for Medical 4 doses. Branch fluconazole 2020- No [id number] 150mg Take 1 Univers (DIFLUCAN) 4-23 05-16 tablet by ity of 150 mg 00:00: 04:59 mouth [place] tablet 00 :00 weekly for Medical 4 doses. Branch JARDIANCE 0 Yes Univers 3-05 ity of 00:00: Medical Branch lisinopriL 0 Yes Univers 10 mg 3-05 ity of tablet 00:00: Medical Branch JARDIANCE 0 Yes Univers 3-05 ity of 00:00: Medical Branch lisinopriL 0 Yes [facility] 10 mg 3-05 ity of tablet 00:00: Medical Branch JARDIANCE 2020-0 Yes Univers 3-05 ity of 00:00: Medical Branch lisinopriL 2020-0 Yes [facility] 10 mg 3-05 ity of tablet 00:00: Medical Branch JARDIANCE 2020-0 Yes Univers 3-05 ity of 00:00: Medical Branch lisinopriL 2020-0 Yes [facility] 10 mg 3-05 ity of tablet 00:00: Medical Branch JARDIANCE 2020-0 Yes Univers 3-05 ity of 00:00: Medical Branch lisinopriL 2020-0 Yes [facility] 10 mg 3-05 ity of tablet 00:00: Medical Branch JARDIANCE 2020-0 Yes Univers 3-05 ity of 00:00: Medical Branch lisinopriL 2020-0 Yes [facility] 10 mg 3-05 ity of tablet 00:00: Medical Branch JARDIANCE 2020-0 Yes Univers 3-05 ity of 00:00: Medical Branch lisinopriL 2020-0 Yes Univers 10 mg 3-05 ity of tablet 00:00: [facility] clotrimazol 0 Yes [id number] 1{appli Insert 1 Univers e 1 % 6-24 cator} Applicator ity of vaginal 00:00: into [place] cream 00 vagina at Medical bedtime. [place] clotrimazol Yes [id number] 1{appli Insert 1 Univers e 1 % 6-24 cator} Applicator ity of vaginal 00:00: into [place] cream 00 vagina at Medical bedtime. [place] clotrimazol Yes [id number] 1{appli Insert 1 Univers e 1 % 6-24 cator} Applicator ity of vaginal 00:00: into [place] cream 00 vagina at Medical bedtime. [place] clotrimazol Yes [id number] 1{appli Insert 1 Univers e 1 % 6-24 cator} Applicator ity of vaginal 00:00: into [place] cream 00 vagina at Medical bedtime. [place] clotrimazol Yes [id number] 1{appli Insert 1 Univers e 1 % 6-24 cator} Applicator ity of vaginal 00:00: into [place] cream 00 vagina at Medical bedtime. [place] clotrimazol Yes [id number] 1{appli Insert 1 Univers e 1 % 6-24 cator} Applicator ity of vaginal 00:00: into [place] cream 00 vagina at Medical bedtime. [place] clotrimazol Yes [id number] 1{appli Insert 1 Univers e 1 % 6-24 cator} Applicator ity of vaginal 00:00: into [place] cream 00 vagina at Medical bedtime. [place] clotrimazol Yes [id number] 1{appli Insert 1 Univers e 1 % 6-24 cator} Applicator ity of vaginal 00:00: into [place] cream 00 vagina at Medical bedtime. [place] clotrimazol Yes [id number] 1{appli Insert 1 Univers e 1 % 6-24 cator} Applicator ity of vaginal 00:00: into [place] cream 00 vagina at Medical bedtime. [place] clotrimazol 0 Yes [id number] 1{appli Insert 1 Univers e 1 % 6-24 cator} Applicator ity of vaginal 00:00: into [place] cream 00 vagina at Medical bedtime. [place] clotrimazol Yes [id number] 1{appli Insert 1 Univers e 1 % 6-24 cator} Applicator ity of vaginal 00:00: into [place] cream 00 vagina at Medical bedtime. [place] fluconazole 2020- No [id number] 150mg Take 1 Univers (DIFLUCAN) 6-24 02-25 tablet by ity of 150 mg 00:00: 04:59 mouth [place] tablet 00 :00 now for 1 Medical dose. [place] fluconazole 2019- No [id number] 150mg Take 1 Univers (DIFLUCAN) 02-24-25 tablet by ity of 150 mg 00:00: 04:59 mouth [place] tablet 00 :00 now for 1 Medical dose. [place] clotrimazol Yes [id number] 1{appli Insert 1 Univers e 1 % 5-18 cator} Applicator ity of vaginal 00:00: into [place] cream 00 vagina at Medical bedtime. [place] clotrimazol Yes [id number] 1{appli Insert 1 Univers e 1 % 5-18 cator} Applicator ity of vaginal 00:00: into [place] cream 00 vagina at Medical bedtime. [place] clotrimazol 0 Yes [id number] 1{appli Insert 1 Univers e 1 % 5-18 cator} Applicator ity of vaginal 00:00: into [place] cream 00 vagina at Medical bedtime. [place] clotrimazol 0 Yes [id number] 1{appli Insert 1 Univers e 1 % 5-18 cator} Applicator ity of vaginal 00:00: into [place] cream 00 vagina at Medical bedtime. [place] clotrimazol Yes [id number] 1{appli Insert 1 Univers e 1 % 5-18 cator} Applicator ity of vaginal 00:00: into [place] cream 00 vagina at Medical bedtime. [place] clotrimazol Yes [id number] 1{appli Insert 1 Univers e 1 % 5-18 cator} Applicator ity of vaginal 00:00: into [place] cream 00 vagina at Medical bedtime. Branch clotrimazol 2020- No [id number] 1{appli Insert 1 Univers e 1 % 5-18 23 cator} Applicator ity o f vaginal 00:00: 00:00 into [place] cream 00 :00 vagina at Medical bedtime. Branch clotrimazol 2020- No [id number] 1{appli Insert 1 Univers e 1 % 5-18 12-24 cator} Applicator ity o f vaginal 00:00: 00:00 into [place] cream 00 :00 vagina at Medical bedtime. Branch azithromyci Yes [id number] 250mg Take 1 Univers n 4-25 tablet by ity of (ZITHROMAX 00:00: mouth [place] Z-KANNAN) 250 00 SEE-INSTRU Med ical mg tablet CTIONS. Branch Take 500 mg day 1, then 250 mg days 2 to 5. albuterol Yes [id number] 2{puff} Inhale 2 Univers 90 4-25 Puffs ity of mcg/actuati 00:00: every 4 [place] on inhaler 00 (four) Medical hours as Branch needed for Wheezing or Shortness of Breath. predniSONE Yes [id number] 10mg Take 1 U nivers 10 mg 4-25 tablet by ity of tablet 00:00: mouth [place] 00 daily. Medical Branch azithromyci Yes [id number] 250mg Take 1 Univers n 4-25 tablet by ity of (ZITHROMAX 00:00: mouth [place] Z-KANNAN) 250 00 SEE-INSTRU Med ical mg tablet CTIONS. Branch Take 500 mg day 1, then 250 mg days 2 to 5. albuterol Yes [id number] 2{puff} Inhale 2 Univers 90 4-25 Puffs ity of mcg/actuati 00:00: every 4 [place] on inhaler 00 (four) Medical hours as Branch needed for Wheezing or Shortness of Breath. predniSONE 2020-0 Yes [id number] 10mg Take 1 U nivers 10 mg 4-25 tablet by ity of tablet 00:00: mouth [place] 00 daily. Medical Branch azithromyci 2020-0 Yes [id number] 250mg Take 1 Univers n 4-25 tablet by ity of (ZITHROMAX 00:00: mouth [place] Z-KANNAN) 250 00 SEE-INSTRU Med ical mg tablet CTIONS. Branch Take 500 mg day 1, then 250 mg days 2 to 5. albuterol 2020-0 Yes [id number] 2{puff} Inhale 2 Univers 90 4-25 Puffs ity of mcg/actuati 00:00: every 4 [place] on inhaler 00 (four) Medical hours as Branch needed for Wheezing or Shortness of Breath. predniSONE 2020-0 Yes [id number] 10mg Take 1 U nivers 10 mg 4-25 tablet by ity of tablet 00:00: mouth [place] 00 daily. Medical Branch azithromyci 2020-0 Yes [id number] 250mg Take 1 Univers n 4-25 tablet by ity of (ZITHROMAX 00:00: mouth [place] Z-KANNAN) 250 00 SEE-INSTRU Med ical mg tablet CTIONS. Branch Take 500 mg day 1, then 250 mg days 2 to 5. albuterol 2020-0 Yes [id number] 2{puff} Inhale 2 Univers 90 4-25 Puffs ity of mcg/actuati 00:00: every 4 [place] on inhaler 00 (four) Medical hours as Branch needed for Wheezing or Shortness of Breath. predniSONE 2020-0 Yes [id number] 10mg Take 1 U nivers 10 mg 4-25 tablet by ity of tablet 00:00: mouth [place] 00 daily. Medical Branch albuterol 2020-0 Yes [id number] 2{puff} Inhale 2 Univers 90 4-25 Puffs ity of mcg/actuati 00:00: every 4 [place] on inhaler 00 (four) Medical hours as Branch needed for Wheezing or Shortness of Breath. albuterol 2020-0 Yes [id number] 2{puff} Inhale 2 [facility] 90 4-25 Puffs ity of mcg/actuati 00:00: every 4 [place] on inhaler 00 (four) Medical hours as Branch needed for Wheezing or Shortness of Breath. albuterol 2020-0 Yes [id number] 2{puff} Inhale 2 Univers 90 4-25 Puffs ity of mcg/actuati 00:00: every 4 [place] on inhaler 00 (four) Medical hours as Branch needed for Wheezing or Shortness of Breath. albuterol 2020-0 Yes [id number] 2{puff} Inhale 2 Univers 90 4-25 Puffs ity of mcg/actuati 00:00: every 4 [place] on inhaler 00 (four) Medical hours as Branch needed for Wheezing or Shortness of Breath. albuterol 2019-0 Yes [id number] 2{puff} Inhale 2 Univers 90 4-25 Puffs ity of mcg/actuati 00:00: every 4 [place] on inhaler 00 (four) Medical hours as Branch needed for Wheezing or Shortness of Breath. albuterol 2019-0 Yes [id number] 2{puff} Inhale 2 Univers 90 4-25 Puffs ity of mcg/actuati 00:00: every 4 [place] on inhaler 00 (four) Medical hours as Branch needed for Wheezing or Shortness of Breath. albuterol 2019-0 Yes [id number] 2{puff} Inhale 2 Univers 90 4-25 Puffs ity of mcg/actuati 00:00: every 4 [place] on inhaler 00 (four) Medical hours as Branch needed for Wheezing or Shortness of Breath. azithromyci 2019-0 Yes [id number] 250mg Take 1 Univers n 4-25 tablet by ity of (ZITHROMAX 00:00: mouth [place] Z-KANNAN) 250 00 SEE-INSTRU Med ical mg tablet CTIONS. Branch Take 500 mg day 1, then 250 mg days 2 to 5. albuterol 2019-0 Yes [id number] 2{puff} Inhale 2 Univers 90 4-25 Puffs ity of mcg/actuati 00:00: every 4 [place] on inhaler 00 (four) Medical hours as Branch needed for Wheezing or Shortness of Breath. predniSONE 2020-0 Yes [id number] 10mg Take 1 U nivers 10 mg 4-25 tablet by ity of tablet 00:00: mouth [place] 00 daily. Medical Branch azithromyci 2020-0 Yes [id number] 250mg Take 1 Univers n 4-25 tablet by ity of (ZITHROMAX 00:00: mouth [place] Z-KANNAN) 250 00 SEE-INSTRU Med ical mg tablet CTIONS. Branch Take 500 mg day 1, then 250 mg days 2 to 5. albuterol 2020-0 Yes [id number] 2{puff} Inhale 2 Univers 90 4-25 Puffs ity of mcg/actuati 00:00: every 4 [place] on inhaler 00 (four) Medical hours as Branch needed for Wheezing or Shortness of Breath. predniSONE Yes [id number] 10mg Take 1 U nivers 10 mg 4-25 tablet by ity of tablet 00:00: mouth [place] 00 daily. Medical Branch azithromyci Yes [id number] 250mg Take 1 Univers n 4-25 tablet by ity of (ZITHROMAX 00:00: mouth [place] Z-KANNAN) 250 00 SEE-INSTRU Med ical mg tablet CTIONS. Branch Take 500 mg day 1, then 250 mg days 2 to 5. albuterol Yes [id number] 2{puff} Inhale 2 Univers 90 4-25 Puffs ity of mcg/actuati 00:00: every 4 [place] on inhaler 00 (four) Medical hours as Branch needed for Wheezing or Shortness of Breath. predniSONE Yes [id number] 10mg Take 1 U nivers 10 mg 4-25 tablet by ity of tablet 00:00: mouth [place] 00 daily. Medical Branch azithromyci 2020- No [id number] 250mg Take 1 Univers n 4-25 04-23 tablet by ity of (ZITHROMAX 00:00: 00:00 mouth [place] Z-KANNAN) 250 00 :00 SEE-INSTRU Med ical mg tablet CTIONS. Branch Take 500 mg day 1, then 250 mg days 2 to 5. predniSONE 2020- No [id number] 10mg Take 1 Univers 10 mg 4-25 04-23 tablet by ity of tablet 00:00: 00:00 mouth [place] 00 :00 daily. Medical Branch azithromyci 2020- No [id number] 250mg Take 1 Univers n 4-25 04-23 tablet by ity of (ZITHROMAX 00:00: 00:00 mouth [place] Z-KANNAN) 250 00 :00 SEE-INSTRU Med ical mg tablet CTIONS. Branch Take 500 mg day 1, then 250 mg days 2 to 5. predniSONE 2020- No [id number] 10mg Take 1 Univers 10 mg 4-25 04-23 tablet by ity of tablet 00:00: 00:00 mouth [place] 00 :00 daily. Medical Branch metoclopram 2019-0 Yes [id number] 10mg Take 1 Univers stephany HCl 10 4-20 tablet by ity of mg tablet 00:00: mouth [place] 00 every 6 Medical (six) Branch hours as needed for Nausea and Vomiting (N/V). metoclopram 2019-0 Yes [id number] 10mg Take 1 Univers stephany HCl 10 4-20 tablet by ity of mg tablet 00:00: mouth [place] 00 every 6 Medical (six) Branch hours as needed for Nausea and Vomiting (N/V). metoclopram 2019-0 Yes [id number] 10mg Take 1 Univers stephany HCl 10 4-20 tablet by ity of mg tablet 00:00: mouth [place] 00 every 6 Medical (six) Branch hours as needed for Nausea and Vomiting (N/V). metoclopram 2019-0 Yes [id number] 10mg Take 1 Univers stephany HCl 10 4-20 tablet by ity of mg tablet 00:00: mouth [place] 00 every 6 Medical (six) Branch hours as needed for Nausea and Vomiting (N/V). metoclopram 2019-0 Yes [id number] 10mg Take 1 Univers stephany HCl 10 4-20 tablet by ity of mg tablet 00:00: mouth [place] 00 every 6 Medical (six) Branch hours as needed for Nausea and Vomiting (N/V). metoclopram 2019-0 Yes [id number] 10mg Take 1 Univers stephany HCl 10 4-20 tablet by ity of mg tablet 00:00: mouth [place] 00 every 6 Medical (six) Branch hours as needed for Nausea and Vomiting (N/V). metoclopram 2019-0 Yes [id number] 10mg Take 1 Univers stephany HCl 10 4-20 tablet by ity of mg tablet 00:00: mouth [place] 00 every 6 Medical (six) Branch hours as needed for Nausea and Vomiting (N/V). metoclopram 2019-0 Yes [id number] 10mg Take 1 Univers stephany HCl 10 4-20 tablet by ity of mg tablet 00:00: mouth [place] 00 every 6 Medical (six) Branch hours as needed for Nausea and Vomiting (N/V). metoclopram 2019-0 Yes [id number] 10mg Take 1 Univers stephany HCl 10 4-20 tablet by ity of mg tablet 00:00: mouth [place] 00 every 6 Medical (six) Branch hours as needed for Nausea and Vomiting (N/V). metoclopram 2019-0 Yes [id number] 10mg Take 1 Univers stephany HCl 10 4-20 tablet by ity of mg tablet 00:00: mouth [place] 00 every 6 Medical (six) Branch hours as needed for Nausea and Vomiting (N/V). metoclopram 2019-0 Yes [id number] 10mg Take 1 Univers stephany HCl 10 4-20 tablet by ity of mg tablet 00:00: mouth [place] 00 every 6 Medical (six) Branch hours as needed for Nausea and Vomiting (N/V). metoclopram 2019-0 Yes [id number] 10mg Take 1 Univers stephany HCl 10 4-20 tablet by ity of mg tablet 00:00: mouth [place] 00 every 6 Medical (six) Branch hours as needed for Nausea and Vomiting (N/V). metoclopram 2019-0 Yes [id number] 10mg Take 1 Univers stephany HCl 10 4-20 tablet by ity of mg tablet 00:00: mouth [place] 00 every 6 Medical (six) Branch hours as needed for Nausea and Vomiting (N/V). metoclopram 2019-0 Yes [id number] 10mg Take 1 Univers stephany HCl 10 4-20 tablet by ity of mg tablet 00:00: mouth [place] 00 every 6 Medical (six) Branch hours as needed for Nausea and Vomiting (N/V). metoclopram 2019-0 Yes [id number] 10mg Take 1 Univers stephany HCl 10 4-20 tablet by ity of mg tablet 00:00: mouth [place] 00 every 6 Medical (six) Branch hours as needed for Nausea and Vomiting (N/V). lactobacill 2019-0 Yes [id number] 1{tbl} Take 1 Univers us 3-21 tablet by ity of acidophilus 00:00: mouth 2 [place] 25 million 00 (two) Medical cell -100 times Branch mg captab daily. lactobacill 2019-0 Yes [id number] 1{tbl} Take 1 Univers us 3-21 tablet by ity of acidophilus 00:00: mouth 2 [place] 25 million 00 (two) Medical cell -100 times Branch mg captab daily. lactobacill 2019-0 Yes [id number] 1{tbl} Take 1 [facility] us 3-21 tablet by ity of acidophilus 00:00: mouth 2 [place] 25 million 00 (two) Medical cell -100 times Branch mg captab daily. lactobacill 2018- Yes [id number] 1{tbl} Take 1 [facility] us 3-21 tablet by ity of acidophilus 00:00: mouth 2 [place] 25 million 00 (two) Medical cell -100 times Branch mg captab daily. lactobacill 2018- Yes [id number] 1{tbl} Take 1 [facility] us 3-21 tablet by ity of acidophilus 00:00: mouth 2 [place] 25 million 00 (two) Medical cell -100 times Branch mg captab daily. lactobacill 2018- Yes [id number] 1{tbl} Take 1 [facility] us 3-21 tablet by ity of acidophilus 00:00: mouth 2 [place] 25 million 00 (two) Medical cell -100 times Branch mg captab daily. lactobacill Yes [id number] 1{tbl} Take 1 [facility] us 3-21 tablet by ity of acidophilus 00:00: mouth 2 [place] 25 million 00 (two) Medical cell -100 times Branch mg captab daily. lactobacill Yes [id number] 1{tbl} Take 1 [facility] us 3-21 tablet by ity of acidophilus 00:00: mouth 2 [place] 25 million 00 (two) Medical cell -100 times Branch mg captab daily. lactobacill 2018- Yes [id number] 1{tbl} Take 1 [facility] us 3-21 tablet by ity of acidophilus 00:00: mouth 2 [place] 25 million 00 (two) Medical cell -100 times Branch mg captab daily. lactobacill Yes [id number] 1{tbl} Take 1 [facility] us 3-21 tablet by ity of acidophilus 00:00: mouth 2 [place] 25 million 00 (two) Medical cell -100 times Branch mg captab daily. lactobacill 2018-0 Yes [id number] 1{tbl} Take 1 [facility] us 3-21 tablet by ity of acidophilus 00:00: mouth 2 [place] 25 million 00 (two) Medical cell -100 times Branch mg captab daily. lactobacill 2018- Yes [id number] 1{tbl} Take 1 [facility] us 3-21 tablet by ity of acidophilus 00:00: mouth 2 [place] 25 million 00 (two) Medical cell -100 times Branch mg captab daily. lactobacill 2018-0 Yes [id number] 1{tbl} Take 1 [facility] us 3-21 tablet by ity of acidophilus 00:00: mouth 2 [place] 25 million 00 (two) Medical cell -100 times Branch mg captab daily. lactobacill 2018-0 Yes [id number] 1{tbl} Take 1 [facility] us 3-21 tablet by ity of acidophilus 00:00: mouth 2 [place] 25 million 00 (two) Medical cell -100 times Branch mg captab daily. lactobacill 2018-0 Yes [id number] 1{tbl} Take 1 Univers us 3-21 tablet by ity of acidophilus 00:00: mouth 2 [place] 25 million 00 (two) Medical cell -100 times Branch mg captab daily. aspirin 81 2018-0 Yes [id number] 81mg Take 1 [facility] mg chewable 2-21 tablet by ity of tablet 00:00: mouth [place] 00 daily. Medical Branch pantoprazol 2018-0 Yes [id number] 40mg Take 1 [facility] e 40 mg EC 2-21 tablet by ity of tablet 00:00: mouth [place] 00 daily. Medical Branch aspirin 81 2018-0 Yes [id number] 81mg Take 1 [facility] mg chewable 2-21 tablet by ity of tablet 00:00: mouth [place] 00 daily. Medical Branch pantoprazol 2018-0 Yes [id number] 40mg Take 1 [facility] e 40 mg EC 2-21 tablet by ity of tablet 00:00: mouth [place] 00 daily. Medical Branch aspirin 81 2018-0 Yes [id number] 81mg Take 1 [facility] mg chewable 2-21 tablet by ity of tablet 00:00: mouth [place] 00 daily. Medical Branch pantoprazol 2019-0 Yes [id number] 40mg Take 1 [facility] e 40 mg EC 2-21 tablet by ity of tablet 00:00: mouth [place] 00 daily. Medical Branch aspirin 81 2018-0 Yes [id number] 81mg Take 1 Univers mg chewable 2-21 tablet by ity of tablet 00:00: mouth [place] 00 daily. [facility] Branch pantoprazol 2019-0 Yes [id number] 40mg Take 1 Univers e 40 mg EC 2-21 tablet by ity of tablet 00:00: mouth [place] 00 daily. Medical Branch aspirin 81 2019-0 Yes [id number] 81mg Take 1 [facility] mg chewable 2-21 tablet by ity of tablet 00:00: mouth [place] 00 daily. Medical Branch pantoprazol 2019-0 Yes [id number] 40mg Take 1 [facility] e 40 mg EC 2-21 tablet by ity of tablet 00:00: mouth [place] 00 daily. Medical Branch aspirin 81 2019-0 Yes [id number] 81mg Take 1 [facility] mg chewable 2-21 tablet by ity of tablet 00:00: mouth [place] 00 daily. Medical Branch pantoprazol 2019-0 Yes [id number] 40mg Take 1 [facility] e 40 mg EC 2-21 tablet by ity of tablet 00:00: mouth [place] 00 daily. Medical Branch aspirin 81 2019-0 Yes [id number] 81mg Take 1 [facility] mg chewable 2-21 tablet by ity of tablet 00:00: mouth [place] 00 daily. Medical Branch pantoprazol 2019-0 Yes [id number] 40mg Take 1 [facility] e 40 mg EC 2-21 tablet by ity of tablet 00:00: mouth [place] 00 daily. Medical Branch aspirin 81 2019-0 Yes [id number] 81mg Take 1 [facility] mg chewable 2-21 tablet by ity of tablet 00:00: mouth [place] 00 daily. Medical Branch pantoprazol 2019-0 Yes [id number] 40mg Take 1 [facility] e 40 mg EC 2-21 tablet by ity of tablet 00:00: mouth [place] 00 daily. Medical Branch aspirin 81 2019-0 Yes [id number] 81mg Take 1 [facility] mg chewable 2-21 tablet by ity of tablet 00:00: mouth [place] 00 daily. Medical Branch pantoprazol 2019-0 Yes [id number] 40mg Take 1 [facility] e 40 mg EC 2-21 tablet by ity of tablet 00:00: mouth [place] 00 daily. Medical Branch aspirin 81 2019-0 Yes [id number] 81mg Take 1 [facility] mg chewable 2-21 tablet by ity of tablet 00:00: mouth [place] 00 daily. Medical Branch pantoprazol 2019-0 Yes [id number] 40mg Take 1 [facility] e 40 mg EC 2-21 tablet by ity of tablet 00:00: mouth [place] 00 daily. Medical Branch aspirin 81 2019-0 Yes [id number] 81mg Take 1 [facility] mg chewable 2-21 tablet by ity of tablet 00:00: mouth [place] 00 daily. Medical Branch pantoprazol 2018-0 Yes [id number] 40mg Take 1 [facility] e 40 mg EC 2-21 tablet by ity of tablet 00:00: mouth [place] 00 daily. Medical Branch aspirin 81 2018-0 Yes [id number] 81mg Take 1 [facility] mg chewable 2-21 tablet by ity of tablet 00:00: mouth [place] 00 daily. Medical Branch pantoprazol Yes [id number] 40mg Take 1 [facility] e 40 mg EC 2-21 tablet by ity of tablet 00:00: mouth [place] 00 daily. Medical Branch aspirin 81 0 Yes [id number] 81mg Take 1 [facility] mg chewable 2-21 tablet by ity of tablet 00:00: mouth [place] 00 daily. Medical Branch pantoprazol Yes [id number] 40mg Take 1 [facility] e 40 mg EC 2-21 tablet by ity of tablet 00:00: mouth [place] 00 daily. Medical Branch aspirin 81 Yes [id number] 81mg Take 1 [facility] mg chewable 2-21 tablet by ity of tablet 00:00: mouth [place] 00 daily. Medical Branch pantoprazol Yes [id number] 40mg Take 1 [facility] e 40 mg EC 2-21 tablet by ity of tablet 00:00: mouth [place] 00 daily. Medical Branch aspirin 81 2018-0 Yes [id number] 81mg Take 1 [facility] mg chewable 2-21 tablet by ity of tablet 00:00: mouth [place] 00 daily. Medical Branch pantoprazol 2018- Yes [id number] 40mg Take 1 [facility] e 40 mg EC 2-21 tablet by ity of tablet 00:00: mouth [place] 00 daily. Medical Branch insulin NPH Yes [id number] 14U inject 14 [facility] 100 unit/mL 2-20 Units ity of injection 00:00: under the [place] 00 skin every Medical morning. Branch insulin NPH Yes [id number] 10U inject 10 [facility] 100 unit/mL 2-20 Units ity of injection 00:00: under the [place] 00 skin every Medical evening. Branch metoclopram Yes [id number] 10mg Take 1 [facility] stephany HCl 10 2-20 tablet by ity of mg tablet 00:00: mouth [place] 00 every 6 Medical (six) Branch hours as needed for Nausea and Vomiting (N/V). insulin 2018-0 Yes [id number] Use as Uni vers syringe-nee 2-20 directed ity of dle U-100 1 00:00: [place] ml (INSULIN 00 Medical SYRINGE) 1 Branch mL 29 gauge x 1/2" Syrg metformin 2018-0 Yes [id number] 750mg Take 1 [facility] ER 750 mg 2-20 tablet by ity o f 24 hr 00:00: mouth [place] tablet 00 daily with Medical breakfast. Branch atorvastati Yes [id number] 40mg Take 1 [facility] n 40 mg 2-20 tablet by ity of tablet 00:00: mouth at [place] 00 bedtime. Medical Branch insulin NPH Yes [id number] 14U inject 14 [facility] 100 unit/mL 2-20 Units ity of injection 00:00: under the [place] 00 skin every Medical morning. Branch insulin NPH Yes [id number] 10U inject 10 [facility] 100 unit/mL 2-20 Units ity of injection 00:00: under the [place] 00 skin every Medical evening. Branch metoclopram Yes [id number] 10mg Take 1 [facility] stephany HCl 10 2-20 tablet by ity of mg tablet 00:00: mouth [place] 00 every 6 Medical (six) Branch hours as needed for Nausea and Vomiting (N/V). insulin Yes [id number] Use as Uni vers syringe-nee 2-20 directed ity of dle U-100 1 00:00: [place] ml (INSULIN 00 Medical SYRINGE) 1 Branch mL 29 gauge x 1/2" Syrg metformin 2018-0 Yes [id number] 750mg Take 1 [facility] ER 750 mg 2-20 tablet by ity o f 24 hr 00:00: mouth [place] tablet 00 daily with Medical breakfast. Branch atorvastati Yes [id number] 40mg Take 1 [facility] n 40 mg 2-20 tablet by ity of tablet 00:00: mouth at [place] 00 bedtime. Medical Branch insulin NPH Yes [id number] 14U inject 14 [facility] 100 unit/mL 2-20 Units ity of injection 00:00: under the [place] 00 skin every Medical morning. Branch insulin NPH Yes [id number] 10U inject 10 [facility] 100 unit/mL 2-20 Units ity of injection 00:00: under the [place] 00 skin every Medical evening. Branch metoclopram Yes [id number] 10mg Take 1 [facility] stephany HCl 10 2-20 tablet by ity of mg tablet 00:00: mouth [place] 00 every 6 Medical (six) Branch hours as needed for Nausea and Vomiting (N/V). insulin Yes [id number] Use as Uni vers syringe-nee 2-20 directed ity of dle U-100 1 00:00: [place] ml (INSULIN 00 Medical SYRINGE) 1 Branch mL 29 gauge x 1/2" Syrg metformin Yes [id number] 750mg Take 1 [facility] ER 750 mg 2-20 tablet by ity o f 24 hr 00:00: mouth [place] tablet 00 daily with Medical breakfast. Branch atorvastati Yes [id number] 40mg Take 1 [facility] n 40 mg 2-20 tablet by ity of tablet 00:00: mouth at [place] 00 bedtime. Medical Branch insulin NPH Yes [id number] 14U inject 14 [facility] 100 unit/mL 2-20 Units ity of injection 00:00: under the [place] 00 skin every Medical morning. Branch insulin NPH Yes [id number] 10U inject 10 [facility] 100 unit/mL 2-20 Units ity of injection 00:00: under the [place] 00 skin every Medical evening. Branch metoclopram Yes [id number] 10mg Take 1 [facility] stephany HCl 10 2-20 tablet by ity of mg tablet 00:00: mouth [place] 00 every 6 Medical (six) Branch hours as needed for Nausea and Vomiting (N/V). insulin Yes [id number] Use as Uni vers syringe-nee 2-20 directed ity of dle U-100 1 00:00: [place] ml (INSULIN 00 Medical SYRINGE) 1 Branch mL 29 gauge x 1/2" Syrg metformin 2018-0 Yes [id number] 750mg Take 1 [facility] ER 750 mg 2-20 tablet by ity o f 24 hr 00:00: mouth [place] tablet 00 daily with Medical breakfast. Branch atorvastati Yes [id number] 40mg Take 1 [facility] n 40 mg 2-20 tablet by ity of tablet 00:00: mouth at [place] 00 bedtime. Medical Branch insulin NPH Yes [id number] 14U inject 14 [facility] 100 unit/mL 2-20 Units ity of injection 00:00: under the [place] 00 skin every Medical morning. Branch metoclopram Yes [id number] 10mg Take 1 [facility] stephany HCl 10 2-20 tablet by ity of mg tablet 00:00: mouth [place] 00 every 6 Medical (six) Branch hours as needed for Nausea and Vomiting (N/V). insulin Yes [id number] Use as [facility] vers syringe-nee 2-20 directed ity of dle U-100 1 00:00: [place] ml (INSULIN 00 Medical SYRINGE) 1 Branch mL 29 gauge x 1/2" Syrg metformin Yes [id number] 750mg Take 1 [facility] ER 750 mg 2-20 tablet by ity o f 24 hr 00:00: mouth [place] tablet 00 daily with Medical breakfast. Branch atorvastati Yes [id number] 40mg Take 1 [facility] n 40 mg 2-20 tablet by ity of tablet 00:00: mouth at [place] 00 bedtime. Medical Branch insulin NPH Yes [id number] 14U inject 14 [facility] 100 unit/mL 2-20 Units ity of injection 00:00: under the [place] 00 skin every Medical morning. Branch metoclopram Yes [id number] 10mg Take 1 [facility] stephany HCl 10 2-20 tablet by ity of mg tablet 00:00: mouth [place] 00 every 6 Medical (six) Branch hours as needed for Nausea and Vomiting (N/V). insulin Yes [id number] Use as [facility] vers syringe-nee 2-20 directed ity of dle U-100 1 00:00: [place] ml (INSULIN 00 Medical SYRINGE) 1 Branch mL 29 gauge x 1/2" Syrg metformin Yes [id number] 750mg Take 1 [facility] ER 750 mg 2-20 tablet by ity o f 24 hr 00:00: mouth [place] tablet 00 daily with Medical breakfast. Branch atorvastati Yes [id number] 40mg Take 1 [facility] n 40 mg 2-20 tablet by ity of tablet 00:00: mouth at [place] 00 bedtime. Medical Branch insulin NPH Yes [id number] 14U inject 14 [facility] 100 unit/mL 2-20 Units ity of injection 00:00: under the [place] 00 skin every Medical morning. Branch insulin NPH Yes [id number] 14U inject 14 [facility] 100 unit/mL 2-20 Units ity of injection 00:00: under the [place] 00 skin every Medical morning. Branch metoclopram 0 Yes [id number] 10mg Take 1 [facility] stephany HCl 10 2-20 tablet by ity of mg tablet 00:00: mouth [place] 00 every 6 Medical (six) Branch hours as needed for Nausea and Vomiting (N/V). insulin 2018- Yes [id number] Use as [facility] vers syringe-nee 2-20 directed ity of dle U-100 1 00:00: [place] ml (INSULIN 00 Medical SYRINGE) 1 Branch mL 29 gauge x 1/2" Syrg metformin Yes [id number] 750mg Take 1 [facility] ER 750 mg 2-20 tablet by ity o f 24 hr 00:00: mouth [place] tablet 00 daily with Medical breakfast. Branch atorvastati Yes [id number] 40mg Take 1 [facility] n 40 mg 2-20 tablet by ity of tablet 00:00: mouth at [place] 00 bedtime. Medical Branch insulin NPH 0 Yes [id number] 10U inject 10 [facility] 100 unit/mL 2-20 Units ity of injection 00:00: under the [place] as 00 skin every Medical evening. Branch metoclopram Yes [id number] 10mg Take 1 [facility] stephany HCl 10 2-20 tablet by ity of mg tablet 00:00: mouth [place] 00 every 6 Medical (six) Branch hours as needed for Nausea and Vomiting (N/V). insulin NPH 2018- Yes [id number] 14U inject 14 [facility] 100 unit/mL 2-20 Units ity of injection 00:00: under the [place] 00 skin every Medical morning. Branch metoclopram Yes [id number] 10mg Take 1 [facility] stephany HCl 10 2-20 tablet by ity of mg tablet 00:00: mouth [place] 00 every 6 Medical (six) Branch hours as needed for Nausea and Vomiting (N/V). insulin 2018-0 Yes [id number] Use as [facility] vers syringe-nee 2-20 directed ity of dle U-100 1 00:00: [place] ml (INSULIN 00 Medical SYRINGE) 1 Branch mL 29 gauge x 1/2" Syrg metformin 2018-0 Yes [id number] 750mg Take 1 [facility] ER 750 mg 2-20 tablet by ity o f 24 hr 00:00: mouth [place] tablet 00 daily with Medical breakfast. Branch atorvastati 2018-0 Yes [id number] 40mg Take 1 [facility] n 40 mg 2-20 tablet by ity of tablet 00:00: mouth at [place] 00 bedtime. Medical Branch insulin 2019-0 Yes [id number] Use as [facility] vers syringe-nee 2-20 directed ity of dle U-100 1 00:00: [place] ml (INSULIN 00 Medical SYRINGE) 1 Branch mL 29 gauge x 1/2" Syrg metformin 2018-0 Yes [id number] 750mg Take 1 [facility] ER 750 mg 2-20 tablet by ity o f 24 hr 00:00: mouth [place] tablet 00 daily with Medical breakfast. Branch insulin NPH Yes [id number] 14U inject 14 [facility] 100 unit/mL 2-20 Units ity of injection 00:00: under the [place] 00 skin every Medical morning. Branch metoclopram Yes [id number] 10mg Take 1 [facility] stephany HCl 10 2-20 tablet by ity of mg tablet 00:00: mouth [place] 00 every 6 Medical (six) Branch hours as needed for Nausea and Vomiting (N/V). insulin Yes [id number] Use as [facility] vers syringe-nee 2-20 directed ity of dle U-100 1 00:00: [place] ml (INSULIN 00 Medical SYRINGE) 1 Branch mL 29 gauge x 1/2" Syrg metformin 2018-0 Yes [id number] 750mg Take 1 [facility] ER 750 mg 2-20 tablet by ity o f 24 hr 00:00: mouth [place] tablet 00 daily with Medical breakfast. Branch atorvastati 2018-0 Yes [id number] 40mg Take 1 [facility] n 40 mg 2-20 tablet by ity of tablet 00:00: mouth at [place] 00 bedtime. Medical Branch atorvastati 0 Yes [id number] 40mg Take 1 [facility] n 40 mg 2-20 tablet by ity of tablet 00:00: mouth at [place] 00 bedtime. Medical Branch insulin NPH 2018-0 Yes [id number] 14U inject 14 [facility] 100 unit/mL 2-20 Units ity of injection 00:00: under the [place] 00 skin every Medical morning. Branch metoclopram 2018- Yes [id number] 10mg Take 1 [facility] stephany HCl 10 2-20 tablet by ity of mg tablet 00:00: mouth [place] 00 every 6 Medical (six) Branch hours as needed for Nausea and Vomiting (N/V). insulin 2018-0 Yes [id number] Use as [facility] vers syringe-nee 2-20 directed ity of dle U-100 1 00:00: [place] ml (INSULIN 00 Medical SYRINGE) 1 Branch mL 29 gauge x 1/2" Syrg metformin 2018-0 Yes [id number] 750mg Take 1 [facility] ER 750 mg 2-20 tablet by ity o f 24 hr 00:00: mouth [place] tablet 00 daily with Medical breakfast. Branch atorvastati Yes [id number] 40mg Take 1 [facility] n 40 mg 2-20 tablet by ity of tablet 00:00: mouth at [place] 00 bedtime. Medical Branch insulin NPH Yes [id number] 14U inject 14 [facility] 100 unit/mL 2-20 Units ity of injection 00:00: under the [place] 00 skin every Medical morning. Branch metoclopram Yes [id number] 10mg Take 1 [facility] stephany HCl 10 2-20 tablet by ity of mg tablet 00:00: mouth [place] 00 every 6 Medical (six) Branch hours as needed for Nausea and Vomiting (N/V). insulin Yes [id number] Use as [facility] vers syringe-nee 2-20 directed ity of dle U-100 1 00:00: [place] ml (INSULIN 00 Medical SYRINGE) 1 Branch mL 29 gauge x 1/2" Syrg metformin 2018-0 Yes [id number] 750mg Take 1 [facility] ER 750 mg 2-20 tablet by ity o f 24 hr 00:00: mouth [place] tablet 00 daily with Medical breakfast. Branch atorvastati Yes [id number] 40mg Take 1 [facility] n 40 mg 2-20 tablet by ity of tablet 00:00: mouth at [place] 00 bedtime. Medical Branch insulin NPH 2018- Yes [id number] 14U inject 14 [facility] 100 unit/mL 2-20 Units ity of injection 00:00: under the [place] 00 skin every Medical morning. Branch insulin NPH Yes [id number] 10U inject 10 [facility] 100 unit/mL 2-20 Units ity of injection 00:00: under the [place] 00 skin every Medical evening. Branch metoclopram Yes [id number] 10mg Take 1 [facility] stephany HCl 10 2-20 tablet by ity of mg tablet 00:00: mouth [place] 00 every 6 Medical (six) Branch hours as needed for Nausea and Vomiting (N/V). insulin Yes [id number] Use as [facility] vers syringe-nee 2-20 directed ity of dle U-100 1 00:00: [place] ml (INSULIN 00 Medical SYRINGE) 1 Branch mL 29 gauge x 1/2" Syrg metformin 2018- Yes [id number] 750mg Take 1 [facility] ER 750 mg 2-20 tablet by ity o f 24 hr 00:00: mouth [place] tablet 00 daily with Medical breakfast. Branch atorvastati Yes [id number] 40mg Take 1 [facility] n 40 mg 2-20 tablet by ity of tablet 00:00: mouth at [place] 00 bedtime. Medical Branch insulin NPH Yes [id number] 14U inject 14 [facility] 100 unit/mL 2-20 Units ity of injection 00:00: under the [place] 00 skin every Medical morning. Branch insulin NPH Yes [id number] 10U inject 10 [facility] 100 unit/mL 2-20 Units ity of injection 00:00: under the [place] 00 skin every Medical evening. Branch metoclopram Yes [id number] 10mg Take 1 [facility] stephany HCl 10 2-20 tablet by ity of mg tablet 00:00: mouth [place] 00 every 6 Medical (six) Branch hours as needed for Nausea and Vomiting (N/V). insulin Yes [id number] Use as [facility] vers syringe-nee 2-20 directed ity of dle U-100 1 00:00: [place] ml (INSULIN 00 Medical SYRINGE) 1 Branch mL 29 gauge x 1/2" Syrg metformin 2018-0 Yes [id number] 750mg Take 1 [facility] ER 750 mg 2-20 tablet by ity o f 24 hr 00:00: mouth [place] tablet 00 daily with Medical breakfast. Branch atorvastati Yes [id number] 40mg Take 1 [facility] n 40 mg 2-20 tablet by ity of tablet 00:00: mouth at [place] 00 bedtime. Medical Branch insulin NPH Yes [id number] 14U inject 14 [facility] 100 unit/mL 2-20 Units ity of injection 00:00: under the [place] 00 skin every Medical morning. Branch insulin NPH Yes [id number] 10U inject 10 [facility] 100 unit/mL 2-20 Units ity of injection 00:00: under the [place] 00 skin every Medical evening. Branch metoclopram Yes [id number] 10mg Take 1 [facility] stephany HCl 10 2-20 tablet by ity of mg tablet 00:00: mouth [place] 00 every 6 Medical (six) Branch hours as needed for Nausea and Vomiting (N/V). insulin Yes [id number] Use as [facility] vers syringe-nee 2-20 directed ity of dle U-100 1 00:00: [place] ml (INSULIN 00 Medical SYRINGE) 1 Branch mL 29 gauge x 1/2" Syrg metformin Yes [id number] 750mg Take 1 [facility] ER 750 mg 2-20 tablet by ity o f 24 hr 00:00: mouth [place] tablet 00 daily with Medical breakfast. Branch atorvastati Yes [id number] 40mg Take 1 [facility] n 40 mg 2-20 tablet by ity of tablet 00:00: mouth at [place] 00 bedtime. Medical Branch insulin NPH 2020- No [id number] 10U inject 10 [facility] 100 unit/mL 2-20 04-23 Units ity of injection 00:00: 00:00 under the [place] 00 :00 skin every Medical evening. Branch insulin NPH 2020- No [id number] 10U inject 10 [facility] 100 unit/mL 2-20 04-23 Units ity of injection 00:00: 00:00 under the [place] 00 :00 skin every Medical evening. Branch clotrimazol Yes [id number] 1{appli Insert 1 Univers e 06-01 cator} Applicator ity of (CLOTRIMAZO 00:00: into [place] LE-7) 1 % 00 vagina at Medic al vaginal bedtime. [place] cream clotrimazol Yes [id number] 1{appli Insert 1 [facility] e 06-01 cator} Applicator ity of (CLOTRIMAZO 00:00: into [place] LE-7) 1 % 00 vagina at Medic al vaginal bedtime. [place] cream clotrimazol Yes [id number] 1{appli Insert 1 Univers e 06-01 cator} Applicator ity of (CLOTRIMAZO 00:00: into [place] LE-7) 1 % 00 vagina at Medic al vaginal bedtime. Branch cream clotrimazol Yes [id number] 1{appli Insert 1 [facility] e 06-01 cator} Applicator ity of (CLOTRIMAZO 00:00: into [place] LE-7) 1 % 00 vagina at Medic al vaginal bedtime. Branch cream clotrimazol Yes [id number] 1{appli Insert 1 [facility] e 06-01 cator} Applicator ity of (CLOTRIMAZO 00:00: into [place] LE-7) 1 % 00 vagina at Medic al vaginal bedtime. Branch cream clotrimazol Yes [id number] 1{appli Insert 1 [facility] e 06-01 cator} Applicator ity of (CLOTRIMAZO 00:00: into [place] LE-7) 1 % 00 vagina at Medic al vaginal bedtime. Branch cream clotrimazol Yes [id number] 1{appli Insert 1 [facility] e 06-01 cator} Applicator ity of (CLOTRIMAZO 00:00: into [place] LE-7) 1 % 00 vagina at Medic al vaginal bedtime. Branch cream clotrimazol Yes [id number] 1{appli Insert 1 [facility] e 06-01 cator} Applicator ity of (CLOTRIMAZO 00:00: into [place] LE-7) 1 % 00 vagina at Medic al vaginal bedtime. Branch cream clotrimazol Yes [id number] 1{appli Insert 1 [facility] e 06-01 cator} Applicator ity of (CLOTRIMAZO 00:00: into [place] LE-7) 1 % 00 vagina at Medic al vaginal bedtime. Branch cream clotrimazol Yes [id number] 1{appli Insert 1 [facility] e 06-01 cator} Applicator ity of (CLOTRIMAZO 00:00: into [place] LE-7) 1 % 00 vagina at Medic al vaginal bedtime. Branch cream clotrimazol Yes [id number] 1{appli Insert 1 [facility] e 06-01 cator} Applicator ity of (CLOTRIMAZO 00:00: into [place] LE-7) 1 % 00 vagina at Medic al vaginal bedtime. Branch cream clotrimazol Yes [id number] 1{appli Insert 1 [facility] e 06-01 cator} Applicator ity of (CLOTRIMAZO 00:00: into [place] LE-7) 1 % 00 vagina at Medic al vaginal bedtime. Branch cream clotrimazol Yes [id number] 1{appli Insert 1 [facility] e 06-01 cator} Applicator ity of (CLOTRIMAZO 00:00: into [place] LE-7) 1 % 00 vagina at Medic al vaginal bedtime. Branch cream clotrimazol Yes [id number] 1{appli Insert 1 [facility] e 06-01 cator} Applicator ity of (CLOTRIMAZO 00:00: into [place] LE-7) 1 % 00 vagina at Medic al vaginal bedtime. Branch cream clotrimazol Yes [id number] 1{appli Insert 1 [facility] e 06-01 cator} Applicator ity of (CLOTRIMAZO 00:00: into [place] LE-7) 1 % 00 vagina at Medic al vaginal bedtime. Branch cream Immunizations Ordered Filled Date Status Comments Source Immunization Name Immunization Name Influenza, 2018-09-25 Completed Rachna Castañeda - Seasonal, 00:00:00 External Injectable, Preservative Free Influenza, 2018-09-25 Completed Rachna Castañeda - Seasonal, 00:00:00 External Injectable, Preservative Free Influenza, 2018-09-25 Completed Rachna Cantu Seasonal, 00:00:00 External Injectable, Preservative Free Influenza, 2018-09-25 Completed Rachna Castañeda - Seasonal, 00:00:00 External Injectable, Preservative Free Influenza, 2018-09-25 Completed Rachna Castañeda - Seasonal, 00:00:00 External Injectable, Preservative Free Influenza, 2018-09-25 Completed Rachna Cantu Seasonal, 00:00:00 External Injectable, Preservative Free Influenza, 2018-09-25 Completed Rachna Castañeda - Seasonal, 00:00:00 External Injectable, Preservative Free Influenza, 2018-09-25 Completed Rachna Castañeda - Seasonal, 00:00:00 External Injectable, Preservative Free Influenza, 2018-09-25 Completed Rachna Seybold - Seasonal, 00:00:00 External Injectable, Preservative Free Influenza, 2018-09-25 Completed Rachna Castañeda - Seasonal, 00:00:00 External Injectable, Preservative Free Influenza, 2018-09-25 Completed Rachna Campbellold - Seasonal, 00:00:00 External Injectable, Preservative Free Influenza, 2018-09-25 Completed Rachna Clayybold - Seasonal, 00:00:00 External Injectable, Preservative Free Influenza, 2018-09-25 Completed Rachna Campbellold - Seasonal, 00:00:00 External Injectable, Preservative Free Influenza, 2018-09-25 Completed Rachna Castañeda - Seasonal, 00:00:00 External Injectable, Preservative Free Influenza, 2018-09-25 Completed Rachna Castañeda - Seasonal, 00:00:00 External Injectable, Preservative Free Influenza, 2018-09-25 Completed Rachna Campbellold - Seasonal, 00:00:00 External Injectable, Preservative Free Influenza, 2018-09-25 Completed Rachna Castañeda - Seasonal, 00:00:00 External Injectable, Preservative Free Influenza, 2018-09-25 Completed Rachna Clayybold - Seasonal, 00:00:00 External Injectable, Preservative Free Influenza, 2018-09-25 Completed Rachna Castañeda - Seasonal, 00:00:00 External Injectable, Preservative Free Influenza, 2018-09-25 Completed Rachna Clayybold - Seasonal, 00:00:00 External Injectable, Preservative Free Influenza, 2018-09-25 Completed Rachna Castañeda - Seasonal, 00:00:00 External Injectable, Preservative Free Influenza, 2018-09-25 Completed Rachna Castañeda - Seasonal, 00:00:00 External Injectable, Preservative Free Influenza, 2018-09-25 Completed Rachna Castañeda - Seasonal, 00:00:00 External Injectable, Preservative Free Influenza, 2018-09-25 Completed Rachna Castañeda - Seasonal, 00:00:00 External Injectable, Preservative Free Influenza, 2018-09-25 Completed Rachna Clayybold - Seasonal, 00:00:00 External Injectable, Preservative Free Tdap- (Boostrix, 2015-06-01 Completed Rachna Ramirez) 00:00:00 External Tdap- (Boostrix, 2015-06-01 Completed Rachna S eybold - Adacel) 00:00:00 External Tdap- (Boostrix, 2015-06-01 Completed Rachna S eybold - Adacel) 00:00:00 External Tdap- (Boostrix, 2015-06-01 Completed Rachna S eybold - Adacel) 00:00:00 External Tdap- (Boostrix, 2015-06-01 Completed Rachna S eybold - Adacel) 00:00:00 External Tdap- (Boostrix, 2015-06-01 Completed Rachna S eybold - Adacel) 00:00:00 External Tdap- (Boostrix, 2015-06-01 Completed Rachna S eybold - Adacel) 00:00:00 External Tdap- (Boostrix, 2015-06-01 Completed Rachna S eybold - Adacel) 00:00:00 External Tdap- (Boostrix, 2015-06-01 Completed Rachna S eybold - Adacel) 00:00:00 External Tdap- (Boostrix, 2015-06-01 Completed Rachna S eybold - Adacel) 00:00:00 External Tdap- (Boostrix, 2015-06-01 Completed Rachna S eybold - Adacel) 00:00:00 External Tdap- (Boostrix, 2015-06-01 Completed Rachna S eybold - Adacel) 00:00:00 External Tdap- (Boostrix, 2015-06-01 Completed Rachna S eybold - Adacel) 00:00:00 External Tdap- (Boostrix, 2015-06-01 Completed Rachna S eybold - Adacel) 00:00:00 External Tdap- (Boostrix, 2015-06-01 Completed Rachna S eybold - Adacel) 00:00:00 External Tdap- (Boostrix, 2015-06-01 Completed Rachna S eybold - Adacel) 00:00:00 External Tdap- (Boostrix, 2015-06-01 Completed Rachna S eybold - Adacel) 00:00:00 External Tdap- (Boostrix, 2015-06-01 Completed Rachna S eybold - Adacel) 00:00:00 External Tdap- (Boostrix, 2015-06-01 Completed Rachna Friedman eybold - Adacel) 00:00:00 External Tdap- (Boostrix, 2015-06-01 Completed Rachna Friedman eybold - Adacel) 00:00:00 External Tdap- (Boostrix, 2015-06-01 Completed Rachna Friedman eybold - Adacel) 00:00:00 External Tdap- (Boostrix, 2015-06-01 Completed Rachna Friedman eybold - Adacel) 00:00:00 External Tdap- (Boostrix, 2015-06-01 Completed Rachna Friedman eybold - Adacel) 00:00:00 External Tdap- (Boostrix, 2015-06-01 Completed Rachna Friedman eybold - Adacel) 00:00:00 External Tdap- (Boostrix, 2015-06-01 Completed Rachna Friedman eybold - Adacel) 00:00:00 External TDAP 2015-06-01 Completed [facility] of 00:00:00 [facility] TDAP 2015-06-01 Completed University of 00:00:00 [facility] TDAP 2015-06-01 Completed University of 00:00:00 [facility] TDAP 2015-06-01 Completed University of 00:00:00 [facility] TDAP 2015-06-01 Completed University of 00:00:00 [facility] TDAP 2015-06-01 Completed University of 00:00:00 [facility] TDAP 2015-06-01 Completed University of 00:00:00 [facility] TDAP 2015-06-01 Completed University of 00:00:00 [facility] TDAP 2015-06-01 Completed University of 00:00:00 [facility] TDAP 2015-06-01 Completed University of 00:00:00 [facility] Tdap 2015-06-01 Completed University of 00:00:00 [facility] Tdap 2015-06-01 Completed University of 00:00:00 [facility] Tdap 2015-06-01 Completed University of 00:00:00 [facility] Tdap 2015-06-01 Completed University of 00:00:00 [facility] Influenza, Unknown Completed Rachna Castañeda - Seasonal, External Injectable, Preservative Free Tdap- (Boostrix, Unknown Completed Rachna evansbold - Adacel) External Influenza, Unknown Completed Rachna Securtisold - Seasonal, External Injectable, Preservative Free Tdap- (Boostrix, Unknown Completed Rachna S eybold - Adacel) External Influenza, Unknown Completed Rachna Seybold - Seasonal, External Injectable, Preservative Free Tdap- (Boostrix, Unknown Completed Rachna S eybold - Adacel) External Influenza, Unknown Completed Rachna Seybold - Seasonal, External Injectable, Preservative Free Tdap- (Boostrix, Unknown Completed Rachna S eybold - Adacel) External Influenza, Unknown Completed Rachna ybold - Seasonal, External Injectable, Preservative Free Tdap- (Boostrix, Unknown Completed Rachna S eybold - Adacel) External Influenza, Unknown Completed Rachna Seybold - Seasonal, External Injectable, Preservative Free Tdap- (Boostrix, Unknown Completed Rachna S eybold - Adacel) External Influenza, Unknown Completed Rachna curtisold - Seasonal, External Injectable, Preservative Free Tdap- (Boostrix, Unknown Completed Rachna S eybold - Adacel) External TDAP Unknown Completed [facility] Vital Signs Vital Name Observation Time Observation Value Comments Source WEIGHT 2023-07-02 08:00:00 77.6 kg WEIGHT 2023-07-02 08:00:00 77.6 kg WEIGHT 2023-07-02 08:00:00 77.6 kg Systolic blood 2023-06-30 10:30:00 102 mm[Hg] [facility] pressure [facility] Diastolic blood 2023-06-30 10:30:00 64 mm[Hg] [facility] [place] [facility] [place] Heart rate 2023-06-30 10:30:00 85 /min [facility] Respiratory rate 2023-06-30 10:30:00 21 /min [facility] Oxygen saturation in 2023-06-30 10:30:00 98 /min [facility] Arterial blood by [place] [facility] Pulse oximetry [place] Body temperature 2023-06-30 10:21:00 37.89 Joanna [facility] Body height 2023-06-30 03:23:00 160 cm [facility] Body weight 2023-06-30 03:23:00 78.472 kg [facility] BMI 2023-06-30 03:23:00 30.65 kg/m2 [facility] HEIGHT 2023-06-19 06:45:00 162.6 cm WEIGHT 2023-06-19 06:45:00 77.565 kg HEIGHT 2023-06-18 13:23:00 162.6 cm WEIGHT 2023-06-18 13:23:00 81.194 kg HEIGHT 2023-06-19 06:45:00 162.6 cm WEIGHT 2023-06-19 06:45:00 77.565 kg HEIGHT 2023-06-18 13:23:00 162.6 cm WEIGHT 2023-06-18 13:23:00 81.194 kg HEIGHT 2023-06-19 06:45:00 162.6 cm WEIGHT 2023-06-19 06:45:00 77.565 kg HEIGHT 2023-06-18 13:23:00 162.6 cm WEIGHT 2023-06-18 13:23:00 81.194 kg Systolic blood 2023-06-12 19:51:00 132 mm[Hg] Rachna Clayybold - pressure External Diastolic blood 2023-06-12 19:51:00 83 mm[Hg] Tyrone Castañeda - pressure External Heart rate 2023-06-12 19:51:00 72 /min Rachna evansbogenesis - External Respiratory rate 2023-06-12 19:51:00 20 /min Trinh Castañeda - External Body height 2023-06-12 19:51:00 162.6 cm Rachna evansbogenesis - External Body weight 2023-06-12 19:51:00 81.194 kg Rachna Friedman eybold - External BMI 2023-06-12 19:51:00 30.73 kg/m2 Rachna evansbogenesis - External Oxygen saturation in 2023-06-12 19:51:00 99 /min Rachna Castañeda - Arterial blood by External Pulse oximetry Systolic blood 2023-05-29 15:04:00 143 mm[Hg] Rachna Clayybold - pressure External Diastolic blood 2023-05-29 15:04:00 83 mm[Hg] Tyrone esparza Seybold - pressure External Heart rate 2023-05-29 15:04:00 76 /min Rachna Friedman eybold - External Body temperature 2023-05-29 15:04:00 36.67 Joanna Trinh ey Seybold - External Respiratory rate 2023-05-29 15:04:00 18 /min Trinh evans Seybold - External Body height 2023-05-29 15:04:00 162.6 cm Rachna Friedman eybold - External Body weight 2023-05-29 15:04:00 82.555 kg Rachna Friedman eybold - External BMI 2023-05-29 15:04:00 31.24 kg/m2 Rachna Friedman eybold - External Systolic blood 2023-05-10 15:29:00 112 mm[Hg] Rachna Seybold - pressure External Diastolic blood 2023-05-10 15:29:00 70 mm[Hg] Jeromyse y Seybold - pressure External Heart rate 2023-05-10 15:29:00 72 /min Rachna Friedman eybold - External Body temperature 2023-05-10 15:29:00 37.39 Joanna Trinh ey Seybold - External Respiratory rate 2023-05-10 15:29:00 18 /min Trinh evans Seybold - External Body height 2023-05-10 15:29:00 162.6 cm Rachna Friedman eybold - External Body weight 2023-05-10 15:29:00 84.369 kg Rachna Friedman eybold - External BMI 2023-05-10 15:29:00 31.93 kg/m2 Rachna Friedman eybold - External Systolic blood 2023-05-08 15:47:00 113 mm[Hg] Rachna Seybold - pressure External Diastolic blood 2023-05-08 15:47:00 74 mm[Hg] Jeromyse y Seybold - pressure External Heart rate 2023-05-08 15:47:00 87 /min Rachna Friedman eybold - External Body temperature 2023-05-08 15:47:00 36.61 Joanna Trinh ey Seybold - External Respiratory rate 2023-05-08 15:47:00 15 /min Trinh evans Seybold - External Body height 2023-05-08 15:47:00 162.6 cm Rachna Friedman eybold - External Body weight 2023-05-08 15:47:00 84.369 kg Rachna Friedman eybold - External BMI 2023-05-08 15:47:00 31.93 kg/m2 Rachna Friedman eybold - External Oxygen saturation in 2023-05-08 15:47:00 99 /min Rachna Clayybsreafin - Arterial blood by External Pulse oximetry Systolic blood 2023-04-25 18:25:00 144 mm[Hg] Rachna Seybold - pressure External Diastolic blood 2023-04-25 18:25:00 72 mm[Hg] Jeromyse y Seybold - pressure External Respiratory rate 2023-04-25 18:25:00 18 /min Trinh ey Seybold - External Body height 2023-04-25 18:25:00 162.6 cm Rachna Friedman eybold - External Systolic blood 2023-04-25 16:29:00 110 mm[Hg] Rachna Seybold - pressure External Diastolic blood 2023-04-25 16:29:00 72 mm[Hg] Tyrone y Seybold - pressure External Heart rate 2023-04-25 16:29:00 76 /min Rachna Friedman eybold - External Body temperature 2023-04-25 16:29:00 37.28 Joanna Trinh ey Seybold - External Systolic blood 2023-04-12 16:22:00 132 mm[Hg] Rachna Seybold - pressure External Diastolic blood 2023-04-12 16:22:00 66 mm[Hg] Tyrone y Seybold - pressure External Heart rate 2023-04-12 16:22:00 83 /min Rachna Friedman eybold - External Body temperature 2023-04-12 16:22:00 36.83 Joanna Trinh ey Seybold - External Respiratory rate 2023-04-12 16:22:00 20 /min Trinh evans Seybold - External Body height 2023-04-12 16:22:00 162.6 cm Rachna Friedman eybold - External Body weight 2023-04-12 16:22:00 77.111 kg Rachna Friedman eybold - External BMI 2023-04-12 16:22:00 29.18 kg/m2 Rachna Friedman eybold - External Oxygen saturation in 2023-04-12 16:22:00 98 /min Rachna Seybold - Arterial blood by External Pulse oximetry Systolic blood 2023-02-21 15:46:00 128 mm[Hg] Rachna Seybold - pressure External Diastolic blood 2023-02-21 15:46:00 83 mm[Hg] Kelse y Seybold - pressure External Heart rate 2023-02-21 15:46:00 87 /min Rachna S eybold - External Body temperature 2023-02-21 15:46:00 37.11 Joanna Trinh ey Seybold - External Respiratory rate 2023-02-21 15:46:00 18 /min Trinh ey Seybold - External Body height 2023-02-21 15:46:00 162.6 cm Rachna Friedman eybold - External Body weight 2023-02-21 15:46:00 79.833 kg Rachna S eybold - External BMI 2023-02-21 15:46:00 30.21 kg/m2 Rachna S eybold - External Body height 2023-02-14 15:32:00 162.6 cm Rachna S eybold - External Body weight 2023-02-14 15:32:00 79.833 kg Rachna Friedman eybold - External BMI 2023-02-14 15:32:00 30.21 kg/m2 Rachna S eybold - External Systolic blood 2023-01-30 14:48:00 133 mm[Hg] Rachna Seybold - pressure External Diastolic blood 2023-01-30 14:48:00 75 mm[Hg] Tyrone y Seybold - pressure External Heart rate 2023-01-30 14:48:00 77 /min Rachna S eybold - External Body temperature 2023-01-30 14:48:00 36.94 Joanna Trinh ey Seybold - External Respiratory rate 2023-01-30 14:48:00 16 /min Trinh evans Seybold - External Body height 2023-01-30 14:48:00 162.6 cm Rachna S eybold - External Body weight 2023-01-30 14:48:00 79.652 kg Rachna S eybold - External BMI 2023-01-30 14:48:00 30.14 kg/m2 Rachna Friedman eybold - External Oxygen saturation in 2023-01-30 14:48:00 97 /min Rachna Seybold - Arterial blood by External Pulse oximetry Systolic blood 2023-01-24 16:31:00 130 mm[Hg] Rachna Seybold - pressure External Diastolic blood 2023-01-24 16:31:00 80 mm[Hg] Kelse y Seybold - pressure External Heart rate 2023-01-24 16:31:00 85 /min Rachna S eybold - External Body temperature 2023-01-24 16:31:00 36.67 Joanna Trinh ey Seybold - External Respiratory rate 2023-01-24 16:31:00 18 /min Trinh ey Seybold - External Body height 2023-01-24 16:31:00 162.6 cm Rachna S eybold - External Body weight 2023-01-24 16:31:00 66.679 kg Rachna S eybold - External BMI 2023-01-24 16:31:00 25.23 kg/m2 Rachna S eybold - External Systolic blood 2023-01-09 19:34:00 138 mm[Hg] Rachna Seybold - pressure External Diastolic blood 2023-01-09 19:34:00 78 mm[Hg] Jeromyse y Seybold - pressure External Heart rate 2023-01-09 05:00:00 79 /min Rachna S eybold - External Body temperature 2023-01-09 05:00:00 36.56 Joanna Trinh ey Seybold - External Respiratory rate 2023-01-09 05:00:00 14 /min Trinh ey Seybold - External Body height 2023-01-09 05:00:00 162.6 cm Rachna S eybold - External Body weight 2023-01-09 05:00:00 66.679 kg Rachna S eybold - External BMI 2023-01-09 05:00:00 25.23 kg/m2 Rachna S eybold - External Oxygen saturation in 2023-01-09 05:00:00 99 /min Rachna Seybold - Arterial blood by External Pulse oximetry Systolic blood 2022-12-21 14:46:00 120 mm[Hg] Rachna Seybold - pressure External Diastolic blood 2022-12-21 14:46:00 80 mm[Hg] Kelse y Seybold - pressure External Heart rate 2022-12-21 14:46:00 88 /min Rachna S eybold - External Body temperature 2022-12-21 14:46:00 36.78 Joanna Trinh ey Seybold - External Respiratory rate 2022-12-21 14:46:00 16 /min Trinh ey Seybold - External Body height 2022-12-21 14:46:00 162.6 cm Rachna S eybold - External Body weight 2022-12-21 14:46:00 67.087 kg Rachna S eybold - External BMI 2022-12-21 14:46:00 25.39 kg/m2 Rachna S eybold - External Oxygen saturation in 2022-12-21 14:46:00 98 /min Rachna Castañeda - Arterial blood by External Pulse oximetry Systolic blood 2022-11-30 13:53:00 130 mm[Hg] Rachna Seybold - pressure External Diastolic blood 2022-11-30 13:53:00 86 mm[Hg] Jeromyse y Seybold - pressure External Heart rate 2022-11-30 13:53:00 76 /min Rachna S eybold - External Body temperature 2022-11-30 13:53:00 37.17 Joanna Trinh ey Seybold - External Respiratory rate 2022-11-30 13:53:00 18 /min Trinh ey Seybold - External Body height 2022-11-30 13:53:00 162.6 cm Rachna S eybold - External Body weight 2022-11-30 13:53:00 73.483 kg Rachna S eybold - External BMI 2022-11-30 13:53:00 27.81 kg/m2 Rachna S eybold - External Systolic blood 2022-11-22 16:25:00 160 mm[Hg] Rachna Seybold - pressure External Diastolic blood 2022-11-22 16:25:00 88 mm[Hg] Jeromyse y Seybold - pressure External Heart rate 2022-11-22 16:25:00 76 /min Rachna S eybold - External Body temperature 2022-11-22 16:25:00 36.61 Joanna Trinh ey Seybold - External Respiratory rate 2022-11-22 16:25:00 14 /min Trinh ey Seybold - External Body height 2022-11-22 16:25:00 162.6 cm Rachna Friedman eybold - External Body weight 2022-11-22 16:25:00 76.658 kg Rachna S eybold - External BMI 2022-11-22 16:25:00 29.01 kg/m2 Rachna S eybold - External Oxygen saturation in 2022-11-22 16:25:00 99 /min Rachna Seybold - Arterial blood by External Pulse oximetry Systolic blood 2022-11-21 14:41:00 142 mm[Hg] Rachna Seybold - pressure External Diastolic blood 2022-11-21 14:41:00 86 mm[Hg] Jeromyse y Seybold - pressure External Heart rate 2022-11-21 14:41:00 80 /min Rachna Friedman eybold - External Respiratory rate 2022-11-21 14:41:00 16 /min Trinh ey Seybold - External Body height 2022-11-21 14:41:00 162.6 cm Rachna Friedman eybold - External Body weight 2022-11-21 14:41:00 76.658 kg Rachna Friedman eybold - External BMI 2022-11-21 14:41:00 29.01 kg/m2 Rachna Friedman eybold - External Systolic blood 2022-11-15 14:25:00 145 mm[Hg] Rachna Seybold - pressure External Diastolic blood 2022-11-15 14:25:00 87 mm[Hg] Tyrone y Seybold - pressure External Heart rate 2022-11-15 14:25:00 100 /min Rachna S eybold - External Body temperature 2022-11-15 14:25:00 36.94 Joanna Trinh ey Seybold - External Respiratory rate 2022-11-15 14:25:00 14 /min Trinh ey Seybold - External Body height 2022-11-15 14:25:00 162.6 cm Rachna S eybold - External Body weight 2022-11-15 14:25:00 73.483 kg Rachna S eybold - External BMI 2022-11-15 14:25:00 27.81 kg/m2 Rachna S eybold - External Oxygen saturation in 2022-11-15 14:25:00 99 /min Rachna Seybold - Arterial blood by External Pulse oximetry Body height 2022-11-13 14:15:00 162.6 cm Rachna Friedman eybold - External Body weight 2022-11-13 14:15:00 70.308 kg Rachna Friedman eybold - External BMI 2022-11-13 14:15:00 26.61 kg/m2 Rachna Friedman eybold - External Systolic blood 2022-11-02 15:53:00 140 mm[Hg] Rachna Seybold - pressure External Diastolic blood 2022-11-02 15:53:00 92 mm[Hg] Jeromyse y Seybold - pressure External Heart rate 2022-11-02 15:53:00 74 /min Rachna Friedman eybold - External Body temperature 2022-11-02 15:53:00 37.06 Joanna Trinh ey Seybold - External Respiratory rate 2022-11-02 15:53:00 20 /min Trinh evans Seybold - External Body height 2022-11-02 15:53:00 162.6 cm Rachna Friedman eybold - External Body weight 2022-11-02 15:53:00 69.4 kg Rachna Friedman eybold - External BMI 2022-11-02 15:53:00 26.26 kg/m2 Rachna Friedman eybold - External Systolic blood 2022-10-24 15:43:00 124 mm[Hg] Rachna Seybold - pressure External Diastolic blood 2022-10-24 15:43:00 89 mm[Hg] Tyrone y Seybold - pressure External Heart rate 2022-10-24 15:43:00 96 /min Rachna Friedman eybold - External Body temperature 2022-10-24 15:43:00 36.61 Joanna Trinh ey Seybold - External Respiratory rate 2022-10-24 15:43:00 18 /min Trinh evans Seybold - External Body height 2022-10-24 15:43:00 162.6 cm Rachna Friedman eybold - External Body weight 2022-10-24 15:43:00 66.225 kg Rachna Friedman eybold - External BMI 2022-10-24 15:43:00 25.06 kg/m2 Rachna Friedman eybold - External Body height 2022-09-21 19:22:00 162.6 cm Rachna Friedman eybold - External Systolic blood 2022-09-13 21:37:00 140 mm[Hg] Rachna Seybold - pressure External Diastolic blood 2022-09-13 21:37:00 79 mm[Hg] Tyrone y Seybold - pressure External Heart rate 2022-09-13 21:37:00 84 /min Rachna Friedman eybold - External Body temperature 2022-09-13 21:37:00 37.06 Joanna Trinh evans Seybold - External Respiratory rate 2022-09-13 21:37:00 14 /min Trinh evans Seybold - External Body height 2022-09-13 21:37:00 162.6 cm Rachna Friedman eybold - External Body weight 2022-09-13 21:37:00 58.786 kg Rachna evansbold - External BMI 2022-09-13 21:37:00 22.25 kg/m2 Rachna evansbold - External Oxygen saturation in 2022-09-13 21:37:00 99 /min Rachna Castañeda - Arterial blood by External Pulse oximetry Systolic blood 2022-04-17 21:30:00 108 mm[Hg] Univer sity of pressure [facility] Diastolic blood 2022-04-17 21:30:00 77 mm[Hg] Unive rsity of [facility] Heart rate 2022-04-17 21:30:00 74 /min [facility] Respiratory rate 2022-04-17 21:30:00 24 /[facility] 2022-04-17 21:30:00 97 /min [facility] Arterial blood by [facility] Pulse oximetry Branch Body temperature 2022-04-17 21:14:00 37.33 Joanna [facility] Body height 2022-04-17 21:14:00 162.6 cm [facility] Body weight 2022-04-17 21:14:00 78.472 kg [facility] BMI 2022-04-17 21:14:00 29.70 kg/m2 [facility] Systolic blood 2020-12-24 14:35:00 126 mm[Hg] Univer sity of pressure [facility] Diastolic blood 2020-12-24 14:35:00 79 mm[Hg] Unive rsity of pressure [facility] Heart rate 2020-12-24 14:35:00 72 /min [facility] Body temperature 2020-12-24 14:35:00 37.28 Joanna [facility] Respiratory rate 2020-12-24 14:35:00 16 /min [facility] Body height 2020-12-24 14:35:00 162.6 cm [facility] Body weight 2020-12-24 14:35:00 81.103 kg [facility] BMI 2020-12-24 14:35:00 30.69 kg/m2 [facility] Systolic blood 2020-02-25 18:20:00 139 mm[Hg] Univer sity of pressure [facility] Diastolic blood 2020-02-25 18:20:00 87 mm[Hg] Unive rsity of pressure [facility] Heart rate 2020-02-25 18:20:00 88 /min [facility] Body temperature 2020-02-25 18:20:00 37 Joanna [facility] Respiratory rate 2020-02-25 18:20:00 16 /min [facility] Body height 2020-02-25 18:20:00 162.6 cm [facility] Body weight 2020-02-25 18:20:00 84.879 kg [facility] BMI 2020-02-25 18:20:00 32.12 kg/m2 [facility] Heart rate 2020-01-19 19:44:00 89 /min [facility] Body temperature 2020-01-19 19:44:00 36.5 Joanna [facility] Respiratory rate 2020-01-19 19:44:00 16 /min [facility] Body height 2020-01-19 19:44:00 162.6 cm [facility] Body weight 2020-01-19 19:44:00 83.604 kg [facility] BMI 2020-01-19 19:44:00 31.64 kg/m2 [facility] Systolic blood 2020-01-19 19:44:00 132 mm[Hg] Univer sity of pressure [facility] Diastolic blood 2020-01-19 19:44:00 88 mm[Hg] Unive rsity of pressure [facility] Heart rate 2023-07-05 08:02:23 77 /min [facility] Respiratory rate 2023-07-05 08:02:23 17 /min [facility] Oxygen saturation in 2023-07-05 08:02:23 96 /min [facility] Arterial blood by Medical Ce [facility]ter Pulse oximetry Body temperature 2023-07-05 08:01:25 36.94 Joanna [facility] Systolic blood 2023-07-05 08:01:15 124 mm[Hg] [facility] Diastolic blood 2023-07-05 08:01:15 53 mm[Hg] [facility] Body weight 2023-07-02 08:00:00 77.6 kg [facility] BMI 2023-07-02 08:00:00 29.37 kg/m2 [facility] Heart rate 2023-06-26 13:00:00 65 /min [facility] Systolic blood 2023-06-26 11:35:00 103 mm[Hg] [facility] Diastolic blood 2023-06-26 11:35:00 56 mm[Hg] [facility] Respiratory rate 2023-06-26 11:35:00 18 /min [facility] Oxygen saturation in 2023-06-26 11:35:00 95 /min [facility] Arterial blood by Medical Ce [facility]ter Pulse oximetry Body temperature 2023-06-26 11:29:00 36.39 Joanna [facility] Body height 2023-06-19 06:45:00 162.6 cm [facility] Body weight 2023-06-19 06:45:00 77.565 kg [facility] BMI 2023-06-19 06:45:00 29.35 kg/m2 [facility] Heart Rate 2022-07-02 16:41:41 [facility] Temperature Oral (F) 2022-07-02 16:41:35 99.3 F [facility] Systolic (mm Hg) 2022-07-02 16:41:28 [facility] Diastolic (mm Hg) 2022-07-02 16:41:28 [facility] Temperature Oral (F) 2022-06-30 21:00:00 97.7 F [facility] Systolic (mm Hg) 2022-06-26 04:00:00 [facility] Diastolic (mm Hg) 2022-06-26 04:00:00 [facility] Respitory Rate 2022-06-26 04:00:00 [facility] Respitory Rate 2022-06-26 03:00:00 [facility] Systolic (mm Hg) 2022-06-26 03:00:00 [facility] Diastolic (mm Hg) 2022-06-26 03:00:00 [facility] Respitory Rate 2022-06-26 02:00:00 [facility] Systolic (mm Hg) 2022-06-26 02:00:00 [facility]ung [facility] Diastolic (mm Hg) 2022-06-26 02:00:00 [facility] Temperature Oral (F) 2022-06-25 21:00:00 97.2 F [facility] Temperature Oral (F) 2022-06-25 17:05:00 97.8 F [facility] Temperature Oral (F) 2022-06-25 13:19:00 97.9 F [facility] Height 2022-06-23 20:26:00 162.56 cm [facility] Weight 2022-06-23 20:26:00 [facility] Height 2022-06-23 19:00:00 5 [ft_i] [facility] Weight 2022-06-23 19:00:00 [facility] BMI Calculated 2022-06-23 19:00:00 [facility] Heart Rate 2022-06-23 16:07:59 [facility] Systolic (mm Hg) 2022-06-23 16:07:38 [facility] Diastolic (mm Hg) 2022-06-23 16:07:38 [facility] Temperature Oral (F) 2022-06-23 16:07:36 99.1 F [facility] Temperature Oral (F) 2022-06-21 21:10:00 97.8 F [facility] Height 2022-06-21 08:42:00 5 [ft_i] [facility] Weight 2022-06-21 08:42:00 [facility] BMI Calculated 2022-06-21 08:42:00 [facility] Respitory Rate 2022-06-21 06:59:00 [facility] Systolic (mm Hg) 2022-06-21 06:59:00 [facility] Diastolic (mm Hg) 2022-06-21 06:59:00 [facility] Respitory Rate 2022-06-21 06:00:00 [facility] Systolic (mm Hg) 2022-06-21 06:00:00 [facility] Diastolic (mm Hg) 2022-06-21 06:00:00 [facility] Respitory Rate 2022-06-21 05:00:00 [facility] Systolic (mm Hg) 2022-06-21 05:00:00 [facility] Diastolic (mm Hg) 2022-06-21 05:00:00 [facility] Heart Rate 2022-06-21 02:58:00 [facility] Heart Rate 2022-06-21 00:55:00 [facility] Height 2022-06-21 00:32:00 162.56 cm [facility] BMI Calculated 2022-06-21 00:32:00 [facility] Weight 2022-06-21 00:32:00 [facility] Heart Rate 2022-06-21 00:32:00 [facility] Temperature Oral (F) 2022-06-21 00:32:00 98.5 F [facility] Procedures Procedure Date / Time Performing Clinician Source Performed POCT-GLUCOSE METER 2023-07-05 08:00:00 Jasmeet [facility] POCT-GLUCOSE METER 2023-07-04 20:35:00 [facility] POCT-GLUCOSE METER 2023-07-04 17:45:00 Jasmeet [facility] POCT-GLUCOSE METER 2023-07-04 12:02:00 [facility] POCT-GLUCOSE METER 2023-07-04 08:03:00 [facility] CBC (HEMOGRAM ONLY) 2023-07-04 04:52:00 [facility] BASIC METABOLIC PANEL 2023-07-04 04:52:00 [facility] POCT-GLUCOSE METER 2023-07-03 22:11:00 [facility] POCT-GLUCOSE METER 2023-07-03 17:41:00 [facility] XR CHEST 1 VIEW PORTABLE / 2023-07-03 16:51:00 [facility] BEDSIDE Center SARS-COV2/INFLUENZA A&B 2023-07-03 15:08:00 [facility] RT-PCR Center POCT-GLUCOSE METER 2023-07-03 11:26:00 [facility] MISCELLANEOUS LAB ORDER 2023-07-03 10:55:00 [facility] POCT-GLUCOSE METER 2023-07-03 08:31:00 [facility] POCT-GLUCOSE METER 2023-07-02 21:10:00 [facility] POCT-GLUCOSE METER 2023-07-02 16:59:00 [facility] POCT-GLUCOSE METER 2023-07-02 11:09:00 [facility] REPORT OF PROCEDURE - 2023-07-02 09:59:17 Natasha Chappell [facility] ENDOSCOPY URL Center POCT-GLUCOSE METER 2023-07-02 08:15:00 Marlee Botello [facility] URINALYSIS W/ MICROSCOPIC 2023-07-02 04:41:00 [facility] CBC W/PLT COUNT & AUTO 2023-07-02 04:35:00 [facility] BASIC METABOLIC PANEL 2023-07-02 04:35:00 [facility] CBC W/PLT COUNT & AUTO 2023-07-02 04:35:00 [facility] POCT-GLUCOSE METER 2023-07-01 21:03:00 [facility] POCT-GLUCOSE METER 2023-07-01 17:13:00 [facility] HEMOGLOBIN AND HEMATOCRIT 2023-07-01 15:26:00 [facility] POCT-GLUCOSE METER 2023-07-01 12:33:00 [facility] POCT-GLUCOSE METER 2023-07-01 09:44:00 [facility] POCT-GLUCOSE METER 2023-07-01 08:37:00 [facility] TISSUE EXAM 2023-07-01 08:14:00 Natasha Chappell [facility] EGD 2023-07-01 08:00:00 Natasha Chappell [facility] (ESOPHAGOGASTRODUODENOSCOP Cente r Y) CBC W/PLT COUNT & AUTO 2023-07-01 05:00:00 [facility] BASIC METABOLIC PANEL 2023-07-01 05:00:00 [facility] CBC W/PLT COUNT & AUTO 2023-07-01 05:00:00 [facility] POCT-GLUCOSE METER 2023-06-30 20:59:00 [facility] HEMOGLOBIN AND HEMATOCRIT 2023-06-30 19:38:00 [facility] BASIC METABOLIC PANEL 2023-06-30 12:41:00 [facility] HEPATIC FUNCTION PANEL 2023-06-30 12:41:00 [facility] CBC W/PLT COUNT & AUTO 2023-06-30 12:41:00 [facility] CBC W/PLT COUNT & AUTO 2023-06-30 12:41:00 [facility] POCT-GLUCOSE METER 2023-06-30 12:34:00 [facility] XR CHEST 1 VW 2023-06-30 08:42:37 Zoltan Ray [facility] LACTIC ACID WHOLE BLOOD 2023-06-30 08:32:00 Zoltan Ray [facility] BLOOD CULTURE SCREEN 2023-06-30 07:38:00 Zoltan Ray [facility] HEMOGLOBIN 2023-06-30 07:38:00 Zoltan Ray [facility] URINALYSIS 2023-06-30 07:38:00 Zoltan Ray [facility] ABORH CONFIRMATION (LAB 2023-06-30 05:56:00 Zoltan Ray [facility] ONLY) Medical [place] CT ANGIOGRAM 2023-06-30 05:00:24 Zoltan Ray [facility] ABDOMEN/PELVIS [facility] ASSIGNMENT OF BENEFITS 2023-06-30 03:56:25 Doctor Unassigned, [facility] [place] CONSENT/REFUSAL FOR 2023-06-30 03:56:02 Doctor Unassigned, [facility] DIAGNOSIS AND TREATMENT [facility] LIPASE 2023-06-30 03:23:00 Zoltan Ray [facility] COMP. METABOLIC PANEL 2023-06-30 03:23:00 Zoltan Ray [facility] ([id number]) [facility] [facility] CBC WITH DIFF 2023-06-30 03:23:00 Zoltan Ray [facility] PROTHROMBIN TIME / INR 2023-06-30 03:23:00 Zoltan Ray [facility] HB ABO GROUPING 2023-06-30 03:23:00 Zoltan Ray [facility] CBC W/PLT COUNT & AUTO 2023-06-28 09:31:00 [facility] BASIC METABOLIC PANEL 2023-06-28 09:31:00 [facility], [facility] CBC W/PLT COUNT & AUTO 2023-06-28 09:31:00 [facility] POCT-GLUCOSE METER 2023-06-28 08:36:00 [facility] POCT-[facility]SE [facility]ER 2023-06-27 21:08:00 [facility], [facility] [place] POCT-GLUCOSE METER 2023-06-27 17:17:00 [facility] POCT-GLUCOSE METER 2023-06-27 12:37:00 [facility], [facility] [place] POCT-GLUCOSE METER 2023-06-27 07:10:00 [facility], [facility] [place] POCT-GLUCOSE METER 2023-06-26 22:32:00 [facility] POCT-GLUCOSE METER 2023-06-26 17:02:00 [facility], [facility] CT LUMBAR SPINE WITHOUT IV 2023-06-26 15:50:00 [facility], [facility] CONTRAST [facility] CT THORACIC SPINE WITHOUT 2023-06-26 15:50:00 [facility], [facility] IV CONTRAST [facility] POCT-GLUCOSE METER 2023-06-26 10:49:00 [facility] MISCELLANEOUS LAB ORDER 2023-06-26 09:57:00 Marlee Yu CH I [facility] POCT-GLUCOSE METER 2023-06-26 07:52:00 [facility], [facility] POCT-GLUCOSE METER 2023-06-25 21:01:00 [facility] 2023-06-25 17:23:00 [facility] HIGH SENSITIVITY TROPONIN 2023-06-25 08:36:00 [facility]SE [facility]ER 2023-06-25 07:13:00 [facility] HIGH SENSITIVITY TROPONIN 2023-06-25 00:20:00 [facility]BD[facility]EN/PELVIS WITH IV 2023-06-24 23:43:32 Flaco Devi [facility] POCT-GLUCOSE METER 2023-06-24 23:06:00 [facility] LIPASE 2023-06-24 18:37:00 Marito [facility] HEPATIC FUNCTION PANEL 2023-06-24 18:37:00 Marito [facility] POCT-GLUCOSE METER 2023-06-24 17:15:00 [facility] HIGH SENSITIVITY TROPONIN 2023-06-24 16:31:00 [facility] 2023-06-24 14:51:53 En [facility] ECG 12-LEAD 2023-06-24 14:51:53 Unknown, Hl7 [facility] ECG 12-LEAD 2023-06-24 14:51:53 Unknown, 7 [facility] ECG 12-LEAD 2023-06-24 14:49:59 Unknown, 7 [facility] ECG 12-LEAD 2023-06-24 14:49:59 Unknown, 7 [facility] XR ABDOMEN/KUB 1 VIEW 2023-06-24 14:04:37 Flaco Devi [facility] CBC W/PLT COUNT & AUTO 2023-06-24 13:05:00 [facility] BASIC METABOLIC PANEL 2023-06-24 13:05:00 [facility] CBC W/PLT COUNT & AUTO 2023-06-24 13:05:00 [facility] POCT-GLUCOSE METER 2023-06-24 11:44:00 [facility] POCT-[facility]UCOSE METER 2023-06-24 07:16:00 [facility] POCT-GLUCOSE METER 2023-06-23 19:47:00 [facility] POCT-GLUCOSE METER 2023-06-23 16:47:00 [facility] POCT-GLUCOSE METER 2023-06-23 11:39:00 [facility] POCT-GLUCOSE METER 2023-06-23 07:52:00 [facility] XR LUMBAR SPINE 2 OR 3 2023-06-23 06:35:00 Michael [facility] POCT-GLUCOSE METER 2023-06-22 21:18:00 [facility] POCT-GLUCOSE METER 2023-06-22 16:57:00 [facility] POCT-GLUCOSE METER 2023-06-22 11:44:00 [facility] POCT-GLUCOSE METER 2023-06-22 07:42:00 [facility] BASIC METABOLIC PANEL 2023-06-22 05:03:00 Michael [facility] CBC (HEMOGRAM ONLY) 2023-06-22 05:03:00 Michael [facility] POCT-GLUCOSE METER 2023-06-21 21:59:00 [facility] POCT-GLUCOSE METER 2023-06-21 19:03:00 [facility] BLOOD GAS, ARTERIAL 2023-06-21 15:47:00 Charles Perezalex [facility] POCT-GLUCOSE METER 2023-06-21 08:41:00 [facility] POCT-GLUCOSE METER 2023-06-21 07:23:00 [facility] POCT-GLUCOSE METER 2023-06-21 05:26:00 [facility] BASIC METABOLIC PANEL 2023-06-21 04:03:00 [facility] CBC (HEMOGRAM ONLY) 2023-06-21 04:03:00 [facility] PREPARE RBC 2023-06-20 23:55:00 [facility] POCT-GLUCOSE METER 2023-06-20 23:50:00 [facility] POCT-GLUCOSE METER 2023-06-20 23:17:00 [facility] POCT-GLUCOSE METER 2023-06-20 05:29:00 [facility] BASIC METABOLIC PANEL 2023-06-20 05:24:00 [facility] CBC (HEMOGRAM ONLY) 2023-06-20 05:24:00 [facility] POCT-GLUCOSE METER 2023-06-19 15:48:00 [facility] TRANSFUSE LEUKO-REDUCED 2023-06-19 13:42:00 Darci [place] RED BLOOD CELLS Center [place] FLUORO NON-SPECIFIC UP 2023-06-19 13:30:00 [facility] TO 1 HOUR [facility] TRANSFUSE LEUKO-REDUCED 2023-06-19 13:17:00 Darci [place] RED BLOOD CELLS Center RRL CRITICAL LABS 2023-06-19 12:38:55 Zac Somers [facility] (ABG,NA,K,H&H,GLUCOSE) [place] CALCIUM, IONIZED 2023-06-19 12:38:55 Hafkin, Zac [facility] BLOOD GAS, ARTERIAL 2023-06-19 12:38:55 LizbetZac [facility] SODIUM NA-STAT LAB 2023-06-19 12:38:55 Lizbet [facility] POTASSIUM-STAT LAB 2023-06-19 12:38:55 Lizbet [facility] GLUCOSE-STAT LAB 2023-06-19 12:38:55 Lizbet [facility] HGB/HCT (H&H) - STAT LAB 2023-06-19 12:38:55 Lizbet [facility] CALCIUM, IONIZED 2023-06-19 10:08:20 [facility] RRL CRITICAL LABS 2023-06-19 10:08:16 [facility] (ABG,NA,K,H&H,GLUCOSE) [facility] BLOOD GAS, ARTERIAL 2023-06-19 10:08:16 [facility] SODIUM NA-STAT LAB 2023-06-19 10:08:16 [facility] POTASSIUM-STAT LAB 2023-06-19 10:08:16 [facility] GLUCOSE-STAT LAB 2023-06-19 10:08:16 [facility] HGB/HCT (H&H) - STAT LAB 2023-06-19 10:08:16 [facility] [place] [place] FLUORO NON-SPECIFIC UP 2023-06-19 09:40:00 [facility] TO 1 HOUR [facility] CALCIUM, IONIZED 2023-06-19 08:18:32 [facility] RRL CRITICAL LABS 2023-06-19 08:18:29 [facility] (ABG,NA,K,H&H,GLUCOSE) [facility] BLOOD GAS, ARTERIAL 2023-06-19 08:18:29 [facility] SODIUM NA-STAT LAB 2023-06-19 08:18:29 Ropper, [facility] POTASSIUM-STAT LAB 2023-06-19 08:18:29 [facility] GLUCOSE-STAT LAB 2023-06-19 08:18:29 [facility]H&H) - STAT LAB 2023-06-19 08:18:29 [facility] [place] ABORH, MANUAL 2023-06-19 08:08:00 Anh Fisher [facility] PROCEDURE W/ C-ARM 2023-06-19 07:30:00 [facility] NEUROPHYSIOLOGIC 2023-06-19 07:30:00 [facility] MONITORING, [facility], [facility]ARD[facility], 2023-06-19 07:30:00 [facility] [place] SPINAL [facility] FUSION, SPINE, POSTERIOR 2023-06-19 07:30:00 [facility] APPROACH, FOR DEFORMITY [facility] REPAIR CORPECTOMY, SPINE, 2023-06-19 07:30:00 [facility] THORACIC [facility] Center INSERTION, INTERVERTEBRAL 2023-06-19 07:30:00 [facility] BIOMEDICAL DEVICE, SPINE, [facility] LUMBAR OPEN REDUCTION, SPINE, 2023-06-19 07:30:00 [facility] THORACIC [facility] PROCEDURE, USING FRAMELESS 2023-06-19 07:30:00 [facility] STEREOTAXY [facility] FUSION, SPINE, POSTERIOR 2023-06-19 07:15:00 [facility] APPROACH, FOR DEFORMITY [facility] REPAIR CORPECTOMY, SPINE, 2023-06-19 07:15:00 Ropper [facility] THORACIC, WITH FUSION [facility] INSERTION, HARDWARE, 2023-06-19 07:15:00 [facility] [place] SPINAL [facility] Center INSERTION, INTERVERTEBRAL 2023-06-19 07:15:00 [facility], [facility] BIOMEDICAL DEVICE, SPINE, [facility] LUMBAR OPEN REDUCTION, SPINE, 2023-06-19 07:15:00 [facility] THORACIC [facility] PROCEDURE, USING FRAMELESS 2023-06-19 07:15:00 [facility] STEREOTAXY [facility] PROCEDURE W/ C-ARM 2023-06-19 07:15:00 [facility] NEUROPHYSIOLOGIC 2023-06-19 07:15:00 [facility] MONITORING, INTRAOPERATIVE Ning Wue r POCT , URINE 2023-06-19 07:07:00 Zac Somers CH I [facility] TYPE AND SCREEN, AUTOMATED 2023-06-19 07:03:00 [facility] POCT-GLUCOSE METER 2023-06-19 07:01:00 [facility] TRANSPLANT/EXT PROVIDER 2023-04-18 05:01:00 Doctor Unassigned, U [facility] URINALYSIS NONAUTO W/O 2022-11-15 14:59:50 Gene Lee Seybold - SCOPE External LUMBAR SPINE 2 VIEWS 2022-11-13 15:37:23 Zeke Simental Seybold - External LUMBAR SPINE 2022-11-13 15:36:31 Zeke Simental ld - FLEX/EXTENSION ONLY External PELVIS 2022-11-13 15:35:46 Zeke Simental ld - External XR CHEST 1 VW 2022-04-17 22:08:00 Juana Rodriguez [facility] TROPONIN I 2022-04-17 21:50:00 Juana Rodriguez [facility] COMP. METABOLIC PANEL 2022-04-17 21:50:00 Juana Rodriguez [facility] ([id number]) [facility] CBC WITH DIFF 2022-04-17 21:50:00 Juana Rodriguez [facility] LACTIC ACID WHOLE BLOOD 2022-04-17 21:50:00 Juana Rodriguez [facility] ASSIGNMENT OF BENEFITS 2020-12-24 14:09:37 Doctor Unassigned, [facility] BCCS-RELATED DOCUMENTATION 2020-01-16 05:01:00 Doctor Unassigned , [facility] Plan of Care Planned Activity Planned Date Details Comments Source Future Scheduled 2025-06-01 DTAP/TDAP/TD VACCINES ([address] [facility] 00:00:00 - Td or Tdap) [code = Medica l Center DTAP/TDAP/TD VACCINES (2 - Td or Tdap)] Future Scheduled 2025-06-01 DTAP/TDAP/TD VACCINES ([address] [facility] 00:00:00 - Td or Tdap) [code = Medica l Center DTAP/TDAP/TD VACCINES (2 - Td or Tdap)] Future Scheduled 2025-06-01 DTAP/TDAP/TD VACCINES ([address] [facility] 00:00:00 - Td or Tdap) [code = Medica l Center DTAP/TDAP/TD VACCINES (2 - Td or Tdap)] Future Scheduled 2025-06-01 DTAP/TDAP/TD VACCINES ([address] [facility] 00:00:00 - Td or Tdap) [code = Medica l Center DTAP/TDAP/TD VACCINES (2 - Td or Tdap)] Future Scheduled 2025-06-01 DTAP/TDAP/TD VACCINES ([address] [facility] 00:00:00 - Td or Tdap) [code = Medica l Center DTAP/TDAP/TD VACCINES (2 - Td or Tdap)] Future Scheduled 2024-06-[address] [facility] 00:00:00 Counseling and Screening Med ical Center (12+) [code = Tobacco Cessation Counseling and Screening (12+)] Future Scheduled 2024-06-[address] [facility] 00:00:00 Counseling and Screening Med ical Center (12+) [code = Tobacco Cessation Counseling and Screening (12+)] Future Scheduled 2024-06-[address] [facility] 00:00:00 Counseling and Screening Med ical Center (12+) [code = Tobacco Cessation Counseling and Screening (12+)] Future Scheduled 2024-06-[address] [facility] 00:00:00 Counseling and Screening Med ical Center (12+) [code = Tobacco Cessation Counseling and Screening (12+)] Future Scheduled 2023-06-[address] [facility]00 measurement (procedure) [facility] Center [code = 36189108] Future Scheduled 2023-06-[address] [facility] 00:[facility]:00 measurement (procedure) [facility] [code = 21997697] Future Scheduled 2023-06-[address] [facility] 00:00:00 measurement (procedure) [facility] Center [code = 62857386] Future Scheduled 2023-06-[address] [facility] 00:00:00 measurement (procedure) [facility]i [facility]amine Center [code = 96315598] Future Scheduled 2023-05-04 Influenza Vaccine (#1) [facility] [code = Influenza Vaccine Me dical Center (#1)] Future Scheduled 2023-05-04 Influenza Vaccine (#1) [facility] 00:00:00 [code = Influenza Vaccine Me dical Center (#1)] Future Scheduled 2023-05-04 Influenza Vaccine (#1) [facility] 00:00:00 [code = Influenza Vaccine Me dical Center (#1)] Future Scheduled 2023-05-04 Influenza Vaccine (#1) [facility] 00:00:00 [code = Influenza Vaccine Me dical Center (#1)] Future Scheduled 2023-05-04 Influenza Vaccine (#1) [facility] 00:00:00 [code = Influenza Vaccine Me dical Center (#1)] Future Scheduled 2022-09-[address] [facility] 00:00:00 (12+) [code = DEPRESSION Med ical Center SCREENING (12+)] Future Scheduled 2022-06-04 MEDICARE ANNUAL WELLNESS [facility] 00:00:00 (YEAR 2 or FIRST YEAR if Med ical Center no IPPE) [code = MEDICARE ANNUAL WELLNESS (YEAR 2 or FIRST YEAR if no IPPE)] Future Scheduled 2022-06-04 MEDICARE ANNUAL WELLNESS [facility] 00:00:00 (YEAR 2 or FIRST YEAR if Med ical Center no IPPE) [code = MEDICARE ANNUAL WELLNESS (YEAR 2 or FIRST YEAR if no IPPE)] Future Scheduled 2022-06-04 MEDICARE ANNUAL WELLNESS [facility] 00:00:00 (YEAR 2 or FIRST YEAR if Med ical Center no IPPE) [code = MEDICARE ANNUAL WELLNESS (YEAR 2 or FIRST YEAR if no IPPE)] Future Scheduled 2022-06-04 MEDICARE ANNUAL WELLNESS [facility] 00:00:00 (YEAR 2 or FIRST YEAR if Med ical Center no IPPE) [code = MEDICARE ANNUAL WELLNESS (YEAR 2 or FIRST YEAR if no IPPE)] Future Scheduled 2022-06-04 MEDICARE ANNUAL WELLNESS [facility] 00:00:00 (YEAR 2 or FIRST YEAR if Med ical Center no IPPE) [code = MEDICARE ANNUAL WELLNESS (YEAR 2 or FIRST YEAR if no IPPE)] Future Scheduled 2021-10-21 Lipid panel (procedure) [facility] 00:00:00 [code = [id number]] Medical Ce nter Future Scheduled 2021-10-21 Lipid panel (procedure) [facility] 00:00:00 [code = 86274277] Medical Ce nter Future Scheduled 2021-10-21 Lipid panel (procedure) [facility] 00:00:00 [code = 60046123] Medical Ce nter Future Scheduled 2021-10-21 Lipid panel (procedure) [facility] 00:00:00 [code = 63390304] Medical Ce nter Future Scheduled 2017-11-09 SHINGLES VACCINES ([address] [facility] 00:00:00 2) [code = SHINGLES Medical Center VACCINES (1 of 2)] Future Scheduled 2017-11-09 SHINGLES VACCINES ([address] [facility] 00:00:00 2) [code = SHINGLES Medical Center VACCINES (1 of 2)] Future Scheduled 2017-11-09 Screening for malignant [facility] 00:00:00 neoplasm of lung Medical [facility] ter (procedure) [code = 622543061] Future Scheduled 2017-11-09 SHINGLES VACCINES ([address] [facility] 00:00:00 2) [code = SHINGLES Medical Center VACCINES (1 of 2)] Future Scheduled 2017-11-09 Screening for malignant [facility] 00:00:00 neoplasm of lung Medical [facility] (procedure) [code = 179651819] Future Scheduled 2017-11-09 SHINGLES VACCINES ([address] [facility] 00:00:00 2) [code = SHINGLES Medical Center VACCINES (1 of 2)] Future Scheduled 2017-11-09 Screening for malignant [facility] 00:00:00 neoplasm of lung Medical [facility] (procedure) [code = 034733623] Future Scheduled 2017-11-09 SHINGLES VACCINES ([address] [facility] 00:00:00 2) [code = SHINGLES Medical Center VACCINES (1 of 2)] Future Scheduled 2012-11-09 Lipid panel (procedure) [facility] 00:00:00 [code = 22104861] Medical Ce nter Future Scheduled 1988-11-09 Screening for malignant [facility] 00:00:00 neoplasm of cervix Medical C enter (procedure) [code = 042470151] Future Scheduled 1988-11-09 Screening for malignant [facility] 00:00:00 neoplasm of cervix Medical C enter (procedure) [code = 969149229] Future Scheduled 1988-11-09 Screening for malignant [facility] 00:00:00 neoplasm of cervix Medical C enter (procedure) [code = 371746072] Future Scheduled 1988-11-09 Screening for malignant [facility] 00:00:00 neoplasm of cervix Medical C enter (procedure) [code = 857031807] Future Scheduled 1988-11-09 Screening for malignant [facility] 00:00:00 neoplasm of cervix Medical C enter (procedure) [code = 480212494] Future Scheduled 1985-11-09 HEPATITIS C [facility]CREENING [facility]00 [code = HEPATITIS C Medical Center SCREENING] Future Scheduled 1985-11-09 HEPATITIS C [facility]CRE[facility]ING [facility] 00:00:00 [code = HEPATITIS C Medical Center SCREENING] Future Scheduled 1985-11-09 HEPATITIS C [facility]CRE[facility]ING [facility] 00:00:00 [code = HEPATITIS C Medical Center SCREENING] Future Scheduled 1985-11-09 HEPATITIS C [facility]CRE[facility]ING [facility] 00:00:00 [code = HEPATITIS C Medical Center SCREENING] Future Scheduled 1985-11-09 HEPATITIS C [facility]CRE[facility]ING [facility] 00:00:00 [code = HEPATITIS C Medical Center SCREENING] Future Scheduled 1982-11-[address] [facility] 00:[facility]:00 virus screening [facility] Cent [facility] (procedure) [code = 983390658] Future Scheduled 1982-11-[address] [facility] 00:00:00 virus screening Medical Cent er (procedure) [code = 588680217] Future Scheduled 1982-11-[address] [facility] 00:00:00 virus screening Medical Cent er (procedure) [code = 099600512] Future Scheduled 1982-11-[address] [facility] 00:00:00 virus screening Medical Cent er (procedure) [code = 124488245] Future Scheduled 1982-11-[address] [facility] 00:00:00 virus screening Medical Cent er (procedure) [code = 146447817] Future Scheduled [address] [facility] 00:00:00 Counseling and Screening [facility] (12+) [code = Tobacco Cessation Counseling and Screening (12+)] Future Scheduled 1977-11-09 DIABETIC EYE EXAM [code = [facility] 00:00:00 DIABETIC EYE EXAM] Medical C enter Future Scheduled 1977-11-09 Diabetic foot examination [facility] 00:00:00 (regime/therapy) [code = Med ical Center 262312701] Future Scheduled 1977-11-09 Urine screening for [facility] 00:00:00 protein (procedure) [code [facility] = 306512262] Future Scheduled 1977-11-09 DIABETIC EYE EXAM [code = [facility] 00:00:00 DIABETIC EYE EXAM] Medical C enter Future Scheduled 1977-11-09 Diabetic foot examination [facility] 00:00:00 (regime/therapy) [code = Med ical Center 578016379] Future Scheduled 1977-11-09 Urine screening for [facility] 00:00:00 protein (procedure) [code Al [facility]ical Center = 992532089] Future Scheduled 1977-11-09 DIABETIC EYE EXAM [code = [facility] 00:00:00 DIABETIC EYE EXAM] Medical C enter Future Scheduled 1977-11-09 Diabetic foot examination [facility] 00:00:00 (regime/therapy) [code = Med ical Center 264642690] Future Scheduled 1977-11-09 Urine screening for [facility] 00:00:00 protein (procedure) [code Al dical Center = 080308366] Future Scheduled 1977-11-09 DIABETIC EYE EXAM [code = [facility] 00:00:00 DIABETIC EYE EXAM] Medical C enter Future Scheduled 1977-11-09 Diabetic foot examination [facility] 00:00:00 (regime/therapy) [code = Med ical Center 138540765] Future Scheduled 1977-11-09 Urine screening for [facility] 00:00:00 protein (procedure) [code [facility] = 213675359] Future Scheduled 1973-11-09 Pneumococcal Vaccine: [facility] 00:[facility]:00 0-64 Years (1 - PCV) Medical Center [code = Pneumococcal Vaccine: 0-64 Years (1 - PCV)] Future Scheduled 1973-11-09 Pneumococcal Vaccine: [facility] 00:00:00 0-64 Years (1 - PCV) Medical Center [code = Pneumococcal Vaccine: 0-64 Years (1 - PCV)] Future Scheduled 1973-11-09 Pneumococcal Vaccine: [facility] 00:00:00 0-64 Years (1 - PCV) Medical Center [code = Pneumococcal Vaccine: 0-64 Years (1 - PCV)] Future Scheduled 1973-11-09 Pneumococcal Vaccine: [facility] 00:00:00 0-64 Years (1 - PCV) Medical Center [code = Pneumococcal Vaccine: 0-64 Years (1 - PCV)] Future Scheduled 1968-05-12 COVID-19 VACCINE (#1) [facility]:00 [code = COVID-19 VACCINE Med ical Center (#1)] Future Scheduled 1968-05-12 COVID-19 VACCINE (#1) [facility] 00:00:00 [code = COVID-19 VACCINE Med ical Center (#1)] Future Scheduled 1968-05-12 COVID-19 VACCINE (#1) [facility] 00:00:00 [code = COVID-19 VACCINE Med ical Center (#1)] Future Scheduled 1968-05-12 COVID-19 VACCINE (#1) [facility] 00:00:00 [code = COVID-19 VACCINE Med ical Center (#1)] Future Scheduled 1968-05-12 COVID-19 VACCINE (#1) [facility] 00:00:00 [code = COVID-19 VACCINE Med [facility] (#1)] Future Scheduled 1967 Screening for malignant [facility] 00:00:00 neoplasm of breast Medical C enter (procedure) [code = 484655709] Future Scheduled 1967 CT Colonography (combo) [facility] 00:00:00 [code = CT Colonography [facility] (combo)] Future Scheduled 1967 Screening for malignant [facility] 00:00:00 neoplasm of colon Medical Ce nter (procedure) [code = 866261148] Future Scheduled 1967 Screening for malignant [facility] 00:00:00 neoplasm of colon Medical Ce nter (procedure) [code = 339193304] Future Scheduled 1967 Screening for malignant [facility] 00:00:00 neoplasm of colon Medical Ce nter (procedure) [code = 566170925] Future Scheduled 1967 Screening for malignant [facility] 00:00:00 neoplasm of colon Medical Ce nter (procedure) [code = 198485070] Future Scheduled 1967 Sigmoidoscopy [code = [facility] Sigmoidoscopy] Medical Cente r Future Scheduled 1967 Screening for malignant [facility] 00:00:00 neoplasm of breast Medical C enter (procedure) [code = 160720119] Future Scheduled 1967 CT Colonography (combo) [facility] 00:00:00 [code = CT Colonography [facility] (combo)] Future Scheduled 1967 Screening for malignant [facility] 00:00:00 neoplasm of colon Medical Ce nter (procedure) [code = 005414125] Future Scheduled 1967 Screening for malignant [facility] 00:00:00 neoplasm of colon Medical Ce nter (procedure) [code = 280233881] Future Scheduled 1967 Screening for malignant [facility] 00:00:00 neoplasm of colon Medical Ce nter (procedure) [code = 738389655] Future Scheduled 1967 Screening for malignant [facility] 00:00:00 neoplasm of colon Medical Ce nter (procedure) [code = 942928614] Future Scheduled 1967 Sigmoidoscopy [code = [facility] Sigmoidoscopy] Medical Brycee r Future Scheduled 1967 Screening for malignant [facility] 00:00:00 neoplasm of breast Medical C enter (procedure) [code = 862908811] Future Scheduled 1967 CT Colonography (combo) [facility] 00:00:00 [code = CT Colonography [facility] (combo)] Future Scheduled 1967 Screening for malignant [facility] 00:00:00 neoplasm of colon Medical Ce nter (procedure) [code = 095875906] Future Scheduled 1967 Screening for malignant [facility] 00:00:00 neoplasm of colon Medical Ce nter (procedure) [code = 105881201] Future Scheduled 1967 Screening for malignant [facility] 00:00:00 neoplasm of colon Medical Ce nter (procedure) [code = 891890621] Future Scheduled 1967 Screening for malignant [facility] 00:00:00 neoplasm of colon Medical Ce nter (procedure) [code = 096830179] Future Scheduled 1967 Sigmoidoscopy [code = [facility] S[facility]oscopy] Medical Brycee r Future Scheduled 1967 Screening for malignant [facility] 00:00:00 neoplasm of breast Medical C enter (procedure) [code = 538779244] Future Scheduled 1967 CT Colonography (combo) [facility] 00:00:00 [code = CT Colonography [facility] (combo)] Future Scheduled 1967 Screening for malignant [facility] 00:00:00 neoplasm of colon Medical Ce nter (procedure) [code = 999558606] Future Scheduled 1967 Screening for malignant [facility] 00:00:00 neoplasm of colon Medical Ce nter (procedure) [code = 317099733] Future Scheduled 1967 Screening for malignant [facility] 00:00:00 neoplasm of colon Medical Ce nter (procedure) [code = 757754729] Future Scheduled 1967 Screening for malignant [facility] 00:00:00 neoplasm of colon Medical Ce nter (procedure) [code = 327646154] Future Scheduled 1967 Sigmoidoscopy [code = [facility]] Medical Cente r Future Scheduled 1967 Screening for malignant [facility] 00:00:00 neoplasm of breast Medical C enter (procedure) [code = 788356087] Future Scheduled 1967 CT Colonography (combo) [facility] 00:00:00 [code = CT Colonography [facility] (combo)] Future Scheduled 1967 Screening for malignant [facility] 00:00:00 neoplasm of colon Medical Ce nter (procedure) [code = 656280764] Future Scheduled 1967 Screening for malignant [facility] 00:00:00 neoplasm of colon Medical Ce nter (procedure) [code = 709753969] Future Scheduled 1967 Screening for malignant [facility] 00:00:00 neoplasm of colon Medical Ce nter (procedure) [code = 551513389] Future Scheduled 1967 Screening for malignant [facility] 00:00:00 neoplasm of colon Medical Ce nter (procedure) [code = 705339855] Future Scheduled 1967 Sigmoidoscopy [code = [facility] S[facility]oscopy] Medical Cente r Encounters Start End Encounter Admission Attending Care Care Encounter Source Date/Time Date/Time Type Type Clinicians Facility Department ID 2023-06-26 Inpatient EL ROPPER, [facility] [id number] [facility] 15:44:18 RADU 2023-06-24 Inpatient EL ROPPER, [facility] [id number] SLE 21:49:23 RADU 2022-10-05 Outpatient [facility] [id number] [place] 10:08:58 [id number] [facility] 2022-08-07 Outpatient [facility] [id number] [place] 08:32:58 [id number] [facility] 2022-07-24 Outpatient [facility] [id number] [place] 11:32:56 [id number] [facility] 2022-07-19 Outpatient [facility] [id number] [place] 16:06:29 [id number] [facility] 2023-11-01 2023-11-01 Outpatient RACHNA AYERSSEY [id number] [place] 10:00:00 10:00:00 MITCHELL Seybol d 2023-09-21 2023-09-21 Outpatient MARY RACHNA GORMAN [id number] [place] 15:15:00 15:15:00 REESE Seybol d 2023-09-10 2023-09-10 Outpatient UDOETUK RACHNA GORMAN [id number] [place] 15:10:00 15:10:00 PEACE Seybol d 2023-09-04 2023-09-04 Outpatient MARYRACHNA [id number] [place] 13:45:00 13:45:00 REESE Seybol d 2023-07-27 2023-07-27 Outpatient MARY RACHNA GORMAN [id number] [place] 09:45:00 09:45:00 REESE Seybol d 2023-07-19 2023-07-19 Outpatient RACHNA LEE [id number] [place] 11:30:00 11:30:00 GENE Seybol d 2023-07-18 2023-07-18 Outpatient UDLEXHalUK RACHNA GORMAN [id number] [place] 09:30:00 09:30:00 PEACE Seybol d 2023-07-11 2023-07-11 Outpatient PRERACHNA FUENTES [id number] [place] 00:00:00 00:00:00 GENE Seybol d 2023-07-10 2023-07-10 Outpatient RACHNA LEE [id number] [place] 15:00:00 15:00:00 GENE Seybol d 2023-07-10 2023-07-10 Outpatient PRERACHNA FUENTES [id number] [place] 15:00:00 15:00:00 GENE Seybol d 2023-07-09 2023-07-09 Outpatient RACHNA BARRETT [id number] [place] 15:00:00 15:00:00 MAGO Seybol d 2023-07-09 2023-07-09 Outpatient RACHNA LEE [id number] [place] 00:00:00 00:00:00 GENE Seybol d 2023-06-30 2023-07-05 Inpatient ER TAMARA ALAMO [facility] Gastro [id number] [facility] 07:09:00 12:03:00 2023-06-30 2023-07-05 [facility] Chance Montes [facility] [id number] 07:09:00 12:03:00 Encounter Marlee Botello [facility], [facility] 2023-06-30 2023-07-05 [facility] Chance Montes [facility] [id number] 07:09:00 12:03:00 Encounter Melissajuliánluan Marlee Abdelrahman [facility] 2023-07-05 2023-07-05 Outpatient TAMARA ALAMO RACHNA GORMAN [id number] Rachna 00:00:00 00:00:00 Seybol d 2023-07-05 2023-07-05 Outpatient RACHNA GORMAN [id number] [place] 00:00:00 00:00:00 Seybol d 2023-07-05 2023-07-05 Outpatient RACHNA LEE [id number] [place] 00:00:00 00:00:00 GENE Seybol d 2023-07-04 2023-07-04 Outpatient ZEKE SIMENTAL RACHNA GORMAN [id number] Rachna 00:00:00 00:00:00 Seybol d 2023-07-03 2023-07-03 Outpatient EL TAMARA ALAMO [facility] [id number] SLE 15:46:47 15:46:47 2023-07-03 2023-07-03 Outpatient RACHNA GORMAN [id number] [place] 00:00:00 00:00:00 Seybol d 2023-07-03 2023-07-03 Outpatient RACHNA ASTUDILLO [id number] [place] 00:00:00 00:00:00 EDISON Seybol d 2023-07-01 2023-07-01 Surgery Misti [facility] [id number] 08:00[facility]00 09[facility]00[facility] 2023-07-01 Surgery Misti [facility] [id number] 08:00:00 09:00:00 Natasha Dick [facility] 2023-07-01 2023-07-01 [facility]esthesia [facility] [id number] [facility] 08:05:00 08:31:00 Event [facility] 2023-07-01 2023-07-01 [facility] [id number] [facility] 08:05:00 08:31:00 Event Macey [facility] 2023-07-01 2023-07-01 Outpatient SERGIO GORMAN [id number] Rachna 00:00:00 00:00:00 , MARLEE dick 2023-06-29 2023-06-30 Emergency X YARIMA, [facility] ERT [id number] Univers 22:23:00 06:15:00 [facility] 2023-06-29 2023-06-30 Emergency [facility] [id number] Univers 22:23:00 06:15:00 [facility] [id number] ity [facility] [id number] [facility] [id number] [address] 2023-06-30 2023-06-30 Outpatient RACHNA CHAPPELL [id number] [place]achna 00:00:00 00:00:00 NATASHA dick 2023-06-19 2023-06-[address] [facility], [facility] Surgery [id number] SLE 06:11:00 12:10:00 RADU 2023-06-19 2023-06-28 Day [facility] [id number] 06:11:00 12:10:00 Encounter Radu [facility] 2023-06-19 2023-06-28 [facility] [id number] 06:11:00 12:10:00 Encounter [facility] 2023-06-28 2023-06-28 Outpatient KAYLEEElderRACHNA [id number] [place] 00:00:00 00:00:00 GENE Seybol d 2023-06-28 2023-06-28 Outpatient RACHNA GORMAN [id number] [place] 00:00:00 00:00:00 Seybol d 2023-06-28 2023-06-28 Outpatient CHRISRACHNA [id number] [place]achna 00:00:00 00:00:00 STEEVEN Seybol d 2023-06-27 2023-06-27 Outpatient ZEKE SIMENTAL RACHNA GORMAN [id number] Rachna 11:00:00 11:00:00 Seybol d 2023-06-26 2023-06-26 Inpatient EL ROPPER, [facility] [id number] [facility] 15:43:39 23:59:00 [facility] 2023-06-26 2023-06-26 Day [facility] [id number] 13:55:00 23:59:00 Encounter [facility] 2023-06-26 2023-06-26 Day [facility] [id number] 13:55:00 23:59:00 Encounter [facility] 2023-06-26 2023-06-26 Outpatient EL ROPPER, [facility] [id number] [facility] 00:00:00 00:00:00 [facility] 2023-06-24 2023-06-24 Outpatient EL ROPPER, [facility] [id number] [facility] 12:27:34 12:27:34 [facility] 2023-06-24 2023-06-24 Orders [facility] [id number] 00:00:00 00:00:00 [facility] 2023-06-24 2023-06-24 Orders [facility] [id number] 00:00:00 00:00:00 Only [facility] 2023-06-23 2023-06-23 Outpatient EL ROPPER, [facility] [id number] [facility] 05:36:56 05:36:56 RADU 2023-06-21 2023-06-21 Outpatient RACHNA PEREZ RACHNA [id number] Rachna 00:00:00 00:00:00 ROSARIO valarie dick 2023-06-20 2023-06-20 Outpatient JESUS RACHNA GORMAN [id number] Rachna 09:20:00 09:20:00 PEACE dick 2023-06-19 2023-06-19 Surgery Ropper, [facility] [id number] 07:30:00 15:20:00 [facility] 2023-06-19 2023-06-19 Surgery Ropper, [facility] [id number] 07:30:00 15:20:00 [facility] 2023-06-19 2023-06-19 Anesthesia Hafkin, [facility] [id number] 07:30:00 15:14:00 Event [facility] 2023-06-19 2023-06-19 Anesthesia Hafkin, [facility] [id number] 07:30:00 15:14:00 Event [facility] 2023-06-19 2023-06-19 Outpatient EL ROPPER, [facility] [id number] [facility] 10:22:49 10:22:49 [facility] 2023-06-19 2023-06-19 Outpatient EL ROPPER, [facility] [id number] [facility] 10:09:45 10:09:45 [facility] 2023-06-19 2023-06-19 Outpatient EL ROPPER, [facility] [id number] [facility] 10:09:45 10:09:45 [facility] 2023-06-19 2023-06-19 Outpatient EL ROPPER, [facility] [id number] [facility] 10:09:45 10:09:45 [facility] 2023-06-19 2023-06-19 Outpatient EL ROPPER, [facility] [id number] [facility] 10:09:45 10:09:45 [facility] 2023-06-19 2023-06-[address] [facility] [id number] [facility] 00:00:00 [facility] 2023-06-19 2023-06-[address] [facility] [id number] [facility] 00:[facility] 00:00:00 [facility] 2023-06-18 2023-06-18 Outpatient RACHNA LEE [id number] Rachna 09:40:00 09:40:00 PEACE Seybol d 2023-06-18 2023-06-18 Outpatient ARIAS WALTERS [facility] [id number] [facility] 00:00:00 00:00:00 RADU 2023-06-18 2023-06-18 Outpatient LUKE GORMAN [id number] Rachna 00:00:00 00:00:00 MD FRANCESCO Seybol d 2023-06-18 2023-06-18 Outpatient RACHNA GORMAN [id number] [place]na 00:00:00 00:00:00 Seybol d 2023-06-18 2023-06-[address] [facility] [id number] [facility] 00:[facility]00 00:00:00 [facility] 2023-06-18 2023-06-[address] [facility] [id number] [facility] 00:00:00 [facility] 2023-06-16 2023-06-16 Outpatient RACHNA HERNANDEZ [id number] [place] 00:00:00 00:00:00 REESE Seybol d 2023-06-16 2023-06-16 Outpatient RACHNA LEE [id number] [place] 00:00:00 00:00:00 GENE Seybol d 2023-06-14 2023-06-14 Outpatient RACHNA ANDERSON [id number] [place] 14:30:00 14:30:00 JALAJA Seybol d 2023-06-14 2023-06-14 Outpatient RACHNA LEE [id number] [place] 00:00:00 00:00:00 GENE Seybol d 2023-06-14 2023-06-14 Outpatient RACHNA GORMAN [id number] [place]na 00:00:00 00:00:00 Seybol d 2023-06-14 2023-06-14 Outpatient NATE RACHNA GORMAN [id number] [place] 00:00:00 00:00:00 RADU Seyb old 2023-06-12 2023-06-12 Outpatient LAB90 RACHNA GORMAN [id number] [place]na 15:30:00 15:30:00 Seybol d 2023-06-12 2023-06-12 Outpatient PREZARACHNA Friedman [id number] [place]na 15:00:00 15:00:00 GENE Seybol d 2023-06-09 2023-06-09 Outpatient RACHNA HERNANDEZ [id number] [place] 00:00:00 00:00:00 REESE Seybol d 2023-06-09 2023-06-09 Outpatient PREZASRACHNA [id number] [place] 00:00:00 00:00:00 GENE Seybol d 2023-06-05 2023-06-05 Outpatient PREZASRACHNA [id number] [place]na 11:15:00 11:15:00 GENE Seybol d 2023-06-05 2023-06-05 Outpatient RACHNA GORMAN [id number] [place] 00:00:00 00:00:00 Seybol d 2023-06-05 2023-06-05 Outpatient MYJEROMYSEYSHARIFTrevon GORMAN [id number] Rachna 00:00:00 00:00:00 MD FRANCESCO Seybol d 2023-06-02 2023-06-02 Outpatient RACHNA HERNANDEZ [id number] [place] 00:00:00 00:00:00 REESE Seybol d 2023-06-02 2023-06-02 Outpatient PREZARACHNA Friedman [id number] [place] 00:00:00 00:00:00 GENE Seybol d 2023-06-01 2023-06-01 Outpatient RACHNA GORMAN [id number] [place]na 00:00:00 00:00:00 Seybol d 2023-05-29 2023-05-29 Outpatient RACHNA HERNANDEZ [id number] [place]na 10:15:00 10:15:00 REESE Seybol d 2023-05-26 2023-05-26 Outpatient PREZAS, RACHNA GORMAN [id number] [place] 00:00:00 00:00:00 GENE Seybol d 2023-05-25 2023-05-25 Outpatient IGWALARACHNA [id number] [place]achna 00:00:00 00:00:00 STANFORD Seyb old 2023-05-24 2023-05-24 Outpatient SIMENTAL, ZEKE GORMAN [id number] Rachna 00:00:00 00:00:00 Seybol d 2023-05-24 2023-05-24 Outpatient SIMENTAL, ZEKE GORMAN [id number] [place]achna 00:00:00 00:00:00 Seybol d 2023-05-23 2023-05-23 Outpatient LAB39 RACHNA GORMAN [id number] [place]achna 10:55:00 10:55:00 Seybol d 2023-05-23 2023-05-23 Outpatient UDOETUK, RACHNA GORMAN [id number] Rachna 10:20:00 10:20:00 PEACE Seybol d 2023-05-23 2023-05-23 Outpatient RACHNA GORMAN [id number] [place]achna 00:00:00 00:00:00 Seybol d 2023-05-22 2023-05-22 Outpatient PREZASRACHNA [id number] [place]achna 00:00:00 00:00:00 GENE Seybol d 2023-05-21 2023-05-21 Outpatient SIMENTAL, ZEKE GORMAN [id number] Rachna 00:00:00 00:00:00 Seybol d 2023-05-20 2023-05-20 Outpatient PREZASRACHNA [id number] [place]achna 00:00:00 00:00:00 GENE Seybol d 2023-05-20 2023-05-20 Outpatient OSUNARACHNA [id number] [place] 00:00:00 00:00:00 RAJNI Seybol d 2023-05-18 2023-05-18 Outpatient RACHNA GORMAN [id number] [place]na 00:00:00 00:00:00 Seybol d 2023-05-16 2023-05-16 Outpatient PREZARACHNA Friedman [id number] [place]na 00:00:00 00:00:00 GENE Seybol d 2023-05-13 2023-05-13 Outpatient PREZARACHNA Friedman [id number] [place]na 00:00:00 00:00:00 GENE Seybol d 2023-05-11 2023-05-11 Outpatient RACHNA BURRIS [id number] Rachna 14:30:00 14:30:00 KOLE Seybol d 2023-05-10 2023-05-10 Outpatient OSUNARACHNA MENSAH [id number] Rachna 10:20:00 10:20:00 RAJNI Seybol d 2023-05-08 2023-05-08 Outpatient PREZASRACHNA [id number] [place]na 11:00:00 11:00:00 GENE Seybol d 2023-05-08 2023-05-08 Outpatient PREZARACHNA Friedman [id number] [place] 00:00:00 00:00:00 GENE Seybol d 2023-05-04 2023-05-04 Outpatient PREZARACHNA Friedman [id number] [place] 00:00:00 00:00:00 GENE Seybol d 2023-04-27 2023-04-27 Outpatient RACHNA JONES [id number] [place]achna 11:00:00 11:00:00 LESLI Seybol d 2023-04-27 2023-04-27 Outpatient PREZARACHNA Friedman [id number] [place] 00:00:00 00:00:00 GENE Seybol d 2023-04-26 2023-04-26 Outpatient RACHNA MCKINNEY [id number] [place]na 11:00:00 11:00:00 RASHAAD Seybol d 2023-04-26 2023-04-26 Outpatient PREZARACHNA Friedman [id number] [place] 00:00:00 00:00:00 GENE Seybol d 2023-04-25 2023-04-25 Outpatient NATE RACHNA GORMAN [id number] [place]achna 14:45:00 14:45:00 RADU Seyb old 2023-04-25 2023-04-25 Outpatient LAB39 RACHNA GORMAN [id number] [place]na 14:15:00 14:15:00 Seybol d 2023-04-25 2023-04-25 Outpatient MOE RACHNA GORMAN [id number] [place] 11:30:00 11:30:00 SONIA Seybo ld 2023-04-25 2023-04-25 Outpatient UDJAIME RACHNA GORMAN [id number] [place]na 09:20:00 09:20:00 PEACE Seybol d 2023-04-25 2023-04-25 Outpatient 1, OPTICAL RACHNA GORMAN [id number] Rachna 09:10:00 09:10:00 Seybol d 2023-04-25 2023-04-25 Outpatient RACHNA LEE [id number] [place]na 00:00:00 00:00:00 GENE Seybol d 2023-04-23 2023-04-23 Outpatient RACHNA LEE [id number] [place]na 00:00:00 00:00:00 GENE Seybol d 2023-04-20 2023-04-20 Outpatient RACHNA LEE [id number] [place] 00:00:00 00:00:00 GENE Seybol d 2023-04-20 2023-04-20 Outpatient RACHNA LEE [id number] [place]na 00:00:00 00:00:00 GENE Seybol d 2023-04-19 2023-04-19 Outpatient RACHNA LEE [id number] [place] 00:00:00 00:00:00 GENE Seybol d 2023-04-19 2023-04-19 Telephone ALBIN Telles [id number] Univers 00:00:00 00:00:00 Fabien Hudson MULTISPEC [id number] ity of [place] [id number] [facility] [id number] [address] [facility] 2023-04-18 2023-04-18 Orders Doctor PEREZ [id number] Univers 00:00:00 00:00:00 Only Unassigned, ELLEN [id number] ity of [facility] [id number] [facility] [id number] [address] 2023-04-13 2023-04-13 Outpatient RACHNA GORMAN [id number] [place]achna 09:30:00 09:30:00 Seybol d 2023-04-13 2023-04-13 Outpatient RACHNA GORMAN [id number] [place]achna 09:00:00 09:00:00 Seybol d 2023-04-13 2023-04-13 Outpatient RACHNA MCKINNEY [id number] [place]na 00:00:00 00:00:00 RASHAAD Seybol d 2023-04-12 2023-04-12 Outpatient RACHNA LEE [id number] [place]na 11:15:00 11:15:00 GENE Seybol d 2023-04-11 2023-04-11 Outpatient RACHNA ROSA [id number] [place]na 09:30:00 09:30:00 JAMES Seybol d 2023-04-11 2023-04-11 Outpatient RACHNA SILVA [id number] [place]na 00:00:00 00:00:00 MICHELLE Seybol d 2023-04-06 2023-04-06 Outpatient RACHNA LEE [id number] [place]na 00:00:00 00:00:00 GENE Seybol d 2023-04-05 2023-04-05 Telephone [facility] [id number] [facility] 00:00:00 00:00:00 Malorie roberts [id number] ity of [facility] [id number] [facility] [id number] [facility] AND MONSE [address] [facility] 2023-04-04 2023-04-04 Outpatient RACHNA LEE [id number] [place]achna 00:00:00 00:00:00 GENE Seybol d 2023-04-04 2023-04-04 Outpatient PREZAS RACHNA GORMAN [id number] [place] 00:00:00 00:00:00 GENE Seybol d 2023-03-26 2023-03-26 Outpatient SIMENTALZEKE RACHNA GORMAN [id number] Rachna 00:00:00 00:00:00 Seybol d 2023-03-26 2023-03-26 Outpatient RACHNA GORMAN [id number] [place] 00:00:00 00:00:00 Seybol d 2023-03-26 2023-03-26 Outpatient RACHNA GORMAN [id number] [place]na 00:00:00 00:00:00 Seybol d 2023-03-23 2023-03-23 Outpatient SIMENTAL, AARONDelonGilberto RACHNA GORMAN [id number] Rachna 00:00:00 00:00:00 Seybol d 2023-03-22 2023-03-22 Outpatient DEANNARACHNA [id number] [place]na 11:00:00 11:00:00 NEETU Seybol d 2023-03-20 2023-03-20 Outpatient RACHNA GORMAN [id number] [place] 00:00:00 00:00:00 Seybol d 2023-03-14 2023-03-14 Outpatient PREZASRACHNA [id number] [place]achna 00:00:00 00:00:00 GENE Seybol d 2023-03-14 2023-03-14 Outpatient RACHNA GORMAN [id number] [place]na 00:00:00 00:00:00 Seybol d 2023-03-13 2023-03-13 Outpatient PREZASRACHNA [id number] [place] 11:15:00 11:15:00 GENE Seybol d 2023-03-13 2023-03-13 Outpatient SIMENTALAARONMICHELLE GORMAN [id number] Rachna 00:00:00 00:00:00 Seybol d 2023-03-12 2023-03-12 Outpatient PREZARACHNA Friedman [id number] [place]achna 00:00:00 00:00:00 GENE Seybol d 2023-03-12 2023-03-12 Outpatient PREZAS, RACHNA GORMAN [id number] [place]achna 00:00:00 00:00:00 GENE Seybol d 2023-03-12 2023-03-12 Outpatient DEANNA RACHNA GORMAN [id number] [place]achna 00:00:00 00:00:00 NEETU Seybol d 2023-03-07 2023-03-07 Outpatient SIMENTALZEKE RACHNA PINZONSEY [id number] Rachna 10:30:00 10:30:00 Seybol d 2023-03-02 2023-03-02 Outpatient DEANNA RACHNA GORMAN [id number] Rachna 13:00:00 13:00:00 NEETU Seybol d 2023-02-26 2023-02-26 Outpatient DEANNARACHNA SYLVESTER [id number] Rachna 00:00:00 00:00:00 NEETU Seybol d 2023-02-22 2023-02-22 Outpatient MYKELSEYONL RACHNA GORMAN [id number] Rachna 00:00:00 00:00:00 MD FRANCESCO Seybol d 2023-02-21 2023-02-21 Outpatient LAB39 RACHNA GORMAN [id number] [place]achna 11:35:00 11:35:00 Seybol d 2023-02-21 2023-02-21 Outpatient RACHNA HURTADO [id number] Rachna 10:40:00 10:40:00 SANTINO Seybol d 2023-02-21 2023-02-21 Outpatient RACHNA LEE [id number] [place]achna 00:00:00 00:00:00 GENE Seybol d 2023-02-20 2023-02-20 Outpatient LAB90 RACHNA GORMAN [id number] [place]achna 11:35:00 11:35:00 Seybol d 2023-02-20 2023-02-20 Outpatient RACHNA HURTADO [id number] Rachna 00:00:00 00:00:00 SANTINO Seybol d 2023-02-20 2023-02-20 Outpatient RACHNA HURTADO [id number] Rachna 00:00:00 00:00:00 SANTINO Seybol d 2023-02-20 2023-02-20 Outpatient PREZAS, RACHNA GORMAN [id number] [place]achna 00:00:00 00:00:00 GENE Seybol d 2023-02-19 2023-02-19 Outpatient PREZAS, RACHNA GORMAN [id number] [place]achna 00:00:00 00:00:00 GENE Seybol d 2023-02-19 2023-02-19 Outpatient MYKELSEYONL RACHNA GORMAN [id number] [place] 00:00:00 00:00:00 FRANCESCO MD Seybol d 2023-02-19 2023-02-19 Outpatient PREZAS, RACHNA GORMAN [id number] [place] 00:00:00 00:00:00 GENE Seybol d 2023-02-15 2023-02-15 Outpatient PREZAS, RACHNA GORMAN [id number] [place] 00:00:00 00:00:00 GENE Seybol d 2023-02-15 2023-02-15 Outpatient PREZAS, RACHNA GORMAN [id number] [place] 00:00:00 00:00:00 GENE Seybol d 2023-02-14 2023-02-14 Outpatient SIMENTAL, MEIYU RACHNA GORMAN [id number] [place] 10:30:00 10:30:00 Seybol d 2023-02-14 2023-02-14 Outpatient ROPPER, RACHNA GORMAN [id number] [place] 00:00:00 00:00:00 RADU Seyb old 2023-02-13 2023-02-13 Outpatient PREZAS, RACHNA GORMAN [id number] [place] 00:00:00 00:00:00 GENE Seybol d 2023-02-12 2023-02-12 Outpatient PREZAS, RACNHA GORMAN [id number] [place] 00:00:00 00:00:00 GENE Seybol d 2023-02-09 2023-02-09 Outpatient PREZAS, RACHNA GORMAN [id number] [place] 14:15:00 14:15:00 GENE Seybol d 2023-02-09 2023-02-09 Outpatient PREZAS, RACHNA GORMAN [id number] [place] 00:00:00 00:00:00 GENE Seybol d 2023-02-08 2023-02-08 Outpatient RACHNA ROSA [id number] [place] 15:10:00 15:10:00 JAMES Seybol d 2023-02-08 2023-02-08 Outpatient DEANNARACHNA [id number] [place] 10:00:00 10:00:00 NEETU Seybol d 2023-02-07 2023-02-07 Outpatient PRERACHNA FUENTES [id number] [place] 00:00:00 00:00:00 GENE Seybol d 2023-02-02 2023-02-02 Outpatient PREZARACHNA Friedman [id number] [place] 00:00:00 00:00:00 GENE Seybol d 2023-02-02 2023-02-02 Outpatient PANRACHNA LUTHER [id number] [place] 00:00:00 00:00:00 SANTINO Seybol d 2023-01-31 2023-01-31 Outpatient RACHNA LEE [id number] [place] 00:00:00 00:00:00 GENE Seybol d 2023-01-30 2023-01-30 Outpatient MILADY PAZ RACHNA GORMAN [id number] [place] 10:00:00 10:00:00 Seybol d 2023-01-29 2023-01-29 Outpatient PRERACHNA FUENTES [id number] [place] 00:00:00 00:00:00 GENE Seybol d 2023-01-24 2023-01-24 Outpatient RACHNA HURTADO [id number] [place] 11:20:00 11:20:00 SANTINO Seybol d 2023-01-24 2023-01-24 Outpatient PRERACHNA FUENTES [id number] [place] 00:00:00 00:00:00 GENE Seybol d 2023-01-24 2023-01-24 Outpatient RACHNA HURTADO [id number] [place] 00:00:00 00:00:00 SANTINO Seybol d 2023-01-24 2023-01-24 Outpatient RACHNA LEE [id number] [place] 00:00:00 00:00:00 GENE Seybol d 2023-01-24 2023-01-24 Outpatient PREZARACHNA Friedman [id number] [place] 00:00:00 00:00:00 GENE Seybol d 2023-01-22 2023-01-22 Outpatient PREZARACHNA Friedman [id number] [place] 00:00:00 00:00:00 GENE Seybol d 2023-01-22 2023-01-22 Outpatient RACHNA GORMAN [id number] [place] 00:00:00 00:00:00 Seybol d 2023-01-19 2023-01-19 Outpatient PRERACHNA FUENTES [id number] [place] 00:00:00 00:00:00 GENE Seybol d 2023-01-19 2023-01-19 Outpatient PRERACHNA FUENTES [id number] [place] 00:00:00 00:00:00 GENE Seybol d 2023-01-19 2023-01-19 Outpatient PREZASRACHNA [id number] [place] 00:00:00 00:00:00 GENE Seybol d 2023-01-18 2023-01-18 Outpatient RACHNA ROSS [id number] [place] 14:00:00 14:00:00 MOLLY Seybol d 2023-01-18 2023-01-18 Outpatient 1, OPTICAL RACHNA GORMAN [id number] [place] 10:50:00 10:50:00 Seybol d 2023-01-18 2023-01-18 Outpatient RACHNA FORDE [id number] [place] 10:40:00 10:40:00 KAMILA Seybol d 2023-01-18 2023-01-18 Outpatient RACHNA LEE [id number] [place] 00:00:00 00:00:00 PEACE Seybol d 2023-01-15 2023-01-15 Outpatient RACHNA GORMAN [id number] [place] 00:00:00 00:00:00 Seybol d 2023-01-15 2023-01-15 Outpatient RACHNA LEE [id number] [place] 00:00:00 00:00:00 GENE Seybol d 2023-01-11 2023-01-11 Outpatient CANMONIKRACHNA Friedman [id number] [place] 00:00:00 00:00:00 GENE Seybol d 2023-01-09 2023-01-09 Outpatient LAB90 RACHNA GORMAN [id number] [place] 14:45:00 14:45:00 Seybol d 2023-01-09 2023-01-09 Outpatient KAYLEERACHNA Friedman [id number] [place] 13:45:00 13:45:00 GENE Seybol d 2023-01-09 2023-01-09 Outpatient RACHNA SADLER [id number] [place] 00:00:00 00:00:00 DAYA Seybol d 2023-01-02 2023-01-02 Outpatient RACHNA GORMAN [id number] [place] 00:00:00 00:00:00 Seybol d 2022-12-28 2022-12-28 Outpatient RACHNA ROSA [id number] [place] 11:45:00 11:45:00 JAMES Seybol d 2022-12-26 2022-12-26 Outpatient RACHNA SAENZ [id number] [place] 11:00:00 11:00:00 RADHIKA Seybo ld 2022-12-25 2022-12-25 Outpatient RACHNA HUERTA [id number] [place] 11:00:00 11:00:00 NEETU Seybol d 2022-12-25 2022-12-25 Outpatient RACHNA HUERTA [id number] [place] 00:00:00 00:00:00 NEETU Seybol d 2022-12-25 2022-12-25 Outpatient MYRACHNAONTrevon GORMAN [id number] [place] 00:00:00 00:00:00 MD FRANCESCO Seybol d 2022-12-21 2022-12-21 Outpatient LAB39 RACHNA GORMAN [id number] [place] 11:15:00 11:15:00 Seybol d 2022-12-21 2022-12-21 Outpatient MILADY PAZ [id number] [place] 10:00:00 10:00:00 Seybol d 2022-12-18 2022-12-18 Outpatient LUKE RACHNA PINZONSEY [id number] [place] 00:00:00 00:00:00 MD FRANCESCO Seybol d 2022-12-13 2022-12-13 Outpatient RACHNA LEE [id number] [place] 09:45:00 09:45:00 GENE Seybol d 2022-12-12 2022-12-12 Outpatient RACHNA SULLIVAN [id number] [place] 00:00:00 00:00:00 RADU Seyb old 2022-12-11 2022-12-11 Outpatient RACHNA GORMAN [id number] [place] 10:30:00 10:30:00 Seybol d 2022-12-11 2022-12-11 Outpatient RACHNA SAENZ [id number] [place] 00:00:00 00:00:00 RADHIKA Seybo ld 2022-12-01 2022-12-01 Outpatient RACHNA LEE [id number] [place] 00:00:00 00:00:00 GENE Seybol d 2022-11-30 2022-11-30 Outpatient RACHNA ROSA [id number] [place] 09:10:00 09:10:00 JAMES Seybol d 2022-11-22 2022-11-22 Outpatient LAB90 RACHNA GORMAN [id number] [place] 11:55:00 11:55:00 Seybol d 2022-11-22 2022-11-22 Outpatient RACHNA LEE [id number] [place] 11:00:00 11:00:00 GENE Seybol d 2022-11-21 2022-11-21 Outpatient RACHNA GORMAN [id number] [place] 11:40:00 11:40:00 Seybol d 2022-11-21 2022-11-21 Outpatient RACHNA RODRIGUEZ [id number] [place] 10:00:00 10:00:00 AHMED Seybol d 2022-11-20 2022-11-20 Outpatient RACHNA SAENZ [id number] [place] 00:00:00 00:00:00 RADHIKA Seybo ld 2022-11-16 2022-11-16 Outpatient CANMONIKElder RACHNA GORMAN [id number] [place] 00:00:00 00:00:00 GENE Seybol d 2022-11-15 2022-11-15 Outpatient LAB90 RACHNA GORMAN [id number] [place] 10:05:00 10:05:00 Seybol d 2022-11-15 2022-11-15 Outpatient EMELIA RACHNA GORMAN [id number] [place] 09:30:00 09:30:00 GENE Seybol d 2022-11-14 2022-11-14 Outpatient RACHNA LEE [id number] [place] 00:00:00 00:00:00 GENE Seybol d 2022-11-13 2022-11-13 Outpatient LAB45 RACHNA GORMAN [id number] [place] 10:50:00 10:50:00 Seybol d 2022-11-13 2022-11-13 Outpatient RACHNA GORMAN [id number] [place] 10:30:00 10:30:00 Seybol d 2022-11-13 2022-11-13 Outpatient RACHNA GORMAN [id number] [place] 10:25:00 10:25:00 Seybol d 2022-11-13 2022-11-13 Outpatient RACHNA GORMAN [id number] [place] 10:20:00 10:20:00 Seybol d 2022-11-13 2022-11-13 Outpatient ZEKE SIMENTAL [id number] [place] 09:30:00 09:30:00 Seybol d 2022-11-03 2022-11-03 Outpatient RACHNA HUERTA [id number] [place] 00:00:00 00:00:00 NEETU Seybol d 2022-11-03 2022-11-03 Outpatient RACHNA GORMAN [id number] [place] 00:00:00 00:00:00 Seybol d 2022-11-03 2022-11-03 Outpatient LUKE GORMAN [id number] [place] 00:00:00 00:00:00 MD FRANCESCO Seybol d 2022-11-02 2022-11-02 Outpatient RACHNA TAYLOR [id number] [place] 11:15:00 11:15:00 GREATER Seybol d 2022-11-02 2022-11-02 Outpatient LAB78 RACHNA GORMAN [id number] [place] 10:45:00 10:45:00 Seybol d 2022-11-02 2022-11-02 Outpatient DEANNARACHNA SYLVESTER [id number] [place] 10:00:00 10:00:00 NEETU Seybol d 2022-10-24 2022-10-24 Outpatient RACHNA GORMAN [id number] [place] 10:55:00 10:55:00 Seybol d 2022-10-24 2022-10-24 Outpatient RACHNA SAENZ [id number] [place] 09:45:00 09:45:00 RADHIKA Seybo ld 2022-10-20 2022-10-20 Outpatient RACHNA LEE [id number] [place] 00:00:00 00:00:00 GENE Seybol d 2022-10-17 2022-10-17 Outpatient RACHNA RODRIGUEZ [id number] [place] 09:30:00 09:30:00 AHMED Seybol d 2022-10-03 2022-10-03 Outpatient RACHNA LÓPEZ [id number] [place] 11:00:00 11:00:00 CORAZON Seybol d 2022-10-03 2022-10-03 Outpatient RACHNA LEE [id number] [place] 00:00:00 00:00:00 GENE Seybol d 2022-09-28 2022-09-28 Outpatient RACHNA LEE [id number] [place] 00:00:00 00:00:00 GENE Seybol d 2022-09-27 2022-09-27 Outpatient RACHNA LEE [id number] [place] 00:00:00 00:00:00 GENE Seybol d 2022-09-22 2022-09-22 Outpatient RACHNA SOLER [id number] [place] 10:45:00 10:45:00 FRANCOIS Se ybold 2022-09-22 2022-09-22 Outpatient PREZAElder RACHNA GORMAN [id number] [place] 00:00:00 00:00:00 GENE Seybol d 2022-09-22 2022-09-22 Outpatient PREZAElder RACHNA GORMAN [id number] [place] 00:00:00 00:00:00 GENE Seybol d 2022-09-21 2022-09-21 Outpatient DEANNA RACHNA GORMAN [id number] [place] 13:30:00 13:30:00 NEETU Seybol d 2022-09-21 2022-09-21 Outpatient LAB90 RACHNA GORMAN [id number] [place] 09:35:00 09:35:00 Seybol d 2022-09-21 2022-09-21 Outpatient MYJEROMYSEYONL RACHNA GORMAN [id number] [place] 00:00:00 00:00:00 MD FRANCESCO Seybol d 2022-09-20 2022-09-20 Outpatient PREZAS RACHNA GORMAN [id number] [place] 00:00:00 00:00:00 GENE Seybol d 2022-09-14 2022-09-14 Outpatient MICHAEL RACHNA GORMAN [id number] [place] 00:00:00 00:00:00 AHMED Seybol d 2022-09-14 2022-09-14 Outpatient PREZAElder RACHNA GORMAN [id number] [place] 00:00:00 00:00:00 GENE Seybol d 2022-09-13 2022-09-13 Outpatient PREZAS RACHNA GORMAN [id number] [place] 15:45:00 15:45:00 GENE Seybol d 2022-08-07 2022-08-07 Outpatient [facility] [id number] [place] 11:00:00 11:00:00 [facility] 2022-06-23 2022-07-02 Inpatient nullFlavo [facility] [id number] Memoria 19:30:00 20:45:[address] 2022-06-23 2022-07-02 Inpatient nullFlavo [facility] [id number] Memoria 19:30:00 20:45:00 r Dayo 94 l [facility] 2022-06-23 2022-07-02 Outpatient Mary [facility] [id number] 14:30:00 15:45:00 Neftali 94 [place] 2022-06-23 2022-07-02 Inpatient U [facility] [id number] 14:30:00 15:45:00 NEFTALI 2022-06-21 2022-06-23 Inpatient nullFlavo [facility] [id number] Memoria 08:19:00 19:00:00 r [place] 92 l [facility] 2022-06-21 2022-06-23 Inpatient nullFlavo [facility] [id number] Memoria 08:19:00 19:00:00 r Dayo 92 l [facility] 2022-06-23 2022-06-23 Outpatient Mary [facility] [id number] 14:30:00 14:30:00 Neftali 94 [place] 2022-06-21 2022-06-[address] [facility] [id number] 03:19:00 14:00:00 Aliza 92 Shireen 2022-06-21 2022-06-23 Inpatient Gilberto LUCIOSHAWN [facility] [id number] [facility] 03:19:00 14:00:00 ALIZA 2022-06-21 2022-06-21 Outpatient [facility] [id number] [place] 12:30:00 12:30:[facility] 2022-06-21 Emergency nullFlavo [facility] [id number] Memoria 00:31:51 07:22:[address] [facility] 2022-06-21 2022-06-21 Emergency nullFlavo [facility] [id number] Memoria 00:31:51 07:22:[address] [facility] 2022-06-20 2022-06-21 Outpatient Iheme, Britney MHPL MHPL [id number] 19:31:51 02:22:00 U 00 2022-06-20 2022-06-21 Outpatient Iheme, Britney MHPL MHPL [id number] 19:31:51 02:22:00 U 00 2022-06-20 2022-06-21 Emergency E IHCLIVE, BRITNEY MHBL MHBL [id number] MHBL 19:31:00 02:22:00 2022-04-17 2022-04-17 Emergency X MICHAEL [facility] ERT [id number] Univers 16:08:00 19:03:00 JUANA ward of [facility] 2022-04-17 2022-04-17 [facility] [id number] [facility] 16:08:00 19:03:00 Juana Snyder BOLINAS 350.1.13.10 [place] [id number] [facility] 084 [place] 2021-01-04 2021-01-04 Outpatient R NAVIN [facility] [id number] Univers 13:45:00 13:45:00 MUSA pabon [facility] 2020-12-24 2020-12-24 Office [facility] [id number] Univers 09:16:09 10:04:56 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 350.1.13.10 ity of [facility] 4.2.7.2.686 Farooq as MATERNAL [id number] Med ical & CHILD [address] [place] [address] 2020-12-24 2020-12-24 Outpatient R NAVIN [facility] [id number] Univers 09:00:00 09:00:00 MUSA pabon [facility] 2020-12-24 2020-12-24 Orders Doctor CHRIS [id number] [id number] Univers 00:00:00 00:00:00 Only Unassigned, ELLEN 350.1.13.10 ity of [place] [facility] 4.2.7.2.686 [place]ooq as [phone] [facility] [address] [place] 2020-11-16 2020-11-16 Patient Rohan [facility] 1.2.840.114 [id number] Univers 00:00:00 00:00:00 Outreach Leandro [facility] 350.1.13.10 i ty of [facility] [place]2.7.2.[place] [id number] [address] 2020-05-27 2020-05-27 Outpatient R AKINSIPE, [facility] [id number] Univers 08:15:00 08:15:00 MUSA ity o f [facility] 2020-05-27 2020-05-27 Outpatient R AKINSIPE, [facility] [id number] Univers 08:15:00 08:15:00 MUSA ity o [facility] 2020-05-27 2020-05-27 Outpatient R [facility] [id number] Univers 07:45:00 07:45:00 ity of [facility] 2020-02-25 2020-02-25 Office Akinsipe, [facility] [id number] Univers 13:05:53 13:56:05 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 350.1.13.10 ity of [facility] 4.2.7.2.686 [place] as MATERNAL [id number] [facility] ical & CHILD [address] [place] [address] 2020-02-25 2020-02-25 Outpatient R AKINSIPE, [facility] [id number] Univers 13:15:00 13:15:00 MUSA ity o [facility] 2020-02-25 2020-02-25 Outpatient R AKINSIPE, [facility] [id number] Univers 13:15:00 13:15:00 MUSA ity o [facility] 2020-02-25 2020-02-25 Outpatient R AKINSIPE, [facility] [id number] Univers 13:15:00 13:15:00 MUSA ity o [facility] 2020-01-19 2020-01-19 Nurse Visit, Ang-Rmchp Nurse [facility] 1.2 .840.114 [id number] Univers 14:11:10 14:26:10 Visit Musa Holden 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 350.1.13. 10 ity of [facility] 4.2.7.2.686 [place] as MATERNAL [id number] [facility] ical & CHILD [address] [place] [address] 2020-01-19 2020-01-19 Telemedici Navin [facility] 1.2.840.114 [id number] Univers 08:10:27 11:02:57 ne 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 350.1.13.10 ity of REGIONAL 4.2.7.2.686 [place]q as MATERNAL [id number] [facility] & [address] 2020-01-19 2020-01-19 Outpatient R [facility] [id number] Univers 10:45:00 10:45:00 MUSA ity o f [facility] 2020-01-19 2020-01-19 Outpatient R [facility] [id number] Univers 10:45:00 10:45:00 MUSA ity o f [facility] 2020-01-16 2020-01-16 Orders Doctor CHRIS 1.2.840.114 [id number] Univers 00:00:00 00:00:00 Only Unassigned, ELLEN 350.1.13.10 ity of [place] [facility] 4.2.7.2.686 [place]q as [id number] [address] 2019-12-27 2019-12-27 Emergency X CHAVIRA, [facility] ERT [id number] Univers 10:42:28 13:30:00 MARYBEL [facility] 2019-12-19 2019-12-19 Telephone Pcp, [facility] [id number] Univers 00:00:00 00:00:00 Patient 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 350.1.13.10 it y of Does Not [place] MATERNAL [id number] [facility] & CHILD [address] [place] [address] Results Test Description Test Time Test Comments Results Result Sour e Comments arvind auris 2023-07-[address] [facility] screening 00:16:41 [id number] Medical 3 12:16 AM Center [facility] NON-INTERFACED REFERENCE LABS arvind auris 2023-07-[address] [facility] screening 00:16:41 [id number] Medical 3 12:16 AM Center CSTSLE NON-INTERFACED REFERENCE LABS arvind auris 2023-07-[address] [facility] screening 00:16:41 [id number] Medical 3 12:16 AM Center [facility] NON-INTERFACED REFER[facility] LABS POC-Glucose meter 2023-07-05 08:11:18 Test Item Value Reference Range Interpretation Comme nts POC-Glucose Meter (test code = 264 mg/dL 70-110 H : [facility] 67[address] [facility] 1538) [facility], [facility] 30: Do All Operator/Techni pawan ID = [id number] for Phil Glover a Lab Interpretation (test code = Abnormal 89443-0) [facility] [id number] 08:11:18 Test Item Value Reference Range Interpretation Comments POC-Glucose Meter (test 264 mg/dL 70-110 H : TE STED AT [facility] code = 1538) [address] [place] [address], [facility] 30: Do All Operator/Techni pawan ID = [id number] for Linda Gloverl a Lab Interpretation (test Abnormal code = 44250-9) [facility]-Glucose [id number] 08:11:18 Test Item Value Reference Range Interpretation Comments POC-Glucose Meter (test 264 mg/dL 70-110 H : TE STED AT [facility] code = 1538) [address] [place] [address], [facility] 30: Do All Operator/Techni pawan ID = [id number] for Linda Gloverl a Lab Interpretation (test Abnormal code = 10278-9) [facility] [id number] 08:11:18 Test Item Value Reference Range Interpretation Comments POC-GLUCOSE METER 264 mg/dL 70-110 H : TESTED A T [facility] 6720 (BEAKER) (test code = [facility], 1538) 86057: Do All Operator/Techni pawan ID = [id number] for Inez Barnes POCT-GLUCOSE [id number] 22:02:55 Test Item Value Reference Range Interpretation Comments POC-GLUCOSE METER 315 mg/dL 70-110 H : TESTED A T [facility] 6720 (BEAKER) (test code = [facility], 1538) 44380: Do All Operator/Techni pawan ID = [id number] for ASYA BATEMANIA POCT-GLUCOSE [id number] 17:56:37 Test Item Value Reference Range Interpretation Comments POC-GLUCOSE METER 205 mg/dL 70-110 H : TESTED A T [facility] 6720 (BEAKER) (test code = [facility], 1538) 06041: Do All Operator/Techni pawan ID = [id number] for Inez Barnes POCT-GLUCOSE [id number] 12:13:34 Test Item Value Reference Range Interpretation Comments POC-GLUCOSE METER 248 mg/dL 70-110 H : TESTED A T [facility] 6720 (BEAKER) (test code = [facility], 1538) 18946: Do All Operator/Techni pawan ID = [id number] for Inez Barnes POCT-GLUCOSE [id number] 08:15:29 Test Item Value Reference Range Interpretation Comments POC-GLUCOSE METER 226 mg/dL 70-110 H : TESTED A T [facility] 6720 (BEAKER) (test code = [facility], 1538) 67169: Do All Operator/Techni pawan ID = [id number] for Inez Barnes BASIC METABOLIC [id number] 06:15:38 Test Item Value Reference Range Interpretation Comments SODIUM (BEAKER) 138 meq/L 136-145 (test code = 381) POTASSIUM 3.8 meq/L 3.5-5.1 (BEAKER) (test code = 379) CHLORIDE (BEAKER) 104 meq/L 98-107 (test code = 382) CO2 (BEAKER) 24 meq/L 22-29 (test code = 355) BLOOD UREA 13 mg/dL 7-21 NITROGEN (BEAKER) (test code = 354) CREATININE 0.69 mg/dL 0.57-1.25 (BEAKER) (test code = 358) GLUCOSE RANDOM 241 mg/dL 70-105 H (BEAKER) (test code = 652) CALCIUM (BEAKER) 8.9 mg/dL 8.4-10.2 (test code = 697) EGFR (BEAKER) 102 Interpretatio n of eGFR (test code = mL/min/1.73 values Stage De scription 1092) sq m Result G1 Leilani l or high >=90 G2 Mildly decreased 60-89 G3a Mildl y to moderately 45-5 9 G3b Moderately to s everely 30-44 G4 Severl y decreased 15-29 G5 Kidney failure <15Reported eGF R is based on the CKD-EPI 2020 equation that d oes not use a race coefficientEsti mated GFR is not as accur ate as Creatinine Stacey galoce in predicting glom erular filtration rate . Estimated GFR is not appl icable for dialysis patien ts Do All Operator ID - ADMINCBC (HEMOGRAM ONLY)2023-07-04 05:40:27 Test Item Value Reference Range Interpretation Comments WHITE BLOOD CELL COUNT (BEAKER) 10.5 K/ L 3.5-10.5 (test code = 775) RED BLOOD CELL COUNT (BEAKER) 3.52 M/ L 3.93-5.22 L (test code = 761) HEMOGLOBIN (BEAKER) (test code = 9.2 GM/DL 11.2-15.7 L 410) HEMATOCRIT (BEAKER) (test code = 30.8 % 34.1-44.9 L 411) MEAN CORPUSCULAR VOLUME (BEAKER) 88 fL 79-95 (test code = 753) MEAN CORPUSCULAR HEMOGLOBIN 26.1 pg 25.6-32.2 (BEAKER) (test code = 751) MEAN CORPUSCULAR HEMOGLOBIN CONC 29.9 GM/DL 32.2-35.5 L (BEAKER) (test code = 752) RED CELL DISTRIBUTION WIDTH 14.7 % 11.7-14.4 H (BEAKER) (test code = 412) PLATELET COUNT (BEAKER) (test 463 K/CU MM 150-450 H code = 756) MEAN PLATELET VOLUME (BEAKER) 10.5 fL 9.4-12.3 (test code = 754) NUCLEATED RED BLOOD CELLS 0 /100 WBC 0-0 (BEAKER) (test code = 413) XR CHEST 1 VIEW PORTABLE / [id number] 02:08:14 [facility] : 1965 Sex: FEXAM: XR CHEST 1 VIEW PORTABLE / BEDSIDECLINICAL: Low grade FeverCOMPARISON: None.FINDINGS:The lungs are underinflated resulting in vascular crowding andsubsegmental atelectasis. There is no focal consolidation. No sizableeffusion or pneumothorax. No evidence of overt pulmonary edema. Thecardiac silhouette and mediastinal contours are within normal limits. Noacute bony abnormality. Partially seen thoracolumbar fusion hardware.IMPRESSION:No acute process.Electronically Signed By: Cassia Purcell302:10 CDTWorkstation Name: [id number] 22:24:18 Test Item Value Reference Range Interpretation Comments POC-GLUCOSE METER 296 mg/dL 70-110 H : TESTED A T [facility] 6720 (&TV [facility]EN[facility]) (test code = [facility], 1538) 49850: Do All Operator/Techni pawan ID = [id number] for [place] RBAJAL, ARIEL POCT-GLUCOSE [id number] 17:52:54 Test Item Value Reference Range Interpretation Comments POC-GLUCOSE METER 194 mg/dL 70-110 H : [facility] ([employer]) (test code = [facility], 1538) 18163: Do All Operator/Techni pawan ID = [id number] for Leif [place] Tissue [id number] 17:29:33 Test Item Value Reference Range Interpretation Comments Case Report (test code Surgical Pathology = 104) Report Case: [id number] Authorizing Provider: Natasha Chappell MD Collected: 07/01/2023 08:14 AM Ordering Location: [address] Received: 07/02/2023 09:26 AM Service Pathologist: Claribel Ziegler MD Specimen: Biopsy, Esophagus, bx DIAGNOSIS (test code = [id number] 3220) FuZzEwMzNcZnRuYmpcdWMx IHtccnRmMVxlcGljMTAyMD kfHI2lbYnzhEf8pKljIUFp zbS0eIWaWAigt8xeSFR3p4 gpdojlOCAtNGadDy3aeRHv wAblIxIfXYYvEFo1nH70BW NyqF9zoJZdUDz9EDYblRUw bcBxLaGnDTGnzRGwtBX9OK GgER9kqkinRQroNLwfGVTm flH8OIVbpDPxM0GmNGRbKO 4fjdzwLSV0KPqvCBUrNEB1 EdErPADeb1Uriqb3YsOezO FyZFxwbGFpblxmczIwIEVz q9VeOLq3wafeoi3ogQsuMR CayA5iy2q1SNHezcy2COVm XBIFwCJqcV68gsUnwYUpe6 Vco8u4jAFybpQbzBomeIJc L1XqrHMdBXOuj7shY4mkNA Eauf6miKRweAB3TWUsgtr0 LOFlYNGZB9AsrGFvMQZ1lq hoUPE9nLFizYOjr6LfSNwf tTtxiz6jcD99YXT6aZ2adK WrVTGcpWdmp0rsZW9cRVF5 o8IxLNKsBRhcETLaxGDqsL iekfDlOBdio5WpUIcvLMDm YA7qaYqaGPSdPQ1eXMHuQ9 imeX6ewcb5ShJbXNQyQwL0 RXQanbU9Aty1KPIpFVloo0 fmp9CbSLKmIUg2pLeeAlPg ZXVhp3bzabNaJaCaZYJlIR AeFIFezRLbU090y7adp8ie mjHklCC7IIAhNNC1MUcxqn QytqZ7DNfkzOCjVbY0TNoi tlVpKSzgqbYcofJbFlr2FW WhQ205NOX2dIvfh7zwMSA8 QQUuNWPnEiVkGo1mnIXvX5 76SLMgGTVPIRNnnLy4ZEEc xzMaygKduZTVd979Q690a6 ydEPTewlWclEiGklomz9xf J224ANTzlHDdtsVyUiYgCX DxiSSktRW4FSNjIK3othvf DYpkXWanTYSddzR7IWKcaF DvY8CxCBKoLX0egxxjSVB6 IZrcJZAkAZB7OrQtLRXwg1 Vynck1DaRmmy0nsk71RNP0 c8LtpBumTVK6JNT2UgPvSi 1oaQXfYPXvRB5pChTozOEx ZAYzwz13nEyqMAhuGMT8SH CovzDxo1Pvy4lzTjHlvcUv O4ojO8VbZNFqFTVjDQJxJq UsosJzq6Wxy4BdgDSavEb6 x3hbPGNvNULkuTppy3vkUJ G8ESQeuJXtM7vnjQ7eNHHg TY8rnxnve6hlYSbrOHdtUW GslPL0ngA0FXOlaWIoA8Nl oB1vCBDiTMnxTOOffvj2Td HbMt4kqMTxwWhxHJujTzui YWdlXHBnbmNvbnRccGduZG VjXHBsYWluXHBsYWluXGYw XGZzMjRccWxcbGFuZzEwMz NcaGljaFxmMVxkYmNoXGYx GBljI6bmGpIoEwIcVhb1TG XorGZqKCFeFpc8PMSmvKVe HSCKfEvvvD5yLNNzpZzarT 1olIM4IPQfncUaoLFExZ0a QKXQfL7tKlC0MFNnJnj9HS M6XbCwaXZodO9= COMMENT (test code = o7apwJAwXMWwqYMlWJZpZ9 3352) gzfmWxPDGnnZBnJ3Uqdaku NMobNT0dZC9zyWhjgPBfiV TlRMWvSoDxy6swh343qAJv c9maUSREsicnrNs3xUseL1 8ck6X9GyenE96gkIGvYES2 XRRpELTvxHRdLOYuWBK4BK HupFLlV6gqDHUxFI7beqkw NHleRPtjHBPrqWA0EIMkcD ZiB1LsQQOxYOwaVUPfnrd5 XhDgUy9opXPwwFnqNYuhVP JkXHBsYWluXGZzMjAgVGhl IDNcLQ1dC77deGBpoaWie6 L1AOyrsqTwDHHoDPjzYI0q DZfvqtOrDGEsS3Jcv12zMW itwdAxZYtosTedNCXelJ8d o5OztO8ckZY7pUIaEJezG1 2vp7qcHnujTRW5 CPT Code(s) (test code s3woxYBoGVBzuMYyWTTmP3 = 5558) atksAoUOTlxNYrE3Fgalmt CIepQK5iDS5vaOsuaGAqeS VkIXJwMbEof5dir337qUXg k4vgZQIRggznyOe7tXtyD6 8tf2C0DpxuI87hkTWnZVC0 ZYWwCHPazJUpVQHvXBD7AX ImbIQjI0zdYIGoRJ0zatib HMpnIXyjLRYcpVG0EIZatQ KqT5SfNFUpWKwzZXGvxth1 PwImIr3ykYErgCvvSFqsIY JkXHBsYWluXGZzMjAgODgz MDVccGFyfQ== CLINICAL HISTORY (test g8xyrRTzMYBwvZDhFUFlH7 code = 3357) oyqiUfVENacEVwY4Bertdx IZvbEK3aUE8jjOuloCEhcP FuNHKvLjBmd6kue422oWKr l3ftJQWByihjoAq6sBgxF3 9ro3G6WkvyB91nlQClHUH3 RGZjMOIscSHhREObHCU0IR GzmXFeB0xoLNMqKW2fhdyz OOdzBFfaYSPvhVW6LXYelM VwV8JjCTEsEFzqFLYtpql7 MjVeCo3fmJTgtSoxORkbHS JkXHBsYWluXGZzMjAgSGVt YXRlbWVzaXNccGFyfQ== GROSS DESCRIPTION (test j1gazXUxFTSjrUUXHATmPV code = [id number]) LtRB0mgVknwDl0lOvaZJKt ziL6qWKxPIqeu3osAUY8r3 qnvaEFCeplEBMoGW6eQNna RJViUH5pUnCcZYGuGqEcEQ BhcGVydzEyMjQwXHBhcGVy dIV2GMFeEF2bysjtKTgbKG xbKICjjuD5GKSkzFNnC1Zv BGOtYI0xhkbrLLE2CDRHPh cdXo1rmNDeaDmeLdLqNmQt YXJzZXQwXGZuaWwgQXJpYW h3mK5MFnolD35up6H9Phd8 ADKaEMDvJ3MmYP7lGHGnsO IfH22WFglrVKM3TAJREydb DwodqZtnn8CccSYvWQWrKK xcaWQgNTEwMDAgXFxkYiBP NtTpEyOtEPQaRmR6IVXkCF z6EHbgEfSCAYU3CRS5LIDc QOs6WXtbFQxtuHRqTNRsEJ CfAUEtNKdbpwZ3s7ptLRAu vMZyVEO8CErxk7jtRWtcGB N1RRNbZwLlHSOfSG8FXuEw XGC0NII9PIu1NoU7NVc0EW BPVlMgIiAgMzczMjkwMTgi ZFm6QDu4LLdKPdP2ZizlLq hxXLYeFBE5TQWiNQz3FVNu XFxzcyAzIFxcZmwgXFxuY3 1ccGFyZCANClxwbGFpblxm pqNoKUIfIEXqb7IdpNiwLQ SxgFwaF7NsQHZtooACCsbz WQLvCX0OSSCjMXzvWXGeSb UowHUcE4mdJFOoI27pk1ME m1IrBW2HDIp5mtYwcmxarR 2dJLJafrMeKRpoO6AxICZg LjFuRdAjUNj2POGvyE9qNj 9zpFFqsD5ofDNuLOshMVG9 oGKeZDFtCIRrPDVeFH51IQ dCNHMgbmFtZSwgbWVkaWNh bCByZWNvcmQgbnVtYmVyIG BcHHBvyLiaIxJzMTp7P5Cm x1WhJSl7maDjqUUdDCYbMz QvaNOxSnXtlNFxVuThD13i nTEtVKMmIsOqnGlrx6IeOV BaYEkqEG60LGX6hKikwSCe aqWacLEafSC5SMLhrT3soA 61axJmikQMBI5ttIVgZZ3H XHBhciANClxzYTMwXGVwaW NEs2ExVHYMTfoeZdYrHbCr OyDJuSvrbiHVqor8PSccNA MsIFBBLCBIVCAoQVNDUCkN SuwyhNhoSjLdhWSsTlY9NP RvnAKvEOP9XW4irLazBWXa L3EqZ6LwulB4SHMhfhQKTj hkPEBdPJ4IaX== MICROSCOPIC DESCRIPTION s4ssqCGuNUDhwAFsYGDjI3 (test code = 3371) eocjUbBDRdnINlU8Cawkss NIvtFO3xYF2ygHgrqHLvnY ZxFFPhDwRoz5pct371wDSj d2hsPSXVyteiwZi3xAkiW0 1jt7B8DbwmX50mwKMuDSU4 DLInSXZpkESsADTvUCI9FE BqkXRnW4yjKWWdHP6ooxch QKunYEwuEUPoyBI5KQEgvH DpA3LaZSCeRPmfOFQpztm0 GpUhWz9cmMOtlUlsURxyKC JkXHBsYWluXGZzMjAgUGVy As0tvRVlWAMqaf5= Gross assessment was [facility] performed at (test [facility], = 2777) Department of Pathology, [address] [place] [id number], Technical component was [facility] performed at ([facility], = 2777) Department of Pathology, [address] [place] [phone], Professional component [facility] was performed at ([facility], code = 2779) Department of Pathology, [address] [place] [id number], [id number] 17:29:33 Test Item Value Reference Range Interpretation Comments Case Report (test code Surgical Pathology = 104) Report Case: [id number] Authorizing Provider: Natasha Chappell MD Collected: 07/01/2023 08:14 AM Ordering Location: [address] Received: 07/02/2023 09:26 AM Service Pathologist: Claribel Ziegler MD Specimen: Biopsy, Esophagus, bx DIAGNOSIS (test code = [id number]) FuZzEwMzNcZnRuYmpcdWMx IHtccnRmMVxlcGljMTAyMD gtUN0wtFldfKo0pJgwEQYu iaK6pIZtSSfci8gdYMO8z0 yqpfimZJDyTFubPm8tuXOy kWcjShZrFTQiSBb8eA23KN VozW7woRYuINd3IYPftJGb hyEqBsEiJVDkrDKiiMM6GC FlPU7wtdqgTXhsEGasNJOw edZ8SCSqyFDrN6YzJXZjHR 8bhblyXXY3QTktVJRzTCE6 XqWzRQLep4Zxdtn4AyRpqE FyZFxwbGFpblxmczIwIEVz u3UaDPc6wbjemf0zdGoiDW NnlC1lt2x6HITpjiy0UWTw NEVRoREenU36elYbwJZzx6 Nki7s3eCEcprKkqSdheISk R6QkvRPnLEUoo1vsN0arWD Bkmi5wqSDmtOB8PKDbrej4 QJKcSBQUS7CoyPTsGZC6zr zkJLM5uSEgyTGgn1WvOCgx fWvytg7ztW79OXV4vO1hnU XzMOHatNsia2jiSD7hGAK3 m6IfQJWmQLdpLODgqOMmiH tjqiQmGRooo7LvJFjcMQZg RJ9zxUtuTGMkXX9qFJCzE6 nmzA8vuhy2PdXzKYYjXsL8 QJVossY6Gkw6PIQsXZxzw9 apv4UjMOCgILj3yIzhHiFd SJQkm9oxzeEzSxVqELKbBK ToXPZulYFdD858b5okj7hu quQimHS4IAIeQTL0ROycqa LyagH7NXgnlIUcJsJ9CQtv ujWhDCwsttIpylZrXjl3DY QeP984ZFP2oMija1fcUIB7 BTIuLQNjJmQtRk1aoLToE0 61MVInSTDHDZTudEo7KAIf byZluvUijPNMd108W964z7 jgWLVvicNihQxTcixqn3ig Z960LXIqlHFtpwAkUlMyZZ IfvMZuxOA7EKCdMM2omfco MSryBQrvRNQimnF4AXNjfD QcM2OgTOHfCX5oaevfLDS6 WIwyIUJfRIZ0QwPjDSYhp0 Fegui7MdGvqi6ain92ISA3 h5JklMxbFYA8JWY2IeVaIj 0ekMZkHQJlGP6nFsOaoQIk HLPvgs03yUdeUBccSBY1SF WcwdLru7Kps9faSoBsywSv G6luT4BsFGPgKZXtOOLmCx LxaoVrb9Sbv0OxkIGfbVq3 b1xwEOGiOJTseWfiq3ujMK J0LXSlrNDzY7ldxP8uCGQz SU1haosdm6iuMGqyJJugXV VowPC5rkP5JFQjbXLjZ7Jn bZ6zGJQpBFgwGLIikcy8Sx UhHw1ceNLfhGjvHOheSbxq YWdlXHBnbmNvbnRccGduZG VjXHBsYWluXHBsYWluXGYw XGZzMjRccWxcbGFuZzEwMz NcaGljaFxmMVxkYmNoXGYx GIdgL4xxLcIwQaKcCyz6AU CjaJLqTWIkWxc0QYNbaEKe EDAQrSaskH5zQPJxgIeuwR 2ljKR0AXEajlSuoHAEfD1j GPZUxJ2oHoQ1KIKpPfs4FX D1YoMwuOTuwO5= COMMENT (test code = m2atuBGtMCBreSMiXTGaQ9 3359) lycfIhKSEevFJbM6Xzdquv KSdrUL5aQE2ydIecsFZeiC QxUWRkFlXck3olt382aDRw u9ldHDVKladjwAu9gCemV4 0yo3N5GwipE47cjZGoQHE8 QCOfEZJsbPVpSFIyHGF8LD OieTRoI4wjAWDvJO4rexzl XJxcHNqeVRDmmPP4ZREnbS UoP2GuGKBoRKxpFVKkspp2 KwNmZl5huIYlhRwtPGwkCV JkXHBsYWluXGZzMjAgVGhl ROPkLW1mG14djHYfbkPwe1 W6LZashdMvVTLiSTxlDB1y KFlrkbGvRTWsD6Kca72qGF qyhiSjZKdtnDkkTARkhQ5b r3XsaK6yoNU1wZCkHYfrA3 2gi0rzYbodYFF3 CPT Code(s) (test code i8vvzFVeTEJjzPLqMDWyD2 = 3357) ymprOoQZVteBUqO5Evrtkl SOquMJ2rXP5pxAipwSRybB KsVKEeVpOou6ihl316pLZc l7hzPZHWfyixkBs9hAfjJ7 0me3O5FzdpD49tpEHgXJO7 CZUjZJXmtAKbALJtZUP8NF YyvGJkZ5uvUSKeVW9jynci ZLopJHvnENJtaZR3AGAqeH WrZ0PpMFCrHZurGEHnfyy3 UaOoJw4yvSZrgCdiEKdbFS JkXHBsYWluXGZzMjAgODgz MDVccGFyfQ== CLINICAL HISTORY (test n9iqiOVlPEGxvOZaMZAkG5 code = 3356) jilbCdFPLieXXaQ4Dmykht PYvgXX4yJF2hwHdsuQOhxC UgSMWvCoUhj9oct537yFDw w7llNFHZmuapnQu4oIjtM0 2ih2D4DqurG91laNTgOCD8 IAFrEJLnzUQtJTYbNBA7BM PigSQwW2rjOHHkFE9jjfph MHqgJZyuAWQemMC4BVWqzO VlZ2AiLTTiUXwzADQfydn8 NcAqUj1xrMNoxIoyFRgpHD JkXHBsYWluXGZzMjAgSGVt YXRlbWVzaXNccGFyfQ== GROSS DESCRIPTION (test d8ztpRGgVHNlqKXYEKYeRA code = [id number]) GfZC5fyQzuwCs9pRptLGKe pkK1aRHsROexe8oaVOK3w2 gyshZMQpzcWZKoEU8hGZan BABmIK4rCqLaNGTaYbCsST BhcGVydzEyMjQwXHBhcGVy mPZ6GAEkRI5hgtukNQcvRH zmFQZgqyQ9BBPiuGEvQ3Mq MJYsCT2lokozLNQ3OSXLHx dhCb6szMHdhKgzEaVkFtHr YXJzZXQwXGZuaWwgQXJpYW r7hC7ZSffwC03od0C7Ncw1 TURbEZZfB6LsSN9uCBGcoZ HkR81HYryhLWN5PEKLLxde DjibxKzhl2AhdGOxKSCeSI xcaWQgNTEwMDAgXFxkYiBP StGiEfNvBBVwOsM1UKBmPT h1JJjqFiGCTZB6VQG5GEAt ZRu1XLxcMPjotXZhSRWcNI EwZVPzCGmqdyB7n5sfRAYr iFTuIPN8HKvrm8uxZAhkON C5HYZcIbBaTOTmTQ0NXtUe JRW8EMD5OHh4LpD0KDx0XA BPVlMgIiAgMzczMjkwMTgi DTv0AXx5OLiAOgH7ZhfoYh aaECAsPJX0JXIvICj6NCCu XFxzcyAzIFxcZmwgXFxuY3 1ccGFyZCANClxwbGFpblxm fbOzOOQtGQXxs9FqaDuzDY JwvWyjG2LsYVUicyMNVlmd LBSwNN2ZCFSxFUyrZVGjRn ArfUBnG1waIHWlN85ek2AF f3RhDX1AOFg3nwDnkacvtK 7kNEGzrzNyKVctF0AjMDIa PtAmJvIeCLs8DGFsxS3rFw 5auRBnuE3ngZBeTRtlOFX8 yRIlXKRbZGXuIWOdLI95XI dCNHMgbmFtZSwgbWVkaWNh bCByZWNvcmQgbnVtYmVyIG SjSCCiuSdbRaDrQVl4K5Wq b0OkCRj3irWjuIIsJNMiKa OrxFZtQwYliHFtXzCkG01d nATuGXUzZgXgfGpvv6VsQB JgONqvWE60QPI3eYztyJGw tzQieLZokCO7SALkmF2hyN 87flQonuXCDR5ubPFcFE7Y XHBhciANClxzYTMwXGVwaW ZMd3IlHZHYVybgRoUiXcZm AoDEoJlfpiSGbcn7TCuaNP MsIFBBLCBIVCAoQVNDUCkN IlalrXtmVpTcrWVhMfQ6OL KhkETnBOM7PC8rtCryPLAl L8NkC3RwuqU1ESYmkoUXZx hiRIApOY5EcZ== MICROSCOPIC DESCRIPTION k2qovJXqXFMqpXToOVTaE2 (test code = 3371) bhbvVrMZKczBNxE4Xobiid EIiuVY7mSR0tpNyhjOCkzS DiSGRqZsZyc5wfv428uXTi e6ovPRZHiqjrsTi7lKtcE0 7vs8E4IrhrJ90dvYBmMEH9 LQSgJEVskWBfNGNbNEJ3OL BaxTIoB8gqHITbFR5ssvye GWovPNlpKMOvcVK1JLThpD JjE4DcTLXtXGpvUUPnevc4 YdFwVd0sqOKmqObaSXizPI JkXHBsYWluXGZzMjAgUGVy Ay1wsGIeBUIbuu2= Gross assessment was [facility] performed at ([facility], = 2777) Department of Pathology, [address] [place] [address], Technical component was [facility] performed at ([facility], = 0228) Department of Pathology, [address] [place] [address], Professional component [facility] was performed at [facility] code = 2779) Department of Pathology, [address] [place] [address], [place] [address], [facility] [id number] 17:29:33 Test Item Value Reference Range Interpretation Comments Case Report (test code Surgical Pathology = 104) Report Case: [id number] Authorizing Provider: Natasha Chappell MD Collected: 07/01/2023 08:14 AM Ordering Location: [address] Received: 07/02/2023 09:26 AM Service Pathologist: Claribel Ziegler MD Specimen: Biopsy, Esophagus, bx DIAGNOSIS (test code = d1lxgQJuXRMek7zhLBGbcR 3220) FuZzEwMzNcZnRuYmpcdWMx IHtccnRmMVxlcGljMTAyMD bnKV3jcXvjvGw0hKccDKEt dsK5zNCzCZerc8ftPFI1m0 tulfweQMNcXUgmJf5aqGGs dAhuDzJbEXIzXIa9mG31MI GrnZ7zoXXtEGv1FQPqwYCe qdXoEpPqFHJhtQUdwYW6EL HuZS1hkoxvCGdmJNydQNBf hkU7MFZofNXwE7QqNZOwIT 4exaujWAT6ZYpuGWJnEJD2 YtMfYLUfb3Yrhfv6YxXkqT FyZFxwbGFpblxmczIwIEVz e5RjKQk9rcfkjb9gkIbxBQ CojX6vz6s0EJMvgjz4XQGb DQRHrZAuxW60dmGtsREfm2 Gct3c0xUQkkgCosYrkbRTp Z3QqxXDeNZVjd5wgB0hvXB Rqcx7lvBCgdWP2ABKbuwa7 OZVgDQNCW6AlvGOaSXW6fl sgOBT7bPSloJOtb9KkIBwn kAeydj0thX46DSB0pF3hiA RpIOAwaAnbg6jaVH7wIZI6 h6MqCUQhZIfiMJSwvNExrN tjmfEmWXngi9HlYWeyLBSc MW1kqJnmKIXkDS6mSLCaZ9 ivvK7ihte4XzQuXPYxRaQ9 HVFiweW8Vqz1LUJkCWmkh6 lpk5UbDWQhDIu3mRsrPmPf HIJdq1simpOsNpBoNNYfGZ ZfIZCtoBJgL303z2ciu4tc guOkgFO4KKWuYBC3SQonhu EwvoV6QRzfhCMtZbT0CLnu ggGoVMxhymBdgjRcZqw6XM IeS482ZNC9qQbzi3tdRJT0 LOAoWIMmTqXwTp8qyXMkF1 30ORGdEHXDANXqgKp3GGEr smXbpsAttLEXx596F728h2 osRIEuoxLhvVuOuyaks1iq P584FRAtsFJyilLxMiBbKZ CeuPLwuCU2IOSpER7zmreh HBxtZZsoGKHkqvB0PDMtsQ EfE7YoLHHlSE2iuptcSME3 BKohBSEpPAP6MmKrQQRxe3 Wdjxh6WqEywl1piy21RVB8 m6WfaPdaBAL9RSU6QcQyLp 2jaXMuKHBkMW3sHwNgrGCb WQKpvx25lItkTNiwXXD3EZ IwojKof6Vha6aoAyGchaDo X7vbI8RsWSUjHGRiNWSdCl YiybMlk1Rjn2EpzGWpfNk6 s2wmSCQnKRMeiCkxy0vnSX Q2WUHteJVlA4spkT0mBNTs DN0pwpwcx3ptCTtbYJdbWE JvoIS7etY9CFVmoLKrC6Ar oN3uMBAbUEnjBOEukmd7Ou BxCn4ggZTogCnxEJdoBtur YWdlXHBnbmNvbnRccGduZG VjXHBsYWluXHBsYWluXGYw XGZzMjRccWxcbGFuZzEwMz NcaGljaFxmMVxkYmNoXGYx NNjqC5wpCxCsNoBxJyp1SC QtvMVcJDTfEyt1OJDrsXYp JMENoPvfkR5aVYDdfMuscY 3szMS5EBSpxeYlmLADsC2l QZEAhT1uJvG3CDYzYpr4ZR L9BtKibJOfdE6= COMMENT (test code = m6vyzNVeVHQrpEPmZKAyO0 1969) dimjIgGHVntDGxH3Jzmdbw KYefQS6gIE3tnTxgxATkgI RkYOWyWtEvd0oog395pRZc t0cmLPTCqxgbqGi3xSulQ8 5ko5E3HthyU11mnRHfAPB9 PACvZZAirYQgSMBmWUR4MI XkuJNnA4hwYMCsMF1jqqgq DRdnZVjqSZOehVO0TLFtlD PxR0VgQZYwJUktVFIzfhk6 PlJgHj5heTMdoRhkRDwgWD JkXHBsYWluXGZzMjAgVGhl IROgXD2pH82voRYihzOyb2 V3OWlyhqUtSYIdMMncUO0v RQrxagZeVHBtS0Vjr70iPV nohqWuVJxtcHpzJQViqP7d u3QcgY0zcQT0dTQfNFpaX4 2oz1fmBivxTMN1 CPT Code(s) (test code m2wjwDXeQSZecUMaWCRqT8 = 6317) pnkePuSPUguTGxA8Iaywzw FXbgDE0hND4qyZiitEPutH RzKHQmOzMhq2krd104eDRb f8jcEENBmzgfaVd6bOgoT1 5uw6Y1AaeeX98idNXxZOX2 CKFlZSVrpMZnEWFdSMD3CK EgyNEdE3lgVBUrOH9afpes LDodABcvXASmeYV9QPPunM QtV0KzPQVgQCvlKDBbuhk8 MbOoKf3mbDAqwMnlCVluQF JkXHBsYWluXGZzMjAgODgz MDVccGFyfQ== CLINICAL HISTORY (test q9onzFBtMEFuhJFjMFQyL3 code = 3356) bcguRpBRXosAHiG6Cnhmvu PYujJZ7iGR4msTipcRTtqS KhZVJmYlFeg4nhb544sWPh d6rmBTUNbtgyuSf5cEkiJ9 2dm8M6VtvzP27btFRmKDB3 ACQqWKAkuNHyPNPtQAG6BI RdyIJmL2ecFHRyVQ9elihe HRpaLHzrQLXqmFR9IEBazJ TxL0VpXODhFOqtMBCcujf1 JgYiRz4ynAPjeBptBTglBD JkXHBsYWluXGZzMjAgSGVt YXRlbWVzaXNccGFyfQ== GROSS DESCRIPTION (test h2mxaNRyWHLloTVRBMNbEH code = 3938264228) CqCM8gzNgglHs6qBokKPRd fjI7gJApZMser5ukQSN4u3 xyhmBRFyygTPAqBL3tXBif PSHfAP2rRuAuZYXyBqUoKZ BhcGVydzEyMjQwXHBhcGVy iLQ4JIItOJ2kaghdNNclAL hrDCKkipI9ILJohTTfN8Ny WXUtEN6zgvyoZHM0UZOFSl hqJi1huSBlrVoeHtFcLzVa YXJzZXQwXGZuaWwgQXJpYW u4fA0XMtmhJ98gn8O1Fao8 LYEqMZWlO8VbLD2eSOXixA DwM54HAugkOBC6SUMHMazn DxhehWfdu2QbmDDbIRCgLD xcaWQgNTEwMDAgXFxkYiBP XoPsHfGoYMJeCrX3ACLzQF l4DQlcJgXAWRB0VZE4EJAh NRj7VBumOVsfiLVhSBLzBH RuWOUsRQelmhZ1p1iuWVIu fJFtHPP3MFcaw7drZThyRN G3TJJfQwCiCLBhWO2ZQcIg CJQ8PLS0VBq6CqO2NYh4KE BPVlMgIiAgMzczMjkwMTgi OHh4PGr7ECwOCwX0LjgjWl gjAMLeIKK6NHQaXVj7JHUz XFxzcyAzIFxcZmwgXFxuY3 1ccGFyZCANClxwbGFpblxm kuXxRKFjTPIsm7MtqTkbKQ UynMizM7PyJHTjraFEBnnv KCDwAG0QDVGjEJsnBZPfUy OxfLZaL0amWCJeV48fz5JD q3SjCD6YWNg7flShbmqpeA 3nLSSxgdQbNDnsA8BoXRPm BaKaHgQwVRp2KHPnvB8sLe 3mfVGhyD8vqEZmTXdzYSZ2 bVSeJTRpFOWvZFXjNB76WG dCNHMgbmFtZSwgbWVkaWNh bCByZWNvcmQgbnVtYmVyIG HoRNQhoQhxJcKgMJs7C5Jy d2PcRXi6bwNtoSOjAYFcNf LckKXmEqHtlNKkHlImZ99d aOGlMXBwPzLpzPclp3NnQD WsOGinYC00WXW6rEgllMIh vqZsrUEtfZV7BMBwtU5cqM 99tzSxrgYYUU9azFQvLJ4A XHBhciANClxzYTMwXGVwaW AHv0PcVKOSYwolSvKxKhMy IlGYtEwtwrZUuxx2ZEmaJZ MsIFBBLCBIVCAoQVNDUCkN HtydwKqhRqOxoONkXfY7OT AqcSKxJZQ1AL6dvAnsMDHp X1FiG7VwdoE3IONshkEKTe mxRLJvUT5TtT== MICROSCOPIC DESCRIPTION s9teuRCkENNonZWwGKMjY1 (test code = 3371) dnqnSbOSKeuVQtX6Bdqzgt TSzsYT0cOY5wvYlnkTErbI TuWXUjPjAfe8mrn456yRJi e7gyKBNDongkxDs6sIohK9 9ts3V2UhncT86aqMNtCPA0 UUDxFZNpwYJsGQYgNGS7ZU WvoMQyY8enZEBaHU3ucaij UYjjVTooLPOxvRS8WHGhzK TqP6XtTSGqHRgdRFAkbyn0 QqTpTg1wtEPfzNnuWShvWQ JkXHBsYWluXGZzMjAgUGVy Mu9knLIzISLhjq7= Gross assessment was [facility] performed at ([facility], = 8587) Department of Pathology, [address] [place] [address], Technical component was [facility] performed at ([facility], = 2162) Department of Pathology, [address] [place], [place] [address], Professional component [facility] was performed at ([facility], code = 2779) Department of Pathology, [address] [place], [place] [address], [facility] [id number] 17:29:33Surgical Pathology Report Case: [id number] Authorizing Provider: Natasha Chappell MD Collected: 07/01/2023 08:14 AM Ordering Location: [address] Received: 07/02/2023 09:26 AM Service Pathologist: Claribel Ziegler MD Specimen: Biopsy, Esophagus, bx Esophagus, nodule, biopsy: - Squamous mucosa with no significant pathologic abnormality - Scant gastric type mucosa with no intestinal metaplasia or dysplasia Signing Pathologist Direct Phone Line: [phone] signed by Claribel Ziegler MD on 07/03/2023 at 5:29 PMThe endoscopic report was reviewed. Level sections were examined to support the diagnosis.[id number]. Biopsy, EsophagusReceived in formalin labeled with the patient's name, medical record number and "esophagus" is a 0.2 x 0.1 x 0.1 cm kaplan soft tissue fragment, which is submitted in toto in A1.TOMMY Gomez, HT (ASC)PerformedUCSF Medical Center, Department of Pathology, [address] [place] [address], [facility], [facility] of [facility], [address] [place] [address], [facility], Department of Pathology, [address] [place] [address], BFUB-CoV2/Influenza A&B [id number] 15:57:44 Test Item Value Reference Interpretation Comments Range SARS-COV2/RT-PCR Negative Negative The SARS-Co V-2 (test code = target nucleic 26371-8) acids are not detected in thi s specimen. Negat edil results do not preclude SARS-C oV-2 infection and should not be u sed as the sole bas is for patient management decisions. Nega tive results must be combined with clinical observations, patient history , and epidemiolog ical information. A false negative result may occu r if a specimen is improperly collected, transported or handled. This S ARS CoV-2 test is a rapid, real-irais e RT-PCR test intended for e qualitative detection of nucleic acid fr om SARS-CoV-2 in a nasopharyngeal swab specimen [facility] from individual s suspected of COVID-19 by the ir healthcare provider. Influenza A RT-PCR Negative Negative The Flu A target (test code = [place] [address]-5) not detected in this specimen. Influenza B RT-PCR Negative Negative The Flu B target (test code = [place] [address]-8) not detected in this specimen. ALEXUS (test code = The presence of ALEXUS) SARS-CoV-2/FLU/RSV viral nucleic acids cannot rule out co-infections or disease caused by other viral or bacterial pathogens. As with any molecular test, mutations within the target regions of the Xpert Xpress SARS-CoV-2/Flu/RSV test could affect primer and/or probe binding resulting in failure to detect the presence of virus or the virus being detected less predictably. False negative results may occur if the virus is present at levels below the analytical limit of detection in this specimen. This Xpert Xpress SARS-CoV-2/Flu/RSV test is a rapid, real-time RT-PCR test intended for the qualitative detection of nucleic acid from Xpert Xpress SARS-CoV-2/Flu/RSV in a nasopharyngeal swab specimen collected from individuals suspected of Xpert Xpress SARS-CoV-2/Flu/RSV by their healthcare provider. Results from [facility] Xpert Xpress SARS-CoV-2/Flu/RSV test should be correlated with the clinical history, epidemiological data, and other data available to the clinician evaluating the patient. Viral nucleic acid may persist in vivo, independent of virus viability. Detection of analyte target(s) does not imply that the corresponding virus(es) are infectious or are the causative agents for clinical symptoms. This test has not been Food and Drug Administration (FDA) cleared or approved and has been authorized by FDA under an Emergency Use Authorization (EUA). This EUA will be effective until the declaration that circumstances exist justifying the authorization of the emergency use of in vitro diagnostic tests for detection and/or diagnosis of COVID-19 is terminated under Section 564(b)(2) of the Act or the EUA is revoked under Section 564(g) of the Act. Fact Sheet for Healthcare Providers:https://w [employer]Docu ments/Xpert%20Xpres s%20SARS%20CoV-2/Fa ct%20Sheets/302-390 2%34KTKI-BQR-1%20HE ALTHCARE%20PROVIDER S%20FACT%20SHEET.pd f Fact Sheet for Healthcare Patients:https://[employer]/Docum ents/Xpert%20Xpress %20SARS%20Cov-2/Fac t%20Sheets/302-3801 %25ZRFC-ZTD-2%20PAT IENT%20FACT%20SHEET .pdf Lab Interpretation Normal (test code = 38728-5) [facility]Influenza A&B [id number] 15:57:44 Test Item Value Reference Interpretation Comments Range SARS-COV2/RT-PCR Negative Negative The SARS-Co V-2 (test code = target nucleic 47747-2) acids are not detected in thi s specimen. Negat edil results do not preclude SARS-C oV-2 infection and should not be u sed as the sole bas is for patient management decisions. Nega tive results must be combined with clinical observations, patient history , and epidemiolog ical information. A false negative result may occu r if a specimen is improperly collected, transported or handled. This S ARS CoV-2 test is a rapid, real-irais e RT-PCR test intended for e qualitative detection of nucleic acid fr om SARS-CoV-2 in a nasopharyngeal swab specimen [facility] from individual s suspected of COVID-19 by the healthcare provider. Influenza A RT-PCR Negative Negative The Flu A target (test code = [place] [address]-0) not detected in this specimen. Influenza B RT-PCR Negative Negative The Flu B target (test code = [place] [address]-2) not detected in this specimen. ALEXUS (test code = The presence of ALEXUS) SARS-CoV-2/FLU/RSV viral nucleic acids cannot rule out co-infections or disease caused by other viral or bacterial pathogens. As with any molecular test, mutations within the target regions of the Xpert Xpress SARS-CoV-2/Flu/RSV test could affect primer and/or probe binding resulting in failure to detect the presence of virus or the virus being detected less predictably. False negative results may occur if the virus is present at levels below the analytical limit of detection in this specimen. This Xpert Xpress SARS-CoV-2/Flu/RSV test is a rapid, real-time RT-PCR test intended for the qualitative detection of nucleic acid from Xpert Xpress SARS-CoV-2/Flu/RSV in a nasopharyngeal swab specimen collected from individuals suspected of Xpert Xpress SARS-CoV-2/Flu/RSV by their healthcare provider. Results from [facility] Xpert Xpress SARS-CoV-2/Flu/RSV test should be correlated with the clinical history, epidemiological data, and other data available to the clinician evaluating the patient. Viral nucleic acid may persist in vivo, independent of virus viability. Detection of analyte target(s) does not imply that the corresponding virus(es) are infectious or are the causative agents for clinical symptoms. This test has not been Food and Drug Administration (FDA) cleared or approved and has been authorized by FDA under an Emergency Use Authorization (EUA). This EUA will be effective until the declaration that circumstances exist justifying the authorization of the emergency use of in vitro diagnostic tests for detection and/or diagnosis of COVID-19 is terminated under Section 564(b)(2) of the Act or the EUA is revoked under Section 564(g) of the Act. Fact Sheet for Healthcare Providers:https://w [employer]/Docu ments/Xpert%20Xpres s%20SARS%20CoV-2/Fa ct%20Sheets/302-390 2%75HEWT-SHF-3%20HE ALTHCARE%20PROVIDER S%20FACT%20SHEET.pd f Fact Sheet for Healthcare Patients:https://[employer]/Docum ents/Xpert%20Xpress %20SARS%20Cov-2/Fac t%20Sheets/302-3801 %95GGNA-OHH-5%20PAT IENT%20FACT%20SHEET .pdf Lab Interpretation Normal (test code = 95616-6) [facility]B [id number] 15:57:44 Test Item Value Reference Interpretation Comments Range SARS-COV2/RT-PCR Negative Negative The SARS-Co V-2 (test code = target nucleic 25638-4) acids are not detected in thi s specimen. Negat edil results do not preclude SARS-C oV-2 infection and should not be u sed as the sole bas is for patient management decisions. Nega tive results must be combined with clinical observations, patient history , and epidemiolog ical information. A false negative result may occu r if a specimen is improperly collected, transported or handled. This S ARS CoV-2 test is a rapid, real-irais e RT-PCR test intended for th e qualitative detection of nucleic acid fr om SARS-CoV-2 in a nasopharyngeal swab specimen colle delaney from individual s suspected of COVID-19 by the ir healthcare provider. Influenza A RT-PCR Negative Negative The Flu A target (test code = [place] [address]-5) not detected in this specimen. Influenza B RT-PCR Negative Negative The Flu B target (test code = [place] [address]-3) not detected in this specimen. ALEXUS (test code = The presence of ALEXUS) SARS-CoV-2/FLU/RSV viral nucleic acids cannot rule out co-infections or disease caused by other viral or bacterial pathogens. As with any molecular test, mutations within the target regions of the Xpert Xpress SARS-CoV-2/Flu/RSV test could affect primer and/or probe binding resulting in failure to detect the presence of virus or the virus being detected less predictably. False negative results may occur if the virus is present at levels below the analytical limit of detection in this specimen. This Xpert Xpress SARS-CoV-2/Flu/RSV test is a rapid, real-time RT-PCR test intended for the qualitative detection of nucleic acid from Xpert Xpress SARS-CoV-2/Flu/RSV in a nasopharyngeal swab specimen collected from individuals suspected of Xpert Xpress SARS-CoV-2/Flu/RSV by their healthcare provider. Results from [facility] Xpert Xpress SARS-CoV-2/Flu/RSV test should be correlated with the clinical history, epidemiological data, and other data available to the clinician evaluating the patient. Viral nucleic acid may persist in vivo, independent of virus viability. Detection of analyte target(s) does not imply that the corresponding virus(es) are infectious or are the causative agents for clinical symptoms. This test has not been Food and Drug Administration (FDA) cleared or approved and has been authorized by FDA under an Emergency Use Authorization (EUA). This EUA will be effective until the declaration that circumstances exist justifying the authorization of the emergency use of in vitro diagnostic tests for detection and/or diagnosis of COVID-19 is terminated under Section 564(b)(2) of the Act or the EUA is revoked under Section 564(g) of the Act. Fact Sheet for Healthcare Providers:https://w [employer]/Docu ments/Xpert%20Xpres s%20SARS%20CoV-2/Fa ct%20Sheets/302-390 2%73PGDV-OHX-3%20HE ALTHCARE%20PROVIDER S%20FACT%20SHEET.pd f Fact Sheet for Healthcare Patients:https://ww [employer]/Docum ents/Xpert%20Xpress %20SARS%20Cov-2/Fac t%20Sheets/302-3801 %43JMTY-CCU-7%20PAT IENT%20FACT%20SHEET .pdf Lab Interpretation Normal (test code = 13120-8) [facility] A&B [id number] 15:57:44 Test Item Value Reference Range Interpretation Comments SARS-COV2/RT-PCR Negative Negative The SARS-Co V-2 target (test code = nucleic acids a re not 9369112) detected in thi s specimen. Negat edil results do not preclude SARS-CoV-2 infe ction and should not be u sed as the sole basis for patient management deci sions. Negative result s must be combined with c linical observations, p atient history, and epidemiological information. A false negative result may occur if a specimen i s improperly meenu ected, transported or handled. This SARS CoV-2 test is a rapid, real-irais e RT-PCR test intended f or the qualitative det ection of nucleic acid fr om SARS-CoV-2 in a nasopharyngeal swab specimen collec delaney from individuals stan pected of COVID-19 by the [facility] ider. INFLUENZA A RT-PCR Negative Negative The Flu A target nucleic (test code = acids are not d etected in 19101007) this specimen. INFLUENZA B RT-PCR Negative Negative The Flu B target nucleic (test code = acids are not d etected in 19101008) this specimen. The presence of SARS-CoV-2/FLU/RSV viral nucleic acids cannot rule out co- infections or disease caused by other viral or bacterial pathogens. As with any molecular test, mutations within the target regions of the Xpert Xpress SARS-CoV-2/Flu/RSV test could affect primer and/or probe binding resulting in failure to detect the presence of virus or the virus being detected less predictably. False negative results may occur if the virus is present at levels below the analytical limit of detection in thisspecimen.This Xpert Xpress SARS-CoV-2/Flu/RSV test is a rapid, real-time RT-PCR test intended for the qualitative detection of nucleic acid from Xpert Xpress SARS-CoV-2/Flu/RSV in a nasopharyngeal swabspecimen collected from individuals suspected of Xpert Xpress SARS-CoV-2/Flu/RSV by their healthcareprovider. Results from [facility] Xpert Xpress SARS-CoV-2/Flu/RSV test should be correlated with the clinical history, epidemiological data, and other data available to the clinician evaluating the patient. Viral nucleic acid may persist in vivo, independent of virus viability. Detection of analyte target(s)does not imply that the corresponding virus(es) are infectious or are the causative agents for clinical symptoms.This test has not been Food and Drug Administration (FDA) cleared or approved and has been authorized by FDA under an Emergency Use Authorization (EUA). This EUA will be effective until thedeclaration that circumstances exist justifying the authorization of the emergency use of in vitro diagnostic tests for detection and/or diagnosis of COVID-19 is terminated under Section 564(b)(2) of the Act or the EUA is revoked under Section 564(g) of the Act.Fact Sheet for Healthcare Providers:https ://www.[employer]Documents/Xpert%20Xpress%20SARS%20CoV-2/Fact%20Sheets/302-390 2%31ZLAZ-HPJ-5%20HEALTHCARE%20PROVIDERS%20FACT%20SHEET.pdfFact Sheet for Healthcare Patients:https://www.[employer]Docum ents/Xpert%20Xpress%20SARS%20Cov-2/Fact%20Sheets/[id number]%08EYSY-NAF-0%20PATIENT %20FACT%20SHEET.pdfPOCT-GLUCOSE [id number] 11:43:12 Test Item Value Reference Range Interpretation Comments POC-GLUCOSE METER 274 mg/dL 70-110 H : TESTED A T [facility] 6720 (NeuroNation.de) (test code = [place], [facility]) [address]: Do All Operator/Techni pawan ID = [id number] for Faizan ckerLeif POCT-GLUCOSE [id number] 08:43:13 Test Item Value Reference Range Interpretation Comments POC-GLUCOSE METER 220 mg/dL 70-110 H : TESTED A T [facility] 6720 (BEAKER) (test code = [facility], [facility]) 133[address]: Do All Operator/Techni pawan ID = [id number] for Faizan cker, Monikaie POCT-GLUCOSE [id number] 21:23:53 Test Item Value Reference Range Interpretation Comments POC-GLUCOSE METER 240 mg/dL 70-110 H : TESTED A T [facility] 6720 (BEAKER) (test code = [facility], [facility]) [address]: Do All Operator/Techni pawan ID = [id number] for [place] RBAJAL, ARIEL POCT-GLUCOSE [id number] 17:15:27 Test Item Value Reference Range Interpretation Comments POC-GLUCOSE METER 184 mg/dL 70-110 H : TESTED A T [facility] 6720 (BEAKER) (test code = [facility], [facility]) 289[address]: Do All Operator/Techni pawan ID = [id number] for Co ok, Marilyn POCT-GLUCOSE [id number] 11:20:48 Test Item Value Reference Range Interpretation Comments POC-GLUCOSE METER 175 mg/dL 70-110 H : TESTED A T [facility] 6720 (BEAKER) (test code = [facility], [facility]) [address]: Do All Operator/Techni pawan ID = [id number] for Co ok, Marilyn POCT-GLUCOSE [id number] 08:27:03 Test Item Value Reference Range Interpretation Comments POC-GLUCOSE METER 184 mg/dL 70-110 H : TESTED A T [facility] 6720 (BEAKER) (test code = [facility], [facility]) 75434: Do All Operator/Techni pawan ID = [id number] for Co ok, Marilyn Urinalysis w/ [id number] 05:56:00 Test Item Value Reference Range Interpretation Comments Color, UA (test code Yellow = 5778-6) Clarity, UA (test Hazy code = 5767-9) Specific [place], UA 1.027 1.001-1.035 (test code = 5811-5) pH, UA (test code = 7.0 5.0-8.0 5803-2) Protein, UA (test 20 mg/dL Negative A code = 43288-5) Glucose, UA (test Negative Negative code = 365) Ketones, UA (test Negative Negative code = 2514-8) Bilirubin, UA (test Negative Negative code = 36904-2) Blood, UA (test code Negative Negative = 73074-6) Nitrite, UA (test Negative Negative code = 5802-4) Leukocytes, UA (test Moderate Negative A code = 5799-2) Urobilinogen, UA 0.2-1.0 H (test code = 80551-4) RBC, UA (test code = 2 See_Comment [Autom ated 15113-2) message] The system which generated this result transmit delaney reference range : /HPF. The reference range was not used to interpret this result as normal/abnormal . WBC, UA (test code = 31 See_Comment [Autom ated 5821-4) message] The system which generated this result transmit delaney reference range : /HPF. The reference range was not used to interpret this result as normal/abnormal . Bacteria, UA (test Rare code = 96216-9) Squam Epithel, UA 3 See_Comment [Automate d (test code = 26370-1) messag e] The system which generated this result transmit delaney reference range : /HPF. The reference range was not used to interpret this result as normal/abnormal . Specimen Source (test Urine, Voided code = 2795) ALEXUS (test code = ALEXUS) Do All Operator ID - [auto]Do All Operator ID - tech Lab Interpretation Abnormal (test code = 41624-7) [facility] [id number] 05:56:00 Test Item Value Reference Range Interpretation Comments Color, UA (test code Yellow = 5778-6) Clarity, UA (test Hazy code = 5767-9) Specific [place], UA 1.027 1.001-1.035 (test code = 5811-5) pH, UA (test code = 7.0 5.0-8.0 5803-2) Protein, UA (test 20 mg/dL Negative A code = 55740-8) Glucose, UA (test Negative Negative code = 365) Ketones, UA (test Negative Negative code = 2514-8) Bilirubin, UA (test Negative Negative code = 58187-5) Blood, UA (test code Negative Negative = 60078-2) Nitrite, UA (test Negative Negative code = 5802-4) Leukocytes, UA (test Moderate Negative A code = 5799-2) Urobilinogen, UA 0.2-1.0 H (test code = 51214-2) RBC, UA (test code = 2 See_Comment [Autom ated 46871-4) message] The system which generated this result transmit delaney reference range : /HPF. The reference range was not used to interpret this result as normal/abnormal . WBC, UA (test code = 31 See_Comment [Autom ated 5821-4) message] The system which generated this result transmit delaney reference range : /HPF. The reference range was not used to interpret this result as normal/abnormal . Bacteria, UA (test Rare code = 71355-0) Squam Epithel, UA 3 See_Comment [Automate d (test code = 19934-7) messag e] The system which generated this result transmit delaney reference range : /HPF. The reference range was not used to interpret this result as normal/abnormal . Specimen Source (test Urine, Voided code = 2795) ALEXUS (test code = ALEXUS) Do All Operator ID - [auto]Do All Operator ID - tech Lab Interpretation Abnormal (test code = 56828-7) [facility] [id number] 05:56:00 Test Item Value Reference Range Interpretation Comments Color, UA (test code Yellow = 5778-6) Clarity, UA (test Hazy code = 5767-9) Specific [place], UA 1.027 1.001-1.035 (test code = 5811-5) pH, UA (test code = 7.0 5.0-8.0 5803-2) Protein, UA (test 20 mg/dL Negative A code = 83798-4) Glucose, UA (test Negative Negative code = 365) Ketones, UA (test Negative Negative code = 2514-8) Bilirubin, UA (test Negative Negative code = 57615-3) Blood, UA (test code Negative Negative = 69916-9) Nitrite, UA (test Negative Negative code = 5802-4) Leukocytes, UA (test Moderate Negative A code = 5799-2) Urobilinogen, UA 0.2-1.0 H (test code = 65801-8) RBC, UA (test code = 2 See_Comment [Autom ated 32732-2) message] The system which generated this result transmit delaney reference range : /HPF. The reference range was not used to interpret this result as normal/abnormal . WBC, UA (test code = 31 See_Comment [Autom ated 5821-4) message] The system which generated this result transmit delaney reference range : /HPF. The reference range was not used to interpret this result as normal/abnormal . Bacteria, UA (test Rare code = 61291-4) Squam Epithel, UA 3 See_Comment [Automate d (test code = 30493-9) messag e] The system which generated this result transmit delaney reference range : /HPF. The reference range was not used to interpret this result as normal/abnormal . Specimen Source (test Urine, Voided code = 2795) ALEXUS (test code = ALEXUS) Do All Operator ID - [auto]Do All Operator ID - tech Lab Interpretation Abnormal (test code = 01372-1) [facility] [id number] 05:56:00 Test Item Value Reference Range Interpretation Comments COLOR (BEAKER) (test code = Yellow 470) CLARITY (BEAKER) (test code = Hazy 469) SPECIFIC GRAVITY UA (BEAKER) 1.027 1.001-1.035 (test code = 468) PH UA (BEAKER) (test code = 7.0 5.0-8.0 467) PROTEIN UA (BEAKER) (test code 20 mg/dL Negative A = 464) GLUCOSE UA (BEAKER) (test code Negative Negative = 365) KETONES UA (BEAKER) (test code Negative Negative = 371) BILIRUBIN UA (BEAKER) (test Negative Negative code = 462) BLOOD UA (BEAKER) (test code = Negative Negative 461) NITRITE UA (BEAKER) (test code Negative Negative = 465) LEUKOCYTE ESTERASE UA (BEAKER) Moderate Negative A (test code = 466) UROBILINOGEN UA (BEAKER) (test > 0.2-1.0 H code = 463) RBC UA (BEAKER) (test code = 2 /HPF 519) WBC UA (BEAKER) (test code = 31 /HPF 520) BACTERIA (BEAKER) (test code = Rare 517) SQUAMOUS EPITHELIAL (BEAKER) 3 /HPF (test code = 516) SOURCE(BEAKER) (test code = Urine, Voided 0146) Do All Operator ID - [auto]Do All Operator ID - techBASIC METABOLIC [id number] 05:38:00 Test Item Value Reference Range Interpretation Comments SODIUM (BEAKER) 139 meq/L 136-145 (test code = 381) POTASSIUM 4.6 meq/L 3.5-5.1 (BEAKER) (test code = 379) CHLORIDE (BEAKER) 106 meq/L 98-107 (test code = 382) CO2 (BEAKER) 26 meq/L 22-29 (test code = 355) BLOOD UREA 18 mg/dL 7-21 NITROGEN (BEAKER) (test code = 354) CREATININE 0.73 mg/dL 0.57-1.25 (BEAKER) (test code = 358) GLUCOSE RANDOM 208 mg/dL 70-105 H (BEAKER) (test code = 652) CALCIUM (BEAKER) 8.4 mg/dL 8.4-10.2 (test code = 697) EGFR (BEAKER) 97 Interpretatio n of eGFR (test code = mL/min/1.73 values Stage De scription 1092) sq m Result G1 Leilani l or high >=90 G2 Mildly decreased 60-89 G3a Mildl y to moderately 45-5 9 G3b Moderately to s everely 30-44 G4 Severl y decreased 15-29 G5 Kidney failure <15Reported eGF R is based on the CKD-EPI 1 equation that d oes not use a race coefficientEsti mated GFR is not as accur ate as Creatinine Stacey betancourt in predicting glom erular filtration rate . Estimated GFR is not appl icable for dialysis patien ts Do All Operator ID - SARAH WCBC W/PLT COUNT & AUTO [id number] 05:05:52 Test Item Value Reference Range Interpretation Comments WHITE BLOOD CELL COUNT 11.2 K/ L 3.5-10.5 H (BEAKER) (test code = 775) RED BLOOD CELL COUNT 3.35 M/ L 3.93-5.22 L (BEAKER) (test code = 761) HEMOGLOBIN (BEAKER) 9.0 GM/DL 11.2-15.7 L (test code = 410) HEMATOCRIT (BEAKER) 30.1 % 34.1-44.9 L (test code = 411) MEAN CORPUSCULAR 90 fL 79-95 Discordant MCV VOLUME (BEAKER) (test result s compared to code = 753) previous result s; clinical correl ation required. MEAN CORPUSCULAR 26.9 pg 25.6-32.2 HEMOGLOBIN (BEAKER) (test code = 751) MEAN CORPUSCULAR 29.9 GM/DL 32.2-35.5 L HEMOGLOBIN CONC (BEAKER) (test code = 752) RED CELL DISTRIBUTION 15.0 % 11.7-14.4 H WIDTH (BEAKER) (test code = 412) PLATELET COUNT 452 K/CU MM 150-450 H (BEAKER) (test code = 756) MEAN PLATELET VOLUME 10.3 fL 9.4-12.3 (BEAKER) (test code = 754) NUCLEATED RED BLOOD 0 /100 WBC 0-0 CELLS (BEAKER) (test code = 413) NEUTROPHILS RELATIVE 60 % PERCENT (BEAKER) (test code = 429) LYMPHOCYTES RELATIVE 29 % PERCENT (BEAKER) (test code = 430) MONOCYTES RELATIVE 8 % PERCENT (BEAKER) (test code = 431) EOSINOPHILS RELATIVE 3 % PERCENT (BEAKER) (test code = 432) BASOPHILS RELATIVE 0 % PERCENT (BEAKER) (test code = 437) NEUTROPHILS ABSOLUTE 6.67 K/ L 1.56-6.13 H COUNT (BEAKER) (test code = 670) LYMPHOCYTES ABSOLUTE 3.22 K/ L 1.18-3.74 COUNT (BEAKER) (test code = 414) MONOCYTES ABSOLUTE 0.89 K/ L 0.24-0.36 H COUNT (BEAKER) (test code = 415) EOSINOPHILS ABSOLUTE 0.31 K/ L 0.04-0.36 COUNT (BEAKER) (test code = 416) BASOPHILS ABSOLUTE 0.04 K/ L 0.01-0.08 COUNT (BEAKER) (test code = 417) IMMATURE 0.40 % 0.00-1.00 GRANULOCYTES-RELATIVE PERCENT (BEAKER) (test code = 2801) POCT-GLUCOSE [id number] 21:25:32 Test Item Value Reference Range Interpretation Comments POC-GLUCOSE METER 188 mg/dL 70-110 H : TESTED A T [facility] 6720 (BEAKER) (test code = [facility], 153) [address]: Do All Operator/Techni pawan ID = [id number] for IRVIN BATEMAN POCT-GLUCOSE [id number] 17:24:54 Test Item Value Reference Range Interpretation Comments POC-GLUCOSE METER 179 mg/dL 70-110 H : TESTED A T [facility] 6720 (BEAKER) (test code = [facility], 153) [address]: Do All Operator/Techni pawan ID = [id number] for Pa til, Fernando HEMOGLOBIN AND [id number] 15:39:16 Test Item Value Reference Range Interpretation Comments HEMOGLOBIN (BEAKER) (test code = 8.3 GM/DL 11.2-15.7 L 410) HEMATOCRIT (BEAKER) (test code = 27.4 % 34.1-44.9 L 411) Do All Operator ID - [id number]-GLUCOSE [id number] 12:44:54 Test Item Value Reference Range Interpretation Comments POC-GLUCOSE METER 245 mg/dL 70-110 H : TESTED A T [facility] 6720 (BEAKER) (test code = [facility], 153) [address]: Do All Operator/Techni pawan ID = [id number] for Pa til, Fernando POCT-GLUCOSE [id number] 09:55:52 Test Item Value Reference Range Interpretation Comments POC-GLUCOSE METER 145 mg/dL 70-110 H : TESTED A T [facility] 6720 (BEAKER) (test code = [facility], 153) 168[address]: Do All Operator/Techni pawan ID = [id number] for Pa til, Fernando POCT-GLUCOSE [id number] 08:48:48 Test Item Value Reference Range Interpretation Comments POC-GLUCOSE METER 151 mg/dL 70-110 H : TESTED A T [facility] 6720 (BEAKER) (test code = [facility], 153) [address]: Do All Operator/Techni pawan ID = [id number] for PU A, MADELINE BASIC METABOLIC [id number] 05:39:42 Test Item Value Reference Range Interpretation Comments SODIUM (BEAKER) 138 meq/L 136-145 (test code = 381) POTASSIUM 4.1 meq/L 3.5-5.1 Specimen slight ly (BEAKER) (test hemolyzed code = 379) CHLORIDE (BEAKER) 104 meq/L 98-107 (test code = 382) CO2 (BEAKER) 26 meq/L 22-29 (test code = 355) BLOOD UREA 23 mg/dL 7-21 H NITROGEN (BEAKER) (test code = 354) CREATININE 0.70 mg/dL 0.57-1.25 Specimen slight ly (BEAKER) (test hemolyzed code = 358) GLUCOSE RANDOM 163 mg/dL 70-105 H (BEAKER) (test code = 652) CALCIUM (BEAKER) 8.5 mg/dL 8.4-10.2 (test code = 697) EGFR (BEAKER) 102 Interpretatio n of eGFR (test code = mL/min/1.73 values Stage De scription 1092) sq m Result G1 Leilani l or high >=90 G2 Mildly decreased 60-89 G3a Mildl y to moderately 45-5 9 G3b Moderately to s everely 30-44 G4 Severl y decreased 15-29 G5 Kidney failure <15Reported eGF R is based on the CKD-EPI 2020 equation that d oes not use a race coefficientEsti mated GFR is not as accur ate as Creatinine Stacey serafin in predicting glom erular filtration rate . Estimated GFR is not appl icable for dialysis patien ts Do All Operator ID - ADMINCBC W/PLT COUNT & AUTO [id number] 05:14:34 Test Item Value Reference Range Interpretation Comments WHITE BLOOD CELL COUNT (BEAKER) 11.8 K/ L 3.5-10.5 H (test code = 775) RED BLOOD CELL COUNT (BEAKER) 3.46 M/ L 3.93-5.22 L (test code = 761) HEMOGLOBIN (BEAKER) (test code = 9.3 GM/DL 11.2-15.7 L 410) HEMATOCRIT (BEAKER) (test code = 29.8 % 34.1-44.9 L 411) MEAN CORPUSCULAR VOLUME (BEAKER) 86 fL 79-95 (test code = 753) MEAN CORPUSCULAR HEMOGLOBIN 26.9 pg 25.6-32.2 (BEAKER) (test code = 751) MEAN CORPUSCULAR HEMOGLOBIN CONC 31.2 GM/DL 32.2-35.5 L (BEAKER) (test code = 752) RED CELL DISTRIBUTION WIDTH 15.5 % 11.7-14.4 H (BEAKER) (test code = 412) PLATELET COUNT (BEAKER) (test 379 K/CU MM 150-450 code = 756) MEAN PLATELET VOLUME (BEAKER) 10.1 fL 9.4-12.3 (test code = 754) NUCLEATED RED BLOOD CELLS 0 /100 WBC 0-0 (BEAKER) (test code = 413) NEUTROPHILS RELATIVE PERCENT 60 % (BEAKER) (test code = 429) LYMPHOCYTES RELATIVE PERCENT 30 % (BEAKER) (test code = 430) MONOCYTES RELATIVE PERCENT 8 % (BEAKER) (test code = 431) EOSINOPHILS RELATIVE PERCENT 2 % (BEAKER) (test code = 432) BASOPHILS RELATIVE PERCENT 0 % (BEAKER) (test code = 437) NEUTROPHILS ABSOLUTE COUNT 7.01 K/ L 1.56-6.13 H (BEAKER) (test code = 670) LYMPHOCYTES ABSOLUTE COUNT 3.48 K/ L 1.18-3.74 (BEAKER) (test code = 414) MONOCYTES ABSOLUTE COUNT (BEAKER) 0.94 K/ L 0.24-0.36 H (test code = 415) EOSINOPHILS ABSOLUTE COUNT 0.27 K/ L 0.04-0.36 (BEAKER) (test code = 416) BASOPHILS ABSOLUTE COUNT (BEAKER) 0.05 K/ L 0.01-0.08 (test code = 417) IMMATURE GRANULOCYTES-RELATIVE 0.30 % 0.00-1.00 PERCENT (BEAKER) (test code = 2801) POCT-GLUCOSE [id number] 21:18:31 Test Item Value Reference Range Interpretation Comments POC-GLUCOSE METER 243 mg/dL 70-110 H : TESTED A T [facility] 6720 (BEAKER) (test code = [place], 1538) [address]: Do All Operator/Techni pawan ID = [id number] for ASYA BATEMANIA HEMOGLOBIN AND [id number] 20:28:10 Test Item Value Reference Range Interpretation Comments HEMOGLOBIN (BEAKER) (test code = 9.9 GM/DL 11.2-15.7 L 410) HEMATOCRIT (BEAKER) (test code = 32.3 % 34.1-44.9 L 411) Do All Operator ID - [id number] METABOLIC [id number] 13:22:42 Test Item Value Reference Range Interpretation Comments SODIUM (BEAKER) 139 meq/L 136-145 (test code = 381) POTASSIUM 4.4 meq/L 3.5-5.1 (BEAKER) (test code = 379) CHLORIDE (BEAKER) 102 meq/L 98-107 (test code = 382) CO2 (BEAKER) 31 meq/L 22-29 H (test code = 355) BLOOD UREA 22 mg/dL 7-21 H NITROGEN (BEAKER) (test code = 354) CREATININE 0.78 mg/dL 0.57-1.25 (BEAKER) (test code = 358) GLUCOSE RANDOM 156 mg/dL 70-105 H (BEAKER) (test code = 652) CALCIUM (BEAKER) 8.8 mg/dL 8.4-10.2 (test code = 697) EGFR (BEAKER) 90 Interpretatio n of eGFR (test code = mL/min/1.73 values Stage De scription 1092) sq m Result G1 Norm al or high >=90 G2 Mildly decreased 60-89 G3a Mildl y to moderately 45-5 9 G3b Moderately to s everely 30-44 G4 Severl y decreased 15-29 G5 Kidne y failure <15Reported eGF R is based on the CKD-EPI 2020 equation that d oes not use a race coefficientEsti mated GFR is not as accur ate as Creatinine Stacey serafin in predicting glom erular filtration rate . Estimated GFR is not appl icable for dialysis patien ts Do All Operator ID - MANDI [facility] FUNCTION [id number] 13:22:42 Test Item Value Reference Range Interpretation Comments TOTAL PROTEIN (BEAKER) (test code = 6.9 gm/dL 6.0-8.3 770) ALBUMIN (BEAKER) (test code = 1145) 3.4 g/dL 3.5-5.0 L BILIRUBIN TOTAL (BEAKER) (test code 0.6 mg/dL 0.2-1.2 = 377) BILIRUBIN DIRECT (BEAKER) (test 0.3 mg/dL 0.1-0.5 code = 706) ALKALINE PHOSPHATASE (BEAKER) (test 145 U/L 40-150 code = 346) AST (SGOT) (BEAKER) (test code = 12 U/L 5-34 353) ALT (SGPT) (BEAKER) (test code = 17 U/L 6-55 347) Do All Operator ID - MANDI WCBC W/PLT COUNT & AUTO [id number] 13:01:39 Test Item Value Reference Range Interpretation Comments WHITE BLOOD CELL COUNT (BEAKER) 13.8 K/ L 3.5-10.5 H (test code = 775) RED BLOOD CELL COUNT (BEAKER) 3.67 M/ L 3.93-5.22 L (test code = 761) HEMOGLOBIN (BEAKER) (test code = 10.2 GM/DL 11.2-15.7 L 410) HEMATOCRIT (BEAKER) (test code = 32.6 % 34.1-44.9 L 411) MEAN CORPUSCULAR VOLUME (BEAKER) 89 fL 79-95 (test code = 753) MEAN CORPUSCULAR HEMOGLOBIN 27.8 pg 25.6-32.2 (BEAKER) (test code = 751) MEAN CORPUSCULAR HEMOGLOBIN CONC 31.3 GM/DL 32.2-35.5 L (BEAKER) (test code = 752) RED CELL DISTRIBUTION WIDTH 15.4 % 11.7-14.4 H (BEAKER) (test code = 412) PLATELET COUNT (BEAKER) (test 432 K/CU MM 150-450 code = 756) MEAN PLATELET VOLUME (BEAKER) 10.3 fL 9.4-12.3 (test code = 754) NUCLEATED RED BLOOD CELLS 0 /100 WBC 0-0 (BEAKER) (test code = 413) NEUTROPHILS RELATIVE PERCENT 71 % (BEAKER) (test code = 429) LYMPHOCYTES RELATIVE PERCENT 20 % (BEAKER) (test code = 430) MONOCYTES RELATIVE PERCENT 7 % (BEAKER) (test code = 431) EOSINOPHILS RELATIVE PERCENT 1 % (BEAKER) (test code = 432) BASOPHILS RELATIVE PERCENT 0 % (BEAKER) (test code = 437) NEUTROPHILS ABSOLUTE COUNT 9.77 K/ L 1.56-6.13 H (BEAKER) (test code = 670) LYMPHOCYTES ABSOLUTE COUNT 2.79 K/ L 1.18-3.74 (BEAKER) (test code = 414) MONOCYTES ABSOLUTE COUNT (BEAKER) 1.01 K/ L 0.24-0.36 H (test code = 415) EOSINOPHILS ABSOLUTE COUNT 0.12 K/ L 0.04-0.36 (BEAKER) (test code = 416) BASOPHILS ABSOLUTE COUNT (BEAKER) 0.05 K/ L 0.01-0.08 (test code = 417) IMMATURE GRANULOCYTES-RELATIVE 0.50 % 0.00-1.00 PERCENT (BEAKER) (test code = 2801) POCT-GLUCOSE [id number] 12:46:03 Test Item Value Reference Range Interpretation Comments POC-GLUCOSE METER 153 mg/dL 70-110 H : TESTED A T [facility] 6720 (BEAKER) (test code = [facility], 1538) [address]: Do All Operator/Techni pawan ID = [id number] for Inez Barnes [id number] 07:54:42 Test Item Value Reference Range Interpretation Comments HGB (test code = 718-7) 10.5 g/dL 11.6-15.0 L Lab Interpretation (test code = Abnormal 87551-0) [facility] Only)2023-06-30 06:27:00 Test Item Value Reference Range Interpretation Comments ABO & RH (test code = 20) O Positive [facility] HospitalProthrombin Time / [id number] 04:31:47 Test Item Value Reference Range Interpretation Comments PROTIME PATIENT (test 13.0 See_Comment [Auto mated message] code = 5964-2) The system [email or web address] generated this result transmitted ref erence range: 12.0 - 1 4.7 Seconds. The re ference range was not u sed to interpret this result as normal/abnor mal. INR (test code = 6301-6) 1.0 Nor mal INR <1.1; Warfarin Therap eutic range 2.0 to 3. 0 or 2.5 to 3.5, dep ending upon the indica tions. Lab Interpretation (test Normal code = 09822-9) [facility]. METABOLIC PANEL (27372)2023-06-30 04:12:08 Test Item Value Reference Range Interpretation Comments NA (test code = 130 mmol/L 135-145 L 1242921587) K (test code = 3.9 mmol/L 3.5-5.0 3348761830) CL (test code = 98 mmol/L 98-108 5087251937) CO2 TOTAL (test code = 27 mmol/L 23-31 4710968348) AGAP (test code = 5 2-16 6799062858) BUN (test code = 16 mg/dL 7-23 3199074331) GLUCOSE (test code = 156 mg/dL 70-110 H 5758993661) CREATININE (test code = 0.48 mg/dL 0.50-1.04 L 5259775737) TOTAL BILI (test code = 0.7 mg/dL 0.1-1.6 8020991361) CALCIUM (test code = 9.1 mg/dL 8.6-10.6 3042568400) T PROTEIN (test code = 7.6 g/dL 6.3-8.2 8419757858) ALBUMIN (test code = 3.8 g/dL 3.5-5.0 5373627231) ALK PHOS (test code = 158 U/L 34-122 H 9686498416) ALTv (test code = 26 U/L 5-35 2-6) AST(SGOT) (test code = 20 U/L 13-40 2537237254) eGFR (test code = 134.3 mL/min/1.73m2 0446745858) ALEXUS (test code = ALEXUS) Association of Glomerular Filtration Rate (GFR) and Staging of Kidney Disease* + --+ --+ ------+| GFR (mL/min/1.73 m2) ?| With Kidney Damage ?| ?Without Kidney Damage+ --------+ --------+ +| ?>90 ?| ?Stage one ?| ? Normal ?+ ---+ ---+ -------+| ?60-89 ?| ?Stage two ?| ? Decreased GFR ? + --+ --+ ------+| ?30-59 ?| ?Stage three ?| ? Stage three ? + --+ --+ ------+| ?15-29 ?| ?Stage four ? | ? Stage four ?+ ---+ ---+ -------+| ?<15 (or dialysis) ? ?| ?Stage five ? | ? Stage five ?+ ---+ ---+ -------+ *Each stage assumes the associated GFR level has been in effect for at least three months. ?Stages 1 to 5, with or without kidney disease, indicate chronic kidney disease. Notes: Determination of stages one and two (with eGFR >59mL/min/1.73 m2) requires estimation of kidney damage for at least three months as defined by structural or functional abnormalities of the kidney, manifested by either:Pathological abnormalities or Markers of kidney damage (including abnormalities in the composition of the blood or urine or abnormalities in imaging tests). Lab Interpretation Abnormal (test code = 85992-4) [facility] Test Item Value Reference Range Interpretation Comments LIPASE (test code = 1920453051) 17 U/L 0-220 Lab Interpretation (test code = Normal 37307-8) [facility] [id number] 03:57:10 Test Item Value Reference Range Interpretation Comments WBC (test code = 15.96 See_Comment H [Automated 6690-2) message] The system which generated this result transmit delaney reference range : 4.30 - 11.10 10*3/?L. The reference range was not used to interpret this result as normal/abnormal . RBC (test code = 3.89 See_Comment L [Automated 789-8) message] The system which generated this result transmit delaney reference range : 3.93 - 5.25 10*6/?L. The reference range was not used to interpret this result as normal/abnormal . HGB (test code = 10.8 g/dL 11.6-15.0 L 718-7) HCT (test code = 33.3 % 35.7-45.2 L 4544-3) MCV (test code = 85.6 fL 80.6-95.5 787-2) MCH (test code = 27.8 pg 25.9-32.8 785-6) MCHC (test code = 32.4 g/dL 31.6-35.1 786-4) RDW-SD (test code = 47.2 fL 39.0-49.9 24083-7) RDW-CV (test code = 15.1 % 12.0-15.5 788-0) PLT (test code = 477 See_Comment H [Automated 777-3) message] The system which generated this result transmit delaney reference range : 166 - 358 10*3/ ?L. The reference range was not u sed to interpret th is result as normal/abnormal . MPV (test code = 10.5 fL 9.5-12.9 00475-4) NRBC/100 WBC (test 0.0 See_Comment [Automat ed code = [id number]) message] The system which generated this result transmit delaney reference range : 0.0 - 10.0 /100 WBCs. The reference range was not used to interpret this result as normal/abnormal . NRBC x10^3 (test code See_Comment [Auto mated = [id number]) message] The system which generated this result transmit delaney reference range : 10*3/?L. The reference range was not used to interpret this result as normal/abnormal . GRAN MAT (NEUT) % 74.2 % (test code = 770-8) IMM GRAN % (test code 0.60 % = 3519128274) LYMPH % (test code = 17.9 % 736-9) MONO % (test code = 6.7 % 5905-5) EOS % (test code = 0.3 % 713-8) BASO % (test code = 0.3 % 706-2) GRAN MAT x10^3(ANC) 11.85 10*3/uL 1.88-7.09 H (test code = 4044041563) IMM GRAN x10^3 (test 0.10 10*3/uL 0.00-0.06 H code = 7819324484) LYMPH x10^3 (test code 2.85 10*3/uL 1.32-3.29 = 731-0) MONO x10^3 (test code 1.07 10*3/uL 0.33-0.92 H = 742-7) EOS x10^3 (test code = 0.04 10*3/uL 0.03-0.39 711-2) BASO x10^3 (test code 0.05 10*3/uL 0.01-0.07 = 704-7) Lab Interpretation Abnormal (test code = 85360-4) [facility] - ONCE [id number] 03:53:00 Test Item Value Reference Range Interpretation Comments ABO & RH (test code = 20) O Positive IAT (test code = 1185) Negative [facility]OL[facility] [id number] 10:06:40 Test Item Value Reference Range Interpretation Comments SODIUM (BEAKER) 136 meq/L 136-145 (test code = 381) POTASSIUM 4.4 meq/L 3.5-5.1 (BEAKER) (test code = 379) CHLORIDE (BEAKER) 103 meq/L 98-107 (test code = 382) CO2 (BEAKER) 29 meq/L 22-29 (test code = 355) BLOOD UREA 15 mg/dL 7-21 NITROGEN (BEAKER) (test code = 354) CREATININE 0.64 mg/dL 0.57-1.25 (BEAKER) (test code = 358) GLUCOSE RANDOM 179 mg/dL 70-105 H (BEAKER) (test code = 652) CALCIUM (BEAKER) 8.5 mg/dL 8.4-10.2 (test code = 697) EGFR (BEAKER) 104 Interpretatio n of eGFR (test code = mL/min/1.73 values Stage De scription 1092) sq m Result G1 Leilani l or high >=90 G2 Mildly decreased 60-89 G3a Mildl y to moderately 45-5 9 G3b Moderately to s everely 30-44 G4 Severl y decreased 15-29 G5 Kidney failure <15Reported eGF R is based on the CKD-EPI 2020 equation that d oes not use a race coefficientEsti mated GFR is not as accur ate as Creatinine Stacey serafin in predicting glom erular filtration rate . Estimated GFR is not appl icable for dialysis patien ts Do All Operator ID - ADMINCBC W/PLT COUNT & AUTO [id number] 09:45:35 Test Item Value Reference Range Interpretation Comments WHITE BLOOD CELL COUNT (BEAKER) 10.0 K/ L 3.5-10.5 (test code = 775) RED BLOOD CELL COUNT (BEAKER) 3.50 M/ L 3.93-5.22 L (test code = 761) HEMOGLOBIN (BEAKER) (test code = 9.4 GM/DL 11.2-15.7 L 410) HEMATOCRIT (BEAKER) (test code = 30.4 % 34.1-44.9 L 411) MEAN CORPUSCULAR VOLUME (BEAKER) 87 fL 79-95 (test code = 753) MEAN CORPUSCULAR HEMOGLOBIN 26.9 pg 25.6-32.2 (BEAKER) (test code = 751) MEAN CORPUSCULAR HEMOGLOBIN CONC 30.9 GM/DL 32.2-35.5 L (BEAKER) (test code = 752) RED CELL DISTRIBUTION WIDTH 15.0 % 11.7-14.4 H (BEAKER) (test code = 412) PLATELET COUNT (BEAKER) (test 388 K/CU MM 150-450 code = 756) MEAN PLATELET VOLUME (BEAKER) 10.1 fL 9.4-12.3 (test code = 754) NUCLEATED RED BLOOD CELLS 0 /100 WBC 0-0 (BEAKER) (test code = 413) NEUTROPHILS RELATIVE PERCENT 65 % (BEAKER) (test code = 429) LYMPHOCYTES RELATIVE PERCENT 25 % (BEAKER) (test code = 430) MONOCYTES RELATIVE PERCENT 7 % (BEAKER) (test code = 431) EOSINOPHILS RELATIVE PERCENT 4 % (BEAKER) (test code = 432) BASOPHILS RELATIVE PERCENT 1 % (BEAKER) (test code = 437) NEUTROPHILS ABSOLUTE COUNT 6.43 K/ L 1.56-6.13 H (BEAKER) (test code = 670) LYMPHOCYTES ABSOLUTE COUNT 2.45 K/ L 1.18-3.74 (BEAKER) (test code = 414) MONOCYTES ABSOLUTE COUNT (BEAKER) 0.66 K/ L 0.24-0.36 H (test code = 415) EOSINOPHILS ABSOLUTE COUNT 0.35 K/ L 0.04-0.36 (BEAKER) (test code = 416) BASOPHILS ABSOLUTE COUNT (BEAKER) 0.06 K/ L 0.01-0.08 (test code = 417) IMMATURE GRANULOCYTES-RELATIVE 0.30 % 0.00-1.00 PERCENT (BEAKER) (test code = 2801) POCT-GLUCOSE [id number] 08:48:02 Test Item Value Reference Range Interpretation Comments POC-GLUCOSE METER 164 mg/dL 70-110 H : TESTED A T [facility] 6720 (BEAKER) (test code = [facility], 1538) 95042: Do All Operator/Techni pawan ID = [id number] for An Paola dao POCT-GLUCOSE [id number] 21:19:44 Test Item Value Reference Range Interpretation Comments POC-GLUCOSE METER 163 mg/dL 70-110 H : TESTED A T [facility] 6720 (BEAKER) (test code = [facility], 1538) 19996: Do All Operator/Techni pawan ID = [id number] for Nidhi Turner POCT-GLUCOSE [id number] 17:33:32 Test Item Value Reference Range Interpretation Comments POC-GLUCOSE METER 161 mg/dL 70-110 H : TESTED A T [facility] 6720 (BEAKER) (test code = [facility], 1538) 22963: Do All Operator/Techni pawan ID = [id number] for Um eh, Akumbu POCT-GLUCOSE [id number] 12:50:06 Test Item Value Reference Range Interpretation Comments POC-GLUCOSE METER 181 mg/dL 70-110 H : TESTED A T [facility] 6720 (BEAKER) (test code = [facility], 1538) 91132: Do All Operator/Techni pawan ID = [id number] for Um eh, Akumbu POCT-GLUCOSE [id number] 07:24:41 Test Item Value Reference Range Interpretation Comments POC-GLUCOSE METER 127 mg/dL 70-110 H : TESTED A T [facility] 6720 (BEAKER) (test code = [facility], 1538) 42681: Do All Operator/Techni pawan ID = [id number] for Um eh, Akumbu POCT-GLUCOSE [id number] 22:44:39 Test Item Value Reference Range Interpretation Comments POC-GLUCOSE METER 152 mg/dL 70-110 H : TESTED A T [facility] 6720 (BEAKER) (test code = [facility], 1538) 89142: Do All Operator/Techni pawan ID = [id number] for SANJAY LAMAS CT LUMBAR SPINE WITHOUT IV [id number] 17:22:04 [facility] 1965 Sex: FCTTHORACIC SPINE WITHOUT IV CONTRAST, CT LUMBAR SPINE WITHOUT IVCONTRASTINDICATION: Unlisted Reason for Examback pain post T11-L2 LAMINECTOMIES,T11,T12 POSTERIOR COLUMNOSTEOTOMIES,T9-L3 SEGMENTAL FIXATION,T9-L3 POSTEROLATERAL FUSION WITHALLOGRAFT,T12 COSTOTRANSVERSECTOMY FOR ANTERIOR T11--L1 ARTHRODESIS, OPENREDUCTION AND INTERNAL FIXATION 12 FRACTURETECHNIQUE: Axial, coronal, and sagittal noncontrast CT images of thethoracic and lumbar spine were obtained. COMPARISON: 06/24/2023 CT abdomen pelvisFINDINGS:Thoracic spine:Again seen are postoperative changes from posterior fusion at T9-L3 withinterpedicular screws and posterior interlocking rods. Bone graftmaterial seen posteriorly.Severe loss of height of the T12 vertebral body with 0.8 cm retropulsionis noted, status post kyphoplasty. Partial resection of the L94lapcpqijg body spinous process and T11-T12 laminectomies. Surgicalcement is noted in the superior aspect of the T12 vertebral body. Sclerotic changes with erosion of the inferior T11 vertebral bodies alsonoted.The spinal cord is normal in caliber. Mild to moderate spondylosis and facet arthropathy are present withinthe spine.Surgical catheters are seen in the posterior thoracic soft tissues, witha catheter extending to the laminectomy site.Lumbar spine:The vertebral bodies have normal height and alignment.Paraspinal soft tissue stuctures are unremarkable.Evaluation of the individual levels demonstrates:L1/L2: No significant spinal canal stenosis or neural foraminalnarrowing.L2/L3: No significant spinal canal stenosis or neural foraminalnarrowing.L3/L4: No significant spinal canal stenosis or neural foraminalnarrowing.L4/L5: No significant spinal canal stenosis or neural foraminalnarrowing.L5/S1: No significant spinal canal stenosis or neural foraminalnarrowing.IMPRESSION:1. Erosivechanges centered at the T11-T12 level, which may bepostoperative in nature. However, discitis-osteomyelitis is notexcluded. MRI of the thoracic spine with and without contrast can beconsidered for further evaluation.2. Postoperative changes from T9 through L3 posterior fusion, T11 andT12 laminectomies, and kyphoplasty changes at T12, with severe loss ofheight and retropulsion at T12. Electronically Signed By: Bonifacio Diana 17:24 CDTWorkstation Name: [id number] THORACIC SPINE WITHOUT IV [id number] 17:22:04 [facility] : 1965 Sex: FCTTHORACIC SPINE WITHOUT IV CONTRAST, CT LUMBAR SPINE WITHOUT IVCONTRASTINDICATION: Unlisted Reason for Examback pain post T11-L2 LAMINECTOMIES,T11,T12 POSTERIOR COLUMNOSTEOTOMIES,T9-L3 SEGMENTAL FIXATION,T9-L3 POSTEROLATERAL FUSION WITHALLOGRAFT,T12 COSTOTRANSVERSECTOMY FOR ANTERIOR T11--L1 ARTHRODESIS, OPENREDUCTION AND INTERNAL FIXATION 12 FRACTURETECHNIQUE: Axial, coronal, and sagittal noncontrast CT images of thethoracic and lumbar spine were obtained. COMPARISON: 06/24/2023 CT abdomen pelvisFINDINGS:Thoracic spine:Again seen are postoperative changes from posterior fusion at T9-L3 withinterpedicular screws and posterior interlocking rods. Bone graftmaterial seen posteriorly.Severe loss of height of the T12 vertebral body with 0.8 cm retropulsionis noted, status post kyphoplasty. Partial resection of the V22dhrflwifq body spinous process and T11-T12 laminectomies. Surgicalcement is noted in the superior aspect of the T12 vertebral body. Sclerotic changes with erosion of the inferior T11 vertebral bodies alsonoted.The spinal cord is normal in caliber. Mild to moderate spondylosis and facet arthropathy are present withinthe spine.Surgical catheters are seen in the posterior thoracic soft tissues, witha catheter extending to the laminectomy site.Lumbar spine:The vertebral bodies have normal height and alignment.Paraspinal soft tissue stuctures are unremarkable.Evaluation of the individual levels demonstrates:L1/L2: No significant spinal canal stenosis or neural foraminalnarrowing.L2/L3: No significant spinal canal stenosis or neural foraminalnarrowing.L3/L4: No significant spinal canal stenosis or neural foraminalnarrowing.L4/L5: No significant spinal canal stenosis or neural foraminalnarrowing.L5/S1: No significant spinal canal stenosis or neural foraminalnarrowing.IMPRESSION:1. Erosivechanges centered at the T11-T12 level, which may bepostoperative in nature. However, discitis-osteomyelitis is notexcluded. MRI of the thoracic spine with and without contrast can beconsidered for further evaluation.2. Postoperative changes from T9 through L3 posterior fusion, T11 andT12 laminectomies, and kyphoplasty changes at T12, with severe loss ofheight and retropulsion at T12. Electronically Signed By: Bonifacio Diana 17:24 CDTWorkstation Name: [id number] METER 2023-06-26 17:15:58 Test Item Value Reference Range Interpretation Comments POC-GLUCOSE METER 225 mg/dL 70-110 H : [facility] ([employer]) (test code = [facility] Michaud [facility], 1538) 61087: Do All Operator/Techni pawan ID = [id number] for Um eh, Akumbu POC-Glucose [id number] 11:05:54 Test Item Value Reference Range Interpretation Comments POC-Glucose Meter (test 174 mg/dL 70-110 H : TE STED AT [facility] code = 1538) 6720 [facility], 770 30: Do All Operator/Techni pawan ID = [id number] for Umeh, Akumbu Lab Interpretation (test Abnormal code = 88390-1) [facility] [id number] 11:05:54 Test Item Value Reference Range Interpretation Comments POC-GLUCOSE METER 174 mg/dL 70-110 H : TESTED A T [facility] 6720 (BEAKER) (test code = [facility], 1538) 65939: Do All Operator/Techni pawan ID = [id number] for Um eh, Akumbu POCT-GLUCOSE [id number] 08:12:18 Test Item Value Reference Range Interpretation Comments POC-GLUCOSE METER 178 mg/dL 70-110 H : TESTED A T [facility] 6720 (BEAKER) (test code = [facility], 1538) 18150: Do All Operator/Techni pawan ID = [id number] for Um eh, Akumbu POCT-GLUCOSE [id number] 21:14:05 Test Item Value Reference Range Interpretation Comments POC-GLUCOSE METER 257 mg/dL 70-110 H : TESTED A T [facility] 6720 (BEAKER) (test code = [facility], 1538) 24617: Do All Operator/Techni pawan ID = [id number] for SANJAY LAMAS POCT-GLUCOSE [id number] 17:37:11 Test Item Value Reference Range Interpretation Comments POC-GLUCOSE METER 247 mg/dL 70-110 H : TESTED A T [facility] 6720 (BEAKER) (test code = [facility], 1538) 72787: Do All Operator/Techni pawan ID = [id number] for Um eh, Akumbu HIGH SENSITIVITY TROPONIN [id number] 09:10:28 Test Item Value Reference Range Interpretation Comments HIGH SENSITIVITY TROPONIN I (test 31 pg/ml <=17 H code = 5670744) Do All Operator ID - ADMINThe ORTHODONTIC ASSISTANT STAT High Sensitivity Troponin-I results should be used in conjunction with other diagnostic information such as ECG, clinical observations and information, and patientsymptoms to aid in the diagnosis of WI. POCT-GLUCOSE [id number] 07:26:42 Test Item Value Reference Range Interpretation Comments POC-GLUCOSE METER 143 mg/dL 70-110 H : TESTED A T [facility] 6720 (BEAKER) (test code = [facility], 1538) 85477: Do All Operator/Techni pawan ID = [id number] for EVIN SOLIMAN HIGH SENSITIVITY TROPONIN [id number] 01:15:07 Test Item Value Reference Range Interpretation Comments HIGH SENSITIVITY TROPONIN I (test 32 pg/ml <=17 H code = 6679169) Do All Operator ID - ADMINThe ORTHODONTIC ASSISTANT STAT High Sensitivity Troponin-I results should be used in conjunction with other diagnostic information such as ECG, clinical observations and information, and patientsymptoms to aid in the diagnosis of [place]. CT ABDOMEN/PELVIS WITH IV [id number] 00:10:02 [facility] : 1965 Sex: FTECHNIQUE: CT of the abdomen and pelvis WITH intravenous contrast andWITHOUT oral contrast. Dose modulation, iterative reconstruction, and/orweight-based adjustment of the mA/kV was utilized to reduce theradiation dose to as low as reasonably achievable.INDICATION: Bowel obstruction suspected.COMPARISON:KUB from earlier today.FINDINGS:LOWER THORAX: Unremarkable.HEPATOBILIARY: The caudate lobe is enlarged. No focal hepatic lesions.Gallbladder is unremarkable. No biliary ductal dilatation.SPLEEN: No splenomegaly. A hypodensity in the spleen measures 1.4 cm andis indeterminate. 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 The pancreas isatrophic.ADRENALS: No adrenal nodules.KIDNEY S/URETERS: No hydronephrosis, stones, or masses.PELVIC ORGANS/BLADDER: The bladder is decompressed by a catheter.PERITONEUM/RETROPERITONEUM: No free air or fluid.LYMPH NODES: No lymphadenopathy.VESSELS: Moderate aortoiliac atherosclerotic calcification.GI TRACT: No distention or wall thickening. The ap pendix is normal.BONES AND SOFT TISSUES: Recent posterior fusion from T9 through L3 withtranspedicular screws and a connecting rods. Prior compression deformityof T12 with moderate retropulsion. Interval laminectomy at T11 and T12.Surgical catheters in the soft tissues superficial to the lumbar spine.The gas in the 70s tissues of the left pelvis is most consistent withrecent medication injection.IMPRESSION:1. No acute abnormality in the abdomen or pelvis.2. The enlargement of the caudate lobe is concerning for chronicparenchymal liver disease. A MR of the abdomen with and withoutintravenous contrast with elastography is recommended for furtherevaluation on a nonemergent basis.3. A 1.4 cm hypodensity in the spleen is indeterminate. This can befurther evaluated on the MR of the abdomen with and without intravenouscontrast as well.Electronically Signed By: Brian Valles06/25/2023 00:13 CDTWorkstation Name: [id number] 23:18:33 Test Item Value Reference Range Interpretation Comments POC-GLUCOSE METER 184 mg/dL 70-110 H : TESTED A T [facility] 6720 (BEAKER) (test code = [facility], 1538) 20955: Do All Operator/Techni pawan ID = [id number] for MICHAEL MA [id number] 19:06:00 Test Item Value Reference Range Interpretation Comments LIPASE (BEAKER) (test code = 749) < U/L 8-78 L Do All Operator ID - MARCOHEPATIC FUNCTION [id number] 19:05:13 Test Item Value Reference Range Interpretation Comments TOTAL PROTEIN (BEAKER) (test code = 6.9 gm/dL 6.0-8.3 770) ALBUMIN (BEAKER) (test code = 1145) 3.4 g/dL 3.5-5.0 L BILIRUBIN TOTAL (BEAKER) (test code 0.5 mg/dL 0.2-1.2 = 377) BILIRUBIN DIRECT (BEAKER) (test 0.3 mg/dL 0.1-0.5 code = 706) ALKALINE PHOSPHATASE (BEAKER) (test 142 U/L 40-150 code = 346) AST (SGOT) (BEAKER) (test code = 23 U/L 5-34 353) ALT (SGPT) (BEAKER) (test code = 37 U/L 6-55 347) Do All Operator ID - MARCOPOCT-GLUCOSE [id number] 17:27:43 Test Item Value Reference Range Interpretation Comments POC-GLUCOSE METER 198 mg/dL 70-110 H : TESTED A T [facility] 6720 (BEAKER) (test code = [facility] Michaud [facility], 1538) 37798: Do All Operator/Techni pawan ID = [id number] for EVIN SOLIMAN HIGH SENSITIVITY TROPONIN [id number] 17:04:36 Test Item Value Reference Range Interpretation Comments HIGH SENSITIVITY TROPONIN I (test 41 pg/ml <=17 H code = 8442685) Do All Operator ID - ADMINThe ORTHODONTIC ASSISTANT STAT High Sensitivity Troponin-I results should be used in conjunction with other diagnostic information such as ECG, clinical observations and information, and patientsymptoms to aid in the diagnosis of WI. XR ABDOMEN/KUB 1 VIEW [id number] 14:55:14 [facility] 1965 Sex: FTECHNIQUE: XR ABDOMEN/KUB 1 VIEW PORTABLEINDICATION: N/V with bile like substance.COMPARISON: None.FINDINGS:Moderate amount of stool within the ascending and proximal transversecolon. No specific evidencefor bowel obstruction. Thoracolumbar spinalfixation hardware is present. Supine radiographs are insensitive fordetection of free intraperitoneal air.IMPRESSION:Moderate amount of stool within the proximal colon. No specific evidencefor bowel obstruction.Electronically Signed By: Leander Benitez06/24/2023 14:57 CDTWorkstation Name: [id number] METABOLIC [id number] 13:41:33 Test Item Value Reference Range Interpretation Comments SODIUM (BEAKER) 141 meq/L 136-145 (test code = 381) POTASSIUM 4.1 meq/L 3.5-5.1 (BEAKER) (test code = 379) CHLORIDE (BEAKER) 106 meq/L 98-107 (test code = 382) CO2 (BEAKER) 24 meq/L 22-29 (test code = 355) BLOOD UREA 12 mg/dL 7-21 NITROGEN (BEAKER) (test code = 354) CREATININE 0.58 mg/dL 0.57-1.25 (BEAKER) (test code = 358) GLUCOSE RANDOM 180 mg/dL 70-105 H (BEAKER) (test code = 652) CALCIUM (BEAKER) 8.8 mg/dL 8.4-10.2 (test code = 697) EGFR (BEAKER) 107 Interpretatio n of eGFR (test code = mL/min/1.73 values Stage De scription 1092) sq m Result G1 Leilani l or high >=90 G2 Mildly decreased 60-89 G3a Mildl y to moderately 45-5 9 G3b Moderately to s everely 30-44 G4 Severl y decreased 15-29 G5 Kidney failure <15Reported eGF R is based on the CKD-EPI 2020 equation that d oes not use a race coefficientEsti mated GFR is not as accur ate as Creatinine Stacey serafin in predicting glom erular filtration rate . Estimated GFR is not appl icable for dialysis patien ts Do All Operator ID - ADMINCBC W/PLT COUNT & AUTO [id number] 13:20:42 Test Item Value Reference Range Interpretation Comments WHITE BLOOD CELL COUNT (BEAKER) 11.8 K/ L 3.5-10.5 H (test code = 775) RED BLOOD CELL COUNT (BEAKER) 3.64 M/ L 3.93-5.22 L (test code = 761) HEMOGLOBIN (BEAKER) (test code = 10.0 GM/DL 11.2-15.7 L 410) HEMATOCRIT (BEAKER) (test code = 32.0 % 34.1-44.9 L 411) MEAN CORPUSCULAR VOLUME (BEAKER) 88 fL 79-95 (test code = 753) MEAN CORPUSCULAR HEMOGLOBIN 27.5 pg 25.6-32.2 (BEAKER) (test code = 751) MEAN CORPUSCULAR HEMOGLOBIN CONC 31.3 GM/DL 32.2-35.5 L (BEAKER) (test code = 752) RED CELL DISTRIBUTION WIDTH 14.9 % 11.7-14.4 H (BEAKER) (test code = 412) PLATELET COUNT (BEAKER) (test 249 K/CU MM 150-450 code = 756) MEAN PLATELET VOLUME (BEAKER) 10.6 fL 9.4-12.3 (test code = 754) NUCLEATED RED BLOOD CELLS 0 /100 WBC 0-0 (BEAKER) (test code = 413) NEUTROPHILS RELATIVE PERCENT 76 % (BEAKER) (test code = 429) LYMPHOCYTES RELATIVE PERCENT 17 % (BEAKER) (test code = 430) MONOCYTES RELATIVE PERCENT 5 % (BEAKER) (test code = 431) EOSINOPHILS RELATIVE PERCENT 1 % (BEAKER) (test code = 432) BASOPHILS RELATIVE PERCENT 0 % (BEAKER) (test code = 437) NEUTROPHILS ABSOLUTE COUNT 8.93 K/ L 1.56-6.13 H (BEAKER) (test code = 670) LYMPHOCYTES ABSOLUTE COUNT 1.97 K/ L 1.18-3.74 (BEAKER) (test code = 414) MONOCYTES ABSOLUTE COUNT (BEAKER) 0.64 K/ L 0.24-0.36 H (test code = 415) EOSINOPHILS ABSOLUTE COUNT 0.15 K/ L 0.04-0.36 (BEAKER) (test code = 416) BASOPHILS ABSOLUTE COUNT (BEAKER) 0.03 K/ L 0.01-0.08 (test code = 417) IMMATURE GRANULOCYTES-RELATIVE 0.30 % 0.00-1.00 PERCENT (BEAKER) (test code = 2801) POCT-GLUCOSE [id number] 11:56:29 Test Item Value Reference Range Interpretation Comments POC-GLUCOSE METER 154 mg/dL 70-110 H : TESTED A T [facility] 6720 (BEAKER) (test code = [facility], 1538) 79891: Do All Operator/Techni pawan ID = [id number] for MA RTINEZ, EVIN POCT-GLUCOSE [id number] 07:30:19 Test Item Value Reference Range Interpretation Comments POC-GLUCOSE METER 149 mg/dL 70-110 H : TESTED A T [facility] 6720 (BEAKER) (test code = [facility], 1538) 98864: Do All Operator/Techni pawan ID = [id number] for MA RTINEZ, EVIN XR LUMBAR SPINE 2 OR 3 [id number] 02:18:20 [facility] 1965 Sex: FCLINICAL HISTORY: post opCOMPARISON: None.FINDINGS:2 upright images of a portion of the thoracic and lumbar spine aresubmitted.Assuming there are 12 rib-bearing levels and that kyphoplasty cement ispresent in the T12 vertebral level, there is transpedicular screw andposterior donovan fixation hardware from T9 through L3. The hardware appearsperipherally positioned.Surgical drains are present in the posterior paraspinal soft tissues. Electronically Signed By: Mark Cruz06/24/2023 02:20 CDTWorkstation Name: [id number] 19:58:32 Test Item Value Reference Range Interpretation Comments POC-GLUCOSE METER 161 mg/dL 70-110 H : TESTED A T [facility] 6720 ([employer]) (test code = [facility], 153) 47685: Do All Operator/Techni pawan ID = [id number] for GR AHAM, SHARON POCT-GLUCOSE [id number] 17:14:53 Test Item Value Reference Range Interpretation Comments POC-GLUCOSE METER 157 mg/dL 70-110 H : TESTED A T [facility] 6720 ([employer]) (test code = [facility], 1538) 09912: Do All Operator/Techni pawan ID = [id number] for RO DGERS, JAMECA POCT-GLUCOSE [id number] 11:50:40 Test Item Value Reference Range Interpretation Comments POC-GLUCOSE METER 193 mg/dL 70-110 H : TESTED A T [facility] 6720 ([employer]) (test code = [facility], 1538) 09017: Do All Operator/Techni pawan ID = [id number] for RO DGERS, JAMECA POCT-GLUCOSE [id number] 08:03:39 Test Item Value Reference Range Interpretation Comments POC-GLUCOSE METER 158 mg/dL 70-110 H : TESTED A T [facility] 6720 (BEAKER) (test code = [facility], 1538) 09448: Do All Operator/Techni pawan ID = [id number] for AYAD DGMIKO HOWARD POCT-GLUCOSE [id number] 21:29:37 Test Item Value Reference Range Interpretation Comments POC-GLUCOSE METER 130 mg/dL 70-110 H : TESTED A T [facility] 6720 (BEAKER) (test code = [facility], [facility]8) 37846: Do All Operator/Techni pawan ID = [id number] for UL LATTIL, FORD POCT-GLUCOSE [id number] 19:27:28 Test Item Value Reference Range Interpretation Comments POC-GLUCOSE METER 176 mg/dL 70-110 H : TESTED A T [facility] 6720 (BEAKER) (test code = [facility], [facility]8) 29717: Do All Operator/Techni pawan ID = [id number] for RO DGANITA, GUILHERMEECA POCT-GLUCOSE [id number] 12:17:39 Test Item Value Reference Range Interpretation Comments POC-GLUCOSE METER 138 mg/dL 70-110 H : TESTED A T [facility] 6720 (BEAKER) (test code = [facility], [facility]8) 16922: Do All Operator/Techni pawan ID = [id number] for AYAD DGGUILHERME HOWARDECA POCT-GLUCOSE [id number] 08:02:09 Test Item Value Reference Range Interpretation Comments POC-GLUCOSE METER 138 mg/dL 70-110 H : TESTED A T [facility] 6720 (BEAKER) (test code = [facility], [facility]8) [address]: Do All Operator/Techni pawan ID = [id number] for RO DGERS, GUILHERMEECA BASIC METABOLIC [id number] 05:59:09 Test Item Value Reference Range Interpretation Comments SODIUM (BEAKER) 142 meq/L 136-145 (test code = 381) POTASSIUM 3.7 meq/L 3.5-5.1 (BEAKER) (test code = 379) CHLORIDE (BEAKER) 113 meq/L 98-107 H (test code = 382) CO2 (BEAKER) 23 meq/L 22-29 (test code = 355) BLOOD UREA 20 mg/dL 7-21 NITROGEN (BEAKER) (test code = 354) CREATININE 0.60 mg/dL 0.57-1.25 (BEAKER) (test code = 358) GLUCOSE RANDOM 121 mg/dL 70-105 H (BEAKER) (test code = 652) CALCIUM (BEAKER) 8.3 mg/dL 8.4-10.2 L (test code = 697) EGFR (BEAKER) 106 Interpretatio n of eGFR (test code = mL/min/1.73 values Stage De scription 1092) sq m Result G1 Leilani l or high >=90 G2 Mildly decreased 60-89 G3a Mildl y to moderately 45-5 9 G3b Moderately to s everely 30-44 G4 Severl y decreased 15-29 G5 Kidney failure <15Reported eGF R is based on the CKD-EPI 2020 equation that d oes not use a race coefficientEsti mated GFR is not as accur ate as Creatinine Stacey serafin in predicting glom erular filtration rate . Estimated GFR is not appl icable for dialysis patien ts Do All Operator ID - MARCOCBC (HEMOGRAM ONLY)2023-06-22 05:41:34 Test Item Value Reference Range Interpretation Comments WHITE BLOOD CELL COUNT (BEAKER) 10.3 K/ L 3.5-10.5 (test code = 775) RED BLOOD CELL COUNT (BEAKER) 3.46 M/ L 3.93-5.22 L (test code = 761) HEMOGLOBIN (BEAKER) (test code = 9.2 GM/DL 11.2-15.7 L 410) HEMATOCRIT (BEAKER) (test code = 30.1 % 34.1-44.9 L 411) MEAN CORPUSCULAR VOLUME (BEAKER) 87 fL 79-95 (test code = 753) MEAN CORPUSCULAR HEMOGLOBIN 26.6 pg 25.6-32.2 (BEAKER) (test code = 751) MEAN CORPUSCULAR HEMOGLOBIN CONC 30.6 GM/DL 32.2-35.5 L (BEAKER) (test code = 752) RED CELL DISTRIBUTION WIDTH 15.6 % 11.7-14.4 H (BEAKER) (test code = 412) PLATELET COUNT (BEAKER) (test 160 K/CU MM 150-450 code = 756) MEAN PLATELET VOLUME (BEAKER) 11.6 fL 9.4-12.3 (test code = 754) NUCLEATED RED BLOOD CELLS 0 /100 WBC 0-0 (BEAKER) (test code = 413) POCT-GLUCOSE [id number] 22:10:42 Test Item Value Reference Range Interpretation Comments POC-GLUCOSE METER 171 mg/dL 70-110 H : TESTED A T [facility] 6720 (BEAKER) (test code = [place], 1538) [address]: Do All Operator/Techni pawan ID = [id number] for SANJAY LAMAS POCT-GLUCOSE [id number] 19:15:14 Test Item Value Reference Range Interpretation Comments POC-GLUCOSE METER 158 mg/dL 70-110 H : TESTED A T [facility] 6720 (BEAKER) (test code = [facility], 1538) [address]: Do All Operator/Techni pawan ID = [id number] for Danny mei (contract)[facility] Blood gas, [id number] 16:02:44 Test Item Value Reference Range Interpretation Comments pH, Arterial (test code 7.43 7.35-7.45 = 2744-1) pCO2, Arterial (test 35 See_Comment [Autom ated code = 2019-8) message] The system which generated this result transmitted reference range : 35 - 45 mm Hg. The reference range was not used to interpret this result as normal/abnormal . pO2, Arterial (test 68 See_Comment L [Automa delaney code = 2703-7) message] The system which generated this result transmitted reference range : 80 - 90 mm Hg. The reference range was not used to interpret this result as normal/abnormal . O2 Sat, Arterial (test 94.8 % 96.0-97.0 L code = 2708-6) HCO3, Arterial (test 23 mmol/L 21-29 code = 1960-4) Base Excess, Arterial -1.0 mmol/L -2.0-3.0 (test code = 1925-7) Patient Temperature 36.3 (test code = 8310-5) FIO2 (test code = 1819) 21.0 Lab Interpretation Abnormal (test code = 35529-7) [facility] [id number] 16:02:44 Test Item Value Reference Range Interpretation Comments pH, Arterial (test code 7.43 7.35-7.45 = 2744-1) pCO2, Arterial (test 35 See_Comment [Autom ated code = 2019) message] The system which generated this result transmitted reference range : 35 - 45 mm Hg. The reference range was not used to interpret this result as normal/abnormal . pO2, Arterial (test 68 See_Comment L [Automa delaney code = 2703-7) message] The system which generated this result transmitted reference range : 80 - 90 mm Hg. The reference range was not used to interpret this result as normal/abnormal . O2 Sat, Arterial (test 94.8 % 96.0-97.0 L code = 2708-6) HCO3, Arterial (test 23 mmol/L 21-29 code = 1960-4) Base Excess, Arterial -1.0 mmol/L -2.0-3.0 (test code = 1925-7) Patient Temperature 36.3 (test code = 8310-5) FIO2 (test code = 1819) 21.0 Lab Interpretation Abnormal (test code = 34273-3) [facility] [id number] 16:02:44 Test Item Value Reference Range Interpretation Comments pH, Arterial (test code 7.43 7.35-7.45 = 2744-1) pCO2, Arterial (test 35 See_Comment [Autom ated code = 2019-04) message] The system which generated this result transmitted reference range : 35 - 45 mm Hg. The reference range was not used to interpret this result as normal/abnormal . pO2, Arterial (test 68 See_Comment L [Automa delaney code = 2703-7) message] The system which generated this result transmitted reference range : 80 - 90 mm Hg. The reference range was not used to interpret this result as normal/abnormal . O2 Sat, Arterial (test 94.8 % 96.0-97.0 L code = 2708-6) HCO3, Arterial (test 23 mmol/L 21-29 code = 1960-4) Base Excess, Arterial -1.0 mmol/L -2.0-3.0 (test code = 1925-7) Patient Temperature 36.3 (test code = 8310-5) FIO2 (test code = 1819) 21.0 Lab Interpretation Abnormal (test code = 32965-6) [facility] gas, [id number] 16:02:44 Test Item Value Reference Range Interpretation Comments pH, Arterial (test code 7.43 7.35-7.45 = 2744-1) pCO2, Arterial (test 35 See_Comment [Autom ated code = 2019-) message] The system which generated this result transmitted reference range : 35 - 45 mm Hg. The reference range was not used to interpret this result as normal/abnormal . pO2, Arterial (test 68 See_Comment L [Automa delaney code = 2703-7) message] The system which generated this result transmitted reference range : 80 - 90 mm Hg. The reference range was not used to interpret this result as normal/abnormal . O2 Sat, Arterial (test 94.8 % 96.0-97.0 L code = 2708-6) HCO3, Arterial (test 23 mmol/L 21-29 code = 1960-4) Base Excess, Arterial -1.0 mmol/L -2.0-3.0 (test code = 1925-7) Patient Temperature 36.3 (test code = 8310-5) FIO2 (test code = 1819) 21.0 Lab Interpretation Abnormal (test code = 82130-1) [facility], [id number] 16:02:44 Test Item Value Reference Range Interpretation Comments PH ARTERIAL (BEAKER) (test code = 7.43 7.35-7.45 383) PCO2 ARTERIAL (BEAKER) (test code 35 mm Hg 35-45 = 384) PO2 ARTERIAL (BEAKER) (test code 68 mm Hg 80-90 L = 385) O2 SATURATION ARTERIAL (BEAKER) 94.8 % 96.0-97.0 L (test code = 386) HCO3 ARTERIAL (BEAKER) (test code 23 mmol/L 21-29 = 388) BASE EXCESS ARTERIAL (BEAKER) -1.0 mmol/L -2.0-3.0 (test code = 387) PATIENT TEMPERATURE (BEAKER) 36.3 (test code = 1818) FIO2 (BEAKER) (test code = 1819) 21.0 POCT-GLUCOSE [id number] 08:53:16 Test Item Value Reference Range Interpretation Comments POC-GLUCOSE METER 89 mg/dL 70-110 : TESTED A T [facility] 6720 (BEAKER) (test code = [facility], 1538) [address]: Do All Operator/Techni pawan ID = [id number] for Edin esparza (contract)Morales POCT-GLUCOSE [id number] 07:34:47 Test Item Value Reference Range Interpretation Comments POC-GLUCOSE METER 81 mg/dL 70-110 : TESTED A T [facility] 6720 (BEAKER) (test code = [facility], 1538) [address]: Do All Operator/Techni pawan ID = [id number] for Aziza Moseley POCT-GLUCOSE [id number] 05:38:21 Test Item Value Reference Range Interpretation Comments POC-GLUCOSE METER 87 mg/dL 70-110 : TESTED A T [facility] 6720 (BEAKER) (test code = [facility], 153) [address]: Do All Operator/Techni pawan ID = [id number] for DARCY UDL BASIC METABOLIC [id number] 05:14:41 Test Item Value Reference Range Interpretation Comments SODIUM (BEAKER) 141 meq/L 136-145 (test code = 381) POTASSIUM 3.7 meq/L 3.5-5.1 (BEAKER) (test code = 379) CHLORIDE (BEAKER) 113 meq/L 98-107 H (test code = 382) CO2 (BEAKER) 22 meq/L 22-29 (test code = 355) BLOOD UREA 26 mg/dL 7-21 H NITROGEN (BEAKER) (test code = 354) CREATININE 0.84 mg/dL 0.57-1.25 (BEAKER) (test code = 358) GLUCOSE RANDOM 99 mg/dL 70-105 (BEAKER) (test code = 652) CALCIUM (BEAKER) 8.0 mg/dL 8.4-10.2 L (test code = 697) EGFR (BEAKER) 82 Interpretatio n of eGFR (test code = mL/min/1.73 values Stage De scription 1092) sq m Result G1 Leilani l or high >=90 G2 Mildly decreased 60-89 G3a Mildl y to moderately 45-5 9 G3b Moderately to s everely 30-44 G4 Severl y decreased 15-29 G5 Kidney failure <15Reported eGF R is based on the CKD-EPI 2020 equation that d oes not use a race coefficientEsti mated GFR is not as accur ate as Creatinine Stacey betancourt in predicting glom erular filtration rate . Estimated GFR is not appl icable for dialysis patien ts Do All Operator ID - emCBC (HEMOGRAM ONLY)2023-06-21 04:55:13 Test Item Value Reference Range Interpretation Comments WHITE BLOOD CELL COUNT (BEAKER) 11.9 K/ L 3.5-10.5 H (test code = 775) RED BLOOD CELL COUNT (BEAKER) 3.38 M/ L 3.93-5.22 L (test code = 761) HEMOGLOBIN (BEAKER) (test code = 9.1 GM/DL 11.2-15.7 L 410) HEMATOCRIT (BEAKER) (test code = 29.6 % 34.1-44.9 L 411) MEAN CORPUSCULAR VOLUME (BEAKER) 88 fL 79-95 (test code = 753) MEAN CORPUSCULAR HEMOGLOBIN 26.9 pg 25.6-32.2 (BEAKER) (test code = 751) MEAN CORPUSCULAR HEMOGLOBIN CONC 30.7 GM/DL 32.2-35.5 L (BEAKER) (test code = 752) RED CELL DISTRIBUTION WIDTH 15.9 % 11.7-14.4 H (BEAKER) (test code = 412) PLATELET COUNT (BEAKER) (test 185 K/CU MM 150-450 code = 756) MEAN PLATELET VOLUME (BEAKER) 11.8 fL 9.4-12.3 (test code = 754) NUCLEATED RED BLOOD CELLS 0 /100 WBC 0-0 (BEAKER) (test code = 413) POCT-GLUCOSE [id number] 00:02:01 Test Item Value Reference Range Interpretation Comments POC-GLUCOSE METER 70 mg/dL 70-110 : TESTED A T [facility] 6720 (BEAKER) (test code = [place], 1538) [address]: Do All Operator/Techni pawan ID = [id number] for SANJAY PARTIDA [id number] 23:55:00 Test Item Value Reference Range Interpretation Comments CROSSMATCH (test code = 2264) COMPATIBLE Unit ABO (test code = O Pos 2830874) UNIT NUMBER (test code = [id number] 934-0) Status (test code = 2744343) TX_TIMEINCHART Blood Bank Product (test code RED BLOOD CELLS = 2263) PRODUCT CODE (test code = F4964H06 933-2) [facility] [id number] 23:55:00 Test Item Value Reference Range Interpretation Comments CROSSMATCH (test code = 2264) COMPATIBLE Unit ABO (test code = O Pos 7169478) UNIT NUMBER (test code = [id number] 934-0) Status (test code = 9386564) TX_TIMEINCHART Blood Bank Product (test code RED BLOOD CELLS = 2263) PRODUCT CODE (test code = T2717E72 933-2) [facility] Hospital[facility] [id number] 23:55:00 Test Item Value Reference Range Interpretation Comments CROSSMATCH (test code = 2264) COMPATIBLE Unit ABO (test code = O Pos 6314430) UNIT NUMBER (test code = [id number] 934-0) Status (test code = 5293210) [facility] Blood [facility] Product (test code RED BLOOD CELLS = 2263) PRODUCT CODE (test code = T3547W30 933-2) [facility] [id number] 23:55:00 Test Item Value Reference Range Interpretation Comments CROSSMATCH (test code = 2264) COMPATIBLE Unit ABO (test code = O Pos 2175975) UNIT NUMBER (test code = [id number] 934-0) Status (test code = 4442782) TX_TIMEINCHART Blood Bank Product (test code RED BLOOD CELLS = 2263) PRODUCT CODE (test code = D8010M20 933-2) [facility] HospitalPO[facility] [id number] 23:28:42 Test Item Value Reference Range Interpretation Comments POC-GLUCOSE METER 59 mg/dL 70-110 L : TESTED A T [facility] 6720 (BEAKER) (test code = [place], 1538) [address]: Do All Operator/Techni pawan ID = [id number] for SANJAY PARTIDA BASIC METABOLIC [id number] 06:27:24 Test Item Value Reference Range Interpretation Comments SODIUM (BEAKER) 142 meq/L 136-145 (test code = 381) POTASSIUM 3.8 meq/L 3.5-5.1 (BEAKER) (test code = 379) CHLORIDE (BEAKER) 112 meq/L 98-107 H (test code = 382) CO2 (BEAKER) 21 meq/L 22-29 L (test code = 355) BLOOD UREA 14 mg/dL 7-21 NITROGEN (BEAKER) (test code = 354) CREATININE 0.66 mg/dL 0.57-1.25 (BEAKER) (test code = 358) GLUCOSE RANDOM 144 mg/dL 70-105 H (BEAKER) (test code = 652) CALCIUM (BEAKER) 9.0 mg/dL 8.4-10.2 (test code = 697) EGFR (BEAKER) 104 Interpretatio n of eGFR (test code = mL/min/1.73 values Stage De scription 1092) sq m Result G1 Leilani l or high >=90 G2 Mildly decreased 60-89 G3a Mildl y to moderately 45-5 9 G3b Moderately to s everely 30-44 G4 Severl y decreased 15-29 G5 Kidne y failure <15Reported eGF R is based on the CKD-EPI 2020 equation that d oes not use a race coefficientEsti mated GFR is not as accur ate as Creatinine Stacey serafin in predicting glom erular filtration rate . Estimated GFR is not appl icable for dialysis patien ts Do All Operator ID - BSCBC (HEMOGRAM ONLY)2023-06-20 05:53:33 Test Item Value Reference Range Interpretation Comments WHITE BLOOD CELL COUNT (BEAKER) 14.2 K/ L 3.5-10.5 H (test code = 775) RED BLOOD CELL COUNT (BEAKER) 4.03 M/ L 3.93-5.22 (test code = 761) HEMOGLOBIN (BEAKER) (test code = 10.9 GM/DL 11.2-15.7 L 410) HEMATOCRIT (BEAKER) (test code = 34.1 % 34.1-44.9 411) MEAN CORPUSCULAR VOLUME (BEAKER) 85 fL 79-95 (test code = 753) MEAN CORPUSCULAR HEMOGLOBIN 27.0 pg 25.6-32.2 (BEAKER) (test code = 751) MEAN CORPUSCULAR HEMOGLOBIN CONC 32.0 GM/DL 32.2-35.5 L (BEAKER) (test code = 752) RED CELL DISTRIBUTION WIDTH 15.0 % 11.7-14.4 H (BEAKER) (test code = 412) PLATELET COUNT (BEAKER) (test 231 K/CU MM 150-450 code = 756) MEAN PLATELET VOLUME (BEAKER) 11.1 fL 9.4-12.3 (test code = 754) NUCLEATED RED BLOOD CELLS 0 /100 WBC 0-0 (BEAKER) (test code = 413) POCT-GLUCOSE [id number] 05:43:12 Test Item Value Reference Range Interpretation Comments POC-GLUCOSE METER 134 mg/dL 70-110 H : TESTED A T [facility] 6720 (BEAKER) (test code = [facility], 1538) [address]: Do All Operator/Techni pawan ID = [id number] for DL SLOAN POCT-GLUCOSE [id number] 16:00:14 Test Item Value Reference Range Interpretation Comments POC-GLUCOSE METER 222 mg/dL 70-110 H : TESTED A T [facility] 6720 (BEAKER) (test code = [facility], 1538) [address]: Do All Operator/Techni pawan ID = [id number] for Pedrito Cutler [place] FLUORO NON-SPECIFIC UP TO 1 [id number] 15:13:52 [facility] 1965 Sex: FThis is a non- reportable study with no Radiologist dictation. Please refer to your PACS to review images, or Doc Flowsheets for documentation on studies without images. Calcium, [id number] 12:59:00 Test Item Value Reference Range Interpretation Comments Calcium, Ion (test code = 1993-11) 1.15 mmol/L 1.12-1.27 pH, Blood (test code = 43284-3) 7.39 [facility] HospitalCal[facility], [id number] 12:59:00 Test Item Value Reference Range Interpretation Comments Calcium, Ion (test code = 1993-11) 1.15 mmol/L 1.12-1.27 pH, Blood (test code = 91432-6) 7.39 [facility] HospitalCal[facility], [id number] 12:59:00 Test Item Value Reference Range Interpretation Comments Calcium, Ion (test code = 1993-11) 1.15 mmol/L 1.12-1.27 pH, Blood (test code = 97116-0) 7.39 [facility]Cal[facility], [id number] 12:59:00 Test Item Value Reference Range Interpretation Comments Calcium, Ion (test code = 1993-11) 1.15 mmol/L 1.12-1.27 pH, Blood (test code = 53525-4) 7.39 [facility] HospitalCALCIUM, [id number] 12:59:00 Test Item Value Reference Range Interpretation Comments CALCIUM IONIZED (BEAKER) (test 1.15 mmol/L 1.12-1.27 code = 698) PH, BLOOD (BEAKER) (test code = 7.39 1810) BLOOD GAS, [id number] 12:58:22 Test Item Value Reference Range Interpretation Comments PH ARTERIAL (BEAKER) (test code = 7.38 7.35-7.45 383) PCO2 ARTERIAL (BEAKER) (test code 30 mm Hg 35-45 L = 384) PO2 ARTERIAL (BEAKER) (test code 252 mm Hg 80-90 H = 385) O2 SATURATION ARTERIAL (BEAKER) 99.6 % 96.0-97.0 H (test code = 386) HCO3 ARTERIAL (BEAKER) (test code 17 mmol/L 21-29 L = 388) BASE EXCESS ARTERIAL (BEAKER) -6.9 mmol/L -2.0-3.0 L (test code = 387) PATIENT TEMPERATURE (BEAKER) 37.7 (test code = 1818) FIO2 (BEAKER) (test code = 1819) 50.0 HGB/HCT (H&H)-Stat [id number] 12:58:11 Test Item Value Reference Range Interpretation Comments Hemoglobin (test code = 8.4 See_Comment L [Au tomated message] 718-7) The system ParAccel generated this result transmitted ref erence range: 12.0 - 1 5.0 GM/DL. The refe rence range was not u sed to interpret this result as normal/abnor mal. Hematocrit (test code = 25.0 % 36.0-45.0 L 4544-3) Lab Interpretation (test Abnormal code = 94591-2) [facility]Stat [id number] 12:58:11 Test Item Value Reference Range Interpretation Comments Hemoglobin (test code = 8.4 See_Comment L [Au tomated message] 718-7) The system [employer] generated this result transmitted ref erence range: 12.0 - 1 5.0 GM/DL. The refe rence range was not u sed to interpret this result as normal/abnor mal. Hematocrit (test code = 25.0 % 36.0-45.0 L 4544-3) Lab Interpretation (test Abnormal code = 59177-6) [facility]Stat [id number] 12:58:11 Test Item Value Reference Range Interpretation Comments Hemoglobin (test code = 8.4 See_Comment L [Au tomated message] 718-7) The system [employer] generated this result transmitted ref erence range: 12.0 - 1 5.0 GM/DL. The refe rence range was not u sed to interpret this result as normal/abnor mal. Hematocrit (test code = 25.0 % 36.0-45.0 L 4544-3) Lab Interpretation (test Abnormal code = 71018-0) [facility]Stat [id number] 12:58:11 Test Item Value Reference Range Interpretation Comments Hemoglobin (test code = 8.4 See_Comment L [Au tomated message] 718-7) The system [employer] generated this result transmitted ref erence range: 12.0 - 1 5.0 GM/DL. The refe rence range was not u sed to interpret this result as normal/abnor mal. Hematocrit (test code = 25.0 % 36.0-45.0 L 4544-3) Lab Interpretation (test Abnormal code = 08174-5) [facility] - STAT [id number] 12:58:11 Test Item Value Reference Range Interpretation Comments HEMOGLOBIN (BEAKER) (test code = 8.4 GM/DL 12.0-15.0 L 410) HEMATOCRIT (BEAKER) (test code = 25.0 % 36.0-45.0 L 411) Glucose-Stat [id number] 12:58:04 Test Item Value Reference Range Interpretation Comments Glucose (test code = 2345-7) 167 mg/dL 70-110 H Lab Interpretation (test code = Abnormal 68206-8) [facility] [id number] 12:58:04 Test Item Value Reference Range Interpretation Comments Sodium (test code = 2951-2) 143 meq/L 136-145 Lab Interpretation (test code = Normal 32962-6) [facility] HospitalPotassium-Stat [id number] 12:58:04 Test Item Value Reference Range Interpretation Comments Potassium (test code = 2823-3) 3.7 meq/L 3.6-5.5 Lab Interpretation (test code = Normal 77987-7) [facility] HospitalGlucose-Stat [id number] 12:58:04 Test Item Value Reference Range Interpretation Comments Glucose (test code = 2345-7) 167 mg/dL 70-110 H Lab Interpretation (test code = Abnormal 83428-6) [facility] [id number] 12:58:04 Test Item Value Reference Range Interpretation Comments Sodium (test code = 2951-2) 143 meq/L 136-145 Lab Interpretation (test code = Normal 12151-1) [facility]Potassium-Stat [id number] 12:58:04 Test Item Value Reference Range Interpretation Comments Potassium (test code = 2823-3) 3.7 meq/L 3.6-5.5 Lab Interpretation (test code = Normal 02364-2) [facility] HospitalGlucose-Stat [id number] 12:58:04 Test Item Value Reference Range Interpretation Comments Glucose (test code = 2345-7) 167 mg/dL 70-110 H Lab Interpretation (test code = Abnormal 65708-3) [facility] [id number] 12:58:04 Test Item Value Reference Range Interpretation Comments Sodium (test code = 2951-2) 143 meq/L 136-145 Lab Interpretation (test code = Normal 58632-0) [facility]Potassium-Stat [id number] 12:58:04 Test Item Value Reference Range Interpretation Comments Potassium (test code = 2823-3) 3.7 meq/L 3.6-5.5 Lab Interpretation (test code = Normal 81779-5) [facility] HospitalGlucose-Stat [id number] 12:58:04 Test Item Value Reference Range Interpretation Comments Glucose (test code = 2345-7) 167 mg/dL 70-110 H Lab Interpretation (test code = Abnormal 59114-6) [facility] [id number] 12:58:04 Test Item Value Reference Range Interpretation Comments Sodium (test code = 2951-2) 143 meq/L 136-145 Lab Interpretation (test code = Normal 24082-2) [facility] HospitalPotassium-Stat [id number] 12:58:04 Test Item Value Reference Range Interpretation Comments Potassium (test code = 2823-3) 3.7 meq/L 3.6-5.5 Lab Interpretation (test code = Normal 34387-3) [facility] HospitalGLUCOSE-STAT [id number] 12:58:04 Test Item Value Reference Range Interpretation Comments GLUCOSE RANDOM (BEAKER) (test code 167 mg/dL 70-110 H = 652) SODIUM NA-STAT [id number] 12:58:04 Test Item Value Reference Range Interpretation Comments SODIUM (BEAKER) (test code = 381) 143 meq/L 136-145 POTASSIUM-STAT [id number] 12:58:04 Test Item Value Reference Range Interpretation Comments POTASSIUM (BEAKER) (test code = 3.7 meq/L 3.6-5.5 379) CALCIUM, [id number] 10:38:10 Test Item Value Reference Range Interpretation Comments CALCIUM IONIZED (BEAKER) (test 1.18 mmol/L 1.12-1.27 code = 698) PH, BLOOD (BEAKER) (test code = 7.35 1810) BLOOD GAS, [id number] 10:36:56 Test Item Value Reference Range Interpretation Comments PH ARTERIAL (BEAKER) (test code = 7.37 7.35-7.45 383) PCO2 ARTERIAL (BEAKER) (test code 34 mm Hg 35-45 L = 384) PO2 ARTERIAL (BEAKER) (test code 258 mm Hg 80-90 H = 385) O2 SATURATION ARTERIAL (BEAKER) 99.6 % 96.0-97.0 H (test code = 386) HCO3 ARTERIAL (BEAKER) (test code 19 mmol/L 21-29 L = 388) BASE EXCESS ARTERIAL (BEAKER) -5.7 mmol/L -2.0-3.0 L (test code = 387) PATIENT TEMPERATURE (BEAKER) 35.9 (test code = 1818) FIO2 (BEAKER) (test code = 1819) 50.0 HGB/HCT (H&H) - STAT [id number] 10:36:50 Test Item Value Reference Range Interpretation Comments HEMOGLOBIN (BEAKER) (test code = 9.5 GM/DL 12.0-15.0 L 410) HEMATOCRIT (BEAKER) (test code = 28.0 % 36.0-45.0 L 411) FL FLUORO NON-SPECIFIC UP TO 1 [id number] 10:33:30 [facility] : 1965 Sex: FThis is a non- reportable study with no Radiologist dictation. Please refer to your PACS to review images, or Doc Flowsheets for documentation on studies without images. POTASSIUM-STAT [id number] 10:33:11 Test Item Value Reference Range Interpretation Comments POTASSIUM (BEAKER) (test code = 3.6 meq/L 3.6-5.5 379) GLUCOSE-STAT [id number] 10:33:10 Test Item Value Reference Range Interpretation Comments GLUCOSE RANDOM (BEAKER) (test code 144 mg/dL 70-110 H = 652) SODIUM NA-STAT [id number] 10:33:10 Test Item Value Reference Range Interpretation Comments SODIUM (BEAKER) (test code = 381) 143 meq/L 136-145 CALCIUM, [id number] 08:35:45 Test Item Value Reference Range Interpretation Comments CALCIUM IONIZED (BEAKER) (test 1.10 mmol/L 1.12-1.27 L code = 698) PH, BLOOD (BEAKER) (test code = 7.40 1810) BLOOD GAS, [id number] 08:35:04 Test Item Value Reference Range Interpretation Comments PH ARTERIAL (BEAKER) (test code = 7.42 7.35-7.45 383) PCO2 ARTERIAL (BEAKER) (test code 33 mm Hg 35-45 L = 384) PO2 ARTERIAL (BEAKER) (test code 253 mm Hg 80-90 H = 385) O2 SATURATION ARTERIAL (BEAKER) 99.6 % 96.0-97.0 H (test code = 386) HCO3 ARTERIAL (BEAKER) (test code 21 mmol/L 21-29 = 388) BASE EXCESS ARTERIAL (BEAKER) -3.2 mmol/L -2.0-3.0 L (test code = 387) PATIENT TEMPERATURE (BEAKER) 36.1 (test code = 1818) FIO2 (BEAKER) (test code = 1819) 50.0 HGB/HCT (H&H) - STAT [id number] 08:34:57 Test Item Value Reference Range Interpretation Comments HEMOGLOBIN (BEAKER) (test code = 10.6 GM/DL 12.0-15.0 L 410) HEMATOCRIT (BEAKER) (test code = 31.0 % 36.0-45.0 L 411) POTASSIUM-STAT [id number] 08:34:36 Test Item Value Reference Range Interpretation Comments POTASSIUM (BEAKER) (test code = 3.8 meq/L 3.6-5.5 379) GLUCOSE-STAT [id number] 08:34:36 Test Item Value Reference Range Interpretation Comments GLUCOSE RANDOM (BEAKER) (test code 122 mg/dL 70-110 H = 652) SODIUM NA-STAT COU2030-25-03 08:34:35 Test Item Value Reference Range Interpretation Comments SODIUM (BEAKER) (test code = 381) 141 meq/L 136-145 POCT-GLUCOSE [id number] 07:20:01 Test Item Value Reference Range Interpretation Comments POC-GLUCOSE METER 119 mg/dL 70-110 H : TESTED A T [facility] 6720 (BEAKER) (test code = BRADLEY DAVISON, 1538) 43316: Do All Operator/Techni pawan ID = [id number] for Sa rsoza, Gemma POCT , [id number] 07:07:00 Test Item Value Reference Range Interpretation Comments Test Urine, POC (test Negative code = 5243001) Control line present?, POC (test Yes code = 5788882) Background clear?, POC (test code Yes = 1221121) UPT Cassette Lot #, POC (test code 927196 = 7011238) UPT Cassette Expiration Date, POC 2024-11-08 (test code = 5431372) [id number]07:00 Test Item Value Reference Range Interpretation Comments Test Urine, POC (test Negative code = 5321955) Control line present?, POC (test Yes code = 6287996) Background clear?, POC (test code Yes = 3926295) UPT Cassette Lot #, POC (test code 774507 = 3921123) UPT Cassette Expiration Date, POC 2024-11-08 (test code = 6427290) [facility] [id number] 07:07:00 Test Item Value Reference Range Interpretation Comments Test Urine, POC (test Negative code = 1635941) Control line present?, POC (test Yes code = 0742657) Background clear?, POC (test code Yes = 0311986) UPT Cassette Lot #, POC (test code 547058 = 0619423) UPT Cassette Expiration Date, POC 2024-11-08 (test code = 7510530) [facility] [id number] 07:07:00 Test Item Value Reference Range Interpretation Comments Test Urine, POC (test Negative code = 7683355) Control line present?, POC (test Yes code = 4795901) Background clear?, POC (test code Yes = 7216436) UPT Cassette Lot #, POC (test code 175503 = 0676197) UPT Cassette Expiration Date, POC 2024-11-08 (test code = 2776278) [facility] [id number] 00:00:00 Test Item Value Reference Range Interpretation Comments UD KETONES (test code = 5 mg/dL 5-160 164786) UD GLUCOSE (test code = neg 100-2000 727342) UD PROTEIN (test code = 471324) UD LEUKOCYTES (test large Trace - Large @ 2 code = 531067) min. UD NITRITE (test code = neg Neg. - Pos. @ 60 399945) sec. UD UROBILINOGEN (test 0.2 mg/dL 0.2-8 code = 533445) UD PH (test code = 5.0 See_Comment [Automat ed 893323) message] The sy stem which generated this result transmitted reference range : 5.0 - 8.5 @ 60 sec.. The refer ence range was not u sed to interpret th is result as normal/abnormal . UD BLOOD (test code = large Neg. - Large @ 60 525845) sec. UD SPECIFIC GRAVITY 1.030 See_Comment [Automa delaney (test code = 382267) message ] The system which generated this result transmitted reference range : 1.000 - 1.030 @ 45 sec.. The refer ence range was not u sed to interpret th is result as normal/abnormal . UD BILIRUBIN (test code neg Neg. - Large @ 45 = 191168) sec. Lab Interpretation Abnormal (test code = 88478-8) Rachna Castañeda [facility]2022-10-30 16:40:00 Test Item Value Reference Range Interpretation Comments Glucose POC (test code = Glucose POC) 180 70-99 [place] 234982-10-30 16:40:00 Test Item Value Reference Range Interpretation Comments Gluc POC Comment 1 (test code Notified RN/MD = Gluc POC Comment 1) [place] 234982-10-30 16:40:00 Test Item Value Reference Range Interpretation Comments Glucose POC (test code = Glucose POC) 180 70- [place] 234982-10-30 16:40:00 Test Item Value Reference Range Interpretation Comments Gluc POC Comment 1 (test code Notified RN/MD = Gluc POC Comment 1) [place] 234982-10-30 16:40:00 Test Item Value Reference Range Interpretation Comments Glucose POC (test code = Glucose POC) 180 70 [place] 234982-10-30 16:40:00 Test Item Value Reference Range Interpretation Comments Gluc POC Comment 1 (test code Notified RN/MD = Gluc POC Comment 1) [place] 234982-10-30 16:40:00 Test Item Value Reference Range Interpretation Comments Glucose POC (test code = Glucose POC) 180 70 [place] 234982-10-30 16:40:00 Test Item Value Reference Range Interpretation Comments Gluc POC Comment 1 (test code Notified RN/MD = Gluc POC Comment 1) [place] 234982-10-30 16:40:00 Test Item Value Reference Range Interpretation Comments Glucose POC (test code = Glucose POC) 180 70- [place] 234982-10-30 16:40:00 Test Item Value Reference Range Interpretation Comments Gluc POC Comment 1 (test code Notified RN/MD = Gluc POC Comment 1) [place] 234982-10-30 16:40:00 Test Item Value Reference Range Interpretation Comments Glucose POC (test code = Glucose POC) 180 70- [place] 234982-10-30 16:40:00 Test Item Value Reference Range Interpretation Comments Gluc POC Comment 1 (test code Notified RN/MD = Gluc POC Comment 1) [place] 234982-10-30 16:40:00 Test Item Value Reference Range Interpretation Comments Glucose POC (test code = Glucose POC) 180 70- [place] 234982-10-30 16:40:00 Test Item Value Reference Range Interpretation Comments Gluc POC Comment 1 (test code Notified RN/MD = Gluc POC Comment 1) [place] 234982-10-30 16:40:00 Test Item Value Reference Range Interpretation Comments Glucose POC (test code = Glucose POC) 180 70 [place] 234982-10-30 16:40:00 Test Item Value Reference Range Interpretation Comments Gluc POC Comment 1 (test code Notified RN/MD = Gluc POC Comment 1) [place] 234982-10-30 16:40:00 Test Item Value Reference Range Interpretation Comments Glucose POC (test code = Glucose POC) 180 70 [place] 234982-10-30 16:40:00 Test Item Value Reference Range Interpretation Comments Gluc POC Comment 1 (test code Notified RN/MD = Gluc POC Comment 1) [place] 234982-10-30 16:40:00 Test Item Value Reference Range Interpretation Comments Glucose POC (test code = Glucose POC) 180 [place] 234982-10-30 16:40:00 Test Item Value Reference Range Interpretation Comments Gluc POC Comment 1 (test code Notified RN/MD = Gluc POC Comment 1) [place] 234982-10-30 16:40:00 Test Item Value Reference Range Interpretation Comments Glucose POC (test code = Glucose POC) 180 [place] 234982-10-30 16:40:00 Test Item Value Reference Range Interpretation Comments Gluc POC Comment 1 (test code Notified RN/MD = Gluc POC Comment 1) [place] 234982-10-30 16:40:00 Test Item Value Reference Range Interpretation Comments Glucose POC (test code = Glucose POC) 180 70 [facility]2022-10-30 16:40:00 Test Item Value Reference Range Interpretation Comments Gluc POC Comment 1 (test code Notified RN/MD = Gluc POC Comment 1) [place] 234982-10-30 16:40:00 Test Item Value Reference Range Interpretation Comments Glucose POC (test code = Glucose POC) 180 [place] 234982-10-30 16:40:00 Test Item Value Reference Range Interpretation Comments Gluc POC Comment 1 (test code Notified RN/MD = Gluc POC Comment 1) [place] 234982-10-30 16:40:00 Test Item Value Reference Range Interpretation Comments Glucose POC (test code = Glucose POC) 180 [facility]2022-10-30 16:40:00 Test Item Value Reference Range Interpretation Comments Gluc POC Comment 1 (test code Notified RN/MD = Gluc POC Comment 1) [facility]2022-10-30 16:40:00 Test Item Value Reference Range Interpretation Comments Glucose POC (test code = Glucose POC) 180 [facility]2022-10-30 16:40:00 Test Item Value Reference Range Interpretation Comments Gluc POC Comment 1 (test code Notified RN/MD = Gluc POC Comment 1) [facility]2022-10-30 16:40:00 Test Item Value Reference Range Interpretation Comments Glucose POC (test code = Glucose POC) 180 [facility]2022-10-30 16:40:00 Test Item Value Reference Range Interpretation Comments Gluc POC Comment 1 (test code Notified RN/MD = Gluc POC Comment 1) [facility]2022-10-30 16:40:00 Test Item Value Reference Range Interpretation Comments Glucose POC (test code = Glucose POC) 180 [facility]2022-10-30 16:40:00 Test Item Value Reference Range Interpretation Comments Gluc POC Comment 1 (test code Notified RN/MD = Gluc POC Comment 1) [facility]2022-10-30 16:40:00 Test Item Value Reference Range Interpretation Comments Glucose POC (test code = Glucose POC) 180 [facility]2022-10-30 16:40:00 Test Item Value Reference Range Interpretation Comments Gluc POC Comment 1 (test code Notified RN/MD = Gluc POC Comment 1) [place] 234982-10-30 16:40:00 Test Item Value Reference Range Interpretation Comments Glucose POC (test code = Glucose POC) 180 [facility]2022-10-30 16:40:00 Test Item Value Reference Range Interpretation Comments Gluc POC Comment 1 (test code Notified RN/MD = Gluc POC Comment 1) [facility]2022-10-30 16:40:00 Test Item Value Reference Range Interpretation Comments Glucose POC (test code = Glucose POC) 180 [place] 234982-10-30 16:40:00 Test Item Value Reference Range Interpretation Comments Gluc POC Comment 1 (test code Notified RN/MD = Gluc POC Comment 1) [place] 234982-10-30 16:40:00 Test Item Value Reference Range Interpretation Comments Glucose POC (test code = Glucose POC) 180 70- [place] 234982-10-30 16:40:00 Test Item Value Reference Range Interpretation Comments Gluc POC Comment 1 (test code Notified RN/MD = Gluc POC Comment 1) [place] 234982-10-30 16:40:00 Test Item Value Reference Range Interpretation Comments Glucose POC (test code = Glucose POC) 180 70 [place] 234982-10-30 16:40:00 Test Item Value Reference Range Interpretation Comments Gluc POC Comment 1 (test code Notified RN/MD = Gluc POC Comment 1) [place] 234982-10-30 16:40:00 Test Item Value Reference Range Interpretation Comments Glucose POC (test code = Glucose POC) 180 [place] 234982-10-30 16:40:00 Test Item Value Reference Range Interpretation Comments Gluc POC Comment 1 (test code Notified RN/MD = Gluc POC Comment 1) [place] 234982-10-30 16:40:00 Test Item Value Reference Range Interpretation Comments Glucose POC (test code = Glucose POC) 180 70 [place] 234982-10-30 16:40:00 Test Item Value Reference Range Interpretation Comments Gluc POC Comment 1 (test code Notified RN/MD = Gluc POC Comment 1) [place] 234982-10-30 16:40:00 Test Item Value Reference Range Interpretation Comments Glucose POC (test code = Glucose POC) 180 70 [place] 234982-10-30 16:40:00 Test Item Value Reference Range Interpretation Comments Gluc POC Comment 1 (test code Notified RN/MD = Gluc POC Comment 1) [place] 234982-10-30 16:40:00 Test Item Value Reference Range Interpretation Comments Glucose POC (test code = Glucose POC) 180 70 [place] 234982-10-30 16:40:00 Test Item Value Reference Range Interpretation Comments Gluc POC Comment 1 (test code Notified RN/MD = Gluc POC Comment 1) [place] 234982-10-30 16:40:00 Test Item Value Reference Range Interpretation Comments Glucose POC (test code = Glucose POC) 180 70 [place] 234982-10-30 16:40:00 Test Item Value Reference Range Interpretation Comments Gluc POC Comment 1 (test code Notified RN/MD = Gluc POC Comment 1) [place] 234982-10-30 16:40:00 Test Item Value Reference Range Interpretation Comments Glucose POC (test code = Glucose POC) 180 70 [place] 234982-10-30 16:40:00 Test Item Value Reference Range Interpretation Comments Gluc POC Comment 1 (test code Notified RN/MD = Gluc POC Comment 1) [place] 234982-10-30 16:40:00 Test Item Value Reference Range Interpretation Comments Glucose POC (test code = Glucose POC) 180 [place] 234982-10-30 16:40:00 Test Item Value Reference Range Interpretation Comments Gluc POC Comment 1 (test code Notified RN/MD = Gluc POC Comment 1) [facility]2022-10-30 16:40:00 Test Item Value Reference Range Interpretation Comments Glucose POC (test code = Glucose POC) 180 70 [facility]2022-10-30 16:40:00 Test Item Value Reference Range Interpretation Comments Gluc POC Comment 1 (test code Notified RN/MD = Gluc POC Comment 1) [place] 234982-10-30 16:40:00 Test Item Value Reference Range Interpretation Comments Glucose POC (test code = Glucose POC) 180 70 [facility]2022-10-30 16:40:00 Test Item Value Reference Range Interpretation Comments Gluc POC Comment 1 (test code Notified RN/MD = Gluc POC Comment 1) [place] 234982-10-30 16:40:00 Test Item Value Reference Range Interpretation Comments Glucose POC (test code = Glucose POC) 180 70 [place] 234982-10-30 16:40:00 Test Item Value Reference Range Interpretation Comments Gluc POC Comment 1 (test code Notified RN/MD = Gluc POC Comment 1) [place] 234982-10-30 16:40:00 Test Item Value Reference Range Interpretation Comments Glucose POC (test code = Glucose POC) 180 [place] 234982-10-30 16:40:00 Test Item Value Reference Range Interpretation Comments Gluc POC Comment 1 (test code Notified RN/MD = Gluc POC Comment 1) [place] 234982-10-30 16:40:00 Test Item Value Reference Range Interpretation Comments Glucose POC (test code = Glucose POC) 180 [facility]2022-10-30 16:40:00 Test Item Value Reference Range Interpretation Comments Gluc POC Comment 1 (test code Notified RN/MD = Gluc POC Comment 1) [place] 234982-10-30 16:40:00 Test Item Value Reference Range Interpretation Comments Glucose POC (test code = Glucose POC) 180 [place] 234982-10-30 16:40:00 Test Item Value Reference Range Interpretation Comments Gluc POC Comment 1 (test code Notified RN/MD = Gluc POC Comment 1) [facility]2022-10-30 16:40:00 Test Item Value Reference Range Interpretation Comments Glucose POC (test code = Glucose POC) 180 [facility]2022-10-30 16:40:00 Test Item Value Reference Range Interpretation Comments Gluc POC Comment 1 (test code Notified RN/MD = Gluc POC Comment 1) [facility]2022-10-30 16:40:00 Test Item Value Reference Range Interpretation Comments Glucose POC (test code = Glucose POC) 180 [facility]2022-10-30 16:40:00 Test Item Value Reference Range Interpretation Comments Gluc POC Comment 1 (test code Notified RN/MD = Gluc POC Comment 1) [place] 234982-10-30 16:40:00 Test Item Value Reference Range Interpretation Comments Glucose POC (test code = Glucose POC) 180 [place] 234982-10-30 16:40:00 Test Item Value Reference Range Interpretation Comments Gluc POC Comment 1 (test code Notified RN/MD = Gluc POC Comment 1) [place] 234982-10-30 16:40:00 Test Item Value Reference Range Interpretation Comments Glucose POC (test code = Glucose POC) 180 [place] 768[address]-10-30 16:40:00 Test Item Value Reference Range Interpretation Comments Gluc POC Comment 1 (test code Notified RN/MD = Gluc POC Comment 1) [place] 234982-10-30 16:40:00 Test Item Value Reference Range Interpretation Comments Glucose POC (test code = Glucose POC) 180 70 [place] 234982-10-30 16:40:00 Test Item Value Reference Range Interpretation Comments Gluc POC Comment 1 (test code Notified RN/MD = Gluc POC Comment 1) [place] 234982-10-30 16:40:00 Test Item Value Reference Range Interpretation Comments Glucose POC (test code = Glucose POC) 180 [place] 234982-10-30 16:40:00 Test Item Value Reference Range Interpretation Comments Gluc POC Comment 1 (test code Notified RN/MD = Gluc POC Comment 1) [place] 234982-10-30 16:40:00 Test Item Value Reference Range Interpretation Comments Glucose POC (test code = Glucose POC) 180 [place] 234982-10-30 16:40:00 Test Item Value Reference Range Interpretation Comments Gluc POC Comment 1 (test code Notified RN/MD = Gluc POC Comment 1) [place] 234982-10-30 16:40:00 Test Item Value Reference Range Interpretation Comments Glucose POC (test code = Glucose POC) 180 [place] 234982-10-30 16:40:00 Test Item Value Reference Range Interpretation Comments Gluc POC Comment 1 (test code Notified RN/MD = Gluc POC Comment 1) [place] 234982-10-30 16:40:00 Test Item Value Reference Range Interpretation Comments Glucose POC (test code = Glucose POC) 180 [place] 234982-10-30 16:40:00 Test Item Value Reference Range Interpretation Comments Gluc POC Comment 1 (test code Notified RN/MD = Gluc POC Comment 1) [place] 234982-10-30 16:40:00 Test Item Value Reference Range Interpretation Comments Glucose POC (test code = Glucose POC) 180 [place] 234982-10-30 16:40:00 Test Item Value Reference Range Interpretation Comments Gluc POC Comment 1 (test code Notified RN/MD = Gluc POC Comment 1) [place] 234982-10-30 16:40:00 Test Item Value Reference Range Interpretation Comments Glucose POC (test code = Glucose POC) 180 70- [place] 234982-10-30 16:40:00 Test Item Value Reference Range Interpretation Comments Gluc POC Comment 1 (test code Notified RN/MD = Gluc POC Comment 1) [place] 234982-10-30 16:40:00 Test Item Value Reference Range Interpretation Comments Glucose POC (test code = Glucose POC) 180 70 [place] 234982-10-30 16:40:00 Test Item Value Reference Range Interpretation Comments Gluc POC Comment 1 (test code Notified RN/MD = Gluc POC Comment 1) [place] 234982-10-30 16:40:00 Test Item Value Reference Range Interpretation Comments Glucose POC (test code = Glucose POC) 180 70 [place] 234982-10-30 16:40:00 Test Item Value Reference Range Interpretation Comments Gluc POC Comment 1 (test code Notified RN/MD = Gluc POC Comment 1) [facility]2022-10-30 16:40:00 Test Item Value Reference Range Interpretation Comments Glucose POC (test code = Glucose POC) 180 70 [place] 234982-10-30 16:40:00 Test Item Value Reference Range Interpretation Comments Gluc POC Comment 1 (test code Notified RN/MD = Gluc POC Comment 1) [place] 234982-10-30 16:40:00 Test Item Value Reference Range Interpretation Comments Glucose POC (test code = Glucose POC) 180 70- [facility]2022-10-30 16:40:00 Test Item Value Reference Range Interpretation Comments Gluc POC Comment 1 (test code Notified RN/MD = Gluc POC Comment 1) [place] 234982-10-30 16:40:00 Test Item Value Reference Range Interpretation Comments Glucose POC (test code = Glucose POC) 180 70 [place] 234982-10-30 16:40:00 Test Item Value Reference Range Interpretation Comments Gluc POC Comment 1 (test code Notified RN/MD = Gluc POC Comment 1) [place] 234982-10-30 16:40:00 Test Item Value Reference Range Interpretation Comments Glucose POC (test code = Glucose POC) 180 [place] 234982-10-30 16:40:00 Test Item Value Reference Range Interpretation Comments Gluc POC Comment 1 (test code Notified RN/MD = Gluc POC Comment 1) [place] 234982-10-30 16:40:00 Test Item Value Reference Range Interpretation Comments Glucose POC (test code = Glucose POC) 180 [facility]2022-10-30 16:40:00 Test Item Value Reference Range Interpretation Comments Gluc POC Comment 1 (test code Notified RN/MD = Gluc POC Comment 1) [facility]2022-10-30 16:40:00 Test Item Value Reference Range Interpretation Comments Glucose POC (test code = Glucose POC) 180 [facility]2022-10-30 16:40:00 Test Item Value Reference Range Interpretation Comments Gluc POC Comment 1 (test code Notified RN/MD = Gluc POC Comment 1) [facility]2022-10-30 16:40:00 Test Item Value Reference Range Interpretation Comments Glucose POC (test code = Glucose POC) 180 [facility]2022-10-30 16:40:00 Test Item Value Reference Range Interpretation Comments Gluc POC Comment 1 (test code Notified RN/MD = Gluc POC Comment 1) [facility]2022-10-30 16:40:00 Test Item Value Reference Range Interpretation Comments Glucose POC (test code = Glucose POC) 180 [facility]2022-10-30 16:40:00 Test Item Value Reference Range Interpretation Comments Gluc POC Comment 1 (test code Notified RN/MD = Gluc POC Comment 1) [place] 234982-10-30 16:40:00 Test Item Value Reference Range Interpretation Comments Glucose POC (test code = Glucose POC) 180 [facility]2022-10-30 16:40:00 Test Item Value Reference Range Interpretation Comments Gluc POC Comment 1 (test code Notified RN/MD = Gluc POC Comment 1) [facility]2022-10-30 16:40:00 Test Item Value Reference Range Interpretation Comments Glucose POC (test code = Glucose POC) 180 [place] 234982-10-30 16:40:00 Test Item Value Reference Range Interpretation Comments Gluc POC Comment 1 (test code Notified RN/MD = Gluc POC Comment 1) [place] 234982-10-30 16:40:00 Test Item Value Reference Range Interpretation Comments Glucose POC (test code = Glucose POC) 180 [place] 234982-10-30 16:40:00 Test Item Value Reference Range Interpretation Comments Gluc POC Comment 1 (test code Notified RN/MD = Gluc POC Comment 1) [place] 234982-10-30 16:40:00 Test Item Value Reference Range Interpretation Comments Glucose POC (test code = Glucose POC) 180 [place] 234982-10-30 16:40:00 Test Item Value Reference Range Interpretation Comments Gluc POC Comment 1 (test code Notified RN/MD = Gluc POC Comment 1) [place] 234982-10-30 16:40:00 Test Item Value Reference Range Interpretation Comments Glucose POC (test code = Glucose POC) 180 [place] 234982-10-30 16:40:00 Test Item Value Reference Range Interpretation Comments Gluc POC Comment 1 (test code Notified RN/MD = Gluc POC Comment 1) [place] 234982-10-30 16:40:00 Test Item Value Reference Range Interpretation Comments Glucose POC (test code = Glucose POC) 180 [place] 234982-10-30 16:40:00 Test Item Value Reference Range Interpretation Comments Gluc POC Comment 1 (test code Notified RN/MD = Gluc POC Comment 1) [place] 234982-10-30 16:40:00 Test Item Value Reference Range Interpretation Comments Glucose POC (test code = Glucose POC) 180 [place] 234982-10-30 16:40:00 Test Item Value Reference Range Interpretation Comments Gluc POC Comment 1 (test code Notified RN/MD = Gluc POC Comment 1) [place] 234982-10-30 16:40:00 Test Item Value Reference Range Interpretation Comments Glucose POC (test code = Glucose POC) 180 [place] 234982-10-30 16:40:00 Test Item Value Reference Range Interpretation Comments Gluc POC Comment 1 (test code Notified RN/MD = Gluc POC Comment 1) [place] 234982-10-30 16:40:00 Test Item Value Reference Range Interpretation Comments Glucose POC (test code = Glucose POC) 180 70- [place] 234982-10-30 16:40:00 Test Item Value Reference Range Interpretation Comments Gluc POC Comment 1 (test code Notified RN/MD = Gluc POC Comment 1) [place] 234982-10-30 16:40:00 Test Item Value Reference Range Interpretation Comments Glucose POC (test code = Glucose POC) 180 70 [place] 234982-10-30 16:40:00 Test Item Value Reference Range Interpretation Comments Gluc POC Comment 1 (test code Notified RN/MD = Gluc POC Comment 1) [place] 234982-10-30 16:40:00 Test Item Value Reference Range Interpretation Comments Glucose POC (test code = Glucose POC) 180 70 [place] 234982-10-30 16:40:00 Test Item Value Reference Range Interpretation Comments Gluc POC Comment 1 (test code Notified RN/MD = Gluc POC Comment 1) [place] 234982-10-30 16:40:00 Test Item Value Reference Range Interpretation Comments Glucose POC (test code = Glucose POC) 180 70- [place] 234982-10-30 16:40:00 Test Item Value Reference Range Interpretation Comments Gluc POC Comment 1 (test code Notified RN/MD = Gluc POC Comment 1) [place] 234982-10-30 16:40:00 Test Item Value Reference Range Interpretation Comments Glucose POC (test code = Glucose POC) 180 70- [place] 234982-10-30 16:40:00 Test Item Value Reference Range Interpretation Comments Gluc POC Comment 1 (test code Notified RN/MD = Gluc POC Comment 1) [place] 234982-10-30 16:40:00 Test Item Value Reference Range Interpretation Comments Glucose POC (test code = Glucose POC) 180 70- [place] 234982-10-30 16:40:00 Test Item Value Reference Range Interpretation Comments Gluc POC Comment 1 (test code Notified RN/MD = Gluc POC Comment 1) [place] 234982-10-30 16:40:00 Test Item Value Reference Range Interpretation Comments Glucose POC (test code = Glucose POC) 180 [place] 234982-10-30 16:40:00 Test Item Value Reference Range Interpretation Comments Gluc POC Comment 1 (test code Notified RN/MD = Gluc POC Comment 1) [place] 234982-10-30 16:40:00 Test Item Value Reference Range Interpretation Comments Glucose POC (test code = Glucose POC) 180 [facility]2022-10-30 16:40:00 Test Item Value Reference Range Interpretation Comments Gluc POC Comment 1 (test code Notified RN/MD = Gluc POC Comment 1) [place] 234982-10-30 16:40:00 Test Item Value Reference Range Interpretation Comments Glucose POC (test code = Glucose POC) 180 [facility]2022-10-30 16:40:00 Test Item Value Reference Range Interpretation Comments Gluc POC Comment 1 (test code Notified RN/MD = Gluc POC Comment 1) [facility]2022-10-30 16:40:00 Test Item Value Reference Range Interpretation Comments Glucose POC (test code = Glucose POC) 180 [facility]2022-10-30 16:40:00 Test Item Value Reference Range Interpretation Comments Gluc POC Comment 1 (test code Notified RN/MD = Gluc POC Comment 1) [facility]2022-10-30 16:40:00 Test Item Value Reference Range Interpretation Comments Glucose POC (test code = Glucose POC) 180 [facility]2022-10-30 16:40:00 Test Item Value Reference Range Interpretation Comments Gluc POC Comment 1 (test code Notified RN/MD = Gluc POC Comment 1) [place] 234982-10-30 16:40:00 Test Item Value Reference Range Interpretation Comments Glucose POC (test code = Glucose POC) 180 [place] 234982-10-30 16:40:00 Test Item Value Reference Range Interpretation Comments Gluc POC Comment 1 (test code Notified RN/MD = Gluc POC Comment 1) [place] 234982-10-30 16:40:00 Test Item Value Reference Range Interpretation Comments Glucose POC (test code = Glucose POC) 180 [place] 234982-10-30 16:40:00 Test Item Value Reference Range Interpretation Comments Gluc POC Comment 1 (test code Notified RN/MD = Gluc POC Comment 1) [place] 234982-10-30 16:40:00 Test Item Value Reference Range Interpretation Comments Glucose POC (test code = Glucose POC) 180 70- [place] 234982-10-30 16:40:00 Test Item Value Reference Range Interpretation Comments Gluc POC Comment 1 (test code Notified RN/MD = Gluc POC Comment 1) [place] 234982-10-30 16:40:00 Test Item Value Reference Range Interpretation Comments Glucose POC (test code = Glucose POC) 180 [place] 234982-10-30 16:40:00 Test Item Value Reference Range Interpretation Comments Gluc POC Comment 1 (test code Notified RN/MD = Gluc POC Comment 1) [place] 234982-10-30 16:40:00 Test Item Value Reference Range Interpretation Comments Glucose POC (test code = Glucose POC) 180 [place] 234982-10-30 16:40:00 Test Item Value Reference Range Interpretation Comments Gluc POC Comment 1 (test code Notified RN/MD = Gluc POC Comment 1) [place] 234982-10-30 16:40:00 Test Item Value Reference Range Interpretation Comments Glucose POC (test code = Glucose POC) 180 70 [place] 234982-10-30 16:40:00 Test Item Value Reference Range Interpretation Comments Gluc POC Comment 1 (test code Notified RN/MD = Gluc POC Comment 1) [place] 234982-10-30 16:40:00 Test Item Value Reference Range Interpretation Comments Glucose POC (test code = Glucose POC) 180 70 [place] 234982-10-30 16:40:00 Test Item Value Reference Range Interpretation Comments Gluc POC Comment 1 (test code Notified RN/MD = Gluc POC Comment 1) [place] 234982-10-30 16:40:00 Test Item Value Reference Range Interpretation Comments Glucose POC (test code = Glucose POC) 180 70 [place] 234982-10-30 16:40:00 Test Item Value Reference Range Interpretation Comments Gluc POC Comment 1 (test code Notified RN/MD = Gluc POC Comment 1) [place] 234982-10-30 16:40:00 Test Item Value Reference Range Interpretation Comments Glucose POC (test code = Glucose POC) 180 70 [place] 234982-10-30 16:40:00 Test Item Value Reference Range Interpretation Comments Gluc POC Comment 1 (test code Notified RN/MD = Gluc POC Comment 1) [place] 234982-10-30 16:40:00 Test Item Value Reference Range Interpretation Comments Glucose POC (test code = Glucose POC) 180 [place] 234982-10-30 16:40:00 Test Item Value Reference Range Interpretation Comments Glucose POC (test code = Glucose POC) 180 [place] 234982-10-30 16:40:00 Test Item Value Reference Range Interpretation Comments Gluc POC Comment 1 (test code Notified RN/MD = Gluc POC Comment 1) [place] 234982-10-30 16:40:00 Test Item Value Reference Range Interpretation Comments Gluc POC Comment 1 (test code Notified RN/MD = Gluc POC Comment 1) [place] 234982-10-30 16:40:00 Test Item Value Reference Range Interpretation Comments Glucose POC (test code = Glucose POC) 180 [place] 234982-10-30 16:40:00 Test Item Value Reference Range Interpretation Comments Gluc POC Comment 1 (test code Notified RN/MD = Gluc POC Comment 1) [place] 234982-10-30 16:40:00 Test Item Value Reference Range Interpretation Comments Glucose POC (test code = Glucose POC) 180 [place] 234982-10-30 16:40:00 Test Item Value Reference Range Interpretation Comments Gluc POC Comment 1 (test code Notified RN/MD = Gluc POC Comment 1) [place] 234982-10-30 16:40:00 Test Item Value Reference Range Interpretation Comments Glucose POC (test code = Glucose POC) 180 [place] 234982-10-30 16:40:00 Test Item Value Reference Range Interpretation Comments Gluc POC Comment 1 (test code Notified RN/MD = Gluc POC Comment 1) [place] 234982-10-30 16:40:00 Test Item Value Reference Range Interpretation Comments Glucose POC (test code = Glucose POC) 180 70 [facility]2022-10-30 16:40:00 Test Item Value Reference Range Interpretation Comments Gluc POC Comment 1 (test code Notified RN/MD = Gluc POC Comment 1) [place] 234982-10-30 16:40:00 Test Item Value Reference Range Interpretation Comments Glucose POC (test code = Glucose POC) 180 [facility]2022-10-30 16:40:00 Test Item Value Reference Range Interpretation Comments Gluc POC Comment 1 (test code Notified RN/MD = Gluc POC Comment 1) [facility]2022-10-30 16:40:00 Test Item Value Reference Range Interpretation Comments Glucose POC (test code = Glucose POC) 180 [place] 234982-10-30 16:40:00 Test Item Value Reference Range Interpretation Comments Gluc POC Comment 1 (test code Notified RN/MD = Gluc POC Comment 1) [facility]2022-10-30 16:40:00 Test Item Value Reference Range Interpretation Comments Glucose POC (test code = Glucose POC) 180 70 [facility]2022-10-30 16:40:00 Test Item Value Reference Range Interpretation Comments Gluc POC Comment 1 (test code Notified RN/MD = Gluc POC Comment 1) [facility] 10:15:00 Test Item Value Reference Range Interpretation Comments Basophils # (test code = Basophils #) 0.1 <=0.2 [facility] CenterTfqdkbiEBQSLNMLP0153-70-77 10:15:00 Test Item Value Reference Range Interpretation Comments Glucose Lvl (test code = Glucose Lvl) 141 70 [facility] CenterCzgwsmaIGZWRMLTV5166-54-51 10:15:00 Test Item Value Reference Range Interpretation Comments BUN (test code = BUN) 12 7-22 [facility] CenterCbhyujaZLMOCUPWZ0067-44-43 10:15:00 Test Item Value Reference Range Interpretation Comments Creatinine Lvl (test code = Creatinine 0.42 0.50-1.40 Lvl) [facility] CenterPjvvwdhYVSNDZNQU0827-29-42 10:15:00 Test Item Value Reference Range Interpretation Comments Sodium Lvl (test code = Sodium Lvl) 135 135-145 [place] 223672-10-30 10:15:00 Test Item Value Reference Range Interpretation Comments Potassium Lvl (test code = Potassium 4.2 3.5-5.1 Lvl) [facility] CenterNdfvhgmUUZRWZPPV7593-12-96 10:15:00 Test Item Value Reference Range Interpretation Comments Chloride Lvl (test code = Chloride Lvl) 101 95-109 [facility] CenterEaatgydVIVNSTMEW9812-78-64 10:15:00 Test Item Value Reference Range Interpretation Comments CO2 (test code = CO2) 30 24-32 [facility] CenterIfkfqjiFCMJZGEFF1572-06-75 10:15:00 Test Item Value Reference Range Interpretation Comments AGAP (test code = AGAP) 8.2 10.0-20.0 [facility] CenterTxtzzrqTNFSLVQKA2856-85-03 10:15:00 Test Item Value Reference Range Interpretation Comments Calcium Lvl (test code = Calcium Lvl) 8.9 8.5-10.5 [facility] CenterGyhpxtdJXSHBIZTE4605-88-52 10:15:00 Test Item Value Reference Range Interpretation Comments eGFR (test code = eGFR) 116 [facility] CenterBmgbrrzZWQITGKFJ4437-21-32 10:15:00 Test Item Value Reference Range Interpretation Comments Magnesium Lvl (test code = Magnesium 1.9 1.8-2.4 Lvl) [facility] CenterLvpnmwlASXLLZANX4978-45-11 10:15:00 Test Item Value Reference Range Interpretation Comments Phosphorus (test code = Phosphorus) 4.2 2.5-4.5 [facility] CenterGjekvmiDWEMJJDAJ0612-34-50 10:15:00 Test Item Value Reference Range Interpretation Comments Ca Ion WB (test code = Ca Ion WB) 1.23 1.05-1.25 [facility] CenterLhrasdcUCSFLLSGD4815-47-71 10:15:00 Test Item Value Reference Range Interpretation Comments Ca Ion at pH 7.4 WB (test code = Ca Ion 1.19 1.05-1.25 at pH 7.4 WB) [facility]CtyupcjSAIBXSTCEG1972-04-43 10:15:00 Test Item Value Reference Range Interpretation Comments WBC (test code = WBC) 10.9 3.7-10.4 [facility] HospitalYclbyrpAVMONMJFMC5339-06-96 10:15:00 Test Item Value Reference Range Interpretation Comments RBC (test code = RBC) 2.89 4.20-5.40 [facility] HospitalBnajvqlWREJZQGLET7342-45-63 10:15:00 Test Item Value Reference Range Interpretation Comments Hgb (test code = Hgb) 8.2 12.0-16.0 [facility] HospitalLqbwdlgRMELYHNDXC5175-14-43 10:15:00 Test Item Value Reference Range Interpretation Comments Hct (test code = Hct) 24.5 36.0-48.0 [facility] HospitalLeisczeTQHFPTKZZT8075-34-13 10:15:00 Test Item Value Reference Range Interpretation Comments MCV (test code = MCV) 84.7 80.0-98.0 [facility] HospitalQbemymyGCQQVBMJMJ0225-85-97 10:15:00 Test Item Value Reference Range Interpretation Comments MCH (test code = MCH) 28.4 pg 27.0-31.0 [facility] HospitalCeosjpbZSKMMWIPQJ4526-20-38 10:15:00 Test Item Value Reference Range Interpretation Comments MCHC (test code = MCHC) 33.5 32.0-36.0 [facility] HospitalWpvnlfkNGDBLUFJPQ4253-57-83 10:15:00 Test Item Value Reference Range Interpretation Comments RDW (test code = RDW) 13.5 11.5-14.5 [facility] HospitalOzzsgukLYGRPAKOEF9728-54-42 10:15:00 Test Item Value Reference Range Interpretation Comments Platelet (test code = Platelet) 459 133-450 [facility] HospitalKrwtudrGOFMAGFNPF1520-43-35 10:15:00 Test Item Value Reference Range Interpretation Comments MPV (test code = MPV) 8.1 7.4-10.4 [facility] HospitalKludtnbWKFZYOWTHJ3511-59-86 10:15:00 Test Item Value Reference Range Interpretation Comments Segs (test code = Segs) 59.9 45.0-75.0 [facility] HospitalEbywsumZVVDXIPAAW5183-33-54 10:15:00 Test Item Value Reference Range Interpretation Comments Lymphocytes (test code = Lymphocytes) 31.3 20.0-40.0 [place] 406462-10-30 10:15:00 Test Item Value Reference Range Interpretation Comments Monocytes (test code = Monocytes) 4.9 2.0-12.0 [place] 406462-10-30 10:15:00 Test Item Value Reference Range Interpretation Comments Eosinophils (test code = Eosinophils) 3.3 <=4.0 [facility] HospitalAihujypXEIWGBLSJR7616-50-16 10:15:00 Test Item Value Reference Range Interpretation Comments Basophils (test code = Basophils) 0.6 <=1.0 [facility] HospitalKfxelwrFEIRQPPUVW0151-02-93 10:15:00 Test Item Value Reference Range Interpretation Comments Neutrophils # (test code = Neutrophils 6.5 1.5-8.1 #) [facility] HospitalXeobgeeJJHCUFVPPJ2775-73-35 10:15:00 Test Item Value Reference Range Interpretation Comments Lymphocytes # (test code = Lymphocytes 3.4 1.0-5.5 #) [facility] HospitalMcezvxwCFEVFUQVJC2015-05-82 10:15:00 Test Item Value Reference Range Interpretation Comments Monocytes # (test code = Monocytes #) 0.5 <=0.8 [place] 406462-10-30 10:15:00 Test Item Value Reference Range Interpretation Comments Eosinophils # (test code = Eosinophils 0.4 <=0.5 #) [facility] CenterRkdfmkbVKWWGCKCZ4593-14-17 10:15:00 Test Item Value Reference Range Interpretation Comments Glucose Lvl (test code = Glucose Lvl) 141 70-99 [facility] CenterNulchfqXATQHTXIX8589-50-79 10:15:00 Test Item Value Reference Range Interpretation Comments BUN (test code = BUN) 12 7-22 [facility] CenterClobmssZWLZICBQF5287-14-31 10:15:00 Test Item Value Reference Range Interpretation Comments Creatinine Lvl (test code = Creatinine 0.42 0.50-1.40 Lvl) [facility] CenterCtaivdqAPVYCRWPG3457-04-95 10:15:00 Test Item Value Reference Range Interpretation Comments Sodium Lvl (test code = Sodium Lvl) 135 135-145 [facility] CenterPammjkzUPLJDBHNP4409-49-00 10:15:00 Test Item Value Reference Range Interpretation Comments Potassium Lvl (test code = Potassium 4.2 3.5-5.1 Lvl) [facility] CenterGjdumluSHMHUCKAN9474-18-48 10:15:00 Test Item Value Reference Range Interpretation Comments Chloride Lvl (test code = Chloride Lvl) 101 95-109 [facility] CenterRprxhztDEFVIJWMK2979-47-80 10:15:00 Test Item Value Reference Range Interpretation Comments CO2 (test code = CO2) 30 24-32 [facility] CenterIcgqgbbXZRQDBOEE8047-69-24 10:15:00 Test Item Value Reference Range Interpretation Comments AGAP (test code = AGAP) 8.2 10.0-20.0 [facility] CenterIpycenzGZLFPTRHC1709-27-08 10:15:00 Test Item Value Reference Range Interpretation Comments Calcium Lvl (test code = Calcium Lvl) 8.9 8.5-10.5 [facility] CenterInzfvahOCKKTWOOP7802-47-58 10:15:00 Test Item Value Reference Range Interpretation Comments eGFR (test code = eGFR) 116 [facility] CenterVelrojhFGNSJRUVW2859-78-59 10:15:00 Test Item Value Reference Range Interpretation Comments Magnesium Lvl (test code = Magnesium 1.9 1.8-2.4 Lvl) [facility] CenterIqwhbmaACMRKNPPE6767-95-48 10:15:00 Test Item Value Reference Range Interpretation Comments Phosphorus (test code = Phosphorus) 4.2 2.5-4.5 [facility] CenterRpcrjjnLWMSREDJU5005-96-98 10:15:00 Test Item Value Reference Range Interpretation Comments Ca Ion WB (test code = Ca Ion WB) 1.23 1.05-1.25 [facility] CenterUcxnnvxHFMHAJOYO8903-40-00 10:15:00 Test Item Value Reference Range Interpretation Comments Ca Ion at pH 7.4 WB (test code = Ca Ion 1.19 1.05-1.25 at pH 7.4 WB) [facility] HospitalOmmykorDIPOQYAKYA5834-79-78 10:15:00 Test Item Value Reference Range Interpretation Comments WBC (test code = WBC) 10.9 3.7-10.4 [facility] HospitalVnkrlcbFUFBPCKBSH6773-72-26 10:15:00 Test Item Value Reference Range Interpretation Comments RBC (test code = RBC) 2.89 4.20-5.40 [facility] HospitalBwtnyvnTZZYTMXFZQ7852-22-76 10:15:00 Test Item Value Reference Range Interpretation Comments Hgb (test code = Hgb) 8.2 12.0-16.0 [facility] HospitalSkwqpssHLRHKRAXPM0140-53-49 10:15:00 Test Item Value Reference Range Interpretation Comments Hct (test code = Hct) 24.5 36.0-48.0 [facility] HospitalMzmqauiYQKHRHLQMT3814-99-14 10:15:00 Test Item Value Reference Range Interpretation Comments MCV (test code = MCV) 84.7 80.0-98.0 [place] 406462-10-30 10:15:00 Test Item Value Reference Range Interpretation Comments MCH (test code = MCH) 28.4 pg 27.0-31.0 [facility] HospitalZbmncfhZLDFDEUILM4879-37-78 10:15:00 Test Item Value Reference Range Interpretation Comments MCHC (test code = MCHC) 33.5 32.0-36.0 [place] 406462-10-30 10:15:00 Test Item Value Reference Range Interpretation Comments RDW (test code = RDW) 13.5 11.5-14.5 [place] 406462-10-30 10:15:00 Test Item Value Reference Range Interpretation Comments Platelet (test code = Platelet) 459 133-450 [place] 406462-10-30 10:15:00 Test Item Value Reference Range Interpretation Comments MPV (test code = MPV) 8.1 7.4-10.4 [place] 406462-10-30 10:15:00 Test Item Value Reference Range Interpretation Comments Segs (test code = Segs) 59.9 45.0-75.0 [place] 406462-10-30 10:15:00 Test Item Value Reference Range Interpretation Comments Lymphocytes (test code = Lymphocytes) 31.3 20.0-40.0 [place] 406462-10-30 10:15:00 Test Item Value Reference Range Interpretation Comments Monocytes (test code = Monocytes) 4.9 2.0-12.0 [facility] HospitalAhdmhiyVSYGSXSNID3139-62-76 10:15:00 Test Item Value Reference Range Interpretation Comments Eosinophils (test code = 3.3 See_Comment [A utomated message] The Eosinophils) system which ge nerated this result tra nsmitted reference range : <=4.0. The reference r kyle was not used to int erpret this result as normal/abnormal . [place] 406462-10-30 10:15:00 Test Item Value Reference Range Interpretation Comments Basophils (test code = 0.6 See_Comment [Aut omated message] The Basophils) system which ge nerated this result tra nsmitted reference range : <=1.0. The reference r kyle was not used to int erpret this result as normal/abnormal . [place] 406462-10-30 10:15:00 Test Item Value Reference Range Interpretation Comments Neutrophils # (test code = Neutrophils 6.5 1.5-8.1 #) [facility] HospitalIrtspscJGMQZQNOMT3223-48-39 10:15:00 Test Item Value Reference Range Interpretation Comments Lymphocytes # (test code = Lymphocytes 3.4 1.0-5.5 #) [facility] HospitalMucwqbiPWACSEGBVU6808-00-75 10:15:00 Test Item Value Reference Range Interpretation Comments Monocytes # (test code 0.5 See_Comment [Aut omated message] The = Monocytes #) system which generated this result tra nsmitted reference range : <=0.8. The reference r kyle was not used to int erpret this result as normal/abnormal . [facility] HospitalFladozzOZVJEONTBQ5491-23-80 10:15:00 Test Item Value Reference Range Interpretation Comments Eosinophils # (test code 0.4 See_Comment [A utomated message] The = Eosinophils #) system whic h generated this result tra nsmitted reference range : <=0.5. The reference r kyle was not used to int erpret this result as normal/abnormal . [facility] HospitalFlcaenbAYBGQOZAVV8347-23-60 10:15:00 Test Item Value Reference Range Interpretation Comments Basophils # (test code 0.1 See_Comment [Aut omated message] The = Basophils #) system which generated this result tra nsmitted reference range : <=0.2. The reference r kyle was not used to int erpret this result as normal/abnormal . [facility] CenterSmmcvjeXHVJRRHYN9874-77-86 10:15:00 Test Item Value Reference Range Interpretation Comments Glucose Lvl (test code = Glucose Lvl) 141 70-99 [facility] CenterKcxbbvcWCXVAAJIY1952-47-10 10:15:00 Test Item Value Reference Range Interpretation Comments BUN (test code = BUN) 12 7-22 [place] 223672-10-30 10:15:00 Test Item Value Reference Range Interpretation Comments Creatinine Lvl (test code = Creatinine 0.42 0.50-1.40 Lvl) [facility] CenterKzpmsgnCDOLPURTZ9499-44-98 10:15:00 Test Item Value Reference Range Interpretation Comments Sodium Lvl (test code = Sodium Lvl) 135 135-145 [facility] CenterMfyorisZAFGYZCSP1885-22-42 10:15:00 Test Item Value Reference Range Interpretation Comments Potassium Lvl (test code = Potassium 4.2 3.5-5.1 Lvl) [facility] CenterHqkydemAYZRXIBXU2782-96-84 10:15:00 Test Item Value Reference Range Interpretation Comments Chloride Lvl (test code = Chloride Lvl) 101 95-109 [facility] CenterMrlqhqePPOXUNVVN0031-90-83 10:15:00 Test Item Value Reference Range Interpretation Comments CO2 (test code = CO2) 30 24-32 [facility] CenterUmrqivfSOONFFQYH7067-63-25 10:15:00 Test Item Value Reference Range Interpretation Comments AGAP (test code = AGAP) 8.2 10.0-20.0 [facility] CenterVcvlfxkNEZYHHCAE4145-80-56 10:15:00 Test Item Value Reference Range Interpretation Comments Calcium Lvl (test code = Calcium Lvl) 8.9 8.5-10.5 [facility] CenterCzpvlhqMFJDRPEVP2736-20-50 10:15:00 Test Item Value Reference Range Interpretation Comments eGFR (test code = eGFR) 116 [facility] CenterAkgfgueITVNXFZCB4594-52-41 10:15:00 Test Item Value Reference Range Interpretation Comments Magnesium Lvl (test code = Magnesium 1.9 1.8-2.4 Lvl) [facility] CenterIspjcdtRYODNWINP5512-24-59 10:15:00 Test Item Value Reference Range Interpretation Comments Phosphorus (test code = Phosphorus) 4.2 2.5-4.5 [facility] CenterNiplcewJDZGXFNWK5754-53-75 10:15:00 Test Item Value Reference Range Interpretation Comments Ca Ion WB (test code = Ca Ion WB) 1.23 1.05-1.25 [facility] CenterTyjygmlVGPKRYNSQ8916-59-98 10:15:00 Test Item Value Reference Range Interpretation Comments Ca Ion at pH 7.4 WB (test code = Ca Ion 1.19 1.05-1.25 at pH 7.4 WB) [facility] HospitalPokkfgnVQUNYFJJYP7908-31-03 10:15:00 Test Item Value Reference Range Interpretation Comments WBC (test code = WBC) 10.9 3.7-10.4 [facility] HospitalQjeaywuQQXXPGGCKM7632-27-38 10:15:00 Test Item Value Reference Range Interpretation Comments RBC (test code = RBC) 2.89 4.20-5.40 [facility] HospitalIvoyiicCRCXMZSZPL5550-25-85 10:15:00 Test Item Value Reference Range Interpretation Comments Hgb (test code = Hgb) 8.2 12.0-16.0 [facility] HospitalQjbhdjcYHKEQTMHJP9437-62-53 10:15:00 Test Item Value Reference Range Interpretation Comments Hct (test code = Hct) 24.5 36.0-48.0 [place] 406462-10-30 10:15:00 Test Item Value Reference Range Interpretation Comments MCV (test code = MCV) 84.7 80.0-98.0 [place] 406462-10-30 10:15:00 Test Item Value Reference Range Interpretation Comments MCH (test code = MCH) 28.4 pg 27.0-31.0 [place] 406462-10-30 10:15:00 Test Item Value Reference Range Interpretation Comments MCHC (test code = MCHC) 33.5 32.0-36.0 [place] 406462-10-30 10:15:00 Test Item Value Reference Range Interpretation Comments RDW (test code = RDW) 13.5 11.5-14.5 [place] 406462-10-30 10:15:00 Test Item Value Reference Range Interpretation Comments Platelet (test code = Platelet) 459 147-450 [facility] HospitalPxxmjrhOWDPSUFSGH5133-61-55 10:15:00 Test Item Value Reference Range Interpretation Comments MPV (test code = MPV) 8.1 7.4-10.4 [place] 406462-10-30 10:15:00 Test Item Value Reference Range Interpretation Comments Segs (test code = Segs) 59.9 45.0-75.0 [place] 406462-10-30 10:15:00 Test Item Value Reference Range Interpretation Comments Lymphocytes (test code = Lymphocytes) 31.3 20.0-40.0 [place] 406462-10-30 10:15:00 Test Item Value Reference Range Interpretation Comments Monocytes (test code = Monocytes) 4.9 2.0-12.0 [place] 406462-10-30 10:15:00 Test Item Value Reference Range Interpretation Comments Eosinophils (test code = 3.3 See_Comment [A utomated message] The Eosinophils) system which ge nerated this result tra nsmitted reference range : <=4.0. The reference r kyle was not used to int erpret this result as normal/abnormal . [place] 406462-10-30 10:15:00 Test Item Value Reference Range Interpretation Comments Basophils (test code = 0.6 See_Comment [Aut omated message] The Basophils) system which ge nerated this result tra nsmitted reference range : <=1.0. The reference r kyle was not used to int erpret this result as normal/abnormal . [facility] HospitalGtfhyfxONAIHIDMMN8720-97-74 10:15:00 Test Item Value Reference Range Interpretation Comments Neutrophils # (test code = Neutrophils 6.5 1.5-8.1 #) [facility] HospitalMpuokfxKFYCCVGYAN6261-25-73 10:15:00 Test Item Value Reference Range Interpretation Comments Lymphocytes # (test code = Lymphocytes 3.4 1.0-5.5 #) [facility] HospitalRsjtjmkCHHKFIAHTG2063-09-13 10:15:00 Test Item Value Reference Range Interpretation Comments Monocytes # (test code 0.5 See_Comment [Aut omated message] The = Monocytes #) system which generated this result tra nsmitted reference range : <=0.8. The reference r kyle was not used to int erpret this result as normal/abnormal . [facility]CyjcxbpWGCYQPDNOR9571-82-32 10:15:00 Test Item Value Reference Range Interpretation Comments Eosinophils # (test code 0.4 See_Comment [A utomated message] The = Eosinophils #) system whic h generated this result tra nsmitted reference range : <=0.5. The reference r kyle was not used to int erpret this result as normal/abnormal . [facility] HospitalFtwtplmPINHMLCHOT6810-60-98 10:15:00 Test Item Value Reference Range Interpretation Comments Basophils # (test code 0.1 See_Comment [Aut omated message] The = Basophils #) system which generated this result tra nsmitted reference range : <=0.2. The reference r kyle was not used to int erpret this result as normal/abnormal . [facility] CenterZfjuhktJVWRJGXZS9324-49-49 10:15:00 Test Item Value Reference Range Interpretation Comments Glucose Lvl (test code = Glucose Lvl) 141 70-99 [facility] CenterOuxovgiXCIKOJTZG7917-08-92 10:15:00 Test Item Value Reference Range Interpretation Comments BUN (test code = BUN) 12 7-22 [facility] CenterJrfysqySOIHTXLVY6628-68-98 10:15:00 Test Item Value Reference Range Interpretation Comments Creatinine Lvl (test code = Creatinine 0.42 0.50-1.40 Lvl) [facility] CenterUbvnbseMUMEAHIEQ8216-50-90 10:15:00 Test Item Value Reference Range Interpretation Comments Sodium Lvl (test code = Sodium Lvl) 135 135-145 [facility] CenterHurzxauCHGOIAZKY1166-85-37 10:15:00 Test Item Value Reference Range Interpretation Comments Potassium Lvl (test code = Potassium 4.2 3.5-5.1 Lvl) [facility] CenterSnzkacaOFPYDUTLU6610-16-27 10:15:00 Test Item Value Reference Range Interpretation Comments Chloride Lvl (test code = Chloride Lvl) 101 95-109 [facility] CenterCaseaqhEVBFIOQNQ9234-77-82 10:15:00 Test Item Value Reference Range Interpretation Comments CO2 (test code = CO2) 30 24-32 [facility] CenterTnaofzgTVZUZYYZM7269-50-26 10:15:00 Test Item Value Reference Range Interpretation Comments AGAP (test code = AGAP) 8.2 10.0-20.0 [facility] CenterOjanoboOUHYVNZCV6992-28-01 10:15:00 Test Item Value Reference Range Interpretation Comments Calcium Lvl (test code = Calcium Lvl) 8.9 8.5-10.5 [facility] CenterAjxbqyhHOEWVJWEQ0621-86-73 10:15:00 Test Item Value Reference Range Interpretation Comments eGFR (test code = eGFR) 116 [facility] CenterEpdvumiBTTIGBETC0484-95-67 10:15:00 Test Item Value Reference Range Interpretation Comments Magnesium Lvl (test code = Magnesium 1.9 1.8-2.4 Lvl) [facility] CenterUxajgfeGTTSTGRRL0124-15-83 10:15:00 Test Item Value Reference Range Interpretation Comments Phosphorus (test code = Phosphorus) 4.2 2.5-4.5 [facility] CenterHkqxtkePMQKGFCPA0065-94-24 10:15:00 Test Item Value Reference Range Interpretation Comments Ca Ion WB (test code = Ca Ion WB) 1.23 1.05-1.25 [facility] CenterCkbwktvFYCIKYRFE0754-15-38 10:15:00 Test Item Value Reference Range Interpretation Comments Ca Ion at pH 7.4 WB (test code = Ca Ion 1.19 1.05-1.25 at pH 7.4 WB) [facility] HospitalTqflfxrQHHQGPAQJC5633-88-02 10:15:00 Test Item Value Reference Range Interpretation Comments WBC (test code = WBC) 10.9 3.7-10.4 [facility] HospitalHthrlygVYOWKYQMKP2392-12-84 10:15:00 Test Item Value Reference Range Interpretation Comments RBC (test code = RBC) 2.89 4.20-5.40 [place] 406462-10-30 10:15:00 Test Item Value Reference Range Interpretation Comments Hgb (test code = Hgb) 8.2 12.0-16.0 [facility] HospitalMliuxcfWNDUKCRITM4119-82-09 10:15:00 Test Item Value Reference Range Interpretation Comments Hct (test code = Hct) 24.5 36.0-48.0 [facility] HospitalMxltswcEQEONYUPFF8564-29-13 10:15:00 Test Item Value Reference Range Interpretation Comments MCV (test code = MCV) 84.7 80.0-98.0 [facility] HospitalMacinhhGDGCAAJOSM4768-40-71 10:15:00 Test Item Value Reference Range Interpretation Comments MCH (test code = MCH) 28.4 pg 27.0-31.0 [facility] HospitalVvjfscoFNHYZLXTRX1896-43-85 10:15:00 Test Item Value Reference Range Interpretation Comments MCHC (test code = MCHC) 33.5 32.0-36.0 [facility] HospitalIfcsydrIJDVVGJTDH3553-46-58 10:15:00 Test Item Value Reference Range Interpretation Comments RDW (test code = RDW) 13.5 11.5-14.5 [facility] HospitalNnkzujzPSKQAYBLEO5549-39-57 10:15:00 Test Item Value Reference Range Interpretation Comments Platelet (test code = Platelet) 459 133-450 [facility] HospitalKrwrrwjRBZNMYFEXW2159-69-76 10:15:00 Test Item Value Reference Range Interpretation Comments MPV (test code = MPV) 8.1 7.4-10.4 [facility] HospitalJgtnwugDHXAESDVLP3362-78-51 10:15:00 Test Item Value Reference Range Interpretation Comments Segs (test code = Segs) 59.9 45.0-75.0 [facility] HospitalQlwaprhFSTNDQDTYH8880-66-41 10:15:00 Test Item Value Reference Range Interpretation Comments Lymphocytes (test code = Lymphocytes) 31.3 20.0-40.0 [facility] HospitalVnhizvvODHQGCIJXF2927-56-59 10:15:00 Test Item Value Reference Range Interpretation Comments Monocytes (test code = Monocytes) 4.9 2.0-12.0 [place] 406462-10-30 10:15:00 Test Item Value Reference Range Interpretation Comments Eosinophils (test code = 3.3 See_Comment [A utomated message] The Eosinophils) system which ge nerated this result tra nsmitted reference range : <=4.0. The reference r kyle was not used to int erpret this result as normal/abnormal . [facility] HospitalPqbswtkZVFKSSEHXU9539-91-43 10:15:00 Test Item Value Reference Range Interpretation Comments Basophils (test code = 0.6 See_Comment [Aut omated message] The Basophils) system which ge nerated this result tra nsmitted reference range : <=1.0. The reference r kyle was not used to int erpret this result as normal/abnormal . [facility] HospitalZgbxdrpXFIIBZFOWJ8112-66-26 10:15:00 Test Item Value Reference Range Interpretation Comments Neutrophils # (test code = Neutrophils 6.5 1.5-8.1 #) [facility] HospitalSgipoliNRKCTEZVNN4236-90-94 10:15:00 Test Item Value Reference Range Interpretation Comments Lymphocytes # (test code = Lymphocytes 3.4 1.0-5.5 #) [facility] HospitalDmqrulpIFFWRQLHQW5387-44-66 10:15:00 Test Item Value Reference Range Interpretation Comments Monocytes # (test code 0.5 See_Comment [Aut omated message] The = Monocytes #) system which generated this result tra nsmitted reference range : <=0.8. The reference r kyle was not used to int erpret this result as normal/abnormal . [facility] HospitalBszmrrkYQNCWWNPKW8284-65-10 10:15:00 Test Item Value Reference Range Interpretation Comments Eosinophils # (test code 0.4 See_Comment [A utomated message] The = Eosinophils #) system whic h generated this result tra nsmitted reference range : <=0.5. The reference r kyle was not used to int erpret this result as normal/abnormal . [facility] HospitalPmxfigtSCCFXOSXBZ8301-13-33 10:15:00 Test Item Value Reference Range Interpretation Comments Basophils # (test code 0.1 See_Comment [Aut omated message] The = Basophils #) system which generated this result tra nsmitted reference range : <=0.2. The reference r kyle was not used to int erpret this result as normal/abnormal . [facility] CenterDurcirfOBZBEWVYQ6707-76-44 10:15:00 Test Item Value Reference Range Interpretation Comments Glucose Lvl (test code = Glucose Lvl) 141 70-99 [facility] CenterHgrkencRKWVZMQEH0776-49-90 10:15:00 Test Item Value Reference Range Interpretation Comments BUN (test code = BUN) 12 7-22 [facility] CenterSkjchyiNYXIGPDJA9138-89-77 10:15:00 Test Item Value Reference Range Interpretation Comments Creatinine Lvl (test code = Creatinine 0.42 0.50-1.40 Lvl) [facility] CenterSfzlbfeHQWBVDZUN7443-07-62 10:15:00 Test Item Value Reference Range Interpretation Comments Sodium Lvl (test code = Sodium Lvl) 135 135-145 [facility] CenterDgmcvhfGYSUYFRYF4533-55-56 10:15:00 Test Item Value Reference Range Interpretation Comments Potassium Lvl (test code = Potassium 4.2 3.5-5.1 Lvl) [facility] CenterDmujlzjVKSNBICJI1966-82-15 10:15:00 Test Item Value Reference Range Interpretation Comments Chloride Lvl (test code = Chloride Lvl) 101 95-109 [facility] CenterEvuezgiJUKDWWBCU9868-69-29 10:15:00 Test Item Value Reference Range Interpretation Comments CO2 (test code = CO2) 30 24-32 [facility] CenterJkljvxaOTVEUCYZH0035-96-56 10:15:00 Test Item Value Reference Range Interpretation Comments AGAP (test code = AGAP) 8.2 10.0-20.0 [facility] CenterXxabbiuYXKGWEXAV9550-09-61 10:15:00 Test Item Value Reference Range Interpretation Comments Calcium Lvl (test code = Calcium Lvl) 8.9 8.5-10.5 [facility] CenterWsuycdkRJWDNTHJK8061-04-74 10:15:00 Test Item Value Reference Range Interpretation Comments eGFR (test code = eGFR) 116 [facility] CenterBexatvpYNKTDYHFE0055-26-48 10:15:00 Test Item Value Reference Range Interpretation Comments Magnesium Lvl (test code = Magnesium 1.9 1.8-2.4 Lvl) [facility] CenterCniykxxFGVRMSMXU1205-24-40 10:15:00 Test Item Value Reference Range Interpretation Comments Phosphorus (test code = Phosphorus) 4.2 2.5-4.5 [facility] CenterRhbwxehYXETHRFFY0949-67-23 10:15:00 Test Item Value Reference Range Interpretation Comments Ca Ion WB (test code = Ca Ion WB) 1.23 1.05-1.25 [facility] CenterHwsfjnlQYKBCWJQL8924-71-49 10:15:00 Test Item Value Reference Range Interpretation Comments Ca Ion at pH 7.4 WB (test code = Ca Ion 1.19 1.05-1.25 at pH 7.4 WB) [facility] HospitalYjmniwkYAGYGGSMOO4708-55-57 10:15:00 Test Item Value Reference Range Interpretation Comments WBC (test code = WBC) 10.9 3.7-10.4 [facility] HospitalJagujxqTMOZTCHPYO7331-02-80 10:15:00 Test Item Value Reference Range Interpretation Comments RBC (test code = RBC) 2.89 4.20-5.40 [facility] HospitalMhotydiOWIRDZCCXN1166-95-16 10:15:00 Test Item Value Reference Range Interpretation Comments Hgb (test code = Hgb) 8.2 12.0-16.0 [facility] HospitalKghxprrVZACRBHBYV7934-77-79 10:15:00 Test Item Value Reference Range Interpretation Comments Hct (test code = Hct) 24.5 36.0-48.0 [facility] HospitalPymgcyeLWDFBPHOXA3904-46-59 10:15:00 Test Item Value Reference Range Interpretation Comments MCV (test code = MCV) 84.7 80.0-98.0 [facility] HospitalHxuqutkJVVVRDGQHX7105-82-66 10:15:00 Test Item Value Reference Range Interpretation Comments MCH (test code = MCH) 28.4 pg 27.0-31.0 [facility] HospitalPujebraZUQODNKNVH2970-49-43 10:15:00 Test Item Value Reference Range Interpretation Comments MCHC (test code = MCHC) 33.5 32.0-36.0 [facility] HospitalXnfsuokTQZZQCMUHF8653-29-48 10:15:00 Test Item Value Reference Range Interpretation Comments RDW (test code = RDW) 13.5 11.5-14.5 [facility] HospitalBzljutpYDLNGWXHMX0322-85-84 10:15:00 Test Item Value Reference Range Interpretation Comments Platelet (test code = Platelet) 459 789-450 [facility] HospitalIvvpgkcVKVFNVPYIC9192-06-15 10:15:00 Test Item Value Reference Range Interpretation Comments MPV (test code = MPV) 8.1 7.4-10.4 [facility] HospitalIhasjljDYMCQQUMNU9857-15-42 10:15:00 Test Item Value Reference Range Interpretation Comments Segs (test code = Segs) 59.9 45.0-75.0 [facility] HospitalBvdahooXFISAXJBTX1719-00-87 10:15:00 Test Item Value Reference Range Interpretation Comments Lymphocytes (test code = Lymphocytes) 31.3 20.0-40.0 [place] 406462-10-30 10:15:00 Test Item Value Reference Range Interpretation Comments Monocytes (test code = Monocytes) 4.9 2.0-12.0 [place] 406462-10-30 10:15:00 Test Item Value Reference Range Interpretation Comments Eosinophils (test code = 3.3 See_Comment [A utomated message] The Eosinophils) system which ge nerated this result tra nsmitted reference range : <=4.0. The reference r kyle was not used to int erpret this result as normal/abnormal . [place] [address]-10-30 10:15:00 Test Item Value Reference Range Interpretation Comments Basophils (test code = 0.6 See_Comment [Aut omated message] The Basophils) system which ge nerated this result tra nsmitted reference range : <=1.0. The reference r kyle was not used to int erpret this result as normal/abnormal . [place] 406462-10-30 10:15:00 Test Item Value Reference Range Interpretation Comments Neutrophils # (test code = Neutrophils 6.5 1.5-8.1 #) [place] 406462-10-30 10:15:00 Test Item Value Reference Range Interpretation Comments Lymphocytes # (test code = Lymphocytes 3.4 1.0-5.5 #) [place] 406462-10-30 10:15:00 Test Item Value Reference Range Interpretation Comments Monocytes # (test code 0.5 See_Comment [Aut omated message] The = Monocytes #) system which generated this result tra nsmitted reference range : <=0.8. The reference r kyle was not used to int erpret this result as normal/abnormal . [place] 406462-10-30 10:15:00 Test Item Value Reference Range Interpretation Comments Eosinophils # (test code 0.4 See_Comment [A utomated message] The = Eosinophils #) system whic h generated this result tra nsmitted reference range : <=0.5. The reference r kyle was not used to int erpret this result as normal/abnormal . [place] 406462-10-30 10:15:00 Test Item Value Reference Range Interpretation Comments Basophils # (test code 0.1 See_Comment [Aut omated message] The = Basophils #) system which generated this result tra nsmitted reference range : <=0.2. The reference r kyle was not used to int erpret this result as normal/abnormal . [facility] CenterHgqnugvTSSOYEVXF1840-53-84 10:15:00 Test Item Value Reference Range Interpretation Comments Glucose Lvl (test code = Glucose Lvl) 141 70-99 [facility] CenterTdimrjrKRLKBBEKJ0259-66-18 10:15:00 Test Item Value Reference Range Interpretation Comments BUN (test code = BUN) 12 7-22 [facility] CenterIeorzgqQAJMQVVWN8517-54-43 10:15:00 Test Item Value Reference Range Interpretation Comments Creatinine Lvl (test code = Creatinine 0.42 0.50-1.40 Lvl) [facility] CenterWczlotiPMPBNGOVV7904-08-09 10:15:00 Test Item Value Reference Range Interpretation Comments Sodium Lvl (test code = Sodium Lvl) 135 135-145 [facility] CenterCvdekpbCAMZYPJUL8476-36-75 10:15:00 Test Item Value Reference Range Interpretation Comments Potassium Lvl (test code = Potassium 4.2 3.5-5.1 Lvl) [facility] CenterYxwxrbuOKASUDJBJ2599-14-89 10:15:00 Test Item Value Reference Range Interpretation Comments Chloride Lvl (test code = Chloride Lvl) 101 95-109 [facility] CenterUgwfwrtKJBXVMXYA9724-63-51 10:15:00 Test Item Value Reference Range Interpretation Comments CO2 (test code = CO2) 30 24-32 [facility] CenterOrzjhesRLZBQHGHH3808-65-94 10:15:00 Test Item Value Reference Range Interpretation Comments AGAP (test code = AGAP) 8.2 10.0-20.0 [facility] CenterAwjdqceDPCGSKIIL4002-22-69 10:15:00 Test Item Value Reference Range Interpretation Comments Calcium Lvl (test code = Calcium Lvl) 8.9 8.5-10.5 [facility] CenterIcunvdlWBXFDGRHZ4652-46-44 10:15:00 Test Item Value Reference Range Interpretation Comments eGFR (test code = eGFR) 116 [facility] CenterHlcghtdQWCDBOAKS1745-05-92 10:15:00 Test Item Value Reference Range Interpretation Comments Magnesium Lvl (test code = Magnesium 1.9 1.8-2.4 Lvl) [facility] CenterJthzcqcFOIWRLZXQ2396-08-07 10:15:00 Test Item Value Reference Range Interpretation Comments Phosphorus (test code = Phosphorus) 4.2 2.5-4.5 [facility] CenterFpfsimsGDKYQKFEB2664-49-19 10:15:00 Test Item Value Reference Range Interpretation Comments Ca Ion WB (test code = Ca Ion WB) 1.23 1.05-1.25 [facility] CenterPnsjnbjPCBWFTHJB5295-80-92 10:15:00 Test Item Value Reference Range Interpretation Comments Ca Ion at pH 7.4 WB (test code = Ca Ion 1.19 1.05-1.25 at pH 7.4 WB) [facility] HospitalKxahfgfDXRRGOIQVZ9081-27-13 10:15:00 Test Item Value Reference Range Interpretation Comments WBC (test code = WBC) 10.9 3.7-10.4 [facility] HospitalUpznmqnSEFZMRLLHE7552-88-34 10:15:00 Test Item Value Reference Range Interpretation Comments RBC (test code = RBC) 2.89 4.20-5.40 [facility] HospitalFkiuvgoBDXRIESLYJ1538-67-11 10:15:00 Test Item Value Reference Range Interpretation Comments Hgb (test code = Hgb) 8.2 12.0-16.0 [place] 406462-10-30 10:15:00 Test Item Value Reference Range Interpretation Comments Hct (test code = Hct) 24.5 36.0-48.0 [facility] HospitalWykkptqLTQNHOZRRU4837-27-05 10:15:00 Test Item Value Reference Range Interpretation Comments MCV (test code = MCV) 84.7 80.0-98.0 [facility] HospitalAhzdzcwCDLMFQYPXX6468-07-38 10:15:00 Test Item Value Reference Range Interpretation Comments MCH (test code = MCH) 28.4 pg 27.0-31.0 [facility] HospitalVfztaizWGCXCGSTAZ5154-62-39 10:15:00 Test Item Value Reference Range Interpretation Comments MCHC (test code = MCHC) 33.5 32.0-36.0 [place] 406462-10-30 10:15:00 Test Item Value Reference Range Interpretation Comments RDW (test code = RDW) 13.5 11.5-14.5 [place] 406462-10-30 10:15:00 Test Item Value Reference Range Interpretation Comments Platelet (test code = Platelet) 451 475-450 [facility] HospitalJdpqrhrOSEIZDGMKN7755-66-44 10:15:00 Test Item Value Reference Range Interpretation Comments MPV (test code = MPV) 8.1 7.4-10.4 [place] 406462-10-30 10:15:00 Test Item Value Reference Range Interpretation Comments Segs (test code = Segs) 59.9 45.0-75.0 [facility] HospitalHqztyqgVLIRZLKJYD1030-31-94 10:15:00 Test Item Value Reference Range Interpretation Comments Lymphocytes (test code = Lymphocytes) 31.3 20.0-40.0 [place] 406462-10-30 10:15:00 Test Item Value Reference Range Interpretation Comments Monocytes (test code = Monocytes) 4.9 2.0-12.0 [place] 406462-10-30 10:15:00 Test Item Value Reference Range Interpretation Comments Eosinophils (test code = 3.3 See_Comment [A utomated message] The Eosinophils) system which ge nerated this result tra nsmitted reference range : <=4.0. The reference r kyle was not used to int erpret this result as normal/abnormal . [place] 406462-10-30 10:15:00 Test Item Value Reference Range Interpretation Comments Basophils (test code = 0.6 See_Comment [Aut omated message] The Basophils) system which ge nerated this result tra nsmitted reference range : <=1.0. The reference r kyle was not used to int erpret this result as normal/abnormal . [facility] HospitalHdjvxwrRQDLJRYJTE4406-89-31 10:15:00 Test Item Value Reference Range Interpretation Comments Neutrophils # (test code = Neutrophils 6.5 1.5-8.1 #) [place] 406462-10-30 10:15:00 Test Item Value Reference Range Interpretation Comments Lymphocytes # (test code = Lymphocytes 3.4 1.0-5.5 #) [place] [address]-10-30 10:15:00 Test Item Value Reference Range Interpretation Comments Monocytes # (test code 0.5 See_Comment [Aut omated message] The = Monocytes #) system which generated this result tra nsmitted reference range : <=0.8. The reference r kyle was not used to int erpret this result as normal/abnormal . [facility] HospitalOodijeyNSCGTDEAIM4228-00-58 10:15:00 Test Item Value Reference Range Interpretation Comments Eosinophils # (test code 0.4 See_Comment [A utomated message] The = Eosinophils #) system whic h generated this result tra nsmitted reference range : <=0.5. The reference r kyle was not used to int erpret this result as normal/abnormal . [facility]MgoicttOJIOQWNNJR2767-88-70 10:15:00 Test Item Value Reference Range Interpretation Comments Basophils # (test code 0.1 See_Comment [Aut omated message] The = Basophils #) system which generated this result tra nsmitted reference range : <=0.2. The reference r kyle was not used to int erpret this result as normal/abnormal . [facility] CenterCpexgwoUPXTYWDLN0040-42-51 10:15:00 Test Item Value Reference Range Interpretation Comments Glucose Lvl (test code = Glucose Lvl) 141 70-99 [facility] CenterZaopytvOFWJMJVEO4748-99-25 10:15:00 Test Item Value Reference Range Interpretation Comments BUN (test code = BUN) 12 7-22 [facility] CenterQgsnhfxFMKJECLOG9297-07-60 10:15:00 Test Item Value Reference Range Interpretation Comments Creatinine Lvl (test code = Creatinine 0.42 0.50-1.40 Lvl) [facility] CenterUqbfmthDQFWBPCHO5652-14-98 10:15:00 Test Item Value Reference Range Interpretation Comments Sodium Lvl (test code = Sodium Lvl) 135 135-145 [facility] CenterArnczfiUFSDHSMMQ6712-05-15 10:15:00 Test Item Value Reference Range Interpretation Comments Potassium Lvl (test code = Potassium 4.2 3.5-5.1 Lvl) [facility] CenterSzunfisTQBDKYBNY9710-20-63 10:15:00 Test Item Value Reference Range Interpretation Comments Chloride Lvl (test code = Chloride Lvl) 101 95-109 [facility] CenterXliinkvKQVUEUQAH3190-81-13 10:15:00 Test Item Value Reference Range Interpretation Comments CO2 (test code = CO2) 30 24-32 [facility] CenterSlmsgzoPCTGXHCLE2111-57-06 10:15:00 Test Item Value Reference Range Interpretation Comments AGAP (test code = AGAP) 8.2 10.0-20.0 [facility] CenterBsoylyrXTEWEVVGN2111-62-14 10:15:00 Test Item Value Reference Range Interpretation Comments Calcium Lvl (test code = Calcium Lvl) 8.9 8.5-10.5 [facility] CenterDupyhrwULVAIICUP5403-34-59 10:15:00 Test Item Value Reference Range Interpretation Comments eGFR (test code = eGFR) 116 [facility] CenterPfsxfveSBPSJZJOP6995-04-40 10:15:00 Test Item Value Reference Range Interpretation Comments Magnesium Lvl (test code = Magnesium 1.9 1.8-2.4 Lvl) [facility] CenterSuctptyOXCZUXYLE3967-99-09 10:15:00 Test Item Value Reference Range Interpretation Comments Phosphorus (test code = Phosphorus) 4.2 2.5-4.5 [facility] CenterUhzxmudZPSKOXWPL8059-16-65 10:15:00 Test Item Value Reference Range Interpretation Comments Ca Ion WB (test code = Ca Ion WB) 1.23 1.05-1.25 [facility] CenterOpupajdUYGBIIBRF4578-07-02 10:15:00 Test Item Value Reference Range Interpretation Comments Ca Ion at pH 7.4 WB (test code = Ca Ion 1.19 1.05-1.25 at pH 7.4 WB) [facility] HospitalYwxvfjeOXHGMPXLXF8467-29-12 10:15:00 Test Item Value Reference Range Interpretation Comments WBC (test code = WBC) 10.9 3.7-10.4 [facility] HospitalRkddljhXADAASPVXQ4092-19-28 10:15:00 Test Item Value Reference Range Interpretation Comments RBC (test code = RBC) 2.89 4.20-5.40 [facility] HospitalAhzqkueZJQFANFVNY9581-25-30 10:15:00 Test Item Value Reference Range Interpretation Comments Hgb (test code = Hgb) 8.2 12.0-16.0 [facility] HospitalMkkjyfzXCHORFSIWZ1762-73-81 10:15:00 Test Item Value Reference Range Interpretation Comments Hct (test code = Hct) 24.5 36.0-48.0 [facility] HospitalQuhiheqEGZOWQQBQW0396-14-77 10:15:00 Test Item Value Reference Range Interpretation Comments MCV (test code = MCV) 84.7 80.0-98.0 [place] 406462-10-30 10:15:00 Test Item Value Reference Range Interpretation Comments MCH (test code = MCH) 28.4 pg 27.0-31.0 [facility] HospitalFmhdauwHBOLFFMRKB1890-74-37 10:15:00 Test Item Value Reference Range Interpretation Comments MCHC (test code = MCHC) 33.5 32.0-36.0 [facility] HospitalTwilgxiESJCZLTCTL3182-16-90 10:15:00 Test Item Value Reference Range Interpretation Comments RDW (test code = RDW) 13.5 11.5-14.5 [place] 406462-10-30 10:15:00 Test Item Value Reference Range Interpretation Comments Platelet (test code = Platelet) 459 133450 [place] 406462-10-30 10:15:00 Test Item Value Reference Range Interpretation Comments MPV (test code = MPV) 8.1 7.4-10.4 [place] 406462-10-30 10:15:00 Test Item Value Reference Range Interpretation Comments Segs (test code = Segs) 59.9 45.0-75.0 [place] 406462-10-30 10:15:00 Test Item Value Reference Range Interpretation Comments Lymphocytes (test code = Lymphocytes) 31.3 20.0-40.0 [place] 406462-10-30 10:15:00 Test Item Value Reference Range Interpretation Comments Monocytes (test code = Monocytes) 4.9 2.0-12.0 [place] 406462-10-30 10:15:00 Test Item Value Reference Range Interpretation Comments Eosinophils (test code = 3.3 See_Comment [A utomated message] The Eosinophils) system which ge nerated this result tra nsmitted reference range : <=4.0. The reference r kyle was not used to int erpret this result as normal/abnormal . [facility]SnrhrufKJXCTEPJBR5179-73-08 10:15:00 Test Item Value Reference Range Interpretation Comments Basophils (test code = 0.6 See_Comment [Aut omated message] The Basophils) system which ge nerated this result tra nsmitted reference range : <=1.0. The reference r kyle was not used to int erpret this result as normal/abnormal . [facility] HospitalYogawwwEOGSIFSPKO4029-04-98 10:15:00 Test Item Value Reference Range Interpretation Comments Neutrophils # (test code = Neutrophils 6.5 1.5-8.1 #) [place] 406462-10-30 10:15:00 Test Item Value Reference Range Interpretation Comments Lymphocytes # (test code = Lymphocytes 3.4 1.0-5.5 #) [place] 406462-10-30 10:15:00 Test Item Value Reference Range Interpretation Comments Monocytes # (test code 0.5 See_Comment [Aut omated message] The = Monocytes #) system which generated this result tra nsmitted reference range : <=0.8. The reference r kyle was not used to int erpret this result as normal/abnormal . [facility] CenterFazksenOIXEVZDFZJ0466-64-24 10:15:00 Test Item Value Reference Range Interpretation Comments Eosinophils # (test code 0.4 See_Comment [A utomated message] The = Eosinophils #) system whic h generated this result tra nsmitted reference range : <=0.5. The reference r kyle was not used to int erpret this result as normal/abnormal . [facility]HjrbgwnWEEANOWRMQ7693-76-31 10:15:00 Test Item Value Reference Range Interpretation Comments Basophils # (test code 0.1 See_Comment [Aut omated message] The = Basophils #) system which generated this result tra nsmitted reference range : <=0.2. The reference r kyle was not used to int erpret this result as normal/abnormal . [facility] HospitalUqsixugYFPYRPARB8484-08-48 10:15:00 Test Item Value Reference Range Interpretation Comments Glucose Lvl (test code = Glucose Lvl) 141 70-99 [facility] CenterVkxeetsTLXRMRPLN4776-44-98 10:15:00 Test Item Value Reference Range Interpretation Comments BUN (test code = BUN) 12 7-22 [facility] HospitalNvptmqbCUTUSVEPW8029-15-21 10:15:00 Test Item Value Reference Range Interpretation Comments Creatinine Lvl (test code = Creatinine 0.42 0.50-1.40 Lvl) [facility] CenterNxrgqjzMAFPGNZGJ0856-22-54 10:15:00 Test Item Value Reference Range Interpretation Comments Sodium Lvl (test code = Sodium Lvl) 135 135-145 [facility] HospitalCrcvtssTISDDTYMY8398-73-19 10:15:00 Test Item Value Reference Range Interpretation Comments Potassium Lvl (test code = Potassium 4.2 3.5-5.1 Lvl) [facility] HospitalZbyprauJYCVTFRQR9976-07-36 10:15:00 Test Item Value Reference Range Interpretation Comments Chloride Lvl (test code = Chloride Lvl) 101 95-109 [facility] HospitalMqakgzwCPVHYQHFH4981-10-84 10:15:00 Test Item Value Reference Range Interpretation Comments CO2 (test code = CO2) 30 24-32 [facility] CenterQvtskewPPDWBCSOL3254-39-00 10:15:00 Test Item Value Reference Range Interpretation Comments AGAP (test code = AGAP) 8.2 10.0-20.0 [place] 223672-10-30 10:15:00 Test Item Value Reference Range Interpretation Comments Calcium Lvl (test code = Calcium Lvl) 8.9 8.5-10.5 [place] 223672-10-30 10:15:00 Test Item Value Reference Range Interpretation Comments eGFR (test code = eGFR) 116 [facility] CenterSuiokcqEMMLLZPSZ2571-69-02 10:15:00 Test Item Value Reference Range Interpretation Comments Magnesium Lvl (test code = Magnesium 1.9 1.8-2.4 Lvl) [facility] CenterPaottovDTRAFOGKG3752-85-14 10:15:00 Test Item Value Reference Range Interpretation Comments Phosphorus (test code = Phosphorus) 4.2 2.5-4.5 [facility] CenterCagriegUNJWUULAO5083-04-69 10:15:00 Test Item Value Reference Range Interpretation Comments Ca Ion WB (test code = Ca Ion WB) 1.23 1.05-1.25 [place] 223672-10-30 10:15:00 Test Item Value Reference Range Interpretation Comments Ca Ion at pH 7.4 WB (test code = Ca Ion 1.19 1.05-1.25 at pH 7.4 WB) [facility] HospitalWadpfozJABYBMTMUP4627-13-40 10:15:00 Test Item Value Reference Range Interpretation Comments WBC (test code = WBC) 10.9 3.7-10.4 [place] 406462-10-30 10:15:00 Test Item Value Reference Range Interpretation Comments RBC (test code = RBC) 2.89 4.20-5.40 [place] 406462-10-30 10:15:00 Test Item Value Reference Range Interpretation Comments Hgb (test code = Hgb) 8.2 12.0-16.0 [place] [address]-10-30 10:15:00 Test Item Value Reference Range Interpretation Comments Hct (test code = Hct) 24.5 36.0-48.0 [place] 406462-10-30 10:15:00 Test Item Value Reference Range Interpretation Comments MCV (test code = MCV) 84.7 80.0-98.0 [place] 406462-10-30 10:15:00 Test Item Value Reference Range Interpretation Comments MCH (test code = MCH) 28.4 pg 27.0-31.0 [facility] HospitalFjmmvuvZYIYNLKNRE4347-66-05 10:15:00 Test Item Value Reference Range Interpretation Comments MCHC (test code = MCHC) 33.5 32.0-36.0 [place] 406462-10-30 10:15:00 Test Item Value Reference Range Interpretation Comments RDW (test code = RDW) 13.5 11.5-14.5 [facility] HospitalWsxjzxtJKQXJIBOZY3101-68-15 10:15:00 Test Item Value Reference Range Interpretation Comments Platelet (test code = Platelet) 459 133-450 [place] 406462-10-30 10:15:00 Test Item Value Reference Range Interpretation Comments MPV (test code = MPV) 8.1 7.4-10.4 [place] 406462-10-30 10:15:00 Test Item Value Reference Range Interpretation Comments Segs (test code = Segs) 59.9 45.0-75.0 [place] 406462-10-30 10:15:00 Test Item Value Reference Range Interpretation Comments Lymphocytes (test code = Lymphocytes) 31.3 20.0-40.0 [place] 406462-10-30 10:15:00 Test Item Value Reference Range Interpretation Comments Monocytes (test code = Monocytes) 4.9 2.0-12.0 [facility] HospitalJrduiszUQOIGUGMMV4367-11-94 10:15:00 Test Item Value Reference Range Interpretation Comments Eosinophils (test code = 3.3 See_Comment [A utomated message] The Eosinophils) system which ge nerated this result tra nsmitted reference range : <=4.0. The reference r kyle was not used to int erpret this result as normal/abnormal . [facility] HospitalPyazgmlRISBEAUABH7173-12-11 10:15:00 Test Item Value Reference Range Interpretation Comments Basophils (test code = 0.6 See_Comment [Aut omated message] The Basophils) system which ge nerated this result tra nsmitted reference range : <=1.0. The reference r kyle was not used to int erpret this result as normal/abnormal . [place] 406462-10-30 10:15:00 Test Item Value Reference Range Interpretation Comments Neutrophils # (test code = Neutrophils 6.5 1.5-8.1 #) [facility] HospitalUgziyzsJKGBZSBAJN5379-74-65 10:15:00 Test Item Value Reference Range Interpretation Comments Lymphocytes # (test code = Lymphocytes 3.4 1.0-5.5 #) [facility] HospitalWwzyidwFRMKQVLPFJ4951-19-57 10:15:00 Test Item Value Reference Range Interpretation Comments Monocytes # (test code 0.5 See_Comment [Aut omated message] The = Monocytes #) system which generated this result tra nsmitted reference range : <=0.8. The reference r kyle was not used to int erpret this result as normal/abnormal . [facility] HospitalTpesysmRGKRWUKXYF3465-80-84 10:15:00 Test Item Value Reference Range Interpretation Comments Eosinophils # (test code 0.4 See_Comment [A utomated message] The = Eosinophils #) system whic h generated this result tra nsmitted reference range : <=0.5. The reference r kyle was not used to int erpret this result as normal/abnormal . [facility] HospitalVwywsjbLTZOITDWQH1078-17-34 10:15:00 Test Item Value Reference Range Interpretation Comments Basophils # (test code 0.1 See_Comment [Aut omated message] The = Basophils #) system which generated this result tra nsmitted reference range : <=0.2. The reference r kyle was not used to int erpret this result as normal/abnormal . [facility] CenterOsltvkpKLQLXIRBP0944-29-74 10:15:00 Test Item Value Reference Range Interpretation Comments Glucose Lvl (test code = Glucose Lvl) 141 70-99 [facility] CenterTtepapvESRHATOSJ2767-60-38 10:15:00 Test Item Value Reference Range Interpretation Comments BUN (test code = BUN) 12 7-22 [place] 223672-10-30 10:15:00 Test Item Value Reference Range Interpretation Comments Creatinine Lvl (test code = Creatinine 0.42 0.50-1.40 Lvl) [facility] CenterFnalkjyMKNDHOFUL6552-59-98 10:15:00 Test Item Value Reference Range Interpretation Comments Sodium Lvl (test code = Sodium Lvl) 135 135-145 [place] 223672-10-30 10:15:00 Test Item Value Reference Range Interpretation Comments Potassium Lvl (test code = Potassium 4.2 3.5-5.1 Lvl) [facility] CenterBlrpucaCAOQDFOOW8831-21-88 10:15:00 Test Item Value Reference Range Interpretation Comments Chloride Lvl (test code = Chloride Lvl) 101 95-109 [facility] CenterYgtzuusTIMDAXOGK6659-75-79 10:15:00 Test Item Value Reference Range Interpretation Comments CO2 (test code = CO2) 30 24-32 [place] 223672-10-30 10:15:00 Test Item Value Reference Range Interpretation Comments AGAP (test code = AGAP) 8.2 10.0-20.0 [facility] CenterIgratyqLMHGSKJYE3466-34-03 10:15:00 Test Item Value Reference Range Interpretation Comments Calcium Lvl (test code = Calcium Lvl) 8.9 8.5-10.5 [facility] CenterOvzmrxpZMNNRBSIJ4934-07-20 10:15:00 Test Item Value Reference Range Interpretation Comments eGFR (test code = eGFR) 116 [facility] CenterUbxtmidUKZDCGYPR9747-07-49 10:15:00 Test Item Value Reference Range Interpretation Comments Magnesium Lvl (test code = Magnesium 1.9 1.8-2.4 Lvl) [facility] CenterKrgdxkdSACJKDFTK5627-26-90 10:15:00 Test Item Value Reference Range Interpretation Comments Phosphorus (test code = Phosphorus) 4.2 2.5-4.5 [facility] CenterOmmplbiNFUIMARHC7660-09-77 10:15:00 Test Item Value Reference Range Interpretation Comments Ca Ion WB (test code = Ca Ion WB) 1.23 1.05-1.25 [facility] CenterDbrbifdVGWSLDIEV4734-97-91 10:15:00 Test Item Value Reference Range Interpretation Comments Ca Ion at pH 7.4 WB (test code = Ca Ion 1.19 1.05-1.25 at pH 7.4 WB) [facility] HospitalLkmgvqnPVNIGLMAIL3836-43-97 10:15:00 Test Item Value Reference Range Interpretation Comments WBC (test code = WBC) 10.9 3.7-10.4 [facility] HospitalCjhyvzjAJYSXRZUYX5153-09-78 10:15:00 Test Item Value Reference Range Interpretation Comments RBC (test code = RBC) 2.89 4.20-5.40 [place] 406462-10-30 10:15:00 Test Item Value Reference Range Interpretation Comments Hgb (test code = Hgb) 8.2 12.0-16.0 [facility] HospitalNvrjzsrERTVPCPUHE6349-00-99 10:15:00 Test Item Value Reference Range Interpretation Comments Hct (test code = Hct) 24.5 36.0-48.0 [place] 406462-10-30 10:15:00 Test Item Value Reference Range Interpretation Comments MCV (test code = MCV) 84.7 80.0-98.0 [place] 406462-10-30 10:15:00 Test Item Value Reference Range Interpretation Comments MCH (test code = MCH) 28.4 pg 27.0-31.0 [place] 406462-10-30 10:15:00 Test Item Value Reference Range Interpretation Comments MCHC (test code = MCHC) 33.5 32.0-36.0 [place] 406462-10-30 10:15:00 Test Item Value Reference Range Interpretation Comments RDW (test code = RDW) 13.5 11.5-14.5 [place] 406462-10-30 10:15:00 Test Item Value Reference Range Interpretation Comments Platelet (test code = Platelet) 459 133-450 [facility] HospitalNqcdytkJSYDTKULQD5099-10-51 10:15:00 Test Item Value Reference Range Interpretation Comments MPV (test code = MPV) 8.1 7.4-10.4 [facility] HospitalAcvogisEXCAMIVYBH0463-51-92 10:15:00 Test Item Value Reference Range Interpretation Comments Segs (test code = Segs) 59.9 45.0-75.0 [facility] HospitalElimahdHDTZAOQIBP7292-48-37 10:15:00 Test Item Value Reference Range Interpretation Comments Lymphocytes (test code = Lymphocytes) 31.3 20.0-40.0 [place] 406462-10-30 10:15:00 Test Item Value Reference Range Interpretation Comments Monocytes (test code = Monocytes) 4.9 2.0-12.0 [place] [address]-10-30 10:15:00 Test Item Value Reference Range Interpretation Comments Eosinophils (test code = 3.3 See_Comment [A utomated message] The Eosinophils) system which ge nerated this result tra nsmitted reference range : <=4.0. The reference r kyle was not used to int erpret this result as normal/abnormal . [facility] HospitalHubdixaJFUGBAJLIA8402-27-38 10:15:00 Test Item Value Reference Range Interpretation Comments Basophils (test code = 0.6 See_Comment [Aut omated message] The Basophils) system which ge nerated this result tra nsmitted reference range : <=1.0. The reference r kyle was not used to int erpret this result as normal/abnormal . [facility] HospitalDhmqydqDVQIEHVJKX0339-93-91 10:15:00 Test Item Value Reference Range Interpretation Comments Neutrophils # (test code = Neutrophils 6.5 1.5-8.1 #) [facility] HospitalXayahmaYQUWJZIUGI5780-92-14 10:15:00 Test Item Value Reference Range Interpretation Comments Lymphocytes # (test code = Lymphocytes 3.4 1.0-5.5 #) [facility] HospitalPnlahebYCRJFAVTGL1699-54-01 10:15:00 Test Item Value Reference Range Interpretation Comments Monocytes # (test code 0.5 See_Comment [Aut omated message] The = Monocytes #) system which generated this result tra nsmitted reference range : <=0.8. The reference r kyle was not used to int erpret this result as normal/abnormal . [facility] HospitalRijeqnqGAYKGZYKWC4851-25-13 10:15:00 Test Item Value Reference Range Interpretation Comments Eosinophils # (test code 0.4 See_Comment [A utomated message] The = Eosinophils #) system whic h generated this result tra nsmitted reference range : <=0.5. The reference r kyle was not used to int erpret this result as normal/abnormal . [facility] HospitalVggejmpPCUZAPXRTE4494-23-49 10:15:00 Test Item Value Reference Range Interpretation Comments Basophils # (test code 0.1 See_Comment [Aut omated message] The = Basophils #) system which generated this result tra nsmitted reference range : <=0.2. The reference r kyle was not used to int erpret this result as normal/abnormal . [facility] CenterOiptxrpSSATRJAFM3891-36-31 10:15:00 Test Item Value Reference Range Interpretation Comments Glucose Lvl (test code = Glucose Lvl) 141 70-99 [facility] CenterUacvtmsJTWGIHFPT9873-69-76 10:15:00 Test Item Value Reference Range Interpretation Comments BUN (test code = BUN) 12 7-22 [facility] CenterDezzdhxAGISYSOXO2477-56-92 10:15:00 Test Item Value Reference Range Interpretation Comments Creatinine Lvl (test code = Creatinine 0.42 0.50-1.40 Lvl) [facility] CenterMrscspiBCQJTHHXS1288-69-35 10:15:00 Test Item Value Reference Range Interpretation Comments Sodium Lvl (test code = Sodium Lvl) 135 135-145 [facility] CenterObvipvdRRUWLHPFY0327-84-33 10:15:00 Test Item Value Reference Range Interpretation Comments Potassium Lvl (test code = Potassium 4.2 3.5-5.1 Lvl) [facility] CenterIsdtodtLKXZOBQLQ7558-09-52 10:15:00 Test Item Value Reference Range Interpretation Comments Chloride Lvl (test code = Chloride Lvl) 101 95-109 [facility] CenterAsyhwmgWILRTQAFI3306-89-25 10:15:00 Test Item Value Reference Range Interpretation Comments CO2 (test code = CO2) 30 24-32 [facility] CenterNiqqgeaFYYLQIYJT7604-63-78 10:15:00 Test Item Value Reference Range Interpretation Comments AGAP (test code = AGAP) 8.2 10.0-20.0 [facility] CenterSuydnvxGAICYONJR4833-22-20 10:15:00 Test Item Value Reference Range Interpretation Comments Calcium Lvl (test code = Calcium Lvl) 8.9 8.5-10.5 [facility] CenterIurlyhrKYTWGQYFJ5964-03-96 10:15:00 Test Item Value Reference Range Interpretation Comments eGFR (test code = eGFR) 116 [facility] CenterKpsvkgzZDQSBEKFY6090-34-56 10:15:00 Test Item Value Reference Range Interpretation Comments Magnesium Lvl (test code = Magnesium 1.9 1.8-2.4 Lvl) [facility] CenterNmjmkcmXCANBGKMV2373-24-62 10:15:00 Test Item Value Reference Range Interpretation Comments Phosphorus (test code = Phosphorus) 4.2 2.5-4.5 [facility] CenterAcfuwlfWDBPSNLME5579-51-70 10:15:00 Test Item Value Reference Range Interpretation Comments Ca Ion WB (test code = Ca Ion WB) 1.23 1.05-1.25 [facility] CenterAmbphjpYRQFGYHRV8168-80-63 10:15:00 Test Item Value Reference Range Interpretation Comments Ca Ion at pH 7.4 WB (test code = Ca Ion 1.19 1.05-1.25 at pH 7.4 WB) [facility] HospitalTfhcxeuBSLAZOYPPM5240-63-37 10:15:00 Test Item Value Reference Range Interpretation Comments WBC (test code = WBC) 10.9 3.7-10.4 [facility] HospitalVaunireGSVFYFQOZO0461-29-79 10:15:00 Test Item Value Reference Range Interpretation Comments RBC (test code = RBC) 2.89 4.20-5.40 [facility] HospitalNobbccjBFPDNLAPTO6748-28-44 10:15:00 Test Item Value Reference Range Interpretation Comments Hgb (test code = Hgb) 8.2 12.0-16.0 [facility] HospitalYjpemvwHSPVUFKMFK6438-29-48 10:15:00 Test Item Value Reference Range Interpretation Comments Hct (test code = Hct) 24.5 36.0-48.0 [facility] HospitalOkedtqzVOHEMEUTCL6207-27-64 10:15:00 Test Item Value Reference Range Interpretation Comments MCV (test code = MCV) 84.7 80.0-98.0 [facility] HospitalTbxsswqFWMGBBDWZZ1125-53-56 10:15:00 Test Item Value Reference Range Interpretation Comments MCH (test code = MCH) 28.4 pg 27.0-31.0 [facility] HospitalNlcdcfnFZDCJJTIBJ1362-66-19 10:15:00 Test Item Value Reference Range Interpretation Comments MCHC (test code = MCHC) 33.5 32.0-36.0 [facility] HospitalGkmfhzcEIQVTDVNQG2778-05-58 10:15:00 Test Item Value Reference Range Interpretation Comments RDW (test code = RDW) 13.5 11.5-14.5 [facility] HospitalVxdqkrmEXOJEHDXVR4049-85-91 10:15:00 Test Item Value Reference Range Interpretation Comments Platelet (test code = Platelet) 459 975-450 [facility] HospitalGpujdwwZRLLJJKCXX2282-26-09 10:15:00 Test Item Value Reference Range Interpretation Comments MPV (test code = MPV) 8.1 7.4-10.4 [place] 406462-10-30 10:15:00 Test Item Value Reference Range Interpretation Comments Segs (test code = Segs) 59.9 45.0-75.0 [place] 406462-10-30 10:15:00 Test Item Value Reference Range Interpretation Comments Lymphocytes (test code = Lymphocytes) 31.3 20.0-40.0 [place] 406462-10-30 10:15:00 Test Item Value Reference Range Interpretation Comments Monocytes (test code = Monocytes) 4.9 2.0-12.0 [place] 406462-10-30 10:15:00 Test Item Value Reference Range Interpretation Comments Eosinophils (test code = 3.3 See_Comment [A utomated message] The Eosinophils) system which ge nerated this result tra nsmitted reference range : <=4.0. The reference r kyle was not used to int erpret this result as normal/abnormal . [place] 406462-10-30 10:15:00 Test Item Value Reference Range Interpretation Comments Basophils (test code = 0.6 See_Comment [Aut omated message] The Basophils) system which ge nerated this result tra nsmitted reference range : <=1.0. The reference r kyle was not used to int erpret this result as normal/abnormal . [facility] HospitalMtqodonQCNWDMXZCI2710-35-54 10:15:00 Test Item Value Reference Range Interpretation Comments Neutrophils # (test code = Neutrophils 6.5 1.5-8.1 #) [place] 406462-10-30 10:15:00 Test Item Value Reference Range Interpretation Comments Lymphocytes # (test code = Lymphocytes 3.4 1.0-5.5 #) [place] 406462-10-30 10:15:00 Test Item Value Reference Range Interpretation Comments Monocytes # (test code 0.5 See_Comment [Aut omated message] The = Monocytes #) system which generated this result tra nsmitted reference range : <=0.8. The reference r kyle was not used to int erpret this result as normal/abnormal . [facility] HospitalUgrkrpeZHKMOMYIZE8042-90-92 10:15:00 Test Item Value Reference Range Interpretation Comments Eosinophils # (test code 0.4 See_Comment [A utomated message] The = Eosinophils #) system whic h generated this result tra nsmitted reference range : <=0.5. The reference r kyle was not used to int erpret this result as normal/abnormal . [facility] HospitalFmqjjqsWYHWPZAZMG0780-30-61 10:15:00 Test Item Value Reference Range Interpretation Comments Basophils # (test code 0.1 See_Comment [Aut omated message] The = Basophils #) system which generated this result tra nsmitted reference range : <=0.2. The reference r kyle was not used to int erpret this result as normal/abnormal . [facility] CenterVyprcgpSUCGJJCPX7293-84-76 10:15:00 Test Item Value Reference Range Interpretation Comments Glucose Lvl (test code = Glucose Lvl) 141 70-99 [facility] CenterGprwlmaIAHQYCBOH8463-30-79 10:15:00 Test Item Value Reference Range Interpretation Comments BUN (test code = BUN) 12 7-22 [facility] CenterOawhsrvBIHKGCFCJ7423-13-45 10:15:00 Test Item Value Reference Range Interpretation Comments Creatinine Lvl (test code = Creatinine 0.42 0.50-1.40 Lvl) [facility] CenterBbpnjvbIDOPZILGP1932-95-07 10:15:00 Test Item Value Reference Range Interpretation Comments Sodium Lvl (test code = Sodium Lvl) 135 135-145 [facility] CenterFrvwkodUHKPQIJAO0293-54-30 10:15:00 Test Item Value Reference Range Interpretation Comments Potassium Lvl (test code = Potassium 4.2 3.5-5.1 Lvl) [facility] CenterFqacaoqTZRLIVTQP2717-03-17 10:15:00 Test Item Value Reference Range Interpretation Comments Chloride Lvl (test code = Chloride Lvl) 101 95-109 [facility] CenterRywimlcFLMJGXCBE8610-89-16 10:15:00 Test Item Value Reference Range Interpretation Comments CO2 (test code = CO2) 30 24-32 [facility] CenterOgkdqtgNNBVFWQCA4010-67-90 10:15:00 Test Item Value Reference Range Interpretation Comments AGAP (test code = AGAP) 8.2 10.0-20.0 [facility] CenterSiycjikPKDBUQFDZ7994-28-24 10:15:00 Test Item Value Reference Range Interpretation Comments Calcium Lvl (test code = Calcium Lvl) 8.9 8.5-10.5 [facility] CenterXucecbvUDOAFBUJS8770-23-16 10:15:00 Test Item Value Reference Range Interpretation Comments eGFR (test code = eGFR) 116 [facility] CenterWsruxhiKLVNZUAFP7601-82-45 10:15:00 Test Item Value Reference Range Interpretation Comments Magnesium Lvl (test code = Magnesium 1.9 1.8-2.4 Lvl) [facility] CenterIeytftsHVHMKMUWW5819-75-93 10:15:00 Test Item Value Reference Range Interpretation Comments Phosphorus (test code = Phosphorus) 4.2 2.5-4.5 [facility] CenterRweeqbpHUZKSOYKG0407-25-59 10:15:00 Test Item Value Reference Range Interpretation Comments Ca Ion WB (test code = Ca Ion WB) 1.23 1.05-1.25 [facility] CenterOscsvwjXTKRWWMOK5525-65-35 10:15:00 Test Item Value Reference Range Interpretation Comments Ca Ion at pH 7.4 WB (test code = Ca Ion 1.19 1.05-1.25 at pH 7.4 WB) [facility] HospitalAsrsowpKKDAMZEAAO5491-82-47 10:15:00 Test Item Value Reference Range Interpretation Comments WBC (test code = WBC) 10.9 3.7-10.4 [facility] HospitalCbkyzchLTFWIVDEXT3982-71-26 10:15:00 Test Item Value Reference Range Interpretation Comments RBC (test code = RBC) 2.89 4.20-5.40 [facility] HospitalOxyfvmsIILIPTDTGQ5957-40-92 10:15:00 Test Item Value Reference Range Interpretation Comments Hgb (test code = Hgb) 8.2 12.0-16.0 [place] 406462-10-30 10:15:00 Test Item Value Reference Range Interpretation Comments Hct (test code = Hct) 24.5 36.0-48.0 [place] 406462-10-30 10:15:00 Test Item Value Reference Range Interpretation Comments MCV (test code = MCV) 84.7 80.0-98.0 [facility] HospitalSkbxvxcTTHIXLZPKO4571-02-85 10:15:00 Test Item Value Reference Range Interpretation Comments MCH (test code = MCH) 28.4 pg 27.0-31.0 [facility] HospitalMcblqswNUWBYMDPGE1431-98-60 10:15:00 Test Item Value Reference Range Interpretation Comments MCHC (test code = MCHC) 33.5 32.0-36.0 [place] 406462-10-30 10:15:00 Test Item Value Reference Range Interpretation Comments RDW (test code = RDW) 13.5 11.5-14.5 [place] 406462-10-30 10:15:00 Test Item Value Reference Range Interpretation Comments Platelet (test code = Platelet) 459 687-450 [facility] HospitalYvxumgbGAOSCHYOVS1349-65-92 10:15:00 Test Item Value Reference Range Interpretation Comments MPV (test code = MPV) 8.1 7.4-10.4 [place] 406462-10-30 10:15:00 Test Item Value Reference Range Interpretation Comments Segs (test code = Segs) 59.9 45.0-75.0 [facility] HospitalEbvcpubVXAUIZJJLV4522-73-95 10:15:00 Test Item Value Reference Range Interpretation Comments Lymphocytes (test code = Lymphocytes) 31.3 20.0-40.0 [facility] HospitalSkpticsPFROHNLOWR9765-16-67 10:15:00 Test Item Value Reference Range Interpretation Comments Monocytes (test code = Monocytes) 4.9 2.0-12.0 [place] 406462-10-30 10:15:00 Test Item Value Reference Range Interpretation Comments Eosinophils (test code = 3.3 See_Comment [A utomated message] The Eosinophils) system which ge nerated this result tra nsmitted reference range : <=4.0. The reference r kyle was not used to int erpret this result as normal/abnormal . [facility] HospitalQmrsfwuAVDKXOKLWC8414-46-37 10:15:00 Test Item Value Reference Range Interpretation Comments Basophils (test code = 0.6 See_Comment [Aut omated message] The Basophils) system which ge nerated this result tra nsmitted reference range : <=1.0. The reference r kyle was not used to int erpret this result as normal/abnormal . [facility] HospitalOmwxibmTNCPMJVTMD2374-93-73 10:15:00 Test Item Value Reference Range Interpretation Comments Neutrophils # (test code = Neutrophils 6.5 1.5-8.1 #) [facility] HospitalCwpijisGKIEVTDGGK6221-35-90 10:15:00 Test Item Value Reference Range Interpretation Comments Lymphocytes # (test code = Lymphocytes 3.4 1.0-5.5 #) [facility] HospitalIfqvsfuMMOQIVEPWB6538-32-66 10:15:00 Test Item Value Reference Range Interpretation Comments Monocytes # (test code 0.5 See_Comment [Aut omated message] The = Monocytes #) system which generated this result tra nsmitted reference range : <=0.8. The reference r kyle was not used to int erpret this result as normal/abnormal . [facility] HospitalNnelidlZSKNDVSKYM0229-91-97 10:15:00 Test Item Value Reference Range Interpretation Comments Eosinophils # (test code 0.4 See_Comment [A utomated message] The = Eosinophils #) system whic h generated this result tra nsmitted reference range : <=0.5. The reference r kyle was not used to int erpret this result as normal/abnormal . [facility] HospitalEsxgszvUTXSPSKLMW2172-87-78 10:15:00 Test Item Value Reference Range Interpretation Comments Basophils # (test code 0.1 See_Comment [Aut omated message] The = Basophils #) system which generated this result tra nsmitted reference range : <=0.2. The reference r kyle was not used to int erpret this result as normal/abnormal . [facility] CenterSqtlrrpFSVEKDWHX2993-76-58 10:15:00 Test Item Value Reference Range Interpretation Comments Glucose Lvl (test code = Glucose Lvl) 141 70-99 [facility] CenterNgwmppqKQEKSRIVX4174-99-71 10:15:00 Test Item Value Reference Range Interpretation Comments BUN (test code = BUN) 12 7-22 [facility] CenterZfjibllLMZMEHJYH1396-96-25 10:15:00 Test Item Value Reference Range Interpretation Comments Creatinine Lvl (test code = Creatinine 0.42 0.50-1.40 Lvl) [facility] CenterNgxpmedSDERPYPQN6437-61-82 10:15:00 Test Item Value Reference Range Interpretation Comments Sodium Lvl (test code = Sodium Lvl) 135 135-145 [facility] CenterRpcafbzNVZTPLOUR3585-24-87 10:15:00 Test Item Value Reference Range Interpretation Comments Potassium Lvl (test code = Potassium 4.2 3.5-5.1 Lvl) [facility] CenterTvfbjymSIJMBRZAC7056-64-86 10:15:00 Test Item Value Reference Range Interpretation Comments Chloride Lvl (test code = Chloride Lvl) 101 95-109 [facility] CenterBvkvcfxYAYGIWIOW1839-41-58 10:15:00 Test Item Value Reference Range Interpretation Comments CO2 (test code = CO2) 30 24-32 [facility] CenterSzxpaviLZJQKRMBW6409-02-39 10:15:00 Test Item Value Reference Range Interpretation Comments AGAP (test code = AGAP) 8.2 10.0-20.0 [facility] CenterRiubskaRHXFXSSOU6080-17-24 10:15:00 Test Item Value Reference Range Interpretation Comments Calcium Lvl (test code = Calcium Lvl) 8.9 8.5-10.5 [facility] CenterPjudxzfPKSCCNNTK1070-70-10 10:15:00 Test Item Value Reference Range Interpretation Comments eGFR (test code = eGFR) 116 [facility] CenterDkwxequVBNGXBZDI9710-52-46 10:15:00 Test Item Value Reference Range Interpretation Comments Magnesium Lvl (test code = Magnesium 1.9 1.8-2.4 Lvl) [facility] CenterMweljpgKTTAFMSLR5910-31-93 10:15:00 Test Item Value Reference Range Interpretation Comments Phosphorus (test code = Phosphorus) 4.2 2.5-4.5 [facility] CenterRmgsbstOWXPXWGNZ2489-80-91 10:15:00 Test Item Value Reference Range Interpretation Comments Ca Ion WB (test code = Ca Ion WB) 1.23 1.05-1.25 [facility] CenterEaqksytXYNUECXNN2034-87-15 10:15:00 Test Item Value Reference Range Interpretation Comments Ca Ion at pH 7.4 WB (test code = Ca Ion 1.19 1.05-1.25 at pH 7.4 WB) [facility] HospitalMvsrgxkAHUDNHWCDR1538-28-61 10:15:00 Test Item Value Reference Range Interpretation Comments WBC (test code = WBC) 10.9 3.7-10.4 [facility] HospitalYdhsyscMTKQMKMCLC3554-49-01 10:15:00 Test Item Value Reference Range Interpretation Comments RBC (test code = RBC) 2.89 4.20-5.40 [facility] HospitalAudawoxCDDQLEHTRY6203-24-77 10:15:00 Test Item Value Reference Range Interpretation Comments Hgb (test code = Hgb) 8.2 12.0-16.0 [facility] HospitalEqkptwbBPOFMIUBBT4155-06-11 10:15:00 Test Item Value Reference Range Interpretation Comments Hct (test code = Hct) 24.5 36.0-48.0 [facility] HospitalGhxdhajTVFZQIUMLQ6971-31-37 10:15:00 Test Item Value Reference Range Interpretation Comments MCV (test code = MCV) 84.7 80.0-98.0 [facility] HospitalAlxkbbhKBRLCRJRGD6024-43-97 10:15:00 Test Item Value Reference Range Interpretation Comments MCH (test code = MCH) 28.4 pg 27.0-31.0 [facility] HospitalCvxhzeaEAVTLWESZR4872-14-02 10:15:00 Test Item Value Reference Range Interpretation Comments MCHC (test code = MCHC) 33.5 32.0-36.0 [facility] HospitalIzjitpmXYCBGKDKVG7497-87-98 10:15:00 Test Item Value Reference Range Interpretation Comments RDW (test code = RDW) 13.5 11.5-14.5 [facility] HospitalZdfrejwXCGTIOPMSP0955-53-65 10:15:00 Test Item Value Reference Range Interpretation Comments Platelet (test code = Platelet) 455 191-994 [facility] HospitalIdmuemxZZSBOWKYRY5696-66-68 10:15:00 Test Item Value Reference Range Interpretation Comments MPV (test code = MPV) 8.1 7.4-10.4 [facility] HospitalQbtiuzrUUSQPQSZSG5066-00-32 10:15:00 Test Item Value Reference Range Interpretation Comments Segs (test code = Segs) 59.9 45.0-75.0 [facility] HospitalNzwemxxQZUBLOXHYP3458-50-43 10:15:00 Test Item Value Reference Range Interpretation Comments Lymphocytes (test code = Lymphocytes) 31.3 20.0-40.0 [facility] HospitalRmmplelRVBPEIFOKO6574-92-44 10:15:00 Test Item Value Reference Range Interpretation Comments Monocytes (test code = Monocytes) 4.9 2.0-12.0 [facility] HospitalEyzeumhVWSWPMMDVR9549-67-12 10:15:00 Test Item Value Reference Range Interpretation Comments Eosinophils (test code = 3.3 See_Comment [A utomated message] The Eosinophils) system which ge nerated this result tra nsmitted reference range : <=4.0. The reference r kyle was not used to int erpret this result as normal/abnormal . [facility] HospitalIqtiwwwPGSEVORUMY3300-14-07 10:15:00 Test Item Value Reference Range Interpretation Comments Basophils (test code = 0.6 See_Comment [Aut omated message] The Basophils) system which ge nerated this result tra nsmitted reference range : <=1.0. The reference r kyle was not used to int erpret this result as normal/abnormal . [facility] HospitalQgkgeqqOBPSOMEZAU0918-59-65 10:15:00 Test Item Value Reference Range Interpretation Comments Neutrophils # (test code = Neutrophils 6.5 1.5-8.1 #) [facility] HospitalCnpybdgMARXNKMTJE4069-51-43 10:15:00 Test Item Value Reference Range Interpretation Comments Lymphocytes # (test code = Lymphocytes 3.4 1.0-5.5 #) [place] 406462-10-30 10:15:00 Test Item Value Reference Range Interpretation Comments Monocytes # (test code 0.5 See_Comment [Aut omated message] The = Monocytes #) system which generated this result tra nsmitted reference range : <=0.8. The reference r kyle was not used to int erpret this result as normal/abnormal . [place] 406462-10-30 10:15:00 Test Item Value Reference Range Interpretation Comments Eosinophils # (test code 0.4 See_Comment [A utomated message] The = Eosinophils #) system whic h generated this result tra nsmitted reference range : <=0.5. The reference r kyle was not used to int erpret this result as normal/abnormal . [facility] HospitalYzmaseiSSJMOAQNOP4511-52-79 10:15:00 Test Item Value Reference Range Interpretation Comments Basophils # (test code 0.1 See_Comment [Aut omated message] The = Basophils #) system which generated this result tra nsmitted reference range : <=0.2. The reference r kyle was not used to int erpret this result as normal/abnormal . [facility] CenterFcxwdplSTBBSPYQF0972-27-76 10:15:00 Test Item Value Reference Range Interpretation Comments Glucose Lvl (test code = Glucose Lvl) 141 70-99 [facility] CenterCbvoyafMTZQMEWOP9022-55-45 10:15:00 Test Item Value Reference Range Interpretation Comments BUN (test code = BUN) 12 7-22 [facility] CenterYaltidiZHJWPMNOU2289-73-99 10:15:00 Test Item Value Reference Range Interpretation Comments Creatinine Lvl (test code = Creatinine 0.42 0.50-1.40 Lvl) [facility] CenterTjgymvvDNQVPSVOW6094-11-30 10:15:00 Test Item Value Reference Range Interpretation Comments Sodium Lvl (test code = Sodium Lvl) 135 135-145 [facility] CenterUvoakktRUWOJKMHF4785-27-90 10:15:00 Test Item Value Reference Range Interpretation Comments Potassium Lvl (test code = Potassium 4.2 3.5-5.1 Lvl) [facility] CenterGccyfrkUWHLOGGWP3572-75-45 10:15:00 Test Item Value Reference Range Interpretation Comments Chloride Lvl (test code = Chloride Lvl) 101 95-109 [facility] CenterRbwrgzmSFADMKJPR9104-03-51 10:15:00 Test Item Value Reference Range Interpretation Comments CO2 (test code = CO2) 30 24-32 [facility] CenterRzzrrurKNBKCBVLM9850-80-81 10:15:00 Test Item Value Reference Range Interpretation Comments AGAP (test code = AGAP) 8.2 10.0-20.0 [facility] CenterJwkbqaaYWGFTVZMH6757-47-88 10:15:00 Test Item Value Reference Range Interpretation Comments Calcium Lvl (test code = Calcium Lvl) 8.9 8.5-10.5 [facility] CenterXkihfnqMTJWRSQNT1469-60-22 10:15:00 Test Item Value Reference Range Interpretation Comments eGFR (test code = eGFR) 116 [facility] CenterAdrlcmsFKGKIGXDW9707-01-55 10:15:00 Test Item Value Reference Range Interpretation Comments Magnesium Lvl (test code = Magnesium 1.9 1.8-2.4 Lvl) [facility] CenterTofxlwuSJVBQXXTW7649-46-16 10:15:00 Test Item Value Reference Range Interpretation Comments Phosphorus (test code = Phosphorus) 4.2 2.5-4.5 [facility] CenterVgxecgaBISZAMTKT0017-58-47 10:15:00 Test Item Value Reference Range Interpretation Comments Ca Ion WB (test code = Ca Ion WB) 1.23 1.05-1.25 [facility] CenterXsoalckOQQYKXUES1614-72-36 10:15:00 Test Item Value Reference Range Interpretation Comments Ca Ion at pH 7.4 WB (test code = Ca Ion 1.19 1.05-1.25 at pH 7.4 WB) [facility] HospitalKivrlipEPNNOCEIST4646-89-62 10:15:00 Test Item Value Reference Range Interpretation Comments WBC (test code = WBC) 10.9 3.7-10.4 [facility] HospitalEbmigwbIXCRCMOBMH4227-92-57 10:15:00 Test Item Value Reference Range Interpretation Comments RBC (test code = RBC) 2.89 4.20-5.40 [facility] HospitalRpcdcdzHZMKUOCUXP1113-08-86 10:15:00 Test Item Value Reference Range Interpretation Comments Hgb (test code = Hgb) 8.2 12.0-16.0 [facility] HospitalBxrbehcNCICXJZOZR1355-51-03 10:15:00 Test Item Value Reference Range Interpretation Comments Hct (test code = Hct) 24.5 36.0-48.0 [facility] HospitalBidaqfnSGFWVQZLOC8162-49-17 10:15:00 Test Item Value Reference Range Interpretation Comments MCV (test code = MCV) 84.7 80.0-98.0 [place] 406462-10-30 10:15:00 Test Item Value Reference Range Interpretation Comments MCH (test code = MCH) 28.4 pg 27.0-31.0 [facility] HospitalCarmwchWAJQJKGSWU3421-17-75 10:15:00 Test Item Value Reference Range Interpretation Comments MCHC (test code = MCHC) 33.5 32.0-36.0 [place] [address]-10-30 10:15:00 Test Item Value Reference Range Interpretation Comments RDW (test code = RDW) 13.5 11.5-14.5 [place] 406462-10-30 10:15:00 Test Item Value Reference Range Interpretation Comments Platelet (test code = Platelet) 459 133-450 [place] 406462-10-30 10:15:00 Test Item Value Reference Range Interpretation Comments MPV (test code = MPV) 8.1 7.4-10.4 [place] 406462-10-30 10:15:00 Test Item Value Reference Range Interpretation Comments Segs (test code = Segs) 59.9 45.0-75.0 [place] 406462-10-30 10:15:00 Test Item Value Reference Range Interpretation Comments Lymphocytes (test code = Lymphocytes) 31.3 20.0-40.0 [place] 406462-10-30 10:15:00 Test Item Value Reference Range Interpretation Comments Monocytes (test code = Monocytes) 4.9 2.0-12.0 [place] 406462-10-30 10:15:00 Test Item Value Reference Range Interpretation Comments Eosinophils (test code = 3.3 See_Comment [A utomated message] The Eosinophils) system which ge nerated this result tra nsmitted reference range : <=4.0. The reference r kyle was not used to int erpret this result as normal/abnormal . [facility] HospitalElhbtrqQHNLZOGFSS4790-98-43 10:15:00 Test Item Value Reference Range Interpretation Comments Basophils (test code = 0.6 See_Comment [Aut omated message] The Basophils) system which ge nerated this result tra nsmitted reference range : <=1.0. The reference r kyle was not used to int erpret this result as normal/abnormal . [facility] HospitalTlpmdrxZDXITLDRJX8926-67-50 10:15:00 Test Item Value Reference Range Interpretation Comments Neutrophils # (test code = Neutrophils 6.5 1.5-8.1 #) [place] 406462-10-30 10:15:00 Test Item Value Reference Range Interpretation Comments Lymphocytes # (test code = Lymphocytes 3.4 1.0-5.5 #) [place] 406462-10-30 10:15:00 Test Item Value Reference Range Interpretation Comments Monocytes # (test code 0.5 See_Comment [Aut omated message] The = Monocytes #) system which generated this result tra nsmitted reference range : <=0.8. The reference r kyle was not used to int erpret this result as normal/abnormal . [facility] HospitalFegpdhqYKKRTNZHLR9704-40-25 10:15:00 Test Item Value Reference Range Interpretation Comments Eosinophils # (test code 0.4 See_Comment [A utomated message] The = Eosinophils #) system whic h generated this result tra nsmitted reference range : <=0.5. The reference r kyle was not used to int erpret this result as normal/abnormal . [facility] HospitalJizeojjFQGOPJDEHG1347-32-80 10:15:00 Test Item Value Reference Range Interpretation Comments Basophils # (test code 0.1 See_Comment [Aut omated message] The = Basophils #) system which generated this result tra nsmitted reference range : <=0.2. The reference r kyle was not used to int erpret this result as normal/abnormal . [facility] CenterLuaqlhdHFQUQBXXD8468-67-25 10:15:00 Test Item Value Reference Range Interpretation Comments Glucose Lvl (test code = Glucose Lvl) 141 70-99 [facility] CenterLqinkmrTPUSIQXFX7768-77-07 10:15:00 Test Item Value Reference Range Interpretation Comments BUN (test code = BUN) 12 7-22 [facility] CenterXjocgmxVBFRZMHQA3233-38-73 10:15:00 Test Item Value Reference Range Interpretation Comments Creatinine Lvl (test code = Creatinine 0.42 0.50-1.40 Lvl) [facility] CenterLvtawhwYVLVYSUGK4320-59-92 10:15:00 Test Item Value Reference Range Interpretation Comments Sodium Lvl (test code = Sodium Lvl) 135 135-145 [facility] CenterUwbyqehGIQOXXUOK1901-32-73 10:15:00 Test Item Value Reference Range Interpretation Comments Potassium Lvl (test code = Potassium 4.2 3.5-5.1 Lvl) [facility] CenterAvcykewSPPJJUGVT1321-25-55 10:15:00 Test Item Value Reference Range Interpretation Comments Chloride Lvl (test code = Chloride Lvl) 101 95-109 [facility] CenterUcknglgJBEMFPNIP0764-13-45 10:15:00 Test Item Value Reference Range Interpretation Comments CO2 (test code = CO2) 30 24-32 [facility] CenterSrylakbWVCXVCAYV2515-40-67 10:15:00 Test Item Value Reference Range Interpretation Comments AGAP (test code = AGAP) 8.2 10.0-20.0 [facility] CenterNhrymnfUXCVZEJAK7696-08-21 10:15:00 Test Item Value Reference Range Interpretation Comments Calcium Lvl (test code = Calcium Lvl) 8.9 8.5-10.5 [facility] CenterSchoxpuWYRYFVTPL6724-22-86 10:15:00 Test Item Value Reference Range Interpretation Comments eGFR (test code = eGFR) 116 [facility] CenterTcraswoURGZRJIJJ8954-69-70 10:15:00 Test Item Value Reference Range Interpretation Comments Magnesium Lvl (test code = Magnesium 1.9 1.8-2.4 Lvl) [facility] CenterPuxsydvWNIUBRJUV8269-72-96 10:15:00 Test Item Value Reference Range Interpretation Comments Phosphorus (test code = Phosphorus) 4.2 2.5-4.5 [facility] CenterGcrlbnyAKQGQRNOP1412-72-91 10:15:00 Test Item Value Reference Range Interpretation Comments Ca Ion WB (test code = Ca Ion WB) 1.23 1.05-1.25 [facility] CenterYbsnuxyGEGGREQXV3127-35-57 10:15:00 Test Item Value Reference Range Interpretation Comments Ca Ion at pH 7.4 WB (test code = Ca Ion 1.19 1.05-1.25 at pH 7.4 WB) [facility] HospitalQwfgagkCVCSBZOLHS1167-25-03 10:15:00 Test Item Value Reference Range Interpretation Comments WBC (test code = WBC) 10.9 3.7-10.4 [facility] HospitalHsctpoqKASONAFPRS6223-32-73 10:15:00 Test Item Value Reference Range Interpretation Comments RBC (test code = RBC) 2.89 4.20-5.40 [facility] HospitalWnzarnqDNXBGKUANQ2747-38-60 10:15:00 Test Item Value Reference Range Interpretation Comments Hgb (test code = Hgb) 8.2 12.0-16.0 [place] 406462-10-30 10:15:00 Test Item Value Reference Range Interpretation Comments Hct (test code = Hct) 24.5 36.0-48.0 [facility] HospitalCfnzyntBVCAQFGKHE5764-45-01 10:15:00 Test Item Value Reference Range Interpretation Comments MCV (test code = MCV) 84.7 80.0-98.0 [facility] HospitalJjqkzmmFBDWMOMKEK3758-32-99 10:15:00 Test Item Value Reference Range Interpretation Comments MCH (test code = MCH) 28.4 pg 27.0-31.0 [facility] HospitalFbykgufSJFDXGJKFA9255-08-37 10:15:00 Test Item Value Reference Range Interpretation Comments MCHC (test code = MCHC) 33.5 32.0-36.0 [facility] HospitalSmspenuXTJHDTCVRY4841-31-11 10:15:00 Test Item Value Reference Range Interpretation Comments RDW (test code = RDW) 13.5 11.5-14.5 [facility] HospitalTddthmjHJWHRRQUSK1562-81-75 10:15:00 Test Item Value Reference Range Interpretation Comments Platelet (test code = Platelet) 459 133-450 [facility] HospitalSslkqsjFFBVAZJFOV7401-91-06 10:15:00 Test Item Value Reference Range Interpretation Comments MPV (test code = MPV) 8.1 7.4-10.4 [facility] HospitalTkysnuvFQFAVPKATT4472-03-61 10:15:00 Test Item Value Reference Range Interpretation Comments Segs (test code = Segs) 59.9 45.0-75.0 [facility] HospitalFffiezmFHKZMRZRXB0308-42-46 10:15:00 Test Item Value Reference Range Interpretation Comments Lymphocytes (test code = Lymphocytes) 31.3 20.0-40.0 [facility] HospitalXonigajDOJBEAHTHH0224-45-31 10:15:00 Test Item Value Reference Range Interpretation Comments Monocytes (test code = Monocytes) 4.9 2.0-12.0 [facility] HospitalSvybkutNBRFMVJXDS2557-65-94 10:15:00 Test Item Value Reference Range Interpretation Comments Eosinophils (test code = 3.3 See_Comment [A utomated message] The Eosinophils) system which ge nerated this result tra nsmitted reference range : <=4.0. The reference r kyle was not used to int erpret this result as normal/abnormal . [facility] HospitalTswyualXEAHEBSPEL9326-02-36 10:15:00 Test Item Value Reference Range Interpretation Comments Basophils (test code = 0.6 See_Comment [Aut omated message] The Basophils) system which ge nerated this result tra nsmitted reference range : <=1.0. The reference r kyle was not used to int erpret this result as normal/abnormal . [facility] HospitalPrwikdkDBMIXECSUN7397-35-12 10:15:00 Test Item Value Reference Range Interpretation Comments Neutrophils # (test code = Neutrophils 6.5 1.5-8.1 #) [facility] HospitalFyvfouiDBIGMZSJUW1994-27-48 10:15:00 Test Item Value Reference Range Interpretation Comments Lymphocytes # (test code = Lymphocytes 3.4 1.0-5.5 #) [facility] HospitalRmliobvMYYYIAWFQM1244-27-20 10:15:00 Test Item Value Reference Range Interpretation Comments Monocytes # (test code 0.5 See_Comment [Aut omated message] The = Monocytes #) system which generated this result tra nsmitted reference range : <=0.8. The reference r kyle was not used to int erpret this result as normal/abnormal . [facility] HospitalEorwluqGBMVATAOYH6032-07-20 10:15:00 Test Item Value Reference Range Interpretation Comments Eosinophils # (test code 0.4 See_Comment [A utomated message] The = Eosinophils #) system whic h generated this result tra nsmitted reference range : <=0.5. The reference r kyle was not used to int erpret this result as normal/abnormal . [facility] HospitalNoxlyrtFTKCTXAIYH8826-67-28 10:15:00 Test Item Value Reference Range Interpretation Comments Basophils # (test code 0.1 See_Comment [Aut omated message] The = Basophils #) system which generated this result tra nsmitted reference range : <=0.2. The reference r kyle was not used to int erpret this result as normal/abnormal . [facility] CenterAexvgtpPEGAYZDAP8270-39-75 10:15:00 Test Item Value Reference Range Interpretation Comments Glucose Lvl (test code = Glucose Lvl) 141 70-99 [facility] CenterSigquqoUHTJAMPRQ9622-16-18 10:15:00 Test Item Value Reference Range Interpretation Comments BUN (test code = BUN) 12 7-22 [facility] CenterKreopvnRMDHTZTEG6431-62-98 10:15:00 Test Item Value Reference Range Interpretation Comments Creatinine Lvl (test code = Creatinine 0.42 0.50-1.40 Lvl) [facility] CenterCpmmpqeFZYYQQJGY1227-49-67 10:15:00 Test Item Value Reference Range Interpretation Comments Sodium Lvl (test code = Sodium Lvl) 135 135-145 [facility] CenterLryyblfHMRVVWSVY8996-04-50 10:15:00 Test Item Value Reference Range Interpretation Comments Potassium Lvl (test code = Potassium 4.2 3.5-5.1 Lvl) [facility] CenterFxrasncMZXNHSGSE7140-33-64 10:15:00 Test Item Value Reference Range Interpretation Comments Chloride Lvl (test code = Chloride Lvl) 101 95-109 [place] 223672-10-30 10:15:00 Test Item Value Reference Range Interpretation Comments CO2 (test code = CO2) 30 24-32 [facility] CenterCzwfxycVSUWGZSRU2471-70-83 10:15:00 Test Item Value Reference Range Interpretation Comments AGAP (test code = AGAP) 8.2 10.0-20.0 [facility] CenterYixywxoTDWMLPIZW5312-16-05 10:15:00 Test Item Value Reference Range Interpretation Comments Calcium Lvl (test code = Calcium Lvl) 8.9 8.5-10.5 [facility] CenterEegzhoxUJEAGNBJL8754-97-56 10:15:00 Test Item Value Reference Range Interpretation Comments eGFR (test code = eGFR) 116 [facility] CenterFgvtztkNZIIAHGVS5913-67-51 10:15:00 Test Item Value Reference Range Interpretation Comments Magnesium Lvl (test code = Magnesium 1.9 1.8-2.4 Lvl) [facility] CenterSlsvurmEHNFLHSZX0952-59-13 10:15:00 Test Item Value Reference Range Interpretation Comments Phosphorus (test code = Phosphorus) 4.2 2.5-4.5 [facility] CenterMsapwhdUGIFFUQUZ1192-79-87 10:15:00 Test Item Value Reference Range Interpretation Comments Ca Ion WB (test code = Ca Ion WB) 1.23 1.05-1.25 [facility] CenterHnbjqyrHHQJQSWBN2485-84-69 10:15:00 Test Item Value Reference Range Interpretation Comments Ca Ion at pH 7.4 WB (test code = Ca Ion 1.19 1.05-1.25 at pH 7.4 WB) [facility]RafcjybPQYAKQNOFA0110-74-63 10:15:00 Test Item Value Reference Range Interpretation Comments WBC (test code = WBC) 10.9 3.7-10.4 [facility] HospitalLovikglMYSGOZELVC7499-81-12 10:15:00 Test Item Value Reference Range Interpretation Comments RBC (test code = RBC) 2.89 4.20-5.40 [facility] HospitalKhzucpuARQEBDZOUP2278-92-97 10:15:00 Test Item Value Reference Range Interpretation Comments Hgb (test code = Hgb) 8.2 12.0-16.0 [facility] HospitalLirhompBMLVRUUKKO7478-00-04 10:15:00 Test Item Value Reference Range Interpretation Comments Hct (test code = Hct) 24.5 36.0-48.0 [facility] HospitalGvmdxptDCSBZFXWSP0153-28-20 10:15:00 Test Item Value Reference Range Interpretation Comments MCV (test code = MCV) 84.7 80.0-98.0 [facility] HospitalQiemzfxPYELATHRNK6936-62-77 10:15:00 Test Item Value Reference Range Interpretation Comments MCH (test code = MCH) 28.4 pg 27.0-31.0 [facility] HospitalYytscjrHLVMBHAVIB9369-60-39 10:15:00 Test Item Value Reference Range Interpretation Comments MCHC (test code = MCHC) 33.5 32.0-36.0 [facility] HospitalTdajzcaWDFHIBOQAH2168-77-02 10:15:00 Test Item Value Reference Range Interpretation Comments RDW (test code = RDW) 13.5 11.5-14.5 [facility] HospitalIqcyxlqVXEWGJYKNB1854-09-72 10:15:00 Test Item Value Reference Range Interpretation Comments Platelet (test code = Platelet) 459 133-450 [facility] HospitalLvszibpWCEZHTBGXG7636-39-00 10:15:00 Test Item Value Reference Range Interpretation Comments MPV (test code = MPV) 8.1 7.4-10.4 [facility] HospitalWoafvovNOYUJKNKGL9450-92-08 10:15:00 Test Item Value Reference Range Interpretation Comments Segs (test code = Segs) 59.9 45.0-75.0 [facility] HospitalRsgkbfeHFDLVOIBLK4157-46-55 10:15:00 Test Item Value Reference Range Interpretation Comments Lymphocytes (test code = Lymphocytes) 31.3 20.0-40.0 [facility] HospitalQzmxkezZKAYULHVLF8943-37-72 10:15:00 Test Item Value Reference Range Interpretation Comments Monocytes (test code = Monocytes) 4.9 2.0-12.0 [place] 406462-10-30 10:15:00 Test Item Value Reference Range Interpretation Comments Eosinophils (test code = 3.3 See_Comment [A utomated message] The Eosinophils) system which ge nerated this result tra nsmitted reference range : <=4.0. The reference r kyle was not used to int erpret this result as normal/abnormal . [facility] HospitalTaoeyetQEPUCGKPHF4271-52-18 10:15:00 Test Item Value Reference Range Interpretation Comments Basophils (test code = 0.6 See_Comment [Aut omated message] The Basophils) system which ge nerated this result tra nsmitted reference range : <=1.0. The reference r kyle was not used to int erpret this result as normal/abnormal . [facility] HospitalZhlvemgEHJIUQKJMA4321-95-63 10:15:00 Test Item Value Reference Range Interpretation Comments Neutrophils # (test code = Neutrophils 6.5 1.5-8.1 #) [facility] HospitalVbpuetlGHFITGJZZB5388-24-98 10:15:00 Test Item Value Reference Range Interpretation Comments Lymphocytes # (test code = Lymphocytes 3.4 1.0-5.5 #) [facility] HospitalNhxjppsOAPZYMBIHE2915-71-41 10:15:00 Test Item Value Reference Range Interpretation Comments Monocytes # (test code 0.5 See_Comment [Aut omated message] The = Monocytes #) system which generated this result tra nsmitted reference range : <=0.8. The reference r kyle was not used to int erpret this result as normal/abnormal . [facility] HospitalBldnmeuOCHXCMIJMN2893-58-74 10:15:00 Test Item Value Reference Range Interpretation Comments Eosinophils # (test code 0.4 See_Comment [A utomated message] The = Eosinophils #) system whic h generated this result tra nsmitted reference range : <=0.5. The reference r kyle was not used to int erpret this result as normal/abnormal . [facility] HospitalRcbztcuEZMLGMQWFA2525-30-08 10:15:00 Test Item Value Reference Range Interpretation Comments Basophils # (test code 0.1 See_Comment [Aut omated message] The = Basophils #) system which generated this result tra nsmitted reference range : <=0.2. The reference r kyle was not used to int erpret this result as normal/abnormal . [facility] CenterDnicuswRMNTDPJKL4618-53-77 10:15:00 Test Item Value Reference Range Interpretation Comments Glucose Lvl (test code = Glucose Lvl) 141 70-99 [facility] CenterHvlfqeoXHPYRCLVM9242-88-00 10:15:00 Test Item Value Reference Range Interpretation Comments BUN (test code = BUN) 12 7-22 [facility] CenterMtykqvfHMLCTGPWH9297-84-50 10:15:00 Test Item Value Reference Range Interpretation Comments Creatinine Lvl (test code = Creatinine 0.42 0.50-1.40 Lvl) [facility] CenterYxcqxdlNFHGHRBXC3361-04-23 10:15:00 Test Item Value Reference Range Interpretation Comments Sodium Lvl (test code = Sodium Lvl) 135 135-145 [facility] CenterYrofncjPQJHYGBDE6503-88-19 10:15:00 Test Item Value Reference Range Interpretation Comments Potassium Lvl (test code = Potassium 4.2 3.5-5.1 Lvl) [facility] CenterBwnhbqkASDFXRLXK0381-87-84 10:15:00 Test Item Value Reference Range Interpretation Comments Chloride Lvl (test code = Chloride Lvl) 101 95-109 [facility] CenterUosfyehKJAVIPDYC7567-79-59 10:15:00 Test Item Value Reference Range Interpretation Comments CO2 (test code = CO2) 30 24-32 [facility] CenterIicfzdrWYSZONPBB5202-51-91 10:15:00 Test Item Value Reference Range Interpretation Comments AGAP (test code = AGAP) 8.2 10.0-20.0 [facility] CenterArocpygPRQLOOJDN2941-58-06 10:15:00 Test Item Value Reference Range Interpretation Comments Calcium Lvl (test code = Calcium Lvl) 8.9 8.5-10.5 [facility] CenterHkxiftfCIESUYPYG3007-48-88 10:15:00 Test Item Value Reference Range Interpretation Comments eGFR (test code = eGFR) 116 [facility] CenterOiddtulGFEJDIZHO9469-81-71 10:15:00 Test Item Value Reference Range Interpretation Comments Magnesium Lvl (test code = Magnesium 1.9 1.8-2.4 Lvl) [facility] CenterPhamcjcJGAWNOSBT8521-59-91 10:15:00 Test Item Value Reference Range Interpretation Comments Phosphorus (test code = Phosphorus) 4.2 2.5-4.5 [facility] CenterIakhfmhAKOGMVRUY7494-37-97 10:15:00 Test Item Value Reference Range Interpretation Comments Ca Ion WB (test code = Ca Ion WB) 1.23 1.05-1.25 [facility] CenterMkdjwgqSTSJNGJBI7480-33-35 10:15:00 Test Item Value Reference Range Interpretation Comments Ca Ion at pH 7.4 WB (test code = Ca Ion 1.19 1.05-1.25 at pH 7.4 WB) [facility] HospitalTkwrivnAUJFAPFFMN7895-06-26 10:15:00 Test Item Value Reference Range Interpretation Comments WBC (test code = WBC) 10.9 3.7-10.4 [facility] HospitalVlmhfmsEJESXVSTPW6700-66-20 10:15:00 Test Item Value Reference Range Interpretation Comments RBC (test code = RBC) 2.89 4.20-5.40 [facility] HospitalDuktjccHNWFNDFWPI2538-35-73 10:15:00 Test Item Value Reference Range Interpretation Comments Hgb (test code = Hgb) 8.2 12.0-16.0 [facility] HospitalGktxzpsJBYRVHHUUT7966-02-13 10:15:00 Test Item Value Reference Range Interpretation Comments Hct (test code = Hct) 24.5 36.0-48.0 [facility] HospitalGruwdruUZHCZBJEDX3529-68-56 10:15:00 Test Item Value Reference Range Interpretation Comments MCV (test code = MCV) 84.7 80.0-98.0 [facility] HospitalGxbimdrTIQZVRHZVD1349-45-53 10:15:00 Test Item Value Reference Range Interpretation Comments MCH (test code = MCH) 28.4 pg 27.0-31.0 [facility] HospitalQluhwjhHQMYWALGMW0816-12-90 10:15:00 Test Item Value Reference Range Interpretation Comments MCHC (test code = MCHC) 33.5 32.0-36.0 [facility] HospitalVngvuolVJISSXNQHD4707-22-97 10:15:00 Test Item Value Reference Range Interpretation Comments RDW (test code = RDW) 13.5 11.5-14.5 [place] 406462-10-30 10:15:00 Test Item Value Reference Range Interpretation Comments Platelet (test code = Platelet) 458 614-450 [facility] HospitalMxsiggzOXWZWPHMXW5419-24-61 10:15:00 Test Item Value Reference Range Interpretation Comments MPV (test code = MPV) 8.1 7.4-10.4 [facility] HospitalGljiwhgEYFMOAPCKU5365-47-28 10:15:00 Test Item Value Reference Range Interpretation Comments Segs (test code = Segs) 59.9 45.0-75.0 [place] 406462-10-30 10:15:00 Test Item Value Reference Range Interpretation Comments Lymphocytes (test code = Lymphocytes) 31.3 20.0-40.0 [place] 406462-10-30 10:15:00 Test Item Value Reference Range Interpretation Comments Monocytes (test code = Monocytes) 4.9 2.0-12.0 [facility] HospitalVngggzmCJDZQGUFPV1788-11-03 10:15:00 Test Item Value Reference Range Interpretation Comments Eosinophils (test code = 3.3 See_Comment [A utomated message] The Eosinophils) system which ge nerated this result tra nsmitted reference range : <=4.0. The reference r kyle was not used to int erpret this result as normal/abnormal . [facility] HospitalYpujgvkMYNFNEGPNY0847-03-59 10:15:00 Test Item Value Reference Range Interpretation Comments Basophils (test code = 0.6 See_Comment [Aut omated message] The Basophils) system which ge nerated this result tra nsmitted reference range : <=1.0. The reference r kyle was not used to int erpret this result as normal/abnormal . [facility] HospitalKqdjawvBKJZICTVBA2605-94-45 10:15:00 Test Item Value Reference Range Interpretation Comments Neutrophils # (test code = Neutrophils 6.5 1.5-8.1 #) [facility] HospitalPvhlnjlZEWVGJBFXA4763-12-33 10:15:00 Test Item Value Reference Range Interpretation Comments Lymphocytes # (test code = Lymphocytes 3.4 1.0-5.5 #) [facility] HospitalJkketbmREBEGEBMJB8945-05-30 10:15:00 Test Item Value Reference Range Interpretation Comments Monocytes # (test code 0.5 See_Comment [Aut omated message] The = Monocytes #) system which generated this result tra nsmitted reference range : <=0.8. The reference r kyle was not used to int erpret this result as normal/abnormal . [facility] HospitalUlqowvcNFTEXOZUVC6189-65-34 10:15:00 Test Item Value Reference Range Interpretation Comments Eosinophils # (test code 0.4 See_Comment [A utomated message] The = Eosinophils #) system whic h generated this result tra nsmitted reference range : <=0.5. The reference r kyle was not used to int erpret this result as normal/abnormal . [facility] HospitalYanoairPIMWBGDZVI1947-83-50 10:15:00 Test Item Value Reference Range Interpretation Comments Basophils # (test code 0.1 See_Comment [Aut omated message] The = Basophils #) system which generated this result tra nsmitted reference range : <=0.2. The reference r kyle was not used to int erpret this result as normal/abnormal . [facility] CenterPftmizkFPDCIBOBA5419-00-69 10:15:00 Test Item Value Reference Range Interpretation Comments Glucose Lvl (test code = Glucose Lvl) 141 70-99 [facility] CenterBjsmzfoJVUEAICQC8338-54-58 10:15:00 Test Item Value Reference Range Interpretation Comments BUN (test code = BUN) 12 7-22 [facility] CenterNemwxxsASOXMDSKZ7683-50-89 10:15:00 Test Item Value Reference Range Interpretation Comments Creatinine Lvl (test code = Creatinine 0.42 0.50-1.40 Lvl) [facility] CenterUcnfhcmWOYPEFNXD2334-43-25 10:15:00 Test Item Value Reference Range Interpretation Comments Sodium Lvl (test code = Sodium Lvl) 135 135-145 [facility] CenterGklrmajHJXXCOWTI0599-60-79 10:15:00 Test Item Value Reference Range Interpretation Comments Potassium Lvl (test code = Potassium 4.2 3.5-5.1 Lvl) [facility] CenterSbppercOQQSEYJAH2198-35-64 10:15:00 Test Item Value Reference Range Interpretation Comments Chloride Lvl (test code = Chloride Lvl) 101 95-109 [facility] CenterDjgfiptJUAOBLMAC0888-09-56 10:15:00 Test Item Value Reference Range Interpretation Comments CO2 (test code = CO2) 30 24-32 [facility] CenterTasvwwjFFMZVHFEB3233-71-25 10:15:00 Test Item Value Reference Range Interpretation Comments AGAP (test code = AGAP) 8.2 10.0-20.0 [facility] CenterFfsoxjgXELVOIOVQ8043-65-81 10:15:00 Test Item Value Reference Range Interpretation Comments Calcium Lvl (test code = Calcium Lvl) 8.9 8.5-10.5 [facility] CenterTemrucmPRRYLIRCG6429-97-73 10:15:00 Test Item Value Reference Range Interpretation Comments eGFR (test code = eGFR) 116 [facility] CenterVdykbpyFQPROLARN9820-41-07 10:15:00 Test Item Value Reference Range Interpretation Comments Magnesium Lvl (test code = Magnesium 1.9 1.8-2.4 Lvl) [facility] CenterCaahxxoQHQTJNJPS6170-98-12 10:15:00 Test Item Value Reference Range Interpretation Comments Phosphorus (test code = Phosphorus) 4.2 2.5-4.5 [facility] CenterHwgvgzoGVXJMIATS8532-66-56 10:15:00 Test Item Value Reference Range Interpretation Comments Ca Ion WB (test code = Ca Ion WB) 1.23 1.05-1.25 [facility] CenterBikntlyITDLSHEXK6285-09-73 10:15:00 Test Item Value Reference Range Interpretation Comments Ca Ion at pH 7.4 WB (test code = Ca Ion 1.19 1.05-1.25 at pH 7.4 WB) [facility] HospitalEiwdpvpDUXEHJPRJY9756-21-09 10:15:00 Test Item Value Reference Range Interpretation Comments WBC (test code = WBC) 10.9 3.7-10.4 [facility] HospitalLjnkxjmRHPXQDMOLA4979-94-19 10:15:00 Test Item Value Reference Range Interpretation Comments RBC (test code = RBC) 2.89 4.20-5.40 [facility] HospitalScqakcoBWIJVHTHFG6389-59-92 10:15:00 Test Item Value Reference Range Interpretation Comments Hgb (test code = Hgb) 8.2 12.0-16.0 [facility] HospitalVfmeorvDZOAEYRDWH6920-58-83 10:15:00 Test Item Value Reference Range Interpretation Comments Hct (test code = Hct) 24.5 36.0-48.0 [facility] HospitalHlgmgsmTDPYLQYLFX9517-73-91 10:15:00 Test Item Value Reference Range Interpretation Comments MCV (test code = MCV) 84.7 80.0-98.0 [facility] HospitalOlfabxeDPEGUUBLZL2473-80-19 10:15:00 Test Item Value Reference Range Interpretation Comments MCH (test code = MCH) 28.4 pg 27.0-31.0 [facility] HospitalRcoqadbIOGWHWGYEB4477-77-07 10:15:00 Test Item Value Reference Range Interpretation Comments MCHC (test code = MCHC) 33.5 32.0-36.0 [facility] HospitalZrtiovaBPIFZXSKWH0813-26-07 10:15:00 Test Item Value Reference Range Interpretation Comments RDW (test code = RDW) 13.5 11.5-14.5 [facility] HospitalAjandkrRHKJWGWIFX5336-39-01 10:15:00 Test Item Value Reference Range Interpretation Comments Platelet (test code = Platelet) 459 733-450 [facility] HospitalShzshgmCZNQHJKPMO3460-63-19 10:15:00 Test Item Value Reference Range Interpretation Comments MPV (test code = MPV) 8.1 7.4-10.4 [facility] HospitalTmeywjiWTKHRKGOMV7060-42-09 10:15:00 Test Item Value Reference Range Interpretation Comments Segs (test code = Segs) 59.9 45.0-75.0 [place] 406462-10-30 10:15:00 Test Item Value Reference Range Interpretation Comments Lymphocytes (test code = Lymphocytes) 31.3 20.0-40.0 [place] 406462-10-30 10:15:00 Test Item Value Reference Range Interpretation Comments Monocytes (test code = Monocytes) 4.9 2.0-12.0 [place] 406462-10-30 10:15:00 Test Item Value Reference Range Interpretation Comments Eosinophils (test code = 3.3 See_Comment [A utomated message] The Eosinophils) system which ge nerated this result tra nsmitted reference range : <=4.0. The reference r kyle was not used to int erpret this result as normal/abnormal . [place] 406462-10-30 10:15:00 Test Item Value Reference Range Interpretation Comments Basophils (test code = 0.6 See_Comment [Aut omated message] The Basophils) system which ge nerated this result tra nsmitted reference range : <=1.0. The reference r kyle was not used to int erpret this result as normal/abnormal . [facility] HospitalKsidcnkBVZHJHCPLD5764-91-72 10:15:00 Test Item Value Reference Range Interpretation Comments Neutrophils # (test code = Neutrophils 6.5 1.5-8.1 #) [place] 406462-10-30 10:15:00 Test Item Value Reference Range Interpretation Comments Lymphocytes # (test code = Lymphocytes 3.4 1.0-5.5 #) [place] 406462-10-30 10:15:00 Test Item Value Reference Range Interpretation Comments Monocytes # (test code 0.5 See_Comment [Aut omated message] The = Monocytes #) system which generated this result tra nsmitted reference range : <=0.8. The reference r kyle was not used to int erpret this result as normal/abnormal . [facility] HospitalUcdlczgUQFKBLPFOC3368-23-03 10:15:00 Test Item Value Reference Range Interpretation Comments Eosinophils # (test code 0.4 See_Comment [A utomated message] The = Eosinophils #) system [facility] h generated this result tra nsmitted reference range : <=0.5. The reference r kyle was not used to int erpret this result as normal/abnormal . [facility]AuoconpNUBSYXCUUR3528-42-07 10:15:00 Test Item Value Reference Range Interpretation Comments Basophils # (test code 0.1 See_Comment [Aut omated message] The = Basophils #) system which generated this result tra nsmitted reference range : <=0.2. The reference r kyle was not used to int erpret this result as normal/abnormal . [facility] CenterPdudimaHEAWICTJT7323-59-37 10:15:00 Test Item Value Reference Range Interpretation Comments Glucose Lvl (test code = Glucose Lvl) 141 70-99 [facility] CenterDllmlgpZYSTGQOMK1805-36-07 10:15:00 Test Item Value Reference Range Interpretation Comments BUN (test code = BUN) 12 7-22 [facility] CenterRtdnczgXUIGJYSBP0622-47-65 10:15:00 Test Item Value Reference Range Interpretation Comments Creatinine Lvl (test code = Creatinine 0.42 0.50-1.40 Lvl) [facility] CenterXcqnqrqWISKDBRYQ8799-27-09 10:15:00 Test Item Value Reference Range Interpretation Comments Sodium Lvl (test code = Sodium Lvl) 135 135-145 [facility] CenterDpfirhqOHRGNGLED3158-45-86 10:15:00 Test Item Value Reference Range Interpretation Comments Potassium Lvl (test code = Potassium 4.2 3.5-5.1 Lvl) [facility] CenterXitftsaPHNGPQAQA5359-55-39 10:15:00 Test Item Value Reference Range Interpretation Comments Chloride Lvl (test code = Chloride Lvl) 101 95-109 [facility] CenterSmbbjqkFDCTNUESH5224-43-33 10:15:00 Test Item Value Reference Range Interpretation Comments CO2 (test code = CO2) 30 24-32 [facility] CenterSujteyaAREFPZPGG1325-70-94 10:15:00 Test Item Value Reference Range Interpretation Comments AGAP (test code = AGAP) 8.2 10.0-20.0 [facility] CenterMgvnvytBHILRHFDJ4064-10-97 10:15:00 Test Item Value Reference Range Interpretation Comments Calcium Lvl (test code = Calcium Lvl) 8.9 8.5-10.5 [facility] CenterZmqcdkxGOUYYEDWU6945-04-58 10:15:00 Test Item Value Reference Range Interpretation Comments eGFR (test code = eGFR) 116 [facility] CenterEwmjxwiYQVKTEQVS4023-78-50 10:15:00 Test Item Value Reference Range Interpretation Comments Magnesium Lvl (test code = Magnesium 1.9 1.8-2.4 Lvl) [facility] CenterNhrssmtJNMUWHKMM1915-03-48 10:15:00 Test Item Value Reference Range Interpretation Comments Phosphorus (test code = Phosphorus) 4.2 2.5-4.5 [facility] CenterLnwmmuwZSIBXPDPD0049-45-41 10:15:00 Test Item Value Reference Range Interpretation Comments Ca Ion WB (test code = Ca Ion WB) 1.23 1.05-1.25 [facility] CenterTvgizrtIPQRZGIPM2570-44-99 10:15:00 Test Item Value Reference Range Interpretation Comments Ca Ion at pH 7.4 WB (test code = Ca Ion 1.19 1.05-1.25 at pH 7.4 WB) [facility] HospitalWvthdhwTSNIYLWXZV1289-10-06 10:15:00 Test Item Value Reference Range Interpretation Comments WBC (test code = WBC) 10.9 3.7-10.4 [facility] HospitalNezyejqIRDUEYSLNM5020-06-95 10:15:00 Test Item Value Reference Range Interpretation Comments RBC (test code = RBC) 2.89 4.20-5.40 [facility] HospitalFmvagenVAHVBKIBOL1461-78-83 10:15:00 Test Item Value Reference Range Interpretation Comments Hgb (test code = Hgb) 8.2 12.0-16.0 [facility] HospitalNjswzchQBPELRMPWM0565-97-84 10:15:00 Test Item Value Reference Range Interpretation Comments Hct (test code = Hct) 24.5 36.0-48.0 [facility] HospitalMtnkmleYSMDVTAGVK3052-54-88 10:15:00 Test Item Value Reference Range Interpretation Comments MCV (test code = MCV) 84.7 80.0-98.0 [facility] HospitalTgdusbuDMLBGHWCNB9734-99-38 10:15:00 Test Item Value Reference Range Interpretation Comments MCH (test code = MCH) 28.4 pg 27.0-31.0 [facility] HospitalDafztwkLQOAEJLQHE8056-28-43 10:15:00 Test Item Value Reference Range Interpretation Comments MCHC (test code = MCHC) 33.5 32.0-36.0 [place] 406462-10-30 10:15:00 Test Item Value Reference Range Interpretation Comments RDW (test code = RDW) 13.5 11.5-14.5 [facility] HospitalRuwhpnoNYQOZVMKCN4373-80-57 10:15:00 Test Item Value Reference Range Interpretation Comments Platelet (test code = Platelet) 459 958-489 [facility] HospitalKvrvtbcDGYHPFDCTK0309-19-10 10:15:00 Test Item Value Reference Range Interpretation Comments MPV (test code = MPV) 8.1 7.4-10.4 [place] 406462-10-30 10:15:00 Test Item Value Reference Range Interpretation Comments Segs (test code = Segs) 59.9 45.0-75.0 [place] 406462-10-30 10:15:00 Test Item Value Reference Range Interpretation Comments Lymphocytes (test code = Lymphocytes) 31.3 20.0-40.0 [place] 406462-10-30 10:15:00 Test Item Value Reference Range Interpretation Comments Monocytes (test code = Monocytes) 4.9 2.0-12.0 [place] 406462-10-30 10:15:00 Test Item Value Reference Range Interpretation Comments Eosinophils (test code = 3.3 See_Comment [A utomated message] The Eosinophils) system which ge nerated this result tra nsmitted reference range : <=4.0. The reference r kyle was not used to int erpret this result as normal/abnormal . [facility]XagqbykTMUYQIZOZT9529-45-87 10:15:00 Test Item Value Reference Range Interpretation Comments Basophils (test code = 0.6 See_Comment [Aut omated message] The Basophils) system which ge nerated this result tra nsmitted reference range : <=1.0. The reference r kyle was not used to int erpret this result as normal/abnormal . [facility] HospitalYdempprZCLMPTIRJN5330-95-71 10:15:00 Test Item Value Reference Range Interpretation Comments Neutrophils # (test code = Neutrophils 6.5 1.5-8.1 #) [facility] HospitalXgqjtsgFMJYCDWCIQ2964-11-74 10:15:00 Test Item Value Reference Range Interpretation Comments Lymphocytes # (test code = Lymphocytes 3.4 1.0-5.5 #) [facility] HospitalUcxeuqjDNXPGRPTGW5554-30-77 10:15:00 Test Item Value Reference Range Interpretation Comments Monocytes # (test code 0.5 See_Comment [Aut omated message] The = Monocytes #) system which generated this result tra nsmitted reference range : <=0.8. The reference r kyle was not used to int erpret this result as normal/abnormal . [facility] HospitalBlvkkcqXFIVGSVZGD3132-07-06 10:15:00 Test Item Value Reference Range Interpretation Comments Eosinophils # (test code 0.4 See_Comment [A utomated message] The = Eosinophils #) system whic h generated this result tra nsmitted reference range : <=0.5. The reference r kyle was not used to int erpret this result as normal/abnormal . [facility] HospitalUmiijzhGCJBISPGGV1186-71-07 10:15:00 Test Item Value Reference Range Interpretation Comments Basophils # (test code 0.1 See_Comment [Aut omated message] The = Basophils #) system which generated this result tra nsmitted reference range : <=0.2. The reference r kyle was not used to int erpret this result as normal/abnormal . [facility]UtzeylgNJXCLZYBA5204-04-40 10:15:00 Test Item Value Reference Range Interpretation Comments Glucose Lvl (test code = Glucose Lvl) 141 70-99 [facility] CenterJcagcuxDZSRFOGBP2842-06-52 10:15:00 Test Item Value Reference Range Interpretation Comments BUN (test code = BUN) 12 7-22 [facility] CenterUrxpdruVRMWZZBTF5110-28-18 10:15:00 Test Item Value Reference Range Interpretation Comments Creatinine Lvl (test code = Creatinine 0.42 0.50-1.40 Lvl) [facility] CenterFdzwsrvKPYFZFRGK5488-50-41 10:15:00 Test Item Value Reference Range Interpretation Comments Sodium Lvl (test code = Sodium Lvl) 135 135-145 [facility] CenterMaozbkiMNEKNXRPP9293-74-99 10:15:00 Test Item Value Reference Range Interpretation Comments Potassium Lvl (test code = Potassium 4.2 3.5-5.1 Lvl) [facility] CenterUkcmobeMEIFSKGYV0436-97-65 10:15:00 Test Item Value Reference Range Interpretation Comments Chloride Lvl (test code = Chloride Lvl) 101 95-109 [facility] CenterAogooouHTPLJFATP3380-53-08 10:15:00 Test Item Value Reference Range Interpretation Comments CO2 (test code = CO2) 30 24-32 [facility] CenterWdiltbrRDNKXKDUT4316-96-57 10:15:00 Test Item Value Reference Range Interpretation Comments AGAP (test code = AGAP) 8.2 10.0-20.0 [facility] CenterPbwuvftWNCBDIUGD2998-75-94 10:15:00 Test Item Value Reference Range Interpretation Comments Calcium Lvl (test code = Calcium Lvl) 8.9 8.5-10.5 [facility] CenterQbjixxlSAVNOPMPE5810-66-77 10:15:00 Test Item Value Reference Range Interpretation Comments eGFR (test code = eGFR) 116 [facility] CenterRimnxijMOHONTHXP7338-94-42 10:15:00 Test Item Value Reference Range Interpretation Comments Magnesium Lvl (test code = Magnesium 1.9 1.8-2.4 Lvl) [facility] CenterJyoaayxFEJQAUZBU4542-66-57 10:15:00 Test Item Value Reference Range Interpretation Comments Phosphorus (test code = Phosphorus) 4.2 2.5-4.5 [place] 223672-10-30 10:15:00 Test Item Value Reference Range Interpretation Comments Ca Ion WB (test code = Ca Ion WB) 1.23 1.05-1.25 [facility] CenterXikjgdbYSLFSBHRN9625-50-10 10:15:00 Test Item Value Reference Range Interpretation Comments Ca Ion at pH 7.4 WB (test code = Ca Ion 1.19 1.05-1.25 at pH 7.4 WB) [facility] HospitalFrwixcvQVWAYPJXIF2608-34-89 10:15:00 Test Item Value Reference Range Interpretation Comments WBC (test code = WBC) 10.9 3.7-10.4 [facility] HospitalMsweatwDZPLVZGTLH0501-69-91 10:15:00 Test Item Value Reference Range Interpretation Comments RBC (test code = RBC) 2.89 4.20-5.40 [place] 406462-10-30 10:15:00 Test Item Value Reference Range Interpretation Comments Hgb (test code = Hgb) 8.2 12.0-16.0 [place] 406462-10-30 10:15:00 Test Item Value Reference Range Interpretation Comments Hct (test code = Hct) 24.5 36.0-48.0 [place] 406462-10-30 10:15:00 Test Item Value Reference Range Interpretation Comments MCV (test code = MCV) 84.7 80.0-98.0 [place] [address]-10-30 10:15:00 Test Item Value Reference Range Interpretation Comments MCH (test code = MCH) 28.4 pg 27.0-31.0 [place] 406462-10-30 10:15:00 Test Item Value Reference Range Interpretation Comments MCHC (test code = MCHC) 33.5 32.0-36.0 [place] 406462-10-30 10:15:00 Test Item Value Reference Range Interpretation Comments RDW (test code = RDW) 13.5 11.5-14.5 [place] 406462-10-30 10:15:00 Test Item Value Reference Range Interpretation Comments Platelet (test code = Platelet) 459 133-450 [place] 406462-10-30 10:15:00 Test Item Value Reference Range Interpretation Comments MPV (test code = MPV) 8.1 7.4-10.4 [place] 406462-10-30 10:15:00 Test Item Value Reference Range Interpretation Comments Segs (test code = Segs) 59.9 45.0-75.0 [place] 406462-10-30 10:15:00 Test Item Value Reference Range Interpretation Comments Lymphocytes (test code = Lymphocytes) 31.3 20.0-40.0 [place] 406462-10-30 10:15:00 Test Item Value Reference Range Interpretation Comments Monocytes (test code = Monocytes) 4.9 2.0-12.0 [facility] HospitalCitanotKTPXRUKOZN1108-28-31 10:15:00 Test Item Value Reference Range Interpretation Comments Eosinophils (test code = 3.3 See_Comment [A utomated message] The Eosinophils) system which ge nerated this result tra nsmitted reference range : <=4.0. The reference r kyle was not used to int erpret this result as normal/abnormal . [facility] HospitalMwzcxkgYUKGJMMTMI9842-13-81 10:15:00 Test Item Value Reference Range Interpretation Comments Basophils (test code = 0.6 See_Comment [Aut omated message] The Basophils) system which ge nerated this result tra nsmitted reference range : <=1.0. The reference r kyle was not used to int erpret this result as normal/abnormal . [facility] HospitalHbnlmyiXHETPDZIJJ6239-02-53 10:15:00 Test Item Value Reference Range Interpretation Comments Neutrophils # (test code = Neutrophils 6.5 1.5-8.1 #) [facility] HospitalWiiwkruKBWMGEKAIF9118-25-93 10:15:00 Test Item Value Reference Range Interpretation Comments Lymphocytes # (test code = Lymphocytes 3.4 1.0-5.5 #) [facility] HospitalNbolqmcMGCJCESONA1021-38-80 10:15:00 Test Item Value Reference Range Interpretation Comments Monocytes # (test code 0.5 See_Comment [Aut omated message] The = Monocytes #) system which generated this result tra nsmitted reference range : <=0.8. The reference r kyle was not used to int erpret this result as normal/abnormal . [facility] HospitalTsakhmqRZZUQRZQIR2791-15-82 10:15:00 Test Item Value Reference Range Interpretation Comments Eosinophils # (test code 0.4 See_Comment [A utomated message] The = Eosinophils #) system whic h generated this result tra nsmitted reference range : <=0.5. The reference r kyle was not used to int erpret this result as normal/abnormal . [facility] HospitalPhigmmtZBCWHWXELQ1725-19-87 10:15:00 Test Item Value Reference Range Interpretation Comments Basophils # (test code 0.1 See_Comment [Aut omated message] The = Basophils #) system which generated this result tra nsmitted reference range : <=0.2. The reference r kyle was not used to int erpret this result as normal/abnormal . [facility] CenterGbpimwjFVSNIWHAF0652-66-16 10:15:00 Test Item Value Reference Range Interpretation Comments Glucose Lvl (test code = Glucose Lvl) 141 70-99 [facility] CenterObyhcpcUCTVBWUAE2485-07-56 10:15:00 Test Item Value Reference Range Interpretation Comments BUN (test code = BUN) 12 7-22 [facility] CenterCzgzhatRJZJMLOJW6540-85-56 10:15:00 Test Item Value Reference Range Interpretation Comments Creatinine Lvl (test code = Creatinine 0.42 0.50-1.40 Lvl) [facility] CenterPgqevgiSJADNMGFB1445-43-19 10:15:00 Test Item Value Reference Range Interpretation Comments Sodium Lvl (test code = Sodium Lvl) 135 135-145 [facility] CenterUlvwemfQOGXQMSBL0113-78-26 10:15:00 Test Item Value Reference Range Interpretation Comments Potassium Lvl (test code = Potassium 4.2 3.5-5.1 Lvl) [facility] CenterIzpvjbvBBELWRMHD9698-42-91 10:15:00 Test Item Value Reference Range Interpretation Comments Chloride Lvl (test code = Chloride Lvl) 101 95-109 [facility] CenterXwcqyrtCCJWZIKBY0264-47-39 10:15:00 Test Item Value Reference Range Interpretation Comments CO2 (test code = CO2) 30 24-32 [facility] CenterKviqorgOJMVTEFXQ0787-29-48 10:15:00 Test Item Value Reference Range Interpretation Comments AGAP (test code = AGAP) 8.2 10.0-20.0 [facility] CenterShscwphYXTVACHSY0956-28-57 10:15:00 Test Item Value Reference Range Interpretation Comments Calcium Lvl (test code = Calcium Lvl) 8.9 8.5-10.5 [facility] CenterZatbhldOHTXCUXEM0843-32-37 10:15:00 Test Item Value Reference Range Interpretation Comments eGFR (test code = eGFR) 116 [facility] CenterAcnoskbHRSPKDTJA7808-96-38 10:15:00 Test Item Value Reference Range Interpretation Comments Magnesium Lvl (test code = Magnesium 1.9 1.8-2.4 Lvl) [facility] CenterJpppvovGTRRFQYUK2461-55-84 10:15:00 Test Item Value Reference Range Interpretation Comments Phosphorus (test code = Phosphorus) 4.2 2.5-4.5 [facility] CenterTatkjryVHKNUHYSL6280-19-44 10:15:00 Test Item Value Reference Range Interpretation Comments Ca Ion WB (test code = Ca Ion WB) 1.23 1.05-1.25 [facility] CenterLppwfetPIDIKQDGQ4744-65-08 10:15:00 Test Item Value Reference Range Interpretation Comments Ca Ion at pH 7.4 WB (test code = Ca Ion 1.19 1.05-1.25 at pH 7.4 WB) [facility] HospitalMbqkaqaTLRWFAIGLY9312-32-67 10:15:00 Test Item Value Reference Range Interpretation Comments WBC (test code = WBC) 10.9 3.7-10.4 [facility] HospitalCqnppilRKPKCBDBVE6223-44-67 10:15:00 Test Item Value Reference Range Interpretation Comments RBC (test code = RBC) 2.89 4.20-5.40 [facility] HospitalZfajzpfZRSZKDHYSB1540-54-39 10:15:00 Test Item Value Reference Range Interpretation Comments Hgb (test code = Hgb) 8.2 12.0-16.0 [facility] HospitalGwgeyusIEGYDBUOJN8223-36-88 10:15:00 Test Item Value Reference Range Interpretation Comments Hct (test code = Hct) 24.5 36.0-48.0 [facility] HospitalSximasyPSJUMJAUWM7633-07-91 10:15:00 Test Item Value Reference Range Interpretation Comments MCV (test code = MCV) 84.7 80.0-98.0 [place] 406462-10-30 10:15:00 Test Item Value Reference Range Interpretation Comments MCH (test code = MCH) 28.4 pg 27.0-31.0 [place] 406462-10-30 10:15:00 Test Item Value Reference Range Interpretation Comments MCHC (test code = MCHC) 33.5 32.0-36.0 [facility] HospitalYnlezxjQGIKZOOGYY2371-72-33 10:15:00 Test Item Value Reference Range Interpretation Comments RDW (test code = RDW) 13.5 11.5-14.5 [place] 406462-10-30 10:15:00 Test Item Value Reference Range Interpretation Comments Platelet (test code = Platelet) 459 775-450 [place] 406462-10-30 10:15:00 Test Item Value Reference Range Interpretation Comments MPV (test code = MPV) 8.1 7.4-10.4 [place] 406462-10-30 10:15:00 Test Item Value Reference Range Interpretation Comments Segs (test code = Segs) 59.9 45.0-75.0 [place] [address]-10-30 10:15:00 Test Item Value Reference Range Interpretation Comments Lymphocytes (test code = Lymphocytes) 31.3 20.0-40.0 [place] 406462-10-30 10:15:00 Test Item Value Reference Range Interpretation Comments Monocytes (test code = Monocytes) 4.9 2.0-12.0 [place] 406462-10-30 10:15:00 Test Item Value Reference Range Interpretation Comments Eosinophils (test code = 3.3 See_Comment [A utomated message] The Eosinophils) system which ge nerated this result tra nsmitted reference range : <=4.0. The reference r kyle was not used to int erpret this result as normal/abnormal . [place] [address]-10-30 10:15:00 Test Item Value Reference Range Interpretation Comments Basophils (test code = 0.6 See_Comment [Aut omated message] The Basophils) system which ge nerated this result tra nsmitted reference range : <=1.0. The reference r kyle was not used to int erpret this result as normal/abnormal . [place] 406462-10-30 10:15:00 Test Item Value Reference Range Interpretation Comments Neutrophils # (test code = Neutrophils 6.5 1.5-8.1 #) [facility] HospitalByksskxCCKGKEOLMH5629-50-08 10:15:00 Test Item Value Reference Range Interpretation Comments Lymphocytes # (test code = Lymphocytes 3.4 1.0-5.5 #) [place] 406462-10-30 10:15:00 Test Item Value Reference Range Interpretation Comments Monocytes # (test code 0.5 See_Comment [Aut omated message] The = Monocytes #) system which generated this result tra nsmitted reference range : <=0.8. The reference r kyle was not used to int erpret this result as normal/abnormal . [place] 406462-10-30 10:15:00 Test Item Value Reference Range Interpretation Comments Eosinophils # (test code 0.4 See_Comment [A utomated message] The = Eosinophils #) system whic h generated this result tra nsmitted reference range : <=0.5. The reference r kyle was not used to int erpret this result as normal/abnormal . [facility] HospitalRamnkrsAMHEDKUWNU2116-91-80 10:15:00 Test Item Value Reference Range Interpretation Comments Basophils # (test code 0.1 See_Comment [Aut omated message] The = Basophils #) system which generated this result tra nsmitted reference range : <=0.2. The reference r kyle was not used to int erpret this result as normal/abnormal . [facility] CenterBvnasmoPATEJSJTM7285-66-21 10:15:00 Test Item Value Reference Range Interpretation Comments Glucose Lvl (test code = Glucose Lvl) 141 70-99 [facility] CenterJsghfxpRDRJAMQIG1176-64-64 10:15:00 Test Item Value Reference Range Interpretation Comments BUN (test code = BUN) 12 7-22 [facility] CenterAbyfjldFQDZSDZZF8916-58-38 10:15:00 Test Item Value Reference Range Interpretation Comments Creatinine Lvl (test code = Creatinine 0.42 0.50-1.40 Lvl) [facility] CenterFybloasNPLFTQLUP3564-80-05 10:15:00 Test Item Value Reference Range Interpretation Comments Sodium Lvl (test code = Sodium Lvl) 135 135-145 [facility] CenterJscyhqnVTPTJYNDV3478-39-09 10:15:00 Test Item Value Reference Range Interpretation Comments Potassium Lvl (test code = Potassium 4.2 3.5-5.1 Lvl) [facility] CenterYgynwkxTUSDCULOE7673-97-94 10:15:00 Test Item Value Reference Range Interpretation Comments Chloride Lvl (test code = Chloride Lvl) 101 95-109 [facility] CenterFujgkydUROBSPBKA5960-11-65 10:15:00 Test Item Value Reference Range Interpretation Comments CO2 (test code = CO2) 30 24-32 [facility] CenterQrrhmfnIBTLCJLMX5404-18-44 10:15:00 Test Item Value Reference Range Interpretation Comments AGAP (test code = AGAP) 8.2 10.0-20.0 [facility] CenterYsrecohVHWITWREK3111-10-95 10:15:00 Test Item Value Reference Range Interpretation Comments Calcium Lvl (test code = Calcium Lvl) 8.9 8.5-10.5 [facility] CenterRxxbereLUSVYWQNO5855-00-82 10:15:00 Test Item Value Reference Range Interpretation Comments eGFR (test code = eGFR) 116 [facility] CenterYuhbaajQBHJXUMRM3211-06-41 10:15:00 Test Item Value Reference Range Interpretation Comments Magnesium Lvl (test code = Magnesium 1.9 1.8-2.4 Lvl) [facility] CenterGhfhzfyHQDCUEJBB2706-12-07 10:15:00 Test Item Value Reference Range Interpretation Comments Phosphorus (test code = Phosphorus) 4.2 2.5-4.5 [facility] CenterZmwnoykBCLCBQYFP3921-21-63 10:15:00 Test Item Value Reference Range Interpretation Comments Ca Ion WB (test code = Ca Ion WB) 1.23 1.05-1.25 [facility] CenterVxwimacOOSNLPEOB8805-72-00 10:15:00 Test Item Value Reference Range Interpretation Comments Ca Ion at pH 7.4 WB (test code = Ca Ion 1.19 1.05-1.25 at pH 7.4 WB) [facility] HospitalWlrvetnQZMNNUXXYI9759-22-27 10:15:00 Test Item Value Reference Range Interpretation Comments WBC (test code = WBC) 10.9 3.7-10.4 [facility] HospitalSjymwwuKEHDMZTFDG0706-82-67 10:15:00 Test Item Value Reference Range Interpretation Comments RBC (test code = RBC) 2.89 4.20-5.40 [place] 406462-10-30 10:15:00 Test Item Value Reference Range Interpretation Comments Hgb (test code = Hgb) 8.2 12.0-16.0 [facility] HospitalLaactvhHVHCSGUPXW9139-83-74 10:15:00 Test Item Value Reference Range Interpretation Comments Hct (test code = Hct) 24.5 36.0-48.0 [place] 406462-10-30 10:15:00 Test Item Value Reference Range Interpretation Comments MCV (test code = MCV) 84.7 80.0-98.0 [place] 406462-10-30 10:15:00 Test Item Value Reference Range Interpretation Comments MCH (test code = MCH) 28.4 pg 27.0-31.0 [facility] HospitalGykgumcMYUDJQJSIF1019-18-46 10:15:00 Test Item Value Reference Range Interpretation Comments MCHC (test code = MCHC) 33.5 32.0-36.0 [facility] HospitalOpfkbxmCANKZWURMM9564-23-93 10:15:00 Test Item Value Reference Range Interpretation Comments RDW (test code = RDW) 13.5 11.5-14.5 [place] 406462-10-30 10:15:00 Test Item Value Reference Range Interpretation Comments Platelet (test code = Platelet) 459 896-450 [facility] HospitalGdpknkqTYOEVWIHWZ4761-72-15 10:15:00 Test Item Value Reference Range Interpretation Comments MPV (test code = MPV) 8.1 7.4-10.4 [place] 406462-10-30 10:15:00 Test Item Value Reference Range Interpretation Comments Segs (test code = Segs) 59.9 45.0-75.0 [facility] HospitalCmbmenjMCSXXKOTRD9950-46-88 10:15:00 Test Item Value Reference Range Interpretation Comments Lymphocytes (test code = Lymphocytes) 31.3 20.0-40.0 [place] 406462-10-30 10:15:00 Test Item Value Reference Range Interpretation Comments Monocytes (test code = Monocytes) 4.9 2.0-12.0 [place] 406462-10-30 10:15:00 Test Item Value Reference Range Interpretation Comments Eosinophils (test code = 3.3 See_Comment [A utomated message] The Eosinophils) system which ge nerated this result tra nsmitted reference range : <=4.0. The reference r kyle was not used to int erpret this result as normal/abnormal . [facility] HospitalYycmkqhXEHFBIBIER6026-29-58 10:15:00 Test Item Value Reference Range Interpretation Comments Basophils (test code = 0.6 See_Comment [Aut omated message] The Basophils) system which ge nerated this result tra nsmitted reference range : <=1.0. The reference r kyle was not used to int erpret this result as normal/abnormal . [facility] HospitalSclddjyDFEXBNALVZ9751-53-95 10:15:00 Test Item Value Reference Range Interpretation Comments Neutrophils # (test code = Neutrophils 6.5 1.5-8.1 #) [facility] HospitalVhhwfxhRSBXYEAUMT7474-23-26 10:15:00 Test Item Value Reference Range Interpretation Comments Lymphocytes # (test code = Lymphocytes 3.4 1.0-5.5 #) [facility] HospitalItdovwvPQSQQDMSKV3290-28-79 10:15:00 Test Item Value Reference Range Interpretation Comments Monocytes # (test code 0.5 See_Comment [Aut omated message] The = Monocytes #) system which generated this result tra nsmitted reference range : <=0.8. The reference r kyle was not used to int erpret this result as normal/abnormal . [facility] HospitalWjxhdztONOFBSYNLN2957-67-50 10:15:00 Test Item Value Reference Range Interpretation Comments Eosinophils # (test code 0.4 See_Comment [A utomated message] The = Eosinophils #) system whic h generated this result tra nsmitted reference range : <=0.5. The reference r kyle was not used to int erpret this result as normal/abnormal . [facility] HospitalVbxliuzPJSIZZZBFM3502-27-07 10:15:00 Test Item Value Reference Range Interpretation Comments Basophils # (test code 0.1 See_Comment [Aut omated message] The = Basophils #) system which generated this result tra nsmitted reference range : <=0.2. The reference r kyle was not used to int erpret this result as normal/abnormal . [facility] CenterFydfyqgMIQNBFWJG8896-00-71 10:15:00 Test Item Value Reference Range Interpretation Comments Glucose Lvl (test code = Glucose Lvl) 141 70-99 [facility] CenterTshpvldEOLTGBPDZ0397-38-16 10:15:00 Test Item Value Reference Range Interpretation Comments BUN (test code = BUN) 12 7-22 [facility] CenterEzlvxydGMQBJFICU8136-07-74 10:15:00 Test Item Value Reference Range Interpretation Comments Creatinine Lvl (test code = Creatinine 0.42 0.50-1.40 Lvl) [facility] CenterGznrqtjGJKUGPLKN2456-41-10 10:15:00 Test Item Value Reference Range Interpretation Comments Sodium Lvl (test code = Sodium Lvl) 135 135-145 [facility] CenterUfwuiikQWKXEWMGQ9820-64-69 10:15:00 Test Item Value Reference Range Interpretation Comments Potassium Lvl (test code = Potassium 4.2 3.5-5.1 Lvl) [facility] CenterLkaemibXJUECKHVC9228-32-62 10:15:00 Test Item Value Reference Range Interpretation Comments Chloride Lvl (test code = Chloride Lvl) 101 95-109 [facility] CenterPnlimupWHWUDCZRF1789-85-13 10:15:00 Test Item Value Reference Range Interpretation Comments CO2 (test code = CO2) 30 24-32 [facility] CenterOczrwggRCFOEKRNC8028-05-21 10:15:00 Test Item Value Reference Range Interpretation Comments AGAP (test code = AGAP) 8.2 10.0-20.0 [facility] CenterJivugbhNTZKHXSOQ6737-72-25 10:15:00 Test Item Value Reference Range Interpretation Comments Calcium Lvl (test code = Calcium Lvl) 8.9 8.5-10.5 [facility] CenterGcyudvuJNWZILSBP9430-85-07 10:15:00 Test Item Value Reference Range Interpretation Comments eGFR (test code = eGFR) 116 [facility] CenterSxkhoddLOUMECGII6258-18-28 10:15:00 Test Item Value Reference Range Interpretation Comments Magnesium Lvl (test code = Magnesium 1.9 1.8-2.4 Lvl) [facility] CenterExiziwcOYTMWZAXE1696-80-72 10:15:00 Test Item Value Reference Range Interpretation Comments Phosphorus (test code = Phosphorus) 4.2 2.5-4.5 [facility] CenterNxelgjaXPJGRZWSG8145-24-51 10:15:00 Test Item Value Reference Range Interpretation Comments Ca Ion WB (test code = Ca Ion WB) 1.23 1.05-1.25 [facility] CenterXtcdpqdODWCGOYHG3632-79-49 10:15:00 Test Item Value Reference Range Interpretation Comments Ca Ion at pH 7.4 WB (test code = Ca Ion 1.19 1.05-1.25 at pH 7.4 WB) [facility] HospitalSfsirrbURIOXNQUAU8937-84-69 10:15:00 Test Item Value Reference Range Interpretation Comments WBC (test code = WBC) 10.9 3.7-10.4 [facility]LjmfqtvJDQUNMHLNA2979-45-71 10:15:00 Test Item Value Reference Range Interpretation Comments RBC (test code = RBC) 2.89 4.20-5.40 [facility] HospitalNuxkcokNHQMYJFXAP7423-93-63 10:15:00 Test Item Value Reference Range Interpretation Comments Hgb (test code = Hgb) 8.2 12.0-16.0 [facility] HospitalFvhhvxuDELOAQFKSB8811-07-47 10:15:00 Test Item Value Reference Range Interpretation Comments Hct (test code = Hct) 24.5 36.0-48.0 [facility] HospitalLblikoqRCLEEXZLOG6069-25-49 10:15:00 Test Item Value Reference Range Interpretation Comments MCV (test code = MCV) 84.7 80.0-98.0 [facility] HospitalYlfwgitIWJHKKZLUQ7722-08-93 10:15:00 Test Item Value Reference Range Interpretation Comments MCH (test code = MCH) 28.4 pg 27.0-31.0 [facility] HospitalEnzxyhvXZNKSFWINO9022-12-93 10:15:00 Test Item Value Reference Range Interpretation Comments MCHC (test code = MCHC) 33.5 32.0-36.0 [facility] HospitalMojjlvbJSJNNTOOLK2889-44-32 10:15:00 Test Item Value Reference Range Interpretation Comments RDW (test code = RDW) 13.5 11.5-14.5 [facility] HospitalTtyggsiSSZUUZEMZJ0675-14-94 10:15:00 Test Item Value Reference Range Interpretation Comments Platelet (test code = Platelet) 459 190-450 [facility] HospitalVbatcfpMLWOPPUSSN3631-94-88 10:15:00 Test Item Value Reference Range Interpretation Comments MPV (test code = MPV) 8.1 7.4-10.4 [facility] HospitalTibfqfuVDWTSIVVHJ3914-49-24 10:15:00 Test Item Value Reference Range Interpretation Comments Segs (test code = Segs) 59.9 45.0-75.0 [facility] HospitalChkaeycPTJFLSTQJM1330-76-16 10:15:00 Test Item Value Reference Range Interpretation Comments Lymphocytes (test code = Lymphocytes) 31.3 20.0-40.0 [place] [address]-10-30 10:15:00 Test Item Value Reference Range Interpretation Comments Monocytes (test code = Monocytes) 4.9 2.0-12.0 [place] [address]-10-30 10:15:00 Test Item Value Reference Range Interpretation Comments Eosinophils (test code = 3.3 See_Comment [A utomated message] The Eosinophils) system which ge nerated this result tra nsmitted reference range : <=4.0. The reference r kyle was not used to int erpret this result as normal/abnormal . [place] [address]-10-30 10:15:00 Test Item Value Reference Range Interpretation Comments Basophils (test code = 0.6 See_Comment [Aut omated message] The Basophils) system which ge nerated this result tra nsmitted reference range : <=1.0. The reference r kyle was not used to int erpret this result as normal/abnormal . [place] [address]-10-30 10:15:00 Test Item Value Reference Range Interpretation Comments Neutrophils # (test code = Neutrophils 6.5 1.5-8.1 #) [place] [address]-10-30 10:15:00 Test Item Value Reference Range Interpretation Comments Lymphocytes # (test code = Lymphocytes 3.4 1.0-5.5 #) [place] [address]-10-30 10:15:00 Test Item Value Reference Range Interpretation Comments Monocytes # (test code 0.5 See_Comment [Aut omated message] The = Monocytes #) system which generated this result tra nsmitted reference range : <=0.8. The reference r kyle was not used to int erpret this result as normal/abnormal . [place] [address]-10-30 10:15:00 Test Item Value Reference Range Interpretation Comments Eosinophils # (test code 0.4 See_Comment [A utomated message] The = Eosinophils #) system whic h generated this result tra nsmitted reference range : <=0.5. The reference r kyle was not used to int erpret this result as normal/abnormal . [place] [address]-10-30 10:15:00 Test Item Value Reference Range Interpretation Comments Basophils # (test code 0.1 See_Comment [Aut omated message] The = Basophils #) system which generated this result tra nsmitted reference range : <=0.2. The reference r kyle was not used to int erpret this result as normal/abnormal . [facility]FwfkkmkFBPVWZHGK8633-95-97 10:15:00 Test Item Value Reference Range Interpretation Comments Glucose Lvl (test code = Glucose Lvl) 141 70-99 [facility] CenterUfalgaxQBMETNWGZ5134-36-59 10:15:00 Test Item Value Reference Range Interpretation Comments BUN (test code = BUN) 12 7-22 [facility] CenterYpuhfmtUPYQDCCUW2890-36-31 10:15:00 Test Item Value Reference Range Interpretation Comments Creatinine Lvl (test code = Creatinine 0.42 0.50-1.40 Lvl) [facility] CenterGgsomnyKDVRXZSJT9659-23-83 10:15:00 Test Item Value Reference Range Interpretation Comments Sodium Lvl (test code = Sodium Lvl) 135 135-145 [facility] CenterRezbmzvSVUPUQAGM4838-19-67 10:15:00 Test Item Value Reference Range Interpretation Comments Potassium Lvl (test code = Potassium 4.2 3.5-5.1 Lvl) [facility] CenterSxkyodyGESALHMCH1258-01-22 10:15:00 Test Item Value Reference Range Interpretation Comments Chloride Lvl (test code = Chloride Lvl) 101 95-109 [facility] CenterMvbqszqOFTHPFFMO7333-19-42 10:15:00 Test Item Value Reference Range Interpretation Comments CO2 (test code = CO2) 30 24-32 [facility] CenterElvtuiwAAGKHQJYX2240-40-07 10:15:00 Test Item Value Reference Range Interpretation Comments AGAP (test code = AGAP) 8.2 10.0-20.0 [facility] CenterPryixxaERONARXLS6143-35-62 10:15:00 Test Item Value Reference Range Interpretation Comments Calcium Lvl (test code = Calcium Lvl) 8.9 8.5-10.5 [facility] CenterGngokakAGCQYSVPV0067-36-64 10:15:00 Test Item Value Reference Range Interpretation Comments eGFR (test code = eGFR) 116 [facility] CenterObvalkoRDLXYTFPL3852-39-25 10:15:00 Test Item Value Reference Range Interpretation Comments Magnesium Lvl (test code = Magnesium 1.9 1.8-2.4 Lvl) [facility] CenterEpgouelLSEVSZAER0993-22-14 10:15:00 Test Item Value Reference Range Interpretation Comments Phosphorus (test code = Phosphorus) 4.2 2.5-4.5 [place] 223672-10-30 10:15:00 Test Item Value Reference Range Interpretation Comments Ca Ion WB (test code = Ca Ion WB) 1.23 1.05-1.25 [facility] CenterGyukdzrRSYZQRREP6624-88-63 10:15:00 Test Item Value Reference Range Interpretation Comments Ca Ion at pH 7.4 WB (test code = Ca Ion 1.19 1.05-1.25 at pH 7.4 WB) [facility] HospitalLpklkwsFTSVTNGFLL4546-33-56 10:15:00 Test Item Value Reference Range Interpretation Comments WBC (test code = WBC) 10.9 3.7-10.4 [facility] HospitalTkdtihbQCVJBXVJXW4864-67-25 10:15:00 Test Item Value Reference Range Interpretation Comments RBC (test code = RBC) 2.89 4.20-5.40 [facility] HospitalVnrtliwMUAUSGEFBJ0735-90-61 10:15:00 Test Item Value Reference Range Interpretation Comments Hgb (test code = Hgb) 8.2 12.0-16.0 [facility] HospitalTokqoyjBQQUMMZLCW3701-13-43 10:15:00 Test Item Value Reference Range Interpretation Comments Hct (test code = Hct) 24.5 36.0-48.0 [facility] HospitalHcohhgvTHYWGZNULW1251-70-68 10:15:00 Test Item Value Reference Range Interpretation Comments MCV (test code = MCV) 84.7 80.0-98.0 [facility] HospitalFcbmxqoLDFWUUKFMT0994-88-36 10:15:00 Test Item Value Reference Range Interpretation Comments MCH (test code = MCH) 28.4 pg 27.0-31.0 [facility] HospitalNziohkbOMDOORQYBT4726-60-39 10:15:00 Test Item Value Reference Range Interpretation Comments MCHC (test code = MCHC) 33.5 32.0-36.0 [facility] HospitalTtpupnbHZGWZMUXIB4812-30-34 10:15:00 Test Item Value Reference Range Interpretation Comments RDW (test code = RDW) 13.5 11.5-14.5 [facility] HospitalVjqpqdvPGXXFXAPNW5034-13-62 10:15:00 Test Item Value Reference Range Interpretation Comments Platelet (test code = Platelet) 452 174-450 [facility] HospitalMqlwgydZYKMADKJJQ4415-51-91 10:15:00 Test Item Value Reference Range Interpretation Comments MPV (test code = MPV) 8.1 7.4-10.4 [place] 406462-10-30 10:15:00 Test Item Value Reference Range Interpretation Comments Segs (test code = Segs) 59.9 45.0-75.0 [place] 406462-10-30 10:15:00 Test Item Value Reference Range Interpretation Comments Lymphocytes (test code = Lymphocytes) 31.3 20.0-40.0 [place] 406462-10-30 10:15:00 Test Item Value Reference Range Interpretation Comments Monocytes (test code = Monocytes) 4.9 2.0-12.0 [place] [address]-10-30 10:15:00 Test Item Value Reference Range Interpretation Comments Eosinophils (test code = 3.3 See_Comment [A utomated message] The Eosinophils) system which ge nerated this result tra nsmitted reference range : <=4.0. The reference r kyle was not used to int erpret this result as normal/abnormal . [place] [address]-10-30 10:15:00 Test Item Value Reference Range Interpretation Comments Basophils (test code = 0.6 See_Comment [Aut omated message] The Basophils) system which ge nerated this result tra nsmitted reference range : <=1.0. The reference r kyle was not used to int erpret this result as normal/abnormal . [facility] HospitalHhnayviWXXBQQMJGU9391-31-06 10:15:00 Test Item Value Reference Range Interpretation Comments Neutrophils # (test code = Neutrophils 6.5 1.5-8.1 #) [facility] HospitalCymjultDOKFUHLNPL5479-69-11 10:15:00 Test Item Value Reference Range Interpretation Comments Lymphocytes # (test code = Lymphocytes 3.4 1.0-5.5 #) [place] 406462-10-30 10:15:00 Test Item Value Reference Range Interpretation Comments Monocytes # (test code 0.5 See_Comment [Aut omated message] The = Monocytes #) system which generated this result tra nsmitted reference range : <=0.8. The reference r kyle was not used to int erpret this result as normal/abnormal . [place] 406462-10-30 10:15:00 Test Item Value Reference Range Interpretation Comments Eosinophils # (test code 0.4 See_Comment [A utomated message] The = Eosinophils #) system whic h generated this result tra nsmitted reference range : <=0.5. The reference r kyle was not used to int erpret this result as normal/abnormal . [facility] HospitalWhjioiqMAFPOCGBJZ1200-73-03 10:15:00 Test Item Value Reference Range Interpretation Comments Basophils # (test code 0.1 See_Comment [Aut omated message] The = Basophils #) system which generated this result tra nsmitted reference range : <=0.2. The reference r kyle was not used to int erpret this result as normal/abnormal . [facility] CenterAogwopzVNLXWPDRG9228-66-27 10:15:00 Test Item Value Reference Range Interpretation Comments Glucose Lvl (test code = Glucose Lvl) 141 70-99 [facility] CenterWddyqidFYASUWMCO4688-56-57 10:15:00 Test Item Value Reference Range Interpretation Comments BUN (test code = BUN) 12 7-22 [facility] CenterFvzobvlHUAILSCKP7839-81-51 10:15:00 Test Item Value Reference Range Interpretation Comments Creatinine Lvl (test code = Creatinine 0.42 0.50-1.40 Lvl) [facility] CenterPfatwctFNBRJMLDD5464-57-31 10:15:00 Test Item Value Reference Range Interpretation Comments Sodium Lvl (test code = Sodium Lvl) 135 135-145 [facility] CenterSfviiuvKOSICLEYX3878-60-59 10:15:00 Test Item Value Reference Range Interpretation Comments Potassium Lvl (test code = Potassium 4.2 3.5-5.1 Lvl) [facility] CenterSnkmisqQCXQLVJLC6603-25-53 10:15:00 Test Item Value Reference Range Interpretation Comments Chloride Lvl (test code = Chloride Lvl) 101 95-109 [facility] CenterQtolnfsPJCOQXHDX2347-68-42 10:15:00 Test Item Value Reference Range Interpretation Comments CO2 (test code = CO2) 30 24-32 [facility] CenterRmwmcybUTGSEUUVB0989-89-97 10:15:00 Test Item Value Reference Range Interpretation Comments AGAP (test code = AGAP) 8.2 10.0-20.0 [facility] CenterHwbgopjRHTNOQLPN1399-08-81 10:15:00 Test Item Value Reference Range Interpretation Comments Calcium Lvl (test code = Calcium Lvl) 8.9 8.5-10.5 [facility] CenterSzzwngqYSCHTNPJO1799-69-15 10:15:00 Test Item Value Reference Range Interpretation Comments eGFR (test code = eGFR) 116 [facility] CenterSwfmnxzSESQXNPJZ0420-43-22 10:15:00 Test Item Value Reference Range Interpretation Comments Magnesium Lvl (test code = Magnesium 1.9 1.8-2.4 Lvl) [facility] CenterCiscnosNGNXYRIIY5118-77-36 10:15:00 Test Item Value Reference Range Interpretation Comments Phosphorus (test code = Phosphorus) 4.2 2.5-4.5 [facility] CenterZfnzqooMTWKYLLZL5419-58-61 10:15:00 Test Item Value Reference Range Interpretation Comments Ca Ion WB (test code = Ca Ion WB) 1.23 1.05-1.25 [facility] CenterThmpochFTWOKJSKM0630-01-50 10:15:00 Test Item Value Reference Range Interpretation Comments Ca Ion at pH 7.4 WB (test code = Ca Ion 1.19 1.05-1.25 at pH 7.4 WB) [facility] HospitalYxgudqsYBHUHCNIZY5115-89-98 10:15:00 Test Item Value Reference Range Interpretation Comments WBC (test code = WBC) 10.9 3.7-10.4 [facility] HospitalPmxctqiOQYHPIDRDH1249-99-51 10:15:00 Test Item Value Reference Range Interpretation Comments RBC (test code = RBC) 2.89 4.20-5.40 [place] 406462-10-30 10:15:00 Test Item Value Reference Range Interpretation Comments Hgb (test code = Hgb) 8.2 12.0-16.0 [place] 406462-10-30 10:15:00 Test Item Value Reference Range Interpretation Comments Hct (test code = Hct) 24.5 36.0-48.0 [place] 406462-10-30 10:15:00 Test Item Value Reference Range Interpretation Comments MCV (test code = MCV) 84.7 80.0-98.0 [place] 406462-10-30 10:15:00 Test Item Value Reference Range Interpretation Comments MCH (test code = MCH) 28.4 pg 27.0-31.0 [place] 406462-10-30 10:15:00 Test Item Value Reference Range Interpretation Comments MCHC (test code = MCHC) 33.5 32.0-36.0 [place] 406462-10-30 10:15:00 Test Item Value Reference Range Interpretation Comments RDW (test code = RDW) 13.5 11.5-14.5 [place] 406462-10-30 10:15:00 Test Item Value Reference Range Interpretation Comments Platelet (test code = Platelet) 459 133-450 [place] 406462-10-30 10:15:00 Test Item Value Reference Range Interpretation Comments MPV (test code = MPV) 8.1 7.4-10.4 [place] 406462-10-30 10:15:00 Test Item Value Reference Range Interpretation Comments Segs (test code = Segs) 59.9 45.0-75.0 [place] 406462-10-30 10:15:00 Test Item Value Reference Range Interpretation Comments Lymphocytes (test code = Lymphocytes) 31.3 20.0-40.0 [place] 406462-10-30 10:15:00 Test Item Value Reference Range Interpretation Comments Monocytes (test code = Monocytes) 4.9 2.0-12.0 [place] 406462-10-30 10:15:00 Test Item Value Reference Range Interpretation Comments Eosinophils (test code = 3.3 See_Comment [A utomated message] The Eosinophils) system which ge nerated this result tra nsmitted reference range : <=4.0. The reference r kyle was not used to int erpret this result as normal/abnormal . [facility] HospitalMbqvtcyGHOFZISYRF5488-95-62 10:15:00 Test Item Value Reference Range Interpretation Comments Basophils (test code = 0.6 See_Comment [Aut omated message] The Basophils) system which ge nerated this result tra nsmitted reference range : <=1.0. The reference r kyle was not used to int erpret this result as normal/abnormal . [facility] HospitalRgqdwtrOZMKUIWDGV0188-91-03 10:15:00 Test Item Value Reference Range Interpretation Comments Neutrophils # (test code = Neutrophils 6.5 1.5-8.1 #) [place] 406462-10-30 10:15:00 Test Item Value Reference Range Interpretation Comments Lymphocytes # (test code = Lymphocytes 3.4 1.0-5.5 #) [place] 406462-10-30 10:15:00 Test Item Value Reference Range Interpretation Comments Monocytes # (test code 0.5 See_Comment [Aut omated message] The = Monocytes #) system which generated this result tra nsmitted reference range : <=0.8. The reference r kyle was not used to int erpret this result as normal/abnormal . [facility] HospitalUvffuiiDMJHYDWKRD1323-20-82 10:15:00 Test Item Value Reference Range Interpretation Comments Eosinophils # (test code 0.4 See_Comment [A utomated message] The = Eosinophils #) system whic h generated this result tra nsmitted reference range : <=0.5. The reference r kyle was not used to int erpret this result as normal/abnormal . [facility] HospitalMthzkqbGKDNFGSAPE0260-27-52 10:15:00 Test Item Value Reference Range Interpretation Comments Basophils # (test code 0.1 See_Comment [Aut omated message] The = Basophils #) system which generated this result tra nsmitted reference range : <=0.2. The reference r kyle was not used to int erpret this result as normal/abnormal . [facility] CenterOneubvtBGLFRASOY6823-79-46 10:15:00 Test Item Value Reference Range Interpretation Comments Glucose Lvl (test code = Glucose Lvl) 141 70-99 [facility] CenterBxrgzmgOFUXWLFZJ4199-90-51 10:15:00 Test Item Value Reference Range Interpretation Comments BUN (test code = BUN) 12 7-22 [facility] CenterGastwfcWJWRIUUPZ6952-18-34 10:15:00 Test Item Value Reference Range Interpretation Comments Creatinine Lvl (test code = Creatinine 0.42 0.50-1.40 Lvl) [facility] CenterKxuejyxXVHHGXGCI6657-14-71 10:15:00 Test Item Value Reference Range Interpretation Comments Sodium Lvl (test code = Sodium Lvl) 135 135-145 [facility] CenterAlpjmkhGKRNMZNXL5320-80-67 10:15:00 Test Item Value Reference Range Interpretation Comments Potassium Lvl (test code = Potassium 4.2 3.5-5.1 Lvl) [facility] CenterRojbgyiPVEGRNCOO7029-81-75 10:15:00 Test Item Value Reference Range Interpretation Comments Chloride Lvl (test code = Chloride Lvl) 101 95-109 [facility] CenterBhtnoyqUZMLHEVEM4116-93-84 10:15:00 Test Item Value Reference Range Interpretation Comments CO2 (test code = CO2) 30 24-32 [facility] CenterSodffxcXJLETKCJT7082-47-81 10:15:00 Test Item Value Reference Range Interpretation Comments AGAP (test code = AGAP) 8.2 10.0-20.0 [place] 223672-10-30 10:15:00 Test Item Value Reference Range Interpretation Comments Calcium Lvl (test code = Calcium Lvl) 8.9 8.5-10.5 [place] 223672-10-30 10:15:00 Test Item Value Reference Range Interpretation Comments eGFR (test code = eGFR) 116 [facility] CenterJjefcxiAIVIYJRLK9885-41-55 10:15:00 Test Item Value Reference Range Interpretation Comments Magnesium Lvl (test code = Magnesium 1.9 1.8-2.4 Lvl) [facility] CenterLcknqqoAIUUDGVNP0630-49-53 10:15:00 Test Item Value Reference Range Interpretation Comments Phosphorus (test code = Phosphorus) 4.2 2.5-4.5 [facility] CenterOxhifnxPFHBWBPSK6745-35-86 10:15:00 Test Item Value Reference Range Interpretation Comments Ca Ion WB (test code = Ca Ion WB) 1.23 1.05-1.25 [facility] CenterGzpinytSPDQPEHIM9574-30-85 10:15:00 Test Item Value Reference Range Interpretation Comments Ca Ion at pH 7.4 WB (test code = Ca Ion 1.19 1.05-1.25 at pH 7.4 WB) [facility] HospitalRulcwkoYNTPMLNZNU3020-57-04 10:15:00 Test Item Value Reference Range Interpretation Comments WBC (test code = WBC) 10.9 3.7-10.4 [facility] HospitalBbcgknwQCSHBUUNWJ8945-40-94 10:15:00 Test Item Value Reference Range Interpretation Comments RBC (test code = RBC) 2.89 4.20-5.40 [place] 406462-10-30 10:15:00 Test Item Value Reference Range Interpretation Comments Hgb (test code = Hgb) 8.2 12.0-16.0 [place] 406462-10-30 10:15:00 Test Item Value Reference Range Interpretation Comments Hct (test code = Hct) 24.5 36.0-48.0 [place] 406462-10-30 10:15:00 Test Item Value Reference Range Interpretation Comments MCV (test code = MCV) 84.7 80.0-98.0 [place] 406462-10-30 10:15:00 Test Item Value Reference Range Interpretation Comments MCH (test code = MCH) 28.4 pg 27.0-31.0 [facility] HospitalBzchmtvSMJYMQLZSM7811-87-96 10:15:00 Test Item Value Reference Range Interpretation Comments MCHC (test code = MCHC) 33.5 32.0-36.0 [facility] HospitalOsyuqejZIJVQLIWBY5439-79-06 10:15:00 Test Item Value Reference Range Interpretation Comments RDW (test code = RDW) 13.5 11.5-14.5 [facility] HospitalMqascuzONSRCQJSIQ1160-93-14 10:15:00 Test Item Value Reference Range Interpretation Comments Platelet (test code = Platelet) 459 133-450 [place] 406462-10-30 10:15:00 Test Item Value Reference Range Interpretation Comments MPV (test code = MPV) 8.1 7.4-10.4 [place] 406462-10-30 10:15:00 Test Item Value Reference Range Interpretation Comments Segs (test code = Segs) 59.9 45.0-75.0 [place] 406462-10-30 10:15:00 Test Item Value Reference Range Interpretation Comments Lymphocytes (test code = Lymphocytes) 31.3 20.0-40.0 [place] 406462-10-30 10:15:00 Test Item Value Reference Range Interpretation Comments Monocytes (test code = Monocytes) 4.9 2.0-12.0 [facility] HospitalAyailvbTKXUZMMRCD5275-89-74 10:15:00 Test Item Value Reference Range Interpretation Comments Eosinophils (test code = 3.3 See_Comment [A utomated message] The Eosinophils) system which ge nerated this result tra nsmitted reference range : <=4.0. The reference r kyle was not used to int erpret this result as normal/abnormal . [facility] HospitalDeogjlxPZXVVPSEBD2789-97-86 10:15:00 Test Item Value Reference Range Interpretation Comments Basophils (test code = 0.6 See_Comment [Aut omated message] The Basophils) system which ge nerated this result tra nsmitted reference range : <=1.0. The reference r kyle was not used to int erpret this result as normal/abnormal . [place] 406462-10-30 10:15:00 Test Item Value Reference Range Interpretation Comments Neutrophils # (test code = Neutrophils 6.5 1.5-8.1 #) [facility] HospitalEtssfdyMBAUNPGEHV7287-06-65 10:15:00 Test Item Value Reference Range Interpretation Comments Lymphocytes # (test code = Lymphocytes 3.4 1.0-5.5 #) [facility] HospitalCrqlfspFKGPLXOTHX2577-28-41 10:15:00 Test Item Value Reference Range Interpretation Comments Monocytes # (test code 0.5 See_Comment [Aut omated message] The = Monocytes #) system which generated this result tra nsmitted reference range : <=0.8. The reference r kyle was not used to int erpret this result as normal/abnormal . [facility] HospitalCkcoomqODEAEGNOLA7959-87-11 10:15:00 Test Item Value Reference Range Interpretation Comments Eosinophils # (test code 0.4 See_Comment [A utomated message] The = Eosinophils #) system whic h generated this result tra nsmitted reference range : <=0.5. The reference r kyle was not used to int erpret this result as normal/abnormal . [facility] HospitalEennslyEPOJUVHEFG6819-45-75 10:15:00 Test Item Value Reference Range Interpretation Comments Basophils # (test code 0.1 See_Comment [Aut omated message] The = Basophils #) system which generated this result tra nsmitted reference range : <=0.2. The reference r kyle was not used to int erpret this result as normal/abnormal . [facility] CenterPcbdkqoKYROSTQZO8058-59-28 10:15:00 Test Item Value Reference Range Interpretation Comments Glucose Lvl (test code = Glucose Lvl) 141 70-99 [facility] CenterAcebspsBXKGTVJQM0294-96-58 10:15:00 Test Item Value Reference Range Interpretation Comments BUN (test code = BUN) 12 7-22 [facility] CenterVrwdgbsUQBFWZXJE4571-23-99 10:15:00 Test Item Value Reference Range Interpretation Comments Creatinine Lvl (test code = Creatinine 0.42 0.50-1.40 Lvl) [facility] CenterLiubanfRKNIBVVPN1549-28-84 10:15:00 Test Item Value Reference Range Interpretation Comments Sodium Lvl (test code = Sodium Lvl) 135 135-145 [place] 223672-10-30 10:15:00 Test Item Value Reference Range Interpretation Comments Potassium Lvl (test code = Potassium 4.2 3.5-5.1 Lvl) [facility] CenterHxwyyeaPDVINFDUE7462-56-91 10:15:00 Test Item Value Reference Range Interpretation Comments Chloride Lvl (test code = Chloride Lvl) 101 95-109 [facility] CenterAwnifqcSVZABWONJ5175-47-59 10:15:00 Test Item Value Reference Range Interpretation Comments CO2 (test code = CO2) 30 24-32 [facility] CenterXuwtgfwFPHUVKMMZ7461-19-32 10:15:00 Test Item Value Reference Range Interpretation Comments AGAP (test code = AGAP) 8.2 10.0-20.0 [facility] CenterLvgowvoTXOAPBMJH6391-84-10 10:15:00 Test Item Value Reference Range Interpretation Comments Calcium Lvl (test code = Calcium Lvl) 8.9 8.5-10.5 [facility] CenterPqsuhtiMMYWLRHTU7871-21-92 10:15:00 Test Item Value Reference Range Interpretation Comments eGFR (test code = eGFR) 116 [facility] CenterIpmvanuEJIBVXUWH9650-82-48 10:15:00 Test Item Value Reference Range Interpretation Comments Magnesium Lvl (test code = Magnesium 1.9 1.8-2.4 Lvl) [facility] CenterRccqtpmCWOZLGREF4087-61-44 10:15:00 Test Item Value Reference Range Interpretation Comments Phosphorus (test code = Phosphorus) 4.2 2.5-4.5 [facility] CenterJkgigzdELFDZKLGX6562-47-17 10:15:00 Test Item Value Reference Range Interpretation Comments Ca Ion WB (test code = Ca Ion WB) 1.23 1.05-1.25 [facility] CenterLxotlmbRBOQJIDWN9630-54-61 10:15:00 Test Item Value Reference Range Interpretation Comments Ca Ion at pH 7.4 WB (test code = Ca Ion 1.19 1.05-1.25 at pH 7.4 WB) [facility]RkxhkbxZYAONXVHSL1804-09-18 10:15:00 Test Item Value Reference Range Interpretation Comments WBC (test code = WBC) 10.9 3.7-10.4 [facility] HospitalGvpybazWWAZYULPVQ1232-56-82 10:15:00 Test Item Value Reference Range Interpretation Comments RBC (test code = RBC) 2.89 4.20-5.40 [facility] HospitalUfqnurpMNUXPKDRPP2833-38-01 10:15:00 Test Item Value Reference Range Interpretation Comments Hgb (test code = Hgb) 8.2 12.0-16.0 [facility] HospitalUwdhavnQJTYUKFKBU4369-89-19 10:15:00 Test Item Value Reference Range Interpretation Comments Hct (test code = Hct) 24.5 36.0-48.0 [place] 406462-10-30 10:15:00 Test Item Value Reference Range Interpretation Comments MCV (test code = MCV) 84.7 80.0-98.0 [place] 406462-10-30 10:15:00 Test Item Value Reference Range Interpretation Comments MCH (test code = MCH) 28.4 pg 27.0-31.0 [facility] HospitalNosthwsISHQOAEADZ0693-12-06 10:15:00 Test Item Value Reference Range Interpretation Comments MCHC (test code = MCHC) 33.5 32.0-36.0 [place] 406462-10-30 10:15:00 Test Item Value Reference Range Interpretation Comments RDW (test code = RDW) 13.5 11.5-14.5 [place] 406462-10-30 10:15:00 Test Item Value Reference Range Interpretation Comments Platelet (test code = Platelet) 452 335-894 [facility] HospitalQrdwuaiEJSCQXCUSV5918-57-43 10:15:00 Test Item Value Reference Range Interpretation Comments MPV (test code = MPV) 8.1 7.4-10.4 [place] 406462-10-30 10:15:00 Test Item Value Reference Range Interpretation Comments Segs (test code = Segs) 59.9 45.0-75.0 [place] 406462-10-30 10:15:00 Test Item Value Reference Range Interpretation Comments Lymphocytes (test code = Lymphocytes) 31.3 20.0-40.0 [place] 406462-10-30 10:15:00 Test Item Value Reference Range Interpretation Comments Monocytes (test code = Monocytes) 4.9 2.0-12.0 [place] 406462-10-30 10:15:00 Test Item Value Reference Range Interpretation Comments Eosinophils (test code = 3.3 See_Comment [A utomated message] The Eosinophils) system which ge nerated this result tra nsmitted reference range : <=4.0. The reference r kyle was not used to int erpret this result as normal/abnormal . [facility] HospitalFkimtmzAPBXJORBCT5999-30-53 10:15:00 Test Item Value Reference Range Interpretation Comments Basophils (test code = 0.6 See_Comment [Aut omated message] The Basophils) system which ge nerated this result tra nsmitted reference range : <=1.0. The reference r kyle was not used to int erpret this result as normal/abnormal . [facility] HospitalWlonficSHDOJKDZUP1539-20-33 10:15:00 Test Item Value Reference Range Interpretation Comments Neutrophils # (test code = Neutrophils 6.5 1.5-8.1 #) [facility] HospitalFmnevviYEGTKJRJES0250-84-16 10:15:00 Test Item Value Reference Range Interpretation Comments Lymphocytes # (test code = Lymphocytes 3.4 1.0-5.5 #) [facility] HospitalMbxaulqNFEAEIZVPL1964-55-85 10:15:00 Test Item Value Reference Range Interpretation Comments Monocytes # (test code 0.5 See_Comment [Aut omated message] The = Monocytes #) system which generated this result tra nsmitted reference range : <=0.8. The reference r kyle was not used to int erpret this result as normal/abnormal . [facility] HospitalMdagowkZIZPOTMVHT7811-35-37 10:15:00 Test Item Value Reference Range Interpretation Comments Eosinophils # (test code 0.4 See_Comment [A utomated message] The = Eosinophils #) system whic h generated this result tra nsmitted reference range : <=0.5. The reference r kyle was not used to int erpret this result as normal/abnormal . [facility] HospitalNzwyjxsOISUHUKNXT4796-19-89 10:15:00 Test Item Value Reference Range Interpretation Comments Basophils # (test code 0.1 See_Comment [Aut omated message] The = Basophils #) system which generated this result tra nsmitted reference range : <=0.2. The reference r kyle was not used to int erpret this result as normal/abnormal . [facility] CenterYpimcphTJJTABWQV8379-64-77 10:15:00 Test Item Value Reference Range Interpretation Comments Glucose Lvl (test code = Glucose Lvl) 141 70-99 [facility] CenterWlaffbcMLNDKSNVK9482-24-83 10:15:00 Test Item Value Reference Range Interpretation Comments BUN (test code = BUN) 12 7-22 [facility] CenterIasppggIQXCFOZWV4251-34-80 10:15:00 Test Item Value Reference Range Interpretation Comments Creatinine Lvl (test code = Creatinine 0.42 0.50-1.40 Lvl) [facility] CenterQvetodgTNURDUKXM5634-15-18 10:15:00 Test Item Value Reference Range Interpretation Comments Sodium Lvl (test code = Sodium Lvl) 135 135-145 [facility] CenterUfqoaxxMCKLYPNTD9829-46-65 10:15:00 Test Item Value Reference Range Interpretation Comments Potassium Lvl (test code = Potassium 4.2 3.5-5.1 Lvl) [facility] CenterQedgjwwUSWQHJSZZ1817-66-10 10:15:00 Test Item Value Reference Range Interpretation Comments Chloride Lvl (test code = Chloride Lvl) 101 95-109 [facility] CenterHkegrrkQYAYVLIZA7937-70-27 10:15:00 Test Item Value Reference Range Interpretation Comments CO2 (test code = CO2) 30 24-32 [facility] CenterAmvmmkqPMHUSJNNO1481-30-56 10:15:00 Test Item Value Reference Range Interpretation Comments AGAP (test code = AGAP) 8.2 10.0-20.0 [facility] CenterBcdlkfgOPCHFBQKU5170-37-57 10:15:00 Test Item Value Reference Range Interpretation Comments Calcium Lvl (test code = Calcium Lvl) 8.9 8.5-10.5 [facility] CenterAdytcydYNVGVNTBV4008-62-20 10:15:00 Test Item Value Reference Range Interpretation Comments eGFR (test code = eGFR) 116 [facility] CenterObgcvkfPYTKKSMJR6027-98-65 10:15:00 Test Item Value Reference Range Interpretation Comments Magnesium Lvl (test code = Magnesium 1.9 1.8-2.4 Lvl) [facility] CenterDcrbfylTIMUIZUXL7590-57-72 10:15:00 Test Item Value Reference Range Interpretation Comments Phosphorus (test code = Phosphorus) 4.2 2.5-4.5 [facility] CenterFfudrhsWDIKKAMQZ9464-00-72 10:15:00 Test Item Value Reference Range Interpretation Comments Ca Ion WB (test code = Ca Ion WB) 1.23 1.05-1.25 [facility] CenterJowxewoMXVHSHSIC7874-06-21 10:15:00 Test Item Value Reference Range Interpretation Comments Ca Ion at pH 7.4 WB (test code = Ca Ion 1.19 1.05-1.25 at pH 7.4 WB) [facility] HospitalUcssstuEETTMXDPVI0264-67-76 10:15:00 Test Item Value Reference Range Interpretation Comments WBC (test code = WBC) 10.9 3.7-10.4 [facility] HospitalNtayvfpNKQOIAHRZZ7209-49-17 10:15:00 Test Item Value Reference Range Interpretation Comments RBC (test code = RBC) 2.89 4.20-5.40 [facility] HospitalAzdqyolTUDZMJCZXD7560-13-50 10:15:00 Test Item Value Reference Range Interpretation Comments Hgb (test code = Hgb) 8.2 12.0-16.0 [facility] HospitalRvkkmbyYIVAPWSZKG6585-22-29 10:15:00 Test Item Value Reference Range Interpretation Comments Hct (test code = Hct) 24.5 36.0-48.0 [facility] HospitalWnwmwdsZWKOXSOOWD7642-82-19 10:15:00 Test Item Value Reference Range Interpretation Comments MCV (test code = MCV) 84.7 80.0-98.0 [facility] HospitalQwltzixDHWHDEZLUW4680-45-05 10:15:00 Test Item Value Reference Range Interpretation Comments MCH (test code = MCH) 28.4 pg 27.0-31.0 [facility] HospitalTixcljcPMSJKMMSJJ0532-15-52 10:15:00 Test Item Value Reference Range Interpretation Comments MCHC (test code = MCHC) 33.5 32.0-36.0 [facility] HospitalQqmhkwpKCYBBFMCJK2401-59-92 10:15:00 Test Item Value Reference Range Interpretation Comments RDW (test code = RDW) 13.5 11.5-14.5 [facility] HospitalDyxoskrCAHQDRDXTU4774-65-80 10:15:00 Test Item Value Reference Range Interpretation Comments Platelet (test code = Platelet) 459 133-450 [facility] HospitalVorolcpSZXYSUNRAT6130-24-23 10:15:00 Test Item Value Reference Range Interpretation Comments MPV (test code = MPV) 8.1 7.4-10.4 [facility] HospitalTqxidcuTUUVIZAWKX5816-32-13 10:15:00 Test Item Value Reference Range Interpretation Comments Segs (test code = Segs) 59.9 45.0-75.0 [place] 406462-10-30 10:15:00 Test Item Value Reference Range Interpretation Comments Lymphocytes (test code = Lymphocytes) 31.3 20.0-40.0 [place] 406462-10-30 10:15:00 Test Item Value Reference Range Interpretation Comments Monocytes (test code = Monocytes) 4.9 2.0-12.0 [place] 406462-10-30 10:15:00 Test Item Value Reference Range Interpretation Comments Eosinophils (test code = 3.3 See_Comment [A utomated message] The Eosinophils) system which ge nerated this result tra nsmitted reference range : <=4.0. The reference r kyle was not used to int erpret this result as normal/abnormal . [facility] HospitalHnzlhojUXUOESBZIJ6041-10-52 10:15:00 Test Item Value Reference Range Interpretation Comments Basophils (test code = 0.6 See_Comment [Aut omated message] The Basophils) system which ge nerated this result tra nsmitted reference range : <=1.0. The reference r kyle was not used to int erpret this result as normal/abnormal . [facility] HospitalUzpocgcKSSBYGUUXR9849-66-70 10:15:00 Test Item Value Reference Range Interpretation Comments Neutrophils # (test code = Neutrophils 6.5 1.5-8.1 #) [facility] HospitalEvpsynhLZVIHSIEPY6841-47-61 10:15:00 Test Item Value Reference Range Interpretation Comments Lymphocytes # (test code = Lymphocytes 3.4 1.0-5.5 #) [facility] HospitalXqwsdxdGQGFZTGWVY0088-92-30 10:15:00 Test Item Value Reference Range Interpretation Comments Monocytes # (test code 0.5 See_Comment [Aut omated message] The = Monocytes #) system which generated this result tra nsmitted reference range : <=0.8. The reference r kyle was not used to int erpret this result as normal/abnormal . [facility] HospitalIzplysgWPFUSXRAAC2393-90-57 10:15:00 Test Item Value Reference Range Interpretation Comments Eosinophils # (test code 0.4 See_Comment [A utomated message] The = Eosinophils #) system [facility] h generated this result tra nsmitted reference range : <=0.5. The reference r kyle was not used to int erpret this result as normal/abnormal . [facility] HospitalCmmgqhgFPTXBSAOKJ4691-28-19 10:15:00 Test Item Value Reference Range Interpretation Comments Basophils # (test code 0.1 See_Comment [Aut omated message] The = Basophils #) system which generated this result tra nsmitted reference range : <=0.2. The reference r kyle was not used to int erpret this result as normal/abnormal . [facility] CenterTgyuydqMOWDTJNSZ9418-10-27 10:15:00 Test Item Value Reference Range Interpretation Comments Glucose Lvl (test code = Glucose Lvl) 141 70-99 [facility] CenterQcylszqPOFVFVMFW1355-95-90 10:15:00 Test Item Value Reference Range Interpretation Comments BUN (test code = BUN) 12 7-22 [facility] CenterDiuydpsAWNTYPIOH7019-56-24 10:15:00 Test Item Value Reference Range Interpretation Comments Creatinine Lvl (test code = Creatinine 0.42 0.50-1.40 Lvl) [facility] CenterMjspkvnGJYCRAWJC7422-62-30 10:15:00 Test Item Value Reference Range Interpretation Comments Sodium Lvl (test code = Sodium Lvl) 135 135-145 [facility] CenterSyneoyvOPVZGKOGK1692-55-49 10:15:00 Test Item Value Reference Range Interpretation Comments Potassium Lvl (test code = Potassium 4.2 3.5-5.1 Lvl) [facility] CenterLwvwbdhJJTWVDURZ4350-55-12 10:15:00 Test Item Value Reference Range Interpretation Comments Chloride Lvl (test code = Chloride Lvl) 101 95-109 [facility] CenterXnobzkuJNUELXOSC9681-26-42 10:15:00 Test Item Value Reference Range Interpretation Comments CO2 (test code = CO2) 30 24-32 [facility] CenterLqktnmoTGJZDKONO3303-65-45 10:15:00 Test Item Value Reference Range Interpretation Comments AGAP (test code = AGAP) 8.2 10.0-20.0 [facility] CenterJwkfwgwIUGLNQAUK9880-73-61 10:15:00 Test Item Value Reference Range Interpretation Comments Calcium Lvl (test code = Calcium Lvl) 8.9 8.5-10.5 [facility] CenterDakgwpbTDVATGXVP0152-67-27 10:15:00 Test Item Value Reference Range Interpretation Comments eGFR (test code = eGFR) 116 [facility] CenterQxcgwrgKNCSAAMWZ6559-09-93 10:15:00 Test Item Value Reference Range Interpretation Comments Magnesium Lvl (test code = Magnesium 1.9 1.8-2.4 Lvl) [facility] CenterDkrnpiqIBXFTQEEV5537-36-24 10:15:00 Test Item Value Reference Range Interpretation Comments Phosphorus (test code = Phosphorus) 4.2 2.5-4.5 [facility] CenterCqpmwrjLMHXPTGOH9751-67-99 10:15:00 Test Item Value Reference Range Interpretation Comments Ca Ion WB (test code = Ca Ion WB) 1.23 1.05-1.25 [facility] CenterRkzvjzhFHQUZGPTY5367-98-22 10:15:00 Test Item Value Reference Range Interpretation Comments Ca Ion at pH 7.4 WB (test code = Ca Ion 1.19 1.05-1.25 at pH 7.4 WB) [facility] HospitalGywxzxaQQDETVIZYY2914-88-50 10:15:00 Test Item Value Reference Range Interpretation Comments WBC (test code = WBC) 10.9 3.7-10.4 [facility] HospitalKykgqsmXGXSKGCRWZ4233-78-47 10:15:00 Test Item Value Reference Range Interpretation Comments RBC (test code = RBC) 2.89 4.20-5.40 [facility] HospitalJbfueouKAEQUIICGT7003-19-26 10:15:00 Test Item Value Reference Range Interpretation Comments Hgb (test code = Hgb) 8.2 12.0-16.0 [facility] HospitalQblahzpHSTBVULNLR8726-11-42 10:15:00 Test Item Value Reference Range Interpretation Comments Hct (test code = Hct) 24.5 36.0-48.0 [facility] HospitalBknpoawPYYPMIPLRC1575-02-39 10:15:00 Test Item Value Reference Range Interpretation Comments MCV (test code = MCV) 84.7 80.0-98.0 [facility] HospitalMqiprreQOUUFAIXTI3697-71-35 10:15:00 Test Item Value Reference Range Interpretation Comments MCH (test code = MCH) 28.4 pg 27.0-31.0 [facility] HospitalMddmzzqYLCBFSZKUG2945-55-98 10:15:00 Test Item Value Reference Range Interpretation Comments MCHC (test code = MCHC) 33.5 32.0-36.0 [facility] HospitalBdmsuilMDZQSGCERL1952-35-87 10:15:00 Test Item Value Reference Range Interpretation Comments RDW (test code = RDW) 13.5 11.5-14.5 [facility] HospitalChlaqihYGHSNYDKZQ1210-85-61 10:15:00 Test Item Value Reference Range Interpretation Comments Platelet (test code = Platelet) 459 205-450 [facility] HospitalAsbgtlzFEWYLNYNRN7646-84-72 10:15:00 Test Item Value Reference Range Interpretation Comments MPV (test code = MPV) 8.1 7.4-10.4 [place] 406462-10-30 10:15:00 Test Item Value Reference Range Interpretation Comments Segs (test code = Segs) 59.9 45.0-75.0 [facility] HospitalNzgzorlGEJDBTXDFS1985-09-21 10:15:00 Test Item Value Reference Range Interpretation Comments Lymphocytes (test code = Lymphocytes) 31.3 20.0-40.0 [facility] HospitalJxmjeylRPXXLQJZEI1704-06-99 10:15:00 Test Item Value Reference Range Interpretation Comments Monocytes (test code = Monocytes) 4.9 2.0-12.0 [place] 406462-10-30 10:15:00 Test Item Value Reference Range Interpretation Comments Eosinophils (test code = 3.3 See_Comment [A utomated message] The Eosinophils) system which ge nerated this result tra nsmitted reference range : <=4.0. The reference r kyle was not used to int erpret this result as normal/abnormal . [facility] HospitalGnjmmwfCAAMGSUQLN8079-88-94 10:15:00 Test Item Value Reference Range Interpretation Comments Basophils (test code = 0.6 See_Comment [Aut omated message] The Basophils) system which ge nerated this result tra nsmitted reference range : <=1.0. The reference r kyle was not used to int erpret this result as normal/abnormal . [facility] HospitalCmmtpviUSXFXBGDYA3451-55-49 10:15:00 Test Item Value Reference Range Interpretation Comments Neutrophils # (test code = Neutrophils 6.5 1.5-8.1 #) [facility] HospitalRlrddqaVDLPKQQCRD9064-69-79 10:15:00 Test Item Value Reference Range Interpretation Comments Lymphocytes # (test code = Lymphocytes 3.4 1.0-5.5 #) [facility] HospitalRyisiypJIXUYMKNZR7502-13-89 10:15:00 Test Item Value Reference Range Interpretation Comments Monocytes # (test code 0.5 See_Comment [Aut omated message] The = Monocytes #) system which generated this result tra nsmitted reference range : <=0.8. The reference r kyle was not used to int erpret this result as normal/abnormal . [facility] HospitalSppfqxsHWEKOOMHXI2450-37-59 10:15:00 Test Item Value Reference Range Interpretation Comments Eosinophils # (test code 0.4 See_Comment [A utomated message] The = Eosinophils #) system whic h generated this result tra nsmitted reference range : <=0.5. The reference r kyle was not used to int erpret this result as normal/abnormal . [facility] HospitalJkgbsacVMGGNXDIGR6227-19-51 10:15:00 Test Item Value Reference Range Interpretation Comments Basophils # (test code 0.1 See_Comment [Aut omated message] The = Basophils #) system which generated this result tra nsmitted reference range : <=0.2. The reference r kyle was not used to int erpret this result as normal/abnormal . [facility] CenterOprwiftGDYJITIEM2088-07-54 10:15:00 Test Item Value Reference Range Interpretation Comments Glucose Lvl (test code = Glucose Lvl) 141 70-99 [facility] CenterLgjpdyuIWFKKUIYA0017-87-21 10:15:00 Test Item Value Reference Range Interpretation Comments BUN (test code = BUN) 12 7-22 [facility] CenterTbisvnuNBWICKMVO5737-42-36 10:15:00 Test Item Value Reference Range Interpretation Comments Creatinine Lvl (test code = Creatinine 0.42 0.50-1.40 Lvl) [facility] CenterHqlzqnlVYECASSGU6152-84-43 10:15:00 Test Item Value Reference Range Interpretation Comments Sodium Lvl (test code = Sodium Lvl) 135 135-145 [facility] CenterVsyfbciACQMRRVZG0412-78-09 10:15:00 Test Item Value Reference Range Interpretation Comments Potassium Lvl (test code = Potassium 4.2 3.5-5.1 Lvl) [facility] CenterEdatnnuOIXCHKCQJ2106-62-95 10:15:00 Test Item Value Reference Range Interpretation Comments Chloride Lvl (test code = Chloride Lvl) 101 95-109 [facility] CenterYexdlzhBRIMRZRAN5671-25-77 10:15:00 Test Item Value Reference Range Interpretation Comments CO2 (test code = CO2) 30 24-32 [facility] CenterEzqlvscBQAUGRZSO1660-45-17 10:15:00 Test Item Value Reference Range Interpretation Comments AGAP (test code = AGAP) 8.2 10.0-20.0 [facility] CenterXcfblsqADRQYMMHW8417-79-06 10:15:00 Test Item Value Reference Range Interpretation Comments Calcium Lvl (test code = Calcium Lvl) 8.9 8.5-10.5 [facility] CenterEiclfeqWYIOTVNFL0554-65-44 10:15:00 Test Item Value Reference Range Interpretation Comments eGFR (test code = eGFR) 116 [facility] CenterZdwzkdkAADVUYDDV6823-85-44 10:15:00 Test Item Value Reference Range Interpretation Comments Magnesium Lvl (test code = Magnesium 1.9 1.8-2.4 Lvl) [facility] CenterLxcpbmiAHCHHGATM4150-54-08 10:15:00 Test Item Value Reference Range Interpretation Comments Phosphorus (test code = Phosphorus) 4.2 2.5-4.5 [facility] CenterYbqgzsgMFMMTROQF1991-26-48 10:15:00 Test Item Value Reference Range Interpretation Comments Ca Ion WB (test code = Ca Ion WB) 1.23 1.05-1.25 [facility] CenterNjjmqhkTDAEGPCAJ2408-96-17 10:15:00 Test Item Value Reference Range Interpretation Comments Ca Ion at pH 7.4 WB (test code = Ca Ion 1.19 1.05-1.25 at pH 7.4 WB) [facility] HospitalLyrrrkaWWHBBYFAVW4529-31-72 10:15:00 Test Item Value Reference Range Interpretation Comments WBC (test code = WBC) 10.9 3.7-10.4 [facility] HospitalJkqinnkDDRYWZWSZM6276-21-15 10:15:00 Test Item Value Reference Range Interpretation Comments RBC (test code = RBC) 2.89 4.20-5.40 [facility] HospitalRwxevlyHYYFLXFMOS1419-91-83 10:15:00 Test Item Value Reference Range Interpretation Comments Hgb (test code = Hgb) 8.2 12.0-16.0 [facility] HospitalOctjehwSOMNMHWIOH2255-68-57 10:15:00 Test Item Value Reference Range Interpretation Comments Hct (test code = Hct) 24.5 36.0-48.0 [facility] HospitalEjjbuxeOYOKSJBPXC2026-55-81 10:15:00 Test Item Value Reference Range Interpretation Comments MCV (test code = MCV) 84.7 80.0-98.0 [facility] HospitalZbegxoqXCARBNHAJR3909-50-41 10:15:00 Test Item Value Reference Range Interpretation Comments MCH (test code = MCH) 28.4 pg 27.0-31.0 [facility] HospitalMkozfufGHKONVNTGT2173-40-78 10:15:00 Test Item Value Reference Range Interpretation Comments MCHC (test code = MCHC) 33.5 32.0-36.0 [facility] HospitalIyzsikuRMMOWYOPGA3975-12-16 10:15:00 Test Item Value Reference Range Interpretation Comments RDW (test code = RDW) 13.5 11.5-14.5 [facility] HospitalZoiqlncFVKQWOHXFK4372-95-93 10:15:00 Test Item Value Reference Range Interpretation Comments Platelet (test code = Platelet) 459 312-450 [facility] HospitalLlrpnviEYFPFXIZYS2721-56-03 10:15:00 Test Item Value Reference Range Interpretation Comments MPV (test code = MPV) 8.1 7.4-10.4 [facility] HospitalVoihempNJZZSKTELJ0604-90-01 10:15:00 Test Item Value Reference Range Interpretation Comments Segs (test code = Segs) 59.9 45.0-75.0 [facility] HospitalVyuyriuALLZEMYEBL1032-73-55 10:15:00 Test Item Value Reference Range Interpretation Comments Lymphocytes (test code = Lymphocytes) 31.3 20.0-40.0 [place] 406462-10-30 10:15:00 Test Item Value Reference Range Interpretation Comments Monocytes (test code = Monocytes) 4.9 2.0-12.0 [place] 406462-10-30 10:15:00 Test Item Value Reference Range Interpretation Comments Eosinophils (test code = 3.3 See_Comment [A utomated message] The Eosinophils) system which ge nerated this result tra nsmitted reference range : <=4.0. The reference r kyle was not used to int erpret this result as normal/abnormal . [facility] HospitalXawtirjFWJSHHZPOD3928-43-87 10:15:00 Test Item Value Reference Range Interpretation Comments Basophils (test code = 0.6 See_Comment [Aut omated message] The Basophils) system which ge nerated this result tra nsmitted reference range : <=1.0. The reference r ykle was not used to int erpret this result as normal/abnormal . [facility] HospitalNerlkblYCINFTBSNT1734-13-35 10:15:00 Test Item Value Reference Range Interpretation Comments Neutrophils # (test code = Neutrophils 6.5 1.5-8.1 #) [facility] [facility]12[facility]-74 10:15:00 Test Item Value Reference Range Interpretation Comments Lymphocytes # (test code = Lymphocytes 3.4 1.0-5.5 #) [place] 406462-10-30 10:15:00 Test Item Value Reference Range Interpretation Comments Monocytes # (test code 0.5 See_Comment [Aut omated message] The = Monocytes #) system which generated this result tra nsmitted reference range : <=0.8. The reference r kyle was not used to int erpret this result as normal/abnormal . [facility]JthkdbuWBZWNJMEOO0817-30-58 10:15:00 Test Item Value Reference Range Interpretation Comments Eosinophils # (test code 0.4 See_Comment [A utomated message] The = Eosinophils #) system whic h generated this result tra nsmitted reference range : <=0.5. The reference r kyle was not used to int erpret this result as normal/abnormal . [facility]vgiueuPZKPMPZKFW2907-36-32 10:15:00 Test Item Value Reference Range Interpretation Comments Basophils # (test code 0.1 See_Comment [Aut omated message] The = Basophils #) system which generated this result tra nsmitted reference range : <=0.2. The reference r kyle was not used to int erpret this result as normal/abnormal . [facility] UitjhlyTAPBQQTSY6762-35-10 10:15:00 Test Item Value Reference Range Interpretation Comments Glucose Lvl (test code = Glucose Lvl) 141 70-99 [facility] HospitalXfluueoUZWPWXEZU7625-13-08 10:15:00 Test Item Value Reference Range Interpretation Comments BUN (test code = BUN) 12 7-22 [facility] HospitalVzwxwudQDIIQBYJI9314-10-29 10:15:00 Test Item Value Reference Range Interpretation Comments Creatinine Lvl (test code = Creatinine 0.42 0.50-1.40 Lvl) [facility] HospitalTunvkmpDJWPAENBN1717-89-39 10:15:00 Test Item Value Reference Range Interpretation Comments Sodium Lvl (test code = Sodium Lvl) 135 135-145 [facility] HospitalUrxaaauOTGUAIUVU5500-15-22 10:15:00 Test Item Value Reference Range Interpretation Comments Potassium Lvl (test code = Potassium 4.2 3.5-5.1 Lvl) [facility] HospitalGakckqjWSXRBFAOW8916-81-32 10:15:00 Test Item Value Reference Range Interpretation Comments Chloride Lvl (test code = Chloride Lvl) 101 95-109 [facility] HospitalNugjlnaGLEBNDNQU1890-59-21 10:15:00 Test Item Value Reference Range Interpretation Comments CO2 (test code = CO2) 30 24-32 [facility] HospitalXuertvpYSDPCYFDG2334-78-31 10:15:00 Test Item Value Reference Range Interpretation Comments AGAP (test code = AGAP) 8.2 10.0-20.0 [facility] HospitalQppyobkRUXJFQUPZ9757-03-98 10:15:00 Test Item Value Reference Range Interpretation Comments Calcium Lvl (test code = Calcium Lvl) 8.9 8.5-10.5 [facility] CenterHavfbaxSGNZRPEKP8730-82-01 10:15:00 Test Item Value Reference Range Interpretation Comments eGFR (test code = eGFR) 116 [facility] CenterJvbnjxvFTBYPBOMR7017-58-86 10:15:00 Test Item Value Reference Range Interpretation Comments Magnesium Lvl (test code = Magnesium 1.9 1.8-2.4 Lvl) [facility] CenterQbnzbkqFKPMNORWV4084-43-86 10:15:00 Test Item Value Reference Range Interpretation Comments Phosphorus (test code = Phosphorus) 4.2 2.5-4.5 [facility] CenterHlviqkbFQEMIENFL9967-30-69 10:15:00 Test Item Value Reference Range Interpretation Comments Ca Ion WB (test code = Ca Ion WB) 1.23 1.05-1.25 [facility] CenterLyuqsnvUODSHQIBO1122-35-63 10:15:00 Test Item Value Reference Range Interpretation Comments Ca Ion at pH 7.4 WB (test code = Ca Ion 1.19 1.05-1.25 at pH 7.4 WB) [facility] HospitalWhprfyxYHEALBPEWY5552-94-70 10:15:00 Test Item Value Reference Range Interpretation Comments WBC (test code = WBC) 10.9 3.7-10.4 [facility] HospitalCsysjqeIYJPTZJITP4937-60-93 10:15:00 Test Item Value Reference Range Interpretation Comments RBC (test code = RBC) 2.89 4.20-5.40 [facility] HospitalEsuaqnfKIGURXCGZC6899-02-44 10:15:00 Test Item Value Reference Range Interpretation Comments Hgb (test code = Hgb) 8.2 12.0-16.0 [facility] HospitalByremdlKDDJCVLQMN9648-75-89 10:15:00 Test Item Value Reference Range Interpretation Comments Hct (test code = Hct) 24.5 36.0-48.0 [facility] HospitalPbylukaFSHSJEGXZC3831-10-32 10:15:00 Test Item Value Reference Range Interpretation Comments MCV (test code = MCV) 84.7 80.0-98.0 [facility] HospitalQmtlpxsMHFEWOZAJQ7889-00-56 10:15:00 Test Item Value Reference Range Interpretation Comments MCH (test code = MCH) 28.4 pg 27.0-31.0 [facility] HospitalKmulqmnEPDCYFKBEU5713-95-68 10:15:00 Test Item Value Reference Range Interpretation Comments MCHC (test code = MCHC) 33.5 32.0-36.0 [place] 406462-10-30 10:15:00 Test Item Value Reference Range Interpretation Comments RDW (test code = RDW) 13.5 11.5-14.5 [place] 406462-10-30 10:15:00 Test Item Value Reference Range Interpretation Comments Platelet (test code = Platelet) 459 133-450 [place] 406462-10-30 10:15:00 Test Item Value Reference Range Interpretation Comments MPV (test code = MPV) 8.1 7.4-10.4 [place] 406462-10-30 10:15:00 Test Item Value Reference Range Interpretation Comments Segs (test code = Segs) 59.9 45.0-75.0 [place] 406462-10-30 10:15:00 Test Item Value Reference Range Interpretation Comments Lymphocytes (test code = Lymphocytes) 31.3 20.0-40.0 [place] 406462-10-30 10:15:00 Test Item Value Reference Range Interpretation Comments Monocytes (test code = Monocytes) 4.9 2.0-12.0 [place] 406462-10-30 10:15:00 Test Item Value Reference Range Interpretation Comments Eosinophils (test code = 3.3 See_Comment [A utomated message] The Eosinophils) system which ge nerated this result tra nsmitted reference range : <=4.0. The reference r kyle was not used to int erpret this result as normal/abnormal . [facility] HospitalYmibxutWIWWVFAIOQ5546-55-28 10:15:00 Test Item Value Reference Range Interpretation Comments Basophils (test code = 0.6 See_Comment [Aut omated message] The Basophils) system which ge nerated this result tra nsmitted reference range : <=1.0. The reference r kyle was not used to int erpret this result as normal/abnormal . [place] 406462-10-30 10:15:00 Test Item Value Reference Range Interpretation Comments Neutrophils # (test code = Neutrophils 6.5 1.5-8.1 #) [place] 406462-10-30 10:15:00 Test Item Value Reference Range Interpretation Comments Lymphocytes # (test code = Lymphocytes 3.4 1.0-5.5 #) [place] 406462-10-30 10:15:00 Test Item Value Reference Range Interpretation Comments Monocytes # (test code 0.5 See_Comment [Aut omated message] The = Monocytes #) system which generated this result tra nsmitted reference range : <=0.8. The reference r kyle was not used to int erpret this result as normal/abnormal . [facility] HospitalHitstdeZKXXRXXVVA8761-23-43 10:15:00 Test Item Value Reference Range Interpretation Comments Eosinophils # (test code 0.4 See_Comment [A utomated message] The = Eosinophils #) system whic h generated this result tra nsmitted reference range : <=0.5. The reference r kyle was not used to int erpret this result as normal/abnormal . [facility] HospitalUytjeuqJIMQJXKXOE2082-92-87 10:15:00 Test Item Value Reference Range Interpretation Comments Basophils # (test code 0.1 See_Comment [Aut omated message] The = Basophils #) system which generated this result tra nsmitted reference range : <=0.2. The reference r kyle was not used to int erpret this result as normal/abnormal . [facility] CenterNtnittcMRYYUTRMS5493-99-52 10:15:00 Test Item Value Reference Range Interpretation Comments Glucose Lvl (test code = Glucose Lvl) 141 70-99 [facility] CenterIpuvhghAMDWUCGXZ8126-14-58 10:15:00 Test Item Value Reference Range Interpretation Comments BUN (test code = BUN) 12 7-22 [facility] CenterRvpntslPPNTXSODB1345-70-80 10:15:00 Test Item Value Reference Range Interpretation Comments Creatinine Lvl (test code = Creatinine 0.42 0.50-1.40 Lvl) [facility] CenterKrsvnjoYBHVNAAVY6233-17-61 10:15:00 Test Item Value Reference Range Interpretation Comments Sodium Lvl (test code = Sodium Lvl) 135 135-145 [facility] CenterTuclnwxVMTZVZOUG2803-89-44 10:15:00 Test Item Value Reference Range Interpretation Comments Potassium Lvl (test code = Potassium 4.2 3.5-5.1 Lvl) [facility] CenterUdbuvidBHCOXZHSI3265-84-21 10:15:00 Test Item Value Reference Range Interpretation Comments Chloride Lvl (test code = Chloride Lvl) 101 95-109 [facility] CenterCrlbbffRHLCRUEZJ5455-61-76 10:15:00 Test Item Value Reference Range Interpretation Comments CO2 (test code = CO2) 30 24-32 [facility] CenterVzvhhddGDCTRFTOM7566-48-27 10:15:00 Test Item Value Reference Range Interpretation Comments AGAP (test code = AGAP) 8.2 10.0-20.0 [place] 223672-10-30 10:15:00 Test Item Value Reference Range Interpretation Comments Calcium Lvl (test code = Calcium Lvl) 8.9 8.5-10.5 [facility] CenterTevxvxvEDDOFCOPY8003-91-11 10:15:00 Test Item Value Reference Range Interpretation Comments eGFR (test code = eGFR) 116 [facility] CenterTnmypxrBWNDDCZZW6582-90-86 10:15:00 Test Item Value Reference Range Interpretation Comments Magnesium Lvl (test code = Magnesium 1.9 1.8-2.4 Lvl) [facility] CenterUuqaohrQJXHTSFIH5981-46-58 10:15:00 Test Item Value Reference Range Interpretation Comments Phosphorus (test code = Phosphorus) 4.2 2.5-4.5 [facility] CenterSiomdgtAIFTXLLXO1397-28-86 10:15:00 Test Item Value Reference Range Interpretation Comments Ca Ion WB (test code = Ca Ion WB) 1.23 1.05-1.25 [place] 223672-10-30 10:15:00 Test Item Value Reference Range Interpretation Comments Ca Ion at pH 7.4 WB (test code = Ca Ion 1.19 1.05-1.25 at pH 7.4 WB) [facility] HospitalIlgpllzHEYWFERAVZ1774-51-30 10:15:00 Test Item Value Reference Range Interpretation Comments WBC (test code = WBC) 10.9 3.7-10.4 [facility] HospitalZgtomtcOVXXNKVLHN7613-84-06 10:15:00 Test Item Value Reference Range Interpretation Comments RBC (test code = RBC) 2.89 4.20-5.40 [place] [address]-10-30 10:15:00 Test Item Value Reference Range Interpretation Comments Hgb (test code = Hgb) 8.2 12.0-16.0 [place] [address]-10-30 10:15:00 Test Item Value Reference Range Interpretation Comments Hct (test code = Hct) 24.5 36.0-48.0 [place] 406462-10-30 10:15:00 Test Item Value Reference Range Interpretation Comments MCV (test code = MCV) 84.7 80.0-98.0 [place] 406462-10-30 10:15:00 Test Item Value Reference Range Interpretation Comments MCH (test code = MCH) 28.4 pg 27.0-31.0 [facility] HospitalClhoivlKLXIKDWKTW2948-01-35 10:15:00 Test Item Value Reference Range Interpretation Comments MCHC (test code = MCHC) 33.5 32.0-36.0 [facility] HospitalLwdyzwvPXNMACLWTW0007-18-73 10:15:00 Test Item Value Reference Range Interpretation Comments RDW (test code = RDW) 13.5 11.5-14.5 [place] 406462-10-30 10:15:00 Test Item Value Reference Range Interpretation Comments Platelet (test code = Platelet) 459 502-450 [facility] HospitalTlzerlsVMOUVDTKWD9664-33-22 10:15:00 Test Item Value Reference Range Interpretation Comments MPV (test code = MPV) 8.1 7.4-10.4 [facility] HospitalNojvmlxRMDFALIAZV1262-84-46 10:15:00 Test Item Value Reference Range Interpretation Comments Segs (test code = Segs) 59.9 45.0-75.0 [place] 406462-10-30 10:15:00 Test Item Value Reference Range Interpretation Comments Lymphocytes (test code = Lymphocytes) 31.3 20.0-40.0 [facility] HospitalFcchypmSLFXSEIBSU0420-98-31 10:15:00 Test Item Value Reference Range Interpretation Comments Monocytes (test code = Monocytes) 4.9 2.0-12.0 [place] 406462-10-30 10:15:00 Test Item Value Reference Range Interpretation Comments Eosinophils (test code = 3.3 See_Comment [A utomated message] The Eosinophils) system which ge nerated this result tra nsmitted reference range : <=4.0. The reference r kyle was not used to int erpret this result as normal/abnormal . [facility] HospitalXhcbkkhOMOQWMGQTA4353-43-44 10:15:00 Test Item Value Reference Range Interpretation Comments Basophils (test code = 0.6 See_Comment [Aut omated message] The Basophils) system which ge nerated this result tra nsmitted reference range : <=1.0. The reference r kyle was not used to int erpret this result as normal/abnormal . [place] 406462-10-30 10:15:00 Test Item Value Reference Range Interpretation Comments Neutrophils # (test code = Neutrophils 6.5 1.5-8.1 #) [facility] HospitalBipfnawGYEGWQDBKI5717-61-05 10:15:00 Test Item Value Reference Range Interpretation Comments Lymphocytes # (test code = Lymphocytes 3.4 1.0-5.5 #) [facility] HospitalTjihipgQJQTLFFXIH6986-44-79 10:15:00 Test Item Value Reference Range Interpretation Comments Monocytes # (test code 0.5 See_Comment [Aut omated message] The = Monocytes #) system which generated this result tra nsmitted reference range : <=0.8. The reference r kyle was not used to int erpret this result as normal/abnormal . [facility] HospitalDrppcmlNNSELVXFPH9968-70-01 10:15:00 Test Item Value Reference Range Interpretation Comments Eosinophils # (test code 0.4 See_Comment [A utomated message] The = Eosinophils #) system whic h generated this result tra nsmitted reference range : <=0.5. The reference r kyle was not used to int erpret this result as normal/abnormal . [facility] HospitalQfbhulsKBYVLKYEBZ1700-78-50 10:15:00 Test Item Value Reference Range Interpretation Comments Basophils # (test code 0.1 See_Comment [Aut omated message] The = Basophils #) system which generated this result tra nsmitted reference range : <=0.2. The reference r kyle was not used to int erpret this result as normal/abnormal . [facility] CenterJyqzoniZEZZJBDHK3119-02-80 10:15:00 Test Item Value Reference Range Interpretation Comments Glucose Lvl (test code = Glucose Lvl) 141 70-99 [facility] CenterEcooyfqZCQZTDTGU5463-09-54 10:15:00 Test Item Value Reference Range Interpretation Comments BUN (test code = BUN) 12 7-22 [facility] CenterGrsjzlrKIOKYDJUP7294-27-42 10:15:00 Test Item Value Reference Range Interpretation Comments Creatinine Lvl (test code = Creatinine 0.42 0.50-1.40 Lvl) [facility] CenterDxhkabcENYKACMFW5063-32-27 10:15:00 Test Item Value Reference Range Interpretation Comments Sodium Lvl (test code = Sodium Lvl) 135 135-145 [facility] CenterZkgtifbGEMZOUFHO6598-01-69 10:15:00 Test Item Value Reference Range Interpretation Comments Potassium Lvl (test code = Potassium 4.2 3.5-5.1 Lvl) [facility] CenterZlqiapyGTQYWVJUR6221-37-71 10:15:00 Test Item Value Reference Range Interpretation Comments Chloride Lvl (test code = Chloride Lvl) 101 95-109 [facility] CenterYtrjayfJPHNCUMMX2172-98-49 10:15:00 Test Item Value Reference Range Interpretation Comments CO2 (test code = CO2) 30 24-32 [facility] CenterWhetugzHMARHGSPN6344-91-15 10:15:00 Test Item Value Reference Range Interpretation Comments AGAP (test code = AGAP) 8.2 10.0-20.0 [facility] CenterJvavigcNUFCOOOJX1644-80-81 10:15:00 Test Item Value Reference Range Interpretation Comments Calcium Lvl (test code = Calcium Lvl) 8.9 8.5-10.5 [facility] CenterQrnldchBEOMLVRJN8750-77-87 10:15:00 Test Item Value Reference Range Interpretation Comments eGFR (test code = eGFR) 116 [facility] CenterBlytojhQMBBWDNJJ0919-23-15 10:15:00 Test Item Value Reference Range Interpretation Comments Magnesium Lvl (test code = Magnesium 1.9 1.8-2.4 Lvl) [facility] CenterUdnnndeYRCSOZXTD4040-44-20 10:15:00 Test Item Value Reference Range Interpretation Comments Phosphorus (test code = Phosphorus) 4.2 2.5-4.5 [facility] CenterRswihjmGQIVLLTQM2155-79-89 10:15:00 Test Item Value Reference Range Interpretation Comments Ca Ion WB (test code = Ca Ion WB) 1.23 1.05-1.25 [facility] CenterAoatnepVYIVYPSBM8828-47-72 10:15:00 Test Item Value Reference Range Interpretation Comments Ca Ion at pH 7.4 WB (test code = Ca Ion 1.19 1.05-1.25 at pH 7.4 WB) [facility] HospitalSgliytdFHPDLGNWIP8681-81-59 10:15:00 Test Item Value Reference Range Interpretation Comments WBC (test code = WBC) 10.9 3.7-10.4 [facility] HospitalCmeifgyEKGCPJCSVL8914-06-05 10:15:00 Test Item Value Reference Range Interpretation Comments RBC (test code = RBC) 2.89 4.20-5.40 [facility] HospitalXrmkymiJYVASWYWHH0740-97-92 10:15:00 Test Item Value Reference Range Interpretation Comments Hgb (test code = Hgb) 8.2 12.0-16.0 [facility] HospitalCrvtlcsZAXWKMDWQI1981-91-42 10:15:00 Test Item Value Reference Range Interpretation Comments Hct (test code = Hct) 24.5 36.0-48.0 [facility] HospitalLptnwabQTAPVKOVSM1161-93-55 10:15:00 Test Item Value Reference Range Interpretation Comments MCV (test code = MCV) 84.7 80.0-98.0 [facility] HospitalTcuenicPERHEEXKMO4227-80-39 10:15:00 Test Item Value Reference Range Interpretation Comments MCH (test code = MCH) 28.4 pg 27.0-31.0 [facility] HospitalRtfalfjGYRXGFJWJB1582-16-04 10:15:00 Test Item Value Reference Range Interpretation Comments MCHC (test code = MCHC) 33.5 32.0-36.0 [facility] HospitalNauivmtVDHTMREBYU7679-35-09 10:15:00 Test Item Value Reference Range Interpretation Comments RDW (test code = RDW) 13.5 11.5-14.5 [facility] HospitalSnmrjxzQRQVXWSALC7179-64-47 10:15:00 Test Item Value Reference Range Interpretation Comments Platelet (test code = Platelet) 459 133-450 [facility] HospitalMuzxcekVSMXEDKZNT7816-73-68 10:15:00 Test Item Value Reference Range Interpretation Comments MPV (test code = MPV) 8.1 7.4-10.4 [facility] HospitalOzqfmijEBVJKWKGHV4665-34-07 10:15:00 Test Item Value Reference Range Interpretation Comments Segs (test code = Segs) 59.9 45.0-75.0 [facility] HospitalVixnhckESHVRUAQFT4513-29-35 10:15:00 Test Item Value Reference Range Interpretation Comments Lymphocytes (test code = Lymphocytes) 31.3 20.0-40.0 [facility] HospitalKiqygjdWISWWJYQLD6286-48-77 10:15:00 Test Item Value Reference Range Interpretation Comments Monocytes (test code = Monocytes) 4.9 2.0-12.0 [facility] HospitalGvmyeegMQYDPIMFIE2886-97-31 10:15:00 Test Item Value Reference Range Interpretation Comments Eosinophils (test code = 3.3 See_Comment [A utomated message] The Eosinophils) system which ge nerated this result tra nsmitted reference range : <=4.0. The reference r kyle was not used to int erpret this result as normal/abnormal . [place] [address]-10-30 10:15:00 Test Item Value Reference Range Interpretation Comments Basophils (test code = 0.6 See_Comment [Aut omated message] The Basophils) system which ge nerated this result tra nsmitted reference range : <=1.0. The reference r kyle was not used to int erpret this result as normal/abnormal . [facility] HospitalAdlstkpQKCDAQNGZZ0792-56-82 10:15:00 Test Item Value Reference Range Interpretation Comments Neutrophils # (test code = Neutrophils 6.5 1.5-8.1 #) [facility] HospitalGmzkewlUAIUVNGHLE2608-35-23 10:15:00 Test Item Value Reference Range Interpretation Comments Lymphocytes # (test code = Lymphocytes 3.4 1.0-5.5 #) [facility] HospitalGyijsrnESWWJQGIXQ6792-49-08 10:15:00 Test Item Value Reference Range Interpretation Comments Monocytes # (test code 0.5 See_Comment [Aut omated message] The = Monocytes #) system which generated this result tra nsmitted reference range : <=0.8. The reference r kyle was not used to int erpret this result as normal/abnormal . [facility] HospitalAzkopamNPBHMXJWZX7870-33-40 10:15:00 Test Item Value Reference Range Interpretation Comments Eosinophils # (test code 0.4 See_Comment [A utomated message] The = Eosinophils #) system whic h generated this result tra nsmitted reference range : <=0.5. The reference r kyle was not used to int erpret this result as normal/abnormal . [facility] HospitalLhaqxnsETVEUSCAGI7080-90-89 10:15:00 Test Item Value Reference Range Interpretation Comments Basophils # (test code 0.1 See_Comment [Aut omated message] The = Basophils #) system which generated this result tra nsmitted reference range : <=0.2. The reference r kyle was not used to int erpret this result as normal/abnormal . [facility] CenterOqvmfqaDKVSFDAKB8525-99-78 10:15:00 Test Item Value Reference Range Interpretation Comments Glucose Lvl (test code = Glucose Lvl) 141 70-99 [facility] CenterHdzxbgoYAWUIXUHK2645-91-61 10:15:00 Test Item Value Reference Range Interpretation Comments BUN (test code = BUN) 12 7-22 [facility] CenterBevyqagCXUPYYTOQ1583-35-37 10:15:00 Test Item Value Reference Range Interpretation Comments Creatinine Lvl (test code = Creatinine 0.42 0.50-1.40 Lvl) [facility] CenterJiwlukyPAQJXKGVP9781-95-94 10:15:00 Test Item Value Reference Range Interpretation Comments Sodium Lvl (test code = Sodium Lvl) 135 135-145 [facility] CenterVqmprgvBKWPJJOKL8138-22-90 10:15:00 Test Item Value Reference Range Interpretation Comments Potassium Lvl (test code = Potassium 4.2 3.5-5.1 Lvl) [facility] CenterLbhbwblQXTTDQCNP6418-44-72 10:15:00 Test Item Value Reference Range Interpretation Comments Chloride Lvl (test code = Chloride Lvl) 101 95-109 [facility] CenterNkbvcmsXUBJEROFB5910-30-68 10:15:00 Test Item Value Reference Range Interpretation Comments CO2 (test code = CO2) 30 24-32 [facility] CenterDscktttGTMKVHRQJ9250-82-86 10:15:00 Test Item Value Reference Range Interpretation Comments AGAP (test code = AGAP) 8.2 10.0-20.0 [facility] CenterHspexhzJNXNUCRPF4040-66-65 10:15:00 Test Item Value Reference Range Interpretation Comments Calcium Lvl (test code = Calcium Lvl) 8.9 8.5-10.5 [facility] CenterTqopaebBFYRBXPDS5155-37-19 10:15:00 Test Item Value Reference Range Interpretation Comments eGFR (test code = eGFR) 116 [facility] CenterXojlopcPHEHUUHQA5984-31-37 10:15:00 Test Item Value Reference Range Interpretation Comments Magnesium Lvl (test code = Magnesium 1.9 1.8-2.4 Lvl) [facility] CenterAykmxchNVTCDPULC6576-32-00 10:15:00 Test Item Value Reference Range Interpretation Comments Phosphorus (test code = Phosphorus) 4.2 2.5-4.5 [facility] CenterFwqefozYNGOJIMBW4858-58-78 10:15:00 Test Item Value Reference Range Interpretation Comments Ca Ion WB (test code = Ca Ion WB) 1.23 1.05-1.25 [facility] CenterTgqlzjrPKQFMLHQQ4904-73-04 10:15:00 Test Item Value Reference Range Interpretation Comments Ca Ion at pH 7.4 WB (test code = Ca Ion 1.19 1.05-1.25 at pH 7.4 WB) [facility] HospitalPsenecfODFKGRJXKA1981-59-83 10:15:00 Test Item Value Reference Range Interpretation Comments WBC (test code = WBC) 10.9 3.7-10.4 [facility] HospitalRnwsnzvRBENCESRGR9420-40-87 10:15:00 Test Item Value Reference Range Interpretation Comments RBC (test code = RBC) 2.89 4.20-5.40 [facility] HospitalQvykbckVWNMZKPLWX0136-58-07 10:15:00 Test Item Value Reference Range Interpretation Comments Hgb (test code = Hgb) 8.2 12.0-16.0 [place] 406462-10-30 10:15:00 Test Item Value Reference Range Interpretation Comments Hct (test code = Hct) 24.5 36.0-48.0 [facility] HospitalIpmqzyuAXPUXKVWJP7714-20-91 10:15:00 Test Item Value Reference Range Interpretation Comments MCV (test code = MCV) 84.7 80.0-98.0 [facility] HospitalKfkijhiVSOXLZBMIV2633-68-42 10:15:00 Test Item Value Reference Range Interpretation Comments MCH (test code = MCH) 28.4 pg 27.0-31.0 [facility] HospitalCqyeonbNBKILEHJDE1973-27-02 10:15:00 Test Item Value Reference Range Interpretation Comments MCHC (test code = MCHC) 33.5 32.0-36.0 [facility]QrogaylTUJHNHCSTG9749-50-56 10:15:00 Test Item Value Reference Range Interpretation Comments RDW (test code = RDW) 13.5 11.5-14.5 [facility] HospitalZdgkttlOEVJIRNYFK1969-65-10 10:15:00 Test Item Value Reference Range Interpretation Comments Platelet (test code = Platelet) 457 104-450 [facility] HospitalMizwtumEBYZRBMJPX2609-62-85 10:15:00 Test Item Value Reference Range Interpretation Comments MPV (test code = MPV) 8.1 7.4-10.4 [facility] HospitalDgkkpvaFVMRIDLXPO3717-22-31 10:15:00 Test Item Value Reference Range Interpretation Comments Segs (test code = Segs) 59.9 45.0-75.0 [place] 406462-10-30 10:15:00 Test Item Value Reference Range Interpretation Comments Lymphocytes (test code = Lymphocytes) 31.3 20.0-40.0 [place] 406462-10-30 10:15:00 Test Item Value Reference Range Interpretation Comments Monocytes (test code = Monocytes) 4.9 2.0-12.0 [facility] HospitalHzbhnghLGOSKOCUQM0082-55-86 10:15:00 Test Item Value Reference Range Interpretation Comments Eosinophils (test code = 3.3 See_Comment [A utomated message] The Eosinophils) system which ge nerated this result tra nsmitted reference range : <=4.0. The reference r kyle was not used to int erpret this result as normal/abnormal . [facility] HospitalRmthkplAUWDQICRBQ2189-75-77 10:15:00 Test Item Value Reference Range Interpretation Comments Basophils (test code = 0.6 See_Comment [Aut omated message] The Basophils) system which ge nerated this result tra nsmitted reference range : <=1.0. The reference r kyle was not used to int erpret this result as normal/abnormal . [facility] HospitalWyjaqhfEDZNYFJKEA2792-16-58 10:15:00 Test Item Value Reference Range Interpretation Comments Neutrophils # (test code = Neutrophils 6.5 1.5-8.1 #) [facility] HospitalAbtxxieONBGZDTNBX5043-51-80 10:15:00 Test Item Value Reference Range Interpretation Comments Lymphocytes # (test code = Lymphocytes 3.4 1.0-5.5 #) [facility] HospitalWgdbmioTWNZVVPEMF0742-15-08 10:15:00 Test Item Value Reference Range Interpretation Comments Monocytes # (test code 0.5 See_Comment [Aut omated message] The = Monocytes #) system which generated this result tra nsmitted reference range : <=0.8. The reference r kyle was not used to int erpret this result as normal/abnormal . [facility] HospitalVibvwyiQVRYQJYOPZ2125-37-54 10:15:00 Test Item Value Reference Range Interpretation Comments Eosinophils # (test code 0.4 See_Comment [A utomated message] The = Eosinophils #) system whic h generated this result tra nsmitted reference range : <=0.5. The reference r kyle was not used to int erpret this result as normal/abnormal . [facility] HospitalEknwrxoVGPLMCACMK7291-59-06 10:15:00 Test Item Value Reference Range Interpretation Comments Basophils # (test code 0.1 See_Comment [Aut omated message] The = Basophils #) system which generated this result tra nsmitted reference range : <=0.2. The reference r kyle was not used to int erpret this result as normal/abnormal . [facility] CenterWmgydqkNLNEHJWKH7694-69-83 10:15:00 Test Item Value Reference Range Interpretation Comments Glucose Lvl (test code = Glucose Lvl) 141 70-99 [facility] CenterLzekwxsPLXLRFJBF6425-94-55 10:15:00 Test Item Value Reference Range Interpretation Comments BUN (test code = BUN) 12 7-22 [facility] CenterOkmvhznNJVUABKYE3895-63-52 10:15:00 Test Item Value Reference Range Interpretation Comments Creatinine Lvl (test code = Creatinine 0.42 0.50-1.40 Lvl) [facility] CenterLalvuslXZILYKQML0067-50-29 10:15:00 Test Item Value Reference Range Interpretation Comments Sodium Lvl (test code = Sodium Lvl) 135 135-145 [facility] CenterZpevmjxRGIQAMUQL2661-69-14 10:15:00 Test Item Value Reference Range Interpretation Comments Potassium Lvl (test code = Potassium 4.2 3.5-5.1 Lvl) [facility] CenterBtpjslqCWAHJAIZT7731-90-54 10:15:00 Test Item Value Reference Range Interpretation Comments Chloride Lvl (test code = Chloride Lvl) 101 95-109 [facility] CenterYuhdhbqKTFRJJXZB5047-71-43 10:15:00 Test Item Value Reference Range Interpretation Comments CO2 (test code = CO2) 30 24-32 [facility] CenterWblydflWDPRDKLDI1997-40-79 10:15:00 Test Item Value Reference Range Interpretation Comments AGAP (test code = AGAP) 8.2 10.0-20.0 [facility] CenterMhefhgtGPGBYHVDV5056-91-37 10:15:00 Test Item Value Reference Range Interpretation Comments Calcium Lvl (test code = Calcium Lvl) 8.9 8.5-10.5 [facility] CenterTzbooatQAWCUASNT8968-71-63 10:15:00 Test Item Value Reference Range Interpretation Comments eGFR (test code = eGFR) 116 [facility] CenterFbanrzqRNBQGFCGK3502-31-76 10:15:00 Test Item Value Reference Range Interpretation Comments Magnesium Lvl (test code = Magnesium 1.9 1.8-2.4 Lvl) [facility] CenterTpvogabAWTZGNJDS5594-35-11 10:15:00 Test Item Value Reference Range Interpretation Comments Phosphorus (test code = Phosphorus) 4.2 2.5-4.5 [facility] CenterLbcvuuiPPACFKCFQ4762-58-99 10:15:00 Test Item Value Reference Range Interpretation Comments Ca Ion WB (test code = Ca Ion WB) 1.23 1.05-1.25 [facility] CenterNcvbsnwWREMYKJZT6703-27-88 10:15:00 Test Item Value Reference Range Interpretation Comments Ca Ion at pH 7.4 WB (test code = Ca Ion 1.19 1.05-1.25 at pH 7.4 WB) [facility] HospitalAafcixjKZAFBUNDSL3653-07-21 10:15:00 Test Item Value Reference Range Interpretation Comments WBC (test code = WBC) 10.9 3.7-10.4 [facility] HospitalRwfnfmjXGBBHELHBK6647-48-31 10:15:00 Test Item Value Reference Range Interpretation Comments RBC (test code = RBC) 2.89 4.20-5.40 [facility] HospitalUxglzulLRNGHYBFYD3399-02-77 10:15:00 Test Item Value Reference Range Interpretation Comments Hgb (test code = Hgb) 8.2 12.0-16.0 [place] 406462-10-30 10:15:00 Test Item Value Reference Range Interpretation Comments Hct (test code = Hct) 24.5 36.0-48.0 [facility] HospitalOvcnmkdLBKCLQJECK7148-30-08 10:15:00 Test Item Value Reference Range Interpretation Comments MCV (test code = MCV) 84.7 80.0-98.0 [facility] HospitalPyswgltLCDDSBPXGG4003-01-98 10:15:00 Test Item Value Reference Range Interpretation Comments MCH (test code = MCH) 28.4 pg 27.0-31.0 [facility] HospitalEaampntLELXIOQTUG8180-51-48 10:15:00 Test Item Value Reference Range Interpretation Comments MCHC (test code = MCHC) 33.5 32.0-36.0 [facility] HospitalBeqpixmTOCJVTOVWC3874-29-92 10:15:00 Test Item Value Reference Range Interpretation Comments RDW (test code = RDW) 13.5 11.5-14.5 [facility] HospitalIaybefcWNAZWGCGVH5046-88-90 10:15:00 Test Item Value Reference Range Interpretation Comments Platelet (test code = Platelet) 459 133-450 [facility] HospitalRionyhfCODVQVDUGK6100-04-96 10:15:00 Test Item Value Reference Range Interpretation Comments MPV (test code = MPV) 8.1 7.4-10.4 [facility] HospitalCkhxknkEGZRLYVRIT7705-71-88 10:15:00 Test Item Value Reference Range Interpretation Comments Segs (test code = Segs) 59.9 45.0-75.0 [facility] HospitalDkyreyzYBJKUGFFZZ2000-63-82 10:15:00 Test Item Value Reference Range Interpretation Comments Lymphocytes (test code = Lymphocytes) 31.3 20.0-40.0 [facility] HospitalExgwwvtPLPPOEHRIH6060-25-51 10:15:00 Test Item Value Reference Range Interpretation Comments Monocytes (test code = Monocytes) 4.9 2.0-12.0 [facility] HospitalYoqherrSAJRJVUXBR4174-99-07 10:15:00 Test Item Value Reference Range Interpretation Comments Eosinophils (test code = 3.3 See_Comment [A utomated message] The Eosinophils) system which ge nerated this result tra nsmitted reference range : <=4.0. The reference r kyle was not used to int erpret this result as normal/abnormal . [facility] HospitalMfkkoxqYRPZCYJGKN5779-10-38 10:15:00 Test Item Value Reference Range Interpretation Comments Basophils (test code = 0.6 See_Comment [Aut omated message] The Basophils) system which ge nerated this result tra nsmitted reference range : <=1.0. The reference r kyle was not used to int erpret this result as normal/abnormal . [facility] HospitalGcpsbquBGUNOHSMFF4977-61-91 10:15:00 Test Item Value Reference Range Interpretation Comments Neutrophils # (test code = Neutrophils 6.5 1.5-8.1 #) [facility] HospitalFyxqjunESKLQUASLN2976-45-32 10:15:00 Test Item Value Reference Range Interpretation Comments Lymphocytes # (test code = Lymphocytes 3.4 1.0-5.5 #) [facility] HospitalOmxmvafSXUXANXTIS0326-61-38 10:15:00 Test Item Value Reference Range Interpretation Comments Monocytes # (test code 0.5 See_Comment [Aut omated message] The = Monocytes #) system which generated this result tra nsmitted reference range : <=0.8. The reference r kyle was not used to int erpret this result as normal/abnormal . [facility] HospitalQspfqntSTAVBPJIKU6340-33-09 10:15:00 Test Item Value Reference Range Interpretation Comments Eosinophils # (test code 0.4 See_Comment [A utomated message] The = Eosinophils #) system ic h generated this result tra nsmitted reference range : <=0.5. The reference r kyle was not used to int erpret this result as normal/abnormal . [facility] HospitalPmjlstcSATNASMTBJ7439-14-57 10:15:00 Test Item Value Reference Range Interpretation Comments Basophils # (test code 0.1 See_Comment [Aut omated message] The = Basophils #) system which generated this result tra nsmitted reference range : <=0.2. The reference r kyle was not used to int erpret this result as normal/abnormal . [facility] CenterCrwjkhkIHDQUNGBR2768-55-68 10:15:00 Test Item Value Reference Range Interpretation Comments Glucose Lvl (test code = Glucose Lvl) 141 70-99 [facility] CenterTdhhqegFYQYDIIAS0957-10-54 10:15:00 Test Item Value Reference Range Interpretation Comments BUN (test code = BUN) 12 7-22 [facility] CenterEenhsglKAMQWWFBD4348-21-47 10:15:00 Test Item Value Reference Range Interpretation Comments Creatinine Lvl (test code = Creatinine 0.42 0.50-1.40 Lvl) [facility] CenterOrlewjzDPZRKSZMN0291-52-69 10:15:00 Test Item Value Reference Range Interpretation Comments Sodium Lvl (test code = Sodium Lvl) 135 135-145 [facility] CenterUtuncqbDUMXWKIZT7072-51-91 10:15:00 Test Item Value Reference Range Interpretation Comments Potassium Lvl (test code = Potassium 4.2 3.5-5.1 Lvl) [facility] CenterUsfemhpJZLVSJSHY3715-97-71 10:15:00 Test Item Value Reference Range Interpretation Comments Chloride Lvl (test code = Chloride Lvl) 101 95-109 [facility] CenterHjddhhhSTXINGSNP0950-99-59 10:15:00 Test Item Value Reference Range Interpretation Comments CO2 (test code = CO2) 30 24-32 [facility] CenterVchkjfbASDBQRRES5203-51-30 10:15:00 Test Item Value Reference Range Interpretation Comments AGAP (test code = AGAP) 8.2 10.0-20.0 [facility] CenterGhybeybGRNUCCUUO8282-68-45 10:15:00 Test Item Value Reference Range Interpretation Comments Calcium Lvl (test code = Calcium Lvl) 8.9 8.5-10.5 [facility] CenterZjkthjzJNKUGCCJP8363-43-42 10:15:00 Test Item Value Reference Range Interpretation Comments eGFR (test code = eGFR) 116 [facility] CenterMpwdrpqYUHZUMJMM6702-65-92 10:15:00 Test Item Value Reference Range Interpretation Comments Magnesium Lvl (test code = Magnesium 1.9 1.8-2.4 Lvl) [facility] CenterQnhllqnDILSQUCIX1363-85-09 10:15:00 Test Item Value Reference Range Interpretation Comments Phosphorus (test code = Phosphorus) 4.2 2.5-4.5 [facility] CenterEmqhmsiDHDQQZAHR3579-53-53 10:15:00 Test Item Value Reference Range Interpretation Comments Ca Ion WB (test code = Ca Ion WB) 1.23 1.05-1.25 [facility] CenterVkfnrggDWAWTGHEJ2619-30-22 10:15:00 Test Item Value Reference Range Interpretation Comments Ca Ion at pH 7.4 WB (test code = Ca Ion 1.19 1.05-1.25 at pH 7.4 WB) [facility] HospitalYfwyexcWZIEEAMLOO6621-74-09 10:15:00 Test Item Value Reference Range Interpretation Comments WBC (test code = WBC) 10.9 3.7-10.4 [facility] HospitalHzfjwjlGUVWGSILKQ9484-06-45 10:15:00 Test Item Value Reference Range Interpretation Comments RBC (test code = RBC) 2.89 4.20-5.40 [facility] HospitalGxlscwxGQRSGUQBTE7365-56-23 10:15:00 Test Item Value Reference Range Interpretation Comments Hgb (test code = Hgb) 8.2 12.0-16.0 [facility] HospitalWieypbgCUUIGCCMHD5108-52-47 10:15:00 Test Item Value Reference Range Interpretation Comments Hct (test code = Hct) 24.5 36.0-48.0 [place] 406462-10-30 10:15:00 Test Item Value Reference Range Interpretation Comments MCV (test code = MCV) 84.7 80.0-98.0 [facility] HospitalIvtwbmxDKCXLXXSMH1722-51-28 10:15:00 Test Item Value Reference Range Interpretation Comments MCH (test code = MCH) 28.4 pg 27.0-31.0 [facility] HospitalZfkuxqiSXCGVOXOBI6396-13-15 10:15:00 Test Item Value Reference Range Interpretation Comments MCHC (test code = MCHC) 33.5 32.0-36.0 [facility] HospitalZsoazzoTRPUTMFDZS0565-55-56 10:15:00 Test Item Value Reference Range Interpretation Comments RDW (test code = RDW) 13.5 11.5-14.5 [facility] HospitalIwmlluzTUSLFMYPAR9938-34-28 10:15:00 Test Item Value Reference Range Interpretation Comments Platelet (test code = Platelet) 459 402-755 [facility] HospitalZsunmxoNJAEGVDBFJ9263-14-51 10:15:00 Test Item Value Reference Range Interpretation Comments MPV (test code = MPV) 8.1 7.4-10.4 [facility] HospitalBreprioUDHEPYRVBU8341-18-28 10:15:00 Test Item Value Reference Range Interpretation Comments Segs (test code = Segs) 59.9 45.0-75.0 [facility] HospitalSszmseyUUBHTWFNJR5726-97-26 10:15:00 Test Item Value Reference Range Interpretation Comments Lymphocytes (test code = Lymphocytes) 31.3 20.0-40.0 [place] 406462-10-30 10:15:00 Test Item Value Reference Range Interpretation Comments Monocytes (test code = Monocytes) 4.9 2.0-12.0 [facility] HospitalJuwlaeiMGYESLZDDW1832-25-38 10:15:00 Test Item Value Reference Range Interpretation Comments Eosinophils (test code = 3.3 See_Comment [A utomated message] The Eosinophils) system which ge nerated this result tra nsmitted reference range : <=4.0. The reference r kyle was not used to int erpret this result as normal/abnormal . [facility] HospitalGfnegfzSFWDUGWTQL2183-19-57 10:15:00 Test Item Value Reference Range Interpretation Comments Basophils (test code = 0.6 See_Comment [Aut omated message] The Basophils) system which ge nerated this result tra nsmitted reference range : <=1.0. The reference r kyle was not used to int erpret this result as normal/abnormal . [facility] HospitalKjpiyytEAMQNDPRHA3715-27-72 10:15:00 Test Item Value Reference Range Interpretation Comments Neutrophils # (test code = Neutrophils 6.5 1.5-8.1 #) [facility] HospitalDyycqcrPXXXZRLHOM6831-68-04 10:15:00 Test Item Value Reference Range Interpretation Comments Lymphocytes # (test code = Lymphocytes 3.4 1.0-5.5 #) [facility] HospitalSynmeqoFCPBVLKVMB6292-81-43 10:15:00 Test Item Value Reference Range Interpretation Comments Monocytes # (test code 0.5 See_Comment [Aut omated message] The = Monocytes #) system which generated this result tra nsmitted reference range : <=0.8. The reference r kyle was not used to int erpret this result as normal/abnormal . [facility] HospitalKparenbLPXTDEKDHD7357-57-76 10:15:00 Test Item Value Reference Range Interpretation Comments Eosinophils # (test code 0.4 See_Comment [A utomated message] The = Eosinophils #) system whic h generated this result tra nsmitted reference range : <=0.5. The reference r kyle was not used to int erpret this result as normal/abnormal . [facility] HospitalOoywzktDYRLQQFKPT4976-99-17 10:15:00 Test Item Value Reference Range Interpretation Comments Basophils # (test code 0.1 See_Comment [Aut omated message] The = Basophils #) system which generated this result tra nsmitted reference range : <=0.2. The reference r kyle was not used to int erpret this result as normal/abnormal . [facility] CenterDjvbolkYVSBATOOA3460-55-28 10:15:00 Test Item Value Reference Range Interpretation Comments Glucose Lvl (test code = Glucose Lvl) 141 70-99 [facility] CenterMbrcmbvZNFLSUVBR2013-97-78 10:15:00 Test Item Value Reference Range Interpretation Comments BUN (test code = BUN) 12 7-22 [facility] CenterFkfuoznLTGVRAMAG5022-43-71 10:15:00 Test Item Value Reference Range Interpretation Comments Creatinine Lvl (test code = Creatinine 0.42 0.50-1.40 Lvl) [facility] CenterFlklpvoQKTSMRBSH9399-34-69 10:15:00 Test Item Value Reference Range Interpretation Comments Sodium Lvl (test code = Sodium Lvl) 135 135-145 [facility] CenterHtxxtgcWIPFUWHMA1912-67-88 10:15:00 Test Item Value Reference Range Interpretation Comments Potassium Lvl (test code = Potassium 4.2 3.5-5.1 Lvl) [facility] CenterKomquvyDDNWXPRAJ7897-05-49 10:15:00 Test Item Value Reference Range Interpretation Comments Chloride Lvl (test code = Chloride Lvl) 101 95-109 [facility] CenterQyzdvzuBXWFBSSBJ4957-77-53 10:15:00 Test Item Value Reference Range Interpretation Comments CO2 (test code = CO2) 30 24-32 [facility] CenterSmasiebJZPHMBHXF0810-02-40 10:15:00 Test Item Value Reference Range Interpretation Comments AGAP (test code = AGAP) 8.2 10.0-20.0 [facility] CenterStufhguVRAVAYYEN8881-14-22 10:15:00 Test Item Value Reference Range Interpretation Comments Calcium Lvl (test code = Calcium Lvl) 8.9 8.5-10.5 [facility] CenterRfftdrxGJELBKRRS1188-04-94 10:15:00 Test Item Value Reference Range Interpretation Comments eGFR (test code = eGFR) 116 [facility] CenterLbtcirbANNZGMSEK8628-38-27 10:15:00 Test Item Value Reference Range Interpretation Comments Magnesium Lvl (test code = Magnesium 1.9 1.8-2.4 Lvl) [facility] CenterDamziwaWXDVMZNOJ5872-54-09 10:15:00 Test Item Value Reference Range Interpretation Comments Phosphorus (test code = Phosphorus) 4.2 2.5-4.5 [facility] CenterKcagrlbTZRAQFQTY9191-41-26 10:15:00 Test Item Value Reference Range Interpretation Comments Ca Ion WB (test code = Ca Ion WB) 1.23 1.05-1.25 [place] 223672-10-30 10:15:00 Test Item Value Reference Range Interpretation Comments Ca Ion at pH 7.4 WB (test code = Ca Ion 1.19 1.05-1.25 at pH 7.4 WB) [facility] HospitalBjlpgnyHKWQLYCLQA4254-31-56 10:15:00 Test Item Value Reference Range Interpretation Comments WBC (test code = WBC) 10.9 3.7-10.4 [facility] HospitalKwrjlnfTGQPQWZIZX5882-41-50 10:15:00 Test Item Value Reference Range Interpretation Comments RBC (test code = RBC) 2.89 4.20-5.40 [facility] HospitalIqmjxweBUDSWFEVBI8824-02-18 10:15:00 Test Item Value Reference Range Interpretation Comments Hgb (test code = Hgb) 8.2 12.0-16.0 [place] 406462-10-30 10:15:00 Test Item Value Reference Range Interpretation Comments Hct (test code = Hct) 24.5 36.0-48.0 [place] 406462-10-30 10:15:00 Test Item Value Reference Range Interpretation Comments MCV (test code = MCV) 84.7 80.0-98.0 [place] [address]-10-30 10:15:00 Test Item Value Reference Range Interpretation Comments MCH (test code = MCH) 28.4 pg 27.0-31.0 [place] 406462-10-30 10:15:00 Test Item Value Reference Range Interpretation Comments MCHC (test code = MCHC) 33.5 32.0-36.0 [facility] HospitalLdhqyopWBEXXZBYAP3752-26-39 10:15:00 Test Item Value Reference Range Interpretation Comments RDW (test code = RDW) 13.5 11.5-14.5 [place] 406462-10-30 10:15:00 Test Item Value Reference Range Interpretation Comments Platelet (test code = Platelet) 459 133-450 [facility] HospitalQkiwvnpOHNUINYYWB8380-34-24 10:15:00 Test Item Value Reference Range Interpretation Comments MPV (test code = MPV) 8.1 7.4-10.4 [facility] HospitalVrsephpAKDILCKMWG6243-09-93 10:15:00 Test Item Value Reference Range Interpretation Comments Segs (test code = Segs) 59.9 45.0-75.0 [place] 406462-10-30 10:15:00 Test Item Value Reference Range Interpretation Comments Lymphocytes (test code = Lymphocytes) 31.3 20.0-40.0 [facility] HospitalKtendyiIHYEWKMYBS7923-35-10 10:15:00 Test Item Value Reference Range Interpretation Comments Monocytes (test code = Monocytes) 4.9 2.0-12.0 [facility] HospitalVncemvtCNBUNGXZHN5508-31-97 10:15:00 Test Item Value Reference Range Interpretation Comments Eosinophils (test code = 3.3 See_Comment [A utomated message] The Eosinophils) system which ge nerated this result tra nsmitted reference range : <=4.0. The reference r kyle was not used to int erpret this result as normal/abnormal . [facility] HospitalOsdchqvPWDZUIOQWP0194-40-30 10:15:00 Test Item Value Reference Range Interpretation Comments Basophils (test code = 0.6 See_Comment [Aut omated message] The Basophils) system which ge nerated this result tra nsmitted reference range : <=1.0. The reference r kyle was not used to int erpret this result as normal/abnormal . [facility] HospitalWvnlrjlLZLEHZQMRZ0122-37-68 10:15:00 Test Item Value Reference Range Interpretation Comments Neutrophils # (test code = Neutrophils 6.5 1.5-8.1 #) [facility] HospitalGbbyzgrHQUCNVMJBH8216-90-58 10:15:00 Test Item Value Reference Range Interpretation Comments Lymphocytes # (test code = Lymphocytes 3.4 1.0-5.5 #) [facility] HospitalGjqddcvHMNMPTGXSC7594-26-62 10:15:00 Test Item Value Reference Range Interpretation Comments Monocytes # (test code 0.5 See_Comment [Aut omated message] The = Monocytes #) system which generated this result tra nsmitted reference range : <=0.8. The reference r kyle was not used to int erpret this result as normal/abnormal . [facility] HospitalNkwcutlYMFBNLJGLN0401-64-29 10:15:00 Test Item Value Reference Range Interpretation Comments Eosinophils # (test code 0.4 See_Comment [A utomated message] The = Eosinophils #) system whic h generated this result tra nsmitted reference range : <=0.5. The reference r kyle was not used to int erpret this result as normal/abnormal . [facility] HospitalQfbrtjvNWJSNQWAJX5725-42-34 10:15:00 Test Item Value Reference Range Interpretation Comments Basophils # (test code 0.1 See_Comment [Aut omated message] The = Basophils #) system which generated this result tra nsmitted reference range : <=0.2. The reference r kyle was not used to int erpret this result as normal/abnormal . [facility] CenterArkmsxpULFEZGMME3576-45-51 10:15:00 Test Item Value Reference Range Interpretation Comments Glucose Lvl (test code = Glucose Lvl) 141 70-99 [facility] CenterJwuzdliINOPLRYCQ8903-08-68 10:15:00 Test Item Value Reference Range Interpretation Comments BUN (test code = BUN) 12 7-22 [facility] CenterSxauhqsYIYTBFKNF8064-19-64 10:15:00 Test Item Value Reference Range Interpretation Comments Creatinine Lvl (test code = Creatinine 0.42 0.50-1.40 Lvl) [facility] CenterXmujyagHJCJTFHLV7809-76-86 10:15:00 Test Item Value Reference Range Interpretation Comments Sodium Lvl (test code = Sodium Lvl) 135 135-145 [facility] CenterQgohitiLENZPGSSY8494-95-65 10:15:00 Test Item Value Reference Range Interpretation Comments Potassium Lvl (test code = Potassium 4.2 3.5-5.1 Lvl) [facility] CenterKrfmqzvDQVZWUYLN8640-07-16 10:15:00 Test Item Value Reference Range Interpretation Comments Chloride Lvl (test code = Chloride Lvl) 101 95-109 [place] 223672-10-30 10:15:00 Test Item Value Reference Range Interpretation Comments CO2 (test code = CO2) 30 24-32 [facility] CenterOvukoegWLTVPLWAD8632-40-09 10:15:00 Test Item Value Reference Range Interpretation Comments AGAP (test code = AGAP) 8.2 10.0-20.0 [facility] CenterKhfdszsZOJONNPTR2740-61-18 10:15:00 Test Item Value Reference Range Interpretation Comments Calcium Lvl (test code = Calcium Lvl) 8.9 8.5-10.5 [facility] CenterKhktelxKYQMCFPOG7726-96-34 10:15:00 Test Item Value Reference Range Interpretation Comments eGFR (test code = eGFR) 116 [facility] CenterXtwvxfjRIVIOXBUO7326-58-51 10:15:00 Test Item Value Reference Range Interpretation Comments Magnesium Lvl (test code = Magnesium 1.9 1.8-2.4 Lvl) [facility] CenterQtzelsqMCDXJTGWQ5965-53-76 10:15:00 Test Item Value Reference Range Interpretation Comments Phosphorus (test code = Phosphorus) 4.2 2.5-4.5 [facility] CenterMphuivnOMLMDFJJI4187-28-85 10:15:00 Test Item Value Reference Range Interpretation Comments Ca Ion WB (test code = Ca Ion WB) 1.23 1.05-1.25 [facility] CenterNsnsbwqXURBSWEEE8445-76-01 10:15:00 Test Item Value Reference Range Interpretation Comments Ca Ion at pH 7.4 WB (test code = Ca Ion 1.19 1.05-1.25 at pH 7.4 WB) [facility] HospitalDurexxnBYOHRUJERE8082-14-50 10:15:00 Test Item Value Reference Range Interpretation Comments WBC (test code = WBC) 10.9 3.7-10.4 [facility] HospitalDhbgvioVLFHATNSQH5085-56-30 10:15:00 Test Item Value Reference Range Interpretation Comments RBC (test code = RBC) 2.89 4.20-5.40 [facility] HospitalDjtvkjjRWDTYSNEJY1116-58-58 10:15:00 Test Item Value Reference Range Interpretation Comments Hgb (test code = Hgb) 8.2 12.0-16.0 [place] 406462-10-30 10:15:00 Test Item Value Reference Range Interpretation Comments Hct (test code = Hct) 24.5 36.0-48.0 [facility] HospitalRybcslqAFDNDDYPOQ2278-42-47 10:15:00 Test Item Value Reference Range Interpretation Comments MCV (test code = MCV) 84.7 80.0-98.0 [facility] HospitalZscoonmVUNXFOIBPU0155-50-52 10:15:00 Test Item Value Reference Range Interpretation Comments MCH (test code = MCH) 28.4 pg 27.0-31.0 [facility] HospitalRamgqnrPLHRXFRKAA1039-32-81 10:15:00 Test Item Value Reference Range Interpretation Comments MCHC (test code = MCHC) 33.5 32.0-36.0 [facility] HospitalMpipmdoJQGIMNYFHJ9770-32-94 10:15:00 Test Item Value Reference Range Interpretation Comments RDW (test code = RDW) 13.5 11.5-14.5 [facility] HospitalJbezaodUNCHOTHPZX2740-14-20 10:15:00 Test Item Value Reference Range Interpretation Comments Platelet (test code = Platelet) 459 133-450 [facility] HospitalOcppyhcKUFCJWUYLB2303-41-82 10:15:00 Test Item Value Reference Range Interpretation Comments MPV (test code = MPV) 8.1 7.4-10.4 [facility] HospitalTkicklqGZATRMQDKL9269-74-13 10:15:00 Test Item Value Reference Range Interpretation Comments Segs (test code = Segs) 59.9 45.0-75.0 [facility] HospitalKdvqqfoUSCUKMJQHU7910-61-46 10:15:00 Test Item Value Reference Range Interpretation Comments Lymphocytes (test code = Lymphocytes) 31.3 20.0-40.0 [facility] HospitalMqrkecnPDDJQISVGP6208-55-08 10:15:00 Test Item Value Reference Range Interpretation Comments Monocytes (test code = Monocytes) 4.9 2.0-12.0 [place] [address]-10-30 10:15:00 Test Item Value Reference Range Interpretation Comments Eosinophils (test code = 3.3 See_Comment [A utomated message] The Eosinophils) system which ge nerated this result tra nsmitted reference range : <=4.0. The reference r kyle was not used to int erpret this result as normal/abnormal . [facility] HospitalQbemvqyNSYLFUTSDY6041-79-44 10:15:00 Test Item Value Reference Range Interpretation Comments Basophils (test code = 0.6 See_Comment [Aut omated message] The Basophils) system which ge nerated this result tra nsmitted reference range : <=1.0. The reference r kyle was not used to int erpret this result as normal/abnormal . [facility] HospitalYntefmyQNKFYVRKUG5652-03-23 10:15:00 Test Item Value Reference Range Interpretation Comments Neutrophils # (test code = Neutrophils 6.5 1.5-8.1 #) [facility] HospitalIzlezkrBNIBEFCAVD3295-93-00 10:15:00 Test Item Value Reference Range Interpretation Comments Lymphocytes # (test code = Lymphocytes 3.4 1.0-5.5 #) [facility] HospitalYfdzdqaMIYZMHRYEM5190-71-92 10:15:00 Test Item Value Reference Range Interpretation Comments Monocytes # (test code 0.5 See_Comment [Aut omated message] The = Monocytes #) system which generated this result tra nsmitted reference range : <=0.8. The reference r kyle was not used to int erpret this result as normal/abnormal . [facility] HospitalEcstudfQQMTURNIAW0259-70-41 10:15:00 Test Item Value Reference Range Interpretation Comments Eosinophils # (test code 0.4 See_Comment [A utomated message] The = Eosinophils #) system whic h generated this result tra nsmitted reference range : <=0.5. The reference r kyle was not used to int erpret this result as normal/abnormal . [facility] HospitalHqlmwlhVGZHGUTWHQ9497-25-78 10:15:00 Test Item Value Reference Range Interpretation Comments Basophils # (test code 0.1 See_Comment [Aut omated message] The = Basophils #) system which generated this result tra nsmitted reference range : <=0.2. The reference r kyle was not used to int erpret this result as normal/abnormal . [facility] CenterYcylvvzNDNHNXJZJ2277-41-73 10:15:00 Test Item Value Reference Range Interpretation Comments Glucose Lvl (test code = Glucose Lvl) 141 70-99 [facility] CenterLyzionqHORYFMHBX6062-67-33 10:15:00 Test Item Value Reference Range Interpretation Comments BUN (test code = BUN) 12 7-22 [place] 223672-10-30 10:15:00 Test Item Value Reference Range Interpretation Comments Creatinine Lvl (test code = Creatinine 0.42 0.50-1.40 Lvl) [facility] CenterUrdpactBCUGILUJO8409-53-52 10:15:00 Test Item Value Reference Range Interpretation Comments Sodium Lvl (test code = Sodium Lvl) 135 135-145 [facility] CenterCnpnfyeAKDFYJTKN4396-88-63 10:15:00 Test Item Value Reference Range Interpretation Comments Potassium Lvl (test code = Potassium 4.2 3.5-5.1 Lvl) [facility] CenterOwnccsaJZSAKXXPB2825-21-45 10:15:00 Test Item Value Reference Range Interpretation Comments Chloride Lvl (test code = Chloride Lvl) 101 95-109 [facility] CenterUwqrewdPYNPLFQOT7047-17-37 10:15:00 Test Item Value Reference Range Interpretation Comments CO2 (test code = CO2) 30 24-32 [facility] CenterQlqwctwRXNKBTVNG2792-66-33 10:15:00 Test Item Value Reference Range Interpretation Comments AGAP (test code = AGAP) 8.2 10.0-20.0 [facility] CenterBhfjtidSUGGPBOTP9326-18-75 10:15:00 Test Item Value Reference Range Interpretation Comments Calcium Lvl (test code = Calcium Lvl) 8.9 8.5-10.5 [facility] CenterKqtnrnhYNMFOBXJY3817-17-59 10:15:00 Test Item Value Reference Range Interpretation Comments eGFR (test code = eGFR) 116 [facility] CenterXjbjbkmOKWWSDUIN5011-91-57 10:15:00 Test Item Value Reference Range Interpretation Comments Magnesium Lvl (test code = Magnesium 1.9 1.8-2.4 Lvl) [facility] CenterAeumkbbLEYQESZRG4677-43-94 10:15:00 Test Item Value Reference Range Interpretation Comments Phosphorus (test code = Phosphorus) 4.2 2.5-4.5 [facility] CenterRxduzlgKKTOVLMWE8692-01-73 10:15:00 Test Item Value Reference Range Interpretation Comments Ca Ion WB (test code = Ca Ion WB) 1.23 1.05-1.25 [facility] CenterEsnchvoGVVSKMBLZ7542-76-88 10:15:00 Test Item Value Reference Range Interpretation Comments Ca Ion at pH 7.4 WB (test code = Ca Ion 1.19 1.05-1.25 at pH 7.4 WB) [facility] HospitalUhhvzlwUCQSJTODFP7183-00-47 10:15:00 Test Item Value Reference Range Interpretation Comments WBC (test code = WBC) 10.9 3.7-10.4 [facility] HospitalSgdgcdeSSPLSFDKDX8872-40-51 10:15:00 Test Item Value Reference Range Interpretation Comments RBC (test code = RBC) 2.89 4.20-5.40 [place] 406462-10-30 10:15:00 Test Item Value Reference Range Interpretation Comments Hgb (test code = Hgb) 8.2 12.0-16.0 [place] 406462-10-30 10:15:00 Test Item Value Reference Range Interpretation Comments Hct (test code = Hct) 24.5 36.0-48.0 [place] 406462-10-30 10:15:00 Test Item Value Reference Range Interpretation Comments MCV (test code = MCV) 84.7 80.0-98.0 [facility] HospitalZqrtdmdXHUUHYVQDZ1716-62-89 10:15:00 Test Item Value Reference Range Interpretation Comments MCH (test code = MCH) 28.4 pg 27.0-31.0 [facility] HospitalKptipeyMREVCCLTQP9267-41-68 10:15:00 Test Item Value Reference Range Interpretation Comments MCHC (test code = MCHC) 33.5 32.0-36.0 [facility] HospitalXwrkpewIGIZFWEMGX5786-53-80 10:15:00 Test Item Value Reference Range Interpretation Comments RDW (test code = RDW) 13.5 11.5-14.5 [facility] HospitalBwcnnlvZGXCLRLING6238-57-32 10:15:00 Test Item Value Reference Range Interpretation Comments Platelet (test code = Platelet) 459 133-450 [facility] HospitalRacyxcbIHWDMNGTAP1715-81-06 10:15:00 Test Item Value Reference Range Interpretation Comments MPV (test code = MPV) 8.1 7.4-10.4 [place] 406462-10-30 10:15:00 Test Item Value Reference Range Interpretation Comments Segs (test code = Segs) 59.9 45.0-75.0 [facility] HospitalUswasfvVJLJTSEACO7342-09-56 10:15:00 Test Item Value Reference Range Interpretation Comments Lymphocytes (test code = Lymphocytes) 31.3 20.0-40.0 [place] 406462-10-30 10:15:00 Test Item Value Reference Range Interpretation Comments Monocytes (test code = Monocytes) 4.9 2.0-12.0 [place] [address]-10-30 10:15:00 Test Item Value Reference Range Interpretation Comments Eosinophils (test code = 3.3 See_Comment [A utomated message] The Eosinophils) system which ge nerated this result tra nsmitted reference range : <=4.0. The reference r kyle was not used to int erpret this result as normal/abnormal . [facility] HospitalVdsgmesDDXRGKLXOI0742-88-94 10:15:00 Test Item Value Reference Range Interpretation Comments Basophils (test code = 0.6 See_Comment [Aut omated message] The Basophils) system which ge nerated this result tra nsmitted reference range : <=1.0. The reference r kyle was not used to int erpret this result as normal/abnormal . [facility] HospitalTlqcwjaIQAUBVKCHU4664-32-84 10:15:00 Test Item Value Reference Range Interpretation Comments Neutrophils # (test code = Neutrophils 6.5 1.5-8.1 #) [facility] HospitalAgjzhxbIWQLDSYNEJ9686-83-46 10:15:00 Test Item Value Reference Range Interpretation Comments Lymphocytes # (test code = Lymphocytes 3.4 1.0-5.5 #) [facility] HospitalOzztdfbHEGXHYLMXZ7261-21-70 10:15:00 Test Item Value Reference Range Interpretation Comments Monocytes # (test code 0.5 See_Comment [Aut omated message] The = Monocytes #) system which generated this result tra nsmitted reference range : <=0.8. The reference r kyle was not used to int erpret this result as normal/abnormal . [facility] HospitalCvbwoarMLMCTVLSYV9150-76-67 10:15:00 Test Item Value Reference Range Interpretation Comments Eosinophils # (test code 0.4 See_Comment [A utomated message] The = Eosinophils #) system whic h generated this result tra nsmitted reference range : <=0.5. The reference r kyle was not used to int erpret this result as normal/abnormal . [facility] HospitalXkelridHHVDVTMRTH4061-18-23 10:15:00 Test Item Value Reference Range Interpretation Comments Basophils # (test code 0.1 See_Comment [Aut omated message] The = Basophils #) system which generated this result tra nsmitted reference range : <=0.2. The reference r kyle was not used to int erpret this result as normal/abnormal . [facility] CenterFyihmkrNDAGJNCSR7810-10-02 10:15:00 Test Item Value Reference Range Interpretation Comments Glucose Lvl (test code = Glucose Lvl) 141 70-99 [facility] CenterNmbptwoKSSJUBQMR6432-31-02 10:15:00 Test Item Value Reference Range Interpretation Comments BUN (test code = BUN) 12 7-22 [facility] CenterMylvdmnXKWLRUQTS5390-71-42 10:15:00 Test Item Value Reference Range Interpretation Comments Creatinine Lvl (test code = Creatinine 0.42 0.50-1.40 Lvl) [facility] CenterQagdpydNFZXQJSLJ4983-39-38 10:15:00 Test Item Value Reference Range Interpretation Comments Sodium Lvl (test code = Sodium Lvl) 135 135-145 [facility] CenterBtpovnyCAHGUGWXL5871-11-00 10:15:00 Test Item Value Reference Range Interpretation Comments Potassium Lvl (test code = Potassium 4.2 3.5-5.1 Lvl) [facility] CenterRrdqyyuEQEVDSCOB6186-41-38 10:15:00 Test Item Value Reference Range Interpretation Comments Chloride Lvl (test code = Chloride Lvl) 101 95-109 [facility] CenterPhgapztVMCYLBRJB0742-53-74 10:15:00 Test Item Value Reference Range Interpretation Comments CO2 (test code = CO2) 30 24-32 [facility] CenterUlkypcuSDLPDMLNQ2077-96-69 10:15:00 Test Item Value Reference Range Interpretation Comments AGAP (test code = AGAP) 8.2 10.0-20.0 [facility] CenterDrjbealSXNLVEVOJ7246-26-64 10:15:00 Test Item Value Reference Range Interpretation Comments Calcium Lvl (test code = Calcium Lvl) 8.9 8.5-10.5 [facility] CenterZksagfpPZANWVTMR1084-77-87 10:15:00 Test Item Value Reference Range Interpretation Comments eGFR (test code = eGFR) 116 [facility] CenterZasxhrhNKJZRZIFP8266-69-06 10:15:00 Test Item Value Reference Range Interpretation Comments Magnesium Lvl (test code = Magnesium 1.9 1.8-2.4 Lvl) [facility] CenterIvizjsbSYJHLWJZZ7685-76-03 10:15:00 Test Item Value Reference Range Interpretation Comments Phosphorus (test code = Phosphorus) 4.2 2.5-4.5 [facility] CenterGanfjapGBZAXSBWX0581-40-85 10:15:00 Test Item Value Reference Range Interpretation Comments Ca Ion WB (test code = Ca Ion WB) 1.23 1.05-1.25 [facility] CenterCudbulkAYOAMYOFV5760-12-87 10:15:00 Test Item Value Reference Range Interpretation Comments Ca Ion at pH 7.4 WB (test code = Ca Ion 1.19 1.05-1.25 at pH 7.4 WB) [facility] HospitalXtwxqsbSJDTARXMTI1115-20-39 10:15:00 Test Item Value Reference Range Interpretation Comments WBC (test code = WBC) 10.9 3.7-10.4 [facility] HospitalAwlavbmCPKKKPKYYW0870-75-18 10:15:00 Test Item Value Reference Range Interpretation Comments RBC (test code = RBC) 2.89 4.20-5.40 [facility] HospitalJnmjnkmWHTSQKZLRW5018-80-24 10:15:00 Test Item Value Reference Range Interpretation Comments Hgb (test code = Hgb) 8.2 12.0-16.0 [facility] HospitalJjvcuedQEIXSBPFJK6622-96-80 10:15:00 Test Item Value Reference Range Interpretation Comments Hct (test code = Hct) 24.5 36.0-48.0 [facility] HospitalPafugvvVZHLHSJRWT9484-80-29 10:15:00 Test Item Value Reference Range Interpretation Comments MCV (test code = MCV) 84.7 80.0-98.0 [facility] HospitalPshbftnGQHFRDBQFZ7618-23-49 10:15:00 Test Item Value Reference Range Interpretation Comments MCH (test code = MCH) 28.4 pg 27.0-31.0 [facility] HospitalKdcbgnvUMDOKSKFPI0316-97-12 10:15:00 Test Item Value Reference Range Interpretation Comments MCHC (test code = MCHC) 33.5 32.0-36.0 [facility] HospitalElbthztYXNCNRQANB4457-82-25 10:15:00 Test Item Value Reference Range Interpretation Comments RDW (test code = RDW) 13.5 11.5-14.5 [facility] HospitalHrmzhfjABWSTKRTEB4704-71-00 10:15:00 Test Item Value Reference Range Interpretation Comments Platelet (test code = Platelet) 459 133-450 [facility] HospitalKlvxiozVTZOXANKAK2832-21-36 10:15:00 Test Item Value Reference Range Interpretation Comments MPV (test code = MPV) 8.1 7.4-10.4 [facility] HospitalQktsgfcKSDPIJQNAE1893-83-98 10:15:00 Test Item Value Reference Range Interpretation Comments Segs (test code = Segs) 59.9 45.0-75.0 [facility] HospitalQeneeloROHAQQPALW6330-07-26 10:15:00 Test Item Value Reference Range Interpretation Comments Lymphocytes (test code = Lymphocytes) 31.3 20.0-40.0 [facility] HospitalPmlkkutRDMOOEJODG5799-47-66 10:15:00 Test Item Value Reference Range Interpretation Comments Monocytes (test code = Monocytes) 4.9 2.0-12.0 [place] 406462-10-30 10:15:00 Test Item Value Reference Range Interpretation Comments Eosinophils (test code = 3.3 See_Comment [A utomated message] The Eosinophils) system which ge nerated this result tra nsmitted reference range : <=4.0. The reference r kyle was not used to int erpret this result as normal/abnormal . [place] 406462-10-30 10:15:00 Test Item Value Reference Range Interpretation Comments Basophils (test code = 0.6 See_Comment [Aut omated message] The Basophils) system which ge nerated this result tra nsmitted reference range : <=1.0. The reference r kyle was not used to int erpret this result as normal/abnormal . [place] 406462-10-30 10:15:00 Test Item Value Reference Range Interpretation Comments Neutrophils # (test code = Neutrophils 6.5 1.5-8.1 #) [place] 406462-10-30 10:15:00 Test Item Value Reference Range Interpretation Comments Lymphocytes # (test code = Lymphocytes 3.4 1.0-5.5 #) [place] 406462-10-30 10:15:00 Test Item Value Reference Range Interpretation Comments Monocytes # (test code 0.5 See_Comment [Aut omated message] The = Monocytes #) system which generated this result tra nsmitted reference range : <=0.8. The reference r kyle was not used to int erpret this result as normal/abnormal . [place] 406462-10-30 10:15:00 Test Item Value Reference Range Interpretation Comments Eosinophils # (test code 0.4 See_Comment [A utomated message] The = Eosinophils #) system whic h generated this result tra nsmitted reference range : <=0.5. The reference r kyle was not used to int erpret this result as normal/abnormal . [place] [address]-10-30 10:15:00 Test Item Value Reference Range Interpretation Comments Basophils # (test code 0.1 See_Comment [Aut omated message] The = Basophils #) system which generated this result tra nsmitted reference range : <=0.2. The reference r kyle was not used to int erpret this result as normal/abnormal . [facility] CenterLuundrrKFHSKEQZG8899-30-99 10:15:00 Test Item Value Reference Range Interpretation Comments Glucose Lvl (test code = Glucose Lvl) 141 70-99 [facility] CenterOpzwvgyWXRZRQKAW1336-76-36 10:15:00 Test Item Value Reference Range Interpretation Comments BUN (test code = BUN) 12 7-22 [facility] CenterJfymfkvROZTCBFGU2514-58-88 10:15:00 Test Item Value Reference Range Interpretation Comments Creatinine Lvl (test code = Creatinine 0.42 0.50-1.40 Lvl) [facility] CenterYlknbdgUUULDPXZO8719-15-51 10:15:00 Test Item Value Reference Range Interpretation Comments Sodium Lvl (test code = Sodium Lvl) 135 135-145 [facility] CenterIshyonfWYOYCMLXQ6195-84-38 10:15:00 Test Item Value Reference Range Interpretation Comments Potassium Lvl (test code = Potassium 4.2 3.5-5.1 Lvl) [facility] CenterAfukykxMHWWKNYIO8258-57-82 10:15:00 Test Item Value Reference Range Interpretation Comments Chloride Lvl (test code = Chloride Lvl) 101 95-109 [facility] CenterSzncmoiILZLGSUUB5779-92-42 10:15:00 Test Item Value Reference Range Interpretation Comments CO2 (test code = CO2) 30 24-32 [facility] CenterBcenoqcMTYUMICBZ7622-73-29 10:15:00 Test Item Value Reference Range Interpretation Comments AGAP (test code = AGAP) 8.2 10.0-20.0 [facility] CenterNscrvevTGKOJTVEB9202-10-07 10:15:00 Test Item Value Reference Range Interpretation Comments Calcium Lvl (test code = Calcium Lvl) 8.9 8.5-10.5 [facility] CenterOeywtnfZPCVMUQSR1315-13-92 10:15:00 Test Item Value Reference Range Interpretation Comments eGFR (test code = eGFR) 116 [facility] CenterPvkiwysNUVOTIYCJ7278-54-02 10:15:00 Test Item Value Reference Range Interpretation Comments Magnesium Lvl (test code = Magnesium 1.9 1.8-2.4 Lvl) [facility] CenterTmggzecPYHHQVKBR6390-35-94 10:15:00 Test Item Value Reference Range Interpretation Comments Phosphorus (test code = Phosphorus) 4.2 2.5-4.5 [facility] CenterHderxlrIYVYLRCVF7373-41-76 10:15:00 Test Item Value Reference Range Interpretation Comments Ca Ion WB (test code = Ca Ion WB) 1.23 1.05-1.25 [facility] CenterBjlzfjpAFUWECZIG3594-64-55 10:15:00 Test Item Value Reference Range Interpretation Comments Ca Ion at pH 7.4 WB (test code = Ca Ion 1.19 1.05-1.25 at pH 7.4 WB) [facility] HospitalUhmqachVMKTNBHEWN7929-48-86 10:15:00 Test Item Value Reference Range Interpretation Comments WBC (test code = WBC) 10.9 3.7-10.4 [facility] HospitalTgdkxmkMJQDCJPUGU4553-88-96 10:15:00 Test Item Value Reference Range Interpretation Comments RBC (test code = RBC) 2.89 4.20-5.40 [facility] HospitalUkbnsnmHSMTYBELPP6327-68-74 10:15:00 Test Item Value Reference Range Interpretation Comments Hgb (test code = Hgb) 8.2 12.0-16.0 [facility] HospitalYsmtkftFBWQMIIXMW0571-89-14 10:15:00 Test Item Value Reference Range Interpretation Comments Hct (test code = Hct) 24.5 36.0-48.0 [facility] HospitalTorrxojFQKEHIUWTH0607-90-85 10:15:00 Test Item Value Reference Range Interpretation Comments MCV (test code = MCV) 84.7 80.0-98.0 [facility] HospitalSqtnxgcCSDEJPZKGQ1881-96-21 10:15:00 Test Item Value Reference Range Interpretation Comments MCH (test code = MCH) 28.4 pg 27.0-31.0 [facility] HospitalMkcecitABBRKTYIEZ7657-28-42 10:15:00 Test Item Value Reference Range Interpretation Comments MCHC (test code = MCHC) 33.5 32.0-36.0 [facility] HospitalBuenelvXWJMJCEHYX4927-66-84 10:15:00 Test Item Value Reference Range Interpretation Comments RDW (test code = RDW) 13.5 11.5-14.5 [facility] HospitalEzosgduLJBVBYSAIP7435-02-40 10:15:00 Test Item Value Reference Range Interpretation Comments Platelet (test code = Platelet) 452 533-450 [facility] HospitalFfuohmbXHLTNEYDXT5147-07-75 10:15:00 Test Item Value Reference Range Interpretation Comments MPV (test code = MPV) 8.1 7.4-10.4 [place] 406462-10-30 10:15:00 Test Item Value Reference Range Interpretation Comments Segs (test code = Segs) 59.9 45.0-75.0 [place] 406462-10-30 10:15:00 Test Item Value Reference Range Interpretation Comments Lymphocytes (test code = Lymphocytes) 31.3 20.0-40.0 [place] 406462-10-30 10:15:00 Test Item Value Reference Range Interpretation Comments Monocytes (test code = Monocytes) 4.9 2.0-12.0 [place] 406462-10-30 10:15:00 Test Item Value Reference Range Interpretation Comments Eosinophils (test code = 3.3 See_Comment [A utomated message] The Eosinophils) system which ge nerated this result tra nsmitted reference range : <=4.0. The reference r kyle was not used to int erpret this result as normal/abnormal . [place] [address]-10-30 10:15:00 Test Item Value Reference Range Interpretation Comments Basophils (test code = 0.6 See_Comment [Aut omated message] The Basophils) system which ge nerated this result tra nsmitted reference range : <=1.0. The reference r kyle was not used to int erpret this result as normal/abnormal . [facility] HospitalEgirugvLWFTOCQFKR6263-30-71 10:15:00 Test Item Value Reference Range Interpretation Comments Neutrophils # (test code = Neutrophils 6.5 1.5-8.1 #) [place] 406462-10-30 10:15:00 Test Item Value Reference Range Interpretation Comments Lymphocytes # (test code = Lymphocytes 3.4 1.0-5.5 #) [place] 406462-10-30 10:15:00 Test Item Value Reference Range Interpretation Comments Monocytes # (test code 0.5 See_Comment [Aut omated message] The = Monocytes #) system which generated this result tra nsmitted reference range : <=0.8. The reference r kyle was not used to int erpret this result as normal/abnormal . [place] 406462-10-30 10:15:00 Test Item Value Reference Range Interpretation Comments Eosinophils # (test code 0.4 See_Comment [A utomated message] The = Eosinophils #) system whic h generated this result tra nsmitted reference range : <=0.5. The reference r kyle was not used to int erpret this result as normal/abnormal . [facility]RMYP8580[facility]59 10:15:00 Test Item Value Reference Range Interpretation Comments Basophils # (test code 0.1 See_Comment [Aut omated message] The = Basophils #) system which generated this result tra nsmitted reference range : <=0.2. The reference r kyle was not used to int erpret this result as normal/abnormal . [facility] CenterWoekcwkWWFUPTTWL7977-67-91 10:15:00 Test Item Value Reference Range Interpretation Comments Glucose Lvl (test code = Glucose Lvl) 141 70-99 [facility] CenterSawztpuTLZRKZGLA1313-63-07 10:15:00 Test Item Value Reference Range Interpretation Comments BUN (test code = BUN) 12 7-22 [facility] CenterJmryrcoTFROYXRLA2111-20-64 10:15:00 Test Item Value Reference Range Interpretation Comments Creatinine Lvl (test code = Creatinine 0.42 0.50-1.40 Lvl) [facility] CenterDtiscddEKTKEZLJW1582-07-26 10:15:00 Test Item Value Reference Range Interpretation Comments Sodium Lvl (test code = Sodium Lvl) 135 135-145 [facility] CenterTcawaauYVSAGLRKG4072-63-05 10:15:00 Test Item Value Reference Range Interpretation Comments Potassium Lvl (test code = Potassium 4.2 3.5-5.1 Lvl) [facility] CenterUozqximYEQDMMIBW8616-55-82 10:15:00 Test Item Value Reference Range Interpretation Comments Chloride Lvl (test code = Chloride Lvl) 101 95-109 [facility] CenterCnbqludSXGBJOOCL8902-81-61 10:15:00 Test Item Value Reference Range Interpretation Comments CO2 (test code = CO2) 30 24-32 [facility] CenterCywqmteJYOOCOGAS6545-81-87 10:15:00 Test Item Value Reference Range Interpretation Comments AGAP (test code = AGAP) 8.2 10.0-20.0 [facility] CenterYkfrlybQJJUJXEGY6334-73-11 10:15:00 Test Item Value Reference Range Interpretation Comments Calcium Lvl (test code = Calcium Lvl) 8.9 8.5-10.5 [facility] CenterUcraopgIBWBONUSJ2262-30-86 10:15:00 Test Item Value Reference Range Interpretation Comments eGFR (test code = eGFR) 116 [place] 223672-10-30 10:15:00 Test Item Value Reference Range Interpretation Comments Magnesium Lvl (test code = Magnesium 1.9 1.8-2.4 Lvl) [facility] CenterQiblitbAYILNBXUU1546-51-63 10:15:00 Test Item Value Reference Range Interpretation Comments Phosphorus (test code = Phosphorus) 4.2 2.5-4.5 [place] 223672-10-30 10:15:00 Test Item Value Reference Range Interpretation Comments Ca Ion WB (test code = Ca Ion WB) 1.23 1.05-1.25 [place] 223672-10-30 10:15:00 Test Item Value Reference Range Interpretation Comments Ca Ion at pH 7.4 WB (test code = Ca Ion 1.19 1.05-1.25 at pH 7.4 WB) [facility]HisnghzWALXRMOEJX1761-18-81 10:15:00 Test Item Value Reference Range Interpretation Comments WBC (test code = WBC) 10.9 3.7-10.4 [facility] HospitalJbxswvvNRDOUIPGUZ9841-27-58 10:15:00 Test Item Value Reference Range Interpretation Comments RBC (test code = RBC) 2.89 4.20-5.40 [place] 406462-10-30 10:15:00 Test Item Value Reference Range Interpretation Comments Hgb (test code = Hgb) 8.2 12.0-16.0 [place] 406462-10-30 10:15:00 Test Item Value Reference Range Interpretation Comments Hct (test code = Hct) 24.5 36.0-48.0 [place] 406462-10-30 10:15:00 Test Item Value Reference Range Interpretation Comments MCV (test code = MCV) 84.7 80.0-98.0 [place] [address]-10-30 10:15:00 Test Item Value Reference Range Interpretation Comments MCH (test code = MCH) 28.4 pg 27.0-31.0 [place] 406462-10-30 10:15:00 Test Item Value Reference Range Interpretation Comments MCHC (test code = MCHC) 33.5 32.0-36.0 [place] 406462-10-30 10:15:00 Test Item Value Reference Range Interpretation Comments RDW (test code = RDW) 13.5 11.5-14.5 [place] 406462-10-30 10:15:00 Test Item Value Reference Range Interpretation Comments Platelet (test code = Platelet) 459 133-450 [place] 406462-10-30 10:15:00 Test Item Value Reference Range Interpretation Comments MPV (test code = MPV) 8.1 7.4-10.4 [place] 406462-10-30 10:15:00 Test Item Value Reference Range Interpretation Comments Segs (test code = Segs) 59.9 45.0-75.0 [place] 406462-10-30 10:15:00 Test Item Value Reference Range Interpretation Comments Lymphocytes (test code = Lymphocytes) 31.3 20.0-40.0 [place] [address]-10-30 10:15:00 Test Item Value Reference Range Interpretation Comments Monocytes (test code = Monocytes) 4.9 2.0-12.0 [place] 406462-10-30 10:15:00 Test Item Value Reference Range Interpretation Comments Eosinophils (test code = 3.3 See_Comment [A utomated message] The Eosinophils) system which ge nerated this result tra nsmitted reference range : <=4.0. The reference r kyle was not used to int erpret this result as normal/abnormal . [facility] HospitalGcyvtdjPQUJYPLRYE7519-61-74 10:15:00 Test Item Value Reference Range Interpretation Comments Basophils (test code = 0.6 See_Comment [Aut omated message] The Basophils) system which ge nerated this result tra nsmitted reference range : <=1.0. The reference r kyle was not used to int erpret this result as normal/abnormal . [facility] HospitalEbdcmjkSDPPIOBBMT2602-79-60 10:15:00 Test Item Value Reference Range Interpretation Comments Neutrophils # (test code = Neutrophils 6.5 1.5-8.1 #) [place] 406462-10-30 10:15:00 Test Item Value Reference Range Interpretation Comments Lymphocytes # (test code = Lymphocytes 3.4 1.0-5.5 #) [place] 406462-10-30 10:15:00 Test Item Value Reference Range Interpretation Comments Monocytes # (test code 0.5 See_Comment [Aut omated message] The = Monocytes #) system which generated this result tra nsmitted reference range : <=0.8. The reference r kyle was not used to int erpret this result as normal/abnormal . [facility] HospitalFddhuirWGWYBNJOJA6402-29-29 10:15:00 Test Item Value Reference Range Interpretation Comments Eosinophils # (test code 0.4 See_Comment [A utomated message] The = Eosinophils #) system whic h generated this result tra nsmitted reference range : <=0.5. The reference r kyle was not used to int erpret this result as normal/abnormal . [facility] HospitalKmroqliGHYPXTRDYO7001-53-30 10:15:00 Test Item Value Reference Range Interpretation Comments Basophils # (test code 0.1 See_Comment [Aut omated message] The = Basophils #) system which generated this result tra nsmitted reference range : <=0.2. The reference r kyle was not used to int erpret this result as normal/abnormal . [facility] CenterOskvmjwJXSGMDKIV6049-37-65 10:15:00 Test Item Value Reference Range Interpretation Comments Glucose Lvl (test code = Glucose Lvl) 141 70-99 [facility] CenterFcrqdnxJMDRQWLXC7362-17-28 10:15:00 Test Item Value Reference Range Interpretation Comments BUN (test code = BUN) 12 7-22 [facility] CenterEaofjomNECWXEMLW2800-05-02 10:15:00 Test Item Value Reference Range Interpretation Comments Creatinine Lvl (test code = Creatinine 0.42 0.50-1.40 Lvl) [facility] CenterDyupbyzVCCMRYPOC5010-43-38 10:15:00 Test Item Value Reference Range Interpretation Comments Sodium Lvl (test code = Sodium Lvl) 135 135-145 [facility] CenterZtayehbYZXBNEPIC3613-30-73 10:15:00 Test Item Value Reference Range Interpretation Comments Potassium Lvl (test code = Potassium 4.2 3.5-5.1 Lvl) [facility] CenterPwfqzsiVEUUGVCAS6905-53-58 10:15:00 Test Item Value Reference Range Interpretation Comments Chloride Lvl (test code = Chloride Lvl) 101 95-109 [facility] CenterFqavmzlUKCVROKKN6340-21-91 10:15:00 Test Item Value Reference Range Interpretation Comments CO2 (test code = CO2) 30 24-32 [facility] CenterPkfiejyDKNBSHZTP6110-80-28 10:15:00 Test Item Value Reference Range Interpretation Comments AGAP (test code = AGAP) 8.2 10.0-20.0 [place] 223672-10-30 10:15:00 Test Item Value Reference Range Interpretation Comments Calcium Lvl (test code = Calcium Lvl) 8.9 8.5-10.5 [facility] CenterXfgzvmkTDZBGEUEF2949-30-94 10:15:00 Test Item Value Reference Range Interpretation Comments eGFR (test code = eGFR) 116 [facility] CenterGmvuozaPWFQHFVZJ8134-56-31 10:15:00 Test Item Value Reference Range Interpretation Comments Magnesium Lvl (test code = Magnesium 1.9 1.8-2.4 Lvl) [facility] CenterOynhsylVVXLBLYFI2902-20-48 10:15:00 Test Item Value Reference Range Interpretation Comments Phosphorus (test code = Phosphorus) 4.2 2.5-4.5 [facility] CenterGqcahndQVTILYFCL2434-83-35 10:15:00 Test Item Value Reference Range Interpretation Comments Ca Ion WB (test code = Ca Ion WB) 1.23 1.05-1.25 [facility] CenterXikrorpWIMTDUWDI2405-39-65 10:15:00 Test Item Value Reference Range Interpretation Comments Ca Ion at pH 7.4 WB (test code = Ca Ion 1.19 1.05-1.25 at pH 7.4 WB) [facility] HospitalSctxzxnLRBKBRGSGN3290-68-07 10:15:00 Test Item Value Reference Range Interpretation Comments WBC (test code = WBC) 10.9 3.7-10.4 [place] 406462-10-30 10:15:00 Test Item Value Reference Range Interpretation Comments RBC (test code = RBC) 2.89 4.20-5.40 [place] 406462-10-30 10:15:00 Test Item Value Reference Range Interpretation Comments Hgb (test code = Hgb) 8.2 12.0-16.0 [place] [address]-10-30 10:15:00 Test Item Value Reference Range Interpretation Comments Hct (test code = Hct) 24.5 36.0-48.0 [facility] HospitalIcryyopORCSQRZRPC8422-08-33 10:15:00 Test Item Value Reference Range Interpretation Comments MCV (test code = MCV) 84.7 80.0-98.0 [place] 406462-10-30 10:15:00 Test Item Value Reference Range Interpretation Comments MCH (test code = MCH) 28.4 pg 27.0-31.0 [facility] HospitalPomfpwyWNZJTDKEIT7468-07-72 10:15:00 Test Item Value Reference Range Interpretation Comments MCHC (test code = MCHC) 33.5 32.0-36.0 [facility] HospitalOhjbwckAFQRCEHYLQ0227-16-28 10:15:00 Test Item Value Reference Range Interpretation Comments RDW (test code = RDW) 13.5 11.5-14.5 [facility] HospitalDvozoiyIXQQMPWUMO1657-60-54 10:15:00 Test Item Value Reference Range Interpretation Comments Platelet (test code = Platelet) 459 133-450 [facility] HospitalPpnzkwcENMRVCOZPI7357-36-92 10:15:00 Test Item Value Reference Range Interpretation Comments MPV (test code = MPV) 8.1 7.4-10.4 [facility] HospitalQcbahdfAEHYSHBYWI2823-70-06 10:15:00 Test Item Value Reference Range Interpretation Comments Segs (test code = Segs) 59.9 45.0-75.0 [facility] HospitalTmgolplRTFZDUNFDX6982-42-24 10:15:00 Test Item Value Reference Range Interpretation Comments Lymphocytes (test code = Lymphocytes) 31.3 20.0-40.0 [facility] HospitalCfmoxirJOLOQVSUEQ9465-05-78 10:15:00 Test Item Value Reference Range Interpretation Comments Monocytes (test code = Monocytes) 4.9 2.0-12.0 [facility] HospitalDdqyihyQPZGZPXVFQ5654-21-23 10:15:00 Test Item Value Reference Range Interpretation Comments Eosinophils (test code = 3.3 See_Comment [A utomated message] The Eosinophils) system which ge nerated this result tra nsmitted reference range : <=4.0. The reference r kyle was not used to int erpret this result as normal/abnormal . [facility] HospitalLgpamhmGEQLVMIJOM5456-98-87 10:15:00 Test Item Value Reference Range Interpretation Comments Basophils (test code = 0.6 See_Comment [Aut omated message] The Basophils) system which ge nerated this result tra nsmitted reference range : <=1.0. The reference r kyle was not used to int erpret this result as normal/abnormal . [facility] HospitalRujsyavZFRMRRNYBV4011-04-11 10:15:00 Test Item Value Reference Range Interpretation Comments Neutrophils # (test code = Neutrophils 6.5 1.5-8.1 #) [place] 406462-10-30 10:15:00 Test Item Value Reference Range Interpretation Comments Lymphocytes # (test code = Lymphocytes 3.4 1.0-5.5 #) [facility] HospitalIsuvrblYLKTGTYMQQ5190-50-20 10:15:00 Test Item Value Reference Range Interpretation Comments Monocytes # (test code 0.5 See_Comment [Aut omated message] The = Monocytes #) system which generated this result tra nsmitted reference range : <=0.8. The reference r kyle was not used to int erpret this result as normal/abnormal . [facility] HospitalSpghyaiSJXEICZUJD2404-09-97 10:15:00 Test Item Value Reference Range Interpretation Comments Eosinophils # (test code 0.4 See_Comment [A utomated message] The = Eosinophils #) system whic h generated this result tra nsmitted reference range : <=0.5. The reference r kyle was not used to int erpret this result as normal/abnormal . [place] 406462-10-30 10:15:00 Test Item Value Reference Range Interpretation Comments Basophils # (test code 0.1 See_Comment [Aut omated message] The = Basophils #) system which generated this result tra nsmitted reference range : <=0.2. The reference r kyle was not used to int erpret this result as normal/abnormal . [facility] CenterLkmrsefHBDCJSKGD3188-54-06 10:15:00 Test Item Value Reference Range Interpretation Comments Glucose Lvl (test code = Glucose Lvl) 141 70-99 [facility] CenterVflkgkpJNFOPBZQQ4429-82-85 10:15:00 Test Item Value Reference Range Interpretation Comments BUN (test code = BUN) 12 7-22 [place] 223672-10-30 10:15:00 Test Item Value Reference Range Interpretation Comments Creatinine Lvl (test code = Creatinine 0.42 0.50-1.40 Lvl) [facility] CenterSqotfmwNYVFXDWNP6593-50-25 10:15:00 Test Item Value Reference Range Interpretation Comments Sodium Lvl (test code = Sodium Lvl) 135 135-145 [place] 223672-10-30 10:15:00 Test Item Value Reference Range Interpretation Comments Potassium Lvl (test code = Potassium 4.2 3.5-5.1 Lvl) [facility] CenterWvofmgjGMAFMBKPS6927-41-58 10:15:00 Test Item Value Reference Range Interpretation Comments Chloride Lvl (test code = Chloride Lvl) 101 95-109 [facility] CenterMlhtoiwFVIYLZZJL7479-71-22 10:15:00 Test Item Value Reference Range Interpretation Comments CO2 (test code = CO2) 30 24-32 [facility] CenterLkgccssYJPVMXFVF9883-64-65 10:15:00 Test Item Value Reference Range Interpretation Comments AGAP (test code = AGAP) 8.2 10.0-20.0 [facility] CenterBquwushVVWKOOBQM5250-90-01 10:15:00 Test Item Value Reference Range Interpretation Comments Calcium Lvl (test code = Calcium Lvl) 8.9 8.5-10.5 [facility] CenterWixcirsXLGOZZJBJ0631-81-95 10:15:00 Test Item Value Reference Range Interpretation Comments eGFR (test code = eGFR) 116 [facility] CenterHsppoauIEJSHJVGU3698-98-44 10:15:00 Test Item Value Reference Range Interpretation Comments Magnesium Lvl (test code = Magnesium 1.9 1.8-2.4 Lvl) [facility] CenterPuzitzzYAJHKDFTJ8384-81-65 10:15:00 Test Item Value Reference Range Interpretation Comments Phosphorus (test code = Phosphorus) 4.2 2.5-4.5 [facility] CenterHebndszMHGTPHDRY3322-49-85 10:15:00 Test Item Value Reference Range Interpretation Comments Ca Ion WB (test code = Ca Ion WB) 1.23 1.05-1.25 [facility] CenterMdmifvtCJJDXWAOP2061-15-79 10:15:00 Test Item Value Reference Range Interpretation Comments Ca Ion at pH 7.4 WB (test code = Ca Ion 1.19 1.05-1.25 at pH 7.4 WB) [facility] HospitalCazdxubWVDETUJTPC6783-38-00 10:15:00 Test Item Value Reference Range Interpretation Comments WBC (test code = WBC) 10.9 3.7-10.4 [facility] HospitalOiewbflJGJOFPONRE2122-16-55 10:15:00 Test Item Value Reference Range Interpretation Comments RBC (test code = RBC) 2.89 4.20-5.40 [facility] HospitalAlywxiiDIAATPLKPW6011-35-47 10:15:00 Test Item Value Reference Range Interpretation Comments Hgb (test code = Hgb) 8.2 12.0-16.0 [facility] HospitalHgspjcaGPERGGOVHE8898-66-59 10:15:00 Test Item Value Reference Range Interpretation Comments Hct (test code = Hct) 24.5 36.0-48.0 [place] 406462-10-30 10:15:00 Test Item Value Reference Range Interpretation Comments MCV (test code = MCV) 84.7 80.0-98.0 [place] 406462-10-30 10:15:00 Test Item Value Reference Range Interpretation Comments MCH (test code = MCH) 28.4 pg 27.0-31.0 [place] 406462-10-30 10:15:00 Test Item Value Reference Range Interpretation Comments MCHC (test code = MCHC) 33.5 32.0-36.0 [place] 406462-10-30 10:15:00 Test Item Value Reference Range Interpretation Comments RDW (test code = RDW) 13.5 11.5-14.5 [place] 406462-10-30 10:15:00 Test Item Value Reference Range Interpretation Comments Platelet (test code = Platelet) 452 388-450 [facility] HospitalTqbavnuPORXPMMVNW2240-74-11 10:15:00 Test Item Value Reference Range Interpretation Comments MPV (test code = MPV) 8.1 7.4-10.4 [place] 406462-10-30 10:15:00 Test Item Value Reference Range Interpretation Comments Segs (test code = Segs) 59.9 45.0-75.0 [place] 406462-10-30 10:15:00 Test Item Value Reference Range Interpretation Comments Lymphocytes (test code = Lymphocytes) 31.3 20.0-40.0 [place] 406462-10-30 10:15:00 Test Item Value Reference Range Interpretation Comments Monocytes (test code = Monocytes) 4.9 2.0-12.0 [place] [address]-10-30 10:15:00 Test Item Value Reference Range Interpretation Comments Eosinophils (test code = 3.3 See_Comment [A utomated message] The Eosinophils) system which ge nerated this result tra nsmitted reference range : <=4.0. The reference r kyle was not used to int erpret this result as normal/abnormal . [place] 406462-10-30 10:15:00 Test Item Value Reference Range Interpretation Comments Basophils (test code = 0.6 See_Comment [Aut omated message] The Basophils) system which ge nerated this result tra nsmitted reference range : <=1.0. The reference r kyle was not used to int erpret this result as normal/abnormal . [facility] HospitalTrrvyhdWKOCNDZVFQ5886-51-97 10:15:00 Test Item Value Reference Range Interpretation Comments Neutrophils # (test code = Neutrophils 6.5 1.5-8.1 #) [facility] HospitalBvlxlixAZAGUGWWHE0893-86-87 10:15:00 Test Item Value Reference Range Interpretation Comments Lymphocytes # (test code = Lymphocytes 3.4 1.0-5.5 #) [facility] HospitalAgyahpfXWBMDNJUDC3869-42-72 10:15:00 Test Item Value Reference Range Interpretation Comments Monocytes # (test code 0.5 See_Comment [Aut omated message] The = Monocytes #) system which generated this result tra nsmitted reference range : <=0.8. The reference r kyle was not used to int erpret this result as normal/abnormal . [facility] HospitalYiichnjTPXNDQGYQB6927-42-16 10:15:00 Test Item Value Reference Range Interpretation Comments Eosinophils # (test code 0.4 See_Comment [A utomated message] The = Eosinophils #) system whic h generated this result tra nsmitted reference range : <=0.5. The reference r kyle was not used to int erpret this result as normal/abnormal . [facility] HospitalDuqylkqQQGRPFSZZA9242-75-75 10:15:00 Test Item Value Reference Range Interpretation Comments Basophils # (test code 0.1 See_Comment [Aut omated message] The = Basophils #) system which generated this result tra nsmitted reference range : <=0.2. The reference r kyle was not used to int erpret this result as normal/abnormal . [facility] CenterBehxyegBKHBEQKGM5251-48-78 10:15:00 Test Item Value Reference Range Interpretation Comments Glucose Lvl (test code = Glucose Lvl) 141 70-99 [facility] CenterAnaosbgQDPCFKDQO0051-11-29 10:15:00 Test Item Value Reference Range Interpretation Comments BUN (test code = BUN) 12 7-22 [facility] CenterUiqzwvhPACEWKCBP5194-50-08 10:15:00 Test Item Value Reference Range Interpretation Comments Creatinine Lvl (test code = Creatinine 0.42 0.50-1.40 Lvl) [facility] CenterOispxiiQIWPBRTUT7594-25-15 10:15:00 Test Item Value Reference Range Interpretation Comments Sodium Lvl (test code = Sodium Lvl) 135 135-145 [facility] CenterXuksbeoXVCWXKZHH8854-25-50 10:15:00 Test Item Value Reference Range Interpretation Comments Potassium Lvl (test code = Potassium 4.2 3.5-5.1 Lvl) [facility] CenterXsvtrlvAIMZYEJBG2021-42-71 10:15:00 Test Item Value Reference Range Interpretation Comments Chloride Lvl (test code = Chloride Lvl) 101 95-109 [facility] CenterRtkinbjHYVSALNQY7671-28-71 10:15:00 Test Item Value Reference Range Interpretation Comments CO2 (test code = CO2) 30 24-32 [facility] CenterWneomjkVKBZNFQKZ0800-84-73 10:15:00 Test Item Value Reference Range Interpretation Comments AGAP (test code = AGAP) 8.2 10.0-20.0 [facility] CenterAgjfvgpIWWFMKBAP7052-81-71 10:15:00 Test Item Value Reference Range Interpretation Comments Calcium Lvl (test code = Calcium Lvl) 8.9 8.5-10.5 [facility] CenterHuxuwdgHQHMHCFGP2513-68-07 10:15:00 Test Item Value Reference Range Interpretation Comments eGFR (test code = eGFR) 116 [facility] CenterWumiuvcJAGCMWQOW4843-28-58 10:15:00 Test Item Value Reference Range Interpretation Comments Magnesium Lvl (test code = Magnesium 1.9 1.8-2.4 Lvl) [facility] CenterQjlqkakXMXGSPJNN0441-46-37 10:15:00 Test Item Value Reference Range Interpretation Comments Phosphorus (test code = Phosphorus) 4.2 2.5-4.5 [facility] CenterXxcotvcLIRDGCGJH6388-78-46 10:15:00 Test Item Value Reference Range Interpretation Comments Ca Ion WB (test code = Ca Ion WB) 1.23 1.05-1.25 [facility] CenterMgmafrxLGFLATWZZ1191-84-53 10:15:00 Test Item Value Reference Range Interpretation Comments Ca Ion at pH 7.4 WB (test code = Ca Ion 1.19 1.05-1.25 at pH 7.4 WB) [facility] HospitalSvrprkwIFHJKJSUWJ2568-51-11 10:15:00 Test Item Value Reference Range Interpretation Comments WBC (test code = WBC) 10.9 3.7-10.4 [facility] HospitalEmlsfrxCRDJPKLMUR0561-51-90 10:15:00 Test Item Value Reference Range Interpretation Comments RBC (test code = RBC) 2.89 4.20-5.40 [facility] HospitalDaotvkpCCLWYMOAAU1141-59-67 10:15:00 Test Item Value Reference Range Interpretation Comments Hgb (test code = Hgb) 8.2 12.0-16.0 [place] 406462-10-30 10:15:00 Test Item Value Reference Range Interpretation Comments Hct (test code = Hct) 24.5 36.0-48.0 [facility] HospitalVcwikjaGBDAVVUQZN2910-64-96 10:15:00 Test Item Value Reference Range Interpretation Comments MCV (test code = MCV) 84.7 80.0-98.0 [place] 406462-10-30 10:15:00 Test Item Value Reference Range Interpretation Comments MCH (test code = MCH) 28.4 pg 27.0-31.0 [facility] HospitalXzdhqdsZTTNHUGTGA5959-07-54 10:15:00 Test Item Value Reference Range Interpretation Comments MCHC (test code = MCHC) 33.5 32.0-36.0 [facility] HospitalHyyvdikMZVFIMZYYT6710-68-91 10:15:00 Test Item Value Reference Range Interpretation Comments RDW (test code = RDW) 13.5 11.5-14.5 [facility] HospitalUqvttofRIBKOXBWRX9996-31-77 10:15:00 Test Item Value Reference Range Interpretation Comments Platelet (test code = Platelet) 459 305-450 [facility] HospitalKwfeezxPWBOZKFONZ6534-47-52 10:15:00 Test Item Value Reference Range Interpretation Comments MPV (test code = MPV) 8.1 7.4-10.4 [place] 406462-10-30 10:15:00 Test Item Value Reference Range Interpretation Comments Segs (test code = Segs) 59.9 45.0-75.0 [facility] [facility]UBZC[facility]TOATU6763-99-95 10:15:00 Test Item Value Reference Range Interpretation Comments Lymphocytes (test code = Lymphocytes) 31.3 20.0-40.0 [facility]DmaatapGFRQRZJAJS8286-41-70 10:15:00 Test Item Value Reference Range Interpretation Comments Monocytes (test code = Monocytes) 4.9 2.0-12.0 [place] 406462-10-30 10:15:00 Test Item Value Reference Range Interpretation Comments Eosinophils (test code = 3.3 See_Comment [A utomated message] The Eosinophils) system which ge nerated this result tra nsmitted reference range : <=4.0. The reference r kyle was not used to int erpret this result as normal/abnormal . [facility] HospitalVvbdmlcCVYMXVNQLH9028-94-01 10:15:00 Test Item Value Reference Range Interpretation Comments Basophils (test code = 0.6 See_Comment [Aut omated message] The Basophils) system which ge nerated this result tra nsmitted reference range : <=1.0. The reference r kyle was not used to int erpret this result as normal/abnormal . [facility] HospitalZhyyvhsASAGZVTPCP6943-29-10 10:15:00 Test Item Value Reference Range Interpretation Comments Neutrophils # (test code = Neutrophils 6.5 1.5-8.1 #) [facility] HospitalUbrabcyJEEWJBSDTS0103-24-59 10:15:00 Test Item Value Reference Range Interpretation Comments Lymphocytes # (test code = Lymphocytes 3.4 1.0-5.5 #) [facility] HospitalCenjocbSFVGUPLGPP4805-13-51 10:15:00 Test Item Value Reference Range Interpretation Comments Monocytes # (test code 0.5 See_Comment [Aut omated message] The = Monocytes #) system which generated this result tra nsmitted reference range : <=0.8. The reference r kyle was not used to int erpret this result as normal/abnormal . [facility] HospitalSkgtmbkYHDNLNHHEC8155-39-20 10:15:00 Test Item Value Reference Range Interpretation Comments Eosinophils # (test code 0.4 See_Comment [A utomated message] The = Eosinophils #) system [facility] generated this result tra nsmitted reference range : <=0.5. The reference r kyle was not used to int erpret this result as normal/abnormal . [facility] HospitalEuimamwRHRLZQIGDR3078-94-35 10:15:00 Test Item Value Reference Range Interpretation Comments Basophils # (test code 0.1 See_Comment [Aut omated message] The = Basophils #) system which generated this result tra nsmitted reference range : <=0.2. The reference r kyle was not used to int erpret this result as normal/abnormal . [facility] CenterCjukagmFRXZJQYJJ1136-82-62 10:15:00 Test Item Value Reference Range Interpretation Comments Glucose Lvl (test code = Glucose Lvl) 141 70-99 [facility] CenterDurtwqqTKMKFVDHO5049-88-04 10:15:00 Test Item Value Reference Range Interpretation Comments BUN (test code = BUN) 12 7-22 [facility] CenterFpurxdnZGFNZIJKX7112-11-68 10:15:00 Test Item Value Reference Range Interpretation Comments Creatinine Lvl (test code = Creatinine 0.42 0.50-1.40 Lvl) [facility] CenterOfhedhdIXWNLMQMX8096-09-39 10:15:00 Test Item Value Reference Range Interpretation Comments Sodium Lvl (test code = Sodium Lvl) 135 135-145 [facility] CenterRsvmwljNBHMLEYHL4940-92-02 10:15:00 Test Item Value Reference Range Interpretation Comments Potassium Lvl (test code = Potassium 4.2 3.5-5.1 Lvl) [facility] CenterEcfbpjkVLSJYOHYS2698-14-96 10:15:00 Test Item Value Reference Range Interpretation Comments Chloride Lvl (test code = Chloride Lvl) 101 95-109 [facility] CenterQgjjoblCWRTXNWID5167-99-91 10:15:00 Test Item Value Reference Range Interpretation Comments CO2 (test code = CO2) 30 24-32 [facility] CenterKbmkrldKCAZSDFLI5466-14-45 10:15:00 Test Item Value Reference Range Interpretation Comments AGAP (test code = AGAP) 8.2 10.0-20.0 [facility] CenterLjihztlXPATUDVBG4797-76-57 10:15:00 Test Item Value Reference Range Interpretation Comments Calcium Lvl (test code = Calcium Lvl) 8.9 8.5-10.5 [facility] CenterVbfzwcjIMSDUPAPD7270-89-60 10:15:00 Test Item Value Reference Range Interpretation Comments eGFR (test code = eGFR) 116 [facility] CenterZwiyvnhZZJCBKTFM3439-27-12 10:15:00 Test Item Value Reference Range Interpretation Comments Magnesium Lvl (test code = Magnesium 1.9 1.8-2.4 Lvl) [facility] CenterVdmttaqSFHIBITTP8510-74-28 10:15:00 Test Item Value Reference Range Interpretation Comments Phosphorus (test code = Phosphorus) 4.2 2.5-4.5 [facility] CenterKlxoxqpQOKPQZDJM0663-34-01 10:15:00 Test Item Value Reference Range Interpretation Comments Ca Ion WB (test code = Ca Ion WB) 1.23 1.05-1.25 [facility] CenterLruodloPMAGGDYED2664-42-61 10:15:00 Test Item Value Reference Range Interpretation Comments Ca Ion at pH 7.4 WB (test code = Ca Ion 1.19 1.05-1.25 at pH 7.4 WB) [facility] HospitalYpooewuFBKVEFAAWD5621-48-57 10:15:00 Test Item Value Reference Range Interpretation Comments WBC (test code = WBC) 10.9 3.7-10.4 [facility] HospitalJxbqkeaNCMGGQKHSZ6367-93-99 10:15:00 Test Item Value Reference Range Interpretation Comments RBC (test code = RBC) 2.89 4.20-5.40 [facility] HospitalNlutdhjJPCVTACTKU2784-39-24 10:15:00 Test Item Value Reference Range Interpretation Comments Hgb (test code = Hgb) 8.2 12.0-16.0 [place] 406462-10-30 10:15:00 Test Item Value Reference Range Interpretation Comments Hct (test code = Hct) 24.5 36.0-48.0 [facility] HospitalTuuyaebGFJJWITGVC0891-02-07 10:15:00 Test Item Value Reference Range Interpretation Comments MCV (test code = MCV) 84.7 80.0-98.0 [facility] HospitalHqatdvyUEBAXGQPNR5008-39-98 10:15:00 Test Item Value Reference Range Interpretation Comments MCH (test code = MCH) 28.4 pg 27.0-31.0 [facility] HospitalOgihgvrYBIROZWCHH3038-78-09 10:15:00 Test Item Value Reference Range Interpretation Comments MCHC (test code = MCHC) 33.5 32.0-36.0 [facility] HospitalTbbrmohZPCCFEXMAC0807-28-45 10:15:00 Test Item Value Reference Range Interpretation Comments RDW (test code = RDW) 13.5 11.5-14.5 [facility] HospitalHhwvglqCFMGAXCUUY2750-07-25 10:15:00 Test Item Value Reference Range Interpretation Comments Platelet (test code = Platelet) 459 133-450 [facility] HospitalBqgmswjKKPSITTIRV7370-41-99 10:15:00 Test Item Value Reference Range Interpretation Comments MPV (test code = MPV) 8.1 7.4-10.4 [facility] HospitalImehnqaGTDIRSUCMQ6173-64-13 10:15:00 Test Item Value Reference Range Interpretation Comments Segs (test code = Segs) 59.9 45.0-75.0 [facility] HospitalShjtgknKZANTDSSHW1015-58-78 10:15:00 Test Item Value Reference Range Interpretation Comments Lymphocytes (test code = Lymphocytes) 31.3 20.0-40.0 [place] 406462-10-30 10:15:00 Test Item Value Reference Range Interpretation Comments Monocytes (test code = Monocytes) 4.9 2.0-12.0 [place] 406462-10-30 10:15:00 Test Item Value Reference Range Interpretation Comments Eosinophils (test code = 3.3 See_Comment [A utomated message] The Eosinophils) system which ge nerated this result tra nsmitted reference range : <=4.0. The reference r kyle was not used to int erpret this result as normal/abnormal . [place] 406462-10-30 10:15:00 Test Item Value Reference Range Interpretation Comments Basophils (test code = 0.6 See_Comment [Aut omated message] The Basophils) system which ge nerated this result tra nsmitted reference range : <=1.0. The reference r kyle was not used to int erpret this result as normal/abnormal . [facility] HospitalUwxenjcKXSDSBENXE8843-64-62 10:15:00 Test Item Value Reference Range Interpretation Comments Neutrophils # (test code = Neutrophils 6.5 1.5-8.1 #) [facility] HospitalXcxrvfsXTSLCGVYPB2673-22-42 10:15:00 Test Item Value Reference Range Interpretation Comments Lymphocytes # (test code = Lymphocytes 3.4 1.0-5.5 #) [place] 406462-10-30 10:15:00 Test Item Value Reference Range Interpretation Comments Monocytes # (test code 0.5 See_Comment [Aut omated message] The = Monocytes #) system which generated this result tra nsmitted reference range : <=0.8. The reference r kyle was not used to int erpret this result as normal/abnormal . [place] 406462-10-30 10:15:00 Test Item Value Reference Range Interpretation Comments Eosinophils # (test code 0.4 See_Comment [A utomated message] The = Eosinophils #) system whic h generated this result tra nsmitted reference range : <=0.5. The reference r kyle was not used to int erpret this result as normal/abnormal . [place] 406462-10-30 10:15:00 Test Item Value Reference Range Interpretation Comments Basophils # (test code 0.1 See_Comment [Aut omated message] The = Basophils #) system which generated this result tra nsmitted reference range : <=0.2. The reference r kyle was not used to int erpret this result as normal/abnormal . [facility] CenterAechrreCFLOCVGJA6622-63-96 10:15:00 Test Item Value Reference Range Interpretation Comments Glucose Lvl (test code = Glucose Lvl) 141 70-99 [facility] CenterFjussgxUJJRTEJXI6015-07-69 10:15:00 Test Item Value Reference Range Interpretation Comments BUN (test code = BUN) 12 7-22 [facility] CenterFhufgnkGAFIUOISQ0351-75-74 10:15:00 Test Item Value Reference Range Interpretation Comments Creatinine Lvl (test code = Creatinine 0.42 0.50-1.40 Lvl) [facility] CenterKkleipbSKNDKPYBU6460-95-59 10:15:00 Test Item Value Reference Range Interpretation Comments Sodium Lvl (test code = Sodium Lvl) 135 135-145 [facility] CenterZuyxijlMXHVVJTVE5169-51-56 10:15:00 Test Item Value Reference Range Interpretation Comments Potassium Lvl (test code = Potassium 4.2 3.5-5.1 Lvl) [facility] CenterLavksriZBPNPEHEM5046-78-52 10:15:00 Test Item Value Reference Range Interpretation Comments Chloride Lvl (test code = Chloride Lvl) 101 95-109 [facility] CenterDbyfabuBBONZLRNH0937-05-47 10:15:00 Test Item Value Reference Range Interpretation Comments CO2 (test code = CO2) 30 24-32 [facility] CenterPjxqvcbYKUMUCKSZ6190-95-81 10:15:00 Test Item Value Reference Range Interpretation Comments AGAP (test code = AGAP) 8.2 10.0-20.0 [facility] CenterVkyqwbhGFJZPOKRN8149-51-76 10:15:00 Test Item Value Reference Range Interpretation Comments Calcium Lvl (test code = Calcium Lvl) 8.9 8.5-10.5 [facility] CenterZkmmsynNHIWLZGEQ9010-49-97 10:15:00 Test Item Value Reference Range Interpretation Comments eGFR (test code = eGFR) 116 [facility] CenterFtczzhaKNTZVINDH4846-17-76 10:15:00 Test Item Value Reference Range Interpretation Comments Magnesium Lvl (test code = Magnesium 1.9 1.8-2.4 Lvl) [facility] CenterCddnegyEBSYJVDXR8028-18-71 10:15:00 Test Item Value Reference Range Interpretation Comments Phosphorus (test code = Phosphorus) 4.2 2.5-4.5 [facility] CenterNjrukkbTVKPOEHNT2216-48-62 10:15:00 Test Item Value Reference Range Interpretation Comments Ca Ion WB (test code = Ca Ion WB) 1.23 1.05-1.25 [facility] CenterKbwogdnGQDDINMTB7148-07-96 10:15:00 Test Item Value Reference Range Interpretation Comments Ca Ion at pH 7.4 WB (test code = Ca Ion 1.19 1.05-1.25 at pH 7.4 WB) [facility] HospitalTjigbvvFLXCYDSEJW6787-84-15 10:15:00 Test Item Value Reference Range Interpretation Comments WBC (test code = WBC) 10.9 3.7-10.4 [facility] HospitalFztvcmdJTKFZYETCW7469-87-48 10:15:00 Test Item Value Reference Range Interpretation Comments RBC (test code = RBC) 2.89 4.20-5.40 [facility] HospitalTnjrzoaUTAEJMNLJK4801-68-35 10:15:00 Test Item Value Reference Range Interpretation Comments Hgb (test code = Hgb) 8.2 12.0-16.0 [facility] HospitalNkquxqnAVJKEHANCH8337-73-84 10:15:00 Test Item Value Reference Range Interpretation Comments Hct (test code = Hct) 24.5 36.0-48.0 [facility] HospitalCzlgdwhUQLBPALRSN4869-59-61 10:15:00 Test Item Value Reference Range Interpretation Comments MCV (test code = MCV) 84.7 80.0-98.0 [facility] HospitalLoahxroOFGLZRBVPA0459-94-38 10:15:00 Test Item Value Reference Range Interpretation Comments MCH (test code = MCH) 28.4 pg 27.0-31.0 [facility] HospitalIvdimyuCQAAEPMHKB3448-60-93 10:15:00 Test Item Value Reference Range Interpretation Comments MCHC (test code = MCHC) 33.5 32.0-36.0 [facility] HospitalJpyaelwBTSHNOBIAK0587-07-87 10:15:00 Test Item Value Reference Range Interpretation Comments RDW (test code = RDW) 13.5 11.5-14.5 [facility] HospitalQdeifajDVZXSYDRSO1185-51-85 10:15:00 Test Item Value Reference Range Interpretation Comments Platelet (test code = Platelet) 135 134-560 [facility] HospitalSzwwjugSFNSPPMWNP3980-23-54 10:15:00 Test Item Value Reference Range Interpretation Comments MPV (test code = MPV) 8.1 7.4-10.4 [place] 406462-10-30 10:15:00 Test Item Value Reference Range Interpretation Comments Segs (test code = Segs) 59.9 45.0-75.0 [place] 406462-10-30 10:15:00 Test Item Value Reference Range Interpretation Comments Lymphocytes (test code = Lymphocytes) 31.3 20.0-40.0 [place] 406462-10-30 10:15:00 Test Item Value Reference Range Interpretation Comments Monocytes (test code = Monocytes) 4.9 2.0-12.0 [place] 406462-10-30 10:15:00 Test Item Value Reference Range Interpretation Comments Eosinophils (test code = 3.3 See_Comment [A utomated message] The Eosinophils) system which ge nerated this result tra nsmitted reference range : <=4.0. The reference r kyle was not used to int erpret this result as normal/abnormal . [facility] HospitalQslpvfvKUSPQBVRFM5523-27-02 10:15:00 Test Item Value Reference Range Interpretation Comments Basophils (test code = 0.6 See_Comment [Aut omated message] The Basophils) system which ge nerated this result tra nsmitted reference range : <=1.0. The reference r kyle was not used to int erpret this result as normal/abnormal . [facility] HospitalImsjqnuFNKCQHSHCK1853-06-17 10:15:00 Test Item Value Reference Range Interpretation Comments Neutrophils # (test code = Neutrophils 6.5 1.5-8.1 #) [facility] HospitalXxpavbyFTZFAWNCAD2931-45-40 10:15:00 Test Item Value Reference Range Interpretation Comments Lymphocytes # (test code = Lymphocytes 3.4 1.0-5.5 #) [place] 406462-10-30 10:15:00 Test Item Value Reference Range Interpretation Comments Monocytes # (test code 0.5 See_Comment [Aut omated message] The = Monocytes #) system which generated this result tra nsmitted reference range : <=0.8. The reference r kyle was not used to int erpret this result as normal/abnormal . [place] 406462-10-30 10:15:00 Test Item Value Reference Range Interpretation Comments Eosinophils # (test code 0.4 See_Comment [A utomated message] The = Eosinophils #) system whic h generated this result tra nsmitted reference range : <=0.5. The reference r kyle was not used to int erpret this result as normal/abnormal . [facility] HospitalJyndtlyFZIQYALOZR0239-97-84 10:15:00 Test Item Value Reference Range Interpretation Comments Basophils # (test code 0.1 See_Comment [Aut omated message] The = Basophils #) system which generated this result tra nsmitted reference range : <=0.2. The reference r kyle was not used to int erpret this result as normal/abnormal . [facility] CenterJrawxhrSIYRFTAVT5375-89-48 10:15:00 Test Item Value Reference Range Interpretation Comments Glucose Lvl (test code = Glucose Lvl) 141 70-99 [facility] CenterCuzgmqsWUXVMURFI7525-12-37 10:15:00 Test Item Value Reference Range Interpretation Comments BUN (test code = BUN) 12 7-22 [facility] CenterQengdxyWIBRBAPEM3430-87-66 10:15:00 Test Item Value Reference Range Interpretation Comments Creatinine Lvl (test code = Creatinine 0.42 0.50-1.40 Lvl) [facility] CenterRzwotkwDRWQLGKNC2518-74-26 10:15:00 Test Item Value Reference Range Interpretation Comments Sodium Lvl (test code = Sodium Lvl) 135 135-145 [facility] CenterWkuwchbFGYRWOSCM0080-69-53 10:15:00 Test Item Value Reference Range Interpretation Comments Potassium Lvl (test code = Potassium 4.2 3.5-5.1 Lvl) [facility] CenterEpqdvasBPRORSOKO2047-38-55 10:15:00 Test Item Value Reference Range Interpretation Comments Chloride Lvl (test code = Chloride Lvl) 101 95-109 [facility] CenterYhqfqgtVNPZUKHWQ2982-76-31 10:15:00 Test Item Value Reference Range Interpretation Comments CO2 (test code = CO2) 30 24-32 [facility] CenterDizediyTXOERZUKN9612-40-09 10:15:00 Test Item Value Reference Range Interpretation Comments AGAP (test code = AGAP) 8.2 10.0-20.0 [facility] CenterFdykbuxNMLUGXTOI7769-37-31 10:15:00 Test Item Value Reference Range Interpretation Comments Calcium Lvl (test code = Calcium Lvl) 8.9 8.5-10.5 [facility] CenterCvzjmfaBKXGSFRED5028-75-29 10:15:00 Test Item Value Reference Range Interpretation Comments eGFR (test code = eGFR) 116 [facility] CenterFywmsakQZWBKDNNO5072-51-52 10:15:00 Test Item Value Reference Range Interpretation Comments Magnesium Lvl (test code = Magnesium 1.9 1.8-2.4 Lvl) [facility] CenterXewcpsvWZQWPFVCZ2182-55-39 10:15:00 Test Item Value Reference Range Interpretation Comments Phosphorus (test code = Phosphorus) 4.2 2.5-4.5 [facility] CenterHqyuvsrWMKCEOEHX9609-29-78 10:15:00 Test Item Value Reference Range Interpretation Comments Ca Ion WB (test code = Ca Ion WB) 1.23 1.05-1.25 [facility] CenterNpjpjpsOBBRIUCRA5807-16-96 10:15:00 Test Item Value Reference Range Interpretation Comments Ca Ion at pH 7.4 WB (test code = Ca Ion 1.19 1.05-1.25 at pH 7.4 WB) [facility] HospitalWshhcowOAUCHISISV9135-23-42 10:15:00 Test Item Value Reference Range Interpretation Comments WBC (test code = WBC) 10.9 3.7-10.4 [facility] HospitalUafdxoeTEJREYIOSZ1892-26-40 10:15:00 Test Item Value Reference Range Interpretation Comments RBC (test code = RBC) 2.89 4.20-5.40 [facility] HospitalHljhfqfXLMEMZQJJK7414-67-70 10:15:00 Test Item Value Reference Range Interpretation Comments Hgb (test code = Hgb) 8.2 12.0-16.0 [facility] HospitalCcvxhoiFJJBLFNLCE5879-68-60 10:15:00 Test Item Value Reference Range Interpretation Comments Hct (test code = Hct) 24.5 36.0-48.0 [facility] HospitalQzrqqopQGIWIAZAKY9125-42-88 10:15:00 Test Item Value Reference Range Interpretation Comments MCV (test code = MCV) 84.7 80.0-98.0 [facility] HospitalPsqmkjxFEGXCTZFFW5367-71-91 10:15:00 Test Item Value Reference Range Interpretation Comments MCH (test code = MCH) 28.4 pg 27.0-31.0 [facility] HospitalSyjhdxdPDXSLATDOU1556-57-08 10:15:00 Test Item Value Reference Range Interpretation Comments MCHC (test code = MCHC) 33.5 32.0-36.0 [facility] CenterYmxqhwrXSAABCTGR6094-75-35 10:15:00 Test Item Value Reference Range Interpretation Comments Glucose Lvl (test code = Glucose Lvl) 141 70-99 [place] 406462-10-30 10:15:00 Test Item Value Reference Range Interpretation Comments RDW (test code = RDW) 13.5 11.5-14.5 [place] 406462-10-30 10:15:00 Test Item Value Reference Range Interpretation Comments Platelet (test code = Platelet) 459 133-450 [place] 406462-10-30 10:15:00 Test Item Value Reference Range Interpretation Comments MPV (test code = MPV) 8.1 7.4-10.4 [place] 406462-10-30 10:15:00 Test Item Value Reference Range Interpretation Comments Segs (test code = Segs) 59.9 45.0-75.0 [place] 406462-10-30 10:15:00 Test Item Value Reference Range Interpretation Comments Lymphocytes (test code = Lymphocytes) 31.3 20.0-40.0 [place] 406462-10-30 10:15:00 Test Item Value Reference Range Interpretation Comments Monocytes (test code = Monocytes) 4.9 2.0-12.0 [place] 406462-10-30 10:15:00 Test Item Value Reference Range Interpretation Comments Eosinophils (test code = 3.3 See_Comment [A utomated message] The Eosinophils) system which ge nerated this result tra nsmitted reference range : <=4.0. The reference r kyle was not used to int erpret this result as normal/abnormal . [facility] HospitalPgrboqwUGNATIGBTX7150-35-32 10:15:00 Test Item Value Reference Range Interpretation Comments Basophils (test code = 0.6 See_Comment [Aut omated message] The Basophils) system which ge nerated this result tra nsmitted reference range : <=1.0. The reference r kyle was not used to int erpret this result as normal/abnormal . [facility] HospitalKvhjrqoDTFIITMMNA1699-53-35 10:15:00 Test Item Value Reference Range Interpretation Comments Neutrophils # (test code = Neutrophils 6.5 1.5-8.1 #) [facility] HospitalGvmdqibPGTSCEFFAG9466-18-04 10:15:00 Test Item Value Reference Range Interpretation Comments Lymphocytes # (test code = Lymphocytes 3.4 1.0-5.5 #) [facility] CenterFxzwityGTJUONIIR4057-95-90 10:15:00 Test Item Value Reference Range Interpretation Comments BUN (test code = BUN) 12 7-22 [facility] HospitalQesgyveVLYYWAVVAZ4698-04-27 10:15:00 Test Item Value Reference Range Interpretation Comments Monocytes # (test code 0.5 See_Comment [Aut omated message] The = Monocytes #) system which generated this result tra nsmitted reference range : <=0.8. The reference r kyle was not used to int erpret this result as normal/abnormal . [facility] HospitalQnnpibkKLSVCRZSDF4877-90-86 10:15:00 Test Item Value Reference Range Interpretation Comments Eosinophils # (test code 0.4 See_Comment [A utomated message] The = Eosinophils #) system whic h generated this result tra nsmitted reference range : <=0.5. The reference r kyle was not used to int erpret this result as normal/abnormal . [facility] HospitalCdjctfiMKKLWEPMLA7260-56-17 10:15:00 Test Item Value Reference Range Interpretation Comments Basophils # (test code 0.1 See_Comment [Aut omated message] The = Basophils #) system which generated this result tra nsmitted reference range : <=0.2. The reference r kyle was not used to int erpret this result as normal/abnormal . [facility] CenterHikefgdDETWJYJOB0367-45-11 10:15:00 Test Item Value Reference Range Interpretation Comments Creatinine Lvl (test code = Creatinine 0.42 0.50-1.40 Lvl) [facility] CenterIlkfdwhNPSQPKWMU3485-58-96 10:15:00 Test Item Value Reference Range Interpretation Comments Sodium Lvl (test code = Sodium Lvl) 135 135-145 [facility] CenterWqbncjgRUJYAIFZJ0640-83-79 10:15:00 Test Item Value Reference Range Interpretation Comments Potassium Lvl (test code = Potassium 4.2 3.5-5.1 Lvl) [facility] CenterNwnjvioBAXDSBPWH9673-45-99 10:15:00 Test Item Value Reference Range Interpretation Comments Chloride Lvl (test code = Chloride Lvl) 101 95-109 [place] 223672-10-30 10:15:00 Test Item Value Reference Range Interpretation Comments CO2 (test code = CO2) 30 24-32 [place] 223672-10-30 10:15:00 Test Item Value Reference Range Interpretation Comments AGAP (test code = AGAP) 8.2 10.0-20.0 [facility] CenterSlzuszaEQKLCIHRF4207-43-49 10:15:00 Test Item Value Reference Range Interpretation Comments Calcium Lvl (test code = Calcium Lvl) 8.9 8.5-10.5 [facility] CenterZygnvinHXZUGPPXL6455-96-98 10:15:00 Test Item Value Reference Range Interpretation Comments eGFR (test code = eGFR) 116 [facility] CenterIrovlzkUEAEFBFAH8053-35-27 10:15:00 Test Item Value Reference Range Interpretation Comments Magnesium Lvl (test code = Magnesium 1.9 1.8-2.4 Lvl) [facility] CenterXgasgaeACTNYEQSF7132-02-37 10:15:00 Test Item Value Reference Range Interpretation Comments Phosphorus (test code = Phosphorus) 4.2 2.5-4.5 [facility] CenterQckkvkrPRGDERDLR4917-20-12 10:15:00 Test Item Value Reference Range Interpretation Comments Ca Ion WB (test code = Ca Ion WB) 1.23 1.05-1.25 [facility] CenterCabrmqhQXEXMWPZH9383-92-09 10:15:00 Test Item Value Reference Range Interpretation Comments Ca Ion at pH 7.4 WB (test code = Ca Ion 1.19 1.05-1.25 at pH 7.4 WB) [facility]GpkfrahREWDPRRDNH6243-60-60 10:15:00 Test Item Value Reference Range Interpretation Comments WBC (test code = WBC) 10.9 3.7-10.4 [facility] HospitalVexvlbnZUHGENQSEE7691-04-35 10:15:00 Test Item Value Reference Range Interpretation Comments RBC (test code = RBC) 2.89 4.20-5.40 [facility] HospitalZyaejqsHTLJQTEZDB9410-04-76 10:15:00 Test Item Value Reference Range Interpretation Comments Hgb (test code = Hgb) 8.2 12.0-16.0 [place] 406462-10-30 10:15:00 Test Item Value Reference Range Interpretation Comments Hct (test code = Hct) 24.5 36.0-48.0 [facility] HospitalHzsiciiFNXYTJHXNV9801-59-89 10:15:00 Test Item Value Reference Range Interpretation Comments MCV (test code = MCV) 84.7 80.0-98.0 [place] 406462-10-30 10:15:00 Test Item Value Reference Range Interpretation Comments MCH (test code = MCH) 28.4 pg 27.0-31.0 [facility] HospitalJpvomnuWNRMSFSRAO0443-96-29 10:15:00 Test Item Value Reference Range Interpretation Comments MCHC (test code = MCHC) 33.5 32.0-36.0 [facility] HospitalUubfulrAIZJQGUWSW2647-49-91 10:15:00 Test Item Value Reference Range Interpretation Comments RDW (test code = RDW) 13.5 11.5-14.5 [place] 406462-10-30 10:15:00 Test Item Value Reference Range Interpretation Comments Platelet (test code = Platelet) 459 133-450 [facility] HospitalYkxzclxRDUYBORCOI1667-60-79 10:15:00 Test Item Value Reference Range Interpretation Comments MPV (test code = MPV) 8.1 7.4-10.4 [facility] HospitalPlgobjuLCUMUXWSEY4865-83-75 10:15:00 Test Item Value Reference Range Interpretation Comments Segs (test code = Segs) 59.9 45.0-75.0 [facility] HospitalXkgxzowNRDITUBVPH3033-78-47 10:15:00 Test Item Value Reference Range Interpretation Comments Lymphocytes (test code = Lymphocytes) 31.3 20.0-40.0 [place] 406462-10-30 10:15:00 Test Item Value Reference Range Interpretation Comments Monocytes (test code = Monocytes) 4.9 2.0-12.0 [facility] HospitalCmgwaqwEJITHHZYTO1183-22-75 10:15:00 Test Item Value Reference Range Interpretation Comments Eosinophils (test code = 3.3 See_Comment [A utomated message] The Eosinophils) system which ge nerated this result tra nsmitted reference range : <=4.0. The reference r kyle was not used to int erpret this result as normal/abnormal . [facility] HospitalOxcxlenOIMZLVKIFJ7893-44-49 10:15:00 Test Item Value Reference Range Interpretation Comments Basophils (test code = 0.6 See_Comment [Aut omated message] The Basophils) system which ge nerated this result tra nsmitted reference range : <=1.0. The reference r kyle was not used to int erpret this result as normal/abnormal . [place] 406462-10-30 10:15:00 Test Item Value Reference Range Interpretation Comments Neutrophils # (test code = Neutrophils 6.5 1.5-8.1 #) [facility] HospitalIjagmkrDBNPCYGUJT4021-05-37 10:15:00 Test Item Value Reference Range Interpretation Comments Lymphocytes # (test code = Lymphocytes 3.4 1.0-5.5 #) [facility] HospitalLlsyyvsNNEXONSVQN9168-66-60 10:15:00 Test Item Value Reference Range Interpretation Comments Monocytes # (test code 0.5 See_Comment [Aut omated message] The = Monocytes #) system which generated this result tra nsmitted reference range : <=0.8. The reference r kyle was not used to int erpret this result as normal/abnormal . [facility] HospitalEmiwiqaYVNEDRXKIX0830-90-89 10:15:00 Test Item Value Reference Range Interpretation Comments Eosinophils # (test code 0.4 See_Comment [A utomated message] The = Eosinophils #) system whic h generated this result tra nsmitted reference range : <=0.5. The reference r kyle was not used to int erpret this result as normal/abnormal . [facility] HospitalBinxfbbUJQZYGPTFV4717-96-42 10:15:00 Test Item Value Reference Range Interpretation Comments Basophils # (test code 0.1 See_Comment [Aut omated message] The = Basophils #) system which generated this result tra nsmitted reference range : <=0.2. The reference r kyle was not used to int erpret this result as normal/abnormal . [facility] CenterEbnjrpbLLWHBLESL7495-55-90 10:15:00 Test Item Value Reference Range Interpretation Comments Glucose Lvl (test code = Glucose Lvl) 141 70-99 [facility] CenterMzgwycsAAZYABDWY1619-79-16 10:15:00 Test Item Value Reference Range Interpretation Comments BUN (test code = BUN) 12 7-22 [facility] CenterPtwszkaIZKMTBEPI8963-31-86 10:15:00 Test Item Value Reference Range Interpretation Comments Creatinine Lvl (test code = Creatinine 0.42 0.50-1.40 Lvl) [facility] CenterJpcwmzxOZLUUQXYR9697-26-02 10:15:00 Test Item Value Reference Range Interpretation Comments Sodium Lvl (test code = Sodium Lvl) 135 135-145 [facility] CenterNwmdfksLVHZFIUTF2731-77-77 10:15:00 Test Item Value Reference Range Interpretation Comments Potassium Lvl (test code = Potassium 4.2 3.5-5.1 Lvl) [facility] CenterEyjooaoLTIEVIGRN2107-25-28 10:15:00 Test Item Value Reference Range Interpretation Comments Chloride Lvl (test code = Chloride Lvl) 101 95-109 [facility] CenterAipxeomGVPTIWZEW8219-42-03 10:15:00 Test Item Value Reference Range Interpretation Comments CO2 (test code = CO2) 30 24-32 [facility] CenterEzwthtkVUVTQICZN7240-39-40 10:15:00 Test Item Value Reference Range Interpretation Comments AGAP (test code = AGAP) 8.2 10.0-20.0 [facility] CenterCxxmjcuBAEDKDBHG1468-34-46 10:15:00 Test Item Value Reference Range Interpretation Comments Calcium Lvl (test code = Calcium Lvl) 8.9 8.5-10.5 [facility] CenterLlpxkbhQFPUEKEGJ2550-58-66 10:15:00 Test Item Value Reference Range Interpretation Comments eGFR (test code = eGFR) 116 [facility] CenterPejivuyIVHFKRYXW1456-99-19 10:15:00 Test Item Value Reference Range Interpretation Comments Magnesium Lvl (test code = Magnesium 1.9 1.8-2.4 Lvl) [facility] CenterLpsgknmMLLFQFTXF9624-90-46 10:15:00 Test Item Value Reference Range Interpretation Comments Phosphorus (test code = Phosphorus) 4.2 2.5-4.5 [facility] CenterMzqjqjvVYQAXPPTM1601-21-85 10:15:00 Test Item Value Reference Range Interpretation Comments Ca Ion WB (test code = Ca Ion WB) 1.23 1.05-1.25 [facility] CenterCjycckpWABMTLYJV4747-12-33 10:15:00 Test Item Value Reference Range Interpretation Comments Ca Ion at pH 7.4 WB (test code = Ca Ion 1.19 1.05-1.25 at pH 7.4 WB) [facility] HospitalHvlnavuIZTQPHPAGP1926-97-20 10:15:00 Test Item Value Reference Range Interpretation Comments WBC (test code = WBC) 10.9 3.7-10.4 [facility] HospitalDbebijcMLKFGLMHCR4298-19-32 10:15:00 Test Item Value Reference Range Interpretation Comments RBC (test code = RBC) 2.89 4.20-5.40 [facility] HospitalQbobonqENWPLONOZL4971-75-12 10:15:00 Test Item Value Reference Range Interpretation Comments Hgb (test code = Hgb) 8.2 12.0-16.0 [facility] HospitalHbbazceWASUCKUXPO8166-51-69 10:15:00 Test Item Value Reference Range Interpretation Comments Hct (test code = Hct) 24.5 36.0-48.0 [facility] HospitalAgqdrhzLKLUECZDMH9433-87-12 10:15:00 Test Item Value Reference Range Interpretation Comments MCV (test code = MCV) 84.7 80.0-98.0 [facility] HospitalPgsdiznFLKRSGWKUL7343-72-18 10:15:00 Test Item Value Reference Range Interpretation Comments MCH (test code = MCH) 28.4 pg 27.0-31.0 [facility] HospitalDxwxahqLKYTTBNRIQ6404-56-06 10:15:00 Test Item Value Reference Range Interpretation Comments MCHC (test code = MCHC) 33.5 32.0-36.0 [facility] HospitalWthtpwrNPAZVEDOOY0738-88-69 10:15:00 Test Item Value Reference Range Interpretation Comments RDW (test code = RDW) 13.5 11.5-14.5 [facility] HospitalFjdmhfuUNJKOGHEZY1733-16-79 10:15:00 Test Item Value Reference Range Interpretation Comments Platelet (test code = Platelet) 459 133-450 [facility] HospitalAmyltobBOATNQLYEY7478-91-91 10:15:00 Test Item Value Reference Range Interpretation Comments MPV (test code = MPV) 8.1 7.4-10.4 [facility] HospitalFbtigrsWJGGCZJAPT9264-01-29 10:15:00 Test Item Value Reference Range Interpretation Comments Segs (test code = Segs) 59.9 45.0-75.0 [facility] HospitalDpngchaGEWYSUUVCM8220-47-33 10:15:00 Test Item Value Reference Range Interpretation Comments Lymphocytes (test code = Lymphocytes) 31.3 20.0-40.0 [place] 406462-10-30 10:15:00 Test Item Value Reference Range Interpretation Comments Monocytes (test code = Monocytes) 4.9 2.0-12.0 [place] 406462-10-30 10:15:00 Test Item Value Reference Range Interpretation Comments Eosinophils (test code = 3.3 See_Comment [A utomated message] The Eosinophils) system which ge nerated this result tra nsmitted reference range : <=4.0. The reference r kyle was not used to int erpret this result as normal/abnormal . [facility] HospitalGtbfoexWXSCFOUHVY4027-80-79 10:15:00 Test Item Value Reference Range Interpretation Comments Basophils (test code = 0.6 See_Comment [Aut omated message] The Basophils) system which ge nerated this result tra nsmitted reference range : <=1.0. The reference r kyle was not used to int erpret this result as normal/abnormal . [facility] HospitalIczcsvjCUCQWFXMAP3035-22-59 10:15:00 Test Item Value Reference Range Interpretation Comments Neutrophils # (test code = Neutrophils 6.5 1.5-8.1 #) [facility] HospitalFefourqZRQUDKGGQR9358-62-16 10:15:00 Test Item Value Reference Range Interpretation Comments Lymphocytes # (test code = Lymphocytes 3.4 1.0-5.5 #) [facility] HospitalVxatzbyBZJSRKTMWC6462-08-59 10:15:00 Test Item Value Reference Range Interpretation Comments Monocytes # (test code 0.5 See_Comment [Aut omated message] The = Monocytes #) system which generated this result tra nsmitted reference range : <=0.8. The reference r kyle was not used to int erpret this result as normal/abnormal . [facility] HospitalYnlajmrJHLMBNIMZN1525-36-06 10:15:00 Test Item Value Reference Range Interpretation Comments Eosinophils # (test code 0.4 See_Comment [A utomated message] The = Eosinophils #) system whic h generated this result tra nsmitted reference range : <=0.5. The reference r kyle was not used to int erpret this result as normal/abnormal . [facility] HospitalBoimjfmMGETAZGWBU1249-32-38 10:15:00 Test Item Value Reference Range Interpretation Comments Basophils # (test code 0.1 See_Comment [Aut omated message] The = Basophils #) system which generated this result tra nsmitted reference range : <=0.2. The reference r kyle was not used to int erpret this result as normal/abnormal . [facility] CenterRahpwfvMFBPBHJQI9910-10-03 10:15:00 Test Item Value Reference Range Interpretation Comments Glucose Lvl (test code = Glucose Lvl) 141 70-99 [facility] CenterIjmmrimGCQJFVIMM1010-89-20 10:15:00 Test Item Value Reference Range Interpretation Comments BUN (test code = BUN) 12 7-22 [facility] CenterLxguumbSITJOPOSV2907-35-30 10:15:00 Test Item Value Reference Range Interpretation Comments Creatinine Lvl (test code = Creatinine 0.42 0.50-1.40 Lvl) [facility] CenterPvnbbpnPVUHADSRK3808-78-45 10:15:00 Test Item Value Reference Range Interpretation Comments Sodium Lvl (test code = Sodium Lvl) 135 135-145 [facility] CenterWcysmelMFKCOGXRA9816-42-99 10:15:00 Test Item Value Reference Range Interpretation Comments Potassium Lvl (test code = Potassium 4.2 3.5-5.1 Lvl) [facility] CenterEectocdWPRRSFDZT9976-78-17 10:15:00 Test Item Value Reference Range Interpretation Comments Chloride Lvl (test code = Chloride Lvl) 101 95-109 [facility] CenterJumhksjARSPEYXUO5884-48-71 10:15:00 Test Item Value Reference Range Interpretation Comments CO2 (test code = CO2) 30 24-32 [facility] CenterCxhwnygIOVHFJMWY1026-85-56 10:15:00 Test Item Value Reference Range Interpretation Comments AGAP (test code = AGAP) 8.2 10.0-20.0 [facility] CenterKxetdjoIVDTGXPGB3674-45-31 10:15:00 Test Item Value Reference Range Interpretation Comments Calcium Lvl (test code = Calcium Lvl) 8.9 8.5-10.5 [facility] CenterIxngzvpNBEWHIDKO1386-17-37 10:15:00 Test Item Value Reference Range Interpretation Comments eGFR (test code = eGFR) 116 [facility] CenterJmfpyppNQZGXMNZG8808-73-86 10:15:00 Test Item Value Reference Range Interpretation Comments Magnesium Lvl (test code = Magnesium 1.9 1.8-2.4 Lvl) [facility] CenterRgeikqqAEDLITTAM2061-31-80 10:15:00 Test Item Value Reference Range Interpretation Comments Phosphorus (test code = Phosphorus) 4.2 2.5-4.5 [facility] CenterPaplzjdAFATYSWNV2604-27-98 10:15:00 Test Item Value Reference Range Interpretation Comments Ca Ion WB (test code = Ca Ion WB) 1.23 1.05-1.25 [facility] CenterSmsdtdjNTZNWXDMW3833-62-66 10:15:00 Test Item Value Reference Range Interpretation Comments Ca Ion at pH 7.4 WB (test code = Ca Ion 1.19 1.05-1.25 at pH 7.4 WB) [facility] HospitalPjajccmOEGXODKNBI5497-44-33 10:15:00 Test Item Value Reference Range Interpretation Comments WBC (test code = WBC) 10.9 3.7-10.4 [facility] HospitalSsmfwpaSHQNPGWUPQ0918-41-61 10:15:00 Test Item Value Reference Range Interpretation Comments RBC (test code = RBC) 2.89 4.20-5.40 [facility] HospitalCdaltpjPHVGBNKMTD3328-79-10 10:15:00 Test Item Value Reference Range Interpretation Comments Hgb (test code = Hgb) 8.2 12.0-16.0 [facility] HospitalQopcbuhXAYSLLKBJH2830-24-57 10:15:00 Test Item Value Reference Range Interpretation Comments Hct (test code = Hct) 24.5 36.0-48.0 [facility] HospitalHwnipkwDCLPKNDUAN7631-60-43 10:15:00 Test Item Value Reference Range Interpretation Comments MCV (test code = MCV) 84.7 80.0-98.0 [facility] HospitalLtopyjsPNCXIWMBEG4317-30-71 10:15:00 Test Item Value Reference Range Interpretation Comments MCH (test code = MCH) 28.4 pg 27.0-31.0 [facility] HospitalFdqbxfeOLAIUUINHJ7978-39-47 10:15:00 Test Item Value Reference Range Interpretation Comments MCHC (test code = MCHC) 33.5 32.0-36.0 [facility] HospitalSksehkzYHDVEPROPE6399-17-81 10:15:00 Test Item Value Reference Range Interpretation Comments RDW (test code = RDW) 13.5 11.5-14.5 [facility] HospitalRiqwbgdAGXCXOJCPF8250-28-86 10:15:00 Test Item Value Reference Range Interpretation Comments Platelet (test code = Platelet) 459 173-450 [facility] HospitalPcdgduhTBGYCSTUZE2707-83-75 10:15:00 Test Item Value Reference Range Interpretation Comments MPV (test code = MPV) 8.1 7.4-10.4 [facility] HospitalLxkepouSVNGWSNJGR7778-04-85 10:15:00 Test Item Value Reference Range Interpretation Comments Segs (test code = Segs) 59.9 45.0-75.0 [facility] HospitalCdbcrokAKXHNFWMBZ7936-39-90 10:15:00 Test Item Value Reference Range Interpretation Comments Lymphocytes (test code = Lymphocytes) 31.3 20.0-40.0 [facility] HospitalHgddeutLLJEWAXCTT9575-75-19 10:15:00 Test Item Value Reference Range Interpretation Comments Monocytes (test code = Monocytes) 4.9 2.0-12.0 [place] 406462-10-30 10:15:00 Test Item Value Reference Range Interpretation Comments Eosinophils (test code = 3.3 See_Comment [A utomated message] The Eosinophils) system which ge nerated this result tra nsmitted reference range : <=4.0. The reference r kyle was not used to int erpret this result as normal/abnormal . [facility] HospitalOposeqiHCJTRASSZM6598-87-77 10:15:00 Test Item Value Reference Range Interpretation Comments Basophils (test code = 0.6 See_Comment [Aut omated message] The Basophils) system which ge nerated this result tra nsmitted reference range : <=1.0. The reference r kyle was not used to int erpret this result as normal/abnormal . [facility] HospitalBsmuccwAODXJMJRQJ5350-67-88 10:15:00 Test Item Value Reference Range Interpretation Comments Neutrophils # (test code = Neutrophils 6.5 1.5-8.1 #) [facility] HospitalAftapzpTPIAJEEVIA4922-94-09 10:15:00 Test Item Value Reference Range Interpretation Comments Lymphocytes # (test code = Lymphocytes 3.4 1.0-5.5 #) [facility] HospitalDbczdqoXGUIMWRIKA5202-33-40 10:15:00 Test Item Value Reference Range Interpretation Comments Monocytes # (test code 0.5 See_Comment [Aut omated message] The = Monocytes #) system which generated this result tra nsmitted reference range : <=0.8. The reference r kyle was not used to int erpret this result as normal/abnormal . [facility] HospitalIgnsgpcCFYKGCRCEO2097-44-18 10:15:00 Test Item Value Reference Range Interpretation Comments Eosinophils # (test code 0.4 See_Comment [A utomated message] The = Eosinophils #) system whic h generated this result tra nsmitted reference range : <=0.5. The reference r kyle was not used to int erpret this result as normal/abnormal . [facility] HospitalZxwjapxTGKSPHYBNZ7396-05-51 10:15:00 Test Item Value Reference Range Interpretation Comments Basophils # (test code 0.1 See_Comment [Aut omated message] The = Basophils #) system which generated this result tra nsmitted reference range : <=0.2. The reference r kyle was not used to int erpret this result as normal/abnormal . [facility] CenterQmqhjadODVAGBHJB0139-85-78 10:15:00 Test Item Value Reference Range Interpretation Comments Glucose Lvl (test code = Glucose Lvl) 141 70-99 [facility] CenterUxtwmuuWEZAVBNKA4260-54-02 10:15:00 Test Item Value Reference Range Interpretation Comments BUN (test code = BUN) 12 7-22 [facility] CenterDwwgwrlSAWXYQHSL7427-32-77 10:15:00 Test Item Value Reference Range Interpretation Comments Creatinine Lvl (test code = Creatinine 0.42 0.50-1.40 Lvl) [facility] CenterCpmmdvrXEKHAPWIY8848-03-78 10:15:00 Test Item Value Reference Range Interpretation Comments Sodium Lvl (test code = Sodium Lvl) 135 135-145 [facility] CenterUklfigzHTWDABRUQ4790-56-39 10:15:00 Test Item Value Reference Range Interpretation Comments Potassium Lvl (test code = Potassium 4.2 3.5-5.1 Lvl) [facility] CenterPwfydxsOEUHHBWHX4617-61-35 10:15:00 Test Item Value Reference Range Interpretation Comments Chloride Lvl (test code = Chloride Lvl) 101 95-109 [facility] CenterOqowmlzKHGLQMIXX1808-78-54 10:15:00 Test Item Value Reference Range Interpretation Comments CO2 (test code = CO2) 30 24-32 [facility] CenterQfcvmzuQCVNYQTYC7995-85-58 10:15:00 Test Item Value Reference Range Interpretation Comments AGAP (test code = AGAP) 8.2 10.0-20.0 [facility] CenterUjeubiwROUZAAZNU3293-08-48 10:15:00 Test Item Value Reference Range Interpretation Comments Calcium Lvl (test code = Calcium Lvl) 8.9 8.5-10.5 [facility] CenterIoyzmnhVDWHVDMVI6405-55-78 10:15:00 Test Item Value Reference Range Interpretation Comments eGFR (test code = eGFR) 116 [facility] CenterBpdkydzILDOFTIIN3466-56-56 10:15:00 Test Item Value Reference Range Interpretation Comments Magnesium Lvl (test code = Magnesium 1.9 1.8-2.4 Lvl) [facility] CenterWsowxkbCCHCZWORW7095-51-87 10:15:00 Test Item Value Reference Range Interpretation Comments Phosphorus (test code = Phosphorus) 4.2 2.5-4.5 [facility] CenterIateyilIMQNJEKQK6173-22-51 10:15:00 Test Item Value Reference Range Interpretation Comments Ca Ion WB (test code = Ca Ion WB) 1.23 1.05-1.25 [facility] CenterOznlpghAUGPCYRFR8630-54-74 10:15:00 Test Item Value Reference Range Interpretation Comments Ca Ion at pH 7.4 WB (test code = Ca Ion 1.19 1.05-1.25 at pH 7.4 WB) [facility] HospitalOuvfexhPZKBHTCUVH4667-19-13 10:15:00 Test Item Value Reference Range Interpretation Comments WBC (test code = WBC) 10.9 3.7-10.4 [facility] HospitalEdjirraYDBCTLOCBO0099-56-67 10:15:00 Test Item Value Reference Range Interpretation Comments RBC (test code = RBC) 2.89 4.20-5.40 [facility] HospitalZgfaqcoAOZVAKDPYW3580-49-92 10:15:00 Test Item Value Reference Range Interpretation Comments Hgb (test code = Hgb) 8.2 12.0-16.0 [place] 406462-10-30 10:15:00 Test Item Value Reference Range Interpretation Comments Hct (test code = Hct) 24.5 36.0-48.0 [facility] HospitalOxqzhreRIDQQTUWJY5767-04-74 10:15:00 Test Item Value Reference Range Interpretation Comments MCV (test code = MCV) 84.7 80.0-98.0 [facility] HospitalBjmmqwhDFTSAZCPMU0949-90-05 10:15:00 Test Item Value Reference Range Interpretation Comments MCH (test code = MCH) 28.4 pg 27.0-31.0 [facility] HospitalBhvvscvIHMWJXQCWY6790-00-42 10:15:00 Test Item Value Reference Range Interpretation Comments MCHC (test code = MCHC) 33.5 32.0-36.0 [facility] HospitalMuboloiBMCUZJUSFY5532-28-15 10:15:00 Test Item Value Reference Range Interpretation Comments RDW (test code = RDW) 13.5 11.5-14.5 [facility] HospitalDdrtbmqFAMBCYSCHQ7615-39-41 10:15:00 Test Item Value Reference Range Interpretation Comments Platelet (test code = Platelet) 459 752-450 [facility] HospitalLzkwfvsQBTWDXJPBN5083-33-73 10:15:00 Test Item Value Reference Range Interpretation Comments MPV (test code = MPV) 8.1 7.4-10.4 [facility] HospitalWwlipcdGZCVYVENFI6103-69-60 10:15:00 Test Item Value Reference Range Interpretation Comments Segs (test code = Segs) 59.9 45.0-75.0 [facility] HospitalMyxwxucQYOXHJFLPR0328-51-03 10:15:00 Test Item Value Reference Range Interpretation Comments Lymphocytes (test code = Lymphocytes) 31.3 20.0-40.0 [facility] HospitalEfopnzkHUTOUVBCAM6437-19-67 10:15:00 Test Item Value Reference Range Interpretation Comments Monocytes (test code = Monocytes) 4.9 2.0-12.0 [facility] HospitalHvkqpxrHVJNFPJGGC4169-13-53 10:15:00 Test Item Value Reference Range Interpretation Comments Eosinophils (test code = 3.3 See_Comment [A utomated message] The Eosinophils) system which ge nerated this result tra nsmitted reference range : <=4.0. The reference r kyle was not used to int erpret this result as normal/abnormal . [facility] HospitalTbsefecTKGWMMIZUT5727-08-94 10:15:00 Test Item Value Reference Range Interpretation Comments Basophils (test code = 0.6 See_Comment [Aut omated message] The Basophils) system which ge nerated this result tra nsmitted reference range : <=1.0. The reference r kyle was not used to int erpret this result as normal/abnormal . [facility] HospitalTmdijfqPLPAERFMCN3711-86-87 10:15:00 Test Item Value Reference Range Interpretation Comments Neutrophils # (test code = Neutrophils 6.5 1.5-8.1 #) [facility] HospitalHdgidsbOCRNOOCEVP6968-10-30 10:15:00 Test Item Value Reference Range Interpretation Comments Lymphocytes # (test code = Lymphocytes 3.4 1.0-5.5 #) [facility] HospitalOpjmewvGPOCMKLGSU0314-37-02 10:15:00 Test Item Value Reference Range Interpretation Comments Monocytes # (test code 0.5 See_Comment [Aut omated message] The = Monocytes #) system which generated this result tra nsmitted reference range : <=0.8. The reference r kyle was not used to int erpret this result as normal/abnormal . [facility] HospitalTdnweeeFJUZABKSTQ6536-95-46 10:15:00 Test Item Value Reference Range Interpretation Comments Eosinophils # (test code 0.4 See_Comment [A utomated message] The = Eosinophils #) system whic h generated this result tra nsmitted reference range : <=0.5. The reference r kyle was not used to int erpret this result as normal/abnormal . [place] 406462-10-30 10:15:00 Test Item Value Reference Range Interpretation Comments Basophils # (test code 0.1 See_Comment [Aut omated message] The = Basophils #) system which generated this result tra nsmitted reference range : <=0.2. The reference r kyle was not used to int erpret this result as normal/abnormal . [facility]VlwlgeqLOQJVWFVI9047-39-92 10:15:00 Test Item Value Reference Range Interpretation Comments Glucose Lvl (test code = Glucose Lvl) 141 70-99 [facility] CenterWdoarypZYWOAUKVK7560-58-66 10:15:00 Test Item Value Reference Range Interpretation Comments BUN (test code = BUN) 12 7-22 [facility] CenterPhbbqcgPCJIRWBNH1423-72-15 10:15:00 Test Item Value Reference Range Interpretation Comments Creatinine Lvl (test code = Creatinine 0.42 0.50-1.40 Lvl) [facility] CenterUnfhvcrQTNMPSXFR0414-29-12 10:15:00 Test Item Value Reference Range Interpretation Comments Sodium Lvl (test code = Sodium Lvl) 135 135-145 [facility] CenterGlsdkyaLTNGDAYAM4081-95-58 10:15:00 Test Item Value Reference Range Interpretation Comments Potassium Lvl (test code = Potassium 4.2 3.5-5.1 Lvl) [facility] CenterJzwljxyAOOIKIKYK6176-53-24 10:15:00 Test Item Value Reference Range Interpretation Comments Chloride Lvl (test code = Chloride Lvl) 101 95-109 [facility] CenterSfodvmnXNWGKRDAN1690-32-44 10:15:00 Test Item Value Reference Range Interpretation Comments CO2 (test code = CO2) 30 24-32 [facility] CenterRojoibxFVHAIMMOG8977-85-98 10:15:00 Test Item Value Reference Range Interpretation Comments AGAP (test code = AGAP) 8.2 10.0-20.0 [place] 223672-10-30 10:15:00 Test Item Value Reference Range Interpretation Comments Calcium Lvl (test code = Calcium Lvl) 8.9 8.5-10.5 [facility] CenterLrdhlwbVKESXARZO0585-42-92 10:15:00 Test Item Value Reference Range Interpretation Comments eGFR (test code = eGFR) 116 [facility] CenterAmulbwwXGOSJEVJZ7794-56-64 10:15:00 Test Item Value Reference Range Interpretation Comments Magnesium Lvl (test code = Magnesium 1.9 1.8-2.4 Lvl) [facility] CenterDbaajavFVLVQLVCP1164-49-36 10:15:00 Test Item Value Reference Range Interpretation Comments Phosphorus (test code = Phosphorus) 4.2 2.5-4.5 [facility] CenterPgyirppKNUSSPIKD1138-96-32 10:15:00 Test Item Value Reference Range Interpretation Comments Ca Ion WB (test code = Ca Ion WB) 1.23 1.05-1.25 [facility] CenterVgjcofiADBUUECPS0983-90-92 10:15:00 Test Item Value Reference Range Interpretation Comments Ca Ion at pH 7.4 WB (test code = Ca Ion 1.19 1.05-1.25 at pH 7.4 WB) [facility]NoxmtyaXDQOMIGPGY7779-62-82 10:15:00 Test Item Value Reference Range Interpretation Comments WBC (test code = WBC) 10.9 3.7-10.4 [facility] HospitalEmlwpaaENFWSYTJOH3494-57-15 10:15:00 Test Item Value Reference Range Interpretation Comments RBC (test code = RBC) 2.89 4.20-5.40 [facility] HospitalGibxallCPWADGCMKB9794-31-69 10:15:00 Test Item Value Reference Range Interpretation Comments Hgb (test code = Hgb) 8.2 12.0-16.0 [facility] HospitalNqwvofwAZWZNKOELG8925-09-57 10:15:00 Test Item Value Reference Range Interpretation Comments Hct (test code = Hct) 24.5 36.0-48.0 [facility] HospitalAtcstbdSRJRCSBRNR9192-86-80 10:15:00 Test Item Value Reference Range Interpretation Comments MCV (test code = MCV) 84.7 80.0-98.0 [facility] HospitalBwyzpkyNVOVYBWQWA8746-06-75 10:15:00 Test Item Value Reference Range Interpretation Comments MCH (test code = MCH) 28.4 pg 27.0-31.0 [facility] HospitalItzujzuVLZZULVBIH4975-64-77 10:15:00 Test Item Value Reference Range Interpretation Comments MCHC (test code = MCHC) 33.5 32.0-36.0 [facility] HospitalAgvpqqsYLZGJTLOOB1705-36-78 10:15:00 Test Item Value Reference Range Interpretation Comments RDW (test code = RDW) 13.5 11.5-14.5 [facility] HospitalLsxhgzgTBYYAHXZXH4849-70-63 10:15:00 Test Item Value Reference Range Interpretation Comments Platelet (test code = Platelet) 459 133450 [facility] HospitalTiilslsJUBMKXYTOI0535-35-12 10:15:00 Test Item Value Reference Range Interpretation Comments MPV (test code = MPV) 8.1 7.4-10.4 [facility] HospitalQespvzjMGENKHIUWJ7606-16-02 10:15:00 Test Item Value Reference Range Interpretation Comments Segs (test code = Segs) 59.9 45.0-75.0 [facility] HospitalKwnbjzpFUEDKHUINR1580-28-40 10:15:00 Test Item Value Reference Range Interpretation Comments Lymphocytes (test code = Lymphocytes) 31.3 20.0-40.0 [place] 406462-10-30 10:15:00 Test Item Value Reference Range Interpretation Comments Monocytes (test code = Monocytes) 4.9 2.0-12.0 [facility] HospitalVwnkhbxAEEHVMBCZD6425-34-90 10:15:00 Test Item Value Reference Range Interpretation Comments Eosinophils (test code = 3.3 See_Comment [A utomated message] The Eosinophils) system which ge nerated this result tra nsmitted reference range : <=4.0. The reference r kyle was not used to int erpret this result as normal/abnormal . [facility] HospitalIczinvuJCYSYBKUTF6671-19-60 10:15:00 Test Item Value Reference Range Interpretation Comments Basophils (test code = 0.6 See_Comment [Aut omated message] The Basophils) system which ge nerated this result tra nsmitted reference range : <=1.0. The reference r kyle was not used to int erpret this result as normal/abnormal . [facility] HospitalMzkhqnmOBWKUZXFRA3574-45-69 10:15:00 Test Item Value Reference Range Interpretation Comments Neutrophils # (test code = Neutrophils 6.5 1.5-8.1 #) [facility] HospitalRadplzmXVIQTSWDMT5100-79-75 10:15:00 Test Item Value Reference Range Interpretation Comments Lymphocytes # (test code = Lymphocytes 3.4 1.0-5.5 #) [facility] HospitalSlokrjfYDYQBVRUWL7155-13-69 10:15:00 Test Item Value Reference Range Interpretation Comments Monocytes # (test code 0.5 See_Comment [Aut omated message] The = Monocytes #) system which generated this result tra nsmitted reference range : <=0.8. The reference r kyle was not used to int erpret this result as normal/abnormal . [facility] HospitalYttjkzjYCQHAAQEUR9314-77-19 10:15:00 Test Item Value Reference Range Interpretation Comments Eosinophils # (test code 0.4 See_Comment [A utomated message] The = Eosinophils #) system whic h generated this result tra nsmitted reference range : <=0.5. The reference r kyle was not used to int erpret this result as normal/abnormal . [facility] HospitalHfvnavkYBNVQNMSHR9623-86-31 10:15:00 Test Item Value Reference Range Interpretation Comments Basophils # (test code 0.1 See_Comment [Aut omated message] The = Basophils #) system which generated this result tra nsmitted reference range : <=0.2. The reference r kyle was not used to int erpret this result as normal/abnormal . [facility] CenterTguligmYJKXKPENG9988-03-79 10:15:00 Test Item Value Reference Range Interpretation Comments Glucose Lvl (test code = Glucose Lvl) 141 70-99 [facility] CenterMpssdvaCYCFOTCDG2912-31-20 10:15:00 Test Item Value Reference Range Interpretation Comments BUN (test code = BUN) 12 7-22 [facility] CenterDpukfxsGAYMHQFPY2662-32-86 10:15:00 Test Item Value Reference Range Interpretation Comments Creatinine Lvl (test code = Creatinine 0.42 0.50-1.40 Lvl) [facility] CenterFlzmskqCPAICLMOI9002-62-82 10:15:00 Test Item Value Reference Range Interpretation Comments Sodium Lvl (test code = Sodium Lvl) 135 135-145 [facility] CenterZsnnxvqNMSZJSTCT4708-40-60 10:15:00 Test Item Value Reference Range Interpretation Comments Potassium Lvl (test code = Potassium 4.2 3.5-5.1 Lvl) [facility] CenterEvbjeleHETRORWBG5610-25-18 10:15:00 Test Item Value Reference Range Interpretation Comments Chloride Lvl (test code = Chloride Lvl) 101 95-109 [facility] CenterSawseofDZNBSXGRA3358-48-46 10:15:00 Test Item Value Reference Range Interpretation Comments CO2 (test code = CO2) 30 24-32 [place] 223672-10-30 10:15:00 Test Item Value Reference Range Interpretation Comments AGAP (test code = AGAP) 8.2 10.0-20.0 [facility] CenterCggcawzRSSDIDEBX3957-87-41 10:15:00 Test Item Value Reference Range Interpretation Comments Calcium Lvl (test code = Calcium Lvl) 8.9 8.5-10.5 [facility] CenterLbqnfhaBKGBHLXIF3489-49-00 10:15:00 Test Item Value Reference Range Interpretation Comments eGFR (test code = eGFR) 116 [facility] CenterJixbcfeUNDRYQVPQ1352-92-74 10:15:00 Test Item Value Reference Range Interpretation Comments Magnesium Lvl (test code = Magnesium 1.9 1.8-2.4 Lvl) [facility] CenterBaiejkwTXKMICRAI7226-82-11 10:15:00 Test Item Value Reference Range Interpretation Comments Phosphorus (test code = Phosphorus) 4.2 2.5-4.5 [facility] CenterGrdmqzhBUDOTGJPV1325-92-42 10:15:00 Test Item Value Reference Range Interpretation Comments Ca Ion WB (test code = Ca Ion WB) 1.23 1.05-1.25 [place] 223672-10-30 10:15:00 Test Item Value Reference Range Interpretation Comments Ca Ion at pH 7.4 WB (test code = Ca Ion 1.19 1.05-1.25 at pH 7.4 WB) [facility] HospitalBazzgnbBJHREDQVNI5097-48-03 10:15:00 Test Item Value Reference Range Interpretation Comments WBC (test code = WBC) 10.9 3.7-10.4 [facility] HospitalIptlvoxNUQYRNQAZI0372-75-58 10:15:00 Test Item Value Reference Range Interpretation Comments RBC (test code = RBC) 2.89 4.20-5.40 [place] 406462-10-30 10:15:00 Test Item Value Reference Range Interpretation Comments Hgb (test code = Hgb) 8.2 12.0-16.0 [place] 406462-10-30 10:15:00 Test Item Value Reference Range Interpretation Comments Hct (test code = Hct) 24.5 36.0-48.0 [place] 406462-10-30 10:15:00 Test Item Value Reference Range Interpretation Comments MCV (test code = MCV) 84.7 80.0-98.0 [place] 406462-10-30 10:15:00 Test Item Value Reference Range Interpretation Comments MCH (test code = MCH) 28.4 pg 27.0-31.0 [place] 406462-10-30 10:15:00 Test Item Value Reference Range Interpretation Comments MCHC (test code = MCHC) 33.5 32.0-36.0 [place] 406462-10-30 10:15:00 Test Item Value Reference Range Interpretation Comments RDW (test code = RDW) 13.5 11.5-14.5 [place] 406462-10-30 10:15:00 Test Item Value Reference Range Interpretation Comments Platelet (test code = Platelet) 459 133-450 [place] 406462-10-30 10:15:00 Test Item Value Reference Range Interpretation Comments MPV (test code = MPV) 8.1 7.4-10.4 [place] 406462-10-30 10:15:00 Test Item Value Reference Range Interpretation Comments Segs (test code = Segs) 59.9 45.0-75.0 [place] 406462-10-30 10:15:00 Test Item Value Reference Range Interpretation Comments Lymphocytes (test code = Lymphocytes) 31.3 20.0-40.0 [place] 406462-10-30 10:15:00 Test Item Value Reference Range Interpretation Comments Monocytes (test code = Monocytes) 4.9 2.0-12.0 [facility] HospitalRmwmdxgOHQJQBTRSQ1301-75-31 10:15:00 Test Item Value Reference Range Interpretation Comments Eosinophils (test code = 3.3 See_Comment [A utomated message] The Eosinophils) system which ge nerated this result tra nsmitted reference range : <=4.0. The reference r kyle was not used to int erpret this result as normal/abnormal . [facility] HospitalZjzypstSBOYZLYZAZ4582-89-39 10:15:00 Test Item Value Reference Range Interpretation Comments Basophils (test code = 0.6 See_Comment [Aut omated message] The Basophils) system which ge nerated this result tra nsmitted reference range : <=1.0. The reference r kyle was not used to int erpret this result as normal/abnormal . [place] 406462-10-30 10:15:00 Test Item Value Reference Range Interpretation Comments Neutrophils # (test code = Neutrophils 6.5 1.5-8.1 #) [place] 406462-10-30 10:15:00 Test Item Value Reference Range Interpretation Comments Lymphocytes # (test code = Lymphocytes 3.4 1.0-5.5 #) [facility] HospitalSiclstvYDPFFUPSHS3567-58-54 10:15:00 Test Item Value Reference Range Interpretation Comments Monocytes # (test code 0.5 See_Comment [Aut omated message] The = Monocytes #) system which generated this result tra nsmitted reference range : <=0.8. The reference r kyle was not used to int erpret this result as normal/abnormal . [facility] HospitalBuxldhgTUMFVZHIXY2502-91-00 10:15:00 Test Item Value Reference Range Interpretation Comments Eosinophils # (test code 0.4 See_Comment [A utomated message] The = Eosinophils #) system whic h generated this result tra nsmitted reference range : <=0.5. The reference r kyle was not used to int erpret this result as normal/abnormal . [facility] HospitalEirpzmyIUMXUUMGMZ5790-62-14 10:15:00 Test Item Value Reference Range Interpretation Comments Basophils # (test code 0.1 See_Comment [Aut omated message] The = Basophils #) system which generated this result tra nsmitted reference range : <=0.2. The reference r kyle was not used to int erpret this result as normal/abnormal . [facility] CenterDfvlwxoQKWSRSAKO2691-47-00 10:15:00 Test Item Value Reference Range Interpretation Comments Glucose Lvl (test code = Glucose Lvl) 141 70-99 [facility] CenterGjifnhlNYUEPORRW8808-94-72 10:15:00 Test Item Value Reference Range Interpretation Comments BUN (test code = BUN) 12 7-22 [facility] CenterNvgitxfCSJKESJVM7463-43-48 10:15:00 Test Item Value Reference Range Interpretation Comments Creatinine Lvl (test code = Creatinine 0.42 0.50-1.40 Lvl) [facility] CenterFpvxazsWQITXPBUX9055-82-36 10:15:00 Test Item Value Reference Range Interpretation Comments Sodium Lvl (test code = Sodium Lvl) 135 135-145 [facility] CenterFjccywrNQXCGGZBX9982-24-14 10:15:00 Test Item Value Reference Range Interpretation Comments Potassium Lvl (test code = Potassium 4.2 3.5-5.1 Lvl) [facility] CenterCusgmzpNTOYIXMDM7612-46-30 10:15:00 Test Item Value Reference Range Interpretation Comments Chloride Lvl (test code = Chloride Lvl) 101 95-109 [facility] CenterFlrqboeSYYJORLSC6347-72-45 10:15:00 Test Item Value Reference Range Interpretation Comments CO2 (test code = CO2) 30 24-32 [facility] CenterAkodzgcXSDFQRSQG2000-97-34 10:15:00 Test Item Value Reference Range Interpretation Comments AGAP (test code = AGAP) 8.2 10.0-20.0 [place] 223672-10-30 10:15:00 Test Item Value Reference Range Interpretation Comments Calcium Lvl (test code = Calcium Lvl) 8.9 8.5-10.5 [facility] CenterUitetpgTBUXMCXBA7039-53-56 10:15:00 Test Item Value Reference Range Interpretation Comments eGFR (test code = eGFR) 116 [facility] CenterUaifyxlBPHQTDDQG4361-01-43 10:15:00 Test Item Value Reference Range Interpretation Comments Magnesium Lvl (test code = Magnesium 1.9 1.8-2.4 Lvl) [facility] CenterLnsvzonUJYPBUPGT7360-35-59 10:15:00 Test Item Value Reference Range Interpretation Comments Phosphorus (test code = Phosphorus) 4.2 2.5-4.5 [facility] CenterTeafoitWUZWXPBTO6308-87-22 10:15:00 Test Item Value Reference Range Interpretation Comments Ca Ion WB (test code = Ca Ion WB) 1.23 1.05-1.25 [facility] CenterHyrttmtBZSPYQXPI3609-32-15 10:15:00 Test Item Value Reference Range Interpretation Comments Ca Ion at pH 7.4 WB (test code = Ca Ion 1.19 1.05-1.25 at pH 7.4 WB) [facility] HospitalQzpkzznIQGSXUZTLE1827-16-68 10:15:00 Test Item Value Reference Range Interpretation Comments WBC (test code = WBC) 10.9 3.7-10.4 [facility] HospitalLswmqjrKTOZIWKDBT5335-00-88 10:15:00 Test Item Value Reference Range Interpretation Comments RBC (test code = RBC) 2.89 4.20-5.40 [facility] HospitalBwrnxygAFXPXRXOTE8994-57-05 10:15:00 Test Item Value Reference Range Interpretation Comments Hgb (test code = Hgb) 8.2 12.0-16.0 [place] 406462-10-30 10:15:00 Test Item Value Reference Range Interpretation Comments Hct (test code = Hct) 24.5 36.0-48.0 [facility] HospitalFuixabfTIKDAFSZER7776-96-89 10:15:00 Test Item Value Reference Range Interpretation Comments MCV (test code = MCV) 84.7 80.0-98.0 [place] 406462-10-30 10:15:00 Test Item Value Reference Range Interpretation Comments MCH (test code = MCH) 28.4 pg 27.0-31.0 [place] 406462-10-30 10:15:00 Test Item Value Reference Range Interpretation Comments MCHC (test code = MCHC) 33.5 32.0-36.0 [facility] HospitalTgauzlhTXKBQAVBCE1959-79-45 10:15:00 Test Item Value Reference Range Interpretation Comments RDW (test code = RDW) 13.5 11.5-14.5 [place] 406462-10-30 10:15:00 Test Item Value Reference Range Interpretation Comments Platelet (test code = Platelet) 459 696-450 [place] 406462-10-30 10:15:00 Test Item Value Reference Range Interpretation Comments MPV (test code = MPV) 8.1 7.4-10.4 [place] 406462-10-30 10:15:00 Test Item Value Reference Range Interpretation Comments Segs (test code = Segs) 59.9 45.0-75.0 [place] 406462-10-30 10:15:00 Test Item Value Reference Range Interpretation Comments Lymphocytes (test code = Lymphocytes) 31.3 20.0-40.0 [place] 406462-10-30 10:15:00 Test Item Value Reference Range Interpretation Comments Monocytes (test code = Monocytes) 4.9 2.0-12.0 [place] 406462-10-30 10:15:00 Test Item Value Reference Range Interpretation Comments Eosinophils (test code = 3.3 See_Comment [A utomated message] The Eosinophils) system which ge nerated this result tra nsmitted reference range : <=4.0. The reference r kyle was not used to int erpret this result as normal/abnormal . [facility] HospitalWsyaimaIKSJLIIWQW2591-45-88 10:15:00 Test Item Value Reference Range Interpretation Comments Basophils (test code = 0.6 See_Comment [Aut omated message] The Basophils) system which ge nerated this result tra nsmitted reference range : <=1.0. The reference r kyle was not used to int erpret this result as normal/abnormal . [facility] HospitalWssqxbuGVTQZVXQHL4318-86-24 10:15:00 Test Item Value Reference Range Interpretation Comments Neutrophils # (test code = Neutrophils 6.5 1.5-8.1 #) [facility] HospitalQfidbkqXLSATQCAOK2874-55-16 10:15:00 Test Item Value Reference Range Interpretation Comments Lymphocytes # (test code = Lymphocytes 3.4 1.0-5.5 #) [facility] HospitalIevnzseWFMIXXWLFF2882-23-40 10:15:00 Test Item Value Reference Range Interpretation Comments Monocytes # (test code 0.5 See_Comment [Aut omated message] The = Monocytes #) system which generated this result tra nsmitted reference range : <=0.8. The reference r kyle was not used to int erpret this result as normal/abnormal . [facility] HospitalRhdbaooDSQXJBWIEG9909-29-68 10:15:00 Test Item Value Reference Range Interpretation Comments Eosinophils # (test code 0.4 See_Comment [A utomated message] The = Eosinophils #) system whic h generated this result tra nsmitted reference range : <=0.5. The reference r kyle was not used to int erpret this result as normal/abnormal . [facility] HospitalQvmlwszBFEPLRZNKQ2910-85-07 10:15:00 Test Item Value Reference Range Interpretation Comments Basophils # (test code 0.1 See_Comment [Aut omated message] The = Basophils #) system which generated this result tra nsmitted reference range : <=0.2. The reference r kyle was not used to int erpret this result as normal/abnormal . [facility] CenterRvwklwzRXEXANQTR5661-24-02 10:15:00 Test Item Value Reference Range Interpretation Comments Glucose Lvl (test code = Glucose Lvl) 141 70-99 [facility] CenterZlmihlrHENVQLSGD0237-80-20 10:15:00 Test Item Value Reference Range Interpretation Comments BUN (test code = BUN) 12 7-22 [facility] CenterDwbkaiyGETFOOFZN7894-58-13 10:15:00 Test Item Value Reference Range Interpretation Comments Creatinine Lvl (test code = Creatinine 0.42 0.50-1.40 Lvl) [facility] CenterXfbkyiqUUTPNYATP5264-91-87 10:15:00 Test Item Value Reference Range Interpretation Comments Sodium Lvl (test code = Sodium Lvl) 135 135-145 [place] 223672-10-30 10:15:00 Test Item Value Reference Range Interpretation Comments Potassium Lvl (test code = Potassium 4.2 3.5-5.1 Lvl) [facility] CenterUfvarbvOYQKLQEPL8204-42-53 10:15:00 Test Item Value Reference Range Interpretation Comments Chloride Lvl (test code = Chloride Lvl) 101 95-109 [facility] CenterKflreleRONVLRGLN7291-44-50 10:15:00 Test Item Value Reference Range Interpretation Comments CO2 (test code = CO2) 30 24-32 [facility] CenterLxqgrkxUDTOWDTGJ0057-15-20 10:15:00 Test Item Value Reference Range Interpretation Comments AGAP (test code = AGAP) 8.2 10.0-20.0 [facility] CenterQhgctmqMVKLJSKIT4454-84-18 10:15:00 Test Item Value Reference Range Interpretation Comments Calcium Lvl (test code = Calcium Lvl) 8.9 8.5-10.5 [facility] CenterVwzmpyuVTYEKFHAW7306-03-70 10:15:00 Test Item Value Reference Range Interpretation Comments eGFR (test code = eGFR) 116 [facility] CenterUximmxmAMHFMOUFY8752-77-28 10:15:00 Test Item Value Reference Range Interpretation Comments Magnesium Lvl (test code = Magnesium 1.9 1.8-2.4 Lvl) [facility] CenterPsfhuuxNVLGMIAEI8979-98-98 10:15:00 Test Item Value Reference Range Interpretation Comments Phosphorus (test code = Phosphorus) 4.2 2.5-4.5 [facility] CenterKcpubtkLLEAKDZTM2173-65-53 10:15:00 Test Item Value Reference Range Interpretation Comments Ca Ion WB (test code = Ca Ion WB) 1.23 1.05-1.25 [facility] CenterWssxaeoNVKJDWHTK4619-58-22 10:15:00 Test Item Value Reference Range Interpretation Comments Ca Ion at pH 7.4 WB (test code = Ca Ion 1.19 1.05-1.25 at pH 7.4 WB) [facility] HospitalPdvserlYRWPGCNQPG5845-14-68 10:15:00 Test Item Value Reference Range Interpretation Comments WBC (test code = WBC) 10.9 3.7-10.4 [facility] HospitalFggzbwrGSDORECHOJ2233-54-53 10:15:00 Test Item Value Reference Range Interpretation Comments RBC (test code = RBC) 2.89 4.20-5.40 [facility] HospitalNaggmzuNLORYHNISQ0078-93-66 10:15:00 Test Item Value Reference Range Interpretation Comments Hgb (test code = Hgb) 8.2 12.0-16.0 [facility] HospitalAikpxddWDIVQUUHMD4022-12-28 10:15:00 Test Item Value Reference Range Interpretation Comments Hct (test code = Hct) 24.5 36.0-48.0 [facility] HospitalHsbqdlrYGIJIEXOSK0896-82-92 10:15:00 Test Item Value Reference Range Interpretation Comments MCV (test code = MCV) 84.7 80.0-98.0 [facility] HospitalRqalywiVDVHYJBBZR1224-49-15 10:15:00 Test Item Value Reference Range Interpretation Comments MCH (test code = MCH) 28.4 pg 27.0-31.0 [facility] HospitalYysqitdEUAYVSXRFJ7257-79-76 10:15:00 Test Item Value Reference Range Interpretation Comments MCHC (test code = MCHC) 33.5 32.0-36.0 [facility] HospitalXjpoddmIBURXVTTJB8909-80-22 10:15:00 Test Item Value Reference Range Interpretation Comments RDW (test code = RDW) 13.5 11.5-14.5 [facility] HospitalGieztsxOMAITGBDFT0627-33-05 10:15:00 Test Item Value Reference Range Interpretation Comments Platelet (test code = Platelet) 459 133-450 [facility] HospitalQouybkoIGWKBSNYJW9506-55-82 10:15:00 Test Item Value Reference Range Interpretation Comments MPV (test code = MPV) 8.1 7.4-10.4 [place] 406462-10-30 10:15:00 Test Item Value Reference Range Interpretation Comments Segs (test code = Segs) 59.9 45.0-75.0 [facility] HospitalXssjcoeYAQNBCWUUY1209-91-62 10:15:00 Test Item Value Reference Range Interpretation Comments Lymphocytes (test code = Lymphocytes) 31.3 20.0-40.0 [place] 406462-10-30 10:15:00 Test Item Value Reference Range Interpretation Comments Monocytes (test code = Monocytes) 4.9 2.0-12.0 [place] 406462-10-30 10:15:00 Test Item Value Reference Range Interpretation Comments Eosinophils (test code = 3.3 See_Comment [A utomated message] The Eosinophils) system which ge nerated this result tra nsmitted reference range : <=4.0. The reference r kyle was not used to int erpret this result as normal/abnormal . [facility]MdnypxpQKOOSJWQHL1923-44-51 10:15:00 Test Item Value Reference Range Interpretation Comments Basophils (test code = 0.6 See_Comment [Aut omated message] The Basophils) system which ge nerated this result tra nsmitted reference range : <=1.0. The reference r kyle was not used to int erpret this result as normal/abnormal . [facility] HospitalOlcqsfuUIZQITWBAG9134-21-34 10:15:00 Test Item Value Reference Range Interpretation Comments Neutrophils # (test code = Neutrophils 6.5 1.5-8.1 #) [facility] HospitalNxqkdqjYTUNGQPECL4417-87-40 10:15:00 Test Item Value Reference Range Interpretation Comments Lymphocytes # (test code = Lymphocytes 3.4 1.0-5.5 #) [place] 406462-10-30 10:15:00 Test Item Value Reference Range Interpretation Comments Monocytes # (test code 0.5 See_Comment [Aut omated message] The = Monocytes #) system which generated this result tra nsmitted reference range : <=0.8. The reference r kyle was not used to int erpret this result as normal/abnormal . [facility] HospitalCwmdxygPNVTJDUQEP6789-08-13 10:15:00 Test Item Value Reference Range Interpretation Comments Eosinophils # (test code 0.4 See_Comment [A utomated message] The = Eosinophils #) system whic h generated this result tra nsmitted reference range : <=0.5. The reference r kyle was not used to int erpret this result as normal/abnormal . [facility] HospitalYmjrigiAIETZNMIAH7130-21-64 10:15:00 Test Item Value Reference Range Interpretation Comments Basophils # (test code 0.1 See_Comment [Aut omated message] The = Basophils #) system which generated this result tra nsmitted reference range : <=0.2. The reference r kyle was not used to int erpret this result as normal/abnormal . [facility]VzjkglgXSCUZYVRX7425-56-55 10:15:00 Test Item Value Reference Range Interpretation Comments Glucose Lvl (test code = Glucose Lvl) 141 70-99 [facility] CenterLlmporrEVVCTOFOR7194-13-54 10:15:00 Test Item Value Reference Range Interpretation Comments BUN (test code = BUN) 12 7-22 [facility] CenterZbrnjuzFZXASTNJY1135-03-05 10:15:00 Test Item Value Reference Range Interpretation Comments Creatinine Lvl (test code = Creatinine 0.42 0.50-1.40 Lvl) [facility] CenterFtirzdvQRRQSIOZI9608-63-64 10:15:00 Test Item Value Reference Range Interpretation Comments Sodium Lvl (test code = Sodium Lvl) 135 135-145 [facility] CenterIgburceYBKTVTHSD8397-25-73 10:15:00 Test Item Value Reference Range Interpretation Comments Potassium Lvl (test code = Potassium 4.2 3.5-5.1 Lvl) [facility] CenterYacvpfoGBCTRJRVV4312-55-71 10:15:00 Test Item Value Reference Range Interpretation Comments Chloride Lvl (test code = Chloride Lvl) 101 95-109 [facility] CenterSzobrgeRLXWFBLEC9837-74-15 10:15:00 Test Item Value Reference Range Interpretation Comments CO2 (test code = CO2) 30 24-32 [facility] CenterPwyuwuiNMJCTEMWF5667-46-28 10:15:00 Test Item Value Reference Range Interpretation Comments AGAP (test code = AGAP) 8.2 10.0-20.0 [facility] CenterCwxmfreJZAAFDVHR1842-12-49 10:15:00 Test Item Value Reference Range Interpretation Comments Calcium Lvl (test code = Calcium Lvl) 8.9 8.5-10.5 [facility] CenterWjaivilXDUMYZVCY9614-56-30 10:15:00 Test Item Value Reference Range Interpretation Comments eGFR (test code = eGFR) 116 [facility] CenterJruhrzcYLFJJONOG6129-67-26 10:15:00 Test Item Value Reference Range Interpretation Comments Magnesium Lvl (test code = Magnesium 1.9 1.8-2.4 Lvl) [facility] CenterWvdhoabBPFQRJKKW4328-01-54 10:15:00 Test Item Value Reference Range Interpretation Comments Phosphorus (test code = Phosphorus) 4.2 2.5-4.5 [facility] CenterUiwgtamTVQHHLNRC4274-08-47 10:15:00 Test Item Value Reference Range Interpretation Comments Ca Ion WB (test code = Ca Ion WB) 1.23 1.05-1.25 [facility] CenterCitwzylXIBOBHYCQ7060-09-80 10:15:00 Test Item Value Reference Range Interpretation Comments Ca Ion at pH 7.4 WB (test code = Ca Ion 1.19 1.05-1.25 at pH 7.4 WB) [facility] HospitalHfpdijhGSRHDHZGPW9653-35-69 10:15:00 Test Item Value Reference Range Interpretation Comments WBC (test code = WBC) 10.9 3.7-10.4 [place] 406462-10-30 10:15:00 Test Item Value Reference Range Interpretation Comments RBC (test code = RBC) 2.89 4.20-5.40 [facility] HospitalLnfdxvhINAUFMBIMJ9151-11-35 10:15:00 Test Item Value Reference Range Interpretation Comments Hgb (test code = Hgb) 8.2 12.0-16.0 [place] [address]-10-30 10:15:00 Test Item Value Reference Range Interpretation Comments Hct (test code = Hct) 24.5 36.0-48.0 [place] 406462-10-30 10:15:00 Test Item Value Reference Range Interpretation Comments MCV (test code = MCV) 84.7 80.0-98.0 [place] 406462-10-30 10:15:00 Test Item Value Reference Range Interpretation Comments MCH (test code = MCH) 28.4 pg 27.0-31.0 [facility] HospitalRmdengnDFFXWVSDUX1892-33-08 10:15:00 Test Item Value Reference Range Interpretation Comments MCHC (test code = MCHC) 33.5 32.0-36.0 [facility] HospitalXxpynwgZWFNOYEUNT2869-63-25 10:15:00 Test Item Value Reference Range Interpretation Comments RDW (test code = RDW) 13.5 11.5-14.5 [facility] HospitalXsxjhqqWVSQCEVLNV0911-46-01 10:15:00 Test Item Value Reference Range Interpretation Comments Platelet (test code = Platelet) 459 548-450 [facility] HospitalEltyqnhMBHRNHBGAT8203-60-65 10:15:00 Test Item Value Reference Range Interpretation Comments MPV (test code = MPV) 8.1 7.4-10.4 [place] 406462-10-30 10:15:00 Test Item Value Reference Range Interpretation Comments Segs (test code = Segs) 59.9 45.0-75.0 [place] [address]-10-30 10:15:00 Test Item Value Reference Range Interpretation Comments Lymphocytes (test code = Lymphocytes) 31.3 20.0-40.0 [place] 406462-10-30 10:15:00 Test Item Value Reference Range Interpretation Comments Monocytes (test code = Monocytes) 4.9 2.0-12.0 [place] [address]-10-30 10:15:00 Test Item Value Reference Range Interpretation Comments Eosinophils (test code = 3.3 See_Comment [A utomated message] The Eosinophils) system which ge nerated this result tra nsmitted reference range : <=4.0. The reference r kyle was not used to int erpret this result as normal/abnormal . [place] [address]-10-30 10:15:00 Test Item Value Reference Range Interpretation Comments Basophils (test code = 0.6 See_Comment [Aut omated message] The Basophils) system which ge nerated this result tra nsmitted reference range : <=1.0. The reference r kyle was not used to int erpret this result as normal/abnormal . [place] [address]-10-30 10:15:00 Test Item Value Reference Range Interpretation Comments Neutrophils # (test code = Neutrophils 6.5 1.5-8.1 #) [place] 406462-10-30 10:15:00 Test Item Value Reference Range Interpretation Comments Lymphocytes # (test code = Lymphocytes 3.4 1.0-5.5 #) [place] 406462-10-30 10:15:00 Test Item Value Reference Range Interpretation Comments Monocytes # (test code 0.5 See_Comment [Aut omated message] The = Monocytes #) system which generated this result tra nsmitted reference range : <=0.8. The reference r kyle was not used to int erpret this result as normal/abnormal . [place] [address]-10-30 10:15:00 Test Item Value Reference Range Interpretation Comments Eosinophils # (test code 0.4 See_Comment [A utomated message] The = Eosinophils #) system wh h generated this result tra nsmitted reference range : <=0.5. The reference r kyle was not used to int erpret this result as normal/abnormal . [place] [address]-10-30 10:15:00 Test Item Value Reference Range Interpretation Comments Basophils # (test code 0.1 See_Comment [Aut omated message] The = Basophils #) system which generated this result tra nsmitted reference range : <=0.2. The reference r kyle was not used to int erpret this result as normal/abnormal . [facility] CenterXumalbkRLHTZYABT4457-64-33 10:15:00 Test Item Value Reference Range Interpretation Comments Glucose Lvl (test code = Glucose Lvl) 141 70-99 [facility] CenterSyvuxbrLCBQXVFVG4438-06-96 10:15:00 Test Item Value Reference Range Interpretation Comments BUN (test code = BUN) 12 7-22 [facility] CenterNykrkltLXDQYSSYU6843-46-49 10:15:00 Test Item Value Reference Range Interpretation Comments Creatinine Lvl (test code = Creatinine 0.42 0.50-1.40 Lvl) [facility] CenterXrgzldoZVJOAWEBF5236-51-40 10:15:00 Test Item Value Reference Range Interpretation Comments Sodium Lvl (test code = Sodium Lvl) 135 135-145 [facility] CenterPvtmhfoZAIONETNO7850-09-06 10:15:00 Test Item Value Reference Range Interpretation Comments Potassium Lvl (test code = Potassium 4.2 3.5-5.1 Lvl) [facility] CenterBuqigbzWWTRGQRDG6810-09-94 10:15:00 Test Item Value Reference Range Interpretation Comments Chloride Lvl (test code = Chloride Lvl) 101 95-109 [facility] CenterSwryfpkRQXBVFPGT1328-41-73 10:15:00 Test Item Value Reference Range Interpretation Comments CO2 (test code = CO2) 30 24-32 [facility] CenterRgtbtkzTXHDJKDGU0548-43-06 10:15:00 Test Item Value Reference Range Interpretation Comments AGAP (test code = AGAP) 8.2 10.0-20.0 [facility] CenterSmiusezIZCJDWQLL9642-05-02 10:15:00 Test Item Value Reference Range Interpretation Comments Calcium Lvl (test code = Calcium Lvl) 8.9 8.5-10.5 [facility] CenterWrlenwyRRKGVRAQN9682-82-94 10:15:00 Test Item Value Reference Range Interpretation Comments eGFR (test code = eGFR) 116 [facility] CenterYowkdszAHHKTMQVA8127-52-99 10:15:00 Test Item Value Reference Range Interpretation Comments Magnesium Lvl (test code = Magnesium 1.9 1.8-2.4 Lvl) [facility] CenterVyatixwNOOKOASGY8390-03-03 10:15:00 Test Item Value Reference Range Interpretation Comments Phosphorus (test code = Phosphorus) 4.2 2.5-4.5 [facility] CenterSzlvvroGSLCWXLXS0887-84-23 10:15:00 Test Item Value Reference Range Interpretation Comments Ca Ion WB (test code = Ca Ion WB) 1.23 1.05-1.25 [facility] CenterIkbkhceKTDUZICZC2305-63-90 10:15:00 Test Item Value Reference Range Interpretation Comments Ca Ion at pH 7.4 WB (test code = Ca Ion 1.19 1.05-1.25 at pH 7.4 WB) [facility] HospitalGrznhjjYALZSLOMSO6401-40-16 10:15:00 Test Item Value Reference Range Interpretation Comments WBC (test code = WBC) 10.9 3.7-10.4 [facility] HospitalGeiqsgaTKEOFHONQR6577-06-25 10:15:00 Test Item Value Reference Range Interpretation Comments RBC (test code = RBC) 2.89 4.20-5.40 [facility] HospitalDqjqbleFKAIYROSIA0656-39-93 10:15:00 Test Item Value Reference Range Interpretation Comments Hgb (test code = Hgb) 8.2 12.0-16.0 [facility] HospitalBwozgdfJIQNDPAJBG9801-41-28 10:15:00 Test Item Value Reference Range Interpretation Comments Hct (test code = Hct) 24.5 36.0-48.0 [facility] HospitalVknqkcyQZGEIEVDED9578-04-95 10:15:00 Test Item Value Reference Range Interpretation Comments MCV (test code = MCV) 84.7 80.0-98.0 [facility] HospitalRzyfcxeIOMAJHHNXB9895-38-13 10:15:00 Test Item Value Reference Range Interpretation Comments MCH (test code = MCH) 28.4 pg 27.0-31.0 [facility] HospitalXgckglwNEXLGICNOI2348-26-97 10:15:00 Test Item Value Reference Range Interpretation Comments MCHC (test code = MCHC) 33.5 32.0-36.0 [facility] HospitalBcfuwxcWBZMXZCTFP5023-89-87 10:15:00 Test Item Value Reference Range Interpretation Comments RDW (test code = RDW) 13.5 11.5-14.5 [facility] HospitalGyiqydsXAALHPVZOE6604-73-91 10:15:00 Test Item Value Reference Range Interpretation Comments Platelet (test code = Platelet) 255 167-316 [facility] HospitalAmjzxojTLZRFTRGEJ3067-98-72 10:15:00 Test Item Value Reference Range Interpretation Comments MPV (test code = MPV) 8.1 7.4-10.4 [facility] HospitalOhdrvurQCQKBFQUKL1517-01-91 10:15:00 Test Item Value Reference Range Interpretation Comments Segs (test code = Segs) 59.9 45.0-75.0 [place] 406462-10-30 10:15:00 Test Item Value Reference Range Interpretation Comments Lymphocytes (test code = Lymphocytes) 31.3 20.0-40.0 [place] 406462-10-30 10:15:00 Test Item Value Reference Range Interpretation Comments Monocytes (test code = Monocytes) 4.9 2.0-12.0 [place] 406462-10-30 10:15:00 Test Item Value Reference Range Interpretation Comments Eosinophils (test code = 3.3 See_Comment [A utomated message] The Eosinophils) system which ge nerated this result tra nsmitted reference range : <=4.0. The reference r kyle was not used to int erpret this result as normal/abnormal . [place] [address]-10-30 10:15:00 Test Item Value Reference Range Interpretation Comments Basophils (test code = 0.6 See_Comment [Aut omated message] The Basophils) system which ge nerated this result tra nsmitted reference range : <=1.0. The reference r kyle was not used to int erpret this result as normal/abnormal . [facility] HospitalKminhauEDQCOXYTSF7711-54-72 10:15:00 Test Item Value Reference Range Interpretation Comments Neutrophils # (test code = Neutrophils 6.5 1.5-8.1 #) [place] 406462-10-30 10:15:00 Test Item Value Reference Range Interpretation Comments Lymphocytes # (test code = Lymphocytes 3.4 1.0-5.5 #) [place] 406462-10-30 10:15:00 Test Item Value Reference Range Interpretation Comments Monocytes # (test code 0.5 See_Comment [Aut omated message] The = Monocytes #) system which generated this result tra nsmitted reference range : <=0.8. The reference r kyle was not used to int erpret this result as normal/abnormal . [place] [address]-10-30 10:15:00 Test Item Value Reference Range Interpretation Comments Eosinophils # (test code 0.4 See_Comment [A utomated message] The = Eosinophils #) system whic h generated this result tra nsmitted reference range : <=0.5. The reference r kyle was not used to int erpret this result as normal/abnormal . [facility] HospitalFgmewoeBIDEWDTKUA2150-89-08 10:15:00 Test Item Value Reference Range Interpretation Comments Basophils # (test code 0.1 See_Comment [Aut omated message] The = Basophils #) system which generated this result tra nsmitted reference range : <=0.2. The reference r kyle was not used to int erpret this result as normal/abnormal . [facility] CenterPmuuvfyOIIWZCQMJ2873-41-65 10:15:00 Test Item Value Reference Range Interpretation Comments Glucose Lvl (test code = Glucose Lvl) 141 70-99 [facility] CenterMzubjfnWDSWUJMIX1318-37-31 10:15:00 Test Item Value Reference Range Interpretation Comments BUN (test code = BUN) 12 7-22 [facility] CenterYdnhermJJDRTWHGJ8481-24-38 10:15:00 Test Item Value Reference Range Interpretation Comments Creatinine Lvl (test code = Creatinine 0.42 0.50-1.40 Lvl) [facility] CenterPmsckorVWEONGABJ4643-20-28 10:15:00 Test Item Value Reference Range Interpretation Comments Sodium Lvl (test code = Sodium Lvl) 135 135-145 [facility] CenterDyrrzepMUZEECBWW8873-01-02 10:15:00 Test Item Value Reference Range Interpretation Comments Potassium Lvl (test code = Potassium 4.2 3.5-5.1 Lvl) [facility] CenterYcgxzxaWQXZLUNES4728-09-36 10:15:00 Test Item Value Reference Range Interpretation Comments Chloride Lvl (test code = Chloride Lvl) 101 95-109 [facility] CenterUoiitxcYSBDSAOSP4757-25-71 10:15:00 Test Item Value Reference Range Interpretation Comments CO2 (test code = CO2) 30 24-32 [facility] CenterEvucrpzFFNGBAPYY8782-33-60 10:15:00 Test Item Value Reference Range Interpretation Comments AGAP (test code = AGAP) 8.2 10.0-20.0 [facility] CenterGwizkugZHAASMXEF2650-92-52 10:15:00 Test Item Value Reference Range Interpretation Comments Calcium Lvl (test code = Calcium Lvl) 8.9 8.5-10.5 [facility] CenterHwjdnzfLPSSDHDNS6662-36-28 10:15:00 Test Item Value Reference Range Interpretation Comments eGFR (test code = eGFR) 116 [facility] CenterSniwiujSSLHRUPLD2403-70-25 10:15:00 Test Item Value Reference Range Interpretation Comments Magnesium Lvl (test code = Magnesium 1.9 1.8-2.4 Lvl) [facility] CenterGmtvmdjQSIULIKKZ9743-65-68 10:15:00 Test Item Value Reference Range Interpretation Comments Phosphorus (test code = Phosphorus) 4.2 2.5-4.5 [facility] CenterNafztlbQYGQEVXRL0309-79-88 10:15:00 Test Item Value Reference Range Interpretation Comments Glucose Lvl (test code = Glucose Lvl) 141 70-99 [facility] CenterUchvzusMWYDUKTCC0924-12-89 10:15:00 Test Item Value Reference Range Interpretation Comments Ca Ion WB (test code = Ca Ion WB) 1.23 1.05-1.25 [facility] CenterZvrdftaPINFTWKDJ4008-40-00 10:15:00 Test Item Value Reference Range Interpretation Comments BUN (test code = BUN) 12 7-22 [facility] CenterEqlcabjXXJEXPXPP5217-42-39 10:15:00 Test Item Value Reference Range Interpretation Comments Creatinine Lvl (test code = Creatinine 0.42 0.50-1.40 Lvl) [facility] CenterUcnzstoBXRYYEVJN0903-97-74 10:15:00 Test Item Value Reference Range Interpretation Comments Sodium Lvl (test code = Sodium Lvl) 135 135-145 [facility] CenterSgwyyxlJNFGBHMCC2552-44-25 10:15:00 Test Item Value Reference Range Interpretation Comments Potassium Lvl (test code = Potassium 4.2 3.5-5.1 Lvl) [facility] CenterNpnzzucVADGQNRMF5385-56-37 10:15:00 Test Item Value Reference Range Interpretation Comments Chloride Lvl (test code = Chloride Lvl) 101 95-109 [facility] CenterHjsjrkdBYMWPYWHQ1967 10:15:00 Test Item Value Reference Range Interpretation Comments CO2 (test code = CO2) 30 24-32 [facility] CenterPkpybvkQNIIBBFHY0762-24-78 10:15:00 Test Item Value Reference Range Interpretation Comments AGAP (test code = AGAP) 8.2 10.0-20.0 [facility] CenterTykpwiyFQVFNQDKB1258-65-54 10:15:00 Test Item Value Reference Range Interpretation Comments Calcium Lvl (test code = Calcium Lvl) 8.9 8.5-10.5 [facility] CenterSdyjirhZWVACCXIH5941-39-76 10:15:00 Test Item Value Reference Range Interpretation Comments eGFR (test code = eGFR) 116 [facility] CenterDdhtewwVTOQHPOSN3406-24-46 10:15:00 Test Item Value Reference Range Interpretation Comments Magnesium Lvl (test code = Magnesium 1.9 1.8-2.4 Lvl) [facility] CenterQqgdotlVQLHJVWRX3395-86-73 10:15:00 Test Item Value Reference Range Interpretation Comments Ca Ion at pH 7.4 WB (test code = Ca Ion 1.19 1.05-1.25 at pH 7.4 WB) [facility] CenterIaehuwyAOUZHUJPZ2391-82-46 10:15:00 Test Item Value Reference Range Interpretation Comments Phosphorus (test code = Phosphorus) 4.2 2.5-4.5 [facility] CenterPocttcbSVKWJFKDR2093-74-30 10:15:00 Test Item Value Reference Range Interpretation Comments Ca Ion WB (test code = Ca Ion WB) 1.23 1.05-1.25 [facility] CenterMeljtwzCQGYEOPEQ6694-93-23 10:15:00 Test Item Value Reference Range Interpretation Comments Ca Ion at pH 7.4 WB (test code = Ca Ion 1.19 1.05-1.25 at pH 7.4 WB) [facility] HospitalIshijtwALRNUYOZBA5661-86-13 10:15:00 Test Item Value Reference Range Interpretation Comments WBC (test code = WBC) 10.9 3.7-10.4 [facility] HospitalMncmsxqTKASVMADWB5867-70-05 10:15:00 Test Item Value Reference Range Interpretation Comments RBC (test code = RBC) 2.89 4.20-5.40 [facility] HospitalGusddcuMSAUAMTEBS2785-10-00 10:15:00 Test Item Value Reference Range Interpretation Comments Hgb (test code = Hgb) 8.2 12.0-16.0 [place] 406462-10-30 10:15:00 Test Item Value Reference Range Interpretation Comments Hct (test code = Hct) 24.5 36.0-48.0 [place] 406462-10-30 10:15:00 Test Item Value Reference Range Interpretation Comments MCV (test code = MCV) 84.7 80.0-98.0 [place] [address]-10-30 10:15:00 Test Item Value Reference Range Interpretation Comments MCH (test code = MCH) 28.4 pg 27.0-31.0 [facility] HospitalUdfrbsfNPQSLYITUW1622-57-11 10:15:00 Test Item Value Reference Range Interpretation Comments MCHC (test code = MCHC) 33.5 32.0-36.0 [facility] HospitalCvwxlxsLXISVIQLEG5471-85-36 10:15:00 Test Item Value Reference Range Interpretation Comments WBC (test code = WBC) 10.9 3.7-10.4 [facility] HospitalTkoxuvaBFYXVNZJEI4532-57-29 10:15:00 Test Item Value Reference Range Interpretation Comments RDW (test code = RDW) 13.5 11.5-14.5 [facility] HospitalApddhvaPYNMGRUNIQ1679-80-29 10:15:00 Test Item Value Reference Range Interpretation Comments Platelet (test code = Platelet) 459 133-450 [facility] HospitalHdrurqqDFBWCJUXNQ9149-81-34 10:15:00 Test Item Value Reference Range Interpretation Comments MPV (test code = MPV) 8.1 7.4-10.4 [facility] HospitalEvhjiwqMESVKFZSZB6548-57-37 10:15:00 Test Item Value Reference Range Interpretation Comments Segs (test code = Segs) 59.9 45.0-75.0 [facility] HospitalFmtntsoMQJEJWFZXV6508-36-36 10:15:00 Test Item Value Reference Range Interpretation Comments Lymphocytes (test code = Lymphocytes) 31.3 20.0-40.0 [facility] HospitalAzlrxayHFQMXBHAAM7897-83-02 10:15:00 Test Item Value Reference Range Interpretation Comments Monocytes (test code = Monocytes) 4.9 2.0-12.0 [facility] HospitalJoluorfSBYTNAJAIJ8403-35-61 10:15:00 Test Item Value Reference Range Interpretation Comments Eosinophils (test code = 3.3 See_Comment [A utomated message] The Eosinophils) system which ge nerated this result tra nsmitted reference range : <=4.0. The reference r kyle was not used to int erpret this result as normal/abnormal . [facility] HospitalLjfcazzYHOYBCFWJR8536-16-83 10:15:00 Test Item Value Reference Range Interpretation Comments Basophils (test code = 0.6 See_Comment [Aut omated message] The Basophils) system which ge nerated this result tra nsmitted reference range : <=1.0. The reference r kyle was not used to int erpret this result as normal/abnormal . [facility] HospitalLedrimjHLDDBQXOPJ7694-09-08 10:15:00 Test Item Value Reference Range Interpretation Comments Neutrophils # (test code = Neutrophils 6.5 1.5-8.1 #) [facility] HospitalNcfkrjcIYUPWTOOCJ4286-86-80 10:15:00 Test Item Value Reference Range Interpretation Comments Lymphocytes # (test code = Lymphocytes 3.4 1.0-5.5 #) [facility] HospitalFakmortNYVWATABTI1761-93-16 10:15:00 Test Item Value Reference Range Interpretation Comments RBC (test code = RBC) 2.89 4.20-5.40 [place] 406462-10-30 10:15:00 Test Item Value Reference Range Interpretation Comments Monocytes # (test code 0.5 See_Comment [Aut omated message] The = Monocytes #) system which generated this result tra nsmitted reference range : <=0.8. The reference r kyle was not used to int erpret this result as normal/abnormal . [facility] HospitalAwtwnyaVMMFDOSRAB3124-78-14 10:15:00 Test Item Value Reference Range Interpretation Comments Eosinophils # (test code 0.4 See_Comment [A utomated message] The = Eosinophils #) system whic h generated this result tra nsmitted reference range : <=0.5. The reference r kyle was not used to int erpret this result as normal/abnormal . [facility] HospitalZorgmgpXWJRCRTSFZ6520-10-32 10:15:00 Test Item Value Reference Range Interpretation Comments Basophils # (test code 0.1 See_Comment [Aut omated message] The = Basophils #) system which generated this result tra nsmitted reference range : <=0.2. The reference r kyle was not used to int erpret this result as normal/abnormal . [facility]IkwtsojSUWLMOAOPX1033-18-96 10:15:00 Test Item Value Reference Range Interpretation Comments Hgb (test code = Hgb) 8.2 12.0-16.0 [place] 406462-10-30 10:15:00 Test Item Value Reference Range Interpretation Comments Hct (test code = Hct) 24.5 36.0-48.0 [place] 406462-10-30 10:15:00 Test Item Value Reference Range Interpretation Comments MCV (test code = MCV) 84.7 80.0-98.0 [place] 406462-10-30 10:15:00 Test Item Value Reference Range Interpretation Comments MCH (test code = MCH) 28.4 pg 27.0-31.0 [facility] HospitalYfcvcatPFMHGWBMTK0299-38-90 10:15:00 Test Item Value Reference Range Interpretation Comments MCHC (test code = MCHC) 33.5 32.0-36.0 [facility] HospitalWzoshweGXQHXFGPIE4231-21-50 10:15:00 Test Item Value Reference Range Interpretation Comments RDW (test code = RDW) 13.5 11.5-14.5 [facility] HospitalCepacewTQKWFCVPTJ7683-88-47 10:15:00 Test Item Value Reference Range Interpretation Comments Platelet (test code = Platelet) 459 133-450 [facility] HospitalUyucwcqFFSXMJMLFO7079-19-80 10:15:00 Test Item Value Reference Range Interpretation Comments MPV (test code = MPV) 8.1 7.4-10.4 [facility] HospitalGioyaznTMQUEBUDUN3494-17-42 10:15:00 Test Item Value Reference Range Interpretation Comments Segs (test code = Segs) 59.9 45.0-75.0 [facility] HospitalDcbntscXWTQBSIJTP5228-04-14 10:15:00 Test Item Value Reference Range Interpretation Comments Lymphocytes (test code = Lymphocytes) 31.3 20.0-40.0 [facility] HospitalIlqnpybKJYCKMWQEU7216-08-05 10:15:00 Test Item Value Reference Range Interpretation Comments Monocytes (test code = Monocytes) 4.9 2.0-12.0 [facility] HospitalFnlfdpnHVIEDAMUIP2730-66-43 10:15:00 Test Item Value Reference Range Interpretation Comments Eosinophils (test code = 3.3 See_Comment [A utomated message] The Eosinophils) system which ge nerated this result tra nsmitted reference range : <=4.0. The reference r kyle was not used to int erpret this result as normal/abnormal . [facility] HospitalRqauzrwCGDSBMRQAK4482-69-07 10:15:00 Test Item Value Reference Range Interpretation Comments Basophils (test code = 0.6 See_Comment [Aut omated message] The Basophils) system which ge nerated this result tra nsmitted reference range : <=1.0. The reference r kyle was not used to int erpret this result as normal/abnormal . [facility] HospitalEzveamyFNALGPUVNA8962-25-14 10:15:00 Test Item Value Reference Range Interpretation Comments Neutrophils # (test code = Neutrophils 6.5 1.5-8.1 #) [facility] HospitalZtayntaOGFRMPJSHP5820-95-55 10:15:00 Test Item Value Reference Range Interpretation Comments Lymphocytes # (test code = Lymphocytes 3.4 1.0-5.5 #) [facility] HospitalNcgofdrUXXKSHGTEM6497-54-25 10:15:00 Test Item Value Reference Range Interpretation Comments Monocytes # (test code 0.5 See_Comment [Aut omated message] The = Monocytes #) system which generated this result tra nsmitted reference range : <=0.8. The reference r kyle was not used to int erpret this result as normal/abnormal . [facility] HospitalDxdtfpbDJYXXCSDGV1935-74-61 10:15:00 Test Item Value Reference Range Interpretation Comments Eosinophils # (test code 0.4 See_Comment [A utomated message] The = Eosinophils #) system whic h generated this result tra nsmitted reference range : <=0.5. The reference r kyle was not used to int erpret this result as normal/abnormal . [place] 406462-10-30 10:15:00 Test Item Value Reference Range Interpretation Comments Basophils # (test code 0.1 See_Comment [Aut omated message] The = Basophils #) system which generated this result tra nsmitted reference range : <=0.2. The reference r kyle was not used to int erpret this result as normal/abnormal . [facility] CenterBxxeqvzSLOTHCOWV1119-51-51 10:15:00 Test Item Value Reference Range Interpretation Comments Glucose Lvl (test code = Glucose Lvl) 141 70-99 [facility] CenterMrnqcmgXKUVMBYOV7207-61-14 10:15:00 Test Item Value Reference Range Interpretation Comments BUN (test code = BUN) 12 7-22 [place] 223672-10-30 10:15:00 Test Item Value Reference Range Interpretation Comments Creatinine Lvl (test code = Creatinine 0.42 0.50-1.40 Lvl) [facility] CenterDmvjpsrVFXMWFSGO3476-86-85 10:15:00 Test Item Value Reference Range Interpretation Comments Sodium Lvl (test code = Sodium Lvl) 135 135-145 [place] 223672-10-30 10:15:00 Test Item Value Reference Range Interpretation Comments Potassium Lvl (test code = Potassium 4.2 3.5-5.1 Lvl) [facility] CenterEqucmlvGHKIZYSYF4016-44-85 10:15:00 Test Item Value Reference Range Interpretation Comments Chloride Lvl (test code = Chloride Lvl) 101 95-109 [facility] CenterIsnnrpqAWCXVPNGD2996-11-78 10:15:00 Test Item Value Reference Range Interpretation Comments CO2 (test code = CO2) 30 24-32 [facility] CenterMdwkwseXEBISIDEI1974-36-22 10:15:00 Test Item Value Reference Range Interpretation Comments AGAP (test code = AGAP) 8.2 10.0-20.0 [facility] CenterCbgzlyqPMRPNHKKS8600-84-41 10:15:00 Test Item Value Reference Range Interpretation Comments Calcium Lvl (test code = Calcium Lvl) 8.9 8.5-10.5 [facility] CenterFliaxevSTOAQVSSK2710-18-85 10:15:00 Test Item Value Reference Range Interpretation Comments eGFR (test code = eGFR) 116 [facility] CenterJsiakcyRJDEDFWBQ5560-54-56 10:15:00 Test Item Value Reference Range Interpretation Comments Magnesium Lvl (test code = Magnesium 1.9 1.8-2.4 Lvl) [facility] CenterJsupmggMGKFDMCOA4559-40-96 10:15:00 Test Item Value Reference Range Interpretation Comments Phosphorus (test code = Phosphorus) 4.2 2.5-4.5 [facility] CenterYungchjMSAAJWMMX8418-78-32 10:15:00 Test Item Value Reference Range Interpretation Comments Ca Ion WB (test code = Ca Ion WB) 1.23 1.05-1.25 [facility] CenterCitepekCXGJJUTSZ2093-66-91 10:15:00 Test Item Value Reference Range Interpretation Comments Ca Ion at pH 7.4 WB (test code = Ca Ion 1.19 1.05-1.25 at pH 7.4 WB) [facility] HospitalSpoyhvzTLINXBNIZE9097-45-87 10:15:00 Test Item Value Reference Range Interpretation Comments WBC (test code = WBC) 10.9 3.7-10.4 [facility] HospitalBonmdrmAXYFOVPNPL6846-45-15 10:15:00 Test Item Value Reference Range Interpretation Comments RBC (test code = RBC) 2.89 4.20-5.40 [facility] HospitalUqwkvgsMVHEPNLWDL6551-72-55 10:15:00 Test Item Value Reference Range Interpretation Comments Hgb (test code = Hgb) 8.2 12.0-16.0 [facility] HospitalIxsiucdWIXUYSUEFT4172-36-61 10:15:00 Test Item Value Reference Range Interpretation Comments Hct (test code = Hct) 24.5 36.0-48.0 [facility] HospitalApcelhdRXRGZEKXYQ5076-02-92 10:15:00 Test Item Value Reference Range Interpretation Comments MCV (test code = MCV) 84.7 80.0-98.0 [facility] HospitalArgntdkHOPIRMAZVQ0334-11-33 10:15:00 Test Item Value Reference Range Interpretation Comments MCH (test code = MCH) 28.4 pg 27.0-31.0 [facility] HospitalSfnhkksXDKUASNMNK6585-10-51 10:15:00 Test Item Value Reference Range Interpretation Comments MCHC (test code = MCHC) 33.5 32.0-36.0 [facility] HospitalMbfmeepRSWKPFOBJY1322-18-92 10:15:00 Test Item Value Reference Range Interpretation Comments RDW (test code = RDW) 13.5 11.5-14.5 [facility] HospitalJyzklouXABXMTBUYN3575-15-21 10:15:00 Test Item Value Reference Range Interpretation Comments Platelet (test code = Platelet) 455 298-071 [facility] HospitalUpnirniJJHAURMJDS3746-93-12 10:15:00 Test Item Value Reference Range Interpretation Comments MPV (test code = MPV) 8.1 7.4-10.4 [facility] HospitalMfrctgzWSEPMTTUQV9680-32-21 10:15:00 Test Item Value Reference Range Interpretation Comments Segs (test code = Segs) 59.9 45.0-75.0 [facility] HospitalPojgixsEVLYNPBINE1695-62-01 10:15:00 Test Item Value Reference Range Interpretation Comments Lymphocytes (test code = Lymphocytes) 31.3 20.0-40.0 [facility] HospitalJoiqhriUDHUROFXZM0064-56-31 10:15:00 Test Item Value Reference Range Interpretation Comments Monocytes (test code = Monocytes) 4.9 2.0-12.0 [facility] HospitalIlteqqpCJBXXFPFNM7193-30-24 10:15:00 Test Item Value Reference Range Interpretation Comments Eosinophils (test code = Eosinophils) 3.3 <=4.0 [facility] HospitalBxfxuzzPNRPFUNEXA6845-27-10 10:15:00 Test Item Value Reference Range Interpretation Comments Basophils (test code = Basophils) 0.6 <=1.0 [facility] HospitalAezjilxYYOZHMWESB0563-68-17 10:15:00 Test Item Value Reference Range Interpretation Comments Neutrophils # (test code = Neutrophils 6.5 1.5-8.1 #) [facility] HospitalDisjaadWPHBIUZSYC4851-31-63 10:15:00 Test Item Value Reference Range Interpretation Comments Lymphocytes # (test code = Lymphocytes 3.4 1.0-5.5 #) [facility] HospitalZabetjaZMWPVWMROJ0906-64-68 10:15:00 Test Item Value Reference Range Interpretation Comments Monocytes # (test code = Monocytes #) 0.5 <=0.8 [place] 406462-10-30 10:15:00 Test Item Value Reference Range Interpretation Comments Eosinophils # (test code = Eosinophils 0.4 <=0.5 #) [facility] HospitalMnblsezYLQDQNQUXJ8176-39-12 10:15:00 Test Item Value Reference Range Interpretation Comments Basophils # (test code = Basophils #) 0.1 <=0.2 [place] 223672-10-30 10:15:00 Test Item Value Reference Range Interpretation Comments Glucose Lvl (test code = Glucose Lvl) 141 70-99 [facility] CenterNeafikdUMOLBLCCE8501-36-24 10:15:00 Test Item Value Reference Range Interpretation Comments BUN (test code = BUN) 12 7-22 [facility] CenterQsjnuqzNWRBVAORU2462-01-24 10:15:00 Test Item Value Reference Range Interpretation Comments Creatinine Lvl (test code = Creatinine 0.42 0.50-1.40 Lvl) [facility] CenterWfroygvTPEPLWHXC3150-48-45 10:15:00 Test Item Value Reference Range Interpretation Comments Sodium Lvl (test code = Sodium Lvl) 135 135-145 [facility] CenterMwbqllpOHWXUIXHF8496-94-02 10:15:00 Test Item Value Reference Range Interpretation Comments Potassium Lvl (test code = Potassium 4.2 3.5-5.1 Lvl) [facility] CenterEgogyleIFQMRUJFV4809-39-25 10:15:00 Test Item Value Reference Range Interpretation Comments Chloride Lvl (test code = Chloride Lvl) 101 95-109 [facility] CenterLqforpfSPPAHVIJL3627-83-39 10:15:00 Test Item Value Reference Range Interpretation Comments CO2 (test code = CO2) 30 24-32 [facility] CenterYzivcklXSPNDKLVC8064-60-11 10:15:00 Test Item Value Reference Range Interpretation Comments AGAP (test code = AGAP) 8.2 10.0-20.0 [facility] CenterQgyfwpeFEILGJJZO5628-73-01 10:15:00 Test Item Value Reference Range Interpretation Comments Calcium Lvl (test code = Calcium Lvl) 8.9 8.5-10.5 [facility] CenterBlpymmkPOGYFRXFT6018-39-66 10:15:00 Test Item Value Reference Range Interpretation Comments eGFR (test code = eGFR) 116 [facility] CenterKeqevtjHTDOONXLS6147-39-91 10:15:00 Test Item Value Reference Range Interpretation Comments Magnesium Lvl (test code = Magnesium 1.9 1.8-2.4 Lvl) [facility] CenterSbuxnogBJJNZNFDZ2597-63-53 10:15:00 Test Item Value Reference Range Interpretation Comments Phosphorus (test code = Phosphorus) 4.2 2.5-4.5 [facility] CenterVpmbpilVDTTZWUQH8162-85-06 10:15:00 Test Item Value Reference Range Interpretation Comments Ca Ion WB (test code = Ca Ion WB) 1.23 1.05-1.25 [facility] CenterJuljotmCZTTSVUVD4344-21-92 10:15:00 Test Item Value Reference Range Interpretation Comments Ca Ion at pH 7.4 WB (test code = Ca Ion 1.19 1.05-1.25 at pH 7.4 WB) [facility] HospitalXkxcfqjZNOGVUBTSB9548-72-64 10:15:00 Test Item Value Reference Range Interpretation Comments WBC (test code = WBC) 10.9 3.7-10.4 [facility] HospitalNgsxtjdMJLQUAMLBB4917-23-67 10:15:00 Test Item Value Reference Range Interpretation Comments RBC (test code = RBC) 2.89 4.20-5.40 [place] 406462-10-30 10:15:00 Test Item Value Reference Range Interpretation Comments Hgb (test code = Hgb) 8.2 12.0-16.0 [place] 406462-10-30 10:15:00 Test Item Value Reference Range Interpretation Comments Hct (test code = Hct) 24.5 36.0-48.0 [place] 406462-10-30 10:15:00 Test Item Value Reference Range Interpretation Comments MCV (test code = MCV) 84.7 80.0-98.0 [place] 406462-10-30 10:15:00 Test Item Value Reference Range Interpretation Comments MCH (test code = MCH) 28.4 pg 27.0-31.0 [facility] HospitalSfjnizdHFVEAIVZPB3911-75-89 10:15:00 Test Item Value Reference Range Interpretation Comments MCHC (test code = MCHC) 33.5 32.0-36.0 [facility] HospitalMwkfdpaRBUGTRUWYD6244-87-30 10:15:00 Test Item Value Reference Range Interpretation Comments RDW (test code = RDW) 13.5 11.5-14.5 [facility] HospitalRbuflmqDWTYIXWWZS4459-74-10 10:15:00 Test Item Value Reference Range Interpretation Comments Platelet (test code = Platelet) 459 751-450 [facility] HospitalEknpzcbBOPHGAJXYN8911-46-16 10:15:00 Test Item Value Reference Range Interpretation Comments MPV (test code = MPV) 8.1 7.4-10.4 [place] 406462-10-30 10:15:00 Test Item Value Reference Range Interpretation Comments Segs (test code = Segs) 59.9 45.0-75.0 [facility] HospitalHjsyrfoHZPFZIODBT7437-92-01 10:15:00 Test Item Value Reference Range Interpretation Comments Lymphocytes (test code = Lymphocytes) 31.3 20.0-40.0 [facility] HospitalAztdqnaVBYIKVOROH5791-63-70 10:15:00 Test Item Value Reference Range Interpretation Comments Monocytes (test code = Monocytes) 4.9 2.0-12.0 [facility] HospitalHnczsobIUDDGRNNWN3635-71-42 10:15:00 Test Item Value Reference Range Interpretation Comments Eosinophils (test code = Eosinophils) 3.3 <=4.0 [facility] HospitalWyfgvurJQJSXCYSQP9326-09-90 10:15:00 Test Item Value Reference Range Interpretation Comments Basophils (test code = Basophils) 0.6 <=1.0 [facility] HospitalVgnarzrHDDNIOSIIJ7046-09-38 10:15:00 Test Item Value Reference Range Interpretation Comments Neutrophils # (test code = Neutrophils 6.5 1.5-8.1 #) [facility] HospitalNuvnfymLPYUYYXPKK3126-83-82 10:15:00 Test Item Value Reference Range Interpretation Comments Lymphocytes # (test code = Lymphocytes 3.4 1.0-5.5 #) [facility] HospitalNxfeqxnSULMAXXTHP8468-87-16 10:15:00 Test Item Value Reference Range Interpretation Comments Monocytes # (test code = Monocytes #) 0.5 <=0.8 [place] 406462-10-30 10:15:00 Test Item Value Reference Range Interpretation Comments Eosinophils # (test code = Eosinophils 0.4 <=0.5 #) [place] 406462-10-30 10:15:00 Test Item Value Reference Range Interpretation Comments Basophils # (test code = Basophils #) 0.1 <=0.2 [facility] CenterZkjphtuQDHQMWPYG9503-97-34 10:15:00 Test Item Value Reference Range Interpretation Comments Glucose Lvl (test code = Glucose Lvl) 141 70-99 [facility] CenterSyclvleHFBKSUESW1944-24-94 10:15:00 Test Item Value Reference Range Interpretation Comments BUN (test code = BUN) 12 7-22 [facility] CenterVwqommyKGGTTQOVI0874-09-59 10:15:00 Test Item Value Reference Range Interpretation Comments Creatinine Lvl (test code = Creatinine 0.42 0.50-1.40 Lvl) [facility] CenterHdlvhafFJAPRWJYB3912-75-23 10:15:00 Test Item Value Reference Range Interpretation Comments Sodium Lvl (test code = Sodium Lvl) 135 135-145 [facility] CenterJzpzlllDHEYDXGYU1775-20-13 10:15:00 Test Item Value Reference Range Interpretation Comments Potassium Lvl (test code = Potassium 4.2 3.5-5.1 Lvl) [facility] CenterGxwpacbOTTPXTLGU6957-07-76 10:15:00 Test Item Value Reference Range Interpretation Comments Chloride Lvl (test code = Chloride Lvl) 101 95-109 [facility] CenterXkiuvbbHROCGCCQY2814-65-74 10:15:00 Test Item Value Reference Range Interpretation Comments CO2 (test code = CO2) 30 24-32 [facility] CenterWwtqbzqTIPTOFAOY2306-00-79 10:15:00 Test Item Value Reference Range Interpretation Comments AGAP (test code = AGAP) 8.2 10.0-20.0 [facility] CenterSdkrjobLUYEOKUOC1290-45-83 10:15:00 Test Item Value Reference Range Interpretation Comments Calcium Lvl (test code = Calcium Lvl) 8.9 8.5-10.5 [facility] CenterKryiosdUIVAZIEGH4647-77-05 10:15:00 Test Item Value Reference Range Interpretation Comments eGFR (test code = eGFR) 116 [facility] CenterEuqjbchJTPFONCMB0958-15-28 10:15:00 Test Item Value Reference Range Interpretation Comments Magnesium Lvl (test code = Magnesium 1.9 1.8-2.4 Lvl) [facility] CenterJvarwxyCQUCQAVEB6282-94-69 10:15:00 Test Item Value Reference Range Interpretation Comments Phosphorus (test code = Phosphorus) 4.2 2.5-4.5 [facility] CenterVnvutyyMOTHWKWDX0864-23-08 10:15:00 Test Item Value Reference Range Interpretation Comments Ca Ion WB (test code = Ca Ion WB) 1.23 1.05-1.25 [facility] CenterCxcnzsvSWBLHUZPT1750-30-35 10:15:00 Test Item Value Reference Range Interpretation Comments Ca Ion at pH 7.4 WB (test code = Ca Ion 1.19 1.05-1.25 at pH 7.4 WB) [facility] HospitalQvftgzsLULTYYOKHN9005-46-14 10:15:00 Test Item Value Reference Range Interpretation Comments WBC (test code = WBC) 10.9 3.7-10.4 [facility] HospitalJpqnmyxZITXIYUSZK4940-63-46 10:15:00 Test Item Value Reference Range Interpretation Comments RBC (test code = RBC) 2.89 4.20-5.40 [facility] HospitalVhjvgxtNNDHOAKTVD6411-07-51 10:15:00 Test Item Value Reference Range Interpretation Comments Hgb (test code = Hgb) 8.2 12.0-16.0 [facility] HospitalIdfvfneWBICJGEBJO8613-51-59 10:15:00 Test Item Value Reference Range Interpretation Comments Hct (test code = Hct) 24.5 36.0-48.0 [facility] HospitalFnjhdccQIPWOAOTFL7104-06-43 10:15:00 Test Item Value Reference Range Interpretation Comments MCV (test code = MCV) 84.7 80.0-98.0 [facility] HospitalZywoknsBIMJXOFESE1993-36-40 10:15:00 Test Item Value Reference Range Interpretation Comments MCH (test code = MCH) 28.4 pg 27.0-31.0 [facility] HospitalNzfcmfzCRPXCELYDI1460-38-41 10:15:00 Test Item Value Reference Range Interpretation Comments MCHC (test code = MCHC) 33.5 32.0-36.0 [facility] HospitalIqvevtrUNCWWFQFSU2450-23-77 10:15:00 Test Item Value Reference Range Interpretation Comments RDW (test code = RDW) 13.5 11.5-14.5 [facility] HospitalOxmcydcCQAUHRMPTA4170-64-41 10:15:00 Test Item Value Reference Range Interpretation Comments Platelet (test code = Platelet) 459 824-450 [facility] HospitalZyxamerAZFFDUMMNZ0435-96-48 10:15:00 Test Item Value Reference Range Interpretation Comments MPV (test code = MPV) 8.1 7.4-10.4 [place] 406462-10-30 10:15:00 Test Item Value Reference Range Interpretation Comments Segs (test code = Segs) 59.9 45.0-75.0 [place] 406462-10-30 10:15:00 Test Item Value Reference Range Interpretation Comments Lymphocytes (test code = Lymphocytes) 31.3 20.0-40.0 [place] 406462-10-30 10:15:00 Test Item Value Reference Range Interpretation Comments Monocytes (test code = Monocytes) 4.9 2.0-12.0 [place] [address]-10-30 10:15:00 Test Item Value Reference Range Interpretation Comments Eosinophils (test code = Eosinophils) 3.3 <=4.0 [place] 406462-10-30 10:15:00 Test Item Value Reference Range Interpretation Comments Basophils (test code = Basophils) 0.6 <=1.0 [place] 406462-10-30 10:15:00 Test Item Value Reference Range Interpretation Comments Neutrophils # (test code = Neutrophils 6.5 1.5-8.1 #) [facility] HospitalQdtyysrUOFTWLSGRJ6377-02-60 10:15:00 Test Item Value Reference Range Interpretation Comments Lymphocytes # (test code = Lymphocytes 3.4 1.0-5.5 #) [facility] HospitalVgvquszOYELLSWGJM9324-72-94 10:15:00 Test Item Value Reference Range Interpretation Comments Monocytes # (test code = Monocytes #) 0.5 <=0.8 [place] 406462-10-30 10:15:00 Test Item Value Reference Range Interpretation Comments Eosinophils # (test code = Eosinophils 0.4 <=0.5 #) [facility] HospitalBpzzivzFUKSTBSLYL0984-81-18 10:15:00 Test Item Value Reference Range Interpretation Comments Basophils # (test code = Basophils #) 0.1 <=0.2 [place] 223672-10-30 10:15:00 Test Item Value Reference Range Interpretation Comments Glucose Lvl (test code = Glucose Lvl) 141 70-99 [facility] CenterSrvgxbsJSDRPVPCR1009-78-10 10:15:00 Test Item Value Reference Range Interpretation Comments BUN (test code = BUN) 12 7-22 [facility] CenterYzvilbiQHZMZSKVZ9092-36-76 10:15:00 Test Item Value Reference Range Interpretation Comments Creatinine Lvl (test code = Creatinine 0.42 0.50-1.40 Lvl) [facility] CenterMplvmdvFGOOOSKDJ5548-84-91 10:15:00 Test Item Value Reference Range Interpretation Comments Sodium Lvl (test code = Sodium Lvl) 135 135-145 [facility] CenterNdumfvsKHCUBFEIN3385-61-25 10:15:00 Test Item Value Reference Range Interpretation Comments Potassium Lvl (test code = Potassium 4.2 3.5-5.1 Lvl) [facility] CenterEedmxujJUMBQXJIH0788-40-95 10:15:00 Test Item Value Reference Range Interpretation Comments Chloride Lvl (test code = Chloride Lvl) 101 95-109 [facility] CenterWcmdxckVEKOFDHIZ8995-12-84 10:15:00 Test Item Value Reference Range Interpretation Comments CO2 (test code = CO2) 30 24-32 [facility] CenterXfzmjfxORBEGFAVN4626-41-29 10:15:00 Test Item Value Reference Range Interpretation Comments AGAP (test code = AGAP) 8.2 10.0-20.0 [facility] CenterTvbiqeqHVIZENMSQ8421-93-76 10:15:00 Test Item Value Reference Range Interpretation Comments Calcium Lvl (test code = Calcium Lvl) 8.9 8.5-10.5 [facility] CenterQssfpuxUHNSRGONE1061-56-57 10:15:00 Test Item Value Reference Range Interpretation Comments eGFR (test code = eGFR) 116 [facility] CenterPrddwweVANIVIUFL2958-80-97 10:15:00 Test Item Value Reference Range Interpretation Comments Magnesium Lvl (test code = Magnesium 1.9 1.8-2.4 Lvl) [facility] CenterYybyeuvKIWIWDFLU6796-96-04 10:15:00 Test Item Value Reference Range Interpretation Comments Phosphorus (test code = Phosphorus) 4.2 2.5-4.5 [facility] CenterYjlkxrkTAYFXZEWQ5067-83-51 10:15:00 Test Item Value Reference Range Interpretation Comments Ca Ion WB (test code = Ca Ion WB) 1.23 1.05-1.25 [facility] CenterSluprqcMTKGKFVFF0773-36-92 10:15:00 Test Item Value Reference Range Interpretation Comments Ca Ion at pH 7.4 WB (test code = Ca Ion 1.19 1.05-1.25 at pH 7.4 WB) [facility] HospitalGcwnypyKMRROHADWM2844-37-46 10:15:00 Test Item Value Reference Range Interpretation Comments WBC (test code = WBC) 10.9 3.7-10.4 [facility] HospitalUvcseonCDEKJCTWJU7726-10-16 10:15:00 Test Item Value Reference Range Interpretation Comments RBC (test code = RBC) 2.89 4.20-5.40 [facility] HospitalTucgxjyYBOAMWRJWA3172-54-09 10:15:00 Test Item Value Reference Range Interpretation Comments Hgb (test code = Hgb) 8.2 12.0-16.0 [place] 406462-10-30 10:15:00 Test Item Value Reference Range Interpretation Comments Hct (test code = Hct) 24.5 36.0-48.0 [facility] HospitalNsafoouUTIHUQEXMV0152-60-45 10:15:00 Test Item Value Reference Range Interpretation Comments MCV (test code = MCV) 84.7 80.0-98.0 [facility] HospitalOdukbfpOMUTADZXMA7189-90-80 10:15:00 Test Item Value Reference Range Interpretation Comments MCH (test code = MCH) 28.4 pg 27.0-31.0 [facility] HospitalSvbrgwyKKWAQNKDLZ1448-25-57 10:15:00 Test Item Value Reference Range Interpretation Comments MCHC (test code = MCHC) 33.5 32.0-36.0 [facility]EcdagtuHLSAFGZEZX0809-18-61 10:15:00 Test Item Value Reference Range Interpretation Comments RDW (test code = RDW) 13.5 11.5-14.5 [facility] HospitalLmdzgioLELXQAFRSG1953-72-01 10:15:00 Test Item Value Reference Range Interpretation Comments Platelet (test code = Platelet) 459 082-450 [facility] HospitalZivfavlUPYVXZGJON4656-65-62 10:15:00 Test Item Value Reference Range Interpretation Comments MPV (test code = MPV) 8.1 7.4-10.4 [facility] HospitalAibyljmWZWBZWOUFB8628-80-40 10:15:00 Test Item Value Reference Range Interpretation Comments Segs (test code = Segs) 59.9 45.0-75.0 [place] 406462-10-30 10:15:00 Test Item Value Reference Range Interpretation Comments Lymphocytes (test code = Lymphocytes) 31.3 20.0-40.0 [place] 406462-10-30 10:15:00 Test Item Value Reference Range Interpretation Comments Monocytes (test code = Monocytes) 4.9 2.0-12.0 [place] [address]-10-30 10:15:00 Test Item Value Reference Range Interpretation Comments Eosinophils (test code = Eosinophils) 3.3 <=4.0 [place] 406462-10-30 10:15:00 Test Item Value Reference Range Interpretation Comments Basophils (test code = Basophils) 0.6 <=1.0 [place] [address]-10-30 10:15:00 Test Item Value Reference Range Interpretation Comments Neutrophils # (test code = Neutrophils 6.5 1.5-8.1 #) [facility] HospitalMbuoperCIQQLKPHNS0094-18-87 10:15:00 Test Item Value Reference Range Interpretation Comments Lymphocytes # (test code = Lymphocytes 3.4 1.0-5.5 #) [facility] HospitalWvpsnbqYJTDTQWTHM9479-88-12 10:15:00 Test Item Value Reference Range Interpretation Comments Monocytes # (test code = Monocytes #) 0.5 <=0.8 [place] 406462-10-30 10:15:00 Test Item Value Reference Range Interpretation Comments Eosinophils # (test code = Eosinophils 0.4 <=0.5 #) [facility] HospitalDijkpadMRISBVEUGA7775-92-29 10:15:00 Test Item Value Reference Range Interpretation Comments Basophils # (test code = Basophils #) 0.1 <=0.2 [place] 223672-10-30 10:15:00 Test Item Value Reference Range Interpretation Comments Glucose Lvl (test code = Glucose Lvl) 141 70-99 [facility] CenterOjksczhBRDSOALZQ1289-00-41 10:15:00 Test Item Value Reference Range Interpretation Comments BUN (test code = BUN) 12 7-22 [place] 223672-10-30 10:15:00 Test Item Value Reference Range Interpretation Comments Creatinine Lvl (test code = Creatinine 0.42 0.50-1.40 Lvl) [facility] CenterStwqxqzIRZNFUBSW6050-36-53 10:15:00 Test Item Value Reference Range Interpretation Comments Sodium Lvl (test code = Sodium Lvl) 135 135-145 [place] 223672-10-30 10:15:00 Test Item Value Reference Range Interpretation Comments Potassium Lvl (test code = Potassium 4.2 3.5-5.1 Lvl) [facility] CenterRuhdiwdMHBEZZCLL4649-46-60 10:15:00 Test Item Value Reference Range Interpretation Comments Chloride Lvl (test code = Chloride Lvl) 101 95-109 [facility] CenterMcxtzjmHNRHXTPHW1069-84-90 10:15:00 Test Item Value Reference Range Interpretation Comments CO2 (test code = CO2) 30 24-32 [facility] CenterTclyiayXVZVXMVRZ9457-08-68 10:15:00 Test Item Value Reference Range Interpretation Comments AGAP (test code = AGAP) 8.2 10.0-20.0 [facility] CenterJsecdhhIVBTLSRZY7372-35-07 10:15:00 Test Item Value Reference Range Interpretation Comments Calcium Lvl (test code = Calcium Lvl) 8.9 8.5-10.5 [facility] CenterGbaybhtKTOLFLJIL8576-95-66 10:15:00 Test Item Value Reference Range Interpretation Comments eGFR (test code = eGFR) 116 [facility] CenterUxegvgcXCUCGMYGJ8963-35-82 10:15:00 Test Item Value Reference Range Interpretation Comments Magnesium Lvl (test code = Magnesium 1.9 1.8-2.4 Lvl) [facility] CenterGzurqarOHPBOIPKZ0506-30-49 10:15:00 Test Item Value Reference Range Interpretation Comments Phosphorus (test code = Phosphorus) 4.2 2.5-4.5 [facility] CenterSzberxsUXKLYIKSE9656-83-70 10:15:00 Test Item Value Reference Range Interpretation Comments Ca Ion WB (test code = Ca Ion WB) 1.23 1.05-1.25 [facility] CenterZqpeedlNDEFJWBOO6707-72-85 10:15:00 Test Item Value Reference Range Interpretation Comments Ca Ion at pH 7.4 WB (test code = Ca Ion 1.19 1.05-1.25 at pH 7.4 WB) [facility] HospitalEmazqgqETHPJIQSVQ6235-23-03 10:15:00 Test Item Value Reference Range Interpretation Comments WBC (test code = WBC) 10.9 3.7-10.4 [facility] HospitalLgbryepPIJDAKEGVV5231-91-57 10:15:00 Test Item Value Reference Range Interpretation Comments RBC (test code = RBC) 2.89 4.20-5.40 [facility] HospitalJolmdklASYGRBDLXN1171-94-03 10:15:00 Test Item Value Reference Range Interpretation Comments Hgb (test code = Hgb) 8.2 12.0-16.0 [facility] HospitalYqbambbRRLXBXGUDM0018-18-44 10:15:00 Test Item Value Reference Range Interpretation Comments Hct (test code = Hct) 24.5 36.0-48.0 [facility] HospitalAfjmtznXOLCXYZACN7931-77-29 10:15:00 Test Item Value Reference Range Interpretation Comments MCV (test code = MCV) 84.7 80.0-98.0 [facility] HospitalDbqigrrOHIMDYMDYG7141-39-15 10:15:00 Test Item Value Reference Range Interpretation Comments MCH (test code = MCH) 28.4 pg 27.0-31.0 [facility] HospitalRginomnEWLCKMBTWM7497-83-53 10:15:00 Test Item Value Reference Range Interpretation Comments MCHC (test code = MCHC) 33.5 32.0-36.0 [facility] HospitalWzasrvaKLHMOIADCC3454-49-83 10:15:00 Test Item Value Reference Range Interpretation Comments RDW (test code = RDW) 13.5 11.5-14.5 [facility] HospitalCuugyaeRBWDVBIFWS6360-29-77 10:15:00 Test Item Value Reference Range Interpretation Comments Platelet (test code = Platelet) 450 605-827 [facility] HospitalSiksttyIKYPVHOEMN5416-52-93 10:15:00 Test Item Value Reference Range Interpretation Comments MPV (test code = MPV) 8.1 7.4-10.4 [facility] HospitalOrvpeloVCSAVDSIVD7558-31-69 10:15:00 Test Item Value Reference Range Interpretation Comments Segs (test code = Segs) 59.9 45.0-75.0 [facility] HospitalJcrbrfkJAPGGMRRDA5048-66-59 10:15:00 Test Item Value Reference Range Interpretation Comments Lymphocytes (test code = Lymphocytes) 31.3 20.0-40.0 [facility] HospitalKgvsjwoAZATZBXNDW8700-34-42 10:15:00 Test Item Value Reference Range Interpretation Comments Monocytes (test code = Monocytes) 4.9 2.0-12.0 [facility] HospitalZlecivuJRRQDMBPOD1533-94-68 10:15:00 Test Item Value Reference Range Interpretation Comments Eosinophils (test code = Eosinophils) 3.3 <=4.0 [facility] HospitalXqkdfhlGKSXEGOSIL0165-77-44 10:15:00 Test Item Value Reference Range Interpretation Comments Basophils (test code = Basophils) 0.6 <=1.0 [facility] HospitalVeequteRZBTCVPAGR1428-77-78 10:15:00 Test Item Value Reference Range Interpretation Comments Neutrophils # (test code = Neutrophils 6.5 1.5-8.1 #) [facility] HospitalXqknphjGZPPDJOHZB0906-38-92 10:15:00 Test Item Value Reference Range Interpretation Comments Lymphocytes # (test code = Lymphocytes 3.4 1.0-5.5 #) [facility] HospitalMncysqaKVKUXCAZVZ2179-96-03 10:15:00 Test Item Value Reference Range Interpretation Comments Monocytes # (test code = Monocytes #) 0.5 <=0.8 [place] 406462-10-30 10:15:00 Test Item Value Reference Range Interpretation Comments Eosinophils # (test code = Eosinophils 0.4 <=0.5 #) [facility] HospitalJaxhykxITSBJFAZCQ3393-94-25 10:15:00 Test Item Value Reference Range Interpretation Comments Basophils # (test code = Basophils #) 0.1 <=0.2 [place] 223672-10-30 10:15:00 Test Item Value Reference Range Interpretation Comments Glucose Lvl (test code = Glucose Lvl) 141 70-99 [facility] CenterGfkirxfOBXOJIGMJ0054-01-94 10:15:00 Test Item Value Reference Range Interpretation Comments BUN (test code = BUN) 12 7-22 [facility] CenterVohqkvnODHOLIDAE6799-56-91 10:15:00 Test Item Value Reference Range Interpretation Comments Creatinine Lvl (test code = Creatinine 0.42 0.50-1.40 Lvl) [facility] CenterQlqtjxyGBEYLXAGC1577-92-78 10:15:00 Test Item Value Reference Range Interpretation Comments Sodium Lvl (test code = Sodium Lvl) 135 135-145 [facility] CenterFlnomgzSXHJRPWPG1608-15-86 10:15:00 Test Item Value Reference Range Interpretation Comments Potassium Lvl (test code = Potassium 4.2 3.5-5.1 Lvl) [facility] CenterMukrtuzPGBMOHXIE1823-40-39 10:15:00 Test Item Value Reference Range Interpretation Comments Chloride Lvl (test code = Chloride Lvl) 101 95-109 [facility] CenterXkpcgxsKFOUIDRET6347-76-56 10:15:00 Test Item Value Reference Range Interpretation Comments CO2 (test code = CO2) 30 24-32 [facility] CenterNfebmudQISOIKBRM6031-14-29 10:15:00 Test Item Value Reference Range Interpretation Comments AGAP (test code = AGAP) 8.2 10.0-20.0 [facility] CenterSwoihysILULLVKAD7527-63-25 10:15:00 Test Item Value Reference Range Interpretation Comments Calcium Lvl (test code = Calcium Lvl) 8.9 8.5-10.5 [facility] CenterUhtespjINRPKVKMD2777-48-99 10:15:00 Test Item Value Reference Range Interpretation Comments eGFR (test code = eGFR) 116 [facility] CenterKzsttsuPELEBGSHJ4091-64-09 10:15:00 Test Item Value Reference Range Interpretation Comments Magnesium Lvl (test code = Magnesium 1.9 1.8-2.4 Lvl) [facility] CenterDtnuyqkVHUSTHNYA6712-42-21 10:15:00 Test Item Value Reference Range Interpretation Comments Phosphorus (test code = Phosphorus) 4.2 2.5-4.5 [facility] CenterKmhdfshFRVSTPJER9506-59-16 10:15:00 Test Item Value Reference Range Interpretation Comments Ca Ion WB (test code = Ca Ion WB) 1.23 1.05-1.25 [facility] CenterGefriceWIBANUTCA9325-76-11 10:15:00 Test Item Value Reference Range Interpretation Comments Ca Ion at pH 7.4 WB (test code = Ca Ion 1.19 1.05-1.25 at pH 7.4 WB) [facility] HospitalWrcemkgEUPIZXUMRQ1154-37-73 10:15:00 Test Item Value Reference Range Interpretation Comments WBC (test code = WBC) 10.9 3.7-10.4 [facility] HospitalWqbujoqLGICPJXGUN8731-50-60 10:15:00 Test Item Value Reference Range Interpretation Comments RBC (test code = RBC) 2.89 4.20-5.40 [place] 406462-10-30 10:15:00 Test Item Value Reference Range Interpretation Comments Hgb (test code = Hgb) 8.2 12.0-16.0 [place] 406462-10-30 10:15:00 Test Item Value Reference Range Interpretation Comments Hct (test code = Hct) 24.5 36.0-48.0 [place] 406462-10-30 10:15:00 Test Item Value Reference Range Interpretation Comments MCV (test code = MCV) 84.7 80.0-98.0 [place] 406462-10-30 10:15:00 Test Item Value Reference Range Interpretation Comments MCH (test code = MCH) 28.4 pg 27.0-31.0 [facility] HospitalIgwtlinXGUODWKDSU6615-66-83 10:15:00 Test Item Value Reference Range Interpretation Comments MCHC (test code = MCHC) 33.5 32.0-36.0 [facility] HospitalFcnaoasQHDIIQFLLK9858-35-96 10:15:00 Test Item Value Reference Range Interpretation Comments RDW (test code = RDW) 13.5 11.5-14.5 [facility] HospitalZlmhzcuIKXZZEWRQD2299-37-14 10:15:00 Test Item Value Reference Range Interpretation Comments Platelet (test code = Platelet) 459 103-450 [facility] HospitalIhkevnaOLMZDRPTKJ0574-14-62 10:15:00 Test Item Value Reference Range Interpretation Comments MPV (test code = MPV) 8.1 7.4-10.4 [place] 406462-10-30 10:15:00 Test Item Value Reference Range Interpretation Comments Segs (test code = Segs) 59.9 45.0-75.0 [facility] HospitalNvdpqpiJXBRQNQBMJ8860-14-78 10:15:00 Test Item Value Reference Range Interpretation Comments Lymphocytes (test code = Lymphocytes) 31.3 20.0-40.0 [facility] HospitalJnwaqmbLEMCIWCAYN1893-39-52 10:15:00 Test Item Value Reference Range Interpretation Comments Monocytes (test code = Monocytes) 4.9 2.0-12.0 [facility] HospitalBzockqdPAIDFNNCPQ8155-30-90 10:15:00 Test Item Value Reference Range Interpretation Comments Eosinophils (test code = Eosinophils) 3.3 <=4.0 [facility] HospitalGbofknaKOPJGMZSHX9599-44-70 10:15:00 Test Item Value Reference Range Interpretation Comments Basophils (test code = Basophils) 0.6 <=1.0 [facility] HospitalOsouslbMWICUTXRSI1860-05-68 10:15:00 Test Item Value Reference Range Interpretation Comments Neutrophils # (test code = Neutrophils 6.5 1.5-8.1 #) [facility] HospitalOfbkvrlULZMXFMNSH3145-08-51 10:15:00 Test Item Value Reference Range Interpretation Comments Lymphocytes # (test code = Lymphocytes 3.4 1.0-5.5 #) [facility] HospitalJwzkvsrWRKOBOTSTN3659-43-30 10:15:00 Test Item Value Reference Range Interpretation Comments Monocytes # (test code = Monocytes #) 0.5 <=0.8 [place] 406462-10-30 10:15:00 Test Item Value Reference Range Interpretation Comments Eosinophils # (test code = Eosinophils 0.4 <=0.5 #) [place] 406462-10-30 10:15:00 Test Item Value Reference Range Interpretation Comments Basophils # (test code = Basophils #) 0.1 <=0.2 [facility] CenterVxfvyuiJFKLGYDQI8561-09-08 10:15:00 Test Item Value Reference Range Interpretation Comments Glucose Lvl (test code = Glucose Lvl) 141 70-99 [facility] CenterCzrhvxjKPZRKOOCA7109-43-54 10:15:00 Test Item Value Reference Range Interpretation Comments BUN (test code = BUN) 12 7-22 [facility] CenterYtcioxtAMQAHFYXD0041-85-42 10:15:00 Test Item Value Reference Range Interpretation Comments Creatinine Lvl (test code = Creatinine 0.42 0.50-1.40 Lvl) [facility] CenterPyfydipPQDBUVMHC2955-05-68 10:15:00 Test Item Value Reference Range Interpretation Comments Sodium Lvl (test code = Sodium Lvl) 135 135-145 [facility] CenterOkgyjtrLDWHNQRFK5698-70-60 10:15:00 Test Item Value Reference Range Interpretation Comments Potassium Lvl (test code = Potassium 4.2 3.5-5.1 Lvl) [facility] CenterJkaekulXUBWAFUML5945-98-50 10:15:00 Test Item Value Reference Range Interpretation Comments Chloride Lvl (test code = Chloride Lvl) 101 95-109 [facility] CenterWxxhckgEQODNVYYQ1650-19-90 10:15:00 Test Item Value Reference Range Interpretation Comments CO2 (test code = CO2) 30 24-32 [facility] CenterHxtnocaPOOREMQOU8029-59-90 10:15:00 Test Item Value Reference Range Interpretation Comments AGAP (test code = AGAP) 8.2 10.0-20.0 [facility] CenterBglbkcaPLIWABYTY8555-15-47 10:15:00 Test Item Value Reference Range Interpretation Comments Calcium Lvl (test code = Calcium Lvl) 8.9 8.5-10.5 [facility] CenterIijuzlsTCREMHEHD1135-64-75 10:15:00 Test Item Value Reference Range Interpretation Comments eGFR (test code = eGFR) 116 [facility] CenterOveesisQGXZLLGOL9561-97-33 10:15:00 Test Item Value Reference Range Interpretation Comments Magnesium Lvl (test code = Magnesium 1.9 1.8-2.4 Lvl) [facility] CenterSwjxiyeLHQXXNRQL7067-87-02 10:15:00 Test Item Value Reference Range Interpretation Comments Phosphorus (test code = Phosphorus) 4.2 2.5-4.5 [facility] CenterCzqftdrZECTFQVRK8273-83-90 10:15:00 Test Item Value Reference Range Interpretation Comments Ca Ion WB (test code = Ca Ion WB) 1.23 1.05-1.25 [facility] CenterMwtrmawFOTYNWLRF3871-27-29 10:15:00 Test Item Value Reference Range Interpretation Comments Ca Ion at pH 7.4 WB (test code = Ca Ion 1.19 1.05-1.25 at pH 7.4 WB) [facility] HospitalEzwdbwdRMZPQXIQOT1606-39-71 10:15:00 Test Item Value Reference Range Interpretation Comments WBC (test code = WBC) 10.9 3.7-10.4 [facility] HospitalWzfwjuoAYSAUNIIZS6275-64-18 10:15:00 Test Item Value Reference Range Interpretation Comments RBC (test code = RBC) 2.89 4.20-5.40 [facility] HospitalDduiiszEILQKVECEQ0824-71-80 10:15:00 Test Item Value Reference Range Interpretation Comments Hgb (test code = Hgb) 8.2 12.0-16.0 [facility] HospitalPmzsrxyBSKFWSRRRF7754-32-86 10:15:00 Test Item Value Reference Range Interpretation Comments Hct (test code = Hct) 24.5 36.0-48.0 [facility] HospitalBzmpvwcTTNOUIFDUG1111-30-79 10:15:00 Test Item Value Reference Range Interpretation Comments MCV (test code = MCV) 84.7 80.0-98.0 [facility] HospitalArjtazeUDEVAHLRGL6802-59-24 10:15:00 Test Item Value Reference Range Interpretation Comments MCH (test code = MCH) 28.4 pg 27.0-31.0 [facility] HospitalYninjfmAUMFFUVUGH1355-97-04 10:15:00 Test Item Value Reference Range Interpretation Comments MCHC (test code = MCHC) 33.5 32.0-36.0 [facility] HospitalUpzclmiYVJDTMNSIW9510-69-92 10:15:00 Test Item Value Reference Range Interpretation Comments RDW (test code = RDW) 13.5 11.5-14.5 [facility] HospitalSfjqdzqPLRARLJNCL6438-97-13 10:15:00 Test Item Value Reference Range Interpretation Comments Platelet (test code = Platelet) 459 496-450 [facility] HospitalKkoflrwLTZWYJCQFE4524-59-67 10:15:00 Test Item Value Reference Range Interpretation Comments MPV (test code = MPV) 8.1 7.4-10.4 [place] 406462-10-30 10:15:00 Test Item Value Reference Range Interpretation Comments Segs (test code = Segs) 59.9 45.0-75.0 [place] 406462-10-30 10:15:00 Test Item Value Reference Range Interpretation Comments Lymphocytes (test code = Lymphocytes) 31.3 20.0-40.0 [place] 406462-10-30 10:15:00 Test Item Value Reference Range Interpretation Comments Monocytes (test code = Monocytes) 4.9 2.0-12.0 [place] [address]-10-30 10:15:00 Test Item Value Reference Range Interpretation Comments Eosinophils (test code = Eosinophils) 3.3 <=4.0 [place] 406462-10-30 10:15:00 Test Item Value Reference Range Interpretation Comments Basophils (test code = Basophils) 0.6 <=1.0 [place] 406462-10-30 10:15:00 Test Item Value Reference Range Interpretation Comments Neutrophils # (test code = Neutrophils 6.5 1.5-8.1 #) [facility] HospitalBprzwcpJRRSKGKUJS1425-27-85 10:15:00 Test Item Value Reference Range Interpretation Comments Lymphocytes # (test code = Lymphocytes 3.4 1.0-5.5 #) [facility] HospitalGmxinntYLBSLIBLYV3012-63-93 10:15:00 Test Item Value Reference Range Interpretation Comments Monocytes # (test code = Monocytes #) 0.5 <=0.8 [place] 406462-10-30 10:15:00 Test Item Value Reference Range Interpretation Comments Eosinophils # (test code = Eosinophils 0.4 <=0.5 #) [facility] HospitalRmumnjeZUVZKFAZOR7202-70-33 10:15:00 Test Item Value Reference Range Interpretation Comments Basophils # (test code = Basophils #) 0.1 <=0.2 [place] 223672-10-30 10:15:00 Test Item Value Reference Range Interpretation Comments Glucose Lvl (test code = Glucose Lvl) 141 70-99 [facility] CenterGaeiftjAZIJAQJQY3184-36-87 10:15:00 Test Item Value Reference Range Interpretation Comments BUN (test code = BUN) 12 7-22 [facility] CenterHyckvmqNDMFEFHZO9988-59-09 10:15:00 Test Item Value Reference Range Interpretation Comments Creatinine Lvl (test code = Creatinine 0.42 0.50-1.40 Lvl) [facility] CenterOasuxogKUBVSZMZP7691-72-02 10:15:00 Test Item Value Reference Range Interpretation Comments Sodium Lvl (test code = Sodium Lvl) 135 135-145 [facility] CenterFeetkhtMEKJINPFE8413-86-85 10:15:00 Test Item Value Reference Range Interpretation Comments Potassium Lvl (test code = Potassium 4.2 3.5-5.1 Lvl) [facility] CenterIkrgnhfSGVIXDDAT0369-90-39 10:15:00 Test Item Value Reference Range Interpretation Comments Chloride Lvl (test code = Chloride Lvl) 101 95-109 [facility] CenterOjcyemeLDZGOOFKC0383-81-15 10:15:00 Test Item Value Reference Range Interpretation Comments CO2 (test code = CO2) 30 24-32 [facility] CenterWwgvgjyKKMJBXKNS7828-02-28 10:15:00 Test Item Value Reference Range Interpretation Comments AGAP (test code = AGAP) 8.2 10.0-20.0 [facility] CenterRxmdjgfGCILWWUUA0752-70-60 10:15:00 Test Item Value Reference Range Interpretation Comments Calcium Lvl (test code = Calcium Lvl) 8.9 8.5-10.5 [facility] CenterSlftapuNFUKAGUMI0355-30-66 10:15:00 Test Item Value Reference Range Interpretation Comments eGFR (test code = eGFR) 116 [facility] CenterFnpvtaiLKYCHADQF6022-29-08 10:15:00 Test Item Value Reference Range Interpretation Comments Magnesium Lvl (test code = Magnesium 1.9 1.8-2.4 Lvl) [facility] CenterMrftnhxPNUJRUTYS5847-52-80 10:15:00 Test Item Value Reference Range Interpretation Comments Phosphorus (test code = Phosphorus) 4.2 2.5-4.5 [facility] CenterSaxdodeXNTHDSQLM9570-02-33 10:15:00 Test Item Value Reference Range Interpretation Comments Ca Ion WB (test code = Ca Ion WB) 1.23 1.05-1.25 [facility] CenterTvtucwiSSBWNPUNP7575-82-86 10:15:00 Test Item Value Reference Range Interpretation Comments Ca Ion at pH 7.4 WB (test code = Ca Ion 1.19 1.05-1.25 at pH 7.4 WB) [facility] HospitalKfkstoxIBVUFXBANU3453-78-69 10:15:00 Test Item Value Reference Range Interpretation Comments WBC (test code = WBC) 10.9 3.7-10.4 [facility] HospitalHomcfxjCCTKQOSPPO6417-78-76 10:15:00 Test Item Value Reference Range Interpretation Comments RBC (test code = RBC) 2.89 4.20-5.40 [facility] HospitalYlbybnwMOVLVAZCBQ5566-30-00 10:15:00 Test Item Value Reference Range Interpretation Comments Hgb (test code = Hgb) 8.2 12.0-16.0 [place] 406462-10-30 10:15:00 Test Item Value Reference Range Interpretation Comments Hct (test code = Hct) 24.5 36.0-48.0 [facility] HospitalKwxyoypMTEUNNSUCP7540-31-93 10:15:00 Test Item Value Reference Range Interpretation Comments MCV (test code = MCV) 84.7 80.0-98.0 [facility] HospitalIzltnumYEKDSZKYNM6868-37-77 10:15:00 Test Item Value Reference Range Interpretation Comments MCH (test code = MCH) 28.4 pg 27.0-31.0 [facility] HospitalUpraakxOIWPYCASTX5766-49-61 10:15:00 Test Item Value Reference Range Interpretation Comments MCHC (test code = MCHC) 33.5 32.0-36.0 [facility] HospitalImfpfglCICGHQEOQY1575-97-17 10:15:00 Test Item Value Reference Range Interpretation Comments RDW (test code = RDW) 13.5 11.5-14.5 [facility] HospitalUngahwbGLZCWTBHAY1014-54-36 10:15:00 Test Item Value Reference Range Interpretation Comments Platelet (test code = Platelet) 459 025-450 [facility] HospitalNgqcktdOGRVIDTBUS0050-50-07 10:15:00 Test Item Value Reference Range Interpretation Comments MPV (test code = MPV) 8.1 7.4-10.4 [facility] HospitalOrdrdiiDZDFTXSUBT5194-36-76 10:15:00 Test Item Value Reference Range Interpretation Comments Segs (test code = Segs) 59.9 45.0-75.0 [place] 406462-10-30 10:15:00 Test Item Value Reference Range Interpretation Comments Lymphocytes (test code = Lymphocytes) 31.3 20.0-40.0 [place] 406462-10-30 10:15:00 Test Item Value Reference Range Interpretation Comments Monocytes (test code = Monocytes) 4.9 2.0-12.0 [place] [address]-10-30 10:15:00 Test Item Value Reference Range Interpretation Comments Eosinophils (test code = Eosinophils) 3.3 <=4.0 [place] 406462-10-30 10:15:00 Test Item Value Reference Range Interpretation Comments Basophils (test code = Basophils) 0.6 <=1.0 [place] [address]-10-30 10:15:00 Test Item Value Reference Range Interpretation Comments Neutrophils # (test code = Neutrophils 6.5 1.5-8.1 #) [facility] HospitalIplxdwzDOJPDDFMCR1419-78-52 10:15:00 Test Item Value Reference Range Interpretation Comments Lymphocytes # (test code = Lymphocytes 3.4 1.0-5.5 #) [facility] HospitalQlmevzuNWRAUKPPHY7621-44-44 10:15:00 Test Item Value Reference Range Interpretation Comments Monocytes # (test code = Monocytes #) 0.5 <=0.8 [place] 406462-10-30 10:15:00 Test Item Value Reference Range Interpretation Comments Eosinophils # (test code = Eosinophils 0.4 <=0.5 #) [facility]DoqouqiCYWUMYQLJC7038-93-80 10:15:00 Test Item Value Reference Range Interpretation Comments Basophils # (test code = Basophils #) 0.1 <=0.2 [place] 223672-10-30 10:15:00 Test Item Value Reference Range Interpretation Comments Glucose Lvl (test code = Glucose Lvl) 141 70-99 [facility]XbgmladLSRKNRPWI8061-21-21 10:15:00 Test Item Value Reference Range Interpretation Comments BUN (test code = BUN) 12 7-22 [place] 223672-10-30 10:15:00 Test Item Value Reference Range Interpretation Comments Creatinine Lvl (test code = Creatinine 0.42 0.50-1.40 Lvl) [facility] CenterLkgzpwiJQLYKDMMK8685-97-50 10:15:00 Test Item Value Reference Range Interpretation Comments Sodium Lvl (test code = Sodium Lvl) 135 135-145 [place] 223672-10-30 10:15:00 Test Item Value Reference Range Interpretation Comments Potassium Lvl (test code = Potassium 4.2 3.5-5.1 Lvl) [facility] CenterSwnrmsmRKABVNHEQ7289-29-15 10:15:00 Test Item Value Reference Range Interpretation Comments Chloride Lvl (test code = Chloride Lvl) 101 95-109 [facility] CenterSzaazgmKHYWMMFCL7740-82-77 10:15:00 Test Item Value Reference Range Interpretation Comments CO2 (test code = CO2) 30 24-32 [facility] CenterFtumdvyJPVXCGYSM0571-65-55 10:15:00 Test Item Value Reference Range Interpretation Comments AGAP (test code = AGAP) 8.2 10.0-20.0 [facility] CenterEujktiiULYCMBKMA2128-33-43 10:15:00 Test Item Value Reference Range Interpretation Comments Calcium Lvl (test code = Calcium Lvl) 8.9 8.5-10.5 [facility] CenterKfldwnzBPUSWFFBI7616-98-97 10:15:00 Test Item Value Reference Range Interpretation Comments eGFR (test code = eGFR) 116 [facility] CenterFiiztvaKPXSECMGK9044-84-49 10:15:00 Test Item Value Reference Range Interpretation Comments Magnesium Lvl (test code = Magnesium 1.9 1.8-2.4 Lvl) [facility] CenterZiagqyhHUEFQJWFH3998-21-81 10:15:00 Test Item Value Reference Range Interpretation Comments Phosphorus (test code = Phosphorus) 4.2 2.5-4.5 [facility] CenterGwvlvcjGZWNQWTDI2074-75-20 10:15:00 Test Item Value Reference Range Interpretation Comments Ca Ion WB (test code = Ca Ion WB) 1.23 1.05-1.25 [facility] CenterWbzuvetDDHOASELQ8436-78-25 10:15:00 Test Item Value Reference Range Interpretation Comments Ca Ion at pH 7.4 WB (test code = Ca Ion 1.19 1.05-1.25 at pH 7.4 WB) [facility] HospitalDbgpvwgDRNUEGCBUB1910-53-84 10:15:00 Test Item Value Reference Range Interpretation Comments WBC (test code = WBC) 10.9 3.7-10.4 [facility] HospitalGnngpbgTQXTVWIQSB2329-61-19 10:15:00 Test Item Value Reference Range Interpretation Comments RBC (test code = RBC) 2.89 4.20-5.40 [facility] HospitalSjobyfkKRZWQZIECB9724-50-38 10:15:00 Test Item Value Reference Range Interpretation Comments Hgb (test code = Hgb) 8.2 12.0-16.0 [facility] HospitalTbgyapkNXOFOGCKVC7522-99-21 10:15:00 Test Item Value Reference Range Interpretation Comments Hct (test code = Hct) 24.5 36.0-48.0 [facility] HospitalLgobzwoESCGXOVBGZ9556-25-24 10:15:00 Test Item Value Reference Range Interpretation Comments MCV (test code = MCV) 84.7 80.0-98.0 [facility] HospitalFmrichmYSOIIULCQQ1038-92-95 10:15:00 Test Item Value Reference Range Interpretation Comments MCH (test code = MCH) 28.4 pg 27.0-31.0 [facility] HospitalRzrrvhxVHCVQSSPGY6918-61-67 10:15:00 Test Item Value Reference Range Interpretation Comments MCHC (test code = MCHC) 33.5 32.0-36.0 [facility] HospitalPckshdyFSIFQIWSKM0338-99-73 10:15:00 Test Item Value Reference Range Interpretation Comments RDW (test code = RDW) 13.5 11.5-14.5 [facility] HospitalPlwrukySPHAGJVODL8252-47-74 10:15:00 Test Item Value Reference Range Interpretation Comments Platelet (test code = Platelet) 457 825-897 [facility] HospitalKondkqzKFJWITOHET0115-26-72 10:15:00 Test Item Value Reference Range Interpretation Comments MPV (test code = MPV) 8.1 7.4-10.4 [facility] HospitalGxasxvfXVJFHELRVI1510-10-30 10:15:00 Test Item Value Reference Range Interpretation Comments Segs (test code = Segs) 59.9 45.0-75.0 [facility] HospitalSfckkskPQOEKEHMKP3402-59-36 10:15:00 Test Item Value Reference Range Interpretation Comments Lymphocytes (test code = Lymphocytes) 31.3 20.0-40.0 [facility] HospitalFuubegxJFNLMNMFDP4346-07-49 10:15:00 Test Item Value Reference Range Interpretation Comments Monocytes (test code = Monocytes) 4.9 2.0-12.0 [facility] HospitalPbelhpqFDTXBDZDEU2800-45-12 10:15:00 Test Item Value Reference Range Interpretation Comments Eosinophils (test code = Eosinophils) 3.3 <=4.0 [facility] HospitalWxcdutnRIUMDFFNDA0716-96-65 10:15:00 Test Item Value Reference Range Interpretation Comments Basophils (test code = Basophils) 0.6 <=1.0 [facility] HospitalFskxpahIPCWQWYYXG1847-48-01 10:15:00 Test Item Value Reference Range Interpretation Comments Neutrophils # (test code = Neutrophils 6.5 1.5-8.1 #) [facility] HospitalSzorkdqUHTYEVSVTY9127-67-36 10:15:00 Test Item Value Reference Range Interpretation Comments Lymphocytes # (test code = Lymphocytes 3.4 1.0-5.5 #) [facility] HospitalWlbwupzUQOJBKFDLQ4459-93-18 10:15:00 Test Item Value Reference Range Interpretation Comments Monocytes # (test code = Monocytes #) 0.5 <=0.8 [place] 406462-10-30 10:15:00 Test Item Value Reference Range Interpretation Comments Eosinophils # (test code = Eosinophils 0.4 <=0.5 #) [facility] HospitalQqzxxqlQWJZTBBWCL6340-64-91 10:15:00 Test Item Value Reference Range Interpretation Comments Basophils # (test code = Basophils #) 0.1 <=0.2 [place] 223672-10-30 10:15:00 Test Item Value Reference Range Interpretation Comments Glucose Lvl (test code = Glucose Lvl) 141 70-99 [facility] CenterBqncrocRVBXOHKPD4641-70-08 10:15:00 Test Item Value Reference Range Interpretation Comments BUN (test code = BUN) 12 7-22 [facility] CenterZmllvxcSWGLMMPXX3833-89-12 10:15:00 Test Item Value Reference Range Interpretation Comments Creatinine Lvl (test code = Creatinine 0.42 0.50-1.40 Lvl) [facility] CenterCdfzznnGQNSLIBZF4141-62-35 10:15:00 Test Item Value Reference Range Interpretation Comments Sodium Lvl (test code = Sodium Lvl) 135 135-145 [facility] CenterArsziamNIECFLWMM3502-01-55 10:15:00 Test Item Value Reference Range Interpretation Comments Potassium Lvl (test code = Potassium 4.2 3.5-5.1 Lvl) [facility] CenterMwkewzuUTAYNZJBY6305-23-21 10:15:00 Test Item Value Reference Range Interpretation Comments Chloride Lvl (test code = Chloride Lvl) 101 95-109 [facility] CenterKwtncklOLFEGIAQW2415-14-00 10:15:00 Test Item Value Reference Range Interpretation Comments CO2 (test code = CO2) 30 24-32 [facility] CenterJnelkdnDBYLYIIZA7303-90-02 10:15:00 Test Item Value Reference Range Interpretation Comments AGAP (test code = AGAP) 8.2 10.0-20.0 [facility] CenterBlecsotNZHHKCHOV9136-40-48 10:15:00 Test Item Value Reference Range Interpretation Comments Calcium Lvl (test code = Calcium Lvl) 8.9 8.5-10.5 [facility] CenterEfhdevxKVJBBYSSI2654-31-63 10:15:00 Test Item Value Reference Range Interpretation Comments eGFR (test code = eGFR) 116 [facility] CenterXtffeumEVWCYNHWS8595-78-75 10:15:00 Test Item Value Reference Range Interpretation Comments Magnesium Lvl (test code = Magnesium 1.9 1.8-2.4 Lvl) [facility] CenterOrboeiyVLNLUACWR2058-52-41 10:15:00 Test Item Value Reference Range Interpretation Comments Phosphorus (test code = Phosphorus) 4.2 2.5-4.5 [facility] CenterTyuasmnKKBOSZWOY5544-17-83 10:15:00 Test Item Value Reference Range Interpretation Comments Ca Ion WB (test code = Ca Ion WB) 1.23 1.05-1.25 [facility] CenterScznbfmYAUONATFZ7822-47-95 10:15:00 Test Item Value Reference Range Interpretation Comments Ca Ion at pH 7.4 WB (test code = Ca Ion 1.19 1.05-1.25 at pH 7.4 WB) [facility] CenterZbguylrVOJEZHTUI2051-85-30 10:15:00 Test Item Value Reference Range Interpretation Comments Glucose Lvl (test code = Glucose Lvl) 141 70-99 [facility] CenterGeidpfbRTGJWFHLB8852-20-21 10:15:00 Test Item Value Reference Range Interpretation Comments BUN (test code = BUN) 12 7-22 [facility] CenterNyfnslnARRNWNKSW2446-46-70 10:15:00 Test Item Value Reference Range Interpretation Comments Creatinine Lvl (test code = Creatinine 0.42 0.50-1.40 Lvl) [facility] CenterKsdqlkxIALIWIGTX1794-58-86 10:15:00 Test Item Value Reference Range Interpretation Comments Sodium Lvl (test code = Sodium Lvl) 135 135-145 [facility] CenterAlydazaFWWXETCUS3786-02-29 10:15:00 Test Item Value Reference Range Interpretation Comments Potassium Lvl (test code = Potassium 4.2 3.5-5.1 Lvl) [facility] CenterOtuhgjyBTDMQAYUX6049-24-84 10:15:00 Test Item Value Reference Range Interpretation Comments Chloride Lvl (test code = Chloride Lvl) 101 95-109 [facility] CenterVpowaoyNEEJSFTQU6532-57-32 10:15:00 Test Item Value Reference Range Interpretation Comments CO2 (test code = CO2) 30 24-32 [place] 406462-10-30 10:15:00 Test Item Value Reference Range Interpretation Comments WBC (test code = WBC) 10.9 3.7-10.4 [facility] CenterEtoysklGYBUBYVDZ1735-49-08 10:15:00 Test Item Value Reference Range Interpretation Comments AGAP (test code = AGAP) 8.2 10.0-20.0 [facility] CenterTjrwftmWRZVPWNFU4079-40-40 10:15:00 Test Item Value Reference Range Interpretation Comments Calcium Lvl (test code = Calcium Lvl) 8.9 8.5-10.5 [facility] CenterOalmzqtEBLWRZSFR5134-58-01 10:15:00 Test Item Value Reference Range Interpretation Comments eGFR (test code = eGFR) 116 [facility] CenterCzzntkbOJZYSBHGT1136-21-02 10:15:00 Test Item Value Reference Range Interpretation Comments Magnesium Lvl (test code = Magnesium 1.9 1.8-2.4 Lvl) [facility] CenterHlgkfnlAYRKGYAQH8035-62-60 10:15:00 Test Item Value Reference Range Interpretation Comments Phosphorus (test code = Phosphorus) 4.2 2.5-4.5 [facility] CenterBakhovrMNQHBMOPK6243-23-33 10:15:00 Test Item Value Reference Range Interpretation Comments Ca Ion WB (test code = Ca Ion WB) 1.23 1.05-1.25 [facility] CenterKaznrqrJWTDOCVXG6940-72-96 10:15:00 Test Item Value Reference Range Interpretation Comments Ca Ion at pH 7.4 WB (test code = Ca Ion 1.19 1.05-1.25 at pH 7.4 WB) [facility] HospitalIukgneyHKZDOSTYXI4719-23-79 10:15:00 Test Item Value Reference Range Interpretation Comments WBC (test code = WBC) 10.9 3.7-10.4 [facility] HospitalCpqzfumFPEHYFJZJP4683-88-45 10:15:00 Test Item Value Reference Range Interpretation Comments RBC (test code = RBC) 2.89 4.20-5.40 [facility] HospitalTwyzfloWEYLKUZTDI2545-96-30 10:15:00 Test Item Value Reference Range Interpretation Comments Hgb (test code = Hgb) 8.2 12.0-16.0 [facility] HospitalJaaftnjJDNUMLJRKM5862-57-74 10:15:00 Test Item Value Reference Range Interpretation Comments RBC (test code = RBC) 2.89 4.20-5.40 [place] 406462-10-30 10:15:00 Test Item Value Reference Range Interpretation Comments Hct (test code = Hct) 24.5 36.0-48.0 [facility] HospitalPtxmmasVDCXDANDJQ4106-25-50 10:15:00 Test Item Value Reference Range Interpretation Comments MCV (test code = MCV) 84.7 80.0-98.0 [place] 406462-10-30 10:15:00 Test Item Value Reference Range Interpretation Comments MCH (test code = MCH) 28.4 pg 27.0-31.0 [facility] HospitalSswcflnZQQKREZWVV2566-08-24 10:15:00 Test Item Value Reference Range Interpretation Comments MCHC (test code = MCHC) 33.5 32.0-36.0 [facility] HospitalIhkvqwtCIBBKEYXCN8142-40-75 10:15:00 Test Item Value Reference Range Interpretation Comments RDW (test code = RDW) 13.5 11.5-14.5 [place] 406462-10-30 10:15:00 Test Item Value Reference Range Interpretation Comments Platelet (test code = Platelet) 459 355-450 [facility] HospitalGujsswvZHQVEBFMXZ7523-89-12 10:15:00 Test Item Value Reference Range Interpretation Comments MPV (test code = MPV) 8.1 7.4-10.4 [facility] HospitalFanghoxZNMLUYOPNU2069-82-67 10:15:00 Test Item Value Reference Range Interpretation Comments Segs (test code = Segs) 59.9 45.0-75.0 [facility] HospitalEjoxcwbNAYHKUYASZ2259-22-47 10:15:00 Test Item Value Reference Range Interpretation Comments Lymphocytes (test code = Lymphocytes) 31.3 20.0-40.0 [facility] HospitalBaivcfyKBFFJDJFYP9452-63-67 10:15:00 Test Item Value Reference Range Interpretation Comments Monocytes (test code = Monocytes) 4.9 2.0-12.0 [place] 406462-10-30 10:15:00 Test Item Value Reference Range Interpretation Comments Hgb (test code = Hgb) 8.2 12.0-16.0 [place] 406462-10-30 10:15:00 Test Item Value Reference Range Interpretation Comments Eosinophils (test code = Eosinophils) 3.3 <=4.0 [place] 406462-10-30 10:15:00 Test Item Value Reference Range Interpretation Comments Basophils (test code = Basophils) 0.6 <=1.0 [place] 406462-10-30 10:15:00 Test Item Value Reference Range Interpretation Comments Neutrophils # (test code = Neutrophils 6.5 1.5-8.1 #) [facility] HospitalWonblaqLEPTRBYFCO7746-46-87 10:15:00 Test Item Value Reference Range Interpretation Comments Lymphocytes # (test code = Lymphocytes 3.4 1.0-5.5 #) [facility] HospitalFulvrfjJMQZVRUHCQ1854-75-63 10:15:00 Test Item Value Reference Range Interpretation Comments Monocytes # (test code = Monocytes #) 0.5 <=0.8 [place] 406462-10-30 10:15:00 Test Item Value Reference Range Interpretation Comments Eosinophils # (test code = Eosinophils 0.4 <=0.5 #) [facility] HospitalRscnjjxVWEQHYNPOX9145-65-59 10:15:00 Test Item Value Reference Range Interpretation Comments Basophils # (test code = Basophils #) 0.1 <=0.2 [place] 406462-10-30 10:15:00 Test Item Value Reference Range Interpretation Comments Hct (test code = Hct) 24.5 36.0-48.0 [place] 406462-10-30 10:15:00 Test Item Value Reference Range Interpretation Comments MCV (test code = MCV) 84.7 80.0-98.0 [place] 406462-10-30 10:15:00 Test Item Value Reference Range Interpretation Comments MCH (test code = MCH) 28.4 pg 27.0-31.0 [place] 406462-10-30 10:15:00 Test Item Value Reference Range Interpretation Comments MCHC (test code = MCHC) 33.5 32.0-36.0 [place] 406462-10-30 10:15:00 Test Item Value Reference Range Interpretation Comments RDW (test code = RDW) 13.5 11.5-14.5 [place] 406462-10-30 10:15:00 Test Item Value Reference Range Interpretation Comments Platelet (test code = Platelet) 459 796-450 [facility] HospitalCafzklwMCCXQWBXOV4144-40-14 10:15:00 Test Item Value Reference Range Interpretation Comments MPV (test code = MPV) 8.1 7.4-10.4 [place] 406462-10-30 10:15:00 Test Item Value Reference Range Interpretation Comments Segs (test code = Segs) 59.9 45.0-75.0 [place] 406462-10-30 10:15:00 Test Item Value Reference Range Interpretation Comments Lymphocytes (test code = Lymphocytes) 31.3 20.0-40.0 [place] 406462-10-30 10:15:00 Test Item Value Reference Range Interpretation Comments Monocytes (test code = Monocytes) 4.9 2.0-12.0 [place] [address]-10-30 10:15:00 Test Item Value Reference Range Interpretation Comments Eosinophils (test code = 3.3 See_Comment [A utomated message] The Eosinophils) system which ge nerated this result tra nsmitted reference range : <=4.0. The reference r kyle was not used to int erpret this result as normal/abnormal . [place] 406462-10-30 10:15:00 Test Item Value Reference Range Interpretation Comments Basophils (test code = 0.6 See_Comment [Aut omated message] The Basophils) system which ge nerated this result tra nsmitted reference range : <=1.0. The reference r kyle was not used to int erpret this result as normal/abnormal . [facility] HospitalGsqklppIFQHXODAQY8315-35-74 10:15:00 Test Item Value Reference Range Interpretation Comments Neutrophils # (test code = Neutrophils 6.5 1.5-8.1 #) [place] 406462-10-30 10:15:00 Test Item Value Reference Range Interpretation Comments Lymphocytes # (test code = Lymphocytes 3.4 1.0-5.5 #) [place] [address]-10-30 10:15:00 Test Item Value Reference Range Interpretation Comments Monocytes # (test code 0.5 See_Comment [Aut omated message] The = Monocytes #) system which generated this result tra nsmitted reference range : <=0.8. The reference r kyle was not used to int erpret this result as normal/abnormal . [place] [address]-10-30 10:15:00 Test Item Value Reference Range Interpretation Comments Eosinophils # (test code 0.4 See_Comment [A utomated message] The = Eosinophils #) system whic h generated this result tra nsmitted reference range : <=0.5. The reference r kyle was not used to int erpret this result as normal/abnormal . [facility] HospitalPtjuetwCTEEWQNMJV8788-02-97 10:15:00 Test Item Value Reference Range Interpretation Comments Basophils # (test code 0.1 See_Comment [Aut omated message] The = Basophils #) system which generated this result tra nsmitted reference range : <=0.2. The reference r kyle was not used to int erpret this result as normal/abnormal . [facility] CenterZsnbeajXLKFDLOZL9955-05-79 10:15:00 Test Item Value Reference Range Interpretation Comments Glucose Lvl (test code = Glucose Lvl) 141 70-99 [facility] CenterZcuivfrOGOLEOFJN3056-29-08 10:15:00 Test Item Value Reference Range Interpretation Comments BUN (test code = BUN) 12 7-22 [facility] CenterKmvppopQBHPBGGPO8506-25-62 10:15:00 Test Item Value Reference Range Interpretation Comments Creatinine Lvl (test code = Creatinine 0.42 0.50-1.40 Lvl) [facility] CenterEgulvtoBLVQEBBPB5687-36-68 10:15:00 Test Item Value Reference Range Interpretation Comments Sodium Lvl (test code = Sodium Lvl) 135 135-145 [facility] CenterPlxhsdlXPWYTFSSH2059-89-76 10:15:00 Test Item Value Reference Range Interpretation Comments Potassium Lvl (test code = Potassium 4.2 3.5-5.1 Lvl) [facility] CenterZsdzfyyDMMAVHPPG6399-24-87 10:15:00 Test Item Value Reference Range Interpretation Comments Chloride Lvl (test code = Chloride Lvl) 101 95-109 [facility] CenterRrvbwmgFTEDVPHYK1420-47-20 10:15:00 Test Item Value Reference Range Interpretation Comments CO2 (test code = CO2) 30 24-32 [facility] CenterCdvprxrCNNPKFJQH8685-87-28 10:15:00 Test Item Value Reference Range Interpretation Comments AGAP (test code = AGAP) 8.2 10.0-20.0 [facility] CenterVuprtcrPYHCEPCIO2304-77-13 10:15:00 Test Item Value Reference Range Interpretation Comments Calcium Lvl (test code = Calcium Lvl) 8.9 8.5-10.5 [facility] CenterFvibtywNGNKTZCOG3546-98-87 10:15:00 Test Item Value Reference Range Interpretation Comments eGFR (test code = eGFR) 116 [facility] CenterJitdbbvPYVOEXQRB2804-33-04 10:15:00 Test Item Value Reference Range Interpretation Comments Magnesium Lvl (test code = Magnesium 1.9 1.8-2.4 Lvl) [facility] CenterXqrpdqmUBKRCDZTP3622-16-40 10:15:00 Test Item Value Reference Range Interpretation Comments Phosphorus (test code = Phosphorus) 4.2 2.5-4.5 [facility] CenterJapnmasCBAEYYADM2171-61-93 10:15:00 Test Item Value Reference Range Interpretation Comments Ca Ion WB (test code = Ca Ion WB) 1.23 1.05-1.25 [facility] CenterDxcykwyJVTSGGHOX8594-37-72 10:15:00 Test Item Value Reference Range Interpretation Comments Ca Ion at pH 7.4 WB (test code = Ca Ion 1.19 1.05-1.25 at pH 7.4 WB) [facility] HospitalEivikpzZITMQMVGCE3676-36-76 10:15:00 Test Item Value Reference Range Interpretation Comments WBC (test code = WBC) 10.9 3.7-10.4 [facility] HospitalGhkummmOTOWABGLAV8116-89-19 10:15:00 Test Item Value Reference Range Interpretation Comments RBC (test code = RBC) 2.89 4.20-5.40 [facility] HospitalWnqvtvzRIWYUCBRBC9055-05-09 10:15:00 Test Item Value Reference Range Interpretation Comments Hgb (test code = Hgb) 8.2 12.0-16.0 [facility] HospitalGtoemovONZTJRHUFK2506-71-18 10:15:00 Test Item Value Reference Range Interpretation Comments Hct (test code = Hct) 24.5 36.0-48.0 [facility] HospitalWzetnmrIUUPBAOUIP3001-15-76 10:15:00 Test Item Value Reference Range Interpretation Comments MCV (test code = MCV) 84.7 80.0-98.0 [place] 406462-10-30 10:15:00 Test Item Value Reference Range Interpretation Comments MCH (test code = MCH) 28.4 pg 27.0-31.0 [facility] HospitalYxajdaqRNNPHTHUEQ2410-03-31 10:15:00 Test Item Value Reference Range Interpretation Comments MCHC (test code = MCHC) 33.5 32.0-36.0 [facility] HospitalFekkkoaAPDNVSOIPY2220-45-90 10:15:00 Test Item Value Reference Range Interpretation Comments RDW (test code = RDW) 13.5 11.5-14.5 [facility] HospitalXkbvotoKRAFQMDFDA0300-23-19 10:15:00 Test Item Value Reference Range Interpretation Comments Platelet (test code = Platelet) 459 644-450 [facility] HospitalXwtukibPWEQOSKRHD2775-44-60 10:15:00 Test Item Value Reference Range Interpretation Comments MPV (test code = MPV) 8.1 7.4-10.4 [facility] HospitalUzcuuamORBKVMLZQF7846-93-24 10:15:00 Test Item Value Reference Range Interpretation Comments Segs (test code = Segs) 59.9 45.0-75.0 [facility] HospitalVkobxmwOXHHRVVXUI4027-26-70 10:15:00 Test Item Value Reference Range Interpretation Comments Lymphocytes (test code = Lymphocytes) 31.3 20.0-40.0 [facility] HospitalFehoveaIELVHBIOGB6520-55-36 10:15:00 Test Item Value Reference Range Interpretation Comments Monocytes (test code = Monocytes) 4.9 2.0-12.0 [facility] HospitalRssfoyoONHISDVZZM4697-59-18 10:15:00 Test Item Value Reference Range Interpretation Comments Eosinophils (test code = Eosinophils) 3.3 <=4.0 [facility] HospitalLeqgjvfITGYLXVKUB7640-17-37 10:15:00 Test Item Value Reference Range Interpretation Comments Basophils (test code = Basophils) 0.6 <=1.0 [facility] HospitalSgnkomyYNZBSTJCJT1769-30-91 10:15:00 Test Item Value Reference Range Interpretation Comments Neutrophils # (test code = Neutrophils 6.5 1.5-8.1 #) [facility] HospitalHqejfisIGTCLLYSOR0013-95-97 10:15:00 Test Item Value Reference Range Interpretation Comments Lymphocytes # (test code = Lymphocytes 3.4 1.0-5.5 #) [facility] HospitalZageqhdNRZSTGSVPG6953-94-85 10:15:00 Test Item Value Reference Range Interpretation Comments Monocytes # (test code = Monocytes #) 0.5 <=0.8 [place] 406462-10-30 10:15:00 Test Item Value Reference Range Interpretation Comments Eosinophils # (test code = Eosinophils 0.4 <=0.5 #) [facility] HospitalTwkfgbvHKDXNBJNLL4804-44-62 10:15:00 Test Item Value Reference Range Interpretation Comments Basophils # (test code = Basophils #) 0.1 <=0.2 [address]10-30 10:15:00 Test Item Value Reference Range Interpretation Comments Glucose Lvl (test code = Glucose Lvl) 141 70-99 [facility] CenterEukqyjyFJDGWYNTQ2960-45-01 10:15:00 Test Item Value Reference Range Interpretation Comments BUN (test code = BUN) 12 7-22 [facility] CenterHogckcpCOAUVPNKR1497-93-05 10:15:00 Test Item Value Reference Range Interpretation Comments Creatinine Lvl (test code = Creatinine 0.42 0.50-1.40 Lvl) [facility] CenterXfkyedsDZSDUBAYO1002-73-69 10:15:00 Test Item Value Reference Range Interpretation Comments Sodium Lvl (test code = Sodium Lvl) 135 135-145 [facility] CenterFbvdemoZEKDPQQPY1771-99-26 10:15:00 Test Item Value Reference Range Interpretation Comments Potassium Lvl (test code = Potassium 4.2 3.5-5.1 Lvl) [facility] CenterRfxatybQQVAUUGHM7650-45-66 10:15:00 Test Item Value Reference Range Interpretation Comments Chloride Lvl (test code = Chloride Lvl) 101 95-109 [facility] CenterEiraqzwWBGQLOZQY1943-15-80 10:15:00 Test Item Value Reference Range Interpretation Comments CO2 (test code = CO2) 30 24-32 [facility] CenterPxnqjvvIWBLWZJPD6131-76-09 10:15:00 Test Item Value Reference Range Interpretation Comments AGAP (test code = AGAP) 8.2 10.0-20.0 [facility] CenterGjsswbjZAVEOKNSN3510-59-99 10:15:00 Test Item Value Reference Range Interpretation Comments Calcium Lvl (test code = Calcium Lvl) 8.9 8.5-10.5 [facility] CenterAjtzjqgYRSKBCZBV5383-11-58 10:15:00 Test Item Value Reference Range Interpretation Comments eGFR (test code = eGFR) 116 [facility] CenterIfnxmoqZLSZWWVTZ8561-65-66 10:15:00 Test Item Value Reference Range Interpretation Comments Magnesium Lvl (test code = Magnesium 1.9 1.8-2.4 Lvl) [facility] CenterLiaejukQBDXXYACX7638-67-34 10:15:00 Test Item Value Reference Range Interpretation Comments Phosphorus (test code = Phosphorus) 4.2 2.5-4.5 [facility] CenterUpoapdzWXCSFMYFM0565-53-18 10:15:00 Test Item Value Reference Range Interpretation Comments Ca Ion WB (test code = Ca Ion WB) 1.23 1.05-1.25 [facility] CenterAbitoafSIDMFAIPT8903-05-39 10:15:00 Test Item Value Reference Range Interpretation Comments Ca Ion at pH 7.4 WB (test code = Ca Ion 1.19 1.05-1.25 at pH 7.4 WB) [facility]WvdcxugLZEEGYBBAW5097-41-73 10:15:00 Test Item Value Reference Range Interpretation Comments WBC (test code = WBC) 10.9 3.7-10.4 [facility] HospitalBdmxgzcYWDUWGSWNN9248-66-79 10:15:00 Test Item Value Reference Range Interpretation Comments RBC (test code = RBC) 2.89 4.20-5.40 [facility] HospitalVbijsshNKMIQMMEJG6358-76-30 10:15:00 Test Item Value Reference Range Interpretation Comments Hgb (test code = Hgb) 8.2 12.0-16.0 [facility] HospitalRflmfgfFYQEVEJSMR4939-34-53 10:15:00 Test Item Value Reference Range Interpretation Comments Hct (test code = Hct) 24.5 36.0-48.0 [facility] HospitalWklckstLBVEGDGXHA1412-05-01 10:15:00 Test Item Value Reference Range Interpretation Comments MCV (test code = MCV) 84.7 80.0-98.0 [facility] HospitalMrioiyyLGQOFCYLTA8513-71-27 10:15:00 Test Item Value Reference Range Interpretation Comments MCH (test code = MCH) 28.4 pg 27.0-31.0 [facility] HospitalBiinvblIWCIQAZPYM0539-03-44 10:15:00 Test Item Value Reference Range Interpretation Comments MCHC (test code = MCHC) 33.5 32.0-36.0 [facility] HospitalCzfnbvdYWGWNNYCNM3839-27-39 10:15:00 Test Item Value Reference Range Interpretation Comments RDW (test code = RDW) 13.5 11.5-14.5 [facility] HospitalRhlzljcCIYJFQPMIU2681-56-89 10:15:00 Test Item Value Reference Range Interpretation Comments Platelet (test code = Platelet) 459 903-450 [facility] HospitalUpnmbdbEHGMYRQNSK5187-19-88 10:15:00 Test Item Value Reference Range Interpretation Comments MPV (test code = MPV) 8.1 7.4-10.4 [facility] HospitalZdknefpZXSVZIJCYG4771-59-49 10:15:00 Test Item Value Reference Range Interpretation Comments Segs (test code = Segs) 59.9 45.0-75.0 [facility] HospitalExdzdvfHUEGKYXAAY0265-70-78 10:15:00 Test Item Value Reference Range Interpretation Comments Lymphocytes (test code = Lymphocytes) 31.3 20.0-40.0 [facility] HospitalUxsijglBPCFJZOLGJ7168-52-25 10:15:00 Test Item Value Reference Range Interpretation Comments Monocytes (test code = Monocytes) 4.9 2.0-12.0 [facility] HospitalJoxueuiPEBCIGAEQB5026-21-85 10:15:00 Test Item Value Reference Range Interpretation Comments Eosinophils (test code = Eosinophils) 3.3 <=4.0 [facility] HospitalUjsnshjHHZZEFGRMP4668-43-61 10:15:00 Test Item Value Reference Range Interpretation Comments Basophils (test code = Basophils) 0.6 <=1.0 [facility] HospitalXdfvzetGMFASCTREA3157-02-94 10:15:00 Test Item Value Reference Range Interpretation Comments Neutrophils # (test code = Neutrophils 6.5 1.5-8.1 #) [facility] HospitalHlezsiyEOXKXCGXOP4116-21-34 10:15:00 Test Item Value Reference Range Interpretation Comments Lymphocytes # (test code = Lymphocytes 3.4 1.0-5.5 #) [facility] HospitalQgrwbxyFQENJZUTDT3082-82-68 10:15:00 Test Item Value Reference Range Interpretation Comments Monocytes # (test code = Monocytes #) 0.5 <=0.8 [facility] HospitalNljidxtSBNXLHAXFA2417-21-43 10:15:00 Test Item Value Reference Range Interpretation Comments Eosinophils # (test code = Eosinophils 0.4 <=0.5 #) [facility] HospitalLonzoxhVAHRDWQPAU8200-91-39 10:15:00 Test Item Value Reference Range Interpretation Comments Basophils # (test code = Basophils #) 0.1 <=0.2 [place] 223672-10-30 10:15:00 Test Item Value Reference Range Interpretation Comments Glucose Lvl (test code = Glucose Lvl) 141 70-99 [facility] CenterYbwkomdUMFFTNIQZ9424-52-50 10:15:00 Test Item Value Reference Range Interpretation Comments BUN (test code = BUN) 12 7-22 [facility] CenterUmxqicsSFSANHPSC5974-37-24 10:15:00 Test Item Value Reference Range Interpretation Comments Creatinine Lvl (test code = Creatinine 0.42 0.50-1.40 Lvl) [facility] CenterXstacnoDCZILLBXW0628-54-94 10:15:00 Test Item Value Reference Range Interpretation Comments Sodium Lvl (test code = Sodium Lvl) 135 135-145 [facility] CenterTimllxzJCBFMZKGL9466-93-05 10:15:00 Test Item Value Reference Range Interpretation Comments Potassium Lvl (test code = Potassium 4.2 3.5-5.1 Lvl) [facility] CenterEmnzguyZITBRVVAC5036-76-78 10:15:00 Test Item Value Reference Range Interpretation Comments Chloride Lvl (test code = Chloride Lvl) 101 95-109 [facility] CenterWigvlfpDQKMZOHCE9780-10-61 10:15:00 Test Item Value Reference Range Interpretation Comments CO2 (test code = CO2) 30 24-32 [facility] CenterOzilageYBOGZRWTM4071-27-59 10:15:00 Test Item Value Reference Range Interpretation Comments AGAP (test code = AGAP) 8.2 10.0-20.0 [facility] CenterIbkxxtqEUAMLKRXF0124-15-57 10:15:00 Test Item Value Reference Range Interpretation Comments Calcium Lvl (test code = Calcium Lvl) 8.9 8.5-10.5 [facility] CenterIqvexobCBEDHOFBO7604-70-26 10:15:00 Test Item Value Reference Range Interpretation Comments eGFR (test code = eGFR) 116 [facility] CenterDuijwmjLFJIJJXMH9198-02-29 10:15:00 Test Item Value Reference Range Interpretation Comments Magnesium Lvl (test code = Magnesium 1.9 1.8-2.4 Lvl) [facility] CenterEdcqygyYTXBUSNIS0684-24-87 10:15:00 Test Item Value Reference Range Interpretation Comments Phosphorus (test code = Phosphorus) 4.2 2.5-4.5 [facility] CenterKlznznjUMMSSPNGG1390-14-87 10:15:00 Test Item Value Reference Range Interpretation Comments Ca Ion WB (test code = Ca Ion WB) 1.23 1.05-1.25 [facility] CenterLoacpsrESVJXVHDT2467-53-60 10:15:00 Test Item Value Reference Range Interpretation Comments Ca Ion at pH 7.4 WB (test code = Ca Ion 1.19 1.05-1.25 at pH 7.4 WB) [facility] HospitalMpyomoiDVUHKMIJAS9272-87-72 10:15:00 Test Item Value Reference Range Interpretation Comments WBC (test code = WBC) 10.9 3.7-10.4 [facility] HospitalKfftzywKNXCKSOPQJ0508-59-79 10:15:00 Test Item Value Reference Range Interpretation Comments RBC (test code = RBC) 2.89 4.20-5.40 [place] 406462-10-30 10:15:00 Test Item Value Reference Range Interpretation Comments Hgb (test code = Hgb) 8.2 12.0-16.0 [place] 406462-10-30 10:15:00 Test Item Value Reference Range Interpretation Comments Hct (test code = Hct) 24.5 36.0-48.0 [place] 406462-10-30 10:15:00 Test Item Value Reference Range Interpretation Comments MCV (test code = MCV) 84.7 80.0-98.0 [place] 406462-10-30 10:15:00 Test Item Value Reference Range Interpretation Comments MCH (test code = MCH) 28.4 pg 27.0-31.0 [facility] HospitalYmpmymqBUJCCPSRSD7858-76-09 10:15:00 Test Item Value Reference Range Interpretation Comments MCHC (test code = MCHC) 33.5 32.0-36.0 [facility] HospitalUnwjqxlZUDISIPQBR4178-08-80 10:15:00 Test Item Value Reference Range Interpretation Comments RDW (test code = RDW) 13.5 11.5-14.5 [place] 406462-10-30 10:15:00 Test Item Value Reference Range Interpretation Comments Platelet (test code = Platelet) 459 133-450 [facility] HospitalWswjzjbDZFOOEXIGE7523-98-23 10:15:00 Test Item Value Reference Range Interpretation Comments MPV (test code = MPV) 8.1 7.4-10.4 [place] 406462-10-30 10:15:00 Test Item Value Reference Range Interpretation Comments Segs (test code = Segs) 59.9 45.0-75.0 [place] 406462-10-30 10:15:00 Test Item Value Reference Range Interpretation Comments Lymphocytes (test code = Lymphocytes) 31.3 20.0-40.0 [place] 406462-10-30 10:15:00 Test Item Value Reference Range Interpretation Comments Monocytes (test code = Monocytes) 4.9 2.0-12.0 [place] [address]-10-30 10:15:00 Test Item Value Reference Range Interpretation Comments Eosinophils (test code = Eosinophils) 3.3 <=4.0 [place] 406462-10-30 10:15:00 Test Item Value Reference Range Interpretation Comments Basophils (test code = Basophils) 0.6 <=1.0 [place] 406462-10-30 10:15:00 Test Item Value Reference Range Interpretation Comments Neutrophils # (test code = Neutrophils 6.5 1.5-8.1 #) [facility] HospitalQiyrmzzNQLPOBMKXI0401-80-01 10:15:00 Test Item Value Reference Range Interpretation Comments Lymphocytes # (test code = Lymphocytes 3.4 1.0-5.5 #) [facility] HospitalVbresihTAAZPOLRAM7168-27-04 10:15:00 Test Item Value Reference Range Interpretation Comments Monocytes # (test code = Monocytes #) 0.5 <=0.8 [place] 406462-10-30 10:15:00 Test Item Value Reference Range Interpretation Comments Eosinophils # (test code = Eosinophils 0.4 <=0.5 #) [facility] HospitalHtbcrhnKUJFNVFDEM8063-01-17 10:15:00 Test Item Value Reference Range Interpretation Comments Basophils # (test code = Basophils #) 0.1 <=0.2 [place] 223672-10-30 10:15:00 Test Item Value Reference Range Interpretation Comments Glucose Lvl (test code = Glucose Lvl) 141 70-99 [facility] CenterDnyrvemIRERECOYL3331-97-94 10:15:00 Test Item Value Reference Range Interpretation Comments BUN (test code = BUN) 12 7-22 [facility] CenterDhzqxtwAKJPHVAGA4682-30-85 10:15:00 Test Item Value Reference Range Interpretation Comments Creatinine Lvl (test code = Creatinine 0.42 0.50-1.40 Lvl) [facility] CenterLjtbhqxNUKKGDHRS4963-53-25 10:15:00 Test Item Value Reference Range Interpretation Comments Sodium Lvl (test code = Sodium Lvl) 135 135-145 [facility] CenterSxrfjrtPAIHPAHHI3943-57-09 10:15:00 Test Item Value Reference Range Interpretation Comments Potassium Lvl (test code = Potassium 4.2 3.5-5.1 Lvl) [facility] CenterZiyuecaBZHPONAIH4320-03-43 10:15:00 Test Item Value Reference Range Interpretation Comments Chloride Lvl (test code = Chloride Lvl) 101 95-109 [place] 223672-10-30 10:15:00 Test Item Value Reference Range Interpretation Comments CO2 (test code = CO2) 30 24-32 [facility] CenterDrrmbuoZHKNBEPYX2039-65-94 10:15:00 Test Item Value Reference Range Interpretation Comments AGAP (test code = AGAP) 8.2 10.0-20.0 [facility] CenterVnjmlgsMWLMSBEVG9702-68-72 10:15:00 Test Item Value Reference Range Interpretation Comments Calcium Lvl (test code = Calcium Lvl) 8.9 8.5-10.5 [facility] CenterIejjokbXJVVRPPSS5341-52-40 10:15:00 Test Item Value Reference Range Interpretation Comments eGFR (test code = eGFR) 116 [facility] CenterJriepzaWAENJPQFY9292-13-96 10:15:00 Test Item Value Reference Range Interpretation Comments Magnesium Lvl (test code = Magnesium 1.9 1.8-2.4 Lvl) [facility] CenterQncsakmJXQYTBHOC9251-73-60 10:15:00 Test Item Value Reference Range Interpretation Comments Phosphorus (test code = Phosphorus) 4.2 2.5-4.5 [facility] CenterYdwxqskIIYROKKPY1429-93-39 10:15:00 Test Item Value Reference Range Interpretation Comments Ca Ion WB (test code = Ca Ion WB) 1.23 1.05-1.25 [facility] CenterBopamogDDRAMXVXM3815-20-83 10:15:00 Test Item Value Reference Range Interpretation Comments Ca Ion at pH 7.4 WB (test code = Ca Ion 1.19 1.05-1.25 at pH 7.4 WB) [facility] HospitalXgwztblXBTLWPFAET5900-94-25 10:15:00 Test Item Value Reference Range Interpretation Comments WBC (test code = WBC) 10.9 3.7-10.4 [place] 406462-10-30 10:15:00 Test Item Value Reference Range Interpretation Comments RBC (test code = RBC) 2.89 4.20-5.40 [facility] HospitalXaazwnjBBZEPAFOMN2422-15-77 10:15:00 Test Item Value Reference Range Interpretation Comments Hgb (test code = Hgb) 8.2 12.0-16.0 [place] 406462-10-30 10:15:00 Test Item Value Reference Range Interpretation Comments Hct (test code = Hct) 24.5 36.0-48.0 [facility] HospitalDgpijkxXRWNSOFLCJ1133-61-60 10:15:00 Test Item Value Reference Range Interpretation Comments MCV (test code = MCV) 84.7 80.0-98.0 [facility] HospitalDgeiadgMDGBHIPUGJ1387-10-36 10:15:00 Test Item Value Reference Range Interpretation Comments MCH (test code = MCH) 28.4 pg 27.0-31.0 [facility] HospitalVvlsgywPRXEEGRJRH8495-29-09 10:15:00 Test Item Value Reference Range Interpretation Comments MCHC (test code = MCHC) 33.5 32.0-36.0 [facility] HospitalPnushcwLZHKBWKAXF4244-47-61 10:15:00 Test Item Value Reference Range Interpretation Comments RDW (test code = RDW) 13.5 11.5-14.5 [facility] HospitalXqxysgbSXQQVWSPGM6426-57-25 10:15:00 Test Item Value Reference Range Interpretation Comments Platelet (test code = Platelet) 459 104-450 [facility] HospitalCctspctDZODVKZJBW5846-71-56 10:15:00 Test Item Value Reference Range Interpretation Comments MPV (test code = MPV) 8.1 7.4-10.4 [facility] HospitalRutyodqLGTASOVMWL3505-68-15 10:15:00 Test Item Value Reference Range Interpretation Comments Segs (test code = Segs) 59.9 45.0-75.0 [facility] HospitalHquahhmVSOKTLPCCA9880-44-37 10:15:00 Test Item Value Reference Range Interpretation Comments Lymphocytes (test code = Lymphocytes) 31.3 20.0-40.0 [facility] HospitalPzwqlzvAJBIUZNXOQ9378-97-52 10:15:00 Test Item Value Reference Range Interpretation Comments Monocytes (test code = Monocytes) 4.9 2.0-12.0 [place] 406462-10-30 10:15:00 Test Item Value Reference Range Interpretation Comments Eosinophils (test code = Eosinophils) 3.3 <=4.0 [place] 406462-10-30 10:15:00 Test Item Value Reference Range Interpretation Comments Basophils (test code = Basophils) 0.6 <=1.0 [place] 406462-10-30 10:15:00 Test Item Value Reference Range Interpretation Comments Neutrophils # (test code = Neutrophils 6.5 1.5-8.1 #) [facility] HospitalBxikxxdYMFVCOUHLC9994-61-56 10:15:00 Test Item Value Reference Range Interpretation Comments Lymphocytes # (test code = Lymphocytes 3.4 1.0-5.5 #) [facility] HospitalZloumqyIAOFECIYRS7257-97-47 10:15:00 Test Item Value Reference Range Interpretation Comments Monocytes # (test code = Monocytes #) 0.5 <=0.8 [facility] HospitalHzmeaumOCVXEHINTI8441-70-84 10:15:00 Test Item Value Reference Range Interpretation Comments Eosinophils # (test code = Eosinophils 0.4 <=0.5 #) [facility] HospitalCseztccYYWAQDBDEU4259-23-96 10:15:00 Test Item Value Reference Range Interpretation Comments Basophils # (test code = Basophils #) 0.1 <=0.2 [facility] CenterTkwnalaXJQWRWQNN8094-61-71 10:15:00 Test Item Value Reference Range Interpretation Comments Glucose Lvl (test code = Glucose Lvl) 141 70-99 [facility] CenterBedrvxtICUHGLNRT8055-99-32 10:15:00 Test Item Value Reference Range Interpretation Comments BUN (test code = BUN) 12 7-22 [facility] CenterOfjfnmvYWFJEBFXM3497-03-67 10:15:00 Test Item Value Reference Range Interpretation Comments Creatinine Lvl (test code = Creatinine 0.42 0.50-1.40 Lvl) [facility] CenterYjqxvzrESTHDGQST2121-12-38 10:15:00 Test Item Value Reference Range Interpretation Comments Sodium Lvl (test code = Sodium Lvl) 135 135-145 [facility] CenterCjqxylyMGBIYTDEY0055-60-55 10:15:00 Test Item Value Reference Range Interpretation Comments Potassium Lvl (test code = Potassium 4.2 3.5-5.1 Lvl) [facility] CenterQfpgmdvXHCZVICFE9335-95-96 10:15:00 Test Item Value Reference Range Interpretation Comments Chloride Lvl (test code = Chloride Lvl) 101 95-109 [facility] CenterCkthpycXXMGHEETV9960-64-62 10:15:00 Test Item Value Reference Range Interpretation Comments CO2 (test code = CO2) 30 24-32 [facility] CenterWyvqswcMDJDNMSFQ0737-84-80 10:15:00 Test Item Value Reference Range Interpretation Comments AGAP (test code = AGAP) 8.2 10.0-20.0 [facility] CenterZnfisbkUJKCNOHNF3820-68-32 10:15:00 Test Item Value Reference Range Interpretation Comments Calcium Lvl (test code = Calcium Lvl) 8.9 8.5-10.5 [facility] CenterGdkeuozBTRUUARUK6899-34-63 10:15:00 Test Item Value Reference Range Interpretation Comments eGFR (test code = eGFR) 116 [facility] CenterFidqaesLNAWTABOO6017-60-75 10:15:00 Test Item Value Reference Range Interpretation Comments Magnesium Lvl (test code = Magnesium 1.9 1.8-2.4 Lvl) [facility] CenterGlysvzbUCMXHRFAQ9148-71-66 10:15:00 Test Item Value Reference Range Interpretation Comments Phosphorus (test code = Phosphorus) 4.2 2.5-4.5 [facility] CenterRgdykmnCOXLIUSRK1072-31-30 10:15:00 Test Item Value Reference Range Interpretation Comments Ca Ion WB (test code = Ca Ion WB) 1.23 1.05-1.25 [facility] CenterIndbdfoLXDSZYAGE0512-76-08 10:15:00 Test Item Value Reference Range Interpretation Comments Ca Ion at pH 7.4 WB (test code = Ca Ion 1.19 1.05-1.25 at pH 7.4 WB) [facility] HospitalPexbjjfBWQUWFNNYF8926-68-39 10:15:00 Test Item Value Reference Range Interpretation Comments WBC (test code = WBC) 10.9 3.7-10.4 [facility] HospitalIkvqlcySPZKGWOZKA8804-94-98 10:15:00 Test Item Value Reference Range Interpretation Comments RBC (test code = RBC) 2.89 4.20-5.40 [facility] HospitalBgmeswqWOUNJIKSZN0568-74-49 10:15:00 Test Item Value Reference Range Interpretation Comments Hgb (test code = Hgb) 8.2 12.0-16.0 [facility] HospitalLlptvcwZSOBXPWMPW6611-45-58 10:15:00 Test Item Value Reference Range Interpretation Comments Hct (test code = Hct) 24.5 36.0-48.0 [facility] HospitalPtwenfaVGENBARYSB7083-66-62 10:15:00 Test Item Value Reference Range Interpretation Comments MCV (test code = MCV) 84.7 80.0-98.0 [place] 406462-10-30 10:15:00 Test Item Value Reference Range Interpretation Comments MCH (test code = MCH) 28.4 pg 27.0-31.0 [facility] HospitalOxhaimoEJSMEGMCIF9898-44-83 10:15:00 Test Item Value Reference Range Interpretation Comments MCHC (test code = MCHC) 33.5 32.0-36.0 [facility] HospitalRetkuyyIQQVJEHSJY6529-61-12 10:15:00 Test Item Value Reference Range Interpretation Comments RDW (test code = RDW) 13.5 11.5-14.5 [facility] HospitalAypjanaKGMDHJNVCH1550-46-46 10:15:00 Test Item Value Reference Range Interpretation Comments Platelet (test code = Platelet) 459 501-450 [facility] HospitalKfhmqtfQJCGTADKAZ1251-54-58 10:15:00 Test Item Value Reference Range Interpretation Comments MPV (test code = MPV) 8.1 7.4-10.4 [facility] HospitalMilandwTUJZKEWGVW6778-12-94 10:15:00 Test Item Value Reference Range Interpretation Comments Segs (test code = Segs) 59.9 45.0-75.0 [facility] HospitalSjgkaowVVLTNOJJPG7167-06-01 10:15:00 Test Item Value Reference Range Interpretation Comments Lymphocytes (test code = Lymphocytes) 31.3 20.0-40.0 [facility] HospitalDblvnvhGJJZBWMNBA2065-68-87 10:15:00 Test Item Value Reference Range Interpretation Comments Monocytes (test code = Monocytes) 4.9 2.0-12.0 [facility] HospitalSubunkcWHYFYPEKAW7292-66-68 10:15:00 Test Item Value Reference Range Interpretation Comments Eosinophils (test code = Eosinophils) 3.3 <=4.0 [facility] HospitalEefqvzhYXXPNKRZUU7221-40-68 10:15:00 Test Item Value Reference Range Interpretation Comments Basophils (test code = Basophils) 0.6 <=1.0 [facility] HospitalMxpqzueOIVWWMDZVN0529-86-03 10:15:00 Test Item Value Reference Range Interpretation Comments Neutrophils # (test code = Neutrophils 6.5 1.5-8.1 #) [facility] HospitalZmqdeiqNNCURRTWTZ4440-78-80 10:15:00 Test Item Value Reference Range Interpretation Comments Lymphocytes # (test code = Lymphocytes 3.4 1.0-5.5 #) [facility] HospitalSkcysgtSBKRYFQFEG2657-01-16 10:15:00 Test Item Value Reference Range Interpretation Comments Monocytes # (test code = Monocytes #) 0.5 <=0.8 [place] 406462-10-30 10:15:00 Test Item Value Reference Range Interpretation Comments Eosinophils # (test code = Eosinophils 0.4 <=0.5 #) [facility] HospitalKzfuysqBPOMVNLNYD7935-59-30 10:15:00 Test Item Value Reference Range Interpretation Comments Basophils # (test code = Basophils #) 0.1 <=0.2 [address]10-30 10:15:00 Test Item Value Reference Range Interpretation Comments Glucose Lvl (test code = Glucose Lvl) 141 70-99 [facility] CenterGjnvcuzHBKQEHWLR8171-32-84 10:15:00 Test Item Value Reference Range Interpretation Comments BUN (test code = BUN) 12 7-22 [facility] CenterVvbrimzFUDLILYDO9665-66-66 10:15:00 Test Item Value Reference Range Interpretation Comments Creatinine Lvl (test code = Creatinine 0.42 0.50-1.40 Lvl) [facility] CenterGdzqoroMGLYNBOSZ0565-74-96 10:15:00 Test Item Value Reference Range Interpretation Comments Sodium Lvl (test code = Sodium Lvl) 135 135-145 [facility] CenterZfcrzjbNVGXRBGEH6216-66-67 10:15:00 Test Item Value Reference Range Interpretation Comments Potassium Lvl (test code = Potassium 4.2 3.5-5.1 Lvl) [facility] CenterSwhwydbUSXZWWRHD5726-37-38 10:15:00 Test Item Value Reference Range Interpretation Comments Chloride Lvl (test code = Chloride Lvl) 101 95-109 [facility] CenterAcdhfgvTFOTAMYPT8170-21-49 10:15:00 Test Item Value Reference Range Interpretation Comments CO2 (test code = CO2) 30 24-32 [facility] CenterVuwmtspHDYXMGTRS9322-10-29 10:15:00 Test Item Value Reference Range Interpretation Comments AGAP (test code = AGAP) 8.2 10.0-20.0 [facility] CenterCibdlnvLCPNVXGVL3083-12-39 10:15:00 Test Item Value Reference Range Interpretation Comments Calcium Lvl (test code = Calcium Lvl) 8.9 8.5-10.5 [facility] CenterMasoxgjSWTQWCFBZ7352-30-60 10:15:00 Test Item Value Reference Range Interpretation Comments eGFR (test code = eGFR) 116 [facility] CenterGscisthONIHFQUXM5126-42-45 10:15:00 Test Item Value Reference Range Interpretation Comments Magnesium Lvl (test code = Magnesium 1.9 1.8-2.4 Lvl) [facility] CenterYwpavfoSTHULODJX5536-75-86 10:15:00 Test Item Value Reference Range Interpretation Comments Phosphorus (test code = Phosphorus) 4.2 2.5-4.5 [facility] CenterEvwdkagOYEOMPGGH0772-65-61 10:15:00 Test Item Value Reference Range Interpretation Comments Ca Ion WB (test code = Ca Ion WB) 1.23 1.05-1.25 [facility] CenterFsgzhgqXNYFOEEUW5052-29-03 10:15:00 Test Item Value Reference Range Interpretation Comments Ca Ion at pH 7.4 WB (test code = Ca Ion 1.19 1.05-1.25 at pH 7.4 WB) [facility]ZygzyxuFYHLPRPTWT9011-94-51 10:15:00 Test Item Value Reference Range Interpretation Comments WBC (test code = WBC) 10.9 3.7-10.4 [facility] HospitalVeiwmidCWLAMTEMGL0468-58-40 10:15:00 Test Item Value Reference Range Interpretation Comments RBC (test code = RBC) 2.89 4.20-5.40 [facility] HospitalPrqwgvxLLSMALGCSJ5527-97-68 10:15:00 Test Item Value Reference Range Interpretation Comments Hgb (test code = Hgb) 8.2 12.0-16.0 [facility] HospitalVihmwkcFEYZNBIGJY9197-75-16 10:15:00 Test Item Value Reference Range Interpretation Comments Hct (test code = Hct) 24.5 36.0-48.0 [facility] HospitalDaeqtxvDRFEBZWDJV0214-59-18 10:15:00 Test Item Value Reference Range Interpretation Comments MCV (test code = MCV) 84.7 80.0-98.0 [facility] HospitalAssrlaiOLZUECCYCQ8679-28-33 10:15:00 Test Item Value Reference Range Interpretation Comments MCH (test code = MCH) 28.4 pg 27.0-31.0 [facility] HospitalKnutiqzORIHAIMKRB7768-15-52 10:15:00 Test Item Value Reference Range Interpretation Comments MCHC (test code = MCHC) 33.5 32.0-36.0 [facility] HospitalXjadstqMWSHZOFEHP6176-67-77 10:15:00 Test Item Value Reference Range Interpretation Comments RDW (test code = RDW) 13.5 11.5-14.5 [facility] HospitalRfhokrvLAOMWRELVL8604-14-00 10:15:00 Test Item Value Reference Range Interpretation Comments Platelet (test code = Platelet) 459 148-450 [facility] HospitalGapwxfgSXUXKQXRMM0627-41-06 10:15:00 Test Item Value Reference Range Interpretation Comments MPV (test code = MPV) 8.1 7.4-10.4 [facility] HospitalPlnrvoxKOIBRVCSWW1077-92-11 10:15:00 Test Item Value Reference Range Interpretation Comments Segs (test code = Segs) 59.9 45.0-75.0 [facility] HospitalWzoxmoqINWSBAZDXX6557-98-36 10:15:00 Test Item Value Reference Range Interpretation Comments Lymphocytes (test code = Lymphocytes) 31.3 20.0-40.0 [facility] HospitalNtrmubwBMVANGDDWE8728-82-29 10:15:00 Test Item Value Reference Range Interpretation Comments Monocytes (test code = Monocytes) 4.9 2.0-12.0 [facility] HospitalOmwouqsPSRXSSEKOB1473-90-52 10:15:00 Test Item Value Reference Range Interpretation Comments Eosinophils (test code = Eosinophils) 3.3 <=4.0 [facility] HospitalHdjfdwwICVDRVMJAG7070-62-97 10:15:00 Test Item Value Reference Range Interpretation Comments Basophils (test code = Basophils) 0.6 <=1.0 [facility] HospitalMdjurbtGKSVJGUQXT2625-51-60 10:15:00 Test Item Value Reference Range Interpretation Comments Neutrophils # (test code = Neutrophils 6.5 1.5-8.1 #) [facility] HospitalYrrbbyyLGQARQQLQK7250-22-39 10:15:00 Test Item Value Reference Range Interpretation Comments Lymphocytes # (test code = Lymphocytes 3.4 1.0-5.5 #) [facility] HospitalOfadrvnDILCVAQCUX8698-38-50 10:15:00 Test Item Value Reference Range Interpretation Comments Monocytes # (test code = Monocytes #) 0.5 <=0.8 [facility] HospitalXcoocuoENKHKOYWVY2450-04-56 10:15:00 Test Item Value Reference Range Interpretation Comments Eosinophils # (test code = Eosinophils 0.4 <=0.5 #) [facility] HospitalRffetucJTSZZZOOSA3260-69-74 10:15:00 Test Item Value Reference Range Interpretation Comments Basophils # (test code = Basophils #) 0.1 <=0.2 [place] 223672-10-30 10:15:00 Test Item Value Reference Range Interpretation Comments Glucose Lvl (test code = Glucose Lvl) 141 70-99 [facility]BxsfmyqJUMGAXUFW9232-43-16 10:15:00 Test Item Value Reference Range Interpretation Comments BUN (test code = BUN) 12 7-22 [facility] CenterWlpfvkrYWTADKTNJ4863-14-43 10:15:00 Test Item Value Reference Range Interpretation Comments Creatinine Lvl (test code = Creatinine 0.42 0.50-1.40 Lvl) [facility] CenterTcrogpkKFGHMMHDZ1194-29-07 10:15:00 Test Item Value Reference Range Interpretation Comments Sodium Lvl (test code = Sodium Lvl) 135 135-145 [facility] CenterQgnvtheWRJVZUTWI8847-94-33 10:15:00 Test Item Value Reference Range Interpretation Comments Potassium Lvl (test code = Potassium 4.2 3.5-5.1 Lvl) [facility] CenterYfeyotuAQCIGMACQ1980-84-37 10:15:00 Test Item Value Reference Range Interpretation Comments Chloride Lvl (test code = Chloride Lvl) 101 95-109 [facility] CenterEhtnyhxBKFVFUGNO5703-03-34 10:15:00 Test Item Value Reference Range Interpretation Comments CO2 (test code = CO2) 30 24-32 [facility] CenterSeojqinUIKHZBOOA5693-34-41 10:15:00 Test Item Value Reference Range Interpretation Comments AGAP (test code = AGAP) 8.2 10.0-20.0 [facility] CenterOiukflwEZBZYIRAB0856-96-00 10:15:00 Test Item Value Reference Range Interpretation Comments Calcium Lvl (test code = Calcium Lvl) 8.9 8.5-10.5 [facility] CenterMsginbhWLTNDWYIN4200-16-82 10:15:00 Test Item Value Reference Range Interpretation Comments eGFR (test code = eGFR) 116 [facility] CenterXjnqhnqYZCMWVQSG3359-54-60 10:15:00 Test Item Value Reference Range Interpretation Comments Magnesium Lvl (test code = Magnesium 1.9 1.8-2.4 Lvl) [facility] CenterWxyffddNPEMOGIIT5605-80-08 10:15:00 Test Item Value Reference Range Interpretation Comments Phosphorus (test code = Phosphorus) 4.2 2.5-4.5 [facility] CenterBeehiarQLVIWPOND4993-16-09 10:15:00 Test Item Value Reference Range Interpretation Comments Ca Ion WB (test code = Ca Ion WB) 1.23 1.05-1.25 [facility] CenterOwgkiqmCWUVBNWHF1460-22-23 10:15:00 Test Item Value Reference Range Interpretation Comments Ca Ion at pH 7.4 WB (test code = Ca Ion 1.19 1.05-1.25 at pH 7.4 WB) [facility] HospitalQrkcomkKCVJDYPAUW5742-99-85 10:15:00 Test Item Value Reference Range Interpretation Comments WBC (test code = WBC) 10.9 3.7-10.4 [facility] HospitalKhevpipVAJAMXIAUC8586-45-49 10:15:00 Test Item Value Reference Range Interpretation Comments RBC (test code = RBC) 2.89 4.20-5.40 [place] 406462-10-30 10:15:00 Test Item Value Reference Range Interpretation Comments Hgb (test code = Hgb) 8.2 12.0-16.0 [place] 406462-10-30 10:15:00 Test Item Value Reference Range Interpretation Comments Hct (test code = Hct) 24.5 36.0-48.0 [place] 406462-10-30 10:15:00 Test Item Value Reference Range Interpretation Comments MCV (test code = MCV) 84.7 80.0-98.0 [place] 406462-10-30 10:15:00 Test Item Value Reference Range Interpretation Comments MCH (test code = MCH) 28.4 pg 27.0-31.0 [facility] HospitalWfwfwhmMLLXMDUOEK4445-33-11 10:15:00 Test Item Value Reference Range Interpretation Comments MCHC (test code = MCHC) 33.5 32.0-36.0 [facility] HospitalZixblulCBWWFELDDF2276-35-18 10:15:00 Test Item Value Reference Range Interpretation Comments RDW (test code = RDW) 13.5 11.5-14.5 [place] 406462-10-30 10:15:00 Test Item Value Reference Range Interpretation Comments Platelet (test code = Platelet) 459 133-450 [facility] HospitalPvwlnytBWSJTSFNMD6492-77-50 10:15:00 Test Item Value Reference Range Interpretation Comments MPV (test code = MPV) 8.1 7.4-10.4 [place] 406462-10-30 10:15:00 Test Item Value Reference Range Interpretation Comments Segs (test code = Segs) 59.9 45.0-75.0 [place] 406462-10-30 10:15:00 Test Item Value Reference Range Interpretation Comments Lymphocytes (test code = Lymphocytes) 31.3 20.0-40.0 [place] 406462-10-30 10:15:00 Test Item Value Reference Range Interpretation Comments Monocytes (test code = Monocytes) 4.9 2.0-12.0 [place] [address]-10-30 10:15:00 Test Item Value Reference Range Interpretation Comments Eosinophils (test code = Eosinophils) 3.3 <=4.0 [place] 406462-10-30 10:15:00 Test Item Value Reference Range Interpretation Comments Basophils (test code = Basophils) 0.6 <=1.0 [place] 406462-10-30 10:15:00 Test Item Value Reference Range Interpretation Comments Neutrophils # (test code = Neutrophils 6.5 1.5-8.1 #) [facility] HospitalAnomtpuJSLQXYZHGN5634-17-16 10:15:00 Test Item Value Reference Range Interpretation Comments Lymphocytes # (test code = Lymphocytes 3.4 1.0-5.5 #) [facility] HospitalHzmdqvrOCCIYXEIMT3909-58-11 10:15:00 Test Item Value Reference Range Interpretation Comments Monocytes # (test code = Monocytes #) 0.5 <=0.8 [place] 406462-10-30 10:15:00 Test Item Value Reference Range Interpretation Comments Eosinophils # (test code = Eosinophils 0.4 <=0.5 #) [facility] HospitalAzhyzxaLZAPBLIYDC8799-39-81 10:15:00 Test Item Value Reference Range Interpretation Comments Basophils # (test code = Basophils #) 0.1 <=0.2 [place] 223672-10-30 10:15:00 Test Item Value Reference Range Interpretation Comments Glucose Lvl (test code = Glucose Lvl) 141 70-99 [facility] CenterOzvmuhjJVOZQHHBU0050-12-52 10:15:00 Test Item Value Reference Range Interpretation Comments BUN (test code = BUN) 12 7-22 [facility] CenterVfqxckzENCKXEAZY0553-46-60 10:15:00 Test Item Value Reference Range Interpretation Comments Creatinine Lvl (test code = Creatinine 0.42 0.50-1.40 Lvl) [facility] CenterIjzsufwWCPDVUWNO7546-18-85 10:15:00 Test Item Value Reference Range Interpretation Comments Sodium Lvl (test code = Sodium Lvl) 135 135-145 [facility] CenterBtbwftiHAPUZURJL3855-36-79 10:15:00 Test Item Value Reference Range Interpretation Comments Potassium Lvl (test code = Potassium 4.2 3.5-5.1 Lvl) [facility] CenterFflpxzbXWPAOGAUK7187-49-94 10:15:00 Test Item Value Reference Range Interpretation Comments Chloride Lvl (test code = Chloride Lvl) 101 95-109 [place] 223672-10-30 10:15:00 Test Item Value Reference Range Interpretation Comments CO2 (test code = CO2) 30 24-32 [facility] CenterGvcnbneZAHQOTGDA3393-70-97 10:15:00 Test Item Value Reference Range Interpretation Comments AGAP (test code = AGAP) 8.2 10.0-20.0 [facility] CenterCqogsttHJCOWCJUH9196-37-37 10:15:00 Test Item Value Reference Range Interpretation Comments Calcium Lvl (test code = Calcium Lvl) 8.9 8.5-10.5 [facility] CenterOrufommNXCFUIFES2375-54-85 10:15:00 Test Item Value Reference Range Interpretation Comments eGFR (test code = eGFR) 116 [facility] CenterBvpajqgPOWIVEDBX0757-92-17 10:15:00 Test Item Value Reference Range Interpretation Comments Magnesium Lvl (test code = Magnesium 1.9 1.8-2.4 Lvl) [facility] CenterIbhrbkdCAXTAYXIU6668-06-38 10:15:00 Test Item Value Reference Range Interpretation Comments Phosphorus (test code = Phosphorus) 4.2 2.5-4.5 [facility] CenterZwubmlbHTIOQAYIF3528-38-67 10:15:00 Test Item Value Reference Range Interpretation Comments Ca Ion WB (test code = Ca Ion WB) 1.23 1.05-1.25 [facility] CenterMbycgxoFGAUEHPKF3373-15-04 10:15:00 Test Item Value Reference Range Interpretation Comments Ca Ion at pH 7.4 WB (test code = Ca Ion 1.19 1.05-1.25 at pH 7.4 WB) [facility] HospitalQxihrsoULUOYVHBCJ8579-08-69 10:15:00 Test Item Value Reference Range Interpretation Comments WBC (test code = WBC) 10.9 3.7-10.4 [place] 406462-10-30 10:15:00 Test Item Value Reference Range Interpretation Comments RBC (test code = RBC) 2.89 4.20-5.40 [facility] HospitalWtvwpowXZMSPQVGGW0873-99-54 10:15:00 Test Item Value Reference Range Interpretation Comments Hgb (test code = Hgb) 8.2 12.0-16.0 [place] 406462-10-30 10:15:00 Test Item Value Reference Range Interpretation Comments Hct (test code = Hct) 24.5 36.0-48.0 [facility] HospitalRacypjvFJMIKGDAQG3211-22-04 10:15:00 Test Item Value Reference Range Interpretation Comments MCV (test code = MCV) 84.7 80.0-98.0 [facility] HospitalIdkgnbmSTKQVXGYYA1140-56-01 10:15:00 Test Item Value Reference Range Interpretation Comments MCH (test code = MCH) 28.4 pg 27.0-31.0 [facility] HospitalLtorxymGIZGMASVII3585-08-54 10:15:00 Test Item Value Reference Range Interpretation Comments MCHC (test code = MCHC) 33.5 32.0-36.0 [facility] HospitalVoguzicYCNKQLXTFA9203-63-90 10:15:00 Test Item Value Reference Range Interpretation Comments RDW (test code = RDW) 13.5 11.5-14.5 [facility] HospitalUspzmljYDNLGQLBIX2815-74-72 10:15:00 Test Item Value Reference Range Interpretation Comments Platelet (test code = Platelet) 459 020-450 [facility] HospitalOikiqhkACRGPCUSNU6365-01-89 10:15:00 Test Item Value Reference Range Interpretation Comments MPV (test code = MPV) 8.1 7.4-10.4 [facility] HospitalRjmzbkqBKMCZUPRVK5282-94-34 10:15:00 Test Item Value Reference Range Interpretation Comments Segs (test code = Segs) 59.9 45.0-75.0 [facility] HospitalRbbwevzCQTRYTNNZZ5031-20-93 10:15:00 Test Item Value Reference Range Interpretation Comments Lymphocytes (test code = Lymphocytes) 31.3 20.0-40.0 [facility] HospitalMebylntCUOXQPSLJW0360-09-28 10:15:00 Test Item Value Reference Range Interpretation Comments Monocytes (test code = Monocytes) 4.9 2.0-12.0 [place] 406462-10-30 10:15:00 Test Item Value Reference Range Interpretation Comments Eosinophils (test code = Eosinophils) 3.3 <=4.0 [place] 406462-10-30 10:15:00 Test Item Value Reference Range Interpretation Comments Basophils (test code = Basophils) 0.6 <=1.0 [place] 406462-10-30 10:15:00 Test Item Value Reference Range Interpretation Comments Neutrophils # (test code = Neutrophils 6.5 1.5-8.1 #) [facility] HospitalPkymkjcFBVEFEZROS6657-34-32 10:15:00 Test Item Value Reference Range Interpretation Comments Lymphocytes # (test code = Lymphocytes 3.4 1.0-5.5 #) [facility] HospitalFzoqjjgREEQDOUBOZ7592-54-65 10:15:00 Test Item Value Reference Range Interpretation Comments Monocytes # (test code = Monocytes #) 0.5 <=0.8 [facility] HospitalDtcpvyzLBUYOOYOBX9816-36-74 10:15:00 Test Item Value Reference Range Interpretation Comments Eosinophils # (test code = Eosinophils 0.4 <=0.5 #) [facility] HospitalPtspgbsXPPGDOPJFQ5796-74-00 10:15:00 Test Item Value Reference Range Interpretation Comments Basophils # (test code = Basophils #) 0.1 <=0.2 [facility] CenterJkvwrklFQINSNTUQ3152-59-56 10:15:00 Test Item Value Reference Range Interpretation Comments Glucose Lvl (test code = Glucose Lvl) 141 70-99 [facility] CenterEcmefqaWHWLCJLXW9762-58-23 10:15:00 Test Item Value Reference Range Interpretation Comments BUN (test code = BUN) 12 7-22 [facility] CenterJhnwovqLKVYJUSDY9454-95-52 10:15:00 Test Item Value Reference Range Interpretation Comments Creatinine Lvl (test code = Creatinine 0.42 0.50-1.40 Lvl) [facility] CenterScuzqszJPUGWWIWF8245-24-96 10:15:00 Test Item Value Reference Range Interpretation Comments Sodium Lvl (test code = Sodium Lvl) 135 135-145 [facility] CenterFzuiojiHLAJZSGUR4117-23-45 10:15:00 Test Item Value Reference Range Interpretation Comments Potassium Lvl (test code = Potassium 4.2 3.5-5.1 Lvl) [facility] CenterUanitiaNBXFCSHRN1022-04-07 10:15:00 Test Item Value Reference Range Interpretation Comments Chloride Lvl (test code = Chloride Lvl) 101 95-109 [facility] CenterNqadqpgJJPSGQDZM0245-97-05 10:15:00 Test Item Value Reference Range Interpretation Comments CO2 (test code = CO2) 30 24-32 [facility] CenterXnpiwqxXXIQZFSKW6139-93-22 10:15:00 Test Item Value Reference Range Interpretation Comments AGAP (test code = AGAP) 8.2 10.0-20.0 [facility] CenterJetlzzjADCPGLRJB8705-02-49 10:15:00 Test Item Value Reference Range Interpretation Comments Calcium Lvl (test code = Calcium Lvl) 8.9 8.5-10.5 [facility] CenterZufgcagRFGADAJJT0486-97-01 10:15:00 Test Item Value Reference Range Interpretation Comments eGFR (test code = eGFR) 116 [facility] CenterXopbwnhKULDWMLBB6027-32-00 10:15:00 Test Item Value Reference Range Interpretation Comments Magnesium Lvl (test code = Magnesium 1.9 1.8-2.4 Lvl) [facility] CenterOgbigynWSAXVNBHX6272-83-96 10:15:00 Test Item Value Reference Range Interpretation Comments Phosphorus (test code = Phosphorus) 4.2 2.5-4.5 [facility] CenterKnujxsxBJUITNESU2949-27-45 10:15:00 Test Item Value Reference Range Interpretation Comments Ca Ion WB (test code = Ca Ion WB) 1.23 1.05-1.25 [facility] CenterCslnhmvAJTYFEHSW5043-18-70 10:15:00 Test Item Value Reference Range Interpretation Comments Ca Ion at pH 7.4 WB (test code = Ca Ion 1.19 1.05-1.25 at pH 7.4 WB) [facility] HospitalMkvmwekPVYBLHSJMX8383-37-77 10:15:00 Test Item Value Reference Range Interpretation Comments WBC (test code = WBC) 10.9 3.7-10.4 [facility] HospitalEavvumsKQVXPUUYBE5408-68-71 10:15:00 Test Item Value Reference Range Interpretation Comments RBC (test code = RBC) 2.89 4.20-5.40 [facility] HospitalQaaggkuNYGYGXGDHJ3587-47-58 10:15:00 Test Item Value Reference Range Interpretation Comments Hgb (test code = Hgb) 8.2 12.0-16.0 [facility] HospitalTqfacsaVDXZOQSKJP9042-87-18 10:15:00 Test Item Value Reference Range Interpretation Comments Hct (test code = Hct) 24.5 36.0-48.0 [facility] HospitalKlynckpVLFHCXBCRJ0564-74-68 10:15:00 Test Item Value Reference Range Interpretation Comments MCV (test code = MCV) 84.7 80.0-98.0 [place] 406462-10-30 10:15:00 Test Item Value Reference Range Interpretation Comments MCH (test code = MCH) 28.4 pg 27.0-31.0 [facility] HospitalIjclsboOBZEOVJPNJ8930-41-51 10:15:00 Test Item Value Reference Range Interpretation Comments MCHC (test code = MCHC) 33.5 32.0-36.0 [facility] HospitalTtfultjUUQKRNEWME5021-70-01 10:15:00 Test Item Value Reference Range Interpretation Comments RDW (test code = RDW) 13.5 11.5-14.5 [facility] HospitalZgewdndNMQXAHHJHT1468-03-86 10:15:00 Test Item Value Reference Range Interpretation Comments Platelet (test code = Platelet) 459 689-450 [facility] HospitalKxzueneSTLGRHWFYH2914-34-86 10:15:00 Test Item Value Reference Range Interpretation Comments MPV (test code = MPV) 8.1 7.4-10.4 [facility] HospitalVaozowsNOEFXQPUSP6000-37-46 10:15:00 Test Item Value Reference Range Interpretation Comments Segs (test code = Segs) 59.9 45.0-75.0 [facility] HospitalWgpaguuXDZGENEACN9745-31-04 10:15:00 Test Item Value Reference Range Interpretation Comments Lymphocytes (test code = Lymphocytes) 31.3 20.0-40.0 [facility] HospitalWkmrefjHVAPSTNRWL4394-67-65 10:15:00 Test Item Value Reference Range Interpretation Comments Monocytes (test code = Monocytes) 4.9 2.0-12.0 [facility] HospitalCzaswgcBGKBBCBYBV6634-64-03 10:15:00 Test Item Value Reference Range Interpretation Comments Eosinophils (test code = Eosinophils) 3.3 <=4.0 [facility] HospitalPybsalvNKSABCMLFI0843-21-28 10:15:00 Test Item Value Reference Range Interpretation Comments Basophils (test code = Basophils) 0.6 <=1.0 [facility] HospitalVxrngpdDWCMEQIXZY3525-34-10 10:15:00 Test Item Value Reference Range Interpretation Comments Neutrophils # (test code = Neutrophils 6.5 1.5-8.1 #) [facility] HospitalNbghtipPWIZECLPPQ1207-30-60 10:15:00 Test Item Value Reference Range Interpretation Comments Lymphocytes # (test code = Lymphocytes 3.4 1.0-5.5 #) [facility] HospitalUpslcahZIKUSQZJUP0158-84-45 10:15:00 Test Item Value Reference Range Interpretation Comments Monocytes # (test code = Monocytes #) 0.5 <=0.8 [place] 406462-10-30 10:15:00 Test Item Value Reference Range Interpretation Comments Eosinophils # (test code = Eosinophils 0.4 <=0.5 #) [facility] HospitalBwewmpyHPDZJROUKY0931-14-14 10:15:00 Test Item Value Reference Range Interpretation Comments Basophils # (test code = Basophils #) 0.1 <=0.2 [address]10-30 10:15:00 Test Item Value Reference Range Interpretation Comments Glucose Lvl (test code = Glucose Lvl) 141 70-99 [facility] CenterQcsbhwaKHMMFDHBR2396-81-55 10:15:00 Test Item Value Reference Range Interpretation Comments BUN (test code = BUN) 12 7-22 [facility] CenterTkbphlzSOGLUSHOR5264-74-87 10:15:00 Test Item Value Reference Range Interpretation Comments Creatinine Lvl (test code = Creatinine 0.42 0.50-1.40 Lvl) [facility] CenterEcjxwlzIGBRUQWSK2856-06-07 10:15:00 Test Item Value Reference Range Interpretation Comments Sodium Lvl (test code = Sodium Lvl) 135 135-145 [facility] CenterBayqhdpGMHPLTGGR2185-22-05 10:15:00 Test Item Value Reference Range Interpretation Comments Potassium Lvl (test code = Potassium 4.2 3.5-5.1 Lvl) [facility] CenterNpmfxhgTNPHZZMAD8798-23-93 10:15:00 Test Item Value Reference Range Interpretation Comments Chloride Lvl (test code = Chloride Lvl) 101 95-109 [facility] CenterBpaongfGICXDHFQF3395-59-94 10:15:00 Test Item Value Reference Range Interpretation Comments CO2 (test code = CO2) 30 24-32 [facility] CenterAzcreccTSXSSVKMM8714-93-41 10:15:00 Test Item Value Reference Range Interpretation Comments AGAP (test code = AGAP) 8.2 10.0-20.0 [facility] CenterTsyxiooJZEREPVMO3978-91-05 10:15:00 Test Item Value Reference Range Interpretation Comments Calcium Lvl (test code = Calcium Lvl) 8.9 8.5-10.5 [facility] CenterAyfljqxVEIUTDGFC6640-68-03 10:15:00 Test Item Value Reference Range Interpretation Comments eGFR (test code = eGFR) 116 [facility] CenterDyntoytDJRKNAQAS0033-83-20 10:15:00 Test Item Value Reference Range Interpretation Comments Magnesium Lvl (test code = Magnesium 1.9 1.8-2.4 Lvl) [facility] CenterNzkpkucUVONWYGMB9711-48-74 10:15:00 Test Item Value Reference Range Interpretation Comments Phosphorus (test code = Phosphorus) 4.2 2.5-4.5 [facility] CenterZmioqdjCGWLCGFDA8774-54-64 10:15:00 Test Item Value Reference Range Interpretation Comments Ca Ion WB (test code = Ca Ion WB) 1.23 1.05-1.25 [facility] CenterLmfxpaqUXHRTVCPD2859-49-89 10:15:00 Test Item Value Reference Range Interpretation Comments Ca Ion at pH 7.4 WB (test code = Ca Ion 1.19 1.05-1.25 at pH 7.4 WB) [facility] HospitalYbbnwswEMGOOBQOAT3227-99-55 10:15:00 Test Item Value Reference Range Interpretation Comments WBC (test code = WBC) 10.9 3.7-10.4 [facility] HospitalIdpzyecTJDELVCDHT9468-14-16 10:15:00 Test Item Value Reference Range Interpretation Comments RBC (test code = RBC) 2.89 4.20-5.40 [facility] HospitalIneaaygGGZESYNAKV9827-83-17 10:15:00 Test Item Value Reference Range Interpretation Comments Hgb (test code = Hgb) 8.2 12.0-16.0 [facility] HospitalJwulmorMCRWXGFCBR7085-57-71 10:15:00 Test Item Value Reference Range Interpretation Comments Hct (test code = Hct) 24.5 36.0-48.0 [facility] HospitalZjlyvtrVOIUPTEGZF2169-20-89 10:15:00 Test Item Value Reference Range Interpretation Comments MCV (test code = MCV) 84.7 80.0-98.0 [facility] HospitalBuqgaebCJZGHKEEJA5605-38-17 10:15:00 Test Item Value Reference Range Interpretation Comments MCH (test code = MCH) 28.4 pg 27.0-31.0 [facility] HospitalJfsmzpoBRKMTUKVSA7460-96-64 10:15:00 Test Item Value Reference Range Interpretation Comments MCHC (test code = MCHC) 33.5 32.0-36.0 [facility] HospitalKdgictkLLDOJMPZIV1093-35-20 10:15:00 Test Item Value Reference Range Interpretation Comments RDW (test code = RDW) 13.5 11.5-14.5 [facility] HospitalQkotuduFNFLSIHAIZ6354-96-75 10:15:00 Test Item Value Reference Range Interpretation Comments Platelet (test code = Platelet) 459 879-450 [facility] HospitalUexeqqwFOOJDAWDDP4988-51-96 10:15:00 Test Item Value Reference Range Interpretation Comments MPV (test code = MPV) 8.1 7.4-10.4 [facility]VxrlcktTLGMRZKWZI8560-27-03 10:15:00 Test Item Value Reference Range Interpretation Comments Segs (test code = Segs) 59.9 45.0-75.0 [facility] HospitalEcwdsxjLABXCYNWEF9149-26-57 10:15:00 Test Item Value Reference Range Interpretation Comments Lymphocytes (test code = Lymphocytes) 31.3 20.0-40.0 [facility] HospitalBbkwldcGIPAUOMBBV4180-88-45 10:15:00 Test Item Value Reference Range Interpretation Comments Monocytes (test code = Monocytes) 4.9 2.0-12.0 [facility] HospitalQrsmclmWIVABGQPIS6458-32-90 10:15:00 Test Item Value Reference Range Interpretation Comments Eosinophils (test code = 3.3 See_Comment [A utomated message] The Eosinophils) system which ge nerated this result tra nsmitted reference range : <=4.0. The reference r kyle was not used to int erpret this result as normal/abnormal . [facility] HospitalIvlihodPBBOBAOWRV5798-97-59 10:15:00 Test Item Value Reference Range Interpretation Comments Basophils (test code = 0.6 See_Comment [Aut omated message] The Basophils) system which ge nerated this result tra nsmitted reference range : <=1.0. The reference r kyle was not used to int erpret this result as normal/abnormal . [facility] HospitalBqeblwlQUUDMHSBBY7671-46-47 10:15:00 Test Item Value Reference Range Interpretation Comments Neutrophils # (test code = Neutrophils 6.5 1.5-8.1 #) [facility] HospitalLqsurxnEQVGDRNTOQ1238-59-44 10:15:00 Test Item Value Reference Range Interpretation Comments Lymphocytes # (test code = Lymphocytes 3.4 1.0-5.5 #) [place] 406462-10-30 10:15:00 Test Item Value Reference Range Interpretation Comments Monocytes # (test code 0.5 See_Comment [Aut omated message] The = Monocytes #) system which generated this result tra nsmitted reference range : <=0.8. The reference r kyle was not used to int erpret this result as normal/abnormal . [facility] HospitalUdemlwsJFTIPSWZEK3262-43-72 10:15:00 Test Item Value Reference Range Interpretation Comments Eosinophils # (test code 0.4 See_Comment [A utomated message] The = Eosinophils #) system [facility] h generated this result tra nsmitted reference range : <=0.5. The reference r kyle was not used to int erpret this result as normal/abnormal . [facility] HospitalTuyzuowRROOBAAHXP5075-26-57 10:15:00 Test Item Value Reference Range Interpretation Comments Basophils # (test code 0.1 See_Comment [Aut omated message] The = Basophils #) system which generated this result tra nsmitted reference range : <=0.2. The reference r kyle was not used to int erpret this result as normal/abnormal . [facility] CenterNmljekgBRTBRMVWE7773-78-60 10:15:00 Test Item Value Reference Range Interpretation Comments Glucose Lvl (test code = Glucose Lvl) 141 70-99 [facility] CenterUsnyfgiMVVKHATPE6894-06-49 10:15:00 Test Item Value Reference Range Interpretation Comments BUN (test code = BUN) 12 7-22 [facility] CenterTswrzxyLQZOWPNVZ2609 10:15:00 Test Item Value Reference Range Interpretation Comments Creatinine Lvl (test code = Creatinine 0.42 0.50-1.40 Lvl) [facility] CenterZezqxljAYWFPTXEH9321-49-56 10:15:00 Test Item Value Reference Range Interpretation Comments Sodium Lvl (test code = Sodium Lvl) 135 135-145 [facility] CenterCjimumtQYJZAXZQO8096-37-86 10:15:00 Test Item Value Reference Range Interpretation Comments Potassium Lvl (test code = Potassium 4.2 3.5-5.1 Lvl) [facility] CenterVyblzjzJGEMBIRAH5913-76-17 10:15:00 Test Item Value Reference Range Interpretation Comments Chloride Lvl (test code = Chloride Lvl) 101 95-109 [facility] CenterMtelyilLCQTHLXHD0774-73-44 10:15:00 Test Item Value Reference Range Interpretation Comments CO2 (test code = CO2) 30 24-32 [facility] CenterQozwfirTGASTEJSX1691-85-07 10:15:00 Test Item Value Reference Range Interpretation Comments AGAP (test code = AGAP) 8.2 10.0-20.0 [facility] CenterEdjpmcsFUSOLXTOU0989-54-43 10:15:00 Test Item Value Reference Range Interpretation Comments Calcium Lvl (test code = Calcium Lvl) 8.9 8.5-10.5 [facility] CenterZyvykyfKGEKNVPLM4078-36-63 10:15:00 Test Item Value Reference Range Interpretation Comments eGFR (test code = eGFR) 116 [facility] CenterAbescnzLZJZMQFDD5520-21-28 10:15:00 Test Item Value Reference Range Interpretation Comments Magnesium Lvl (test code = Magnesium 1.9 1.8-2.4 Lvl) [facility] CenterFvcwpysIHTLGKRRH0117-95-75 10:15:00 Test Item Value Reference Range Interpretation Comments Phosphorus (test code = Phosphorus) 4.2 2.5-4.5 [facility] CenterInsoquiXLIULNTGX1431-31-93 10:15:00 Test Item Value Reference Range Interpretation Comments Ca Ion WB (test code = Ca Ion WB) 1.23 1.05-1.25 [facility] CenterIwigndsGNVQQISJH9328-26-71 10:15:00 Test Item Value Reference Range Interpretation Comments Ca Ion at pH 7.4 WB (test code = Ca Ion 1.19 1.05-1.25 at pH 7.4 WB) [facility] HospitalTkdkpzcRDPFHIIRKY2822-58-91 10:15:00 Test Item Value Reference Range Interpretation Comments WBC (test code = WBC) 10.9 3.7-10.4 [facility] HospitalJbgvgatDSXFQXHVHA0025-57-48 10:15:00 Test Item Value Reference Range Interpretation Comments RBC (test code = RBC) 2.89 4.20-5.40 [facility] HospitalJfgxxzuFAQAUIIVUF4441-48-03 10:15:00 Test Item Value Reference Range Interpretation Comments Hgb (test code = Hgb) 8.2 12.0-16.0 [facility] HospitalBpiwwwnBROGKYJNRI3799-66-81 10:15:00 Test Item Value Reference Range Interpretation Comments Hct (test code = Hct) 24.5 36.0-48.0 [place] 406462-10-30 10:15:00 Test Item Value Reference Range Interpretation Comments MCV (test code = MCV) 84.7 80.0-98.0 [place] 406462-10-30 10:15:00 Test Item Value Reference Range Interpretation Comments MCH (test code = MCH) 28.4 pg 27.0-31.0 [facility] HospitalIqdrjguNFZREWSECF2622-49-49 10:15:00 Test Item Value Reference Range Interpretation Comments MCHC (test code = MCHC) 33.5 32.0-36.0 [place] 406462-10-30 10:15:00 Test Item Value Reference Range Interpretation Comments RDW (test code = RDW) 13.5 11.5-14.5 [facility] HospitalGuutgkjNYGGZCKCOS5765-11-79 10:15:00 Test Item Value Reference Range Interpretation Comments Platelet (test code = Platelet) 459 550-955 [facility] HospitalUepofwpQORYAZMGRW1576-97-06 10:15:00 Test Item Value Reference Range Interpretation Comments MPV (test code = MPV) 8.1 7.4-10.4 [facility] HospitalDztyhjxABDFLXUNWU6515-96-75 10:15:00 Test Item Value Reference Range Interpretation Comments Segs (test code = Segs) 59.9 45.0-75.0 [facility] HospitalZiivufrAVKDUODCIY6841-07-78 10:15:00 Test Item Value Reference Range Interpretation Comments Lymphocytes (test code = Lymphocytes) 31.3 20.0-40.0 [place] 406462-10-30 10:15:00 Test Item Value Reference Range Interpretation Comments Monocytes (test code = Monocytes) 4.9 2.0-12.0 [facility] HospitalNirawwpFPYFAAQMSW3932-23-35 10:15:00 Test Item Value Reference Range Interpretation Comments Eosinophils (test code = 3.3 See_Comment [A utomated message] The Eosinophils) system which ge nerated this result tra nsmitted reference range : <=4.0. The reference r kyle was not used to int erpret this result as normal/abnormal . [facility] HospitalPebizslFVQEJNQPUY6063-22-71 10:15:00 Test Item Value Reference Range Interpretation Comments Basophils (test code = 0.6 See_Comment [Aut omated message] The Basophils) system which ge nerated this result tra nsmitted reference range : <=1.0. The reference r kyle was not used to int erpret this result as normal/abnormal . [facility] HospitalFpcdpqpGOBQTNLPFF6683-16-81 10:15:00 Test Item Value Reference Range Interpretation Comments Neutrophils # (test code = Neutrophils 6.5 1.5-8.1 #) [facility] HospitalXyqlavbBCHKGETUML8304-90-18 10:15:00 Test Item Value Reference Range Interpretation Comments Lymphocytes # (test code = Lymphocytes 3.4 1.0-5.5 #) [place] 406462-10-30 10:15:00 Test Item Value Reference Range Interpretation Comments Monocytes # (test code 0.5 See_Comment [Aut omated message] The = Monocytes #) system which generated this result tra nsmitted reference range : <=0.8. The reference r kyle was not used to int erpret this result as normal/abnormal . [facility] HospitalYvzfupuCVMCPYDTIF1172-11-90 10:15:00 Test Item Value Reference Range Interpretation Comments Eosinophils # (test code 0.4 See_Comment [A utomated message] The = Eosinophils #) system whic h generated this result tra nsmitted reference range : <=0.5. The reference r kyle was not used to int erpret this result as normal/abnormal . [facility] HospitalLbnkhekXSYLYGAFOB6974-64-50 10:15:00 Test Item Value Reference Range Interpretation Comments Basophils # (test code 0.1 See_Comment [Aut omated message] The = Basophils #) system which generated this result tra nsmitted reference range : <=0.2. The reference r kyle was not used to int erpret this result as normal/abnormal . [facility] CenterYzlgfuqYTODGVISW0706-76-86 10:15:00 Test Item Value Reference Range Interpretation Comments Glucose Lvl (test code = Glucose Lvl) 141 70-99 [facility] CenterPqqfnaeMYQJHJQVF9158-87-13 10:15:00 Test Item Value Reference Range Interpretation Comments BUN (test code = BUN) 12 7-22 [facility] CenterWdoguuhQBMZHSQOI2127-88-59 10:15:00 Test Item Value Reference Range Interpretation Comments Creatinine Lvl (test code = Creatinine 0.42 0.50-1.40 Lvl) [facility] CenterLujtytjTHDJGIFRD0936-84-52 10:15:00 Test Item Value Reference Range Interpretation Comments Sodium Lvl (test code = Sodium Lvl) 135 135-145 [facility] CenterZtmsjnnZPMVRTQHK6903-31-41 10:15:00 Test Item Value Reference Range Interpretation Comments Potassium Lvl (test code = Potassium 4.2 3.5-5.1 Lvl) [facility] CenterItkkyruQEYCOCYAM0705-51-22 10:15:00 Test Item Value Reference Range Interpretation Comments Chloride Lvl (test code = Chloride Lvl) 101 95-109 [facility] CenterSiszdtdFEXRLKFVI8065-87-08 10:15:00 Test Item Value Reference Range Interpretation Comments CO2 (test code = CO2) 30 24-32 [facility] CenterVsabhfuZATRYZZUV9251-80-95 10:15:00 Test Item Value Reference Range Interpretation Comments AGAP (test code = AGAP) 8.2 10.0-20.0 [facility] CenterTpszcboVDAPGFYSA8668-36-70 10:15:00 Test Item Value Reference Range Interpretation Comments Calcium Lvl (test code = Calcium Lvl) 8.9 8.5-10.5 [facility] CenterCsuutdnYXITNPXHF4668-27-07 10:15:00 Test Item Value Reference Range Interpretation Comments eGFR (test code = eGFR) 116 [facility] CenterXmeppvbTHPHJEUEL2843-97-84 10:15:00 Test Item Value Reference Range Interpretation Comments Magnesium Lvl (test code = Magnesium 1.9 1.8-2.4 Lvl) [facility] CenterZtfcbwoJDNBHEILM9556-80-11 10:15:00 Test Item Value Reference Range Interpretation Comments Phosphorus (test code = Phosphorus) 4.2 2.5-4.5 [facility] CenterDpoejuvWFKRAHPOM3943-35-17 10:15:00 Test Item Value Reference Range Interpretation Comments Ca Ion WB (test code = Ca Ion WB) 1.23 1.05-1.25 [place] 223672-10-30 10:15:00 Test Item Value Reference Range Interpretation Comments Ca Ion at pH 7.4 WB (test code = Ca Ion 1.19 1.05-1.25 at pH 7.4 WB) [facility] HospitalKctimqrLVUQIRNCJA5358-34-50 10:15:00 Test Item Value Reference Range Interpretation Comments WBC (test code = WBC) 10.9 3.7-10.4 [facility] HospitalAwahqakVDTTKQVKEJ0647-27-65 10:15:00 Test Item Value Reference Range Interpretation Comments RBC (test code = RBC) 2.89 4.20-5.40 [facility] HospitalTfyjhynAHDAIOSWRJ4885-25-23 10:15:00 Test Item Value Reference Range Interpretation Comments Hgb (test code = Hgb) 8.2 12.0-16.0 [place] 406462-10-30 10:15:00 Test Item Value Reference Range Interpretation Comments Hct (test code = Hct) 24.5 36.0-48.0 [place] 406462-10-30 10:15:00 Test Item Value Reference Range Interpretation Comments MCV (test code = MCV) 84.7 80.0-98.0 [place] [address]-10-30 10:15:00 Test Item Value Reference Range Interpretation Comments MCH (test code = MCH) 28.4 pg 27.0-31.0 [facility] HospitalTajdobeUAHLONAZHW8604-08-89 10:15:00 Test Item Value Reference Range Interpretation Comments MCHC (test code = MCHC) 33.5 32.0-36.0 [place] 406462-10-30 10:15:00 Test Item Value Reference Range Interpretation Comments RDW (test code = RDW) 13.5 11.5-14.5 [place] 406462-10-30 10:15:00 Test Item Value Reference Range Interpretation Comments Platelet (test code = Platelet) 459 133-450 [place] 406462-10-30 10:15:00 Test Item Value Reference Range Interpretation Comments MPV (test code = MPV) 8.1 7.4-10.4 [place] 406462-10-30 10:15:00 Test Item Value Reference Range Interpretation Comments Segs (test code = Segs) 59.9 45.0-75.0 [place] 406462-10-30 10:15:00 Test Item Value Reference Range Interpretation Comments Lymphocytes (test code = Lymphocytes) 31.3 20.0-40.0 [place] 406462-10-30 10:15:00 Test Item Value Reference Range Interpretation Comments Monocytes (test code = Monocytes) 4.9 2.0-12.0 [facility] HospitalLbmbrxnZZRKSVVOVH6168-76-14 10:15:00 Test Item Value Reference Range Interpretation Comments Eosinophils (test code = 3.3 See_Comment [A utomated message] The Eosinophils) system which ge nerated this result tra nsmitted reference range : <=4.0. The reference r kyle was not used to int erpret this result as normal/abnormal . [facility] HospitalDpfkdraEIOIOAKLEW5611-51-94 10:15:00 Test Item Value Reference Range Interpretation Comments Basophils (test code = 0.6 See_Comment [Aut omated message] The Basophils) system which ge nerated this result tra nsmitted reference range : <=1.0. The reference r kyle was not used to int erpret this result as normal/abnormal . [facility] HospitalBttvbhzCYVMGNQQNU9991-39-30 10:15:00 Test Item Value Reference Range Interpretation Comments Neutrophils # (test code = Neutrophils 6.5 1.5-8.1 #) [facility] HospitalPijdvzzJWIAGBZJYX8238-73-59 10:15:00 Test Item Value Reference Range Interpretation Comments Lymphocytes # (test code = Lymphocytes 3.4 1.0-5.5 #) [facility] HospitalLbyostmABTUXOMVJQ9098-34-53 10:15:00 Test Item Value Reference Range Interpretation Comments Monocytes # (test code 0.5 See_Comment [Aut omated message] The = Monocytes #) system which generated this result tra nsmitted reference range : <=0.8. The reference r kyle was not used to int erpret this result as normal/abnormal . [facility] HospitalLhtzunqHDSBYTQDIH7342-83-54 10:15:00 Test Item Value Reference Range Interpretation Comments Eosinophils # (test code 0.4 See_Comment [A utomated message] The = Eosinophils #) system whic h generated this result tra nsmitted reference range : <=0.5. The reference r kyle was not used to int erpret this result as normal/abnormal . [facility] HospitalEfjqdajSSWNLJCXAA2952-93-50 10:15:00 Test Item Value Reference Range Interpretation Comments Basophils # (test code 0.1 See_Comment [Aut omated message] The = Basophils #) system which generated this result tra nsmitted reference range : <=0.2. The reference r kyle was not used to int erpret this result as normal/abnormal . [facility] CenterMluvaoaBZZVRCWYM0522-24-59 10:15:00 Test Item Value Reference Range Interpretation Comments Glucose Lvl (test code = Glucose Lvl) 141 70-99 [facility] CenterAuzivadYUXEGOEMH6396-09-90 10:15:00 Test Item Value Reference Range Interpretation Comments BUN (test code = BUN) 12 7-22 [place] 223672-10-30 10:15:00 Test Item Value Reference Range Interpretation Comments Creatinine Lvl (test code = Creatinine 0.42 0.50-1.40 Lvl) [facility] CenterSavxfujPWZQNGNOH4630-14-33 10:15:00 Test Item Value Reference Range Interpretation Comments Sodium Lvl (test code = Sodium Lvl) 135 135-145 [facility] CenterIkcfhqjBPLHQCKPK6510-98-77 10:15:00 Test Item Value Reference Range Interpretation Comments Potassium Lvl (test code = Potassium 4.2 3.5-5.1 Lvl) [facility] CenterTaykjgdYNXFGCLRS2165-97-56 10:15:00 Test Item Value Reference Range Interpretation Comments Chloride Lvl (test code = Chloride Lvl) 101 95-109 [place] 223672-10-30 10:15:00 Test Item Value Reference Range Interpretation Comments CO2 (test code = CO2) 30 24-32 [facility] CenterDmttsjeANPCQDFDG8723-23-50 10:15:00 Test Item Value Reference Range Interpretation Comments AGAP (test code = AGAP) 8.2 10.0-20.0 [facility] CenterAxtivkqIBEZMMPXQ5394-83-10 10:15:00 Test Item Value Reference Range Interpretation Comments Calcium Lvl (test code = Calcium Lvl) 8.9 8.5-10.5 [facility] CenterPaqqwonMAZZXVVDR6028-54-89 10:15:00 Test Item Value Reference Range Interpretation Comments eGFR (test code = eGFR) 116 [facility] CenterFcguvmkFIQXNLVJB3360-06-41 10:15:00 Test Item Value Reference Range Interpretation Comments Magnesium Lvl (test code = Magnesium 1.9 1.8-2.4 Lvl) [facility] CenterFbkvdgeOWCWVVEQT3937-09-21 10:15:00 Test Item Value Reference Range Interpretation Comments Phosphorus (test code = Phosphorus) 4.2 2.5-4.5 [facility] CenterJrcdzscXKIYSKQYP4548-18-76 10:15:00 Test Item Value Reference Range Interpretation Comments Ca Ion WB (test code = Ca Ion WB) 1.23 1.05-1.25 [facility] CenterZmarsbyIQPOZIBOD3496-33-69 10:15:00 Test Item Value Reference Range Interpretation Comments Ca Ion at pH 7.4 WB (test code = Ca Ion 1.19 1.05-1.25 at pH 7.4 WB) [facility] HospitalKobvoxrPLVHNOAGUT2513-71-12 10:15:00 Test Item Value Reference Range Interpretation Comments WBC (test code = WBC) 10.9 3.7-10.4 [facility] HospitalDjgsvbeVHGAZTLJAX9597-47-87 10:15:00 Test Item Value Reference Range Interpretation Comments RBC (test code = RBC) 2.89 4.20-5.40 [facility] HospitalFkhhisaWMORQBAJUX1594-10-97 10:15:00 Test Item Value Reference Range Interpretation Comments Hgb (test code = Hgb) 8.2 12.0-16.0 [facility] HospitalNukcfhnHTYISXVFFB1022-91-91 10:15:00 Test Item Value Reference Range Interpretation Comments Hct (test code = Hct) 24.5 36.0-48.0 [facility] HospitalNdwzwtzRBTGPTVFQX1418-62-35 10:15:00 Test Item Value Reference Range Interpretation Comments MCV (test code = MCV) 84.7 80.0-98.0 [place] 406462-10-30 10:15:00 Test Item Value Reference Range Interpretation Comments MCH (test code = MCH) 28.4 pg 27.0-31.0 [facility] HospitalNckpffbJCVTJRLIMR3797-67-46 10:15:00 Test Item Value Reference Range Interpretation Comments MCHC (test code = MCHC) 33.5 32.0-36.0 [place] 406462-10-30 10:15:00 Test Item Value Reference Range Interpretation Comments RDW (test code = RDW) 13.5 11.5-14.5 [facility] HospitalQzemohvQPPJMAJECZ6849-97-36 10:15:00 Test Item Value Reference Range Interpretation Comments Platelet (test code = Platelet) 459 109-450 [facility] HospitalXhbrqyrAUDGDBNSYM8562-35-28 10:15:00 Test Item Value Reference Range Interpretation Comments MPV (test code = MPV) 8.1 7.4-10.4 [place] 406462-10-30 10:15:00 Test Item Value Reference Range Interpretation Comments Segs (test code = Segs) 59.9 45.0-75.0 [place] 406462-10-30 10:15:00 Test Item Value Reference Range Interpretation Comments Lymphocytes (test code = Lymphocytes) 31.3 20.0-40.0 [place] 406462-10-30 10:15:00 Test Item Value Reference Range Interpretation Comments Monocytes (test code = Monocytes) 4.9 2.0-12.0 [place] [address]-10-30 10:15:00 Test Item Value Reference Range Interpretation Comments Eosinophils (test code = 3.3 See_Comment [A utomated message] The Eosinophils) system which ge nerated this result tra nsmitted reference range : <=4.0. The reference r kyle was not used to int erpret this result as normal/abnormal . [place] 406462-10-30 10:15:00 Test Item Value Reference Range Interpretation Comments Basophils (test code = 0.6 See_Comment [Aut omated message] The Basophils) system which ge nerated this result tra nsmitted reference range : <=1.0. The reference r kyle was not used to int erpret this result as normal/abnormal . [place] [address]-10-30 10:15:00 Test Item Value Reference Range Interpretation Comments Neutrophils # (test code = Neutrophils 6.5 1.5-8.1 #) [facility] HospitalOpyxoumGJIOLJUVTL3790-56-11 10:15:00 Test Item Value Reference Range Interpretation Comments Lymphocytes # (test code = Lymphocytes 3.4 1.0-5.5 #) [place] 406462-10-30 10:15:00 Test Item Value Reference Range Interpretation Comments Monocytes # (test code 0.5 See_Comment [Aut omated message] The = Monocytes #) system which generated this result tra nsmitted reference range : <=0.8. The reference r kyle was not used to int erpret this result as normal/abnormal . [place] [address]-10-30 10:15:00 Test Item Value Reference Range Interpretation Comments Eosinophils # (test code 0.4 See_Comment [A utomated message] The = Eosinophils #) system whic h generated this result tra nsmitted reference range : <=0.5. The reference r kyle was not used to int erpret this result as normal/abnormal . [facility] HospitalDddvyagCTEFBTBSNX7687-91-75 10:15:00 Test Item Value Reference Range Interpretation Comments Basophils # (test code 0.1 See_Comment [Aut omated message] The = Basophils #) system which generated this result tra nsmitted reference range : <=0.2. The reference r kyle was not used to int erpret this result as normal/abnormal . [facility] CenterDpqwimhSXNZUGIXT8237-18-38 10:15:00 Test Item Value Reference Range Interpretation Comments Glucose Lvl (test code = Glucose Lvl) 141 70-99 [place] 223672-10-30 10:15:00 Test Item Value Reference Range Interpretation Comments BUN (test code = BUN) 12 7-22 [place] 223672-10-30 10:15:00 Test Item Value Reference Range Interpretation Comments Creatinine Lvl (test code = Creatinine 0.42 0.50-1.40 Lvl) [facility] CenterKcdqncvUFJALXZXY1938-55-51 10:15:00 Test Item Value Reference Range Interpretation Comments Sodium Lvl (test code = Sodium Lvl) 135 135-145 [facility] CenterCeyyxpxFBXHBEGTE9178-78-07 10:15:00 Test Item Value Reference Range Interpretation Comments Potassium Lvl (test code = Potassium 4.2 3.5-5.1 Lvl) [facility] CenterWpvapuaRFXVRIDND9226-79-02 10:15:00 Test Item Value Reference Range Interpretation Comments Chloride Lvl (test code = Chloride Lvl) 101 95-109 [facility] CenterHteehliQHZYGDEXV2889-13-93 10:15:00 Test Item Value Reference Range Interpretation Comments CO2 (test code = CO2) 30 24-32 [facility] CenterCmxrzdhAGINLUFXK0718-54-03 10:15:00 Test Item Value Reference Range Interpretation Comments AGAP (test code = AGAP) 8.2 10.0-20.0 [facility] CenterUnwrvuqGBUUVQHRX4311-09-54 10:15:00 Test Item Value Reference Range Interpretation Comments Calcium Lvl (test code = Calcium Lvl) 8.9 8.5-10.5 [facility] CenterKeirrqwSVHRABBFP5971-52-58 10:15:00 Test Item Value Reference Range Interpretation Comments eGFR (test code = eGFR) 116 [facility] CenterBtyeijaMIGIXUQTX3980-46-07 10:15:00 Test Item Value Reference Range Interpretation Comments Magnesium Lvl (test code = Magnesium 1.9 1.8-2.4 Lvl) [facility] CenterKhrzegrPACHDPACF9739-43-49 10:15:00 Test Item Value Reference Range Interpretation Comments Phosphorus (test code = Phosphorus) 4.2 2.5-4.5 [facility] CenterVsuuytbLTZYJOOVL3347-68-53 10:15:00 Test Item Value Reference Range Interpretation Comments Ca Ion WB (test code = Ca Ion WB) 1.23 1.05-1.25 [facility] CenterDvkqiocCEGSLYESA8852-14-43 10:15:00 Test Item Value Reference Range Interpretation Comments Ca Ion at pH 7.4 WB (test code = Ca Ion 1.19 1.05-1.25 at pH 7.4 WB) [facility]MlbspbfZBDLLCSKJD6725-53-05 10:15:00 Test Item Value Reference Range Interpretation Comments WBC (test code = WBC) 10.9 3.7-10.4 [facility] HospitalDfyvisaJYKVVOLSLE6782-85-32 10:15:00 Test Item Value Reference Range Interpretation Comments RBC (test code = RBC) 2.89 4.20-5.40 [place] 406462-10-30 10:15:00 Test Item Value Reference Range Interpretation Comments Hgb (test code = Hgb) 8.2 12.0-16.0 [place] 406462-10-30 10:15:00 Test Item Value Reference Range Interpretation Comments Hct (test code = Hct) 24.5 36.0-48.0 [place] 406462-10-30 10:15:00 Test Item Value Reference Range Interpretation Comments MCV (test code = MCV) 84.7 80.0-98.0 [facility] HospitalHviqaqoDOETRKWNQJ8764-17-20 10:15:00 Test Item Value Reference Range Interpretation Comments MCH (test code = MCH) 28.4 pg 27.0-31.0 [facility] HospitalUokisnxXTAAYGZXIL8594-65-35 10:15:00 Test Item Value Reference Range Interpretation Comments MCHC (test code = MCHC) 33.5 32.0-36.0 [place] 406462-10-30 10:15:00 Test Item Value Reference Range Interpretation Comments RDW (test code = RDW) 13.5 11.5-14.5 [place] 406462-10-30 10:15:00 Test Item Value Reference Range Interpretation Comments Platelet (test code = Platelet) 459 133450 [facility] HospitalKbtvovhGZYFJZWFQX0268-53-47 10:15:00 Test Item Value Reference Range Interpretation Comments MPV (test code = MPV) 8.1 7.4-10.4 [place] [address]-10-30 10:15:00 Test Item Value Reference Range Interpretation Comments Segs (test code = Segs) 59.9 45.0-75.0 [facility] HospitalGraggjxWLHZZJUPFE5904-58-63 10:15:00 Test Item Value Reference Range Interpretation Comments Lymphocytes (test code = Lymphocytes) 31.3 20.0-40.0 [place] 406462-10-30 10:15:00 Test Item Value Reference Range Interpretation Comments Monocytes (test code = Monocytes) 4.9 2.0-12.0 [place] [address]-10-30 10:15:00 Test Item Value Reference Range Interpretation Comments Eosinophils (test code = 3.3 See_Comment [A utomated message] The Eosinophils) system which ge nerated this result tra nsmitted reference range : <=4.0. The reference r kyle was not used to int erpret this result as normal/abnormal . [facility] HospitalEjoukvbLHAZVTADIO1885-29-23 10:15:00 Test Item Value Reference Range Interpretation Comments Basophils (test code = 0.6 See_Comment [Aut omated message] The Basophils) system which ge nerated this result tra nsmitted reference range : <=1.0. The reference r kyle was not used to int erpret this result as normal/abnormal . [facility] HospitalBwhnfotPXRQYQWSRY9225-55-38 10:15:00 Test Item Value Reference Range Interpretation Comments Neutrophils # (test code = Neutrophils 6.5 1.5-8.1 #) [facility] HospitalMssjcgoGHNVWNLWHX8130-66-28 10:15:00 Test Item Value Reference Range Interpretation Comments Lymphocytes # (test code = Lymphocytes 3.4 1.0-5.5 #) [facility] HospitalBwslbsxKWFUWPKAOF9051-30-53 10:15:00 Test Item Value Reference Range Interpretation Comments Monocytes # (test code 0.5 See_Comment [Aut omated message] The = Monocytes #) system which generated this result tra nsmitted reference range : <=0.8. The reference r kyle was not used to int erpret this result as normal/abnormal . [facility] HospitalDlreaqqBFPVFFSLYI1620-87-17 10:15:00 Test Item Value Reference Range Interpretation Comments Eosinophils # (test code 0.4 See_Comment [A utomated message] The = Eosinophils #) system whic h generated this result tra nsmitted reference range : <=0.5. The reference r kyle was not used to int erpret this result as normal/abnormal . [facility] HospitalYnzcagtWIAFCHIPXQ0995-87-24 10:15:00 Test Item Value Reference Range Interpretation Comments Basophils # (test code 0.1 See_Comment [Aut omated message] The = Basophils #) system which generated this result tra nsmitted reference range : <=0.2. The reference r kyle was not used to int erpret this result as normal/abnormal . [facility] CenterZymdbrkYILXFYVNB0431-03-36 10:15:00 Test Item Value Reference Range Interpretation Comments Glucose Lvl (test code = Glucose Lvl) 141 70-99 [facility] CenterBgyktflCIVEJZPGX2686-82-09 10:15:00 Test Item Value Reference Range Interpretation Comments BUN (test code = BUN) 12 7-22 [facility] CenterOvklyevOYCSKKEXD3099-49-65 10:15:00 Test Item Value Reference Range Interpretation Comments Creatinine Lvl (test code = Creatinine 0.42 0.50-1.40 Lvl) [facility] CenterJzzysckNEKXCWWCM8695-08-77 10:15:00 Test Item Value Reference Range Interpretation Comments Sodium Lvl (test code = Sodium Lvl) 135 135-145 [facility] CenterNmtvprxTFZAEPUCG6131-93-21 10:15:00 Test Item Value Reference Range Interpretation Comments Potassium Lvl (test code = Potassium 4.2 3.5-5.1 Lvl) [facility] CenterLiqjldvFIJTZMXUS4578-44-96 10:15:00 Test Item Value Reference Range Interpretation Comments Chloride Lvl (test code = Chloride Lvl) 101 95-109 [facility] CenterPcgkyxqOXRIKLNZP1569-64-00 10:15:00 Test Item Value Reference Range Interpretation Comments CO2 (test code = CO2) 30 24-32 [facility] CenterCywyjopECTRRUTMD4539-82-74 10:15:00 Test Item Value Reference Range Interpretation Comments AGAP (test code = AGAP) 8.2 10.0-20.0 [facility] CenterUbpikfrJNDDMJTBS8841-80-53 10:15:00 Test Item Value Reference Range Interpretation Comments Calcium Lvl (test code = Calcium Lvl) 8.9 8.5-10.5 [facility] CenterRpogzccGRARYFYQA1390-03-75 10:15:00 Test Item Value Reference Range Interpretation Comments eGFR (test code = eGFR) 116 [facility] CenterCtezmogFDYJWTWFP3441-11-05 10:15:00 Test Item Value Reference Range Interpretation Comments Magnesium Lvl (test code = Magnesium 1.9 1.8-2.4 Lvl) [facility] CenterZcnygtcCYJVASNSD3119-44-36 10:15:00 Test Item Value Reference Range Interpretation Comments Phosphorus (test code = Phosphorus) 4.2 2.5-4.5 [facility] CenterYgnvdbeRLJJAFBPJ7424-78-15 10:15:00 Test Item Value Reference Range Interpretation Comments Ca Ion WB (test code = Ca Ion WB) 1.23 1.05-1.25 [facility] CenterGlrsysyVLNAISBYB9296-86-97 10:15:00 Test Item Value Reference Range Interpretation Comments Ca Ion at pH 7.4 WB (test code = Ca Ion 1.19 1.05-1.25 at pH 7.4 WB) [facility] HospitalYiaknfqTJRHISKSJT3445-22-36 10:15:00 Test Item Value Reference Range Interpretation Comments WBC (test code = WBC) 10.9 3.7-10.4 [facility] HospitalHrqrljtJLUAFUBZAH4348-49-35 10:15:00 Test Item Value Reference Range Interpretation Comments RBC (test code = RBC) 2.89 4.20-5.40 [facility] HospitalIsrelrpWBYVPXUQOW8707-81-88 10:15:00 Test Item Value Reference Range Interpretation Comments Hgb (test code = Hgb) 8.2 12.0-16.0 [facility] HospitalTruijhsKXKGYZYMWZ8012-53-11 10:15:00 Test Item Value Reference Range Interpretation Comments Hct (test code = Hct) 24.5 36.0-48.0 [facility] HospitalKyujyauXLKEBZSWDH6372-66-34 10:15:00 Test Item Value Reference Range Interpretation Comments MCV (test code = MCV) 84.7 80.0-98.0 [facility] HospitalNzwqvduSNWMJNDUEH7307-13-75 10:15:00 Test Item Value Reference Range Interpretation Comments MCH (test code = MCH) 28.4 pg 27.0-31.0 [facility] HospitalTrffjjaAQICMUQRRV4800-36-64 10:15:00 Test Item Value Reference Range Interpretation Comments MCHC (test code = MCHC) 33.5 32.0-36.0 [facility] HospitalVwywbjlIWYGMPUWDI6818-22-86 10:15:00 Test Item Value Reference Range Interpretation Comments RDW (test code = RDW) 13.5 11.5-14.5 [facility] HospitalYrqxwfkYSEFNBIIJS3647-58-84 10:15:00 Test Item Value Reference Range Interpretation Comments Platelet (test code = Platelet) 459 133-450 [facility] HospitalUleejdjYZOBDMEYJX3469-00-74 10:15:00 Test Item Value Reference Range Interpretation Comments MPV (test code = MPV) 8.1 7.4-10.4 [facility] HospitalDaplevwMTFQRMRSUP2732-64-33 10:15:00 Test Item Value Reference Range Interpretation Comments Segs (test code = Segs) 59.9 45.0-75.0 [facility] HospitalSaxsljaJEZAHHEKOE2740-17-32 10:15:00 Test Item Value Reference Range Interpretation Comments Lymphocytes (test code = Lymphocytes) 31.3 20.0-40.0 [facility] HospitalYcnplmzIAFBLIGSWJ2153-25-55 10:15:00 Test Item Value Reference Range Interpretation Comments Monocytes (test code = Monocytes) 4.9 2.0-12.0 [place] 406462-10-30 10:15:00 Test Item Value Reference Range Interpretation Comments Eosinophils (test code = 3.3 See_Comment [A utomated message] The Eosinophils) system which ge nerated this result tra nsmitted reference range : <=4.0. The reference r kyle was not used to int erpret this result as normal/abnormal . [place] [address]-10-30 10:15:00 Test Item Value Reference Range Interpretation Comments Basophils (test code = 0.6 See_Comment [Aut omated message] The Basophils) system which ge nerated this result tra nsmitted reference range : <=1.0. The reference r kyle was not used to int erpret this result as normal/abnormal . [place] 406462-10-30 10:15:00 Test Item Value Reference Range Interpretation Comments Neutrophils # (test code = Neutrophils 6.5 1.5-8.1 #) [place] [address]-10-30 10:15:00 Test Item Value Reference Range Interpretation Comments Lymphocytes # (test code = Lymphocytes 3.4 1.0-5.5 #) [place] [address]-10-30 10:15:00 Test Item Value Reference Range Interpretation Comments Monocytes # (test code 0.5 See_Comment [Aut omated message] The = Monocytes #) system which generated this result tra nsmitted reference range : <=0.8. The reference r kyle was not used to int erpret this result as normal/abnormal . [place] 406462-10-30 10:15:00 Test Item Value Reference Range Interpretation Comments Eosinophils # (test code 0.4 See_Comment [A utomated message] The = Eosinophils #) system whic h generated this result tra nsmitted reference range : <=0.5. The reference r kyle was not used to int erpret this result as normal/abnormal . [place] [address]-10-30 10:15:00 Test Item Value Reference Range Interpretation Comments Basophils # (test code 0.1 See_Comment [Aut omated message] The = Basophils #) system which generated this result tra nsmitted reference range : <=0.2. The reference r kyle was not used to int erpret this result as normal/abnormal . [facility] CenterFyzxbxcVAYESMEES3641-99-07 10:15:00 Test Item Value Reference Range Interpretation Comments Glucose Lvl (test code = Glucose Lvl) 141 70-99 [facility] CenterSwoajpoPBZTSHISR1588-51-11 10:15:00 Test Item Value Reference Range Interpretation Comments BUN (test code = BUN) 12 03-24 [facility] CenterGvgfnjjDWXSSWWGS4239-67-74 10:15:00 Test Item Value Reference Range Interpretation Comments Creatinine Lvl (test code = Creatinine 0.42 0.50-1.40 Lvl) [facility] CenterEtbrxheAKQVMKDNF8818-98-27 10:15:00 Test Item Value Reference Range Interpretation Comments Sodium Lvl (test code = Sodium Lvl) 135 135-145 [facility] CenterRoyvqrlIIEZAMWXP4533-89-37 10:15:00 Test Item Value Reference Range Interpretation Comments Glucose Lvl (test code = Glucose Lvl) 141 70-99 [facility] CenterPghaxhcRBYRRAITF5484-34-66 10:15:00 Test Item Value Reference Range Interpretation Comments BUN (test code = BUN) 12 03-24 [facility] CenterRpwntmwKDQZOJFAI7186-80-73 10:15:00 Test Item Value Reference Range Interpretation Comments Creatinine Lvl (test code = Creatinine 0.42 0.50-1.40 Lvl) [facility] CenterZkqfzkhPLZWRCJOQ6733-23-47 10:15:00 Test Item Value Reference Range Interpretation Comments Sodium Lvl (test code = Sodium Lvl) 135 135-145 [facility] CenterFsdeavqWCLKQEQAW8489-71-28 10:15:00 Test Item Value Reference Range Interpretation Comments Potassium Lvl (test code = Potassium 4.2 3.5-5.1 Lvl) [facility] CenterZipdazsAKHRYSKRQ8688-36-12 10:15:00 Test Item Value Reference Range Interpretation Comments Chloride Lvl (test code = Chloride Lvl) 101 95-109 [facility] CenterIvhybxjYARFUMIOV1524-98-57 10:15:00 Test Item Value Reference Range Interpretation Comments CO2 (test code = CO2) 30 24-32 [facility] CenterAoewxatLXBRJRKYD9212-32-82 10:15:00 Test Item Value Reference Range Interpretation Comments AGAP (test code = AGAP) 8.2 10.0-20.0 [facility] CenterNlseocxGHVYYHNHY6176-55-65 10:15:00 Test Item Value Reference Range Interpretation Comments Calcium Lvl (test code = Calcium Lvl) 8.9 8.5-10.5 [facility] CenterPcwlyxlJZOJRXRCX1748-58-57 10:15:00 Test Item Value Reference Range Interpretation Comments eGFR (test code = eGFR) 116 [facility] CenterBbyhvxfCELIPQYXS7312-43-61 10:15:00 Test Item Value Reference Range Interpretation Comments Magnesium Lvl (test code = Magnesium 1.9 1.8-2.4 Lvl) [facility] CenterQdqzrabTWUUPUUOQ0087-18-51 10:15:00 Test Item Value Reference Range Interpretation Comments Phosphorus (test code = Phosphorus) 4.2 2.5-4.5 [facility] CenterKjtninfKLCOIGVCN2482-77-38 10:15:00 Test Item Value Reference Range Interpretation Comments Ca Ion WB (test code = Ca Ion WB) 1.23 1.05-1.25 [facility] CenterIozalusBQOJFMDSB7125-95-84 10:15:00 Test Item Value Reference Range Interpretation Comments Ca Ion at pH 7.4 WB (test code = Ca Ion 1.19 1.05-1.25 at pH 7.4 WB) [facility] HospitalQluldwzUDUADZLCAG3287-43-95 10:15:00 Test Item Value Reference Range Interpretation Comments WBC (test code = WBC) 10.9 3.7-10.4 [facility] HospitalHlewtojXEUPGJAPLM2584-22-08 10:15:00 Test Item Value Reference Range Interpretation Comments RBC (test code = RBC) 2.89 4.20-5.40 [facility] HospitalLbueuuaBUKBHPBPGC0461-54-25 10:15:00 Test Item Value Reference Range Interpretation Comments Hgb (test code = Hgb) 8.2 12.0-16.0 [place] 406462-10-30 10:15:00 Test Item Value Reference Range Interpretation Comments Hct (test code = Hct) 24.5 36.0-48.0 [facility] HospitalRbneyimFIQUKLJZGT5221-52-00 10:15:00 Test Item Value Reference Range Interpretation Comments MCV (test code = MCV) 84.7 80.0-98.0 [place] 406462-10-30 10:15:00 Test Item Value Reference Range Interpretation Comments MCH (test code = MCH) 28.4 pg 27.0-31.0 [place] 406462-10-30 10:15:00 Test Item Value Reference Range Interpretation Comments MCHC (test code = MCHC) 33.5 32.0-36.0 [facility] HospitalTclnsitODVCRLEADE0875-81-84 10:15:00 Test Item Value Reference Range Interpretation Comments RDW (test code = RDW) 13.5 11.5-14.5 [facility] HospitalHzcpprpSFYVQMTGHA1525-16-29 10:15:00 Test Item Value Reference Range Interpretation Comments Platelet (test code = Platelet) 459 133-450 [place] 406462-10-30 10:15:00 Test Item Value Reference Range Interpretation Comments MPV (test code = MPV) 8.1 7.4-10.4 [place] 406462-10-30 10:15:00 Test Item Value Reference Range Interpretation Comments Segs (test code = Segs) 59.9 45.0-75.0 [facility] HospitalOfdfkztHGKROSJRRE6488-88-94 10:15:00 Test Item Value Reference Range Interpretation Comments Lymphocytes (test code = Lymphocytes) 31.3 20.0-40.0 [facility] HospitalZsroowxOIDQDRIOMV7246-91-87 10:15:00 Test Item Value Reference Range Interpretation Comments Monocytes (test code = Monocytes) 4.9 2.0-12.0 [facility] HospitalNawjtdjTHTELNKAXR2113-57-55 10:15:00 Test Item Value Reference Range Interpretation Comments Eosinophils (test code = 3.3 See_Comment [A utomated message] The Eosinophils) system which ge nerated this result tra nsmitted reference range : <=4.0. The reference r kyle was not used to int erpret this result as normal/abnormal . [facility] HospitalOnxzgeoCQTHNYWIEY1017-62-69 10:15:00 Test Item Value Reference Range Interpretation Comments Basophils (test code = 0.6 See_Comment [Aut omated message] The Basophils) system which ge nerated this result tra nsmitted reference range : <=1.0. The reference r kyle was not used to int erpret this result as normal/abnormal . [place] 406462-10-30 10:15:00 Test Item Value Reference Range Interpretation Comments Neutrophils # (test code = Neutrophils 6.5 1.5-8.1 #) [facility] HospitalUjsqivxWBDJTTDJIN5157-03-89 10:15:00 Test Item Value Reference Range Interpretation Comments Lymphocytes # (test code = Lymphocytes 3.4 1.0-5.5 #) [facility]XqxuacmKULRQNZFSC2254-89-72 10:15:00 Test Item Value Reference Range Interpretation Comments Monocytes # (test code 0.5 See_Comment [Aut omated message] The = Monocytes #) system which generated this result tra nsmitted reference range : <=0.8. The reference r kyle was not used to int erpret this result as normal/abnormal . [facility] CenterGgclwzsDAXGNLPYKL9516-19-94 10:15:00 Test Item Value Reference Range Interpretation Comments Eosinophils # (test code 0.4 See_Comment [A utomated message] The = Eosinophils #) system whic h generated this result tra nsmitted reference range : <=0.5. The reference r kyle was not used to int erpret this result as normal/abnormal . [facility] HospitalYgeihlpREZRYMZLSI1722-39-80 10:15:00 Test Item Value Reference Range Interpretation Comments Basophils # (test code 0.1 See_Comment [Aut omated message] The = Basophils #) system which generated this result tra nsmitted reference range : <=0.2. The reference r kyle was not used to int erpret this result as normal/abnormal . [facility] HospitalAydwnafPLYOOONXR8095-11-65 10:15:00 Test Item Value Reference Range Interpretation Comments Potassium Lvl (test code = Potassium 4.2 3.5-5.1 Lvl) [facility] HospitalLkiaaudFYHTISVNY7459-21-34 10:15:00 Test Item Value Reference Range Interpretation Comments Chloride Lvl (test code = Chloride Lvl) 101 95-109 [facility] HospitalRfeitoeAATGWYTXU5132-81-22 10:15:00 Test Item Value Reference Range Interpretation Comments CO2 (test code = CO2) 30 24-32 [facility] HospitalRgnxsewNOXVCVFFY8309-49-85 10:15:00 Test Item Value Reference Range Interpretation Comments AGAP (test code = AGAP) 8.2 10.0-20.0 [facility] HospitalIazedfqWTSQDLJWC7832-82-89 10:15:00 Test Item Value Reference Range Interpretation Comments Glucose Lvl (test code = Glucose Lvl) 141 70-99 [facility] HospitalBqxijklAFEQNKQAJ4383-10-21 10:15:00 Test Item Value Reference Range Interpretation Comments BUN (test code = BUN) 12 7-22 [facility] CenterNtozaryGKXRQGTCJ7290-26-48 10:15:00 Test Item Value Reference Range Interpretation Comments Creatinine Lvl (test code = Creatinine 0.42 0.50-1.40 Lvl) [facility] CenterNhgszuqOPYCZOTVV4165-10-53 10:15:00 Test Item Value Reference Range Interpretation Comments Calcium Lvl (test code = Calcium Lvl) 8.9 8.5-10.5 [facility] CenterGyjfxajLLDDGRYNW1391-62-97 10:15:00 Test Item Value Reference Range Interpretation Comments Sodium Lvl (test code = Sodium Lvl) 135 135-145 [facility] CenterHcrniirMCOIQZXIL9920-22-48 10:15:00 Test Item Value Reference Range Interpretation Comments Potassium Lvl (test code = Potassium 4.2 3.5-5.1 Lvl) [facility] CenterXrbndagFGHPAVJWU4274-89-44 10:15:00 Test Item Value Reference Range Interpretation Comments Chloride Lvl (test code = Chloride Lvl) 101 95-109 [facility] CenterEyrqsbfSVQZWQFET0074-77-58 10:15:00 Test Item Value Reference Range Interpretation Comments CO2 (test code = CO2) 30 24-32 [facility] CenterZlpgfhkAHMXTYRTS8062-32-82 10:15:00 Test Item Value Reference Range Interpretation Comments AGAP (test code = AGAP) 8.2 10.0-20.0 [facility] CenterYvfhquzZIZGEFOWT8126-92-19 10:15:00 Test Item Value Reference Range Interpretation Comments Calcium Lvl (test code = Calcium Lvl) 8.9 8.5-10.5 [facility] CenterYxbemyuUAIFKDWEV5040-29-57 10:15:00 Test Item Value Reference Range Interpretation Comments eGFR (test code = eGFR) 116 [facility] CenterViovuuxDNLJPSGRN4084-67-21 10:15:00 Test Item Value Reference Range Interpretation Comments Magnesium Lvl (test code = Magnesium 1.9 1.8-2.4 Lvl) [facility] CenterKqxzggcRPQIPFPXQ3766-63-01 10:15:00 Test Item Value Reference Range Interpretation Comments Phosphorus (test code = Phosphorus) 4.2 2.5-4.5 [facility] CenterQrpjdvxGVLQTKILV3709-15-60 10:15:00 Test Item Value Reference Range Interpretation Comments Ca Ion WB (test code = Ca Ion WB) 1.23 1.05-1.25 [facility] CenterMilepwzQYRQLHRRJ0386-01-61 10:15:00 Test Item Value Reference Range Interpretation Comments Ca Ion at pH 7.4 WB (test code = Ca Ion 1.19 1.05-1.25 at pH 7.4 WB) [facility] HospitalHtyelksGRDZAGEKHA3663-54-66 10:15:00 Test Item Value Reference Range Interpretation Comments WBC (test code = WBC) 10.9 3.7-10.4 [facility] HospitalZnpldpgYPPWBJUNIB8638-52-31 10:15:00 Test Item Value Reference Range Interpretation Comments RBC (test code = RBC) 2.89 4.20-5.40 [facility] HospitalJdqwpzqRLLDDGQRPC7697-82-81 10:15:00 Test Item Value Reference Range Interpretation Comments Hgb (test code = Hgb) 8.2 12.0-16.0 [place] 406462-10-30 10:15:00 Test Item Value Reference Range Interpretation Comments Hct (test code = Hct) 24.5 36.0-48.0 [facility] HospitalAwjvlrqVHMNVQNWZU1036-81-50 10:15:00 Test Item Value Reference Range Interpretation Comments MCV (test code = MCV) 84.7 80.0-98.0 [facility] HospitalPbqrepcAEMEJGWXGF8828-47-54 10:15:00 Test Item Value Reference Range Interpretation Comments MCH (test code = MCH) 28.4 pg 27.0-31.0 [facility] HospitalOhvsfklHPSJTHDOYQ7261-81-18 10:15:00 Test Item Value Reference Range Interpretation Comments MCHC (test code = MCHC) 33.5 32.0-36.0 [facility] HospitalZsdnbymDPFEJVXNOI1261-58-77 10:15:00 Test Item Value Reference Range Interpretation Comments RDW (test code = RDW) 13.5 11.5-14.5 [facility] HospitalQejvrhjUOUAWRCUEW1461-66-97 10:15:00 Test Item Value Reference Range Interpretation Comments Platelet (test code = Platelet) 459 553-450 [facility] HospitalEpwdkgmBHFLDRATTG7757-09-87 10:15:00 Test Item Value Reference Range Interpretation Comments MPV (test code = MPV) 8.1 7.4-10.4 [place] 406462-10-30 10:15:00 Test Item Value Reference Range Interpretation Comments Segs (test code = Segs) 59.9 45.0-75.0 [facility] HospitalAlrdsonYYJZWXKXJL2989-98-65 10:15:00 Test Item Value Reference Range Interpretation Comments Lymphocytes (test code = Lymphocytes) 31.3 20.0-40.0 [facility] HospitalZsiicyzFHWGZLEUOZ7435-86-11 10:15:00 Test Item Value Reference Range Interpretation Comments Monocytes (test code = Monocytes) 4.9 2.0-12.0 [place] 406462-10-30 10:15:00 Test Item Value Reference Range Interpretation Comments Eosinophils (test code = 3.3 See_Comment [A utomated message] The Eosinophils) system which ge nerated this result tra nsmitted reference range : <=4.0. The reference r kyle was not used to int erpret this result as normal/abnormal . [facility] HospitalZqmeawhNTUMUQXTXV7926-84-92 10:15:00 Test Item Value Reference Range Interpretation Comments Basophils (test code = 0.6 See_Comment [Aut omated message] The Basophils) system which ge nerated this result tra nsmitted reference range : <=1.0. The reference r kyle was not used to int erpret this result as normal/abnormal . [facility] HospitalPdffyvcFNPYIDEARU1294-80-47 10:15:00 Test Item Value Reference Range Interpretation Comments Neutrophils # (test code = Neutrophils 6.5 1.5-8.1 #) [facility]QulbualPFUJEJNXVG6186-32-87 10:15:00 Test Item Value Reference Range Interpretation Comments Lymphocytes # (test code = Lymphocytes 3.4 1.0-5.5 #) [facility] HospitalLnfugvoLLCRCCZFQZ9357-96-15 10:15:00 Test Item Value Reference Range Interpretation Comments Monocytes # (test code 0.5 See_Comment [Aut omated message] The = Monocytes #) system which generated this result tra nsmitted reference range : <=0.8. The reference r kyle was not used to int erpret this result as normal/abnormal . [facility] HospitalHpdddlnQCXOZJMOBE9839-94-15 10:15:00 Test Item Value Reference Range Interpretation Comments Eosinophils # (test code 0.4 See_Comment [A utomated message] The = Eosinophils #) system whic h generated this result tra nsmitted reference range : <=0.5. The reference r kyle was not used to int erpret this result as normal/abnormal . [facility] HospitalLtvlnfoHRNWTFJCZJ7096-51-76 10:15:00 Test Item Value Reference Range Interpretation Comments Basophils # (test code 0.1 See_Comment [Aut omated message] The = Basophils #) system which generated this result tra nsmitted reference range : <=0.2. The reference r kyle was not used to int erpret this result as normal/abnormal . [facility]BommcdpVHGXCVTIN9939-14-03 10:15:00 Test Item Value Reference Range Interpretation Comments eGFR (test code = eGFR) 116 [facility] CenterQyeuojvFSMTARNMZ2570-60-48 10:15:00 Test Item Value Reference Range Interpretation Comments Magnesium Lvl (test code = Magnesium 1.9 1.8-2.4 Lvl) [facility] CenterEdpajzmMGIDYSIJJ3804-32-52 10:15:00 Test Item Value Reference Range Interpretation Comments Phosphorus (test code = Phosphorus) 4.2 2.5-4.5 [facility] CenterTjpfymvEVAPTCUKQ3892-09-79 10:15:00 Test Item Value Reference Range Interpretation Comments Ca Ion WB (test code = Ca Ion WB) 1.23 1.05-1.25 [facility] CenterRskecjrRZTEBMNPX2561-66-82 10:15:00 Test Item Value Reference Range Interpretation Comments Glucose Lvl (test code = Glucose Lvl) 141 70-99 [facility] CenterPgngscxHYHKWGETS0098-80-90 10:15:00 Test Item Value Reference Range Interpretation Comments BUN (test code = BUN) 12 7-22 [facility] CenterImwbrpcSSJMTMSIB9191-52-60 10:15:00 Test Item Value Reference Range Interpretation Comments Creatinine Lvl (test code = Creatinine 0.42 0.50-1.40 Lvl) [facility] CenterQtsfoitXDPTMEJJT7078-75-71 10:15:00 Test Item Value Reference Range Interpretation Comments Sodium Lvl (test code = Sodium Lvl) 135 135-145 [facility] CenterLqmicorPFODWLCMU5263-95-14 10:15:00 Test Item Value Reference Range Interpretation Comments Potassium Lvl (test code = Potassium 4.2 3.5-5.1 Lvl) [facility] CenterQbmikuaKBJPKUWEO9781-43-11 10:15:00 Test Item Value Reference Range Interpretation Comments Chloride Lvl (test code = Chloride Lvl) 101 95-109 [facility] CenterYnrxlcyCGWBVYPPU6038-02-12 10:15:00 Test Item Value Reference Range Interpretation Comments CO2 (test code = CO2) 30 24-32 [facility] CenterCzjfzweARHYAKFBR1963-87-76 10:15:00 Test Item Value Reference Range Interpretation Comments AGAP (test code = AGAP) 8.2 10.0-20.0 [facility] CenterNyyenmuBTKRJEQEX9109-34-58 10:15:00 Test Item Value Reference Range Interpretation Comments Calcium Lvl (test code = Calcium Lvl) 8.9 8.5-10.5 [facility] CenterZljksxbYHTZFQTJA6369-60-74 10:15:00 Test Item Value Reference Range Interpretation Comments eGFR (test code = eGFR) 116 [facility] CenterCvueshdKCPSHEBOS9301-81-76 10:15:00 Test Item Value Reference Range Interpretation Comments Magnesium Lvl (test code = Magnesium 1.9 1.8-2.4 Lvl) [facility] CenterFfcppocODYSYAZCA7161-57-94 10:15:00 Test Item Value Reference Range Interpretation Comments Phosphorus (test code = Phosphorus) 4.2 2.5-4.5 [facility] CenterLsuriytUNLQPFWGK3221-13-89 10:15:00 Test Item Value Reference Range Interpretation Comments Ca Ion WB (test code = Ca Ion WB) 1.23 1.05-1.25 [facility] CenterJrlutooQUQIMESRO7876-83-32 10:15:00 Test Item Value Reference Range Interpretation Comments Ca Ion at pH 7.4 WB (test code = Ca Ion 1.19 1.05-1.25 at pH 7.4 WB) [facility] HospitalOruwqfwZHCKFFOKMV8933-82-87 10:15:00 Test Item Value Reference Range Interpretation Comments WBC (test code = WBC) 10.9 3.7-10.4 [facility] HospitalKmhrbvpNZXIJWCKYN6443-00-59 10:15:00 Test Item Value Reference Range Interpretation Comments RBC (test code = RBC) 2.89 4.20-5.40 [place] 406462-10-30 10:15:00 Test Item Value Reference Range Interpretation Comments Hgb (test code = Hgb) 8.2 12.0-16.0 [place] 406462-10-30 10:15:00 Test Item Value Reference Range Interpretation Comments Hct (test code = Hct) 24.5 36.0-48.0 [place] 406462-10-30 10:15:00 Test Item Value Reference Range Interpretation Comments MCV (test code = MCV) 84.7 80.0-98.0 [facility] HospitalXqoanmzFUQAVRKGVY8349-02-83 10:15:00 Test Item Value Reference Range Interpretation Comments MCH (test code = MCH) 28.4 pg 27.0-31.0 [facility] HospitalUbruarwYAJMOQRUAI1937-26-99 10:15:00 Test Item Value Reference Range Interpretation Comments MCHC (test code = MCHC) 33.5 32.0-36.0 [place] 406462-10-30 10:15:00 Test Item Value Reference Range Interpretation Comments RDW (test code = RDW) 13.5 11.5-14.5 [facility] HospitalKmjqefcVTOWCBTCBY0626-40-78 10:15:00 Test Item Value Reference Range Interpretation Comments Platelet (test code = Platelet) 459 133-450 [facility] HospitalXtkbyjjJRDEXDQTYD1797-99-72 10:15:00 Test Item Value Reference Range Interpretation Comments MPV (test code = MPV) 8.1 7.4-10.4 [facility] CenterPikuertOTGJKQAAF1945-54-34 10:15:00 Test Item Value Reference Range Interpretation Comments Ca Ion at pH 7.4 WB (test code = Ca Ion 1.19 1.05-1.25 at pH 7.4 WB) [facility] HospitalCdevzszASPNYTWALG0676-81-01 10:15:00 Test Item Value Reference Range Interpretation Comments Segs (test code = Segs) 59.9 45.0-75.0 [facility] HospitalGguuxlsAPGWUIAVKR6492-29-80 10:15:00 Test Item Value Reference Range Interpretation Comments Lymphocytes (test code = Lymphocytes) 31.3 20.0-40.0 [place] 406462-10-30 10:15:00 Test Item Value Reference Range Interpretation Comments Monocytes (test code = Monocytes) 4.9 2.0-12.0 [place] 406462-10-30 10:15:00 Test Item Value Reference Range Interpretation Comments Eosinophils (test code = 3.3 See_Comment [A utomated message] The Eosinophils) system which ge nerated this result tra nsmitted reference range : <=4.0. The reference r kyle was not used to int erpret this result as normal/abnormal . [facility] HospitalDuelsldBBBQOKWZAW1129-76-25 10:15:00 Test Item Value Reference Range Interpretation Comments Basophils (test code = 0.6 See_Comment [Aut omated message] The Basophils) system which ge nerated this result tra nsmitted reference range : <=1.0. The reference r kyle was not used to int erpret this result as normal/abnormal . [place] 406462-10-30 10:15:00 Test Item Value Reference Range Interpretation Comments Neutrophils # (test code = Neutrophils 6.5 1.5-8.1 #) [facility] HospitalUqqanqrHPNCEFJFEH6785-97-97 10:15:00 Test Item Value Reference Range Interpretation Comments Lymphocytes # (test code = Lymphocytes 3.4 1.0-5.5 #) [place] 406462-10-30 10:15:00 Test Item Value Reference Range Interpretation Comments Monocytes # (test code 0.5 See_Comment [Aut omated message] The = Monocytes #) system which generated this result tra nsmitted reference range : <=0.8. The reference r kyle was not used to int erpret this result as normal/abnormal . [place] 406462-10-30 10:15:00 Test Item Value Reference Range Interpretation Comments Eosinophils # (test code 0.4 See_Comment [A utomated message] The = Eosinophils #) system whic h generated this result tra nsmitted reference range : <=0.5. The reference r kyle was not used to int erpret this result as normal/abnormal . [facility] HospitalDawpynlSVGHGTBIJX8045-13-48 10:15:00 Test Item Value Reference Range Interpretation Comments Basophils # (test code 0.1 See_Comment [Aut omated message] The = Basophils #) system which generated this result tra nsmitted reference range : <=0.2. The reference r kyle was not used to int erpret this result as normal/abnormal . [facility] HospitalVcvlwdiUWPZPLFHRC8905-88-44 10:15:00 Test Item Value Reference Range Interpretation Comments WBC (test code = WBC) 10.9 3.7-10.4 [place] 406462-10-30 10:15:00 Test Item Value Reference Range Interpretation Comments RBC (test code = RBC) 2.89 4.20-5.40 [place] 406462-10-30 10:15:00 Test Item Value Reference Range Interpretation Comments Hgb (test code = Hgb) 8.2 12.0-16.0 [place] 406462-10-30 10:15:00 Test Item Value Reference Range Interpretation Comments Hct (test code = Hct) 24.5 36.0-48.0 [facility] CenterEhygvetBAIHHWUOG7106-41-56 10:15:00 Test Item Value Reference Range Interpretation Comments Glucose Lvl (test code = Glucose Lvl) 141 70-99 [facility] CenterDdtpxxtBVGKPVEVS4438-84-23 10:15:00 Test Item Value Reference Range Interpretation Comments BUN (test code = BUN) 12 7-22 [facility] CenterQgxhtezWNQBCKQYE6759-76-94 10:15:00 Test Item Value Reference Range Interpretation Comments Creatinine Lvl (test code = Creatinine 0.42 0.50-1.40 Lvl) [facility] CenterQybppgyPMBTAFSAP9473-74-10 10:15:00 Test Item Value Reference Range Interpretation Comments Sodium Lvl (test code = Sodium Lvl) 135 135-145 [facility] CenterSyxwsqwHGIPWQMAA8787-60-01 10:15:00 Test Item Value Reference Range Interpretation Comments Potassium Lvl (test code = Potassium 4.2 3.5-5.1 Lvl) [facility] CenterOaphjniHCLRUQDCG4222-35-58 10:15:00 Test Item Value Reference Range Interpretation Comments Chloride Lvl (test code = Chloride Lvl) 101 95-109 [facility] CenterXmivpjgXRHCVNCRB0749-29-15 10:15:00 Test Item Value Reference Range Interpretation Comments CO2 (test code = CO2) 30 24-32 [facility] CenterWcysykkIAZOYVKFC7226-04-02 10:15:00 Test Item Value Reference Range Interpretation Comments AGAP (test code = AGAP) 8.2 10.0-20.0 [facility] CenterGqufntdOKCEHDZSE4055-93-57 10:15:00 Test Item Value Reference Range Interpretation Comments Calcium Lvl (test code = Calcium Lvl) 8.9 8.5-10.5 [facility] CenterVjnbbssIPEUCXJMT7153-80-24 10:15:00 Test Item Value Reference Range Interpretation Comments eGFR (test code = eGFR) 116 [facility] CenterIjndzotOEGHHULRF1985-91-58 10:15:00 Test Item Value Reference Range Interpretation Comments Magnesium Lvl (test code = Magnesium 1.9 1.8-2.4 Lvl) [facility] CenterXmedfesVPVLIZPKE6399-27-55 10:15:00 Test Item Value Reference Range Interpretation Comments Phosphorus (test code = Phosphorus) 4.2 2.5-4.5 [facility] CenterCciplqzDWRJTSWPO2048-09-99 10:15:00 Test Item Value Reference Range Interpretation Comments Ca Ion WB (test code = Ca Ion WB) 1.23 1.05-1.25 [facility] CenterUhnkqpwZBFZGDODE2606-55-46 10:15:00 Test Item Value Reference Range Interpretation Comments Ca Ion at pH 7.4 WB (test code = Ca Ion 1.19 1.05-1.25 at pH 7.4 WB) [facility] HospitalLlevzzgHBKBHLTHRH8638-02-36 10:15:00 Test Item Value Reference Range Interpretation Comments WBC (test code = WBC) 10.9 3.7-10.4 [facility] HospitalNlgyjelDSSGJYZJSA1035-35-55 10:15:00 Test Item Value Reference Range Interpretation Comments RBC (test code = RBC) 2.89 4.20-5.40 [facility] HospitalAyspzavQMLFAOSRBM1427-70-81 10:15:00 Test Item Value Reference Range Interpretation Comments Hgb (test code = Hgb) 8.2 12.0-16.0 [facility] HospitalAmahhmpLDZTFWHPGH9858-87-68 10:15:00 Test Item Value Reference Range Interpretation Comments Hct (test code = Hct) 24.5 36.0-48.0 [facility] HospitalDymwzzoVEOTJCCIAJ2132-38-54 10:15:00 Test Item Value Reference Range Interpretation Comments MCV (test code = MCV) 84.7 80.0-98.0 [facility] HospitalUofzfstVNRVXTMMGY1398-78-07 10:15:00 Test Item Value Reference Range Interpretation Comments MCH (test code = MCH) 28.4 pg 27.0-31.0 [facility] HospitalMtamtycQTEPECDUPK4560-71-58 10:15:00 Test Item Value Reference Range Interpretation Comments MCHC (test code = MCHC) 33.5 32.0-36.0 [facility] HospitalWssrikqRMIBOQOBLO4259-73-34 10:15:00 Test Item Value Reference Range Interpretation Comments RDW (test code = RDW) 13.5 11.5-14.5 [facility] HospitalXidquveUAOMAVLVLS8222-31-09 10:15:00 Test Item Value Reference Range Interpretation Comments Platelet (test code = Platelet) 637 641-321 [facility] HospitalVbmeljiALSPKVNHVY0341-47-49 10:15:00 Test Item Value Reference Range Interpretation Comments MPV (test code = MPV) 8.1 7.4-10.4 [facility] HospitalMsedayrOINNUYQBWQ9635-32-96 10:15:00 Test Item Value Reference Range Interpretation Comments Segs (test code = Segs) 59.9 45.0-75.0 [place] 406462-10-30 10:15:00 Test Item Value Reference Range Interpretation Comments Lymphocytes (test code = Lymphocytes) 31.3 20.0-40.0 [place] 406462-10-30 10:15:00 Test Item Value Reference Range Interpretation Comments Monocytes (test code = Monocytes) 4.9 2.0-12.0 [place] 406462-10-30 10:15:00 Test Item Value Reference Range Interpretation Comments Eosinophils (test code = 3.3 See_Comment [A utomated message] The Eosinophils) system which ge nerated this result tra nsmitted reference range : <=4.0. The reference r kyle was not used to int erpret this result as normal/abnormal . [place] [address]-10-30 10:15:00 Test Item Value Reference Range Interpretation Comments Basophils (test code = 0.6 See_Comment [Aut omated message] The Basophils) system which ge nerated this result tra nsmitted reference range : <=1.0. The reference r kyle was not used to int erpret this result as normal/abnormal . [facility] HospitalLnlmakqRXOMXIIXFA4500-25-76 10:15:00 Test Item Value Reference Range Interpretation Comments Neutrophils # (test code = Neutrophils 6.5 1.5-8.1 #) [place] 406462-10-30 10:15:00 Test Item Value Reference Range Interpretation Comments Lymphocytes # (test code = Lymphocytes 3.4 1.0-5.5 #) [place] 406462-10-30 10:15:00 Test Item Value Reference Range Interpretation Comments Monocytes # (test code 0.5 See_Comment [Aut omated message] The = Monocytes #) system which generated this result tra nsmitted reference range : <=0.8. The reference r kyle was not used to int erpret this result as normal/abnormal . [place] [address]-10-30 10:15:00 Test Item Value Reference Range Interpretation Comments Eosinophils # (test code 0.4 See_Comment [A utomated message] The = Eosinophils #) system whic h generated this result tra nsmitted reference range : <=0.5. The reference r kyle was not used to int erpret this result as normal/abnormal . [facility] HospitalSkqsdmuXWEEJTINJQ4308-51-03 10:15:00 Test Item Value Reference Range Interpretation Comments Basophils # (test code 0.1 See_Comment [Aut omated message] The = Basophils #) system which generated this result tra nsmitted reference range : <=0.2. The reference r kyle was not used to int erpret this result as normal/abnormal . [facility] HospitalTzgrgcxVYODOULERB5099-05-16 10:15:00 Test Item Value Reference Range Interpretation Comments MCV (test code = MCV) 84.7 80.0-98.0 [facility] HospitalRaffimtYGNTWDZKCS3418-37-01 10:15:00 Test Item Value Reference Range Interpretation Comments MCH (test code = MCH) 28.4 pg 27.0-31.0 [facility] HospitalJvikbxuHDBKYFINAE7926-58-32 10:15:00 Test Item Value Reference Range Interpretation Comments MCHC (test code = MCHC) 33.5 32.0-36.0 [facility] HospitalRaqpyefKLBMNXTADZ1108-88-94 10:15:00 Test Item Value Reference Range Interpretation Comments RDW (test code = RDW) 13.5 11.5-14.5 [facility] HospitalQmwcnmnVPSPLRFYGP0181-90-77 10:15:00 Test Item Value Reference Range Interpretation Comments Platelet (test code = Platelet) 459 133-450 [facility] CenterZhwwuynUPZCDPRVW7431-71-64 10:15:00 Test Item Value Reference Range Interpretation Comments Glucose Lvl (test code = Glucose Lvl) 141 70-99 [facility] CenterLeyajubBZZJCMFCB1753-53-82 10:15:00 Test Item Value Reference Range Interpretation Comments BUN (test code = BUN) 12 7-22 [facility] CenterXbqtclxEKNDNJXZT6890-96-73 10:15:00 Test Item Value Reference Range Interpretation Comments Creatinine Lvl (test code = Creatinine 0.42 0.50-1.40 Lvl) [facility] CenterTzpyzbxXQCVNVAUD8484-26-28 10:15:00 Test Item Value Reference Range Interpretation Comments Sodium Lvl (test code = Sodium Lvl) 135 135-145 [facility] CenterCajfvmcGTRWVBBAY3830-04-30 10:15:00 Test Item Value Reference Range Interpretation Comments Potassium Lvl (test code = Potassium 4.2 3.5-5.1 Lvl) [facility] CenterPouasylWJXOZILZD0688-59-68 10:15:00 Test Item Value Reference Range Interpretation Comments Chloride Lvl (test code = Chloride Lvl) 101 95-109 [facility] CenterDvpxqtwLHUSAUZCY6665-96-27 10:15:00 Test Item Value Reference Range Interpretation Comments CO2 (test code = CO2) 30 24-32 [facility] CenterSmzrxjrDMZOKCYJK9111-86-78 10:15:00 Test Item Value Reference Range Interpretation Comments AGAP (test code = AGAP) 8.2 10.0-20.0 [facility] CenterAdzlekjQFBHEUTSU3556-74-66 10:15:00 Test Item Value Reference Range Interpretation Comments Calcium Lvl (test code = Calcium Lvl) 8.9 8.5-10.5 [facility] CenterHrdtgtuUBXCNTNMD1271-24-34 10:15:00 Test Item Value Reference Range Interpretation Comments eGFR (test code = eGFR) 116 [facility] CenterTvgwgxgABCLIBIDF2069-17-16 10:15:00 Test Item Value Reference Range Interpretation Comments Magnesium Lvl (test code = Magnesium 1.9 1.8-2.4 Lvl) [facility] CenterDooocktWMLGVABMC9786-01-93 10:15:00 Test Item Value Reference Range Interpretation Comments Phosphorus (test code = Phosphorus) 4.2 2.5-4.5 [facility] CenterVskmbnwVMPFDPKUW3984-72-57 10:15:00 Test Item Value Reference Range Interpretation Comments Ca Ion WB (test code = Ca Ion WB) 1.23 1.05-1.25 [facility] CenterYrytgsvBTJCCCFKA4504-91-16 10:15:00 Test Item Value Reference Range Interpretation Comments Ca Ion at pH 7.4 WB (test code = Ca Ion 1.19 1.05-1.25 at pH 7.4 WB) [facility] HospitalCxsdmdzKLOWCPATOT1041-22-66 10:15:00 Test Item Value Reference Range Interpretation Comments WBC (test code = WBC) 10.9 3.7-10.4 [facility] HospitalWmlptggWCQFHETDAA0731-80-08 10:15:00 Test Item Value Reference Range Interpretation Comments RBC (test code = RBC) 2.89 4.20-5.40 [facility] HospitalYgabysvWFCBORQOZX5175-89-28 10:15:00 Test Item Value Reference Range Interpretation Comments Hgb (test code = Hgb) 8.2 12.0-16.0 [place] 406462-10-30 10:15:00 Test Item Value Reference Range Interpretation Comments Hct (test code = Hct) 24.5 36.0-48.0 [place] 406462-10-30 10:15:00 Test Item Value Reference Range Interpretation Comments MCV (test code = MCV) 84.7 80.0-98.0 [place] 406462-10-30 10:15:00 Test Item Value Reference Range Interpretation Comments MCH (test code = MCH) 28.4 pg 27.0-31.0 [place] 406462-10-30 10:15:00 Test Item Value Reference Range Interpretation Comments MCHC (test code = MCHC) 33.5 32.0-36.0 [place] 406462-10-30 10:15:00 Test Item Value Reference Range Interpretation Comments RDW (test code = RDW) 13.5 11.5-14.5 [place] 406462-10-30 10:15:00 Test Item Value Reference Range Interpretation Comments Platelet (test code = Platelet) 459 133-450 [facility] HospitalKfccwvtCHDQQGDNWP0645-31-18 10:15:00 Test Item Value Reference Range Interpretation Comments MPV (test code = MPV) 8.1 7.4-10.4 [place] 406462-10-30 10:15:00 Test Item Value Reference Range Interpretation Comments Segs (test code = Segs) 59.9 45.0-75.0 [place] 406462-10-30 10:15:00 Test Item Value Reference Range Interpretation Comments Lymphocytes (test code = Lymphocytes) 31.3 20.0-40.0 [place] 406462-10-30 10:15:00 Test Item Value Reference Range Interpretation Comments Monocytes (test code = Monocytes) 4.9 2.0-12.0 [place] [address]-10-30 10:15:00 Test Item Value Reference Range Interpretation Comments Eosinophils (test code = 3.3 See_Comment [A utomated message] The Eosinophils) system which ge nerated this result tra nsmitted reference range : <=4.0. The reference r kyle was not used to int erpret this result as normal/abnormal . [facility] HospitalTnugpwlDLYCATMVRR0531-50-08 10:15:00 Test Item Value Reference Range Interpretation Comments Basophils (test code = 0.6 See_Comment [Aut omated message] The Basophils) system which ge nerated this result tra nsmitted reference range : <=1.0. The reference r kyle was not used to int erpret this result as normal/abnormal . [facility] HospitalPmpwnzgJERGKVIKNP2120-64-09 10:15:00 Test Item Value Reference Range Interpretation Comments Neutrophils # (test code = Neutrophils 6.5 1.5-8.1 #) [facility] HospitalKacciyhRIIYWBKRDZ1916-49-33 10:15:00 Test Item Value Reference Range Interpretation Comments Lymphocytes # (test code = Lymphocytes 3.4 1.0-5.5 #) [facility] HospitalDxwdefzQHNWFQLBYM6520-66-99 10:15:00 Test Item Value Reference Range Interpretation Comments Monocytes # (test code 0.5 See_Comment [Aut omated message] The = Monocytes #) system which generated this result tra nsmitted reference range : <=0.8. The reference r kyle was not used to int erpret this result as normal/abnormal . [facility] HospitalJciqtmaMLYOQMVGVL6516-69-37 10:15:00 Test Item Value Reference Range Interpretation Comments Eosinophils # (test code 0.4 See_Comment [A utomated message] The = Eosinophils #) system whic h generated this result tra nsmitted reference range : <=0.5. The reference r kyle was not used to int erpret this result as normal/abnormal . [facility] HospitalYjmphdaYMPOEECZSE3510-71-00 10:15:00 Test Item Value Reference Range Interpretation Comments Basophils # (test code 0.1 See_Comment [Aut omated message] The = Basophils #) system which generated this result tra nsmitted reference range : <=0.2. The reference r kyle was not used to int erpret this result as normal/abnormal . [facility] HospitalAvayxguNNIHCOWPDE8689-89-83 10:15:00 Test Item Value Reference Range Interpretation Comments MPV (test code = MPV) 8.1 7.4-10.4 [place] 406462-10-30 10:15:00 Test Item Value Reference Range Interpretation Comments Segs (test code = Segs) 59.9 45.0-75.0 [place] 406462-10-30 10:15:00 Test Item Value Reference Range Interpretation Comments Lymphocytes (test code = Lymphocytes) 31.3 20.0-40.0 [facility] HospitalNbtbtwpFQWBIKTTUM1146-33-41 10:15:00 Test Item Value Reference Range Interpretation Comments Monocytes (test code = Monocytes) 4.9 2.0-12.0 [facility] HospitalQbjflpwVOKNLVRWIV6312-94-30 10:15:00 Test Item Value Reference Range Interpretation Comments Eosinophils (test code = 3.3 See_Comment [A utomated message] The Eosinophils) system which ge nerated this result tra nsmitted reference range : <=4.0. The reference r kyle was not used to int erpret this result as normal/abnormal . [facility] CenterAdewshgFYZPYGHWM7824-71-78 10:15:00 Test Item Value Reference Range Interpretation Comments Glucose Lvl (test code = Glucose Lvl) 141 70-99 [facility] [facility]ZlnpkulPFPUVDCBC8403-95-21 10:15:00 Test Item Value Reference Range Interpretation Comments BUN (test code = BUN) 12 7-22 [facility] CenterJoixipnHIRWGCBOT5854-76-14 10:15:00 Test Item Value Reference Range Interpretation Comments Creatinine Lvl (test code = Creatinine 0.42 0.50-1.40 Lvl) [facility] CenterIqhgksvIRTKORVEP0427-17-31 10:15:00 Test Item Value Reference Range Interpretation Comments Sodium Lvl (test code = Sodium Lvl) 135 135-145 [facility] CenterUiqpvazLFSRPGYES5617-98-64 10:15:00 Test Item Value Reference Range Interpretation Comments Potassium Lvl (test code = Potassium 4.2 3.5-5.1 Lvl) [facility] CenterKdjvmirECZHFDZCE3086-50-50 10:15:00 Test Item Value Reference Range Interpretation Comments Chloride Lvl (test code = Chloride Lvl) 101 95-109 [facility] CenterTycivziXHNGPRXDR9853-18-23 10:15:00 Test Item Value Reference Range Interpretation Comments CO2 (test code = CO2) 30 24-32 [facility] CenterDfqfvgjMAJDAHLXP9947-03-64 10:15:00 Test Item Value Reference Range Interpretation Comments AGAP (test code = AGAP) 8.2 10.0-20.0 [facility] CenterIufwbjpZWAVEDEUN2679-48-00 10:15:00 Test Item Value Reference Range Interpretation Comments Calcium Lvl (test code = Calcium Lvl) 8.9 8.5-10.5 [place] 223672-10-30 10:15:00 Test Item Value Reference Range Interpretation Comments eGFR (test code = eGFR) 116 [facility] CenterKrctiibDOIQOJDZA6660-97-45 10:15:00 Test Item Value Reference Range Interpretation Comments Magnesium Lvl (test code = Magnesium 1.9 1.8-2.4 Lvl) [facility] CenterZtzklwoEMBAGLUGU0044-03-04 10:15:00 Test Item Value Reference Range Interpretation Comments Phosphorus (test code = Phosphorus) 4.2 2.5-4.5 [facility] CenterRwhdervYMEQNRPUU8670-92-60 10:15:00 Test Item Value Reference Range Interpretation Comments Ca Ion WB (test code = Ca Ion WB) 1.23 1.05-1.25 [facility] CenterEczdtekAWUZWLOJJ9985-51-86 10:15:00 Test Item Value Reference Range Interpretation Comments Ca Ion at pH 7.4 WB (test code = Ca Ion 1.19 1.05-1.25 at pH 7.4 WB) [facility]BvvfvviRYUWOGWPVM2844-49-97 10:15:00 Test Item Value Reference Range Interpretation Comments WBC (test code = WBC) 10.9 3.7-10.4 [facility] HospitalSrlnvfpHGCNOZYRIE2311-25-02 10:15:00 Test Item Value Reference Range Interpretation Comments RBC (test code = RBC) 2.89 4.20-5.40 [facility] HospitalPosezakDMHDIISSOP8645-53-38 10:15:00 Test Item Value Reference Range Interpretation Comments Hgb (test code = Hgb) 8.2 12.0-16.0 [facility] HospitalDjbbnlpFPHOENRGJR0578-19-32 10:15:00 Test Item Value Reference Range Interpretation Comments Hct (test code = Hct) 24.5 36.0-48.0 [facility] HospitalDnpssbcFSCJGSYUFM6488-04-57 10:15:00 Test Item Value Reference Range Interpretation Comments MCV (test code = MCV) 84.7 80.0-98.0 [facility] HospitalOscurryELNDSREURS7493-43-89 10:15:00 Test Item Value Reference Range Interpretation Comments MCH (test code = MCH) 28.4 pg 27.0-31.0 [facility] HospitalPisteitNJHLDDVKSO9596-98-29 10:15:00 Test Item Value Reference Range Interpretation Comments MCHC (test code = MCHC) 33.5 32.0-36.0 [place] 406462-10-30 10:15:00 Test Item Value Reference Range Interpretation Comments RDW (test code = RDW) 13.5 11.5-14.5 [place] 406462-10-30 10:15:00 Test Item Value Reference Range Interpretation Comments Platelet (test code = Platelet) 459 133-450 [place] 406462-10-30 10:15:00 Test Item Value Reference Range Interpretation Comments MPV (test code = MPV) 8.1 7.4-10.4 [place] 406462-10-30 10:15:00 Test Item Value Reference Range Interpretation Comments Segs (test code = Segs) 59.9 45.0-75.0 [place] 406462-10-30 10:15:00 Test Item Value Reference Range Interpretation Comments Lymphocytes (test code = Lymphocytes) 31.3 20.0-40.0 [place] 406462-10-30 10:15:00 Test Item Value Reference Range Interpretation Comments Monocytes (test code = Monocytes) 4.9 2.0-12.0 [facility] HospitalMwlfmljSWIRTEUOOA4207-10-56 10:15:00 Test Item Value Reference Range Interpretation Comments Eosinophils (test code = 3.3 See_Comment [A utomated message] The Eosinophils) system which ge nerated this result tra nsmitted reference range : <=4.0. The reference r kyle was not used to int erpret this result as normal/abnormal . [facility] HospitalEeahbvuRPDIAEARUS6085-38-56 10:15:00 Test Item Value Reference Range Interpretation Comments Basophils (test code = 0.6 See_Comment [Aut omated message] The Basophils) system which ge nerated this result tra nsmitted reference range : <=1.0. The reference r kyle was not used to int erpret this result as normal/abnormal . [place] 406462-10-30 10:15:00 Test Item Value Reference Range Interpretation Comments Neutrophils # (test code = Neutrophils 6.5 1.5-8.1 #) [place] 406462-10-30 10:15:00 Test Item Value Reference Range Interpretation Comments Lymphocytes # (test code = Lymphocytes 3.4 1.0-5.5 #) [place] 406462-10-30 10:15:00 Test Item Value Reference Range Interpretation Comments Monocytes # (test code 0.5 See_Comment [Aut omated message] The = Monocytes #) system which generated this result tra nsmitted reference range : <=0.8. The reference r kyle was not used to int erpret this result as normal/abnormal . [facility] HospitalTdgufgdJLJZVOBSPX3959-19-28 10:15:00 Test Item Value Reference Range Interpretation Comments Eosinophils # (test code 0.4 See_Comment [A utomated message] The = Eosinophils #) system whic h generated this result tra nsmitted reference range : <=0.5. The reference r kyle was not used to int erpret this result as normal/abnormal . [facility] HospitalGaknvpbMPRLTNMJAL8006-16-68 10:15:00 Test Item Value Reference Range Interpretation Comments Basophils # (test code 0.1 See_Comment [Aut omated message] The = Basophils #) system which generated this result tra nsmitted reference range : <=0.2. The reference r kyle was not used to int erpret this result as normal/abnormal . [facility] HospitalIumqtvtKIAJXYYCJH4473-12-56 10:15:00 Test Item Value Reference Range Interpretation Comments Basophils (test code = 0.6 See_Comment [Aut omated message] The Basophils) system which ge nerated this result tra nsmitted reference range : <=1.0. The reference r kyle was not used to int erpret this result as normal/abnormal . [facility] HospitalOddridkKXLMGKUVPA3948-03-92 10:15:00 Test Item Value Reference Range Interpretation Comments Neutrophils # (test code = Neutrophils 6.5 1.5-8.1 #) [facility] HospitalWlppiyoBCQWEQYBOL9750-22-07 10:15:00 Test Item Value Reference Range Interpretation Comments Lymphocytes # (test code = Lymphocytes 3.4 1.0-5.5 #) [place] 406462-10-30 10:15:00 Test Item Value Reference Range Interpretation Comments Monocytes # (test code 0.5 See_Comment [Aut omated message] The = Monocytes #) system which generated this result tra nsmitted reference range : <=0.8. The reference r kyle was not used to int erpret this result as normal/abnormal . [facility] CenterDpkuuhyPEBXFTXZY9576-73-38 10:15:00 Test Item Value Reference Range Interpretation Comments Glucose Lvl (test code = Glucose Lvl) 141 70-99 [facility] CenterQyqlcihKUEPFICIC3770-43-40 10:15:00 Test Item Value Reference Range Interpretation Comments BUN (test code = BUN) 12 7-22 [facility] CenterWuboltjAWKWFUMZH1617-88-79 10:15:00 Test Item Value Reference Range Interpretation Comments Creatinine Lvl (test code = Creatinine 0.42 0.50-1.40 Lvl) [facility] CenterLfxepqnVESPXPYWW3140-05-09 10:15:00 Test Item Value Reference Range Interpretation Comments Sodium Lvl (test code = Sodium Lvl) 135 135-145 [facility] CenterKmferbfVYMMFLFPP7081-52-03 10:15:00 Test Item Value Reference Range Interpretation Comments Potassium Lvl (test code = Potassium 4.2 3.5-5.1 Lvl) [facility] CenterWowglagWNVTPADJW6217-71-53 10:15:00 Test Item Value Reference Range Interpretation Comments Chloride Lvl (test code = Chloride Lvl) 101 95-109 [facility] CenterPogqbgrAEPCMTYTG4260-84-91 10:15:00 Test Item Value Reference Range Interpretation Comments CO2 (test code = CO2) 30 24-32 [facility] CenterTaulfwvGRWDDHUBC0120-66-28 10:15:00 Test Item Value Reference Range Interpretation Comments AGAP (test code = AGAP) 8.2 10.0-20.0 [facility]FjqrixaGNCBCJANMG8199-38-35 10:15:00 Test Item Value Reference Range Interpretation Comments Eosinophils # (test code 0.4 See_Comment [A utomated message] The = Eosinophils #) system whic h generated this result tra nsmitted reference range : <=0.5. The reference r kyle was not used to int erpret this result as normal/abnormal . [facility] CenterQtlgxjjRJKGABPJE8076-96-53 10:15:00 Test Item Value Reference Range Interpretation Comments Calcium Lvl (test code = Calcium Lvl) 8.9 8.5-10.5 [facility] CenterVyzpjrrEDUONANCN5322-36-85 10:15:00 Test Item Value Reference Range Interpretation Comments eGFR (test code = eGFR) 116 [facility] CenterRedkvmcRCYHOODCL2790-98-03 10:15:00 Test Item Value Reference Range Interpretation Comments Magnesium Lvl (test code = Magnesium 1.9 1.8-2.4 Lvl) [facility] CenterOcnjvjpZCGVQMGWT7257-05-60 10:15:00 Test Item Value Reference Range Interpretation Comments Phosphorus (test code = Phosphorus) 4.2 2.5-4.5 [facility] CenterUratkadYWEHHLCYX1749-99-68 10:15:00 Test Item Value Reference Range Interpretation Comments Ca Ion WB (test code = Ca Ion WB) 1.23 1.05-1.25 [facility] CenterYklbcliFIQYWJNFX3569-92-12 10:15:00 Test Item Value Reference Range Interpretation Comments Ca Ion at pH 7.4 WB (test code = Ca Ion 1.19 1.05-1.25 at pH 7.4 WB) [facility] HospitalQxjabeaNLAHVCCFKH0652-97-02 10:15:00 Test Item Value Reference Range Interpretation Comments WBC (test code = WBC) 10.9 3.7-10.4 [facility] HospitalDiecjywHSJPHTHEKW9480-76-21 10:15:00 Test Item Value Reference Range Interpretation Comments RBC (test code = RBC) 2.89 4.20-5.40 [facility] HospitalVqcnuxoSEYLZJSGYI7094-71-16 10:15:00 Test Item Value Reference Range Interpretation Comments Hgb (test code = Hgb) 8.2 12.0-16.0 [facility] HospitalJthkdwkBZVDCWNGPO5464-50-18 10:15:00 Test Item Value Reference Range Interpretation Comments Hct (test code = Hct) 24.5 36.0-48.0 [facility] HospitalIqqpezjWUWUAPPLIP4707-92-67 10:15:00 Test Item Value Reference Range Interpretation Comments MCV (test code = MCV) 84.7 80.0-98.0 [facility] HospitalSustecoPCDDIBRNWF8659-31-71 10:15:00 Test Item Value Reference Range Interpretation Comments MCH (test code = MCH) 28.4 pg 27.0-31.0 [facility] HospitalFrnwzceCNWSCFUZAF4546-92-69 10:15:00 Test Item Value Reference Range Interpretation Comments MCHC (test code = MCHC) 33.5 32.0-36.0 [facility] HospitalHigfilzLLJSJHICYQ3906-48-35 10:15:00 Test Item Value Reference Range Interpretation Comments RDW (test code = RDW) 13.5 11.5-14.5 [facility] HospitalPkfxacjVWUABFNTQH8063-12-37 10:15:00 Test Item Value Reference Range Interpretation Comments Platelet (test code = Platelet) 455 056-485 [facility] HospitalAspcfrvUNKBZYDTQV0845-65-69 10:15:00 Test Item Value Reference Range Interpretation Comments MPV (test code = MPV) 8.1 7.4-10.4 [facility] HospitalVkkiqdmHNCSEJXEFD8573-88-75 10:15:00 Test Item Value Reference Range Interpretation Comments Segs (test code = Segs) 59.9 45.0-75.0 [facility] HospitalCmspffgWXJSXJFFOR2003-24-67 10:15:00 Test Item Value Reference Range Interpretation Comments Lymphocytes (test code = Lymphocytes) 31.3 20.0-40.0 [facility] HospitalOupezypAMXKUKPFXU1661-84-81 10:15:00 Test Item Value Reference Range Interpretation Comments Monocytes (test code = Monocytes) 4.9 2.0-12.0 [facility] HospitalNxuxftdNJAOPVDFNP2571-82-06 10:15:00 Test Item Value Reference Range Interpretation Comments Eosinophils (test code = 3.3 See_Comment [A utomated message] The Eosinophils) system which ge nerated this result tra nsmitted reference range : <=4.0. The reference r kyle was not used to int erpret this result as normal/abnormal . [facility] HospitalZfrbanxTXTQNSMAFI0814-47-00 10:15:00 Test Item Value Reference Range Interpretation Comments Basophils (test code = 0.6 See_Comment [Aut omated message] The Basophils) system which ge nerated this result tra nsmitted reference range : <=1.0. The reference r kyle was not used to int erpret this result as normal/abnormal . [facility] HospitalVihcmljMJKZGLLYGR5098-24-10 10:15:00 Test Item Value Reference Range Interpretation Comments Neutrophils # (test code = Neutrophils 6.5 1.5-8.1 #) [facility] HospitalCjuqjioEOVDRMHTNI2166-84-47 10:15:00 Test Item Value Reference Range Interpretation Comments Lymphocytes # (test code = Lymphocytes 3.4 1.0-5.5 #) [place] 406462-10-30 10:15:00 Test Item Value Reference Range Interpretation Comments Monocytes # (test code 0.5 See_Comment [Aut omated message] The = Monocytes #) system which generated this result tra nsmitted reference range : <=0.8. The reference r kyle was not used to int erpret this result as normal/abnormal . [place] 406462-10-30 10:15:00 Test Item Value Reference Range Interpretation Comments Eosinophils # (test code 0.4 See_Comment [A utomated message] The = Eosinophils #) system whic h generated this result tra nsmitted reference range : <=0.5. The reference r kyle was not used to int erpret this result as normal/abnormal . [facility] HospitalHaufjkuDAMYEIZLPZ4021-96-72 10:15:00 Test Item Value Reference Range Interpretation Comments Basophils # (test code 0.1 See_Comment [Aut omated message] The = Basophils #) system which generated this result tra nsmitted reference range : <=0.2. The reference r kyle was not used to int erpret this result as normal/abnormal . [facility] HospitalCfekjjdPKSZUGTNZW4049-95-71 10:15:00 Test Item Value Reference Range Interpretation Comments Basophils # (test code 0.1 See_Comment [Aut omated message] The = Basophils #) system which generated this result tra nsmitted reference range : <=0.2. The reference r kyle was not used to int erpret this result as normal/abnormal . [place] [id number] 16:38:43 Test Item Value Reference Range Interpretation Comments RADRPT (test code = EXAM: MRI CERVICAL SPINE RADRPT) WITHOUT AND WITH CONTRASTDATE: 06/30/2022INDICATION: - infection.COMPARISON: NoneTECHNIQUE: Multiplanar, multisequence, precontrast and postcontrast MR imaging of the cervical spine.IV contrast: Refer to cytology technologist documentationFINDINGS: Numbering: There are 7 cervical, [...] enhancement.3. Moderate right neural foraminal stenosis C6-C7 [facility]wayLzoprqgZHFPTQ6123-71-99 16:38:43 Test Item Value Reference Range Interpretation Comments RADRPT (test code = EXAM: MRI CERVICAL SPINE RADRPT) WITHOUT AND WITH CONTRASTDATE: 06/30/2022INDICATION: - infection.COMPARISON: NoneTECHNIQUE: Multiplanar, multisequence, precontrast and postcontrast MR imaging of the cervical spine.IV contrast: Refer to cytology technologist documentationFINDINGS: Numbering: There are 7 cervical, [...] enhancement.3. Moderate right neural foraminal stenosis C6-C7 [facility] CenterYmilgokBSHJXC7517-43-84 16:38:43 Test Item Value Reference Range Interpretation Comments RADRPT (test code = EXAM: MRI CERVICAL SPINE RADRPT) WITHOUT AND WITH CONTRASTDATE: 06/30/2022INDICATION: - infection.COMPARISON: NoneTECHNIQUE: Multiplanar, multisequence, precontrast and postcontrast MR imaging of the cervical spine.IV contrast: Refer to cytology technologist documentationFINDINGS: Numbering: There are 7 cervical, [...] enhancement.3. Moderate right neural foraminal stenosis C6-C7 [facility] CenterAahehuwCBHEWD5494-24-11 16:38:43 Test Item Value Reference Range Interpretation Comments RADRPT (test code = EXAM: MRI CERVICAL SPINE RADRPT) WITHOUT AND WITH CONTRASTDATE: 06/30/2022INDICATION: - infection.COMPARISON: NoneTECHNIQUE: Multiplanar, multisequence, precontrast and postcontrast MR imaging of the cervical spine.IV contrast: Refer to cytology technologist documentationFINDINGS: Numbering: There are 7 cervical, [...] enhancement.3. Moderate right neural foraminal stenosis C6-C7 [facility] ParkwayCmxeegvPNWZNE3370-89-25 16:38:43 Test Item Value Reference Range Interpretation Comments RADRPT (test code = EXAM: MRI CERVICAL SPINE RADRPT) WITHOUT AND WITH CONTRASTDATE: 06/30/2022INDICATION: - infection.COMPARISON: NoneTECHNIQUE: Multiplanar, multisequence, precontrast and postcontrast MR imaging of the cervical spine.IV contrast: Refer to cytology technologist documentationFINDINGS: Numbering: There are 7 cervical, [...] enhancement.3. Moderate right neural foraminal stenosis C6-C7 [facility] ParkwayThpxbnwSGRWUY2614-91-51 16:38:43 Test Item Value Reference Range Interpretation Comments RADRPT (test code = EXAM: MRI CERVICAL SPINE RADRPT) WITHOUT AND WITH CONTRASTDATE: 06/30/2022INDICATION: - infection.COMPARISON: NoneTECHNIQUE: Multiplanar, multisequence, precontrast and postcontrast MR imaging of the cervical spine.IV contrast: Refer to cytology technologist documentationFINDINGS: Numbering: There are 7 cervical, [...] enhancement.3. Moderate right neural foraminal stenosis C6-C7 [facility] HospitalAmdqlltWXXDVP4207-46-72 16:38:43 Test Item Value Reference Range Interpretation Comments RADRPT (test code = EXAM: MRI CERVICAL SPINE RADRPT) WITHOUT AND WITH CONTRASTDATE: 06/30/2022INDICATION: - infection.COMPARISON: NoneTECHNIQUE: Multiplanar, multisequence, precontrast and postcontrast MR imaging of the cervical spine.IV contrast: Refer to cytology technologist documentationFINDINGS: Numbering: There are 7 cervical, [...] enhancement.3. Moderate right neural foraminal stenosis C6-C7 [facility] RqtihijPINAXG1871-28-00 16:38:43 Test Item Value Reference Range Interpretation Comments RADRPT (test code = EXAM: MRI CERVICAL SPINE RADRPT) WITHOUT AND WITH CONTRASTDATE: 06/30/2022INDICATION: - infection.COMPARISON: NoneTECHNIQUE: Multiplanar, multisequence, precontrast and postcontrast MR imaging of the cervical spine.IV contrast: Refer to cytology technologist documentationFINDINGS: Numbering: There are 7 cervical, [...] enhancement.3. Moderate right neural foraminal stenosis C6-C7 [facility] CenterOdcpritUWSBIG2963-50-38 16:38:43 Test Item Value Reference Range Interpretation Comments RADRPT (test code = EXAM: MRI CERVICAL SPINE RADRPT) WITHOUT AND WITH CONTRASTDATE: 06/30/2022INDICATION: - infection.COMPARISON: NoneTECHNIQUE: Multiplanar, multisequence, precontrast and postcontrast MR imaging of the cervical spine.IV contrast: Refer to cytology technologist documentationFINDINGS: Numbering: There are 7 cervical, [...] enhancement.3. Moderate right neural foraminal stenosis C6-C7 [facility] ParkwayZwkgdxsTAFTTA9128-24-20 16:38:43 Test Item Value Reference Range Interpretation Comments RADRPT (test code = EXAM: MRI CERVICAL SPINE RADRPT) WITHOUT AND WITH CONTRASTDATE: 06/30/2022INDICATION: - infection.COMPARISON: NoneTECHNIQUE: Multiplanar, multisequence, precontrast and postcontrast MR imaging of the cervical spine.IV contrast: Refer to cytology technologist documentationFINDINGS: Numbering: There are 7 cervical, [...] enhancement.3. Moderate right neural foraminal stenosis C6-C7 [facility] ParkwayQbasdaxMWSDSW2609-76-04 16:38:43 Test Item Value Reference Range Interpretation Comments RADRPT (test code = EXAM: MRI CERVICAL SPINE RADRPT) WITHOUT AND WITH CONTRASTDATE: 06/30/2022INDICATION: - infection.COMPARISON: NoneTECHNIQUE: Multiplanar, multisequence, precontrast and postcontrast MR imaging of the cervical spine.IV contrast: Refer to cytology technologist documentationFINDINGS: Numbering: There are 7 cervical, [...] enhancement.3. Moderate right neural foraminal stenosis C6-C7 [facility] ParkwayHcwutuiHNFKXK9633-47-63 16:38:43 Test Item Value Reference Range Interpretation Comments RADRPT (test code = EXAM: MRI CERVICAL SPINE RADRPT) WITHOUT AND WITH CONTRASTDATE: 06/30/2022INDICATION: - infection.COMPARISON: NoneTECHNIQUE: Multiplanar, multisequence, precontrast and postcontrast MR imaging of the cervical spine.IV contrast: Refer to cytology technologist documentationFINDINGS: Numbering: There are 7 cervical, [...] enhancement.3. Moderate right neural foraminal stenosis C6-C7 [facility] CenterQvtprkcBJQACR9448-80-75 16:38:43 Test Item Value Reference Range Interpretation Comments RADRPT (test code = EXAM: MRI CERVICAL SPINE RADRPT) WITHOUT AND WITH CONTRASTDATE: 06/30/2022INDICATION: - infection.COMPARISON: NoneTECHNIQUE: Multiplanar, multisequence, precontrast and postcontrast MR imaging of the cervical spine.IV contrast: Refer to cytology technologist documentationFINDINGS: Numbering: There are 7 cervical, [...] enhancement.3. Moderate right neural foraminal stenosis C6-C7 [facility] CenterXhpnsjwDWLUQA5265-69-66 16:38:43 Test Item Value Reference Range Interpretation Comments RADRPT (test code = EXAM: MRI CERVICAL SPINE RADRPT) WITHOUT AND WITH CONTRASTDATE: 06/30/2022INDICATION: - infection.COMPARISON: NoneTECHNIQUE: Multiplanar, multisequence, precontrast and postcontrast MR imaging of the cervical spine.IV contrast: Refer to cytology technologist documentationFINDINGS: Numbering: There are 7 cervical, [...] enhancement.3. Moderate right neural foraminal stenosis C6-C7 [facility] ParkwayFoxruibKSXHEI6581-42-49 16:38:43 Test Item Value Reference Range Interpretation Comments RADRPT (test code = EXAM: MRI CERVICAL SPINE RADRPT) WITHOUT AND WITH CONTRASTDATE: 06/30/2022INDICATION: - infection.COMPARISON: NoneTECHNIQUE: Multiplanar, multisequence, precontrast and postcontrast MR imaging of the cervical spine.IV contrast: Refer to cytology technologist documentationFINDINGS: Numbering: There are 7 cervical, [...] enhancement.3. Moderate right neural foraminal stenosis C6-C7 [facility]oTovzgycUNFGIL1423-08-43 16:38:43 Test Item Value Reference Range Interpretation Comments RADRPT (test code = EXAM: MRI CERVICAL SPINE RADRPT) WITHOUT AND WITH CONTRASTDATE: 06/30/2022INDICATION: - infection.COMPARISON: NoneTECHNIQUE: Multiplanar, multisequence, precontrast and postcontrast MR imaging of the cervical spine.IV contrast: Refer to cytology technologist documentationFINDINGS: Numbering: There are 7 cervical, [...] enhancement.3. Moderate right neural foraminal stenosis C6-C7 [facility] HospitalTmwbefpAWTAKY6724-54-86 16:38:43 Test Item Value Reference Range Interpretation Comments RADRPT (test code = EXAM: MRI CERVICAL SPINE RADRPT) WITHOUT AND WITH CONTRASTDATE: 06/30/2022INDICATION: - infection.COMPARISON: NoneTECHNIQUE: Multiplanar, multisequence, precontrast and postcontrast MR imaging of the cervical spine.IV contrast: Refer to cytology technologist documentationFINDINGS: Numbering: There are 7 cervical, [...] enhancement.3. Moderate right neural foraminal stenosis C6-C7 [facility] TariqPwjhixlOKMSDV7692-01-80 16:38:43 Test Item Value Reference Range Interpretation Comments RADRPT (test code = EXAM: MRI CERVICAL SPINE RADRPT) WITHOUT AND WITH CONTRASTDATE: 06/30/2022INDICATION: - infection.COMPARISON: NoneTECHNIQUE: Multiplanar, multisequence, precontrast and postcontrast MR imaging of the cervical spine.IV contrast: Refer to cytology technologist documentationFINDINGS: Numbering: There are 7 cervical, [...] enhancement.3. Moderate right neural foraminal stenosis C6-C7 [facility]wayUkoyxdbNUGQCK1878-86-03 16:38:43 Test Item Value Reference Range Interpretation Comments RADRPT (test code = EXAM: MRI CERVICAL SPINE RADRPT) WITHOUT AND WITH CONTRASTDATE: 06/30/2022INDICATION: - infection.COMPARISON: NoneTECHNIQUE: Multiplanar, multisequence, precontrast and postcontrast MR imaging of the cervical spine.IV contrast: Refer to cytology technologist documentationFINDINGS: Numbering: There are 7 cervical, [...] enhancement.3. Moderate right neural foraminal stenosis C6-C7 [facility] ParkwayBizkcctYFMIEK6803-53-92 16:38:43 Test Item Value Reference Range Interpretation Comments RADRPT (test code = EXAM: MRI CERVICAL SPINE RADRPT) WITHOUT AND WITH CONTRASTDATE: 06/30/2022INDICATION: - infection.COMPARISON: NoneTECHNIQUE: Multiplanar, multisequence, precontrast and postcontrast MR imaging of the cervical spine.IV contrast: Refer to cytology technologist documentationFINDINGS: Numbering: There are 7 cervical, [...] enhancement.3. Moderate right neural foraminal stenosis C6-C7 [facility] ParkwayEuhalvrWJXJGZ8116-48-01 16:38:43 Test Item Value Reference Range Interpretation Comments RADRPT (test code = EXAM: MRI CERVICAL SPINE RADRPT) WITHOUT AND WITH CONTRASTDATE: 06/30/2022INDICATION: - infection.COMPARISON: NoneTECHNIQUE: Multiplanar, multisequence, precontrast and postcontrast MR imaging of the cervical spine.IV contrast: Refer to cytology technologist documentationFINDINGS: Numbering: There are 7 cervical, [...] enhancement.3. Moderate right neural foraminal stenosis C6-C7 [facility] CenterZluyntcLQTCOG0665-25-57 16:38:43 Test Item Value Reference Range Interpretation Comments RADRPT (test code = EXAM: MRI CERVICAL SPINE RADRPT) WITHOUT AND WITH CONTRASTDATE: 06/30/2022INDICATION: - infection.COMPARISON: NoneTECHNIQUE: Multiplanar, multisequence, precontrast and postcontrast MR imaging of the cervical spine.IV contrast: Refer to cytology technologist documentationFINDINGS: Numbering: There are 7 cervical, [...] enhancement.3. Moderate right neural foraminal stenosis C6-C7 [facility] CenterIxdgrpnMMKRTK8223-18-12 16:38:43 Test Item Value Reference Range Interpretation Comments RADRPT (test code = EXAM: MRI CERVICAL SPINE RADRPT) WITHOUT AND WITH CONTRASTDATE: 06/30/2022INDICATION: - infection.COMPARISON: NoneTECHNIQUE: Multiplanar, multisequence, precontrast and postcontrast MR imaging of the cervical spine.IV contrast: Refer to cytology technologist documentationFINDINGS: Numbering: There are 7 cervical, [...] enhancement.3. Moderate right neural foraminal stenosis C6-C7 [facility] ParkwaySyppuosXOJDQS8996-81-57 16:38:43 Test Item Value Reference Range Interpretation Comments RADRPT (test code = EXAM: MRI CERVICAL SPINE RADRPT) WITHOUT AND WITH CONTRASTDATE: 06/30/2022INDICATION: - infection.COMPARISON: NoneTECHNIQUE: Multiplanar, multisequence, precontrast and postcontrast MR imaging of the cervical spine.IV contrast: Refer to cytology technologist documentationFINDINGS: Numbering: There are 7 cervical, [...] enhancement.3. Moderate right neural foraminal stenosis C6-C7 [facility]oUkbzoxoULGJNB7085-82-89 16:38:43 Test Item Value Reference Range Interpretation Comments RADRPT (test code = EXAM: MRI CERVICAL SPINE RADRPT) WITHOUT AND WITH CONTRASTDATE: 06/30/2022INDICATION: - infection.COMPARISON: NoneTECHNIQUE: Multiplanar, multisequence, precontrast and postcontrast MR imaging of the cervical spine.IV contrast: Refer to cytology technologist documentationFINDINGS: Numbering: There are 7 cervical, [...] enhancement.3. Moderate right neural foraminal stenosis C6-C7 [facility]LihlczeZWJJYZ7677-01-66 16:38:43 Test Item Value Reference Range Interpretation Comments RADRPT (test code = EXAM: MRI CERVICAL SPINE RADRPT) WITHOUT AND WITH CONTRASTDATE: 06/30/2022INDICATION: - infection.COMPARISON: NoneTECHNIQUE: Multiplanar, multisequence, precontrast and postcontrast MR imaging of the cervical spine.IV contrast: Refer to cytology technologist documentationFINDINGS: Numbering: There are 7 cervical, [...] Moderate right neural foraminal stenosis C6-C7 [facility]wvmnLHVZXG0950-30-04 16:38:43 Test Item Value Reference Range Interpretation Comments RADRPT (test code = EXAM: MRI CERVICAL SPINE RADRPT) WITHOUT AND WITH CONTRASTDATE: 06/30/2022INDICATION: - infection.COMPARISON: NoneTECHNIQUE: Multiplanar, multisequence, precontrast and postcontrast MR imaging of the cervical spine.IV contrast: Refer to cytology technologist documentationFINDINGS: Numbering: There are 7 cervical, [...] enhancement.3. Moderate right neural foraminal stenosis C6-C7 [facility] ZsfcawgDIIZLQ4705-03-77 16:38:43 Test Item Value Reference Range Interpretation Comments RADRPT (test code = EXAM: MRI CERVICAL SPINE RADRPT) WITHOUT AND WITH CONTRASTDATE: 06/30/2022INDICATION: - infection.COMPARISON: NoneTECHNIQUE: Multiplanar, multisequence, precontrast and postcontrast MR imaging of the cervical spine.IV contrast: Refer to cytology technologist documentationFINDINGS: Numbering: There are 7 cervical, [...] enhancement.3. Moderate right neural foraminal stenosis C6-C7 [facility]oWcqodfpNFTEZQ8266-73-22 16:38:43 Test Item Value Reference Range Interpretation Comments RADRPT (test code = EXAM: MRI CERVICAL SPINE RADRPT) WITHOUT AND WITH CONTRASTDATE: 06/30/2022INDICATION: - infection.COMPARISON: NoneTECHNIQUE: Multiplanar, multisequence, precontrast and postcontrast MR imaging of the cervical spine.IV contrast: Refer to cytology technologist documentationFINDINGS: Numbering: There are 7 cervical, [...] enhancement.3. Moderate right neural foraminal stenosis C6-C7 [facility] ParkwayDhjheciQUBSLZ2330-96-63 16:38:43 Test Item Value Reference Range Interpretation Comments RADRPT (test code = EXAM: MRI CERVICAL SPINE RADRPT) WITHOUT AND WITH CONTRASTDATE: 06/30/2022INDICATION: - infection.COMPARISON: NoneTECHNIQUE: Multiplanar, multisequence, precontrast and postcontrast MR imaging of the cervical spine.IV contrast: Refer to cytology technologist documentationFINDINGS: Numbering: There are 7 cervical, [...] enhancement.3. Moderate right neural foraminal stenosis C6-C7 [facility] ParkwayAweympiWYXTHH6546-79-38 16:38:43 Test Item Value Reference Range Interpretation Comments RADRPT (test code = EXAM: MRI CERVICAL SPINE RADRPT) WITHOUT AND WITH CONTRASTDATE: 06/30/2022INDICATION: - infection.COMPARISON: NoneTECHNIQUE: Multiplanar, multisequence, precontrast and postcontrast MR imaging of the cervical spine.IV contrast: Refer to cytology technologist documentationFINDINGS: Numbering: There are 7 cervical, [...] enhancement.3. Moderate right neural foraminal stenosis C6-C7 [facility] ParkwayKhsbpwlMWGCDI3504-79-92 16:38:43 Test Item Value Reference Range Interpretation Comments RADRPT (test code = EXAM: MRI CERVICAL SPINE RADRPT) WITHOUT AND WITH CONTRASTDATE: 06/30/2022INDICATION: - infection.COMPARISON: NoneTECHNIQUE: Multiplanar, multisequence, precontrast and postcontrast MR imaging of the cervical spine.IV contrast: Refer to cytology technologist documentationFINDINGS: Numbering: There are 7 cervical, [...] enhancement.3. Moderate right neural foraminal stenosis C6-C7 [facility] ParkwayTzemuhvDUCGSW0035-53-16 16:38:43 Test Item Value Reference Range Interpretation Comments RADRPT (test code = EXAM: MRI CERVICAL SPINE RADRPT) WITHOUT AND WITH CONTRASTDATE: 06/30/2022INDICATION: - infection.COMPARISON: NoneTECHNIQUE: Multiplanar, multisequence, precontrast and postcontrast MR imaging of the cervical spine.IV contrast: Refer to cytology technologist documentationFINDINGS: Numbering: There are 7 cervical, [...] enhancement.3. Moderate right neural foraminal stenosis C6-C7 [facility] ParkwayCltzemxHBKMUD6500-13-52 16:38:43 Test Item Value Reference Range Interpretation Comments RADRPT (test code = EXAM: MRI CERVICAL SPINE RADRPT) WITHOUT AND WITH CONTRASTDATE: 06/30/2022INDICATION: - infection.COMPARISON: NoneTECHNIQUE: Multiplanar, multisequence, precontrast and postcontrast MR imaging of the cervical spine.IV contrast: Refer to cytology technologist documentationFINDINGS: Numbering: There are 7 cervical, [...] enhancement.3. Moderate right neural foraminal stenosis C6-C7 [facility] CenterUgupkgmMGVVVT2436-01-13 16:38:43 Test Item Value Reference Range Interpretation Comments RADRPT (test code = EXAM: MRI CERVICAL SPINE RADRPT) WITHOUT AND WITH CONTRASTDATE: 06/30/2022INDICATION: - infection.COMPARISON: NoneTECHNIQUE: Multiplanar, multisequence, precontrast and postcontrast MR imaging of the cervical spine.IV contrast: Refer to cytology technologist documentationFINDINGS: Numbering: There are 7 cervical, [...] enhancement.3. Moderate right neural foraminal stenosis C6-C7 [facility] CenterQopahayXTBJKM8780-47-60 16:38:43 Test Item Value Reference Range Interpretation Comments RADRPT (test code = EXAM: MRI CERVICAL SPINE RADRPT) WITHOUT AND WITH CONTRASTDATE: 06/30/2022INDICATION: - infection.COMPARISON: NoneTECHNIQUE: Multiplanar, multisequence, precontrast and postcontrast MR imaging of the cervical spine.IV contrast: Refer to cytology technologist documentationFINDINGS: Numbering: There are 7 cervical, [...] enhancement.3. Moderate right neural foraminal stenosis C6-C7 [facility] ParkwayWgwnspmTLPARU5032-37-39 16:38:43 Test Item Value Reference Range Interpretation Comments RADRPT (test code = EXAM: MRI CERVICAL SPINE RADRPT) WITHOUT AND WITH CONTRASTDATE: 06/30/2022INDICATION: - infection.COMPARISON: NoneTECHNIQUE: Multiplanar, multisequence, precontrast and postcontrast MR imaging of the cervical spine.IV contrast: Refer to cytology technologist documentationFINDINGS: Numbering: There are 7 cervical, [...] enhancement.3. Moderate right neural foraminal stenosis C6-C7 [facility] OsheaVecoomzPCZYQE6590-84-68 16:38:43 Test Item Value Reference Range Interpretation Comments RADRPT (test code = EXAM: MRI CERVICAL SPINE RADRPT) WITHOUT AND WITH CONTRASTDATE: 06/30/2022INDICATION: - infection.COMPARISON: NoneTECHNIQUE: Multiplanar, multisequence, precontrast and postcontrast MR imaging of the cervical spine.IV contrast: Refer to cytology technologist documentationFINDINGS: Numbering: There are 7 cervical, [...] enhancement.3. Moderate right neural foraminal stenosis C6-C7 [facility] CenterDsebbirHDBZBQ4326-03-72 16:38:43 Test Item Value Reference Range Interpretation Comments RADRPT (test code = EXAM: MRI CERVICAL SPINE RADRPT) WITHOUT AND WITH CONTRASTDATE: 06/30/2022INDICATION: - infection.COMPARISON: NoneTECHNIQUE: Multiplanar, multisequence, precontrast and postcontrast MR imaging of the cervical spine.IV contrast: Refer to cytology technologist documentationFINDINGS: Numbering: There are 7 cervical, [...] enhancement.3. Moderate right neural foraminal stenosis C6-C7 [facility] CenterIrwytrgJIRZXR3657-56-83 16:38:43 Test Item Value Reference Range Interpretation Comments RADRPT (test code = EXAM: MRI CERVICAL SPINE RADRPT) WITHOUT AND WITH CONTRASTDATE: 06/30/2022INDICATION: - infection.COMPARISON: NoneTECHNIQUE: Multiplanar, multisequence, precontrast and postcontrast MR imaging of the cervical spine.IV contrast: Refer to cytology technologist documentationFINDINGS: Numbering: There are 7 cervical, [...] enhancement.3. Moderate right neural foraminal stenosis C6-C7 [facility] ParkwayYltwvmvJCSPWQ1728-09-74 16:38:43 Test Item Value Reference Range Interpretation Comments RADRPT (test code = EXAM: MRI CERVICAL SPINE RADRPT) WITHOUT AND WITH CONTRASTDATE: 06/30/2022INDICATION: - infection.COMPARISON: NoneTECHNIQUE: Multiplanar, multisequence, precontrast and postcontrast MR imaging of the cervical spine.IV contrast: Refer to cytology technologist documentationFINDINGS: Numbering: There are 7 cervical, [...] enhancement.3. Moderate right neural foraminal stenosis C6-C7 [facility] ParkwayValibylQSECDC6944-93-91 16:38:43 Test Item Value Reference Range Interpretation Comments RADRPT (test code = EXAM: MRI CERVICAL SPINE RADRPT) WITHOUT AND WITH CONTRASTDATE: 06/30/2022INDICATION: - infection.COMPARISON: NoneTECHNIQUE: Multiplanar, multisequence, precontrast and postcontrast MR imaging of the cervical spine.IV contrast: Refer to cytology technologist documentationFINDINGS: Numbering: There are 7 cervical, [...] enhancement.3. Moderate right neural foraminal stenosis C6-C7 [facility] ParkwayTihlztdIBGSVP6357-49-62 16:38:43 Test Item Value Reference Range Interpretation Comments RADRPT (test code = EXAM: MRI CERVICAL SPINE RADRPT) WITHOUT AND WITH CONTRASTDATE: 06/30/2022INDICATION: - infection.COMPARISON: NoneTECHNIQUE: Multiplanar, multisequence, precontrast and postcontrast MR imaging of the cervical spine.IV contrast: Refer to cytology technologist documentationFINDINGS: Numbering: There are 7 cervical, [...] enhancement.3. Moderate right neural foraminal stenosis C6-C7 [facility] ParkwayWdakoluWELCTG8854-79-72 16:38:43 Test Item Value Reference Range Interpretation Comments RADRPT (test code = EXAM: MRI CERVICAL SPINE RADRPT) WITHOUT AND WITH CONTRASTDATE: 06/30/2022INDICATION: - infection.COMPARISON: NoneTECHNIQUE: Multiplanar, multisequence, precontrast and postcontrast MR imaging of the cervical spine.IV contrast: Refer to cytology technologist documentationFINDINGS: Numbering: There are 7 cervical, [...] enhancement.3. Moderate right neural foraminal stenosis C6-C7 [facility] CenterUqomysdRWMSLF3857-65-48 16:38:43 Test Item Value Reference Range Interpretation Comments RADRPT (test code = EXAM: MRI CERVICAL SPINE RADRPT) WITHOUT AND WITH CONTRASTDATE: 06/30/2022INDICATION: - infection.COMPARISON: NoneTECHNIQUE: Multiplanar, multisequence, precontrast and postcontrast MR imaging of the cervical spine.IV contrast: Refer to cytology technologist documentationFINDINGS: Numbering: There are 7 cervical, [...] enhancement.3. Moderate right neural foraminal stenosis C6-C7 [facility] ParkwayCzfipetDZLVYY3948-74-08 16:38:43 Test Item Value Reference Range Interpretation Comments RADRPT (test code = EXAM: MRI CERVICAL SPINE RADRPT) WITHOUT AND WITH CONTRASTDATE: 06/30/2022INDICATION: - infection.COMPARISON: NoneTECHNIQUE: Multiplanar, multisequence, precontrast and postcontrast MR imaging of the cervical spine.IV contrast: Refer to cytology technologist documentationFINDINGS: Numbering: There are 7 cervical, [...] enhancement.3. Moderate right neural foraminal stenosis C6-C7 [facility] ParkwayOjjxmgzXCCSBB5243-93-75 16:38:43 Test Item Value Reference Range Interpretation Comments RADRPT (test code = EXAM: MRI CERVICAL SPINE RADRPT) WITHOUT AND WITH CONTRASTDATE: 06/30/2022INDICATION: - infection.COMPARISON: NoneTECHNIQUE: Multiplanar, multisequence, precontrast and postcontrast MR imaging of the cervical spine.IV contrast: Refer to cytology technologist documentationFINDINGS: Numbering: There are 7 cervical, [...] enhancement.3. Moderate right neural foraminal stenosis C6-C7 [facility] FicewrkJOUWKS5905-60-82 16:38:43 Test Item Value Reference Range Interpretation Comments RADRPT (test code = EXAM: MRI CERVICAL SPINE RADRPT) WITHOUT AND WITH CONTRASTDATE: 06/30/2022INDICATION: - infection.COMPARISON: NoneTECHNIQUE: Multiplanar, multisequence, precontrast and postcontrast MR imaging of the cervical spine.IV contrast: Refer to cytology technologist documentationFINDINGS: Numbering: There are 7 cervical, [...] enhancement.3. Moderate right neural foraminal stenosis C6-C7 [facility] HospitalTvjmsepKKCHZX8688-95-66 16:38:43 Test Item Value Reference Range Interpretation Comments RADRPT (test code = EXAM: MRI CERVICAL SPINE RADRPT) WITHOUT AND WITH CONTRASTDATE: 06/30/2022INDICATION: - infection.COMPARISON: NoneTECHNIQUE: Multiplanar, multisequence, precontrast and postcontrast MR imaging of the cervical spine.IV contrast: Refer to cytology technologist documentationFINDINGS: Numbering: There are 7 cervical, [...] enhancement.3. Moderate right neural foraminal stenosis C6-C7 [facility] CenterUoeqfhrQFIXNX9552-40-35 16:38:43 Test Item Value Reference Range Interpretation Comments RADRPT (test code = EXAM: MRI CERVICAL SPINE RADRPT) WITHOUT AND WITH CONTRASTDATE: 06/30/2022INDICATION: - infection.COMPARISON: NoneTECHNIQUE: Multiplanar, multisequence, precontrast and postcontrast MR imaging of the cervical spine.IV contrast: Refer to cytology technologist documentationFINDINGS: Numbering: There are 7 cervical, [...] enhancement.3. Moderate right neural foraminal stenosis C6-C7 [facility] CenterAuthmmlKFOQAD5246-84-23 16:38:43 Test Item Value Reference Range Interpretation Comments RADRPT (test code = EXAM: MRI CERVICAL SPINE RADRPT) WITHOUT AND WITH CONTRASTDATE: 06/30/2022INDICATION: - infection.COMPARISON: NoneTECHNIQUE: Multiplanar, multisequence, precontrast and postcontrast MR imaging of the cervical spine.IV contrast: Refer to cytology technologist documentationFINDINGS: Numbering: There are 7 cervical, [...] enhancement.3. Moderate right neural foraminal stenosis C6-C7 [facility] ParkwayIukbgaqHCTQFG8487-83-59 16:38:43 Test Item Value Reference Range Interpretation Comments RADRPT (test code = EXAM: MRI CERVICAL SPINE RADRPT) WITHOUT AND WITH CONTRASTDATE: 06/30/2022INDICATION: - infection.COMPARISON: NoneTECHNIQUE: Multiplanar, multisequence, precontrast and postcontrast MR imaging of the cervical spine.IV contrast: Refer to cytology technologist documentationFINDINGS: Numbering: There are 7 cervical, [...] enhancement.3. Moderate right neural foraminal stenosis C6-C7 [facility] ParkwaySwqjoguVPTNRP9612-25-10 16:38:43 Test Item Value Reference Range Interpretation Comments RADRPT (test code = EXAM: MRI CERVICAL SPINE RADRPT) WITHOUT AND WITH CONTRASTDATE: 06/30/2022INDICATION: - infection.COMPARISON: NoneTECHNIQUE: Multiplanar, multisequence, precontrast and postcontrast MR imaging of the cervical spine.IV contrast: Refer to cytology technologist documentationFINDINGS: Numbering: There are 7 cervical, [...] enhancement.3. Moderate right neural foraminal stenosis C6-C7 [facility] CenterSqqrcavHEISEK6933-06-43 16:38:43 Test Item Value Reference Range Interpretation Comments RADRPT (test code = EXAM: MRI CERVICAL SPINE RADRPT) WITHOUT AND WITH CONTRASTDATE: 06/30/2022INDICATION: - infection.COMPARISON: NoneTECHNIQUE: Multiplanar, multisequence, precontrast and postcontrast MR imaging of the cervical spine.IV contrast: Refer to cytology technologist documentationFINDINGS: Numbering: There are 7 cervical, [...] enhancement.3. Moderate right neural foraminal stenosis C6-C7 [facility] CenterNtxnwvtHLCSRA0145-51-49 16:38:43 Test Item Value Reference Range Interpretation Comments RADRPT (test code = EXAM: MRI CERVICAL SPINE RADRPT) WITHOUT AND WITH CONTRASTDATE: 06/30/2022INDICATION: - infection.COMPARISON: NoneTECHNIQUE: Multiplanar, multisequence, precontrast and postcontrast MR imaging of the cervical spine.IV contrast: Refer to cytology technologist documentationFINDINGS: Numbering: There are 7 cervical, [...] enhancement.3. Moderate right neural foraminal stenosis C6-C7 [facility] ParkwayUmajfnqWKSIEG7494-63-95 16:38:43 Test Item Value Reference Range Interpretation Comments RADRPT (test code = EXAM: MRI CERVICAL SPINE RADRPT) WITHOUT AND WITH CONTRASTDATE: 06/30/2022INDICATION: - infection.COMPARISON: NoneTECHNIQUE: Multiplanar, multisequence, precontrast and postcontrast MR imaging of the cervical spine.IV contrast: Refer to cytology technologist documentationFINDINGS: Numbering: There are 7 cervical, [...] enhancement.3. Moderate right neural foraminal stenosis C6-C7 [facility] ParkwayBqchnpnNOYMOD4147-19-71 16:38:43 Test Item Value Reference Range Interpretation Comments RADRPT (test code = EXAM: MRI CERVICAL SPINE RADRPT) WITHOUT AND WITH CONTRASTDATE: 06/30/2022INDICATION: - infection.COMPARISON: NoneTECHNIQUE: Multiplanar, multisequence, precontrast and postcontrast MR imaging of the cervical spine.IV contrast: Refer to cytology technologist documentationFINDINGS: Numbering: There are 7 cervical, [...] enhancement.3. Moderate right neural foraminal stenosis C6-C7 [facility] HospitalCqmfwccVWMMMP0998-64-67 16:38:43 Test Item Value Reference Range Interpretation Comments RADRPT (test code = EXAM: MRI CERVICAL SPINE RADRPT) WITHOUT AND WITH CONTRASTDATE: 06/30/2022INDICATION: - infection.COMPARISON: NoneTECHNIQUE: Multiplanar, multisequence, precontrast and postcontrast MR imaging of the cervical spine.IV contrast: Refer to cytology technologist documentationFINDINGS: Numbering: There are 7 cervical, [...] enhancement.3. Moderate right neural foraminal stenosis C6-C7 [facility] VignchpFGOKDX0166-75-96 16:38:43 Test Item Value Reference Range Interpretation Comments RADRPT (test code = EXAM: MRI CERVICAL SPINE RADRPT) WITHOUT AND WITH CONTRASTDATE: 06/30/2022INDICATION: - infection.COMPARISON: NoneTECHNIQUE: Multiplanar, multisequence, precontrast and postcontrast MR imaging of the cervical spine.IV contrast: Refer to cytology technologist documentationFINDINGS: Numbering: There are 7 cervical, [...] enhancement.3. Moderate right neural foraminal stenosis C6-C7 [facility] CenterYcexptaPGFHBL9474-05-92 16:38:43 Test Item Value Reference Range Interpretation Comments RADRPT (test code = EXAM: MRI CERVICAL SPINE RADRPT) WITHOUT AND WITH CONTRASTDATE: 06/30/2022INDICATION: - infection.COMPARISON: NoneTECHNIQUE: Multiplanar, multisequence, precontrast and postcontrast MR imaging of the cervical spine.IV contrast: Refer to cytology technologist documentationFINDINGS: Numbering: There are 7 cervical, [...] enhancement.3. Moderate right neural foraminal stenosis C6-C7 [facility] ParkwayTizzhxlWPKJHD3146-35-43 16:38:43 Test Item Value Reference Range Interpretation Comments RADRPT (test code = EXAM: MRI CERVICAL SPINE RADRPT) WITHOUT AND WITH CONTRASTDATE: 06/30/2022INDICATION: - infection.COMPARISON: NoneTECHNIQUE: Multiplanar, multisequence, precontrast and postcontrast MR imaging of the cervical spine.IV contrast: Refer to cytology technologist documentationFINDINGS: Numbering: There are 7 cervical, [...] enhancement.3. Moderate right neural foraminal stenosis C6-C7 [facility] ParkwayLdgagccGOPBON9162-20-45 16:38:43 Test Item Value Reference Range Interpretation Comments RADRPT (test code = EXAM: MRI CERVICAL SPINE RADRPT) WITHOUT AND WITH CONTRASTDATE: 06/30/2022INDICATION: - infection.COMPARISON: NoneTECHNIQUE: Multiplanar, multisequence, precontrast and postcontrast MR imaging of the cervical spine.IV contrast: Refer to cytology technologist documentationFINDINGS: Numbering: There are 7 cervical, [...] enhancement.3. Moderate right neural foraminal stenosis C6-C7 [facility] ParkwayAckhsasPDNXOO8809-43-46 16:38:43 Test Item Value Reference Range Interpretation Comments RADRPT (test code = EXAM: MRI CERVICAL SPINE RADRPT) WITHOUT AND WITH CONTRASTDATE: 06/30/2022INDICATION: - infection.COMPARISON: NoneTECHNIQUE: Multiplanar, multisequence, precontrast and postcontrast MR imaging of the cervical spine.IV contrast: Refer to cytology technologist documentationFINDINGS: Numbering: There are 7 cervical, [...] enhancement.3. Moderate right neural foraminal stenosis C6-C7 [facility] CenterXjekxwnVEEYFW7862-26-41 16:38:43 Test Item Value Reference Range Interpretation Comments RADRPT (test code = EXAM: MRI CERVICAL SPINE RADRPT) WITHOUT AND WITH CONTRASTDATE: 06/30/2022INDICATION: - infection.COMPARISON: NoneTECHNIQUE: Multiplanar, multisequence, precontrast and postcontrast MR imaging of the cervical spine.IV contrast: Refer to cytology technologist documentationFINDINGS: Numbering: There are 7 cervical, [...] enhancement.3. Moderate right neural foraminal stenosis C6-C7 [facility] CenterSyvlsgoHCAZKF5164-26-09 16:38:43 Test Item Value Reference Range Interpretation Comments RADRPT (test code = EXAM: MRI CERVICAL SPINE RADRPT) WITHOUT AND WITH CONTRASTDATE: 06/30/2022INDICATION: - infection.COMPARISON: NoneTECHNIQUE: Multiplanar, multisequence, precontrast and postcontrast MR imaging of the cervical spine.IV contrast: Refer to cytology technologist documentationFINDINGS: Numbering: There are 7 cervical, [...] enhancement.3. Moderate right neural foraminal stenosis C6-C7 [facility] CenterAljhsxlNOABCY0347-44-75 16:38:43 Test Item Value Reference Range Interpretation Comments RADRPT (test code = EXAM: MRI CERVICAL SPINE RADRPT) WITHOUT AND WITH CONTRASTDATE: 06/30/2022INDICATION: - infection.COMPARISON: NoneTECHNIQUE: Multiplanar, multisequence, precontrast and postcontrast MR imaging of the cervical spine.IV contrast: Refer to cytology technologist documentationFINDINGS: Numbering: There are 7 cervical, [...] enhancement.3. Moderate right neural foraminal stenosis C6-C7 [facility]NidbxazRAWOLY2282-11-50 16:38:43 Test Item Value Reference Range Interpretation Comments RADRPT (test code = EXAM: MRI CERVICAL SPINE RADRPT) WITHOUT AND WITH CONTRASTDATE: 06/30/2022INDICATION: - infection.COMPARISON: NoneTECHNIQUE: Multiplanar, multisequence, precontrast and postcontrast MR imaging of the cervical spine.IV contrast: Refer to cytology technologist documentationFINDINGS: Numbering: There are 7 cervical, [...] enhancement.3. Moderate right neural foraminal stenosis C6-C7 [facility]LstrzckSJTXMM0296-17-88 16:38:43 Test Item Value Reference Range Interpretation Comments RADRPT (test code = EXAM: MRI CERVICAL SPINE RADRPT) WITHOUT AND WITH CONTRASTDATE: 06/30/2022INDICATION: - infection.COMPARISON: NoneTECHNIQUE: Multiplanar, multisequence, precontrast and postcontrast MR imaging of the cervical spine.IV contrast: Refer to cytology technologist documentationFINDINGS: Numbering: There are 7 cervical, [...] enhancement.3. Moderate right neural foraminal stenosis C6-C7 Rich TariqGgdgjxcXUJKYE0273-46-73 16:38:43 Test Item Value Reference Range Interpretation Comments RADRPT (test code = EXAM: MRI CERVICAL SPINE RADRPT) WITHOUT AND WITH CONTRASTDATE: 06/30/2022INDICATION: - infection.COMPARISON: NoneTECHNIQUE: Multiplanar, multisequence, precontrast and postcontrast MR imaging of the cervical spine.IV contrast: Refer to cytology technologist documentationFINDINGS: Numbering: There are 7 cervical, [...] enhancement.3. Moderate right neural foraminal stenosis C6-C7 [facility]wayPsffylxMWOZSD6446-31-57 16:38:43 Test Item Value Reference Range Interpretation Comments RADRPT (test code = EXAM: MRI CERVICAL SPINE RADRPT) WITHOUT AND WITH CONTRASTDATE: 06/30/2022INDICATION: - infection.COMPARISON: NoneTECHNIQUE: Multiplanar, multisequence, precontrast and postcontrast MR imaging of the cervical spine.IV contrast: Refer to cytology technologist documentationFINDINGS: Numbering: There are 7 cervical, [...] enhancement.3. Moderate right neural foraminal stenosis C6-C7 [facility] ParkwayViiesacEAWUUK0224-17-82 16:38:43 Test Item Value Reference Range Interpretation Comments RADRPT (test code = EXAM: MRI CERVICAL SPINE RADRPT) WITHOUT AND WITH CONTRASTDATE: 06/30/2022INDICATION: - infection.COMPARISON: NoneTECHNIQUE: Multiplanar, multisequence, precontrast and postcontrast MR imaging of the cervical spine.IV contrast: Refer to cytology technologist documentationFINDINGS: Numbering: There are 7 cervical, [...] enhancement.3. Moderate right neural foraminal stenosis C6-C7 [facility] ParkwayJqvuagtPVXORX5478-29-71 16:38:43 Test Item Value Reference Range Interpretation Comments RADRPT (test code = EXAM: MRI CERVICAL SPINE RADRPT) WITHOUT AND WITH CONTRASTDATE: 06/30/2022INDICATION: - infection.COMPARISON: NoneTECHNIQUE: Multiplanar, multisequence, precontrast and postcontrast MR imaging of the cervical spine.IV contrast: Refer to cytology technologist documentationFINDINGS: Numbering: There are 7 cervical, [...] enhancement.3. Moderate right neural foraminal stenosis C6-C7 [facility] CenterJqvcbpwDWQRVK7998-59-25 16:38:43 Test Item Value Reference Range Interpretation Comments RADRPT (test code = EXAM: MRI CERVICAL SPINE RADRPT) WITHOUT AND WITH CONTRASTDATE: 06/30/2022INDICATION: - infection.COMPARISON: NoneTECHNIQUE: Multiplanar, multisequence, precontrast and postcontrast MR imaging of the cervical spine.IV contrast: Refer to cytology technologist documentationFINDINGS: Numbering: There are 7 cervical, [...] enhancement.3. Moderate right neural foraminal stenosis C6-C7 [facility] CenterNhgkxrfYQFEPN0764-88-27 16:38:43 Test Item Value Reference Range Interpretation Comments RADRPT (test code = EXAM: MRI CERVICAL SPINE RADRPT) WITHOUT AND WITH CONTRASTDATE: 06/30/2022INDICATION: - infection.COMPARISON: NoneTECHNIQUE: Multiplanar, multisequence, precontrast and postcontrast MR imaging of the cervical spine.IV contrast: Refer to cytology technologist documentationFINDINGS: Numbering: There are 7 cervical, [...] enhancement.3. Moderate right neural foraminal stenosis C6-C7 [facility] ParkwayZzjpwscLSCTDZ7943-88-86 16:38:43 Test Item Value Reference Range Interpretation Comments RADRPT (test code = EXAM: MRI CERVICAL SPINE RADRPT) WITHOUT AND WITH CONTRASTDATE: 06/30/2022INDICATION: - infection.COMPARISON: NoneTECHNIQUE: Multiplanar, multisequence, precontrast and postcontrast MR imaging of the cervical spine.IV contrast: Refer to cytology technologist documentationFINDINGS: Numbering: There are 7 cervical, [...] enhancement.3. Moderate right neural foraminal stenosis C6-C7 [facility]oEzryalfAXPNVN8798-85-89 16:38:43 Test Item Value Reference Range Interpretation Comments RADRPT (test code = EXAM: MRI CERVICAL SPINE RADRPT) WITHOUT AND WITH CONTRASTDATE: 06/30/2022INDICATION: - infection.COMPARISON: NoneTECHNIQUE: Multiplanar, multisequence, precontrast and postcontrast MR imaging of the cervical spine.IV contrast: Refer to cytology technologist documentationFINDINGS: Numbering: There are 7 cervical, [...] enhancement.3. Moderate right neural foraminal stenosis C6-C7 [facility] CenterExmvgjzYXYWUA2201-35-56 16:38:43 Test Item Value Reference Range Interpretation Comments RADRPT (test code = EXAM: MRI CERVICAL SPINE RADRPT) WITHOUT AND WITH CONTRASTDATE: 06/30/2022INDICATION: - infection.COMPARISON: NoneTECHNIQUE: Multiplanar, multisequence, precontrast and postcontrast MR imaging of the cervical spine.IV contrast: Refer to cytology technologist documentationFINDINGS: Numbering: There are 7 cervical, [...] enhancement.3. Moderate right neural foraminal stenosis C6-C7 [facility] CenterWmjgmydFYGBAB4698-40-77 16:38:43 Test Item Value Reference Range Interpretation Comments RADRPT (test code = EXAM: MRI CERVICAL SPINE RADRPT) WITHOUT AND WITH CONTRASTDATE: 06/30/2022INDICATION: - infection.COMPARISON: NoneTECHNIQUE: Multiplanar, multisequence, precontrast and postcontrast MR imaging of the cervical spine.IV contrast: Refer to cytology technologist documentationFINDINGS: Numbering: There are 7 cervical, [...] enhancement.3. Moderate right neural foraminal stenosis C6-C7 [facility] LfuroqdEPVSVW5080-33-42 16:38:43 Test Item Value Reference Range Interpretation Comments RADRPT (test code = EXAM: MRI CERVICAL SPINE RADRPT) WITHOUT AND WITH CONTRASTDATE: 06/30/2022INDICATION: - infection.COMPARISON: NoneTECHNIQUE: Multiplanar, multisequence, precontrast and postcontrast MR imaging of the cervical spine.IV contrast: Refer to cytology technologist documentationFINDINGS: Numbering: There are 7 cervical, [...] enhancement.3. Moderate right neural foraminal stenosis C6-C7 [facility]oGfaxljlSNPINH1781-68-80 16:38:43 Test Item Value Reference Range Interpretation Comments RADRPT (test code = EXAM: MRI CERVICAL SPINE RADRPT) WITHOUT AND WITH CONTRASTDATE: 06/30/2022INDICATION: - infection.COMPARISON: NoneTECHNIQUE: Multiplanar, multisequence, precontrast and postcontrast MR imaging of the cervical spine.IV contrast: Refer to cytology technologist documentationFINDINGS: Numbering: There are 7 cervical, [...] enhancement.3. Moderate right neural foraminal stenosis C6-C7 [facility] ParkwayBsmuptpHCOJMN7768-84-28 16:38:43 Test Item Value Reference Range Interpretation Comments RADRPT (test code = EXAM: MRI CERVICAL SPINE RADRPT) WITHOUT AND WITH CONTRASTDATE: 06/30/2022INDICATION: - infection.COMPARISON: NoneTECHNIQUE: Multiplanar, multisequence, precontrast and postcontrast MR imaging of the cervical spine.IV contrast: Refer to cytology technologist documentationFINDINGS: Numbering: There are 7 cervical, [...] enhancement.3. Moderate right neural foraminal stenosis C6-C7 [facility] ParkwayDausyivLEOJJM3451-07-52 16:38:43 Test Item Value Reference Range Interpretation Comments RADRPT (test code = EXAM: MRI CERVICAL SPINE RADRPT) WITHOUT AND WITH CONTRASTDATE: 06/30/2022INDICATION: - infection.COMPARISON: NoneTECHNIQUE: Multiplanar, multisequence, precontrast and postcontrast MR imaging of the cervical spine.IV contrast: Refer to cytology technologist documentationFINDINGS: Numbering: There are 7 cervical, [...] enhancement.3. Moderate right neural foraminal stenosis C6-C7 [facility] CenterJjjndzmJHIQOJ1170-36-59 16:38:43 Test Item Value Reference Range Interpretation Comments RADRPT (test code = EXAM: MRI CERVICAL SPINE RADRPT) WITHOUT AND WITH CONTRASTDATE: 06/30/2022INDICATION: - infection.COMPARISON: NoneTECHNIQUE: Multiplanar, multisequence, precontrast and postcontrast MR imaging of the cervical spine.IV contrast: Refer to cytology technologist documentationFINDINGS: Numbering: There are 7 cervical, [...] enhancement.3. Moderate right neural foraminal stenosis C6-C7 [facility] ParkwayZwozshoWSCOFY2809-29-68 16:38:43 Test Item Value Reference Range Interpretation Comments RADRPT (test code = EXAM: MRI CERVICAL SPINE RADRPT) WITHOUT AND WITH CONTRASTDATE: 06/30/2022INDICATION: - infection.COMPARISON: NoneTECHNIQUE: Multiplanar, multisequence, precontrast and postcontrast MR imaging of the cervical spine.IV contrast: Refer to cytology technologist documentationFINDINGS: Numbering: There are 7 cervical, [...] enhancement.3. Moderate right neural foraminal stenosis C6-C7 [facility] CenterZshozdgOMEHSW2539-11-88 16:38:43 Test Item Value Reference Range Interpretation Comments RADRPT (test code = EXAM: MRI CERVICAL SPINE RADRPT) WITHOUT AND WITH CONTRASTDATE: 06/30/2022INDICATION: - infection.COMPARISON: NoneTECHNIQUE: Multiplanar, multisequence, precontrast and postcontrast MR imaging of the cervical spine.IV contrast: Refer to cytology technologist documentationFINDINGS: Numbering: There are 7 cervical, [...] enhancement.3. Moderate right neural foraminal stenosis C6-C7 [facility] CenterYimsjjmENCNWH0933-14-35 16:38:43 Test Item Value Reference Range Interpretation Comments RADRPT (test code = EXAM: MRI CERVICAL SPINE RADRPT) WITHOUT AND WITH CONTRASTDATE: 06/30/2022INDICATION: - infection.COMPARISON: NoneTECHNIQUE: Multiplanar, multisequence, precontrast and postcontrast MR imaging of the cervical spine.IV contrast: Refer to cytology technologist documentationFINDINGS: Numbering: There are 7 cervical, [...] enhancement.3. Moderate right neural foraminal stenosis C6-C7 [facility] CenterUjvliexILUGSC6842-81-16 16:38:43 Test Item Value Reference Range Interpretation Comments RADRPT (test code = EXAM: MRI CERVICAL SPINE RADRPT) WITHOUT AND WITH CONTRASTDATE: 10/28/2022INDICATION: - infection.COMPARISON: NoneTECHNIQUE: Multiplanar, multisequence, precontrast and postcontrast MR imaging of the cervical spine.IV contrast: Refer to cytology technologist documentationFINDINGS: Numbering: There are 7 cervical, [...] enhancement.3. Moderate right neural foraminal stenosis C6-C7 [place] [id number] 16:38:43 Test Item Value Reference Range Interpretation Comments RADRPT (test code = EXAM: MRI CERVICAL SPINE RADRPT) WITHOUT AND WITH CONTRASTDATE: 06/30/2022INDICATION: - infection.COMPARISON: NoneTECHNIQUE: Multiplanar, multisequence, precontrast and postcontrast MR imaging of the cervical spine.IV contrast: Refer to cytology technologist documentationFINDINGS: Numbering: There are 7 cervical, [...] enhancement.3. Moderate right neural foraminal stenosis C6-C7 Rich TariqPzibwisXEDQZO4057-54-56 16:38:43 Test Item Value Reference Range Interpretation Comments RADRPT (test code = EXAM: MRI CERVICAL SPINE RADRPT) WITHOUT AND WITH CONTRASTDATE: 06/30/2022INDICATION: - infection.COMPARISON: NoneTECHNIQUE: Multiplanar, multisequence, precontrast and postcontrast MR imaging of the cervical spine.IV contrast: Refer to cytology technologist documentationFINDINGS: Numbering: There are 7 cervical, [...] enhancement.3. Moderate right neural foraminal stenosis C6-C7 [facility] ParkwaySrgvrcpENWJPV8371-62-03 16:38:43 Test Item Value Reference Range Interpretation Comments RADRPT (test code = EXAM: MRI CERVICAL SPINE RADRPT) WITHOUT AND WITH CONTRASTDATE: 06/30/2022INDICATION: - infection.COMPARISON: NoneTECHNIQUE: Multiplanar, multisequence, precontrast and postcontrast MR imaging of the cervical spine.IV contrast: Refer to cytology technologist documentationFINDINGS: Numbering: There are 7 cervical, [...] enhancement.3. Moderate right neural foraminal stenosis C6-C7 [facility] CenterZrywjikBVCFWE5431-19-13 16:38:43 Test Item Value Reference Range Interpretation Comments RADRPT (test code = EXAM: MRI CERVICAL SPINE RADRPT) WITHOUT AND WITH CONTRASTDATE: 06/30/2022INDICATION: - infection.COMPARISON: NoneTECHNIQUE: Multiplanar, multisequence, precontrast and postcontrast MR imaging of the cervical spine.IV contrast: Refer to cytology technologist documentationFINDINGS: Numbering: There are 7 cervical, [...] enhancement.3. Moderate right neural foraminal stenosis C6-C7 [facility] ParkwayXxbtvhvMXAWAJ6847-11-76 16:38:43 Test Item Value Reference Range Interpretation Comments RADRPT (test code = EXAM: MRI CERVICAL SPINE RADRPT) WITHOUT AND WITH CONTRASTDATE: 06/30/2022INDICATION: - infection.COMPARISON: NoneTECHNIQUE: Multiplanar, multisequence, precontrast and postcontrast MR imaging of the cervical spine.IV contrast: Refer to cytology technologist documentationFINDINGS: Numbering: There are 7 cervical, [...] enhancement.3. Moderate right neural foraminal stenosis C6-C7 [facility] ParkwayJmknbhiOAWALX1375-58-18 16:38:43 Test Item Value Reference Range Interpretation Comments RADRPT (test code = EXAM: MRI CERVICAL SPINE RADRPT) WITHOUT AND WITH CONTRASTDATE: 06/30/2022INDICATION: - infection.COMPARISON: NoneTECHNIQUE: Multiplanar, multisequence, precontrast and postcontrast MR imaging of the cervical spine.IV contrast: Refer to cytology technologist documentationFINDINGS: Numbering: There are 7 cervical, [...] enhancement.3. Moderate right neural foraminal stenosis C6-C7 [facility]oXqzybeoHNIXON0729-66-18 07:33:51 Test Item Value Reference Range Interpretation [...] examination* Multilevel diffuse degenerative changes are present. [facility]oWggllccNGTPCZ5613-71-11 07:33:51 Test Item Value Reference Range Interpretation [...] examination* Multilevel diffuse degenerative changes are present. [facility] ParkwaySggdhmaJYREDZ2145-50-91 07:33:51 Test Item Value Reference Range Interpretation [...] examination* Multilevel diffuse degenerative changes are present. [facility] ParkwayYawjjvwJCYEQF9747-84-35 07:33:51 Test Item Value Reference Range Interpretation [...] examination* Multilevel diffuse degenerative changes are present. [facility] ParkwayBfjkljeFWSFIW8871-63-82 07:33:51 Test Item Value Reference Range Interpretation [...] examination* Multilevel diffuse degenerative changes are present. [facility] ParkwayCjxkaaaMRVQNU2097-53-16 07:33:51 Test Item Value Reference Range Interpretation [...] examination* Multilevel diffuse degenerative changes are present. [facility] ParkwayUjhokfzVZREPJ1934-56-57 07:33:51 Test Item Value Reference Range Interpretation [...] examination* Multilevel diffuse degenerative changes are present. [facility] ParkwayAuxikggVKCSOJ7227-62-58 07:33:51 Test Item Value Reference Range Interpretation [...] examination* Multilevel diffuse degenerative changes are present. [facility] ParkwayYyemrrtELAAXN2619-55-33 07:33:51 Test Item Value Reference Range Interpretation [...] examination* Multilevel diffuse degenerative changes are present. [facility] ParkwayNjevpemVTNPCV1223-93-42 07:33:51 Test Item Value Reference Range Interpretation [...] examination* Multilevel diffuse degenerative changes are present. [facility] ParkwayKkrsxucRVBWXA6759-56-51 07:33:51 Test Item Value Reference Range Interpretation [...] examination* Multilevel diffuse degenerative changes are present. [facility] ParkwayHdqzwdzPXLCFF5162-99-92 07:33:51 Test Item Value Reference Range Interpretation [...] examination* Multilevel diffuse degenerative changes are present. [facility] ParkwayRxplmgeWFABTO9991-96-44 07:33:51 Test Item Value Reference Range Interpretation [...] examination* Multilevel diffuse degenerative changes are present. [facility] ParkwayUwgyydiCHYKAH3317-65-16 07:33:51 Test Item Value Reference Range Interpretation [...] examination* Multilevel diffuse degenerative changes are present. [facility]oNmylqmbFMOVVD8460-34-04 07:33:51 Test Item Value Reference Range Interpretation [...] examination* Multilevel diffuse degenerative changes are present. [facility]oAfpnhuqYFKRXW1352-94-26 07:33:51 Test Item Value Reference Range Interpretation [...] examination* Multilevel diffuse degenerative changes are present. [facility]oNdwpbqoOXKYDI0105-00-02 07:33:51 Test Item Value Reference Range Interpretation [...] examination* Multilevel diffuse degenerative changes are present. [facility]oIllozjvABLCIS1215-98-59 07:33:51 Test Item Value Reference Range Interpretation [...] examination* Multilevel diffuse degenerative changes are present. [facility]oSuwybpgDRCCNR9622-16-83 07:33:51 Test Item Value Reference Range Interpretation [...] examination* Multilevel diffuse degenerative changes are present. [facility] ParkwayWcadysuABXNEZ0046-67-04 07:33:51 Test Item Value Reference Range Interpretation [...] examination* Multilevel diffuse degenerative changes are present. [facility]oZwbybaiPCUAUW1715-85-66 07:33:51 Test Item Value Reference Range Interpretation [...] examination* Multilevel diffuse degenerative changes are present. [facility] ParkwayGontzxsYTDSOS9922-96-05 07:33:51 Test Item Value Reference Range Interpretation [...] examination* Multilevel diffuse degenerative changes are present. [facility] ParkwayBypyiajESFWLF1391-41-09 07:33:51 Test Item Value Reference Range Interpretation [...] examination* Multilevel diffuse degenerative changes are present. [facility] ParkwayOphbnglDDCBUG1610-99-82 07:33:51 Test Item Value Reference Range Interpretation [...] examination* Multilevel diffuse degenerative changes are present. [facility] ParkwayQjizqcfDNKYIC6573-28-78 07:33:51 Test Item Value Reference Range Interpretation [...] examination* Multilevel diffuse degenerative changes are present. [facility]oEwcqqvfANKUZK0556-29-63 07:33:51 Test Item Value Reference Range Interpretation [...] examination* Multilevel diffuse degenerative changes are present. [facility]oArqxgxyMFUDJH9009-01-28 07:33:51 Test Item Value Reference Range Interpretation [...] examination* Multilevel diffuse degenerative changes are present. [facility]oCnfgqtdJWXVZR2100-85-87 07:33:51 Test Item Value Reference Range Interpretation [...] examination* Multilevel diffuse degenerative changes are present. [facility]oKiojvhdWDTVHX3366-78-78 07:33:51 Test Item Value Reference Range Interpretation [...] examination* Multilevel diffuse degenerative changes are present. [facility]oMbhlkyyKMEMEK2898-53-17 07:33:51 Test Item Value Reference Range Interpretation [...] examination* Multilevel diffuse degenerative changes are present. [facility] ParkwayDtxyjfeSILTLP7778-27-65 07:33:51 Test Item Value Reference Range Interpretation [...] examination* Multilevel diffuse degenerative changes are present. [facility] ParkwayMqgkhokYFCXBA0169-83-99 07:33:51 Test Item Value Reference Range Interpretation [...] examination* Multilevel diffuse degenerative changes are present. [facility] ParkwayJbxdznlNLFZHS3063-92-13 07:33:51 Test Item Value Reference Range Interpretation [...] examination* Multilevel diffuse degenerative changes are present. [facility]oQcjxfiuLNOYLY2733-27-00 07:33:51 Test Item Value Reference Range Interpretation [...] examination* Multilevel diffuse degenerative changes are present. [facility]oAhosozfUZRVUN1122-64-78 07:33:51 Test Item Value Reference Range Interpretation [...] examination* Multilevel diffuse degenerative changes are present. [facility]oYjihpuqMSJCPU2285-86-15 07:33:51 Test Item Value Reference Range Interpretation [...] examination* Multilevel diffuse degenerative changes are present. [facility]oKotoxohIFKVCJ2450-11-59 07:33:51 Test Item Value Reference Range Interpretation [...] examination* Multilevel diffuse degenerative changes are present. [facility]oMuqqtbuXPZWXP6200-13-87 07:33:51 Test Item Value Reference Range Interpretation [...] examination* Multilevel diffuse degenerative changes are present. [facility]oHgdnurxFECFLZ1408-28-62 07:33:51 Test Item Value Reference Range Interpretation [...] examination* Multilevel diffuse degenerative changes are present. [facility]oQwpgmbeRNPBEI2430-69-51 07:33:51 Test Item Value Reference Range Interpretation [...] examination* Multilevel diffuse degenerative changes are present. [facility]oDpodookEUKPDK9781-56-75 07:33:51 Test Item Value Reference Range Interpretation [...] examination* Multilevel diffuse degenerative changes are present. [facility] ParkwayOoazixvDZRYNB2879-50-02 07:33:51 Test Item Value Reference Range Interpretation [...] examination* Multilevel diffuse degenerative changes are present. [facility] ParkwayStwtiqnZFNPGH4809-35-54 07:33:51 Test Item Value Reference Range Interpretation [...] examination* Multilevel diffuse degenerative changes are present. [facility] [facility]YanfeliFIPZNM0808-38-56 07:33:51 Test Item Value Reference Range Interpretation [...] examination* Multilevel diffuse degenerative changes are present. [facility]wayAlwdjteNBAWBU4747-75-26 07:33:51 Test Item Value Reference Range Interpretation [...] examination* Multilevel diffuse degenerative changes are present. [facility]wayFsawpacXWJHQV4740-55-04 07:33:51 Test Item Value Reference Range Interpretation [...] examination* Multilevel diffuse degenerative changes are present. [facility]wayDenvqxcIYPVMN8669-01-08 07:33:51 Test Item Value Reference Range Interpretation [...] examination* Multilevel diffuse degenerative changes are present. [facility]wayXruzhkiTGWGKM0604-85-65 07:33:51 Test Item Value Reference Range Interpretation [...] examination* Multilevel diffuse degenerative changes are present. [facility]wayYfcgdocFZGTLE8002-73-78 07:33:51 Test Item Value Reference Range Interpretation [...] examination* Multilevel diffuse degenerative changes are present. [facility]waySloesctINXCBF7241-83-60 07:33:51 Test Item Value Reference Range Interpretation [...] examination* Multilevel diffuse degenerative changes are present. [facility]wayGagwtbjUNZVAS4561-78-03 07:33:51 Test Item Value Reference Range Interpretation [...] examination* Multilevel diffuse degenerative changes are present. [facility]wayFkpsqjlTLIJEX3340-33-51 07:33:51 Test Item Value Reference Range Interpretation [...] examination* Multilevel diffuse degenerative changes are present. [facility]JhfnrjvEDRKPQ0506-17-22 07:33:51 Test Item Value Reference Range Interpretation [...] examination* Multilevel diffuse degenerative changes are present. [facility]oZjhgilsSUBTFT9822-92-51 07:33:51 Test Item Value Reference Range Interpretation [...] examination* Multilevel diffuse degenerative changes are present. [facility]oNnhheuoJBHVBT7317-91-44 07:33:51 Test Item Value Reference Range Interpretation [...] examination* Multilevel diffuse degenerative changes are present. [facility]oJxtcxjsQRVDGX9257-54-03 07:33:51 Test Item Value Reference Range Interpretation [...] examination* Multilevel diffuse degenerative changes are present. [facility] CenterYslojzmHYTJVS0196-86-04 07:33:51 Test Item Value Reference Range Interpretation [...] examination* Multilevel diffuse degenerative changes are present. [facility] CenterRfbcwthRCYOFD0801-06-37 07:33:51 Test Item Value Reference Range Interpretation [...] examination* Multilevel diffuse degenerative changes are present. [facility] CenterZvuplsxBIQRFU7958-32-45 07:33:51 Test Item Value Reference Range Interpretation [...] examination* Multilevel diffuse degenerative changes are present. [facility]oKdktsrbJNNICS7400-02-22 07:33:51 Test Item Value Reference Range Interpretation [...] examination* Multilevel diffuse degenerative changes are present. [facility]wayVibykwwUXCULV6730-65-48 07:33:51 Test Item Value Reference Range Interpretation [...] examination* Multilevel diffuse degenerative changes are present. [facility]wayBsjauzjPCVHUH9046-71-10 07:33:51 Test Item Value Reference Range Interpretation [...] examination* Multilevel diffuse degenerative changes are present. [facility]oCscqijzPPZHXP7992-50-63 07:33:51 Test Item Value Reference Range Interpretation [...] examination* Multilevel diffuse degenerative changes are present. [facility]wayTunclwwRDTPWM8401-57-53 07:33:51 Test Item Value Reference Range Interpretation [...] examination* Multilevel diffuse degenerative changes are present. [facility]wayJlyusrrDQCRDU3903-24-69 07:33:51 Test Item Value Reference Range Interpretation [...] examination* Multilevel diffuse degenerative changes are present. [facility]wayRwjeuxqBTUIDR2382-06-48 07:33:51 Test Item Value Reference Range Interpretation [...] examination* Multilevel diffuse degenerative changes are present. [facility]wayTutuvjeAHJPUQ1499-11-67 07:33:51 Test Item Value Reference Range Interpretation [...] examination* Multilevel diffuse degenerative changes are present. [facility]oFognqhqHNWHNO6832-85-62 07:33:51 Test Item Value Reference Range Interpretation [...] examination* Multilevel diffuse degenerative changes are present. [facility]wayFmikjsuAJQYNP3035-45-16 07:33:51 Test Item Value Reference Range Interpretation [...] examination* Multilevel diffuse degenerative changes are present. [facility]oGhjckheJSCPAR7203-82-33 07:33:51 Test Item Value Reference Range Interpretation [...] examination* Multilevel diffuse degenerative changes are present. [facility]oBxeyoecOJNJCP9663-01-39 07:33:51 Test Item Value Reference Range Interpretation [...] examination* Multilevel diffuse degenerative changes are present. [facility]wayJthoapkOUFRBZ9279-53-81 07:33:51 Test Item Value Reference Range Interpretation [...] examination* Multilevel diffuse degenerative changes are present. [facility]wayBzqooywUJFZNF0663-62-28 07:33:51 Test Item Value Reference Range Interpretation [...] examination* Multilevel diffuse degenerative changes are present. [facility]wayVtkeywgWMZEMC2527-97-33 07:33:51 Test Item Value Reference Range Interpretation [...] examination* Multilevel diffuse degenerative changes are present. [facility]wayDwhlvhqHIKHOY8733-48-12 07:33:51 Test Item Value Reference Range Interpretation [...] examination* Multilevel diffuse degenerative changes are present. [facility]oWjqxypbXNPJAN4702-83-15 07:33:51 Test Item Value Reference Range Interpretation [...] examination* Multilevel diffuse degenerative changes are present. [facility]oFmzywclVBADSC9973-05-42 07:33:51 Test Item Value Reference Range Interpretation [...] examination* Multilevel diffuse degenerative changes are present. [facility] CenterJmwruymLPLAXO9790-06-16 07:33:51 Test Item Value Reference Range Interpretation [...] examination* Multilevel diffuse degenerative changes are present. [facility]oGlxvnbzMMSHZX4433-77-67 07:33:51 Test Item Value Reference Range Interpretation [...] examination* Multilevel diffuse degenerative changes are present. [facility]oOwlgspaIADNXL7219-45-14 07:33:51 Test Item Value Reference Range Interpretation [...] examination* Multilevel diffuse degenerative changes are present. [facility]oGnlrqyyENASBN6141-51-37 07:33:51 Test Item Value Reference Range Interpretation [...] examination* Multilevel diffuse degenerative changes are present. [facility]oFguywfjBWLFLQ0271-80-44 07:33:51 Test Item Value Reference Range Interpretation [...] examination* Multilevel diffuse degenerative changes are present. [facility]oLgqswigLPNRWO8448-44-16 07:33:51 Test Item Value Reference Range Interpretation [...] examination* Multilevel diffuse degenerative changes are present. [facility]wayAjurxdnIKVGOE8923-41-72 07:33:51 Test Item Value Reference Range Interpretation [...] examination* Multilevel diffuse degenerative changes are present. [facility]wayYwhdmfyAHSRHG9755-52-11 07:33:51 Test Item Value Reference Range Interpretation [...] examination* Multilevel diffuse degenerative changes are present. [facility]wayOlenccpFMQBOG5477-81-93 07:33:51 Test Item Value Reference Range Interpretation [...] examination* Multilevel diffuse degenerative changes are present. [facility]wayZuhngiqFVKJIC3684-59-67 07:33:51 Test Item Value Reference Range Interpretation [...] examination* Multilevel diffuse degenerative changes are present. [facility]wayQkrwdvwZROASD7669-21-68 07:33:51 Test Item Value Reference Range Interpretation [...] examination* Multilevel diffuse degenerative changes are present. [facility]wayBygtpptPLUGCB0579-76-47 07:33:51 Test Item Value Reference Range Interpretation [...] examination* Multilevel diffuse degenerative changes are present. [facility]wayObvxkmeDFSSCS3980-56-54 07:33:51 Test Item Value Reference Range Interpretation [...] examination* Multilevel diffuse degenerative changes are present. [facility]oJplabrsCUKDGD8357-24-34 07:33:51 Test Item Value Reference Range Interpretation [...] examination* Multilevel diffuse degenerative changes are present. [facility]aredoLkbcklsQNRUXF5103-38-03 07:33:51 Test Item Value Reference Range Interpretation [...] examination* Multilevel diffuse degenerative changes are present. [facility]oBwkzpikVBCJWA1081-81-73 07:33:51 Test Item Value Reference Range Interpretation [...] examination* Multilevel diffuse degenerative changes are present. [facility]oUykvslxWVHYXH7863-96-11 19:34:11 Test Item Value Reference Range Interpretation [...] this portable radiograph. Osseous structures are unchanged. [facility]wayShxvkycYQGRMS6306-32-30 19:34:11 Test Item Value Reference Range Interpretation [...] this portable radiograph. Osseous structures are unchanged. [facility]wayFdtnpjpGUAUBT4994-47-51 19:34:11 Test Item Value Reference Range Interpretation [...] this portable radiograph. Osseous structures are unchanged. [facility]wayDlhfvyyYHWSHE7507-15-10 19:34:11 Test Item Value Reference Range Interpretation [...] this portable radiograph. Osseous structures are unchanged. [facility]wayEnqdpycNEOUWJ5440-75-18 19:34:11 Test Item Value Reference Range Interpretation [...] this portable radiograph. Osseous structures are unchanged. [facility]wayJqqqopgVTQCJO4229-33-17 19:34:11 Test Item Value Reference Range Interpretation [...] this portable radiograph. Osseous structures are unchanged. [facility]wayEjenycuHCAAMN4721-08-51 19:34:11 Test Item Value Reference Range Interpretation [...] this portable radiograph. Osseous structures are unchanged. [facility]wayNlocowjAIVPQM3992-69-77 19:34:11 Test Item Value Reference Range Interpretation [...] this portable radiograph. Osseous structures are unchanged. [facility]wayZonfsfsJOKTOB4797-68-68 19:34:11 Test Item Value Reference Range Interpretation [...] this portable radiograph. Osseous structures are unchanged. [facility]wayPyiorjsRAUSMS9904-50-72 19:34:11 Test Item Value Reference Range Interpretation [...] this portable radiograph. Osseous structures are unchanged. [place] [id number] 19:34:11 Test Item Value Reference Range Interpretation [...] this portable radiograph. Osseous structures are unchanged. [place] [id number] 19:34:11 Test Item Value Reference Range Interpretation [...] this portable radiograph. Osseous structures are unchanged. [place] [id number] 19:34:11 Test Item Value Reference Range Interpretation [...] this portable radiograph. Osseous structures are unchanged. [place] [id number] 19:34:11 Test Item Value Reference Range Interpretation [...] this portable radiograph. Osseous structures are unchanged. [place] [id number] 19:34:11 Test Item Value Reference Range Interpretation [...] this portable radiograph. Osseous structures are unchanged. [facility]wayMnjlldvXUMNPL0715-20-97 19:34:11 Test Item Value Reference Range Interpretation [...] this portable radiograph. Osseous structures are unchanged. [facility]wayPpssqqhAULRKB7154-59-37 19:34:11 Test Item Value Reference Range Interpretation [...] this portable radiograph. Osseous structures are unchanged. [facility]wayDxuyennZTLHSH9703-92-27 19:34:11 Test Item Value Reference Range Interpretation [...] this portable radiograph. Osseous structures are unchanged. [facility]wayCcatsrbETDAQH3985-30-50 19:34:11 Test Item Value Reference Range Interpretation [...] this portable radiograph. Osseous structures are unchanged. [facility]wayYelufswPTQGYT9431-59-67 19:34:11 Test Item Value Reference Range Interpretation [...] this portable radiograph. Osseous structures are unchanged. [facility]wayTshiqipPDITWY3407-67-94 19:34:11 Test Item Value Reference Range Interpretation [...] this portable radiograph. Osseous structures are unchanged. [place] [id number] 19:34:11 Test Item Value Reference Range Interpretation [...] this portable radiograph. Osseous structures are unchanged. [place] [id number] 19:34:11 Test Item Value Reference Range Interpretation [...] this portable radiograph. Osseous structures are unchanged. [place] [id number] 19:34:11 Test Item Value Reference Range Interpretation [...] this portable radiograph. Osseous structures are unchanged. [facility]wayVvjiyzdGZIVYW0749-04-00 19:34:11 Test Item Value Reference Range Interpretation [...] this portable radiograph. Osseous structures are unchanged. [place] [id number] 19:34:11 Test Item Value Reference Range Interpretation [...] this portable radiograph. Osseous structures are unchanged. [facility]wayUwflcceHIMTQF0989-94-32 19:34:11 Test Item Value Reference Range Interpretation [...] this portable radiograph. Osseous structures are unchanged. [facility]wayXoyranfCQWOVC9739-45-43 19:34:11 Test Item Value Reference Range Interpretation [...] this portable radiograph. Osseous structures are unchanged. [facility]wayQaxvhutYOLUCP8069-17-66 19:34:11 Test Item Value Reference Range Interpretation [...] this portable radiograph. Osseous structures are unchanged. [facility]wayCjlhjpyAKYKWU4435-94-62 19:34:11 Test Item Value Reference Range Interpretation [...] this portable radiograph. Osseous structures are unchanged. [place] [id number] 19:34:11 Test Item Value Reference Range Interpretation [...] this portable radiograph. Osseous structures are unchanged. [place] [id number] 19:34:11 Test Item Value Reference Range Interpretation [...] this portable radiograph. Osseous structures are unchanged. [place] [id number] 19:34:11 Test Item Value Reference Range Interpretation [...] this portable radiograph. Osseous structures are unchanged. [place] [id number] 19:34:11 Test Item Value Reference Range Interpretation [...] this portable radiograph. Osseous structures are unchanged. [place] [id number] 19:34:11 Test Item Value Reference Range Interpretation [...] this portable radiograph. Osseous structures are unchanged. [place] [id number] 19:34:11 Test Item Value Reference Range Interpretation [...] this portable radiograph. Osseous structures are unchanged. [place] [id number] 19:34:11 Test Item Value Reference Range Interpretation [...] this portable radiograph. Osseous structures are unchanged. [facility]wayPozqsjfZRQSDU6844-49-31 19:34:11 Test Item Value Reference Range Interpretation [...] this portable radiograph. Osseous structures are unchanged. [facility]wayHgelmrxLMEVLD0297-67-27 19:34:11 Test Item Value Reference Range Interpretation [...] this portable radiograph. Osseous structures are unchanged. [facility]wayGhpklpuZLJKXR3766-22-58 19:34:11 Test Item Value Reference Range Interpretation [...] this portable radiograph. Osseous structures are unchanged. [facility]wayVwjgmefJISOPF9468-34-24 19:34:11 Test Item Value Reference Range Interpretation [...] this portable radiograph. Osseous structures are unchanged. [facility]waySydanjmRXFYFP5015-67-32 19:34:11 Test Item Value Reference Range Interpretation [...] this portable radiograph. Osseous structures are unchanged. [facility]wayPdmkfysQBREMP2522-68-77 19:34:11 Test Item Value Reference Range Interpretation [...] this portable radiograph. Osseous structures are unchanged. [place] [id number] 19:34:11 Test Item Value Reference Range Interpretation [...] this portable radiograph. Osseous structures are unchanged. [place] [id number] 19:34:11 Test Item Value Reference Range Interpretation [...] this portable radiograph. Osseous structures are unchanged. [place] [id number] 19:34:11 Test Item Value Reference Range Interpretation [...] this portable radiograph. Osseous structures are unchanged. [facility]wayKahmogjHRIXLS0702-01-06 19:34:11 Test Item Value Reference Range Interpretation [...] this portable radiograph. Osseous structures are unchanged. [place] [id number] 19:34:11 Test Item Value Reference Range Interpretation [...] this portable radiograph. Osseous structures are unchanged. [place] [id number] 19:34:11 Test Item Value Reference Range Interpretation [...] this portable radiograph. Osseous structures are unchanged. [place] [id number] 19:34:11 Test Item Value Reference Range Interpretation [...] this portable radiograph. Osseous structures are unchanged. [facility]wayRwhilpcSAFBPN3729-22-45 19:34:11 Test Item Value Reference Range Interpretation [...] this portable radiograph. Osseous structures are unchanged. [facility]wayTewfqdkMGUHOD9977-44-63 19:34:11 Test Item Value Reference Range Interpretation [...] this portable radiograph. Osseous structures are unchanged. [facility]wayNyjfoqcCLXPWB4920-11-07 19:34:11 Test Item Value Reference Range Interpretation [...] this portable radiograph. Osseous structures are unchanged. [facility]wayWmgmrgjJHVJMW4996-88-11 19:34:11 Test Item Value Reference Range Interpretation [...] this portable radiograph. Osseous structures are unchanged. [facility]wayHtnjkxkHPUUUV2216-02-84 19:34:11 Test Item Value Reference Range Interpretation [...] this portable radiograph. Osseous structures are unchanged. [facility]wayMuhdvogJKWGXP9518-82-31 19:34:11 Test Item Value Reference Range Interpretation [...] this portable radiograph. Osseous structures are unchanged. [facility]wayYnsfaydQIUSIQ9137-10-51 19:34:11 Test Item Value Reference Range Interpretation [...] this portable radiograph. Osseous structures are unchanged. [facility]wayGaxnifcEQUWYN1677-05-50 19:34:11 Test Item Value Reference Range Interpretation [...] this portable radiograph. Osseous structures are unchanged. [facility]wayTpnznpoDVOVDZ1371-32-29 19:34:11 Test Item Value Reference Range Interpretation [...] this portable radiograph. Osseous structures are unchanged. [facility]wayJekwddpZJOXNF9544-72-36 19:34:11 Test Item Value Reference Range Interpretation [...] this portable radiograph. Osseous structures are unchanged. [place] [id number] 19:34:11 Test Item Value Reference Range Interpretation [...] this portable radiograph. Osseous structures are unchanged. [place] [id number] 19:34:11 Test Item Value Reference Range Interpretation [...] this portable radiograph. Osseous structures are unchanged. [facility]wayJklyjwbQLPVGY8149-64-29 19:34:11 Test Item Value Reference Range Interpretation [...] this portable radiograph. Osseous structures are unchanged. [facility]wayYlsganbEQKQDT2669-20-34 19:34:11 Test Item Value Reference Range Interpretation [...] this portable radiograph. Osseous structures are unchanged. [facility]wayRvmdjwnZICFXJ0368-97-33 19:34:11 Test Item Value Reference Range Interpretation [...] this portable radiograph. Osseous structures are unchanged. [facility]wayLnvqoizBKQNDH9979-25-02 19:34:11 Test Item Value Reference Range Interpretation [...] this portable radiograph. Osseous structures are unchanged. [facility]wayDvcrxzbKGNDLG5985-03-36 19:34:11 Test Item Value Reference Range Interpretation [...] this portable radiograph. Osseous structures are unchanged. [place] [id number] 19:34:11 Test Item Value Reference Range Interpretation [...] this portable radiograph. Osseous structures are unchanged. [facility]wayQyonhgzWSEUML6991-97-64 19:34:11 Test Item Value Reference Range Interpretation [...] this portable radiograph. Osseous structures are unchanged. [facility]wayIcgdafeDNFCCA6979-59-56 19:34:11 Test Item Value Reference Range Interpretation [...] this portable radiograph. Osseous structures are unchanged. [place] [id number] 19:34:11 Test Item Value Reference Range Interpretation [...] this portable radiograph. Osseous structures are unchanged. [place] [id number] 19:34:11 Test Item Value Reference Range Interpretation [...] this portable radiograph. Osseous structures are unchanged. [place] [id number] 19:34:11 Test Item Value Reference Range Interpretation [...] this portable radiograph. Osseous structures are unchanged. [facility]wayVphmeliBYJIVP4194-99-24 19:34:11 Test Item Value Reference Range Interpretation [...] this portable radiograph. Osseous structures are unchanged. [facility]wayMwsdqqwQOKEEZ8852-41-63 19:34:11 Test Item Value Reference Range Interpretation [...] this portable radiograph. Osseous structures are unchanged. [facility]wayMpggjyeXFQYWG5968-08-99 19:34:11 Test Item Value Reference Range Interpretation [...] this portable radiograph. Osseous structures are unchanged. [facility]wayQbohnoxEOUWMC2931-78-64 19:34:11 Test Item Value Reference Range Interpretation [...] this portable radiograph. Osseous structures are unchanged. [facility]wayKihkqzjQGACSV0036-10-72 19:34:11 Test Item Value Reference Range Interpretation [...] this portable radiograph. Osseous structures are unchanged. [facility]wayWsqdadyVNQNYV4684-14-39 19:34:11 Test Item Value Reference Range Interpretation [...] this portable radiograph. Osseous structures are unchanged. [place] [id number] 19:34:11 Test Item Value Reference Range Interpretation [...] this portable radiograph. Osseous structures are unchanged. [place] [id number] 19:34:11 Test Item Value Reference Range Interpretation [...] this portable radiograph. Osseous structures are unchanged. [place] [id number] 19:34:11 Test Item Value Reference Range Interpretation [...] this portable radiograph. Osseous structures are unchanged. [facility]wayIhnqcgsMYDMWO3202-13-75 19:34:11 Test Item Value Reference Range Interpretation [...] this portable radiograph. Osseous structures are unchanged. [place] [id number] 19:34:11 Test Item Value Reference Range Interpretation [...] this portable radiograph. Osseous structures are unchanged. [place] [id number] 19:34:11 Test Item Value Reference Range Interpretation [...] this portable radiograph. Osseous structures are unchanged. [place] [id number] 19:34:11 Test Item Value Reference Range Interpretation [...] this portable radiograph. Osseous structures are unchanged. [facility]wayTutaikfJAREPH7443-86-09 19:34:11 Test Item Value Reference Range Interpretation [...] this portable radiograph. Osseous structures are unchanged. [facility]wayQzlgqlpPZUWVO4673-04-01 19:34:11 Test Item Value Reference Range Interpretation [...] this portable radiograph. Osseous structures are unchanged. [facility] ParkwayYqsnccySFBJEM6999-70-61 19:34:11 Test Item Value Reference Range Interpretation [...] this portable radiograph. Osseous structures are unchanged. [facility] ParkwayEqufwtuBNLEDK9425-55-01 19:34:11 Test Item Value Reference Range Interpretation [...] this portable radiograph. Osseous structures are unchanged. [facility] ParkwayRjrwflnZWQFCI8537-48-30 19:34:11 Test Item Value Reference Range Interpretation [...] this portable radiograph. Osseous structures are unchanged. [facility] ParkwayWozystfUBFMDP4932-74-30 19:34:11 Test Item Value Reference Range Interpretation [...] this portable radiograph. Osseous structures are unchanged. [place] [id number] 19:34:11 Test Item Value Reference Range Interpretation [...] this portable radiograph. Osseous structures are unchanged. [facility]NinpifvQCIJIBCFKT4411-66-41 05:23:00 Test Item Value Reference Range Interpretation Comments C-REACTIVE PROTEIN (test code = 22.5 C-REACTIVE PROTEIN) [facility] CenterJjfqfpwCYRNSTAXCD1080-72-37 05:23:00 Test Item Value Reference Range Interpretation Comments C-REACTIVE PROTEIN (test code = 22.5 C-REACTIVE PROTEIN) [place] [id number] 05:23:00 Test Item Value Reference Range Interpretation Comments C-REACTIVE PROTEIN (test code = 22.5 C-REACTIVE PROTEIN) [facility] CenterXgtvdseCPSNWWFXCS5514-96-62 05:23:00 Test Item Value Reference Range Interpretation Comments C-REACTIVE PROTEIN (test code = 22.5 C-REACTIVE PROTEIN) [facility] CenterNvpdaofQHCLLFZKKX2003-29-10 05:23:00 Test Item Value Reference Range Interpretation Comments C-REACTIVE PROTEIN (test code = 22.5 C-REACTIVE PROTEIN) [place] [id number] 05:23:00 Test Item Value Reference Range Interpretation Comments C-REACTIVE PROTEIN (test code = 22.5 C-REACTIVE PROTEIN) [facility] CenterFnjyxkkBNPDZFRDHU4323-17-41 05:23:00 Test Item Value Reference Range Interpretation Comments C-REACTIVE PROTEIN (test code = 22.5 C-REACTIVE PROTEIN) [place] [address]-10-27 05:23:00 Test Item Value Reference Range Interpretation Comments C-REACTIVE PROTEIN (test code = 22.5 C-REACTIVE PROTEIN) [address]10-27 05:23:00 Test Item Value Reference Range Interpretation Comments C-REACTIVE PROTEIN (test code = 22.5 C-REACTIVE PROTEIN) [place] [address]-10-27 05:23:00 Test Item Value Reference Range Interpretation Comments C-REACTIVE PROTEIN (test code = 22.5 C-REACTIVE PROTEIN) [address]10-27 05:23:00 Test Item Value Reference Range Interpretation Comments C-REACTIVE PROTEIN (test code = 22.5 C-REACTIVE PROTEIN) [address]10-27 05:23:00 Test Item Value Reference Range Interpretation Comments C-REACTIVE PROTEIN (test code = 22.5 C-REACTIVE PROTEIN) [address]10-27 05:23:00 Test Item Value Reference Range Interpretation Comments C-REACTIVE PROTEIN (test code = 22.5 C-REACTIVE PROTEIN) [address]10-27 05:23:00 Test Item Value Reference Range Interpretation Comments C-REACTIVE PROTEIN (test code = 22.5 C-REACTIVE PROTEIN) [address]10-27 05:23:00 Test Item Value Reference Range Interpretation Comments C-REACTIVE PROTEIN (test code = 22.5 C-REACTIVE PROTEIN) [address]10-27 05:23:00 Test Item Value Reference Range Interpretation Comments C-REACTIVE PROTEIN (test code = 22.5 C-REACTIVE PROTEIN) [address]10-27 05:23:00 Test Item Value Reference Range Interpretation Comments C-REACTIVE PROTEIN (test code = 22.5 C-REACTIVE PROTEIN) [address]10-27 05:23:00 Test Item Value Reference Range Interpretation Comments C-REACTIVE PROTEIN (test code = 22.5 C-REACTIVE PROTEIN) [address]10-27 05:23:00 Test Item Value Reference Range Interpretation Comments C-REACTIVE PROTEIN (test code = 22.5 C-REACTIVE PROTEIN) [address]10-27 05:23:00 Test Item Value Reference Range Interpretation Comments C-REACTIVE PROTEIN (test code = 22.5 C-REACTIVE PROTEIN) [address]10-27 05:23:00 Test Item Value Reference Range Interpretation Comments C-REACTIVE PROTEIN (test code = 22.5 C-REACTIVE PROTEIN) [place] [address]-10-27 05:23:00 Test Item Value Reference Range Interpretation Comments C-REACTIVE PROTEIN (test code = 22.5 C-REACTIVE PROTEIN) [place] [address]-10-27 05:23:00 Test Item Value Reference Range Interpretation Comments C-REACTIVE PROTEIN (test code = 22.5 C-REACTIVE PROTEIN) [address]10-27 05:23:00 Test Item Value Reference Range Interpretation Comments C-REACTIVE PROTEIN (test code = 22.5 C-REACTIVE PROTEIN) [address]10-27 05:23:00 Test Item Value Reference Range Interpretation Comments C-REACTIVE PROTEIN (test code = 22.5 C-REACTIVE PROTEIN) [address]10-27 05:23:00 Test Item Value Reference Range Interpretation Comments C-REACTIVE PROTEIN (test code = 22.5 C-REACTIVE PROTEIN) [address]10-27 05:23:00 Test Item Value Reference Range Interpretation Comments C-REACTIVE PROTEIN (test code = 22.5 C-REACTIVE PROTEIN) [address]10-27 05:23:00 Test Item Value Reference Range Interpretation Comments C-REACTIVE PROTEIN (test code = 22.5 C-REACTIVE PROTEIN) [address]10-27 05:23:00 Test Item Value Reference Range Interpretation Comments C-REACTIVE PROTEIN (test code = 22.5 C-REACTIVE PROTEIN) [address]10-27 05:23:00 Test Item Value Reference Range Interpretation Comments C-REACTIVE PROTEIN (test code = 22.5 C-REACTIVE PROTEIN) [address]10-27 05:23:00 Test Item Value Reference Range Interpretation Comments C-REACTIVE PROTEIN (test code = 22.5 C-REACTIVE PROTEIN) [address]10-27 05:23:00 Test Item Value Reference Range Interpretation Comments C-REACTIVE PROTEIN (test code = 22.5 C-REACTIVE PROTEIN) [address]10-27 05:23:00 Test Item Value Reference Range Interpretation Comments C-REACTIVE PROTEIN (test code = 22.5 C-REACTIVE PROTEIN) [address]10-27 05:23:00 Test Item Value Reference Range Interpretation Comments C-REACTIVE PROTEIN (test code = 22.5 C-REACTIVE PROTEIN) [place] [address]-10-27 05:23:00 Test Item Value Reference Range Interpretation Comments C-REACTIVE PROTEIN (test code = 22.5 C-REACTIVE PROTEIN) [place] [address]-10-27 05:23:00 Test Item Value Reference Range Interpretation Comments C-REACTIVE PROTEIN (test code = 22.5 C-REACTIVE PROTEIN) [place] [address]-10-27 05:23:00 Test Item Value Reference Range Interpretation Comments C-REACTIVE PROTEIN (test code = 22.5 C-REACTIVE PROTEIN) [address]10-27 05:23:00 Test Item Value Reference Range Interpretation Comments C-REACTIVE PROTEIN (test code = 22.5 C-REACTIVE PROTEIN) [place] [address]-10-27 05:23:00 Test Item Value Reference Range Interpretation Comments C-REACTIVE PROTEIN (test code = 22.5 C-REACTIVE PROTEIN) [place] [address]-10-27 05:23:00 Test Item Value Reference Range Interpretation Comments C-REACTIVE PROTEIN (test code = 22.5 C-REACTIVE PROTEIN) [place] [address]-10-27 05:23:00 Test Item Value Reference Range Interpretation Comments C-REACTIVE PROTEIN (test code = 22.5 C-REACTIVE PROTEIN) [place] [address]-10-27 05:23:00 Test Item Value Reference Range Interpretation Comments C-REACTIVE PROTEIN (test code = 22.5 C-REACTIVE PROTEIN) [place] [address]-10-27 05:23:00 Test Item Value Reference Range Interpretation Comments C-REACTIVE PROTEIN (test code = 22.5 C-REACTIVE PROTEIN) [place] [address]-10-27 05:23:00 Test Item Value Reference Range Interpretation Comments C-REACTIVE PROTEIN (test code = 22.5 C-REACTIVE PROTEIN) [place] [address]-10-27 05:23:00 Test Item Value Reference Range Interpretation Comments C-REACTIVE PROTEIN (test code = 22.5 C-REACTIVE PROTEIN) [place] [address]-10-27 05:23:00 Test Item Value Reference Range Interpretation Comments C-REACTIVE PROTEIN (test code = 22.5 C-REACTIVE PROTEIN) [place] [address]-10-27 05:23:00 Test Item Value Reference Range Interpretation Comments C-REACTIVE PROTEIN (test code = 22.5 C-REACTIVE PROTEIN) [place] [address]-10-27 05:23:00 Test Item Value Reference Range Interpretation Comments C-REACTIVE PROTEIN (test code = 22.5 C-REACTIVE PROTEIN) [place] [address]-10-27 05:23:00 Test Item Value Reference Range Interpretation Comments C-REACTIVE PROTEIN (test code = 22.5 C-REACTIVE PROTEIN) [place] [address]-10-27 05:23:00 Test Item Value Reference Range Interpretation Comments C-REACTIVE PROTEIN (test code = 22.5 C-REACTIVE PROTEIN) [place] [address]-10-27 05:23:00 Test Item Value Reference Range Interpretation Comments C-REACTIVE PROTEIN (test code = 22.5 C-REACTIVE PROTEIN) [place] [address]-10-27 05:23:00 Test Item Value Reference Range Interpretation Comments C-REACTIVE PROTEIN (test code = 22.5 C-REACTIVE PROTEIN) [place] [address]-10-27 05:23:00 Test Item Value Reference Range Interpretation Comments C-REACTIVE PROTEIN (test code = 22.5 C-REACTIVE PROTEIN) [place] [address]-10-27 05:23:00 Test Item Value Reference Range Interpretation Comments C-REACTIVE PROTEIN (test code = 22.5 C-REACTIVE PROTEIN) [place] [address]-10-27 05:23:00 Test Item Value Reference Range Interpretation Comments C-REACTIVE PROTEIN (test code = 22.5 C-REACTIVE PROTEIN) [place] [address]-10-27 05:23:00 Test Item Value Reference Range Interpretation Comments C-REACTIVE PROTEIN (test code = 22.5 C-REACTIVE PROTEIN) [address]10-27 05:23:00 Test Item Value Reference Range Interpretation Comments C-REACTIVE PROTEIN (test code = 22.5 C-REACTIVE PROTEIN) [place] [address]-10-27 05:23:00 Test Item Value Reference Range Interpretation Comments C-REACTIVE PROTEIN (test code = 22.5 C-REACTIVE PROTEIN) [place] [address]-10-27 05:23:00 Test Item Value Reference Range Interpretation Comments C-REACTIVE PROTEIN (test code = 22.5 C-REACTIVE PROTEIN) [place] [address]-10-27 05:23:00 Test Item Value Reference Range Interpretation Comments C-REACTIVE PROTEIN (test code = 22.5 C-REACTIVE PROTEIN) [place] [address]-10-27 05:23:00 Test Item Value Reference Range Interpretation Comments C-REACTIVE PROTEIN (test code = 22.5 C-REACTIVE PROTEIN) [place] [address]-10-27 05:23:00 Test Item Value Reference Range Interpretation Comments C-REACTIVE PROTEIN (test code = 22.5 C-REACTIVE PROTEIN) [place] [address]-10-27 05:23:00 Test Item Value Reference Range Interpretation Comments C-REACTIVE PROTEIN (test code = 22.5 C-REACTIVE PROTEIN) [place] [address]-10-27 05:23:00 Test Item Value Reference Range Interpretation Comments C-REACTIVE PROTEIN (test code = 22.5 C-REACTIVE PROTEIN) [address]10-27 05:23:00 Test Item Value Reference Range Interpretation Comments C-REACTIVE PROTEIN (test code = 22.5 C-REACTIVE PROTEIN) [place] [address]-10-27 05:23:00 Test Item Value Reference Range Interpretation Comments C-REACTIVE PROTEIN (test code = 22.5 C-REACTIVE PROTEIN) [address]10-27 05:23:00 Test Item Value Reference Range Interpretation Comments C-REACTIVE PROTEIN (test code = 22.5 C-REACTIVE PROTEIN) [address]10-27 05:23:00 Test Item Value Reference Range Interpretation Comments C-REACTIVE PROTEIN (test code = 22.5 C-REACTIVE PROTEIN) [place] [address]-10-27 05:23:00 Test Item Value Reference Range Interpretation Comments C-REACTIVE PROTEIN (test code = 22.5 C-REACTIVE PROTEIN) [address]10-27 05:23:00 Test Item Value Reference Range Interpretation Comments C-REACTIVE PROTEIN (test code = 22.5 C-REACTIVE PROTEIN) [place] [address]-10-27 05:23:00 Test Item Value Reference Range Interpretation Comments C-REACTIVE PROTEIN (test code = 22.5 C-REACTIVE PROTEIN) [place] [address]-10-27 05:23:00 Test Item Value Reference Range Interpretation Comments C-REACTIVE PROTEIN (test code = 22.5 C-REACTIVE PROTEIN) [place] [address]-10-27 05:23:00 Test Item Value Reference Range Interpretation Comments C-REACTIVE PROTEIN (test code = 22.5 C-REACTIVE PROTEIN) [place] [address]-10-27 05:23:00 Test Item Value Reference Range Interpretation Comments C-REACTIVE PROTEIN (test code = 22.5 C-REACTIVE PROTEIN) [place] [address]-10-27 05:23:00 Test Item Value Reference Range Interpretation Comments C-REACTIVE PROTEIN (test code = 22.5 C-REACTIVE PROTEIN) [address]10-27 05:23:00 Test Item Value Reference Range Interpretation Comments C-REACTIVE PROTEIN (test code = 22.5 C-REACTIVE PROTEIN) [place] [address]-10-27 05:23:00 Test Item Value Reference Range Interpretation Comments C-REACTIVE PROTEIN (test code = 22.5 C-REACTIVE PROTEIN) [address]10-27 05:23:00 Test Item Value Reference Range Interpretation Comments C-REACTIVE PROTEIN (test code = 22.5 C-REACTIVE PROTEIN) [place] [address]-10-27 05:23:00 Test Item Value Reference Range Interpretation Comments C-REACTIVE PROTEIN (test code = 22.5 C-REACTIVE PROTEIN) [address]10-27 05:23:00 Test Item Value Reference Range Interpretation Comments C-REACTIVE PROTEIN (test code = 22.5 C-REACTIVE PROTEIN) [address]10-27 05:23:00 Test Item Value Reference Range Interpretation Comments C-REACTIVE PROTEIN (test code = 22.5 C-REACTIVE PROTEIN) [place] [address]-10-27 05:23:00 Test Item Value Reference Range Interpretation Comments C-REACTIVE PROTEIN (test code = 22.5 C-REACTIVE PROTEIN) [place] [address]-10-27 05:23:00 Test Item Value Reference Range Interpretation Comments C-REACTIVE PROTEIN (test code = 22.5 C-REACTIVE PROTEIN) [place] [address]-10-27 05:23:00 Test Item Value Reference Range Interpretation Comments C-REACTIVE PROTEIN (test code = 22.5 C-REACTIVE PROTEIN) [place] [address]-10-27 05:23:00 Test Item Value Reference Range Interpretation Comments C-REACTIVE PROTEIN (test code = 22.5 C-REACTIVE PROTEIN) [address]10-27 05:23:00 Test Item Value Reference Range Interpretation Comments C-REACTIVE PROTEIN (test code = 22.5 C-REACTIVE PROTEIN) [place] [address]-10-27 05:23:00 Test Item Value Reference Range Interpretation Comments C-REACTIVE PROTEIN (test code = 22.5 C-REACTIVE PROTEIN) [address]10-27 05:23:00 Test Item Value Reference Range Interpretation Comments C-REACTIVE PROTEIN (test code = 22.5 C-REACTIVE PROTEIN) [address]10-27 05:23:00 Test Item Value Reference Range Interpretation Comments C-REACTIVE PROTEIN (test code = 22.5 C-REACTIVE PROTEIN) [address]10-27 05:23:00 Test Item Value Reference Range Interpretation Comments C-REACTIVE PROTEIN (test code = 22.5 C-REACTIVE PROTEIN) [address]10-27 05:23:00 Test Item Value Reference Range Interpretation Comments C-REACTIVE PROTEIN (test code = 22.5 C-REACTIVE PROTEIN) [address]10-27 05:23:00 Test Item Value Reference Range Interpretation Comments C-REACTIVE PROTEIN (test code = 22.5 C-REACTIVE PROTEIN) [address]10-27 05:23:00 Test Item Value Reference Range Interpretation Comments C-REACTIVE PROTEIN (test code = 22.5 C-REACTIVE PROTEIN) [address]10-26 23:15:00 Test Item Value Reference Range Interpretation Comments Sed Rate (test code = Sed Rate) 90 <=20 [address]10-26 23:15:00 Test Item Value Reference Range Interpretation Comments Sed Rate (test code = 90 See_Comment [Auto mated message] The Sed Rate) system which ge nerated this result transmit delaney reference range : <=20. The reference range was not used to interpr et this result as leilani l/abnormal. [address]10-26 23:15:00 Test Item Value Reference Range Interpretation Comments Sed Rate (test code = 90 See_Comment [Auto mated message] The Sed Rate) system which ge nerated this result transmit delaney reference range : <=20. The reference range was not used to interpr et this result as leilani l/abnormal. [place] [address]-10-26 23:15:00 Test Item Value Reference Range Interpretation Comments Sed Rate (test code = 90 See_Comment [Auto mated message] The Sed Rate) system which ge nerated this result transmit delaney reference range : <=20. The reference range was not used to interpr et this result as leilani l/abnormal. [place] [address]-10-26 23:15:00 Test Item Value Reference Range Interpretation Comments Sed Rate (test code = 90 See_Comment [Auto mated message] The Sed Rate) system which ge nerated this result transmit delaney reference range : <=20. The reference range was not used to interpr et this result as leilani l/abnormal. [place] [address]-10-26 23:15:00 Test Item Value Reference Range Interpretation Comments Sed Rate (test code = 90 See_Comment [Auto mated message] The Sed Rate) system which ge nerated this result transmit delaney reference range : <=20. The reference range was not used to interpr et this result as leilani l/abnormal. [place] [address]-10-26 23:15:00 Test Item Value Reference Range Interpretation Comments Sed Rate (test code = 90 See_Comment [Auto mated message] The Sed Rate) system which ge nerated this result transmit delaney reference range : <=20. The reference range was not used to interpr et this result as leilani l/abnormal. [place] [address]-10-26 23:15:00 Test Item Value Reference Range Interpretation Comments Sed Rate (test code = 90 See_Comment [Auto mated message] The Sed Rate) system which ge nerated this result transmit delaney reference range : <=20. The reference range was not used to interpr et this result as leilani l/abnormal. [place] [address]-10-26 23:15:00 Test Item Value Reference Range Interpretation Comments Sed Rate (test code = 90 See_Comment [Auto mated message] The Sed Rate) system which ge nerated this result transmit delaney reference range : <=20. The reference range was not used to interpr et this result as leilani l/abnormal. [place] [address]-10-26 23:15:00 Test Item Value Reference Range Interpretation Comments Sed Rate (test code = 90 See_Comment [Auto mated message] The Sed Rate) system which ge nerated this result transmit delaney reference range : <=20. The reference range was not used to interpr et this result as leilani l/abnormal. [place] [address]-10-26 23:15:00 Test Item Value Reference Range Interpretation Comments Sed Rate (test code = 90 See_Comment [Auto mated message] The Sed Rate) system which ge nerated this result transmit delaney reference range : <=20. The reference range was not used to interpr et this result as leilani l/abnormal. [address]10-26 23:15:00 Test Item Value Reference Range Interpretation Comments Sed Rate (test code = 90 See_Comment [Auto mated message] The Sed Rate) system which ge nerated this result transmit delaney reference range : <=20. The reference range was not used to interpr et this result as leilani l/abnormal. [address]10-26 23:15:00 Test Item Value Reference Range Interpretation Comments Sed Rate (test code = 90 See_Comment [Auto mated message] The Sed Rate) system which ge nerated this result transmit delaney reference range : <=20. The reference range was not used to interpr et this result as leilani l/abnormal. [address]10-26 23:15:00 Test Item Value Reference Range Interpretation Comments Sed Rate (test code = 90 See_Comment [Auto mated message] The Sed Rate) system which ge nerated this result transmit delaney reference range : <=20. The reference range was not used to interpr et this result as leilani l/abnormal. [place] [address]-26 23:15:00 Test Item Value Reference Range Interpretation Comments Sed Rate (test code = 90 See_Comment [Auto mated message] The Sed Rate) system which ge nerated this result transmit delaney reference range : <=20. The reference range was not used to interpr et this result as leilani l/abnormal. [address]10-26 23:15:00 Test Item Value Reference Range Interpretation Comments Sed Rate (test code = 90 See_Comment [Auto mated message] The Sed Rate) system which ge nerated this result transmit delaney reference range : <=20. The reference range was not used to interpr et this result as leilani l/abnormal. [place] [address]-10-26 23:15:00 Test Item Value Reference Range Interpretation Comments Sed Rate (test code = 90 See_Comment [Auto mated message] The Sed Rate) system which ge nerated this result transmit delaney reference range : <=20. The reference range was not used to interpr et this result as leilani l/abnormal. [place] [address]-10-26 23:15:00 Test Item Value Reference Range Interpretation Comments Sed Rate (test code = 90 See_Comment [Auto mated message] The Sed Rate) system which ge nerated this result transmit delaney reference range : <=20. The reference range was not used to interpr et this result as leilani l/abnormal. [place] [address]-10-26 23:15:00 Test Item Value Reference Range Interpretation Comments Sed Rate (test code = 90 See_Comment [Auto mated message] The Sed Rate) system which ge nerated this result transmit delaney reference range : <=20. The reference range was not used to interpr et this result as leilani l/abnormal. [place] [address]-10-26 23:15:00 Test Item Value Reference Range Interpretation Comments Sed Rate (test code = 90 See_Comment [Auto mated message] The Sed Rate) system which ge nerated this result transmit delaney reference range : <=20. The reference range was not used to interpr et this result as leilani l/abnormal. [place] [address]-10-26 23:15:00 Test Item Value Reference Range Interpretation Comments Sed Rate (test code = 90 See_Comment [Auto mated message] The Sed Rate) system which ge nerated this result transmit delaney reference range : <=20. The reference range was not used to interpr et this result as leilani l/abnormal. [place] [address]-10-26 23:15:00 Test Item Value Reference Range Interpretation Comments Sed Rate (test code = 90 See_Comment [Auto mated message] The Sed Rate) system which ge nerated this result transmit delaney reference range : <=20. The reference range was not used to interpr et this result as leilani l/abnormal. [place] [address]-10-26 23:15:00 Test Item Value Reference Range Interpretation Comments Sed Rate (test code = 90 See_Comment [Auto mated message] The Sed Rate) system which ge nerated this result transmit delaney reference range : <=20. The reference range was not used to interpr et this result as leilani l/abnormal. [address]10-26 23:15:00 Test Item Value Reference Range Interpretation Comments Sed Rate (test code = 90 See_Comment [Auto mated message] The Sed Rate) system which ge nerated this result transmit delaney reference range : <=20. The reference range was not used to interpr et this result as leilani l/abnormal. [address]10-26 23:15:00 Test Item Value Reference Range Interpretation Comments Sed Rate (test code = 90 See_Comment [Auto mated message] The Sed Rate) system which ge nerated this result transmit delaney reference range : <=20. The reference range was not used to interpr et this result as leilani l/abnormal. [place] [address]-26 23:15:00 Test Item Value Reference Range Interpretation Comments Sed Rate (test code = 90 See_Comment [Auto mated message] The Sed Rate) system which ge nerated this result transmit delaney reference range : <=20. The reference range was not used to interpr et this result as leilani l/abnormal. [place] [address]-26 23:15:00 Test Item Value Reference Range Interpretation Comments Sed Rate (test code = 90 See_Comment [Auto mated message] The Sed Rate) system which ge nerated this result transmit delaney reference range : <=20. The reference range was not used to interpr et this result as leilani l/abnormal. [place] [address]-26 23:15:00 Test Item Value Reference Range Interpretation Comments Sed Rate (test code = 90 See_Comment [Auto mated message] The Sed Rate) system which ge nerated this result transmit delaney reference range : <=20. The reference range was not used to interpr et this result as leilani l/abnormal. [place] [address]-26 23:15:00 Test Item Value Reference Range Interpretation Comments Sed Rate (test code = 90 See_Comment [Auto mated message] The Sed Rate) system which ge nerated this result transmit delaney reference range : <=20. The reference range was not used to interpr et this result as leilani l/abnormal. [place] [address]-10-26 23:15:00 Test Item Value Reference Range Interpretation Comments Sed Rate (test code = 90 See_Comment [Auto mated message] The Sed Rate) system which ge nerated this result transmit delaney reference range : <=20. The reference range was not used to interpr et this result as leilani l/abnormal. [place] [address]-10-26 23:15:00 Test Item Value Reference Range Interpretation Comments Sed Rate (test code = 90 See_Comment [Auto mated message] The Sed Rate) system which ge nerated this result transmit delaney reference range : <=20. The reference range was not used to interpr et this result as leilani l/abnormal. [place] [address]-10-26 23:15:00 Test Item Value Reference Range Interpretation Comments Sed Rate (test code = 90 See_Comment [Auto mated message] The Sed Rate) system which ge nerated this result transmit delaney reference range : <=20. The reference range was not used to interpr et this result as leilani l/abnormal. [place] [address]-10-26 23:15:00 Test Item Value Reference Range Interpretation Comments Sed Rate (test code = 90 See_Comment [Auto mated message] The Sed Rate) system which ge nerated this result transmit delaney reference range : <=20. The reference range was not used to interpr et this result as leilani l/abnormal. [place] [address]-10-26 23:15:00 Test Item Value Reference Range Interpretation Comments Sed Rate (test code = 90 See_Comment [Auto mated message] The Sed Rate) system which ge nerated this result transmit delaney reference range : <=20. The reference range was not used to interpr et this result as leilani l/abnormal. [place] [address]-10-26 23:15:00 Test Item Value Reference Range Interpretation Comments Sed Rate (test code = 90 See_Comment [Auto mated message] The Sed Rate) system which ge nerated this result transmit delaney reference range : <=20. The reference range was not used to interpr et this result as leilani l/abnormal. [place] [address]-10-26 23:15:00 Test Item Value Reference Range Interpretation Comments Sed Rate (test code = 90 See_Comment [Auto mated message] The Sed Rate) system which ge nerated this result transmit delaney reference range : <=20. The reference range was not used to interpr et this result as leilani l/abnormal. [address]10-26 23:15:00 Test Item Value Reference Range Interpretation Comments Sed Rate (test code = 90 See_Comment [Auto mated message] The Sed Rate) system which ge nerated this result transmit delaney reference range : <=20. The reference range was not used to interpr et this result as leilani l/abnormal. [address]26 23:15:00 Test Item Value Reference Range Interpretation Comments Sed Rate (test code = 90 See_Comment [Auto mated message] The Sed Rate) system which ge nerated this result transmit delaney reference range : <=20. The reference range was not used to interpr et this result as leilani l/abnormal. [place] [address] 23:15:00 Test Item Value Reference Range Interpretation Comments Sed Rate (test code = 90 See_Comment [Auto mated message] The Sed Rate) system which ge nerated this result transmit delaney reference range : <=20. The reference range was not used to interpr et this result as leilani l/abnormal. [address]26 23:15:00 Test Item Value Reference Range Interpretation Comments Sed Rate (test code = 90 See_Comment [Auto mated message] The Sed Rate) system which ge nerated this result transmit delaney reference range : <=20. The reference range was not used to interpr et this result as leilani l/abnormal. [place] [address]-26 23:15:00 Test Item Value Reference Range Interpretation Comments Sed Rate (test code = 90 See_Comment [Auto mated message] The Sed Rate) system which ge nerated this result transmit delaney reference range : <=20. The reference range was not used to interpr et this result as leilani l/abnormal. [place] [address]-26 23:15:00 Test Item Value Reference Range Interpretation Comments Sed Rate (test code = 90 See_Comment [Auto mated message] The Sed Rate) system which ge nerated this result transmit delaney reference range : <=20. The reference range was not used to interpr et this result as leilani l/abnormal. [place] [address]-10-26 23:15:00 Test Item Value Reference Range Interpretation Comments Sed Rate (test code = 90 See_Comment [Auto mated message] The Sed Rate) system which ge nerated this result transmit delaney reference range : <=20. The reference range was not used to interpr et this result as leilani l/abnormal. [place] [address]-10-26 23:15:00 Test Item Value Reference Range Interpretation Comments Sed Rate (test code = 90 See_Comment [Auto mated message] The Sed Rate) system which ge nerated this result transmit delaney reference range : <=20. The reference range was not used to interpr et this result as leilani l/abnormal. [place] [address]-10-26 23:15:00 Test Item Value Reference Range Interpretation Comments Sed Rate (test code = 90 See_Comment [Auto mated message] The Sed Rate) system which ge nerated this result transmit delaney reference range : <=20. The reference range was not used to interpr et this result as leilani l/abnormal. [place] [address]-10-26 23:15:00 Test Item Value Reference Range Interpretation Comments Sed Rate (test code = 90 See_Comment [Auto mated message] The Sed Rate) system which ge nerated this result transmit delaney reference range : <=20. The reference range was not used to interpr et this result as leilani l/abnormal. [place] [address]-10-26 23:15:00 Test Item Value Reference Range Interpretation Comments Sed Rate (test code = 90 See_Comment [Auto mated message] The Sed Rate) system which ge nerated this result transmit delaney reference range : <=20. The reference range was not used to interpr et this result as leilani l/abnormal. [place] [address]-10-26 23:15:00 Test Item Value Reference Range Interpretation Comments Sed Rate (test code = 90 See_Comment [Auto mated message] The Sed Rate) system which ge nerated this result transmit delaney reference range : <=20. The reference range was not used to interpr et this result as leilani l/abnormal. [place] [address]-10-26 23:15:00 Test Item Value Reference Range Interpretation Comments Sed Rate (test code = 90 See_Comment [Auto mated message] The Sed Rate) system which ge nerated this result transmit delaney reference range : <=20. The reference range was not used to interpr et this result as leilani l/abnormal. [place] [address]-26 23:15:00 Test Item Value Reference Range Interpretation Comments Sed Rate (test code = 90 See_Comment [Auto mated message] The Sed Rate) system which ge nerated this result transmit delaney reference range : <=20. The reference range was not used to interpr et this result as leilani l/abnormal. [place] [address] 23:15:00 Test Item Value Reference Range Interpretation Comments Sed Rate (test code = 90 See_Comment [Auto mated message] The Sed Rate) system which ge nerated this result transmit delaney reference range : <=20. The reference range was not used to interpr et this result as leilani l/abnormal. [place] [address] 23:15:00 Test Item Value Reference Range Interpretation Comments Sed Rate (test code = 90 See_Comment [Auto mated message] The Sed Rate) system which ge nerated this result transmit delaney reference range : <=20. The reference range was not used to interpr et this result as leilani l/abnormal. [place] [address]-26 23:15:00 Test Item Value Reference Range Interpretation Comments Sed Rate (test code = 90 See_Comment [Auto mated message] The Sed Rate) system which ge nerated this result transmit delaney reference range : <=20. The reference range was not used to interpr et this result as leilani l/abnormal. [place] [address]-26 23:15:00 Test Item Value Reference Range Interpretation Comments Sed Rate (test code = 90 See_Comment [Auto mated message] The Sed Rate) system which ge nerated this result transmit delaney reference range : <=20. The reference range was not used to interpr et this result as leilani l/abnormal. [place] [address]-26 23:15:00 Test Item Value Reference Range Interpretation Comments Sed Rate (test code = 90 See_Comment [Auto mated message] The Sed Rate) system which ge nerated this result transmit delaney reference range : <=20. The reference range was not used to interpr et this result as leilani l/abnormal. [place] [address]-10-26 23:15:00 Test Item Value Reference Range Interpretation Comments Sed Rate (test code = 90 See_Comment [Auto mated message] The Sed Rate) system which ge nerated this result transmit delaney reference range : <=20. The reference range was not used to interpr et this result as leilani l/abnormal. [place] [address]-26 23:15:00 Test Item Value Reference Range Interpretation Comments Sed Rate (test code = 90 See_Comment [Auto mated message] The Sed Rate) system which ge nerated this result transmit delaney reference range : <=20. The reference range was not used to interpr et this result as leilani l/abnormal. [place] [address]-10-26 23:15:00 Test Item Value Reference Range Interpretation Comments Sed Rate (test code = 90 See_Comment [Auto mated message] The Sed Rate) system which ge nerated this result transmit delaney reference range : <=20. The reference range was not used to interpr et this result as leilani l/abnormal. [place] [address]-26 23:15:00 Test Item Value Reference Range Interpretation Comments Sed Rate (test code = 90 See_Comment [Auto mated message] The Sed Rate) system which ge nerated this result transmit delaney reference range : <=20. The reference range was not used to interpr et this result as leilani l/abnormal. [place] [address]-10-26 23:15:00 Test Item Value Reference Range Interpretation Comments Sed Rate (test code = 90 See_Comment [Auto mated message] The Sed Rate) system which ge nerated this result transmit delaney reference range : <=20. The reference range was not used to interpr et this result as leilani l/abnormal. [place] [address]-26 23:15:00 Test Item Value Reference Range Interpretation Comments Sed Rate (test code = Sed Rate) 90 <=20 [place] [address]-10-26 23:15:00 Test Item Value Reference Range Interpretation Comments Sed Rate (test code = Sed Rate) 90 <=20 [place] [address]-10-26 23:15:00 Test Item Value Reference Range Interpretation Comments Sed Rate (test code = Sed Rate) 90 <=20 [facility] 23:15:00 Test Item Value Reference Range Interpretation Comments Sed Rate (test code = Sed Rate) 90 <=20 [place] 406462-10-26 23:15:00 Test Item Value Reference Range Interpretation Comments Sed Rate (test code = Sed Rate) 90 <=20 [place] 406462-10-26 23:15:00 Test Item Value Reference Range Interpretation Comments Sed Rate (test code = Sed Rate) 90 <=20 [place] [address]-26 23:15:00 Test Item Value Reference Range Interpretation Comments Sed Rate (test code = Sed Rate) 90 <=20 [place] 406462-10-26 23:15:00 Test Item Value Reference Range Interpretation Comments Sed Rate (test code = Sed Rate) 90 <=20 [place] [address]-10-26 23:15:00 Test Item Value Reference Range Interpretation Comments Sed Rate (test code = Sed Rate) 90 <=20 [place] [address]-10-26 23:15:00 Test Item Value Reference Range Interpretation Comments Sed Rate (test code = Sed Rate) 90 <=20 [place] [address]-10-26 23:15:00 Test Item Value Reference Range Interpretation Comments Sed Rate (test code = 90 See_Comment [Auto mated message] The Sed Rate) system which ge nerated this result transmit delaney reference range : <=20. The reference range was not used to interpr et this result as leilani l/abnormal. [facility]UkllcuaWHWHOHEJYK9342-79-73 23:15:00 Test Item Value Reference Range Interpretation Comments Sed Rate (test code = Sed Rate) 90 <=20 [place] [address]-26 23:15:00 Test Item Value Reference Range Interpretation Comments Sed Rate (test code = Sed Rate) 90 <=20 [place] [address]-10-26 23:15:00 Test Item Value Reference Range Interpretation Comments Sed Rate (test code = Sed Rate) 90 <=20 [place] [address]-10-26 23:15:00 Test Item Value Reference Range Interpretation Comments Sed Rate (test code = Sed Rate) 90 <=20 [place] [address]-10-26 23:15:00 Test Item Value Reference Range Interpretation Comments Sed Rate (test code = Sed Rate) 90 <=20 [place] [address]-10-26 23:15:00 Test Item Value Reference Range Interpretation Comments Sed Rate (test code = Sed Rate) 90 <=20 [place] [address]-10-26 23:15:00 Test Item Value Reference Range Interpretation Comments Sed Rate (test code = Sed Rate) 90 <=20 [place] 406462-10-26 23:15:00 Test Item Value Reference Range Interpretation Comments Sed Rate (test code = Sed Rate) 90 <=20 [place] [address]-26 23:15:00 Test Item Value Reference Range Interpretation Comments Sed Rate (test code = Sed Rate) 90 <=20 [place] [address]-26 23:15:00 Test Item Value Reference Range Interpretation Comments Sed Rate (test code = 90 See_Comment [Auto mated message] The Sed Rate) system which ge nerated this result transmit delaney reference range : <=20. The reference range was not used to interpr et this result as leilani l/abnormal. [place] [address]-26 23:15:00 Test Item Value Reference Range Interpretation Comments Sed Rate (test code = 90 See_Comment [Auto mated message] The Sed Rate) system which ge nerated this result transmit delaney reference range : <=20. The reference range was not used to interpr et this result as leilani l/abnormal. [place] [address]-10-26 23:15:00 Test Item Value Reference Range Interpretation Comments Sed Rate (test code = 90 See_Comment [Auto mated message] The Sed Rate) system which ge nerated this result transmit delaney reference range : <=20. The reference range was not used to interpr et this result as leilani l/abnormal. [place] [address]-26 23:15:00 Test Item Value Reference Range Interpretation Comments Sed Rate (test code = 90 See_Comment [Auto mated message] The Sed Rate) system which ge nerated this result transmit delaney reference range : <=20. The reference range was not used to interpr et this result as leilani l/abnormal. [place] [address]-26 23:15:00 Test Item Value Reference Range Interpretation Comments Sed Rate (test code = 90 See_Comment [Auto mated message] The Sed Rate) system which ge nerated this result transmit delanye reference range : <=20. The reference range was not used to interpr et this result as leilani l/abnormal. [place] [address]-26 23:15:00 Test Item Value Reference Range Interpretation Comments Sed Rate (test code = 90 See_Comment [Auto mated message] The Sed Rate) system which ge nerated this result transmit delaney reference range : <=20. The reference range was not used to interpr et this result as leilani l/abnormal. [place] [address]-26 23:15:00 Test Item Value Reference Range Interpretation Comments Sed Rate (test code = 90 See_Comment [Auto mated message] The Sed Rate) system which ge nerated this result transmit delaney reference range : <=20. The reference range was not used to interpr et this result as leilani l/abnormal. [address]10-26 23:15:00 Test Item Value Reference Range Interpretation Comments Sed Rate (test code = 90 See_Comment [Auto mated message] The Sed Rate) system which ge nerated this result transmit delaney reference range : <=20. The reference range was not used to interpr et this result as leilani l/abnormal. [address]10-26 23:15:00 Test Item Value Reference Range Interpretation Comments Sed Rate (test code = 90 See_Comment [Auto mated message] The Sed Rate) system which ge nerated this result transmit delaney reference range : <=20. The reference range was not used to interpr et this result as leilani l/abnormal. [place] [address]-26 23:15:00 Test Item Value Reference Range Interpretation Comments Sed Rate (test code = 90 See_Comment [Auto mated message] The Sed Rate) system which ge nerated this result transmit delaney reference range : <=20. The reference range was not used to interpr et this result as leilani l/abnormal. [place] [address]-26 23:15:00 Test Item Value Reference Range Interpretation Comments Sed Rate (test code = 90 See_Comment [Auto mated message] The Sed Rate) system which ge nerated this result transmit delaney reference range : <=20. The reference range was not used to interpr et this result as leilani l/abnormal. [facility]OWBJPCTRF2580[facility] 23:15:00 Test Item Value Reference Range Interpretation Comments Sed Rate (test code = 90 See_Comment [Auto mated message] The Sed Rate) system which ge nerated this result transmit delaney reference range : <=20. The reference range was not used to interpr et this result as leilani l/abnormal. [facility] HospitalCqtmqaxRCKNKVMRQW1313-43-79 23:15:00 Test Item Value Reference Range Interpretation Comments Sed Rate (test code = 90 See_Comment [Auto mated message] The Sed Rate) system which ge nerated this result transmit delaney reference range : <=20. The reference range was not used to interpr et this result as leilani l/abnormal. [facility]wayCigeuxrPXPWSI3008-67-67 14:43:31 Test Item Value Reference Range Interpretation [...] was communicated to and acknowledged by Dr. Meng via telephone at 06/28/2022 10:15 by Gerald Pop MD [place] [id number] 14:43:31 Test Item Value Reference Range Interpretation [...] was communicated to and acknowledged by Dr. Meng via telephone at 06/28/2022 10:15 by Gerald Pop MD [facility] ParkwayIuerqqmZUVXUY9892-33-38 14:43:31 Test Item Value Reference Range Interpretation [...] was communicated to and acknowledged by Dr. Meng via telephone at 06/28/2022 10:15 by Gerald Pop MD [facility] ParkwayNwpnwzrJPSKZY8971-08-47 14:43:31 Test Item Value Reference Range Interpretation [...] was communicated to and acknowledged by Dr. Meng via telephone at 06/28/2022 10:15 by Gerald Pop MD [facility] ParkwayVdwqoznDWORXJ1127-25-15 14:43:31 Test Item Value Reference Range Interpretation [...] was communicated to and acknowledged by Dr. Catinis via telephone at 06/28/2022 10:15 by Gerald Pop [facility] CenterDqbqrseDINREA0417-78-73 14:43:31 Test Item Value Reference Range Interpretation [...] was communicated to and acknowledged by Dr. Meng via telephone at 06/28/2022 10:15 by Gerald Pop MD [facility] ParkwaySmbaxlhNSIWVS6230-54-46 14:43:31 Test Item Value Reference Range Interpretation [...] was communicated to and acknowledged by Dr. Meng via telephone at 06/28/2022 10:15 by Gerald Pop MD [facility] ParkwayJdcdscuVAAIOO0831-58-51 14:43:31 Test Item Value Reference Range Interpretation [...] was communicated to and acknowledged by Dr. Meng via telephone at 06/28/2022 10:15 by Gerald Pop MD [place] [id number] 14:43:31 Test Item Value Reference Range Interpretation [...] was communicated to and acknowledged by Dr. Meng via telephone at 06/28/2022 10:15 by Gerald Pop MD [facility] ParkwayLsfdbbaNWDAFN0681-44-59 14:43:31 Test Item Value Reference Range Interpretation [...] was communicated to and acknowledged by Dr. Meng via telephone at 06/28/2022 10:15 by Gerald Pop MD [facility] ParkwayBwtnvbhHPMDPN1126-79-25 14:43:31 Test Item Value Reference Range Interpretation [...] was communicated to and acknowledged by Dr. Meng via telephone at 06/28/2022 10:15 by Gerald Pop MD [facility] ParkwayDmohylaDDZCCN0119-04-29 14:43:31 Test Item Value Reference Range Interpretation [...] was communicated to and acknowledged by Dr. Meng via telephone at 06/28/2022 10:15 by Gerald Pop MD [facility] CenterAghhtccDSAPUV5113-67-62 14:43:31 Test Item Value Reference Range Interpretation [...] was communicated to and acknowledged by Dr. Meng via telephone at 06/28/2022 10:15 by Gerald Pop MD [facility] CenterAummubnMQMJQE8828-84-11 14:43:31 Test Item Value Reference Range Interpretation [...] was communicated to and acknowledged by Dr. Meng via telephone at 06/28/2022 10:15 by Gerald Pop MD [facility] ParkwayUvctxrvWHUHWS7793-02-75 14:43:31 Test Item Value Reference Range Interpretation [...] was communicated to and acknowledged by Dr. Meng via telephone at 06/28/2022 10:15 by Gerald Pop MD [facility] ParkwayZyemplkBQNUYI4003-61-61 14:43:31 Test Item Value Reference Range Interpretation [...] was communicated to and acknowledged by Dr. Meng via telephone at 06/28/2022 10:15 by Gerald Pop MD [place] [id number] 14:43:31 Test Item Value Reference Range Interpretation [...] was communicated to and acknowledged by Dr. Meng via telephone at 06/28/2022 10:15 by Gerald Pop MD [facility] ParkwayDtdustwMIACCP3188-64-42 14:43:31 Test Item Value Reference Range Interpretation [...] was communicated to and acknowledged by Dr. Meng via telephone at 06/28/2022 10:15 by Gerald Pop MD [facility] ParkwayFdjofuvLYCOQS2728-41-90 14:43:31 Test Item Value Reference Range Interpretation [...] was communicated to and acknowledged by Dr. Meng via telephone at 06/28/2022 10:15 by Gerald Pop MD [place] [id number] 14:43:31 Test Item Value Reference Range Interpretation [...] was communicated to and acknowledged by Dr. Meng via telephone at 06/28/2022 10:15 by Gerald Pop MD [facility] CenterYdyvsxrCRBPZZ8918-42-17 14:43:31 Test Item Value Reference Range Interpretation [...] was communicated to and acknowledged by Dr. Meng via telephone at 06/28/2022 10:15 by Gerald Pop MD [facility] CenterHzawrthXQNNCA9683-14-72 14:43:31 Test Item Value Reference Range Interpretation [...] was communicated to and acknowledged by Dr. Meng via telephone at 06/28/2022 10:15 by Gerald Pop MD [facility] ParkwayRvlispoBUPYBB3551-85-81 14:43:31 Test Item Value Reference Range Interpretation [...] was communicated to and acknowledged by Dr. Meng via telephone at 06/28/2022 10:15 by Gerald Pop MD [facility] ParkwaySueengiSLBWET2502-18-95 14:43:31 Test Item Value Reference Range Interpretation [...] was communicated to and acknowledged by Dr. Meng via telephone at 06/28/2022 10:15 by Gerald Pop MD [facility] ParkwayGdmzymgMUUCJO4656-96-48 14:43:31 Test Item Value Reference Range Interpretation [...] was communicated to and acknowledged by Dr. Meng via telephone at 06/28/2022 10:15 by Gerald Pop MD [facility] ParkwayVntehnqAKOAGC2096-50-72 14:43:31 Test Item Value Reference Range Interpretation [...] was communicated to and acknowledged by Dr. Meng via telephone at 06/28/2022 10:15 by Gerald Pop MD [facility] ParkwayIgpoimgOHUILT5166-39-66 14:43:31 Test Item Value Reference Range Interpretation [...] was communicated to and acknowledged by Dr. Meng via telephone at 06/28/2022 10:15 by Gerald Pop MD [facility] CenterLvneoxmZNXHVM8593-23-91 14:43:31 Test Item Value Reference Range Interpretation [...] was communicated to and acknowledged by Dr. Meng via telephone at 06/28/2022 10:15 by Gerald Pop MD [facility] CenterKqmxtlkVVNYYX6953-16-46 14:43:31 Test Item Value Reference Range Interpretation [...] was communicated to and acknowledged by Dr. Meng via telephone at 06/28/2022 10:15 by Gerald Pop MD [facility] ParkwayHhfhsyrAKHADI4842-76-68 14:43:31 Test Item Value Reference Range Interpretation [...] was communicated to and acknowledged by Dr. Meng via telephone at 06/28/2022 10:15 by Gerald Pop MD [facility] ParkwayWnaflerQQZVGS6193-73-11 14:43:31 Test Item Value Reference Range Interpretation [...] was communicated to and acknowledged by Dr. Meng via telephone at 06/28/2022 10:15 by [facility]wayXndnxfiJCCQZE0102-68-22 14:43:31 Test Item Value Reference Range Interpretation [...] was communicated to and acknowledged by Dr. Meng via telephone at 06/28/2022 10:15 by Gerald Pop MD [facility]wayAbptdwdRGWJPG1707-41-65 14:43:31 Test Item Value Reference Range Interpretation [...] was communicated to and acknowledged by Dr. Meng via telephone at 06/28/2022 10:15 by Gerald Pop MD [facility]wayCqopmbcZLZZVC5913-64-91 14:43:31 Test Item Value Reference Range Interpretation [...] was communicated to and acknowledged by Dr. Meng via telephone at 06/28/2022 10:15 by Gerald Pop MD [facility] CenterMtnkoxyMCANQE5995-57-45 14:43:31 Test Item Value Reference Range Interpretation [...] was communicated to and acknowledged by Dr. Meng via telephone at 06/28/2022 10:15 by Gerald Pop MD [facility] ParkwayYvlttdeENSDMR6856-58-35 14:43:31 Test Item Value Reference Range Interpretation [...] was communicated to and acknowledged by Dr. Meng via telephone at 06/28/2022 10:15 by Gerald Pop MD [facility] ParkwayGfnvyumYKJIOL8079-66-52 14:43:31 Test Item Value Reference Range Interpretation [...] was communicated to and acknowledged by Dr. Meng via telephone at 06/28/2022 10:15 by Gerald Pop MD [facility]wayXtwyyunKVTLJB1873-55-70 14:43:31 Test Item Value Reference Range Interpretation [...] was communicated to and acknowledged by Dr. Meng via telephone at 06/28/2022 10:15 by Gerald Pop MD [facility] ParkwayRutrrwwAIJYTD0590-50-02 14:43:31 Test Item Value Reference Range Interpretation [...] was communicated to and acknowledged by Dr. Meng via telephone at 06/28/2022 10:15 by Gerald Pop MD [facility] ParkwayRqopmncLEKIHZ9758-08-64 14:43:31 Test Item Value Reference Range Interpretation [...] was communicated to and acknowledged by Dr. Meng via telephone at 06/28/2022 10:15 by Gerald Pop MD [facility]wayNfeqdqwRKYNON0472-60-02 14:43:31 Test Item Value Reference Range Interpretation [...] was communicated to and acknowledged by Dr. Meng via telephone at 06/28/2022 10:15 by Gerald Pop MD [facility]wayDxrhwieXDQDBG6678-40-93 14:43:31 Test Item Value Reference Range Interpretation [...] was communicated to and acknowledged by Dr. Meng via telephone at 06/28/2022 10:15 by Gerald Pop MD [facility]wayHvugxcrVGAXOW4515-78-84 14:43:31 Test Item Value Reference Range Interpretation [...] was communicated to and acknowledged by Dr. Meng via telephone at 06/28/2022 10:15 by Gerald Pop MD [facility]wayWjxnaozZSTKBR1939-32-99 14:43:31 Test Item Value Reference Range Interpretation [...] was communicated to and acknowledged by Dr. Meng via telephone at 06/28/2022 10:15 by Gerald Pop MD [facility] ParkwayEziahltTSPSUH1178-06-55 14:43:31 Test Item Value Reference Range Interpretation [...] was communicated to and acknowledged by Dr. Meng via telephone at 06/28/2022 10:15 by Gerald Pop MD [facility] ParkwayKtvcicnYMHZSL2704-79-49 14:43:31 Test Item Value Reference Range Interpretation [...] was communicated to and acknowledged by Dr. Meng via telephone at 06/28/2022 10:15 by Gerald Pop MD [facility] CenterRogfqfhQKKMJA6124-41-93 14:43:31 Test Item Value Reference Range Interpretation [...] was communicated to and acknowledged by Dr. Meng via telephone at 06/28/2022 10:15 by Gerald Pop MD [facility]wayEqeylxnBWEMRD2771-44-63 14:43:31 Test Item Value Reference Range Interpretation [...] was communicated to and acknowledged by Dr. Meng via telephone at 06/28/2022 10:15 by Gerald Pop MD [facility] CenterPjkueqhCGNVXE3268-80-65 14:43:31 Test Item Value Reference Range Interpretation [...] was communicated to and acknowledged by Dr. Meng via telephone at 06/28/2022 10:15 by Gerald Pop MD [facility] ParkwayHotlltuVAGMYJ6796-63-13 14:43:31 Test Item Value Reference Range Interpretation [...] was communicated to and acknowledged by Dr. Meng via telephone at 06/28/2022 10:15 by Gerald Pop MD [facility]wayEzqwkjpHXAFZZ8451-32-30 14:43:31 Test Item Value Reference Range Interpretation [...] was communicated to and acknowledged by Dr. Meng via telephone at 06/28/2022 10:15 by Gerald Pop MD [place] [id number] 14:43:31 Test Item Value Reference Range Interpretation [...] was communicated to and acknowledged by Dr. Meng via telephone at 06/28/2022 10:15 by Gerald Pop MD [facility]wayCkhbdvoGLSQAV9338-24-85 14:43:31 Test Item Value Reference Range Interpretation [...] was communicated to and acknowledged by Dr. Meng via telephone at 06/28/2022 10:15 by Gerald Pop MD [facility] ParkwayBdoghqrUJQCWV0457-32-03 14:43:31 Test Item Value Reference Range Interpretation [...] was communicated to and acknowledged by Dr. Meng via telephone at 06/28/2022 10:15 by Gerald Pop MD [facility] ParkwayZfsizqxAYMBOA7477-29-34 14:43:31 Test Item Value Reference Range Interpretation [...] was communicated to and acknowledged by Dr. Catinis via telephone at 06/28/2022 10:15 by Gerald Pop MD [facility] CenterCsiazutIEOUGC2120-27-14 14:43:31 Test Item Value Reference Range Interpretation [...] was communicated to and acknowledged by Dr. Meng via telephone at 06/28/2022 10:15 by Gerald Pop MD [facility] ParkwayYzhsffzWRJYUP6520-01-74 14:43:31 Test Item Value Reference Range Interpretation [...] was communicated to and acknowledged by Dr. Meng via telephone at 06/28/2022 10:15 by Gerald Pop MD [facility] ParkwayRcucrrjNBBFJG2383-88-31 14:43:31 Test Item Value Reference Range Interpretation [...] was communicated to and acknowledged by Dr. Meng via telephone at 06/28/2022 10:15 by Gerald Pop MD [place] [id number] 14:43:31 Test Item Value Reference Range Interpretation [...] was communicated to and acknowledged by Dr. Meng via telephone at 06/28/2022 10:15 by Gerald Pop MD [facility] ParkwayQsdcrzgKRHPJM0746-48-90 14:43:31 Test Item Value Reference Range Interpretation [...] was communicated to and acknowledged by Dr. Meng via telephone at 06/28/2022 10:15 by Gerald Pop MD [facility] ParkwayTfscqflQWLKPM7264-29-29 14:43:31 Test Item Value Reference Range Interpretation [...] was communicated to and acknowledged by Dr. Meng via telephone at 06/28/2022 10:15 by Gerald Pop MD [facility] ParkwayVnsihprEQRCPL7853-65-04 14:43:31 Test Item Value Reference Range Interpretation [...] was communicated to and acknowledged by Dr. Meng via telephone at 06/28/2022 10:15 by Gerald Pop MD [facility] CenterTyhvsklICPEXE3315-84-04 14:43:31 Test Item Value Reference Range Interpretation [...] was communicated to and acknowledged by Dr. Meng via telephone at 06/28/2022 10:15 by Gerald Pop MD [facility] CenterDrwnwruLQOULD4891-81-16 14:43:31 Test Item Value Reference Range Interpretation [...] was communicated to and acknowledged by Dr. Meng via telephone at 06/28/2022 10:15 by Gerald Pop MD [facility] ParkwayZcyycmkVALNLI3917-08-63 14:43:31 Test Item Value Reference Range Interpretation [...] was communicated to and acknowledged by Dr. Meng via telephone at 06/28/2022 10:15 by Gerald Pop MD [facility] ParkwayQnjkuudLTSMLW7832-02-12 14:43:31 Test Item Value Reference Range Interpretation [...] was communicated to and acknowledged by Dr. Meng via telephone at 06/28/2022 10:15 by Gerald Pop MD [place] [id number] 14:43:31 Test Item Value Reference Range Interpretation [...] was communicated to and acknowledged by Dr. Meng via telephone at 06/28/2022 10:15 by Gerald Pop MD [facility] ParkwayYjzolmwFCOIUE6729-23-88 14:43:31 Test Item Value Reference Range Interpretation [...] was communicated to and acknowledged by Dr. Meng via telephone at 06/28/2022 10:15 by Gerald Pop MD [facility] ParkwayBnepzqkOZIMGA8140-82-13 14:43:31 Test Item Value Reference Range Interpretation [...] was communicated to and acknowledged by Dr. Meng via telephone at 06/28/2022 10:15 by Gerald Pop MD [place] [id number] 14:43:31 Test Item Value Reference Range Interpretation [...] was communicated to and acknowledged by Dr. Meng via telephone at 06/28/2022 10:15 by Gerald Pop MD [facility] CenterSpfyeakWOTCVJ4713-50-31 14:43:31 Test Item Value Reference Range Interpretation [...] was communicated to and acknowledged by Dr. Meng via telephone at 06/28/2022 10:15 by Gerald Pop MD [facility] CenterWrekyhnRFWUBC1612-50-93 14:43:31 Test Item Value Reference Range Interpretation [...] was communicated to and acknowledged by Dr. Meng via telephone at 06/28/2022 10:15 by Gerald Pop MD [facility] ParkwayDicsuepMQRIDX4021-30-71 14:43:31 Test Item Value Reference Range Interpretation [...] was communicated to and acknowledged by Dr. Meng via telephone at 06/28/2022 10:15 by Gerald Pop MD [facility] ParkwayWgcyxlnEUKXLK5790-89-49 14:43:31 Test Item Value Reference Range Interpretation [...] was communicated to and acknowledged by Dr. Meng via telephone at 06/28/2022 10:15 by Gerald Pop MD [facility]wayNqeqalhFDFDQA7523-64-65 14:43:31 Test Item Value Reference Range Interpretation [...] was communicated to and acknowledged by Dr. Meng via telephone at 06/28/2022 10:15 by Gerald Pop MD [facility] ParkwaySqmyuwaLFNFPK5022-51-16 14:43:31 Test Item Value Reference Range Interpretation [...] was communicated to and acknowledged by Dr. Meng via telephone at 06/28/2022 10:15 by Gerald Pop MD [facility] ParkwayHivirgxGODVUD0820-99-56 14:43:31 Test Item Value Reference Range Interpretation [...] was communicated to and acknowledged by Dr. Meng via telephone at 06/28/2022 10:15 by Gerald Pop MD [facility] CenterNqachvsSMSRCE7565-10-91 14:43:31 Test Item Value Reference Range Interpretation [...] was communicated to and acknowledged by Dr. Meng via telephone at 06/28/2022 10:15 by Gerald Pop MD [facility] CenterGklenheBXOCRT0983-06-88 14:43:31 Test Item Value Reference Range Interpretation [...] was communicated to and acknowledged by Dr. Meng via telephone at 06/28/2022 10:15 by Gerald Pop MD [facility] ParkwayTqgovgnQVFPLU0218-53-26 14:43:31 Test Item Value Reference Range Interpretation [...] was communicated to and acknowledged by Dr. Meng via telephone at 06/28/2022 10:15 by Gerald Pop MD [facility] ParkwaySmyjchhCNJPDV8114-12-90 14:43:31 Test Item Value Reference Range Interpretation [...] was communicated to and acknowledged by Dr. Meng via telephone at 06/28/2022 10:15 by Gerald Pop MD [facility] ParkwayImassdrTPCRAY7218-84-56 14:43:31 Test Item Value Reference Range Interpretation [...] was communicated to and acknowledged by Dr. Meng via telephone at 06/28/2022 10:15 by Gerald Pop MD [facility] ParkwayLiybmxeWALCJO8922-06-93 14:43:31 Test Item Value Reference Range Interpretation [...] was communicated to and acknowledged by Dr. Meng via telephone at 06/28/2022 10:15 by Gerald Pop MD [facility] ParkwayZsnvfswMQSODR2618-68-55 14:43:31 Test Item Value Reference Range Interpretation [...] was communicated to and acknowledged by Dr. Meng via telephone at 06/28/2022 10:15 by Gerald Pop MD [facility] CenterQhyguusQUYZRS6498-22-64 14:43:31 Test Item Value Reference Range Interpretation [...] was communicated to and acknowledged by Dr. Meng via telephone at 06/28/2022 10:15 by Gerald Pop MD [facility] ParkwayLfhvzriQSGWRH9446-91-68 14:43:31 Test Item Value Reference Range Interpretation [...] was communicated to and acknowledged by Dr. Meng via telephone at 06/28/2022 10:15 by Gerald Pop MD [facility] ParkwayJznophdFWHXXA9074-13-16 14:43:31 Test Item Value Reference Range Interpretation [...] was communicated to and acknowledged by Dr. Meng via telephone at 06/28/2022 10:15 by Gerald Pop MD [facility] ParkwayZziksziQXGJMP3193-07-39 14:43:31 Test Item Value Reference Range Interpretation [...] was communicated to and acknowledged by Dr. Meng via telephone at 06/28/2022 10:15 by Gerald Pop MD [facility] ParkwayDyojnpdDZJRDC5079-78-23 14:43:31 Test Item Value Reference Range Interpretation [...] was communicated to and acknowledged by Dr. Meng via telephone at 06/28/2022 10:15 by Gerald Pop MD [facility] ParkwayKcokjybZOVTFI4635-37-10 14:43:31 Test Item Value Reference Range Interpretation [...] was communicated to and acknowledged by Dr. Meng via telephone at 06/28/2022 10:15 by Gerald Pop MD [facility] ParkwayWoxygvzGXBPGN7119-48-56 14:43:31 Test Item Value Reference Range Interpretation [...] was communicated to and acknowledged by Dr. Meng via telephone at 06/28/2022 10:15 by Gerald Pop MD [facility] ParkwayWicxxqsWNYGWR4690-03-77 14:43:31 Test Item Value Reference Range Interpretation [...] was communicated to and acknowledged by Dr. Meng via telephone at 06/28/2022 10:15 by Gerald Pop MD [facility] ParkwayVrzwawyKRRCID6805-69-03 14:43:31 Test Item Value Reference Range Interpretation [...] was communicated to and acknowledged by Dr. Meng via telephone at 06/28/2022 10:15 by Gerald Pop MD [facility] ParkwayPxiocatDGCECA6476-29-63 14:43:31 Test Item Value Reference Range Interpretation [...] was communicated to and acknowledged by Dr. Meng via telephone at 06/28/2022 10:15 by Gerald Pop MD [facility]wayPtlsxsqCQTFOW4121-95-63 14:43:31 Test Item Value Reference Range Interpretation [...] was communicated to and acknowledged by Dr. Meng via telephone at 06/28/2022 10:15 by Gerald Pop MD [facility] ParkwayDtgcnyhTOQMZS8335-14-71 14:43:31 Test Item Value Reference Range Interpretation [...] was communicated to and acknowledged by Dr. Meng via telephone at 06/28/2022 10:15 by Gerald Pop MD [facility] CenterTplwrvgMWBRXW9776-85-04 14:43:31 Test Item Value Reference Range Interpretation [...] was communicated to and acknowledged by Dr. Meng via telephone at 06/28/2022 10:15 by Gerald Pop MD [facility] ParkwayMlsbjmaWCWYUG6524-26-47 14:43:31 Test Item Value Reference Range Interpretation [...] was communicated to and acknowledged by Dr. Meng via telephone at 06/28/2022 10:15 by Gerald Pop MD [facility] CenterNdtwyzvCSKBHU1068-00-93 14:43:31 Test Item Value Reference Range Interpretation [...] was communicated to and acknowledged by Dr. Meng via telephone at 06/28/2022 10:15 by Gerald Pop MD [facility] ParkwayFqtxotjYFJUAJ8478-90-90 14:43:31 Test Item Value Reference Range Interpretation [...] was communicated to and acknowledged by Dr. Meng via telephone at 06/28/2022 10:15 by Gerald Pop MD [facility] ParkwayUdhylesFFOHCT7963-22-97 14:43:31 Test Item Value Reference Range Interpretation [...] was communicated to and acknowledged by Dr. Meng via telephone at 06/28/2022 10:15 by Gerald Pop MD [place] [id number] 14:43:31 Test Item Value Reference Range Interpretation [...] was communicated to and acknowledged by Dr. Meng via telephone at 06/28/2022 10:15 by Gerald Pop MD [facility] ParkwayNwgrjixHWHPLS8461-97-70 14:43:31 Test Item Value Reference Range Interpretation [...] was communicated to and acknowledged by Dr. Meng via telephone at 06/28/2022 10:15 by Gerald Pop MD [facility] ParkwayJwihzkmTCLRLK3455-64-44 14:43:31 Test Item Value Reference Range Interpretation [...] was communicated to and acknowledged by Dr. Meng via telephone at 06/28/2022 10:15 by Gerald Pop MD [facility] ParkwayIuxgypwMCDSDZ5810-76-42 14:43:31 Test Item Value Reference Range Interpretation [...] was communicated to and acknowledged by Dr. Catinis via telephone at 06/28/2022 10:15 by Gerald Pop MD [facility] CenterVdzmrfnIAIQMS6778-58-00 14:43:31 Test Item Value Reference Range Interpretation [...] was communicated to and acknowledged by Dr. Meng via telephone at 06/28/2022 10:15 by Gerald Pop MD [facility] ParkwayDjqhuduSWEYMO3521-43-80 14:43:31 Test Item Value Reference Range Interpretation [...] was communicated to and acknowledged by Dr. Meng via telephone at 06/28/2022 10:15 by Gerald Pop MD [facility] ParkwayMvfqemoWNDKOV4822-32-55 14:43:31 Test Item Value Reference Range Interpretation [...] was communicated to and acknowledged by Dr. Meng via telephone at 06/28/2022 10:15 by Gerald Pop MD [place] [id number] 14:43:31 Test Item Value Reference Range Interpretation [...] was communicated to and acknowledged by Dr. Meng via telephone at 06/28/2022 10:15 by Gerald Pop MD [facility]wayDfsmkkgJFDGOS6234-66-75 14:43:31 Test Item Value Reference Range Interpretation [...] was communicated to and acknowledged by Dr. Meng via telephone at 06/28/2022 10:15 by Gerald Pop MD [facility] ParkwayHxovesrXTAHID3020-47-83 14:43:31 Test Item Value Reference Range Interpretation [...] was communicated to and acknowledged by Dr. Meng via telephone at 06/28/2022 10:15 by Gerald Pop MD [facility] ParkwayAwqdltbXBZVIB9514-16-53 14:43:31 Test Item Value Reference Range Interpretation [...] was communicated to and acknowledged by Dr. Meng via telephone at 06/28/2022 10:15 by Gerald Pop MD [facility] CenterSttcijvDJWJGI6033-32-08 14:43:31 Test Item Value Reference Range Interpretation [...] was communicated to and acknowledged by Dr. Meng via telephone at 06/28/2022 10:15 by Gerald Pop MD [facility] CenterDfhpgjdGMGOOZ0781-38-35 14:43:31 Test Item Value Reference Range Interpretation [...] was communicated to and acknowledged by Dr. Meng via telephone at 06/28/2022 10:15 by Gerald Pop MD [facility] ParkwayYsffqhbVDMZCO4925-39-62 14:43:31 Test Item Value Reference Range Interpretation [...] was communicated to and acknowledged by Dr. Meng via telephone at 06/28/2022 10:15 by Gerald Pop MD [facility] ParkwayOxvzuroWQASJN6789-37-86 14:43:31 Test Item Value Reference Range Interpretation [...] was communicated to and acknowledged by Dr. Meng via telephone at 06/28/2022 10:15 by Gerald Pop MD [place] [id number] 14:43:31 Test Item Value Reference Range Interpretation [...] was communicated to and acknowledged by Dr. Meng via telephone at 06/28/2022 10:15 by Gerald Pop MD [facility] ParkwaySzyayzoUOLUEV9351-73-73 14:43:31 Test Item Value Reference Range Interpretation [...] was communicated to and acknowledged by Dr. Meng via telephone at 06/28/2022 10:15 by Gerald Pop MD [facility] ParkwayWbmobmaJTJSJC8895-38-59 14:43:31 Test Item Value Reference Range Interpretation [...] was communicated to and acknowledged by Dr. Meng via telephone at 06/28/2022 10:15 by Gerald Pop MD [place] [id number] 14:43:31 Test Item Value Reference Range Interpretation [...] was communicated to and acknowledged by Dr. Meng via telephone at 06/28/2022 10:15 by Gerald Pop MD [facility] CenterUdmuxdqYCQFES2445-29-12 14:43:31 Test Item Value Reference Range Interpretation [...] was communicated to and acknowledged by Dr. Meng via telephone at 06/28/2022 10:15 by Gerald Pop MD [facility] CenterRmjmozhIUYPGP6247-09-83 14:43:31 Test Item Value Reference Range Interpretation [...] was communicated to and acknowledged by Dr. Meng via telephone at 06/28/2022 10:15 by Gerald Pop MD [facility] ParkwayRqiymzqMPHAUZ8930-93-91 14:43:31 Test Item Value Reference Range Interpretation [...] was communicated to and acknowledged by Dr. Meng via telephone at 06/28/2022 10:15 by Gerald Pop MD [facility] ParkwayMrjaotyVPMCBE7705-41-82 14:43:31 Test Item Value Reference Range Interpretation [...] was communicated to and acknowledged by Dr. Meng via telephone at 06/28/2022 10:15 by Gerald Pop MD [facility] ParkwayJbzobobWXPADM0502-05-17 14:43:31 Test Item Value Reference Range Interpretation [...] was communicated to and acknowledged by Dr. Meng via telephone at 06/28/2022 10:15 by Gerald Pop MD [facility] ParkwayPuqkzaiKUUGOV9523-07-56 14:43:31 Test Item Value Reference Range Interpretation [...] was communicated to and acknowledged by Dr. Meng via telephone at 06/28/2022 10:15 by Gerald Pop MD [facility] ParkwayQthlhohNNCSCM3442-88-33 14:43:31 Test Item Value Reference Range Interpretation [...] was communicated to and acknowledged by Dr. Meng via telephone at 06/28/2022 10:15 by Gerald Pop MD [facility] CenterUdnrnmlQXLPCD1556-48-28 14:43:31 Test Item Value Reference Range Interpretation [...] was communicated to and acknowledged by Dr. Meng via telephone at 06/28/2022 10:15 by Gerald Pop MD [facility] CenterPoidafqZLWXHC0904-22-73 14:43:31 Test Item Value Reference Range Interpretation [...] was communicated to and acknowledged by Dr. Meng via telephone at 06/28/2022 10:15 by Gerald Pop MD [facility] ParkwayMndgtxgEZRVPJ5332-25-70 14:43:31 Test Item Value Reference Range Interpretation [...] was communicated to and acknowledged by Dr. Meng via telephone at 06/28/2022 10:15 by Gerald Pop MD [facility] ParkwayAzcfrhzUVVODI5713-20-55 14:43:31 Test Item Value Reference Range Interpretation [...] was communicated to and acknowledged by Dr. Meng via telephone at 06/28/2022 10:15 by Gerald Pop MD [facility] ParkwayOnrhbdvVJWBXP6436-61-28 14:43:31 Test Item Value Reference Range Interpretation [...] was communicated to and acknowledged by Dr. Meng via telephone at 06/28/2022 10:15 by Gerald Pop MD [facility] ParkwayKifqnvcJFNCOR7511-15-21 14:43:31 Test Item Value Reference Range Interpretation [...] was communicated to and acknowledged by Dr. Meng via telephone at 06/28/2022 10:15 by Gerald Pop MD [facility] ParkwayJcpjjntNREMTC1241-17-63 14:43:31 Test Item Value Reference Range Interpretation [...] was communicated to and acknowledged by Dr. Meng via telephone at 06/28/2022 10:15 by Gerald Pop MD [facility] CenterKyypbgpPICSTZ1013-49-71 14:43:31 Test Item Value Reference Range Interpretation [...] was communicated to and acknowledged by Dr. Meng via telephone at 06/28/2022 10:15 by Gerald Pop MD [facility] ParkwayTldgvusKPIJDJ2912-23-70 14:43:31 Test Item Value Reference Range Interpretation [...] was communicated to and acknowledged by Dr. Meng via telephone at 06/28/2022 10:15 by Gerald Pop MD [facility] ParkwayTtxqsueNGUKMA7624-73-11 14:43:31 Test Item Value Reference Range Interpretation [...] was communicated to and acknowledged by Dr. Meng via telephone at 06/28/2022 10:15 by Gerald Pop MD [facility]wayEmtsajqRTJMTC0186-22-51 14:43:31 Test Item Value Reference Range Interpretation [...] was communicated to and acknowledged by Dr. Meng via telephone at 06/28/2022 10:15 by Gerald Pop MD [facility] ParkwayNxpemmrVXAIWS4476-87-56 14:43:31 Test Item Value Reference Range Interpretation [...] was communicated to and acknowledged by Dr. Meng via telephone at 06/28/2022 10:15 by Gerald Pop MD [facility] ParkwayDjihhbpFERGNF3734-96-73 14:43:31 Test Item Value Reference Range Interpretation [...] was communicated to and acknowledged by Dr. Meng via telephone at 06/28/2022 10:15 by Gerald Pop MD [facility] ParkwayOrsajdoXTLRNQ9037-70-50 14:43:31 Test Item Value Reference Range Interpretation [...] was communicated to and acknowledged by Dr. Meng via telephone at 06/28/2022 10:15 by Gerald Pop MD [facility] ParkwayTarbvtvGHISZV9844-70-25 14:43:31 Test Item Value Reference Range Interpretation [...] was communicated to and acknowledged by Dr. Meng via telephone at 06/28/2022 10:15 by Gerald Pop MD [facility] ParkwayBhaewuyPDXGGJ5632-93-00 14:43:31 Test Item Value Reference Range Interpretation [...] was communicated to and acknowledged by Dr. Meng via telephone at 06/28/2022 10:15 by Gerald Pop MD [facility] ParkwayWsndnmePICDFX4851-63-16 14:43:31 Test Item Value Reference Range Interpretation [...] was communicated to and acknowledged by Dr. Meng via telephone at 06/28/2022 10:15 by Gerald Pop MD [facility] ParkwayBckknjdGECLUS9982-12-31 14:43:31 Test Item Value Reference Range Interpretation [...] was communicated to and acknowledged by Dr. Meng via telephone at 06/28/2022 10:15 by Gerald Pop MD [facility] ParkwayQbkulgzPJGMOT6452-44-15 14:43:31 Test Item Value Reference Range Interpretation [...] was communicated to and acknowledged by Dr. Meng via telephone at 06/28/2022 10:15 by Gerald Pop [facility] CenterKdvjszrEZOOQW9657-68-82 14:43:31 Test Item Value Reference Range Interpretation [...] was communicated to and acknowledged by Dr. Meng via telephone at 06/28/2022 10:15 by Gerald Pop MD [facility] ParkwayQusrurmITGWUT9050-01-36 14:43:31 Test Item Value Reference Range Interpretation [...] was communicated to and acknowledged by Dr. Meng via telephone at 06/28/2022 10:15 by Gerald Pop MD [facility] CenterNhrnbfdRSLWDP1417-16-51 14:43:31 Test Item Value Reference Range Interpretation [...] was communicated to and acknowledged by Dr. Meng via telephone at 06/28/2022 10:15 by Gerald Pop MD [facility] ParkwayKiqfwpwWHDAWM4352-79-21 14:43:31 Test Item Value Reference Range Interpretation [...] was communicated to and acknowledged by Dr. Meng via telephone at 06/28/2022 10:15 by Gerald Pop MD [facility] ParkwayCdpiumqWADWIJ2518-15-66 14:43:31 Test Item Value Reference Range Interpretation [...] was communicated to and acknowledged by Dr. Meng via telephone at 06/28/2022 10:15 by Gerald Pop MD [place] [id number] 14:43:31 Test Item Value Reference Range Interpretation [...] was communicated to and acknowledged by Dr. Meng via telephone at 06/28/2022 10:15 by Gerald Pop MD [facility] ParkwayMbsiwbzYZBAAG9588-46-88 14:43:31 Test Item Value Reference Range Interpretation [...] was communicated to and acknowledged by Dr. Meng via telephone at 06/28/2022 10:15 by Gerald Pop MD [facility] ParkwayFabbpfyPKVJYJ3400-13-46 14:43:31 Test Item Value Reference Range Interpretation [...] was communicated to and acknowledged by Dr. Meng via telephone at 06/28/2022 10:15 by Gerald Pop MD [facility] ParkwayEbfkfpsYYQMVD6310-04-15 14:43:31 Test Item Value Reference Range Interpretation [...] was communicated to and acknowledged by Dr. Catinis via telephone at 06/28/2022 10:15 by Gerald Pop MD [facility] CenterZvffjogBJMEYJ9343-87-76 14:43:31 Test Item Value Reference Range Interpretation [...] was communicated to and acknowledged by Dr. Meng via telephone at 06/28/2022 10:15 by Gerald Pop MD [facility] ParkwayZjlsskwZEZQYU0260-72-04 14:43:31 Test Item Value Reference Range Interpretation [...] was communicated to and acknowledged by Dr. Meng via telephone at 06/28/2022 10:15 by Gerald Pop MD [facility] ParkwayKvcwvedYOLLYA6241-94-34 14:43:31 Test Item Value Reference Range Interpretation [...] was communicated to and acknowledged by Dr. Meng via telephone at 06/28/2022 10:15 by Gerald Pop MD [place] [id number] 14:43:31 Test Item Value Reference Range Interpretation [...] was communicated to and acknowledged by Dr. Meng via telephone at 06/28/2022 10:15 by Gerald Pop MD [facility] ParkwayHdbioyyYYMHCW0668-80-07 14:43:31 Test Item Value Reference Range Interpretation [...] was communicated to and acknowledged by Dr. Meng via telephone at 06/28/2022 10:15 by Gerald Pop MD [facility] ParkwayOswertgVBAXOL2955-23-67 14:43:31 Test Item Value Reference Range Interpretation [...] was communicated to and acknowledged by Dr. Meng via telephone at 06/28/2022 10:15 by Gerald Pop MD [facility] ParkwayVvyqjtuQIRREX3090-18-37 14:43:31 Test Item Value Reference Range Interpretation [...] was communicated to and acknowledged by Dr. Meng via telephone at 06/28/2022 10:15 by Gerald Pop MD [facility] CenterQoocrvwLLOKKF3593-06-21 14:43:31 Test Item Value Reference Range Interpretation [...] was communicated to and acknowledged by Dr. Meng via telephone at 06/28/2022 10:15 by Gerald Pop MD [facility] CenterNorovloPWILMV0595-55-00 14:43:31 Test Item Value Reference Range Interpretation [...] was communicated to and acknowledged by Dr. Megn via telephone at 06/28/2022 10:15 by Gerald Pop MD [facility] ParkwayPifgxofIYECWH8893-17-62 14:43:31 Test Item Value Reference Range Interpretation [...] was communicated to and acknowledged by Dr. Meng via telephone at 06/28/2022 10:15 by Gerald Pop MD [facility] ParkwayTpggunoZIHUCL7608-64-81 14:43:31 Test Item Value Reference Range Interpretation [...] was communicated to and acknowledged by Dr. Meng via telephone at 06/28/2022 10:15 by Gerald Pop MD [place] [id number] 14:43:31 Test Item Value Reference Range Interpretation [...] was communicated to and acknowledged by Dr. Meng via telephone at 06/28/2022 10:15 by Gerald Pop MD [facility] ParkwayKvrlpueZCZOQI7881-12-26 14:43:31 Test Item Value Reference Range Interpretation [...] was communicated to and acknowledged by Dr. Meng via telephone at 06/28/2022 10:15 by Gerald Pop MD [facility] ParkwayKupuzsoNUQMRF8006-62-95 14:43:31 Test Item Value Reference Range Interpretation [...] was communicated to and acknowledged by Dr. Meng via telephone at 06/28/2022 10:15 by Gerald Pop MD [place] [id number] 14:43:31 Test Item Value Reference Range Interpretation [...] was communicated to and acknowledged by Dr. Meng via telephone at 06/28/2022 10:15 by Gerald Pop MD [facility] CenterSbgqlvbREMCVT3955-04-51 14:43:31 Test Item Value Reference Range Interpretation [...] was communicated to and acknowledged by Dr. Meng via telephone at 06/28/2022 10:15 by Gerald Pop MD [facility] CenterOtxpnzgDWPIAU6785-28-67 14:43:31 Test Item Value Reference Range Interpretation [...] was communicated to and acknowledged by Dr. Meng via telephone at 06/28/2022 10:15 by Gerald Pop MD [facility] ParkwayPqfqsfbTCLAYO3686-64-07 14:43:31 Test Item Value Reference Range Interpretation [...] was communicated to and acknowledged by Dr. Meng via telephone at 06/28/2022 10:15 by Gerald Pop MD [facility] ParkwayNrguccyKMTTKL5178-12-02 14:43:31 Test Item Value Reference Range Interpretation [...] was communicated to and acknowledged by Dr. Meng via telephone at 06/28/2022 10:15 by Gerald Pop MD [facility] ParkwaySrtzvxpKPDSLA6187-63-22 14:43:31 Test Item Value Reference Range Interpretation [...] was communicated to and acknowledged by Dr. Meng via telephone at 06/28/2022 10:15 by Gerald Pop MD [facility] ParkwayCvbhodjTMEJOA7861-40-84 14:43:31 Test Item Value Reference Range Interpretation [...] was communicated to and acknowledged by Dr. Meng via telephone at 06/28/2022 10:15 by Gerald Pop MD [facility] ParkwayNnwbpmlHYKUCF9559-25-04 14:43:31 Test Item Value Reference Range Interpretation [...] was communicated to and acknowledged by Dr. Meng via telephone at 06/28/2022 10:15 by Gerald Pop MD [facility] CenterHpngjeuAUVEOE3731-25-13 14:43:31 Test Item Value Reference Range Interpretation [...] was communicated to and acknowledged by Dr. Meng via telephone at 06/28/2022 10:15 by Gerald Pop MD [facility] CenterZoyyqdgQUFQGM6300-27-04 14:43:31 Test Item Value Reference Range Interpretation [...] was communicated to and acknowledged by Dr. Meng via telephone at 06/28/2022 10:15 by Gerald Pop MD [facility] ParkwayLkaklycIAVLGQ6403-84-93 14:43:31 Test Item Value Reference Range Interpretation [...] was communicated to and acknowledged by Dr. Meng via telephone at 06/28/2022 10:15 by Gerald Pop MD [facility] ParkwayUaigrnpAODKNP8208-16-79 14:43:31 Test Item Value Reference Range Interpretation [...] was communicated to and acknowledged by Dr. Meng via telephone at 06/28/2022 10:15 by Gerald Pop MD [facility] ParkwayGcilqnoHTXFBK0299-09-10 14:43:31 Test Item Value Reference Range Interpretation [...] was communicated to and acknowledged by Dr. Meng via telephone at 06/28/2022 10:15 by Gerald Pop MD [facility] ParkwayHuxmflyNDCHOE7816-44-01 14:43:31 Test Item Value Reference Range Interpretation [...] was communicated to and acknowledged by Dr. Meng via telephone at 06/28/2022 10:15 by Gerald Pop MD [facility] ParkwayDhjjhhyNPKBWR7787-77-82 14:43:31 Test Item Value Reference Range Interpretation [...] was communicated to and acknowledged by Dr. Meng via telephone at 06/28/2022 10:15 by Gerald Pop MD [facility] CenterBeymiscLVVGIG6380-86-39 14:43:31 Test Item Value Reference Range Interpretation [...] was communicated to and acknowledged by Dr. Meng via telephone at 06/28/2022 10:15 by Gerald Pop MD [facility] ParkwayGmizyovVCQVIP7966-04-63 14:43:31 Test Item Value Reference Range Interpretation [...] was communicated to and acknowledged by Dr. Meng via telephone at 06/28/2022 10:15 by Gerald Pop MD [place] [id number] 11:00:00 Test Item Value Reference Range Interpretation Comments Gluc POC Comment 2 (test code = Sent to lab Gluc POC Comment 2) [place] [id number] 11:00:00 Test Item Value Reference Range Interpretation Comments Gluc POC Comment 2 (test code = Sent to lab Gluc POC Comment 2) [place] [id number] 11:00:00 Test Item Value Reference Range Interpretation Comments Gluc POC Comment 2 (test code = Sent to lab Gluc POC Comment 2) [place] [id number] 11:00:00 Test Item Value Reference Range Interpretation Comments Gluc POC Comment 2 (test code = Sent to lab Gluc POC Comment 2) [place] [id number] 11:00:00 Test Item Value Reference Range Interpretation Comments Gluc POC Comment 2 (test code = Sent to lab Gluc POC Comment 2) [place] [id number] 11:00:00 Test Item Value Reference Range Interpretation Comments Gluc POC Comment 2 (test code = Sent to lab Gluc POC Comment 2) [place] [id number] 11:00:00 Test Item Value Reference Range Interpretation Comments Gluc POC Comment 2 (test code = Sent to lab Gluc POC Comment 2) [place] [id number] 11:00:00 Test Item Value Reference Range Interpretation Comments Gluc POC Comment 2 (test code = Sent to lab Gluc POC Comment 2) [facility]2022-10-25 11:00:00 Test Item Value Reference Range Interpretation Comments Gluc POC Comment 2 (test code = Sent to lab Gluc POC Comment 2) [facility]2022-10-25 11:00:00 Test Item Value Reference Range Interpretation Comments Gluc POC Comment 2 (test code = Sent to lab Gluc POC Comment 2) [facility]2022-10-25 11:00:00 Test Item Value Reference Range Interpretation Comments Gluc POC Comment 2 (test code = Sent to lab Gluc POC Comment 2) [facility]2022-10-25 11:00:00 Test Item Value Reference Range Interpretation Comments Gluc POC Comment 2 (test code = Sent to lab Gluc POC Comment 2) [facility]2022-10-25 11:00:00 Test Item Value Reference Range Interpretation Comments Gluc POC Comment 2 (test code = Sent to lab Gluc POC Comment 2) [facility]2022-10-25 11:00:00 Test Item Value Reference Range Interpretation Comments Gluc POC Comment 2 (test code = Sent to lab Gluc POC Comment 2) [facility]2022-10-25 11:00:00 Test Item Value Reference Range Interpretation Comments Gluc POC Comment 2 (test code = Sent to lab Gluc POC Comment 2) [facility]2022-10-25 11:00:00 Test Item Value Reference Range Interpretation Comments Gluc POC Comment 2 (test code = Sent to lab Gluc POC Comment 2) [facility]2022-10-25 11:00:00 Test Item Value Reference Range Interpretation Comments Gluc POC Comment 2 (test code = Sent to lab Gluc POC Comment 2) [facility]2022-10-25 11:00:00 Test Item Value Reference Range Interpretation Comments Gluc POC Comment 2 (test code = Sent to lab Gluc POC Comment 2) [facility]2022-10-25 11:00:00 Test Item Value Reference Range Interpretation Comments Gluc POC Comment 2 (test code = Sent to lab Gluc POC Comment 2) [place] [id number] 11:00:00 Test Item Value Reference Range Interpretation Comments Gluc POC Comment 2 (test code = Sent to lab Gluc POC Comment 2) [facility]2022-10-25 11:00:00 Test Item Value Reference Range Interpretation Comments Gluc POC Comment 2 (test code = Sent to lab Gluc POC Comment 2) [facility]2022-10-25 11:00:00 Test Item Value Reference Range Interpretation Comments Gluc POC Comment 2 (test code = Sent to lab Gluc POC Comment 2) [facility]2022-10-25 11:00:00 Test Item Value Reference Range Interpretation Comments Gluc POC Comment 2 (test code = Sent to lab Gluc POC Comment 2) [facility]2022-10-25 11:00:00 Test Item Value Reference Range Interpretation Comments Gluc POC Comment 2 (test code = Sent to lab Gluc POC Comment 2) [facility]2022-10-25 11:00:00 Test Item Value Reference Range Interpretation Comments Gluc POC Comment 2 (test code = Sent to lab Gluc POC Comment 2) [facility]2022-10-25 11:00:00 Test Item Value Reference Range Interpretation Comments Gluc POC Comment 2 (test code = Sent to lab Gluc POC Comment 2) [facility]2022-10-25 11:00:00 Test Item Value Reference Range Interpretation Comments Gluc POC Comment 2 (test code = Sent to lab Gluc POC Comment 2) [facility]2022-10-25 11:00:00 Test Item Value Reference Range Interpretation Comments Gluc POC Comment 2 (test code = Sent to lab Gluc POC Comment 2) [facility]2022-10-25 11:00:00 Test Item Value Reference Range Interpretation Comments Gluc POC Comment 2 (test code = Sent to lab Gluc POC Comment 2) [facility]2022-10-25 11:00:00 Test Item Value Reference Range Interpretation Comments Gluc POC Comment 2 (test code = Sent to lab Gluc POC Comment 2) [facility]2022-10-25 11:00:00 Test Item Value Reference Range Interpretation Comments Gluc POC Comment 2 (test code = Sent to lab Gluc POC Comment 2) [facility]2022-10-25 11:00:00 Test Item Value Reference Range Interpretation Comments Gluc POC Comment 2 (test code = Sent to lab Gluc POC Comment 2) [facility]2022-10-25 11:00:00 Test Item Value Reference Range Interpretation Comments Gluc POC Comment 2 (test code = Sent to lab Gluc POC Comment 2) [facility]2022-10-25 11:00:00 Test Item Value Reference Range Interpretation Comments Gluc POC Comment 2 (test code = Sent to lab Gluc POC Comment 2) [facility]2022-10-25 11:00:00 Test Item Value Reference Range Interpretation Comments Gluc POC Comment 2 (test code = Sent to lab Gluc POC Comment 2) [facility]2022-10-25 11:00:00 Test Item Value Reference Range Interpretation Comments Gluc POC Comment 2 (test code = Sent to lab Gluc POC Comment 2) [facility]2022-10-25 11:00:00 Test Item Value Reference Range Interpretation Comments Gluc POC Comment 2 (test code = Sent to lab Gluc POC Comment 2) [facility]2022-10-25 11:00:00 Test Item Value Reference Range Interpretation Comments Gluc POC Comment 2 (test code = Sent to lab Gluc POC Comment 2) [facility]2022-10-25 11:00:00 Test Item Value Reference Range Interpretation Comments Gluc POC Comment 2 (test code = Sent to lab Gluc POC Comment 2) [facility]2022-10-25 11:00:00 Test Item Value Reference Range Interpretation Comments Gluc POC Comment 2 (test code = Sent to lab Gluc POC Comment 2) [facility]2022-10-25 11:00:00 Test Item Value Reference Range Interpretation Comments Gluc POC Comment 2 (test code = Sent to lab Gluc POC Comment 2) [facility]2022-10-25 11:00:00 Test Item Value Reference Range Interpretation Comments Gluc POC Comment 2 (test code = Sent to lab Gluc POC Comment 2) [facility]2022-10-25 11:00:00 Test Item Value Reference Range Interpretation Comments Gluc POC Comment 2 (test code = Sent to lab Gluc POC Comment 2) [facility]2022-10-25 11:00:00 Test Item Value Reference Range Interpretation Comments Gluc POC Comment 2 (test code = Sent to lab Gluc POC Comment 2) [place] [id number] 11:00:00 Test Item Value Reference Range Interpretation Comments Gluc POC Comment 2 (test code = Sent to lab Gluc POC Comment 2) [facility]2022-10-25 11:00:00 Test Item Value Reference Range Interpretation Comments Gluc POC Comment 2 (test code = Sent to lab Gluc POC Comment 2) [facility]2022-10-25 11:00:00 Test Item Value Reference Range Interpretation Comments Gluc POC Comment 2 (test code = Sent to lab Gluc POC Comment 2) [facility]2022-10-25 11:00:00 Test Item Value Reference Range Interpretation Comments Gluc POC Comment 2 (test code = Sent to lab Gluc POC Comment 2) [facility]2022-10-25 11:00:00 Test Item Value Reference Range Interpretation Comments Gluc POC Comment 2 (test code = Sent to lab Gluc POC Comment 2) [facility]2022-10-25 11:00:00 Test Item Value Reference Range Interpretation Comments Gluc POC Comment 2 (test code = Sent to lab Gluc POC Comment 2) [facility]2022-10-25 11:00:00 Test Item Value Reference Range Interpretation Comments Gluc POC Comment 2 (test code = Sent to lab Gluc POC Comment 2) [facility]2022-10-25 11:00:00 Test Item Value Reference Range Interpretation Comments Gluc POC Comment 2 (test code = Sent to lab Gluc POC Comment 2) [facility]2022-10-25 11:00:00 Test Item Value Reference Range Interpretation Comments Gluc POC Comment 2 (test code = Sent to lab Gluc POC Comment 2) [facility]2022-10-25 11:00:00 Test Item Value Reference Range Interpretation Comments Gluc POC Comment 2 (test code = Sent to lab Gluc POC Comment 2) [facility]2022-10-25 11:00:00 Test Item Value Reference Range Interpretation Comments Gluc POC Comment 2 (test code = Sent to lab Gluc POC Comment 2) [facility]2022-10-25 11:00:00 Test Item Value Reference Range Interpretation Comments Gluc POC Comment 2 (test code = Sent to lab Gluc POC Comment 2) [facility]2022-10-25 11:00:00 Test Item Value Reference Range Interpretation Comments Gluc POC Comment 2 (test code = Sent to lab Gluc POC Comment 2) [facility]2022-10-25 11:00:00 Test Item Value Reference Range Interpretation Comments Gluc POC Comment 2 (test code = Sent to lab Gluc POC Comment 2) [facility]2022-10-25 11:00:00 Test Item Value Reference Range Interpretation Comments Gluc POC Comment 2 (test code = Sent to lab Gluc POC Comment 2) [facility]2022-10-25 11:00:00 Test Item Value Reference Range Interpretation Comments Gluc POC Comment 2 (test code = Sent to lab Gluc POC Comment 2) [facility]2022-10-25 11:00:00 Test Item Value Reference Range Interpretation Comments Gluc POC Comment 2 (test code = Sent to lab Gluc POC Comment 2) [facility]2022-10-25 11:00:00 Test Item Value Reference Range Interpretation Comments Gluc POC Comment 2 (test code = Sent to lab Gluc POC Comment 2) [facility]2022-10-25 11:00:00 Test Item Value Reference Range Interpretation Comments Gluc POC Comment 2 (test code = Sent to lab Gluc POC Comment 2) [facility]2022-10-25 11:00:00 Test Item Value Reference Range Interpretation Comments Gluc POC Comment 2 (test code = Sent to lab Gluc POC Comment 2) [facility]2022-10-25 11:00:00 Test Item Value Reference Range Interpretation Comments Gluc POC Comment 2 (test code = Sent to lab Gluc POC Comment 2) [facility]2022-10-25 11:00:00 Test Item Value Reference Range Interpretation Comments Gluc POC Comment 2 (test code = Sent to lab Gluc POC Comment 2) [facility]2022-10-25 11:00:00 Test Item Value Reference Range Interpretation Comments Gluc POC Comment 2 (test code = Sent to lab Gluc POC Comment 2) [facility]2022-10-25 11:00:00 Test Item Value Reference Range Interpretation Comments Gluc POC Comment 2 (test code = Sent to lab Gluc POC Comment 2) [facility]2022-10-25 11:00:00 Test Item Value Reference Range Interpretation Comments Gluc POC Comment 2 (test code = Sent to lab Gluc POC Comment 2) [place] [id number] 11:00:00 Test Item Value Reference Range Interpretation Comments Gluc POC Comment 2 (test code = Sent to lab Gluc POC Comment 2) [facility]2022-10-25 11:00:00 Test Item Value Reference Range Interpretation Comments Gluc POC Comment 2 (test code = Sent to lab Gluc POC Comment 2) [facility]2022-10-25 11:00:00 Test Item Value Reference Range Interpretation Comments Gluc POC Comment 2 (test code = Sent to lab Gluc POC Comment 2) [facility]2022-10-25 11:00:00 Test Item Value Reference Range Interpretation Comments Gluc POC Comment 2 (test code = Sent to lab Gluc POC Comment 2) [facility]2022-10-25 11:00:00 Test Item Value Reference Range Interpretation Comments Gluc POC Comment 2 (test code = Sent to lab Gluc POC Comment 2) [facility]2022-10-25 11:00:00 Test Item Value Reference Range Interpretation Comments Gluc POC Comment 2 (test code = Sent to lab Gluc POC Comment 2) [facility]2022-10-25 11:00:00 Test Item Value Reference Range Interpretation Comments Gluc POC Comment 2 (test code = Sent to lab Gluc POC Comment 2) [facility]2022-10-25 11:00:00 Test Item Value Reference Range Interpretation Comments Gluc POC Comment 2 (test code = Sent to lab Gluc POC Comment 2) [facility]2022-10-25 11:00:00 Test Item Value Reference Range Interpretation Comments Gluc POC Comment 2 (test code = Sent to lab Gluc POC Comment 2) [facility]2022-10-25 11:00:00 Test Item Value Reference Range Interpretation Comments Gluc POC Comment 2 (test code = Sent to lab Gluc POC Comment 2) [facility]2022-10-25 11:00:00 Test Item Value Reference Range Interpretation Comments Gluc POC Comment 2 (test code = Sent to lab Gluc POC Comment 2) [facility]2022-10-25 11:00:00 Test Item Value Reference Range Interpretation Comments Gluc POC Comment 2 (test code = Sent to lab Gluc POC Comment 2) [facility]2022-10-25 11:00:00 Test Item Value Reference Range Interpretation Comments Gluc POC Comment 2 (test code = Sent to lab Gluc POC Comment 2) [facility]2022-10-25 11:00:00 Test Item Value Reference Range Interpretation Comments Gluc POC Comment 2 (test code = Sent to lab Gluc POC Comment 2) [facility]2022-10-25 11:00:00 Test Item Value Reference Range Interpretation Comments Gluc POC Comment 2 (test code = Sent to lab Gluc POC Comment 2) [facility]2022-10-25 11:00:00 Test Item Value Reference Range Interpretation Comments Gluc POC Comment 2 (test code = Sent to lab Gluc POC Comment 2) [place] [id number] 11:00:00 Test Item Value Reference Range Interpretation Comments Gluc POC Comment 2 (test code = Sent to lab Gluc POC Comment 2) [facility]2022-10-25 11:00:00 Test Item Value Reference Range Interpretation Comments Gluc POC Comment 2 (test code = Sent to lab Gluc POC Comment 2) [place] [id number] 11:00:00 Test Item Value Reference Range Interpretation Comments Gluc POC Comment 2 (test code = Sent to lab Gluc POC Comment 2) [place] [id number] 11:00:00 Test Item Value Reference Range Interpretation Comments Gluc POC Comment 2 (test code = Sent to lab Gluc POC Comment 2) [facility]2022-10-25 11:00:00 Test Item Value Reference Range Interpretation Comments Gluc POC Comment 2 (test code = Sent to lab Gluc POC Comment 2) [place] [id number] 11:00:00 Test Item Value Reference Range Interpretation Comments Gluc POC Comment 2 (test code = Sent to lab Gluc POC Comment 2) [facility]2022-10-25 11:00:00 Test Item Value Reference Range Interpretation Comments Gluc POC Comment 2 (test code = Sent to lab Gluc POC Comment 2) [place] [id number] 11:00:00 Test Item Value Reference Range Interpretation Comments Gluc POC Comment 2 (test code = Sent to lab Gluc POC Comment 2) [place] 330022-10-24 18:45:51 Test Item Value Reference Range Interpretation [...] 1. No abdominal abnormalities.2. Hardware as above. [facility]KtauqeuKBXRSQ3866-13-41 18:45:51 Test Item Value Reference Range Interpretation [...] 1. No abdominal abnormalities.2. Hardware as above. [facility]wayQnjjkugTRLCSK3887-80-93 18:45:51 Test Item Value Reference Range Interpretation [...] 1. No abdominal abnormalities.2. Hardware as above. [facility]wayTucjrqiAHBDHM0880-94-22 18:45:51 Test Item Value Reference Range Interpretation [...] 1. No abdominal abnormalities.2. Hardware as above. [facility]wayKdzwhbaBWXZBN3833-83-43 18:45:51 Test Item Value Reference Range Interpretation [...] 1. No abdominal abnormalities.2. Hardware as above. [facility] ParkwayMizoewoSZUFNW1306-31-13 18:45:51 Test Item Value Reference Range Interpretation [...] 1. No abdominal abnormalities.2. [facility] above. [facility]YguwxltHROBLJ1745-96-42 18:45:51 Test Item Value Reference Range Interpretation [...] 1. No abdominal abnormalities.2. Hardware as above. [facility]oVefmmecWPYUOZ9113-46-84 18:45:51 Test Item Value Reference Range Interpretation [...] 1. No abdominal abnormalities.2. Hardware as above. [facility]oAswtvclOKKLRT1092-00-42 18:45:51 Test Item Value Reference Range Interpretation [...] 1. No abdominal abnormalities.2. Hardware as above. [facility]oDraovgiWIYMSY9477-89-08 18:45:51 Test Item Value Reference Range Interpretation [...] 1. No abdominal abnormalities.2. Hardware as above. [facility]oPzggovvFDBSIU7337-15-81 18:45:51 Test Item Value Reference Range Interpretation [...] 1. No abdominal abnormalities.2. Hardware as above. [facility] ParkwayZrdoeuaVJANCU4869-52-79 18:45:51 Test Item Value Reference Range Interpretation [...] 1. No abdominal abnormalities.2. Hardware as above. [facility]wayTlbwrprCAOQIY0130-31-21 18:45:51 Test Item Value Reference Range Interpretation [...] 1. No abdominal abnormalities.2. Hardware as above. [facility]wayRqowpuuGYCQYH9205-76-18 18:45:51 Test Item Value Reference Range Interpretation [...] 1. No abdominal abnormalities.2. Hardware as above. [facility] ParkwayDxhlkfyOHCGKK5940-36-37 18:45:51 Test Item Value Reference Range Interpretation [...] 1. No abdominal abnormalities.2. Hardware as above. [facility] ParkwayNetuccyPTRHPK9379-04-43 18:45:51 Test Item Value Reference Range Interpretation [...] 1. No abdominal abnormalities.2. Hardware as above. [facility] ParkwayLsxizzjMCMOUL3636-46-29 18:45:51 Test Item Value Reference Range Interpretation [...] 1. No abdominal abnormalities.2. Hardware as above. [facility] ParkwayGrfirwdCCOLED4777-91-47 18:45:51 Test Item Value Reference Range Interpretation [...] 1. No abdominal abnormalities.2. Hardware as above. [facility]wayBndlgbfJFHDMI3583-86-51 18:45:51 Test Item Value Reference Range Interpretation [...] 1. No abdominal abnormalities.2. Hardware as above. [facility] ParkwayVqngmbmKMYRVJ9778-59-04 18:45:51 Test Item Value Reference Range Interpretation [...] 1. No abdominal abnormalities.2. Hardware as above. [facility] ParkwayLyxlhsfBRUMBN6753-84-30 18:45:51 Test Item Value Reference Range Interpretation [...] 1. No abdominal abnormalities.2. Hardware as above. [facility] ParkwayUmkqdyzOQCQMH9053-90-57 18:45:51 Test Item Value Reference Range Interpretation [...] 1. No abdominal abnormalities.2. Hardware as above. [facility] CenterJarbvxbQIHGWN6195-68-42 18:45:51 Test Item Value Reference Range Interpretation [...] 1. No abdominal abnormalities.2. Hardware as above. [facility]oOwzrkozTDANDW9431-60-12 18:45:51 Test Item Value Reference Range Interpretation [...] 1. No abdominal abnormalities.2. Hardware as above. [facility]oFjlzudiHAUUEZ5016-22-95 18:45:51 Test Item Value Reference Range Interpretation [...] 1. No abdominal abnormalities.2. Hardware as above. [facility]wayOxcfqedBIZXJD2236-93-93 18:45:51 Test Item Value Reference Range Interpretation [...] 1. No abdominal abnormalities.2. Hardware as above. [facility] ParkwayRqnabumKSTWPG6102-60-48 18:45:51 Test Item Value Reference Range Interpretation [...] 1. No abdominal abnormalities.2. Hardware as above. [facility]oLonriwgDYQCXI9949-32-09 18:45:51 Test Item Value Reference Range Interpretation [...] 1. No abdominal abnormalities.2. Hardware as above. [facility]oDwedwfwIEKYLL5795-88-34 18:45:51 Test Item Value Reference Range Interpretation [...] 1. No abdominal abnormalities.2. Hardware as above. [facility] ParkwayQbaopwyYXGKUK4751-52-98 18:45:51 Test Item Value Reference Range Interpretation [...] 1. No abdominal abnormalities.2. Hardware as above. [facility]oEzgsvcjGPVUOG7355-67-63 18:45:51 Test Item Value Reference Range Interpretation [...] 1. No abdominal abnormalities.2. Hardware as above. [facility] ParkwayBhfoekxBPWYQW6665-09-73 18:45:51 Test Item Value Reference Range Interpretation [...] 1. No abdominal abnormalities.2. Hardware as above. [facility]wayPgutnvdGKLDJW1496-46-80 18:45:51 Test Item Value Reference Range Interpretation [...] 1. No abdominal abnormalities.2. Hardware as above. [facility]wayPsggrvpOVHQTQ5042-15-34 18:45:51 Test Item Value Reference Range Interpretation [...] 1. No abdominal abnormalities.2. Hardware as above. [facility]oFibyworHBLGRM9428-16-05 18:45:51 Test Item Value Reference Range Interpretation [...] 1. No abdominal abnormalities.2. Hardware as above. [facility]wayPhmhusgLXVWTS4448-50-72 18:45:51 Test Item Value Reference Range Interpretation [...] 1. No abdominal abnormalities.2. Hardware as above. [facility] ParkwayLzqwequKDQSLY0541-30-06 18:45:51 Test Item Value Reference Range Interpretation [...] 1. No abdominal abnormalities.2. Hardware as above. [facility] CenterFgurllsIADBHA4961-65-43 18:45:51 Test Item Value Reference Range Interpretation [...] 1. No abdominal abnormalities.2. Hardware as above. [facility]oDzabfziYOFCPW4748-82-83 18:45:51 Test Item Value Reference Range Interpretation [...] 1. No abdominal abnormalities.2. Hardware as above. [facility]oOdxalkhTBZSSP4984-59-43 18:45:51 Test Item Value Reference Range Interpretation [...] 1. No abdominal abnormalities.2. Hardware as above. [facility]wayMnkjsryBCGLTM6616-23-79 18:45:51 Test Item Value Reference Range Interpretation [...] 1. No abdominal abnormalities.2. Hardware as above. [facility] ParkwayNfmyuydLDZHHB6465-09-01 18:45:51 Test Item Value Reference Range Interpretation [...] 1. No abdominal abnormalities.2. Hardware as above. [facility]oHoxjwaqBWBHWS4564-95-96 18:45:51 Test Item Value Reference Range Interpretation [...] 1. No abdominal abnormalities.2. Hardware as above. [facility] ParkwayQoeqeoeTHGKQN8564-54-02 18:45:51 Test Item Value Reference Range Interpretation [...] 1. No abdominal abnormalities.2. Hardware as above. [facility] ParkwayPfahsxiJTOQCT4699-52-60 18:45:51 Test Item Value Reference Range Interpretation [...] 1. No abdominal abnormalities.2. Hardware as above. [facility]oZxbmobwKGUCCR3572-08-75 18:45:51 Test Item Value Reference Range Interpretation [...] 1. No abdominal abnormalities.2. Hardware as above. [facility] ParkwayJrrmfytAWADMY6911-50-97 18:45:51 Test Item Value Reference Range Interpretation [...] 1. No abdominal abnormalities.2. Hardware as above. [facility] ParkwayMnjjwuqGRTNRH7693-06-04 18:45:51 Test Item Value Reference Range Interpretation [...] 1. No abdominal abnormalities.2. Hardware as above. [facility] ParkwaySnsugvyOMVPBS3138-74-38 18:45:51 Test Item Value Reference Range Interpretation [...] 1. No abdominal abnormalities.2. Hardware as above. [facility] ParkwayWesairaEAWYWX0451-91-75 18:45:51 Test Item Value Reference Range Interpretation [...] 1. No abdominal abnormalities.2. Hardware as above. [facility] ParkwayVztupkuWRARKU5497-67-30 18:45:51 Test Item Value Reference Range Interpretation [...] 1. No abdominal abnormalities.2. Hardware as above. [facility] ParkwayJtjysxgKLGLUQ2393-25-78 18:45:51 Test Item Value Reference Range Interpretation [...] 1. No abdominal abnormalities.2. Hardware as above. [facility] CenterQcmrjtiILCJMZ6608-40-11 18:45:51 Test Item Value Reference Range Interpretation [...] 1. No abdominal abnormalities.2. Hardware as above. [facility]oBrbqkycKAAEQC1386-43-82 18:45:51 Test Item Value Reference Range Interpretation [...] 1. No abdominal abnormalities.2. Hardware as above. [facility]oHzkdpjyUNILXV6089-51-30 18:45:51 Test Item Value Reference Range Interpretation [...] 1. No abdominal abnormalities.2. Hardware as above. [facility]oYatmlekQBCPKO5657-10-94 18:45:51 Test Item Value Reference Range Interpretation [...] 1. No abdominal abnormalities.2. Hardware as above. [facility]oJylbcgjRCVJQL2207-91-95 18:45:51 Test Item Value Reference Range Interpretation [...] 1. No abdominal abnormalities.2. Hardware as above. [facility]oXrflxliQXWLLB6846-11-82 18:45:51 Test Item Value Reference Range Interpretation [...] 1. No abdominal abnormalities.2. Hardware as above. [facility]wayOdvjqxsTZPNXF7911-83-00 18:45:51 Test Item Value Reference Range Interpretation [...] 1. No abdominal abnormalities.2. Hardware as above. [facility] ParkwaySdsasboLIBGUM9214-25-89 18:45:51 Test Item Value Reference Range Interpretation [...] 1. No abdominal abnormalities.2. Hardware as above. [facility]oDzxpzqfENMKTY8800-68-93 18:45:51 Test Item Value Reference Range Interpretation [...] 1. No abdominal abnormalities.2. Hardware as above. [facility] ParkwayQiowmkmWZTFWG6433-92-87 18:45:51 Test Item Value Reference Range Interpretation [...] 1. No abdominal abnormalities.2. Hardware as above. [facility] ParkwayUqtfsiwOMSCCZ2790-44-00 18:45:51 Test Item Value Reference Range Interpretation [...] 1. No abdominal abnormalities.2. Hardware as above. [facility] ParkwayIaxxvszYSAESX6341-82-15 18:45:51 Test Item Value Reference Range Interpretation [...] 1. No abdominal abnormalities.2. Hardware as above. [facility] ParkwayVoyrshyMBHQCG7964-60-37 18:45:51 Test Item Value Reference Range Interpretation [...] 1. No abdominal abnormalities.2. Hardware as above. [facility] ParkwayNllsqprGYYASK4938-81-23 18:45:51 Test Item Value Reference Range Interpretation [...] 1. No abdominal abnormalities.2. Hardware as above. [facility] ParkwayIwuqnhrMASAMB0167-81-75 18:45:51 Test Item Value Reference Range Interpretation [...] 1. No abdominal abnormalities.2. Hardware as above. [facility] ParkwayQrpfcaoFWOTVJ3232-20-62 18:45:51 Test Item Value Reference Range Interpretation [...] 1. No abdominal abnormalities.2. Hardware as above. [facility] ParkwayJxscihyQARWJK0951-41-99 18:45:51 Test Item Value Reference Range Interpretation [...] 1. No abdominal abnormalities.2. Hardware as above. [facility] CenterKeatgdxUMDOZZ0898-04-59 18:45:51 Test Item Value Reference Range Interpretation [...] 1. No abdominal abnormalities.2. Hardware as above. [facility]oRyfgxnnFWZWQJ8135-84-40 18:45:51 Test Item Value Reference Range Interpretation [...] 1. No abdominal abnormalities.2. Hardware as above. [facility]oBfwfaknKUYFJD4735-78-33 18:45:51 Test Item Value Reference Range Interpretation [...] 1. No abdominal abnormalities.2. Hardware as above. [facility]oBcudxzxQEJZNP3336-37-13 18:45:51 Test Item Value Reference Range Interpretation [...] 1. No abdominal abnormalities.2. Hardware as above. [facility]oEozzjuvHRGLVG0670-73-21 18:45:51 Test Item Value Reference Range Interpretation [...] 1. No abdominal abnormalities.2. Hardware as above. [facility]oLocxdpmXSYFPO9557-08-17 18:45:51 Test Item Value Reference Range Interpretation [...] 1. No abdominal abnormalities.2. Hardware as above. [facility]oHlxhqfmZXMXAX3913-09-57 18:45:51 Test Item Value Reference Range Interpretation [...] 1. No abdominal abnormalities.2. Hardware as above. [facility] ParkwayIompztnSPROYV4891-41-86 18:45:51 Test Item Value Reference Range Interpretation [...] 1. No abdominal abnormalities.2. Hardware as above. [facility]oCvbfozlQCIDXU1330-38-12 18:45:51 Test Item Value Reference Range Interpretation [...] 1. No abdominal abnormalities.2. Hardware as above. [facility] ParkwayNfvzwydDWELMA3225-85-90 18:45:51 Test Item Value Reference Range Interpretation [...] 1. No abdominal abnormalities.2. Hardware as above. [facility] ParkwayBqcvxwsVZXIYL5903-96-22 18:45:51 Test Item Value Reference Range Interpretation [...] 1. No abdominal abnormalities.2. Hardware as above. [facility]oAsvbbmuDMJUOI1032-82-90 18:45:51 Test Item Value Reference Range Interpretation [...] 1. No abdominal abnormalities.2. Hardware as above. [facility]oBjserryECENPF9222-95-01 18:45:51 Test Item Value Reference Range Interpretation [...] 1. No abdominal abnormalities.2. Hardware as above. [facility] ParkwayAyuycyiCYKBTZ6005-70-74 18:45:51 Test Item Value Reference Range Interpretation [...] 1. No abdominal abnormalities.2. Hardware as above. [facility]wayPpuwlllSZTYWD8965-21-55 18:45:51 Test Item Value Reference Range Interpretation [...] 1. No abdominal abnormalities.2. Hardware as above. [facility] CenterGymsoiiMXGZRU8078-97-85 18:45:51 Test Item Value Reference Range Interpretation [...] 1. No abdominal abnormalities.2. Hardware as above. [facility]oFjvcarqFUTHPI1786-57-52 18:45:51 Test Item Value Reference Range Interpretation [...] 1. No abdominal abnormalities.2. Hardware as above. [facility]oCrovmunXNALCE4572-36-39 18:45:51 Test Item Value Reference Range Interpretation [...] 1. No abdominal abnormalities.2. Hardware as above. [facility]wayKrlzfmqLCFYGW1244-59-31 18:45:51 Test Item Value Reference Range Interpretation [...] 1. No abdominal abnormalities.2. Hardware as above. [facility] ParkwayXguuapqMWTUPD5743-08-01 18:45:51 Test Item Value Reference Range Interpretation [...] 1. No abdominal abnormalities.2. Hardware as above. [facility] ParkwayPomgawuUHIKEI1865-77-29 18:45:51 Test Item Value Reference Range Interpretation [...] 1. No abdominal abnormalities.2. Hardware as above. [facility] ParkwayYlbtglmJHEKVE3661-08-10 18:45:51 Test Item Value Reference Range Interpretation [...] 1. No abdominal abnormalities.2. Hardware as above. [facility] ParkwayFjmdlxxSNAGMQ9349-27-29 18:45:51 Test Item Value Reference Range Interpretation [...] 1. No abdominal abnormalities.2. Hardware as above. [facility] ParkwayRkyixeqZDJKWZ5086-16-08 18:45:51 Test Item Value Reference Range Interpretation [...] 1. No abdominal abnormalities.2. Hardware as above. [place] [address]-10-24 16:44:00 Test Item Value Reference Range Interpretation Comments POC V Source (test code = POC V Source) BRUNA [place] 223672-10-24 16:44:00 Test Item Value Reference Range Interpretation Comments POC V Temp (test code = POC V Temp) 37.0 [place] 223672-10-24 16:44:00 Test Item Value Reference Range Interpretation Comments POC V Ion Ca (test code = POC V Ion Ca) 1.20 1.05-1.25 [place] [address]-10-24 16:44:00 Test Item Value Reference Range Interpretation Comments POC V K (test code = POC V K) 4.0 3.5-5.1 [place] [address]-10-24 16:44:00 Test Item Value Reference Range Interpretation Comments POC V Na (test code = POC V Na) 130 135-145 [place] 223672-10-24 16:44:00 Test Item Value Reference Range Interpretation Comments POC V LA (test code = POC V LA) 1.1 0.5-2.2 [place] [address]-10-24 16:44:00 Test Item Value Reference Range Interpretation Comments POC V pH (test code = POC V pH) 7.41 1 7.28-7.42 [place] [address]-10-24 16:44:00 Test Item Value Reference Range Interpretation Comments POC V PCO2 (test code = POC V PCO2) 40 38-52 [place] 223672-10-24 16:44:00 Test Item Value Reference Range Interpretation Comments POC V PO2 (test code = POC V PO2) 41 20-49 [facility] CenterUrnvykwMTXUPJNEW1611-49-42 16:44:00 Test Item Value Reference Range Interpretation Comments POC V HCO3 (test code = POC V HCO3) 25 22-26 [facility] CenterCzkjnleKUETIDGEM7704-73-86 16:44:00 Test Item Value Reference Range Interpretation Comments POC V BE (test code = POC V BE) 1 -2-2 [facility] CenterMqueruyCBSRQCPYA7963-67-58 16:44:00 Test Item Value Reference Range Interpretation Comments POC V O2 Sat (calc) (test code = POC V 76.8 40.0-70.0 O2 Sat (calc)) [facility] CenterMqqnfbjSJIALAHLB6029-37-21 16:44:00 Test Item Value Reference Range Interpretation Comments POC V Hgb Tot (test code = POC V Hgb 9.6 12.0-16.0 Tot) [facility] CenterMxrsuxmHYGRWSMCI5899-54-64 16:44:00 Test Item Value Reference Range Interpretation Comments POC V Glu (test code = POC V Glu) 185 70-99 [facility] CenterJocoakfWLTUGQSBI0000-77-95 16:44:00 Test Item Value Reference Range Interpretation Comments POC V Hct (calc) (test code = POC V Hct 29.0 36.0-48.0 (calc)) [facility] CenterIkdjdepVVHKUTCCD0403-76-42 16:44:00 Test Item Value Reference Range Interpretation Comments POC V Cl (test code = POC V Cl) 100 95-109 [facility] CenterQnulaofJAIEMANTR9716-43-17 16:44:00 Test Item Value Reference Range Interpretation Comments POC V Ca Ion at pH 7.4 (test code = POC 1.20 1.05-1.25 V Ca Ion at pH 7.4) [facility] CenterYorxraxHYHBUEZVX5496-01-93 16:44:00 Test Item Value Reference Range Interpretation Comments POC V Source (test code = POC V Source) [facility] CenterRhdgjzhACQNBGDMY4893-77-48 16:44:00 Test Item Value Reference Range Interpretation Comments POC V Temp (test code = POC V Temp) 37.0 [facility] CenterUzjvwmfPYMAYFDJB9245-92-31 16:44:00 Test Item Value Reference Range Interpretation Comments POC V Ion Ca (test code = POC V Ion Ca) 1.20 1.05-1.25 [facility] CenterEaajplvBEFGFAGHX4624-40-46 16:44:00 Test Item Value Reference Range Interpretation Comments POC V K (test code = POC V K) 4.0 3.5-5.1 [facility] CenterOhnhjvrHCJMXJNPF2768-18-60 16:44:00 Test Item Value Reference Range Interpretation Comments POC V Na (test code = POC V Na) 130 135-145 [facility] CenterQwqhqmeENUJPWEMB5198-90-13 16:44:00 Test Item Value Reference Range Interpretation Comments POC V LA (test code = POC V LA) 1.1 0.5-2.2 [facility] CenterVanybspGWEUYPEMF0818-46-02 16:44:00 Test Item Value Reference Range Interpretation Comments POC V pH (test code = POC V pH) 7.41 1 7.28-7.42 [facility] CenterUqrxwxeMHILJDXIE2173-62-94 16:44:00 Test Item Value Reference Range Interpretation Comments POC V PCO2 (test code = POC V PCO2) 40 38-52 [facility] CenterIealunbQGJXLYLYB2010-51-62 16:44:00 Test Item Value Reference Range Interpretation Comments POC V PO2 (test code = POC V PO2) 41 20-49 [facility] CenterXimhfnsTXWSUKWKZ0536-56-21 16:44:00 Test Item Value Reference Range Interpretation Comments POC V HCO3 (test code = POC V HCO3) 25 22-26 [facility] CenterDevhudyFTEUDAMAL3352-16-78 16:44:00 Test Item Value Reference Range Interpretation Comments POC V BE (test code = POC V BE) 1 -2-2 [facility] CenterKtomepaNOJVILFQN1308-94-01 16:44:00 Test Item Value Reference Range Interpretation Comments POC V O2 Sat (calc) (test code = POC V 76.8 40.0-70.0 O2 Sat (calc)) [facility] CenterMyjrgqjTGUZCDIWJ8240-92-42 16:44:00 Test Item Value Reference Range Interpretation Comments POC V Hgb Tot (test code = POC V Hgb 9.6 12.0-16.0 Tot) [facility] CenterRktltwvLPVXNMGCD1510-57-96 16:44:00 Test Item Value Reference Range Interpretation Comments POC V Glu (test code = POC V Glu) 185 70-99 [facility] CenterBkwkwvcEWUZPLUYQ2759-63-99 16:44:00 Test Item Value Reference Range Interpretation Comments POC V Hct (calc) (test code = POC V Hct 29.0 36.0-48.0 (calc)) [facility] CenterNxeohimZKLAKYZOX7774-13-96 16:44:00 Test Item Value Reference Range Interpretation Comments POC V Cl (test code = POC V Cl) 100 95-109 [place] 223672-10-24 16:44:00 Test Item Value Reference Range Interpretation Comments POC V Ca Ion at pH 7.4 (test code = POC 1.20 1.05-1.25 V Ca Ion at pH 7.4) [facility]MkqdbreGWQEGJJBJ3986-87-63 16:44:00 Test Item Value Reference Range Interpretation Comments POC V Source (test code = POC V Source) [facility] CenterQtgbgviRUHIVBJPN6827-78-09 16:44:00 Test Item Value Reference Range Interpretation Comments POC V Temp (test code = POC V Temp) 37.0 [place] [address]-10-24 16:44:00 Test Item Value Reference Range Interpretation Comments POC V Ion Ca (test code = POC V Ion Ca) 1.20 1.05-1.25 [place] 223672-10-24 16:44:00 Test Item Value Reference Range Interpretation Comments POC V K (test code = POC V K) 4.0 3.5-5.1 [place] [address]-10-24 16:44:00 Test Item Value Reference Range Interpretation Comments POC V Na (test code = POC V Na) 130 135-145 [facility] CenterAuohaakJOSJHQNJJ8473-35-04 16:44:00 Test Item Value Reference Range Interpretation Comments POC V LA (test code = POC V LA) 1.1 0.5-2.2 [place] [address]-10-24 16:44:00 Test Item Value Reference Range Interpretation Comments POC V pH (test code = POC V pH) 7.41 1 7.28-7.42 [place] [address]-10-24 16:44:00 Test Item Value Reference Range Interpretation Comments POC V PCO2 (test code = POC V PCO2) 40 38-52 [place] [address]-10-24 16:44:00 Test Item Value Reference Range Interpretation Comments POC V PO2 (test code = POC V PO2) 41 20-49 [place] [address]-10-24 16:44:00 Test Item Value Reference Range Interpretation Comments POC V HCO3 (test code = POC V HCO3) 25 22-26 [facility] CenterYurfklxCDDEMDACQ4750-76-23 16:44:00 Test Item Value Reference Range Interpretation Comments POC V BE (test code = POC V BE) 1 -2-2 [facility] CenterXnyakcyAFTZBVDDG8647-56-57 16:44:00 Test Item Value Reference Range Interpretation Comments POC V O2 Sat (calc) (test code = POC V 76.8 40.0-70.0 O2 Sat (calc)) [facility] CenterNtekvsiTTSOIGZJR6587-21-00 16:44:00 Test Item Value Reference Range Interpretation Comments POC V Hgb Tot (test code = POC V Hgb 9.6 12.0-16.0 Tot) [facility] CenterXcgbagmNEJUCYSIL7482-58-47 16:44:00 Test Item Value Reference Range Interpretation Comments POC V Glu (test code = POC V Glu) 185 70-99 [facility] CenterEvgehgzOEJBEFVDF2836-69-63 16:44:00 Test Item Value Reference Range Interpretation Comments POC V Hct (calc) (test code = POC V Hct 29.0 36.0-48.0 (calc)) [facility] CenterNlksbhnANJFKLUZS8314-47-44 16:44:00 Test Item Value Reference Range Interpretation Comments POC V Cl (test code = POC V Cl) 100 95-109 [facility] CenterWygckbwGGQIBXFMB6538-29-52 16:44:00 Test Item Value Reference Range Interpretation Comments POC V Ca Ion at pH 7.4 (test code = POC 1.20 1.05-1.25 V Ca Ion at pH 7.4) [facility] CenterKlpmbnnFBSSOMBJU0854-61-46 16:44:00 Test Item Value Reference Range Interpretation Comments POC V Source (test code = POC V Source) [facility] CenterSqrfoovUNVUZAUXL4706-26-67 16:44:00 Test Item Value Reference Range Interpretation Comments POC V Temp (test code = POC V Temp) 37.0 [facility] CenterHqehdlcVNKTTHHTB2648-18-50 16:44:00 Test Item Value Reference Range Interpretation Comments POC V Ion Ca (test code = POC V Ion Ca) 1.20 1.05-1.25 [facility] CenterXrdnnfsNNZHKBSIY6053-42-86 16:44:00 Test Item Value Reference Range Interpretation Comments POC V K (test code = POC V K) 4.0 3.5-5.1 [facility] CenterRaiqkxuVBYKKNIPN5486-44-60 16:44:00 Test Item Value Reference Range Interpretation Comments POC V Source (test code = POC V Source) [facility]2022-10-24 16:44:00 Test Item Value Reference Range Interpretation Comments POC V Temp (test code = POC V Temp) 37.0 [facility] CenterXelhlkvFIUKDNVDK5933-25-95 16:44:00 Test Item Value Reference Range Interpretation Comments POC V Ion Ca (test code = POC V Ion Ca) 1.20 1.05-1.25 [facility] CenterNiggntkIUXOXPVAA0745-44-81 16:44:00 Test Item Value Reference Range Interpretation Comments POC V K (test code = POC V K) 4.0 3.5-5.1 [facility] CenterQoanygvNGGTQZVZM2544-28-09 16:44:00 Test Item Value Reference Range Interpretation Comments POC V Na (test code = POC V Na) 130 135-145 [facility] CenterLgmzimzOFDXKXTUS5226-47-73 16:44:00 Test Item Value Reference Range Interpretation Comments POC V Source (test code = POC V Source) [facility]2022-10-24 16:44:00 Test Item Value Reference Range Interpretation Comments POC V Temp (test code = POC V Temp) 37.0 [facility] CenterDforttkTOUKJVDVN3984-14-09 16:44:00 Test Item Value Reference Range Interpretation Comments POC V Ion Ca (test code = POC V Ion Ca) 1.20 1.05-1.25 [facility] CenterSqciqhzRFABRBIHT1133-23-34 16:44:00 Test Item Value Reference Range Interpretation Comments POC V K (test code = POC V K) 4.0 3.5-5.1 [facility] CenterGarjcwqPOLTMUTZK8546-49-15 16:44:00 Test Item Value Reference Range Interpretation Comments POC V Na (test code = POC V Na) 130 135-145 [facility] CenterVvngwxwAMQFHVKIF3465-53-49 16:44:00 Test Item Value Reference Range Interpretation Comments POC V LA (test code = POC V LA) 1.1 0.5-2.2 [facility] CenterOykezgtDDGUNCGRN3280-24-33 16:44:00 Test Item Value Reference Range Interpretation Comments POC V pH (test code = POC V pH) 7.41 1 7.28-7.42 [facility] CenterBayqjesEIGTRGKSW7427-64-28 16:44:00 Test Item Value Reference Range Interpretation Comments POC V PCO2 (test code = POC V PCO2) 40 38-52 [facility] CenterKrpqlnsXIJMQHPWT1892-47-57 16:44:00 Test Item Value Reference Range Interpretation Comments POC V LA (test code = POC V LA) 1.1 0.5-2.2 [facility] CenterKgyuapeXWRGYXVLV0928-87-20 16:44:00 Test Item Value Reference Range Interpretation Comments POC V PO2 (test code = POC V PO2) 41 20-49 [facility] CenterOyqekjcLAJFAPFEP3524-58-76 16:44:00 Test Item Value Reference Range Interpretation Comments POC V HCO3 (test code = POC V HCO3) 25 22-26 [facility] CenterEboeaclHPZRKGPTI3794-81-45 16:44:00 Test Item Value Reference Range Interpretation Comments POC V BE (test code = POC V BE) 1 -2-2 [facility] CenterQzyfscrYPJRZHYIE8239-71-94 16:44:00 Test Item Value Reference Range Interpretation Comments POC V O2 Sat (calc) (test code = POC V 76.8 40.0-70.0 O2 Sat (calc)) [facility] CenterXwtaahiOAGDUAPZE2221-67-44 16:44:00 Test Item Value Reference Range Interpretation Comments POC V Hgb Tot (test code = POC V Hgb 9.6 12.0-16.0 Tot) [facility] CenterErzxcesJICHCVUZS7243-96-89 16:44:00 Test Item Value Reference Range Interpretation Comments POC V Glu (test code = POC V Glu) 185 70-99 [facility] CenterNwwhdjvOVMQPAYXF5823-37-01 16:44:00 Test Item Value Reference Range Interpretation Comments POC V Hct (calc) (test code = POC V Hct 29.0 36.0-48.0 (calc)) [facility] CenterLrurxrpRKZZPRWRF2517-26-41 16:44:00 Test Item Value Reference Range Interpretation Comments POC V Cl (test code = POC V Cl) 100 95-109 [place] 223672-10-24 16:44:00 Test Item Value Reference Range Interpretation Comments POC V Ca Ion at pH 7.4 (test code = POC 1.20 1.05-1.25 V Ca Ion at pH 7.4) [facility] CenterCmacqmuNJANZARCL6584-06-12 16:44:00 Test Item Value Reference Range Interpretation Comments POC V pH (test code = POC V pH) 7.41 1 7.28-7.42 [facility] CenterGndcbwqFQDTBIAHJ5453-78-63 16:44:00 Test Item Value Reference Range Interpretation Comments POC V Na (test code = POC V Na) 130 135-145 [facility] CenterGbmorhaRMRUXYOJY6518-72-26 16:44:00 Test Item Value Reference Range Interpretation Comments POC V PCO2 (test code = POC V PCO2) 40 38-52 [facility] CenterNjovpdvOGLWERQLO6282-24-54 16:44:00 Test Item Value Reference Range Interpretation Comments POC V PO2 (test code = POC V PO2) 41 20-49 [facility] CenterPybxgqbMIORKYEXZ9434-02-51 16:44:00 Test Item Value Reference Range Interpretation Comments POC V HCO3 (test code = POC V HCO3) 25 22-26 [facility] CenterYldwchqIRKGCMKHV4206-22-90 16:44:00 Test Item Value Reference Range Interpretation Comments POC V BE (test code = POC V BE) 1 -2-2 [facility] CenterRatqyffCXYDBBTGM0470-05-68 16:44:00 Test Item Value Reference Range Interpretation Comments POC V O2 Sat (calc) (test code = POC V 76.8 40.0-70.0 O2 Sat (calc)) [facility] CenterPcmrwufKYOUXEBUX3449-15-13 16:44:00 Test Item Value Reference Range Interpretation Comments POC V Hgb Tot (test code = POC V Hgb 9.6 12.0-16.0 Tot) [facility] CenterNftgcztJEOZUARLT7948-72-61 16:44:00 Test Item Value Reference Range Interpretation Comments POC V Glu (test code = POC V Glu) 185 70-99 [facility] CenterLlgzihvLDOFWTTYO1484-17-92 16:44:00 Test Item Value Reference Range Interpretation Comments POC V Hct (calc) (test code = POC V Hct 29.0 36.0-48.0 (calc)) [facility] CenterYhrgsdmFDONLIKCI7999-96-36 16:44:00 Test Item Value Reference Range Interpretation Comments POC V Cl (test code = POC V Cl) 100 95-109 [facility] CenterPjasvuuXEFDZNNFO1641-29-98 16:44:00 Test Item Value Reference Range Interpretation Comments POC V Ca Ion at pH 7.4 (test code = POC 1.20 1.05-1.25 V Ca Ion at pH 7.4) [facility] CenterJdekxmyFNVICKBWX6781-98-37 16:44:00 Test Item Value Reference Range Interpretation Comments POC V LA (test code = POC V LA) 1.1 0.5-2.2 [facility] CenterNkyngrlALMWJFUQG0845-88-41 16:44:00 Test Item Value Reference Range Interpretation Comments POC V pH (test code = POC V pH) 7.41 1 7.28-7.42 [place] [address]-10-24 16:44:00 Test Item Value Reference Range Interpretation Comments POC V PCO2 (test code = POC V PCO2) 40 38-52 [facility] CenterTiclnnoQTZNSYHSB0288-66-07 16:44:00 Test Item Value Reference Range Interpretation Comments POC V PO2 (test code = POC V PO2) 41 20-49 [facility] CenterNogbacaKKAVTPYZZ3830-55-22 16:44:00 Test Item Value Reference Range Interpretation Comments POC V Source (test code = POC V Source) [facility] CenterBjqkjcrPUQKOPQQW1413-98-83 16:44:00 Test Item Value Reference Range Interpretation Comments POC V Temp (test code = POC V Temp) 37.0 [place] 223672-10-24 16:44:00 Test Item Value Reference Range Interpretation Comments POC V Ion Ca (test code = POC V Ion Ca) 1.20 1.05-1.25 [facility] CenterGpdjvbbOKWJKYUDR7565-31-95 16:44:00 Test Item Value Reference Range Interpretation Comments POC V K (test code = POC V K) 4.0 3.5-5.1 [facility] CenterUcwqkcmJQIHEVISZ4022-46-86 16:44:00 Test Item Value Reference Range Interpretation Comments POC V Na (test code = POC V Na) 130 135-145 [facility] CenterQynqxvnKISVLSWFF4651-28-20 16:44:00 Test Item Value Reference Range Interpretation Comments POC V LA (test code = POC V LA) 1.1 0.5-2.2 [place] [address]-10-24 16:44:00 Test Item Value Reference Range Interpretation Comments POC V pH (test code = POC V pH) 7.41 1 7.28-7.42 [place] [address]-10-24 16:44:00 Test Item Value Reference Range Interpretation Comments POC V PCO2 (test code = POC V PCO2) 40 38-52 [place] 223672-10-24 16:44:00 Test Item Value Reference Range Interpretation Comments POC V PO2 (test code = POC V PO2) 41 20-49 [facility] CenterGkuzltnBMJWAQOFR2555-60-02 16:44:00 Test Item Value Reference Range Interpretation Comments POC V HCO3 (test code = POC V HCO3) [facility] CenterXzhejwaCNLLGNOVU9424-86-52 16:44:00 Test Item Value Reference Range Interpretation Comments POC V BE (test code = POC V BE) [facility] CenterCpjktymFCJDHSNJY0166-66-81 16:44:00 Test Item Value Reference Range Interpretation Comments POC V O2 Sat (calc) (test code = POC V 76.8 40.0-70.0 O2 Sat (calc)) [facility] CenterJhaldvlZGGCSYOAA6711-63-16 16:44:00 Test Item Value Reference Range Interpretation Comments POC V Hgb Tot (test code = POC V Hgb 9.6 12.0-16.0 Tot) [facility] CenterBvygccvMMGHUGALX7718-93-27 16:44:00 Test Item Value Reference Range Interpretation Comments POC V Glu (test code = POC V Glu) 185 70-99 [facility] CenterDlavgxqJHQGXOGIO5122-23-98 16:44:00 Test Item Value Reference Range Interpretation Comments POC V Hct (calc) (test code = POC V Hct 29.0 36.0-48.0 (calc)) [facility] CenterGolmrgdUVDNHQHMR3244-36-26 16:44:00 Test Item Value Reference Range Interpretation Comments POC V Cl (test code = POC V Cl) 100 95-109 [facility] CenterPnxzwgqOXKGNVWMU2908-52-16 16:44:00 Test Item Value Reference Range Interpretation Comments POC V Ca Ion at pH 7.4 (test code = POC 1.20 1.05-1.25 V Ca Ion at pH 7.4) [facility] CenterHmcoviqQXAGOYFRU4588-29-22 16:44:00 Test Item Value Reference Range Interpretation Comments POC V HCO3 (test code = POC V HCO3) [facility] CenterBsmikkkUKDYLBOKK5327-07-49 16:44:00 Test Item Value Reference Range Interpretation Comments POC V BE (test code = POC V BE) - [facility] CenterGopwgopMBMBPNGCW2073-63-47 16:44:00 Test Item Value Reference Range Interpretation Comments POC V O2 Sat (calc) (test code = POC V 76.8 40.0-70.0 O2 Sat (calc)) [facility] CenterKlbdxlgQOAPRNHXE1198-03-84 16:44:00 Test Item Value Reference Range Interpretation Comments POC V Hgb Tot (test code = POC V Hgb 9.6 12.0-16.0 Tot) [facility] CenterXskxgbvVTMQAFFQT5369-78-80 16:44:00 Test Item Value Reference Range Interpretation Comments POC V Glu (test code = POC V Glu) 185 70-99 [facility] CenterTemxrtjZIPCOKZDS1184-77-99 16:44:00 Test Item Value Reference Range Interpretation Comments POC V Source (test code = POC V Source) [facility] CenterTezzlveLDGUCOOGN1997-97-49 16:44:00 Test Item Value Reference Range Interpretation Comments POC V Temp (test code = POC V Temp) 37.0 [facility] CenterEhdkjjaRNVGIJRCC6035-56-69 16:44:00 Test Item Value Reference Range Interpretation Comments POC V Ion Ca (test code = POC V Ion Ca) 1.20 1.05-1.25 [facility] CenterOrjbwbfCHCVHDXLO8483-85-54 16:44:00 Test Item Value Reference Range Interpretation Comments POC V K (test code = POC V K) 4.0 3.5-5.1 [facility] CenterEdjjcvhCRYRYXZYZ6620-03-30 16:44:00 Test Item Value Reference Range Interpretation Comments POC V Na (test code = POC V Na) 130 135-145 [facility] CenterUchhtcaUIFCYDDVZ9608-44-70 16:44:00 Test Item Value Reference Range Interpretation Comments POC V LA (test code = POC V LA) 1.1 0.5-2.2 [facility] CenterRqesvsvIBVMMEUOW9637-26-57 16:44:00 Test Item Value Reference Range Interpretation Comments POC V pH (test code = POC V pH) 7.41 1 7.28-7.42 [facility] CenterLzogeplHSJLLNNJH7893-39-38 16:44:00 Test Item Value Reference Range Interpretation Comments POC V PCO2 (test code = POC V PCO2) 40 38-52 [facility] CenterCvpcrajMECPCKVDI4077-15-27 16:44:00 Test Item Value Reference Range Interpretation Comments POC V PO2 (test code = POC V PO2) 41 20-49 [facility] CenterLhsuufwZADJAWBTM0140-01-87 16:44:00 Test Item Value Reference Range Interpretation Comments POC V HCO3 (test code = POC V HCO3) 25 22-26 [facility] CenterWfjcbweSTWFICXAT6426-37-34 16:44:00 Test Item Value Reference Range Interpretation Comments POC V BE (test code = POC V BE) 1 -2-2 [facility] CenterCrepthyHCCQKAPEI4618-16-80 16:44:00 Test Item Value Reference Range Interpretation Comments POC V O2 Sat (calc) (test code = POC V 76.8 40.0-70.0 O2 Sat (calc)) [facility] CenterRsgyttgMWNCIZABJ1345-88-39 16:44:00 Test Item Value Reference Range Interpretation Comments POC V Hgb Tot (test code = POC V Hgb 9.6 12.0-16.0 Tot) [facility] CenterVbsdpjfHHCKEVHIN0775-34-97 16:44:00 Test Item Value Reference Range Interpretation Comments POC V Glu (test code = POC V Glu) 185 70-99 [facility] CenterRqmplcrMILCURYFL4563-96-96 16:44:00 Test Item Value Reference Range Interpretation Comments POC V Hct (calc) (test code = POC V Hct 29.0 36.0-48.0 (calc)) [facility] CenterHgozsjjMITLOQOYH3732-92-95 16:44:00 Test Item Value Reference Range Interpretation Comments POC V Cl (test code = POC V Cl) 100 95-109 [facility] CenterBycmslnYSBDJGNIG4841-50-52 16:44:00 Test Item Value Reference Range Interpretation Comments POC V Ca Ion at pH 7.4 (test code = POC 1.20 1.05-1.25 V Ca Ion at pH 7.4) [facility] CenterMfebnrxYKXHTMLWF6650-99-05 16:44:00 Test Item Value Reference Range Interpretation Comments POC V Hct (calc) (test code = POC V Hct 29.0 36.0-48.0 (calc)) [facility] CenterDmhgywwHEHRYWMDJ9426-32-31 16:44:00 Test Item Value Reference Range Interpretation Comments POC V Cl (test code = POC V Cl) 100 95-109 [facility] CenterDjqtscuPPLQPOYHJ8563-08-98 16:44:00 Test Item Value Reference Range Interpretation Comments POC V Ca Ion at pH 7.4 (test code = POC 1.20 1.05-1.25 V Ca Ion at pH 7.4) [facility] CenterZftmhlrRLFPIYUZV5520-05-53 16:44:00 Test Item Value Reference Range Interpretation Comments POC V Source (test code = POC V Source) [place] [facility] CenterKaialraQCZSXJTBB8266-78-12 16:44:00 Test Item Value Reference Range Interpretation Comments POC V Temp (test code = POC V Temp) 37.0 [facility] CenterSlsfvoqYPXTJWKZA6816-93-49 16:44:00 Test Item Value Reference Range Interpretation Comments POC V Ion Ca (test code = POC V Ion Ca) 1.20 1.05-1.25 [facility] CenterTfcertkVOLDIRCPS7449-93-52 16:44:00 Test Item Value Reference Range Interpretation Comments POC V K (test code = POC V K) 4.0 3.5-5.1 [facility] CenterRqwjdqbSUMRLVOIX8731-07-49 16:44:00 Test Item Value Reference Range Interpretation Comments POC V Na (test code = POC V Na) 130 135-145 [facility] CenterNkshbonSPKJLTQOK9637-73-77 16:44:00 Test Item Value Reference Range Interpretation Comments POC V LA (test code = POC V LA) 1.1 0.5-2.2 [facility] CenterPkimioaCPQYKLLTD9440-73-58 16:44:00 Test Item Value Reference Range Interpretation Comments POC V pH (test code = POC V pH) 7.41 1 7.28-7.42 [facility] CenterAxyuiydRZZLXMDNN8521-38-13 16:44:00 Test Item Value Reference Range Interpretation Comments POC V PCO2 (test code = POC V PCO2) 40 38-52 [facility] CenterYqbqkhaQUSHMNBUQ4132-52-44 16:44:00 Test Item Value Reference Range Interpretation Comments POC V PO2 (test code = POC V PO2) 41 20-49 [facility] CenterLnexsmwNDZCVLYQM5285-87-68 16:44:00 Test Item Value Reference Range Interpretation Comments POC V HCO3 (test code = POC V HCO3) 25 22-26 [facility] CenterCtmshuwLREQEWFEX7199-99-67 16:44:00 Test Item Value Reference Range Interpretation Comments POC V BE (test code = POC V BE) 1 -2-2 [facility] CenterNjwoijbVCHXFNZKU6487-35-24 16:44:00 Test Item Value Reference Range Interpretation Comments POC V O2 Sat (calc) (test code = POC V 76.8 40.0-70.0 O2 Sat (calc)) [facility] CenterQqfcbbkCYJUFVAKR9278-87-49 16:44:00 Test Item Value Reference Range Interpretation Comments POC V Hgb Tot (test code = POC V Hgb 9.6 12.0-16.0 Tot) [facility] CenterYibpeppSZMWZYWDJ7561-70-00 16:44:00 Test Item Value Reference Range Interpretation Comments POC V Glu (test code = POC V Glu) 185 70-99 [facility] CenterZzurszfXQFDCLZPY3350-22-17 16:44:00 Test Item Value Reference Range Interpretation Comments POC V Hct (calc) (test code = POC V Hct 29.0 36.0-48.0 (calc)) [facility] CenterKztnpuaPXJLHABWB4381-46-28 16:44:00 Test Item Value Reference Range Interpretation Comments POC V Cl (test code = POC V Cl) 100 95-109 [facility] CenterGsvotozVLWDCITLV8670-35-49 16:44:00 Test Item Value Reference Range Interpretation Comments POC V Ca Ion at pH 7.4 (test code = POC 1.20 1.05-1.25 V Ca Ion at pH 7.4) [facility] CenterBvkbhsnLIMWQATQM0770-65-41 16:44:00 Test Item Value Reference Range Interpretation Comments POC V Source (test code = POC V Source) [facility] [facility] CenterFhwimkdYYEGWRNDK8750-63-96 16:44:00 Test Item Value Reference Range Interpretation Comments POC V Temp (test code = POC V Temp) 37.0 [place] 223672-10-24 16:44:00 Test Item Value Reference Range Interpretation Comments POC V Ion Ca (test code = POC V Ion Ca) 1.20 1.05-1.25 [facility] CenterQkeevliWULIDUOSJ1287-07-59 16:44:00 Test Item Value Reference Range Interpretation Comments POC V K (test code = POC V K) 4.0 3.5-5.1 [facility] CenterDumhcmfWPRGJAZCD7451-75-58 16:44:00 Test Item Value Reference Range Interpretation Comments POC V Na (test code = POC V Na) 130 135-145 [facility] CenterAqppgxhPFHIPQJXW2119-96-29 16:44:00 Test Item Value Reference Range Interpretation Comments POC V LA (test code = POC V LA) 1.1 0.5-2.2 [place] 223672-10-24 16:44:00 Test Item Value Reference Range Interpretation Comments POC V pH (test code = POC V pH) 7.41 1 7.28-7.42 [place] 223672-10-24 16:44:00 Test Item Value Reference Range Interpretation Comments POC V PCO2 (test code = POC V PCO2) 40 38-52 [facility] CenterRgekbgfJQPTAFHSK4585-92-09 16:44:00 Test Item Value Reference Range Interpretation Comments POC V PO2 (test code = POC V PO2) 41 20-49 [facility] CenterIwzpzbzAJEAYEGNQ0599-90-73 16:44:00 Test Item Value Reference Range Interpretation Comments POC V HCO3 (test code = POC V HCO3) 25 22-26 [facility] CenterCzpedspQGMGHYIWT1832-58-28 16:44:00 Test Item Value Reference Range Interpretation Comments POC V BE (test code = POC V BE) 1 -2-2 [facility] CenterFvdcqwyWAQOMNCYD9074-58-63 16:44:00 Test Item Value Reference Range Interpretation Comments POC V O2 Sat (calc) (test code = POC V 76.8 40.0-70.0 O2 Sat (calc)) [facility] CenterJicjqyuPHJEKWAYA5481-90-54 16:44:00 Test Item Value Reference Range Interpretation Comments POC V Hgb Tot (test code = POC V Hgb 9.6 12.0-16.0 Tot) [facility] CenterEhmtqpaBPIGPSWSH2677-91-12 16:44:00 Test Item Value Reference Range Interpretation Comments POC V Glu (test code = POC V Glu) 185 70-99 [facility] CenterVbamxkkGFXDLHADE2896-60-92 16:44:00 Test Item Value Reference Range Interpretation Comments POC V Hct (calc) (test code = POC V Hct 29.0 36.0-48.0 (calc)) [facility] CenterQpyeuwqIOOVFTIPY4485-97-53 16:44:00 Test Item Value Reference Range Interpretation Comments POC V Cl (test code = POC V Cl) 100 95-109 [facility] CenterGwrdhpdRPRWCEGIM8637-88-19 16:44:00 Test Item Value Reference Range Interpretation Comments POC V Ca Ion at pH 7.4 (test code = POC 1.20 1.05-1.25 V Ca Ion at pH 7.4) [facility] CenterPymfpsqUOKHRVJQE1413-45-91 16:44:00 Test Item Value Reference Range Interpretation Comments POC V Source (test code = POC V Source) [facility] [facility] CenterZcxhueeCUGWRUHBV2598-12-56 16:44:00 Test Item Value Reference Range Interpretation Comments POC V Temp (test code = POC V Temp) 37.0 [facility] CenterKveglddCNKGFIHLK9515-24-68 16:44:00 Test Item Value Reference Range Interpretation Comments POC V Ion Ca (test code = POC V Ion Ca) 1.20 1.05-1.25 [facility] CenterJqjlikaCKBJOWVSS8272-05-48 16:44:00 Test Item Value Reference Range Interpretation Comments POC V K (test code = POC V K) 4.0 3.5-5.1 [facility] CenterOjqlwbfOLEJLGZGA4531-73-03 16:44:00 Test Item Value Reference Range Interpretation Comments POC V Na (test code = POC V Na) 130 135-145 [facility] CenterCwfyxbgLOEFWLVPO5090-87-99 16:44:00 Test Item Value Reference Range Interpretation Comments POC V LA (test code = POC V LA) 1.1 0.5-2.2 [facility] CenterZiriyugXGLMKKGHS2925-13-64 16:44:00 Test Item Value Reference Range Interpretation Comments POC V pH (test code = POC V pH) 7.41 1 7.28-7.42 [facility] CenterHvwbvycPXEKCBVLU0140-67-79 16:44:00 Test Item Value Reference Range Interpretation Comments POC V PCO2 (test code = POC V PCO2) 40 38-52 [facility] CenterUtqitlvWHNOHNFZJ0337-35-68 16:44:00 Test Item Value Reference Range Interpretation Comments POC V PO2 (test code = POC V PO2) 41 20-49 [facility] CenterByskyrhVSQRXWYTV0403-32-66 16:44:00 Test Item Value Reference Range Interpretation Comments POC V HCO3 (test code = POC V HCO3) 25 22-26 [facility] CenterAizimzcNNDPMSMVF4363-48-54 16:44:00 Test Item Value Reference Range Interpretation Comments POC V BE (test code = POC V BE) 1 -2-2 [facility] CenterSxvpzxgLBWNEJIRP9798-65-61 16:44:00 Test Item Value Reference Range Interpretation Comments POC V O2 Sat (calc) (test code = POC V 76.8 40.0-70.0 O2 Sat (calc)) [facility] CenterJyccnsjYJLGGGUZD4919-39-70 16:44:00 Test Item Value Reference Range Interpretation Comments POC V Hgb Tot (test code = POC V Hgb 9.6 12.0-16.0 Tot) [facility] CenterBndzsguNZMURQBYZ1523-87-11 16:44:00 Test Item Value Reference Range Interpretation Comments POC V Glu (test code = POC V Glu) 185 70-99 [facility] CenterXummdxqNNVCLDHMU3729-67-75 16:44:00 Test Item Value Reference Range Interpretation Comments POC V Hct (calc) (test code = POC V Hct 29.0 36.0-48.0 (calc)) [facility] CenterJxvwajfIAPJDQSMA7015-52-04 16:44:00 Test Item Value Reference Range Interpretation Comments POC V Cl (test code = POC V Cl) 100 95-109 [facility] CenterKqkvfnqQEXXVUBQW9765-05-25 16:44:00 Test Item Value Reference Range Interpretation Comments POC V Ca Ion at pH 7.4 (test code = POC 1.20 1.05-1.25 V Ca Ion at pH 7.4) [facility] CenterMrtxjnaSYZXWCVEN5709-55-14 16:44:00 Test Item Value Reference Range Interpretation Comments POC V Source (test code = POC V Source) [facility] CenterCzslvscRRTUBLJYR2206-20-09 16:44:00 Test Item Value Reference Range Interpretation Comments POC V Temp (test code = POC V Temp) 37.0 [facility] CenterGqsgycsKSCKKKBJE3364-51-10 16:44:00 Test Item Value Reference Range Interpretation Comments POC V Ion Ca (test code = POC V Ion Ca) 1.20 1.05-1.25 [facility] CenterXxhfnihDDTGWJMSD1381-60-60 16:44:00 Test Item Value Reference Range Interpretation Comments POC V K (test code = POC V K) 4.0 3.5-5.1 [facility] CenterQuxqxjeRSKACFLAF8464-94-61 16:44:00 Test Item Value Reference Range Interpretation Comments POC V Na (test code = POC V Na) 130 135-145 [facility] CenterXkvehxnFQGMAUDWZ1600-63-77 16:44:00 Test Item Value Reference Range Interpretation Comments POC V LA (test code = POC V LA) 1.1 0.5-2.2 [facility] CenterDmnbjklCPWRPUGWR9928-52-46 16:44:00 Test Item Value Reference Range Interpretation Comments POC V pH (test code = POC V pH) 7.41 1 7.28-7.42 [facility] CenterUlwjoboNPVGRXQRI1805-79-22 16:44:00 Test Item Value Reference Range Interpretation Comments POC V PCO2 (test code = POC V PCO2) 40 38-52 [facility] CenterVnausqlOJTCJFGFG4683-61-53 16:44:00 Test Item Value Reference Range Interpretation Comments POC V PO2 (test code = POC V PO2) 41 20-49 [place] [address]-10-24 16:44:00 Test Item Value Reference Range Interpretation Comments POC V HCO3 (test code = POC V HCO3) 25 22-26 [facility] CenterEmccticDNXDUHEAU4853-08-88 16:44:00 Test Item Value Reference Range Interpretation Comments POC V BE (test code = POC V BE) 1 -2-2 [facility] CenterMjifxsxBMTIOYKGX0723-56-10 16:44:00 Test Item Value Reference Range Interpretation Comments POC V O2 Sat (calc) (test code = POC V 76.8 40.0-70.0 O2 Sat (calc)) [facility] CenterJqxswbtMGKSHEILZ2789-38-38 16:44:00 Test Item Value Reference Range Interpretation Comments POC V Hgb Tot (test code = POC V Hgb 9.6 12.0-16.0 Tot) [facility] CenterNygozfzXBMHAFSSX6423-46-71 16:44:00 Test Item Value Reference Range Interpretation Comments POC V Glu (test code = POC V Glu) 185 70-99 [facility] CenterMotckeyQCSCLJECT9825-69-30 16:44:00 Test Item Value Reference Range Interpretation Comments POC V Hct (calc) (test code = POC V Hct 29.0 36.0-48.0 (calc)) [facility] CenterYgicgnsWSRNIUXZN2819-31-94 16:44:00 Test Item Value Reference Range Interpretation Comments POC V Cl (test code = POC V Cl) 100 95-109 [facility] CenterEkoeqmjVLBTWXQTG0796-14-01 16:44:00 Test Item Value Reference Range Interpretation Comments POC V Ca Ion at pH 7.4 (test code = POC 1.20 1.05-1.25 V Ca Ion at pH 7.4) [facility] CenterDukbcxiPXHJYUEZE4289-86-70 16:44:00 Test Item Value Reference Range Interpretation Comments POC V Source (test code = POC V Source) [facility] CenterEljoihnTWOKTRFXG8030-27-61 16:44:00 Test Item Value Reference Range Interpretation Comments POC V Temp (test code = POC V Temp) 37.0 [facility] CenterXzkzhlzLRMGVIDMA1368-41-44 16:44:00 Test Item Value Reference Range Interpretation Comments POC V Ion Ca (test code = POC V Ion Ca) 1.20 1.05-1.25 [facility] CenterSvbvewuSOWLMCVVH5275-21-37 16:44:00 Test Item Value Reference Range Interpretation Comments POC V K (test code = POC V K) 4.0 3.5-5.1 [facility] CenterFpvvabuTVXNNFSIP6374-80-26 16:44:00 Test Item Value Reference Range Interpretation Comments POC V Na (test code = POC V Na) 130 135-145 [facility] CenterXdwluhuHIMGVWLRJ8926-14-86 16:44:00 Test Item Value Reference Range Interpretation Comments POC V LA (test code = POC V LA) 1.1 0.5-2.2 [facility] CenterNyflulePQFBNLTBF3850-76-37 16:44:00 Test Item Value Reference Range Interpretation Comments POC V pH (test code = POC V pH) 7.41 1 7.28-7.42 [facility] CenterYqsssdxZHBNJGQHB3672-46-49 16:44:00 Test Item Value Reference Range Interpretation Comments POC V PCO2 (test code = POC V PCO2) 40 38-52 [place] [address]-10-24 16:44:00 Test Item Value Reference Range Interpretation Comments POC V PO2 (test code = POC V PO2) 41 20-49 [facility] CenterIvrwlxvCRISXBGFY3255-26-50 16:44:00 Test Item Value Reference Range Interpretation Comments POC V HCO3 (test code = POC V HCO3) 25 22-26 [facility] CenterFcszjzkUEPRFNKLO0726-97-87 16:44:00 Test Item Value Reference Range Interpretation Comments POC V BE (test code = POC V BE) 1 -2-2 [facility] CenterBpwziimRXBLTTAYK8993-71-34 16:44:00 Test Item Value Reference Range Interpretation Comments POC V O2 Sat (calc) (test code = POC V 76.8 40.0-70.0 O2 Sat (calc)) [facility] CenterIbnnhdiWRCMZXLDX1162-04-79 16:44:00 Test Item Value Reference Range Interpretation Comments POC V Hgb Tot (test code = POC V Hgb 9.6 12.0-16.0 Tot) [facility] CenterSgqqithJRFRHIDVZ5355-84-20 16:44:00 Test Item Value Reference Range Interpretation Comments POC V Glu (test code = POC V Glu) 185 70-99 [facility] CenterRpvvgqxHIBAPRCDL7238-77-20 16:44:00 Test Item Value Reference Range Interpretation Comments POC V Hct (calc) (test code = POC V Hct 29.0 36.0-48.0 (calc)) [facility] CenterAqwrmowZRTQEGXPI3322-02-23 16:44:00 Test Item Value Reference Range Interpretation Comments POC V Cl (test code = POC V Cl) 100 95-109 [facility] CenterZryzzknQSVXPRWJR6135-03-10 16:44:00 Test Item Value Reference Range Interpretation Comments POC V Ca Ion at pH 7.4 (test code = POC 1.20 1.05-1.25 V Ca Ion at pH 7.4) [facility] CenterTgqvoyvXVJIAPVEJ4712-20-29 16:44:00 Test Item Value Reference Range Interpretation Comments POC V Source (test code = POC V Source) [facility] CenterXzyddarNYBOMXNQA4413-97-07 16:44:00 Test Item Value Reference Range Interpretation Comments POC V Temp (test code = POC V Temp) 37.0 [facility] CenterYtaceqhNXSQVUIZZ3376-02-93 16:44:00 Test Item Value Reference Range Interpretation Comments POC V Ion Ca (test code = POC V Ion Ca) 1.20 1.05-1.25 [facility] CenterYndyjbiBRKFKBMKF1465-25-58 16:44:00 Test Item Value Reference Range Interpretation Comments POC V K (test code = POC V K) 4.0 3.5-5.1 [facility] CenterJxteydrKOLXULVXL3187-36-94 16:44:00 Test Item Value Reference Range Interpretation Comments POC V Na (test code = POC V Na) 130 135-145 [facility] CenterLoekckoFPMDKPYVN9697-85-35 16:44:00 Test Item Value Reference Range Interpretation Comments POC V LA (test code = POC V LA) 1.1 0.5-2.2 [facility] CenterQjmchffZDBIJEWRA9637-09-66 16:44:00 Test Item Value Reference Range Interpretation Comments POC V pH (test code = POC V pH) 7.41 1 7.28-7.42 [facility] CenterFokuovaVIEHZSQIG5593-66-97 16:44:00 Test Item Value Reference Range Interpretation Comments POC V PCO2 (test code = POC V PCO2) 40 38-52 [facility] CenterIebpdffTCVZMSQTG0204-60-30 16:44:00 Test Item Value Reference Range Interpretation Comments POC V PO2 (test code = POC V PO2) 41 20-49 [facility] CenterPmmjmgsXBTQEVKOV9137-07-90 16:44:00 Test Item Value Reference Range Interpretation Comments POC V HCO3 (test code = POC V HCO3) 25 22-26 [facility] CenterJfslralPQZTXAQMA7315-85-48 16:44:00 Test Item Value Reference Range Interpretation Comments POC V BE (test code = POC V BE) 1 -2-2 [facility] CenterEfhzlinCKMBJUEKW1885-45-57 16:44:00 Test Item Value Reference Range Interpretation Comments POC V O2 Sat (calc) (test code = POC V 76.8 40.0-70.0 O2 Sat (calc)) [facility] CenterSlswieiAZXUVECLL1971-51-27 16:44:00 Test Item Value Reference Range Interpretation Comments POC V Hgb Tot (test code = POC V Hgb 9.6 12.0-16.0 Tot) [facility] CenterGsgyxepVLAWUZMUJ5324-91-87 16:44:00 Test Item Value Reference Range Interpretation Comments POC V Glu (test code = POC V Glu) 185 70-99 [facility] CenterMmneutrZZQFUDRCY4799-51-32 16:44:00 Test Item Value Reference Range Interpretation Comments POC V Hct (calc) (test code = POC V Hct 29.0 36.0-48.0 (calc)) [facility] CenterXgodwuyWPRQHYBRX6671-36-46 16:44:00 Test Item Value Reference Range Interpretation Comments POC V Cl (test code = POC V Cl) 100 95-109 [facility] CenterYjufpriNXXUTAADS2871-59-06 16:44:00 Test Item Value Reference Range Interpretation Comments POC V Ca Ion at pH 7.4 (test code = POC 1.20 1.05-1.25 V Ca Ion at pH 7.4) [facility] CenterHsiqyduVNSOKLSYT4358-34-59 16:44:00 Test Item Value Reference Range Interpretation Comments POC V Source (test code = POC V Source) [facility] CenterRnefmzuKENJUBHDB6574-88-77 16:44:00 Test Item Value Reference Range Interpretation Comments POC V Temp (test code = POC V Temp) 37.0 [facility] CenterSojfdytHHQFOAUSG6654-21-08 16:44:00 Test Item Value Reference Range Interpretation Comments POC V Ion Ca (test code = POC V Ion Ca) 1.20 1.05-1.25 [facility] CenterAifenigASIWGNFLR2024-58-00 16:44:00 Test Item Value Reference Range Interpretation Comments POC V K (test code = POC V K) 4.0 3.5-5.1 [facility] CenterSdetoppHWDSEEJGK8612-97-30 16:44:00 Test Item Value Reference Range Interpretation Comments POC V Na (test code = POC V Na) 130 135-145 [facility] CenterDgouqkgQMCBZVYVI8770-74-58 16:44:00 Test Item Value Reference Range Interpretation Comments POC V LA (test code = POC V LA) 1.1 0.5-2.2 [facility] CenterUvxfnsgQEZLMMAPH5138-99-49 16:44:00 Test Item Value Reference Range Interpretation Comments POC V pH (test code = POC V pH) 7.41 1 7.28-7.42 [facility] CenterOxhoobkMFYSHFMLN7073-62-87 16:44:00 Test Item Value Reference Range Interpretation Comments POC V PCO2 (test code = POC V PCO2) 40 38-52 [facility] CenterGeghesnRBHJLUTNT3483-77-66 16:44:00 Test Item Value Reference Range Interpretation Comments POC V PO2 (test code = POC V PO2) 41 20-49 [facility] CenterObatrrpJGXFGOOHC9322-96-62 16:44:00 Test Item Value Reference Range Interpretation Comments POC V HCO3 (test code = POC V HCO3) 25 22-26 [facility] CenterBvpfmawFTYQNZVJQ9146-79-60 16:44:00 Test Item Value Reference Range Interpretation Comments POC V BE (test code = POC V BE) 1 -2-2 [facility] CenterYhrdaixZGNTGNRKX5040-57-05 16:44:00 Test Item Value Reference Range Interpretation Comments POC V O2 Sat (calc) (test code = POC V 76.8 40.0-70.0 O2 Sat (calc)) [facility] CenterZhiuxucXXHXGRVDG3927-11-40 16:44:00 Test Item Value Reference Range Interpretation Comments POC V Hgb Tot (test code = POC V Hgb 9.6 12.0-16.0 Tot) [facility] CenterNfovopvZIWQOSNJQ1071-57-57 16:44:00 Test Item Value Reference Range Interpretation Comments POC V Glu (test code = POC V Glu) 185 70-99 [facility] CenterXvbojufSAUQSCPFY4897-66-80 16:44:00 Test Item Value Reference Range Interpretation Comments POC V Hct (calc) (test code = POC V Hct 29.0 36.0-48.0 (calc)) [facility] CenterSybnmdpRLZQXVGCE2714-16-06 16:44:00 Test Item Value Reference Range Interpretation Comments POC V Cl (test code = POC V Cl) 100 95-109 [facility] CenterZzffgfsACQTOZHIL1224-77-70 16:44:00 Test Item Value Reference Range Interpretation Comments POC V Ca Ion at pH 7.4 (test code = POC 1.20 1.05-1.25 V Ca Ion at pH 7.4) [facility] CenterErveofcMDGLKDIRL8964-30-58 16:44:00 Test Item Value Reference Range Interpretation Comments POC V Source (test code = POC V Source) [facility]2022-10-24 16:44:00 Test Item Value Reference Range Interpretation Comments POC V Temp (test code = POC V Temp) 37.0 [facility] CenterNnvrgqxOKNCXTDNO6142-37-06 16:44:00 Test Item Value Reference Range Interpretation Comments POC V Ion Ca (test code = POC V Ion Ca) 1.20 1.05-1.25 [facility] CenterGkwgmkdUNCKQTIMU7718-49-70 16:44:00 Test Item Value Reference Range Interpretation Comments POC V K (test code = POC V K) 4.0 3.5-5.1 [facility] CenterYhwipvaJRGLPNXFL0979-00-46 16:44:00 Test Item Value Reference Range Interpretation Comments POC V Na (test code = POC V Na) 130 135-145 [facility] CenterYoiuyrbKWHRYCNSH3969-26-26 16:44:00 Test Item Value Reference Range Interpretation Comments POC V Source (test code = POC V Source) [facility]2022-10-24 16:44:00 Test Item Value Reference Range Interpretation Comments POC V Temp (test code = POC V Temp) 37.0 [facility] CenterFrpobufNXHECZBCS1027-79-02 16:44:00 Test Item Value Reference Range Interpretation Comments POC V Ion Ca (test code = POC V Ion Ca) 1.20 1.05-1.25 [facility] CenterRdjrqqpXAQMLSRQQ0921-67-63 16:44:00 Test Item Value Reference Range Interpretation Comments POC V K (test code = POC V K) 4.0 3.5-5.1 [facility] CenterJtyloskNIYLJBQWJ6170-59-55 16:44:00 Test Item Value Reference Range Interpretation Comments POC V Na (test code = POC V Na) 130 135-145 [facility] CenterHckxfmuMXLRSQDNQ5182-32-33 16:44:00 Test Item Value Reference Range Interpretation Comments POC V LA (test code = POC V LA) 1.1 0.5-2.2 [facility] CenterXniywdaYYZJANKPW1930-08-67 16:44:00 Test Item Value Reference Range Interpretation Comments POC V pH (test code = POC V pH) 7.41 1 7.28-7.42 [facility] CenterRshzzbeRGDTNPFYJ8100-96-01 16:44:00 Test Item Value Reference Range Interpretation Comments POC V LA (test code = POC V LA) 1.1 0.5-2.2 [place] 223672-10-24 16:44:00 Test Item Value Reference Range Interpretation Comments POC V PCO2 (test code = POC V PCO2) 40 38-52 [facility] CenterExrqnyyEYWYDKTSW4434-26-11 16:44:00 Test Item Value Reference Range Interpretation Comments POC V PO2 (test code = POC V PO2) 41 20-49 [facility] CenterQaxnhvhYLVRLPFLM7150-73-63 16:44:00 Test Item Value Reference Range Interpretation Comments POC V HCO3 (test code = POC V HCO3) 25 22-26 [facility] CenterPqofhhtTOLYVMCRG5085-26-03 16:44:00 Test Item Value Reference Range Interpretation Comments POC V BE (test code = POC V BE) 1 -2-2 [facility] CenterCwtmvmkORTWMMANX3004-79-15 16:44:00 Test Item Value Reference Range Interpretation Comments POC V O2 Sat (calc) (test code = POC V 76.8 40.0-70.0 O2 Sat (calc)) [facility] CenterAxjenhzGRUOENXWQ8189-03-48 16:44:00 Test Item Value Reference Range Interpretation Comments POC V Hgb Tot (test code = POC V Hgb 9.6 12.0-16.0 Tot) [facility] CenterNhrxzvtJNCZSXFWO2559-58-73 16:44:00 Test Item Value Reference Range Interpretation Comments POC V Glu (test code = POC V Glu) 185 70-99 [facility] CenterGjedbrqIDLNAQSZW2669-27-18 16:44:00 Test Item Value Reference Range Interpretation Comments POC V Hct (calc) (test code = POC V Hct 29.0 36.0-48.0 (calc)) [facility] CenterEewhawfLEWQVZIMA6427-22-91 16:44:00 Test Item Value Reference Range Interpretation Comments POC V Cl (test code = POC V Cl) 100 95-109 [facility] CenterBjeswjkIHOILLVFY1216-61-43 16:44:00 Test Item Value Reference Range Interpretation Comments POC V Ca Ion at pH 7.4 (test code = POC 1.20 1.05-1.25 V Ca Ion at pH 7.4) [facility] CenterVddziuqMCNESQVAS1555-00-02 16:44:00 Test Item Value Reference Range Interpretation Comments POC V pH (test code = POC V pH) 7.41 1 7.28-7.42 [facility] CenterLqywpadFAHOBLWYQ9205-20-27 16:44:00 Test Item Value Reference Range Interpretation Comments POC V PCO2 (test code = POC V PCO2) 40 38-52 [facility] CenterDvnjazjLWYQPGPVV2436-51-31 16:44:00 Test Item Value Reference Range Interpretation Comments POC V PO2 (test code = POC V PO2) 41 20-49 [facility] CenterUudcbpkZSDUETUUO2377-39-47 16:44:00 Test Item Value Reference Range Interpretation Comments POC V HCO3 (test code = POC V HCO3) 25 22-26 [facility] CenterZxynggeQVSCDTAMU2573-59-35 16:44:00 Test Item Value Reference Range Interpretation Comments POC V BE (test code = POC V BE) 1 -2-2 [facility] CenterPrfzrbkUCOOLRQXR8690-17-18 16:44:00 Test Item Value Reference Range Interpretation Comments POC V O2 Sat (calc) (test code = POC V 76.8 40.0-70.0 O2 Sat (calc)) [facility] CenterPlrmtsvQIUMNIFXD5688-50-81 16:44:00 Test Item Value Reference Range Interpretation Comments POC V Hgb Tot (test code = POC V Hgb 9.6 12.0-16.0 Tot) [facility] CenterNegiyaaNUNCHEBJQ4197-32-39 16:44:00 Test Item Value Reference Range Interpretation Comments POC V Glu (test code = POC V Glu) 185 70-99 [facility] CenterKksxdgxNNXZDMBAK6678-22-96 16:44:00 Test Item Value Reference Range Interpretation Comments POC V Hct (calc) (test code = POC V Hct 29.0 36.0-48.0 (calc)) [facility] CenterPcbycfaDTVHTYSEL7067-95-39 16:44:00 Test Item Value Reference Range Interpretation Comments POC V Cl (test code = POC V Cl) 100 95-109 [facility] CenterSddyspvNUZJIEKJU5246-96-16 16:44:00 Test Item Value Reference Range Interpretation Comments POC V Ca Ion at pH 7.4 (test code = POC 1.20 1.05-1.25 V Ca Ion at pH 7.4) [facility] CenterZgjricdDZBLODYTP1228-60-20 16:44:00 Test Item Value Reference Range Interpretation Comments POC V Source (test code = POC V Source) [facility] CenterJhgwlwdUVZEJCUFC4470-89-41 16:44:00 Test Item Value Reference Range Interpretation Comments POC V Temp (test code = POC V Temp) 37.0 [facility] CenterWwaadilOBHOEGKIC1247-16-59 16:44:00 Test Item Value Reference Range Interpretation Comments POC V Ion Ca (test code = POC V Ion Ca) 1.20 1.05-1.25 [facility] CenterTaqldrgABTOKMTOB8015-95-20 16:44:00 Test Item Value Reference Range Interpretation Comments POC V K (test code = POC V K) 4.0 3.5-5.1 [facility] CenterVnjyesoEGIAMZYUJ3573-56-39 16:44:00 Test Item Value Reference Range Interpretation Comments POC V Na (test code = POC V Na) 130 135-145 [facility] CenterQlcvkboWVPIWZRUX8197-41-73 16:44:00 Test Item Value Reference Range Interpretation Comments POC V LA (test code = POC V LA) 1.1 0.5-2.2 [facility] CenterNztleclMEAPYUVYS0667-32-86 16:44:00 Test Item Value Reference Range Interpretation Comments POC V pH (test code = POC V pH) 7.41 1 7.28-7.42 [facility] CenterRewdugoZACXNLXIY3957-67-01 16:44:00 Test Item Value Reference Range Interpretation Comments POC V PCO2 (test code = POC V PCO2) 40 38-52 [facility] CenterUdrodxkZKCPWIRTV7332-25-47 16:44:00 Test Item Value Reference Range Interpretation Comments POC V PO2 (test code = POC V PO2) 41 20-49 [facility] CenterKrohkhvXRWQVBBNR1050-30-20 16:44:00 Test Item Value Reference Range Interpretation Comments POC V HCO3 (test code = POC V HCO3) 25 22-26 [facility] CenterKdmjgtxCWLNFDWEW8861-13-83 16:44:00 Test Item Value Reference Range Interpretation Comments POC V BE (test code = POC V BE) 1 -2-2 [facility] CenterZkblmadUVLALBYWI2443-85-79 16:44:00 Test Item Value Reference Range Interpretation Comments POC V O2 Sat (calc) (test code = POC V 76.8 40.0-70.0 O2 Sat (calc)) [facility] CenterBwtjpegGESWKOOIF6322-75-44 16:44:00 Test Item Value Reference Range Interpretation Comments POC V Hgb Tot (test code = POC V Hgb 9.6 12.0-16.0 Tot) [facility] CenterKbhyaxfTHLXVITSW4710-22-80 16:44:00 Test Item Value Reference Range Interpretation Comments POC V Glu (test code = POC V Glu) 185 70-99 [facility] CenterDgmsysgSORGHKFWF3083-64-82 16:44:00 Test Item Value Reference Range Interpretation Comments POC V Hct (calc) (test code = POC V Hct 29.0 36.0-48.0 (calc)) [facility] CenterEdjhmnyODGSMEIAY8636-61-75 16:44:00 Test Item Value Reference Range Interpretation Comments POC V Cl (test code = POC V Cl) 100 95-109 [facility] CenterLxolftmYKJFYVDLG1927-46-33 16:44:00 Test Item Value Reference Range Interpretation Comments POC V Ca Ion at pH 7.4 (test code = POC 1.20 1.05-1.25 V Ca Ion at pH 7.4) [facility] CenterHahaxesNFEFFXBUL1579-63-95 16:44:00 Test Item Value Reference Range Interpretation Comments POC V Source (test code = POC V Source) [facility] [facility] CenterZutdjixOUBYGHLPZ3419-82-90 16:44:00 Test Item Value Reference Range Interpretation Comments POC V Temp (test code = POC V Temp) 37.0 [facility] CenterJtrcfzgLEKHQIBGI8976-13-87 16:44:00 Test Item Value Reference Range Interpretation Comments POC V Ion Ca (test code = POC V Ion Ca) 1.20 1.05-1.25 [facility] CenterTskzyeuBOAHFVDPN3138-92-29 16:44:00 Test Item Value Reference Range Interpretation Comments POC V K (test code = POC V K) 4.0 3.5-5.1 [facility] CenterWzbxdtnIWGGWFGGH8126-83-48 16:44:00 Test Item Value Reference Range Interpretation Comments POC V Na (test code = POC V Na) 130 135-145 [facility] CenterJpeqqtlSEAWMLSQN3130-02-21 16:44:00 Test Item Value Reference Range Interpretation Comments POC V LA (test code = POC V LA) 1.1 0.5-2.2 [facility] CenterBggdjszPMKZBGVHQ9426-19-43 16:44:00 Test Item Value Reference Range Interpretation Comments POC V pH (test code = POC V pH) 7.41 1 7.28-7.42 [facility] CenterZctbgfjQZJHFRGLH8207-13-82 16:44:00 Test Item Value Reference Range Interpretation Comments POC V PCO2 (test code = POC V PCO2) 40 38-52 [facility] CenterPtvjixrXIZEGTGFK2841-69-08 16:44:00 Test Item Value Reference Range Interpretation Comments POC V PO2 (test code = POC V PO2) 41 20-49 [facility] CenterLqhqhhaEJECNMAKP3190-45-44 16:44:00 Test Item Value Reference Range Interpretation Comments POC V HCO3 (test code = POC V HCO3) 25 22-26 [facility] CenterEqxgcimBDIPXCVBR5776-90-43 16:44:00 Test Item Value Reference Range Interpretation Comments POC V BE (test code = POC V BE) 1 -2-2 [facility] CenterMhtovdnVIVKPGCAY8088-71-84 16:44:00 Test Item Value Reference Range Interpretation Comments POC V O2 Sat (calc) (test code = POC V 76.8 40.0-70.0 O2 Sat (calc)) [facility] CenterRflvsecNGZBSCZER1980-13-00 16:44:00 Test Item Value Reference Range Interpretation Comments POC V Hgb Tot (test code = POC V Hgb 9.6 12.0-16.0 Tot) [facility] CenterUnnqehfXGOQXRVRD2399-78-89 16:44:00 Test Item Value Reference Range Interpretation Comments POC V Glu (test code = POC V Glu) 185 70-99 [facility] CenterSvkxmqgAMFNFVJZQ8427-34-77 16:44:00 Test Item Value Reference Range Interpretation Comments POC V Hct (calc) (test code = POC V Hct 29.0 36.0-48.0 (calc)) [facility] CenterZhznjiyRXCOCJFDZ7570-52-18 16:44:00 Test Item Value Reference Range Interpretation Comments POC V Cl (test code = POC V Cl) 100 95-109 [facility] CenterRpcysdwNYUQIASKI2049-22-86 16:44:00 Test Item Value Reference Range Interpretation Comments POC V Ca Ion at pH 7.4 (test code = POC 1.20 1.05-1.25 V Ca Ion at pH 7.4) [facility] CenterWwvqbgvJJGNUXKAD1100-66-80 16:44:00 Test Item Value Reference Range Interpretation Comments POC V Source (test code = POC V Source) [facility] CenterWinsnpdWLKVBCAWE8136-00-49 16:44:00 Test Item Value Reference Range Interpretation Comments POC V Temp (test code = POC V Temp) 37.0 [facility] CenterEawsxoxZFICDOVQH8628-16-04 16:44:00 Test Item Value Reference Range Interpretation Comments POC V Ion Ca (test code = POC V Ion Ca) 1.20 1.05-1.25 [facility] CenterQkgvgxbZODYCCOFK5840-71-25 16:44:00 Test Item Value Reference Range Interpretation Comments POC V K (test code = POC V K) 4.0 3.5-5.1 [facility] CenterCmlfbhnHZTQTVWGM9540-36-05 16:44:00 Test Item Value Reference Range Interpretation Comments POC V Na (test code = POC V Na) 130 135-145 [facility] CenterKyeaoodRLEPFVVXK5620-33-23 16:44:00 Test Item Value Reference Range Interpretation Comments POC V LA (test code = POC V LA) 1.1 0.5-2.2 [facility] CenterPuuujfdQSESCENSG6728-27-45 16:44:00 Test Item Value Reference Range Interpretation Comments POC V pH (test code = POC V pH) 7.41 1 7.28-7.42 [facility] CenterTcsddhiHRTGHGLFY9365-77-48 16:44:00 Test Item Value Reference Range Interpretation Comments POC V PCO2 (test code = POC V PCO2) 40 38-52 [facility] CenterGksbjibPKUBNNDDA2299-47-67 16:44:00 Test Item Value Reference Range Interpretation Comments POC V PO2 (test code = POC V PO2) 41 20-49 [facility] CenterLgrvoewPGYYPOFNY4401-75-57 16:44:00 Test Item Value Reference Range Interpretation Comments POC V HCO3 (test code = POC V HCO3) 25 22-26 [facility] CenterSlytloaDWBSDIZPS2216-61-21 16:44:00 Test Item Value Reference Range Interpretation Comments POC V BE (test code = POC V BE) 1 -2-2 [facility] CenterVpruheiXANBMYGNN0225-54-82 16:44:00 Test Item Value Reference Range Interpretation Comments POC V O2 Sat (calc) (test code = POC V 76.8 40.0-70.0 O2 Sat (calc)) [facility] CenterUsrlqyjXBEUSIIYU5074-68-52 16:44:00 Test Item Value Reference Range Interpretation Comments POC V Hgb Tot (test code = POC V Hgb 9.6 12.0-16.0 Tot) [facility] CenterFikilmqGDMDISKKN2915-26-62 16:44:00 Test Item Value Reference Range Interpretation Comments POC V Glu (test code = POC V Glu) 185 70-99 [facility] CenterEjhrkgoGKEVKSAQT6969-73-37 16:44:00 Test Item Value Reference Range Interpretation Comments POC V Hct (calc) (test code = POC V Hct 29.0 36.0-48.0 (calc)) [facility] CenterJpzsxplJADXKTXBH7418-05-06 16:44:00 Test Item Value Reference Range Interpretation Comments POC V Cl (test code = POC V Cl) 100 95-109 [facility] CenterCwtdmfiFHRYUUPYO9476-52-30 16:44:00 Test Item Value Reference Range Interpretation Comments POC V Ca Ion at pH 7.4 (test code = POC 1.20 1.05-1.25 V Ca Ion at pH 7.4) [facility] CenterAyiqylkCWEMPXQPJ9279-59-97 16:44:00 Test Item Value Reference Range Interpretation Comments POC V Source (test code = POC V Source) [facility] CenterYpygrziGBUXGGRBY8277-46-71 16:44:00 Test Item Value Reference Range Interpretation Comments POC V Temp (test code = POC V Temp) 37.0 [facility] CenterProkfbuIWGKZAPOE7503-78-38 16:44:00 Test Item Value Reference Range Interpretation Comments POC V Ion Ca (test code = POC V Ion Ca) 1.20 1.05-1.25 [facility] CenterGlxzpzyNHDRHRKAZ6796-98-75 16:44:00 Test Item Value Reference Range Interpretation Comments POC V K (test code = POC V K) 4.0 3.5-5.1 [facility] CenterJhwedulPSJDEJMSP5353-60-80 16:44:00 Test Item Value Reference Range Interpretation Comments POC V Na (test code = POC V Na) 130 135-145 [facility] CenterEppuwadOEQAMTYTZ0312-62-38 16:44:00 Test Item Value Reference Range Interpretation Comments POC V LA (test code = POC V LA) 1.1 0.5-2.2 [facility] CenterAebafndYQCTDPWRO9578-64-02 16:44:00 Test Item Value Reference Range Interpretation Comments POC V pH (test code = POC V pH) 7.41 1 7.28-7.42 [facility] CenterFuwzdghGUJDZJXGX5046-96-52 16:44:00 Test Item Value Reference Range Interpretation Comments POC V PCO2 (test code = POC V PCO2) 40 38-52 [facility] CenterPiqltrlJQUZLFMZJ2928-12-99 16:44:00 Test Item Value Reference Range Interpretation Comments POC V PO2 (test code = POC V PO2) 41 20-49 [facility] CenterTokhgkkIUPFKDHSF9857-52-15 16:44:00 Test Item Value Reference Range Interpretation Comments POC V HCO3 (test code = POC V HCO3) 25 22-26 [facility] CenterKcgvgzjTCXMLUHWN9825-56-53 16:44:00 Test Item Value Reference Range Interpretation Comments POC V BE (test code = POC V BE) 1 -2-2 [facility] CenterDpqtrisDPRXUCFFW2600-18-76 16:44:00 Test Item Value Reference Range Interpretation Comments POC V O2 Sat (calc) (test code = POC V 76.8 40.0-70.0 O2 Sat (calc)) [facility] CenterEugrcanYXIKEGAOT7066-98-85 16:44:00 Test Item Value Reference Range Interpretation Comments POC V Hgb Tot (test code = POC V Hgb 9.6 12.0-16.0 Tot) [facility] CenterNbkznuaXZMFOGZEK2507-94-09 16:44:00 Test Item Value Reference Range Interpretation Comments POC V Glu (test code = POC V Glu) 185 70-99 [facility] CenterSxnkosvPXOYCOZMF2861-36-12 16:44:00 Test Item Value Reference Range Interpretation Comments POC V Hct (calc) (test code = POC V Hct 29.0 36.0-48.0 (calc)) [facility] CenterRlynypcVVBYMEAER5621-72-05 16:44:00 Test Item Value Reference Range Interpretation Comments POC V Cl (test code = POC V Cl) 100 95-109 [facility] CenterKqgwagwFDLXYCDCC8407-46-14 16:44:00 Test Item Value Reference Range Interpretation Comments POC V Ca Ion at pH 7.4 (test code = POC 1.20 1.05-1.25 V Ca Ion at pH 7.4) [facility] CenterSkstbniPYJHIODPL8483-49-36 16:44:00 Test Item Value Reference Range Interpretation Comments POC V Source (test code = POC V Source) [facility] [facility] CenterTtarczoCYPFHNDVV4113-88-87 16:44:00 Test Item Value Reference Range Interpretation Comments POC V Temp (test code = POC V Temp) 37.0 [facility] CenterBdmqsrtYADADAIJS2209-09-93 16:44:00 Test Item Value Reference Range Interpretation Comments POC V Ion Ca (test code = POC V Ion Ca) 1.20 1.05-1.25 [facility] CenterEiamczwDAGVAJCDC1510-56-22 16:44:00 Test Item Value Reference Range Interpretation Comments POC V K (test code = POC V K) 4.0 3.5-5.1 [facility] CenterVbbfhpwABEZXOIXT3657-03-66 16:44:00 Test Item Value Reference Range Interpretation Comments POC V Na (test code = POC V Na) 130 135-145 [facility] CenterTloixldYZEPINMNW7368-80-10 16:44:00 Test Item Value Reference Range Interpretation Comments POC V LA (test code = POC V LA) 1.1 0.5-2.2 [facility] CenterIagcaexFECDPWICS7935-30-82 16:44:00 Test Item Value Reference Range Interpretation Comments POC V pH (test code = POC V pH) 7.41 1 7.28-7.42 [facility] CenterWfjvnpkONETSRRTZ1097-08-02 16:44:00 Test Item Value Reference Range Interpretation Comments POC V PCO2 (test code = POC V PCO2) 40 38-52 [facility] CenterQnnkzvjZWQSLDSDK3887-99-32 16:44:00 Test Item Value Reference Range Interpretation Comments POC V PO2 (test code = POC V PO2) 41 20-49 [facility] CenterAeklgluFSUMGBBPH1122-56-98 16:44:00 Test Item Value Reference Range Interpretation Comments POC V HCO3 (test code = POC V HCO3) 25 22-26 [facility] CenterLrmatngKVMKCKNZJ3439-64-48 16:44:00 Test Item Value Reference Range Interpretation Comments POC V BE (test code = POC V BE) 1 -2-2 [facility] CenterVfxsjbuTZSVVUXRQ0962-25-14 16:44:00 Test Item Value Reference Range Interpretation Comments POC V O2 Sat (calc) (test code = POC V 76.8 40.0-70.0 O2 Sat (calc)) [facility] CenterSvuwmsyCSRVVHOIL0889-60-65 16:44:00 Test Item Value Reference Range Interpretation Comments POC V Hgb Tot (test code = POC V Hgb 9.6 12.0-16.0 Tot) [facility] CenterMvwhntrLVTNTHUMW7221-10-80 16:44:00 Test Item Value Reference Range Interpretation Comments POC V Glu (test code = POC V Glu) 185 70-99 [facility] CenterKlycayoBMPVYLSYD3577-19-93 16:44:00 Test Item Value Reference Range Interpretation Comments POC V Hct (calc) (test code = POC V Hct 29.0 36.0-48.0 (calc)) [facility] CenterZazgcbjUJWXFUWJX4771-00-92 16:44:00 Test Item Value Reference Range Interpretation Comments POC V Cl (test code = POC V Cl) 100 95-109 [facility] CenterEcjrzevSTCNMXVSI3817-63-08 16:44:00 Test Item Value Reference Range Interpretation Comments POC V Ca Ion at pH 7.4 (test code = POC 1.20 1.05-1.25 V Ca Ion at pH 7.4) [facility] CenterEpcqkojNQCOHKCOY3418-96-19 16:44:00 Test Item Value Reference Range Interpretation Comments POC V Source (test code = POC V Source) [place] [facility] CenterRuxkptiMUUFMEDBM4186-83-49 16:44:00 Test Item Value Reference Range Interpretation Comments POC V Temp (test code = POC V Temp) 37.0 [facility] CenterLqqhkipPQUXGUISX0949-18-89 16:44:00 Test Item Value Reference Range Interpretation Comments POC V Ion Ca (test code = POC V Ion Ca) 1.20 1.05-1.25 [facility] CenterOceflmqXBZPCRGUO1390-21-59 16:44:00 Test Item Value Reference Range Interpretation Comments POC V K (test code = POC V K) 4.0 3.5-5.1 [facility] CenterXqnjxshGMHXULVIV9662-56-57 16:44:00 Test Item Value Reference Range Interpretation Comments POC V Na (test code = POC V Na) 130 135-145 [facility] CenterOqjngqaJGWESXRVJ7842-27-28 16:44:00 Test Item Value Reference Range Interpretation Comments POC V LA (test code = POC V LA) 1.1 0.5-2.2 [facility] CenterHlnnryrVTFLNEJJX7521-08-40 16:44:00 Test Item Value Reference Range Interpretation Comments POC V pH (test code = POC V pH) 7.41 1 7.28-7.42 [facility] CenterNmoauyaSYNANQRZZ2827-62-95 16:44:00 Test Item Value Reference Range Interpretation Comments POC V PCO2 (test code = POC V PCO2) 40 38-52 [place] 223672-10-24 16:44:00 Test Item Value Reference Range Interpretation Comments POC V PO2 (test code = POC V PO2) 41 20-49 [place] 223672-10-24 16:44:00 Test Item Value Reference Range Interpretation Comments POC V HCO3 (test code = POC V HCO3) 25 22-26 [facility] CenterMxghtyeRWHTXRHSY5221-17-46 16:44:00 Test Item Value Reference Range Interpretation Comments POC V BE (test code = POC V BE) 1 -2-2 [facility] CenterDzkcsrjTGNSOBQDA0284-75-01 16:44:00 Test Item Value Reference Range Interpretation Comments POC V O2 Sat (calc) (test code = POC V 76.8 40.0-70.0 O2 Sat (calc)) [facility] CenterGbgxdzgZDCMQYJNC1137-46-70 16:44:00 Test Item Value Reference Range Interpretation Comments POC V Hgb Tot (test code = POC V Hgb 9.6 12.0-16.0 Tot) [facility] CenterShmjhogJNFTEUBTR5099-69-05 16:44:00 Test Item Value Reference Range Interpretation Comments POC V Glu (test code = POC V Glu) 185 70-99 [facility] CenterNhmlzxkXKBDBSVEJ0256-39-76 16:44:00 Test Item Value Reference Range Interpretation Comments POC V Hct (calc) (test code = POC V Hct 29.0 36.0-48.0 (calc)) [facility] CenterBjhkjihBKZYWKVHQ0370-28-97 16:44:00 Test Item Value Reference Range Interpretation Comments POC V Cl (test code = POC V Cl) 100 95-109 [facility] CenterFtvwovySYEINEAHV9135-84-77 16:44:00 Test Item Value Reference Range Interpretation Comments POC V Ca Ion at pH 7.4 (test code = POC 1.20 1.05-1.25 V Ca Ion at pH 7.4) [facility] CenterRavhhmwGWJEAFTIF0760-16-11 16:44:00 Test Item Value Reference Range Interpretation Comments POC V Source (test code = POC V Source) [place] [facility] CenterWeqkojtGKDFORZXJ5496-92-90 16:44:00 Test Item Value Reference Range Interpretation Comments POC V Temp (test code = POC V Temp) 37.0 [facility] CenterJffxxnsQDMHORVVO6917-55-10 16:44:00 Test Item Value Reference Range Interpretation Comments POC V Ion Ca (test code = POC V Ion Ca) 1.20 1.05-1.25 [facility] CenterDyyezphPCYUQOYXD6454-10-73 16:44:00 Test Item Value Reference Range Interpretation Comments POC V K (test code = POC V K) 4.0 3.5-5.1 [facility] CenterZvleewkVJCGTYCOB8540-69-86 16:44:00 Test Item Value Reference Range Interpretation Comments POC V Na (test code = POC V Na) 130 135-145 [facility] CenterJojziggONFQQCKTS1032-29-72 16:44:00 Test Item Value Reference Range Interpretation Comments POC V LA (test code = POC V LA) 1.1 0.5-2.2 [facility] CenterPzdjzamGGXEPDGKY3990-24-21 16:44:00 Test Item Value Reference Range Interpretation Comments POC V pH (test code = POC V pH) 7.41 1 7.28-7.42 [facility] CenterMzvkmoeDBYSFMYBS5544-59-49 16:44:00 Test Item Value Reference Range Interpretation Comments POC V PCO2 (test code = POC V PCO2) 40 38-52 [facility] CenterAhmjjmaAOCSKHQFE1595-35-94 16:44:00 Test Item Value Reference Range Interpretation Comments POC V PO2 (test code = POC V PO2) 41 20-49 [facility] CenterXmdjdcuCGPQDPEEB4493-25-22 16:44:00 Test Item Value Reference Range Interpretation Comments POC V HCO3 (test code = POC V HCO3) 25 22-26 [facility] CenterLebexbwSECPHJROD9600-80-70 16:44:00 Test Item Value Reference Range Interpretation Comments POC V BE (test code = POC V BE) 1 -2-2 [facility] CenterNjzdxepQZLDYVURQ5224-41-92 16:44:00 Test Item Value Reference Range Interpretation Comments POC V O2 Sat (calc) (test code = POC V 76.8 40.0-70.0 O2 Sat (calc)) [facility] CenterAkwjgkbCEMQMYRMN5524-43-54 16:44:00 Test Item Value Reference Range Interpretation Comments POC V Hgb Tot (test code = POC V Hgb 9.6 12.0-16.0 Tot) [facility] CenterDsxivvmOATRJAQEH3881-08-00 16:44:00 Test Item Value Reference Range Interpretation Comments POC V Glu (test code = POC V Glu) 185 70-99 [facility] CenterNygfuurTEEWKECTZ3297-24-15 16:44:00 Test Item Value Reference Range Interpretation Comments POC V Hct (calc) (test code = POC V Hct 29.0 36.0-48.0 (calc)) [facility] CenterErnhotdGRCBROXOE0979-15-49 16:44:00 Test Item Value Reference Range Interpretation Comments POC V Cl (test code = POC V Cl) 100 95-109 [facility] CenterHxnxqzsGIPGYJYFC4466-59-91 16:44:00 Test Item Value Reference Range Interpretation Comments POC V Ca Ion at pH 7.4 (test code = POC 1.20 1.05-1.25 V Ca Ion at pH 7.4) [facility] CenterIdgtwteVDCHOVSMQ1252-00-58 16:44:00 Test Item Value Reference Range Interpretation Comments POC V Source (test code = POC V Source) [place] [facility] CenterGvcakqlYLZBULIWW2652-59-99 16:44:00 Test Item Value Reference Range Interpretation Comments POC V Temp (test code = POC V Temp) 37.0 [facility] CenterQgsiazkTQHWJOMAL8207-48-92 16:44:00 Test Item Value Reference Range Interpretation Comments POC V Ion Ca (test code = POC V Ion Ca) 1.20 1.05-1.25 [facility] CenterOdktobyXJIMICEFY5944-25-73 16:44:00 Test Item Value Reference Range Interpretation Comments POC V K (test code = POC V K) 4.0 3.5-5.1 [facility] CenterEzubptyLEMSNQESO3942-67-91 16:44:00 Test Item Value Reference Range Interpretation Comments POC V Na (test code = POC V Na) 130 135-145 [facility] CenterFhwiqlcRMRXPZPVA4168-95-15 16:44:00 Test Item Value Reference Range Interpretation Comments POC V LA (test code = POC V LA) 1.1 0.5-2.2 [facility] CenterPtchprrKCPICDKNA5038-04-50 16:44:00 Test Item Value Reference Range Interpretation Comments POC V pH (test code = POC V pH) 7.41 1 7.28-7.42 [facility] CenterQxnopyyFHGMQDYUB4195-51-86 16:44:00 Test Item Value Reference Range Interpretation Comments POC V PCO2 (test code = POC V PCO2) 40 38-52 [facility] CenterBmnwjujBVSGBZTZZ1134-22-90 16:44:00 Test Item Value Reference Range Interpretation Comments POC V PO2 (test code = POC V PO2) 41 20-49 [facility] CenterXfgpahiIXQIVHTDG2202-08-59 16:44:00 Test Item Value Reference Range Interpretation Comments POC V HCO3 (test code = POC V HCO3) 25 22-26 [facility] CenterPepbyymCHLCVOSSK2080-71-34 16:44:00 Test Item Value Reference Range Interpretation Comments POC V BE (test code = POC V BE) 1 -2-2 [facility] CenterVtwndfdWXKZFYEZK9599-63-12 16:44:00 Test Item Value Reference Range Interpretation Comments POC V O2 Sat (calc) (test code = POC V 76.8 40.0-70.0 O2 Sat (calc)) [facility] CenterVodpfndWDRNZINJB0602-19-26 16:44:00 Test Item Value Reference Range Interpretation Comments POC V Hgb Tot (test code = POC V Hgb 9.6 12.0-16.0 Tot) [facility] CenterFkcqarnCVUDIWPGY5070-54-81 16:44:00 Test Item Value Reference Range Interpretation Comments POC V Glu (test code = POC V Glu) 185 70-99 [facility] CenterXwjcnwqKKDGAVFQF2177-26-82 16:44:00 Test Item Value Reference Range Interpretation Comments POC V Hct (calc) (test code = POC V Hct 29.0 36.0-48.0 (calc)) [facility] CenterRkapnitHQCJGKZMZ0349-84-26 16:44:00 Test Item Value Reference Range Interpretation Comments POC V Cl (test code = POC V Cl) 100 95-109 [facility] CenterAuftfqzDXRZAPWDC3711-49-06 16:44:00 Test Item Value Reference Range Interpretation Comments POC V Ca Ion at pH 7.4 (test code = POC 1.20 1.05-1.25 V Ca Ion at pH 7.4) [facility] CenterIadtchlHAFFLYYPO5117-75-36 16:44:00 Test Item Value Reference Range Interpretation Comments POC V Source (test code = POC V Source) [place] [facility] CenterRlpilfeCPHPMJKSZ2198-86-92 16:44:00 Test Item Value Reference Range Interpretation Comments POC V Temp (test code = POC V Temp) 37.0 [facility] CenterFtzdptfGCBWQJZQY1529-40-00 16:44:00 Test Item Value Reference Range Interpretation Comments POC V Ion Ca (test code = POC V Ion Ca) 1.20 1.05-1.25 [facility] CenterVpwnomnZYHPBAPBY1392-70-19 16:44:00 Test Item Value Reference Range Interpretation Comments POC V K (test code = POC V K) 4.0 3.5-5.1 [facility] CenterBjpqymxIXBJOTZZC7544-73-23 16:44:00 Test Item Value Reference Range Interpretation Comments POC V Na (test code = POC V Na) 130 135-145 [facility] CenterQzxwehhKHASBUAQG3080-13-89 16:44:00 Test Item Value Reference Range Interpretation Comments POC V LA (test code = POC V LA) 1.1 0.5-2.2 [place] 223672-10-24 16:44:00 Test Item Value Reference Range Interpretation Comments POC V pH (test code = POC V pH) 7.41 1 7.28-7.42 [place] 223672-10-24 16:44:00 Test Item Value Reference Range Interpretation Comments POC V PCO2 (test code = POC V PCO2) 40 38-52 [place] 223672-10-24 16:44:00 Test Item Value Reference Range Interpretation Comments POC V PO2 (test code = POC V PO2) 41 20-49 [place] [address]-10-24 16:44:00 Test Item Value Reference Range Interpretation Comments POC V HCO3 (test code = POC V HCO3) 25 22-26 [facility] CenterTvnfzazEQHHUNTWX7556-82-73 16:44:00 Test Item Value Reference Range Interpretation Comments POC V BE (test code = POC V BE) 1 -2-2 [facility] CenterTvooogdKDNFQFSSR0655-96-33 16:44:00 Test Item Value Reference Range Interpretation Comments POC V O2 Sat (calc) (test code = POC V 76.8 40.0-70.0 O2 Sat (calc)) [facility] CenterBcvrlyiBDVUTCFRU0903-42-29 16:44:00 Test Item Value Reference Range Interpretation Comments POC V Hgb Tot (test code = POC V Hgb 9.6 12.0-16.0 Tot) [facility] CenterKgojublTQECPWXQY6741-87-63 16:44:00 Test Item Value Reference Range Interpretation Comments POC V Glu (test code = POC V Glu) 185 70-99 [place] 223672-10-24 16:44:00 Test Item Value Reference Range Interpretation Comments POC V Hct (calc) (test code = POC V Hct 29.0 36.0-48.0 (calc)) [facility] CenterPsyriuqJGKTUZHGB9397-76-90 16:44:00 Test Item Value Reference Range Interpretation Comments POC V Cl (test code = POC V Cl) 100 95-109 [facility] CenterKagemtrBVCJFTQLT1521-93-50 16:44:00 Test Item Value Reference Range Interpretation Comments POC V Ca Ion at pH 7.4 (test code = POC 1.20 1.05-1.25 V Ca Ion at pH 7.4) [facility] CenterGctxljaFSAZLLQMH1846-82-55 16:44:00 Test Item Value Reference Range Interpretation Comments POC V Source (test code = POC V Source) [facility]2022-10-24 16:44:00 Test Item Value Reference Range Interpretation Comments POC V Temp (test code = POC V Temp) 37.0 [facility] CenterActmkkoVWWDEKFJX9298-61-50 16:44:00 Test Item Value Reference Range Interpretation Comments POC V Ion Ca (test code = POC V Ion Ca) 1.20 1.05-1.25 [facility] CenterSygdwvpTFAVNEIBW1713-39-91 16:44:00 Test Item Value Reference Range Interpretation Comments POC V K (test code = POC V K) 4.0 3.5-5.1 [facility] CenterXgnjhdtSDTCIZFQU3788-22-42 16:44:00 Test Item Value Reference Range Interpretation Comments POC V Na (test code = POC V Na) 130 135-145 [facility] CenterOatncgmKHYXXFHPI0503-23-56 16:44:00 Test Item Value Reference Range Interpretation Comments POC V Source (test code = POC V Source) [facility]2022-10-24 16:44:00 Test Item Value Reference Range Interpretation Comments POC V Temp (test code = POC V Temp) 37.0 [facility] CenterWgfwuiaVPUDYRXEK3176-67-02 16:44:00 Test Item Value Reference Range Interpretation Comments POC V Ion Ca (test code = POC V Ion Ca) 1.20 1.05-1.25 [facility] CenterYqefvuoKZMASGVFS7894-92-10 16:44:00 Test Item Value Reference Range Interpretation Comments POC V K (test code = POC V K) 4.0 3.5-5.1 [facility] CenterBcoatmzMWHDKIMGY4025-54-15 16:44:00 Test Item Value Reference Range Interpretation Comments POC V Na (test code = POC V Na) 130 135-145 [facility] CenterZdyicrlLZCIDCCVQ3336-79-84 16:44:00 Test Item Value Reference Range Interpretation Comments POC V LA (test code = POC V LA) 1.1 0.5-2.2 [facility] CenterUoxxabfIJPYAXNYX0801-07-26 16:44:00 Test Item Value Reference Range Interpretation Comments POC V pH (test code = POC V pH) 7.41 1 7.28-7.42 [facility] CenterNqmqpmfEDPAAEFRY6661-40-51 16:44:00 Test Item Value Reference Range Interpretation Comments POC V LA (test code = POC V LA) 1.1 0.5-2.2 [facility] CenterLeswaliQEJLEJJZV5953-75-32 16:44:00 Test Item Value Reference Range Interpretation Comments POC V PCO2 (test code = POC V PCO2) 40 38-52 [facility] CenterOrhvhygVTXXZCKZV5273-92-91 16:44:00 Test Item Value Reference Range Interpretation Comments POC V PO2 (test code = POC V PO2) 41 20-49 [facility] CenterScsqhaeJBQOOGDCH7667-87-72 16:44:00 Test Item Value Reference Range Interpretation Comments POC V HCO3 (test code = POC V HCO3) 25 22-26 [facility] CenterVgskjvyATPRWFEIV2712-26-44 16:44:00 Test Item Value Reference Range Interpretation Comments POC V BE (test code = POC V BE) 1 -2-2 [facility] CenterWymrdmwPSBTKDKSW5642-78-62 16:44:00 Test Item Value Reference Range Interpretation Comments POC V O2 Sat (calc) (test code = POC V 76.8 40.0-70.0 O2 Sat (calc)) [facility] CenterMtnlbnaWYIIUDJWI5347-84-02 16:44:00 Test Item Value Reference Range Interpretation Comments POC V Hgb Tot (test code = POC V Hgb 9.6 12.0-16.0 Tot) [facility] CenterGskptimZSCSQPHAD2623-39-42 16:44:00 Test Item Value Reference Range Interpretation Comments POC V Glu (test code = POC V Glu) 185 70-99 [facility] CenterSakzgleHVCZGADMJ8005-05-22 16:44:00 Test Item Value Reference Range Interpretation Comments POC V Hct (calc) (test code = POC V Hct 29.0 36.0-48.0 (calc)) [facility] CenterVetzjodVGBZGMCQK2987-02-00 16:44:00 Test Item Value Reference Range Interpretation Comments POC V Cl (test code = POC V Cl) 100 95-109 [facility] CenterFdxcdggLRQDPXODR1415-54-71 16:44:00 Test Item Value Reference Range Interpretation Comments POC V Ca Ion at pH 7.4 (test code = POC 1.20 1.05-1.25 V Ca Ion at pH 7.4) [facility] CenterKxwkhwhSEERMSFEL2266-07-56 16:44:00 Test Item Value Reference Range Interpretation Comments POC V pH (test code = POC V pH) 7.41 1 7.28-7.42 [facility] CenterOvyjongVDDOYXYIK2946-29-78 16:44:00 Test Item Value Reference Range Interpretation Comments POC V PCO2 (test code = POC V PCO2) 40 38-52 [facility] CenterNsxkntgQOMRJSEYQ0251-40-16 16:44:00 Test Item Value Reference Range Interpretation Comments POC V PO2 (test code = POC V PO2) 41 20-49 [facility] CenterEbcqtgwOOKVGHPNL4416-20-75 16:44:00 Test Item Value Reference Range Interpretation Comments POC V HCO3 (test code = POC V HCO3) 25 22-26 [facility] CenterClrmbslZFTFIOZHQ7593-96-42 16:44:00 Test Item Value Reference Range Interpretation Comments POC V BE (test code = POC V BE) 1 -2-2 [facility] CenterOhjqvdzGZCFIGQXZ7376-42-94 16:44:00 Test Item Value Reference Range Interpretation Comments POC V O2 Sat (calc) (test code = POC V 76.8 40.0-70.0 O2 Sat (calc)) [facility] CenterQupuwxvETIBPXOBN2512-84-20 16:44:00 Test Item Value Reference Range Interpretation Comments POC V Hgb Tot (test code = POC V Hgb 9.6 12.0-16.0 Tot) [facility] CenterScmaybaGIUYCKGTR5381-35-88 16:44:00 Test Item Value Reference Range Interpretation Comments POC V Glu (test code = POC V Glu) 185 70-99 [facility] CenterEkmiwssFRAPOSHUW1137-58-49 16:44:00 Test Item Value Reference Range Interpretation Comments POC V Hct (calc) (test code = POC V Hct 29.0 36.0-48.0 (calc)) [facility] CenterJodeclaMJLIISFVG3860-43-01 16:44:00 Test Item Value Reference Range Interpretation Comments POC V Cl (test code = POC V Cl) 100 95-109 [facility] CenterBnpzkkuVBIRJYNUJ6348-84-33 16:44:00 Test Item Value Reference Range Interpretation Comments POC V Ca Ion at pH 7.4 (test code = POC 1.20 1.05-1.25 V Ca Ion at pH 7.4) [facility] CenterJnypdkiNYYGPRTJE3563-69-34 16:44:00 Test Item Value Reference Range Interpretation Comments POC V Source (test code = POC V Source) [facility] CenterHeqwrguERGYJUIYX5423-28-04 16:44:00 Test Item Value Reference Range Interpretation Comments POC V Temp (test code = POC V Temp) 37.0 [facility] CenterHyurqtlGKHYJKGTG8302-96-54 16:44:00 Test Item Value Reference Range Interpretation Comments POC V Ion Ca (test code = POC V Ion Ca) 1.20 1.05-1.25 [facility] CenterLkeygucPBTMLRSOT9909-60-31 16:44:00 Test Item Value Reference Range Interpretation Comments POC V K (test code = POC V K) 4.0 3.5-5.1 [facility] CenterAdpysnlYFHMJUCPB1093-63-97 16:44:00 Test Item Value Reference Range Interpretation Comments POC V Na (test code = POC V Na) 130 135-145 [facility] CenterZgitfwlFDYQPHQLR8034-06-07 16:44:00 Test Item Value Reference Range Interpretation Comments POC V LA (test code = POC V LA) 1.1 0.5-2.2 [facility] CenterBdrdwfiLRSOOCRKO0783-14-51 16:44:00 Test Item Value Reference Range Interpretation Comments POC V pH (test code = POC V pH) 7.41 1 7.28-7.42 [facility] CenterKfcxuseLFFGEGAZB8425-86-03 16:44:00 Test Item Value Reference Range Interpretation Comments POC V PCO2 (test code = POC V PCO2) 40 38-52 [facility] CenterKidxdubIISFGHFMH0253-38-62 16:44:00 Test Item Value Reference Range Interpretation Comments POC V PO2 (test code = POC V PO2) 41 20-49 [facility] CenterCceralbUWNUDXWBF8946-48-48 16:44:00 Test Item Value Reference Range Interpretation Comments POC V HCO3 (test code = POC V HCO3) 25 22-26 [facility] CenterZychjlqGUKZGLFPK5241-98-59 16:44:00 Test Item Value Reference Range Interpretation Comments POC V BE (test code = POC V BE) 1 -2-2 [facility] CenterZdjbrznELXUQORMI0850-92-69 16:44:00 Test Item Value Reference Range Interpretation Comments POC V O2 Sat (calc) (test code = POC V 76.8 40.0-70.0 O2 Sat (calc)) [facility] CenterYzcgspeWQHWDXGSF4426-82-10 16:44:00 Test Item Value Reference Range Interpretation Comments POC V Hgb Tot (test code = POC V Hgb 9.6 12.0-16.0 Tot) [facility] CenterWfgomxwEVYFDHKTG5789-39-17 16:44:00 Test Item Value Reference Range Interpretation Comments POC V Glu (test code = POC V Glu) 185 70-99 [facility] CenterZjpifhhMLJQLBHRB0600-92-93 16:44:00 Test Item Value Reference Range Interpretation Comments POC V Hct (calc) (test code = POC V Hct 29.0 36.0-48.0 (calc)) [facility] CenterVsouqwlDEPHCUPIJ0594-67-99 16:44:00 Test Item Value Reference Range Interpretation Comments POC V Cl (test code = POC V Cl) 100 95-109 [facility] CenterQumjgerCKBBUMHJN6307-25-39 16:44:00 Test Item Value Reference Range Interpretation Comments POC V Ca Ion at pH 7.4 (test code = POC 1.20 1.05-1.25 V Ca Ion at pH 7.4) [facility] CenterUnfvwtiRGUJDHJPQ7973-05-48 16:44:00 Test Item Value Reference Range Interpretation Comments POC V Source (test code = POC V Source) [place] [facility] CenterFmummzeKXLKWSMRR3503-19-48 16:44:00 Test Item Value Reference Range Interpretation Comments POC V Temp (test code = POC V Temp) 37.0 [facility] CenterLjpyzrlBYCEIGPTZ3017-93-23 16:44:00 Test Item Value Reference Range Interpretation Comments POC V Ion Ca (test code = POC V Ion Ca) 1.20 1.05-1.25 [facility] CenterOfvfjezJCGVYKNDX2726-50-74 16:44:00 Test Item Value Reference Range Interpretation Comments POC V K (test code = POC V K) 4.0 3.5-5.1 [facility] CenterOhnuewkUIXBLNBIN1015-59-33 16:44:00 Test Item Value Reference Range Interpretation Comments POC V Na (test code = POC V Na) 130 135-145 [facility] CenterSsqzieePCWGMCINI6765-38-33 16:44:00 Test Item Value Reference Range Interpretation Comments POC V LA (test code = POC V LA) 1.1 0.5-2.2 [place] 223672-10-24 16:44:00 Test Item Value Reference Range Interpretation Comments POC V pH (test code = POC V pH) 7.41 1 7.28-7.42 [facility] CenterTcdqhwrAEGVWVXFR2888-80-60 16:44:00 Test Item Value Reference Range Interpretation Comments POC V PCO2 (test code = POC V PCO2) 40 38-52 [facility] CenterUdljxmsWQDODDIDM5385-20-59 16:44:00 Test Item Value Reference Range Interpretation Comments POC V PO2 (test code = POC V PO2) 41 20-49 [facility] CenterPqgkckmSUHXWSQVZ0273-53-93 16:44:00 Test Item Value Reference Range Interpretation Comments POC V HCO3 (test code = POC V HCO3) 25 22-26 [facility] CenterUecyzjzTHTYFFYNU1736-25-15 16:44:00 Test Item Value Reference Range Interpretation Comments POC V BE (test code = POC V BE) 1 -2-2 [facility] CenterRvvbvsoIAMXCOYNX8487-11-50 16:44:00 Test Item Value Reference Range Interpretation Comments POC V O2 Sat (calc) (test code = POC V 76.8 40.0-70.0 O2 Sat (calc)) [facility] CenterWlpbwmoFWNNNZGTM0333-52-62 16:44:00 Test Item Value Reference Range Interpretation Comments POC V Hgb Tot (test code = POC V Hgb 9.6 12.0-16.0 Tot) [facility] CenterMaucuikYRERRMAWO1998-73-09 16:44:00 Test Item Value Reference Range Interpretation Comments POC V Glu (test code = POC V Glu) 185 70-99 [facility] CenterEwfdmttVURYFLFXE1651-28-46 16:44:00 Test Item Value Reference Range Interpretation Comments POC V Hct (calc) (test code = POC V Hct 29.0 36.0-48.0 (calc)) [facility] CenterHofqqwdBGIMEIKUO8627-79-89 16:44:00 Test Item Value Reference Range Interpretation Comments POC V Cl (test code = POC V Cl) 100 95-109 [facility] CenterBiihcfkBLZZACQIC0848-34-74 16:44:00 Test Item Value Reference Range Interpretation Comments POC V Ca Ion at pH 7.4 (test code = POC 1.20 1.05-1.25 V Ca Ion at pH 7.4) [facility] CenterWjchdxzEUEYWZFEM7320-65-71 16:44:00 Test Item Value Reference Range Interpretation Comments POC V Source (test code = POC V Source) [facility] [facility] CenterPzgogynAGJYKBCPA5404-69-89 16:44:00 Test Item Value Reference Range Interpretation Comments POC V Temp (test code = POC V Temp) 37.0 [place] 223672-10-24 16:44:00 Test Item Value Reference Range Interpretation Comments POC V Ion Ca (test code = POC V Ion Ca) 1.20 1.05-1.25 [facility] CenterAavprhySNUIEEFZV1111-63-70 16:44:00 Test Item Value Reference Range Interpretation Comments POC V K (test code = POC V K) 4.0 3.5-5.1 [facility] CenterByvnmflGKZZSRWXD2600-56-38 16:44:00 Test Item Value Reference Range Interpretation Comments POC V Na (test code = POC V Na) 130 135-145 [facility] CenterUmvmqtcJJSHIPEKJ7550-67-97 16:44:00 Test Item Value Reference Range Interpretation Comments POC V LA (test code = POC V LA) 1.1 0.5-2.2 [facility] CenterLnkhowgZWWMEFWTS9678-10-62 16:44:00 Test Item Value Reference Range Interpretation Comments POC V pH (test code = POC V pH) 7.41 1 7.28-7.42 [facility] CenterMlpydewLAHDBCRFL1434-56-61 16:44:00 Test Item Value Reference Range Interpretation Comments POC V PCO2 (test code = POC V PCO2) 40 38-52 [facility] CenterKwdhqrqTYSMOABUQ5412-51-83 16:44:00 Test Item Value Reference Range Interpretation Comments POC V PO2 (test code = POC V PO2) 41 20-49 [facility] CenterOldmxahVPRUYYQIS4514-28-47 16:44:00 Test Item Value Reference Range Interpretation Comments POC V HCO3 (test code = POC V HCO3) 25 22-26 [facility] CenterJzjewvuRFCQFGKJM0522-75-32 16:44:00 Test Item Value Reference Range Interpretation Comments POC V BE (test code = POC V BE) 1 -2-2 [facility] CenterTearmadLMYLCZQOM4295-74-93 16:44:00 Test Item Value Reference Range Interpretation Comments POC V O2 Sat (calc) (test code = POC V 76.8 40.0-70.0 O2 Sat (calc)) [facility] CenterWpeehakAIBFLJMVQ3366-85-87 16:44:00 Test Item Value Reference Range Interpretation Comments POC V Hgb Tot (test code = POC V Hgb 9.6 12.0-16.0 Tot) [facility] CenterKmvnnqrYGUIPNNUO2196-51-42 16:44:00 Test Item Value Reference Range Interpretation Comments POC V Glu (test code = POC V Glu) 185 70-99 [facility] CenterQsekixaHSCZJZAFH3845-79-11 16:44:00 Test Item Value Reference Range Interpretation Comments POC V Hct (calc) (test code = POC V Hct 29.0 36.0-48.0 (calc)) [facility] CenterAlebsncJENOQFVKO5915-97-04 16:44:00 Test Item Value Reference Range Interpretation Comments POC V Cl (test code = POC V Cl) 100 95-109 [facility] CenterOclksqtCGKRELHVS5256-88-46 16:44:00 Test Item Value Reference Range Interpretation Comments POC V Ca Ion at pH 7.4 (test code = POC 1.20 1.05-1.25 V Ca Ion at pH 7.4) [facility] CenterWnfgutmBBADBWWFW7735-71-03 16:44:00 Test Item Value Reference Range Interpretation Comments POC V Source (test code = POC V Source) [place] [facility] CenterUtvswdpKMWOSYMHU8134-43-39 16:44:00 Test Item Value Reference Range Interpretation Comments POC V Temp (test code = POC V Temp) 37.0 [facility] CenterYfflidwXGURUELAQ2320-31-46 16:44:00 Test Item Value Reference Range Interpretation Comments POC V Ion Ca (test code = POC V Ion Ca) 1.20 1.05-1.25 [facility] CenterNqkmuvyXYWRXJFBU8279-13-39 16:44:00 Test Item Value Reference Range Interpretation Comments POC V K (test code = POC V K) 4.0 3.5-5.1 [facility] CenterRbvvlpdRDUXMHODV1720-13-43 16:44:00 Test Item Value Reference Range Interpretation Comments POC V Na (test code = POC V Na) 130 135-145 [facility] CenterHladhdjCXZCAZHAD0106-82-66 16:44:00 Test Item Value Reference Range Interpretation Comments POC V LA (test code = POC V LA) 1.1 0.5-2.2 [place] 223672-10-24 16:44:00 Test Item Value Reference Range Interpretation Comments POC V pH (test code = POC V pH) 7.41 1 7.28-7.42 [place] 223672-10-24 16:44:00 Test Item Value Reference Range Interpretation Comments POC V PCO2 (test code = POC V PCO2) 40 38-52 [facility] CenterTvhcdbhVMKCIRMVL3357-21-23 16:44:00 Test Item Value Reference Range Interpretation Comments POC V PO2 (test code = POC V PO2) 41 20-49 [facility] CenterDinzryzNFGEIAHOX5464-66-47 16:44:00 Test Item Value Reference Range Interpretation Comments POC V HCO3 (test code = POC V HCO3) 25 22-26 [facility] CenterKmmkqikKOFPSQNSS1807-27-70 16:44:00 Test Item Value Reference Range Interpretation Comments POC V BE (test code = POC V BE) 1 -2-2 [facility] CenterFvhnljhSPOPGFVMS6864-42-30 16:44:00 Test Item Value Reference Range Interpretation Comments POC V O2 Sat (calc) (test code = POC V 76.8 40.0-70.0 O2 Sat (calc)) [facility] CenterCeezcxtEJZZYNBRD6428-07-06 16:44:00 Test Item Value Reference Range Interpretation Comments POC V Hgb Tot (test code = POC V Hgb 9.6 12.0-16.0 Tot) [facility] CenterRxrkmcwPQSODBHBI2965-01-58 16:44:00 Test Item Value Reference Range Interpretation Comments POC V Glu (test code = POC V Glu) 185 70-99 [facility] CenterUrhwyhaTLEOPRVJD2588-29-13 16:44:00 Test Item Value Reference Range Interpretation Comments POC V Hct (calc) (test code = POC V Hct 29.0 36.0-48.0 (calc)) [facility] CenterBtiljsfZYKFYBIPJ7761-90-22 16:44:00 Test Item Value Reference Range Interpretation Comments POC V Cl (test code = POC V Cl) 100 95-109 [facility] CenterOjxdejbXPXSYREUM5275-65-03 16:44:00 Test Item Value Reference Range Interpretation Comments POC V Ca Ion at pH 7.4 (test code = POC 1.20 1.05-1.25 V Ca Ion at pH 7.4) [facility] CenterSiucjngLCUGTOQCO9346-72-13 16:44:00 Test Item Value Reference Range Interpretation Comments POC V Source (test code = POC V Source) [place] [facility] CenterQyiitdgSPPGPUJKK4097-99-93 16:44:00 Test Item Value Reference Range Interpretation Comments POC V Temp (test code = POC V Temp) 37.0 [facility] CenterBkkoefxURVEHZSVW1402-40-31 16:44:00 Test Item Value Reference Range Interpretation Comments POC V Ion Ca (test code = POC V Ion Ca) 1.20 1.05-1.25 [place] 223672-10-24 16:44:00 Test Item Value Reference Range Interpretation Comments POC V K (test code = POC V K) 4.0 3.5-5.1 [place] 223672-10-24 16:44:00 Test Item Value Reference Range Interpretation Comments POC V Na (test code = POC V Na) 130 135-145 [facility] CenterCmgfxguLWTHJCGUF2322-23-65 16:44:00 Test Item Value Reference Range Interpretation Comments POC V LA (test code = POC V LA) 1.1 0.5-2.2 [facility] CenterLmtcnyqGXWEBHAMG1368-03-19 16:44:00 Test Item Value Reference Range Interpretation Comments POC V pH (test code = POC V pH) 7.41 1 7.28-7.42 [place] [address]-10-24 16:44:00 Test Item Value Reference Range Interpretation Comments POC V PCO2 (test code = POC V PCO2) 40 38-52 [facility] CenterQiksiisLNCROSZNJ0722-11-41 16:44:00 Test Item Value Reference Range Interpretation Comments POC V PO2 (test code = POC V PO2) 41 20-49 [facility] CenterPirbjznIWACQPVVT8139-55-53 16:44:00 Test Item Value Reference Range Interpretation Comments POC V HCO3 (test code = POC V HCO3) 25 22-26 [facility] CenterKawlrrbCEKVYXMPR6347-56-43 16:44:00 Test Item Value Reference Range Interpretation Comments POC V BE (test code = POC V BE) 1 -2-2 [facility] CenterCguvnxwPALOHNHUS1896-09-81 16:44:00 Test Item Value Reference Range Interpretation Comments POC V O2 Sat (calc) (test code = POC V 76.8 40.0-70.0 O2 Sat (calc)) [facility] CenterDrhlzneSAMIXUBEK6095-97-44 16:44:00 Test Item Value Reference Range Interpretation Comments POC V Hgb Tot (test code = POC V Hgb 9.6 12.0-16.0 Tot) [facility] CenterDuuwvveMVWKHLPYU6896-05-18 16:44:00 Test Item Value Reference Range Interpretation Comments POC V Glu (test code = POC V Glu) 185 70-99 [facility] CenterWopepgzPCHPEAUUH8773-43-04 16:44:00 Test Item Value Reference Range Interpretation Comments POC V Hct (calc) (test code = POC V Hct 29.0 36.0-48.0 (calc)) [facility] CenterWqvgsxlKKBNEJGNE4479-95-69 16:44:00 Test Item Value Reference Range Interpretation Comments POC V Cl (test code = POC V Cl) 100 95-109 [place] 223672-10-24 16:44:00 Test Item Value Reference Range Interpretation Comments POC V Ca Ion at pH 7.4 (test code = POC 1.20 1.05-1.25 V Ca Ion at pH 7.4) [place] [address]-10-24 16:44:00 Test Item Value Reference Range Interpretation Comments POC V Source (test code = POC V Source) [place] [facility] CenterOmimxohGEDWFWUKX7205-54-18 16:44:00 Test Item Value Reference Range Interpretation Comments POC V Temp (test code = POC V Temp) 37.0 [facility] CenterUepxkucLAGZWUMHU3210-27-45 16:44:00 Test Item Value Reference Range Interpretation Comments POC V Ion Ca (test code = POC V Ion Ca) 1.20 1.05-1.25 [place] [address]-10-24 16:44:00 Test Item Value Reference Range Interpretation Comments POC V K (test code = POC V K) 4.0 3.5-5.1 [place] [address]-10-24 16:44:00 Test Item Value Reference Range Interpretation Comments POC V Na (test code = POC V Na) 130 135-145 [place] [address]-10-24 16:44:00 Test Item Value Reference Range Interpretation Comments POC V LA (test code = POC V LA) 1.1 0.5-2.2 [place] [address]-10-24 16:44:00 Test Item Value Reference Range Interpretation Comments POC V pH (test code = POC V pH) 7.41 1 7.28-7.42 [place] [address]-10-24 16:44:00 Test Item Value Reference Range Interpretation Comments POC V PCO2 (test code = POC V PCO2) 40 38-52 [place] [address]-10-24 16:44:00 Test Item Value Reference Range Interpretation Comments POC V PO2 (test code = POC V PO2) 41 20-49 [place] 223672-10-24 16:44:00 Test Item Value Reference Range Interpretation Comments POC V HCO3 (test code = POC V HCO3) 25 22-26 [facility] CenterNkvapjxWMARFQAPP8850-89-90 16:44:00 Test Item Value Reference Range Interpretation Comments POC V BE (test code = POC V BE) 1 -2-2 [facility] CenterOuujfpbARDNSIRDB8823-04-18 16:44:00 Test Item Value Reference Range Interpretation Comments POC V O2 Sat (calc) (test code = POC V 76.8 40.0-70.0 O2 Sat (calc)) [facility] CenterLiefkjeFANDPDMTA3085-41-88 16:44:00 Test Item Value Reference Range Interpretation Comments POC V Hgb Tot (test code = POC V Hgb 9.6 12.0-16.0 Tot) [facility] CenterMurizteGGXWGPZHP2341-63-69 16:44:00 Test Item Value Reference Range Interpretation Comments POC V Glu (test code = POC V Glu) 185 70-99 [facility] CenterUxkrayoKFXJRIIAH0735-37-77 16:44:00 Test Item Value Reference Range Interpretation Comments POC V Hct (calc) (test code = POC V Hct 29.0 36.0-48.0 (calc)) [facility] CenterGivyuzgLWLLIOIGU6896-27-48 16:44:00 Test Item Value Reference Range Interpretation Comments POC V Cl (test code = POC V Cl) 100 95-109 [facility] CenterKadrtqzJCAHKLJGF6284-59-77 16:44:00 Test Item Value Reference Range Interpretation Comments POC V Ca Ion at pH 7.4 (test code = POC 1.20 1.05-1.25 V Ca Ion at pH 7.4) [facility] CenterFamrwyyMWOFXIYLI8587-72-60 16:44:00 Test Item Value Reference Range Interpretation Comments POC V Source (test code = POC V Source) [place] [facility] CenterEjwlbttADGDGXUXU2346-67-14 16:44:00 Test Item Value Reference Range Interpretation Comments POC V Temp (test code = POC V Temp) 37.0 [facility] CenterIlsvwkrZJZXRBLYR1801-15-54 16:44:00 Test Item Value Reference Range Interpretation Comments POC V Ion Ca (test code = POC V Ion Ca) 1.20 1.05-1.25 [facility] CenterGtmkzbmOIOVJQMTS9750-42-42 16:44:00 Test Item Value Reference Range Interpretation Comments POC V K (test code = POC V K) 4.0 3.5-5.1 [facility] CenterMvcvdtrURWYBOSNC3726-16-00 16:44:00 Test Item Value Reference Range Interpretation Comments POC V Na (test code = POC V Na) 130 135-145 [facility] CenterFqkblyzXXMIJBHNC1023-15-67 16:44:00 Test Item Value Reference Range Interpretation Comments POC V LA (test code = POC V LA) 1.1 0.5-2.2 [facility] CenterDdmqduhNEGOJWZHK1398-65-79 16:44:00 Test Item Value Reference Range Interpretation Comments POC V pH (test code = POC V pH) 7.41 1 7.28-7.42 [facility] CenterKagjzitKLYVQLBDA8627-38-81 16:44:00 Test Item Value Reference Range Interpretation Comments POC V PCO2 (test code = POC V PCO2) 40 38-52 [facility] CenterVdxkdstSPUGCMUBF1496-20-36 16:44:00 Test Item Value Reference Range Interpretation Comments POC V PO2 (test code = POC V PO2) 41 20-49 [facility] CenterRvyhxwoUOFUIHSOO6256-59-88 16:44:00 Test Item Value Reference Range Interpretation Comments POC V HCO3 (test code = POC V HCO3) 25 22-26 [facility] CenterOrhijbtXZZGQVSOG6677-92-20 16:44:00 Test Item Value Reference Range Interpretation Comments POC V BE (test code = POC V BE) 1 -2-2 [facility] CenterHjzbtcxCPMOODEGJ1696-07-00 16:44:00 Test Item Value Reference Range Interpretation Comments POC V O2 Sat (calc) (test code = POC V 76.8 40.0-70.0 O2 Sat (calc)) [facility] CenterGzzcyceATIEGKIMV7163-62-24 16:44:00 Test Item Value Reference Range Interpretation Comments POC V Hgb Tot (test code = POC V Hgb 9.6 12.0-16.0 Tot) [facility] CenterNecitdpUYIHZUWJS6230-21-56 16:44:00 Test Item Value Reference Range Interpretation Comments POC V Glu (test code = POC V Glu) 185 70-99 [facility] CenterBepqmluKWOGSLHZZ0170-20-83 16:44:00 Test Item Value Reference Range Interpretation Comments POC V Hct (calc) (test code = POC V Hct 29.0 36.0-48.0 (calc)) [facility] CenterEgeiedlNFFNMOQTI1352-67-15 16:44:00 Test Item Value Reference Range Interpretation Comments POC V Cl (test code = POC V Cl) 100 95-109 [place] 223672-10-24 16:44:00 Test Item Value Reference Range Interpretation Comments POC V Ca Ion at pH 7.4 (test code = POC 1.20 1.05-1.25 V Ca Ion at pH 7.4) [facility] CenterKofdowsJIYTSFTDB2003-03-17 16:44:00 Test Item Value Reference Range Interpretation Comments POC V Source (test code = POC V Source) [place] [facility] CenterEzsqzqwBNTTLJBBW7374-06-35 16:44:00 Test Item Value Reference Range Interpretation Comments POC V Temp (test code = POC V Temp) 37.0 [facility] CenterRmlpwexFXTWQBVWQ9538-55-05 16:44:00 Test Item Value Reference Range Interpretation Comments POC V Ion Ca (test code = POC V Ion Ca) 1.20 1.05-1.25 [facility] CenterXzcifeaQWVDZIMKA7846-66-83 16:44:00 Test Item Value Reference Range Interpretation Comments POC V K (test code = POC V K) 4.0 3.5-5.1 [facility] CenterQrfhsjrKBBWPZHIX3356-77-24 16:44:00 Test Item Value Reference Range Interpretation Comments POC V Na (test code = POC V Na) 130 135-145 [facility] CenterXvzxiyaVMHHQCKWV7413-05-32 16:44:00 Test Item Value Reference Range Interpretation Comments POC V LA (test code = POC V LA) 1.1 0.5-2.2 [facility] CenterHspngxsQQARNNCOY5570-99-11 16:44:00 Test Item Value Reference Range Interpretation Comments POC V pH (test code = POC V pH) 7.41 1 7.28-7.42 [facility] CenterFbrxnqkCVYVXMSST0624-18-20 16:44:00 Test Item Value Reference Range Interpretation Comments POC V PCO2 (test code = POC V PCO2) 40 38-52 [facility] CenterSejhlvvGTVRNIRUC7967-19-90 16:44:00 Test Item Value Reference Range Interpretation Comments POC V PO2 (test code = POC V PO2) 41 20-49 [facility] CenterMsangzyICUIGWYYO3110-35-04 16:44:00 Test Item Value Reference Range Interpretation Comments POC V HCO3 (test code = POC V HCO3) 25 22-26 [facility] CenterQzjuxvdDJXACUXLK6798-28-51 16:44:00 Test Item Value Reference Range Interpretation Comments POC V BE (test code = POC V BE) 1 -2-2 [place] [address]-10-24 16:44:00 Test Item Value Reference Range Interpretation Comments POC V O2 Sat (calc) (test code = POC V 76.8 40.0-70.0 O2 Sat (calc)) [facility] CenterFmeqyywIKEGOTNJC4081-15-15 16:44:00 Test Item Value Reference Range Interpretation Comments POC V Hgb Tot (test code = POC V Hgb 9.6 12.0-16.0 Tot) [facility] CenterEuskftjBWJMTUNLB3859-65-02 16:44:00 Test Item Value Reference Range Interpretation Comments POC V Glu (test code = POC V Glu) 185 70-99 [facility] CenterYuzvurhJNMAKTOHM7219-92-32 16:44:00 Test Item Value Reference Range Interpretation Comments POC V Hct (calc) (test code = POC V Hct 29.0 36.0-48.0 (calc)) [facility] CenterDtflxnaRVOGPHIQL5246-86-22 16:44:00 Test Item Value Reference Range Interpretation Comments POC V Cl (test code = POC V Cl) 100 95-109 [facility] CenterFkdnphrZJRQPJQVB5746-81-61 16:44:00 Test Item Value Reference Range Interpretation Comments POC V Ca Ion at pH 7.4 (test code = POC 1.20 1.05-1.25 V Ca Ion at pH 7.4) [facility] CenterRiajmzwBWEUIRWIN1403-67-69 16:44:00 Test Item Value Reference Range Interpretation Comments POC V Source (test code = POC V Source) [facility] CenterJtuyqucJMKIKZNAG7999-45-81 16:44:00 Test Item Value Reference Range Interpretation Comments POC V Temp (test code = POC V Temp) 37.0 [facility] CenterYtekutyLWJIWGBJC1099-84-45 16:44:00 Test Item Value Reference Range Interpretation Comments POC V Ion Ca (test code = POC V Ion Ca) 1.20 1.05-1.25 [facility] CenterYpcneboSEOCPATNY1151-70-86 16:44:00 Test Item Value Reference Range Interpretation Comments POC V K (test code = POC V K) 4.0 3.5-5.1 [facility] CenterHbjqbutGBACFOJDG7814-55-74 16:44:00 Test Item Value Reference Range Interpretation Comments POC V Na (test code = POC V Na) 130 135-145 [facility] CenterBqjttugNDEYFLYMU0150-34-62 16:44:00 Test Item Value Reference Range Interpretation Comments POC V LA (test code = POC V LA) 1.1 0.5-2.2 [facility] CenterTibjcauCINROKWXX0426-03-31 16:44:00 Test Item Value Reference Range Interpretation Comments POC V pH (test code = POC V pH) 7.41 1 7.28-7.42 [place] 223672-10-24 16:44:00 Test Item Value Reference Range Interpretation Comments POC V PCO2 (test code = POC V PCO2) 40 38-52 [facility] CenterZhxhmoiEHUSHBVQY2364-21-64 16:44:00 Test Item Value Reference Range Interpretation Comments POC V PO2 (test code = POC V PO2) 41 20-49 [facility] CenterCticrndYPSUPHJXP0816-81-42 16:44:00 Test Item Value Reference Range Interpretation Comments POC V HCO3 (test code = POC V HCO3) 25 22-26 [facility] CenterNvajvoyOVKRMJYBO5288-78-50 16:44:00 Test Item Value Reference Range Interpretation Comments POC V BE (test code = POC V BE) 1 -2-2 [facility] CenterSctgtqtFXJBBZFAW0482-32-68 16:44:00 Test Item Value Reference Range Interpretation Comments POC V O2 Sat (calc) (test code = POC V 76.8 40.0-70.0 O2 Sat (calc)) [facility] CenterPgljnfrZECCZIEPM9574-05-11 16:44:00 Test Item Value Reference Range Interpretation Comments POC V Hgb Tot (test code = POC V Hgb 9.6 12.0-16.0 Tot) [facility] CenterKdekvveONWHHMIOA0581-18-90 16:44:00 Test Item Value Reference Range Interpretation Comments POC V Glu (test code = POC V Glu) 185 70-99 [facility] CenterRxtmuubWIEYCATWY3552-67-55 16:44:00 Test Item Value Reference Range Interpretation Comments POC V Hct (calc) (test code = POC V Hct 29.0 36.0-48.0 (calc)) [facility] CenterBgmarfvIAHZVIOKH6466-09-39 16:44:00 Test Item Value Reference Range Interpretation Comments POC V Cl (test code = POC V Cl) 100 95-109 [facility] CenterNfciexhZNEYOAHIM5993-24-41 16:44:00 Test Item Value Reference Range Interpretation Comments POC V Ca Ion at pH 7.4 (test code = POC 1.20 1.05-1.25 V Ca Ion at pH 7.4) [facility] CenterLslxupuKBOEDLFLW0688-11-82 16:44:00 Test Item Value Reference Range Interpretation Comments POC V Source (test code = POC V Source) [facility]2022-10-24 16:44:00 Test Item Value Reference Range Interpretation Comments POC V Temp (test code = POC V Temp) 37.0 [facility] CenterKsxdopuTHUXXUWOD3236-23-46 16:44:00 Test Item Value Reference Range Interpretation Comments POC V Ion Ca (test code = POC V Ion Ca) 1.20 1.05-1.25 [facility] CenterRvkccaaLVEUZVAUP2507-92-36 16:44:00 Test Item Value Reference Range Interpretation Comments POC V K (test code = POC V K) 4.0 3.5-5.1 [facility] CenterOvodwwxNZJJBMKXQ0844-19-10 16:44:00 Test Item Value Reference Range Interpretation Comments POC V Na (test code = POC V Na) 130 135-145 [facility] CenterCoxqdnyJVDYAUVAE9606-42-73 16:44:00 Test Item Value Reference Range Interpretation Comments POC V Source (test code = POC V Source) [facility]2022-10-24 16:44:00 Test Item Value Reference Range Interpretation Comments POC V Temp (test code = POC V Temp) 37.0 [facility] CenterVcrdnotLSKJUGYTB2038-31-38 16:44:00 Test Item Value Reference Range Interpretation Comments POC V Ion Ca (test code = POC V Ion Ca) 1.20 1.05-1.25 [facility] CenterQesfbjeAQQSSJHDA8460-79-34 16:44:00 Test Item Value Reference Range Interpretation Comments POC V K (test code = POC V K) 4.0 3.5-5.1 [facility] CenterMxfrwbhGUZDDBAYY5835-17-68 16:44:00 Test Item Value Reference Range Interpretation Comments POC V Na (test code = POC V Na) 130 135-145 [facility] CenterAwvspiiQKNPZQTFR3212-17-41 16:44:00 Test Item Value Reference Range Interpretation Comments POC V LA (test code = POC V LA) 1.1 0.5-2.2 [facility] CenterZlputjzVWHXYPPRV2666-94-14 16:44:00 Test Item Value Reference Range Interpretation Comments POC V pH (test code = POC V pH) 7.41 1 7.28-7.42 [place] 223672-10-24 16:44:00 Test Item Value Reference Range Interpretation Comments POC V LA (test code = POC V LA) 1.1 0.5-2.2 [facility] CenterDxtgdkoTMTDOJAYG7429-09-45 16:44:00 Test Item Value Reference Range Interpretation Comments POC V PCO2 (test code = POC V PCO2) 40 38-52 [facility] CenterWutmasoOZGUXKMMU8803-87-96 16:44:00 Test Item Value Reference Range Interpretation Comments POC V PO2 (test code = POC V PO2) 41 20-49 [facility] CenterQwmjwspNRVLTVHNA3583-93-94 16:44:00 Test Item Value Reference Range Interpretation Comments POC V HCO3 (test code = POC V HCO3) 25 22-26 [facility] CenterSgodckkWPTYMGLDS6024-13-73 16:44:00 Test Item Value Reference Range Interpretation Comments POC V BE (test code = POC V BE) 1 -2-2 [facility] CenterJufjkbpVIQJUHFLA7489-48-96 16:44:00 Test Item Value Reference Range Interpretation Comments POC V O2 Sat (calc) (test code = POC V 76.8 40.0-70.0 O2 Sat (calc)) [facility] CenterAibmtkrTTOEYAJND5128-46-14 16:44:00 Test Item Value Reference Range Interpretation Comments POC V Hgb Tot (test code = POC V Hgb 9.6 12.0-16.0 Tot) [facility] CenterKfubkdgAWZPUQGVC2189-24-74 16:44:00 Test Item Value Reference Range Interpretation Comments POC V Glu (test code = POC V Glu) 185 70-99 [facility] CenterVjzfykkEMRAXHYZT3564-84-18 16:44:00 Test Item Value Reference Range Interpretation Comments POC V Hct (calc) (test code = POC V Hct 29.0 36.0-48.0 (calc)) [facility] CenterAtonyfuPDWKEXSHI6458-24-70 16:44:00 Test Item Value Reference Range Interpretation Comments POC V Cl (test code = POC V Cl) 100 95-109 [facility] CenterWhuzmvsVNWDBXBSZ4077-97-99 16:44:00 Test Item Value Reference Range Interpretation Comments POC V Ca Ion at pH 7.4 (test code = POC 1.20 1.05-1.25 V Ca Ion at pH 7.4) [facility] CenterYptgaxvUVBNGFRIB5136-14-27 16:44:00 Test Item Value Reference Range Interpretation Comments POC V pH (test code = POC V pH) 7.41 1 7.28-7.42 [facility] CenterRgdhootZXJFQDPKP4751-19-15 16:44:00 Test Item Value Reference Range Interpretation Comments POC V PCO2 (test code = POC V PCO2) 40 38-52 [facility] CenterAdryhvtENZQPRIJE6467-89-95 16:44:00 Test Item Value Reference Range Interpretation Comments POC V PO2 (test code = POC V PO2) 41 20-49 [facility] CenterCuurvpjNXXUZIBYO1469-23-31 16:44:00 Test Item Value Reference Range Interpretation Comments POC V HCO3 (test code = POC V HCO3) 25 22-26 [facility] CenterXwtnmwrRWJHHUWUV2801-34-10 16:44:00 Test Item Value Reference Range Interpretation Comments POC V BE (test code = POC V BE) 1 -2-2 [facility] CenterKojiwmwPKQWCKUOW9165-35-42 16:44:00 Test Item Value Reference Range Interpretation Comments POC V O2 Sat (calc) (test code = POC V 76.8 40.0-70.0 O2 Sat (calc)) [facility] CenterAqrjmvfBMIUCWHCQ0417-67-50 16:44:00 Test Item Value Reference Range Interpretation Comments POC V Hgb Tot (test code = POC V Hgb 9.6 12.0-16.0 Tot) [facility] CenterHrsifraPRBVJRNUS0648-67-54 16:44:00 Test Item Value Reference Range Interpretation Comments POC V Glu (test code = POC V Glu) 185 70-99 [facility] CenterNeroeiyURULVCVDR3373-05-00 16:44:00 Test Item Value Reference Range Interpretation Comments POC V Hct (calc) (test code = POC V Hct 29.0 36.0-48.0 (calc)) [facility] CenterVlezqbcTDHVOVGDI7900-99-37 16:44:00 Test Item Value Reference Range Interpretation Comments POC V Cl (test code = POC V Cl) 100 95-109 [facility] CenterNyvfarpUYJKFIIBQ3029-92-50 16:44:00 Test Item Value Reference Range Interpretation Comments POC V Ca Ion at pH 7.4 (test code = POC 1.20 1.05-1.25 V Ca Ion at pH 7.4) [facility] CenterEryvfpbYCRGKHOAK5090-66-78 16:44:00 Test Item Value Reference Range Interpretation Comments POC V Source (test code = POC V Source) [place] [facility] CenterVxyommqRPCQOXMLB2142-33-28 16:44:00 Test Item Value Reference Range Interpretation Comments POC V Temp (test code = POC V Temp) 37.0 [facility] CenterLmydrlpTIBUMEZHC1919-63-51 16:44:00 Test Item Value Reference Range Interpretation Comments POC V Ion Ca (test code = POC V Ion Ca) 1.20 1.05-1.25 [facility] CenterUnvlrtdLNUPEOVKE0478-11-13 16:44:00 Test Item Value Reference Range Interpretation Comments POC V K (test code = POC V K) 4.0 3.5-5.1 [facility] CenterBxtrwjqXIQPZXVHQ3732-90-61 16:44:00 Test Item Value Reference Range Interpretation Comments POC V Na (test code = POC V Na) 130 135-145 [facility] CenterAnycusvFAYIXOCDV8172-93-78 16:44:00 Test Item Value Reference Range Interpretation Comments POC V LA (test code = POC V LA) 1.1 0.5-2.2 [facility] CenterUdtdmzsYSBLJKWGP0230-93-93 16:44:00 Test Item Value Reference Range Interpretation Comments POC V pH (test code = POC V pH) 7.41 1 7.28-7.42 [facility] CenterQjcqrypEXVGZNUMF8219-92-95 16:44:00 Test Item Value Reference Range Interpretation Comments POC V PCO2 (test code = POC V PCO2) 40 38-52 [facility] CenterXpixmigEYMQEMDSD2829-48-13 16:44:00 Test Item Value Reference Range Interpretation Comments POC V PO2 (test code = POC V PO2) 41 20-49 [facility] CenterNtircrqPMRUASWMR8845-94-89 16:44:00 Test Item Value Reference Range Interpretation Comments POC V HCO3 (test code = POC V HCO3) 25 22-26 [facility] CenterPlenrcbODWFYOKNX6806-38-39 16:44:00 Test Item Value Reference Range Interpretation Comments POC V BE (test code = POC V BE) 1 -2-2 [facility] CenterVgksjtlDRGAHYSIM8636-43-27 16:44:00 Test Item Value Reference Range Interpretation Comments POC V O2 Sat (calc) (test code = POC V 76.8 40.0-70.0 O2 Sat (calc)) [facility] CenterCqczsnjEBEFTRTNI4850-44-27 16:44:00 Test Item Value Reference Range Interpretation Comments POC V Hgb Tot (test code = POC V Hgb 9.6 12.0-16.0 Tot) [facility] CenterZjjtqhnEMWCWHWQI6544-72-85 16:44:00 Test Item Value Reference Range Interpretation Comments POC V Glu (test code = POC V Glu) 185 70-99 [facility] CenterMhyfkspARIGICAAG5513-02-95 16:44:00 Test Item Value Reference Range Interpretation Comments POC V Hct (calc) (test code = POC V Hct 29.0 36.0-48.0 (calc)) [facility] CenterIcizyovUCMBZBIBN1633-07-22 16:44:00 Test Item Value Reference Range Interpretation Comments POC V Cl (test code = POC V Cl) 100 95-109 [facility] CenterFuopffpLTSEWFFLY8836-73-81 16:44:00 Test Item Value Reference Range Interpretation Comments POC V Ca Ion at pH 7.4 (test code = POC 1.20 1.05-1.25 V Ca Ion at pH 7.4) [facility] CenterAgynmraPIWQNLXKO6173-61-52 16:44:00 Test Item Value Reference Range Interpretation Comments POC V Source (test code = POC V Source) [place] [facility] CenterDqhcfkdCIKSPIGMA4289-67-62 16:44:00 Test Item Value Reference Range Interpretation Comments POC V Temp (test code = POC V Temp) 37.0 [facility] CenterTrhdzgpGSGEZZNZR2103-49-34 16:44:00 Test Item Value Reference Range Interpretation Comments POC V Ion Ca (test code = POC V Ion Ca) 1.20 1.05-1.25 [facility] CenterApiyxfzUMKLSHVEL3482-49-18 16:44:00 Test Item Value Reference Range Interpretation Comments POC V K (test code = POC V K) 4.0 3.5-5.1 [facility] CenterVocoecaOJYPUYPPA4755-02-65 16:44:00 Test Item Value Reference Range Interpretation Comments POC V Na (test code = POC V Na) 130 135-145 [facility] CenterVhfvljrERLVGUGKA2525-73-87 16:44:00 Test Item Value Reference Range Interpretation Comments POC V LA (test code = POC V LA) 1.1 0.5-2.2 [place] 223672-10-24 16:44:00 Test Item Value Reference Range Interpretation Comments POC V pH (test code = POC V pH) 7.41 1 7.28-7.42 [place] 223672-10-24 16:44:00 Test Item Value Reference Range Interpretation Comments POC V PCO2 (test code = POC V PCO2) 40 38-52 [facility] CenterOwyzyvsPJVKYJXUF8917-60-77 16:44:00 Test Item Value Reference Range Interpretation Comments POC V PO2 (test code = POC V PO2) 41 20-49 [facility] CenterZpmahrcHOVIRTFPI2890-34-88 16:44:00 Test Item Value Reference Range Interpretation Comments POC V HCO3 (test code = POC V HCO3) 25 22-26 [facility] CenterGikwvbgLVPJCENEC1855-29-40 16:44:00 Test Item Value Reference Range Interpretation Comments POC V BE (test code = POC V BE) 1 -2-2 [facility] CenterAptwqdwIMUXKEMIU3953-59-28 16:44:00 Test Item Value Reference Range Interpretation Comments POC V O2 Sat (calc) (test code = POC V 76.8 40.0-70.0 O2 Sat (calc)) [facility] CenterFhfxbqpYQFLUTCCT8458-52-80 16:44:00 Test Item Value Reference Range Interpretation Comments POC V Hgb Tot (test code = POC V Hgb 9.6 12.0-16.0 Tot) [facility] CenterIdsyvuaYTMGRVFRL1310-62-62 16:44:00 Test Item Value Reference Range Interpretation Comments POC V Glu (test code = POC V Glu) 185 70-99 [facility] CenterRozknupEIBXRSBKU5452-73-58 16:44:00 Test Item Value Reference Range Interpretation Comments POC V Hct (calc) (test code = POC V Hct 29.0 36.0-48.0 (calc)) [facility] CenterSgcdzbpPJGEXPGDF2749-73-22 16:44:00 Test Item Value Reference Range Interpretation Comments POC V Cl (test code = POC V Cl) 100 95-109 [facility] CenterSumxeywQKLXLNDPC1704-65-96 16:44:00 Test Item Value Reference Range Interpretation Comments POC V Ca Ion at pH 7.4 (test code = POC 1.20 1.05-1.25 V Ca Ion at pH 7.4) [facility] CenterVhymtuiSLMWCNLUQ1049-91-45 16:44:00 Test Item Value Reference Range Interpretation Comments POC V Source (test code = POC V Source) [place] [facility] CenterYzddqnaUOIZCMDZD3520-97-49 16:44:00 Test Item Value Reference Range Interpretation Comments POC V Temp (test code = POC V Temp) 37.0 [facility] CenterGjlrciyHGVCZGKOI9156-98-89 16:44:00 Test Item Value Reference Range Interpretation Comments POC V Ion Ca (test code = POC V Ion Ca) 1.20 1.05-1.25 [facility] CenterHoguevqMPWDUTXDT3106-20-24 16:44:00 Test Item Value Reference Range Interpretation Comments POC V K (test code = POC V K) 4.0 3.5-5.1 [facility] CenterMkskoouIBFBZRKJE5299-22-39 16:44:00 Test Item Value Reference Range Interpretation Comments POC V Na (test code = POC V Na) 130 135-145 [facility] CenterOmjhafcXKVHVUHSU8816-89-92 16:44:00 Test Item Value Reference Range Interpretation Comments POC V LA (test code = POC V LA) 1.1 0.5-2.2 [facility] CenterBjxrrdiDAKTHMJZZ6134-84-83 16:44:00 Test Item Value Reference Range Interpretation Comments POC V pH (test code = POC V pH) 7.41 1 7.28-7.42 [facility] CenterIkwseorKPMKHDDKB0128-65-64 16:44:00 Test Item Value Reference Range Interpretation Comments POC V PCO2 (test code = POC V PCO2) 40 38-52 [facility] CenterFbjwpnhFIYZJAXOG8055-46-58 16:44:00 Test Item Value Reference Range Interpretation Comments POC V PO2 (test code = POC V PO2) 41 20-49 [facility] CenterNabwvncMSCIPYRZJ5588-95-58 16:44:00 Test Item Value Reference Range Interpretation Comments POC V HCO3 (test code = POC V HCO3) 25 22-26 [facility] CenterJbvhbcaPVFZMECIC8709-64-46 16:44:00 Test Item Value Reference Range Interpretation Comments POC V BE (test code = POC V BE) 1 -2-2 [facility] CenterEfemlcoANUEEDPJD6948-79-13 16:44:00 Test Item Value Reference Range Interpretation Comments POC V O2 Sat (calc) (test code = POC V 76.8 40.0-70.0 O2 Sat (calc)) [facility] CenterPdimxihQFHEVXCUD7088-73-46 16:44:00 Test Item Value Reference Range Interpretation Comments POC V Hgb Tot (test code = POC V Hgb 9.6 12.0-16.0 Tot) [facility] CenterOghnzfnXVSOGWZMT8720-46-17 16:44:00 Test Item Value Reference Range Interpretation Comments POC V Glu (test code = POC V Glu) 185 70-99 [facility] CenterFykipifESKZXCTTZ8266-89-25 16:44:00 Test Item Value Reference Range Interpretation Comments POC V Hct (calc) (test code = POC V Hct 29.0 36.0-48.0 (calc)) [facility] CenterLblnudsFEYYQAXRX7704-91-22 16:44:00 Test Item Value Reference Range Interpretation Comments POC V Cl (test code = POC V Cl) 100 95-109 [facility] CenterSxhpafsWNRWTSTLL3745-79-39 16:44:00 Test Item Value Reference Range Interpretation Comments POC V Ca Ion at pH 7.4 (test code = POC 1.20 1.05-1.25 V Ca Ion at pH 7.4) [facility] CenterXzzqqhhXEZMYGGTW1063-00-04 16:44:00 Test Item Value Reference Range Interpretation Comments POC V Source (test code = POC V Source) [place] [facility] CenterOipxquiCZGAWWGVV6906-64-36 16:44:00 Test Item Value Reference Range Interpretation Comments POC V Temp (test code = POC V Temp) 37.0 [place] 223672-10-24 16:44:00 Test Item Value Reference Range Interpretation Comments POC V Ion Ca (test code = POC V Ion Ca) 1.20 1.05-1.25 [facility] CenterCnthzxdXBEMCRZTY1106-37-45 16:44:00 Test Item Value Reference Range Interpretation Comments POC V K (test code = POC V K) 4.0 3.5-5.1 [facility] CenterHybdsqfPWGYFMPDI1020-96-25 16:44:00 Test Item Value Reference Range Interpretation Comments POC V Na (test code = POC V Na) 130 135-145 [facility] CenterJpfjmioURUTGCFRJ2314-42-00 16:44:00 Test Item Value Reference Range Interpretation Comments POC V LA (test code = POC V LA) 1.1 0.5-2.2 [facility] CenterBshmaplYGLFDJJUE0626-86-90 16:44:00 Test Item Value Reference Range Interpretation Comments POC V pH (test code = POC V pH) 7.41 1 7.28-7.42 [place] [address]-10-24 16:44:00 Test Item Value Reference Range Interpretation Comments POC V PCO2 (test code = POC V PCO2) 40 38-52 [facility] CenterFvtaogtMYFDQQYZH0588-29-25 16:44:00 Test Item Value Reference Range Interpretation Comments POC V PO2 (test code = POC V PO2) 41 20-49 [facility] CenterJfttwbwLURUSNCJN2972-07-51 16:44:00 Test Item Value Reference Range Interpretation Comments POC V HCO3 (test code = POC V HCO3) 25 22-26 [facility] CenterNoiichhLEWCANBXJ3400-33-11 16:44:00 Test Item Value Reference Range Interpretation Comments POC V BE (test code = POC V BE) 1 -2-2 [facility] CenterSlnunjmOEEDZMNAL2432-43-44 16:44:00 Test Item Value Reference Range Interpretation Comments POC V O2 Sat (calc) (test code = POC V 76.8 40.0-70.0 O2 Sat (calc)) [facility] CenterYspknauPJJDCCEYP8756-03-91 16:44:00 Test Item Value Reference Range Interpretation Comments POC V Hgb Tot (test code = POC V Hgb 9.6 12.0-16.0 Tot) [facility] CenterRhgfmjbQOMQEMLOM3453-76-51 16:44:00 Test Item Value Reference Range Interpretation Comments POC V Glu (test code = POC V Glu) 185 70-99 [facility] CenterDieirzzQDIDGPZQU8949-56-05 16:44:00 Test Item Value Reference Range Interpretation Comments POC V Hct (calc) (test code = POC V Hct 29.0 36.0-48.0 (calc)) [facility] CenterVuklvkqHOBNLQVPX8156-25-47 16:44:00 Test Item Value Reference Range Interpretation Comments POC V Cl (test code = POC V Cl) 100 95-109 [facility] CenterYgllqdiYYDEDIRZS6986-08-91 16:44:00 Test Item Value Reference Range Interpretation Comments POC V Ca Ion at pH 7.4 (test code = POC 1.20 1.05-1.25 V Ca Ion at pH 7.4) [facility] CenterEokxksjGRBHEMPDY2456-76-22 16:44:00 Test Item Value Reference Range Interpretation Comments POC V Source (test code = POC V Source) [place] [facility] CenterQtreakcFLUXQACJM8124-95-29 16:44:00 Test Item Value Reference Range Interpretation Comments POC V Temp (test code = POC V Temp) 37.0 [facility] CenterFadwuozRRKRZPMZY9425-35-19 16:44:00 Test Item Value Reference Range Interpretation Comments POC V Ion Ca (test code = POC V Ion Ca) 1.20 1.05-1.25 [facility] CenterRjpmoowATNEVIAOH9563-90-57 16:44:00 Test Item Value Reference Range Interpretation Comments POC V K (test code = POC V K) 4.0 3.5-5.1 [facility] CenterTmrjobsSPMKNJJCR3622-35-39 16:44:00 Test Item Value Reference Range Interpretation Comments POC V Na (test code = POC V Na) 130 135-145 [facility] CenterKjhxpaiOJBWQKTCK9338-89-14 16:44:00 Test Item Value Reference Range Interpretation Comments POC V LA (test code = POC V LA) 1.1 0.5-2.2 [facility] CenterMnpbxceBJUDHHNJA9803-23-55 16:44:00 Test Item Value Reference Range Interpretation Comments POC V pH (test code = POC V pH) 7.41 1 7.28-7.42 [facility] CenterYtdclgeHLIZOOSSA5701-42-40 16:44:00 Test Item Value Reference Range Interpretation Comments POC V PCO2 (test code = POC V PCO2) 40 38-52 [facility] CenterYmvolxoZUPPNIUUX5551-01-88 16:44:00 Test Item Value Reference Range Interpretation Comments POC V PO2 (test code = POC V PO2) 41 20-49 [facility] CenterPlfrexxOJYDNSFMT0338-23-08 16:44:00 Test Item Value Reference Range Interpretation Comments POC V HCO3 (test code = POC V HCO3) 25 22-26 [facility] CenterCvlneetMMWFQSFTS8299-93-33 16:44:00 Test Item Value Reference Range Interpretation Comments POC V BE (test code = POC V BE) 1 -2-2 [facility] CenterDsuitqiNGWIYRMCP1582-48-86 16:44:00 Test Item Value Reference Range Interpretation Comments POC V O2 Sat (calc) (test code = POC V 76.8 40.0-70.0 O2 Sat (calc)) [facility] CenterCuarhnnNRCBIHXTU3258-43-20 16:44:00 Test Item Value Reference Range Interpretation Comments POC V Hgb Tot (test code = POC V Hgb 9.6 12.0-16.0 Tot) [facility] CenterXmwtwzmPHQJIXGAD1796-77-28 16:44:00 Test Item Value Reference Range Interpretation Comments POC V Glu (test code = POC V Glu) 185 70-99 [facility] CenterRozdxpeOPJFGXOAM7894-04-42 16:44:00 Test Item Value Reference Range Interpretation Comments POC V Hct (calc) (test code = POC V Hct 29.0 36.0-48.0 (calc)) [facility] CenterUbfrmuiMRUZXJLVN7230-11-65 16:44:00 Test Item Value Reference Range Interpretation Comments POC V Cl (test code = POC V Cl) 100 95-109 [facility] CenterMbatphuOERKNDTFA2858-56-30 16:44:00 Test Item Value Reference Range Interpretation Comments POC V Ca Ion at pH 7.4 (test code = POC 1.20 1.05-1.25 V Ca Ion at pH 7.4) [facility] CenterTpqthxzGOABZEALN7107-45-17 16:44:00 Test Item Value Reference Range Interpretation Comments POC V Source (test code = POC V Source) [facility] CenterJmlqrdnNOUFHASLF2503-96-99 16:44:00 Test Item Value Reference Range Interpretation Comments POC V Temp (test code = POC V Temp) 37.0 [facility] CenterQorsbrtJAYBOBTBJ8053-69-51 16:44:00 Test Item Value Reference Range Interpretation Comments POC V Ion Ca (test code = POC V Ion Ca) 1.20 1.05-1.25 [facility] CenterUzpiutyPTEFGBLCF7791-93-13 16:44:00 Test Item Value Reference Range Interpretation Comments POC V K (test code = POC V K) 4.0 3.5-5.1 [facility] CenterAacgryoEKNXAXWDX8688-14-03 16:44:00 Test Item Value Reference Range Interpretation Comments POC V Na (test code = POC V Na) 130 135-145 [facility] CenterXbtuxjzCUWYCVGBC1581-76-50 16:44:00 Test Item Value Reference Range Interpretation Comments POC V LA (test code = POC V LA) 1.1 0.5-2.2 [facility] CenterGcfmfqxZIUGQEDSM9776-34-46 16:44:00 Test Item Value Reference Range Interpretation Comments POC V pH (test code = POC V pH) 7.41 1 7.28-7.42 [facility] CenterArcpoiyVIYOACAIZ6971-92-01 16:44:00 Test Item Value Reference Range Interpretation Comments POC V PCO2 (test code = POC V PCO2) 40 38-52 [facility] CenterHixndqdKJDGXYORD3550-25-42 16:44:00 Test Item Value Reference Range Interpretation Comments POC V PO2 (test code = POC V PO2) 41 20-49 [facility] CenterAnrgxazVFAROJXKI7133-74-04 16:44:00 Test Item Value Reference Range Interpretation Comments POC V HCO3 (test code = POC V HCO3) 25 22-26 [place] 223672-10-24 16:44:00 Test Item Value Reference Range Interpretation Comments POC V BE (test code = POC V BE) 1 -2-2 [facility] CenterGqaszdqRLAXGZSCC8995-01-06 16:44:00 Test Item Value Reference Range Interpretation Comments POC V O2 Sat (calc) (test code = POC V 76.8 40.0-70.0 O2 Sat (calc)) [facility] CenterWpqgqjwBYUBMIEVO9603-75-85 16:44:00 Test Item Value Reference Range Interpretation Comments POC V Hgb Tot (test code = POC V Hgb 9.6 12.0-16.0 Tot) [facility] CenterEcngwidGRUXRFOYZ3639-79-60 16:44:00 Test Item Value Reference Range Interpretation Comments POC V Glu (test code = POC V Glu) 185 70-99 [facility] CenterZnvzyrmRZRSJJENZ2391-23-70 16:44:00 Test Item Value Reference Range Interpretation Comments POC V Hct (calc) (test code = POC V Hct 29.0 36.0-48.0 (calc)) [facility] CenterNpoiatnECMKVHSAT6879-16-05 16:44:00 Test Item Value Reference Range Interpretation Comments POC V Cl (test code = POC V Cl) 100 95-109 [facility] CenterSrgkmabWYZBLANMG8157-62-23 16:44:00 Test Item Value Reference Range Interpretation Comments POC V Ca Ion at pH 7.4 (test code = POC 1.20 1.05-1.25 V Ca Ion at pH 7.4) [facility] CenterKplpereUADWBIJZM3093-11-12 16:44:00 Test Item Value Reference Range Interpretation Comments POC V Source (test code = POC V Source) [facility] CenterDtyljdaQJRKKGKGL7712-62-59 16:44:00 Test Item Value Reference Range Interpretation Comments POC V Temp (test code = POC V Temp) 37.0 [facility] CenterEcifxeuAZXWSBMHD2884-72-32 16:44:00 Test Item Value Reference Range Interpretation Comments POC V Ion Ca (test code = POC V Ion Ca) 1.20 1.05-1.25 [facility] CenterWviqqwnVTODVINYM1047-93-11 16:44:00 Test Item Value Reference Range Interpretation Comments POC V K (test code = POC V K) 4.0 3.5-5.1 [facility] CenterVkxabmnUROMLSSUB1847-86-24 16:44:00 Test Item Value Reference Range Interpretation Comments POC V Na (test code = POC V Na) 130 135-145 [facility] CenterJcafblaVPZPSVDKY3353-05-77 16:44:00 Test Item Value Reference Range Interpretation Comments POC V LA (test code = POC V LA) 1.1 0.5-2.2 [facility] CenterWcdtnbbHUTJDMZAE5935-46-18 16:44:00 Test Item Value Reference Range Interpretation Comments POC V pH (test code = POC V pH) 7.41 1 7.28-7.42 [facility] CenterAdwyiyeXPRJMOBTL0923-63-71 16:44:00 Test Item Value Reference Range Interpretation Comments POC V PCO2 (test code = POC V PCO2) 40 38-52 [facility] CenterRmjgrbjSENEJTXIY5527-87-47 16:44:00 Test Item Value Reference Range Interpretation Comments POC V PO2 (test code = POC V PO2) 41 20-49 [facility] CenterTwipkjiNDZQDDKBJ9979-24-16 16:44:00 Test Item Value Reference Range Interpretation Comments POC V HCO3 (test code = POC V HCO3) 25 22-26 [facility] CenterVadwmxiRIQYUYCBS4203-89-08 16:44:00 Test Item Value Reference Range Interpretation Comments POC V BE (test code = POC V BE) 1 -2-2 [facility] CenterDibfzynKHUBFQVIA5795-18-91 16:44:00 Test Item Value Reference Range Interpretation Comments POC V O2 Sat (calc) (test code = POC V 76.8 40.0-70.0 O2 Sat (calc)) [facility] CenterZupcxysCAGACEQFU2572-32-60 16:44:00 Test Item Value Reference Range Interpretation Comments POC V Hgb Tot (test code = POC V Hgb 9.6 12.0-16.0 Tot) [facility] CenterJrjphsiGZKXWNZXT0382-57-27 16:44:00 Test Item Value Reference Range Interpretation Comments POC V Glu (test code = POC V Glu) 185 70-99 [facility] CenterBboiuxiKIUXNBEFF9241-60-30 16:44:00 Test Item Value Reference Range Interpretation Comments POC V Hct (calc) (test code = POC V Hct 29.0 36.0-48.0 (calc)) [facility] CenterAbgtmdpPXDSDOWSA2161-13-91 16:44:00 Test Item Value Reference Range Interpretation Comments POC V Cl (test code = POC V Cl) 100 95-109 [facility] CenterHslusxqTRVLHQQPG3438-98-04 16:44:00 Test Item Value Reference Range Interpretation Comments POC V Ca Ion at pH 7.4 (test code = POC 1.20 1.05-1.25 V Ca Ion at pH 7.4) [facility] CenterSjidmzcVTTZILMXR2979-06-25 16:44:00 Test Item Value Reference Range Interpretation Comments POC V Source (test code = POC V Source) [facility] CenterZgphroiJENXCJREY9593-38-12 16:44:00 Test Item Value Reference Range Interpretation Comments POC V Temp (test code = POC V Temp) 37.0 [facility] CenterSwwnlrhGSEOADSCR8235-67-41 16:44:00 Test Item Value Reference Range Interpretation Comments POC V Ion Ca (test code = POC V Ion Ca) 1.20 1.05-1.25 [facility] CenterIajcejbENXJGHLAU9633-99-21 16:44:00 Test Item Value Reference Range Interpretation Comments POC V K (test code = POC V K) 4.0 3.5-5.1 [facility] CenterVwhxjfxKKFBDFUJM2313-66-65 16:44:00 Test Item Value Reference Range Interpretation Comments POC V Na (test code = POC V Na) 130 135-145 [facility] CenterSbjsmvdSATKVXANY5733-07-36 16:44:00 Test Item Value Reference Range Interpretation Comments POC V LA (test code = POC V LA) 1.1 0.5-2.2 [facility] CenterDnydppcSLVNYEEHG7527-45-89 16:44:00 Test Item Value Reference Range Interpretation Comments POC V pH (test code = POC V pH) 7.41 1 7.28-7.42 [facility] CenterCocgawhUBOOUHDBF6543-99-49 16:44:00 Test Item Value Reference Range Interpretation Comments POC V PCO2 (test code = POC V PCO2) 40 38-52 [facility] CenterHkfprbaUWGWLQCUW7166-47-49 16:44:00 Test Item Value Reference Range Interpretation Comments POC V PO2 (test code = POC V PO2) 41 20-49 [facility] CenterMyfkusdAISOAZPNB0338-81-72 16:44:00 Test Item Value Reference Range Interpretation Comments POC V HCO3 (test code = POC V HCO3) 25 22-26 [place] 223672-10-24 16:44:00 Test Item Value Reference Range Interpretation Comments POC V BE (test code = POC V BE) 1 -2-2 [facility] CenterFxhlaptIBBEIPZDA4480-49-51 16:44:00 Test Item Value Reference Range Interpretation Comments POC V O2 Sat (calc) (test code = POC V 76.8 40.0-70.0 O2 Sat (calc)) [facility] CenterAuhrgjeUJUBHTLFE5863-36-91 16:44:00 Test Item Value Reference Range Interpretation Comments POC V Hgb Tot (test code = POC V Hgb 9.6 12.0-16.0 Tot) [facility] CenterYnikpudKYYLSAVTY3962-75-06 16:44:00 Test Item Value Reference Range Interpretation Comments POC V Glu (test code = POC V Glu) 185 70-99 [facility] CenterLapgpbcMIWYICJTG8887-82-32 16:44:00 Test Item Value Reference Range Interpretation Comments POC V Hct (calc) (test code = POC V Hct 29.0 36.0-48.0 (calc)) [facility] CenterFgowhetOTMXUIDUR3011-56-25 16:44:00 Test Item Value Reference Range Interpretation Comments POC V Cl (test code = POC V Cl) 100 95-109 [facility] CenterSnylmbwPMORAGRVO5913-37-63 16:44:00 Test Item Value Reference Range Interpretation Comments POC V Ca Ion at pH 7.4 (test code = POC 1.20 1.05-1.25 V Ca Ion at pH 7.4) [facility] CenterZxcoqawKOVXEFLEV0256-37-13 16:44:00 Test Item Value Reference Range Interpretation Comments POC V Source (test code = POC V Source) [facility] CenterKsihkswZHKALLJVL1608-38-21 16:44:00 Test Item Value Reference Range Interpretation Comments POC V Temp (test code = POC V Temp) 37.0 [place] 223672-10-24 16:44:00 Test Item Value Reference Range Interpretation Comments POC V Ion Ca (test code = POC V Ion Ca) 1.20 1.05-1.25 [facility] CenterMtpkkueUJPYGKDOM3113-09-04 16:44:00 Test Item Value Reference Range Interpretation Comments POC V K (test code = POC V K) 4.0 3.5-5.1 [facility] CenterRhefzqpUENSVZICD1334-11-36 16:44:00 Test Item Value Reference Range Interpretation Comments POC V Na (test code = POC V Na) 130 135-145 [facility] CenterUqvhyrlIFQLFKPRN8446-80-27 16:44:00 Test Item Value Reference Range Interpretation Comments POC V LA (test code = POC V LA) 1.1 0.5-2.2 [facility] CenterYnufhrwIUJKNERGI1123-75-68 16:44:00 Test Item Value Reference Range Interpretation Comments POC V pH (test code = POC V pH) 7.41 1 7.28-7.42 [facility] CenterNkqrmuiOACBIMBXL0970-34-94 16:44:00 Test Item Value Reference Range Interpretation Comments POC V PCO2 (test code = POC V PCO2) 40 38-52 [facility] CenterCmjjnuuGXTTHDJNN5092-11-58 16:44:00 Test Item Value Reference Range Interpretation Comments POC V PO2 (test code = POC V PO2) 41 20-49 [facility] CenterAtrqpreASHOSZDQR0651-12-37 16:44:00 Test Item Value Reference Range Interpretation Comments POC V HCO3 (test code = POC V HCO3) 25 22-26 [facility] CenterNhkzlonALLORKSRD7990-44-45 16:44:00 Test Item Value Reference Range Interpretation Comments POC V BE (test code = POC V BE) 1 -2-2 [facility] CenterMmtxinfRMMVCIAZQ3476-41-36 16:44:00 Test Item Value Reference Range Interpretation Comments POC V O2 Sat (calc) (test code = POC V 76.8 40.0-70.0 O2 Sat (calc)) [facility] CenterGqqhxgcJWYCEXTLL3499-34-82 16:44:00 Test Item Value Reference Range Interpretation Comments POC V Hgb Tot (test code = POC V Hgb 9.6 12.0-16.0 Tot) [facility] CenterOkrlayiIMZABRFAJ4045-45-10 16:44:00 Test Item Value Reference Range Interpretation Comments POC V Glu (test code = POC V Glu) 185 70-99 [facility] CenterOvqlmevBZTIAMFOM7620-17-14 16:44:00 Test Item Value Reference Range Interpretation Comments POC V Hct (calc) (test code = POC V Hct 29.0 36.0-48.0 (calc)) [facility] CenterLksygxjHOEYMMOBE5361-98-08 16:44:00 Test Item Value Reference Range Interpretation Comments POC V Cl (test code = POC V Cl) 100 95-109 [facility] CenterSjzfgrzAIIKBMBHD3397-25-60 16:44:00 Test Item Value Reference Range Interpretation Comments POC V Ca Ion at pH 7.4 (test code = POC 1.20 1.05-1.25 V Ca Ion at pH 7.4) [facility] CenterHymtvigGUSTEYOFR4059-86-75 16:44:00 Test Item Value Reference Range Interpretation Comments POC V Source (test code = POC V Source) [facility] [facility] CenterQudexrhOZYNKYXWB4798-78-44 16:44:00 Test Item Value Reference Range Interpretation Comments POC V Temp (test code = POC V Temp) 37.0 [facility] CenterJupwqodPOEMYZHHW1537-42-56 16:44:00 Test Item Value Reference Range Interpretation Comments POC V Ion Ca (test code = POC V Ion Ca) 1.20 1.05-1.25 [facility] CenterTzteqydACVTHGUSI9475-31-70 16:44:00 Test Item Value Reference Range Interpretation Comments POC V K (test code = POC V K) 4.0 3.5-5.1 [facility] CenterYgfysvkRFKRXWVOK5310-25-88 16:44:00 Test Item Value Reference Range Interpretation Comments POC V Na (test code = POC V Na) 130 135-145 [facility] CenterChlbswoJWJZZYXGP9094-00-74 16:44:00 Test Item Value Reference Range Interpretation Comments POC V LA (test code = POC V LA) 1.1 0.5-2.2 [facility] CenterOqquofhCFVPUXYTW7037-14-09 16:44:00 Test Item Value Reference Range Interpretation Comments POC V pH (test code = POC V pH) 7.41 1 7.28-7.42 [facility] CenterSabjoomBJMISTFCA9350-80-37 16:44:00 Test Item Value Reference Range Interpretation Comments POC V PCO2 (test code = POC V PCO2) 40 38-52 [facility] CenterWuwoaxtSHALSUMAY4042-79-49 16:44:00 Test Item Value Reference Range Interpretation Comments POC V PO2 (test code = POC V PO2) 41 20-49 [facility] CenterGvmfcacZORJWEVVP1576-52-29 16:44:00 Test Item Value Reference Range Interpretation Comments POC V Source (test code = POC V Source) [facility]2022-10-24 16:44:00 Test Item Value Reference Range Interpretation Comments POC V Temp (test code = POC V Temp) 37.0 [facility] CenterStpghykVBIEWHCRN6357-43-14 16:44:00 Test Item Value Reference Range Interpretation Comments POC V Ion Ca (test code = POC V Ion Ca) 1.20 1.05-1.25 [facility] CenterWwrsikrSSXZEYLYS2797-80-80 16:44:00 Test Item Value Reference Range Interpretation Comments POC V K (test code = POC V K) 4.0 3.5-5.1 [facility] CenterSlklghtQDUTHZIMJ9129-75-09 16:44:00 Test Item Value Reference Range Interpretation Comments POC V Na (test code = POC V Na) 130 135-145 [facility] CenterMmczwlaGJXWYTRWA1635-18-88 16:44:00 Test Item Value Reference Range Interpretation Comments POC V HCO3 (test code = POC V HCO3) [facility] CenterFawyxssFXOVJUGZJ4273-09-62 16:44:00 Test Item Value Reference Range Interpretation Comments POC V LA (test code = POC V LA) 1.1 0.5-2.2 [facility] CenterZywlautHACJVWVAG8319-01-14 16:44:00 Test Item Value Reference Range Interpretation Comments POC V pH (test code = POC V pH) 7.41 1 7.28-7.42 [facility] CenterPlqespwTRJPDKYIP4136-54-60 16:44:00 Test Item Value Reference Range Interpretation Comments POC V PCO2 (test code = POC V PCO2) 40 38-52 [facility] CenterYbshslhMIIAJCISW2877-69-57 16:44:00 Test Item Value Reference Range Interpretation Comments POC V PO2 (test code = POC V PO2) 41 20-49 [facility] CenterBfksrzlOWNMIXYSI9210-32-46 16:44:00 Test Item Value Reference Range Interpretation Comments POC V HCO3 (test code = POC V HCO3) [facility] CenterRforvlrEZGTOHMRD8614-35-94 16:44:00 Test Item Value Reference Range Interpretation Comments POC V BE (test code = POC V BE) 1 -2-2 [facility] CenterSqpislwOPMTGAIBL0860-15-94 16:44:00 Test Item Value Reference Range Interpretation Comments POC V O2 Sat (calc) (test code = POC V 76.8 40.0-70.0 O2 Sat (calc)) [facility] CenterYgcliupRFCJHHWML1399-26-68 16:44:00 Test Item Value Reference Range Interpretation Comments POC V Hgb Tot (test code = POC V Hgb 9.6 12.0-16.0 Tot) [facility] CenterOsuzmjfUOYTARBYA2897-76-97 16:44:00 Test Item Value Reference Range Interpretation Comments POC V Glu (test code = POC V Glu) 185 70-99 [facility] CenterGtlxrnlCDUZNXSGN7172-02-57 16:44:00 Test Item Value Reference Range Interpretation Comments POC V Hct (calc) (test code = POC V Hct 29.0 36.0-48.0 (calc)) [facility] CenterDgyqvpsIPWHHBIUH8800-44-27 16:44:00 Test Item Value Reference Range Interpretation Comments POC V BE (test code = POC V BE) 1 -2-2 [facility] CenterTtanecoYDSMFUOOL3540-37-00 16:44:00 Test Item Value Reference Range Interpretation Comments POC V Cl (test code = POC V Cl) 100 95-109 [facility] CenterAdigrutFAZJLGZXZ7495-02-20 16:44:00 Test Item Value Reference Range Interpretation Comments POC V Ca Ion at pH 7.4 (test code = POC 1.20 1.05-1.25 V Ca Ion at pH 7.4) [facility] CenterLukvtlfIXYNFIWJD7830-74-56 16:44:00 Test Item Value Reference Range Interpretation Comments POC V O2 Sat (calc) (test code = POC V 76.8 40.0-70.0 O2 Sat (calc)) [facility] CenterWnlejyxSZGSLKNPI2297-58-86 16:44:00 Test Item Value Reference Range Interpretation Comments POC V Hgb Tot (test code = POC V Hgb 9.6 12.0-16.0 Tot) [facility] CenterHyqkxpjGDAJKLFGL1496-72-18 16:44:00 Test Item Value Reference Range Interpretation Comments POC V Glu (test code = POC V Glu) 185 70-99 [facility] CenterDzjqjlbNWKFALBGG6922-37-04 16:44:00 Test Item Value Reference Range Interpretation Comments POC V Hct (calc) (test code = POC V Hct 29.0 36.0-48.0 (calc)) [facility] CenterAaryyftTLVAUPKFL5229-51-04 16:44:00 Test Item Value Reference Range Interpretation Comments POC V Cl (test code = POC V Cl) 100 95-109 [facility] CenterIsbtgmeRRWEPOYTB7857-46-67 16:44:00 Test Item Value Reference Range Interpretation Comments POC V Ca Ion at pH 7.4 (test code = POC 1.20 1.05-1.25 V Ca Ion at pH 7.4) [facility] CenterMxmjsmsSDATXAYZE7088-81-89 16:44:00 Test Item Value Reference Range Interpretation Comments POC V Source (test code = POC V Source) [facility] CenterPjuejsdNUWZFBZPY6513-71-49 16:44:00 Test Item Value Reference Range Interpretation Comments POC V Temp (test code = POC V Temp) 37.0 [facility] CenterWbmianpUFAUZPQDG0682-36-96 16:44:00 Test Item Value Reference Range Interpretation Comments POC V Ion Ca (test code = POC V Ion Ca) 1.20 1.05-1.25 [facility] CenterLzikjmqZSFKBRMBB9328-76-73 16:44:00 Test Item Value Reference Range Interpretation Comments POC V K (test code = POC V K) 4.0 3.5-5.1 [facility] CenterHxnypkbOQQUESHFY2059-95-93 16:44:00 Test Item Value Reference Range Interpretation Comments POC V Na (test code = POC V Na) 130 135-145 [facility] CenterOcrdsdwYTWCLVVZU3165-85-31 16:44:00 Test Item Value Reference Range Interpretation Comments POC V LA (test code = POC V LA) 1.1 0.5-2.2 [facility] CenterLxneeniVGSDSGRDG4784-69-97 16:44:00 Test Item Value Reference Range Interpretation Comments POC V pH (test code = POC V pH) 7.41 1 7.28-7.42 [facility] CenterKdlipahNZDCIKSDJ0422-26-24 16:44:00 Test Item Value Reference Range Interpretation Comments POC V PCO2 (test code = POC V PCO2) 40 38-52 [facility] CenterDfrmlrmJCBQPFDYO7397-40-55 16:44:00 Test Item Value Reference Range Interpretation Comments POC V PO2 (test code = POC V PO2) 41 20-49 [facility] CenterGgmhqgwOJPIIRHCE4932-26-47 16:44:00 Test Item Value Reference Range Interpretation Comments POC V HCO3 (test code = POC V HCO3) 25 22-26 [facility] CenterYeciispXWVEUYRMN5673-28-26 16:44:00 Test Item Value Reference Range Interpretation Comments POC V BE (test code = POC V BE) 1 -2-2 [facility] CenterCuynwhnUMJGIFFEV0657-17-69 16:44:00 Test Item Value Reference Range Interpretation Comments POC V O2 Sat (calc) (test code = POC V 76.8 40.0-70.0 O2 Sat (calc)) [facility] CenterBmcdrrbDQMPDAULB1109-98-29 16:44:00 Test Item Value Reference Range Interpretation Comments POC V Hgb Tot (test code = POC V Hgb 9.6 12.0-16.0 Tot) [facility] CenterVaowngbPWCVWLWJJ8523-30-73 16:44:00 Test Item Value Reference Range Interpretation Comments POC V Glu (test code = POC V Glu) 185 70-99 [facility] CenterQjcmzhqUSJPGQZVF9122-45-05 16:44:00 Test Item Value Reference Range Interpretation Comments POC V Hct (calc) (test code = POC V Hct 29.0 36.0-48.0 (calc)) [facility] CenterKwzwpxkAQJTZYTFW2939-58-59 16:44:00 Test Item Value Reference Range Interpretation Comments POC V Cl (test code = POC V Cl) 100 95-109 [facility] CenterJwlnfnuWUBHJRTVT4900-14-88 16:44:00 Test Item Value Reference Range Interpretation Comments POC V Ca Ion at pH 7.4 (test code = POC 1.20 1.05-1.25 V Ca Ion at pH 7.4) [facility] CenterKwlmzqtYZPDPXFNT3566-65-46 16:44:00 Test Item Value Reference Range Interpretation Comments POC V Source (test code = POC V Source) [place] [facility] CenterIsoruruMFOZFMWLX7899-12-72 16:44:00 Test Item Value Reference Range Interpretation Comments POC V Temp (test code = POC V Temp) 37.0 [facility] CenterEiqicwzHZDMWHAKF2819-73-53 16:44:00 Test Item Value Reference Range Interpretation Comments POC V Ion Ca (test code = POC V Ion Ca) 1.20 1.05-1.25 [facility] CenterWbxfjlmQYQYIDILG9518-61-14 16:44:00 Test Item Value Reference Range Interpretation Comments POC V K (test code = POC V K) 4.0 3.5-5.1 [facility] CenterHrrhlbuQQHCECYAA7512-65-83 16:44:00 Test Item Value Reference Range Interpretation Comments POC V Na (test code = POC V Na) 130 135-145 [facility] CenterImjqzgvRNSPZCRAS3590-70-39 16:44:00 Test Item Value Reference Range Interpretation Comments POC V LA (test code = POC V LA) 1.1 0.5-2.2 [facility] CenterKsucnepETDLIUIKA1320-99-74 16:44:00 Test Item Value Reference Range Interpretation Comments POC V pH (test code = POC V pH) 7.41 1 7.28-7.42 [facility] CenterQxbpirzHJVKCEVOB5361-11-25 16:44:00 Test Item Value Reference Range Interpretation Comments POC V PCO2 (test code = POC V PCO2) 40 38-52 [place] 223672-10-24 16:44:00 Test Item Value Reference Range Interpretation Comments POC V PO2 (test code = POC V PO2) 41 20-49 [facility] CenterLtbqkrkRQOMOQYWI0063-52-85 16:44:00 Test Item Value Reference Range Interpretation Comments POC V HCO3 (test code = POC V HCO3) 25 22-26 [facility] CenterNhbwfezLXGGUKFRF8868-76-83 16:44:00 Test Item Value Reference Range Interpretation Comments POC V BE (test code = POC V BE) 1 -2-2 [facility] CenterVrbpriqUELMUUEHJ7001-50-43 16:44:00 Test Item Value Reference Range Interpretation Comments POC V O2 Sat (calc) (test code = POC V 76.8 40.0-70.0 O2 Sat (calc)) [facility] CenterJlmslqtSIKJBEKTV1905-99-14 16:44:00 Test Item Value Reference Range Interpretation Comments POC V Hgb Tot (test code = POC V Hgb 9.6 12.0-16.0 Tot) [facility] CenterVarigzwXFHBVFRZO3726-42-57 16:44:00 Test Item Value Reference Range Interpretation Comments POC V Glu (test code = POC V Glu) 185 70-99 [facility] CenterRqugsinBHGHRAMKC9408-18-06 16:44:00 Test Item Value Reference Range Interpretation Comments POC V Hct (calc) (test code = POC V Hct 29.0 36.0-48.0 (calc)) [facility] CenterRlxukcnDKODVLYUY8622-00-04 16:44:00 Test Item Value Reference Range Interpretation Comments POC V Cl (test code = POC V Cl) 100 95-109 [facility] CenterBkozvgbLWICIKCQR3924-17-68 16:44:00 Test Item Value Reference Range Interpretation Comments POC V Ca Ion at pH 7.4 (test code = POC 1.20 1.05-1.25 V Ca Ion at pH 7.4) [facility] CenterYyiijraLFORJUBES2003-98-71 16:44:00 Test Item Value Reference Range Interpretation Comments POC V Source (test code = POC V Source) [facility] CenterVqajsagMFCTEPCNK9031-27-47 16:44:00 Test Item Value Reference Range Interpretation Comments POC V Temp (test code = POC V Temp) 37.0 [facility] CenterJjxclzbQHBMNATXM7510-98-96 16:44:00 Test Item Value Reference Range Interpretation Comments POC V Ion Ca (test code = POC V Ion Ca) 1.20 1.05-1.25 [facility] CenterZwzhoqwTCNWORYQC9173-12-83 16:44:00 Test Item Value Reference Range Interpretation Comments POC V K (test code = POC V K) 4.0 3.5-5.1 [facility] CenterDtmxuxeHWNICMVEI3207-12-32 16:44:00 Test Item Value Reference Range Interpretation Comments POC V Na (test code = POC V Na) 130 135-145 [facility] CenterYcgvpnpEUNFPHJNA4925-97-01 16:44:00 Test Item Value Reference Range Interpretation Comments POC V LA (test code = POC V LA) 1.1 0.5-2.2 [facility] CenterEuhcsfxXPXSPXKUX7636-20-07 16:44:00 Test Item Value Reference Range Interpretation Comments POC V pH (test code = POC V pH) 7.41 1 7.28-7.42 [place] 223672-10-24 16:44:00 Test Item Value Reference Range Interpretation Comments POC V PCO2 (test code = POC V PCO2) 40 38-52 [facility] CenterLimsxjeBQYDYPULB9903-60-40 16:44:00 Test Item Value Reference Range Interpretation Comments POC V PO2 (test code = POC V PO2) 41 20-49 [facility] CenterLjyjxkeGUSCHMKAK2123-70-41 16:44:00 Test Item Value Reference Range Interpretation Comments POC V HCO3 (test code = POC V HCO3) 25 22-26 [facility] CenterTygjnonWTMVRAFHE9787-42-80 16:44:00 Test Item Value Reference Range Interpretation Comments POC V BE (test code = POC V BE) 1 -2-2 [facility] CenterHpzjpcoKFOOHWFMD2154-14-13 16:44:00 Test Item Value Reference Range Interpretation Comments POC V O2 Sat (calc) (test code = POC V 76.8 40.0-70.0 O2 Sat (calc)) [facility] CenterMdguyeyHMCKBRAZN1779-90-72 16:44:00 Test Item Value Reference Range Interpretation Comments POC V Hgb Tot (test code = POC V Hgb 9.6 12.0-16.0 Tot) [facility] CenterJpchbsoAPUMIKODK2250-32-18 16:44:00 Test Item Value Reference Range Interpretation Comments POC V Glu (test code = POC V Glu) 185 70-99 [facility] CenterHdrymrgSPODRTETE3168-77-91 16:44:00 Test Item Value Reference Range Interpretation Comments POC V Hct (calc) (test code = POC V Hct 29.0 36.0-48.0 (calc)) [facility] CenterEqabyycTLQAUUFOD6880-75-12 16:44:00 Test Item Value Reference Range Interpretation Comments POC V Cl (test code = POC V Cl) 100 95-109 [place] 223672-10-24 16:44:00 Test Item Value Reference Range Interpretation Comments POC V Ca Ion at pH 7.4 (test code = POC 1.20 1.05-1.25 V Ca Ion at pH 7.4) [facility] CenterXrwvypdLFILFDCSE7415-79-19 16:44:00 Test Item Value Reference Range Interpretation Comments POC V Source (test code = POC V Source) [facility] CenterFpdhjztRHRKXWFWE2257-33-89 16:44:00 Test Item Value Reference Range Interpretation Comments POC V Temp (test code = POC V Temp) 37.0 [place] [address]-10-24 16:44:00 Test Item Value Reference Range Interpretation Comments POC V Ion Ca (test code = POC V Ion Ca) 1.20 1.05-1.25 [place] 223672-10-24 16:44:00 Test Item Value Reference Range Interpretation Comments POC V K (test code = POC V K) 4.0 3.5-5.1 [place] 223672-10-24 16:44:00 Test Item Value Reference Range Interpretation Comments POC V Na (test code = POC V Na) 130 135-145 [place] 223672-10-24 16:44:00 Test Item Value Reference Range Interpretation Comments POC V LA (test code = POC V LA) 1.1 0.5-2.2 [place] 223672-10-24 16:44:00 Test Item Value Reference Range Interpretation Comments POC V pH (test code = POC V pH) 7.41 1 7.28-7.42 [place] [address]-10-24 16:44:00 Test Item Value Reference Range Interpretation Comments POC V PCO2 (test code = POC V PCO2) 40 38-52 [place] 223672-10-24 16:44:00 Test Item Value Reference Range Interpretation Comments POC V PO2 (test code = POC V PO2) 41 20-49 [place] [address]-10-24 16:44:00 Test Item Value Reference Range Interpretation Comments POC V HCO3 (test code = POC V HCO3) 25 22-26 [facility] CenterAilkhaxDCEEWLBZN6929-29-86 16:44:00 Test Item Value Reference Range Interpretation Comments POC V BE (test code = POC V BE) 1 -2-2 [facility] CenterGczjookAOYSXUXFI9876-05-36 16:44:00 Test Item Value Reference Range Interpretation Comments POC V O2 Sat (calc) (test code = POC V 76.8 40.0-70.0 O2 Sat (calc)) [facility] CenterIymybczZTVFHDYXS8375-59-56 16:44:00 Test Item Value Reference Range Interpretation Comments POC V Hgb Tot (test code = POC V Hgb 9.6 12.0-16.0 Tot) [facility] CenterTnzyfzhDZTTPVUAJ1725-73-03 16:44:00 Test Item Value Reference Range Interpretation Comments POC V Glu (test code = POC V Glu) 185 70-99 [facility] CenterLaelirrUKQXMSXJP0192-75-79 16:44:00 Test Item Value Reference Range Interpretation Comments POC V Hct (calc) (test code = POC V Hct 29.0 36.0-48.0 (calc)) [facility] CenterZprzgdyHGCCLERQS5802-96-56 16:44:00 Test Item Value Reference Range Interpretation Comments POC V Cl (test code = POC V Cl) 100 95-109 [facility] CenterVrdvjtvPLOOZUDSI7182-39-12 16:44:00 Test Item Value Reference Range Interpretation Comments POC V Ca Ion at pH 7.4 (test code = POC 1.20 1.05-1.25 V Ca Ion at pH 7.4) [facility] CenterVbskpwzPCWXGNWGB2511-20-34 16:44:00 Test Item Value Reference Range Interpretation Comments POC V Source (test code = POC V Source) [facility] [facility] CenterIooeycuVUUNROLAV9901-13-64 16:44:00 Test Item Value Reference Range Interpretation Comments POC V Temp (test code = POC V Temp) 37.0 [facility] CenterQlenizmDAZGKTVYW7538-63-70 16:44:00 Test Item Value Reference Range Interpretation Comments POC V Ion Ca (test code = POC V Ion Ca) 1.20 1.05-1.25 [facility] CenterXauqsqzIYBPCIHOP7542-76-76 16:44:00 Test Item Value Reference Range Interpretation Comments POC V K (test code = POC V K) 4.0 3.5-5.1 [facility] CenterDrszrudLXWYOKBYY9743-63-33 16:44:00 Test Item Value Reference Range Interpretation Comments POC V Na (test code = POC V Na) 130 135-145 [facility] CenterGjhhistLHXONSVRL2940-19-49 16:44:00 Test Item Value Reference Range Interpretation Comments POC V LA (test code = POC V LA) 1.1 0.5-2.2 [facility] CenterQsxfgdwCWYPNXCYO8514-69-36 16:44:00 Test Item Value Reference Range Interpretation Comments POC V pH (test code = POC V pH) 7.41 1 7.28-7.42 [facility] CenterPewbyocKSHMSWYDW9002-58-76 16:44:00 Test Item Value Reference Range Interpretation Comments POC V PCO2 (test code = POC V PCO2) 40 38-52 [facility] CenterMoafdxiGTAOCTSML5035-74-00 16:44:00 Test Item Value Reference Range Interpretation Comments POC V PO2 (test code = POC V PO2) 41 20-49 [facility] CenterNymqixzNNUCBSHBE0640-51-93 16:44:00 Test Item Value Reference Range Interpretation Comments POC V HCO3 (test code = POC V HCO3) 25 22-26 [facility] CenterUduejkcBGYCWXBXH0656-33-32 16:44:00 Test Item Value Reference Range Interpretation Comments POC V BE (test code = POC V BE) 1 -2-2 [facility] CenterIonqsmrNIQKGFORA6464-53-53 16:44:00 Test Item Value Reference Range Interpretation Comments POC V O2 Sat (calc) (test code = POC V 76.8 40.0-70.0 O2 Sat (calc)) [facility] CenterBoxezhhRILNTBSCR0855-71-25 16:44:00 Test Item Value Reference Range Interpretation Comments POC V Hgb Tot (test code = POC V Hgb 9.6 12.0-16.0 Tot) [facility] CenterOdixcgfWLJJFFOPB3445-08-49 16:44:00 Test Item Value Reference Range Interpretation Comments POC V Glu (test code = POC V Glu) 185 70-99 [facility] CenterByqosrmJYIMQUVOU2468-67-93 16:44:00 Test Item Value Reference Range Interpretation Comments POC V Hct (calc) (test code = POC V Hct 29.0 36.0-48.0 (calc)) [facility] CenterQlffhthKTPPOOOHD1701-47-84 16:44:00 Test Item Value Reference Range Interpretation Comments POC V Cl (test code = POC V Cl) 100 95-109 [facility] CenterLmlvxsyAEYJYMFCO9630-14-74 16:44:00 Test Item Value Reference Range Interpretation Comments POC V Ca Ion at pH 7.4 (test code = POC 1.20 1.05-1.25 V Ca Ion at pH 7.4) [facility] CenterYflqsjdKMDJLCNFI3777-87-59 16:44:00 Test Item Value Reference Range Interpretation Comments POC V Source (test code = POC V Source) [facility] [facility] CenterLtdqiieFWSSRGYSC0063-59-93 16:44:00 Test Item Value Reference Range Interpretation Comments POC V Temp (test code = POC V Temp) 37.0 [place] 223672-10-24 16:44:00 Test Item Value Reference Range Interpretation Comments POC V Ion Ca (test code = POC V Ion Ca) 1.20 1.05-1.25 [facility] CenterYksabauYCPRSGEGW5021-00-76 16:44:00 Test Item Value Reference Range Interpretation Comments POC V K (test code = POC V K) 4.0 3.5-5.1 [facility] CenterPvfyfhvSHBHGVIZH2009-79-50 16:44:00 Test Item Value Reference Range Interpretation Comments POC V Na (test code = POC V Na) 130 135-145 [facility] CenterSzpoxvbOBFZVHWMZ9155-42-57 16:44:00 Test Item Value Reference Range Interpretation Comments POC V LA (test code = POC V LA) 1.1 0.5-2.2 [facility] CenterXtbjmraLSNXVAWLL1930-85-31 16:44:00 Test Item Value Reference Range Interpretation Comments POC V pH (test code = POC V pH) 7.41 1 7.28-7.42 [facility] CenterOkhxchhGINDWHWVI1371-93-27 16:44:00 Test Item Value Reference Range Interpretation Comments POC V PCO2 (test code = POC V PCO2) 40 38-52 [place] 223672-10-24 16:44:00 Test Item Value Reference Range Interpretation Comments POC V PO2 (test code = POC V PO2) 41 20-49 [place] 223672-10-24 16:44:00 Test Item Value Reference Range Interpretation Comments POC V HCO3 (test code = POC V HCO3) 25 22-26 [facility] CenterKersnvsEDIILYHCR5240-37-42 16:44:00 Test Item Value Reference Range Interpretation Comments POC V BE (test code = POC V BE) 1 -2-2 [facility] CenterUeclllyLMGHCAEDQ8062-80-28 16:44:00 Test Item Value Reference Range Interpretation Comments POC V O2 Sat (calc) (test code = POC V 76.8 40.0-70.0 O2 Sat (calc)) [facility] CenterEqpupplMHPBFYNAY2917-36-75 16:44:00 Test Item Value Reference Range Interpretation Comments POC V Hgb Tot (test code = POC V Hgb 9.6 12.0-16.0 Tot) [facility] CenterWxxjbkbUEWTBCFMK2646-56-29 16:44:00 Test Item Value Reference Range Interpretation Comments POC V Glu (test code = POC V Glu) 185 70-99 [facility] CenterDptgvmhPOEHWVOHI9072-36-39 16:44:00 Test Item Value Reference Range Interpretation Comments POC V Hct (calc) (test code = POC V Hct 29.0 36.0-48.0 (calc)) [facility] CenterRoyxwmlWEWONWSUJ8466-50-48 16:44:00 Test Item Value Reference Range Interpretation Comments POC V Cl (test code = POC V Cl) 100 95-109 [facility] CenterQqicbjzMRFFHOANL6888-72-73 16:44:00 Test Item Value Reference Range Interpretation Comments POC V Ca Ion at pH 7.4 (test code = POC 1.20 1.05-1.25 V Ca Ion at pH 7.4) [facility] CenterAmlxkseGQPOZUDQW5208-35-10 16:44:00 Test Item Value Reference Range Interpretation Comments POC V Source (test code = POC V Source) [place] [facility] CenterHorwrrdHHMDYKWDW6923-62-86 16:44:00 Test Item Value Reference Range Interpretation Comments POC V Temp (test code = POC V Temp) 37.0 [facility] CenterBojcswoSHONYWGEN3952-41-64 16:44:00 Test Item Value Reference Range Interpretation Comments POC V Ion Ca (test code = POC V Ion Ca) 1.20 1.05-1.25 [facility] CenterEcsixfxRAUWZJXYB3852-81-36 16:44:00 Test Item Value Reference Range Interpretation Comments POC V K (test code = POC V K) 4.0 3.5-5.1 [facility] CenterTdzznjyHZVMDBIKJ1422-24-80 16:44:00 Test Item Value Reference Range Interpretation Comments POC V Na (test code = POC V Na) 130 135-145 [facility] CenterJazjsxrFFIAYVBRU2184-98-29 16:44:00 Test Item Value Reference Range Interpretation Comments POC V LA (test code = POC V LA) 1.1 0.5-2.2 [facility] CenterKkgmcdyNPYUTQLLA8884-30-13 16:44:00 Test Item Value Reference Range Interpretation Comments POC V pH (test code = POC V pH) 7.41 1 7.28-7.42 [facility] CenterHlxmewjVICISOCRH9959-31-97 16:44:00 Test Item Value Reference Range Interpretation Comments POC V PCO2 (test code = POC V PCO2) 40 38-52 [facility] CenterPglpxdbXLWJNMYUA3735-16-29 16:44:00 Test Item Value Reference Range Interpretation Comments POC V PO2 (test code = POC V PO2) 41 20-49 [facility] CenterTdihhohKKOYETOEB7549-02-74 16:44:00 Test Item Value Reference Range Interpretation Comments POC V HCO3 (test code = POC V HCO3) 25 22-26 [facility] CenterOikwzesELKRUOEHN1133-13-74 16:44:00 Test Item Value Reference Range Interpretation Comments POC V BE (test code = POC V BE) 1 -2-2 [facility] CenterUyvdmqjQONHLLUUJ8269-52-94 16:44:00 Test Item Value Reference Range Interpretation Comments POC V O2 Sat (calc) (test code = POC V 76.8 40.0-70.0 O2 Sat (calc)) [facility] CenterQzaqndmHQPCZMCMB6234-59-05 16:44:00 Test Item Value Reference Range Interpretation Comments POC V Hgb Tot (test code = POC V Hgb 9.6 12.0-16.0 Tot) [facility] CenterPdeltsmGXTQJCRYI0790-75-12 16:44:00 Test Item Value Reference Range Interpretation Comments POC V Glu (test code = POC V Glu) 185 70-99 [facility] CenterXfltuufYQGDLGNMG2634-87-35 16:44:00 Test Item Value Reference Range Interpretation Comments POC V Hct (calc) (test code = POC V Hct 29.0 36.0-48.0 (calc)) [facility] CenterAiqcjoeNJMOCYRXP7885-03-88 16:44:00 Test Item Value Reference Range Interpretation Comments POC V Cl (test code = POC V Cl) 100 95-109 [facility] CenterZiieqdkEJARNJMZW6493-72-71 16:44:00 Test Item Value Reference Range Interpretation Comments POC V Ca Ion at pH 7.4 (test code = POC 1.20 1.05-1.25 V Ca Ion at pH 7.4) [facility] CenterIpzgsmiBGMZZLUAW1977-28-48 16:44:00 Test Item Value Reference Range Interpretation Comments POC V Source (test code = POC V Source) [place] [facility] CenterYlfhpisDLJJNAHAC3802-47-84 16:44:00 Test Item Value Reference Range Interpretation Comments POC V Temp (test code = POC V Temp) 37.0 [facility] CenterHugptrmDOXKDNLEX4221-73-04 16:44:00 Test Item Value Reference Range Interpretation Comments POC V Ion Ca (test code = POC V Ion Ca) 1.20 1.05-1.25 [facility] CenterNxgsiezWAAZWIAOK1508-66-50 16:44:00 Test Item Value Reference Range Interpretation Comments POC V K (test code = POC V K) 4.0 3.5-5.1 [facility] CenterGepxgfsZREVNGAHP3888-62-63 16:44:00 Test Item Value Reference Range Interpretation Comments POC V Na (test code = POC V Na) 130 135-145 [facility] CenterOifotviJZSLYOZZG1610-41-39 16:44:00 Test Item Value Reference Range Interpretation Comments POC V LA (test code = POC V LA) 1.1 0.5-2.2 [facility] CenterWvzssmpCSNDHOTML7658-33-79 16:44:00 Test Item Value Reference Range Interpretation Comments POC V pH (test code = POC V pH) 7.41 1 7.28-7.42 [facility] CenterWgmsinrUSOVXUCOX2640-65-36 16:44:00 Test Item Value Reference Range Interpretation Comments POC V PCO2 (test code = POC V PCO2) 40 38-52 [facility] CenterKoagmivVQGDPJBJW7916-40-16 16:44:00 Test Item Value Reference Range Interpretation Comments POC V PO2 (test code = POC V PO2) 41 20-49 [facility] CenterJmbcueyLRGUEFWWI9348-58-75 16:44:00 Test Item Value Reference Range Interpretation Comments POC V HCO3 (test code = POC V HCO3) 25 22-26 [facility] CenterNphwedcMELFUAHUX4604-74-58 16:44:00 Test Item Value Reference Range Interpretation Comments POC V BE (test code = POC V BE) 1 -2-2 [facility] CenterCjbqkhdCNISMDTFH8784-45-45 16:44:00 Test Item Value Reference Range Interpretation Comments POC V O2 Sat (calc) (test code = POC V 76.8 40.0-70.0 O2 Sat (calc)) [facility] CenterWhupnkmOENYWCXGP0488-81-60 16:44:00 Test Item Value Reference Range Interpretation Comments POC V Hgb Tot (test code = POC V Hgb 9.6 12.0-16.0 Tot) [facility] CenterJqkqtjaDNCWVMMUO5029-11-99 16:44:00 Test Item Value Reference Range Interpretation Comments POC V Glu (test code = POC V Glu) 185 70-99 [facility] CenterPldklpwXOIOTSTOG8448-65-71 16:44:00 Test Item Value Reference Range Interpretation Comments POC V Hct (calc) (test code = POC V Hct 29.0 36.0-48.0 (calc)) [facility] CenterEpcgfziNWXVMNDRO4653-39-33 16:44:00 Test Item Value Reference Range Interpretation Comments POC V Cl (test code = POC V Cl) 100 95-109 [facility] CenterRsgvkdgVBAWAVZYM3608-87-56 16:44:00 Test Item Value Reference Range Interpretation Comments POC V Ca Ion at pH 7.4 (test code = POC 1.20 1.05-1.25 V Ca Ion at pH 7.4) [facility] CenterMvmrxmbKEYLIBGAH0686-82-78 16:44:00 Test Item Value Reference Range Interpretation Comments POC V Source (test code = POC V Source) [place] [facility] CenterJwahbccORYCNUYRQ8717-75-88 16:44:00 Test Item Value Reference Range Interpretation Comments POC V Temp (test code = POC V Temp) 37.0 [place] 223672-10-24 16:44:00 Test Item Value Reference Range Interpretation Comments POC V Ion Ca (test code = POC V Ion Ca) 1.20 1.05-1.25 [facility] CenterHdmnkvmQHAOXVACY8768-04-10 16:44:00 Test Item Value Reference Range Interpretation Comments POC V K (test code = POC V K) 4.0 3.5-5.1 [facility] CenterUzneevpZUHTCJFAP9628-88-93 16:44:00 Test Item Value Reference Range Interpretation Comments POC V Na (test code = POC V Na) 130 135-145 [facility] CenterLntgrciCPRAHCXEC8591-31-58 16:44:00 Test Item Value Reference Range Interpretation Comments POC V LA (test code = POC V LA) 1.1 0.5-2.2 [place] [address]-10-24 16:44:00 Test Item Value Reference Range Interpretation Comments POC V pH (test code = POC V pH) 7.41 1 7.28-7.42 [facility] CenterRvlvuutGFXWFZBPW7328-27-79 16:44:00 Test Item Value Reference Range Interpretation Comments POC V PCO2 (test code = POC V PCO2) 40 38-52 [facility] CenterQbabireGBRHTKVLK7941-84-34 16:44:00 Test Item Value Reference Range Interpretation Comments POC V PO2 (test code = POC V PO2) 41 20-49 [facility] CenterXdujomuXYFVEKLQV2401-08-45 16:44:00 Test Item Value Reference Range Interpretation Comments POC V HCO3 (test code = POC V HCO3) 25 22-26 [facility] CenterUdervxyLEFJZWJJH6807-22-13 16:44:00 Test Item Value Reference Range Interpretation Comments POC V BE (test code = POC V BE) 1 -2-2 [facility] CenterXeipjcoHRWGGMXZB4028-14-72 16:44:00 Test Item Value Reference Range Interpretation Comments POC V O2 Sat (calc) (test code = POC V 76.8 40.0-70.0 O2 Sat (calc)) [facility] CenterIyrxkmsVCZUEVJTU2264-06-32 16:44:00 Test Item Value Reference Range Interpretation Comments POC V Hgb Tot (test code = POC V Hgb 9.6 12.0-16.0 Tot) [facility] CenterDnqunrxTVNTNBAHL0779-87-40 16:44:00 Test Item Value Reference Range Interpretation Comments POC V Glu (test code = POC V Glu) 185 70-99 [facility] CenterTjvgzfuVJBZNMRCJ6821-71-12 16:44:00 Test Item Value Reference Range Interpretation Comments POC V Hct (calc) (test code = POC V Hct 29.0 36.0-48.0 (calc)) [facility] CenterKpmcoeyQTKDKOELG8987-49-77 16:44:00 Test Item Value Reference Range Interpretation Comments POC V Cl (test code = POC V Cl) 100 95-109 [facility] CenterOffflndQTNRCXYLD8813-75-82 16:44:00 Test Item Value Reference Range Interpretation Comments POC V Ca Ion at pH 7.4 (test code = POC 1.20 1.05-1.25 V Ca Ion at pH 7.4) [facility] CenterEjerxzfDQGESSPWB3884-45-07 16:44:00 Test Item Value Reference Range Interpretation Comments POC V Source (test code = POC V Source) [place] [facility] CenterNbronlvVHMUARZRS7326-16-26 16:44:00 Test Item Value Reference Range Interpretation Comments POC V Temp (test code = POC V Temp) 37.0 [facility] CenterKsmqtgrHMSBXLNEF5570-62-71 16:44:00 Test Item Value Reference Range Interpretation Comments POC V Ion Ca (test code = POC V Ion Ca) 1.20 1.05-1.25 [facility] CenterLgyllfeGCDLQOBZE7391-97-89 16:44:00 Test Item Value Reference Range Interpretation Comments POC V K (test code = POC V K) 4.0 3.5-5.1 [facility] CenterNfxlaunIFRTOBCXN6287-16-98 16:44:00 Test Item Value Reference Range Interpretation Comments POC V Na (test code = POC V Na) 130 135-145 [facility] CenterAqhfbytGZOBWZYCH3611-65-29 16:44:00 Test Item Value Reference Range Interpretation Comments POC V LA (test code = POC V LA) 1.1 0.5-2.2 [facility] CenterDmmbzzvIKSZESMNA8138-54-36 16:44:00 Test Item Value Reference Range Interpretation Comments POC V pH (test code = POC V pH) 7.41 1 7.28-7.42 [facility] CenterOnhxnnaKQMKTRUDP7158-55-24 16:44:00 Test Item Value Reference Range Interpretation Comments POC V PCO2 (test code = POC V PCO2) 40 38-52 [facility] CenterVqiwhpnVYHRTZRXZ4230-92-71 16:44:00 Test Item Value Reference Range Interpretation Comments POC V PO2 (test code = POC V PO2) 41 20-49 [facility] CenterInttrmlFBHPAUIYV5719-29-04 16:44:00 Test Item Value Reference Range Interpretation Comments POC V HCO3 (test code = POC V HCO3) 25 22-26 [facility] CenterPsdwdkfLIPMKIJKE5152-45-96 16:44:00 Test Item Value Reference Range Interpretation Comments POC V BE (test code = POC V BE) 1 -2-2 [facility] CenterPzhpvyuBESGDULEZ8421-44-28 16:44:00 Test Item Value Reference Range Interpretation Comments POC V O2 Sat (calc) (test code = POC V 76.8 40.0-70.0 O2 Sat (calc)) [facility] CenterOqmuyrlBCTDXIMJJ8345-50-83 16:44:00 Test Item Value Reference Range Interpretation Comments POC V Hgb Tot (test code = POC V Hgb 9.6 12.0-16.0 Tot) [facility] CenterBbrzhumRRVHTRCCI6848-64-52 16:44:00 Test Item Value Reference Range Interpretation Comments POC V Glu (test code = POC V Glu) 185 70-99 [facility] CenterIdqdknyGHDCFMCCV9335-58-89 16:44:00 Test Item Value Reference Range Interpretation Comments POC V Hct (calc) (test code = POC V Hct 29.0 36.0-48.0 (calc)) [facility] CenterPzwrguzYUGXQOOQU3262-57-26 16:44:00 Test Item Value Reference Range Interpretation Comments POC V Cl (test code = POC V Cl) 100 95-109 [facility] CenterJqqfcxaYRJKBNEAG1705-74-72 16:44:00 Test Item Value Reference Range Interpretation Comments POC V Ca Ion at pH 7.4 (test code = POC 1.20 1.05-1.25 V Ca Ion at pH 7.4) [facility] CenterTufdqbfHTXVQARBW0153-95-06 16:44:00 Test Item Value Reference Range Interpretation Comments POC V Source (test code = POC V Source) [place] [facility] CenterXgjielnTPDVNCDCZ2976-07-34 16:44:00 Test Item Value Reference Range Interpretation Comments POC V Temp (test code = POC V Temp) 37.0 [facility] CenterXsymvrnMQICSIBXS0787-89-66 16:44:00 Test Item Value Reference Range Interpretation Comments POC V Ion Ca (test code = POC V Ion Ca) 1.20 1.05-1.25 [facility] CenterUxnhkmhHDJCYXPZD2379-31-60 16:44:00 Test Item Value Reference Range Interpretation Comments POC V K (test code = POC V K) 4.0 3.5-5.1 [facility] CenterFencachTRIFPAZOJ6706-17-76 16:44:00 Test Item Value Reference Range Interpretation Comments POC V Na (test code = POC V Na) 130 135-145 [facility] CenterBqrlxgfDSMRXNNCB5939-34-63 16:44:00 Test Item Value Reference Range Interpretation Comments POC V LA (test code = POC V LA) 1.1 0.5-2.2 [facility] CenterImzjdafGLQLDXILZ0744-65-55 16:44:00 Test Item Value Reference Range Interpretation Comments POC V pH (test code = POC V pH) 7.41 1 7.28-7.42 [place] [address]-10-24 16:44:00 Test Item Value Reference Range Interpretation Comments POC V PCO2 (test code = POC V PCO2) 40 38-52 [facility] CenterSaacrcvFZESVVHRR5841-93-35 16:44:00 Test Item Value Reference Range Interpretation Comments POC V PO2 (test code = POC V PO2) 41 20-49 [facility] CenterWqchkjkUGZRIEXOS3330-47-92 16:44:00 Test Item Value Reference Range Interpretation Comments POC V HCO3 (test code = POC V HCO3) 25 22-26 [facility] CenterTshrfihEDSBWFSGV3191-72-16 16:44:00 Test Item Value Reference Range Interpretation Comments POC V BE (test code = POC V BE) 1 -2-2 [facility] CenterSjvyvfoEGNAUDHIX9231-26-12 16:44:00 Test Item Value Reference Range Interpretation Comments POC V O2 Sat (calc) (test code = POC V 76.8 40.0-70.0 O2 Sat (calc)) [facility] CenterVyumenjYNQYWKXNQ9875-81-05 16:44:00 Test Item Value Reference Range Interpretation Comments POC V Hgb Tot (test code = POC V Hgb 9.6 12.0-16.0 Tot) [facility] CenterVjksrsqAMJDUPIIR4592-96-42 16:44:00 Test Item Value Reference Range Interpretation Comments POC V Glu (test code = POC V Glu) 185 70-99 [facility] CenterJhbxiaxZLVYBMMUQ9767-74-17 16:44:00 Test Item Value Reference Range Interpretation Comments POC V Hct (calc) (test code = POC V Hct 29.0 36.0-48.0 (calc)) [facility] CenterCliqjseKXCIYRZCU8210-32-64 16:44:00 Test Item Value Reference Range Interpretation Comments POC V Cl (test code = POC V Cl) 100 95-109 [facility] CenterItshggkNBBEDRESN7550-90-02 16:44:00 Test Item Value Reference Range Interpretation Comments POC V Ca Ion at pH 7.4 (test code = POC 1.20 1.05-1.25 V Ca Ion at pH 7.4) [facility] CenterMbwvhoqOUUBNCLRW6128-83-92 16:44:00 Test Item Value Reference Range Interpretation Comments POC V Source (test code = POC V Source) [facility] CenterNvlrsciIIFFHBVOS2122-24-45 16:44:00 Test Item Value Reference Range Interpretation Comments POC V Temp (test code = POC V Temp) 37.0 [facility] CenterOiskfpmSRQNZLMRB3514-53-94 16:44:00 Test Item Value Reference Range Interpretation Comments POC V Ion Ca (test code = POC V Ion Ca) 1.20 1.05-1.25 [facility] CenterNqtixygWKHWQPKZZ5036-83-97 16:44:00 Test Item Value Reference Range Interpretation Comments POC V K (test code = POC V K) 4.0 3.5-5.1 [facility] CenterXtbagkeTKFMHKHPO8148-58-22 16:44:00 Test Item Value Reference Range Interpretation Comments POC V Na (test code = POC V Na) 130 135-145 [facility] CenterFttywmqJNULCXECZ8691-88-09 16:44:00 Test Item Value Reference Range Interpretation Comments POC V LA (test code = POC V LA) 1.1 0.5-2.2 [facility] CenterQknzhlhGRRINXKRG0022-11-66 16:44:00 Test Item Value Reference Range Interpretation Comments POC V pH (test code = POC V pH) 7.41 1 7.28-7.42 [facility] CenterFywehgnWBVXESQQJ8086-51-09 16:44:00 Test Item Value Reference Range Interpretation Comments POC V PCO2 (test code = POC V PCO2) 40 38-52 [facility] CenterNqfuptzRSIOZEEFJ8822-10-06 16:44:00 Test Item Value Reference Range Interpretation Comments POC V PO2 (test code = POC V PO2) 41 20-49 [facility] CenterZcyzivmIXJZNLNWE1247-16-80 16:44:00 Test Item Value Reference Range Interpretation Comments POC V HCO3 (test code = POC V HCO3) 25 22-26 [facility] CenterFjzwgamEQMXVXYGU8508-73-29 16:44:00 Test Item Value Reference Range Interpretation Comments POC V BE (test code = POC V BE) 1 -2-2 [facility] CenterAitxcngJBOUKOOZY9919-88-20 16:44:00 Test Item Value Reference Range Interpretation Comments POC V O2 Sat (calc) (test code = POC V 76.8 40.0-70.0 O2 Sat (calc)) [facility] CenterWatflbsQKGGXYJMV1185-64-12 16:44:00 Test Item Value Reference Range Interpretation Comments POC V Hgb Tot (test code = POC V Hgb 9.6 12.0-16.0 Tot) [facility] CenterOyknqanZQMBDNEIZ2729-11-53 16:44:00 Test Item Value Reference Range Interpretation Comments POC V Glu (test code = POC V Glu) 185 70-99 [facility] CenterUwggrlaCQZIOWPYI4670-87-47 16:44:00 Test Item Value Reference Range Interpretation Comments POC V Hct (calc) (test code = POC V Hct 29.0 36.0-48.0 (calc)) [facility] CenterOygtihuMFISAICSB7414-10-64 16:44:00 Test Item Value Reference Range Interpretation Comments POC V Cl (test code = POC V Cl) 100 95-109 [facility] CenterYsyikkeVTOMFZHPW7606-89-82 16:44:00 Test Item Value Reference Range Interpretation Comments POC V Ca Ion at pH 7.4 (test code = POC 1.20 1.05-1.25 V Ca Ion at pH 7.4) [facility] CenterGzvoureTQYRNAUBJ0570-49-98 16:44:00 Test Item Value Reference Range Interpretation Comments POC V Source (test code = POC V Source) [facility] CenterBgvqexfHBHQJWUFU9867-21-97 16:44:00 Test Item Value Reference Range Interpretation Comments POC V Temp (test code = POC V Temp) 37.0 [facility] CenterWxtckszXGYNVHFNZ1823-38-26 16:44:00 Test Item Value Reference Range Interpretation Comments POC V Ion Ca (test code = POC V Ion Ca) 1.20 1.05-1.25 [facility] CenterCywuffbGSWBLFOFX0822-71-06 16:44:00 Test Item Value Reference Range Interpretation Comments POC V K (test code = POC V K) 4.0 3.5-5.1 [facility] CenterIhvlfffTNMZTKUMK2232-26-45 16:44:00 Test Item Value Reference Range Interpretation Comments POC V Na (test code = POC V Na) 130 135-145 [facility] CenterSerfwwqIONMBKQLY5340-68-58 16:44:00 Test Item Value Reference Range Interpretation Comments POC V LA (test code = POC V LA) 1.1 0.5-2.2 [facility] CenterPvvhnzhPDDIBZCHQ6461-77-06 16:44:00 Test Item Value Reference Range Interpretation Comments POC V pH (test code = POC V pH) 7.41 1 7.28-7.42 [place] 223672-10-24 16:44:00 Test Item Value Reference Range Interpretation Comments POC V PCO2 (test code = POC V PCO2) 40 38-52 [facility] CenterFyjrknjSRXSMNBPG6956-89-35 16:44:00 Test Item Value Reference Range Interpretation Comments POC V PO2 (test code = POC V PO2) 41 20-49 [facility] CenterMgipyzzVMYBFAPII5379-46-36 16:44:00 Test Item Value Reference Range Interpretation Comments POC V HCO3 (test code = POC V HCO3) 25 22-26 [facility] CenterAkbokvbGMQWVDMBT4515-07-69 16:44:00 Test Item Value Reference Range Interpretation Comments POC V BE (test code = POC V BE) 1 -2-2 [facility] CenterMymeixoOCCFUIQRW6159-12-70 16:44:00 Test Item Value Reference Range Interpretation Comments POC V O2 Sat (calc) (test code = POC V 76.8 40.0-70.0 O2 Sat (calc)) [facility] CenterFcmtqvmWLURBFLIO3022-82-61 16:44:00 Test Item Value Reference Range Interpretation Comments POC V Hgb Tot (test code = POC V Hgb 9.6 12.0-16.0 Tot) [facility] CenterBpaufvyESZMLBZNU1454-10-28 16:44:00 Test Item Value Reference Range Interpretation Comments POC V Glu (test code = POC V Glu) 185 70-99 [facility] CenterWnsxwssQTKGCOOFY5757-57-53 16:44:00 Test Item Value Reference Range Interpretation Comments POC V Hct (calc) (test code = POC V Hct 29.0 36.0-48.0 (calc)) [facility] CenterAunehyuPQEMXQLLT4658-44-70 16:44:00 Test Item Value Reference Range Interpretation Comments POC V Cl (test code = POC V Cl) 100 95-109 [facility] CenterBkbqksvKMXTTBTMN5977-70-18 16:44:00 Test Item Value Reference Range Interpretation Comments POC V Ca Ion at pH 7.4 (test code = POC 1.20 1.05-1.25 V Ca Ion at pH 7.4) [facility] CenterXsvlaymKZGKAOXSB6265-33-24 16:44:00 Test Item Value Reference Range Interpretation Comments POC V Source (test code = POC V Source) [facility] CenterYjvclnfMEJVUQCAH4066-21-66 16:44:00 Test Item Value Reference Range Interpretation Comments POC V Temp (test code = POC V Temp) 37.0 [facility] CenterHpttyaqCEWWAJSVX2863-15-78 16:44:00 Test Item Value Reference Range Interpretation Comments POC V Ion Ca (test code = POC V Ion Ca) 1.20 1.05-1.25 [facility] CenterHggmxmuNSSWFYUJR4107-56-14 16:44:00 Test Item Value Reference Range Interpretation Comments POC V K (test code = POC V K) 4.0 3.5-5.1 [facility] CenterWfxnikuFHIIFGVQQ9987-21-50 16:44:00 Test Item Value Reference Range Interpretation Comments POC V Na (test code = POC V Na) 130 135-145 [facility] CenterZnboxrkQYPGXSHER2780-90-85 16:44:00 Test Item Value Reference Range Interpretation Comments POC V LA (test code = POC V LA) 1.1 0.5-2.2 [facility] CenterFiaqdmkRIXIGDSZE9403-09-28 16:44:00 Test Item Value Reference Range Interpretation Comments POC V pH (test code = POC V pH) 7.41 1 7.28-7.42 [facility] CenterFwfygosXJMEGZVJM1511-02-40 16:44:00 Test Item Value Reference Range Interpretation Comments POC V PCO2 (test code = POC V PCO2) 40 38-52 [facility] CenterNfvngpwNZZIVJDPR7094-37-32 16:44:00 Test Item Value Reference Range Interpretation Comments POC V PO2 (test code = POC V PO2) 41 20-49 [facility] CenterFjjxyfhCCWVYXGTA1533-73-31 16:44:00 Test Item Value Reference Range Interpretation Comments POC V HCO3 (test code = POC V HCO3) 25 22-26 [facility] CenterZltexnwHCVERGVWZ6852-89-82 16:44:00 Test Item Value Reference Range Interpretation Comments POC V BE (test code = POC V BE) 1 -2-2 [facility] CenterAchpkmoSYHLOLEQX2582-84-81 16:44:00 Test Item Value Reference Range Interpretation Comments POC V O2 Sat (calc) (test code = POC V 76.8 40.0-70.0 O2 Sat (calc)) [facility] CenterGghoekjLIMXCQOPT2720-65-75 16:44:00 Test Item Value Reference Range Interpretation Comments POC V Hgb Tot (test code = POC V Hgb 9.6 12.0-16.0 Tot) [facility] CenterZwuhmgsXVXORXWXW2470-71-54 16:44:00 Test Item Value Reference Range Interpretation Comments POC V Glu (test code = POC V Glu) 185 70-99 [facility] CenterBznjfpaGJUMLUGDC3883-17-96 16:44:00 Test Item Value Reference Range Interpretation Comments POC V Hct (calc) (test code = POC V Hct 29.0 36.0-48.0 (calc)) [facility] CenterGnmlvtfDLEZVHHAN8266-01-40 16:44:00 Test Item Value Reference Range Interpretation Comments POC V Cl (test code = POC V Cl) 100 95-109 [facility] CenterStzahcsCWBHUBZLH5837-81-84 16:44:00 Test Item Value Reference Range Interpretation Comments POC V Ca Ion at pH 7.4 (test code = POC 1.20 1.05-1.25 V Ca Ion at pH 7.4) [facility] CenterKxpkosnLYLVQXGRO3001-86-86 16:44:00 Test Item Value Reference Range Interpretation Comments POC V Source (test code = POC V Source) [facility] [facility] CenterMibdfyfCHNRWJXLF3308-47-81 16:44:00 Test Item Value Reference Range Interpretation Comments POC V Temp (test code = POC V Temp) 37.0 [place] [address]-10-24 16:44:00 Test Item Value Reference Range Interpretation Comments POC V Ion Ca (test code = POC V Ion Ca) 1.20 1.05-1.25 [facility] CenterIgtnupjJPOUQQEVC8234-71-93 16:44:00 Test Item Value Reference Range Interpretation Comments POC V K (test code = POC V K) 4.0 3.5-5.1 [facility] CenterVgycqmtCKXEWQHXE4839-80-85 16:44:00 Test Item Value Reference Range Interpretation Comments POC V Na (test code = POC V Na) 130 135-145 [place] [address]-10-24 16:44:00 Test Item Value Reference Range Interpretation Comments POC V LA (test code = POC V LA) 1.1 0.5-2.2 [facility] CenterFbbxmahKTWRPYMZA9415-98-02 16:44:00 Test Item Value Reference Range Interpretation Comments POC V pH (test code = POC V pH) 7.41 1 7.28-7.42 [place] [address]-10-24 16:44:00 Test Item Value Reference Range Interpretation Comments POC V PCO2 (test code = POC V PCO2) 40 38-52 [place] 223672-10-24 16:44:00 Test Item Value Reference Range Interpretation Comments POC V PO2 (test code = POC V PO2) 41 20-49 [facility] CenterIsarrihZFSHPRPHH1397-21-06 16:44:00 Test Item Value Reference Range Interpretation Comments POC V HCO3 (test code = POC V HCO3) 25 22-26 [facility] CenterTqeiexjOZTRABMDC3813-87-42 16:44:00 Test Item Value Reference Range Interpretation Comments POC V BE (test code = POC V BE) 1 -2-2 [facility] CenterWlnoeogZCEKSFDVD8421-95-21 16:44:00 Test Item Value Reference Range Interpretation Comments POC V O2 Sat (calc) (test code = POC V 76.8 40.0-70.0 O2 Sat (calc)) [facility] CenterVuoriupKJLNVHCPV8377 16:44:00 Test Item Value Reference Range Interpretation Comments POC V Hgb Tot (test code = POC V Hgb 9.6 12.0-16.0 Tot) [facility] CenterPofxmhcWFQKJFBHM1923-94-45 16:44:00 Test Item Value Reference Range Interpretation Comments POC V Glu (test code = POC V Glu) 185 70-99 [facility] CenterZpmyzhrAHLTVARZU5881-93-73 16:44:00 Test Item Value Reference Range Interpretation Comments POC V Hct (calc) (test code = POC V Hct 29.0 36.0-48.0 (calc)) [facility] CenterJlbsskxIXBULZFNE2444-01-81 16:44:00 Test Item Value Reference Range Interpretation Comments POC V Cl (test code = POC V Cl) 100 95-109 [facility] CenterGaozngjKKEEPQVNZ6950-96-48 16:44:00 Test Item Value Reference Range Interpretation Comments POC V Ca Ion at pH 7.4 (test code = POC 1.20 1.05-1.25 V Ca Ion at pH 7.4) [facility] CenterUglfovbPGDICYNRP7886-81-41 16:44:00 Test Item Value Reference Range Interpretation Comments POC V Source (test code = POC V Source) [place] [facility] CenterFehapotCGJMQKGXL5013-64-38 16:44:00 Test Item Value Reference Range Interpretation Comments POC V Temp (test code = POC V Temp) 37.0 [facility] CenterNlrobsrOHKLYIHFD3110-23-70 16:44:00 Test Item Value Reference Range Interpretation Comments POC V Ion Ca (test code = POC V Ion Ca) 1.20 1.05-1.25 [facility] CenterMprprmwDEXJOXPUB4306-64-64 16:44:00 Test Item Value Reference Range Interpretation Comments POC V K (test code = POC V K) 4.0 3.5-5.1 [place] [address]-10-24 16:44:00 Test Item Value Reference Range Interpretation Comments POC V Na (test code = POC V Na) 130 135-145 [facility] CenterYrrvzwqCVBWWKFNF6123-79-74 16:44:00 Test Item Value Reference Range Interpretation Comments POC V LA (test code = POC V LA) 1.1 0.5-2.2 [facility] CenterWcmrlouNHWNCYSUQ8353-35-95 16:44:00 Test Item Value Reference Range Interpretation Comments POC V pH (test code = POC V pH) 7.41 1 7.28-7.42 [facility] CenterBbblhuaXTATIQZQP5001-56-97 16:44:00 Test Item Value Reference Range Interpretation Comments POC V PCO2 (test code = POC V PCO2) 40 38-52 [facility] CenterPvtpqleENUTAAOBA7899-76-36 16:44:00 Test Item Value Reference Range Interpretation Comments POC V PO2 (test code = POC V PO2) 41 20-49 [facility] CenterLnhcpekBLMOISIFM6185-21-08 16:44:00 Test Item Value Reference Range Interpretation Comments POC V HCO3 (test code = POC V HCO3) 25 22-26 [facility] CenterJmorncnHKTIAQIZE0358-31-09 16:44:00 Test Item Value Reference Range Interpretation Comments POC V BE (test code = POC V BE) 1 -2-2 [facility] CenterVvgkgejWILRAGROU5402-97-43 16:44:00 Test Item Value Reference Range Interpretation Comments POC V O2 Sat (calc) (test code = POC V 76.8 40.0-70.0 O2 Sat (calc)) [facility] CenterPebipawVQUCSKJZI9702-32-08 16:44:00 Test Item Value Reference Range Interpretation Comments POC V Hgb Tot (test code = POC V Hgb 9.6 12.0-16.0 Tot) [facility] CenterZvlowcvSHIUUZJTM5708-02-90 16:44:00 Test Item Value Reference Range Interpretation Comments POC V Glu (test code = POC V Glu) 185 70-99 [facility] CenterNfbzowaVYIFSTDBS2094-60-43 16:44:00 Test Item Value Reference Range Interpretation Comments POC V Hct (calc) (test code = POC V Hct 29.0 36.0-48.0 (calc)) [facility] CenterEplcjekXNDVTCXHF7784-82-82 16:44:00 Test Item Value Reference Range Interpretation Comments POC V Cl (test code = POC V Cl) 100 95-109 [facility] CenterJumgzofFMXWVMQZV0029-67-33 16:44:00 Test Item Value Reference Range Interpretation Comments POC V Ca Ion at pH 7.4 (test code = POC 1.20 1.05-1.25 V Ca Ion at pH 7.4) [facility] CenterGiskcmpPXZOFWJCR8828-84-77 16:44:00 Test Item Value Reference Range Interpretation Comments POC V Source (test code = POC V Source) [facility] [facility] CenterLtizoygSDSPQHQQC8250-89-80 16:44:00 Test Item Value Reference Range Interpretation Comments POC V Temp (test code = POC V Temp) 37.0 [facility] CenterMxzrspdBHTIZUNBE5709-46-59 16:44:00 Test Item Value Reference Range Interpretation Comments POC V Ion Ca (test code = POC V Ion Ca) 1.20 1.05-1.25 [facility] CenterZubibfhJVNTVDTXR5826-20-97 16:44:00 Test Item Value Reference Range Interpretation Comments POC V K (test code = POC V K) 4.0 3.5-5.1 [facility] CenterQqvobdyHSQPBKHYD9273-41-65 16:44:00 Test Item Value Reference Range Interpretation Comments POC V Na (test code = POC V Na) 130 135-145 [facility] CenterJbzivxgUAGOHYVXY5778-71-26 16:44:00 Test Item Value Reference Range Interpretation Comments POC V LA (test code = POC V LA) 1.1 0.5-2.2 [place] [address]-10-24 16:44:00 Test Item Value Reference Range Interpretation Comments POC V pH (test code = POC V pH) 7.41 1 7.28-7.42 [place] 223672-10-24 16:44:00 Test Item Value Reference Range Interpretation Comments POC V PCO2 (test code = POC V PCO2) 40 38-52 [place] [address]-10-24 16:44:00 Test Item Value Reference Range Interpretation Comments POC V PO2 (test code = POC V PO2) 41 20-49 [place] 223672-10-24 16:44:00 Test Item Value Reference Range Interpretation Comments POC V HCO3 (test code = POC V HCO3) 25 22-26 [facility] CenterAlpawxxGCNQUJYDN7154-69-78 16:44:00 Test Item Value Reference Range Interpretation Comments POC V BE (test code = POC V BE) 1 -2-2 [facility] CenterHegtpnlVEGDKTDQX1045-92-36 16:44:00 Test Item Value Reference Range Interpretation Comments POC V O2 Sat (calc) (test code = POC V 76.8 40.0-70.0 O2 Sat (calc)) [facility] CenterBmuyvqnAKXMXVXXO9489-95-44 16:44:00 Test Item Value Reference Range Interpretation Comments POC V Hgb Tot (test code = POC V Hgb 9.6 12.0-16.0 Tot) [facility] CenterGljyeikSBYSZFUTS0178-02-19 16:44:00 Test Item Value Reference Range Interpretation Comments POC V Glu (test code = POC V Glu) 185 70-99 [facility] CenterOvrllcsWYCEKQALD5748-81-68 16:44:00 Test Item Value Reference Range Interpretation Comments POC V Hct (calc) (test code = POC V Hct 29.0 36.0-48.0 (calc)) [facility] CenterFzbdotqPOGUTKCJT9578-60-95 16:44:00 Test Item Value Reference Range Interpretation Comments POC V Cl (test code = POC V Cl) 100 95-109 [facility] CenterKdkhhgaGEFLSLFHC1989-21-17 16:44:00 Test Item Value Reference Range Interpretation Comments POC V Ca Ion at pH 7.4 (test code = POC 1.20 1.05-1.25 V Ca Ion at pH 7.4) [facility] CenterEzfntnrWAEGLZDCS6423-31-98 16:44:00 Test Item Value Reference Range Interpretation Comments POC V Source (test code = POC V Source) [place] [facility] CenterJjyricyMJAQFCQHJ6973-94-85 16:44:00 Test Item Value Reference Range Interpretation Comments POC V Temp (test code = POC V Temp) 37.0 [facility] CenterBgvkrxvFTYTOCPPM3253-10-87 16:44:00 Test Item Value Reference Range Interpretation Comments POC V Ion Ca (test code = POC V Ion Ca) 1.20 1.05-1.25 [facility] CenterPqfhcfqASPJAPQHQ7064-38-94 16:44:00 Test Item Value Reference Range Interpretation Comments POC V K (test code = POC V K) 4.0 3.5-5.1 [facility] CenterMpyoohoQHRUYWWDS7056-85-68 16:44:00 Test Item Value Reference Range Interpretation Comments POC V Na (test code = POC V Na) 130 135-145 [facility] CenterYrtdlxyOSWVPYTXJ5919-48-23 16:44:00 Test Item Value Reference Range Interpretation Comments POC V LA (test code = POC V LA) 1.1 0.5-2.2 [facility] CenterQsozugxBPHTJFCMH4013-15-41 16:44:00 Test Item Value Reference Range Interpretation Comments POC V pH (test code = POC V pH) 7.41 1 7.28-7.42 [place] 223672-10-24 16:44:00 Test Item Value Reference Range Interpretation Comments POC V PCO2 (test code = POC V PCO2) 40 38-52 [facility] CenterTzmlhjnQRQGMAJHJ6365-40-33 16:44:00 Test Item Value Reference Range Interpretation Comments POC V PO2 (test code = POC V PO2) 41 20-49 [facility] CenterXrqkcyhAETZKGKUF2159-09-57 16:44:00 Test Item Value Reference Range Interpretation Comments POC V HCO3 (test code = POC V HCO3) 25 22-26 [facility] CenterDcczzehZBMGRVLRC9826-64-38 16:44:00 Test Item Value Reference Range Interpretation Comments POC V BE (test code = POC V BE) 1 -2-2 [facility] CenterUviimfpTAOHRVKNT4198-59-50 16:44:00 Test Item Value Reference Range Interpretation Comments POC V O2 Sat (calc) (test code = POC V 76.8 40.0-70.0 O2 Sat (calc)) [facility] CenterOtqcksiCHOVRPDVY3556-33-05 16:44:00 Test Item Value Reference Range Interpretation Comments POC V Hgb Tot (test code = POC V Hgb 9.6 12.0-16.0 Tot) [facility] CenterWixgikvYWYXCHGKP4097-98-03 16:44:00 Test Item Value Reference Range Interpretation Comments POC V Glu (test code = POC V Glu) 185 70-99 [facility] CenterMyptjfhVWOGMXKWU3363-96-81 16:44:00 Test Item Value Reference Range Interpretation Comments POC V Hct (calc) (test code = POC V Hct 29.0 36.0-48.0 (calc)) [facility] CenterDxeoddhHZDPWXWYJ0017-61-43 16:44:00 Test Item Value Reference Range Interpretation Comments POC V Cl (test code = POC V Cl) 100 95-109 [facility] CenterKsjiaxmHXQDHTGCI7183-19-86 16:44:00 Test Item Value Reference Range Interpretation Comments POC V Ca Ion at pH 7.4 (test code = POC 1.20 1.05-1.25 V Ca Ion at pH 7.4) [facility] CenterLcqwantBWDUALVQL0730-53-99 16:44:00 Test Item Value Reference Range Interpretation Comments POC V Source (test code = POC V Source) [place] [facility] CenterQsefvenTSWPWQPIG8923-14-58 16:44:00 Test Item Value Reference Range Interpretation Comments POC V Temp (test code = POC V Temp) 37.0 [facility] CenterVbvrpbdUZNZTPUEK4903-22-27 16:44:00 Test Item Value Reference Range Interpretation Comments POC V Ion Ca (test code = POC V Ion Ca) 1.20 1.05-1.25 [facility] CenterNspnepjNGGDIAOHF6488-04-32 16:44:00 Test Item Value Reference Range Interpretation Comments POC V K (test code = POC V K) 4.0 3.5-5.1 [facility] CenterFhddkcuQBJNKTGJJ9554-97-36 16:44:00 Test Item Value Reference Range Interpretation Comments POC V Na (test code = POC V Na) 130 135-145 [facility] CenterApbxmvwDVJQLDNCQ6865-10-30 16:44:00 Test Item Value Reference Range Interpretation Comments POC V LA (test code = POC V LA) 1.1 0.5-2.2 [facility] CenterQulnjxmCOHIUAYGX5168-37-63 16:44:00 Test Item Value Reference Range Interpretation Comments POC V pH (test code = POC V pH) 7.41 1 7.28-7.42 [facility] CenterMbraqmuJMHFYAMQN8821-12-26 16:44:00 Test Item Value Reference Range Interpretation Comments POC V PCO2 (test code = POC V PCO2) 40 38-52 [facility] CenterKtpglkoPXGAJCAUG5831-43-13 16:44:00 Test Item Value Reference Range Interpretation Comments POC V PO2 (test code = POC V PO2) 41 20-49 [facility] CenterMnwitohLMVWOCTQX4440-81-61 16:44:00 Test Item Value Reference Range Interpretation Comments POC V HCO3 (test code = POC V HCO3) 25 22-26 [facility] CenterSiwgtorBBWGGJNJB4585-72-30 16:44:00 Test Item Value Reference Range Interpretation Comments POC V BE (test code = POC V BE) 1 -2-2 [facility] CenterHvyaxzqMDHXATRSX4588-31-22 16:44:00 Test Item Value Reference Range Interpretation Comments POC V O2 Sat (calc) (test code = POC V 76.8 40.0-70.0 O2 Sat (calc)) [facility] CenterMmcxyciMBTMGNFJV5345-65-76 16:44:00 Test Item Value Reference Range Interpretation Comments POC V Hgb Tot (test code = POC V Hgb 9.6 12.0-16.0 Tot) [facility] CenterAtyjoojLISJZNIIU7741-05-73 16:44:00 Test Item Value Reference Range Interpretation Comments POC V Glu (test code = POC V Glu) 185 70-99 [facility] CenterAaekcoqTWOAAITDR7236-94-58 16:44:00 Test Item Value Reference Range Interpretation Comments POC V Hct (calc) (test code = POC V Hct 29.0 36.0-48.0 (calc)) [facility] CenterJhkjuduBVIYUSEZT1962-89-22 16:44:00 Test Item Value Reference Range Interpretation Comments POC V Cl (test code = POC V Cl) 100 95-109 [facility] CenterJxabvroADLRBGUOJ3036-63-01 16:44:00 Test Item Value Reference Range Interpretation Comments POC V Ca Ion at pH 7.4 (test code = POC 1.20 1.05-1.25 V Ca Ion at pH 7.4) [facility] CenterVdhodpyPYECZWCTL8705-33-41 16:44:00 Test Item Value Reference Range Interpretation Comments POC V Source (test code = POC V Source) [facility] CenterXgqzccjCGXPHPACK3449-08-26 16:44:00 Test Item Value Reference Range Interpretation Comments POC V Temp (test code = POC V Temp) 37.0 [place] [address]-10-24 16:44:00 Test Item Value Reference Range Interpretation Comments POC V Ion Ca (test code = POC V Ion Ca) 1.20 1.05-1.25 [place] 223672-10-24 16:44:00 Test Item Value Reference Range Interpretation Comments POC V K (test code = POC V K) 4.0 3.5-5.1 [facility] CenterDnalwrhAOJXGDTXI4419-79-64 16:44:00 Test Item Value Reference Range Interpretation Comments POC V Na (test code = POC V Na) 130 135-145 [facility] CenterLfvtbjoZMNXGIFLG3091-58-72 16:44:00 Test Item Value Reference Range Interpretation Comments POC V LA (test code = POC V LA) 1.1 0.5-2.2 [place] 223672-10-24 16:44:00 Test Item Value Reference Range Interpretation Comments POC V pH (test code = POC V pH) 7.41 1 7.28-7.42 [facility] CenterZevgolqHCQWCEDVB4034-88-63 16:44:00 Test Item Value Reference Range Interpretation Comments POC V PCO2 (test code = POC V PCO2) 40 38-52 [facility] CenterWtacybhUCGXRDPTL4308-75-70 16:44:00 Test Item Value Reference Range Interpretation Comments POC V PO2 (test code = POC V PO2) 41 20-49 [facility] CenterQtdwouiJVKBDWBHN7555-99-54 16:44:00 Test Item Value Reference Range Interpretation Comments POC V HCO3 (test code = POC V HCO3) 25 22-26 [facility] CenterBwvxfrrVYVTEYJBR5511-03-02 16:44:00 Test Item Value Reference Range Interpretation Comments POC V BE (test code = POC V BE) 1 -2-2 [facility] CenterJaqxewyCMAYOEBEQ7408-99-93 16:44:00 Test Item Value Reference Range Interpretation Comments POC V O2 Sat (calc) (test code = POC V 76.8 40.0-70.0 O2 Sat (calc)) [facility] CenterGnmixqmWHSZTTLPE9813-55-59 16:44:00 Test Item Value Reference Range Interpretation Comments POC V Hgb Tot (test code = POC V Hgb 9.6 12.0-16.0 Tot) [facility] CenterFbtiyrlDWQGKNOYJ1826-78-31 16:44:00 Test Item Value Reference Range Interpretation Comments POC V Glu (test code = POC V Glu) 185 70-99 [facility] CenterHiobhifDGFJCIKPE3130-17-40 16:44:00 Test Item Value Reference Range Interpretation Comments POC V Hct (calc) (test code = POC V Hct 29.0 36.0-48.0 (calc)) [facility] CenterZlfdyugOYWKASUBK3496-76-68 16:44:00 Test Item Value Reference Range Interpretation Comments POC V Cl (test code = POC V Cl) 100 95-109 [facility] CenterSihmsflGLNHEYUSK9261-76-87 16:44:00 Test Item Value Reference Range Interpretation Comments POC V Ca Ion at pH 7.4 (test code = POC 1.20 1.05-1.25 V Ca Ion at pH 7.4) [facility] CenterZaawoxfGGZBBXMFM6215-39-21 16:44:00 Test Item Value Reference Range Interpretation Comments POC V Source (test code = POC V Source) [place] 223672-10-24 16:44:00 Test Item Value Reference Range Interpretation Comments POC V Temp (test code = POC V Temp) 37.0 [facility] CenterMfiqgneMBGQOCRMQ7733-50-97 16:44:00 Test Item Value Reference Range Interpretation Comments POC V Ion Ca (test code = POC V Ion Ca) 1.20 1.05-1.25 [facility] CenterTqytfjhPYWWGUYDP9066-17-00 16:44:00 Test Item Value Reference Range Interpretation Comments POC V K (test code = POC V K) 4.0 3.5-5.1 [facility] CenterXawlmbuUQMXYBBZM8022-58-50 16:44:00 Test Item Value Reference Range Interpretation Comments POC V Na (test code = POC V Na) 130 135-145 [facility] CenterIosphyqYSOZVDDJP2747-04-30 16:44:00 Test Item Value Reference Range Interpretation Comments POC V LA (test code = POC V LA) 1.1 0.5-2.2 [facility] CenterIgapchlYJDNIEKLY0419-92-76 16:44:00 Test Item Value Reference Range Interpretation Comments POC V pH (test code = POC V pH) 7.41 1 7.28-7.42 [facility] CenterTmunwjrBDVAHMPOI7890-30-23 16:44:00 Test Item Value Reference Range Interpretation Comments POC V PCO2 (test code = POC V PCO2) 40 38-52 [facility] CenterZycywgvSDIQTSHVR8881-62-61 16:44:00 Test Item Value Reference Range Interpretation Comments POC V PO2 (test code = POC V PO2) 41 20-49 [facility] CenterCtcswedAOJINLMPU2280-63-24 16:44:00 Test Item Value Reference Range Interpretation Comments POC V HCO3 (test code = POC V HCO3) 25 22-26 [facility] CenterWatkxjnXUJPMVTBF3358-74-18 16:44:00 Test Item Value Reference Range Interpretation Comments POC V BE (test code = POC V BE) 1 -2-2 [facility] CenterFwbqkiwYVVEDVFYH1107-86-62 16:44:00 Test Item Value Reference Range Interpretation Comments POC V O2 Sat (calc) (test code = POC V 76.8 40.0-70.0 O2 Sat (calc)) [facility] CenterQyjddvuVCVIBFDNC6365-06-10 16:44:00 Test Item Value Reference Range Interpretation Comments POC V Hgb Tot (test code = POC V Hgb 9.6 12.0-16.0 Tot) [facility] CenterRyschyhXZNRODORK2043-38-93 16:44:00 Test Item Value Reference Range Interpretation Comments POC V Glu (test code = POC V Glu) 185 70-99 [facility] CenterAflksszIBDHBHQMN3862-30-58 16:44:00 Test Item Value Reference Range Interpretation Comments POC V Hct (calc) (test code = POC V Hct 29.0 36.0-48.0 (calc)) [facility] CenterGpucxuxZEMSJOMPM3695-90-16 16:44:00 Test Item Value Reference Range Interpretation Comments POC V Cl (test code = POC V Cl) 100 95-109 [facility] CenterWslllidHLEWNIIRD6092-94-95 16:44:00 Test Item Value Reference Range Interpretation Comments POC V Ca Ion at pH 7.4 (test code = POC 1.20 1.05-1.25 V Ca Ion at pH 7.4) [facility] CenterChxffshOSVBXMWSZ5864-12-40 16:44:00 Test Item Value Reference Range Interpretation Comments POC V Source (test code = POC V Source) [place] [facility] CenterWubajpnELRJNGOFW3827-27-47 16:44:00 Test Item Value Reference Range Interpretation Comments POC V Temp (test code = POC V Temp) 37.0 [facility] CenterMkhmawaKGJEOFLUI9016-12-36 16:44:00 Test Item Value Reference Range Interpretation Comments POC V Ion Ca (test code = POC V Ion Ca) 1.20 1.05-1.25 [facility] CenterKghdrkbZMNIXNPDD2262-16-92 16:44:00 Test Item Value Reference Range Interpretation Comments POC V K (test code = POC V K) 4.0 3.5-5.1 [facility] CenterJpptwbnMHKOBXYUU9630-61-09 16:44:00 Test Item Value Reference Range Interpretation Comments POC V Na (test code = POC V Na) 130 135-145 [facility] CenterHhlwnacFVLEFPRMO5698-83-73 16:44:00 Test Item Value Reference Range Interpretation Comments POC V LA (test code = POC V LA) 1.1 0.5-2.2 [facility] CenterAqqovoeODHKQZSWF6028-18-04 16:44:00 Test Item Value Reference Range Interpretation Comments POC V pH (test code = POC V pH) 7.41 1 7.28-7.42 [facility] CenterZhkszheUPJOINPNE3699-05-07 16:44:00 Test Item Value Reference Range Interpretation Comments POC V PCO2 (test code = POC V PCO2) 40 38-52 [facility] CenterFjdvlgpMBILKAXTD1005-78-11 16:44:00 Test Item Value Reference Range Interpretation Comments POC V PO2 (test code = POC V PO2) 41 20-49 [facility] CenterDdtqeifUGSFIHLRQ3771-63-34 16:44:00 Test Item Value Reference Range Interpretation Comments POC V HCO3 (test code = POC V HCO3) 25 22-26 [facility] CenterEzdcettTHYPICEHQ0883-02-96 16:44:00 Test Item Value Reference Range Interpretation Comments POC V BE (test code = POC V BE) 1 -2-2 [facility] CenterQxkncuvEGRQFDJHU2245-51-49 16:44:00 Test Item Value Reference Range Interpretation Comments POC V O2 Sat (calc) (test code = POC V 76.8 40.0-70.0 O2 Sat (calc)) [facility] CenterZuvalqwDVQNGBTFU9759-03-14 16:44:00 Test Item Value Reference Range Interpretation Comments POC V Hgb Tot (test code = POC V Hgb 9.6 12.0-16.0 Tot) [facility] CenterVpknobuVZJMBGXZX5767-84-73 16:44:00 Test Item Value Reference Range Interpretation Comments POC V Glu (test code = POC V Glu) 185 70-99 [facility] CenterVrtkxshLMURUAAMV1902-20-70 16:44:00 Test Item Value Reference Range Interpretation Comments POC V Hct (calc) (test code = POC V Hct 29.0 36.0-48.0 (calc)) [facility] CenterUtjabheBCVJKKKGO6486-61-50 16:44:00 Test Item Value Reference Range Interpretation Comments POC V Cl (test code = POC V Cl) 100 95-109 [facility] CenterFqonyhcICRODNXQD6797-81-76 16:44:00 Test Item Value Reference Range Interpretation Comments POC V Ca Ion at pH 7.4 (test code = POC 1.20 1.05-1.25 V Ca Ion at pH 7.4) [facility] CenterYsxhimoGDFWWCEGR2818-22-76 16:44:00 Test Item Value Reference Range Interpretation Comments POC V Source (test code = POC V Source) [place] [facility] CenterNjfccwfMIDLHASKG4207-73-89 16:44:00 Test Item Value Reference Range Interpretation Comments POC V Temp (test code = POC V Temp) 37.0 [facility] CenterYwqdvxdYHRYXKDXF4640-35-38 16:44:00 Test Item Value Reference Range Interpretation Comments POC V Ion Ca (test code = POC V Ion Ca) 1.20 1.05-1.25 [facility] CenterKywznpmBZIOGZRKN9405-26-28 16:44:00 Test Item Value Reference Range Interpretation Comments POC V K (test code = POC V K) 4.0 3.5-5.1 [facility] CenterQaliqqbDZAGSRTFH9433-71-05 16:44:00 Test Item Value Reference Range Interpretation Comments POC V Na (test code = POC V Na) 130 135-145 [facility] CenterKeekinzSHVHPBGIF1859-42-28 16:44:00 Test Item Value Reference Range Interpretation Comments POC V LA (test code = POC V LA) 1.1 0.5-2.2 [facility] CenterOzgqmpdDUMLDQFQE4671-98-23 16:44:00 Test Item Value Reference Range Interpretation Comments POC V pH (test code = POC V pH) 7.41 1 7.28-7.42 [facility] CenterTkvirxrYCIBTMEYW7534-34-46 16:44:00 Test Item Value Reference Range Interpretation Comments POC V PCO2 (test code = POC V PCO2) 40 38-52 [facility] CenterXetrbxwYZJOGKQKZ2395-03-06 16:44:00 Test Item Value Reference Range Interpretation Comments POC V PO2 (test code = POC V PO2) 41 20-49 [facility] CenterYbkfgywVHPLSDQVC7640-11-70 16:44:00 Test Item Value Reference Range Interpretation Comments POC V HCO3 (test code = POC V HCO3) 25 22-26 [facility] CenterCkamequPLVHWPKDD6995-17-10 16:44:00 Test Item Value Reference Range Interpretation Comments POC V BE (test code = POC V BE) 1 -2-2 [facility] CenterTsgegidYVHTSCOQT7285-63-15 16:44:00 Test Item Value Reference Range Interpretation Comments POC V O2 Sat (calc) (test code = POC V 76.8 40.0-70.0 O2 Sat (calc)) [facility] CenterIfsyubwJDINYFFAW1792-03-85 16:44:00 Test Item Value Reference Range Interpretation Comments POC V Hgb Tot (test code = POC V Hgb 9.6 12.0-16.0 Tot) [facility] CenterVdsklthKABAZYIDO0073-20-49 16:44:00 Test Item Value Reference Range Interpretation Comments POC V Glu (test code = POC V Glu) 185 70-99 [place] 223672-10-24 16:44:00 Test Item Value Reference Range Interpretation Comments POC V Hct (calc) (test code = POC V Hct 29.0 36.0-48.0 (calc)) [facility] CenterFtebrtpDOYXUSXCD6134-60-57 16:44:00 Test Item Value Reference Range Interpretation Comments POC V Cl (test code = POC V Cl) 100 95-109 [facility] CenterKnvkrdgDPXHRGREM3871-20-24 16:44:00 Test Item Value Reference Range Interpretation Comments POC V Ca Ion at pH 7.4 (test code = POC 1.20 1.05-1.25 V Ca Ion at pH 7.4) [facility] CenterPzpsqmcEBUTJPMXZ8875-32-17 16:44:00 Test Item Value Reference Range Interpretation Comments POC V Source (test code = POC V Source) [place] [facility] CenterEjtnojhFPSJYUCJA0266-65-75 16:44:00 Test Item Value Reference Range Interpretation Comments POC V Temp (test code = POC V Temp) 37.0 [place] 223672-10-24 16:44:00 Test Item Value Reference Range Interpretation Comments POC V Ion Ca (test code = POC V Ion Ca) 1.20 1.05-1.25 [facility] CenterPirnylwKGHDHIOGV7425-83-76 16:44:00 Test Item Value Reference Range Interpretation Comments POC V K (test code = POC V K) 4.0 3.5-5.1 [place] [address]-10-24 16:44:00 Test Item Value Reference Range Interpretation Comments POC V Na (test code = POC V Na) 130 135-145 [facility] CenterQjzsxuuKYXDUCNYA4466-04-65 16:44:00 Test Item Value Reference Range Interpretation Comments POC V LA (test code = POC V LA) 1.1 0.5-2.2 [place] [address]-10-24 16:44:00 Test Item Value Reference Range Interpretation Comments POC V pH (test code = POC V pH) 7.41 1 7.28-7.42 [place] 223672-10-24 16:44:00 Test Item Value Reference Range Interpretation Comments POC V PCO2 (test code = POC V PCO2) 40 38-52 [facility] CenterPrhmvgjEQGKAYVBX3114-34-94 16:44:00 Test Item Value Reference Range Interpretation Comments POC V PO2 (test code = POC V PO2) 41 20-49 [facility] CenterXdkhzekSVKZPTGTY0811-56-96 16:44:00 Test Item Value Reference Range Interpretation Comments POC V HCO3 (test code = POC V HCO3) 25 22-26 [facility] CenterVydpvwbUUBATCTYA1013-55-58 16:44:00 Test Item Value Reference Range Interpretation Comments POC V BE (test code = POC V BE) 1 -2-2 [facility] CenterSfnadipUVSJDPKBC8077-33-72 16:44:00 Test Item Value Reference Range Interpretation Comments POC V O2 Sat (calc) (test code = POC V 76.8 40.0-70.0 O2 Sat (calc)) [facility] CenterWfcbchkOANUFSVQO3406-30-90 16:44:00 Test Item Value Reference Range Interpretation Comments POC V Hgb Tot (test code = POC V Hgb 9.6 12.0-16.0 Tot) [facility] CenterTepmchqEJAAIJZMQ6216-06-71 16:44:00 Test Item Value Reference Range Interpretation Comments POC V Glu (test code = POC V Glu) 185 70-99 [facility] CenterPutglmxUXXTQREVQ9324-60-11 16:44:00 Test Item Value Reference Range Interpretation Comments POC V Hct (calc) (test code = POC V Hct 29.0 36.0-48.0 (calc)) [facility] CenterHiwvgbeFMAUKADEM2900-37-47 16:44:00 Test Item Value Reference Range Interpretation Comments POC V Cl (test code = POC V Cl) 100 95-109 [facility] CenterUlaoomaPUCILDKHC5859-22-55 16:44:00 Test Item Value Reference Range Interpretation Comments POC V Ca Ion at pH 7.4 (test code = POC 1.20 1.05-1.25 V Ca Ion at pH 7.4) [facility] CenterPjulggqDNSEFEWTR8198-32-63 16:44:00 Test Item Value Reference Range Interpretation Comments POC V Source (test code = POC V Source) [place] [facility] CenterJrnraxsKKIDDVRSQ2802-33-65 16:44:00 Test Item Value Reference Range Interpretation Comments POC V Temp (test code = POC V Temp) 37.0 [facility] CenterGahzgytSZXNWYTUS5931-59-70 16:44:00 Test Item Value Reference Range Interpretation Comments POC V Ion Ca (test code = POC V Ion Ca) 1.20 1.05-1.25 [facility] CenterGcnvgrbFAXFPLYTF0265-07-23 16:44:00 Test Item Value Reference Range Interpretation Comments POC V K (test code = POC V K) 4.0 3.5-5.1 [facility] CenterMnptvgtJPBEEGWFC2835-38-20 16:44:00 Test Item Value Reference Range Interpretation Comments POC V Na (test code = POC V Na) 130 135-145 [facility] CenterZualuueCXDKAZWKQ3234-98-74 16:44:00 Test Item Value Reference Range Interpretation Comments POC V LA (test code = POC V LA) 1.1 0.5-2.2 [facility] CenterFzjepwfORSKHWWCM2414-57-55 16:44:00 Test Item Value Reference Range Interpretation Comments POC V pH (test code = POC V pH) 7.41 1 7.28-7.42 [facility] CenterNxrbusjFLGZLQBQQ9180-55-57 16:44:00 Test Item Value Reference Range Interpretation Comments POC V PCO2 (test code = POC V PCO2) 40 38-52 [facility] CenterAjlhnykHVPCOEXSR6941-98-21 16:44:00 Test Item Value Reference Range Interpretation Comments POC V PO2 (test code = POC V PO2) 41 20-49 [facility] CenterJmzmtenUOUGHOVRF2496-70-71 16:44:00 Test Item Value Reference Range Interpretation Comments POC V HCO3 (test code = POC V HCO3) 25 22-26 [facility] CenterUvbfsuaMHEIMBCEE3682-46-02 16:44:00 Test Item Value Reference Range Interpretation Comments POC V BE (test code = POC V BE) 1 -2-2 [facility] CenterLgsvqrbYTLUDOEJN3927-89-78 16:44:00 Test Item Value Reference Range Interpretation Comments POC V O2 Sat (calc) (test code = POC V 76.8 40.0-70.0 O2 Sat (calc)) [facility] CenterQqqvgyhAZSINZNKQ8227-12-91 16:44:00 Test Item Value Reference Range Interpretation Comments POC V Hgb Tot (test code = POC V Hgb 9.6 12.0-16.0 Tot) [facility] CenterIbdwxgpUMRRZJZMC5550-58-98 16:44:00 Test Item Value Reference Range Interpretation Comments POC V Glu (test code = POC V Glu) 185 70-99 [facility] CenterBuriwcaZZHDBSIOT9767-97-05 16:44:00 Test Item Value Reference Range Interpretation Comments POC V Hct (calc) (test code = POC V Hct 29.0 36.0-48.0 (calc)) [facility] CenterJljwxbrXWOLBUYKX8159-20-42 16:44:00 Test Item Value Reference Range Interpretation Comments POC V Cl (test code = POC V Cl) 100 95-109 [facility] CenterUdmefzjDPYFOPRRG5233-64-16 16:44:00 Test Item Value Reference Range Interpretation Comments POC V Ca Ion at pH 7.4 (test code = POC 1.20 1.05-1.25 V Ca Ion at pH 7.4) [facility] CenterJfzthbgYKPAIAJFR6262-36-26 16:44:00 Test Item Value Reference Range Interpretation Comments POC V Source (test code = POC V Source) [place] [facility] CenterKazzzjvJDRDTZMSD1302-45-98 16:44:00 Test Item Value Reference Range Interpretation Comments POC V Temp (test code = POC V Temp) 37.0 [facility] CenterKbdntflZBOBHRTUT8586-03-29 16:44:00 Test Item Value Reference Range Interpretation Comments POC V Ion Ca (test code = POC V Ion Ca) 1.20 1.05-1.25 [facility] CenterGugnaavXINAYSJOC5950-07-72 16:44:00 Test Item Value Reference Range Interpretation Comments POC V K (test code = POC V K) 4.0 3.5-5.1 [facility] CenterOrfvpolVWGQRTOTN4899-48-21 16:44:00 Test Item Value Reference Range Interpretation Comments POC V Na (test code = POC V Na) 130 135-145 [facility] CenterRrfhfwcZFKEKXPZW7294-84-79 16:44:00 Test Item Value Reference Range Interpretation Comments POC V LA (test code = POC V LA) 1.1 0.5-2.2 [facility] CenterPuhzfitSDXAXAOMX1825-35-00 16:44:00 Test Item Value Reference Range Interpretation Comments POC V pH (test code = POC V pH) 7.41 1 7.28-7.42 [facility] CenterNhwtlkyTOEAJUOZQ1783-51-28 16:44:00 Test Item Value Reference Range Interpretation Comments POC V PCO2 (test code = POC V PCO2) 40 38-52 [facility] CenterIqsnofzBGEGNJWLN0983-29-09 16:44:00 Test Item Value Reference Range Interpretation Comments POC V PO2 (test code = POC V PO2) 41 20-49 [facility] CenterRahelbzNZAMAYCPN5261-29-18 16:44:00 Test Item Value Reference Range Interpretation Comments POC V HCO3 (test code = POC V HCO3) 25 22-26 [place] 223672-10-24 16:44:00 Test Item Value Reference Range Interpretation Comments POC V BE (test code = POC V BE) 1 -2-2 [facility] CenterTrpsvduXHCRVYAUU7655-22-54 16:44:00 Test Item Value Reference Range Interpretation Comments POC V O2 Sat (calc) (test code = POC V 76.8 40.0-70.0 O2 Sat (calc)) [facility] CenterBnaqennDRHPHSMQT0128-53-80 16:44:00 Test Item Value Reference Range Interpretation Comments POC V Hgb Tot (test code = POC V Hgb 9.6 12.0-16.0 Tot) [facility] CenterRpwtiliAZUWTVOFS9091-73-96 16:44:00 Test Item Value Reference Range Interpretation Comments POC V Glu (test code = POC V Glu) 185 70-99 [facility] CenterBfcwptePLEVNHEAT9808-26-29 16:44:00 Test Item Value Reference Range Interpretation Comments POC V Hct (calc) (test code = POC V Hct 29.0 36.0-48.0 (calc)) [facility] CenterCixfxhnUKGAAFGXM0997-29-59 16:44:00 Test Item Value Reference Range Interpretation Comments POC V Cl (test code = POC V Cl) 100 95-109 [facility] CenterQcrpwlqIQQRSUHSM9685-33-65 16:44:00 Test Item Value Reference Range Interpretation Comments POC V Ca Ion at pH 7.4 (test code = POC 1.20 1.05-1.25 V Ca Ion at pH 7.4) [facility] CenterDpukzkbKYCDLVYGY6549-11-06 16:44:00 Test Item Value Reference Range Interpretation Comments POC V Source (test code = POC V Source) [place] [facility] CenterJwgxwscHXCIYVIVD9687-39-68 16:44:00 Test Item Value Reference Range Interpretation Comments POC V Temp (test code = POC V Temp) 37.0 [facility] CenterEaccpfrKFMNFVROF3041-75-02 16:44:00 Test Item Value Reference Range Interpretation Comments POC V Ion Ca (test code = POC V Ion Ca) 1.20 1.05-1.25 [facility] CenterKgrbwprDAAILDHPU4175-03-37 16:44:00 Test Item Value Reference Range Interpretation Comments POC V K (test code = POC V K) 4.0 3.5-5.1 [facility] CenterPnthoohYLQNUSJLW7944-21-68 16:44:00 Test Item Value Reference Range Interpretation Comments POC V Na (test code = POC V Na) 130 135-145 [facility] CenterSesebuhZBFMLZQQD6269-31-54 16:44:00 Test Item Value Reference Range Interpretation Comments POC V LA (test code = POC V LA) 1.1 0.5-2.2 [facility] CenterDaxmyzcOWZXLCPQR3851-05-31 16:44:00 Test Item Value Reference Range Interpretation Comments POC V pH (test code = POC V pH) 7.41 1 7.28-7.42 [facility] CenterPwtemwfWWVXNPWJH1169-93-99 16:44:00 Test Item Value Reference Range Interpretation Comments POC V PCO2 (test code = POC V PCO2) 40 38-52 [facility] CenterGdeifzuVLXBMQCTO1962-67-72 16:44:00 Test Item Value Reference Range Interpretation Comments POC V PO2 (test code = POC V PO2) 41 20-49 [facility] CenterVxthepnGIMMBTLPD1397-91-80 16:44:00 Test Item Value Reference Range Interpretation Comments POC V HCO3 (test code = POC V HCO3) 25 22-26 [facility] CenterMtbxxlzDDWKNCMAB9158-29-23 16:44:00 Test Item Value Reference Range Interpretation Comments POC V BE (test code = POC V BE) 1 -2-2 [facility] CenterJpangmnNDJTLRXOG1215-26-88 16:44:00 Test Item Value Reference Range Interpretation Comments POC V O2 Sat (calc) (test code = POC V 76.8 40.0-70.0 O2 Sat (calc)) [facility] CenterAkknfgtREIUUQAXG1150-90-42 16:44:00 Test Item Value Reference Range Interpretation Comments POC V Hgb Tot (test code = POC V Hgb 9.6 12.0-16.0 Tot) [facility] CenterRglwdbwCCBUBEZJF9894-49-85 16:44:00 Test Item Value Reference Range Interpretation Comments POC V Glu (test code = POC V Glu) 185 70-99 [facility] CenterHzrbgljXPKFMAYQQ8630-53-81 16:44:00 Test Item Value Reference Range Interpretation Comments POC V Hct (calc) (test code = POC V Hct 29.0 36.0-48.0 (calc)) [facility] CenterVzkrzpoJVZPIXOGZ3069-06-45 16:44:00 Test Item Value Reference Range Interpretation Comments POC V Cl (test code = POC V Cl) 100 95-109 [facility] CenterAfwoyamYMMTSTHMS4283-66-24 16:44:00 Test Item Value Reference Range Interpretation Comments POC V Ca Ion at pH 7.4 (test code = POC 1.20 1.05-1.25 V Ca Ion at pH 7.4) [facility] CenterWbekvahODEVMMCQR5513-98-62 16:44:00 Test Item Value Reference Range Interpretation Comments POC V Source (test code = POC V Source) [facility] CenterDmmbohoZHFNXSMWU6060-84-18 16:44:00 Test Item Value Reference Range Interpretation Comments POC V Temp (test code = POC V Temp) 37.0 [facility] CenterOhqqqmaVGURFKDOE1530-13-32 16:44:00 Test Item Value Reference Range Interpretation Comments POC V Ion Ca (test code = POC V Ion Ca) 1.20 1.05-1.25 [facility] CenterOwjnygzIAWFQEXCS7774-83-58 16:44:00 Test Item Value Reference Range Interpretation Comments POC V K (test code = POC V K) 4.0 3.5-5.1 [facility] CenterZgrntmcQHMTZHWGW2432-51-75 16:44:00 Test Item Value Reference Range Interpretation Comments POC V Na (test code = POC V Na) 130 135-145 [facility] CenterLdenrgwWXTUAYCTL7847-49-70 16:44:00 Test Item Value Reference Range Interpretation Comments POC V LA (test code = POC V LA) 1.1 0.5-2.2 [facility] CenterPtmdieqGIRLUHAUU8731-21-59 16:44:00 Test Item Value Reference Range Interpretation Comments POC V pH (test code = POC V pH) 7.41 1 7.28-7.42 [facility] CenterYwiphnjUBORMAXMW5277-51-37 16:44:00 Test Item Value Reference Range Interpretation Comments POC V PCO2 (test code = POC V PCO2) 40 38-52 [facility] CenterGxonymfCULGFJURF9826-14-81 16:44:00 Test Item Value Reference Range Interpretation Comments POC V PO2 (test code = POC V PO2) 41 20-49 [facility] CenterSjwtwgzTPATJEXYZ5204-21-75 16:44:00 Test Item Value Reference Range Interpretation Comments POC V HCO3 (test code = POC V HCO3) 25 22-26 [facility] CenterXpwyqwpQTJWQYFCB1917-24-58 16:44:00 Test Item Value Reference Range Interpretation Comments POC V BE (test code = POC V BE) 1 -2-2 [facility] CenterIpjywumMZTCRDEHQ4929-77-94 16:44:00 Test Item Value Reference Range Interpretation Comments POC V O2 Sat (calc) (test code = POC V 76.8 40.0-70.0 O2 Sat (calc)) [facility] CenterRsnkfljVGDXMCLFD4170-44-04 16:44:00 Test Item Value Reference Range Interpretation Comments POC V Hgb Tot (test code = POC V Hgb 9.6 12.0-16.0 Tot) [facility] CenterXibljwgWXQVQQHZX6279-11-19 16:44:00 Test Item Value Reference Range Interpretation Comments POC V Glu (test code = POC V Glu) 185 70-99 [facility] CenterBhzyokuRWQVDMPGP0930-67-10 16:44:00 Test Item Value Reference Range Interpretation Comments POC V Hct (calc) (test code = POC V Hct 29.0 36.0-48.0 (calc)) [facility] CenterHghyghuYNAGRUDGJ9221-85-33 16:44:00 Test Item Value Reference Range Interpretation Comments POC V Cl (test code = POC V Cl) 100 95-109 [facility] CenterLnamytpQRHESBUTR5830-27-92 16:44:00 Test Item Value Reference Range Interpretation Comments POC V Ca Ion at pH 7.4 (test code = POC 1.20 1.05-1.25 V Ca Ion at pH 7.4) [facility] CenterRjhmcnvWYMBAMVTL0696-67-28 16:44:00 Test Item Value Reference Range Interpretation Comments POC V Source (test code = POC V Source) [facility] CenterPmuwkgkCTHKMNGEZ2120-65-94 16:44:00 Test Item Value Reference Range Interpretation Comments POC V Temp (test code = POC V Temp) 37.0 [facility] CenterWqiybvjFDCJDOLGI5869-51-95 16:44:00 Test Item Value Reference Range Interpretation Comments POC V Ion Ca (test code = POC V Ion Ca) 1.20 1.05-1.25 [facility] CenterKpsqrlzTWYVYGWQF3384-67-14 16:44:00 Test Item Value Reference Range Interpretation Comments POC V K (test code = POC V K) 4.0 3.5-5.1 [facility] CenterOeobvlyKGFPHZZHF9193-80-12 16:44:00 Test Item Value Reference Range Interpretation Comments POC V Na (test code = POC V Na) 130 135-145 [facility] CenterOvwbxzuYKGYUWGLR2824-82-75 16:44:00 Test Item Value Reference Range Interpretation Comments POC V LA (test code = POC V LA) 1.1 0.5-2.2 [facility] CenterHmzgyxbAOXSRYQGJ1762-59-88 16:44:00 Test Item Value Reference Range Interpretation Comments POC V pH (test code = POC V pH) 7.41 1 7.28-7.42 [place] 223672-10-24 16:44:00 Test Item Value Reference Range Interpretation Comments POC V PCO2 (test code = POC V PCO2) 40 38-52 [facility] CenterCsubcftJKTBLNFEO6978-10-61 16:44:00 Test Item Value Reference Range Interpretation Comments POC V PO2 (test code = POC V PO2) 41 20-49 [facility] CenterHpblmseZVZJZIPGC4016-90-97 16:44:00 Test Item Value Reference Range Interpretation Comments POC V HCO3 (test code = POC V HCO3) 25 22-26 [facility] CenterYyckicsGWSRMIEWY4234-18-18 16:44:00 Test Item Value Reference Range Interpretation Comments POC V BE (test code = POC V BE) 1 -2-2 [facility] CenterUttclixMMDYTNTOR1377-39-29 16:44:00 Test Item Value Reference Range Interpretation Comments POC V O2 Sat (calc) (test code = POC V 76.8 40.0-70.0 O2 Sat (calc)) [facility] CenterRgyeoncKUGUMLLOU6619-00-99 16:44:00 Test Item Value Reference Range Interpretation Comments POC V Hgb Tot (test code = POC V Hgb 9.6 12.0-16.0 Tot) [facility] CenterAxiooexJAEOICKHP3523-34-58 16:44:00 Test Item Value Reference Range Interpretation Comments POC V Glu (test code = POC V Glu) 185 70-99 [facility] CenterDjyzhdsEZOEAKYQV5930-97-92 16:44:00 Test Item Value Reference Range Interpretation Comments POC V Hct (calc) (test code = POC V Hct 29.0 36.0-48.0 (calc)) [facility] CenterMvjwtglXWVUREKYE8170-99-97 16:44:00 Test Item Value Reference Range Interpretation Comments POC V Cl (test code = POC V Cl) 100 95-109 [facility] CenterHiwsqsnSQSZEVQIN8219-51-76 16:44:00 Test Item Value Reference Range Interpretation Comments POC V Ca Ion at pH 7.4 (test code = POC 1.20 1.05-1.25 V Ca Ion at pH 7.4) [place] [address]-10-24 16:44:00 Test Item Value Reference Range Interpretation Comments POC V Source (test code = POC V Source) [facility] CenterAhchodlVKCYZOZLC9969-76-90 16:44:00 Test Item Value Reference Range Interpretation Comments POC V Temp (test code = POC V Temp) 37.0 [facility] CenterLjlednnSFVHAVGLY9705-87-25 16:44:00 Test Item Value Reference Range Interpretation Comments POC V Ion Ca (test code = POC V Ion Ca) 1.20 1.05-1.25 [facility] CenterVipszutTDWCHDFCV0339-10-70 16:44:00 Test Item Value Reference Range Interpretation Comments POC V K (test code = POC V K) 4.0 3.5-5.1 [facility] CenterYclyiuzYPHCBGJGI6340-57-12 16:44:00 Test Item Value Reference Range Interpretation Comments POC V Na (test code = POC V Na) 130 135-145 [facility] CenterMhsydhfGICBQYZBO7667-64-05 16:44:00 Test Item Value Reference Range Interpretation Comments POC V LA (test code = POC V LA) 1.1 0.5-2.2 [facility] CenterAclcmygCDPCZJTXI0441-73-86 16:44:00 Test Item Value Reference Range Interpretation Comments POC V pH (test code = POC V pH) 7.41 1 7.28-7.42 [facility] CenterPcjpcjyQPLSGAGMN2323-22-11 16:44:00 Test Item Value Reference Range Interpretation Comments POC V PCO2 (test code = POC V PCO2) 40 38-52 [facility] CenterYfjqufcHKNFIAAMG6599-87-33 16:44:00 Test Item Value Reference Range Interpretation Comments POC V PO2 (test code = POC V PO2) 41 20-49 [facility] CenterKrllcksYQMJYJCUU9968-00-54 16:44:00 Test Item Value Reference Range Interpretation Comments POC V HCO3 (test code = POC V HCO3) 25 22-26 [facility] CenterTknnxtkONKMBUPVK1063-26-69 16:44:00 Test Item Value Reference Range Interpretation Comments POC V BE (test code = POC V BE) 1 -2-2 [facility] CenterHutfsghSOUVNCFZS4116-00-33 16:44:00 Test Item Value Reference Range Interpretation Comments POC V O2 Sat (calc) (test code = POC V 76.8 40.0-70.0 O2 Sat (calc)) [facility] CenterWeofxjdKWPCQITMF0490-97-38 16:44:00 Test Item Value Reference Range Interpretation Comments POC V Hgb Tot (test code = POC V Hgb 9.6 12.0-16.0 Tot) [facility] CenterMleaabeANXRCVITI7090-37-49 16:44:00 Test Item Value Reference Range Interpretation Comments POC V Glu (test code = POC V Glu) 185 70-99 [facility] CenterVxbtbixUPUMXZCCA9325-09-57 16:44:00 Test Item Value Reference Range Interpretation Comments POC V Hct (calc) (test code = POC V Hct 29.0 36.0-48.0 (calc)) [facility] CenterOkiswiqCNCYMFAXL8188-01-60 16:44:00 Test Item Value Reference Range Interpretation Comments POC V Cl (test code = POC V Cl) 100 95-109 [facility] CenterKeinrhfTVTJRCCQQ7982-59-52 16:44:00 Test Item Value Reference Range Interpretation Comments POC V Ca Ion at pH 7.4 (test code = POC 1.20 1.05-1.25 V Ca Ion at pH 7.4) [facility] CenterKqdfjroWIXEZVNKP5016-97-16 16:44:00 Test Item Value Reference Range Interpretation Comments POC V Source (test code = POC V Source) [facility] [facility] CenterXglnqxyWWQECXJHE6558-29-05 16:44:00 Test Item Value Reference Range Interpretation Comments POC V Temp (test code = POC V Temp) 37.0 [facility] CenterYslfezaFLBAEHELR9835-76-50 16:44:00 Test Item Value Reference Range Interpretation Comments POC V Ion Ca (test code = POC V Ion Ca) 1.20 1.05-1.25 [facility] CenterJqqlpcxAUWADXCJA7113-76-48 16:44:00 Test Item Value Reference Range Interpretation Comments POC V K (test code = POC V K) 4.0 3.5-5.1 [facility] CenterZunrrreLPAVAIISU5398-47-23 16:44:00 Test Item Value Reference Range Interpretation Comments POC V Na (test code = POC V Na) 130 135-145 [facility] CenterVckyhjkZBHTDGWCA5681-35-33 16:44:00 Test Item Value Reference Range Interpretation Comments POC V LA (test code = POC V LA) 1.1 0.5-2.2 [facility] CenterCdowhoeYGOJUPHDA8504-63-87 16:44:00 Test Item Value Reference Range Interpretation Comments POC V pH (test code = POC V pH) 7.41 1 7.28-7.42 [facility] CenterNrjzbeeXXDWNOPMY1252-70-67 16:44:00 Test Item Value Reference Range Interpretation Comments POC V PCO2 (test code = POC V PCO2) 40 38-52 [facility] CenterZwfsehpHRZZPRSDN5292-58-80 16:44:00 Test Item Value Reference Range Interpretation Comments POC V PO2 (test code = POC V PO2) 41 20-49 [facility] CenterLezgfucRJVZQYGGY4315-89-74 16:44:00 Test Item Value Reference Range Interpretation Comments POC V HCO3 (test code = POC V HCO3) 25 22-26 [facility] CenterBmpaqoyJLPDYXUWW3065-64-91 16:44:00 Test Item Value Reference Range Interpretation Comments POC V BE (test code = POC V BE) 1 -2-2 [facility] CenterZrgbtxtUABCEXHAH4112-33-44 16:44:00 Test Item Value Reference Range Interpretation Comments POC V O2 Sat (calc) (test code = POC V 76.8 40.0-70.0 O2 Sat (calc)) [facility] CenterCvxcmrvEQBUDKSAW6423-39-32 16:44:00 Test Item Value Reference Range Interpretation Comments POC V Hgb Tot (test code = POC V Hgb 9.6 12.0-16.0 Tot) [facility] CenterMeqlwydDDREPKTMQ4887-88-72 16:44:00 Test Item Value Reference Range Interpretation Comments POC V Glu (test code = POC V Glu) 185 70-99 [facility] CenterZurlwufGBNBDPOLX7826-09-06 16:44:00 Test Item Value Reference Range Interpretation Comments POC V Hct (calc) (test code = POC V Hct 29.0 36.0-48.0 (calc)) [facility] CenterOgaawtuINGOKORIQ1180-36-01 16:44:00 Test Item Value Reference Range Interpretation Comments POC V Cl (test code = POC V Cl) 100 95-109 [facility] CenterRzrtszfMUPVBFPML5525-70-58 16:44:00 Test Item Value Reference Range Interpretation Comments POC V Ca Ion at pH 7.4 (test code = POC 1.20 1.05-1.25 V Ca Ion at pH 7.4) [facility] CenterWjfebqvOHMJESUIJ5225-78-36 16:44:00 Test Item Value Reference Range Interpretation Comments POC V Source (test code = POC V Source) [place] [facility] CenterPllcrmtKJJZTWTFK2546-93-12 16:44:00 Test Item Value Reference Range Interpretation Comments POC V Temp (test code = POC V Temp) 37.0 [facility] CenterXmgfhwfGGTRDJWKC3400-41-49 16:44:00 Test Item Value Reference Range Interpretation Comments POC V Ion Ca (test code = POC V Ion Ca) 1.20 1.05-1.25 [facility] CenterZcxbdzcJTZRKVQIE5824-97-75 16:44:00 Test Item Value Reference Range Interpretation Comments POC V K (test code = POC V K) 4.0 3.5-5.1 [facility] CenterPfsycqsJTCICYANU4044-60-10 16:44:00 Test Item Value Reference Range Interpretation Comments POC V Na (test code = POC V Na) 130 135-145 [facility] CenterTpmltmlDGHJQCGRS1256-61-84 16:44:00 Test Item Value Reference Range Interpretation Comments POC V LA (test code = POC V LA) 1.1 0.5-2.2 [facility] CenterRrdwvtrKNONHCKKM1281-31-52 16:44:00 Test Item Value Reference Range Interpretation Comments POC V pH (test code = POC V pH) 7.41 1 7.28-7.42 [facility] CenterWqcljvbHWEDKECHH3977-31-85 16:44:00 Test Item Value Reference Range Interpretation Comments POC V PCO2 (test code = POC V PCO2) 40 38-52 [facility] CenterMrjicnkXEZVKXHMJ0489-91-99 16:44:00 Test Item Value Reference Range Interpretation Comments POC V PO2 (test code = POC V PO2) 41 20-49 [facility] CenterUqvwionSPMLRDAXX8206-82-64 16:44:00 Test Item Value Reference Range Interpretation Comments POC V HCO3 (test code = POC V HCO3) 25 22-26 [facility] CenterDmeagtzAWCOJCYCD8152-78-49 16:44:00 Test Item Value Reference Range Interpretation Comments POC V BE (test code = POC V BE) 1 -2-2 [facility] CenterSwwfzaxOHUWTYCZP1763-31-42 16:44:00 Test Item Value Reference Range Interpretation Comments POC V O2 Sat (calc) (test code = POC V 76.8 40.0-70.0 O2 Sat (calc)) [facility] CenterFaxfcloFVAMESXNT8939-47-55 16:44:00 Test Item Value Reference Range Interpretation Comments POC V Hgb Tot (test code = POC V Hgb 9.6 12.0-16.0 Tot) [facility] CenterNehcrglMMSBVDNER6292-39-12 16:44:00 Test Item Value Reference Range Interpretation Comments POC V Glu (test code = POC V Glu) 185 70-99 [facility] CenterOnegozbIMHLDHEPE4815-09-51 16:44:00 Test Item Value Reference Range Interpretation Comments POC V Hct (calc) (test code = POC V Hct 29.0 36.0-48.0 (calc)) [facility] CenterJjzbtbdLIUOXLRVE6228-74-07 16:44:00 Test Item Value Reference Range Interpretation Comments POC V Cl (test code = POC V Cl) 100 95-109 [facility] CenterMmkmmlnOIIUHOMWS9887-51-54 16:44:00 Test Item Value Reference Range Interpretation Comments POC V Ca Ion at pH 7.4 (test code = POC 1.20 1.05-1.25 V Ca Ion at pH 7.4) [facility] CenterSaxovclKFXAKTYHL7571-70-40 16:44:00 Test Item Value Reference Range Interpretation Comments POC V Source (test code = POC V Source) [facility] [facility] CenterEnqoeigIJJXFNRQZ6370-40-69 16:44:00 Test Item Value Reference Range Interpretation Comments POC V Temp (test code = POC V Temp) 37.0 [facility] CenterSitkdbjPKKBSNNPZ6546-42-86 16:44:00 Test Item Value Reference Range Interpretation Comments POC V Ion Ca (test code = POC V Ion Ca) 1.20 1.05-1.25 [facility] CenterDijgbrzSQMYIWMYQ6783-69-71 16:44:00 Test Item Value Reference Range Interpretation Comments POC V K (test code = POC V K) 4.0 3.5-5.1 [facility] CenterVajlhqyTFDITGSFO9222-99-47 16:44:00 Test Item Value Reference Range Interpretation Comments POC V Na (test code = POC V Na) 130 135-145 [facility] CenterZwyfjguDRQCTSPUO0004-82-39 16:44:00 Test Item Value Reference Range Interpretation Comments POC V LA (test code = POC V LA) 1.1 0.5-2.2 [place] 223672-10-24 16:44:00 Test Item Value Reference Range Interpretation Comments POC V pH (test code = POC V pH) 7.41 1 7.28-7.42 [place] 223672-10-24 16:44:00 Test Item Value Reference Range Interpretation Comments POC V PCO2 (test code = POC V PCO2) 40 38-52 [facility] CenterKqesrwbMPRFRFGLV8969-21-09 16:44:00 Test Item Value Reference Range Interpretation Comments POC V PO2 (test code = POC V PO2) 41 20-49 [facility] CenterAlblcdmWJAXWQIMV6891-87-47 16:44:00 Test Item Value Reference Range Interpretation Comments POC V HCO3 (test code = POC V HCO3) 25 22-26 [facility] CenterAxqqtnmNLJSODONJ8687-84-35 16:44:00 Test Item Value Reference Range Interpretation Comments POC V BE (test code = POC V BE) 1 -2-2 [facility] CenterYycaogsUEWVWUMAF3719-37-93 16:44:00 Test Item Value Reference Range Interpretation Comments POC V O2 Sat (calc) (test code = POC V 76.8 40.0-70.0 O2 Sat (calc)) [facility] CenterTdhizjgUMQPSQSZU5801-32-83 16:44:00 Test Item Value Reference Range Interpretation Comments POC V Hgb Tot (test code = POC V Hgb 9.6 12.0-16.0 Tot) [facility] CenterWekprreBKMRLPIMZ5672-62-38 16:44:00 Test Item Value Reference Range Interpretation Comments POC V Glu (test code = POC V Glu) 185 70-99 [facility] CenterOgzgxbsPOVFUONTZ9829-68-81 16:44:00 Test Item Value Reference Range Interpretation Comments POC V Hct (calc) (test code = POC V Hct 29.0 36.0-48.0 (calc)) [facility] CenterQzapqjtGMVNWFGEB8923-02-16 16:44:00 Test Item Value Reference Range Interpretation Comments POC V Cl (test code = POC V Cl) 100 95-109 [facility] CenterUubdmdiFZVEZOEIQ1101-62-41 16:44:00 Test Item Value Reference Range Interpretation Comments POC V Ca Ion at pH 7.4 (test code = POC 1.20 1.05-1.25 V Ca Ion at pH 7.4) [facility] CenterPrmqoafGBVZZCILC4819-82-52 16:44:00 Test Item Value Reference Range Interpretation Comments POC V Source (test code = POC V Source) [place] [facility] CenterTrrqxzpKZZVNJNBI8092-50-74 16:44:00 Test Item Value Reference Range Interpretation Comments POC V Temp (test code = POC V Temp) 37.0 [facility] CenterJsaqczxWTQJBJWBN3686-73-33 16:44:00 Test Item Value Reference Range Interpretation Comments POC V Ion Ca (test code = POC V Ion Ca) 1.20 1.05-1.25 [facility] CenterLiiruvhSYNKHLNFF1922-00-90 16:44:00 Test Item Value Reference Range Interpretation Comments POC V K (test code = POC V K) 4.0 3.5-5.1 [facility] CenterEskjvcdPEFMXLHCO2144-64-34 16:44:00 Test Item Value Reference Range Interpretation Comments POC V Na (test code = POC V Na) 130 135-145 [facility] CenterBcifyafTIDLMLLTG8343-13-65 16:44:00 Test Item Value Reference Range Interpretation Comments POC V LA (test code = POC V LA) 1.1 0.5-2.2 [facility] CenterDucvannXCWOFPPHO8633-88-73 16:44:00 Test Item Value Reference Range Interpretation Comments POC V pH (test code = POC V pH) 7.41 1 7.28-7.42 [facility] CenterJqvsssiAIOKEHOMG3803-12-01 16:44:00 Test Item Value Reference Range Interpretation Comments POC V PCO2 (test code = POC V PCO2) 40 38-52 [facility] CenterNjjhkyrGYISUJLLZ1690-43-79 16:44:00 Test Item Value Reference Range Interpretation Comments POC V PO2 (test code = POC V PO2) 41 20-49 [facility] CenterYrypjshFTBKGZASQ5760-43-27 16:44:00 Test Item Value Reference Range Interpretation Comments POC V HCO3 (test code = POC V HCO3) 25 22-26 [facility] CenterKbegcufIXTASMGGS3066-33-28 16:44:00 Test Item Value Reference Range Interpretation Comments POC V BE (test code = POC V BE) 1 -2-2 [facility] CenterEmfsvlcTFZEXEUXL1240-59-39 16:44:00 Test Item Value Reference Range Interpretation Comments POC V O2 Sat (calc) (test code = POC V 76.8 40.0-70.0 O2 Sat (calc)) [facility] CenterMpbzbheIDCEFCUOH8041-54-56 16:44:00 Test Item Value Reference Range Interpretation Comments POC V Hgb Tot (test code = POC V Hgb 9.6 12.0-16.0 Tot) [facility] CenterXhbzcahSNLZOOLQY5641-26-44 16:44:00 Test Item Value Reference Range Interpretation Comments POC V Glu (test code = POC V Glu) 185 70-99 [facility] CenterKiwjdbrAUHZMORXR5243-67-96 16:44:00 Test Item Value Reference Range Interpretation Comments POC V Hct (calc) (test code = POC V Hct 29.0 36.0-48.0 (calc)) [facility] CenterThfjgcbNPXLWKUYQ2346-29-75 16:44:00 Test Item Value Reference Range Interpretation Comments POC V Cl (test code = POC V Cl) 100 95-109 [facility] CenterFifpnjjNINEYGCTZ0056-75-81 16:44:00 Test Item Value Reference Range Interpretation Comments POC V Ca Ion at pH 7.4 (test code = POC 1.20 1.05-1.25 V Ca Ion at pH 7.4) [facility] CenterNugldpxWVILTRPGN9411-35-46 16:44:00 Test Item Value Reference Range Interpretation Comments POC V Source (test code = POC V Source) [facility]2022-10-24 16:44:00 Test Item Value Reference Range Interpretation Comments POC V Temp (test code = POC V Temp) 37.0 [facility] CenterNflviqqBZTQXEPNJ7183-01-63 16:44:00 Test Item Value Reference Range Interpretation Comments POC V Ion Ca (test code = POC V Ion Ca) 1.20 1.05-1.25 [facility] CenterRnzdyvlWFLACIKHN9950-90-18 16:44:00 Test Item Value Reference Range Interpretation Comments POC V K (test code = POC V K) 4.0 3.5-5.1 [facility] CenterFsklditUDEZSIGLD2613-56-84 16:44:00 Test Item Value Reference Range Interpretation Comments POC V Na (test code = POC V Na) 130 135-145 [facility] CenterTcxpoarCLNOXPJUP8022-39-74 16:44:00 Test Item Value Reference Range Interpretation Comments POC V Source (test code = POC V Source) [facility]2022-10-24 16:44:00 Test Item Value Reference Range Interpretation Comments POC V Temp (test code = POC V Temp) 37.0 [facility] CenterEmmxkfaTGVAUXPCD7779-86-87 16:44:00 Test Item Value Reference Range Interpretation Comments POC V Ion Ca (test code = POC V Ion Ca) 1.20 1.05-1.25 [facility] CenterPomzvkuNWQTHXIXD9100-03-79 16:44:00 Test Item Value Reference Range Interpretation Comments POC V K (test code = POC V K) 4.0 3.5-5.1 [facility] CenterDhipjvnNAMVNYWMH5743-43-82 16:44:00 Test Item Value Reference Range Interpretation Comments POC V Na (test code = POC V Na) 130 135-145 [facility] CenterLrjyiddEKRWGZAIB4383-88-99 16:44:00 Test Item Value Reference Range Interpretation Comments POC V LA (test code = POC V LA) 1.1 0.5-2.2 [facility] CenterFuqwaveTXVDPXNXZ2346-59-08 16:44:00 Test Item Value Reference Range Interpretation Comments POC V pH (test code = POC V pH) 7.41 1 7.28-7.42 [facility] CenterRorjoyhYBKYBQZNQ7613-15-17 16:44:00 Test Item Value Reference Range Interpretation Comments POC V PCO2 (test code = POC V PCO2) 40 38-52 [facility] CenterLoclilkPEVFJNPYB3173-15-55 16:44:00 Test Item Value Reference Range Interpretation Comments POC V LA (test code = POC V LA) 1.1 0.5-2.2 [facility] CenterCngmtheKJCWSPAKS2425-46-84 16:44:00 Test Item Value Reference Range Interpretation Comments POC V PO2 (test code = POC V PO2) 41 20-49 [facility] CenterGezxgjuKPGJAETVP3775-77-73 16:44:00 Test Item Value Reference Range Interpretation Comments POC V HCO3 (test code = POC V HCO3) 25 22-26 [facility] CenterRjjlawyVYXRYDMFU2352-07-85 16:44:00 Test Item Value Reference Range Interpretation Comments POC V BE (test code = POC V BE) 1 -2-2 [facility] CenterFsltriyEAPPTRZRG4068-51-00 16:44:00 Test Item Value Reference Range Interpretation Comments POC V O2 Sat (calc) (test code = POC V 76.8 40.0-70.0 O2 Sat (calc)) [facility] CenterZtzkwsjHLYOIJIFB4133-15-94 16:44:00 Test Item Value Reference Range Interpretation Comments POC V Hgb Tot (test code = POC V Hgb 9.6 12.0-16.0 Tot) [facility] CenterLssakdaUCOODUNJX4838-38-91 16:44:00 Test Item Value Reference Range Interpretation Comments POC V Glu (test code = POC V Glu) 185 70-99 [facility] CenterYuofuscGZNXGTMWR3568-96-97 16:44:00 Test Item Value Reference Range Interpretation Comments POC V Hct (calc) (test code = POC V Hct 29.0 36.0-48.0 (calc)) [facility] [facility]evbhxvQYFTHQJJG5697-08-01 16:44:00 Test Item Value Reference Range Interpretation Comments POC V Cl (test code = POC V Cl) 100 95-109 [facility] CenterIpbdahzKWCAZIHJL0117-40-05 16:44:00 Test Item Value Reference Range Interpretation Comments POC V Ca Ion at pH 7.4 (test code = POC 1.20 1.05-1.25 V Ca Ion at pH 7.4) [facility] CenterQudvouuCSYZCEMAW9065-50-69 16:44:00 Test Item Value Reference Range Interpretation Comments POC V pH (test code = POC V pH) 7.41 1 7.28-7.42 [facility] CenterQuqxfpsNEIZBYKHT6230-81-57 16:44:00 Test Item Value Reference Range Interpretation Comments POC V PCO2 (test code = POC V PCO2) 40 38-52 [facility] CenterIjmurszNIPPYWDVA8451-42-02 16:44:00 Test Item Value Reference Range Interpretation Comments POC V PO2 (test code = POC V PO2) 41 20-49 [facility] CenterKckulorNNDXYMXJM5328-94-15 16:44:00 Test Item Value Reference Range Interpretation Comments POC V HCO3 (test code = POC V HCO3) 25 22-26 [facility] CenterBvjdlnqERFBNNSTN7034-94-77 16:44:00 Test Item Value Reference Range Interpretation Comments POC V BE (test code = POC V BE) 1 -2-2 [facility] CenterFbmqdehQJGMCTKEJ8438-80-53 16:44:00 Test Item Value Reference Range Interpretation Comments POC V O2 Sat (calc) (test code = POC V 76.8 40.0-70.0 O2 Sat (calc)) [facility] CenterBugzhgfWZWARGNTQ3254-04-10 16:44:00 Test Item Value Reference Range Interpretation Comments POC V Hgb Tot (test code = POC V Hgb 9.6 12.0-16.0 Tot) [facility] CenterFmauwmlIBEVHJROL1222-24-54 16:44:00 Test Item Value Reference Range Interpretation Comments POC V Glu (test code = POC V Glu) 185 70-99 [facility] CenterFbwergmMCKULALFS8618-84-66 16:44:00 Test Item Value Reference Range Interpretation Comments POC V Hct (calc) (test code = POC V Hct 29.0 36.0-48.0 (calc)) [facility] CenterGvcajjeXVRKYUFLB9788-49-17 16:44:00 Test Item Value Reference Range Interpretation Comments POC V Cl (test code = POC V Cl) 100 95-109 [facility] CenterBhdgsinFXFNTFVBU5459-13-24 16:44:00 Test Item Value Reference Range Interpretation Comments POC V Ca Ion at pH 7.4 (test code = POC 1.20 1.05-1.25 V Ca Ion at pH 7.4) [facility] CenterLirfgqlTXPGIXHFK4515-61-07 16:44:00 Test Item Value Reference Range Interpretation Comments POC V Source (test code = POC V Source) [facility] CenterVfgoxsmMQLYNRPYT1471-17-72 16:44:00 Test Item Value Reference Range Interpretation Comments POC V Temp (test code = POC V Temp) 37.0 [facility] CenterEwhpsreVHAFLGSHJ3920-25-84 16:44:00 Test Item Value Reference Range Interpretation Comments POC V Ion Ca (test code = POC V Ion Ca) 1.20 1.05-1.25 [facility] CenterTwmthpeFZVLHWLHQ6634-86-19 16:44:00 Test Item Value Reference Range Interpretation Comments POC V K (test code = POC V K) 4.0 3.5-5.1 [facility] CenterHfzktzdAKZXYLRKR9189-66-63 16:44:00 Test Item Value Reference Range Interpretation Comments POC V Na (test code = POC V Na) 130 135-145 [facility] CenterEgrkhdaMHJSDHHPQ6590-26-62 16:44:00 Test Item Value Reference Range Interpretation Comments POC V LA (test code = POC V LA) 1.1 0.5-2.2 [facility] CenterUnqscgcTDYBLUIPH0985-16-62 16:44:00 Test Item Value Reference Range Interpretation Comments POC V pH (test code = POC V pH) 7.41 1 7.28-7.42 [facility] CenterQdqusrkTFBXSNALT8048-73-62 16:44:00 Test Item Value Reference Range Interpretation Comments POC V PCO2 (test code = POC V PCO2) 40 38-52 [facility] CenterTkrdxdkKBUJATYLR2022-34-23 16:44:00 Test Item Value Reference Range Interpretation Comments POC V PO2 (test code = POC V PO2) 41 20-49 [facility] CenterRyyorzxLZSANSZWW1906-64-52 16:44:00 Test Item Value Reference Range Interpretation Comments POC V HCO3 (test code = POC V HCO3) 25 22-26 [facility] CenterOnjhtweRFTUJISOE4631-95-20 16:44:00 Test Item Value Reference Range Interpretation Comments POC V BE (test code = POC V BE) 1 -2-2 [facility] CenterPaxbzgjWVZLFMJWV5673-71-90 16:44:00 Test Item Value Reference Range Interpretation Comments POC V O2 Sat (calc) (test code = POC V 76.8 40.0-70.0 O2 Sat (calc)) [facility] CenterHagedtjJHPCMTAOW7410-14-68 16:44:00 Test Item Value Reference Range Interpretation Comments POC V Hgb Tot (test code = POC V Hgb 9.6 12.0-16.0 Tot) [facility] CenterDekfmxtMDDSVJOYW4793-36-45 16:44:00 Test Item Value Reference Range Interpretation Comments POC V Glu (test code = POC V Glu) 185 70-99 [facility] CenterMbbvsohJEYKIACUX1495-36-57 16:44:00 Test Item Value Reference Range Interpretation Comments POC V Hct (calc) (test code = POC V Hct 29.0 36.0-48.0 (calc)) [facility] CenterHmjjeiwPPCQHPABF2347-43-80 16:44:00 Test Item Value Reference Range Interpretation Comments POC V Cl (test code = POC V Cl) 100 95-109 [facility] CenterKrsxyyrLBJZFXLJT4736-35-69 16:44:00 Test Item Value Reference Range Interpretation Comments POC V Ca Ion at pH 7.4 (test code = POC 1.20 1.05-1.25 V Ca Ion at pH 7.4) [facility] CenterRxhuavnMVRPLTWXF7201-77-15 16:44:00 Test Item Value Reference Range Interpretation Comments POC V Source (test code = POC V Source) [facility] CenterNmoooqkZXNZFSTLG1465-47-54 16:44:00 Test Item Value Reference Range Interpretation Comments POC V Temp (test code = POC V Temp) 37.0 [facility] CenterGdwveemHHAOFKJGI1478-43-29 16:44:00 Test Item Value Reference Range Interpretation Comments POC V Ion Ca (test code = POC V Ion Ca) 1.20 1.05-1.25 [facility] CenterCzgreqmAQKAJMJRP9908-23-62 16:44:00 Test Item Value Reference Range Interpretation Comments POC V K (test code = POC V K) 4.0 3.5-5.1 [facility] CenterBusshrqNLQFOGCLN0569-84-72 16:44:00 Test Item Value Reference Range Interpretation Comments POC V Na (test code = POC V Na) 130 135-145 [facility] CenterFcrvhlnYNKHFHIFI8339-01-84 16:44:00 Test Item Value Reference Range Interpretation Comments POC V LA (test code = POC V LA) 1.1 0.5-2.2 [facility] CenterVjaqugoCCOUZCDRZ7680-80-63 16:44:00 Test Item Value Reference Range Interpretation Comments POC V pH (test code = POC V pH) 7.41 1 7.28-7.42 [facility] CenterGklxhptNXETJVIWR2769-02-36 16:44:00 Test Item Value Reference Range Interpretation Comments POC V PCO2 (test code = POC V PCO2) 40 38-52 [facility] CenterRbrolsbJYAPPWZVJ7805-66-94 16:44:00 Test Item Value Reference Range Interpretation Comments POC V PO2 (test code = POC V PO2) 41 20-49 [facility] CenterRprzigcIATZAKELO1004-54-16 16:44:00 Test Item Value Reference Range Interpretation Comments POC V HCO3 (test code = POC V HCO3) 25 22-26 [facility] CenterQqzljjdVRBCRFYVH2804-37-59 16:44:00 Test Item Value Reference Range Interpretation Comments POC V BE (test code = POC V BE) 1 -2-2 [facility] CenterHvobfqkGJMRGBLQE2861-07-10 16:44:00 Test Item Value Reference Range Interpretation Comments POC V O2 Sat (calc) (test code = POC V 76.8 40.0-70.0 O2 Sat (calc)) [facility] CenterPspkrbqMUPZVSRHX8000-09-35 16:44:00 Test Item Value Reference Range Interpretation Comments POC V Hgb Tot (test code = POC V Hgb 9.6 12.0-16.0 Tot) [facility] CenterPhyuzwwGJXGCUSGN2159-27-22 16:44:00 Test Item Value Reference Range Interpretation Comments POC V Glu (test code = POC V Glu) 185 70-99 [facility] CenterYyikadeLERZHWGOR4832-16-88 16:44:00 Test Item Value Reference Range Interpretation Comments POC V Hct (calc) (test code = POC V Hct 29.0 36.0-48.0 (calc)) [facility] CenterCuciwbrPKPNPQJGA7475-17-01 16:44:00 Test Item Value Reference Range Interpretation Comments POC V Cl (test code = POC V Cl) 100 95-109 [facility] CenterBoijjpkIMOKXIFWX9078-50-25 16:44:00 Test Item Value Reference Range Interpretation Comments POC V Ca Ion at pH 7.4 (test code = POC 1.20 1.05-1.25 V Ca Ion at pH 7.4) [facility] CenterKcnfqilQEYDDVBSD2099-58-60 16:44:00 Test Item Value Reference Range Interpretation Comments POC V Source (test code = POC V Source) [facility] CenterHwbvygtUAACHALLJ3087-59-73 16:44:00 Test Item Value Reference Range Interpretation Comments POC V Temp (test code = POC V Temp) 37.0 [facility] CenterNwyohgdHVLDZGLTP6831-91-88 16:44:00 Test Item Value Reference Range Interpretation Comments POC V Ion Ca (test code = POC V Ion Ca) 1.20 1.05-1.25 [facility] CenterMrpixxnODJRPBWSV8754-89-93 16:44:00 Test Item Value Reference Range Interpretation Comments POC V K (test code = POC V K) 4.0 3.5-5.1 [facility] CenterVzowvfdCGZLFIIBN0266-41-49 16:44:00 Test Item Value Reference Range Interpretation Comments POC V Na (test code = POC V Na) 130 135-145 [facility] CenterCezipgwMTYBTOEDF8241-83-43 16:44:00 Test Item Value Reference Range Interpretation Comments POC V LA (test code = POC V LA) 1.1 0.5-2.2 [facility] CenterNokesgaPEEDAYNSK8753-24-85 16:44:00 Test Item Value Reference Range Interpretation Comments POC V pH (test code = POC V pH) 7.41 1 7.28-7.42 [facility] CenterDepjhiwFIRTNZFWH9108-15-16 16:44:00 Test Item Value Reference Range Interpretation Comments POC V PCO2 (test code = POC V PCO2) 40 38-52 [facility] CenterMqgzzuwYQMLGRMSZ3365-16-91 16:44:00 Test Item Value Reference Range Interpretation Comments POC V PO2 (test code = POC V PO2) 41 20-49 [facility] CenterAsqapaiLKVPQTCIV2139-48-28 16:44:00 Test Item Value Reference Range Interpretation Comments POC V HCO3 (test code = POC V HCO3) 25 22-26 [facility] CenterYgyulvaTRVGDTNMQ3151-82-51 16:44:00 Test Item Value Reference Range Interpretation Comments POC V BE (test code = POC V BE) 1 -2-2 [facility] CenterIrqjecpFICWRKXOG4562-80-65 16:44:00 Test Item Value Reference Range Interpretation Comments POC V O2 Sat (calc) (test code = POC V 76.8 40.0-70.0 O2 Sat (calc)) [facility] CenterAncmxzbBLOHYUTAV0240-62-71 16:44:00 Test Item Value Reference Range Interpretation Comments POC V Hgb Tot (test code = POC V Hgb 9.6 12.0-16.0 Tot) [facility] CenterPseavdfUVCLLDQBC9410-23-32 16:44:00 Test Item Value Reference Range Interpretation Comments POC V Glu (test code = POC V Glu) 185 70-99 [facility] CenterCcgtjlpWOKKSDENG9365-80-85 16:44:00 Test Item Value Reference Range Interpretation Comments POC V Hct (calc) (test code = POC V Hct 29.0 36.0-48.0 (calc)) [facility] CenterYozsoivSEXBQPXRL1470-27-40 16:44:00 Test Item Value Reference Range Interpretation Comments POC V Cl (test code = POC V Cl) 100 95-109 [facility] CenterVacdcwyYQBGQOBHO2024-64-62 16:44:00 Test Item Value Reference Range Interpretation Comments POC V Ca Ion at pH 7.4 (test code = POC 1.20 1.05-1.25 V Ca Ion at pH 7.4) [facility] CenterCvrovhdRTCUJRYIM1308-09-35 16:44:00 Test Item Value Reference Range Interpretation Comments POC V Source (test code = POC V Source) [facility] CenterSyzpxswGKCMZMSYW9132-93-69 16:44:00 Test Item Value Reference Range Interpretation Comments POC V Temp (test code = POC V Temp) 37.0 [place] 223672-10-24 16:44:00 Test Item Value Reference Range Interpretation Comments POC V Ion Ca (test code = POC V Ion Ca) 1.20 1.05-1.25 [place] 223672-10-24 16:44:00 Test Item Value Reference Range Interpretation Comments POC V K (test code = POC V K) 4.0 3.5-5.1 [facility] CenterQoarjepEYMDSBTPZ5228-99-22 16:44:00 Test Item Value Reference Range Interpretation Comments POC V Na (test code = POC V Na) 130 135-145 [facility] CenterXsfaubwORNXVQVAQ2038-04-53 16:44:00 Test Item Value Reference Range Interpretation Comments POC V LA (test code = POC V LA) 1.1 0.5-2.2 [facility] CenterIwjrridVUBCMDVZQ7876-39-92 16:44:00 Test Item Value Reference Range Interpretation Comments POC V pH (test code = POC V pH) 7.41 1 7.28-7.42 [facility] CenterBqpydnvWEBAGJQTC8679-98-33 16:44:00 Test Item Value Reference Range Interpretation Comments POC V PCO2 (test code = POC V PCO2) 40 38-52 [facility] CenterXrktzruTGIBTWFBE7145-81-92 16:44:00 Test Item Value Reference Range Interpretation Comments POC V PO2 (test code = POC V PO2) 41 20-49 [facility] CenterLerefmlUEBIESYZV5737-32-73 16:44:00 Test Item Value Reference Range Interpretation Comments POC V HCO3 (test code = POC V HCO3) 25 22-26 [facility] CenterMxsvwvqDFBHVLUZG8362-41-06 16:44:00 Test Item Value Reference Range Interpretation Comments POC V BE (test code = POC V BE) 1 -2-2 [facility] CenterCnxtulqPVZKKITUO7870-33-30 16:44:00 Test Item Value Reference Range Interpretation Comments POC V O2 Sat (calc) (test code = POC V 76.8 40.0-70.0 O2 Sat (calc)) [facility] CenterKhpniiwQMNVDWUCY1220-35-55 16:44:00 Test Item Value Reference Range Interpretation Comments POC V Hgb Tot (test code = POC V Hgb 9.6 12.0-16.0 Tot) [facility] CenterFbhfzgiWZXEVTXPI9059-20-02 16:44:00 Test Item Value Reference Range Interpretation Comments POC V Glu (test code = POC V Glu) 185 70-99 [facility] CenterSfpvyhgLHDHNPEGW9072-85-39 16:44:00 Test Item Value Reference Range Interpretation Comments POC V Hct (calc) (test code = POC V Hct 29.0 36.0-48.0 (calc)) [facility] CenterHeqyeyaHMSYRIPKX2557-06-76 16:44:00 Test Item Value Reference Range Interpretation Comments POC V Cl (test code = POC V Cl) 100 95-109 [facility] CenterIqgftdtUVQSAPTOI1895-85-39 16:44:00 Test Item Value Reference Range Interpretation Comments POC V Ca Ion at pH 7.4 (test code = POC 1.20 1.05-1.25 V Ca Ion at pH 7.4) [facility] CenterEzggmvtWPWNSRZCO0803-93-14 16:44:00 Test Item Value Reference Range Interpretation Comments POC V Source (test code = POC V Source) [facility] [facility] CenterXdckzfdCIDIMGTTB1788-26-31 16:44:00 Test Item Value Reference Range Interpretation Comments POC V Temp (test code = POC V Temp) 37.0 [facility] CenterMpbcxbvRDJGNSURB5073-69-84 16:44:00 Test Item Value Reference Range Interpretation Comments POC V Ion Ca (test code = POC V Ion Ca) 1.20 1.05-1.25 [facility] CenterRbjiozyCEASPHUKA7060-40-94 16:44:00 Test Item Value Reference Range Interpretation Comments POC V K (test code = POC V K) 4.0 3.5-5.1 [facility] CenterFtiphfeFZVPQXWEA7786-04-79 16:44:00 Test Item Value Reference Range Interpretation Comments POC V Na (test code = POC V Na) 130 135-145 [facility] CenterUeyowivAOQFXFAWV7369-17-46 16:44:00 Test Item Value Reference Range Interpretation Comments POC V LA (test code = POC V LA) 1.1 0.5-2.2 [facility] CenterEsgjzqxNJJKOECDS3985-50-60 16:44:00 Test Item Value Reference Range Interpretation Comments POC V pH (test code = POC V pH) 7.41 1 7.28-7.42 [facility] CenterSgxdwyrCBPJWZHTY0371-38-07 16:44:00 Test Item Value Reference Range Interpretation Comments POC V PCO2 (test code = POC V PCO2) 40 38-52 [facility] CenterEosoldvKEPLQYMGJ8705-97-27 16:44:00 Test Item Value Reference Range Interpretation Comments POC V PO2 (test code = POC V PO2) 41 20-49 [facility] CenterSiwfctyHOLBSRBKP5073-22-20 16:44:00 Test Item Value Reference Range Interpretation Comments POC V HCO3 (test code = POC V HCO3) 25 22-26 [facility] CenterJntttxxDXTCLJGDR4108-66-72 16:44:00 Test Item Value Reference Range Interpretation Comments POC V BE (test code = POC V BE) 1 -2-2 [facility] CenterCjgavttCEBBSUSUA5550-02-30 16:44:00 Test Item Value Reference Range Interpretation Comments POC V O2 Sat (calc) (test code = POC V 76.8 40.0-70.0 O2 Sat (calc)) [facility] CenterNedjvapOIDDDXRFV5134-73-86 16:44:00 Test Item Value Reference Range Interpretation Comments POC V Hgb Tot (test code = POC V Hgb 9.6 12.0-16.0 Tot) [facility] CenterFvyvaurMEHRPSAGU2652-56-77 16:44:00 Test Item Value Reference Range Interpretation Comments POC V Glu (test code = POC V Glu) 185 70-99 [facility] CenterMrbtgsrUAPZJEOQM5256-20-41 16:44:00 Test Item Value Reference Range Interpretation Comments POC V Hct (calc) (test code = POC V Hct 29.0 36.0-48.0 (calc)) [facility] CenterTguosjcBRKXDDJGY2773-36-08 16:44:00 Test Item Value Reference Range Interpretation Comments POC V Cl (test code = POC V Cl) 100 95-109 [facility] CenterPryhtyaQPTHNKSEX2016-58-48 16:44:00 Test Item Value Reference Range Interpretation Comments POC V Ca Ion at pH 7.4 (test code = POC 1.20 1.05-1.25 V Ca Ion at pH 7.4) [facility] CenterUgzxkgfLRBXHPOKN6685-70-26 16:44:00 Test Item Value Reference Range Interpretation Comments POC V Source (test code = POC V Source) [facility] [facility] CenterOrzucriXYTJSDGTF2424-19-91 16:44:00 Test Item Value Reference Range Interpretation Comments POC V Temp (test code = POC V Temp) 37.0 [facility] CenterFgkzmmiFDGWYRFQV6751-39-47 16:44:00 Test Item Value Reference Range Interpretation Comments POC V Ion Ca (test code = POC V Ion Ca) 1.20 1.05-1.25 [facility] CenterVqyailwUUERSCGOO6964-07-72 16:44:00 Test Item Value Reference Range Interpretation Comments POC V K (test code = POC V K) 4.0 3.5-5.1 [facility] CenterWrpzeklHUADQGNIG8839-62-82 16:44:00 Test Item Value Reference Range Interpretation Comments POC V Na (test code = POC V Na) 130 135-145 [facility] CenterXefurpaALQUBZPRH0621-82-01 16:44:00 Test Item Value Reference Range Interpretation Comments POC V LA (test code = POC V LA) 1.1 0.5-2.2 [facility] CenterXjnomvbJWJYTEWGX2578-56-00 16:44:00 Test Item Value Reference Range Interpretation Comments POC V pH (test code = POC V pH) 7.41 1 7.28-7.42 [facility] CenterHaouggiLBMTUSAPS5431-45-14 16:44:00 Test Item Value Reference Range Interpretation Comments POC V PCO2 (test code = POC V PCO2) 40 38-52 [facility] CenterYqdugtrMKHDOOYFU1685-14-23 16:44:00 Test Item Value Reference Range Interpretation Comments POC V PO2 (test code = POC V PO2) 41 20-49 [facility] CenterEfscwmkPBANJUXHA9648-77-69 16:44:00 Test Item Value Reference Range Interpretation Comments POC V HCO3 (test code = POC V HCO3) 25 22-26 [facility] CenterFuxximdHSJLGMWQV0958-54-46 16:44:00 Test Item Value Reference Range Interpretation Comments POC V BE (test code = POC V BE) 1 -2-2 [facility] CenterGfiucuvQJXGDSAUM1786-44-72 16:44:00 Test Item Value Reference Range Interpretation Comments POC V O2 Sat (calc) (test code = POC V 76.8 40.0-70.0 O2 Sat (calc)) [facility] CenterTgcppowUIZIATRIQ5224-40-10 16:44:00 Test Item Value Reference Range Interpretation Comments POC V Hgb Tot (test code = POC V Hgb 9.6 12.0-16.0 Tot) [facility] CenterIxphsknYZERXKKPR9875-93-41 16:44:00 Test Item Value Reference Range Interpretation Comments POC V Glu (test code = POC V Glu) 185 70-99 [facility] CenterSfaeowsCTVVOTPEH3238-14-31 16:44:00 Test Item Value Reference Range Interpretation Comments POC V Hct (calc) (test code = POC V Hct 29.0 36.0-48.0 (calc)) [facility] CenterRtyxrttYJHMCIQAO9997-30-17 16:44:00 Test Item Value Reference Range Interpretation Comments POC V Cl (test code = POC V Cl) 100 95-109 [facility] CenterUqtdyxiYSAEWDYPZ3061-31-65 16:44:00 Test Item Value Reference Range Interpretation Comments POC V Ca Ion at pH 7.4 (test code = POC 1.20 1.05-1.25 V Ca Ion at pH 7.4) [facility] CenterKandvueUKIMCHWOE4492-92-03 16:44:00 Test Item Value Reference Range Interpretation Comments POC V Source (test code = POC V Source) [place] [facility] CenterAqicbmaQDVMRMDDJ3262-56-48 16:44:00 Test Item Value Reference Range Interpretation Comments POC V Temp (test code = POC V Temp) 37.0 [facility] CenterVzfsjuaTLHRPZJOY8647-76-61 16:44:00 Test Item Value Reference Range Interpretation Comments POC V Ion Ca (test code = POC V Ion Ca) 1.20 1.05-1.25 [facility] CenterYzfdwevGFDCJVQRM1558-54-46 16:44:00 Test Item Value Reference Range Interpretation Comments POC V K (test code = POC V K) 4.0 3.5-5.1 [facility] CenterNuiebmsZSEELGBQD0688-20-25 16:44:00 Test Item Value Reference Range Interpretation Comments POC V Na (test code = POC V Na) 130 135-145 [facility] CenterPtbqvbwHNMDYOJHX4475-37-06 16:44:00 Test Item Value Reference Range Interpretation Comments POC V LA (test code = POC V LA) 1.1 0.5-2.2 [facility] CenterUxgxvouOYPRPETJE5136-83-75 16:44:00 Test Item Value Reference Range Interpretation Comments POC V pH (test code = POC V pH) 7.41 1 7.28-7.42 [facility] CenterYeqbbllDVWSRILEX0016-07-88 16:44:00 Test Item Value Reference Range Interpretation Comments POC V PCO2 (test code = POC V PCO2) 40 38-52 [facility] CenterPmlfgjrVFQTBNWOB7863-83-57 16:44:00 Test Item Value Reference Range Interpretation Comments POC V PO2 (test code = POC V PO2) 41 20-49 [facility] CenterOorkbaxXWTVMVPNH9276-26-30 16:44:00 Test Item Value Reference Range Interpretation Comments POC V HCO3 (test code = POC V HCO3) 25 22-26 [facility] CenterDktbyeoRZJZVOMSU1888-85-80 16:44:00 Test Item Value Reference Range Interpretation Comments POC V BE (test code = POC V BE) 1 -2-2 [facility] CenterIcbchkjMGGUIWSSU9938-32-56 16:44:00 Test Item Value Reference Range Interpretation Comments POC V O2 Sat (calc) (test code = POC V 76.8 40.0-70.0 O2 Sat (calc)) [facility] CenterAczotdjIYKNEXTRW5557-26-18 16:44:00 Test Item Value Reference Range Interpretation Comments POC V Hgb Tot (test code = POC V Hgb 9.6 12.0-16.0 Tot) [facility] CenterCjmedsaVNFTIHIMA5488-47-12 16:44:00 Test Item Value Reference Range Interpretation Comments POC V Glu (test code = POC V Glu) 185 70-99 [facility] CenterSkuqaedBGIKZGBMG8159-70-25 16:44:00 Test Item Value Reference Range Interpretation Comments POC V Hct (calc) (test code = POC V Hct 29.0 36.0-48.0 (calc)) [facility] CenterLwrykxrFCLHORBKT6110-89-54 16:44:00 Test Item Value Reference Range Interpretation Comments POC V Cl (test code = POC V Cl) 100 95-109 [facility] CenterXpemotyVOCSHDUJO3050-11-97 16:44:00 Test Item Value Reference Range Interpretation Comments POC V Ca Ion at pH 7.4 (test code = POC 1.20 1.05-1.25 V Ca Ion at pH 7.4) [facility] CenterSkfwzmpZNUAWSRNN6750-62-91 09:27:00 Test Item Value Reference Range Interpretation Comments Vancomycin AUC (test code = Vancomycin 13.5 AUC) [facility] CenterGmuvimtSIYLJKBFK3936-26-81 09:27:00 Test Item Value Reference Range Interpretation Comments Vancomycin AUC (test code = Vancomycin 13.5 AUC) [facility] CenterVimtlhzDCBQQIKBI9222-90-33 09:27:00 Test Item Value Reference Range Interpretation Comments Vancomycin AUC (test code = Vancomycin 13.5 AUC) [facility] CenterLqpnmkuFQDEMHYQC3178-23-22 09:27:00 Test Item Value Reference Range Interpretation Comments Vancomycin AUC (test code = Vancomycin 13.5 AUC) [facility] CenterAtlughaFHYTBFPOI1957-10-54 09:27:00 Test Item Value Reference Range Interpretation Comments Vancomycin AUC (test code = Vancomycin 13.5 AUC) [facility] CenterEzfufzpMBBBTNEYT6232-48-79 09:27:00 Test Item Value Reference Range Interpretation Comments Vancomycin AUC (test code = Vancomycin 13.5 AUC) [facility] CenterMvhpdgnTXAYZEYLB9861-92-54 09:27:00 Test Item Value Reference Range Interpretation Comments Vancomycin AUC (test code = Vancomycin 13.5 AUC) [facility] CenterUclgyjgJBRDYIDVJ1928-56-45 09:27:00 Test Item Value Reference Range Interpretation Comments Vancomycin AUC (test code = Vancomycin 13.5 AUC) [facility] [facility]PuudbeiQONJJLTKC1439-83-35 09:27:00 Test Item Value Reference Range Interpretation Comments Vancomycin AUC (test code = Vancomycin 13.5 AUC) [facility] CenterAidsiabJROVCYCZU9532-41-95 09:27:00 Test Item Value Reference Range Interpretation Comments Vancomycin AUC (test code = Vancomycin 13.5 AUC) [facility] CenterScrcyqiWZONOJWWP9279-09-98 09:27:00 Test Item Value Reference Range Interpretation Comments Vancomycin AUC (test code = Vancomycin 13.5 AUC) [facility] CenterBxxgfksXZRWPZBKH6348-98-38 09:27:00 Test Item Value Reference Range Interpretation Comments Vancomycin AUC (test code = Vancomycin 13.5 AUC) [facility] CenterSfavifaOIAOOUJIN7069-60-09 09:27:00 Test Item Value Reference Range Interpretation Comments Vancomycin AUC (test code = Vancomycin 13.5 AUC) [facility] CenterZuxsuqnNPOBMWQFD6932-56-92 09:27:00 Test Item Value Reference Range Interpretation Comments Vancomycin AUC (test code = Vancomycin 13.5 AUC) [facility] CenterAcawwkqOCZELSRYC3680-01-07 09:27:00 Test Item Value Reference Range Interpretation Comments Vancomycin AUC (test code = Vancomycin 13.5 AUC) [facility] CenterAbjyxqhCJLRWYIKQ4660-47-65 09:27:00 Test Item Value Reference Range Interpretation Comments Vancomycin AUC (test code = Vancomycin 13.5 AUC) [facility] CenterTsrldfzVDAQVRNGV0857-78-24 09:27:00 Test Item Value Reference Range Interpretation Comments Vancomycin AUC (test code = Vancomycin 13.5 AUC) [facility] CenterLpnrgxzNOQINGKND2306-73-42 09:27:00 Test Item Value Reference Range Interpretation Comments Vancomycin AUC (test code = Vancomycin 13.5 AUC) [facility] CenterDyylspbSSFNJOKCR4135-96-27 09:27:00 Test Item Value Reference Range Interpretation Comments Vancomycin AUC (test code = Vancomycin 13.5 AUC) [facility] CenterUjovlczQPNIXHHDC8454-86-61 09:27:00 Test Item Value Reference Range Interpretation Comments Vancomycin AUC (test code = Vancomycin 13.5 AUC) [facility] CenterTujtgmtGPIDFBWCJ9712-17-16 09:27:00 Test Item Value Reference Range Interpretation Comments Vancomycin AUC (test code = Vancomycin 13.5 AUC) [facility] CenterFllbqrtPVJGNUYKP1865-51-80 09:27:00 Test Item Value Reference Range Interpretation Comments Vancomycin AUC (test code = Vancomycin 13.5 AUC) [facility] CenterJjobwasWIHWCQUVD2070-82-55 09:27:00 Test Item Value Reference Range Interpretation Comments Vancomycin AUC (test code = Vancomycin 13.5 AUC) [facility] CenterRgistlnHBQXCQMWN0309-92-89 09:27:00 Test Item Value Reference Range Interpretation Comments Vancomycin AUC (test code = Vancomycin 13.5 AUC) [facility] CenterMzvafdiXYNYPJGOR9622-91-45 09:27:00 Test Item Value Reference Range Interpretation Comments Vancomycin AUC (test code = Vancomycin 13.5 AUC) [facility] CenterUnrogqiVDXVNUNCZ6956-09-35 09:27:00 Test Item Value Reference Range Interpretation Comments Vancomycin AUC (test code = Vancomycin 13.5 AUC) [facility] CenterUzktlhmIHFOJTEMB2241-55-46 09:27:00 Test Item Value Reference Range Interpretation Comments Vancomycin AUC (test code = Vancomycin 13.5 AUC) [facility] CenterNvovzuuKBCTPSUIL5304-51-04 09:27:00 Test Item Value Reference Range Interpretation Comments Vancomycin AUC (test code = Vancomycin 13.5 AUC) [facility] CenterIetkipmFJNWZAGQA8558-08-02 09:27:00 Test Item Value Reference Range Interpretation Comments Vancomycin AUC (test code = Vancomycin 13.5 AUC) [facility] CenterYbtlagmDEEPFTREJ8306-84-03 09:27:00 Test Item Value Reference Range Interpretation Comments Vancomycin AUC (test code = Vancomycin 13.5 AUC) [facility] CenterShkpsplJNAHPQKKD9995-80-71 09:27:00 Test Item Value Reference Range Interpretation Comments Vancomycin AUC (test code = Vancomycin 13.5 AUC) [facility] CenterSnvcoeoRXZMBEAHS6121-06-72 09:27:00 Test Item Value Reference Range Interpretation Comments Vancomycin AUC (test code = Vancomycin 13.5 AUC) [facility] CenterKrxuvfiAEFOUXFOC2224-49-14 09:27:00 Test Item Value Reference Range Interpretation Comments Vancomycin AUC (test code = Vancomycin 13.5 AUC) [facility] CenterOoqbzgsYPHGSCDPE0165-53-12 09:27:00 Test Item Value Reference Range Interpretation Comments Vancomycin AUC (test code = Vancomycin 13.5 AUC) [facility] CenterXupilztBOFFLXRZI0051-53-40 09:27:00 Test Item Value Reference Range Interpretation Comments Vancomycin AUC (test code = Vancomycin 13.5 AUC) [facility] CenterUuiyqokNMQLCPQXF0096-01-60 09:27:00 Test Item Value Reference Range Interpretation Comments Vancomycin AUC (test code = Vancomycin 13.5 AUC) [facility] CenterOeqftrqXTVXDBEEE5483-89-26 09:27:00 Test Item Value Reference Range Interpretation Comments Vancomycin AUC (test code = Vancomycin 13.5 AUC) [facility] CenterUfunnxaFZJBXOSKL1317-43-27 09:27:00 Test Item Value Reference Range Interpretation Comments Vancomycin AUC (test code = Vancomycin 13.5 AUC) [facility] CenterRkxfhzlNKSUNFHBC1690-51-01 09:27:00 Test Item Value Reference Range Interpretation Comments Vancomycin AUC (test code = Vancomycin 13.5 AUC) [facility] CenterQojbyraDAKKWKZMP9222-97-18 09:27:00 Test Item Value Reference Range Interpretation Comments Vancomycin AUC (test code = Vancomycin 13.5 AUC) [facility] CenterWsjnnfmYDKAXNRPI0812-12-90 09:27:00 Test Item Value Reference Range Interpretation Comments Vancomycin AUC (test code = Vancomycin 13.5 AUC) [facility] CenterXqleosuGVEZAVDHX3032-80-34 09:27:00 Test Item Value Reference Range Interpretation Comments Vancomycin AUC (test code = Vancomycin 13.5 AUC) [facility] CenterFrxirgxURRLEXAWH6980-09-54 09:27:00 Test Item Value Reference Range Interpretation Comments Vancomycin AUC (test code = Vancomycin 13.5 AUC) [facility] CenterPkmtjutKWDUTWZAA8792-90-97 09:27:00 Test Item Value Reference Range Interpretation Comments Vancomycin AUC (test code = Vancomycin 13.5 AUC) [facility] CenterTgmceixLNEAQGCIS7257-11-42 09:27:00 Test Item Value Reference Range Interpretation Comments Vancomycin AUC (test code = Vancomycin 13.5 AUC) [facility] CenterElarimqNGWVPSWMV8502-29-13 09:27:00 Test Item Value Reference Range Interpretation Comments Vancomycin AUC (test code = Vancomycin 13.5 AUC) [facility] CenterLtzetuvIFWSGPWHU2194-54-51 09:27:00 Test Item Value Reference Range Interpretation Comments Vancomycin AUC (test code = Vancomycin 13.5 AUC) [facility] CenterPetywziYKEVETLSF7382-50-51 09:27:00 Test Item Value Reference Range Interpretation Comments Vancomycin AUC (test code = Vancomycin 13.5 AUC) [facility] CenterApppdnwZWHQPPYLS0265-77-37 09:27:00 Test Item Value Reference Range Interpretation Comments Vancomycin AUC (test code = Vancomycin 13.5 AUC) [facility] CenterGxqksxnQNBFWFZQY9432-32-07 09:27:00 Test Item Value Reference Range Interpretation Comments Vancomycin AUC (test code = Vancomycin 13.5 AUC) [facility] CenterBoeokwdYULXGXBNI9837-13-22 09:27:00 Test Item Value Reference Range Interpretation Comments Vancomycin AUC (test code = Vancomycin 13.5 AUC) [facility] CenterMlpyqwvUKIFUJSKG8043-78-19 09:27:00 Test Item Value Reference Range Interpretation Comments Vancomycin AUC (test code = Vancomycin 13.5 AUC) [facility] CenterOwzfggzHWDCWDBEA2421-84-90 09:27:00 Test Item Value Reference Range Interpretation Comments Vancomycin AUC (test code = Vancomycin 13.5 AUC) [facility] CenterSqbldoqYFMIXFILS8537-17-20 09:27:00 Test Item Value Reference Range Interpretation Comments Vancomycin AUC (test code = Vancomycin 13.5 AUC) [facility] CenterOtxabmpYRNBGAJHF3823-50-80 09:27:00 Test Item Value Reference Range Interpretation Comments Vancomycin AUC (test code = Vancomycin 13.5 AUC) [facility] CenterRsibhsgOQIHLJBLJ6739-27-83 09:27:00 Test Item Value Reference Range Interpretation Comments Vancomycin AUC (test code = Vancomycin 13.5 AUC) [facility] CenterWhvrofgHTNOQIMTN9873-83-37 09:27:00 Test Item Value Reference Range Interpretation Comments Vancomycin AUC (test code = Vancomycin 13.5 AUC) [facility] CenterWpxetlkMNLESDVRH9990-97-42 09:27:00 Test Item Value Reference Range Interpretation Comments Vancomycin AUC (test code = Vancomycin 13.5 AUC) [facility] CenterXctnpmzZXAEOVMGM9422-44-60 09:27:00 Test Item Value Reference Range Interpretation Comments Vancomycin AUC (test code = Vancomycin 13.5 AUC) [facility] CenterEpdpwplCRGENANRY1424-64-18 09:27:00 Test Item Value Reference Range Interpretation Comments Vancomycin AUC (test code = Vancomycin 13.5 AUC) [facility] CenterTfaqenmVZLGUXPRP8135-13-81 09:27:00 Test Item Value Reference Range Interpretation Comments Vancomycin AUC (test code = Vancomycin 13.5 AUC) [facility] CenterWmihatgCPXICWXJC2605-35-69 09:27:00 Test Item Value Reference Range Interpretation Comments Vancomycin AUC (test code = Vancomycin 13.5 AUC) [facility] CenterIpeztteYLKBGNXHA9407-76-85 09:27:00 Test Item Value Reference Range Interpretation Comments Vancomycin AUC (test code = Vancomycin 13.5 AUC) [facility] CenterXrwehtfGGRABZZCO3866-12-85 09:27:00 Test Item Value Reference Range Interpretation Comments Vancomycin AUC (test code = Vancomycin 13.5 AUC) [facility] CenterKjxguruAXMOMQHRT0811-02-68 09:27:00 Test Item Value Reference Range Interpretation Comments Vancomycin AUC (test code = Vancomycin 13.5 AUC) [facility] CenterYwmxyxgQAORJTDRC0349-43-89 09:27:00 Test Item Value Reference Range Interpretation Comments Vancomycin AUC (test code = Vancomycin 13.5 AUC) [facility] CenterMbwbnedPUURGVRHK0126-62-90 09:27:00 Test Item Value Reference Range Interpretation Comments Vancomycin AUC (test code = Vancomycin 13.5 AUC) [facility] CenterOvqxjdzCYGPPJZXS5688-92-61 09:27:00 Test Item Value Reference Range Interpretation Comments Vancomycin AUC (test code = Vancomycin 13.5 AUC) [facility] CenterBqkvjilXNLNWGKSM9803-13-19 09:27:00 Test Item Value Reference Range Interpretation Comments Vancomycin AUC (test code = Vancomycin 13.5 AUC) [facility] CenterFdmmelfZIILYTSKW0397-98-73 09:27:00 Test Item Value Reference Range Interpretation Comments Vancomycin AUC (test code = Vancomycin 13.5 AUC) [facility] CenterRwvpnfaMSTOXTSRM1325-19-28 09:27:00 Test Item Value Reference Range Interpretation Comments Vancomycin AUC (test code = Vancomycin 13.5 AUC) [facility] CenterYkhqwdnGRYFWYEOU8568-84-94 09:27:00 Test Item Value Reference Range Interpretation Comments Vancomycin AUC (test code = Vancomycin 13.5 AUC) [facility] CenterFhaqddxIHIIAMCOF7638-07-80 09:27:00 Test Item Value Reference Range Interpretation Comments Vancomycin AUC (test code = Vancomycin 13.5 AUC) [facility] CenterUzzsyavBSBRKMNYC5045-47-48 09:27:00 Test Item Value Reference Range Interpretation Comments Vancomycin AUC (test code = Vancomycin 13.5 AUC) [facility] CenterMyjolwvASDJMOIAJ9003-89-54 09:27:00 Test Item Value Reference Range Interpretation Comments Vancomycin AUC (test code = Vancomycin 13.5 AUC) [facility] CenterTcdejanORANFBYZX7966-83-60 09:27:00 Test Item Value Reference Range Interpretation Comments Vancomycin AUC (test code = Vancomycin 13.5 AUC) [facility] CenterAfpypzkNOEUNRCOT2424-22-08 09:27:00 Test Item Value Reference Range Interpretation Comments Vancomycin AUC (test code = Vancomycin 13.5 AUC) [facility] CenterKtdsgbgOZCNZYLUH1127-36-04 09:27:00 Test Item Value Reference Range Interpretation Comments Vancomycin AUC (test code = Vancomycin 13.5 AUC) [facility] CenterRpoxdgnXZUTVTNOL9955-13-75 09:27:00 Test Item Value Reference Range Interpretation Comments Vancomycin AUC (test code = Vancomycin 13.5 AUC) [facility] CenterYkslrknADQXJJYZY8675-23-54 09:27:00 Test Item Value Reference Range Interpretation Comments Vancomycin AUC (test code = Vancomycin 13.5 AUC) [facility] CenterRsgmmsqIXNSRCGJT0526-79-57 09:27:00 Test Item Value Reference Range Interpretation Comments Vancomycin AUC (test code = Vancomycin 13.5 AUC) [facility] CenterInhjxfnYJMNDOVGW5590-90-37 09:27:00 Test Item Value Reference Range Interpretation Comments Vancomycin AUC (test code = Vancomycin 13.5 AUC) [facility] CenterBgoxekiAYKWCEMPD1852-56-05 09:27:00 Test Item Value Reference Range Interpretation Comments Vancomycin AUC (test code = Vancomycin 13.5 AUC) [facility] CenterYqgonxmUYMRPUGZM0397-43-39 09:27:00 Test Item Value Reference Range Interpretation Comments Vancomycin AUC (test code = Vancomycin 13.5 AUC) [facility] CenterZhtqzexCIYOBFWOI0174-62-32 09:27:00 Test Item Value Reference Range Interpretation Comments Vancomycin AUC (test code = Vancomycin 13.5 AUC) [facility] CenterMbycrulODIVWEVVB4229-11-49 09:27:00 Test Item Value Reference Range Interpretation Comments Vancomycin AUC (test code = Vancomycin 13.5 AUC) [facility] CenterIlvmlzpXRKQSIXSH2829-18-38 09:27:00 Test Item Value Reference Range Interpretation Comments Vancomycin AUC (test code = Vancomycin 13.5 AUC) [facility] CenterIeflahiMNSRYJSOD4106-96-72 09:27:00 Test Item Value Reference Range Interpretation Comments Vancomycin AUC (test code = Vancomycin 13.5 AUC) [facility] CenterAepxpanKWXLQNZES2781-33-44 09:27:00 Test Item Value Reference Range Interpretation Comments Vancomycin AUC (test code = Vancomycin 13.5 AUC) [facility] CenterSievcdyHRAMSAUMD3072-97-57 09:27:00 Test Item Value Reference Range Interpretation Comments Vancomycin AUC (test code = Vancomycin 13.5 AUC) [facility] CenterZqkqlfuUQHZPJAFT3289-30-75 09:27:00 Test Item Value Reference Range Interpretation Comments Vancomycin AUC (test code = Vancomycin 13.5 AUC) [facility] CenterKawnnmfPLPDINYLP3458-53-98 09:27:00 Test Item Value Reference Range Interpretation Comments Vancomycin AUC (test code = Vancomycin 13.5 AUC) [facility] CenterHsodlhxTANRNJEXJ4588-39-43 09:27:00 Test Item Value Reference Range Interpretation Comments Vancomycin AUC (test code = Vancomycin 13.5 AUC) [facility]DbvuvzhVSRLXJMITB9287-92-55 03:00:00 Test Item Value Reference Range Interpretation Comments Hgb (test code = Hgb) 7.6 12.0-16.0 [facility] HospitalNgbzkkuRKJSPGIIVO8049-65-69 03:00:00 Test Item Value Reference Range Interpretation Comments Hct (test code = Hct) 23.1 36.0-48.0 [place] 406462-10-24 03:00:00 Test Item Value Reference Range Interpretation Comments Hgb (test code = Hgb) 7.6 12.0-16.0 [facility] HospitalGyjrcurCIRUHNGQDF1650-07-92 03:00:00 Test Item Value Reference Range Interpretation Comments Hct (test code = Hct) 23.1 36.0-48.0 [facility] HospitalBghywdiBLIBYBZEZT8898-07-13 03:00:00 Test Item Value Reference Range Interpretation Comments Hgb (test code = Hgb) 7.6 12.0-16.0 [place] 406462-10-24 03:00:00 Test Item Value Reference Range Interpretation Comments Hct (test code = Hct) 23.1 36.0-48.0 [facility] HospitalUzgednnUGJDYNZGGD9960-87-72 03:00:00 Test Item Value Reference Range Interpretation Comments Hgb (test code = Hgb) 7.6 12.0-16.0 [facility] HospitalGgoznjuWBKNPNNLOC8000-80-70 03:00:00 Test Item Value Reference Range Interpretation Comments Hct (test code = Hct) 23.1 36.0-48.0 [facility] HospitalGwylsjfKQMHTZTGTK9104-77-35 03:00:00 Test Item Value Reference Range Interpretation Comments Hgb (test code = Hgb) 7.6 12.0-16.0 [facility] HospitalGmrkpgnUWVWPBZYOD7876-59-80 03:00:00 Test Item Value Reference Range Interpretation Comments Hct (test code = Hct) 23.1 36.0-48.0 [facility] HospitalAixuwrrKLSKJDHFPR2715-76-01 03:00:00 Test Item Value Reference Range Interpretation Comments Hgb (test code = Hgb) 7.6 12.0-16.0 [facility] HospitalKjtqkwfYRGESQMJAP7915-33-26 03:00:00 Test Item Value Reference Range Interpretation Comments Hct (test code = Hct) 23.1 36.0-48.0 [facility] HospitalIdcodpjLHWUVWGREQ4875-82-97 03:00:00 Test Item Value Reference Range Interpretation Comments Hgb (test code = Hgb) 7.6 12.0-16.0 [place] 406462-10-24 03:00:00 Test Item Value Reference Range Interpretation Comments Hct (test code = Hct) 23.1 36.0-48.0 [place] 406462-10-24 03:00:00 Test Item Value Reference Range Interpretation Comments Hgb (test code = Hgb) 7.6 12.0-16.0 [facility] HospitalWpwbiylWDILNJKRTQ2022-13-49 03:00:00 Test Item Value Reference Range Interpretation Comments Hgb (test code = Hgb) 7.6 12.0-16.0 [facility] HospitalKyecafnAPBRXBYIRR3927-39-40 03:00:00 Test Item Value Reference Range Interpretation Comments Hct (test code = Hct) 23.1 36.0-48.0 [facility] HospitalYdysvnvNZRKZQKPAI6393-30-13 03:00:00 Test Item Value Reference Range Interpretation Comments Hct (test code = Hct) 23.1 36.0-48.0 [facility] HospitalNenhfikHQUVOJREYQ0958-66-40 03:00:00 Test Item Value Reference Range Interpretation Comments Hgb (test code = Hgb) 7.6 12.0-16.0 [facility] HospitalQqmeozmZTASSDVAPL0916-27-11 03:00:00 Test Item Value Reference Range Interpretation Comments Hct (test code = Hct) 23.1 36.0-48.0 [facility] HospitalXnhewohLVCTUURDXS1254-04-33 03:00:00 Test Item Value Reference Range Interpretation Comments Hgb (test code = Hgb) 7.6 12.0-16.0 [facility] HospitalXirqatnRMLFDQZLLZ0117-23-97 03:00:00 Test Item Value Reference Range Interpretation Comments Hct (test code = Hct) 23.1 36.0-48.0 [facility] HospitalPtqtbtxCFWGIRGIXD1957-92-34 03:00:00 Test Item Value Reference Range Interpretation Comments Hgb (test code = Hgb) 7.6 12.0-16.0 [facility] HospitalGpjbcwkZBZNGUUHPO2723-85-77 03:00:00 Test Item Value Reference Range Interpretation Comments Hct (test code = Hct) 23.1 36.0-48.0 [facility] HospitalXstksyxZYUAMIKXDY4273-22-81 03:00:00 Test Item Value Reference Range Interpretation Comments Hgb (test code = Hgb) 7.6 12.0-16.0 [facility] HospitalMhitxifELPDJLQUUE8316-74-05 03:00:00 Test Item Value Reference Range Interpretation Comments Hct (test code = Hct) 23.1 36.0-48.0 [facility] HospitalCfhwydaNCMVYSABOW0167-86-16 03:00:00 Test Item Value Reference Range Interpretation Comments Hgb (test code = Hgb) 7.6 12.0-16.0 [facility]HzzxnirFCLXAXISHB7363-32-36 03:00:00 Test Item Value Reference Range Interpretation Comments Hct (test code = Hct) 23.1 36.0-48.0 [facility] HospitalKqtwimrHYOPSZDXJF9195-68-29 03:00:00 Test Item Value Reference Range Interpretation Comments Hgb (test code = Hgb) 7.6 12.0-16.0 [facility] HospitalSncwdnyMNHLNCULXF4212-57-57 03:00:00 Test Item Value Reference Range Interpretation Comments Hct (test code = Hct) 23.1 36.0-48.0 [facility] HospitalElhjzqkYGWGSCBNBN3436-57-82 03:00:00 Test Item Value Reference Range Interpretation Comments Hgb (test code = Hgb) 7.6 12.0-16.0 [facility] HospitalAqwewluPIIVQEVJAL7596-48-79 03:00:00 Test Item Value Reference Range Interpretation Comments Hct (test code = Hct) 23.1 36.0-48.0 [facility] HospitalHyepcrcIXOKKDTMVN0013-08-35 03:00:00 Test Item Value Reference Range Interpretation Comments Hgb (test code = Hgb) 7.6 12.0-16.0 [facility] HospitalBuzyjbfVCMNGDXREW1617-16-26 03:00:00 Test Item Value Reference Range Interpretation Comments Hct (test code = Hct) 23.1 36.0-48.0 [facility] HospitalQhaurbsLMAXKTJOUV4139-02-46 03:00:00 Test Item Value Reference Range Interpretation Comments Hgb (test code = Hgb) 7.6 12.0-16.0 [facility] HospitalNcddaprQPIDXXQEVD6162-10-85 03:00:00 Test Item Value Reference Range Interpretation Comments Hct (test code = Hct) 23.1 36.0-48.0 [facility] HospitalEkztcpeJFZLIOOYSW3502-22-88 03:00:00 Test Item Value Reference Range Interpretation Comments Hgb (test code = Hgb) 7.6 12.0-16.0 [facility] HospitalMggkmvsKYDYORCUMH1415-56-73 03:00:00 Test Item Value Reference Range Interpretation Comments Hct (test code = Hct) 23.1 36.0-48.0 [facility] HospitalXyqapujJGVARQIUMK1116-17-45 03:00:00 Test Item Value Reference Range Interpretation Comments Hgb (test code = Hgb) 7.6 12.0-16.0 [facility] HospitalYpzjsqfYATQGXXTPY4799-73-19 03:00:00 Test Item Value Reference Range Interpretation Comments Hct (test code = Hct) 23.1 36.0-48.0 [facility] HospitalTqlhqndBNWQTIYGAS6067-86-30 03:00:00 Test Item Value Reference Range Interpretation Comments Hgb (test code = Hgb) 7.6 12.0-16.0 [facility] HospitalYiqgcjrILROYBDXNY5878-76-62 03:00:00 Test Item Value Reference Range Interpretation Comments Hct (test code = Hct) 23.1 36.0-48.0 [facility] HospitalMbtqsltHAGGSOGDLH5676-86-98 03:00:00 Test Item Value Reference Range Interpretation Comments Hgb (test code = Hgb) 7.6 12.0-16.0 [facility] HospitalQoixhrsXRPCJPNWDH2870-83-50 03:00:00 Test Item Value Reference Range Interpretation Comments Hct (test code = Hct) 23.1 36.0-48.0 [facility] HospitalHpptsewUOCUOIFQTD9030-74-05 03:00:00 Test Item Value Reference Range Interpretation Comments Hgb (test code = Hgb) 7.6 12.0-16.0 [facility] HospitalVpgvpjqOGANDVTFOI9365-81-68 03:00:00 Test Item Value Reference Range Interpretation Comments Hct (test code = Hct) 23.1 36.0-48.0 [facility] HospitalXnrxuahYMBAXYHYJG2976-88-00 03:00:00 Test Item Value Reference Range Interpretation Comments Hgb (test code = Hgb) 7.6 12.0-16.0 [facility] HospitalGrfeolwLTOFWDRKSX2180-96-81 03:00:00 Test Item Value Reference Range Interpretation Comments Hct (test code = Hct) 23.1 36.0-48.0 [facility] HospitalDzobbheUOOPOUAGUT6551-52-79 03:00:00 Test Item Value Reference Range Interpretation Comments Hgb (test code = Hgb) 7.6 12.0-16.0 [facility] HospitalLnrljyyMHIOUQOZHR5587-14-54 03:00:00 Test Item Value Reference Range Interpretation Comments Hct (test code = Hct) 23.1 36.0-48.0 [facility] HospitalXlxoaovDJPSVIECPW5757-79-46 03:00:00 Test Item Value Reference Range Interpretation Comments Hgb (test code = Hgb) 7.6 12.0-16.0 [facility]GnwgouiESQDETLQPW3663-97-45 03:00:00 Test Item Value Reference Range Interpretation Comments Hct (test code = Hct) 23.1 36.0-48.0 [facility]oniaGfoxcjuDQVZPDGHEB0648-70-42 03:00:00 Test Item Value Reference Range Interpretation Comments Hgb (test code = Hgb) 7.6 12.0-16.0 [facility] HospitalBxuyqpbTLXZGPKUIL8016-96-33 03:00:00 Test Item Value Reference Range Interpretation Comments Hct (test code = Hct) 23.1 36.0-48.0 [facility] HospitalYzeimhnMFCDBQFJIH8343-24-18 03:00:00 Test Item Value Reference Range Interpretation Comments Hgb (test code = Hgb) 7.6 12.0-16.0 [facility] HospitalDhbjnzhYWEDULCFEV3886-87-77 03:00:00 Test Item Value Reference Range Interpretation Comments Hct (test code = Hct) 23.1 36.0-48.0 [facility] HospitalMemfhwxSLPBWNVOAH5493-84-08 03:00:00 Test Item Value Reference Range Interpretation Comments Hgb (test code = Hgb) 7.6 12.0-16.0 [facility] HospitalKvpvkcwXSANZOCSTQ8231-85-38 03:00:00 Test Item Value Reference Range Interpretation Comments Hct (test code = Hct) 23.1 36.0-48.0 [facility] CenterGrzhfilSOUSZVAIFV8413-58-01 03:00:00 Test Item Value Reference Range Interpretation Comments Hgb (test code = Hgb) 7.6 12.0-16.0 [facility]TphhnbxSBYKOPEHYG5145-14-28 03:00:00 Test Item Value Reference Range Interpretation Comments Hct (test code = Hct) 23.1 36.0-48.0 [facility] HospitalCapnzkiVFSDZOAAHQ2574-26-79 03:00:00 Test Item Value Reference Range Interpretation Comments Hgb (test code = Hgb) 7.6 12.0-16.0 [facility] HospitalZyrxqnyUGJDIAJLEF8192-55-36 03:00:00 Test Item Value Reference Range Interpretation Comments Hct (test code = Hct) 23.1 36.0-48.0 [facility] HospitalEybczkyFNOYFDFNFJ3440-12-04 03:00:00 Test Item Value Reference Range Interpretation Comments Hgb (test code = Hgb) 7.6 12.0-16.0 [place] 406462-10-24 03:00:00 Test Item Value Reference Range Interpretation Comments Hct (test code = Hct) 23.1 36.0-48.0 [facility] HospitalUmwiacbJRCYQTHHRN3392-02-21 03:00:00 Test Item Value Reference Range Interpretation Comments Hgb (test code = Hgb) 7.6 12.0-16.0 [place] 406462-10-24 03:00:00 Test Item Value Reference Range Interpretation Comments Hct (test code = Hct) 23.1 36.0-48.0 [place] 406462-10-24 03:00:00 Test Item Value Reference Range Interpretation Comments Hgb (test code = Hgb) 7.6 12.0-16.0 [place] 406462-10-24 03:00:00 Test Item Value Reference Range Interpretation Comments Hct (test code = Hct) 23.1 36.0-48.0 [facility] HospitalQiwrckaBGSJPXZZRZ6466-07-39 03:00:00 Test Item Value Reference Range Interpretation Comments Hgb (test code = Hgb) 7.6 12.0-16.0 [place] 406462-10-24 03:00:00 Test Item Value Reference Range Interpretation Comments Hct (test code = Hct) 23.1 36.0-48.0 [facility] HospitalJfwmhmuLGUQXLQNYL5405-41-85 03:00:00 Test Item Value Reference Range Interpretation Comments Hgb (test code = Hgb) 7.6 12.0-16.0 [facility] HospitalWoklmbwHHQUFWNYQK9125-69-33 03:00:00 Test Item Value Reference Range Interpretation Comments Hct (test code = Hct) 23.1 36.0-48.0 [facility] HospitalEsbjxvvYUOVRGWIYH5073-78-44 03:00:00 Test Item Value Reference Range Interpretation Comments Hgb (test code = Hgb) 7.6 12.0-16.0 [place] 406462-10-24 03:00:00 Test Item Value Reference Range Interpretation Comments Hct (test code = Hct) 23.1 36.0-48.0 [place] 406462-10-24 03:00:00 Test Item Value Reference Range Interpretation Comments Hgb (test code = Hgb) 7.6 12.0-16.0 [place] 406462-10-24 03:00:00 Test Item Value Reference Range Interpretation Comments Hct (test code = Hct) 23.1 36.0-48.0 [facility] HospitalJjguyflGLWNPDURPY1929-38-09 03:00:00 Test Item Value Reference Range Interpretation Comments Hgb (test code = Hgb) 7.6 12.0-16.0 [facility] HospitalRsjzfghMYZZWUJNET0891-79-20 03:00:00 Test Item Value Reference Range Interpretation Comments Hct (test code = Hct) 23.1 36.0-48.0 [facility] HospitalDfxjacaVQEZOWCSQM7974-41-89 03:00:00 Test Item Value Reference Range Interpretation Comments Hgb (test code = Hgb) 7.6 12.0-16.0 [facility] HospitalUrqiqhvRONAUGSTFK5998-24-89 03:00:00 Test Item Value Reference Range Interpretation Comments Hct (test code = Hct) 23.1 36.0-48.0 [facility] HospitalNinxeyfVRJTCVFLAK7185-44-54 03:00:00 Test Item Value Reference Range Interpretation Comments Hgb (test code = Hgb) 7.6 12.0-16.0 [facility] HospitalAqdjuziMISYHUUWPB0663-11-52 03:00:00 Test Item Value Reference Range Interpretation Comments Hct (test code = Hct) 23.1 36.0-48.0 [facility] HospitalMulxcsyJPLHRVVVHQ1371-77-67 03:00:00 Test Item Value Reference Range Interpretation Comments Hgb (test code = Hgb) 7.6 12.0-16.0 [facility] HospitalVeuknebUDKKFGEAFK0259-21-85 03:00:00 Test Item Value Reference Range Interpretation Comments Hct (test code = Hct) 23.1 36.0-48.0 [facility] HospitalZcqorojHDFJNUIHEY6102-69-59 03:00:00 Test Item Value Reference Range Interpretation Comments Hgb (test code = Hgb) 7.6 12.0-16.0 [facility] HospitalJopuevvIGDUKIGRHC3760-81-77 03:00:00 Test Item Value Reference Range Interpretation Comments Hct (test code = Hct) 23.1 36.0-48.0 [facility] HospitalZioayuoLCQKAGXKDJ1113-62-69 03:00:00 Test Item Value Reference Range Interpretation Comments Hgb (test code = Hgb) 7.6 12.0-16.0 [facility] HospitalAeafuivKKSGQLXTKM2165-01-53 03:00:00 Test Item Value Reference Range Interpretation Comments Hct (test code = Hct) 23.1 36.0-48.0 [facility] HospitalSdwexzbYOATBMSOVB2916-92-36 03:00:00 Test Item Value Reference Range Interpretation Comments Hgb (test code = Hgb) 7.6 12.0-16.0 [facility] HospitalSxtqjekOGKRWVMBKL4850-98-56 03:00:00 Test Item Value Reference Range Interpretation Comments Hct (test code = Hct) 23.1 36.0-48.0 [facility] HospitalAgptoqxMLKEGTHMVZ6793-38-83 03:00:00 Test Item Value Reference Range Interpretation Comments Hgb (test code = Hgb) 7.6 12.0-16.0 [facility] HospitalElcuaetBRWDUQDVLU6696-56-66 03:00:00 Test Item Value Reference Range Interpretation Comments Hct (test code = Hct) 23.1 36.0-48.0 [facility] HospitalBhymapfPNMAJWCXJZ8158-04-66 03:00:00 Test Item Value Reference Range Interpretation Comments Hgb (test code = Hgb) 7.6 12.0-16.0 [facility] HospitalSdvimtcHIFOCWBFSD7926-72-33 03:00:00 Test Item Value Reference Range Interpretation Comments Hct (test code = Hct) 23.1 36.0-48.0 [facility] HospitalEisyiulAZAOSMYPFB7130-81-79 03:00:00 Test Item Value Reference Range Interpretation Comments Hgb (test code = Hgb) 7.6 12.0-16.0 [facility] HospitalHzzyrloQBQYZMCMDM3447-74-05 03:00:00 Test Item Value Reference Range Interpretation Comments Hct (test code = Hct) 23.1 36.0-48.0 [facility] HospitalLxkxtipPXGWHASFGR8315-40-07 03:00:00 Test Item Value Reference Range Interpretation Comments Hgb (test code = Hgb) 7.6 12.0-16.0 [facility] HospitalQgzucduIEPOLNSJWE9505-93-14 03:00:00 Test Item Value Reference Range Interpretation Comments Hct (test code = Hct) 23.1 36.0-48.0 [facility] HospitalZvcedkvDCTAKUUWOT5250-06-00 03:00:00 Test Item Value Reference Range Interpretation Comments Hgb (test code = Hgb) 7.6 12.0-16.0 [facility] HospitalKkdgnjkOVPZVDMYZM1510-50-79 03:00:00 Test Item Value Reference Range Interpretation Comments Hct (test code = Hct) 23.1 36.0-48.0 [facility] HospitalRypbshsSZFCBNODMB5709-18-09 03:00:00 Test Item Value Reference Range Interpretation Comments Hgb (test code = Hgb) 7.6 12.0-16.0 [facility] HospitalLapymehEXQRDQIYJI5609-19-26 03:00:00 Test Item Value Reference Range Interpretation Comments Hct (test code = Hct) 23.1 36.0-48.0 [facility] HospitalLjhwagbQCAWLATVXX0768-55-86 03:00:00 Test Item Value Reference Range Interpretation Comments Hgb (test code = Hgb) 7.6 12.0-16.0 [facility] HospitalSsafiocURMSJBSWLQ8897-04-89 03:00:00 Test Item Value Reference Range Interpretation Comments Hct (test code = Hct) 23.1 36.0-48.0 [facility] HospitalWdgtmgfDWFOJOKMJU7742-17-12 03:00:00 Test Item Value Reference Range Interpretation Comments Hgb (test code = Hgb) 7.6 12.0-16.0 [facility] HospitalIqadzxhCOVDRIMYUW0378-90-81 03:00:00 Test Item Value Reference Range Interpretation Comments Hct (test code = Hct) 23.1 36.0-48.0 [facility] HospitalZmlaysiGRZXJYGJFO6669-79-40 03:00:00 Test Item Value Reference Range Interpretation Comments Hgb (test code = Hgb) 7.6 12.0-16.0 [facility] HospitalVojvywcPKZRYFNGVF7163-51-25 03:00:00 Test Item Value Reference Range Interpretation Comments Hct (test code = Hct) 23.1 36.0-48.0 [facility] HospitalQzhrqiuZRGPSDZAPU8321-34-12 03:00:00 Test Item Value Reference Range Interpretation Comments Hgb (test code = Hgb) 7.6 12.0-16.0 [facility] HospitalEpeiabhEXYECYQRPV7687-75-80 03:00:00 Test Item Value Reference Range Interpretation Comments Hct (test code = Hct) 23.1 36.0-48.0 [facility] HospitalVvmanqcQRUOJYUBSV3518-81-73 03:00:00 Test Item Value Reference Range Interpretation Comments Hgb (test code = Hgb) 7.6 12.0-16.0 [place] 406462-10-24 03:00:00 Test Item Value Reference Range Interpretation Comments Hct (test code = Hct) 23.1 36.0-48.0 [facility]BlcwkhlGGJFMZRBKK4857-65-86 03:00:00 Test Item Value Reference Range Interpretation Comments Hgb (test code = Hgb) 7.6 12.0-16.0 [facility]oniaCaknuvyNLCSEAUWXK2748-22-84 03:00:00 Test Item Value Reference Range Interpretation Comments Hct (test code = Hct) 23.1 36.0-48.0 [facility]oniaZnkjmisEIHSMKBVCC4860-12-03 03:00:00 Test Item Value Reference Range Interpretation Comments Hgb (test code = Hgb) 7.6 12.0-16.0 [facility]oniaGqvepvnUEKXGIVPGP6417-09-23 03:00:00 Test Item Value Reference Range Interpretation Comments Hct (test code = Hct) 23.1 36.0-48.0 [facility] HospitalVhuhyorVNSGHHRTRB3142-49-85 03:00:00 Test Item Value Reference Range Interpretation Comments Hgb (test code = Hgb) 7.6 12.0-16.0 [facility] HospitalWqdlbzzQIBWFNXYIS3792-05-00 03:00:00 Test Item Value Reference Range Interpretation Comments Hct (test code = Hct) 23.1 36.0-48.0 [facility] HospitalUeopbgpEXHKRUZBDU6581-09-96 03:00:00 Test Item Value Reference Range Interpretation Comments Hgb (test code = Hgb) 7.6 12.0-16.0 [facility] HospitalFdikohkFMQRLEQBMG8289-20-82 03:00:00 Test Item Value Reference Range Interpretation Comments Hct (test code = Hct) 23.1 36.0-48.0 [facility] HospitalZekartvVNYZJPIHEV7658-78-19 03:00:00 Test Item Value Reference Range Interpretation Comments Hgb (test code = Hgb) 7.6 12.0-16.0 [facility] HospitalIboaxbzSPSZYBNQGH4081-72-13 03:00:00 Test Item Value Reference Range Interpretation Comments Hct (test code = Hct) 23.1 36.0-48.0 [facility] HospitalTwonaqaXCKDNASYCJ8575-35-56 03:00:00 Test Item Value Reference Range Interpretation Comments Hgb (test code = Hgb) 7.6 12.0-16.0 [facility] HospitalSikbfwnVUKLPMHKFU6316-61-20 03:00:00 Test Item Value Reference Range Interpretation Comments Hct (test code = Hct) 23.1 36.0-48.0 [place] 406462-10-24 03:00:00 Test Item Value Reference Range Interpretation Comments Hgb (test code = Hgb) 7.6 12.0-16.0 [facility] HospitalObfuiurYPUMTDIBOY4430-63-32 03:00:00 Test Item Value Reference Range Interpretation Comments Hct (test code = Hct) 23.1 36.0-48.0 [place] 406462-10-24 03:00:00 Test Item Value Reference Range Interpretation Comments Hgb (test code = Hgb) 7.6 12.0-16.0 [place] 406462-10-24 03:00:00 Test Item Value Reference Range Interpretation Comments Hct (test code = Hct) 23.1 36.0-48.0 [facility] HospitalEeuofsfBCPANZLUSL1787-19-89 03:00:00 Test Item Value Reference Range Interpretation Comments Hgb (test code = Hgb) 7.6 12.0-16.0 [facility] HospitalVubzjxyPQBRTTUZJX9373-00-92 03:00:00 Test Item Value Reference Range Interpretation Comments Hct (test code = Hct) 23.1 36.0-48.0 [facility] HospitalSjgjlevFHGWDCXDDM3016-44-49 03:00:00 Test Item Value Reference Range Interpretation Comments Hgb (test code = Hgb) 7.6 12.0-16.0 [facility] HospitalYbpcneuLYNBKBWIGH3804-10-00 03:00:00 Test Item Value Reference Range Interpretation Comments Hct (test code = Hct) 23.1 36.0-48.0 [facility] HospitalDwgfwxlFHDIAAJOXL4913-67-11 03:00:00 Test Item Value Reference Range Interpretation Comments Hgb (test code = Hgb) 7.6 12.0-16.0 [facility] HospitalKpsdtzdSKPJACKDBU8809-48-46 03:00:00 Test Item Value Reference Range Interpretation Comments Hct (test code = Hct) 23.1 36.0-48.0 [facility] HospitalJxilmkgCEZLPTWYMY2042-82-59 03:00:00 Test Item Value Reference Range Interpretation Comments Hgb (test code = Hgb) 7.6 12.0-16.0 [facility] HospitalFcunimtVUHYYKYDJA2035-50-81 03:00:00 Test Item Value Reference Range Interpretation Comments Hct (test code = Hct) 23.1 36.0-48.0 [place] 406462-10-24 03:00:00 Test Item Value Reference Range Interpretation Comments Hgb (test code = Hgb) 7.6 12.0-16.0 [facility] HospitalMebgepdXVNYYNBBJF6504-73-50 03:00:00 Test Item Value Reference Range Interpretation Comments Hct (test code = Hct) 23.1 36.0-48.0 [facility] HospitalNygcffkNVRJQDLTME4223-52-50 03:00:00 Test Item Value Reference Range Interpretation Comments Hgb (test code = Hgb) 7.6 12.0-16.0 [facility] HospitalXintfrpTZHFUEDYTE6395-05-95 03:00:00 Test Item Value Reference Range Interpretation Comments Hct (test code = Hct) 23.1 36.0-48.0 [facility] HospitalAbobeqwRJHOGYJYZA2698-94-97 03:00:00 Test Item Value Reference Range Interpretation Comments Hgb (test code = Hgb) 7.6 12.0-16.0 [facility] HospitalRspbdxzHVAZVXVQPN7329-12-43 03:00:00 Test Item Value Reference Range Interpretation Comments Hct (test code = Hct) 23.1 36.0-48.0 [facility] HospitalRqqoeeiFHDPYFVJPG3364-62-59 03:00:00 Test Item Value Reference Range Interpretation Comments Hgb (test code = Hgb) 7.6 12.0-16.0 [facility] HospitalUmcmqkoLHMOJZDDTB6529-92-86 03:00:00 Test Item Value Reference Range Interpretation Comments Hct (test code = Hct) 23.1 36.0-48.0 [facility] HospitalGetqltuBFSKXKQQRO5778-99-50 03:00:00 Test Item Value Reference Range Interpretation Comments Hgb (test code = Hgb) 7.6 12.0-16.0 [facility] HospitalQvjzbvzOEOPFCMUXP2609-04-30 03:00:00 Test Item Value Reference Range Interpretation Comments Hct (test code = Hct) 23.1 36.0-48.0 [facility] HospitalMnlhkwzAIPAJTOSHI5035-32-42 03:00:00 Test Item Value Reference Range Interpretation Comments Hgb (test code = Hgb) 7.6 12.0-16.0 [place] 406462-10-24 03:00:00 Test Item Value Reference Range Interpretation Comments Hct (test code = Hct) 23.1 36.0-48.0 [facility] HospitalSndawjuHXTDSETJCO1278-52-58 03:00:00 Test Item Value Reference Range Interpretation Comments Hgb (test code = Hgb) 7.6 12.0-16.0 [facility] HospitalFhowoidXVVTVPUPTY5092-63-26 03:00:00 Test Item Value Reference Range Interpretation Comments Hct (test code = Hct) 23.1 36.0-48.0 [facility] HospitalIptzjhxIWZKNPWZWQ6569-65-78 03:00:00 Test Item Value Reference Range Interpretation Comments Hgb (test code = Hgb) 7.6 12.0-16.0 [facility] HospitalZzouyqtADOKDABUBY3811-21-96 03:00:00 Test Item Value Reference Range Interpretation Comments Hct (test code = Hct) 23.1 36.0-48.0 [facility] HospitalHervlouJZPHLRKPSA9541-83-72 03:00:00 Test Item Value Reference Range Interpretation Comments Hgb (test code = Hgb) 7.6 12.0-16.0 [facility] HospitalMlvfahyGOKRQYGFDU3749-86-72 03:00:00 Test Item Value Reference Range Interpretation Comments Hct (test code = Hct) 23.1 36.0-48.0 [facility] HospitalCllnmmyHHELURWLDZ6563-91-57 03:00:00 Test Item Value Reference Range Interpretation Comments Hgb (test code = Hgb) 7.6 12.0-16.0 [facility] HospitalDhvcmsoEZXWKELYXX0634-70-88 03:00:00 Test Item Value Reference Range Interpretation Comments Hct (test code = Hct) 23.1 36.0-48.0 [facility] HospitalStucwuaDVXBIRMSMB1883-57-81 03:00:00 Test Item Value Reference Range Interpretation Comments Hgb (test code = Hgb) 7.6 12.0-16.0 [facility] HospitalOodvjoaUBSSPZFITQ3766-03-91 03:00:00 Test Item Value Reference Range Interpretation Comments Hct (test code = Hct) 23.1 36.0-48.0 [facility] HospitalFrfpbsmUJEDLRNZFM3316-83-24 03:00:00 Test Item Value Reference Range Interpretation Comments Hgb (test code = Hgb) 7.6 12.0-16.0 [facility] HospitalCffusjnFMTUCPKWWT9418-23-68 03:00:00 Test Item Value Reference Range Interpretation Comments Hct (test code = Hct) 23.1 36.0-48.0 [facility] HospitalUprmqnePHHSHEOELC2255-06-47 03:00:00 Test Item Value Reference Range Interpretation Comments Hgb (test code = Hgb) 7.6 12.0-16.0 [facility] HospitalAzqqsvwCTXSZRGVNE7249-04-35 03:00:00 Test Item Value Reference Range Interpretation Comments Hct (test code = Hct) 23.1 36.0-48.0 [facility] HospitalPlzlwznIYCGEQHTDI3689-00-60 03:00:00 Test Item Value Reference Range Interpretation Comments Hgb (test code = Hgb) 7.6 12.0-16.0 [facility] HospitalTzminhoUSZXPBLSJP6766-05-22 03:00:00 Test Item Value Reference Range Interpretation Comments Hct (test code = Hct) 23.1 36.0-48.0 [facility] HospitalLegfamsEDFSSZIFCH8693-33-67 03:00:00 Test Item Value Reference Range Interpretation Comments Hgb (test code = Hgb) 7.6 12.0-16.0 [facility] HospitalAfrigodGKYSUUAHQS4042-91-60 03:00:00 Test Item Value Reference Range Interpretation Comments Hct (test code = Hct) 23.1 36.0-48.0 [facility] HospitalSvuueefBBHHXDQAPB4856-50-16 03:00:00 Test Item Value Reference Range Interpretation Comments Hgb (test code = Hgb) 7.6 12.0-16.0 [facility] HospitalHzceaafLMQLQOALMH1654-50-52 03:00:00 Test Item Value Reference Range Interpretation Comments Hct (test code = Hct) 23.1 36.0-48.0 [facility] HospitalJfzwsjcYBZNEICSIJ8453-42-12 03:00:00 Test Item Value Reference Range Interpretation Comments Hgb (test code = Hgb) 7.6 12.0-16.0 [facility] HospitalCiwwqdgFJPKRPAKOB7497-66-40 03:00:00 Test Item Value Reference Range Interpretation Comments Hct (test code = Hct) 23.1 36.0-48.0 [facility] HospitalBaptiojPWTGLTYBFM4431-80-39 03:00:00 Test Item Value Reference Range Interpretation Comments Hgb (test code = Hgb) 7.6 12.0-16.0 [facility] HospitalMxgmifhRITBRNJVFK5245-26-94 03:00:00 Test Item Value Reference Range Interpretation Comments Hct (test code = Hct) 23.1 36.0-48.0 [facility] HospitalDwuaxfgJCOAJBQZIU4428-61-42 03:00:00 Test Item Value Reference Range Interpretation Comments Hgb (test code = Hgb) 7.6 12.0-16.0 [facility] HospitalVxyhgmaTHUCPHAPZV5673-86-59 03:00:00 Test Item Value Reference Range Interpretation Comments Hct (test code = Hct) 23.1 36.0-48.0 [facility] HospitalLbcsgbqHACXQTIEKW1023-96-29 03:00:00 Test Item Value Reference Range Interpretation Comments Hgb (test code = Hgb) 7.6 12.0-16.0 [facility] HospitalBgpbmnfFGOPJTXUCQ4539-66-81 03:00:00 Test Item Value Reference Range Interpretation Comments Hct (test code = Hct) 23.1 36.0-48.0 [facility] HospitalQtmcwdnYVMKUAZYOP9440-03-66 03:00:00 Test Item Value Reference Range Interpretation Comments Hgb (test code = Hgb) 7.6 12.0-16.0 [facility] HospitalJxwttmlMWDLDZFTIC5683-99-57 03:00:00 Test Item Value Reference Range Interpretation Comments Hct (test code = Hct) 23.1 36.0-48.0 [facility] HospitalBcoywonWESZCLJNBO0404-23-48 03:00:00 Test Item Value Reference Range Interpretation Comments Hgb (test code = Hgb) 7.6 12.0-16.0 [facility] HospitalZkxlmlzHOLJFLWSMX9015-27-29 03:00:00 Test Item Value Reference Range Interpretation Comments Hct (test code = Hct) 23.1 36.0-48.0 [facility] HospitalKgimqmnXIXWVYMMXO2548-23-98 03:00:00 Test Item Value Reference Range Interpretation Comments Hgb (test code = Hgb) 7.6 12.0-16.0 [facility] HospitalExcubvgOYMOTKEXTF6641-62-80 03:00:00 Test Item Value Reference Range Interpretation Comments Hct (test code = Hct) 23.1 36.0-48.0 [facility] HospitalEycclerUGBPQYGDKP1776-65-40 03:00:00 Test Item Value Reference Range Interpretation Comments Hgb (test code = Hgb) 7.6 12.0-16.0 [facility] HospitalQwmcnwiGVCJAASXUW2176-05-62 03:00:00 Test Item Value Reference Range Interpretation Comments Hct (test code = Hct) 23.1 36.0-48.0 [facility] HospitalZfgekamMQKSGTNEYW8693-02-97 03:00:00 Test Item Value Reference Range Interpretation Comments Hgb (test code = Hgb) 7.6 12.0-16.0 [facility]JinnrhjLINGKVROCX2356-78-34 03:00:00 Test Item Value Reference Range Interpretation Comments Hct (test code = Hct) 23.1 36.0-48.0 [facility]: Ljsld3963-11-33 15:20:00 Test Item Value Reference Range Interpretation Comments Culture: Blood (test code No Growth At 5 Days = Culture: Blood) [facility]: Bzcyo7857-15-39 15:20:00 Test Item Value Reference Range Interpretation Comments Culture: Blood (test code No Growth At 5 Days = Culture: Blood) [facility]: Eyptw4929-20-72 15:20:00 Test Item Value Reference Range Interpretation Comments Culture: Blood (test code No Growth At 5 Days = Culture: Blood) [facility]: Trgxa1128-40-43 15:20:00 Test Item Value Reference Range Interpretation Comments Culture: Blood (test code No Growth At 5 Days = Culture: Blood) [facility]: Njcxk8312-33-39 15:20:00 Test Item Value Reference Range Interpretation Comments Culture: Blood (test code No Growth At 5 Days = Culture: Blood) [facility]: Lhdgk9313-90-79 15:20:00 Test Item Value Reference Range Interpretation Comments Culture: Blood (test code No Growth At 5 Days = Culture: Blood) [facility]: Iqcmh7786-96-91 15:20:00 Test Item Value Reference Range Interpretation Comments Culture: Blood (test code No Growth At 5 Days = Culture: Blood) [facility]: Ppuxf9749-14-83 15:20:00 Test Item Value Reference Range Interpretation Comments Culture: Blood (test code No Growth At 5 Days = Culture: Blood) [facility]: Zcyzt8651-22-58 15:20:00 Test Item Value Reference Range Interpretation Comments Culture: Blood (test code No Growth At 5 Days = Culture: Blood) [facility]: Vqgoj5121-94-19 15:20:00 Test Item Value Reference Range Interpretation Comments Culture: Blood (test code No Growth At 5 Days = Culture: Blood) [facility]: Kfirt0807-46-35 15:20:00 Test Item Value Reference Range Interpretation Comments Culture: Blood (test code No Growth At 5 Days = [facility]: [facility]) [facility] Ispzi0459-47-81 15:20:00 Test Item Value Reference Range Interpretation Comments Culture: Blood (test code No Growth At 5 Days = Culture: Blood) [facility] Qrvoc8943-76-64 15:20:00 Test Item Value Reference Range Interpretation Comments Culture: Blood (test code No Growth At 5 Days = Culture: Blood) [facility] Jwgmx3698-83-36 15:20:00 Test Item Value Reference Range Interpretation Comments Culture: Blood (test code No Growth At 5 Days = Culture: Blood) [facility] [id number] 15:20:00 Test Item Value Reference Range Interpretation Comments Culture: Blood (test code No Growth At 5 Days = Culture: Blood) [facility]: Limab4055-93-07 15:20:00 Test Item Value Reference Range Interpretation Comments Culture: Blood (test code No Growth At 5 Days = Culture: Blood) [facility]: Vfiin0362-55-93 15:20:00 Test Item Value Reference Range Interpretation Comments Culture: Blood (test code No Growth At 5 Days = Culture: Blood) [facility]: [id number] 15:20:00 Test Item Value Reference Range Interpretation Comments Culture: Blood (test code No Growth At 5 Days = Culture: Blood) [facility]: Adjle3857-06-21 15:20:00 Test Item Value Reference Range Interpretation Comments Culture: Blood (test code No Growth At 5 Days = Culture: Blood) [facility]: [id number] 15:20:00 Test Item Value Reference Range Interpretation Comments Culture: Blood (test code No Growth At 5 Days = Culture: Blood) [facility]: Epxyw8756-17-98 15:20:00 Test Item Value Reference Range Interpretation Comments Culture: Blood (test code No Growth At 5 Days = Culture: Blood) [facility] [facility]: [id number] 15:20:00 Test Item Value Reference Range Interpretation Comments Culture: Blood (test code No Growth At 5 Days = Culture: Blood) [facility] [id number] 15:20:00 Test Item Value Reference Range Interpretation Comments Culture: Blood (test code No Growth At 5 Days = Culture: Blood) [facility] [id number] 15:20:00 Test Item Value Reference Range Interpretation Comments Culture: Blood (test code No Growth At 5 Days = Culture: Blood) [facility]2022-10-23 09:39:00 Test Item Value Reference Range Interpretation Comments Glucose Lvl (test code = Glucose Lvl) 150 70-99 [place] 250692-10-23 09:39:00 Test Item Value Reference Range Interpretation Comments BUN (test code = BUN) 9 7-22 [place] 250692-10-23 09:39:00 Test Item Value Reference Range Interpretation Comments Creatinine Lvl (test code = Creatinine 0.42 0.50-1.40 Lvl) [facility]2022-10-23 09:39:00 Test Item Value Reference Range Interpretation Comments Sodium Lvl (test code = Sodium Lvl) 134 135-145 [place] 250692-10-23 09:39:00 Test Item Value Reference Range Interpretation Comments Potassium Lvl (test code = Potassium 3.3 3.5-5.1 Lvl) [facility]2022-10-23 09:39:00 Test Item Value Reference Range Interpretation Comments Chloride Lvl (test code = Chloride Lvl) 102 95-109 [facility]2022-10-23 09:39:00 Test Item Value Reference Range Interpretation Comments CO2 (test code = CO2) 25 24-32 [facility]2022-10-23 09:39:00 Test Item Value Reference Range Interpretation Comments Calcium Lvl (test code = Calcium Lvl) 8.7 8.5-10.5 [place] 250692-10-23 09:39:00 Test Item Value Reference Range Interpretation Comments AGAP (test code = AGAP) 10.3 10.0-20.0 [place] 250692-10-23 09:39:00 Test Item Value Reference Range Interpretation Comments eGFR (test code = eGFR) 116 [place] 250692-10-23 09:39:00 Test Item Value Reference Range Interpretation Comments Magnesium Lvl (test code = Magnesium 1.9 1.8-2.4 Lvl) [place] 250692-10-23 09:39:00 Test Item Value Reference Range Interpretation Comments Phosphorus (test code = Phosphorus) 2.6 2.5-4.5 [place] 406462-10-23 09:39:00 Test Item Value Reference Range Interpretation Comments Segs (test code = Segs) 68.1 45.0-75.0 [place] [address]-10-23 09:39:00 Test Item Value Reference Range Interpretation Comments Lymphocytes (test code = Lymphocytes) 20.4 20.0-40.0 [place] 406462-10-23 09:39:00 Test Item Value Reference Range Interpretation Comments Monocytes (test code = Monocytes) 6.7 2.0-12.0 [place] [address]-10-23 09:39:00 Test Item Value Reference Range Interpretation Comments Eosinophils (test code = Eosinophils) 4.1 <=4.0 [place] 406462-10-23 09:39:00 Test Item Value Reference Range Interpretation Comments Basophils (test code = Basophils) 0.7 <=1.0 [place] [address]-10-23 09:39:00 Test Item Value Reference Range Interpretation Comments Neutrophils # (test code = Neutrophils 6.7 1.5-8.1 #) [facility]WD[facility]RR[facility]908[facility]21-02 09:39:00 Test Item Value Reference Range Interpretation Comments Lymphocytes # (test code = Lymphocytes 2.0 1.0-5.5 #) [place] 406462-10-23 09:39:00 Test Item Value Reference Range Interpretation Comments Monocytes # (test code = Monocytes #) 0.7 <=0.8 [place] 406462-10-23 09:39:00 Test Item Value Reference Range Interpretation Comments Eosinophils # (test code = Eosinophils 0.4 <=0.5 #) [place] [address]-10-23 09:39:00 Test Item Value Reference Range Interpretation Comments Basophils # (test code = Basophils #) 0.1 <=0.2 [place] [address]-10-23 09:39:00 Test Item Value Reference Range Interpretation Comments WBC (test code = WBC) 9.9 3.7-10.4 [place] 406462-10-23 09:39:00 Test Item Value Reference Range Interpretation Comments RBC (test code = RBC) 3.05 4.20-5.40 [facility] HospitalRmparhrGSFXCFQYCG6217-96-66 09:39:00 Test Item Value Reference Range Interpretation Comments Hgb (test code = Hgb) 8.5 12.0-16.0 [place] 406462-10-23 09:39:00 Test Item Value Reference Range Interpretation Comments Hct (test code = Hct) 25.6 36.0-48.0 [facility] HospitalQdslturJBLTBUSKCI9998-49-07 09:39:00 Test Item Value Reference Range Interpretation Comments MCV (test code = MCV) 83.9 80.0-98.0 [facility] HospitalGdnmskaNZKILMBJQN3193-88-56 09:39:00 Test Item Value Reference Range Interpretation Comments MCH (test code = MCH) 27.9 pg 27.0-31.0 [facility] HospitalSjgwtggCNJNABAIYG7836-99-25 09:39:00 Test Item Value Reference Range Interpretation Comments MCHC (test code = MCHC) 33.2 32.0-36.0 [facility] HospitalPpireikSPYBMFLIUU7702-40-29 09:39:00 Test Item Value Reference Range Interpretation Comments RDW (test code = RDW) 12.6 11.5-14.5 [facility] HospitalAmbfiypMBJIQUUZQW7387-37-47 09:39:00 Test Item Value Reference Range Interpretation Comments Platelet (test code = Platelet) 358 133-450 [facility] HospitalAfmlrmeKKJVKGNRMF2043-91-41 09:39:00 Test Item Value Reference Range Interpretation Comments MPV (test code = MPV) 8.1 7.4-10.4 [facility]2022-10-23 09:39:00 Test Item Value Reference Range Interpretation Comments Ca Ion WB (test code = Ca Ion WB) 1.11 1.05-1.25 [facility]2022-10-23 09:39:00 Test Item Value Reference Range Interpretation Comments Ca Ion at pH 7.4 WB (test code = Ca Ion 1.13 1.05-1.25 at pH 7.4 WB) [facility]2022-10-23 09:39:00 Test Item Value Reference Range Interpretation Comments Glucose Lvl (test code = Glucose Lvl) 150 70-99 [facility]2022-10-23 09:39:00 Test Item Value Reference Range Interpretation Comments BUN (test code = BUN) 9 7-22 [place] 250692-10-23 09:39:00 Test Item Value Reference Range Interpretation Comments Creatinine Lvl (test code = Creatinine 0.42 0.50-1.40 Lvl) [place] 250692-10-23 09:39:00 Test Item Value Reference Range Interpretation Comments Sodium Lvl (test code = Sodium Lvl) 134 135-145 [place] 250692-10-23 09:39:00 Test Item Value Reference Range Interpretation Comments Potassium Lvl (test code = Potassium 3.3 3.5-5.1 Lvl) [place] 250692-10-23 09:39:00 Test Item Value Reference Range Interpretation Comments Chloride Lvl (test code = Chloride Lvl) 102 95-109 [place] 250692-10-23 09:39:00 Test Item Value Reference Range Interpretation Comments CO2 (test code = CO2) 25 24-32 [place] 250692-10-23 09:39:00 Test Item Value Reference Range Interpretation Comments Calcium Lvl (test code = Calcium Lvl) 8.7 8.5-10.5 [place] 250692-10-23 09:39:00 Test Item Value Reference Range Interpretation Comments AGAP (test code = AGAP) 10.3 10.0-20.0 [place] 250692-10-23 09:39:00 Test Item Value Reference Range Interpretation Comments eGFR (test code = eGFR) 116 [place] 250692-10-23 09:39:00 Test Item Value Reference Range Interpretation Comments Magnesium Lvl (test code = Magnesium 1.9 1.8-2.4 Lvl) [place] 250692-10-23 09:39:00 Test Item Value Reference Range Interpretation Comments Phosphorus (test code = Phosphorus) 2.6 2.5-4.5 [place] 406462-10-23 09:39:00 Test Item Value Reference Range Interpretation Comments Segs (test code = Segs) 68.1 45.0-75.0 [place] [address]-10-23 09:39:00 Test Item Value Reference Range Interpretation Comments Lymphocytes (test code = Lymphocytes) 20.4 20.0-40.0 [place] [address]-10-23 09:39:00 Test Item Value Reference Range Interpretation Comments Monocytes (test code = Monocytes) 6.7 2.0-12.0 [place] [address]-10-23 09:39:00 Test Item Value Reference Range Interpretation Comments Eosinophils (test code = 4.1 See_Comment [A utomated message] The Eosinophils) system which ge nerated this result tra nsmitted reference range : <=4.0. The reference r kyle was not used to int erpret this result as normal/abnormal . [place] [address]-10-23 09:39:00 Test Item Value Reference Range Interpretation Comments Basophils (test code = 0.7 See_Comment [Aut omated message] The Basophils) system which ge nerated this result tra nsmitted reference range : <=1.0. The reference r kyle was not used to int erpret this result as normal/abnormal . [address]10-23 09:39:00 Test Item Value Reference Range Interpretation Comments Neutrophils # (test code = Neutrophils 6.7 1.5-8.1 #) [place] [address]-10-23 09:39:00 Test Item Value Reference Range Interpretation Comments Lymphocytes # (test code = Lymphocytes 2.0 1.0-5.5 #) [place] [address]-10-23 09:39:00 Test Item Value Reference Range Interpretation Comments Monocytes # (test code 0.7 See_Comment [Aut omated message] The = Monocytes #) system which generated this result tra nsmitted reference range : <=0.8. The reference r kyle was not used to int erpret this result as normal/abnormal . [place] [address]-10-23 09:39:00 Test Item Value Reference Range Interpretation Comments Eosinophils # (test code 0.4 See_Comment [A utomated message] The = Eosinophils #) system whic h generated this result tra nsmitted reference range : <=0.5. The reference r kyle was not used to int erpret this result as normal/abnormal . [place] [address]-10-23 09:39:00 Test Item Value Reference Range Interpretation Comments Basophils # (test code 0.1 See_Comment [Aut omated message] The = Basophils #) system which generated this result tra nsmitted reference range : <=0.2. The reference r kyle was not used to int erpret this result as normal/abnormal . [facility] HospitalNrigmddQXQFSJPKPC9703-20-13 09:39:00 Test Item Value Reference Range Interpretation Comments WBC (test code = WBC) 9.9 3.7-10.4 [facility] HospitalOrgvyrlGLDYQEAPEX7021-85-45 09:39:00 Test Item Value Reference Range Interpretation Comments RBC (test code = RBC) 3.05 4.20-5.40 [facility] HospitalLfugghvXYEVSJDLEH3186-40-27 09:39:00 Test Item Value Reference Range Interpretation Comments Hgb (test code = Hgb) 8.5 12.0-16.0 [facility] HospitalBbpbusyCZTOVNBAWH0185-84-93 09:39:00 Test Item Value Reference Range Interpretation Comments Hct (test code = Hct) 25.6 36.0-48.0 [facility] HospitalQymqehdLDLKNAITMM2466-66-01 09:39:00 Test Item Value Reference Range Interpretation Comments MCV (test code = MCV) 83.9 80.0-98.0 [facility] HospitalHrfuuokBDRIODAVWQ9359-42-56 09:39:00 Test Item Value Reference Range Interpretation Comments MCH (test code = MCH) 27.9 pg 27.0-31.0 [facility] HospitalQgawibuLMYJVEBTTJ6741-80-22 09:39:00 Test Item Value Reference Range Interpretation Comments MCHC (test code = MCHC) 33.2 32.0-36.0 [facility] HospitalJtazfdcIPIHHSOIYH5964-96-40 09:39:00 Test Item Value Reference Range Interpretation Comments RDW (test code = RDW) 12.6 11.5-14.5 [facility] HospitalCvrfhspKYJVUVPFCT3017-05-23 09:39:00 Test Item Value Reference Range Interpretation Comments Platelet (test code = Platelet) 358 133-450 [facility] HospitalNzphhplVQNXGOETSN7821-48-77 09:39:00 Test Item Value Reference Range Interpretation Comments MPV (test code = MPV) 8.1 7.4-10.4 [facility] CenterPARATHYROID LRGLQPU8395-94-28 09:39:00 Test Item Value Reference Range Interpretation Comments Ca Ion WB (test code = Ca Ion WB) 1.11 1.05-1.25 [facility] [id number] 09:39:00 Test Item Value Reference Range Interpretation Comments Ca Ion at pH 7.4 WB (test code = Ca Ion 1.13 1.05-1.25 at pH 7.4 WB) [place] 250692-10-23 09:39:00 Test Item Value Reference Range Interpretation Comments Glucose Lvl (test code = Glucose Lvl) 150 70-99 [place] 250692-10-23 09:39:00 Test Item Value Reference Range Interpretation Comments BUN (test code = BUN) 9 7-22 [place] 250692-10-23 09:39:00 Test Item Value Reference Range Interpretation Comments Creatinine Lvl (test code = Creatinine 0.42 0.50-1.40 Lvl) [place] 250692-10-23 09:39:00 Test Item Value Reference Range Interpretation Comments Sodium Lvl (test code = Sodium Lvl) 134 135-145 [place] 250692-10-23 09:39:00 Test Item Value Reference Range Interpretation Comments Potassium Lvl (test code = Potassium 3.3 3.5-5.1 Lvl) [place] 250692-10-23 09:39:00 Test Item Value Reference Range Interpretation Comments Chloride Lvl (test code = Chloride Lvl) 102 95-109 [place] 250692-10-23 09:39:00 Test Item Value Reference Range Interpretation Comments CO2 (test code = CO2) 25 24-32 [place] 250692-10-23 09:39:00 Test Item Value Reference Range Interpretation Comments Calcium Lvl (test code = Calcium Lvl) 8.7 8.5-10.5 [place] 250692-10-23 09:39:00 Test Item Value Reference Range Interpretation Comments AGAP (test code = AGAP) 10.3 10.0-20.0 [place] 250692-10-23 09:39:00 Test Item Value Reference Range Interpretation Comments eGFR (test code = eGFR) 116 [facility]2022-10-23 09:39:00 Test Item Value Reference Range Interpretation Comments Magnesium Lvl (test code = Magnesium 1.9 1.8-2.4 Lvl) [place] 250692-10-23 09:39:00 Test Item Value Reference Range Interpretation Comments Phosphorus (test code = Phosphorus) 2.6 2.5-4.5 [facility]XVQLPQXIHO5255-81-68 09:39:00 Test Item Value Reference Range Interpretation Comments Segs (test code = Segs) 68.1 45.0-75.0 [place] [address]-10-23 09:39:00 Test Item Value Reference Range Interpretation Comments Lymphocytes (test code = Lymphocytes) 20.4 20.0-40.0 [place] [address]-10-23 09:39:00 Test Item Value Reference Range Interpretation Comments Monocytes (test code = Monocytes) 6.7 2.0-12.0 [place] [address]-10-23 09:39:00 Test Item Value Reference Range Interpretation Comments Eosinophils (test code = 4.1 See_Comment [A utomated message] The Eosinophils) system which ge nerated this result tra nsmitted reference range : <=4.0. The reference r kyle was not used to int erpret this result as normal/abnormal . [place] [address]-10-23 09:39:00 Test Item Value Reference Range Interpretation Comments Basophils (test code = 0.7 See_Comment [Aut omated message] The Basophils) system which ge nerated this result tra nsmitted reference range : <=1.0. The reference r kyle was not used to int erpret this result as normal/abnormal . [place] [address]-10-23 09:39:00 Test Item Value Reference Range Interpretation Comments Neutrophils # (test code = Neutrophils 6.7 1.5-8.1 #) [place] [address]-10-23 09:39:00 Test Item Value Reference Range Interpretation Comments Lymphocytes # (test code = Lymphocytes 2.0 1.0-5.5 #) [place] [address]-10-23 09:39:00 Test Item Value Reference Range Interpretation Comments Monocytes # (test code 0.7 See_Comment [Aut omated message] The = Monocytes #) system which generated this result tra nsmitted reference range : <=0.8. The reference r kyle was not used to int erpret this result as normal/abnormal . [place] [address]-10-23 09:39:00 Test Item Value Reference Range Interpretation Comments Eosinophils # (test code 0.4 See_Comment [A utomated message] The = Eosinophils #) system whic h generated this result tra nsmitted reference range : <=0.5. The reference r kyle was not used to int erpret this result as normal/abnormal . [facility] HospitalJhnicqoJOENCRAUBU9247-05-91 09:39:00 Test Item Value Reference Range Interpretation Comments Basophils # (test code 0.1 See_Comment [Aut omated message] The = Basophils #) system which generated this result tra nsmitted reference range : <=0.2. The reference r kyle was not used to int erpret this result as normal/abnormal . [facility] HospitalDcrccwmQRIVRIFXMF3153-67-03 09:39:00 Test Item Value Reference Range Interpretation Comments WBC (test code = WBC) 9.9 3.7-10.4 [place] 406462-10-23 09:39:00 Test Item Value Reference Range Interpretation Comments RBC (test code = RBC) 3.05 4.20-5.40 [place] 406462-10-23 09:39:00 Test Item Value Reference Range Interpretation Comments Hgb (test code = Hgb) 8.5 12.0-16.0 [place] 406462-10-23 09:39:00 Test Item Value Reference Range Interpretation Comments Hct (test code = Hct) 25.6 36.0-48.0 [facility] HospitalAaggrxrLVPSTRIIWK4513-22-54 09:39:00 Test Item Value Reference Range Interpretation Comments MCV (test code = MCV) 83.9 80.0-98.0 [place] 406462-10-23 09:39:00 Test Item Value Reference Range Interpretation Comments MCH (test code = MCH) 27.9 pg 27.0-31.0 [facility] HospitalExxophjZPLGKEMJNV7088-47-73 09:39:00 Test Item Value Reference Range Interpretation Comments MCHC (test code = MCHC) 33.2 32.0-36.0 [place] 406462-10-23 09:39:00 Test Item Value Reference Range Interpretation Comments RDW (test code = RDW) 12.6 11.5-14.5 [facility] HospitalPehnciiERPJADCUIN5644-59-51 09:39:00 Test Item Value Reference Range Interpretation Comments Platelet (test code = Platelet) 358 133-450 [facility] HospitalYvbculbUPOIYXDGJX5865-09-63 09:39:00 Test Item Value Reference Range Interpretation Comments MPV (test code = MPV) 8.1 7.4-10.4 [place] 118662-10-23 09:39:00 Test Item Value Reference Range Interpretation Comments Ca Ion WB (test code = Ca Ion WB) 1.11 1.05-1.25 [place] 118662-10-23 09:39:00 Test Item Value Reference Range Interpretation Comments Ca Ion at pH 7.4 WB (test code = Ca Ion 1.13 1.05-1.25 at pH 7.4 WB) [facility]2022-10-23 09:39:00 Test Item Value Reference Range Interpretation Comments Glucose Lvl (test code = Glucose Lvl) 150 70-99 [place] 250692-10-23 09:39:00 Test Item Value Reference Range Interpretation Comments BUN (test code = BUN) 9 7-22 [place] 250692-10-23 09:39:00 Test Item Value Reference Range Interpretation Comments Creatinine Lvl (test code = Creatinine 0.42 0.50-1.40 Lvl) [facility]2022-10-23 09:39:00 Test Item Value Reference Range Interpretation Comments Sodium Lvl (test code = Sodium Lvl) 134 135-145 [place] 250692-10-23 09:39:00 Test Item Value Reference Range Interpretation Comments Potassium Lvl (test code = Potassium 3.3 3.5-5.1 Lvl) [place] 250692-10-23 09:39:00 Test Item Value Reference Range Interpretation Comments Chloride Lvl (test code = Chloride Lvl) 102 95-109 [place] 250692-10-23 09:39:00 Test Item Value Reference Range Interpretation Comments CO2 (test code = CO2) 25 24-32 [place] 250692-10-23 09:39:00 Test Item Value Reference Range Interpretation Comments Calcium Lvl (test code = Calcium Lvl) 8.7 8.5-10.5 [place] 250692-10-23 09:39:00 Test Item Value Reference Range Interpretation Comments AGAP (test code = AGAP) 10.3 10.0-20.0 [place] 250692-10-23 09:39:00 Test Item Value Reference Range Interpretation Comments eGFR (test code = eGFR) 116 [place] 250692-10-23 09:39:00 Test Item Value Reference Range Interpretation Comments Magnesium Lvl (test code = Magnesium 1.9 1.8-2.4 Lvl) [place] 250692-10-23 09:39:00 Test Item Value Reference Range Interpretation Comments Phosphorus (test code = Phosphorus) 2.6 2.5-4.5 [place] [address]-10-23 09:39:00 Test Item Value Reference Range Interpretation Comments Segs (test code = Segs) 68.1 45.0-75.0 [address]10-23 09:39:00 Test Item Value Reference Range Interpretation Comments Lymphocytes (test code = Lymphocytes) 20.4 20.0-40.0 [place] [address]-10-23 09:39:00 Test Item Value Reference Range Interpretation Comments Monocytes (test code = Monocytes) 6.7 2.0-12.0 [place] [address]-10-23 09:39:00 Test Item Value Reference Range Interpretation Comments Eosinophils (test code = 4.1 See_Comment [A utomated message] The Eosinophils) system which ge nerated this result tra nsmitted reference range : <=4.0. The reference r kyle was not used to int erpret this result as normal/abnormal . [place] [address]-10-23 09:39:00 Test Item Value Reference Range Interpretation Comments Basophils (test code = 0.7 See_Comment [Aut omated message] The Basophils) system which ge nerated this result tra nsmitted reference range : <=1.0. The reference r kyle was not used to int erpret this result as normal/abnormal . [place] 406462-10-23 09:39:00 Test Item Value Reference Range Interpretation Comments Neutrophils # (test code = Neutrophils 6.7 1.5-8.1 #) [place] [address]-10-23 09:39:00 Test Item Value Reference Range Interpretation Comments Lymphocytes # (test code = Lymphocytes 2.0 1.0-5.5 #) [place] [address]-10-23 09:39:00 Test Item Value Reference Range Interpretation Comments Monocytes # (test code 0.7 See_Comment [Aut omated message] The = Monocytes #) system which generated this result tra nsmitted reference range : <=0.8. The reference r kyle was not used to int erpret this result as normal/abnormal . [facility] HospitalSltijtlAIKOBTWXYC6288-83-26 09:39:00 Test Item Value Reference Range Interpretation Comments Eosinophils # (test code 0.4 See_Comment [A utomated message] The = Eosinophils #) system whic h generated this result tra nsmitted reference range : <=0.5. The reference r kyle was not used to int erpret this result as normal/abnormal . [facility] HospitalGlziyweTKJKYTNJMX8962-44-90 09:39:00 Test Item Value Reference Range Interpretation Comments Basophils # (test code 0.1 See_Comment [Aut omated message] The = Basophils #) system which generated this result tra nsmitted reference range : <=0.2. The reference r kyle was not used to int erpret this result as normal/abnormal . [facility] HospitalZtmvfejVDGDKBTVMZ1972-74-56 09:39:00 Test Item Value Reference Range Interpretation Comments WBC (test code = WBC) 9.9 3.7-10.4 [place] 406462-10-23 09:39:00 Test Item Value Reference Range Interpretation Comments RBC (test code = RBC) 3.05 4.20-5.40 [place] 406462-10-23 09:39:00 Test Item Value Reference Range Interpretation Comments Hgb (test code = Hgb) 8.5 12.0-16.0 [facility] HospitalDoopsflWMAXCEURWI3052-29-15 09:39:00 Test Item Value Reference Range Interpretation Comments Hct (test code = Hct) 25.6 36.0-48.0 [place] 406462-10-23 09:39:00 Test Item Value Reference Range Interpretation Comments MCV (test code = MCV) 83.9 80.0-98.0 [place] [address]-10-23 09:39:00 Test Item Value Reference Range Interpretation Comments MCH (test code = MCH) 27.9 pg 27.0-31.0 [place] 406462-10-23 09:39:00 Test Item Value Reference Range Interpretation Comments MCHC (test code = MCHC) 33.2 32.0-36.0 [place] 406462-10-23 09:39:00 Test Item Value Reference Range Interpretation Comments RDW (test code = RDW) 12.6 11.5-14.5 [place] [address]-10-23 09:39:00 Test Item Value Reference Range Interpretation Comments Platelet (test code = Platelet) 358 133-450 [place] [address]-10-23 09:39:00 Test Item Value Reference Range Interpretation Comments MPV (test code = MPV) 8.1 7.4-10.4 [place] 118662-10-23 09:39:00 Test Item Value Reference Range Interpretation Comments Ca Ion WB (test code = Ca Ion WB) 1.11 1.05-1.25 [address]10-23 09:39:00 Test Item Value Reference Range Interpretation Comments Ca Ion at pH 7.4 WB (test code = Ca Ion 1.13 1.05-1.25 at pH 7.4 WB) [place] 250692-10-23 09:39:00 Test Item Value Reference Range Interpretation Comments Glucose Lvl (test code = Glucose Lvl) 150 70-99 [place] 250692-10-23 09:39:00 Test Item Value Reference Range Interpretation Comments BUN (test code = BUN) 9 7-22 [place] 250692-10-23 09:39:00 Test Item Value Reference Range Interpretation Comments Creatinine Lvl (test code = Creatinine 0.42 0.50-1.40 Lvl) [place] 250692-10-23 09:39:00 Test Item Value Reference Range Interpretation Comments Sodium Lvl (test code = Sodium Lvl) 134 135-145 [place] 250692-10-23 09:39:00 Test Item Value Reference Range Interpretation Comments Potassium Lvl (test code = Potassium 3.3 3.5-5.1 Lvl) [place] [address]-10-23 09:39:00 Test Item Value Reference Range Interpretation Comments Chloride Lvl (test code = Chloride Lvl) 102 95-109 [place] 250692-10-23 09:39:00 Test Item Value Reference Range Interpretation Comments CO2 (test code = CO2) 25 24-32 [place] 250692-10-23 09:39:00 Test Item Value Reference Range Interpretation Comments Calcium Lvl (test code = Calcium Lvl) 8.7 8.5-10.5 [place] 250692-10-23 09:39:00 Test Item Value Reference Range Interpretation Comments AGAP (test code = AGAP) 10.3 10.0-20.0 [place] 250692-10-23 09:39:00 Test Item Value Reference Range Interpretation Comments eGFR (test code = eGFR) 116 [place] 250692-10-23 09:39:00 Test Item Value Reference Range Interpretation Comments Magnesium Lvl (test code = Magnesium 1.9 1.8-2.4 Lvl) [place] [address]-10-23 09:39:00 Test Item Value Reference Range Interpretation Comments Phosphorus (test code = Phosphorus) 2.6 2.5-4.5 [place] 406462-10-23 09:39:00 Test Item Value Reference Range Interpretation Comments Segs (test code = Segs) 68.1 45.0-75.0 [place] [address]-10-23 09:39:00 Test Item Value Reference Range Interpretation Comments Lymphocytes (test code = Lymphocytes) 20.4 20.0-40.0 [place] [address]-10-23 09:39:00 Test Item Value Reference Range Interpretation Comments Monocytes (test code = Monocytes) 6.7 2.0-12.0 [place] [address]-10-23 09:39:00 Test Item Value Reference Range Interpretation Comments Eosinophils (test code = 4.1 See_Comment [A utomated message] The Eosinophils) system which ge nerated this result tra nsmitted reference range : <=4.0. The reference r kyle was not used to int erpret this result as normal/abnormal . [place] [address]-10-23 09:39:00 Test Item Value Reference Range Interpretation Comments Basophils (test code = 0.7 See_Comment [Aut omated message] The Basophils) system which ge nerated this result tra nsmitted reference range : <=1.0. The reference r kyle was not used to int erpret this result as normal/abnormal . [place] [address]-10-23 09:39:00 Test Item Value Reference Range Interpretation Comments Neutrophils # (test code = Neutrophils 6.7 1.5-8.1 #) [place] 406462-10-23 09:39:00 Test Item Value Reference Range Interpretation Comments Lymphocytes # (test code = Lymphocytes 2.0 1.0-5.5 #) [place] [address]-10-23 09:39:00 Test Item Value Reference Range Interpretation Comments Monocytes # (test code 0.7 See_Comment [Aut omated message] The = Monocytes #) system which generated this result tra nsmitted reference range : <=0.8. The reference r kyle was not used to int erpret this result as normal/abnormal . [place] [address]-10-23 09:39:00 Test Item Value Reference Range Interpretation Comments Eosinophils # (test code 0.4 See_Comment [A utomated message] The = Eosinophils #) system whic h generated this result tra nsmitted reference range : <=0.5. The reference r kyle was not used to int erpret this result as normal/abnormal . [place] [address]-10-23 09:39:00 Test Item Value Reference Range Interpretation Comments Basophils # (test code 0.1 See_Comment [Aut omated message] The = Basophils #) system which generated this result tra nsmitted reference range : <=0.2. The reference r kyle was not used to int erpret this result as normal/abnormal . [place] 406462-10-23 09:39:00 Test Item Value Reference Range Interpretation Comments WBC (test code = WBC) 9.9 3.7-10.4 [place] 406462-10-23 09:39:00 Test Item Value Reference Range Interpretation Comments RBC (test code = RBC) 3.05 4.20-5.40 [place] [address]-10-23 09:39:00 Test Item Value Reference Range Interpretation Comments Hgb (test code = Hgb) 8.5 12.0-16.0 [place] [address]-10-23 09:39:00 Test Item Value Reference Range Interpretation Comments Hct (test code = Hct) 25.6 36.0-48.0 [place] [address]-10-23 09:39:00 Test Item Value Reference Range Interpretation Comments MCV (test code = MCV) 83.9 80.0-98.0 [place] [address]-10-23 09:39:00 Test Item Value Reference Range Interpretation Comments MCH (test code = MCH) 27.9 pg 27.0-31.0 [facility]ix[facility]CIHXTDHJGX3771-84-18 09:39:00 Test Item Value Reference Range Interpretation Comments MCHC (test code = MCHC) 33.2 32.0-36.0 [facility] HospitalOfxmpxiUBPEIFPRER8640-27-08 09:39:00 Test Item Value Reference Range Interpretation Comments RDW (test code = RDW) 12.6 11.5-14.5 [place] 406462-10-23 09:39:00 Test Item Value Reference Range Interpretation Comments Platelet (test code = Platelet) 358 133-450 [facility] HospitalUdxsaxhAVFMYPCVND8000-77-97 09:39:00 Test Item Value Reference Range Interpretation Comments MPV (test code = MPV) 8.1 7.4-10.4 [facility]2022-10-23 09:39:00 Test Item Value Reference Range Interpretation Comments Ca Ion WB (test code = Ca Ion WB) 1.11 1.05-1.25 [place] 118662-10-23 09:39:00 Test Item Value Reference Range Interpretation Comments Ca Ion at pH 7.4 WB (test code = Ca Ion 1.13 1.05-1.25 at pH 7.4 WB) [facility]2022-10-23 09:39:00 Test Item Value Reference Range Interpretation Comments Glucose Lvl (test code = Glucose Lvl) 150 70-99 [facility]2022-10-23 09:39:00 Test Item Value Reference Range Interpretation Comments BUN (test code = BUN) 9 7-22 [place] 250692-10-23 09:39:00 Test Item Value Reference Range Interpretation Comments Creatinine Lvl (test code = Creatinine 0.42 0.50-1.40 Lvl) [place] 250692-10-23 09:39:00 Test Item Value Reference Range Interpretation Comments Sodium Lvl (test code = Sodium Lvl) 134 135-145 [place] 250692-10-23 09:39:00 Test Item Value Reference Range Interpretation Comments Potassium Lvl (test code = Potassium 3.3 3.5-5.1 Lvl) [place] 250692-10-23 09:39:00 Test Item Value Reference Range Interpretation Comments Chloride Lvl (test code = Chloride Lvl) 102 95-109 [place] 250692-10-23 09:39:00 Test Item Value Reference Range Interpretation Comments CO2 (test code = CO2) 25 24-32 [place] 250692-10-23 09:39:00 Test Item Value Reference Range Interpretation Comments Calcium Lvl (test code = Calcium Lvl) 8.7 8.5-10.5 [place] [address]-10-23 09:39:00 Test Item Value Reference Range Interpretation Comments AGAP (test code = AGAP) 10.3 10.0-20.0 [place] 250692-10-23 09:39:00 Test Item Value Reference Range Interpretation Comments eGFR (test code = eGFR) 116 [place] 250692-10-23 09:39:00 Test Item Value Reference Range Interpretation Comments Magnesium Lvl (test code = Magnesium 1.9 1.8-2.4 Lvl) [place] 250692-10-23 09:39:00 Test Item Value Reference Range Interpretation Comments Phosphorus (test code = Phosphorus) 2.6 2.5-4.5 [place] [address]-10-23 09:39:00 Test Item Value Reference Range Interpretation Comments Segs (test code = Segs) 68.1 45.0-75.0 [place] [address]-10-23 09:39:00 Test Item Value Reference Range Interpretation Comments Lymphocytes (test code = Lymphocytes) 20.4 20.0-40.0 [place] [address]-10-23 09:39:00 Test Item Value Reference Range Interpretation Comments Monocytes (test code = Monocytes) 6.7 2.0-12.0 [place] [address]-10-23 09:39:00 Test Item Value Reference Range Interpretation Comments Eosinophils (test code = 4.1 See_Comment [A utomated message] The Eosinophils) system which ge nerated this result tra nsmitted reference range : <=4.0. The reference r kyle was not used to int erpret this result as normal/abnormal . [place] 406462-10-23 09:39:00 Test Item Value Reference Range Interpretation Comments Basophils (test code = 0.7 See_Comment [Aut omated message] The Basophils) system which ge nerated this result tra nsmitted reference range : <=1.0. The reference r kyle was not used to int erpret this result as normal/abnormal . [facility] HospitalJsiiaqkCVNXNXNJOV4549-04-94 09:39:00 Test Item Value Reference Range Interpretation Comments Neutrophils # (test code = Neutrophils 6.7 1.5-8.1 #) [facility] HospitalHowhccaKXMLJRAYSH3553-56-06 09:39:00 Test Item Value Reference Range Interpretation Comments Lymphocytes # (test code = Lymphocytes 2.0 1.0-5.5 #) [place] 406462-10-23 09:39:00 Test Item Value Reference Range Interpretation Comments Monocytes # (test code 0.7 See_Comment [Aut omated message] The = Monocytes #) system which generated this result tra nsmitted reference range : <=0.8. The reference r kyle was not used to int erpret this result as normal/abnormal . [facility] HospitalJlfjxiyKPXDYDKRIK4109-42-14 09:39:00 Test Item Value Reference Range Interpretation Comments Eosinophils # (test code 0.4 See_Comment [A utomated message] The = Eosinophils #) system whic h generated this result tra nsmitted reference range : <=0.5. The reference r kyle was not used to int erpret this result as normal/abnormal . [facility] HospitalTysrznuXUKCWWMJLT6875-28-61 09:39:00 Test Item Value Reference Range Interpretation Comments Basophils # (test code 0.1 See_Comment [Aut omated message] The = Basophils #) system which generated this result tra nsmitted reference range : <=0.2. The reference r kyle was not used to int erpret this result as normal/abnormal . [facility] HospitalLqfodkrQFLPFEBTKV9053-92-23 09:39:00 Test Item Value Reference Range Interpretation Comments WBC (test code = WBC) 9.9 3.7-10.4 [place] 406462-10-23 09:39:00 Test Item Value Reference Range Interpretation Comments RBC (test code = RBC) 3.05 4.20-5.40 [place] 406462-10-23 09:39:00 Test Item Value Reference Range Interpretation Comments Hgb (test code = Hgb) 8.5 12.0-16.0 [place] 406462-10-23 09:39:00 Test Item Value Reference Range Interpretation Comments Hct (test code = Hct) 25.6 36.0-48.0 [facility] HospitalWcksnylYEBZEPEHZK7949-44-62 09:39:00 Test Item Value Reference Range Interpretation Comments MCV (test code = MCV) 83.9 80.0-98.0 [place] 406462-10-23 09:39:00 Test Item Value Reference Range Interpretation Comments MCH (test code = MCH) 27.9 pg 27.0-31.0 [facility] HospitalPfueymdGENXGCSTJX5683-99-02 09:39:00 Test Item Value Reference Range Interpretation Comments MCHC (test code = MCHC) 33.2 32.0-36.0 [facility] HospitalGrdjefbXCVQNICLTJ5268-35-76 09:39:00 Test Item Value Reference Range Interpretation Comments RDW (test code = RDW) 12.6 11.5-14.5 [facility] HospitalAsrrevnKHLGJMRAYS5104-28-80 09:39:00 Test Item Value Reference Range Interpretation Comments Platelet (test code = Platelet) 358 133-450 [facility] HospitalBhzykosPJPICJQAHK5004-16-62 09:39:00 Test Item Value Reference Range Interpretation Comments MPV (test code = MPV) 8.1 7.4-10.4 [facility]2022-10-23 09:39:00 Test Item Value Reference Range Interpretation Comments Ca Ion WB (test code = Ca Ion WB) 1.11 1.05-1.25 [facility]2022-10-23 09:39:00 Test Item Value Reference Range Interpretation Comments Ca Ion at pH 7.4 WB (test code = Ca Ion 1.13 1.05-1.25 at pH 7.4 WB) [facility]2022-10-23 09:39:00 Test Item Value Reference Range Interpretation Comments Glucose Lvl (test code = Glucose Lvl) 150 70-99 [facility]2022-10-23 09:39:00 Test Item Value Reference Range Interpretation Comments BUN (test code = BUN) 9 7-22 [facility]2022-10-23 09:39:00 Test Item Value Reference Range Interpretation Comments Creatinine Lvl (test code = Creatinine 0.42 0.50-1.40 Lvl) [place] 250692-10-23 09:39:00 Test Item Value Reference Range Interpretation Comments Sodium Lvl (test code = Sodium Lvl) 134 135-145 [place] 250692-10-23 09:39:00 Test Item Value Reference Range Interpretation Comments Potassium Lvl (test code = Potassium 3.3 3.5-5.1 Lvl) [place] 250692-10-23 09:39:00 Test Item Value Reference Range Interpretation Comments Chloride Lvl (test code = Chloride Lvl) 102 95-109 [place] 250692-10-23 09:39:00 Test Item Value Reference Range Interpretation Comments CO2 (test code = CO2) 25 24-32 [place] 250692-10-23 09:39:00 Test Item Value Reference Range Interpretation Comments Calcium Lvl (test code = Calcium Lvl) 8.7 8.5-10.5 [place] 250692-10-23 09:39:00 Test Item Value Reference Range Interpretation Comments AGAP (test code = AGAP) 10.3 10.0-20.0 [place] 250692-10-23 09:39:00 Test Item Value Reference Range Interpretation Comments eGFR (test code = eGFR) 116 [place] 250692-10-23 09:39:00 Test Item Value Reference Range Interpretation Comments Magnesium Lvl (test code = Magnesium 1.9 1.8-2.4 Lvl) [place] 250692-10-23 09:39:00 Test Item Value Reference Range Interpretation Comments Phosphorus (test code = Phosphorus) 2.6 2.5-4.5 [place] [address]-10-23 09:39:00 Test Item Value Reference Range Interpretation Comments Segs (test code = Segs) 68.1 45.0-75.0 [place] [address]-10-23 09:39:00 Test Item Value Reference Range Interpretation Comments Lymphocytes (test code = Lymphocytes) 20.4 20.0-40.0 [place] [address]-10-23 09:39:00 Test Item Value Reference Range Interpretation Comments Monocytes (test code = Monocytes) 6.7 2.0-12.0 [place] [address]-10-23 09:39:00 Test Item Value Reference Range Interpretation Comments Eosinophils (test code = 4.1 See_Comment [A utomated message] The Eosinophils) system which ge nerated this result tra nsmitted reference range : <=4.0. The reference r kyle was not used to int erpret this result as normal/abnormal . [address]10-23 09:39:00 Test Item Value Reference Range Interpretation Comments Basophils (test code = 0.7 See_Comment [Aut omated message] The Basophils) system which ge nerated this result tra nsmitted reference range : <=1.0. The reference r kyle was not used to int erpret this result as normal/abnormal . [address]10-23 09:39:00 Test Item Value Reference Range Interpretation Comments Neutrophils # (test code = Neutrophils 6.7 1.5-8.1 #) [address]10-23 09:39:00 Test Item Value Reference Range Interpretation Comments Lymphocytes # (test code = Lymphocytes 2.0 1.0-5.5 #) [address]10-23 09:39:00 Test Item Value Reference Range Interpretation Comments Monocytes # (test code 0.7 See_Comment [Aut omated message] The = Monocytes #) system which generated this result tra nsmitted reference range : <=0.8. The reference r kyle was not used to int erpret this result as normal/abnormal . [place] [address]-10-23 09:39:00 Test Item Value Reference Range Interpretation Comments Eosinophils # (test code 0.4 See_Comment [A utomated message] The = Eosinophils #) system [facility] h generated this result tra nsmitted reference range : <=0.5. The reference r kyle was not used to int erpret this result as normal/abnormal . [place] [address]-10-23 09:39:00 Test Item Value Reference Range Interpretation Comments Basophils # (test code 0.1 See_Comment [Aut omated message] The = Basophils #) system which generated this result tra nsmitted reference range : <=0.2. The reference r kyle was not used to int erpret this result as normal/abnormal . [place] [address]-10-23 09:39:00 Test Item Value Reference Range Interpretation Comments WBC (test code = WBC) 9.9 3.7-10.4 [facility] CenterSylfjphOACFBXNSXO8993-81-84 09:39:00 Test Item Value Reference Range Interpretation Comments RBC (test code = RBC) 3.05 4.20-5.40 [facility] CenterXabesvvJXSRLDDCBJ3416-31-68 09:39:00 Test Item Value Reference Range Interpretation Comments Hgb (test code = Hgb) 8.5 12.0-16.0 [facility] HospitalVwrpkkuOOVTZFNIIE0518-82-05 09:39:00 Test Item Value Reference Range Interpretation Comments Hct (test code = Hct) 25.6 36.0-48.0 [facility]XMZHFWTOWR6882-64-71 09:39:00 Test Item Value Reference Range Interpretation Comments MCV (test code = MCV) 83.9 80.0-98.0 [facility]XrjopnoVXGFXVAAIA8114-46-64 09:39:00 Test Item Value Reference Range Interpretation Comments MCH (test code = MCH) 27.9 pg 27.0-31.0 [facility] HospitalJaddxvsTJHKCJDWCF5000-01-37 09:39:00 Test Item Value Reference Range Interpretation Comments MCHC (test code = MCHC) 33.2 32.0-36.0 [facility] HospitalTcaohbaMEIRSSSOOL1417-92-81 09:39:00 Test Item Value Reference Range Interpretation Comments RDW (test code = RDW) 12.6 11.5-14.5 [facility] HospitalFlktclcVRGKAPHJLR6256-29-19 09:39:00 Test Item Value Reference Range Interpretation Comments Platelet (test code = Platelet) 358 133-450 [facility] HospitalFrrnoctOATDHRDLNF2532-18-71 09:39:00 Test Item Value Reference Range Interpretation Comments MPV (test code = MPV) 8.1 7.4-10.4 [facility] CenterPARATHYROID YIFYTUV8259-49-35 09:39:00 Test Item Value Reference Range Interpretation Comments Ca Ion WB (test code = Ca Ion WB) 1.11 1.05-1.25 [facility] ICGLNBI0574-45-96 09:39:00 Test Item Value Reference Range Interpretation Comments Ca Ion at pH 7.4 WB (test code = Ca Ion 1.13 1.05-1.25 at pH 7.4 WB) [facility]2022-10-23 09:39:00 Test Item Value Reference Range Interpretation Comments Glucose Lvl (test code = Glucose Lvl) 150 70-99 [place] 250692-10-23 09:39:00 Test Item Value Reference Range Interpretation Comments BUN (test code = BUN) 9 7-22 [place] 250692-10-23 09:39:00 Test Item Value Reference Range Interpretation Comments Creatinine Lvl (test code = Creatinine 0.42 0.50-1.40 Lvl) [place] 250692-10-23 09:39:00 Test Item Value Reference Range Interpretation Comments Sodium Lvl (test code = Sodium Lvl) 134 135-145 [place] 250692-10-23 09:39:00 Test Item Value Reference Range Interpretation Comments Potassium Lvl (test code = Potassium 3.3 3.5-5.1 Lvl) [place] 250692-10-23 09:39:00 Test Item Value Reference Range Interpretation Comments Chloride Lvl (test code = Chloride Lvl) 102 95-109 [place] 250692-10-23 09:39:00 Test Item Value Reference Range Interpretation Comments CO2 (test code = CO2) 25 24-32 [place] 250692-10-23 09:39:00 Test Item Value Reference Range Interpretation Comments Calcium Lvl (test code = Calcium Lvl) 8.7 8.5-10.5 [place] 250692-10-23 09:39:00 Test Item Value Reference Range Interpretation Comments AGAP (test code = AGAP) 10.3 10.0-20.0 [place] 250692-10-23 09:39:00 Test Item Value Reference Range Interpretation Comments eGFR (test code = eGFR) 116 [place] 250692-10-23 09:39:00 Test Item Value Reference Range Interpretation Comments Magnesium Lvl (test code = Magnesium 1.9 1.8-2.4 Lvl) [facility]2022-10-23 09:39:00 Test Item Value Reference Range Interpretation Comments Phosphorus (test code = Phosphorus) 2.6 2.5-4.5 [place] 406462-10-23 09:39:00 Test Item Value Reference Range Interpretation Comments Segs (test code = Segs) 68.1 45.0-75.0 [place] 406462-10-23 09:39:00 Test Item Value Reference Range Interpretation Comments Lymphocytes (test code = Lymphocytes) 20.4 20.0-40.0 [place] 406462-10-23 09:39:00 Test Item Value Reference Range Interpretation Comments Monocytes (test code = Monocytes) 6.7 2.0-12.0 [place] 406462-10-23 09:39:00 Test Item Value Reference Range Interpretation Comments Eosinophils (test code = 4.1 See_Comment [A utomated message] The Eosinophils) system which ge nerated this result tra nsmitted reference range : <=4.0. The reference r kyle was not used to int erpret this result as normal/abnormal . [place] 406462-10-23 09:39:00 Test Item Value Reference Range Interpretation Comments Basophils (test code = 0.7 See_Comment [Aut omated message] The Basophils) system which ge nerated this result tra nsmitted reference range : <=1.0. The reference r kyle was not used to int erpret this result as normal/abnormal . [facility] HospitalVzigrpjTILCWEXDCR9551-76-63 09:39:00 Test Item Value Reference Range Interpretation Comments Neutrophils # (test code = Neutrophils 6.7 1.5-8.1 #) [place] 406462-10-23 09:39:00 Test Item Value Reference Range Interpretation Comments Lymphocytes # (test code = Lymphocytes 2.0 1.0-5.5 #) [place] 406462-10-23 09:39:00 Test Item Value Reference Range Interpretation Comments Monocytes # (test code 0.7 See_Comment [Aut omated message] The = Monocytes #) system which generated this result tra nsmitted reference range : <=0.8. The reference r kyle was not used to int erpret this result as normal/abnormal . [facility] HospitalCchvrvsUXOQADOCDX4090-67-11 09:39:00 Test Item Value Reference Range Interpretation Comments Eosinophils # (test code 0.4 See_Comment [A utomated message] The = Eosinophils #) system ic h generated this result tra nsmitted reference range : <=0.5. The reference r kyle was not used to int erpret this result as normal/abnormal . [facility] HospitalDjbqyxnSBMULTFMCM0444-43-04 09:39:00 Test Item Value Reference Range Interpretation Comments Basophils # (test code 0.1 See_Comment [Aut omated message] The = Basophils #) system which generated this result tra nsmitted reference range : <=0.2. The reference r kyle was not used to int erpret this result as normal/abnormal . [facility] HospitalLqjroqpKNMDFFQJUU3827-44-47 09:39:00 Test Item Value Reference Range Interpretation Comments WBC (test code = WBC) 9.9 3.7-10.4 [facility] HospitalNkzfejrSOMOFZWHIP7456-43-41 09:39:00 Test Item Value Reference Range Interpretation Comments RBC (test code = RBC) 3.05 4.20-5.40 [facility] HospitalZfeeksvJKRSAYXKYW7452-64-43 09:39:00 Test Item Value Reference Range Interpretation Comments Hgb (test code = Hgb) 8.5 12.0-16.0 [facility] HospitalQumrjoyBJRKQHZYQB0240-09-88 09:39:00 Test Item Value Reference Range Interpretation Comments Hct (test code = Hct) 25.6 36.0-48.0 [facility] HospitalXdttvzeZNSPJXHVFW3626-17-70 09:39:00 Test Item Value Reference Range Interpretation Comments MCV (test code = MCV) 83.9 80.0-98.0 [facility] HospitalYiddlhuZEIMXMDYUR1430-38-51 09:39:00 Test Item Value Reference Range Interpretation Comments MCH (test code = MCH) 27.9 pg 27.0-31.0 [facility] HospitalEzekyvnHDTNGLXWER3336-11-63 09:39:00 Test Item Value Reference Range Interpretation Comments MCHC (test code = MCHC) 33.2 32.0-36.0 [facility] HospitalNweqoaqAWEHNSWKHL2914-51-04 09:39:00 Test Item Value Reference Range Interpretation Comments RDW (test code = RDW) 12.6 11.5-14.5 [facility] HospitalPabnhdvJWAVEUISHI8487-94-32 09:39:00 Test Item Value Reference Range Interpretation Comments Platelet (test code = Platelet) 358 133-450 [facility] HospitalQvmyycvPWGNPOADQR2982-86-47 09:39:00 Test Item Value Reference Range Interpretation Comments MPV (test code = MPV) 8.1 7.4-10.4 [facility] CenterPARATHYROID SNJRZVE7810-62-52 09:39:00 Test Item Value Reference Range Interpretation Comments Ca Ion WB (test code = Ca Ion WB) 1.11 1.05-1.25 [facility]ATHYCH[facility]ERSURXJLA5794-17-70 09:39:00 Test Item Value Reference Range Interpretation Comments Ca Ion at pH 7.4 WB (test code = Ca Ion 1.13 1.05-1.25 at pH 7.4 WB) [place] 250692-10-23 09:39:00 Test Item Value Reference Range Interpretation Comments Glucose Lvl (test code = Glucose Lvl) 150 70-99 [facility]2022-10-23 09:39:00 Test Item Value Reference Range Interpretation Comments BUN (test code = BUN) 9 03-24 [facility]2022-10-23 09:39:00 Test Item Value Reference Range Interpretation Comments Creatinine Lvl (test code = Creatinine 0.42 0.50-1.40 Lvl) [place] 250692-10-23 09:39:00 Test Item Value Reference Range Interpretation Comments Glucose Lvl (test code = Glucose Lvl) 150 70-99 [facility]2022-10-23 09:39:00 Test Item Value Reference Range Interpretation Comments BUN (test code = BUN) 9 03-24 [facility]2022-10-23 09:39:00 Test Item Value Reference Range Interpretation Comments Creatinine Lvl (test code = Creatinine 0.42 0.50-1.40 Lvl) [facility]2022-10-23 09:39:00 Test Item Value Reference Range Interpretation Comments Sodium Lvl (test code = Sodium Lvl) 134 135-145 [facility]2022-10-23 09:39:00 Test Item Value Reference Range Interpretation Comments Potassium Lvl (test code = Potassium 3.3 3.5-5.1 Lvl) [place] 250692-10-23 09:39:00 Test Item Value Reference Range Interpretation Comments Chloride Lvl (test code = Chloride Lvl) 102 95-109 [place] 250692-10-23 09:39:00 Test Item Value Reference Range Interpretation Comments CO2 (test code = CO2) 25 24-32 [place] 250692-10-23 09:39:00 Test Item Value Reference Range Interpretation Comments Calcium Lvl (test code = Calcium Lvl) 8.7 8.5-10.[address]10-23 09:39:00 Test Item Value Reference Range Interpretation Comments AGAP (test code = AGAP) 10.3 10.0-20.0 [address]10-23 09:39:00 Test Item Value Reference Range Interpretation Comments eGFR (test code = eGFR) [address]10-23 09:39:00 Test Item Value Reference Range Interpretation Comments Magnesium Lvl (test code = Magnesium 1.9 1.8-2.4 Lvl) [address]10-23 09:39:00 Test Item Value Reference Range Interpretation Comments Phosphorus (test code = Phosphorus) 2.6 2.5-4.5 [address]10-23 09:39:00 Test Item Value Reference Range Interpretation Comments Segs (test code = Segs) 68.1 45.0-75.0 [address]10-23 09:39:00 Test Item Value Reference Range Interpretation Comments Lymphocytes (test code = Lymphocytes) 20.4 20.0-40.0 [place] [address]-10-23 09:39:00 Test Item Value Reference Range Interpretation Comments Monocytes (test code = Monocytes) 6.7 2.0-12.0 [place] [address]-10-23 09:39:00 Test Item Value Reference Range Interpretation Comments Eosinophils (test code = 4.1 See_Comment [A utomated message] The Eosinophils) system which ge nerated this result tra nsmitted reference range : <=4.0. The reference r kyle was not used to int erpret this result as normal/abnormal . [place] [address]-10-23 09:39:00 Test Item Value Reference Range Interpretation Comments Basophils (test code = 0.7 See_Comment [Aut omated message] The Basophils) system which ge nerated this result tra nsmitted reference range : <=1.0. The reference r kyle was not used to int erpret this result as normal/abnormal . [place] [address]-10-23 09:39:00 Test Item Value Reference Range Interpretation Comments Neutrophils # (test code = Neutrophils 6.7 1.5-8.1 #) [place] [address]-10-23 09:39:00 Test Item Value Reference Range Interpretation Comments Lymphocytes # (test code = Lymphocytes 2.0 1.0-5.5 #) [facility] 09:39:00 Test Item Value Reference Range Interpretation Comments Monocytes # (test code 0.7 See_Comment [Aut omated message] The = Monocytes #) system which generated this result tra nsmitted reference range : <=0.8. The reference r kyle was not used to int erpret this result as normal/abnormal . [facility]edanaNZHGGBSKGP7039-29-[facility] 09:39:00 Test Item Value Reference Range Interpretation Comments Eosinophils # (test code 0.4 See_Comment [A utomated message] The = Eosinophils #) system whic h generated this result tra nsmitted reference range : <=0.5. The reference r kyle was not used to int erpret this result as normal/abnormal . [place] 406462-10-23 09:39:00 Test Item Value Reference Range Interpretation Comments Basophils # (test code 0.1 See_Comment [Aut omated message] The = Basophils #) system which generated this result tra nsmitted reference range : <=0.2. The reference r kyle was not used to int erpret this result as normal/abnormal . [facility]PmxtxswLZHMWDPIEG9233-19-69 09:39:00 Test Item Value Reference Range Interpretation Comments WBC (test code = WBC) 9.9 3.7-10.4 [place] 406462-10-23 09:39:00 Test Item Value Reference Range Interpretation Comments RBC (test code = RBC) 3.05 4.20-5.40 [place] [address]-10-23 09:39:00 Test Item Value Reference Range Interpretation Comments Hgb (test code = Hgb) 8.5 12.0-16.0 [place] [address]-10-23 09:39:00 Test Item Value Reference Range Interpretation Comments Hct (test code = Hct) 25.6 36.0-48.0 [place] 406462-10-23 09:39:00 Test Item Value Reference Range Interpretation Comments MCV (test code = MCV) 83.9 80.0-98.0 [place] 406462-10-23 09:39:00 Test Item Value Reference Range Interpretation Comments MCH (test code = MCH) 27.9 pg 27.0-31.0 [place] [address]-10-23 09:39:00 Test Item Value Reference Range Interpretation Comments MCHC (test code = MCHC) 33.2 32.0-36.0 [place] 406462-10-23 09:39:00 Test Item Value Reference Range Interpretation Comments RDW (test code = RDW) 12.6 11.5-14.5 [place] 406462-10-23 09:39:00 Test Item Value Reference Range Interpretation Comments Platelet (test code = Platelet) 358 133-450 [place] 406462-10-23 09:39:00 Test Item Value Reference Range Interpretation Comments MPV (test code = MPV) 8.1 7.4-10.4 [facility]2022-10-23 09:39:00 Test Item Value Reference Range Interpretation Comments Ca Ion WB (test code = Ca Ion WB) 1.11 1.05-1.25 [place] 118662-10-23 09:39:00 Test Item Value Reference Range Interpretation Comments Ca Ion at pH 7.4 WB (test code = Ca Ion 1.13 1.05-1.25 at pH 7.4 WB) [facility]2022-10-23 09:39:00 Test Item Value Reference Range Interpretation Comments Sodium Lvl (test code = Sodium Lvl) 134 135-145 [place] 250692-10-23 09:39:00 Test Item Value Reference Range Interpretation Comments Potassium Lvl (test code = Potassium 3.3 3.5-5.1 Lvl) [facility]2022-10-23 09:39:00 Test Item Value Reference Range Interpretation Comments Chloride Lvl (test code = Chloride Lvl) 102 95-109 [place] 250692-10-23 09:39:00 Test Item Value Reference Range Interpretation Comments CO2 (test code = CO2) 25 24-32 [place] 250692-10-23 09:39:00 Test Item Value Reference Range Interpretation Comments Glucose Lvl (test code = Glucose Lvl) 150 70-99 [place] 250692-10-23 09:39:00 Test Item Value Reference Range Interpretation Comments BUN (test code = BUN) 9 7-22 [place] 250692-10-23 09:39:00 Test Item Value Reference Range Interpretation Comments Creatinine Lvl (test code = Creatinine 0.42 0.50-1.40 Lvl) [place] 250692-10-23 09:39:00 Test Item Value Reference Range Interpretation Comments Sodium Lvl (test code = Sodium Lvl) 134 135-145 [place] 250692-10-23 09:39:00 Test Item Value Reference Range Interpretation Comments Potassium Lvl (test code = Potassium 3.3 3.5-5.1 Lvl) [place] 250692-10-23 09:39:00 Test Item Value Reference Range Interpretation Comments Chloride Lvl (test code = Chloride Lvl) 102 95-109 [place] 250692-10-23 09:39:00 Test Item Value Reference Range Interpretation Comments CO2 (test code = CO2) 25 24-32 [place] 250692-10-23 09:39:00 Test Item Value Reference Range Interpretation Comments Calcium Lvl (test code = Calcium Lvl) 8.7 8.5-10.5 [facility]2022-10-23 09:39:00 Test Item Value Reference Range Interpretation Comments AGAP (test code = AGAP) 10.3 10.0-20.0 [place] 250692-10-23 09:39:00 Test Item Value Reference Range Interpretation Comments eGFR (test code = eGFR) 116 [facility]2022-10-23 09:39:00 Test Item Value Reference Range Interpretation Comments Magnesium Lvl (test code = Magnesium 1.9 1.8-2.4 Lvl) [facility]2022-10-23 09:39:00 Test Item Value Reference Range Interpretation Comments Phosphorus (test code = Phosphorus) 2.6 2.5-4.5 [place] 250692-10-23 09:39:00 Test Item Value Reference Range Interpretation Comments Calcium Lvl (test code = Calcium Lvl) 8.7 8.5-10.5 [place] 406462-10-23 09:39:00 Test Item Value Reference Range Interpretation Comments Segs (test code = Segs) 68.1 45.0-75.0 [place] 406462-10-23 09:39:00 Test Item Value Reference Range Interpretation Comments Lymphocytes (test code = Lymphocytes) 20.4 20.0-40.0 [place] 406462-10-23 09:39:00 Test Item Value Reference Range Interpretation Comments Monocytes (test code = Monocytes) 6.7 2.0-12.0 [place] 406462-10-23 09:39:00 Test Item Value Reference Range Interpretation Comments Eosinophils (test code = 4.1 See_Comment [A utomated message] The Eosinophils) system which ge nerated this result tra nsmitted reference range : <=4.0. The reference r kyle was not used to int erpret this result as normal/abnormal . [place] 406462-10-23 09:39:00 Test Item Value Reference Range Interpretation Comments Basophils (test code = 0.7 See_Comment [Aut omated message] The Basophils) system which ge nerated this result tra nsmitted reference range : <=1.0. The reference r kyle was not used to int erpret this result as normal/abnormal . [facility] HospitalFypxtcpUZMJMKKIFR3984-58-57 09:39:00 Test Item Value Reference Range Interpretation Comments Neutrophils # (test code = Neutrophils 6.7 1.5-8.1 #) [facility] HospitalIzdvyopHIQWETXXGV9518-74-53 09:39:00 Test Item Value Reference Range Interpretation Comments Lymphocytes # (test code = Lymphocytes 2.0 1.0-5.5 #) [facility] HospitalRjznfsxKRYYFONZTM3198-86-60 09:39:00 Test Item Value Reference Range Interpretation Comments Monocytes # (test code 0.7 See_Comment [Aut omated message] The = Monocytes #) system which generated this result tra nsmitted reference range : <=0.8. The reference r kyle was not used to int erpret this result as normal/abnormal . [place] 406462-10-23 09:39:00 Test Item Value Reference Range Interpretation Comments Eosinophils # (test code 0.4 See_Comment [A utomated message] The = Eosinophils #) system whic h generated this result tra nsmitted reference range : <=0.5. The reference r kyle was not used to int erpret this result as normal/abnormal . [facility] HospitalAlnuwoiQTEXCEVIML2410-29-40 09:39:00 Test Item Value Reference Range Interpretation Comments Basophils # (test code 0.1 See_Comment [Aut omated message] The = Basophils #) system which generated this result tra nsmitted reference range : <=0.2. The reference r kyle was not used to int erpret this result as normal/abnormal . [facility] HospitalNlczgdnSJVZREVYXE1784-33-57 09:39:00 Test Item Value Reference Range Interpretation Comments WBC (test code = WBC) 9.9 3.7-10.4 [facility] HospitalHxuqrfbWVENYKXICC6977-81-95 09:39:00 Test Item Value Reference Range Interpretation Comments RBC (test code = RBC) 3.05 4.20-5.40 [facility] HospitalJqjoohgXMPUNWRYXM1878-42-21 09:39:00 Test Item Value Reference Range Interpretation Comments Hgb (test code = Hgb) 8.5 12.0-16.0 [facility] HospitalDdqqiggXGOSNMALTJ0175-85-50 09:39:00 Test Item Value Reference Range Interpretation Comments Hct (test code = Hct) 25.6 36.0-48.0 [facility] HospitalXfvlzlaIKIIPGLCTV1478-80-88 09:39:00 Test Item Value Reference Range Interpretation Comments MCV (test code = MCV) 83.9 80.0-98.0 [facility] 09:39:00 Test Item Value Reference Range Interpretation Comments MCH (test code = MCH) 27.9 pg 27.0-31.0 [facility] HospitalWvijbcuDHRZWYZPOQ2266-31-99 09:39:00 Test Item Value Reference Range Interpretation Comments MCHC (test code = MCHC) 33.2 32.0-36.0 [facility] HospitalYutrkidVLYTXYNKJF0116-62-29 09:39:00 Test Item Value Reference Range Interpretation Comments RDW (test code = RDW) 12.6 11.5-14.5 [facility] HospitalXiuqdzfRGEMURHNNQ9749-90-29 09:39:00 Test Item Value Reference Range Interpretation Comments Platelet (test code = Platelet) 358 133-450 [facility] HospitalXsmguqhEUYOZRKGGJ6251-98-54 09:39:00 Test Item Value Reference Range Interpretation Comments MPV (test code = MPV) 8.1 7.4-10.4 [facility]PARATHY[facility]ID PDCCTXH7893-67-88 09:39:00 Test Item Value Reference Range Interpretation Comments Ca Ion WB (test code = Ca Ion WB) 1.11 1.05-1.25 [facility] CenterPARATHYROID ITCUTZF9549-47-44 09:39:00 Test Item Value Reference Range Interpretation Comments Ca Ion at pH 7.4 WB (test code = Ca Ion 1.13 1.05-1.25 at pH 7.4 WB) [place] 250692-10-23 09:39:00 Test Item Value Reference Range Interpretation Comments AGAP (test code = AGAP) 10.3 10.0-20.0 [place] 250692-10-23 09:39:00 Test Item Value Reference Range Interpretation Comments eGFR (test code = eGFR) 116 [facility]2022-10-23 09:39:00 Test Item Value Reference Range Interpretation Comments Magnesium Lvl (test code = Magnesium 1.9 1.8-2.4 Lvl) [facility]2022-10-23 09:39:00 Test Item Value Reference Range Interpretation Comments Phosphorus (test code = Phosphorus) 2.6 2.5-4.5 [facility]2022-10-23 09:39:00 Test Item Value Reference Range Interpretation Comments Glucose Lvl (test code = Glucose Lvl) 150 70-99 [place] 250692-10-23 09:39:00 Test Item Value Reference Range Interpretation Comments BUN (test code = BUN) 9 7-22 [place] 250692-10-23 09:39:00 Test Item Value Reference Range Interpretation Comments Creatinine Lvl (test code = Creatinine 0.42 0.50-1.40 Lvl) [place] 250692-10-23 09:39:00 Test Item Value Reference Range Interpretation Comments Sodium Lvl (test code = Sodium Lvl) 134 135-145 [place] 250692-10-23 09:39:00 Test Item Value Reference Range Interpretation Comments Potassium Lvl (test code = Potassium 3.3 3.5-5.1 Lvl) [place] 250692-10-23 09:39:00 Test Item Value Reference Range Interpretation Comments Chloride Lvl (test code = Chloride Lvl) 102 95-109 [place] 250692-10-23 09:39:00 Test Item Value Reference Range Interpretation Comments CO2 (test code = CO2) 25 24-32 [place] 250692-10-23 09:39:00 Test Item Value Reference Range Interpretation Comments Calcium Lvl (test code = Calcium Lvl) 8.7 8.5-10.5 [place] 250692-10-23 09:39:00 Test Item Value Reference Range Interpretation Comments AGAP (test code = AGAP) 10.3 10.0-20.0 [place] 250692-10-23 09:39:00 Test Item Value Reference Range Interpretation Comments eGFR (test code = eGFR) 116 [place] 250692-10-23 09:39:00 Test Item Value Reference Range Interpretation Comments Magnesium Lvl (test code = Magnesium 1.9 1.8-2.4 Lvl) [place] 250692-10-23 09:39:00 Test Item Value Reference Range Interpretation Comments Phosphorus (test code = Phosphorus) 2.6 2.5-4.5 [place] 406462-10-23 09:39:00 Test Item Value Reference Range Interpretation Comments Segs (test code = Segs) 68.1 45.0-75.0 [place] [address]-10-23 09:39:00 Test Item Value Reference Range Interpretation Comments Lymphocytes (test code = Lymphocytes) 20.4 20.0-40.0 [place] [address]-10-23 09:39:00 Test Item Value Reference Range Interpretation Comments Monocytes (test code = Monocytes) 6.7 2.0-12.0 [place] [address]-10-23 09:39:00 Test Item Value Reference Range Interpretation Comments Eosinophils (test code = 4.1 See_Comment [A utomated message] The Eosinophils) system which ge nerated this result tra nsmitted reference range : <=4.0. The reference r kyle was not used to int erpret this result as normal/abnormal . [place] 406462-10-23 09:39:00 Test Item Value Reference Range Interpretation Comments Basophils (test code = 0.7 See_Comment [Aut omated message] The Basophils) system which ge nerated this result tra nsmitted reference range : <=1.0. The reference r kyle was not used to int erpret this result as normal/abnormal . [place] 406462-10-23 09:39:00 Test Item Value Reference Range Interpretation Comments Neutrophils # (test code = Neutrophils 6.7 1.5-8.1 #) [place] 406462-10-23 09:39:00 Test Item Value Reference Range Interpretation Comments Lymphocytes # (test code = Lymphocytes 2.0 1.0-5.5 #) [place] [address]-10-23 09:39:00 Test Item Value Reference Range Interpretation Comments Monocytes # (test code 0.7 See_Comment [Aut omated message] The = Monocytes #) system which generated this result tra nsmitted reference range : <=0.8. The reference r kyle was not used to int erpret this result as normal/abnormal . [place] [address]-10-23 09:39:00 Test Item Value Reference Range Interpretation Comments Eosinophils # (test code 0.4 See_Comment [A utomated message] The = Eosinophils #) system whic h generated this result tra nsmitted reference range : <=0.5. The reference r kyle was not used to int erpret this result as normal/abnormal . [place] 406462-10-23 09:39:00 Test Item Value Reference Range Interpretation Comments Basophils # (test code 0.1 See_Comment [Aut omated message] The = Basophils #) system which generated this result tra nsmitted reference range : <=0.2. The reference r kyle was not used to int erpret this result as normal/abnormal . [place] [address]-10-23 09:39:00 Test Item Value Reference Range Interpretation Comments WBC (test code = WBC) 9.9 3.7-10.4 [place] [address]-10-23 09:39:00 Test Item Value Reference Range Interpretation Comments RBC (test code = RBC) 3.05 4.20-5.40 [place] [address]-10-23 09:39:00 Test Item Value Reference Range Interpretation Comments Hgb (test code = Hgb) 8.5 12.0-16.0 [place] [address]-10-23 09:39:00 Test Item Value Reference Range Interpretation Comments Hct (test code = Hct) 25.6 36.0-48.0 [place] [address]-10-23 09:39:00 Test Item Value Reference Range Interpretation Comments MCV (test code = MCV) 83.9 80.0-98.0 [place] 406462-10-23 09:39:00 Test Item Value Reference Range Interpretation Comments MCH (test code = MCH) 27.9 pg 27.0-31.0 [place] 406462-10-23 09:39:00 Test Item Value Reference Range Interpretation Comments MCHC (test code = MCHC) 33.2 32.0-36.0 [facility] HospitalFbwexslYCYKXQJCOY4166-81-69 09:39:00 Test Item Value Reference Range Interpretation Comments RDW (test code = RDW) 12.6 11.5-14.5 [place] 406462-10-23 09:39:00 Test Item Value Reference Range Interpretation Comments Platelet (test code = Platelet) 358 133-450 [facility] HospitalMqttegzDUQBBEXUOZ3191-07-09 09:39:00 Test Item Value Reference Range Interpretation Comments MPV (test code = MPV) 8.1 7.4-10.4 [facility]2022-10-23 09:39:00 Test Item Value Reference Range Interpretation Comments Ca Ion WB (test code = Ca Ion WB) 1.11 1.05-1.25 [facility] HospitalApkdjbfIQYZUEHJRH3107-90-32 09:39:00 Test Item Value Reference Range Interpretation Comments Segs (test code = Segs) 68.1 45.0-75.0 [facility]2022-10-23 09:39:00 Test Item Value Reference Range Interpretation Comments Ca Ion at pH 7.4 WB (test code = Ca Ion 1.13 1.05-1.25 at pH 7.4 WB) [facility] HospitalCikavntBTGLQJFFXG1413-06-54 09:39:00 Test Item Value Reference Range Interpretation Comments Lymphocytes (test code = Lymphocytes) 20.4 20.0-40.0 [place] 406462-10-23 09:39:00 Test Item Value Reference Range Interpretation Comments Monocytes (test code = Monocytes) 6.7 2.0-12.0 [facility] HospitalMnbyepuEZBXIXTATE1712-44-42 09:39:00 Test Item Value Reference Range Interpretation Comments Eosinophils (test code = 4.1 See_Comment [A utomated message] The Eosinophils) system which ge nerated this result tra nsmitted reference range : <=4.0. The reference r kyle was not used to int erpret this result as normal/abnormal . [facility] CenterZshsrukVEJXZGIXKC1179-04-73 09:39:00 Test Item Value Reference Range Interpretation Comments Basophils (test code = 0.7 See_Comment [Aut omated message] The Basophils) system which ge nerated this result tra nsmitted reference range : <=1.0. The reference r kyle was not used to int erpret this result as normal/abnormal . [place] 250692-10-23 09:39:00 Test Item Value Reference Range Interpretation Comments Glucose Lvl (test code = Glucose Lvl) 150 70-99 [place] 250692-10-23 09:39:00 Test Item Value Reference Range Interpretation Comments BUN (test code = BUN) 9 7-22 [place] 250692-10-23 09:39:00 Test Item Value Reference Range Interpretation Comments Creatinine Lvl (test code = Creatinine 0.42 0.50-1.40 Lvl) [place] 250692-10-23 09:39:00 Test Item Value Reference Range Interpretation Comments Sodium Lvl (test code = Sodium Lvl) 134 135-145 [place] 250692-10-23 09:39:00 Test Item Value Reference Range Interpretation Comments Potassium Lvl (test code = Potassium 3.3 3.5-5.1 Lvl) [place] 250692-10-23 09:39:00 Test Item Value Reference Range Interpretation Comments Chloride Lvl (test code = Chloride Lvl) 102 95-109 [place] 250692-10-23 09:39:00 Test Item Value Reference Range Interpretation Comments CO2 (test code = CO2) 25 24-32 [place] 250692-10-23 09:39:00 Test Item Value Reference Range Interpretation Comments Calcium Lvl (test code = Calcium Lvl) 8.7 8.5-10.5 [place] 250692-10-23 09:39:00 Test Item Value Reference Range Interpretation Comments AGAP (test code = AGAP) 10.3 10.0-20.0 [place] 250692-10-23 09:39:00 Test Item Value Reference Range Interpretation Comments eGFR (test code = eGFR) 116 [place] 250692-10-23 09:39:00 Test Item Value Reference Range Interpretation Comments Magnesium Lvl (test code = Magnesium 1.9 1.8-2.4 Lvl) [facility]2022-10-23 09:39:00 Test Item Value Reference Range Interpretation Comments Phosphorus (test code = Phosphorus) 2.6 2.5-4.5 [place] [address]-10-23 09:39:00 Test Item Value Reference Range Interpretation Comments Segs (test code = Segs) 68.1 45.0-75.0 [place] [address]-10-23 09:39:00 Test Item Value Reference Range Interpretation Comments Lymphocytes (test code = Lymphocytes) 20.4 20.0-40.0 [place] [address]-10-23 09:39:00 Test Item Value Reference Range Interpretation Comments Monocytes (test code = Monocytes) 6.7 2.0-12.0 [place] [address]-10-23 09:39:00 Test Item Value Reference Range Interpretation Comments Eosinophils (test code = 4.1 See_Comment [A utomated message] The Eosinophils) system which ge nerated this result tra nsmitted reference range : <=4.0. The reference r kyle was not used to int erpret this result as normal/abnormal . [place] [address]-10-23 09:39:00 Test Item Value Reference Range Interpretation Comments Basophils (test code = 0.7 See_Comment [Aut omated message] The Basophils) system which ge nerated this result tra nsmitted reference range : <=1.0. The reference r kyle was not used to int erpret this result as normal/abnormal . [place] 406462-10-23 09:39:00 Test Item Value Reference Range Interpretation Comments Neutrophils # (test code = Neutrophils 6.7 1.5-8.1 #) [place] [address]-10-23 09:39:00 Test Item Value Reference Range Interpretation Comments Lymphocytes # (test code = Lymphocytes 2.0 1.0-5.5 #) [place] [address]-10-23 09:39:00 Test Item Value Reference Range Interpretation Comments Monocytes # (test code 0.7 See_Comment [Aut omated message] The = Monocytes #) system which generated this result tra nsmitted reference range : <=0.8. The reference r kyle was not used to int erpret this result as normal/abnormal . [facility] HospitalNthxcxkPDCZXVCVSR3221-27-38 09:39:00 Test Item Value Reference Range Interpretation Comments Eosinophils # (test code 0.4 See_Comment [A utomated message] The = Eosinophils #) system whic h generated this result tra nsmitted reference range : <=0.5. The reference r kyle was not used to int erpret this result as normal/abnormal . [facility] HospitalJrjvukwLJSMEDRDYS8546-61-15 09:39:00 Test Item Value Reference Range Interpretation Comments Basophils # (test code 0.1 See_Comment [Aut omated message] The = Basophils #) system which generated this result tra nsmitted reference range : <=0.2. The reference r kyle was not used to int erpret this result as normal/abnormal . [place] 406462-10-23 09:39:00 Test Item Value Reference Range Interpretation Comments WBC (test code = WBC) 9.9 3.7-10.4 [place] 406462-10-23 09:39:00 Test Item Value Reference Range Interpretation Comments RBC (test code = RBC) 3.05 4.20-5.40 [place] [address]-10-23 09:39:00 Test Item Value Reference Range Interpretation Comments Hgb (test code = Hgb) 8.5 12.0-16.0 [place] 406462-10-23 09:39:00 Test Item Value Reference Range Interpretation Comments Hct (test code = Hct) 25.6 36.0-48.0 [place] 406462-10-23 09:39:00 Test Item Value Reference Range Interpretation Comments MCV (test code = MCV) 83.9 80.0-98.0 [place] [address]-10-23 09:39:00 Test Item Value Reference Range Interpretation Comments MCH (test code = MCH) 27.9 pg 27.0-31.0 [place] 406462-10-23 09:39:00 Test Item Value Reference Range Interpretation Comments MCHC (test code = MCHC) 33.2 32.0-36.0 [place] [address]-10-23 09:39:00 Test Item Value Reference Range Interpretation Comments RDW (test code = RDW) 12.6 11.5-14.5 [place] 406462-10-23 09:39:00 Test Item Value Reference Range Interpretation Comments Platelet (test code = Platelet) 358 133-450 [place] 406462-10-23 09:39:00 Test Item Value Reference Range Interpretation Comments MPV (test code = MPV) 8.1 7.4-10.4 [place] 118662-10-23 09:39:00 Test Item Value Reference Range Interpretation Comments Ca Ion WB (test code = Ca Ion WB) 1.11 1.05-1.25 [place] 118662-10-23 09:39:00 Test Item Value Reference Range Interpretation Comments Ca Ion at pH 7.4 WB (test code = Ca Ion 1.13 1.05-1.25 at pH 7.4 WB) [place] [address]-10-23 09:39:00 Test Item Value Reference Range Interpretation Comments Neutrophils # (test code = Neutrophils 6.7 1.5-8.1 #) [place] 406462-10-23 09:39:00 Test Item Value Reference Range Interpretation Comments Lymphocytes # (test code = Lymphocytes 2.0 1.0-5.5 #) [place] 406462-10-23 09:39:00 Test Item Value Reference Range Interpretation Comments Monocytes # (test code 0.7 See_Comment [Aut omated message] The = Monocytes #) system which generated this result tra nsmitted reference range : <=0.8. The reference r kyle was not used to int erpret this result as normal/abnormal . [place] 406462-10-23 09:39:00 Test Item Value Reference Range Interpretation Comments Eosinophils # (test code 0.4 See_Comment [A utomated message] The = Eosinophils #) system whic h generated this result tra nsmitted reference range : <=0.5. The reference r kyle was not used to int erpret this result as normal/abnormal . [place] [address]-10-23 09:39:00 Test Item Value Reference Range Interpretation Comments Basophils # (test code 0.1 See_Comment [Aut omated message] The = Basophils #) system which generated this result tra nsmitted reference range : <=0.2. The reference r kyle was not used to int erpret this result as normal/abnormal . [place] 250692-10-23 09:39:00 Test Item Value Reference Range Interpretation Comments Glucose Lvl (test code = Glucose Lvl) 150 70-99 [place] 250692-10-23 09:39:00 Test Item Value Reference Range Interpretation Comments BUN (test code = BUN) 9 7-22 [place] 250692-10-23 09:39:00 Test Item Value Reference Range Interpretation Comments Creatinine Lvl (test code = Creatinine 0.42 0.50-1.40 Lvl) [place] 250692-10-23 09:39:00 Test Item Value Reference Range Interpretation Comments Sodium Lvl (test code = Sodium Lvl) 134 135-145 [place] 250692-10-23 09:39:00 Test Item Value Reference Range Interpretation Comments Potassium Lvl (test code = Potassium 3.3 3.5-5.1 Lvl) [facility]2022-10-23 09:39:00 Test Item Value Reference Range Interpretation Comments Chloride Lvl (test code = Chloride Lvl) 102 95-109 [facility]2022-10-23 09:39:00 Test Item Value Reference Range Interpretation Comments CO2 (test code = CO2) 25 24-32 [place] 250692-10-23 09:39:00 Test Item Value Reference Range Interpretation Comments Calcium Lvl (test code = Calcium Lvl) 8.7 8.5-10.5 [facility]2022-10-23 09:39:00 Test Item Value Reference Range Interpretation Comments AGAP (test code = AGAP) 10.3 10.0-20.0 [place] 250692-10-23 09:39:00 Test Item Value Reference Range Interpretation Comments eGFR (test code = eGFR) 116 [facility]2022-10-23 09:39:00 Test Item Value Reference Range Interpretation Comments Magnesium Lvl (test code = Magnesium 1.9 1.8-2.4 Lvl) [place] 250692-10-23 09:39:00 Test Item Value Reference Range Interpretation Comments Phosphorus (test code = Phosphorus) 2.6 2.5-4.5 [facility] 09:39:00 Test Item Value Reference Range Interpretation Comments Segs (test code = Segs) 68.1 45.0-75.0 [place] [address]-10-23 09:39:00 Test Item Value Reference Range Interpretation Comments Lymphocytes (test code = Lymphocytes) 20.4 20.0-40.0 [place] [address]-10-23 09:39:00 Test Item Value Reference Range Interpretation Comments Monocytes (test code = Monocytes) 6.7 2.0-12.0 [place] [address]-10-23 09:39:00 Test Item Value Reference Range Interpretation Comments Eosinophils (test code = 4.1 See_Comment [A utomated message] The Eosinophils) system which ge nerated this result tra nsmitted reference range : <=4.0. The reference r kyle was not used to int erpret this result as normal/abnormal . [place] [address]-10-23 09:39:00 Test Item Value Reference Range Interpretation Comments Basophils (test code = 0.7 See_Comment [Aut omated message] The Basophils) system which ge nerated this result tra nsmitted reference range : <=1.0. The reference r kyle was not used to int erpret this result as normal/abnormal . [place] [address]-10-23 09:39:00 Test Item Value Reference Range Interpretation Comments Neutrophils # (test code = Neutrophils 6.7 1.5-8.1 #) [place] [address]-10-23 09:39:00 Test Item Value Reference Range Interpretation Comments Lymphocytes # (test code = Lymphocytes 2.0 1.0-5.5 #) [place] [address]-10-23 09:39:00 Test Item Value Reference Range Interpretation Comments Monocytes # (test code 0.7 See_Comment [Aut omated message] The = Monocytes #) system which generated this result tra nsmitted reference range : <=0.8. The reference r kyle was not used to int erpret this result as normal/abnormal . [place] [address]-10-23 09:39:00 Test Item Value Reference Range Interpretation Comments Eosinophils # (test code 0.4 See_Comment [A utomated message] The = Eosinophils #) system wh h generated this result tra nsmitted reference range : <=0.5. The reference r kyle was not used to int erpret this result as normal/abnormal . [place] 406462-10-23 09:39:00 Test Item Value Reference Range Interpretation Comments Basophils # (test code 0.1 See_Comment [Aut omated message] The = Basophils #) system which generated this result tra nsmitted reference range : <=0.2. The reference r kyle was not used to int erpret this result as normal/abnormal . [facility] 09:39:00 Test Item Value Reference Range Interpretation Comments WBC (test code = WBC) 9.9 3.7-10.4 [place] 406462-10-23 09:39:00 Test Item Value Reference Range Interpretation Comments RBC (test code = RBC) 3.05 4.20-5.40 [place] 406462-10-23 09:39:00 Test Item Value Reference Range Interpretation Comments Hgb (test code = Hgb) 8.5 12.0-16.0 [place] 406462-10-23 09:39:00 Test Item Value Reference Range Interpretation Comments Hct (test code = Hct) 25.6 36.0-48.0 [place] [address]-10-23 09:39:00 Test Item Value Reference Range Interpretation Comments MCV (test code = MCV) 83.9 80.0-98.0 [place] 406462-10-23 09:39:00 Test Item Value Reference Range Interpretation Comments MCH (test code = MCH) 27.9 pg 27.0-31.0 [place] 406462-10-23 09:39:00 Test Item Value Reference Range Interpretation Comments MCHC (test code = MCHC) 33.2 32.0-36.0 [place] [address]-10-23 09:39:00 Test Item Value Reference Range Interpretation Comments RDW (test code = RDW) 12.6 11.5-14.5 [place] 406462-10-23 09:39:00 Test Item Value Reference Range Interpretation Comments Platelet (test code = Platelet) 358 133-450 [facility]zufgmuEPCSQHVJIU6603-20-52 09:39:00 Test Item Value Reference Range Interpretation Comments MPV (test code = MPV) 8.1 7.4-10.4 [place] 118662-10-23 09:39:00 Test Item Value Reference Range Interpretation Comments Ca Ion WB (test code = Ca Ion WB) 1.11 1.05-1.25 [place] 118662-10-23 09:39:00 Test Item Value Reference Range Interpretation Comments Ca Ion at pH 7.4 WB (test code = Ca Ion 1.13 1.05-1.25 at pH 7.4 WB) [facility]YpvxwrfHNGBKPGMNT5320-37-05 09:39:00 Test Item Value Reference Range Interpretation Comments WBC (test code = WBC) 9.9 3.7-10.4 [place] 406462-10-23 09:39:00 Test Item Value Reference Range Interpretation Comments RBC (test code = RBC) 3.05 4.20-5.40 [place] 406462-10-23 09:39:00 Test Item Value Reference Range Interpretation Comments Hgb (test code = Hgb) 8.5 12.0-16.0 [place] [address]-10-23 09:39:00 Test Item Value Reference Range Interpretation Comments Hct (test code = Hct) 25.6 36.0-48.0 [place] [address]-10-23 09:39:00 Test Item Value Reference Range Interpretation Comments MCV (test code = MCV) 83.9 80.0-98.0 [place] 250692-10-23 09:39:00 Test Item Value Reference Range Interpretation Comments Glucose Lvl (test code = Glucose Lvl) 150 70-99 [place] 250692-10-23 09:39:00 Test Item Value Reference Range Interpretation Comments BUN (test code = BUN) 9 7-22 [place] 250692-10-23 09:39:00 Test Item Value Reference Range Interpretation Comments Creatinine Lvl (test code = Creatinine 0.42 0.50-1.40 Lvl) [place] 250692-10-23 09:39:00 Test Item Value Reference Range Interpretation Comments Sodium Lvl (test code = Sodium Lvl) 134 135-145 [place] 250692-10-23 09:39:00 Test Item Value Reference Range Interpretation Comments Potassium Lvl (test code = Potassium 3.3 3.5-5.1 Lvl) [place] 250692-10-23 09:39:00 Test Item Value Reference Range Interpretation Comments Chloride Lvl (test code = Chloride Lvl) 102 95-109 [place] 250692-10-23 09:39:00 Test Item Value Reference Range Interpretation Comments CO2 (test code = CO2) 25 24-32 [place] [address]-10-23 09:39:00 Test Item Value Reference Range Interpretation Comments Calcium Lvl (test code = Calcium Lvl) 8.7 8.5-10.5 [place] [address]-10-23 09:39:00 Test Item Value Reference Range Interpretation Comments AGAP (test code = AGAP) 10.3 10.0-20.0 [place] [address]-10-23 09:39:00 Test Item Value Reference Range Interpretation Comments eGFR (test code = eGFR) 116 [place] 250692-10-23 09:39:00 Test Item Value Reference Range Interpretation Comments Magnesium Lvl (test code = Magnesium 1.9 1.8-2.4 Lvl) [place] [address]-10-23 09:39:00 Test Item Value Reference Range Interpretation Comments Phosphorus (test code = Phosphorus) 2.6 2.5-4.5 [place] [address]-10-23 09:39:00 Test Item Value Reference Range Interpretation Comments Segs (test code = Segs) 68.1 45.0-75.0 [place] [address]-10-23 09:39:00 Test Item Value Reference Range Interpretation Comments Lymphocytes (test code = Lymphocytes) 20.4 20.0-40.0 [place] [address]-10-23 09:39:00 Test Item Value Reference Range Interpretation Comments Monocytes (test code = Monocytes) 6.7 2.0-12.0 [place] [address]-10-23 09:39:00 Test Item Value Reference Range Interpretation Comments Eosinophils (test code = 4.1 See_Comment [A utomated message] The Eosinophils) system which ge nerated this result tra nsmitted reference range : <=4.0. The reference r kyle was not used to int erpret this result as normal/abnormal . [place] 406462-10-23 09:39:00 Test Item Value Reference Range Interpretation Comments Basophils (test code = 0.7 See_Comment [Aut omated message] The Basophils) system which ge nerated this result tra nsmitted reference range : <=1.0. The reference r kyle was not used to int erpret this result as normal/abnormal . [place] 406462-10-23 09:39:00 Test Item Value Reference Range Interpretation Comments Neutrophils # (test code = Neutrophils 6.7 1.5-8.1 #) [place] 406462-10-23 09:39:00 Test Item Value Reference Range Interpretation Comments Lymphocytes # (test code = Lymphocytes 2.0 1.0-5.5 #) [place] 406462-10-23 09:39:00 Test Item Value Reference Range Interpretation Comments Monocytes # (test code 0.7 See_Comment [Aut omated message] The = Monocytes #) system which generated this result tra nsmitted reference range : <=0.8. The reference r kyle was not used to int erpret this result as normal/abnormal . [place] 406462-10-23 09:39:00 Test Item Value Reference Range Interpretation Comments Eosinophils # (test code 0.4 See_Comment [A utomated message] The = Eosinophils #) system whic h generated this result tra nsmitted reference range : <=0.5. The reference r kyle was not used to int erpret this result as normal/abnormal . [place] 406462-10-23 09:39:00 Test Item Value Reference Range Interpretation Comments Basophils # (test code 0.1 See_Comment [Aut omated message] The = Basophils #) system which generated this result tra nsmitted reference range : <=0.2. The reference r kyle was not used to int erpret this result as normal/abnormal . [facility] HospitalRugybjgBHPBIVKCYA4586-56-18 09:39:00 Test Item Value Reference Range Interpretation Comments WBC (test code = WBC) 9.9 3.7-10.4 [place] 406462-10-23 09:39:00 Test Item Value Reference Range Interpretation Comments RBC (test code = RBC) 3.05 4.20-5.40 [place] 406462-10-23 09:39:00 Test Item Value Reference Range Interpretation Comments Hgb (test code = Hgb) 8.5 12.0-16.0 [place] 406462-10-23 09:39:00 Test Item Value Reference Range Interpretation Comments Hct (test code = Hct) 25.6 36.0-48.0 [facility] HospitalJbotnztAMVMOTMNNH6744-49-03 09:39:00 Test Item Value Reference Range Interpretation Comments MCV (test code = MCV) 83.9 80.0-98.0 [place] 406462-10-23 09:39:00 Test Item Value Reference Range Interpretation Comments MCH (test code = MCH) 27.9 pg 27.0-31.0 [place] [address]-10-23 09:39:00 Test Item Value Reference Range Interpretation Comments MCHC (test code = MCHC) 33.2 32.0-36.0 [facility] HospitalEmpnxnyADVQMHQZMG9138-64-28 09:39:00 Test Item Value Reference Range Interpretation Comments RDW (test code = RDW) 12.6 11.5-14.5 [facility] HospitalHvitsxmSDUDLAWTEG0873-99-04 09:39:00 Test Item Value Reference Range Interpretation Comments Platelet (test code = Platelet) 358 133-450 [facility] HospitalOgbpldaBQGMNDCGSH9254-43-86 09:39:00 Test Item Value Reference Range Interpretation Comments MPV (test code = MPV) 8.1 7.4-10.4 [facility]2022-10-23 09:39:00 Test Item Value Reference Range Interpretation Comments Ca Ion WB (test code = Ca Ion WB) 1.11 1.05-1.25 [place] 118662-10-23 09:39:00 Test Item Value Reference Range Interpretation Comments Ca Ion at pH 7.4 WB (test code = Ca Ion 1.13 1.05-1.25 at pH 7.4 WB) [facility] HospitalUuqqcbbGDWRMZTOWR6736-31-27 09:39:00 Test Item Value Reference Range Interpretation Comments MCH (test code = MCH) 27.9 pg 27.0-31.0 [place] 406462-10-23 09:39:00 Test Item Value Reference Range Interpretation Comments MCHC (test code = MCHC) 33.2 32.0-36.0 [place] 406462-10-23 09:39:00 Test Item Value Reference Range Interpretation Comments RDW (test code = RDW) 12.6 11.5-14.5 [facility]mft[facility]fSMKWEWWNIQ7023[facility]98-78 09:39:00 Test Item Value Reference Range Interpretation Comments Platelet (test code = Platelet) 358 133-450 [place] 250692-10-23 09:39:00 Test Item Value Reference Range Interpretation Comments Glucose Lvl (test code = Glucose Lvl) 150 70-99 [place] 250692-10-23 09:39:00 Test Item Value Reference Range Interpretation Comments BUN (test code = BUN) 9 7-22 [place] 250692-10-23 09:39:00 Test Item Value Reference Range Interpretation Comments Creatinine Lvl (test code = Creatinine 0.42 0.50-1.40 Lvl) [place] 250692-10-23 09:39:00 Test Item Value Reference Range Interpretation Comments Sodium Lvl (test code = Sodium Lvl) 134 135-145 [place] 250692-10-23 09:39:00 Test Item Value Reference Range Interpretation Comments Potassium Lvl (test code = Potassium 3.3 3.5-5.1 Lvl) [place] 250692-10-23 09:39:00 Test Item Value Reference Range Interpretation Comments Chloride Lvl (test code = Chloride Lvl) 102 95-109 [facility]2022-10-23 09:39:00 Test Item Value Reference Range Interpretation Comments CO2 (test code = CO2) 25 24-32 [place] 250692-10-23 09:39:00 Test Item Value Reference Range Interpretation Comments Calcium Lvl (test code = Calcium Lvl) 8.7 8.5-10.5 [place] 250692-10-23 09:39:00 Test Item Value Reference Range Interpretation Comments AGAP (test code = AGAP) 10.3 10.0-20.0 [place] 250692-10-23 09:39:00 Test Item Value Reference Range Interpretation Comments eGFR (test code = eGFR) 116 [place] 250692-10-23 09:39:00 Test Item Value Reference Range Interpretation Comments Magnesium Lvl (test code = Magnesium 1.9 1.8-2.4 Lvl) [place] 250692-10-23 09:39:00 Test Item Value Reference Range Interpretation Comments Phosphorus (test code = Phosphorus) 2.6 2.5-4.5 [place] 406462-10-23 09:39:00 Test Item Value Reference Range Interpretation Comments Segs (test code = Segs) 68.1 45.0-75.0 [facility] HospitalFzkbdqbHVCBNFYBLJ0297-88-70 09:39:00 Test Item Value Reference Range Interpretation Comments Lymphocytes (test code = Lymphocytes) 20.4 20.0-40.0 [place] 406462-10-23 09:39:00 Test Item Value Reference Range Interpretation Comments Monocytes (test code = Monocytes) 6.7 2.0-12.0 [place] 406462-10-23 09:39:00 Test Item Value Reference Range Interpretation Comments Eosinophils (test code = 4.1 See_Comment [A utomated message] The Eosinophils) system which ge nerated this result tra nsmitted reference range : <=4.0. The reference r kyle was not used to int erpret this result as normal/abnormal . [facility] HospitalBkzmsydQXSVVARJML4879-14-61 09:39:00 Test Item Value Reference Range Interpretation Comments MPV (test code = MPV) 8.1 7.4-10.4 [place] 406462-10-23 09:39:00 Test Item Value Reference Range Interpretation Comments Basophils (test code = 0.7 See_Comment [Aut omated message] The Basophils) system which ge nerated this result tra nsmitted reference range : <=1.0. The reference r kyle was not used to int erpret this result as normal/abnormal . [facility] HospitalXrasosyZYNQWMDLSI0776-39-04 09:39:00 Test Item Value Reference Range Interpretation Comments Neutrophils # (test code = Neutrophils 6.7 1.5-8.1 #) [place] [address]-10-23 09:39:00 Test Item Value Reference Range Interpretation Comments Lymphocytes # (test code = Lymphocytes 2.0 1.0-5.5 #) [place] [address]-10-23 09:39:00 Test Item Value Reference Range Interpretation Comments Monocytes # (test code 0.7 See_Comment [Aut omated message] The = Monocytes #) system which generated this result tra nsmitted reference range : <=0.8. The reference r kyle was not used to int erpret this result as normal/abnormal . [facility] HospitalUjigzmvUHVWTMBLMN3143-31-27 09:39:00 Test Item Value Reference Range Interpretation Comments Eosinophils # (test code 0.4 See_Comment [A utomated message] The = Eosinophils #) system whic h generated this result tra nsmitted reference range : <=0.5. The reference r kyle was not used to int erpret this result as normal/abnormal . [facility] HospitalHyuvppqROZLFNVJHM0926-61-61 09:39:00 Test Item Value Reference Range Interpretation Comments Basophils # (test code 0.1 See_Comment [Aut omated message] The = Basophils #) system which generated this result tra nsmitted reference range : <=0.2. The reference r kyle was not used to int erpret this result as normal/abnormal . [facility] HospitalZjonkggATZASMSNLJ6979-54-31 09:39:00 Test Item Value Reference Range Interpretation Comments WBC (test code = WBC) 9.9 3.7-10.4 [place] 406462-10-23 09:39:00 Test Item Value Reference Range Interpretation Comments RBC (test code = RBC) 3.05 4.20-5.40 [facility] HospitalKhzyndhHDYPMZKFYC1537-49-53 09:39:00 Test Item Value Reference Range Interpretation Comments Hgb (test code = Hgb) 8.5 12.0-16.0 [place] 406462-10-23 09:39:00 Test Item Value Reference Range Interpretation Comments Hct (test code = Hct) 25.6 36.0-48.0 [place] 406462-10-23 09:39:00 Test Item Value Reference Range Interpretation Comments MCV (test code = MCV) 83.9 80.0-98.0 [place] [address]-10-23 09:39:00 Test Item Value Reference Range Interpretation Comments MCH (test code = MCH) 27.9 pg 27.0-31.0 [facility] HospitalHrvxhwiCZXTGNNIYH9625-94-18 09:39:00 Test Item Value Reference Range Interpretation Comments MCHC (test code = MCHC) 33.2 32.0-36.0 [place] 406462-10-23 09:39:00 Test Item Value Reference Range Interpretation Comments RDW (test code = RDW) 12.6 11.5-14.5 [place] [address]-10-23 09:39:00 Test Item Value Reference Range Interpretation Comments Platelet (test code = Platelet) 358 133-450 [place] 406462-10-23 09:39:00 Test Item Value Reference Range Interpretation Comments MPV (test code = MPV) 8.1 7.4-10.4 [place] 118662-10-23 09:39:00 Test Item Value Reference Range Interpretation Comments Ca Ion WB (test code = Ca Ion WB) 1.11 1.05-1.25 [address]10-23 09:39:00 Test Item Value Reference Range Interpretation Comments Ca Ion at pH 7.4 WB (test code = Ca Ion 1.13 1.05-1.25 at pH 7.4 WB) [place] 118662-10-23 09:39:00 Test Item Value Reference Range Interpretation Comments Ca Ion WB (test code = Ca Ion WB) 1.11 1.05-1.25 [place] 250692-10-23 09:39:00 Test Item Value Reference Range Interpretation Comments Glucose Lvl (test code = Glucose Lvl) 150 70-99 [place] 250692-10-23 09:39:00 Test Item Value Reference Range Interpretation Comments BUN (test code = BUN) 9 7-22 [place] 250692-10-23 09:39:00 Test Item Value Reference Range Interpretation Comments Creatinine Lvl (test code = Creatinine 0.42 0.50-1.40 Lvl) [place] 250692-10-23 09:39:00 Test Item Value Reference Range Interpretation Comments Sodium Lvl (test code = Sodium Lvl) 134 135-145 [place] 250692-10-23 09:39:00 Test Item Value Reference Range Interpretation Comments Potassium Lvl (test code = Potassium 3.3 3.5-5.1 Lvl) [place] 250692-10-23 09:39:00 Test Item Value Reference Range Interpretation Comments Chloride Lvl (test code = Chloride Lvl) 102 95-109 [place] 250692-10-23 09:39:00 Test Item Value Reference Range Interpretation Comments CO2 (test code = CO2) 25 24-32 [facility]PARATHYROID OYUPEUT6393-91-15 09:39:00 Test Item Value Reference Range Interpretation Comments Ca Ion at pH 7.4 WB (test code = Ca Ion 1.13 1.05-1.25 at pH 7.4 WB) [facility] CenterCHEM FGWSR6976-42-04 09:39:00 Test Item Value Reference Range Interpretation Comments Calcium Lvl (test code = Calcium Lvl) 8.7 8.5-10.5 [facility]2022-10-23 09:39:00 Test Item Value Reference Range Interpretation Comments AGAP (test code = AGAP) 10.3 10.0-20.0 [facility]2022-10-23 09:39:00 Test Item Value Reference Range Interpretation Comments eGFR (test code = eGFR) 116 [facility]2022-10-23 09:39:00 Test Item Value Reference Range Interpretation Comments Magnesium Lvl (test code = Magnesium 1.9 1.8-2.4 Lvl) [facility]2022-10-23 09:39:00 Test Item Value Reference Range Interpretation Comments Phosphorus (test code = Phosphorus) 2.6 2.5-4.5 [facility] HospitalBemshvpDNVCVSVLYK0712-52-76 09:39:00 Test Item Value Reference Range Interpretation Comments Segs (test code = Segs) 68.1 45.0-75.0 [place] 406462-10-23 09:39:00 Test Item Value Reference Range Interpretation Comments Lymphocytes (test code = Lymphocytes) 20.4 20.0-40.0 [place] 406462-10-23 09:39:00 Test Item Value Reference Range Interpretation Comments Monocytes (test code = Monocytes) 6.7 2.0-12.0 [place] [address]-10-23 09:39:00 Test Item Value Reference Range Interpretation Comments Eosinophils (test code = 4.1 See_Comment [A utomated message] The Eosinophils) system which ge nerated this result tra nsmitted reference range : <=4.0. The reference r kyle was not used to int erpret this result as normal/abnormal . [facility] HospitalSsgyfgnVENXXZTEQG9423-95-48 09:39:00 Test Item Value Reference Range Interpretation Comments Basophils (test code = 0.7 See_Comment [Aut omated message] The Basophils) system which ge nerated this result tra nsmitted reference range : <=1.0. The reference r kyle was not used to int erpret this result as normal/abnormal . [place] 406462-10-23 09:39:00 Test Item Value Reference Range Interpretation Comments Neutrophils # (test code = Neutrophils 6.7 1.5-8.1 #) [facility]XHT5161[facility]64-93 09:39:00 Test Item Value Reference Range Interpretation Comments Lymphocytes # (test code = Lymphocytes 2.0 1.0-5.5 #) [place] 406462-10-23 09:39:00 Test Item Value Reference Range Interpretation Comments Monocytes # (test code 0.7 See_Comment [Aut omated message] The = Monocytes #) system which generated this result tra nsmitted reference range : <=0.8. The reference r kyle was not used to int erpret this result as normal/abnormal . [facility]AxtvdlkQYXAVGKCSK4796-72-43 09:39:00 Test Item Value Reference Range Interpretation Comments Eosinophils # (test code 0.4 See_Comment [A utomated message] The = Eosinophils #) system whic h generated this result tra nsmitted reference range : <=0.5. The reference r kyle was not used to int erpret this result as normal/abnormal . [facility] HospitalMvbdkarODPFWWDCSM8409-97-01 09:39:00 Test Item Value Reference Range Interpretation Comments Basophils # (test code 0.1 See_Comment [Aut omated message] The = Basophils #) system which generated this result tra nsmitted reference range : <=0.2. The reference r kyle was not used to int erpret this result as normal/abnormal . [facility]UbbhxdrPPIXGVJUKK1261-94-33 09:39:00 Test Item Value Reference Range Interpretation Comments WBC (test code = WBC) 9.9 3.7-10.4 [place] 406462-10-23 09:39:00 Test Item Value Reference Range Interpretation Comments RBC (test code = RBC) 3.05 4.20-5.40 [place] 406462-10-23 09:39:00 Test Item Value Reference Range Interpretation Comments Hgb (test code = Hgb) 8.5 12.0-16.0 [place] [address]-10-23 09:39:00 Test Item Value Reference Range Interpretation Comments Hct (test code = Hct) 25.6 36.0-48.0 [place] 406462-10-23 09:39:00 Test Item Value Reference Range Interpretation Comments MCV (test code = MCV) 83.9 80.0-98.0 [place] 406462-10-23 09:39:00 Test Item Value Reference Range Interpretation Comments MCH (test code = MCH) 27.9 pg 27.0-31.0 [place] 406462-10-23 09:39:00 Test Item Value Reference Range Interpretation Comments MCHC (test code = MCHC) 33.2 32.0-36.0 [facility] HospitalBzzqxvjNRDUAZBWCL2781-84-81 09:39:00 Test Item Value Reference Range Interpretation Comments RDW (test code = RDW) 12.6 11.5-14.5 [place] 406462-10-23 09:39:00 Test Item Value Reference Range Interpretation Comments Platelet (test code = Platelet) 358 133-450 [facility] HospitalNfozpneBEUOLHZACB8414-60-87 09:39:00 Test Item Value Reference Range Interpretation Comments MPV (test code = MPV) 8.1 7.4-10.4 [facility]2022-10-23 09:39:00 Test Item Value Reference Range Interpretation Comments Ca Ion WB (test code = Ca Ion WB) 1.11 1.05-1.25 [place] 118662-10-23 09:39:00 Test Item Value Reference Range Interpretation Comments Ca Ion at pH 7.4 WB (test code = Ca Ion 1.13 1.05-1.25 at pH 7.4 WB) [facility]2022-10-23 09:39:00 Test Item Value Reference Range Interpretation Comments Glucose Lvl (test code = Glucose Lvl) 150 70-99 [facility]2022-10-23 09:39:00 Test Item Value Reference Range Interpretation Comments BUN (test code = BUN) 9 7-22 [facility]2022-10-23 09:39:00 Test Item Value Reference Range Interpretation Comments Creatinine Lvl (test code = Creatinine 0.42 0.50-1.40 Lvl) [place] 250692-10-23 09:39:00 Test Item Value Reference Range Interpretation Comments Sodium Lvl (test code = Sodium Lvl) 134 135-145 [place] 250692-10-23 09:39:00 Test Item Value Reference Range Interpretation Comments Potassium Lvl (test code = Potassium 3.3 3.5-5.1 Lvl) [place] 250692-10-23 09:39:00 Test Item Value Reference Range Interpretation Comments Chloride Lvl (test code = Chloride Lvl) 102 95-109 [place] 250692-10-23 09:39:00 Test Item Value Reference Range Interpretation Comments CO2 (test code = CO2) 25 24-32 [place] 250692-10-23 09:39:00 Test Item Value Reference Range Interpretation Comments Calcium Lvl (test code = Calcium Lvl) 8.7 8.5-10.5 [place] 250692-10-23 09:39:00 Test Item Value Reference Range Interpretation Comments AGAP (test code = AGAP) 10.3 10.0-20.0 [place] 250692-10-23 09:39:00 Test Item Value Reference Range Interpretation Comments eGFR (test code = eGFR) 116 [place] 250692-10-23 09:39:00 Test Item Value Reference Range Interpretation Comments Magnesium Lvl (test code = Magnesium 1.9 1.8-2.4 Lvl) [place] 250692-10-23 09:39:00 Test Item Value Reference Range Interpretation Comments Phosphorus (test code = Phosphorus) 2.6 2.5-4.5 [place] [address]-10-23 09:39:00 Test Item Value Reference Range Interpretation Comments Segs (test code = Segs) 68.1 45.0-75.0 [place] [address]-10-23 09:39:00 Test Item Value Reference Range Interpretation Comments Lymphocytes (test code = Lymphocytes) 20.4 20.0-40.0 [place] [address]-10-23 09:39:00 Test Item Value Reference Range Interpretation Comments Monocytes (test code = Monocytes) 6.7 2.0-12.0 [place] [address]-10-23 09:39:00 Test Item Value Reference Range Interpretation Comments Eosinophils (test code = 4.1 See_Comment [A utomated message] The Eosinophils) system which ge nerated this result tra nsmitted reference range : <=4.0. The reference r kyle was not used to int erpret this result as normal/abnormal . [place] [address]-10-23 09:39:00 Test Item Value Reference Range Interpretation Comments Basophils (test code = 0.7 See_Comment [Aut omated message] The Basophils) system which ge nerated this result tra nsmitted reference range : <=1.0. The reference r kyle was not used to int erpret this result as normal/abnormal . [place] [address]-10-23 09:39:00 Test Item Value Reference Range Interpretation Comments Neutrophils # (test code = Neutrophils 6.7 1.5-8.1 #) [address]10-23 09:39:00 Test Item Value Reference Range Interpretation Comments Lymphocytes # (test code = Lymphocytes 2.0 1.0-5.5 #) [address]10-23 09:39:00 Test Item Value Reference Range Interpretation Comments Monocytes # (test code 0.7 See_Comment [Aut omated message] The = Monocytes #) system which generated this result tra nsmitted reference range : <=0.8. The reference r kyle was not used to int erpret this result as normal/abnormal . [place] [address]-10-23 09:39:00 Test Item Value Reference Range Interpretation Comments Eosinophils # (test code 0.4 See_Comment [A utomated message] The = Eosinophils #) system wh h generated this result tra nsmitted reference range : <=0.5. The reference r kyle was not used to int erpret this result as normal/abnormal . [place] [address]-10-23 09:39:00 Test Item Value Reference Range Interpretation Comments Basophils # (test code 0.1 See_Comment [Aut omated message] The = Basophils #) system which generated this result tra nsmitted reference range : <=0.2. The reference r kyle was not used to int erpret this result as normal/abnormal . [place] [address]-10-23 09:39:00 Test Item Value Reference Range Interpretation Comments WBC (test code = WBC) 9.9 3.7-10.4 [facility]OeocuyoXRXPSQFRZV6319-06-80 09:39:00 Test Item Value Reference Range Interpretation Comments RBC (test code = RBC) 3.05 4.20-5.40 [facility] CenterGllxcloJHYITJMTPP6983-03-06 09:39:00 Test Item Value Reference Range Interpretation Comments Hgb (test code = Hgb) 8.5 12.0-16.0 [facility] HospitalQjvaqigXDRGPDPTAU3151-99-25 09:39:00 Test Item Value Reference Range Interpretation Comments Hct (test code = Hct) 25.6 36.0-48.0 [facility] CenterGwzdtsvOIAJODPURE8992-44-49 09:39:00 Test Item Value Reference Range Interpretation Comments MCV (test code = MCV) 83.9 80.0-98.0 [facility]CH[facility]HP5943[facility]-63 09:39:00 Test Item Value Reference Range Interpretation Comments MCH (test code = MCH) 27.9 pg 27.0-31.0 [facility] HospitalZmuaksiHKBEFLHZJF0485-28-07 09:39:00 Test Item Value Reference Range Interpretation Comments MCHC (test code = MCHC) 33.2 32.0-36.0 [facility] HospitalIeueelnMPWISHCCGK2936-59-09 09:39:00 Test Item Value Reference Range Interpretation Comments RDW (test code = RDW) 12.6 11.5-14.5 [facility] HospitalIfwoikdWNIAUIZIOM6229-57-83 09:39:00 Test Item Value Reference Range Interpretation Comments Platelet (test code = Platelet) 358 133-450 [facility] HospitalYfbtmowTHWABRCMNX7412-72-47 09:39:00 Test Item Value Reference Range Interpretation Comments MPV (test code = MPV) 8.1 7.4-10.4 [facility] CenterPARATHYROID UTNLABR7460-82-49 09:39:00 Test Item Value Reference Range Interpretation Comments Ca Ion WB (test code = Ca Ion WB) 1.11 1.05-1.25 [facility]RO[facility] CGCLPST4045-83-33 09:39:00 Test Item Value Reference Range Interpretation Comments Ca Ion at pH 7.4 WB (test code = Ca Ion 1.13 1.05-1.25 at pH 7.4 WB) [facility]2022-10-23 09:39:00 Test Item Value Reference Range Interpretation Comments Glucose Lvl (test code = Glucose Lvl) 150 70-99 [place] 250692-10-23 09:39:00 Test Item Value Reference Range Interpretation Comments BUN (test code = BUN) 9 7-22 [place] 250692-10-23 09:39:00 Test Item Value Reference Range Interpretation Comments Creatinine Lvl (test code = Creatinine 0.42 0.50-1.40 Lvl) [place] 250692-10-23 09:39:00 Test Item Value Reference Range Interpretation Comments Sodium Lvl (test code = Sodium Lvl) 134 135-145 [place] 250692-10-23 09:39:00 Test Item Value Reference Range Interpretation Comments Potassium Lvl (test code = Potassium 3.3 3.5-5.1 Lvl) [place] 250692-10-23 09:39:00 Test Item Value Reference Range Interpretation Comments Chloride Lvl (test code = Chloride Lvl) 102 95-109 [place] 250692-10-23 09:39:00 Test Item Value Reference Range Interpretation Comments CO2 (test code = CO2) 25 24-32 [place] 250692-10-23 09:39:00 Test Item Value Reference Range Interpretation Comments Calcium Lvl (test code = Calcium Lvl) 8.7 8.5-10.5 [place] 250692-10-23 09:39:00 Test Item Value Reference Range Interpretation Comments AGAP (test code = AGAP) 10.3 10.0-20.0 [place] 250692-10-23 09:39:00 Test Item Value Reference Range Interpretation Comments eGFR (test code = eGFR) 116 [place] 250692-10-23 09:39:00 Test Item Value Reference Range Interpretation Comments Magnesium Lvl (test code = Magnesium 1.9 1.8-2.4 Lvl) [place] 250692-10-23 09:39:00 Test Item Value Reference Range Interpretation Comments Phosphorus (test code = Phosphorus) 2.6 2.5-4.5 [place] 406462-10-23 09:39:00 Test Item Value Reference Range Interpretation Comments Segs (test code = Segs) 68.1 45.0-75.0 [place] 406462-10-23 09:39:00 Test Item Value Reference Range Interpretation Comments Lymphocytes (test code = Lymphocytes) 20.4 20.0-40.0 [place] 406462-10-23 09:39:00 Test Item Value Reference Range Interpretation Comments Monocytes (test code = Monocytes) 6.7 2.0-12.0 [place] 406462-10-23 09:39:00 Test Item Value Reference Range Interpretation Comments Eosinophils (test code = 4.1 See_Comment [A utomated message] The Eosinophils) system which ge nerated this result tra nsmitted reference range : <=4.0. The reference r kyle was not used to int erpret this result as normal/abnormal . [facility] HospitalWlfjjprXACPEOHQLE5935-03-39 09:39:00 Test Item Value Reference Range Interpretation Comments Basophils (test code = 0.7 See_Comment [Aut omated message] The Basophils) system which ge nerated this result tra nsmitted reference range : <=1.0. The reference r kyle was not used to int erpret this result as normal/abnormal . [facility] HospitalPppodkzTZNEHGFADX7602-61-87 09:39:00 Test Item Value Reference Range Interpretation Comments Neutrophils # (test code = Neutrophils 6.7 1.5-8.1 #) [facility] HospitalUyjpmpuARNVCDJJSX3766-39-45 09:39:00 Test Item Value Reference Range Interpretation Comments Lymphocytes # (test code = Lymphocytes 2.0 1.0-5.5 #) [facility] HospitalXhllnvtLOBVIDRKGS2740-27-13 09:39:00 Test Item Value Reference Range Interpretation Comments Monocytes # (test code 0.7 See_Comment [Aut omated message] The = Monocytes #) system which generated this result tra nsmitted reference range : <=0.8. The reference r kyle was not used to int erpret this result as normal/abnormal . [facility] HospitalQizqidkCBSNJWHDGU4274-30-58 09:39:00 Test Item Value Reference Range Interpretation Comments Eosinophils # (test code 0.4 See_Comment [A utomated message] The = Eosinophils #) system ic h generated this result tra nsmitted reference range : <=0.5. The reference r kyle was not used to int erpret this result as normal/abnormal . [facility] HospitalMdisbjtCIDLKENVIU7146-10-98 09:39:00 Test Item Value Reference Range Interpretation Comments Basophils # (test code 0.1 See_Comment [Aut omated message] The = Basophils #) system which generated this result tra nsmitted reference range : <=0.2. The reference r kyle was not used to int erpret this result as normal/abnormal . [facility] HospitalSiwozqgUKDXXVDNEA4255-19-03 09:39:00 Test Item Value Reference Range Interpretation Comments WBC (test code = WBC) 9.9 3.7-10.4 [facility] HospitalDaxbkitBQCRJNDEHM8596-93-53 09:39:00 Test Item Value Reference Range Interpretation Comments RBC (test code = RBC) 3.05 4.20-5.40 [facility] HospitalUfgqwjhJTWWPAKCJZ6874-87-29 09:39:00 Test Item Value Reference Range Interpretation Comments Hgb (test code = Hgb) 8.5 12.0-16.0 [facility] HospitalUsmieyvNJYDJHGMRM4298-18-27 09:39:00 Test Item Value Reference Range Interpretation Comments Hct (test code = Hct) 25.6 36.0-48.0 [facility] HospitalTnzdiprITKUATIOTI2192-88-96 09:39:00 Test Item Value Reference Range Interpretation Comments MCV (test code = MCV) 83.9 80.0-98.0 [facility] HospitalGepirquVZIXSNHSFC7861-84-15 09:39:00 Test Item Value Reference Range Interpretation Comments MCH (test code = MCH) 27.9 pg 27.0-31.0 [facility] HospitalNcczwdeIGDTGCALKV7126-40-53 09:39:00 Test Item Value Reference Range Interpretation Comments MCHC (test code = MCHC) 33.2 32.0-36.0 [facility] HospitalTatfefgFBUQPUBOQX1233-88-23 09:39:00 Test Item Value Reference Range Interpretation Comments RDW (test code = RDW) 12.6 11.5-14.5 [facility] HospitalMazmkgxXEINPUIZBZ6788-23-66 09:39:00 Test Item Value Reference Range Interpretation Comments Platelet (test code = Platelet) 358 133-450 [facility] HospitalCouxcfkFBSYEPYQKJ4897-27-95 09:39:00 Test Item Value Reference Range Interpretation Comments MPV (test code = MPV) 8.1 7.4-10.4 [facility] CenterPARATHYROID EJOQBNY4393-79-47 09:39:00 Test Item Value Reference Range Interpretation Comments Ca Ion WB (test code = Ca Ion WB) 1.11 1.05-1.25 [facility] CenterPARATHYROID LQYZJAI9874-90-98 09:39:00 Test Item Value Reference Range Interpretation Comments Ca Ion at pH 7.4 WB (test code = Ca Ion 1.13 1.05-1.25 at pH 7.4 WB) [place] 250692-10-23 09:39:00 Test Item Value Reference Range Interpretation Comments Glucose Lvl (test code = Glucose Lvl) 150 70-99 [place] 250692-10-23 09:39:00 Test Item Value Reference Range Interpretation Comments BUN (test code = BUN) 9 7-22 [place] 250692-10-23 09:39:00 Test Item Value Reference Range Interpretation Comments Creatinine Lvl (test code = Creatinine 0.42 0.50-1.40 Lvl) [place] 250692-10-23 09:39:00 Test Item Value Reference Range Interpretation Comments Sodium Lvl (test code = Sodium Lvl) 134 135-145 [facility]2022-10-23 09:39:00 Test Item Value Reference Range Interpretation Comments Potassium Lvl (test code = Potassium 3.3 3.5-5.1 Lvl) [place] 250692-10-23 09:39:00 Test Item Value Reference Range Interpretation Comments Chloride Lvl (test code = Chloride Lvl) 102 95-109 [facility]2022-10-23 09:39:00 Test Item Value Reference Range Interpretation Comments CO2 (test code = CO2) 25 24-32 [facility]2022-10-23 09:39:00 Test Item Value Reference Range Interpretation Comments Calcium Lvl (test code = Calcium Lvl) 8.7 8.5-10.5 [place] 250692-10-23 09:39:00 Test Item Value Reference Range Interpretation Comments AGAP (test code = AGAP) 10.3 10.0-20.0 [place] 250692-10-23 09:39:00 Test Item Value Reference Range Interpretation Comments eGFR (test code = eGFR) 116 [place] 250692-10-23 09:39:00 Test Item Value Reference Range Interpretation Comments Magnesium Lvl (test code = Magnesium 1.9 1.8-2.4 Lvl) [place] 250692-10-23 09:39:00 Test Item Value Reference Range Interpretation Comments Phosphorus (test code = Phosphorus) 2.6 2.5-4.5 [place] [address]-10-23 09:39:00 Test Item Value Reference Range Interpretation Comments Segs (test code = Segs) 68.1 45.0-75.0 [place] [address]-10-23 09:39:00 Test Item Value Reference Range Interpretation Comments Lymphocytes (test code = Lymphocytes) 20.4 20.0-40.0 [place] [address]-10-23 09:39:00 Test Item Value Reference Range Interpretation Comments Monocytes (test code = Monocytes) 6.7 2.0-12.0 [place] [address]-10-23 09:39:00 Test Item Value Reference Range Interpretation Comments Eosinophils (test code = 4.1 See_Comment [A utomated message] The Eosinophils) system which ge nerated this result tra nsmitted reference range : <=4.0. The reference r kyle was not used to int erpret this result as normal/abnormal . [place] [address]-10-23 09:39:00 Test Item Value Reference Range Interpretation Comments Basophils (test code = 0.7 See_Comment [Aut omated message] The Basophils) system which ge nerated this result tra nsmitted reference range : <=1.0. The reference r kyle was not used to int erpret this result as normal/abnormal . [place] [address]-10-23 09:39:00 Test Item Value Reference Range Interpretation Comments Neutrophils # (test code = Neutrophils 6.7 1.5-8.1 #) [place] [address]-10-23 09:39:00 Test Item Value Reference Range Interpretation Comments Lymphocytes # (test code = Lymphocytes 2.0 1.0-5.5 #) [address]10-23 09:39:00 Test Item Value Reference Range Interpretation Comments Monocytes # (test code 0.7 See_Comment [Aut omated message] The = Monocytes #) system which generated this result tra nsmitted reference range : <=0.8. The reference r kyle was not used to int erpret this result as normal/abnormal . [place] [address]-10-23 09:39:00 Test Item Value Reference Range Interpretation Comments Eosinophils # (test code 0.4 See_Comment [A utomated message] The = Eosinophils #) system whic h generated this result tra nsmitted reference range : <=0.5. The reference r kyle was not used to int erpret this result as normal/abnormal . [facility] HospitalOhjzkhvZGWNWAFZDQ2546-11-80 09:39:00 Test Item Value Reference Range Interpretation Comments Basophils # (test code 0.1 See_Comment [Aut omated message] The = Basophils #) system which generated this result tra nsmitted reference range : <=0.2. The reference r kyle was not used to int erpret this result as normal/abnormal . [facility] HospitalBranopxPXDXRPCSGV6817-06-31 09:39:00 Test Item Value Reference Range Interpretation Comments WBC (test code = WBC) 9.9 3.7-10.4 [facility] HospitalOoojhweOWMJISRBBN5869-27-95 09:39:00 Test Item Value Reference Range Interpretation Comments RBC (test code = RBC) 3.05 4.20-5.40 [facility] HospitalTdurdcfWDXMDLUKRF5723-14-40 09:39:00 Test Item Value Reference Range Interpretation Comments Hgb (test code = Hgb) 8.5 12.0-16.0 [facility] HospitalGtdeppyPDFZWLVYVT5408-20-07 09:39:00 Test Item Value Reference Range Interpretation Comments Hct (test code = Hct) 25.6 36.0-48.0 [place] 406462-10-23 09:39:00 Test Item Value Reference Range Interpretation Comments MCV (test code = MCV) 83.9 80.0-98.0 [place] [address]-10-23 09:39:00 Test Item Value Reference Range Interpretation Comments MCH (test code = MCH) 27.9 pg 27.0-31.0 [place] 406462-10-23 09:39:00 Test Item Value Reference Range Interpretation Comments MCHC (test code = MCHC) 33.2 32.0-36.0 [place] 406462-10-23 09:39:00 Test Item Value Reference Range Interpretation Comments RDW (test code = RDW) 12.6 11.5-14.5 [place] 406462-10-23 09:39:00 Test Item Value Reference Range Interpretation Comments Platelet (test code = Platelet) 358 133-450 [facility] CenterQuxhsleUPLSZDKBVC0114-28-11 09:39:00 Test Item Value Reference Range Interpretation Comments MPV (test code = MPV) 8.1 7.4-10.4 [facility] XVPYAPJ6862-73-34 09:39:00 Test Item Value Reference Range Interpretation Comments Ca Ion WB (test code = Ca Ion WB) 1.11 1.05-1.25 [place] 118662-10-23 09:39:00 Test Item Value Reference Range Interpretation Comments Ca Ion at pH 7.4 WB (test code = Ca Ion 1.13 1.05-1.25 at pH 7.4 WB) [place] 250692-10-23 09:39:00 Test Item Value Reference Range Interpretation Comments Glucose Lvl (test code = Glucose Lvl) 150 70-99 [place] 250692-10-23 09:39:00 Test Item Value Reference Range Interpretation Comments BUN (test code = BUN) 9 7-22 [place] 250692-10-23 09:39:00 Test Item Value Reference Range Interpretation Comments Creatinine Lvl (test code = Creatinine 0.42 0.50-1.40 Lvl) [place] 250692-10-23 09:39:00 Test Item Value Reference Range Interpretation Comments Sodium Lvl (test code = Sodium Lvl) 134 135-145 [place] 250692-10-23 09:39:00 Test Item Value Reference Range Interpretation Comments Potassium Lvl (test code = Potassium 3.3 3.5-5.1 Lvl) [place] 250692-10-23 09:39:00 Test Item Value Reference Range Interpretation Comments Chloride Lvl (test code = Chloride Lvl) 102 95-109 [place] 250692-10-23 09:39:00 Test Item Value Reference Range Interpretation Comments CO2 (test code = CO2) 25 24-32 [place] 250692-10-23 09:39:00 Test Item Value Reference Range Interpretation Comments Calcium Lvl (test code = Calcium Lvl) 8.7 8.5-10.5 [place] 250692-10-23 09:39:00 Test Item Value Reference Range Interpretation Comments AGAP (test code = AGAP) 10.3 10.0-20.0 [place] 250692-10-23 09:39:00 Test Item Value Reference Range Interpretation Comments eGFR (test code = eGFR) 116 [place] 250692-10-23 09:39:00 Test Item Value Reference Range Interpretation Comments Magnesium Lvl (test code = Magnesium 1.9 1.8-2.4 Lvl) [place] 250692-10-23 09:39:00 Test Item Value Reference Range Interpretation Comments Phosphorus (test code = Phosphorus) 2.6 2.5-4.5 [place] [address]-10-23 09:39:00 Test Item Value Reference Range Interpretation Comments Segs (test code = Segs) 68.1 45.0-75.0 [place] 406462-10-23 09:39:00 Test Item Value Reference Range Interpretation Comments Lymphocytes (test code = Lymphocytes) 20.4 20.0-40.0 [place] 406462-10-23 09:39:00 Test Item Value Reference Range Interpretation Comments Monocytes (test code = Monocytes) 6.7 2.0-12.0 [place] 406462-10-23 09:39:00 Test Item Value Reference Range Interpretation Comments Eosinophils (test code = 4.1 See_Comment [A utomated message] The Eosinophils) system which nerated this result tra nsmitted reference range : <=4.0. The reference r kyle was not used to int erpret this result as normal/abnormal . [place] 406462-10-23 09:39:00 Test Item Value Reference Range Interpretation Comments Basophils (test code = 0.7 See_Comment [Aut omated message] The Basophils) system which ge nerated this result tra nsmitted reference range : <=1.0. The reference r kyle was not used to int erpret this result as normal/abnormal . [place] 406462-10-23 09:39:00 Test Item Value Reference Range Interpretation Comments Neutrophils # (test code = Neutrophils 6.7 1.5-8.1 #) [place] 406462-10-23 09:39:00 Test Item Value Reference Range Interpretation Comments Lymphocytes # (test code = Lymphocytes 2.0 1.0-5.5 #) [place] [address]-10-23 09:39:00 Test Item Value Reference Range Interpretation Comments Monocytes # (test code 0.7 See_Comment [Aut omated message] The = Monocytes #) system which generated this result tra nsmitted reference range : <=0.8. The reference r kyle was not used to int erpret this result as normal/abnormal . [facility]83[facility] 09:39:00 Test Item Value Reference Range Interpretation Comments Eosinophils # (test code 0.4 See_Comment [A utomated message] The = Eosinophils #) system whic h generated this result tra nsmitted reference range : <=0.5. The reference r kyle was not used to int erpret this result as normal/abnormal . [facility] HospitalShbimpqZHSPVULCZC9727-66-35 09:39:00 Test Item Value Reference Range Interpretation Comments Basophils # (test code 0.1 See_Comment [Aut omated message] The = Basophils #) system which generated this result tra nsmitted reference range : <=0.2. The reference r kyle was not used to int erpret this result as normal/abnormal . [facility] HospitalMbmseweCYDPILMLTD6002-12-79 09:39:00 Test Item Value Reference Range Interpretation Comments WBC (test code = WBC) 9.9 3.7-10.4 [place] 406462-10-23 09:39:00 Test Item Value Reference Range Interpretation Comments RBC (test code = RBC) 3.05 4.20-5.40 [place] 406462-10-23 09:39:00 Test Item Value Reference Range Interpretation Comments Hgb (test code = Hgb) 8.5 12.0-16.0 [place] 406462-10-23 09:39:00 Test Item Value Reference Range Interpretation Comments Hct (test code = Hct) 25.6 36.0-48.0 [place] [address]-10-23 09:39:00 Test Item Value Reference Range Interpretation Comments MCV (test code = MCV) 83.9 80.0-98.0 [place] 406462-10-23 09:39:00 Test Item Value Reference Range Interpretation Comments MCH (test code = MCH) 27.9 pg 27.0-31.0 [place] 406462-10-23 09:39:00 Test Item Value Reference Range Interpretation Comments MCHC (test code = MCHC) 33.2 32.0-36.0 [place] [address]-10-23 09:39:00 Test Item Value Reference Range Interpretation Comments RDW (test code = RDW) 12.6 11.5-14.5 [place] [address]-10-23 09:39:00 Test Item Value Reference Range Interpretation Comments Platelet (test code = Platelet) 358 133-450 [place] [address]-10-23 09:39:00 Test Item Value Reference Range Interpretation Comments MPV (test code = MPV) 8.1 7.4-10.4 [place] 118662-10-23 09:39:00 Test Item Value Reference Range Interpretation Comments Ca Ion WB (test code = Ca Ion WB) 1.11 1.05-1.25 [place] 118662-10-23 09:39:00 Test Item Value Reference Range Interpretation Comments Ca Ion at pH 7.4 WB (test code = Ca Ion 1.13 1.05-1.25 at pH 7.4 WB) [place] 250692-10-23 09:39:00 Test Item Value Reference Range Interpretation Comments Glucose Lvl (test code = Glucose Lvl) 150 70-99 [place] 250692-10-23 09:39:00 Test Item Value Reference Range Interpretation Comments BUN (test code = BUN) 9 7-22 [place] 250692-10-23 09:39:00 Test Item Value Reference Range Interpretation Comments Creatinine Lvl (test code = Creatinine 0.42 0.50-1.40 Lvl) [place] 250692-10-23 09:39:00 Test Item Value Reference Range Interpretation Comments Sodium Lvl (test code = Sodium Lvl) 134 135-145 [place] 250692-10-23 09:39:00 Test Item Value Reference Range Interpretation Comments Potassium Lvl (test code = Potassium 3.3 3.5-5.1 Lvl) [place] 250692-10-23 09:39:00 Test Item Value Reference Range Interpretation Comments Chloride Lvl (test code = Chloride Lvl) 102 95-109 [place] 250692-10-23 09:39:00 Test Item Value Reference Range Interpretation Comments CO2 (test code = CO2) 25 24-32 [place] [address]-10-23 09:39:00 Test Item Value Reference Range Interpretation Comments Calcium Lvl (test code = Calcium Lvl) 8.7 8.5-10.5 [place] [address]-10-23 09:39:00 Test Item Value Reference Range Interpretation Comments AGAP (test code = AGAP) 10.3 10.0-20.0 [place] [address]-10-23 09:39:00 Test Item Value Reference Range Interpretation Comments eGFR (test code = eGFR) [address]10-23 09:39:00 Test Item Value Reference Range Interpretation Comments Magnesium Lvl (test code = Magnesium 1.9 1.8-2.4 Lvl) [place] [address]-10-23 09:39:00 Test Item Value Reference Range Interpretation Comments Phosphorus (test code = Phosphorus) 2.6 2.5-4.5 [place] [address]-10-23 09:39:00 Test Item Value Reference Range Interpretation Comments Segs (test code = Segs) 68.1 45.0-75.0 [address]10-23 09:39:00 Test Item Value Reference Range Interpretation Comments Lymphocytes (test code = Lymphocytes) 20.4 20.0-40.0 [place] [address]-10-23 09:39:00 Test Item Value Reference Range Interpretation Comments Monocytes (test code = Monocytes) 6.7 2.0-12.0 [place] [address]-10-23 09:39:00 Test Item Value Reference Range Interpretation Comments Eosinophils (test code = 4.1 See_Comment [A utomated message] The Eosinophils) system which ge nerated this result tra nsmitted reference range : <=4.0. The reference r kyle was not used to int erpret this result as normal/abnormal . [place] [address]-10-23 09:39:00 Test Item Value Reference Range Interpretation Comments Basophils (test code = 0.7 See_Comment [Aut omated message] The Basophils) system which ge nerated this result tra nsmitted reference range : <=1.0. The reference r kyle was not used to int erpret this result as normal/abnormal . [facility] HospitalIukggdoMSAHZUXYBF7727-69-98 09:39:00 Test Item Value Reference Range Interpretation Comments Neutrophils # (test code = Neutrophils 6.7 1.5-8.1 #) [facility] HospitalLjioyveLYOCKUBKRY7524-91-41 09:39:00 Test Item Value Reference Range Interpretation Comments Lymphocytes # (test code = Lymphocytes 2.0 1.0-5.5 #) [facility] HospitalCceumngOCJUXLHDAG0813-16-95 09:39:00 Test Item Value Reference Range Interpretation Comments Monocytes # (test code 0.7 See_Comment [Aut omated message] The = Monocytes #) system which generated this result tra nsmitted reference range : <=0.8. The reference r kyle was not used to int erpret this result as normal/abnormal . [facility] HospitalDuxddtvTBVQHRIYPU5825-16-80 09:39:00 Test Item Value Reference Range Interpretation Comments Eosinophils # (test code 0.4 See_Comment [A utomated message] The = Eosinophils #) system whic h generated this result tra nsmitted reference range : <=0.5. The reference r kyle was not used to int erpret this result as normal/abnormal . [facility] HospitalEeixqdzVTPKQIBCXB4318-38-10 09:39:00 Test Item Value Reference Range Interpretation Comments Basophils # (test code 0.1 See_Comment [Aut omated message] The = Basophils #) system which generated this result tra nsmitted reference range : <=0.2. The reference r kyle was not used to int erpret this result as normal/abnormal . [facility] HospitalXgfqafzSFIGITORRG4622-99-13 09:39:00 Test Item Value Reference Range Interpretation Comments WBC (test code = WBC) 9.9 3.7-10.4 [place] 406462-10-23 09:39:00 Test Item Value Reference Range Interpretation Comments RBC (test code = RBC) 3.05 4.20-5.40 [place] 406462-10-23 09:39:00 Test Item Value Reference Range Interpretation Comments Hgb (test code = Hgb) 8.5 12.0-16.0 [place] 406462-10-23 09:39:00 Test Item Value Reference Range Interpretation Comments Hct (test code = Hct) 25.6 36.0-48.0 [place] [address]-10-23 09:39:00 Test Item Value Reference Range Interpretation Comments MCV (test code = MCV) 83.9 80.0-98.0 [place] 406462-10-23 09:39:00 Test Item Value Reference Range Interpretation Comments MCH (test code = MCH) 27.9 pg 27.0-31.0 [place] 406462-10-23 09:39:00 Test Item Value Reference Range Interpretation Comments MCHC (test code = MCHC) 33.2 32.0-36.0 [place] 406462-10-23 09:39:00 Test Item Value Reference Range Interpretation Comments RDW (test code = RDW) 12.6 11.5-14.5 [place] [address]-10-23 09:39:00 Test Item Value Reference Range Interpretation Comments Platelet (test code = Platelet) 358 133-450 [facility] HospitalTqyqotdZDUNGIXGYJ0717-09-15 09:39:00 Test Item Value Reference Range Interpretation Comments MPV (test code = MPV) 8.1 7.4-10.4 [facility]2022-10-23 09:39:00 Test Item Value Reference Range Interpretation Comments Ca Ion WB (test code = Ca Ion WB) 1.11 1.05-1.25 [place] 118662-10-23 09:39:00 Test Item Value Reference Range Interpretation Comments Ca Ion at pH 7.4 WB (test code = Ca Ion 1.13 1.05-1.25 at pH 7.4 WB) [facility]2022-10-23 09:39:00 Test Item Value Reference Range Interpretation Comments Glucose Lvl (test code = Glucose Lvl) 150 70-99 [place] 250692-10-23 09:39:00 Test Item Value Reference Range Interpretation Comments BUN (test code = BUN) 9 7-22 [place] 250692-10-23 09:39:00 Test Item Value Reference Range Interpretation Comments Creatinine Lvl (test code = Creatinine 0.42 0.50-1.40 Lvl) [facility]2022-10-23 09:39:00 Test Item Value Reference Range Interpretation Comments Sodium Lvl (test code = Sodium Lvl) 134 135-145 [place] 250692-10-23 09:39:00 Test Item Value Reference Range Interpretation Comments Potassium Lvl (test code = Potassium 3.3 3.5-5.1 Lvl) [place] 250692-10-23 09:39:00 Test Item Value Reference Range Interpretation Comments Chloride Lvl (test code = Chloride Lvl) 102 95-109 [place] 250692-10-23 09:39:00 Test Item Value Reference Range Interpretation Comments CO2 (test code = CO2) 25 24-32 [place] 250692-10-23 09:39:00 Test Item Value Reference Range Interpretation Comments Calcium Lvl (test code = Calcium Lvl) 8.7 8.5-10.5 [place] 250692-10-23 09:39:00 Test Item Value Reference Range Interpretation Comments AGAP (test code = AGAP) 10.3 10.0-20.0 [place] 250692-10-23 09:39:00 Test Item Value Reference Range Interpretation Comments eGFR (test code = eGFR) 116 [place] 250692-10-23 09:39:00 Test Item Value Reference Range Interpretation Comments Magnesium Lvl (test code = Magnesium 1.9 1.8-2.4 Lvl) [place] 250692-10-23 09:39:00 Test Item Value Reference Range Interpretation Comments Phosphorus (test code = Phosphorus) 2.6 2.5-4.5 [place] 406462-10-23 09:39:00 Test Item Value Reference Range Interpretation Comments Segs (test code = Segs) 68.1 45.0-75.0 [place] [address]-10-23 09:39:00 Test Item Value Reference Range Interpretation Comments Lymphocytes (test code = Lymphocytes) 20.4 20.0-40.0 [place] [address]-10-23 09:39:00 Test Item Value Reference Range Interpretation Comments Monocytes (test code = Monocytes) 6.7 2.0-12.0 [place] [address]-10-23 09:39:00 Test Item Value Reference Range Interpretation Comments Eosinophils (test code = 4.1 See_Comment [A utomated message] The Eosinophils) system which ge nerated this result tra nsmitted reference range : <=4.0. The reference r kyle was not used to int erpret this result as normal/abnormal . [place] 406462-10-23 09:39:00 Test Item Value Reference Range Interpretation Comments Basophils (test code = 0.7 See_Comment [Aut omated message] The Basophils) system which ge nerated this result tra nsmitted reference range : <=1.0. The reference r kyle was not used to int erpret this result as normal/abnormal . [place] 406462-10-23 09:39:00 Test Item Value Reference Range Interpretation Comments Neutrophils # (test code = Neutrophils 6.7 1.5-8.1 #) [place] [address]-10-23 09:39:00 Test Item Value Reference Range Interpretation Comments Lymphocytes # (test code = Lymphocytes 2.0 1.0-5.5 #) [place] 406462-10-23 09:39:00 Test Item Value Reference Range Interpretation Comments Monocytes # (test code 0.7 See_Comment [Aut omated message] The = Monocytes #) system which generated this result tra nsmitted reference range : <=0.8. The reference r kyle was not used to int erpret this result as normal/abnormal . [place] [address]-10-23 09:39:00 Test Item Value Reference Range Interpretation Comments Eosinophils # (test code 0.4 See_Comment [A utomated message] The = Eosinophils #) system whic h generated this result tra nsmitted reference range : <=0.5. The reference r kyle was not used to int erpret this result as normal/abnormal . [place] 406462-10-23 09:39:00 Test Item Value Reference Range Interpretation Comments Basophils # (test code 0.1 See_Comment [Aut omated message] The = Basophils #) system which generated this result tra nsmitted reference range : <=0.2. The reference r kyle was not used to int erpret this result as normal/abnormal . [place] [address]-10-23 09:39:00 Test Item Value Reference Range Interpretation Comments WBC (test code = WBC) 9.9 3.7-10.4 [place] [address]-10-23 09:39:00 Test Item Value Reference Range Interpretation Comments RBC (test code = RBC) 3.05 4.20-5.40 [place] 406462-10-23 09:39:00 Test Item Value Reference Range Interpretation Comments Hgb (test code = Hgb) 8.5 12.0-16.0 [place] 406462-10-23 09:39:00 Test Item Value Reference Range Interpretation Comments Hct (test code = Hct) 25.6 36.0-48.0 [facility] HospitalYgjkjlhAXBWXFIOQB1224-91-48 09:39:00 Test Item Value Reference Range Interpretation Comments MCV (test code = MCV) 83.9 80.0-98.0 [facility] HospitalCxqitawOETZNCFMOS9827-31-44 09:39:00 Test Item Value Reference Range Interpretation Comments MCH (test code = MCH) 27.9 pg 27.0-31.0 [facility] HospitalSoacgryDZCTUQFANU7116-05-55 09:39:00 Test Item Value Reference Range Interpretation Comments MCHC (test code = MCHC) 33.2 32.0-36.0 [facility] HospitalMutontuQAITMXATJG9028-68-61 09:39:00 Test Item Value Reference Range Interpretation Comments RDW (test code = RDW) 12.6 11.5-14.5 [facility] HospitalNcpunviAGKTTTWEUF1412-56-13 09:39:00 Test Item Value Reference Range Interpretation Comments Platelet (test code = Platelet) 358 133-450 [facility] HospitalUyaswxyMXXHCILZQQ8571-64-95 09:39:00 Test Item Value Reference Range Interpretation Comments MPV (test code = MPV) 8.1 7.4-10.4 [facility]2022-10-23 09:39:00 Test Item Value Reference Range Interpretation Comments Ca Ion WB (test code = Ca Ion WB) 1.11 1.05-1.25 [facility]2022-10-23 09:39:00 Test Item Value Reference Range Interpretation Comments Ca Ion at pH 7.4 WB (test code = Ca Ion 1.13 1.05-1.25 at pH 7.4 WB) [facility]2022-10-23 09:39:00 Test Item Value Reference Range Interpretation Comments Glucose Lvl (test code = Glucose Lvl) 150 70-99 [facility]2022-10-23 09:39:00 Test Item Value Reference Range Interpretation Comments BUN (test code = BUN) 9 7-22 [place] 250692-10-23 09:39:00 Test Item Value Reference Range Interpretation Comments Creatinine Lvl (test code = Creatinine 0.42 0.50-1.40 Lvl) [place] 250692-10-23 09:39:00 Test Item Value Reference Range Interpretation Comments Sodium Lvl (test code = Sodium Lvl) 134 135-145 [place] 250692-10-23 09:39:00 Test Item Value Reference Range Interpretation Comments Potassium Lvl (test code = Potassium 3.3 3.5-5.1 Lvl) [place] 250692-10-23 09:39:00 Test Item Value Reference Range Interpretation Comments Chloride Lvl (test code = Chloride Lvl) 102 95-109 [place] 250692-10-23 09:39:00 Test Item Value Reference Range Interpretation Comments CO2 (test code = CO2) 25 24-32 [place] 250692-10-23 09:39:00 Test Item Value Reference Range Interpretation Comments Calcium Lvl (test code = Calcium Lvl) 8.7 8.5-10.5 [place] 250692-10-23 09:39:00 Test Item Value Reference Range Interpretation Comments AGAP (test code = AGAP) 10.3 10.0-20.0 [place] 250692-10-23 09:39:00 Test Item Value Reference Range Interpretation Comments eGFR (test code = eGFR) 116 [place] 250692-10-23 09:39:00 Test Item Value Reference Range Interpretation Comments Magnesium Lvl (test code = Magnesium 1.9 1.8-2.4 Lvl) [facility]2022-10-23 09:39:00 Test Item Value Reference Range Interpretation Comments Phosphorus (test code = Phosphorus) 2.6 2.5-4.5 [place] 406462-10-23 09:39:00 Test Item Value Reference Range Interpretation Comments Segs (test code = Segs) 68.1 45.0-75.0 [place] [address]-10-23 09:39:00 Test Item Value Reference Range Interpretation Comments Lymphocytes (test code = Lymphocytes) 20.4 20.0-40.0 [place] 406462-10-23 09:39:00 Test Item Value Reference Range Interpretation Comments Monocytes (test code = Monocytes) 6.7 2.0-12.0 [place] [address]-10-23 09:39:00 Test Item Value Reference Range Interpretation Comments Eosinophils (test code = 4.1 See_Comment [A utomated message] The Eosinophils) system which ge nerated this result tra nsmitted reference range : <=4.0. The reference r kyle was not used to int erpret this result as normal/abnormal . [place] [address]-10-23 09:39:00 Test Item Value Reference Range Interpretation Comments Basophils (test code = 0.7 See_Comment [Aut omated message] The Basophils) system which ge nerated this result tra nsmitted reference range : <=1.0. The reference r kyle was not used to int erpret this result as normal/abnormal . [address]10-23 09:39:00 Test Item Value Reference Range Interpretation Comments Neutrophils # (test code = Neutrophils 6.7 1.5-8.1 #) [address]10-23 09:39:00 Test Item Value Reference Range Interpretation Comments Lymphocytes # (test code = Lymphocytes 2.0 1.0-5.5 #) [address]10-23 09:39:00 Test Item Value Reference Range Interpretation Comments Monocytes # (test code 0.7 See_Comment [Aut omated message] The = Monocytes #) system which generated this result tra nsmitted reference range : <=0.8. The reference r kyle was not used to int erpret this result as normal/abnormal . [place] [address]-10-23 09:39:00 Test Item Value Reference Range Interpretation Comments Eosinophils # (test code 0.4 See_Comment [A utomated message] The = Eosinophils #) system whic h generated this result tra nsmitted reference range : <=0.5. The reference r kyle was not used to int erpret this result as normal/abnormal . [place] [address]-10-23 09:39:00 Test Item Value Reference Range Interpretation Comments Basophils # (test code 0.1 See_Comment [Aut omated message] The = Basophils #) system which generated this result tra nsmitted reference range : <=0.2. The reference r kyle was not used to int erpret this result as normal/abnormal . [facility] HospitalFypipcmQJKAATHHYB3355-84-62 09:39:00 Test Item Value Reference Range Interpretation Comments WBC (test code = WBC) 9.9 3.7-10.4 [place] 406462-10-23 09:39:00 Test Item Value Reference Range Interpretation Comments RBC (test code = RBC) 3.05 4.20-5.40 [place] 406462-10-23 09:39:00 Test Item Value Reference Range Interpretation Comments Hgb (test code = Hgb) 8.5 12.0-16.0 [place] 406462-10-23 09:39:00 Test Item Value Reference Range Interpretation Comments Hct (test code = Hct) 25.6 36.0-48.0 [place] 406462-10-23 09:39:00 Test Item Value Reference Range Interpretation Comments MCV (test code = MCV) 83.9 80.0-98.0 [place] 406462-10-23 09:39:00 Test Item Value Reference Range Interpretation Comments MCH (test code = MCH) 27.9 pg 27.0-31.0 [facility] HospitalQxruywrPHTUAZGZNG0333-32-41 09:39:00 Test Item Value Reference Range Interpretation Comments MCHC (test code = MCHC) 33.2 32.0-36.0 [facility] HospitalUvbtypzPMHRUBPLJK4539-59-86 09:39:00 Test Item Value Reference Range Interpretation Comments RDW (test code = RDW) 12.6 11.5-14.5 [facility] HospitalXhhyaxxIHIWCEZZTM2031-37-54 09:39:00 Test Item Value Reference Range Interpretation Comments Platelet (test code = Platelet) 358 133-450 [facility] HospitalWhsrzwxXQZSKXTXIP2315-98-47 09:39:00 Test Item Value Reference Range Interpretation Comments MPV (test code = MPV) 8.1 7.4-10.4 [facility]ATHY[facility] HNKTTLF2923-20-55 09:39:00 Test Item Value Reference Range Interpretation Comments Ca Ion WB (test code = Ca Ion WB) 1.11 1.05-1.25 [facility] WYZTSNX5448-89-90 09:39:00 Test Item Value Reference Range Interpretation Comments Ca Ion at pH 7.4 WB (test code = Ca Ion 1.13 1.05-1.25 at pH 7.4 WB) [place] 406462-10-23 04:10:00 Test Item Value Reference Range Interpretation Comments Hgb (test code = Hgb) 9.1 12.0-16.0 [place] [address]-10-23 04:10:00 Test Item Value Reference Range Interpretation Comments Hct (test code = Hct) 27.1 36.0-48.0 [place] [address]-10-23 04:10:00 Test Item Value Reference Range Interpretation Comments Hgb (test code = Hgb) 9.1 12.0-16.0 [place] [address]-10-23 04:10:00 Test Item Value Reference Range Interpretation Comments Hct (test code = Hct) 27.1 36.0-48.0 [place] [address]-10-23 04:10:00 Test Item Value Reference Range Interpretation Comments Hgb (test code = Hgb) 9.1 12.0-16.0 [place] [address]-10-23 04:10:00 Test Item Value Reference Range Interpretation Comments Hct (test code = Hct) 27.1 36.0-48.0 [place] 406462-10-23 04:10:00 Test Item Value Reference Range Interpretation Comments Hgb (test code = Hgb) 9.1 12.0-16.0 [place] 406462-10-23 04:10:00 Test Item Value Reference Range Interpretation Comments Hct (test code = Hct) 27.1 36.0-48.0 [place] 406462-10-23 04:10:00 Test Item Value Reference Range Interpretation Comments Hgb (test code = Hgb) 9.1 12.0-16.0 [place] [address]-10-23 04:10:00 Test Item Value Reference Range Interpretation Comments Hct (test code = Hct) 27.1 36.0-48.0 [place] [address]-10-23 04:10:00 Test Item Value Reference Range Interpretation Comments Hgb (test code = Hgb) 9.1 12.0-16.0 [place] [address]-10-23 04:10:00 Test Item Value Reference Range Interpretation Comments Hct (test code = Hct) 27.1 36.0-48.0 [facility] HospitalNqqgyekKGLWNYQVEU3663-63-30 04:10:00 Test Item Value Reference Range Interpretation Comments Hgb (test code = Hgb) 9.1 12.0-16.0 [place] 406462-10-23 04:10:00 Test Item Value Reference Range Interpretation Comments Hct (test code = Hct) 27.1 36.0-48.0 [place] 406462-10-23 04:10:00 Test Item Value Reference Range Interpretation Comments Hgb (test code = Hgb) 9.1 12.0-16.0 [place] [address]-10-23 04:10:00 Test Item Value Reference Range Interpretation Comments Hct (test code = Hct) 27.1 36.0-48.0 [place] 406462-10-23 04:10:00 Test Item Value Reference Range Interpretation Comments Hgb (test code = Hgb) 9.1 12.0-16.0 [place] 406462-10-23 04:10:00 Test Item Value Reference Range Interpretation Comments Hct (test code = Hct) 27.1 36.0-48.0 [facility] HospitalLwifypdKETCNKMHBH9383-23-44 04:10:00 Test Item Value Reference Range Interpretation Comments Hgb (test code = Hgb) 9.1 12.0-16.0 [place] 406462-10-23 04:10:00 Test Item Value Reference Range Interpretation Comments Hct (test code = Hct) 27.1 36.0-48.0 [place] 406462-10-23 04:10:00 Test Item Value Reference Range Interpretation Comments Hgb (test code = Hgb) 9.1 12.0-16.0 [place] 406462-10-23 04:10:00 Test Item Value Reference Range Interpretation Comments Hct (test code = Hct) 27.1 36.0-48.0 [place] [address]-10-23 04:10:00 Test Item Value Reference Range Interpretation Comments Hgb (test code = Hgb) 9.1 12.0-16.0 [place] [address]-10-23 04:10:00 Test Item Value Reference Range Interpretation Comments Hct (test code = Hct) 27.1 36.0-48.0 [facility]296[facility]60 04:10:00 Test Item Value Reference Range Interpretation Comments Hgb (test code = Hgb) 9.1 12.0-16.0 [facility]oniaRieywshSRXZTHHUXE6910-70-16 04:10:00 Test Item Value Reference Range Interpretation Comments Hct (test code = Hct) 27.1 36.0-48.0 [facility]oniaCrmenwlWFUJXFPKQO5524-65-45 04:10:00 Test Item Value Reference Range Interpretation Comments Hgb (test code = Hgb) 9.1 12.0-16.0 [facility]oniaQkviqzaARXPOSZMXZ1465-16-52 04:10:00 Test Item Value Reference Range Interpretation Comments Hct (test code = Hct) 27.1 36.0-48.0 [facility] [place]muivgnPZUDUEAEJZ2092-37-73 04:10:00 Test Item Value Reference Range Interpretation Comments Hgb (test code = Hgb) 9.1 12.0-16.0 [facility]MksppihDNDQJKHPTA5857-43-78 04:10:00 Test Item Value Reference Range Interpretation Comments Hct (test code = Hct) 27.1 36.0-48.0 [facility] HospitalStoyzqvKZCEVMIUNU3294-88-33 04:10:00 Test Item Value Reference Range Interpretation Comments Hgb (test code = Hgb) 9.1 12.0-16.0 [facility]pysrmyITBWHVIXWM6240-43-67 04:10:00 Test Item Value Reference Range Interpretation Comments Hct (test code = Hct) 27.1 36.0-48.0 [facility] HospitalIgqwmrpXQOPEMBVTG7753-81-31 04:10:00 Test Item Value Reference Range Interpretation Comments Hgb (test code = Hgb) 9.1 12.0-16.0 [facility]oniaHgukameNFMDOLDLSQ1841-67-75 04:10:00 Test Item Value Reference Range Interpretation Comments Hct (test code = Hct) 27.1 36.0-48.0 [facility]oniaWjbpmnsPSHAHDYBDD1458-25-01 04:10:00 Test Item Value Reference Range Interpretation Comments Hgb (test code = Hgb) 9.1 12.0-16.0 [place] 406462-10-23 04:10:00 Test Item Value Reference Range Interpretation Comments Hct (test code = Hct) 27.1 36.0-48.0 [place] [address]-10-23 04:10:00 Test Item Value Reference Range Interpretation Comments Hgb (test code = Hgb) 9.1 12.0-16.0 [place] [address]-10-23 04:10:00 Test Item Value Reference Range Interpretation Comments Hct (test code = Hct) 27.1 36.0-48.0 [place] [address]-10-23 04:10:00 Test Item Value Reference Range Interpretation Comments Hgb (test code = Hgb) 9.1 12.0-16.0 [place] [address]-10-23 04:10:00 Test Item Value Reference Range Interpretation Comments Hct (test code = Hct) 27.1 36.0-48.0 [place] [address]-10-23 04:10:00 Test Item Value Reference Range Interpretation Comments Hgb (test code = Hgb) 9.1 12.0-16.0 [place] 406462-10-23 04:10:00 Test Item Value Reference Range Interpretation Comments Hct (test code = Hct) 27.1 36.0-48.0 [place] 406462-10-23 04:10:00 Test Item Value Reference Range Interpretation Comments Hgb (test code = Hgb) 9.1 12.0-16.0 [place] [address]-10-23 04:10:00 Test Item Value Reference Range Interpretation Comments Hct (test code = Hct) 27.1 36.0-48.0 [place] 406462-10-23 04:10:00 Test Item Value Reference Range Interpretation Comments Hgb (test code = Hgb) 9.1 12.0-16.0 [place] [address]-10-23 04:10:00 Test Item Value Reference Range Interpretation Comments Hct (test code = Hct) 27.1 36.0-48.0 [place] [address]-10-23 04:10:00 Test Item Value Reference Range Interpretation Comments Hgb (test code = Hgb) 9.1 12.0-16.0 [facility]2022-10-22 08:53:00 Test Item Value Reference Range Interpretation Comments Glucose Lvl (test code = Glucose Lvl) 93 70-99 [facility]2022-10-22 08:53:00 Test Item Value Reference Range Interpretation Comments BUN (test code = BUN) 12 7-22 [place] 250692-10-22 08:53:00 Test Item Value Reference Range Interpretation Comments Creatinine Lvl (test code = Creatinine 0.36 0.50-1.40 Lvl) [place] 250692-10-22 08:53:00 Test Item Value Reference Range Interpretation Comments Sodium Lvl (test code = Sodium Lvl) 137 135-145 [place] 250692-10-22 08:53:00 Test Item Value Reference Range Interpretation Comments Potassium Lvl (test code = Potassium 3.4 3.5-5.1 Lvl) [place] 250692-10-22 08:53:00 Test Item Value Reference Range Interpretation Comments Chloride Lvl (test code = Chloride Lvl) 105 95-109 [place] 250692-10-22 08:53:00 Test Item Value Reference Range Interpretation Comments CO2 (test code = CO2) 22 24-32 [place] 250692-10-22 08:53:00 Test Item Value Reference Range Interpretation Comments Calcium Lvl (test code = Calcium Lvl) 8.4 8.5-10.5 [place] 250692-10-22 08:53:00 Test Item Value Reference Range Interpretation Comments AGAP (test code = AGAP) 13.4 10.0-20.0 [place] 250692-10-22 08:53:00 Test Item Value Reference Range Interpretation Comments eGFR (test code = eGFR) 120 [facility]2022-10-22 08:53:00 Test Item Value Reference Range Interpretation Comments Magnesium Lvl (test code = Magnesium 2.0 1.8-2.4 Lvl) [facility]2022-10-22 08:53:00 Test Item Value Reference Range Interpretation Comments Phosphorus (test code = Phosphorus) 2.9 2.5-4.5 [facility] HospitalYdofxgmIAABQHWREU8277-20-29 08:53:00 Test Item Value Reference Range Interpretation Comments Segs (test code = Segs) 65.7 45.0-75.0 [place] 406462-10-22 08:53:00 Test Item Value Reference Range Interpretation Comments Lymphocytes (test code = Lymphocytes) 25.5 20.0-40.0 [place] [address]-10-22 08:53:00 Test Item Value Reference Range Interpretation Comments Monocytes (test code = Monocytes) 5.3 2.0-12.0 [place] [address]-10-22 08:53:00 Test Item Value Reference Range Interpretation Comments Eosinophils (test code = Eosinophils) 3.1 <=4.0 [place] [address]-10-22 08:53:00 Test Item Value Reference Range Interpretation Comments Basophils (test code = Basophils) 0.4 <=1.0 [place] [address]-10-22 08:53:00 Test Item Value Reference Range Interpretation Comments Neutrophils # (test code = Neutrophils 7.1 1.5-8.1 #) [address]10-22 08:53:00 Test Item Value Reference Range Interpretation Comments Lymphocytes # (test code = Lymphocytes 2.8 1.0-5.5 #) [place] 406462-10-22 08:53:00 Test Item Value Reference Range Interpretation Comments Monocytes # (test code = Monocytes #) 0.6 <=0.8 [place] [address]-10-22 08:53:00 Test Item Value Reference Range Interpretation Comments Eosinophils # (test code = Eosinophils 0.3 <=0.5 #) [place] [address]-10-22 08:53:00 Test Item Value Reference Range Interpretation Comments WBC (test code = WBC) 10.8 3.7-10.4 [place] [address]-10-22 08:53:00 Test Item Value Reference Range Interpretation Comments RBC (test code = RBC) 2.80 4.20-5.40 [place] [address]-10-22 08:53:00 Test Item Value Reference Range Interpretation Comments MCV (test code = MCV) 84.6 80.0-98.0 [place] [address]-10-22 08:53:00 Test Item Value Reference Range Interpretation Comments MCH (test code = MCH) 28.1 pg 27.0-31.0 [place] [address]-10-22 08:53:00 Test Item Value Reference Range Interpretation Comments MCHC (test code = MCHC) 33.2 32.0-36.0 [place] [address]-10-22 08:53:00 Test Item Value Reference Range Interpretation Comments RDW (test code = RDW) 12.6 11.5-14.5 [facility] HospitalPcyxmqjETDQNIPUVT5459-82-73 08:53:00 Test Item Value Reference Range Interpretation Comments Platelet (test code = Platelet) 330 133-450 [facility] HospitalQkjzmxxMLAAITGYNH7132-93-50 08:53:00 Test Item Value Reference Range Interpretation Comments MPV (test code = MPV) 8.1 7.4-10.4 [facility]2022-10-22 08:53:00 Test Item Value Reference Range Interpretation Comments Ca Ion WB (test code = Ca Ion WB) 1.17 1.05-1.25 [facility]2022-10-22 08:53:00 Test Item Value Reference Range Interpretation Comments Ca Ion at pH 7.4 WB (test code = Ca Ion 1.17 1.05-1.25 at pH 7.4 WB) [facility] CenterIjxvoayPPKZXSTFRW2626-51-98 08:53:00 Test Item Value Reference Range Interpretation Comments Vancomycin AUC (test code = Vancomycin 16.5 AUC) [facility]: Bjzql5340-36-94 04:19:00 Test Item Value Reference Range Interpretation Comments Culture: Urine (test code No Growth; Holding = Culture: Urine) [facility]: Cexur4025-18-76 04:19:00 Test Item Value Reference Range Interpretation Comments Culture: Urine (test code = No Growth Culture: Urine) [facility]2022-10-21 23:09:00 Test Item Value Reference Range Interpretation Comments Vitamin B12 Lvl (test code = Vitamin 276 B12 Lvl) [facility]2022-10-21 23:09:00 Test Item Value Reference Range Interpretation Comments Folate Lvl (test code = Folate Lvl) 3.7 [facility]2022-10-21 23:09:00 Test Item Value Reference Range Interpretation Comments Ferritin Lvl (test code = Ferritin Lvl) 108 5-204 [facility]2022-10-21 23:09:00 Test Item Value Reference Range Interpretation Comments Iron (test code = Iron) 26 [facility]2022-10-21 23:09:00 Test Item Value Reference Range Interpretation Comments TIBC (test code = TIBC) 198 [facility]2022-10-21 23:09:00 Test Item Value Reference Range Interpretation Comments % Satur Fe (test code = % Satur Fe) 13 [facility]2022-10-21 23:09:00 Test Item Value Reference Range Interpretation Comments Glucose Lvl (test code = Glucose Lvl) 98 70-99 [place] 250692-10-21 23:09:00 Test Item Value Reference Range Interpretation Comments BUN (test code = BUN) 12 7-22 [place] 250692-10-21 23:09:00 Test Item Value Reference Range Interpretation Comments Creatinine Lvl (test code = Creatinine 0.39 0.50-1.40 Lvl) [facility]2022-10-21 23:09:00 Test Item Value Reference Range Interpretation Comments Sodium Lvl (test code = Sodium Lvl) 134 135-145 [place] 250692-10-21 23:09:00 Test Item Value Reference Range Interpretation Comments Potassium Lvl (test code = Potassium 3.5 3.5-5.1 Lvl) [place] 250692-10-21 23:09:00 Test Item Value Reference Range Interpretation Comments Chloride Lvl (test code = Chloride Lvl) 102 95-109 [place] 250692-10-21 23:09:00 Test Item Value Reference Range Interpretation Comments CO2 (test code = CO2) 23 24-32 [place] 250692-10-21 23:09:00 Test Item Value Reference Range Interpretation Comments AGAP (test code = AGAP) 12.5 10.0-20.0 [place] 250692-10-21 23:09:00 Test Item Value Reference Range Interpretation Comments Calcium Lvl (test code = Calcium Lvl) 9.2 8.5-10.5 [place] 250692-10-21 23:09:00 Test Item Value Reference Range Interpretation Comments eGFR (test code = eGFR) 118 [place] 250692-10-21 23:09:00 Test Item Value Reference Range Interpretation Comments Magnesium Lvl (test code = Magnesium 2.0 1.8-2.4 Lvl) [place] 250692-10-21 23:09:00 Test Item Value Reference Range Interpretation Comments Phosphorus (test code = Phosphorus) 2.5 2.5-4.5 [place] 250692-10-21 23:09:00 Test Item Value Reference Range Interpretation Comments Total Protein (test code = Total 6.5 6.4-8.4 Protein) [place] 250692-10-21 23:09:00 Test Item Value Reference Range Interpretation Comments Albumin Lvl (test code = Albumin Lvl) 2.2 3.5-5.0 [place] [address]-10-21 23:09:00 Test Item Value Reference Range Interpretation Comments Globulin (test code = Globulin) 4.3 2.7-4.2 [place] [address]-10-21 23:09:00 Test Item Value Reference Range Interpretation Comments A/G Ratio (test code = A/G Ratio) 0.5 1 0.7-1.6 [address]10-21 23:09:00 Test Item Value Reference Range Interpretation Comments ALT (test code = ALT) 10 <=65 [place] [address]-10-21 23:09:00 Test Item Value Reference Range Interpretation Comments AST (test code = AST) 8 <=37 [address]10-21 23:09:00 Test Item Value Reference Range Interpretation Comments Alk Phos (test code = Alk Phos) 105 39-136 [place] 250692-10-21 23:09:00 Test Item Value Reference Range Interpretation Comments Bili Total (test code = Bili Total) 0.3 0.2-1.3 [place] [address]-10-21 23:09:00 Test Item Value Reference Range Interpretation Comments Bili Direct (test code = Bili Direct) no gt <=0.3 [place] [address]-10-21 23:09:00 Test Item Value Reference Range Interpretation Comments Bili Indirect (test code Unable to Calculate <=1.0 = Bili Indirect) [address]10-21 23:09:00 Test Item Value Reference Range Interpretation Comments Total Protein (test code = Total 6.5 6.4-8.4 Protein) [place] 223672-10-21 23:09:00 Test Item Value Reference Range Interpretation Comments Albumin Lvl (test code = Albumin Lvl) 2.2 3.5-5.0 [facility]MeeqdltDQWATUFSC0966-00-87 23:09:00 Test Item Value Reference Range Interpretation Comments Globulin (test code = Globulin) 4.3 2.7-4.2 [facility] CenterOpfcgmqOSSYBOAFM3578-09-45 23:09:00 Test Item Value Reference Range Interpretation Comments A/G Ratio (test code = A/G Ratio) 0.5 1 0.7-1.6 [facility] CenterDjeqcwuZMQJLNCIB7167-81-23 23:09:00 Test Item Value Reference Range Interpretation Comments ALT (test code = ALT) 10 <=65 [facility] CenterCteofjtUMCCJADGE7833-88-82 23:09:00 Test Item Value Reference Range Interpretation Comments AST (test code = AST) 8 <=37 [facility] CenterBjbnczeAJDLOEZSU1886-90-07 23:09:00 Test Item Value Reference Range Interpretation Comments Alk Phos (test code = Alk Phos) 105 39-136 [facility] CenterFywpqvcXPBJZXIHX6603-36-94 23:09:00 Test Item Value Reference Range Interpretation Comments Bili Total (test code = Bili Total) 0.3 0.2-1.3 [facility] CenterGvssmpdVVBLUGNNB5545-46-30 23:09:00 Test Item Value Reference Range Interpretation Comments Bili Direct (test code = Bili Direct) no gt <=0.3 [facility] CenterSypaeykVSXLOCNRH0215-96-81 23:09:00 Test Item Value Reference Range Interpretation Comments Bili Indirect (test code Unable to Calculate <=1.0 = Bili Indirect) [facility] CenterDinngqrANGNOIVMT5462-91-11 23:09:00 Test Item Value Reference Range Interpretation Comments Vitamin B12 Lvl (test code = Vitamin 900 139-7528 B12 Lvl) [facility] CenterPasdcpjXCHKKIWVM0941-35-97 23:09:00 Test Item Value Reference Range Interpretation Comments Folate Lvl (test code = Folate Lvl) 3.7 [facility] CenterRdmsqjgBEGJUYJIF7601-18-99 23:09:00 Test Item Value Reference Range Interpretation Comments Ferritin Lvl (test code = Ferritin Lvl) 108 5-204 [facility] CenterEnanabbNROSEOMNS1648-25-08 23:09:00 Test Item Value Reference Range Interpretation Comments Iron (test code = Iron) 26 45-160 [facility] CenterYxksscyTUNCVECKG0892-85-79 23:09:00 Test Item Value Reference Range Interpretation Comments TIBC (test code = TIBC) 198 250-450 [facility] CenterUkfkoepUYUVHCIMT9304-85-50 23:09:00 Test Item Value Reference Range Interpretation Comments % Satur Fe (test code = % Satur Fe) 13 16-45 [facility] HospitalLmfazllGKVSVBOYDG6747-23-95 23:09:00 Test Item Value Reference Range Interpretation Comments Segs (test code = Segs) 68.9 45.0-75.0 [facility] HospitalOweoeftDFUEJCUUDT6823-72-10 23:09:00 Test Item Value Reference Range Interpretation Comments Lymphocytes (test code = Lymphocytes) 22.4 20.0-40.0 [facility] HospitalYerjsnsNTYGBVKDXU7017-84-90 23:09:00 Test Item Value Reference Range Interpretation Comments Monocytes (test code = Monocytes) 5.7 2.0-12.0 [facility] HospitalXelmatpDPJMOWUSNX2805-57-86 23:09:00 Test Item Value Reference Range Interpretation Comments Eosinophils (test code = Eosinophils) 2.6 <=4.0 [facility] HospitalQjpufvwMLSVVLWTFA8604-91-99 23:09:00 Test Item Value Reference Range Interpretation Comments Basophils (test code = Basophils) 0.4 <=1.0 [place] 406462-10-21 23:09:00 Test Item Value Reference Range Interpretation Comments Neutrophils # (test code = Neutrophils 8.7 1.5-8.1 #) [facility] HospitalKsiixcvELXRZJCEOR7797-04-13 23:09:00 Test Item Value Reference Range Interpretation Comments Lymphocytes # (test code = Lymphocytes 2.8 1.0-5.5 #) [facility] HospitalFepwwrkDYRMDWTKXG8150-14-25 23:09:00 Test Item Value Reference Range Interpretation Comments Monocytes # (test code = Monocytes #) 0.7 <=0.8 [place] 406462-10-21 23:09:00 Test Item Value Reference Range Interpretation Comments Eosinophils # (test code = Eosinophils 0.3 <=0.5 #) [facility] HospitalXqwkjbcLEBAKEXEHA6279-91-09 23:09:00 Test Item Value Reference Range Interpretation Comments WBC (test code = WBC) 12.6 3.7-10.4 [facility] HospitalGkcgtgwGRVJXNMIPN6848-29-21 23:09:00 Test Item Value Reference Range Interpretation Comments RBC (test code = RBC) 3.13 4.20-5.40 [facility] HospitalOlrqfbmORHHANVRQA6947-31-46 23:09:00 Test Item Value Reference Range Interpretation Comments MCV (test code = MCV) 85.6 80.0-98.0 [facility]oniaRotzlzlKPTNHDRDGE0694-10-98 23:09:00 Test Item Value Reference Range Interpretation Comments MCH (test code = MCH) 27.2 pg 27.0-31.0 [facility] LivoniaTlmyfgrDQANVSCDHA1808-72-73 23:09:00 Test Item Value Reference Range Interpretation Comments MCHC (test code = MCHC) 31.8 32.0-36.0 [facility] CenterUzhogidRLYEVWFZPF9713-27-34 23:09:00 Test Item Value Reference Range Interpretation Comments RDW (test code = RDW) 12.4 11.5-14.5 [facility] CenterNgwobouCQVDUSZPTJ3120-23-67 23:09:00 Test Item Value Reference Range Interpretation Comments Platelet (test code = Platelet) 373 133-450 [facility]oniaAscmxvkYIWNGPGCNW3142-39-54 23:09:00 Test Item Value Reference Range Interpretation Comments MPV (test code = MPV) 8.2 7.4-10.4 [facility]:SUSC:PT:ISOLATE:ORDQN:[id number] 23:09:00 Test Item Value Reference Range Interpretation Comments Culture: Blood Aerobic Bottle: (test code = Staphylococcus epidermidis Culture: Blood) . Critical Results Called To: Gabe Cantu [facility] At: 06/25/2022 06:39 Called By: YAKOV Read Back Ok . Critical Results Called To: DR. MENG AND Paolo CHRISTIAN RN At: 06/25/2022 07:20 Called By: ELIAS Read Back Ok [facility]IPENEM:SUSC:PT:ISOLATE:ORDQN:[id number] 23:09:00 Test Item Value Reference Range Interpretation Comments Staphylococcus Staphylococcus epidermidis (test code epidermidis = Staphylococcus epidermidis) [facility] CenterBxlbzqiLVAPPJDKZX0642-17-29 23:09:00 Test Item Value Reference Range Interpretation Comments HIV Ag/Ab 4th Gen Negative *NA*(06/23/22 (test code = HIV 6:09 PM) Ag/Ab 4th Gen) [facility] CenterBoxiqyzLXNVKGOYSZ2186-54-66 23:09:00 Test Item Value Reference Range Interpretation Comments RPR (test code = RPR) Non Reactive (06/23/22 6:09 PM) [facility] CenterSbuigotQPABXNOVSE5794-68-42 23:09:00 Test Item Value Reference Range Interpretation Comments Hep A IgM (test code = Hep A NON-REACTIVE IgM) [facility] CenterDlqqunfLVSASGOKSK4000-53-31 23:09:00 Test Item Value Reference Range Interpretation Comments Hep Bs Ag (test code = Hep Bs NON-REACTIVE Ag) [facility] CenterBpbscmcULIJRDMJRD1060-63-91 23:09:00 Test Item Value Reference Range Interpretation Comments Hep B Core IgM (test code = Hep NON-REACTIVE B Core IgM) [facility] CenterUvozewdOMCUGNJYYM6013-35-73 23:09:00 Test Item Value Reference Range Interpretation Comments Hep C Ab (test code = Hep C Ab) NON-REACTIVE [facility] CenterSctqahiNJCFREHXYW5663-03-79 23:09:00 Test Item Value Reference Range Interpretation Comments Hep Signal to Cut-Off (test code = Hep 0.07 1 Signal to Cut-Off) [facility] CenterMhsqgvxYZXHVIFARC8005-17-85 23:09:00 Test Item Value Reference Range Interpretation Comments HIV Ag/Ab 4th Gen Negative *NA*(06/23/22 (test code = HIV 6:09 PM) Ag/Ab 4th Gen) [facility] CenterXbliudvVGJFBNAWUN8202-26-57 23:09:00 Test Item Value Reference Range Interpretation Comments RPR (test code = RPR) Non Reactive (06/23/22 6:09 PM) [facility] CenterCulture: [id number] 23:09:00 Test Item Value Reference Range Interpretation Comments Culture: Blood Anaerobic Bottle: (test code = Staphylococcus epidermidis Culture: Blood) , Refer To Culture # [id number] for call notification. [facility] CenterXoxvdwnLPLEFLELYU7152-57-09 21:40:00 Test Item Value Reference Range Interpretation Comments Coronavirus (COVID-19) Not Detected NORMAN (test code = (06/23/22 4:40 PM) Coronavirus (COVID-19) NORMAN) [facility] CenterXuqecpnZRKZOEFPJY1519-57-79 21:40:00 Test Item Value Reference Range Interpretation Comments Coronavirus (COVID-19) Not Detected NORMAN (test code = (06/23/22 4:40 PM) Coronavirus (COVID-19) NORMAN) [facility] CenterURINE AND [id number] 21:40:00 Test Item Value Reference Range Interpretation Comments UA Color (test code = Yellow *NA*(06/23/22 UA Color) 4:40 PM) [facility] AND [id number] 21:40:00 Test Item Value Reference Range Interpretation Comments UA Turbidity (test code Slight *ABN*(06/23/22 = UA Turbidity) 4:40 PM) [facility] AND [id number] 21:40:00 Test Item Value Reference Range Interpretation Comments UA Spec Grav (test code = UA Spec 1.018 1 Grav) [facility] AND [id number] 21:40:00 Test Item Value Reference Range Interpretation Comments UA pH (test code = UA pH) 7.0 1 5.0-8.0 [facility] AND [id number] 21:40:00 Test Item Value Reference Range Interpretation Comments UA Protein (test code = UA Negative mg/dL Protein) [facility] AND [id number] 21:40:00 Test Item Value Reference Range Interpretation Comments UA Glucose (test code = UA Negative mg/dL Glucose) [facility] AND [id number] 21:40:00 Test Item Value Reference Range Interpretation Comments UA Ketones (test code = UA Ketones) 20 mg/dL [facility] AND [id number] 21:40:00 Test Item Value Reference Range Interpretation Comments UA Bili (test code = Negative *NA*(06/23/22 UA Bili) 4:40 PM) [facility] AND [id number] 21:40:00 Test Item Value Reference Range Interpretation Comments UA Blood (test code = Negative (06/23/22 4:40 UA Blood) PM) [facility] AND [id number] 21:40:00 Test Item Value Reference Range Interpretation Comments UA Urobilinogen (test code = UA no gt 0.1-1.0 Urobilinogen) [facility] AND [id number] 21:40:00 Test Item Value Reference Range Interpretation Comments UA Nitrite (test code Negative (06/23/22 4:40 = UA Nitrite) PM) [facility] [id number] 21:40:00 Test Item Value Reference Range Interpretation Comments UA Leuk Est (test code Small *ABN*(06/23/22 = UA Leuk Est) 4:40 PM) [facility] [id number] 21:40:00 Test Item Value Reference Range Interpretation Comments UA Sq Epi (test code = UA Sq Epi) Many /LPF [facility] [id number] 21:40:00 Test Item Value Reference Range Interpretation Comments UA WBC (test code = UA WBC) 26 <=5 [facility] [id number] 21:40:00 Test Item Value Reference Range Interpretation Comments UA RBC (test code = UA RBC) 5 <=2 [facility] [id number] 21:40:00 Test Item Value Reference Range Interpretation Comments UA Color (test code = Yellow *NA*(06/23/22 UA Color) 4:40 PM) [facility] [id number] 21:40:00 Test Item Value Reference Range Interpretation Comments UA Turbidity (test code Slight *ABN*(06/23/22 = UA Turbidity) 4:40 PM) [facility] [id number] 21:40:00 Test Item Value Reference Range Interpretation Comments UA Spec Grav (test code = UA Spec 1.018 1 Grav) [facility] AND [id number] 21:40:00 Test Item Value Reference Range Interpretation Comments UA pH (test code = UA pH) 7.0 1 5.0-8.0 [facility] [id number] 21:40:00 Test Item Value Reference Range Interpretation Comments UA Protein (test code = UA Negative mg/dL Protein) [facility] [id number] 21:40:00 Test Item Value Reference Range Interpretation Comments UA Glucose (test code = UA Negative mg/dL Glucose) [facility] [id number] 21:40:00 Test Item Value Reference Range Interpretation Comments UA Ketones (test code = UA Ketones) 20 mg[facility]dL [facility] [id number] 21:40:00 Test Item Value Reference Range Interpretation Comments UA Bili (test code = Negative *NA*(06/23/22 UA Bili) 4:40 PM) [facility] [id number] 21:40:00 Test Item Value Reference Range Interpretation Comments UA Blood (test code = Negative (06/23/22 4:40 UA Blood) PM) [facility] [id number] 21:40:00 Test Item Value Reference Range Interpretation Comments UA Urobilinogen (test code = UA no gt 0.1-1.0 Urobilinogen) [facility] [id number] 21:40:00 Test Item Value Reference Range Interpretation Comments UA Nitrite (test code Negative (06/23/22 4:40 = UA Nitrite) PM) [facility] [id number] 21:40:00 Test Item Value Reference Range Interpretation Comments UA Leuk Est (test code Small *ABN*(06/23/22 = UA Leuk Est) 4:40 PM) [facility] [id number] 21:40:00 Test Item Value Reference Range Interpretation Comments UA Sq Epi (test code = UA Sq Epi) Many /LPF [facility] [id number] 21:40:00 Test Item Value Reference Range Interpretation Comments UA WBC (test code = UA WBC) 26 <=5 [facility] [id number] 21:40:00 Test Item Value Reference Range Interpretation Comments UA RBC (test code = UA RBC) 5 <=2 [facility]GhdbgzmDJQBRN2608-70-09 21:33:15 Test Item Value Reference Range Interpretation [...] of the bowel loops.3. Hardware as above. [facility] HospitalYurvnjxZZWGQQ9794-94-53 21:22:43 Test Item Value Reference Range Interpretation Comments RADRPT (test code EXAM: XR CHEST 1 VIEWDATE: = RADRPT) 06/23/2022 15:24INDICATION: - PNACOMPARISON: June 20, 2022TECHNIQUE: AP chestIMPRESSION: The cardiomediastinal silhouette is normal in size. Calcifications in the aortic knob. No pleural effusions or pneumothorax. The lungs are clear. 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 Degenerative changes along the thoracic spine. [place] [id number] 11:58:38 Test Item Value Reference Range Interpretation [...] Salcedo.Toñito Weiss MD On 06/23/2022 06:57:24; [id number] [facility]2022-10-21 11:00:00 Test Item Value Reference Range Interpretation Comments Glucose POC (test code = Glucose POC) 140 70-99 [facility]2022-10-21 11:00:00 Test Item Value Reference Range Interpretation Comments Gluc POC Comment 1 (test code Notified RN/MD = Gluc POC Comment 1) [facility]2022-10-21 11:00:00 Test Item Value Reference Range Interpretation Comments Gluc POC Comment 2 (test code = Cleaned Meter Gluc POC Comment 2) [facility] CenterCpwewatDUVTAEAOI8402-82-72 08:40:00 Test Item Value Reference Range Interpretation Comments Phosphorus (test code = Phosphorus) 1.7 2.5-4.5 [place] 223672-10-21 08:40:00 Test Item Value Reference Range Interpretation Comments Magnesium Lvl (test code = Magnesium 1.8 1.8-2.4 Lvl) [place] 223672-10-21 08:40:00 Test Item Value Reference Range Interpretation Comments Glucose Lvl (test code = Glucose Lvl) 155 70-99 [place] 223672-10-21 08:40:00 Test Item Value Reference Range Interpretation Comments BUN (test code = BUN) 10 7-22 [facility] CenterFpotzptDLAQZFUNM6233-77-54 08:40:00 Test Item Value Reference Range Interpretation Comments Creatinine Lvl (test code = Creatinine 0.41 0.50-1.40 Lvl) [facility] CenterWkznpfrAEJQHBCLK3801-04-02 08:40:00 Test Item Value Reference Range Interpretation Comments Sodium Lvl (test code = Sodium Lvl) 135 135-145 [facility] CenterEtvbyvtZBFLKBQUI8006-03-42 08:40:00 Test Item Value Reference Range Interpretation Comments Potassium Lvl (test code = Potassium 3.1 3.5-5.1 Lvl) [facility] CenterGmgumkvXPSJGZQZN6961-44-32 08:40:00 Test Item Value Reference Range Interpretation Comments Chloride Lvl (test code = Chloride Lvl) 103 95-109 [facility] CenterEyuhuupVZWZPASAI5797-07-29 08:40:00 Test Item Value Reference Range Interpretation Comments CO2 (test code = CO2) 24 24-32 [place] 223672-10-21 08:40:00 Test Item Value Reference Range Interpretation Comments Calcium Lvl (test code = Calcium Lvl) 8.1 8.5-10.5 [place] 223672-10-21 08:40:00 Test Item Value Reference Range Interpretation Comments AGAP (test code = AGAP) 11.1 10.0-20.0 [facility] CenterEwsymqlOVUTLRINL2071-80-01 08:40:00 Test Item Value Reference Range Interpretation Comments eGFR (test code = eGFR) 117 [facility] HospitalGqitclcXWCRVKJKGH2139-03-56 08:40:00 Test Item Value Reference Range Interpretation Comments Hgb (test code = Hgb) 8.5 12.0-16.0 [facility] HospitalCusqbnrDUEBVLIFRG5256-27-25 08:40:00 Test Item Value Reference Range Interpretation Comments Hct (test code = Hct) 25.6 36.0-48.0 [facility] HospitalGvmlvtxTMMNBLCYHH3899-07-21 08:40:00 Test Item Value Reference Range Interpretation Comments WBC (test code = WBC) 15.4 3.7-10.4 [facility] HospitalGwyxgvrILGVNLROKW8263-36-47 08:40:00 Test Item Value Reference Range Interpretation Comments RBC (test code = RBC) 3.02 4.20-5.40 [facility] HospitalHdpeqynSVEOVZLLOL7335-26-88 08:40:00 Test Item Value Reference Range Interpretation Comments MCV (test code = MCV) 84.7 80.0-98.0 [facility] HospitalRmzbselLNGGBZHVSV3090-84-28 08:40:00 Test Item Value Reference Range Interpretation Comments MCH (test code = MCH) 28.6 pg 27.0-31.0 [facility] HospitalCswotemVLQFOAYDIV5408-47-06 08:40:00 Test Item Value Reference Range Interpretation Comments MCHC (test code = MCHC) 33.7 32.0-36.0 [facility] HospitalAmspuolDCWFCGCYLJ6052-73-77 08:40:00 Test Item Value Reference Range Interpretation Comments RDW (test code = RDW) 12.4 11.5-14.5 [facility] HospitalIlkzlvyYWXPTKEBSS4959-93-53 08:40:00 Test Item Value Reference Range Interpretation Comments Platelet (test code = Platelet) 378 133-450 [facility] HospitalJdvfhofAFAPEGFMBO4488-29-89 08:40:00 Test Item Value Reference Range Interpretation Comments MPV (test code = MPV) 8.0 7.4-10.4 [facility] HospitalFqtzadwSBTZHJNJRQ3245-12-49 08:40:00 Test Item Value Reference Range Interpretation Comments Segs (test code = Segs) 67.3 45.0-75.0 [facility] HospitalAmicvafTHYXFVZQZV5034-15-12 08:40:00 Test Item Value Reference Range Interpretation Comments Lymphocytes (test code = Lymphocytes) 25.2 20.0-40.0 [facility] HospitalEujimzjYBYTLSWIGA2744-67-21 08:40:00 Test Item Value Reference Range Interpretation Comments Monocytes (test code = Monocytes) 4.2 2.0-12.0 [facility] HospitalAoeydycLJYWPQTSTT1636-14-60 08:40:00 Test Item Value Reference Range Interpretation Comments Eosinophils (test code = Eosinophils) 2.8 <=4.0 [facility]WqocmcxQNVLSFYSZP4175-32-37 08:40:00 Test Item Value Reference Range Interpretation Comments Basophils (test code = Basophils) 0.5 <=1.0 [facility]oniaItensshHTSZGSLXMO2404-28-80 08:40:00 Test Item Value Reference Range Interpretation Comments Neutrophils # (test code = Neutrophils 10.3 1.5-8.1 #) [facility]oniaIjmgbabYWLXCXRKEC4270-99-46 08:40:00 Test Item Value Reference Range Interpretation Comments Lymphocytes # (test code = Lymphocytes 3.9 1.0-5.5 #) [facility]oniaFfgciabWSPEWSJGID7720-60-56 08:40:00 Test Item Value Reference Range Interpretation Comments Monocytes # (test code = Monocytes #) 0.6 <=0.8 [facility] LivoniaVxafgxnINEHGTKQYF3240-43-72 08:40:00 Test Item Value Reference Range Interpretation Comments Eosinophils # (test code = Eosinophils 0.4 <=0.5 #) [facility] LivoniaDfxfommYESLMRLRBP8701-98-59 08:40:00 Test Item Value Reference Range Interpretation Comments Basophils # (test code = Basophils #) 0.1 <=0.2 [facility] HospitalRguolnpCHOMBYKLF1651-57-68 17:06:00 Test Item Value Reference Range Interpretation Comments Trig (test code = Trig) 94 [facility] HospitalannTOBRAMYCIN:SUSC:PT:ISOLATE:ORDQN:[id number] 15:03:00 Test Item Value Reference Range Interpretation Comments Culture: Urine (test >100,000 CFU/mL code = Culture: Escherichia coli Urine) [facility] HospitalannTOBRAMYCIN:SUSC:PT:ISOLATE:ORDQN:[id number] 15:03:00 Test Item Value Reference Range Interpretation Comments Escherichia coli (test code Escherichia coli = Escherichia coli) [facility] AND [id number] 15:03:00 Test Item Value Reference Range Interpretation Comments UA Color (test code = Yellow *NA*(06/22/22 UA Color) 10:03 AM) [facility] AND [id number] 15:03:00 Test Item Value Reference Range Interpretation Comments UA Turbidity (test code Slight Cloudy = UA Turbidity) (06/22/22 10:03 AM) [facility] [id number] 15:03:00 Test Item Value Reference Range Interpretation Comments UA Spec Grav (test code = UA Spec 1.020 1 Grav) [facility] [id number] 15:03:00 Test Item Value Reference Range Interpretation Comments UA pH (test code = UA pH) 6.0 1 5.0-8.0 [facility] [id number] 15:03:00 Test Item Value Reference Range Interpretation Comments UA Protein (test code Negative (06/22/22 = UA Protein) 10:03 AM) [facility] [id number] 15:03:00 Test Item Value Reference Range Interpretation Comments UA Glucose (test code Negative (06/22/22 = UA Glucose) 10:03 AM) [facility] [id number] 15:03:00 Test Item Value Reference Range Interpretation Comments UA Ketones (test code Negative *NA*(06/22/22 = UA Ketones) 10:03 AM) [facility] [id number] 15:03:00 Test Item Value Reference Range Interpretation Comments UA Bili (test code = Negative *NA*(06/22/22 UA Bili) 10:03 AM) [facility] [id number] 15:03:00 Test Item Value Reference Range Interpretation Comments UA Blood (test code = Negative (06/22/22 10:03 UA Blood) AM) [facility] [id number] 15:03:00 Test Item Value Reference Range Interpretation Comments UA Urobilinogen (test code = UA 0.2 0.1-1.0 Urobilinogen) [facility] [id number] 15:03:00 Test Item Value Reference Range Interpretation Comments UA Nitrite (test code Negative (06/22/22 = UA Nitrite) 10:03 AM) [facility] [id number] 15:03:00 Test Item Value Reference Range Interpretation Comments UA Leuk Est (test Moderate *ABN*(06/22/22 code = UA Leuk Est) 10:03 AM) [facility] [id number] 15:03:00 Test Item Value Reference Range Interpretation Comments UA Sq Epi (test code = None Seen (06/22/22 UA Sq Epi) 10:03 AM) [facility] [id number] 15:03:00 Test Item Value Reference Range Interpretation Comments UA WBC (test code = UA WBC) 21-50 /HPF [facility] [id number] 15:03:00 Test Item Value Reference Range Interpretation Comments UA RBC (test code = UA None Seen (06/22/22 <=2 RBC) 10:03 AM) [facility] [id number] 15:03:00 Test Item Value Reference Range Interpretation Comments UA Bacteria (test code = UA Many /HPF Bacteria) [facility] [id number] 15:03:00 Test Item Value Reference Range Interpretation Comments UA Mucus (test code = None Seen (06/22/22 UA Mucus) 10:03 AM) [facility]annORLECULAR [id number] 02:44:00 Test Item Value Reference Range Interpretation Comments S. aureus (test code = Not Detected (06/21/22 S. aureus) 9:44 PM) [facility]annORLE[facility]ULAR [id number] 02:44:00 Test Item Value Reference Range Interpretation Comments S. epidermidis (test Detected code = S. epidermidis) *ABN*(06/21/22 9:44 PM) [facility]annORLE[facility]ULAR [id number] 02:44:00 Test Item Value Reference Range Interpretation Comments S. lugdunensis (test Not Detected code = S. lugdunensis) (06/21/22 9:44 PM) [facility]annMOLECULAR [id number] 02:44:00 Test Item Value Reference Range Interpretation Comments S. anginosus grp (test Not Detected (06/21/22 code = S. anginosus 9:44 PM) grp) [facility] [id number] 02:44:00 Test Item Value Reference Range Interpretation Comments S. agalactiae (test code Not Detected = S. agalactiae) (06/21/22 9:44 PM) [facility]ann[facility]ULAR [id number] 02:44:00 Test Item Value Reference Range Interpretation Comments S. pneumoniae (test code Not Detected = S. pneumoniae) (06/21/22 9:44 PM) [facility]2022-10-20 02:44:00 Test Item Value Reference Range Interpretation Comments S. pyogenes (test code Not Detected (06/21/22 = S. pyogenes) 9:44 PM) [place] [id number] 02:44:00 Test Item Value Reference Range Interpretation Comments E. faecalis (test code Not Detected (06/21/22 = E. faecalis) 9:44 PM) [facility]2022-10-20 02:44:00 Test Item Value Reference Range Interpretation Comments E. faecium (test code Not Detected (06/21/22 = E. faecium) 9:44 PM) [facility]2022-10-20 02:44:00 Test Item Value Reference Range Interpretation Comments Staphylococcus spp. (test Detected code = Staphylococcus *ABN*(06/21/22 9:44 spp.) PM) [place] [id number] 02:44:00 Test Item Value Reference Range Interpretation Comments Streptococcus spp. (test Not Detected code = Streptococcus (06/21/22 9:44 PM) spp.) [facility]2022-10-20 02:44:00 Test Item Value Reference Range Interpretation Comments Listeria spp. (test Not Detected (06/21/22 code = Listeria spp.) 9:44 PM) [place] [id number] 02:44:00 Test Item Value Reference Range Interpretation Comments mecA Methicillin Not Detected Resistance (test code = (06/21/22 9:44 PM) mecA Methicillin Resistance) [facility] [id number] 02:44:00 Test Item Value Reference Range Interpretation Comments Neela Vancomycin Not Detected Resistance (test code = (06/21/22 9:44 PM) Neela Vancomycin Resistance) [facility]2022-10-20 02:44:00 Test Item Value Reference Range Interpretation Comments vanB Vancomycin Not Detected Resistance (test code = (06/21/22 9:44 PM) vanB Vancomycin Resistance) [facility] [id number] 02:44:00 Test Item Value Reference Range Interpretation Comments Culture: Blood Staphylococcus species, not (test code = aureus, not S. lugdunensis, Culture: Blood) DETECTED by Verigene nucleic acid test. . Aerobic Bottle: Staphylococcus epidermidis . Critical Results Called To: Rochelle@ DN6N At: 06/23/2022 08:15 Called By: MS Read Back Ok [facility] HospitalmalorieStaphylococcus gwxzzpzfjtv2970-15-41 02:44:00 Test Item Value Reference Range Interpretation Comments Staphylococcus Staphylococcus epidermidis (test code epidermidis = Staphylococcus epidermidis) [facility] CenterCulture: [id number] 02:22:00 Test Item Value Reference Range Interpretation Comments Culture: Blood (test code No Growth At 3 Days = Culture: Blood) [employer] ILPKFFD8360-05-20 10:05:00 Test Item Value Reference Range Interpretation Comments ABO/Rh (test code = ABO/Rh) O POS [facility] BMEYE [id number] 10:05:00 Test Item Value Reference Range Interpretation Comments Antibody Scrn (test Negative (06/21/22 code = Antibody Scrn) 5:05 AM) [facility] [employer] AND [id number] 05:51:00 Test Item Value Reference Range Interpretation Comments Occult Bld Stl (test Negative (06/21/22 code = Occult Bld Stl) 12:51 AM) [employer] AND [id number] 05:51:00 Test Item Value Reference Range Interpretation Comments Occult Bld Stl (test Negative (06/21/22 code = Occult Bld Stl) 12:51 AM) [employer] [id number] 03:57:00 Test Item Value Reference Range Interpretation Comments Glucose Lvl (test code = Glucose Lvl) 182 70-99 [facility] [employer]2022-10-19 03:57:00 Test Item Value Reference Range Interpretation Comments BUN (test code = BUN) 16 7-22 [facility] [employer]2022-10-19 03:57:00 Test Item Value Reference Range Interpretation Comments Creatinine Lvl (test code = Creatinine 0.59 0.50-1.40 Lvl) [facility] [employer]2022-10-19 03:57:00 Test Item Value Reference Range Interpretation Comments Sodium Lvl (test code = Sodium Lvl) 136 135-145 [place] 250692-10-19 03:57:00 Test Item Value Reference Range Interpretation Comments Potassium Lvl (test code = Potassium 3.7 3.5-5.1 Lvl) [place] 250692-10-19 03:57:00 Test Item Value Reference Range Interpretation Comments Chloride Lvl (test code = Chloride Lvl) 96 95-109 [place] 250692-10-19 03:57:00 Test Item Value Reference Range Interpretation Comments CO2 (test code = CO2) 34 24-32 [place] 250692-10-19 03:57:00 Test Item Value Reference Range Interpretation Comments Calcium Lvl (test code = Calcium Lvl) 9.5 8.5-10.5 [place] 250692-10-19 03:57:00 Test Item Value Reference Range Interpretation Comments Total Protein (test code = Total 8.4 6.4-8.4 Protein) [facility]2022-10-19 03:57:00 Test Item Value Reference Range Interpretation Comments Albumin Lvl (test code = Albumin Lvl) 2.6 3.5-5.0 [place] 250692-10-19 03:57:00 Test Item Value Reference Range Interpretation Comments ALT (test code = ALT) 21 <=65 [place] 250692-10-19 03:57:00 Test Item Value Reference Range Interpretation Comments AST (test code = AST) 13 <=37 [place] 250692-10-19 03:57:00 Test Item Value Reference Range Interpretation Comments Alk Phos (test code = Alk Phos) 171 39-136 [place] 250692-10-19 03:57:00 Test Item Value Reference Range Interpretation Comments Bili Total (test code = Bili Total) 0.3 0.2-1.3 [place] 250692-10-19 03:57:00 Test Item Value Reference Range Interpretation Comments AGAP (test code = AGAP) 9.7 10.0-20.0 [place] 250692-10-19 03:57:00 Test Item Value Reference Range Interpretation Comments B/C Ratio (test code = B/C Ratio) 27 1 6-25 [place] 250692-10-19 03:57:00 Test Item Value Reference Range Interpretation Comments Globulin (test code = Globulin) 5.8 2.7-4.2 [facility]2022-10-19 03:57:00 Test Item Value Reference Range Interpretation Comments A/G Ratio (test code = A/G Ratio) 0.4 1 0.7-1.6 [facility]2022-10-19 03:57:00 Test Item Value Reference Range Interpretation Comments eGFR (test code = eGFR) 107 [facility] CenterQblcgjySKYIPCVWU7979-03-12 03:57:00 Test Item Value Reference Range Interpretation Comments Glucose Lvl (test code = Glucose Lvl) 182 70-99 [place] 223672-10-19 03:57:00 Test Item Value Reference Range Interpretation Comments BUN (test code = BUN) 16 7-22 [facility] CenterKwfunrxYAKNTBIXL9488-58-49 03:57:00 Test Item Value Reference Range Interpretation Comments Creatinine Lvl (test code = Creatinine 0.59 0.50-1.40 Lvl) [facility] CenterIhzcandMBBWYDWIH1441-77-37 03:57:00 Test Item Value Reference Range Interpretation Comments Sodium Lvl (test code = Sodium Lvl) 136 135-145 [facility] CenterKjzdqxvWEOYDXVKQ7994-10-50 03:57:00 Test Item Value Reference Range Interpretation Comments Potassium Lvl (test code = Potassium 3.7 3.5-5.1 Lvl) [facility] CenterYehupdzQXCKBROIP8118-45-23 03:57:00 Test Item Value Reference Range Interpretation Comments Chloride Lvl (test code = Chloride Lvl) 96 95-109 [facility] CenterGzmftapSOEVAVJNX5011-25-85 03:57:00 Test Item Value Reference Range Interpretation Comments CO2 (test code = CO2) 34 24-32 [facility] CenterJdgdxfjZPXJIAYAM2639-30-58 03:57:00 Test Item Value Reference Range Interpretation Comments Calcium Lvl (test code = Calcium Lvl) 9.5 8.5-10.5 [facility] CenterIqijdcvIQUYQJOSX2985-44-39 03:57:00 Test Item Value Reference Range Interpretation Comments Total Protein (test code = Total 8.4 6.4-8.4 Protein) [facility] CenterCvlxicsEEKKWZIBK3324-28-91 03:57:00 Test Item Value Reference Range Interpretation Comments Albumin Lvl (test code = Albumin Lvl) 2.6 3.5-5.0 [place] 223672-10-19 03:57:00 Test Item Value Reference Range Interpretation Comments ALT (test code = ALT) 21 <=65 [facility] HospitalNksionkVAEIQQMBZ9804-56-30 03:57:00 Test Item Value Reference Range Interpretation Comments AST (test code = AST) 13 <=37 [facility] HospitalZjgrzbuASWWRRISX3694-34-41 03:57:00 Test Item Value Reference Range Interpretation Comments Alk Phos (test code = Alk Phos) 171 39-136 [facility] CenterAhqarrmBDQRRLMYD5292-13-12 03:57:00 Test Item Value Reference Range Interpretation Comments Bili Total (test code = Bili Total) 0.3 0.2-1.3 [facility] HospitalJnzsuyfLUOIOZVER5104-02-22 03:57:00 Test Item Value Reference Range Interpretation Comments AGAP (test code = AGAP) 9.7 10.0-20.0 [facility] CenterGxsarltAOMKFPEIS6159-32-22 03:57:00 Test Item Value Reference Range Interpretation Comments B/C Ratio (test code = B/C Ratio) 27 1 6-25 [facility] CenterFsdmlljKUWWCWICC2216-36-37 03:57:00 Test Item Value Reference Range Interpretation Comments Globulin (test code = Globulin) 5.8 2.7-4.2 [facility] HospitalRvktlaaQXNTOTCEN5041-32-60 03:57:00 Test Item Value Reference Range Interpretation Comments A/G Ratio (test code = A/G Ratio) 0.4 1 0.7-1.6 [facility] HospitalEfsikhsZRSBCKUYO3184-98-28 03:57:00 Test Item Value Reference Range Interpretation Comments eGFR (test code = eGFR) 107 [facility] HospitalPgyrphgOGFMLILTVC0664-67-11 03:57:00 Test Item Value Reference Range Interpretation Comments PT (test code = PT) 13.8 s 12.0-14.7 [facility]YqcmeqrKMMWTGGANB5711-23-88 03:57:00 Test Item Value Reference Range Interpretation Comments INR (test code = INR) 1.07 1 0.85-1.17 [facility]oniaQuihpxjAKGSDPTDXV7153-20-37 03:57:00 Test Item Value Reference Range Interpretation Comments PTT (test code = PTT) 29.4 s 22.9-35.8 [facility]oniaCvmpqjyKOOKTMAXTG7331-50-84 03:57:00 Test Item Value Reference Range Interpretation Comments PT (test code = PT) 13.8 s 12.0-14.7 [facility]oniaKssyqytYSTHJMENZE9922-91-33 03:57:00 Test Item Value Reference Range Interpretation Comments INR (test code = INR) 1.07 1 0.85-1.17 [facility] HospitalCzozowgNOGPGROGIM6928-84-90 03:57:00 Test Item Value Reference Range Interpretation Comments PTT (test code = PTT) 29.4 s 22.9-35.8 [place] [id number] 02:57:46 Test Item Value Reference Range Interpretation [...] Within normal limits. No detected fluid collection. GA OCEDURE INFORMATION: Exam: CT Abdomen And Pelvis [...] organized fluid collection. No free air. Vasculature: Idhe-cy-dttnefor aortic atherosclerosis. No aneurysmal dilatation. Lymph nodes: [...] clinically. Dontae Croft MD On 06/20/2022 21:57:25; [id number] [facility] CenterOwtbpboCRSVZBLNPV5853-90-96 02:33:00 Test Item Value Reference Range Interpretation Comments Coronavirus (COVID-19) Not Detected NORMAN (test code = (06/20/22 9:33 PM) Coronavirus (COVID-19) NORMAN) [facility] CenterPgegypcRPPJBZGDRI7089-68-62 02:33:00 Test Item Value Reference Range Interpretation Comments Coronavirus (COVID-19) Not Detected NORMAN (test code = (06/20/22 9:33 PM) Coronavirus (COVID-19) NORMAN) [facility] CenterSukknslLWKQII7087-30-56 02:07:43 Test Item Value Reference Range Interpretation [...] findings. Kwadwo Tran MD On 06/20/2022 21:06:20; [id number] [facility] BMEYE [id number] 00:50:00 Test Item Value Reference Range Interpretation Comments ABO/Rh (test code = ABO/Rh) O POS [employer] AEGZQDD1697-57-59 00:50:00 Test Item Value Reference Range Interpretation Comments Antibody Scrn (test Negative (06/20/22 code = Antibody Scrn) 7:50 PM) [facility] BMEYE [id number] 00:50:00 Test Item Value Reference Range Interpretation Comments ABO/Rh (test code = ABO/Rh) O POS [facility] BMEYE [id number] 00:50:00 Test Item Value Reference Range Interpretation Comments Antibody Scrn (test Negative (06/20/22 code = Antibody Scrn) 7:50 PM) [facility] [employer] [id number] 00:50:00 Test Item Value Reference Range Interpretation Comments Glucose Lvl (test code = Glucose Lvl) 154 70-99 [facility] [id number] 00:50:00 Test Item Value Reference Range Interpretation Comments BUN (test code = BUN) 18 7-22 [facility]2022-10-19 00:50:00 Test Item Value Reference Range Interpretation Comments Creatinine Lvl (test code = Creatinine 0.65 0.50-1.40 Lvl) [facility]2022-10-19 00:50:00 Test Item Value Reference Range Interpretation Comments Sodium Lvl (test code = Sodium Lvl) 137 135-145 [facility]PlatialAT[facility] [id number] 00:50:00 Test Item Value Reference Range Interpretation Comments Potassium Lvl (test code = Potassium 3.9 3.5-5.1 Lvl) [facility] [id number] 00:50:00 Test Item Value Reference Range Interpretation Comments Chloride Lvl (test code = Chloride Lvl) 99 95-109 [facility] [id number] 00:50:00 Test Item Value Reference Range Interpretation Comments CO2 (test code = CO2) 31 24-32 [facility]2022-10-19 00:50:00 Test Item Value Reference Range Interpretation Comments Calcium Lvl (test code = Calcium Lvl) 9.9 8.5-10.5 [facility] [id number] 00:50:00 Test Item Value Reference Range Interpretation Comments Total Protein (test code = Total 9.0 6.4-8.4 Protein) [facility]2022-10-19 00:50:00 Test Item Value Reference Range Interpretation Comments Albumin Lvl (test code = Albumin Lvl) 2.6 3.5-5.0 [facility] [id number] 00:50:00 Test Item Value Reference Range Interpretation Comments ALT (test code = ALT) 23 <=65 [facility]PlatialAT[facility] MED[facility] [id number] 00:50:00 Test Item Value Reference Range Interpretation Comments AST (test code = AST) 26 <=37 [facility] HospitalPlatialAL[place]IL[place] [id number] 00:50:00 Test Item Value Reference Range Interpretation Comments Alk Phos (test code = Alk Phos) 181 39-136 [facility]2022-10-19 00:50:00 Test Item Value Reference Range Interpretation Comments Bili Total (test code = Bili Total) 0.4 0.2-1.3 [facility] [id number] 00:50:00 Test Item Value Reference Range Interpretation Comments AGAP (test code = AGAP) 10.9 10.0-20.0 [facility] [id number] 00:50:00 Test Item Value Reference Range Interpretation Comments B/C Ratio (test code = B/C Ratio) 28 1 6-25 [facility]annN[facility] [id number] 00:50:00 Test Item Value Reference Range Interpretation Comments Globulin (test code = Globulin) 6.4 2.7-4.2 [facility] [id number] 00:50:00 Test Item Value Reference Range Interpretation Comments A/G Ratio (test code = A/G Ratio) 0.4 1 0.7-1.6 [facility] [id number] 00:50:00 Test Item Value Reference Range Interpretation Comments eGFR (test code = eGFR) 105 [facility] CenterPzvxgusOWUACJGIT2907-13-39 00:50:00 Test Item Value Reference Range Interpretation Comments S Preg (test code = S Negative *NA*(06/20/22 Preg) 7:50 PM) [id number] 00:50:00 Test Item Value Reference Range Interpretation Comments S Preg (test code = S Negative *NA*(06/20/22 Preg) 7:50 PM) [facility] CenterCtmksdhKNFJFYRGZJ5727-04-95 00:50:00 Test Item Value Reference Range Interpretation Comments WBC (test code = WBC) 16.9 3.7-10.4 [facility] CenterLfrdngpEEJVBREIMU4539-03-90 00:50:00 Test Item Value Reference Range Interpretation Comments RBC (test code = RBC) 4.52 4.20-5.40 [facility] HospitalLhyqsxjOSBTFVFYZN4742-38-65 00:50:00 Test Item Value Reference Range Interpretation Comments Hgb (test code = Hgb) 13.0 12.0-16.0 [facility]oniaOuvynlwGNZXVFRSWF5632-24-80 00:50:00 Test Item Value Reference Range Interpretation Comments Hct (test code = Hct) 39.0 36.0-48.0 [facility] CenterBdrqqadXNVQLHYWJN7989-46-38 00:50:00 Test Item Value Reference Range Interpretation Comments MCV (test code = MCV) 86.1 80.0-98.0 [facility] HospitalLayhvrsPFNPNZNLLL6027-20-50 00:50:00 Test Item Value Reference Range Interpretation Comments MCH (test code = MCH) 28.7 pg 27.0-31.0 [facility] HospitalLxowvvaTYMPKCNOLD3846-21-26 00:50:00 Test Item Value Reference Range Interpretation Comments MCHC (test code = MCHC) 33.3 32.0-36.0 [facility] HospitalC[id number] 00:50:00 Test Item Value Reference Range Interpretation Comments RDW (test code = RDW) 12.8 11.5-14.5 [facility] HospitalZtxyzcgTAKLLJBFIC9867-00-90 00:50:00 Test Item Value Reference Range Interpretation Comments Platelet (test code = Platelet) 488 133-450 [facility] HospitalDxemtmoQMAANWPPKE8982-47-01 00:50:00 Test Item Value Reference Range Interpretation Comments MPV (test code = MPV) 8.3 7.4-10.4 [facility] HospitalUbmfvvtBINSOCYCEP6129-76-76 00:50:00 Test Item Value Reference Range Interpretation Comments PT (test code = PT) 13.5 s 12.0-14.7 [facility] HospitalQuhfqhkJAWCQBHKHR2657-40-55 00:50:00 Test Item Value Reference Range Interpretation Comments INR (test code = INR) 1.04 1 0.85-1.17 [facility] HospitalSueovaxMYSICVZLAY7347-80-75 00:50:00 Test Item Value Reference Range Interpretation Comments PTT (test code = PTT) 31.2 s 22.9-35.8 [facility] HospitalUarbecdYYDKFBLTRN9420-70-40 00:50:00 Test Item Value Reference Range Interpretation Comments Segs (test code = Segs) 72.4 45.0-75.0 [facility] HospitalEjwgagyDTCBKTEVNG1654-27-65 00:50:00 Test Item Value Reference Range Interpretation Comments Lymphocytes (test code = Lymphocytes) 19.8 20.0-40.0 [facility] HospitalOeblnlrWBXKKUPEHN3759-74-14 00:50:00 Test Item Value Reference Range Interpretation Comments Monocytes (test code = Monocytes) 6.4 2.0-12.0 [facility] HospitalAyihntkBETZFIJUIW1302-40-48 00:50:00 Test Item Value Reference Range Interpretation Comments Eosinophils (test code = Eosinophils) 0.9 <=4.0 [facility]oniaYvplmrdNHYINKODRJ9202-22-84 00:50:00 Test Item Value Reference Range Interpretation Comments Basophils (test code = Basophils) 0.5 <=1.0 [facility] HospitalTtdomwlAYPUAAEAGP0450-70-92 00:50:00 Test Item Value Reference Range Interpretation Comments Neutrophils # (test code = Neutrophils 12.2 1.5-8.1 #) [facility] HospitalQptxthfIJNEAEKRFA8589-19-55 00:50:00 Test Item Value Reference Range Interpretation Comments Lymphocytes # (test code = Lymphocytes 3.4 1.0-5.5 #) [facility] HospitalLtjvpbpHOMXBXIASK6604-34-58 00:50:00 Test Item Value Reference Range Interpretation Comments Monocytes # (test code = Monocytes #) 1.1 <=0.8 [facility] HospitalVzahtewQVVODEBWOI6452-64-74 00:50:00 Test Item Value Reference Range Interpretation Comments Eosinophils # (test code = Eosinophils 0.2 <=0.5 #) [facility] HospitalEytqjioISUVZRRLQE3861-09-60 00:50:00 Test Item Value Reference Range Interpretation Comments Basophils # (test code = Basophils #) 0.1 <=0.2 [facility] HospitalGuzowhoUETDTMLNNY4510-43-34 00:50:00 Test Item Value Reference Range Interpretation Comments WBC (test code = WBC) 16.9 3.7-10.4 [facility] HospitalQedcfljLYHTTSAXVN2629-99-91 00:50:00 Test Item Value Reference Range Interpretation Comments RBC (test code = RBC) 4.52 4.20-5.40 [facility] HospitalAvzfoxmCYEYYONIDZ5274-81-11 00:50:00 Test Item Value Reference Range Interpretation Comments Hgb (test code = Hgb) 13.0 12.0-16.0 [facility] HospitalYrnxmlzNVAPHXKRSZ4253-47-72 00:50:00 Test Item Value Reference Range Interpretation Comments Hct (test code = Hct) 39.0 36.0-48.0 [facility] HospitalCochywbVWTAKQFTGP6425-97-33 00:50:00 Test Item Value Reference Range Interpretation Comments MCV (test code = MCV) 86.1 80.0-98.0 [facility] HospitalIdpzaifWYLEORKDGY9224-34-31 00:50:00 Test Item Value Reference Range Interpretation Comments MCH (test code = MCH) 28.7 pg 27.0-31.0 [facility] HospitalNuniwjqTAAIZMIZSW8627-58-47 00:50:00 Test Item Value Reference Range Interpretation Comments MCHC (test code = MCHC) 33.3 32.0-36.0 [facility] HospitalFaetekmCUNYOAYOVN1441-83-03 00:50:00 Test Item Value Reference Range Interpretation Comments RDW (test code = RDW) 12.8 11.5-14.5 [facility] HospitalOsbflsgPGXKFJRYFJ7917-35-81 00:50:00 Test Item Value Reference Range Interpretation Comments Platelet (test code = Platelet) 488 133-450 [facility] HospitalWncxlmkMDDAQNFUYM3409-67-96 00:50:00 Test Item Value Reference Range Interpretation Comments MPV (test code = MPV) 8.3 7.4-10.4 [facility] HospitalRylgsimAUOXRCOVVN0071-24-36 00:50:00 Test Item Value Reference Range Interpretation Comments Segs (test code = Segs) 72.4 45.0-75.0 [facility] HospitalKchqnchKPIHQFBWJB2330-30-99 00:50:00 Test Item Value Reference Range Interpretation Comments Lymphocytes (test code = Lymphocytes) 19.8 20.0-40.0 [facility] HospitalNmxmhjcDPIHKAQKEA0231-55-74 00:50:00 Test Item Value Reference Range Interpretation Comments Monocytes (test code = Monocytes) 6.4 2.0-12.0 [facility] HospitalHqjppizXJRBYKSQYP4382-07-55 00:50:00 Test Item Value Reference Range Interpretation Comments Eosinophils (test code = Eosinophils) 0.9 <=4.0 [facility] HospitalLumyszbUBHGPLEIYX4099-50-36 00:50:00 Test Item Value Reference Range Interpretation Comments Basophils (test code = Basophils) 0.5 <=1.0 [facility] HospitalWuljrkrKKQHRAAHMR8126-69-88 00:50:00 Test Item Value Reference Range Interpretation Comments Neutrophils # (test code = Neutrophils 12.2 1.5-8.1 #) [facility] HospitalRetqpfhGHRTVKPPHP4353-56-32 00:50:00 Test Item Value Reference Range Interpretation Comments Lymphocytes # (test code = Lymphocytes 3.4 1.0-5.5 #) [facility] HospitalLxjnhtiINTCIBEPVY4128-70-66 00:50:00 Test Item Value Reference Range Interpretation Comments Monocytes # (test code = Monocytes #) 1.1 <=0.8 [facility] HospitalIjxrzqjHJZHUFXYHW6610-51-67 00:50:00 Test Item Value Reference Range Interpretation Comments Eosinophils # (test code = Eosinophils 0.2 <=0.5 #) [facility] CenterUevgeqmZTBTKYLZYO8744-44-91 00:50:00 Test Item Value Reference Range Interpretation Comments Basophils # (test code = Basophils #) 0.1 <=0.2 [facility] History and Physical Notes Date/Time Note Provider Source 2022-07-02 20:45:00 [id number]:45:00Marcos Read [facility] Jody Mujica MD: Fina [facility] Elmer Victor MD: PERFORMEvent Display: History and PhysicalAuthored Date: [id number] and Physical Primary Team Name: Medicine Team BTeam Contact Info: [id number] Contact info:Family contact info: Code Status: Full Resuscitation Chief Complaint: Spitting up blood History of Present Illness: Ms. Villeda is a 56 yo F w/ PMHx of DM, HTN, CHF, previous gastroparesis and CVA w/ R sided weakness (11/2021) who presented to the [facility] with concern about coughing up blood that appears to be hematemesis. She originally presented to [facility] ER on Sunday (06/21) after spitting up blood which progressed to vomitting blood and patient was sent to [facility]. She reports that for the past couple weeks she has been vomiting gastric contents multiple times per day without bilious emesis or hematemesis. She reports that she is felt like food, both liquid and solid, is getting stuck in her throat then coming back up. She says she reports that she has been using some Phenergan at home for her vomiting and has also been taking hydrocodone along with large doses of aspirin. At [facility], vital signs were notable for mild tachycardia and hypertension 160s over 90s. Chest x-ray was unremarkable. CT chest abdomen and pelvis showed marked circumferential wall thickening diffusely in the esophagus compressing the lumen with mild edematous changes around the esophagus. Mild amount of air was also seen in the anterior urinary bladder and nonspecific changes of the spleen including heterogeneous parenchymal appearance and lobulated contours were also noted. Patient underwent EGD on 06/21 with findings of large blood clot in the esophagus, tethered to the esophageal wall. Findings concerning for large Belinda-Jamil tear or even Boerhaave syndrome. Melenic material in stomach. No fresh blood or active bleeding noted. [facility] was contacted for further care due to unavailability of gastroenterology consultation. At [facility] Patient was continued on pantoprazole drip, remain NPO. Commenced on cefepime and fluconazole. Urinalysis also was concerning for UTI for which she was on antibiotics.GI recommended transfer to [facility] for cardiothoracic evaluation as patient was deemed to be high risk for esophageal perforation.She was subsequently transferred to [facility]. Review of Systems: Constitutional: no fevers, no chillsEyes: no blurring of vision, no loss of vision in either eyeEars/Nose/Throat: no hearing loss, no changes in voice, feeling like food is getting stuckCV: no palpitations, no chest pain, history of HTN and CVARespiratory: no shortness of breath, no coughGI: nausea, spitting up bloodGU: no difficulty urinating, no burning during urinationMSK: no joint stiffness, strong back painSkin: no rashes, no hivesNeuro: no headaches, no numbness/tinglingPsych: no depression, no sleep disturbancesEndo: no excessive sweating, no excessive thirst Problem List/Past Medical History: Ongoing Acute blood loss anemia Acute UTI Diabetes Hypokalemia Hypophosphatemia Social History: Alcohol Never Electronic Cigarette/Vaping Electronic Cigarette Use: Never. Employment/School Status: Retired. Substance Abuse Use: None. Tobacco Use: Current every day smoker. Type: Cigarettes. Ready to change: No. Household tobacco concerns: No. Tobacco smoke exposure: None. Did the Patient Smoke Cigarettes Anytime During the Last 365 Days? Yes. Cessation Counseling Provided? No. Allergies: No Known Medication Allergies Home Medications: fluconazole, 200 mg= 100 mL, IV, [id number] metFORMIN 750 mg oral tablet, extended release, 750 mg= 1 tab, PO, Daily Physical Exam: Vitals and Measurements T: 99 F (Axillary) HR: 82 (Apical) RR: 26 BP: 137/79 SpO2: 97% WT: 69.001 kg BMI: 26.11 Neuro: in no apparent distress, alert and orientedHead: normocephalic, atraumaticEyes: extraocular movements intact, pupils equal, round, and reactive to lightNeck: supple, full range of motionCV: regular rate and rhythmPulmonary: normal respiratory effort, symmetric chest riseAbdomen: soft, non-tender, non-distendedExtremities: no edema, motor/sensation grossly intactSkin: normal temperature; no abrasionsVascular: palpable distal pulses in all extremities Pertinent Labs: Test Name Test Result Date/Time Hgb 8.6 g/dL (Low) 06/23/2022 03:40 CDT Hgb 8.7 g/dL (Low) 06/22/2022 12:06 CDT Hct 25.6 % (Low) 06/23/2022 03:40 CDT Hct 26.4 % (Low) 06/22/2022 12:06 CDT Pertinent Imaging: (06/20/2022 21:30 CDT Chest/Abdomen/Pelvis w contrast CT)IMPRESSION: CT Chest With Contrast; Diagnostic Marked circumferential [...] appear chronic in nature. Please evaluate clinically. [1] (06/22/2022 16:51 CDT Upper GI Series w water soluble DX)In the semi-erect supine position, dilute Omnipaque was ingested and multiple digital images were obtained. The upper cervical esophagus appears normal. Beginning at the level of the aortic arch, there is minimal opacification of the remainder of the esophagus which appears dilated with apparent large intraluminal filling defect. This corresponds to the hemorrhagic clot noted at endoscopy.Small amount of contrast bypasses this area to minimally opacify the stomach. No mediastinal contrast extravasation. [2] Assessment/Plan: Ms. Villeda is a 56 yo F w/ PMHx of DM, HTN, CHF, previous gastroparesis and CVA w/ R sided weakness (11/2021) who presented to the [facility] with hematemasis and was then transfered to [facility] and subsequently [facility]. Patient currently has large blood clot on esophageal wall. Patient is currently stable and being evaluated by CT surgery and GI for management of hematemesis w/ concern for elevated risk of perforation. #Hematemesis- GI Recs: -No indication for EGD at this time -Pending CT surgery evaluation -Keep patient NPO and continue PPN -Continue PPI gtt and antiemetics as needed -Transfuse to mantain hgb > 7 and plt > 50- CT surgery has been consulted. Pending recs- Scheduled Phenergan to mitigate nausea and avoid vomiting- NPO- maintenance fluids while NPO- PPN in the AM # Acute blood loss anemia- will trend H&H q6h- monitor for need of transfusion or acute blood loss Esophageal tear (S11.21XA) [1] Chest/Abdomen/Pelvis w contrast CT; Dontae Croft MD 06/20/2022 21:30 CDT [2] Upper GI Series w water soluble DX; Toñito Weiss MD 06/22/2022 16:51 CDT Neftali Hernandez MDElectronically Signed: 06/26/22 15:20Marcos Read MDElectronically Signed: 06/23/22 16:[id number] and physicalLNHistory and physicalTXTAVAvailable for patient careIEWoman's Hospital [facility]2022-11-01T22:14:18 2022-07-02 20:45:00 [id number]:45:00Marcos Read [facility] RUDD: Fina MCHUGH Joy Lopes MD: PERFORMEvent Display: History and PhysicalAuthored Date: [id number] and Physical Primary Team Name: Medicine Team BTeam Contact Info: [id number] Contact info:Family contact info: Code Status: Full Resuscitation Chief Complaint: Spitting up blood History of Present Illness: Ms. Villeda is a 56 yo F w/ PMHx of DM, HTN, CHF, previous gastroparesis and CVA w/ R sided weakness (11/2021) who presented to the [facility] with concern about coughing up blood that appears to be hematemesis. She originally presented to [facility] ER on Sunday (06/21) after spitting up blood which progressed to vomitting blood and patient was sent to [facility]. She reports that for the past couple weeks she has been vomiting gastric contents multiple times per day without bilious emesis or hematemesis. She reports that she is felt like food, both liquid and solid, is getting stuck in her throat then coming back up. She says she reports that she has been using some Phenergan at home for her vomiting and has also been taking hydrocodone along with large doses of aspirin. At [facility], vital signs were notable for mild tachycardia and hypertension 160s over 90s. Chest x-ray was unremarkable. CT chest abdomen and pelvis showed marked circumferential wall thickening diffusely in the esophagus compressing the lumen with mild edematous changes around the esophagus. Mild amount of air was also seen in the anterior urinary bladder and nonspecific changes of the spleen including heterogeneous parenchymal appearance and lobulated contours were also noted. Patient underwent EGD on 06/21 with findings of large blood clot in the esophagus, tethered to the esophageal wall. Findings concerning for large Belinda-Jamil tear or even Boerhaave syndrome. Melenic material in stomach. No fresh blood or active bleeding noted. [facility] was contacted for further care due to unavailability of gastroenterology consultation. At [facility] Patient was continued on pantoprazole drip, remain NPO. Commenced on cefepime and fluconazole. Urinalysis also was concerning for UTI for which she was on antibiotics.GI recommended transfer to [facility] for cardiothoracic evaluation as patient was deemed to be high risk for esophageal perforation.She was subsequently transferred to [facility]. Review of Systems: Constitutional: no fevers, no chillsEyes: no blurring of vision, no loss of vision in either eyeEars/Nose/Throat: no hearing loss, no changes in voice, feeling like food is getting stuckCV: no palpitations, no chest pain, history of HTN and CVARespiratory: no shortness of breath, no coughGI: nausea, spitting up bloodGU: no difficulty urinating, no burning during urinationMSK: no joint stiffness, strong back painSkin: no rashes, no hivesNeuro: no headaches, no numbness/tinglingPsych: no depression, no sleep disturbancesEndo: no excessive sweating, no excessive thirst Problem List/Past Medical History: Ongoing Acute blood loss anemia Acute UTI Diabetes Hypokalemia Hypophosphatemia Social History: Alcohol Never Electronic Cigarette/Vaping Electronic Cigarette Use: Never. Employment/School Status: Retired. Substance Abuse Use: None. Tobacco Use: Current every day smoker. Type: Cigarettes. Ready to change: No. Household tobacco concerns: No. Tobacco smoke exposure: None. Did the Patient Smoke Cigarettes Anytime During the Last 365 Days? Yes. Cessation Counseling Provided? No. Allergies: No Known Medication Allergies Home Medications: fluconazole, 200 mg= 100 mL, IV, [id number] metFORMIN 750 mg oral tablet, extended release, 750 mg= 1 tab, PO, Daily Physical Exam: Vitals and Measurements T: 99 F (Axillary) HR: 82 (Apical) RR: 26 BP: 137/79 SpO2: 97% WT: 69.001 kg BMI: 26.11 Neuro: in no apparent distress, alert and orientedHead: normocephalic, atraumaticEyes: extraocular movements intact, pupils equal, round, and reactive to lightNeck: supple, full range of motionCV: regular rate and rhythmPulmonary: normal respiratory effort, symmetric chest riseAbdomen: soft, non-tender, non-distendedExtremities: no edema, motor/sensation grossly intactSkin: normal temperature; no abrasionsVascular: palpable distal pulses in all extremities Pertinent Labs: Test Name Test Result Date/Time Hgb 8.6 g/dL (Low) 06/23/2022 03:40 CDT Hgb 8.7 g/dL (Low) 06/22/2022 12:06 CDT Hct 25.6 % (Low) 06/23/2022 03:40 CDT Hct 26.4 % (Low) 06/22/2022 12:06 CDT Pertinent Imaging: (06/20/2022 21:30 CDT Chest/Abdomen/Pelvis w contrast CT)IMPRESSION: CT Chest With Contrast; Diagnostic Marked circumferential [...] appear chronic in nature. Please evaluate clinically. [1] (06/22/2022 16:51 CDT Upper GI Series w water soluble DX)In the semi-erect supine position, dilute Omnipaque was ingested and multiple digital images were obtained. The upper cervical esophagus appears normal. Beginning at the level of the aortic arch, there is minimal opacification of the remainder of the esophagus which appears dilated with apparent large intraluminal filling defect. This corresponds to the hemorrhagic clot noted at endoscopy.Small amount of contrast bypasses this area to minimally opacify the stomach. No mediastinal contrast extravasation. [2] Assessment/Plan: Ms. Villeda is a 56 yo F w/ PMHx of DM, HTN, CHF, previous gastroparesis and CVA w/ R sided weakness (11/2021) who presented to the [facility] with hematemasis and was then transfered to [facility] and subsequently [facility]. Patient currently has large blood clot on esophageal wall. Patient is currently stable and being evaluated by CT surgery and GI for management of hematemesis w/ concern for elevated risk of perforation. #Hematemesis- GI Recs: -No indication for EGD at this time -Pending CT surgery evaluation -Keep patient NPO and continue PPN -Continue PPI gtt and antiemetics as needed -Transfuse to mantain hgb > 7 and plt > 50- CT surgery has been consulted. Pending recs- Scheduled Phenergan to mitigate nausea and avoid vomiting- NPO- maintenance fluids while NPO- PPN in the AM # Acute blood loss anemia- will trend H&H q6h- monitor for need of transfusion or acute blood loss Esophageal tear (S11.21XA) [1] Chest/Abdomen/Pelvis w contrast CT; Dontae Croft MD 06/20/2022 21:30 CDT [2] Upper GI Series w water soluble DX; Toñito Weiss MD 06/22/2022 16:51 CDT Neftali Hernandez MDElectronically Signed: 06/26/22 15:20Marcos Read MDElectronically Signed: 06/23/22 16:[id number] and physicalLNHistory and physicalTXTAVAvailable for patient careLegent Orthopedic Hospital2022-11-01T22:14:18 2022-07-02 20:45:00 [id number]:45:00Marcos Read [facility] RUDD: [facility] Elmer Victor MD: PERFORMEvent Display: History and PhysicalAuthored Date: [id number] and Physical Primary Team Name: Medicine Team BTeam Contact Info: [id number] Contact info:Family contact info: Code Status: Full Resuscitation Chief Complaint: Spitting up blood History of Present Illness: Ms. Villeda is a 56 yo F w/ PMHx of DM, HTN, CHF, previous gastroparesis and CVA w/ R sided weakness (11/2021) who presented to the [facility] with concern about coughing up blood that appears to be hematemesis. She originally presented to [facility] ER on Sunday (06/21) after spitting up blood which progressed to vomitting blood and patient was sent to [facility]. She reports that for the past couple weeks she has been vomiting gastric contents multiple times per day without bilious emesis or hematemesis. She reports that she is felt like food, both liquid and solid, is getting stuck in her throat then coming back up. She says she reports that she has been using some Phenergan at home for her vomiting and has also been taking hydrocodone along with large doses of aspirin. At [facility], vital signs were notable for mild tachycardia and hypertension 160s over 90s. Chest x-ray was unremarkable. CT chest abdomen and pelvis showed marked circumferential wall thickening diffusely in the esophagus compressing the lumen with mild edematous changes around the esophagus. Mild amount of air was also seen in the anterior urinary bladder and nonspecific changes of the spleen including heterogeneous parenchymal appearance and lobulated contours were also noted. Patient underwent EGD on 06/21 with findings of large blood clot in the esophagus, tethered to the esophageal wall. Findings concerning for large Belinda-Jamil tear or even Boerhaave syndrome. Melenic material in stomach. No fresh blood or active bleeding noted. [facility] was contacted for further care due to unavailability of gastroenterology consultation. At [facility] Patient was continued on pantoprazole drip, remain NPO. Commenced on cefepime and fluconazole. Urinalysis also was concerning for UTI for which she was on antibiotics.GI recommended transfer to [facility] for cardiothoracic evaluation as patient was deemed to be high risk for esophageal perforation.She was subsequently transferred to [facility]. Review of Systems: Constitutional: no fevers, no chillsEyes: no blurring of vision, no loss of vision in either eyeEars/Nose/Throat: no hearing loss, no changes in voice, feeling like food is getting stuckCV: no palpitations, no chest pain, history of HTN and CVARespiratory: no shortness of breath, no coughGI: nausea, spitting up bloodGU: no difficulty urinating, no burning during urinationMSK: no joint stiffness, strong back painSkin: no rashes, no hivesNeuro: no headaches, no numbness/tinglingPsych: no depression, no sleep disturbancesEndo: no excessive sweating, no excessive thirst Problem List/Past Medical History: Ongoing Acute blood loss anemia Acute UTI Diabetes Hypokalemia Hypophosphatemia Social History: Alcohol Never Electronic Cigarette/Vaping Electronic Cigarette Use: Never. Employment/School Status: Retired. Substance Abuse Use: None. Tobacco Use: Current every day smoker. Type: Cigarettes. Ready to change: No. Household tobacco concerns: No. Tobacco smoke exposure: None. Did the Patient Smoke Cigarettes Anytime During the Last 365 Days? Yes. Cessation Counseling Provided? No. Allergies: No Known Medication Allergies Home Medications: fluconazole, 200 mg= 100 mL, IV, [id number] metFORMIN 750 mg oral tablet, extended release, 750 mg= 1 tab, PO, Daily Physical Exam: Vitals and Measurements T: 99 F (Axillary) HR: 82 (Apical) RR: 26 BP: 137/79 SpO2: 97% WT: 69.001 kg BMI: 26.11 Neuro: in no apparent distress, alert and orientedHead: normocephalic, atraumaticEyes: extraocular movements intact, pupils equal, round, and reactive to lightNeck: supple, full range of motionCV: regular rate and rhythmPulmonary: normal respiratory effort, symmetric chest riseAbdomen: soft, non-tender, non-distendedExtremities: no edema, motor/sensation grossly intactSkin: normal temperature; no abrasionsVascular: palpable distal pulses in all extremities Pertinent Labs: Test Name Test Result Date/Time Hgb 8.6 g/dL (Low) 06/23/2022 03:40 CDT Hgb 8.7 g/dL (Low) 06/22/2022 12:06 CDT Hct 25.6 % (Low) 06/23/2022 03:40 CDT Hct 26.4 % (Low) 06/22/2022 12:06 CDT Pertinent Imaging: (06/20/2022 21:30 CDT Chest/Abdomen/Pelvis w contrast CT)IMPRESSION: CT Chest With Contrast; Diagnostic Marked circumferential [...] appear chronic in nature. Please evaluate clinically. [1] (06/22/2022 16:51 CDT Upper GI Series w water soluble DX)In the semi-erect supine position, dilute Omnipaque was ingested and multiple digital images were obtained. The upper cervical esophagus appears normal. Beginning at the level of the aortic arch, there is minimal opacification of the remainder of the esophagus which appears dilated with apparent large intraluminal filling defect. This corresponds to the hemorrhagic clot noted at endoscopy.Small amount of contrast bypasses this area to minimally opacify the stomach. No mediastinal contrast extravasation. [2] Assessment/Plan: Ms. Villeda is a 56 yo F w/ PMHx of DM, HTN, CHF, previous gastroparesis and CVA w/ R sided weakness (11/2021) who presented to the [facility] with hematemasis and was then transfered to [facility] and subsequently [facility]. Patient currently has large blood clot on esophageal wall. Patient is currently stable and being evaluated by CT surgery and GI for management of hematemesis w/ concern for elevated risk of perforation. #Hematemesis- GI Recs: -No indication for EGD at this time -Pending CT surgery evaluation -Keep patient NPO and continue PPN -Continue PPI gtt and antiemetics as needed -Transfuse to mantain hgb > 7 and plt > 50- CT surgery has been consulted. Pending recs- Scheduled Phenergan to mitigate nausea and avoid vomiting- NPO- maintenance fluids while NPO- PPN in the AM # Acute blood loss anemia- will trend H&H q6h- monitor for need of transfusion or acute blood loss Esophageal tear (S11.21XA) [1] Chest/Abdomen/Pelvis w contrast CT; Dontae Croft MD 06/20/2022 21:30 CDT [2] Upper GI Series w water soluble DX; Toñito Weiss MD 06/22/2022 16:51 CDT Neftali Hernandez MDElectronically Signed: 06/26/22 15:20Marcos Read MDElectronically Signed: 06/23/22 16:[id number] and physicalLNHistory and physicalTXTAVAvailable for patient careIEWoman's Hospital of [place]2022-11-01T22:14:18 2022-07-02 20:45:00 [id number]:45:00Marcos Read [facility] RUDD: [facility] Elmer Victor MD: PERFORMEvent Display: History and PhysicalAuthored Date: [id number] and Physical Primary Team Name: Medicine Team BTeam Contact Info: [id number] Contact info:Family contact info: Code Status: Full Resuscitation Chief Complaint: Spitting up blood History of Present Illness: Ms. Villeda is a 56 yo F w/ PMHx of DM, HTN, CHF, previous gastroparesis and CVA w/ R sided weakness (11/2021) who presented to the [facility] with concern about coughing up blood that appears to be hematemesis. She originally presented to [facility] ER on Sunday (06/21) after spitting up blood which progressed to vomitting blood and patient was sent to [facility]. She reports that for the past couple weeks she has been vomiting gastric contents multiple times per day without bilious emesis or hematemesis. She reports that she is felt like food, both liquid and solid, is getting stuck in her throat then coming back up. She says she reports that she has been using some Phenergan at home for her vomiting and has also been taking hydrocodone along with large doses of aspirin. At [facility], vital signs were notable for mild tachycardia and hypertension 160s over 90s. Chest x-ray was unremarkable. CT chest abdomen and pelvis showed marked circumferential wall thickening diffusely in the esophagus compressing the lumen with mild edematous changes around the esophagus. Mild amount of air was also seen in the anterior urinary bladder and nonspecific changes of the spleen including heterogeneous parenchymal appearance and lobulated contours were also noted. Patient underwent EGD on 06/21 with findings of large blood clot in the esophagus, tethered to the esophageal wall. Findings concerning for large Belinda-Jamil tear or even Boerhaave syndrome. Melenic material in stomach. No fresh blood or active bleeding noted. [facility] was contacted for further care due to unavailability of gastroenterology consultation. At [facility] Patient was continued on pantoprazole drip, remain NPO. Commenced on cefepime and fluconazole. Urinalysis also was concerning for UTI for which she was on antibiotics.GI recommended transfer to [facility] for cardiothoracic evaluation as patient was deemed to be high risk for esophageal perforation.She was subsequently transferred to [facility]. Review of Systems: Constitutional: no fevers, no chillsEyes: no blurring of vision, no loss of vision in either eyeEars/Nose/Throat: no hearing loss, no changes in voice, feeling like food is getting stuckCV: no palpitations, no chest pain, history of HTN and CVARespiratory: no shortness of breath, no coughGI: nausea, spitting up bloodGU: no difficulty urinating, no burning during urinationMSK: no joint stiffness, strong back painSkin: no rashes, no hivesNeuro: no headaches, no numbness/tinglingPsych: no depression, no sleep disturbancesEndo: no excessive sweating, no excessive thirst Problem List/Past Medical History: Ongoing Acute blood loss anemia Acute UTI Diabetes Hypokalemia Hypophosphatemia Social History: Alcohol Never Electronic Cigarette/Vaping Electronic Cigarette Use: Never. Employment/School Status: Retired. Substance Abuse Use: None. Tobacco Use: Current every day smoker. Type: Cigarettes. Ready to change: No. Household tobacco concerns: No. Tobacco smoke exposure: None. Did the Patient Smoke Cigarettes Anytime During the Last 365 Days? Yes. Cessation Counseling Provided? No. Allergies: No Known Medication Allergies Home Medications: fluconazole, 200 mg= 100 mL, IV, [id number] metFORMIN 750 mg oral tablet, extended release, 750 mg= 1 tab, PO, Daily Physical Exam: Vitals and Measurements T: 99 F (Axillary) HR: 82 (Apical) RR: 26 BP: 137/79 SpO2: 97% WT: 69.001 kg BMI: 26.11 Neuro: in no apparent distress, alert and orientedHead: normocephalic, atraumaticEyes: extraocular movements intact, pupils equal, round, and reactive to lightNeck: supple, full range of motionCV: regular rate and rhythmPulmonary: normal respiratory effort, symmetric chest riseAbdomen: soft, non-tender, non-distendedExtremities: no edema, motor/sensation grossly intactSkin: normal temperature; no abrasionsVascular: palpable distal pulses in all extremities Pertinent Labs: Test Name Test Result Date/Time Hgb 8.6 g/dL (Low) 06/23/2022 03:40 CDT Hgb 8.7 g/dL (Low) 06/22/2022 12:06 CDT Hct 25.6 % (Low) 06/23/2022 03:40 CDT Hct 26.4 % (Low) 06/22/2022 12:06 CDT Pertinent Imaging: (06/20/2022 21:30 CDT Chest/Abdomen/Pelvis w contrast CT)IMPRESSION: CT Chest With Contrast; Diagnostic Marked circumferential [...] appear chronic in nature. Please evaluate clinically. [1] (06/22/2022 16:51 CDT Upper GI Series w water soluble DX)In the semi-erect supine position, dilute Omnipaque was ingested and multiple digital images were obtained. The upper cervical esophagus appears normal. Beginning at the level of the aortic arch, there is minimal opacification of the remainder of the esophagus which appears dilated with apparent large intraluminal filling defect. This corresponds to the hemorrhagic clot noted at endoscopy.Small amount of contrast bypasses this area to minimally opacify the stomach. No mediastinal contrast extravasation. [2] Assessment/Plan: Ms. Villeda is a 56 yo F w/ PMHx of DM, HTN, CHF, previous gastroparesis and CVA w/ R sided weakness (11/2021) who presented to the [facility] with hematemasis and was then transfered to [facility] and subsequently [facility]. Patient currently has large blood clot on esophageal wall. Patient is currently stable and being evaluated by CT surgery and GI for management of hematemesis w/ concern for elevated risk of perforation. #Hematemesis- GI Recs: -No indication for EGD at this time -Pending CT surgery evaluation -Keep patient NPO and continue PPN -Continue PPI gtt and antiemetics as needed -Transfuse to mantain hgb > 7 and plt > 50- CT surgery has been consulted. Pending recs- Scheduled Phenergan to mitigate nausea and avoid vomiting- NPO- maintenance fluids while NPO- PPN in the AM # Acute blood loss anemia- will trend H&H q6h- monitor for need of transfusion or acute blood loss Esophageal tear (S11.21XA) [1] Chest/Abdomen/Pelvis w contrast CT; Dontae Croft MD 06/20/2022 21:30 CDT [2] Upper GI Series w water soluble DX; Toñito Weiss MD 06/22/2022 16:51 CDT Neftali Hernandez MDElectronically Signed: 06/26/22 15:20Marcos Read MDElectronically Signed: 06/23/22 16:[id number] and physicalLNHistory and physicalTXTAVAvailable for patient careIEWoman's Hospital of [place]2022-11-01T22:14:18 2022-07-02 20:45:00 [id number]:45:00Marcos Read [facility] RUDD[facility] Neftali Lopes MD: PERFORMEvent Display: History and PhysicalAuthored Date: [id number] and Physical Primary Team Name: Medicine Team BTeam Contact Info: [id number] Contact info:Family contact info: Code Status: Full Resuscitation Chief Complaint: Spitting up blood History of Present Illness: Ms. Villeda is a 56 yo F w/ PMHx of DM, HTN, CHF, previous gastroparesis and CVA w/ R sided weakness (11/2021) who presented to the [facility] with concern about coughing up blood that appears to be hematemesis. She originally presented to [facility] ER on Sunday (06/21) after spitting up blood which progressed to vomitting blood and patient was sent to [facility]. She reports that for the past couple weeks she has been vomiting gastric contents multiple times per day without bilious emesis or hematemesis. She reports that she is felt like food, both liquid and solid, is getting stuck in her throat then coming back up. She says she reports that she has been using some Phenergan at home for her vomiting and has also been taking hydrocodone along with large doses of aspirin. At [facility], vital signs were notable for mild tachycardia and hypertension 160s over 90s. Chest x-ray was unremarkable. CT chest abdomen and pelvis showed marked circumferential wall thickening diffusely in the esophagus compressing the lumen with mild edematous changes around the esophagus. Mild amount of air was also seen in the anterior urinary bladder and nonspecific changes of the spleen including heterogeneous parenchymal appearance and lobulated contours were also noted. Patient underwent EGD on 06/21 with findings of large blood clot in the esophagus, tethered to the esophageal wall. Findings concerning for large Belinda-Jamil tear or even Boerhaave syndrome. Melenic material in stomach. No fresh blood or active bleeding noted. [facility] was contacted for further care due to unavailability of gastroenterology consultation. At [facility] Patient was continued on pantoprazole drip, remain NPO. Commenced on cefepime and fluconazole. Urinalysis also was concerning for UTI for which she was on antibiotics.GI recommended transfer to [facility] for cardiothoracic evaluation as patient was deemed to be high risk for esophageal perforation.She was subsequently transferred to [facility]. Review of Systems: Constitutional: no fevers, no chillsEyes: no blurring of vision, no loss of vision in either eyeEars/Nose/Throat: no hearing loss, no changes in voice, feeling like food is getting stuckCV: no palpitations, no chest pain, history of HTN and CVARespiratory: no shortness of breath, no coughGI: nausea, spitting up bloodGU: no difficulty urinating, no burning during urinationMSK: no joint stiffness, strong back painSkin: no rashes, no hivesNeuro: no headaches, no numbness/tinglingPsych: no depression, no sleep disturbancesEndo: no excessive sweating, no excessive thirst Problem List/Past Medical History: Ongoing Acute blood loss anemia Acute UTI Diabetes Hypokalemia Hypophosphatemia Social History: Alcohol Never Electronic Cigarette/Vaping Electronic Cigarette Use: Never. Employment/School Status: Retired. Substance Abuse Use: None. Tobacco Use: Current every day smoker. Type: Cigarettes. Ready to change: No. Household tobacco concerns: No. Tobacco smoke exposure: None. Did the Patient Smoke Cigarettes Anytime During the Last 365 Days? Yes. Cessation Counseling Provided? No. Allergies: No Known Medication Allergies Home Medications: fluconazole, 200 mg= 100 mL, IV, [id number] metFORMIN 750 mg oral tablet, extended release, 750 mg= 1 tab, PO, Daily Physical Exam: Vitals and Measurements T: 99 F (Axillary) HR: 82 (Apical) RR: 26 BP: 137/79 SpO2: 97% WT: 69.001 kg BMI: 26.11 Neuro: in no apparent distress, alert and orientedHead: normocephalic, atraumaticEyes: extraocular movements intact, pupils equal, round, and reactive to lightNeck: supple, full range of motionCV: regular rate and rhythmPulmonary: normal respiratory effort, symmetric chest riseAbdomen: soft, non-tender, non-distendedExtremities: no edema, motor/sensation grossly intactSkin: normal temperature; no abrasionsVascular: palpable distal pulses in all extremities Pertinent Labs: Test Name Test Result Date/Time Hgb 8.6 g/dL (Low) 06/23/2022 03:40 CDT Hgb 8.7 g/dL (Low) 06/22/2022 12:06 CDT Hct 25.6 % (Low) 06/23/2022 03:40 CDT Hct 26.4 % (Low) 06/22/2022 12:06 CDT Pertinent Imaging: (06/20/2022 21:30 CDT Chest/Abdomen/Pelvis w contrast CT)IMPRESSION: CT Chest With Contrast; Diagnostic Marked circumferential [...] appear chronic in nature. Please evaluate clinically. [1] (06/22/2022 16:51 CDT Upper GI Series w water soluble DX)In the semi-erect supine position, dilute Omnipaque was ingested and multiple digital images were obtained. The upper cervical esophagus appears normal. Beginning at the level of the aortic arch, there is minimal opacification of the remainder of the esophagus which appears dilated with apparent large intraluminal filling defect. This corresponds to the hemorrhagic clot noted at endoscopy.Small amount of contrast bypasses this area to minimally opacify the stomach. No mediastinal contrast extravasation. [2] Assessment/Plan: Ms. Villeda is a 56 yo F w/ PMHx of DM, HTN, CHF, previous gastroparesis and CVA w/ R sided weakness (11/2021) who presented to the [facility] with hematemasis and was then transfered to [facility] and subsequently [facility]. Patient currently has large blood clot on esophageal wall. Patient is currently stable and being evaluated by CT surgery and GI for management of hematemesis w/ concern for elevated risk of perforation. #Hematemesis- GI Recs: -No indication for EGD at this time -Pending CT surgery evaluation -Keep patient NPO and continue PPN -Continue PPI gtt and antiemetics as needed -Transfuse to mantain hgb > 7 and plt > 50- CT surgery has been consulted. Pending recs- Scheduled Phenergan to mitigate nausea and avoid vomiting- NPO- maintenance fluids while NPO- PPN in the AM # Acute blood loss anemia- will trend H&H q6h- monitor for need of transfusion or acute blood loss Esophageal tear (S11.21XA) [1] Chest/Abdomen/Pelvis w contrast CT; Dontae Croft MD 06/20/2022 21:30 CDT [2] Upper GI Series w water soluble DX; Toñito Weiss MD 06/22/2022 16:51 CDT Neftali Hernandez MDElectronically Signed: 06/26/22 15:20Marcos Read MDElectronically Signed: 06/23/22 16:[id number] and physicalLNHistory and physicalTXTAVAvailable for patient [id number] and physicalLNMHIEWoman's Hospital of [place]2022-11-01T22:14:18 2022-07-02 20:45:00 [id number]:45:00Marcos Read [facility] RUDD[facility] Neftali Lopes MD: PERFORMEvent Display: History and PhysicalAuthored Date: [id number] and Physical Primary Team Name: Medicine Team BTeam Contact Info: [id number] Contact info:Family contact info: Code Status: Full Resuscitation Chief Complaint: Spitting up blood History of Present Illness: Ms. Villeda is a 56 yo F w/ PMHx of DM, HTN, CHF, previous gastroparesis and CVA w/ R sided weakness (11/2021) who presented to the [facility] with concern about coughing up blood that appears to be hematemesis. She originally presented to [facility] ER on Sunday (06/21) after spitting up blood which progressed to vomitting blood and patient was sent to [facility]. She reports that for the past couple weeks she has been vomiting gastric contents multiple times per day without bilious emesis or hematemesis. She reports that she is felt like food, both liquid and solid, is getting stuck in her throat then coming back up. She says she reports that she has been using some Phenergan at home for her vomiting and has also been taking hydrocodone along with large doses of aspirin. At [facility], vital signs were notable for mild tachycardia and hypertension 160s over 90s. Chest x-ray was unremarkable. CT chest abdomen and pelvis showed marked circumferential wall thickening diffusely in the esophagus compressing the lumen with mild edematous changes around the esophagus. Mild amount of air was also seen in the anterior urinary bladder and nonspecific changes of the spleen including heterogeneous parenchymal appearance and lobulated contours were also noted. Patient underwent EGD on 06/21 with findings of large blood clot in the esophagus, tethered to the esophageal wall. Findings concerning for large Belinda-Jamil tear or even Boerhaave syndrome. Melenic material in stomach. No fresh blood or active bleeding noted. [facility] was contacted for further care due to unavailability of gastroenterology consultation. At [facility] Patient was continued on pantoprazole drip, remain NPO. Commenced on cefepime and fluconazole. Urinalysis also was concerning for UTI for which she was on antibiotics.GI recommended transfer to [facility] for cardiothoracic evaluation as patient was deemed to be high risk for esophageal perforation.She was subsequently transferred to [facility]. Review of Systems: Constitutional: no fevers, no chillsEyes: no blurring of vision, no loss of vision in either eyeEars/Nose/Throat: no hearing loss, no changes in voice, feeling like food is getting stuckCV: no palpitations, no chest pain, history of HTN and CVARespiratory: no shortness of breath, no coughGI: nausea, spitting up bloodGU: no difficulty urinating, no burning during urinationMSK: no joint stiffness, strong back painSkin: no rashes, no hivesNeuro: no headaches, no numbness/tinglingPsych: no depression, no sleep disturbancesEndo: no excessive sweating, no excessive thirst Problem List/Past Medical History: Ongoing Acute blood loss anemia Acute UTI Diabetes Hypokalemia Hypophosphatemia Social History: Alcohol Never Electronic Cigarette/Vaping Electronic Cigarette Use: Never. Employment/School Status: Retired. Substance Abuse Use: None. Tobacco Use: Current every day smoker. Type: Cigarettes. Ready to change: No. Household tobacco concerns: No. Tobacco smoke exposure: None. Did the Patient Smoke Cigarettes Anytime During the Last 365 Days? Yes. Cessation Counseling Provided? No. Allergies: No Known Medication Allergies Home Medications: fluconazole, 200 mg= 100 mL, IV, [id number] metFORMIN 750 mg oral tablet, extended release, 750 mg= 1 tab, PO, Daily Physical Exam: Vitals and Measurements T: 99 F (Axillary) HR: 82 (Apical) RR: 26 BP: 137/79 SpO2: 97% WT: 69.001 kg BMI: 26.11 Neuro: in no apparent distress, alert and orientedHead: normocephalic, atraumaticEyes: extraocular movements intact, pupils equal, round, and reactive to lightNeck: supple, full range of motionCV: regular rate and rhythmPulmonary: normal respiratory effort, symmetric chest riseAbdomen: soft, non-tender, non-distendedExtremities: no edema, motor/sensation grossly intactSkin: normal temperature; no abrasionsVascular: palpable distal pulses in all extremities Pertinent Labs: Test Name Test Result Date/Time Hgb 8.6 g/dL (Low) 06/23/2022 03:40 CDT Hgb 8.7 g/dL (Low) 06/22/2022 12:06 CDT Hct 25.6 % (Low) 06/23/2022 03:40 CDT Hct 26.4 % (Low) 06/22/2022 12:06 CDT Pertinent Imaging: (06/20/2022 21:30 CDT Chest/Abdomen/Pelvis w contrast CT)IMPRESSION: CT Chest With Contrast; Diagnostic Marked circumferential [...] appear chronic in nature. Please evaluate clinically. [1] (06/22/2022 16:51 CDT Upper GI Series w water soluble DX)In the semi-erect supine position, dilute Omnipaque was ingested and multiple digital images were obtained. The upper cervical esophagus appears normal. Beginning at the level of the aortic arch, there is minimal opacification of the remainder of the esophagus which appears dilated with apparent large intraluminal filling defect. This corresponds to the hemorrhagic clot noted at endoscopy.Small amount of contrast bypasses this area to minimally opacify the stomach. No mediastinal contrast extravasation. [2] Assessment/Plan: Ms. Villeda is a 56 yo F w/ PMHx of DM, HTN, CHF, previous gastroparesis and CVA w/ R sided weakness (11/2021) who presented to the [facility] with hematemasis and was then transfered to [facility] and subsequently [facility]. Patient currently has large blood clot on esophageal wall. Patient is currently stable and being evaluated by CT surgery and GI for management of hematemesis w/ concern for elevated risk of perforation. #Hematemesis- GI Recs: -No indication for EGD at this time -Pending CT surgery evaluation -Keep patient NPO and continue PPN -Continue PPI gtt and antiemetics as needed -Transfuse to mantain hgb > 7 and plt > 50- CT surgery has been consulted. Pending recs- Scheduled Phenergan to mitigate nausea and avoid vomiting- NPO- maintenance fluids while NPO- PPN in the AM # Acute blood loss anemia- will trend H&H q6h- monitor for need of transfusion or acute blood loss Esophageal tear (S11.21XA) [1] Chest/Abdomen/Pelvis w contrast CT; Dontae Croft MD 06/20/2022 21:30 CDT [2] Upper GI Series w water soluble DX; Toñito Weiss MD 06/22/2022 16:51 CDT Neftali Hernandez MDElectronically Signed: 06/26/22 15:20Marcos Read MDElectronically Signed: 06/23/22 16:[id number] and physicalLNHistory and physicalTXTAVAvailable for patient [id number] and physicalLNMHIEWoman's Hospital of [place]2022-11-01T22:14:18 2022-07-02 20:45:00 [id number]:45:00Marcos Read [facility] RUDD[facility] Neftali Lopes MD: PERFORMEvent Display: History and PhysicalAuthored Date: [id number] and Physical Primary Team Name: Medicine Team BTeam Contact Info: [id number] Contact info:Family contact info: Code Status: Full Resuscitation Chief Complaint: Spitting up blood History of Present Illness: Ms. Villeda is a 56 yo F w/ PMHx of DM, HTN, CHF, previous gastroparesis and CVA w/ R sided weakness (11/2021) who presented to the [facility] with concern about coughing up blood that appears to be hematemesis. She originally presented to [facility] ER on Sunday (06/21) after spitting up blood which progressed to vomitting blood and patient was sent to [facility]. She reports that for the past couple weeks she has been vomiting gastric contents multiple times per day without bilious emesis or hematemesis. She reports that she is felt like food, both liquid and solid, is getting stuck in her throat then coming back up. She says she reports that she has been using some Phenergan at home for her vomiting and has also been taking hydrocodone along with large doses of aspirin. At [facility], vital signs were notable for mild tachycardia and hypertension 160s over 90s. Chest x-ray was unremarkable. CT chest abdomen and pelvis showed marked circumferential wall thickening diffusely in the esophagus compressing the lumen with mild edematous changes around the esophagus. Mild amount of air was also seen in the anterior urinary bladder and nonspecific changes of the spleen including heterogeneous parenchymal appearance and lobulated contours were also noted. Patient underwent EGD on 06/21 with findings of large blood clot in the esophagus, tethered to the esophageal wall. Findings concerning for large Belinda-Jamil tear or even Boerhaave syndrome. Melenic material in stomach. No fresh blood or active bleeding noted. [facility] was contacted for further care due to unavailability of gastroenterology consultation. At [facility] Patient was continued on pantoprazole drip, remain NPO. Commenced on cefepime and fluconazole. Urinalysis also was concerning for UTI for which she was on antibiotics.GI recommended transfer to [facility] for cardiothoracic evaluation as patient was deemed to be high risk for esophageal perforation.She was subsequently transferred to [facility]. Review of Systems: Constitutional: no fevers, no chillsEyes: no blurring of vision, no loss of vision in either eyeEars/Nose/Throat: no hearing loss, no changes in voice, feeling like food is getting stuckCV: no palpitations, no chest pain, history of HTN and CVARespiratory: no shortness of breath, no coughGI: nausea, spitting up bloodGU: no difficulty urinating, no burning during urinationMSK: no joint stiffness, strong back painSkin: no rashes, no hivesNeuro: no headaches, no numbness/tinglingPsych: no depression, no sleep disturbancesEndo: no excessive sweating, no excessive thirst Problem List/Past Medical History: Ongoing Acute blood loss anemia Acute UTI Diabetes Hypokalemia Hypophosphatemia Social History: Alcohol Never Electronic Cigarette/Vaping Electronic Cigarette Use: Never. Employment/School Status: Retired. Substance Abuse Use: None. Tobacco Use: Current every day smoker. Type: Cigarettes. Ready to change: No. Household tobacco concerns: No. Tobacco smoke exposure: None. Did the Patient Smoke Cigarettes Anytime During the Last 365 Days? Yes. Cessation Counseling Provided? No. Allergies: No Known Medication Allergies Home Medications: fluconazole, 200 mg= 100 mL, IV, [id number] metFORMIN 750 mg oral tablet, extended release, 750 mg= 1 tab, PO, Daily Physical Exam: Vitals and Measurements T: 99 F (Axillary) HR: 82 (Apical) RR: 26 BP: 137/79 SpO2: 97% WT: 69.001 kg BMI: 26.11 Neuro: in no apparent distress, alert and orientedHead: normocephalic, atraumaticEyes: extraocular movements intact, pupils equal, round, and reactive to lightNeck: supple, full range of motionCV: regular rate and rhythmPulmonary: normal respiratory effort, symmetric chest riseAbdomen: soft, non-tender, non-distendedExtremities: no edema, motor/sensation grossly intactSkin: normal temperature; no abrasionsVascular: palpable distal pulses in all extremities Pertinent Labs: Test Name Test Result Date/Time Hgb 8.6 g/dL (Low) 06/23/2022 03:40 CDT Hgb 8.7 g/dL (Low) 06/22/2022 12:06 CDT Hct 25.6 % (Low) 06/23/2022 03:40 CDT Hct 26.4 % (Low) 06/22/2022 12:06 CDT Pertinent Imaging: (06/20/2022 21:30 CDT Chest/Abdomen/Pelvis w contrast CT)IMPRESSION: CT Chest With Contrast; Diagnostic Marked circumferential [...] appear chronic in nature. Please evaluate clinically. [1] (06/22/2022 16:51 CDT Upper GI Series w water soluble DX)In the semi-erect supine position, dilute Omnipaque was ingested and multiple digital images were obtained. The upper cervical esophagus appears normal. Beginning at the level of the aortic arch, there is minimal opacification of the remainder of the esophagus which appears dilated with apparent large intraluminal filling defect. This corresponds to the hemorrhagic clot noted at endoscopy.Small amount of contrast bypasses this area to minimally opacify the stomach. No mediastinal contrast extravasation. [2] Assessment/Plan: Ms. Villeda is a 56 yo F w/ PMHx of DM, HTN, CHF, previous gastroparesis and CVA w/ R sided weakness (11/2021) who presented to the [facility] with hematemasis and was then transfered to [facility] and subsequently [facility]. Patient currently has large blood clot on esophageal wall. Patient is currently stable and being evaluated by CT surgery and GI for management of hematemesis w/ concern for elevated risk of perforation. #Hematemesis- GI Recs: -No indication for EGD at this time -Pending CT surgery evaluation -Keep patient NPO and continue PPN -Continue PPI gtt and antiemetics as needed -Transfuse to mantain hgb > 7 and plt > 50- CT surgery has been consulted. Pending recs- Scheduled Phenergan to mitigate nausea and avoid vomiting- NPO- maintenance fluids while NPO- PPN in the AM # Acute blood loss anemia- will trend H&H q6h- monitor for need of transfusion or acute blood loss Esophageal tear (S11.21XA) [1] Chest/Abdomen/Pelvis w contrast CT; Dontae Croft MD 06/20/2022 21:30 CDT [2] Upper GI Series w water soluble DX; Toñito Weiss MD 06/22/2022 16:51 CDT Neftali Hernandez MDElectronically Signed: 06/26/22 15:20HerMarcos lund MDElectronically Signed: 06/23/22 16:[id number] and physicalLNHistory and physicalTXTAVAvailable for patient [id number] and physicalLNMHIEWoman's Hospital of [place]2022-11-01T22:14:18 2022-07-02 20:45:00 [id number]:00Marcos Read [facility] RUDD: Fina MCHUGH [facility] Elmer Victor MD: PERFORMEvent Display: History and PhysicalAuthored Date: [id number] and Physical Primary Team Name: Medicine Team BTeam Contact Info: [id number] Contact info:Family contact info: Code Status: Full Resuscitation Chief Complaint: Spitting up blood History of Present Illness: Ms. Villeda is a 56 yo F w/ PMHx of DM, HTN, CHF, previous gastroparesis and CVA w/ R sided weakness (11/2021) who presented to the [facility] with concern about coughing up blood that appears to be hematemesis. She originally presented to [facility] ER on Sunday (06/21) after spitting up blood which progressed to vomitting blood and patient was sent to [facility]. She reports that for the past couple weeks she has been vomiting gastric contents multiple times per day without bilious emesis or hematemesis. She reports that she is felt like food, both liquid and solid, is getting stuck in her throat then coming back up. She says she reports that she has been using some Phenergan at home for her vomiting and has also been taking hydrocodone along with large doses of aspirin. At [facility], vital signs were notable for mild tachycardia and hypertension 160s over 90s. Chest x-ray was unremarkable. CT chest abdomen and pelvis showed marked circumferential wall thickening diffusely in the esophagus compressing the lumen with mild edematous changes around the esophagus. Mild amount of air was also seen in the anterior urinary bladder and nonspecific changes of the spleen including heterogeneous parenchymal appearance and lobulated contours were also noted. Patient underwent EGD on 06/21 with findings of large blood clot in the esophagus, tethered to the esophageal wall. Findings concerning for large Belinda-Jamil tear or even Boerhaave syndrome. Melenic material in stomach. No fresh blood or active bleeding noted. [facility] was contacted for further care due to unavailability of gastroenterology consultation. At [facility] Patient was continued on pantoprazole drip, remain NPO. Commenced on cefepime and fluconazole. Urinalysis also was concerning for UTI for which she was on antibiotics.GI recommended transfer to [facility] for cardiothoracic evaluation as patient was deemed to be high risk for esophageal perforation.She was subsequently transferred to [facility]. Review of Systems: Constitutional: no fevers, no chillsEyes: no blurring of vision, no loss of vision in either eyeEars/Nose/Throat: no hearing loss, no changes in voice, feeling like food is getting stuckCV: no palpitations, no chest pain, history of HTN and CVARespiratory: no shortness of breath, no coughGI: nausea, spitting up bloodGU: no difficulty urinating, no burning during urinationMSK: no joint stiffness, strong back painSkin: no rashes, no hivesNeuro: no headaches, no numbness/tinglingPsych: no depression, no sleep disturbancesEndo: no excessive sweating, no excessive thirst Problem List/Past Medical History: Ongoing Acute blood loss anemia Acute UTI Diabetes Hypokalemia Hypophosphatemia Social History: Alcohol Never Electronic Cigarette/Vaping Electronic Cigarette Use: Never. Employment/School Status: Retired. Substance Abuse Use: None. Tobacco Use: Current every day smoker. Type: Cigarettes. Ready to change: No. Household tobacco concerns: No. Tobacco smoke exposure: None. Did the Patient Smoke Cigarettes Anytime During the Last 365 Days? Yes. Cessation Counseling Provided? No. Allergies: No Known Medication Allergies Home Medications: fluconazole, 200 mg= 100 mL, IV, [id number] metFORMIN 750 mg oral tablet, extended release, 750 mg= 1 tab, PO, Daily Physical Exam: Vitals and Measurements T: 99 F (Axillary) HR: 82 (Apical) RR: 26 BP: 137/79 SpO2: 97% WT: 69.001 kg BMI: 26.11 Neuro: in no apparent distress, alert and orientedHead: normocephalic, atraumaticEyes: extraocular movements intact, pupils equal, round, and reactive to lightNeck: supple, full range of motionCV: regular rate and rhythmPulmonary: normal respiratory effort, symmetric chest riseAbdomen: soft, non-tender, non-distendedExtremities: no edema, motor/sensation grossly intactSkin: normal temperature; no abrasionsVascular: palpable distal pulses in all extremities Pertinent Labs: Test Name Test Result Date/Time Hgb 8.6 g/dL (Low) 06/23/2022 03:40 CDT Hgb 8.7 g/dL (Low) 06/22/2022 12:06 CDT Hct 25.6 % (Low) 06/23/2022 03:40 CDT Hct 26.4 % (Low) 06/22/2022 12:06 CDT Pertinent Imaging: (06/20/2022 21:30 CDT Chest/Abdomen/Pelvis w contrast CT)IMPRESSION: CT Chest With Contrast; Diagnostic Marked circumferential [...] appear chronic in nature. Please evaluate clinically. [1] (06/22/2022 16:51 CDT Upper GI Series w water soluble DX)In the semi-erect supine position, dilute Omnipaque was ingested and multiple digital images were obtained. The upper cervical esophagus appears normal. Beginning at the level of the aortic arch, there is minimal opacification of the remainder of the esophagus which appears dilated with apparent large intraluminal filling defect. This corresponds to the hemorrhagic clot noted at endoscopy.Small amount of contrast bypasses this area to minimally opacify the stomach. No mediastinal contrast extravasation. [2] Assessment/Plan: Ms. Villeda is a 56 yo F w/ PMHx of DM, HTN, CHF, previous gastroparesis and CVA w/ R sided weakness (11/2021) who presented to the [facility] with hematemasis and was then transfered to [facility] and subsequently [facility]. Patient currently has large blood clot on esophageal wall. Patient is currently stable and being evaluated by CT surgery and GI for management of hematemesis w/ concern for elevated risk of perforation. #Hematemesis- GI Recs: -No indication for EGD at this time -Pending CT surgery evaluation -Keep patient NPO and continue PPN -Continue PPI gtt and antiemetics as needed -Transfuse to mantain hgb > 7 and plt > 50- CT surgery has been consulted. Pending recs- Scheduled Phenergan to mitigate nausea and avoid vomiting- NPO- maintenance fluids while NPO- PPN in the AM # Acute blood loss anemia- will trend H&H q6h- monitor for need of transfusion or acute blood loss Esophageal tear (S11.21XA) [1] Chest/Abdomen/Pelvis w contrast CT; Dontae Croft MD 06/20/2022 21:30 CDT [2] Upper GI Series w water soluble DX; Toñito Weiss MD 06/22/2022 16:51 CDT Neftali Hernandez MDElectronically Signed: 06/26/22 15:20Marcos Read MDElectronically Signed: 06/23/22 16:[id number] and physicalLNHistory and physicalTXTAVAvailable for patient [id number] and physicalLNMHIEWoman's Hospital of [place]2022-11-01T22:14:18 2022-07-02 20:45:00 [id number]:45:00Marcos Read [facility] RUDD: Fina MCHUGH, Joy Lopes MD: PERFORMEvent Display: History and PhysicalAuthored Date: [id number] and Physical Primary Team Name: Medicine Team BTeam Contact Info: [id number] Contact info:Family contact info: Code Status: Full Resuscitation Chief Complaint: Spitting up blood History of Present Illness: Ms. Villeda is a 56 yo F w/ PMHx of DM, HTN, CHF, previous gastroparesis and CVA w/ R sided weakness (11/2021) who presented to the [facility] with concern about coughing up blood that appears to be hematemesis. She originally presented to [facility] ER on Sunday (06/21) after spitting up blood which progressed to vomitting blood and patient was sent to [facility]. She reports that for the past couple weeks she has been vomiting gastric contents multiple times per day without bilious emesis or hematemesis. She reports that she is felt like food, both liquid and solid, is getting stuck in her throat then coming back up. She says she reports that she has been using some Phenergan at home for her vomiting and has also been taking hydrocodone along with large doses of aspirin. At [facility], vital signs were notable for mild tachycardia and hypertension 160s over 90s. Chest x-ray was unremarkable. CT chest abdomen and pelvis showed marked circumferential wall thickening diffusely in the esophagus compressing the lumen with mild edematous changes around the esophagus. Mild amount of air was also seen in the anterior urinary bladder and nonspecific changes of the spleen including heterogeneous parenchymal appearance and lobulated contours were also noted. Patient underwent EGD on 06/21 with findings of large blood clot in the esophagus, tethered to the esophageal wall. Findings concerning for large Belinda-Jamil tear or even Boerhaave syndrome. Melenic material in stomach. No fresh blood or active bleeding noted. [facility] was contacted for further care due to unavailability of gastroenterology consultation. At [facility] Patient was continued on pantoprazole drip, remain NPO. Commenced on cefepime and fluconazole. Urinalysis also was concerning for UTI for which she was on antibiotics.GI recommended transfer to [facility] for cardiothoracic evaluation as patient was deemed to be high risk for esophageal perforation.She was subsequently transferred to [facility]. Review of Systems: Constitutional: no fevers, no chillsEyes: no blurring of vision, no loss of vision in either eyeEars/Nose/Throat: no hearing loss, no changes in voice, feeling like food is getting stuckCV: no palpitations, no chest pain, history of HTN and CVARespiratory: no shortness of breath, no coughGI: nausea, spitting up bloodGU: no difficulty urinating, no burning during urinationMSK: no joint stiffness, strong back painSkin: no rashes, no hivesNeuro: no headaches, no numbness/tinglingPsych: no depression, no sleep disturbancesEndo: no excessive sweating, no excessive thirst Problem List/Past Medical History: Ongoing Acute blood loss anemia Acute UTI Diabetes Hypokalemia Hypophosphatemia Social History: Alcohol Never Electronic Cigarette/Vaping Electronic Cigarette Use: Never. Employment/School Status: Retired. Substance Abuse Use: None. Tobacco Use: Current every day smoker. Type: Cigarettes. Ready to change: No. Household tobacco concerns: No. Tobacco smoke exposure: None. Did the Patient Smoke Cigarettes Anytime During the Last 365 Days? Yes. Cessation Counseling Provided? No. Allergies: No Known Medication Allergies Home Medications: fluconazole, 200 mg= 100 mL, IV, [id number] metFORMIN 750 mg oral tablet, extended release, 750 mg= 1 tab, PO, Daily Physical Exam: Vitals and Measurements T: 99 F (Axillary) HR: 82 (Apical) RR: 26 BP: 137/79 SpO2: 97% WT: 69.001 kg BMI: 26.11 Neuro: in no apparent distress, alert and orientedHead: normocephalic, atraumaticEyes: extraocular movements intact, pupils equal, round, and reactive to lightNeck: supple, full range of motionCV: regular rate and rhythmPulmonary: normal respiratory effort, symmetric chest riseAbdomen: soft, non-tender, non-distendedExtremities: no edema, motor/sensation grossly intactSkin: normal temperature; no abrasionsVascular: palpable distal pulses in all extremities Pertinent Labs: Test Name Test Result Date/Time Hgb 8.6 g/dL (Low) 06/23/2022 03:40 CDT Hgb 8.7 g/dL (Low) 06/22/2022 12:06 CDT Hct 25.6 % (Low) 06/23/2022 03:40 CDT Hct 26.4 % (Low) 06/22/2022 12:06 CDT Pertinent Imaging: (06/20/2022 21:30 CDT Chest/Abdomen/Pelvis w contrast CT)IMPRESSION: CT Chest With Contrast; Diagnostic Marked circumferential [...] appear chronic in nature. Please evaluate clinically. [1] (06/22/2022 16:51 CDT Upper GI Series w water soluble DX)In the semi-erect supine position, dilute Omnipaque was ingested and multiple digital images were obtained. The upper cervical esophagus appears normal. Beginning at the level of the aortic arch, there is minimal opacification of the remainder of the esophagus which appears dilated with apparent large intraluminal filling defect. This corresponds to the hemorrhagic clot noted at endoscopy.Small amount of contrast bypasses this area to minimally opacify the stomach. No mediastinal contrast extravasation. [2] Assessment/Plan: Ms. Villeda is a 56 yo F w/ PMHx of DM, HTN, CHF, previous gastroparesis and CVA w/ R sided weakness (11/2021) who presented to the [facility] with hematemasis and was then transfered to [facility] and subsequently [facility]. Patient currently has large blood clot on esophageal wall. Patient is currently stable and being evaluated by CT surgery and GI for management of hematemesis w/ concern for elevated risk of perforation. #Hematemesis- GI Recs: -No indication for EGD at this time -Pending CT surgery evaluation -Keep patient NPO and continue PPN -Continue PPI gtt and antiemetics as needed -Transfuse to mantain hgb > 7 and plt > 50- CT surgery has been consulted. Pending recs- Scheduled Phenergan to mitigate nausea and avoid vomiting- NPO- maintenance fluids while NPO- PPN in the AM # Acute blood loss anemia- will trend H&H q6h- monitor for need of transfusion or acute blood loss Esophageal tear (S11.21XA) [1] Chest/Abdomen/Pelvis w contrast CT; Dontae Croft MD 06/20/2022 21:30 CDT [2] Upper GI Series w water soluble DX; Toñito Weiss MD 06/22/2022 16:51 CDT Neftali Hernandez MDElectronically Signed: 06/26/22 15:20Marcos Read MDElectronically Signed: 06/23/22 [id number] and physicalLNHistory and physicalTXTAVAvailable for patient [id number] and physicalLNIEWoman's Hospital of [place]2022-11-01T22:14:18 2022-07-02 20:45:00 [id number]:45:00Marcos Read [facility] RUDD: [facility] Elmer Victor MD: PERFORMEvent Display: History and PhysicalAuthored Date: [id number] and Physical Primary Team Name: Medicine Team BTea Contact Info: [id number] Contact info:Family contact info: Code Status: Full Resuscitation Chief Complaint: Spitting up blood History of Present Illness: Ms. Villeda is a 56 yo F w/ PMHx of DM, HTN, CHF, previous gastroparesis and CVA w/ R sided weakness (11/2021) who presented to the [facility] with concern about coughing up blood that appears to be hematemesis. She originally presented to [facility] ER on Sunday (06/21) after spitting up blood which progressed to vomitting blood and patient was sent to [facility]. She reports that for the past couple weeks she has been vomiting gastric contents multiple times per day without bilious emesis or hematemesis. She reports that she is felt like food, both liquid and solid, is getting stuck in her throat then coming back up. She says she reports that she has been using some Phenergan at home for her vomiting and has also been taking hydrocodone along with large doses of aspirin. At [facility], vital signs were notable for mild tachycardia and hypertension 160s over 90s. Chest x-ray was unremarkable. CT chest abdomen and pelvis showed marked circumferential wall thickening diffusely in the esophagus compressing the lumen with mild edematous changes around the esophagus. Mild amount of air was also seen in the anterior urinary bladder and nonspecific changes of the spleen including heterogeneous parenchymal appearance and lobulated contours were also noted. Patient underwent EGD on 06/21 with findings of large blood clot in the esophagus, tethered to the esophageal wall. Findings concerning for large Belinda-Jamil tear or even Boerhaave syndrome. Melenic material in stomach. No fresh blood or active bleeding noted. [facility] was contacted for further care due to unavailability of gastroenterology consultation. At [facility] Patient was continued on pantoprazole drip, remain NPO. Commenced on cefepime and fluconazole. Urinalysis also was concerning for UTI for which she was on antibiotics.GI recommended transfer to [facility] for cardiothoracic evaluation as patient was deemed to be high risk for esophageal perforation.She was subsequently transferred to [facility]. Review of Systems: Constitutional: no fevers, no chillsEyes: no blurring of vision, no loss of vision in either eyeEars/Nose/Throat: no hearing loss, no changes in voice, feeling like food is getting stuckCV: no palpitations, no chest pain, history of HTN and CVARespiratory: no shortness of breath, no coughGI: nausea, spitting up bloodGU: no difficulty urinating, no burning during urinationMSK: no joint stiffness, strong back painSkin: no rashes, no hivesNeuro: no headaches, no numbness/tinglingPsych: no depression, no sleep disturbancesEndo: no excessive sweating, no excessive thirst Problem List/Past Medical History: Ongoing Acute blood loss anemia Acute UTI Diabetes Hypokalemia Hypophosphatemia Social History: Alcohol Never Electronic Cigarette/Vaping Electronic Cigarette Use: Never. Employment/School Status: Retired. Substance Abuse Use: None. Tobacco Use: Current every day smoker. Type: Cigarettes. Ready to change: No. Household tobacco concerns: No. Tobacco smoke exposure: None. Did the Patient Smoke Cigarettes Anytime During the Last 365 Days? Yes. Cessation Counseling Provided? No. Allergies: No Known Medication Allergies Home Medications: fluconazole, 200 mg= 100 mL, IV, [id number] metFORMIN 750 mg oral tablet, extended release, 750 mg= 1 tab, PO, Daily Physical Exam: Vitals and Measurements T: 99 F (Axillary) HR: 82 (Apical) RR: 26 BP: 137/79 SpO2: 97% WT: 69.001 kg BMI: 26.11 Neuro: in no apparent distress, alert and orientedHead: normocephalic, atraumaticEyes: extraocular movements intact, pupils equal, round, and reactive to lightNeck: supple, full range of motionCV: regular rate and rhythmPulmonary: normal respiratory effort, symmetric chest riseAbdomen: soft, non-tender, non-distendedExtremities: no edema, motor/sensation grossly intactSkin: normal temperature; no abrasionsVascular: palpable distal pulses in all extremities Pertinent Labs: Test Name Test Result Date/Time Hgb 8.6 g/dL (Low) 06/23/2022 03:40 CDT Hgb 8.7 g/dL (Low) 06/22/2022 12:06 CDT Hct 25.6 % (Low) 06/23/2022 03:40 CDT Hct 26.4 % (Low) 06/22/2022 12:06 CDT Pertinent Imaging: (06/20/2022 21:30 CDT Chest/Abdomen/Pelvis w contrast CT)IMPRESSION: CT Chest With Contrast; Diagnostic Marked circumferential [...] appear chronic in nature. Please evaluate clinically. [1] (06/22/2022 16:51 CDT Upper GI Series w water soluble DX)In the semi-erect supine position, dilute Omnipaque was ingested and multiple digital images were obtained. The upper cervical esophagus appears normal. Beginning at the level of the aortic arch, there is minimal opacification of the remainder of the esophagus which appears dilated with apparent large intraluminal filling defect. This corresponds to the hemorrhagic clot noted at endoscopy.Small amount of contrast bypasses this area to minimally opacify the stomach. No mediastinal contrast extravasation. [2] Assessment/Plan: Ms. Villeda is a 56 yo F w/ PMHx of DM, HTN, CHF, previous gastroparesis and CVA w/ R sided weakness (11/2021) who presented to the [facility] with hematemasis and was then transfered to [facility] and subsequently [facility]. Patient currently has large blood clot on esophageal wall. Patient is currently stable and being evaluated by CT surgery and GI for management of hematemesis w/ concern for elevated risk of perforation. #Hematemesis- GI Recs: -No indication for EGD at this time -Pending CT surgery evaluation -Keep patient NPO and continue PPN -Continue PPI gtt and antiemetics as needed -Transfuse to mantain hgb > 7 and plt > 50- CT surgery has been consulted. Pending recs- Scheduled Phenergan to mitigate nausea and avoid vomiting- NPO- maintenance fluids while NPO- PPN in the AM # Acute blood loss anemia- will trend H&H q6h- monitor for need of transfusion or acute blood loss Esophageal tear (S11.21XA) [1] Chest/Abdomen/Pelvis w contrast CT; Dontae Croft MD 06/20/2022 21:30 CDT [2] Upper GI Series w water soluble DX; Toñito Weiss MD 06/22/2022 16:51 CDT Neftali Hernandez MDElectronically Signed: 06/26/22 15:20Marcos Read MDElectronically Signed: 06/23/22 16:[id number] and physicalLNHistory and physicalTXTAVAvailable for patient [id number] and physicalLNMHIEWoman's Hospital of [place]2022-11-01T22:14:18 2022-07-02 20:45:00 [id number]:45:00Marcos Read [facility] RUDD: [facility] Elmer Victor MD: PERFORMEvent Display: History and PhysicalAuthored Date: [id number] and Physical Primary Team Name: Medicine Team BTeam Contact Info: [id number] Contact info:Family contact info: Code Status: Full Resuscitation Chief Complaint: Spitting up blood History of Present Illness: Ms. Villeda is a 56 yo F w/ PMHx of DM, HTN, CHF, previous gastroparesis and CVA w/ R sided weakness (11/2021) who presented to the [facility] with concern about coughing up blood that appears to be hematemesis. She originally presented to [facility] ER on Sunday (06/21) after spitting up blood which progressed to vomitting blood and patient was sent to [facility]. She reports that for the past couple weeks she has been vomiting gastric contents multiple times per day without bilious emesis or hematemesis. She reports that she is felt like food, both liquid and solid, is getting stuck in her throat then coming back up. She says she reports that she has been using some Phenergan at home for her vomiting and has also been taking hydrocodone along with large doses of aspirin. At [facility], vital signs were notable for mild tachycardia and hypertension 160s over 90s. Chest x-ray was unremarkable. CT chest abdomen and pelvis showed marked circumferential wall thickening diffusely in the esophagus compressing the lumen with mild edematous changes around the esophagus. Mild amount of air was also seen in the anterior urinary bladder and nonspecific changes of the spleen including heterogeneous parenchymal appearance and lobulated contours were also noted. Patient underwent EGD on 06/21 with findings of large blood clot in the esophagus, tethered to the esophageal wall. Findings concerning for large Belinda-Jamil tear or even Boerhaave syndrome. Melenic material in stomach. No fresh blood or active bleeding noted. [facility] was contacted for further care due to unavailability of gastroenterology consultation. At [facility] Patient was continued on pantoprazole drip, remain NPO. Commenced on cefepime and fluconazole. Urinalysis also was concerning for UTI for which she was on antibiotics.GI recommended transfer to [facility] for cardiothoracic evaluation as patient was deemed to be high risk for esophageal perforation.She was subsequently transferred to [facility]. Review of Systems: Constitutional: no fevers, no chillsEyes: no blurring of vision, no loss of vision in either eyeEars/Nose/Throat: no hearing loss, no changes in voice, feeling like food is getting stuckCV: no palpitations, no chest pain, history of HTN and CVARespiratory: no shortness of breath, no coughGI: nausea, spitting up bloodGU: no difficulty urinating, no burning during urinationMSK: no joint stiffness, strong back painSkin: no rashes, no hivesNeuro: no headaches, no numbness/tinglingPsych: no depression, no sleep disturbancesEndo: no excessive sweating, no excessive thirst Problem List/Past Medical History: Ongoing Acute blood loss anemia Acute UTI Diabetes Hypokalemia Hypophosphatemia Social History: Alcohol Never Electronic Cigarette/Vaping Electronic Cigarette Use: Never. Employment/School Status: Retired. Substance Abuse Use: None. Tobacco Use: Current every day smoker. Type: Cigarettes. Ready to change: No. Household tobacco concerns: No. Tobacco smoke exposure: None. Did the Patient Smoke Cigarettes Anytime During the Last 365 Days? Yes. Cessation Counseling Provided? No. Allergies: No Known Medication Allergies Home Medications: fluconazole, 200 mg= 100 mL, IV, [id number] metFORMIN 750 mg oral tablet, extended release, 750 mg= 1 tab, PO, Daily Physical Exam: Vitals and Measurements T: 99 F (Axillary) HR: 82 (Apical) RR: 26 BP: 137/79 SpO2: 97% WT: 69.001 kg BMI: 26.11 Neuro: in no apparent distress, alert and orientedHead: normocephalic, atraumaticEyes: extraocular movements intact, pupils equal, round, and reactive to lightNeck: supple, full range of motionCV: regular rate and rhythmPulmonary: normal respiratory effort, symmetric chest riseAbdomen: soft, non-tender, non-distendedExtremities: no edema, motor/sensation grossly intactSkin: normal temperature; no abrasionsVascular: palpable distal pulses in all extremities Pertinent Labs: Test Name Test Result Date/Time Hgb 8.6 g/dL (Low) 06/23/2022 03:40 CDT Hgb 8.7 g/dL (Low) 06/22/2022 12:06 CDT Hct 25.6 % (Low) 06/23/2022 03:40 CDT Hct 26.4 % (Low) 06/22/2022 12:06 CDT Pertinent Imaging: (06/20/2022 21:30 CDT Chest/Abdomen/Pelvis w contrast CT)IMPRESSION: CT Chest With Contrast; Diagnostic Marked circumferential [...] appear chronic in nature. Please evaluate clinically. [1] (06/22/2022 16:51 CDT Upper GI Series w water soluble DX)In the semi-erect supine position, dilute Omnipaque was ingested and multiple digital images were obtained. The upper cervical esophagus appears normal. Beginning at the level of the aortic arch, there is minimal opacification of the remainder of the esophagus which appears dilated with apparent large intraluminal filling defect. This corresponds to the hemorrhagic clot noted at endoscopy.Small amount of contrast bypasses this area to minimally opacify the stomach. No mediastinal contrast extravasation. [2] Assessment/Plan: Ms. Villeda is a 56 yo F w/ PMHx of DM, HTN, CHF, previous gastroparesis and CVA w/ R sided weakness (11/2021) who presented to the [facility] with hematemasis and was then transfered to [facility] and subsequently [facility]. Patient currently has large blood clot on esophageal wall. Patient is currently stable and being evaluated by CT surgery and GI for management of hematemesis w/ concern for elevated risk of perforation. #Hematemesis- GI Recs: -No indication for EGD at this time -Pending CT surgery evaluation -Keep patient NPO and continue PPN -Continue PPI gtt and antiemetics as needed -Transfuse to mantain hgb > 7 and plt > 50- CT surgery has been consulted. Pending recs- Scheduled Phenergan to mitigate nausea and avoid vomiting- NPO- maintenance fluids while NPO- PPN in the AM # Acute blood loss anemia- will trend H&H q6h- monitor for need of transfusion or acute blood loss Esophageal tear (S11.21XA) [1] Chest/Abdomen/Pelvis w contrast CT; Dontae Croft MD 06/20/2022 21:30 CDT [2] Upper GI Series w water soluble DX; Toñito Weiss MD 06/22/2022 16:51 CDT Neftali Hernandez MDElectronically Signed: 06/26/22 15:20Marcos Read MDElectronically Signed: 06/23/22 16:[id number] and physicalLNHistory and physicalTXTAVAvailable for patient [id number] and physicalLNMHIEWoman's Hospital of [place]2022-11-01T22:14:18 2022-07-02 20:45:00 [id number]:45:00Marcos Read [facility] Jody Mujica MD: [facility] Neftali Lopes MD: PERFORMEvent Display: History and PhysicalAuthored Date: [id number] and Physical Primary Team Name: Medicine Team BTeam Contact Info: [id number] Contact info:Family contact info: Code Status: Full Resuscitation Chief Complaint: Spitting up blood History of Present Illness: Ms. Villeda is a 56 yo F w/ PMHx of DM, HTN, CHF, previous gastroparesis and CVA w/ R sided weakness (11/2021) who presented to the [facility] with concern about coughing up blood that appears to be hematemesis. She originally presented to [facility] ER on Sunday (06/21) after spitting up blood which progressed to vomitting blood and patient was sent to [facility]. She reports that for the past couple weeks she has been vomiting gastric contents multiple times per day without bilious emesis or hematemesis. She reports that she is felt like food, both liquid and solid, is getting stuck in her throat then coming back up. She says she reports that she has been using some Phenergan at home for her vomiting and has also been taking hydrocodone along with large doses of aspirin. At [facility], vital signs were notable for mild tachycardia and hypertension 160s over 90s. Chest x-ray was unremarkable. CT chest abdomen and pelvis showed marked circumferential wall thickening diffusely in the esophagus compressing the lumen with mild edematous changes around the esophagus. Mild amount of air was also seen in the anterior urinary bladder and nonspecific changes of the spleen including heterogeneous parenchymal appearance and lobulated contours were also noted. Patient underwent EGD on 06/21 with findings of large blood clot in the esophagus, tethered to the esophageal wall. Findings concerning for large Belinda-Jamil tear or even Boerhaave syndrome. Melenic material in stomach. No fresh blood or active bleeding noted. [facility] was contacted for further care due to unavailability of gastroenterology consultation. At [facility] Patient was continued on pantoprazole drip, remain NPO. Commenced on cefepime and fluconazole. Urinalysis also was concerning for UTI for which she was on antibiotics.GI recommended transfer to [facility] for cardiothoracic evaluation as patient was deemed to be high risk for esophageal perforation.She was subsequently transferred to [facility]. Review of Systems: Constitutional: no fevers, no chillsEyes: no blurring of vision, no loss of vision in either eyeEars/Nose/Throat: no hearing loss, no changes in voice, feeling like food is getting stuckCV: no palpitations, no chest pain, history of HTN and CVARespiratory: no shortness of breath, no coughGI: nausea, spitting up bloodGU: no difficulty urinating, no burning during urinationMSK: no joint stiffness, strong back painSkin: no rashes, no hivesNeuro: no headaches, no numbness/tinglingPsych: no depression, no sleep disturbancesEndo: no excessive sweating, no excessive thirst Problem List/Past Medical History: Ongoing Acute blood loss anemia Acute UTI Diabetes Hypokalemia Hypophosphatemia Social History: Alcohol Never Electronic Cigarette/Vaping Electronic Cigarette Use: Never. Employment/School Status: Retired. Substance Abuse Use: None. Tobacco Use: Current every day smoker. Type: Cigarettes. Ready to change: No. Household tobacco concerns: No. Tobacco smoke exposure: None. Did the Patient Smoke Cigarettes Anytime During the Last 365 Days? Yes. Cessation Counseling Provided? No. Allergies: No Known Medication Allergies Home Medications: fluconazole, 200 mg= 100 mL, IV, [id number] metFORMIN 750 mg oral tablet, extended release, 750 mg= 1 tab, PO, Daily Physical Exam: Vitals and Measurements T: 99 F (Axillary) HR: 82 (Apical) RR: 26 BP: 137/79 SpO2: 97% WT: 69.001 kg BMI: 26.11 Neuro: in no apparent distress, alert and orientedHead: normocephalic, atraumaticEyes: extraocular movements intact, pupils equal, round, and reactive to lightNeck: supple, full range of motionCV: regular rate and rhythmPulmonary: normal respiratory effort, symmetric chest riseAbdomen: soft, non-tender, non-distendedExtremities: no edema, motor/sensation grossly intactSkin: normal temperature; no abrasionsVascular: palpable distal pulses in all extremities Pertinent Labs: Test Name Test Result Date/Time Hgb 8.6 g/dL (Low) 06/23/2022 03:40 CDT Hgb 8.7 g/dL (Low) 06/22/2022 12:06 CDT Hct 25.6 % (Low) 06/23/2022 03:40 CDT Hct 26.4 % (Low) 06/22/2022 12:06 CDT Pertinent Imaging: (06/20/2022 21:30 CDT Chest/Abdomen/Pelvis w contrast CT)IMPRESSION: CT Chest With Contrast; Diagnostic Marked circumferential [...] appear chronic in nature. Please evaluate clinically. [1] (06/22/2022 16:51 CDT Upper GI Series w water soluble DX)In the semi-erect supine position, dilute Omnipaque was ingested and multiple digital images were obtained. The upper cervical esophagus appears normal. Beginning at the level of the aortic arch, there is minimal opacification of the remainder of the esophagus which appears dilated with apparent large intraluminal filling defect. This corresponds to the hemorrhagic clot noted at endoscopy.Small amount of contrast bypasses this area to minimally opacify the stomach. No mediastinal contrast extravasation. [2] Assessment/Plan: Ms. Villeda is a 56 yo F w/ PMHx of DM, HTN, CHF, previous gastroparesis and CVA w/ R sided weakness (11/2021) who presented to the [facility] with hematemasis and was then transfered to [facility] and subsequently [facility]. Patient currently has large blood clot on esophageal wall. Patient is currently stable and being evaluated by CT surgery and GI for management of hematemesis w/ concern for elevated risk of perforation. #Hematemesis- GI Recs: -No indication for EGD at this time -Pending CT surgery evaluation -Keep patient NPO and continue PPN -Continue PPI gtt and antiemetics as needed -Transfuse to mantain hgb > 7 and plt > 50- CT surgery has been consulted. Pending recs- Scheduled Phenergan to mitigate nausea and avoid vomiting- NPO- maintenance fluids while NPO- PPN in the AM # Acute blood loss anemia- will trend H&H q6h- monitor for need of transfusion or acute blood loss Esophageal tear (S11.21XA) [1] Chest/Abdomen/Pelvis w contrast CT; Dontae Croft MD 06/20/2022 21:30 CDT [2] Upper GI Series w water soluble DX; Toñito Weiss MD 06/22/2022 16:51 CDT eNftali Hernandez MDElectronically Signed: 06/26/22 15:20Marcos Read MDElectronically Signed: 06/23/22 16:[id number] and physicalLNHistory and physicalTXTAVAvailable for patient [id number] and physicalLNMHIEWoman's Hospital of [place]2022-11-01T22:14:18 2022-07-02 20:45:00 [id number]:45:00Marcos Read [facility] RUDD: [facility] Neftali Lopes MD: PERFORMEvent Display: History and PhysicalAuthored Date: [id number] and Physical Primary Team Name: Medicine Team BTeam Contact Info: [id number] Contact info:Family contact info: Code Status: Full Resuscitation Chief Complaint: Spitting up blood History of Present Illness: Ms. Villeda is a 56 yo F w/ PMHx of DM, HTN, CHF, previous gastroparesis and CVA w/ R sided weakness (11/2021) who presented to the [facility] with concern about coughing up blood that appears to be hematemesis. She originally presented to [facility] ER on Sunday (06/21) after spitting up blood which progressed to vomitting blood and patient was sent to [facility]. She reports that for the past couple weeks she has been vomiting gastric contents multiple times per day without bilious emesis or hematemesis. She reports that she is felt like food, both liquid and solid, is getting stuck in her throat then coming back up. She says she reports that she has been using some Phenergan at home for her vomiting and has also been taking hydrocodone along with large doses of aspirin. At [facility], vital signs were notable for mild tachycardia and hypertension 160s over 90s. Chest x-ray was unremarkable. CT chest abdomen and pelvis showed marked circumferential wall thickening diffusely in the esophagus compressing the lumen with mild edematous changes around the esophagus. Mild amount of air was also seen in the anterior urinary bladder and nonspecific changes of the spleen including heterogeneous parenchymal appearance and lobulated contours were also noted. Patient underwent EGD on 06/21 with findings of large blood clot in the esophagus, tethered to the esophageal wall. Findings concerning for large Belinda-Jamil tear or even Boerhaave syndrome. Melenic material in stomach. No fresh blood or active bleeding noted. [facility] was contacted for further care due to unavailability of gastroenterology consultation. At [facility] Patient was continued on pantoprazole drip, remain NPO. Commenced on cefepime and fluconazole. Urinalysis also was concerning for UTI for which she was on antibiotics.GI recommended transfer to [facility] for cardiothoracic evaluation as patient was deemed to be high risk for esophageal perforation.She was subsequently transferred to [facility]. Review of Systems: Constitutional: no fevers, no chillsEyes: no blurring of vision, no loss of vision in either eyeEars/Nose/Throat: no hearing loss, no changes in voice, feeling like food is getting stuckCV: no palpitations, no chest pain, history of HTN and CVARespiratory: no shortness of breath, no coughGI: nausea, spitting up bloodGU: no difficulty urinating, no burning during urinationMSK: no joint stiffness, strong back painSkin: no rashes, no hivesNeuro: no headaches, no numbness/tinglingPsych: no depression, no sleep disturbancesEndo: no excessive sweating, no excessive thirst Problem List/Past Medical History: Ongoing Acute blood loss anemia Acute UTI Diabetes Hypokalemia Hypophosphatemia Social History: Alcohol Never Electronic Cigarette/Vaping Electronic Cigarette Use: Never. Employment/School Status: Retired. Substance Abuse Use: None. Tobacco Use: Current every day smoker. Type: Cigarettes. Ready to change: No. Household tobacco concerns: No. Tobacco smoke exposure: None. Did the Patient Smoke Cigarettes Anytime During the Last 365 Days? Yes. Cessation Counseling Provided? No. Allergies: No Known Medication Allergies Home Medications: fluconazole, 200 mg= 100 mL, IV, [id number] metFORMIN 750 mg oral tablet, extended release, 750 mg= 1 tab, PO, Daily Physical Exam: Vitals and Measurements T: 99 F (Axillary) HR: 82 (Apical) RR: 26 BP: 137/79 SpO2: 97% WT: 69.001 kg BMI: 26.11 Neuro: in no apparent distress, alert and orientedHead: normocephalic, atraumaticEyes: extraocular movements intact, pupils equal, round, and reactive to lightNeck: supple, full range of motionCV: regular rate and rhythmPulmonary: normal respiratory effort, symmetric chest riseAbdomen: soft, non-tender, non-distendedExtremities: no edema, motor/sensation grossly intactSkin: normal temperature; no abrasionsVascular: palpable distal pulses in all extremities Pertinent Labs: Test Name Test Result Date/Time Hgb 8.6 g/dL (Low) 06/23/2022 03:40 CDT Hgb 8.7 g/dL (Low) 06/22/2022 12:06 CDT Hct 25.6 % (Low) 06/23/2022 03:40 CDT Hct 26.4 % (Low) 06/22/2022 12:06 CDT Pertinent Imaging: (06/20/2022 21:30 CDT Chest/Abdomen/Pelvis w contrast CT)IMPRESSION: CT Chest With Contrast; Diagnostic Marked circumferential [...] appear chronic in nature. Please evaluate clinically. [1] (06/22/2022 16:51 CDT Upper GI Series w water soluble DX)In the semi-erect supine position, dilute Omnipaque was ingested and multiple digital images were obtained. The upper cervical esophagus appears normal. Beginning at the level of the aortic arch, there is minimal opacification of the remainder of the esophagus which appears dilated with apparent large intraluminal filling defect. This corresponds to the hemorrhagic clot noted at endoscopy.Small amount of contrast bypasses this area to minimally opacify the stomach. No mediastinal contrast extravasation. [2] Assessment/Plan: Ms. Villeda is a 56 yo F w/ PMHx of DM, HTN, CHF, previous gastroparesis and CVA w/ R sided weakness (11/2021) who presented to the [facility] with hematemasis and was then transfered to [facility] and subsequently [facility]. Patient currently has large blood clot on esophageal wall. Patient is currently stable and being evaluated by CT surgery and GI for management of hematemesis w/ concern for elevated risk of perforation. #Hematemesis- GI Recs: -No indication for EGD at this time -Pending CT surgery evaluation -Keep patient NPO and continue PPN -Continue PPI gtt and antiemetics as needed -Transfuse to mantain hgb > 7 and plt > 50- CT surgery has been consulted. Pending recs- Scheduled Phenergan to mitigate nausea and avoid vomiting- NPO- maintenance fluids while NPO- PPN in the AM # Acute blood loss anemia- will trend H&H q6h- monitor for need of transfusion or acute blood loss Esophageal tear (S11.21XA) [1] Chest/Abdomen/Pelvis w contrast CT; Dontae Croft MD 06/20/2022 21:30 CDT [2] Upper GI Series w water soluble DX; Toñito Weiss MD 06/22/2022 16:51 CDT Neftali Hernandez MDElectronically Signed: 06/26/22 15:20Marcos Read MDElectronically Signed: 06/23/22 [id number] and physicalLNHistory and physicalTXTAVAvailable for patient [id number] and physicalLNMHIEWoman's Hospital of [place]2022-11-01T22:14:18 2022-06-23 19:00:00 [id number]:00:00Max Puentes [facility] Tevin RUDD: PERFORM, MODIFYEvent Display: History and PhysicalAuthored Date: [id number] and Physical Team Contact Info: Hospitalist MedicineDOS: 06/21/22 Code Status: None Specified=FULL CODE Chief Complaint: Spitting up blood History of Present Illness: Ms. Villeda is a 56 yo F w/ PMHx of DM and CVA w/ R sided weakness (11/2021) who presented to the [facility] with concern about coughing up blood that appears to be hematemesis. She reports that for the past 2 weeks she has been vomiting gastric contents multiple times per day without bilious emesis or hematemesis. She reports that she is felt like food is getting stuck in her throat for the past week and that she has had 20 pounds of unintentional weight loss in the past month. At 5 PM this evening she began spitting up bright red blood which has persisted since that time. She denies any other symptoms. She reports that she has been using some Phenergan at home for her vomiting but denies any rudq-ikd-dvbwell medications. At [facility], vital signs were notable for mild tachycardia and hypertension 160s over 90s. Chest x-ray was unremarkable. CT chest abdomen and pelvis showed marked circumferential wall thickening diffusely in the esophagus compressing the lumen with mild edematous changes around the esophagus. Mild amount of air was also seen in the anterior urinary bladder and nonspecific changes of the spleen including heterogeneous parenchymal appearance and lobulated contours were also noted. Laboratory studies included WBC 16.9, hemoglobin 13, platelets 488, INR 1, creatinine 0.6, BUN 16. She was started on octreotide and pantoprazole drips. [facility] was contacted for further care due to unavailability of gastroenterology consultation. Review of Systems: Full 10 system ROS performed, pertinent positives and negatives documented in HPI Problem List/Past Medical History: DMCVA Procedure/Surgical History: Lower back surgery Family History: No CAD or CA Social History: Reports she began smoking 1 ppd in 2019, has cut back to 1/3 ppdDenies alcohol or drugs Allergies: No Known Medication Allergies Home Medications: Metformin 750 mg dailyOzempic weekly Physical Exam: Vitals and Measurements T: 98.2 F (Axillary) HR: 109 (Peripheral) RR: 20 BP: 154/99 SpO2: 98% WT: 69.091 kg BMI: 26.15 General Appearance: In mild distress, holding emesis back and spitting up / retching bright red bloodHead: Normocephalic, atraumaticEyes: No scleral icterus, extraocular movements grossly intactNose: Nares patent, no dischargeMouth: Moist mucous membranesNeck: Supple, no JVDChest Wall: No accessory muscle useLungs: CTA bilaterally, no wheezes/rales/rhonchi, good air entryHeart: Tachycardic, regular, no MRGsAbdomen: BSP, soft, NTNDMusculoskeletal: No obvious deformity. Moves all 4 extremitiesExtremities: Symmetric, no obvious defect, no edemaNeurologic: A&Ox4, clear speech, CN's grossly intact, strength grossly intactSkin: No jaundice, no rashPsych: Mood congruent affect, responds appropriately to questions Pertinent Labs: Reviewed Pertinent Imaging: (06/20/2022 20:36 CDT Chest 1view DX)IMPRESSION: No acute cardiopulmonary findings. [1] (06/20/2022 21:30 CDT Chest/Abdomen/Pelvis w contrast CT)IMPRESSION: CT Chest With Contrast; Diagnostic Marked circumferential [...] appear chronic in nature. Please evaluate clinically. [2] Assessment/Plan: 1. UGIB (upper gastrointestinal bleed) (K92.2) Admit as inpatient on telemetryHigh level of concern for esophageal cancer vs severe esophagitis given CT findings and unintentional weight lossGI consultedContinue pantoprazole and octreotide gtt'sNPOMIVFMonitor H&H and transfuse as needed Ordered: Admit/Condition, 06/21/22 4:09:00 CDT, Status: Inpatient, Telemetry Capable Location, Expected LOS: 2 Midnights, Max Puentes MD, Admit Review/Approve Yes, Isolation: No Isolation/Standard Precautions, UGIB (upper gastrointestinal bleed) | Esophageal thick... 2. Esophageal thickening (K22.89) As above Ordered: Admit/Condition, 06/21/22 4:09:00 CDT, Status: Inpatient, Telemetry Capable Location, Expected LOS: 2 Midnights, Max Puentes MD, Eliud RUDD Review/Approve Yes, Isolation: No Isolation/Standard Precautions, UGIB (upper gastrointestinal bleed) | Esophageal thick... 3. HTN (hypertension) (I10) Labetalol prn 4. Diabetes (E11.9) ISS q6h while NPO Prophylaxis SCD Disposition Anticipate discharge home[1] Chest 1view DX; Kwadwo Tran MD 06/20/2022 20:36 CDT [2] Chest/Abdomen/Pelvis w contrast CT; Dontae Croft MD 06/20/2022 21:30 CDT Max Puentes MDElectronically Signed: 06/21/22 04:[id number] and physicalLNHistory and physicalTXTAVAvailable for patient careAdventHealth Central [place]2022-10-23T22:47:29 2022-06-23 19:00:00 [id number]:00:00Shawn [facility] Aliza Iyer MD: PERFORMEvent Display: History and PhysicalAuthored Date: [id number] admitted by my colleague this morning. Patient seen and examined by me, she had bright red blood in her emesis breath, also with blood stains on clothing. Reports she has been coughing up blood. Continue patient on PPI and octreotide drip. Monitor H&H, awaiting GI evaluation.Aliza Escobar MDElectronically Signed: 06/21/22 15:[id number] and physicalLNHistory and physicalTXTAVAvailable for patient careAdventHealth Central [place]2022-10-23T22:47:29 2022-06-23 19:00:00 [id number]:00:00Max Puentes [facility] Tevin RUDD: PERFORM, MODIFYEvent Display: History and PhysicalAuthored Date: [id number] and Physical Team Contact Info: Hospitalist MedicineDOS: 06/21/22 Code Status: None Specified=FULL CODE Chief Complaint: Spitting up blood History of Present Illness: Ms. Villeda is a 56 yo F w/ PMHx of DM and CVA w/ R sided weakness (11/2021) who presented to the [facility] with concern about coughing up blood that appears to be hematemesis. She reports that for the past 2 weeks she has been vomiting gastric contents multiple times per day without bilious emesis or hematemesis. She reports that she is felt like food is getting stuck in her throat for the past week and that she has had 20 pounds of unintentional weight loss in the past month. At 5 PM this evening she began spitting up bright red blood which has persisted since that time. She denies any other symptoms. She reports that she has been using some Phenergan at home for her vomiting but denies any xgkg-lkc-vdebvet medications. At [facility], vital signs were notable for mild tachycardia and hypertension 160s over 90s. Chest x-ray was unremarkable. CT chest abdomen and pelvis showed marked circumferential wall thickening diffusely in the esophagus compressing the lumen with mild edematous changes around the esophagus. Mild amount of air was also seen in the anterior urinary bladder and nonspecific changes of the spleen including heterogeneous parenchymal appearance and lobulated contours were also noted. Laboratory studies included WBC 16.9, hemoglobin 13, platelets 488, INR 1, creatinine 0.6, BUN 16. She was started on octreotide and pantoprazole drips. [facility] was contacted for further care due to unavailability of gastroenterology consultation. Review of Systems: Full 10 system ROS performed, pertinent positives and negatives documented in HPI Problem List/Past Medical History: DMCVA Procedure/Surgical History: Lower back surgery Family History: No CAD or CA Social History: Reports she began smoking 1 ppd in 2019, has cut back to 1/3 ppdDenies alcohol or drugs Allergies: No Known Medication Allergies Home Medications: Metformin 750 mg dailyOzempic weekly Physical Exam: Vitals and Measurements T: 98.2 F (Axillary) HR: 109 (Peripheral) RR: 20 BP: 154/99 SpO2: 98% WT: 69.091 kg BMI: 26.15 General Appearance: In mild distress, holding emesis back and spitting up / retching bright red bloodHead: Normocephalic, atraumaticEyes: No scleral icterus, extraocular movements grossly intactNose: Nares patent, no dischargeMouth: Moist mucous membranesNeck: Supple, no JVDChest Wall: No accessory muscle useLungs: CTA bilaterally, no wheezes/rales/rhonchi, good air entryHeart: Tachycardic, regular, no MRGsAbdomen: BSP, soft, NTNDMusculoskeletal: No obvious deformity. Moves all 4 extremitiesExtremities: Symmetric, no obvious defect, no edemaNeurologic: A&Ox4, clear speech, CN's grossly intact, strength grossly intactSkin: No jaundice, no rashPsych: Mood congruent affect, responds appropriately to questions Pertinent Labs: Reviewed Pertinent Imaging: (06/20/2022 20:36 CDT Chest 1view DX)IMPRESSION: No acute cardiopulmonary findings. [1] (06/20/2022 21:30 CDT Chest/Abdomen/Pelvis w contrast CT)IMPRESSION: CT Chest With Contrast; Diagnostic Marked circumferential [...] appear chronic in nature. Please evaluate clinically. [2] Assessment/Plan: 1. UGIB (upper gastrointestinal bleed) (K92.2) Admit as inpatient on telemetryHigh level of concern for esophageal cancer vs severe esophagitis given CT findings and unintentional weight lossGI consultedContinue pantoprazole and octreotide gtt'sNPOMIVFMonitor H&H and transfuse as needed Ordered: Admit/Condition, 06/21/22 4:09:00 CDT, Status: Inpatient, Telemetry Capable Location, Expected LOS: 2 Midnights, Max Puentes MD, Eliud RUDD Review/Approve Yes, Isolation: No Isolation/Standard Precautions, UGIB (upper gastrointestinal bleed) | Esophageal thick... 2. Esophageal thickening (K22.89) As above Ordered: Admit/Condition, 06/21/22 4:09:00 CDT, Status: Inpatient, Telemetry Capable Location, Expected LOS: 2 Midnights, Max Puentes MD, Eliud RUDD Review/Approve Yes, Isolation: No Isolation/Standard Precautions, UGIB (upper gastrointestinal bleed) | Esophageal thick... 3. HTN (hypertension) (I10) Labetalol prn 4. Diabetes (E11.9) ISS q6h while NPO Prophylaxis SCD Disposition Anticipate discharge home[1] Chest 1view DX; Kwadwo Tran MD 06/20/2022 20:36 CDT [2] Chest/Abdomen/Pelvis w contrast CT; Dontae Croft MD 06/20/2022 21:30 CDT Max Puentes MDElectronically Signed: 06/21/22 04:[id number] and physicalLNHistory and physicalTXTAVAvailable for patient careAdventHealth Central [place]2022-10-23T22:47:29 2022-06-23 19:00:00 [id number]:00:00Shawn [facility] Aliza Iyer MD: PERFORMEvent Display: History and PhysicalAuthored Date: [id number] admitted by my colleague this morning. Patient seen and examined by me, she had bright red blood in her emesis breath, also with blood stains on clothing. Reports she has been coughing up blood. Continue patient on PPI and octreotide drip. Monitor H&H, awaiting GI evaluation.Aliza Escobar MDElectronically Signed: 06/21/22 15:[id number] and physicalLNHistory and physicalTXTAVAvailable for patient careAdventHealth [facility] [place]2022-10-23T22:47:29 2022-06-23 19:00:00 [id number]:00:00Max Puentes [facility] Tevin RUDD: PERFORM, MODIFYEvent Display: History and PhysicalAuthored Date: [id number] and Physical Team Contact Info: Hospitalist MedicineDOS: 06/21/22 Code Status: None Specified=FULL CODE Chief Complaint: Spitting up blood History of Present Illness: Ms. Villeda is a 56 yo F w/ PMHx of DM and CVA w/ R sided weakness (11/2021) who presented to the [facility] with concern about coughing up blood that appears to be hematemesis. She reports that for the past 2 weeks she has been vomiting gastric contents multiple times per day without bilious emesis or hematemesis. She reports that she is felt like food is getting stuck in her throat for the past week and that she has had 20 pounds of unintentional weight loss in the past month. At 5 PM this evening she began spitting up bright red blood which has persisted since that time. She denies any other symptoms. She reports that she has been using some Phenergan at home for her vomiting but denies any rkgq-ysz-pktebej medications. At [facility], vital signs were notable for mild tachycardia and hypertension 160s over 90s. Chest x-ray was unremarkable. CT chest abdomen and pelvis showed marked circumferential wall thickening diffusely in the esophagus compressing the lumen with mild edematous changes around the esophagus. Mild amount of air was also seen in the anterior urinary bladder and nonspecific changes of the spleen including heterogeneous parenchymal appearance and lobulated contours were also noted. Laboratory studies included WBC 16.9, hemoglobin 13, platelets 488, INR 1, creatinine 0.6, BUN 16. She was started on octreotide and pantoprazole drips. [facility] was contacted for further care due to unavailability of gastroenterology consultation. Review of Systems: Full 10 system ROS performed, pertinent positives and negatives documented in HPI Problem List/Past Medical History: DMCVA Procedure/Surgical History: Lower back surgery Family History: No CAD or CA Social History: Reports she began smoking 1 ppd in 2019, has cut back to 1/3 ppdDenies alcohol or drugs Allergies: No Known Medication Allergies Home Medications: Metformin 750 mg dailyOzempic weekly Physical Exam: Vitals and Measurements T: 98.2 F (Axillary) HR: 109 (Peripheral) RR: 20 BP: 154/99 SpO2: 98% WT: 69.091 kg BMI: 26.15 General Appearance: In mild distress, holding emesis back and spitting up / retching bright red bloodHead: Normocephalic, atraumaticEyes: No scleral icterus, extraocular movements grossly intactNose: Nares patent, no dischargeMouth: Moist mucous membranesNeck: Supple, no JVDChest Wall: No accessory muscle useLungs: CTA bilaterally, no wheezes/rales/rhonchi, good air entryHeart: Tachycardic, regular, no MRGsAbdomen: BSP, soft, NTNDMusculoskeletal: No obvious deformity. Moves all 4 extremitiesExtremities: Symmetric, no obvious defect, no edemaNeurologic: A&Ox4, clear speech, CN's grossly intact, strength grossly intactSkin: No jaundice, no rashPsych: Mood congruent affect, responds appropriately to questions Pertinent Labs: Reviewed Pertinent Imaging: (06/20/2022 20:36 CDT Chest 1view DX)IMPRESSION: No acute cardiopulmonary findings. [1] (06/20/2022 21:30 CDT Chest/Abdomen/Pelvis w contrast CT)IMPRESSION: CT Chest With Contrast; Diagnostic Marked circumferential [...] appear chronic in nature. Please evaluate clinically. [2] Assessment/Plan: 1. UGIB (upper gastrointestinal bleed) (K92.2) Admit as inpatient on telemetryHigh level of concern for esophageal cancer vs severe esophagitis given CT findings and unintentional weight lossGI consultedContinue pantoprazole and octreotide gtt'sNPOMIVFMonitor H&H and transfuse as needed Ordered: Admit/Condition, 06/21/22 4:09:00 CDT, Status: Inpatient, Telemetry Capable Location, Expected LOS: 2 Midnights, Max Puentes MD, Admit Review/Approve Yes, Isolation: No Isolation/Standard Precautions, UGIB (upper gastrointestinal bleed) | Esophageal thick... 2. Esophageal thickening (K22.89) As above Ordered: Admit/Condition, 06/21/22 4:09:00 CDT, Status: Inpatient, Telemetry Capable Location, Expected LOS: 2 Midnights, Max Puentes MD, Admit Review/Approve Yes, Isolation: No Isolation/Standard Precautions, UGIB (upper gastrointestinal bleed) | Esophageal thick... 3. HTN (hypertension) (I10) Labetalol prn 4. Diabetes (E11.9) ISS q6h while NPO Prophylaxis SCD Disposition Anticipate discharge home[1] Chest 1view DX; Kwadwo Tran MD 06/20/2022 20:36 CDT [2] Chest/Abdomen/Pelvis w contrast CT; Dontae Croft MD 06/20/2022 21:30 CDT Max Puentes MDElectronically Signed: 06/21/22 04:[id number] and physicalLNHistory and physicalTXTAVAvailable for patient careAdventHealth [facility] [place]2022-10-23T22:47:29 2022-06-23 19:00:00 [id number]:00:00Shawn [facility] Aliza Iyer MD: PERFORMEvent Display: History and PhysicalAuthored Date: [id number] admitted by my colleague this morning. Patient seen and examined by me, she had bright red blood in her emesis breath, also with blood stains on clothing. Reports she has been coughing up blood. Continue patient on PPI and octreotide drip. Monitor H&H, awaiting GI evaluation.Aliza Escobar MDElectronically Signed: 06/21/22 15:[id number] and physicalLNHistory and physicalTXTAVAvailable for patient careAdventHealth [facility] [place]2022-10-23T22:47:29 2022-06-23 19:00:00 [id number]:00:00Max Puentes [facility] Tevin RUDD: PERFORM, MODIFYEvent Display: History and PhysicalAuthored Date: [id number] and Physical Team Contact Info: Hospitalist MedicineDOS: 06/21/22 Code Status: None Specified=FULL CODE Chief Complaint: Spitting up blood History of Present Illness: Ms. Villeda is a 56 yo F w/ PMHx of DM and CVA w/ R sided weakness (11/2021) who presented to the [facility] with concern about coughing up blood that appears to be hematemesis. She reports that for the past 2 weeks she has been vomiting gastric contents multiple times per day without bilious emesis or hematemesis. She reports that she is felt like food is getting stuck in her throat for the past week and that she has had 20 pounds of unintentional weight loss in the past month. At 5 PM this evening she began spitting up bright red blood which has persisted since that time. She denies any other symptoms. She reports that she has been using some Phenergan at home for her vomiting but denies any kyvd-gwu-gfbetso medications. At [facility], vital signs were notable for mild tachycardia and hypertension 160s over 90s. Chest x-ray was unremarkable. CT chest abdomen and pelvis showed marked circumferential wall thickening diffusely in the esophagus compressing the lumen with mild edematous changes around the esophagus. Mild amount of air was also seen in the anterior urinary bladder and nonspecific changes of the spleen including heterogeneous parenchymal appearance and lobulated contours were also noted. Laboratory studies included WBC 16.9, hemoglobin 13, platelets 488, INR 1, creatinine 0.6, BUN 16. She was started on octreotide and pantoprazole drips. [facility] was contacted for further care due to unavailability of gastroenterology consultation. Review of Systems: Full 10 system ROS performed, pertinent positives and negatives documented in HPI Problem List/Past Medical History: [facility] Procedure/Surgical History: Lower back surgery Family History: No CAD or CA Social History: Reports she began smoking 1 ppd in 2019, has cut back to 1/3 ppdDenies alcohol or drugs Allergies: No Known Medication Allergies Home Medications: Metformin 750 mg dailyOzempic weekly Physical Exam: Vitals and Measurements T: 98.2 F (Axillary) HR: 109 (Peripheral) RR: 20 BP: 154/99 SpO2: 98% WT: 69.091 kg BMI: 26.15 General Appearance: In mild distress, holding emesis back and spitting up / retching bright red bloodHead: Normocephalic, atraumaticEyes: No scleral icterus, extraocular movements grossly intactNose: Nares patent, no dischargeMouth: Moist mucous membranesNeck: Supple, no JVDChest Wall: No accessory muscle useLungs: CTA bilaterally, no wheezes/rales/rhonchi, good air entryHeart: Tachycardic, regular, no MRGsAbdomen: BSP, soft, NTNDMusculoskeletal: No obvious deformity. Moves all 4 extremitiesExtremities: Symmetric, no obvious defect, no edemaNeurologic: A&Ox4, clear speech, CN's grossly intact, strength grossly intactSkin: No jaundice, no rashPsych: Mood congruent affect, responds appropriately to questions Pertinent Labs: Reviewed Pertinent Imaging: (06/20/2022 20:36 CDT Chest 1view DX)IMPRESSION: No acute cardiopulmonary findings. [1] (06/20/2022 21:30 CDT Chest/Abdomen/Pelvis w contrast CT)IMPRESSION: CT Chest With Contrast; Diagnostic Marked circumferential [...] appear chronic in nature. Please evaluate clinically. [2] Assessment/Plan: 1. UGIB (upper gastrointestinal bleed) (K92.2) Admit as inpatient on telemetryHigh level of concern for esophageal cancer vs severe esophagitis given CT findings and unintentional weight lossGI consultedContinue pantoprazole and octreotide gtt'sNPOMIVFMonitor H&H and transfuse as needed Ordered: Admit/Condition, 06/21/22 4:09:00 CDT, Status: Inpatient, Telemetry Capable Location, Expected LOS: 2 Midnights, Max Puentes MD, Admit Review/Approve Yes, Isolation: No Isolation/Standard Precautions, UGIB (upper gastrointestinal bleed) | Esophageal thick... 2. Esophageal thickening (K22.89) As above Ordered: Admit/Condition, 06/21/22 4:09:00 CDT, Status: Inpatient, Telemetry Capable Location, Expected LOS: 2 Midnights, Max Puentes MD, Admit Review/Approve Yes, Isolation: No Isolation/Standard Precautions, UGIB (upper gastrointestinal bleed) | Esophageal thick... 3. HTN (hypertension) (I10) Labetalol prn 4. Diabetes (E11.9) ISS q6h while NPO Prophylaxis SCD Disposition Anticipate discharge home[1] Chest 1view DX; Kwadwo Tran MD 06/20/2022 20:36 CDT [2] Chest/Abdomen/Pelvis w contrast CT; Dontae Croft MD 06/20/2022 21:30 CDT Max Puentes MDElectronically Signed: 06/21/22 04:[id number] and physicalLNHistory and physicalTXTAVAvailable for patient careAdventHealth [facility] [place]2022-10-23T22:47:29 2022-06-23 19:00:00 [id number]:00:00Shawn [facility] Aliza Iyer MD: PERFORMEvent Display: History and PhysicalAuthored Date: [id number] admitted by my colleague this morning. Patient seen and examined by me, she had bright red blood in her emesis breath, also with blood stains on clothing. Reports she has been coughing up blood. Continue patient on PPI and octreotide drip. Monitor H&H, awaiting GI evaluation.Aliza Escobar MDElectronically Signed: 06/21/22 15:[id number] and physicalLNHistory and physicalTXTAVAvailable for patient careAdventHealth [facility] [place]2022-10-23T22:47:29 2022-06-23 19:00:00 [id number]:00:00Max Puentes [facility] Tevin RUDD: PERFORM, MODIFYEvent Display: History and PhysicalAuthored Date: [id number] and Physical Team Contact Info: Hospitalist MedicineDOS: 06/21/22 Code Status: None Specified=FULL CODE Chief Complaint: Spitting up blood History of Present Illness: Ms. Villeda is a 56 yo F w/ PMHx of DM and CVA w/ R sided weakness (11/2021) who presented to the [facility] with concern about coughing up blood that appears to be hematemesis. She reports that for the past 2 weeks she has been vomiting gastric contents multiple times per day without bilious emesis or hematemesis. She reports that she is felt like food is getting stuck in her throat for the past week and that she has had 20 pounds of unintentional weight loss in the past month. At 5 PM this evening she began spitting up bright red blood which has persisted since that time. She denies any other symptoms. She reports that she has been using some Phenergan at home for her vomiting but denies any dbna-tmw-ybpoxze medications. At [facility], vital signs were notable for mild tachycardia and hypertension 160s over 90s. Chest x-ray was unremarkable. CT chest abdomen and pelvis showed marked circumferential wall thickening diffusely in the esophagus compressing the lumen with mild edematous changes around the esophagus. Mild amount of air was also seen in the anterior urinary bladder and nonspecific changes of the spleen including heterogeneous parenchymal appearance and lobulated contours were also noted. Laboratory studies included WBC 16.9, hemoglobin 13, platelets 488, INR 1, creatinine 0.6, BUN 16. She was started on octreotide and pantoprazole drips. [facility] was contacted for further care due to unavailability of gastroenterology consultation. Review of Systems: Full 10 system ROS performed, pertinent positives and negatives documented in HPI Problem List/Past Medical History: [facility]VA Procedure/Surgical History: Lower back surgery Family History: No CAD or CA Social History: Reports she began smoking 1 ppd in 2019, has cut back to 1/3 ppdDenies alcohol or drugs Allergies: No Known Medication Allergies Home Medications: Metformin 750 mg dailyOzempic weekly Physical Exam: Vitals and Measurements T: 98.2 F (Axillary) HR: 109 (Peripheral) RR: 20 BP: 154/99 SpO2: 98% WT: 69.091 kg BMI: 26.15 General Appearance: In mild distress, holding emesis back and spitting up / retching bright red bloodHead: Normocephalic, atraumaticEyes: No scleral icterus, extraocular movements grossly intactNose: Nares patent, no dischargeMouth: Moist mucous membranesNeck: Supple, no JVDChest Wall: No accessory muscle useLungs: CTA bilaterally, no wheezes/rales/rhonchi, good air entryHeart: Tachycardic, regular, no MRGsAbdomen: BSP, soft, NTNDMusculoskeletal: No obvious deformity. Moves all 4 extremitiesExtremities: Symmetric, no obvious defect, no edemaNeurologic: A&Ox4, clear speech, CN's grossly intact, strength grossly intactSkin: No jaundice, no rashPsych: Mood congruent affect, responds appropriately to questions Pertinent Labs: Reviewed Pertinent Imaging: (06/20/2022 20:36 CDT Chest 1view DX)IMPRESSION: No acute cardiopulmonary findings. [1] (06/20/2022 21:30 CDT Chest/Abdomen/Pelvis w contrast CT)IMPRESSION: CT Chest With Contrast; Diagnostic Marked circumferential [...] appear chronic in nature. Please evaluate clinically. [2] Assessment/Plan: 1. UGIB (upper gastrointestinal bleed) (K92.2) Admit as inpatient on telemetryHigh level of concern for esophageal cancer vs severe esophagitis given CT findings and unintentional weight lossGI consultedContinue pantoprazole and octreotide gtt'sNPOMIVFMonitor H&H and transfuse as needed Ordered: Admit/Condition, 06/21/22 4:09:00 CDT, Status: Inpatient, Telemetry Capable Location, Expected LOS: 2 Midnights, Max Puentes MD, Admit Review/Approve Yes, Isolation: No Isolation/Standard Precautions, UGIB (upper gastrointestinal bleed) | Esophageal thick... 2. Esophageal thickening (K22.89) As above Ordered: Admit/Condition, 06/21/22 4:09:00 CDT, Status: Inpatient, Telemetry Capable Location, Expected LOS: 2 Midnights, Max Puentes MD, Admit Review/Approve Yes, Isolation: No Isolation/Standard Precautions, UGIB (upper gastrointestinal bleed) | Esophageal thick... 3. HTN (hypertension) (I10) Labetalol prn 4. Diabetes (E11.9) ISS q6h while NPO Prophylaxis SCD Disposition Anticipate discharge home[1] Chest 1view DX; Kwadwo Tran MD 06/20/2022 20:36 CDT [2] Chest/Abdomen/Pelvis w contrast CT; Dontae Croft MD 06/20/2022 21:30 CDT Max Puentes MDElectronically Signed: 06/21/22 04:[id number] and physicalLNHistory and physicalTXTAVAvailable for patient [id number] and physicalLNMHIEMH [facility]Xwnpxmk8021-56-26G68:47:29 2022-06-23 19:00:00 [id number]:00:00Shawn [facility] Aliza Iyer MD: PERFORMEvent Display: History and PhysicalAuthored Date: [id number] admitted by my colleague this morning. Patient seen and examined by me, she had bright red blood in her emesis breath, also with blood stains on clothing. Reports she has been coughing up blood. Continue patient on PPI and octreotide drip. Monitor H&H, awaiting GI evaluation.Aliza Escobar MDElectronically Signed: 06/21/22 15:[id number] and physicalLNHistory and physicalTXTAVAvailable for patient [id number] and physicalLNMHIEMH [facility]anoDlwkjrj6827-52-26C08:47:29 2022-06-23 19:00:00 [id number]:00:00Max Puentes [facility] Tevin RUDD: PERFORM, MODIFYEvent Display: History and PhysicalAuthored Date: [id number] and Physical Team Contact Info: Hospitalist MedicineDOS: 06/21/22 Code Status: None Specified=FULL CODE Chief Complaint: Spitting up blood History of Present Illness: Ms. Villeda is a 56 yo F w/ PMHx of DM and CVA w/ R sided weakness (11/2021) who presented to the [facility] with concern about coughing up blood that appears to be hematemesis. She reports that for the past 2 weeks she has been vomiting gastric contents multiple times per day without bilious emesis or hematemesis. She reports that she is felt like food is getting stuck in her throat for the past week and that she has had 20 pounds of unintentional weight loss in the past month. At 5 PM this evening she began spitting up bright red blood which has persisted since that time. She denies any other symptoms. She reports that she has been using some Phenergan at home for her vomiting but denies any maww-dhh-yazpmzl medications. At [facility], vital signs were notable for mild tachycardia and hypertension 160s over 90s. Chest x-ray was unremarkable. CT chest abdomen and pelvis showed marked circumferential wall thickening diffusely in the esophagus compressing the lumen with mild edematous changes around the esophagus. Mild amount of air was also seen in the anterior urinary bladder and nonspecific changes of the spleen including heterogeneous parenchymal appearance and lobulated contours were also noted. Laboratory studies included WBC 16.9, hemoglobin 13, platelets 488, INR 1, creatinine 0.6, BUN 16. She was started on octreotide and pantoprazole drips. [facility] was contacted for further care due to unavailability of gastroenterology consultation. Review of Systems: Full 10 system ROS performed, pertinent positives and negatives documented in HPI Problem List/Past Medical History: DMCVA Procedure/Surgical History: Lower back surgery Family History: No CAD or CA Social History: Reports she began smoking 1 ppd in 2019, has cut back to 1/3 ppdDenies alcohol or drugs Allergies: No Known Medication Allergies Home Medications: Metformin 750 mg dailyOzempic weekly Physical Exam: Vitals and Measurements T: 98.2 F (Axillary) HR: 109 (Peripheral) RR: 20 BP: 154/99 SpO2: 98% WT: 69.091 kg BMI: 26.15 General Appearance: In mild distress, holding emesis back and spitting up / retching bright red bloodHead: Normocephalic, atraumaticEyes: No scleral icterus, extraocular movements grossly intactNose: Nares patent, no dischargeMouth: Moist mucous membranesNeck: Supple, no JVDChest Wall: No accessory muscle useLungs: CTA bilaterally, no wheezes/rales/rhonchi, good air entryHeart: Tachycardic, regular, no MRGsAbdomen: BSP, soft, NTNDMusculoskeletal: No obvious deformity. Moves all 4 extremitiesExtremities: Symmetric, no obvious defect, no edemaNeurologic: A&Ox4, clear speech, CN's grossly intact, strength grossly intactSkin: No jaundice, no rashPsych: Mood congruent affect, responds appropriately to questions Pertinent Labs: Reviewed Pertinent Imaging: (06/20/2022 20:36 CDT Chest 1view DX)IMPRESSION: No acute cardiopulmonary findings. [1] (06/20/2022 21:30 CDT Chest/Abdomen/Pelvis w contrast CT)IMPRESSION: CT Chest With Contrast; Diagnostic Marked circumferential [...] appear chronic in nature. Please evaluate clinically. [2] Assessment/Plan: 1. UGIB (upper gastrointestinal bleed) (K92.2) Admit as inpatient on telemetryHigh level of concern for esophageal cancer vs severe esophagitis given CT findings and unintentional weight lossGI consultedContinue pantoprazole and octreotide gtt'sNPOMIVFMonitor H&H and transfuse as needed Ordered: Admit/Condition, 06/21/22 4:09:00 CDT, Status: Inpatient, Telemetry Capable Location, Expected LOS: 2 Midnights, Max Puentes MD, Admit Review/Approve Yes, Isolation: No Isolation/Standard Precautions, UGIB (upper gastrointestinal bleed) | Esophageal thick... 2. Esophageal thickening (K22.89) As above Ordered: Admit/Condition, 06/21/22 4:09:00 CDT, Status: Inpatient, Telemetry Capable Location, Expected LOS: 2 Midnights, Max Puentes MD, Admit Review/Approve Yes, Isolation: No Isolation/Standard Precautions, UGIB (upper gastrointestinal bleed) | Esophageal thick... 3. HTN (hypertension) (I10) Labetalol prn 4. Diabetes (E11.9) ISS q6h while NPO Prophylaxis SCD Disposition Anticipate discharge home[1] Chest 1view DX; Kwadwo Tran MD 06/20/2022 20:36 CDT [2] Chest/Abdomen/Pelvis w contrast CT; Dontae Croft MD 06/20/2022 21:30 CDT Max Puentes MDElectronically Signed: 06/21/22 04:[id number] and physicalLNHistory and physicalTXTAVAvailable for patient [id number] and physicalLNMHIEThe [facility] CampusXtfvbhy4707-60-69V35:47:29 2022-06-23 19:00:00 [id number]:00:00Shawn [facility] Aliza Iyer MD: PERFORMEvent Display: History and PhysicalAuthored Date: [id number] admitted by my colleague this morning. Patient seen and examined by me, she had bright red blood in her emesis breath, also with blood stains on clothing. Reports she has been coughing up blood. Continue patient on PPI and octreotide drip. Monitor H&H, awaiting GI evaluation.Aliza Escobar MDElectronically Signed: 06/21/22 15:[id number] and physicalLNHistory and physicalTXTAVAvailable for patient [id number] and physicalLNMHIEThe [facility] CampusVlbzdff2706-45-32Y69:47:29 2022-06-23 19:00:00 [id number]:00:00Max Puentes [facility] Tevin RUDD: PERFORM, MODIFYEvent Display: History and PhysicalAuthored Date: [id number] and Physical Team Contact Info: Hospitalist MedicineDOS: 06/21/22 Code Status: None Specified=FULL CODE Chief Complaint: Spitting up blood History of Present Illness: Ms. Villeda is a 56 yo F w/ PMHx of DM and CVA w/ R sided weakness (11/2021) who presented to the [facility] with concern about coughing up blood that appears to be hematemesis. She reports that for the past 2 weeks she has been vomiting gastric contents multiple times per day without bilious emesis or hematemesis. She reports that she is felt like food is getting stuck in her throat for the past week and that she has had 20 pounds of unintentional weight loss in the past month. At 5 PM this evening she began spitting up bright red blood which has persisted since that time. She denies any other symptoms. She reports that she has been using some Phenergan at home for her vomiting but denies any zvgp-qcw-mvapaoj medications. At [facility], vital signs were notable for mild tachycardia and hypertension 160s over 90s. Chest x-ray was unremarkable. CT chest abdomen and pelvis showed marked circumferential wall thickening diffusely in the esophagus compressing the lumen with mild edematous changes around the esophagus. Mild amount of air was also seen in the anterior urinary bladder and nonspecific changes of the spleen including heterogeneous parenchymal appearance and lobulated contours were also noted. Laboratory studies included WBC 16.9, hemoglobin 13, platelets 488, INR 1, creatinine 0.6, BUN 16. She was started on octreotide and pantoprazole drips. [facility] was contacted for further care due to unavailability of gastroenterology consultation. Review of Systems: Full 10 system ROS performed, pertinent positives and negatives documented in HPI Problem List/Past Medical History: DMCVA Procedure/Surgical History: Lower back surgery Family History: No CAD or CA Social History: Reports she began smoking 1 ppd in 2019, has cut back to 1/3 ppdDenies alcohol or drugs Allergies: No Known Medication Allergies Home Medications: Metformin 750 mg dailyOzempic weekly Physical Exam: Vitals and Measurements T: 98.2 F (Axillary) HR: 109 (Peripheral) RR: 20 BP: 154/99 SpO2: 98% WT: 69.091 kg BMI: 26.15 General Appearance: In mild distress, holding emesis back and spitting up / retching bright red bloodHead: Normocephalic, atraumaticEyes: No scleral icterus, extraocular movements grossly intactNose: Nares patent, no dischargeMouth: Moist mucous membranesNeck: Supple, no JVDChest Wall: No accessory muscle useLungs: CTA bilaterally, no wheezes/rales/rhonchi, good air entryHeart: Tachycardic, regular, no MRGsAbdomen: BSP, soft, NTNDMusculoskeletal: No obvious deformity. Moves all 4 extremitiesExtremities: Symmetric, no obvious defect, no edemaNeurologic: A&Ox4, clear speech, CN's grossly intact, strength grossly intactSkin: No jaundice, no rashPsych: Mood congruent affect, responds appropriately to questions Pertinent Labs: Reviewed Pertinent Imaging: (06/20/2022 20:36 CDT Chest 1view DX)IMPRESSION: No acute cardiopulmonary findings. [1] (06/20/2022 21:30 CDT Chest/Abdomen/Pelvis w contrast CT)IMPRESSION: CT Chest With Contrast; Diagnostic Marked circumferential [...] appear chronic in nature. Please evaluate clinically. [2] Assessment/Plan: 1. UGIB (upper gastrointestinal bleed) (K92.2) Admit as inpatient on telemetryHigh level of concern for esophageal cancer vs severe esophagitis given CT findings and unintentional weight lossGI consultedContinue pantoprazole and octreotide gtt'sNPOMIVFMonitor H&H and transfuse as needed Ordered: Admit/Condition, 06/21/22 4:09:00 CDT, Status: Inpatient, Telemetry Capable Location, Expected LOS: 2 Midnights, Max Puentes MD, Admit Review/Approve Yes, Isolation: No Isolation/Standard Precautions, UGIB (upper gastrointestinal bleed) | Esophageal thick... 2. Esophageal thickening (K22.89) As above Ordered: Admit/Condition, 06/21/22 4:09:00 CDT, Status: Inpatient, Telemetry Capable Location, Expected LOS: 2 Midnights, Max Puentes MD, Admit Review/Approve Yes, Isolation: No Isolation/Standard Precautions, UGIB (upper gastrointestinal bleed) | Esophageal thick... 3. HTN (hypertension) (I10) Labetalol prn 4. Diabetes (E11.9) ISS q6h while NPO Prophylaxis SCD Disposition Anticipate discharge home[1] Chest 1view DX; Kwadwo Tran MD 06/20/2022 20:36 CDT [2] Chest/Abdomen/Pelvis w contrast CT; Dontae Croft MD 06/20/2022 21:30 CDT Max Puentes MDElectronically Signed: 06/21/22 04:[id number] and physicalLNHistory and physicalTXTAVAvailable for patient [id number] and physicalLNMHIEMH [facility]anoKowxitn6036-19-13Z58:47:29 2022-06-23 19:00:00 [id number]:00:00Shawn [facility] Aliza yIer MD: PERFORMEvent Display: History and PhysicalAuthored Date: [id number] admitted by my colleague this morning. Patient seen and examined by me, she had bright red blood in her emesis breath, also with blood stains on clothing. Reports she has been coughing up blood. Continue patient on PPI and octreotide drip. Monitor H&H, awaiting GI evaluation.Aliza Escobar MDElectronically Signed: 06/21/22 15:[id number] and physicalLNHistory and physicalTXTAVAvailable for patient [id number] and physicalLNMHIEMH [facility]anoAsbluys4987-66-54O09:47:29 2022-06-23 19:00:00 [id number]:00:00Max Puentes [facility] Tevin RUDD: PERFORM, MODIFYEvent Display: History and PhysicalAuthored Date: [id number] and Physical Team Contact Info: Hospitalist MedicineDOS: 06/21/22 Code Status: None Specified=FULL CODE Chief Complaint: Spitting up blood History of Present Illness: Ms. Villeda is a 56 yo F w/ PMHx of DM and CVA w/ R sided weakness (11/2021) who presented to the [facility] with concern about coughing up blood that appears to be hematemesis. She reports that for the past 2 weeks she has been vomiting gastric contents multiple times per day without bilious emesis or hematemesis. She reports that she is felt like food is getting stuck in her throat for the past week and that she has had 20 pounds of unintentional weight loss in the past month. At 5 PM this evening she began spitting up bright red blood which has persisted since that time. She denies any other symptoms. She reports that she has been using some Phenergan at home for her vomiting but denies any xyrq-lep-pwcqbvz medications. At [facility], vital signs were notable for mild tachycardia and hypertension 160s over 90s. Chest x-ray was unremarkable. CT chest abdomen and pelvis showed marked circumferential wall thickening diffusely in the esophagus compressing the lumen with mild edematous changes around the esophagus. Mild amount of air was also seen in the anterior urinary bladder and nonspecific changes of the spleen including heterogeneous parenchymal appearance and lobulated contours were also noted. Laboratory studies included WBC 16.9, hemoglobin 13, platelets 488, INR 1, creatinine 0.6, BUN 16. She was started on octreotide and pantoprazole drips. [facility] was contacted for further care due to unavailability of gastroenterology consultation. Review of Systems: Full 10 system ROS performed, pertinent positives and negatives documented in HPI Problem List/Past Medical History: DMCVA Procedure/Surgical History: Lower back surgery Family History: No CAD or CA Social History: Reports she began smoking 1 ppd in 2019, has cut back to 1/3 ppdDenies alcohol or drugs Allergies: No Known Medication Allergies Home Medications: Metformin 750 mg dailyOzempic weekly Physical Exam: Vitals and Measurements T: 98.2 F (Axillary) HR: 109 (Peripheral) RR: 20 BP: 154/99 SpO2: 98% WT: 69.091 kg BMI: 26.15 General Appearance: In mild distress, holding emesis back and spitting up / retching bright red bloodHead: Normocephalic, atraumaticEyes: No scleral icterus, extraocular movements grossly intactNose: Nares patent, no dischargeMouth: Moist mucous membranesNeck: Supple, no JVDChest Wall: No accessory muscle useLungs: CTA bilaterally, no wheezes/rales/rhonchi, good air entryHeart: Tachycardic, regular, no MRGsAbdomen: BSP, soft, NTNDMusculoskeletal: No obvious deformity. Moves all 4 extremitiesExtremities: Symmetric, no obvious defect, no edemaNeurologic: A&Ox4, clear speech, CN's grossly intact, strength grossly intactSkin: No jaundice, no rashPsych: Mood congruent affect, responds appropriately to questions Pertinent Labs: Reviewed Pertinent Imaging: (06/20/2022 20:36 CDT Chest 1view DX)IMPRESSION: No acute cardiopulmonary findings. [1] (06/20/2022 21:30 CDT Chest/Abdomen/Pelvis w contrast CT)IMPRESSION: CT Chest With Contrast; Diagnostic Marked circumferential [...] appear chronic in nature. Please evaluate clinically. [2] Assessment/Plan: 1. UGIB (upper gastrointestinal bleed) (K92.2) Admit as inpatient on telemetryHigh level of concern for esophageal cancer vs severe esophagitis given CT findings and unintentional weight lossGI consultedContinue pantoprazole and octreotide gtt'sNPOMIVFMonitor H&H and transfuse as needed Ordered: Admit/Condition, 06/21/22 4:09:00 CDT, Status: Inpatient, Telemetry Capable Location, Expected LOS: 2 Midnights, Max Puentes MD, Admit MD Review/Approve Yes, Isolation: No Isolation/Standard Precautions, UGIB (upper gastrointestinal bleed) | Esophageal thick... 2. Esophageal thickening (K22.89) As above Ordered: Admit/Condition, 06/21/22 4:09:00 CDT, Status: Inpatient, Telemetry Capable Location, Expected LOS: 2 Midnights, Max Peuntes MD, Admit Review/Approve Yes, Isolation: No Isolation/Standard Precautions, UGIB (upper gastrointestinal bleed) | Esophageal thick... 3. HTN (hypertension) (I10) Labetalol prn 4. Diabetes (E11.9) ISS q6h while NPO Prophylaxis SCD Disposition Anticipate discharge home[1] Chest 1view DX; Kwadwo Tran MD 06/20/2022 20:36 CDT [2] Chest/Abdomen/Pelvis w contrast CT; Croft, Raghuram Rl MD 06/20/2022 21:30 CDT Max Puentes MDElectronically Signed: 06/21/22 04:[id number] and physicalLNHistory and physicalTXTAVAvailable for patient [id number] and physicalLNMHIEMH [facility]anoRtzaovt7954-17-09Y41:47:29 2022-06-23 19:00:00 [id number]:00:00Shawn [facility] Aliza Iyer MD: PERFORMEvent Display: History and PhysicalAuthored Date: [id number] admitted by my colleague this morning. Patient seen and examined by me, she had bright red blood in her emesis breath, also with blood stains on clothing. Reports she has been coughing up blood. Continue patient on PPI and octreotide drip. Monitor H&H, awaiting GI evaluation.Aliza Escobar MDElectronically Signed: 06/21/22 15:[id number] and physicalLNHistory and physicalTXTAVAvailable for patient [id number] and physicalLNMHIEMH [facility]anoDcgrtfz5622-32-83B15:47:29 2022-06-23 19:00:00 [id number]:00:00Max Puentes [facility] Tevin RUDD: PERFORM, MODIFYEvent Display: History and PhysicalAuthored Date: [id number] and Physical Team Contact Info: Hospitalist MedicineDOS: 06/21/22 Code Status: None Specified=FULL CODE Chief Complaint: Spitting up blood History of Present Illness: Ms. Villeda is a 56 yo F w/ PMHx of DM and CVA w/ R sided weakness (11/2021) who presented to the [facility] with concern about coughing up blood that appears to be hematemesis. She reports that for the past 2 weeks she has been vomiting gastric contents multiple times per day without bilious emesis or hematemesis. She reports that she is felt like food is getting stuck in her throat for the past week and that she has had 20 pounds of unintentional weight loss in the past month. At 5 PM this evening she began spitting up bright red blood which has persisted since that time. She denies any other symptoms. She reports that she has been using some Phenergan at home for her vomiting but denies any svva-xxk-qgjyadu medications. At [facility], vital signs were notable for mild tachycardia and hypertension 160s over 90s. Chest x-ray was unremarkable. CT chest abdomen and pelvis showed marked circumferential wall thickening diffusely in the esophagus compressing the lumen with mild edematous changes around the esophagus. Mild amount of air was also seen in the anterior urinary bladder and nonspecific changes of the spleen including heterogeneous parenchymal appearance and lobulated contours were also noted. Laboratory studies included WBC 16.9, hemoglobin 13, platelets 488, INR 1, creatinine 0.6, BUN 16. She was started on octreotide and pantoprazole drips. [facility] was contacted for further care due to unavailability of gastroenterology consultation. Review of Systems: Full 10 system ROS performed, pertinent positives and negatives documented in HPI Problem List/Past Medical History: DMCVA Procedure/Surgical History: Lower back surgery Family History: No CAD or CA Social History: Reports she began smoking 1 ppd in 2019, has cut back to 1/3 ppdDenies alcohol or drugs Allergies: No Known Medication Allergies Home Medications: Metformin 750 mg dailyOzempic weekly Physical Exam: Vitals and Measurements T: 98.2 F (Axillary) HR: 109 (Peripheral) RR: 20 BP: 154/99 SpO2: 98% WT: 69.091 kg BMI: 26.15 General Appearance: In mild distress, holding emesis back and spitting up / retching bright red bloodHead: Normocephalic, atraumaticEyes: No scleral icterus, extraocular movements grossly intactNose: Nares patent, no dischargeMouth: Moist mucous membranesNeck: Supple, no JVDChest Wall: No accessory muscle useLungs: CTA bilaterally, no wheezes/rales/rhonchi, good air entryHeart: Tachycardic, regular, no MRGsAbdomen: BSP, soft, NTNDMusculoskeletal: No obvious deformity. Moves all 4 extremitiesExtremities: Symmetric, no obvious defect, no edemaNeurologic: A&Ox4, clear speech, CN's grossly intact, strength grossly intactSkin: No jaundice, no rashPsych: Mood congruent affect, responds appropriately to questions Pertinent Labs: Reviewed Pertinent Imaging: (06/20/2022 20:36 CDT Chest 1view DX)IMPRESSION: No acute cardiopulmonary findings. [1] (06/20/2022 21:30 CDT Chest/Abdomen/Pelvis w contrast CT)IMPRESSION: CT Chest With Contrast; Diagnostic Marked circumferential [...] appear chronic in nature. Please evaluate clinically. [2] Assessment/Plan: 1. UGIB (upper gastrointestinal bleed) (K92.2) Admit as inpatient on telemetryHigh level of concern for esophageal cancer vs severe esophagitis given CT findings and unintentional weight lossGI consultedContinue pantoprazole and octreotide gtt'sNPOMIVFMonitor H&H and transfuse as needed Ordered: Admit/Condition, 06/21/22 4:09:00 CDT, Status: Inpatient, Telemetry Capable Location, Expected LOS: 2 Midnights, Max Puentes MD, Admit Review/Approve Yes, Isolation: No Isolation/Standard Precautions, UGIB (upper gastrointestinal bleed) | Esophageal thick... 2. Esophageal thickening (K22.89) As above Ordered: Admit/Condition, 06/21/22 4:09:00 CDT, Status: Inpatient, Telemetry Capable Location, Expected LOS: 2 Midnights, Max Puentes MD, Admit Review/Approve Yes, Isolation: No Isolation/Standard Precautions, UGIB (upper gastrointestinal bleed) | Esophageal thick... 3. HTN (hypertension) (I10) Labetalol prn 4. Diabetes (E11.9) ISS q6h while NPO Prophylaxis SCD Disposition Anticipate discharge home[1] Chest 1view DX; Kwadwo Tran MD 06/20/2022 20:36 CDT [2] Chest/Abdomen/Pelvis w contrast CT; Dontae Croft MD 06/20/2022 21:30 CDT Max Puentes MDElectronically Signed: 06/21/22 04:[id number] and physicalLNHistory and physicalTXTAVAvailable for patient [id number] and physicalLNMHIEThe [facility] CampusJggyrgv1556-86-39O23:47:29 2022-06-23 19:00:00 [id number]:00:00Shawn [facility] Aliza Iyer MD: PERFORMEvent Display: History and PhysicalAuthored Date: [id number] admitted by my colleague this morning. Patient seen and examined by me, she had bright red blood in her emesis breath, also with blood stains on clothing. Reports she has been coughing up blood. Continue patient on PPI and octreotide drip. Monitor H&H, awaiting GI evaluation.Aliza Escobar MDElectronically Signed: 06/21/22 15:[id number] and physicalLNHistory and physicalTXTAVAvailable for patient [id number] and physicalLNMHIEThe [facility] CampusZaqjufp0450-70-71B30:47:29 2022-06-23 19:00:00 [id number]:00:00Max Puentes [facility] Tevin RUDD: PERFORM, MODIFYEvent Display: History and PhysicalAuthored Date: [id number] and Physical Team Contact Info: Hospitalist MedicineDOS: 06/21/22 Code Status: None Specified=FULL CODE Chief Complaint: Spitting up blood History of Present Illness: Ms. Villeda is a 56 yo F w/ PMHx of DM and CVA w/ R sided weakness (11/2021) who presented to the [facility] with concern about coughing up blood that appears to be hematemesis. She reports that for the past 2 weeks she has been vomiting gastric contents multiple times per day without bilious emesis or hematemesis. She reports that she is felt like food is getting stuck in her throat for the past week and that she has had 20 pounds of unintentional weight loss in the past month. At 5 PM this evening she began spitting up bright red blood which has persisted since that time. She denies any other symptoms. She reports that she has been using some Phenergan at home for her vomiting but denies any dgvf-wss-kjaeekt medications. At [facility], vital signs were notable for mild tachycardia and hypertension 160s over 90s. Chest x-ray was unremarkable. CT chest abdomen and pelvis showed marked circumferential wall thickening diffusely in the esophagus compressing the lumen with mild edematous changes around the esophagus. Mild amount of air was also seen in the anterior urinary bladder and nonspecific changes of the spleen including heterogeneous parenchymal appearance and lobulated contours were also noted. Laboratory studies included WBC 16.9, hemoglobin 13, platelets 488, INR 1, creatinine 0.6, BUN 16. She was started on octreotide and pantoprazole drips. [facility] was contacted for further care due to unavailability of gastroenterology consultation. Review of Systems: Full 10 system ROS performed, pertinent positives and negatives documented in HPI Problem List/Past Medical History: DMCVA Procedure/Surgical History: Lower back surgery Family History: No CAD or CA Social History: Reports she began smoking 1 ppd in 2019, has cut back to 1/3 ppdDenies alcohol or drugs Allergies: No Known Medication Allergies Home Medications: Metformin 750 mg dailyOzempic weekly Physical Exam: Vitals and Measurements T: 98.2 F (Axillary) HR: 109 (Peripheral) RR: 20 BP: 154/99 SpO2: 98% WT: 69.091 kg BMI: 26.15 General Appearance: In mild distress, holding emesis back and spitting up / retching bright red bloodHead: Normocephalic, atraumaticEyes: No scleral icterus, extraocular movements grossly intactNose: Nares patent, no dischargeMouth: Moist mucous membranesNeck: Supple, no JVDChest Wall: No accessory muscle useLungs: CTA bilaterally, no wheezes/rales/rhonchi, good air entryHeart: Tachycardic, regular, no MRGsAbdomen: BSP, soft, NTNDMusculoskeletal: No obvious deformity. Moves all 4 extremitiesExtremities: Symmetric, no obvious defect, no edemaNeurologic: A&Ox4, clear speech, CN's grossly intact, strength grossly intactSkin: No jaundice, no rashPsych: Mood congruent affect, responds appropriately to questions Pertinent Labs: Reviewed Pertinent Imaging: (06/20/2022 20:36 CDT Chest 1view DX)IMPRESSION: No acute cardiopulmonary findings. [1] (06/20/2022 21:30 CDT Chest/Abdomen/Pelvis w contrast CT)IMPRESSION: CT Chest With Contrast; Diagnostic Marked circumferential [...] appear chronic in nature. Please evaluate clinically. [2] Assessment/Plan: 1. UGIB (upper gastrointestinal bleed) (K92.2) Admit as inpatient on telemetryHigh level of concern for esophageal cancer vs severe esophagitis given CT findings and unintentional weight lossGI consultedContinue pantoprazole and octreotide gtt'sNPOMIVFMonitor H&H and transfuse as needed Ordered: Admit/Condition, 06/21/22 4:09:00 CDT, Status: Inpatient, Telemetry Capable Location, Expected LOS: 2 Midnights, Max Puentes MD, Admit Review/Approve Yes, Isolation: No Isolation/Standard Precautions, UGIB (upper gastrointestinal bleed) | Esophageal thick... 2. Esophageal thickening (K22.89) As above Ordered: Admit/Condition, 06/21/22 4:09:00 CDT, Status: Inpatient, Telemetry Capable Location, Expected LOS: 2 Midnights, Max Puentes MD, Admit Review/Approve Yes, Isolation: No Isolation/Standard Precautions, UGIB (upper gastrointestinal bleed) | Esophageal thick... 3. HTN (hypertension) (I10) Labetalol prn 4. Diabetes (E11.9) ISS q6h while NPO Prophylaxis SCD Disposition Anticipate discharge home[1] Chest 1view DX; Kwadwo Tran MD 06/20/2022 20:36 CDT [2] Chest/Abdomen/Pelvis w contrast CT; Donate Croft MD 06/20/2022 21:30 CDT Max Puentes MDElectronically Signed: 06/21/22 04:[id number] and physicalLNHistory and physicalTXTAVAvailable for patient [id number] and physicalLNMHIEMH [facility]anoXomflfs6848-06-20C72:47:29 2022-06-23 19:00:00 [id number]:00:00Shawn [facility] Aliza Iyer MD: PERFORMEvent Display: History and PhysicalAuthored Date: [id number] admitted by my colleague this morning. Patient seen and examined by me, she had bright red blood in her emesis breath, also with blood stains on clothing. Reports she has been coughing up blood. Continue patient on PPI and octreotide drip. Monitor H&H, awaiting GI evaluation.Aliza Escobar MDElectronically Signed: 06/21/22 15:[id number] and physicalLNHistory and physicalTXTAVAvailable for patient [id number] and physicalLNMHIEMH [facility]anoHkwpxjm5906-93-97A81:47:29 2022-06-23 19:00:00 [id number]:00:00Max Puentes [facility] Tevin RUDD: PERFORM, MODIFYEvent Display: History and PhysicalAuthored Date: [id number] and Physical Team Contact Info: Hospitalist MedicineDOS: 06/21/22 Code Status: None Specified=FULL CODE Chief Complaint: Spitting up blood History of Present Illness: Ms. Villeda is a 56 yo F w/ PMHx of DM and CVA w/ R sided weakness (11/2021) who presented to the [facility] with concern about coughing up blood that appears to be hematemesis. She reports that for the past 2 weeks she has been vomiting gastric contents multiple times per day without bilious emesis or hematemesis. She reports that she is felt like food is getting stuck in her throat for the past week and that she has had 20 pounds of unintentional weight loss in the past month. At 5 PM this evening she began spitting up bright red blood which has persisted since that time. She denies any other symptoms. She reports that she has been using some Phenergan at home for her vomiting but denies any geqk-zjv-efnpigy medications. At [facility], vital signs were notable for mild tachycardia and hypertension 160s over 90s. Chest x-ray was unremarkable. CT chest abdomen and pelvis showed marked circumferential wall thickening diffusely in the esophagus compressing the lumen with mild edematous changes around the esophagus. Mild amount of air was also seen in the anterior urinary bladder and nonspecific changes of the spleen including heterogeneous parenchymal appearance and lobulated contours were also noted. Laboratory studies included WBC 16.9, hemoglobin 13, platelets 488, INR 1, creatinine 0.6, BUN 16. She was started on octreotide and pantoprazole drips. [facility] was contacted for further care due to unavailability of gastroenterology consultation. Review of Systems: Full 10 system ROS performed, pertinent positives and negatives documented in HPI Problem List/Past Medical History: DMCVA Procedure/Surgical History: Lower back surgery Family History: No CAD or CA Social History: Reports she began smoking 1 ppd in 2019, has cut back to 1/3 ppdDenies alcohol or drugs Allergies: No Known Medication Allergies Home Medications: Metformin 750 mg dailyOzempic weekly Physical Exam: Vitals and Measurements T: 98.2 F (Axillary) HR: 109 (Peripheral) RR: 20 BP: 154/99 SpO2: 98% WT: 69.091 kg BMI: 26.15 General Appearance: In mild distress, holding emesis back and spitting up / retching bright red bloodHead: Normocephalic, atraumaticEyes: No scleral icterus, extraocular movements grossly intactNose: Nares patent, no dischargeMouth: Moist mucous membranesNeck: Supple, no JVDChest Wall: No accessory muscle useLungs: CTA bilaterally, no wheezes/rales/rhonchi, good air entryHeart: Tachycardic, regular, no MRGsAbdomen: BSP, soft, NTNDMusculoskeletal: No obvious deformity. Moves all 4 extremitiesExtremities: Symmetric, no obvious defect, no edemaNeurologic: A&Ox4, clear speech, CN's grossly intact, strength grossly intactSkin: No jaundice, no rashPsych: Mood congruent affect, responds appropriately to questions Pertinent Labs: Reviewed Pertinent Imaging: (06/20/2022 20:36 CDT Chest 1view DX)IMPRESSION: No acute cardiopulmonary findings. [1] (06/20/2022 21:30 CDT Chest/Abdomen/Pelvis w contrast CT)IMPRESSION: CT Chest With Contrast; Diagnostic Marked circumferential [...] appear chronic in nature. Please evaluate clinically. [2] Assessment/Plan: 1. UGIB (upper gastrointestinal bleed) (K92.2) Admit as inpatient on telemetryHigh level of concern for esophageal cancer vs severe esophagitis given CT findings and unintentional weight lossGI consultedContinue pantoprazole and octreotide gtt'sNPOMIVFMonitor H&H and transfuse as needed Ordered: Admit/Condition, 06/21/22 4:09:00 CDT, Status: Inpatient, Telemetry Capable Location, Expected LOS: 2 Midnights, Max Puentes MD, Admit Review/Approve Yes, Isolation: No Isolation/Standard Precautions, UGIB (upper gastrointestinal bleed) | Esophageal thick... 2. Esophageal thickening (K22.89) As above Ordered: Admit/Condition, 06/21/22 4:09:00 CDT, Status: Inpatient, Telemetry Capable Location, Expected LOS: 2 Midnights, Max Puentes MD, Admit Review/Approve Yes, Isolation: No Isolation/Standard Precautions, UGIB (upper gastrointestinal bleed) | Esophageal thick... 3. HTN (hypertension) (I10) Labetalol prn 4. Diabetes (E11.9) ISS q6h while NPO Prophylaxis SCD Disposition Anticipate discharge home[1] Chest 1view DX; Kwadwo Tran MD 06/20/2022 20:36 CDT [2] Chest/Abdomen/Pelvis w contrast CT; Dontae Croft MD 06/20/2022 21:30 CDT Max Puentes MDElectronically Signed: 06/21/22 04:[id number] and physicalLNHistory and physicalTXTAVAvailable for patient [id number] and physicalLNMHIEThe [facility] CampusTongsjp6215-68-59O61:47:29 2022-06-23 19:00:00 [id number]:00:00Shawn [facility] Aliza Iyer MD: PERFORMEvent Display: History and PhysicalAuthored Date: [id number] admitted by my colleague this morning. Patient seen and examined by me, she had bright red blood in her emesis breath, also with blood stains on clothing. Reports she has been coughing up blood. Continue patient on PPI and octreotide drip. Monitor H&H, awaiting GI evaluation.Aliza Escobar MDElectronically Signed: 06/21/22 15:[id number] and physicalLNHistory and physicalTXTAVAvailable for patient [id number] and physicalLNMHIEThe [facility] CampusFqmkbdi5021-63-91L27:47:29 2022-06-23 19:00:00 [id number]:00:00Max Puentes [facility] Tevin RUDD: PERFORM, MODIFYEvent Display: History and PhysicalAuthored Date: [id number] and Physical Team Contact Info: Hospitalist MedicineDOS: 06/21/22 Code Status: None Specified=FULL CODE Chief Complaint: Spitting up blood History of Present Illness: Ms. Villeda is a 56 yo F w/ PMHx of DM and CVA w/ R sided weakness (11/2021) who presented to the [facility] with concern about coughing up blood that appears to be hematemesis. She reports that for the past 2 weeks she has been vomiting gastric contents multiple times per day without bilious emesis or hematemesis. She reports that she is felt like food is getting stuck in her throat for the past week and that she has had 20 pounds of unintentional weight loss in the past month. At 5 PM this evening she began spitting up bright red blood which has persisted since that time. She denies any other symptoms. She reports that she has been using some Phenergan at home for her vomiting but denies any ascw-ezb-dclszje medications. At [facility], vital signs were notable for mild tachycardia and hypertension 160s over 90s. Chest x-ray was unremarkable. CT chest abdomen and pelvis showed marked circumferential wall thickening diffusely in the esophagus compressing the lumen with mild edematous changes around the esophagus. Mild amount of air was also seen in the anterior urinary bladder and nonspecific changes of the spleen including heterogeneous parenchymal appearance and lobulated contours were also noted. Laboratory studies included WBC 16.9, hemoglobin 13, platelets 488, INR 1, creatinine 0.6, BUN 16. She was started on octreotide and pantoprazole drips. [facility] was contacted for further care due to unavailability of gastroenterology consultation. Review of Systems: Full 10 system ROS performed, pertinent positives and negatives documented in HPI Problem List/Past Medical History: DMCVA Procedure/Surgical History: Lower back surgery Family History: No CAD or CA Social History: Reports she began smoking 1 ppd in 2019, has cut back to 1/3 ppdDenies alcohol or drugs Allergies: No Known Medication Allergies Home Medications: Metformin 750 mg dailyOzempic weekly Physical Exam: Vitals and Measurements T: 98.2 F (Axillary) HR: 109 (Peripheral) RR: 20 BP: 154/99 SpO2: 98% WT: 69.091 kg BMI: 26.15 General Appearance: In mild distress, holding emesis back and spitting up / retching bright red bloodHead: Normocephalic, atraumaticEyes: No scleral icterus, extraocular movements grossly intactNose: Nares patent, no dischargeMouth: Moist mucous membranesNeck: Supple, no JVDChest Wall: No accessory muscle useLungs: CTA bilaterally, no wheezes/rales/rhonchi, good air entryHeart: Tachycardic, regular, no MRGsAbdomen: BSP, soft, NTNDMusculoskeletal: No obvious deformity. Moves all 4 extremitiesExtremities: Symmetric, no obvious defect, no edemaNeurologic: A&Ox4, clear speech, CN's grossly intact, strength grossly intactSkin: No jaundice, no rashPsych: Mood congruent affect, responds appropriately to questions Pertinent Labs: Reviewed Pertinent Imaging: (06/20/2022 20:36 CDT Chest 1view DX)IMPRESSION: No acute cardiopulmonary findings. [1] (06/20/2022 21:30 CDT Chest/Abdomen/Pelvis w contrast CT)IMPRESSION: CT Chest With Contrast; Diagnostic Marked circumferential [...] appear chronic in nature. Please evaluate clinically. [2] Assessment/Plan: 1. UGIB (upper gastrointestinal bleed) (K92.2) Admit as inpatient on telemetryHigh level of concern for esophageal cancer vs severe esophagitis given CT findings and unintentional weight lossGI consultedContinue pantoprazole and octreotide gtt'sNPOMIVFMonitor H&H and transfuse as needed Ordered: Admit/Condition, 06/21/22 4:09:00 CDT, Status: Inpatient, Telemetry Capable Location, Expected LOS: 2 Midnights, Max Puentes MD, Admit Review/Approve Yes, Isolation: No Isolation/Standard Precautions, UGIB (upper gastrointestinal bleed) | Esophageal thick... 2. Esophageal thickening (K22.89) As above Ordered: Admit/Condition, 06/21/22 4:09:00 CDT, Status: Inpatient, Telemetry Capable Location, Expected LOS: 2 Midnights, Max Puentes MD, Admit Review/Approve Yes, Isolation: No Isolation/Standard Precautions, UGIB (upper gastrointestinal bleed) | Esophageal thick... 3. HTN (hypertension) (I10) Labetalol prn 4. Diabetes (E11.9) ISS q6h while NPO Prophylaxis SCD Disposition Anticipate discharge home[1] Chest 1view DX; Kwadwo Tran MD 06/20/2022 20:36 CDT [2] Chest/Abdomen/Pelvis w contrast CT; Dontae Croft MD 06/20/2022 21:30 CDT Max Puentes MDElectronically Signed: 06/21/22 04:[id number] and physicalLNHistory and physicalTXTAVAvailable for patient [id number] and physicalLNMHIEThe [facility] CampusGvkjbdm4221-62-35I48:47:29 2022-06-23 19:00:00 1526-06-22G14:00:00Shawn [facility] [facility] Aliza Iyer MD: PERFORMEvent Display: History and PhysicalAuthored Date: [id number] admitted by my colleague this morning. Patient seen and examined by me, she had bright red blood in her emesis breath, also with blood stains on clothing. Reports she has been coughing up blood. Continue patient on PPI and octreotide drip. Monitor H&H, awaiting GI evaluation.Aliza Escobar MDElectronically Signed: 06/21/22 [id number] and physicalLNHistory and physicalTXTAVAvailable for patient [id number] and physicalLNMHIEThe [facility] [id number]:47:29 2022-06-23 19:00:00 [id number]:00:00Max Puentes [facility] Tevin RUDD: PERFORM, MODIFYEvent Display: History and PhysicalAuthored Date: [id number] and Physical Team Contact Info: Hospitalist MedicineDOS: 06/21/22 Code Status: None Specified=FULL CODE Chief Complaint: Spitting up blood History of Present Illness: Ms. Villeda is a 56 yo F w/ PMHx of DM and CVA w/ R sided weakness (11/2021) who presented to the [facility] with concern about coughing up blood that appears to be hematemesis. She reports that for the past 2 weeks she has been vomiting gastric contents multiple times per day without bilious emesis or hematemesis. She reports that she is felt like food is getting stuck in her throat for the past week and that she has had 20 pounds of unintentional weight loss in the past month. At 5 PM this evening she began spitting up bright red blood which has persisted since that time. She denies any other symptoms. She reports that she has been using some Phenergan at home for her vomiting but denies any [id number] medications. At [facility], vital signs were notable for mild tachycardia and hypertension 160s over 90s. Chest x-ray was unremarkable. CT chest abdomen and pelvis showed marked circumferential wall thickening diffusely in the esophagus compressing the lumen with mild edematous changes around the esophagus. Mild amount of air was also seen in the anterior urinary bladder and nonspecific changes of the spleen including heterogeneous parenchymal appearance and lobulated contours were also noted. Laboratory studies included WBC 16.9, hemoglobin 13, platelets 488, INR 1, creatinine 0.6, BUN 16. She was started on octreotide and pantoprazole drips. [facility] was contacted for further care due to unavailability of gastroenterology consultation. Review of Systems: Full 10 system ROS performed, pertinent positives and negatives documented in HPI Problem List/Past Medical History: [facility] Procedure/Surgical History: Lower back surgery Family History: No CAD or CA Social History: Reports she began smoking 1 ppd in 2019, has cut back to 1/3 ppdDenies alcohol or drugs Allergies: No Known Medication Allergies Home Medications: Metformin 750 mg dailyOzempic weekly Physical Exam: Vitals and Measurements T: 98.2 F (Axillary) HR: 109 (Peripheral) RR: 20 BP: 154/99 SpO2: 98% WT: 69.091 kg BMI: 26.15 General Appearance: In mild distress, holding emesis back and spitting up / retching bright red bloodHead: Normocephalic, atraumaticEyes: No scleral icterus, extraocular movements grossly intactNose: Nares patent, no dischargeMouth: Moist mucous membranesNeck: Supple, no JVDChest Wall: No accessory muscle useLungs: CTA bilaterally, no wheezes/rales/rhonchi, good air entryHeart: Tachycardic, regular, no MRGsAbdomen: BSP, soft, NTNDMusculoskeletal: No obvious deformity. Moves all 4 extremitiesExtremities: Symmetric, no obvious defect, no edemaNeurologic: A&Ox4, clear speech, CN's grossly intact, strength grossly intactSkin: No jaundice, no rashPsych: Mood congruent affect, responds appropriately to questions Pertinent Labs: Reviewed Pertinent Imaging: (06/20/2022 20:36 CDT Chest 1view DX)IMPRESSION: No acute cardiopulmonary findings. [1] (06/20/2022 21:30 CDT Chest/Abdomen/Pelvis w contrast CT)IMPRESSION: CT Chest With Contrast; Diagnostic Marked circumferential [...] appear chronic in nature. Please evaluate clinically. [2] Assessment/Plan: 1. UGIB (upper gastrointestinal bleed) (K92.2) Admit as inpatient on telemetryHigh level of concern for esophageal cancer vs severe esophagitis given CT findings and unintentional weight lossGI consultedContinue pantoprazole and octreotide gtt'sNPOMIVFMonitor H&H and transfuse as needed Ordered: Admit/Condition, 06/21/22 4:09:00 CDT, Status: Inpatient, Telemetry Capable Location, Expected LOS: 2 Midnights, Max Puentes MD, Admit Review/Approve Yes, Isolation: No Isolation/Standard Precautions, UGIB (upper gastrointestinal bleed) | Esophageal thick... 2. Esophageal thickening (K22.89) As above Ordered: Admit/Condition, 06/21/22 4:09:00 CDT, Status: Inpatient, Telemetry Capable Location, Expected LOS: 2 Midnights, Max Puentes MD, Admit Review/Approve Yes, Isolation: No Isolation/Standard Precautions, UGIB (upper gastrointestinal bleed) | Esophageal thick... 3. HTN (hypertension) (I10) Labetalol prn 4. Diabetes (E11.9) ISS q6h while NPO Prophylaxis SCD Disposition Anticipate discharge home[1] Chest 1view DX; Kwadwo Tran MD 06/20/2022 20:36 CDT [2] Chest/Abdomen/Pelvis w contrast CT; Dontae Croft MD 06/20/2022 21:30 CDT Max Puentes MDElectronically Signed: 06/21/22 [id number] and physicalLNHistory and physicalTXTAVAvailable for patient [id number] and physicalLNMHIEThe [facility] [place] [id number]:47:29 2022-06-23 19:00:00 [id number]:00:00AURELIA Escobar [facility] Aliza Iyer MD: PERFORMEvent Display: History and PhysicalAuthored Date: [id number] admitted by my colleague this morning. Patient seen and examined by me, she had bright red blood in her emesis breath, also with blood stains on clothing. Reports she has been coughing up blood. Continue patient on PPI and octreotide drip. Monitor H&H, awaiting GI evaluation.Aliza Escobar MDElectronically Signed: 06/21/22 [id number] and physicalLNHistory and physicalTXTAVAvailable for patient [id number] and physicalLNMHIEThe [facility] [place] [id number]:47:29
== END 2023-07-15 22:03 | disposition home or self-care (01) ==
LOC: ER 21:27
DX: L85.3 Xerosis cutis (principal); R21 Rash and other nonspecific skin eruption
CPT/HCPCS: 99282